=== PATIENT | female | born 1990 | race Caucasian/White ===

== ENCOUNTER 2024-01-28 10:41 | Outpatient (OUT) | payer BC, SELFPAY ==
[2024-01-28 11:16] LABS: Basophils Absolute Auto 0.1 10^3/uL (0.0-0.1); Basophils Percent Auto 0.6 % (0.2-2.0); Eosinophils Absolute Auto 0.4 10^3/uL (0.0-0.7); Eosinophils Percent Auto 4.1 % (0.9-7.0); Hematocrit 39.8 % (36.0-48.0); Hemoglobin 12.2 g/dL (12.0-16.0); Immature Granulocytes Abs Auto 0.04 10^3/uL (0.00-0.03); Immature Granulocytes Pct Auto 0.4 % (0.0-0.5); Lymphocytes Absolute Auto 2.2 10^3/uL (1.2-3.8); Lymphocytes Percent Auto 21.4 % (20.5-60.0); Mean Corpuscular HGB Conc 30.7 g/dL (29.9-35.2); Mean Corpuscular Hemoglobin 25.4 pg (26.7-34.0); Mean Corpuscular Volume 82.9 fL (81.0-99.0); Mean Platelet Volume 9.6 fL (9.5-13.5); Monocytes Absolute Auto 0.5 10^3/uL (0.3-0.8); Monocytes Percent Auto 4.7 % (1.7-12.0); Neutrophils Absolute Auto 6.9 10^3/uL (1.4-6.5); Neutrophils Percent Auto 68.8 % (43.0-75.0); Platelet Count 337 10^3/uL (150-450); Red Cell Distribution Width 14.5 % (11.0-15.0); White Blood Count 10.1 10^3/uL (4.0-11.0)
[2024-01-28 11:39] LABS: Estimated Average Glucose 123 mg/dL; Glycohemoglobin A1C 5.9 % (4.5-6.2)
[2024-01-28 12:42] LABS: Alanine Aminotransferase 37 U/L (14-59); Albumin Globulin Ratio 0.8; Albumin Level 3.3 g/dL (3.4-5.0); Alkaline Phosphatase 64 U/L (46-116); Anion Gap 10.6; Aspartate Amino Transferase 20 U/L (15-37); BUN Creatinine Ratio 20.5; Calcium 8.8 mg/dL (8.5-10.1); Carbon Dioxide 29.4 mmol/L (21.0-32.0); Chloride 104 mmol/L (98-107); Chol HDL Ratio 4.7; Cholesterol 175 mg/dL (<=200); Estimated GFR (African America >60 (>=60); Estimated GFR (Non-African Ame >60 (>=60); Free T3 2.58 pg/mL (2.18-3.98); Globulin 4.4 g/dL; Glucose 83 mg/dL (74-106); HDL Cholesterol 37 mg/dL (40-60); Sodium 140 mmol/L (136-145); Thyroid Stimulating Hormone 3.549 uIU/mL (0.358-3.740); Total Protein 7.7 g/dL (6.4-8.2); Triglycerides 156 mg/dL (<=150); VLDL CHOLESTEROL 31.2 mg/dL
[2024-01-29 12:07] LABS: Insulin 22.7 uIU/mL (2.6-24.9)
== END 2024-01-28 10:42 | disposition home or self-care (01) ==
LOC: LAB 10:46
PROVIDERS: PCP Nurse Practitioner Family; Visit Provider Nurse Practitioner Family
DX: Z00.00 Encounter for general adult medical examination without abnormal findings (principal); E78.1 Pure hyperglyceridemia; R53.83 Other fatigue; E11.9 Type 2 diabetes mellitus without complications; E03.9 Hypothyroidism, unspecified; E55.9 Vitamin D deficiency, unspecified
CPT/HCPCS: 36415; 80053; 80061; 82306; 83036; 83525; 83540; 84436; 84443; 84481; 85025

== ENCOUNTER 2024-03-14 16:41 | Emergency (ER) | payer BC, SELFPAY ==
[2024-03-14 16:57] VITALS: BP 159/105; PULSE 77; TEMP 36.7; O2SAT 98; BMI 58.4
--- OUTSIDE RECORDS SUMMARY | 2024-03-14 17:01 | XMS_ITS | CCD ---
Author Organization [facility] Care Team Providers Care Production Floater Name Role Phone Monique Dudley Unavailable MONIQUE EMMANUEL Attending Unavailable LIEN, MONIQUE Primary Care Unavailable LIEN, MONIQUE Admitting Unavailable LIEN, MONIQUE Admitting Unavailable LIEN, MONIQUE Attending Unavailable LIEN, MONIQUE Consulting Unavailable LIEN, MONIQUE Primary Care Unavailable LIEN, MONIQUE Admitting Unavailable LIEN, MONIQUE Attending Unavailable LIEN, MONIQUE Consulting Unavailable LIEN, MONIQUE Primary Care Unavailable LIEN, MONIQUE Primary Care Unavailable LIEN, MONIQUE Attending Unavailable LIEN, MONIQUE Consulting Unavailable LIEN, MONIQUE Admitting Unavailable LIEN, MONIQUE Admitting Unavailable LIEN, MONIQUE Attending Unavailable LIEN, MONIQUE Consulting Unavailable LIEN, MONIQUE Primary Care Unavailable LIEN, MONIQUE Admitting Unavailable LIEN, MONIQUE Attending Unavailable LIEN, MONIQUE Primary Care Unavailable LIEN, MONIQUE Admitting Unavailable LIEN, MONIQUE Attending Unavailable LINE, MONIQUE Primary Care Unavailable YUDELKA, DR WESTLEY Cabral Consulting Unavailable TIA ., DR COPPOLA Admitting Unavailable REQUEST, DR LEE LISTED Primary Care Unavaila myrna WEBER ., DR COPPOLA Attending Unavailable BRIDGETTE ., SUNIL FAITH Consulting Unavailsandra Dudley NP-C Monique Attending Provider LORI Emmanuel Primary Care Provider Monique Dudley Attending Unavailable Octavia, Monique Admitting Unavailable Lien, Monique Alicia Primary Care Unavailable Allergies Allergy Classification Reported Allergen(s) Allergy Type Date of Onset Reaction(s) Facility (1 source) Egg protein Drug allergy [facility] Other (1 source) Sulf-10 Drug allergy [facility] Other (1 source) Sulfonamides (Antibiotic) Drug allergy (disorder) 3 [facility] (3 sources) Sulfonamides (Antibiotic); Translations: [Sulfa (Sulfonamide Antibiotics)] Allergy to substance 4 [facility] (3 sources) Egg Derived; Translations: [Egg Derived] Allergy to substance 4 [facility] Medications Current Medications Medication Drug Class(es) Dates Sig (Normalized) Sig (Original) cholecalciferol 0.125 mg oral tablet (2 sources) Vitamin D Start: 02-27-2024 take 125 ug by mouth once daily Cholecalciferol (Vitamin D3) Active 125 MCG PO Daily February 27, 2024 12:00am metFORMIN hydrochloride 500 mg oral tablet (2 sources) Biguanide Start: 02-27-2024 take 500 mg by mouth twice daily Metformin Active 500 MG PO Twice daily February 27, 2024 12:00am omeprazole 20 mg delayed release oral capsule (2 sources) Proton Pump Inhibitor Start: 02-27-2024 take 20 mg by mouth once daily Omeprazole Active 20 MG PO Daily February 27, 2024 12:00am [facility] (2 sources) Start: 02-27-2024 [facility] Active 0 .Route 1 February 27, 2024 12:00am As directed Problems Active Problems Problem Classification Problem Date Documented Da te Episodic/Chronic Diabetes mellitus without complication (5 sources) Type 2 diabetes mellitus without complications; Translations: [TYPE 2 DM WITHOUT COMPLICATIONS] Onset: 08-25-2022 Chronic Disorders of lipid metabolism (4 sources) Pure hyperglyceridemia; Translations: [PURE HYPERGLYCERIDEMIA] Onset: 11-15-2022 Chronic Nutritional deficiencies (1 source) Vitamin D deficiency, unspecified; Translations: [VITAMIN D DEFICIENCY UNSPECIFIED] Onset: 08-19-2022 Chronic Other non-traumatic joint disorders (1 source) Pain in right shoulder; Translations: [Pain in right shoulder] Onset: 02-27-2024 Episodic Other upper respiratory disease (1 source) Allergic rhinitis due to pollen; Translations: [Allergic rhinitis due to pollen] Chronic Other upper respiratory infections (4 sources) Chronic sinusitis, unspecified; Translations: [CHRONIC SINUSITIS UNSPECIFIED] Onset: 01-05-2023 Chronic Unclassified (1 source) CONTACT W/AND (SUSP) EXPOS COVID-19; Translations: [CONTACT W/AND (SUSP) EXPOS COVID-19] Onset: 01-06-2023 Past or Other Problems Problem Classification Problem Date Documented Da te Episodic/Chronic Abdominal pain (4 sources) Lower abdominal pain, unspecified; Translations: [Unspecified abdominal pain] Onset: 06-01-2022 Episodic Administrative/social admission (1 source) Dietary counseling and surveillance; Translations: [DIETARY COUNSELING AND SURVEILLANCE] Onset: 08-28-2022 Episodic Nausea and vomiting (1 source) Nausea; Translations: [NAUSEA] Onset: 06-03-2022 Episodic Other connective tissue disease (1 source) Pain in right finger(s) Onset: 03-22-2022 Resolved: 03-22-2022 Episodic Spondylosis; intervertebral disc disorders; other back problems (4 sources) Sciatica, right side; Translations: [SCIATICA RIGHT SIDE] Onset: 11-28-2022 Episodic Sprains and strains (1 source) Unspecified sprain of right ring finger, initial encounter Onset: 03-22-2022 Resolved: 03-22-2022 Episodic Results Test Name Value Interpretation Reference Range Facility XR shoulder RT min 2V*on XR shoulder RT min 2V* [facility] [place] [address] [place] [address] XRay Report Signed Patient: Kyung Paul MR#: [id number] : 1990 Acct:[id number] Age/Sex: 33 / F ADM Date: 02/27/24 Loc: XDUCLY Room: Type: [facility] Attending Dr: Monique SANDOVAL Copies to: LORI Dias Ordering Provider: LORI Dias Date of Service: 02/27/24 XR/XR shoulder RT min 2V*: M25.511 - Pain in right shoulder RIGHT SHOULDER - 3 views CLINICAL HISTORY: Shoulder injury 3 days ago while lifting heavy object. Constant pain and difficulty with abduction COMPARISON: None AP, Y and Grashey views were obtained. There is no evidence of fracture or dislocation. Minor degenerative change is present at the acromioclavicular joint and greater tuberosity. There are no significant soft tissue abnormalities. XR/XR shoulder RT min 2V* IMPRESSION: NO ACUTE BONY FINDINGS. Impression dictated by: Leisa Adames M.D.02/27/2024 6:14 PM Dictation Location: [place] [address] Transcribed By: [facility] 02/27/241813 Dictated By: Leisa Adames MD 02/27/241812 Signed By: 02/27/241813 Normal [facility] GLYCOHEMOGLOBIN A1Con 2022 ADA RECOMMENDATION SEE BELOW Normal [facility] Comment on above: Result Comment: ADA RECOMMENDED LIMIT 4.0 - 6.0 ADA THERAPEUTIC TARGET < 7.0 ACTION SUGGESTED > 7.0 Performed By: #### A 1C #### [facility] [address] [place] [address] Dr. Benito Dupree Glucose [Mass/Vol] 105 mg/dL Normal [facility] Comment on above: Performed By: #### A 1C #### [facility] [address] [place] [address] Dr. Benito Dupree HbA1c (Bld) [Mass fraction] 5.3 % Normal 4.5-6.2 [facility] Comment on above: Performed By: #### A 1C #### [facility] [address] [place] [address] Dr. Benito Dupree Covid-19 PCR (CVDTB)on SARS-CoV-2 (COVID-19) RNA MUKUND+probe Ql (Unsp spec) Not detected Normal NOT DETECTED [facility] Comment on above: Result Comment: This test is not yet approved or cleared by the [place] FDA. When there are no FDA-approved or cleared tests available, and other criteria are met, FDA can make tests available under an emergency access mechanism called an Emergency Use Authorization (EUA). The EUA for this test is supported by the [place] of Health and Human Service's (HHS's) declaration that circumstances exist to justify the emergency use of in vitro diagnostics for the detection and/or diagnosis of the virus that causes COVID-19. This EUA will remain in effect (meaning this test can be used) for the duration of the COVID-19 declaration justifying emergency of IVDs, unless it is terminated or revoked by FDA (after which the test may no longer be used). When diagnostic testing is negative, the possibility of a false negative should be considered in the context of a patient's recent exposures and the presence of clinical signs and symptoms consistent with SARS-CoV-2. Performed By: #### C VDTBH #### [facility] [address] [place] [address] Dr. Benito Dupree INFLUENZA A AND B AGon 01-05 INFLUANEGH SEE BELOW Normal [facility] Comment on above: Result Comment: Nega tive for Flu A protein angiten. Infection due to Flu A cannot be ruled out. Flu A angiten in the sample may be below the detection limit of the test. Performed By: #### I NFLUAB #### [facility] [address] [place] [address] Dr. [facility] BELOW Normal [facility] Comment on above: Result Comment: Nega tive for Flu B protein antigen. Infection due to Flu B cannot be ruled out. Flu B antigen in the sample may be below the detection limit of the test. Performed By: #### I NFLUAB #### [facility] [address] [place] [address] Dr. Benito Dupree INFLUENZA A AG Negative Normal NEGATIVE SEE COMMENT [facility] Comment on above: Performed By: #### I NFLUAB #### [facility] [address] [place] [address] Dr. Benito Dupree INFLUENZA B AG Negative Normal NEGATIVE SEE COMMENT [facility] Comment on above: Performed By: #### I NFLUAB #### [facility] [address] [place] [address] Dr. Benito Dupree GLYCOHEMOGLOBIN A1Con 2021 ADA RECOMMENDATION SEE BELOW Normal [facility] Comment on above: Result Comment: ADA RECOMMENDED LIMIT 4.0 - 6.0 ADA THERAPEUTIC TARGET < 7.0 ACTION SUGGESTED > 7.0 Performed By: #### A 1C #### [facility] [address] [place] [address] Dr. Benito Dupree Glucose [Mass/Vol] 143 mg/dL Normal [facility] Comment on above: Performed By: #### A 1C #### [facility] [address] [address] [address] Benito Dupree HbA1c (Bld) [Mass fraction] 6.6 % Critically high 4.5-6.2 [facility] Comment on above: Performed By: #### A 1C #### [facility] [address] [place] [address] [address] Benito Dupree LIPID PROFILEon 11-15-2022 CHOL-HDL RATIO NORM SEE BELOW Normal [facility] Comment on above: Result Comment: 3.3 - 4.4 LOW RISK 4.4 - 7.1 AVERAGE RISK 7.1 - 11.0 MODERATE RISK >11.0 HIGH RISK Performed By: #### I NFLUAB #### [facility] [address] [place] [address] [address] Benito Dupree Cholesterol [Mass/Vol] 154 mg/dL Normal <=200 [facility] Comment on above: Performed By: #### I NFLUAB #### [facility] [address] [place] [address] [address] Benito Dupree Cholesterol in HDL [Mass/Vol] 29 mg/dL Critically low 40-60 [facility] Comment on above: Performed By: #### I NFLUAB #### [facility] [address] [address] [address] Benito Dupree Cholesterol in LDL [Mass/Vol] 98.2 mg/dL Normal [facility] Comment on above: Performed By: #### I NFLUAB #### [facility] [address] [place] [address] [address] Benito Dupree Cholesterol.total/C holesterol in HDL [Mass ratio] 5.3 {ratio} Normal [facility] Comment on above: Performed By: #### I NFLUAB #### [facility] [address] [place] [address] [address] Benito Dupree HDL NORMAL > or = 60 mg/dl - LO W CARDIOVASCULAR RISK <40 mg/dl - HIGH CARDIOVASCULAR RISK Normal [facility] Comment on above: Performed By: #### I NFLUAB #### [facility] [address] [address] [address] Benito Dupree LDL CALC NORMAL SEE BELOW Normal [facility] Comment on above: Result Comment: <100 mg/dl OPTIMAL 100 - 129 mg/dl NEAR OR ABOVE OPTIMAL 130 - 159 mg/dl BORDERLINE HIGH 160 - 189 mg/dl HIGH >190 mg/dl VERY HIGH Performed By: #### I NFLUAB #### [facility] [address] [address] [address] Benito Dupree Triglyceride [Mass/Vol] 134 mg/dL Normal <=150 [facility] Comment on above: Performed By: #### I NFLUAB #### [facility] [address] [place] [address] Dr. Benito Dupree VLDL CALC 26.8 mg/dL Normal [facility] Comment on above: Performed By: #### I NFLUAB #### [facility] [address] [place] [address] Dr. Benito Dupree INSULINon 08-19-2022 Insulin 24.3 uIU/mL Normal 2.6-24.9 [facility] Comment on above: Performed By: #### I NFLUAB #### [facility] [address] [place] [address] Dr. Benito Dupree T4, T3U, FTI LABCORPon 08-19 Free Thyroxine Index 2.6 Normal 1.2-4.9 [facility] Comment on above: Performed By: #### T HYLC #### [facility] [address] [place] [address] Dr. Benito Dupree T3 Uptake 29 % Normal 24-39 [facility] Comment on above: Performed By: #### T HYLC #### [facility] [address] [place] [address] Dr. Benito Dupree T4 [Mass/Vol] 8.8 ug/dL Normal 4.5-12.[address] [facility] Comment on above: Performed By: #### T HYLC #### [facility] [address] [place] [address] Dr. Benito Dupree CBC AUTO DIFFon 08-18-2022 BASO # 0.1 103/ul Normal 0.0-0.1 [facility] Comment on above: Performed By: #### I NFLUAB #### [facility] [address] [place] [address] Dr. Benito Dupree Basophils/100 WBC (Bld) 0.8 % Normal 0.2-2.0 [facility] Comment on above: Performed By: #### I NFLUAB #### [facility] [address] [address] [address] Benito Dupree EO # 0.3 103/ul Normal 0.0-0.7 [facility] Comment on above: Performed By: #### I NFLUAB #### [facility] [address] [place] [address] Dr. Benito Dupree Eosinophils/100 WBC (Bld) 2.8 % Normal 0.9-7.0 [facility] Comment on above: Performed By: #### I NFLUAB #### [facility] [address] [place] [address] Dr. Benito Dupree Erythrocyte distribution width (RBC) [Ratio] 15.4 % Critically high 11.0-15.0 [facility] Comment on above: Performed By: #### I NFLUAB #### [facility] [address] [place] [address] Dr. Benito Dupree Hematocrit (Bld) [Volume fraction] 43.7 % Normal 36.0-48.0 [facility] Comment on above: Performed By: #### I NFLUAB #### [facility] [address] [place] [address] Dr. Benito Dupree Hemoglobin (Bld) [Mass/Vol] 14.2 g/dL Normal 12.0-16.0 [facility] Comment on above: Performed By: #### I NFLUAB #### [facility] [address] [place] [address] Dr. Benito Dupree IG # 0.08 10e3/ul Critically high 0.00-0.03 [facility] Comment on above: Performed By: #### I NFLUAB #### [facility] [address] [address] [address] Benito Dupree IG % 0.9 % Critically high 0.0-0.5 [facility] Comment on above: Performed By: #### I NFLUAB #### [facility] [address] [place] [address] [address] Benito Dupree LYMPH # 2.3 103/ul Normal 1.2-3.8 [facility] Comment on above: Performed By: #### I NFLUAB #### [facility] [address] [address] [address] Benito Dupree Lymphocytes/100 WBC (Bld) 24.3 % Normal 20.5-60.0 [facility] Comment on above: Performed By: #### I NFLUAB #### [facility] [address] [place] [address] Dr. Benito Dupree MANUAL DIFF REQ NO Normal [facility] Comment on above: Performed By: #### I NFLUAB #### [facility] [address] [address] [address] Benito Dupree MCH (RBC) [Entitic mass] 26.1 pg Critically low 26.7-34.0 [facility] Comment on above: Performed By: #### I NFLUAB #### [facility] [address] [address] [address] Benito Dupree MCHC (RBC) [Mass/Vol] 32.5 g/dL Normal 29.9-35.2 [facility] Comment on above: Performed By: #### I NFLUAB #### [facility] [address] [address] [address] Benito Dupree MCV (RBC) [Entitic vol] 80.2 fL Critically low 81.0-99.0 [facility] Comment on above: Performed By: #### I NFLUAB #### [facility] [address] [address] [address] Benito Dupree MONO # 0.5 103/ul Normal 0.3-0.8 [facility] Comment on above: Performed By: #### I NFLUAB #### [facility] [address] [place] [address] Dr. Benito Dupree Monocytes/100 WBC (Bld) 5.2 % Normal 1.7-12.0 [facility] Comment on above: Performed By: #### I NFLUAB #### [facility] [address] [address] [address] Benito Dupree NEUT # 6.1 103/ul Normal 1.4-6.5 [facility] Comment on above: Performed By: #### I NFLUAB #### [facility] [address] [place] [address] Dr. Benito Dupree Neutrophils/100 WBC (Bld) 66.0 % Normal 43.0-75.0 [facility] Comment on above: Performed By: #### I NFLUAB #### [facility] [address] [place] [address] Dr. Benito Dupree Platelet mean volume (Bld) [Entitic vol] 9.9 fL Normal 9.5-13.5 [facility] Comment on above: Performed By: #### I NFLUAB #### [facility] [address] [place] [address] Dr. Benito Dupree PLT 291 103/ul Normal 150-450 [facility] Comment on above: Performed By: #### I NFLUAB #### [facility] [address] [place] [address] Dr. Benito Dupree RBC 5.45 106/ul Critically high 4.20-5.[address] [facility] Comment on above: Performed By: #### I NFLUAB #### [facility] [address] [place] [address] Dr. Benito Dupree WBC 9.3 103/ul Normal 4.0-11.0 [facility] Comment on above: Performed By: #### I NFLUAB #### [facility] [address] [place] [address] Dr. Benito Dupree DIRECT LDLon 08-18-2022 Cholesterol in LDL [Mass/Vol] 50 mg/dL Normal [facility] Comment on above: Performed By: #### T HYLC #### [facility] [address] [address] [address] Benito Dupree DLDL NORMAL SEE BELOW Normal [facility] Comment on above: Result Comment: <100 mg/dl OPTIMAL 100 - 129 mg/dl NEAR OR ABOVE OPTIMAL 130 - 159 mg/dl BORDERLINE HIGH 160 - 189 mg/dl HIGH >190 mg/dl VERY HIGH Performed By: #### T HYLC #### [facility] [address] [address] [address] Benito Dupree GLYCOHEMOGLOBIN A1Con 2021 ADA RECOMMENDATION SEE BELOW Normal [facility] Comment on above: Result Comment: ADA RECOMMENDED LIMIT 4.0 - 6.0 ADA THERAPEUTIC TARGET < 7.0 ACTION SUGGESTED > 7.0 Performed By: #### A 1C #### [facility] [address] [place] [address] Dr. Benito Dupree Glucose [Mass/Vol] 332 mg/dL Normal [facility] Comment on above: Performed By: #### A 1C #### [facility] [address] [place] [address] Dr. Benito Dupree HbA1c (Bld) [Mass fraction] 13.2 % Critically high 4.5-6.2 [facility] Comment on above: Performed By: #### A 1C #### [facility] [address] [place] [address] Dr. Benito Dupree IRONon 08-18-2022 Iron [Mass/Vol] 53.0 ug/dL Normal 50.0-170.0 [facility] Comment on above: Performed By: #### I NFLUAB #### [facility] [address] [place] [address] Dr. Benito Dupree LIPID PROFILEon 08-18-2022 CHOL-HDL RATIO NORM SEE BELOW Normal [facility] Comment on above: Result Comment: 3.3 - 4.4 LOW RISK 4.4 - 7.1 AVERAGE RISK 7.1 - 11.0 MODERATE RISK >11.0 HIGH RISK Performed By: #### T HYLC #### [facility] [address] [place] [address] Dr. Benito Dupree Cholesterol [Mass/Vol] 260 mg/dL Critically high <=200 [facility] Comment on above: Performed By: #### T HYLC #### [facility] [address] [address] [address] Benito Dupree Cholesterol in HDL [Mass/Vol] 23 mg/dL Critically low 40-60 [facility] Comment on above: Performed By: #### T HYLC #### [facility] [address] [address] [address] Benito Dupree Cholesterol.total/C holesterol in HDL [Mass ratio] 11.3 {ratio} Normal [facility] Comment on above: Performed By: #### T HYLC #### [facility] [address] [place] [address] Dr. Benito Dupree HDL NORMAL > or = 60 mg/dl - LO W CARDIOVASCULAR RISK <40 mg/dl - HIGH CARDIOVASCULAR RISK Normal [facility] Comment on above: Performed By: #### T HYLC #### [facility] [address] [place] [address] Dr. Benito Dupree Triglyceride [Mass/Vol] 1711 mg/dL Critically high <=150 [facility] Comment on above: Performed By: #### T HYLC #### [facility] [address] [place] [address] Dr. Benito Dupree VLDL CALC 342.2 mg/dL Normal [facility] Comment on above: Performed By: #### T HYLC #### [facility] [address] [place] [address] Dr. Benito Dupree PROF 14(COMP METB)on 022 Albumin [Mass/Vol] 3.2 g/dL Critically low 3.4-5.0 [facility] Comment on above: Performed By: #### T HYLC #### [facility] [address] [place] [address] Dr. Benito Dupree Albumin/Globulin [Mass ratio] 0.7 {ratio} Normal [facility] Comment on above: Performed By: #### T HYLC #### [facility] [address] [place] [address] Dr. Benito Dupree ALP [Catalytic activity/Vol] 92 U/L Normal 46-116 [facility] Comment on above: Performed By: #### T HYLC #### [facility] [address] [place] [address] Dr. Benito Dupree ALT [Catalytic activity/Vol] 41 U/L Normal 14-59 [facility] Comment on above: Performed By: #### T HYLC #### [facility] [address] [place] [address] Dr. Benito Dupree Anion gap [Moles/Vol] 14.1 mmol/L Normal [facility] Comment on above: Performed By: #### T HYLC #### [facility] [address] [place] [address] Dr. Benito Dupree AST [Catalytic activity/Vol] 16 U/L Normal 15-37 [facility] Comment on above: Performed By: #### T HYLC #### [facility] [address] [place] [address] Dr. Benito Dupree Bilirubin [Mass/Vol] 0.9 mg/dL Normal 0.2-1.0 [facility] Comment on above: Performed By: #### T HYLC #### [facility] [address] [place] [address] Dr. Benito Dupree Calcium [Mass/Vol] 9.1 mg/dL Normal 8.5-10.1 [facility] Comment on above: Performed By: #### T HYLC #### [facility] [address] [place] [address] Dr. Benito Dupree Chloride [Moles/Vol] 97 mmol/L Critically low 98-107 [facility] Comment on above: Performed By: #### T HYLC #### [facility] [address] [place] [address] Dr. Benito Dupree CO2 [Moles/Vol] 24.9 mmol/L Normal 21.0-32.[address] [facility] Comment on above: Performed By: #### T HYLC #### [facility] [address] [place] [address] Dr. Benito Dupree Creatinine [Mass/Vol] 0.67 mg/dL Normal 0.55-1.02 [facility] Comment on above: Performed By: #### T HYLC #### [facility] [address] [address] [address] Benito Dupree EGFR-AF SALVADOREAN >60 Normal >=60 [facility] Comment on above: Performed By: #### T HYLC #### [facility] [address] [address] [address] Benito Dupree EGFR-NON AF SALVADOREAN >60 Normal >=60 [facility] Comment on above: Performed By: #### T HYLC #### [facility] [address] [address] [address] Benito Dupree Globulin (S) [Mass/Vol] 4.6 g/dL Normal [facility] Comment on above: Performed By: #### T HYLC #### [facility] [address] [place] [address] Dr. Benito Dupree Glucose [Mass/Vol] 402 mg/dL Critically high 74-106 [facility] Comment on above: Performed By: #### T HYLC #### [facility] [address] [address] [address] Benito Dupree Potassium [Moles/Vol] 4.0 mmol/L Normal 3.5-5.1 [facility] Comment on above: Performed By: #### T HYLC #### [facility] [address] [place] [address] Dr. Benito Dupree Protein [Mass/Vol] 7.8 g/dL Normal 6.4-8.2 [facility] Comment on above: Performed By: #### T HYLC #### [facility] [address] [address] [address] Benito Dupree Sodium [Moles/Vol] 132 mmol/L Critically low 136-145 [facility] Comment on above: Performed By: #### T HYLC #### [facility] [address] [address] [address] Benito Dupree Urea nitrogen [Mass/Vol] 10.0 mg/dL Normal 7.0-18.0 [facility] Comment on above: Performed By: #### T HYLC #### [facility] [address] [place] [address] Dr. Benito Dupree Urea nitrogen/Creatinine [Mass ratio] 14.9 mg/mg Normal [facility] Comment on above: Performed By: #### T HYLC #### [facility] [address] [place] [address] Dr. Benito Dupree TSHon 08-18-2022 TSH 3.676 uIU/mL Normal 0.358-3.740 [facility] Comment on above: Performed By: #### T HYLC #### [facility] [address] [place] [address] Dr. Benito Dupree VITAMIN D 25 OHon 08-18-2022 VIT D 25-OH 13.9 ng/mL Normal [facility] Comment on above: Performed By: #### I NFLUAB #### [facility] [address] [place] [address] Dr. Benito Dupree VIT D RANGES SEE BELOW Normal [facility] Comment on above: Result Comment: <20 ng/mL Vit D deficient 20 - <30 ng/mL Vit D insufficient 30 - 100 ng/mL Vit D sufficient >100 ng/mL Potential Toxicity Performed By: #### I NFLUAB #### [facility] [address] [place] [address] Dr. Benito Dupree AMYLASEon 06-01-2022 Amylase [Catalytic activity/Vol] 29 U/L Normal 25-115 [facility] Comment on above: Performed By: #### I NFLUAB #### [facility] [address] [place] [address] Dr. Benito Dupree CBC AUTO DIFFon 06-01-2022 BASO # 0.1 103/ul Normal 0.0-0.1 [facility] Comment on above: Performed By: #### I NFLUAB #### [facility] [address] [place] [address] Dr. Benito Dupree Basophils/100 WBC (Bld) 0.5 % Normal 0.2-2.0 [facility] Comment on above: Performed By: #### I NFLUAB #### [facility] [address] [place] [address] Dr. Benito Dupree EO # 0.3 103/ul Normal 0.0-0.7 [facility] Comment on above: Performed By: #### I NFLUAB #### [facility] [address] [place] [address] Dr. Benito Dupree Eosinophils/100 WBC (Bld) 2.0 % Normal 0.9-7.0 [facility] Comment on above: Performed By: #### I NFLUAB #### [facility] [address] [place] [address] Dr. Benito Dupree Erythrocyte distribution width (RBC) [Ratio] 15.3 % Critically high 11.0-15.0 [facility] Comment on above: Performed By: #### I NFLUAB #### [facility] [address] [place] [address] Dr. Benito Dupree Hematocrit (Bld) [Volume fraction] 41.5 % Normal 36.0-48.0 [facility] Comment on above: Performed By: #### I NFLUAB #### [facility] [address] [place] [address] Dr. Benito Dupree Hemoglobin (Bld) [Mass/Vol] 12.7 g/dL Normal 12.0-16.0 [facility] Comment on above: Performed By: #### I NFLUAB #### [facility] [address] [place] [address] Dr. Benito Dupree IG # 0.06 10e3/ul Critically high 0.00-0.03 [facility] Comment on above: Performed By: #### I NFLUAB #### [facility] [address] [place] [address] Dr. Benito Dupree IG % 0.4 % Normal 0.0-0.5 [facility] Comment on above: Performed By: #### I NFLUAB #### [facility] [address] [place] [address] Dr. Benito Dupree LYMPH # 1.9 103/ul Normal 1.2-3.8 [facility] Comment on above: Performed By: #### I NFLUAB #### [facility] [address] [address] [address] Benito Dupree Lymphocytes/100 WBC (Bld) 13.9 % Critically low 20.5-60.0 [facility] Comment on above: Performed By: #### I NFLUAB #### [facility] [address] [address] [address] Benito Dupree MANUAL DIFF REQ NO Normal [facility] Comment on above: Performed By: #### I NFLUAB #### [facility] [address] [place] [address] Dr. Benito Dupree MCH (RBC) [Entitic mass] 24.7 pg Critically low 26.7-34.0 [facility] Comment on above: Performed By: #### I NFLUAB #### [facility] [address] [place] [address] Dr. Benito Dupree MCHC (RBC) [Mass/Vol] 30.6 g/dL Normal 29.9-35.2 [facility] Comment on above: Performed By: #### I NFLUAB #### [facility] [address] [place] [address] Dr. Benito Dupree MCV (RBC) [Entitic vol] 80.6 fL Critically low 81.0-99.0 [facility] Comment on above: Performed By: #### I NFLUAB #### [facility] [address] [place] [address] Dr. Benito Dupree MONO # 0.5 103/ul Normal 0.3-0.8 [facility] Comment on above: Performed By: #### I NFLUAB #### [facility] [address] [place] [address] Dr. Benito Dupree Monocytes/100 WBC (Bld) 4.0 % Normal 1.7-12.0 [facility] Comment on above: Performed By: #### I NFLUAB #### [facility] [address] [place] [address] Dr. Benito Dupree NEUT # 10.6 103/ul Critically high 1.4-6.5 [facility] Comment on above: Performed By: #### I NFLUAB #### [facility] [address] [place] [address] Dr. Benito Dupree Neutrophils/100 WBC (Bld) 79.2 % Critically high 43.0-75.0 [facility] Comment on above: Performed By: #### I NFLUAB #### [facility] [address] [place] [address] Dr. Benito Dupree Platelet mean volume (Bld) [Entitic vol] 9.3 fL Critically low 9.5-13.5 [facility] Comment on above: Performed By: #### I NFLUAB #### [facility] [address] [place] [address] Dr. Benito Dupree PLT 391 103/ul Normal 150-450 [facility] Comment on above: Performed By: #### I NFLUAB #### [facility] [address] [place] [address] Dr. Benito Dupree RBC 5.15 106/ul Normal 4.20-5.40 [facility] Comment on above: Performed By: #### I NFLUAB #### [facility] [address] [place] [address] Dr. Benito Dupree WBC 13.4 103/ul Critically high 4.0-11.0 [facility] Comment on above: Performed By: #### I NFLUAB #### [facility] [address] [place] [address] ABD/PELV W CONon 06-01-20 CT ABD/PELV W CON EXAMINATION: CT ABD/PELV W CON HISTORY: GENERALIZED ABDOMINAL PAIN COMPARISON: CT abdomen and pelvis 02/23/2016 TECHNIQUE: Axial, Coronal, and Sagittal images were created with IV contrast. Dose reduction techniques were achieved by using automated exposure control and/or adjustment of mA and/or kV according to patient size and/or use of iterative reconstruction technique. FINDINGS: LUNG BASES: No visible pulmonary or pleural disease. LIVER: Fatty infiltration. No enlargement, atrophy, suspicious density, or significant focal lesion. BILIARY: Cholecystectomy. PANCREAS: No lesion, fluid collection, or abnormal duct dilatation. SPLEEN: No enlargement or focal lesion. ADRENALS: No mass or enlargement. KIDNEYS: Hypodensity within inferior pole of right kidney favoring a benign cyst. No mass, obstruction, or calcification. BOWEL/MESENTERY: No visible mass, obstruction, or bowel wall thickening. Normal appendix. AORTA/VASCULAR: No aneurysm or dissection. RETROPERITONEUM: No mass or adenopathy. LYMPH NODES: No adenopathy. URINARY BLADDER: No visible focal wall thickening, lesion, or calculus. PELVIC ORGANS: No visible mass. Pelvic organs appropriate for patient age. ABDOMINAL WALL: No mass or hernia. BONES: No bony lesion or fracture. OTHER: Negative. IMPRESSION: 1. Fatty infiltration of liver. 2. No acute or suspicious findings to account for patient's symptoms. Electronically authenticated by: WESTLEY JHA Date: 2022-06-01 14:59 Normal [facility] URINE PROFILEon 2 Bilirubin Ql (U) Negative Normal NEGATIVE [facility] Comment on above: Performed By: #### U MICRO, ERUR #### [facility] [address] [place] [address] Dr. Benito Dupree Clarity (U) SL CLOUDY Abnormal CLEAR [facility] Comment on above: Performed By: #### U MICRO, ERUR #### [facility] [address] [address] [address] Benito Dupree Color (U) YELLOW Normal YELLOW [facility] Comment on above: Performed By: #### U MICRO, ERUR #### [facility] [address] [address] [address] Benito Dupree ERUAHD A micrscopic examination will be performed if indicated. Normal [facility] Comment on above: Performed By: #### U MICRO, ERUR #### [facility] [address] [address] [address] Benito Dupree Glucose Ql (U) Negative Normal NEGATIVE [facility] Comment on above: Performed By: #### U MICRO, ERUR #### [facility] [address] [address] [address] Benito Dupree Hemoglobin Ql (U) LARGE Abnormal NEGATIVE [facility] Comment on above: Performed By: #### U MICRO, ERUR #### [facility] [address] [address] [address] Benito Dupree Ketones Ql (U) Negative Normal NEGATIVE [facility] Comment on above: Performed By: #### U MICRO, ERUR #### [facility] [address] [address] [address] Benito Dupree LEUKOCYTES Negative Normal NEGATIVE [facility] Comment on above: Performed By: #### U MICRO, ERUR #### [facility] [address] [address] [address] Benito Dupree Nitrite Ql (U) Negative Normal NEGATIVE [facility] Comment on above: Performed By: #### U MICRO, ERUR #### [facility] [address] [place] [address] Dr. Benito Dupree pH (U) 5.5 [pH] Normal 5-9 [facility] Comment on above: Performed By: #### U MICRO, ERUR #### [facility] [address] [address] [address] Benito Dupree SPEC GRAVITY 1.010 Normal 1.005-<=1.025 [facility] Comment on above: Performed By: #### U MICRO, ERUR #### [facility] [address] [place] [address] Dr. Benito Dupree UA PROTEIN TRACE Normal NEGATIVE/ TRACE [facility] Comment on above: Performed By: #### U MICRO, ERUR #### [facility] [address] [address] [address] Benito Dupree UR MICRO IND INDICATED Normal [facility] Comment on above: Performed By: #### U MICRO, ERUR #### [facility] [address] [address] [address] Benito Dupree Urobilinogen Qn (U) 1.0 {Tuyet'U}/dL Normal 0.2 - 1. 0 [facility] Comment on above: Performed By: #### U MICRO, ERUR #### [facility] [address] [place] [address] Dr. Benito Dupree LACTATE/LACTIC ACIDon 2021 Lactate [Moles/Vol] 1.1 mmol/L Normal 0.4-1.9 [facility] Comment on above: Performed By: #### L ACT #### [facility] [address] [place] [address] Dr. Benito Dupree LIPASEon 06-01-2022 Lipase [Catalytic activity/Vol] 111.0 U/L Normal 73.0-393.0 [facility] Comment on above: Performed By: #### I NFLUAB #### [facility] [address] [place] [address] Dr. Benito Dupree PREG HCG QUALon 06-01-2022 , QUAL Negative Normal NEGATIVE [facility] Comment on above: Performed By: #### P REG #### [facility] [address] [place] [address] Dr. Benito Dupree PROF 14(COMP METB)on 022 Albumin [Mass/Vol] 3.6 g/dL Normal 3.4-5.0 [facility] Comment on above: Performed By: #### I NFLUAB #### [facility] [address] [place] [address] Dr. Benito Dupree Albumin/Globulin [Mass ratio] 0.7 {ratio} Normal [facility] Comment on above: Performed By: #### I NFLUAB #### [facility] [address] [place] [address] Dr. Benito Dupree ALP [Catalytic activity/Vol] 90 U/L Normal 46-116 [facility] Comment on above: Performed By: #### I NFLUAB #### [facility] [address] [place] [address] Dr. Benito Dupree ALT [Catalytic activity/Vol] 39 U/L Normal 14-59 [facility] Comment on above: Performed By: #### I NFLUAB #### [facility] [address] [place] [address] Dr. Benito Dupree Anion gap [Moles/Vol] 13.0 mmol/L Normal [facility] Comment on above: Performed By: #### I NFLUAB #### [facility] [address] [address] [address] Benito Dupree AST [Catalytic activity/Vol] 25 U/L Normal 15-37 [facility] Comment on above: Performed By: #### I NFLUAB #### [facility] [address] [address] [address] Benito Dupree Bilirubin [Mass/Vol] 1.1 mg/dL Critically high 0.2-1.0 [facility] Comment on above: Performed By: #### I NFLUAB #### [facility] [address] [address] [address] Benito Dupree Calcium [Mass/Vol] 9.4 mg/dL Normal 8.5-10.1 [facility] Comment on above: Performed By: #### I NFLUAB #### [facility] [address] [address] [address] Benito Dupree Chloride [Moles/Vol] 99 mmol/L Normal 98-107 [facility] Comment on above: Performed By: #### I NFLUAB #### [facility] [address] [address] [address] Benito Dupree CO2 [Moles/Vol] 27.3 mmol/L Normal 21.0-32.0 [facility] Comment on above: Performed By: #### I NFLUAB #### [facility] [address] [place] [address] Dr. Benito Dupree Creatinine [Mass/Vol] 0.87 mg/dL Normal 0.55-1.02 [facility] Comment on above: Performed By: #### I NFLUAB #### [facility] [address] [address] [address] Benito Dupree EGFR-AF SALVADOREAN >60 Normal >=[address] [facility] Comment on above: Performed By: #### I NFLUAB #### [facility] [address] [address] [address] Benito Dupree EGFR-NON AF SALVADOREAN >60 Normal >=60 [facility] Comment on above: Performed By: #### I NFLUAB #### [facility] [address] [address] [address] Benito Dupree Globulin (S) [Mass/Vol] 4.8 g/dL Normal [facility] Comment on above: Performed By: #### I NFLUAB #### [facility] [address] [place] [address] Dr. Benito Dupree Glucose [Mass/Vol] 218 mg/dL Critically high 74-106 [facility] Comment on above: Performed By: #### I NFLUAB #### [facility] [address] [place] [address] Dr. Benito Dupree Potassium [Moles/Vol] 4.1 mmol/L Normal 3.5-5.1 [facility] Comment on above: Performed By: #### I NFLUAB #### [facility] [address] [place] [address] Dr. Benito Dupree Protein [Mass/Vol] 8.4 g/dL Critically high 6.4-8.2 [facility] Comment on above: Performed By: #### I NFLUAB #### [facility] [address] [place] [address] Dr. Benito Dupree Sodium [Moles/Vol] 135 mmol/L Critically low 136-145 [facility] Comment on above: Performed By: #### I NFLUAB #### [facility] [address] [place] [address] Dr. Benito Dupree Urea nitrogen [Mass/Vol] 15.0 mg/dL Normal 7.0-18.0 [facility] Comment on above: Performed By: #### I NFLUAB #### [facility] [address] [place] [address] Dr. Benito Dupree Urea nitrogen/Creatinine [Mass ratio] 17.2 mg/mg Normal [facility] Comment on above: Performed By: #### I NFLUAB #### [facility] [address] [place] [address] Dr. Benito Dupree URINE MICROSCOPIC ONLYon BACTERIA TRACE Abnormal NONE SEEN [facility] Comment on above: Performed By: #### U MICRO, ERUR #### [facility] [address] [address] [address] Benito Dupree Bacteria identified Cx Nom (U) NOT INDICATED Normal [facility] Comment on above: Performed By: #### U MICRO, ERUR #### [facility] [address] [place] [address] Dr. Benito Dupree CAST NONE SEEN Normal NONE SEEN [facility] Comment on above: Performed By: #### U MICRO, ERUR #### [facility] [address] [address] [address] Benito Dupree Crystals LM Nom (Urine sed) NONE SEEN Normal NONE SEEN [facility] Comment on above: Performed By: #### U MICRO, ERUR #### [facility] [address] [place] [address] Dr. Benito Dupree Epithelial cells LM Ql (Urine sed) MODERATE Abnormal NONE SEEN /RARE [facility] Comment on above: Performed By: #### U MICRO, ERUR #### [facility] [address] [address] [address] Benito Dupree MUCOUS TRACE Abnormal NONE SEEN [facility] Comment on above: Performed By: #### U MICRO, ERUR #### [facility] [address] [place] [address] Dr. Benito Dupree RBC 2-5 Abnormal 0-2 [facility] Comment on above: Performed By: #### U MICRO, ERUR #### [facility] [address] [place] [address] Dr. Benito Dupree WBC 0-2 Abnormal NONE SEEN [facility] Comment on above: Performed By: #### U MICRO, ERUR #### [facility] [address] [place] [address] Dr. Benito Dupree XR hand RT min 3V*on 022 XR hand RT min 3V* [facility] [employer] Other XR hand RT min 3V* [facility] [employer] Other XR hand RT min 3V* [address] [place] [address] [employer] Other XR hand RT min 3V* [place] [address] [employer] Other XR hand RT min 3V* XRay Report [employer] Other XR hand RT min 3V* Signed [employer] Other XR hand RT min 3V* Patient: Kyung Paul MR#: [id number] [employer] Other XR hand RT min 3V* : 1990 Acct:[id number] [employer] Other XR hand RT min 3V* Age/Sex: 31 / F ADM Date: 03/22/22 [employer] Other XR hand RT min 3V* [facility] Room: Type: [facility] [employer] Other XR hand RT min 3V* Attending Dr: Monique SANDOVAL [employer] Other XR hand RT min 3V* Ordering Provider: LORI Dias [employer] Other XR hand RT min 3V* Date of Service: 03/22/22 [employer] Other XR hand RT min 3V* XR/XR hand RT min 3V*: Finger pain, right [employer] Other XR hand RT min 3V* Copies to: LORI Dias [employer] Other XR hand RT min 3V* 3 viewsRIGHT hand plain film [employer] Other XR hand RT min 3V* COMPARISON:None N [employer] Other XR hand RT min 3V* HISTORY:Fell going upstairs. RIGHT ring finger injury. [employer] Other XR hand RT min 3V* No fracture, dislocation or focal soft tissue abnormality seen. [employer] Other XR hand RT min 3V* XR/XR hand RT min 3V* [employer] Other XR hand RT min 3V* IMPRESSION:No acute findings [employer] Other XR hand RT min 3V* Impression dictated by: Ta Galvan M.D.03/22/2022 4:42 PM [employer] Other XR hand RT min 3V* Dictation Location: [place] [address] [employer] Other XR hand RT min 3V* Transcribed By: DANIELLE 03/22/22 [facility] [employer] Other XR hand RT min 3V* Dictated By: Ta Galvan DO 03/22/22 [facility] [employer] Other XR hand RT min 3V* Signed By: [employer] Other XR hand RT min 3V* 03/22/[address] [place] [address] [employer] Other Vital Signs Date Time Vital Sign Value Performing Clinician Facility 02-27-2024 17:36-0400 Body height 154.94 cm [employer] Monique Lien Work Phone: [facility] 02-27-2024 17:36-0400 Body mass index (BMI) [Ratio] 58.4 kg/m2 [employer] Monique Lien Work Phone: [facility] 02-27-2024 17:36-0400 Body temperature 97.7 [degF] [employer] Monique Emmanuel Work Phone: [facility] 02-27-2024 17:36-0400 Body weight 140.38 kg [employer]-Teresa Emmanuel Work Phone: [facility] 02-27-2024 17:36-0400 Heart rate 87 /min [employer] Monique Emmanuel Work Phone: [facility] 02-27-2024 17:36-0400 Respiratory rate 18 /min [employer] Monique Emmanuel Work Phone: [facility] 02-27-2024 17:36-0400 SaO2% (BldA) [Mass fraction] 97 % [employer] Monique Emmanuel Work Phone: [facility] 03-22-2022 16:45-0400 Body height 154.94 cm Monique Dudley Other [employer] Other 03-22-2022 16:45-0400 Body mass index (BMI) [Ratio] 58.38 kg/m2 Monique Dudley Other [employer] Other 03-22-2022 16:45-0400 Body temperature 97.9 [degF] Monique Suemond Other [employer] Other 03-22-2022 16:45-0400 Body weight 140.16 kg Monique Dudley Other [employer] Other 03-22-2022 16:45-0400 Diastolic blood pressure 93 mm[Hg] Monique Dudley Other [employer] Other 03-22-2022 16:45-0400 Respiratory rate 20 /min Monique Dudley Other [employer] Other 03-22-2022 16:45-0400 SaO2% (BldA) [Mass fraction] 98 % Monique Suemond Other [employer] Other 03-22-2022 16:45-0400 Systolic blood pressure 154 mm[Hg] Monique Octavia Other [employer] Other Encounters Encounter Date Encounter Type Care Provider Facility Start: 02-27-2024 End: 02-27-2024 ambulatory Monique Dudley Facility:[facility] Start: 02-27-2024 End: 02-27-2024 ambulatory [employer] Monique Emmanuel Work Phone: [facility] Work Phone: Start: 02-27-2024 End: 02-27-2024 Patient encounter procedure [employer] Monique Emmanuel Work Phone: [facility] Work Phone: Start: 04-27-2023 ambulatory MONIQUE EMMANUEL Facility: [facility] Start: 01-05-2023 End: 01-05-2023 ambulatory MONIQUE EMMANUEL Facility:[facility] Start: 11-28-2022 End: 11-29-2022 ambulatory MONIQUE EMMANUEL Facility:[facility] Start: 11-15-2022 End: 11-16-2022 ambulatory MONIQUE EMMANUEL Facility:[facility] Start: 10-25-2022 End: 11-27-2022 ambulatory MONIQUE EMMANUEL Facility:[facility] Start: 08-25-2022 End: 08-26-2022 ambulatory MONIQUE EMMANUEL Facility:[facility] Start: 08-19-2022 Encounter for genera l adult medical examination without abnormal findings MONIQUE EMMANUEL [facility] Start: 08-18-2022 End: 08-19-2022 ambulatory MONIQUE EMMANUEL Facility:[facility] Start: 08-18-2022 End: 08-19-2022 Encounter for general adult medical examination without abnormal findings MONIQUE EMMANUEL Facility:[facility] Start: 06-01-2022 End: 06-01-[address] WESTLEY JHA Facility:[facility] Start: 03-22-2022 End: 03-22-2022 ambulatory Monique Dudley Other [employer] Other Start: 03-22-2022 Office outpatient vi sit 15 minutes Monique Dudley [facility] Procedures Date Procedure Procedure Detail Performing Clinician Start: 02-27-2024 Plain X-ray of right shoulder [employer] Monique Lien Work Phone: Payers Date Payer Category Payer Self-pay [id number] 1990 Unknown [id number] 2.16.84 [id number] 1990 Unknown [id number] 2.16.84 [id number] 1988 Unknown [id number] 2.16.84 [id number] 1988 Unknown [id number] 2.16.84 [id number] 1988 Unknown [id number] 2.16.84 [id number] 1988 Unknown [id number] 2.16.84 [id number] 1988 Unknown [id number] 2.16.84 [id number] 1988 Unknown [id number] 2.16.84 [id number] 1961 [facility] [id number] Unknown [id number] 2.16.8 [id number] Social History Date Type Detail Facility Unknown if ever smoked [employer] Other Sex Assigned At Sex Assigned At Bir th [employer] Other Start: 10-25-2018 Tobacco smoking status NHIS Never smoked tobacco (finding) [facility] Start: 1990 Sex Assigned At Female F [facility] Evaluation note 03-22-2022 Note Date & Type Note Facility 03-22-2022 Evaluation note Encounter Date Diagnosis Assessment Notes Feb, Finger pain, right (ICD-10 - M79.644) Feb, Sprain of right ring finger, unspecified site of digit, initial encounter (ICD-10 - S63.614A) Keep your finger jacob taped for comfort and compression for the next week. You may remove the by taping for showering or if your pain improves. Take ibuprofen, 600 mg up to 3 times a day with food as needed for pain and swelling. Follow-up with your family physician if no improvement in 5 to 7 days. [employer] Other Evaluation note Note Date & Type Note Facility Evaluation note No assessment information availa ble [facility] Work Phone: History general Narrative - Reported Note Date & Type Note Facility History general Narrative - Reported Type Medical History Acquired hypothyroidism Medical History vitamin D deficiency Surgical History cholecystectomy Hospitalization History No Hospitalization histo ry information [facility] JMEA Other Summary Purpose Family History No Family History Records Found Relationship Condition Age at Onset Recorded Date/T luis alfredo Not Specified Unknown Heart disease Unknown Advance Directives No Advanced Directives Records Found Advance Directive Response Recorded Date/ Time Advance Directives No February 20 019 1:53pm Chief Complaint and Reason for Visit Chief Complaint Right shoulder pain, s/p lifting heavy object M25.511 - Pain in right shoulder Additional Source Comments REASON FOR VISIT (unrecogniz ed section and content) INJURY TO RIGHT RING FINGER INFORMATION SOURCE (unrecogn ized section and content) DATE CREATED AUTHOR 05/06/2023 [facility] DATE CREATED AUTHOR 'S ORGANIZ ATION 02/28/2024 [facility] Care Teams (unrecognized sec tion and content) Team Status: Active Member Role Status Dates LORI Alvarez Primary Care Provider Active Team Status: Inactive Member Role Status Dates LORI Pat Attending Provider Active S tart: February 27, 2024 End: February 27, 2024 LORI Alvarez Primary Care Provider Active Start: February 27, 2024 End: February 27, 2024 Team Status: Active Member Role Status Dates LORI Pat Attending Provider Active S tart: February 27, 2024 LORI Alvarez Primary Care Provider Active Start: February 27, 2024 Goals (unrecognized section and content) Goals may be documented in a n alternate section FOR RECORDS PERTAINING TO PATIENTS WHO ARE OR HAVE BEEN ENROLLED IN A CHEMICAL DEPENDENCY/SUBSTANCEABUSE PROGRAM, SOME INFORMATION MAY BE OMITTED. This clinical summary was aggregated from multiple sources. Caution should be exercised in using it in the provision of clinical care. This summary normalizes information from multiple sources, and as a consequence, information in this document may materially change the coding, format and clinical context of patient data. In addition, data may be omitted in some cases. CLINICAL DECISIONS SHOULD BE BASED ON THE PRIMARY CLINICAL RECORDS. [facility]. provides no warranty or guarantee of the accuracy or completeness of information in this document.
--- NOTE | 2024-03-14 17:10 | XR_ITS ---
The [address] [address] Patient Name: NOEL ROCHE MRN: [id number] date: 1990 Sex: F Assigned Patient Location: ER Current Patient Location: ED.MAIN Accession/Order Number: [id number] Exam Date: 03/14/2024 17:25 Report Date: 03/14/2024 18:15 At the request of: MARCELL ANGELES Procedure: XR toe RT min 2V XR toe RT min 2V: HISTORY: right great toe, swelling right great toe, swelling COMPARISON: None available. TECHNIQUE: 3 views of the right first toe are submitted. FINDINGS: BONES/JOINT SPACES: There is no acute fracture or dislocation. The joint spaces are well-maintained. No bony erosive changes are present to suggest osteomyelitis. Incidental note is made of prominence of the sustentaculum vahid. SOFT TISSUES: There is soft tissue swelling of the first digit. XR/XR toe RT min 2V IMPRESSION: Soft tissue swelling without an acute fracture or radiographic evidence of osteomyelitis. Electronically authenticated by: LARISA OQUENDO Date: 03/14/2024 18:15
--- NOTE | 2024-03-14 17:12 | ED.GENADUL1 ---
HPI HPI - General Adult General Stated complaint: Lower Extremity Pain Time Seen by Provider: 03/14/24 16:52 Source: patient Mode of arrival: walk-in Limitations: no limitations History of Present Illness HPI narrative: Patient is a 33-year-old female who presents to the emergency department due to pain and swelling in the plantar aspect of her right great toe for the last 1 day. She states she was concerned because she is diabetic. There has been no redness, drainage or injury. She is not concerned for . No medications taken prior to arrival. Related Data Previous Rx's ?Medication ?Instructions ?Recorded cephalexin 500 mg capsule 500 mg PO Q8H 10 days #30 caps 03/14/24 ketorolac 10 mg tablet 10 mg PO TID PRN pain #10 tabs 03/14/24 Allergies Allergy/AdvReac Type Severity Reaction Status Date / Time Sulfa (Sulfonamide Allergy Severe Verified 03/14/24 16:57 Antibiotics) Opioid HPI Opioid Management Most Recent Opioid Data: Last Pain Scale 8 03/14/24 17:30 Last MAR Pain Assessment 03/14/24 17:30 Review of Systems ROS Constitutional Denies: fever or chills Ears, nose, mouth, and throat Denies: throat pain or nasal congestion Cardiovascular Denies: chest pain Respiratory Denies: shortness of breath or cough Gastrointestinal Denies: nausea or vomiting Musculoskeletal Reports: extremity pain Integumentary/Breast Denies: rash Hematologic/Lymphatic Denies: easy bruising or easy bleeding Exam Narrative Exam Narrative: Gen.: Awake, alert, in no distress Head: Normocephalic, atraumatic ENT: Moist mucous membranes Respiratory: No respiratory distress Extremities: Moves extremities equally, Plantar aspect of the right great toe is swollen at the fat pad of the distal phalanx. There is no redness, red streaking, open wounds or drainage. Plantar aspect of the toe is tender Psych: Normal mood and affect Neuro: No focal neuro deficit Skin: Warm, dry, intact Constitutional Vital Signs, click to edit/add: Last Vital Signs Temp 98.0 F 03/14/24 16:57 Pulse 77 03/14/24 16:57 Resp 18 03/14/24 16:57 BP 159/105 H 03/14/24 16:57 Pulse Ox 98 03/14/24 16:57 O2 Del Method Room Air 03/14/24 16:57 Course Vital Signs Vital signs: Vital Signs Temperature 98.0 F 03/14/24 16:57 Pulse Rate 77 03/14/24 16:57 Respiratory Rate 18 03/14/24 16:57 Blood Pressure 159/105 H 03/14/24 16:57 Pulse Oximetry 98 03/14/24 16:57 Oxygen Delivery Method Room Air 03/14/24 16:57 Temperature 98.0 F 03/14/24 16:57 Pulse Rate 77 03/14/24 16:57 Respiratory Rate 18 03/14/24 16:57 Blood Pressure 159/105 H 03/14/24 16:57 Pulse Oximetry 98 03/14/24 16:57 Oxygen Delivery Method Room Air 03/14/24 16:57 Medical Decision Making MDM Narrative Medical decision making narrative: Lab studies with minimal leukocytosis and slightly elevated CRP and sed rates. Uric acid is normal. Patient with stable vital signs in the ER. There is no significant evidence of wound infection at this time although the patient is a morbidly obese diabetic and will be started on antibiotics as a precaution. She is started on Keflex, anti-inflammatories for home for comfort. There is no evidence of injury, disproportionate swelling or neurovascular compromise at this time. Reevaluated by attending physician prior to discharge. Rest and elevate the toe, follow-up with podiatry and PCP. Return to the ER if symptoms change or worsen. Medical Records Medical records reviewed: Yes I reviewed the patient's medical records Lab Data Lab results reviewed: Yes I reviewed the patient's lab results Labs: Lab Results 03/14/24 Range/Units 17:20 WBC 12.5 H (4.0-11.0) 10^3/uL RBC 4.79 (4.20-5.40) 10^6/uL Hgb 12.1 (12.0-16.0) g/dL Hct 39.7 (36.0-48.0) % MCV 82.9 (81.0-99.0) fL MCH 25.3 L (26.7-34.0) pg MCHC 30.5 (29.9-35.2) g/dL RDW 14.6 (11.0-15.0) % Plt Count 380 (150-450) 10^3/uL MPV 9.7 (9.5-13.5) fL Neut % (Auto) 72.3 (43.0-75.0) % Lymph % (Auto) 18.5 L (20.5-60.0) % [place] % (Auto) 5.4 (1.7-12.0) % Eos % (Auto) 2.8 (0.9-7.0) % Baso % (Auto) 0.6 (0.2-2.0) % Neut # (Auto) 9.1 H (1.4-6.5) 10^3/uL Lymph # (Auto) 2.3 (1.2-3.8) 10^3/uL [place] # (Auto) 0.7 (0.3-0.8) 10^3/uL Eos # (Auto) 0.4 (0.0-0.7) 10^3/uL Baso # (Auto) 0.1 (0.0-0.1) 10^3/uL Abs Immat Gran (auto) 0.05 H (0.00-0.03) 10^3/uL Imm/Tot Granulo (auto) 0.4 (0.0-0.5) % ESR 89 H (<=20) mm/hr Sodium 140 (136-145) mmol/L Potassium 4.1 (3.5-5.1) mmol/L Chloride 102 (98-107) mmol/L Carbon Dioxide 28.9 (21.0-32.0) mmol/L Anion Gap 13.2 BUN 15.0 (7.0-18.0) mg/dL Creatinine 0.77 (0.55-1.02) mg/dL Est GFR ( Amer) >60 (>=60) Est GFR (Non-Af Amer) >60 (>=60) BUN/Creatinine Ratio 19.5 Glucose 80 (74-106) mg/dL Uric Acid 5.0 (2.6-6.0) mg/dL Calcium 9.1 (8.5-10.1) mg/dL C-Reactive Protein 3.26 H (<=0.50) mg/dL Serum HCG, Qual Negative (NEGATIVE) Imaging Data xr toe: Attestation: I have reviewed the pertinent imaging results. Discharge Plan Discharge Stand Alone Forms: Portal Instructions Clinical Impression: Pain of right great toe Patient Disposition: Home, Self-Care Time of Disposition Decision: 17:52 Condition: Good Prescriptions / Home Meds: New ketorolac 10 mg tablet 10 mg PO TID PRN (Reason: pain) Qty: 10 0RF cephalexin 500 mg capsule 500 mg PO Q8H 10 Days Qty: 30 0RF Print Language: Niuean Instructions: Musculoskeletal Pain (ED) Additional Instructions: Follow up with your doctor or pharmaceutical officer, elevate the foot Referrals: GUERRERO EMMANUEL [Primary Care Provider] - 1 week
[2024-03-14] MEDS: KETOROLAC TROMETHAMINE 10 MG TABLET PO (17:30)
[2024-03-14] MEDS: HYDROCODONE/ACET 5-325 MG TABLET 1 TAB PO (17:30)
[2024-03-14 17:33] LABS: Basophils Absolute Auto 0.1 10^3/uL (0.0-0.1); Basophils Percent Auto 0.6 % (0.2-2.0); Eosinophils Absolute Auto 0.4 10^3/uL (0.0-0.7); Eosinophils Percent Auto 2.8 % (0.9-7.0); Hematocrit 39.7 % (36.0-48.0); Hemoglobin 12.1 g/dL (12.0-16.0); Immature Granulocytes Abs Auto 0.05 10^3/uL (0.00-0.03); Immature Granulocytes Pct Auto 0.4 % (0.0-0.5); Lymphocytes Absolute Auto 2.3 10^3/uL (1.2-3.8); Lymphocytes Percent Auto 18.5 % (20.5-60.0); Mean Corpuscular HGB Conc 30.5 g/dL (29.9-35.2); Mean Corpuscular Hemoglobin 25.3 pg (26.7-34.0); Mean Corpuscular Volume 82.9 fL (81.0-99.0); Mean Platelet Volume 9.7 fL (9.5-13.5); Monocytes Absolute Auto 0.7 10^3/uL (0.3-0.8); Monocytes Percent Auto 5.4 % (1.7-12.0); Neutrophils Absolute Auto 9.1 10^3/uL (1.4-6.5); Neutrophils Percent Auto 72.3 % (43.0-75.0); Platelet Count 380 10^3/uL (150-450); Red Blood Count 4.79 10^6/uL (4.20-5.40); Red Cell Distribution Width 14.6 % (11.0-15.0); White Blood Count 12.5 10^3/uL (4.0-11.0)
[2024-03-14 17:40] LABS: Anion Gap 13.2; BUN Creatinine Ratio 19.5; C Reactive Protein 3.26 mg/dL (<=0.50); Calcium 9.1 mg/dL (8.5-10.1); Carbon Dioxide 28.9 mmol/L (21.0-32.0); Chloride 102 mmol/L (98-107); Estimated GFR (African America >60 (>=60); Estimated GFR (Non-African Ame >60 (>=60); Glucose 80 mg/dL (74-106); Potassium 4.1 mmol/L (3.5-5.1); Sodium 140 mmol/L (136-145)
[2024-03-14 17:41] LABS: Erythrocyte Sedimentation Rate 89 mm/hr (<=20)
[2024-03-14 17:49] LABS: HCG Qualitative NEGATIVE (NEGATIVE)
== END 2024-03-14 18:24 | disposition home or self-care (01) ==
PROVIDERS: Physician Assistant; Emergency Provider Emergency Medicine; PCP Nurse Practitioner Family
DX: M79.674 Pain in right toe(s) (principal); E11.9 Type 2 diabetes mellitus without complications; E66.01 Morbid (severe) obesity due to excess calories; Z68.43 Body mass index [BMI] 50.0-59.9, adult
CPT/HCPCS: 36415; 73660; 80048; 84550; 84703; 85025; 85652; 86140; 99284

== ENCOUNTER 2024-03-23 16:11 | Outpatient (RCR) | payer BC, SELFPAY | END 2024-04-02 16:09 | disposition home or self-care (01) | LOC: PT 16:11 | PROVIDERS: PCP Nurse Practitioner Family; Visit Provider Nurse Practitioner Family | DX: M25.511 Pain in right shoulder (principal) | CPT/HCPCS: 97010; 97014; 97110; 97140; 97162 ==

== ENCOUNTER 2024-05-03 09:24 | Outpatient (OUT) | payer BC, SELFPAY ==
--- NOTE | 2024-05-03 09:29 | MR_ITS ---
[address] [address] Patient Name: NOEL ROCHE MRN: [id number] date: 1990 Sex: F Assigned Patient Location: MRI Current Patient Location: MRI Accession/Order Number: [id number] Exam Date: 05/03/2024 09:51 Report Date: 05/03/2024 11:17 At the request of: WESTLEY NEWTON Procedure: MR shoulder RT wo con EXAMINATION: MR shoulder RT wo con HISTORY: Pain joint, shoulder, right M25.511 ; right shoulder pain and limited range of motion since lifting heavy object 3 months ago COMPARISON: XR shoulder right 02/27/2024 TECHNIQUE: A variety of imaging planes and parameters were utilized for visualization of suspected pathology. Imaging was performed without or with contrast as indicated by examination type. FINDINGS: ROTATOR CUFF REGION CUFF TENDONS: Full-thickness T2 increased signal intensity in the supraspinatus tendon indicates tendon degeneration and/or tendinitis. No zuleika tear is seen. CUFF MUSCLES: Normal appearing muscles. DELTOID: Normal. No significant atrophy or tear. LONG BICEPS TENDON: Normal. No abnormal signal, attrition, or tear. LABRUM/BICEPS ANCHOR SUPERIOR: Normal. No visible labral tear or biceps anchor pathology. ANTERIOR/INFERIOR: Normal. No visible tear or attrition. POSTERIOR: Normal. No posterior labrum abnormality. CAPSULE Normal. No visible capsular laxity or thickening. 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 AC LIGAMENTS: Normal acromioclavicular ligament. CC LIGAMENTS: Normal coracoclavicular ligaments. ACROMION: Normal horizontal (Type I) configuration. SUBACROMIAL BURSA: Normal. No significant effusion. HYALINE CARTILAGE: Normal. No visible cartilage narrowing or focal defect. OTHER BONES: Normal proximal humerus, glenoid, and coracoid. OTHER OBSERVATIONS: Negative. No other significant findings or glenohumeral effusion. MR/MR shoulder RT wo con IMPRESSION: 1. Slightly limited examination due to patient body habitus and motion artifact. 2. Moderate-marked tendinitis/tendinopathy of the supraspinatus tendon. No convincing full-thickness tear. 3. Mild/moderate degenerative changes of acromioclavicular joint. Electronically authenticated by: WESTLEY JHA Date: 05/03/2024 11:17
--- OUTSIDE RECORDS SUMMARY | 2024-05-03 09:41 | XMS_ITS | CCD ---
Author Organization [facility] Care Team Providers Care Drier Operator Head Name Role Phone Monique Dudley Unavailable MONIQUE EMMANUEL Attending Unavailable LIEN, MONIQUE Primary Care Unavailable LIEN, MOINQUE Admitting Unavailable LIEN, MONIQUE Admitting Unavailable LIEN, [...] Attending Unavailable LIEN, MONIQUE Primary Care Unavailable YUDELKA, DR WESTLEY Cabral Consulting Unavailable TIA ., DR COPPOLA Admitting Unavailable REQUEST, NONE LISTED Primary Care Unavaila ble TIA Bonds, DR COPPOLA Attending Unavailable BRIDGETTE ., SUNIL FAITH Consulting Unavailsandra Dudley NP-C Monique Attending Provider [phone] LORI Emmanuel Primary Care Provider Monique Dudley Attending Unavailable Monique Dudley Admitting Unavailable Lien, Monique Alicia Primary Care Unavailable PATO KOEHLER Attending Unavailable PATO KOEHLER Attending Unavailable MONIQUE EMMANUEL Primary Care Physician Pato Koehler Referring Unavailable Pato Koehler Attending Unavailable Pato Koehler Admitting Unavailable Pato Koehler Referring Unavailable Pato Koehler Attending Unavailable Pato Koehler Admitting Unavailable Allergies Allergy Classification Reported Allergen(s) Allergy Type Date of Onset Reaction(s) Facility (1 source) Egg protein Drug allergy [facility] Other (1 source) Sulf-10 Drug allergy [facility] Other (1 source) Sulfonamides (Antibiotic) Drug allergy (disorder) 3 [facility] (3 sources) Sulfonamides (Antibiotic); Translations: [Sulfa (Sulfonamide Antibiotics)] Allergy to substance 4 [facility] (3 sources) Egg Derived; Translations: [Egg Derived] Allergy to substance 4 [facility] (2 sources) Sulfonamides (Antibiotic); Translations: [sulfa drugs] Drug allergy [facility] Medications Current Medications Medication Drug Class(es) Dates Sig (Normalized) Sig (Original) cholecalciferol 0.125 mg oral tablet (2 sources) Vitamin D Start: 02-27-2024 take 125 ug by mouth once daily Cholecalciferol (Vitamin D3) Active 125 MCG PO Daily February 27, 2024 12:00am escitalopram 20 mg oral tablet (1 source) Serotonin Reuptake Inhibitor Start: 04-25-2024 take 1 tablet by mouth once daily Lexapro 20 mg Tab 20 mg = 1 tab(s), Oral, Daily, Refills(s) 0, Anxiety Start Date: 04/25/24 Status: Ordered metFORMIN hydrochloride 500 mg oral tablet (3 sources) Biguanide Start: 04-25-2024 take 1 tablet by mouth once daily metformin 500 mg Tab 500 mg = 1 tab(s), Oral, Daily, Refills(s) 0 Start Date: 04/25/24 Status: Ordered Start: 02-27-2024 take 500 mg by mouth twice tahir ly Metformin Active 500 MG PO Twice daily February 27, 2024 12:00am omeprazole 20 mg delayed release oral capsule (3 sources) Proton Pump Inhibitor Start: 04-25-2024 omeprazo le 20 mg Cap-DR 20 mg = 1 cap(s), Oral, Daily, Refills(s) 0, Control of stomach acid Start Date: 04/25/24 Status: Ordered Start: 02-27-2024 take 20 mg by mouth once daily Omeprazole Active 20 MG PO Daily February 27, 2024 12:00am traZODone hydrochloride 50 mg oral tablet (1 source) Serotonin Reuptake Inhibitor Start: 04-25-2024 take 2 tablets by mouth at bedtime traZODONE 50 mg Tab 100 mg = 2 tab(s), Oral, Bedtime, Refills(s) 0, Sleep Start Date: 04/25/24 Status: Ordered [place] Sling (2 sources) Start: 02-27-2024 [place] Slin g Active 0 .Route 1 February 27, 2024 12:00am As directed Vitamin D (1 source) Start: 04-25-2024 Vitamin D Oral , Daily, Refills(s) 0, Prophylaxis Start Date: 04/25/24 Status: Ordered Problems Active Problems Problem Classification Problem Date Documented Date Episodic/Chronic Anxiety disorders (1 source) Anxiety 04-25-2024 Chronic Diabetes mellitus without complication (6 sources) Type 2 diabetes mellitus without complications; Translations: [Diabetes mellitus] Onset: 08-25-2022 Chronic Disorders of lipid metabolism (4 sources) Pure hyperglyceridemia; Translations: [PURE HYPERGLYCERIDEMIA] Onset: 11-15-2022 Chronic Esophageal disorders (1 source) Gastroesophageal reflux disease 04-25-2024 Chronic Nutritional deficiencies (2 sources) Vitamin D deficiency, unspecified; Translations: [Vitamin D deficiency] Onset: 08-19-2022 04-25-2024 Chronic Other non-traumatic joint disorders (1 source) Pain in right shoulder; Translations: [Pain in right shoulder] Onset: 02-27-2024 Episodic Other upper respiratory disease (1 source) Allergic rhinitis due to pollen; Translations: [Allergic rhinitis due to pollen] Chronic Other upper respiratory infections (4 sources) Chronic sinusitis, unspecified; Translations: [CHRONIC SINUSITIS UNSPECIFIED] Onset: 01-05-2023 Chronic Pancreatic disorders (not diabetes) (1 source) Pancreatitis 02-08-2014 Episodic Unclassified (1 source) CONTACT W/AND (SUSP) EXPOS [...] Test Name Value Interpretation Reference Range Facility CBC w/ Auto Diffon 4 Basophils/100 WBC (Bld) 0.5 % Normal 0.0-2.0 [facility] Comment on above: Performed By: #### 2 [id number] #### [facility] [address] [place] [address] Basophils/Leukocytes Auto (Bld) [Pure # fraction] 0.1 E9/L Normal 0.0-0.2 [facility] Comment on above: Performed By: #### 2 [id number] #### [facility] [address] [place] [address] Eosinophils (Bld) [#/Vol] 0.3 E9/L Normal 0.0-0.5 [facility] Comment on above: Performed By: #### 2 [id number] #### [facility] [address] [place] [address] Eosinophils/100 WBC (Bld) 2.9 % Normal 0.0-8.0 [facility] Comment on above: Performed By: #### 2 [id number] #### [facility] [address] [place] [address] Erythrocyte distribution width (RBC) [Ratio] 15.6 % High 10.9-14.2 [facility] Comment on above: Performed By: #### 2 [id number] #### [facility] [address] [place] [address] Hematocrit (Bld) [Volume fraction] 39.9 % Normal 34.0-46.0 [facility] Comment on above: Performed By: #### 2 [id number] #### [facility] [address] [place] [address] Hemoglobin (Bld) [Mass/Vol] 12.8 g/dL Normal 12.0-16.0 [facility] Comment on above: Performed By: #### 2 [id number] #### [facility] [address] [place] [address] Lymphocytes (Bld) [#/Vol] 2.3 E9/L Normal 1.0-4.0 [facility] Comment on above: Performed By: #### 2 [id number] #### [facility] [address] [place] [address] Lymphocytes/100 WBC (Bld) 20.9 % Normal 14.0-50.0 [facility] Comment on above: Performed By: #### 2 [id number] #### [facility] [address] [place] [address] MCH (RBC) [Entitic mass] 25.4 pg Low 27.0-34.0 [facility] Comment on above: Performed By: #### 2 [id number] #### [facility] [address] [place] [address] MCHC (RBC) [Mass/Vol] 32.2 g/dL Normal 31.4-36.0 [facility] Comment on above: Performed By: #### 2 [id number] #### [facility] [address] [place] [address] MCV (RBC) [Entitic vol] 79.0 fL Low 80.0-100.0 [facility] Comment on above: Performed By: #### 2 [id number] #### [facility] [address] [place] [address] Monocytes (Bld) [#/Vol] 0.7 E9/L Normal 0.2-1.0 [facility] Comment on above: Performed By: #### 2 [id number] #### [facility] [address] [place] [address] Neutrophils (Bld) [#/Vol] 7.7 E9/L High 2.0-7.5 [facility] Comment on above: Performed By: #### 2 [id number] #### [facility] [address] [place] [address] Neutrophils/100 WBC (Bld) 69.3 % Normal 36.0-75.0 [facility] Comment on above: Performed By: #### 2 [id number] #### [facility] [address] [place] [address] Platelet mean volume (Bld) [Entitic vol] 8.3 fL Normal 6.4-10.8 [facility] Comment on above: Performed By: #### 2 [id number] #### [facility] [address] [place] [address] Platelets (Bld) [#/Vol] 346.0 E9/L Normal 150.0-500.0 [facility] Comment on above: Performed By: #### 2 [id number] #### [facility] [address] [place] [address] RBC (Bld) [#/Vol] 5.1 E12/L Normal 4.3-5.9 [facility] Comment on above: Performed By: #### 2 [id number] #### [facility] [address] [place] [address] WBC corrected for nucl RBC Auto (Bld) [#/Vol] 11.1 E9/L High 4.0-11.0 [facility] Comment on above: Performed By: #### 2 [id number] #### [facility] [address] [place] [address] Consent for Treatmenton 03-29 Consent for Treatment [id number] .[id number] Normal [facility] HEMATOLOGYOrdered By: SYSTEM SYSTEM on 04-25-2024 Basophils/100 WBC (Bld) 0.5 % Normal 0.0 - 2.0 % [facility]e Basophils/Leukocytes Auto (Bld) [Pure # fraction] 0.1 E9/L Normal 0.0 - 0.2 E9/L [facility] Eosinophils (Bld) [#/Vol] 0.3 E9/L Normal 0.0 - 0.5 E9/L [facility] Eosinophils/100 WBC (Bld) 2.9 % Normal 0.0 - 8.0 % [facility] Erythrocyte distribution width (RBC) [Ratio] 15.6 % High 10.9 - 14.2 % [facility] Hematocrit (Bld) [Volume fraction] 39.9 % Normal 34.0 - 46.0 % [facility] Hemoglobin (Bld) [Mass/Vol] 12.8 g/dL Normal 12.0 - 16.0 gm/dL [facility] Lymphocytes (Bld) [#/Vol] 2.3 E9/L Normal 1.0 - 4.0 E9/L [facility] Lymphocytes/100 WBC (Bld) 20.9 % Normal 14.0 - 50.0 % [facility] MCH (RBC) [Entitic mass] 25.4 pg Low 27.0 - 34.0 pg [facility] MCHC (RBC) [Mass/Vol] 32.2 g/dL Normal 31.4 - 36.0 gm/dL [facility] MCV (RBC) [Entitic vol] 79.0 fL Low 80.0 - 100.0 fL [facility] Monocytes (Bld) [#/Vol] 0.7 E9/L Normal 0.2 - 1.0 E9/L [facility] Monocytes/100 WBC (Bld) 6.4 % Normal 4.0 - 14.0 % [facility] Neutrophils (Bld) [#/Vol] 7.7 E9/L High 2.0 - 7.5 E9/L [facility] Neutrophils/100 WBC (Bld) 69.3 % Normal 36.0 - 75.0 % [facility] Platelet mean volume (Bld) [Entitic vol] 8.3 fL Normal 6.4 - 10.8 fL [facility] Platelets (Bld) [#/Vol] 346.0 E9/L Normal 150.0 - 500.0 E9/L [facility] RBC (Bld) [#/Vol] 5.1 E12/L Normal 4.3 - 5.9 E12/L [facility] WBC corrected for nucl RBC Auto (Bld) [#/Vol] 11.1 E9/L High 4.0 - 11.0 E9/L [facility] Physician Orderon 04-18-2024 Physician Order [id number] .00TIFF Normal [facility] XR shoulder RT min 2V*on XR shoulder RT min 2V* [facility] [place] [address] [place] [address] XRay Report Signed Patient: Noel Paul MR#: [id number] : 1990 Acct:[id number] Age/Sex: 33 / F ADM Date: 02/27/24 Loc: [facility] Room: Type: [facility] Attending Dr: Monique SANDOVAL Copies [...] Leisa Adames M.D.02/27/2024 6:14 PM Dictation Location: [place] [address] Transcribed By: [facility] 02/27/241813 Dictated By: Leisa Adames MD 02/27/241812 Signed By: 02/27/241813 Normal [facility] GLYCOHEMOGLOBIN A1Con 2022 ADA RECOMMENDATION SEE BELOW Normal [facility] Comment on above: Result Comment: ADA RECOMMENDED LIMIT 4.0 - 6.0 ADA THERAPEUTIC TARGET < 7.0 ACTION SUGGESTED > 7.0 Performed By: #### A 1C #### [facility] [address] [place] [address] Dr. Benito Dupree Glucose [Mass/Vol] 105 mg/dL Normal [facility] Comment on above: Performed By: #### A 1C #### [facility] [address] [place] [address] Dr. Benito Dupree HbA1c (Bld) [Mass fraction] 5.3 % Normal 4.5-6.2 [facility] Comment on above: Performed By: #### A 1C #### [facility] [address] [place] [address] Dr. Benito Dupree Covid-19 PCR (CVDTB)on SARS-CoV-2 (COVID-19) RNA MUKUND+probe Ql (Unsp spec) Not detected Normal NOT DETECTED [facility] Comment on above: Result Comment: This test is not yet approved or cleared by the [place] FDA. When there are no FDA-approved or cleared tests available, and other criteria are met, FDA can make tests available under an emergency access mechanism called an Emergency Use Authorization (EUA). The EUA for this test is supported by the [place] of Health and Human Service's (HHS's) declaration [...] SARS-CoV-2. Performed By: #### C VDTBH #### [facility] [address] [place] [address] Dr. Benito Dupree INFLUENZA A AND B AGon 01-05 INFLUANEGH SEE BELOW Normal [facility] Comment on above: Result Comment: Nega tive for Flu A protein angiten. Infection due to Flu A cannot be ruled out. Flu A angiten in the sample may be below the detection limit of the test. Performed By: #### I NFLUAB #### [facility] [address] [place] [address] Dr. Benito Dupree INFLUBNEGH SEE BELOW Normal [facility] Comment on above: Result Comment: Nega tive for Flu B protein antigen. Infection due to Flu B cannot be ruled out. Flu B antigen in the sample may be below the detection limit of the test. Performed By: #### I NFLUAB #### [facility] [address] [place] [address] Dr. Benito Dupree INFLUENZA A AG Negative Normal NEGATIVE SEE COMMENT [facility] Comment on above: Performed By: #### I NFLUAB #### [facility] [address] [place] [address] Dr. Benito Dupree INFLUENZA B AG Negative Normal NEGATIVE SEE COMMENT [facility] Comment on above: Performed By: #### I NFLUAB #### [facility] [address] [place] [address] Dr. Benito Dupree GLYCOHEMOGLOBIN A1Con 2021 ADA RECOMMENDATION SEE BELOW Normal [facility] Comment on above: Result Comment: ADA RECOMMENDED LIMIT 4.0 - 6.0 ADA THERAPEUTIC TARGET < 7.0 ACTION SUGGESTED > 7.0 Performed By: #### A 1C #### [facility] [address] [place] [address] Dr. Benito Dupree Glucose [Mass/Vol] 143 mg/dL Normal [facility] Comment on above: Performed By: #### A 1C #### [facility] [address] [place] [address] Dr. Benito Dupree HbA1c (Bld) [Mass fraction] 6.6 % Critically high 4.5-6.2 [facility] Comment on above: Performed By: #### A 1C #### [facility] [address] [place] [address] Dr. Benito Dupree LIPID PROFILEon 11-15-2022 CHOL-HDL RATIO NORM SEE BELOW Normal [facility] Comment on above: Result Comment: 3.3 - 4.4 LOW RISK 4.4 - 7.1 AVERAGE RISK 7.1 - 11.0 MODERATE RISK >11.0 HIGH RISK Performed By: #### I NFLUAB #### [facility] [address] [place] [address] [address] Benito Dupree Cholesterol [Mass/Vol] 154 mg/dL Normal <=200 [facility] Comment on above: Performed By: #### I NFLUAB #### [facility] [address] [place] [address] [address] Benito Dupree Cholesterol in HDL [Mass/Vol] 29 mg/dL Critically low 40-60 [facility] Comment on above: Performed By: #### I NFLUAB #### [facility] [address] [place] [address] [address] Benito Dupree Cholesterol in LDL [Mass/Vol] 98.2 mg/dL Normal [facility] Comment on above: Performed By: #### I NFLUAB #### [facility] [address] [place] [address] [address] Benito Dupree Cholesterol.total/Cho lesterol in HDL [Mass ratio] 5.3 {ratio} Normal [facility] Comment on above: Performed By: #### I NFLUAB #### [facility] [address] [place] [address] [address] Benito Dupree HDL NORMAL > or = 60 mg/dl - LO W CARDIOVASCULAR RISK <40 mg/dl - HIGH CARDIOVASCULAR RISK Normal [facility] Comment on above: Performed By: #### I NFLUAB #### [facility] [address] [place] [address] [address] Benito Dupree LDL CALC NORMAL SEE BELOW Normal [facility] Comment on above: Result Comment: <100 mg/dl OPTIMAL 100 - 129 mg/dl NEAR OR ABOVE OPTIMAL 130 - 159 mg/dl BORDERLINE HIGH 160 - 189 mg/dl HIGH >190 mg/dl VERY HIGH Performed By: #### I NFLUAB #### [facility] [address] [place] [address] [address] Benito Dupree Triglyceride [Mass/Vol] 134 mg/dL Normal <=150 [facility] Comment on above: Performed By: #### I NFLUAB #### [facility] [address] [place] [address] Dr. Benito Dupree VLDL CALC 26.8 mg/dL Normal [facility] Comment on above: Performed By: #### I NFLUAB #### [facility] [address] [place] [address] Dr. Benito Dupree INSULINon 08-19-2022 Insulin 24.3 uIU/mL Normal 2.6-24.9 [facility] Comment on above: Performed By: #### I NFLUAB #### [facility] [address] [place] [address] Dr. Benito Dupree T4, T3U, FTI LABCORPon 08-19 Free Thyroxine Index 2.6 Normal 1.2-4.9 [facility] Comment on above: Performed By: #### T HYLC #### [facility] [address] [place] [address] Dr. Benito Dupree T3 Uptake 29 % Normal 24-39 [facility] Comment on above: Performed By: #### T HYLC #### [facility] [address] [place] [address] Dr. Benito Dupree T4 [Mass/Vol] 8.8 ug/dL Normal 4.5-12.0 [facility] Comment on above: Performed By: #### T HYLC #### [facility] [address] [place] [address] Dr. Benito Dupree CBC AUTO DIFFon 08-18-2022 BASO # 0.1 103/ul Normal 0.0-0.1 [facility] Comment on above: Performed By: #### I NFLUAB #### [facility] [address] [place] [address] Dr. Benito Dupree Basophils/100 WBC (Bld) 0.8 % Normal 0.2-2.0 [facility] Comment on above: Performed By: #### I NFLUAB #### [facility] [address] [place] [address] Dr. Benito Dupree EO # 0.3 103/ul Normal 0.0-0.7 [facility] Comment on above: Performed By: #### I NFLUAB #### [facility] [address] [place] [address] Dr. Benito Dupree Eosinophils/100 WBC (Bld) 2.8 % Normal 0.9-7.0 [facility] Comment on above: Performed By: #### I NFLUAB #### [facility] [address] [place] [address] Dr. Benito Dupree Erythrocyte distribution width (RBC) [Ratio] 15.4 % Critically high 11.0-15.0 [facility] Comment on above: Performed By: #### I NFLUAB #### [facility] [address] [place] [address] Dr. Benito Dupree Hematocrit (Bld) [Volume fraction] 43.7 % Normal 36.0-48.0 [facility] Comment on above: Performed By: #### I NFLUAB #### [facility] [address] [place] [address] Dr. Benito Dupree Hemoglobin (Bld) [Mass/Vol] 14.2 g/dL Normal 12.0-16.0 [facility] Comment on above: Performed By: #### I NFLUAB #### [facility] [address] [place] [address] Dr. Benito Dupree IG # 0.08 10e3/ul Critically high 0.00-0.03 [facility] Comment on above: Performed By: #### I NFLUAB #### [facility] [address] [place] [address] Dr. Benito Dupree IG % 0.9 % Critically high 0.0-0.5 [facility] Comment on above: Performed By: #### I NFLUAB #### [facility] [address] [place] [address] Dr. Benito Dupree LYMPH # 2.3 103/ul Normal 1.2-3.8 [facility] Comment on above: Performed By: #### I NFLUAB #### [facility] [address] [place] [address] Dr. Benito Dupree Lymphocytes/100 WBC (Bld) 24.3 % Normal 20.5-60.0 [facility] Comment on above: Performed By: #### I NFLUAB #### [facility] [address] [place] [address] Dr. Benito Dupree MANUAL DIFF REQ NO Normal [facility] Comment on above: Performed By: #### I NFLUAB #### [facility] [address] [place] [address] Dr. Benito Dupree MCH (RBC) [Entitic mass] 26.1 pg Critically low 26.7-34.0 [facility] Comment on above: Performed By: #### I NFLUAB #### [facility] [address] [place] [address] Dr. Benito Dupree MCHC (RBC) [Mass/Vol] 32.5 g/dL Normal 29.9-35.2 [facility] Comment on above: Performed By: #### I NFLUAB #### [facility] [address] [place] [address] Dr. Benito Dupree MCV (RBC) [Entitic vol] 80.2 fL Critically low 81.0-99.0 [facility] Comment on above: Performed By: #### I NFLUAB #### [facility] [address] [place] [address] Dr. Benito Dupree MONO # 0.5 103/ul Normal 0.3-0.8 [facility] Comment on above: Performed By: #### I NFLUAB #### [facility] [address] [place] [address] Dr. Benito Dupree Monocytes/100 WBC (Bld) 5.2 % Normal 1.7-12.0 [facility] Comment on above: Performed By: #### I NFLUAB #### [facility] [address] [place] [address] Dr. Benito Dupree NEUT # 6.1 103/ul Normal 1.4-6.5 [facility] Comment on above: Performed By: #### I NFLUAB #### [facility] [address] [place] [address] [address] Benito Dupree Neutrophils/100 WBC (Bld) 66.0 % Normal 43.0-75.0 [facility] Comment on above: Performed By: #### I NFLUAB #### [facility] [address] [place] [address] [address] Benito Dupree Platelet mean volume (Bld) [Entitic vol] 9.9 fL Normal 9.5-13.5 [facility] Comment on above: Performed By: #### I NFLUAB #### [facility] [address] [place] [address] [address] Benito Dupree PLT 291 103/ul Normal 150-450 [facility] Comment on above: Performed By: #### I NFLUAB #### [facility] [address] [place] [address] [address] Benito Dupree RBC 5.45 106/ul Critically high 4.20-5.40 [facility] Comment on above: Performed By: #### I NFLUAB #### [facility] [address] [place] [address] [address] Benito Dupree WBC 9.3 103/ul Normal 4.0-11.0 [facility] Comment on above: Performed By: #### I NFLUAB #### [facility] [address] [place] [address] [address] Benito Dupree DIRECT LDLon 08-18-2022 Cholesterol in LDL [Mass/Vol] 50 mg/dL Normal [facility] Comment on above: Performed By: #### T HYLC #### [facility] [address] [place] [address] [address] Benito Dupree DLDL NORMAL SEE BELOW Normal [facility] Comment on above: Result Comment: <100 mg/dl OPTIMAL 100 - 129 mg/dl NEAR OR ABOVE OPTIMAL 130 - 159 mg/dl BORDERLINE HIGH 160 - 189 mg/dl HIGH >190 mg/dl VERY HIGH Performed By: #### T HYLC #### [facility] [address] [place] [address] [address] Benito Dupree GLYCOHEMOGLOBIN A1Con 2021 ADA RECOMMENDATION SEE BELOW Normal [facility] Comment on above: Result Comment: ADA RECOMMENDED LIMIT 4.0 - 6.0 ADA THERAPEUTIC TARGET < 7.0 ACTION SUGGESTED > 7.0 Performed By: #### A 1C #### [facility] [address] [place] [address] Dr. Benito Dupree Glucose [Mass/Vol] 332 mg/dL Normal [facility] Comment on above: Performed By: #### A 1C #### [facility] [address] [place] [address] [address] Benito Dupree HbA1c (Bld) [Mass fraction] 13.2 % Critically high 4.5-6.2 [facility] Comment on above: Performed By: #### A 1C #### [facility] [address] [place] [address] Dr. Benito Dupree IRONon 08-18-2022 Iron [Mass/Vol] 53.0 ug/dL Normal 50.0-170.0 [facility] Comment on above: Performed By: #### I NFLUAB #### [facility] [address] [place] [address] Dr. Benito Dupree LIPID PROFILEon 08-18-2022 CHOL-HDL RATIO NORM SEE BELOW Normal [facility] Comment on above: Result Comment: 3.3 - 4.4 LOW RISK 4.4 - 7.1 AVERAGE RISK 7.1 - 11.0 MODERATE RISK >11.0 HIGH RISK Performed By: #### T HYLC #### [facility] [address] [place] [address] Dr. Benito Dupree Cholesterol [Mass/Vol] 260 mg/dL Critically high <=200 [facility] Comment on above: Performed By: #### T HYLC #### [facility] [facility] [address] [place] [address] Dr. Benito Dupree Cholesterol in HDL [Mass/Vol] 23 mg/dL Critically low 40-60 [facility] Comment on above: Performed By: #### T HYLC #### [facility] [address] [place] [address] Dr. Benito Dupree Cholesterol.total/Cho lesterol in HDL [Mass ratio] 11.3 {ratio} Normal [facility] Comment on above: Performed By: #### T HYLC #### [facility] [address] [place] [address] Dr. Benito Dupree HDL NORMAL > or = 60 mg/dl - LO W CARDIOVASCULAR RISK <40 mg/dl - HIGH CARDIOVASCULAR RISK Normal [facility] Comment on above: Performed By: #### T HYLC #### [facility] [address] [place] [address] Dr. Benito Dupree Triglyceride [Mass/Vol] 1711 mg/dL Critically high <=150 [facility] Comment on above: Performed By: #### T HYLC #### [facility] [address] [place] [address] Dr. Benito Dupree VLDL CALC 342.2 mg/dL Normal [facility] Comment on above: Performed By: #### T HYLC #### [facility] [address] [place] [address] Dr. Benito Dupree PROF 14(COMP METB)on 022 Albumin [Mass/Vol] 3.2 g/dL Critically low 3.4-5.0 [facility] Comment on above: Performed By: #### T HYLC #### [facility] [address] [place] [address] Dr. Benito Dupree Albumin/Globulin [Mass ratio] 0.7 {ratio} Normal [facility] Comment on above: Performed By: #### T HYLC #### [facility] [address] [place] [address] Dr. Benito Dupree ALP [Catalytic activity/Vol] 92 U/L Normal 46-116 [facility] Comment on above: Performed By: #### T HYLC #### [facility] [address] [place] [address] Dr. Benito Dupree ALT [Catalytic activity/Vol] 41 U/L Normal 14-59 [facility] Comment on above: Performed By: #### T HYLC #### [facility] [address] [place] [address] Dr. Benito Dupree Anion gap [Moles/Vol] 14.1 mmol/L Normal [facility] Comment on above: Performed By: #### T HYLC #### [facility] [address] [place] [address] Dr. Benito Dupree AST [Catalytic activity/Vol] 16 U/L Normal 15-37 [facility] Comment on above: Performed By: #### T HYLC #### [facility] [address] [place] [address] Dr. Benito Dupree Bilirubin [Mass/Vol] 0.9 mg/dL Normal 0.2-1.0 [facility] Comment on above: Performed By: #### T HYLC #### [facility] [address] [place] [address] Dr. Benito Dupree Calcium [Mass/Vol] 9.1 mg/dL Normal 8.5-10.1 [facility] Comment on above: Performed By: #### T HYLC #### [facility] [address] [place] [address] Dr. Benito Dupree Chloride [Moles/Vol] 97 mmol/L Critically low 98-107 [facility] Comment on above: Performed By: #### T HYLC #### [facility] [address] [place] [address] Dr. Benito Dupree CO2 [Moles/Vol] 24.9 mmol/L Normal 21.0-32.0 [facility] Comment on above: Performed By: #### T HYLC #### [facility] [address] [place] [address] Dr. Benito Dupree Creatinine [Mass/Vol] 0.67 mg/dL Normal 0.55-1.02 [facility] Comment on above: Performed By: #### T HYLC #### [facility] [address] [place] [address] Dr. Benito Dupree EGFR-AF SINGAPOREAN >60 Normal >=60 [facility] Comment on above: Performed By: #### T HYLC #### [facility] [address] [place] [address] Dr. Benito Dupree EGFR-NON AF SINGAPOREAN >60 Normal >=60 [facility] Comment on above: Performed By: #### T HYLC #### [facility] [address] [address] [address] Benito Dupree Globulin (S) [Mass/Vol] 4.6 g/dL Normal [facility] Comment on above: Performed By: #### T HYLC #### [facility] [address] [address] [address] Benito Dupree Glucose [Mass/Vol] 402 mg/dL Critically high 74-106 [facility] Comment on above: Performed By: #### T HYLC #### [facility] [address] [address] [address] Benito Dupree Potassium [Moles/Vol] 4.0 mmol/L Normal 3.5-5.1 [facility] Comment on above: Performed By: #### T HYLC #### [facility] [address] [address] [address] Benito Dupree Protein [Mass/Vol] 7.8 g/dL Normal 6.4-8.2 [facility] Comment on above: Performed By: #### T HYLC #### [facility] [address] [address] [address] Benito Dupree Sodium [Moles/Vol] 132 mmol/L Critically low 136-145 [facility] Comment on above: Performed By: #### T HYLC #### [facility] [address] [address] [address] Benito Dupree Urea nitrogen [Mass/Vol] 10.0 mg/dL Normal 7.0-18.0 [facility] Comment on above: Performed By: #### T HYLC #### [facility] [address] [address] [address] Benito Dupree Urea nitrogen/Creatinine [Mass ratio] 14.9 mg/mg Normal [facility] Comment on above: Performed By: #### T HYLC #### [facility] [address] [address] [address] Benito Dupree TSHon 08-18-2022 TSH 3.676 uIU/mL Normal 0.358-3.740 [facility] Comment on above: Performed By: #### T HYLC #### [facility] [address] [place] [address] Dr. Benito Dupree VITAMIN D 25 OHon 08-18-2022 VIT D 25-OH 13.9 ng/mL Normal [facility] Comment on above: Performed By: #### I NFLUAB #### [facility] [address] [place] [address] Dr. Benito Dupree VIT D RANGES SEE BELOW Normal [facility] Comment on above: Result Comment: <20 ng/mL Vit D deficient 20 - <30 ng/mL Vit D insufficient 30 - 100 ng/mL Vit D sufficient >100 ng/mL Potential Toxicity Performed By: #### I NFLUAB #### [facility] [address] [place] [address] Dr. Benito Dupree AMYLASEon 06-01-2022 Amylase [Catalytic activity/Vol] 29 U/L Normal 25-115 [facility] Comment on above: Performed By: #### I NFLUAB #### [facility] [address] [place] [address] Dr. Benito Dupree CBC AUTO DIFFon 06-01-2022 BASO # 0.1 103/ul Normal 0.0-0.1 [facility] Comment on above: Performed By: #### I NFLUAB #### [facility] [address] [place] [address] Dr. Benito Dupree Basophils/100 WBC (Bld) 0.5 % Normal 0.2-2.0 [facility] Comment on above: Performed By: #### I NFLUAB #### [facility] [address] [place] [address] Dr. Benito Dupree EO # 0.3 103/ul Normal 0.0-0.7 [facility] Comment on above: Performed By: #### I NFLUAB #### [facility] [address] [place] [address] Dr. Benito Dupree Eosinophils/100 WBC (Bld) 2.0 % Normal 0.9-7.0 [facility] Comment on above: Performed By: #### I NFLUAB #### [facility] [address] [address] [address] Benito Dupree Erythrocyte distribution width (RBC) [Ratio] 15.3 % Critically high 11.0-15.0 [facility] Comment on above: Performed By: #### I NFLUAB #### [facility] [address] [place] [address] Dr. Benito Dupree Hematocrit (Bld) [Volume fraction] 41.5 % Normal 36.0-48.0 [facility] Comment on above: Performed By: #### I NFLUAB #### [facility] [address] [place] [address] Dr. Benito Dupree Hemoglobin (Bld) [Mass/Vol] 12.7 g/dL Normal 12.0-16.0 [facility] Comment on above: Performed By: #### I NFLUAB #### [facility] [address] [place] [address] Dr. Benito Dupree IG # 0.06 10e3/ul Critically high 0.00-0.03 [facility] Comment on above: Performed By: #### I NFLUAB #### [facility] [address] [place] [address] Dr. Benito Dupree IG % 0.4 % Normal 0.0-0.5 [facility] Comment on above: Performed By: #### I NFLUAB #### [facility] [address] [place] [address] Dr. Benito Dupree LYMPH # 1.9 103/ul Normal 1.2-3.8 [facility] Comment on above: Performed By: #### I NFLUAB #### [facility] [address] [place] [address] Dr. Benito Dupree Lymphocytes/100 WBC (Bld) 13.9 % Critically low 20.5-60.0 [facility] Comment on above: Performed By: #### I NFLUAB #### [facility] [address] [place] [address] Dr. Benito Dupree MANUAL DIFF REQ NO Normal [facility] Comment on above: Performed By: #### I NFLUAB #### [facility] [address] [address] [address] Benito Dupree MCH (RBC) [Entitic mass] 24.7 pg Critically low 26.7-34.0 [facility] Comment on above: Performed By: #### I NFLUAB #### [facility] [address] [place] [address] Dr. Benito Dupere MCHC (RBC) [Mass/Vol] 30.6 g/dL Normal 29.9-35.2 [facility] Comment on above: Performed By: #### I NFLUAB #### [facility] [address] [place] [address] Dr. Benito Dupree MCV (RBC) [Entitic vol] 80.6 fL Critically low 81.0-99.0 [facility] Comment on above: Performed By: #### I NFLUAB #### [facility] [address] [place] [address] Dr. Benito Dupree MONO # 0.5 103/ul Normal 0.3-0.8 [facility] Comment on above: Performed By: #### I NFLUAB #### [facility] [address] [place] [address] Dr. Benito Dupree Monocytes/100 WBC (Bld) 4.0 % Normal 1.7-12.0 [facility] Comment on above: Performed By: #### I NFLUAB #### [facility] [address] [place] [address] Dr. Benito Dupree NEUT # 10.6 103/ul Critically high 1.4-6.5 [facility] Comment on above: Performed By: #### I NFLUAB #### [facility] [address] [place] [address] Dr. Benito Dupree Neutrophils/100 WBC (Bld) 79.2 % Critically high 43.0-75.0 [facility] Comment on above: Performed By: #### I NFLUAB #### [facility] [address] [place] [address] Dr. Benito Dupree Platelet mean volume (Bld) [Entitic vol] 9.3 fL Critically low 9.5-13.5 [facility] Comment on above: Performed By: #### I NFLUAB #### [facility] [address] [address] [address] Benito Dupree PLT 391 103/ul Normal 150-450 [facility] Comment on above: Performed By: #### I NFLUAB #### [facility] [address] [address] [address] Benito Dupree RBC 5.15 106/ul Normal 4.20-5.40 [facility] Comment on above: Performed By: #### I NFLUAB #### [facility] [address] [address] [address] Benito Dupree WBC 13.4 103/ul Critically high 4.0-11.0 [facility] Comment on above: Performed By: #### I NFLUAB #### [facility] [address] [place] [address] ABD/PELV W CONon [...] WESTLEY JHA Date: 2022-06-01 14:59 Normal [facility] ER URINE PROFILEon 2 Bilirubin Ql (U) Negative Normal NEGATIVE [facility] Comment on above: Performed By: #### U MICRO, ERUR #### [facility] [address] [address] [address] Benito Dupree Clarity (U) SL CLOUDY Abnormal CLEAR [facility] Comment on above: Performed By: #### U MICRO, ERUR #### [facility] [address] [place] [address] Dr. Benito Dupree Color (U) YELLOW Normal YELLOW [facility] Comment on above: Performed By: #### U MICRO, ERUR #### [facility] [address] [place] [address] Dr. eBnito Dupree ERUAHD A micrscopic examination will be performed if indicated. Normal [facility] Comment on above: Performed By: #### U MICRO, ERUR #### [facility] [address] [address] [address] Benito Dupree Glucose Ql (U) Negative Normal NEGATIVE [facility] Comment on above: Performed By: #### U MICRO, ERUR #### [facility] [address] [address] [address] Benito Dupree Hemoglobin Ql (U) LARGE Abnormal NEGATIVE [facility] Comment on above: Performed By: #### U MICRO, ERUR #### [facility] [address] [address] [address] Benito Dupree Ketones Ql (U) Negative Normal NEGATIVE [facility] Comment on above: Performed By: #### U MICRO, ERUR #### [facility] [address] [place] [address] Dr. Benito Dupree LEUKOCYTES Negative Normal NEGATIVE [facility] Comment on above: Performed By: #### U MICRO, ERUR #### [facility] [address] [address] [address] Benito Dupree Nitrite Ql (U) Negative Normal NEGATIVE [facility] Comment on above: Performed By: #### U MICRO, ERUR #### [facility] [address] [place] [address] Dr. Benito Dupree pH (U) 5.5 [pH] Normal 5-9 [facility] Comment on above: Performed By: #### U MICRO, ERUR #### [facility] [address] [place] [address] Dr. Benito Dupree SPEC GRAVITY 1.010 Normal 1.005-<=1.[address] [place] [address] Comment on above: Performed By: #### U MICRO, ERUR #### [facility] [address] [place] [address] Dr. Benito Dupree UA PROTEIN TRACE Normal NEGATIVE/ TRACE [facility] Comment on above: Performed By: #### U MICRO, ERUR #### [facility] [address] [place] [address] Dr. Benito Dupree UR MICRO IND INDICATED Normal [facility] Comment on above: Performed By: #### U MICRO, ERUR #### [facility] [address] [place] [address] Dr. Benito Dupree Urobilinogen Qn (U) 1.0 {Tuyet'U}/dL Normal 0.2 - 1. 0 [facility] Comment on above: Performed By: #### U MICRO, ERUR #### [facility] [address] [place] [address] Dr. Benito Dupree LACTATE/LACTIC ACIDon 2021 Lactate [Moles/Vol] 1.1 mmol/L Normal 0.4-1.9 [facility] Comment on above: Performed By: #### L ACT #### [facility] [address] [place] [address] Dr. Benito Dupree LIPASEon 06-01-2022 Lipase [Catalytic activity/Vol] 111.0 U/L Normal 73.0-393.0 [facility] Comment on above: Performed By: #### I NFLUAB #### [facility] [address] [place] [address] Dr. Benito Dupree PREG HCG QUALon 06-01-2022 , QUAL Negative Normal NEGATIVE [facility] Comment on above: Performed By: #### P REG #### [facility] [address] [place] [address] Dr. Benito Dupree PROF 14(COMP METB)on 022 Albumin [Mass/Vol] 3.6 g/dL Normal 3.4-5.0 [facility] Comment on above: Performed By: #### I NFLUAB #### [facility] [address] [place] [address] Dr. Benito Dupree Albumin/Globulin [Mass ratio] 0.7 {ratio} Normal [facility] Comment on above: Performed By: #### I NFLUAB #### [facility] [address] [place] [address] Dr. Benito Dupree ALP [Catalytic activity/Vol] 90 U/L Normal 46-116 [facility] Comment on above: Performed By: #### I NFLUAB #### [facility] [address] [place] [address] Dr. Benito Dupree ALT [Catalytic activity/Vol] 39 U/L Normal 14-59 [facility] Comment on above: Performed By: #### I NFLUAB #### [facility] [address] [place] [address] Dr. Benito Dupree Anion gap [Moles/Vol] 13.0 mmol/L Normal [facility] Comment on above: Performed By: #### I NFLUAB #### [facility] [address] [place] [address] Dr. Benito Dupree AST [Catalytic activity/Vol] 25 U/L Normal 15-37 [facility] Comment on above: Performed By: #### I NFLUAB #### [facility] [address] [place] [address] Dr. Benito Dupree Bilirubin [Mass/Vol] 1.1 mg/dL Critically high 0.2-1.0 [facility] Comment on above: Performed By: #### I NFLUAB #### [facility] [address] [address] [address] Benito Dupree Calcium [Mass/Vol] 9.4 mg/dL Normal 8.5-10.1 [facility] Comment on above: Performed By: #### I NFLUAB #### [facility] [address] [address] [address] Benito Dupree Chloride [Moles/Vol] 99 mmol/L Normal 98-107 [facility] Comment on above: Performed By: #### I NFLUAB #### [facility] [address] [address] [address] Benito Dupree CO2 [Moles/Vol] 27.3 mmol/L Normal 21.0-32.0 [facility] Comment on above: Performed By: #### I NFLUAB #### [facility] [address] [place] [address] Dr. Benito Dupree Creatinine [Mass/Vol] 0.87 mg/dL Normal 0.55-1.02 [facility] Comment on above: Performed By: #### I NFLUAB #### [facility] [address] [place] [address] Dr. Benito Dupree EGFR-AF [place]OREAN >60 Normal >=60 [facility] Comment on above: Performed By: #### I NFLUAB #### [facility] [address] [place] [address] Dr. Benito Dupree EGFR-NON AF [place]AN >60 Normal >=60 [facility] Comment on above: Performed By: #### I NFLUAB #### [facility] [address] [place] [address] Dr. Benito Dupree Globulin (S) [Mass/Vol] 4.8 g/dL Normal [facility] Comment on above: Performed By: #### I NFLUAB #### [facility] [address] [place] [address] Dr. Benito Dupree Glucose [Mass/Vol] 218 mg/dL Critically high 74-106 [facility] Comment on above: Performed By: #### I NFLUAB #### [facility] [address] [place] [address] Dr. Benito Dupree Potassium [Moles/Vol] 4.1 mmol/L Normal 3.5-5.1 [facility] Comment on above: Performed By: #### I NFLUAB #### [facility] [address] [place] [address] Dr. Benito Dupree Protein [Mass/Vol] 8.4 g/dL Critically high 6.4-8.2 [facility] Comment on above: Performed By: #### I NFLUAB #### [facility] [address] [place] [address] Dr. Benito Dupree Sodium [Moles/Vol] 135 mmol/L Critically low 136-145 [facility] Comment on above: Performed By: #### I NFLUAB #### [facility] [address] [place] [address] Dr. Benito Dupree Urea nitrogen [Mass/Vol] 15.0 mg/dL Normal 7.0-18.0 [facility] Comment on above: Performed By: #### I NFLUAB #### [facility] [address] [place] [address] Dr. Benito Dupree Urea nitrogen/Creatinine [Mass ratio] 17.2 mg/mg Normal [facility] Comment on above: Performed By: #### I NFLUAB #### [facility] [address] [place] [address] Dr. Benito Dupree URINE MICROSCOPIC ONLYon BACTERIA TRACE Abnormal NONE SEEN [facility] Comment on above: Performed By: #### U MICRO, ERUR #### [facility] [address] [place] [address] Dr. Benito Dupree Bacteria identified Cx Nom (U) NOT INDICATED Normal [facility] Comment on above: Performed By: #### U MICRO, ERUR #### [facility] [address] [place] [address] Dr. Benito Dupree CAST NONE SEEN Normal NONE SEEN [facility] Comment on above: Performed By: #### U MICRO, ERUR #### [facility] [address] [place] [address] Dr. Benito Dupree Crystals LM Nom (Urine sed) NONE SEEN Normal NONE SEEN [facility] Comment on above: Performed By: #### U MICRO, ERUR #### [facility] [address] [address] [address] Benito Dupree Epithelial cells LM Ql (Urine sed) MODERATE Abnormal NONE SEEN /RARE [facility] Comment on above: Performed By: #### U MICRO, ERUR #### [facility] [address] [address] [address] Benito Dupree MUCOUS TRACE Abnormal NONE SEEN [facility] Comment on above: Performed By: #### U MICRO, ERUR #### [facility] [address] [address] [address] Benito Dupree RBC 2-5 Abnormal 0-2 [facility] Comment on above: Performed By: #### U MICRO, ERUR #### [facility] [address] [address] [address] Benito Dupree WBC 0-2 Abnormal NONE SEEN [facility] Comment on above: Performed By: #### U MICRO, ERUR #### [facility] [address] [address] [address] Benito Dupree XR hand RT min 3V*on 022 XR hand RT min 3V* [facility] Other XR hand RT min 3V* [facility] Other XR hand RT min 3V* [address] [place] [address] [facility] Other XR hand RT min 3V* [place] [address] [facility] Other XR hand RT min 3V* XRay Report [employer] Other XR hand RT min 3V* Signed [employer] Other XR hand RT min 3V* Patient: Noel Paul MR#: [id number] [facility] [employer] Other XR hand RT min 3V* : 1990 Acct:[id number] [employer] Other XR hand RT min 3V* Age/Sex: 31 / F ADM Date: 03/22/22 [employer] Other XR hand RT min 3V* Loc: XDUCLY Room: Type: [facility] [employer] Other XR hand RT min 3V* Attending Dr: Monique SANDOVAL [employer] Other XR hand RT min 3V* Ordering Provider: LORI Dias [employer] Other XR hand RT min 3V* Date of Service: 03/22/22 [employer] Other XR hand RT min 3V* XR/XR hand RT min 3V*: Finger pain, right [employer] Other XR hand RT min 3V* Copies to: LORI Dias [employer] Other XR hand RT min 3V* 3 viewsRIGHT hand plain film [employer] Other XR hand RT min 3V* COMPARISON:None N [id number] Other XR hand RT min 3V* HISTORY:Fell going upstairs. RIGHT ring finger injury. [employer] Other XR hand RT min 3V* No fracture, dislocation or focal soft tissue abnormality seen. [employer] Other XR hand RT min 3V* XR/XR hand RT min 3V* [employer] Other XR hand RT min 3V* IMPRESSION:No acute findings [employer] Other XR hand RT min 3V* Impression dictated by: Ta Galvan M.D.03/22/2022 4:42 PM [employer] Other XR hand RT min 3V* Dictation Location: [facility] [employer] Other XR hand RT min 3V* Transcribed By: DANIELLE 03/22/221641 [facility] [employer] Other XR hand RT min 3V* Dictated By: Ta Galvan DO 03/22/221641 [employer] Other XR hand RT min 3V* Signed By: [employer] Other XR hand RT min 3V* 03/22/221641 [facility] [employer] Other Vital Signs Date Time Vital Sign Value Performing Clinician Facility 04-25-2024 13:27-0400 Diastolic blood pressure 85 mm[Hg] Pato Koehler [facility] 04-25-2024 13:27-0400 Heart rate 64 /min Pato Koehler [facility] 04-25-2024 13:27-0400 Mean blood pressure 103 mm[Hg] Pato Koehler [facility] 04-25-2024 13:27-0400 Systolic blood pressure 139 mm[Hg] Pato Koehler [facility] 04-25-2024 13:26-0400 Heart rate 65 /min Pato Koehler [facility] 04-25-2024 13:26-0400 Respiratory rate 16 /min Pato Koehler [facility] 04-25-2024 13:26-0400 SaO2% (BldA) [Mass fraction] 93 % Pato Koehler [facility] 04-25-2024 13:26-0400 Blood Pressure Location Pato Koehler [facility] 04-25-2024 13:26-0400 Body temperature 98.42 [degF] Pato Koehler [facility] 04-25-2024 13:26-0400 Diastolic blood pressure 83 mm[Hg] Pato Koehler [facility] 04-25-2024 13:26-0400 Mean blood pressure 100 mm[Hg] Pato Koehler [facility] 04-25-2024 13:26-0400 Systolic blood pressure 135 mm[Hg] Pato Koehler [facility] 02-27-2024 17:36-0400 Body height 154.94 cm POUNCING MACHINE OPERATOR-C Mnoique Emmanuel Work Phone: [facility] 02-27-2024 17:36-0400 Body mass index (BMI) [Ratio] 58.4 kg/m2 POUNCING MACHINE OPERATOR-C Monique Whitleymer Work Phone: [facility] 02-27-2024 17:36-0400 Body temperature 97.7 [degF] POUNCING MACHINE OPERATOR-C Monique Emmanuel Work Phone: [facility] 02-27-2024 17:36-0400 Body weight 140.38 kg POUNCING MACHINE OPERATOR-C Monique Whitleymer Work Phone: [facility] 02-27-2024 17:36-0400 Heart rate 87 /min POUNCING MACHINE OPERATOR-C Monique Whitleymer Work Phone: [facility] 02-27-2024 17:36-0400 Respiratory rate 18 /min POUNCING MACHINE OPERATOR-C Monique Whitleymer Work Phone: [facility] 02-27-2024 17:36-0400 SaO2% (BldA) [Mass fraction] 97 % POUNCING MACHINE OPERATOR-C Monique Whitleymer Work Phone: [facility] 03-22-2022 16:45-0400 Body height 154.94 cm Monique Dudley Other [facility] 03-22-2022 16:45-0400 Body mass index (BMI) [Ratio] 58.38 kg/m2 Monique Dudley Other [facility] Other 03-22-2022 16:45-0400 Body temperature 97.9 [degF] Monique Dudley Other [facility] Other 03-22-2022 16:45-0400 Body weight 140.16 kg Monique Dudley Other [facility] Other 03-22-2022 16:45-0400 Diastolic blood pressure 93 mm[Hg] Monique Octavia Other [facility] Other 03-22-2022 16:45-0400 Respiratory rate 20 /min Monique Suemond Other [facility] Other 03-22-2022 16:45-0400 SaO2% (BldA) [Mass fraction] 98 % Monique Dudley Other [facility] Other 03-22-2022 16:45-0400 Systolic blood pressure 154 mm[Hg] Monique Suemond Other [facility] Other Encounters Encounter Date Encounter Type Care Provider Facility Start: 04-25-2024 End: 04-26-2024 ambulatory [place] Koe[place] [place]: 04-25-2024 End: 04-25-2024 Patient encounter procedure Pato Koehler [facility] Start: 04-12-2024 End: 04-12-2024 ambulatory PATO KOEHLER Not Available Start: 03-29-2024 End: 03-29-2024 ambulatory PATO KOEHLER Not Available Start: 02-27-2024 End: 02-27-2024 ambulatory Monique Dudley Facility:[facility] Start: 02-27-2024 End: 02-27-2024 ambulatory POUNCING MACHINE OPERATOR-C Monique Alicia Emmanuel Work Phone: [facility] Work Phone: Start: 02-27-2024 End: 02-27-2024 Patient encounter procedure POUNCING MACHINE OPERATOR-C Monique Emmanuel Work Phone: [facility] [...] medical examination without abnormal findings MONIQUE EMMANUEL [facility] Start: 08-18-2022 End: 08-19-2022 ambulatory MONIQUE EMMANUEL Facility:[facility] Start: 08-18-2022 End: 08-19-2022 Encounter for general adult medical examination without abnormal findings MONIQUE EMMANUEL Facility:[facility] Start: 06-01-2022 End: 06-01-[address] WESTLEY JHA Facility:[facility] Start: 03-22-2022 End: 03-22-2022 ambulatory Monique Dudley Other [facility] Other Start: 03-22-2022 Office outpatient vi sit 15 minutes Monique Dudley [facility] Procedures Date Procedure Procedure Detail Performing Clinician Start: 02-27-2024 Plain X-ray of right shoulder POUNCING MACHINE OPERATOR-C Monique Emmanuel Work Phone: Cholecystectomy Pato pulliam Payers Date Payer Category Payer Self-pay [id number] 1990 Unknown [id number] 2.16.84 [id number] 1990 Unknown [id number] 2.16.84 [id number] 1988 Unknown [id number] 2.16.84 [id number] 1988 Unknown [id number] 2.16.84 0.1.260980.3.579.2.593 1988 Unknown [id number] 2.16.84 0.1.404379.3.579.2.593 1988 Unknown [id number] 2.16.84 0.1.144068.3.579.2.593 1988 Unknown [id number] 2.16.84 0.1.621039.3.579.2.593 1988 Unknown [id number] 2.16.84 [id number] 1988 Unknown [id number] 2.16.84 [id number] 1988 Unknown [id number] 2.16.84 [id number] 1988 Unknown [id number] 2.16.8 [id number] 1961 [employer] Blue Shield [id number] Unknown [id number] 2.16.8 [id number] Social History Date Type Detail Facility Unknown if ever smoked [facility] Other Sex Assigned At [facility] Start: 10-25-2018 Tobacco smoking stat us NHIS Never smoked tobacco (finding) [facility] Start: 1990 Sex Assigned At Female F [facility] Tobacco smoking status No Smokin g Status Entered [facility] Functional Status Date Assessment Result Facility 04-25-2024 Functional Status No [facility] Evaluation note 03-22-2022 Note Date & [...] no improvement in 5 to 7 days. [facility] Other Evaluation + Plan note Note Date & Type Note Facility Evaluation + Plan note Future Appointments Appointment Date:05/09/2024 07:30:00 AM Scheduled Provider: Location:[facility] Appointment Type:Surgery FT [facility] Evaluation note Note Date & Type Note Facility Evaluation note No assessment information availa [facility] Work Phone: History general Narrative - Reported Note Date & Type Note Facility History general Narrative - Reported Type Medical History Acquired hypothyroidism Medical History vitamin D deficiency Surgical History cholecystectomy Hospitalization History No Hospitalization histo ry information [facility] Other Hospital course Narrative Note Date & Type Note Facility Hospital course Narrative No data available for this section [facility] Hospital Discharge instructions Note Date & Type Note Facility Hospital Discharge instructions No data available for this section [facility] Progress note Note Date & Type Note Facility Progress note No data available for this section [facility] Summary Purpose Family History No Family History Records Found Relationship Condition Age at Onset Recorded Date/T luis alfredo Not Specified Unknown Heart disease Unknown Advance Directives No Advanced Directives Records Found Advance Directive Response Recorded Date/ Time Advance Directives No February 20, 019 1:53pm Chief Complaint and Reason for Visit Chief Complaint Right shoulder pain, s/p lifting heavy object M25.511 - Pain in right shoulder Additional Source Comments REASON FOR VISIT (unrecogniz ed section and content) INJURY TO RIGHT RING FINGER INFORMATION SOURCE (unrecogn ized section and content) DATE CREATED AUTHOR 05/06/2023 [facility] DATE CREATED AUTHOR AUTHOR'S ORGANIZ ATION 02/28/2024 [facility] DATE CREATED AUTHOR AUTHOR'S ORGANIZ ATION 04/15/2024 [facility] DATE CREATED AUTHOR AUTHOR'S ORGANIZ ATION 04/26/2024 [facility] Care Teams (unrecognized sec tion and content) Team Status: Active Member Role Status Dates Monique Emmanuel NP-Teresa Primary Care Provider Active Team Status: Inactive [...] BE BASED ON THE PRIMARY CLINICAL RECORDS. [employer] [facility]. provides no warranty or guarantee of the accuracy or completeness of information in this document.
== END 2024-05-03 09:25 | disposition home or self-care (01) ==
LOC: MRI 09:25
PROVIDERS: PCP Nurse Practitioner Family; Visit Provider Orthopaedic Surgery
DX: M25.511 Pain in right shoulder (principal)
CPT/HCPCS: 73221

== ENCOUNTER 2024-05-24 16:21 | Emergency (ER) | payer BC, SELFPAY ==
[2024-05-24 16:25] VITALS: BP 157/100; PULSE 84; TEMP 36.6; O2SAT 97; BMI 56.5
--- NOTE | 2024-05-24 16:35 | XR_ITS ---
The [address] [address] Patient Name: NOEL ROCHE MRN: [id number] date: 1990 Sex: F Assigned Patient Location: ER Current Patient Location: ER Accession/Order Number: [id number] Exam Date: 05/24/2024 16:47 Report Date: 05/24/2024 17:59 At the request of: MARCELL ANGELES Procedure: XR foot LT min 3V EXAM: XR foot LT min 3V HISTORY: ankle pain COMPARISON: None. TECHNIQUE: 3 views of the left foot FINDINGS: Images are obtained without the left foot in a splint which obscures bony detail. No definite acute fracture is seen. Joint alignment is normal. Joint spaces are preserved. XR/XR foot LT min 3V IMPRESSION: Images are obtained without the left foot in a splint which obscures bony detail. No definite acute fracture or malalignment is seen. Electronically authenticated by: HARSHAL MORENO Date: 05/24/2024 17:59
--- NOTE | 2024-05-24 16:35 | XR_ITS ---
The [address] [address] Patient Name: NOEL ROCHE MRN: [id number] date: 1990 Sex: F Assigned Patient Location: ER Current Patient Location: ER Accession/Order Number: [id number] Exam Date: 05/24/2024 16:47 Report Date: 05/24/2024 17:58 At the request of: MARCELL ANGELES Procedure: XR ankle LT min 3V EXAM: XR ankle LT min 3V HISTORY: ankle pain COMPARISON: None. TECHNIQUE: 3 views of the left ankle FINDINGS: Images are obtained with the ankle in a posterior splint which obscures bony detail. No definite acute fracture seen. Joint alignment is normal. The ankle mortise is intact. Large plantar calcaneal spur is seen. XR/XR ankle LT min 3V IMPRESSION: No definite radiographic evidence for acute fracture or malalignment. Electronically authenticated by: HARSHAL MORENO Date: 05/24/2024 17:58
--- OUTSIDE RECORDS SUMMARY | 2024-05-24 16:39 | XMS_ITS | CCD ---
Author Organization [facility] Providers Care Tank Calibrator Name Role Phone Monique Dudley Unavailable MONIQUE [...] Unavailable YUDELKA, DR WESTLEY Cabral Consulting Unavailable HAY ., DR COPPOLA Admitting Unavailable REQUEST, DR NONE LISTED Primary Care Unavaila ble TIA Bonds, DR COPPOLA Attending Unavailable BRIDGETTE ., SUNIL FAITH Consulting Unavailabl scar Dudley NP-Teresa Amaya Attending Provider [phone] LORI Emmanuel Primary Care Provider MONIQUE EMMANUEL Primary Care Physician Pato Koehler Referring Unavailable Pato Koehler Attending Unavailable Pato Koehler Admitting Unavailable Pato Koehler Referring Unavailable Pato Koehler Attending Unavailable Pato Koehler Admitting Unavailable PATO KOEHLER Attending Unavailable PATO KOEHLER Attending Unavailable PATO KOEHLER Attending Unavailable SHITAL Koehler Attending Provider Pato Koehler Admitting Unavailable Pato Koehler Attending Unavailable Monique Emmanuel Primary Care Unavailable Monique Dudley Admitting Unavailable Monique Dudley Attending Unavailable Monique Emmanuel Primary Care Unavailable Allergies Allergy Classification Reported Allergen(s) Allergy Type Date of Onset Reaction(s) Facility (1 source) Egg protein Drug allergy [facility] Other (1 source) Sulf-10 Drug allergy [facility] Other (1 source) Sulfonamides (Antibiotic) Drug allergy (disorder) 3 [facility] (4 sources) Sulfonamides (Antibiotic); Translations: [Sulfa (Sulfonamide Antibiotics)] Allergy to substance 4 [facility] (4 sources) Egg Derived; Translations: [Egg Derived] Allergy to substance 4 [facility] (3 sources) Sulfonamides (Antibiotic); Translations: [sulfa drugs] Drug allergy [facility] Medications Current Medications Medication Drug Class(es) Dates Sig (Normalized) Sig (Original) cholecalciferol 0.125 mg oral tablet (3 sources) Vitamin D Start: 02-27-2024 take 125 ug by mouth once daily Cholecalciferol (Vitamin D3) Active 125 MCG PO Daily February 27, 2024 12:00am escitalopram 20 mg oral tablet (3 sources) Serotonin Reuptake Inhibitor Start: 05-16-2024 take 20 mg by mouth once daily Escitalopram Oxalate Active 20 MG PO Daily May 16, 2024 12:00am Start: 04-25-2024 take 1 tablet by jose th once daily Lexapro 20 mg Tab 20 mg = 1 tab(s), Oral, Daily, Refills(s) 0, Anxiety Start Date: 04/25/24 Status: Ordered metFORMIN hydrochloride 500 mg oral tablet (5 sources) Biguanide Start: 04-25-2024 take 1 tablet by mouth once daily metformin 500 mg Tab 500 mg = 1 tab(s), Oral, Daily, Refills(s) 0 Start Date: 04/25/24 Status: Ordered Start: 02-27-2024 take 500 mg by mouth twice tahir ly Metformin Active 500 MG PO Twice daily February 27, 2024 12:00am omeprazole 20 mg delayed release oral capsule (5 sources) Proton Pump Inhibitor Start: 02-27-2024 omeprazole 20 mg Cap-DR 20 mg = 1 cap(s), Oral, Daily, Refills(s) 0, Control of stomach acid Start Date: 04/25/24 Status: Ordered traZODone hydrochloride 50 mg oral tablet (3 sources) Serotonin Reuptake Inhibitor Start: 05-16-2024 take 100 mg by mouth once daily at bedtime Trazodone Active 100 MG PO Daily at bedtime May 16, 2024 12:00am Start: 04-25-2024 take 2 tablets by mo uth at bedtime traZODONE 50 mg Tab 100 mg = 2 tab(s), Oral, Bedtime, Refills(s) 0, Sleep Start Date: 04/25/24 Status: Ordered Pierson Sling (3 sources) Start: 02-27-2024 Pierson Slin g Active 0 .Route 1 February 27, 2024 12:00am As directed Vitamin D (2 sources) Start: 04-25-2024 Vitamin D Oral , Daily, Refills(s) 0, Prophylaxis Start Date: 04/25/24 Status: Ordered Problems Active Problems Problem Classification Problem Date Documented Date Episodic/Chronic Anxiety disorders (2 sources) Anxiety 04-25-2024 Chronic Diabetes mellitus without complication (7 sources) Type 2 diabetes mellitus without complications; Translations: [Diabetes mellitus] Onset: 08-25-2022 Chronic Disorders of lipid metabolism (4 sources) Pure hyperglyceridemia; Translations: [PURE HYPERGLYCERIDEMIA] Onset: 11-15-2022 Chronic Esophageal disorders (2 sources) Gastroesophageal reflux disease 04-25-2024 Chronic Nutritional deficiencies (3 sources) Vitamin D deficiency, unspecified; Translations: [Vitamin D deficiency] Onset: 08-19-2022 04-25-2024 Chronic Other non-traumatic joint disorders (1 source) Pain in right shoulder; Translations: [Pain in right shoulder] Onset: 02-27-2024 Episodic Other upper respiratory disease (1 source) Allergic rhinitis due to pollen; Translations: [Allergic rhinitis due to pollen] Chronic Other upper respiratory infections (4 sources) Chronic sinusitis, unspecified; Translations: [CHRONIC SINUSITIS UNSPECIFIED] Onset: 02-08-2023 Chronic Pancreatic disorders (not diabetes) (2 sources) Pancreatitis 02-08-2014 Episodic Unclassified (1 source) CONTACT [...] Test Name Value Interpretation Reference Range Facility Basic Metabolic Panelon 04-28 Creatinine Clr Calc Pharmacy 161.75 Normal [facility] Comment on above: Result Comment: PERF ORMED BY: [place] [address] PATHOLOGIST MICROPHONE BOOM OPERATOR SIMEON BIGGS M.D. Performed By: #### B MP #### [address] GFR/1.73 sq M.predicted MDRD (S/P/Bld) [Vol rate/Area] mL/min/{1.73_m2} Normal [facility] Comment on above: Performed By: #### B MP #### [place] [id number] [facility] Calcium [Mass/volume] in Ser um or PlasmaOrdered By: Melvin Ruano on 05-16-2024 Calcium [Mass/Vol] 8.8 mg/dL Normal 8.6-10.3 [facility] Comment on above: Performed By: #### B MP #### [facility] [address] Capillary blood glucose jaswindre urement by glucometer (mass/volume)Ordered By: Pato Koehler on 05-16-2024 Glucose [Mass/Vol] 106 mg/dL Normal [facility] Comment on above: Random Glucose Refer ence Range is dependent on time and content of last meal. Glucose of more than 200 mg/dL in a nonstressed, ambulatory subject supports the diagnosis of Diabetes Mellitus. Result Comment: [place] om Glucose Reference Range is dependent on time and content of last meal. Glucose of more than 200 mg/dL in a nonstressed, ambulatory subject supports the diagnosis of Diabetes Mellitus. Performed By: #### G BARAK #### Point of Care testing , Carbon dioxide, total [Moles /volume] in Serum or PlasmaOrdered By: Melvin Ruano on 05-16-2024 CO2 [Moles/Vol] 27.3 mmol/L Normal 21.0-31.0 [facility] Comment on above: Performed By: #### B MP #### [facility] [address] [place] [address] [place] Chloride [Moles/volume] in S nikkie or PlasmaOrdered By: Melvin Ruano on 05-16-2024 Chloride [Moles/Vol] 105 mmol/L Normal 98-107 [facility] Comment on above: Performed By: #### B MP #### [facility] [address] [place] [id number] [place] Creatinine [Mass/volume] in Serum or PlasmaOrdered By: Melvin Ruano on 05-16-2024 Creatinine [Mass/Vol] 0.66 mg/dL Normal 0.60-1.20 [facility] Comment on above: Performed By: #### B MP #### [facility] [address] [place] [address] [place] Glucose Poct Glucometerson 0 05-16-2024 Commemt1 Glu2: Cleaned Meter Normal [facility] Comment on above: Result Comment: PERF ORMED BY: [place] [address] PATHOLOGIST MICROPHONE BOOM OPERATOR SIMEON BIGGS M.D. Performed By: #### G LULS #### Point of Care testing , Glucose [Mass/volume] in Ser um or PlasmaOrdered By: Melvin Ruano on 05-16-2024 Glucose [Mass/Vol] 107 mg/dL High 70-100 [facility] Comment on above: ADA recommended refe rence rangeRandom Glucose Reference Range is dependent on time and content of last meal. Glucose of more than 200 mg/dL in a nonstressed, ambulatory subject supports the diagnosis of Diabetes Mellitus. Result Comment: [place] om Glucose Reference Range is dependent on time and content of last meal. Glucose of more than 200 mg/dL in a nonstressed, ambulatory subject supports the diagnosis of Diabetes Mellitus. ADA recommended reference range Performed By: #### B MP #### [facility] [address] [place] [address] HCG ( test) IA.rapi d Ql (U)Ordered By: Melvin Ruano on 05-16-2024 HCG ( test) Ql (U) Negative [facility] HCG,Urineon 05-16-2024 Beta HCG ( test) Ql (U) Negative Normal [facility] Comment on above: Result Comment: PERF ORMED BY: [place] [address] PATHOLOGIST MICROPHONE BOOM OPERATOR SIMEON BIGGS M.D. Performed By: #### U HCG #### [facility] [address] [place] [address] [place] Jason 05-16-2024 L Specimen: [id number] Received: 05/16/24 Status: KESHA Romo Num: [id number] Spec Type: Surgical Subm Dr: Pato Koehler DPM Tissues: A Bone Fragments - Other than Path Fracture (ACCESSORY BONE LT FOOT) Procedures: HE, Gross/Micro L3, Decalcification Age/ Patient Sex Location Account Attending Physician Kyung Paul 33/F [place] [id number] Pato Koehler DPM SPEC NUM: [id number] RECD: 05/16/24 STATUS: KESHA ROMO NUM: [id number] BRUNO: 05/16/24- SUBM DR: Pato Koehler DPM ENTERED: 05/16/24 [facility] DR: SPEC TYPE: Surgical DEPT: S ORDERED: HE, Gross/Micro L3, Decalcification ORDERED: HE, Gross/Micro L3, Decalcification Pathological Diagnosis Left foot accessory navicular bone, excision -Large wedge portion of nodular bony segment with mild irregular thickening of the periosteum, and the irregularly associated chondroid metaplasia of the soft tissue and the cortical bony portion, consistent with moderate secondary impinged effect 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 Cut sections of each bone demonstrate unremarkable, firm yellow spongy bone matrix. No areas of necrosis or cysts are present. Fire Regulator sections are submitted following decalcification in A1. CPT Codes 75516, 81244 Specimen: [id number] Received: 05/16/24 Status: KESHA Romo Num: [id number] Spec Type: Surgical Subm Dr: Pato Koehler DPM Tissues: A Bone Fragments - Other than Path Fracture (ACCESSORY BONE LT FOOT) Procedures: HE, Gross/Micro L3, Decalcification Patient: PolloKyung palacios Tadeo [id number] (Continued) Signed (signature on file) Chin-Lukasz Dupree MD 05/19/24 1640 Normal [facility] No Panel InformationOrdered By: Pato Koehler on 05-16-2024 Bedside Glucose Comment Glu2: cleaned meter [facility] No Panel InformationOrdered By: Melvin Ruano on 05-16-2024 Estimated GFR (CKD-EPI) > 60.0 mL/Min [facility] Creatinine Clearance (Chem 161.75 [facility] Potassium [Moles/volume] in Serum or PlasmaOrdered By: Melvin Ruano on 05-16-2024 Potassium [Moles/Vol] 3.8 mmol/L Normal 3.5-5.1 [facility] Comment on above: Performed By: #### B MP #### [facility] [address] Serum or plasma anion gap de terminationOrdered By: Melvin Ruano on 05-16-2024 Anion gap [Moles/Vol] 9.5 mmol/L Normal 6.0-15.0 [facility] Comment on above: Performed By: #### B MP #### [facility] [address] [place], [place] [id number] [facility] Sodium [Moles/volume] in Ser um or PlasmaOrdered By: Melvin Ruano on 05-16-2024 Sodium [Moles/Vol] 138 mmol/L Normal 136-145 [facility] Comment on above: Performed By: #### B MP #### [address] Urea nitrogen [Mass/volume] in Serum or PlasmaOrdered By: Melvin Ruano on 05-16-2024 Urea nitrogen [Mass/Vol] 17 mg/dL Normal 7-25 [facility] Comment on above: Performed By: #### B MP #### [address] XR foot LT 2Von 05-16-2024 XR foot LT [address]V [facility] [place] [address] [place] [address] XRay Report Signed Patient: Kyung Paul MR#: [id number] : 1990 Acct:[id number] Age/Sex: 33 / F ADM Date: 05/16/24 Loc: [place] Room: Type: [facility] Attending Dr: Pato Koehler DPM Copies to: Pato Koehler DPM Ordering Provider: Pato Koehler DPM Date of Service: 05/16/24 XR/XR foot LT 2V: post op kidner procedure LEFT FOOT - 2 VIEWS CLINICAL DATA: Follow-up after kidner procedure and tendon anchor COMPARISON: 02/17/2019 AP and lateral views were obtained in a splint which slightly limits fine bone detail. The osseous naviculare seen at the time the prior is no longer identified. No acute fractures or dislocation are identified. There our calcaneal spurs. There is no prominent soft tissue swelling. XR/XR foot LT 2V IMPRESSION: INTERVAL RESECTION OF OS NAVICULARE. NO ACUTE BONY FINDINGS. Impression dictated by: Leisa Adames M.D.05/16/2024 3:20 PM Dictation Location: [place] [address] Transcribed By: [facility] 05/16/24 1520 Dictated By: Leisa Adames MD 05/16/24 1515 Signed By: 05/16/24 1520 Normal [facility] CBC w/ Auto Diffon 4 Basophils/100 WBC (Bld) 0.5 % Normal 0.0-2.0 [facility] Comment on above: Performed By: #### 2 [id number] #### [facility] [address] [place] [address] Basophils/Leukocytes Auto (Bld) [Pure # fraction] 0.1 E9/L Normal 0.0-0.2 [facility] Comment on above: Performed By: #### 2 [id number] #### [facility] [address] [place] [address] Eosinophils (Bld) [#/Vol] 0.3 E9/L Normal 0.0-0.5 [facility] Comment on above: Performed By: #### 2 [id number] #### [facility] [address] [place] [address] Eosinophils/100 WBC (Bld) 2.9 % Normal 0.0-8.0 [facility] Comment on above: Performed By: #### 2 [id number] #### [facility] [address] [place] [address] Erythrocyte distribution width (RBC) [Ratio] 15.6 % High 10.9-14.2 [facility] Comment on above: Performed By: #### 2 [id number] #### [facility] [address] [place] [address] Hematocrit (Bld) [Volume fraction] 39.9 % Normal 34.0-46.0 [facility] Comment on above: Performed By: #### 2 [id number] #### [facility] [address] [place] [address] Hemoglobin (Bld) [Mass/Vol] 12.8 g/dL Normal 12.0-16.0 [facility] Comment on above: Performed By: #### 2 [id number] #### [facility] [address] [place] [address] Lymphocytes (Bld) [#/Vol] 2.3 E9/L Normal 1.0-4.0 [facility] Comment on above: Performed By: #### 2 [id number] #### [facility] [address] [place] [address] Lymphocytes/100 WBC (Bld) 20.9 % Normal 14.0-50.0 [facility] Comment on above: Performed By: #### 2 [id number] #### [facility] [address] [place] [address] MCH (RBC) [Entitic mass] 25.4 pg Low 27.0-34.0 [facility] Comment on above: Performed By: #### 2 690331 #### [facility] [address] [place] [address] MCHC (RBC) [Mass/Vol] 32.2 g/dL Normal 31.4-36.0 [facility] Comment on above: Performed By: #### 2 [id number] #### [facility] [address] [place] [address] MCV (RBC) [Entitic vol] 79.0 fL Low 80.0-100.0 [facility] Comment on above: Performed By: #### 2 081208 #### [facility] [address] [place] [address] Monocytes (Bld) [#/Vol] 0.7 E9/L Normal 0.2-1.0 [facility] Comment on above: Performed By: #### 2 [id number] #### [facility] [address] [place] [address] Neutrophils (Bld) [#/Vol] 7.7 E9/L High 2.0-7.5 [facility] Comment on above: Performed By: #### 2 491960 #### [facility] [address] [place] [address] Neutrophils/100 WBC (Bld) 69.3 % Normal 36.0-75.0 [facility] Comment on above: Performed By: #### 2 624656 #### [facility] [address] [place] [address] Platelet mean volume (Bld) [Entitic vol] 8.3 fL Normal 6.4-10.8 [facility] Comment on above: Performed By: #### 2 [id number] #### [facility] [address] [place] [address] Platelets (Bld) [#/Vol] 346.0 E9/L Normal 150.0-500.0 [facility] Comment on above: Performed By: #### 2 [id number] #### [facility] [address] [place] [address] RBC (Bld) [#/Vol] 5.1 E12/L Normal 4.3-5.9 [facility] Comment on above: Performed By: #### 2 859804 #### [facility] [address] [place] [address] WBC corrected for nucl RBC Auto (Bld) [#/Vol] 11.1 E9/L High 4.0-11.0 [facility] Comment on above: Performed By: #### 2 [id number] #### [facility] [address] [place] [address] Consent for Treatmenton 03-29 Consent for Treatment [id number] #1.00TIFF Normal [facility] HEMATOLOGYOrdered By: SYSTEM SYSTEM on 04-25-2024 Basophils/100 [...] Heme Platelets (Bld) [#/Vol] 346.0 E9/L Normal 150. 0 - 500.0 E9/L Remisol Heme RBC (Bld) [#/Vol] 5.1 E12/L Normal 4.3 - 5.9 E12/L Remisol Heme WBC corrected for nucl RBC Auto (Bld) [#/Vol] 11.1 E9/L High 4.0 - 11.0 E9/L Remisol Heme Physician Orderon 04-18-2024 Physician Order [id number] #1.00TIFF Normal [facility] XR shoulder RT min 2V*on XR shoulder RT min 2V* [facility] [address] [place] [address] [place] [address] XRay Report Signed Patient: Kyung Paul MR#: [id number] : 1990 Acct:[id number] Age/Sex: 33 / F ADM Date: 02/27/24 Loc: [facility] Room: Type: [facility] Attending Dr: Monique SANDOVAL Copies to: LORI [...] Leisa Adames M.D.02/27/2024 6:14 PM Dictation Location: [place] [address] Transcribed By: [facility] 02/27/241813 Dictated By: Leisa Adames MD 02/27/241812 Signed By: 02/27/241813 Normal [facility] GLYCOHEMOGLOBIN A1Con 2022 ADA RECOMMENDATION SEE BELOW Normal [facility] Comment on above: Result Comment: ADA RECOMMENDED LIMIT 4.0 - 6.0 ADA THERAPEUTIC TARGET < 7.0 ACTION SUGGESTED > 7.0 Performed By: #### A 1C #### [facility] [address] [place] [address] [address] Benito Dupree Glucose [Mass/Vol] 105 mg/dL Normal [facility] Comment on above: Performed By: #### A 1C #### [facility] [address] [place] [address] [address] Benito Dupree HbA1c (Bld) [Mass fraction] 5.3 % Normal 4.5-6.2 [facility] Comment on above: Performed By: #### A 1C #### [facility] [address] [place] [address] Dr. Benito Dupree Covid-19 PCR ([facility])on SARS-CoV-2 (COVID-19) RNA MUKUND+probe Ql (Unsp spec) Not detected Normal NOT DETECTED [facility] Comment on above: Result Comment: This test is not yet approved or cleared by the [place] FDA. When there are no FDA-approved or cleared tests available, and other criteria are met, FDA can make tests available under an emergency access mechanism called an Emergency Use Authorization (EUA). The EUA for this test is supported by the [place] of Health and Human Service's (HHS's) declaration [...] consistent with SARS-CoV-2. Performed By: #### C VDTB #### [facility] [address] [place] [address] Dr. Benito Dupree INFLUENZA A AND B AGon 01-05 [facility] SEE BELOW Normal [facility] Comment on above: Result Comment: Nega tive for Flu A protein angiten. Infection due to Flu A cannot be ruled out. Flu A angiten in the sample may be below the detection limit of the test. Performed By: #### I NFLUAB #### [facility] [address] [place] [address] Dr. [facility] Normal [facility] Comment on above: Result Comment: Nega tive for Flu B protein antigen. Infection due to Flu B cannot be ruled out. Flu B antigen in the sample may be below the detection limit of the test. Performed By: #### I NFLUAB #### [facility] [address] [place] [address] [address] Benito Dupree INFLUENZA A AG Negative Normal NEGATIVE SEE COMMENT [facility] Comment on above: Performed By: #### I NFLUAB #### [facility] [address] [place] [address] [address] Benito Dupree INFLUENZA B AG Negative Normal NEGATIVE SEE COMMENT [facility] Comment on above: Performed By: #### I NFLUAB #### [facility] [address] [place] [address] [address] Benito Dupree GLYCOHEMOGLOBIN A1Con 2021 ADA RECOMMENDATION SEE BELOW Normal [facility] Comment on above: Result Comment: ADA RECOMMENDED LIMIT 4.0 - 6.0 ADA THERAPEUTIC TARGET < 7.0 ACTION SUGGESTED > 7.0 Performed By: #### A 1C #### [facility] [address] [place] [address] Dr. Benito Dupree Glucose [Mass/Vol] 143 mg/dL Normal [facility] Comment on above: Performed By: #### A 1C #### [facility] [address] [place] [address] Dr. Benito Dupree HbA1c (Bld) [Mass fraction] 6.6 % Critically high 4.5-6.2 [facility] Comment on above: Performed By: #### A 1C #### [facility] [address] [place] [address] Dr. Benito Dupree LIPID PROFILEon 11-15-2022 CHOL-HDL RATIO NORM SEE BELOW Normal [facility] Comment on above: Result Comment: 3.3 - 4.4 LOW RISK 4.4 - 7.1 AVERAGE RISK 7.1 - 11.0 MODERATE RISK >11.0 HIGH RISK Performed By: #### I NFLUAB #### [facility] [address] [place] [address] Dr. Benito Dupree Cholesterol [Mass/Vol] 154 mg/dL Normal <=200 Th [facility] Comment on above: Performed By: #### I NFLUAB #### [facility] [address] [place] [address] Dr. Benito Dupree Cholesterol in HDL [Mass/Vol] 29 mg/dL Critically low 40-60 [facility] Comment on above: Performed By: #### I NFLUAB #### [facility] [address] [place] [address] [address] Benito Dupree Cholesterol in LDL [Mass/Vol] 98.2 mg/dL Normal [facility] Comment on above: Performed By: #### I NFLUAB #### [facility] [address] [place] [address] [address] Benito Dupree Cholesterol.total/Lisandra sterol in HDL [Mass ratio] 5.3 {ratio} Normal [facility] Comment on above: Performed By: #### I NFLUAB #### [facility] [address] [place] [address] [address] Benito Dupree HDL NORMAL > or = 60 mg/dl - LOW CARDIOVASCULAR RISK <40 mg/dl - HIGH CARDIOVASCULAR RISK Normal [facility] Comment on above: Performed By: #### I NFLUAB #### [facility] Laboratory [address] [address] [address] Benito Dupree LDL CALC NORMAL SEE BELOW Normal [facility] Comment on above: Result Comment: <100 mg/dl OPTIMAL 100 - 129 mg/dl NEAR OR ABOVE OPTIMAL 130 - 159 mg/dl BORDERLINE HIGH 160 - 189 mg/dl HIGH >190 mg/dl VERY HIGH Performed By: #### I NFLUAB #### [facility] [address] [address] [address] Benito Dupree Triglyceride [Mass/Vol] 134 mg/dL Normal <=150 T [facility] Comment on above: Performed By: #### I NFLUAB #### [facility] [address] [address] [address] Benito Dupree VLDL CALC 26.8 mg/dL Normal [facility] Comment on above: Performed By: #### I NFLUAB #### [facility] [address] [place] [address] Dr. Benito Dupree INSULINon 08-19-2022 Insulin 24.3 uIU/mL Normal 2.6-24.9 [facility] Comment on above: Performed By: #### I NFLUAB #### [facility] [address] [place] [address] Dr. Benito Dupree T4, T3U, FTI LABCORPon 08-19 Free Thyroxine Index 2.6 Normal 1.2-4.9 [facility] Comment on above: Performed By: #### T HYLC #### [facility] [address] [place] [address] Dr. Benito Dupree T3 Uptake 29 % Normal 24-39 [facility] Comment on above: Performed By: #### T HYLC #### [facility] [address] [place] [address] Dr. Benito Dupree T4 [Mass/Vol] 8.8 ug/dL Normal 4.5-12.0 [facility] Comment on above: Performed By: #### T HYLC #### [facility] [address] [place] [address] Dr. Benito Dupree CBC AUTO DIFFon 08-18-2022 BASO # 0.1 103/ul Normal 0.0-0.1 [facility] Comment on above: Performed By: #### I NFLUAB #### [facility] [address] [place] [address] Dr. Benito Dupree Basophils/100 WBC (Bld) 0.8 % Normal 0.2-2.0 [facility] Comment on above: Performed By: #### I NFLUAB #### [facility] [address] [place] [address] Dr. Benito Dupree EO # 0.3 103/ul Normal 0.0-0.7 [facility] Comment on above: Performed By: #### I NFLUAB #### [facility] [address] [place] [address] Dr. Benito Dupree Eosinophils/100 WBC (Bld) 2.8 % Normal 0.9-7.0 [facility] Comment on above: Performed By: #### I NFLUAB #### [facility] [address] [place] [address] Dr. Benito Dupree Erythrocyte distribution width (RBC) [Ratio] 15.4 % Critically high 11.0-15.0 [facility] Comment on above: Performed By: #### I NFLUAB #### [facility] [address] [place] [address] Dr. Benito Dupree Hematocrit (Bld) [Volume fraction] 43.7 % Normal 36.0-48.0 [facility] Comment on above: Performed By: #### I NFLUAB #### [facility] [address] [place] [address] Dr. Benito Dupree Hemoglobin (Bld) [Mass/Vol] 14.2 g/dL Normal 12.0-16.0 [facility] Comment on above: Performed By: #### I NFLUAB #### [facility] [address] [place] [address] Dr. Benito Dupree IG # 0.08 10e3/ul Critically high 0.00-0.03 [facility] Comment on above: Performed By: #### I NFLUAB #### [facility] [address] [place] [address] Dr. Benito Durpee IG % 0.9 % Critically high 0.0-0.5 [facility] Comment on above: Performed By: #### I NFLUAB #### [facility] [address] [place] [address] Dr. Benito Dupree LYMPH # 2.3 103/ul Normal 1.2-3.8 [facility] Comment on above: Performed By: #### I NFLUAB #### [facility] [address] [place] [address] Dr. Benito Dupree Lymphocytes/100 WBC (Bld) 24.3 % Normal 20.5-60.0 [facility] Comment on above: Performed By: #### I NFLUAB #### [facility] [address] [place] [address] Dr. Benito Dupree MANUAL DIFF REQ NO Normal [facility] Comment on above: Performed By: #### I NFLUAB #### [facility] [address] [place] [address] Dr. Benito Dupree MCH (RBC) [Entitic mass] 26.1 pg Critically low 26.7-34.0 [facility] Comment on above: Performed By: #### I NFLUAB #### [facility] [address] [place] [address] Dr. Benito Dupree MCHC (RBC) [Mass/Vol] 32.5 g/dL Normal 29.9-35.2 [facility] Comment on above: Performed By: #### I NFLUAB #### [facility] [address] [place] [address] Dr. Benito Dupree MCV (RBC) [Entitic vol] 80.2 fL Critically low 81.0-99. 0 [facility] Comment on above: Performed By: #### I NFLUAB #### [facility] [address] [place] [address] Dr. Benito Dupree MONO # 0.5 103/ul Normal 0.3-0.8 [facility] Comment on above: Performed By: #### I NFLUAB #### [facility] [address] [place] [address] Dr. Benito Dupree Monocytes/100 WBC (Bld) 5.2 % Normal 1.7-12.0 [facility] Comment on above: Performed By: #### I NFLUAB #### [facility] [address] [place] [address] Dr. Benito Dupree NEUT # 6.1 103/ul Normal 1.4-6.5 [facility] Comment on above: Performed By: #### I NFLUAB #### [facility] [address] [place] [address] Dr. Benito Dupree Neutrophils/100 WBC (Bld) 66.0 % Normal 43.0-75.0 [facility] Comment on above: Performed By: #### I NFLUAB #### [facility] [address] [place] [address] Dr. Benito Dupree Platelet mean volume (Bld) [Entitic vol] 9.9 fL Normal 9.5-13.5 [facility] Comment on above: Performed By: #### I NFLUAB #### [facility] [address] [address] [address] Benito Dupree PLT 291 103/ul Normal 150-450 [facility] Comment on above: Performed By: #### I NFLUAB #### [facility] [address] [address] [address] Benito Dupree RBC 5.45 106/ul Critically high 4.20-5.40 [facility] Comment on above: Performed By: #### I NFLUAB #### [facility] [address] [address] [address] Benito Dupree WBC 9.3 103/ul Normal 4.0-11.0 [facility] Comment on above: Performed By: #### I NFLUAB #### [facility] [address] [place] [address] Dr. Benito Dupree DIRECT LDLon 08-18-2022 Cholesterol in LDL [Mass/Vol] 50 mg/dL Normal [facility] Comment on above: Performed By: #### T HYLC #### [facility] [address] [place] [address] Dr. Benito Dupree DLDL NORMAL SEE BELOW Normal [facility] Comment on above: Result Comment: <100 mg/dl OPTIMAL 100 - 129 mg/dl NEAR OR ABOVE OPTIMAL 130 - 159 mg/dl BORDERLINE HIGH 160 - 189 mg/dl HIGH >190 mg/dl VERY HIGH Performed By: #### T HYLC #### [facility] [address] [place] [address] Dr. Benito Dupree GLYCOHEMOGLOBIN A1Con 2021 ADA RECOMMENDATION SEE BELOW Normal [facility] Comment on above: Result Comment: ADA RECOMMENDED LIMIT 4.0 - 6.0 ADA THERAPEUTIC TARGET < 7.0 ACTION SUGGESTED > 7.0 Performed By: #### A 1C #### [facility] [address] [place] [address] Dr. Benito Dupree Glucose [Mass/Vol] 332 mg/dL Normal [facility] Comment on above: Performed By: #### A 1C #### [facility] [address] [place] [address] Dr. Benito Dupree HbA1c (Bld) [Mass fraction] 13.2 % Critically high 4.5-6.2 [facility] Comment on above: Performed By: #### A 1C #### [facility] [address] [address] [address] Benito Dupree IRONon 08-18-2022 Iron [Mass/Vol] 53.0 ug/dL Normal 50.0-170.0 [facility] Comment on above: Performed By: #### I NFLUAB #### [facility] [address] [address] [address] Benito Dupree LIPID PROFILEon 08-18-2022 CHOL-HDL RATIO NORM SEE BELOW Normal [facility] Comment on above: Result Comment: 3.3 - 4.4 LOW RISK 4.4 - 7.1 AVERAGE RISK 7.1 - 11.0 MODERATE RISK >11.0 HIGH RISK Performed By: #### T HYLC #### [facility] [address] [place] [address] Dr. Benito Dupree Cholesterol [Mass/Vol] 260 mg/dL Critically high <=200 [facility] Comment on above: Performed By: #### T HYLC #### [facility] [address] [address] [address] Benito Dupree Cholesterol in HDL [Mass/Vol] 23 mg/dL Critically low 40-60 [facility] Comment on above: Performed By: #### T HYLC #### [facility] [address] [place] [address] Dr. Benito Dupree Cholesterol.total/Lisandra sterol in HDL [Mass ratio] 11.3 {ratio} Normal [facility] Comment on above: Performed By: #### T HYLC #### [facility] [address] [address] [address] Benito Dupree HDL NORMAL > or = 60 mg/dl - LOW CARDIOVASCULAR RISK <40 mg/dl - HIGH CARDIOVASCULAR RISK Normal [facility] Comment on above: Performed By: #### T HYLC #### [facility] [address] [address] [address] Benito Dupree Triglyceride [Mass/Vol] 1711 mg/dL Critically high <=150 [facility] Comment on above: Performed By: #### T HYLC #### [facility] [address] [address] [address] Benito Dupree VLDL CALC 342.2 mg/dL Normal [facility] Comment on above: Performed By: #### T HYLC #### [facility] [address] [address] [address] Benito Dupree PROF 14(COMP METB)on 022 Albumin [Mass/Vol] 3.2 g/dL Critically low 3.4-5.0 [facility] Comment on above: Performed By: #### T HYLC #### [facility] [address] [place] [address] Dr. Benito Dupree Albumin/Globulin [Mass ratio] 0.7 {ratio} Normal [facility] Comment on above: Performed By: #### T HYLC #### [facility] [address] [place] [address] Dr. Benito Dupree ALP [Catalytic activity/Vol] 92 U/L Normal 46-116 [facility] Comment on above: Performed By: #### T HYLC #### [facility] [address] [place] [address] Dr. Benito Dupree ALT [Catalytic activity/Vol] 41 U/L Normal 14-59 [facility] Comment on above: Performed By: #### T HYLC #### [facility] [address] [place] [address] Dr. Benito Dupree Anion gap [Moles/Vol] 14.1 mmol/L Normal [facility] Comment on above: Performed By: #### T HYLC #### [facility] [address] [place] [address] Dr. Benito Dupree AST [Catalytic activity/Vol] 16 U/L Normal 15-37 [facility] Comment on above: Performed By: #### T HYLC #### [facility] [address] [address] [address] Benito Dupree Bilirubin [Mass/Vol] 0.9 mg/dL Normal 0.2-1.0 [facility] Comment on above: Performed By: #### T HYLC #### [facility] [address] [address] [address] Benito Dupree Calcium [Mass/Vol] 9.1 mg/dL Normal 8.5-10.1 [facility] Comment on above: Performed By: #### T HYLC #### [facility] [address] [address] [address] Benito Dupree Chloride [Moles/Vol] 97 mmol/L Critically low 98-107 [facility] Comment on above: Performed By: #### T HYLC #### [facility] [address] [address] [address] Benito Dupree CO2 [Moles/Vol] 24.9 mmol/L Normal 21.0-32.0 [facility] Comment on above: Performed By: #### T HYLC #### [facility] [address] [place] [address] Dr. Benito Dupree Creatinine [Mass/Vol] 0.67 mg/dL Normal 0.55-1.02 [facility] Comment on above: Performed By: #### T HYLC #### [facility] [address] [place] [address] Dr. Benito Dupree EGFR-AF GREENLANDIC >60 Normal >=60 [facility] Comment on above: Performed By: #### T HYLC #### [facility] [address] [place] [address] Dr. Benito Dupree EGFR-NON AF GREENLANDIC >60 Normal >=60 [facility] Comment on above: Performed By: #### T HYLC #### [facility] [address] [place] [address] Dr. Benito Dupree Globulin (S) [Mass/Vol] 4.6 g/dL Normal [facility] Comment on above: Performed By: #### T HYLC #### [facility] [address] [place] [address] Dr. Benito Dupree Glucose [Mass/Vol] 402 mg/dL Critically high 74-106 [facility] Comment on above: Performed By: #### T HYLC #### [facility] [address] [address] [address] Benito Dupree Potassium [Moles/Vol] 4.0 mmol/L Normal 3.5-5.1 [facility] Comment on above: Performed By: #### T HYLC #### [facility] [address] [place] [address] Dr. Benito Dupree Protein [Mass/Vol] 7.8 g/dL Normal 6.4-8.2 [facility] Comment on above: Performed By: #### T HYLC #### [facility] [address] [address] [address] Benito Dupree Sodium [Moles/Vol] 132 mmol/L Critically low 136-145 [facility] Comment on above: Performed By: #### T HYLC #### [facility] [address] [place] [address] Dr. Benito Dupree Urea nitrogen [Mass/Vol] 10.0 mg/dL Normal 7.0-18.0 [facility] Comment on above: Performed By: #### T HYLC #### [facility] [address] [place] [address] Dr. Benito Dupree Urea nitrogen/Creatinine [Mass ratio] 14.9 mg/mg Normal [facility] Comment on above: Performed By: #### T HYLC #### [facility] [address] [place] [address] Dr. Benito Dupree TSHon 08-18-2022 TSH 3.676 uIU/mL Normal 0.358-3.740 [facility] Comment on above: Performed By: #### T HYLC #### [facility] [address] [place] [address] Dr. Benito Dupree VITAMIN D 25 OHon 08-18-2022 VIT D 25-OH 13.9 ng/mL Normal [facility] Comment on above: Performed By: #### I NFLUAB #### [facility] [address] [place] [address] Dr. Benito Dupree VIT D RANGES SEE BELOW Normal [facility] Comment on above: Result Comment: <20 ng/mL Vit D deficient 20 - <30 ng/mL Vit D insufficient 30 - 100 ng/mL Vit D sufficient >100 ng/mL Potential Toxicity Performed By: #### I NFLUAB #### [facility] [address] [place] [address] Dr. Benito Dupree AMYLASEon 06-01-2022 Amylase [Catalytic activity/Vol] 29 U/L Normal 25-115 [facility] Comment on above: Performed By: #### I NFLUAB #### [facility] [address] [place] [address] Dr. Benito Dupree CBC AUTO DIFFon 06-01-2022 BASO # 0.1 103/ul Normal 0.0-0.1 [facility] Comment on above: Performed By: #### I NFLUAB #### [facility] [address] [place] [address] Dr. Benito Dupree Basophils/100 WBC (Bld) 0.5 % Normal 0.2-2.0 [facility] Comment on above: Performed By: #### I NFLUAB #### [facility] [address] [place] [address] Dr. Benito Dupree EO # 0.3 103/ul Normal 0.0-0.7 [facility] Comment on above: Performed By: #### I NFLUAB #### [facility] [address] [place] [address] Dr. Benito Dupree Eosinophils/100 WBC (Bld) 2.0 % Normal 0.9-7.0 [facility] Comment on above: Performed By: #### I NFLUAB #### [facility] [address] [place] [address] Dr. Benito Dupree Erythrocyte distribution width (RBC) [Ratio] 15.3 % Critically high 11.0-15.0 [facility] Comment on above: Performed By: #### I NFLUAB #### [facility] [address] [place] [address] Dr. Benito Dupree Hematocrit (Bld) [Volume fraction] 41.5 % Normal 36.0-48.0 [facility] Comment on above: Performed By: #### I NFLUAB #### [facility] [address] [address] [address] Benito Dupree Hemoglobin (Bld) [Mass/Vol] 12.7 g/dL Normal 12.0-16.0 [facility] Comment on above: Performed By: #### I NFLUAB #### [facility] [address] [place] [address] Dr. Benito Dupree IG # 0.06 10e3/ul Critically high 0.00-0.03 [facility] Comment on above: Performed By: #### I NFLUAB #### [facility] [address] [place] [address] Dr. Benito Dupree IG % 0.4 % Normal 0.0-0.5 [facility] Comment on above: Performed By: #### I NFLUAB #### [facility] [address] [place] [address] Dr. Benito Dupree LYMPH # 1.9 103/ul Normal 1.2-3.8 [facility] Comment on above: Performed By: #### I NFLUAB #### [facility] [address] [place] [address] Dr. Benito Dupree Lymphocytes/100 WBC (Bld) 13.9 % Critically low 20.5-60.0 [facility] Comment on above: Performed By: #### I NFLUAB #### [facility] [address] [place] [address] Dr. Benito Dupree MANUAL DIFF REQ NO Normal [facility] Comment on above: Performed By: #### I NFLUAB #### [facility] [address] [place] [address] Dr. Benito Dupree MCH (RBC) [Entitic mass] 24.7 pg Critically low 26.7-34.[address] [facility] Comment on above: Performed By: #### I NFLUAB #### [facility] [address] [place] [address] Dr. Benito Dupree MCHC (RBC) [Mass/Vol] 30.6 g/dL Normal 29.9-35.[address] [facility] Comment on above: Performed By: #### I NFLUAB #### [facility] [address] [address] [address] Benito Dupree MCV (RBC) [Entitic vol] 80.6 fL Critically low 81.0-99. 0 [facility] Comment on above: Performed By: #### I NFLUAB #### [facility] [address] [place] [address] Dr. Benito Dupree MONO # 0.5 103/ul Normal 0.3-0.8 [facility] Comment on above: Performed By: #### I NFLUAB #### [facility] [address] [place] [address] Dr. Benito Dupree Monocytes/100 WBC (Bld) 4.0 % Normal 1.7-12.0 [facility] Comment on above: Performed By: #### I NFLUAB #### [facility] [address] [place] [address] Dr. Benito Dupree NEUT # 10.6 103/ul Critically high 1.4-6.5 [facility] Comment on above: Performed By: #### I NFLUAB #### [facility] [address] [place] [address] Dr. Benito Dupree Neutrophils/100 WBC (Bld) 79.2 % Critically high 43.0-75.0 [facility] Comment on above: Performed By: #### I NFLUAB #### [facility] [address] [place] [address] Dr. Benito Dupree Platelet mean volume (Bld) [Entitic vol] 9.3 fL Critically low 9.5-13.5 [facility] Comment on above: Performed By: #### I NFLUAB #### [facility] [address] [place] [address] Dr. Benito Dupree PLT 391 103/ul Normal 150-[address] [facility] Comment on above: Performed By: #### I NFLUAB #### [facility] [address] [place] [address] Dr. Benito Dupree RBC 5.15 106/ul Normal 4.20-5.40 [facility] Comment on above: Performed By: #### I NFLUAB #### [facility] [address] [address] [address] Benito Dupree WBC 13.4 103/ul Critically high 4.0-11.0 [facility] Comment on above: Performed By: #### I NFLUAB #### [facility] [address] [address] [address] ABD/PELV W CONon 06-01-[address] ABD/PELV W CON EXAMINATION: CT ABD/PELV [...] WESTLEY JHA Date: 2022-06-01 14:[address] [facility] ER URINE PROFILEon 2 Bilirubin Ql (U) Negative Normal NEGATIVE [facility] Comment on above: Performed By: #### U MICRO, ERUR #### [facility] [address] [address] [address] Benito Dupree Clarity (U) SL CLOUDY Abnormal CLEAR [facility] Comment on above: Performed By: #### U MICRO, ERUR #### [facility] [address] [address] [address] Benito Dupree Color (U) YELLOW Normal YELLOW [facility] Comment on above: Performed By: #### U MICRO, ERUR #### [facility] [address] [address] [address] Benito MALHOTRAAHD A micrscopic examination will be performed if indicated. Normal [facility] Comment on above: Performed By: #### U MICRO, ERUR #### [facility] [address] [address] [address] Benito Dupree Glucose Ql (U) Negative Normal NEGATIVE [facility] Comment on above: Performed By: #### U MICRO, ERUR #### [facility] [address] [address] [address] Benito Dupree Hemoglobin Ql (U) LARGE Abnormal NEGATIVE [facility] Comment on above: Performed By: #### U MICRO, ERUR #### [facility] [address] [address] [address] Benito Dupree Ketones Ql (U) Negative Normal NEGATIVE [facility] Comment on above: Performed By: #### U MICRO, ERUR #### [facility] [address] [address] [address] Benito Dupree LEUKOCYTES Negative Normal NEGATIVE [facility] Comment on above: Performed By: #### U MICRO, ERUR #### [facility] [address] [address] [address] Benito Dupree Nitrite Ql (U) Negative Normal NEGATIVE [facility] Comment on above: Performed By: #### U MICRO, ERUR #### [facility] [address] [address] [address] Benito Dupree pH (U) 5.5 [pH] Normal 5-[address] [facility] Comment on above: Performed By: #### U MICRO, ERUR #### [facility] [address] [address] [address] Benito Dupree SPEC GRAVITY 1.010 Normal 1.005-<=1.02 5 [facility] Comment on above: Performed By: #### U MICRO, ERUR #### [facility] [address] [place] [address] Dr. Benito Dupree UA PROTEIN TRACE Normal NEGATIVE/ TRACE [facility] Comment on above: Performed By: #### U MICRO, ERUR #### [facility] [address] [place] [address] Dr. Benito Dupree UR MICRO IND INDICATED Normal [facility] Comment on above: Performed By: #### U MICRO, ERUR #### [facility] [address] [address] [address] Benito Dupree Urobilinogen Qn (U) 1.0 {Tuyet'U}/dL Normal 0.2 - 1. 0 [facility] Comment on above: Performed By: #### U MICRO, ERUR #### [facility] [address] [place] [address] Dr. Benito Dupree LACTATE/LACTIC ACIDon 2021 Lactate [Moles/Vol] 1.1 mmol/L Normal 0.4-1.9 [facility] Comment on above: Performed By: #### L ACT #### [facility] [address] [place] [address] Dr. Benito Dupree LIPASEon 06-01-2022 Lipase [Catalytic activity/Vol] 111.0 U/L Normal 73.0-393.0 [facility] Comment on above: Performed By: #### I NFLUAB #### [facility] [address] [place] [address] Dr. Benito Dupree PREG HCG QUALon 06-01-2022 , QUAL Negative Normal NEGATIVE [facility] Comment on above: Performed By: #### P REG #### [facility] [address] [place] [address] Dr. Benito Dupree PROF 14(COMP METB)on 022 Albumin [Mass/Vol] 3.6 g/dL Normal 3.4-5.0 [facility] Comment on above: Performed By: #### I NFLUAB #### [facility] [address] [place] [address] Dr. Benito Dupree Albumin/Globulin [Mass ratio] 0.7 {ratio} Normal [facility] Comment on above: Performed By: #### I NFLUAB #### [facility] [address] [place] [address] Dr. Benito Dupree ALP [Catalytic activity/Vol] 90 U/L Normal 46-116 [facility] Comment on above: Performed By: #### I NFLUAB #### [facility] [address] [place] [address] Dr. Benito Dupree ALT [Catalytic activity/Vol] 39 U/L Normal 14-59 [facility] Comment on above: Performed By: #### I NFLUAB #### [facility] [address] [place] [address] Dr. Benito Dupree Anion gap [Moles/Vol] 13.0 mmol/L Normal [facility] Comment on above: Performed By: #### I NFLUAB #### [facility] [address] [place] [address] Dr. Benito Dupree AST [Catalytic activity/Vol] 25 U/L Normal 15-37 [facility] Comment on above: Performed By: #### I NFLUAB #### [facility] [address] [place] [address] Dr. Benito Dupree Bilirubin [Mass/Vol] 1.1 mg/dL Critically high 0.2-1.0 [facility] Comment on above: Performed By: #### I NFLUAB #### [facility] [address] [place] [address] Dr. Benito Dupree Calcium [Mass/Vol] 9.4 mg/dL Normal 8.5-10.1 [facility] Comment on above: Performed By: #### I NFLUAB #### [facility] [address] [place] [address] Dr. Benito Dupree Chloride [Moles/Vol] 99 mmol/L Normal 98-107 [facility] Comment on above: Performed By: #### I NFLUAB #### [facility] [address] [place] [address] Dr. Benito Dupree CO2 [Moles/Vol] 27.3 mmol/L Normal 21.0-32.0 [facility] Comment on above: Performed By: #### I NFLUAB #### [facility] [address] [place] [address] Dr. Benito Dupree Creatinine [Mass/Vol] 0.87 mg/dL Normal 0.55-1.02 [facility] Comment on above: Performed By: #### I NFLUAB #### [facility] [address] [place] [address] Dr. Benito Dupree EGFR-AF GREENLANDIC >60 Normal >=60 [facility] Comment on above: Performed By: #### I NFLUAB #### [facility] [address] [place] [address] Dr. Benito Dupree EGFR-NON AF GREENLANDIC >60 Normal >=60 [facility] Comment on above: Performed By: #### I NFLUAB #### [facility] [address] [place] [address] Dr. Benito Dupree Globulin (S) [Mass/Vol] 4.8 g/dL Normal [facility] Comment on above: Performed By: #### I NFLUAB #### [facility] [address] [place] [address] Dr. Benito Dupree Glucose [Mass/Vol] 218 mg/dL Critically high 74-106 [facility] Comment on above: Performed By: #### I NFLUAB #### [facility] [address] [place] [address] Dr. Benito Dupree Potassium [Moles/Vol] 4.1 mmol/L Normal 3.5-5.1 [facility] Comment on above: Performed By: #### I NFLUAB #### [facility] [address] [place] [address] Dr. Benito Dupree Protein [Mass/Vol] 8.4 g/dL Critically high 6.4-8.2 [facility] Comment on above: Performed By: #### I NFLUAB #### [facility] [address] [place] [address] Dr. Benito Dupree Sodium [Moles/Vol] 135 mmol/L Critically low 136-[address] [facility] Comment on above: Performed By: #### I NFLUAB #### [facility] [address] [place] [address] Dr. Benito Dupree Urea nitrogen [Mass/Vol] 15.0 mg/dL Normal 7.0-18.[address] [facility] Comment on above: Performed By: #### I NFLUAB #### [facility] [address] [place] [address] Dr. Benito Dupree Urea nitrogen/Creatinine [Mass ratio] 17.2 mg/mg Normal [facility] Comment on above: Performed By: #### I NFLUAB #### [facility] [address] [place] [address] Dr. Benito Dupree URINE MICROSCOPIC ONLYon BACTERIA TRACE Abnormal NONE SEEN [facility] Comment on above: Performed By: #### U MICRO, ERUR #### [facility] [address] [place] [address] Dr. Benito Dupree Bacteria identified Cx Nom (U) NOT INDICATED Normal [facility] Comment on above: Performed By: #### U MICRO, ERUR #### [facility] [address] [place] [address] Dr. Benito Dupree CAST NONE SEEN Normal NONE SEEN [facility] Comment on above: Performed By: #### U MICRO, ERUR #### [facility] [address] [place] [address] Dr. Benito Dupree Crystals LM Nom (Urine sed) NONE SEEN Normal NONE SEEN [facility] Comment on above: Performed By: #### U MICRO, ERUR #### [facility] [address] [place] [address] Dr. Benito Dupree Epithelial cells LM Ql (Urine sed) MODERATE Abnormal NONE SEEN /RARE [facility] Comment on above: Performed By: #### U MICRO, ERUR #### [facility] [address] [place] [address] Dr. Benito Dupree MUCOUS TRACE Abnormal NONE SEEN [facility] Comment on above: Performed By: #### U MICRO, ERUR #### [facility] [address] [address] [address] Benito Dupree RBC 2-5 Abnormal 0-[address] [facility] Comment on above: Performed By: #### U MICRO, ERUR #### [facility] [address] [address] [address] Benito Dupree WBC 0-2 Abnormal NONE SEEN [facility] Comment on above: Performed By: #### U MICRO, ERUR #### [facility] [address] [address] [address] Benito Dupree XR hand RT min 3V*on 022 XR hand RT min 3V* [facility] [employer] [facility] [employer] Other XR hand RT min 3V* [facility] [employer] Other XR hand RT min 3V* [address] [place] [address] [employer] Other XR hand RT min 3V* [place] [address] [employer] Other XR hand RT min 3V* XRay Report [employer] Other XR hand RT min 3V* Signed [employer] Other XR hand RT min 3V* Patient: Kyung Paul MR#: [id number] [employer] Other XR hand RT min 3V* : 1990 Acct:[id number] [employer] Other XR hand RT min 3V* Age/Sex: 31 / F ADM Date: 03/22/22 [employer] Other XR hand RT min 3V* Loc: XDUCLY Room: Type: [facility] [employer] Other XR hand RT min 3V* Attending Dr: Monique SANDOVAL [employer] Other XR hand RT min 3V* Ordering Provider: LORI Dias [employer] Other XR hand RT min 3V* Date of Service: 03/22/22 [employer] Other XR hand RT min 3V* XR/XR hand RT min 3V*: Finger pain, right [employer] Other XR hand RT min 3V* Copies to: LORI Dias [employer] Other XR hand RT min 3V* 3 viewsRIGHT hand plain film [employer] Other XR hand RT min 3V* COMPARISON:None N [employer] Other XR hand RT min 3V* HISTORY:Fell going upstairs. RIGHT ring finger injury. [employer] Other XR hand RT min 3V* No fracture, dislocation or focal soft tissue abnormality seen. [employer] Other XR hand RT min 3V* XR/XR hand RT min 3V* [employer] Other XR hand RT min 3V* IMPRESSION:No acute findings [employer] Other XR hand RT min 3V* Impression dictated by: Ta Galvan M.D.03/22/2022 4:42 PM [employer] Other XR hand RT min 3V* Dictation Location: [place] [address] [employer] Other XR hand RT min 3V* Transcribed By: DANIELLE 03/22/22 [facility] [employer] Other XR hand RT min 3V* Dictated By: Ta Galvan DO 03/22/221641 [employer] Other XR hand RT min 3V* Signed By: [employer] Other XR hand RT min 3V* 03/22/22 1642 [facility] [employer] Other Vital Signs Date Time Vital Sign Value Performing Clinician Facility 05-16-2024 15:25-0400 Diastolic blood pressure 70 mm[Hg] 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 05-16-2024 15:25-0400 Heart rate 80 /min 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 05-16-2024 15:25-0400 Respiratory rate 22 /min [employer] MANAGEMENT DEVELOPER[employer] Monique Emmaunel Work Phone: [facility] 05-16-2024 15:25-0400 SaO2% (BldA) [Mass fraction] 94 % [employer]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 05-16-2024 15:25-0400 Systolic blood pressure 124 mm[Hg] [employer]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 05-16-2024 12:57-0400 Body temperature 98.6 [degF] [employer]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 05-16-2024 12:57-0400 Inhaled oxygen flow rate 6 L/min [employer]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 05-16-2024 10:38-0400 Body mass index (BMI) [Ratio] 56.5 kg/m2 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 05-16-2024 10:31-0400 Body height 157.48 cm [employer]ENTITY MANAGEMENT DEVELOPER[employer]C Monique Whitleymer Work Phone: [facility] 05-16-2024 10:31-0400 Body weight 140.16 kg [employer]ENTITY MANAGEMENT DEVELOPER-C Monique Whitleymer Work Phone: [facility] 04-25-2024 13:27-0400 Diastolic blood pressure 85 mm[Hg] Pato Koehler [facility] 04-25-2024 13:27-0400 Heart rate 64 /min Pato Koehler [facility] 04-25-2024 13:27-0400 Mean blood pressure 103 mm[Hg] Pato Koehler [facility] 04-25-2024 13:27-0400 Systolic blood pressure 139 mm[Hg] aPto Koehler [facility] 04-25-2024 13:26-0400 Heart rate 65 /min Pato Koehler [facility] 04-25-2024 13:26-0400 Respiratory rate 16 /min Pato Koehler [facility] 04-25-2024 13:26-0400 SaO2% (BldA) [Mass fraction] 93 % Pato Koehler [facility] 04-25-2024 13:26-0400 Blood Pressure Location Pato Koehler [facility] 04-25-2024 13:26-0400 Body temperature 98.42 [degF] Pato Koehler [facility] 04-25-2024 13:26-0400 Diastolic blood pressure 83 mm[Hg] Pato Koehler [facility] 04-25-2024 13:26-0400 Mean blood pressure 100 mm[Hg] Pato Koehler [facility] 04-25-2024 13:26-0400 Systolic blood pressure 135 mm[Hg] Pato Koehler [facility] 02-27-2024 17:36-0400 Body height 154.94 cm [employer]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 02-27-2024 17:36-0400 Body mass index (BMI) [Ratio] 58.4 kg/m2 [employer]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 02-27-2024 17:36-0400 Body temperature 97.7 [degF] ID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 02-27-2024 17:36-0400 Body weight 140.38 kg ID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 02-27-2024 17:36-0400 Heart rate 87 /min [employer]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 02-27-2024 17:36-0400 Respiratory rate 18 /min ID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 02-27-2024 17:36-0400 SaO2% (BldA) [Mass fraction] 97 % [employer]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 03-22-2022 16:45-0400 Body height 154.94 cm Monique Dudley Other [employer] Other 03-22-2022 16:45-0400 Body mass index (BMI) [Ratio] 58.38 kg/m2 Monique Dudley Other [employer] Other 03-22-2022 16:45-0400 Body temperature 97.9 [degF] Monique Dudley Other [employer] Other 03-22-2022 16:45-0400 Body weight 140.16 kg Monique Dudley Other [employer] Other 03-22-2022 16:45-0400 Diastolic blood pressure 93 mm[Hg] Monique Suemond Other [employer] Other 03-22-2022 16:45-0400 Respiratory rate 20 /min Monique Dudley Other [employer] Other 03-22-2022 16:45-0400 SaO2% (BldA) [Mass fraction] 98 % Monique Dudley Other [employer] Other 03-22-2022 16:45-0400 Systolic blood pressure 154 mm[Hg] Monique Dudley Other [employer] Other Encounters Encounter Date Encounter Type Care Provider Facility Start: 05-16-2024 End: 05-16-2024 Admission to same day surgery center IDENTITY MANAGEMENT DEVELOPER-C Monique Emmanuel Work Phone: [facility] Start: 05-16-2024 End: 05-16-2024 ambulatory IDENTITY MANAGEMENT DEVELOPER-C Monique Emmanuel Work Phone: [facility] Work Phone: Start: 05-03-2024 End: 05-03-2024 ambulatory PATO KOEHLER Not Available Start: 04-25-2024 End: 04-26-2024 ambulatory Pato Koehler Facility:[facility] Start: 04-25-2024 End: 04-25-2024 Patient encounter procedure Pato Koehler [facility] Start: 04-16-2024 End: 05-10-2024 Pre-admission assessment Pato Koehler [facility] Start: 04-12-2024 End: 04-12-2024 ambulatory PATO KOEHLER Not Available Start: 03-29-2024 End: 03-29-2024 ambulatory PATO KOEHLER Not Available Start: 02-27-2024 End: 02-27-2024 ambulatory IDENTITY MANAGEMENT DEVELOPER-C Monique Emmanuel Work Phone: [facility] Work Phone: Start: 02-27-2024 End: 02-27-2024 Patient encounter procedure IDENTITY MANAGEMENT DEVELOPER-C Monique Emmanuel Work Phone: [facility] Work Phone: Start: 04-27-2023 [...] medical examination without abnormal findings MONIQUE EMMANUEL [facility] Start: 08-18-2022 End: 08-19-2022 ambulatory MONIQUE EMMANUEL Facility:[facility] Start: 08-18-2022 End: 08-19-2022 Encounter for general adult medical examination without abnormal findings MONIQUE EMMANUEL Facility:[facility] Start: 06-01-2022 End: 06-01-[address] WESTLEY JHA Facility:[facility] Start: 03-22-2022 End: 03-22-2022 ambulatory Monique Dudley Other [employer] Other Start: 03-22-2022 Office outpatient vi sit 15 minutes Monique Dudley [facility] Procedures Date Procedure Procedure Detail Performing Clinician Start: 05-16-2024 Debridement IDENTITY MANAGEMENT DEVELOPER-C Shruti Emmanuel Work Phone: Start: 05-16-2024 X-ray of left foot IDENTITY MANAGEMENT DEVELOPER-C Monique Emmanuel Work Phone: Start: 02-27-2024 Plain X-ray of right shoulder IDENTITY MANAGEMENT DEVELOPER-C Monique Emmanuel Work Phone: Cholecystectomy Pato pulliam Plan of Treatment Date Care Activity Detail Author Start: 05-16-2024 [facility] Start: 05-16-2024 [facility] Patient Education Know your Meds [facility] Work Phone: Payers Date Payer Category Payer Self-pay [id number] 1990 Unknown [id number] 2.16.84 [id number] 1988 Unknown [id number] 2.16.84 [id number] 1988 Unknown [id number] 2.16.84 [id number] 1988 Unknown [id number] 2.16.84 0.1.088128.3.579.2.593 1988 Unknown [id number] 2.16.84 [id number] 1988 Unknown [id number] 2.16.84 0.1.404590.3.579.2.593 1988 Unknown [id number] 2.16.84 0.1.975072.3.579.2.593 1988 Unknown [id number] 2.16.84 0.1.399082.3.579.2.593 1988 Unknown [id number] 2.16.8 40.1.252469.3.579.2.727 1988 Unknown [id number] 2.16.84 0.1.758000.3.579.2.1259 1988 Unknown [id number] 2.16.84 0.1.571574.3.579.2.1259 1988 Unknown [id number] 2.16.84 [id number] 1961 [employer] Blue Shield [id number] [id number] Unknown [id number] 2.16.8 [id number] Unknown [id number] 2.16.8 [id number] Social History Date Type Detail Facility Unknown if ever smoked [employer] [facility] [employer] Other Sex Assigned At [facility] Start: 10-25-2018 End: 05-16-2024 Tobacco smoking status NHIS Never smoked tobacco (finding) [facility] Start: 1990 Sex Assigned At Female [facility] Tobacco smoking status No Smokin g Status Entered [facility] Goals Date Patient Goal Desired Activity /State Functional Status Date Assessment Result Facility 04-25-2024 Functional Status No [facility] Evaluation note 03-22-2022 Note Date & Type [...] no improvement in 5 to 7 days. [facility] [employer] Other Evaluation + Plan note Note Date & Type Note Facility Evaluation + Plan note Future Appointments Appointment Date:05/09/2024 07:30:00 AM Scheduled Provider: Location:[facility] Appointment Type:Surgery [facility] Evaluation note Note Date & Type Note Facility Evaluation note No assessment information availa ble [facility] Work Phone: History general Narrative - Reported Note Date & Type Note Facility History general Narrative - Reported Type Medical History Acquired hypothyroidism Medical History vitamin D deficiency Surgical History cholecystectomy Hospitalization History No Hospitalization histo ry information [facility] [employer] Other Hospital course Narrative Note Date & Type Note Facility Hospital course Narrative No data available for this section [facility] Discharge instructions Note Date & Type Note Facility Hospital Discharge instructions No data available for this section [facility] Discharge instructions Note Date & Type Note Facility Hospital Discharge instructions Additional Instructions DISCHARGE INSTRUCTIONS FOR PROCEDURE Podiatry, Dr. Koehler -If you need pain pills, start before pain becomes intense. Antibiotics and pain pills are frequently less upsetting to your stomach if you take them with food such as crackers or bread. -If you having excessive or persistent pain, swelling, bleeding, nausea, vomiting, or any other problems, you should first call your surgeon for advice. If you are unable to contact your surgeon, seek help from a hospital emergency room. If you were given drugs to make you drowsy and or pain medication, follow these instructions: -You should spend the remainder of the day and evening resting. -You should not attempt to walk, including going to the bathroom, without assistance. You may be lightheaded from the medications you received. -Eat light today to avoid nausea. You should be able to return to your normal diet 24 to 36 hours after surgery. -For the next 24 hours you should not consume alcohol, attempt to drive, use any power tools, sign important documents or make important personal or business decisions. After that do so only if you feel perfectly normal and alert. -Follow carefully any verbal or written instructions your surgeon may have given you. SURGEON S WRITTEN INSTRUCTIONS -Keep bandage clean and dry and DO NOT REMOVE -Keep foot elevated -Apply ice to top of ankle, one hour off, until first office visit -No weight bearing to Post-operative foot -Take pain medications as directed -Do not be alarmed if you notice slight bleeding on the bandage, this is normal. -Report any increase in swelling to Dr. Koehler immediately -Resume regular diet Call the office if you develop: -Persistent bleeding -Temperature above 100 degrees Fahrenheit. 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 Additional Source Comments REASON FOR VISIT (unrecogniz ed section and content) INJURY TO RIGHT RING FINGER INFORMATION SOURCE (unrecogn ized section and content) DATE CREATED AUTHOR 05/06/2023 [facility] DATE CREATED AUTHOR AUTHOR'S ORGANIZ ATION 04/26/2024 [facility] DATE CREATED AUTHOR AUTHOR'S ORGANIZ ATION 05/05/2024 [facility] DATE CREATED AUTHOR AUTHOR'S ORGANIZ ATION 05/20/2024 [facility] Care Teams (unrecognized sec tion and content) [...] Care Provider Active Start: February 27, 2024 Team Status: Inactive Member Role Status Dates LORI Alvarez Primary Care Provider Active Start: May 16, 2024 End: May 16, 2024 Pato Koehler DPM Attending Provider Active Start: May 16, 2024 End: May 16, 2024 Goals (unrecognized section and content) Goals [...] BE BASED ON THE PRIMARY CLINICAL RECORDS. [facility]. provides no warranty or guarantee of the accuracy or completeness of information in this document.
--- NOTE | 2024-05-24 18:13 | ED.LOWEXI1 ---
HPI HPI - Extremity Injury (Lower) General Chief Complaint: Extremity Injury, Lower Stated Complaint: surgery last we ankle, fell today and heard pop Time Seen by Provider: 05/24/24 16:35 Source: patient Mode of arrival: Wheelchair Limitations: no limitations History of Present Illness HPI Narrative: Patient is a 33-year-old female who presents to the emergency department with left ankle pain. She states that she just had recent surgery with Dr. Koehler for podiatry for an excessive navicular bone. She is in a short posterior OCL splint at time of my evaluation from her surgery. She states that she twisted her right ankle although it is not painful which caused her to fall on her left side and states that she felt a pop in the left ankle, most significant pain in the medial aspect. No medications taken prior to arrival. She ambulates at home currently with a knee scooter due to her recent surgery. She is on [place] for pain. She is not concerned for . She had no other associated injuries. Related Data Previous Rx's ?Medication ?Instructions ?Recorded cephalexin 500 mg capsule 500 mg PO Q8H 10 days #30 caps 03/14/24 ketorolac 10 mg tablet 10 mg PO TID PRN pain #10 tabs 03/14/24 ketorolac 10 mg tablet 10 mg PO TID PRN pain #10 tabs 05/24/24 Allergies Allergy/AdvReac Type Severity Reaction Status Date / Time Sulfa (Sulfonamide Allergy Severe Verified 03/14/24 16:57 Antibiotics) Opioid HPI Opioid Management Most Recent Pain and Opioid Data: Last Pain Scale 8 03/14/24 17:30 Review of Systems ROS Constitutional Denies: fever or chills Ears, nose, mouth, and throat Denies: throat pain or nasal congestion Respiratory Denies: shortness of breath Gastrointestinal Denies: nausea or vomiting Musculoskeletal Reports: extremity pain Integumentary/Breast Denies: rash Endocrine Denies: excessive urination Hematologic/Lymphatic Denies: easy bruising or easy bleeding Exam Narrative Exam Narrative: Gen.: Awake, alert, in no distress Head: Normocephalic, atraumatic ENT: Moist mucous membranes Respiratory: No respiratory distress Extremities: Moves extremities equally, Short posterior OCL splint to the left lower extremity with mild tenderness of the left medial ankle, patient is able to flex and extend her toes, normal capillary refill. No bony point tenderness of the left knee or proximal tibia. Psych: Normal mood and affect Neuro: No focal neuro deficit Skin: Warm, dry, intact Constitutional Vital Signs, click to edit/add: Last Vital Signs Temp 97.9 F 05/24/24 16:25 Pulse 84 05/24/24 16:25 Resp 20 05/24/24 16:25 BP 157/100 H 05/24/24 16:25 Pulse Ox 97 05/24/24 16:25 Course Vital Signs Vital signs: Vital Signs Temperature 97.9 F 05/24/24 16:25 Pulse Rate 84 05/24/24 16:25 Respiratory Rate 20 05/24/24 16:25 Blood Pressure 157/100 H 05/24/24 16:25 Pulse Oximetry 97 05/24/24 16:25 Temperature 97.9 F 05/24/24 16:25 Pulse Rate 84 05/24/24 16:25 Respiratory Rate 20 05/24/24 16:25 Blood Pressure 157/100 H 05/24/24 16:25 Pulse Oximetry 97 05/24/24 16:25 MDM - Extremity Injury (Lower) MDM Narrative Medical decision making narrative: X-rays of the foot and ankle are unremarkable. Patient is already in a splint and neurovascularly intact. She was given oral Toradol in the ER and discharged home with a prescription for this. She was encouraged to elevate and ice to the ankle. Follow-up with PCP and podiatry and return to the ER if symptoms change or worsen SUPERVISED APC VISIT, PHYSICIAN ATTESTATION: Based on the medical record the care appears appropriate. ? Medical Records Attestation: I reviewed the patient's medical records. Imaging Data xr ankle: Attestation: I have reviewed the pertinent imaging results. Radiologist's impression: ITS Impressions Ankle X-Ray 05/24/24 16:35 IMPRESSION: No definite radiographic evidence for acute fracture or malalignment. Electronically authenticated by: HARSHAL MORENO Date: 05/24/2024 17:58 Foot X-Ray 05/24/24 16:35 IMPRESSION: Images are obtained without the left foot in a splint which obscures bony detail. No definite acute fracture or malalignment is seen. Electronically authenticated by: HARSHAL MORENO Date: 05/24/2024 17:59 Discharge Plan Discharge Stand Alone Forms: Portal Instructions Chief Complaint: Extremity Injury, Lower Clinical Impression: Left ankle sprain Patient Disposition: Home, Self-Care Time of Disposition Decision: 18:12 Condition: Good Prescriptions / Home Meds: New ketorolac 10 mg tablet 10 mg PO TID PRN (Reason: pain) Qty: 10 0RF No Action ketorolac 10 mg tablet 10 mg PO TID PRN (Reason: pain) Qty: 10 0RF cephalexin 500 mg capsule 500 mg PO Q8H 10 Days Qty: 30 0RF Print Language: Thai Instructions: Ankle Sprain (ED) Referrals: GUERRERO EMMANUEL [Primary Care Provider] - 1 week
[2024-05-24] MEDS: KETOROLAC TROMETHAMINE 10 MG TABLET PO (18:17)
== END 2024-05-24 18:33 | disposition home or self-care (01) ==
PROVIDERS: Emergency Provider Emergency Medicine Emergency Medical Services; PCP Nurse Practitioner Family
DX: S93.402A Sprain of unspecified ligament of left ankle, initial encounter (principal); W19.XXXA Unspecified fall, initial encounter
CPT/HCPCS: 73610; 73630; 99283

== ENCOUNTER 2024-07-11 11:41 | Outpatient (REF) | payer BC, SELFPAY ==
--- OUTSIDE RECORDS SUMMARY | 2024-07-11 11:50 | XMS_ITS | CCD ---
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 Name Role Phone Monique [place] Unavailable MONIQUE [...] Consulting Unavailsandra [place] NP-C Monique Attending Provider [phone] LORI Emmanuel Primary Care Provider [phone] MONIQUE EMMANUEL Primary Care Physician Pato Koehler Referring Unavailable Pato Koehler Attending Unavailable Pato Koehler Admitting Unavailable Pato Koehler Referring Unavailable Pato Koehler Attending Unavailable Pato Koehler Admitting Unavailable SHITAL Koehler Attending Provider [phone] Monique Emmanuel Primary Care Unavailable Pato Koehler Attending Unavailable Pato Koehler Admitting Unavailable Monique [place] Attending Unavailable Monique [place] Admitting Unavailable Monique Emmanuel Primary Care Unavailable PATO KOEHLER Attending Unavailable PATO KOEHLER Attending Unavailable PATO KOEHLER Attending Unavailable PATO KOEHLER Attending Unavailable PATO KOEHLER Attending Unavailable PATO KOEHLER Attending Unavailable Allergies Allergy Classification Reported Allergen(s) Allergy Type Date of Onset Reaction(s) Facility (1 source) Egg protein Drug allergy [facility] Other (1 source) Sulf-[address] [facility] Other (1 source) Sulfonamides (Antibiotic) Drug allergy (disorder) 3 [facility] (4 sources) Sulfonamides (Antibiotic); Translations: [Sulfa (Sulfonamide Antibiotics)] Allergy to substance 4 [facility] (4 sources) Egg Derived; Translations: [Egg Derived] Allergy to substance 4 [facility] (3 sources) Sulfonamides (Antibiotic); Translations: [sulfa drugs] Drug allergy [facility] Medications Current Medications Medication Drug Class(es) [...] 0, Sleep Start Date: 04/25/24 Status: Ordered Salvo Sling (3 sources) Start: 02-27-2024 Salvo Slin g Active 0 .Route 1 February [...] D deficiency] Onset: 08-19-2022 04-25-2024 Chronic Other congenital anomalies (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), including pelvic girdle; 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), including pelvic girdle] Onset: 05-16-2024 Chronic Other non-traumatic joint disorders (1 source) Pain in right shoulder; Translations: [Pain in right shoulder] Onset: 02-27-2024 Episodic Other upper respiratory disease (1 source) Allergic rhinitis due to pollen; Translations: [Allergic rhinitis due to pollen] Chronic Other upper respiratory infections (4 sources) Chronic sinusitis, unspecified; Translations: [CHRONIC SINUSITIS UNSPECIFIED] Onset: 01-05-2023 Chronic Pancreatic disorders (not diabetes) (2 sources) [...] Creatinine Clr Calc Pharmacy 161.75 Normal [facility] Comment on above: Result Comment: PERF ORMED BY: [place] [address] PATHOLOGIST NUT SORTER ISMEON BIGGS M.D. Performed By: #### B #### [address] GFR/1.73 sq M.predicted MDRD (S/P/Bld) [Vol rate/Area] mL/min/{1.73_m2} Normal [facility] Comment on above: Performed By: #### B MP #### [facility] [address] Calcium [Mass/volume] in Ser um or PlasmaOrdered By: Melvin Ruano on 05-16-2024 Calcium [Mass/Vol] 8.8 mg/dL Normal 8.6-10.3 [facility] Comment on above: Performed By: #### B MP #### [facility] [address] Capillary blood glucose jaswinder urement by glucometer (mass/volume)Ordered By: Pato Koehler on 05-16-2024 Glucose [Mass/Vol] 106 mg/dL Normal [facility] Comment on above: Random Glucose Refer ence Range is dependent on time and content of last meal. Glucose of more than 200 mg/dL in a nonstressed, ambulatory subject supports the diagnosis of Diabetes Mellitus. Result Comment: [place] om Glucose Reference Range is dependent on time and content of last meal. Glucose of more than 200 mg/dL in a nonstressed, ambulatory subject supports the diagnosis of Diabetes Mellitus. Performed By: #### G BARAK #### Point of Care testing , Carbon dioxide, total [Moles /volume] in Serum or PlasmaOrdered By: Melvin Ruano on 05-16-2024 CO2 [Moles/Vol] 27.3 mmol/L Normal 21.0-31.0 [facility] Comment on above: Performed By: #### B MP #### [facility] [address] [place] [address] [place] Chloride [Moles/volume] in S nikkie or PlasmaOrdered By: Melvin Ruano on 05-16-2024 Chloride [Moles/Vol] 105 mmol/L Normal 98-107 [facility] Comment on above: Performed By: #### B MP #### [facility] [address] Creatinine [Mass/volume] in Serum or PlasmaOrdered By: Melvin Ruano on 05-16-2024 Creatinine [Mass/Vol] 0.66 mg/dL Normal 0.60-1.20 [facility] Comment on above: Performed By: #### B MP #### [address] Glucose Poct Glucometerson 0 05-16-2024 Commemt1 Glu2: Cleaned Meter Normal [facility] Comment on above: Result Comment: PERF ORMED BY: [place] [address] PATHOLOGIST NUT SORTER SIMEON BIGGS M.D. Performed By: #### G LURUSSELL #### Point of Care testing , Glucose [Mass/volume] in Ser um or PlasmaOrdered By: Melvin Ruano on 05-16-2024 Glucose [Mass/Vol] 107 mg/dL High 70-100 [facility] Comment on above: ADA recommended refe rence rangeRandom Glucose Reference Range is dependent on time and content of last meal. Glucose of more than 200 mg/dL in a nonstressed, ambulatory subject supports the diagnosis of Diabetes Mellitus. Result Comment: [place] om Glucose Reference Range is dependent on time and content of last meal. Glucose of more than 200 mg/dL in a nonstressed, ambulatory subject supports the diagnosis of Diabetes Mellitus. ADA recommended reference range Performed By: #### B MP #### [address] HCG ( test) IA.rapi d Ql (U)Ordered By: Melvin Ruano on 05-16-2024 HCG ( test) Ql (U) Negative [facility] HCG,Urineon 05-16-2024 Beta HCG ( test) Ql (U) Negative Normal [facility] Comment on above: Result Comment: PERF ORMED BY: [place] [address] PATHOLOGIST NUT SORTER SIMEON BIGGS M.D. Performed By: #### U HCG #### [place] [address] [place] Jason 05-16-2024 L Specimen: [id number] Received: 05/16/24-1257 Status: SOUT Req Num: [id number] Spec Type: Surgical Subm Dr: Pato Koehler DPM Tissues: A Bone Fragments - Other than Path Fracture (ACCESSORY BONE LT FOOT) Procedures: HE, Gross/Micro L3, Decalcification Age/ Patient Sex Location Account Attending Physician Noel Paul 33/F ID [id number] Pato Koehler DPM SPEC NUM: [id number] RECD: 05/16/24 STATUS: KESHA ROMO NUM: [id number] BRUNO: 05/16/24- SUBM DR: Pato Koehler DPM ENTERED: 05/16/24-8 [facility] DR: WADE TYPE: Surgical DEPT: S ORDERED: HE, Gross/Micro [...] areas of necrosis or cysts are present. Farm Butcher sections are submitted following decalcification in A1. CPT Codes 88383, 22032 Specimen: [id number] Received: 05/16/24-1256 Status: KESHA Romo Num: [id number] Spec Type: Surgical Subm Dr: Pato Koehler DPM Tissues: A Bone Fragments - Other than Path Fracture (ACCESSORY BONE LT FOOT) Procedures: HE, Gross/Micro L3, Decalcification Patient: Noel Paul [id number] (Continued) Signed (signature on file) Tabatha Dupree MD 05/19/24 1640 Normal [facility] No Panel InformationOrdered By: Pato Koehler on 05-16-2024 Bedside Glucose Comment Glu2: cleaned meter [facility] No Panel InformationOrdered By: Melvin Ruano on 05-16-2024 Estimated GFR (CKD-EPI) > 60.0 mL/Min [facility] Creatinine Clearance (Chem 161.75 [facility] Potassium [Moles/volume] in Serum or PlasmaOrdered By: Melvin Ruano on 05-16-2024 Potassium [Moles/Vol] 3.8 mmol/L Normal 3.5-5.1 [facility] Comment on above: Performed By: #### B MP #### [address] Serum or plasma anion gap de terminationOrdered By: Melvin Ruano on 05-16-2024 Anion gap [Moles/Vol] 9.5 mmol/L Normal 6.0-15.0 [facility] Comment on above: Performed By: #### B MP #### [address] Sodium [Moles/volume] in Ser um or PlasmaOrdered By: Melvin Ruano on 05-16-2024 Sodium [Moles/Vol] 138 mmol/L Normal 136-145 [facility] Comment on above: Performed By: #### B MP #### [address] Urea nitrogen [Mass/volume] in Serum or PlasmaOrdered By: Melvin Ruano on 05-16-2024 Urea nitrogen [Mass/Vol] 17 mg/dL Normal 7-25 [facility] Comment on above: Performed By: #### B MP #### [address] XR foot LT 2Von 05-16-2024 XR foot LT 2V [facility] Main [place] [address] [place] [address] XRay Report Signed Patient: Noel Paul MR#: [id number] : 1990 Acct:[id number] Age/Sex: 33 / F ADM Date: 05/16/24 Loc: ID Room: Type: [facility] Attending Dr: Pato Koehler DPM Copies [...] Leisa Adames M.D.05/16/2024 3:20 PM Dictation Location: [place] [address] Transcribed By: [facility] 05/16/24 1520 Dictated By: Leisa Adames MD 05/16/24 1515 Signed By: 05/16/24 1520 Normal [facility] CBC w/ Auto Diffon 4 Basophils/100 WBC (Bld) 0.5 % Normal 0.0-2.0 F [facility] Comment on above: Performed By: #### 2 [id number] #### [facility] [address] [place] [address] Basophils/Leukocytes Auto (Bld) [Pure # fraction] 0.1 E9/L Normal 0.0-0.2 [facility] Comment on above: Performed By: #### 2 [id number] #### [facility] [address] [place] [address] Eosinophils (Bld) [#/Vol] 0.3 E9/L Normal 0.0-0.5 [facility] Comment on above: Performed By: #### 2 [id number] #### [facility] [address] [place] [address] Eosinophils/100 WBC (Bld) 2.9 % Normal 0.0-8.0 [facility] Comment on above: Performed By: #### 2 [id number] #### [facility] [address] [place] [address] Erythrocyte distribution width (RBC) [Ratio] 15.6 % High 10.9-14.2 [facility] Comment on above: Performed By: #### 2 [id number] #### [facility] [address] [place] [address] Hematocrit (Bld) [Volume fraction] 39.9 % Normal 34.0-46.0 [facility] Comment on above: Performed By: #### 2 [id number] #### [facility] [address] [place] [address] [place] [address] Hemoglobin (Bld) [Mass/Vol] 12.8 g/dL Normal 12.0-16.0 [facility] Comment on above: Performed By: #### 2 [id number] #### [facility] [address] [place] [address] Lymphocytes (Bld) [#/Vol] 2.3 E9/L Normal 1.0-4.0 [facility] Comment on above: Performed By: #### 2 [id number] #### [facility] [address] [place] [address] Lymphocytes/100 WBC (Bld) 20.9 % Normal 14.0-50.0 [facility] Comment on above: Performed By: #### 2 [id number] #### [facility] [address] [place] [address] MCH (RBC) [Entitic mass] 25.4 pg Low 27.0-34.0 [facility] Comment on above: Performed By: #### 2 [id number] #### [facility] [address] [place] [address] MCHC (RBC) [Mass/Vol] 32.2 g/dL Normal 31.4-36.0 [facility] Comment on above: Performed By: #### 2 [id number] #### [facility] [address] [place] [address] MCV (RBC) [Entitic vol] 79.0 fL Low 80.0-100.0 F [facility] Comment on above: Performed By: #### 2 [id number] #### [facility] [address] [place] [address] Monocytes (Bld) [#/Vol] 0.7 E9/L Normal 0.2-1.0 [facility] Comment on above: Performed By: #### 2 [id number] #### [facility] [address] [place] [address] Neutrophils (Bld) [#/Vol] 7.7 E9/L High 2.0-7.5 [facility] Comment on above: Performed By: #### 2 275127 #### [facility] [address] [place] [address] Neutrophils/100 WBC (Bld) 69.3 % Normal 36.0-75.0 [facility] Comment on above: Performed By: #### 2 [id number] #### [facility] [address] [place] [address] Platelet mean volume (Bld) [Entitic vol] 8.3 fL Normal 6.4-10.8 [facility] Comment on above: Performed By: #### 2 [id number] #### [facility] [address] [place] [address] Platelets (Bld) [#/Vol] 346.0 E9/L Normal 150.0-500.0 [facility] Comment on above: Performed By: #### 2 [id number] #### [facility] [address] [place] [address] RBC (Bld) [#/Vol] 5.1 E12/L Normal 4.3-5.9 [facility] Comment on above: Performed By: #### 2 [id number] #### [facility] [address] [place] [address] WBC corrected for nucl RBC Auto (Bld) [#/Vol] 11.1 E9/L High 4.0-11.0 [facility] Comment on above: Performed By: #### 2 [id number] #### [facility] [address] [place] [address] Consent for Treatmenton 03-29 Consent for Treatment [id number] #1.00TIFF Normal [facility] HEMATOLOGYOrdered By: SYSTEM SYSTEM on 04-25-2024 Basophils/100 [...] Remisol Heme Physician Orderon 04-18-2024 Physician Order [id number] #1.00TIFF Normal [facility] XR shoulder RT min 2V*on XR shoulder RT min 2V* [facility] [place] [address] XRay Report Signed Patient: Noel Paul MR#: [id number] : 1990 Acct:[id number] Age/Sex: 33 / F ADM Date: 02/27/24 Loc: XDUCLY Room: Type: [facility] Attending Dr: Monique SANDOVAL Copies to: LORI [...] Leisa Adames M.D.02/27/2024 6:14 PM Dictation Location: [place] [address] Transcribed By: [facility] 02/27/241813 Dictated By: Leisa Adames MD 02/27/241812 Signed By: 02/27/241813 Normal [facility] GLYCOHEMOGLOBIN A1Con 2022 ADA RECOMMENDATION SEE BELOW Normal [facility] Comment on above: Result Comment: ADA RECOMMENDED LIMIT 4.0 - 6.0 ADA THERAPEUTIC TARGET < 7.0 ACTION SUGGESTED > 7.0 Performed By: #### A 1C #### [facility] [address] [place] [address] Dr. Benito Dupree Glucose [Mass/Vol] 105 mg/dL Normal [facility] Comment on above: Performed By: #### A 1C #### [facility] [address] [place] [address] Dr. Benito Dupree HbA1c (Bld) [Mass fraction] 5.3 % Normal 4.5-6.2 [facility] Comment on above: Performed By: #### A 1C #### [facility] [address] [place] [address] Dr. Benito Dupree Covid-19 PCR ([facility])on SARS-CoV-2 (COVID-19) RNA MUKUND+probe Ql (Unsp spec) Not detected Normal NOT DETECTED [facility] Comment on above: Result Comment: This test is not yet approved or cleared by the [place] FDA. When there are no FDA-approved or cleared tests available, and other criteria are met, FDA can make tests available under an emergency access mechanism called an Emergency Use Authorization (EUA). The EUA for this test is supported by the [employer] Lead Teacher of Health and Human Service's (HHS's) declaration [...] SARS-CoV-2. Performed By: #### C VDTBH #### [facility] [address] [place] [address] Dr. Benito Dupree INFLUENZA A AND B AGon 01-05 INFLUANEGH SEE BELOW Normal [facility] Comment on above: Result Comment: Nega tive for Flu A protein angiten. Infection due to Flu A cannot be ruled out. Flu A angiten in the sample may be below the detection limit of the test. Performed By: #### I NFLUAB #### [facility] [address] [place] [address] Dr. Benito Dupree [facility] SEE BELOW Normal [facility] Comment on above: Result Comment: Nega tive for Flu B protein antigen. Infection due to Flu B cannot be ruled out. Flu B antigen in the sample may be below the detection limit of the test. Performed By: #### I NFLUAB #### [facility] [address] [place] [address] Dr. Benito Dupree INFLUENZA A AG Negative Normal NEGATIVE SEE COMMENT [facility] Comment on above: Performed By: #### I NFLUAB #### [facility] [address] [place] [address] Dr. Benito Dupree INFLUENZA B AG Negative Normal NEGATIVE SEE COMMENT [facility] Comment on above: Performed By: #### I NFLUAB #### [facility] [address] [place] [address] Dr. Benito Dupree GLYCOHEMOGLOBIN A1Con 2021 ADA RECOMMENDATION SEE BELOW Normal [facility] Comment on above: Result Comment: ADA RECOMMENDED LIMIT 4.0 - 6.0 ADA THERAPEUTIC TARGET < 7.0 ACTION SUGGESTED > 7.0 Performed By: #### A 1C #### [facility] [address] [place] [address] Dr. Benito Dupree Glucose [Mass/Vol] 143 mg/dL Normal [facility] Comment on above: Performed By: #### A 1C #### [facility] [address] [place] [address] Dr. Benito Dupree HbA1c (Bld) [Mass fraction] 6.6 % Critically high 4.5-6.2 [facility] Comment on above: Performed By: #### A 1C #### [facility] [address] [place] [address] Dr. Benito Dupree LIPID PROFILEon 11-15-2022 CHOL-HDL RATIO NORM SEE BELOW Normal [facility] Comment on above: Result Comment: 3.3 - 4.4 LOW RISK 4.4 - 7.1 AVERAGE RISK 7.1 - 11.0 MODERATE RISK >11.0 HIGH RISK Performed By: #### I NFLUAB #### [facility] [address] [place] [address] [address] Benito Dupree Cholesterol [Mass/Vol] 154 mg/dL Normal <=200 Th [facility] Comment on above: Performed By: #### I NFLUAB #### [facility] [address] [place] [address] [address] Benito Dupree Cholesterol in HDL [Mass/Vol] 29 mg/dL Critically low 40-60 [facility] Comment on above: Performed By: #### I NFLUAB #### [facility] [address] [place] [address] [address] Benito Dupree Cholesterol in LDL [Mass/Vol] 98.2 mg/dL Normal [facility] Comment on above: Performed By: #### I NFLUAB #### [facility] [address] [place] [address] [address] Benito Dupree Cholesterol.total/Lisandra sterol in HDL [Mass ratio] 5.3 {ratio} Normal [facility] Comment on above: Performed By: #### I NFLUAB #### [facility] [address] [place] [address] Dr. Benito Dupree HDL NORMAL > or = 60 mg/dl - LOW CARDIOVASCULAR RISK <40 mg/dl - HIGH CARDIOVASCULAR RISK Normal [facility] Comment on above: Performed By: #### I NFLUAB #### [facility] [address] [place] [address] [address] Benito Dupree LDL CALC NORMAL SEE BELOW Normal [facility] Comment on above: Result Comment: <100 mg/dl OPTIMAL 100 - 129 mg/dl NEAR OR ABOVE OPTIMAL 130 - 159 mg/dl BORDERLINE HIGH 160 - 189 mg/dl HIGH >190 mg/dl VERY HIGH Performed By: #### I NFLUAB #### [facility] [address] [place] [address] [address] Benito Dupree Triglyceride [Mass/Vol] 134 mg/dL Normal <=150 T [facility] Comment on above: Performed By: #### I NFLUAB #### [facility] [address] [place] [address] [address] Benito Dupree VLDL CALC 26.8 mg/dL Normal [facility] Comment on above: Performed By: #### I NFLUAB #### [facility] [address] [place] [address] Dr. Benito Dupree INSULINon 08-19-2022 Insulin 24.3 uIU/mL Normal 2.6-24.9 [facility] Comment on above: Performed By: #### I NFLUAB #### [facility] [address] [place] [address] Dr. Benito Dupree T4, T3U, FTI LABCORPon 08-19 Free Thyroxine Index 2.6 Normal 1.2-4.9 [facility] Comment on above: Performed By: #### T HYLC #### [facility] [address] [place] [address] Dr. Benito Dupree T3 Uptake 29 % Normal 24-39 [facility] Comment on above: Performed By: #### T HYLC #### [facility] [address] [place] [address] Dr. Benito Dupree T4 [Mass/Vol] 8.8 ug/dL Normal 4.5-12.0 [facility] Comment on above: Performed By: #### T HYLC #### [facility] [address] [place] [address] Dr. Benito Dupree CBC AUTO DIFFon 08-18-2022 BASO # 0.1 103/ul Normal 0.0-0.1 [facility] Comment on above: Performed By: #### I NFLUAB #### [facility] [address] [place] [address] Dr. Benito Dupree Basophils/100 WBC (Bld) 0.8 % Normal 0.2-2.0 [facility] Comment on above: Performed By: #### I NFLUAB #### [facility] [address] [place] [address] Dr. Benito Dupree EO # 0.3 103/ul Normal 0.0-0.7 [facility] Comment on above: Performed By: #### I NFLUAB #### [facility] [address] [place] [address] Dr. Benito Dupree Eosinophils/100 WBC (Bld) 2.8 % Normal 0.9-7.0 [facility] Comment on above: Performed By: #### I NFLUAB #### [facility] [address] [place] [address] Dr. Benito Dupree Erythrocyte distribution width (RBC) [Ratio] 15.4 % Critically high 11.0-15.0 [facility] Comment on above: Performed By: #### I NFLUAB #### [facility] [address] [place] [address] Dr. Benito Dupree Hematocrit (Bld) [Volume fraction] 43.7 % Normal 36.0-48.0 [facility] Comment on above: Performed By: #### I NFLUAB #### [facility] [address] [place] [address] Dr. Benito Dupree Hemoglobin (Bld) [Mass/Vol] 14.2 g/dL Normal 12.0-16.0 [facility] Comment on above: Performed By: #### I NFLUAB #### [facility] [address] [place] [address] Dr. Benito Dupree IG # 0.08 10e3/ul Critically high 0.00-0.03 [facility] Comment on above: Performed By: #### I NFLUAB #### [facility] [address] [place] [address] Dr. Benito Dupree IG % 0.9 % Critically high 0.0-0.[address] [facility] Comment on above: Performed By: #### I NFLUAB #### [facility] [address] [place] [address] Dr. Benito Dupree LYMPH # 2.3 103/ul Normal 1.2-3.8 [facility] Comment on above: Performed By: #### I NFLUAB #### [facility] [address] [place] [address] Dr. Benito Dupree Lymphocytes/100 WBC (Bld) 24.3 % Normal 20.5-60.0 [facility] Comment on above: Performed By: #### I NFLUAB #### [facility] [address] [place] [address] Dr. Benito Dupree MANUAL DIFF REQ NO Normal [facility] Comment on above: Performed By: #### I NFLUAB #### [facility] [address] [place] [address] Dr. Benito Dupree MCH (RBC) [Entitic mass] 26.1 pg Critically low 26.7-34.0 [facility] Comment on above: Performed By: #### I NFLUAB #### [facility] [address] [place] [address] Dr. Benito Dupree MCHC (RBC) [Mass/Vol] 32.5 g/dL Normal 29.9-35.2 [facility] Comment on above: Performed By: #### I NFLUAB #### [facility] [address] [place] [address] Dr. Benito Dupree MCV (RBC) [Entitic vol] 80.2 fL Critically low 81.0-99. 0 [facility] Comment on above: Performed By: #### I NFLUAB #### [facility] [address] [place] [address] Dr. Benito Dupree MONO # 0.5 103/ul Normal 0.3-0.8 [facility] Comment on above: Performed By: #### I NFLUAB #### [facility] [address] [place] [address] Dr. Benito Dupree Monocytes/100 WBC (Bld) 5.2 % Normal 1.7-12.0 [facility] Comment on above: Performed By: #### I NFLUAB #### [facility] [address] [place] [address] Dr. Benito Dupree NEUT # 6.1 103/ul Normal 1.4-6.5 [facility] Comment on above: Performed By: #### I NFLUAB #### [facility] [address] [place] [address] Dr. Benito Dupree Neutrophils/100 WBC (Bld) 66.0 % Normal 43.0-75.0 [facility] Comment on above: Performed By: #### I NFLUAB #### [facility] [address] [address] [address] Benito Dupree Platelet mean volume (Bld) [Entitic vol] 9.9 fL Normal 9.5-13.5 [facility] Comment on above: Performed By: #### I NFLUAB #### [facility] [address] [address] [address] Benito Dupree PLT 291 103/ul Normal 150-450 [facility] Comment on above: Performed By: #### I NFLUAB #### [facility] [address] [address] [address] Benito Dupree RBC 5.45 106/ul Critically high 4.20-5.40 [facility] Comment on above: Performed By: #### I NFLUAB #### [facility] [address] [address] [address] Benito Dupree WBC 9.3 103/ul Normal 4.0-11.0 [facility] Comment on above: Performed By: #### I NFLUAB #### [facility] [address] [address] [address] Benito Dupree DIRECT LDLon 08-18-2022 Cholesterol in LDL [Mass/Vol] 50 mg/dL Normal [facility] Comment on above: Performed By: #### T HYLC #### [facility] [address] [place] [address] Dr. Benito Dupree DLDL NORMAL SEE BELOW Normal [facility] Comment on above: Result Comment: <100 mg/dl OPTIMAL 100 - 129 mg/dl NEAR OR ABOVE OPTIMAL 130 - 159 mg/dl BORDERLINE HIGH 160 - 189 mg/dl HIGH >190 mg/dl VERY HIGH Performed By: #### T HYLC #### [facility] [address] [address] [address] Benito Dupree GLYCOHEMOGLOBIN A1Con 2021 ADA RECOMMENDATION SEE BELOW Normal [facility] Comment on above: Result Comment: ADA RECOMMENDED LIMIT 4.0 - 6.0 ADA THERAPEUTIC TARGET < 7.0 ACTION SUGGESTED > 7.0 Performed By: #### A 1C #### [facility] [address] [address] [address] Benito Dupree Glucose [Mass/Vol] 332 mg/dL Normal [facility] Comment on above: Performed By: #### A 1C #### [facility] [address] [place] [address] Dr. Benito Dupree HbA1c (Bld) [Mass fraction] 13.2 % Critically high 4.5-6.2 [facility] Comment on above: Performed By: #### A 1C #### [facility] [address] [place] [address] Dr. Benito Dupree IRONon 08-18-2022 Iron [Mass/Vol] 53.0 ug/dL Normal 50.0-170.0 [facility] Comment on above: Performed By: #### I NFLUAB #### [facility] [address] [place] [address] Dr. Benito Dupree LIPID PROFILEon 08-18-2022 CHOL-HDL RATIO NORM SEE BELOW Normal [facility] Comment on above: Result Comment: 3.3 - 4.4 LOW RISK 4.4 - 7.1 AVERAGE RISK 7.1 - 11.0 MODERATE RISK >11.0 HIGH RISK Performed By: #### T HYLC #### [facility] [address] [place] [address] Dr. Benito Dupree Cholesterol [Mass/Vol] 260 mg/dL Critically high <=200 [facility] Comment on above: Performed By: #### T HYLC #### [facility] [address] [place] [address] Dr. eBnito Dupree Cholesterol in HDL [Mass/Vol] 23 mg/dL Critically low 40-60 [facility] Comment on above: Performed By: #### T HYLC #### [facility] [address] [address] [address] Benito Dupree Cholesterol.total/Lisandra sterol in HDL [Mass ratio] 11.3 {ratio} Normal [facility] Comment on above: Performed By: #### T HYLC #### [facility] [address] [place] [address] Dr. Benito Dupree HDL NORMAL > or = 60 mg/dl - LOW CARDIOVASCULAR RISK <40 mg/dl - HIGH CARDIOVASCULAR RISK Normal [facility] Comment on above: Performed By: #### T HYLC #### [facility] [address] [place] [address] Dr. Benito Dupree Triglyceride [Mass/Vol] 1711 mg/dL Critically high <=150 [facility] Comment on above: Performed By: #### T HYLC #### [facility] [address] [place] [address] Dr. Benito Dupree VLDL CALC 342.2 mg/dL Normal [facility] Comment on above: Performed By: #### T HYLC #### [facility] [address] [place] [address] Dr. Benito Dupree PROF 14(COMP METB)on 022 Albumin [Mass/Vol] 3.2 g/dL Critically low 3.4-5.0 [facility] Comment on above: Performed By: #### T HYLC #### [facility] [address] [place] [address] Dr. Benito Dupree Albumin/Globulin [Mass ratio] 0.7 {ratio} Normal [facility] Comment on above: Performed By: #### T HYLC #### [facility] [address] [place] [address] Dr. Benito Dupree ALP [Catalytic activity/Vol] 92 U/L Normal 46-116 [facility] Comment on above: Performed By: #### T HYLC #### [facility] [address] [place] [address] Dr. Benito Dupree ALT [Catalytic activity/Vol] 41 U/L Normal 14-59 [facility] Comment on above: Performed By: #### T HYLC #### [facility] [address] [place] [address] Dr. Benito Dupree Anion gap [Moles/Vol] 14.1 mmol/L Normal [facility] Comment on above: Performed By: #### T HYLC #### [facility] [address] [place] [address] Dr. Benito Dupree AST [Catalytic activity/Vol] 16 U/L Normal 15-37 [facility] Comment on above: Performed By: #### T HYLC #### [facility] [address] [address] [address] Benito Dupree Bilirubin [Mass/Vol] 0.9 mg/dL Normal 0.2-1.0 [facility] Comment on above: Performed By: #### T HYLC #### [facility] [address] [address] [address] Benito Dupree Calcium [Mass/Vol] 9.1 mg/dL Normal 8.5-10.1 [facility] Comment on above: Performed By: #### T HYLC #### [facility] [address] [place] [address] Dr. Benito Dupree Chloride [Moles/Vol] 97 mmol/L Critically low 98-107 [facility] Comment on above: Performed By: #### T HYLC #### [facility] [address] [place] [address] Dr. Benito Dupree CO2 [Moles/Vol] 24.9 mmol/L Normal 21.0-32.0 [facility] Comment on above: Performed By: #### T HYLC #### [facility] [address] [place] [address] Dr. Benito Dupree Creatinine [Mass/Vol] 0.67 mg/dL Normal 0.55-1.02 [facility] Comment on above: Performed By: #### T HYLC #### [facility] [address] [place] [address] Dr. Benito Dupree EGFR-AF AUSTRALIAN >60 Normal >=60 [facility] Comment on above: Performed By: #### T HYLC #### [facility] [address] [place] [address] Dr. Benito Dupree EGFR-NON AF AUSTRALIAN >60 Normal >=60 [facility] Comment on above: Performed By: #### T HYLC #### [facility] [address] [place] [address] Dr. Benito Dupree Globulin (S) [Mass/Vol] 4.6 g/dL Normal [facility] Comment on above: Performed By: #### T HYLC #### [facility] [address] [address] [address] Benito Dupree Glucose [Mass/Vol] 402 mg/dL Critically high 74-106 [facility] Comment on above: Performed By: #### T HYLC #### [facility] [address] [address] [address] Benito Dupree Potassium [Moles/Vol] 4.0 mmol/L Normal 3.5-5.1 [facility] Comment on above: Performed By: #### T HYLC #### [facility] [address] [address] [address] Benito Dupree Protein [Mass/Vol] 7.8 g/dL Normal 6.4-8.2 [facility] Comment on above: Performed By: #### T HYLC #### [facility] [address] [place] [address] Dr. Benito Dupree Sodium [Moles/Vol] 132 mmol/L Critically low 136-145 [facility] Comment on above: Performed By: #### T HYLC #### [facility] [address] [place] [address] Dr. Benito Dupree Urea nitrogen [Mass/Vol] 10.0 mg/dL Normal 7.0-18.0 [facility] Comment on above: Performed By: #### T HYLC #### [facility] [address] [place] [address] Dr. Benito Dupree Urea nitrogen/Creatinine [Mass ratio] 14.9 mg/mg Normal [facility] Comment on above: Performed By: #### T HYLC #### [facility] [address] [address] [address] Beniot Dupree TSHon 08-18-2022 TSH 3.676 uIU/mL Normal 0.358-3.740 [facility] Comment on above: Performed By: #### T HYLC #### [facility] [address] [place] [address] Dr. Benito Dupree VITAMIN D 25 OHon 08-18-2022 VIT D 25-OH 13.9 ng/mL Normal [facility] Comment on above: Performed By: #### I NFLUAB #### [facility] [address] [place] [address] Dr. Benito Dupree VIT D RANGES SEE BELOW Normal [facility] Comment on above: Result Comment: <20 ng/mL Vit D deficient 20 - <30 ng/mL Vit D insufficient 30 - 100 ng/mL Vit D sufficient >100 ng/mL Potential Toxicity Performed By: #### I NFLUAB #### [facility] [address] [place] [address] Dr. Benito Dupree AMYLASEon 06-01-2022 Amylase [Catalytic activity/Vol] 29 U/L Normal 25-115 [facility] Comment on above: Performed By: #### I NFLUAB #### [facility] [address] [place] [address] Dr. Benito Dupree CBC AUTO DIFFon 06-01-2022 BASO # 0.1 103/ul Normal 0.0-0.1 [facility] Comment on above: Performed By: #### I NFLUAB #### [facility] [address] [place] [address] Dr. Benito Dupree Basophils/100 WBC (Bld) 0.5 % Normal 0.2-2.0 [facility] Comment on above: Performed By: #### I NFLUAB #### [facility] [address] [place] [address] Dr. Benito Dupree EO # 0.3 103/ul Normal 0.0-0.7 [facility] Comment on above: Performed By: #### I NFLUAB #### [facility] [address] [place] [address] Dr. Benito Dupree Eosinophils/100 WBC (Bld) 2.0 % Normal 0.9-7.0 [facility] Comment on above: Performed By: #### I NFLUAB #### [facility] [address] [place] [address] Dr. Benito Dupree Erythrocyte distribution width (RBC) [Ratio] 15.3 % Critically high 11.0-15.0 [facility] Comment on above: Performed By: #### I NFLUAB #### [facility] [address] [address] [address] Benito Dupree Hematocrit (Bld) [Volume fraction] 41.5 % Normal 36.0-48.0 [facility] Comment on above: Performed By: #### I NFLUAB #### [facility] [address] [address] [address] Benito Dupree Hemoglobin (Bld) [Mass/Vol] 12.7 g/dL Normal 12.0-16.0 [facility] Comment on above: Performed By: #### I NFLUAB #### [facility] [address] [address] [address] Benito Dupree IG # 0.06 10e3/ul Critically high 0.00-0.03 [facility] Comment on above: Performed By: #### I NFLUAB #### [facility] [address] [place] [address] Dr. Benito Dupree IG % 0.4 % Normal 0.0-0.5 [facility] Comment on above: Performed By: #### I NFLUAB #### [facility] [address] [address] [address] Benito Dupree LYMPH # 1.9 103/ul Normal 1.2-3.8 [facility] Comment on above: Performed By: #### I NFLUAB #### [facility] [address] [place] [address] Dr. Benito Dupree Lymphocytes/100 WBC (Bld) 13.9 % Critically low 20.5-60.0 [facility] Comment on above: Performed By: #### I NFLUAB #### [facility] [address] [address] [address] Benito Dupree MANUAL DIFF REQ NO Normal [facility] Comment on above: Performed By: #### I NFLUAB #### [facility] [address] [place] [address] Dr. Benito Dupree MCH (RBC) [Entitic mass] 24.7 pg Critically low 26.7-34.0 [facility] Comment on above: Performed By: #### I NFLUAB #### [facility] [address] [place] [address] Dr. Benito Dupree MCHC (RBC) [Mass/Vol] 30.6 g/dL Normal 29.9-35.2 [facility] Comment on above: Performed By: #### I NFLUAB #### [facility] [address] [place] [address] Dr. Benito Dupree MCV (RBC) [Entitic vol] 80.6 fL Critically low 81.0-99. 0 [facility] Comment on above: Performed By: #### I NFLUAB #### [facility] [address] [place] [address] Dr. Benito Dupree MONO # 0.5 103/ul Normal 0.3-0.8 [facility] Comment on above: Performed By: #### I NFLUAB #### [facility] [address] [place] [address] Dr. Benito Dupree Monocytes/100 WBC (Bld) 4.0 % Normal 1.7-12.0 [facility] Comment on above: Performed By: #### I NFLUAB #### [facility] [address] [place] [address] Dr. Benito Dupree NEUT # 10.6 103/ul Critically high 1.4-6.5 [facility] Comment on above: Performed By: #### I NFLUAB #### [facility] [address] [place] [address] Dr. Benito Dupree Neutrophils/100 WBC (Bld) 79.2 % Critically high 43.0-75.0 [facility] Comment on above: Performed By: #### I NFLUAB #### [facility] [address] [place] [address] Dr. Benito Dupree Platelet mean volume (Bld) [Entitic vol] 9.3 fL Critically low 9.5-13.5 [facility] Comment on above: Performed By: #### I NFLUAB #### [facility] [address] [place] [address] Dr. Benito Dupree PLT 391 103/ul Normal 150-450 [facility] Comment on above: Performed By: #### I NFLUAB #### [facility] [address] [place], [place] [address] Dr. Benito Dupree RBC 5.15 106/ul Normal 4.20-5.40 [facility] Comment on above: Performed By: #### I NFLUAB #### [facility] [address] [place], [place] [address] Dr. Benito Dupree WBC 13.4 103/ul Critically high 4.0-11.0 [facility] Comment on above: Performed By: #### I NFLUAB #### [facility] [address] [address] [address] ABD/PELV W CONon [...] WESTLEY JHA Date: 2022-06-01 14:59 Normal [facility] ER URINE PROFILEon 2 Bilirubin Ql (U) Negative Normal NEGATIVE [facility] [place] Comment on above: Performed By: #### U MICRO, ERUR #### [facility] [address] [address] [address] Benito Dupree Clarity (U) SL CLOUDY Abnormal CLEAR [facility] Comment on above: Performed By: #### U MICRO, ERUR #### [facility] [address] [address] [address] Benito Dupree Color (U) YELLOW Normal YELLOW [facility] Comment on above: Performed By: #### U MICRO, ERUR #### [facility] [address] [address] [address] Benito NAYAKD A micrscopic examination will be performed if indicated. Normal [facility] Comment on above: Performed By: #### U MICRO, ERUR #### [facility] [address] [address] [address] Benito Dupree Glucose Ql (U) Negative Normal NEGATIVE [facility] Comment on above: Performed By: #### U MICRO, ERUR #### [facility] [address] [address] [address] Benito Dupree Hemoglobin Ql (U) LARGE Abnormal NEGATIVE [facility] Comment on above: Performed By: #### U MICRO, ERUR #### [facility] [address] [address] [address] Benito Dupree Ketones Ql (U) Negative Normal NEGATIVE [facility] Comment on above: Performed By: #### U MICRO, ERUR #### [facility] [address] [address] [address] Benito Dupree LEUKOCYTES Negative Normal NEGATIVE [facility] Comment on above: Performed By: #### U MICRO, ERUR #### [facility] [address] [address] [address] Benito Dupree Nitrite Ql (U) Negative Normal NEGATIVE [facility] Comment on above: Performed By: #### U MICRO, ERUR #### [facility] [address] [address] [address] Benito Dupree pH (U) 5.5 [pH] Normal 5-9 [facility] Comment on above: Performed By: #### U MICRO, ERUR #### [facility] [address] [place] [address] Dr. Benito Dupree SPEC GRAVITY 1.010 Normal 1.005-<=1.02 5 [facility] Comment on above: Performed By: #### U MICRO, ERUR #### [facility] [address] [place] [address] Dr. Benito Dupree UA PROTEIN TRACE Normal NEGATIVE/ TRACE [facility] Comment on above: Performed By: #### U MICRO, ERUR #### [facility] [address] [place] [address] Dr. Benito Dupree UR MICRO IND INDICATED Normal [facility] Comment on above: Performed By: #### U MICRO, ERUR #### [facility] [address] [place] [address] Dr. Benito Dupree Urobilinogen Qn (U) 1.0 {Tuyet'U}/dL Normal 0.2 - 1. 0 [facility] Comment on above: Performed By: #### U MICRO, ERUR #### [facility] [address] [place] [address] Dr. Benito Dupree LACTATE/LACTIC ACIDon 2021 Lactate [Moles/Vol] 1.1 mmol/L Normal 0.4-1.9 [facility] Comment on above: Performed By: #### L ACT #### [facility] [address] [place] [address] Dr. Benito Dupree LIPASEon 06-01-2022 Lipase [Catalytic activity/Vol] 111.0 U/L Normal 73.0-393.0 [facility] Comment on above: Performed By: #### I NFLUAB #### [facility] [address] [place] [address] Dr. Benito Dupree PREG HCG QUALon 06-01-2022 , QUAL Negative Normal NEGATIVE [facility] Comment on above: Performed By: #### P REG #### [facility] [address] [address] [address] Benito Dupree PROF 14(COMP METB)on 022 Albumin [Mass/Vol] 3.6 g/dL Normal 3.4-5.0 [facility] Comment on above: Performed By: #### I NFLUAB #### [facility] [address] [place] [address] Dr. Benito Dupree Albumin/Globulin [Mass ratio] 0.7 {ratio} Normal [facility] Comment on above: Performed By: #### I NFLUAB #### [facility] [address] [place] [address] Dr. Benito Dupree ALP [Catalytic activity/Vol] 90 U/L Normal 46-116 [facility] Comment on above: Performed By: #### I NFLUAB #### [facility] [address] [place] [address] Dr. Benito Dupree ALT [Catalytic activity/Vol] 39 U/L Normal 14-59 [facility] Comment on above: Performed By: #### I NFLUAB #### [facility] [address] [place] [address] Dr. Benito Dupree Anion gap [Moles/Vol] 13.0 mmol/L Normal [facility] Comment on above: Performed By: #### I NFLUAB #### [facility] [address] [place] [address] Dr. Benito Dupree AST [Catalytic activity/Vol] 25 U/L Normal 15-37 [facility] Comment on above: Performed By: #### I NFLUAB #### [facility] [address] [place] [address] Dr. Benito Dupree Bilirubin [Mass/Vol] 1.1 mg/dL Critically high 0.2-1.0 [facility] Comment on above: Performed By: #### I NFLUAB #### [facility] [address] [place] [address] Dr. Benito Dupree Calcium [Mass/Vol] 9.4 mg/dL Normal 8.5-10.1 [facility] Comment on above: Performed By: #### I NFLUAB #### [facility] [address] [address] [address] Benito Dupree Chloride [Moles/Vol] 99 mmol/L Normal 98-107 [facility] Comment on above: Performed By: #### I NFLUAB #### [facility] [address] [address] [address] Benito Dupree CO2 [Moles/Vol] 27.3 mmol/L Normal 21.0-32.0 [facility] Comment on above: Performed By: #### I NFLUAB #### [facility] [address] [address] [address] Benito Dupree Creatinine [Mass/Vol] 0.87 mg/dL Normal 0.55-1.02 [facility] Comment on above: Performed By: #### I NFLUAB #### [facility] [address] [place] [address] Dr. Benito Dupree EGFR-AF AUSTRALIAN >60 Normal >=60 [facility] Comment on above: Performed By: #### I NFLUAB #### [facility] [address] [address] [address] Benito Dupree EGFR-NON AF AUSTRALIAN >60 Normal >=60 [facility] Comment on above: Performed By: #### I NFLUAB #### [facility] [address] [address] [address] Benito Dupree Globulin (S) [Mass/Vol] 4.8 g/dL Normal [facility] Comment on above: Performed By: #### I NFLUAB #### [facility] [address] [address] [address] Benito Dupree Glucose [Mass/Vol] 218 mg/dL Critically high 74-106 [facility] Comment on above: Performed By: #### I NFLUAB #### [facility] [address] [address] [address] Benito Dupree Potassium [Moles/Vol] 4.1 mmol/L Normal 3.5-5.1 [facility] Comment on above: Performed By: #### I NFLUAB #### [facility] [address] [place] [address] Dr. Benito Dupree Protein [Mass/Vol] 8.4 g/dL Critically high 6.4-8.2 T [facility] Comment on above: Performed By: #### I NFLUAB #### [facility] [address] [place] [address] Dr. Benito Dupree Sodium [Moles/Vol] 135 mmol/L Critically low 136-145 [facility] Comment on above: Performed By: #### I NFLUAB #### [facility] [address] [place] [address] Dr. Benito Dupree Urea nitrogen [Mass/Vol] 15.0 mg/dL Normal 7.0-18.0 [facility] Comment on above: Performed By: #### I NFLUAB #### [facility] [address] [place] [address] Dr. Benito Dupree Urea nitrogen/Creatinine [Mass ratio] 17.2 mg/mg Normal [facility] Comment on above: Performed By: #### I NFLUAB #### [facility] [address] [place] [address] Dr. Benito Dupree URINE MICROSCOPIC ONLYon BACTERIA TRACE Abnormal NONE SEEN [facility] Comment on above: Performed By: #### U MICRO, ERUR #### [facility] [address] [place] [address] Dr. Benito Dupree Bacteria identified Cx Nom (U) NOT INDICATED Normal [facility] Comment on above: Performed By: #### U MICRO, ERUR #### [facility] [address] [place] [address] Dr. Benito Dupree CAST NONE SEEN Normal NONE SEEN [facility] Comment on above: Performed By: #### U MICRO, ERUR #### [facility] [address] [place] [address] Dr. Benito Dupree Crystals LM Nom (Urine sed) NONE SEEN Normal NONE SEEN [facility] Comment on above: Performed By: #### U MICRO, ERUR #### [facility] [address] [place] [address] Dr. Benito Dupree Epithelial cells LM Ql (Urine sed) MODERATE Abnormal NONE SEEN /RARE [facility] Comment on above: Performed By: #### U MICRO, ERUR #### [facility] [address] [address] [address] Benito Dupree MUCOUS TRACE Abnormal NONE SEEN [facility] Comment on above: Performed By: #### U MICRO, ERUR #### [facility] [address] [address] [address] Benito Dupree RBC 2-5 Abnormal 0-2 [facility] Comment on above: Performed By: #### U MICRO, ERUR #### [facility] [address] [address] [address] Benito Dupree WBC 0-2 Abnormal NONE SEEN [facility] Comment on above: Performed By: #### U MICRO, ERUR #### [facility] [address] [address] [address] Benito Dupree XR hand RT min 3V*on 022 XR hand RT min 3V* [facility] Other XR hand RT min 3V* [facility] [employer] Other XR hand RT min 3V* [address] [place] [address] [employer].[employer] Other XR hand RT min 3V* [place] [address] [employer] Other XR hand RT min 3V* XRay Report [facility] Other XR hand RT min 3V* Signed [facility] Other XR hand RT min 3V* Patient: Noel Paul MR#: [id number] [facility] Other XR hand RT min 3V* : 1990 Acct:[id number] [facility] Other XR hand RT min 3V* Age/Sex: 31 / F ADM Date: 03/22/22 [facility] Other XR hand RT min 3V* Loc: XDUCLY Room: Type: [facility] Other XR hand RT min 3V* Attending Dr: Monique SANDOVAL [facility] Other XR hand RT min 3V* Ordering Provider: LORI Dias [facility] Other XR hand RT min 3V* Date of Service: 03/22/22 [facility] Other XR hand RT min 3V* XR/XR hand RT min 3V*: Finger pain, right [facility] Other XR hand RT min 3V* Copies to: LORI Dias [employer] Other XR hand RT min 3V* 3 viewsRIGHT hand plain film [facility] Other XR hand RT min 3V* COMPARISON:None N [facility] Other XR hand RT min 3V* HISTORY:Fell going upstairs. RIGHT ring finger injury. [facility] Other XR hand RT min 3V* No fracture, dislocation or focal soft tissue abnormality seen. [facility] Other XR hand RT min 3V* XR/XR hand RT min 3V* [facility] Other XR hand RT min 3V* IMPRESSION:No acute findings [facility] Other XR hand RT min 3V* Impression dictated by: Ta Galvan M.D.03/22/2022 4:42 PM [facility] Other XR hand RT min 3V* Dictation Location: [address] [place] [address] [facility] Other XR hand RT min 3V* Transcribed By: DANIELLE 03/22/22 1642 [facility] Other XR hand RT min 3V* Dictated By: Ta Galvan DO 03/22/[address] [facility] [employer] Other XR hand RT min 3V* Signed By: [facility] Other XR hand RT min 3V* 03/22/22 1642 [facility] [employer] Other Vital Signs Date Time Vital Sign Value Performing Clinician Facility 05-16-2024 15:25-0400 Diastolic blood pressure 70 mm[Hg] [employer] SUPERVISOR-C Monique Whitleymer Work Phone: [facility] 05-16-2024 15:25-0400 Heart rate 80 /min [employer] SUPERVISOR-C Monique Whitleymer Work Phone: [facility] 05-16-2024 15:25-0400 Respiratory rate 22 /min [employer] SUPERVISOR-C Monique Whitleymer Work Phone: [facility] 05-16-2024 15:25-0400 SaO2% (BldA) [Mass fraction] 94 % [employer] SUPERVISOR-C Monique Lien Work Phone: [facility] 05-16-2024 15:25-0400 Systolic blood pressure 124 mm[Hg] [employer] SUPERVISOR-C Moniquegisselle Whitleymer Work Phone: [facility] 05-16-2024 12:57-0400 Body temperature 98.6 [degF] [employer] SUPERVISOR-C Monique Lien Work Phone: [facility] 05-16-2024 12:57-0400 Inhaled oxygen flow rate 6 L/min [employer] SUPERVISOR-C Monique Lien Work Phone: [facility] 05-16-2024 10:38-0400 Body mass index (BMI) [Ratio] 56.5 kg/m2 [employer] SUPERVISOR-C Monique Lien Work Phone: [facility] 05-16-2024 10:31-0400 Body height 157.48 cm [employer] SUPERVISOR-C Monique Whitleymer Work Phone: [facility] 05-16-2024 10:31-0400 Body weight 140.16 kg [employer] SUPERVISOR-C Monique Emmanuel Work Phone: [facility] 04-25-2024 13:27-0400 Diastolic blood pressure 85 mm[Hg] Pato Koehler [facility] 04-25-2024 13:27-0400 Heart rate 64 /min Pato Koehler [facility] 04-25-2024 13:27-0400 Mean blood pressure 103 mm[Hg] Pato Koehler [facility] 04-25-2024 13:27-0400 Systolic blood pressure 139 mm[Hg] Pato Koehler [facility] 04-25-2024 13:26-0400 Heart rate 65 /min Pato Koehler [facility] 04-25-2024 13:26-0400 Respiratory rate 16 /min Pato Koehler [facility] 04-25-2024 13:26-0400 SaO2% (BldA) [Mass fraction] 93 % Pato Koehler [facility] 04-25-2024 13:26-0400 Blood Pressure Location Pato Koehler [facility] 04-25-2024 13:26-0400 Body temperature 98.42 [degF] Pato Koehler [facility] 04-25-2024 13:26-0400 Diastolic blood pressure 83 mm[Hg] Pato Koehler [facility] 04-25-2024 13:26-0400 Mean blood pressure 100 mm[Hg] Pato Koehler [facility] 04-25-2024 13:26-0400 Systolic blood pressure 135 mm[Hg] Pato Koehler [facility] 02-27-2024 17:36-0400 Body height 154.94 cm [employer] SUPERVISOR-C Monique Emmanuel Work Phone: [facility] 02-27-2024 17:36-0400 Body mass index (BMI) [Ratio] 58.4 kg/m2 [employer] SUPERVISOR-C Monique Emmanuel Work Phone: [facility] 02-27-2024 17:36-0400 Body temperature 97.7 [degF] [employer] SUPERVISOR-C Monique Emmanuel Work Phone: [facility] 02-27-2024 17:36-0400 Body weight 140.38 kg [employer] SUPERVISOR-C Monique Emmanuel Work Phone: [facility] 02-27-2024 17:36-0400 Heart rate 87 /min [employer] SUPERVISOR-C Monique Emmanuel Work Phone: [facility] 02-27-2024 17:36-0400 Respiratory rate 18 /min [employer] SUPERVISOR-C Monique Emmanuel Work Phone: [facility] 02-27-2024 17:36-0400 SaO2% (BldA) [Mass fraction] 97 % [employer] SUPERVISOR-C Monique Emmanuel Work Phone: [facility] 03-22-2022 16:45-0400 Body height 154.94 cm Monique Dudley Other [facility] [employer] Other 03-22-2022 16:45-0400 Body mass index (BMI) [Ratio] 58.38 kg/m2 Monique Octavia Other [facility] Other 03-22-2022 16:45-0400 Body temperature 97.9 [degF] Monique Octavia Other [facility] Other 03-22-2022 16:45-0400 Body weight 140.16 kg Monique Dudley Other [facility] Other 03-22-2022 16:45-0400 Diastolic blood pressure 93 mm[Hg] Monique Suemond Other [facility] Other 03-22-2022 16:45-0400 Respiratory rate 20 /min Monique Suemond Other [facility] Other 03-22-2022 16:45-0400 SaO2% (BldA) [Mass fraction] 98 % Monique Suemond Other [facility] Other 03-22-2022 16:45-0400 Systolic blood pressure 154 mm[Hg] Monique Suemond Other [facility] Other Encounters Encounter Date Encounter Type Care Provider Facility Start: 06-28-2024 End: 06-28-2024 ambulatory PATO KOEHLER Not Available Start: 06-07-2024 End: 06-07-2024 ambulatory PATO KOEHLER Not Available Start: 05-24-2024 End: 05-24-2024 ambulatory PATO KOEHLER Not Available Start: 05-16-2024 End: 05-16-2024 Admission to same day surgery center [employer] SUPERVISOR-C Monique Emmanuel Work Phone: [facility] [place] Start: 05-16-2024 End: 05-16-2024 ambulatory [employer] SUPERVISOR-C Monique Emmanuel Work Phone: [facility] Work Phone: Start: 05-03-2024 End: 05-03-2024 ambulatory PATO KOEHLER Not Available Start: 04-25-2024 End: 04-26-2024 ambulatory Pato Koehler Facility:[facility] Start: 04-25-2024 End: 04-25-2024 Patient encounter procedure Pato Koehler [facility] Start: 04-16-2024 End: 05-10-2024 Pre-admission assessment Pato Koehler [facility] Start: 04-12-2024 End: 04-12-2024 ambulatory PATO KOEHLER Not Available Start: 03-29-2024 End: 03-29-2024 ambulatory PATO KOEHLER Not Available Start: 02-27-2024 End: 02-27-2024 ambulatory [employer] SUPERVISOR-C Monique Emmanuel Work Phone: [facility] Work Phone: Start: 02-27-2024 End: 02-27-2024 Patient encounter procedure BA[employer]NA [employer] SUPERVISOR-C Monique Emmanuel Work Phone: [facility] Work Phone: Start: 04-27-2023 ambulatory MONIQUE EMMANUEL Facility: [facility] Start: 01-05-2023 End: 01-05-2023 ambulatory MONIQUE EMMANUEL Facility:[facility] Start: 11-28-2022 End: 11-29-2022 ambulatory MONIQUE EMMANUEL Facility:[facility] Start: 11-15-2022 End: 11-16-2022 ambulatory MONIQUEGISSELLE EMMANUEL Facility:[facility] Start: 10-25-2022 End: 11-27-2022 ambulatory MONIQUEGISSELLE EMMANUEL Facility:[facility] Start: 08-25-2022 End: 08-26-2022 ambulatory MONIQUE EMMANUEL Facility:[facility] Start: 08-19-2022 Encounter for genera l adult medical examination without abnormal findings MONIQUE EMMANUEL [facility] Start: 08-18-2022 End: 08-19-2022 ambulatory MONIQUE EMMANUEL Facility:[facility] Start: 08-18-2022 End: 08-19-2022 Encounter for general adult medical examination without abnormal findings MONIQUE EMMANUEL Facility:[facility] Start: 06-01-2022 End: 06-01-[address] WESTLEY JHA Facility:[facility] Start: 03-22-2022 End: 03-22-2022 ambulatory Monique Dudley Other [facility] Other Start: 03-22-2022 Office outpatient vi sit 15 minutes Monique Dudley [facility] Procedures Date Procedure Procedure Detail Performing Clinician Start: 05-16-2024 Debridement [employer] SUPERVISOR-C Shruti Emmanuel Work Phone: Start: 05-16-2024 X-ray of left foot [employer] SUPERVISOR-C Monique Emmanuel Work Phone: Start: 02-27-2024 Plain X-ray of right shoulder [employer] SUPERVISOR-C Monique Emmanuel Work Phone: Cholecystectomy Pato Americo pulliam Plan of Treatment Date Care Activity Detail Author Start: 05-16-2024 [facility] Start: 05-16-2024 [facility] Patient Education Know your Meds [facility] Work Phone: Payers Date Payer Category Payer Self-pay [id number] 1990 Unknown [id number] 2.16.84 [id number] 1988 Unknown [id number] 2.16.84 0.1.729531.3.579.2.593 1988 Unknown [id number] 2.16.84 0.1.924984.3.579.2.593 1988 Unknown [id number] 2.16.84 0.1.912528.3.579.2.593 1988 Unknown [id number] 2.16.84 0.1.954124.3.579.2.593 1988 Unknown [id number] 2.16.84 0.1.492792.3.579.2.593 1988 Unknown [id number] 2.16.84 0.1.995460.3.579.2.593 1988 Unknown [id number] 2.16.84 0.1.187270.3.579.2.593 1988 Unknown [id number] 2.16.8 40.1.020662.3.579.2.727 1988 Unknown [id number] 2.16.84 0.1.493239.3.579.2.9 1988 Unknown [id number] 2.16.84 0.1.656088.3.579.2.9 1988 Unknown [id number] 2.16.84 0.1.951393.3.579.2.9 1988 Unknown [id number] 2.16.84 0.1.448214.3.579.2.1259 1988 Unknown [id number] 2.16.84 0.1.407381.3.579.2.9 1988 Unknown [id number] 2.16.84 0.1.846928.3.579.2.[address] [facility] [id number] 2.16.840.1.352027.19 Unknown [id number] 2.16.8 40.1.710507.3.579.2.531 Unknown [id number] 2.16.8 40.1.609390.3.579.2.531 Social History Date Type Detail Facility Unknown if ever smoked [facility] Other Sex Assigned At [facility] Start: 10-25-2018 End: 05-16-2024 Tobacco smoking status [facility] Never smoked tobacco (finding) [facility] Start: 1990 Sex Assigned At Female F [facility] Tobacco smoking status No Smokin g Status Entered [facility] Goals Date Patient Goal Desired Activity /State Functional Status Date Assessment Result Facility 04-25-2024 Functional Status No [facility] Evaluation note 03-22-2022 Note Date & [...] no improvement in 5 to 7 days. [facility] Other Evaluation + Plan note Note Date & Type Note Facility Evaluation + Plan note Future Appointments Appointment Date:05/09/2024 07:30:00 AM Scheduled Provider: Location:[facility] Appointment Type:Surgery [facility] Evaluation note Note Date & Type Note Facility Evaluation note No assessment information [facility] Work Phone: History general Narrative - Reported Note Date & Type Note Facility History general Narrative - Reported Type Medical History Acquired hypothyroidism Medical History vitamin D deficiency Surgical History cholecystectomy Hospitalization History No Hospitalization histo ry information [facility] [employer] Other Hospital course Narrative Note Date & Type Note Facility Hospital course Narrative No data available for this section [facility] Hospital Discharge instructions Note Date & Type Note Facility Hospital Discharge instructions No data available for this section [facility] Hospital Discharge instructions Note Date & [...] operative site FOLLOW UP Phone numbers: Office [phone] [ ] [facility] Work Phone: Progress note Note Date & Type Note Facility Progress note No data available for this section [facility] Summary Purpose Family History No Family History Records Found Relationship Condition Age at Onset Recorded Date/T luis alfredo Not Specified Unknown Heart disease Unknown Advance Directives No Advanced Directives Records Found Advance Directive Response Recorded Date/ Time Advance Directives No February 20 1:53pm Chief Complaint and Reason for Visit [...] content) DATE CREATED AUTHOR [facility]/06/2023 [facility] DATE CREATED AUTHOR AUTHOR'S ORGANIZ ATION 04/26/2024 [facility] DATE CREATED AUTHOR AUTHOR'S ORGANIZ ATION 05/25/2024 [facility] DATE CREATED AUTHOR AUTHOR'S ORGANIZ ATION 07/01/2024 [facility] [employer] Care Teams (unrecognized sec tion and content) Team Status: Active Member Role Status Dates LORI Alvarez Primary Care Provider Active Team Status: Inactive Member Role Status Dates Monique Octavia , [employer] ROOM SUPERVISOR-C Attending Provider Active S tart: February 27, [...] BE BASED ON THE PRIMARY CLINICAL RECORDS. [employer] provides no warranty or guarantee of the accuracy or completeness of information in this document.
[2024-07-11 13:01] LABS: Internal Control Within Normal Limits; SARS-CoV-2 Ag NEGATIVE (NEGATIVE)
== END 2024-07-11 11:42 | disposition home or self-care (01) ==
LOC: LAB 11:41
PROVIDERS: PCP Nurse Practitioner Family; Visit Provider Nurse Practitioner Family
DX: B34.9 Viral infection, unspecified (principal)
CPT/HCPCS: 87811

== ENCOUNTER 2024-08-16 14:46 | Outpatient (OUT) | payer BC, SELFPAY ==
--- OUTSIDE RECORDS SUMMARY | 2024-08-16 14:56 | XMS_ITS | CCD ---
Author Organization [facility] Team Providers Care Shopping Inspector Name Role Phone Monique Dudley Unavailable MONIQUE EMMANUEL Attending Unavailable LIEN, MONIQUE Primary Care Unavailable LIEN, MONIQUE Admitting Unavailable LIEN, MONIQUE Admitting Unavailable LIEN, MONIQUE Attending Unavailable LIEN, MONIQUE Consulting Unavailable LIEN, MONIQUE Primary Care Unavailable LIEN, MONIQUE Admitting Unavailable LIEN, MONIQUE Attending Unavailable LINE, MONIQUE Consulting Unavailable LIEN, MONIQUE Primary Care [...] Consulting Unavailsandra Dudley NP-C Monique Attending Provider [phone] LORI Emmanuel Primary Care Provider MONIQUE EMMANUEL Primary Care Physician [phone] Pato Koehler Referring Unavailable Pato Koehler Attending Unavailable Pato Koehler Admitting Unavailable Pato Koehler Referring Unavailable Pato Koehler Attending Unavailable Pato Koehler Admitting Unavailable SHITAL Koehler Attending Provider Monique Emmanuel Primary Care Unavailable Pato Koehler Attending Unavailable Pato Koehler Admitting Unavailable Monique Dudley Attending Unavailable Monique Dudley Admitting Unavailable Monique Emmanuel Primary Care Unavailable PATO KOEHLER Attending Unavailable PATO KOEHLER Attending Unavailable PATO KOEHLER Attending Unavailable PATO KOEHLER Attending Unavailable PATO KOEHLER Attending Unavailable PATO KOEHLER Attending Unavailable PATO KOEHLER Attending Unavailable PATO KOEHLER Attending Unavailable PATO KOEHLER Referring Unavailable NICHELLE CAMARGO Attending Unavailable MONIQUE EMMANUEL Referring Unavailable Allergies Allergy Classification Reported Allergen(s) Allergy Type Date of Onset Reaction(s) Facility (1 source) Egg protein Drug allergy [facility] Other (1 source) Sulf-10 Drug allergy [facility] Other (1 source) Sulfonamides (Antibiotic) Drug allergy (disorder) 3 [facility] (4 sources) Sulfonamides (Antibiotic); Translations: [Sulfa (Sulfonamide Antibiotics)] Allergy to substance 4 [facility] (4 sources) Egg Derived; Translations: [Egg Derived] Allergy to substance 4 [facility] (3 sources) Sulfonamides (Antibiotic); Translations: [sulfa drugs] Drug allergy [facility] Medications Current Medications Medication Drug Class(es) [...] 0, Sleep Start Date: 04/25/24 Status: Ordered [facility] (3 sources) Start: 02-27-2024 [facility] Active 0 .Route 1 February [...] Creatinine Clr Calc Pharmacy 161.75 Normal [facility] Comment on above: Result Comment: PERF ORMED BY: [address] [address] PATHOLOGIST POWER HOUSE ENGINEER SIMEON BIGGS M.D. Performed By: #### B MP #### [place] [address] [place] GFR/1.73 sq M.predicted MDRD (S/P/Bld) [Vol rate/Area] mL/min/{1.73_m2} Normal [facility] Comment on above: Performed By: #### B MP #### [facility] [address] Calcium [Mass/volume] in Ser um or PlasmaOrdered By: Melvin Ruano on 05-16-2024 Calcium [Mass/Vol] 8.8 mg/dL Normal 8.6-10.3 [facility] Comment on above: Performed By: #### B MP #### [facility] [address] Capillary blood glucose jaswinder urement by glucometer (mass/volume)Ordered By: Pato Koehler on 05-16-2024 Glucose [Mass/Vol] 106 mg/dL Normal [facility] Comment on above: Random Glucose Refer ence Range is dependent on time and content of last meal. Glucose of more than 200 mg/dL in a nonstressed, ambulatory subject supports the diagnosis of Diabetes Mellitus. Result Comment: [facility] Glucose Reference Range is dependent on time and content of last meal. Glucose of more than 200 mg/dL in a nonstressed, ambulatory subject supports the diagnosis of Diabetes Mellitus. Performed By: #### G BARAK #### Point of Care testing , Carbon dioxide, total [Moles /volume] in Serum or PlasmaOrdered By: Melvin Ruano on 05-16-2024 CO2 [Moles/Vol] 27.3 mmol/L Normal 21.0-31.0 [facility] Comment on above: Performed By: #### B MP #### [facility] [address] [place] [address] [place] Chloride [Moles/volume] in S nikkie or PlasmaOrdered By: Melvin Ruano on 05-16-2024 Chloride [Moles/Vol] 105 mmol/L Normal 98-107 [facility] Comment on above: Performed By: #### B MP #### [facility] [address] [place] [id number] [place] Creatinine [Mass/volume] in Serum or PlasmaOrdered By: Melvin Ruano on 05-16-2024 Creatinine [Mass/Vol] 0.66 mg/dL Normal 0.60-1.20 [facility] Comment on above: Performed By: #### B MP #### [facility] [address] Glucose Poct Glucometerson 0 05-16-2024 Commemt1 Glu2: Cleaned Meter Normal [facility] Comment on above: Result Comment: PERF ORMED BY: [place] [address] PATHOLOGIST POWER HOUSE ENGINEER SIMEON BIGGS M.D. Performed By: #### G LULS #### Point of Care testing , Glucose [Mass/volume] in Ser um or PlasmaOrdered By: Melvin Ruano on 05-16-2024 Glucose [Mass/Vol] 107 mg/dL High 70-100 [facility] Comment on above: ADA recommended refe rence rangeRandom Glucose Reference Range is dependent on time and content of last meal. Glucose of more than 200 mg/dL in a nonstressed, ambulatory subject supports the diagnosis of Diabetes Mellitus. Result Comment: [place] [facility] Glucose Reference Range is dependent on time and content of last meal. Glucose of more than 200 mg/dL in a nonstressed, ambulatory subject supports the diagnosis of Diabetes Mellitus. ADA recommended reference range Performed By: #### B MP #### [address] HCG ( test) IA.rapi d Ql (U)Ordered By: Melvin Ruano on 05-16-2024 HCG ( test) Ql (U) Negative [facility] HCG,Urineon 05-16-2024 Beta HCG ( test) Ql (U) Negative Normal [facility] Comment on above: Result Comment: PERF ORMED BY: [place] [address] PATHOLOGIST POWER HOUSE ENGINEER SIMEON BIGGS M.D. Performed By: #### U HCG #### [place] [address] [place] Jason 05-16-2024 L Specimen: [id number] Received: 05/16/24 Status: KESHA Romo Num: [id number] Spec Type: Surgical Subm Dr: Pato Koehler DPM Tissues: A Bone Fragments - Other than Path Fracture (ACCESSORY BONE LT FOOT) Procedures: HE, Gross/Micro L3, Decalcification Age/ Patient Sex Location Account Attending Physician Noel Paul 33/F [place] [id number] Pato Koehler DPM SPEC NUM: [id number] RECD: 05/16/24 STATUS: KESHA ROMO NUM: [id number] BRUNO: 05/16/24- SUBM DR: Pato Koehler DPM ENTERED: 05/16/[address] [facility] [address]: SPEC TYPE: Surgical DEPT: [...] areas of necrosis or cysts are present. [place] sections are submitted following decalcification in A1. CPT Codes 31234, 64928 Specimen: [id number] Received: 05/16/24-1257 Status: KESHA Romo Num: [id number] Spec Type: Surgical Subm Dr: Pato Koehler DPM Tissues: A Bone Fragments - Other than Path Fracture (ACCESSORY BONE LT FOOT) Procedures: HE, Gross/Micro L3, Decalcification Patient: Noel Paul [id number] (Continued) Signed (signature on file) Tabatha Dupree MD 05/19/24 1640 Normal [facility] No Panel InformationOrdered By: Pato Koehler on 05-16-2024 Bedside Glucose Comment Glu2: cleaned meter [facility] No Panel InformationOrdered By: Melvin Ruano on 05-16-2024 Estimated GFR (CKD-EPI) > 60.0 mL/Min [facility] Creatinine Clearance (Chem 161.75 [facility] Potassium [Moles/volume] in Serum or PlasmaOrdered By: Melvin Ruano on 05-16-2024 Potassium [Moles/Vol] 3.8 mmol/L Normal 3.5-5.1 [facility] Comment on above: Performed By: #### B MP #### [address] Serum or plasma anion gap de terminationOrdered By: Melvin Ruano on 05-16-2024 Anion gap [Moles/Vol] 9.5 mmol/L Normal 6.0-15.0 [facility] Comment on above: Performed By: #### B MP #### [address] Sodium [Moles/volume] in Ser um or PlasmaOrdered By: Melvin Ruano on 05-16-2024 Sodium [Moles/Vol] 138 mmol/L Normal 136-145 [facility] Comment on above: Performed By: #### B MP #### [address] Urea nitrogen [Mass/volume] in Serum or PlasmaOrdered By: Melvin Ruano on 05-16-2024 Urea nitrogen [Mass/Vol] 17 mg/dL Normal 7-25 [facility] Comment on above: Performed By: #### B MP #### [address] XR foot LT 2Von 05-16-2024 XR foot LT 2V [facility] Main [place] [address] [place] [address] XRay Report Signed Patient: Noel Paul MR#: [id number] : 1990 Acct:[id number] Age/Sex: 33 / F ADM Date: 05/16/24 Loc: [place] Room: Type: [facility] Attending Dr: Pato Koehler DPM Copies to: [...] Leisa Adames M.D.05/16/2024 3:20 PM Dictation Location: [place] [address] Transcribed By: [facility] 05/16/24 1520 Dictated By: Leisa Adames MD 05/16/24 1515 Signed By: 05/16/24 1520 Normal [facility] CBC w/ Auto Diffon 4 Basophils/100 WBC (Bld) 0.5 % Normal 0.0-2.0 F [facility] Comment on above: Performed By: #### 2 [id number] #### [facility] [address] [place] [address] Basophils/Leukocytes Auto (Bld) [Pure # fraction] 0.1 E9/L Normal 0.0-0.2 [facility] Comment on above: Performed By: #### 2 [id number] #### [facility] [address] [place] [address] Eosinophils (Bld) [#/Vol] 0.3 E9/L Normal 0.0-0.5 [facility] Comment on above: Performed By: #### 2 [id number] #### [facility] [address] [place] [address] Eosinophils/100 WBC (Bld) 2.9 % Normal 0.0-8.0 [facility] Comment on above: Performed By: #### 2 [id number] #### [facility] [address] [place] [address] Erythrocyte distribution width (RBC) [Ratio] 15.6 % High 10.9-14.2 [facility] Comment on above: Performed By: #### 2 [id number] #### [facility] [address] [place] [address] Hematocrit (Bld) [Volume fraction] 39.9 % Normal 34.0-46.0 [facility] Comment on above: Performed By: #### 2 [id number] #### [facility] [address] [place] [address] Hemoglobin (Bld) [Mass/Vol] 12.8 g/dL Normal 12.0-16.0 [facility] Comment on above: Performed By: #### 2 [id number] #### [facility] [address] [place] [address] Lymphocytes (Bld) [#/Vol] 2.3 E9/L Normal 1.0-4.0 [facility] Comment on above: Performed By: #### 2 [id number] #### [facility] [address] [place] [address] Lymphocytes/100 WBC (Bld) 20.9 % Normal 14.0-50.0 [facility] Comment on above: Performed By: #### 2 800183 #### [facility] [address] [place] [address] MCH (RBC) [Entitic mass] 25.4 pg Low 27.0-34.0 [facility] Comment on above: Performed By: #### 2 [id number] #### [facility] [address] [place] [address] MCHC (RBC) [Mass/Vol] 32.2 g/dL Normal 31.4-36.0 [facility] Comment on above: Performed By: #### 2 [id number] #### [facility] [address] [place] [address] MCV (RBC) [Entitic vol] 79.0 fL Low 80.0-100.0 F [facility] Comment on above: Performed By: #### 2 [id number] #### [facility] [address] [place] [address] Monocytes (Bld) [#/Vol] 0.7 E9/L Normal 0.2-1.0 F [facility] Comment on above: Performed By: #### 2 436221 #### [facility] [address] [place] [address] Neutrophils (Bld) [#/Vol] 7.7 E9/L High 2.0-7.5 [facility] Comment on above: Performed By: #### 2 877215 #### [facility] [address] [place] [address] Neutrophils/100 WBC (Bld) 69.3 % Normal 36.0-75.0 [facility] Comment on above: Performed By: #### 2 973635 #### [facility] [address] [place] [address] Platelet mean volume (Bld) [Entitic vol] 8.3 fL Normal 6.4-10.8 [facility] Comment on above: Performed By: #### 2 520878 #### [facility] [address] [place] [address] Platelets (Bld) [#/Vol] 346.0 E9/L Normal 150.0-500.0 [facility] Comment on above: Performed By: #### 2 [id number] #### [facility] [address] [place] [address] RBC (Bld) [#/Vol] 5.1 E12/L Normal 4.3-5.9 [facility] Comment on above: Performed By: #### 2 197627 #### [facility] [address] [place] [address] WBC corrected for nucl RBC Auto (Bld) [#/Vol] 11.1 E9/L High 4.0-11.0 [facility] Comment on above: Performed By: #### 2 699956 #### [facility] [address] [place] [address] Consent for Treatmenton 03-29 Consent for Treatment [id number] #1.00TIFF Normal [facility] HEMATOLOGYOrdered By: SYSTEM SYSTEM on 04-25-2024 [...] Remisol Heme Physician Orderon 04-18-2024 Physician Order [id number] #1.00TIFF Normal [facility] XR shoulder RT min 2V*on XR shoulder RT min 2V* [facility] Main [place] [address] [place] [address] XRay Report Signed Patient: Noel Paul MR#: [id number] : 1990 Acct:[id number] Age/Sex: 33 / F ADM Date: 02/27/24 Loc: XDUC Room: Type: [facility] Attending Dr: Monique SANDOVAL Copies to: LORI [...] Leisa Adames M.D.02/27/2024 6:14 PM Dictation Location: [place] [address] Transcribed By: [facility] 02/27/241813 Dictated By: Leisa Adames MD 02/27/241812 Signed By: 02/27/241813 Normal [facility] GLYCOHEMOGLOBIN A1Con 2022 ADA RECOMMENDATION SEE BELOW Normal [facility] Comment on above: Result Comment: ADA RECOMMENDED LIMIT 4.0 - 6.0 ADA THERAPEUTIC TARGET < 7.0 ACTION SUGGESTED > 7.0 Performed By: #### A 1C #### [facility] [address] [place] [address] [address] Benito Dupree Glucose [Mass/Vol] 105 mg/dL Normal [facility] Comment on above: Performed By: #### A 1C #### [facility] [address] [place] [address] [address] Benito Dupree HbA1c (Bld) [Mass fraction] 5.3 % Normal 4.5-6.2 [facility] Comment on above: Performed By: #### A 1C #### [facility] [address] [place] [address] [address] Benito Dupree Covid-19 PCR ([facility])on SARS-CoV-2 (COVID-19) RNA MUKUND+probe Ql (Unsp spec) Not detected Normal NOT DETECTED [facility] Comment on above: Result Comment: This test is not yet approved or cleared by the [place] FDA. When there are no FDA-approved or cleared tests available, and other criteria are met, FDA can make tests available under an emergency access mechanism called an Emergency Use Authorization (EUA). The EUA for this test is supported by the [place] of Health and Human Service's (HHS's) declaration [...] SARS-CoV-2. Performed By: #### C VDTB #### [facility] [address] [place] [address] Dr. Benito Dupree INFLUENZA A AND B AGon 01-05 INFLUANEGH SEE BELOW Normal [facility] Comment on above: Result Comment: Nega tive for Flu A protein angiten. Infection due to Flu A cannot be ruled out. Flu A angiten in the sample may be below the detection limit of the test. Performed By: #### I NFLUAB #### [facility] [address] [place] [address] Dr. Benito Dupree [facility] SEE BELOW Normal [facility] Comment on above: Result Comment: Nega tive for Flu B protein antigen. Infection due to Flu B cannot be ruled out. Flu B antigen in the sample may be below the detection limit of the test. Performed By: #### I NFLUAB #### [facility] [address] [place] [address] Dr. Benito Dupree INFLUENZA A AG Negative Normal NEGATIVE SEE COMMENT [facility] Comment on above: Performed By: #### I NFLUAB #### [facility] [address] [place] [address] Dr. Benito Dupree INFLUENZA B AG Negative Normal NEGATIVE SEE COMMENT [facility] Comment on above: Performed By: #### I NFLUAB #### [facility] [address] [place] [address] Dr. Benito Dupree GLYCOHEMOGLOBIN A1Con 2021 ADA RECOMMENDATION SEE BELOW Normal [facility] Comment on above: Result Comment: ADA RECOMMENDED LIMIT 4.0 - 6.0 ADA THERAPEUTIC TARGET < 7.0 ACTION SUGGESTED > 7.0 Performed By: #### A 1C #### [facility] [address] [place] [address] Dr. Benito Dupree Glucose [Mass/Vol] 143 mg/dL Normal [facility] Comment on above: Performed By: #### A 1C #### [facility] [address] [place] [address] Dr. Benito Dupree HbA1c (Bld) [Mass fraction] 6.6 % Critically high 4.5-6.2 [facility] Comment on above: Performed By: #### A 1C #### [facility] [address] [place] [address] Dr. Benito Dupree LIPID PROFILEon 11-15-2022 CHOL-HDL RATIO NORM SEE BELOW Normal [facility] Comment on above: Result Comment: 3.3 - 4.4 LOW RISK 4.4 - 7.1 AVERAGE RISK 7.1 - 11.0 MODERATE RISK >11.0 HIGH RISK Performed By: #### I NFLUAB #### [facility] [address] [place] [address] Dr. Benito Dupree Cholesterol [Mass/Vol] 154 mg/dL Normal <=200 Th [facility] Comment on above: Performed By: #### I NFLUAB #### [facility] [address] [place] [address] Dr. Benito Dupree Cholesterol in HDL [Mass/Vol] 29 mg/dL Critically low 40-60 [facility] Comment on above: Performed By: #### I NFLUAB #### [facility] [address] [place] [address] Dr. Benito Dupree Cholesterol in LDL [Mass/Vol] 98.2 mg/dL Normal [facility] Comment on above: Performed By: #### I NFLUAB #### [facility] [address] [place] [address] Dr. Benito Dupree Cholesterol.total/Lisandra sterol in HDL [Mass ratio] 5.3 {ratio} Normal [facility] Comment on above: Performed By: #### I NFLUAB #### [facility] [address] [place] [address] Dr. Benito Dupree HDL NORMAL > or = 60 mg/dl - LOW CARDIOVASCULAR RISK <40 mg/dl - HIGH CARDIOVASCULAR RISK Normal [facility] Comment on above: Performed By: #### I NFLUAB #### [facility] [address] [place] [address] Dr. Benito Dupree LDL CALC NORMAL SEE BELOW Normal [facility] Comment on above: Result Comment: <100 mg/dl OPTIMAL 100 - 129 mg/dl NEAR OR ABOVE OPTIMAL 130 - 159 mg/dl BORDERLINE HIGH 160 - 189 mg/dl HIGH >190 mg/dl VERY HIGH Performed By: #### I NFLUAB #### [facility] [address] [place] [address] Dr. Benito Dupree Triglyceride [Mass/Vol] 134 mg/dL Normal <=150 T [facility] Comment on above: Performed By: #### I NFLUAB #### [facility] [address] [place] [address] Dr. Benito Dupree VLDL CALC 26.8 mg/dL Normal [facility] Comment on above: Performed By: #### I NFLUAB #### [facility] [address] [place] [address] Dr. Benito Dupree INSULINon 08-19-2022 Insulin 24.3 uIU/mL Normal 2.6-24.9 [facility] Comment on above: Performed By: #### I NFLUAB #### [facility] [address] [place] [address] Dr. Benito Dupree T4, T3U, FTI LABCORPon 08-19 Free Thyroxine Index 2.6 Normal 1.2-4.9 [facility] Comment on above: Performed By: #### T HYLC #### [facility] [address] [place] [address] Dr. Benito Dupree T3 Uptake 29 % Normal 24-39 [facility] Comment on above: Performed By: #### T HYLC #### [facility] [address] [place] [address] Dr. Benito Dupree T4 [Mass/Vol] 8.8 ug/dL Normal 4.5-12.0 [facility] Comment on above: Performed By: #### T HYLC #### [facility] [address] [place] [address] Dr. Benito Dupree CBC AUTO DIFFon 08-18-2022 BASO # 0.1 103/ul Normal 0.0-0.1 [facility] Comment on above: Performed By: #### I NFLUAB #### [facility] [address] [place] [address] Dr. Benito Dupree Basophils/100 WBC (Bld) 0.8 % Normal 0.2-2.0 [facility] Comment on above: Performed By: #### I NFLUAB #### [facility] [address] [place] [address] Dr. Benito Dupree EO # 0.3 103/ul Normal 0.0-0.7 [facility] Comment on above: Performed By: #### I NFLUAB #### [facility] [address] [place] [address] Dr. Benito Dupree Eosinophils/100 WBC (Bld) 2.8 % Normal 0.9-7.0 [facility] Comment on above: Performed By: #### I NFLUAB #### [facility] [address] [place] [address] Dr. Benito Dupree Erythrocyte distribution width (RBC) [Ratio] 15.4 % Critically high 11.0-15.0 [facility] Comment on above: Performed By: #### I NFLUAB #### [facility] [address] [place] [address] Dr. Benito Dupree Hematocrit (Bld) [Volume fraction] 43.7 % Normal 36.0-48.0 [facility] Comment on above: Performed By: #### I NFLUAB #### [facility] [address] [place] [address] Dr. Benito Dupree Hemoglobin (Bld) [Mass/Vol] 14.2 g/dL Normal 12.0-16.0 [facility] Comment on above: Performed By: #### I NFLUAB #### [facility] [address] [place] [address] Dr. Benito Dupree IG # 0.08 10e3/ul Critically high 0.00-0.03 [facility] Comment on above: Performed By: #### I NFLUAB #### [facility] [address] [place] [address] Dr. Benito Dupree IG % 0.9 % Critically high 0.0-0.5 [facility] Comment on above: Performed By: #### I NFLUAB #### [facility] [address] [place] [address] Dr. Benito Dupree LYMPH # 2.3 103/ul Normal 1.2-3.8 [facility] Comment on above: Performed By: #### I NFLUAB #### [facility] [address] [place] [address] Dr. Benito Dupree Lymphocytes/100 WBC (Bld) 24.3 % Normal 20.5-60.0 [facility] Comment on above: Performed By: #### I NFLUAB #### [facility] [address] [place] [address] Dr. Benito Dupree MANUAL DIFF REQ NO Normal [facility] Comment on above: Performed By: #### I NFLUAB #### [facility] [address] [place] [address] Dr. Benito Dupree MCH (RBC) [Entitic mass] 26.1 pg Critically low 26.7-34.0 [facility] Comment on above: Performed By: #### I NFLUAB #### [facility] [address] [place] [address] Dr. Benito Dupree MCHC (RBC) [Mass/Vol] 32.5 g/dL Normal 29.9-35.2 [facility] Comment on above: Performed By: #### I NFLUAB #### [facility] [address] [place] [address] Dr. Benito Dupree MCV (RBC) [Entitic vol] 80.2 fL Critically low 81.0-99. 0 [facility] Comment on above: Performed By: #### I NFLUAB #### [facility] [address] [place] [address] Dr. Benito Dupree MONO # 0.5 103/ul Normal 0.3-0.8 [facility] Comment on above: Performed By: #### I NFLUAB #### [facility] [address] [place] [address] Dr. Benito Dupree Monocytes/100 WBC (Bld) 5.2 % Normal 1.7-12.0 [facility] Comment on above: Performed By: #### I NFLUAB #### [facility] [address] [place] [address] Dr. Benito Dupree NEUT # 6.1 103/ul Normal 1.4-6.5 [facility] Comment on above: Performed By: #### I NFLUAB #### [facility] [address] [place] [address] Dr. Benito Dupree Neutrophils/100 WBC (Bld) 66.0 % Normal 43.0-75.0 [facility] Comment on above: Performed By: #### I NFLUAB #### [facility] [address] [place] [address] [address] Benito Dupree Platelet mean volume (Bld) [Entitic vol] 9.9 fL Normal 9.5-13.5 [facility] Comment on above: Performed By: #### I NFLUAB #### [facility] [facility] [address] [address] [address] Benito Dupree PLT 291 103/ul Normal 150-450 [facility] Comment on above: Performed By: #### I NFLUAB #### [facility] [address] [place] [address] Dr. Benito Dupree RBC 5.45 106/ul Critically high 4.20-5.40 [facility] Comment on above: Performed By: #### I NFLUAB #### [facility] [address] [address] [address] Benito Dupree WBC 9.3 103/ul Normal 4.0-11.0 [facility] Comment on above: Performed By: #### I NFLUAB #### [facility] [address] [place] [address] Dr. Benito Dupree DIRECT LDLon 08-18-2022 Cholesterol in LDL [Mass/Vol] 50 mg/dL Normal [facility] Comment on above: Performed By: #### T HYLC #### [facility] [address] [place] [address] Dr. Benito Dupree DLDL NORMAL SEE BELOW Normal [facility] Comment on above: Result Comment: <100 mg/dl OPTIMAL 100 - 129 mg/dl NEAR OR ABOVE OPTIMAL 130 - 159 mg/dl BORDERLINE HIGH 160 - 189 mg/dl HIGH >190 mg/dl VERY HIGH Performed By: #### T HYLC #### [facility] [address] [place] [address] Dr. Benito Dupree GLYCOHEMOGLOBIN A1Con 2021 ADA RECOMMENDATION SEE BELOW Normal [facility] Comment on above: Result Comment: ADA RECOMMENDED LIMIT 4.0 - 6.0 ADA THERAPEUTIC TARGET < 7.0 ACTION SUGGESTED > 7.0 Performed By: #### A 1C #### [facility] [address] [place] [address] Dr. Benito Dupree Glucose [Mass/Vol] 332 mg/dL Normal [facility] Comment on above: Performed By: #### A 1C #### [facility] [address] [place] [address] Dr. Benito Dupree HbA1c (Bld) [Mass fraction] 13.2 % Critically high 4.5-6.2 [facility] Comment on above: Performed By: #### A 1C #### [facility] [address] [place] [address] Dr. Benito Dupree IRONon 08-18-2022 Iron [Mass/Vol] 53.0 ug/dL Normal 50.0-170.0 [facility] Comment on above: Performed By: #### I NFLUAB #### [facility] [address] [place] [address] Dr. Benito Dupree LIPID PROFILEon 08-18-2022 CHOL-HDL RATIO NORM SEE BELOW Normal [facility] Comment on above: Result Comment: 3.3 - 4.4 LOW RISK 4.4 - 7.1 AVERAGE RISK 7.1 - 11.0 MODERATE RISK >11.0 HIGH RISK Performed By: #### T HYLC #### [facility] [address] [place] [address] Dr. Benito Dupree Cholesterol [Mass/Vol] 260 mg/dL Critically high <=200 [facility] Comment on above: Performed By: #### T HYLC #### [facility] [address] [place] [address] Dr. Benito Dupree Cholesterol in HDL [Mass/Vol] 23 mg/dL Critically low 40-60 [facility] Comment on above: Performed By: #### T HYLC #### [facility] [address] [place] [address] Dr. Benito Dupree Cholesterol.total/Lisandra sterol in HDL [Mass ratio] 11.3 {ratio} Normal [facility] Comment on above: Performed By: #### T HYLC #### [facility] [address] [address] [address] Benito Dupree HDL NORMAL > or = 60 mg/dl - LOW CARDIOVASCULAR RISK <40 mg/dl - HIGH CARDIOVASCULAR RISK Normal [facility] Comment on above: Performed By: #### T HYLC #### [facility] [address] [address] [address] Benito Dupree Triglyceride [Mass/Vol] 1711 mg/dL Critically high <=150 [facility] Comment on above: Performed By: #### T HYLC #### [facility] [address] [address] [address] Benito Dupree VLDL CALC 342.2 mg/dL Normal [facility] Comment on above: Performed By: #### T HYLC #### [facility] [address] [place] [address] Dr. Benito Dpuree PROF 14(COMP METB)on 022 Albumin [Mass/Vol] 3.2 g/dL Critically low 3.4-5.0 [facility] Comment on above: Performed By: #### T HYLC #### [facility] [address] [place] [address] Dr. Benito Dupree Albumin/Globulin [Mass ratio] 0.7 {ratio} Normal [facility] Comment on above: Performed By: #### T HYLC #### [facility] [address] [place] [address] Dr. Benito Dupree ALP [Catalytic activity/Vol] 92 U/L Normal 46-116 [facility] Comment on above: Performed By: #### T HYLC #### [facility] [address] [place] [address] Dr. Benito Dupree ALT [Catalytic activity/Vol] 41 U/L Normal 14-59 [facility] Comment on above: Performed By: #### T HYLC #### [facility] [address] [address] [address] Benito Dupree Anion gap [Moles/Vol] 14.1 mmol/L Normal [facility] Comment on above: Performed By: #### T HYLC #### [facility] [address] [address] [address] Benito Dupree AST [Catalytic activity/Vol] 16 U/L Normal 15-37 [facility] Comment on above: Performed By: #### T HYLC #### [facility] [address] [address] [address] Benito Dupree Bilirubin [Mass/Vol] 0.9 mg/dL Normal 0.2-1.0 [facility] Comment on above: Performed By: #### T HYLC #### [facility] [address] [address] [address] Benito Dupree Calcium [Mass/Vol] 9.1 mg/dL Normal 8.5-10.1 [facility] Comment on above: Performed By: #### T HYLC #### [facility] [address] [place] [address] Dr. Benito Dupree Chloride [Moles/Vol] 97 mmol/L Critically low 98-107 [facility] Comment on above: Performed By: #### T HYLC #### [facility] [address] [address] [address] Benito Dupree CO2 [Moles/Vol] 24.9 mmol/L Normal 21.0-32.0 [facility] Comment on above: Performed By: #### T HYLC #### [facility] [address] [place] [address] Dr. Benito Dupree Creatinine [Mass/Vol] 0.67 mg/dL Normal 0.55-1.02 [facility] Comment on above: Performed By: #### T HYLC #### [facility] [address] [place] [address] Dr. Benito Dupree EGFR-AF BAHRAINI >60 Normal >=60 [facility] Comment on above: Performed By: #### T HYLC #### [facility] [address] [place] [address] Dr. Benito Dupree EGFR-NON AF BAHRAINI >60 Normal >=60 [facility] Comment on above: Performed By: #### T HYLC #### [facility] [address] [address] [address] Benito Dupree Globulin (S) [Mass/Vol] 4.6 g/dL Normal [facility] Comment on above: Performed By: #### T HYLC #### [facility] [address] [place] [address] Dr. Benito Dupree Glucose [Mass/Vol] 402 mg/dL Critically high 74-106 [facility] Comment on above: Performed By: #### T HYLC #### [facility] [address] [place] [address] Dr. Benito Dupree Potassium [Moles/Vol] 4.0 mmol/L Normal 3.5-5.1 [facility] Comment on above: Performed By: #### T HYLC #### [facility] [address] [place] [address] Dr. Benito Dupree Protein [Mass/Vol] 7.8 g/dL Normal 6.4-8.2 [facility] Comment on above: Performed By: #### T HYLC #### [facility] [address] [place] [address] Dr. Benito Dupree Sodium [Moles/Vol] 132 mmol/L Critically low 136-145 [facility] Comment on above: Performed By: #### T HYLC #### [facility] [address] [place] [address] Dr. Benito Dupree Urea nitrogen [Mass/Vol] 10.0 mg/dL Normal 7.0-18.0 [facility] Comment on above: Performed By: #### T HYLC #### [facility] [address] [place] [address] Dr. Benito Dupree Urea nitrogen/Creatinine [Mass ratio] 14.9 mg/mg Normal [facility] Comment on above: Performed By: #### T HYLC #### [facility] [address] [place] [address] Dr. Benito Dupree TSHon 08-18-2022 TSH 3.676 uIU/mL Normal 0.358-3.740 [facility] Comment on above: Performed By: #### T HYLC #### [facility] [address] [place] [address] Dr. Benito Dupree VITAMIN D 25 OHon 08-18-2022 VIT D 25-OH 13.9 ng/mL Normal [facility] Comment on above: Performed By: #### I NFLUAB #### [facility] [address] [place] [address] Dr. Benito Dupree VIT D RANGES SEE BELOW Normal [facility] Comment on above: Result Comment: <20 ng/mL Vit D deficient 20 - <30 ng/mL Vit D insufficient 30 - 100 ng/mL Vit D sufficient >100 ng/mL Potential Toxicity Performed By: #### I NFLUAB #### [facility] [address] [place] [address] Dr. Benito Dupree AMYLASEon 06-01-2022 Amylase [Catalytic activity/Vol] 29 U/L Normal 25-115 [facility] Comment on above: Performed By: #### I NFLUAB #### [facility] [address] [place] [address] Dr. Benito Dupree CBC AUTO DIFFon 06-01-2022 BASO # 0.1 103/ul Normal 0.0-0.1 [facility] Comment on above: Performed By: #### I NFLUAB #### [facility] [address] [place] [address] Dr. Benito Dupree Basophils/100 WBC (Bld) 0.5 % Normal 0.2-2.0 [facility] Comment on above: Performed By: #### I NFLUAB #### [facility] [address] [place] [address] Dr. Benito Dupree EO # 0.3 103/ul Normal 0.0-0.7 [facility] Comment on above: Performed By: #### I NFLUAB #### [facility] [address] [place] [address] Dr. Benito Dupree Eosinophils/100 WBC (Bld) 2.0 % Normal 0.9-7.0 [facility] Comment on above: Performed By: #### I NFLUAB #### [facility] [address] [place] [address] Dr. Benito Dupree Erythrocyte distribution width (RBC) [Ratio] 15.3 % Critically high 11.0-15.0 [facility] Comment on above: Performed By: #### I NFLUAB #### [facility] [address] [place] [address] Dr. Benito Dupree Hematocrit (Bld) [Volume fraction] 41.5 % Normal 36.0-48.0 [facility] Comment on above: Performed By: #### I NFLUAB #### [facility] [address] [place] [address] Dr. Benito Dupree Hemoglobin (Bld) [Mass/Vol] 12.7 g/dL Normal 12.0-16.0 [facility] Comment on above: Performed By: #### I NFLUAB #### [facility] [address] [place] [address] Dr. Benito Dupree IG # 0.06 10e3/ul Critically high 0.00-0.03 [facility] Comment on above: Performed By: #### I NFLUAB #### [facility] [address] [place] [address] Dr. Benito Dupree IG % 0.4 % Normal 0.0-0.5 [facility] Comment on above: Performed By: #### I NFLUAB #### [facility] [address] [place] [address] Dr. Benito Dupree LYMPH # 1.9 103/ul Normal 1.2-3.8 [facility] Comment on above: Performed By: #### I NFLUAB #### [facility] [address] [place] [address] Dr. Benito Dupree Lymphocytes/100 WBC (Bld) 13.9 % Critically low 20.5-60.0 [facility] Comment on above: Performed By: #### I NFLUAB #### [facility] [address] [place] [address] Dr. Benito Dupree MANUAL DIFF REQ NO Normal [facility] Comment on above: Performed By: #### I NFLUAB #### [facility] [address] [place] [address] Dr. Benito Dupree MCH (RBC) [Entitic mass] 24.7 pg Critically low 26.7-34.0 [facility] Comment on above: Performed By: #### I NFLUAB #### [facility] [address] [place] [address] Dr. Benito Dupree MCHC (RBC) [Mass/Vol] 30.6 g/dL Normal 29.9-35.2 [facility] Comment on above: Performed By: #### I NFLUAB #### [facility] [address] [place] [address] Dr. Benito Dupree MCV (RBC) [Entitic vol] 80.6 fL Critically low 81.0-99. 0 [facility] Comment on above: Performed By: #### I NFLUAB #### [facility] [address] [place] [address] Dr. Benito Dupree MONO # 0.5 103/ul Normal 0.3-0.8 [facility] Comment on above: Performed By: #### I NFLUAB #### [facility] [address] [place] [address] Dr. Benito Dupree Monocytes/100 WBC (Bld) 4.0 % Normal 1.7-12.0 [facility] Comment on above: Performed By: #### I NFLUAB #### [facility] [address] [place] [address] Dr. Benito Dupree NEUT # 10.6 103/ul Critically high 1.4-6.5 [facility] Comment on above: Performed By: #### I NFLUAB #### [facility] [address] [place] [address] Dr. Benito Dupree Neutrophils/100 WBC (Bld) 79.2 % Critically high 43.0-75.0 [facility] Comment on above: Performed By: #### I NFLUAB #### [facility] [address] [place] [address] Dr. Benito Dupree Platelet mean volume (Bld) [Entitic vol] 9.3 fL Critically low 9.5-13.5 [facility] Comment on above: Performed By: #### I NFLUAB #### [facility] [address] [place], [place] [address] Dr. Benito Dupree PLT 391 103/ul Normal 150-450 [facility] Comment on above: Performed By: #### I NFLUAB #### [facility] [address] [place], [place] [address] Dr. Benito Dupree RBC 5.15 106/ul Normal 4.20-5.40 [facility] Comment on above: Performed By: #### I NFLUAB #### [facility] [address] [place], [place] [address] Dr. Benito Dupree WBC 13.4 103/ul Critically high 4.0-11.0 [facility] Comment on above: Performed By: #### I NFLUAB #### [facility] [address] [place], [place] [address] ABD/PELV W CONon [...] WESTLEY JHA Date: 2022-06-01 14:59 Normal [facility] ER URINE PROFILEon 2 Bilirubin Ql (U) Negative Normal NEGATIVE [facility] Comment on above: Performed By: #### U MICRO, ERUR #### [facility] [address] [address] [address] Benito Dupree Clarity (U) SL CLOUDY Abnormal CLEAR [facility] Comment on above: Performed By: #### U MICRO, ERUR #### [facility] [address] [address] [address] Benito Dupree Color (U) YELLOW Normal YELLOW [facility] Comment on above: Performed By: #### U MICRO, ERUR #### [facility] [address] [place] [address] Dr. Benito NAYAKD A micrscopic examination will be performed if indicated. Normal [facility] Comment on above: Performed By: #### U MICRO, ERUR #### [facility] [address] [address] [address] Benito Dupree Glucose Ql (U) Negative Normal NEGATIVE [facility] Comment on above: Performed By: #### U MICRO, ERUR #### [facility] [address] [address] [address] Benito Dupree Hemoglobin Ql (U) LARGE Abnormal NEGATIVE [facility] Comment on above: Performed By: #### U MICRO, ERUR #### [facility] [address] [address] [address] Benito Dupree Ketones Ql (U) Negative Normal NEGATIVE [facility] Comment on above: Performed By: #### U MICRO, ERUR #### [facility] [address] [address] [address] Benito Dupree LEUKOCYTES Negative Normal NEGATIVE [facility] Comment on above: Performed By: #### U MICRO, ERUR #### [facility] [address] [address] [address] Benito Dupree Nitrite Ql (U) Negative Normal NEGATIVE [facility] Comment on above: Performed By: #### U MICRO, ERUR #### [facility] [address] [address] [address] Benito Dupree pH (U) 5.5 [pH] Normal 5-9 [facility] Comment on above: Performed By: #### U MICRO, ERUR #### [facility] [address] [place] [address] Dr. Benito Dupree SPEC GRAVITY 1.010 Normal 1.005-<=1.[address] [place] [address] Comment on above: Performed By: #### U MICRO, ERUR #### [facility] [address] [place] [address] Dr. Benito Dupree UA PROTEIN TRACE Normal NEGATIVE/ TRACE [facility] Comment on above: Performed By: #### U MICRO, ERUR #### [facility] [address] [place] [address] Dr. Benito Dupree UR MICRO IND INDICATED Normal [facility] Comment on above: Performed By: #### U MICRO, ERUR #### [facility] [address] [place] [address] Dr. Benito Dupree Urobilinogen Qn (U) 1.0 {Tuyet'U}/dL Normal 0.2 - 1. 0 [facility] Comment on above: Performed By: #### U MICRO, ERUR #### [facility] [address] [place] [address] Dr. Benito Dupree LACTATE/LACTIC ACIDon 2021 Lactate [Moles/Vol] 1.1 mmol/L Normal 0.4-1.9 [facility] Comment on above: Performed By: #### L ACT #### [facility] [address] [place] [address] Dr. Benito Dupree LIPASEon 06-01-2022 Lipase [Catalytic activity/Vol] 111.0 U/L Normal 73.0-393.0 [facility] Comment on above: Performed By: #### I NFLUAB #### [facility] [address] [place] [address] Dr. Benito Dupree PREG HCG QUALon 06-01-2022 , QUAL Negative Normal NEGATIVE [facility] Comment on above: Performed By: #### P REG #### [facility] [address] [place] [address] Dr. Benito Dupree PROF 14(COMP METB)on 022 Albumin [Mass/Vol] 3.6 g/dL Normal 3.4-5.0 [facility] Comment on above: Performed By: #### I NFLUAB #### [facility] [address] [place] [address] Dr. Benito Dupree Albumin/Globulin [Mass ratio] 0.7 {ratio} Normal [facility] Comment on above: Performed By: #### I NFLUAB #### [facility] [address] [place] [address] Dr. Benito Dupree ALP [Catalytic activity/Vol] 90 U/L Normal 46-116 [facility] Comment on above: Performed By: #### I NFLUAB #### [facility] [address] [place] [address] Dr. Benito Dupree ALT [Catalytic activity/Vol] 39 U/L Normal 14-59 [facility] Comment on above: Performed By: #### I NFLUAB #### [facility] [address] [place] [address] Dr. Benito Dupree Anion gap [Moles/Vol] 13.0 mmol/L Normal [facility] Comment on above: Performed By: #### I NFLUAB #### [facility] [address] [place] [address] Dr. Benito Dupree AST [Catalytic activity/Vol] 25 U/L Normal 15-37 [facility] Comment on above: Performed By: #### I NFLUAB #### [facility] [address] [place] [address] Dr. Benito Dupree Bilirubin [Mass/Vol] 1.1 mg/dL Critically high 0.2-1.0 [facility] Comment on above: Performed By: #### I NFLUAB #### [facility] [address] [place] [address] Dr. Benito Dupree Calcium [Mass/Vol] 9.4 mg/dL Normal 8.5-10.1 [facility] Comment on above: Performed By: #### I NFLUAB #### [facility] [address] [address] [address] Benito Dupree Chloride [Moles/Vol] 99 mmol/L Normal 98-107 [facility] Comment on above: Performed By: #### I NFLUAB #### [facility] [address] [address] [address] Benito Dupree CO2 [Moles/Vol] 27.3 mmol/L Normal 21.0-32.0 [facility] Comment on above: Performed By: #### I NFLUAB #### [facility] [address] [place] [address] Dr. Benito Dupree Creatinine [Mass/Vol] 0.87 mg/dL Normal 0.55-1.02 [facility] Comment on above: Performed By: #### I NFLUAB #### [facility] [address] [place] [address] Dr. Benito Dupree EGFR-AF BAHRAINI >60 Normal >=60 [facility] Comment on above: Performed By: #### I NFLUAB #### [facility] [address] [place] [address] Dr. Benito Dupree EGFR-NON AF BAHRAINI >60 Normal >=60 [facility] Comment on above: Performed By: #### I NFLUAB #### [facility] [address] [place] [address] Dr. Benito Dupree Globulin (S) [Mass/Vol] 4.8 g/dL Normal [facility] Comment on above: Performed By: #### I NFLUAB #### [facility] [address] [place] [address] Dr. Benito Dupree Glucose [Mass/Vol] 218 mg/dL Critically high 74-106 [facility] Comment on above: Performed By: #### I NFLUAB #### [facility] [address] [place] [address] Dr. Benito Dupree Potassium [Moles/Vol] 4.1 mmol/L Normal 3.5-5.1 [facility] Comment on above: Performed By: #### I NFLUAB #### [facility] [address] [place] [address] Dr. Benito Dupree Protein [Mass/Vol] 8.4 g/dL Critically high 6.4-8.2 [facility] Comment on above: Performed By: #### I NFLUAB #### [facility] [address] [place] [address] Dr. Benito Dupree Sodium [Moles/Vol] 135 mmol/L Critically low 136-145 [facility] Comment on above: Performed By: #### I NFLUAB #### [facility] [address] [place] [address] Dr. Benito Dupree Urea nitrogen [Mass/Vol] 15.0 mg/dL Normal 7.0-18.0 [facility] Comment on above: Performed By: #### I NFLUAB #### [facility] [address] [place] [address] Dr. Benito Dupree Urea nitrogen/Creatinine [Mass ratio] 17.2 mg/mg Normal [facility] Comment on above: Performed By: #### I NFLUAB #### [facility] [address] [place] [address] Dr. Benito Dupree URINE MICROSCOPIC ONLYon BACTERIA TRACE Abnormal NONE SEEN [facility] Comment on above: Performed By: #### U MICRO, ERUR #### [facility] [address] [place] [address] Dr. Benito Dupree Bacteria identified Cx Nom (U) NOT INDICATED Normal [facility] Comment on above: Performed By: #### U MICRO, ERUR #### [facility] [address] [place] [address] Dr. Benito Dupree CAST NONE SEEN Normal NONE SEEN [facility] Comment on above: Performed By: #### U MICRO, ERUR #### [facility] [address] [place] [address] Dr. Benito Dupree Crystals LM Nom (Urine sed) NONE SEEN Normal NONE SEEN [facility] Comment on above: Performed By: #### U MICRO, ERUR #### [facility] [address] [address] [address] Benito Dupree Epithelial cells LM Ql (Urine sed) MODERATE Abnormal NONE SEEN /RARE [facility] Comment on above: Performed By: #### U MICRO, ERUR #### [facility] [address] [address] [address] Benito Dupree MUCOUS TRACE Abnormal NONE SEEN [facility] Comment on above: Performed By: #### U MICRO, ERUR #### [facility] [address] [address] [address] Benito Dupree RBC 2-5 Abnormal 0-2 [facility] Comment on above: Performed By: #### U MICRO, ERUR #### [facility] [address] [address] [address] Benito Dupree WBC 0-2 Abnormal NONE SEEN [facility] Comment on above: Performed By: #### U MICRO, ERUR #### [facility] [address] [address] [address] Benito Dupree XR hand RT min 3V*on 022 XR hand RT min 3V* [facility] [employer] Other XR hand RT min 3V* [facility] [employer] Other XR hand RT min 3V* [address] [place] [address] [employer] Other XR hand RT min 3V* [place] [address] [facility] [employer] Other XR hand RT min 3V* XRay Report [employer] Other XR hand RT min 3V* Signed [employer] Other XR hand RT min 3V* Patient: Noel Paul MR#: [id number] [employer] Other XR hand RT min 3V* : 1990 Acct:[id number] [employer] Other XR hand RT min 3V* Age/Sex: 31 / F ADM Date: 03/22/22 [employer] Other XR hand RT min 3V* Loc: XDUCLY Room: Type: [facility] [employer] Other XR hand RT min 3V* Attending Dr: Monique SANDOVAL [employer] Other XR hand RT min 3V* Ordering Provider: LORI Dias [employer] Other XR hand RT min 3V* Date of Service: 03/22/22 [employer] Other XR hand RT min 3V* XR/XR hand RT min 3V*: Finger pain, right [employer] Other XR hand RT min 3V* Copies to: LORI Dias [employer] Other XR hand RT min 3V* 3 viewsRIGHT hand plain film [employer] Other XR hand RT min 3V* COMPARISON:None N [employer] Other XR hand RT min 3V* HISTORY:Fell going upstairs. RIGHT ring finger injury. [employer] Other XR hand RT min 3V* No fracture, dislocation or focal soft tissue abnormality seen. [facility] Other XR hand RT min 3V* XR/XR hand RT min 3V* [facility] Other XR hand RT min 3V* IMPRESSION:No acute findings [facility] Other XR hand RT min 3V* Impression dictated by: Ta Galvan M.D.03/22/2022 4:42 PM [facility] Other XR hand RT min 3V* Dictation Location: [place] [address] [facility] Other XR hand RT min 3V* Transcribed By: PWS 03/22/221641 [facility] Other XR hand RT min 3V* Dictated By: Ta Galvan DO 03/22/221641 [facility] Other XR hand RT min 3V* Signed By: [facility] Other XR hand RT min 3V* 03/22/221641 [facility] Other Vital Signs Date Time Vital Sign Value Performing Clinician Facility 05-16-2024 15:25-0400 Diastolic blood pressure 70 mm[Hg] FIELD SALES SPECIALIST-C Moniquegisselle Whitleymer Work Phone: [facility] 05-16-2024 15:25-0400 Heart rate 80 /min FIELD SALES SPECIALIST-C Moniquegisselle hWitleymer Work Phone: [facility] 05-16-2024 15:25-0400 Respiratory rate 22 /min FIELD SALES SPECIALIST-C Monique Lien Work Phone: [facility] 05-16-2024 15:25-0400 SaO2% (BldA) [Mass fraction] 94 % FIELD SALES SPECIALIST-C Monique Lien Work Phone: [facility] 05-16-2024 15:25-0400 Systolic blood pressure 124 mm[Hg] FIELD SALES SPECIALIST-C Monique Lien Work Phone: [facility] 05-16-2024 12:57-0400 Body temperature 98.6 [degF] FIELD SALES SPECIALIST-C Monique Lien Work Phone: [facility] 05-16-2024 12:57-0400 Inhaled oxygen flow rate 6 L/min FIELD SALES SPECIALIST-C Monique Lien Work Phone: [facility] 05-16-2024 10:38-0400 Body mass index (BMI) [Ratio] 56.5 kg/m2 FIELD SALES SPECIALIST-C Monique Lien Work Phone: [facility] 05-16-2024 10:31-0400 Body height 157.48 cm FIELD SALES SPECIALIST-C Monique Emmanuel Work Phone: [facility] 05-16-2024 10:31-0400 Body weight 140.16 kg FIELD SALES SPECIALIST-C Monique Emmanuel Work Phone: [facility] 04-25-2024 13:27-0400 Diastolic blood pressure 85 mm[Hg] Pato [facility] 04-25-2024 13:27-0400 Heart rate 64 /min Pato [facility] 04-25-2024 13:27-0400 Mean blood pressure 103 mm[Hg] Pato [facility] 04-25-2024 13:27-0400 Systolic blood pressure 139 mm[Hg] Pato [facility] 04-25-2024 13:26-0400 Heart rate 65 /min Pato [facility] 04-25-2024 13:26-0400 Respiratory rate 16 /min Pato [facility] 04-25-2024 13:26-0400 SaO2% (BldA) [Mass fraction] 93 % Pato [facility] 04-25-2024 13:26-0400 Blood Pressure Location Pato [facility] 04-25-2024 13:26-0400 Body temperature 98.42 [degF] Pato [facility] 04-25-2024 13:26-0400 Diastolic blood pressure 83 mm[Hg] Pato [facility] 04-25-2024 13:26-0400 Mean blood pressure 100 mm[Hg] Pato [facility] 04-25-2024 13:26-0400 Systolic blood pressure 135 mm[Hg] Pato [facility] 02-27-2024 17:36-0400 Body height 154.94 cm FIELD SALES SPECIALIST-C Monique Emmanuel Work Phone: [facility] 02-27-2024 17:36-0400 Body mass index (BMI) [Ratio] 58.4 kg/m2 FIELD SALES SPECIALIST-C Monique Whitleymer Work Phone: [facility] 02-27-2024 17:36-0400 Body temperature 97.7 [degF] FIELD SALES SPECIALIST-C Monique Whitleymer Work Phone: [facility] 02-27-2024 17:36-0400 Body weight 140.38 kg FIELD SALES SPECIALIST-C Monique Whitleymer Work Phone: [facility] 02-27-2024 17:36-0400 Heart rate 87 /min FIELD SALES SPECIALIST-C Monique Whitleymer Work Phone: [facility] 02-27-2024 17:36-0400 Respiratory rate 18 /min FIELD SALES SPECIALIST-C Monique Whitleymer Work Phone: [facility] 02-27-2024 17:36-0400 SaO2% (BldA) [Mass fraction] 97 % FIELD SALES SPECIALIST-C Monique Whitleymer Work Phone: [facility] 03-22-2022 16:45-0400 Body height 154.94 cm Monique Dudley Other [facility] Other 03-22-2022 16:45-0400 Body mass index (BMI) [Ratio] 58.38 kg/m2 Monique Dudley Other [facility] Other 03-22-2022 16:45-0400 Body temperature 97.9 [degF] Monique Dudley Other [facility] Other 03-22-2022 16:45-0400 Body weight 140.16 kg Monique Dudley Other [facility] Other 03-22-2022 16:45-0400 Diastolic blood pressure 93 mm[Hg] Monique Dudley Other [facility] Other 03-22-2022 16:45-0400 Respiratory rate 20 /min Monique Dudley Other [facility] Other 03-22-2022 16:45-0400 SaO2% (BldA) [Mass fraction] 98 % Monique Dudley Other [facility] Other 03-22-2022 16:45-0400 Systolic blood pressure 154 mm[Hg] Monique Dudley Other [facility] Other Encounters Encounter Date Encounter Type Care Provider Facility Start: 08-02-2024 End: 08-02-2024 ambulatory PATO A VALENTINO Not Available Start: 07-24-2024 End: 07-24-2024 ambulatory NICHELLE CAMARGO Not Available Start: 07-19-2024 End: 07-19-2024 ambulatory PATO A BROWN Not Available Start: 06-28-2024 End: 06-28-2024 ambulatory PATO A BROWN Not Available Start: 06-07-2024 End: 06-07-2024 ambulatory PATO A BROWN Not Available Start: 05-24-2024 End: 05-24-2024 ambulatory PATO A BROWN Not Available Start: 05-16-2024 End: 05-16-2024 Admission to same day surgery center FIELD SALES SPECIALIST-C Monique Emmanuel Work Phone: [facility] [place] Start: 05-16-2024 End: 05-16-2024 ambulatory FIELD SALES SPECIALIST-C Monique Emmanuel Work Phone: [facility] Work Phone: Start: 05-03-2024 End: 05-03-2024 ambulatory PATO KOEHLER Not Available Start: 04-25-2024 End: 04-26-2024 ambulatory Pato [facility] [place] Start: 04-25-2024 End: 04-25-2024 Patient encounter procedure [facility] Start: 04-16-2024 End: 05-10-2024 Pre-admission assessment Pato [facility] Start: 04-12-2024 End: 04-12-2024 ambulatory PATO KOEHLER Not Available Start: 03-29-2024 End: 03-29-2024 ambulatory PATO KOEHLER Not Available Start: 02-27-2024 End: 02-27-2024 ambulatory FIELD SALES SPECIALIST-C Monique Emmanuel Work Phone: [facility] Work Phone: Start: 02-27-2024 End: 02-27-2024 Patient encounter procedure FIELD SALES SPECIALIST-C Monique Emmanuel Work Phone: [facility] Work Phone: Start: [...] medical examination without abnormal findings MONIQUE EMMANUEL [facility] Start: 08-18-2022 End: 08-19-2022 ambulatory MONIQUE EMMANUEL Facility:[facility] Start: 08-18-2022 End: 08-19-2022 Encounter for general adult medical examination without abnormal findings MONIQUE EMMANUEL Facility:[facility] Start: 06-01-2022 End: 06-01-[address] WESTLEY JHA Facility:[facility] Start: 03-22-2022 End: 03-22-2022 ambulatory Monique Dudley Other [facility] Other Start: 03-22-2022 Office outpatient vi sit 15 minutes Monique Dudley [facility] Procedures Date Procedure Procedure Detail Performing Clinician Start: 05-16-2024 Debridement FIELD SALES SPECIALIST-C Shruti Emmanuel Work Phone: Start: 05-16-2024 X-ray of left foot FIELD SALES SPECIALIST-C Monique Emmanuel Work Phone: Start: 02-27-2024 Plain X-ray of right shoulder FIELD SALES SPECIALIST-C Monique Emmanuel Work Phone: Cholecystectomy Pato pulliam Plan of Treatment Date Care Activity Detail Author Start: 05-16-2024 [facility] Start: 05-16-2024 [facility] Patient Education Know your Meds [facility] Work Phone: Payers Date Payer Category Payer Self-pay [id number] 1990 Unknown [id number] 2.16.84 0.1.834933.3.579.2.593 1988 Unknown [id number] 2.16.84 0.1.417522.3.579.2.593 1988 Unknown [id number] 2.16.84 0.1.915248.3.579.2.593 1988 Unknown [id number] 2.16.84 0.1.148856.3.579.2.593 1988 Unknown [id number] 2.16.84 0.1.194963.3.579.2.593 1988 Unknown [id number] 2.16.84 0.1.049802.3.579.2.593 1988 Unknown [id number] 2.16.84 0.1.768655.3.579.2.593 1988 Unknown [id number] 2.16.84 0.1.688236.3.579.2.593 1988 Unknown [id number] 2.16.8 40.1.630851.3.579.2.727 1988 Unknown [id number] 2.16.84 0.1.405531.3.579.2.9 1988 Unknown [id number] 2.16.84 0.1.201828.3.579.2.9 1988 Unknown [id number] 2.16.84 0.1.244793.3.579.2.9 1988 Unknown [id number] 2.16.84 0.1.008150.3.579.2.9 1988 Unknown [id number] 2.16.84 0.1.541877.3.579.2.9 1988 Unknown [id number] 2.16.84 0.1.406213.3.579.2.9 1988 Unknown [id number] 2.16.84 0.1.188526.3.579.2.1258 1988 Unknown [id number] 2.16.84 0.1.482738.3.579.2.1259 1988 Unknown [id number] 2.16.84 0.1.938150.3.579.2.1258 1988 Unknown [id number] 2.16.84 0.1.557183.3.579.2.1259 1959 [employer] Blue Shield [id number] 2.16.840.1.692491.19 Unknown [id number] 2.16.8 40.1.232414.3.579.2.531 Unknown [id number] 2.16.8 40.1.611013.3.579.2.531 Social History Date Type Detail Facility Unknown if ever smoked [facility] Start: 10-25-2018 End: 05-16-2024 Tobacco smoking status NHIS Never smoked tobacco (finding) [facility] Start: 1990 Sex Assigned At Female [facility] Tobacco smoking status No Smokin g Status Entered [facility] Goals Date Patient Goal Desired Activity /State Functional Status Date Assessment Result Facility 04-25-2024 Functional Status No [facility] Evaluation note 03-22-2022 Note Date & [...] no improvement in 5 to 7 days. [facility] Other Evaluation + Plan note Note Date & Type Note Facility Evaluation + Plan note Future Appointments Appointment Date:05/09/2024 07:30:00 AM Scheduled Provider: Location:[facility] Appointment Type:[facility] Evaluation note Note Date & Type Note Facility Evaluation note No assessment information availa ble [facility] Work Phone: History general Narrative - Reported Note Date & Type Note Facility History general Narrative - Reported Type Medical History Acquired hypothyroidism Medical History vitamin D deficiency Surgical History cholecystectomy Hospitalization History No Hospitalization histo ry information [facility] Other Hospital course Narrative Note Date & Type Note Facility Hospital course Narrative No data available for this section [facility] Discharge instructions Note Date & Type Note Facility Hospital Discharge instructions No data available for this section [facility] Discharge instructions Note Date & [...] operative site FOLLOW UP Phone numbers: Office [phone] [ ] [facility] Work Phone: Progress note Note Date & Type Note Facility Progress note No data available for this section [facility] Summary Purpose Family History No Family [...] DATE CREATED AUTHOR AUTHOR'S ORGANIZ ATION 04/26/2024 [facility] DATE CREATED AUTHOR AUTHOR'S ORGANIZ ATION 05/25/2024 [facility] DATE CREATED AUTHOR AUTHOR'S ORGANIZ ATION 07/01/2024 [facility] DATE CREATED AUTHOR AUTHOR'S ORGANIZ ATION 08/04/2024 [facility] Care Teams (unrecognized [...] BE BASED ON THE PRIMARY CLINICAL RECORDS. [facility]. provides no warranty or guarantee of the accuracy or completeness of information in this document.
[2024-08-16 15:01] LABS: Basophils Absolute Auto 0.1 10^3/uL (0.0-0.1); Basophils Percent Auto 0.4 % (0.2-2.0); Eosinophils Absolute Auto 0.3 10^3/uL (0.0-0.7); Eosinophils Percent Auto 2.4 % (0.9-7.0); Hematocrit 39.6 % (36.0-48.0); Hemoglobin 12.1 g/dL (12.0-16.0); Immature Granulocytes Abs Auto 0.06 10^3/uL (0.00-0.03); Immature Granulocytes Pct Auto 0.5 % (0.0-0.5); Lymphocytes Absolute Auto 2.2 10^3/uL (1.2-3.8); Lymphocytes Percent Auto 20.1 % (20.5-60.0); Mean Corpuscular HGB Conc 30.6 g/dL (29.9-35.2); Mean Corpuscular Hemoglobin 25.6 pg (26.7-34.0); Mean Corpuscular Volume 83.9 fL (81.0-99.0); Mean Platelet Volume 9.3 fL (9.5-13.5); Monocytes Absolute Auto 0.6 10^3/uL (0.3-0.8); Neutrophils Percent Auto 71.6 % (43.0-75.0); Platelet Count 323 10^3/uL (150-450); Red Blood Count 4.72 10^6/uL (4.20-5.40); Red Cell Distribution Width 14.6 % (11.0-15.0); White Blood Count 11.1 10^3/uL (4.0-11.0)
[2024-08-16 15:25] LABS: Anion Gap 10.6; BUN Creatinine Ratio 22.5; Calcium 9.3 mg/dL (8.5-10.1); Carbon Dioxide 30.1 mmol/L (21.0-32.0); Chloride 103 mmol/L (98-107); Estimated GFR (African America >60 (>=60); Estimated GFR (Non-African Ame >60 (>=60); Glucose 108 mg/dL (74-106); Potassium 3.7 mmol/L (3.5-5.1); Sodium 140 mmol/L (136-145)
== END 2024-08-16 14:47 | disposition home or self-care (01) ==
LOC: LAB 14:49
PROVIDERS: PCP Nurse Practitioner Family
DX: Z01.812 Encounter for preprocedural laboratory examination (principal)
CPT/HCPCS: 36415; 80048; 85025

== ENCOUNTER 2024-10-13 08:40 | Outpatient (OUT) | payer BC, SELFPAY ==
--- OUTSIDE RECORDS SUMMARY | 2024-10-13 08:44 | XMS_ITS | CCD ---
Author Organization [facility] Care Team Providers Care Videotape Recording Engineer Name Role Phone Monique Dudley Unavailable MONIQUE [...] REQUEST, DR LEE LISTED Primary Care Unavaila ble TIA ., DR COPPOLA Attending Unavailable BRIDGETTE ., SUNIL FAITH Consulting Unavailsandra Dudley NP-C Monique Attending Provider LORI Emmanuel Primary Care Provider MONIQUE EMMANUEL Primary Care Physician Pato Koehler Referring Unavailable Pato Koehler Attending Unavailable Pato Koehler Admitting Unavailable SHITAL Koehler Attending Provider [phone] Monique Emmanuel Primary Care Unavailable Pato Koehler Attending Unavailable Pato Koehler Admitting Unavailable Monique Dudley Attending Unavailable Monique Dudley Admitting Unavailable Monique Emmanuel Primary Care Unavailable BROWN, PATO A Attending Unavailable BROWN, PATO A Attending Unavailable BROWN, PATO A Attending Unavailable BROWN, PATO A Attending Unavailable BROWN, PATO A Attending Unavailable BROWN, PATO A Attending Unavailable Lien LONG, Monique Unavailable Lien LONG, Monique Unavailable Erich Garcia MD Primary Care Provider [phone] Jaime Camargo DO Unavailable Rodo, DPM Pato A Attending Unavailabl e Brown, DPM Pato A Admitting Unavailabl e Brown, DPM Pato A Attending Unavailabl e Brown, DPM Pato A Referring Unavailabl e Brown, DPM Pato A Admitting Unavailabl e BROWN, PATO A Attending Unavailable JAIME CAMARGO Attending Unavailable MONIQUE EMMANUEL Referring Unavailable BROWN, PATO A Attending Unavailable BROWN, PATO A Referring Unavailable BROWN, PATO A Attending Unavailable BROWN, PATO A Attending Unavailable BROWN, PATO A Referring Unavailable BROWN, PATO A Attending Unavailable BROWN, PATO A Attending Unavailable Allergies Allergy Classification Reported Allergen(s) Allergy Type Date of Onset Reaction(s) Facility (1 source) Egg protein Drug allergy [facility] [employer] Other (1 source) Sulf-10 Drug allergy [facility] [employer] Other (1 source) Sulfonamides (Antibiotic) Drug allergy (disorder) [address] [facility] (4 sources) Sulfonamides (Antibiotic); Translations: [Sulfa (Sulfonamide Antibiotics)] Allergy to substance 4 [facility] (4 sources) Egg Derived; Translations: [Egg Derived] Allergy to substance 4 [facility] (5 sources) Sulfonamides (Antibiotic); Translations: [sulfa drugs] Drug allergy [facility] (12 sources) Sulfonamides (Antibiotic) Drug Allergy 4 Rash, Hives [facility] Medications Current Medications Medication Drug Class(es) Dates Sig (Normalized) Sig (Original) acetaminophen 325 mg / HYDROcodone bitartrate 5 mg oral tablet (2 sources) Opioid Agonist Start: 08-30-2024 End: 09-04-2024 take 1 tablet by mouth every eight hours as needed for pain HYDROcodone-acetamin ophen ([place]) 5-325 MG tablet Indications: Pain Take 1 tablet by mouth every 8 (eight) hours if needed for moderate pain (PRN pain) for up to 5 days 15 tablet 08/30/2024 09/04/2024 Active acetaminophen 325 mg / oxyCODONE hydrochloride 5 mg oral tablet (1 source) Opioid Agonist Start: 09-07-2024 End: 09-12-2024 take 1 tablet by mouth every eight hours for pain oxyCODONE-acetaminop hen (Percocet) 5-325 MG tablet Indications: Pain Take 1 tablet by mouth every 8 (eight) hours if needed for severe pain for up to 5 days 15 tablet 09/07/2024 09/12/2024 Active cholecalciferol 0.125 mg oral tablet (15 sources) Vitamin D Start: 01-30-2024 cholecalciferol (Vitamin D-3) 125 MCG (5000 UT) tablet 1 (one) time each day at the same time 01/30/2024 Active escitalopram 20 mg oral tablet (16 sources) Serotonin Reuptake Inhibitor Start: 04-25-2024 take 20 mg by mouth once daily Escitalopram Oxalate Active 20 MG PO Daily May 16, 2024 12:00am Start: 03-12-2024 Lexapro 10 MG tablet 1 (one) time each day at the same time 03/12/2024 Active metFORMIN hydrochloride 500 mg oral tablet (18 sources) Biguanide Start: 02-27-2024 take 500 mg by mouth twice daily Metformin Active 500 MG PO Twice daily February 27, 2024 12:00am Start: 05-23-2023 metFORMIN (Glu cophage) 500 MG tablet 1 (one) time each day at the same time 05/23/2023 Active omeprazole 20 mg delayed release oral capsule (18 sources) Proton Pump Inhibitor Start: 02-27-2024 omeprazole 20 mg Cap-DR 20 mg = 1 cap(s), Oral, Daily, Refills(s) 0, Control of stomach acid Start Date: 04/25/24 Status: Ordered traZODone hydrochloride 50 mg oral tablet (16 sources) Serotonin Reuptake Inhibitor Start: 05-16-2024 take 100 mg by mouth once daily at bedtime Trazodone Active 100 MG PO Daily at bedtime May 16, 2024 12:00am Start: 04-25-2024 take 2 tablets by mo ut at bedtime traZODONE 50 mg Tab 100 mg = 2 tab(s), Oral, Bedtime, Refills(s) 0, Sleep Start Date: 04/25/24 Status: Ordered Start: 03-12-2024 traZODone (Karthikeyan yrel) 50 MG tablet 1 (one) time each day at the same time 03/12/2024 Active [place] Sling (3 sources) Start: 02-27-2024 [place] Slin g Active 0 .Route 1 February 27, 2024 12:00am As directed Vitamin D (3 sources) Start: 04-25-2024 Vitamin D Oral , Daily, Refills(s) 0, Prophylaxis Start Date: 04/25/24 Status: Ordered Problems Active Problems Problem Classification Problem Date Documented Date Episodic/Chronic Anxiety disorders (15 sources) Anxiety; Translations: [Anxiety disorder, unspecified] Onset: 07-21-2024 04-25-2024 Chronic Diabetes mellitus without complication (20 sources) Type 2 diabetes mellitus without complications; Translations: [Diabetes mellitus] Onset: 08-25-2022 Chronic Disorders of lipid metabolism (4 sources) Pure hyperglyceridemia; Translations: [PURE HYPERGLYCERIDEMIA] Onset: 11-15-2022 Chronic Esophageal disorders (15 sources) Gastroesophageal reflux disease; Translations: [Gastro-esophageal reflux disease without esophagitis] Onset: 07-21-2024 04-25-2024 Chronic Fracture of lower limb (2 sources) Stress fracture of right foot; Translations: [Stress fracture, right foot, initial encounter for fracture] 10-04-2024 Episodic Nutritional deficiencies (16 sources) Vitamin D deficiency, unspecified; Translations: [Vitamin D deficiency] Onset: 08-19-2022 04-25-2024 Chronic Other acquired deformities (2 sources) Contracture of joint of left ankle; Translations: [Contracture, left ankle] 08-30-2024 Chronic Other acquired deformities (8 sources) Contracture of joint of right ankle; Translations: [Contracture, right ankle] 08-30-2024 Chronic Other congenital anomalies (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), including pelvic girdle; 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), including pelvic girdle] Onset: 05-16-2024 Chronic Other congenital anomalies (9 sources) Accessory right tarsal navicular bone; 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), including pelvic girdle] 08-27-2024 Chronic Other connective tissue disease (2 sources) Calcaneal spur of left foot; Translations: [Calcaneal spur, left foot] 08-30-2024 Episodic Other connective tissue disease (2 sources) Plantar fasciitis; Translations: [Plantar fascial fibromatosis] 08-30-2024 Episodic Other non-traumatic joint disorders (1 source) Pain in right shoulder; Translations: [Pain in right shoulder] Onset: 02-27-2024 Episodic Other upper respiratory disease (1 source) Allergic rhinitis due to pollen; Translations: [Allergic rhinitis due to pollen] Chronic Other upper respiratory infections (4 sources) Chronic sinusitis, unspecified; Translations: [CHRONIC SINUSITIS UNSPECIFIED] Onset: 01-05-2023 Chronic Pancreatic disorders (not diabetes) (3 sources) Pancreatitis 02-08-2014 Episodic Unclassified (1 source) [...] initial encounter Onset: 03-22-2022 Resolved: 03-22-2022 Episodic Unclassified (2 sources) Stress fracture of right foot 10-04-2024 Results Test Name Value Interpretation Reference Range Facility Surgical Pathology Reporton 09-12-2024 Surgical Pathology Report [address] [place] [address]- Surgical Pathology Report Collected Date/Time: 09/05/2024 08:32 EDT Pathologist: Joon LONG PhD, Benito Piedra Received Date/Time: 09/06/2024 07:35 EDT Rodo ISAACS, Pato Koehler DPM, Pato Hudson Surgical Pathology Report - 09/12/2024 15:36 EDT - Modified Final Diagnosis RIGHT FOOT MALFORMATION ACCESSORY BONE, EXCISION: - CARTILAGE CAPPED BONE WITH FOCAL REMODELING CHANGES AND IRREGULAR CONTOUR. Comment: No inflammation, necrosis, granuloma or cytologic atypia is identified. (Electronic Signature) Benito Dupree MD PhD 09/12/2024 15:36 Clinical Information Type II diabetes Pre-Op Diagnosis: Malformation right foot Procedure: Removal right foot accessory bone Specimen(s) Received Right foot accessory bone Gross Description Received in formalin, labeled with patient name, number and right foot accesory bone is an ovoid elongated segment of light yellow-mccarthy osseous tissue measuring 3 x 1 x 0.7 cm. The specimen is serially sectioned and entirely submitted in one cassette after decalcification. (DC) DC:JUNE Microscopic Description Microscopic examination performed unless gross only specified. Corrected Report NO CHANGE IN DIAGNOSIS. Addition of clinical information only. Normal [facility] Comment on above: Performed By: #### [id number] #### [facility] Laboratory [address] [place] [address] Surgical Pathology Reporton 09-11-2024 Surgical Pathology Report [address] [place] [address]- Surgical Pathology Report Collected Date/Time: 09/05/2024 08:32 EDT Pathologist: Joon LONG PhD, Benito Piedra Received Date/Time: 09/06/2024 07:35 EDT Rodo ISAACS, Pato Koehler DPM, Pato Hudson Surgical Pathology Report - 09/11/2024 15:59 EDT - Auth (Verified) Final Diagnosis RIGHT FOOT MALFORMATION ACCESSORY BONE, EXCISION: - CARTILAGE CAPPED BONE WITH FOCAL REMODELING CHANGES AND IRREGULAR CONTOUR. Comment: No inflammation, necrosis, granuloma or cytologic atypia is identified. (Electronic Signature) Benito Dupree MD PhD 09/11/2024 15:59 Clinical Information x Pre-Op Diagnosis: _ Procedure: _ Post-Op Diagnosis: _ Specimen(s) Received Right foot accessory bone Gross Description Received in formalin, labeled with patient name, number and right foot accesory bone is an ovoid elongated segment of light yellow-mccarthy osseous tissue measuring 3 x 1 x 0.7 cm. The specimen is serially sectioned and entirely submitted in one cassette after decalcification. (DC) DC:JUNE Microscopic Description Microscopic examination performed unless gross only specified. Normal [facility] Comment on above: Performed By: #### [id number] #### [facility] Laboratory [address] [place] [address] Basic Metabolic Panelon 04-28 Creatinine Clr Calc Pharmacy 161.75 Normal [facility] Comment on above: Result Comment: PERF ORMED BY: [place] [address] PATHOLOGIST THEATRE MANAGER SIMEON BIGGS M.D. Performed By: #### B MP #### [place] [id number] [place] GFR/1.73 sq M.predicted MDRD (S/P/Bld) [Vol rate/Area] mL/min/{1.73_m2} Normal [facility] Comment on above: Performed By: #### B MP #### [place] [id number] [place] Calcium [Mass/volume] in Ser um or PlasmaOrdered By: Melvin Ruano on 05-16-2024 Calcium [Mass/Vol] 8.8 mg/dL Normal 8.6-10.3 [facility] Comment on above: Performed By: #### B MP #### [place] [id number] [place] Capillary blood glucose jaswinder urement by glucometer (mass/volume)Ordered By: Pato Koehler on 05-16-2024 Glucose [Mass/Vol] 106 mg/dL Normal [facility] Comment on above: Random Glucose Refer ence Range is dependent on time and content of last meal. Glucose of more than 200 mg/dL in a nonstressed, ambulatory subject supports the diagnosis of Diabetes Mellitus. Result Comment: Constantia om Glucose Reference Range is dependent on time and content of last meal. Glucose of more than 200 mg/dL in a nonstressed, ambulatory subject supports the diagnosis of Diabetes Mellitus. Performed By: #### G LULS #### Point of Care testing , Carbon dioxide, total [Moles /volume] in Serum or PlasmaOrdered By: Melvin Ruano on 05-16-2024 CO2 [Moles/Vol] 27.3 mmol/L Normal 21.0-31.0 [facility] Comment on above: Performed By: #### B MP #### [facility] [address] [place] [address] [place] Chloride [Moles/volume] in S nikkie or PlasmaOrdered By: Melvin Ruano on 05-16-2024 Chloride [Moles/Vol] 105 mmol/L Normal 98-107 [facility] Comment on above: Performed By: #### B MP #### [facility] [address] Creatinine [Mass/volume] in Serum or PlasmaOrdered By: Melvin Ruano on 05-16-2024 Creatinine [Mass/Vol] 0.66 mg/dL Normal 0.60-1.20 [facility] Comment on above: Performed By: #### B MP #### [facility] [address] Glucose Poct Glucometerson 0 05-16-2024 Commemt1 Glu2: Cleaned Meter Normal [facility] Comment on above: Result Comment: PERF ORMED BY: [place] [address] PATHOLOGIST THEATRE MANAGER SIMEON BIGGS M.D. Performed By: #### G LULS #### Point of Care testing , Glucose [Mass/volume] in Ser um or PlasmaOrdered By: Melvin Ruano on 05-16-2024 Glucose [Mass/Vol] 107 mg/dL High 70-100 [facility] Comment on above: ADA recommended refe rence rangeRandom Glucose Reference Range is dependent on time and content of last meal. Glucose of more than 200 mg/dL in a nonstressed, ambulatory subject supports the diagnosis of Diabetes Mellitus. Result Comment: Constantia om Glucose Reference Range is dependent on time and content of last meal. Glucose of more than 200 mg/dL in a nonstressed, ambulatory subject supports the diagnosis of Diabetes Mellitus. ADA recommended reference range Performed By: #### B MP #### [facility] [address] [place] [address] HCG ( test) IA.rapi d Ql (U)Ordered By: Melvin Ruano on 05-16-2024 HCG ( test) Ql (U) Negative [facility] HCG,Urineon 05-16-2024 Beta HCG ( test) Ql (U) Negative Normal [facility] Comment on above: Result Comment: PERF ORMED BY: [place] [address] PATHOLOGIST THEATRE MANAGER SIMEON BIGGS M.D. Performed By: #### U HCG #### [facility] [address] [place] [address] Jason 05-16-2024 L Specimen: [id number] Received: 05/16/24 Status: KESHA Romo Num: [id number] Spec Type: Surgical Subm Dr: Pato Koehler DPM Tissues: A Bone Fragments - Other than Path Fracture (ACCESSORY BONE LT FOOT) Procedures: HE, Gross/Micro L3, Decalcification Age/ Patient Sex Location Account Attending Physician Kyung Paul 33/F [place] [id number] Pato Koehler DPM SPEC NUM: [id number] RECD: 05/16/24 STATUS: KESHA ROMO NUM: [id number] BRUNO: 05/16/24- SUBM DR: Pato Koehler DPM ENTERED: 05/16/241258 OT DR: SPEC TYPE: Surgical DEPT: S ORDERED: NICOLE, Gross/Micro L3, Decalcification ORDERED: HE, Gross/Micro L3, [...] of necrosis or cysts are present. [employer] Mechanic sections are submitted following decalcification in A1. CPT Codes 11275, 70169 Specimen: [id number] Received: 05/16/24-1256 Status: KESHA Romo Num: [id number] Spec Type: Surgical Subm Dr: Pato Koehler DPM Tissues: A Bone Fragments - Other than Path Fracture (ACCESSORY BONE LT FOOT) Procedures: HE, Gross/Micro L3, Decalcification Patient: Kyung Paul [id number] (Continued) Signed (signature on file) Marco-Lukasz Dupree MD 05/19/24 1640 Normal [facility] No Panel InformationOrdered By: Pato Koehler on 05-16-2024 Bedside Glucose Comment Glu2: cleaned meter [facility] No Panel InformationOrdered By: Melvin Ruano on 05-16-2024 Estimated GFR (CKD-EPI) > 60.0 mL/Min [facility] Creatinine Clearance (Chem 161.75 [facility] Potassium [Moles/volume] in Serum or PlasmaOrdered By: Melvin Ruano on 05-16-2024 Potassium [Moles/Vol] 3.8 mmol/L Normal 3.5-5.1 [facility] Comment on above: Performed By: #### B MP #### [facility] [address] [place] [address] Serum or plasma anion gap de terminationOrdered By: Melvin Ruano on 05-16-2024 Anion gap [Moles/Vol] 9.5 mmol/L Normal 6.0-15.0 [facility] Comment on above: Performed By: #### B MP #### [facility] [address] [place] [address] Sodium [Moles/volume] in Ser um or PlasmaOrdered By: Melvin Ruano on 05-16-2024 Sodium [Moles/Vol] 138 mmol/L Normal 136-145 [facility] Comment on above: Performed By: #### B MP #### [facility] [address] Urea nitrogen [Mass/volume] in Serum or PlasmaOrdered By: Melvin Ruano on 05-16-2024 Urea nitrogen [Mass/Vol] 17 mg/dL Normal 7-25 [facility] Comment on above: Performed By: #### B MP #### [facility] [address] XR foot LT 2Von 05-16-2024 XR foot LT 2V [facility] [place] [address] [place] [address] XRay Report Signed Patient: Kyung Paul MR#: [id number] : 1990 Acct:[id number] Age/Sex: 33 / F ADM Date: 05/16/24 Loc: [place] Room: Type: [facility] Attending Dr: Pato [...] Leisa Adames M.D.05/16/2024 3:20 PM Dictation Location: [place] [address] Transcribed By: [facility] 05/16/24 1520 Dictated By: Leisa Adames MD 05/16/24 1515 Signed By: 05/16/24 1520 Normal [facility] CBC w/ Auto Diffon 4 Basophils/100 WBC (Bld) 0.5 % Normal 0.0-2.[address] [facility] Comment on above: Performed By: #### 2 [id number] #### [facility] [address] [place] [address] Basophils/Leukocytes Auto (Bld) [Pure # fraction] 0.1 E9/L Normal 0.0-0.2 [facility] Comment on above: Performed By: #### 2 [id number] #### [facility] [address] [place] [address] Eosinophils (Bld) [#/Vol] 0.3 E9/L Normal 0.0-0.5 [facility] Comment on above: Performed By: #### 2 [id number] #### [facility] [address] [place] [address] Eosinophils/100 WBC (Bld) 2.9 % Normal 0.0-8.0 [facility] Comment on above: Performed By: #### 2 [id number] #### [facility] [address] [place] [address] Erythrocyte distribution width (RBC) [Ratio] 15.6 % High 10.9-14.2 [facility] Comment on above: Performed By: #### 2 [id number] #### [facility] [address] [place] [address] Hematocrit (Bld) [Volume fraction] 39.9 % Normal 34.0-46.0 [facility] Comment on above: Performed By: #### 2 [id number] #### [facility] [address] [place] [address] Hemoglobin (Bld) [Mass/Vol] 12.8 g/dL Normal 12.0-16.0 [facility] Comment on above: Performed By: #### 2 [id number] #### [facility] [address] [place] [address] Lymphocytes (Bld) [#/Vol] 2.3 E9/L Normal 1.0-4.0 [facility] Comment on above: Performed By: #### 2 [id number] #### [facility] [address] [place] [address] Lymphocytes/100 WBC (Bld) 20.9 % Normal 14.0-50.0 [facility] Comment on above: Performed By: #### 2 [id number] #### [facility] [address] [place] [address] MCH (RBC) [Entitic mass] 25.4 pg Low 27.0-34.0 [facility] Comment on above: Performed By: #### 2 [id number] #### [facility] [address] [place] [address] MCHC (RBC) [Mass/Vol] 32.2 g/dL Normal 31.4-36.0 [facility] Comment on above: Performed By: #### 2 [id number] #### [facility] [address] [place] [address] MCV (RBC) [Entitic vol] 79.0 fL Low 80.0-100.0 [facility] Comment on above: Performed By: #### 2 [id number] #### [facility] [address] [place] [address] Monocytes (Bld) [#/Vol] 0.7 E9/L Normal 0.2-1.0 [facility] Comment on above: Performed By: #### 2 [id number] #### [facility] [address] [place] [address] Neutrophils (Bld) [#/Vol] 7.7 E9/L High 2.0-7.5 [facility] Comment on above: Performed By: #### 2 [id number] #### [facility] [address] [place] [address] Neutrophils/100 WBC (Bld) 69.3 % Normal 36.0-75.0 [facility] Comment on above: Performed By: #### 2 130239 #### [facility] [address] [place] [address] Platelet mean volume (Bld) [Entitic vol] 8.3 fL Normal 6.4-10.8 [facility] Comment on above: Performed By: #### 2 [id number] #### [facility] [address] [place] [address] Platelets (Bld) [#/Vol] 346.0 E9/L Normal 150.0-500.0 [facility] Comment on above: Performed By: #### 2 [id number] #### [facility] [address] [place] [address] RBC (Bld) [#/Vol] 5.1 E12/L Normal 4.3-5.9 [facility] Comment on above: Performed By: #### 2 [id number] #### [facility] [address] [place] [address] WBC corrected for nucl RBC Auto (Bld) [#/Vol] 11.1 E9/L High 4.0-11.0 [facility] Comment on above: Performed By: #### 2 [id number] #### [facility] [address] [place] [address] Consent for Treatmenton 03-29 Consent for Treatment [id number] #1.00TIFF Normal [facility] HEMATOLOGYOrdered By: SYSTEM SYSTEM on 04-25-2024 Basophils/100 [...] Remisol Heme Physician Orderon 04-18-2024 Physician Order [id number] #1.00TIFF Normal [facility] XR shoulder RT min 2V*on XR shoulder RT min 2V* [address] [address] XRay Report Signed Patient: Kyung Paul MR#: [id number] : 1990 Acct:[id number] Age/Sex: 33 / F ADM Date: 02/27/24 Loc: [facility] Room: Type: [facility] Attending Dr: Monique SANDOVAL Copies to: [...] Leisa Adames M.D.02/27/2024 6:14 PM Dictation Location: [place] [address] Transcribed By: [facility] 02/27/241813 Dictated By: Leisa Adames MD 02/27/241812 Signed By: 02/27/241813 Normal [facility] GLYCOHEMOGLOBIN A1Con 2022 ADA RECOMMENDATION SEE BELOW Normal [facility] Comment on above: Result Comment: ADA RECOMMENDED LIMIT 4.0 - 6.0 ADA THERAPEUTIC TARGET < 7.0 ACTION SUGGESTED > 7.0 Performed By: #### A 1C #### [facility] [address] [place] [address] [address] Benito Dupree Glucose [Mass/Vol] 105 mg/dL Normal [facility] Comment on above: Performed By: #### A 1C #### [facility] [address] [place] [address] [address] Benito Dupree HbA1c (Bld) [Mass fraction] 5.3 % Normal 4.5-6.2 [facility] Comment on above: Performed By: #### A 1C #### [facility] [address] [place] [address] [address] Benito Dupree Covid-19 PCR (CVDTB)on SARS-CoV-2 (COVID-19) RNA MUKUND+probe Ql (Unsp spec) Not detected Normal NOT DETECTED [facility] Comment on above: Result Comment: This test is not yet approved or cleared by the [place] FDA. When there are no FDA-approved or cleared tests available, and other criteria are met, FDA can make tests available under an emergency access mechanism called an Emergency Use Authorization (EUA). The EUA for this test is supported by the [employer] of Health and Human Service's (HHS's) declaration [...] SARS-CoV-2. Performed By: #### C VDTBH #### [facility] [address] [place] [address] Dr. Benito Dupree INFLUENZA A AND B AGon 01[facility] SEE BELOW Normal [facility] Comment on above: Result Comment: Nega tive for Flu A protein angiten. Infection due to Flu A cannot be ruled out. Flu A angiten in the sample may be below the detection limit of the test. Performed By: #### I NFLUAB #### [facility] [address] [place] [address] Dr. Benito Dupree INFLUBNEG SEE BELOW Normal [facility] Comment on above: Result Comment: Nega tive for Flu B protein antigen. Infection due to Flu B cannot be ruled out. Flu B antigen in the sample may be below the detection limit of the test. Performed By: #### I NFLUAB #### [facility] [address] [place] [address] Dr. Benito Dupree INFLUENZA A AG Negative Normal NEGATIVE SEE COMMENT [facility] Comment on above: Performed By: #### I NFLUAB #### [facility] [address] [address] [address] Benito Dupree INFLUENZA B AG Negative Normal NEGATIVE SEE COMMENT [facility] Comment on above: Performed By: #### I NFLUAB #### [facility] [address] [place] [address] Dr. Benito Dupree GLYCOHEMOGLOBIN A1Con 2021 ADA RECOMMENDATION SEE BELOW Normal [facility] Comment on above: Result Comment: ADA RECOMMENDED LIMIT 4.0 - 6.0 ADA THERAPEUTIC TARGET < 7.0 ACTION SUGGESTED > 7.0 Performed By: #### A 1C #### [facility] [address] [address] [address] Benito Dupree Glucose [Mass/Vol] 143 mg/dL Normal [facility] Comment on above: Performed By: #### A 1C #### [facility] [address] [place] [address] Dr. Benito Dupree HbA1c (Bld) [Mass fraction] 6.6 % Critically high 4.5-6.2 [facility] Comment on above: Performed By: #### A 1C #### [facility] [address] [place] [address] Dr. Benito Dupree LIPID PROFILEon 11-15-2022 CHOL-HDL RATIO NORM SEE BELOW Normal [facility] Comment on above: Result Comment: 3.3 - 4.4 LOW RISK 4.4 - 7.1 AVERAGE RISK 7.1 - 11.0 MODERATE RISK >11.0 HIGH RISK Performed By: #### I NFLUAB #### [facility] [address] [place] [address] Dr. Benito Dupree Cholesterol [Mass/Vol] 154 mg/dL Normal <=200 [facility] Comment on above: Performed By: #### I NFLUAB #### [facility] [address] [place] [address] Dr. Benito Dupree Cholesterol in HDL [Mass/Vol] 29 mg/dL Critically low 40-60 [facility] Comment on above: Performed By: #### I NFLUAB #### [facility] [address] [place] [address] Dr. Benito Dupree Cholesterol in LDL [Mass/Vol] 98.2 mg/dL Normal [facility] Comment on above: Performed By: #### I NFLUAB #### [facility] [address] [address] [address] Benito Dupree Cholesterol.total/Lisandra sterol in HDL [Mass ratio] 5.3 {ratio} Normal [facility] Comment on above: Performed By: #### I NFLUAB #### [facility] [address] [address] [address] Benito Dupree HDL NORMAL > or = 60 mg/dl - LOW CARDIOVASCULAR RISK <40 mg/dl - HIGH CARDIOVASCULAR RISK Normal [facility] Comment on above: Performed By: #### I NFLUAB #### [facility] [address] [address] [address] Benito Dupree LDL CALC NORMAL SEE BELOW Normal [facility] Comment on above: Result Comment: <100 mg/dl OPTIMAL 100 - 129 mg/dl NEAR OR ABOVE OPTIMAL 130 - 159 mg/dl BORDERLINE HIGH 160 - 189 mg/dl HIGH >190 mg/dl VERY HIGH Performed By: #### I NFLUAB #### [facility] [address] [address] [address] Benito Dupree Triglyceride [Mass/Vol] 134 mg/dL Normal <=[address] [facility] Comment on above: Performed By: #### I NFLUAB #### [facility] [address] [address] [address] Benito Dupree VLDL CALC 26.8 mg/dL Normal [facility] Comment on above: Performed By: #### I NFLUAB #### [facility] [address] [address] [address] Benito Dupree INSULINon 08-19-2022 Insulin 24.3 uIU/mL Normal 2.6-24.[address] [facility] Comment on above: Performed By: #### I NFLUAB #### [facility] [address] [address] [address] Benito Dupree T4, T3U, FTI LABCORPon 08-19 Free Thyroxine Index 2.6 Normal 1.2-4.9 [facility] Comment on above: Performed By: #### T HYLC #### [facility] [address] [place] [address] Dr. Benito Dupree T3 Uptake 29 % Normal 24-39 [facility] Comment on above: Performed By: #### T HYLC #### [facility] [address] [place] [address] Dr. Benito Dupree T4 [Mass/Vol] 8.8 ug/dL Normal 4.5-12.0 [facility] Comment on above: Performed By: #### T HYLC #### [facility] [address] [place] [address] Dr. Benito Dupree CBC AUTO DIFFon 08-18-2022 BASO # 0.1 103/ul Normal 0.0-0.1 [facility] Comment on above: Performed By: #### I NFLUAB #### [facility] [address] [place] [address] Dr. Benito Dupree Basophils/100 WBC (Bld) 0.8 % Normal 0.2-2.0 [facility] Comment on above: Performed By: #### I NFLUAB #### [facility] [address] [place] [address] Dr. Benito Dupree EO # 0.3 103/ul Normal 0.0-0.7 [facility] Comment on above: Performed By: #### I NFLUAB #### [facility] [address] [place] [address] Dr. Benito Dupree Eosinophils/100 WBC (Bld) 2.8 % Normal 0.9-7.0 [facility] Comment on above: Performed By: #### I NFLUAB #### [facility] [address] [place] [address] Dr. Benito Dupree Erythrocyte distribution width (RBC) [Ratio] 15.4 % Critically high 11.0-15.0 [facility] Comment on above: Performed By: #### I NFLUAB #### [facility] [address] [place] [address] Dr. Benito Dupree Hematocrit (Bld) [Volume fraction] 43.7 % Normal 36.0-48.0 [facility] Comment on above: Performed By: #### I NFLUAB #### [facility] [address] [place] [address] Dr. Benito Dupree Hemoglobin (Bld) [Mass/Vol] 14.2 g/dL Normal 12.0-16.0 [facility] Comment on above: Performed By: #### I NFLUAB #### [facility] [address] [place] [address] Dr. Benito Dupree IG # 0.08 10e3/ul Critically high 0.00-0.03 [facility] Comment on above: Performed By: #### I NFLUAB #### [facility] [address] [place] [address] Dr. Benito Dupree IG % 0.9 % Critically high 0.0-0.5 [facility] Comment on above: Performed By: #### I NFLUAB #### [facility] [address] [place] [address] Dr. Benito Dupree LYMPH # 2.3 103/ul Normal 1.2-3.8 [facility] Comment on above: Performed By: #### I NFLUAB #### [facility] [address] [place] [address] Dr. Benito Dupree Lymphocytes/100 WBC (Bld) 24.3 % Normal 20.5-60.0 [facility] Comment on above: Performed By: #### I NFLUAB #### [facility] [address] [place] [address] Dr. Benito Dupree MANUAL DIFF REQ NO Normal [facility] Comment on above: Performed By: #### I NFLUAB #### [facility] [address] [place] [address] Dr. Benito Dupree MCH (RBC) [Entitic mass] 26.1 pg Critically low 26.7-34.0 [facility] Comment on above: Performed By: #### I NFLUAB #### [facility] [address] [place] [address] Dr. Benito Dupree MCHC (RBC) [Mass/Vol] 32.5 g/dL Normal 29.9-35.2 [facility] Comment on above: Performed By: #### I NFLUAB #### [facility] [address] [place] [address] Dr. Benito Dupree MCV (RBC) [Entitic vol] 80.2 fL Critically low 81.0-99. 0 [facility] Comment on above: Performed By: #### I NFLUAB #### [facility] [address] [place] [address] Dr. Benito Dupree MONO # 0.5 103/ul Normal 0.3-0.8 [facility] Comment on above: Performed By: #### I NFLUAB #### [facility] [address] [place] [address] Dr. Benito Dupree Monocytes/100 WBC (Bld) 5.2 % Normal 1.7-12.0 [facility] Comment on above: Performed By: #### I NFLUAB #### [facility] [address] [place] [address] Dr. Benito Dupree NEUT # 6.1 103/ul Normal 1.4-6.5 [facility] Comment on above: Performed By: #### I NFLUAB #### [facility] [address] [place] [address] Dr. Benito Dupree Neutrophils/100 WBC (Bld) 66.0 % Normal 43.0-75.0 [facility] Comment on above: Performed By: #### I NFLUAB #### [facility] [address] [place] [address] Dr. Benito Dupree Platelet mean volume (Bld) [Entitic vol] 9.9 fL Normal 9.5-13.5 [facility] Comment on above: Performed By: #### I NFLUAB #### [facility] [address] [place] [address] Dr. Benito Dupree PLT 291 103/ul Normal 150-[address] [facility] Comment on above: Performed By: #### I NFLUAB #### [facility] [address] [place], [place] [id number] Dr. Benito Dupree RBC 5.45 106/ul Critically high 4.20-5.40 [facility] Comment on above: Performed By: #### I NFLUAB #### [facility] [address] [address] [address] Benito Dupree WBC 9.3 103/ul Normal 4.0-11.[address] [facility] Comment on above: Performed By: #### I NFLUAB #### [facility] [address] [address] [address] Benito Dupree DIRECT LDLon 08-18-2022 Cholesterol in LDL [Mass/Vol] 50 mg/dL Normal [facility] Comment on above: Performed By: #### T HYLC #### [facility] [address] [place] [address] Dr. Benito Dupree DLDL NORMAL SEE BELOW Normal [facility] Comment on above: Result Comment: <100 mg/dl OPTIMAL 100 - 129 mg/dl NEAR OR ABOVE OPTIMAL 130 - 159 mg/dl BORDERLINE HIGH 160 - 189 mg/dl HIGH >190 mg/dl VERY HIGH Performed By: #### T HYLC #### [facility] [address] [place] [address] Dr. Benito Dupree GLYCOHEMOGLOBIN A1Con 2021 ADA RECOMMENDATION SEE BELOW Normal [facility] Comment on above: Result Comment: ADA RECOMMENDED LIMIT 4.0 - 6.0 ADA THERAPEUTIC TARGET < 7.0 ACTION SUGGESTED > 7.0 Performed By: #### A 1C #### [facility] [address] [place] [address] Dr. Benito Dupree Glucose [Mass/Vol] 332 mg/dL Normal [facility] Comment on above: Performed By: #### A 1C #### [facility] [address] [place] [address] Dr. Benito Dupree HbA1c (Bld) [Mass fraction] 13.2 % Critically high 4.5-6.[address] [facility] Comment on above: Performed By: #### A 1C #### [facility] [address] [place] [address] Dr. Benito Dupree IRONon 08-18-2022 Iron [Mass/Vol] 53.0 ug/dL Normal 50.0-170.0 [facility] Comment on above: Performed By: #### I NFLUAB #### [facility] [address] [address] [address] Benito Dupree LIPID PROFILEon 08-18-2022 CHOL-HDL RATIO NORM SEE BELOW Normal [facility] Comment on above: Result Comment: 3.3 - 4.4 LOW RISK 4.4 - 7.1 AVERAGE RISK 7.1 - 11.0 MODERATE RISK >11.0 HIGH RISK Performed By: #### T HYLC #### [facility] [address] [address] [address] Benito Dupree Cholesterol [Mass/Vol] 260 mg/dL Critically high <=200 [facility] Comment on above: Performed By: #### T HYLC #### [facility] [address] [address] [address] Benito Dupree Cholesterol in HDL [Mass/Vol] 23 mg/dL Critically low 40-60 [facility] Comment on above: Performed By: #### T HYLC #### [facility] [address] [address] [address] Benito Dupree Cholesterol.total/Lisandra sterol in HDL [Mass ratio] 11.3 {ratio} Normal [facility] Comment on above: Performed By: #### T HYLC #### [facility] [address] [address] [address] Benito Dupree HDL NORMAL > or = 60 mg/dl - LOW CARDIOVASCULAR RISK <40 mg/dl - HIGH CARDIOVASCULAR RISK Normal [facility] Comment on above: Performed By: #### T HYLC #### [facility] [address] [address] [address] Benito Dupree Triglyceride [Mass/Vol] 1711 mg/dL Critically high <=150 [facility] Comment on above: Performed By: #### T HYLC #### [facility] [address] [address] [address] Benito Dupree VLDL CALC 342.2 mg/dL Normal [facility] Comment on above: Performed By: #### T HYLC #### [facility] [address] [place] [address] Dr. Benito Dupree PROF 14(COMP METB)on 022 Albumin [Mass/Vol] 3.2 g/dL Critically low 3.4-5.0 [facility] Comment on above: Performed By: #### T HYLC #### [facility] [address] [address] [address] Benito Dupree Albumin/Globulin [Mass ratio] 0.7 {ratio} Normal [facility] Comment on above: Performed By: #### T HYLC #### [facility] [address] [place] [address] Dr. Benito Dupree ALP [Catalytic activity/Vol] 92 U/L Normal 46-116 [facility] Comment on above: Performed By: #### T HYLC #### [facility] [address] [place] [address] Dr. Benito Dupree ALT [Catalytic activity/Vol] 41 U/L Normal 14-59 [facility] Comment on above: Performed By: #### T HYLC #### [facility] [address] [place] [address] Dr. Benito Dupree Anion gap [Moles/Vol] 14.1 mmol/L Normal [facility] Comment on above: Performed By: #### T HYLC #### [facility] [address] [place] [address] Dr. Benito Dupree AST [Catalytic activity/Vol] 16 U/L Normal 15-37 [facility] Comment on above: Performed By: #### T HYLC #### [facility] [address] [place] [address] Dr. Benito Dupree Bilirubin [Mass/Vol] 0.9 mg/dL Normal 0.2-1.0 [facility] Comment on above: Performed By: #### T HYLC #### [facility] [address] [place] [address] Dr. Benito Dupree Calcium [Mass/Vol] 9.1 mg/dL Normal 8.5-10.1 [facility] Comment on above: Performed By: #### T HYLC #### [facility] [address] [address] [address] Benito Dupree Chloride [Moles/Vol] 97 mmol/L Critically low 98-107 [facility] Comment on above: Performed By: #### T HYLC #### [facility] [address] [address] [address] Benito Dupree CO2 [Moles/Vol] 24.9 mmol/L Normal 21.0-32.0 [facility] Comment on above: Performed By: #### T HYLC #### [facility] [address] [address] [address] Benito Dupree Creatinine [Mass/Vol] 0.67 mg/dL Normal 0.55-1.02 [facility] Comment on above: Performed By: #### T HYLC #### [facility] [address] [address] [address] Bentio Dupree EGFR-AF ARGENTINE >60 Normal >=60 [facility] Comment on above: Performed By: #### T HYLC #### [facility] [address] [address] [address] Benito Dupree EGFR-NON AF ARGENTINE >60 Normal >=60 [facility] Comment on above: Performed By: #### T HYLC #### [facility] [address] [address] [address] Benito Dupree Globulin (S) [Mass/Vol] 4.6 g/dL Normal [facility] Comment on above: Performed By: #### T HYLC #### [facility] [address] [address] [address] Benito Dupree Glucose [Mass/Vol] 402 mg/dL Critically high 74-106 [facility] Comment on above: Performed By: #### T HYLC #### [facility] [address] [address] [address] Benito Dupree Potassium [Moles/Vol] 4.0 mmol/L Normal 3.5-5.1 [facility] Comment on above: Performed By: #### T HYLC #### [facility] [address] [place] [address] Dr. Benito Dupree Protein [Mass/Vol] 7.8 g/dL Normal 6.4-8.2 [facility] Comment on above: Performed By: #### T HYLC #### [facility] [address] [place] [address] Dr. Benito Dupree Sodium [Moles/Vol] 132 mmol/L Critically low 136-145 [facility] Comment on above: Performed By: #### T HYLC #### [facility] [address] [place] [address] Dr. Benito Dupree Urea nitrogen [Mass/Vol] 10.0 mg/dL Normal 7.0-18.0 [facility] Comment on above: Performed By: #### T HYLC #### [facility] [address] [place] [address] Dr. Benito Dupree Urea nitrogen/Creatinine [Mass ratio] 14.9 mg/mg Normal [facility] Comment on above: Performed By: #### T HYLC #### [facility] [address] [place] [address] Dr. Benito Dupree TSHon 08-18-2022 TSH 3.676 uIU/mL Normal 0.358-3.740 [facility] Comment on above: Performed By: #### T HYLC #### [facility] [address] [place] [address] Dr. Benito Dupree VITAMIN D 25 OHon 08-18-2022 VIT D 25-OH 13.9 ng/mL Normal [facility] Comment on above: Performed By: #### I NFLUAB #### [facility] [address] [place] [address] Dr. Benito Dupree VIT D RANGES SEE BELOW Normal [facility] Comment on above: Result Comment: <20 ng/mL Vit D deficient 20 - <30 ng/mL Vit D insufficient 30 - 100 ng/mL Vit D sufficient >100 ng/mL Potential Toxicity Performed By: #### I NFLUAB #### [facility] [address] [place] [address] Dr. Benito Dupree AMYLASEon 06-01-2022 Amylase [Catalytic activity/Vol] 29 U/L Normal 25-115 [facility] Comment on above: Performed By: #### I NFLUAB #### [facility] [address] [place] [address] Dr. Benito Dupree CBC AUTO DIFFon 06-01-2022 BASO # 0.1 103/ul Normal 0.0-0.1 [facility] Comment on above: Performed By: #### I NFLUAB #### [facility] [address] [place] [address] Dr. Benito Dupree Basophils/100 WBC (Bld) 0.5 % Normal 0.2-2.0 [facility] Comment on above: Performed By: #### I NFLUAB #### [facility] [address] [place] [address] Dr. Benito Dupree EO # 0.3 103/ul Normal 0.0-0.7 [facility] Comment on above: Performed By: #### I NFLUAB #### [facility] [address] [place] [address] Dr. Benito Dupree Eosinophils/100 WBC (Bld) 2.0 % Normal 0.9-7.0 [facility] Comment on above: Performed By: #### I NFLUAB #### [facility] [address] [place] [address] Dr. Benito Dupree Erythrocyte distribution width (RBC) [Ratio] 15.3 % Critically high 11.0-15.0 [facility] Comment on above: Performed By: #### I NFLUAB #### [facility] [address] [place] [address] Dr. Benito Dupree Hematocrit (Bld) [Volume fraction] 41.5 % Normal 36.0-48.[address] [facility] Comment on above: Performed By: #### I NFLUAB #### [facility] [address] [place] [address] Dr. Benito Dupree Hemoglobin (Bld) [Mass/Vol] 12.7 g/dL Normal 12.0-16.0 [facility] Comment on above: Performed By: #### I NFLUAB #### [facility] [address] [address] [address] Benito Dupree IG # 0.06 10e3/ul Critically high 0.00-0.03 [facility] Comment on above: Performed By: #### I NFLUAB #### [facility] [address] [address] [address] Benito Dupree IG % 0.4 % Normal 0.0-0.5 [facility] Comment on above: Performed By: #### I NFLUAB #### [facility] [address] [address] [address] Benito Dupree LYMPH # 1.9 103/ul Normal 1.2-3.8 [facility] Comment on above: Performed By: #### I NFLUAB #### [facility] [address] [place] [address] Dr. Benito Dupree Lymphocytes/100 WBC (Bld) 13.9 % Critically low 20.5-60.0 [facility] Comment on above: Performed By: #### I NFLUAB #### [facility] [address] [place] [address] Dr. Benito Dupree MANUAL DIFF REQ NO Normal [facility] Comment on above: Performed By: #### I NFLUAB #### [facility] [address] [place] [address] Dr. Benito Dupree MCH (RBC) [Entitic mass] 24.7 pg Critically low 26.7-34.0 [facility] Comment on above: Performed By: #### I NFLUAB #### [facility] [address] [address] [address] Benito Dupree MCHC (RBC) [Mass/Vol] 30.6 g/dL Normal 29.9-35.2 [facility] Comment on above: Performed By: #### I NFLUAB #### [facility] [address] [place] [address] Dr. Benito Dupree MCV (RBC) [Entitic vol] 80.6 fL Critically low 81.0-99. 0 [facility] Comment on above: Performed By: #### I NFLUAB #### [facility] [address] [address] [address] Benito Dupree MONO # 0.5 103/ul Normal 0.3-0.8 [facility] Comment on above: Performed By: #### I NFLUAB #### [facility] [address] [place] [address] Dr. Benito Dupree Monocytes/100 WBC (Bld) 4.0 % Normal 1.7-12.0 [facility] Comment on above: Performed By: #### I NFLUAB #### [facility] [address] [place] [address] Dr. Benito Dupree NEUT # 10.6 103/ul Critically high 1.4-6.5 [facility] Comment on above: Performed By: #### I NFLUAB #### [facility] [address] [place] [address] Dr. Benito Dupree Neutrophils/100 WBC (Bld) 79.2 % Critically high 43.0-75.0 [facility] Comment on above: Performed By: #### I NFLUAB #### [facility] [address] [place] [address] Dr. Benito Dupree Platelet mean volume (Bld) [Entitic vol] 9.3 fL Critically low 9.5-13.5 [facility] Comment on above: Performed By: #### I NFLUAB #### [facility] [address] [place] [address] Dr. Benito Dupree PLT 391 103/ul Normal 150-[address] [facility] Comment on above: Performed By: #### I NFLUAB #### [facility] [address] [place] [address] Dr. Benito Dupree RBC 5.15 106/ul Normal 4.20-5.40 [facility] Comment on above: Performed By: #### I NFLUAB #### [facility] [address] [place] [address] Dr. Benito Dupree WBC 13.4 103/ul Critically high 4.0-11.0 [facility] Comment on above: Performed By: #### I NFLUAB #### [facility] [address] [address] [address] ABD/PELV W CONon [...] JHA Date: 2022-06-01 14:[address] [facility] ER URINE PROFILEon 2 Bilirubin Ql (U) Negative Normal NEGATIVE [facility] Comment on above: Performed By: #### U MICRO, ERUR #### [facility] [address] [address] [address] Benito Dupree Clarity (U) SL CLOUDY Abnormal CLEAR [facility] Comment on above: Performed By: #### U MICRO, ERUR #### [facility] [address] [address] [address] Benito Dupree Color (U) YELLOW Normal YELLOW [facility] Comment on above: Performed By: #### U MICRO, ERUR #### [facility] [address] [address] [address] Benito BERG A micrscopic examination will be performed if indicated. Normal [facility] Comment on above: Performed By: #### U MICRO, ERUR #### [facility] [address] [address] [address] Benito Dupree Glucose Ql (U) Negative Normal NEGATIVE [facility] [place] Comment on above: Performed By: #### U MICRO, ERUR #### [facility] [address] [address] [address] Benito Dupree Hemoglobin Ql (U) LARGE Abnormal NEGATIVE [facility] Comment on above: Performed By: #### U MICRO, ERUR #### [facility] [address] [address] [address] Benito Dupree Ketones Ql (U) Negative Normal NEGATIVE [facility] [place] Comment on above: Performed By: #### U MICRO, ERUR #### [facility] [address] [address] [address] Benito Dupree LEUKOCYTES Negative Normal NEGATIVE [facility] Comment on above: Performed By: #### U MICRO, ERUR #### [facility] [address] [address] [address] Benito Dupree Nitrite Ql (U) Negative Normal NEGATIVE [facility] [place] Comment on above: Performed By: #### U MICRO, ERUR #### [facility] [address] [address] [address] Benito Dupree pH (U) 5.5 [pH] Normal 5-9 [facility] Comment on above: Performed By: #### U MICRO, ERUR #### [facility] [address] [address] [address] Benito Dupree SPEC GRAVITY 1.010 Normal 1.005-<=1.02 5 [facility] Comment on above: Performed By: #### U MICRO, ERUR #### [facility] [address] [address] [address] Benito Dupree UA PROTEIN TRACE Normal NEGATIVE/ TRACE [facility] Comment on above: Performed By: #### U MICRO, ERUR #### [facility] [address] [address] [address] Benito Dupree UR MICRO IND INDICATED Normal [facility] Comment on above: Performed By: #### U MICRO, ERUR #### [facility] [address] [place] [address] Dr. Benito Dupree Urobilinogen Qn (U) 1.0 {Tuyet'U}/dL Normal 0.2 - 1. 0 [facility] Comment on above: Performed By: #### U MICRO, ERUR #### [facility] [address] [address] [address] Benito Dupree LACTATE/LACTIC ACIDon 2021 Lactate [Moles/Vol] 1.1 mmol/L Normal 0.4-1.9 [facility] Comment on above: Performed By: #### L ACT #### [facility] [address] [place] [address] Dr. Benito Dupree LIPASEon 06-01-2022 Lipase [Catalytic activity/Vol] 111.0 U/L Normal 73.0-393.0 [facility] Comment on above: Performed By: #### I NFLUAB #### [facility] [address] [place] [address] Dr. Benito Dupree PREG HCG QUALon 06-01-2022 , QUAL Negative Normal NEGATIVE [facility] Comment on above: Performed By: #### P REG #### [facility] [address] [place] [address] Dr. Benito Dupree PROF 14(COMP METB)on 022 Albumin [Mass/Vol] 3.6 g/dL Normal 3.4-5.0 [facility] Comment on above: Performed By: #### I NFLUAB #### [facility] [address] [place] [address] Dr. Benito Dupree Albumin/Globulin [Mass ratio] 0.7 {ratio} Normal [facility] Comment on above: Performed By: #### I NFLUAB #### [facility] [address] [address] [address] Benito Dupree ALP [Catalytic activity/Vol] 90 U/L Normal 46-116 [facility] Comment on above: Performed By: #### I NFLUAB #### [facility] [address] [address] [address] Benito Dupree ALT [Catalytic activity/Vol] 39 U/L Normal 14-59 [facility] Comment on above: Performed By: #### I NFLUAB #### [facility] [address] [address] [address] Benito Dupree Anion gap [Moles/Vol] 13.0 mmol/L Normal Th [facility] Comment on above: Performed By: #### I NFLUAB #### [facility] [address] [place] [address] Dr. Benito Dupree AST [Catalytic activity/Vol] 25 U/L Normal 15-37 [facility] Comment on above: Performed By: #### I NFLUAB #### [facility] [address] [place] [address] Dr. Benito Dupree Bilirubin [Mass/Vol] 1.1 mg/dL Critically high 0.2-1.0 [facility] Comment on above: Performed By: #### I NFLUAB #### [facility] [address] [place] [address] Dr. Benito Dupree Calcium [Mass/Vol] 9.4 mg/dL Normal 8.5-10.1 [facility] Comment on above: Performed By: #### I NFLUAB #### [facility] [address] [place] [address] Dr. Benito Dupree Chloride [Moles/Vol] 99 mmol/L Normal 98-107 [facility] Comment on above: Performed By: #### I NFLUAB #### [facility] [address] [address] [address] Benito Dupree CO2 [Moles/Vol] 27.3 mmol/L Normal 21.0-32.0 [facility] Comment on above: Performed By: #### I NFLUAB #### [facility] [address] [address] [address] Benito Dupree Creatinine [Mass/Vol] 0.87 mg/dL Normal 0.55-1.02 [facility] Comment on above: Performed By: #### I NFLUAB #### [facility] [address] [address] [address] Benito Dupree EGFR-AF ARGENTINE >60 Normal >=60 [facility] Comment on above: Performed By: #### I NFLUAB #### [facility] [address] [address] [address] Benito Dupree EGFR-NON AF ARGENTINE >60 Normal >=60 [facility] Comment on above: Performed By: #### I NFLUAB #### [facility] [address] [address] [address] Benito Dupree Globulin (S) [Mass/Vol] 4.8 g/dL Normal [facility] Comment on above: Performed By: #### I NFLUAB #### [facility] [address] [address] [address] Benito Dupree Glucose [Mass/Vol] 218 mg/dL Critically high 74-106 [facility] Comment on above: Performed By: #### I NFLUAB #### [facility] [address] [place] [address] Dr. Benito Dupree Potassium [Moles/Vol] 4.1 mmol/L Normal 3.5-5.1 [facility] Comment on above: Performed By: #### I NFLUAB #### [facility] [address] [place] [address] Dr. Beniot Dupree Protein [Mass/Vol] 8.4 g/dL Critically high 6.4-8.2 [facility] Comment on above: Performed By: #### I NFLUAB #### [facility] [address] [place] [address] Dr. Benito Dupree Sodium [Moles/Vol] 135 mmol/L Critically low 136-145 [facility] Comment on above: Performed By: #### I NFLUAB #### [facility] [address] [place] [address] Dr. Benito Dupree Urea nitrogen [Mass/Vol] 15.0 mg/dL Normal 7.0-18.[address] [facility] Comment on above: Performed By: #### I NFLUAB #### [facility] [address] [place] [address] Dr. Benito Dupree Urea nitrogen/Creatinine [Mass ratio] 17.2 mg/mg Normal [facility] Comment on above: Performed By: #### I NFLUAB #### [facility] [address] [address] [address] Benito Dupree URINE MICROSCOPIC ONLYon BACTERIA TRACE Abnormal NONE SEEN [facility] Comment on above: Performed By: #### U MICRO, ERUR #### [facility] [address] [place] [address] Dr. Benito Dupree Bacteria identified Cx Nom (U) NOT INDICATED Normal [facility] Comment on above: Performed By: #### U MICRO, ERUR #### [facility] [address] [place] [address] Dr. Benito Dupree CAST NONE SEEN Normal NONE SEEN [facility] Comment on above: Performed By: #### U MICRO, ERUR #### [facility] [address] [place] [address] Dr. Benito Dupree Crystals LM Nom (Urine sed) NONE SEEN Normal NONE SEEN [facility] Comment on above: Performed By: #### U MICRO, ERUR #### [facility] [address] [place] [address] Dr. Benito Dupree Epithelial cells LM Ql (Urine sed) MODERATE Abnormal NONE SEEN /RARE [facility] Comment on above: Performed By: #### U MICRO, ERUR #### [facility] [address] [address] [address] Benito Dupree MUCOUS TRACE Abnormal NONE SEEN [facility] Comment on above: Performed By: #### U MICRO, ERUR #### [facility] [address] [place] [address] Dr. Benito Dupree RBC 2-5 Abnormal 0-[address] [facility] Comment on above: Performed By: #### U MICRO, ERUR #### [facility] [address] [address] [address] Benito Dupree WBC 0-2 Abnormal NONE SEEN [facility] Comment on above: Performed By: #### U MICRO, ERUR #### [facility] [address] [address] [address] Benito Dupree XR hand RT min 3V*on 022 XR hand RT min 3V* [facility] [employer] Other XR hand RT min 3V* [facility] [employer] Other XR hand RT min 3V* [address] [place] [address] [employer] Other XR hand RT min 3V* [place] [address] [employer] Other XR hand RT min 3V* XRay Report [employer] Other XR hand RT min 3V* Signed [employer] Other XR hand RT min 3V* Patient: Kyung Paul MR#: [id number] [employer] Other XR hand RT min 3V* : 1990 Acct:[id number] [employer] Other XR hand RT min 3V* Age/Sex: 31 / F ADM Date: 03/22/22 [employer] Other XR hand RT min 3V* Loc: XDUCLY Room: Type: REG CLI [employer] Other XR hand RT min 3V* Attending Dr: Monique SANDOVAL [employer] Other XR hand RT min 3V* Ordering Provider: LORI Dias [employer] Other XR hand RT min 3V* Date of Service: 03/22/22 [employer] Other XR hand RT min 3V* XR/XR hand RT min 3V*: Finger pain, right [employer] Other XR hand RT min 3V* Copies to: JOSEMANUEL DiasC [employer] Other XR hand RT min 3V* 3 viewsRIGHT hand plain film [employer] Other XR hand RT min 3V* COMPARISON:None [facility] [employer] Other XR hand RT min 3V* HISTORY:Fell going upstairs. RIGHT ring finger injury. [employer] Other XR hand RT min 3V* No fracture, dislocation or focal soft tissue abnormality seen. [employer] Other XR hand RT min 3V* XR/XR hand RT min 3V* [employer] Other XR hand RT min 3V* IMPRESSION:No acute findings [employer] Other XR hand RT min 3V* Impression dictated by: Ta Galvan M.D.03/22/2022 4:42 PM [employer] Other XR hand RT min 3V* Dictation Location: [address] [address] [employer] Other XR hand RT min 3V* Transcribed By: DANIELLE 03/22/22 [facility] [employer] Other XR hand RT min 3V* Dictated By: Ta Galvan DO 03/22/22 [facility] [employer] Other XR hand RT min 3V* Signed By: [employer] Other XR hand RT min 3V* 03/22/22 [facility] [employer] Other Vital Signs Date Time Vital Sign Value Performing Clinician Facility 10-04-2024 14:48-0500 Body height 157.5 cm Pato Koehler DPM Work Phone: [facility] 10-04-2024 14:48-0500 Body mass index (BMI) [Ratio] 56.7 kg/m2 Pato Koehler DPM Work Phone: [facility] 10-04-2024 14:48-0500 Body weight 140.62 kg Pato Koehler DPM Work Phone: [facility] 10-04-2024 14:48-0500 Diastolic blood pressure 79 mm[Hg] Pato Koehler DPM Work Phone: [facility] 10-04-2024 14:48-0500 Heart rate 82 /min Pato Koehler DPM Work Phone: [facility] 10-04-2024 14:48-0500 Systolic blood pressure 129 mm[Hg] Pato Koehler DPM Work Phone: [facility] 09-20-2024 14:37-0400 Body height 157.5 cm Pato Koehler DPM Work Phone: [facility] 09-20-2024 14:37-0400 Body mass index (BMI) [Ratio] 56.7 kg/m2 Pato Koehler DPM Work Phone: [facility] 09-20-2024 14:37-0400 Body weight 140.62 kg Pato Koehler DPM Work Phone: [facility] 09-20-2024 14:37-0400 Diastolic blood pressure 77 mm[Hg] Pato Koehler DPM Work Phone: [facility] 09-20-2024 14:37-0400 Heart rate 79 /min Pato Koehler DPM Work Phone: [facility] 09-20-2024 14:37-0400 Systolic blood pressure 126 mm[Hg] Pato Koehler DPM Work Phone: [facility] 09-13-2024 14:46-0400 Body height 157.5 cm Pato Koehler DPM Work Phone: [facility] 09-13-2024 14:46-0400 Body mass index (BMI) [Ratio] 56.7 kg/m2 Pato Koehler DPM Work Phone: [facility] 09-13-2024 14:46-0400 Body weight 140.62 kg Pato Koehler DPM Work Phone: [facility] 09-13-2024 14:46-0400 Diastolic blood pressure 78 mm[Hg] Pato Koehler DPM Work Phone: [facility] 09-13-2024 14:46-0400 Heart rate 85 /min Pato Koehler DPM Work Phone: [facility] 09-13-2024 14:46-0400 Systolic blood pressure 123 mm[Hg] Pato Koehler DPM Work Phone: [facility] 08-30-2024 14:58-0400 Body height 157.5 cm Pato Koehler DPM Work Phone: [facility] 08-30-2024 14:58-0400 Body mass index (BMI) [Ratio] 56.7 kg/m2 Pato Brown DPM Work Phone: [facility] 08-30-2024 14:58-0400 Body weight 140.62 kg Pato Koehler DPM Work Phone: [facility] 08-30-2024 14:58-0400 Diastolic blood pressure 80 mm[Hg] Pato Koehler DPM Work Phone: [facility] 08-30-2024 14:58-0400 Heart rate 75 /min Pato Brown DPM Work Phone: [facility] 08-30-2024 14:58-0400 Respiratory rate 18 /min Pato Koehler DPM Work Phone: [facility] 08-30-2024 14:58-0400 Systolic blood pressure 128 mm[Hg] Pato Brown DPM Work Phone: [facility] 05-16-2024 15:25-0400 Diastolic blood pressure 70 mm[Hg] AUDIO VISUAL FACILITIES ENGINEER-C Monique Emmanuel Work Phone: [facility] 05-16-2024 15:25-0400 Heart rate 80 /min AUDIO VISUAL FACILITIES ENGINEER-C Monique Whitleymer Work Phone: [facility] 05-16-2024 15:25-0400 Respiratory rate 22 /min AUDIO VISUAL FACILITIES ENGINEER-C Monique Emmanuel Work Phone: [facility] 05-16-2024 15:25-0400 SaO2% (BldA) [Mass fraction] 94 % AUDIO VISUAL FACILITIES ENGINEER-C Monique Emmanuel Work Phone: [facility] 05-16-2024 15:25-0400 Systolic blood pressure 124 mm[Hg] AUDIO VISUAL FACILITIES ENGINEER-C Monique Emmanuel Work Phone: [facility] 05-16-2024 12:57-0400 Body temperature 98.6 [degF] AUDIO VISUAL FACILITIES ENGINEER-C Monique Emmanuel Work Phone: [facility] 05-16-2024 12:57-0400 Inhaled oxygen flow rate 6 L/min AUDIO VISUAL FACILITIES ENGINEER-C Monique Emmanuel Work Phone: [facility] 05-16-2024 10:38-0400 Body mass index (BMI) [Ratio] 56.5 kg/m2 AUDIO VISUAL FACILITIES ENGINEER-C Monique Emmanuel Work Phone: [facility] 05-16-2024 10:31-0400 Body height 157.48 cm AUDIO VISUAL FACILITIES ENGINEER-C Monique Emmanuel Work Phone: [facility] 05-16-2024 10:31-0400 Body weight 140.16 kg AUDIO VISUAL FACILITIES ENGINEER-C Monique Whitleymer Work Phone: [facility] 04-25-2024 13:27-0400 Diastolic blood pressure 85 mm[Hg] Pato Koehler [facility] 04-25-2024 13:27-0400 Heart rate 64 /min Pato Koehler [facility] 04-25-2024 13:27-0400 Mean blood pressure 103 mm[Hg] Pato Koehler [facility] 04-25-2024 13:27-0400 Systolic blood pressure 139 mm[Hg] Pato Koehler [facility] 04-25-2024 13:26-0400 Heart rate 65 /min Pato Koehler [facility] 04-25-2024 13:26-0400 Respiratory rate 16 /min Pato Koehler [facility] 04-25-2024 13:26-0400 SaO2% (BldA) [Mass fraction] 93 % Pato Koehler [facility] 04-25-2024 13:26-0400 Blood Pressure Location Pato Koehler [facility] 04-25-2024 13:26-0400 Body temperature 98.42 [degF] Pato Koehler [facility] 04-25-2024 13:26-0400 Diastolic blood pressure 83 mm[Hg] Pato Koehler [facility] 04-25-2024 13:26-0400 Mean blood pressure 100 mm[Hg] Pato Koehler [facility] 04-25-2024 13:26-0400 Systolic blood pressure 135 mm[Hg] Pato Koehler [facility] 02-27-2024 17:36-0400 Body height 154.94 cm AUDIO VISUAL FACILITIES ENGINEER-C Monique Emmanuel Work Phone: [facility] 02-27-2024 17:36-0400 Body mass index (BMI) [Ratio] 58.4 kg/m2 AUDIO VISUAL FACILITIES ENGINEER-C Monique Emmanuel Work Phone: [facility] 02-27-2024 17:36-0400 Body temperature 97.7 [degF] AUDIO VISUAL FACILITIES ENGINEER-C Monique Emmanuel Work Phone: [facility] 02-27-2024 17:36-0400 Body weight 140.38 kg AUDIO VISUAL FACILITIES ENGINEER-C Monique Emmanuel Work Phone: [facility] 02-27-2024 17:36-0400 Heart rate 87 /min AUDIO VISUAL FACILITIES ENGINEER-C Monique Emmanuel Work Phone: [facility] 02-27-2024 17:36-0400 Respiratory rate 18 /min AUDIO VISUAL FACILITIES ENGINEER-C Monique Emmanuel Work Phone: [facility] 02-27-2024 17:36-0400 SaO2% (BldA) [Mass fraction] 97 % AUDIO VISUAL FACILITIES ENGINEER-C Monique Emmanuel Work Phone: [facility] 03-22-2022 16:45-0400 Body height 154.94 cm Monique Suemond Other [employer] Other 03-22-2022 16:45-0400 Body mass index (BMI) [Ratio] 58.38 kg/m2 Monique Suemond Other [employer] Other 03-22-2022 16:45-0400 Body temperature 97.9 [degF] Monique Dudley Other [employer] Other 03-22-2022 16:45-0400 Body weight 140.16 kg Monique Dudley Other [employer] Other 03-22-2022 16:45-0400 Diastolic blood pressure 93 mm[Hg] Monique Suemond Other [employer] Other 03-22-2022 16:45-0400 Respiratory rate 20 /min Monique Suemond Other [employer] Other 03-22-2022 16:45-0400 SaO2% (BldA) [Mass fraction] 98 % Monique Dudley Other [employer] Other 03-22-2022 16:45-0400 Systolic blood pressure 154 mm[Hg] Monique Dudley Other [employer] Other Encounters Encounter Date Encounter Type Care Provider Facility Start: 10-04-2024 End: 10-04-2024 Postop follow up visit related to original px Pato Elizabeth Rodo DPM Work Phone: [facility] Comment on above: 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); Contracture of right ankle; Stress fracture of right foot, initial encounter Start: 10-04-2024 End: 10-04-2024 ambulatory PATO KOEHLER Not Available Start: 10-04-2024 End: 10-04-2024 Bamboo flowsheet Pato Koehler DPM Work Phone: [facility] Start: 10-04-2024 End: 10-04-2024 Bamboo flowsheet Pato Koehler DPM Work Phone: [facility] Start: 09-20-2024 End: 09-20-2024 Postop follow up visit related to original px Pato Koehler DPM Work Phone: [facility] Comment on above: 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); Contracture of right ankle Start: 09-20-2024 End: 09-20-2024 ambulatory PATO KOEHLER Not Available Start: 09-20-2024 End: 09-20-2024 Bamboo flowsheet Pato Koehler DPM Work Phone: [facility] Start: 09-20-2024 End: 09-20-2024 Bamboo flowsheet Pato Koehler DPM Work Phone: [facility] Start: 09-13-2024 End: 09-13-2024 Postop follow up visit related to original px Pato Koehler DPM Work Phone: [facility] Comment on above: 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); Contracture of right ankle; Type 2 diabetes mellitus without complication, 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 long term care pharmacist insulin use (CMS/[facility]) Start: 09-13-2024 End: 09-13-2024 ambulatory PATO KOEHLER Not Available Start: 09-07-2024 End: 09-07-2024 Telephone encounter Pato Koehler DPM Work Phone: [facility] Start: 09-05-2024 End: 09-05-2024 Lab Drop off Pato Koehler [facility] Start: 09-05-2024 End: 09-05-2024 ambulatory DPM Pato Koehler Facility:[facility] Start: 08-30-2024 End: 08-30-2024 Office outpatient visit 25 minutes Pato Koehler DPM Work Phone: [facility] Comment on above: 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); Type 2 diabetes mellitus without complication, 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 long term care pharmacist insulin use (CMS/[facility]); Heel spur, left; Plantar fasciitis; Contracture of left ankle; Contracture of right ankle Start: 08-30-2024 End: 08-30-2024 ambulatory PATO KOEHLER Not Available Start: 08-30-2024 End: 08-30-2024 Bamboo flowsheet Pato Koehler DPM Work Phone: [facility] Start: 08-30-2024 End: 08-30-2024 Bamboo flowsheet Pato Koehler DPM Work Phone: [facility] Start: 08-02-2024 End: 08-02-2024 ambulatory PATO KOEHLER Not Available Start: 07-24-2024 End: 07-24-2024 ambulatory JAIME CAMARGO Not Available Start: 07-19-2024 End: 07-19-2024 ambulatory PATO KOEHLER Not Available Start: 06-28-2024 End: 06-28-2024 ambulatory PATO KOEHLER Not Available Start: 06-07-2024 End: 06-07-2024 ambulatory PATO KOEHLER Not Available Start: 05-24-2024 End: 05-24-2024 ambulatory PATO Elizabeth RODO Not Available Start: 05-16-2024 End: 05-16-2024 Admission to same day surgery center AUDIO VISUAL FACILITIES ENGINEER-C Monique Emmanuel Work Phone: [facility] [place] Start: 05-16-2024 End: 05-16-2024 ambulatory AUDIO VISUAL FACILITIES ENGINEER-C Monique Emmanuel Work Phone: [facility] Work Phone: Start: 05-03-2024 End: 05-03-2024 ambulatory PATO KOEHLER Not Available Start: 04-25-2024 ambulatory Pato Koehler Facili ty:[facility] Start: 04-25-2024 End: 04-25-2024 ambulatory DPM Pato Koehler Facility:[facility] Start: 04-25-2024 End: 04-25-2024 Patient encounter procedure Pato Koehler [facility] Start: 04-16-2024 End: 05-10-2024 Pre-admission assessment Pato Koehler [facility] Start: 04-12-2024 End: 04-12-2024 ambulatory PATO KOEHLER Not Available Start: 03-29-2024 End: 03-29-2024 ambulatory PATO KOEHLER Not Available Start: 02-27-2024 End: 02-27-2024 ambulatory AUDIO VISUAL FACILITIES ENGINEER-C Monique Emmanuel Work Phone: [facility] Work Phone: Start: 02-27-2024 End: 02-27-2024 Patient encounter procedure AUDIO VISUAL FACILITIES ENGINEER-C Monique Emmanuel Work Phone: [facility] Work Phone: Start: 04-27-2023 ambulatory MONIQUE EMMANUEL Facility: [facility] Start: 01-05-2023 End: 01-05-2023 ambulatory MONIQUE EMMANUEL Facility:[facility] Start: 11-28-2022 End: 11-29-2022 ambulatory MONIQUE EMMANUEL Facility:[facility] Start: 11-15-2022 End: 11-16-2022 ambulatory MONIQUE EMMANUEL Facility:[facility] Start: 10-25-2022 End: 11-27-2022 ambulatory MONIQUE EMMANUEL Facility:[facility] Start: 08-25-2022 End: 08-26-2022 ambulatory MONIQUE EMMANUEL Facility:[facility] Start: 08-19-2022 Encounter for genera l adult medical examination without abnormal findings MONIQUE EMMANUEL [facility] Start: 08-18-2022 End: 08-19-2022 ambulatory MONIQUE EMMANUEL Facility:[facility] Start: 08-18-2022 End: 08-19-2022 Encounter for general adult medical examination without abnormal findings MONIQUE EMMANUEL Facility:[facility] Start: 06-01-2022 End: 06-01-[address] WESTLEY JHA Facility:[facility] Start: 03-22-2022 End: 03-22-2022 ambulatory Monique Dudley Other [employer] Other Start: 03-22-2022 Office outpatient vi sit 15 minutes Monique Dudley [facility] Procedures Date Procedure Procedure Detail Performing Clinician Start: 05-16-2024 Debridement AUDIO VISUAL FACILITIES ENGINEER-C Shruti Emmanuel Work Phone: Start: 05-16-2024 X-ray of left foot AUDIO VISUAL FACILITIES ENGINEER-C Monique Emmanuel Work Phone: Start: 02-27-2024 Plain X-ray of right shoulder AUDIO VISUAL FACILITIES ENGINEER-C Monique Emmanuel Work Phone: Cholecystectomy Pato pulliam Plan of Treatment Date Care Activity Detail Author Start: 10-04-2024 End: 10-04-2024 Patient encounter procedure 10/04/2024 2:40 PM EST Office Visit [facility] [address] [place] [address] Pato Koehler DPM [address] [address] 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); Contracture of right ankle [facility] Comment on above: 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); Contracture of right ankle Start: 09-20-2024 End: 09-20-2024 Patient encounter procedure 09/20/2024 2:40 PM EDT Office Visit [facility] [address] [facility] [address] [place] [address] Pato Koehler DPM [address] [address] 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); Contracture of right ankle [facility] Comment on above: 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); Contracture of right ankle Start: 09-13-2024 End: 09-13-2024 Patient encounter procedure 09/13/2024 3:20 PM EDT Office Visit [facility] [address] [address] Pato Koehler DPM [address] [address] [facility] Start: 09-12-2024 End: 09-12-2024 Patient encounter procedure 09/12/2024 3:00 PM EDT Office Visit [facility] [address] [place] [address] Pato Koehler DPM [address] [id number] [facility] Start: 09-05-2024 End: 09-05-2024 Patient encounter procedure 09/05/2024 7:30 AM EDT Procedure Visit [facility] Pato Koehler DPM [address] [address] [facility] Start: 08-30-2024 End: 08-30-2024 Patient encounter procedure 08/30/2024 2:50 PM EDT Office Visit [facility] [address] 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); Type 2 diabetes mellitus without complication, 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 long term care pharmacist insulin use ([facility]) Start: 05-16-2024 [facility] Start: 05-16-2024 [facility] MR Foot - right WO contrast MR foot right wo IV contrast Imaging Routine Stress fracture of right foot, initial encounter Ordered: 10/04/2024 [facility] Work Phone: Comment on above: Ordered: 10/04/2024 Patient Education Know your Meds [facility] Work Phone: XR Foot - right 3 Views XR foot 3+ views right Imaging Routine Accessory navicular bone of right foot 09/13/2024 3:04 PM EDT [facility] Work Phone: Immunizations Immunization Date Immunization Notes Care Provider Fa [facility] 07-19-2002 hepatitis B vaccine, pediatric or pediatric/adolescent dosage Pato Koehler DPM Work Phone: [facility] 07-19-2002 measles, mumps and rubella virus vaccine Pato Koehler DPM Work Phone: [facility] 04-16-1993 diphtheria, tetanus toxoids and pertussis vaccine Pato Koehler DPM Work Phone: [facility] 04-16-1993 trivalent poliovirus vaccine, live, oral Pato Koehler DPM Work Phone: [facility] 05-18-1990 haemophilus influenz ae type b vaccine, conjugate unspecified formulation Pato Koehler DPM Work Phone: [facility] 10-13-1989 diphtheria, tetanus toxoids and pertussis vaccine Pato Koehler DPM Work Phone: [facility] 10-13-1989 measles, mumps and rubella virus vaccine Pato Koehler DPM Work Phone: [facility] 10-13-1989 trivalent poliovirus vaccine, live, oral Pato Koehler DPM Work Phone: [facility] 05-11-1989 diphtheria, tetanus toxoids and pertussis vaccine Pato Koehler DPM Work Phone: [facility] 03-17-1989 diphtheria, tetanus toxoids and pertussis vaccine Pato Koehler DPM Work Phone: [facility] 03-17-1989 trivalent poliovirus vaccine, live, oral Pato Koehler DPM Work Phone: [facility] 1988 diphtheria, tetanus toxoids and pertussis vaccine Pato Koehler DPM Work Phone: [facility] 1990 trivalent poliovirus vaccine, live, oral Pato Koehler DPM Work Phone: [facility] Payers Date Payer Category Payer Self-pay [id number] 2020 [facility] er [id number] 2020 Unknown BCBS BCBS xxxxxx [id number] 2020-Present [phone] [address] [place] [address] [id number]. [id number] 1988 Unknown [id number] 2.16.840.1.848863.3.579. 2.593 1988 Unknown [id number] 2.16.840.1.259036.3.579. 2.593 1988 Unknown [id number] 2.16.840.1.028503.3.579. 2.593 1988 Unknown [id number] 2.16.840.1.385935.3.579. 2.593 1988 Unknown [id number] 2.16.840.1.349101.3.579. 2.593 1988 Unknown [id number] 2.16.840.1.711977.3.579. 2.593 1988 Unknown [id number] 2.16.840.1.204155.3.579. 2.593 1988 Unknown [id number] 2.16.840.1.241714.3.579. 2.593 1988 Unknown [id number] 2.16.840.1.042828.3.579. 2.727 1988 Unknown [id number] 2.16.840.1.839366.3.579. 2.1259 1988 Unknown [id number] 2.16.840.1.825542.3.579. 2.1258 1988 Unknown [id number] 2.16.840.1.258775.3.579. 2.1258 1988 Unknown [id number] 2.16.840.1.835630.3.579. 2.1258 1988 Unknown [id number] 2.16.840.1.363271.3.579. 2.1258 1988 Unknown [id number] 2.16.840.1.344296.3.579. 2.1258 1988 Unknown [id number] 2.16.840.1.781614.3.579. 2.727 1988 Unknown [id number] 2.16.840.1.448579.3.579. 2.1258 1988 Unknown [id number] 2.840.1.302615.3.579. 2.1258 1988 Unknown [id number] 2.840.1.368780.3.579. 2.1258 1988 Unknown [id number] 2.16.840.1.261383.3.579. 2.1258 1988 Unknown [id number] 2.16.840.1.828611.3.579. 2.1258 1988 Unknown [id number] 2.16.840.1.447778.3.579. 2.1258 1988 Unknown [id number] 2.16.840.1.509066.3.579. 2.1258 1988 Unknown [id number] 2.16.840.1.248445.3.579. 2.1258 1988 Unknown [id number] 2.16.840.1.494107.3.579. 2.1258 1959 [employer] Blue Shield [id number] 2.16.840.1.740131.19 Unknown [id number] 2.16.840.1.120204.3.579. 2.531 Unknown [id number] 2.16840.1.422441.3.579. 2.531 Social History Date Type Detail Facility Unknown if ever smoked [facility] Other Start: 08-02-2024 End: 09-20-2024 Sex Assigned At [facility] Start: 10-25-2018 End: 03-29-2024 Tobacco smoking status NHIS Never smoked tobacco (finding) [facility] Start: 1990 Sex Assigned At Female [facility] Tobacco smoking status No Smoking Status Entered [facility] Start: 03-29-2024 Tobacco use and exposure Smokeless tobacco non-user [facility] Start: 08-02-2024 End: 10-04-2024 Alcoholic beverage intake Lifetime non-drinker (finding) [facility] Start: 08-02-2024 End: 09-20-2024 History of Social function [facility] Start: 1990 Sex assigned at Not on file [facility] NEGATED: Highlighted rowStart: NINF History of tobacco use Passive smoker [facility] Goals Date Patient Goal Desired Activity /State Functional Status Date Assessment Result Facility 04-25-2024 Functional Status No [facility] Clinical Notes 03-22-2022 to 10-04-2024 Pato Koehler DPM - 10/04/2024 2:40 PM Osman Koehler DPM - 09/20/2024 2:30 PM EDTTelephone Encounter - Pato Koehler DPM - 09/07/2024 8:26 AM EDT Note Date & Type Note Facility 10-04-2024 History of Presen t illness Narrative Patient: Kyung Paul : 1990 PCP: Erich Garcia MD SUBJECTIVE This is a 34 y.o. female that presents today 29 days s/p right modified Kidner right foot Pt denies n/f/v/c and has minimal pain to post op site. Pt states that they have been keeping dressing dry and intact and have been weightbearing to post op foot with walking boot Pt presents today for follow up. Patient continues have pain to the area of her dorsal part of her incision site that extends up to her ankle region particularly around the medial malleolar region has continued pain to the area with weight-bearing or nonweightbearing Allergies: Allergies Allergen Reactions Sulfa Antibiotics Rash and Hives Past Medical History: Past Medical History: Diagnosis Date Diabetes ([facility]) Ear problems GERD (gastroesophageal reflux disease) 2011 Obesity Otitis media, chronic Sleep difficulties Medications: Current Outpatient Medications: cholecalciferol (Vitamin D-3) 125 MCG (5000 UT) tablet, 1 (one) time each day at the same time, Disp: , Rfl: Lexapro 10 MG tablet, 1 (one) time each day at the same time, Disp: , Rfl: metFORMIN (Glucophage) 500 MG tablet, 1 (one) time each day at the same time, Disp: , Rfl: omeprazole (PriLOSEC) [address] capsule, TAKE 1 CAPSULE BY MOUTH EVERY DAY for 90, Disp: , Rfl: traZODone (Desyrel) 50 MG tablet, 1 (one) time each day at the same time, Disp: , Rfl: ROS: General: denies fever, chills, fatigue, malaise OBJECTIVE LE EXAM: Derm: Sutures intact to right foot with negative erythema, negative drainage, positive edema with negative clinical signs of infection. Vascular: Palpable pedal pulses to right foot Neuro: Gross sensation intact to right foot. Musculoskeletal: Negative pain on palpation to right calf. Ortho: Ankle range of motion less than 10 degrees of dorsiflexion at right ankle joint. Positive pain on palpation to the right dorsal aspect of the navicular and 1st cuneiform region and medial malleolar region XRAY: ASSESSMENT 29 days s/p modified Kidner right foot 1. Accessory navicular bone of right foot 2. Contracture of right ankle PLAN Sutures were removed today to the foot and patient in now able to get foot wet. Patient to continue with oral anti - inflammatories as needed for pain and recommended OTC medications such as tylenol or Ibuprofen May discontinue walking boot MRI ordered for rule out possible stress fracture or other etiology of foot pain right Pato Koehler DPM documented in this encounter [facility] 09-20-2024 History of Presen t illness Narrative Patient: Kyung Paul : 1990 PCP: Erich Garcia MD SUBJECTIVE This is a 34 y.o. female that presents today 15 days s/p right modified Kidner right foot Pt denies n/f/v/c and has minimal pain to post op site. Pt states that they have been keeping dressing dry and intact and have been nonweightbearing to post op foot Pt presents today for follow up. Allergies: Allergies Allergen Reactions Sulfa Antibiotics Rash and Hives Past Medical History: Past Medical History: Diagnosis Date Diabetes ([facility]) Ear problems GERD (gastroesophageal reflux disease) 2011 Obesity Otitis media, chronic Sleep difficulties Medications: Current Outpatient Medications: cholecalciferol (Vitamin D-3) 125 MCG (5000 UT) tablet, 1 (one) time each day at the same time, Disp: , Rfl: Lexapro 10 MG tablet, 1 (one) time each day at the same time, Disp: , Rfl: metFORMIN (Glucophage) 500 MG tablet, 1 (one) time each day at the same time, Disp: , Rfl: omeprazole (PriLOSEC) [address] capsule, TAKE 1 CAPSULE BY MOUTH EVERY DAY for 90, Disp: , Rfl: traZODone (Desyrel) 50 MG tablet, 1 (one) time each day at the same time, Disp: , Rfl: ROS: General: denies fever, chills, fatigue, malaise OBJECTIVE LE EXAM: Derm: Sutures intact to right foot with negative erythema, negative drainage, positive edema with negative clinical signs of infection. Vascular: Palpable pedal pulses to right foot Neuro: Gross sensation intact to right foot. Musculoskeletal: Negative pain on palpation to right calf. Ortho: Ankle range of motion less than 10 degrees of dorsiflexion at right ankle joint. XRAY: ASSESSMENT 15 days s/p modified Kidner right foot 1. Accessory navicular bone of right foot 2. Contracture of right ankle PLAN Sutures were removed today to the foot and patient in now able to get foot wet. Patient to continue with oral anti - inflammatories as needed for pain and recommended OTC medications such as tylenol or Ibuprofen Continue with strict nonweightbearing Pt dispensed pneumatic CAM walker ([id number]) today to maintain 90 degree foot to ankle position. Pt informed to only remove walker when at rest or bathing. ABN signed and in chart for device if warranted. The boot was assembled and adjusted liner and straps and pneumatically inflated for proper custom fitting by Pato Koehler DPM and staff. A verbal order was given for dispensing of device. The patient is ambulatory and may benefit functionally from this device. It may be used for the following conditions as noted per medical diagnosis. Pato Koehler DPM documented in this encounter [facility] 09-07-2024 Telephone encount er Note Has been called for possible increase in pain medication and will switch from hydrocodone to oxycodone and sent to [facility] and [facility] 09-07-2024 Miscellaneous Notes Formattin g of this note might be different from the original. Has been called for possible increase in pain medication and will switch from hydrocodone to oxycodone and sent to [facility] and [facility] documented in this encounter [facility] 08-30-2024 History of Presen t illness Narrative Patient: Kyung Paul : 1990 PCP: Erich Garcia MD SUBJECTIVE This is a 34 y.o. female that presents today for a a follow up of an accessory navicular bone that is painful with ambulation to the right foot Patient states pain particularly with steps in the morning and rates pain up to 8 /10 on 10 pain scale. Patient denies trauma. She is failed conservative treatments up to this point time and would like surgical intervention is scheduled to have a Kidner procedure with tendon anchor with removal of accessory navicular bone of the right foot Patient is scheduled for right modified Kidner procedure with tendon anchor and removal accessory navicular in the near future. Patient procedures unrelated to prior left foot procedure. Patient also presents today with complaints of left heel pain particularly 1st steps in the morning unrelated to prior surgical procedure. She states pain up to a 10/10 at times particularly 1st steps and has tried anti-inflammatories with minimal improvement. She is also type 2 diabetic Allergies: Allergies Allergen Reactions Sulfa Antibiotics Rash and Hives Past Medical History: Past Medical History: Diagnosis Date Diabetes ([facility]) Ear problems GERD (gastroesophageal reflux disease) 2012 Obesity Otitis media, chronic Sleep difficulties Medications: Current Outpatient Medications: cholecalciferol (Vitamin D-3) 125 MCG (5000 UT) tablet, 1 (one) time each day at the same time, Disp: , Rfl: Lexapro 10 MG tablet, 1 (one) time each day at the same time, Disp: , Rfl: metFORMIN (Glucophage) 500 MG tablet, 1 (one) time each day at the same time, Disp: , Rfl: omeprazole (PriLOSEC) [address] capsule, TAKE 1 CAPSULE BY MOUTH EVERY DAY for 90, Disp: , Rfl: traZODone (Desyrel) 50 MG tablet, 1 (one) time each day at the same time, Disp: , Rfl: Social History: Social History Socioeconomic History Marital status: Spouse name: Not on file Number of children: Not on file Years of education: Not on file Highest education level: Not on file Occupational History Not on file Tobacco Use Smoking status: Never Passive exposure: Never Smokeless tobacco: Never Vaping Use Vaping status: Unknown Substance and Sexual Activity Alcohol use: Never Drug use: Never Sexual activity: Defer Other Topics Concern Not on file Social History Narrative Not on file Social Determinants of Health Financial Resource Strain: Not on file Food Insecurity: Not on file Transportation Needs: Not on file Physical Activity: Not on file Stress: Not on file Social Connections: Not on file Intimate Partner Violence: Not on file Housing Stability: Not on file ROS: Gastrointestinal: denies abdominal pain, ulcers, or changes in appetite or bowel habits. Positive history of GERD Musculoskeletal: denies arthritis, denies loss of strength, pain to hip, knees, back Cardiovascular: denies CP, palpitations, irregular rhythms. OBJECTIVE LE EXAM: DERM: Positive hair growth to b/l feet with good skin turgor noted. Negative openings in skin. Negative erythema or rubor to the right 1st MPJ region Scar to left navicular region with bony prominence to right navicular region of navicular tuberosity VASC: Palpable pedal pulsed b/l with warm to cool tibia to toes b/l NEURO: 5.07 Marlin Deyanira monofilament test positive to digits and forefoot bilaterally 125Hz tuning fork positive to 1st MPJ bilaterally ORTHO: +5/5 DF/PF/IN/EV right, +5/5 DF/PF/IN/EV left. 20 degrees inversion and 10 degrees eversion STJ b/l. Ankle ROM less than 10 degrees b/l. Positive pain on palpation to the right navicular tuberosity and posterior tibial tendon insertion point on the right navicular tuberosity Negative pain on palpation to the right 1st MPJ region Negative pain on palpation to left ankle synovium and medial ankle gutter and capsule Positive pain on palpation to the left medial calcaneal tubercle DIAGNOSTIC US REPORT - verbal order for ultrasound today The plantar arch and heel of the left foot were scanned today using a 12MHz linear probe in the transverse and sagittal planes, concerning the plantar fascia. Images were obtained. FINDINGS - US exam demonstrates hypo-echoic thickening of plantar fascia with its origin at the medial plantar tuberosity of the calcaneus. The area of thickening and inflammation is greater than 4mm (norm = 4 mm). 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 Type 2 diabetes mellitus without complication, 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 intermediate insulin use ([facility]) 3. Heel spur, left 4. Plantar fasciitis 5. Contracture of left ankle 6. Contracture of right ankle PLAN Patient given prescription for pain medication to be taken postoperatively. Decision for surgery today and patient medically cleared from a podiatric standpoint for surgery and to proceed with surgery. Pt to have pre op H/P per PCP for medical clearance for surgery and will be reviewed along with labs prior to surgery. Pt scheduled for modified Kidner procedure with tendon anchor right foot Discussed with the patient the nature of condition and operative vs nonoperative care. The surgical plans, risks, alternatives, benefits, post op complications and long term care pharmacist expectations were discussed including but not limited to: infection,bone infection,wound dehiscence hardware failure and irritation,wound dehiscence,delay union/mal union/non union of bone. RSDS,neuroma,duty limitations,DVT/PE, [place],nerve damage, scar, loss of sensation, swelling. Pt understands the proposed sx in detail and has agreed with proposed surgery. No guarantees were given or implied. Pt willingly consents to procedure and to have surgical procedure. Pt also understands risks including COVID-19 current risk in a surgical setting. Pt is a low acceptable risk for outpatient surgery from a podiatric standpoint with an ASA of a 2. Reviewed ultrasound today with patient Pt given steroid injection to left medial calcaneal tubercle under US guidance with visualization of injected fluid into area of concern per imaging. Injection of 1cc kenalog 10 and 2cc xylocaine 2% plain. Informed patient of risks and benefits of injection including non resolution of symptoms,steroid flare, tendon damage or rupture. Pt consents to proceed. This is the patients 1st injection. Procedure unrelated to prior procedure Pt was fitted for custom made orthotics today. Orthotics were deemed to fit appropriately and patient was informed of proper break in of devices. Patient education on break in of device. ABN signed and in chart if warranted. Pato Koehler DPM, FACFAS H&P up to date and current (date) August 30, 2024 Ptao Koehler DPM documented in this encounter [facility] 03-22-2022 Evaluation note Encounter Date Diagnosis Assessment [...] no improvement in 5 to 7 days. [facility] Other Evaluation + Plan note Future Appointments Appointment Date:05/09/2024 07:30:00 AM Scheduled Provider: Location:[facility] information [facility] Work Phone: Evaluation note* Diagnosis 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 Type 2 diabetes mellitus without complication, 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 long term care pharmacist insulin use ([facility]) Heel spur, left Plantar fasciitis Plantar fascial fibromatosis Contracture of left ankle Contracture of right ankle documented in this encounter [facility]* Diagnosis 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 documented in this encounter [facility]* Diagnosis 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 Contracture of right ankle Type 2 diabetes mellitus without complication, 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 long term care pharmacist insulin use ([facility]) [facility] Diagnosis 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 Contracture of right ankle documented in this encounter [facility]* Diagnosis 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 Contracture of right ankle Stress fracture of right foot, initial encounter documented in this encounter [facility] HealthcareHistory general Narrative - Reported* Type Description Date Medical History Acquired hypothyroidism Medical History vitamin D deficiency Surgical History cholecystectomy Hospitalization History No Hospitalization [facility] [employer] Other History of Present illness Narrative* Pato Koehler, DPM - 09/13/2024 3:20 PM EDT Patient: Kyung Paul : 1990 PCP: Erich Garcia MD SUBJECTIVE This is a 34 y.o. female that presents today 8 days s/p right modified Kidner right foot Pt denies n/f/v/c and has minimal pain to post op site. Pt states that they have been keeping dressing dry and intact and have been nonweightbearing to post op foot Pt presents today for follow up. Allergies: Allergies Allergen Reactions Sulfa Antibiotics Rash and Hives Past Medical History: Past Medical History: Diagnosis Date Diabetes ([facility]) Ear problems GERD (gastroesophageal reflux disease) 2011 Obesity Otitis media, chronic Sleep difficulties Medications: Current Outpatient Medications: cholecalciferol (Vitamin D-3) 125 MCG (5000 UT) tablet, 1 (one) time each day at the same time, Disp: , Rfl: Lexapro 10 MG tablet, 1 (one) time each day at the same time, Disp: , Rfl: metFORMIN (Glucophage) 500 MG tablet, 1 (one) time each day at the same time, Disp: , Rfl: omeprazole (PriLOSEC) [address] capsule, TAKE 1 CAPSULE BY MOUTH EVERY DAY for 90, Disp: , Rfl: oxyCODONE-acetaminophen (Percocet) 5-325 MG tablet, Take 1 tablet by mouth every 8 (eight) hours ifneeded for severe pain for up to 5 days, Disp: 15 tablet, Rfl: 0 traZODone (Desyrel) 50 MG tablet, 1 (one) time each day at the same time, Disp: , Rfl: ROS: General: denies fever, chills, fatigue, malaise OBJECTIVE LE EXAM: Derm: Sutures intact to right foot with negative erythema, negative drainage, positive edema with negative clinical signs of infection. Vascular: Palpable pedal pulses to right foot Neuro: Gross sensation intact to right foot. Musculoskeletal: Negative pain on palpation to right calf. Ortho: Ankle range of motion less than 10 degrees of dorsiflexion at right ankle joint. XRAY: Verbal order today for x-rays be taken by staff. AP/Oblique/Lateral 3 view radiographs today of the right foot demonstrated the following: Notable removal of accessory bone but not able to see tendon anchor due to days radiolucent and absorbable ASSESSMENT 8 days s/p modified Kidner right foot 1. Accessory navicular bone of right foot 2. Contracture of right ankle 3. Type 2 diabetes mellitus without complication, 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 long term care pharmacist insulin use ([facility]) PLAN Patient to keep dry sterile dressing intact and keep dressing dry with non weightbearing. Patient may take anti-inflammatories as needed for pain. May continue with ice to foot as needed p.r.n. Re-application of posterior splint to the right leg today, Today's procedure is a staged procedure and patient may need further procedures in the future. Reviewed x-rays today with patient Pato Koehler DPM documented in this [facility] course Narrative No data available for this section [facility] Discharge instructions No data available for this section [facility] Discharge instructions Additional Instructions DISCHARGE INSTRUCTIONS [...] operative site FOLLOW UP Phone numbers: Office [phone] [ ][facility] Work Phone: Progress note No data available for this section [facility] Summary Purpose Family History No Family [...] foot accessory navicular w/ type 2 diabetes Reason for Referral Specialty Diagnoses / Procedures Referred By Contac t Referred To Contact Diagnoses Accessory navicular bone of right foot Pato Koehler DPM [address] [address] Referral ID Status Reason Start Date Expiration Date V isits Requested Visits Authorized [id number] Pending Review 09/07/2024 03/06/2025 1 1 Additional Source Comments REASON FOR VISIT (unrecogniz ed section and content) Reason Comments Consent Or Instructions Pre op- rt kidne r Reason Comments Post-op 1st post op rt ft Reason Comments Post-op 16 D post op rt ft Reason Comments Post-op 29 D rt ft F/U INFORMATION SOURCE (unrecogn ized section and content) DATE CREATED AUTHOR 05/06/2023 [facility] DATE CREATED AUTHOR AUTHOR'S ORGANIZ ATION 04/26/2024 [facility] DATE CREATED AUTHOR AUTHOR'S ORGANIZ ATION 05/25/2024 [facility] DATE CREATED AUTHOR AUTHOR'S ORGANIZ ATION 07/01/2024 [facility] DATE CREATED AUTHOR AUTHOR'S ORGANIZ ATION 09/12/2024 [facility] DATE CREATED AUTHOR AUTHOR'S ORGANIZ ATION 09/13/2024 [facility] DATE CREATED AUTHOR AUTHOR'S ORGANIZ ATION 09/15/2024 [facility] DATE CREATED AUTHOR AUTHOR'S ORGANIZ ATION 10/06/2024 [facility] EPIC Care Teams (unrecognized [...] May 16, 2024 End: May 16, 2024 Videotape Recording Engineer Relationship Specialty Start Date End Date Erich Garcia MD [address] [place] [phone] PCP - General Family Medicine 07/24/24 Monique Emmanuel MD [address] [place] [phone] Referring Physician Family Medicine 03/29/24 Monique Emmanuel MD [address] [place] [phone] Referring Physician Family Medicine 07/24/24 Jaime Camargo DO [address] [place] [address] Otolaryngology 07/24/24 Videotape Recording Engineer Relationship Specialty Start Date End Date Erich Garcia MD [address] [place] [phone] PCP - General Family Medicine 07/24/24 Monique Emmanuel MD [address] [place] [phone] Referring Physician Family Medicine 03/29/24 Monique Emmanuel MD [address] [place] [phone] Referring Physician Family Medicine 07/24/24 Jaime Camargo DO [address] [place] [address] Otolaryngology 07/24/24 Videotape Recording Engineer Relationship Specialty Start Date End Date Erich Garcia MD [address] [place] [phone] PCP - General Family Medicine 07/24/24 Monique Emmanuel MD [address] [place] [phone] Referring Physician Family Medicine 03/29/24 Monique Emmanuel MD [address] [place] [phone] Referring Physician Family Medicine 07/24/24 Jaime Camargo DO [address] [place] [address] Otolaryngology 07/24/24 Videotape Recording Engineer Relationship Specialty Start Date End Date Erich Garcia MD [address] [place] [phone] PCP - General Family Medicine 07/24/24 Monique Emmanuel MD [address] [place] [phone] Referring Physician Family Medicine 03/29/24 Monique Emmanuel MD [address] [place] [phone] Referring Physician Family Medicine 07/24/24 Jaime Camargo DO [address] [place] [address] Otolaryngology 07/24/24 Videotape Recording Engineer Relationship Specialty Start Date End Date Erich Garcia MD [address] [place] [phone] PCP - General Family Medicine 07/24/24 Monique Emmanuel MD [address] [place] [phone] Referring Physician Family Medicine 03/29/24 Monique Emmanuel MD [address] [place] [phone] Referring Physician Family Medicine 07/24/24 Jaime Camargo DO [address] [address] Otolaryngology 07/24/24 Videotape Recording Engineer Relationship Specialty Start Date End Date Erich Garcia MD [address] [place] [phone] PCP - General Family Medicine 07/24/24 Monique Emmanuel MD [address] [place] [phone] Referring Physician Family Medicine 03/29/24 Monique Emmanuel MD [address] [place] [phone] Referring Physician Family Medicine 07/24/24 Jaime Camargo DO [address] [place] [address] Otolaryngology 07/24/24 Goals (unrecognized section and content) Goals may [...] BE BASED ON THE PRIMARY CLINICAL RECORDS. [facility]. provides no warranty or guarantee of the accuracy or completeness of information in this document.
[2024-10-13 09:41] LABS: Estimated Average Glucose 143 mg/dL; Glycohemoglobin A1C 6.6 % (4.5-6.2)
== END 2024-10-13 08:41 | disposition home or self-care (01) ==
LOC: LAB 08:41
PROVIDERS: PCP Nurse Practitioner Family; Visit Provider Nurse Practitioner Family
DX: E11.65 Type 2 diabetes mellitus with hyperglycemia (principal)
CPT/HCPCS: 36415; 83036

== ENCOUNTER 2024-10-16 09:32 | Outpatient (OUT) | payer BC, SELFPAY ==
--- NOTE | 2024-10-16 09:45 | MR_ITS ---
The [address] [address] Patient Name: NOEL ROCHE MRN: [id number] date: 1990 Sex: F Assigned Patient Location: MRI Current Patient Location: MRI Accession/Order Number: [id number] Exam Date: 10/16/2024 09:54 Report Date: 10/18/2024 11:04 At the request of: TIARA AVELAR Procedure: MR foot RT wo con EXAM: MR foot RT wo con HISTORY: Pain and swelling in the right foot. Evaluate for stress fracture. COMPARISON: Right foot x-rays from 03/14/2024. TECHNIQUE: Multiplanar and multisequence imaging of the right foot was performed without contrast. FINDINGS: No acute fracture or dislocation is evident. No metatarsal stress fracture is identified. Motion artifact mildly degrades evaluation on this study. The visualized distal tibia and fibula appear intact on the edge of the [id number] of the sagittal images. There is no OCD lesion involving the talar dome. There is an accessory navicular bone along the posteromedial aspect of the navicular measuring approximately 1.8 x 1.3 cm. There is mild bone marrow edema in the accessory navicular and adjacent medial aspect of the navicular bone suspicious for adjacent stress response. The tarsometatarsal alignment is anatomic. No focal tear of the Lisfranc ligament is identified. There is a bone island in the posterior superior aspect of the calcaneus and in the anterior aspect of the talus. There appears to be mild diffuse joint space narrowing in the midfoot and subtalar joint. No Achilles tendon tear is evident. The peroneal tendons appear intact. There is mild thickening and intermediate signal of the posterior tibialis tendon near the navicular attachment site consistent with moderate tendinopathy and fraying with possible low-grade partial thickness tearing in this area. There is no cystic or solid mass in the region of the tarsal tunnel. There is no acute abnormality involving the plantar fascia. There is a small plantar calcaneal spur. MR/MR foot RT wo con IMPRESSION: 1. There is an accessory navicular bone along the posteromedial aspect of the navicular with mild bone marrow edema in the accessory navicular and adjacent medial aspect of the navicular bone suspicious for mild adjacent stress response. 2. No acute fracture. No metatarsal stress fracture is evident. 3. There is moderate tendinopathy with fraying and possible low-grade partial thickness tearing of the posterior tibialis tendon near the navicular attachment site. 4. Mild diffuse degenerative change involves the midfoot and subtalar joint. Electronically authenticated by: LUPE DARDEN Date: 10/18/2024 11:04
--- OUTSIDE RECORDS SUMMARY | 2024-10-16 09:51 | XMS_ITS | CCD ---
Author Organization [facility] Care Team Providers Care Language Specialist Name Role Phone Monique Dudley Unavailable MONIQUE EMMANUEL Attending Unavailable LIEN, MONIQUE Primary Care Unavailable LIEN, MONIQUE Admitting Unavailable LIEN, MONIQUE Admitting Unavailable LIEN, MONIQUE Attending Unavailable LIEN, MONIQUE Consulting Unavailable LIEN, MONIQUE Primary Care Unavailable LIEN, MONIQUE Admitting Unavailable LIEN, MONIQUE Attending Unavailable LIEN, MONIQUE Consulting Unavailable LINE, MONIQUE Primary Care Unavailable LIEN, MONIQUE Primary [...] Consulting Unavailsandra Dudley NP-C Monique Attending Provider [phone] LORI Emmanuel Primary Care Provider MONIQUE EMMANUEL Primary Care Physician [phone] Pato Koehler Referring Unavailable Pato Koehler Attending Unavailable Pato Koehler Admitting Unavailable SHITAL Koehler Attending Provider [phone] Monique Emmanuel Primary Care Unavailable Pato Koehler [...] Unavailable Erich Garcia MD Primary Care Provider Jaime Camargo DO Unavailable Rodo, DPM Pato [...] Facility (1 source) Egg protein Drug allergy [facility] Other (1 source) Sulf-10 Drug allergy [facility] Other (1 source) Sulfonamides (Antibiotic) Drug allergy (disorder) 3 [facility] (4 sources) Sulfonamides (Antibiotic); Translations: [Sulfa (Sulfonamide Antibiotics)] Allergy to substance 4 [facility] (4 sources) Egg Derived; Translations: [Egg Derived] Allergy to substance 4 [facility] (5 sources) Sulfonamides (Antibiotic); Translations: [sulfa drugs] Drug allergy [facility] (12 sources) Sulfonamides (Antibiotic) Drug Allergy 4 Rash, Hives [facility] Medications Current Medications Medication Drug Class(es) Dates Sig (Normalized) Sig (Original) acetaminophen 325 mg / HYDROcodone bitartrate 5 mg oral tablet (2 sources) Opioid Agonist Start: 08-30-2024 End: 09-04-2024 take 1 tablet by mouth every eight hours as needed for pain HYDROcodone-acetamin ophen ([place]) 5-325 MG tablet Indications: Pain Take 1 [...] day at the same time 03/12/2024 Active [facility] (3 sources) Start: 02-27-2024 [facility] Slin g Active 0 .Route 1 February [...] Surgical Pathology Reporton 09-12-2024 Surgical Pathology Report [address] [place] [address]- Surgical Pathology Report Collected Date/Time: 09/05/2024 08:32 [...] DIAGNOSIS. Addition of clinical information only. Normal [facility] Comment on above: Performed By: #### 4 [id number] #### [facility] [address] [place] [address] Surgical Pathology Reporton 09-11-2024 Surgical Pathology Report [address] [place] [address]- Surgical Pathology Report Collected Date/Time: 09/05/2024 08:32 [...] or cytologic atypia is identified. (Electronic Signature) Bneito Dupree MD PhD 09/11/2024 15:59 Clinical Information [...] examination performed unless gross only specified. Normal [facility] Comment on above: Performed By: #### 4 [id number] #### [facility] [address] [place] [address] Basic Metabolic Panelon 04-28 Creatinine Clr Calc Pharmacy 161.75 Normal [facility] Comment on above: Result Comment: PERF ORMED BY: [place] [address] PATHOLOGIST ENGINEER PROCESS SIMEON BIGGS M.D. Performed By: #### B MP #### [place] [id number] [place] GFR/1.73 sq M.predicted MDRD (S/P/Bld) [Vol rate/Area] mL/min/{1.73_m2} Normal [facility] Comment on above: Performed By: #### B MP #### [place] [id number] [place] Calcium [Mass/volume] in Ser um or PlasmaOrdered By: Melvin Ruano on 05-16-2024 Calcium [Mass/Vol] 8.8 mg/dL Normal 8.6-10.3 [facility] Comment on above: Performed By: #### B MP #### [place] [id number] [place] Capillary blood glucose jaswinder urement by glucometer (mass/volume)Ordered By: Pato Koehler on 05-16-2024 Glucose [Mass/Vol] 106 mg/dL Normal [facility] Comment on above: Random Glucose Refer ence Range is dependent on time and content of last meal. Glucose of more than 200 mg/dL in a nonstressed, ambulatory subject supports the diagnosis of Diabetes Mellitus. Result Comment: [place] om Glucose Reference Range is dependent on time and content of last meal. Glucose of more than 200 mg/dL in a nonstressed, ambulatory subject supports the diagnosis of Diabetes Mellitus. Performed By: #### G LULS #### Point of Care testing , Carbon dioxide, total [Moles /volume] in Serum or PlasmaOrdered By: Melvin Ruano on 05-16-2024 CO2 [Moles/Vol] 27.3 mmol/L Normal 21.0-31.0 [facility] Comment on above: Performed By: #### B MP #### [facility] [address] [place] [address] [place] Chloride [Moles/volume] in S nikkie or PlasmaOrdered By: Melvin Ruano on 05-16-2024 Chloride [Moles/Vol] 105 mmol/L Normal 98-107 [facility] Comment on above: Performed By: #### B MP #### [facility] [address] Creatinine [Mass/volume] in Serum or PlasmaOrdered By: Melvin Ruano on 05-16-2024 Creatinine [Mass/Vol] 0.66 mg/dL Normal 0.60-1.20 [facility] Comment on above: Performed By: #### B MP #### [facility] [address] Glucose Poct Glucometerson 0 05-16-2024 Commemt1 Glu2: Cleaned Meter Normal [facility] Comment on above: Result Comment: PERF ORMED BY: [place] [address] PATHOLOGIST ENGINEER PROCESS SIMEON BIGGS M.D. Performed By: #### G LULS #### Point of Care testing , Glucose [Mass/volume] in Ser um or PlasmaOrdered By: Melvin Ruano on 05-16-2024 Glucose [Mass/Vol] 107 mg/dL High 70-100 [facility] Comment on above: ADA recommended refe rence rangeRandom Glucose Reference Range is dependent on time and content of last meal. Glucose of more than 200 mg/dL in a nonstressed, ambulatory subject supports the diagnosis of Diabetes Mellitus. Result Comment: [place] om Glucose Reference Range is dependent on time and content of last meal. Glucose of more than 200 mg/dL in a nonstressed, ambulatory subject supports the diagnosis of Diabetes Mellitus. ADA recommended reference range Performed By: #### B MP #### [facility] [address] [place] [address] HCG ( test) IA.rapi d Ql (U)Ordered By: Melvin Ruano on 05-16-2024 HCG ( test) Ql (U) Negative [facility] HCG,Urineon 05-16-2024 Beta HCG ( test) Ql (U) Negative Normal [facility] Comment on above: Result Comment: PERF ORMED BY: [place] [address] PATHOLOGIST ENGINEER PROCESS SIMEON BIGGS M.D. Performed By: #### U HCG #### [facility] [address] [place] [address] Jason 05-16-2024 L Specimen: [id number] Received: 05/16/24 Status: KESHA Romo Num: [id number] Spec Type: Surgical Subm Dr: Pato Koehler DPM Tissues: A Bone Fragments - Other than Path Fracture (ACCESSORY BONE LT FOOT) Procedures: HE, Gross/Micro L3, Decalcification Age/ Patient Sex Location Account Attending Physician Kyung Paul 33/F [place] [id number] Pato Koehler DPM SPEC NUM: [id number] RECD: 05/16/24 STATUS: KESHA ROMO NUM: [id number] BRUNO: 05/16/24- SUBM DR: Pato Koehler DPM [...] areas of necrosis or cysts are present. Ice Cream Machine Operator sections are submitted following decalcification in A1. CPT Codes 86147, 98926 Specimen: [id number] Received: 05/16/24-1256 Status: KESHA Romo Num: [id number] Spec Type: Surgical Subm Dr: Pato Koehler DPM Tissues: A Bone Fragments - Other than Path Fracture (ACCESSORY BONE LT FOOT) Procedures: HE, Gross/Micro L3, Decalcification Patient: Kyung Paul [id number] (Continued) Signed (signature on file) Marco-Lukasz Dupree MD 05/19/24 1640 Normal [facility] No Panel InformationOrdered By: Pato Koehler on 05-16-2024 Bedside Glucose Comment Glu2: cleaned meter [facility] No Panel InformationOrdered By: Melvin Ruano on 05-16-2024 Estimated GFR (CKD-EPI) > 60.0 mL/Min [facility] Creatinine Clearance (Chem 161.75 [facility] Potassium [Moles/volume] in Serum or PlasmaOrdered By: Melvin Ruano on 05-16-2024 Potassium [Moles/Vol] 3.8 mmol/L Normal 3.5-5.1 [facility] Comment on above: Performed By: #### B MP #### [facility] [address] [place] [address] Serum or plasma anion gap de terminationOrdered By: Melvin Ruano on 05-16-2024 Anion gap [Moles/Vol] 9.5 mmol/L Normal 6.0-15.0 [facility] Comment on above: Performed By: #### B MP #### [facility] [address] [place] [address] Sodium [Moles/volume] in Ser um or PlasmaOrdered By: Melvin Ruano on 05-16-2024 Sodium [Moles/Vol] 138 mmol/L Normal 136-145 [facility] Comment on above: Performed By: #### B MP #### [facility] [address] Urea nitrogen [Mass/volume] in Serum or PlasmaOrdered By: Melvin Ruano on 05-16-2024 Urea nitrogen [Mass/Vol] 17 mg/dL Normal 7-25 [facility] Comment on above: Performed By: #### B MP #### [facility] [address] XR foot LT 2Von 05-16-2024 XR foot LT 2V [facility] [place] [address] [place] [address] XRay Report Signed Patient: Kyung Paul MR#: [id number] : 1990 Acct:[id number] Age/Sex: 33 / F ADM Date: 05/16/24 Loc: [place] Room: Type: [facility] Attending Dr: Pato Koehler DPM Copies to: [...] Leisa Adames M.D.05/16/2024 3:20 PM Dictation Location: [place] [address] Transcribed By: [facility] 05/16/24 1520 Dictated By: Leisa Adames MD 05/16/24 1515 Signed By: 05/16/24 1520 Normal [facility] CBC w/ Auto Diffon 4 Basophils/100 WBC (Bld) 0.5 % Normal 0.0-2.0 [facility] Comment on above: Performed By: #### 2 [id number] #### [facility] [address] [place] [address] Basophils/Leukocytes Auto (Bld) [Pure # fraction] 0.1 E9/L Normal 0.0-0.2 [facility] Comment on above: Performed By: #### 2 [id number] #### [facility] [address] [place] [address] Eosinophils (Bld) [#/Vol] 0.3 E9/L Normal 0.0-0.5 [facility] Comment on above: Performed By: #### 2 [id number] #### [facility] [address] [place] [address] Eosinophils/100 WBC (Bld) 2.9 % Normal 0.0-8.0 [facility] Comment on above: Performed By: #### 2 [id number] #### [facility] [address] [place] [address] Erythrocyte distribution width (RBC) [Ratio] 15.6 % High 10.9-14.2 [facility] Comment on above: Performed By: #### 2 [id number] #### [facility] [address] [place] [address] Hematocrit (Bld) [Volume fraction] 39.9 % Normal 34.0-46.0 [facility] Comment on above: Performed By: #### 2 [id number] #### [facility] [address] [place] [address] Hemoglobin (Bld) [Mass/Vol] 12.8 g/dL Normal 12.0-16.0 [facility] Comment on above: Performed By: #### 2 [id number] #### [facility] [address] [place] [address] Lymphocytes (Bld) [#/Vol] 2.3 E9/L Normal 1.0-4.0 [facility] Comment on above: Performed By: #### 2 [id number] #### [facility] [address] [place] [address] Lymphocytes/100 WBC (Bld) 20.9 % Normal 14.0-50.0 [facility] Comment on above: Performed By: #### 2 [id number] #### [facility] [address] [place] [address] MCH (RBC) [Entitic mass] 25.4 pg Low 27.0-34.0 [facility] Comment on above: Performed By: #### 2 [id number] #### [facility] [address] [place] [address] MCHC (RBC) [Mass/Vol] 32.2 g/dL Normal 31.4-36.0 [facility] Comment on above: Performed By: #### 2 [id number] #### [facility] [address] [place] [address] MCV (RBC) [Entitic vol] 79.0 fL Low 80.0-100.0 [facility] Comment on above: Performed By: #### 2 [id number] #### [facility] [address] [place] [address] Monocytes (Bld) [#/Vol] 0.7 E9/L Normal 0.2-1.0 [facility] Comment on above: Performed By: #### 2 400042 #### [facility] [address] [place] [address] Neutrophils (Bld) [#/Vol] 7.7 E9/L High 2.0-7.5 [facility] Comment on above: Performed By: #### 2 [id number] #### [facility] [address] [place] [address] Neutrophils/100 WBC (Bld) 69.3 % Normal 36.0-75.0 [facility] Comment on above: Performed By: #### 2 [id number] #### [facility] [address] [place] [address] Platelet mean volume (Bld) [Entitic vol] 8.3 fL Normal 6.4-10.8 [facility] Comment on above: Performed By: #### 2 [id number] #### [facility] [address] [place] [address] Platelets (Bld) [#/Vol] 346.0 E9/L Normal 150.0-500.0 [facility] Comment on above: Performed By: #### 2 [id number] #### [facility] [address] [place] [address] RBC (Bld) [#/Vol] 5.1 E12/L Normal 4.3-5.9 [facility] Comment on above: Performed By: #### 2 [id number] #### [facility] [address] [place] [address] WBC corrected for nucl RBC Auto (Bld) [#/Vol] 11.1 E9/L High 4.0-11.0 [facility] Comment on above: Performed By: #### 2 [id number] #### [facility] [address] [place] [address] Consent for Treatmenton 03-29 Consent for Treatment [id number] #1.00TIFF Normal [facility] HEMATOLOGYOrdered By: SYSTEM SYSTEM on 04-25-2024 [...] Remisol Heme Physician Orderon 04-18-2024 Physician Order [id number] #1.00TIFF Normal [facility] XR shoulder RT min 2V*on XR shoulder RT min 2V* [address] [address] XRay Report Signed Patient: Kyung Paul MR#: [id number] : 1990 Acct:[id number] Age/Sex: 33 / F ADM Date: 02/27/24 Loc: [facility] Room: Type: [facility] Attending Dr: Monique SANDOVAL Copies to: LORI [...] Leisa Adames M.D.02/27/2024 6:14 PM Dictation Location: [place] [address] Transcribed By: [facility] 02/27/241813 Dictated By: Leisa Adames MD 02/27/241812 Signed By: 02/27/241813 Normal [facility] GLYCOHEMOGLOBIN A1Con 2022 ADA RECOMMENDATION SEE BELOW Normal [facility] Comment on above: Result Comment: ADA RECOMMENDED LIMIT 4.0 - 6.0 ADA THERAPEUTIC TARGET < 7.0 ACTION SUGGESTED > 7.0 Performed By: #### A 1C #### [facility] [address] [place] [address] [address] Benito Dupree Glucose [Mass/Vol] 105 mg/dL Normal [facility] Comment on above: Performed By: #### A 1C #### [facility] [address] [place] [address] [address] Benito Dupree HbA1c (Bld) [Mass fraction] 5.3 % Normal 4.5-6.2 [facility] Comment on above: Performed By: #### A 1C #### [facility] [address] [place] [address] [address] Benito Dupree Covid-19 PCR (CVDTB)on SARS-CoV-2 (COVID-19) RNA MUKUND+probe Ql (Unsp spec) Not detected Normal NOT DETECTED [facility] Comment on above: Result Comment: This test is not yet approved or cleared by the [place] FDA. When there are no FDA-approved or cleared tests available, and other criteria are met, FDA can make tests available under an emergency access mechanism called an Emergency Use Authorization (EUA). The EUA for this test is supported by the Marine Consultant of Health and Human Service's (HHS's) declaration [...] SARS-CoV-2. Performed By: #### C VDTBH #### [facility] [address] [place] [address] Dr. Benito Dupree INFLUENZA A [facility] B [facility] BEL[facility] Normal [facility] Comment on above: Result Comment: Nega tive for Flu A protein angiten. Infection due to Flu A cannot be ruled out. Flu A angiten in the sample may be below the detection limit of the test. Performed By: #### I NFLUAB #### [facility] [address] [place] [address] Dr. Benito Dupree INFLUBNEG SEE BELOW Normal [facility] Comment on above: Result Comment: Nega tive for Flu B protein antigen. Infection due to Flu B cannot be ruled out. Flu B antigen in the sample may be below the detection limit of the test. Performed By: #### I NFLUAB #### [facility] [address] [place] [address] Dr. Benito Dupree INFLUENZA A AG Negative Normal NEGATIVE SEE COMMENT [facility] Comment on above: Performed By: #### I NFLUAB #### [facility] [address] [place] [address] [address] Benito Dupree INFLUENZA B AG Negative Normal NEGATIVE SEE COMMENT [facility] Comment on above: Performed By: #### I NFLUAB #### [facility] [address] [place] [address] Dr. Benito Dupree GLYCOHEMOGLOBIN A1Con 2021 ADA RECOMMENDATION SEE BELOW Normal [facility] Comment on above: Result Comment: ADA RECOMMENDED LIMIT 4.0 - 6.0 ADA THERAPEUTIC TARGET < 7.0 ACTION SUGGESTED > 7.0 Performed By: #### A 1C #### [facility] [address] [place] [address] [address] Benito Dupree Glucose [Mass/Vol] 143 mg/dL Normal [facility] Comment on above: Performed By: #### A 1C #### [facility] [address] [place] [address] Dr. Benito Dupree HbA1c (Bld) [Mass fraction] 6.6 % Critically high 4.5-6.2 [facility] Comment on above: Performed By: #### A 1C #### [facility] [address] [place] [address] Dr. Benito Dupree LIPID PROFILEon 11-15-2022 CHOL-HDL RATIO NORM SEE BELOW Normal [facility] Comment on above: Result Comment: 3.3 - 4.4 LOW RISK 4.4 - 7.1 AVERAGE RISK 7.1 - 11.0 MODERATE RISK >11.0 HIGH RISK Performed By: #### I NFLUAB #### [facility] [address] [place] [address] Dr. Benito Dupree Cholesterol [Mass/Vol] 154 mg/dL Normal <=200 Th [facility] Comment on above: Performed By: #### I NFLUAB #### [facility] [address] [place] [address] Dr. Benito Dupree Cholesterol in HDL [Mass/Vol] 29 mg/dL Critically low 40-60 [facility] Comment on above: Performed By: #### I NFLUAB #### [facility] [address] [place] [address] Dr. Benito Dupree Cholesterol in LDL [Mass/Vol] 98.2 mg/dL Normal [facility] Comment on above: Performed By: #### I NFLUAB #### [facility] [address] [place] [address] [address] Benito Dupree Cholesterol.total/Lisandra sterol in HDL [Mass ratio] 5.3 {ratio} Normal [facility] Comment on above: Performed By: #### I NFLUAB #### [facility] [address] [place] [address] [address] Benito Dupree HDL NORMAL > or = 60 mg/dl - LOW CARDIOVASCULAR RISK <40 mg/dl - HIGH CARDIOVASCULAR RISK Normal [facility] Comment on above: Performed By: #### I NFLUAB #### [facility] [address] [place] [address] [address] Benito Dupree LDL CALC NORMAL SEE BELOW Normal [facility] Comment on above: Result Comment: <100 mg/dl OPTIMAL 100 - 129 mg/dl NEAR OR ABOVE OPTIMAL 130 - 159 mg/dl BORDERLINE HIGH 160 - 189 mg/dl HIGH >190 mg/dl VERY HIGH Performed By: #### I NFLUAB #### [facility] [address] [place] [address] [address] Benito Dupree Triglyceride [Mass/Vol] 134 mg/dL Normal <=150 T [facility] Comment on above: Performed By: #### I NFLUAB #### [facility] [address] [place] [address] [address] Benito Dupree VLDL CALC 26.8 mg/dL Normal [facility] Comment on above: Performed By: #### I NFLUAB #### [facility] [address] [place] [address] [address] Benito Dupree INSULINon 08-19-2022 Insulin 24.3 uIU/mL Normal 2.6-24.9 [facility] Comment on above: Performed By: #### I NFLUAB #### [facility] [address] [place] [address] [address] Benito Dupree T4, T3U, FTI LABCORPon 08-19 Free Thyroxine Index 2.6 Normal 1.2-4.9 [facility] Comment on above: Performed By: #### T HYLC #### [facility] [address] [place] [address] Dr. Benito Dupree T3 Uptake 29 % Normal 24-39 [facility] Comment on above: Performed By: #### T HYLC #### [facility] [address] [place] [address] Dr. Benito Dupree T4 [Mass/Vol] 8.8 ug/dL Normal 4.5-12.0 [facility] Comment on above: Performed By: #### T HYLC #### [facility] [address] [place] [address] Dr. Benito Dupree CBC AUTO DIFFon 08-18-2022 BASO # 0.1 103/ul Normal 0.0-0.1 [facility] Comment on above: Performed By: #### I NFLUAB #### [facility] [address] [place] [address] Dr. Benito Dupree Basophils/100 WBC (Bld) 0.8 % Normal 0.2-2.0 [facility] Comment on above: Performed By: #### I NFLUAB #### [facility] [address] [place] [address] Dr. Benito Dupree EO # 0.3 103/ul Normal 0.0-0.7 [facility] Comment on above: Performed By: #### I NFLUAB #### [facility] [address] [place] [address] Dr. Benito Dupree Eosinophils/100 WBC (Bld) 2.8 % Normal 0.9-7.0 [facility] Comment on above: Performed By: #### I NFLUAB #### [facility] [address] [place] [address] Dr. Benito Dupree Erythrocyte distribution width (RBC) [Ratio] 15.4 % Critically high 11.0-15.0 [facility] Comment on above: Performed By: #### I NFLUAB #### [facility] [address] [place] [address] Dr. Benito Dupree Hematocrit (Bld) [Volume fraction] 43.7 % Normal 36.0-48.0 [facility] Comment on above: Performed By: #### I NFLUAB #### [facility] [address] [place] [address] Dr. Benito Dupree Hemoglobin (Bld) [Mass/Vol] 14.2 g/dL Normal 12.0-16.0 [facility] Comment on above: Performed By: #### I NFLUAB #### [facility] [address] [place] [address] Dr. Benito Dupree IG # 0.08 10e3/ul Critically high 0.00-0.03 [facility] Comment on above: Performed By: #### I NFLUAB #### [facility] [address] [place] [address] Dr. Benito Dupree IG % 0.9 % Critically high 0.0-0.5 [facility] Comment on above: Performed By: #### I NFLUAB #### [facility] [address] [place] [address] Dr. Benito Dupree LYMPH # 2.3 103/ul Normal 1.2-3.8 [facility] Comment on above: Performed By: #### I NFLUAB #### [facility] [address] [place] [address] Dr. Benito Dupree Lymphocytes/100 WBC (Bld) 24.3 % Normal 20.5-60.0 [facility] Comment on above: Performed By: #### I NFLUAB #### [facility] [address] [place] [address] Dr. Benito Dupree MANUAL DIFF REQ NO Normal [facility] Comment on above: Performed By: #### I NFLUAB #### [facility] [address] [place] [address] Dr. Benito Dupree MCH (RBC) [Entitic mass] 26.1 pg Critically low 26.7-34.0 [facility] Comment on above: Performed By: #### I NFLUAB #### [facility] [address] [place] [address] Dr. Benito Dupree MCHC (RBC) [Mass/Vol] 32.5 g/dL Normal 29.9-35.2 [facility] Comment on above: Performed By: #### I NFLUAB #### [facility] [address] [place] [address] Dr. Benito Dupree MCV (RBC) [Entitic vol] 80.2 fL Critically low 81.0-99. 0 [facility] Comment on above: Performed By: #### I NFLUAB #### [facility] [address] [place] [address] Dr. Benito Dupree MONO # 0.5 103/ul Normal 0.3-0.8 [facility] Comment on above: Performed By: #### I NFLUAB #### [facility] [address] [place] [address] Dr. Benito Dupree Monocytes/100 WBC (Bld) 5.2 % Normal 1.7-12.0 [facility] Comment on above: Performed By: #### I NFLUAB #### [facility] [address] [place] [address] Dr. Benito Dupree NEUT # 6.1 103/ul Normal 1.4-6.5 [facility] Comment on above: Performed By: #### I NFLUAB #### [facility] [address] [place] [address] Dr. Benito Dupree Neutrophils/100 WBC (Bld) 66.0 % Normal 43.0-75.0 [facility] Comment on above: Performed By: #### I NFLUAB #### [facility] [address] [place] [address] Dr. Benito Dupree Platelet mean volume (Bld) [Entitic vol] 9.9 fL Normal 9.5-13.5 [facility] Comment on above: Performed By: #### I NFLUAB #### [facility] [address] [place] [address] Dr. Benito Dupree PLT 291 103/ul Normal 150-450 [facility] Comment on above: Performed By: #### I NFLUAB #### [facility] [address] [place], [place] [id number] Dr. Benito Dupree RBC 5.45 106/ul Critically high 4.20-5.40 [facility] Comment on above: Performed By: #### I NFLUAB #### [facility] [address] [address] [address] Benito Dupree WBC 9.3 103/ul Normal 4.0-11.0 [facility] Comment on above: Performed By: #### I NFLUAB #### [facility] [address] [address] [address] Benito Dupree DIRECT LDLon 08-18-2022 Cholesterol in LDL [Mass/Vol] 50 mg/dL Normal [facility] Comment on above: Performed By: #### T HYLC #### [facility] [address] [place] [address] Dr. Benito Dupree DLDL NORMAL SEE BELOW Normal [facility] Comment on above: Result Comment: <100 mg/dl OPTIMAL 100 - 129 mg/dl NEAR OR ABOVE OPTIMAL 130 - 159 mg/dl BORDERLINE HIGH 160 - 189 mg/dl HIGH >190 mg/dl VERY HIGH Performed By: #### T HYLC #### [facility] [address] [place] [address] Dr. Benito Dupree GLYCOHEMOGLOBIN A1Con 2021 ADA RECOMMENDATION SEE BELOW Normal [facility] Comment on above: Result Comment: ADA RECOMMENDED LIMIT 4.0 - 6.0 ADA THERAPEUTIC TARGET < 7.0 ACTION SUGGESTED > 7.0 Performed By: #### A 1C #### [facility] [address] [place] [address] Dr. Benito Dupree Glucose [Mass/Vol] 332 mg/dL Normal [facility] Comment on above: Performed By: #### A 1C #### [facility] [address] [place] [address] Dr. Benito Dupree HbA1c (Bld) [Mass fraction] 13.2 % Critically high 4.5-6.2 [facility] Comment on above: Performed By: #### A 1C #### [facility] [address] [place] [address] Dr. Benito Dupree IRONon 08-18-2022 Iron [Mass/Vol] 53.0 ug/dL Normal 50.0-170.0 [facility] Comment on above: Performed By: #### I NFLUAB #### [facility] [address] [address] [address] Benito Dupree LIPID PROFILEon 08-18-2022 CHOL-HDL RATIO NORM SEE BELOW Normal [facility] Comment on above: Result Comment: 3.3 - 4.4 LOW RISK 4.4 - 7.1 AVERAGE RISK 7.1 - 11.0 MODERATE RISK >11.0 HIGH RISK Performed By: #### T HYLC #### [facility] [address] [address] [address] Benito Dupree Cholesterol [Mass/Vol] 260 mg/dL Critically high <=200 [facility] Comment on above: Performed By: #### T HYLC #### [facility] [address] [address] [address] Benito Dupree Cholesterol in HDL [Mass/Vol] 23 mg/dL Critically low 40-60 [facility] Comment on above: Performed By: #### T HYLC #### [facility] [address] [address] [address] Benito Dupree Cholesterol.total/Lisandra sterol in HDL [Mass ratio] 11.3 {ratio} Normal [facility] Comment on above: Performed By: #### T HYLC #### [facility] [address] [address] [address] Benito Dupree HDL NORMAL > or = 60 mg/dl - LOW CARDIOVASCULAR RISK <40 mg/dl - HIGH CARDIOVASCULAR RISK Normal [facility] Comment on above: Performed By: #### T HYLC #### [facility] [address] [address] [address] Benito Dupree Triglyceride [Mass/Vol] 1711 mg/dL Critically high <=150 [facility] Comment on above: Performed By: #### T HYLC #### [facility] [address] [address] [address] Benito Dupree VLDL CALC 342.2 mg/dL Normal [facility] Comment on above: Performed By: #### T HYLC #### [facility] [address] [place] [address] Dr. Benito Dupree PROF 14(COMP METB)on 022 Albumin [Mass/Vol] 3.2 g/dL Critically low 3.4-5.0 [facility] Comment on above: Performed By: #### T HYLC #### [facility] [address] [address] [address] Benito Dupree Albumin/Globulin [Mass ratio] 0.7 {ratio} Normal [facility] Comment on above: Performed By: #### T HYLC #### [facility] [address] [place] [address] Dr. Benito Dupree ALP [Catalytic activity/Vol] 92 U/L Normal 46-116 [facility] Comment on above: Performed By: #### T HYLC #### [facility] [address] [place] [address] Dr. Benito Dupree ALT [Catalytic activity/Vol] 41 U/L Normal 14-59 [facility] Comment on above: Performed By: #### T HYLC #### [facility] [address] [place] [address] Dr. Benito Dupree Anion gap [Moles/Vol] 14.1 mmol/L Normal [facility] Comment on above: Performed By: #### T HYLC #### [facility] [address] [place] [address] Dr. Benito Dupree AST [Catalytic activity/Vol] 16 U/L Normal 15-37 [facility] Comment on above: Performed By: #### T HYLC #### [facility] [address] [place] [address] Dr. Benito Dupree Bilirubin [Mass/Vol] 0.9 mg/dL Normal 0.2-1.0 [facility] Comment on above: Performed By: #### T HYLC #### [facility] [address] [place] [address] Dr. Benito Dupree Calcium [Mass/Vol] 9.1 mg/dL Normal 8.5-10.1 [facility] Comment on above: Performed By: #### T HYLC #### [facility] [address] [address] [address] Benito Dupree Chloride [Moles/Vol] 97 mmol/L Critically low 98-107 [facility] Comment on above: Performed By: #### T HYLC #### [facility] [address] [address] [address] Benito Dupree CO2 [Moles/Vol] 24.9 mmol/L Normal 21.0-32.0 [facility] Comment on above: Performed By: #### T HYLC #### [facility] [address] [address] [address] Benito Dupree Creatinine [Mass/Vol] 0.67 mg/dL Normal 0.55-1.02 [facility] Comment on above: Performed By: #### T HYLC #### [facility] [address] [address] [address] Benito Dupree EGFR-AF PORTUGUESE >60 Normal >=60 [facility] Comment on above: Performed By: #### T HYLC #### [facility] [address] [address] [address] Benito Dupree EGFR-NON AF PORTUGUESE >60 Normal >=60 [facility] Comment on above: Performed By: #### T HYLC #### [facility] [address] [address] [address] Benito Dupree Globulin (S) [Mass/Vol] 4.6 g/dL Normal [facility] Comment on above: Performed By: #### T HYLC #### [facility] [address] [address] [address] Benito Dupree Glucose [Mass/Vol] 402 mg/dL Critically high 74-106 [facility] Comment on above: Performed By: #### T HYLC #### [facility] [address] [address] [address] Benito Dupree Potassium [Moles/Vol] 4.0 mmol/L Normal 3.5-5.1 [facility] Comment on above: Performed By: #### T HYLC #### [facility] [address] [place] [address] Dr. Benito Dupree Protein [Mass/Vol] 7.8 g/dL Normal 6.4-8.2 [facility] Comment on above: Performed By: #### T HYLC #### [facility] [address] [place] [address] Dr. Benito Dupree Sodium [Moles/Vol] 132 mmol/L Critically low 136-145 [facility] Comment on above: Performed By: #### T HYLC #### [facility] [address] [place] [address] Dr. Benito Dupree Urea nitrogen [Mass/Vol] 10.0 mg/dL Normal 7.0-18.0 [facility] Comment on above: Performed By: #### T HYLC #### [facility] [address] [place] [address] Dr. Benito Dupree Urea nitrogen/Creatinine [Mass ratio] 14.9 mg/mg Normal [facility] Comment on above: Performed By: #### T HYLC #### [facility] [address] [place] [address] Dr. Benito Dupree TSHon 08-18-2022 TSH 3.676 uIU/mL Normal 0.358-3.740 [facility] Comment on above: Performed By: #### T HYLC #### [facility] [address] [place] [address] Dr. Benito Dupree VITAMIN D 25 OHon 08-18-2022 VIT D 25-OH 13.9 ng/mL Normal [facility] Comment on above: Performed By: #### I NFLUAB #### [facility] [address] [place] [address] Dr. Benito Dupree VIT D RANGES SEE BELOW Normal [facility] Comment on above: Result Comment: <20 ng/mL Vit D deficient 20 - <30 ng/mL Vit D insufficient 30 - 100 ng/mL Vit D sufficient >100 ng/mL Potential Toxicity Performed By: #### I NFLUAB #### [facility] [address] [place] [address] Dr. Benito Dupree AMYLASEon 06-01-2022 Amylase [Catalytic activity/Vol] 29 U/L Normal 25-115 [facility] Comment on above: Performed By: #### I NFLUAB #### [facility] [address] [place] [address] Dr. Benito Dupree CBC AUTO DIFFon 06-01-2022 BASO # 0.1 103/ul Normal 0.0-0.1 [facility] Comment on above: Performed By: #### I NFLUAB #### [facility] [address] [place] [address] Dr. Benito Dupree Basophils/100 WBC (Bld) 0.5 % Normal 0.2-2.0 [facility] Comment on above: Performed By: #### I NFLUAB #### [facility] [address] [place] [address] Dr. Benito Dupree EO # 0.3 103/ul Normal 0.0-0.7 [facility] Comment on above: Performed By: #### I NFLUAB #### [facility] [address] [place] [address] Dr. Benito Dupree Eosinophils/100 WBC (Bld) 2.0 % Normal 0.9-7.0 [facility] Comment on above: Performed By: #### I NFLUAB #### [facility] [address] [place] [address] Dr. Benito Dupree Erythrocyte distribution width (RBC) [Ratio] 15.3 % Critically high 11.0-15.0 [facility] Comment on above: Performed By: #### I NFLUAB #### [facility] [address] [place] [address] Dr. Benito Dupree Hematocrit (Bld) [Volume fraction] 41.5 % Normal 36.0-48.0 [facility] Comment on above: Performed By: #### I NFLUAB #### [facility] [address] [place] [address] Dr. Benito Dupree Hemoglobin (Bld) [Mass/Vol] 12.7 g/dL Normal 12.0-16.0 [facility] Comment on above: Performed By: #### I NFLUAB #### [facility] [address] [address] [address] Benito Dupree IG # 0.06 10e3/ul Critically high 0.00-0.03 [facility] Comment on above: Performed By: #### I NFLUAB #### [facility] [address] [address] [address] Benito Dupree IG % 0.4 % Normal 0.0-0.5 [facility] Comment on above: Performed By: #### I NFLUAB #### [facility] [address] [address] [address] Benito Dupree LYMPH # 1.9 103/ul Normal 1.2-3.8 [facility] Comment on above: Performed By: #### I NFLUAB #### [facility] [address] [place] [address] Dr. Benito Dupree Lymphocytes/100 WBC (Bld) 13.9 % Critically low 20.5-60.0 [facility] Comment on above: Performed By: #### I NFLUAB #### [facility] [address] [place] [address] Dr. Benito Dupree MANUAL DIFF REQ NO Normal [facility] Comment on above: Performed By: #### I NFLUAB #### [facility] [address] [place] [address] Dr. Benito Dupree MCH (RBC) [Entitic mass] 24.7 pg Critically low 26.7-34.0 [facility] Comment on above: Performed By: #### I NFLUAB #### [facility] [address] [address] [address] Benito Dupree MCHC (RBC) [Mass/Vol] 30.6 g/dL Normal 29.9-35.2 [facility] Comment on above: Performed By: #### I NFLUAB #### [facility] [address] [place] [address] Dr. Benito Dupree MCV (RBC) [Entitic vol] 80.6 fL Critically low 81.0-99. 0 [facility] Comment on above: Performed By: #### I NFLUAB #### [facility] [address] [address] [address] Benito Dupree MONO # 0.5 103/ul Normal 0.3-0.8 [facility] Comment on above: Performed By: #### I NFLUAB #### [facility] [address] [place] [address] Dr. Benito Dupree Monocytes/100 WBC (Bld) 4.0 % Normal 1.7-12.0 [facility] Comment on above: Performed By: #### I NFLUAB #### [facility] [address] [place] [address] Dr. Benito Dupree NEUT # 10.6 103/ul Critically high 1.4-6.5 [facility] Comment on above: Performed By: #### I NFLUAB #### [facility] [address] [place] [address] Dr. Benito Dupree Neutrophils/100 WBC (Bld) 79.2 % Critically high 43.0-75.0 [facility] Comment on above: Performed By: #### I NFLUAB #### [facility] [address] [place] [address] Dr. Benito Dupree Platelet mean volume (Bld) [Entitic vol] 9.3 fL Critically low 9.5-13.5 [facility] Comment on above: Performed By: #### I NFLUAB #### [facility] [address] [place] [address] Dr. Benito Dupree PLT 391 103/ul Normal 150-450 [facility] Comment on above: Performed By: #### I NFLUAB #### [facility] [address] [place] [address] Dr. Benito Dupree RBC 5.15 106/ul Normal 4.20-5.40 [facility] Comment on above: Performed By: #### I NFLUAB #### [facility] [address] [place] [address] Dr. Benito Dupree WBC 13.4 103/ul Critically high 4.0-11.0 [facility] Comment on above: Performed By: #### I NFLUAB #### [facility] [address] [address] [address] ABD/PELV W CONon [...] WESTLEY JHA Date: 2022-06-01 14:59 Normal [facility] ER URINE PROFILEon 2 Bilirubin Ql (U) Negative Normal NEGATIVE [facility] Comment on above: Performed By: #### U MICRO, ERUR #### [facility] [address] [address] [address] Benito Dupree Clarity (U) SL CLOUDY Abnormal CLEAR [facility] Comment on above: Performed By: #### U MICRO, ERUR #### [facility] [address] [address] [address] Benito Dupree Color (U) YELLOW Normal YELLOW [facility] Comment on above: Performed By: #### U MICRO, ERUR #### [facility] [address] [address] [address] Benito BERG A micrscopic examination will be performed if indicated. Normal [facility] Comment on above: Performed By: #### U MICRO, ERUR #### [facility] [address] [address] [address] Benito Dupree Glucose Ql (U) Negative Normal NEGATIVE [facility] Comment on above: Performed By: #### U MICRO, ERUR #### [facility] [address] [address] [address] Benito Dupree Hemoglobin Ql (U) LARGE Abnormal NEGATIVE [facility] Comment on above: Performed By: #### U MICRO, ERUR #### [facility] [address] [address] [address] Benito Dupree Ketones Ql (U) Negative Normal NEGATIVE [facility] Comment on above: Performed By: #### U MICRO, ERUR #### [facility] [address] [address] [address] Benito Dupree LEUKOCYTES Negative Normal NEGATIVE [facility] Comment on above: Performed By: #### U MICRO, ERUR #### [facility] [address] [address] [address] Benito Dupree Nitrite Ql (U) Negative Normal NEGATIVE [facility] Comment on above: Performed By: #### U MICRO, ERUR #### [facility] [address] [address] [address] Benito Dupree pH (U) 5.5 [pH] Normal 5-9 [facility] Comment on above: Performed By: #### U MICRO, ERUR #### [facility] [address] [address] [address] Benito Dupree SPEC GRAVITY 1.010 Normal 1.005-<=1.02 5 [facility] Comment on above: Performed By: #### U MICRO, ERUR #### [facility] [address] [address] [address] Benito Dupree UA PROTEIN TRACE Normal NEGATIVE/ TRACE [facility] Comment on above: Performed By: #### U MICRO, ERUR #### [facility] [address] [address] [address] Benito Dupree UR MICRO IND INDICATED Normal [facility] Comment on above: Performed By: #### U MICRO, ERUR #### [facility] [address] [place] [address] Dr. Benito Dupree Urobilinogen Qn (U) 1.0 {Tuyet'U}/dL Normal 0.2 - 1. 0 [facility] Comment on above: Performed By: #### U MICRO, ERUR #### [facility] [address] [address] [address] Benito Dupree LACTATE/LACTIC ACIDon 2021 Lactate [Moles/Vol] 1.1 mmol/L Normal 0.4-1.9 [facility] Comment on above: Performed By: #### L ACT #### [facility] [address] [place] [address] Dr. Benito Dupree LIPASEon 06-01-2022 Lipase [Catalytic activity/Vol] 111.0 U/L Normal 73.0-393.0 [facility] Comment on above: Performed By: #### I NFLUAB #### [facility] [address] [place] [address] Dr. Benito Dupree PREG HCG QUALon 06-01-2022 , QUAL Negative Normal NEGATIVE [facility] Comment on above: Performed By: #### P REG #### [facility] [address] [place] [address] Dr. Benito Dupree PROF 14(COMP METB)on 022 Albumin [Mass/Vol] 3.6 g/dL Normal 3.4-5.0 [facility] Comment on above: Performed By: #### I NFLUAB #### [facility] [address] [place] [address] Dr. Benito Dupree Albumin/Globulin [Mass ratio] 0.7 {ratio} Normal [facility] Comment on above: Performed By: #### I NFLUAB #### [facility] [address] [address] [address] Benito Dupree ALP [Catalytic activity/Vol] 90 U/L Normal 46-116 [facility] Comment on above: Performed By: #### I NFLUAB #### [facility] [address] [address] [address] Benito Dupree ALT [Catalytic activity/Vol] 39 U/L Normal 14-59 [facility] Comment on above: Performed By: #### I NFLUAB #### [facility] [address] [address] [address] Benito Dupree Anion gap [Moles/Vol] 13.0 mmol/L Normal [facility] Comment on above: Performed By: #### I NFLUAB #### [facility] [address] [place] [address] Dr. Benito Dupree AST [Catalytic activity/Vol] 25 U/L Normal 15-37 [facility] Comment on above: Performed By: #### I NFLUAB #### [facility] [address] [place] [address] Dr. Benito Dupree Bilirubin [Mass/Vol] 1.1 mg/dL Critically high 0.2-1.0 [facility] Comment on above: Performed By: #### I NFLUAB #### [facility] [address] [place] [address] Dr. Benito Dupree Calcium [Mass/Vol] 9.4 mg/dL Normal 8.5-10.1 [facility] Comment on above: Performed By: #### I NFLUAB #### [facility] [address] [place] [address] Dr. Benito Dupree Chloride [Moles/Vol] 99 mmol/L Normal 98-107 [facility] Comment on above: Performed By: #### I NFLUAB #### [facility] [address] [address] [address] Benito Dupree CO2 [Moles/Vol] 27.3 mmol/L Normal 21.0-32.0 [facility] Comment on above: Performed By: #### I NFLUAB #### [facility] [address] [address] [address] Benito Dupree Creatinine [Mass/Vol] 0.87 mg/dL Normal 0.55-1.02 [facility] Comment on above: Performed By: #### I NFLUAB #### [facility] [address] [address] [address] Benito Dupree EGFR-AF PORTUGUESE >60 Normal >=60 [facility] Comment on above: Performed By: #### I NFLUAB #### [facility] [address] [address] [address] Benito Dupree EGFR-NON AF PORTUGUESE >60 Normal >=60 [facility] Comment on above: Performed By: #### I NFLUAB #### [facility] [address] [address] [address] Benito Dupree Globulin (S) [Mass/Vol] 4.8 g/dL Normal [facility] Comment on above: Performed By: #### I NFLUAB #### [facility] [address] [address] [address] Benito Dupree Glucose [Mass/Vol] 218 mg/dL Critically high 74-106 [facility] Comment on above: Performed By: #### I NFLUAB #### [facility] [address] [place] [address] Dr. Benito Dupree Potassium [Moles/Vol] 4.1 mmol/L Normal 3.5-5.1 [facility] Comment on above: Performed By: #### I NFLUAB #### [facility] [address] [place] [address] Dr. Benito Dupree Protein [Mass/Vol] 8.4 g/dL Critically high 6.4-8.2 [facility] Comment on above: Performed By: #### I NFLUAB #### [facility] [address] [place] [address] Dr. Benito Dupree Sodium [Moles/Vol] 135 mmol/L Critically low 136-145 [facility] Comment on above: Performed By: #### I NFLUAB #### [facility] [address] [place] [address] Dr. Benito Dupree Urea nitrogen [Mass/Vol] 15.0 mg/dL Normal 7.0-18.0 [facility] Comment on above: Performed By: #### I NFLUAB #### [facility] [address] [place] [address] Dr. Benito Dupree Urea nitrogen/Creatinine [Mass ratio] 17.2 mg/mg Normal [facility] Comment on above: Performed By: #### I NFLUAB #### [facility] [address] [address] [address] Benito Dupree URINE MICROSCOPIC ONLYon BACTERIA TRACE Abnormal NONE SEEN [facility] Comment on above: Performed By: #### U MICRO, ERUR #### [facility] [address] [place] [address] Dr. Benito Dupree Bacteria identified Cx Nom (U) NOT INDICATED Normal [facility] Comment on above: Performed By: #### U MICRO, ERUR #### [facility] [address] [place] [address] Dr. Benito Dupree CAST NONE SEEN Normal NONE SEEN [facility] Comment on above: Performed By: #### U MICRO, ERUR #### [facility] [address] [place] [address] Dr. Benito Dupree Crystals LM Nom (Urine sed) NONE SEEN Normal NONE SEEN [facility] Comment on above: Performed By: #### U MICRO, ERUR #### [facility] [address] [place] [address] Dr. Benito Dupree Epithelial cells LM Ql (Urine sed) MODERATE Abnormal NONE SEEN /RARE [facility] Comment on above: Performed By: #### U MICRO, ERUR #### [facility] [address] [address] [address] Benito Dupree MUCOUS TRACE Abnormal NONE SEEN [facility] Comment on above: Performed By: #### U MICRO, ERUR #### [facility] [address] [place] [address] Dr. Benito Dupree RBC 2-5 Abnormal 0-2 [facility] Comment on above: Performed By: #### U MICRO, ERUR #### [facility] [address] [address] [address] Benito Dupree WBC 0-2 Abnormal NONE SEEN [facility] Comment on above: Performed By: #### U MICRO, ERUR #### [facility] [address] [address] [address] Benito Dupree XR hand RT min 3V*on 022 XR hand RT min 3V* [facility] [employer] Other XR hand RT min 3V* [facility] [employer] Other XR hand RT min 3V* [address] [place] [address] [employer] Other XR hand RT min 3V* [place] [address] [employer] Other XR hand RT min 3V* XRay Report [employer] Other XR hand RT min 3V* Signed [employer] Other XR hand RT min 3V* Patient: Kyung Paul MR#: [id number] [employer] Other XR hand RT min 3V* : 1990 Acct:[id number] [employer] Other XR hand RT min 3V* Age/Sex: 31 / F ADM Date: 03/22/22 [employer] Other XR hand RT min 3V* Loc: XDUCLY Room: Type: REG CLI [employer] Other XR hand RT min 3V* Attending Dr: Monique SANDOVAL [employer] Other XR hand RT min 3V* Ordering Provider: LORI Dias [employer] Other XR hand RT min 3V* Date of Service: 03/22/22 [employer] Other XR hand RT min 3V* XR/XR hand RT min 3V*: Finger pain, right [employer] Other XR hand RT min 3V* Copies to: JOSEMANUEL DiasC [employer] Other XR hand RT min 3V* 3 viewsRIGHT hand plain film [employer] Other XR hand RT min 3V* COMPARISON:None [facility] [employer] Other XR hand RT min 3V* HISTORY:Fell going upstairs. RIGHT ring finger injury. [employer] Other XR hand RT min 3V* No fracture, dislocation or focal soft tissue abnormality seen. [employer] Other XR hand RT min 3V* XR/XR hand RT min 3V* [employer] Other XR hand RT min 3V* IMPRESSION:No acute findings [employer] Other XR hand RT min 3V* Impression dictated by: Ta Galvan M.D.03/22/2022 4:42 PM [employer] Other XR hand RT min 3V* Dictation Location: [place] [address] [employer] Other XR hand RT min 3V* Transcribed By: DANIELLE 03/22/22 [facility] [employer] Other XR hand RT min 3V* Dictated By: Ta Galvan DO 03/22/22 [facility] [employer] Other XR hand RT min 3V* Signed By: [employer] Other XR hand RT min 3V* 03/22/22 [facility] [employer] Other Vital Signs Date Time Vital Sign Value Performing Clinician Facility 10-04-2024 14:48-0500 Body height 157.5 cm Pato Koehler DPM Work Phone: [facility] 10-04-2024 14:48-0500 Body mass index (BMI) [Ratio] 56.7 kg/m2 Pato Koehler DPM Work Phone: [facility] 10-04-2024 14:48-0500 Body weight 140.62 kg Pato Koehler DPM Work Phone: [facility] 10-04-2024 14:48-0500 Diastolic blood pressure 79 mm[Hg] Pato Koehler DPM Work Phone: [facility] 10-04-2024 14:48-0500 Heart rate 82 /min Pato Koehler DPM Work Phone: [facility] 10-04-2024 14:48-0500 Systolic blood pressure 129 mm[Hg] Pato Koehler DPM Work Phone: [facility] 09-20-2024 14:37-0400 Body height 157.5 cm Pato Koehler DPM Work Phone: [facility] 09-20-2024 14:37-0400 Body mass index (BMI) [Ratio] 56.7 kg/m2 Pato Koehler DPM Work Phone: [facility] 09-20-2024 14:37-0400 Body weight 140.62 kg Pato Koehler DPM Work Phone: [facility] 09-20-2024 14:37-0400 Diastolic blood pressure 77 mm[Hg] Pato Koehler DPM Work Phone: [facility] 09-20-2024 14:37-0400 Heart rate 79 /min Pato Koehler DPM Work Phone: [facility] 09-20-2024 14:37-0400 Systolic blood pressure 126 mm[Hg] Pato Koehler DPM Work Phone: [facility] 09-13-2024 14:46-0400 Body height 157.5 cm Pato Koehler DPM Work Phone: [facility] 09-13-2024 14:46-0400 Body mass index (BMI) [Ratio] 56.7 kg/m2 Pato Koehler DPM Work Phone: [facility] 09-13-2024 14:46-0400 Body weight 140.62 kg Pato Koehler DPM Work Phone: [facility] 09-13-2024 14:46-0400 Diastolic blood pressure 78 mm[Hg] Pato Koehler DPM Work Phone: [facility] 09-13-2024 14:46-0400 Heart rate 85 /min Pato Koehler DPM Work Phone: [facility] 09-13-2024 14:46-0400 Systolic blood pressure 123 mm[Hg] Pato Koehler DPM Work Phone: [facility] 08-30-2024 14:58-0400 Body height 157.5 cm Pato Koehler DPM Work Phone: [facility] 08-30-2024 14:58-0400 Body mass index (BMI) [Ratio] 56.7 kg/m2 Pato Brown DPM Work Phone: [facility] 08-30-2024 14:58-0400 Body weight 140.62 kg Pato Koehler DPM Work Phone: [facility] 08-30-2024 14:58-0400 Diastolic blood pressure 80 mm[Hg] Pato Koehler DPM Work Phone: [facility] 08-30-2024 14:58-0400 Heart rate 75 /min Pato Brown DPM Work Phone: [facility] 08-30-2024 14:58-0400 Respiratory rate 18 /min Pato Koehler DPM Work Phone: [facility] 08-30-2024 14:58-0400 Systolic blood pressure 128 mm[Hg] Pato Brown DPM Work Phone: [facility] 05-16-2024 15:25-0400 Diastolic blood pressure 70 mm[Hg] NURSERYPERSON-C Monique Emmanuel Work Phone: [facility] 05-16-2024 15:25-0400 Heart rate 80 /min NURSERYPERSON-C Monique Whitleymer Work Phone: [facility] 05-16-2024 15:25-0400 Respiratory rate 22 /min NURSERYPERSON-C Monique Emmanuel Work Phone: [facility] 05-16-2024 15:25-0400 SaO2% (BldA) [Mass fraction] 94 % NURSERYPERSON-C Monique Emmanuel Work Phone: [facility] 05-16-2024 15:25-0400 Systolic blood pressure 124 mm[Hg] NURSERYPERSON-C Monique Emmanuel Work Phone: [facility] 05-16-2024 12:57-0400 Body temperature 98.6 [degF] NURSERYPERSON-C Monique Emmanuel Work Phone: [facility] 05-16-2024 12:57-0400 Inhaled oxygen flow rate 6 L/min NURSERYPERSON-C Monique Emmanuel Work Phone: [facility] 05-16-2024 10:38-0400 Body mass index (BMI) [Ratio] 56.5 kg/m2 NURSERYPERSON-C Monique Emmanuel Work Phone: [facility] 05-16-2024 10:31-0400 Body height 157.48 cm NURSERYPERSON-C Monique Emmanuel Work Phone: [facility] 05-16-2024 10:31-0400 Body weight 140.16 kg NURSERYPERSON-C Monique Whitleymer Work Phone: [facility] 04-25-2024 13:27-0400 Diastolic blood pressure 85 mm[Hg] Pato Koehler [facility] 04-25-2024 13:27-0400 Heart rate 64 /min Pato Koehler [facility] 04-25-2024 13:27-0400 Mean blood pressure 103 mm[Hg] Pato Koehler [facility] 04-25-2024 13:27-0400 Systolic blood pressure 139 mm[Hg] Pato Koehler [facility] 04-25-2024 13:26-0400 Heart rate 65 /min Pato Koehler [facility] 04-25-2024 13:26-0400 Respiratory rate 16 /min Pato Koehler [facility] 04-25-2024 13:26-0400 SaO2% (BldA) [Mass fraction] 93 % Pato Koehler [facility] 04-25-2024 13:26-0400 Blood Pressure Location Pato Koehler [facility] 04-25-2024 13:26-0400 Body temperature 98.42 [degF] Pato Koehler [facility] 04-25-2024 13:26-0400 Diastolic blood pressure 83 mm[Hg] Pato Koehler [facility] 04-25-2024 13:26-0400 Mean blood pressure 100 mm[Hg] Pato Koehler [facility] 04-25-2024 13:26-0400 Systolic blood pressure 135 mm[Hg] Pato Koehler [facility] 02-27-2024 17:36-0400 Body height 154.94 cm NURSERYPERSON-C Monique Emmanuel Work Phone: [facility] 02-27-2024 17:36-0400 Body mass index (BMI) [Ratio] 58.4 kg/m2 NURSERYPERSON-C Monique Emmanuel Work Phone: [facility] 02-27-2024 17:36-0400 Body temperature 97.7 [degF] NURSERYPERSON-C Monique Emmanuel Work Phone: [facility] 02-27-2024 17:36-0400 Body weight 140.38 kg NURSERYPERSON-C Monique Emmanuel Work Phone: [facility] 02-27-2024 17:36-0400 Heart rate 87 /min NURSERYPERSON-C Moinque Emmanuel Work Phone: [facility] 02-27-2024 17:36-0400 Respiratory rate 18 /min NURSERYPERSON-C Monique Emmanuel Work Phone: [facility] 02-27-2024 17:36-0400 SaO2% (BldA) [Mass fraction] 97 % NURSERYPERSON-C Monique Emmanuel Work Phone: [facility] 03-22-2022 16:45-0400 Body height 154.94 cm Monique Suemond Other [employer] Other 03-22-2022 16:45-0400 Body mass index (BMI) [Ratio] 58.38 kg/m2 Monique Suemond Other [employer] Other 03-22-2022 16:45-0400 Body temperature 97.9 [degF] Monique Dudley Other [employer] Other 03-22-2022 16:45-0400 Body weight 140.16 kg Monique Dudley Other [employer] Other 03-22-2022 16:45-0400 Diastolic blood pressure 93 mm[Hg] Monique Suemond Other [employer] Other 03-22-2022 16:45-0400 Respiratory rate 20 /min Monique Suemond Other [employer] Other 03-22-2022 16:45-0400 SaO2% (BldA) [Mass fraction] 98 % Monique Dudley Other [employer] Other 03-22-2022 16:45-0400 Systolic blood pressure 154 mm[Hg] Monique Dudley Other [employer] Other Encounters Encounter Date Encounter Type Care Provider Facility Start: 10-04-2024 End: 10-04-2024 Postop follow up visit related to original px Pato Elizabeth Rodo DPM Work Phone: [facility] Comment on above: 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); Contracture of right ankle; Stress fracture of right foot, initial encounter Start: 10-04-2024 End: 10-04-2024 ambulatory PATO KOEHLER Not Available Start: 10-04-2024 End: 10-04-2024 Bamboo flowsheet Pato Koehler DPM Work Phone: [facility] Start: 10-04-2024 End: 10-04-2024 Bamboo flowsheet Pato Koehler DPM Work Phone: [facility] Start: 09-20-2024 End: 09-20-2024 Postop follow up visit related to original px Pato Koehler DPM Work Phone: [facility] Comment on above: 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); Contracture of right ankle Start: 09-20-2024 End: 09-20-2024 ambulatory PATO KOEHLER Not Available Start: 09-20-2024 End: 09-20-2024 Bamboo flowsheet Pato Koehler DPM Work Phone: [facility] Start: 09-20-2024 End: 09-20-2024 Bamboo flowsheet Pato Koehler DPM Work Phone: [facility] Start: 09-13-2024 End: 09-13-2024 Postop follow up visit related to original px Pato Koehler DPM Work Phone: [facility] Comment on above: 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); Contracture of right ankle; Type 2 diabetes mellitus without complication, 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 chip tester insulin use (CMS/[facility]) Start: 09-13-2024 End: 09-13-2024 ambulatory PATO KOEHLER Not Available Start: 09-07-2024 End: 09-07-2024 Telephone encounter Pato Koehler DPM Work Phone: [facility] Start: 09-05-2024 End: 09-05-2024 Lab Drop off Pato Koehler [facility] Start: 09-05-2024 End: 09-05-2024 ambulatory DPM Pato Koehler Facility:[facility] Start: 08-30-2024 End: 08-30-2024 Office outpatient visit 25 minutes Pato Koehler DPM Work Phone: [facility] Comment on above: 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); Type 2 diabetes mellitus without complication, 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 chip tester insulin use ([facility]); Heel spur, left; Plantar fasciitis; Contracture of left ankle; Contracture of right ankle Start: 08-30-2024 End: 08-30-2024 ambulatory PATO KOEHLER Not Available Start: 08-30-2024 End: 08-30-2024 Bamboo flowsheet Pato Koehler DPM Work Phone: [facility] Start: 08-30-2024 End: 08-30-2024 Bamboo flowsheet Pato Koehler DPM Work Phone: [facility] Start: 08-02-2024 End: 08-02-2024 ambulatory [...] 05-16-2024 Admission to same day surgery center NURSERYPERSON-C Monqiue Emmanuel Work Phone: [facility] [place] Start: 05-16-2024 End: 05-16-2024 ambulatory NURSERYPERSON-C Monique Emmanuel Work Phone: [facility] Work Phone: Start: 05-03-2024 End: 05-03-2024 ambulatory PATO KOEHLER Not Available Start: 04-25-2024 ambulatory Pato Koehler Facili ty:[facility] Start: 04-25-2024 End: 04-25-2024 ambulatory DPM Pato Koehler Facility:[facility] Start: 04-25-2024 End: 04-25-2024 Patient encounter procedure Pato Koehler [facility] Start: 04-16-2024 End: 05-10-2024 Pre-admission assessment Pato Koehler [facility] Start: 04-12-2024 End: 04-12-2024 ambulatory PATO KOEHLER Not Available Start: 03-29-2024 End: 03-29-2024 ambulatory PATO KOEHLER Not Available Start: 02-27-2024 End: 02-27-2024 ambulatory NURSERYPERSON-C Monique Emmanuel Work Phone: [facility] Work Phone: Start: 02-27-2024 End: 02-27-2024 Patient encounter procedure NURSERYPERSON-C Monique Emmanuel Work Phone: [facility] Work Phone: [...] medical examination without abnormal findings MONIQUE EMMANUEL [facility] Start: 08-18-2022 End: 08-19-2022 ambulatory MONIQUE EMMANUEL Facility:[facility] Start: 08-18-2022 End: 08-19-2022 Encounter for general adult medical examination without abnormal findings MONIQUE EMMANUEL Facility:[facility] Start: 06-01-2022 End: 06-01-[address] WESTLEY JHA Facility:[facility] Start: 03-22-2022 End: 03-22-2022 ambulatory Monique Dudley Other [employer] Other Start: 03-22-2022 Office outpatient vi sit 15 minutes Monique Dudley [facility] Procedures Date Procedure Procedure Detail Performing Clinician Start: 05-16-2024 Debridement NURSERYPERSON-C Shruti Emmanuel Work Phone: Start: 05-16-2024 X-ray of left foot NURSERYPERSON-C Monique Emmanuel Work Phone: Start: 02-27-2024 Plain X-ray of right shoulder NURSERYPERSON-C Monique Emmanuel Work Phone: Cholecystectomy Pato pulliam Plan of Treatment Date Care Activity Detail Author Start: 10-04-2024 End: 10-04-2024 Patient encounter procedure 10/04/2024 2:40 PM EST Office Visit [facility] [address] [place] [address] Pato Koehler DPM [address] [address] 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); Contracture of right ankle [facility] Comment on above: 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); Contracture of right ankle Start: 09-20-2024 End: 09-20-2024 Patient encounter procedure 09/20/2024 2:40 PM EDT Office Visit [facility] [address] [facility] [address] [place] [address] Pato Koehler DPM [address] [address] 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); Contracture of right ankle [facility] Comment on above: 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); Contracture of right ankle Start: 09-13-2024 End: 09-13-2024 Patient encounter procedure 09/13/2024 3:20 PM EDT Office Visit [facility] [address] [address] Pato Koehler DPM [address] [address] [facility] Start: 09-12-2024 End: 09-12-2024 Patient encounter procedure 09/12/2024 3:00 PM EDT Office Visit [facility] [address] [place] [address] Pato Koehler DPM [address] [address] [facility] Start: 09-05-2024 End: 09-05-2024 Patient encounter procedure 09/05/2024 7:30 AM EDT Procedure Visit [facility] Pato Koehler DPM [address] [address] [facility] Start: 08-30-2024 End: 08-30-2024 Patient encounter procedure 08/30/2024 2:50 PM EDT Office Visit [facility] [address] [facility] [address] [place] [address] Pato Koehler DPM [address] [address] 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); Type 2 diabetes mellitus without complication, 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 chip tester insulin use ([facility]) [facility] Comment on above: 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); Type 2 diabetes mellitus without complication, 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 chip tester insulin use ([facility]) Start: 05-16-2024 [facility] Start: 05-16-2024 [facility] MR Foot - right WO contrast MR foot right wo IV contrast Imaging Routine Stress fracture of right foot, initial encounter Ordered: 10/04/2024 [facility] Work Phone: Comment on above: Ordered: 10/04/2024 Patient Education Know your Meds [facility] Work Phone: XR Foot - right 3 Views XR foot 3+ views right Imaging Routine Accessory navicular bone of right foot 09/13/2024 3:04 PM EDT [facility] Work Phone: Immunizations Immunization Date Immunization Notes Care Provider [facility] 07-19-2002 hepatitis B vaccine, pediatric or pediatric/adolescent dosage Pato Koehler DPM Work Phone: [facility] 07-19-2002 measles, mumps and rubella virus vaccine Pato Koehler DPM Work Phone: [facility] 04-16-1993 diphtheria, tetanus toxoids and pertussis vaccine Pato Koehler DPM Work Phone: [facility] 04-16-1993 trivalent poliovirus vaccine, live, oral Pato Koehler DPM Work Phone: [facility] 05-18-1990 haemophilus influenz ae type b vaccine, conjugate unspecified formulation Pato Koehler DPM Work Phone: [facility] 10-13-1989 diphtheria, tetanus toxoids and pertussis vaccine Pato Koehler DPM Work Phone: [facility] 10-13-1989 measles, mumps and rubella virus vaccine Pato Koehler DPM Work Phone: [facility] 10-13-1989 trivalent poliovirus vaccine, live, oral Pato Koehler DPM Work Phone: [facility] 05-11-1989 diphtheria, tetanus toxoids and pertussis vaccine Pato Koehler DPM Work Phone: [facility] 03-17-1989 diphtheria, tetanus toxoids and pertussis vaccine Pato Koehler DPM Work Phone: [facility] 03-17-1989 trivalent poliovirus vaccine, live, oral Pato Koehler DPM Work Phone: [facility] 1988 diphtheria, tetanus toxoids and pertussis vaccine Pato Koehler DPM Work Phone: [facility] 1988 trivalent poliovirus vaccine, live, oral Pato Koehler DPM Work Phone: [facility] Payers Date Payer Category Payer Self-pay [id number] 2020 [facility] [id number] 2020 Unknown BCBS BCBS [id number] 2020-Present [phone] [address] [place] [address] [id number]. [id number] 1988 Unknown [id number] 2.16.840.1.501128.3.579. 2.593 1988 Unknown [id number] 2.16.840.1.203297.3.579. 2.593 1988 Unknown [id number] 2.16.840.1.637656.3.579. 2.593 1988 Unknown [id number] 2.16.840.1.450948.3.579. 2.593 1988 Unknown [id number] 2.16.840.1.480735.3.579. 2.593 1988 Unknown [id number] 2.16.840.1.225344.3.579. 2.593 1988 Unknown [id number] 2.16.840.1.036297.3.579. 2.593 1988 Unknown [id number] 2.16.840.1.959664.3.579. 2.593 1988 Unknown [id number] 2.16.840.1.686170.3.579. 2.727 1988 Unknown [id number] 2.16.840.1.262105.3.579. 2.1259 1988 Unknown [id number] 2.16.840.1.990766.3.579. 2.1258 1988 Unknown [id number] 2.16.840.1.534189.3.579. 2.1258 1988 Unknown [id number] 2.16.840.1.543317.3.579. 2.1258 1988 Unknown [id number] 2.16.840.1.810243.3.579. 2.1258 1988 Unknown [id number] 2.16.840.1.713144.3.579. 2.1258 1988 Unknown [id number] 2.16.840.1.510066.3.579. 2.727 1988 Unknown [id number] 2.16.840.1.634568.3.579. 2.1258 1988 Unknown [id number] 2.840.1.431956.3.579. 2.1258 1988 Unknown [id number] 2.840.1.369872.3.579. 2.1258 1988 Unknown [id number] 2.16.840.1.720275.3.579. 2.1258 1988 Unknown [id number] 2.16.840.1.393306.3.579. 2.1258 1988 Unknown [id number] 2.16.840.1.872502.3.579. 2.1258 1988 Unknown [id number] 2.16.840.1.329843.3.579. 2.1258 1988 Unknown [id number] 2.16.840.1.279033.3.579. 2.1258 1988 Unknown [id number] 2.16.840.1.785437.3.579. 2.1258 1959 [employer] Shield [id number] 2.16.840.1.223410.19 Unknown [id number] 2.16.840.1.363681.3.579. 2.531 Unknown [id number] 2.16840.1.677895.3.579. 2.531 Social History Date Type Detail Facility Unknown if ever smoked [employer] Other Start: 08-02-2024 End: 09-20-2024 Sex Assigned At [facility] Start: 10-25-2018 End: 03-29-2024 Tobacco smoking status NHIS Never smoked tobacco (finding) [facility] Start: 1990 Sex Assigned At Female [facility] Tobacco smoking status No Smoking Status Entered [facility] Start: 03-29-2024 Tobacco use and exposure [...] Assessment Result Facility 04-25-2024 Functional Status No [facility] Clinical Notes 03-22-2022 to 10-04-2024 Pato Koehler [...] History: Past Medical History: Diagnosis Date Diabetes ([facility]) Ear problems GERD (gastroesophageal reflux disease) 2011 [...] Pato Koehler DPM documented in this encounter [facility] 09-20-2024 History of Presen t illness Narrative Patient: Kynug Paul : 1990 PCP: Erich Garcia MD [...] History: Past Medical History: Diagnosis Date Diabetes ([facility]) Ear problems GERD (gastroesophageal reflux disease) 2011 [...] Pato Koehler DPM documented in this encounter [facility] 09-07-2024 Telephone encount er Note Has been called for possible increase in pain medication and will switch from hydrocodone to oxycodone and sent to [facility] and Ankita [facility] 09-07-2024 Miscellaneous Notes Formattin g of this note might be different from the original. Has been called for possible increase in pain medication and will switch from hydrocodone to oxycodone and sent to [facility] and Ankita documented in this encounter [facility] 08-30-2024 History of Presen t illness [...] History: Past Medical History: Diagnosis Date Diabetes ([facility]) Ear problems GERD (gastroesophageal reflux disease) 2012 [...] cool tibia to toes b/l NEURO: 5.07 Webster Deyanira monofilament test positive to digits and [...] 2 diabetes mellitus without complication, 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 halfway insulin use ([facility]) 3. Heel spur, left 4. Plantar fasciitis [...] risks, alternatives, benefits, post op complications and chip tester expectations were discussed including but not limited to: infection,bone infection,wound dehiscence hardware failure and irritation,wound dehiscence,delay union/mal union/non union of bone. RSDS,neuroma,duty limitations,DVT/PE, [place],nerve damage, scar, loss of sensation, swelling. Pt [...] date and current (date) August 30, 2024 Pato Koehler DPM documented in this encounter [facility] 03-22-2022 Evaluation note Encounter Date Diagnosis [...] no improvement in 5 to 7 days. [employer] Other Evaluation + Plan note Future Appointments Appointment Date:05/09/2024 07:30:00 AM Scheduled Provider: Location:[facility] Work Phone: Evaluation note* Diagnosis 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 Type 2 diabetes mellitus without complication, 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 chip tester insulin use ([facility]) Heel spur, left Plantar fasciitis Plantar fascial fibromatosis Contracture of left ankle Contracture of right ankle documented in this encounter [facility] HealthcareEvaluation note* Diagnosis 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 documented in this encounter [facility] HealthcareEvaluation note* Diagnosis 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 Contracture of right ankle Type 2 diabetes mellitus without complication, 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 chip tester insulin use ([facility]) documented in this encounter [facility]* Diagnosis 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 Contracture of right ankle documented in this encounter [facility] HealthcareEvaluation note* Diagnosis 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 Contracture of right ankle Stress fracture of right foot, initial encounter documented in this encounter [facility] HealthcareHistory general Narrative - Reported* Type Description Date Medical History Acquired hypothyroidism Medical History vitamin D deficiency Surgical History cholecystectomy Hospitalization History No Hospitalization [facility] Other History of Present illness Narrative* Pato [...] History: Past Medical History: Diagnosis Date Diabetes ([facility]) Ear problems GERD (gastroesophageal reflux disease) 2011 [...] 2 diabetes mellitus without complication, 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 chip tester insulin use ([facility]) PLAN Patient to keep dry sterile dressing [...] patient Pato Koehler DPM documented in this [facility] course Narrative No data available for this section [facility] Discharge instructions No data available for this section [facility] Discharge instructions Additional Instructions DISCHARGE INSTRUCTIONS [...] operative site FOLLOW UP Phone numbers: Office [phone] [ ][facility] Work Phone: Progress note No data available for this section [facility] Summary Purpose Family History No Family [...] bone of right foot Pato Koehler DPM [address] [address] Referral ID Status Reason Start Date Expiration Date V isits Requested Visits Authorized [id number] Pending Review 09/07/2024 03/06/2025 1 1 Additional [...] and content) DATE CREATED AUTHOR 05/06/2023 [facility] DATE CREATED AUTHOR AUTHOR'S ORGANIZ ATION 04/26/2024 [facility] DATE CREATED AUTHOR AUTHOR'S ORGANIZ ATION 05/25/2024 [facility] DATE CREATED AUTHOR AUTHOR'S ORGANIZ ATION 07/01/2024 [facility] DATE CREATED AUTHOR AUTHOR'S ORGANIZ ATION 09/12/2024 [facility] DATE CREATED AUTHOR AUTHOR'S ORGANIZ ATION 09/13/2024 [facility] DATE CREATED AUTHOR AUTHOR'S ORGANIZ ATION 09/15/2024 [facility] DATE CREATED AUTHOR AUTHOR'S ORGANIZ ATION 10/06/2024 [facility] Care Teams (unrecognized [...] May 16, 2024 End: May 16, 2024 Language Specialist Relationship Specialty Start Date End Date Erich Garcia MD [address] [place] [phone] PCP - General Family Medicine 07/24/24 Monique Emmanuel MD [address] [place] [phone] Referring Physician Family Medicine 03/29/24 Monique Emmanuel MD [address] [place] [phone] Referring Physician Family Medicine 07/24/24 Jaime Camargo DO [address] [place] [address] Otolaryngology 07/24/24 Language Specialist Relationship Specialty Start Date End Date Erich Garcia MD [address] [place] [phone] PCP - General Family Medicine 07/24/24 Monique Emmanuel MD [address] [place] [phone] Referring Physician Family Medicine 03/29/24 Monique Emmanuel MD [address] [place] [phone] Referring Physician Family Medicine 07/24/24 Jaime Camargo DO [address] [place] [address] Otolaryngology 07/24/24 Language Specialist Relationship Specialty Start Date End Date Erich Garcia MD [address] [place] [phone] PCP - General Family Medicine 07/24/24 Monique Emmanuel MD [address] [place] [phone] Referring Physician Family Medicine 03/29/24 Monique Emmanuel MD [address] [place] [phone] Referring Physician Family Medicine 07/24/24 Jaime Camargo DO [address] [place] [address] Otolaryngology 07/24/24 Language Specialist Relationship Specialty Start Date End Date Erich Garcia MD [address] [place] [phone] PCP - General Family Medicine 07/24/24 Monique Emmanuel MD [address] [place] [phone] Referring Physician Family Medicine 03/29/24 Monique Emmanuel MD [address] [place] [phone] Referring Physician Family Medicine 07/24/24 Jaime Camargo DO [address] [place] [address] Otolaryngology 07/24/24 Language Specialist Relationship Specialty Start Date End Date Erich Garcia MD [address] [place] [phone] PCP - General Family Medicine 07/24/24 Monique Emmanuel MD [address] [place] [phone] Referring Physician Family Medicine 03/29/24 Monique Emmanuel MD [address] [place] [phone] Referring Physician Family Medicine 07/24/24 Jaime Camargo DO [address] [place] [address] Otolaryngology 07/24/24 Language Specialist Relationship Specialty Start Date End Date Erich Garcia MD [address] [place] [phone] PCP - General Family Medicine 07/24/24 Monique Emmanuel MD [address] [place] [phone] Referring Physician Family Medicine 03/29/24 Monique Emmanuel MD [address] [place] [phone] Referring Physician Family Medicine 07/24/24 Jaime Camargo DO [address] [place] [address] Otolaryngology 07/24/24 Goals (unrecognized section and content) [...] BE BASED ON THE PRIMARY CLINICAL RECORDS. [employer] [facility]. provides no warranty or guarantee of the accuracy or completeness of information in this document.
== END 2024-10-16 09:33 | disposition home or self-care (01) ==
LOC: MRI 09:34
PROVIDERS: PCP Nurse Practitioner Family
DX: M84.374A Stress fracture, right foot, initial encounter for fracture (principal); M77.51 Other enthesopathy of right foot and ankle; M19.071 Primary osteoarthritis, right ankle and foot
CPT/HCPCS: 73718

== ENCOUNTER 2024-10-20 21:56 | Emergency (ER) | payer BC, SELFPAY ==
--- OUTSIDE RECORDS SUMMARY | 2024-10-20 22:02 | XMS_ITS | CCD ---
Author Organization [facility] Care Team Providers Care Pot Runner Name Role Phone Monique Dudley Unavailable MONIQUE [...] Care Provider MONIQUE EMMANUEL Primary Care Physician [phone] Pato Koehler Referring Unavailable Pato Koehler Attending [...] Provider Jaime Camargo DO Unavailable Rodo, DPM Paot A Attending Unavailabl e Brown, DPM Pato [...] source) Egg protein Drug allergy [facility] ScreenHits Other (1 source) Sulf-10 Drug allergy [facility] ScreenHits Other (1 source) Sulfonamides (Antibiotic) Drug allergy (disorder) 3 [facility] Repository (4 sources) Sulfonamides (Antibiotic); Translations: [Sulfa (Sulfonamide Antibiotics)] Allergy to substance 4 [facility] (4 sources) Egg Derived; Translations: [Egg Derived] Allergy to substance 4 [facility] (5 sources) Sulfonamides (Antibiotic); Translations: [sulfa drugs] [...] hours as needed for pain HYDROcodone-acetamin ophen ([place]) 5-325 MG tablet Indications: Pain Take 1 [...] day at the same time 03/12/2024 Active Dawson Sling (3 sources) Start: 02-27-2024 Dawson Slin g Active 0 .Route 1 February [...] Surgical Pathology Reporton 09-12-2024 Surgical Pathology Report [address] [place] [address]- Surgical Pathology Report Collected Date/Time: 09/05/2024 08:32 [...] DIAGNOSIS. Addition of clinical information only. Normal [facility] Comment on above: Performed By: #### [id number] #### [facility] Laboratory [address] [place] [address] Surgical Pathology Reporton 09-11-2024 Surgical Pathology Report [address] [place] [address]- Surgical Pathology Report Collected Date/Time: 09/05/2024 08:32 [...] examination performed unless gross only specified. Normal [facility] Comment on above: Performed By: #### 4 [id number] #### [facility] Laboratory [address] [place] [address] Basic Metabolic Panelon 04-28 Creatinine Clr Calc Pharmacy 161.75 Normal [facility] Comment on above: Result Comment: PERF ORMED BY: [place] [address] PATHOLOGIST COSTUMER ASSISTANT SIMEON BIGGS M.D. Performed By: #### B MP #### [place] [id number] [place] GFR/1.73 sq M.predicted MDRD (S/P/Bld) [Vol rate/Area] mL/min/{1.73_m2} Normal [facility] Comment on above: Performed By: #### B MP #### [place] [id number] [place] Calcium [Mass/volume] in Ser um or PlasmaOrdered By: Melvin Ruano on 05-16-2024 Calcium [Mass/Vol] 8.8 mg/dL Normal 8.6-10.3 [facility] Comment on above: Performed By: #### B MP #### [place] [id number] [place] Capillary blood glucose jaswinder urement by glucometer (mass/volume)Ordered By: Pato Koehler on 05-16-2024 Glucose [Mass/Vol] 106 mg/dL Normal [facility] Comment on above: Random Glucose Refer ence Range is dependent on time and content of last meal. Glucose of more than 200 mg/dL in a nonstressed, ambulatory subject supports the diagnosis of Diabetes Mellitus. Result Comment: Byron om Glucose Reference Range is dependent on time and content of last meal. Glucose of more than 200 mg/dL in a nonstressed, ambulatory subject supports the diagnosis of Diabetes Mellitus. Performed By: #### G LULS #### Point of Care testing , Carbon dioxide, total [Moles /volume] in Serum or PlasmaOrdered By: Melvin Ruano on 05-16-2024 CO2 [Moles/Vol] 27.3 mmol/L Normal 21.0-31.0 [facility] Comment on above: Performed By: #### B MP #### [facility] [address] [place] [address] [place] Chloride [Moles/volume] in S nikkie or PlasmaOrdered By: Melvin Ruano on 05-16-2024 Chloride [Moles/Vol] 105 mmol/L Normal 98-107 [facility] Comment on above: Performed By: #### B MP #### [facility] [address] Creatinine [Mass/volume] in Serum or PlasmaOrdered By: Melvin Ruano on 05-16-2024 Creatinine [Mass/Vol] 0.66 mg/dL Normal 0.60-1.20 [facility] Comment on above: Performed By: #### B MP #### [facility] [address] Glucose Poct Glucometerson 0 05-16-2024 Commemt1 Glu2: Cleaned Meter Normal [facility] Comment on above: Result Comment: PERF ORMED BY: [place] [address] PATHOLOGIST COSTUMER ASSISTANT SIMEON BIGGS M.D. Performed By: #### G LULS #### Point of Care testing , Glucose [Mass/volume] in Ser um or PlasmaOrdered By: Melvin Ruano on 05-16-2024 Glucose [Mass/Vol] 107 mg/dL High 70-100 [facility] Comment on above: ADA recommended refe rence rangeRandom Glucose Reference Range is dependent on time and content of last meal. Glucose of more than 200 mg/dL in a nonstressed, ambulatory subject supports the diagnosis of Diabetes Mellitus. Result Comment: Byron om Glucose Reference Range is dependent on time and content of last meal. Glucose of more than 200 mg/dL in a nonstressed, ambulatory subject supports the diagnosis of Diabetes Mellitus. ADA recommended reference range Performed By: #### B MP #### [facility] [address] [place] [address] HCG ( test) IA.rapi d Ql (U)Ordered By: Melvin Ruano on 05-16-2024 HCG ( test) Ql (U) Negative [facility] HCG,Urineon 05-16-2024 Beta HCG ( test) Ql (U) Negative Normal [facility] Comment on above: Result Comment: PERF ORMED BY: [place] [address] PATHOLOGIST COSTUMER ASSISTANT SIMEON BIGGS M.D. Performed By: #### U HCG #### [facility] [address] [place] [address] Jason 05-16-2024 L Specimen: [id number] Received: 05/16/24 Status: KESHA Romo Num: [id number] Spec Type: Surgical Subm Dr: Pato Koehler DPM Tissues: A Bone Fragments - Other than Path Fracture (ACCESSORY BONE LT FOOT) Procedures: HE, Gross/Micro L3, Decalcification Age/ Patient Sex Location Account Attending Physician Kyung Paul 33/F [place] [id number] Pato Koehler DPM SPEC NUM: [id number] RECD: 05/16/24 STATUS: KESHA ROMO NUM: [id number] BRUNO: 05/16/24- SUBM DR: Pato Koehler DPM [...] areas of necrosis or cysts are present. Drafter Electrical sections are submitted following decalcification in A1. CPT Codes 72675, 73275 Specimen: [id number] Received: 05/16/24-1256 Status: KESHA Romo Num: [id number] Spec Type: Surgical Subm Dr: Pato Koehler DPM Tissues: A Bone Fragments - Other than Path Fracture (ACCESSORY BONE LT FOOT) Procedures: HE, Gross/Micro L3, Decalcification Patient: Kyung Paul [id number] (Continued) Signed (signature on file) Marco-Lukasz Dupree MD 05/19/24 1640 Normal [facility] No Panel InformationOrdered By: Pato Koehler on 05-16-2024 Bedside Glucose Comment Glu2: cleaned meter [facility] No Panel InformationOrdered By: Melvin Ruano on 05-16-2024 Estimated GFR (CKD-EPI) > 60.0 mL/Min [facility] Creatinine Clearance (Chem 161.75 [facility] Potassium [Moles/volume] in Serum or PlasmaOrdered By: Melvin Ruano on 05-16-2024 Potassium [Moles/Vol] 3.8 mmol/L Normal 3.5-5.1 [facility] Comment on above: Performed By: #### B MP #### [facility] [address] [place] [address] Serum or plasma anion gap de terminationOrdered By: Melvin Ruano on 05-16-2024 Anion gap [Moles/Vol] 9.5 mmol/L Normal 6.0-15.0 [facility] Comment on above: Performed By: #### B MP #### [facility] [address] [place] [address] Sodium [Moles/volume] in Ser um or PlasmaOrdered By: Melvin Ruano on 05-16-2024 Sodium [Moles/Vol] 138 mmol/L Normal 136-145 [facility] Comment on above: Performed By: #### B MP #### [facility] [address] Urea nitrogen [Mass/volume] in Serum or PlasmaOrdered By: Melvin Ruano on 05-16-2024 Urea nitrogen [Mass/Vol] 17 mg/dL Normal 7-25 [facility] Comment on above: Performed By: #### B MP #### [facility] [address] XR foot LT 2Von 05-16-2024 XR foot LT 2V [facility] [place] [address] [place] [address] XRay Report Signed Patient: Kyung Paul MR#: [id number] : 1990 Acct:[id number] Age/Sex: 33 / F ADM Date: 05/16/24 Loc: [place] Room: Type: [facility] [...] Leisa Adames M.D.05/16/2024 3:20 PM Dictation Location: [place] [address] Transcribed By: [facility] 05/16/24 1520 Dictated By: Leisa Adames MD 05/16/24 1515 Signed By: 05/16/24 1520 Normal [facility] CBC w/ Auto Diffon 4 Basophils/100 WBC (Bld) 0.5 % Normal 0.0-2.0 [facility] Comment on above: Performed By: #### 2 [id number] #### [facility] Laboratory [address] [place] [address] Basophils/Leukocytes Auto (Bld) [Pure # fraction] 0.1 E9/L Normal 0.0-0.2 [facility] Comment on above: Performed By: #### 2 [id number] #### [facility] Laboratory [address] [place] [address] Eosinophils (Bld) [#/Vol] 0.3 E9/L Normal 0.0-0.5 [facility] Comment on above: Performed By: #### 2 [id number] #### [facility] [address] [place] [address] Eosinophils/100 WBC (Bld) 2.9 % Normal 0.0-8.0 [facility] Comment on above: Performed By: #### 2 [id number] #### [facility] Laboratory [address] [place] [address] Erythrocyte distribution width (RBC) [Ratio] 15.6 % High 10.9-14.2 [facility] Comment on above: Performed By: #### 2 [id number] #### [facility] [address] [place] [address] Hematocrit (Bld) [Volume fraction] 39.9 % Normal 34.0-46.0 [facility] Comment on above: Performed By: #### 2 [id number] #### [facility] [address] [place] [address] Hemoglobin (Bld) [Mass/Vol] 12.8 g/dL Normal 12.0-16.0 [facility] Comment on above: Performed By: #### 2 [id number] #### [facility] [address] [place] [address] Lymphocytes (Bld) [#/Vol] 2.3 E9/L Normal 1.0-4.0 [facility] Comment on above: Performed By: #### 2 [id number] #### [facility] [address] [place] [address] Lymphocytes/100 WBC (Bld) 20.9 % Normal 14.0-50.0 [facility] Comment on above: Performed By: #### 2 [id number] #### [facility] Laboratory [address] [place] [address] MCH (RBC) [Entitic mass] 25.4 pg Low 27.0-34.0 [facility] Comment on above: Performed By: #### 2 [id number] #### [facility] [address] [place] [address] MCHC (RBC) [Mass/Vol] 32.2 g/dL Normal 31.4-36.[address] [facility] Comment on above: Performed By: #### 2 [id number] #### [facility] [address] [place] [address] MCV (RBC) [Entitic vol] 79.0 fL Low 80.0-100.0 [facility] Comment on above: Performed By: #### 2 [id number] #### [facility] [address] [place] [address] Monocytes (Bld) [#/Vol] 0.7 E9/L Normal 0.2-1.0 [facility] Comment on above: Performed By: #### 2 [id number] #### [facility] [address] [place] [address] Neutrophils (Bld) [#/Vol] 7.7 E9/L High 2.0-7.5 [facility] Comment on above: Performed By: #### 2 [id number] #### [facility] [address] [place] [address] Neutrophils/100 WBC (Bld) 69.3 % Normal 36.0-75.0 [facility] Comment on above: Performed By: #### 2 [id number] #### [facility] [address] [place] [address] Platelet mean volume (Bld) [Entitic vol] 8.3 fL Normal 6.4-10.8 [facility] Comment on above: Performed By: #### 2 [id number] #### [facility] [address] [place] [address] Platelets (Bld) [#/Vol] 346.0 E9/L Normal 150.0-500.0 [facility] Comment on above: Performed By: #### 2 [id number] #### [facility] Laboratory [address] [place] [address] RBC (Bld) [#/Vol] 5.1 E12/L Normal 4.3-5.9 [facility] Comment on above: Performed By: #### 2 [id number] #### [facility] [address] [place] [address] WBC corrected for nucl RBC Auto (Bld) [#/Vol] 11.1 E9/L High 4.0-11.0 [facility] Comment on above: Performed By: #### 2 [id number] #### [facility] [address] [place] [address] Consent for Treatmenton 03-29 Consent for Treatment [id number] #1.00TIFF Normal [facility] HEMATOLOGYOrdered By: SYSTEM SYSTEM on 04-25-2024 Basophils/100 [...] Remisol Heme Physician Orderon 04-18-2024 Physician Order [id number] #1.00TIFF Normal [facility] XR shoulder RT min 2V*on XR shoulder RT min 2V* [address] [address] XRay Report Signed Patient: Kyung Paul MR#: [id number] : 1990 Acct:[id number] Age/Sex: 33 / F ADM Date: 02/27/24 Loc: [facility] Room: Type[facility] Attending Dr: Monique SANDOVAL Copies to: [...] Leisa Adames M.D.02/27/2024 6:14 PM Dictation Location: [place] [address] Transcribed By: [facility] 02/27/241813 Dictated By: Leisa Adames MD 02/27/241812 Signed By: 02/27/241813 Normal [facility] GLYCOHEMOGLOBIN A1Con 2022 ADA RECOMMENDATION SEE BELOW Normal [facility] Comment on above: Result Comment: ADA RECOMMENDED LIMIT 4.0 - 6.0 ADA THERAPEUTIC TARGET < 7.0 ACTION SUGGESTED > 7.0 Performed By: #### A 1C #### [facility] [address] [place] [address] [address] Benito Dupree Glucose [Mass/Vol] 105 mg/dL Normal [facility] Comment on above: Performed By: #### A 1C #### [facility] [address] [place] [address] [address] Benito Dupree HbA1c (Bld) [Mass fraction] 5.3 % Normal 4.5-6.2 [facility] Comment on above: Performed By: #### A 1C #### [facility] [address] [place] [address] [address] Benito Dupree Covid-19 PCR (CVDTB)on SARS-CoV-2 (COVID-19) RNA MUKUND+probe Ql (Unsp spec) Not detected Normal NOT DETECTED [facility] Comment on above: Result Comment: This test is not yet approved or cleared by the [place] FDA. When there are no FDA-approved or cleared tests available, and other criteria are met, FDA can make tests available under an emergency access mechanism called an Emergency Use Authorization (EUA). The EUA for this test is supported by the [employer] of Health and Human Service's (HHS's) declaration [...] SARS-CoV-2. Performed By: #### C VDTBH #### [facility] [address] [place] [address] Dr. Benito Dupree INFLUENZA A AND B AGon 01-[facility] Normal [facility] Comment on above: Result Comment: Nega tive for Flu A protein angiten. Infection due to Flu A cannot be ruled out. Flu A angiten in the sample may be below the detection limit of the test. Performed By: #### I NFLUAB #### [facility] [address] [place] [address] Dr. Benito Dupree INFLUBNEG SEE BELOW Normal [facility] Comment on above: Result Comment: Nega tive for Flu B protein antigen. Infection due to Flu B cannot be ruled out. Flu B antigen in the sample may be below the detection limit of the test. Performed By: #### I NFLUAB #### [facility] [address] [place] [address] Dr. Benito Dupree INFLUENZA A AG Negative Normal NEGATIVE SEE COMMENT [facility] Comment on above: Performed By: #### I NFLUAB #### [facility] [address] [place] [address] [address] Benito Dupree INFLUENZA B AG Negative Normal NEGATIVE SEE COMMENT [facility] Comment on above: Performed By: #### I NFLUAB #### [facility] [address] [place] [address] Dr. Benito Dupree GLYCOHEMOGLOBIN A1Con 2021 ADA RECOMMENDATION SEE BELOW Normal [facility] Comment on above: Result Comment: ADA RECOMMENDED LIMIT 4.0 - 6.0 ADA THERAPEUTIC TARGET < 7.0 ACTION SUGGESTED > 7.0 Performed By: #### A 1C #### [facility] [address] [place] [address] [address] Benito Dupree Glucose [Mass/Vol] 143 mg/dL Normal [facility] Comment on above: Performed By: #### A 1C #### [facility] [address] [place] [address] Dr. Benito Dupree HbA1c (Bld) [Mass fraction] 6.6 % Critically high 4.5-6.2 [facility] Comment on above: Performed By: #### A 1C #### [facility] [address] [place] [address] Dr. Benito Dupree LIPID PROFILEon 11-15-2022 CHOL-HDL RATIO NORM SEE BELOW Normal [facility] Comment on above: Result Comment: 3.3 - 4.4 LOW RISK 4.4 - 7.1 AVERAGE RISK 7.1 - 11.0 MODERATE RISK >11.0 HIGH RISK Performed By: #### I NFLUAB #### [facility] [address] [place] [address] Dr. Benito Dupree Cholesterol [Mass/Vol] 154 mg/dL Normal <=200 Th [facility] Comment on above: Performed By: #### I NFLUAB #### [facility] [address] [place] [address] Dr. Benito Dupree Cholesterol in HDL [Mass/Vol] 29 mg/dL Critically low 40-60 [facility] Comment on above: Performed By: #### I NFLUAB #### [facility] [address] [place] [address] Dr. Benito Dupree Cholesterol in LDL [Mass/Vol] 98.2 mg/dL Normal [facility] Comment on above: Performed By: #### I NFLUAB #### [facility] [address] [place] [address] [address] Benito Dupree Cholesterol.total/Lisandra sterol in HDL [Mass ratio] 5.3 {ratio} Normal [facility] Comment on above: Performed By: #### I NFLUAB #### [facility] [address] [place] [address] [address] Benito Dupree HDL NORMAL > or = 60 mg/dl - LOW CARDIOVASCULAR RISK <40 mg/dl - HIGH CARDIOVASCULAR RISK Normal [facility] Comment on above: Performed By: #### I NFLUAB #### [facility] [address] [place] [address] [address] Benito Dupree LDL CALC NORMAL SEE BELOW Normal [facility] Comment on above: Result Comment: <100 mg/dl OPTIMAL 100 - 129 mg/dl NEAR OR ABOVE OPTIMAL 130 - 159 mg/dl BORDERLINE HIGH 160 - 189 mg/dl HIGH >190 mg/dl VERY HIGH Performed By: #### I NFLUAB #### [facility] [address] [place] [address] [address] Benito Dupree Triglyceride [Mass/Vol] 134 mg/dL Normal <=150 T [facility] Comment on above: Performed By: #### I NFLUAB #### [facility] [address] [place] [address] [address] Benito Dupree VLDL CALC 26.8 mg/dL Normal [facility] Comment on above: Performed By: #### I NFLUAB #### [facility] [address] [place] [address] [address] Benito Dupree INSULINon 08-19-2022 Insulin 24.3 uIU/mL Normal 2.6-24.9 [facility] Comment on above: Performed By: #### I NFLUAB #### [facility] [address] [place] [address] [address] Benito Dupree T4, T3U, FTI LABCORPon 08-19 Free Thyroxine Index 2.6 Normal 1.2-4.9 [facility] Comment on above: Performed By: #### T HYLC #### [facility] [address] [place] [address] Dr. Benito Dupree T3 Uptake 29 % Normal 24-39 [facility] Comment on above: Performed By: #### T HYLC #### [facility] [address] [place] [address] Dr. Benito Dupree T4 [Mass/Vol] 8.8 ug/dL Normal 4.5-12.0 [facility] Comment on above: Performed By: #### T HYLC #### [facility] [address] [place] [address] Dr. Benito Dupree CBC AUTO DIFFon 08-18-2022 BASO # 0.1 103/ul Normal 0.0-0.1 [facility] Comment on above: Performed By: #### I NFLUAB #### [facility] [address] [place] [address] Dr. Benito Dupree Basophils/100 WBC (Bld) 0.8 % Normal 0.2-2.0 [facility] Comment on above: Performed By: #### I NFLUAB #### [facility] [address] [place] [address] Dr. Benito Dupree EO # 0.3 103/ul Normal 0.0-0.7 [facility] Comment on above: Performed By: #### I NFLUAB #### [facility] [address] [place] [address] Dr. Benito Dupree Eosinophils/100 WBC (Bld) 2.8 % Normal 0.9-7.0 [facility] Comment on above: Performed By: #### I NFLUAB #### [facility] [address] [place] [address] Dr. Benito Dupree Erythrocyte distribution width (RBC) [Ratio] 15.4 % Critically high 11.0-15.0 [facility] Comment on above: Performed By: #### I NFLUAB #### [facility] [address] [place] [address] Dr. Benito Dupree Hematocrit (Bld) [Volume fraction] 43.7 % Normal 36.0-48.0 [facility] Comment on above: Performed By: #### I NFLUAB #### [facility] [address] [place] [address] Dr. Benito Dupree Hemoglobin (Bld) [Mass/Vol] 14.2 g/dL Normal 12.0-16.0 [facility] Comment on above: Performed By: #### I NFLUAB #### [facility] [address] [place] [address] Dr. Benito Dupree IG # 0.08 10e3/ul Critically high 0.00-0.03 [facility] Comment on above: Performed By: #### I NFLUAB #### [facility] [address] [place] [address] Dr. Benito Dupree IG % 0.9 % Critically high 0.0-0.5 [facility] Comment on above: Performed By: #### I NFLUAB #### [facility] [address] [place] [address] Dr. Benito Dupree LYMPH # 2.3 103/ul Normal 1.2-3.8 [facility] Comment on above: Performed By: #### I NFLUAB #### [facility] [address] [place] [place] [address] Dr. Benito Dupree Lymphocytes/100 WBC (Bld) 24.3 % Normal 20.5-60.0 [facility] Comment on above: Performed By: #### I NFLUAB #### [facility] [address] [place] [address] Dr. Benito Dupree MANUAL DIFF REQ NO Normal [facility] Comment on above: Performed By: #### I NFLUAB #### [facility] [address] [place] [address] Dr. Benito Dupree MCH (RBC) [Entitic mass] 26.1 pg Critically low 26.7-34.0 [facility] Comment on above: Performed By: #### I NFLUAB #### [facility] [address] [place] [address] Dr. Benito Dupree MCHC (RBC) [Mass/Vol] 32.5 g/dL Normal 29.9-35.2 [facility] Comment on above: Performed By: #### I NFLUAB #### [facility] [address] [place] [address] Dr. Benito Dupree MCV (RBC) [Entitic vol] 80.2 fL Critically low 81.0-99. 0 [facility] Comment on above: Performed By: #### I NFLUAB #### [facility] [address] [place] [address] Dr. Benito Dupree MONO # 0.5 103/ul Normal 0.3-0.8 [facility] Comment on above: Performed By: #### I NFLUAB #### [facility] [address] [place] [address] Dr. Benito Dupree Monocytes/100 WBC (Bld) 5.2 % Normal 1.7-12.0 [facility] Comment on above: Performed By: #### I NFLUAB #### [facility] [address] [place] [address] Dr. Benito Dupree NEUT # 6.1 103/ul Normal 1.4-6.5 [facility] Comment on above: Performed By: #### I NFLUAB #### [facility] [address] [place] [address] Dr. Benito Dupree Neutrophils/100 WBC (Bld) 66.0 % Normal 43.0-75.0 [facility] Comment on above: Performed By: #### I NFLUAB #### [facility] [address] [place] [address] Dr. Benito Dupree Platelet mean volume (Bld) [Entitic vol] 9.9 fL Normal 9.5-13.5 [facility] Comment on above: Performed By: #### I NFLUAB #### [facility] [address] [place] [address] Dr. Benito Dupree PLT 291 103/ul Normal 150-450 [facility] Comment on above: Performed By: #### I NFLUAB #### [facility] [address] [place], [place] [id number] Dr. Benito Dupree RBC 5.45 106/ul Critically high 4.20-5.40 [facility] Comment on above: Performed By: #### I NFLUAB #### [facility] [address] [address] [address] Benito Dupree WBC 9.3 103/ul Normal 4.0-11.0 [facility] Comment on above: Performed By: #### I NFLUAB #### [facility] [address] [address] [address] Benito Dupree DIRECT LDLon 08-18-2022 Cholesterol in LDL [Mass/Vol] 50 mg/dL Normal [facility] Comment on above: Performed By: #### T HYLC #### [facility] [address] [place] [address] Dr. Benito Dupree DLDL NORMAL SEE BELOW Normal [facility] Comment on above: Result Comment: <100 mg/dl OPTIMAL 100 - 129 mg/dl NEAR OR ABOVE OPTIMAL 130 - 159 mg/dl BORDERLINE HIGH 160 - 189 mg/dl HIGH >190 mg/dl VERY HIGH Performed By: #### T HYLC #### [facility] [address] [place] [address] Dr. Benito Dupree GLYCOHEMOGLOBIN A1Con 2021 ADA RECOMMENDATION SEE BELOW Normal [facility] Comment on above: Result Comment: ADA RECOMMENDED LIMIT 4.0 - 6.0 ADA THERAPEUTIC TARGET < 7.0 ACTION SUGGESTED > 7.0 Performed By: #### A 1C #### [facility] [address] [place] [address] Dr. Benito Dupree Glucose [Mass/Vol] 332 mg/dL Normal [facility] Comment on above: Performed By: #### A 1C #### [facility] [address] [place] [address] Dr. Benito Dupree HbA1c (Bld) [Mass fraction] 13.2 % Critically high 4.5-6.2 [facility] Comment on above: Performed By: #### A 1C #### [facility] [address] [place] [address] Dr. Benito Dupree IRONon 08-18-2022 Iron [Mass/Vol] 53.0 ug/dL Normal 50.0-170.0 [facility] Comment on above: Performed By: #### I NFLUAB #### [facility] [address] [address] [address] Benito Dupree LIPID PROFILEon 08-18-2022 CHOL-HDL RATIO NORM SEE BELOW Normal [facility] Comment on above: Result Comment: 3.3 - 4.4 LOW RISK 4.4 - 7.1 AVERAGE RISK 7.1 - 11.0 MODERATE RISK >11.0 HIGH RISK Performed By: #### T HYLC #### [facility] [address] [address] [address] Benito Dupree Cholesterol [Mass/Vol] 260 mg/dL Critically high <=200 [facility] Comment on above: Performed By: #### T HYLC #### [facility] [address] [address] [address] Benito Dupree Cholesterol in HDL [Mass/Vol] 23 mg/dL Critically low 40-60 [facility] Comment on above: Performed By: #### T HYLC #### [facility] [address] [address] [address] Benito Dupree Cholesterol.total/Lisandra sterol in HDL [Mass ratio] 11.3 {ratio} Normal [facility] Comment on above: Performed By: #### T HYLC #### [facility] [address] [address] [address] Benito Dupree HDL NORMAL > or = 60 mg/dl - LOW CARDIOVASCULAR RISK <40 mg/dl - HIGH CARDIOVASCULAR RISK Normal [facility] Comment on above: Performed By: #### T HYLC #### [facility] [address] [address] [address] Benito Dupree Triglyceride [Mass/Vol] 1711 mg/dL Critically high <=150 [facility] Comment on above: Performed By: #### T HYLC #### [facility] [address] [address] [address] Benito Dupree VLDL CALC 342.2 mg/dL Normal [facility] Comment on above: Performed By: #### T HYLC #### [facility] [address] [place] [address] Dr. Benito Dupree PROF 14(COMP METB)on 022 Albumin [Mass/Vol] 3.2 g/dL Critically low 3.4-5.0 [facility] Comment on above: Performed By: #### T HYLC #### [facility] [address] [address] [address] Benito Dupree Albumin/Globulin [Mass ratio] 0.7 {ratio} Normal [facility] Comment on above: Performed By: #### T HYLC #### [facility] [address] [place] [address] Dr. Benito Dupree ALP [Catalytic activity/Vol] 92 U/L Normal 46-116 [facility] Comment on above: Performed By: #### T HYLC #### [facility] [address] [place] [address] Dr. Benito Dupree ALT [Catalytic activity/Vol] 41 U/L Normal 14-59 [facility] Comment on above: Performed By: #### T HYLC #### [facility] [address] [place] [address] Dr. Benito Dupree Anion gap [Moles/Vol] 14.1 mmol/L Normal [facility] Comment on above: Performed By: #### T HYLC #### [facility] [address] [place] [address] Dr. Benito Dupree AST [Catalytic activity/Vol] 16 U/L Normal 15-37 [facility] Comment on above: Performed By: #### T HYLC #### [facility] [address] [place] [address] Dr. Benito Dupree Bilirubin [Mass/Vol] 0.9 mg/dL Normal 0.2-1.0 [facility] Comment on above: Performed By: #### T HYLC #### [facility] [address] [place] [address] Dr. Benito Dupree Calcium [Mass/Vol] 9.1 mg/dL Normal 8.5-10.1 [facility] Comment on above: Performed By: #### T HYLC #### [facility] [address] [address] [address] Benito Dupree Chloride [Moles/Vol] 97 mmol/L Critically low 98-107 [facility] Comment on above: Performed By: #### T HYLC #### [facility] [address] [address] [address] Benito Dupree CO2 [Moles/Vol] 24.9 mmol/L Normal 21.0-32.0 [facility] Comment on above: Performed By: #### T HYLC #### [facility] [address] [address] [address] Benito Dupree Creatinine [Mass/Vol] 0.67 mg/dL Normal 0.55-1.02 [facility] Comment on above: Performed By: #### T HYLC #### [facility] [address] [address] [address] Benito Dupree EGFR-AF UKRAINIAN >60 Normal >=60 [facility] Comment on above: Performed By: #### T HYLC #### [facility] [address] [address] [address] Benito Dupree EGFR-NON AF UKRAINIAN >60 Normal >=60 [facility] Comment on above: Performed By: #### T HYLC #### [facility] [address] [address] [address] Benito Dupree Globulin (S) [Mass/Vol] 4.6 g/dL Normal [facility] Comment on above: Performed By: #### T HYLC #### [facility] [address] [address] [address] Benito Dupree Glucose [Mass/Vol] 402 mg/dL Critically high 74-106 [facility] Comment on above: Performed By: #### T HYLC #### [facility] [address] [address] [address] Benito Dupree Potassium [Moles/Vol] 4.0 mmol/L Normal 3.5-5.1 [facility] Comment on above: Performed By: #### T HYLC #### [facility] [address] [place] [address] Dr. Benito Dupree Protein [Mass/Vol] 7.8 g/dL Normal 6.4-8.2 [facility] Comment on above: Performed By: #### T HYLC #### [facility] [address] [place] [address] Dr. Benito Dupree Sodium [Moles/Vol] 132 mmol/L Critically low 136-145 [facility] Comment on above: Performed By: #### T HYLC #### [facility] [address] [place] [address] Dr. Benito Dupree Urea nitrogen [Mass/Vol] 10.0 mg/dL Normal 7.0-18.0 [facility] Comment on above: Performed By: #### T HYLC #### [facility] [address] [place] [address] Dr. Benito Dupree Urea nitrogen/Creatinine [Mass ratio] 14.9 mg/mg Normal [facility] Comment on above: Performed By: #### T HYLC #### [facility] [address] [place] [address] Dr. Benito Dupree TSHon 08-18-2022 TSH 3.676 uIU/mL Normal 0.358-3.740 [facility] Comment on above: Performed By: #### T HYLC #### [facility] [address] [place] [address] Dr. Benito Dupree VITAMIN D 25 OHon 08-18-2022 VIT D 25-OH 13.9 ng/mL Normal [facility] Comment on above: Performed By: #### I NFLUAB #### [facility] [address] [place] [address] Dr. Benito Dupree VIT D RANGES SEE BELOW Normal [facility] Comment on above: Result Comment: <20 ng/mL Vit D deficient 20 - <30 ng/mL Vit D insufficient 30 - 100 ng/mL Vit D sufficient >100 ng/mL Potential Toxicity Performed By: #### I NFLUAB #### [facility] [address] [place] [address] Dr. Benito Dupree AMYLASEon 06-01-2022 Amylase [Catalytic activity/Vol] 29 U/L Normal 25-115 [facility] Comment on above: Performed By: #### I NFLUAB #### [facility] [address] [place] [address] Dr. Benito Dupree CBC AUTO DIFFon 06-01-2022 BASO # 0.1 103/ul Normal 0.0-0.1 [facility] Comment on above: Performed By: #### I NFLUAB #### [facility] [address] [place] [address] Dr. Benito Dupree Basophils/100 WBC (Bld) 0.5 % Normal 0.2-2.0 [facility] Comment on above: Performed By: #### I NFLUAB #### [facility] [address] [place] [address] Dr. Benito Dupree EO # 0.3 103/ul Normal 0.0-0.7 [facility] Comment on above: Performed By: #### I NFLUAB #### [facility] [address] [place] [address] Dr. Benito Dupree Eosinophils/100 WBC (Bld) 2.0 % Normal 0.9-7.0 [facility] Comment on above: Performed By: #### I NFLUAB #### [facility] [address] [place] [address] Dr. Benito Dupree Erythrocyte distribution width (RBC) [Ratio] 15.3 % Critically high 11.0-15.0 [facility] Comment on above: Performed By: #### I NFLUAB #### [facility] [address] [place] [address] Dr. Benito Dupree Hematocrit (Bld) [Volume fraction] 41.5 % Normal 36.0-48.0 [facility] Comment on above: Performed By: #### I NFLUAB #### [facility] [address] [place] [address] Dr. Benito Dupree Hemoglobin (Bld) [Mass/Vol] 12.7 g/dL Normal 12.0-16.0 [facility] Comment on above: Performed By: #### I NFLUAB #### [facility] [address] [address] [address] Benito Dupree IG # 0.06 10e3/ul Critically high 0.00-0.03 [facility] Comment on above: Performed By: #### I NFLUAB #### [facility] [address] [address] [address] Benito Dupree IG % 0.4 % Normal 0.0-0.5 [facility] Comment on above: Performed By: #### I NFLUAB #### [facility] [address] [address] [address] Benito Dupree LYMPH # 1.9 103/ul Normal 1.2-3.8 [facility] Comment on above: Performed By: #### I NFLUAB #### [facility] [address] [place] [address] Dr. Benito Dupree Lymphocytes/100 WBC (Bld) 13.9 % Critically low 20.5-60.0 [facility] Comment on above: Performed By: #### I NFLUAB #### [facility] [address] [place] [address] Dr. Benito Dupree MANUAL DIFF REQ NO Normal [facility] Comment on above: Performed By: #### I NFLUAB #### [facility] [address] [place] [address] Dr. Benito Dupree MCH (RBC) [Entitic mass] 24.7 pg Critically low 26.7-34.0 [facility] Comment on above: Performed By: #### I NFLUAB #### [facility] [address] [address] [address] Benito Dupree MCHC (RBC) [Mass/Vol] 30.6 g/dL Normal 29.9-35.2 [facility] Comment on above: Performed By: #### I NFLUAB #### [facility] [address] [place] [address] Dr. Benito Dupree MCV (RBC) [Entitic vol] 80.6 fL Critically low 81.0-99. 0 [facility] Comment on above: Performed By: #### I NFLUAB #### [facility] [address] [address] [address] Benito Dupree MONO # 0.5 103/ul Normal 0.3-0.8 [facility] Comment on above: Performed By: #### I NFLUAB #### [facility] [address] [place] [address] Dr. Benito Dupree Monocytes/100 WBC (Bld) 4.0 % Normal 1.7-12.0 [facility] Comment on above: Performed By: #### I NFLUAB #### [facility] [address] [place] [address] Dr. Benito Dupree NEUT # 10.6 103/ul Critically high 1.4-6.5 [facility] Comment on above: Performed By: #### I NFLUAB #### [facility] [address] [place] [address] Dr. Benito Dupree Neutrophils/100 WBC (Bld) 79.2 % Critically high 43.0-75.0 [facility] Comment on above: Performed By: #### I NFLUAB #### [facility] [address] [place] [address] Dr. Benito Dupree Platelet mean volume (Bld) [Entitic vol] 9.3 fL Critically low 9.5-13.5 [facility] Comment on above: Performed By: #### I NFLUAB #### [facility] [address] [place] [address] Dr. Benito Dupree PLT 391 103/ul Normal 150-450 [facility] Comment on above: Performed By: #### I NFLUAB #### [facility] [address] [place] [address] Dr. Benito Dupree RBC 5.15 106/ul Normal 4.20-5.40 [facility] Comment on above: Performed By: #### I NFLUAB #### [facility] [address] [place] [address] Dr. Benito Dupree WBC 13.4 103/ul Critically high 4.0-11.0 [facility] Comment on above: Performed By: #### I NFLUAB #### [facility] [address] [address] [address] ABD/PELV W CONon [...] WESTLEY JHA Date: 2022-06-01 14:59 Normal [facility] ER URINE PROFILEon 2 Bilirubin Ql (U) Negative Normal NEGATIVE [facility] Comment on above: Performed By: #### U MICRO, ERUR #### [facility] [address] [address] [address] Benito Dupree Clarity (U) SL CLOUDY Abnormal CLEAR [facility] Comment on above: Performed By: #### U MICRO, ERUR #### [facility] [address] [address] [address] Benito Dupree Color (U) YELLOW Normal YELLOW [facility] Comment on above: Performed By: #### U MICRO, ERUR #### [facility] [address] [address] [address] Benito BERG A micrscopic examination will be performed if indicated. Normal [facility] Comment on above: Performed By: #### U MICRO, ERUR #### [facility] [address] [address] [address] Benito Dupree Glucose Ql (U) Negative Normal NEGATIVE [facility] Comment on above: Performed By: #### U MICRO, ERUR #### [facility] [address] [address] [address] Benito Dupree Hemoglobin Ql (U) LARGE Abnormal NEGATIVE [facility] Comment on above: Performed By: #### U MICRO, ERUR #### [facility] [address] [address] [address] Benito Dupree Ketones Ql (U) Negative Normal NEGATIVE [facility] Comment on above: Performed By: #### U MICRO, ERUR #### [facility] [address] [address] [address] Benito Dupree LEUKOCYTES Negative Normal NEGATIVE [facility] Comment on above: Performed By: #### U MICRO, ERUR #### [facility] [address] [address] [address] Benito Dupree Nitrite Ql (U) Negative Normal NEGATIVE [facility] Comment on above: Performed By: #### U MICRO, ERUR #### [facility] [address] [address] [address] Benito Dupree pH (U) 5.5 [pH] Normal 5-9 [facility] Comment on above: Performed By: #### U MICRO, ERUR #### [facility] [address] [address] [address] Benito Dupree SPEC GRAVITY 1.010 Normal 1.005-<=1.02 5 [facility] Comment on above: Performed By: #### U MICRO, ERUR #### [facility] [address] [address] [address] Benito Dupree UA PROTEIN TRACE Normal NEGATIVE/ TRACE [facility] Comment on above: Performed By: #### U MICRO, ERUR #### [facility] [address] [address] [address] Benito Dupree UR MICRO IND INDICATED Normal [facility] Comment on above: Performed By: #### U MICRO, ERUR #### [facility] [address] [place] [address] Dr. Benito Dupree Urobilinogen Qn (U) 1.0 {Tuyet'U}/dL Normal 0.2 - 1. 0 [facility] Comment on above: Performed By: #### U MICRO, ERUR #### [facility] [address] [address] [address] Benito Dupree LACTATE/LACTIC ACIDon 2021 Lactate [Moles/Vol] 1.1 mmol/L Normal 0.4-1.9 [facility] Comment on above: Performed By: #### L ACT #### [facility] [address] [place] [address] Dr. Benito Dupree LIPASEon 06-01-2022 Lipase [Catalytic activity/Vol] 111.0 U/L Normal 73.0-393.0 [facility] Comment on above: Performed By: #### I NFLUAB #### [facility] [address] [place] [address] Dr. Benito Dupree PREG HCG QUALon 06-01-2022 , QUAL Negative Normal NEGATIVE [facility] Comment on above: Performed By: #### P REG #### [facility] [address] [place] [address] Dr. Benito Dupree PROF 14(COMP METB)on 022 Albumin [Mass/Vol] 3.6 g/dL Normal 3.4-5.0 [facility] Comment on above: Performed By: #### I NFLUAB #### [facility] [address] [place] [address] Dr. Benito Dupree Albumin/Globulin [Mass ratio] 0.7 {ratio} Normal [facility] Comment on above: Performed By: #### I NFLUAB #### [facility] [address] [address] [address] Benito Dupree ALP [Catalytic activity/Vol] 90 U/L Normal 46-116 [facility] Comment on above: Performed By: #### I NFLUAB #### [facility] [address] [address] [address] Benito Dupree ALT [Catalytic activity/Vol] 39 U/L Normal 14-59 [facility] Comment on above: Performed By: #### I NFLUAB #### [facility] [address] [address] [address] Benito Dupree Anion gap [Moles/Vol] 13.0 mmol/L Normal Th [facility] Comment on above: Performed By: #### I NFLUAB #### [facility] [address] [place] [address] Dr. Benito Dupree AST [Catalytic activity/Vol] 25 U/L Normal 15-37 [facility] Comment on above: Performed By: #### I NFLUAB #### [facility] [address] [place] [address] Dr. Benito Dupree Bilirubin [Mass/Vol] 1.1 mg/dL Critically high 0.2-1.0 [facility] Comment on above: Performed By: #### I NFLUAB #### [facility] [address] [place] [address] Dr. Benito Dupree Calcium [Mass/Vol] 9.4 mg/dL Normal 8.5-10.1 [facility] Comment on above: Performed By: #### I NFLUAB #### [facility] [address] [place] [address] Dr. Benito Dupree Chloride [Moles/Vol] 99 mmol/L Normal 98-107 [facility] Comment on above: Performed By: #### I NFLUAB #### [facility] [address] [address] [address] Benito Dupree CO2 [Moles/Vol] 27.3 mmol/L Normal 21.0-32.0 [facility] Comment on above: Performed By: #### I NFLUAB #### [facility] [address] [address] [address] Benito Dupree Creatinine [Mass/Vol] 0.87 mg/dL Normal 0.55-1.02 [facility] Comment on above: Performed By: #### I NFLUAB #### [facility] [address] [address] [address] Benito Dupree EGFR-AF UKRAINIAN >60 Normal >=60 [facility] Comment on above: Performed By: #### I NFLUAB #### [facility] [address] [address] [address] Benito Dupree EGFR-NON AF UKRAINIAN >60 Normal >=60 [facility] Comment on above: Performed By: #### I NFLUAB #### [facility] [address] [address] [address] Benito Dupree Globulin (S) [Mass/Vol] 4.8 g/dL Normal [facility] Comment on above: Performed By: #### I NFLUAB #### [facility] [address] [address] [address] Benito Dupree Glucose [Mass/Vol] 218 mg/dL Critically high 74-106 [facility] Comment on above: Performed By: #### I NFLUAB #### [facility] [address] [place] [address] Dr. Benito Dupree Potassium [Moles/Vol] 4.1 mmol/L Normal 3.5-5.1 [facility] Comment on above: Performed By: #### I NFLUAB #### [facility] [address] [place] [address] Dr. Benito Dupree Protein [Mass/Vol] 8.4 g/dL Critically high 6.4-8.2 [facility] Comment on above: Performed By: #### I NFLUAB #### [facility] [address] [place] [address] Dr. Benito Dupree Sodium [Moles/Vol] 135 mmol/L Critically low 136-145 [facility] Comment on above: Performed By: #### I NFLUAB #### [facility] [address] [place] [address] Dr. Benito Dupree Urea nitrogen [Mass/Vol] 15.0 mg/dL Normal 7.0-18.0 [facility] Comment on above: Performed By: #### I NFLUAB #### [facility] [address] [place] [address] Dr. Benito Dupree Urea nitrogen/Creatinine [Mass ratio] 17.2 mg/mg Normal [facility] Comment on above: Performed By: #### I NFLUAB #### [facility] [address] [address] [address] Benito Dupree URINE MICROSCOPIC ONLYon BACTERIA TRACE Abnormal NONE SEEN [facility] Comment on above: Performed By: #### U MICRO, ERUR #### [facility] [address] [place] [address] Dr. Benito Dupree Bacteria identified Cx Nom (U) NOT INDICATED Normal [facility] Comment on above: Performed By: #### U MICRO, ERUR #### [facility] [address] [place] [address] Dr. Benito Dupree CAST NONE SEEN Normal NONE SEEN [facility] Comment on above: Performed By: #### U MICRO, ERUR #### [facility] [address] [place] [address] Dr. Benito Dupree Crystals LM Nom (Urine sed) NONE SEEN Normal NONE SEEN [facility] Comment on above: Performed By: #### U MICRO, ERUR #### [facility] [address] [place] [address] Dr. Benito Dupree Epithelial cells LM Ql (Urine sed) MODERATE Abnormal NONE SEEN /RARE [facility] Comment on above: Performed By: #### U MICRO, ERUR #### [facility] [address] [address] [address] Benito Dupree MUCOUS TRACE Abnormal NONE SEEN [facility] Comment on above: Performed By: #### U MICRO, ERUR #### [facility] [address] [place] [address] Dr. Benito Dupree RBC 2-5 Abnormal 0-2 [facility] Comment on above: Performed By: #### U MICRO, ERUR #### [facility] [address] [address] [address] Benito Dupree WBC 0-2 Abnormal NONE SEEN [facility] Comment on above: Performed By: #### U MICRO, ERUR #### [facility] [address] [address] [address] Benito Dupree XR hand RT min 3V*on 022 XR hand RT min 3V* [facility] [email or web address]) Other XR hand RT min 3V* [facility] [employer] Other XR hand RT min 3V* [address] [place] [address] [email or web address]) Other XR hand RT min 3V* [place] [address] [email or web address]) Other XR hand RT min 3V* XRay Report [employer] [email or web address]) Other XR hand RT min 3V* Signed [email or web address]) Other XR hand RT min 3V* Patient: Kyung Paul MR#: [id number] [email or web address] Other XR hand RT min 3V* : 1990 Acct:[id number] [email or web address]) Other XR hand RT min 3V* Age/Sex: 31 / F ADM Date: 03/22/22 [email or web address]) Other XR hand RT min 3V* Loc: XDUCLY Room: Type: REG CLI [email or web address]) Other XR hand RT min 3V* Attending Dr: Monique SANDOVAL [email or web address]) Other XR hand RT min 3V* Ordering Provider: LORI Dias [email or web address]) Other XR hand RT min 3V* Date of Service: 03/22/22 [email or web address] Other XR hand RT min 3V* XR/XR hand RT min 3V*: Finger pain, right [email or web address]) Other XR hand RT min 3V* Copies to: JOSEMANUEL DiasC [email or web address]) Other XR hand RT min 3V* 3 viewsRIGHT hand plain film [email or web address]) Other XR hand RT min 3V* COMPARISON:None [facility] [employer] Other XR hand RT min 3V* HISTORY:Fell going upstairs. RIGHT ring finger injury. [email or web address] Other XR hand RT min 3V* No fracture, dislocation or focal soft tissue abnormality seen. [email or web address]) Other XR hand RT min 3V* XR/XR hand RT min 3V* [email or web address] Other XR hand RT min 3V* IMPRESSION:No acute findings [email or web address] Other XR hand RT min 3V* Impression dictated by: Ta Galvan M.D.03/22/2022 4:42 PM [email or web address]) Other XR hand RT min 3V* Dictation Location: [place] [address] [email or web address]) Other XR hand RT min 3V* Transcribed By: DANIELLE 03/22/22 [facility] [email or web address]) Other XR hand RT min 3V* Dictated By: Ta Galvan DO 03/22/22 [facility] [email or web address]) Other XR hand RT min 3V* Signed By: [email or web address]) Other XR hand RT min 3V* 03/22/22 [facility] [employer] Other Vital Signs Date Time Vital Sign Value Performing Clinician Facility 10-04-2024 14:48-0500 Body height 157.5 cm Pato Koehler DPM Work Phone: [facility] 10-04-2024 14:48-0500 Body mass index (BMI) [Ratio] 56.7 kg/m2 Pato Koehler DPM Work Phone: [facility] 10-04-2024 14:48-0500 Body weight 140.62 kg Pato Koehler DPM Work Phone: [facility] 10-04-2024 14:48-0500 Diastolic blood pressure 79 mm[Hg] Pato Koehler DPM Work Phone: [facility] 10-04-2024 14:48-0500 Heart rate 82 /min Pato Koehler DPM Work Phone: [facility] 10-04-2024 14:48-0500 Systolic blood pressure 129 mm[Hg] Pato Koehler DPM Work Phone: [facility] 09-20-2024 14:37-0400 Body height 157.5 cm Pato Koehler DPM Work Phone: [facility] 09-20-2024 14:37-0400 Body mass index (BMI) [Ratio] 56.7 kg/m2 Pato Koehler DPM Work Phone: [facility] 09-20-2024 14:37-0400 Body weight 140.62 kg Pato Koehler DPM Work Phone: [facility] 09-20-2024 14:37-0400 Diastolic blood pressure 77 mm[Hg] Pato Koehler DPM Work Phone: [facility] 09-20-2024 14:37-0400 Heart rate 79 /min Pato Koehler DPM Work Phone: [facility] 09-20-2024 14:37-0400 Systolic blood pressure 126 mm[Hg] Pato Koehler DPM Work Phone: [facility] 09-13-2024 14:46-0400 Body height 157.5 cm Pato Koehler DPM Work Phone: [facility] 09-13-2024 14:46-0400 Body mass index (BMI) [Ratio] 56.7 kg/m2 Pato Koehler DPM Work Phone: [facility] 09-13-2024 14:46-0400 Body weight 140.62 kg Pato Koehler DPM Work Phone: [facility] 09-13-2024 14:46-0400 Diastolic blood pressure 78 mm[Hg] Pato Koehler DPM Work Phone: [facility] 09-13-2024 14:46-0400 Heart rate 85 /min Pato Koehler DPM Work Phone: [facility] 09-13-2024 14:46-0400 Systolic blood pressure 123 mm[Hg] Pato Koehler DPM Work Phone: [facility] 08-30-2024 14:58-0400 Body height 157.5 cm Pato Koehler DPM Work Phone: [facility] 08-30-2024 14:58-0400 Body mass index (BMI) [Ratio] 56.7 kg/m2 Pato Brown DPM Work Phone: [facility] 08-30-2024 14:58-0400 Body weight 140.62 kg Pato Koehler DPM Work Phone: [facility] 08-30-2024 14:58-0400 Diastolic blood pressure 80 mm[Hg] Pato Koehler DPM Work Phone: [facility] 08-30-2024 14:58-0400 Heart rate 75 /min Pato Brown DPM Work Phone: [facility] 08-30-2024 14:58-0400 Respiratory rate 18 /min Pato Koehler DPM Work Phone: [facility] 08-30-2024 14:58-0400 Systolic blood pressure 128 mm[Hg] Pato Brown DPM Work Phone: [facility] 05-16-2024 15:25-0400 Diastolic blood pressure 70 mm[Hg] [employer] Monique Emmanuel Work Phone: [facility] 05-16-2024 15:25-0400 Heart rate 80 /min [employer] Monique Whitleymer Work Phone: [facility] 05-16-2024 15:25-0400 Respiratory rate 22 /min [employer] Monique Emmanuel Work Phone: [facility] 05-16-2024 15:25-0400 SaO2% (BldA) [Mass fraction] 94 % [employer] Monique Emmanuel Work Phone: [facility] 05-16-2024 15:25-0400 Systolic blood pressure 124 mm[Hg] [employer] Monique Emmanuel Work Phone: [facility] 05-16-2024 12:57-0400 Body temperature 98.6 [degF] [employer] Monique Emmanuel Work Phone: [facility] 05-16-2024 12:57-0400 Inhaled oxygen flow rate 6 L/min [employer] Monique Emmanuel Work Phone: [facility] 05-16-2024 10:38-0400 Body mass index (BMI) [Ratio] 56.5 kg/m2 [employer] Monique Emmanuel Work Phone: [facility] 05-16-2024 10:31-0400 Body height 157.48 cm [employer] Monique Emmanuel Work Phone: [facility] 05-16-2024 10:31-0400 Body weight 140.16 kg [employer] Monique Whitleymer Work Phone: [facility] 04-25-2024 13:27-0400 Diastolic blood pressure 85 mm[Hg] [...] Hospital 02-27-2024 17:36-0400 Body height 154.94 cm [employer] Monique Emmanuel Work Phone: [facility] 02-27-2024 17:36-0400 Body mass index (BMI) [Ratio] 58.4 kg/m2 [employer] Monique Emmanuel Work Phone: [facility] 02-27-2024 17:36-0400 Body temperature 97.7 [degF] [employer] Monique Emmanuel Work Phone: [facility] 02-27-2024 17:36-0400 Body weight 140.38 kg [employer] Monique Emmanuel Work Phone: [facility] 02-27-2024 17:36-0400 Heart rate 87 /min [employer] Monique Emmanuel Work Phone: [facility] 02-27-2024 17:36-0400 Respiratory rate 18 /min [employer] Monique Emmanuel Work Phone: [facility] 02-27-2024 17:36-0400 SaO2% (BldA) [Mass fraction] 97 % [employer] Monique Emmanuel Work Phone: [facility] 03-22-2022 16:45-0400 Body height 154.94 cm Monique Suemond Other [email or web address]) Other 03-22-2022 16:45-0400 Body mass index (BMI) [Ratio] 58.38 kg/m2 Monique Suemond Other [email or web address] Other 03-22-2022 16:45-0400 Body temperature 97.9 [degF] Monique Dudley Other [email or web address] Other 03-22-2022 16:45-0400 Body weight 140.16 kg Monique Dudley Other [email or web address] Other 03-22-2022 16:45-0400 Diastolic blood pressure 93 mm[Hg] Monique Suemond Other [email or web address] Other 03-22-2022 16:45-0400 Respiratory rate 20 /min Monique Suemond Other [email or web address] Other 03-22-2022 16:45-0400 SaO2% (BldA) [Mass fraction] 98 % Monique Dudley Other [email or web address] Other 03-22-2022 16:45-0400 Systolic blood pressure 154 mm[Hg] Monique Dudley Other [email or web address]) Other Encounters Encounter Date Encounter Type Care Provider Facility Start: 10-04-2024 End: 10-04-2024 Postop follow up visit related to original px Pato Elizabeth Rodo DPM Work Phone: [facility] Comment on above: 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); Contracture of right ankle; Stress fracture of right foot, initial encounter Start: 10-04-2024 End: 10-04-2024 ambulatory PATO KOEHLER Not Available Start: 10-04-2024 End: 10-04-2024 Bamboo flowsheet Pato Koehler DPM Work Phone: [facility] Start: 10-04-2024 End: 10-04-2024 Bamboo flowsheet Pato Koehler DPM Work Phone: [facility] Start: 09-20-2024 End: 09-20-2024 Postop follow up visit related to original px Pato Koehler DPM Work Phone: [facility] Comment on above: 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); Contracture of right ankle Start: 09-20-2024 End: 09-20-2024 ambulatory PATO KOEHLER Not Available Start: 09-20-2024 End: 09-20-2024 Bamboo flowsheet Pato Koehler DPM Work Phone: [facility] Start: 09-20-2024 End: 09-20-2024 Bamboo flowsheet Pato Koehler DPM Work Phone: [facility] Start: 09-13-2024 End: 09-13-2024 Postop follow up visit related to original px Pato Koehler DPM Work Phone: [facility] Comment on above: 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); Contracture of right ankle; Type 2 diabetes mellitus without complication, 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 computer operator insulin use (CMS/[facility]) Start: 09-13-2024 End: 09-13-2024 ambulatory PATO KOEHLER Not Available Start: 09-07-2024 End: 09-07-2024 Telephone encounter Pato Koehler DPM Work Phone: [facility] Start: 09-05-2024 End: 09-05-2024 Lab Drop off Pato Koehler [facility] Start: 09-05-2024 End: 09-05-2024 ambulatory DPM Pato Koehler Facility:[facility] Start: 08-30-2024 End: 08-30-2024 Office outpatient visit 25 minutes Pato Koehler DPM Work Phone: [facility] Comment on above: 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); Type 2 diabetes mellitus without complication, 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 computer operator insulin use (CMS/[facility]); Heel spur, left; Plantar fasciitis; Contracture of left ankle; Contracture of right ankle Start: 08-30-2024 End: 08-30-2024 ambulatory PATO KOEHLER Not Available Start: 08-30-2024 End: 08-30-2024 Bamboo flowsheet Pato Koehler DPM Work Phone: [facility] Start: 08-30-2024 End: 08-30-2024 Bamboo flowsheet Pato Koehler DPM Work Phone: [facility] Start: 08-02-2024 End: 08-02-2024 ambulatory [...] 05-16-2024 Admission to same day surgery center [employer] Monique Emmanuel Work Phone: [facility] [place] Start: 05-16-2024 End: 05-16-2024 ambulatory [employer] Monique Emmanuel Work Phone: [facility] Work Phone: Start: 05-03-2024 End: 05-03-2024 ambulatory PATO KOEHLER Not Available Start: 04-25-2024 ambulatory Pato Koehler Facili ty:[facility] Start: 04-25-2024 End: 04-25-2024 ambulatory DPM Pato Koehler Facility:[facility] Start: 04-25-2024 End: 04-25-2024 Patient encounter procedure Pato Koehler [facility] Start: 04-16-2024 End: 05-10-2024 Pre-admission assessment Pato Koehler [facility] Start: 04-12-2024 End: 04-12-2024 ambulatory PATO KOELHER Not Available Start: 03-29-2024 End: 03-29-2024 ambulatory PATO KOEHLER Not Available Start: 02-27-2024 End: 02-27-2024 ambulatory [employer] Monique Emmanuel Work Phone: [facility] Work Phone: Start: 02-27-2024 End: 02-27-2024 Patient encounter procedure [employer] Monique Emmanuel Work Phone: [facility] Work Phone: [...] medical examination without abnormal findings MONIQUE EMMANUEL [facility] Start: 08-18-2022 End: 08-19-2022 ambulatory MONIQUE EMMANUEL Facility:[facility] Start: 08-18-2022 End: 08-19-2022 Encounter for general adult medical examination without abnormal findings MONIQUE EMMANUEL Facility:[facility] Start: 06-01-2022 End: 06-01-[address] WESTLEY JHA Facility:[facility] Start: 03-22-2022 End: 03-22-2022 ambulatory Monique Dudley Other [email or web address] Other Start: 03-22-2022 Office outpatient vi sit 15 minutes Monique Dudley [facility] Procedures Date Procedure Procedure Detail Performing Clinician Start: 05-16-2024 Debridement [employer] Shruti Emmanuel Work Phone: Start: 05-16-2024 X-ray of left foot [employer] Monique Emmanuel Work Phone: Start: 02-27-2024 Plain X-ray of right shoulder [employer] Monique Emmanuel Work Phone: Cholecystectomy Pato pulliam Plan of Treatment Date Care Activity Detail Author Start: 10-04-2024 End: 10-04-2024 Patient encounter procedure 10/04/2024 2:40 PM EST Office Visit [facility] [address] [place] [address] Pato Koehler DPM [address] [address] 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); Contracture of right ankle [facility] Comment on above: 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); Contracture of right ankle Start: 09-20-2024 End: 09-20-2024 Patient encounter procedure 09/20/2024 2:40 PM EDT Office Visit [facility] [address] [facility] [address] [place] [address] Pato Koehler DPM [address] [address] 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); Contracture of right ankle [facility] Comment on above: 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); Contracture of right ankle Start: 09-13-2024 End: 09-13-2024 Patient encounter procedure 09/13/2024 3:20 PM EDT Office Visit [facility] [address] [address] Pato Koehler DPM [address] [address] [facility] Start: 09-12-2024 End: 09-12-2024 Patient encounter procedure 09/12/2024 3:00 PM EDT Office Visit [facility] [address] [place] [address] Pato Koehler DPM [address] [address] [facility] Start: 09-05-2024 End: 09-05-2024 Patient encounter procedure 09/05/2024 7:30 AM EDT Procedure Visit [facility] Pato Koehler DPM [address] [address] [facility] Start: 08-30-2024 End: 08-30-2024 Patient encounter procedure 08/30/2024 2:50 PM EDT Office Visit [facility] [address] 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 Start: 05-16-2024 [facility] MR Foot - right WO contrast MR foot right wo IV contrast Imaging Routine Stress fracture of right foot, initial encounter Ordered: 10/04/2024 [facility] Work Phone: Comment on above: Ordered: 10/04/2024 Patient Education Know your Meds [facility] Work Phone: XR Foot - right 3 Views XR foot 3+ views right Imaging Routine Accessory navicular bone of right foot 09/13/2024 3:04 PM EDT [facility] Work Phone: Immunizations Immunization Date Immunization Notes Care Provider Fa [facility] 07-19-2002 hepatitis B vaccine, pediatric or pediatric/adolescent dosage Pato Koehler DPM Work Phone: [facility] 07-19-2002 measles, mumps and rubella virus vaccine Pato Koehler DPM Work Phone: [facility] 04-16-1993 diphtheria, tetanus toxoids and pertussis vaccine Pato Koehler DPM Work Phone: [facility] 04-16-1993 trivalent poliovirus vaccine, live, oral Pato Koehler DPM Work Phone: [facility] 05-18-1990 haemophilus influenz ae type b vaccine, conjugate unspecified formulation Pato Koehler DPM Work Phone: [facility] 10-13-1989 diphtheria, tetanus toxoids and pertussis vaccine Pato Koehler DPM Work Phone: [facility] 10-13-1989 measles, mumps and rubella virus vaccine Pato Koehler DPM Work Phone: [facility] 10-13-1989 trivalent poliovirus vaccine, live, oral Pato Koehler DPM Work Phone: [facility] 05-11-1989 diphtheria, tetanus toxoids and pertussis vaccine Pato Koehler DPM Work Phone: [facility] 03-17-1989 diphtheria, tetanus toxoids and pertussis vaccine Pato Koehler DPM Work Phone: [facility] 03-17-1989 trivalent poliovirus vaccine, live, oral Pato Koehler DPM Work Phone: [facility] 1988 diphtheria, tetanus toxoids and pertussis vaccine Pato Koehler DPM Work Phone: [facility] 1988 trivalent poliovirus vaccine, live, oral Pato Koehler DPM Work Phone: [facility] Payers Date Payer Category Payer Self-pay [id number] 2020 [facility] [id number] 2020 Unknown BCBS BCBS xxxxxx [id number] 2020-Present [phone] [address] [place] [address] [id number]. [id number] 1988 Unknown [id number] 2.16.840.1.163164.3.579. 2.593 1988 Unknown [id number] 2.16.840.1.794870.3.579. 2.593 1988 Unknown [id number] 2.16.840.1.636545.3.579. 2.593 1988 Unknown [id number] 2.16.840.1.328479.3.579. 2.593 1988 Unknown [id number] 2.16.840.1.352117.3.579. 2.593 1988 Unknown [id number] 2.16.840.1.343310.3.579. 2.593 1988 Unknown [id number] 2.16.840.1.810163.3.579. 2.593 1988 Unknown [id number] 2.16.840.1.127726.3.579. 2.593 1988 Unknown [id number] 2.16.840.1.030411.3.579. 2.727 1988 Unknown [id number] 2.16.840.1.635997.3.579. 2.1259 1988 Unknown [id number] 2.16.840.1.960750.3.579. 2.1258 1988 Unknown [id number] 2.16.840.1.411486.3.579. 2.1258 1988 Unknown [id number] 2.16.840.1.824227.3.579. 2.1258 1988 Unknown [id number] 2.16.840.1.114631.3.579. 2.1258 1988 Unknown [id number] 2.16.840.1.344153.3.579. 2.1258 1988 Unknown [id number] 2.16.840.1.311907.3.579. 2.727 1988 Unknown [id number] 2.16.840.1.508106.3.579. 2.1258 1988 Unknown [id number] 2.840.1.560190.3.579. 2.1258 1988 Unknown [id number] 2.840.1.520714.3.579. 2.1258 1988 Unknown [id number] 2.16.840.1.394171.3.579. 2.1258 1988 Unknown [id number] 2.16.840.1.444996.3.579. 2.1258 1988 Unknown [id number] 2.16.840.1.208571.3.579. 2.1258 1988 Unknown [id number] 2.16.840.1.635637.3.579. 2.1258 1988 Unknown [id number] 2.16.840.1.234439.3.579. 2.1258 1988 Unknown [id number] 2.16.840.1.288247.3.579. 2.1258 1959 [employer] [id number] 2.16.840.1.185542.19 Unknown [id number] 2.16.840.1.844915.3.579. 2.531 Unknown [id number] 2.16840.1.009697.3.579. 2.531 Social History Date Type Detail Facility Unknown if ever smoked [facility] [email or web address]) Other Start: 08-02-2024 End: 09-20-2024 Sex Assigned At [facility] Start: 10-25-2018 End: 03-29-2024 Tobacco smoking status NHIS Never smoked tobacco (finding) [facility] Start: 1990 Sex Assigned At Female [facility] Tobacco smoking status No Smoking Status Entered [...] Assessment Result Facility 04-25-2024 Functional Status No [facility] Clinical Notes 03-22-2022 to 10-04-2024 Pato Koehler [...] History: Past Medical History: Diagnosis Date Diabetes ([facility]) Ear problems GERD (gastroesophageal reflux disease) [...] Pato Koehler DPM documented in this encounter [facility] 09-20-2024 History of Presen t illness [...] History: Past Medical History: Diagnosis Date Diabetes ([facility]) Ear problems GERD (gastroesophageal reflux disease) [...] Pato Koehler DPM documented in this encounter [facility] 09-07-2024 Telephone encount er Note Has been called for possible increase in pain medication and will switch from hydrocodone to oxycodone and sent to [facility] and Ankita [facility] 09-07-2024 Miscellaneous Notes Formattin g of this note might be different from the original. Has been called for possible increase in pain medication and will switch from hydrocodone to oxycodone and sent to [facility] and Ankita documented in this encounter [facility] 08-30-2024 History of Presen t illness [...] History: Past Medical History: Diagnosis Date Diabetes ([facility]) Ear problems GERD (gastroesophageal reflux disease) [...] cool tibia to toes b/l NEURO: 5.07 Rogers Deyanira monofilament test positive to digits and [...] 2 diabetes mellitus without complication, 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 retirement insulin use ([facility]) 3. Heel spur, left 4. Plantar [...] risks, alternatives, benefits, post op complications and terminal computer operator expectations were discussed including but not limited to: infection,bone infection,wound dehiscence hardware failure and irritation,wound dehiscence,delay union/mal union/non union of bone. RSDS,neuroma,duty limitations,DVT/PE, VA,nerve damage, scar, loss of sensation, swelling. Pt [...] Pato Koehler DPM documented in this encounter [facility] 03-22-2022 Evaluation note Encounter Date Diagnosis [...] no improvement in 5 to 7 days. [employer] ([email or web address]) Other Evaluation + Plan note Future Appointments Appointment Date:05/09/2024 07:30:00 AM Scheduled Provider: Location:[facility] Work Phone: Evaluation note* Diagnosis 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 Type 2 diabetes mellitus without complication, 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 computer operator insulin use ([facility]) Heel spur, left Plantar fasciitis Plantar fascial fibromatosis Contracture of left ankle Contracture of right ankle documented in this encounter [facility] HealthcareEvaluation note* Diagnosis 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 documented in this encounter [facility] HealthcareEvaluation note* Diagnosis 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 Contracture of right ankle Type 2 diabetes mellitus without complication, 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 computer operator insulin use ([facility]) documented in this encounter [facility]* Diagnosis 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 Contracture of right ankle documented in this encounter [facility] HealthcareEvaluation note* Diagnosis 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 Contracture of right ankle Stress fracture of right foot, initial encounter documented in this encounter [facility] HealthcareHistory general Narrative - Reported* Type Description Date Medical History Acquired hypothyroidism Medical History vitamin D deficiency Surgical History cholecystectomy Hospitalization History No Hospitalization [employer] Other History of Present illness Narrative* Pato [...] History: Past Medical History: Diagnosis Date Diabetes ([facility]) Ear problems GERD (gastroesophageal reflux disease) [...] 2 diabetes mellitus without complication, 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 computer operator insulin use ([facility]) PLAN Patient to keep dry sterile [...] patient Pato Koehler DPM documented in this [facility] course Narrative No data available for this section [facility] Discharge instructions No data available for this section [facility] Discharge instructions Additional Instructions DISCHARGE INSTRUCTIONS FOR [...] operative site FOLLOW UP Phone numbers: Office [phone] [ ][facility] Work Phone: Progress note No data available [...] bone of right foot Pato Koehler DPM [id number] [address] Referral ID Status Reason Start Date Expiration Date V isits Requested Visits Authorized [id number] Pending Review 09/07/2024 03/06/2025 1 1 Additional [...] and content) DATE CREATED AUTHOR 05/06/2023 [facility] DATE CREATED AUTHOR AUTHOR'S ORGANIZ ATION 04/26/2024 [facility] DATE CREATED AUTHOR AUTHOR'S ORGANIZ ATION 05/25/2024 [facility] DATE CREATED AUTHOR AUTHOR'S ORGANIZ ATION 07/01/2024 [facility] DATE CREATED AUTHOR AUTHOR'S ORGANIZ ATION 09/12/2024 [facility] DATE CREATED AUTHOR AUTHOR'S ORGANIZ ATION 09/13/2024 [facility] DATE CREATED AUTHOR AUTHOR'S ORGANIZ ATION 09/15/2024 [facility] DATE CREATED AUTHOR AUTHOR'S ORGANIZ ATION 10/06/2024 [facility] Care Teams (unrecognized sec [...] Provider Active S tart: February 27, 2024 LOIR Alvarez Primary Care Provider Active Start: February 27, 2024 Team Status: Inactive Member Role Status Dates LORI Alvarez Primary Care Provider Active Start: May 16, 2024 End: May 16, 2024 Pato Koehler DPM Attending Provider Active Start: May 16, 2024 End: May 16, 2024 Pot Runner Relationship Specialty Start Date End Date Erich Garcia MD [address] [place] [phone] PCP - General Family Medicine 07/24/24 Monique Emmanuel MD [address] [place] [phone] Referring Physician Family Medicine 03/29/24 Monique Emmanuel MD [address] [place] [phone] Referring Physician Family Medicine 07/24/24 Jaime Camargo DO [address] [place] [address] Otolaryngology 07/24/24 Pot Runner Relationship Specialty Start Date End Date Erich Garcia MD [address] [place] [phone] PCP - General Family Medicine 07/24/24 Monique Emmanuel MD [address] [place] [phone] Referring Physician Family Medicine 03/29/24 Monique Emmanuel MD [address] [place] [phone] Referring Physician Family Medicine 07/24/24 Jaime Camargo DO [address] [place] [address] Otolaryngology 07/24/24 Pot Runner Relationship Specialty Start Date End Date Erich Garcia MD [address] [place] [phone] PCP - General Family Medicine 07/24/24 Monique Emmanuel MD [address] [place] [phone] Referring Physician Family Medicine 03/29/24 Monique Emmanuel MD [address] [place] [phone] Referring Physician Family Medicine 07/24/24 Jaime Camargo DO [address] [place] [address] Otolaryngology 07/24/24 Pot Runner Relationship Specialty Start Date End Date Erich Garcia MD [address] [place] [phone] PCP - General Family Medicine 07/24/24 Monique Emmanuel MD [address] [place] [phone] Referring Physician Family Medicine 03/29/24 Monique Emmanuel MD [address] [place] [phone] Referring Physician Family Medicine 07/24/24 Jaime Camargo DO [address] [place] [address] Otolaryngology 07/24/24 Pot Runner Relationship Specialty Start Date End Date Erich Garcia MD [address] [place] [phone] PCP - General Family Medicine 07/24/24 Monique Emmanuel MD [address] [place] [phone] Referring Physician Family Medicine 03/29/24 Monique Emmanuel MD [address] [place] [phone] Referring Physician Family Medicine 07/24/24 Jaime Camargo DO [address] [place] [address] Otolaryngology 07/24/24 Pot Runner Relationship Specialty Start Date End Date Erich Garcia MD [address] [place] [phone] PCP - General Family Medicine 07/24/24 Monique Emmanuel MD [address] [place] [phone] Referring Physician Family Medicine 03/29/24 Monique Emmanuel MD [address] [place] [phone] Referring Physician Family Medicine 07/24/24 Jaime Camargo DO [address] [place] [address] Otolaryngology 07/24/24 Goals (unrecognized section and content) [...] BE BASED ON THE PRIMARY CLINICAL RECORDS. [employer] [facility]. provides no warranty or guarantee of the accuracy or completeness of information in this document.
[2024-10-20 22:12] VITALS: BP 153/96; PULSE 101; TEMP 36.8; O2SAT 95; BMI 58.5
--- NOTE | 2024-10-20 22:19 | PC.NURSE ---
complains of right foot pain onset 09/05/2024, this patient had foot surgery([place] procedure) by Dr Koehler at [facility] on 09/05/2024 and follow up with he will be 11/01/2024. this patient said she did have a MRI at [facility] on 10/15/2024 but no results as of yet. this patient rates her right foot pain at rest 8/10 but walking a 10/10, this patient voices no other complaints and shows no signs of distress
--- NOTE | 2024-10-20 22:23 | ED.EXTPRO1 ---
HPI - Extremity Problem General Chief complaint: Extremity Problem, Nontraumatic Stated complaint: FOOT PAIN, RECENT SURGERY Time Seen by Provider: 10/20/24 22:18 Source: patient Mode of arrival: Wheelchair Limitations: no limitations History of Present Illness HPI Narrative: patient had surgery right foot at [facility] 09/02/24/ / . continues to have pain of the foot. Was seen by her surgeon and MRI ordered of the foot this past tuesday. Now presents because of pain of the foot. No fever, drainage or redness. Getting hard to walk. She is diabetic Related Data Home Medications ?Medication ?Instructions ?Recorded ?Confirmed No Known Home Medications 10/20/24 10/20/24 Allergies Allergy/AdvReac Type Severity Reaction Status Date / Time Sulfa (Sulfonamide Allergy Severe Hives Verified 10/20/24 22:11 Antibiotics) Review of Systems ROS Status of ROS 10 or more systems reviewed and unremarkable except as noted in history and below PFSH PFS Social History Little interest or pleasure in doing things: not at all Feeling down, depressed, or hopeless: not at all Exam Constitutional Vital Signs, click to edit/add: Last Vital Signs Temp 98.2 F 10/20/24 22:12 Pulse 94 H 10/20/24 23:31 Resp 19 10/20/24 23:31 BP 134/81 10/20/24 23:31 Pulse Ox 96 10/20/24 23:31 O2 Del Method Room Air 10/20/24 22:12 Common normals: no apparent distress, oriented x3, alert and well nourished [facility] Common normals: normocephalic and head/scalp atraumatic Eye Common normals: PERRL and EOMs intact bilaterally Respiratory Common normals: normal respiratory effort, no retractions, no use of accessory muscles and clear to auscultation bilaterally Cardio Common normals: regular rate, regular rhythm, S1 normal heart sound and S2 normal heart sound Extremity Other: right foot with mild enlargement post op. no erythema or warmth. No drainage. Neuro Common normals: oriented x3, CN's II-XII intact bilaterally, moves all extremities and no focal motor deficits Psych Appearance: grossly normal Course Vital Signs Vital signs: Vital Signs Temperature 98.2 F 10/20/24 22:12 Pulse Rate 101 H 10/20/24 22:12 Respiratory Rate 19 10/20/24 22:12 Blood Pressure 153/96 H 10/20/24 22:12 Pulse Oximetry 95 10/20/24 22:12 Oxygen Delivery Method Room Air 10/20/24 22:12 Temperature 98.2 F 10/20/24 22:12 Pulse Rate 94 H 10/20/24 23:31 Respiratory Rate 19 10/20/24 23:31 Blood Pressure 134/81 10/20/24 23:31 Pulse Oximetry 96 10/20/24 23:31 Oxygen Delivery Method Room Air 10/20/24 22:12 MDM - Extremity (Nontraumatic) MDM Narrative Medical decision making narrative: s/p surgery right foot 09/05/24 at [facility]. Seen in follow up by her surgeon and MRI foot ordered 10/16/24. impression. accessory navicular bone along the posteromedial aspect of the navicular with mild bone marrow edema in the accessory navicular and adjacent medial aaspect of the navicular bone suspicious for mild adjacent stress response No acute fracture. No metatarsal stress fracture moderate tendinopathy with fraying and possible low grade partial thickness tearing of the posterior tibialis tendon near the navicular attachment mild diffuse degenerative changes does have expected elevation of CRP. she is afebrile. Patient informed of the findings and the need to follow up with her surgeon. provided a cam boot and [place] prescription and discharged home Lab Data Labs: Lab Results 10/20/24 Range/Units 22:48 WBC 13.5 H (4.0-11.0) 10^3/uL RBC 4.97 (4.20-5.40) 10^6/uL Hgb 12.7 (12.0-16.0) g/dL Hct 40.7 (36.0-48.0) % MCV 81.9 (81.0-99.0) fL MCH 25.6 L (26.7-34.0) pg MCHC 31.2 (29.9-35.2) g/dL RDW 14.8 (11.0-15.0) % Plt Count 358 (150-450) 10^3/uL MPV 9.4 L (9.5-13.5) fL Neut % (Auto) 71.6 (43.0-75.0) % Lymph % (Auto) 19.9 L (20.5-60.0) % Callahan % (Auto) 4.9 (1.7-12.0) % Eos % (Auto) 2.6 (0.9-7.0) % Baso % (Auto) 0.5 (0.2-2.0) % Neut # (Auto) 9.7 H (1.4-6.5) 10^3/uL Lymph # (Auto) 2.7 (1.2-3.8) 10^3/uL Callahan # (Auto) 0.7 (0.3-0.8) 10^3/uL Eos # (Auto) 0.4 (0.0-0.7) 10^3/uL Baso # (Auto) 0.1 (0.0-0.1) 10^3/uL Abs Immat Gran (auto) 0.07 H (0.00-0.03) 10^3/uL Imm/Tot Granulo (auto) 0.5 (0.0-0.5) % ESR 82 H (<=20) mm/hr Sodium 139 (136-145) mmol/L Potassium 3.4 L (3.5-5.1) mmol/L Chloride 101 (98-107) mmol/L Carbon Dioxide 25.8 (21.0-32.0) mmol/L Anion Gap 15.6 BUN 18.0 (7.0-18.0) mg/dL Creatinine 0.92 (0.55-1.02) mg/dL Est GFR ( Amer) >60 (>=60 mL/min/1.73m^2) Est GFR (Non-Af Amer) >60 (>=60 mL/min/1.73m^2) BUN/Creatinine Ratio 19.6 Glucose 165 H (74-106) mg/dL Calcium 9.4 (8.5-10.1) mg/dL C-Reactive Protein 3.76 H (<=0.50) mg/dL Imaging Data Abdominal x-ray: Radiologist's impression: [email or web address]=#[email or web address]=#[email or web address] Find: Highlight all Match case Current View [email or web address]=#[email or web address]=auto,-13,525 Page: of 2 Current View [email or web address]=#[email or web address]=auto,-13,525 [place] [id number] Patient Name: NOEL ROCHE MRN: [id number] date: 1990 Sex: F Assigned Patient Location: MRI Current Patient Location: MRI Accession/Order Number: [id number] Exam Date: 10/16/2024 09:54 Report Date: 10/18/2024 11:04 At the request of: TIARA AVELAR Procedure: MR foot RT wo con EXAM: MR foot RT wo con HISTORY: Pain and swelling in the right foot. Evaluate for stress fracture. COMPARISON: Right foot x-rays from 03/14/2024. TECHNIQUE: Multiplanar and multisequence imaging of the right foot was performed without contrast. FINDINGS: No acute fracture or dislocation is evident. No metatarsal stress fracture is identified. Motion artifact mildly degrades evaluation on this study. The visualized distal tibia and fibula appear intact on the edge of the [id number] of the sagittal images. There is no OCD lesion involving the talar dome. There is an accessory navicular bone along the posteromedial aspect of the navicular measuring approximately 1.8 x 1.3 cm. There is mild bone marrow edema in the accessory navicular and adjacent medial aspect of the navicular bone suspicious for adjacent stress response. The tarsometatarsal alignment is anatomic. No focal tear of the Lisfranc ligament is identified. There is a bone island in the posterior superior aspect of the calcaneus and in the anterior aspect of the talus. There appears to be mild diffuse joint space narrowing in the midfoot and subtalar joint. No Achilles tendon tear is evident. The peroneal tendons appear intact. There is mild thickening and intermediate signal of the posterior tibialis tendon near the navicular attachment site consistent with moderate tendinopathy and fraying with possible low-grade partial thickness tearing in this area. There is no cystic or solid mass in the region of the tarsal tunnel. There is no acute abnormality involving the plantar fascia. There is a small plantar calcaneal spur. IMPRESSION: 1. There is an accessory navicular bone along the posteromedial aspect of the navicular with mild bone marrow edema in the accessory navicular and adjacent medial aspect of the navicular bone suspicious for mild adjacent stress response. 2. No acute fracture. No metatarsal stress fracture is evident. 3. There is moderate tendinopathy with fraying and possible low-grade partial thickness tearing of the posterior tibialis tendon near the navicular attachment site. 4. Mild diffuse degenerative change involves the midfoot and subtalar joint. Electronically authenticated by: LUPE DARDEN Date: 10/18/2024 11:04 Discharge Plan Discharge Chief Complaint: Extremity Problem, Nontraumatic Clinical Impression: Foot pain, right Patient Disposition: Home, Self-Care Prescriptions / Home Meds: No Action No Known Home Medications Print Language: Turkmen Instructions: Arthralgia (ED) Additional Instructions: follow up with your surgeon next week Referrals: GUERRERO EMMANUEL [Primary Care Provider] - 1 week
[2024-10-20 23:02] LABS: Basophils Absolute Auto 0.1 10^3/uL (0.0-0.1); Basophils Percent Auto 0.5 % (0.2-2.0); Eosinophils Absolute Auto 0.4 10^3/uL (0.0-0.7); Eosinophils Percent Auto 2.6 % (0.9-7.0); Hematocrit 40.7 % (36.0-48.0); Hemoglobin 12.7 g/dL (12.0-16.0); Immature Granulocytes Abs Auto 0.07 10^3/uL (0.00-0.03); Immature Granulocytes Pct Auto 0.5 % (0.0-0.5); Lymphocytes Absolute Auto 2.7 10^3/uL (1.2-3.8); Lymphocytes Percent Auto 19.9 % (20.5-60.0); Mean Corpuscular HGB Conc 31.2 g/dL (29.9-35.2); Mean Corpuscular Hemoglobin 25.6 pg (26.7-34.0); Mean Corpuscular Volume 81.9 fL (81.0-99.0); Mean Platelet Volume 9.4 fL (9.5-13.5); Monocytes Absolute Auto 0.7 10^3/uL (0.3-0.8); Monocytes Percent Auto 4.9 % (1.7-12.0); Neutrophils Absolute Auto 9.7 10^3/uL (1.4-6.5); Neutrophils Percent Auto 71.6 % (43.0-75.0); Platelet Count 358 10^3/uL (150-450); Red Blood Count 4.97 10^6/uL (4.20-5.40); Red Cell Distribution Width 14.8 % (11.0-15.0); White Blood Count 13.5 10^3/uL (4.0-11.0)
[2024-10-20 23:06] LABS: Erythrocyte Sedimentation Rate 82 mm/hr (<=20)
[2024-10-20 23:11] LABS: Anion Gap 15.6; BUN Creatinine Ratio 19.6; C Reactive Protein 3.76 mg/dL (<=0.50); Calcium 9.4 mg/dL (8.5-10.1); Carbon Dioxide 25.8 mmol/L (21.0-32.0); Chloride 101 mmol/L (98-107); Estimated GFR (African America >60 (>=60 mL/min/1.73m^2); Estimated GFR (Non-African Ame >60 (>=60 mL/min/1.73m^2); Glucose 165 mg/dL (74-106); Potassium 3.4 mmol/L (3.5-5.1); Sodium 139 mmol/L (136-145)
[2024-10-20 23:31] VITALS: BP 134/81; PULSE 94; O2SAT 96
[2024-10-20] MEDS: HYDROCODONE/ACET 5-325 MG TABLET 2 TAB PO (23:46)
--- NOTE | 2024-10-20 23:57 | PC.NURSE ---
this patient was given verbal and written discharge orders along with 1 Rx, this patient voices understanding these. at time of discharge this patient voices no concerns and this patient shows no visible signs of distress. i placed a walking boot on to this patient's right foot. I also told patient to not drive any automobile, operate any machine or drink any alcohol with this pain medication and to take a stool softener with this pain medication
== END 2024-10-21 00:01 | disposition home or self-care (01) ==
PROVIDERS: Emergency Provider Internal Medicine; PCP Nurse Practitioner Family
DX: M79.671 Pain in right foot (principal); E11.9 Type 2 diabetes mellitus without complications; Z98.890 Other specified postprocedural states
CPT/HCPCS: 36415; 80048; 85025; 85652; 86140; 99283

== ENCOUNTER 2024-10-26 10:03 | Outpatient (OUT) | payer BC, SELFPAY ==
--- OUTSIDE RECORDS SUMMARY | 2024-10-26 10:08 | XMS_ITS | CCD ---
Author Organization [facility] Care Team Providers Care Talent Acquisition Project Manager Name Role Phone Monique Dudley Unavailable MONIQUE EMMANUEL Attending Unavailable LIEN, MONIQUE Primary Care Unavailable LIEN, MONIQUE Admitting Unavailable LIEN, MONIQUE Admitting Unavailable LIEN, MONIQUE Attending Unavailable LIEN, MONIQEU Consulting Unavailable LIEN, MONIQUE Primary Care Unavailable [...] Consulting Unavailsandra Dudley NP-C Monique Attending Provider [phone] LORI Emmanuel Primary Care Provider [phone] MONIQUE EMMANUEL Primary Care Physician Pato Koehler [...] Unavailable Erich Garcia MD Primary Care Provider [phone] Jaime Camargo DO Unavailable Rodo, DPM Pato [...] Facility (1 source) Egg protein Drug allergy [facility] [employer] Other (1 source) Sulf-[address] [facility] [employer] Other (1 source) Sulfonamides (Antibiotic) Drug allergy (disorder) 3 [facility] (4 sources) Sulfonamides (Antibiotic); Translations: [Sulfa (Sulfonamide Antibiotics)] Allergy to substance 4 [facility] (4 sources) Egg Derived; Translations: [Egg Derived] Allergy to substance 4 [facility] (5 sources) Sulfonamides (Antibiotic); Translations: [sulfa drugs] Drug allergy [facility] (15 sources) Sulfonamides (Antibiotic) Drug Allergy 4 Rash, Hives [facility] Medications Current Medications Medication Drug Class(es) Dates Sig (Normalized) Sig (Original) acetaminophen 325 mg / HYDROcodone bitartrate 5 mg oral tablet (2 sources) Opioid Agonist Start: 08-30-2024 End: 09-04-2024 take 1 tablet by mouth every eight hours as needed for pain HYDROcodone-aceta minophen (Lennox) 5-325 MG tablet Indications: Pain Take 1 tablet by mouth every 8 (eight) hours if needed for moderate pain (PRN pain) for up to 5 days 15 tablet 08/30/2024 09/04/2024 Active acetaminophen 325 mg / oxyCODONE hydrochloride 5 mg oral tablet (3 sources) Opioid Agonist Start: 10-24-2024 End: 10-29-2024 take 1 tablet by mouth every eight hours for pain oxyCODONE-acetami nophen (Percocet) 5-325 MG tablet Indications: Pain Take 1 tablet by mouth every 8 (eight) hours if needed for severe pain for up to 5 days 15 tablet 10/24/2024 10/29/2024 Active Start: 09-07-2024 End: 09-12-2024 take 1 tablet by mouth every eight hours for pain oxyCODONE-acetaminophen (Percocet) 5-325 MG tablet Indications: Pain Take 1 tablet by mouth every 8 (eight) hours if needed for severe pain for up to 5 days 15 tablet 09/07/2024 09/12/2024 Active cholecalciferol 0.125 mg oral tablet (18 sources) Vitamin D Start: 01-30-2024 cholecalciferol (Vitamin D-3) 125 MCG (5000 UT) tablet 1 (one) time each day at the same time 01/30/2024 Active escitalopram 20 mg oral tablet (19 sources) Serotonin Reuptake Inhibitor Start: 04-25-2024 take 20 mg by mouth once daily Escitalopram Oxalate Active 20 MG PO Daily May 16, 2024 12:00am Start: 03-12-2024 Lexapro 10 MG tablet 1 (one) time each day at the same time 03/12/2024 Active metFORMIN hydrochloride 500 mg oral tablet (20 sources) Biguanide Start: 02-27-2024 take 500 mg by mouth twice daily Metformin Active 500 MG PO Twice daily February 27, 2024 12:00am Start: 05-23-2023 metFORMIN (Glu cophage) 500 MG tablet 1 (one) time each day at the same time 05/23/2023 Active omeprazole 20 mg delayed release oral capsule (20 sources) Proton Pump Inhibitor Start: 02-27-2024 omeprazole 20 mg Cap-DR 20 mg = 1 cap(s), Oral, Daily, Refills(s) 0, Control of stomach acid Start Date: 04/25/24 Status: Ordered traZODone hydrochloride 50 mg oral tablet (19 sources) Serotonin Reuptake Inhibitor Start: 05-16-2024 take [...] day at the same time 03/12/2024 Active [place] Sling (3 sources) Start: 02-27-2024 [place] Slin g Active 0 .Route 1 February 27, 2024 12:00am As directed Vitamin D (3 sources) Start: 04-25-2024 Vitamin D Oral , Daily, Refills(s) 0, Prophylaxis Start Date: 04/25/24 Status: Ordered Problems Active Problems Problem Classification Problem Date Documented Date Episodic/Chronic Anxiety disorders (18 sources) Anxiety; Translations: [Anxiety disorder, unspecified] Onset: 07-21-2024 04-25-2024 Chronic Diabetes mellitus without complication (20 sources) Type 2 diabetes mellitus without complications; Translations: [Diabetes mellitus] Onset: 08-25-2022 Chronic Disorders of lipid metabolism (4 sources) Pure hyperglyceridemia; Translations: [PURE HYPERGLYCERIDEMIA] Onset: 11-15-2022 Chronic Esophageal disorders (18 sources) Gastroesophageal reflux disease; Translations: [Gastro-esophageal reflux disease without esophagitis] Onset: 07-21-2024 04-25-2024 Chronic Fracture of lower limb (4 sources) Stress fracture of right foot; Translations: [Stress fracture, right foot, initial encounter for fracture] 10-04-2024 Episodic Nutritional deficiencies (19 sources) Vitamin D deficiency, unspecified; Translations: [Vitamin [...] girdle] Onset: 05-16-2024 Chronic Other congenital anomalies (13 sources) Accessory right tarsal navicular bone; Translations: [...] encounter Onset: 03-22-2022 Resolved: 03-22-2022 Episodic Unclassified (6 sources) Stress fracture of right foot 10-04-2024 Results Test Name Value Interpretation Reference Range Facility Surgical Pathology Reporton 09-12-2024 Surgical Pathology Report [address] [place] [address]- Surgical Pathology Report Collected Date/Time: 09/05/2024 08:32 [...] DIAGNOSIS. Addition of clinical information only. Normal [facility] Comment on above: Performed By: #### 4 [id number] #### [facility] [address] [place] [address] Surgical Pathology Reporton 09-11-2024 [place] [address]- Surgical Pathology Report Collected Date/Time: 09/05/2024 08:32 [...] examination performed unless gross only specified. Normal [facility] Comment on above: Performed By: #### 4 [id number] #### [facility] [address] [place] [address] Basic Metabolic Panelon 04-28 Creatinine Clr Calc Pharmacy 161.75 Normal [facility] Comment on above: Result Comment: PERF ORMED BY: [facility] [address] [place] [address] PATHOLOGIST REAL ESTATE INSPECTOR SIMEON BIGGS M.D. Performed By: #### B MP #### [facility] [address] [place] [address] [place] GFR/1.73 sq M.predicted MDRD (S/P/Bld) [Vol rate/Area] mL/min/{1.73_m2} Normal [facility] Comment on above: Performed By: #### B MP #### [facility] [address] [place] [address] [place] Calcium [Mass/volume] in Ser um or PlasmaOrdered By: Melvin Ruano on 05-16-2024 Calcium [Mass/Vol] 8.8 mg/dL Normal 8.6-10.3 [facility] Comment on above: Performed By: #### B MP #### [facility] [address] Capillary blood glucose jaswinder urement by glucometer (mass/volume)Ordered By: Pato Koehler on 05-16-2024 Glucose [Mass/Vol] 106 mg/dL Normal [facility] Comment on above: Random Glucose Refer ence Range is dependent on time and content of last meal. Glucose of more than 200 mg/dL in a nonstressed, ambulatory subject supports the diagnosis of Diabetes Mellitus. Result Comment: [place] om Glucose Reference Range is dependent on time and content of last meal. Glucose of more than 200 mg/dL in a nonstressed, ambulatory subject supports the diagnosis of Diabetes Mellitus. Performed By: #### G BARAK #### Point of Care testing , Carbon dioxide, total [Moles /volume] in Serum or PlasmaOrdered By: Melvin Ruano on 05-16-2024 CO2 [Moles/Vol] 27.3 mmol/L Normal 21.0-31.0 [facility] Comment on above: Performed By: #### B MP #### [facility] [address] [place] [address] [place] Chloride [Moles/volume] in S nikkie or PlasmaOrdered By: Melvin Ruano on 05-16-2024 Chloride [Moles/Vol] 105 mmol/L Normal 98-107 [facility] Comment on above: Performed By: #### B MP #### [facility] [address] [place] [id number] [place] Creatinine [Mass/volume] in Serum or PlasmaOrdered By: Melvin Ruano on 05-16-2024 Creatinine [Mass/Vol] 0.66 mg/dL Normal 0.60-1.20 [facility] Comment on above: Performed By: #### B MP #### [facility] [address] [place] [id number] [place] Glucose Poct Glucometerson 0 05-16-2024 Commemt1 Glu2: Cleaned Meter Normal [facility] Comment on above: Result Comment: PERF ORMED BY: [place] [address] PATHOLOGIST REAL ESTATE INSPECTOR SIMEON BIGGS M.D. Performed By: #### G LULS #### Point of Care testing , Glucose [Mass/volume] in Ser um or PlasmaOrdered By: Melvin Ruano on 05-16-2024 Glucose [Mass/Vol] 107 mg/dL High 70-100 [facility] Comment on above: ADA recommended refe rence rangeRandom Glucose Reference Range is dependent on time and content of last meal. Glucose of more than 200 mg/dL in a nonstressed, ambulatory subject supports the diagnosis of Diabetes Mellitus. Result Comment: [place] Glucose Reference Range is dependent on time and content of last meal. Glucose of more than 200 mg/dL in a nonstressed, ambulatory subject supports the diagnosis of Diabetes Mellitus. ADA recommended reference range Performed By: #### B MP #### [facility] [address] [place] [address] HCG ( test) IA.rapi d Ql (U)Ordered By: Melvin Ruano on 05-16-2024 HCG ( test) Ql (U) Negative [facility] HCG,Urineon 05-16-2024 Beta HCG ( test) Ql (U) Negative Normal [facility] Comment on above: Result Comment: PERF ORMED BY: [place] [address] PATHOLOGIST REAL ESTATE INSPECTOR SIMEON BIGGS M.D. Performed By: #### U HCG #### [facility] [address] [place] [address] [place] Jason 05-16-2024 L Specimen: [id number] Received: 05/16/24-1256 Status: SOUT Req Num: [id number] Spec Type: Surgical Subm Dr: Pato Koehler DPM Tissues: A Bone Fragments - Other than Path Fracture (ACCESSORY BONE LT FOOT) Procedures: HE, Gross/Micro L3, Decalcification Age/ Patient Sex Location Account Attending Physician Kyung Paul 33/F [place] [id number] Pato Koehler DPM SPEC NUM: [id number] RECD: 05/16/24 STATUS: NAYELIRebekah TINSLEY NUM: [id number] BRUNO: 05/16/24- SUBM DR: Pato Koehler DPM ENTERED: 05/16/24-[address] [facility] [address]: SPEC TYPE: Surgical DEPT: S [...] areas of necrosis or cysts are present. Phys Ther sections are submitted following decalcification in A1. CPT Codes 66580, 20803 Specimen: [id number] Received: 05/16/24 Status: KESHA Demetrius Num: [id number] Spec Type: Surgical Subm Dr: Pato Koehler DPM Tissues: A Bone Fragments - Other than Path Fracture (ACCESSORY BONE LT FOOT) Procedures: HE, Gross/Micro L3, Decalcification Patient: Kyung Paul [id number] (Continued) Signed (signature on file) Tabatha Dupree MD 05/19/24 1640 Normal [facility] No Panel InformationOrdered By: Pato Koehler on 05-16-2024 Bedside Glucose Comment Glu2: cleaned meter [facility] No Panel InformationOrdered By: Melvin Ruano on 05-16-2024 Estimated GFR (CKD-EPI) > 60.0 mL/Min [facility] Creatinine Clearance (Chem 161.75 [facility] Potassium [Moles/volume] in Serum or PlasmaOrdered By: Melvin Ruano on 05-16-2024 Potassium [Moles/Vol] 3.8 mmol/L Normal 3.5-5.1 [facility] Comment on above: Performed By: #### B MP #### [address] Serum or plasma anion gap de terminationOrdered By: Melvin Ruano on 05-16-2024 Anion gap [Moles/Vol] 9.5 mmol/L Normal 6.0-15.0 [facility] Comment on above: Performed By: #### B MP #### [facility] [address] [place] [address] Sodium [Moles/volume] in Ser um or PlasmaOrdered By: Melvin Ruano on 05-16-2024 Sodium [Moles/Vol] 138 mmol/L Normal 136-145 [facility] Comment on above: Performed By: #### B MP #### [facility] [address] [place] [address] Urea nitrogen [Mass/volume] in Serum or PlasmaOrdered By: Melvin Ruano on 05-16-2024 Urea nitrogen [Mass/Vol] 17 mg/dL Normal 7-25 [facility] Comment on above: Performed By: #### B MP #### [address] XR foot LT 2Von 05-16-2024 XR foot LT 2V [facility] [place] [address] [place] [address] XRay Report Signed Patient: Kyung Paul MR#: [id number] : 1990 Acct:[id number] Age/Sex: 33 / F ADM Date: 05/16/24 Loc: [place] Room: Type: [facility] Attending Dr: Pato Koehler DPM Copies to: [...] Leisa Adames M.D.05/16/2024 3:20 PM Dictation Location: [place] [address] Transcribed By: DANIELLE 05/16/24 1520 Dictated By: Leisa Adames MD 05/16/24 1515 Signed By: 05/16/24 152 Normal [facility] CBC w/ Auto Diffon 4 Basophils/100 WBC (Bld) 0.5 % Normal 0.0-2.0 [facility] Comment on above: Performed By: #### 2 [id number] #### [facility] [address] [place] [address] Basophils/Leukocytes Auto (Bld) [Pure # fraction] 0.1 E9/L Normal 0.0-0.2 [facility] Comment on above: Performed By: #### 2 [id number] #### [facility] [address] [place] [address] Eosinophils (Bld) [#/Vol] 0.3 E9/L Normal 0.0-0.5 [facility] Comment on above: Performed By: #### 2 [id number] #### [facility] [address] [place] [address] Eosinophils/100 WBC (Bld) 2.9 % Normal 0.0-8.0 [facility] Comment on above: Performed By: #### 2 [id number] #### [facility] [address] [place] [address] Erythrocyte distribution width (RBC) [Ratio] 15.6 % High 10.9-14.2 [facility] Comment on above: Performed By: #### 2 [id number] #### [facility] [address] [place] [address] Hematocrit (Bld) [Volume fraction] 39.9 % Normal 34.0-46.0 [facility] Comment on above: Performed By: #### 2 [id number] #### [facility] [address] [place] [address] Hemoglobin (Bld) [Mass/Vol] 12.8 g/dL Normal 12.0-16.0 [facility] Comment on above: Performed By: #### 2 [id number] #### [facility] [address] [place] [address] Lymphocytes (Bld) [#/Vol] 2.3 E9/L Normal 1.0-4.0 [facility] Comment on above: Performed By: #### 2 [id number] #### [facility] [address] [place] [address] Lymphocytes/100 WBC (Bld) 20.9 % Normal 14.0-50.0 [facility] Comment on above: Performed By: #### 2 [id number] #### [facility] [address] [place] [address] MCH (RBC) [Entitic mass] 25.4 pg Low 27.0-34.0 [facility] Comment on above: Performed By: #### 2 [id number] #### [facility] [address] [place] [address] MCHC (RBC) [Mass/Vol] 32.2 g/dL Normal 31.4-36.0 [facility] Comment on above: Performed By: #### 2 [id number] #### [facility] [address] [place] [address] MCV (RBC) [Entitic vol] 79.0 fL Low 80.0-100.[address] [facility] Comment on above: Performed By: #### 2 [id number] #### [facility] [address] [place] [address] Monocytes (Bld) [#/Vol] 0.7 E9/L Normal 0.2-1.[address] [facility] Comment on above: Performed By: #### 2 [id number] #### [facility] [address] [place] [address] Neutrophils (Bld) [#/Vol] 7.7 E9/L High 2.0-7.5 [facility] Comment on above: Performed By: #### 2 [id number] #### [facility] [address] [place] [address] Neutrophils/100 WBC (Bld) 69.3 % Normal 36.0-75.0 [facility] Comment on above: Performed By: #### 2 [id number] #### [facility] [address] [place] [address] Platelet mean volume (Bld) [Entitic vol] 8.3 fL Normal 6.4-10.8 [facility] Comment on above: Performed By: #### 2 [id number] #### [facility] [address] [place] [address] Platelets (Bld) [#/Vol] 346.0 E9/L Normal 150.0-500.0 [facility] Comment on above: Performed By: #### 2 [id number] #### [facility] [address] [place] [address] RBC (Bld) [#/Vol] 5.1 E12/L Normal 4.3-5.9 [facility] Comment on above: Performed By: #### 2 [id number] #### [facility] [address] [place] [address] WBC corrected for nucl RBC Auto (Bld) [#/Vol] 11.1 E9/L High 4.0-11.0 [facility] Comment on above: Performed By: #### 2 [id number] #### [facility] [address] [place] [address] Consent for Treatmenton 03-29 Consent for Treatment [id number] #1.00TIFF Normal [facility] HEMATOLOGYOrdered By: SYSTEM SYSTEM on 04-25-2024 [...] Remisol Heme Physician Orderon 04-18-2024 Physician Order [id number] #1.00TIFF Normal [facility] XR shoulder RT min 2V*on XR shoulder RT min 2V* [facility] [place] [address] [place] [address] XRay Report Signed Patient: Kyung Paul MR#: [id number] : 1990 Acct:[id number] Age/Sex: 33 / F ADM Date: 02/27/24 Loc: XDUCLY Room: Type: [facility] Attending Dr: Monique SANDOVAL Copies to: [...] Leisa Adames M.D.02/27/2024 6:14 PM Dictation Location: [place] [address] Transcribed By: [facility] 02/27/241813 Dictated By: Leisa Adames MD 02/27/241812 Signed By: 02/27/241813 Normal [facility] GLYCOHEMOGLOBIN A1Con 2022 ADA RECOMMENDATION SEE BELOW Normal [facility] Comment on above: Result Comment: ADA RECOMMENDED LIMIT 4.0 - 6.0 ADA THERAPEUTIC TARGET < 7.0 ACTION SUGGESTED > 7.0 Performed By: #### A 1C #### [facility] [address] [place] [address] Dr. Benito Dupree Glucose [Mass/Vol] 105 mg/dL Normal [facility] Comment on above: Performed By: #### A 1C #### [facility] [address] [place] [address] Dr. Benito Dupree HbA1c (Bld) [Mass fraction] 5.3 % Normal 4.5-6.2 [facility] Comment on above: Performed By: #### A 1C #### [facility] [address] [place] [address] Dr. Benito Dupree Covid-19 PCR ([facility])on SARS-CoV-2 (COVID-19) RNA MUKUND+probe Ql (Unsp spec) Not detected Normal NOT DETECTED [facility] Comment on above: Result Comment: This test is not yet approved or cleared by the [place] FDA. When there are no FDA-approved or cleared tests available, and other criteria are met, FDA can make tests available under an emergency access mechanism called an Emergency Use Authorization (EUA). The EUA for this test is supported by the [place] of Health and Human Service's (HHS's) declaration [...] SARS-CoV-2. Performed By: #### C VDTBH #### [facility] [address] [place] [address] Dr. Benito Dupree INFLUENZA A AND B AGon 01-05 INFLUANEGH SEE BELOW Normal [facility] Comment on above: Result Comment: Nega tive for Flu A protein angiten. Infection due to Flu A cannot be ruled out. Flu A angiten in the sample may be below the detection limit of the test. Performed By: #### I NFLUAB #### [facility] [address] [place] [address] Dr. Benito Dupree INFLUBNEGH SEE BELOW Normal [facility] Comment on above: Result Comment: Nega tive for Flu B protein antigen. Infection due to Flu B cannot be ruled out. Flu B antigen in the sample may be below the detection limit of the test. Performed By: #### I NFLUAB #### [facility] [address] [place] [address] Dr. Benito Dupree INFLUENZA A AG Negative Normal NEGATIVE SEE COMMENT [facility] Comment on above: Performed By: #### I NFLUAB #### [facility] [address] [place] [address] Dr. Benito Dupree INFLUENZA B AG Negative Normal NEGATIVE SEE COMMENT [facility] Comment on above: Performed By: #### I NFLUAB #### [facility] [address] [place] [address] Dr. Benito Dupree GLYCOHEMOGLOBIN A1Con 2021 ADA RECOMMENDATION SEE BELOW Normal [facility] Comment on above: Result Comment: ADA RECOMMENDED LIMIT 4.0 - 6.0 ADA THERAPEUTIC TARGET < 7.0 ACTION SUGGESTED > 7.0 Performed By: #### A 1C #### [facility] [address] [place] [address] Dr. Benito Dupree Glucose [Mass/Vol] 143 mg/dL Normal [facility] Comment on above: Performed By: #### A 1C #### [facility] [address] [place] [address] Dr. Benito Dupree HbA1c (Bld) [Mass fraction] 6.6 % Critically high 4.5-6.2 [facility] Comment on above: Performed By: #### A 1C #### [facility] [address] [place] [address] Dr. Benito Dupree LIPID PROFILEon 11-15-2022 CHOL-HDL RATIO NORM SEE BELOW Normal [facility] Comment on above: Result Comment: 3.3 - 4.4 LOW RISK 4.4 - 7.1 AVERAGE RISK 7.1 - 11.0 MODERATE RISK >11.0 HIGH RISK Performed By: #### I NFLUAB #### [facility] [address] [place] [address] Dr. Benito Dupree Cholesterol [Mass/Vol] 154 mg/dL Normal <=200 Th [facility] Comment on above: Performed By: #### I NFLUAB #### [facility] [address] [place] [address] [address] Benito Dupree Cholesterol in HDL [Mass/Vol] 29 mg/dL Critically low 40-60 [facility] Comment on above: Performed By: #### I NFLUAB #### [facility] [address] [place] [address] [address] Benito Dupree Cholesterol in LDL [Mass/Vol] 98.2 mg/dL Normal [facility] Comment on above: Performed By: #### I NFLUAB #### [facility] [address] [place] [address] [address] Benito Dupree Cholesterol.total/Lisandra sterol in HDL [Mass ratio] 5.3 {ratio} Normal [facility] Comment on above: Performed By: #### I NFLUAB #### [facility] [address] [place] [address] [address] Benito Dupree HDL NORMAL > or = 60 mg/dl - LOW CARDIOVASCULAR RISK <40 mg/dl - HIGH CARDIOVASCULAR RISK Normal [facility] Comment on above: Performed By: #### I NFLUAB #### [facility] [address] [place] [address] [address] Benito Dupree LDL CALC NORMAL SEE BELOW Normal [facility] Comment on above: Result Comment: <100 mg/dl OPTIMAL 100 - 129 mg/dl NEAR OR ABOVE OPTIMAL 130 - 159 mg/dl BORDERLINE HIGH 160 - 189 mg/dl HIGH >190 mg/dl VERY HIGH Performed By: #### I NFLUAB #### [facility] [address] [place] [address] [address] Benito Dupree Triglyceride [Mass/Vol] 134 mg/dL Normal <=150 T [facility] Comment on above: Performed By: #### I NFLUAB #### [facility] [address] [place] [address] [address] Benito Dupree VLDL CALC 26.8 mg/dL Normal [facility] Comment on above: Performed By: #### I NFLUAB #### [facility] [address] [place] [address] [address] Benito Dupree INSULINon 08-19-2022 Insulin 24.3 uIU/mL Normal 2.6-24.9 [facility] Comment on above: Performed By: #### I NFLUAB #### [facility] [address] [place] [address] Dr. Benito Dupree T4, T3U, FTI LABCORPon 08-19 Free Thyroxine Index 2.6 Normal 1.2-4.9 [facility] Comment on above: Performed By: #### T HYLC #### [facility] [address] [place] [address] Dr. Benito Dupree T3 Uptake 29 % Normal 24-39 [facility] Comment on above: Performed By: #### T HYLC #### [facility] [address] [place] [address] Dr. Benito Dupree T4 [Mass/Vol] 8.8 ug/dL Normal 4.5-12.0 [facility] Comment on above: Performed By: #### T HYLC #### [facility] [address] [place] [address] Dr. Benito Dupree CBC AUTO DIFFon 08-18-2022 BASO # 0.1 103/ul Normal 0.0-0.1 [facility] Comment on above: Performed By: #### I NFLUAB #### [facility] [address] [place] [address] Dr. Benito Dupree Basophils/100 WBC (Bld) 0.8 % Normal 0.2-2.0 [facility] Comment on above: Performed By: #### I NFLUAB #### [facility] [address] [place] [address] Dr. Benito Dupree EO # 0.3 103/ul Normal 0.0-0.7 [facility] Comment on above: Performed By: #### I NFLUAB #### [facility] [address] [place] [address] Dr. Benito Dupree Eosinophils/100 WBC (Bld) 2.8 % Normal 0.9-7.0 [facility] Comment on above: Performed By: #### I NFLUAB #### [facility] [address] [place] [address] Dr. Benito Dupree Erythrocyte distribution width (RBC) [Ratio] 15.4 % Critically high 11.0-15.0 [facility] Comment on above: Performed By: #### I NFLUAB #### [facility] [address] [place] [address] Dr. Benito Dupree Hematocrit (Bld) [Volume fraction] 43.7 % Normal 36.0-48.0 [facility] Comment on above: Performed By: #### I NFLUAB #### [facility] [address] [place] [address] Dr. Benito Dupree Hemoglobin (Bld) [Mass/Vol] 14.2 g/dL Normal 12.0-16.0 [facility] Comment on above: Performed By: #### I NFLUAB #### [facility] [address] [place] [address] Dr. Benito Dupree IG # 0.08 10e3/ul Critically high 0.00-0.03 [facility] Comment on above: Performed By: #### I NFLUAB #### [facility] [address] [place] [address] Dr. Benito Dupree IG % 0.9 % Critically high 0.0-0.5 [facility] Comment on above: Performed By: #### I NFLUAB #### [facility] [address] [place] [address] Dr. Benito Dupree LYMPH # 2.3 103/ul Normal 1.2-3.8 [facility] Comment on above: Performed By: #### I NFLUAB #### [facility] [address] [place] [address] Dr. Benito Dupree Lymphocytes/100 WBC (Bld) 24.3 % Normal 20.5-60.0 [facility] Comment on above: Performed By: #### I NFLUAB #### [facility] [address] [place] [address] Dr. Benito Dupree MANUAL DIFF REQ NO Normal [facility] Comment on above: Performed By: #### I NFLUAB #### [facility] [address] [place] [address] Dr. Benito Dupree MCH (RBC) [Entitic mass] 26.1 pg Critically low 26.7-34.0 [facility] Comment on above: Performed By: #### I NFLUAB #### [facility] [address] [place] [address] Dr. Benito Dupree MCHC (RBC) [Mass/Vol] 32.5 g/dL Normal 29.9-35.2 [facility] Comment on above: Performed By: #### I NFLUAB #### [facility] [address] [place] [address] Dr. Benito Dupree MCV (RBC) [Entitic vol] 80.2 fL Critically low 81.0-99. 0 [facility] Comment on above: Performed By: #### I NFLUAB #### [facility] [address] [place] [address] Dr. Benito Dupree MONO # 0.5 103/ul Normal 0.3-0.8 [facility] Comment on above: Performed By: #### I NFLUAB #### [facility] [address] [place] [address] Dr. Benito Dupree Monocytes/100 WBC (Bld) 5.2 % Normal 1.7-12.0 [facility] Comment on above: Performed By: #### I NFLUAB #### [facility] [address] [place] [address] Dr. Benito Dupree NEUT # 6.1 103/ul Normal 1.4-6.5 [facility] Comment on above: Performed By: #### I NFLUAB #### [facility] [address] [place] [address] Dr. Benito Dupree Neutrophils/100 WBC (Bld) 66.0 % Normal 43.0-75.0 [facility] Comment on above: Performed By: #### I NFLUAB #### [facility] [address] [place] [address] Dr. Benito Dupree Platelet mean volume (Bld) [Entitic vol] 9.9 fL Normal 9.5-13.5 [facility] Comment on above: Performed By: #### I NFLUAB #### [facility] [address] [address] [address] Benito Dupree PLT 291 103/ul Normal 150-450 [facility] Comment on above: Performed By: #### I NFLUAB #### [facility] [address] [address] [address] Benito Dupree RBC 5.45 106/ul Critically high 4.20-5.40 [facility] Comment on above: Performed By: #### I NFLUAB #### [facility] [address] [address] [address] Benito Dupree WBC 9.3 103/ul Normal 4.0-11.0 [facility] Comment on above: Performed By: #### I NFLUAB #### [facility] [address] [place] [address] Dr. Benito Dupree DIRECT LDLon 08-18-2022 Cholesterol in LDL [Mass/Vol] 50 mg/dL Normal [facility] Comment on above: Performed By: #### T HYLC #### [facility] [address] [place] [address] Dr. Benito Dupree DLDL NORMAL SEE BELOW Normal [facility] Comment on above: Result Comment: <100 mg/dl OPTIMAL 100 - 129 mg/dl NEAR OR ABOVE OPTIMAL 130 - 159 mg/dl BORDERLINE HIGH 160 - 189 mg/dl HIGH >190 mg/dl VERY HIGH Performed By: #### T HYLC #### [facility] [address] [place] [address] Dr. Benito Dupree GLYCOHEMOGLOBIN A1Con 2021 ADA RECOMMENDATION SEE BELOW Normal [facility] Comment on above: Result Comment: ADA RECOMMENDED LIMIT 4.0 - 6.0 ADA THERAPEUTIC TARGET < 7.0 ACTION SUGGESTED > 7.0 Performed By: #### A 1C #### [facility] [address] [place] [address] Dr. Benito Dupree Glucose [Mass/Vol] 332 mg/dL Normal [facility] Comment on above: Performed By: #### A 1C #### [facility] [address] [address] [address] Benito Dupree HbA1c (Bld) [Mass fraction] 13.2 % Critically high 4.5-6.2 [facility] Comment on above: Performed By: #### A 1C #### [facility] [address] [place] [address] Dr. Benito Dupree IRONon 08-18-2022 Iron [Mass/Vol] 53.0 ug/dL Normal 50.0-170.0 [facility] Comment on above: Performed By: #### I NFLUAB #### [facility] [address] [place] [address] Dr. Benito Dupree LIPID PROFILEon 08-18-2022 CHOL-HDL RATIO NORM SEE BELOW Normal [facility] Comment on above: Result Comment: 3.3 - 4.4 LOW RISK 4.4 - 7.1 AVERAGE RISK 7.1 - 11.0 MODERATE RISK >11.0 HIGH RISK Performed By: #### T HYLC #### [facility] [address] [place] [address] Dr. Benito Dupree Cholesterol [Mass/Vol] 260 mg/dL Critically high <=200 [facility] Comment on above: Performed By: #### T HYLC #### [facility] [address] [place] [address] Dr. Benito Dupree Cholesterol in HDL [Mass/Vol] 23 mg/dL Critically low 40-60 [facility] Comment on above: Performed By: #### T HYLC #### [facility] [address] [place] [address] Dr. Benito Dupree Cholesterol.total/Lisandra sterol in HDL [Mass ratio] 11.3 {ratio} Normal [facility] Comment on above: Performed By: #### T HYLC #### [facility] [address] [place] [address] Dr. Benito Dupree HDL NORMAL > or = 60 mg/dl - LOW CARDIOVASCULAR RISK <40 mg/dl - HIGH CARDIOVASCULAR RISK Normal [facility] Comment on above: Performed By: #### T HYLC #### [facility] [address] [place] [address] Dr. Benito Dupree Triglyceride [Mass/Vol] 1711 mg/dL Critically high <=150 [facility] Comment on above: Performed By: #### T HYLC #### [facility] [address] [place] [address] Dr. Benito Dupree VLDL CALC 342.2 mg/dL Normal [facility] Comment on above: Performed By: #### T HYLC #### [facility] [address] [place] [address] Dr. Benito Dupree PROF 14(COMP METB)on 022 Albumin [Mass/Vol] 3.2 g/dL Critically low 3.4-5.0 [facility] Comment on above: Performed By: #### T HYLC #### [facility] [address] [place] [address] Dr. Benito Dupree Albumin/Globulin [Mass ratio] 0.7 {ratio} Normal [facility] Comment on above: Performed By: #### T HYLC #### [facility] [address] [place] [address] Dr. Benito Dupree ALP [Catalytic activity/Vol] 92 U/L Normal 46-116 [facility] Comment on above: Performed By: #### T HYLC #### [facility] [address] [place] [address] Dr. Benito Dupree ALT [Catalytic activity/Vol] 41 U/L Normal 14-59 [facility] Comment on above: Performed By: #### T HYLC #### [facility] [address] [place] [address] Dr. Benito Dupree Anion gap [Moles/Vol] 14.1 mmol/L Normal [facility] Comment on above: Performed By: #### T HYLC #### [facility] [address] [place] [address] Dr. Benito Dupree AST [Catalytic activity/Vol] 16 U/L Normal 15-37 [facility] Comment on above: Performed By: #### T HYLC #### [facility] [address] [place] [address] Dr. Benito Dupree Bilirubin [Mass/Vol] 0.9 mg/dL Normal 0.2-1.0 [facility] Comment on above: Performed By: #### T HYLC #### [facility] [address] [place] [address] Dr. Benito Dupree Calcium [Mass/Vol] 9.1 mg/dL Normal 8.5-10.1 [facility] Comment on above: Performed By: #### T HYLC #### [facility] [address] [place] [address] Dr. Benito Dupree Chloride [Moles/Vol] 97 mmol/L Critically low 98-107 [facility] Comment on above: Performed By: #### T HYLC #### [facility] [address] [place] [address] Dr. Benito Dupree CO2 [Moles/Vol] 24.9 mmol/L Normal 21.0-32.0 [facility] Comment on above: Performed By: #### T HYLC #### [facility] [address] [place] [address] Dr. Benito Dupree Creatinine [Mass/Vol] 0.67 mg/dL Normal 0.55-1.02 [facility] Comment on above: Performed By: #### T HYLC #### [facility] [address] [place] [address] Dr. Benito Dupree EGFR-AF LIBYAN >60 Normal >=60 [facility] Comment on above: Performed By: #### T HYLC #### [facility] [address] [place] [address] Dr. Benito Dupree EGFR-NON AF LIBYAN >60 Normal >=60 [facility] Comment on above: Performed By: #### T HYLC #### [facility] [address] [place] [address] Dr. Benito Dupree Globulin (S) [Mass/Vol] 4.6 g/dL Normal [facility] Comment on above: Performed By: #### T HYLC #### [facility] [address] [place] [address] Dr. Benito Dupree Glucose [Mass/Vol] 402 mg/dL Critically high 74-106 [facility] Comment on above: Performed By: #### T HYLC #### [facility] [address] [address] [address] Benito Dupree Potassium [Moles/Vol] 4.0 mmol/L Normal 3.5-5.1 [facility] Comment on above: Performed By: #### T HYLC #### [facility] [address] [address] [address] Benito Dupree Protein [Mass/Vol] 7.8 g/dL Normal 6.4-8.2 [facility] Comment on above: Performed By: #### T HYLC #### [facility] [address] [address] [address] Benito Dupree Sodium [Moles/Vol] 132 mmol/L Critically low 136-145 [facility] Comment on above: Performed By: #### T HYLC #### [facility] [address] [address] [address] Benito Dupree Urea nitrogen [Mass/Vol] 10.0 mg/dL Normal 7.0-18.0 [facility] Comment on above: Performed By: #### T HYLC #### [facility] [address] [address] [address] Benito Dupree Urea nitrogen/Creatinine [Mass ratio] 14.9 mg/mg [facility] Comment on above: Performed By: #### T HYLC #### [facility] [address] [address] [address] Benito Dupree TSHon 08-18-2022 TSH 3.676 uIU/mL Normal 0.358-3.740 [facility] Comment on above: Performed By: #### T HYLC #### [facility] [address] [address] [address] Benito Dupree VITAMIN D 25 OHon 08-18-2022 VIT D 25-OH 13.9 ng/mL Normal [facility] Comment on above: Performed By: #### I NFLUAB #### [facility] [address] [address] [address] Benito Dupree VIT D RANGES SEE BELOW Normal [facility] Comment on above: Result Comment: <20 ng/mL Vit D deficient 20 - <30 ng/mL Vit D insufficient 30 - 100 ng/mL Vit D sufficient >100 ng/mL Potential Toxicity Performed By: #### I NFLUAB #### [facility] [address] [place] [address] Dr. Benito Dupree AMYLASEon 06-01-2022 Amylase [Catalytic activity/Vol] 29 U/L Normal 25-115 [facility] Comment on above: Performed By: #### I NFLUAB #### [facility] [address] [place] [address] Dr. Benito Dupree CBC AUTO DIFFon 06-01-2022 BASO # 0.1 103/ul Normal 0.0-0.1 [facility] Comment on above: Performed By: #### I NFLUAB #### [facility] [address] [place] [address] Dr. Benito Dupree Basophils/100 WBC (Bld) 0.5 % Normal 0.2-2.0 [facility] Comment on above: Performed By: #### I NFLUAB #### [facility] [address] [place] [address] Dr. Benito Dupree EO # 0.3 103/ul Normal 0.0-0.7 [facility] Comment on above: Performed By: #### I NFLUAB #### [facility] [address] [place] [address] Dr. Benito Dupree Eosinophils/100 WBC (Bld) 2.0 % Normal 0.9-7.0 [facility] Comment on above: Performed By: #### I NFLUAB #### [facility] [address] [place] [address] Dr. Benito Dupree Erythrocyte distribution width (RBC) [Ratio] 15.3 % Critically high 11.0-15.0 [facility] Comment on above: Performed By: #### I NFLUAB #### [facility] [address] [place] [address] Dr. Benito Dupree Hematocrit (Bld) [Volume fraction] 41.5 % Normal 36.0-48.0 [facility] Comment on above: Performed By: #### I NFLUAB #### [facility] [address] [address] [address] Benito Dupree Hemoglobin (Bld) [Mass/Vol] 12.7 g/dL Normal 12.0-16.0 [facility] Comment on above: Performed By: #### I NFLUAB #### [facility] [address] [address] [address] Benito Dupree IG # 0.06 10e3/ul Critically high 0.00-0.03 [facility] Comment on above: Performed By: #### I NFLUAB #### [facility] [address] [address] [address] Benito Dupree IG % 0.4 % Normal 0.0-0.5 [facility] Comment on above: Performed By: #### I NFLUAB #### [facility] [address] [place] [address] Dr. Benito Dupree LYMPH # 1.9 103/ul Normal 1.2-3.8 [facility] Comment on above: Performed By: #### I NFLUAB #### [facility] [address] [address] [address] Benito Dupree Lymphocytes/100 WBC (Bld) 13.9 % Critically low 20.5-60.0 [facility] Comment on above: Performed By: #### I NFLUAB #### [facility] [address] [place] [address] Dr. Benito Dupree MANUAL DIFF REQ NO Normal [facility] Comment on above: Performed By: #### I NFLUAB #### [facility] [address] [address] [address] Benito Dupree MCH (RBC) [Entitic mass] 24.7 pg Critically low 26.7-34.0 [facility] Comment on above: Performed By: #### I NFLUAB #### [facility] [address] [place] [address] Dr. Benito Dupree MCHC (RBC) [Mass/Vol] 30.6 g/dL Normal 29.9-35.2 [facility] Comment on above: Performed By: #### I NFLUAB #### [facility] [address] [place] [address] Dr. Benito Dupree MCV (RBC) [Entitic vol] 80.6 fL Critically low 81.0-99. 0 [facility] Comment on above: Performed By: #### I NFLUAB #### [facility] [address] [place] [address] Dr. Benito Dupree MONO # 0.5 103/ul Normal 0.3-0.8 [facility] Comment on above: Performed By: #### I NFLUAB #### [facility] [address] [place] [address] Dr. Benito Dupree Monocytes/100 WBC (Bld) 4.0 % Normal 1.7-12.0 [facility] Comment on above: Performed By: #### I NFLUAB #### [facility] [address] [place] [address] Dr. Benito Dupree NEUT # 10.6 103/ul Critically high 1.4-6.5 [facility] Comment on above: Performed By: #### I NFLUAB #### [facility] [address] [place] [address] Dr. Benito Dupree Neutrophils/100 WBC (Bld) 79.2 % Critically high 43.0-75.0 [facility] Comment on above: Performed By: #### I NFLUAB #### [facility] [address] [place] [address] Dr. Benito Dupree Platelet mean volume (Bld) [Entitic vol] 9.3 fL Critically low 9.5-13.5 [facility] Comment on above: Performed By: #### I NFLUAB #### [facility] [address] [place] [address] Dr. Benito Dupree PLT 391 103/ul Normal 150-450 [facility] Comment on above: Performed By: #### I NFLUAB #### [facility] [address] [place] [address] Dr. Benito Dupree RBC 5.15 106/ul Normal 4.20-5.40 [facility] Comment on above: Performed By: #### I NFLUAB #### [facility] [address] [place] [address] Dr. Benito Dupree WBC 13.4 103/ul Critically high 4.0-11.0 [facility] Comment on above: Performed By: #### I NFLUAB #### [facility] [address] [address] [address] ABD/PELV W CONon [...] WESTLEY JHA Date: 2022-06-01 14:59 Normal [facility] URINE PROFILEon 2 Bilirubin Ql (U) Negative Normal NEGATIVE [facility] Comment on above: Performed By: #### U MICRO, ERUR #### [facility] [address] [place] [address] Dr. Benito Dupree Clarity (U) SL CLOUDY Abnormal CLEAR [facility] Comment on above: Performed By: #### U MICRO, ERUR #### [facility] [address] [address] [address] Benito Dupree Color (U) YELLOW Normal YELLOW [facility] Comment on above: Performed By: #### U MICRO, ERUR #### [facility] [address] [address] [address] Benito Dupree ERUAHD A micrscopic examination will be performed if indicated. Normal [facility] Comment on above: Performed By: #### U MICRO, ERUR #### [facility] [address] [address] [address] Benito Dupree Glucose Ql (U) Negative Normal NEGATIVE [facility] Comment on above: Performed By: #### U MICRO, ERUR #### [facility] [address] [address] [address] Benito Dupree Hemoglobin Ql (U) LARGE Abnormal NEGATIVE [facility] Comment on above: Performed By: #### U MICRO, ERUR #### [facility] [address] [address] [address] Benito Dupree Ketones Ql (U) Negative Normal NEGATIVE [facility] Comment on above: Performed By: #### U MICRO, ERUR #### [facility] [address] [address] [address] Benito Dupree LEUKOCYTES Negative Normal NEGATIVE [facility] Comment on above: Performed By: #### U MICRO, ERUR #### [facility] [address] [address] [address] Benito Dupree Nitrite Ql (U) Negative Normal NEGATIVE [facility] Comment on above: Performed By: #### U MICRO, ERUR #### [facility] [address] [address] [address] Benito Dupree pH (U) 5.5 [pH] Normal 5-9 [facility] Comment on above: Performed By: #### U MICRO, ERUR #### [facility] [address] [address] [address] Benito Dupree SPEC GRAVITY 1.010 Normal 1.005-<=1.02 5 [facility] Comment on above: Performed By: #### U MICRO, ERUR #### [facility] [address] [place] [address] Dr. Benito Dupree UA PROTEIN TRACE Normal NEGATIVE/ TRACE [facility] Comment on above: Performed By: #### U MICRO, ERUR #### [facility] [address] [place] [address] Dr. Benito Dupree UR MICRO IND INDICATED Normal [facility] Comment on above: Performed By: #### U MICRO, ERUR #### [facility] [address] [place] [address] Dr. Benito Dupree Urobilinogen Qn (U) 1.0 {Tuyet'U}/dL Normal 0.2 - 1. 0 [facility] Comment on above: Performed By: #### U MICRO, ERUR #### [facility] [address] [place] [address] Dr. Benito Dupree LACTATE/LACTIC ACIDon 2021 Lactate [Moles/Vol] 1.1 mmol/L Normal 0.4-1.9 [facility] Comment on above: Performed By: #### L ACT #### [facility] [address] [place] [address] Dr. Benito Dupree LIPASEon 06-01-2022 Lipase [Catalytic activity/Vol] 111.0 U/L Normal 73.0-393.0 [facility] Comment on above: Performed By: #### I NFLUAB #### [facility] [address] [place] [address] Dr. Benito Dupree PREG HCG QUALon 06-01-2022 , QUAL Negative Normal NEGATIVE [facility] Comment on above: Performed By: #### P REG #### [facility] [address] [place] [address] Dr. Benito Dupree PROF 14(COMP METB)on 022 Albumin [Mass/Vol] 3.6 g/dL Normal 3.4-5.0 [facility] Comment on above: Performed By: #### I NFLUAB #### [facility] [address] [address] [address] Benito Dupree Albumin/Globulin [Mass ratio] 0.7 {ratio} Normal [facility] Comment on above: Performed By: #### I NFLUAB #### [facility] [address] [address] [address] Benito Dupree ALP [Catalytic activity/Vol] 90 U/L Normal 46-116 [facility] Comment on above: Performed By: #### I NFLUAB #### [facility] [address] [address] [address] Benito Dupree ALT [Catalytic activity/Vol] 39 U/L Normal 14-59 [facility] Comment on above: Performed By: #### I NFLUAB #### [facility] [address] [place] [address] Dr. Benito Dupree Anion gap [Moles/Vol] 13.0 mmol/L Normal [facility] Comment on above: Performed By: #### I NFLUAB #### [facility] [address] [address] [address] Benito Dupree AST [Catalytic activity/Vol] 25 U/L Normal 15-37 [facility] Comment on above: Performed By: #### I NFLUAB #### [facility] [address] [address] [address] Benito Dupree Bilirubin [Mass/Vol] 1.1 mg/dL Critically high 0.2-1.0 [facility] Comment on above: Performed By: #### I NFLUAB #### [facility] [address] [address] [address] Benito Dupree Calcium [Mass/Vol] 9.4 mg/dL Normal 8.5-10.1 [facility] Comment on above: Performed By: #### I NFLUAB #### [facility] [address] [address] [address] Benito Dupree Chloride [Moles/Vol] 99 mmol/L Normal 98-107 [facility] Comment on above: Performed By: #### I NFLUAB #### [facility] [address] [address] [address] Benito Dupree CO2 [Moles/Vol] 27.3 mmol/L Normal 21.0-32.0 [facility] Comment on above: Performed By: #### I NFLUAB #### [facility] [address] [place] [address] Dr. Benito Dupree Creatinine [Mass/Vol] 0.87 mg/dL Normal 0.55-1.02 [facility] Comment on above: Performed By: #### I NFLUAB #### [facility] [address] [place] [address] Dr. Benito Dupree EGFR-AF LIBYAN >60 Normal >=60 [facility] Comment on above: Performed By: #### I NFLUAB #### [facility] [address] [place] [place] [address] Dr. Benito Dupree EGFR-NON AF LIBYAN >60 Normal >=60 [facility] Comment on above: Performed By: #### I NFLUAB #### [facility] [address] [place] [address] Dr. Benito Dupree Globulin (S) [Mass/Vol] 4.8 g/dL Normal [facility] Comment on above: Performed By: #### I NFLUAB #### [facility] [address] [place] [address] Dr. Benito Dupree Glucose [Mass/Vol] 218 mg/dL Critically high 74-106 [facility] Comment on above: Performed By: #### I NFLUAB #### [facility] [address] [place] [address] Dr. Benito Dupree Potassium [Moles/Vol] 4.1 mmol/L Normal 3.5-5.1 [facility] Comment on above: Performed By: #### I NFLUAB #### [facility] [address] [place] [address] Dr. Benito Dupree Protein [Mass/Vol] 8.4 g/dL Critically high 6.4-8.2 [facility] Comment on above: Performed By: #### I NFLUAB #### [facility] [address] [address] [address] Benito Dupree Sodium [Moles/Vol] 135 mmol/L Critically low 136-145 [facility] Comment on above: Performed By: #### I NFLUAB #### [facility] [address] [place] [address] Dr. Benito Dupree Urea nitrogen [Mass/Vol] 15.0 mg/dL Normal 7.0-18.0 [facility] Comment on above: Performed By: #### I NFLUAB #### [facility] [address] [place] [address] Dr. Benito Dupree Urea nitrogen/Creatinine [Mass ratio] 17.2 mg/mg Normal [facility] Comment on above: Performed By: #### I NFLUAB #### [facility] [address] [place] [address] Dr. Benito Dupree URINE MICROSCOPIC ONLYon BACTERIA TRACE Abnormal NONE SEEN [facility] Comment on above: Performed By: #### U MICRO, ERUR #### [facility] [address] [place] [address] Dr. Benito Dupree Bacteria identified Cx Nom (U) NOT INDICATED Normal [facility] Comment on above: Performed By: #### U MICRO, ERUR #### [facility] [address] [place] [address] Dr. Benito Dupere CAST NONE SEEN Normal NONE SEEN [facility] Comment on above: Performed By: #### U MICRO, ERUR #### [facility] [address] [place] [address] Dr. Benito Dupree Crystals LM Nom (Urine sed) NONE SEEN Normal NONE SEEN [facility] Comment on above: Performed By: #### U MICRO, ERUR #### [facility] [address] [place] [address] Dr. Benito Dupree Epithelial cells LM Ql (Urine sed) MODERATE Abnormal NONE SEEN /RARE [facility] Comment on above: Performed By: #### U MICRO, ERUR #### [facility] [address] [place] [address] Dr. Benito Dupree MUCOUS TRACE Abnormal NONE SEEN [facility] Comment on above: Performed By: #### U MICRO, ERUR #### [facility] [address] [address] [address] Benito Dupree RBC 2-5 Abnormal 0-2 [facility] Comment on above: Performed By: #### U MICRO, ERUR #### [facility] [address] [address] [address] Benito Dupree WBC 0-2 Abnormal NONE SEEN [facility] Comment on above: Performed By: #### U MICRO, ERUR #### [facility] [address] [address] [address] Benito Dupree XR hand RT min 3V*on 022 XR hand RT min 3V* [facility] [employer] Other XR hand RT min 3V* [facility] [employer] Other XR hand RT min 3V* [address] [place] [address] [employer] Other XR hand RT min 3V* [place] [address] [employer] Other XR hand RT min 3V* XRay Report [employer] Other XR hand RT min 3V* Signed [employer] Other XR hand RT min 3V* Patient: Kyung Paul MR#: [id number] [employer] Other XR hand RT min 3V* : 1990 Acct:[id number] [employer] Other XR hand RT min 3V* Age/Sex: 31 / F ADM Date: 03/22/22 [employer] Other XR hand RT min 3V* Loc: XDUCLY Room: Type: [facility] [employer] Other XR hand RT min 3V* Attending Dr: Monique Dudley WIRELINE SUPERVISOR-[employer] Other XR hand RT min 3V* Ordering Provider: LORI Dias [employer] Other XR hand RT min 3V* Date of Service: 03/22/22 [employer] Other XR hand RT min 3V* XR/XR hand RT min 3V*: Finger pain, right [employer] Other XR hand RT min 3V* Copies to: LORI Dias [employer] Other XR hand RT min 3V* 3 viewsRIGHT hand plain film [employer] Other XR hand RT min 3V* COMPARISON:None [employer] Other XR hand RT min 3V* HISTORY:Fell going upstairs. RIGHT ring finger injury. [employer] Other XR hand RT min 3V* No fracture, dislocation or focal soft tissue abnormality seen. [employer] Other XR hand RT min 3V* XR/XR hand RT min 3V* [employer] Other XR hand RT min 3V* IMPRESSION:No acute findings [employer] Other XR hand RT min 3V* Impression dictated by: Ta Galvan M.D.03/22/2022 4:42 PM [employer] Other XR hand RT min 3V* Dictation Location: [place] [address] [employer] Other XR hand RT min 3V* Transcribed By: DANIELLE 03/22/22 [facility] [employer] Other XR hand RT min 3V* Dictated By: Ta Galvan DO 03/22/22 [facility] [employer] Other XR hand RT min 3V* Signed By: [employer] Other XR hand RT min 3V* 03/22/22 1642 [facility] [employer] Other Vital Signs Date Time Vital Sign Value Performing Clinician [facility] 10-24-2024 14:24-0500 Body height 157.5 cm Pato Brown DPM Work Phone: [facility] 10-24-2024 14:24-0500 Body mass index (BMI) [Ratio] 56.7 kg/m2 Pato Brown DPM Work Phone: [facility] 10-24-2024 14:24-0500 Body weight 140.62 kg Pato Brown DPM Work Phone: [facility] 10-24-2024 14:24-0500 Respiratory rate 18 /min Pato Brown DPM Work Phone: [facility] 10-04-2024 14:48-0500 Body height 157.5 cm Pato Brown DPM Work Phone: [facility] 10-04-2024 14:48-0500 Body mass index (BMI) [Ratio] 56.7 kg/m2 Pato Brown DPM Work Phone: [facility] 10-04-2024 14:48-0500 Body weight 140.62 kg Pato Brown DPM Work Phone: [facility] 10-04-2024 14:48-0500 Diastolic blood pressure 79 mm[Hg] Pato Brown DPM Work Phone: [facility] 10-04-2024 14:48-0500 Heart rate 82 /min Pato Brown DPM Work Phone: [facility] 10-04-2024 14:48-0500 Systolic blood pressure 129 mm[Hg] Pato Brown DPM Work Phone: [facility] 09-20-2024 14:37-0400 Body height 157.5 cm Pato Brown DPM Work Phone: [facility] 09-20-2024 14:37-0400 Body mass index (BMI) [Ratio] 56.7 kg/m2 Pato Brown DPM Work Phone: [facility] 09-20-2024 14:37-0400 Body weight 140.62 kg Pato Rodo DPM Work Phone: [facility] 09-20-2024 14:37-0400 Diastolic blood pressure 77 mm[Hg] Pato Brown DPM Work Phone: [facility] 09-20-2024 14:37-0400 Heart rate 79 /min Pato Brown DPM Work Phone: [facility] 09-20-2024 14:37-0400 Systolic blood pressure 126 mm[Hg] Pato Brown DPM Work Phone: [facility] 09-13-2024 14:46-0400 Body height 157.5 cm Pato Koehler DPM Work Phone: [facility] 09-13-2024 14:46-0400 Body mass index (BMI) [Ratio] 56.7 kg/m2 Pato Brown DPM Work Phone: [facility] 09-13-2024 14:46-0400 Body weight 140.62 kg Pato Koehler DPM Work Phone: [facility] 09-13-2024 14:46-0400 Diastolic blood pressure 78 mm[Hg] Pato Koehler DPM Work Phone: [facility] 09-13-2024 14:46-0400 Heart rate 85 /min Pato Brown DPM Work Phone: [facility] 09-13-2024 14:46-0400 Systolic blood pressure 123 mm[Hg] Pato Brown DPM Work Phone: [facility] 08-30-2024 14:58-0400 Body height 157.5 cm Pato Brown DPM Work Phone: [facility] 08-30-2024 14:58-0400 Body mass index (BMI) [Ratio] 56.7 kg/m2 Pato Koehler DPM Work Phone: [facility] 08-30-2024 14:58-0400 Body weight 140.62 kg Pato Koehler DPM Work Phone: [facility] 08-30-2024 14:58-0400 Diastolic blood pressure 80 mm[Hg] Pato Koehler DPM Work Phone: [facility] 08-30-2024 14:58-0400 Heart rate 75 /min Pato Koehler DPM Work Phone: [facility] 08-30-2024 14:58-0400 Respiratory rate 18 /min Pato Koehler DPM Work Phone: [facility] 08-30-2024 14:58-0400 Systolic blood pressure 128 mm[Hg] Pato Koehler DPM Work Phone: [facility] 05-16-2024 15:25-0400 Diastolic blood pressure 70 mm[Hg] WIRELINE SUPERVISOR-C Monique Lien Work Phone: [facility] 05-16-2024 15:25-0400 Heart rate 80 /min WIRELINE SUPERVISOR-C Monique Lien Work Phone: [facility] 05-16-2024 15:25-0400 Respiratory rate 22 /min WIRELINE SUPERVISOR-C Monique Lien Work Phone: [facility] 05-16-2024 15:25-0400 SaO2% (BldA) [Mass fraction] 94 % WIRELINE SUPERVISOR-C Monique Lien Work Phone: [facility] 05-16-2024 15:25-0400 Systolic blood pressure 124 mm[Hg] WIRELINE SUPERVISOR-C Monique Lien Work Phone: [facility] 05-16-2024 12:57-0400 Body temperature 98.6 [degF] WIRELINE SUPERVISOR-C Monique Lien Work Phone: [facility] 05-16-2024 12:57-0400 Inhaled oxygen flow rate 6 L/min WIRELINE SUPERVISOR-C Monique Emmanuel Work Phone: [facility] 05-16-2024 10:38-0400 Body mass index (BMI) [Ratio] 56.5 kg/m2 WIRELINE SUPERVISOR-C Monique Emmanuel Work Phone: [facility] 05-16-2024 10:31-0400 Body height 157.48 cm WIRELINE SUPERVISOR-C Monique Emmanuel Work Phone: [facility] 05-16-2024 10:31-0400 Body weight 140.16 kg WIRELINE SUPERVISOR-C Monique Emmanuel Work Phone: [facility] 04-25-2024 13:27-0400 Diastolic blood pressure 85 mm[Hg] Pato Koehler [facility] 04-25-2024 13:27-0400 Heart rate 64 /min Pato Koehler [facility] 04-25-2024 13:27-0400 Mean blood pressure 103 mm[Hg] Pato Koehler [facility] 04-25-2024 13:27-0400 Systolic blood pressure 139 mm[Hg] Pato Koehler [facility] 04-25-2024 13:26-0400 Heart rate 65 /min Pato Koehler [facility] 04-25-2024 13:26-0400 Respiratory rate 16 /min Pato Koehler [facility] 04-25-2024 13:26-0400 SaO2% (BldA) [Mass fraction] 93 % Pato Koehler [facility] 04-25-2024 13:26-0400 Blood Pressure Location Pato Koehler [facility] 04-25-2024 13:26-0400 Body temperature 98.42 [degF] Pato Koehler [facility] 04-25-2024 13:26-0400 Diastolic blood pressure 83 mm[Hg] Pato Koehler [facility] 04-25-2024 13:26-0400 Mean blood pressure 100 mm[Hg] Pato Koehler [facility] 04-25-2024 13:26-0400 Systolic blood pressure 135 mm[Hg] Pato Koehler [facility] 02-27-2024 17:36-0400 Body height 154.94 cm WIRELINE SUPERVISOR-C Monique Emmanuel Work Phone: [facility] 02-27-2024 17:36-0400 Body mass index (BMI) [Ratio] 58.4 kg/m2 WIRELINE SUPERVISOR-C Monique Emmanuel Work Phone: [facility] 02-27-2024 17:36-0400 Body temperature 97.7 [degF] WIRELINE SUPERVISOR-C Monique Emmanuel Work Phone: [facility] 02-27-2024 17:36-0400 Body weight 140.38 kg WIRELINE SUPERVISOR-C Monique Emmanuel Work Phone: [facility] 02-27-2024 17:36-0400 Heart rate 87 /min WIRELINE SUPERVISOR-C Monique Whitleymer Work Phone: [facility] 02-27-2024 17:36-0400 Respiratory rate 18 /min WIRELINE SUPERVISOR-C Monique Whitleymer Work Phone: [facility] 02-27-2024 17:36-0400 SaO2% (BldA) [Mass fraction] 97 % WIRELINE SUPERVISOR-C Monique Whitleymer Work Phone: [facility] 03-22-2022 16:45-0400 Body height 154.94 cm Monique Dudley Other [employer] Other 03-22-2022 16:45-0400 Body mass index (BMI) [Ratio] 58.38 kg/m2 Monique Dudley Other [employer] Other 03-22-2022 16:45-0400 Body temperature 97.9 [degF] Monique Dudley Other [employer] Other 03-22-2022 16:45-0400 Body weight 140.16 kg Monique Dudley Other [employer] Other 03-22-2022 16:45-0400 Diastolic blood pressure 93 mm[Hg] Monique Dudley Other [employer] Other 03-22-2022 16:45-0400 Respiratory rate 20 /min Monique Dudley Other [employer] Other 03-22-2022 16:45-0400 SaO2% (BldA) [Mass fraction] 98 % Monique Dudley Other [employer] Other 03-22-2022 16:45-0400 Systolic blood pressure 154 mm[Hg] Monique Dudley Other [employer] Other Encounters Encounter Date Encounter Type Care Provider Facility Start: 10-24-2024 End: 10-24-2024 Postop follow up visit related to original px Pato Koehler DPM Work Phone: [facility] Comment on above: Stress fracture of r ight foot, initial encounter (Primary Dx); Type 2 diabetes mellitus without complication, 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 slabber insulin use (CMS/HCC); Accessory navicular bone of right foot Start: 10-24-2024 End: 10-24-2024 Bamboo flowsheet Pato Koehler DPM Work Phone: [facility] Start: 10-24-2024 End: 10-24-2024 Bamboo flowsheet Pato Tia Brown DPM Work Phone: [facility] Start: 10-04-2024 End: 10-04-2024 Postop follow up visit related to original px Pato Tia Brown DPM Work Phone: [facility] Comment on above: 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); Contracture of right ankle; Stress fracture of right foot, initial encounter Start: 10-04-2024 End: 10-04-2024 ambulatory PATO Tia BROWN Not Available Start: 10-04-2024 End: 10-04-2024 Bamboo flowsheet Pato Tia Brown DPM Work Phone: [facility] Start: 10-04-2024 End: 10-04-2024 Bamboo flowsheet Pato Tia Brown DPM Work Phone: [facility] Start: 09-20-2024 End: 09-20-2024 Postop follow up visit related to original px Pato Tia Brown DPM Work Phone: [facility] Comment on above: 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); Contracture of right ankle Start: 09-20-2024 End: 09-20-2024 ambulatory PATO Tia KOEHLER Not Available Start: 09-20-2024 End: 09-20-2024 Bamboo flowsheet Pato Tia Brown DPM Work Phone: [facility] Start: 09-20-2024 End: 09-20-2024 Bamboo flowsheet Pato A Brown DPM Work Phone: [facility] Start: 09-13-2024 End: 09-13-2024 Postop follow up visit related to original px Pato A Brown DPM Work Phone: [facility] Comment on above: 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); Contracture of right ankle; Type 2 diabetes mellitus without complication, 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 senior living insulin use (CMS/[facility]) Start: 09-13-2024 End: 09-13-2024 ambulatory PATO KOEHLER Not Available Start: 09-07-2024 End: 09-07-2024 Telephone encounter Pato Koehler DPM Work Phone: [facility] Start: 09-05-2024 End: 09-05-2024 Lab Drop off Pato Koehler [facility] Start: 09-05-2024 End: 09-05-2024 ambulatory DPM Pato Koehler [facility] Start: 08-30-2024 End: 08-30-2024 Office outpatient visit 25 minutes Pato Koehler DPM Work Phone: [facility] Comment on above: 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); Type 2 diabetes mellitus without complication, 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 slabber insulin use (CMS/[facility]); Heel spur, left; Plantar fasciitis; Contracture of left ankle; Contracture of right ankle Start: 08-30-2024 End: 08-30-2024 ambulatory PATO KOEHLER Not Available Start: 08-30-2024 End: 08-30-2024 Bamboo flowsheet Pato Koehler DPM Work Phone: [facility] Start: 08-30-2024 End: 08-30-2024 Bamboo flowsheet Pato Koehler DPM Work Phone: [facility] Start: 08-02-2024 End: 08-02-2024 [...] 05-16-2024 Admission to same day surgery center WIRELINE SUPERVISOR-C Monique Emmanuel Work Phone: [facility] [place] Start: 05-16-2024 End: 05-16-2024 ambulatory WIRELINE SUPERVISOR-C Monique Alicia Lien Work Phone: [facility] Work Phone: Start: 05-03-2024 End: 05-03-2024 ambulatory PATO KOEHLER Not Available Start: 04-25-2024 ambulatory Pato Koehler Facil ty:[facility] Start: 04-25-2024 End: 04-25-2024 ambulatory DPM Pato Koehler Facility[facility] Start: 04-25-2024 End: 04-25-2024 Patient encounter procedure Pato Koehler [facility] Start: 04-16-2024 End: 05-10-2024 Pre-admission assessment Pato Koehler [facility] Start: 04-12-2024 End: 04-12-2024 ambulatory PATO KOEHLER Not Available Start: 03-29-2024 End: 03-29-2024 ambulatory PATO KOEHLER Not Available Start: 02-27-2024 End: 02-27-2024 ambulatory WIRELINE SUPERVISOR-C Monique Alicia Lien Work Phone: [facility] Work Phone: Start: 02-27-2024 End: 02-27-2024 Patient encounter procedure WIRELINE SUPERVISOR-C Monique Emmanuel Work Phone: [facility] Work Phone: Start: 04-27-2023 ambulatory MONIQUE EMMANUEL Facility: [facility] Start: 01-05-2023 End: 01-05-2023 ambulatory MONIQUEZENOBIA EMMANUEL Facility:[facility] Start: 11-28-2022 End: 11-29-2022 ambulatory MONIQUE EMMANUEL Facility:[facility] Start: 11-15-2022 End: 11-16-2022 ambulatory MONIQUE EMMANUEL Facility:[facility] Start: 10-25-2022 End: 11-27-2022 ambulatory MONIQUE WHITLEYMER Facility:[facility] Start: 08-25-2022 End: 08-26-2022 ambulatory MONIQUE EMMANUEL Facility:[facility] Start: 08-19-2022 Encounter for genera l adult medical examination without abnormal findings MONIQUE LIEN [facility] Start: 08-18-2022 End: 08-19-2022 ambulatory MONIQUE EMMANUEL Facility:[facility] Start: 08-18-2022 End: 08-19-2022 Encounter for general adult medical examination without abnormal findings MONIQUE EMMANUEL Facility:[facility] Start: 06-01-2022 End: 06-01-[address] WESTLEY JHA Facility:[facility] Start: 03-22-2022 End: 03-22-2022 ambulatory Monique Dudley Other [employer] Other Start: 03-22-2022 Office outpatient vi sit 15 minutes Monique Dudley [facility] Procedures Date Procedure Procedure Detail Performing Clinician Start: 05-16-2024 Debridement WIRELINE SUPERVISOR-C Shruti tia Lien Work Phone: Start: 05-16-2024 X-ray of left foot WIRELINE SUPERVISOR-C Monique Emmanuel Work Phone: Start: 02-27-2024 Plain X-ray of right shoulder WIRELINE SUPERVISOR-C Monique Lien Work Phone: Cholecystectomy Pato pulliam Plan of Treatment Date Care Activity Detail Author Start: 11-01-2024 End: 11-01-2024 Patient encounter procedure 11/01/2024 4:20 PM EST Office Visit [facility] [address] [facility] [address] [place] [address] Pato Koehler DPM [address] [facility] [address] [place] [address] [facility] Start: 10-24-2024 End: 10-24-2024 Patient encounter procedure 10/24/2024 2:40 PM EST Office Visit [facility] [address] [place] [address] Pato Koehler DPM [address] [address] Stress fracture of right foot, initial encounter (Primary Dx); Type 2 diabetes mellitus without complication, 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 slabber insulin use ([facility]) [facility] Comment on above: Stress fracture of r ight foot, initial encounter (Primary Dx); Type 2 diabetes mellitus without complication, 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 senior living insulin use ([facility]) Start: 10-04-2024 End: 10-04-2024 Patient encounter procedure 10/04/2024 2:40 PM EST Office Visit [facility] [address] [id number] Pato Koehler DPM [address] [address] 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); Contracture of right ankle [facility] Comment on above: 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); Contracture of right ankle Start: 09-20-2024 End: 09-20-2024 Patient encounter procedure 09/20/2024 2:40 PM EDT Office Visit [facility] [address] [address] Pato Koehler DPM [address] [address] 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); Contracture of right ankle [facility] Comment on above: 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); Contracture of right ankle Start: 09-13-2024 End: 09-13-2024 Patient encounter procedure 09/13/2024 3:20 PM EDT Office Visit [facility] [address] [place] [address] Pato Koehler DPM [address] [address] [facility] Start: 09-12-2024 End: 09-12-2024 Patient encounter procedure 09/12/2024 3:00 PM EDT [facility] Visit [facility] [address] [place] [address] Pato Koehler DPM [address] [address] [facility] Start: 09-05-2024 End: 09-05-2024 Patient encounter procedure 09/05/2024 7:30 AM EDT Procedure Visit [facility] Pato Koehler DPM [address] [address] [facility] Start: 08-30-2024 End: 08-30-2024 Patient encounter procedure 08/30/2024 2:50 PM EDT Office Visit [facility] [address] [place] [address] Pato Koehler DPM [address] [address] 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); Type 2 diabetes mellitus without complication, 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 senior living insulin use (CMS/[facility]) [facility] Comment on above: 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); Type 2 diabetes mellitus without complication, 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 slabber insulin use (CMS/HCC) Start: 05-16-2024 [facility] Start: 05-16-2024 [facility] MR Foot - right WO contrast MR foot right wo IV contrast Imaging Routine Stress fracture of right foot, initial encounter Ordered: 10/04/2024 [facility] Work Phone: Comment on above: Ordered: 10/04/2024 Patient Education Know your [facility] Work Phone: XR Foot - right 3 Views XR foot 3+ views right Imaging Routine Accessory navicular bone of right foot 09/13/2024 3:04 PM EDT [facility] Work Phone: Immunizations Immunization Date Immunization Notes Care Provider [facility] 07-19-2002 hepatitis B vaccine, pediatric or pediatric/adolescent dosage Pato Koehler DPM Work Phone: [facility] 07-19-2002 measles, mumps and rubella virus vaccine Pato Koehler DPM Work Phone: [facility] 04-16-1993 diphtheria, tetanus toxoids and pertussis vaccine Pato Koehler DPM Work Phone: [facility] 04-16-1993 trivalent poliovirus vaccine, live, oral Pato Koehler DPM Work Phone: [facility] 05-18-1990 haemophilus influenz ae type b vaccine, conjugate unspecified formulation Pato Koehler DPM Work Phone: [facility] 10-13-1989 diphtheria, tetanus toxoids and pertussis vaccine Pato Koehler DPM Work Phone: [facility] 10-13-1989 measles, mumps and rubella virus vaccine Pato Koehler DPM Work Phone: [facility] 10-13-1989 trivalent poliovirus vaccine, live, oral Pato Koehler DPM Work Phone: [facility] 05-11-1989 diphtheria, tetanus toxoids and pertussis vaccine Pato Koehler DPM Work Phone: [facility] 03-17-1989 diphtheria, tetanus toxoids and pertussis vaccine Pato Koehler DPM Work Phone: [facility] 03-17-1989 trivalent poliovirus vaccine, live, oral Pato Koehler DPM Work Phone: [facility] 1988 diphtheria, tetanus toxoids and pertussis vaccine Pato Koehler DPM Work Phone: [facility] 1988 trivalent poliovirus vaccine, live, oral Pato Koehler DPM Work Phone: [facility] Healthcare Payers Date Payer Category Payer Self-pay [id number] 2020 [facility] BCBS Memb er Subscriber Plan / Payer (Effective 2020-Present) Name: PollophilipKyung Relation to Subscriber: Spouse Name: Pollophilip Lonnie Tadeo Date of : 1992 Address: [address] [place] [address] Payer ID: Not on file Type: Not on file Address: [address] [place] [id number] 2020 [id number] 2020-Present [phone] [address] [place] [id number] [id number]. 2.7.3.554786.315 1988 Unknown [id number] 2.16.840.1.128619.3.579. 2.593 1988 Unknown [id number] 2.16.840.1.534891.3.579. 2.593 1988 Unknown [id number] 2.16.840.1.147525.3.579. 2.593 1988 Unknown [id number] 2.16.840.1.409971.3.579. 2.593 1988 Unknown [id number] 2.16.840.1.531950.3.579. 2.593 1988 Unknown [id number] 2.16.840.1.529125.3.579. 2.593 1988 Unknown [id number] 2.16.840.1.999290.3.579. 2.593 1988 Unknown [id number] 2.16.840.1.889037.3.579. 2.593 1988 Unknown [id number] 2.16.840.1.381491.3.579. 2.727 1988 Unknown [id number] 2.16.840.1.888841.3.579. 2.1258 1988 Unknown [id number] 2.16.840.1.027416.3.579. 2.1258 1988 Unknown [id number] 2.16840.1.998897.3.579. 2.1258 1988 Unknown [id number] 2.16.840.1.317822.3.579. 2.1258 1988 Unknown [id number] 2.16.840.1.186110.3.579. 2.1258 1988 Unknown [id number] 2.16.840.1.650452.3.579. 2.9 1988 Unknown [id number] 2.16840.1.135911.3.579. 2.727 1988 Unknown [id number] 2.16.840.1.245141.3.579. 2.1259 1988 Unknown [id number] 2.16.840.1.060742.3.579. 2.1258 1988 Unknown [id number] 2.16.840.1.379189.3.579. 2.1258 1988 Unknown [id number] 2.16.840.1.209641.3.579. 2.1258 1988 Unknown [id number] 2.16.840.1.677590.3.579. 2.1259 1988 Unknown [id number] 2.16.840.1.971278.3.579. 2.1259 1988 Unknown [id number] 2.16.840.1.560995.3.579. 2.1259 1988 Unknown [id number] 2.16.840.1.281266.3.579. 2.1259 1988 Unknown [id number] 2.16.840.1.917137.3.579. 2.1259 1959 [facility] [id number] 2.16.840.1.776263.19 Unknown [id number] 2.16.840.1.936877.3.579. 2.531 Unknown [id number] 2.16.840.1.031670.3.579. 2.531 Social History Date Type Detail Facility Unknown if ever smoked [employer] Other Start: 08-02-2024 End: 10-24-2024 Sex Assigned At [facility] Start: 10-25-2018 End: 03-29-2024 Tobacco smoking status NHIS Never smoked tobacco (finding) [facility] Start: 1990 Sex Assigned At Female [facility] Tobacco smoking status No Smoking Status Entered [facility] Start: 03-29-2024 Tobacco use and exposure Smokeless tobacco non-user [facility] Start: 08-02-2024 End: 10-24-2024 Alcoholic beverage intake Lifetime non-drinker (finding) [facility] Start: 08-02-2024 End: 10-24-2024 History of Social function [facility] Start: 1990 Sex assigned at Not on file [facility] NEGATED: Highlighted rowStart: NINF History of tobacco use Passive smoker [facility] Goals Date Patient Goal Desired Activity /State Functional Status Date Assessment Result Facility 04-25-2024 Functional Status No [facility] Clinical Notes 03-22-2022 to 10-24-2024 Pato Koehler, DPM - 10/24/2024 2:40 PM ESTPato Koehler, DPM - 10/04/2024 2:40 PM ESTPato Koehler, DP - 09/20/2024 2:30 PM EDTPato Koehler, DP - 08/30/2024 2:50 PM EDT Note Date & Type Note Facility 10-24-2024 History of Presen t illness Narrative Patient: Kyung Paul : 1990 PCP: Erich Garcia MD SUBJECTIVE This is a 34 y.o. female that presents today 49 days s/p right modified Kidner right foot Pt denies n/f/v/c and has positive pain to post op site. Patient was seen in local hospital ER and dispensed a high Cam walker type boot. She states pain up to a 7/10 at times and presents today for follow-up of MRI results at [facility]. Allergies: Allergies Allergen Reactions Sulfa Antibiotics Rash and Hives Past Medical History: Past Medical History: Diagnosis Date Diabetes (CMS/[facility]) Ear problems GERD (gastroesophageal reflux disease) [...] chills, fatigue, malaise OBJECTIVE LE EXAM: Derm: Skin intact to right foot with negative erythema, negative drainage, diminished edema with negative clinical signs of infection. Vascular: Palpable pedal pulses to right foot Neuro: Gross sensation intact to right foot. Musculoskeletal: Negative pain on palpation to right calf. Ortho: Ankle range of motion less than 10 degrees of dorsiflexion at right ankle joint. Positive pain on palpation to the right dorsal aspect of the navicular and 1st cuneiform region XRAY: Verbal order today for x-rays be taken by staff. AP/Oblique/Lateral 3 view radiographs today of the right foot demonstrated the following: Lateral view demonstrates negative fracture identified with oblique and AP views demonstrating with skin of bone dorsally at the navicular with what appears to be possible fracture of medial 1/3 of the navicular. MRI: MRI suggestive of possible low-grade partial tearing of the PT tendon. Mention of posterior medial accessory navicular with bone marrow edema and suspected stress reaction. ASSESSMENT 49 days s/p modified Kidner right foot 1. Stress fracture of right foot, initial encounter 2. Type 2 diabetes mellitus without complication, 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 senior living insulin use ([facility]) 3. Accessory navicular bone of right foot PLAN Pt to take nsaids as needed PRN pain Reviewed MRI today with patient Patient be placed on narcotic of Percocet today for p.r.n. pain and remain strict nonweightbearing to the right foot as much as possible with walking boot just as necessary for minimal ambulation Recommended to apply ice to affected areas for 20 minutes, twice daily. Ice should not be applied directly to skin. On upon review of MRI patient has stress like reaction and I suspect stress fracture type reaction or fracture that involves the medial 1/3 of the navicular bone on AP and medial oblique views of the foot on current x-rays. Patient does have a radiolucent Arthrex anchor as well that is not apparent on plain films and not mentioned on MRI. Due to the large portion navicular bone for possible remaining accessory bone not apparent during surgery or postoperative films suspect possible navicular type fracture or stress fracture. Due to findings patient may need more invasive surgery. Will refer to [facility] Dr. Phoenix for referral and consultation at tertiary care center secondary to more advanced type procedure may be necessary. Will refer for consultation and possible further intervention Pato Koehler DPM documented in this encounter [facility] 10-04-2024 History of Presen t illness Narrative [...] History: Past Medical History: Diagnosis Date Diabetes ([facility]) Ear problems GERD (gastroesophageal reflux disease) [...] Pato Koehler DPM documented in this encounter [facility] 09-20-2024 History of Presen t illness Narrative [...] History: Past Medical History: Diagnosis Date Diabetes ([facility]) Ear problems GERD (gastroesophageal reflux disease) [...] Pato Koehler DPM documented in this encounter [facility] 09-07-2024 Telephone encount er Note Has been called for possible increase in pain medication and will switch from hydrocodone to oxycodone and sent to [facility] and [place] 09-07-2024 Miscellaneous Notes Formattin g of this note might be different from the original. Has been called for possible increase in pain medication and will switch from hydrocodone to oxycodone and sent to [facility] and [place] documented in this encounter [facility] 08-30-2024 History of Presen t illness Narrative [...] History: Past Medical History: Diagnosis Date Diabetes ([facility]) Ear problems GERD (gastroesophageal reflux disease) [...] cool tibia to toes b/l NEURO: 5.07 [place] Deyanira monofilament test positive to digits and [...] 2 diabetes mellitus without complication, 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 slabber insulin use ([facility]) 3. Heel spur, left 4. Plantar [...] risks, alternatives, benefits, post op complications and senior living expectations were discussed including but not limited to: infection,bone infection,wound dehiscence hardware failure and irritation,wound dehiscence,delay union/mal union/non union of bone. RSDS,neuroma,duty limitations,DVT/PE, [place],nerve damage, scar, loss of sensation, swelling. Pt [...] Pato Koehler DPM documented in this encounter [facility] 03-22-2022 Evaluation note Encounter Date Diagnosis Assessment [...] no improvement in 5 to 7 days. [employer] Other Evaluation + Plan note Future Appointments Appointment Date:05/09/2024 07:30:00 AM Scheduled Provider: Location:[facility] information available [facility] Work Phone: Evaluation note* Diagnosis 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 Type 2 diabetes mellitus without complication, 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 slabber insulin use (CMS/HCC) Heel spur, left Plantar fasciitis Plantar fascial fibromatosis Contracture of left ankle Contracture of right ankle documented in this encounter [facility] HealthcareEvaluation note* Diagnosis 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 documented in this encounter [facility] HealthcareEvaluation note* Diagnosis 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 Contracture of right ankle Type 2 diabetes mellitus without complication, 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 senior living insulin use (CMS/HCC) documented in this encounter [facility] HealthcareEvaluation note* Diagnosis 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 Contracture of right ankle documented in this encounter [facility] HealthcareEvaluation note* Diagnosis 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 Contracture of right ankle Stress fracture of right foot, initial encounter documented in this encounter [facility] HealthcareEvaluation note* Diagnosis Stress fracture of right foot, initial encounter- Primary Type 2 diabetes mellitus without complication, 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 slabber insulin use (CMS/HCC) Accessory navicular bone of right foot documented in this encounter [facility] HealthcareHistory general Narrative - Reported* Type Description Date Medical History Acquired hypothyroidism Medical History vitamin D deficiency Surgical History cholecystectomy Hospitalization History No Hospitalization histo ry information [employer] Other History of Present illness Narrative* Pato Koehler, SHITAL - 09/13/2024 3:20 PM EDT Patient: Kyung Paul : 1990 PCP: Eirch Garcia MD SUBJECTIVE This is a 34 [...] History: Past Medical History: Diagnosis Date Diabetes (CMS/HCC) Ear problems GERD (gastroesophageal reflux disease) 2011 [...] 2 diabetes mellitus without complication, 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 senior living insulin use ([facility]) PLAN Patient to keep dry sterile [...] patient [facility] N[facility] No data available for this section [facility] No data available for this section [facility] Additional Instructions DISCHARGE INSTRUCTIONS FOR [...] operative site FOLLOW UP Phone numbers: Office [phone] [ ][facility] Work Phone: Progress note No data available for this section [facility] Summary Purpose Family History Relationship Condition Age at Onset Recorded Date/T luis alfredo Not Specified Unknown Heart disease Unknown Advance Directives Advance Directive Response Recorded Date/ Time Advance [...] bone of right foot Pato Koehler DPM [address] [address] Referral ID Status Reason Start Date Expiration Date V isits Requested Visits Authorized [id number] Pending Review 09/07/2024 03/06/2025 1 1 Additional Source Comments REASON FOR VISIT (unrecogniz ed section and content) Reason Comments Consent Or Instructions Pre op- rt kidne r Reason Comments Post-op 1st post op rt ft Reason Comments Post-op 16 D post op rt ft Reason Comments Post-op 29 D rt ft F/U Reason Comments Follow-up ER FOLLOW UP INFORMATION SOURCE (unrecogn ized section and content) DATE CREATED AUTHOR 05/06/2023 [facility] pital DATE CREATED AUTHOR AUTHOR'S ORGANIZ ATION 04/26/2024 [facility] DATE CREATED AUTHOR AUTHOR'S ORGANIZ ATION 05/25/2024 [facility] DATE CREATED AUTHOR AUTHOR'S ORGANIZ ATION 07/01/2024 [facility] EP[facility] DATE CREATED AUTHOR AUTHOR'S ORGANIZ ATION 09/12/2024 [facility] DATE CREATED AUTHOR AUTHOR'S ORGANIZ ATION 09/13/2024 [facility] DATE CREATED AUTHOR AUTHOR'S ORGANIZ ATION 09/15/2024 [facility] DATE CREATED AUTHOR AUTHOR'S ORGANIZ ATION 10/06/2024 [facility] EPIC Care Teams (unrecognized sec tion and content) Team Status: Active Member Role Status Dates OLRI Alvarez Primary Care Provider Active Team Status: [...] May 16, 2024 End: May 16, 2024 [employer]ent Acquisition Project Manager Relationship Specialty Start Date End Date Erich Garcia MD [address] [place] [phone] PCP - General Family Medicine 07/24/24 Monique Emmanuel MD [address] [place], [place] [phone] Referring Physician Family Medicine 03/29/24 Monique Emmanuel MD [address] [place] [phone] Referring Physician Family Medicine 07/24/24 Jaime Camargo DO [address] [place] [address] Otolaryngology 07/24/24 [employer] Acquisition Project Manager Relationship Specialty Start Date End Date Erich Garcia MD [address] [place] [phone] PCP - General Family Medicine 07/24/24 [place] [address] [place] [phone] Referring Physician Family Medicine 03/29/24 Monique Emmanuel MD [address] [place] [phone] Referring Physician Family Medicine 07/24/24 Jaime Camargo DO [address] [place] [address] Otolaryngology 07/24/24 Talent Acquisition Project Manager Relationship Specialty Start Date End Date Erich Garcia MD [address] [place] [phone] PCP - General Family Medicine 07/24/24 Monique Emmanuel MD [address] [place] [phone] Referring Physician Family Medicine 03/29/24 Monique Emmanuel MD [address] [place] [phone] Referring Physician Family Medicine 07/24/24 Jaime Camargo DO [address] [place] [place] [address] Otolaryngology 07/24/24 Talent Acquisition Project Manager Relationship Specialty Start Date End Date Erich Garcia MD [address] [place] [phone] PCP - General Family Medicine 07/24/24 Monique Emmanuel MD [address] [place] [address] Referring Physician Family Medicine 03/29/24 Monique Emmanuel MD [address] [place] [phone] Referring Physician Family Medicine 07/24/24 Jaime Camargo DO [address] [place] [address] Otolaryngology 07/24/24 Talent Acquisition Project Manager Relationship Specialty Start Date End Date Erich Garcia MD [address] [place] [phone] PCP - General Family Medicine 07/24/24 Monique Emmanuel MD [address] [place] [phone] Referring Physician Family Medicine 03/29/24 Monique Emmanuel MD [address] [place] [phone] Referring Physician Family Medicine 07/24/24 Jaime Camargo DO [address] [place] [address] Otolaryngology 07/24/24 Talent Acquisition Project Manager Relationship Specialty Start Date End Date Erich Garcia MD [address] [place] [phone] PCP - General Family Medicine 07/24/24 Monique Emmanuel MD [address] [place] [phone] Referring Physician Family Medicine 03/29/24 Monique Emmanuel MD [address] [place] [phone] Referring Physician Family Medicine 07/24/24 Jaime Camargo DO [address] [place] [address] Otolaryngology 07/24/24 Talent Acquisition Project Manager Relationship Specialty Start Date End Date Erich Garcia MD [address] [place] [phone] PCP - General Family Medicine 07/24/24 Monique Emmanuel MD [address] [place] [address] Referring Physician Family Medicine 03/29/24 Monique Emmanuel MD [address] [place] [phone] Referring Physician Family Medicine 07/24/24 Jaime Camargo DO [address] [place] [address] Otolaryngology 07/24/24 [employer] Acquisition Project Manager Relationship Specialty Start Date End Date Erich Garcia MD [address] [place] [phone] PCP - General Family Medicine 07/24/24 [place] [address] [place] [phone] Referring Physician Family Medicine 03/29/24 Monique Emmanuel MD [address] [place] [phone] Referring Physician Family Medicine 07/24/24 Jaime Camargo DO [address] [place] [address] Otolaryngology 07/24/24 Goals (unrecognized section and content) [...] BE BASED ON THE PRIMARY CLINICAL RECORDS. [employer]. provides no warranty or guarantee of the accuracy or completeness of information in this document.
--- NOTE | 2024-10-26 10:11 | ECG_ITS ---
[facility] Test Date: 2024-10-26 Pat Name: NOEL ROCHE Department: Room: - Gender: Female [place]: : 1990 Requested By: Gaurav Snyder Order Number: [id number] Reading MD: CINTIA SANZ Measurements Intervals Ellis Rate: 83 P: 52 CT: 180 QRS: 29 QRSD: 88 T: 19 QT: 333 QTc: 392 Interpretive Statements SINUS RHYTHM Compared to ECG 09/13/2017 01:30:56 No significant changes Electronically Signed On 10-28-2024 7:34:59 EST by CINTIA SANZ
--- NOTE | 2024-10-26 11:00 | PM.PRESUREVA ---
History of Present Illness History of Present Illness Chief complaint: primary osteoarthritis right shoulder Narrative: Presents to preadmission testing for complaints of pain to the right shoulder she has been evaluated by Dr. Snyder and is scheduled on November 05, 2024 for right shoulder arthroscopic distal clavicle excision for continued right shoulder pain and arthritis of the right acromioclavicular joint Review of Systems ROS Narrative REVIEW OF SYSTEMS: Negative except as stated in HPI, ten or more systems reviewed. Constitutional: No fever, chills, weakness ENT: No sore throat or epistaxis Cardiovascular: No edema, chest pain, palpitations, or activity intolerance Respiratory: No shortness of breath, cough, or wheezing Musculoskeletal: Pain to right shoulder and right foot and ankle Gastrointestinal: No abdominal pain, constipation, diarrhea, or vomiting Genitourinary: No dysuria or hematuria Neurological: No numbness, tingling, weakness, or headache Psychiatric: No mood changes [facility] Medical History (Updated 10/26/24 @ 11:05 by Laura Cabral) Arthritis of right acromioclavicular joint ?M19.011 - Primary osteoarthritis, right shoulder (ICD-10) Acromioclavicular joint arthritis ?M19.019 - Primary osteoarthritis, unspecified shoulder (ICD-10) Accessory navicular bone of both feet ?Q74.2 - Other congenital malformations of lower limb(s), including pelvic girdle (ICD-10) Navicular fracture of ankle ?S92.253A - Displaced fracture of navicular [scaphoid] of unspecified foot, initial encounter for closed fracture (ICD-10) Osteoarthritis ?M19.90 - Unspecified osteoarthritis, unspecified site (ICD-10) Insomnia ?G47.00 - Insomnia, unspecified (ICD-10) Anxiety ?F41.9 - Anxiety disorder, unspecified (ICD-10) Restless leg ?G25.81 - Restless legs syndrome (ICD-10) GERD (gastroesophageal reflux disease) ?K21.9 - Gastro-esophageal reflux disease without esophagitis (ICD-10) Diabetes ?E11.9 - Type 2 diabetes mellitus without complications (ICD-10) Surgical History (Updated 10/26/24 @ 10:36 by Laura Cabral) History of cholecystectomy ?Z90.49 - Acquired absence of other specified parts of digestive tract (ICD-10) Family History (Updated 10/26/24 @ 10:32 by Laura Cabral) Other Family history of COPD (chronic obstructive pulmonary disease) Family history of coronary artery disease Family history of diabetes mellitus Family history of seizures Social History (Updated 10/26/24 @ 10:30 by Laura Cabral) Within the past year, how often did you have a drink containing alcohol: never Score interpretation: A score less than 3 is consistent with normal alcohol consumption. Smoking status: Never smoker Non-prescribed substance use: denies use Previous occupational history: [employer] Highest level of school completed/degree received: high school graduate Little interest or pleasure in doing things: not at all Feeling down, depressed, or hopeless: not at all Meds Home Medications and Allergies Home Medications ?Medication ?Instructions ?Recorded ?Confirmed ?Type cholecalciferol (vitamin D3) 125 500 mcg PO QAM 10/26/24 10/26/24 History mcg (5,000 unit) tablet escitalopram oxalate 20 mg tablet 20 mg PO QAM 10/26/24 10/26/24 History glipizide 5 mg tablet 5 mg PO QAM 10/26/24 10/26/24 History metformin 500 mg tablet 500 mg PO BID 10/26/24 10/26/24 History oxycodone-acetaminophen 5 mg-325 1 tab PO Q12H PRN pain 10/26/24 10/26/24 History mg tablet phentermine 37.5 mg tablet 37.5 mg PO QAM 10/26/24 10/26/24 History trazodone 100 mg tablet 100 mg PO QPM 10/26/24 10/26/24 History Allergies Allergy/AdvReac Type Severity Reaction Status Date / Time Sulfa (Sulfonamide Allergy Severe Hives Verified 10/26/24 10:22 Antibiotics) Exam Narrative Exam Narrative: Constitutional: Awake, alert, comfortable, well-appearing, nontoxic, interactive, vital signs as charted Head: Normocephalic, atraumatic Eyes: Conjunctiva and lids normal to inspection, pupils normal ENT: posterior oropharynx clear, oral mucosa moist Neck: Supple, normal appearance, normal range of motion, no meningeal signs, no lymphadenopathy Respiratory: No respiratory distress, breath sounds clear Cardiovascular: Regular rate and rhythm, strong and regular heart tones Abdomen: Nontender Musculoskeletal: Tenderness with palpation to the right shoulder anteriorly and overlying the right acromioclavicular joint forward flexion not beyond 90 degrees abduction not beyond 90 degrees. Patient also with a cam boot to the right foot with associated hairline fracture to the navicular bone Skin: No rashes or induration, no lesions, only visible skin inspected Neuro: No neurological deficits, normal sensation Psychiatric: Oriented ?3, normal affect Assessment and Plan Assessment and Plan (1) Arthritis of right acromioclavicular joint: Plan Plan is for right shoulder arthroscopic distal clavicle excision, possible open with Dr. Snyder on 11/05/2024
[2024-10-26 11:02] LABS: Basophils Absolute Auto 0.1 10^3/uL (0.0-0.1); Basophils Percent Auto 0.5 % (0.2-2.0); Eosinophils Absolute Auto 0.3 10^3/uL (0.0-0.7); Hematocrit 39.1 % (36.0-48.0); Hemoglobin 11.9 g/dL (12.0-16.0); Immature Granulocytes Abs Auto 0.06 10^3/uL (0.00-0.03); Immature Granulocytes Pct Auto 0.5 % (0.0-0.5); Lymphocytes Absolute Auto 1.9 10^3/uL (1.2-3.8); Lymphocytes Percent Auto 17.1 % (20.5-60.0); Mean Corpuscular HGB Conc 30.4 g/dL (29.9-35.2); Mean Corpuscular Hemoglobin 25.2 pg (26.7-34.0); Mean Corpuscular Volume 82.8 fL (81.0-99.0); Mean Platelet Volume 9.6 fL (9.5-13.5); Monocytes Absolute Auto 0.4 10^3/uL (0.3-0.8); Neutrophils Absolute Auto 8.3 10^3/uL (1.4-6.5); Neutrophils Percent Auto 74.9 % (43.0-75.0); Platelet Count 342 10^3/uL (150-450); Red Blood Count 4.72 10^6/uL (4.20-5.40); Red Cell Distribution Width 14.6 % (11.0-15.0); White Blood Count 11.1 10^3/uL (4.0-11.0)
[2024-10-26 11:12] LABS: Anion Gap 11.9; Calcium 9.1 mg/dL (8.5-10.1); Carbon Dioxide 27.1 mmol/L (21.0-32.0); Chloride 104 mmol/L (98-107); Estimated GFR (African America >60 (>=60 mL/min/1.73m^2); Estimated GFR (Non-African Ame >60 (>=60 mL/min/1.73m^2); Glucose 188 mg/dL (74-106); Sodium 139 mmol/L (136-145)
== END 2024-10-26 10:04 | disposition home or self-care (01) ==
LOC: PST 10:05
PROVIDERS: PCP Nurse Practitioner Family; Visit Provider Orthopaedic Surgery
DX: Z01.810 Encounter for preprocedural cardiovascular examination (principal); Z01.812 Encounter for preprocedural laboratory examination; Z01.818 Encounter for other preprocedural examination; M19.011 Primary osteoarthritis, right shoulder
CPT/HCPCS: 36415; 80048; 85025; 93005; G0463

== ENCOUNTER 2024-11-05 18:57 | Observation (INO) | payer BC, SELFPAY ==
[2024-10-26 10:30] VITALS: BP 128/81; PULSE 107; TEMP 36.3; O2SAT 99; BMI 61.7
[2024-11-05] VITALS (35 sets, daily range): BP systolic 106–164; BP diastolic 65–107; PULSE 82–109; TEMP 35.9–37.3; O2SAT 91–96; BMI 63.7
[2024-11-05 12:08] LABS: Basophils Absolute Auto 0.1 10^3/uL (0.0-0.1); Basophils Percent Auto 0.5 % (0.2-2.0); Eosinophils Absolute Auto 0.4 10^3/uL (0.0-0.7); Eosinophils Percent Auto 3.3 % (0.9-7.0); Hematocrit 40.3 % (36.0-48.0); Hemoglobin 12.1 g/dL (12.0-16.0); Immature Granulocytes Abs Auto 0.06 10^3/uL (0.00-0.03); Immature Granulocytes Pct Auto 0.5 % (0.0-0.5); Lymphocytes Absolute Auto 2.3 10^3/uL (1.2-3.8); Lymphocytes Percent Auto 19.5 % (20.5-60.0); Mean Corpuscular Hemoglobin 25.2 pg (26.7-34.0); Mean Platelet Volume 9.3 fL (9.5-13.5); Monocytes Absolute Auto 0.6 10^3/uL (0.3-0.8); Monocytes Percent Auto 4.9 % (1.7-12.0); Neutrophils Absolute Auto 8.4 10^3/uL (1.4-6.5); Neutrophils Percent Auto 71.3 % (43.0-75.0); Platelet Count 340 10^3/uL (150-450); White Blood Count 11.8 10^3/uL (4.0-11.0)
[2024-11-05 12:22] LABS: HCG Qualitative NEGATIVE (NEGATIVE); Internal Control Within Normal Limits
[2024-11-05] MEDS: LACTATED RINGER'S SOLUTION 1,000 ML 50 ML IV (13:15)
[2024-11-05] MEDS: CEFAZOLIN SODIUM 3,000 MG in 0.9 % SODIUM CHLORIDE 100 ML 200 MG IV (13:53)
[2024-11-05] MEDS: EPINEPHRINE HCL PF 1 MG/ML AMPULE 3 MG INJ (15:00)
--- NOTE | 2024-11-05 15:47 | PM.ORPRC ---
Procedure Note Date of procedure: 11/05/24 Pre-op diagnosis: Right shoulder acromioclavicular joint arthritis Post-op diagnosis: same as pre-op Procedure: Procedure: Right shoulder arthroscopic distal clavicle excision Operation: After informed consent was obtained the patient was brought to the operating room where general anesthetic was administered. Preoperatively regional block was placed. Exam under anesthesia of the right shoulder revealed full range of motion and no instability. Patient was placed in the semibeachchair position with the head of bed elevated 50 degrees. Right shoulder was prepped and draped in the usual sterile fashion. Diagnostic arthroscopy was performed the standard anterior, posterior, and lateral arthroscopy portals. Findings included intact biceps tendon without any tearing. Superior and anterior labrum are intact. Posterior inferior labrum had superficial fraying without unstable flaps. Articular cartilage of the glenohumeral joint was intact. Subscapularis, infraspinatus, supraspinatus tendons were all intact. Arthroscope was introduced in the subacromial space and there was moderate bursal inflammation which was removed the arthroscopic shaver. Rotator cuff tendons all appeared normal from the bursal side. Distal clavicle was identified and using a bur the distal 7 mm of clavicle was excised. Shoulder was drained of arthroscopy fluid. Portals were closed with nylon suture. Sterile dressing was placed. Sling was placed. Patient was awakened and brought to the recovery room in stable condition. There were no intraoperative or immediate postoperative complications. Anesthesia: GETA Estimated blood loss (mL): 5 Pathology: none sent Condition: stable Disposition: PACU
[2024-11-05] MEDS: ACETAMINOPHEN 325 MG TABLET 650 MG PO (16:32)
--- NOTE | 2024-11-05 17:14 | PC.NURSE ---
pt positioned per anesthesia,2L O2 applied per policy. block began at 1347 and was completed at 1351. pt tolerated well without complaints. bed to lowest position with siderail up and call light within reach. pts vitals WNL throughout procedure,pt to be monitored until taken back to the OR.
--- NOTE | 2024-11-05 17:16 | PC.NURSE ---
BLOCK VITALS; 1347:145/94, 78 HR, 96% 2L O2 1351: 146/94, 79HR, 95% 2L O2
[2024-11-05] MEDS: PROMETHAZINE HCL 12.5 MG in 0.9 % SODIUM CHLORIDE 50 ML 202 MG IV (18:20)
--- NOTE | 2024-11-05 19:12 | XR_ITS ---
The [address] [address] Patient Name: NOEL ROCHE MRN: [id number] date: 1990 Sex: F Assigned Patient Location: [place] Current Patient Location: [place] Accession/Order Number: [id number] Exam Date: 11/05/2024 19:25 Report Date: 11/05/2024 22:07 At the request of: SHANNON SARMIENTO Procedure: XR chest 1V EXAM: XR chest 1V HISTORY: Dyspnea COMPARISON: None. TECHNIQUE: Chest X-ray AP, 1 view FINDINGS: Support devices: None. Lungs/pleura: There are low lung volumes. Diffuse bilateral perihilar airspace opacities and external markings, likely representing pulmonary edema. However, multifocal pneumonia cannot be excluded. No pneumothorax. Heart and mediastinum: Normal contours. Bones: No acute abnormality identified. XR/XR chest 1V Impression: There are low lung volumes. Diffuse bilateral perihilar airspace opacities and external markings, likely representing pulmonary edema. However, multifocal pneumonia cannot be excluded. Electronically authenticated by: CARLOS CRISTOBAL Date: 11/05/2024 22:07
--- NOTE | 2024-11-05 19:16 | P.PN_ITS ---
Progress Note: Subjective Subjective Interval history: Comes patient for postoperative hypoxia, was at 1 point on 8 L and 92%, patient admitted overnight for observation I saw patient up in the medical surgical floor, she was not complaining of any pain she had a nerve block done, does not really feel like she is having difficulty breathing but had somewhat labored respiratory pattern Exam Constitutional Vital Signs, click to edit/add: Last Vital Signs Temp 98.1 F 11/05/24 19:02 Pulse 85 11/05/24 19:02 Resp 20 11/05/24 19:02 BP 122/80 11/05/24 19:02 Pulse Ox 92 L 11/05/24 19:02 O2 Del Method Nasal Cannula 11/05/24 19:02 O2 Flow Rate 3 11/05/24 19:02 Documenting provider has reviewed patient's vital signs: yes Common normals: apparent distress (Mild labored respirations) Chest Common normals: inspection of chest normal and palpation of chest normal Respiratory Common normals: normal respiratory effort, no retractions, no use of accessory muscles and clear to auscultation bilaterally Effort & inspection: tachypneic Auscultation: diminished lung sounds Cardio Common normals: regular rate and regular rhythm GI Common normals: Normal to inspection, nondistended, normoactive bowel sounds present and soft to palpation Progress Note: Objective Labs Labs: Short CBC 11/05/24 Range/Units 12:03 WBC 11.8 H (4.0-11.0) 10^3/uL Hgb 12.1 (12.0-16.0) g/dL Hct 40.3 (36.0-48.0) % Plt Count 340 (150-450) 10^3/uL Progress Note: A&P Assessment and Plan (1) Insomnia: (2) GERD (gastroesophageal reflux disease): (3) Diabetes: Plan Admission findings: Acute hypoxic respiratory failure requiring 8 L of supplemental oxygen and only achieving a 92% saturation, sinus tachycardia, respiratory distress, uncontrolled hypertension secondary to postoperative hypoxia-workup in progress Postoperative hypoxia-is slowly improving, down to 3 to 4 L of supplemental oxygen with saturations in the low 90s. Check chest x-ray and some basic labs aerosol treatments as needed further testing depending on progress and she is cu rrently making progress as she was up to 8 L at 1 point Diabetes mellitus-insulin sliding scale Insomnia-continue with home medications Morbid obesity-diet management Admission status: Patient with acute hypoxia postoperatively, workup in progress, greater than 50% chance that she will be discharged tomorrow so medically necessary treatment will only span 1 midnight. Observation status.
[2024-11-05] MEDS: IPRATROPIUM/ALBUTEROL SULFATE 3 ML AMPUL.NEB IH ×2 (20:21→23:32)
[2024-11-05 20:23] LABS: Glucometer 217 mg/dL (74-106)
[2024-11-05] MEDS: TRAZODONE HCL 50 MG TABLET 100 MG PO (21:31)
[2024-11-05] MEDS: METFORMIN HCL 500 MG TABLET PO (21:31)
[2024-11-05] MEDS: OXYCODONE HCL/ACETAMINOPHEN 5MG/325MG 1 TAB PO (21:34)
[2024-11-05 21:39] LABS: Basophils Percent Auto 0.3 % (0.2-2.0); Eosinophils Percent Auto 0.1 % (0.9-7.0); Hematocrit 41.1 % (36.0-48.0); Hemoglobin 12.5 g/dL (12.0-16.0); Immature Granulocytes Abs Auto 0.15 10^3/uL (0.00-0.03); Lymphocytes Absolute Auto 1.1 10^3/uL (1.2-3.8); Lymphocytes Percent Auto 6.9 % (20.5-60.0); Mean Corpuscular HGB Conc 30.4 g/dL (29.9-35.2); Mean Corpuscular Hemoglobin 25.4 pg (26.7-34.0); Mean Corpuscular Volume 83.5 fL (81.0-99.0); Mean Platelet Volume 9.5 fL (9.5-13.5); Monocytes Absolute Auto 0.1 10^3/uL (0.3-0.8); Monocytes Percent Auto 0.5 % (1.7-12.0); Neutrophils Percent Auto 91.2 % (43.0-75.0); Platelet Count 379 10^3/uL (150-450); Red Blood Count 4.92 10^6/uL (4.20-5.40); Red Cell Distribution Width 14.9 % (11.0-15.0); White Blood Count 15.3 10^3/uL (4.0-11.0)
[2024-11-05 22:07] LABS: Anion Gap 12.2; BUN Creatinine Ratio 12.6; Calcium 8.8 mg/dL (8.5-10.1); Carbon Dioxide 27.6 mmol/L (21.0-32.0); Chloride 103 mmol/L (98-107); Estimated GFR (African America >60 (>=60 mL/min/1.73m^2); Estimated GFR (Non-African Ame 51 (>=60 mL/min/1.73m^2); Glucose 262 mg/dL (74-106); Potassium 3.8 mmol/L (3.5-5.1); Sodium 139 mmol/L (136-145)
[2024-11-05] MEDS: GUAIFENESIN 600 MG TAB.ER.12H PO (23:03)
[2024-11-05 23:22] LABS: PCO2 VBG 44.8 mmHg (40.0-52.0); pH VBG 7.387 (7.330-7.430)
[2024-11-06 02:21] LABS: Glucometer 204 mg/dL (74-106)
[2024-11-06 04:28] VITALS: PULSE 67; O2SAT 96
[2024-11-06] MEDS: IPRATROPIUM/ALBUTEROL SULFATE 3 ML AMPUL.NEB IH (04:28)
--- NOTE | 2024-11-06 04:32 | RESP.RT ---
Titrated to 2 lpm
--- NOTE | 2024-11-06 04:33 | RESP.RT ---
Titrated to 2 lpm
[2024-11-06 05:25] VITALS: BP 100/68; PULSE 67; TEMP 36.4; O2SAT 96
[2024-11-06 05:45] LABS: PCO2 VBG 51.8 mmHg (40.0-52.0); pH VBG 7.326 (7.330-7.430)
[2024-11-06 06:02] LABS: Basophils Percent Auto 0.2 % (0.2-2.0); Hematocrit 38.3 % (36.0-48.0); Hemoglobin 11.7 g/dL (12.0-16.0); Immature Granulocytes Abs Auto 0.14 10^3/uL (0.00-0.03); Immature Granulocytes Pct Auto 0.8 % (0.0-0.5); Lymphocytes Absolute Auto 1.6 10^3/uL (1.2-3.8); Lymphocytes Percent Auto 8.8 % (20.5-60.0); Mean Corpuscular HGB Conc 30.5 g/dL (29.9-35.2); Mean Corpuscular Hemoglobin 25.7 pg (26.7-34.0); Monocytes Absolute Auto 0.8 10^3/uL (0.3-0.8); Monocytes Percent Auto 4.4 % (1.7-12.0); Neutrophils Absolute Auto 15.3 10^3/uL (1.4-6.5); Neutrophils Percent Auto 85.8 % (43.0-75.0); Platelet Count 353 10^3/uL (150-450); Red Blood Count 4.56 10^6/uL (4.20-5.40); Red Cell Distribution Width 14.9 % (11.0-15.0); White Blood Count 17.8 10^3/uL (4.0-11.0)
[2024-11-06 06:16] LABS: BUN Creatinine Ratio 18.3; Calcium 8.9 mg/dL (8.5-10.1); Carbon Dioxide 29.2 mmol/L (21.0-32.0); Chloride 106 mmol/L (98-107); Estimated GFR (African America >60 (>=60 mL/min/1.73m^2); Estimated GFR (Non-African Ame >60 (>=60 mL/min/1.73m^2); Glucose 171 mg/dL (74-106); Potassium 4.2 mmol/L (3.5-5.1); Sodium 141 mmol/L (136-145)
[2024-11-06] MEDS: ACETAMINOPHEN 500 MG TABLET 1000 MG PO (06:32)
--- NOTE | 2024-11-06 07:32 | PC.NURSE ---
LATE ENTRY: 11/05/2024 UPON TRANSFER TO PHASE 2 PATIENT REMAINS ON 4 LITERS OF OXYGEN NASAL CANNULA. PATIENT STATES SHE FEELS SHORT OF BREATH AND THIS [facility] EXPLAINED THAT SHE WILL REMIAN ON THE OXYGEN FOR NOW AND WE WILL TRY TO REMOVE IT SO SHE CAN BE DISCHARGED. UPDATED DR. NEWTON ABOUT PATIENT ON THE OXYGEN AND INABILITY TO WEAN PATIENT OFF. AMAN STATES IF UNABLE TO CONSULT HOSPITALIST AND HAVE HER STAY OVERNIGHT.
[2024-11-06 07:35] VITALS: O2SAT 94
--- NOTE | 2024-11-06 07:35 | RESP.RT ---
SpO2 checked while patient walking soto on room air
[2024-11-06 07:52] VITALS: BP 100/65; PULSE 89; TEMP 36.5; O2SAT 94
[2024-11-06 07:55] LABS: Glucometer 135 mg/dL (74-106)
[2024-11-06] MEDS: GLIPIZIDE 5 MG TABLET PO (08:44)
[2024-11-06] MEDS: ESCITALOPRAM 10 MG TABLET 20 MG PO (08:45)
[2024-11-06] MEDS: METFORMIN HCL 500 MG TABLET PO (08:45)
[2024-11-06] MEDS: CHOLECALCIFEROL (VITAMIN D3) 125 MCG/5,000 UNIT TABLET PO (08:45)
--- NOTE | 2024-11-06 08:55 | P.DS_ITS ---
DS: Providers Provider Date of admission: 11/06/24 07:34 Primary care physician: MONIQUE EMMANUEL Consults: 11/05/24 Consult to Hospitalist Routine Consulting Provider: Erich Garcia Reason for consultation: admit post op oxygen desaturation Has provider been notified: Yes 11/05/24 19:11 Physical Therapy Eval and Treat Routine Reason for consultation: Eval and Treat Has provider been notified: No DS: Diagnosis Discharge Diagnosis (1) Insomnia: (2) GERD (gastroesophageal reflux disease): (3) Diabetes: Plan Admission findings: Acute hypoxic respiratory failure requiring 8 L of supplemental oxygen and only achieving a 92% saturation, sinus tachycardia, respiratory distress, uncontrolled hypertension secondary to postoperative hypoxia-workup in progress Postoperative hypoxia-is slowly improving, down to 3 to 4 L of supplemental oxygen with saturations in the low 90s. Check chest x-ray and some basic labs aerosol treatments as needed further testing depending on progress and she is currently making progress as she was up to 8 L at 1 point Diabetes mellitus-insulin sliding scale Insomnia-continue with home medications Morbid obesity-diet management Admission status: Patient with acute hypoxia postoperatively, workup in progress, greater than 50% chance that she will be discharged tomorrow so medically necessary treatment will only span 1 midnight. Observation status. ? DS: Summary Hospital Course Hospital Course: Patient admitted with significant hypoxia postoperatively she was on 8 L and satting just above 90%. Unable to wean that in the immediate postoperative period. She was admitted to observation. Able to wean it down to 3 L overnight time. This morning she has been up and ambulating off of supplemental oxygen, with normal saturation of 95% on room air. Likely secondary to hypopnea secondary to surgery. Chest x-ray does show pneumonia she does have a significant leukocytosis although both of those could be related to the surgery will send patient home on oral antibiotics. Status at Discharge Overall status at discharge: patient is back to baseline Time Spent with Patient Time attestation: Total time spent providing and/or coordinating discharge services: Time spent: greater than 30 minutes Exam Constitutional Vital Signs, click to edit/add: Last Vital Signs Temp 97.7 F 11/06/24 07:52 Pulse 89 11/06/24 07:52 Resp 28 H 11/06/24 07:52 BP 100/65 11/06/24 07:52 Pulse Ox 94 L 11/06/24 07:52 O2 Del Method Room Air 11/06/24 07:52 O2 Flow Rate 3 11/06/24 05:25 Documenting provider has reviewed patient's vital signs: yes Common normals: no apparent distress, average body habitus, oriented x3, no limitations, healthy appearing, alert and well nourished Lymph Lymphatic: no lymphadenopathy noted Chest Common normals: inspection of chest normal Respiratory Common normals: normal respiratory effort and no retractions Cardio Common normals: regular rate and regular rhythm GI Common normals: Normal to inspection, nondistended, normoactive bowel sounds present DS: Data Data Completed and Pending Labs on day of discharge: Labs from last 24 hours 11/06/24 11/06/24 11/06/24 07:53 05:14 02:20 WBC 17.8 H RBC 4.56 Hgb 11.7 L Hct 38.3 MCV 84.0 MCH 25.7 L MCHC 30.5 RDW 14.9 Plt Count 353 MPV 10.0 Neut % (Auto) 85.8 H Lymph % (Auto) 8.8 L Dewey % (Auto) 4.4 Eos % (Auto) 0.0 L Baso % (Auto) 0.2 Neut # (Auto) 15.3 H Lymph # (Auto) 1.6 Dewey # (Auto) 0.8 Eos # (Auto) 0.0 Baso # (Auto) 0.0 Abs Immat Gran (auto) 0.14 H Imm/Tot Granulo (auto) 0.8 H VBG pH 7.326 L VBG pCO2 51.8 Sodium 141 Potassium 4.2 Chloride 106 Carbon Dioxide 29.2 Anion Gap 10.0 BUN 17.0 Creatinine 0.93 Est GFR ( Amer) >60 Est GFR (Non-Af Amer) >60 BUN/Creatinine Ratio 18.3 Glucose 171 H Calcium 8.9 NT-Pro-B Natriuret Pep Serum HCG, Qual POC Glucose 135 H 204 H 11/05/24 11/05/24 11/05/24 23:09 21:32 20:21 WBC 15.3 H RBC 4.92 Hgb 12.5 Hct 41.1 MCV 83.5 MCH 25.4 L MCHC 30.4 RDW 14.9 Plt Count 379 MPV 9.5 Neut % (Auto) 91.2 H Lymph % (Auto) 6.9 L Dewey % (Auto) 0.5 L Eos % (Auto) 0.1 L Baso % (Auto) 0.3 Neut # (Auto) 14.0 H Lymph # (Auto) 1.1 L Dewey # (Auto) 0.1 L Eos # (Auto) 0.0 Baso # (Auto) 0.0 Abs Immat Gran (auto) 0.15 H Imm/Tot Granulo (auto) 1.0 H VBG pH 7.387 VBG pCO2 44.8 Sodium 139 Potassium 3.8 Chloride 103 Carbon Dioxide 27.6 Anion Gap 12.2 BUN 15.0 Creatinine 1.19 H Est GFR ( Amer) >60 Est GFR (Non-Af Amer) 51 L BUN/Creatinine Ratio 12.6 Glucose 262 H Calcium 8.8 NT-Pro-B Natriuret Pep 78.0 Serum HCG, Qual POC Glucose 217 H 11/05/24 12:03 WBC 11.8 H RBC 4.80 Hgb 12.1 Hct 40.3 MCV 84.0 MCH 25.2 L MCHC 30.0 RDW 15.0 Plt Count 340 MPV 9.3 L Neut % (Auto) 71.3 Lymph % (Auto) 19.5 L Dewey % (Auto) 4.9 Eos % (Auto) 3.3 Baso % (Auto) 0.5 Neut # (Auto) 8.4 H Lymph # (Auto) 2.3 Dewey # (Auto) 0.6 Eos # (Auto) 0.4 Baso # (Auto) 0.1 Abs Immat Gran (auto) 0.06 H Imm/Tot Granulo (auto) 0.5 VBG pH VBG pCO2 Sodium Potassium Chloride Carbon Dioxide Anion Gap BUN Creatinine Est GFR ( Amer) Est GFR (Non-Af Amer) BUN/Creatinine Ratio Glucose Calcium NT-Pro-B Natriuret Pep Serum HCG, Qual Negative POC Glucose Discharge Plan Discharge Condition: Good Discharge Medications: New oxycodone-acetaminophen [Percocet] 5-325 mg tablet 1 tab PO Q4H PRN (Reason: pain) 7 Days Qty: 40 0RF ketorolac 10 mg tablet 10 mg PO TID 5 Days Qty: 15 0RF levofloxacin 750 mg tablet 750 mg PO DAILY 10 Days Qty: 10 0RF cefdinir 300 mg capsule 600 mg PO DAILY Qty: 20 0RF Rx Instructions: Cancel levofloxacin Continued cholecalciferol (vitamin D3) 125 mcg (5,000 unit) tablet 125 mcg PO QAM escitalopram oxalate 20 mg tablet 20 mg PO QAM glipizide 5 mg tablet 5 mg PO QAM phentermine 37.5 mg tablet 37.5 mg PO QAM trazodone 100 mg tablet 100 mg PO QPM PRN (Reason: sleep) metformin 500 mg tablet 500 mg PO BID Diet: advance to your usual diet Print Language: Guinean Patient Instructions: Oxycodone/Acetaminophen (By mouth), Shoulder Arthroscopy (DC) Activity Restrictions/Additional Instructions: SAME DAY SURGERY INSTRUCTIONS 1. Do not drive or operate hazardous machinery. 2. Do not make important personal or business decisions for 24 hours. 3. Do not drink alcoholic beverages. 4. Do not smoke tobacco products. 5. Eat light foods initially (i.e., Jell-O, soups, etc) and drink plenty of fluids. 6. If your bandages become soaked with a bright red blood, place another dressing pad over your bandages. (Do not remove original bandage.) Call your surgeon for further instructions. A small amount of bright red blood is to be expected. 7. Limit your activities. Do not engage in heavy work until your surgeon gives you permission. 8. Report the following signs or any questions regarding your physical condition to your surgeon immediately: Excessive swelling of, or around, the wound area Redness Temperature of 101 (degrees F) or above Excessive pain 9. Call your surgeon, , for any questions regarding your surgery. Call [phone] for urgent questions after 5PM until 8AM 10. Call for an appointment to see your surgeon in 2 weeks if not already scheduled. SPECIAL INSTRUCTIONS AND MEDICATIONS 1. Use sling for 4- 6 weeks based on symptoms. Active shoulder motion is allowed. Elbow range of motion is encouraged. 2. Move fingers and wrist to improve circulation. 3. Use prescribed pain pill as directed by the doctor. Take Toradol 3 times a day for 5 days. When 5 days of Toradol complete switch to Ibuprofen. In between Toradol take Percocet as needed for pain relief. Maximum Percocet dose is 2 pills every 4 hours. When Percocet no longer needed switch to Tylenol. 4. Keep your dressing on an dry for 2 days then remove and replace with new gauze and tape or occlusive Band-Aids 5. Use ice as needed for pain relief 6. Remove operative bandages: 11/07. Place new dressing/or band aids 7. Keep incisions/dressings dry. If they happen to get wet remove wet dressing and place a new dry dressing. Follow Up Appointments: Monique Emmanuel Nov [address] Snyder Oct 16 at 9:40AM at [facility]
--- NOTE | 2024-11-06 09:03 | CM.NOTE ---
Rounds made with Dr. Garcia, discussed with pt about weaning off oxygen today and if tolerates discharge to home this afternoon. Discussed with Respiratory therapy weaning off oxygen today.
[2024-11-06] MEDS: LEVOFLOXACIN IN DEXTROSE 5 % 750 MG/150 ML PREMIX 100 MG IV (09:09)
[2024-11-06] MEDS: GUAIFENESIN 600 MG TAB.ER.12H PO (10:37)
[2024-11-06] MEDS: OXYCODONE HCL/ACETAMINOPHEN 5MG/325MG 1 TAB PO (10:37)
[2024-11-06 10:57] VITALS: BP 105/67; PULSE 80; TEMP 36.6; O2SAT 96
--- NOTE | 2024-11-07 14:03 | CM.DCFOLLOWU ---
Person spoke with:patient How are you feeling?well How is your pain? not too bad Did you understand your discharge instructions?yes Do you have any questions about your discharge instructions?no Were you given any prescriptions at discharge?yes Were you able to get your prescriptions filled?yes Do you understand how to take your medications as ordered?yes Do you have any questions about your follow up appointment and do you plan to keep your follow up appointment? no questions, reviewed follow ups Is there anything else that you would like to discuss?no Questions/Comments/Concerns/Other:none
== END 2024-11-06 14:04 | disposition home or self-care (01) ==
LOC: SURGOUT 11-06 06:21 → MS 11-06 06:21
PROVIDERS: Anesthesiology; Orthopaedic Surgery; Registered Nurse; Admitting Provider Family Medicine; PCP Nurse Practitioner Family; Visit Provider Family Medicine
PROC: (CPT 1630; principal; 2024-11-05 13:45)
DX: M19.011 Primary osteoarthritis, right shoulder (principal); E11.9 Type 2 diabetes mellitus without complications; Z90.49 Acquired absence of other specified parts of digestive tract; Z79.84 Long term (current) use of oral hypoglycemic drugs; R09.02 Hypoxemia; G21.9 Secondary parkinsonism, unspecified; G47.00 Insomnia, unspecified; J95.821 Acute postprocedural respiratory failure; I10 Essential (primary) hypertension; E66.01 Morbid (severe) obesity due to excess calories; Z68.43 Body mass index [BMI] 50.0-59.9, adult; R00.0 Tachycardia, unspecified; J18.9 Pneumonia, unspecified organism; D72.829 Elevated white blood cell count, unspecified
CPT/HCPCS: 29824; 36415; 64415; 71045; 80048; 82800; 82948; 83880; 84703; 85025; 87070; 94640; 94667; 94668; 94761; 96365; 97161; G0378; J0330; J0690; J1100; J1885; J2250; J2405; J2704; J2795; J3010

== ENCOUNTER 2024-11-17 14:59 | Emergency (ER) | payer BC, SELFPAY ==
--- OUTSIDE RECORDS SUMMARY | 2024-11-17 15:12 | XMS_ITS | CCD ---
Author Organization [facility] Care Team Providers Care Straightening Press Operator Name Role Phone Monique Dudley Unavailable MONIQUE [...] Consulting Unavailsandra Dudley NP-C Monique Attending Provider [phone] LORI Emmanuel Primary Care Provider [phone] MONIQUE EMMANUEL Primary Care Physician Pato Koehler [...] Unavailable Erich Garcia MD Primary Care Provider [phone] Jaime Camargo DO Unavailable Brown, DPM Pato A Attending Unavailabl e [...] Attending Unavailable BROWN, PATO A Attending Unavailable Unallocated MD, Noms Provider Primary Care Provi anna Unallocated MD, Noms Provider Primary Care Provi anna Allergies Allergy Classification Reported Allergen(s) Allergy Type Date of Onset Reaction(s) Facility (1 source) Egg protein Drug allergy [facility] Other (1 source) Sulf-10 Drug allergy [facility] Other (1 source) Sulfonamides (Antibiotic) Drug allergy (disorder) 3 [facility] (4 sources) Sulfonamides (Antibiotic); Translations: [Sulfa (Sulfonamide Antibiotics)] Allergy to substance 4 [facility] (4 sources) Egg Derived; Translations: [Egg Derived] Allergy to substance 4 [facility] (5 sources) Sulfonamides (Antibiotic); Translations: [sulfa drugs] Drug allergy [facility] (20 sources) Sulfonamides (Antibiotic) Drug Allergy Rash, Hives [facility] Medications Current Medications Medication Drug Class(es) Dates Sig (Normalized) Sig (Original) acetaminophen 325 mg / HYDROcodone bitartrate 5 mg oral tablet (2 sources) Opioid Agonist Start: 08-30-2024 End: 09-04-2024 take 1 tablet by mouth every eight hours as needed for pain HYDROcodone-aceta minophen ([place]) 5-325 MG tablet Indications: Pain Take 1 [...] 09/12/2024 Active cholecalciferol 0.125 mg oral tablet (20 sources) Vitamin D Start: 01-30-2024 cholecalciferol (Vitamin D-3) 125 MCG (5000 UT) tablet 1 (one) time each day at the same time 01/30/2024 Active escitalopram 20 mg oral tablet (20 sources) Serotonin Reuptake Inhibitor Start: 04-25-2024 take [...] Ordered traZODone hydrochloride 50 mg oral tablet (20 sources) Serotonin Reuptake Inhibitor Start: 05-16-2024 take [...] day at the same time 03/12/2024 Active [place] Sling (3 sources) Start: 02-27-2024 [place] Slin g Active 0 .Route 1 February 27, 2024 12:00am As directed Vitamin D (3 sources) Start: 04-25-2024 Vitamin D Oral , Daily, Refills(s) 0, Prophylaxis Start Date: 04/25/24 Status: Ordered Problems Active Problems Problem Classification Problem Date Documented Date Episodic/Chronic Anxiety disorders (20 sources) Anxiety; Translations: [Anxiety disorder, unspecified] Onset: 07-21-2024 04-25-2024 Chronic Diabetes mellitus without complication (20 sources) Type 2 diabetes mellitus without complications; Translations: [Diabetes mellitus] Onset: 08-25-2022 Chronic Disorders of lipid metabolism (4 sources) Pure hyperglyceridemia; Translations: [PURE HYPERGLYCERIDEMIA] Onset: 11-15-2022 Chronic Esophageal disorders (20 sources) Gastroesophageal reflux disease; Translations: [Gastro-esophageal reflux disease without esophagitis] Onset: 07-21-2024 04-25-2024 Chronic Fracture of lower limb (4 sources) Stress fracture of right foot; Translations: [Stress fracture, right foot, initial encounter for fracture] 10-04-2024 Episodic Nutritional deficiencies (20 sources) Vitamin D deficiency, unspecified; Translations: [Vitamin [...] girdle] Onset: 05-16-2024 Chronic Other congenital anomalies (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; 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), including pelvic girdle] 08-27-2024 Chronic Other congenital anomalies (3 sources) Accessory left tarsal navicular bone; 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), including pelvic girdle] 07-19-2024 Chronic Other connective tissue disease (2 sources) [...] due to pollen] Chronic Other upper respiratory disease (2 sources) Chronic rhinitis; Translations: [Chronic rhinitis] 07-26-2024 Chronic Other upper respiratory infections (4 sources) Chronic sinusitis, unspecified; Translations: [CHRONIC SINUSITIS UNSPECIFIED] Onset: 01-05-2023 Chronic Pancreatic disorders (not diabetes) (3 sources) Pancreatitis 02-08-2014 Episodic Unclassified (1 source) CONTACT W/AND (SUSP) EXPOS COVID-19; Translations: [CONTACT W/AND (SUSP) EXPOS COVID-19] Onset: 01-06-2023 Past or Other Problems Problem Classification Problem Date Documented Date Episodic/Chronic Abdominal pain (4 sources) Lower abdominal pain, unspecified; Translations: [Unspecified abdominal pain] Onset: 06-01-2022 Episodic Administrative/socia l admission (1 source) Dietary counseling and surveillance; Translations: [DIETARY COUNSELING AND SURVEILLANCE] Onset: 08-28-2022 Episodic Disorders of teeth and jaw (2 sources) Pain of left temporomandibular joint; Translations: [Arthralgia of left temporomandibular joint] 07-26-2024 Episodic Nausea and vomiting (1 source) Nausea; Translations: [NAUSEA] Onset: 06-03-2022 Episodic Other connective tissue disease (1 source) Pain in right finger(s) Onset: 03-22-2022 Resolved: 03-22-2022 Episodic Other connective tissue disease (4 sources) Tendinitis of right posterior tibial tendon; Translations: [Posterior tibial tendinitis, right leg] 07-19-2024 Episodic Other ear and sense organ disorders (2 sources) Otalgia, left ear; Translations: [Otalgia, unspecified] 07-26-2024 Episodic Other ear and sense organ disorders (2 sources) Ear sensations - finding; Translations: [Other specified disorders of left ear] 07-26-2024 Episodic Spondylosis; intervertebral disc disorders; other back problems (4 sources) Sciatica, right side; Translations: [SCIATICA RIGHT SIDE] Onset: 11-28-2022 Episodic Sprains and strains (1 source) Unspecified sprain of right ring finger, initial encounter Onset: 03-22-2022 Resolved: 03-22-2022 Episodic Unclassified (6 sources) Stress fracture of right foot 10-04-2024 Results Test Name Value Interpretation Reference Range Facility Surgical Pathology Reporton 09-12-2024 Surgical Pathology Report [address] [address]- Surgical Pathology Report Collected Date/Time: 09/05/2024 08:32 EDT Pathologist: Joon LONG PhD, Benito Piedra Received Date/Time: 09/06/2024 07:35 EDT Valentino ISAACS, Pato Koehler DPM, Pato Hudson Surgical [...] DIAGNOSIS. Addition of clinical information only. Normal [facility] Comment on above: Performed By: #### [id number] #### [facility] [address] [place] [address] Surgical Pathology Reporton 09-11-2024 Surgical Pathology Report [facility] [address] [facility] [place] [address]- Surgical Pathology Report Collected Date/Time: 09/05/2024 08:32 EDT Pathologist: Joon LONG PhD, Benito Piedra Received Date/Time: 09/06/2024 07:35 EDT Valentino ISAACS, Pato Koehler DPM, Pato Hudson Surgical [...] examination performed unless gross only specified. Normal [facility] Comment on above: Performed By: #### 4 [id number] #### [facility] [address] [place] [address] Basic Metabolic Panelon 04-28 Creatinine Clr Calc Pharmacy 161.75 Normal [facility] Comment on above: Result Comment: PERF ORMED BY: [place] [address] PATHOLOGIST CIGARETTE FILTER INSPECTOR SIMEON BIGGS M.D. Performed By: #### B MP #### [place] [address] [place] GFR/1.73 sq M.predicted MDRD (S/P/Bld) [Vol rate/Area] mL/min/{1.73_m2} Normal [facility] Comment on above: Performed By: #### B MP #### [place] [address] [place] Calcium [Mass/volume] in Ser um or PlasmaOrdered By: Melvin Ruano on 05-16-2024 Calcium [Mass/Vol] 8.8 mg/dL Normal 8.6-10.3 [facility] Comment on above: Performed By: #### B MP #### [address] Capillary blood glucose jaswinder urement by glucometer (mass/volume)Ordered By: Pato Koehler on 05-16-2024 Glucose [Mass/Vol] 106 mg/dL Normal [facility] Comment on above: Random Glucose Refer ence Range is dependent on time and content of last meal. Glucose of more than 200 mg/dL in a nonstressed, ambulatory subject supports the diagnosis of Diabetes Mellitus. Result Comment: Silver Glucose Reference Range is dependent on time and content of last meal. Glucose of more than 200 mg/dL in a nonstressed, ambulatory subject supports the diagnosis of Diabetes Mellitus. Performed By: #### G LULS #### Point of Care testing , Carbon dioxide, total [Moles /volume] in Serum or PlasmaOrdered By: Melvin Ruano on 05-16-2024 CO2 [Moles/Vol] 27.3 mmol/L Normal 21.0-31.0 [facility] Comment on above: Performed By: #### B MP #### [address] Chloride [Moles/volume] in S nikkie or PlasmaOrdered By: Melvin Ruano on 05-16-2024 Chloride [Moles/Vol] 105 mmol/L Normal 98-107 [facility] Comment on above: Performed By: #### B MP #### [address] Creatinine [Mass/volume] in Serum or PlasmaOrdered By: Melvin Ruano on 05-16-2024 Creatinine [Mass/Vol] 0.66 mg/dL Normal 0.60-1.20 [facility] Comment on above: Performed By: #### B MP #### [address] Glucose Poct Glucometerson 0 05-16-2024 Commemt1 Glu2: Cleaned Meter Normal [facility] Comment on above: Result Comment: PERF ORMED BY: [place] [address] PATHOLOGIST CIGARETTE FILTER INSPECTOR SIMEON BIGGS M.D. Performed By: #### G BARAK #### Point of Care testing , Glucose [Mass/volume] in Ser um or PlasmaOrdered By: Melvin Ruano on 05-16-2024 Glucose [Mass/Vol] 107 mg/dL High 70-100 [facility] Comment on above: ADA recommended refe rence rangeRandom Glucose Reference Range is dependent on time and content of last meal. Glucose of more than 200 mg/dL in a nonstressed, ambulatory subject supports the diagnosis of Diabetes Mellitus. Result Comment: Silver om Glucose Reference Range is dependent on time and content of last meal. Glucose of more than 200 mg/dL in a nonstressed, ambulatory subject supports the diagnosis of Diabetes Mellitus. ADA recommended reference range Performed By: #### B MP #### [address] [place] [address] [facility] HCG ( test) IA.rapi d Ql (U)Ordered By: Melvin Ruano on 05-16-2024 HCG ( test) Ql (U) Negative [facility] HCG,Urineon 05-16-2024 Beta HCG ( test) Ql (U) Negative Normal [facility] Comment on above: Result Comment: PERF ORMED BY: [place] [id number] PATHOLOGIST CIGARETTE FILTER INSPECTOR SIMEON BIGGS M.D. Performed By: #### U HCG #### [facility] [address] [id number] [facility] Jason 05-16-2024 L Specimen: [id number] Received: 05/16/24 Status: KESHA Romo Num: [id number] Spec Type: Surgical Subm Dr: Pato Koehler DPM Tissues: A Bone Fragments - Other than Path Fracture (ACCESSORY BONE LT FOOT) Procedures: HE, Gross/Micro L3, Decalcification Age/ Patient Sex Location Account Attending Physician Kyung Paul 33/F [place] [id number] Pato Koehler DPM SPEC NUM: [id number] RECD: 05/16/24 STATUS: KESHA ROMO NUM: [id number] BRUNO: 05/16/24- SUBM DR: Pato Koehler DPM ENTERED: 05/16/24-8 [facility] DR: SPEC TYPE: Surgical DEPT: S ORDERED: [...] areas of necrosis or cysts are present. Language Path sections are submitted following decalcification in A1. CPT Codes 94877, 85208 Specimen: [id number] Received: 05/16/24 Status: KESHA Romo Num: [id number] Spec Type: Surgical Subm Dr: Pato Koehler DPM Tissues: A Bone Fragments - Other than Path Fracture (ACCESSORY BONE LT FOOT) Procedures: NICOLE, Gross/Micro L3, Decalcification Patient: Kyung Paul [id number] (Continued) Signed (signature on file) Tabatha Dupree MD 05/19/24 1640 Normal [facility] No Panel InformationOrdered By: Pato Koehler on 05-16-2024 Bedside Glucose Comment Glu2: cleaned meter [facility] No Panel InformationOrdered By: Melvin Ruano on 05-16-2024 Estimated GFR (CKD-EPI) > 60.0 mL/Min [facility] Creatinine Clearance (Chem 161.75 [facility] Potassium [Moles/volume] in Serum or PlasmaOrdered By: Melvin Ruano on 05-16-2024 Potassium [Moles/Vol] 3.8 mmol/L Normal 3.5-5.1 [facility] Comment on above: Performed By: #### B MP #### [address] Serum or plasma anion gap de terminationOrdered By: Melvin Ruano on 05-16-2024 Anion gap [Moles/Vol] 9.5 mmol/L Normal 6.0-15.0 [facility] Comment on above: Performed By: #### B MP #### [place] [address] [place] Sodium [Moles/volume] in Ser um or PlasmaOrdered By: Melvin Ruano on 05-16-2024 Sodium [Moles/Vol] 138 mmol/L Normal 136-145 [facility] Comment on above: Performed By: #### B MP #### [place] [address] [place] Urea nitrogen [Mass/volume] in Serum or PlasmaOrdered By: Melvin Ruano on 05-16-2024 Urea nitrogen [Mass/Vol] 17 mg/dL Normal 7-25 [facility] Comment on above: Performed By: #### B MP #### [place] [address] [place] XR foot LT 2Von 05-16-2024 XR foot LT 2V [facility] Main [place] [address] [place] [address] XRay Report Signed Patient: Kyung Paul MR#: [id number] : 1990 Acct:[id number] Age/Sex: 33 / F ADM Date: 05/16/24 Loc: [place] Room: Type: [facility] Attending [...] Leisa Adames M.D.05/16/2024 3:20 PM Dictation Location: [place] [address] Transcribed By: [facility] 05/16/24 1520 Dictated By: Leisa Adames MD 05/16/24 1515 Signed By: 05/16/24 1520 Normal [facility] CBC w/ Auto Diffon 4 Basophils/100 WBC (Bld) 0.5 % Normal 0.0-2.0 [facility] Comment on above: Performed By: #### 2 [id number] #### [facility] [address] [place] [address] Basophils/Leukocytes Auto (Bld) [Pure # fraction] 0.1 E9/L Normal 0.0-0.2 [facility] Comment on above: Performed By: #### 2 [id number] #### [facility] [address] [place] [address] Eosinophils (Bld) [#/Vol] 0.3 E9/L Normal 0.0-0.5 [facility] Comment on above: Performed By: #### 2 [id number] #### [facility] [address] [place] [address] Eosinophils/100 WBC (Bld) 2.9 % Normal 0.0-8.0 [facility] Comment on above: Performed By: #### 2 [id number] #### [facility] [address] [place] [address] Erythrocyte distribution width (RBC) [Ratio] 15.6 % High 10.9-14.2 [facility] Comment on above: Performed By: #### 2 [id number] #### [facility] [address] [place] [address] Hematocrit (Bld) [Volume fraction] 39.9 % Normal 34.0-46.0 [facility] Comment on above: Performed By: #### 2 [id number] #### [facility] [address] [place] [address] Hemoglobin (Bld) [Mass/Vol] 12.8 g/dL Normal 12.0-16.0 [facility] Comment on above: Performed By: #### 2 [id number] #### [facility] [address] [place] [address] Lymphocytes (Bld) [#/Vol] 2.3 E9/L Normal 1.0-4.0 [facility] Comment on above: Performed By: #### 2 [id number] #### [facility] [address] [place] [address] Lymphocytes/100 WBC (Bld) 20.9 % Normal 14.0-50.0 [facility] Comment on above: Performed By: #### 2 [id number] #### [facility] [address] [place] [address] MCH (RBC) [Entitic mass] 25.4 pg Low 27.0-34.0 [facility] Comment on above: Performed By: #### 2 [id number] #### [facility] [address] [place] [address] MCHC (RBC) [Mass/Vol] 32.2 g/dL Normal 31.4-36.0 [facility] Comment on above: Performed By: #### 2 [id number] #### [facility] [address] [place] [address] MCV (RBC) [Entitic vol] 79.0 fL Low 80.0-100.0 [facility] Comment on above: Performed By: #### 2 [id number] #### [facility] [address] [place] [address] Monocytes (Bld) [#/Vol] 0.7 E9/L Normal 0.2-1.0 [facility] Comment on above: Performed By: #### 2 [id number] #### [facility] [address] [place] [address] Neutrophils (Bld) [#/Vol] 7.7 E9/L High 2.0-7.5 [facility] Comment on above: Performed By: #### 2 [id number] #### [facility] [address] [place] [address] Neutrophils/100 WBC (Bld) 69.3 % Normal 36.0-75.0 [facility] Comment on above: Performed By: #### 2 [id number] #### [facility] [address] [place] [address] Platelet mean volume (Bld) [Entitic vol] 8.3 fL Normal 6.4-10.8 [facility] Comment on above: Performed By: #### 2 [id number] #### [facility] [address] [place] [address] Platelets (Bld) [#/Vol] 346.0 E9/L Normal 150.0-500.0 [facility] Comment on above: Performed By: #### 2 [id number] #### [facility] [address] [place] [address] RBC (Bld) [#/Vol] 5.1 E12/L Normal 4.3-5.9 [facility] Comment on above: Performed By: #### 2 [id number] #### [facility] [address] [place] [address] WBC corrected for nucl RBC Auto (Bld) [#/Vol] 11.1 E9/L High 4.0-11.0 [facility] Comment on above: Performed By: #### 2 [id number] #### [facility] [address] [place] [address] Consent for Treatmenton 03-29 Consent for Treatment [id number] #1.00TIFF Normal [facility] HEMATOLOGYOrdered By: SYSTEM SYSTEM on 04-25-2024 Basophils/100 [...] Remisol Heme Physician Orderon 04-18-2024 Physician Order [id number] #1.00TIFF Normal [facility] XR shoulder RT min 2V*on XR shoulder RT min 2V* [facility] [place] [address] XRay Report Signed Patient: Kyung Paul MR#: [id number] : 1990 Acct:[id number] Age/Sex: 33 / F ADM Date: 02/27/24 Loc: [facility]CLY Room: Type: [facility] Attending Dr: Monique SANDOVAL Copies to: LORI [...] Leisa Adames M.D.02/27/2024 6:14 PM Dictation Location: [place] [address] Transcribed By: [facility] 02/27/241813 Dictated By: Leisa Adames MD 02/27/241812 Signed By: 02/27/241813 Normal [facility] GLYCOHEMOGLOBIN A1Con 2022 ADA RECOMMENDATION SEE BELOW Normal [facility] Comment on above: Result Comment: ADA RECOMMENDED LIMIT 4.0 - 6.0 ADA THERAPEUTIC TARGET < 7.0 ACTION SUGGESTED > 7.0 Performed By: #### A 1C #### [facility] [address] [place] [address] Dr. Benito Dupree Glucose [Mass/Vol] 105 mg/dL Normal [facility] Comment on above: Performed By: #### A 1C #### [facility] [address] [place] [address] [address] Benito Dupree HbA1c (Bld) [Mass fraction] 5.3 % Normal 4.5-6.2 [facility] Comment on above: Performed By: #### A 1C #### [facility] [address] [place] [address] Dr. Benito Dupree [facility]on SARS-CoV-2 (COVID-19) RNA MUKUND+probe Ql (Unsp spec) Not detected Normal NOT DETECTED [facility] Comment on above: Result Comment: This test is not yet approved or cleared by the [place] FDA. When there are no FDA-approved or cleared tests available, and other criteria are met, FDA can make tests available under an emergency access mechanism called an Emergency Use Authorization (EUA). The EUA for this test is supported by the [place] of Health and Human Service's (HHS's) declaration [...] SARS-CoV-2. Performed By: #### C VDTBH #### [facility] [address] [place] [address] Dr. Benito Dupree INFLUENZA A AND B AGon 01-05 INFLUANEGH SEE BELOW Normal [facility] Comment on above: Result Comment: Nega tive for Flu A protein angiten. Infection due to Flu A cannot be ruled out. Flu A angiten in the sample may be below the detection limit of the test. Performed By: #### I NFLUAB #### [facility] [address] [place] [address] Dr. Benito Dupree INFLUBNEGH SEE BELOW Normal [facility] Comment on above: Result Comment: Nega tive for Flu B protein antigen. Infection due to Flu B cannot be ruled out. Flu B antigen in the sample may be below the detection limit of the test. Performed By: #### I NFLUAB #### [facility] [address] [place] [address] Dr. Benito Dupree INFLUENZA A AG Negative Normal NEGATIVE SEE COMMENT [facility] Comment on above: Performed By: #### I NFLUAB #### [facility] [address] [place] [address] Dr. Benito Dupree INFLUENZA B AG Negative Normal NEGATIVE SEE COMMENT [facility] Comment on above: Performed By: #### I NFLUAB #### [facility] [address] [place] [address] Dr. Benito Dupree GLYCOHEMOGLOBIN A1Con 2021 ADA RECOMMENDATION SEE BELOW Normal [facility] Comment on above: Result Comment: ADA RECOMMENDED LIMIT 4.0 - 6.0 ADA THERAPEUTIC TARGET < 7.0 ACTION SUGGESTED > 7.0 Performed By: #### A 1C #### [facility] [address] [place], [place] [address] Dr. Benito Dupree Glucose [Mass/Vol] 143 mg/dL Normal [facility] Comment on above: Performed By: #### A 1C #### [facility] [address] [place] [address] [address] Benito Dupree HbA1c (Bld) [Mass fraction] 6.6 % Critically high 4.5-6.2 [facility] Comment on above: Performed By: #### A 1C #### [facility] [address] [place] [address] [address] Benito Dupree LIPID PROFILEon 11-15-2022 CHOL-HDL RATIO NORM SEE BELOW Normal [facility] Comment on above: Result Comment: 3.3 - 4.4 LOW RISK 4.4 - 7.1 AVERAGE RISK 7.1 - 11.0 MODERATE RISK >11.0 HIGH RISK Performed By: #### I NFLUAB #### [facility] [address] [place] [address] Dr. Benito Dupree Cholesterol [Mass/Vol] 154 mg/dL Normal <=200 [facility] Comment on above: Performed By: #### I NFLUAB #### [facility] [address] [place] [address] [address] Benito Dupree Cholesterol in HDL [Mass/Vol] 29 mg/dL Critically low 40-60 [facility] Comment on above: Performed By: #### I NFLUAB #### [facility] [address] [place] [address] [address] Benito Dupree Cholesterol in LDL [Mass/Vol] 98.2 mg/dL Normal [facility] Comment on above: Performed By: #### I NFLUAB #### [facility] [address] [place] [address] [address] Benito Dupree Cholesterol.total/Lisandra sterol in HDL [Mass ratio] 5.3 {ratio} Normal [facility] Comment on above: Performed By: #### I NFLUAB #### [facility] [address] [place] [address] Dr. Benito Dupree HDL NORMAL > or = 60 mg/dl - LOW CARDIOVASCULAR RISK <40 mg/dl - HIGH CARDIOVASCULAR RISK Normal [facility] Comment on above: Performed By: #### I NFLUAB #### [facility] [address] [place] [address] [address] Benito Dupree LDL CALC NORMAL SEE BELOW Normal [facility] [facility] Comment on [facility]: Result Comment: <100 mg/dl OPTIMAL 100 - 129 mg/dl NEAR OR ABOVE OPTIMAL 130 - 159 mg/dl BORDERLINE HIGH 160 - 189 mg/dl HIGH >190 mg/dl VERY HIGH Performed By: #### I NFLUAB #### [facility] [address] [place] [address] Dr. Benito Dupree Triglyceride [Mass/Vol] 134 mg/dL Normal <=150 [facility] Comment on above: Performed By: #### I NFLUAB #### [facility] [address] [place] [address] Dr. Benito Dupree VLDL CALC 26.8 mg/dL Normal [facility] Comment on above: Performed By: #### I NFLUAB #### [facility] [address] [address] [address] Benito Dupree INSULINon 08-19-2022 Insulin 24.3 uIU/mL Normal 2.6-24.9 [facility] Comment on above: Performed By: #### I NFLUAB #### [facility] [address] [place] [address] Dr. Benito Dupree T4, T3U, FTI LABCORPon 08-19 Free Thyroxine Index 2.6 Normal 1.2-4.9 [facility] Comment on above: Performed By: #### T HYLC #### [facility] [address] [place] [address] Dr. Benito Dupree T3 Uptake 29 % Normal 24-39 [facility] Comment on above: Performed By: #### T HYLC #### [facility] [address] [place] [address] Dr. Benito Dupree T4 [Mass/Vol] 8.8 ug/dL Normal 4.5-12.0 [facility] Comment on above: Performed By: #### T HYLC #### [facility] [address] [place] [address] Dr. Benito Dupree CBC AUTO DIFFon 08-18-2022 BASO # 0.1 103/ul Normal 0.0-0.1 [facility] Comment on above: Performed By: #### I NFLUAB #### [facility] [address] [place] [address] Dr. Benito Dupree Basophils/100 WBC (Bld) 0.8 % Normal 0.2-2.0 [facility] Comment on above: Performed By: #### I NFLUAB #### [facility] [address] [place] [address] Dr. Benito Dupree EO # 0.3 103/ul Normal 0.0-0.7 [facility] Comment on above: Performed By: #### I NFLUAB #### [facility] [address] [place] [address] Dr. Benito Dupree Eosinophils/100 WBC (Bld) 2.8 % Normal 0.9-7.0 [facility] Comment on above: Performed By: #### I NFLUAB #### [facility] [address] [place] [address] Dr. Benito Dupree Erythrocyte distribution width (RBC) [Ratio] 15.4 % Critically high 11.0-15.0 [facility] Comment on above: Performed By: #### I NFLUAB #### [facility] [address] [place] [address] Dr. Benito Dupree Hematocrit (Bld) [Volume fraction] 43.7 % Normal 36.0-48.0 [facility] Comment on above: Performed By: #### I NFLUAB #### [facility] [address] [place] [address] Dr. Benito Dupree Hemoglobin (Bld) [Mass/Vol] 14.2 g/dL Normal 12.0-16.0 [facility] Comment on above: Performed By: #### I NFLUAB #### [facility] [address] [place] [address] Dr. Benito Dupree IG # 0.08 10e3/ul Critically high 0.00-0.03 [facility] Comment on above: Performed By: #### I NFLUAB #### [facility] [address] [address] [address] Benito Dupree IG % 0.9 % Critically high 0.0-0.5 [facility] Comment on above: Performed By: #### I NFLUAB #### [facility] [address] [address] [address] Bneito Dupree LYMPH # 2.3 103/ul Normal 1.2-3.8 [facility] Comment on above: Performed By: #### I NFLUAB #### [facility] [address] [address] [address] Benito Dupree Lymphocytes/100 WBC (Bld) 24.3 % Normal 20.5-60.0 [facility] Comment on above: Performed By: #### I NFLUAB #### [facility] [address] [address] [address] Benito Dupree MANUAL DIFF REQ NO Normal [facility] Comment on above: Performed By: #### I NFLUAB #### [facility] [address] [address] [address] Benito Dupree MCH (RBC) [Entitic mass] 26.1 pg Critically low 26.7-34.0 [facility] Comment on above: Performed By: #### I NFLUAB #### [facility] [address] [address] [address] Benito Dupree MCHC (RBC) [Mass/Vol] 32.5 g/dL Normal 29.9-35.2 [facility] Comment on above: Performed By: #### I NFLUAB #### [facility] [address] [address] [address] Benito Dupree MCV (RBC) [Entitic vol] 80.2 fL Critically low 81.0-99. 0 [facility] Comment on above: Performed By: #### I NFLUAB #### [facility] [address] [address] [address] Benito Dupree MONO # 0.5 103/ul Normal 0.3-0.8 [facility] Comment on above: Performed By: #### I NFLUAB #### [facility] [address] [place] [address] Dr. Benito Dupree Monocytes/100 WBC (Bld) 5.2 % Normal 1.7-12.0 [facility] Comment on above: Performed By: #### I NFLUAB #### [facility] [address] [place] [address] Dr. Benito Dupree NEUT # 6.1 103/ul Normal 1.4-6.5 [facility] Comment on above: Performed By: #### I NFLUAB #### [facility] [address] [place] [address] Dr. Benito Dupree Neutrophils/100 WBC (Bld) 66.0 % Normal 43.0-75.0 [facility] Comment on above: Performed By: #### I NFLUAB #### [facility] [address] [place] [address] Dr. Benito Dupree Platelet mean volume (Bld) [Entitic vol] 9.9 fL Normal 9.5-13.5 [facility] Comment on above: Performed By: #### I NFLUAB #### [facility] [address] [place] [address] Dr. Benito Dupree PLT 291 103/ul Normal 150-450 [facility] Comment on above: Performed By: #### I NFLUAB #### [facility] [address] [place] [address] Dr. Benito Dupree RBC 5.45 106/ul Critically high 4.20-5.40 [facility] Comment on above: Performed By: #### I NFLUAB #### [facility] [address] [place] [address] Dr. Benito Dupree WBC 9.3 103/ul Normal 4.0-11.0 [facility] Comment on above: Performed By: #### I NFLUAB #### [facility] [address] [place] [address] Dr. Benito Dupree DIRECT LDLon 08-18-2022 Cholesterol in LDL [Mass/Vol] 50 mg/dL Normal [facility] Comment on above: Performed By: #### T HYLC #### [facility] [address] [address] [address] Benito Dupree DLDL NORMAL SEE BELOW Normal [facility] Comment on above: Result Comment: <100 mg/dl OPTIMAL 100 - 129 mg/dl NEAR OR ABOVE OPTIMAL 130 - 159 mg/dl BORDERLINE HIGH 160 - 189 mg/dl HIGH >190 mg/dl VERY HIGH Performed By: #### T HYLC #### [facility] [address] [address] [address] Benito Dupree GLYCOHEMOGLOBIN A1Con 2021 ADA RECOMMENDATION SEE BELOW Normal [facility] Comment on above: Result Comment: ADA RECOMMENDED LIMIT 4.0 - 6.0 ADA THERAPEUTIC TARGET < 7.0 ACTION SUGGESTED > 7.0 Performed By: #### A 1C #### [facility] [address] [address] [address] Benito Dupree Glucose [Mass/Vol] 332 mg/dL Normal [facility] Comment on above: Performed By: #### A 1C #### [facility] [address] [address] [address] Benito Dupree HbA1c (Bld) [Mass fraction] 13.2 % Critically high 4.5-6.2 [facility] Comment on above: Performed By: #### A 1C #### [facility] [address] [address] [address] Benito Dupree IRONon 08-18-2022 Iron [Mass/Vol] 53.0 ug/dL Normal 50.0-170.0 [facility] Comment on above: Performed By: #### I NFLUAB #### [facility] [address] [address] [address] Benito Dupree LIPID PROFILEon 08-18-2022 CHOL-HDL RATIO NORM SEE BELOW Normal [facility] Comment on above: Result Comment: 3.3 - 4.4 LOW RISK 4.4 - 7.1 AVERAGE RISK 7.1 - 11.0 MODERATE RISK >11.0 HIGH RISK Performed By: #### T HYLC #### [facility] [address] [address] [address] Benito Dupree Cholesterol [Mass/Vol] 260 mg/dL Critically high <=200 [facility] Comment on above: Performed By: #### T HYLC #### [facility] [address] [address] [address] Benito Dupree Cholesterol in HDL [Mass/Vol] 23 mg/dL Critically low 40-60 [facility] Comment on above: Performed By: #### T HYLC #### [facility] [address] [address] [address] Benito Dupree Cholesterol.total/Lisandra sterol in HDL [Mass ratio] 11.3 {ratio} Normal [facility] Comment on above: Performed By: #### T HYLC #### [facility] [address] [address] [address] Benito Dupree HDL NORMAL > or = 60 mg/dl - LOW CARDIOVASCULAR RISK <40 mg/dl - HIGH CARDIOVASCULAR RISK Normal [facility] Comment on above: Performed By: #### T HYLC #### [facility] [address] [address] [address] Benito Dupree Triglyceride [Mass/Vol] 1711 mg/dL Critically high <=150 [facility] Comment on above: Performed By: #### T HYLC #### [facility] [address] [address] [address] Benito Dupree VLDL CALC 342.2 mg/dL Normal [facility] Comment on above: Performed By: #### T HYLC #### [facility] [address] [address] [address] Benito Dupree PROF 14(COMP METB)on 022 Albumin [Mass/Vol] 3.2 g/dL Critically low 3.4-5.0 [facility] Comment on above: Performed By: #### T HYLC #### [facility] [address] [address] [address] Benito Dupree Albumin/Globulin [Mass ratio] 0.7 {ratio} Normal [facility] Comment on above: Performed By: #### T HYLC #### [facility] [address] [address] [address] Benito Dupree ALP [Catalytic activity/Vol] 92 U/L Normal 46-116 [facility] Comment on above: Performed By: #### T HYLC #### [facility] [address] [place] [address] Dr. Benito Dupree ALT [Catalytic activity/Vol] 41 U/L Normal 14-59 [facility] Comment on above: Performed By: #### T HYLC #### [facility] [address] [place] [address] Dr. Benito Dupree Anion gap [Moles/Vol] 14.1 mmol/L Normal [facility] Comment on above: Performed By: #### T HYLC #### [facility] [address] [place] [address] Dr. Benito Dupree AST [Catalytic activity/Vol] 16 U/L Normal 15-37 [facility] Comment on above: Performed By: #### T HYLC #### [facility] [address] [place] [address] Dr. Benito Dupree Bilirubin [Mass/Vol] 0.9 mg/dL Normal 0.2-1.0 [facility] Comment on above: Performed By: #### T HYLC #### [facility] [address] [place] [address] Dr. Benito Dupree Calcium [Mass/Vol] 9.1 mg/dL Normal 8.5-10.1 [facility] Comment on above: Performed By: #### T HYLC #### [facility] [address] [place] [address] Dr. Benito Dupree Chloride [Moles/Vol] 97 mmol/L Critically low 98-107 [facility] Comment on above: Performed By: #### T HYLC #### [facility] [address] [place] [address] Dr. Benito Dupree CO2 [Moles/Vol] 24.9 mmol/L Normal 21.0-32.0 [facility] Comment on above: Performed By: #### T HYLC #### [facility] [address] [place] [address] Dr. Benito Dupree Creatinine [Mass/Vol] 0.67 mg/dL Normal 0.55-1.02 [facility] Comment on above: Performed By: #### T HYLC #### [facility] [address] [address] [address] Benito Dupree EGFR-AF KU[place]I >60 Normal >=60 [facility] Comment on above: Performed By: #### T HYLC #### [facility] [address] [address] [address] Benito Dupree EGFR-NON AF [place]I >60 Normal >=60 [facility] Comment on above: Performed By: #### T HYLC #### [facility] [address] [address] [address] Benito Dupree Globulin (S) [Mass/Vol] 4.6 g/dL Normal [facility] Comment on above: Performed By: #### T HYLC #### [facility] [address] [address] [address] Benito Dupree Glucose [Mass/Vol] 402 mg/dL Critically high 74-106 [facility] Comment on above: Performed By: #### T HYLC #### [facility] [address] [address] [address] Benito Dupree Potassium [Moles/Vol] 4.0 mmol/L Normal 3.5-5.1 [facility] Comment on above: Performed By: #### T HYLC #### [facility] [address] [address] [address] Benito Dupree Protein [Mass/Vol] 7.8 g/dL Normal 6.4-8.2 [facility] Comment on above: Performed By: #### T HYLC #### [facility] [address] [address] [address] Benito Dupree Sodium [Moles/Vol] 132 mmol/L Critically low 136-145 [facility] Comment on above: Performed By: #### T HYLC #### [facility] [address] [address] [address] Benito Dupree Urea nitrogen [Mass/Vol] 10.0 mg/dL Normal 7.0-18.0 [facility] Comment on above: Performed By: #### T HYLC #### [facility] [address] [place] [address] Dr. Benito Dupree Urea nitrogen/Creatinine [Mass ratio] 14.9 mg/mg Normal [facility] Comment on above: Performed By: #### T HYLC #### [facility] [address] [place] [address] Dr. Benito Dupree TSHon 08-18-2022 TSH 3.676 uIU/mL Normal 0.358-3.740 [facility] Comment on above: Performed By: #### T HYLC #### [facility] [address] [place] [address] Dr. Benito Dupree VITAMIN D 25 OHon 08-18-2022 VIT D 25-OH 13.9 ng/mL Normal [facility] Comment on above: Performed By: #### I NFLUAB #### [facility] [address] [place] [address] Dr. Benito Dupree VIT D RANGES SEE BELOW Normal [facility] Comment on above: Result Comment: <20 ng/mL Vit D deficient 20 - <30 ng/mL Vit D insufficient 30 - 100 ng/mL Vit D sufficient >100 ng/mL Potential Toxicity Performed By: #### I NFLUAB #### [facility] [address] [place] [address] Dr. Benito Dupree AMYLASEon 06-01-2022 Amylase [Catalytic activity/Vol] 29 U/L Normal 25-115 [facility] Comment on above: Performed By: #### I NFLUAB #### [facility] [address] [place] [address] Dr. Benito Dupree CBC AUTO DIFFon 06-01-2022 BASO # 0.1 103/ul Normal 0.0-0.1 [facility] Comment on above: Performed By: #### I NFLUAB #### [facility] [address] [place] [address] Dr. Benito Dupree Basophils/100 WBC (Bld) 0.5 % Normal 0.2-2.0 [facility] Comment on above: Performed By: #### I NFLUAB #### [facility] [address] [place] [address] Dr. Benito Dupree EO # 0.3 103/ul Normal 0.0-0.7 [facility] Comment on above: Performed By: #### I NFLUAB #### [facility] [address] [place] [address] Dr. Benito Dupree Eosinophils/100 WBC (Bld) 2.0 % Normal 0.9-7.0 [facility] Comment on above: Performed By: #### I NFLUAB #### [facility] [address] [place] [address] Dr. Benito Dupree Erythrocyte distribution width (RBC) [Ratio] 15.3 % Critically high 11.0-15.0 [facility] Comment on above: Performed By: #### I NFLUAB #### [facility] [address] [place] [address] Dr. Benito Dupree Hematocrit (Bld) [Volume fraction] 41.5 % Normal 36.0-48.0 [facility] Comment on above: Performed By: #### I NFLUAB #### [facility] [address] [place] [address] Dr. Benito Dupree Hemoglobin (Bld) [Mass/Vol] 12.7 g/dL Normal 12.0-16.0 [facility] Comment on above: Performed By: #### I NFLUAB #### [facility] [address] [place] [address] Dr. Benito Dupree IG # 0.06 10e3/ul Critically high 0.00-0.03 [facility] Comment on above: Performed By: #### I NFLUAB #### [facility] [address] [place] [address] Dr. Benito Dupree IG % 0.4 % Normal 0.0-0.5 [facility] Comment on above: Performed By: #### I NFLUAB #### [facility] [address] [place] [address] Dr. Benito Dupree LYMPH # 1.9 103/ul Normal 1.2-3.8 [facility] Comment on above: Performed By: #### I NFLUAB #### [facility] [address] [place] [address] Dr. Benito Dupree Lymphocytes/100 WBC (Bld) 13.9 % Critically low 20.5-60.0 [facility] Comment on above: Performed By: #### I NFLUAB #### [facility] [address] [place] [address] Dr. Benito Dupree MANUAL DIFF REQ NO Normal [facility] Comment on above: Performed By: #### I NFLUAB #### [facility] [address] [place] [address] Dr. Benito Dupree MCH (RBC) [Entitic mass] 24.7 pg Critically low 26.7-34.0 [facility] Comment on above: Performed By: #### I NFLUAB #### [facility] [address] [place] [address] Dr. Benito Dupree MCHC (RBC) [Mass/Vol] 30.6 g/dL Normal 29.9-35.2 [facility] Comment on above: Performed By: #### I NFLUAB #### [facility] [address] [place] [address] Dr. Benito Dupree MCV (RBC) [Entitic vol] 80.6 fL Critically low 81.0-99. 0 [facility] Comment on above: Performed By: #### I NFLUAB #### [facility] [address] [place] [address] Dr. Benito Dupree MONO # 0.5 103/ul Normal 0.3-0.8 [facility] Comment on above: Performed By: #### I NFLUAB #### [facility] [address] [place] [address] Dr. Benito Dupree Monocytes/100 WBC (Bld) 4.0 % Normal 1.7-12.0 [facility] Comment on above: Performed By: #### I NFLUAB #### [facility] [address] [place], [place] [id number] Dr. Benito Dupree NEUT # 10.6 103/ul Critically high 1.4-6.5 [facility] Comment on above: Performed By: #### I NFLUAB #### [facility] [address] [place] [address] Dr. Benito Dupree Neutrophils/100 WBC (Bld) 79.2 % Critically high 43.0-75.0 [facility] Comment on above: Performed By: #### I NFLUAB #### [facility] [address] [place] [address] Dr. Benito Dupree Platelet mean volume (Bld) [Entitic vol] 9.3 fL Critically low 9.5-13.5 [facility] Comment on above: Performed By: #### I NFLUAB #### [facility] [address] [place] [address] Dr. Benito Dupree PLT 391 103/ul Normal 150-450 [facility] Comment on above: Performed By: #### I NFLUAB #### [facility] [address] [place] [address] Dr. Benito Dupree RBC 5.15 106/ul Normal 4.20-5.40 [facility] Comment on above: Performed By: #### I NFLUAB #### [facility] [address] [place] [address] Dr. Benito Dupree WBC 13.4 103/ul Critically high 4.0-11.0 [facility] Comment on above: Performed By: #### I NFLUAB #### [facility] [address] [place] [address] ABD/PELV W CONon [...] WESTLEY JHA Date: 2022-06-01 14:59 Normal [facility] ER URINE PROFILEon 2 Bilirubin Ql (U) Negative Normal NEGATIVE [facility] Comment on above: Performed By: #### U MICRO, ERUR #### [facility] [address] [place] [address] Dr. Benito Dupree Clarity (U) SL CLOUDY Abnormal CLEAR [facility] Comment on above: Performed By: #### U MICRO, ERUR #### [facility] [address] [address] [address] Benito Dupree Color (U) YELLOW Normal YELLOW [facility] Comment on above: Performed By: #### U MICRO, ERUR #### [facility] [address] [address] [address] Benito Dupree ERUAHD A micrscopic examination will be performed if indicated. Normal [facility] Comment on above: Performed By: #### U MICRO, ERUR #### [facility] [address] [address] [address] Benito Dupree Glucose Ql (U) Negative Normal NEGATIVE [facility] Comment on above: Performed By: #### U MICRO, ERUR #### [facility] [address] [address] [address] Benito Dupree Hemoglobin Ql (U) LARGE Abnormal NEGATIVE [facility] Comment on above: Performed By: #### U MICRO, ERUR #### [facility] [address] [place] [address] Dr. Benito Dupree Ketones Ql (U) Negative Normal NEGATIVE [facility] Comment on above: Performed By: #### U MICRO, ERUR #### [facility] [address] [address] [address] Benito Dupree LEUKOCYTES Negative Normal NEGATIVE [facility] Comment on above: Performed By: #### U MICRO, ERUR #### [facility] [address] [address] [address] Benito Dupree Nitrite Ql (U) Negative Normal NEGATIVE [facility] Comment on above: Performed By: #### U MICRO, ERUR #### [facility] [address] [place] [address] Dr. Benito Dupree pH (U) 5.5 [pH] Normal 5-9 [facility] Comment on above: Performed By: #### U MICRO, ERUR #### [facility] [address] [place] [address] Dr. Benito Dupree SPEC GRAVITY 1.010 Normal 1.005-<=1.02 5 [facility] Comment on above: Performed By: #### U MICRO, ERUR #### [facility] [address] [place] [address] Dr. Benito Dupree UA PROTEIN TRACE Normal NEGATIVE/ TRACE [facility] Comment on above: Performed By: #### U MICRO, ERUR #### [facility] [address] [place] [address] Dr. Benito Dupree UR MICRO IND INDICATED Normal [facility] Comment on above: Performed By: #### U MICRO, ERUR #### [facility] [address] [place] [address] Dr. Benito Dupree Urobilinogen Qn (U) 1.0 {Tuyet'U}/dL Normal 0.2 - 1. 0 [facility] Comment on above: Performed By: #### U MICRO, ERUR #### [facility] [address] [place] [address] Dr. Benito Dupree LACTATE/LACTIC ACIDon 2021 Lactate [Moles/Vol] 1.1 mmol/L Normal 0.4-1.9 [facility] Comment on above: Performed By: #### L ACT #### [facility] [address] [place] [address] Dr. Benito Dupree LIPASEon 06-01-2022 Lipase [Catalytic activity/Vol] 111.0 U/L Normal 73.0-393.0 [facility] Comment on above: Performed By: #### I NFLUAB #### [facility] [address] [address] [address] Benito Dupree PREG HCG QUALon 06-01-2022 , QUAL Negative Normal NEGATIVE [facility] Comment on above: Performed By: #### P REG #### [facility] [address] [place] [address] Dr. Benito Dupree PROF 14(COMP METB)on 022 Albumin [Mass/Vol] 3.6 g/dL Normal 3.4-5.0 [facility] Comment on above: Performed By: #### I NFLUAB #### [facility] [address] [place] [address] Dr. Benito Dupree Albumin/Globulin [Mass ratio] 0.7 {ratio} Normal [facility] Comment on above: Performed By: #### I NFLUAB #### [facility] [address] [place] [address] Dr. Benito Dupree ALP [Catalytic activity/Vol] 90 U/L Normal 46-116 [facility] Comment on above: Performed By: #### I NFLUAB #### [facility] [address] [place] [address] Dr. Benito Dupree ALT [Catalytic activity/Vol] 39 U/L Normal 14-59 [facility] Comment on above: Performed By: #### I NFLUAB #### [facility] [address] [place] [address] Dr. Benito Dupree Anion gap [Moles/Vol] 13.0 mmol/L Normal [facility] Comment on above: Performed By: #### I NFLUAB #### [facility] [address] [address] [address] Benito Dupree AST [Catalytic activity/Vol] 25 U/L Normal 15-37 [facility] Comment on above: Performed By: #### I NFLUAB #### [facility] [address] [place] [address] Dr. Benito Dupree Bilirubin [Mass/Vol] 1.1 mg/dL Critically high 0.2-1.0 [facility] Comment on above: Performed By: #### I NFLUAB #### [facility] [address] [place] [address] Dr. Benito Dupree Calcium [Mass/Vol] 9.4 mg/dL Normal 8.5-10.1 [facility] Comment on above: Performed By: #### I NFLUAB #### [facility] [address] [place] [address] Dr. Bentio Dupree Chloride [Moles/Vol] 99 mmol/L Normal 98-107 [facility] Comment on above: Performed By: #### I NFLUAB #### [facility] [address] [place] [address] Dr. Benito Dupree CO2 [Moles/Vol] 27.3 mmol/L Normal 21.0-32.0 [facility] Comment on above: Performed By: #### I NFLUAB #### [facility] [address] [place] [address] Dr. Benito Dupree Creatinine [Mass/Vol] 0.87 mg/dL Normal 0.55-1.02 [facility] Comment on above: Performed By: #### I NFLUAB #### [facility] [address] [place] [address] Dr. Benito Dupree EGFR-AF KUWAITI >60 Normal >=60 [facility] Comment on above: Performed By: #### I NFLUAB #### [facility] [address] [place] [address] Dr. Benito Dupree EGFR-NON AF [place]I >60 Normal >=60 [facility] Comment on above: Performed By: #### I NFLUAB #### [facility] [address] [address] [address] Benito Dupree Globulin (S) [Mass/Vol] 4.8 g/dL Normal [facility] Comment on above: Performed By: #### I NFLUAB #### [facility] [address] [address] [address] Benito Dupree Glucose [Mass/Vol] 218 mg/dL Critically high 74-106 [facility] Comment on above: Performed By: #### I NFLUAB #### [facility] [address] [address] [address] Benito Dupree Potassium [Moles/Vol] 4.1 mmol/L Normal 3.5-5.1 [facility] Comment on above: Performed By: #### I NFLUAB #### [facility] [address] [place] [address] Dr. Benito Dupree Protein [Mass/Vol] 8.4 g/dL Critically high 6.4-8.2 [facility] Comment on above: Performed By: #### I NFLUAB #### [facility] [address] [address] [address] Benito Dupree Sodium [Moles/Vol] 135 mmol/L Critically low 136-145 [facility] Comment on above: Performed By: #### I NFLUAB #### [facility] [address] [place] [address] Dr. Benito Dupree Urea nitrogen [Mass/Vol] 15.0 mg/dL Normal 7.0-18.0 [facility] Comment on above: Performed By: #### I NFLUAB #### [facility] [address] [address] [address] Benito Dupree Urea nitrogen/Creatinine [Mass ratio] 17.2 mg/mg Normal [facility] Comment on above: Performed By: #### I NFLUAB #### [facility] [address] [place] [address] Dr. Benito Dupree URINE MICROSCOPIC ONLYon BACTERIA TRACE Abnormal NONE SEEN [facility] Comment on above: Performed By: #### U MICRO, ERUR #### [facility] [address] [address] [address] Benito Dupree Bacteria identified Cx Nom (U) NOT INDICATED Normal [facility] Comment on above: Performed By: #### U MICRO, ERUR #### [facility] [address] [place] [address] Dr. Benito Dupree CAST NONE SEEN Normal NONE SEEN [facility] Comment on above: Performed By: #### U MICRO, ERUR #### [facility] [address] [address] [address] Benito Dupree Crystals LM Nom (Urine sed) NONE SEEN Normal NONE SEEN [facility] Comment on above: Performed By: #### U MICRO, ERUR #### [facility] [address] [place] [address] Dr. Benito Dupree Epithelial cells LM Ql (Urine sed) MODERATE Abnormal NONE SEEN /RARE [facility] Comment on above: Performed By: #### U MICRO, ERUR #### [facility] [address] [place] [address] Dr. Benito Dupree MUCOUS TRACE Abnormal NONE SEEN [facility] Comment on above: Performed By: #### U MICRO, ERUR #### [facility] [address] [place] [address] Dr. Benito Dupree RBC 2-5 Abnormal 0-2 [facility] Comment on above: Performed By: #### U MICRO, ERUR #### [facility] [address] [place] [address] Dr. Benito Dupree WBC 0-2 Abnormal NONE SEEN [facility] Comment on above: Performed By: #### U MICRO, ERUR #### [facility] [address] [place] [address] Dr. Benito Dupree XR hand RT min 3V*on 022 XR hand RT min 3V* [facility] [employer] Other XR hand RT min 3V* [facility] [employer] Other XR hand RT min 3V* [address] [facility] [employer] Other XR hand RT min 3V* YOMAIRA Yadav [address] [employer] Other XR hand RT min 3V* XRay Report [employer] Other XR hand RT min 3V* Signed [employer] Other XR hand RT min 3V* Patient: Kyung Paul MR#: [id number] [employer] Other XR hand RT min 3V* : 1990 Acct:[id number] [employer] Other XR hand RT min 3V* Age/Sex: 31 / F ADM Date: 03/22/22 [employer] Other XR hand RT min 3V* Loc: XDUCLY Room: Type: [facility] [employer] Other XR hand RT min 3V* Attending Dr: Monique SANDOVAL [employer] Other XR hand RT min 3V* Ordering Provider: LORI Dias [employer] Other XR hand RT min 3V* Date of Service: 03/22/22 [employer] Other XR hand RT min 3V* XR/XR hand RT min 3V*: Finger pain, right [employer] Other XR hand RT min 3V* Copies to: LORI Dias [employer] Other XR hand RT min 3V* 3 viewsRIGHT hand plain film [employer] Other XR hand RT min 3V* COMPARISON:None [email or web address] Other XR hand RT min 3V* HISTORY:Fell going upstairs. RIGHT ring finger injury. [employer] Other XR hand RT min 3V* No fracture, dislocation or focal soft tissue abnormality seen. [employer] Other XR hand RT min 3V* XR/XR hand RT min 3V* [employer] Other XR hand RT min 3V* IMPRESSION:No acute findings [employer] Other XR hand RT min 3V* Impression dictated by: Ta Galvan M.D.03/22/2022 4:42 PM [employer] Other XR hand RT min 3V* Dictation Location: [place] [address] [employer] Other XR hand RT min 3V* Transcribed By: [facility] 03/22/22 [facility] [employer] Other XR hand RT min 3V* Dictated By: Ta Galvan DO 03/22/22 [facility] [employer] Other XR hand RT min 3V* Signed By: [employer] Other XR hand RT min 3V* 03/22/[address] [place] [address] [employer] Other Vital Signs Date Time Vital Sign Value Performing Clinician Facility 10-24-2024 14:24-0500 Body height 157.5 cm Pato Koehler DPM Work Phone: [facility] 10-24-2024 14:24-0500 Body mass index (BMI) [Ratio] 56.7 kg/m2 Pato Koelher DPM Work Phone: [facility] 10-24-2024 14:24-0500 Body weight 140.62 kg Pato Koehler DPM Work Phone: [facility] 10-24-2024 14:24-0500 Respiratory rate 18 /min Pato Koehler DPM Work Phone: [facility] 10-04-2024 14:48-0500 Body height 157.5 cm Pato Koehler DPM Work Phone: [facility] 10-04-2024 14:48-0500 Body mass index (BMI) [Ratio] 56.7 kg/m2 Pato Koehler DPM Work Phone: [facility] 10-04-2024 14:48-0500 Body weight 140.62 kg Pato Koehler DPM Work Phone: [facility] 10-04-2024 14:48-0500 Diastolic blood pressure 79 mm[Hg] Pato Koehler DPM Work Phone: [facility] 10-04-2024 14:48-0500 Heart rate 82 /min Pato Koehler DPM Work Phone: [facility] 10-04-2024 14:48-0500 Systolic blood pressure 129 mm[Hg] Pato Koehler DPM Work Phone: [facility] 09-20-2024 14:37-0400 Body height 157.5 cm Pato Koehler DPM Work Phone: [facility] 09-20-2024 14:37-0400 Body mass index (BMI) [Ratio] 56.7 kg/m2 Pato Koehler DPM Work Phone: [facility] 09-20-2024 14:37-0400 Body weight 140.62 kg Pato Koehler DPM Work Phone: [facility] 09-20-2024 14:37-0400 Diastolic blood pressure 77 mm[Hg] Pato Koehler DPM Work Phone: [facility] 09-20-2024 14:37-0400 Heart rate 79 /min Pato Koehler DPM Work Phone: [facility] 09-20-2024 14:37-0400 Systolic blood pressure 126 mm[Hg] Pato Brown DPM Work Phone: [facility] 09-13-2024 14:46-0400 Body height 157.5 cm Pato Brown DPM Work Phone: [facility] 09-13-2024 14:46-0400 Body mass index (BMI) [Ratio] 56.7 kg/m2 Pato Brown DPM Work Phone: [facility] 09-13-2024 14:46-0400 Body weight 140.62 kg Pato Valentino DPM Work Phone: [facility] 09-13-2024 14:46-0400 Diastolic blood pressure 78 mm[Hg] Pato Koehler DPM Work Phone: [facility] 09-13-2024 14:46-0400 Heart rate 85 /min Pato Koehler DPM Work Phone: [facility] 09-13-2024 14:46-0400 Systolic blood pressure 123 mm[Hg] Pato Koehler DPM Work Phone: [facility] 08-30-2024 14:58-0400 Body height 157.5 cm Pato Koehler DPM Work Phone: [facility] 08-30-2024 14:58-0400 Body mass index (BMI) [Ratio] 56.7 kg/m2 Pato Valentino DPM Work Phone: [facility] 08-30-2024 14:58-0400 Body weight 140.62 kg Pato Valentino DPM Work Phone: [facility] 08-30-2024 14:58-0400 Diastolic blood pressure 80 mm[Hg] Pato Koehler DPM Work Phone: [facility] 08-30-2024 14:58-0400 Heart rate 75 /min Pato Koehler DPM Work Phone: [facility] 08-30-2024 14:58-0400 Respiratory rate 18 /min Pato Koehler DPM Work Phone: [facility] 08-30-2024 14:58-0400 Systolic blood pressure 128 mm[Hg] Pato Koehler DPM Work Phone: [facility] 08-02-2024 14:52-0400 Body height 157.5 cm Pato Koehler DPM Work Phone: [facility] 08-02-2024 14:52-0400 Body mass index (BMI) [Ratio] 56.7 kg/m2 Pato Koehler DPM Work Phone: [facility] 08-02-2024 14:52-0400 Body weight 140.62 kg Pato Koehler DPM Work Phone: [facility] 08-02-2024 14:52-0400 Diastolic blood pressure 79 mm[Hg] Pato Koehler DPM Work Phone: [facility] 08-02-2024 14:52-0400 Heart rate 82 /min Pato Koehler DPM Work Phone: [facility] 08-02-2024 14:52-0400 Systolic blood pressure 127 mm[Hg] Pato Koehler DPM Work Phone: [facility] 07-24-2024 14:58-0400 Body height 157.5 cm Jaime Biedenbach DO Work Phone: [facility] 07-24-2024 14:58-0400 Body mass index (BMI) [Ratio] 56.7 kg/m2 Jaime Biedenbach DO Work Phone: [facility] 07-24-2024 14:58-0400 Body weight 140.62 kg Jaime Biedenbach DO Work Phone: [facility] 05-16-2024 15:25-0400 Diastolic blood pressure 70 mm[Hg] [employer] Monique Lien Work Phone: [facility] 05-16-2024 15:25-0400 Heart rate 80 /min [employer] Monique Lien Work Phone: [facility] 05-16-2024 15:25-0400 Respiratory rate 22 /min [employer] Monique Lien Work Phone: [facility] 05-16-2024 15:25-0400 SaO2% (BldA) [Mass fraction] 94 % [employer] Monique Emmanuel Work Phone: [facility] 05-16-2024 15:25-0400 Systolic blood pressure 124 mm[Hg] [employer] Monique Emmanuel Work Phone: [facility] 05-16-2024 12:57-0400 Body temperature 98.6 [degF] [employer] Monique Emmanuel Work Phone: [facility] 05-16-2024 12:57-0400 Inhaled oxygen flow rate 6 L/min [employer] Monique Emmanuel Work Phone: [facility] 05-16-2024 10:38-0400 Body mass index (BMI) [Ratio] 56.5 kg/m2 [employer] Monique Emmanuel Work Phone: [facility] 05-16-2024 10:31-0400 Body height 157.48 cm [employer] Monique Emmanuel Work Phone: [facility] 05-16-2024 10:31-0400 Body weight 140.16 kg [employer] Monique Emmanuel Work Phone: [facility] 04-25-2024 13:27-0400 Diastolic blood pressure 85 mm[Hg] Pato Koehler [facility] 04-25-2024 13:27-0400 Heart rate 64 /min Pato Koehler [facility] 04-25-2024 13:27-0400 Mean blood pressure 103 mm[Hg] Pato Koehler [facility] 04-25-2024 13:27-0400 Systolic blood pressure 139 mm[Hg] Pato Koehler [facility] 04-25-2024 13:26-0400 Heart rate 65 /min Pato Koehler [facility] 04-25-2024 13:26-0400 Respiratory rate 16 /min Pato Koehler [facility] 04-25-2024 13:26-0400 SaO2% (BldA) [Mass fraction] 93 % Pato Koehler [facility] 04-25-2024 13:26-0400 Blood Pressure Location Pato Koehler [facility] 04-25-2024 13:26-0400 Body temperature 98.42 [degF] Pato Valentino [facility] 04-25-2024 13:26-0400 Diastolic blood pressure 83 mm[Hg] Pato Brown [facility] 04-25-2024 13:26-0400 Mean blood pressure 100 mm[Hg] Pato Brown [facility] 04-25-2024 13:26-0400 Systolic blood pressure 135 mm[Hg] Pato Koehler [facility] 02-27-2024 17:36-0400 Body height 154.94 cm [employer]ER[employer] Moniquegisselle Emmanuel Work Phone: [facility] 02-27-2024 17:36-0400 Body mass index (BMI) [Ratio] 58.4 kg/m2 [employer] Monique Lien Work Phone: [facility] 02-27-2024 17:36-0400 Body temperature 97.7 [degF] [employer]ER[employer]C Monique Whitleymer Work Phone: [facility] 02-27-2024 17:36-0400 Body weight 140.38 kg [employer] Monique Whitleymer Work Phone: [facility] 02-27-2024 17:36-0400 Heart rate 87 /min [employer] Monique Emmanuel Work Phone: [facility] 02-27-2024 17:36-0400 Respiratory rate 18 /min [employer] Monique Emmanuel Work Phone: [facility] 02-27-2024 17:36-0400 SaO2% (BldA) [Mass fraction] 97 % [employer] Monique Emmanuel Work Phone: [facility] 03-22-2022 16:45-0400 Body height 154.94 cm Monique Dudley Other [facility] Other 03-22-2022 16:45-0400 Body mass index (BMI) [Ratio] 58.38 kg/m2 Monique Dudley Other [facility] Other 03-22-2022 16:45-0400 Body temperature 97.9 [degF] Monique Dudley Other [facility] Other 03-22-2022 16:45-0400 Body weight 140.16 kg Monique Dudley Other [facility] Other 03-22-2022 16:45-0400 Diastolic blood pressure 93 mm[Hg] Monique Dudley Other [facility] Other 03-22-2022 16:45-0400 Respiratory rate 20 /min Monique Suemond Other [facility] Other 03-22-2022 16:45-0400 SaO2% (BldA) [Mass fraction] 98 % Monique Dudley Other [facility] Other 03-22-2022 16:45-0400 Systolic blood pressure 154 mm[Hg] Mnoique Seumond Other [facility] Other Encounters Encounter Date Encounter Type Care Provider Facility Start: 10-24-2024 End: 10-24-2024 Postop follow up visit related to original px Pato Koehler DPM Work Phone: [facility] Comment on above: Stress fracture of r ight foot, initial encounter (Primary Dx); Type 2 diabetes mellitus without complication, 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 fpc insulin use ([facility]); Accessory navicular bone of right foot Start: 10-24-2024 End: 10-24-2024 ambulatory PATO Elizabeth VALENTINO Not Available Start: 10-24-2024 End: 10-24-2024 Bamboo flowsheet Pato A Valentino DPM Work Phone: [facility] Start: 10-24-2024 End: 10-24-2024 Bamboo flowsheet Pato Johnson Valentino DPM Work Phone: [facility] Start: 10-04-2024 End: 10-04-2024 Postop follow up visit related to original px Pato Koehler DPM Work Phone: [facility] Comment on above: 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); Contracture of right ankle; Stress fracture of right foot, initial encounter Start: 10-04-2024 End: 10-04-2024 ambulatory PATO Elizabeth VALENTINO Not Available Start: 10-04-2024 End: 10-04-2024 Bamboo flowsheet Pato A Valentino DPM Work Phone: [facility] Start: 10-04-2024 End: 10-04-2024 Bamboo flowsheet Pato Elizabeth Valentino DPM Work Phone: [facility] Start: 09-20-2024 End: 09-20-2024 Postop follow up visit related to original px Pato Koehler DPM Work Phone: [facility] Comment on above: 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); Contracture of right ankle Start: 09-20-2024 End: 09-20-2024 ambulatory PATO KOEHLER Not Available Start: 09-20-2024 End: 09-20-2024 Bamboo flowsheet Pato Koehler DPM Work Phone: [facility] Start: 09-20-2024 End: 09-20-2024 Bamboo flowsheet Pato Koehler DPM Work Phone: [facility] Start: 09-13-2024 End: 09-13-2024 Postop follow up visit related to original px Pato Koehler DPM Work Phone: [facility] Comment on above: 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); Contracture of right ankle; Type 2 diabetes mellitus without complication, 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 fpc insulin use ([facility]) Start: 09-13-2024 End: 09-13-2024 ambulatory PATO KOEHLER Not Available Start: 09-07-2024 End: 09-07-2024 Telephone encounter Pato Koehler DPM Work Phone: [facility] Start: 09-05-2024 End: 09-05-2024 Lab Drop off Pato Koehler [facility] Start: 09-05-2024 End: 09-05-2024 ambulatory DPM Pato Koehler Facility:[facility] Start: 08-30-2024 End: 08-30-2024 Office outpatient visit 25 minutes Pato Koehler DPM Work Phone: [facility] Comment on above: 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); Type 2 diabetes mellitus without complication, 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 manager long term care insulin use ([facility]); Heel spur, left; Plantar fasciitis; Contracture of left ankle; Contracture of right ankle Start: 08-30-2024 End: 08-30-2024 ambulatory PATO KOEHLER Not Available Start: 08-30-2024 End: 08-30-2024 Bamboo flowsheet Pato Koehler DPM Work Phone: [facility] Start: 08-30-2024 End: 08-30-2024 Bamboo flowsheet Pato Koehler DPM Work Phone: [facility] Start: 08-02-2024 End: 08-02-2024 Office outpatient visit 15 minutes Pato Koehler DPM Work Phone: [facility] Comment on above: 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); Posterior tibial tendonitis of right leg; Type 2 diabetes mellitus without complication, 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 fpc insulin use ([facility]) Start: 08-02-2024 End: 08-02-2024 ambulatory PATO KOEHLER Not Available Start: 08-02-2024 End: 08-02-2024 Bamboo flowsheet Pato Koehler DPM Work Phone: [facility] Start: 08-02-2024 End: 08-02-2024 Bamboo flowsheet Pato Koehler DPM Work Phone: [facility] Start: 07-24-2024 End: 07-24-2024 Office outpatient new 45 minutes Jaime Camargo DO Work Phone: [facility] Comment on above: Arthralgia of left t emporomandibular joint (Primary Dx); Left ear pain; Chronic rhinitis; Fullness in ear, left Start: 07-24-2024 End: 07-24-2024 ambulatory JAIME CAMARGO Not Available Start: 07-24-2024 End: 07-24-2024 Bamboo flowsheet Jaime Palmer Biyoubach DO Work Phone: [facility] Start: 07-24-2024 End: 07-24-2024 Bamboo flowsheet Jaime Palmer Biyoubach DO Work Phone: [facility] Start: 07-19-2024 End: 07-19-2024 Office outpatient visit 15 minutes Pato Koehler DPM Work Phone: [facility] Comment on above: Posterior tibial ten donitis of right leg (Primary Dx); Accessory navicular bone of left foot; Type 2 diabetes mellitus without complication, 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 manager long term care insulin use ([facility]); Accessory navicular bone of right foot Start: 07-19-2024 End: 07-19-2024 ambulatory PATO KOEHLER Not Available Start: 07-19-2024 End: 07-19-2024 Bamboo flowsheet Pato Koehler DPM Work Phone: [facility] Start: 07-19-2024 End: 07-19-2024 Bamboo flowsheet Pato Koehler DPM Work Phone: [facility] Start: 07-19-2024 End: 08-02-2024 Telephone encounter Pato Koehler DPM Work Phone: [facility] Comment on above: Casting For Braces [facility] Orth[facility] Start: 06-28-2024 End: 06-28-2024 ambulatory PATO KOEHLER Not Available Start: 06-07-2024 End: 06-07-2024 ambulatory PATO KOEHLER Not Available Start: 05-24-2024 End: 05-24-2024 ambulatory PATO KOEHLER Not Available Start: 05-16-2024 End: 05-16-2024 Admission to same day surgery center [employer] ENGINEER-C Monique Emmanuel Work Phone: [facility] [place] Start: 05-16-2024 End: 05-16-2024 ambulatory [employer]C Monique Emmanuel Work Phone: [facility] Work Phone: Start: 05-03-2024 End: 05-03-2024 ambulatory PATO KOEHLER Not Available Start: 04-25-2024 ambulatory Pato Koehler Facili ty:[facility] Start: 04-25-2024 End: 04-25-2024 ambulatory DPM Pato Koehler Facility:[facility] Start: 04-25-2024 End: 04-25-2024 Patient encounter procedure Pato Koehler [facility] Start: 04-16-2024 End: 05-10-2024 Pre-admission assessment Pato Koehler [facility] Start: 04-12-2024 End: 04-12-2024 ambulatory PATO KOEHLER Not Available Start: 03-29-2024 End: 03-29-2024 ambulatory PATO KOEHLER Not Available Start: 02-27-2024 End: 02-27-2024 ambulatory [employer] Monique Emmanuel Work Phone: [facility] Work Phone: Start: 02-27-2024 End: 02-27-2024 Patient encounter procedure [employer] Monique Emmanuel Work Phone: [facility] Work Phone: Start: [...] medical examination without abnormal findings MONIQUE EMMANUEL [facility] Start: 08-18-2022 End: 08-19-2022 ambulatory MONIQUE EMMANUEL Facility:[facility] Start: 08-18-2022 End: 08-19-2022 Encounter for general adult medical examination without abnormal findings MONIQUE EMMANUEL Facility:[facility] Start: 06-01-2022 End: 06-01-[address] WESTLEY JHA Facility:[facility] Start: 03-22-2022 End: 03-22-2022 ambulatory Monique Dudley Other [facility] Other Start: 03-22-2022 Office outpatient vi sit 15 minutes Monique Dudley [facility] Procedures Date Procedure Procedure Detail Performing Clinician Start: 05-16-2024 Debridement [employer] Shruti Emmanuel Work Phone: Start: 05-16-2024 X-ray of left foot [employer] Monique Emmanuel Work Phone: Start: 02-27-2024 Plain X-ray of right shoulder [employer] Monique Emmanuel Work Phone: Cholecystectomy Pato pulliam Plan of Treatment Date Care Activity Detail Author Start: 11-01-2024 End: 11-01-2024 Patient encounter procedure 11/01/2024 4:20 PM EST Office Visit [facility] [address] [place] [address] Pato Koehler DPM [address] [address] [facility] Start: 10-24-2024 End: 10-24-2024 Patient encounter procedure 10/24/2024 2:40 PM EST Office Visit [facility] [address] [place] [id number] Pato Koehler DPM [address] [address] Stress fracture of right foot, initial encounter (Primary Dx); Type 2 diabetes mellitus without complication, 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 manager long term care insulin use ([facility]) [facility] Comment on above: Stress fracture of r ight foot, initial encounter (Primary Dx); Type 2 diabetes mellitus without complication, 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 fpc insulin use (CMS/[facility]) Start: 10-04-2024 End: 10-04-2024 Patient encounter procedure 10/04/2024 2:40 PM EST Office Visit [facility] [address] [place] [phone] Pato Koehler DPM [address] [address] 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); Contracture of right ankle [facility] Comment on above: 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); Contracture of right ankle Start: 09-20-2024 End: 09-20-2024 Patient encounter procedure 09/20/2024 2:40 PM EDT Office Visit [facility] [address] [address] Pato Koehler DPM [address] [address] 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); Contracture of right ankle [facility] Comment on above: 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); Contracture of right ankle Start: 09-13-2024 End: 09-13-2024 Patient encounter procedure 09/13/2024 3:20 PM EDT Office Visit [facility] [address] [facility] [address] [place] [address] Pato Koehler DPM [address] [address] [facility] Start: 09-12-2024 End: 09-12-2024 Patient encounter procedure 09/12/2024 3:00 PM EDT Office Visit [facility] [address] [place] [address] Pato Koehler DPM [address] [address] [facility] Start: 09-05-2024 End: 09-05-2024 Patient encounter procedure 09/05/2024 7:30 AM EDT Procedure Visit [facility] Pato Koehler DPM [address] [address] [facility] Start: 08-30-2024 End: 08-30-2024 Patient encounter procedure 08/30/2024 2:50 PM EDT Office Visit [facility] [address] [facility] [address] [place] [phone] Pato Koehler DPM [address] [address] 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); Type 2 diabetes mellitus without complication, 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 manager long term care insulin use (CMS/[facility]) [facility] Comment on above: 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); Type 2 diabetes mellitus without complication, 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 manager long term care insulin use (CMS/HCC) Start: 08-02-2024 End: 08-02-2024 Patient encounter procedure [facility] Comment on above: 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); Posterior tibial tendonitis of right leg; Type 2 diabetes mellitus without complication, 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 fpc insulin use (CMS/HCC) Start: 07-29-2024 Influenza vaccination Influenza Vacc ine (#1) [facility] Start: 07-24-2024 End: 07-24-2024 Patient encounter procedure [facility] Comment on above: Arrived Start: 07-19-2024 End: 07-19-2024 Patient encounter procedure 07/19/2024 4:00 PM EDT Office Visit [facility] [address] [place] [address] Pato Koehler DPM [address] [address] Accessory navicular bone of left foot (Primary Dx); Type 2 diabetes mellitus without complication, 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 fpc insulin use (CMS/HCC) [facility] Comment on above: Accessory navicular bone of left foot (Primary Dx); Type 2 diabetes mellitus without complication, 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 fpc insulin use (CMS/HCC) Start: 05-16-2024 [facility] Start: 05-16-2024 [facility] Start: 2018 Screening for malign ant neoplasm of cervix [facility] Start: 2009 Screening for malign ant neoplasm of cervix Pap Smear [facility] Start: 2007 Urine screening for protein Diabetes: Urine Protein Screening [facility] Start: 1998 Glaucoma screening Diabetes: R etinopathy Screening [facility] Start: 1988 Hemoglobin A1c measurement Diabetes: Hemoglobin A1C [facility] MR Foot - right WO contrast MR foot right wo IV contrast Imaging Routine Stress fracture of right foot, initial encounter Ordered: 10/04/2024 [facility] Work Phone: Comment on above: Ordered: 10/04/2024 Patient Education Know your Meds [facility] Work Phone: XR Foot - right 3 Views XR foot 3+ views right Imaging Routine Accessory navicular bone of right foot 09/13/2024 3:04 PM EDT [facility] Work Phone: XR Foot - right 3 Views XR foot 3+ views right Imaging Routine Accessory navicular bone of right foot 08/02/2024 3:28 PM EDT [facility] Work Phone: Immunizations Immunization Date Immunization Notes Care Provider Tony mcghee 07-19-2002 hepatitis B vaccine, pediatric or pediatric/adolescent dosage Jaime Camargo DO Work Phone: [facility] 07-19-2002 measles, mumps and rubella virus vaccine Jaime Camargo DO Work Phone: [facility] 04-16-1993 diphtheria, tetanus toxoids and pertussis vaccine Jaime Camargo DO Work Phone: [facility] 04-16-1993 trivalent poliovirus vaccine, live, oral Jaime Camargo DO Work Phone: [facility] 05-18-1990 haemophilus influenz ae type b vaccine, conjugate unspecified formulation Jaime Camargo DO Work Phone: [facility] 10-13-1989 diphtheria, tetanus toxoids and pertussis vaccine Jaime Camargo DO Work Phone: [facility] 10-13-1989 measles, mumps and rubella virus vaccine Jaime Camargo DO Work Phone: [facility] 10-13-1989 trivalent poliovirus vaccine, live, oral Jaime Camargo DO Work Phone: [facility] 05-11-1989 diphtheria, tetanus toxoids and pertussis vaccine Jaime Camargo DO Work Phone: [facility] 03-17-1989 diphtheria, tetanus toxoids and pertussis vaccine Jaime Camargo DO Work Phone: [facility] 03-17-1989 trivalent poliovirus vaccine, live, oral Jaime Camargo DO Work Phone: [facility] 1988 diphtheria, tetanus toxoids and pertussis vaccine Jaime Camargo DO Work Phone: [facility] 1988 trivalent poliovirus vaccine, live, oral Jaime Camargo DO Work Phone: [facility] Payers Date Payer Category Payer Self-pay [id number] 2020 [facility] [id number] 2020 Unknown BCBS BCBS [id number] 2020-Present [phone] [address] [place] [address] [id number]. 2.7.3.522524.315 1988 Unknown [id number] 2.16.840.1.508959.3.579. 2.593 1988 Unknown [id number] 2.16.840.1.774609.3.579. 2.593 1988 Unknown [id number] 2.16.840.1.343695.3.579. 2.593 1988 Unknown [id number] 2.16.840.1.020986.3.579. 2.593 1988 Unknown [id number] 2.16.840.1.729118.3.579. 2.593 1988 Unknown [id number] 2.16.840.1.084675.3.579. 2.593 1988 Unknown [id number] 2.16.840.1.780079.3.579. 2.593 1988 Unknown [id number] 2.16.840.1.015800.3.579. 2.593 1988 Unknown [id number] 2.16.840.1.544612.3.579. 2.727 1988 Unknown [id number] 2.16.840.1.073987.3.579. 2.1259 1988 Unknown [id number] 2.16.840.1.680538.3.579. 2.1259 1988 Unknown [id number] 2.16.840.1.979644.3.579. 2.1259 1988 Unknown [id number] 2.16.840.1.133585.3.579. 2.1259 1988 Unknown [id number] 2.16.840.1.566945.3.579. 2.1259 1988 Unknown [id number] 2.16.840.1.763519.3.579. 2.1259 1988 Unknown [id number] 2.16.840.1.329866.3.579. 2.727 1988 Unknown [id number] 2.16.840.1.997611.3.579. 2.9 1988 Unknown [id number] 2.16.840.1.184096.3.579. 2.1258 1988 Unknown [id number] 2.16.840.1.909271.3.579. 2.1258 1988 Unknown [id number] 2.16.840.1.380068.3.579. 2.1258 1988 Unknown [id number] 2.16.840.1.768012.3.579. 2.1258 1988 Unknown [id number] 2.16.840.1.649277.3.579. 2.1258 1988 Unknown [id number] 2.16.840.1.430271.3.579. 2.1258 1988 Unknown [id number] 2.16.840.1.643983.3.579. 2.1258 1988 Unknown [id number] 2.16.840.1.260037.3.579. 2.9 1988 Unknown [id number] 2.16.840.1.153592.3.579. 2.1259 1959 [facility] [id number] 2.16.840.1.425403.19 Unknown [id number] 2.16.840.1.524839.3.579. 2.531 Unknown [id number] 2.16.840.1.948138.3.579. 2.531 Social History Date Type Detail Facility Unknown if ever smoked [facility] Other Start: 07-24-2024 End: 08-02-2024 Sex Assigned At [facility] Start: 10-25-2018 End: 03-29-2024 Tobacco smoking status NHIS Never smoked tobacco (finding) [facility] Start: 1988 Sex Assigned At Female [facility] Tobacco smoking status No Smoking Status Entered [facility] Start: 03-29-2024 Tobacco use and exposure Smokeless tobacco non-user [facility] Start: 06-28-2024 End: 08-02-2024 Alcoholic beverage intake Lifetime non-drinker (finding) [facility] Start: 07-24-2024 End: 08-02-2024 History of Social function [facility] Start: 1990 Sex assigned at Not on file [facility] NEGATED: Highlighted rowStart: NINF History of tobacco use Passive smoker [facility] Goals Date Patient Goal Desired Activity /State Functional Status Date Assessment Result Facility 04-25-2024 Functional Status No [facility] Clinical Notes 03-22-2022 to 10-24-2024 Pato Koehler, CALLIE - 10/24/2024 2:40 PM Osman Koehler, DPM - 10/04/2024 2:40 PM ESTPato Koehler, DPM - 09/20/2024 2:30 PM EDTPato Koehler, DP [...] today for follow-up of MRI results at [facility]. Allergies: Allergies Allergen Reactions Sulfa Antibiotics [...] stress reaction. ASSESSMENT 49 days s/p modified Kenziener right foot 1. Stress fracture of right foot, initial encounter 2. Type 2 diabetes mellitus without complication, 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 fpc insulin use ([facility]) 3. Accessory navicular bone of right foot [...] need more invasive surgery. Will refer to [facility] Dr. [place] for referral and consultation at tertiary care center secondary to more advanced type procedure may be necessary. Will refer for consultation and possible further intervention Pato Koehler DPM documented in this encounter [facility] 10-04-2024 History of Presen t illness Narrative [...] History: Past Medical History: Diagnosis Date Diabetes ([facility]) Ear problems GERD (gastroesophageal reflux [...] Pato Koehler DPM documented in this encounter [facility] 09-20-2024 History of Presen t illness Narrative [...] History: Past Medical History: Diagnosis Date Diabetes ([facility]) Ear problems GERD (gastroesophageal reflux [...] Pato Koehler DPM documented in this encounter [facility] 09-07-2024 Telephone encount er Note Has been called for possible increase in pain medication and will switch from hydrocodone to oxycodone and sent to [facility] and [place] [facility] 09-07-2024 Miscellaneous Notes Formattin g of this note might be different from the original. Has been called for possible increase in pain medication and will switch from hydrocodone to oxycodone and sent to [facility] and [place] documented in this encounter [facility] 08-30-2024 History of Presen t illness Narrative [...] History: Past Medical History: Diagnosis Date Diabetes ([facility]) Ear problems GERD (gastroesophageal reflux [...] cool tibia to toes b/l NEURO: 5.07 Avant Deyanira monofilament test positive to digits and [...] 2 diabetes mellitus without complication, 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 manager long term care insulin use ([facility]) 3. Heel spur, left 4. [...] risks, alternatives, benefits, post op complications and fpc expectations were discussed including but not limited to: infection,bone infection,wound dehiscence hardware failure and irritation,wound dehiscence,delay union/mal union/non union of bone. RSDS,neuroma,duty limitations,DVT/PE, NH,nerve damage, scar, loss of sensation, swelling. Pt [...] Pato Koehler DPM documented in this encounter [facility] 08-02-2024 History of Presen t illness Narrative Patient: Kyung Paul : 1990 PCP: Erich Garcia MD SUBJECTIVE This is a 34 y.o. female that presents today 11 weeks s/p left Kidner procedure Pt denies n/f/v/c and has no pain to post op site. Pt states that they have been returned to normal shoe gear Patient states she also has pain to the right foot near navicular area and posterior tibial tendon that is been present since prior to previous left foot procedure procedure and rates pain a 7/10. Patient has tried multiple conservative treatments including walking boot and NSAIDs with negative improvement and presents today for possible discussion of surgery She is a type 2 diabetic with controlled sugars Allergies: Allergies Allergen Reactions Sulfa Antibiotics Rash and Hives Past Medical History: Past Medical History: Diagnosis Date Diabetes ([facility]) Ear problems GERD (gastroesophageal reflux [...] OBJECTIVE LE EXAM: Derm: Skin intact to left foot with negative erythema, negative drainage, and diminished edema with negative clinical signs of infection. Vascular: Palpable pedal pulses to left foot Neuro: Gross sensation intact to left foot. Musculoskeletal: Negative pain on palpation ezio eft calf. Ortho: Ankle range of motion less than 10 degrees of dorsiflexion at left ankle joint. Negative pain on palpation to the right calf region and left calf region Positive pain on palpation to the right navicular tuberosity and posterior tibial tendon insertion X-ray: Verbal order today for x-rays be taken by staff. AP/Oblique/Lateral 3 view radiographs today of the right foot demonstrated the following: Notable large navicular and on two views appears to be accessory navicular to the right foot with negative fractures identified ASSESSMENT 11 weeks s/p left Kidner procedure with tendon anchor 1. Accessory navicular bone of right foot 2. Posterior tibial tendonitis of right leg 3. Type 2 diabetes mellitus without complication, 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 manager long term care insulin use ([facility]) PLAN Patient to continue with oral anti - inflammatories as needed for pain and recommended OTC medications such as tylenol or Ibuprofen Recommended to apply ice to affected areas for 20 minutes, twice daily. Ice should not be applied directly to skin. Reviewed x-rays today with patient Pt presents today for casting of a removable foot inserts/orthotics today that was accomplished with scanning of feet and sent to orthotics lab.(L3020 right and L3020 left foot). Pt to have signed ABN for device if needed. It was explained to the patient of a break in period for the devices. The patient is ambulatory may benefit functionally for this device. It may be used for the following conditions as noted per EMR. Patient to have functional type device Patient states she has had this problem for many years and like surgical intervention at this time Discussed conservative and surgical treatment options for patient today including postoperative time frame and surgical procedure in detail. Patient may continue with conservative treatments including pava-brn-jrdshuq anti-inflammatories and other treatments suggested today. Patient may want to be scheduled for surgical intervention in the near future. Patient had a right modified Kidner procedure to the right foot with removal of accessory navicular with postoperative pain medicine of [place] and will see family Lien for preop clearance. This condition is unrelated to prior condition Pato Koehler DPM documented in this encounter [facility] 07-31-2024 Telephone encount er Note Pt called back, would like scanned at next appt [facility] 07-31-2024 Miscellaneous Notes Formattin g of this note might be different from the original. Pt called back, would like scanned at next appt Left vm to go over benefits Per call to [place] [employer] @ [phone] I verified the policy is current and active with an effective date of 11/28/2020. L3020 is covered at 100% as both the ded and oop have been met. There are no frequency limits, no exclusions, and no prior authorizations needed. Ref#: [id number]. Please precertify for custom orthotics for the diagnosis of Posterior tibial tendinitis bilaterally documented in this encounter [facility] 07-31-2024 Telephone encount er Note Left vm to go over benefits [facility] 07-27-2024 Telephone encount er Note Per call to [place] [employer] @ [phone] I verified the policy is current and active with an effective date of 11/28/2020. L3020 is covered at 100% as both the ded and oop have been met. There are no frequency limits, no exclusions, and no prior authorizations needed. Ref#: [id number]. [facility] 07-24-2024 History of Presen t illness Narrative Subjective Patient ID: Kyung Paul is a 34 y.o. female who presents for Otitis Externa (New Patient : Otitis externa left ear) HPI 34-year-old white female presents today for evaluation of ear pain and plugging. Patient has been diagnosed with otitis externa and placed on numerous courses of oral antibiotics as well as ear drops. Has had no improvement. Symptoms are usually isolated to the left side. Does describe occasional plugging of her ear. Denies any use of Q-tips. Review of Systems Patient describes sharp pain of the left ear which is episodic in nature. Denies any associated fever. Has been using antibiotic ear drops and oral antibiotics with no improvement. Denies any history of trauma to the region. The rest of her review of systems is negative. Objective ENT Physical Exam General Examination: General overview: Normal, age-appropriate, no evidence of distress Head: Normocephalic, palpation of the TMJs reveals significant discomfort with palpation on the left. Eyes: Pupils are equally round and reactive to light and accommodation, extraocular muscles are intact Ears: External ear architecture within normal limits, ear canals are patent, tympanic membranes are intact. Review of her audiogram reveals normal hearing and normal tympanogram Nose: External nose unremarkable, nares patent, septum intact, mild congestion is noted bilaterally. Oral cavity: Mucosa moist, no evidence of ulcer, mass, or lesion Throat: Clear Neck/thyroid: Neck supple, full range of motion, no cervical lymphadenopathy, no evidence of thyromegaly Lymph nodes: No cervical lymphadenopathy Skin: Warm and dry, no evidence of suspicious lesions, no rash Heart: No jugular venous distention, point of maximal impulse normal Lungs: Good air movement, no audible wheezing, no shortness of breath Chest: Normal shape and expansion Abdomen: Normal, soft, nontender, nondistended Musculoskeletal: Cervical spine normal, full range of motion Extremities: No clubbing, cyanosis, or edema Peripheral pulses: 2+ radial, 2+ carotid Neurologic: Alert and oriented, cranial nerves 2-12 are grossly intact Psych: Alert and oriented, normal affect, no evidence of distress Assessment/Plan Diagnoses and all orders for this visit: Arthralgia of left temporomandibular joint Comments: Regarding TMJ arthralgia. Left ear pain Chronic rhinitis Comments: Observe for worsening symptoms Fullness in ear, left Comments: Would anticipate improvement with medical therapy. The patient is encouraged to go on a soft diet for the next 7-10 days. Patient will use gmtv-[id number] ibuprofen 3 times a day with food to help decrease inflammation. The patient may also benefit from a mouth guard. We will consider referral to Dr. Adali SALAZAR if there is no improvement documented in this encounter [facility] 07-19-2024 Telephone encount er Note Please precertify for custom orthotics for the diagnosis of Posterior tibial tendinitis bilaterally [facility] 07-19-2024 History of Presen t illness Narrative Patient: Kyung Paul : 1990 PCP: [facility] Provider MD Milad SUBJECTIVE This is a 34 y.o. female that presents today 9 weeks s/p left Kidner procedure Pt denies n/f/v/c and has no pain to post op site. Pt states that they have been guarded weight-bearing with walking boot Pt presents today for follow up. Patient states she also has pain to the left foot near navicular area and incision and posterior tibial tendon that is been present since prior to procedure and rates pain a 7/10 Allergies: Allergies Allergen Reactions Sulfa Antibiotics Rash and Hives Past Medical History: Past Medical History: Diagnosis Date Diabetes ([facility]) Medications: Current Outpatient Medications: cholecalciferol (Vitamin D-3) [...] OBJECTIVE LE EXAM: Derm: Skin intact to left foot with negative erythema, negative drainage, edema with negative clinical signs of infection. Vascular: Palpable pedal pulses to left foot Neuro: Gross sensation intact to left foot. Musculoskeletal: Negative pain on palpation ezio eft calf. Ortho: Ankle range of motion less than 10 degrees of dorsiflexion at left ankle joint. Negative pain on palpation to the right calf region and left calf region Positive pain on palpation to the right navicular tuberosity and posterior tibial tendon insertion ASSESSMENT 9 weeks s/p left Kidner procedure with tendon anchor 1. Accessory navicular bone of left foot 2. Type 2 diabetes mellitus without complication, 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 fpc insulin use ([facility]) 3. Accessory navicular bone of right foot 4. Posterior tibial tendonitis of right leg PLAN Patient to continue with oral anti - inflammatories as needed for pain and recommended OTC medications such as tylenol or Ibuprofen Recommended to apply ice to affected areas for 20 minutes, twice daily. Ice should not be applied directly to skin. Discontinue walking boot and returned to normal weight-bearing activities Patient to follow up in 2 weeks and be pre-certify for inserts and have x-ray to the other foot for possible treatments Pato Koehler DPM documented in this encounter [facility] 03-22-2022 Evaluation note Encounter Date Diagnosis Assessment [...] no improvement in 5 to 7 days. [facility] Other Evaluation + Plan note Future Appointments Appointment Date:05/09/2024 07:30:00 AM Scheduled Provider: Location:[facility] Work Phone: Evaluation note* Diagnosis 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 Type 2 diabetes mellitus without complication, 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 manager long term care insulin use (CMS/HCC) Heel spur, left Plantar fasciitis Plantar fascial fibromatosis Contracture of left ankle Contracture of right ankle [facility] Diagnosis 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 [facility] Diagnosis 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 Contracture of right ankle Type 2 diabetes mellitus without complication, 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 fpc insulin use (CMS/HCC) [facility] Diagnosis 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 Contracture of right ankle [facility] Diagnosis 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 Contracture of right ankle Stress fracture of right foot, initial encounter [facility] Diagnosis Stress fracture of right foot, initial encounter- Primary Type 2 diabetes mellitus without complication, 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 manager long term care insulin use (CMS/HCC) Accessory navicular bone of right foot [facility] Diagnosis Posterior tibial tendonitis of right leg- Primary Accessory navicular bone of left foot Type 2 diabetes mellitus without complication, 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 manager long term care insulin use (CMS/HCC) Accessory navicular bone of right foot [facility] Diagnosis Arthralgia of left temporomandibular joint- Primary Left ear pain Unspecified otalgia Chronic rhinitis Fullness in ear, left [facility] Diagnosis 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 Posterior tibial tendonitis of right leg Type 2 diabetes mellitus without complication, 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 manager long term care insulin use (CMS/HCC) [facility] Diagnosis Accessory navicular bone of left foot- Primary documented in this encounter [facility] general Narrative - Reported* Type Description Date Medical History Acquired hypothyroidism Medical History vitamin D deficiency Surgical History cholecystectomy Hospitalization History No Hospitalization histo ry information [place] [facility] Other History of Present illness Narrative* Pato Koehler DPM - 09/13/2024 3:20 PM EDT Patient: [...] History: Past Medical History: Diagnosis Date Diabetes ([facility]) Ear problems GERD (gastroesophageal reflux [...] 2 diabetes mellitus without complication, 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 manager long term care insulin use ([facility]) PLAN Patient to keep dry [...] patient [facility] N[facility] No data available for this section [facility] Discharge instructions No data available for this section [facility] Discharge instructions Additional Instructions DISCHARGE INSTRUCTIONS [...] operative site FOLLOW UP Phone numbers: Office [phone] [ ][facility] Work Phone: Progress note No data available for this section [facility] Summary Purpose Family History Relationship Condition Age [...] Accessory navicular bone of right foot Pato Koehler, DPMadi [address] [address] Referral ID Status Reason Start Date Expiration Date V isits Requested Visits Authorized [id number] Pending Review 09/07/2024 03/06/2025 1 1 Additional Source Comments REASON FOR VISIT (unrecogniz ed section and content) Reason Comments Consent Or Instructions Pre op- rt kidne r Reason Comments Post-op 1st post op rt ft Reason Comments Post-op 16 D post op rt ft Reason Comments Post-op 29 D rt ft F/U Reason Comments Follow-up ER FOLLOW UP Reason Comments Otitis Externa New Patient : Otitis externa left ear Reason Comments Foot Pain F/U rt ft pain Reason Onset Date Comments Casting For Braces Or Orthotics 07/19/2024 INFORMATION SOURCE (unrecogn ized section and content) DATE CREATED AUTHOR 05/06/2023 [facility] DATE CREATED AUTHOR AUTHOR'S ORGANIZ ATION 04/26/2024 [facility] DATE CREATED AUTHOR AUTHOR'S ORGANIZ ATION 05/25/2024 [facility] DATE CREATED AUTHOR AUTHOR'S ORGANIZ ATION 07/01/2024 [facility] DATE CREATED AUTHOR AUTHOR'S ORGANIZ ATION 09/12/2024 [facility] DATE CREATED AUTHOR AUTHOR'S ORGANIZ ATION 09/13/2024 [facility] DATE CREATED AUTHOR AUTHOR'S ORGANIZ ATION 09/15/2024 [facility] DATE CREATED AUTHOR AUTHOR'S ORGANIZ ATION 10/27/2024 [facility] EPIC Care Teams (unrecognized sec tion and content) Team Status: Active Member Role Status Dates Monique Emmanuel NP-Teresa Primary Care Provider Active Team Status: Inactive Member Role Status Dates Monique Dudley NP-Teresa Attending Provider Active S tart: February 27, 2024 End: February 27, 2024 LORI Alvarez Primary Care Provider Active Start: February 27, 2024 End: February 27, 2024 Team Status: Active Member Role Status Dates LORI Pat Attending Provider Active S tart: February 27, 2024 LORI Alvarez Primary Care Provider Active Start: February 27, 2024 Team Status: Inactive Member Role Status Dates Monique Emmanuel NP-Teresa Primary Care Provider Active Start: May 16, 2024 End: May 16, 2024 Pato Koehler DPM Attending Provider Active Start: May 16, 2024 End: May 16, 2024 Straightening Press Operator Relationship Specialty Start Date End Date Erich Garcia MD [address] [place] [phone] PCP - General Family Medicine 07/24/24 Monique Emmanuel MD [address] [place] [phone] Referring Physician Family Medicine 03/29/24 Monique Emmanuel MD [address] [place] [phone] Referring Physician Family Medicine 07/24/24 Jaime Camargo DO [address] [place] [address] Otolaryngology 07/24/24 Straightening Press Operator Relationship Specialty Start Date End Date Erich Garcia MD [address] [place] [phone] PCP - General Family Medicine 07/24/24 Monique Emmanuel MD [address] [place] [phone] Referring Physician Family Medicine 03/29/24 Monique Emmanuel MD [address] [place] [phone] Referring Physician Family Medicine 07/24/24 Jaime Camargo DO [address] [place] [address] Otolaryngology 07/24/24 Straightening Press Operator Relationship Specialty Start Date End Date Erich Garcia MD [address] [place] [phone] PCP - General Family Medicine 07/24/24 Monique Emmanuel MD [address] [place] [phone] Referring Physician Family Medicine 03/29/24 Monique Emmanuel MD [address] [place] [phone] Referring Physician Family Medicine 07/24/24 Jaime Camargo DO [address] [place] [address] Otolaryngology 07/24/24 Straightening Press Operator Relationship Specialty Start Date End Date Erich Garcia MD [address] [place] [phone] PCP - General Family Medicine 07/24/24 Monique Emmanuel MD [address] [place] [phone] Referring Physician Family Medicine 03/29/24 Monique Emmanuel MD [address] [place] [phone] Referring Physician Family Medicine 07/24/24 Jaime Camargo DO [address] [place] [address] Otolaryngology 07/24/24 Straightening Press Operator Relationship Specialty Start Date End Date Erich Garcia MD [address] [place] [phone] PCP - General Family Medicine 07/24/24 Monique Emmanuel MD [address] [place] [phone] Referring Physician Family Medicine 03/29/24 Monique Emmanuel MD [address] [place] [phone] Referring Physician Family Medicine 07/24/24 Jaime Camargo DO [address] [place] [address] Otolaryngology 07/24/24 Straightening Press Operator Relationship Specialty Start Date End Date Erich Garcia MD [address] [place] [phone] PCP - General Family Medicine 07/24/24 Monique Emmanuel MD [address] [place] [phone] Referring Physician Family Medicine 03/29/24 Monique Emmanuel MD [address] [place] [address] [phone] Referring Physician Family Medicine 07/24/24 Jaime Camargo DO [address] [place] [address] Otolaryngology 07/24/24 Straightening Press Operator Relationship Specialty Start Date End Date Erich Garcia MD [address] [place] [phone] PCP - General Family Medicine 07/24/24 Monique Emmanuel MD [address] [place] [phone] Referring Physician Family Medicine 03/29/24 Monique Emmanuel MD [address] [place] [phone] Referring Physician Family Medicine 07/24/24 Jaime Camargo DO [address] [place] [address] Otolaryngology 07/24/24 Straightening Press Operator Relationship Specialty [place] [address] [place] [phone] PCP - General Family Medicine 07/24/24 Monique Emmanuel MD [address] [place] [phone] Referring Physician Family Medicine 03/29/24 Monique Emmanuel MD [address] [place] [phone] Referring Physician Family Medicine 07/24/24 Jaime Camargo DO [address] [place] [address] Otolaryngology 07/24/24 Straightening Press Operator Relationship Specialty Start Date End Date Unallocated, Noms MD Ousmane [address] [place] [address] PCP - General Family Medicine 03/29/24 Monique Emmanuel MD [address] [place] [phone] Referring Physician Family Medicine 03/29/24 Straightening Press Operator Relationship Specialty Start Date End Date Erich Garcia MD [address] [place] [phone] PCP - General Family Medicine 07/24/24 Monique Emmanuel MD [address] [place] [phone] Referring Physician Family Medicine 03/29/24 Monique Emmanuel MD [address] [place] [phone] Referring Physician Family Medicine 07/24/24 Jaime Camargo DO [address] [place] [address] Otolaryngology 07/24/24 Straightening Press Operator Relationship Specialty Start Date End Date Unallocated, Noms MD Ousmane [address] [place] [address] PCP - General Family Medicine 03/29/24 Monique Emmanuel MD [address] [place] [phone] Referring Physician Family Medicine 03/29/24 Straightening Press Operator Relationship Specialty Start Date End Date Erich Garcia MD [address] [place] [phone] PCP - General Family Medicine 07/24/24 Monique Emmanuel MD [address] [place] [phone] Referring Physician Family Medicine 03/29/24 Monique Emmanuel MD [address] [place] [phone] Referring Physician Family Medicine 07/24/24 Jaime Camargo DO [address] [place] [address] Otolaryngology 07/24/24 Straightening Press Operator Relationship Specialty Start Date End Date Erich Garcia MD [address] [place] [phone] PCP - General Family Medicine 07/24/24 Monique Emmanuel MD [address] [place] [phone] Referring Physician Family Medicine 03/29/24 Monique Emmanuel MD [address] [place] [phone] Referring Physician Family Medicine 07/24/24 Jaime Camargo DO [address] [place] [address] Otolaryngology 07/24/24 Straightening Press Operator Relationship Specialty Start Date End Date Erich Garcia MD [address] [place] [phone] PCP - General Family Medicine 07/24/24 Monique Emmanuel MD [address] [place] [phone] Referring Physician Family Medicine 03/29/24 Monique Emmanuel MD [address] [place] [address] [phone] Referring Physician Family Medicine 07/24/24 Jaime Camargo DO [address] [place] [address] Otolaryngology 07/24/24 Straightening Press Operator Relationship Specialty Start Date End Date Unallocated, Yashira Romeo MD [address] [facility] [place] [address] PCP - General Family Medicine 03/29/24 07/23/24 Erich Garcia MD [address] [place] [phone] PCP - General Family Medicine 07/24/24 Monique Emmanuel MD [address] [place] [phone] Referring Physician Family Medicine 03/29/24 Monique Emmanuel MD [address] [place] [address] Referring Physician Family Medicine 07/24/24 Jaime Camargo DO [address] [place] [address] Otolaryngology 07/24/24 Goals (unrecognized section and content) [...] BE BASED ON THE PRIMARY CLINICAL RECORDS. [employer] provides no warranty or guarantee of the accuracy or completeness of information in this document.
[2024-11-17 15:15] VITALS: BP 148/90; PULSE 80; TEMP 37; O2SAT 97; BMI 60.4
[2024-11-17 15:25] VITALS: O2SAT 97
--- NOTE | 2024-11-17 15:30 | CT_ITS ---
The [address] [address] Patient Name: NOEL ROCHE MRN: [id number] date: 1990 Sex: F Assigned Patient Location: ER Current Patient Location: ER Accession/Order Number: [id number] Exam Date: 11/17/2024 16:00 Report Date: 11/17/2024 16:54 At the request of: CHARLI GONCALVES Procedure: CT facial bones w con EXAM: CT facial bones w con HISTORY: right maxillary swelling COMPARISON: CT neck with contrast 08/09/2020. TECHNIQUE: CT facial bones with contrast. Axial scans with reformatted coronal and sagittal images. Individualized radiation dose reduction used for this exam. Contrast: 100 mL Omnipaque 200 Findings FINDINGS: Right facial inflammation stranding seen in the subcutaneous tissues near the right parotid gland. The gland itself is incompletely visualized on this study, correlate for parotiditis. I do not see inflammation elsewhere. Mildly prominent right neck lymph nodes felt to be reactive. These findings are new from the previous neck CT. Dental hardware artifact seen without significant dental disease. There is no inflammation seen around the maxillary mandible. Tonsillar soft tissues mildly prominent felt to be unchanged. No airway encroachment. Submandibular glands are partially imaged without definite abnormality. No vascular abnormality. Visualized cervical spine, brain, external auditory canals unremarkable. Sinus thickening left sphenoid and ethmoid. Visualized mastoid middle ear cavities clear. No suspicious bone lesion or fracture or destruction. CT/CT facial bones w con IMPRESSION: Right facial inflammation partially imaged question whether this is related to parotiditis/parotid gland. The gland itself is incompletely visualized. Correlate clinically. Prominent right neck lymph nodes likely reactive. Other incidental findings as noted above. Sinus thickening/retained secretions noted ethmoid and left sphenoid sinus. Electronically authenticated by: CRISTIAN SAHA Date: 11/17/2024 16:54
[2024-11-17 15:56] LABS: Basophils Percent Auto 0.5 % (0.2-2.0); Eosinophils Absolute Auto 0.3 10^3/uL (0.0-0.7); Eosinophils Percent Auto 4.3 % (0.9-7.0); Hematocrit 38.8 % (36.0-48.0); Hemoglobin 11.7 g/dL (12.0-16.0); Immature Granulocytes Abs Auto 0.03 10^3/uL (0.00-0.03); Immature Granulocytes Pct Auto 0.5 % (0.0-0.5); Lymphocytes Absolute Auto 1.6 10^3/uL (1.2-3.8); Lymphocytes Percent Auto 26.7 % (20.5-60.0); Mean Corpuscular HGB Conc 30.2 g/dL (29.9-35.2); Mean Corpuscular Hemoglobin 25.2 pg (26.7-34.0); Mean Corpuscular Volume 83.4 fL (81.0-99.0); Mean Platelet Volume 9.5 fL (9.5-13.5); Monocytes Absolute Auto 0.5 10^3/uL (0.3-0.8); Monocytes Percent Auto 8.1 % (1.7-12.0); Neutrophils Absolute Auto 3.6 10^3/uL (1.4-6.5); Neutrophils Percent Auto 59.9 % (43.0-75.0); Platelet Count 312 10^3/uL (150-450); Red Blood Count 4.65 10^6/uL (4.20-5.40); Red Cell Distribution Width 15.2 % (11.0-15.0)
[2024-11-17 16:07] LABS: Internal Control Within Normal Limits; SARS-CoV-2 Ag NEGATIVE (NEGATIVE)
[2024-11-17 16:10] LABS: Alanine Aminotransferase 39 U/L (14-59); Albumin Globulin Ratio 0.7; Albumin Level 3.1 g/dL (3.4-5.0); Alkaline Phosphatase 58 U/L (46-116); Anion Gap 12.6; Aspartate Amino Transferase 25 U/L (15-37); BUN Creatinine Ratio 13.2; Bilirubin Total 0.4 mg/dL (0.2-1.0); Calcium 8.9 mg/dL (8.5-10.1); Carbon Dioxide 30.4 mmol/L (21.0-32.0); Chloride 105 mmol/L (98-107); Estimated GFR (African America >60 (>=60 mL/min/1.73m^2); Estimated GFR (Non-African Ame >60 (>=60 mL/min/1.73m^2); Globulin 4.2 g/dL; Glucose 116 mg/dL (74-106); Sodium 144 mmol/L (136-145); Total Protein 7.3 g/dL (6.4-8.2)
[2024-11-17] MEDS: AMPICILLIN SODIUM/SULBACTAM NA 3 GM in 0.9 % SODIUM CHLORIDE 100 ML IV (16:18)
--- NOTE | 2024-11-17 17:15 | ED.GENADUL1 ---
HPI HPI - General Adult General Chief complaint: Upper Respiratory Infection Stated complaint: R FACIAL SWELLING, R FACIAL PAIN Time Seen by Provider: 11/17/24 15:20 Source: patient Mode of arrival: walk-in Limitations: no limitations History of Present Illness HPI narrative: 34-year-old female presents here with chief complaint of right-sided facial pain and swelling. Patient denies any dental pain. She states she had an upper respiratory infection for the past week and developed swelling over the past 24 hours. She is not currently febrile. She recently had shoulder surgery was also diagnosed with pneumonia post surgery. She states she completed antibiotics last week from that infection. Denies any chest pain or shortness of breath. Significant swelling palpated to the right maxillary sinus, preauricular region. Patient is able to open and close the mouth. Does not appear to have any difficulty swallowing or breathing. Related Data Home Medications ?Medication ?Instructions ?Recorded ?Confirmed cholecalciferol (vitamin D3) 125 125 mcg PO QAM 10/26/24 11/06/24 mcg (5,000 unit) tablet escitalopram oxalate 20 mg tablet 20 mg PO QAM 10/26/24 11/05/24 glipizide 5 mg tablet 5 mg PO QAM 10/26/24 11/05/24 metformin 500 mg tablet 500 mg PO BID 10/26/24 11/05/24 phentermine 37.5 mg tablet 37.5 mg PO QAM 10/26/24 11/05/24 trazodone 100 mg tablet 100 mg PO QPM PRN sleep 10/26/24 11/06/24 Previous Rx's ?Medication ?Instructions ?Recorded ketorolac 10 mg tablet 10 mg PO TID 5 days #15 tabs 11/05/24 oxycodone-acetaminophen 5 mg-325 1 tab PO Q4H PRN pain 7 days #40 11/05/24 mg tablet (Percocet) tabs cefdinir 300 mg capsule 600 mg (2 x 300 mg) PO DAILY #20 11/06/24 caps levofloxacin 750 mg tablet 750 mg PO DAILY 10 days #10 tabs 11/06/24 amoxicillin 875 mg-potassium 1 tab PO BID #20 tabs 11/17/24 clavulanate 125 mg tablet ibuprofen 800 mg tablet 800 mg PO Q8H PRN pain #30 tabs 11/17/24 Allergies Allergy/AdvReac Type Severity Reaction Status Date / Time Sulfa (Sulfonamide Allergy Severe Hives Verified 10/26/24 10:22 Antibiotics) Opioid HPI Opioid Management Most Recent Opioid Data: Last Pain Scale 4 11/06/24 12:29 11/06/24 Last ED Pain Assessment 11/17/24 15:25 Last MAR Pain Assessment 11/17/24 17:22 Last ORT Total Score 1 11/05/24 18:57 11/05/24 Last ORT Risk Category Low Risk 11/05/24 18:57 11/05/24 Review of Systems ROS Narrative All Systems are negative except as noted/marked.All systems reviewed and otherwise negative PFSH PFS Medical History (Updated 11/17/24 @ 17:09 by Vilma Hamilton) Arthritis of right acromioclavicular joint ?M19.011 - Primary osteoarthritis, right shoulder (ICD-10) Acromioclavicular joint arthritis ?M19.019 - Primary osteoarthritis, unspecified shoulder (ICD-10) Accessory navicular bone of both feet ?Q74.2 - Other congenital malformations of lower limb(s), including pelvic girdle (ICD-10) Navicular fracture of ankle ?S92.253A - Displaced fracture of navicular [scaphoid] of unspecified foot, initial encounter for closed fracture (ICD-10) Osteoarthritis ?M19.90 - Unspecified osteoarthritis, unspecified site (ICD-10) Insomnia ?G47.00 - Insomnia, unspecified (ICD-10) Anxiety ?F41.9 - Anxiety disorder, unspecified (ICD-10) Restless leg ?G25.81 - Restless legs syndrome (ICD-10) GERD (gastroesophageal reflux disease) ?K21.9 - Gastro-esophageal reflux disease without esophagitis (ICD-10) Diabetes ?E11.9 - Type 2 diabetes mellitus without complications (ICD-10) Surgical History (Updated 10/26/24 @ 10:36 by Laura Cabral) History of cholecystectomy ?Z90.49 - Acquired absence of other specified parts of digestive tract (ICD-10) Family History (Updated 10/26/24 @ 10:32 by Laura Cabral) Other Family history of COPD (chronic obstructive pulmonary disease) Family history of coronary artery disease Family history of diabetes mellitus Family history of seizures Social History (Updated 10/26/24 @ 10:30 by Laura Cabral) Within the past year, how often did you have a drink containing alcohol: never Score interpretation: A score less than 3 is consistent with normal alcohol consumption. 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 General: The patient appears well and in no apparent distress. Patient is resting comfortably on cart. Skin: Warm, dry, no pallor noted. There is no rash noted. Head: Normocephalic, atraumatic Face: Right-sided facial swelling palpated questionable abscess formation, maxillary sinus versus parotid inflammation Eye: Normal conjunctiva, no drainage, EOMI. PERRL Ears, Nose, Mouth, and Throat: oral mucosa is moist. Nares patent. Mouth without vesicles. Ear canals patent. Tm's without Erythema Cardiovascular: Regular Rate and Rhythm Respiratory: Patient is in no distress, no accessory muscle use, lungs are clear to auscultation, no wheezing, rales or rhonchi Back: non-tender, no CVA tenderness bilaterally to percussion. GI: Normal bowel sounds, no tenderness to palpation, no masses appreciated. No rebound, guarding, or rigidity noted. Musculoskeletal: The patient has no evidence of calf tenderness, no pitting edema, symmetrical pulses noted bilaterally Neurological: A&O x4, normal speech Psychiatric: Cooperative Constitutional Vital Signs, click to edit/add: Last Vital Signs Temp 98.6 F 11/17/24 15:15 Pulse 80 11/17/24 15:15 Resp 16 11/17/24 15:15 BP 148/90 H 11/17/24 15:15 Pulse Ox 97 11/17/24 15:25 O2 Del Method Room Air 11/17/24 15:25 Course Vital Signs Vital signs: Vital Signs Temperature 98.6 F 11/17/24 15:15 Pulse Rate 80 11/17/24 15:15 Respiratory Rate 16 11/17/24 15:15 Blood Pressure 148/90 H 11/17/24 15:15 Pulse Oximetry 97 11/17/24 15:15 Oxygen Delivery Method Room Air 11/17/24 15:15 Temperature 98.6 F 11/17/24 15:15 Pulse Rate 80 11/17/24 15:15 Respiratory Rate 16 11/17/24 15:15 Blood Pressure 148/90 H 11/17/24 15:15 Pulse Oximetry 97 11/17/24 15:25 Oxygen Delivery Method Room Air 11/17/24 15:25 Medical Decision Making MDM Narrative Medical decision making narrative: 34-year-old female presents here with chief complaint of right-sided facial pain and swelling. Patient denies any dental pain. She states she had an upper respiratory infection for the past week and developed swelling over the past 24 hours. She is not currently febrile. She recently had shoulder surgery was also diagnosed with pneumonia post surgery. She states she completed antibiotics last week from that infection. Denies any chest pain or shortness of breath. Significant swelling palpated to the right maxillary sinus, preauricular region. Patient is able to open and close the mouth. Does not appear to have any difficulty swallowing or breathing Upon arrival to the emergency room, and found to have right sided facial pain and swelling questionable abscess. IV Established and blood work including blood cultures were obtained. CT scan of the facial bones was noted and it did come back for parotiditis. There is no acute abscess. Patient was medicated here with IV Unasyn and will be discharged home with Augmentin and ibuprofen. Tolerating secretions and shows no signs of any difficulty swallowing or breathing. Patient should be able to be discharged to home and follow-up primary care physician Differential Diagnosis Differential Diagnosis: Facial abscess, sinusitis, parotiditis Medical Records Medical records reviewed: Yes I reviewed the patient's medical records Lab Data Lab results reviewed: Yes I reviewed the patient's lab results Labs: Lab Results 11/17/24 11/17/24 Range/Units 15:38 15:45 WBC 6.0 (4.0-11.0) 10^3/uL RBC 4.65 (4.20-5.40) 10^6/uL Hgb 11.7 L (12.0-16.0) g/dL Hct 38.8 (36.0-48.0) % MCV 83.4 (81.0-99.0) fL MCH 25.2 L (26.7-34.0) pg MCHC 30.2 (29.9-35.2) g/dL RDW 15.2 H (11.0-15.0) % Plt Count 312 (150-450) 10^3/uL MPV 9.5 (9.5-13.5) fL Neut % (Auto) 59.9 (43.0-75.0) % Lymph % (Auto) 26.7 (20.5-60.0) % Millard % (Auto) 8.1 (1.7-12.0) % Eos % (Auto) 4.3 (0.9-7.0) % Baso % (Auto) 0.5 (0.2-2.0) % Neut # (Auto) 3.6 (1.4-6.5) 10^3/uL Lymph # (Auto) 1.6 (1.2-3.8) 10^3/uL Millard # (Auto) 0.5 (0.3-0.8) 10^3/uL Eos # (Auto) 0.3 (0.0-0.7) 10^3/uL Baso # (Auto) 0.0 (0.0-0.1) 10^3/uL Abs Immat Gran (auto) 0.03 (0.00-0.03) 10^3/uL Imm/Tot Granulo (auto) 0.5 (0.0-0.5) % Sodium 144 (136-145) mmol/L Potassium 4.0 (3.5-5.1) mmol/L Chloride 105 (98-107) mmol/L Carbon Dioxide 30.4 (21.0-32.0) mmol/L Anion Gap 12.6 BUN 12.0 (7.0-18.0) mg/dL Creatinine 0.91 (0.55-1.02) mg/dL Est GFR ( Amer) >60 (>=60 mL/min/1.73m^2) Est GFR (Non-Af Amer) >60 (>=60 mL/min/1.73m^2) BUN/Creatinine Ratio 13.2 Glucose 116 H (74-106) mg/dL Calcium 8.9 (8.5-10.1) mg/dL Total Bilirubin 0.4 (0.2-1.0) mg/dL AST 25 (15-37) U/L ALT 39 (14-59) U/L Alkaline Phosphatase 58 (46-116) U/L Total Protein 7.3 (6.4-8.2) g/dL Albumin 3.1 L (3.4-5.0) g/dL Globulin 4.2 g/dL Albumin/Globulin Ratio 0.7 SARS-CoV-2 Ag (CV2AG) Negative (NEGATIVE) Imaging Data ct facial: Radiologist's impression: ITS Impressions Facial Bones CT 11/17/24 15:30 IMPRESSION: Right facial inflammation partially imaged question whether this is related to parotiditis/parotid gland. The gland itself is incompletely visualized. Correlate clinically. Prominent right neck lymph nodes likely reactive. Other incidental findings as noted above. Sinus thickening/retained secretions noted ethmoid and left sphenoid sinus. Electronically authenticated by: CRISTIAN SAHA Date: 11/17/2024 16:54 Discharge Plan Discharge Chief Complaint: Upper Respiratory Infection Clinical Impression: Acute parotitis Patient Disposition: Home, Self-Care Time of Disposition Decision: 17:09 Condition: Good Prescriptions / Home Meds: New ibuprofen 800 mg tablet 800 mg PO Q8H PRN (Reason: pain) Qty: 30 0RF amoxicillin-pot clavulanate 875-125 mg tablet 1 tab PO BID Qty: 20 0RF No Action cholecalciferol (vitamin D3) 125 mcg (5,000 unit) tablet 125 mcg PO QAM escitalopram oxalate 20 mg tablet 20 mg PO QAM glipizide 5 mg tablet 5 mg PO QAM phentermine 37.5 mg tablet 37.5 mg PO QAM trazodone 100 mg tablet 100 mg PO QPM PRN (Reason: sleep) metformin 500 mg tablet 500 mg PO BID oxycodone-acetaminophen [Percocet] 5-325 mg tablet 1 tab PO Q4H PRN (Reason: pain) 7 Days Qty: 40 0RF ketorolac 10 mg tablet 10 mg PO TID 5 Days Qty: 15 0RF levofloxacin 750 mg tablet 750 mg PO DAILY 10 Days Qty: 10 0RF cefdinir 300 mg capsule 600 mg PO DAILY Qty: 20 0RF Rx Instructions: Cancel levofloxacin Print Language: Turkmen Additional Instructions: Your exam is consistent with parotitis, inflammation of the parotid gland. take antibiotics until they are completely gone. You will also be prescribed with motrin for pain. Return with worsening swelling or fevers greater than 102. Follow-up with your primary care physician. Referrals: GUERRERO EMMANUEL [Primary Care Provider] - 1 week
[2024-11-17] MEDS: DEXAMETHASONE SOD PHOS 10 MG/ML VIAL IV (17:22)
[2024-11-17] MEDS: KETOROLAC TROMETHAMINE 30 MG/ML VIAL IVP (17:22)
== END 2024-11-17 17:29 | disposition home or self-care (01) ==
PROVIDERS: Physician Assistant; Emergency Provider Emergency Medicine; PCP Nurse Practitioner Family
DX: K11.21 Acute sialoadenitis (principal); Z87.01 Personal history of pneumonia (recurrent); Z90.49 Acquired absence of other specified parts of digestive tract; Z98.890 Other specified postprocedural states
CPT/HCPCS: 36415; 70487; 80053; 85025; 87040; 87811; 96365; 96375; 99285; J0295; J1100; J1885; Q9967

== ENCOUNTER 2024-11-20 20:34 | Emergency (ER) | payer BC, SELFPAY ==
[2024-11-20 20:38] VITALS: BP 168/115; PULSE 78; TEMP 36.8; O2SAT 96; BMI 58.5
--- OUTSIDE RECORDS SUMMARY | 2024-11-20 20:38 | XMS_ITS | CCD ---
Author Organization 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) Other (1 source) Sulf-10 Drug allergy [facility] (acquired by [employer] in 2014) Other (1 source) Sulfonamides (Antibiotic) Drug allergy (disorder) 3 [facility] (4 sources) Sulfonamides (Antibiotic); Translations: [Sulfa (Sulfonamide Antibiotics)] Allergy to substance 4 [facility] (4 sources) Egg Derived; Translations: [Egg Derived] Allergy to substance 4 [facility] (5 sources) Sulfonamides (Antibiotic); Translations: [sulfa drugs] Drug allergy [facility] (20 sources) Sulfonamides (Antibiotic) Drug Allergy Rash, Hives [facility] Medications Current Medications Medication Drug Class(es) Dates Sig (Normalized) Sig (Original) acetaminophen 325 mg / HYDROcodone bitartrate 5 mg oral tablet (2 sources) Opioid Agonist Start: 08-30-2024 End: 09-04-2024 take 1 tablet by mouth every eight hours as needed for pain HYDROcodone-aceta minophen ([place]) 5-325 MG tablet Indications: Pain Take 1 [...] day at the same time 03/12/2024 Active [place] [facility] (3 sources) Start: 02-27-2024 [place] [facility] [place] Active 0 .Route 1 February [...] Surgical Pathology Reporton 09-12-2024 Surgical Pathology Report [address] [address]- Surgical Pathology Report Collected Date/Time: 09/05/2024 08:32 [...] DIAGNOSIS. Addition of clinical information only. Normal [facility] Comment on above: Performed By: #### 4 [id number] #### [facility] Laboratory [address] [place] [address] Surgical Pathology Reporton 09-11-2024 Surgical Pathology Report [facility] [address] [facility] [place] [address]- Surgical Pathology Report Collected Date/Time: 09/05/2024 08:32 [...] examination performed unless gross only specified. Normal [facility] Comment on above: Performed By: #### 4 [id number] #### [facility] Laboratory [address] [place] [address] Basic Metabolic Panelon 04-28 Creatinine Clr Calc Pharmacy 161.75 Normal [facility] Comment on above: Result Comment: PERF ORMED BY: [place] [id number] PATHOLOGIST RN PLASTICS SIMEON BIGGS M.D. Performed By: #### B MP #### [place] [address] [place] GFR/1.73 sq M.predicted MDRD (S/P/Bld) [Vol rate/Area] mL/min/{1.73_m2} Normal [facility] Comment on above: Performed By: #### B MP #### [place] [address] [place] Calcium [Mass/volume] in Ser um or PlasmaOrdered By: Melvin Ruano on 05-16-2024 Calcium [Mass/Vol] 8.8 mg/dL Normal 8.6-10.3 [facility] Comment on above: Performed By: #### B MP #### [address] Capillary blood glucose jaswinder urement by glucometer (mass/volume)Ordered By: Pato Koehler on 05-16-2024 Glucose [Mass/Vol] 106 mg/dL Normal [facility] Comment on above: Random Glucose Refer ence Range is dependent on time and content of last meal. Glucose of more than 200 mg/dL in a nonstressed, ambulatory subject supports the diagnosis of Diabetes Mellitus. Result Comment: Cook Glucose Reference Range is dependent on time and content of last meal. Glucose of more than 200 mg/dL in a nonstressed, ambulatory subject supports the diagnosis of Diabetes Mellitus. Performed By: #### G LULS #### Point of Care testing , Carbon dioxide, total [Moles /volume] in Serum or PlasmaOrdered By: Melvin Ruano on 05-16-2024 CO2 [Moles/Vol] 27.3 mmol/L Normal 21.0-31.0 [facility] Comment on above: Performed By: #### B MP #### [address] Chloride [Moles/volume] in S nikkie or PlasmaOrdered By: Melvin Ruano on 05-16-2024 Chloride [Moles/Vol] 105 mmol/L Normal 98-107 [facility] Comment on above: Performed By: #### B MP #### [address] Creatinine [Mass/volume] in Serum or PlasmaOrdered By: Melvin Ruano on 05-16-2024 Creatinine [Mass/Vol] 0.66 mg/dL Normal 0.60-1.20 [facility] Comment on above: Performed By: #### B MP #### [address] Glucose Poct Glucometerson 0 05-16-2024 Commemt1 Glu2: Cleaned Meter Normal [facility] Comment on above: Result Comment: PERF ORMED BY: [place] [id number] PATHOLOGIST RN PLASTICS SIMEON BIGGS M.D. Performed By: #### G BARAK #### Point of Care testing , Glucose [Mass/volume] in Ser um or PlasmaOrdered By: Melvin Ruano on 05-16-2024 Glucose [Mass/Vol] 107 mg/dL High 70-100 [facility] Comment on above: ADA recommended refe rence rangeRandom Glucose Reference Range is dependent on time and content of last meal. Glucose of more than 200 mg/dL in a nonstressed, ambulatory subject supports the diagnosis of Diabetes Mellitus. Result Comment: Cook om Glucose Reference Range is dependent on time and content of last meal. Glucose of more than 200 mg/dL in a nonstressed, ambulatory subject supports the diagnosis of Diabetes Mellitus. ADA recommended reference range Performed By: #### B MP #### [address] [place] [address] [facility] HCG ( test) IA.rapi d Ql (U)Ordered By: Melvin Ruano on 05-16-2024 HCG ( test) Ql (U) Negative [facility] HCG,Urineon 05-16-2024 Beta HCG ( test) Ql (U) Negative Normal [facility] Comment on above: Result Comment: PERF ORMED BY: [place] [id number] PATHOLOGIST RN PLASTICS SIMEON BIGGS M.D. Performed By: #### U HCG #### [facility] [address] [id number] [facility] Jason 05-16-2024 L Specimen: [id number] Received: 05/16/24 Status: KESHA Romo Num: [id number] Spec Type: Surgical Subm Dr: Pato Koehler DPM Tissues: A Bone Fragments - Other than Path Fracture (ACCESSORY BONE LT FOOT) Procedures: HE, Gross/Micro L3, Decalcification Age/ Patient Sex Location Account Attending Physician Kyung Paul 33/F [place] [id number] Pato Koehler DPM SPEC NUM: [id number] RECD: 05/16/24 STATUS: KESHA ROMO NUM: [id number] BRUNO: 05/16/24- SUBM DR: Pato Koehler DPM ENTERED: 05/16/24-[address] [facility] [address]: SPEC TYPE: Surgical DEPT: S ORDERED: [...] areas of necrosis or cysts are present. Employment Appeals Examiner sections are submitted following decalcification in A1. CPT Codes 84427, 22022 Specimen: [id number] Received: 05/16/24 Status: KESHA Romo Num: [id number] Spec Type: Surgical Subm Dr: Pato Koehler DPM Tissues: A Bone Fragments - Other than Path Fracture (ACCESSORY BONE LT FOOT) Procedures: NICOLE, Gross/Micro L3, Decalcification Patient: Kyung Paul [id number] (Continued) Signed (signature on file) Tabatha Dupree MD 05/19/24 1640 Normal [facility] No Panel InformationOrdered By: Pato Koehler on 05-16-2024 Bedside Glucose Comment Glu2: cleaned meter [facility] No Panel InformationOrdered By: Melvin Ruano on 05-16-2024 Estimated GFR (CKD-EPI) > 60.0 mL/Min [facility] Creatinine Clearance (Chem 161.75 [facility] Potassium [Moles/volume] in Serum or PlasmaOrdered By: Melvin Ruano on 05-16-2024 Potassium [Moles/Vol] 3.8 mmol/L Normal 3.5-5.1 [facility] Comment on above: Performed By: #### B MP #### [address] Serum or plasma anion gap de terminationOrdered By: Melvin Ruano on 05-16-2024 Anion gap [Moles/Vol] 9.5 mmol/L Normal 6.0-15.0 [facility] Comment on above: Performed By: #### B MP #### [place] [address] [place] Sodium [Moles/volume] in Ser um or PlasmaOrdered By: Melvin Ruano on 05-16-2024 Sodium [Moles/Vol] 138 mmol/L Normal 136-145 [facility] Comment on above: Performed By: #### B MP #### [place] [address] [place] Urea nitrogen [Mass/volume] in Serum or PlasmaOrdered By: Melvin Ruano on 05-16-2024 Urea nitrogen [Mass/Vol] 17 mg/dL Normal 7-25 [facility] Comment on above: Performed By: #### B MP #### [place] [address] [place] XR foot LT 2Von 05-16-2024 XR foot LT 2V [facility] [address] [place] [address] XRay Report Signed Patient: Kyung Paul MR#: [id number] : 1990 Acct:[id number] Age/Sex: 33 / F ADM Date: 05/16/24 Loc: [place] Room: Type: [facility] Attending Dr: Pato Koehler DPM [...] Leisa Adames M.D.05/16/2024 3:20 PM Dictation Location: [place] [address] Transcribed By: [facility] 05/16/24 1520 Dictated By: Leisa Adames MD 05/16/24 1515 Signed By: 05/16/24 1520 Normal [facility] CBC w/ Auto Diffon 4 Basophils/100 WBC (Bld) 0.5 % Normal 0.0-2.0 [facility] Comment on above: Performed By: #### 2 [id number] #### [facility] Laboratory [address] [place] [address] Basophils/Leukocytes Auto (Bld) [Pure # fraction] 0.1 E9/L Normal 0.0-0.2 [facility] Comment on above: Performed By: #### 2 [id number] #### [facility] [address] [place] [address] Eosinophils (Bld) [#/Vol] 0.3 E9/L Normal 0.0-0.5 [facility] Comment on above: Performed By: #### 2 [id number] #### [facility] [address] [place] [address] Eosinophils/100 WBC (Bld) 2.9 % Normal 0.0-8.0 [facility] Comment on above: Performed By: #### 2 [id number] #### [facility] [address] [place] [address] Erythrocyte distribution width (RBC) [Ratio] 15.6 % High 10.9-14.2 [facility] Comment on above: Performed By: #### 2 [id number] #### [facility] [address] [place] [address] Hematocrit (Bld) [Volume fraction] 39.9 % Normal 34.0-46.0 [facility] Comment on above: Performed By: #### 2 [id number] #### [facility] [address] [place] [address] Hemoglobin (Bld) [Mass/Vol] 12.8 g/dL Normal 12.0-16.0 [facility] Comment on above: Performed By: #### 2 [id number] #### [facility] [address] [place] [address] Lymphocytes (Bld) [#/Vol] 2.3 E9/L Normal 1.0-4.0 [facility] Comment on above: Performed By: #### 2 [id number] #### [facility] [address] [place] [address] Lymphocytes/100 WBC (Bld) 20.9 % Normal 14.0-50.0 [facility] Comment on above: Performed By: #### 2 [id number] #### [facility] [address] [place] [address] MCH (RBC) [Entitic mass] 25.4 pg Low 27.0-34.0 [facility] Comment on above: Performed By: #### 2 [id number] #### [facility] [address] [place] [address] MCHC (RBC) [Mass/Vol] 32.2 g/dL Normal 31.4-36.0 [facility] Comment on above: Performed By: #### 2 [id number] #### [facility] [address] [place] [address] MCV (RBC) [Entitic vol] 79.0 fL Low 80.0-100.0 [facility] Comment on above: Performed By: #### 2 [id number] #### [facility] [address] [place] [address] Monocytes (Bld) [#/Vol] 0.7 E9/L Normal 0.2-1.0 [facility] Comment on above: Performed By: #### 2 [id number] #### [facility] Laboratory [address] [place] [address] Neutrophils (Bld) [#/Vol] 7.7 E9/L High 2.0-7.5 [facility] Comment on above: Performed By: #### 2 [id number] #### [facility] [address] [place] [address] Neutrophils/100 WBC (Bld) 69.3 % Normal 36.0-75.0 [facility] Comment on above: Performed By: #### 2 [id number] #### [facility] [address] [place] [address] Platelet mean volume (Bld) [Entitic vol] 8.3 fL Normal 6.4-10.8 [facility] Comment on above: Performed By: #### 2 [id number] #### [facility] [address] [place] [address] Platelets (Bld) [#/Vol] 346.0 E9/L Normal 150.0-500.0 [facility] Comment on above: Performed By: #### 2 [id number] #### [facility] [address] [place] [address] RBC (Bld) [#/Vol] 5.1 E12/L Normal 4.3-5.9 [facility] Comment on above: Performed By: #### 2 [id number] #### [facility] [address] [place] [address] WBC corrected for nucl RBC Auto (Bld) [#/Vol] 11.1 E9/L High 4.0-11.0 [facility] Comment on above: Performed By: #### 2 [id number] #### [facility] [address] [place] [address] Consent for Treatmenton 03-29 Consent for Treatment [id number] #1.00TIFF Normal [facility] HEMATOLOGYOrdered By: SYSTEM SYSTEM on 04-25-2024 Basophils/100 [...] Remisol Heme Physician Orderon 04-18-2024 Physician Order [id number] #1.00TIFF Normal [facility] XR shoulder RT min 2V*on XR shoulder RT min 2V* [facility] [address] XRay Report Signed Patient: Kyung Paul MR#: [id number] : 1990 Acct:[id number] Age/Sex: 33 / F ADM Date: 02/27/24 Loc: XDUCLY Room: Type: [facility] Attending Dr: Monique SANDOVAL Copies to: [...] Leisa Adames M.D.02/27/2024 6:14 PM Dictation Location: [place] [address] Transcribed By: [facility] 02/27/241813 Dictated By: Leisa Adames MD 02/27/241812 Signed By: 02/27/241813 Normal [facility] GLYCOHEMOGLOBIN A1Con 2022 ADA RECOMMENDATION SEE BELOW Normal [facility] Comment on above: Result Comment: ADA RECOMMENDED LIMIT 4.0 - 6.0 ADA THERAPEUTIC TARGET < 7.0 ACTION SUGGESTED > 7.0 Performed By: #### A 1C #### [facility] Laboratory [address] [place] [address] Dr. Benito Dupree Glucose [Mass/Vol] 105 mg/dL Normal [facility] Comment on above: Performed By: #### A 1C #### [facility] Laboratory [address] [place] [address] [address] Benito Dupree HbA1c (Bld) [Mass fraction] 5.3 % Normal 4.5-6.2 [facility] Comment on above: Performed By: #### A 1C #### [facility] [address] [place] [address] Dr. Benito Dupree Covid-19 PCR ([facility]on SARS-CoV-2 (COVID-19) RNA MUKUND+probe Ql (Unsp spec) Not detected Normal NOT DETECTED [facility] Comment on above: Result Comment: This test is not yet approved or cleared by the [place] FDA. When there are no FDA-approved or cleared tests available, and other criteria are met, FDA can make tests available under an emergency access mechanism called an Emergency Use Authorization (EUA). The EUA for this test is supported by the [place] of Health and Human Service's (HHS's) declaration [...] By: #### C VDTBH #### [facility] [address] [place] [address] Dr. Benito Dupree INFLUENZA A AND B AGon 01-05 INFLUANEGH SEE BELOW Normal [facility] Comment on above: Result Comment: Nega tive for Flu A protein angiten. Infection due to Flu A cannot be ruled out. Flu A angiten in the sample may be below the detection limit of the test. Performed By: #### I NFLUAB #### [facility] [address] [place] [address] Dr. Benito Dupree INFLUBNEGH SEE BELOW Normal [facility] Comment on above: Result Comment: Nega tive for Flu B protein antigen. Infection due to Flu B cannot be ruled out. Flu B antigen in the sample may be below the detection limit of the test. Performed By: #### I NFLUAB #### [facility] [address] [place] [address] Dr. Benito Dupree INFLUENZA A AG Negative Normal NEGATIVE SEE COMMENT [facility] Comment on above: Performed By: #### I NFLUAB #### [facility] [address] [place] [address] Dr. Benito Dupree INFLUENZA B AG Negative Normal NEGATIVE SEE COMMENT [facility] Comment on above: Performed By: #### I NFLUAB #### [facility] [address] [place] [address] Dr. Benito Dupree GLYCOHEMOGLOBIN A1Con 2021 ADA RECOMMENDATION SEE BELOW Normal [facility] Comment on above: Result Comment: ADA RECOMMENDED LIMIT 4.0 - 6.0 ADA THERAPEUTIC TARGET < 7.0 ACTION SUGGESTED > 7.0 Performed By: #### A 1C #### [facility] [address] [place], [place] [address] Dr. Benito Dupree Glucose [Mass/Vol] 143 mg/dL Normal [facility] Comment on above: Performed By: #### A 1C #### [facility] [address] [place] [address] [address] Benito Dupree HbA1c (Bld) [Mass fraction] 6.6 % Critically high 4.5-6.2 [facility] Comment on above: Performed By: #### A 1C #### [facility] [address] [place] [address] [address] Benito Dupree LIPID PROFILEon 11-15-2022 CHOL-HDL RATIO NORM SEE BELOW Normal [facility] Comment on above: Result Comment: 3.3 - 4.4 LOW RISK 4.4 - 7.1 AVERAGE RISK 7.1 - 11.0 MODERATE RISK >11.0 HIGH RISK Performed By: #### I NFLUAB #### [facility] [address] [place] [address] Dr. Benito Dupree Cholesterol [Mass/Vol] 154 mg/dL Normal <=200 [facility] Comment on above: Performed By: #### I NFLUAB #### [facility] [address] [place] [address] [address] Benito Dupree Cholesterol in HDL [Mass/Vol] 29 mg/dL Critically low 40-60 [facility] Comment on above: Performed By: #### I NFLUAB #### [facility] [address] [place] [address] [address] Benito Dupree Cholesterol in LDL [Mass/Vol] 98.2 mg/dL Normal [facility] Comment on above: Performed By: #### I NFLUAB #### [facility] [address] [place] [address] [address] Benito Dupree Cholesterol.total/Lisandra sterol in HDL [Mass ratio] 5.3 {ratio} Normal [facility] Comment on above: Performed By: #### I NFLUAB #### [facility] [address] [place] [address] Dr. Benito Dupree HDL NORMAL > or = 60 mg/dl - LOW CARDIOVASCULAR RISK <40 mg/dl - HIGH CARDIOVASCULAR RISK Normal [facility] Comment on above: Performed By: #### I NFLUAB #### [facility] [address] [place] [address] [address] Benito Dupree LDL CALC NORMAL SEE BELOW Normal [facility] Comment on above: Result Comment: <100 mg/dl OPTIMAL 100 - 129 mg/dl NEAR OR ABOVE OPTIMAL 130 - 159 mg/dl BORDERLINE HIGH 160 - 189 mg/dl HIGH >190 mg/dl VERY HIGH Performed By: #### I NFLUAB #### [facility] [address] [place] [address] Dr. Benito Dupree Triglyceride [Mass/Vol] 134 mg/dL Normal <=150 [facility] Comment on above: Performed By: #### I NFLUAB #### [facility] [address] [place] [address] Dr. Benito Dupree VLDL CALC 26.8 mg/dL Normal [facility] Comment on above: Performed By: #### I NFLUAB #### [facility] [address] [place] [address] [address] Benito Dupree INSULINon 08-19-2022 Insulin 24.3 uIU/mL Normal 2.6-24.9 [facility] Comment on above: Performed By: #### I NFLUAB #### [facility] [address] [place] [address] Dr. Benito Dupree T4, T3U, FTI LABCORPon 08-19 Free Thyroxine Index 2.6 Normal 1.2-4.9 [facility] Comment on above: Performed By: #### T HYLC #### [facility] [address] [place] [address] Dr. Benito Dupree T3 Uptake 29 % Normal 24-39 [facility] Comment on above: Performed By: #### T HYLC #### [facility] [address] [place] [address] Dr. Benito Dupree T4 [Mass/Vol] 8.8 ug/dL Normal 4.5-12.0 [facility] Comment on above: Performed By: #### T HYLC #### [facility] [address] [place] [address] Dr. Benito Dupree CBC AUTO DIFFon 08-18-2022 BASO # 0.1 103/ul Normal 0.0-0.1 [facility] Comment on above: Performed By: #### I NFLUAB #### [facility] [address] [place] [address] Dr. Benito Dupree Basophils/100 WBC (Bld) 0.8 % Normal 0.2-2.0 [facility] Comment on above: Performed By: #### I NFLUAB #### [facility] [address] [place] [address] Dr. Benito Dupree EO # 0.3 103/ul Normal 0.0-0.7 [facility] Comment on above: Performed By: #### I NFLUAB #### [facility] [address] [place] [address] Dr. Benito Dupree Eosinophils/100 WBC (Bld) 2.8 % Normal 0.9-7.0 [facility] Comment on above: Performed By: #### I NFLUAB #### [facility] [address] [place] [address] Dr. Benito Dupree Erythrocyte distribution width (RBC) [Ratio] 15.4 % Critically high 11.0-15.0 [facility] Comment on above: Performed By: #### I NFLUAB #### [facility] [address] [place] [address] Dr. Benito Dupree Hematocrit (Bld) [Volume fraction] 43.7 % Normal 36.0-48.0 [facility] Comment on above: Performed By: #### I NFLUAB #### [facility] [address] [place] [address] Dr. Benito Dupree Hemoglobin (Bld) [Mass/Vol] 14.2 g/dL Normal 12.0-16.0 [facility] Comment on above: Performed By: #### I NFLUAB #### [facility] [address] [place] [address] Dr. Benito Dupree IG # 0.08 10e3/ul Critically high 0.00-0.03 [facility] Comment on above: Performed By: #### I NFLUAB #### [facility] [address] [place] [address] [address] Benito Dupree IG % 0.9 % Critically high 0.0-0.5 [facility] Comment on above: Performed By: #### I NFLUAB #### [facility] [address] [place] [address] [address] Benito Dupree LYMPH # 2.3 103/ul Normal 1.2-3.8 [facility] Comment on above: Performed By: #### I NFLUAB #### [facility] [address] [place] [address] [address] Benito Dupree Lymphocytes/100 WBC (Bld) 24.3 % Normal 20.5-60.0 [facility] Comment on above: Performed By: #### I NFLUAB #### [facility] [facility] [address] [address] [address] Benito Dupree MANUAL DIFF REQ NO Normal [facility] Comment on above: Performed By: #### I NFLUAB #### [facility] [address] [address] [address] Benito Dupree MCH (RBC) [Entitic mass] 26.1 pg Critically low 26.7-34.0 [facility] Comment on above: Performed By: #### I NFLUAB #### [facility] [address] [address] [address] Benito Dupree MCHC (RBC) [Mass/Vol] 32.5 g/dL Normal 29.9-35.2 [facility] Comment on above: Performed By: #### I NFLUAB #### [facility] [address] [address] [address] Benito Dupree MCV (RBC) [Entitic vol] 80.2 fL Critically low 81.0-99. 0 [facility] Comment on above: Performed By: #### I NFLUAB #### [facility] [address] [address] [address] Benito Dupree MONO # 0.5 103/ul Normal 0.3-0.8 [facility] Comment on above: Performed By: #### I NFLUAB #### [facility] [address] [place] [address] Dr. Benito Dupree Monocytes/100 WBC (Bld) 5.2 % Normal 1.7-12.0 [facility] Comment on above: Performed By: #### I NFLUAB #### [facility] [address] [place] [address] Dr. Benito Dupree NEUT # 6.1 103/ul Normal 1.4-6.5 [facility] Comment on above: Performed By: #### I NFLUAB #### [facility] [address] [place] [address] Dr. Benito Dupree Neutrophils/100 WBC (Bld) 66.0 % Normal 43.0-75.0 [facility] Comment on above: Performed By: #### I NFLUAB #### [facility] [address] [place] [address] Dr. Benito Dupree Platelet mean volume (Bld) [Entitic vol] 9.9 fL Normal 9.5-13.5 [facility] Comment on above: Performed By: #### I NFLUAB #### [facility] [address] [place] [address] Dr. Benito Dupree PLT 291 103/ul Normal 150-450 [facility] Comment on above: Performed By: #### I NFLUAB #### [facility] [address] [place] [address] Dr. Benito Dupree RBC 5.45 106/ul Critically high 4.20-5.40 [facility] Comment on above: Performed By: #### I NFLUAB #### [facility] [address] [place] [address] Dr. Benito Dupree WBC 9.3 103/ul Normal 4.0-11.0 [facility] Comment on above: Performed By: #### I NFLUAB #### [facility] [address] [place] [address] Dr. Benito Dupree DIRECT LDLon 08-18-2022 Cholesterol in LDL [Mass/Vol] 50 mg/dL Normal [facility] Comment on above: Performed By: #### T HYLC #### [facility] [address] [address] [address] Benito Dupree DLDL NORMAL SEE BELOW Normal [facility] Comment on above: Result Comment: <100 mg/dl OPTIMAL 100 - 129 mg/dl NEAR OR ABOVE OPTIMAL 130 - 159 mg/dl BORDERLINE HIGH 160 - 189 mg/dl HIGH >190 mg/dl VERY HIGH Performed By: #### T HYLC #### [facility] [address] [address] [address] Benito Dupree GLYCOHEMOGLOBIN A1Con 2021 ADA RECOMMENDATION SEE BELOW Normal [facility] Comment on above: Result Comment: ADA RECOMMENDED LIMIT 4.0 - 6.0 ADA THERAPEUTIC TARGET < 7.0 ACTION SUGGESTED > 7.0 Performed By: #### A 1C #### [facility] [address] [address] [address] Benito Dupree Glucose [Mass/Vol] 332 mg/dL Normal [facility] Comment on above: Performed By: #### A 1C #### [facility] [address] [address] [address] Benito Dupree HbA1c (Bld) [Mass fraction] 13.2 % Critically high 4.5-6.2 [facility] Comment on above: Performed By: #### A 1C #### [facility] [address] [address] [address] Benito Dupree IRONon 08-18-2022 Iron [Mass/Vol] 53.0 ug/dL Normal 50.0-170.0 [facility] Comment on above: Performed By: #### I NFLUAB #### [facility] [address] [address] [address] Benito Dupree LIPID PROFILEon 08-18-2022 CHOL-HDL RATIO NORM SEE BELOW Normal [facility] Comment on above: Result Comment: 3.3 - 4.4 LOW RISK 4.4 - 7.1 AVERAGE RISK 7.1 - 11.0 MODERATE RISK >11.0 HIGH RISK Performed By: #### T HYLC #### [facility] [address] [address] [address] Benito Dupree Cholesterol [Mass/Vol] 260 mg/dL Critically high <=200 [facility] Comment on above: Performed By: #### T HYLC #### [facility] [address] [address] [address] Benito Dupree Cholesterol in HDL [Mass/Vol] 23 mg/dL Critically low 40-60 [facility] Comment on above: Performed By: #### T HYLC #### [facility] [address] [address] [address] Benito Dupree Cholesterol.total/Lisandra sterol in HDL [Mass ratio] 11.3 {ratio} Normal [facility] Comment on above: Performed By: #### T HYLC #### [facility] [address] [address] [address] Benito Dupree HDL NORMAL > or = 60 mg/dl - LOW CARDIOVASCULAR RISK <40 mg/dl - HIGH CARDIOVASCULAR RISK Normal [facility] Comment on above: Performed By: #### T HYLC #### [facility] [address] [address] [address] Benito Dupree Triglyceride [Mass/Vol] 1711 mg/dL Critically high <=150 [facility] Comment on above: Performed By: #### T HYLC #### [facility] [address] [address] [address] Benito Dupree VLDL CALC 342.2 mg/dL Normal [facility] Comment on above: Performed By: #### T HYLC #### [facility] [address] [address] [address] Bentio Dupree PROF 14(COMP METB)on 022 Albumin [Mass/Vol] 3.2 g/dL Critically low 3.4-5.0 [facility] Comment on above: Performed By: #### T HYLC #### [facility] [address] [address] [address] Benito Dupree Albumin/Globulin [Mass ratio] 0.7 {ratio} Normal [facility] Comment on above: Performed By: #### T HYLC #### [facility] [address] [address] [address] Benito Dupree ALP [Catalytic activity/Vol] 92 U/L Normal 46-116 [facility] Comment on above: Performed By: #### T HYLC #### [facility] [address] [place] [address] Dr. Benito Dupree ALT [Catalytic activity/Vol] 41 U/L Normal 14-59 [facility] Comment on above: Performed By: #### T HYLC #### [facility] [address] [place] [address] Dr. Benito Dupree Anion gap [Moles/Vol] 14.1 mmol/L Normal [facility] Comment on above: Performed By: #### T HYLC #### [facility] [address] [place] [address] Dr. Benito Dupree AST [Catalytic activity/Vol] 16 U/L Normal 15-37 [facility] Comment on above: Performed By: #### T HYLC #### [facility] [address] [place] [address] Dr. Benito Dupree Bilirubin [Mass/Vol] 0.9 mg/dL Normal 0.2-1.0 [facility] Comment on above: Performed By: #### T HYLC #### [facility] [address] [place] [address] Dr. Benito Dupree Calcium [Mass/Vol] 9.1 mg/dL Normal 8.5-10.1 [facility] Comment on above: Performed By: #### T HYLC #### [facility] [address] [place] [address] Dr. Benito Dupree Chloride [Moles/Vol] 97 mmol/L Critically low 98-107 [facility] Comment on above: Performed By: #### T HYLC #### [facility] [address] [place] [address] Dr. Benito Dupree CO2 [Moles/Vol] 24.9 mmol/L Normal 21.0-32.0 [facility] Comment on above: Performed By: #### T HYLC #### [facility] [address] [place] [address] Dr. Benito Dupree Creatinine [Mass/Vol] 0.67 mg/dL Normal 0.55-1.02 [facility] Comment on above: Performed By: #### T HYLC #### [facility] [address] [address] [address] Benito Dupree EGFR-AF ISRAELI >60 Normal >=60 [facility] Comment on above: Performed By: #### T HYLC #### [facility] [address] [address] [address] Benito Dupree EGFR-NON AF ISRAELI >60 Normal >=60 [facility] Comment on above: Performed By: #### T HYLC #### [facility] [address] [address] [address] Benito Dupree Globulin (S) [Mass/Vol] 4.6 g/dL Normal [facility] [place] Comment on above: Performed By: #### T HYLC #### [facility] [address] [address] [address] Benito Dupree Glucose [Mass/Vol] 402 mg/dL Critically high 74-106 [facility] Comment on above: Performed By: #### T HYLC #### [facility] [address] [address] [address] Benito Dupree Potassium [Moles/Vol] 4.0 mmol/L Normal 3.5-5.1 [facility] Comment on above: Performed By: #### T HYLC #### [facility] [address] [address] [address] Benito Dupree Protein [Mass/Vol] 7.8 g/dL Normal 6.4-8.2 [facility] Comment on above: Performed By: #### T HYLC #### [facility] [address] [address] [address] Benito Dupree Sodium [Moles/Vol] 132 mmol/L Critically low 136-145 [facility] Comment on above: Performed By: #### T HYLC #### [facility] [address] [address] [address] Benito Dupree Urea nitrogen [Mass/Vol] 10.0 mg/dL Normal 7.0-18.0 [facility] Comment on above: Performed By: #### T HYLC #### [facility] [address] [place] [address] Dr. Benito Dupree Urea nitrogen/Creatinine [Mass ratio] 14.9 mg/mg Normal [facility] Comment on above: Performed By: #### T HYLC #### [facility] [address] [place] [address] Dr. Benito Dupree TSHon 08-18-2022 TSH 3.676 uIU/mL Normal 0.358-3.740 [facility] Comment on above: Performed By: #### T HYLC #### [facility] [address] [place] [address] Dr. Benito Dupree VITAMIN D 25 OHon 08-18-2022 VIT D 25-OH 13.9 ng/mL Normal [facility] Comment on above: Performed By: #### I NFLUAB #### [facility] [address] [place] [address] Dr. Benito Dupree VIT D RANGES SEE BELOW Normal [facility] Comment on above: Result Comment: <20 ng/mL Vit D deficient 20 - <30 ng/mL Vit D insufficient 30 - 100 ng/mL Vit D sufficient >100 ng/mL Potential Toxicity Performed By: #### I NFLUAB #### [facility] [address] [place] [address] Dr. Benito Dupree AMYLASEon 06-01-2022 Amylase [Catalytic activity/Vol] 29 U/L Normal 25-115 [facility] Comment on above: Performed By: #### I NFLUAB #### [facility] [address] [place] [address] Dr. Benito Dupree CBC AUTO DIFFon 06-01-2022 BASO # 0.1 103/ul Normal 0.0-0.1 [facility] Comment on above: Performed By: #### I NFLUAB #### [facility] [address] [place] [address] Dr. Benito Dupree Basophils/100 WBC (Bld) 0.5 % Normal 0.2-2.0 [facility] Comment on above: Performed By: #### I NFLUAB #### [facility] [address] [place] [address] Dr. Benito Dupree EO # 0.3 103/ul Normal 0.0-0.7 [facility] Comment on above: Performed By: #### I NFLUAB #### [facility] [address] [place] [address] Dr. Benito Dupree Eosinophils/100 WBC (Bld) 2.0 % Normal 0.9-7.0 [facility] Comment on above: Performed By: #### I NFLUAB #### [facility] [address] [place] [address] Dr. Benito Dupree Erythrocyte distribution width (RBC) [Ratio] 15.3 % Critically high 11.0-15.0 [facility] Comment on above: Performed By: #### I NFLUAB #### [facility] [address] [place] [address] Dr. Benito Dupree Hematocrit (Bld) [Volume fraction] 41.5 % Normal 36.0-48.0 [facility] Comment on above: Performed By: #### I NFLUAB #### [facility] [address] [place] [address] Dr. Benito Dupree Hemoglobin (Bld) [Mass/Vol] 12.7 g/dL Normal 12.0-16.0 [facility] Comment on above: Performed By: #### I NFLUAB #### [facility] [address] [place] [address] Dr. Benito Dupree IG # 0.06 10e3/ul Critically high 0.00-0.03 [facility] Comment on above: Performed By: #### I NFLUAB #### [facility] [address] [place] [address] Dr. Benito Dupree IG % 0.4 % Normal 0.0-0.5 [facility] Comment on above: Performed By: #### I NFLUAB #### [facility] [address] [place] [address] Dr. Benito Dupree LYMPH # 1.9 103/ul Normal 1.2-3.8 [facility] Comment on above: Performed By: #### I NFLUAB #### [facility] [address] [place] [address] Dr. Benito Dupree Lymphocytes/100 WBC (Bld) 13.9 % Critically low 20.5-60.0 [facility] Comment on above: Performed By: #### I NFLUAB #### [facility] [address] [place] [address] Dr. eBnito Dupree MANUAL DIFF REQ NO Normal [facility] Comment on above: Performed By: #### I NFLUAB #### [facility] [address] [place] [address] Dr. Benito Dupree MCH (RBC) [Entitic mass] 24.7 pg Critically low 26.7-34.0 [facility] Comment on above: Performed By: #### I NFLUAB #### [facility] [address] [place] [address] Dr. Benito Dupree MCHC (RBC) [Mass/Vol] 30.6 g/dL Normal 29.9-35.2 [facility] Comment on above: Performed By: #### I NFLUAB #### [facility] [address] [place] [address] Dr. Benito Dupree MCV (RBC) [Entitic vol] 80.6 fL Critically low 81.0-99. 0 [facility] Comment on above: Performed By: #### I NFLUAB #### [facility] [address] [place] [address] Dr. Benito Dupree MONO # 0.5 103/ul Normal 0.3-0.8 [facility] Comment on above: Performed By: #### I NFLUAB #### [facility] [address] [place] [address] Dr. Benito Dupree Monocytes/100 WBC (Bld) 4.0 % Normal 1.7-12.0 [facility] Comment on above: Performed By: #### I NFLUAB #### [facility] [address] [place], [place] [id number] Dr. Benito Dupree NEUT # 10.6 103/ul Critically high 1.4-6.5 [facility] Comment on above: Performed By: #### I NFLUAB #### [facility] [address] [place] [address] Dr. Benito Dupree Neutrophils/100 WBC (Bld) 79.2 % Critically high 43.0-75.0 [facility] Comment on above: Performed By: #### I NFLUAB #### [facility] [address] [place] [address] Dr. Benito Dupree Platelet mean volume (Bld) [Entitic vol] 9.3 fL Critically low 9.5-13.5 [facility] Comment on above: Performed By: #### I NFLUAB #### [facility] [address] [place] [address] Dr. Benito Dupree PLT 391 103/ul Normal 150-450 [facility] Comment on above: Performed By: #### I NFLUAB #### [facility] [address] [place] [address] Dr. Benito Dupree RBC 5.15 106/ul Normal 4.20-5.40 [facility] Comment on above: Performed By: #### I NFLUAB #### [facility] [address] [place] [address] Dr. Benito Dupree WBC 13.4 103/ul Critically high 4.0-11.0 [facility] Comment on above: Performed By: #### I NFLUAB #### [facility] [address] [place] [address] ABD/PELV W CONon [...] Date: 2022-06-01 14:59 Normal [facility] ER URINE PROFILEon 2 Bilirubin Ql (U) Negative Normal NEGATIVE [facility] Comment on above: Performed By: #### U MICRO, ERUR #### [facility] [address] [place] [address] Dr. Benito Dupree Clarity (U) SL CLOUDY Abnormal CLEAR [facility] Comment on above: Performed By: #### U MICRO, ERUR #### [facility] [address] [address] [address] Benito Dupree Color (U) YELLOW Normal YELLOW [facility] Comment on above: Performed By: #### U MICRO, ERUR #### [facility] [address] [address] [address] Benito Dupree ERUAHD A micrscopic examination will be performed if indicated. Normal [facility] Comment on above: Performed By: #### U MICRO, ERUR #### [facility] [address] [address] [address] Benito Dupree Glucose Ql (U) Negative Normal NEGATIVE [facility] Comment on above: Performed By: #### U MICRO, ERUR #### [facility] [address] [address] [address] Benito Dupree Hemoglobin Ql (U) LARGE Abnormal NEGATIVE [facility] Comment on above: Performed By: #### U MICRO, ERUR #### [facility] [address] [place] [address] Dr. Benito Dupree Ketones Ql (U) Negative Normal NEGATIVE [facility] Comment on above: Performed By: #### U MICRO, ERUR #### [facility] [address] [address] [address] Benito Dupree LEUKOCYTES Negative Normal NEGATIVE [facility] Comment on above: Performed By: #### U MICRO, ERUR #### [facility] [address] [address] [address] Benito Dupree Nitrite Ql (U) Negative Normal NEGATIVE [facility] Comment on above: Performed By: #### U MICRO, ERUR #### [facility] [address] [place] [address] Dr. Benito Dupree pH (U) 5.5 [pH] Normal 5-9 [facility] Comment on above: Performed By: #### U MICRO, ERUR #### [facility] [address] [place] [address] Dr. Benito Dupree SPEC GRAVITY 1.010 Normal 1.005-<=1.02 5 [facility] Comment on above: Performed By: #### U MICRO, ERUR #### [facility] [address] [place] [address] Dr. Benito Dupree UA PROTEIN TRACE Normal NEGATIVE/ TRACE [facility] Comment on above: Performed By: #### U MICRO, ERUR #### [facility] [address] [place] [address] Dr. Benito Dupree UR MICRO IND INDICATED Normal [facility] Comment on above: Performed By: #### U MICRO, ERUR #### [facility] [address] [place] [address] Dr. Benito Dupree Urobilinogen Qn (U) 1.0 {Tuyet'U}/dL Normal 0.2 - 1. 0 [facility] Comment on above: Performed By: #### U MICRO, ERUR #### [facility] [address] [place] [address] Dr. Benito Dupree LACTATE/LACTIC ACIDon 2021 Lactate [Moles/Vol] 1.1 mmol/L Normal 0.4-1.9 [facility] Comment on above: Performed By: #### L ACT #### [facility] [address] [place] [address] Dr. Benito Dupree LIPASEon 06-01-2022 Lipase [Catalytic activity/Vol] 111.0 U/L Normal 73.0-393.0 [facility] Comment on above: Performed By: #### I NFLUAB #### [facility] [address] [address] [address] Benito Dupree PREG HCG QUALon 06-01-2022 , QUAL Negative Normal NEGATIVE [facility] Comment on above: Performed By: #### P REG #### [facility] [address] [place] [address] Dr. Benito Dupree PROF 14(COMP METB)on 022 Albumin [Mass/Vol] 3.6 g/dL Normal 3.4-5.0 [facility] Comment on above: Performed By: #### I NFLUAB #### [facility] [address] [place] [address] Dr. Benito Dupree Albumin/Globulin [Mass ratio] 0.7 {ratio} Normal [facility] Comment on above: Performed By: #### I NFLUAB #### [facility] [address] [place] [address] Dr. Benito Dupree ALP [Catalytic activity/Vol] 90 U/L Normal 46-116 [facility] Comment on above: Performed By: #### I NFLUAB #### [facility] [address] [place] [address] Dr. Benito Dupree ALT [Catalytic activity/Vol] 39 U/L Normal 14-59 [facility] Comment on above: Performed By: #### I NFLUAB #### [facility] [address] [place] [address] Dr. Benito Dupree Anion gap [Moles/Vol] 13.0 mmol/L Normal Th [facility] Comment on above: Performed By: #### I NFLUAB #### [facility] [address] [address] [address] Benito Dupree AST [Catalytic activity/Vol] 25 U/L Normal 15-37 [facility] Comment on above: Performed By: #### I NFLUAB #### [facility] [address] [place] [address] Dr. Benito Dupree Bilirubin [Mass/Vol] 1.1 mg/dL Critically high 0.2-1.0 [facility] Comment on above: Performed By: #### I NFLUAB #### [facility] [address] [place] [address] Dr. Benito Dupree Calcium [Mass/Vol] 9.4 mg/dL Normal 8.5-10.1 [facility] Comment on above: Performed By: #### I NFLUAB #### [facility] [address] [place] [address] Dr. Benito Dupree Chloride [Moles/Vol] 99 mmol/L Normal 98-107 [facility] Comment on above: Performed By: #### I NFLUAB #### [facility] [address] [place] [address] Dr. Benito Dupree CO2 [Moles/Vol] 27.3 mmol/L Normal 21.0-32.0 [facility] Comment on above: Performed By: #### I NFLUAB #### [facility] [address] [place] [address] Dr. Benito Dupree Creatinine [Mass/Vol] 0.87 mg/dL Normal 0.55-1.02 [facility] Comment on above: Performed By: #### I NFLUAB #### [facility] [address] [place] [address] Dr. Benito Dupree EGFR-AF ISRAELI >60 Normal >=60 [facility] Comment on above: Performed By: #### I NFLUAB #### [facility] [address] [place] [address] Dr. Benito Dupree EGFR-NON AF ISRAELI >60 Normal >=60 [facility] Comment on above: Performed By: #### I NFLUAB #### [facility] [address] [address] [address] Benito Dupree Globulin (S) [Mass/Vol] 4.8 g/dL Normal [facility] Comment on above: Performed By: #### I NFLUAB #### [facility] [address] [address] [address] Benito Dupree Glucose [Mass/Vol] 218 mg/dL Critically high 74-106 [facility] Comment on above: Performed By: #### I NFLUAB #### [facility] [address] [address] [address] Benito Dupree Potassium [Moles/Vol] 4.1 mmol/L Normal 3.5-5.1 [facility] Comment on above: Performed By: #### I NFLUAB #### [facility] [address] [place] [address] Dr. Benito Dupree Protein [Mass/Vol] 8.4 g/dL Critically high 6.4-8.2 [facility] Comment on above: Performed By: #### I NFLUAB #### [facility] [address] [address] [address] Benito Dupree Sodium [Moles/Vol] 135 mmol/L Critically low 136-145 [facility] Comment on above: Performed By: #### I NFLUAB #### [facility] [address] [place] [address] Dr. Benito Dupree Urea nitrogen [Mass/Vol] 15.0 mg/dL Normal 7.0-18.0 [facility] Comment on above: Performed By: #### I NFLUAB #### [facility] [address] [address] [address] Benito Dupree Urea nitrogen/Creatinine [Mass ratio] 17.2 mg/mg Normal [facility] Comment on above: Performed By: #### I NFLUAB #### [facility] [address] [place] [address] Dr. Benito Dupree URINE MICROSCOPIC ONLYon BACTERIA TRACE Abnormal NONE SEEN [facility] Comment on above: Performed By: #### U MICRO, ERUR #### [facility] [address] [address] [address] Benito Dupree Bacteria identified Cx Nom (U) NOT INDICATED Normal [facility] Comment on above: Performed By: #### U MICRO, ERUR #### [facility] [address] [place] [address] Dr. Benito Dupree CAST NONE SEEN Normal NONE SEEN [facility] Comment on above: Performed By: #### U MICRO, ERUR #### [facility] [address] [address] [address] Benito Dupree Crystals LM Nom (Urine sed) NONE SEEN Normal NONE SEEN [facility] Comment on above: Performed By: #### U MICRO, ERUR #### [facility] [address] [place] [address] Dr. Benito Dupree Epithelial cells LM Ql (Urine sed) MODERATE Abnormal NONE SEEN /RARE [facility] Comment on above: Performed By: #### U MICRO, ERUR #### [facility] [address] [place] [address] Dr. Benito Dupree MUCOUS TRACE Abnormal NONE SEEN [facility] Comment on above: Performed By: #### U MICRO, ERUR #### [facility] [address] [place] [address] Dr. Benito Dupree RBC 2-5 Abnormal 0-2 [facility] Comment on above: Performed By: #### U MICRO, ERUR #### [facility] [address] [place] [address] Dr. Benito Dupree WBC 0-2 Abnormal NONE SEEN [facility] Comment on above: Performed By: #### U MICRO, ERUR #### [facility] [address] [place] [address] Dr. Benito Dupree XR hand RT min 3V*on 022 XR hand RT min 3V* [facility] [employer] (acquired by [employer] in 2014) Other XR hand RT min 3V* [facility] [employer] (acquired by [employer] in 2014) Other XR hand RT min 3V* [address] [facility] [employer] Other XR hand RT min 3V* YOMAIRA Yadav [address] [employer] Other XR hand RT min 3V* XRay Report [employer] Other XR hand RT min 3V* Signed [employer] Other XR hand RT min 3V* Patient: Kyung Paul MR#: [id number] [employer] Other XR hand RT min 3V* : 1990 Acct:[id number] [employer] Other XR hand RT min 3V* Age/Sex: 31 / F ADM Date: 03/22/22 [employer] Other XR hand RT min 3V* Loc: XDUCLY Room: Type: [facility] [employer] Other XR hand RT min 3V* Attending Dr: Monique SANDOVAL [employer] Other XR hand RT min 3V* Ordering Provider: LORI Dias [employer] Other XR hand RT min 3V* Date of Service: 03/22/22 [employer] Other XR hand RT min 3V* XR/XR hand RT min 3V*: Finger pain, right [employer] Other XR hand RT min 3V* Copies to: LORI Dias [employer] Other XR hand RT min 3V* 3 viewsRIGHT hand plain film [employer] Other XR hand RT min 3V* COMPARISON:None [employer] Other XR hand RT min 3V* HISTORY:Fell going upstairs. RIGHT ring finger injury. [employer] Other XR hand RT min 3V* No fracture, dislocation or focal soft tissue abnormality seen. [employer] Other XR hand RT min 3V* XR/XR hand RT min 3V* [employer] Other XR hand RT min 3V* IMPRESSION:No acute findings [employer] Other XR hand RT min 3V* Impression dictated by: Ta Galvan M.D.03/22/2022 4:42 PM [employer] Other XR hand RT min 3V* Dictation Location: [address] [address] [employer] Other XR hand RT min 3V* Transcribed By: [facility] 03/22/22 [facility] [employer] Other XR hand RT min 3V* Dictated By: Ta Galvan DO 03/22/22 [facility] [employer] Other XR hand RT min 3V* Signed By: [employer] Other XR hand RT min 3V* 03/22/[address] [place] [address] [employer] Other Vital Signs Date Time Vital Sign Value Performing Clinician Facility 10-24-2024 14:24-0500 Body height 157.5 cm Pato Koehler DPM Work Phone: [facility] 10-24-2024 14:24-0500 Body mass index (BMI) [Ratio] 56.7 kg/m2 Pato Koehler DPM Work Phone: [facility] 10-24-2024 14:24-0500 Body weight 140.62 kg Pato Koehler DPM Work Phone: [facility] 10-24-2024 14:24-0500 Respiratory rate 18 /min Pato Koehler DPM Work Phone: [facility] 10-04-2024 14:48-0500 Body height 157.5 cm Pato Koehler DPM Work Phone: [facility] 10-04-2024 14:48-0500 Body mass index (BMI) [Ratio] 56.7 kg/m2 Pato Koehler DPM Work Phone: [facility] 10-04-2024 14:48-0500 Body weight 140.62 kg Pato Koehler DPM Work Phone: [facility] 10-04-2024 14:48-0500 Diastolic blood pressure 79 mm[Hg] Pato Koehler DPM Work Phone: [facility] 10-04-2024 14:48-0500 Heart rate 82 /min Pato Koehler DPM Work Phone: [facility] 10-04-2024 14:48-0500 Systolic blood pressure 129 mm[Hg] Pato Koehler DPM Work Phone: [facility] 09-20-2024 14:37-0400 Body height 157.5 cm Pato Koehler DPM Work Phone: [facility] 09-20-2024 14:37-0400 Body mass index (BMI) [Ratio] 56.7 kg/m2 Pato Koehler DPM Work Phone: [facility] 09-20-2024 14:37-0400 Body weight 140.62 kg Pato Koehler DPM Work Phone: [facility] 09-20-2024 14:37-0400 Diastolic blood pressure 77 mm[Hg] Pato Koehler DPM Work Phone: [facility] 09-20-2024 14:37-0400 Heart rate 79 /min Pato Koehler DPM Work Phone: [facility] 09-20-2024 14:37-0400 Systolic blood pressure 126 mm[Hg] Pato Brown DPM Work Phone: [facility] 09-13-2024 14:46-0400 Body height 157.5 cm Pato Brown DPM Work Phone: [facility] 09-13-2024 14:46-0400 Body mass index (BMI) [Ratio] 56.7 kg/m2 Pato Brown DPM Work Phone: [facility] 09-13-2024 14:46-0400 Body weight 140.62 kg Pato Valentino DPM Work Phone: [facility] 09-13-2024 14:46-0400 Diastolic blood pressure 78 mm[Hg] Pato Koehler DPM Work Phone: [facility] 09-13-2024 14:46-0400 Heart rate 85 /min Pato Koehler DPM Work Phone: [facility] 09-13-2024 14:46-0400 Systolic blood pressure 123 mm[Hg] Pato Koehler DPM Work Phone: [facility] 08-30-2024 14:58-0400 Body height 157.5 cm Pato Koehler DPM Work Phone: [facility] 08-30-2024 14:58-0400 Body mass index (BMI) [Ratio] 56.7 kg/m2 Pato Valentino DPM Work Phone: [facility] 08-30-2024 14:58-0400 Body weight 140.62 kg Pato Valentino DPM Work Phone: [facility] 08-30-2024 14:58-0400 Diastolic blood pressure 80 mm[Hg] Pato Koehler DPM Work Phone: [facility] 08-30-2024 14:58-0400 Heart rate 75 /min Pato Koehler DPM Work Phone: [facility] 08-30-2024 14:58-0400 Respiratory rate 18 /min Pato Koehler DPM Work Phone: [facility] 08-30-2024 14:58-0400 Systolic blood pressure 128 mm[Hg] Pato Koehler DPM Work Phone: [facility] 08-02-2024 14:52-0400 Body height 157.5 cm Pato Koehler DPM Work Phone: [facility] 08-02-2024 14:52-0400 Body mass index (BMI) [Ratio] 56.7 kg/m2 Pato Koehler DPM Work Phone: [facility] 08-02-2024 14:52-0400 Body weight 140.62 kg Pato Koehler DPM Work Phone: [facility] 08-02-2024 14:52-0400 Diastolic blood pressure 79 mm[Hg] Pato Koehler DPM Work Phone: [facility] 08-02-2024 14:52-0400 Heart rate 82 /min Pato Koehler DPM Work Phone: [facility] 08-02-2024 14:52-0400 Systolic blood pressure 127 mm[Hg] Pato Koehler DPM Work Phone: [facility] 07-24-2024 14:58-0400 Body height 157.5 cm Jaime Biedenbach DO Work Phone: [facility] 07-24-2024 14:58-0400 Body mass index (BMI) [Ratio] 56.7 kg/m2 Jaime Biedenbach DO Work Phone: [facility] 07-24-2024 14:58-0400 Body weight 140.62 kg Jaime Biedenbach DO Work Phone: [facility] 05-16-2024 15:25-0400 Diastolic blood pressure 70 mm[Hg] [facility] Monique Lien Work Phone: [facility] 05-16-2024 15:25-0400 Heart rate 80 /min [facility] Monique Lien Work Phone: [facility] 05-16-2024 15:25-0400 Respiratory rate 22 /min [facility] Monique Lien Work Phone: [facility] 05-16-2024 15:25-0400 SaO2% (BldA) [Mass fraction] 94 % [facility] Monique Emmanuel Work Phone: [facility] 05-16-2024 15:25-0400 Systolic blood pressure 124 mm[Hg] [facility] Monique Emmanuel Work Phone: [facility] 05-16-2024 12:57-0400 Body temperature 98.6 [degF] [facility] Monique Emmanuel Work Phone: [facility] 05-16-2024 12:57-0400 Inhaled oxygen flow rate 6 L/min [facility] Monique Emmanuel Work Phone: [facility] 05-16-2024 10:38-0400 Body mass index (BMI) [Ratio] 56.5 kg/m2 [facility] Monique Emmanuel Work Phone: [facility] 05-16-2024 10:31-0400 Body height 157.48 cm [facility] Monique Emmanuel Work Phone: [facility] 05-16-2024 10:31-0400 Body weight 140.16 kg [facility] [employer] [facility] Monique Emmanuel Work Phone: [facility] 04-25-2024 13:27-0400 Diastolic blood pressure 85 mm[Hg] Pato Koehler [facility] 04-25-2024 13:27-0400 Heart rate 64 /min Pato Koehler [facility] 04-25-2024 13:27-0400 Mean blood pressure 103 mm[Hg] Pato Koehler [facility] 04-25-2024 13:27-0400 Systolic blood pressure 139 mm[Hg] Pato Koehler [facility] 04-25-2024 13:26-0400 Heart rate 65 /min Pato Koehler [facility] 04-25-2024 13:26-0400 Respiratory rate 16 /min Pato Koehler [facility] 04-25-2024 13:26-0400 SaO2% (BldA) [Mass fraction] 93 % Pato Koehler [facility] 04-25-2024 13:26-0400 Blood Pressure Location Pato Koehler [facility] 04-25-2024 13:26-0400 Body temperature 98.42 [degF] Pato Valentino [facility] 04-25-2024 13:26-0400 Diastolic blood pressure 83 mm[Hg] Pato Brown [facility] 04-25-2024 13:26-0400 Mean blood pressure 100 mm[Hg] Pato Brown [facility] 04-25-2024 13:26-0400 Systolic blood pressure 135 mm[Hg] Pato Koehler [facility] 02-27-2024 17:36-0400 Body height 154.94 cm [facility] [employer] Moniquegisselle Emmanuel Work Phone: [facility] 02-27-2024 17:36-0400 Body mass index (BMI) [Ratio] 58.4 kg/m2 [facility] Monique Lien Work Phone: [facility] 02-27-2024 17:36-0400 Body temperature 97.7 [degF] [facility] Monique Whitleymer Work Phone: [facility] 02-27-2024 17:36-0400 Body weight 140.38 kg [facility] Monique Whitleymer Work Phone: [facility] 02-27-2024 17:36-0400 Heart rate 87 /min [facility] Monique Emmanuel Work Phone: [facility] 02-27-2024 17:36-0400 Respiratory rate 18 /min [facility] Monique Emmanuel Work Phone: [facility] 02-27-2024 17:36-0400 SaO2% (BldA) [Mass fraction] 97 % [facility] Monique Emmanuel Work Phone: [facility] 03-22-2022 16:45-0400 Body height 154.94 cm Monique Dudley Other [employer] Other 03-22-2022 16:45-0400 Body mass index (BMI) [Ratio] 58.38 kg/m2 Monique Dudley Other [employer] Other 03-22-2022 16:45-0400 Body temperature 97.9 [degF] Monique Dudley Other [employer] Other 03-22-2022 16:45-0400 Body weight 140.16 kg Monique Dudley Other [employer] Other 03-22-2022 16:45-0400 Diastolic blood pressure 93 mm[Hg] Monique Dudley Other [employer] Other 03-22-2022 16:45-0400 Respiratory rate 20 /min Monique Suemond Other [employer] Other 03-22-2022 16:45-0400 SaO2% (BldA) [Mass fraction] 98 % Monique Dudley Other [employer] Other 03-22-2022 16:45-0400 Systolic blood pressure 154 mm[Hg] Monique Suemond Other [employer] Other Encounters Encounter Date Encounter Type Care Provider Facility Start: 10-24-2024 End: 10-24-2024 Postop follow up visit related to original px Pato Koehler DPM Work Phone: [facility] Comment on above: Stress fracture of r ight foot, initial encounter (Primary Dx); Type 2 diabetes mellitus without complication, 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 correction insulin use ([facility]); Accessory navicular bone of right foot Start: 10-24-2024 End: 10-24-2024 ambulatory PATO Elizabeth VALENTINO Not Available Start: 10-24-2024 End: 10-24-2024 Bamboo flowsheet Pato A Valentino DPM Work Phone: [facility] Start: 10-24-2024 End: 10-24-2024 Bamboo flowsheet Pato Johnson Valentino DPM Work Phone: [facility] Start: 10-04-2024 End: 10-04-2024 Postop follow [...] Bamboo flowsheet Pato Koehler DPM Work Phone: [facility] Start: 09-20-2024 End: 09-20-2024 Bamboo flowsheet Pato Koehler DPM Work Phone: [facility] Start: 09-13-2024 End: 09-13-2024 Postop follow up visit related to original px Pato Koehler DPM Work Phone: [facility] Comment on above: 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); Contracture of right ankle; Type 2 diabetes mellitus without complication, 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 correction insulin use ([facility]) Start: 09-13-2024 End: 09-13-2024 ambulatory PATO KOEHLER Not Available Start: 09-07-2024 End: 09-07-2024 Telephone encounter Pato Koehler DPM Work Phone: [facility] Start: 09-05-2024 End: 09-05-2024 Lab Drop off Pato Koehler [facility] Start: 09-05-2024 End: 09-05-2024 ambulatory DPM Pato Koehler [place] Start: 08-30-2024 End: 08-30-2024 Office outpatient visit 25 minutes Pato Koehler DPM Work Phone: [facility] Comment on above: 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); Type 2 diabetes mellitus without complication, 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 predatory animal exterminator insulin use ([facility]); Heel spur, left; Plantar fasciitis; Contracture of left ankle; Contracture of right ankle Start: 08-30-2024 End: 08-30-2024 ambulatory PATO KOEHLER Not Available Start: 08-30-2024 End: 08-30-2024 Bamboo flowsheet Pato Koehler DPM Work Phone: [facility] Start: 08-30-2024 End: 08-30-2024 Bamboo flowsheet Pato Koehler DPM Work Phone: [facility] Start: 08-02-2024 End: 08-02-2024 Office outpatient visit 15 minutes Pato Koehler DPM Work Phone: [facility] Comment on above: 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); Posterior tibial tendonitis of right leg; Type 2 diabetes mellitus without complication, 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 correction insulin use ([facility]) Start: 08-02-2024 End: 08-02-2024 ambulatory PATO KOEHLER Not Available Start: 08-02-2024 End: 08-02-2024 Bamboo flowsheet Pato Koehler DPM Work Phone: [facility] Start: 08-02-2024 End: 08-02-2024 Bamboo flowsheet Pato Koehler DPM Work Phone: [facility] Start: 07-24-2024 End: 07-24-2024 Office outpatient new 45 minutes Jaime Camargo DO Work Phone: [facility] Comment on above: Arthralgia of left t emporomandibular joint (Primary Dx); Left ear pain; Chronic rhinitis; Fullness in ear, left Start: 07-24-2024 End: 07-24-2024 ambulatory JAIME CAMARGO Not Available Start: 07-24-2024 End: 07-24-2024 Bamboo flowsheet Jaime Palmer Biyoubach DO Work Phone: [facility] Start: 07-24-2024 End: 07-24-2024 Bamboo flowsheet Jaime Palmer Biyoubach DO Work Phone: [facility] Start: 07-19-2024 End: 07-19-2024 Office outpatient visit 15 minutes Pato Koehler DPM Work Phone: [facility] Comment on above: Posterior tibial ten donitis of right leg (Primary Dx); Accessory navicular bone of left foot; Type 2 diabetes mellitus without complication, 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 predatory animal exterminator insulin use ([facility]); Accessory navicular bone of right foot Start: [...] 05-16-2024 Admission to same day surgery center [employer] Monique Emmanuel Work Phone: [facility] Start: 05-16-2024 End: 05-16-2024 ambulatory [facility] [employer] [facility] Monique Emmanuel Work Phone: [facility] Work Phone: Start: 05-03-2024 End: 05-03-2024 ambulatory PATO KOEHLER Not Available Start: 04-25-2024 ambulatory Pato Koehler [facility] Start: 04-25-2024 End: 04-25-2024 ambulatory DPM Pato Koehler Facility[facility] Start: 04-25-2024 End: 04-25-2024 Patient encounter procedure Pato Koehler [facility] Start: 04-16-2024 End: 05-10-2024 Pre-admission assessment Pato Koehler [facility] Start: 04-12-2024 End: 04-12-2024 ambulatory PATO KOEHLER Not Available Start: 03-29-2024 End: 03-29-2024 ambulatory PATO KOEHLER Not Available Start: 02-27-2024 End: 02-27-2024 ambulatory [facility] [employer] [facility] Monique Emmanuel Work Phone: [facility] Work Phone: Start: 02-27-2024 End: 02-27-2024 Patient encounter procedure [facility] [employer] Monique Emmanuel Work Phone: [facility] Work Phone: Start: [...] medical examination without abnormal findings MONIQUE EMMANUEL [facility] Start: 08-18-2022 End: 08-19-2022 ambulatory MONIQUE EMMANUEL Facility:[facility] Start: 08-18-2022 End: 08-19-2022 Encounter for general adult medical examination without abnormal findings MONIQUE EMMANUEL Facility:[facility] Start: 06-01-2022 End: 06-01-[address] WESTLEY JHA Facility:[facility] Start: 03-22-2022 End: 03-22-2022 ambulatory Monique Dudley Other [employer] Other Start: 03-22-2022 Office outpatient vi sit 15 minutes Monique Dudley [facility] Procedures Date Procedure Procedure Detail Performing Clinician Start: 05-16-2024 Debridement [facility] Shruti Emmanuel Work Phone: Start: 05-16-2024 X-ray of left foot [facility] [employer] Monique Emmanuel Work Phone: Start: 02-27-2024 Plain X-ray of right shoulder [employer] [employer] [facility] Monique Emmanuel Work Phone: Cholecystectomy Pato pulliam Plan of Treatment Date Care Activity Detail Author Start: 11-01-2024 End: 11-01-2024 Patient encounter procedure 11/01/2024 4:20 PM EST Office Visit [facility] [address] [place] [address] Pato Koehler DPM [address] [address] [facility] Start: 10-24-2024 End: 10-24-2024 Patient encounter procedure 10/24/2024 2:40 PM EST Office Visit [facility] [address] [place] [phone] Pato Koehler DPM [address] [address] Stress fracture of right foot, initial encounter (Primary Dx); Type 2 diabetes mellitus without complication, 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 predatory animal exterminator insulin use ([facility]) [facility] Comment on above: Stress fracture of r ight foot, initial encounter (Primary Dx); Type 2 diabetes mellitus without complication, 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 correction insulin use ([facility]) Start: 10-04-2024 End: 10-04-2024 Patient encounter procedure 10/04/2024 2:40 PM EST Office Visit [facility] [address] [place] [phone] Pato Koehler DPM [address] [address] 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); Contracture of right ankle [facility] Comment on above: 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); Contracture of right ankle Start: 09-20-2024 End: 09-20-2024 Patient encounter procedure 09/20/2024 2:40 PM EDT Office Visit [facility] [address] [address] Pato Koehler DPM [address] [address] 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); Contracture of right ankle [facility] Comment on above: 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); Contracture of right ankle Start: 09-13-2024 End: 09-13-2024 Patient encounter procedure 09/13/2024 3:20 PM EDT Office Visit [facility] [address] [facility] [address] [place] [address] Pato Koehler DPM [address] [address] [facility] Start: 09-12-2024 End: 09-12-2024 Patient encounter procedure 09/12/2024 3:00 PM EDT Office Visit [facility] [address] [place] [address] Pato Koehler DPM [address] [address] [facility] Start: 09-05-2024 End: 09-05-2024 Patient encounter procedure 09/05/2024 7:30 AM EDT Procedure Visit [facility] Pato Koehlre DPM [address] [address] [facility] Start: 08-30-2024 End: 08-30-2024 Patient encounter procedure 08/30/2024 2:50 PM EDT Office Visit [facility] [address] [facility] [address] [place] [phone] Pato Koehler DPM [address] [address] 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); Type 2 diabetes mellitus without complication, 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 predatory animal exterminator insulin use (CMS/FORMERLY [facility]) [facility] Comment on above: 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); Type 2 diabetes mellitus without complication, 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 predatory animal exterminator insulin use (CMS/HCC) Start: 08-02-2024 End: 08-02-2024 Patient encounter procedure [facility] Comment on above: 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); Posterior tibial tendonitis of right leg; Type 2 diabetes mellitus without complication, 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 correction insulin use (CMS/HCC) Start: 07-29-2024 Influenza vaccination Influenza Vacc ine (#1) [facility] Start: 07-24-2024 End: 07-24-2024 Patient encounter procedure [facility] Comment on above: Arrived Start: 07-19-2024 End: 07-19-2024 Patient encounter procedure 07/19/2024 4:00 PM EDT Office Visit [facility] [address] [place] [address] Pato Koehler DPM [address] [address] Accessory navicular bone of left foot (Primary Dx); Type 2 diabetes mellitus without complication, 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 correction insulin use (CMS/HCC) [facility] Comment on above: Accessory navicular bone of left foot (Primary Dx); Type 2 diabetes mellitus without complication, 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 correction insulin use (CMS/HCC) Start: 05-16-2024 [facility] Start: 05-16-2024 [facility] Start: 2018 Screening for malign ant neoplasm of cervix [facility] Start: 2009 Screening for malign ant neoplasm of cervix Pap Smear [facility] Start: 2007 Urine screening for protein Diabetes: Urine Protein Screening [facility] Start: 1998 Glaucoma screening Diabetes: R etinopathy Screening [facility] Start: 1988 Hemoglobin A1c measurement Diabetes: Hemoglobin A1C [facility] MR Foot - right WO contrast MR foot right wo IV contrast Imaging Routine Stress fracture of right foot, initial encounter Ordered: 10/04/2024 [facility] Work Phone: Comment on above: Ordered: 10/04/2024 Patient Education Know your Meds [facility] Work Phone: XR Foot - right 3 Views XR foot 3+ views right Imaging Routine Accessory navicular bone of right foot 09/13/2024 3:04 PM EDT [facility] Work Phone: XR Foot - right 3 Views XR foot 3+ views right Imaging Routine Accessory navicular bone of right foot 08/02/2024 3:28 PM EDT [facility] Work Phone: Immunizations Immunization Date Immunization Notes Care Provider Tony mcghee 07-19-2002 hepatitis B vaccine, pediatric or pediatric/adolescent dosage Jaime Camargo DO Work Phone: [facility] 07-19-2002 measles, mumps and rubella virus vaccine Jaime Camargo DO Work Phone: [facility] 04-16-1993 diphtheria, tetanus toxoids and pertussis vaccine Jaime Camargo DO Work Phone: [facility] 04-16-1993 trivalent poliovirus vaccine, live, oral Jaime Camargo DO Work Phone: [facility] 05-18-1990 haemophilus influenz ae type b vaccine, conjugate unspecified formulation Jaime Camargo DO Work Phone: [facility] 10-13-1989 diphtheria, tetanus toxoids and pertussis vaccine Jaime Camargo DO Work Phone: [facility] 10-13-1989 measles, mumps and rubella virus vaccine Jaime Camargo DO Work Phone: [facility] 10-13-1989 trivalent poliovirus vaccine, live, oral Jaime Camargo DO Work Phone: [facility] 05-11-1989 diphtheria, tetanus toxoids and pertussis vaccine Jaime Camargo DO Work Phone: [facility] 03-17-1989 diphtheria, tetanus toxoids and pertussis vaccine Jaime Camargo DO Work Phone: [facility] 03-17-1989 trivalent poliovirus vaccine, live, oral Jaime Camargo DO Work Phone: [facility] 1988 diphtheria, tetanus toxoids and pertussis vaccine Jaime Camargo DO Work Phone: [facility] 1988 trivalent poliovirus vaccine, live, oral Jaime Camargo DO Work Phone: [facility] Payers Date Payer Category Payer Self-pay [id number] 2020 [facility] [id number] 2020 Unknown BCBS BCBS xxxxxx [id number] 2020-Present [phone] [address] [place] [address] [id number]. 2.7.3.613156.315 1988 Unknown [id number] 2.16.840.1.419310.3.579. 2.593 1988 Unknown [id number] 2.16.840.1.122486.3.579. 2.593 1988 Unknown [id number] 2.16.840.1.086916.3.579. 2.593 1988 Unknown [id number] 2.16.840.1.078908.3.579. 2.593 1988 Unknown [id number] 2.16.840.1.960594.3.579. 2.593 1988 Unknown [id number] 2.16.840.1.633266.3.579. 2.593 1988 Unknown [id number] 2.16.840.1.702519.3.579. 2.593 1988 Unknown [id number] 2.16.840.1.763946.3.579. 2.593 1988 Unknown [id number] 2.16.840.1.193939.3.579. 2.727 1988 Unknown [id number] 2.16.840.1.725924.3.579. 2.1259 1988 Unknown [id number] 2.16.840.1.245237.3.579. 2.1259 1988 Unknown [id number] 2.16.840.1.107299.3.579. 2.1259 1988 Unknown [id number] 2.16.840.1.773768.3.579. 2.1259 1988 Unknown [id number] 2.16.840.1.592644.3.579. 2.1259 1988 Unknown [id number] 2.16.840.1.891168.3.579. 2.1259 1988 Unknown [id number] 2.16.840.1.306188.3.579. 2.727 1988 Unknown [id number] 2.16.840.1.820190.3.579. 2.9 1988 Unknown [id number] 2.16.840.1.779613.3.579. 2.1258 1988 Unknown [id number] 2.16.840.1.583021.3.579. 2.1258 1988 Unknown [id number] 2.16.840.1.277255.3.579. 2.1258 1988 Unknown [id number] 2.16.840.1.559327.3.579. 2.1258 1988 Unknown [id number] 2.16.840.1.751179.3.579. 2.1258 1988 Unknown [id number] 2.16.840.1.520423.3.579. 2.1258 1988 Unknown [id number] 2.16.840.1.599634.3.579. 2.1258 1988 Unknown [id number] 2.16.840.1.861704.3.579. 2.9 1988 Unknown [id number] 2.16.840.1.834849.3.579. 2.1259 1959 [facility] [id number] 2.16.840.1.137255.19 Unknown [id number] 2.16.840.1.694699.3.579. 2.531 Unknown [id number] 2.16.840.1.072854.3.579. 2.531 Social History Date Type Detail Facility Unknown if ever smoked [facility] Other Start: 07-24-2024 End: 08-02-2024 Sex Assigned At [facility] Start: 10-25-2018 End: 03-29-2024 Tobacco smoking status NHIS Never smoked tobacco (finding) [facility] Start: 1988 Sex Assigned At Female [facility] Tobacco smoking status No Smoking Status Entered [facility] Start: 03-29-2024 Tobacco use and exposure Smokeless [...] Assessment Result Facility 04-25-2024 Functional Status No [facility] Clinical Notes 03-22-2022 to 10-24-2024 [...] today for follow-up of MRI results at [facility]. Allergies: Allergies Allergen Reactions Sulfa Antibiotics Rash [...] 2 diabetes mellitus without complication, 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 correction insulin use ([facility]) 3. Accessory navicular bone of right [...] need more invasive surgery. Will refer to [facility] Dr. Phoenix for referral and consultation at tertiary care center secondary to more advanced type procedure may be necessary. Will refer for consultation and possible further intervention Pato Koehler DPM documented in this encounter [facility] 10-04-2024 History of Presen t illness Narrative [...] History: Past Medical History: Diagnosis Date Diabetes ([facility]) Ear problems GERD (gastroesophageal reflux disease) [...] Pato Koehler DPM documented in this encounter [facility] 09-20-2024 History of Presen t illness Narrative [...] History: Past Medical History: Diagnosis Date Diabetes ([facility]) Ear problems GERD (gastroesophageal reflux disease) [...] Pato Koehler DPM documented in this encounter [facility] 09-07-2024 Telephone encount er Note Has been called for possible increase in pain medication and will switch from hydrocodone to oxycodone and sent to [facility] and [place] [facility] 09-07-2024 Miscellaneous Notes Formattin g of this note might be different from the original. Has been called for possible increase in pain medication and will switch from hydrocodone to oxycodone and sent to [facility] and [facility] documented in this encounter [facility] 08-30-2024 History of Presen t illness Narrative [...] History: Past Medical History: Diagnosis Date Diabetes ([facility]) Ear problems GERD (gastroesophageal reflux disease) [...] cool tibia to toes b/l NEURO: 5.07 [place] Deyanira monofilament test positive to digits and [...] 2 diabetes mellitus without complication, 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 predatory animal exterminator insulin use ([facility]) 3. Heel spur, left 4. Plantar [...] risks, alternatives, benefits, post op complications and correction expectations were discussed including but not limited to: infection,bone infection,wound dehiscence hardware failure and irritation,wound dehiscence,delay union/mal union/non union of bone. RSDS,neuroma,duty limitations,DVT/PE, AR,nerve damage, scar, loss of sensation, swelling. Pt [...] Pato Koehler DPM documented in this encounter [facility] 08-02-2024 History of Presen t illness Narrative [...] History: Past Medical History: Diagnosis Date Diabetes ([facility]) Ear problems GERD (gastroesophageal reflux disease) [...] 2 diabetes mellitus without complication, 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 predatory animal exterminator insulin use ([facility]) PLAN Patient to continue with oral anti [...] Patient may continue with conservative treatments including nimz-jid-zbeyjha anti-inflammatories and other treatments suggested today. Patient may want to be scheduled for surgical intervention in the near future. Patient had a right modified Kidner procedure to the right foot with removal of accessory navicular with postoperative pain medicine of [place] and will see family Lien for preop clearance. This condition is unrelated to prior condition Pato Koehler DPM documented in this encounter [facility] 07-31-2024 Telephone encount er Note Pt called back, would like scanned at next appt [facility] 07-31-2024 Miscellaneous Notes Formattin g of this note might be different from the original. Pt called back, would like scanned at next appt Left vm to go over benefits Per call to [place] [employer] @ [phone] I verified the policy is current and active with an effective date of 11/28/2020. L3020 is covered at 100% as both the ded and oop have been met. There are no frequency limits, no exclusions, and no prior authorizations needed. Ref#: [id number]. Please precertify for custom orthotics for the diagnosis of Posterior tibial tendinitis bilaterally documented in this encounter [facility] 07-31-2024 Telephone encount er Note Left vm to go over benefits [facility] 07-27-2024 Telephone encount er Note Per call to [place] [employer] @ [phone] I verified the policy is current and active with an effective date of 11/28/2020. L3020 is covered at 100% as both the ded and oop have been met. There are no frequency limits, no exclusions, and no prior authorizations needed. Ref#: [id number]. [facility] 07-24-2024 History of Presen t illness Narrative [...] the next 7-10 days. Patient will use gcbg-[id number] ibuprofen 3 times a day with food to help decrease inflammation. The patient may also benefit from a mouth guard. We will consider referral to Dr. Adali SALAZAR if there is no improvement documented in this encounter [facility] 07-19-2024 Telephone encount er Note Please precertify for custom orthotics for the diagnosis of Posterior tibial tendinitis bilaterally [facility] 07-19-2024 History of Presen t illness Narrative Patient: Kyung Paul : 1990 PCP: [facility] Provider MD Milad SUBJECTIVE This is [...] History: Past Medical History: Diagnosis Date Diabetes ([facility]) Medications: Current Outpatient Medications: cholecalciferol (Vitamin D-3) [...] 2 diabetes mellitus without complication, 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 correction insulin use ([facility]) 3. Accessory navicular bone of right [...] Pato Koehler DPM documented in this encounter [facility] 03-22-2022 Evaluation note Encounter Date Diagnosis Assessment [...] no improvement in 5 to 7 days. [facility] Other Evaluation + Plan note Future Appointments Appointment Date:05/09/2024 07:30:00 AM Scheduled Provider: Location:[facility] Work Phone: Evaluation note* Diagnosis 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 Type 2 diabetes mellitus without complication, 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 predatory animal exterminator insulin use (CMS/HCC) Heel spur, left Plantar fasciitis Plantar fascial fibromatosis Contracture of left ankle Contracture of right ankle documented in this encounter [facility]* Diagnosis 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 documented in this encounter [facility]* Diagnosis 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 Contracture of right ankle Type 2 diabetes mellitus without complication, 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 correction insulin use (CMS/HCC) documented in this encounter [...] 2 diabetes mellitus without complication, 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 predatory animal exterminator insulin use (CMS/HCC) Accessory navicular bone of right foot documented in this encounter [facility]* Diagnosis Posterior tibial tendonitis of right leg- Primary Accessory navicular bone of left foot Type 2 diabetes mellitus without complication, 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 predatory animal exterminator insulin use (CMS/HCC) Accessory navicular bone of right foot documented in this encounter [facility]* Diagnosis Arthralgia of left temporomandibular joint- Primary Left ear pain Unspecified otalgia Chronic rhinitis Fullness in ear, left documented in this encounter [facility]* Diagnosis 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 Posterior tibial tendonitis of right leg Type 2 diabetes mellitus without complication, 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 predatory animal exterminator insulin use (CMS/HCC) documented in this encounter [facility]* Diagnosis Accessory navicular bone of left foot- Primary documented in this encounter [facility] HealthcareHistory general Narrative - Reported* Type Description Date Medical History Acquired hypothyroidism Medical History vitamin D deficiency Surgical History cholecystectomy Hospitalization History No Hospitalization histo ry information [place] [employer] Other History of Present illness Narrative* Pato [...] History: Past Medical History: Diagnosis Date Diabetes ([facility]) Ear problems GERD (gastroesophageal reflux disease) [...] 2 diabetes mellitus without complication, 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 predatory animal exterminator insulin use ([facility]) PLAN Patient to keep dry sterile [...] patient [facility] DPM [facility] N[facility] No data available for this section [facility] Discharge instructions No data available for this section [facility] Discharge instructions Additional Instructions DISCHARGE INSTRUCTIONS FOR [...] operative site FOLLOW UP Phone numbers: Office [phone] [ ][facility] Work Phone: Progress note No data available for this section [facility] Summary Purpose Family History Relationship Condition Age [...] bone of right foot Pato Koehler, DPMadi [address] [address] Referral ID Status Reason Start Date Expiration Date V isits Requested Visits Authorized [id number] Pending Review 09/07/2024 03/06/2025 1 1 Additional [...] content) DATE CREATED AUTHOR 05/06/2023 [facility] DATE CREATED AUTHOR AUTHOR'S ORGANIZ ATION 04/26/2024 [facility] DATE CREATED AUTHOR AUTHOR'S ORGANIZ ATION 05/25/2024 [facility] DATE CREATED AUTHOR AUTHOR'S ORGANIZ ATION 07/01/2024 [facility] DATE CREATED AUTHOR AUTHOR'S ORGANIZ ATION 09/12/2024 [facility] DATE CREATED AUTHOR AUTHOR'S ORGANIZ ATION 09/13/2024 [facility] DATE CREATED AUTHOR AUTHOR'S ORGANIZ ATION 09/15/2024 [facility] DATE CREATED AUTHOR AUTHOR'S ORGANIZ ATION 10/27/2024 [facility] EPIC Care [...] May 16, 2024 End: May 16, 2024 Loan Supervisor Relationship Specialty Start Date End Date Erich Garcia MD [address] [place] [phone] PCP - General Family Medicine 07/24/24 Monique Emmanuel MD [address] [place] [address] Referring Physician Family Medicine 03/29/24 Monique Emmanuel MD [address] [place] [address] Referring Physician Family Medicine 07/24/24 Jaime Camargo DO [address] [place] [address] Otolaryngology 07/24/24 Loan Supervisor Relationship Specialty Start Date End Date Erich Garcia MD [address] [place] [phone] PCP - General Family Medicine 07/24/24 Monique Emmanuel MD [address] [place] [address] Referring Physician Family Medicine 03/29/24 Monique Emmanuel MD [address] [place] [address] Referring Physician Family Medicine 07/24/24 Jaime Camargo DO [address] [place] [address] Otolaryngology 07/24/24 Loan Supervisor Relationship Specialty Start Date End Date Erich Garcia MD [address] [place] [phone] PCP - General Family Medicine 07/24/24 Monique Emmanuel MD [address] [place] [address] Referring Physician Family Medicine 03/29/24 Monique Emmanuel MD [address] [place] [address] Referring Physician Family Medicine 07/24/24 Jaime Camargo DO [address] [address] Otolaryngology 07/24/24 Loan Supervisor Relationship Specialty Start Date End Date Erich Garcia MD [address] [place] [phone] PCP - General Family Medicine 07/24/24 Monique Emmanuel MD [address] [place] [address] Referring Physician Family Medicine 03/29/24 Monique Emmanuel MD [address] [place] [address] Referring Physician Family Medicine 07/24/24 Jaime Camargo DO [address] [place] [address] Otolaryngology 07/24/24 Loan Supervisor Relationship Specialty Start Date End Date Erich Garcia MD [address] [place] [phone] PCP - General Family Medicine 07/24/24 Monique Emmanuel MD [address] [place] [address] Referring Physician Family Medicine 03/29/24 Monique Emmanuel MD [address] [place] [address] Referring Physician Family Medicine 07/24/24 Jaime Camargo DO [address] [place] [address] Otolaryngology 07/24/24 Loan Supervisor Relationship Specialty Start Date End Date Erich Garcia MD [address] [place] [phone] PCP - General Family Medicine 07/24/24 Monique Emmanuel MD [address] [place] [address] Referring Physician Family Medicine 03/29/24 Monique Emmanuel MD [address] [place] [address] Referring Physician Family Medicine 07/24/24 Jaime Camargo DO [address] [place] [address] Otolaryngology 07/24/24 Loan Supervisor Relationship Specialty Start Date End Date Erich Garcia MD [address] [place] [phone] PCP - General Family Medicine 07/24/24 Monique Emmanuel MD [address] [place] [address] Referring Physician Family Medicine 03/29/24 Monique Emmanuel MD [address] [place] [address] Referring Physician Family Medicine 07/24/24 Jaime Camargo DO [address] [place] [address] Otolaryngology 07/24/24 Loan Supervisor Relationship Specialty [place] [address] [place] [phone] PCP - General Family Medicine 07/24/24 Monique Emmanuel MD [address] [place] [address] Referring Physician Family Medicine 03/29/24 Monique Emmanuel MD [address] [place] [address] Referring Physician Family Medicine 07/24/24 Jaime Camargo DO [address] [place] [address] Otolaryngology 07/24/24 Loan Supervisor Relationship Specialty Start Date End Date Unallocated, Noms MD Ousmane [address] [place] [address] PCP - General Family Medicine 03/29/24 Monique Emmanuel MD [address] [place] [address] Referring Physician Family Medicine 03/29/24 Loan Supervisor Relationship Specialty Start Date End Date Erich Garcia MD [address] [place] [phone] PCP - General Family Medicine 07/24/24 Monique Emmaneul MD [address] [place] [address] Referring Physician Family Medicine 03/29/24 Monique Emmanuel MD [address] [place] [address] Referring Physician Family Medicine 07/24/24 Jaime Camargo DO [address] [place] [address] Otolaryngology 07/24/24 Loan Supervisor Relationship Specialty Start Date End Date Unallocated, Noms MD Ousmane [address] [place] [address] PCP - General Family Medicine 03/29/24 Monique Emmanuel MD [address] [place] [address] Referring Physician Family Medicine 03/29/24 Loan Supervisor Relationship Specialty Start Date End Date Erich Garcia MD [address] [place] [phone] PCP - General Family Medicine 07/24/24 Monique Emmanuel MD [address] [place] [address] Referring Physician Family Medicine 03/29/24 Monique Emmanuel MD [address] [place] [address] Referring Physician Family Medicine 07/24/24 Jaime Camargo DO [address] [address] Otolaryngology 07/24/24 Loan Supervisor Relationship Specialty Start Date End Date Erich Garcia MD [address] [place] [phone] PCP - General Family Medicine 07/24/24 Monique Emmanuel MD [address] [place] [address] Referring Physician Family Medicine 03/29/24 Monique Emmanuel MD [address] [place] [address] Referring Physician Family Medicine 07/24/24 Jaime Camargo DO [address] [place] [address] Otolaryngology 07/24/24 Loan Supervisor Relationship Specialty Start Date End Date Erich Garcia MD [address] [place] [phone] PCP - General Family Medicine 07/24/24 Monique Emmanuel MD [address] [place] [address] Referring Physician Family Medicine 03/29/24 Monique Emmanuel MD [address] [place] [address] Referring Physician Family Medicine 07/24/24 Jaime Camargo DO [address] [place] [address] Otolaryngology 07/24/24 Loan Supervisor Relationship Specialty Start Date End Date Unallocated, Yashira Romeo MD [address] [facility] [place] [address] PCP - General Family Medicine 03/29/24 07/23/24 Erich Garcia MD [address] [place] [phone] PCP - General Family Medicine 07/24/24 Monique Emmanuel MD [address] [place] [id number] Referring Physician Family Medicine 03/29/24 Monique Emmanuel MD [address] [place] [address] Referring Physician Family Medicine 07/24/24 Jaime Camargo DO [address] [place] [address] Otolaryngology 07/24/24 Goals (unrecognized section and content) [...] BE BASED ON THE PRIMARY CLINICAL RECORDS. [employer] provides no warranty or guarantee of the accuracy or completeness of information in this document.
--- NOTE | 2024-11-20 20:45 | CT_ITS ---
The [address] [address] Patient Name: NOEL ROCHE MRN: [id number] date: 1990 Sex: F Assigned Patient Location: ER Current Patient Location: Accession/Order Number: [id number] Exam Date: 11/20/2024 21:30 Report Date: 11/20/2024 23:30 At the request of: RON MYERS Procedure: CT soft tissue neck w con EXAMINATION: CT Soft Tissue Neck with IV Contrast TECHNIQUE: Axial CT imaging of the neck was performed following the intravenous injection of contrast material according to the standard protocol. Sagittal and coronal 2-D reformats were made from source images. CONTRAST: The amount and type of contrast are recorded int he medical record. QPP DOCUMENTATION: At least one of the following dose reduction techniques was utilized: Iterative reconstruction, and/or Automatic Exposure Control, and/or mA/kV adjustment based on body size. INDICATION: . R jaw swelling COMPARISON: CT facial bones, 11/17/[address] neck, 08/09/2020 FINDINGS: Pharynx/Larynx: The palatine tonsils are mildly enlarged. Otherwise, the nasopharynx, oropharynx, hypopharynx, and larynx are unremarkable. The trachea and visualized esophagus are unremarkable. No retropharyngeal fluid collections. Normal appearance of the epiglottis. No tonsillar/peritonsillar abscesses. Oral Cavity: The visualized portions of the oral tongue and floor of mouth are unremarkable. Lymph Nodes: There is a mildly enlarged right level 1B lymph node which was also present on the prior exam. Vascular: The vascular structures of the neck are unremarkable. Thyroid: The thyroid gland is unremarkable. Parotid and Submandibular Glands: Symmetric appearance of the submandibular and parotid glands. There has been an interval decrease in edema throughout the right parotid gland since prior examination. There is persistent induration of the fat along the lateral aspect of the right submandibular gland which was also present on the prior exam. No sialolithiasis. Osseous Structures: Unremarkable. Orbits and Paranasal Sinuses: The visualized orbits and paranasal sinuses are unremarkable. Intracranial: The visualized intracranial structures are unremarkable. Lung Apices: The visualized lung apices are clear. CT/CT soft tissue neck w con IMPRESSION: 1. There is mild induration of the fat along the lateral aspect of the right submandibular gland which was also present on prior study. There is also mildly enlarged right level 1B lymph node in this region. This is nonspecific. There has been an interval decrease in edema throughout the right parotid gland since examination dated 11/17/2024. No discrete fluid collections to suggest abscess formation. Electronically authenticated by: PIPO GONZALEZ Date: 11/20/2024 23:30
--- NOTE | 2024-11-20 20:52 | ED.GENADUL1 ---
HPI HPI - General Adult General Chief complaint: Neck Pain/Injury Stated complaint: Swelling Face Time Seen by Provider: 11/20/24 20:34 Source: patient Mode of arrival: walk-in Limitations: no limitations History of Present Illness HPI narrative: Patient presents to ED complaining of right sided facial pain and swelling. Patient was here on 1221 with similar symptoms. She was diagnosed with acute parotitis. She was sent home with oral antibiotics. She had IV antibiotics in the ED at that time. She was sent home with ibuprofen for pain. She was sent home on Augmentin. She states she has been taking the Augmentin and using return for pain but the swelling has been getting worse. She states it has been more difficult to swallow and that the base of her tongue hurts the right side of her face hurts and she is also getting swelling in the submandibular region. She is not drooling she is managing her airway no wheezing no stridor. No trismus. Patient does states the swelling is getting worse and spreading underneath her jaw so she was concerned and she came in for further evaluation. Related Data Home Medications ?Medication ?Instructions ?Recorded ?Confirmed cholecalciferol (vitamin D3) 125 125 mcg PO QAM 10/26/24 11/20/24 mcg (5,000 unit) tablet escitalopram oxalate 20 mg tablet 20 mg PO QAM 10/26/24 11/20/24 glipizide 5 mg tablet 5 mg PO QAM 10/26/24 11/20/24 metformin 500 mg tablet 500 mg PO BID 10/26/24 11/20/24 phentermine 37.5 mg tablet 37.5 mg PO QAM 10/26/24 11/20/24 trazodone 100 mg tablet 100 mg PO QPM PRN sleep 10/26/24 11/20/24 Previous Rx's ?Medication ?Instructions ?Recorded ketorolac 10 mg tablet 10 mg PO TID 5 days #15 tabs 11/05/24 oxycodone-acetaminophen 5 mg-325 1 tab PO Q4H PRN pain 7 days #40 11/05/24 mg tablet (Percocet) tabs amoxicillin 875 mg-potassium 1 tab PO BID #20 tabs 11/17/24 clavulanate 125 mg tablet ibuprofen 800 mg tablet 800 mg PO Q8H PRN pain #30 tabs 11/17/24 amoxicillin 875 mg-potassium 1 tab PO BID 3 days #6 tabs 11/20/24 clavulanate 125 mg tablet oxycodone-acetaminophen 5 mg-325 1 tab PO Q6H PRN pain #14 tabs 11/20/24 mg tablet (Percocet) Allergies Allergy/AdvReac Type Severity Reaction Status Date / Time Sulfa (Sulfonamide Allergy Severe Hives Verified 11/20/24 20:49 Antibiotics) Opioid HPI Opioid Management Most Recent Opioid Data: Last Pain Scale 1 11/21/24 00:02 11/21/24 Last ED Pain Assessment 11/21/24 00:02 Last ORT Total Score 1 11/05/24 18:57 11/05/24 Last ORT Risk Category Low Risk 11/05/24 18:57 11/05/24 Review of Systems ROS Status of ROS 10 or more systems reviewed and unremarkable except as noted in history and below [facility] Medical History (Updated 11/20/24 @ 23:55 by Mickie Quijano DO) Arthritis of right acromioclavicular joint ?M19.011 - Primary osteoarthritis, right shoulder (ICD-10) Acromioclavicular joint arthritis ?M19.019 - Primary osteoarthritis, unspecified shoulder (ICD-10) Accessory navicular bone of both feet ?Q74.2 - Other congenital malformations of lower limb(s), including pelvic girdle (ICD-10) Navicular fracture of ankle ?S92.253A - Displaced fracture of navicular [scaphoid] of unspecified foot, initial encounter for closed fracture (ICD-10) Osteoarthritis ?M19.90 - Unspecified osteoarthritis, unspecified site (ICD-10) Insomnia ?G47.00 - Insomnia, unspecified (ICD-10) Anxiety ?F41.9 - Anxiety disorder, unspecified (ICD-10) Restless leg ?G25.81 - Restless legs syndrome (ICD-10) GERD (gastroesophageal reflux disease) ?K21.9 - Gastro-esophageal reflux disease without esophagitis (ICD-10) Diabetes ?E11.9 - Type 2 diabetes mellitus without complications (ICD-10) Surgical History (Updated 10/26/24 @ 10:36 by Laura Cabral) History of cholecystectomy ?Z90.49 - Acquired absence of other specified parts of digestive tract (ICD-10) Family History (Updated 10/26/24 @ 10:32 by Laura Cabral) Other Family history of COPD (chronic obstructive pulmonary disease) Family history of coronary artery disease Family history of diabetes mellitus Family history of seizures Social History (Updated 10/26/24 @ 10:30 by Laura Cabral) Within the past year, how often did you have a drink containing alcohol: never Score interpretation: A score less than 3 is consistent with normal alcohol consumption. 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 Highest level of school completed/degree received: high school graduate Little interest or pleasure in doing things: not at all Feeling down, depressed, or hopeless: not at all Exam Narrative Exam Narrative: General: alert, no acute distress Cardiovascular: regular rate and rhythm, normal peripheral perfusion. Respiratory: Lungs CTA, respirations non labored. Extremities: no deformity, no trauma. Neurological: oriented x 4, LOC appropriate for age. Right sided facial swelling submandibular swelling patient has mild swelling under the tongue on the right side. No trismus no drooling no stridor. Patient is maintaining airway. She does have tenderness to palpation in all of these areas on the right side Constitutional Vital Signs, click to edit/add: Last Vital Signs Temp 98.3 F 11/20/24 20:38 Pulse 78 11/20/24 20:38 Resp 16 11/20/24 22:10 BP 144/90 H 11/20/24 22:10 Pulse Ox 97 11/20/24 22:10 O2 Del Method Room Air 11/20/24 22:10 Course Vital Signs Vital signs: Vital Signs Temperature 98.3 F 11/20/24 20:38 Pulse Rate 78 11/20/24 20:38 Respiratory Rate 14 11/20/24 20:38 Blood Pressure 168/115 H 11/20/24 20:38 Pulse Oximetry 96 11/20/24 20:38 Oxygen Delivery Method Room Air 11/20/24 20:38 Temperature 98.3 F 11/20/24 20:38 Pulse Rate 78 11/20/24 20:38 Respiratory Rate 16 11/20/24 22:10 Blood Pressure 144/90 H 11/20/24 22:10 Pulse Oximetry 97 11/20/24 22:10 Oxygen Delivery Method Room Air 11/20/24 22:10 Medical Decision Making MDM Narrative Medical decision making narrative: Patient's labs are negative for any acute findings. White blood cell count is not elevated. Patient's vitals are stable. Patient does not have a fever, no tachycardia no hypoxia. No wheezing no drooling no trismus. Patient's CT scan actually shows some improvement with the parotid gland swelling. She does still have some lymphadenopathy in the right side and fat stranding. No airway narrowing no deep abscess or deep infection no retropharyngeal infection. Patient feels better after Dilaudid and Toradol. Patient was given IV Unasyn here in ED and was instructed to continue her Augmentin. She said she was only given 7 days of Augmentin so I ordered 3 more days to extend her to 10 days. I also ordered her stronger pain medication for home. She was given strict instructions to return to the emergency room if she had difficulty breathing any drooling any difficulty swallowing fevers chills vomiting or any further concerns. Patient was instructed to follow-up with ENT and outpatient information was given to her. Patient expresses understanding of care and is comfortable with plan for home Differential Diagnosis Differential Diagnosis: Peritonsillar abscess, parotitis, deep space abscess Medical Records Medical records reviewed: Yes I reviewed the patient's medical records Lab Data Lab results reviewed: Yes I reviewed the patient's lab results Labs: Lab Results 11/20/24 Range/Units 21:25 WBC 9.0 (4.0-11.0) 10^3/uL RBC 4.68 (4.20-5.40) 10^6/uL Hgb 11.8 L (12.0-16.0) g/dL Hct 38.8 (36.0-48.0) % MCV 82.9 (81.0-99.0) fL MCH 25.2 L (26.7-34.0) pg MCHC 30.4 (29.9-35.2) g/dL RDW 15.1 H (11.0-15.0) % Plt Count 314 (150-450) 10^3/uL MPV 9.6 (9.5-13.5) fL Neut % (Auto) 62.6 (43.0-75.0) % Lymph % (Auto) 27.2 (20.5-60.0) % [place] % (Auto) 5.7 (1.7-12.0) % Eos % (Auto) 3.2 (0.9-7.0) % Baso % (Auto) 0.4 (0.2-2.0) % Neut # (Auto) 5.6 (1.4-6.5) 10^3/uL Lymph # (Auto) 2.5 (1.2-3.8) 10^3/uL [place] # (Auto) 0.5 (0.3-0.8) 10^3/uL Eos # (Auto) 0.3 (0.0-0.7) 10^3/uL Baso # (Auto) 0.0 (0.0-0.1) 10^3/uL Abs Immat Gran (auto) 0.08 H (0.00-0.03) 10^3/uL Imm/Tot Granulo (auto) 0.9 H (0.0-0.5) % Sodium 139 (136-145) mmol/L Potassium 4.2 (3.5-5.1) mmol/L Chloride 104 (98-107) mmol/L Carbon Dioxide 27.8 (21.0-32.0) mmol/L Anion Gap 11.4 BUN 16.0 (7.0-18.0) mg/dL Creatinine 0.79 (0.55-1.02) mg/dL Est GFR ( Amer) >60 (>=60 mL/min/1.73m^2) Est GFR (Non-Af Amer) >60 (>=60 mL/min/1.73m^2) BUN/Creatinine Ratio 20.3 Glucose 131 H (74-106) mg/dL Calcium 8.9 (8.5-10.1) mg/dL Total Bilirubin 0.5 (0.2-1.0) mg/dL AST 36 (15-37) U/L ALT 51 (14-59) U/L Alkaline Phosphatase 56 (46-116) U/L Total Protein 7.0 (6.4-8.2) g/dL Albumin 2.9 L (3.4-5.0) g/dL Globulin 4.1 g/dL Albumin/Globulin Ratio 0.[address] scan - abdomen: Radiologist's impression: ITS Impressions Soft Tissue Neck CT 11/20/24 20:45 IMPRESSION: 1. There is mild induration of the fat along the lateral aspect of the right submandibular gland which was also present on prior study. There is also mildly enlarged right level 1B lymph node in this region. This is nonspecific. There has been an interval decrease in edema throughout the right parotid gland since examination dated 11/17/2024. No discrete fluid collections to suggest abscess formation. Electronically authenticated by: PIPO GONZALEZ Date: 11/20/2024 23:30 Discharge Plan Discharge Chief Complaint: Neck Pain/Injury Clinical Impression: Acute parotitis, Lymphadenopathy Patient Disposition: Home, Self-Care Time of Disposition Decision: 23:55 Condition: Good Mode of Transportation: Private Vehicle Prescriptions / Home Meds: New amoxicillin-pot clavulanate 875-125 mg tablet 1 tab PO BID 3 Days Qty: 6 0RF oxycodone-acetaminophen [Percocet] 5-325 mg tablet 1 tab PO Q6H PRN (Reason: pain) Qty: 14 0RF No Action ibuprofen 800 mg tablet 800 mg PO Q8H PRN (Reason: pain) Qty: 30 0RF amoxicillin-pot clavulanate 875-125 mg tablet 1 tab PO BID Qty: 20 0RF cholecalciferol (vitamin D3) 125 mcg (5,000 unit) tablet 125 mcg PO QAM escitalopram oxalate 20 mg tablet 20 mg PO QAM glipizide 5 mg tablet 5 mg PO QAM phentermine 37.5 mg tablet 37.5 mg PO QAM trazodone 100 mg tablet 100 mg PO QPM PRN (Reason: sleep) metformin 500 mg tablet 500 mg PO BID oxycodone-acetaminophen [Percocet] 5-325 mg tablet 1 tab PO Q4H PRN (Reason: pain) 7 Days Qty: 40 0RF ketorolac 10 mg tablet 10 mg PO TID 5 Days Qty: 15 0RF Print Language: Montenegrin Instructions: Lymphadenopathy (ED), Parotid Duct Obstruction (ED), Adenitis (ED) Referrals: Carly Núñez MD [Physician] - 1 week GUERRERO EMMANUEL [Primary Care Provider] - 1 week Discharge Date/Time: 11/21/24 00:37
[2024-11-20] MEDS: KETOROLAC TROMETHAMINE 30 MG/ML VIAL 15 MG IVP (22:06)
[2024-11-20 22:10] VITALS: BP 144/90; O2SAT 97
[2024-11-20 22:12] LABS: Basophils Percent Auto 0.4 % (0.2-2.0); Eosinophils Absolute Auto 0.3 10^3/uL (0.0-0.7); Eosinophils Percent Auto 3.2 % (0.9-7.0); Hematocrit 38.8 % (36.0-48.0); Hemoglobin 11.8 g/dL (12.0-16.0); Immature Granulocytes Abs Auto 0.08 10^3/uL (0.00-0.03); Immature Granulocytes Pct Auto 0.9 % (0.0-0.5); Lymphocytes Absolute Auto 2.5 10^3/uL (1.2-3.8); Lymphocytes Percent Auto 27.2 % (20.5-60.0); Mean Corpuscular HGB Conc 30.4 g/dL (29.9-35.2); Mean Corpuscular Hemoglobin 25.2 pg (26.7-34.0); Mean Corpuscular Volume 82.9 fL (81.0-99.0); Mean Platelet Volume 9.6 fL (9.5-13.5); Monocytes Absolute Auto 0.5 10^3/uL (0.3-0.8); Monocytes Percent Auto 5.7 % (1.7-12.0); Neutrophils Absolute Auto 5.6 10^3/uL (1.4-6.5); Neutrophils Percent Auto 62.6 % (43.0-75.0); Platelet Count 314 10^3/uL (150-450); Red Blood Count 4.68 10^6/uL (4.20-5.40); Red Cell Distribution Width 15.1 % (11.0-15.0)
[2024-11-20] MEDS: HYDROMORPHONE HCL 1 MG/ML CARTRIDGE IV (22:35)
[2024-11-20 22:43] LABS: Alanine Aminotransferase 51 U/L (14-59); Albumin Globulin Ratio 0.7; Albumin Level 2.9 g/dL (3.4-5.0); Alkaline Phosphatase 56 U/L (46-116); Anion Gap 11.4; Aspartate Amino Transferase 36 U/L (15-37); BUN Creatinine Ratio 20.3; Bilirubin Total 0.5 mg/dL (0.2-1.0); Calcium 8.9 mg/dL (8.5-10.1); Carbon Dioxide 27.8 mmol/L (21.0-32.0); Chloride 104 mmol/L (98-107); Estimated GFR (African America >60 (>=60 mL/min/1.73m^2); Estimated GFR (Non-African Ame >60 (>=60 mL/min/1.73m^2); Globulin 4.1 g/dL; Glucose 131 mg/dL (74-106); Potassium 4.2 mmol/L (3.5-5.1); Sodium 139 mmol/L (136-145)
[2024-11-20] MEDS: AMPICILLIN SODIUM/SULBACTAM NA 3 GM in 0.9 % SODIUM CHLORIDE 100 ML IV (23:54)
== END 2024-11-21 00:37 | disposition home or self-care (01) ==
PROVIDERS: Emergency Provider Emergency Medicine; PCP Nurse Practitioner Family
DX: K11.21 Acute sialoadenitis (principal); R59.1 Generalized enlarged lymph nodes; Z90.49 Acquired absence of other specified parts of digestive tract
CPT/HCPCS: 36415; 70491; 80053; 85025; 96365; 96375; 99285; J0295; J1171; J1885; Q9967

== ENCOUNTER 2024-12-03 15:55 | Outpatient (RCR) | payer BC, SELFPAY | END 2025-03-22 16:27 | disposition home or self-care (01) | LOC: PT 15:55 | PROVIDERS: PCP Nurse Practitioner Family; Visit Provider Orthopaedic Surgery | DX: M25.511 Pain in right shoulder (principal); S43.5 Sprain of acromioclavicular joint; M19.011 Primary osteoarthritis, right shoulder | CPT/HCPCS: 97110; 97140; 97162 ==

== ENCOUNTER 2024-12-05 19:44 | Outpatient (OUT) | payer BC, SELFPAY | END 2024-12-05 19:45 | disposition home or self-care (01) | LOC: SLEEP 19:44 | PROVIDERS: PCP Nurse Practitioner Family; Visit Provider Nurse Practitioner Family | DX: G47.33 Obstructive sleep apnea (adult) (pediatric) (principal) | CPT/HCPCS: 95810 ==

== ENCOUNTER 2024-12-17 20:40 | Outpatient (OUT) | payer BC, SELFPAY ==
--- OUTSIDE RECORDS SUMMARY | 2024-12-17 20:43 | XMS_ITS | CCD ---
Author Organization [facility] Care Team Providers Care Airplane And Engine Inspector Name Role Phone Monique Dudley Unavailable [...] BRIDGETTE ., SUNIL FAITH Consulting Unavailsandra Dudley NP-Teresa Amaya Attending Provider LORI Emmanuel Primary Care Provider [...] Unavailable Erich Garcia MD Primary Care Provider [phone] Jaime Camargo DO Unavailable [phone] Brown, DPM Pato A Attending Unavailabl e [...] MD, Noms Provider Primary Care Provi anna ELATTAR, OSAMA Referring Unavailable ELATTAR, OSAMA Referring Unavailable BROWN, PATO A Referring Unavailable ELATTAR, OSAMA Attending Unavailable Unavailable Primary Care Provider Unavailabl e SEAN MATA Referring Unavailab SEAN Dyson Attending Unavailab le Allergies Allergy Classification Reported Allergen(s) Allergy Type Date of Onset Reaction(s) Facility (1 source) Egg protein Drug allergy Lot18 Other (1 source) Sulf-10 Drug allergy Lot18 Other (1 source) Sulfonamides (Antibiotic) Drug allergy (disorder) 3 [facility] (9 sources) Sulfonamides (Antibiotic); Translations: [Sulfa (Sulfonamide Antibiotics)] Allergy to substance 4 Hives, Rash [facility] (4 sources) Egg Derived; Translations: [Egg Derived] Allergy to substance 4 hives [facility] (5 sources) Sulfonamides (Antibiotic); Translations: [sulfa drugs] Drug allergy [facility] (20 sources) Sulfonamides (Antibiotic) Drug Allergy 4 Rash, Hives [facility] Medications Current Medications Medication Drug Class(es) Dates Sig (Normalized) Sig (Original) acetaminophen 325 mg / HYDROcodone bitartrate 5 mg oral tablet (2 sources) Opioid Agonist Start: 08-30-2024 End: 09-04-2024 take 1 tablet by mouth every eight hours as needed for pain HYDROcodone-aceta minophen ([facility]) 5-325 MG tablet Indications: Pain Take 1 tablet by mouth every 8 (eight) hours if needed for moderate pain (PRN pain) for up to 5 days 15 tablet 08/30/2024 09/04/2024 Active acetaminophen 325 mg / oxyCODONE hydrochloride 5 mg oral tablet (7 sources) Opioid Agonist Start: 10-24-2024 End: 10-29-2024 [...] 5 days 15 tablet 09/07/2024 09/12/2024 Active take 1 tablet by jose th every six hours as needed oxyCODONE-acetaminophen (PERCOCET) 5-325 mg tablet Take 1 tablet by mouth every 6 hours as needed. Active cholecalciferol 0.125 mg oral tablet (20 sources) Vitamin D Start: 01-30-2024 cholecalcifero l (Vitamin D-3) 125 MCG (5000 UT) tablet 1 (one) time each day at the same time 01/30/2024 Active take 1 tablet by mouth once billy y cholecalciferol (VITAMIN D3) 5,000 unit tab Take 5,000 Units by mouth once daily. Active DEXCOM G6 TRANSMITTER eduin (4 sources) Start: 09-03-2024 DEXCOM G6 TRANSMITTER eduin as directed. 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 G7 WIRE TECHNICIAN misc (4 sources) Start: 09-20-2024 DEXCOM G7 RECE IVER 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 09/20/2024 Active DEXCOM G7 SENSOR eduin (4 sources) Start: 12-12-2024 DEXCOM G7 SENS OR eduin 12/12/2024 Active escitalopram 20 mg oral tablet (20 sources) Serotonin Reuptake Inhibitor Start: 04-25-2024 take 20 mg by mouth once daily Escitalopram Oxalate Active 20 MG PO Daily May 16, 2024 12:00am Start: 03-12-2024 Lexapro 10 MG tablet 1 (one) time each day at the same time 03/12/2024 Active take 0.5 tablet by m outh once daily, then take 1 tablet by mouth once daily escitalopram oxalate (LEXAPRO) 20 mg tablet TAKE 1/2 TABLET BY MOUTH ONCE A DAY FOR 1 WEEK THEN 1 TABLET ONCE A DAY Active glipiZIDE 5 mg oral tablet (4 sources) Sulfonylurea Start: 12-06-2024 glipiZIDE (GLU COTROL) 5 mg tablet 12/06/2024 Active metFORMIN hydrochloride 500 mg oral tablet (20 sources) Biguanide Start: 05-23-2023 metFORMIN (Glu cophage) 500 MG tablet 1 (one) time each day at the same time 05/23/2023 Active Start: 08-28-2022 take 1 tablet by jose twice daily at mealtime metFORMIN (GLUCOPHAGE) 500 mg tablet TAKE 1 TABLET BY MOUTH TWICE A DAY WITH MEAL 08/28/2022 Active omeprazole 20 mg delayed release oral capsule (20 sources) Proton Pump Inhibitor Start: 02-27-2024 take 1 capsule by mouth once daily omeprazole (PRILOSEC) 20 mg capsule TAKE 1 CAPSULE BY MOUTH EVERY DAY for 90 04/25/2024 Active traZODone hydrochloride 100 mg oral tablet (20 sources) Serotonin Reuptake Inhibitor Start: 10-04-2024 take 1 tablet by mouth once daily at bedtime as needed traZODone (DESYREL) 100 mg tablet TAKE 1 TABLET BY MOUTH EVERYDAY AT BEDTIME NEEDED 10/04/2024 Active Start: 05-16-2024 take 100 mg by mouth [...] day at the same time 03/12/2024 Active [place] Sling (3 sources) Start: 02-27-2024 [place] Slin g Active 0 .Route 1 February [...] right ankle] 08-30-2024 Chronic Other congenital anomalies (3 sources) Other congenital malformations of lower limb(s), including pelvic girdle; 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), including pelvic girdle] Onset: 05-16-2024 Chronic Other congenital anomalies (19 sources) Accessory right tarsal navicular bone; Translations: [...] Translations: [Plantar fascial fibromatosis] 08-30-2024 Episodic Other connective tissue disease (2 sources) Pain in right foot; Translations: [Pain in right foot] Onset: 11-26-2024 Episodic Other connective tissue disease (2 sources) Posterior tibial tendinitis, right leg; Translations: [Posterior tibial tendinitis, right leg] Onset: 11-26-2024 Episodic Other connective tissue disease (1 source) Pain in right foot; Translations: [Pain in right foot] 12-12-2024 Episodic Other non-traumatic joint disorders (1 source) [...] (not diabetes) (3 sources) Pancreatitis 02-08-2014 Episodic Residual codes; unclassified (1 source) Pain; Translations: [Pain, unspecified] 12-12-2024 Episodic Residual codes; unclassified (1 source) Pain, unspecified; Translations: [Pain] Onset: 12-12-2024 Episodic Unclassified (1 source) CONTACT W/AND (SUSP) [...] Test Name Value Interpretation Reference Range Facility [facility] 12-12-2024 OV Office Visit (LOORRM) NOEL PAUL ([id number]) 1990 F [place] Date Time Provider Department 12/12/24 10:00 AM SEAN MATA LOORRM During your visit today, we recorded the following information about you: Sean Mata, SHITAL 12/12/2024 10:46 AM Signed [facility] Department of Orthopedics [facility] Orthopedic Surgery Name: Noel Paul Date of Service: December 12, 2024 CC/HPI: This 34 year old pleasant female patient presents to the clinic today with her present upon referral from Dr. Pato Koehler. The patient underwent right foot surgery in August for excess navicular and has had subsequent pain ever since. She has not had any physical therapy. She states her still a prominence over the medial aspect of her left foot. She had her left foot done prior to the with very little discomfort. She had an MRI performed of her left foot on October 18, 2024 which revealed a stress response navicular with an accessory navicular. She is seen today to discuss the problem and treatment options along with her plan of care. No past medical history on file. Current Outpatient Medications Medication Sig DEXCOM G7 WIRE TECHNICIAN 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 DEXCOM G7 SENSOR eduin DEXCOM G6 TRANSMITTER eduin as directed. glipiZIDE (GLUCOTROL) 5 mg tablet metFORMIN (GLUCOPHAGE) 500 mg tablet TAKE 1 TABLET BY MOUTH TWICE A DAY WITH MEAL omeprazole (PRILOSEC) 20 mg capsule TAKE 1 CAPSULE BY MOUTH EVERY DAY for 90 traZODone (DESYREL) 100 mg tablet TAKE 1 TABLET BY MOUTH EVERYDAY AT BEDTIME NEEDED cholecalciferol (VITAMIN D3) 5,000 unit tab Take 5,000 Units by mouth once daily. escitalopram oxalate (LEXAPRO) 20 mg tablet TAKE 1/2 TABLET BY MOUTH ONCE A DAY FOR 1 WEEK THEN 1 TABLET ONCE A DAY oxyCODONE-acetaminop hen (PERCOCET) 5-325 mg tablet Take 1 tablet by mouth every 6 hours as needed. No current facility-administere d medications for this visit. ALLERGIES Allergen Reactions Sulfa (Sulfonamide * Hives, Rash No past surgical history on file. No family history on file. Physical Exam: Patient is in a wheelchair with longer CAM Walker boot on the right lower extremity. Upon removal: The patient is alert and oriented x 3 in no apparent acute distress. Vascular: Pedal pulses are palpable DP and PT right. CFT is less than 3 seconds digits 1-5 right. Skin temperature is warm to cool from anterior knees to toes right. No varicosities right. Normal pedal hair growth right. Neuro: Light touch is intact to all quadrants of foot and ankle with no apparent sensory deficits right with attention to the surgical site. Derm: The patient is a postsurgical scar over the medial aspect of her right navicular approximately 4-5 cm in length Ortho: Muscle strength is +5/5 for all pedal groups right. Ankle joint, subtalar joint, 1st MPJ and lesser MPJ ROM's are full and without pain or crepitus right. 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 Radiographs 3 views right foot Discussed results of clinical and radiographic examination with the patient and her in detail along with treatment options. Recommend revision of the procedure with complete removal of the large excision navicular with remodeling with tendon reattachment advancement. Advised to be nonweightbearing for 4 to 6 weeks followed by progressive return to weightbearing and physical therapy. All questions were answered. No guarantees were given as to results maintain. Patient would like to proceed. We will complete scheduling. 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 - DEXCOM G7 SENSOR eduin - DEXCOM G6 TRANSMITTER eduin as directed. - cholecalciferol (VITAMIN D3) 5,000 unit tab Take 5,000 Units by mouth once daily. - escitalopram oxalate (LEXAPRO) 20 mg tablet TAKE 1/2 TABLET BY MOUTH ONCE A DAY FOR 1 WEEK THEN 1 TABLET ONCE A DAY - glipiZIDE (GLUCOTROL) 5 mg tablet - metFORMIN (GLUCOPHAGE) 500 mg tablet TAKE 1 TABLET BY MOUTH TWICE A DAY WITH MEAL - omeprazole (PRILOSEC) 20 mg capsule TAKE 1 CA (more content not included)... Normal [facility]12[facility]20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 Cathy Arnett 12/14/2024 11:58 AM Signed Spoke to patient and she elected to schedule right foot surgery with Dr. Mata for 12/31/24. Allergies As of Date: 12/12/2024 Noted Allergy Reaction SULFA (SULFONAMIDE ANTIBIOTICS) 03/29/2024 4 - Hives 2 - Rash Date Reviewed: 12/12/2024 Reviewed by: Natalia Barrios CT - Fully Assessed Reason for Visit: Surgical Followup [104] Prescriptions as of 12/14/2024 - DEXCOM G7 WIRE TECHNICIAN 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 - DEXCOM G7 SENSOR eduin - DEXCOM G6 TRANSMITTER eduin as directed. - cholecalciferol (VITAMIN D3) 5,000 unit tab Take 5,000 Units by mouth once daily. - escitalopram oxalate (LEXAPRO) 20 mg tablet TAKE 1/2 TABLET BY MOUTH ONCE A DAY FOR 1 WEEK THEN 1 TABLET ONCE A DAY - glipiZIDE (GLUCOTROL) 5 mg tablet - metFORMIN (GLUCOPHAGE) 500 mg tablet TAKE 1 TABLET BY MOUTH TWICE A DAY WITH MEAL - omeprazole (PRILOSEC) 20 mg capsule TAKE 1 CAPSULE BY MOUTH EVERY DAY for 90 - oxyCODONE-acetaminop hen (PERCOCET) 5-325 mg tablet Take 1 tablet by mouth every 6 hours as needed. - traZODone (DESYREL) 100 mg tablet TAKE 1 TABLET BY MOUTH EVERYDAY AT BEDTIME NEEDED Problem List As Of Date: 12/12/2024 (None) Encounter Status:Closed by CATHY ARNETT on 12/12/24 Normal [facility] XR FOOT 3V AP/LAT/OBL RTon 0 12-12-2024 XR FOOT 3V AP/LAT/OBL RT * * *Final Report* * * DATE OF EXAM: Dec 12 2024 9:28AM LZX 5337 - XR FOOT 3V AP/LAT/OBL RT / PROCEDURE REASON: Pain * * * * Physician Interpretation * * * * EXAMINATION / TECHNIQUE: XR FOOT 3V AP/LAT/OBL RT CLINICAL INFORMATION: Right foot pain. History of bilateral accessory navicular' s with the left one being excised earlier this year in May and the right one with attempted excision in August of this year (2023), but failed. COMPARISON: None RESULT: No fracture or joint dislocation is seen. Note is made of os naviculare and os trigonum. Small anterior and posterior calcaneal spurs. Soft tissues appear unremarkable. IMPRESSION: No fracture or joint dislocation. 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 [employer]sembl[employer]: [employer] Transcribe Date/Time: Dec 12 2024 9:37A Dictated by : LUX WILLETT MD This examination was interpreted and the report reviewed and electronically signed by: LUC AVILES MD on Dec 12 2024 11:47AM EST DIVISION OF RADIOLOGY * * *Final Report* * * DATE OF EXAM: Dec 12 2024 9:28AM LZX 5337 - XR FOOT 3V AP/LAT/OBL RT / PROCEDURE REASON: Pain * * * * Physician Interpretation * * * * EXAMINATION / TECHNIQUE: XR FOOT 3V AP/LAT/OBL RT CLINICAL INFORMATION: Right foot pain. History of bilateral accessory navicular' s with the left one being excised earlier this year in May and the right one with attempted excision in August of this year (2023), but failed. COMPARISON: None RESULT: No fracture or joint dislocation is seen. Note is made of os naviculare and os trigonum. Small anterior and posterior calcaneal spurs. Soft tissues appear unremarkable. DIVISION OF RADIOLOGY Provider, [facility] - 12/12/2024 * * *Final Report* * * DATE OF EXAM: Dec 12 2024 9:28AM LZX 5337 - XR FOOT 3V AP/LAT/OBL RT / PROCEDURE REASON: Pain * * * * Physician Interpretation * * * * EXAMINATION / TECHNIQUE: XR FOOT 3V AP/LAT/OBL RT CLINICAL INFORMATION: Right foot pain. History of bilateral accessory navicular' s with the left one being excised earlier this year in May and the right one with attempted excision in August of this year (2023), but failed. COMPARISON: None RESULT: No fracture or joint dislocation is seen. Note is made of os naviculare and os trigonum. Small anterior and posterior calcaneal spurs. Soft tissues appear unremarkable. IMPRESSION IMPRESSION: No fracture or joint dislocation. Assembler Musical Instruments: [facility] Transcribe Date/Time: Dec 12 2024 9:37A Dictated by : LUX WILLETT MD This examination was interpreted and the report reviewed and electronically signed by: LUC AVILES MD on Dec 12 2024 11:47AM EST [facility] Radiology Study observation (narrative) [facility] XR Foot - right AP and Later al and obliqueOrdered By: Ccf Provider on 12-12-2024 [facility] 36on 12-04-2024 36 Spoke with patient and let her know that per Dr. Her she can bring the disc in and he will take a look at the images and let her know. [facility] 36on 12-03-2024 36 Patient would like to know if she can get in earlier than her rescheduled appt since she had to cancel. Patient would like to drop off her MRI results sooner than her appt as well. Please advise at [phone] [facility] Telephoneon 12-03-2024 Telephone [phone] Noel Paul 1990 F Date Provider Department [place] 12/03/2024 TIMBO LONG MP ORTHO MPORTHO No family history on file Reason for Visit and Comments: Appointment [375] [facility] 36on 11-29-2024 36 LVM with patient that she will need to bring disc in. Scheduled patient for Tuesday12/03/24 at 10:30 am [facility] 36 Patient would like to know if she needs to make an appointment to bring in her MRI results or if you have received them? Supervisor Maintenance does not see them in the chart. Please advise at [phone] [facility] Office Visiton 11-26-2024 Follow-up visit [id number] oNel Paul 1990 F Date Provider Department [place] 11/26/2024 KAT VIGIL MP ORTHO MPORTHO No family history on file Level of Service:14412 RI OFFICE/OUTPATIENT NEW LOW MDM 30 MINUTES (GC) Reason for Visit and Comments: Pain [136] [facility] 36on 11-23-2024 36 LVM to confirm appt Normal [facility] Surgical Pathology Reporton 09-12-2024 Surgical Pathology Report [place] [facility] [place] [address] [place] [address]- Surgical Pathology Report Collected Date/Time: 09/05/2024 08:32 EDT Pathologist: Joon LONG PhD, Benito Piedra Received Date/Time: 09/06/2024 07:35 EDT Pato Koehler DPM, DPM, Nicholas A 07 Surgical Pathology Report - 09/12/2024 15:36 EDT [...] DIAGNOSIS. Addition of clinical information only. Normal [facility] Comment on above: Performed By: #### [id number] #### [facility] [address] [place] [address] Surgical Pathology Reporton 09-11-2024 Surgical Pathology Report [address] [place] [address]- Surgical Pathology Report Collected Date/Time: 09/05/2024 08:32 EDT Pathologist: Joon LONG PhD, Benito Piedra Received Date/Time: 09/06/2024 07:35 EDT Pato Koehler DPM, DPM, Nicholas A 07 Surgical Pathology Report - 09/11/2024 15:59 EDT [...] examination performed unless gross only specified. Normal [facility] Comment on above: Performed By: #### [id number] #### [facility] [address] [place] [address] Basic Metabolic Panelon 04-28 Creatinine Clr Calc Pharmacy 161.75 Normal [facility] Comment on above: Result Comment: PERF ORMED BY: [place] [address] PATHOLOGIST CO OP SIMEON BIGGS M.D. Performed By: #### B MP #### [place] [address] [place] GFR/1.73 sq M.predicted MDRD (S/P/Bld) [Vol rate/Area] mL/min/{1.73_m2} Normal [facility] Comment on above: Performed By: #### B MP #### [place] [id number] [place] Calcium [Mass/volume] in Ser um or PlasmaOrdered By: Sean Ruano on 05-16-2024 Calcium [Mass/Vol] 8.8 mg/dL Normal 8.6-10.3 [facility] Comment on above: Performed By: #### B MP #### [facility] [address] [place] [address] [place] Capillary blood glucose jaswinder urement by glucometer (mass/volume)Ordered By: Pato Koehler on 05-16-2024 Glucose [Mass/Vol] 106 mg/dL Normal [facility] Comment on above: Random Glucose Refer ence Range is dependent on time and content of last meal. Glucose of more than 200 mg/dL in a nonstressed, ambulatory subject supports the diagnosis of Diabetes Mellitus. Result Comment: [place] om Glucose Reference Range is dependent on time and content of last meal. Glucose of more than 200 mg/dL in a nonstressed, ambulatory subject supports the diagnosis of Diabetes Mellitus. Performed By: #### G LULS #### Point of Care testing , Carbon dioxide, total [Moles /volume] in Serum or PlasmaOrdered By: Sean Ruano on 05-16-2024 CO2 [Moles/Vol] 27.3 mmol/L Normal 21.0-31.0 [facility] Comment on above: Performed By: #### B MP #### [facility] [address] [place] [address] [place] Chloride [Moles/volume] in S nikkie or PlasmaOrdered By: Sean Ruano on 05-16-2024 Chloride [Moles/Vol] 105 mmol/L Normal 98-107 [facility] Comment on above: Performed By: #### B MP #### [facility] [address] Creatinine [Mass/volume] in Serum or PlasmaOrdered By: Sean Ruano on 05-16-2024 Creatinine [Mass/Vol] 0.66 mg/dL Normal 0.60-1.20 [facility] Comment on above: Performed By: #### B MP #### [facility] [address] Glucose Poct Glucometerson 0 05-16-2024 Commemt1 Glu2: Cleaned Meter Normal [facility] Comment on above: Result Comment: PERF ORMED BY: [facility] [address] [place] [address] PATHOLOGIST CO OP SIMEON BIGGS M.D. Performed By: #### G LULS #### Point of Care testing , Glucose [Mass/volume] in Ser um or PlasmaOrdered By: Sean Ruano on 05-16-2024 Glucose [Mass/Vol] 107 mg/dL High 70-100 [facility] Comment on above: ADA recommended refe rence rangeRandom Glucose Reference Range is dependent on time and content of last meal. Glucose of more than 200 mg/dL in a nonstressed, ambulatory subject supports the diagnosis of Diabetes Mellitus. Result Comment: [facility] Glucose Reference Range is dependent on time and content of last meal. Glucose of more than 200 mg/dL in a nonstressed, ambulatory subject supports the diagnosis of Diabetes Mellitus. ADA recommended reference range Performed By: #### B MP #### [facility] [address] HCG ( test) IA.rapi d Ql (U)Ordered By: Sean Ruano on 05-16-2024 HCG ( test) Ql (U) Negative [facility] HCG,Urineon 05-16-2024 Beta HCG ( test) Ql (U) Negative Normal [facility] Comment on above: Result Comment: PERF ORMED BY: [place] [address] PATHOLOGIST CO OP SIMEON BIGGS M.D. Performed By: #### U HCG #### [place] [id number] [facility] Jason 05-16-2024 L Specimen: [id number] Received: 05/16/24 Status: KESHA Regene Num: [id number] Spec Type: Surgical Subm Dr: Pato Koehler DPM Tissues: A Bone Fragments - Other than Path Fracture (ACCESSORY BONE LT FOOT) Procedures: HE, Gross/Micro L3, Decalcification Age/ Patient Sex Location Account Attending Physician Noel Paul 33/F [place] [id number] Pato Koehler DPM SPEC NUM: [id number] RECD: 05/16/24 STATUS: SOUT REQ NUM: [id number] BRUNO: 05/16/24- SUBM DR: Pato Koehler DPM ENTERED: 05/16/24 [facility] DR: SPEC TYPE: Surgical DEPT: [...] areas of necrosis or cysts are present. Technical Cable Jointer sections are submitted following decalcification in A1. CPT Codes 57155, 67836 Specimen: [id number] Received: 05/16/24 Status: KESHA Romo Num: [id number] Spec Type: Surgical Subm Dr: Pato Koehler DPM Tissues: A Bone Fragments - Other than Path Fracture (ACCESSORY BONE LT FOOT) Procedures: NICOLE, Gross/Micro L3, Decalcification Patient: PollophilipNoel [id number] (Continued) Signed (signature on file) Marco-Lukasz Dupree MD 05/19/24 1640 Normal [facility] No Panel InformationOrdered By: Pato Koehler on 05-16-2024 Bedside Glucose Comment Glu2: cleaned meter [facility] No Panel InformationOrdered By: Sean Ruano on 05-16-2024 Estimated GFR (CKD-EPI) > 60.0 mL/Min [facility] Creatinine Clearance (Chem 161.75 [facility] Potassium [Moles/volume] in Serum or PlasmaOrdered By: Sean Ruano on 05-16-2024 Potassium [Moles/Vol] 3.8 mmol/L Normal 3.5-5.1 [facility] Comment on above: Performed By: #### B MP #### [facility] [address] [place] [address] Serum or plasma anion gap de terminationOrdered By: Sean Ruano on 05-16-2024 Anion gap [Moles/Vol] 9.5 mmol/L Normal 6.0-15.0 [facility] Comment on above: Performed By: #### B MP #### [facility] [address] [place] [address] [place] Sodium [Moles/volume] in Ser um or PlasmaOrdered By: Sean Ruano on 05-16-2024 Sodium [Moles/Vol] 138 mmol/L Normal 136-145 [facility] Comment on above: Performed By: #### B MP #### [facility] [address] [place] [address] [place] Urea nitrogen [Mass/volume] in Serum or PlasmaOrdered By: Sean Ruano on 05-16-2024 Urea nitrogen [Mass/Vol] 17 mg/dL Normal 7-25 [facility] Comment on above: Performed By: #### B MP #### [facility] [address] [id number] [facility] XR foot LT 2Von 05-16-2024 XR foot LT 2V [facility] [address] [place] [address] [place] [address] XRay Report Signed Patient: Noel Paul MR#: [id number] : 1990 Acct:[id number] Age/Sex: 33 / F ADM Date: 05/16/24 Loc: [place] Room: Type: [facility] Attending Dr: Pato Koehler DPM Copies to: [...] Leisa Adames M.D.05/16/2024 3:20 PM Dictation Location: [place] [address] Transcribed By: [facility] 05/16/24 1520 Dictated By: Leisa Adames MD 05/16/24 1515 Signed By: 05/16/24 1520 Normal [facility] CBC w/ Auto Diffon 4 Basophils/100 WBC (Bld) 0.5 % Normal 0.0-2.0 [facility] Comment on above: Performed By: #### 2 [id number] #### [facility] [address] [place] [address] Basophils/Leukocytes Auto (Bld) [Pure # fraction] 0.1 E9/L Normal 0.0-0.2 [facility] Comment on above: Performed By: #### 2 [id number] #### [facility] [address] [place] [address] Eosinophils (Bld) [#/Vol] 0.3 E9/L Normal 0.0-0.5 [facility] Comment on above: Performed By: #### 2 [id number] #### [facility] [address] [place] [address] Eosinophils/100 WBC (Bld) 2.9 % Normal 0.0-8.0 [facility] Comment on above: Performed By: #### 2 [id number] #### [facility] [address] [place] [address] Erythrocyte distribution width (RBC) [Ratio] 15.6 % High 10.9-14.2 [facility] Comment on above: Performed By: #### 2 [id number] #### [facility] [address] [place] [address] Hematocrit (Bld) [Volume fraction] 39.9 % Normal 34.0-46.0 [facility] Comment on above: Performed By: #### 2 [id number] #### [facility] [address] [place] [address] Hemoglobin (Bld) [Mass/Vol] 12.8 g/dL Normal 12.0-16.0 [facility] Comment on above: Performed By: #### 2 [id number] #### [facility] [address] [place] [address] Lymphocytes (Bld) [#/Vol] 2.3 E9/L Normal 1.0-4.0 [facility] Comment on above: Performed By: #### 2 [id number] #### [facility] [address] [place] [address] Lymphocytes/100 WBC (Bld) 20.9 % Normal 14.0-50.0 [facility] Comment on above: Performed By: #### 2 [id number] #### [facility] [address] [place] [address] [place] [address] MCH (RBC) [Entitic mass] 25.4 pg Low 27.0-34.0 [facility] Comment on above: Performed By: #### 2 [id number] #### [facility] [address] [place] [address] MCHC (RBC) [Mass/Vol] 32.2 g/dL Normal 31.4-36.0 [facility] Comment on above: Performed By: #### 2 [id number] #### [facility] [address] [place] [address] MCV (RBC) [Entitic vol] 79.0 fL Low 80.0-100.0 F [facility] Comment on above: Performed By: #### 2 [id number] #### [facility] [address] [place] [address] Monocytes (Bld) [#/Vol] 0.7 E9/L Normal 0.2-1.0 [facility] Comment on above: Performed By: #### 2 [id number] #### [facility] [address] [place] [address] Neutrophils (Bld) [#/Vol] 7.7 E9/L High 2.0-7.5 [facility] Comment on above: Performed By: #### 2 [id number] #### [facility] [address] [place] [address] Neutrophils/100 WBC (Bld) 69.3 % Normal 36.0-75.0 [facility] Comment on above: Performed By: #### 2 [id number] #### [facility] [address] [place] [address] Platelet mean volume (Bld) [Entitic vol] 8.3 fL Normal 6.4-10.8 [facility] Comment on above: Performed By: #### 2 [id number] #### [facility] [address] [place] [address] Platelets (Bld) [#/Vol] 346.0 E9/L Normal 150.0-500.0 [facility] Comment on above: Performed By: #### 2 [id number] #### [facility] [address] [place] [address] RBC (Bld) [#/Vol] 5.1 E12/L Normal 4.3-5.9 [facility] Comment on above: Performed By: #### 2 [id number] #### [facility] [address] [place] [address] WBC corrected for nucl RBC Auto (Bld) [#/Vol] 11.1 E9/L High 4.0-11.0 [facility] Comment on above: Performed By: #### 2 [id number] #### [facility] [address] [place] [address] Consent for Treatmenton 03-29 Consent for Treatment [id number] #1.00TIFF Normal [facility] HEMATOLOGYOrdered By: SYSTEM SYSTEM on 04-25-2024 [...] Remisol Heme Physician Orderon 04-18-2024 Physician Order [id number] #1.00TIFF Normal [facility] XR shoulder RT min 2V*on XR shoulder RT min 2V* [facility] [address] XRay Report Signed Patient: Noel Paul MR#: [id number] : 1990 Acct:[id number] Age/Sex: 33 / F ADM Date: 02/27/24 [facility] Attending Dr: Monique SANDOVAL Copies to: [...] Leisa Adames M.D.02/27/2024 6:14 PM Dictation Location: [place] [address] Transcribed By: DANIELLE 02/27/241813 Dictated By: Leisa Adames MD 02/27/241812 Signed By: 02/27/241813 Normal [facility] GLYCOHEMOGLOBIN A1Con 2022 ADA RECOMMENDATION SEE BELOW Normal [facility] Comment on above: Result Comment: ADA RECOMMENDED LIMIT 4.0 - 6.0 ADA THERAPEUTIC TARGET < 7.0 ACTION SUGGESTED > 7.0 Performed By: #### A 1C #### [facility] [address] [address] [address] Benito Dupree Glucose [Mass/Vol] 105 mg/dL Normal [facility] Comment on above: Performed By: #### A 1C #### [facility] [address] [address] [address] Benito Dupree HbA1c (Bld) [Mass fraction] 5.3 % Normal 4.5-6.2 [facility] Comment on above: Performed By: #### A 1C #### [facility] [address] [address] [address] Benito Dupree Covid-19 PCR ([facility])on SARS-CoV-2 (COVID-19) RNA MUKUND+probe Ql (Unsp spec) Not detected Normal NOT DETECTED [facility] Comment on above: Result Comment: This test is not yet approved or cleared by the [place] FDA. When there are no FDA-approved or cleared tests available, and other criteria are met, FDA can make tests available under an emergency access mechanism called an Emergency Use Authorization (EUA). The EUA for this test is supported by the [place] of Health and Human Service's (HHS's) declaration [...] SARS-CoV-2. Performed By: #### C VDTB #### [facility] [address] [place] [address] Dr. Benito Dupree INFLUENZA A AND B AGon 01-05 [facility] SEE BELOW Normal [facility] Comment on above: Result Comment: Nega tive for Flu A protein angiten. Infection due to Flu A cannot be ruled out. Flu A angiten in the sample may be below the detection limit of the test. Performed By: #### I NFLUAB #### [facility] [address] [place] [address] Dr. Benito Dupree [facility] SEE BELOW Normal [facility] Comment on above: Result Comment: Nega tive for Flu B protein antigen. Infection due to Flu B cannot be ruled out. Flu B antigen in the sample may be below the detection limit of the test. Performed By: #### I NFLUAB #### [facility] [address] [place] [address] Dr. Benito Dupree INFLUENZA A AG Negative Normal NEGATIVE SEE COMMENT [facility] Comment on above: Performed By: #### I NFLUAB #### [facility] [address] [place] [address] Dr. Benito Dupree INFLUENZA B AG Negative Normal NEGATIVE SEE COMMENT [facility] Comment on above: Performed By: #### I NFLUAB #### [facility] [address] [address] [address] Benito Dupree GLYCOHEMOGLOBIN A1Con 2021 ADA RECOMMENDATION SEE BELOW Normal [facility] Comment on above: Result Comment: ADA RECOMMENDED LIMIT 4.0 - 6.0 ADA THERAPEUTIC TARGET < 7.0 ACTION SUGGESTED > 7.0 Performed By: #### A 1C #### [facility] [address] [place] [address] Dr. Benito Dupree Glucose [Mass/Vol] 143 mg/dL Normal [facility] Comment on above: Performed By: #### A 1C #### [facility] [address] [place] [address] Dr. Benito Dupree HbA1c (Bld) [Mass fraction] 6.6 % Critically high 4.5-6.2 [facility] Comment on above: Performed By: #### A 1C #### [facility] [address] [place] [address] Dr. Benito Dupree LIPID PROFILEon 11-15-2022 CHOL-HDL RATIO NORM SEE BELOW Normal [facility] Comment on above: Result Comment: 3.3 - 4.4 LOW RISK 4.4 - 7.1 AVERAGE RISK 7.1 - 11.0 MODERATE RISK >11.0 HIGH RISK Performed By: #### I NFLUAB #### [facility] [address] [place] [address] Dr. Benito Dupree Cholesterol [Mass/Vol] 154 mg/dL Normal <=200 [facility] Comment on above: Performed By: #### I NFLUAB #### [facility] [address] [place] [address] Dr. Benito Dupree Cholesterol in HDL [Mass/Vol] 29 mg/dL Critically low 40-60 [facility] Comment on above: Performed By: #### I NFLUAB #### [facility] [address] [place] [address] Dr. Benito Dupree Cholesterol in LDL [Mass/Vol] 98.2 mg/dL Normal [facility] Comment on above: Performed By: #### I NFLUAB #### [facility] [address] [place] [address] Dr. Benito Dupree Cholesterol.total/Lisandra sterol in HDL [Mass ratio] 5.3 {ratio} Normal [facility] Comment on above: Performed By: #### I NFLUAB #### [facility] [address] [address] [address] Benito Dupree HDL NORMAL > or = 60 mg/dl - LOW CARDIOVASCULAR RISK <40 mg/dl - HIGH CARDIOVASCULAR RISK Normal [facility] Comment on above: Performed By: #### I NFLUAB #### [facility] [address] [address] [address] Benito Dupree LDL CALC NORMAL SEE BELOW Normal [facility] Comment on above: Result Comment: <100 mg/dl OPTIMAL 100 - 129 mg/dl NEAR OR ABOVE OPTIMAL 130 - 159 mg/dl BORDERLINE HIGH 160 - 189 mg/dl HIGH >190 mg/dl VERY HIGH Performed By: #### I NFLUAB #### [facility] [address] [address] [address] Benito Dupree Triglyceride [Mass/Vol] 134 mg/dL Normal <=150 [facility] Comment on above: Performed By: #### I NFLUAB #### [facility] [address] [address] [address] Benito Dupree VLDL CALC 26.8 mg/dL Normal [facility] Comment on above: Performed By: #### I NFLUAB #### [facility] [address] [address] [address] Benito Dupree INSULINon 08-19-2022 Insulin 24.3 uIU/mL Normal 2.6-24.9 [facility] Comment on above: Performed By: #### I NFLUAB #### [facility] [address] [address] [address] Benito Dupree T4, T3U, FTI LABCORPon 08-19 Free Thyroxine Index 2.6 Normal 1.2-4.9 [facility] Comment on above: Performed By: #### T HYLC #### [facility] [address] [address] [address] Benito Dupree T3 Uptake 29 % Normal 24-39 [facility] Comment on above: Performed By: #### T HYLC #### [facility] [address] [place] [address] Dr. Benito Dupree T4 [Mass/Vol] 8.8 ug/dL Normal 4.5-12.0 [facility] Comment on above: Performed By: #### T HYLC #### [facility] [address] [place] [address] Dr. Benito Dupree CBC AUTO DIFFon 08-18-2022 BASO # 0.1 103/ul Normal 0.0-0.1 [facility] Comment on above: Performed By: #### I NFLUAB #### [facility] [address] [place] [address] Dr. Benito Dupree Basophils/100 WBC (Bld) 0.8 % Normal 0.2-2.0 [facility] Comment on above: Performed By: #### I NFLUAB #### [facility] [address] [place] [address] Dr. Benito Dupree EO # 0.3 103/ul Normal 0.0-0.7 [facility] Comment on above: Performed By: #### I NFLUAB #### [facility] [address] [place] [address] Dr. Benito Dupree Eosinophils/100 WBC (Bld) 2.8 % Normal 0.9-7.0 [facility] Comment on above: Performed By: #### I NFLUAB #### [facility] [address] [place] [address] Dr. Benito Dupree Erythrocyte distribution width (RBC) [Ratio] 15.4 % Critically high 11.0-15.0 [facility] Comment on above: Performed By: #### I NFLUAB #### [facility] [address] [place] [address] Dr. Benito Dupree Hematocrit (Bld) [Volume fraction] 43.7 % Normal 36.0-48.0 [facility] Comment on above: Performed By: #### I NFLUAB #### [facility] [address] [place] [address] Dr. Benito Dupree Hemoglobin (Bld) [Mass/Vol] 14.2 g/dL Normal 12.0-16.0 [facility] Comment on above: Performed By: #### I NFLUAB #### [facility] [address] [place] [address] Dr. Benito Dupree IG # 0.08 10e3/ul Critically high 0.00-0.03 [facility] Comment on above: Performed By: #### I NFLUAB #### [facility] [address] [place] [address] Dr. Benito Dupree IG % 0.9 % Critically high 0.0-0.5 [facility] Comment on above: Performed By: #### I NFLUAB #### [facility] [address] [place] [address] Dr. Benito Dupree LYMPH # 2.3 103/ul Normal 1.2-3.8 [facility] Comment on above: Performed By: #### I NFLUAB #### [facility] [address] [place] [address] Dr. Benito Dupree Lymphocytes/100 WBC (Bld) 24.3 % Normal 20.5-60.0 [facility] Comment on above: Performed By: #### I NFLUAB #### [facility] [address] [place] [address] Dr. Benito Dupree MANUAL DIFF REQ NO Normal [facility] Comment on above: Performed By: #### I NFLUAB #### [facility] [address] [place] [address] Dr. Benito Dupree MCH (RBC) [Entitic mass] 26.1 pg Critically low 26.7-34.0 [facility] Comment on above: Performed By: #### I NFLUAB #### [facility] [address] [place] [address] Dr. Benito Dupree MCHC (RBC) [Mass/Vol] 32.5 g/dL Normal 29.9-35.2 [facility] Comment on above: Performed By: #### I NFLUAB #### [facility] [address] [place] [address] Dr. Benito Dupree MCV (RBC) [Entitic vol] 80.2 fL Critically low 81.0-99. 0 [facility] Comment on above: Performed By: #### I NFLUAB #### [facility] [address] [place] [address] Dr. Benito Dupree MONO # 0.5 103/ul Normal 0.3-0.8 [facility] Comment on above: Performed By: #### I NFLUAB #### [facility] [address] [place] [address] Dr. Benito Dupree Monocytes/100 WBC (Bld) 5.2 % Normal 1.7-12.0 [facility] Comment on above: Performed By: #### I NFLUAB #### [facility] [address] [place] [address] Dr. Benito Dupree NEUT # 6.1 103/ul Normal 1.4-6.5 [facility] Comment on above: Performed By: #### I NFLUAB #### [facility] [address] [place] [address] Dr. Benito Dupree Neutrophils/100 WBC (Bld) 66.0 % Normal 43.0-75.0 [facility] Comment on above: Performed By: #### I NFLUAB #### [facility] [address] [place] [address] Dr. Benito Dupree Platelet mean volume (Bld) [Entitic vol] 9.9 fL Normal 9.5-13.5 [facility] Comment on above: Performed By: #### I NFLUAB #### [facility] [address] [place] [address] Dr. Benito Dupree PLT 291 103/ul Normal 150-450 [facility] Comment on above: Performed By: #### I NFLUAB #### [facility] [address] [place] [address] Dr. Benito Dupree RBC 5.45 106/ul Critically high 4.20-5.40 [facility] Comment on above: Performed By: #### I NFLUAB #### [facility] [address] [place], [place] [address] Dr. Benito Dupree WBC 9.3 103/ul Normal 4.0-11.0 [facility] Comment on above: Performed By: #### I NFLUAB #### [facility] [address] [place] [address] Dr. Benito Dupree DIRECT LDLon 08-18-2022 Cholesterol in LDL [Mass/Vol] 50 mg/dL Normal [facility] Comment on above: Performed By: #### T HYLC #### [facility] [address] [place] [address] Dr. Benito Dupree DLDL NORMAL SEE BELOW Normal [facility] Comment on above: Result Comment: <100 mg/dl OPTIMAL 100 - 129 mg/dl NEAR OR ABOVE OPTIMAL 130 - 159 mg/dl BORDERLINE HIGH 160 - 189 mg/dl HIGH >190 mg/dl VERY HIGH Performed By: #### T HYLC #### [facility] [address] [place] [address] Dr. Benito Dupree GLYCOHEMOGLOBIN A1Con 2021 ADA RECOMMENDATION SEE BELOW Normal [facility] Comment on above: Result Comment: ADA RECOMMENDED LIMIT 4.0 - 6.0 ADA THERAPEUTIC TARGET < 7.0 ACTION SUGGESTED > 7.0 Performed By: #### A 1C #### [facility] [address] [place] [address] Dr. Benito Dupree Glucose [Mass/Vol] 332 mg/dL Normal [facility] Comment on above: Performed By: #### A 1C #### [facility] [address] [place] [address] Dr. Benito Dupree HbA1c (Bld) [Mass fraction] 13.2 % Critically high 4.5-6.2 [facility] Comment on above: Performed By: #### A 1C #### [facility] [address] [place] [address] Dr. Benito Dupree IRONon 08-18-2022 Iron [Mass/Vol] 53.0 ug/dL Normal 50.0-170.0 [facility] Comment on above: Performed By: #### I NFLUAB #### [facility] [address] [place] [address] Dr. Benito Dupree LIPID PROFILEon 08-18-2022 CHOL-HDL RATIO NORM SEE BELOW Normal [facility] Comment on above: Result Comment: 3.3 - 4.4 LOW RISK 4.4 - 7.1 AVERAGE RISK 7.1 - 11.0 MODERATE RISK >11.0 HIGH RISK Performed By: #### T HYLC #### [facility] [address] [address] [address] Benito Dupree Cholesterol [Mass/Vol] 260 mg/dL Critically high <=200 [facility] Comment on above: Performed By: #### T HYLC #### [facility] [address] [address] [address] Benito Dupree Cholesterol in HDL [Mass/Vol] 23 mg/dL Critically low 40-60 [facility] Comment on above: Performed By: #### T HYLC #### [facility] [address] [address] [address] Benito Dupree Cholesterol.total/Lisandra sterol in HDL [Mass ratio] 11.3 {ratio} Normal [facility] Comment on above: Performed By: #### T HYLC #### [facility] [address] [address] [address] Benito Dupree HDL NORMAL > or = 60 mg/dl - LOW CARDIOVASCULAR RISK <40 mg/dl - HIGH CARDIOVASCULAR RISK Normal [facility] Comment on above: Performed By: #### T HYLC #### [facility] [address] [address] [address] Benito Dupree Triglyceride [Mass/Vol] 1711 mg/dL Critically high <=150 [facility] Comment on above: Performed By: #### T HYLC #### [facility] [address] [address] [address] Benito Dupree VLDL CALC 342.2 mg/dL Normal [facility] Comment on above: Performed By: #### T HYLC #### [facility] [address] [address] [address] Benito Dupree PROF 14(COMP METB)on 022 Albumin [Mass/Vol] 3.2 g/dL Critically low 3.4-5.0 [facility] Comment on above: Performed By: #### T HYLC #### [facility] [address] [address] [address] Benito Dupree Albumin/Globulin [Mass ratio] 0.7 {ratio} Normal [facility] Comment on above: Performed By: #### T HYLC #### [facility] [address] [address] [address] Benito Dupree ALP [Catalytic activity/Vol] 92 U/L Normal 46-116 [facility] Comment on above: Performed By: #### T HYLC #### [facility] [address] [address] [address] Benito Dupree ALT [Catalytic activity/Vol] 41 U/L Normal 14-59 [facility] Comment on above: Performed By: #### T HYLC #### [facility] [address] [place] [address] Dr. Benito Dupree Anion gap [Moles/Vol] 14.1 mmol/L Normal [facility] Comment on above: Performed By: #### T HYLC #### [facility] [address] [address] [address] Benito Dupree AST [Catalytic activity/Vol] 16 U/L Normal 15-37 [facility] Comment on above: Performed By: #### T HYLC #### [facility] [address] [place] [address] Dr. Benito Dupree Bilirubin [Mass/Vol] 0.9 mg/dL Normal 0.2-1.0 [facility] Comment on above: Performed By: #### T HYLC #### [facility] [address] [place] [address] Dr. Benito Dupree Calcium [Mass/Vol] 9.1 mg/dL Normal 8.5-10.1 [facility] Comment on above: Performed By: #### T HYLC #### [facility] [address] [address] [address] Benito Dupree Chloride [Moles/Vol] 97 mmol/L Critically low 98-107 [facility] Comment on above: Performed By: #### T HYLC #### [facility] [address] [address] [address] Benito Dupree CO2 [Moles/Vol] 24.9 mmol/L Normal 21.0-32.0 [facility] Comment on above: Performed By: #### T HYLC #### [facility] [address] [address] [address] Benito Durpee Creatinine [Mass/Vol] 0.67 mg/dL Normal 0.55-1.02 [facility] Comment on above: Performed By: #### T HYLC #### [facility] [address] [address] [address] Benito Dupree EGFR-AF J[place] >60 Normal >=60 [facility] Comment on above: Performed By: #### T HYLC #### [facility] [address] [place] [address] Dr. Benito Dupree EGFR-NON AF JAMAICAN >60 Normal >=60 [facility] Comment on above: Performed By: #### T HYLC #### [facility] [address] [address] [address] Benito Dupree Globulin (S) [Mass/Vol] 4.6 g/dL Normal [facility] Comment on above: Performed By: #### T HYLC #### [facility] [address] [place] [address] Dr. Benito Dupree Glucose [Mass/Vol] 402 mg/dL Critically high 74-106 [facility] Comment on above: Performed By: #### T HYLC #### [facility] [address] [place] [address] Dr. Benito Dupree Potassium [Moles/Vol] 4.0 mmol/L Normal 3.5-5.1 [facility] Comment on above: Performed By: #### T HYLC #### [facility] [address] [place] [address] Dr. Benito Dupree Protein [Mass/Vol] 7.8 g/dL Normal 6.4-8.2 [facility] Comment on above: Performed By: #### T HYLC #### [facility] [address] [place] [address] Dr. Benito Dupree Sodium [Moles/Vol] 132 mmol/L Critically low 136-145 [facility] Comment on above: Performed By: #### T HYLC #### [facility] [address] [place] [address] Dr. Benito Dupree Urea nitrogen [Mass/Vol] 10.0 mg/dL Normal 7.0-18.0 [facility] Comment on above: Performed By: #### T HYLC #### [facility] [address] [place] [address] Dr. Benito Dupree Urea nitrogen/Creatinine [Mass ratio] 14.9 mg/mg Normal [facility] Comment on above: Performed By: #### T HYLC #### [facility] [address] [place] [address] Dr. Benito Dupree TSHon 08-18-2022 TSH 3.676 uIU/mL Normal 0.358-3.740 [facility] Comment on above: Performed By: #### T HYLC #### [facility] [address] [place] [address] Dr. Benito Dupree VITAMIN D 25 OHon 08-18-2022 VIT D 25-OH 13.9 ng/mL Normal [facility] Comment on above: Performed By: #### I NFLUAB #### [facility] [address] [place] [address] Dr. Benito Dupree VIT D RANGES SEE BELOW Normal [facility] Comment on above: Result Comment: <20 ng/mL Vit D deficient 20 - <30 ng/mL Vit D insufficient 30 - 100 ng/mL Vit D sufficient >100 ng/mL Potential Toxicity Performed By: #### I NFLUAB #### [facility] [address] [place] [address] Dr. Benito Dupree AMYLASEon 06-01-2022 Amylase [Catalytic activity/Vol] 29 U/L Normal 25-115 [facility] Comment on above: Performed By: #### I NFLUAB #### [facility] [address] [place] [address] Dr. Benito Dupree CBC AUTO DIFFon 06-01-2022 BASO # 0.1 103/ul Normal 0.0-0.1 [facility] Comment on above: Performed By: #### I NFLUAB #### [facility] [address] [place] [address] Dr. Benito Dupree Basophils/100 WBC (Bld) 0.5 % Normal 0.2-2.0 [facility] Comment on above: Performed By: #### I NFLUAB #### [facility] [address] [place] [address] Dr. Benito Dupree EO # 0.3 103/ul Normal 0.0-0.7 [facility] Comment on above: Performed By: #### I NFLUAB #### [facility] [address] [place] [address] Dr. Benito Dupree Eosinophils/100 WBC (Bld) 2.0 % Normal 0.9-7.0 [facility] Comment on above: Performed By: #### I NFLUAB #### [facility] [address] [place] [address] Dr. Benito Dupree Erythrocyte distribution width (RBC) [Ratio] 15.3 % Critically high 11.0-15.0 [facility] Comment on above: Performed By: #### I NFLUAB #### [facility] [address] [place] [address] Dr. Benito Dupree Hematocrit (Bld) [Volume fraction] 41.5 % Normal 36.0-48.0 [facility] Comment on above: Performed By: #### I NFLUAB #### [facility] [address] [place] [address] Dr. Benito Dupree Hemoglobin (Bld) [Mass/Vol] 12.7 g/dL Normal 12.0-16.0 [facility] Comment on above: Performed By: #### I NFLUAB #### [facility] [address] [place] [address] Dr. Benito Dupree IG # 0.06 10e3/ul Critically high 0.00-0.03 [facility] Comment on above: Performed By: #### I NFLUAB #### [facility] [address] [address] [address] Benito Dupree IG % 0.4 % Normal 0.0-0.5 [facility] Comment on above: Performed By: #### I NFLUAB #### [facility] [address] [address] [address] Benito Dupree LYMPH # 1.9 103/ul Normal 1.2-3.8 [facility] Comment on above: Performed By: #### I NFLUAB #### [facility] [address] [address] [address] Benito Dupree Lymphocytes/100 WBC (Bld) 13.9 % Critically low 20.5-60.0 [facility] Comment on above: Performed By: #### I NFLUAB #### [facility] [address] [place] [address] Dr. Benito Dupree MANUAL DIFF REQ NO Normal [facility] Comment on above: Performed By: #### I NFLUAB #### [facility] [address] [place] [address] Dr. Benito Dupree MCH (RBC) [Entitic mass] 24.7 pg Critically low 26.7-34.0 [facility] Comment on above: Performed By: #### I NFLUAB #### [facility] [address] [place] [address] Dr. Benito Dupree MCHC (RBC) [Mass/Vol] 30.6 g/dL Normal 29.9-35.2 [facility] Comment on above: Performed By: #### I NFLUAB #### [facility] [address] [place] [address] Dr. Benito Dupree MCV (RBC) [Entitic vol] 80.6 fL Critically low 81.0-99. 0 [facility] Comment on above: Performed By: #### I NFLUAB #### [facility] [address] [place] [address] Dr. Benito Dupree MONO # 0.5 103/ul Normal 0.3-0.8 [facility] Comment on above: Performed By: #### I NFLUAB #### [facility] [address] [address] [address] Benito Dupree Monocytes/100 WBC (Bld) 4.0 % Normal 1.7-12.0 [facility] Comment on above: Performed By: #### I NFLUAB #### [facility] [address] [place] [address] Dr. Benito Dupree NEUT # 10.6 103/ul Critically high 1.4-6.5 [facility] Comment on above: Performed By: #### I NFLUAB #### [facility] [address] [place] [address] Dr. Benito Dupree Neutrophils/100 WBC (Bld) 79.2 % Critically high 43.0-75.0 [facility] Comment on above: Performed By: #### I NFLUAB #### [facility] [address] [place] [address] Dr. Benito Dupree Platelet mean volume (Bld) [Entitic vol] 9.3 fL Critically low 9.5-13.5 [facility] Comment on above: Performed By: #### I NFLUAB #### [facility] [address] [place] [address] Dr. Benito Dupree PLT 391 103/ul Normal 150-450 [facility] Comment on above: Performed By: #### I NFLUAB #### [facility] [address] [place] [address] Dr. Benito Dupree RBC 5.15 106/ul Normal 4.20-5.40 [facility] Comment on above: Performed By: #### I NFLUAB #### [facility] [address] [place] [address] Dr. Benito Dupree WBC 13.4 103/ul Critically high 4.0-11.0 [facility] Comment on above: Performed By: #### I NFLUAB #### [facility] [address] [place] [address] ABD/PELV W CONon [...] WESTLEY JHA Date: 2022-06-01 14:59 Normal [facility] URINE PROFILEon 2 Bilirubin Ql (U) Negative Normal NEGATIVE [facility] Comment on above: Performed By: #### U MICRO, ERUR #### [facility] [address] [address] [address] Benito Dupree Clarity (U) SL CLOUDY Abnormal CLEAR [facility] Comment on above: Performed By: #### U MICRO, ERUR #### [facility] [address] [address] [address] Benito Dupree Color (U) YELLOW Normal YELLOW [facility] Comment on above: Performed By: #### U MICRO, ERUR #### [facility] [address] [place] [address] Dr. Benito Dupree ERUAHD A micrscopic examination will be performed if indicated. Normal [facility] Comment on above: Performed By: #### U MICRO, ERUR #### [facility] [address] [address] [address] Benito Dupree Glucose Ql (U) Negative Normal NEGATIVE [place] Comment on above: Performed By: #### U MICRO, ERUR #### [facility] [address] [address] [address] Benito Dupree Hemoglobin Ql (U) LARGE Abnormal NEGATIVE [facility] Comment on above: Performed By: #### U MICRO, ERUR #### [facility] [address] [address] [address] Benito Dupree Ketones Ql (U) Negative Normal NEGATIVE [facility] Comment on above: Performed By: #### U MICRO, ERUR #### [facility] [address] [place] [address] Dr. Benito Dupree LEUKOCYTES Negative Normal NEGATIVE [facility] Comment on above: Performed By: #### U MICRO, ERUR #### [facility] [address] [address] [address] Benito Dupree Nitrite Ql (U) Negative Normal NEGATIVE [facility] Comment on above: Performed By: #### U MICRO, ERUR #### [facility] [address] [place] [address] Dr. Benito Dupree pH (U) 5.5 [pH] Normal 5-9 [facility] Comment on above: Performed By: #### U MICRO, ERUR #### [facility] [address] [address] [address] Benito Dupree SPEC GRAVITY 1.010 Normal 1.005-<=1.02 5 [facility] Comment on above: Performed By: #### U MICRO, ERUR #### [facility] [address] [address] [address] Benito Dupree UA PROTEIN TRACE Normal NEGATIVE/ TRACE [facility] Comment on above: Performed By: #### U MICRO, ERUR #### [facility] [address] [place] [address] Dr. Benito Dupree UR MICRO IND INDICATED Normal [facility] Comment on above: Performed By: #### U MICRO, ERUR #### [facility] [address] [place] [address] Dr. Benito Dupree Urobilinogen Qn (U) 1.0 {Tuyet'U}/dL Normal 0.2 - 1. 0 [facility] Comment on above: Performed By: #### U MICRO, ERUR #### [facility] [address] [place] [address] Dr. Benito Dupree LACTATE/LACTIC ACIDon 2021 Lactate [Moles/Vol] 1.1 mmol/L Normal 0.4-1.9 [facility] Comment on above: Performed By: #### L ACT #### [facility] [address] [place] [address] Dr. Benito Dupree LIPASEon 06-01-2022 Lipase [Catalytic activity/Vol] 111.0 U/L Normal 73.0-393.0 [facility] Comment on above: Performed By: #### I NFLUAB #### [facility] [address] [place] [address] Dr. Benito Dupree PREG HCG QUALon 06-01-2022 , QUAL Negative Normal NEGATIVE [facility] Comment on above: Performed By: #### P REG #### [facility] [address] [place] [address] Dr. Benito Dupree PROF 14(COMP METB)on 022 Albumin [Mass/Vol] 3.6 g/dL Normal 3.4-5.0 [facility] Comment on above: Performed By: #### I NFLUAB #### [facility] [address] [place] [address] Dr. Benito Dupree Albumin/Globulin [Mass ratio] 0.7 {ratio} Normal [facility] Comment on above: Performed By: #### I NFLUAB #### [facility] [address] [place] [address] Dr. Benito Dupree ALP [Catalytic activity/Vol] 90 U/L Normal 46-116 [facility] Comment on above: Performed By: #### I NFLUAB #### [facility] [address] [address] [address] Benito Dupree ALT [Catalytic activity/Vol] 39 U/L Normal 14-59 [facility] Comment on above: Performed By: #### I NFLUAB #### [facility] [address] [address] [address] Benito Dupree Anion gap [Moles/Vol] 13.0 mmol/L Normal [facility] Comment on above: Performed By: #### I NFLUAB #### [facility] [address] [address] [address] Benito Dupree AST [Catalytic activity/Vol] 25 U/L Normal 15-37 [facility] Comment on above: Performed By: #### I NFLUAB #### [facility] [address] [address] [address] Benito Dupree Bilirubin [Mass/Vol] 1.1 mg/dL Critically high 0.2-1.0 [facility] Comment on above: Performed By: #### I NFLUAB #### [facility] [address] [place] [address] Dr. Benito Dupree Calcium [Mass/Vol] 9.4 mg/dL Normal 8.5-10.1 [facility] Comment on above: Performed By: #### I NFLUAB #### [facility] [address] [address] [address] Benito Dupree Chloride [Moles/Vol] 99 mmol/L Normal 98-107 [facility] Comment on above: Performed By: #### I NFLUAB #### [facility] [address] [place] [address] Dr. Benito Dupree CO2 [Moles/Vol] 27.3 mmol/L Normal 21.0-32.0 [facility] Comment on above: Performed By: #### I NFLUAB #### [facility] [address] [address] [address] Benito Dupree Creatinine [Mass/Vol] 0.87 mg/dL Normal 0.55-1.02 [facility] Comment on above: Performed By: #### I NFLUAB #### [facility] [address] [place] [address] Dr. Benito Dupree EGFR-AF JAMAICAN >60 Normal >=60 [facility] Comment on above: Performed By: #### I NFLUAB #### [facility] [address] [place] [address] Dr. Benito Dupree EGFR-NON AF JAMAICAN >60 Normal >=60 [facility] Comment on above: Performed By: #### I NFLUAB #### [facility] [address] [address] [address] Benito Dupree Globulin (S) [Mass/Vol] 4.8 g/dL Normal [facility] Comment on above: Performed By: #### I NFLUAB #### [facility] [address] [place] [address] Dr. Benito Dupree Glucose [Mass/Vol] 218 mg/dL Critically high 74-106 [facility] Comment on above: Performed By: #### I NFLUAB #### [facility] [address] [place] [address] Dr. Benito Dupree Potassium [Moles/Vol] 4.1 mmol/L Normal 3.5-5.1 [facility] Comment on above: Performed By: #### I NFLUAB #### [facility] [address] [place] [address] Dr. Benito Dupree Protein [Mass/Vol] 8.4 g/dL Critically high 6.4-8.2 [facility] Comment on above: Performed By: #### I NFLUAB #### [facility] [address] [place] [address] Dr. Benito Dupree Sodium [Moles/Vol] 135 mmol/L Critically low 136-145 [facility] Comment on above: Performed By: #### I NFLUAB #### [facility] [address] [place] [address] Dr. Benito Dupree Urea nitrogen [Mass/Vol] 15.0 mg/dL Normal 7.0-18.0 [facility] Comment on above: Performed By: #### I NFLUAB #### [facility] [address] [address] [address] Benito Dupree Urea nitrogen/Creatinine [Mass ratio] 17.2 mg/mg Normal [facility] Comment on above: Performed By: #### I NFLUAB #### [facility] [address] [place] [address] Dr. Benito Dupree URINE MICROSCOPIC ONLYon BACTERIA TRACE Abnormal NONE SEEN [facility] Comment on above: Performed By: #### U MICRO, ERUR #### [facility] [address] [place] [address] Dr. Benito Dupree Bacteria identified Cx Nom (U) NOT INDICATED Normal [facility] Comment on above: Performed By: #### U MICRO, ERUR #### [facility] [address] [place] [address] Dr. Benito Dupree CAST NONE SEEN Normal NONE SEEN [facility] Comment on above: Performed By: #### U MICRO, ERUR #### [facility] [address] [place] [address] Dr. Benito Dupree Crystals LM Nom (Urine sed) NONE SEEN Normal NONE SEEN [facility] Comment on above: Performed By: #### U MICRO, ERUR #### [facility] [address] [place] [address] Dr. Benito Dupree Epithelial cells LM Ql (Urine sed) MODERATE Abnormal NONE SEEN /RARE [facility] Comment on above: Performed By: #### U MICRO, ERUR #### [facility] [address] [place] [address] Dr. Benito Dupree MUCOUS TRACE Abnormal NONE SEEN [facility] Comment on above: Performed By: #### U MICRO, ERUR #### [facility] [address] [place] [address] Dr. Benito Dupree RBC 2-5 Abnormal 0-2 [facility] Comment on above: Performed By: #### U MICRO, ERUR #### [facility] [address] [place] [address] Dr. Benito Dupree WBC 0-2 Abnormal NONE SEEN [facility] Comment on above: Performed By: #### U MICRO, ERUR #### [facility] [address] [address] [address] Benito Dupree XR hand RT min 3V*on 022 XR hand RT min 3V* [facility] Other XR hand RT min 3V* [facility] [employer] Other XR hand RT min 3V* [address] [place] [address] [facility] Other XR hand RT min 3V* [place] [address] [facility] Other XR hand RT min 3V* XRay Report [facility] Other XR hand RT min 3V* Signed [facility] Other XR hand RT min 3V* Patient: Noel Paul MR#: [id number] [facility] Other XR hand RT min 3V* : 1990 Acct:[id number] [facility] Other XR hand RT min 3V* Age/Sex: 31 / F ADM Date: 03/22/22 [facility] Other XR hand RT min 3V* [facility] Other XR hand RT min 3V* Attending Dr: Monique SANDOVAL [facility] Other XR hand RT min 3V* Ordering Provider: LORI Dias [facility] Other XR hand RT min 3V* Date of Service: 03/22/22 [facility] Other XR hand RT min 3V* XR/XR hand RT min 3V*: Finger pain, right [facility] Other XR hand RT min 3V* Copies to: LORI Dias [facility] Other XR hand RT min 3V* 3 viewsRIGHT hand plain film [facility] Other XR hand RT min 3V* COMPARISON:None [employer] Other XR hand RT min 3V* HISTORY:Fell going upstairs. RIGHT ring finger injury. [facility] Other XR hand RT min 3V* No fracture, dislocation or focal soft tissue abnormality seen. [facility] Other XR hand RT min 3V* XR/XR hand RT min 3V* [facility] Other XR hand RT min 3V* IMPRESSION:No acute findings [facility] Other XR hand RT min 3V* Impression dictated by: Ta Galvan M.D.03/22/2022 4:42 PM [facility] Other XR hand RT min 3V* Dictation Location: [place] [address] [facility] Other XR hand RT min 3V* Transcribed By: [facility] 03/22/22 [facility] Other XR hand RT min 3V* Dictated By: Ta Galvan DO 03/22/22 [facility] Other XR hand RT min 3V* Signed By: [facility] Other XR hand RT min 3V* 03/22/[address] [place] [address] [employer] Other Vital Signs Date Time Vital Sign Value Performing Clinician Facility 10-24-2024 14:24-0500 Body height 157.5 cm Pato Koehler [facility] Work Phone: [facility] 10-24-2024 14:24-0500 Body mass index (BMI) [Ratio] 56.7 kg/m2 Pato Koehler [facility] Work Phone: [facility] 10-24-2024 14:24-0500 Body weight 140.62 kg Pato Brown DPM Work Phone: [facility] 10-24-2024 14:24-0500 Respiratory rate 18 /min Pato Koehler DPM Work Phone: [facility] 10-04-2024 14:48-0500 Body height 157.5 cm Pato Brown DPM Work Phone: [facility] 10-04-2024 14:48-0500 Body mass index (BMI) [Ratio] 56.7 kg/m2 Pato Brown DPM Work Phone: [facility] 10-04-2024 14:48-0500 Body weight 140.62 kg Pato Brown DPM Work Phone: [facility] 10-04-2024 14:48-0500 Diastolic blood pressure 79 mm[Hg] Pato Brown DPM Work Phone: [facility] 10-04-2024 14:48-0500 Heart rate 82 /min Pato Brown DPM Work Phone: [facility] 10-04-2024 14:48-0500 Systolic blood pressure 129 mm[Hg] Pato Brown DPM Work Phone: [facility] 09-20-2024 14:37-0400 Body height 157.5 cm Pato Koehler DPM Work Phone: [facility] 09-20-2024 14:37-0400 Body mass index (BMI) [Ratio] 56.7 kg/m2 Pato Brown DPM Work Phone: [facility] 09-20-2024 14:37-0400 Body weight 140.62 kg Pato Brown DPM Work Phone: [facility] 09-20-2024 14:37-0400 Diastolic blood pressure 77 mm[Hg] Pato Brown DPM Work Phone: [facility] 09-20-2024 14:37-0400 Heart rate 79 /min Pato Brown DPM Work Phone: [facility] 09-20-2024 14:37-0400 Systolic blood pressure 126 mm[Hg] Pato Brown DPM Work Phone: [facility] 09-13-2024 14:46-0400 Body height 157.5 cm Pato Brown DPM Work Phone: [facility] 09-13-2024 14:46-0400 Body mass index (BMI) [Ratio] 56.7 kg/m2 Pato Brown DPM Work Phone: [facility] 09-13-2024 14:46-0400 Body weight 140.62 kg Pato Brown DPM Work Phone: [facility] 09-13-2024 14:46-0400 Diastolic blood pressure 78 mm[Hg] Pato Brown DPM Work Phone: [facility] 09-13-2024 14:46-0400 Heart rate 85 /min Pato Brown DPM Work Phone: [facility] 09-13-2024 14:46-0400 Systolic blood pressure 123 mm[Hg] Pato Brown DPM Work Phone: [facility] 08-30-2024 14:58-0400 Body height 157.5 cm Pato Brown DPM Work Phone: [facility] 08-30-2024 14:58-0400 Body mass index (BMI) [Ratio] 56.7 kg/m2 Pato Brown DPM Work Phone: [facility] 08-30-2024 14:58-0400 Body weight 140.62 kg Pato Brown DPM Work Phone: [facility] 08-30-2024 14:58-0400 Diastolic blood pressure 80 mm[Hg] Pato Brown DPM Work Phone: [facility] 08-30-2024 14:58-0400 Heart rate 75 /min Pato Brown DPM Work Phone: [facility] 08-30-2024 14:58-0400 Respiratory rate 18 /min Pato Koehler DPM Work Phone: [facility] 08-30-2024 14:58-0400 Systolic blood pressure 128 mm[Hg] Pato Koehler DPM Work Phone: [facility] 08-02-2024 14:52-0400 Body height 157.5 cm Pato Koehler DPM Work Phone: [facility] 08-02-2024 14:52-0400 Body mass index (BMI) [Ratio] 56.7 kg/m2 Pato Koehler DPM Work Phone: [facility] 08-02-2024 14:52-0400 Body weight 140.62 kg Pato Koehler DPM Work Phone: [facility] 08-02-2024 14:52-0400 Diastolic blood pressure 79 mm[Hg] Pato Koehler DPM Work Phone: [facility] 08-02-2024 14:52-0400 Heart rate 82 /min Pato Koehler DPM Work Phone: [facility] 08-02-2024 14:52-0400 Systolic blood pressure 127 mm[Hg] Pato Koehler DPM Work Phone: [facility] 07-24-2024 14:58-0400 Body height 157.5 cm Jaime Campbellenry DO Work Phone: [facility] 07-24-2024 14:58-0400 Body mass index (BMI) [Ratio] 56.7 kg/m2 Jaime Biedenbach DO Work Phone: [facility] 07-24-2024 14:58-0400 Body weight 140.62 kg Jaime Biedenbach DO Work Phone: [facility] 05-16-2024 15:25-0400 Diastolic blood pressure 70 mm[Hg] LORI Emmanuel Work Phone: [facility] 05-16-2024 15:25-0400 Heart rate 80 /min [employer] Monique Emmanuel Work Phone: [facility] 05-16-2024 15:25-0400 Respiratory rate 22 /min [employer] Monique Emmanuel Work Phone: [facility] 05-16-2024 15:25-0400 SaO2% (BldA) [Mass fraction] 94 % [employer] Monique Emmanuel Work Phone: [facility] 05-16-2024 15:25-0400 Systolic blood pressure 124 mm[Hg] [employer] Monique Emmanuel Work Phone: [facility] 05-16-2024 12:57-0400 Body temperature 98.6 [degF] [employer] Monique Emmanuel Work Phone: [facility] 05-16-2024 12:57-0400 Inhaled oxygen flow rate 6 L/min [employer] Monique Emmanuel Work Phone: [facility] 05-16-2024 10:38-0400 Body mass index (BMI) [Ratio] 56.5 kg/m2 [employer] Monique Emmanuel Work Phone: [facility] 05-16-2024 10:31-0400 Body height 157.48 cm [employer] Monique Emmanuel Work Phone: [facility] 05-16-2024 10:31-0400 Body weight 140.16 kg [employer] Monique Emmanuel Work Phone: [facility] 04-25-2024 13:27-0400 Diastolic blood pressure 85 mm[Hg] Pato Koehler [facility] 04-25-2024 13:27-0400 Heart rate 64 /min Pato Koehler [facility] 04-25-2024 13:27-0400 Mean blood pressure 103 mm[Hg] Pato Koehler [facility] 04-25-2024 13:27-0400 Systolic blood pressure 139 mm[Hg] Pato Koehler [facility] 04-25-2024 13:26-0400 Heart rate 65 /min Pato Koehler [facility] 04-25-2024 13:26-0400 Respiratory rate 16 /min Pato Koehler [facility] 04-25-2024 13:26-0400 SaO2% (BldA) [Mass fraction] 93 % Pato Koehler [facility] 04-25-2024 13:26-0400 Blood Pressure Location Pato Koehler [facility] 04-25-2024 13:26-0400 Body temperature 98.42 [degF] Pato Koehler [facility] 04-25-2024 13:26-0400 Diastolic blood pressure 83 mm[Hg] Pato Koehler [facility] 04-25-2024 13:26-0400 Mean blood pressure 100 mm[Hg] Pato Koehler [facility] 04-25-2024 13:26-0400 Systolic blood pressure 135 mm[Hg] Pato Koehler [facility] 02-27-2024 17:36-0400 Body height 154.94 cm [employer] Monique Emmanuel Work Phone: [facility] 02-27-2024 17:36-0400 Body mass index (BMI) [Ratio] 58.4 kg/m2 [employer] Monique Whitleymer Work Phone: [facility] 02-27-2024 17:36-0400 Body temperature 97.7 [degF] [employer] Monique Emmanuel Work Phone: [facility] 02-27-2024 17:36-0400 Body weight 140.38 kg [employer] Monique Emmanuel Work Phone: [facility] 02-27-2024 17:36-0400 Heart rate 87 /min [employer] Monique Emmanuel Work Phone: [facility] 02-27-2024 17:36-0400 Respiratory rate 18 /min [employer] Monique Emmanuel Work Phone: [facility] 02-27-2024 17:36-0400 SaO2% (BldA) [Mass fraction] 97 % [employer] Monique Emmanuel Work Phone: [facility] 03-22-2022 16:45-0400 Body height 154.94 cm Monique Suemond Other [facility] Other 03-22-2022 16:45-0400 Body mass index (BMI) [Ratio] 58.38 kg/m2 Monique Suemond Other [facility] Other 03-22-2022 16:45-0400 Body temperature 97.9 [degF] Monique Suemond Other [facility] Other 03-22-2022 16:45-0400 Body weight 140.16 kg Monique Suemond Other [facility] Other 03-22-2022 16:45-0400 Diastolic blood pressure 93 mm[Hg] Monique Suemond Other [facility] Other 03-22-2022 16:45-0400 Respiratory rate 20 /min Monique Suemond Other [facility] Other 03-22-2022 16:45-0400 SaO2% (BldA) [Mass fraction] 98 % Monique Suemond Other [facility] Other 03-22-2022 16:45-0400 Systolic blood pressure 154 mm[Hg] Monique Octavia Other [facility] Other Encounters Encounter Date Encounter Type Care Provider Facility Start: 12-14-2024 End: 12-14-2024 Orders Only Sean Mata DPM Work Phone: Orthopaedics Comment on above: 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) Start: 12-12-2024 End: 12-12-2024 Telephone encounter Sean Mata DPM Work Phone: Orthopaedics Comment on above: Surgical Followup Start: 12-12-2024 End: 12-12-2024 Patient encounter procedure Jamal Garcia RT(R) Radiology Comment on above: Pain in right foot ( Primary Dx); Accessory navicular bone of right foot Start: 12-12-2024 End: 12-12-2024 ambulatory Jamal Gacria RT(R) Radiology Comment on above: Radiology XR Start: 12-12-2024 End: 12-12-2024 Subsequent hospital visit by physician Saúl Martínez 1 Work Phone: Radiology Comment on above: Pain [R52] Start: 11-26-2024 End: 11-26-2024 ambulatory [facility] Start: 10-24-2024 End: 10-24-2024 Postop follow up visit related to original px Pato Koehler DPM Work Phone: [facility] Comment on above: Stress fracture of r ight foot, initial encounter (Primary Dx); Type 2 diabetes mellitus without complication, 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 chcf insulin use (CMS/[facility]); Accessory navicular bone of right foot Start: 10-24-2024 End: 10-24-2024 ambulatory PATO KOEHLER Not Available Start: 10-24-2024 End: 10-24-2024 Bamboo flowsheet Pato Koehler DPM Work Phone: [facility] Start: 10-24-2024 End: 10-24-2024 Bamboo flowsheet Pato Elizabeth Brown DPM Work Phone: [facility] Start: 10-04-2024 End: 10-04-2024 Postop follow up visit related to original px Pato Elizabeth Brown DPM Work Phone: 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 Start: 10-04-2024 End: 10-04-2024 Bamboo flowsheet Pato Elizabeth Brown DPM Work Phone: [facility] Start: 09-20-2024 End: 09-20-2024 Postop follow up visit related to original px Pato Elizabeth Brown DPM Work Phone: 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 Start: 09-20-2024 End: 09-20-2024 Bamboo flowsheet Pato A Brown DPM Work Phone: [facility] Start: 09-13-2024 End: 09-13-2024 Postop follow up visit related to original px Pato A Brown DPM Work Phone: 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); Type 2 diabetes mellitus without complication, 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 chcf insulin use ([facility]); Heel spur, left; Plantar fasciitis; Contracture of left ankle; Contracture of right ankle Start: 08-30-2024 End: 08-30-2024 ambulatory PATO KOEHLER Not Available Start: 08-30-2024 End: 08-30-2024 Bamboo flowsheet Pato Koehler DPM Work Phone: [facility] Start: 08-30-2024 End: 08-30-2024 Bamboo flowsheet Pato Koehler DPM Work Phone: [facility] Start: 08-02-2024 End: 08-02-2024 Office outpatient visit 15 minutes Pato Koehler DPM Work Phone: [facility] Comment on above: 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); Posterior tibial tendonitis of right leg; Type 2 diabetes mellitus without complication, 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 (CMS/[facility]) Start: 08-02-2024 End: 08-02-2024 ambulatory PATO KOEHLER Not Available Start: 08-02-2024 End: 08-02-2024 Bamboo flowsheet Pato Koehler DPM Work Phone: [facility] Start: 08-02-2024 End: 08-02-2024 Bamboo flowsheet Pato Koehler DPM Work Phone: [facility] Start: 07-24-2024 End: 07-24-2024 Office outpatient new 45 minutes Jaime Camargo DO Work Phone: [facility] Comment on above: Arthralgia of left t emporomandibular joint (Primary Dx); Left ear pain; Chronic rhinitis; Fullness in ear, left Start: 07-24-2024 End: 07-24-2024 ambulatory JAIME CAMARGO Not Available Start: 07-24-2024 End: 07-24-2024 Bamboo flowsheet Jaime Spencer Camargo DO Work Phone: [facility] Start: 07-24-2024 End: 07-24-2024 Bamboo flowsheet Jaime Palmer Kithaileeoscar DO Work Phone: [facility] Start: 07-19-2024 End: 07-19-2024 Office outpatient visit 15 minutes Pato Koehler DPM Work Phone: [facility] Comment on above: Posterior tibial ten donitis of right leg (Primary Dx); Accessory navicular bone of left foot; Type 2 diabetes mellitus without complication, 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 chcf insulin use ([facility]); Accessory navicular bone of right [...] 05-16-2024 Admission to same day surgery center [employer]-C Monique Emmanuel Work Phone: [facility] [place] Start: 05-16-2024 End: 05-16-2024 ambulatory [employer]IVER[employer]C Monique Emmanuel Work Phone: [facility] Work Phone: Start: 05-03-2024 End: 05-03-2024 ambulatory PATO KOEHLER Not Available Start: 04-25-2024 ambulatory Pato Koehler Facili ty:[facility] Start: 04-25-2024 End: 04-25-2024 ambulatory DPM Pato Koehler Facility:[facility] Start: 04-25-2024 End: 04-25-2024 Patient encounter procedure Pato Koehler [facility] Start: 04-16-2024 End: 05-10-2024 Pre-admission assessment Pato Koehler [facility] Start: 04-12-2024 End: 04-12-2024 ambulatory PATO KOEHLER Not Available Start: 03-29-2024 End: 03-29-2024 ambulatory PATO KOEHLER Not Available Start: 02-27-2024 End: 02-27-2024 ambulatory [employer]IVER[employer]C Monique Purcelle Lien Work Phone: [facility] Work Phone: Start: 02-27-2024 End: 02-27-2024 Patient encounter procedure [employer]-C Monique Emmanuel Work Phone: [facility] [...] medical examination without abnormal findings MONIQUE EMMANUEL [facility] Start: 08-18-2022 End: 08-19-2022 ambulatory MONIQUE EMMANUEL Facility:[facility] Start: 08-18-2022 End: 08-19-2022 Encounter for general adult medical examination without abnormal findings MONIQUE EMMANUEL Facility:[facility] Start: 06-01-2022 End: 06-01-[address] WESTLEY JHA Facility:[facility] Start: 03-22-2022 End: 03-22-2022 ambulatory Monique Dudley Other [facility] Other Start: 03-22-2022 Office outpatient vi sit 15 minutes Monique Dudley [facility] Procedures Date Procedure Procedure Detail Performing Clinician Start: 12-12-2024 Radex foot complete minimum 3 views Sean Mata DPM Work Phone: Start: 05-16-2024 Debridement [employer]C Shruti Emmanuel Work Phone: Start: 05-16-2024 X-ray of left foot [employer] Monique Emmanuel Work Phone: Start: 02-27-2024 Plain X-ray of right shoulder [employer]IVER-C Monique Whitleymer Work Phone: Cholecystectomy Pato Americo pulliam Plan of Treatment Date Care Activity Detail Author Start: 01-09-2025 End: 01-09-2025 Patient encounter procedure 01/09/2025 10:15 AM EST Office Visit Orthopaedics [address] [place] [address] Sean Mata, DPM [address] [place] [address] Post op right foot, SX 12/31/24 Orthopaedics Comment on above: Post op right foot, SX 12/31/24 Start: 12-31-2024 End: 12-31-2024 Admission to same day surgery center 12/31/2024 1:30 PM EST - 12/31/2024 3:30 PM EST Surgery Ambulatory Surgery [address] [place] [address] Sean Mata, DPM [address] [place] [address] RECONSTRUCTION POSTERIOR TIBIAL TENDON W/EXCISION OF ACCESSORY TARSAL NAVICULAR BONE Ambulatory Surgery Comment on above: RECONSTRUCTION POSTE RIOR TIBIAL TENDON W/EXCISION OF ACCESSORY TARSAL NAVICULAR BONE Start: 12-31-2024 End: 12-31-2024 Rcnstj pst tibl tdn w/exc accessory tarsl navclr RECONSTRUCTION POSTERIOR TIBIAL TENDON W/EXCISION OF ACCESSORY TARSAL NAVICULAR BONE Accessory navicular bone of right foot 12/31/2024 1:30 PM EST [facility] Start: 12-31-2024 Subsequent hospital visit by physician 12/31/2024 1:30 PM EST Hospital Encounter Ambulatory Surgery [address] [place] [address] Sean Mata, CALLIEM [address] [place] [address] 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] Ambulatory Surgery Comment on above: 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] Start: 12-28-2024 End: 12-28-2024 Anesthesia consultation 12/28/2024 10:10 AM EST PAT Pre Anesthesia [address] [place] [address] PACC right foot, SX 12/31/24 Pre Anesthesia Comment on above: PACC right foot, SX 12/31/24 Start: 11-01-2024 End: 11-01-2024 Patient encounter procedure 11/01/2024 4:20 PM EST Office Visit [facility] [address] [facility] [address] [place] [address] Pato Koehler DPM [address] [address] [facility] Start: 10-24-2024 End: 10-24-2024 Patient encounter procedure 10/24/2024 2:40 PM EST Office Visit [facility] [address] [place] [id number] Pato Koehler DPM [address] [address] Stress fracture of right foot, initial encounter (Primary Dx); Type 2 diabetes mellitus without complication, 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 chcf insulin use (CMS/HCC) [facility] Comment on above: Stress fracture of r ight foot, initial encounter (Primary Dx); Type 2 diabetes mellitus without complication, 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 chcf insulin use (CMS/HCC) Start: 10-11-2024 Hepatitis B Vaccine (3 of 3 - 3-dose series) Hepatitis B Vaccine (3 of 3 - 3-dose series) [facility] Start: 10-04-2024 End: 10-04-2024 Patient encounter procedure 10/04/2024 2:40 PM EST Office Visit [facility] [address] [facility] [address] [place] [id number] Pato Koehler DPM [address] [address] 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); Contracture of right ankle [facility] Comment on above: 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); Contracture of right ankle Start: 09-20-2024 End: 09-20-2024 Patient encounter procedure 09/20/2024 2:40 PM EDT Office Visit [facility] [address] [facility] [address] [place] [address] Pato Koehelr DPM [address] [address] 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); Contracture of right ankle [facility] Comment on above: 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); Contracture of right ankle Start: 09-13-2024 End: 09-13-2024 Patient encounter procedure 09/13/2024 3:20 PM EDT Office Visit [facility] [address] [address] Pato Koehler, DPM [address] [address] [facility] Start: 09-12-2024 End: 09-12-2024 Patient encounter procedure 09/12/2024 3:00 PM EDT Office Visit [facility] [address] [place] [address] Pato Koehler DPM [address] [address] [facility] Start: 09-05-2024 End: 09-05-2024 Patient encounter procedure 09/05/2024 7:30 AM EDT Procedure Visit [facility] Pato Koehler DPM [address] [address] [facility] Start: 08-30-2024 End: 08-30-2024 Patient encounter procedure 08/30/2024 2:50 PM EDT Office Visit [facility] [address] [address] Pato Koehler DPM [address] [address] 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); Type 2 diabetes mellitus without complication, 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 chcf insulin use (CMS/HCC) [facility] Comment on above: 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); Type 2 diabetes mellitus without complication, 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 chcf insulin use (CMS/HCC) Start: 08-02-2024 End: 08-02-2024 Patient encounter procedure [facility] Comment on above: 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); Posterior tibial tendonitis of right leg; Type 2 diabetes mellitus without complication, 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 chcf insulin use (CMS/HCC) Start: 07-29-2024 Covid-19 Vaccine ( season) Covid-19 Vaccine ( season) [facility] Start: 07-29-2024 Influenza vaccination Influenza Vacc ine (#1) [facility] Start: 07-24-2024 End: 07-24-2024 Patient encounter procedure [facility] Comment on above: Arrived Start: 07-19-2024 End: 07-19-2024 Patient encounter procedure 07/19/2024 4:00 PM EDT Office Visit [facility] [address] [place] [address] Pato Koehler DPM [address] [address] Accessory navicular bone of left foot (Primary Dx); Type 2 diabetes mellitus without complication, 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 chcf insulin use (CMS/HCC) [facility] Comment on above: Accessory navicular bone of left foot (Primary Dx); Type 2 diabetes mellitus without complication, 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 (CMS/HCC) Start: 05-16-2024 [facility] Start: 05-16-2024 [facility] Start: 2018 Screening for malign ant neoplasm of cervix [facility] Start: 2009 Screening for malign ant neoplasm of cervix [facility] Start: 2007 Urine screening for protein Diabetes: Urine Protein Screening [facility] Start: 2006 Anxiety Screening Anxiety Screening [facility] Start: 2006 Depression Screening Depression Scre ening [facility] Start: 2006 Hepatitis C screening Hepatitis C Sc reening [facility] Start: 2006 HIV screening HIV Screening [facility] Start: 1999 Urine microalbumin profile DTaP,Tdap,Td Vaccine (6 - Tdap) [facility] Start: 1998 Glaucoma screening Diabetes: R etinopathy Screening [facility] Start: 1988 Hemoglobin A1c measurement Diabetes: Hemoglobin A1C [facility] MR Foot - right WO contrast MR foot right wo IV contrast Imaging Routine Stress fracture of right foot, initial encounter Ordered: 10/04/2024 [facility] Work Phone: Comment on above: Ordered: 10/04/2024 Patient Education Know your Meds [facility] Work Phone: XR Foot - right 3 Views XR foot 3+ views right Imaging Routine Accessory navicular bone of right foot 09/13/2024 3:04 PM EDT [facility] Work Phone: XR Foot - right 3 Views XR foot 3+ views right Imaging Routine Accessory navicular bone of right foot 08/02/2024 3:28 PM EDT [facility] Work Phone: Immunizations Immunization Date Immunization Notes Care Provider Fa zahida 07-19-2002 hepatitis B vaccine, pediatric or pediatric/adolescent dosage Jaime Camarog DO Work Phone: [facility] 07-19-2002 measles, mumps and rubella virus vaccine Jaime Camargo DO Work Phone: [facility] 04-16-1993 diphtheria, tetanus toxoids and pertussis vaccine Jaime Camargo DO Work Phone: [facility] 04-16-1993 trivalent poliovirus vaccine, live, oral Jaime Camargo DO Work Phone: [facility] 05-18-1990 haemophilus influenz ae type b vaccine, conjugate unspecified formulation Jaime Campbelloscar DO Work Phone: [facility] 10-13-1989 diphtheria, tetanus toxoids and pertussis vaccine Jaime Paulry DO Work Phone: [facility] 10-13-1989 measles, mumps and rubella virus vaccine Jaime Paulry DO Work Phone: [facility] 10-13-1989 trivalent poliovirus vaccine, live, oral Jaime Camargo DO Work Phone: [facility] 05-11-1989 diphtheria, tetanus toxoids and pertussis vaccine Jaime Camargo DO Work Phone: [facility] 03-17-1989 diphtheria, tetanus toxoids and pertussis vaccine Jaime Paulry DO Work Phone: [facility] 03-17-1989 trivalent poliovirus vaccine, live, oral Jaime Camargo DO Work Phone: [facility] 1988 diphtheria, tetanus toxoids and pertussis vaccine Jaime Camargo DO Work Phone: [facility] 1988 trivalent poliovirus vaccine, live, oral Jaime Camargo DO Work Phone: [facility] Payers Date Payer Category Payer Unknown [id number] 2024 Self-pay [id number] 2020 [facility] er [id number] 2020 Unknown [id number]. 1.13.693. 2.7.3.285761.315 1988 Unknown [id number] 2.16.840.1.838409.3.579. 2.593 1988 Unknown [id number] 2.16.840.1.903138.3.579. 2.593 1988 Unknown [id number] 2.16.840.1.683105.3.579. 2.593 1988 Unknown [id number] 2.16840.1.116170.3.579. 2.593 1988 Unknown [id number] 2.16.840.1.863761.3.579. 2.593 1988 Unknown [id number] 2.16.840.1.372984.3.579. 2.593 1988 Unknown [id number] 2.16.840.1.215531.3.579. 2.593 1988 Unknown [id number] 2.16840.1.662239.3.579. 2.593 1988 Unknown [id number] 2.16.840.1.849512.3.579. 2.727 1988 Unknown [id number] 2.16.840.1.769062.3.579. 2.1259 1988 Unknown [id number] 2.16.840.1.556658.3.579. 2.1259 1988 Unknown [id number] 2.16.840.1.763022.3.579. 2.1259 1988 Unknown [id number] 2.16.840.1.107426.3.579. 2.1258 1988 Unknown [id number] 2.16.840.1.109770.3.579. 2.1258 1988 Unknown [id number] 2.16.840.1.041200.3.579. 2.1258 1988 Unknown [id number] 2.16.840.1.511284.3.579. 2.727 1988 Unknown [id number] 2.16.840.1.466624.3.579. 2.1258 1988 Unknown [id number] 2.16.840.1.536688.3.579. 2.1258 1988 Unknown [id number] 2.16.840.1.546536.3.579. 2.1258 1988 Unknown [id number] 2.16840.1.609287.3.579. 2.1258 1988 Unknown [id number] 2.16.840.1.715661.3.579. 2.1258 1988 Unknown [id number] 2.16.840.1.617898.3.579. 2.1258 1988 Unknown [id number] 2.16.840.1.407013.3.579. 2.1258 1988 Unknown [id number] 2.16.840.1.440780.3.579. 2.1258 1988 Unknown [id number] 2.16.840.1.328423.3.579. 2.1258 1988 Unknown [id number] 2.16.840.1.473623.3.579. 2.9 1959 [employer] Shield [id number] 2.16.840.1.175819.19 Unknown [id number] 2.16.840.1.316582.3.579. 2.531 Unknown [id number] 2.16840.1.521439.3.579. 2.531 Social History Date Type Detail Facility Unknown if ever smoked [facility] Other Start: 08-02-2024 End: 12-12-2024 Sex Assigned At [facility] Start: 10-25-2018 End: 03-29-2024 Tobacco smoking status NHIS Never smoked tobacco (finding) [facility] Start: 1988 Sex Assigned At Female [facility] Tobacco smoking status No Smoking Status Entered [facility] Start: 03-29-2024 Tobacco use and exposure Smokeless tobacco non-user [facility] Start: 06-28-2024 End: 08-02-2024 Alcoholic beverage intake Lifetime non-drinker (finding) [facility] Start: 08-02-2024 End: 12-12-2024 History of Social function [facility] Start: 1990 Sex assigned at Not on file [facility] Tobacco smoking status NHIS Tobacco smoking consumption unknown [facility] Adult Depression Screening Assessment 2 [facility] NEGATED: Highlighted rowStart: NINF History of tobacco use Passive smoker [facility] Goals Date Patient Goal Desired Activity /State Functional Status Date Assessment Result Facility 04-25-[address] 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 documented in this encounter [facility] 12-12-2024 Note HNO ID: [id number] Author: SEAN MATA DPM Service: ? Author Type: Physician Type: Progress Notes Filed: 12/12/2024 10:46 Note Text: [facility] Department of Orthopedics [facility] Orthopedic Surgery Name: Noel Paul Date of Service: December 12, 2024 CC/HPI: This 34 year old pleasant female patient presents to the clinic today with her present upon referral from Dr. Pato Koehler. The patient underwent right foot surgery in August for excess navicular and has had subsequent pain ever since. She has not had any physical therapy. She states her still a prominence over the medial aspect of her left foot. She had her left foot done prior to the with very little discomfort. She had an MRI performed of her left foot on October 18, 2024 which revealed a stress response navicular with an accessory navicular. She is seen today to discuss the problem and treatment options along with her plan of care. No past medical history on file. Current Outpatient Medications Medication Sig DEXCOM G7 WIRE TECHNICIAN 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 DEXCOM G7 SENSOR eduin DEXCOM G6 TRANSMITTER eduin as directed. glipiZIDE (GLUCOTROL) 5 mg tablet metFORMIN (GLUCOPHAGE) 500 mg tablet TAKE 1 TABLET BY MOUTH TWICE A DAY WITH MEAL omeprazole (PRILOSEC) 20 mg capsule TAKE 1 CAPSULE BY MOUTH EVERY DAY for 90 traZODone (DESYREL) 100 mg tablet TAKE 1 TABLET BY MOUTH EVERYDAY AT BEDTIME NEEDED cholecalciferol (VITAMIN D3) 5,000 unit tab Take 5,000 Units by mouth once daily. escitalopram oxalate (LEXAPRO) 20 mg tablet TAKE 1/2 TABLET BY MOUTH ONCE A DAY FOR 1 WEEK THEN 1 TABLET ONCE A DAY oxyCODONE-acetaminophen (PERCOCET) 5-325 mg tablet Take 1 tablet by mouth every 6 hours as needed. No current facility-administered medications for this visit. ALLERGIES Allergen Reactions Sulfa (Sulfonamide * Hives, Rash No past surgical history on file. No family history on file. Physical Exam: Patient is in a wheelchair with longer CAM Walker boot on the right lower extremity. Upon removal: The patient is alert and oriented x 3 in no apparent acute distress. Vascular: Pedal pulses are palpable DP and PT right. CFT is less than 3 seconds digits 1-5 right. Skin temperature is warm to cool from anterior knees to toes right. No varicosities right. Normal pedal hair growth right. Neuro: Light touch is intact to all quadrants of foot and ankle with no apparent sensory deficits right with attention to the surgical site. Derm: The patient is a postsurgical scar over the medial aspect of her right navicular approximately 4-5 cm in length Ortho: Muscle strength is +5/5 for all pedal groups right. Ankle joint, subtalar joint, 1st MPJ and lesser MPJ ROM's are full and without pain or crepitus right. 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 Radiographs 3 views right foot Discussed results of clinical and radiographic examination with the patient and her in detail along with treatment options. Recommend revision of the procedure with complete removal of the large excision navicular with remodeling with tendon reattachment advancement. Advised to be nonweightbearing for 4 to 6 weeks followed by progressive return to weightbearing and physical therapy. All questions were answered. No guarantees were given as to results maintain. Patient would like to proceed. We will complete scheduling. Sean Mata DPM [facility] 12-12-2024 History of Present illness Narrative [facility] Department of Orthopedics [facility] Orthopedic Surgery Name: Noel Paul Date of Service: December 12, 2024 CC/HPI: This 34 year old pleasant female patient presents to the clinic today with her present upon referral from Dr. Pato Koehler. The patient underwent right foot surgery in August for excess navicular and has had subsequent pain ever since. She has not had any physical therapy. She states her still a prominence over the medial aspect of her left foot. She had her left foot done prior to the with very little discomfort. She had an MRI performed of her left foot on October 18, 2024 which revealed a stress response navicular with an accessory navicular. She is seen today to discuss the problem and treatment options along with her plan of care. No past medical history on file. Current Outpatient Medications Medication Sig DEXCOM G7 WIRE TECHNICIAN 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 DEXCOM G7 SENSOR eduin DEXCOM G6 TRANSMITTER eduin as directed. glipiZIDE (GLUCOTROL) 5 mg tablet metFORMIN (GLUCOPHAGE) 500 mg tablet TAKE 1 TABLET BY MOUTH TWICE A DAY WITH MEAL omeprazole (PRILOSEC) 20 mg capsule TAKE 1 CAPSULE BY MOUTH EVERY DAY for 90 traZODone (DESYREL) 100 mg tablet TAKE 1 TABLET BY MOUTH EVERYDAY AT BEDTIME NEEDED cholecalciferol (VITAMIN D3) 5,000 unit tab Take 5,000 Units by mouth once daily. escitalopram oxalate (LEXAPRO) 20 mg tablet TAKE 1/2 TABLET BY MOUTH ONCE A DAY FOR 1 WEEK THEN 1 TABLET ONCE A DAY oxyCODONE-acetaminophen (PERCOCET) 5-325 mg tablet Take 1 tablet by mouth every 6 hours as needed. No current facility-administered medications for this visit. ALLERGIES Allergen Reactions Sulfa (Sulfonamide * Hives, Rash No past surgical history on file. No family history on file. Physical Exam: Patient is in a wheelchair with longer CAM Walker boot on the right lower extremity. Upon removal: The patient is alert and oriented x 3 in no apparent acute distress. Vascular: Pedal pulses are palpable DP and PT right. CFT is less than 3 seconds digits 1-5 right. Skin temperature is warm to cool from anterior knees to toes right. No varicosities right. Normal pedal hair growth right. Neuro: Light touch is intact to all quadrants of foot and ankle with no apparent sensory deficits right with attention to the surgical site. Derm: The patient is a postsurgical scar over the medial aspect of her right navicular approximately 4-5 cm in length Ortho: Muscle strength is +5/5 for all pedal groups right. Ankle joint, subtalar joint, 1st MPJ and lesser MPJ ROM's are full and without pain or crepitus right. 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 Radiographs 3 views right foot Discussed results of clinical and radiographic examination with the patient and her in detail along with treatment options. Recommend revision of the procedure with complete removal of the large excision navicular with remodeling with tendon reattachment advancement. Advised to be nonweightbearing for 4 to 6 weeks followed by progressive return to weightbearing and physical therapy. All questions were answered. No guarantees were given as to results maintain. Patient would like to proceed. We will complete scheduling. Sean Mata DPM documented in this encounter [facility] 12-12-2024 Note HNO ID: [id number] Author: JAMAL GARCIA RT(R) Service: ? Author Type: Technologist Type: Progress Notes Filed: 12/12/2024 09:29 Note Text: Radiology Service Progress Note PATIENT NAME: Noel Paul DATE OF SERVICE: December 12, 2024 TIME: 9:29 AM PATIENT IDENTITY VERIFICATION COMPLETED USING TWO (2) IDENTIFIERS: Name and Date of confirmed by patient verbally. FALL SCREENING: Has the patient had 2 falls in the last year or 1 fall with injury or currently using an Ambulatory Assistive Device (Walker, Cane, Wheelchair, Crutches, etc.)? No PATIENT GENDER DATA: Assigned female at . status: : No status: NO. PATIENT RELEVANT IMPLANT DATA REVIEWED: Not Applicable PATIENT PRESENTS WITH AN IMPLANTABLE OR ATTACHED COMPOSITION ROLL MAKER AND CUTTER: No RADIOLOGY DEPARTMENT: General X-ray: Exam(s) Completed: Lower Extremity X-Ray(s): Foot, Right PERIPHERAL IV DATA: Not applicable SIGNED BY: RT Manju(R) December 12, 2024 9:29 AM [facility] 12-12-2024 History of Present illness Narrative Radiology Service Progress Note PATIENT NAME: Noel Paul DATE OF SERVICE: December 12, 2024 TIME: 9:29 AM PATIENT IDENTITY VERIFICATION COMPLETED USING TWO (2) IDENTIFIERS: Name and Date of confirmed by patient verbally. FALL SCREENING: Has the patient had 2 falls in the last year or 1 fall with injury or currently using an Ambulatory Assistive Device (Walker, Cane, Wheelchair, Crutches, etc.)? No PATIENT GENDER DATA: Assigned female at . status: : No status: NO. PATIENT RELEVANT IMPLANT DATA REVIEWED: Not Applicable PATIENT PRESENTS WITH AN IMPLANTABLE OR ATTACHED COMPOSITION ROLL MAKER AND CUTTER: No RADIOLOGY DEPARTMENT: General X-ray: Exam(s) Completed: Lower Extremity X-Ray(s): Foot, Right PERIPHERAL IV DATA: Not applicable SIGNED BY: RT Manju(R) December 12, 2024 9:29 AM documented in this encounter [facility] 11-26-2024 Note Orthopedic Surgery Subjective Pain of the Right Foot 11/26/24 Noel Paul is a 34 y.o. female presenting as new patient to me for evaluation of right foot pain , s/p failed surgery at outside hospital. Patient has a history of bilateral accessory navicular's with the left one being excised earlier this year in May and the right one with attempted excision in August of this year (2023). 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 Patient states that at her last surgery where the accessory navicular was attempted to be removed, her previous surgeon also used a suture anchor in order to fixate her posterior tibial tendon back into bone. She states her operating surgeon has told her to be nonweightbearing to the right lower extremity however she has been weightbearing as tolerated within a boot. She denies any significant numbness or tingling. Review of Systems unremarkable aside from what is noted in HPI History No past surgical history on file. No past medical history on file. Objective General: Body mass index is 58.53 kg/m???. No acute distress, comfortable Respiratory: Unlabored breathing with normal rate, no cough Cardiovascular: Warm well perfused extremities Psych: Appropriate mood behavior Right lower extremity: Previous surgical scar over the medial aspect of her foot is healing well. She has no erythema or purulent drainage. Exquisitely tender over this area particularly along the navicular and PTT. Pain with resisted inversion of the ankle. 5/5 strength to plantarflexion, dorsiflexion. Sensation intact to light touch to sural, saphenous, tibial, SPN, DPN distributions Foot warm well-perfused Imaging personally reviewed: Standing X-rays of the right foot and ankle performed today 11/26/2024 demonstrates large accessory navicular of the right foot. No other acute osseous abnormality Imaging was reviewed and interpreted by me, and findings were reviewed with the patient. Assessment/Plan Noel Paul is a 34 y.o. year old female with persistent right foot pain status post failed right accessory navicular excision by another surgeon at outside hospital. 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 Of note patient BMI of 58.33 would interfere with surgical decision making if we were to proceed with further surgery to address the posterior tibial tendon insufficiency and large accessory navicular Plan - I recommend an MRI of the right foot for probably revision of the posterior tibial tendon - Patient to follow-up once MRI is done The patient understands and agrees to the management plan, and all patient questions have been answered to her satisfaction. Sukhdev Heredia MD 11/26/2024 By using the attestations below, the signing clinician agrees that I have read and verify that the documentation has been personally reviewed by me and ensure that the documentation accurately reflects the encounter. GC: I personally saw this patient on the day of the encounter, performed the ibarra portion(s) of the service and participated in the management and confirm the resident's documentation. Please note there may be an additional personal documentation from me. Kat Her MD Orthopedic Surgery, Computer Laboratory Technician [facility] 11/26/2024 [facility] 10-24-2024 History of Present illness Narrative Patient: Noel Paul : 1990 PCP: Erich Garcia MD [...] today for follow-up of MRI results at [facility]. Allergies: Allergies Allergen Reactions Sulfa Antibiotics Rash and Hives Past Medical History: Past Medical History: Diagnosis Date Diabetes ([facility]) Ear problems GERD (gastroesophageal reflux [...] diabetes mellitus without complication, 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 ([facility]) 3. Accessory navicular bone of [...] need more invasive surgery. Will refer to [facility] Dr. Phoenix for referral and consultation at tertiary care center secondary to more advanced type procedure may be necessary. Will refer for consultation and possible further intervention Pato Koehler DPM documented in this encounter [facility] 10-04-2024 History of Present illness Narrative Patient: Noel Paul : 1990 PCP: Erich Garcia MD [...] History: Past Medical History: Diagnosis Date Diabetes ([facility]) Ear problems GERD (gastroesophageal reflux [...] Pato Koehler DPM documented in this encounter [facility] 09-20-2024 History of Present illness Narrative Patient: Noel Paul : 1990 PCP: Erich Garcia MD [...] History: Past Medical History: Diagnosis Date Diabetes ([facility]) Ear problems GERD (gastroesophageal reflux [...] Pato Koehler DPM documented in this encounter [facility] 09-07-2024 Telephone encounter Note Has been called for possible increase in pain medication and will switch from hydrocodone to oxycodone and sent to [facility] and [facility] 09-07-2024 Miscellaneous Notes Has been called for possible increase in pain medication and will switch from hydrocodone to oxycodone and sent to [facility] and Ankita documented in this encounter [facility] 08-30-2024 History of Present illness Narrative Patient: Noel Paul : 1990 PCP: Erich Garcia MD [...] History: Past Medical History: Diagnosis Date Diabetes ([facility]) Ear problems GERD (gastroesophageal reflux [...] cool tibia to toes b/l NEURO: 5.07 Makaweli Deyanira monofilament test positive to digits and [...] diabetes mellitus without complication, 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 ([facility]) 3. Heel spur, left 4. [...] alternatives, benefits, post op complications and long wall mining machine helper expectations were discussed including but not limited to: infection,bone infection,wound dehiscence hardware failure and irritation,wound dehiscence,delay union/mal union/non union of bone. RSDS,neuroma,duty limitations,DVT/PE, DE,nerve damage, scar, loss of sensation, swelling. Pt [...] Pato Koehler DPM documented in this encounter [facility] 08-02-2024 History of Present illness Narrative Patient: Noel Paul : 1990 PCP: Erich Garcia MD [...] History: Past Medical History: Diagnosis Date Diabetes ([facility]) Ear problems GERD (gastroesophageal reflux [...] diabetes mellitus without complication, 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 ([facility]) PLAN Patient to continue with [...] Patient may continue with conservative treatments including [id number] anti-inflammatories and other treatments suggested today. Patient may want to be scheduled for surgical intervention in the near future. Patient had a right modified Kidner procedure to the right foot with removal of accessory navicular with postoperative pain medicine of [facility] and will see family Lien for preop clearance. This condition is unrelated to prior condition Pato Koehler DPM documented in this encounter [facility] 07-31-2024 Telephone encounter Note Pt called back, would like scanned at next appt [facility] 07-31-2024 Miscellaneous Notes Pt called back, would like scanned at next appt Left vm to go over benefits Per call to Elda CHILDRESS @ [phone] with Denise Marroquin - I verified the policy is current and active with an effective date of 11/28/2020. L3020 is covered at 100% as both the ded and oop have been met. There are no frequency limits, no exclusions, and no prior authorizations needed. Ref#: [id number]. Please precertify for custom orthotics for the diagnosis of Posterior tibial tendinitis bilaterally documented in this encounter [facility] 07-31-2024 Telephone encounter Note Left vm to go over benefits [facility] 07-27-2024 Telephone encounter Note Per call to Elda CHILDRESS @ [phone] with Denise Marroquin - I verified the policy is current and active with an effective date of 11/28/2020. L3020 is covered at 100% as both the ded and oop have been met. There are no frequency limits, no exclusions, and no prior authorizations needed. Ref#: [id number]. [facility] 07-24-2024 History of Present illness Narrative Subjective Patient ID: Noel Paul is a 34 y.o. female who [...] the next 7-10 days. Patient will use [id number] ibuprofen 3 times a day with food to help decrease inflammation. The patient may also benefit from a mouth guard. We will consider referral to Dr. Adali SALAZAR if there is no improvement documented in this encounter [facility] 07-19-2024 Telephone encounter Note Please precertify for custom orthotics for the diagnosis of Posterior tibial tendinitis bilaterally [facility] 07-19-2024 History of Present illness Narrative Patient: Noel Paul : 1990 PCP: [facility] Provider MD Milad SUBJECTIVE This [...] prior to procedure and rates pain a 06/06 Allergies: Allergies Allergen Reactions Sulfa Antibiotics Rash and Hives Past Medical History: Past Medical History: Diagnosis Date Diabetes ([facility]) Medications: Current Outpatient Medications: cholecalciferol [...] 2 diabetes mellitus without complication, 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 chcf insulin use ([facility]) 3. Accessory navicular bone of [...] Pato Koehler DPM documented in this encounter [facility] 03-22-2022 Evaluation note Encounter Date [...] no improvement in 5 to 7 days. 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 Type 2 diabetes mellitus without complication, 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 chcf insulin use ([facility]) Heel spur, left Plantar fasciitis Plantar fascial fibromatosis Contracture of left ankle Contracture of right ankle [facility] Diagnosis 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 documented in this encounter [facility]* Diagnosis 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 Contracture of right ankle Type 2 diabetes mellitus without complication, 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 chcf insulin use ([facility]) documented in this encounter [facility]* Diagnosis 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 Contracture of right ankle documented in this encounter [facility]* Diagnosis 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 Contracture of right ankle Stress fracture of right foot, initial encounter documented in this encounter [facility]* Diagnosis Stress fracture of right foot, initial encounter- Primary Type 2 diabetes mellitus without complication, 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 (CMS/HCC) Accessory navicular bone of right foot documented in this encounter [facility]* Diagnosis Posterior tibial tendonitis of right leg- Primary Accessory navicular bone of left foot Type 2 diabetes mellitus without complication, 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 ([facility] [facility]) Accessory navicular bone of right foot documented in this encounter [facility]* Diagnosis Arthralgia of left temporomandibular joint- Primary Left ear pain Unspecified otalgia Chronic rhinitis Fullness in ear, left documented in this encounter [facility]* Diagnosis 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 Posterior tibial tendonitis of right leg Type 2 diabetes mellitus without complication, 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 chcf insulin use ([facility]) documented in this encounter [facility]* Diagnosis Accessory navicular bone of left foot- Primary [facility] Pain in right foot- Primary Pain in limb Accessory navicular bone of right foot [facility] Pain Generalized pain [facility] Diagnosis 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 general Narrative - Reported* Type Description Date Medical History Acquired hypothyroidism Medical History vitamin D deficiency Surgical History cholecystectomy Hospitalization History No Hospitalization histo ry information [facility] [employer] [employer] Other History of Present illness Narrative* Pato Koehler, SHITAL - 09/13/2024 3:20 PM EDT Patient: Noel Paul : 1990 PCP: Erich Garcia MD [...] History: Past Medical History: Diagnosis Date Diabetes ([facility]) Ear problems GERD (gastroesophageal reflux [...] diabetes mellitus without complication, 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 ([facility]) PLAN Patient to keep dry [...] patient Pato Koehler DPM [facility] Narrative No data available for this section [facility] Discharge instructions No data available for this section [facility] Additional Instructions DISCHARGE INSTRUCTIONS FOR [...] operative site FOLLOW UP Phone numbers: Office [phone] [ ][facility] Work Phone: Progress note No data available for this section [facility] Diagnostic Procedure Only (Routine) - Closed Specialty Diagnoses / Procedures Referred By Contac t Referred To Contact XR IMAGING Diagnoses Pain Procedures XR FOOT GENERAL 3V AP/LAT/OBL RIGHT RADEX FOOT COMPLETE MINIMUM 3 VIEWS Sean Mata, DPM [id number] [place] [address] [place] [address] Referral ID Status Reason Start Date Expiration Date V isits Requested Visits Authorized [id number] Closed Auto-Generate d Referral 12/05/2024 01/04/2026 1 1 [facility] for visit Narrative* Diagnostic Procedure Only (Routine) - Closed Specialty Diagnoses / Procedures Referred By Alex gamboa Referred To Contact XR IMAGING Diagnoses Pain Procedures XR FOOT GENERAL 3V AP/LAT/OBL RIGHT RADEX FOOT COMPLETE MINIMUM 3 VIEWS Sean Mata DPM [address] [place] [address] [place] [id number] Referral ID Status Reason Start Date Expiration Date V isits Requested Visits Authorized [id number] Closed Auto-Generate d Referral 12/05/2024 01/04/2026 1 1 [facility] Summary Purpose Family History No Family [...] Referral Specialty Diagnoses / Procedures Referred By Alex gamboa Referred To Contact Diagnoses Accessory navicular bone of right foot Pato Koehler DPM [address] [address] Referral ID Status Reason Start Date Expiration Date V isits Requested Visits Authorized [id number] Pending Review 09/07/2024 03/06/2025 1 1 Additional [...] Comments Casting For Braces Or Orthotics 07/19/2024 Reason Comments Radiology XR Reason Comments Pain Reason Comments Surgical Followup INFORMATION SOURCE (unrecogn ized section and content) DATE CREATED AUTHOR 05/06/2023 [facility] DATE CREATED AUTHOR AUTHOR'S ORGANIZ ATION 04/26/2024 [facility] DATE CREATED AUTHOR AUTHOR'S ORGANIZ ATION 05/25/2024 [facility] DATE CREATED AUTHOR AUTHOR'S ORGANIZ ATION 07/01/[address] [facility] EPIC DATE CREATED AUTHOR AUTHOR'S ORGANIZ ATION 09/12/2024 [facility] DATE CREATED AUTHOR AUTHOR'S ORGANIZ ATION 09/13/2024 [facility] DATE CREATED AUTHOR AUTHOR'S ORGANIZ ATION 09/15/2024 [facility] DATE CREATED AUTHOR AUTHOR'S ORGANIZ ATION 10/27/[address] [facility] EPIC DATE CREATED AUTHOR AUTHOR'S ORGANIZ ATION 12/09/2024 [facility] DATE CREATED AUTHOR AUTHOR'S ORGANIZ ATION 12/15/2024 [facility] Care Teams (unrecognized sec tion and content) [...] May 16, 2024 End: May 16, 2024 aPto Koehler DPM Attending Provider Active Start: May 16, 2024 End: May 16, 2024 Airplane And Engine Inspector Relationship Specialty Start Date End Date Erich Garcia MD [address] [place] [phone] PCP - General Family Medicine 07/24/24 Monique Emmanuel MD [address] [place] [address] Referring Physician Family Medicine 03/29/24 Monique Emmanuel MD [address] [place] [phone] Referring Physician Family Medicine 07/24/24 Jaime Camargo DO [address] [place] [address] Otolaryngology 07/24/24 Airplane And Engine Inspector Relationship Specialty Start Date End Date Erich Garcia MD [address] [place] [phone] PCP - General Family Medicine 07/24/24 Monique Emmanuel MD [address] [place] [phone] Referring Physician Family Medicine 03/29/24 Monique Emmanuel MD [address] [place] [phone] Referring Physician Family Medicine 07/24/24 Jaime Camargo DO [address] [place] [address] Otolaryngology 07/24/24 Airplane And Engine Inspector Relationship Specialty Start Date End Date Erich Garcia MD [address] [place] [phone] PCP - General Family Medicine 07/24/24 Monique Emmanuel MD [address] [place] [phone] Referring Physician Family Medicine 03/29/24 Monique Emmanuel MD [address] [place] [phone] Referring Physician Family Medicine 07/24/24 Jaime Camargo DO [address] [place] [address] Otolaryngology 07/24/24 Airplane And Engine Inspector Relationship Specialty Start Date End Date Erich Garcia MD [address] [place] [phone] PCP - General Family Medicine 07/24/24 Monique Emmanuel MD [address] [place] [address] Referring Physician Family Medicine 03/29/24 Monique Emmanuel MD [address] [place] [phone] Referring Physician Family Medicine 07/24/24 Jaime Camargo DO [address] [place] [address] Otolaryngology 07/24/24 Airplane And Engine Inspector Relationship Specialty Start Date End Date Erich Garcia MD [address] [place] [phone] PCP - General Family Medicine 07/24/24 Monique Emmanuel MD [address] [place] [phone] Referring Physician Family Medicine 03/29/24 Monique Emmanuel MD [address] [place] [address] Referring Physician Family Medicine 07/24/24 Jaime Camargo DO [address] [place] [address] Otolaryngology 07/24/24 Airplane And Engine Inspector Relationship Specialty Start Date End Date Erich Garcia MD [address] [place] [phone] PCP - General Family Medicine 07/24/24 Monique Emmanuel MD [address] [place] [phone] Referring Physician Family Medicine 03/29/24 Monique Emmanuel MD [address] [place] [phone] Referring Physician Family Medicine 07/24/24 Jaime Camargo DO [address] [place] [address] Otolaryngology 07/24/24 Airplane And Engine Inspector Relationship Specialty Start Date End Date Erich Garcia MD [address] [place] [phone] PCP - General Family Medicine 07/24/24 Monique Emmanuel MD [address] [place] [address] Referring Physician Family Medicine 03/29/24 Monique Emmanuel MD [address] [place] [address] Referring Physician Family Medicine 07/24/24 Jamie Camargo DO [address] [place] [address] Otolaryngology 07/24/24 Airplane And Engine Inspector Relationship Specialty Start Date End Date Erich Garcia MD [address] [place] [phone] PCP - General Family Medicine 07/24/24 Monique Emmanuel MD [address] [place] [address] Referring Physician Family Medicine 03/29/24 Monique Emmanuel MD [address] [place] [address] Referring Physician Family Medicine 07/24/24 Jaime Camargo DO [address] [place] [address] Otolaryngology 07/24/24 Airplane And Engine Inspector Relationship Specialty Start Date End Date Unallocated, Yashira Romeo MD [address] [place] [address] PCP - General Family Medicine 03/29/24 Monique Emmanuel MD [address] [place] [phone] Referring Physician Family Medicine 03/29/24 Airplane And Engine Inspector Relationship Specialty Start Date End Date Erich Garcia MD [address] [place] [phone] PCP - General Family Medicine 07/24/24 Monique Emmanuel MD [address] [place] [address] Referring Physician Family Medicine 03/29/24 [place] [address] [place] [address] Referring Physician Family Medicine 07/24/24 Jaime Camargo DO [address] [facility] [place] [address] Otolaryngology 07/24/24 Airplane And Engine Inspector Relationship Specialty Start Date End Date Unallocated, Noms MD Ousmane [address] [facility] [place] [place] [address] PCP - General Family Medicine 03/29/24 Monique Emmanuel MD [address] [place] [address] Referring Physician Family Medicine 03/29/24 Airplane And Engine Inspector Relationship Specialty [place] [address] [place] [phone] PCP - General Family Medicine 07/24/24 Monique Emmanuel MD [address] [place] [address] Referring Physician Family Medicine 03/29/24 [place] [address] [place] [address] Referring Physician Family Medicine 07/24/24 Jaime Camargo DO [address] [place] [address] Otolaryngology 07/24/24 Airplane And Engine Inspector Relationship Specialty Start Date End Date Erich Garcia MD [address] [place] [phone] PCP - General Family Medicine 07/24/24 Monique Emmanule MD [address] [place] [phone] Referring Physician Family Medicine 03/29/24 Monique Emmanuel MD [address] [place] [address] Referring Physician Family Medicine 07/24/24 Jaime Camargo DO [address] [place] [place] [address] Otolaryngology 07/24/24 Airplane And Engine Inspector Relationship Specialty Start Date End Date Erich Garcia MD [address] [place] [phone] PCP - General Family Medicine 07/24/24 Monique Emmanuel MD [address] [place] [phone] Referring Physician Family Medicine 03/29/24 Monique Emmanuel MD [address] [place] [address] Referring Physician Family Medicine 07/24/24 Jaime Camargo DO [address] [place] [address] Otolaryngology 07/24/24 Airplane And Engine Inspector Relationship Specialty Start Date End Date Unallocated, Noms MD Ousmane [address] RAMOSPRESBY[facility] [place] [address] PCP - General Family Medicine 03/29/24 07/23/24 [place] [address] [place] [phone] PCP - General Family Medicine 07/24/24 Monique Emmanuel MD [address] [place] [address] Referring Physician Family Medicine 03/29/24 Monique Emmanuel MD [address] [place] [address] Referring Physician Family Medicine 07/24/24 Jaime Camargo DO [address] [place] [address] Otolaryngology 07/24/24 Goals (unrecognized section and content) Goals may be documented in a n alternate section Source Comments (unrecognize d section and content) In the event this informatio n is protected by the Federal Confidentiality of Alcohol and Drug Abuse Patient Records regulations: The Federal rules restrict any use of the information to criminally investigate or prosecute any alcohol or drug abuse patient.[facility] the event this information is protected by the Federal Confidentiality of Alcohol and Drug Abuse Patient Records regulations: The Federal rules restrict any use of the information to criminally investigate or prosecute any alcohol or drug abuse patient.[facility] the event this information is protected by the Federal Confidentiality of Alcohol and Drug Abuse Patient Records regulations: The Federal rules restrict any use of the information to criminally investigate or prosecute any alcohol or drug abuse patient.[facility] the event this information is protected by the Federal Confidentiality of Alcohol and Drug Abuse Patient Records regulations: The Federal rules restrict any use of the information to criminally investigate or prosecute any alcohol or drug abuse patient.[facility] the event this information is protected by the Federal Confidentiality of Alcohol and Drug Abuse Patient Records regulations: The Federal rules restrict any use of the information to criminally investigate or prosecute any alcohol or drug abuse patient.[facility] FOR RECORDS PERTAINING TO PATIENTS WHO ARE [...] BE BASED ON THE PRIMARY CLINICAL RECORDS. [facility]. provides no warranty or guarantee of the accuracy or completeness of information in this document.
== END 2024-12-17 20:41 | disposition home or self-care (01) ==
LOC: SLEEP 20:41
PROVIDERS: PCP Nurse Practitioner Family; Visit Provider Nurse Practitioner Family
DX: G47.33 Obstructive sleep apnea (adult) (pediatric) (principal)
CPT/HCPCS: 95811

== ENCOUNTER 2025-01-19 12:03 | Emergency (ER) | payer BC, SELFPAY ==
[2025-01-19 12:07] VITALS: BP 172/112; PULSE 85; TEMP 36.7; O2SAT 97; BMI 59.4
--- OUTSIDE RECORDS SUMMARY | 2025-01-19 12:11 | XMS_ITS | CCD ---
Author Organization [facility] Care Team Providers Care Manager Global Name Role Phone Monique Dudley Unavailable MONIQUE EMMANUEL Attending Unavailable LIEN, MONIQUE Primary Care Unavailable LIEN, MONIQUE Admitting Unavailable LIEN, MONIQUE Admitting Unavailable LIEN, MONIQUE Attending Unavailable LIEN, MONIQUE Consulting Unavailable LIEN, MONIQUE Primary Care Unavailable LIEN, MONIQUE Admitting Unavailable LIEN, MONIQUE Attending Unavailable LIEN, MONIQUE Consulting Unavailable LIEN, OMNIQUE Primary Care Unavailable LIEN, MONIQUE Primary Care [...] Provider MONIQUE EMMANUEL Primary Care Physician Pato Avelar Referring Unavailable Pato Avelar Attending Unavailable Pato Avelar Admitting Unavailable SHITAL Avelar Attending Provider Monique Emmanuel Primary Care Unavailable Pato Avelar Attending Unavailable Pato Avelar Admitting Unavailable Monique Dudley Attending Unavailable Monique Dudley Admitting Unavailable Monique Emmanuel Primary Care Unavailable BROWN, PATO A Attending Unavailable BROWN, PATO A Attending Unavailable BROWN, PATO A Attending Unavailable BROWN, PATO A Attending Unavailable BROWN, PATO A Attending Unavailable BROWN, PATO A Attending Unavailable Lien LONG, Monique Unavailable Monique Emmanuel MD Unavailable Erich Garcia MD Primary Care Provider Jaime Camargo DO Unavailable [phone] Brown, DPM Pato A Attending Unavailabl e [...] OSAMA Attending Unavailable Unavailable Primary Care Provider UnavailMonique Nelson CNP S Primary Care Provider SEAN AMTA Admitting Unavailab SEAN Dyson Attending Unavailab SEAN Dyson Referring Unavailab le SEAN MATA Attending Unavailab le SELF Referring Unavailable MONIQUE EMMANUEL S Primary Care Unavailable SEAN MATA Referring Unavailab SEAN Dyson Attending Unavailab SEAN Dyson Referring Unavailab le MONIQUE EMMANUEL S Primary Care Unavailable SELF Referring Unavailable MONIQUE EMMANUEL S Primary Care Unavailable Allergies Allergy Classification Reported Allergen(s) Allergy Type Date of Onset Reaction(s) Facility (1 source) Egg protein Drug allergy britebill [facility] [employer] Other (1 source) Sulf-10 Drug allergy britebill [facility] [employer] Other (1 source) Sulfonamides (Antibiotic) Drug allergy (disorder) 3 [facility] (15 sources) Sulfonamides (Antibiotic); Translations: [Sulfa (Sulfonamide Antibiotics)] Allergy to substance [facility] (4 sources) Egg Derived; Translations: [Egg Derived] Allergy to substance 4 [facility] (5 sources) Sulfonamides (Antibiotic); Translations: [sulfa drugs] Drug allergy [facility] (20 sources) Sulfonamides (Antibiotic) Drug Allergy 4 Rash, Hives [facility] Healthcare Medications Current Medications Medication Drug Class(es) Dates Sig (Normalized) Sig (Original) acetaminophen 325 mg / HYDROcodone bitartrate 5 mg oral tablet (2 sources) Opioid Agonist Start: 08-30-2024 End: 09-04-2024 take 1 tablet by mouth every eight hours as needed for pain HYDROcodone-aceta minophen ([place]) 5-325 MG tablet Indications: Pain Take 1 tablet by mouth every 8 (eight) hours if needed for moderate pain (PRN pain) for up to 5 days 15 tablet 08/30/2024 09/04/2024 Active acetaminophen 325 mg / oxyCODONE hydrochloride 5 mg oral tablet (14 sources) Opioid Agonist Start: 12-31-2024 End: 01-05-2025 take 1 tablet by mouth every six hours as needed for pain oxyCODONE-acetami nophen (PERCOCET) 5-325 mg tablet Indications: Accessory navicular bone of right foot , Post-op pain Take 1 tablet by mouth every 6 hours as needed for pain for up to 5 days. 20 tablet 12/31/2024 01/05/2025 Active Start: 10-24-2024 End: 10-29-2024 take 1 tablet [...] 5 days 15 tablet 09/07/2024 09/12/2024 Active aspirin 325 mg oral tablet (4 sources) Platelet Aggregation Inhibitor, Nonsteroidal Anti-inflammatory Drug Start: 12-31-2024 End: 02-14-2025 take 1 tablet by mouth once daily aspirin 325 mg tablet Indications: Accessory navicular bone of right foot Take 1 tablet by mouth once daily. 45 tablet 12/31/2024 02/14/2025 Active cholecalciferol 0.125 mg oral tablet (20 sources) Vitamin D Start: 01-30-2024 cholecalciferol (Vitamin D-3) 125 MCG (5000 UT) tablet 1 (one) time each day at the same time 01/30/2024 Active take 1 tablet by mouth once billy y cholecalciferol (VITAMIN D3) 5,000 unit tab Take 5,000 Units by mouth once daily. Active DEXCOM G6 TRANSMITTER [place] (9 sources) Start: 09-03-2024 DEXCOM G6 TRANSMITTER [place] as directed. 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 G7 ELECTRONICS INSTALLER misc (9 sources) Start: 09-20-2024 DEXCOM G7 RECE IVER 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 09/20/2024 Active DEXCOM G7 SENSOR [place] (9 sources) Start: 12-12-2024 DEXCOM G7 SENS OR [...] DAY Active glipiZIDE 5 mg oral tablet (9 sources) Sulfonylurea Start: 12-06-2024 glipiZIDE (GLUCOTROL) 5 mg tablet 12/06/2024 Active ketorolac tromethamine 10 mg oral tablet (4 sources) Nonsteroidal Anti-inflammatory Drug, Cyclooxygenase Inhibitor Start: 01-02-2025 take 1 tablet by mouth every six hours as needed keTORolac (TORADOL) 10 mg tablet Take 1 tablet by mouth every 6 hours as needed. with food. 20 tablet 01/02/2025 Active metFORMIN hydrochloride 500 mg oral tablet (20 sources) Biguanide Start: 05-23-2023 metFORMIN (Glucophage) 500 MG tablet 1 (one) time each [...] MOUTH EVERY DAY for 90 04/25/2024 Active promethazine hydrochloride 12.5 mg oral tablet (4 sources) Phenothiazine Start: 12-31-2024 End: 01-10-2025 take 1 tablet by mouth every eight hours as needed promethazine (PHENERGAN) 12.5 mg tablet Indications: Accessory navicular bone of right foot , Post-op pain Take 1 tablet by mouth every 8 hours as needed for up to 10 days. 30 tablet 12/31/2024 01/10/2025 Active traZODone hydrochloride 100 mg oral tablet [...] Start: 04-25-2024 take 2 tablets by mo [facility] at bedtime traZODONE 50 mg Tab 100 mg = 2 tab(s), Oral, Bedtime, Refills(s) 0, Sleep Start Date: 04/25/24 Status: Ordered Start: 03-12-2024 traZODone (Karthikeyan yrel) 50 MG tablet 1 (one) time each day at the same time 03/12/2024 Active Tensed Sling (3 sources) Start: 02-27-2024 Tensed Slin g Active 0 .Route 1 February [...] [Vitamin D deficiency] Onset: 08-19-2022 04-25-2024 Chronic Osteoarthritis (5 sources) Arthritis of right acromioclavicular joint; Translations: [Primary osteoarthritis, right shoulder] Onset: 12-28-2024 12-28-2024 Chronic Other acquired deformities (2 sources) Contracture of joint of left ankle; Translations: [Contracture, left ankle] 08-30-2024 Chronic Other acquired deformities (8 sources) Contracture of joint of right ankle; Translations: [Contracture, right ankle] 08-30-2024 Chronic Other congenital anomalies (4 sources) Other congenital malformations of lower limb(s), including pelvic girdle; 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), including pelvic girdle] Onset: 05-16-2024 Chronic Other congenital anomalies (20 sources) Accessory right tarsal navicular bone; Translations: [...] [Pain in right foot] 12-12-2024 Episodic Other nervous system disorders (1 source) Other acute postprocedural pain; Translations: [Post-op pain] Onset: 12-31-2024 Episodic Other non-traumatic joint disorders (1 source) Pain in right shoulder; Translations: [Pain in right shoulder] Onset: 02-27-2024 Episodic Other nutritional; endocrine; and metabolic disorders (6 sources) Morbid obesity; Translations: [Body mass index (BMI) 60.0-69.9, adult] Onset: 12-28-2024 12-28-2024 Chronic Other upper respiratory disease (1 source) Allergic rhinitis due to pollen; Translations: [Allergic rhinitis due to pollen] Chronic Other upper respiratory disease (2 sources) Chronic rhinitis; Translations: [Chronic rhinitis] 07-26-2024 Chronic Other upper respiratory infections (4 sources) Chronic sinusitis, unspecified; Translations: [CHRONIC SINUSITIS UNSPECIFIED] Onset: 01-05-2023 Chronic Pancreatic disorders (not diabetes) (3 sources) Pancreatitis 02-08-2014 Episodic Residual codes; unclassified (6 sources) Obstructive sleep apnea syndrome; Translations: [Obstructive sleep apnea (adult) (pediatric)] Onset: 12-28-2024 12-28-2024 Chronic Residual codes; unclassified (2 sources) Pain; Translations: [Pain, unspecified] 12-12-2024 Episodic Residual codes; unclassified (2 sources) History of operative procedure on foot; Translations: [Other specified postprocedural states] 01-03-2025 Episodic Residual codes; unclassified (1 source) Other specified postprocedural states; Translations: [S/P foot surgery, right] Onset: 01-09-2025 Episodic Residual codes; unclassified (1 source) Pain, [...] sources) Stress fracture of right foot 10-04-2024 Unclassified (1 source) History of operative procedure on foot 01-09-2025 Results Test Name Value Interpretation Reference Range Facility CNCOon 01-09-2025 CNCO Letter Text Normal [facility] CNOVon 01-09-2025 CNOV Office Visit (LOORRM ) NOEL PAUL ([id number]) 1990 F [facility] Date Time Provider Department 01/09/25 10:15 AM SEAN MATA During your visit today, we recorded the following information about you: Sean Mata, SHITAL 01/09/2025 10:55 AM Signed PRIMARY SERVICE: [facility] SUBJECTIVE: Patient is seen today for her first scheduled postop visit with her family present 9 days status post a revision of modified Kidner procedure of her right foot without complaints. Medical: PAST MEDICAL HISTORY Diagnosis Date Diabetes mellitus (HCC) GERD (gastroesophageal reflux disease) Obesity AQUILES (obstructive sleep apnea) PONV (postoperative nausea and vomiting) ALLERGIES: ALLERGIES Allergen Reactions Sulfa (Sulfonamide * Hives, Rash MEDICATIONS: Current Outpatient Medications Medication Sig keTORolac (TORADOL) 10 mg tablet Take 1 tablet by mouth every 6 hours as needed. with food. aspirin 325 mg tablet Take 1 tablet by mouth once daily. promethazine (PHENERGAN) 12.5 mg tablet Take 1 tablet by mouth every 8 hours as needed for up to 10 days. 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 DEXCOM G7 SENSOR eduin DEXCOM G6 TRANSMITTER eduin as directed. cholecalciferol (VITAMIN D3) 5,000 unit tab Take 5,000 Units by mouth once daily. escitalopram oxalate (LEXAPRO) 20 mg tablet TAKE 1/2 TABLET BY MOUTH ONCE A DAY FOR 1 WEEK THEN 1 TABLET ONCE A DAY glipiZIDE (GLUCOTROL) 5 mg tablet metFORMIN (GLUCOPHAGE) 500 mg tablet TAKE 1 TABLET BY MOUTH TWICE A DAY WITH MEAL omeprazole (PRILOSEC) 20 mg capsule TAKE 1 CAPSULE BY MOUTH EVERY DAY for 90 oxyCODONE-acetaminoph en (PERCOCET) 5-325 mg tablet Take 1 tablet by mouth every 6 hours as needed. traZODone (DESYREL) 100 mg tablet TAKE 1 TABLET BY MOUTH EVERYDAY AT BEDTIME NEEDED No current facility-administered medications for this visit. Surgical: PAST SURGICAL HISTORY Procedure Laterality Date PAST SURGICAL HISTORY OF Bilateral foot x2 PAST SURGICAL HISTORY OF Right shoulder REMOVAL GALLBLADDER PHYSICAL EXAM: The patient is alert and oriented x 3 and in no apparent acute distress. Patient presents with a clean dry intact posterior splint and dressings on the right lower extremity nonweightbearing. Upon removal: NEUROVASCULAR: Patient has only mild edema and erythema along the incision as expected DERMATOLOGIC: The incision is well coapted with intact sutures with no appreciable signs of active drainage bleeding purulence or cellulitis ORTHO/MUSCULOSKELETAL : With loading the fifth ray the foot is nice and rectus with minimal residual deformity ASSESSMENT: Satisfactory postop progress right foot status post 9 days appropriate to continue present TREATMENT TODAY: First postop visit right foot Discussed results of clinical examination with the patient and family in detail upon removal of the posterior splint and dressings. Pain incision with Betadine. Reapplied a bulky dry sterile dressing sterile 4 x 4's Kerlix followed by well-padded BK fiberglass nonweightbearing cast dorsiflexed to resistance and inverted. I will see the patient back in approximately 2 weeks for reevaluation with final cast. 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 with food. - aspirin 325 mg tablet Take 1 tablet by mouth once daily. - promethazine (PHENERGAN) 12.5 mg tablet Take 1 tablet by mouth every 8 hours as needed for up to 10 days. 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 - DEXCOM G7 SENSOR [...] BY MOUTH EVERY DAY for 90 - oxyCODONE-acetaminoph en (PERCOCET) 5-325 mg tablet Take 1 tablet by mouth every 6 hours as needed. - traZODone (DESYREL) 100 mg tablet TAKE 1 TABLET BY MOUTH EVERYDAY AT BEDTIME NEEDED Problem List As Of Date 01/09/2025 Noted R (more content not included)... Normal [facility] Office Visit (LOORR ) NOEL PAUL ([id number]) 1990 F [facility] Date Time Provider Department 01/09/25 9:30 AM [facility] During your visit today, we recorded the following information about you: Shaylee Concepcion MA 01/09/2025 11:22 AM Signed This patient is here today for splint removal, exam by Dr. Mata and cast application. The patient was placed in a short leg nonweightbearing cast. The surgical site was covered in betadine, 4x4's and kerlix. This was applied to right leg. Patient was instructed in care and usage and verbalizes understanding. Patient will follow up as scheduled or as needed. Referring Provider: SELF [[id number]] Allergies As of Date: 01/09/2025 Noted Allergy Reaction SULFA (SULFONAMIDE ANTIBIOTICS) 03/29/2024 4 - Hives 2 - Rash Date Reviewed: 12/31/2024 Reviewed by: Loren Martinez, ABA - Fully Assessed Primary Visit Diagnosis:S/P foot surgery, right [Z98.890] Prescriptions as of 01/09/2025 - keTORolac (TORADOL) 10 mg tablet Take 1 tablet by mouth every 6 hours as needed. with food. - aspirin 325 mg tablet Take 1 tablet by mouth once daily. - promethazine (PHENERGAN) 12.5 mg tablet Take 1 tablet by mouth every 8 hours as needed for up to 10 days. 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 - DEXCOM G7 SENSOR [...] BY MOUTH EVERY DAY for 90 - oxyCODONE-acetaminoph en (PERCOCET) 5-325 mg tablet Take 1 tablet by mouth every 6 hours as needed. - traZODone (DESYREL) 100 mg tablet TAKE 1 TABLET BY MOUTH EVERYDAY AT BEDTIME NEEDED Problem List As Of Date 01/09/2025 Noted Resolved Acid reflux [K21.9] 07/21/2024 Anxiety [F41.9] 07/21/2024 Diabetes mellitus without complication (HCC) [E*07/21/2024 Vitamin D deficiency [E55.9] 07/21/2024 Arthritis of right acromioclavicular joint [M19*12/28/2024 BMI 60.0-69.9, adult (HCC) [Z68.44] 12/28/2024 AQUILES (obstructive sleep apnea) [G47.33] 12/28/2024 Encounter Status:Closed by SHAYLEE CONCEPCION on 01/09/[address] [facility] CNPNon 01-02-2025 CNPN Telephone (LOORRM) NOEL PAUL ([id number]) 1990 F [facility] Date Time Provider Department 01/02/25 SEAN MATA During your visit today, we recorded the following information about you: Sean Mata DPM 01/02/2025 12:40 PM Signed Called patient at [phone] to return call regarding pain management. I spoke with the patient. Advised I sent a prescription over for her electronically for Toradol 10 mg tablets take 2 right away the 1 every 6 hours with food until gone in addition to the Percocet and the Phenergan. Recommend 2 Percocet every 4-6 hours due to her BMI. Sean Mata DPM Allergies As of Date: 01/02/2025 Noted Allergy Reaction SULFA (SULFONAMIDE ANTIBIOTICS) 03/29/2024 4 - Hives 2 - Rash Date Reviewed: 12/31/2024 Reviewed by: Loren Martinez, ABA - Fully Assessed Prescriptions as of 01/02/2025 - keTORolac (TORADOL) 10 mg tablet Take 1 tablet by mouth every 6 hours as needed. with food. - aspirin 325 mg tablet Take 1 tablet by mouth once daily. - promethazine (PHENERGAN) 12.5 mg tablet Take 1 tablet by mouth every 8 hours as needed for up to 10 days. - oxyCODONE-acetaminoph en (PERCOCET) 5-325 mg tablet Take 1 tablet by mouth every 6 hours as needed for pain for up to 5 days. 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 - DEXCOM G7 SENSOR [...] BY MOUTH EVERY DAY for 90 - oxyCODONE-acetaminoph en (PERCOCET) 5-325 mg tablet Take 1 tablet by mouth every 6 hours as needed. - traZODone (DESYREL) 100 mg tablet TAKE 1 TABLET BY MOUTH EVERYDAY AT BEDTIME NEEDED Problem List As Of Date 01/02/2025 Noted Resolved Acid reflux [K21.9] 07/21/2024 Anxiety [F41.9] 07/21/2024 Diabetes mellitus without complication (HCC) [E*07/21/2024 Vitamin D deficiency [E55.9] 07/21/2024 Arthritis of right acromioclavicular joint [M19*12/28/2024 BMI 60.0-69.9, adult (HCC) [Z68.44] 12/28/2024 AQUILES (obstructive sleep apnea) [G47.33] 12/28/2024 Encounter Status:Closed by SEAN MATA on 01/02/[address] 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 Post Anesthesia Patient Status Patient Evaluation: PACU. PACU/ICU Patient Condition: stable. Anticipated Disposition: phase 2 then home. Neurological Status: aware and responsive. Pulmonary Status: breathing comfortably on room air Airway Control: returned to baseline unsupported. Cardiovascular Status: stable. Pain Management: clinically adequate - multimodal analgesia pain management approach Postoperative Hydration: acceptable. Intraoperative Events: no significant anesthesia events Recommendation: continue current plan of care. Anesthesia Observations No Documentation SIGNATURE: Peter Brown MD PATIENT NAME: Noel Paul DATE: December 31, 2024 TIME: 11:19 AM CSN: [id number] Normal [facility] ANES PRE-OPon 12-31-2024 ANES PRE-OP HNO ID: [id number] Author: PEETR BROWN MD Service: Anesthesiology Author Type: Anesthesiologist Type: Anesthesia Preprocedure Evaluation Filed: 12/31/2024 07:32 Note Text: ANESTHESIOLOGY DAY OF SURGERY NOTE : 1990 Procedure Information Date/Time: 12/31/24729 Procedure: RECONSTRUCTION POSTERIOR TIBIAL TENDON W/EXCISION OF ACCESSORY TARSAL NAVICULAR BONE (Right: Foot) Location: [place] [address] [facility] Surgeons: Sean Mata DPM Estimated body mass index is 62.06 kg/m? as calculated from the following: Height as of 12/28/24: 157.5 cm (5' 2 ). Weight as of 12/28/24: 153.9 kg (339 lb 4.6 oz). Most recent hematocrit and potassium results: No results found for this basename: HCT,HEMATOCRIT,K,POTA SSIUM Relevant Problems ANESTHESIA (+) AQUILES (obstructive sleep apnea) GI (+) Acid reflux PULMONARY (+) AQUILES (obstructive sleep apnea) Other (+) Arthritis of right acromioclavicular joint I - PHYSICAL EVALUATION AIRWAY Patient intubated: No. Tracheostomy tube not present Mallampati: III. TM distance: >3 FB. Neck ROM: limited extension. Mouth opening: adequate. Short neck: yes. Thick neck: yes Lopez present: no DENTAL Dental findings: teeth intact and poor dentition. Additional exam findings: no II - ANESTHESIA PLAN ASA Score: 3 Anesthetic Plan: general Airway type: ETT NPO Status: adequate Beta Chiquis Monitoring Plan Monitoring plan: Standard ASA. Post Procedure Analgesic Plan Postoperative analgesic plan: parenteral or oral opioids and multimodal analgesia. Patient / Surrogate agrees to blood products: yes DNR status not reviewed with patient and/or family prior to surgery. Significant changes in the patient condition since the History and Physical, not otherwise documented in primary service progress note: no. Potential Anesthesia issues that may suggest increased risk of complications or contraindication to planned procedure: none. Vitals Value Taken Time BP 143/89 12/31/24 0707 Pulse 18 12/31/24 0707 Resp 16 12/31/24 0707 Temp 36.3 ?C (97.4 ?F) 12/31/24 0707 SpO2 97 % 12/31/24 0707 Facility-Administered Medications as of 12/31/2024 Medication Dose Route Frequency - lidocaine (PF) 10 mg/mL (1 %) 1-2 mg injection (XYLOCAINE) 0.1-0.2 mL INTRADERMAL PRN - NaCl 0.9% iv flush bag 20 mL INTRAVENOUS PRN - ceFAZolin 3 g in D5W 100 mL (ANCEF) 3 g INTRAVENOUS Pre-Op Once - scopolamine (delivers 1 mg over 3 days) 1 Patch (TRANSDERM-SCOP) 1 Patch TRANSDERMAL q 72 HR And - [START ON 01/03/2025] scopolamine - REMOVE PATCH OTHER q 72 HR And - scopolamine - VERIFY patch OTHER q 8 H Outpatient Medications as of 12/31/2024 Medication Sig - DEXCOM G7 ELECTRONICS INSTALLER 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 - DEXCOM G7 SENSOR [...] BY MOUTH EVERY DAY for 90 - oxyCODONE-acetaminoph en (PERCOCET) 5-325 mg tablet Take 1 tablet by mouth every 6 hours as needed. - traZODone (DESYREL) 100 mg tablet TAKE 1 TABLET BY MOUTH EVERYDAY AT BEDTIME NEEDED I have interviewed and examined the patient. I have reviewed the medical record and/or the pre-anesthesia evaluation, pertinent labs, and test results. This contains updated information obtained within 48 hours of Surgery/Procedure. SIGNATURE: Peter Brown MD PATIENT NAME: Noel Paul DATE: December 31, 2024 TIME: 7:31 AM CSN: [id number] Normal [facility] BRIEF OP NOTon 12-31-2024 BRIEF OP NOT HNO ID: [id number] Author: SEAN MATA DPM Service: Podiatry Author Type: Physician Type: Brief Op Note Filed: 12/31/2024 09:42 Note Text: BRIEF OPERATIVE / PROCEDURE NOTE LOG ID: [id number] SURGERY/PROCEDURE DATE: 12/31/2024 INCISION/PROCEDURE START TIME: 8:16 AM INCISION CLOSE/PROCEDURE END TIME: SURGEON(S)/PROCEDURAL IST(S) AND EXTENDER(S): Surgeons and Role: * Sean Mata DPM - Primary * Maurice Bernard DPM - Resident - Assisting No Additional Staff SURGERY/PROCEDURE(S): Revisional modified Kidner procedure right foot ANESTHESIA: General with local 20 CC of 2% Lidocaine plain FINDINGS: Large remaining gorilloid navicular and large loose accessory navicular ESTIMATED BLOOD LOSS: 20 mls SPECIMENS: gorilloid navicular portion and large loose accessory navicular COMPLICATIONS: None IMPLANTS: Athrex 3 mm Suturetak tendon anchor CLOSURE TECHNIQUE: Primary PRE-OP/PRE-PROCEDURE DIAGNOSIS: Painful accessory navicular right foot POST-OP/POST-PROCEDUR E DIAGNOSIS: Same as Preop Patient was accompanied to the next level of care by a licensed practitioner from the surgical team pending completion of this brief op note (or operative note) SIGNATURE: Sean Mata DPM PATIENT NAME: Noel Paul DATE: December 31, 2024 TIME: 9:39 AM [facility] (ORQ[facility] NOEL PAUL ([id number]) 1990 F [facility] Date Time Provider Department 12/31/24 SEAN MATA ORJose Carlos During your visit today, we recorded the following information about you: Marva Bhardwaj 12/31/2024 2:56 PM Signed Noel is calling Sean Mata DPM today because the pharmacy told her they did not have the strength of the percocet in stock that was sent I did speak with the surgery center as well and they were going to put a message to provider Please advise Patient has been identified by name and birthdate. Duration of symptoms: N/A Person calling: self Call patient at: at home [phone] (home) [phone] (cell) Was an appointment scheduled: No Closing statement: Results or non-symptom based questions: Thank you for calling [facility], your call will be returned within the next business day. Karissa Torrez MA 12/31/2024 3:26 PM Signed Message has been sent directly to Dr Mata's phone. Sean Mata DPM 01/01/2025 3:53 PM Signed Called patient at her Lonnie's cell number at [phone] to check on postop progress. Received voicemail. Left message that I called. Called patient back at 8:41 PM to same number. Spoke with who said she was doing well without any significant pain or problems at this time. Advised to call if any questions or problems between now and her first scheduled postop visit on January 09, 2025. SHITAL Ward Maria, RN 01/02/2025 10:44 AM Signed Pt is identified by name and birthdate: Yes Patient returns call, states she is in terrible pain 09/06 States Percocet is not working Please advise Natalia Barrios CT 01/03/2025 5:17 PM Signed Toradol was sent in for the patient. Allergies As of Date: 12/31/2024 Noted Allergy Reaction SULFA (SULFONAMIDE ANTIBIOTICS) 03/29/2024 4 - Hives 2 - Rash Date Reviewed: 12/31/2024 Reviewed by: Loren Martinez RN - Fully Assessed Reason for Visit: Surgical Followup [104] Prescriptions as of 01/03/2025 - keTORolac (TORADOL) 10 mg tablet Take 1 tablet by mouth every 6 hours as needed. with food. - aspirin 325 mg tablet Take 1 tablet by mouth once daily. - promethazine (PHENERGAN) 12.5 mg tablet Take 1 tablet by mouth every 8 hours as needed for up to 10 days. - oxyCODONE-acetaminoph en (PERCOCET) 5-325 mg tablet Take 1 tablet by mouth every 6 hours as needed for pain for up to 5 days. 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 - DEXCOM G7 SENSOR [...] BY MOUTH EVERY DAY for 90 - oxyCODONE-acetaminoph en (PERCOCET) 5-325 mg tablet Take 1 tablet by mouth every 6 hours as needed. - traZODone (DESYREL) 100 mg tablet TAKE 1 TABLET BY MOUTH EVERYDAY AT BEDTIME NEEDED Problem List As Of Date 12/31/2024 Noted Resolved Acid reflux [K21.9] 07/21/2024 Anxiety [F41.9] 07/21/2024 Diabetes mellitus without complication (HCC) [E*07/21/2024 Vitamin D deficiency [E55.9] 07/21/2024 Arthritis of right acromioclavicular joint [M19*12/28/2024 BMI 60.0-69.9, adult (HCC) [Z68.44] 12/28/2024 AQUILES (obstructive sleep apnea) [G47.33] 12/28/2024 Encounter Status:Closed by SEAN MATA on 01/01/25 Normal [facility] Pathology biopsy report Joseph (Tiss)on 12-31-2024 CASE REPORT Normal [facility] Comment on above: Order Comment: Speci men Type: TISSUE SPECIMENOrdering Facility: [facility] Address: [address] [place] [address] Result Comment: Surg ical Pathology Report Case: [id number] Authorizing Provider: Sean Mata, Collected: 12/31/2024 09:51 AM DPM Ordering Location: Ambulatory Surgery Received: 12/31/2024 01:28 PM Pathologist: Shemar Pablo MD Specimen: Bone and Soft Tissue, right foot Performed By: #### 6 6121-5 ####[facility] [id number] [address] LABIA [id number] [address] STATES OF [facility] CLINICAL HISTORY Normal [facility] Comment on above: Order Comment: Speci men Type: TISSUE SPECIMENOrdering Facility: [facility] Address: [address] [place] [address] Result Comment: Pre- op diagnosis: 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 LABCLIA [id number] [address] OF [facility] FINAL DIAGNOSIS Normal [facility] Comment on above: Order Comment: Speci men Type: TISSUE SPECIMENOrdering Facility: [facility] Address: [address] [place] [address] Result Comment: A. B one, right foot, excision: - Osteocartilaginous tissue with degenerative changes and granulation tissue. Performed By: #### 6 6121-5 ####[facility] LABORATORYCLIA [id number] [place] [address] [facility] LABCLIA [id number] [address] STATES OF [place] FINAL PERFORMING LAB Normal [facility] Comment on above: Order Comment: Speci men Type: TISSUE SPECIMENOrdering Facility: [facility] Address: [address] [place] [address] Result Comment: Diag nostic interpretation performed at: [facility], [address] [facility]., [facility] [address] CLIA# [id number] Psych Coordinator: Fermín Ojeda MD Performed By: #### 6 6121-5 ####[facility] LABORATORYCLIA [id number] [place] [address] [facility] LABCLIA [id number] [address] OF [place] GROSS DESCRIPTION Normal [facility] Comment on above: Order Comment: Speci men Type: TISSUE SPECIMENOrdering Facility: [facility] Address: [address] [place] [address] Result Comment: A. B one and Soft Tissue Received in formalin, labeled right foot are multiple irregular fragments of mccarthy, hard bone measuring 3 x 3 x 0.9 cm in aggregate. Sectioning reveals mccarthy, hard bone. No gross necrotic areas identified. Insurance Rater sections are submitted in A1 following formic decalcification. NICK January 01, 2025 10:57 AM Gross examination performed at [facility], [address] [place] [address] Performed By: #### 6 6121-5 ####[facility] LABORATORYCLIA [id number] [facility] [place] [address] [facility] LABCLIA [id number] [facility] [id number] [id number] [facility] [place] HISTORY PHYSICALon HISTORY PHYSICAL HNO ID: [id number] Author: ARY ROCHA APRN.IRENE Service: ? Author Type: Nurse Practitioner Type: H&P Filed: 12/28/2024 10:56 Note Text: [facility] HISTORY AND PHYSICAL EXAMINATION SERVICE DATE: 12/28/2024 SERVICE TIME: 10:08 AM PRIMARY CARE PHYSICIAN: Monique Emmanuel CNP, IRENE REASON FOR VISIT: Noel Paul is a 34 year old female who is scheduled for Right - RECONSTRUCTION POSTERIOR TIBIAL TENDON W/EXCISION OF ACCESSORY TARSAL NAVICULAR BONE at the request of Dr. Sean Mata for consultation. My final recommendation will be communicated back to the requesting physician by way of shared medical record or letter. Assessment Acid reflux Assessment: managed with med, stable Follows up with PCP Diabetes mellitus without complication (HCC) Assessment: managed with oral med, stable Follows up with PCP BG at home 120's HgbA1c 6.6% BMI 60.0-69.9, adult (HCC) Assessment: diet and exercise encouraged BMI 62 AQUILES (obstructive sleep apnea) Assessment: does not have CPAP yet Magana Activity Status Index: METS: Walk indoors, such as around the house (1.75 METs) Do light work around the house, such as dusting or washing dishes (2.70 METs) Take care of self; that is eating, dressing, bathing, using the toilet (2.75 METs) Walk a block or two on level ground (2.75 METs) Do moderate work around the house, such as vacuuming, sweeping floors, or carrying in groceries (3.50 METs) Climb a flight of stairs or walk up a hill (5.50 METs) DASI Score: 18.95 Patient denies any chest pain or undue shortness of breath with the above physical activity. Clinical Frailty Scale: 2. Well STOP-Bang Score: STOP-Bang Score: 0 (Awaiting CPAP) [id number] Score: Age: <65 Sex: female [id number] Score: ARISCAT Score: Age: <=50 Preoperative SpO2: >=96% Preoperative anemia: Yes Duration of surgery: <2 hrs Emergency procedure: No ARISCAT Score: ANESTHESIA FINDINGS: Intubation History: No history of difficult intubation. No abnormal airway history Significant Anesthesia Considerations: patient states after nerve block for rotator cuff, required admission due to low pulse ox none Airway History: No history of difficult airway No abnormal airway history I - PHYSICAL EVALUATION AIRWAY Patient intubated: No. Tracheostomy tube not present Mallampati: III. TM distance: <3 FB. Neck ROM: full ROM without neurological symptoms. Mouth opening: adequate. Short neck: yes. Thick neck: yes Lip Bite Test: I DENTAL Dental findings: teeth intact. II - ANESTHESIA PLAN Anesthetic plan additional comments: *PACC/TCI - anesthesia choice. Beta Chiquis Monitoring Plan Post Procedure Analgesic Plan Prepared for surgery: This patient is optimally prepared for surgery Email sent to Dr Goetz and Dr Brown for chart review and guidance on proceeding at [place]. Per Dr Goetz, patient may proceed as scheduled at [place] CONSULTS: Anesthesia Consult chart review The Following Tests/Procedures Have Been Initiated: Labs not indicated per PACC protocol, EKG not indicated per PACC protocol Planned Anesthetic: Per anesthesia choice The patient has the following: ACTIVE PROBLEM LIST Acid Reflux Anxiety Diabetes Mellitus Without Complication (Hcc) Vitamin D Deficiency Arthritis of Right Acromioclavicular Joint Bmi 60.0-69.9, Adult (Hcc) Aquiles (Obstructive Sleep Apnea) Subjective CHIEF COMPLAINT: Pre-op exam HPI: This is a 34 year old female that is scheduled for the above procedure. Patient has chronic right foot pain. She states current pain is 5/10 and described as a dull, ache. Pain is relieved with rest and wearing walking boot. Pain is worse with increased activity. PAST MEDICAL HISTORY Diagnosis Date Diabetes mellitus (HCC) GERD (gastroesophageal reflux disease) Obesity AQUILES (obstructive sleep apnea) PAST SURGICAL HISTORY Procedure Laterality Date PAST SURGICAL HISTORY OF Bilateral foot x2 PAST SURGICAL HISTORY OF Right shoulder REMOVAL GALLBLADDER History reviewed. No pertinent family history. SOCIAL HISTORY: Social History Tobacco Use Smoking status: Never Smokeless tobacco: Never Substance Use Topics Alcohol use: Never Drug use: Never MEDICATIONS: Prior to Admission medications as of 12/28/24 1009 Medication Sig Last Dose Taking cholecalciferol (VITAMIN D3) 5,000 unit tab Take 5,000 Units by mouth once daily. Taking Yes escitalopram oxalate (LEXAPRO) 20 mg tablet TAKE 1/2 TABLET BY MOUTH ONCE A DAY FOR 1 WEEK THEN 1 TABLET ONCE A DAY Taking Yes glipiZIDE (GLUCOTROL) 5 mg tablet Taking Yes metFORMIN (GLUCOPHAGE) 500 mg tablet TAKE 1 TABLET BY MOUTH TWICE A DAY WITH MEAL Taking Yes omeprazole (PRILOSEC) 20 mg capsule TAKE 1 CAPSULE BY MOUTH EVERY DAY for 90 Taking Yes oxyCODONE-acetaminoph en (PERCOCET) 5-325 mg tablet Take 1 t (more content not included)... Normal [facility] CNOVon 12-12-2024 CNOV Office Visit (LOORRM ) NOEL PAUL ([id number]) 1990 F [place] Date Time Provider Department 12/12/24 10:00 AM SEAN MATA During your visit today, we recorded the following information about you: Sean Mata DPM 12/12/2024 10:46 AM Signed [facility] Department of Orthopedics [facility] Orthopedic Surgery Name: Noel Paul Date of Service: December 12, 2024 CC/HPI: This 34 year old pleasant female patient presents to the clinic today with her present upon referral from Dr. Pato Avelar. 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 - DEXCOM G7 SENSOR [...] 1 CA (more content not included)... 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 Cathy Santana 12/14/2024 11:58 AM Signed Spoke to patient and she elected to schedule right foot surgery with Dr. Mata for 12/31/24. 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 - DEXCOM G7 SENSOR [...] BY MOUTH EVERY DAY for 90 - oxyCODONE-acetaminoph en (PERCOCET) 5-325 mg tablet Take 1 tablet by mouth every 6 hours as needed. - traZODone (DESYREL) 100 mg tablet TAKE 1 TABLET BY MOUTH EVERYDAY AT BEDTIME NEEDED Problem List As Of Date: 12/12/2024 (None) Encounter Status:Closed by CATHY SANTANA on 12/12/24 [facility]V AP/LAT/OBL RTon 0 12-12-2024 [...] unremarkable. IMPRESSION: No fracture or joint dislocation. Rn Maternal Child: HERNÁN Transcribe Date/Time: Dec 12 2024 9:37A Dictated by : LUX WILLETT MD This examination was interpreted and the report reviewed and electronically signed by: LUC AVILES MD on Dec 12 2024 11:47AM EST [id number] Normal [facility] XR Foot - right AP and Later al and obliqueon 12-12-2024 IMPRESSION: No fracture or joint dislocation. Rn Maternal Child: [facility] Transcribe Date/Time: Dec 12 2024 9:37A [...] tissues appear unremarkable. DIVISION OF RADIOLOGY Provider, Marija Anicetoteodoro [facility] - 12/12/2024 * * *Final Report* [...] IMPRESSION IMPRESSION: No fracture or joint dislocation. Rn M[facility]: [facility] Transcribe Date/Time: Dec 12 2024 9:37A Dictated by : LUX WILLETT MD This examination was interpreted and the report reviewed and electronically signed by: LUC AVILES MD on Dec 12 2024 11:47AM EST [facility] Radiology Study observation (narrative) Bradford zheng [facility] XR Foot - right AP and Later al and obliqueOrdered By: Cc Provider on 12-12-2024 [facility] 36on 12-04-2024 36 Spoke with patient and let her know that per Dr. Her she can bring the disc in and he will take a look at the images and let her know. Normal [facility] 36on 12-03-2024 36 Patient would like t o know if she can get in earlier than her rescheduled appt since she had to cancel. Patient would like to drop off her MRI results sooner than her appt as well. Please advise at [phone] [facility] Telephoneon 12-03-2024 Telephone [id number] Noel Paul 1990 F Date Provider Department Center 12/03/2024 73455-SRIKVRTIMBO HURTADO MP ORTHO MPORTHO No family history on file Reason for Visit and Comments: Appointment [375] [facility] 36on 11-29-2024 36 LVM with patient yoni t she will need to bring disc in. Scheduled patient for Tuesday12/03/24 at 10:30 am [facility] 36 Patient would like t o know if she needs to make an appointment to bring in her MRI results or if you have received them? Milk Handler does not see them in the chart. Please advise at [phone] [facility] Office Visiton 11-26-2024 Follow-up visit [id number] Noel Paul 1990 F Date Provider Department Center 11/26/2024 264-ELCARTERR, KAT MP ORTHO MPORTHO No family history on file Level of Service:81886 [place] OFFICE/OUTPATIENT NEW LOW MDM 30 MINUTES (GC) Reason for Visit and Comments: Pain [136] [facility] 36on 11-23-2024 36 LVM to confirm appt [facility] Surgical Pathology Reporton 09-12-2024 Surgical Pathology Report [facility] [address] [place] [address]- Surgical Pathology Report Collected Date/Time: 09/05/2024 08:32 EDT Pathologist: Joon LONG PhD, Benito Piedra Received Date/Time: 09/06/2024 07:35 EDT Valentino ISAACS, Pato Avelar DPM, Pato Hudson Surgical Pathology Report - [...] DIAGNOSIS. Addition of clinical information only. Normal [facility] Comment on above: Performed By: #### 4 [id number] #### [facility] [address] [place] [address] Surgical Pathology Reporton 09-11-2024 Surgical Pathology Report [address] [address]- Surgical Pathology Report Collected Date/Time: 09/05/2024 08:32 EDT Pathologist: Joon LONG PhD, Benito Piedra Received Date/Time: 09/06/2024 07:35 EDT Valentino ISAACS, Pato Avelar DPM, Pato Hudson Surgical Pathology Report - [...] submitted in one cassette after decalcification. (DC) DC:[facility] Microscopic Description Microscopic examination performed unless gross only specified. Normal [facility] Comment on above: Performed By: #### 4 [id number] #### [facility] [address] [place] [address] Basic Metabolic Panelon 04-28 Creatinine Clr Calc Pharmacy 161.75 Normal [facility] Comment on above: Result Comment: PERF ORMED BY: [place] [address] PATHOLOGIST TRANSCRIPTION SPECIALIST SIMEON BIGGS M.D. Performed By: #### B MP #### [place] [address] [place] GFR/1.73 sq M.predicted MDRD (S/P/Bld) [Vol rate/Area] mL/min/{1.73_m2} Normal [facility] Comment on above: Performed By: #### B MP #### [facility] [address] [place] [address] [place] Calcium [Mass/volume] in Ser um or PlasmaOrdered By: Sean Ruano on 05-16-2024 Calcium [Mass/Vol] 8.8 mg/dL Normal 8.6-10.3 [facility] Comment on above: Performed By: #### B MP #### [facility] [address] [place] [address] [facility] Capillary blood glucose jaswinder urement by glucometer (mass/volume)Ordered By: Pato Avelar on 05-16-2024 Glucose [Mass/Vol] 106 mg/dL Normal [facility] Comment on above: Random Glucose Refer ence Range is dependent on time and content of last meal. Glucose of more than 200 mg/dL in a nonstressed, ambulatory subject supports the diagnosis of Diabetes Mellitus. Result Comment: [place] Glucose Reference Range is dependent on time and content of last meal. Glucose of more than 200 mg/dL in a nonstressed, ambulatory subject supports the diagnosis of Diabetes Mellitus. Performed By: #### G BARAK #### Point of Care testing , Carbon dioxide, total [Moles /volume] in Serum or PlasmaOrdered By: Sean Ruano on 05-16-2024 CO2 [Moles/Vol] 27.3 mmol/L Normal 21.0-31.0 [facility] Comment on above: Performed By: #### B MP #### [facility] [address] [place] [address] [place] Chloride [Moles/volume] in S nikkie or PlasmaOrdered By: Sean Ruano on 05-16-2024 Chloride [Moles/Vol] 105 mmol/L Normal 98-107 [facility] Comment on above: Performed By: #### B MP #### [facility] [address] [place] [address] [place] Creatinine [Mass/volume] in Serum or PlasmaOrdered By: Sean Ruano on 05-16-2024 Creatinine [Mass/Vol] 0.66 mg/dL Normal 0.60-1.20 [facility] Comment on above: Performed By: #### B MP #### [address] Glucose Poct Glucometerson 0 05-16-2024 Commemt1 Glu2: Cleaned Meter Normal [facility] Comment on above: Result Comment: PERF ORMED BY: [place] [address] PATHOLOGIST TRANSCRIPTION SPECIALIST SIMEON BIGGS M.D. Performed By: #### G LULS #### Point of Care testing , Glucose [Mass/volume] in Ser um or PlasmaOrdered By: Sean Ruano on 05-16-2024 Glucose [Mass/Vol] 107 mg/dL High 70-100 [facility] Comment on above: ADA recommended refe rence rangeRandom Glucose Reference Range is dependent on time and content of last meal. Glucose of more than 200 mg/dL in a nonstressed, ambulatory subject supports the diagnosis of Diabetes Mellitus. Result Comment: [place] om Glucose Reference Range is dependent on time and content of last meal. Glucose of more than 200 mg/dL in a nonstressed, ambulatory subject supports the diagnosis of Diabetes Mellitus. ADA recommended reference range Performed By: #### B MP #### [address] HCG ( test) IA.rapi d Ql (U)Ordered By: Sean Ruano on 05-16-2024 HCG ( test) Ql (U) Negative [facility] HCG,Urineon 05-16-2024 Beta HCG ( test) Ql (U) Negative Normal [facility] Comment on above: Result Comment: PERF ORMED BY: [place] [address] PATHOLOGIST TRANSCRIPTION SPECIALIST SIMEON BIGGS M.D. Performed By: #### U HCG #### [place] [address] [facility] 05-16-2024 L Specimen: [id number] Received: 05/16/24 Status: KESHA Req Num: [id number] Spec Type: Surgical Subm Dr: Pato Avelar DPM Tissues: A Bone Fragments - Other than Path Fracture (ACCESSORY BONE LT FOOT) Procedures: HE, Gross/Micro L3, Decalcification Age/ Patient Sex Location Account Attending Physician Noel Paul 33/F [place] [id number] Pato Avelar DPM SPEC NUM: [id number] RECD: 05/16/24 STATUS: KESHA REQ NUM: [id number] BRUNO: 05/16/24- SUBM DR: Pato Avelar DPM ENTERED: 05/16/24 [facility] DR: SPEC TYPE: Surgical DEPT: S [...] areas of necrosis or cysts are present. Insurance Rater sections are submitted following decalcification in A1. CPT Codes 80966, 00860 -------- -------- Specimen: [id number] Received: 05/16/24-1257 Status: KESHA Romo Num: [id number] Spec Type: Surgical Subm Dr: Pato Avelar DPM Tissues: A Bone Fragments - Other than Path Fracture (ACCESSORY BONE LT FOOT) Procedures: HE, Gross/Micro L3, Decalcification -------- Patient: Noel Paul [id number] (Continued) -------- Signed (signature on file) Tabatha Dupree MD 05/19/24 1640 Normal [facility] No Panel InformationOrdered By: Pato Avelar on 05-16-2024 Bedside Glucose Comment Glu2: cleaned meter [facility] No Panel InformationOrdered By: Sean Ruano on 05-16-2024 Estimated GFR (CKD-EPI) > 60.0 mL/Min [facility] Creatinine Clearance (Chem 161.75 [facility] Potassium [Moles/volume] in Serum or PlasmaOrdered By: Sean Ruano on 05-16-2024 Potassium [Moles/Vol] 3.8 mmol/L Normal 3.5-5.1 [facility] Comment on above: Performed By: #### B MP #### [address] Serum or plasma anion gap de terminationOrdered By: Sean Ruano on 05-16-2024 Anion gap [Moles/Vol] 9.5 mmol/L Normal 6.0-15.0 [facility] Comment on above: Performed By: #### B MP #### [address] Sodium [Moles/volume] in Ser um or PlasmaOrdered By: Sean Ruano on 05-16-2024 Sodium [Moles/Vol] 138 mmol/L Normal 136-145 [facility] Comment on above: Performed By: #### B MP #### [address] Urea nitrogen [Mass/volume] in Serum or PlasmaOrdered By: Sean Ruano on 05-16-2024 Urea nitrogen [Mass/Vol] 17 mg/dL Normal 7-25 [facility] Comment on above: Performed By: #### B MP #### [address] XR foot LT 2Von 05-16-2024 XR foot LT 2V [facility] Main [place] [address] [place] [address] XRay Report Signed Patient: Noel Paul MR#: [id number] : 1990 Acct:[id number] Age/Sex: 33 / F ADM Date: 05/16/24 Loc: [place] Room: Type: [facility] Attending Dr: Pato Avelar DPM Copies to: Pato Avelar DPM Ordering Provider: Pato Avelar DPM Date of Service: 05/16/24 XR/XR foot [...] Leisa Adames M.D.05/16/2024 3:20 PM Dictation Location: [place] [address] Transcribed By: [facility] 05/16/24 1520 Dictated By: Leisa Adames MD 05/16/24 1515 Signed By: 05/16/24 1520 Normal [facility] CBC w/ Auto Diffon 4 Basophils/100 WBC (Bld) 0.5 % Normal 0.0-2.0 [facility] Comment on above: Performed By: #### 2 [id number] #### [facility] [address] [place] [address] Basophils/Leukocytes Auto (Bld) [Pure # fraction] 0.1 E9/L Normal 0.0-0.2 [facility] Comment on above: Performed By: #### 2 [id number] #### [facility] [address] [place] [address] Eosinophils (Bld) [#/Vol] 0.3 E9/L Normal 0.0-0.5 [facility] Comment on above: Performed By: #### 2 [id number] #### [facility] [address] [place] [address] Eosinophils/100 WBC (Bld) 2.9 % Normal 0.0-8.0 [facility] Comment on above: Performed By: #### 2 [id number] #### [facility] [address] [place] [address] Erythrocyte distribution width (RBC) [Ratio] 15.6 % High 10.9-14.2 [facility] Comment on above: Performed By: #### 2 [id number] #### [facility] [address] [place] [address] Hematocrit (Bld) [Volume fraction] 39.9 % Normal 34.0-46.0 [facility] Comment on above: Performed By: #### 2 [id number] #### [facility] [address] [place] [address] Hemoglobin (Bld) [Mass/Vol] 12.8 g/dL Normal 12.0-16.0 [facility] Comment on above: Performed By: #### 2 [id number] #### [facility] [address] [place] [address] Lymphocytes (Bld) [#/Vol] 2.3 E9/L Normal 1.0-4.0 [facility] Comment on above: Performed By: #### 2 [id number] #### [facility] [address] [place] [address] Lymphocytes/100 WBC (Bld) 20.9 % Normal 14.0-50.0 [facility] Comment on above: Performed By: #### 2 [id number] #### [facility] [address] [place] [address] MCH (RBC) [Entitic mass] 25.4 pg Low 27.0-34.0 [facility] Comment on above: Performed By: #### 2 [id number] #### [facility] [address] [place] [address] MCHC (RBC) [Mass/Vol] 32.2 g/dL Normal 31.4-36.0 [facility] Comment on above: Performed By: #### 2 [id number] #### [facility] [address] [place] [address] MCV (RBC) [Entitic vol] 79.0 fL Low 80.0-100.0 [facility] Comment on above: Performed By: #### 2 [id number] #### [facility] [address] [place] [address] Monocytes (Bld) [#/Vol] 0.7 E9/L Normal 0.2-1.0 [facility] Comment on above: Performed By: #### 2 [id number] #### [facility] [address] [place] [address] Neutrophils (Bld) [#/Vol] 7.7 E9/L High 2.0-7.5 [facility] Comment on above: Performed By: #### 2 [id number] #### [facility] [address] [place] [address] Neutrophils/100 WBC (Bld) 69.3 % Normal 36.0-75.0 [facility] Comment on above: Performed By: #### 2 [id number] #### [facility] [address] [place] [address] Platelet mean volume (Bld) [Entitic vol] 8.3 fL Normal 6.4-10.8 [facility] Comment on above: Performed By: #### 2 [id number] #### [facility] [address] [place] [address] Platelets (Bld) [#/Vol] 346.0 E9/L Normal 150.0-500.0 [facility] Comment on above: Performed By: #### 2 [id number] #### [facility] [address] [place] [address] RBC (Bld) [#/Vol] 5.1 E12/L Normal 4.3-5.9 [facility] Comment on above: Performed By: #### 2 [id number] #### [facility] [address] [place] [address] WBC corrected for nucl RBC Auto (Bld) [#/Vol] 11.1 E9/L High 4.0-11.0 [facility] Comment on above: Performed By: #### 2 [id number] #### [facility] [address] [place] [address] Consent for Treatmenton 03-29 Consent for Treatment [id number] Normal [facility] HEMATOLOGYOrdered By: SYSTEM SYSTEM on [...] Remisol Heme Physician Orderon 04-18-2024 Physician Order [id number] Normal [facility] XR shoulder RT min 2V*on XR shoulder RT min 2V* [facility] Main [place] [address] [place] [address] XRay Report Signed Patient: Noel Paul MR#: [id number] : 1990 Acct:[id number] Age/Sex: 33 / F ADM Date: 02/27/24 Loc: [facility] Room: Type: [facility] Attending Dr: Monique SANDOVAL Copies to: LORI [...] Leisa Adames M.D.02/27/2024 6:14 PM Dictation Location: [place] [address] Transcribed By: [facility] 02/27/241813 Dictated By: Leisa Adames MD 02/27/241812 Signed By: 02/27/241813 Normal [facility] GLYCOHEMOGLOBIN A1Con 2022 ADA RECOMMENDATION SEE BELOW Normal [facility] Comment on above: Result Comment: ADA RECOMMENDED LIMIT 4.0 - 6.0 ADA THERAPEUTIC TARGET < 7.0 ACTION SUGGESTED > 7.0 Performed By: #### A 1C #### [facility] [address] [address] [address] Benito Dupree Glucose [Mass/Vol] 105 mg/dL Normal [facility] Comment on above: Performed By: #### A 1C #### [facility] [address] [address] [address] Benito Dupree HbA1c (Bld) [Mass fraction] 5.3 % Normal 4.5-6.2 [facility] Comment on above: Performed By: #### A 1C #### [facility] [address] [address] [address] Benito Dupree Covid-19 PCR ([facility])on SARS-CoV-2 (COVID-19) RNA MUKUND+probe Ql (Unsp spec) Not detected Normal NOT DETECTED [facility] Comment on above: Result Comment: This test is not yet approved or cleared by the [place] FDA. When there are no FDA-approved or cleared tests available, and other criteria are met, FDA can make tests available under an emergency access mechanism called an Emergency Use Authorization (EUA). The EUA for this test is supported by the [place] of Health and Human Service's (HHS's) declaration [...] SARS-CoV-2. Performed By: #### C VDTBH #### [facility] [address] [place] [address] Dr. Benito Dupree INFLUENZA A AND B AGon 01-05 INFLUANEGH SEE BELOW Normal [facility] Comment on above: Result Comment: Nega tive for Flu A protein angiten. Infection due to Flu A cannot be ruled out. Flu A angiten in the sample may be below the detection limit of the test. Performed By: #### I NFLUAB #### [facility] [address] [place] [address] Dr. Benito Dupree INFLUBNEGH SEE BELOW Normal [facility] Comment on above: Result Comment: Nega tive for Flu B protein antigen. Infection due to Flu B cannot be ruled out. Flu B antigen in the sample may be below the detection limit of the test. Performed By: #### I NFLUAB #### [facility] [address] [place] [address] Dr. Benito Dupree INFLUENZA A AG Negative Normal NEGATIVE SEE COMMENT [facility] Comment on above: Performed By: #### I NFLUAB #### [facility] [address] [place] [address] Dr. Benito Dupree INFLUENZA B AG Negative Normal NEGATIVE SEE COMMENT [facility] Comment on above: Performed By: #### I NFLUAB #### [facility] [address] [place] [address] Dr. Benito Dupree GLYCOHEMOGLOBIN A1Con 2021 ADA RECOMMENDATION SEE BELOW Normal [facility] Comment on above: Result Comment: ADA RECOMMENDED LIMIT 4.0 - 6.0 ADA THERAPEUTIC TARGET < 7.0 ACTION SUGGESTED > 7.0 Performed By: #### A 1C #### [facility] [address] [place] [address] Dr. Benito Dupree Glucose [Mass/Vol] 143 mg/dL Normal [facility] Comment on above: Performed By: #### A 1C #### [facility] [address] [place] [address] Dr. Benito Dupree HbA1c (Bld) [Mass fraction] 6.6 % Critically high 4.5-6.2 [facility] Comment on above: Performed By: #### A 1C #### [facility] [address] [place] [address] Dr. Benito Dupree LIPID PROFILEon 11-15-2022 CHOL-HDL RATIO NORM SEE BELOW Normal [facility] Comment on above: Result Comment: 3.3 - 4.4 LOW RISK 4.4 - 7.1 AVERAGE RISK 7.1 - 11.0 MODERATE RISK >11.0 HIGH RISK Performed By: #### I NFLUAB #### [facility] [address] [address] [address] Benito Dupree Cholesterol [Mass/Vol] 154 mg/dL Normal <=200 [facility] Comment on above: Performed By: #### I NFLUAB #### [facility] [address] [address] [address] Benito Dupree Cholesterol in HDL [Mass/Vol] 29 mg/dL Critically low 40-60 [facility] Comment on above: Performed By: #### I NFLUAB #### [facility] [address] [place] [address] Dr. Benito Dupree Cholesterol in LDL [Mass/Vol] 98.2 mg/dL Normal [facility] Comment on above: Performed By: #### I NFLUAB #### [facility] [address] [place] [address] Dr. Benito Dupree Cholesterol.total/Lisandra sterol in HDL [Mass ratio] 5.3 {ratio} Normal [facility] Comment on above: Performed By: #### I NFLUAB #### [facility] [address] [place] [address] Dr. Benito Dupree HDL NORMAL > or = 60 mg/dl - LO W CARDIOVASCULAR RISK <40 mg/dl - HIGH CARDIOVASCULAR RISK Normal [facility] Comment on above: Performed By: #### I NFLUAB #### [facility] [address] [place] [address] Dr. Benito Dupree LDL CALC NORMAL SEE BELOW Normal [facility] Comment on above: Result Comment: <100 mg/dl OPTIMAL 100 - 129 mg/dl NEAR OR ABOVE OPTIMAL 130 - 159 mg/dl BORDERLINE HIGH 160 - 189 mg/dl HIGH >190 mg/dl VERY HIGH Performed By: #### I NFLUAB #### [facility] [address] [place] [address] Dr. Benito Dupree Triglyceride [Mass/Vol] 134 mg/dL Normal <=150 [facility] Comment on above: Performed By: #### I NFLUAB #### [facility] [address] [place] [address] Dr. Benito Dupree VLDL CALC 26.8 mg/dL Normal [facility] Comment on above: Performed By: #### I NFLUAB #### [facility] [address] [place] [address] Dr. Benito Dupree INSULINon 08-19-2022 Insulin 24.3 uIU/mL Normal 2.6-24.9 [facility] Comment on above: Performed By: #### I NFLUAB #### [facility] [address] [place] [address] Dr. Benito Dupree T4, T3U, FTI LABCORPon 08-19 Free Thyroxine Index 2.6 Normal 1.2-4.9 [facility] Comment on above: Performed By: #### T HYLC #### [facility] [address] [place] [address] Dr. Benito Dupree T3 Uptake 29 % Normal 24-39 [facility] Comment on above: Performed By: #### T HYLC #### [facility] [address] [place] [address] Dr. Benito Dupree T4 [Mass/Vol] 8.8 ug/dL Normal 4.5-12.0 [facility] Comment on above: Performed By: #### T HYLC #### [facility] [address] [place] [address] Dr. Benito Dupree CBC AUTO DIFFon 08-18-2022 BASO # 0.1 103/ul Normal 0.0-0.1 [facility] Comment on above: Performed By: #### I NFLUAB #### [facility] [address] [place] [address] Dr. Benito Dupree Basophils/100 WBC (Bld) 0.8 % Normal 0.2-2.0 [facility] Comment on above: Performed By: #### I NFLUAB #### [facility] [address] [place] [address] Dr. Benito Dupree EO # 0.3 103/ul Normal 0.0-0.7 [facility] Comment on above: Performed By: #### I NFLUAB #### [facility] [address] [place] [address] Dr. Benito Dupree Eosinophils/100 WBC (Bld) 2.8 % Normal 0.9-7.0 [facility] Comment on above: Performed By: #### I NFLUAB #### [facility] [address] [place] [address] Dr. Benito Dupree Erythrocyte distribution width (RBC) [Ratio] 15.4 % Critically high 11.0-15.0 [facility] Comment on above: Performed By: #### I NFLUAB #### [facility] [address] [place] [address] Dr. Benito Dupree Hematocrit (Bld) [Volume fraction] 43.7 % Normal 36.0-48.0 [facility] Comment on above: Performed By: #### I NFLUAB #### [facility] [address] [place] [address] Dr. Benito Dupree Hemoglobin (Bld) [Mass/Vol] 14.2 g/dL Normal 12.0-16.0 [facility] Comment on above: Performed By: #### I NFLUAB #### [facility] [address] [place] [address] Dr. Benito Dupree IG # 0.08 10e3/ul Critically high 0.00-0.03 [facility] Comment on above: Performed By: #### I NFLUAB #### [facility] [address] [place] [address] Dr. Benito Dupree IG % 0.9 % Critically high 0.0-0.5 [facility] Comment on above: Performed By: #### I NFLUAB #### [facility] [address] [place] [address] Dr. Benito Dupree LYMPH # 2.3 103/ul Normal 1.2-3.8 [facility] Comment on above: Performed By: #### I NFLUAB #### [facility] [address] [place] [address] Dr. Benito Dupree Lymphocytes/100 WBC (Bld) 24.3 % Normal 20.5-60.0 [facility] Comment on above: Performed By: #### I NFLUAB #### [facility] [address] [place] [address] Dr. Benito Dupree MANUAL DIFF REQ NO Normal [facility] Comment on above: Performed By: #### I NFLUAB #### [facility] [address] [place] [address] Dr. Benito Dupree MCH (RBC) [Entitic mass] 26.1 pg Critically low 26.7-34.0 [facility] Comment on above: Performed By: #### I NFLUAB #### [facility] [address] [place] [address] Dr. Benito Dupree MCHC (RBC) [Mass/Vol] 32.5 g/dL Normal 29.9-35.2 [facility] Comment on above: Performed By: #### I NFLUAB #### [facility] [address] [place] [address] Dr. Benito Dupree MCV (RBC) [Entitic vol] 80.2 fL Critically low 81.0-99. 0 [facility] Comment on above: Performed By: #### I NFLUAB #### [facility] [address] [place] [address] Dr. Benito Dupree MONO # 0.5 103/ul Normal 0.3-0.8 [facility] Comment on above: Performed By: #### I NFLUAB #### [facility] [address] [place] [address] Dr. Benito Dupree Monocytes/100 WBC (Bld) 5.2 % Normal 1.7-12.0 [facility] Comment on above: Performed By: #### I NFLUAB #### [facility] [address] [place] [address] Dr. Benito Dupree NEUT # 6.1 103/ul Normal 1.4-6.5 [facility] Comment on above: Performed By: #### I NFLUAB #### [facility] [address] [place] [address] Dr. Benito Dupree Neutrophils/100 WBC (Bld) 66.0 % Normal 43.0-75.0 [facility] Comment on above: Performed By: #### I NFLUAB #### [facility] [address] [address] [address] Benito Dupree Platelet mean volume (Bld) [Entitic vol] 9.9 fL Normal 9.5-13.5 [facility] Comment on above: Performed By: #### I NFLUAB #### [facility] [address] [place] [address] Dr. Benito Dupree PLT 291 103/ul Normal 150-450 [facility] Comment on above: Performed By: #### I NFLUAB #### [facility] [address] [place] [address] Dr. Benito Dupree RBC 5.45 106/ul Critically high 4.20-5.40 [facility] Comment on above: Performed By: #### I NFLUAB #### [facility] [address] [place] [address] Dr. Benito Dupree WBC 9.3 103/ul Normal 4.0-11.0 [facility] Comment on above: Performed By: #### I NFLUAB #### [facility] [address] [place] [address] Dr. Benito Dupree DIRECT LDLon 08-18-2022 Cholesterol in LDL [Mass/Vol] 50 mg/dL Normal [facility] Comment on above: Performed By: #### T HYLC #### [facility] [address] [place] [address] Dr. Benito Dupree DLDL NORMAL SEE BELOW Normal [facility] Comment on above: Result Comment: <100 mg/dl OPTIMAL 100 - 129 mg/dl NEAR OR ABOVE OPTIMAL 130 - 159 mg/dl BORDERLINE HIGH 160 - 189 mg/dl HIGH >190 mg/dl VERY HIGH Performed By: #### T HYLC #### [facility] [address] [place] [address] Dr. Benito Dupree GLYCOHEMOGLOBIN A1Con 2021 ADA RECOMMENDATION SEE BELOW Normal [facility] Comment on above: Result Comment: ADA RECOMMENDED LIMIT 4.0 - 6.0 ADA THERAPEUTIC TARGET < 7.0 ACTION SUGGESTED > 7.0 Performed By: #### A 1C #### [facility] [address] [place] [address] Dr. Benito Dupree Glucose [Mass/Vol] 332 mg/dL Normal [facility] Comment on above: Performed By: #### A 1C #### [facility] [address] [place] [address] Dr. Benito Dupree HbA1c (Bld) [Mass fraction] 13.2 % Critically high 4.5-6.2 [facility] Comment on above: Performed By: #### A 1C #### [facility] [address] [place] [address] Dr. Benito Dupree IRONon 08-18-2022 Iron [Mass/Vol] 53.0 ug/dL Normal 50.0-170.0 [facility] Comment on above: Performed By: #### I NFLUAB #### [facility] [address] [place] [address] Dr. Benito Dupree LIPID PROFILEon 08-18-2022 CHOL-HDL RATIO NORM SEE BELOW Normal [facility] Comment on above: Result Comment: 3.3 - 4.4 LOW RISK 4.4 - 7.1 AVERAGE RISK 7.1 - 11.0 MODERATE RISK >11.0 HIGH RISK Performed By: #### T HYLC #### [facility] [address] [place] [address] Dr. Benito Dupree Cholesterol [Mass/Vol] 260 mg/dL Critically high <=200 [facility] Comment on above: Performed By: #### T HYLC #### [facility] [address] [place] [address] Dr. Benito Dupree Cholesterol in HDL [Mass/Vol] 23 mg/dL Critically low 40-60 [facility] Comment on above: Performed By: #### T HYLC #### [facility] [address] [place] [address] Dr. Benito Dupree Cholesterol.total/Lisandra sterol in HDL [Mass ratio] 11.3 {ratio} Normal [facility] Comment on above: Performed By: #### T HYLC #### [facility] [address] [address] [address] Benito Dupree HDL NORMAL > or = 60 mg/dl - LO W CARDIOVASCULAR RISK <40 mg/dl - HIGH CARDIOVASCULAR RISK Normal [facility] Comment on above: Performed By: #### T HYLC #### [facility] [address] [address] [address] Benito Dupree Triglyceride [Mass/Vol] 1711 mg/dL Critically high <=150 [facility] Comment on above: Performed By: #### T HYLC #### [facility] [address] [address] [address] Benito Dupree VLDL CALC 342.2 mg/dL Normal [facility] Comment on above: Performed By: #### T HYLC #### [facility] [address] [place] [address] Dr. Benito Dupree PROF 14(COMP METB)on 022 Albumin [Mass/Vol] 3.2 g/dL Critically low 3.4-5.0 [facility] Comment on above: Performed By: #### T HYLC #### [facility] [address] [place] [address] Dr. Benito Dupree Albumin/Globulin [Mass ratio] 0.7 {ratio} Normal [facility] Comment on above: Performed By: #### T HYLC #### [facility] [address] [place] [address] Dr. Benito Dupree ALP [Catalytic activity/Vol] 92 U/L Normal 46-116 [facility] Comment on above: Performed By: #### T HYLC #### [facility] [address] [address] [address] Benito Dupree ALT [Catalytic activity/Vol] 41 U/L Normal 14-59 [facility] Comment on above: Performed By: #### T HYLC #### [facility] [address] [address] [address] Benito Dupree Anion gap [Moles/Vol] 14.1 mmol/L Normal [facility] Comment on above: Performed By: #### T HYLC #### [facility] [address] [address] [address] Benito Dupree AST [Catalytic activity/Vol] 16 U/L Normal 15-37 [facility] Comment on above: Performed By: #### T HYLC #### [facility] [address] [address] [address] Benito Dupree Bilirubin [Mass/Vol] 0.9 mg/dL Normal 0.2-1.0 [facility] Comment on above: Performed By: #### T HYLC #### [facility] [address] [address] [address] Benito Dupree Calcium [Mass/Vol] 9.1 mg/dL Normal 8.5-10.[address] [facility] Comment on above: Performed By: #### T HYLC #### [facility] [address] [place] [address] Dr. Benito Dupree Chloride [Moles/Vol] 97 mmol/L Critically low 98-107 [facility] Comment on above: Performed By: #### T HYLC #### [facility] [address] [place] [address] Dr. Benito Dupree CO2 [Moles/Vol] 24.9 mmol/L Normal 21.0-32.0 [facility] Comment on above: Performed By: #### T HYLC #### [facility] [address] [place] [address] Dr. Benito Dupree Creatinine [Mass/Vol] 0.67 mg/dL Normal 0.55-1.02 [facility] Comment on above: Performed By: #### T HYLC #### [facility] [address] [address] [address] Benito Dupree EGFR-AF ITALIAN >60 Normal >=[address] [facility] Comment on above: Performed By: #### T HYLC #### [facility] [address] [address] [address] Benito Dupree EGFR-NON AF ITALIAN >60 Normal >=60 [facility] Comment on above: Performed By: #### T HYLC #### [facility] [address] [address] [address] Benito Dupree Globulin (S) [Mass/Vol] 4.6 g/dL Normal [facility] Comment on above: Performed By: #### T HYLC #### [facility] [address] [address] [address] Benito Dupree Glucose [Mass/Vol] 402 mg/dL Critically high 74-106 [facility] Comment on above: Performed By: #### T HYLC #### [facility] [address] [address] [address] Benito Dupree Potassium [Moles/Vol] 4.0 mmol/L Normal 3.5-5.1 [facility] Comment on above: Performed By: #### T HYLC #### [facility] [address] [place] [address] Dr. Benito Dupree Protein [Mass/Vol] 7.8 g/dL Normal 6.4-8.[address] [facility] Comment on above: Performed By: #### T HYLC #### [facility] [address] [address] [address] Benito Dupree Sodium [Moles/Vol] 132 mmol/L Critically low 136-145 [facility] Comment on above: Performed By: #### T HYLC #### [facility] [address] [place] [address] Dr. Benito Dupree Urea nitrogen [Mass/Vol] 10.0 mg/dL Normal 7.0-18.0 [facility] Comment on above: Performed By: #### T HYLC #### [facility] [address] [place] [address] Dr. Benito Dupree Urea nitrogen/Creatinine [Mass ratio] 14.9 mg/mg Normal [facility] Comment on above: Performed By: #### T HYLC #### [facility] [address] [place] [address] Dr. Benito Dupree TSHon 08-18-2022 TSH 3.676 uIU/mL Normal 0.358-3.740 [facility] Comment on above: Performed By: #### T HYLC #### [facility] [address] [place] [address] Dr. Benito Dupree VITAMIN D 25 OHon 08-18-2022 VIT D 25-OH 13.9 ng/mL Normal [facility] Comment on above: Performed By: #### I NFLUAB #### [facility] [address] [place] [address] Dr. Benito Dupree VIT D RANGES SEE BELOW Normal [facility] Comment on above: Result Comment: <20 ng/mL Vit D deficient 20 - <30 ng/mL Vit D insufficient 30 - 100 ng/mL Vit D sufficient >100 ng/mL Potential Toxicity Performed By: #### I NFLUAB #### [facility] [address] [place] [address] Dr. Benito Dupree AMYLASEon 06-01-2022 Amylase [Catalytic activity/Vol] 29 U/L Normal 25-115 [facility] Comment on above: Performed By: #### I NFLUAB #### [facility] [address] [place] [address] Dr. Benito Dupree CBC AUTO DIFFon 06-01-2022 BASO # 0.1 103/ul Normal 0.0-0.1 [facility] Comment on above: Performed By: #### I NFLUAB #### [facility] [address] [place] [address] Dr. Benito Dupree Basophils/100 WBC (Bld) 0.5 % Normal 0.2-2.0 [facility] Comment on above: Performed By: #### I NFLUAB #### [facility] [address] [place] [address] Dr. Benito Dupree EO # 0.3 103/ul Normal 0.0-0.7 [facility] Comment on above: Performed By: #### I NFLUAB #### [facility] [address] [place] [address] Dr. Benito Dupree Eosinophils/100 WBC (Bld) 2.0 % Normal 0.9-7.0 [facility] Comment on above: Performed By: #### I NFLUAB #### [facility] [address] [place] [address] Dr. Benito Dupree Erythrocyte distribution width (RBC) [Ratio] 15.3 % Critically high 11.0-15.0 [facility] Comment on above: Performed By: #### I NFLUAB #### [facility] [address] [place] [address] Dr. Benito Dupree Hematocrit (Bld) [Volume fraction] 41.5 % Normal 36.0-48.0 [facility] Comment on above: Performed By: #### I NFLUAB #### [facility] [address] [place] [address] Dr. Benito Dupree Hemoglobin (Bld) [Mass/Vol] 12.7 g/dL Normal 12.0-16.0 [facility] Comment on above: Performed By: #### I NFLUAB #### [facility] [address] [place] [address] Dr. Benito Dupree IG # 0.06 10e3/ul Critically high 0.00-0.03 [facility] Comment on above: Performed By: #### I NFLUAB #### [facility] [address] [place] [address] Dr. Benito Dupree IG % 0.4 % Normal 0.0-0.5 [facility] Comment on above: Performed By: #### I NFLUAB #### [facility] [address] [place] [address] Dr. Benito Dupree LYMPH # 1.9 103/ul Normal 1.2-3.8 [facility] Comment on above: Performed By: #### I NFLUAB #### [facility] [address] [place] [address] Dr. Benito Dupree Lymphocytes/100 WBC (Bld) 13.9 % Critically low 20.5-60.0 [facility] Comment on above: Performed By: #### I NFLUAB #### [facility] [address] [place] [address] Dr. Benito Dupree MANUAL DIFF REQ NO Normal [facility] Comment on above: Performed By: #### I NFLUAB #### [facility] [address] [address] [address] Benito Dupree MCH (RBC) [Entitic mass] 24.7 pg Critically low 26.7-34.0 [facility] Comment on above: Performed By: #### I NFLUAB #### [facility] [address] [place] [address] Dr. Benito Dupree MCHC (RBC) [Mass/Vol] 30.6 g/dL Normal 29.9-35.2 [facility] Comment on above: Performed By: #### I NFLUAB #### [facility] [address] [place] [address] Dr. Benito Dupree MCV (RBC) [Entitic vol] 80.6 fL Critically low 81.0-99. 0 [facility] Comment on above: Performed By: #### I NFLUAB #### [facility] [address] [place] [address] Dr. Benito Dupree MONO # 0.5 103/ul Normal 0.3-0.8 [facility] Comment on above: Performed By: #### I NFLUAB #### [facility] [address] [place] [address] Dr. Benito Dupree Monocytes/100 WBC (Bld) 4.0 % Normal 1.7-12.0 [facility] Comment on above: Performed By: #### I NFLUAB #### [facility] [address] [place] [address] Dr. Benito Dupree NEUT # 10.6 103/ul Critically high 1.4-6.5 [facility] Comment on above: Performed By: #### I NFLUAB #### [facility] [address] [place] [address] Dr. Benito Dupree Neutrophils/100 WBC (Bld) 79.2 % Critically high 43.0-75.0 [facility] Comment on above: Performed By: #### I NFLUAB #### [facility] [address] [place] [address] Dr. Benito Dupree Platelet mean volume (Bld) [Entitic vol] 9.3 fL Critically low 9.5-13.5 [facility] Comment on above: Performed By: #### I NFLUAB #### [facility] [address], [place] [address] Dr. Benito Dupree PLT 391 103/ul Normal 150-450 [facility] Comment on above: Performed By: #### I NFLUAB #### [facility] [address] [place], [place] [address] Dr. Benito Dupree RBC 5.15 106/ul Normal 4.20-5.40 [facility] Comment on above: Performed By: #### I NFLUAB #### [facility] [address], [place] [address] Dr. Benito Dupree WBC 13.4 103/ul Critically high 4.0-11.0 [facility] Comment on above: Performed By: #### I NFLUAB #### [facility] [address] [address] ABD/PELV W CONon [...] WESTLEY JHA Date: 2022-06-01 14:59 Normal [facility] URINE PROFILEon 2 Bilirubin Ql (U) Negative Normal NEGATIVE [facility] Comment on above: Performed By: #### U MICRO, ERUR #### [facility] [address] [address] [address] Benito Dupree Clarity (U) SL CLOUDY Abnormal CLEAR [facility] Comment on above: Performed By: #### U MICRO, ERUR #### [facility] [address] [address] [address] Benito Dupree Color (U) YELLOW Normal YELLOW [facility] Comment on above: Performed By: #### U MICRO, ERUR #### [facility] [address] [place] [address] Dr. Benito MALHOTRAAHD A micrscopic examination will be performed if indicated. Normal [facility] Comment on above: Performed By: #### U MICRO, ERUR #### [facility] [address] [address] [address] Benito Dupree Glucose Ql (U) Negative Normal NEGATIVE [facility] Comment on above: Performed By: #### U MICRO, ERUR #### [facility] [address] [address] [address] Benito Dupree Hemoglobin Ql (U) LARGE Abnormal NEGATIVE [facility] Comment on above: Performed By: #### U MICRO, ERUR #### [facility] [address] [address] [address] Benito Dupree Ketones Ql (U) Negative Normal NEGATIVE [facility] Comment on above: Performed By: #### U MICRO, ERUR #### [facility] [address] [address] [address] Benito Dupree LEUKOCYTES Negative Normal NEGATIVE [facility] Comment on above: Performed By: #### U MICRO, ERUR #### [facility] [address] [place] [address] Dr. Benito Dupree Nitrite Ql (U) Negative Normal NEGATIVE [facility] Comment on above: Performed By: #### U MICRO, ERUR #### [facility] [address] [place] [address] Dr. Benito Dupree pH (U) 5.5 [pH] Normal 5-9 [facility] Comment on above: Performed By: #### U MICRO, ERUR #### [facility] [address] [place] [address] Dr. Benito Dupree SPEC GRAVITY 1.010 Normal 1.005-<=1.0 25 [facility] Comment on above: Performed By: #### U MICRO, ERUR #### [facility] [address] [place] [address] Dr. Benito Dupree UA PROTEIN TRACE Normal NEGATIVE/ TRACE [facility] Comment on above: Performed By: #### U MICRO, ERUR #### [facility] [address] [place] [address] Dr. Benito Dupree UR MICRO IND INDICATED Normal [facility] Comment on above: Performed By: #### U MICRO, ERUR #### [facility] [address] [place] [address] Dr. Benito Dupree Urobilinogen Qn (U) 1.0 {Tuyet'U}/dL Normal 0.2 - 1. 0 [facility] Comment on above: Performed By: #### U MICRO, ERUR #### [facility] [address] [place] [address] Dr. Benito Dupree LACTATE/LACTIC ACIDon 2021 Lactate [Moles/Vol] 1.1 mmol/L Normal 0.4-1.9 [facility] Comment on above: Performed By: #### L ACT #### [facility] [address] [place] [address] Dr. Benito Dupree LIPASEon 06-01-2022 Lipase [Catalytic activity/Vol] 111.0 U/L Normal 73.0-393.0 [facility] Comment on above: Performed By: #### I NFLUAB #### [facility] [address] [place] [address] Dr. Benito Dupree PREG HCG QUALon 06-01-2022 , QUAL Negative Normal NEGATIVE [facility] Comment on above: Performed By: #### P REG #### [facility] [address] [place] [address] Dr. Benito Dupree PROF 14(COMP METB)on 022 Albumin [Mass/Vol] 3.6 g/dL Normal 3.4-5.[address] [facility] Comment on above: Performed By: #### I NFLUAB #### [facility] [address] [place] [address] Dr. Benito Dupree Albumin/Globulin [Mass ratio] 0.7 {ratio} Normal [facility] Comment on above: Performed By: #### I NFLUAB #### [facility] [address] [place] [address] Dr. Benito Dupree ALP [Catalytic activity/Vol] 90 U/L Normal 46-116 [facility] Comment on above: Performed By: #### I NFLUAB #### [facility] [address] [place] [address] Dr. Benito Dupree ALT [Catalytic activity/Vol] 39 U/L Normal 14-59 [facility] Comment on above: Performed By: #### I NFLUAB #### [facility] [address] [place] [address] Dr. Bneito Dupree Anion gap [Moles/Vol] 13.0 mmol/L Normal [facility] Comment on above: Performed By: #### I NFLUAB #### [facility] [address] [place] [address] Dr. Benito Dupree AST [Catalytic activity/Vol] 25 U/L Normal 15-37 [facility] Comment on above: Performed By: #### I NFLUAB #### [facility] [address] [place] [address] Dr. Benito Dupree Bilirubin [Mass/Vol] 1.1 mg/dL Critically high 0.2-1.0 [facility] Comment on above: Performed By: #### I NFLUAB #### [facility] [address] [place] [address] Dr. Benito Dupree Calcium [Mass/Vol] 9.4 mg/dL Normal 8.5-10.[address] [facility] Comment on above: Performed By: #### I NFLUAB #### [facility] [address] [place] [address] Dr. Benito Dupree Chloride [Moles/Vol] 99 mmol/L Normal 98-107 [facility] Comment on above: Performed By: #### I NFLUAB #### [facility] [address] [place] [address] Dr. Benito Dupree CO2 [Moles/Vol] 27.3 mmol/L Normal 21.0-32.0 [facility] Comment on above: Performed By: #### I NFLUAB #### [facility] [address] [place] [address] Dr. Benito Dupree Creatinine [Mass/Vol] 0.87 mg/dL Normal 0.55-1.02 [facility] Comment on above: Performed By: #### I NFLUAB #### [facility] [address] [place] [address] Dr. Benito Dupree EGFR-AF ITALIAN >60 Normal >=60 [facility] Comment on above: Performed By: #### I NFLUAB #### [facility] [address] [place] [address] Dr. Benito Dupree EGFR-NON AF ITALIAN >60 Normal >=60 [facility] Comment on above: Performed By: #### I NFLUAB #### [facility] [address] [place] [address] Dr. Benito Dupree Globulin (S) [Mass/Vol] 4.8 g/dL Normal [facility] Comment on above: Performed By: #### I NFLUAB #### [facility] [address] [place] [address] Dr. Benito Dupree Glucose [Mass/Vol] 218 mg/dL Critically high 74-106 [facility] Comment on above: Performed By: #### I NFLUAB #### [facility] [address] [place] [address] Dr. Benito Dupree Potassium [Moles/Vol] 4.1 mmol/L Normal 3.5-5.1 [facility] Comment on above: Performed By: #### I NFLUAB #### [facility] [address] [place] [address] Dr. Benito Dupree Protein [Mass/Vol] 8.4 g/dL Critically high 6.4-8.2 [facility] Comment on above: Performed By: #### I NFLUAB #### [facility] [address] [place] [address] Dr. Benito Dupree Sodium [Moles/Vol] 135 mmol/L Critically low 136-145 [facility] Comment on above: Performed By: #### I NFLUAB #### [facility] [address] [place] [address] Dr. Benito Dupree Urea nitrogen [Mass/Vol] 15.0 mg/dL Normal 7.0-18.0 [facility] Comment on above: Performed By: #### I NFLUAB #### [facility] [address] [place] [address] Dr. Benito Dupree Urea nitrogen/Creatinine [Mass ratio] 17.2 mg/mg Normal [facility] Comment on above: Performed By: #### I NFLUAB #### [facility] [address] [place] [address] Dr. Benito Dupree URINE MICROSCOPIC ONLYon BACTERIA TRACE Abnormal NONE SEEN [facility] Comment on above: Performed By: #### U MICRO, ERUR #### [facility] [address] [place] [address] Dr. Benito Dupree Bacteria identified Cx Nom (U) NOT INDICATED Normal [facility] Comment on above: Performed By: #### U MICRO, ERUR #### [facility] [address] [place] [address] Dr. Benito Dupree CAST NONE SEEN Normal NONE SEEN [facility] Comment on above: Performed By: #### U MICRO, ERUR #### [facility] [address] [place] [address] Dr. Benito Dupree Crystals LM Nom (Urine sed) NONE SEEN Normal NONE SEEN [facility] Comment on above: Performed By: #### U MICRO, ERUR #### [facility] [address] [address] [address] Benito Dupree Epithelial cells LM Ql (Urine sed) MODERATE Abnormal NONE SEEN /RARE [facility] Comment on above: Performed By: #### U MICRO, ERUR #### [facility] [address] [address] [address] Benito Dupree MUCOUS TRACE Abnormal NONE SEEN [facility] Comment on above: Performed By: #### U MICRO, ERUR #### [facility] [address] [address] [address] Benito Dupree RBC 2-5 Abnormal 0-2 [facility] Comment on above: Performed By: #### U MICRO, ERUR #### [facility] [address] [address] [address] Benito Dupree WBC 0-2 Abnormal NONE SEEN [facility] Comment on above: Performed By: #### U MICRO, ERUR #### [facility] [address] [address] [address] Benito Dupree XR hand RT min 3V*on 022 XR hand RT min 3V* [facility] [employer] Other XR hand RT min 3V* [facility] [employer] Other XR hand RT min 3V* [address] [place] [address] [employer] [facility] [employer] Other XR hand RT min 3V* [place] [address] [employer] Other XR hand RT min 3V* XRay Report [employer] Other XR hand RT min 3V* Signed [employer] Other XR hand RT min 3V* Patient: Noel Paul MR#: [id number] [employer] Other XR hand RT min 3V* : 1990 Acct:[id number] [employer] Other XR hand RT min 3V* Age/Sex: 31 / F ADM Date: 03/22/22 [employer] Other XR hand RT min 3V* Loc: XDUCLY Room: Type: [facility] [employer] Other XR hand RT min 3V* Attending Dr: Monique SANDOVAL [employer] Other XR hand RT min 3V* Ordering Provider: LORI Dias [employer] Other XR hand RT min 3V* Date of Service: 03/22/22 [employer] Other XR hand RT min 3V* XR/XR hand RT min 3V*: Finger pain, right [employer] Other XR hand RT min 3V* Copies to: LORI Dias [employer] Other XR hand RT min 3V* 3 viewsRIGHT hand plain film [employer] Other XR hand RT min 3V* COMPARISON:None N [employer] Other XR hand RT min 3V* HISTORY:Fell going upstairs. RIGHT ring finger injury. [employer] Other XR hand RT min 3V* No fracture, dislocation or focal soft tissue abnormality seen. [employer] Other XR hand RT min 3V* XR/XR hand RT min 3V* [employer] Other XR hand RT min 3V* IMPRESSION:No acute findings [employer] Other XR hand RT min 3V* Impression dictated by: Ta Galvan M.D.03/22/2022 4:42 PM [employer] Other XR hand RT min 3V* Dictation Location: RADIO-PC-03 [employer] Other XR hand RT min 3V* Transcribed By: PWS 03/22/221641 [employer] Other XR hand RT min 3V* Dictated By: Ta Galvan DO 03/22/221641 [employer] Other XR hand RT min 3V* Signed By: [employer] Other XR hand RT min 3V* 03/22/221641 [facility] [employer] Other Vital Signs Date Time Vital Sign Value Performing Clinician Facility 12-28-2024 09:54-0500 Body height 157.5 cm Pacc 3 Work Phone: [facility] 12-28-2024 09:54-0500 Body mass index (BMI) [Ratio] 62.06 kg/m2 Pacc 3 Work Phone: [facility] 12-28-2024 09:54-0500 Body temperature 97.39 [degF] Pacc 3 Work Phone: [facility] 12-28-2024 09:54-0500 Body weight 153.9 kg Pacc 3 Work Phone: [facility] 12-28-2024 09:54-0500 Diastolic blood pressure 73 mm[Hg] Pacc 3 Work Phone: [facility] 12-28-2024 09:54-0500 Heart rate 104 /min Pacc 3 Work Phone: [facility] 12-28-2024 09:54-0500 Respiratory rate 16 /min Pacc 3 Work Phone: [facility] 12-28-2024 09:54-0500 SaO2% (BldA) [Mass fraction] 98 % Pacc 3 Work Phone: [facility] 12-28-2024 09:54-0500 Systolic blood pressure 130 mm[Hg] Pacc 3 Work Phone: [facility] 10-24-2024 14:24-0500 Body height 157.5 cm Pato Brown DPM Work Phone: [facility] 10-24-2024 14:24-0500 Body mass index (BMI) [Ratio] 56.7 kg/m2 Pato Brown DPM Work Phone: [facility] 10-24-2024 14:24-0500 Body weight 140.62 kg Pato Brown DPM Work Phone: [facility] 10-24-2024 14:24-0500 Respiratory rate 18 /min Pato Brown DPM Work Phone: [facility] 10-04-2024 14:48-0500 Body height 157.5 cm Pato Brown DPM Work Phone: [facility] 10-04-2024 14:48-0500 Body mass index (BMI) [Ratio] 56.7 kg/m2 Pato Brown DPM Work Phone: [facility] 10-04-2024 14:48-0500 Body weight 140.62 kg Pato Brown DPM Work Phone: [facility] 10-04-2024 14:48-0500 Diastolic blood pressure 79 mm[Hg] Pato Avelar DPM Work Phone: [facility] 10-04-2024 14:48-0500 Heart rate 82 /min Pato Brown DPM Work Phone: [facility] 10-04-2024 14:48-0500 Systolic blood pressure 129 mm[Hg] Pato Brown DPM Work Phone: [facility] 09-20-2024 14:37-0400 Body height 157.5 cm Pato Brown DPM Work Phone: [facility] 09-20-2024 14:37-0400 Body mass index (BMI) [Ratio] 56.7 kg/m2 Pato Brown DPM Work Phone: [facility] 09-20-2024 14:37-0400 Body weight 140.62 kg Pato Avelar DPM Work Phone: [facility] 09-20-2024 14:37-0400 Diastolic blood pressure 77 mm[Hg] Pato Avelar DPM Work Phone: [facility] 09-20-2024 14:37-0400 Heart rate 79 /min Pato Avelar DPM Work Phone: [facility] 09-20-2024 14:37-0400 Systolic blood pressure 126 mm[Hg] Pato Brown DPM Work Phone: [facility] 09-13-2024 14:46-0400 Body height 157.5 cm Pato Avelar DPM Work Phone: [facility] 09-13-2024 14:46-0400 Body mass index (BMI) [Ratio] 56.7 kg/m2 Pato Avelar DPM Work Phone: [facility] 09-13-2024 14:46-0400 Body weight 140.62 kg Pato Valentino DPM Work Phone: [facility] 09-13-2024 14:46-0400 Diastolic blood pressure 78 mm[Hg] Pato Valentino DPM Work Phone: [facility] 09-13-2024 14:46-0400 Heart rate 85 /min Pato Avelar DPM Work Phone: [facility] 09-13-2024 14:46-0400 Systolic blood pressure 123 mm[Hg] Pato Brown DPM Work Phone: [facility] 08-30-2024 14:58-0400 Body height 157.5 cm Pato Brown DPM Work Phone: [facility] 08-30-2024 14:58-0400 Body mass index (BMI) [Ratio] 56.7 kg/m2 Pato Brown DPM Work Phone: [facility] 08-30-2024 14:58-0400 Body weight 140.62 kg Pato Avelar DPM Work Phone: [facility] 08-30-2024 14:58-0400 Diastolic blood pressure 80 mm[Hg] Pato Avelar DPM Work Phone: [facility] 08-30-2024 14:58-0400 Heart rate 75 /min Pato Avelar DPM Work Phone: [facility] 08-30-2024 14:58-0400 Respiratory rate 18 /min Pato Avelar DPM Work Phone: [facility] 08-30-2024 14:58-0400 Systolic blood pressure 128 mm[Hg] Pato Avelar DPM Work Phone: [facility] 08-02-2024 14:52-0400 Body height 157.5 cm Pato Avelar DPM Work Phone: [facility] 08-02-2024 14:52-0400 Body mass index (BMI) [Ratio] 56.7 kg/m2 Pato Avelar DPM Work Phone: [facility] 08-02-2024 14:52-0400 Body weight 140.62 kg Pato Avelar DPM Work Phone: [facility] 08-02-2024 14:52-0400 Diastolic blood pressure 79 mm[Hg] Pato Avelar DPM Work Phone: [facility] 08-02-2024 14:52-0400 Heart rate 82 /min Pato Avelar DPM Work Phone: [facility] 08-02-2024 14:52-0400 Systolic blood pressure 127 mm[Hg] Pato Avelar DPM Work Phone: [facility] 07-24-2024 14:58-0400 Body height 157.5 cm Jaime Camargo DO Work Phone: [facility] 07-24-2024 14:58-0400 Body mass index (BMI) [Ratio] 56.7 kg/m2 Jaime Camargo DO Work Phone: [facility] 07-24-2024 14:58-0400 Body weight 140.62 kg Jaime Camargo DO Work Phone: [facility] 05-16-2024 15:25-0400 Diastolic blood pressure 70 mm[Hg] MACHINE II ENGRAVER-C Monique Lien Work Phone: [facility] 05-16-2024 15:25-0400 Heart rate 80 /min MACHINE II ENGRAVER-C Monique Lien Work Phone: [facility] 05-16-2024 15:25-0400 Respiratory rate 22 /min MACHINE II ENGRAVER-C Monique Lien Work Phone: [facility] 05-16-2024 15:25-0400 SaO2% (BldA) [Mass fraction] 94 % MACHINE II ENGRAVER-C Monique Lien Work Phone: [facility] 05-16-2024 15:25-0400 Systolic blood pressure 124 mm[Hg] MACHINE II ENGRAVER-C Monique Lien Work Phone: [facility] 05-16-2024 12:57-0400 Body temperature 98.6 [degF] MACHINE II ENGRAVER-C Monique Lien Work Phone: [facility] 05-16-2024 12:57-0400 Inhaled oxygen flow rate 6 L/min MACHINE II ENGRAVER-C Monique Lien Work Phone: [facility] 05-16-2024 10:38-0400 Body mass index (BMI) [Ratio] 56.5 kg/m2 MACHINE II ENGRAVER-C Monique Lien Work Phone: [facility] 05-16-2024 10:31-0400 Body height 157.48 cm MACHINE II ENGRAVER-C Monique Lien Work Phone: [facility] 05-16-2024 10:31-0400 Body weight 140.16 kg MACHINE II ENGRAVER-C Monique Lien Work Phone: [facility] 04-25-2024 13:27-0400 Diastolic blood pressure 85 mm[Hg] Pato Avelar [facility] 04-25-2024 13:27-0400 Heart rate 64 /min Pato Avelar [facility] 04-25-2024 13:27-0400 Mean blood pressure 103 mm[Hg] Pato Avelar [facility] 04-25-2024 13:27-0400 Systolic blood pressure 139 mm[Hg] Pato Avelar [facility] 04-25-2024 13:26-0400 Heart rate 65 /min Pato Avelar [facility] 04-25-2024 13:26-0400 Respiratory rate 16 /min Pato Avelar [facility] 04-25-2024 13:26-0400 SaO2% (BldA) [Mass fraction] 93 % Pato Avelar [facility] 04-25-2024 13:26-0400 Blood Pressure Location Pato Avelar [facility] 04-25-2024 13:26-0400 Body temperature 98.42 [degF] Pato Avelar [facility] 04-25-2024 13:26-0400 Diastolic blood pressure 83 mm[Hg] Pato Avelar [facility] 04-25-2024 13:26-0400 Mean blood pressure 100 mm[Hg] Pato Avelar [facility] 04-25-2024 13:26-0400 Systolic blood pressure 135 mm[Hg] Pato Avelar [facility] 02-27-2024 17:36-0400 Body height 154.94 cm LORI Emmanuel Work Phone: [facility] 02-27-2024 17:36-0400 Body mass index (BMI) [Ratio] 58.4 kg/m2 MACHINE II ENGRAVER-C Monique Emmanuel Work Phone: [facility] 02-27-2024 17:36-0400 Body temperature 97.7 [degF] MACHINE II ENGRAVER-C Monique Emmanuel Work Phone: [facility] 02-27-2024 17:36-0400 Body weight 140.38 kg MACHINE II ENGRAVER-C Monique Emmanuel Work Phone: [facility] 02-27-2024 17:36-0400 Heart rate 87 /min MACHINE II ENGRAVER-C Monique Emmanuel Work Phone: [facility] 02-27-2024 17:36-0400 Respiratory rate 18 /min MACHINE II ENGRAVER-C Monique Emmanuel Work Phone: [facility] 02-27-2024 17:36-0400 SaO2% (BldA) [Mass fraction] 97 % MACHINE II ENGRAVER-C Monique Emmanuel Work Phone: [facility] 03-22-2022 16:45-0400 Body height 154.94 cm Monique Suemond Other [facility] Other 03-22-2022 16:45-0400 Body mass index (BMI) [Ratio] 58.38 kg/m2 Moniquegisselle Dudley Other [facility] Other 03-22-2022 16:45-0400 Body temperature 97.9 [degF] Monique Suemond Other [facility] Other 03-22-2022 16:45-0400 Body weight 140.16 kg Monique Suemond Other [facility] Other 03-22-2022 16:45-0400 Diastolic blood pressure 93 mm[Hg] Monique Dudley Other [facility] Other 03-22-2022 16:45-0400 Respiratory rate 20 /min Monique Dudley Other [facility] Other 03-22-2022 16:45-0400 SaO2% (BldA) [Mass fraction] 98 % Monique Dudley Other [facility] Other 03-22-2022 16:45-0400 Systolic blood pressure 154 mm[Hg] Monique Dudley Other [facility] Other Encounters Encounter Date Encounter Type Care Provider Facility Start: 01-09-2025 End: 01-09-2025 ambulatory SEAN MATA Facility:[facility] Start: 01-09-2025 End: 01-09-2025 Patient encounter procedure Sean LEDESMAM Work Phone: Orthopaedics Comment on above: S/P foot surgery, ri ght (Primary Dx); Accessory navicular bone of right foot S/P foot surgery, ri ght (Primary Dx) Start: 01-02-2025 End: 01-02-2025 Telephone encounter Sean LEDESMAM Work Phone: Orthopaedics Start: 12-31-2024 End: 01-01-2025 Telephone encounter Sean LEDESMAM Work Phone: [facility] Comment on above: Surgical Followup Start: 12-31-2024 End: 12-31-2024 ambulatory SEAN MATA Facility:[facility] Start: 12-28-2024 End: 12-28-2024 [facility] Work Phone: Pre Anesthesia Start: 12-28-2024 End: 12-28-2024 ambulatory SEAN MATA Facility:[facility] Start: 12-28-2024 End: 12-28-2024 Anesthesia consultation [facility] Work Phone: Pre Anesthesia Comment on above: Pre-op evaluation (P rimary Dx); Gastroesophageal reflux disease, 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 esophagitis present; Diabetes mellitus without complication (HCC); BMI 60.0-69.9, adult (HCC); AQUILES (obstructive sleep apnea) Start: 12-28-2024 Encounter for other preprocedural examination SEAN MATA [facility] Start: 12-28-2024 End: 12-28-2024 Preprocedural examination done [facility] 3 Work Phone: [facility] Work Phone: Start: 12-14-2024 End: 12-14-2024 Orders Only Sean LEDSEMAM Work Phone: Orthopaedics Comment on above: 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) Start: 12-12-2024 End: 12-12-2024 Telephone encounter Sean Mata DPM Work Phone: Orthopaedics Comment on above: Surgical Followup Start: 12-12-2024 End: 12-12-2024 Patient encounter procedure Jamal Reynoso RT(R) Radiology Comment on above: Pain in right foot ( Primary Dx); Accessory navicular bone of right foot Start: 12-12-2024 End: 12-12-2024 ambulatory Jamal Hoyosman RT(R) Radiology Comment on above: Radiology XR Start: 12-12-2024 End: 12-12-2024 Subsequent hospital visit by physician Saúl Martínez 1 Work Phone: Radiology Comment on above: Pain [R52] Start: 12-05-2024 End: 01-02-2025 Orders Only Sean LEDESMAM Work Phone: [facility] Comment on above: Pain (Primary Dx) Start: 11-26-2024 End: 11-26-2024 ambulatory [facility] Start: 10-24-2024 End: 10-24-2024 Postop follow up visit related to original px Pato Avelar DPM Work Phone: [facility] Comment on above: Stress fracture of r ight foot, initial encounter (Primary Dx); Type 2 diabetes mellitus without complication, 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 exterminator helper insulin use ([facility]); Accessory navicular bone of right foot Start: 10-24-2024 End: 10-24-2024 ambulatory PATO Elizabeth VALENTINO Not Available Start: 10-24-2024 End: 10-24-2024 Bamboo flowsheet Pato Elizabeth Valentino DPM Work Phone: [facility] Start: 10-24-2024 End: 10-24-2024 Bamboo flowsheet Pato Elizabeth Brown DPM Work Phone: [facility] Start: 10-04-2024 End: 10-04-2024 Postop follow up visit related to original px Pato Elizabeth Brown DPM Work Phone: [facility] Comment on above: 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); Contracture of right ankle; Stress fracture of right foot, initial encounter Start: 10-04-2024 End: 10-04-2024 ambulatory PATO AVELAR Not Available Start: 10-04-2024 End: 10-04-2024 Bamboo flowsheet Pato Elizabeth Brown DPM Work Phone: [facility] Start: 10-04-2024 End: 10-04-2024 Bamboo flowsheet Pato Elizabeth Brown DPM Work Phone: [facility] Start: 09-20-2024 End: 09-20-2024 Postop follow up visit related to original px Pato Elizabeth Brown DPM Work Phone: [facility] Comment on above: 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); Contracture of right ankle Start: 09-20-2024 End: 09-20-2024 ambulatory PATO Elizabeth VALENTINO Not Available Start: 09-20-2024 End: 09-20-2024 Bamboo flowsheet Pato Elizabeth Brown DPM Work Phone: [facility] Start: 09-20-2024 End: 09-20-2024 Bamboo flowsheet Pato Avelar DPM Work Phone: [facility] Start: 09-13-2024 End: 09-13-2024 Postop follow up visit related to original px Paot Avelar DPM Work Phone: [facility] Comment on above: 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); Contracture of right ankle; Type 2 diabetes mellitus without complication, 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 exterminator helper insulin use ([facility]) Start: 09-13-2024 End: 09-13-2024 ambulatory PATO AVELAR Not Available Start: 09-07-2024 End: 09-07-2024 Telephone encounter Pato Avelar DPM Work Phone: [facility] Start: 09-05-2024 End: 09-05-2024 Lab Drop off Pato Avelar [facility] Start: 09-05-2024 End: 09-05-2024 ambulatory DPM Pato Avelar Facility:[facility] Start: 08-30-2024 End: 08-30-2024 Office outpatient visit 25 minutes Pato Avelar DPM Work Phone: [facility] Comment on above: 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); Type 2 diabetes mellitus without complication, 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 exterminator helper insulin use ([facility]); Heel spur, left; Plantar fasciitis; Contracture of left ankle; Contracture of right ankle Start: 08-30-2024 End: 08-30-2024 ambulatory PATO AVELAR Not Available Start: 08-30-2024 End: 08-30-2024 Bamboo flowsheet Pato Avelar DPM Work Phone: [facility] Start: 08-30-2024 End: 08-30-2024 Bamboo flowsheet Pato Avelar DPM Work Phone: [facility] Start: 08-02-2024 End: 08-02-2024 Office outpatient visit 15 minutes Pato Avelar DPM Work Phone: [facility] Comment on above: 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); Posterior tibial tendonitis of right leg; Type 2 diabetes mellitus without complication, 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 jail insulin use (CMS/HCC) Start: 08-02-2024 End: 08-02-2024 ambulatory PATO AVELAR Not Available Start: 08-02-2024 End: 08-02-2024 Bamboo flowsheet Ptao Avelar DPM Work Phone: [facility] Start: 08-02-2024 End: 08-02-2024 Bamboo flowsheet Pato Avelar DPM Work Phone: [facility] Start: 07-24-2024 End: 07-24-2024 Office outpatient new 45 minutes Jaime Caamrgo DO Work Phone: [facility] Comment on above: Arthralgia of left t emporomandibular joint (Primary Dx); Left ear pain; Chronic rhinitis; Fullness in ear, left Start: 07-24-2024 End: 07-24-2024 ambulatory JAIME CAMARGO Not Available Start: 07-24-2024 End: 07-24-2024 Bamboo flowsheet Jaime Camargo DO Work Phone: [facility] GISSELLE [facility] Start: 07-24-2024 End: 07-24-2024 Bamboo flowsheet Jaime Camargo DO Work Phone: [facility] Start: 07-19-2024 End: 07-19-2024 Office outpatient visit 15 minutes Pato Avelar DPM Work Phone: [facility] Comment on above: Posterior tibial ten donitis of right leg (Primary Dx); Accessory navicular bone of left foot; Type 2 diabetes mellitus without complication, 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 exterminator helper insulin use ([facility]); Accessory navicular bone of right foot Start: 07-19-2024 End: 07-19-2024 ambulatory PATO AVELAR Not Available Start: 07-19-2024 End: 07-19-2024 Bamboo flowsheet Pato Avelar DPM Work Phone: [facility] Start: 07-19-2024 End: 07-19-2024 Bamboo flowsheet Pato Avelar DPM Work Phone: [facility] Start: 07-19-2024 End: 08-02-2024 Telephone encounter Pato Avelar DPM Work Phone: [facility] Comment on above: [facility] Orth[facility] Start: 06-28-2024 End: 06-28-2024 ambulatory PATO AVELAR Not Available Start: 06-07-2024 End: 06-07-2024 ambulatory PATO AVELAR Not Available Start: 05-24-2024 End: 05-24-2024 ambulatory PATO AVELAR Not Available Start: 05-16-2024 End: 05-16-2024 Admission to same day surgery center MACHINE II ENGRAVER-C Monique Emmanuel Work Phone: [facility] [place] Start: 05-16-2024 End: 05-16-2024 ambulatory MACHINE II ENGRAVER-C Monique Emmanuel Work Phone: [facility] Work Phone: Start: 05-03-2024 End: 05-03-2024 ambulatory PATO AVELAR Not Available Start: 04-25-2024 ambulatory Pato Avelar Facili ty:[facility] Start: 04-25-2024 End: 04-25-2024 ambulatory DPM Pato Avelar Facility:[facility] Start: 04-25-2024 End: 04-25-2024 Patient encounter procedure Pato Avelar [facility] Start: 04-16-2024 End: 05-10-2024 Pre-admission assessment Pato Avelar [facility] Start: 04-12-2024 End: 04-12-2024 ambulatory PATO AVELAR Not Available Start: 03-29-2024 End: 03-29-2024 ambulatory PATO AVELAR Not Available Start: 02-27-2024 End: 02-27-2024 ambulatory MACHINE II ENGRAVER-C Monique Emmanuel Work Phone: [facility] Work Phone: Start: 02-27-2024 End: 02-27-2024 Patient encounter procedure MACHINE II ENGRAVER-C Monique Emmanuel Work Phone: [facility] Physician [facility] Work Phone: Start: 04-27-2023 ambulatory MONIQUE EMMANUEL Facility: [facility] Start: 01-05-2023 End: 01-05-2023 ambulatory MONIQUE EMMANUEL Facility:[facility] Start: 11-28-2022 End: 11-29-2022 ambulatory MONIQUE EMMANUEL Facility:[facility] Start: 11-15-2022 End: 11-16-2022 ambulatory MONIQUEGISSELLE EMMANUEL Facility:[facility] Start: 10-25-2022 End: 11-27-2022 ambulatory MONIQUEGISSELLE EMMANUEL Facility:[facility] Start: 08-25-2022 End: 08-26-2022 ambulatory MONIQUE LIEN Facility:[facility] Start: 08-19-2022 Encounter for genera l adult medical examination without abnormal findings MONIQUE EMMANUEL [facility] Start: 08-18-2022 End: 08-19-2022 ambulatory MONIQUE EMMANUEL Facility:[facility] Start: 08-18-2022 End: 08-19-2022 Encounter for general adult medical examination without abnormal findings MONIQUE EMMANUEL Facility:[facility] Start: 06-01-2022 End: 06-01-[address] WESTLEY JHA Facility:[facility] Start: 03-22-2022 End: 03-22-2022 ambulatory Monique Dudley Other [facility] Other Start: 03-22-2022 Office outpatient vi sit 15 minutes Monique Dudley [facility] Procedures Date Procedure Procedure Detail Performing Clinician Start: 12-12-2024 Radex foot complete minimum 3 views Sean Mata DPM Work Phone: Start: 05-16-2024 Debridement MACHINE II ENGRAVER-C Shruti weber Lien Work Phone: Start: 05-16-2024 X-ray of left foot MACHINE II ENGRAVER-C Monique Whitleymer Work Phone: Start: 02-27-2024 Plain X-ray of right shoulder MACHINE II ENGRAVER-C Monique Lien Work Phone: Cholecystectomy Pato Americo pulliam Plan of Treatment Date Care Activity Detail Author Start: 07-06-2034 Urine microalbumin profile DTaP,Tdap,Td Vaccine (7 - Td or Tdap) [facility] Start: 01-23-2025 End: 01-23-2025 Patient encounter procedure Orthopaedics Comment on above: Post op right foot, SX 12/31/24 Right Foot Start: 01-09-2025 End: 01-09-2025 Patient encounter procedure 01/09/2025 10:15 AM EST Office Visit Orthopaedics [address] [place] [address] Sean Mata, DPM [address] [place] [address] Post op right foot, SX 12/31/24 Orthopaedics Comment on above: Post op right foot, SX 12/31/24 Start: 12-31-2024 End: 12-31-2024 Admission to same day surgery center 12/31/2024 1:30 PM EST - 12/31/2024 3:30 PM EST Surgery Ambulatory Surgery [address] [place] [address] Sean Mata, DPM [address] [place] [address] RECONSTRUCTION POSTERIOR TIBIAL TENDON W/EXCISION OF ACCESSORY TARSAL NAVICULAR BONE Ambulatory Surgery Comment on above: RECONSTRUCTION POSTE RIOR TIBIAL TENDON W/EXCISION OF ACCESSORY TARSAL NAVICULAR BONE Start: 12-31-2024 End: 12-31-2024 Rcnstj pst tibl tdn w/exc accessory tarsl navclr RECONSTRUCTION POSTERIOR TIBIAL TENDON W/EXCISION OF ACCESSORY TARSAL NAVICULAR BONE Accessory navicular bone of right foot 12/31/2024 1:30 PM EST YEISON HECTOR LORJANEY Start: 12-31-2024 Subsequent hospital visit by physician 12/31/2024 1:30 PM EST Hospital Encounter Ambulatory Surgery [address] [place] [address] Sean Mata, DPM [address] [place] [address] 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] Ambulatory Surgery Comment on above: 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] Start: 12-31-2024 End: 12-31-2024 Admission to same day surgery center 12/31/2024 7:30 AM EST - 12/31/2024 9:25 AM EST Surgery Ambulatory Surgery [address] [place] [address] Sean Mata, DPM [address] [place] [address] RECONSTRUCTION POSTERIOR TIBIAL TENDON W/EXCISION OF ACCESSORY TARSAL NAVICULAR BONE Ambulatory Surgery Comment on above: RECONSTRUCTION POSTE RIOR TIBIAL TENDON W/EXCISION OF ACCESSORY TARSAL NAVICULAR BONE Start: 12-31-2024 End: 12-31-2024 Anesthesia consultation 12/31/2024 7:30 AM EST Anesthesia Event Ambulatory Surgery [address] [place] [address] [place] [address] [place] [address] Ambulatory Surgery Start: 12-31-2024 End: 12-31-2024 Rcnstj pst tibl tdn w/exc accessory tarsl navclr RECONSTRUCTION POSTERIOR TIBIAL TENDON W/EXCISION OF ACCESSORY TARSAL NAVICULAR BONE Accessory navicular bone of right foot 12/31/2024 7:30 AM EST YEISON YOUNG LORJANEY Start: 12-31-2024 Subsequent hospital visit by physician 12/31/2024 7:30 AM EST Hospital Encounter Ambulatory Surgery [address] [place] [address] Sean Mata, CALLIEM [address] [place] [address] 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] Ambulatory Surgery Comment on above: 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] Start: 12-28-2024 End: 12-28-2024 Anesthesia consultation 12/28/2024 10:10 AM EST PAT Pre [facility] [address] [facility] [place] [address] PACC right foot, SX 12/31/24 Pre Anesthesia Comment on above: PACC right foot, SX 12/31/24 Start: 11-01-2024 End: 11-01-2024 Patient encounter procedure 11/01/2024 4:20 PM EST Office Visit [facility] [address] [id number] Pato Avelar DPM [address] [address] [facility] Start: 10-24-2024 End: 10-24-2024 Patient encounter procedure 10/24/2024 2:40 PM EST Office Visit [facility] [address] [place] [id number] Pato Avelar DPM [address] [address] Stress fracture of right foot, initial encounter (Primary Dx); Type 2 diabetes mellitus without complication, 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 exterminator helper insulin use (CMS/HCC) [facility] Comment on above: Stress fracture of r ight foot, initial encounter (Primary Dx); Type 2 diabetes mellitus without complication, 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 jail insulin use (CMS/HCC) Start: 10-11-2024 Hepatitis B Vaccine (3 of 3 - 3-dose series) Hepatitis B Vaccine (3 of 3 - 3-dose series) [facility] Start: 10-04-2024 End: 10-04-2024 Patient encounter procedure 10/04/2024 2:40 PM EST Office Visit [facility] [address] [place] [address] Pato Avelar DPM [address] [address] 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); Contracture of right ankle [facility] Comment on above: 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); Contracture of right ankle Start: 09-20-2024 End: 09-20-2024 Patient encounter procedure 09/20/2024 2:40 PM EDT Office Visit [facility] [address] [facility] [address] [place] [address] Pato Avelar DPM [address] [address] 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); Contracture of right ankle [facility] Comment on above: 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); Contracture of right ankle Start: 09-13-2024 End: 09-13-2024 Patient encounter procedure 09/13/2024 3:20 PM EDT Office Visit [facility] [address] [facility] [address] [place] [address] Pato Avelar DPM [address] [address] [facility] Start: 09-12-2024 End: 09-12-2024 Patient encounter procedure 09/12/2024 3:00 PM EDT Office Visit [facility] [address] [place] [address] Pato Avelar DPM [address] [address] [facility] Start: 09-05-2024 End: 09-05-2024 Patient encounter procedure 09/05/2024 7:30 AM EDT Procedure Visit [facility] Pato Avelar DPM [address] [address] [facility] Start: 08-30-2024 End: 08-30-2024 Patient encounter procedure 08/30/2024 2:50 PM EDT Office Visit [facility] [address] [facility] [address] [place] [phone] Pato Avelar DPM [address] [address] 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); Type 2 diabetes mellitus without complication, 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 exterminator helper insulin use ([facility]) [facility] Comment on above: 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); Type 2 diabetes mellitus without complication, 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 jail insulin use ([facility]) Start: 08-02-2024 End: 08-02-2024 Patient encounter procedure [facility] Comment on above: 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); Posterior tibial tendonitis of right leg; Type 2 diabetes mellitus without complication, 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 exterminator helper insulin use ([facility]) Start: 07-29-2024 Covid-19 Vaccine ( season) Covid-19 Vaccine ( season) [facility] Start: 07-29-2024 Influenza vaccination Influenza Vacc ine (#1) [facility] Start: 07-24-2024 End: 07-24-2024 Patient encounter procedure KELIY MONTES Comment on above: Arrived Start: 07-19-2024 End: 07-19-2024 Patient encounter procedure 07/19/2024 4:00 PM EDT Office Visit [facility] [address] [place] [address] Pato Avelar DPM [address] [address] Accessory navicular bone of left foot (Primary Dx); Type 2 diabetes mellitus without complication, 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 exterminator helper insulin use (CMS/HCC) [facility] Comment on above: Accessory navicular bone of left foot (Primary Dx); Type 2 diabetes mellitus without complication, 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 jail insulin use ([facility]/HCC) Start: 05-16-2024 [facility] Start: 05-16-2024 [facility] Start: 2018 Screening for malign ant neoplasm of cervix [facility] Start: 2009 Screening for malign ant neoplasm of cervix [facility] Start: 2007 Pneumococcal vaccination Pneum ococcal Vaccine (1 of 2 - PCV) [facility] Start: 2007 Urine screening for protein Diabetes: Urine Protein Screening [facility] Start: 2006 Annual PCP Team [employer] coreen Disease Visit Annual PCP Team Chronic Disease Visit [facility] Start: 2006 Anxiety Screening Anxiety Screening [facility] Start: 2006 Depression Screening Depression Scre ening [facility] Start: 2006 Hepatitis B surface antibody level LDL Cholesterol [facility] Start: 2006 Hepatitis C screening Hepatitis C Sc christian [facility] Start: 2006 HIV screening HIV Screening [facility] Start: 1999 Urine microalbumin profile DTaP,Tdap,Td Vaccine (6 - Tdap) [facility] Start: 1998 Diabetic foot examination Diabetic Foot Exam [facility] Start: 1998 Glaucoma screening [facility] Start: 1998 Hepatitis B screening Urine Albumin:Creatinine Ratio [facility] Start: 1993 Hemoglobin A1c measurement HbA1C [facility] Start: 1988 Hemoglobin A1c measurement Diabetes: Hemoglobin A1C [facility] MR Foot - right WO contrast MR foot right wo IV contrast Imaging Routine Stress fracture of right foot, initial encounter Ordered: 10/04/2024 [facility] Work Phone: Comment on above: Ordered: 10/04/2024 Patient Education Know your Meds [facility] Work Phone: XR Foot - right 3 Views XR foot 3+ views right Imaging Routine Accessory navicular bone of right foot 09/13/2024 3:04 PM EDT [facility] Work Phone: XR Foot - right 3 Views XR foot 3+ views right Imaging Routine Accessory navicular bone of right foot 08/02/2024 3:28 PM EDT [facility] Work Phone: End: 02-02-2026 XR Foot - right AP and Lateral and oblique XR FOOT GENERAL 3V AP/LAT/OBL RIGHT Radiology Routine S/P foot surgery, right 1 Occurrences starting 01/03/2025 until 02/02/2026 [facility] Work Phone: Comment on above: 1 Occurrences starti ng 01/03/2025 until 02/02/2026 Immunizations Immunization Date Immunization Notes Care Provider Tony teague 07-19-2002 hepatitis B vaccine, pediatric or pediatric/adolescent dosage Jaime Camargo DO Work Phone: [facility] 07-19-2002 measles, mumps and rubella virus vaccine Jaime Camargo DO Work Phone: [facility] 04-16-1993 diphtheria, tetanus toxoids and pertussis vaccine Jaime Camargo DO Work Phone: [facility] 04-16-1993 trivalent poliovirus vaccine, live, oral Jaime Camargo DO Work Phone: [facility] 05-18-1990 haemophilus influenz ae type b vaccine, conjugate unspecified formulation Jaime Camargo DO Work Phone: [facility] 10-13-1989 diphtheria, tetanus toxoids and pertussis vaccine Jaime Camargo DO Work Phone: [facility] 10-13-1989 measles, mumps and rubella virus vaccine Jaime Camargo DO Work Phone: [facility] 10-13-1989 trivalent poliovirus vaccine, live, oral Jaime Camargo DO Work Phone: [facility] 05-11-1989 diphtheria, tetanus toxoids and pertussis vaccine Jaime Camargo DO Work Phone: [facility] 03-17-1989 diphtheria, tetanus toxoids and pertussis vaccine Jaime Camargo DO Work Phone: [facility] 03-17-1989 trivalent poliovirus vaccine, live, oral Jaime Camargo DO Work Phone: [facility] 1988 diphtheria, tetanus toxoids and pertussis vaccine Jaime Camargo DO Work Phone: [facility] 1988 trivalent poliovirus vaccine, live, oral Jaime Camargo DO Work Phone: [facility] Payers Date Payer Category Payer Unknown [id number] 2024 Self-pay [id number] 2020 [employer] Blue [employer] [id number] 2020 Unknown [id number] 1988 Unknown [id number] 2.16.84 0.1.291281.3.579.2.593 1988 Unknown [id number] 2.16.84 0.1.580113.3.579.2.593 1988 Unknown [id number] 2.16.84 0.1.884385.3.579.2.593 1988 Unknown [id number] 2.16.84 0.1.350536.3.579.2.593 1988 Unknown [id number] 2.16.84 0.1.129185.3.579.2.593 1988 Unknown [id number] 2.16.84 0.1.695812.3.579.2.593 1988 Unknown [id number] 2.16.84 0.1.587943.3.579.2.593 1988 Unknown [id number] 2.16.84 0.1.707760.3.579.2.593 1988 Unknown [id number] 2.16.8 40.1.662755.3.579.2.727 1988 Unknown [id number] 2.16.84 0.1.702829.3.579.2.1258 1988 Unknown [id number] 2.16.84 0.1.361494.3.579.2.1258 1988 Unknown [id number] 2.16.84 0.1.449099.3.579.2.1258 1988 Unknown [id number] 2.16.84 0.1.759945.3.579.2.1258 1988 Unknown [id number] 2.16.84 0.1.642394.3.579.2.1258 1988 Unknown [id number] 2.16.84 0.1.170626.3.579.2.1258 1988 Unknown [id number] 2.16.8 40.1.396073.3.579.2.727 1988 Unknown [id number] 2.16.84 0.1.556632.3.579.2.9 1988 Unknown [id number] 2.16.84 0.1.604788.3.579.2.1258 1988 Unknown [id number] 2.16.84 0.1.201745.3.579.2.1258 1988 Unknown [id number] 2.16.84 0.1.201031.3.579.2.1258 1988 Unknown [id number] 2.16.84 0.1.138144.3.579.2.1258 1988 Unknown [id number] 2.16.84 0.1.568370.3.579.2.1258 1988 Unknown [id number] 2.16.84 0.1.597461.3.579.2.1259 1988 Unknown [id number] 2.16.84 0.1.944520.3.579.2.1259 1988 Unknown [id number] 2.16.84 0.1.628779.3.579.2.1259 1988 Unknown [id number] 2.16.84 0.1.477333.3.579.2.1259 1961 [facility] [id number] 2.16.840.1.312538.19 Unknown [id number] 2.16.8 40.1.202596.3.579.2.531 Unknown [id number] 2.16.8 40.1.666142.3.579.2.531 Social History Date Type Detail Facility Unknown if ever smoked [facility] Other Start: 08-02-2024 End: 12-12-2024 Sex Assigned At [facility] Start: 10-25-2018 End: 12-28-2024 Tobacco smoking status ARIS Never smoked tobacco (finding) [facility] Start: 1988 Sex Assigned At Female [facility] Tobacco smoking status No Smoking Status Entered [facility] Start: 03-29-2024 End: 12-28-2024 Tobacco use and exposure Smokeless tobacco non-user [facility] Start: 08-02-2024 End: 12-31-2024 Alcoholic beverage intake Lifetime non-drinker (finding) [facility] Start: 08-02-2024 End: 12-12-2024 History of Social function [facility] Start: 1988 Sex assigned at Not on file [facility] Tobacco smoking status [facility] Tobacco smoking consumption unknown [facility] Adult Depression Screening Assessment 2 [facility] NEGATED: Highlighted rowStart: NINF History of tobacco use Passive smoker [facility] Medical Equipment Procedure Code Equipment Code Equipment Origin al Text Equipment Identifier Dates Sunflower Suturetak Fiberwire 1 .5 [place] 2 Joselin Biocomposite 26.2mm Suture - [id number] Start: 12-31-2024 Goals Date Patient Goal Desired Activity /State Functional Status Date Assessment Result Facility 04-25-2024 Functional Status No [facility] Clinical Notes 03-22-2022 to 01-09-2025 Shaylee Concepcion MA - 01/09/2025 11:18 AM Sean Plascencia DPM - 01/09/2025 10:52 AM ESTTelephone Encounter - Sean Mata DPM - 01/02/2025 12:36 PM ESTPatient Instructions Note Date & Type Note Facility 01-09-2025 Note HNO ID: [id number] Author: SHAYLEE CONCEPCION MA Service: ? Author Type: Patient Safety Attendant Type: Progress Notes Filed: 01/09/2025 11:22 Note Text: This patient is here today for splint removal, exam by Dr. Mata and cast application. The patient was placed in a short leg nonweightbearing cast. The surgical site was covered in betadine, 4x4's and kerlix. This was applied to right leg. Patient was instructed in care and usage and verbalizes understanding. Patient will follow up as scheduled or as needed. [facility] 01-09-2025 History of Present illness Narrative This patient is here today for splint removal, exam by Dr. Mata and cast application. The patient was placed in a short leg nonweightbearing cast. The surgical site was covered in betadine, 4x4's and kerlix. This was applied to right leg. Patient was instructed in care and usage and verbalizes understanding. Patient will follow up as scheduled or as needed. documented in this encounter [facility] 01-09-2025 Note HNO ID: [id number] Author: SEAN MATA DPM Service: ? Author Type: Physician Type: Progress Notes Filed: 01/09/2025 10:55 Note Text: PRIMARY SERVICE: [facility] SUBJECTIVE: Patient is seen today for her first scheduled postop visit with her family present 9 days status post a revision of modified Kidner procedure of her right foot without complaints. Medical: PAST MEDICAL HISTORY Diagnosis Date Diabetes mellitus (HCC) GERD (gastroesophageal reflux disease) Obesity AQUILES (obstructive sleep apnea) PONV (postoperative nausea and vomiting) ALLERGIES: ALLERGIES Allergen Reactions Sulfa (Sulfonamide * Hives, Rash MEDICATIONS: Current Outpatient Medications Medication Sig keTORolac (TORADOL) 10 mg tablet Take 1 tablet by mouth every 6 hours as needed. with food. aspirin 325 mg tablet Take 1 tablet by mouth once daily. promethazine (PHENERGAN) 12.5 mg tablet Take 1 tablet by mouth every 8 hours as needed for up to 10 days. 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 DEXCOM G7 SENSOR eduin DEXCOM G6 TRANSMITTER eduin as directed. cholecalciferol (VITAMIN D3) 5,000 unit tab Take 5,000 Units by mouth once daily. escitalopram oxalate (LEXAPRO) 20 mg tablet TAKE 1/2 TABLET BY MOUTH ONCE A DAY FOR 1 WEEK THEN 1 TABLET ONCE A DAY glipiZIDE (GLUCOTROL) 5 mg tablet metFORMIN (GLUCOPHAGE) 500 mg tablet TAKE 1 TABLET BY MOUTH TWICE A DAY WITH MEAL omeprazole (PRILOSEC) 20 mg capsule TAKE 1 CAPSULE BY MOUTH EVERY DAY for 90 oxyCODONE-acetaminophen (PERCOCET) 5-325 mg tablet Take 1 tablet by mouth every 6 hours as needed. traZODone (DESYREL) 100 mg tablet TAKE 1 TABLET BY MOUTH EVERYDAY AT BEDTIME NEEDED No current facility-administered medications for this visit. Surgical: PAST SURGICAL HISTORY Procedure Laterality Date PAST SURGICAL HISTORY OF Bilateral foot x2 PAST SURGICAL HISTORY OF Right shoulder REMOVAL GALLBLADDER PHYSICAL EXAM: The patient is alert and oriented x 3 and in no apparent acute distress. Patient presents with a clean dry intact posterior splint and dressings on the right lower extremity nonweightbearing. Upon removal: NEUROVASCULAR: Patient has only mild edema and erythema along the incision as expected DERMATOLOGIC: The incision is well coapted with intact sutures with no appreciable signs of active drainage bleeding purulence or cellulitis ORTHO/MUSCULOSKELETAL: With loading the fifth ray the foot is nice and rectus with minimal residual deformity ASSESSMENT: Satisfactory postop progress right foot status post 9 days appropriate to continue present TREATMENT TODAY: First postop visit right foot Discussed results of clinical examination with the patient and family in detail upon removal of the posterior splint and dressings. Pain incision with Betadine. Reapplied a bulky dry sterile dressing sterile 4 x 4's Kerlix followed by well-padded BK fiberglass nonweightbearing cast dorsiflexed to resistance and inverted. I will see the patient back in approximately 2 weeks for reevaluation with final cast. Continue nonweightbearing until further advised SIGNATURE: Sean Mata DPM DATE of SERVICE: 01/09/2025 TIME of SERVICE: 10:52 AM [facility] 01-09-2025 History of Present illness Narrative Images from the original note were not included. PRIMARY SERVICE: [facility] SUBJECTIVE: Patient is seen today for her first scheduled postop visit with her family present 9 days status post a revision of modified Kidner procedure of her right foot without complaints. Medical: PAST MEDICAL HISTORY Diagnosis Date Diabetes mellitus (HCC) GERD (gastroesophageal reflux disease) Obesity AQUILES (obstructive sleep apnea) PONV (postoperative nausea and vomiting) ALLERGIES: ALLERGIES Allergen Reactions Sulfa (Sulfonamide * Hives, Rash MEDICATIONS: Current Outpatient Medications Medication Sig keTORolac (TORADOL) 10 mg tablet Take 1 tablet by mouth every 6 hours as needed. with food. aspirin 325 mg tablet Take 1 tablet by mouth once daily. promethazine (PHENERGAN) 12.5 mg tablet Take 1 tablet by mouth every 8 hours as needed for up to 10 days. 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 DEXCOM G7 SENSOR eduin DEXCOM G6 TRANSMITTER eduin as directed. cholecalciferol (VITAMIN D3) 5,000 unit tab Take 5,000 Units by mouth once daily. escitalopram oxalate (LEXAPRO) 20 mg tablet TAKE 1/2 TABLET BY MOUTH ONCE A DAY FOR 1 WEEK THEN 1 TABLET ONCE A DAY glipiZIDE (GLUCOTROL) 5 mg tablet metFORMIN (GLUCOPHAGE) 500 mg tablet TAKE 1 TABLET BY MOUTH TWICE A DAY WITH MEAL omeprazole (PRILOSEC) 20 mg capsule TAKE 1 CAPSULE BY MOUTH EVERY DAY for 90 oxyCODONE-acetaminophen (PERCOCET) 5-325 mg tablet Take 1 tablet by mouth every 6 hours as needed. traZODone (DESYREL) 100 mg tablet TAKE 1 TABLET BY MOUTH EVERYDAY AT BEDTIME NEEDED No current facility-administered medications for this visit. Surgical: PAST SURGICAL HISTORY Procedure Laterality Date PAST SURGICAL HISTORY OF Bilateral foot x2 PAST SURGICAL HISTORY OF Right shoulder REMOVAL GALLBLADDER PHYSICAL EXAM: The patient is alert and oriented x 3 and in no apparent acute distress. Patient presents with a clean dry intact posterior splint and dressings on the right lower extremity nonweightbearing. Upon removal: NEUROVASCULAR: Patient has only mild edema and erythema along the incision as expected DERMATOLOGIC: The incision is well coapted with intact sutures with no appreciable signs of active drainage bleeding purulence or cellulitis ORTHO/MUSCULOSKELETAL: With loading the fifth ray the foot is nice and rectus with minimal residual deformity ASSESSMENT: Satisfactory postop progress right foot status post 9 days appropriate to continue present TREATMENT TODAY: First postop visit right foot Discussed results of clinical examination with the patient and family in detail upon removal of the posterior splint and dressings. Pain incision with Betadine. Reapplied a bulky dry sterile dressing sterile 4 x 4's Kerlix followed by well-padded BK fiberglass nonweightbearing cast dorsiflexed to resistance and inverted. I will see the patient back in approximately 2 weeks for reevaluation with final cast. Continue nonweightbearing until further advised SIGNATURE: Sean Mata DPM DATE of SERVICE: 01/09/2025 TIME of SERVICE: 10:52 AM documented in this encounter [facility] 01-02-2025 Telephone encounter Note Called patient at [phone] to return call regarding pain management. I spoke with the patient. Advised I sent a prescription over for her electronically for Toradol 10 mg tablets take 2 right away the 1 every 6 hours with food until gone in addition to the Percocet and the Phenergan. Recommend 2 Percocet every 4-6 hours due to her BMI. Sean Mata DPM [facility] 01-02-2025 Miscellaneous Notes Called patient at [phone] to return call regarding pain management. I spoke with the patient. Advised I sent a prescription over for her electronically for Toradol 10 mg tablets take 2 right away the 1 every 6 hours with food until gone in addition to the Percocet and the Phenergan. Recommend 2 Percocet every 4-6 hours due to her BMI. Sean Mata DPM documented in this encounter [facility] 12-31-2024 Miscellaneous Notes Called patient at her Lonnie's cell number at [phone] to check on postop progress. Received voicemail. Left message that I called. Called patient back at 8:41 PM to same number. Spoke with who said she was doing well without any significant pain or problems at this time. Advised to call if any questions or problems between now and her first scheduled postop visit on January 09, 2025. Sean Mata DPM Message has been sent directly to Dr Mata's phone. Noel is calling Sean Mata DPM today because the pharmacy told her they did not have the strength of the percocet in stock that was sent I did speak with the surgery center as well and they were going to put a message to provider Please advise Patient has been identified by name and birthdate. Duration of symptoms: N/A Person calling: self Call patient at: at home [phone] (home) [phone] (cell) Was an appointment scheduled: No Closing statement: Results or non-symptom based questions: Thank you for calling [facility], your call will be returned within the next business day. Marva Kang Pss documented in this encounter [facility] 12-31-2024 Telephone encounter Note Called patient at her Lonnie's cell number at [phone] to check on postop progress. Received voicemail. Left message that I called. Called patient back at 8:41 PM to same number. Spoke with who said she was doing well without any significant pain or problems at this time. Advised to call if any questions or problems between now and her first scheduled postop visit on January 09, 2025. Sean Mata DPM [facility] Work Phone: 12-31-2024 Telephone encounter Note Message has been sent directly to Dr Mata's phone. [facility] 12-31-2024 Telephone encounter Note Noel is calling Sean Mata DPM today because the pharmacy told her they did not have the strength of the percocet in stock that was sent I did speak with the surgery center as well and they were going to put a message to provider Please advise Patient has been identified by name and birthdate. Duration of symptoms: N/A Person calling: self Call patient at: at home [phone] (home) [phone] (cell) Was an appointment scheduled: No Closing statement: Results or non-symptom based questions: Thank you for calling [facility], your call will be returned within the next business day. Marva Kang Pss [facility] 12-31-2024 Note HNO ID: [id number] Author: ESTELLA GIBBONS AA Service: Anesthesiology Author Type: Steam Shovelman Type: Anesthesia Procedure Notes Filed: 12/31/2024 09:57 Note Text: ANESTHESIOLOGY PROCEDURE NOTE PIV General Information Procedure Start Time/Medication Administration: 12/31/2024 8:00 AM Procedure End Time: 12/31/2024 8:01 AM Patient Location: OR Staffing CAA: Estella Gibbons AA Performed by: FELIX Preparation Sterility Preparation: hand hygiene performed prior to procedure, surgical cap used, mask used, skin prep agent completely dried prior to procedure Site Prep: Chloraprep Procedure Details Indication: need for IV access Needle Size/Type: 20 gauge angiocath Orientation: Right Location: Hand Imaging Guidance Used: No SIGNATURE: CLAUDE Paula PATIENT NAME: Noel Paul DATE: December 31, 2024 TIME: 9:57 AM CSN: [id number] [facility] 12-31-2024 Note HNO ID: [id number] Author: ESTELLA GIBBONS AA Service: Anesthesiology Author Type: Steam Shovelman Type: Anesthesia Procedure Notes Filed: 12/31/2024 08:20 Note Text: ANESTHESIOLOGY PROCEDURE NOTE Airway General Information Procedure Start Time/Medication Administration: 12/31/2024 7:46 AM Procedure End Time: 12/31/2024 7:47 AM Patient location during procedure: OR Patient identity confirmed: arm band Staffing CAA: Estella Gibbons AA Performed by: FELIX Indications and Patient Condition Indications for airway management: anesthesia Preoxygenated: yes anesthesia circuit Method: sleep Difficult Mask: No Airway Accessory: oral airway (large red) Final Airway Details Final airway type: endotracheal airway Final Endotracheal Airway: ETT Cuffed: yes Successful intubation technique: video laryngoscopy Devices used: Newsome Endotracheal tube insertion site: oral Blade: Jeanette Blade size: #3 ETT size (mm): 7.0 Measured from: teeth Measurement (cm): 21 Placement verified by: chest auscultation and capnometry Cormack-Lehane Classification: grade I - full view of glottis Number of attempts at approach: 1 Airway not difficult Comments Easy mask vent with 2 person technique and large red OA. Grade 1 view with Newsome , lots of redundant tissue. SIGNATURE: CLAUDE Paula PATIENT NAME: Noel Paul DATE: December 31, 2024 TIME: 8:18 AM CSN: [id number] [facility] 12-28-2024 History and physical note Images from the original note were not included. [facility] HISTORY AND PHYSICAL EXAMINATION SERVICE DATE: 12/28/2024 SERVICE TIME: 10:08 AM PRIMARY CARE PHYSICIAN: Monique Emmanuel CNP, PRINT WASHER REASON FOR VISIT: Noel Paul is a 34 year old female who is scheduled for Right - RECONSTRUCTION POSTERIOR TIBIAL TENDON W/EXCISION OF ACCESSORY TARSAL NAVICULAR BONE at the request of Dr. Sean Mata for consultation. My final recommendation will be communicated back to the requesting physician by way of shared medical record or letter. Assessment Acid reflux Assessment: managed with med, stable Follows up with PCP Diabetes mellitus without complication (HCC) Assessment: managed with oral med, stable Follows up with PCP BG at home 120's HgbA1c 6.6% BMI 60.0-69.9, adult (HCC) Assessment: diet and exercise encouraged BMI 62 AQUILES (obstructive sleep apnea) Assessment: does not have CPAP yet [place] Activity Status Index: METS: Walk indoors, such as around the house (1.75 METs) Do light work around the house, such as dusting or washing dishes (2.70 METs) Take care of self; that is eating, dressing, bathing, using the toilet (2.75 METs) Walk a block or two on level ground (2.75 METs) Do moderate work around the house, such as vacuuming, sweeping floors, or carrying in groceries (3.50 METs) Climb a flight of stairs or walk up a hill (5.50 METs) DASI Score: 18.95 Patient denies any chest pain or undue shortness of breath with the above physical activity. Clinical Frailty Scale: 2. Well STOP-Bang Score: STOP-Bang Score: 0 (Awaiting CPAP) [id number] Score: Age: <65 Sex: female [id number] Score: ARISCAT Score: Age: <=50 Preoperative SpO2: >=96% Preoperative anemia: Yes Duration of surgery: <2 hrs Emergency procedure: No ARISCAT Score: ANESTHESIA FINDINGS: Intubation History: No history of difficult intubation. No abnormal airway history Significant Anesthesia Considerations: patient states after nerve block for rotator cuff, required admission due to low pulse ox none Airway History: No history of difficult airway No abnormal airway history I - PHYSICAL EVALUATION AIRWAY Patient intubated: No. Tracheostomy tube not present Mallampati: III. TM distance: <3 FB. Neck ROM: full ROM without neurological symptoms. Mouth opening: adequate. Short neck: yes. Thick neck: yes Lip Bite Test: I DENTAL Dental findings: teeth intact. II - ANESTHESIA PLAN Anesthetic plan additional comments: *PACC/TCI - anesthesia choice. Beta Chiquis Monitoring Plan Post Procedure Analgesic Plan Prepared for surgery: This patient is optimally prepared for surgery Email sent to Dr Goetz and Dr Brown for chart review and guidance on proceeding at [place]. Per Dr Goetz, patient may proceed as scheduled at [place] CONSULTS: Anesthesia Consult chart review The Following Tests/Procedures Have Been Initiated: Labs not indicated per PACC protocol, EKG not indicated per PACC protocol Planned Anesthetic: Per anesthesia choice The patient has the following: ACTIVE PROBLEM LIST Acid Reflux Anxiety Diabetes Mellitus Without Complication (Hcc) Vitamin D Deficiency Arthritis of Right Acromioclavicular Joint Bmi 60.0-69.9, Adult (Hcc) Aquiles (Obstructive Sleep Apnea) Subjective CHIEF COMPLAINT: Pre-op exam HPI: This is a 34 year old female that is scheduled for the above procedure. Patient has chronic right foot pain. She states current pain is 5/10 and described as a dull, ache. Pain is relieved with rest and wearing walking boot. Pain is worse with increased activity. PAST MEDICAL HISTORY Diagnosis Date Diabetes mellitus (HCC) GERD (gastroesophageal reflux disease) Obesity AQUILES (obstructive sleep apnea) PAST SURGICAL HISTORY Procedure Laterality Date PAST SURGICAL HISTORY OF Bilateral foot x2 PAST SURGICAL HISTORY OF Right shoulder REMOVAL GALLBLADDER History reviewed. No pertinent family history. SOCIAL HISTORY: Social History Tobacco Use Smoking status: Never Smokeless tobacco: Never Substance Use Topics Alcohol use: Never Drug use: Never MEDICATIONS: Prior to Admission medications as of 12/28/24 1009 Medication Sig Last Dose Taking cholecalciferol (VITAMIN D3) 5,000 unit tab Take 5,000 Units by mouth once daily. Taking Yes escitalopram oxalate (LEXAPRO) 20 mg tablet TAKE 1/2 TABLET BY MOUTH ONCE A DAY FOR 1 WEEK THEN 1 TABLET ONCE A DAY Taking Yes glipiZIDE (GLUCOTROL) 5 mg tablet Taking Yes metFORMIN (GLUCOPHAGE) 500 mg tablet TAKE 1 TABLET BY MOUTH TWICE A DAY WITH MEAL Taking Yes omeprazole (PRILOSEC) 20 mg capsule TAKE 1 CAPSULE BY MOUTH EVERY DAY for 90 Taking Yes oxyCODONE-acetaminophen (PERCOCET) 5-325 mg tablet Take 1 tablet by mouth every 6 hours as needed. Taking Yes traZODone (DESYREL) 100 mg tablet TAKE 1 TABLET BY MOUTH EVERYDAY AT BEDTIME NEEDED Taking Yes DEXCOM G7 ELECTRONICS INSTALLER 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 DEXCOM G7 SENSOR eduin DEXCOM G6 TRANSMITTER eduin as directed. No medication comments found. CURRENT ALLERGIES: ALLERGIES Allergen Reactions Sulfa (Sulfonamide * Hives, Rash Covid Immunization Dates Overdue - Covid-19 Vaccine ( season) Never done No completion, postpone, frequency change, or communication history exists for this topic. REVIEW OF SYSTEMS: PAIN ASSESSMENT: General: No weight loss, malaise or fevers. Neuro: No history of TIA's, stroke, BILINGUAL CASE MANAGER tumor, impaired sensorium, hemiplegia, paraplegia or quadraplegia. No neurological symptoms or problems. Respiratory: No history of current cough or dyspnea, or pneumonia in the past 6 weeks. No history of respiratory/pulmonary symptoms or problems. Cardiovascular: No history of HTN requiring medication, no history of angina, CHF, MS, cardiac surgery or stents. Denies rest pain, gangrene or revascularization/amputation for PVD. No history of cardiovascular symptoms or problems. GI: Positive for GERD, Negative for Abdominal pain, Difficulty swallowing, Liver disease : No history of dysuria, frequency or incontinence,, stones or chronic kidney disease, No difficulty urinating, nocturia > 1 time per night or hematuria Endocrine: Diabetes Mellitus on oral agent Hematology: No history of bleeding or clotting disorder. Pt is not taking anti-coagulation or platelet medications. No history of hematological symptoms or problems. Oncology: No history of CA metastasis, chemo within 30 days, or radiotherapy within 90 days. Has not lost 10% of body wt in 6 months. No history of oncological symptoms or problems. Psych: Anxiety Marijuana use: No Musculoskeletal: See HPI Skin: Negative for lesions, rash and itching. Implanted Devices: No Objective PHYSICAL EXAM: VITALS: BP 130/73 Pulse 104 Temp (Src) 97.4 (Temporal) Resp 16 Ht 5' 2 (1.58m) Wt 339 lb 4.6 oz (153.9kg) SpO2 98% BMI 62.04 kg/(m^2). General: Alert and oriented, No acute distress Skin: Normal color, no rash, no lesions. HEENT: EOM, pupils equal, round and reactive. Cardiovascular: Normal S1 & S2, no rubs, murmurs or gallops. No JVD. Pulse regular. Lungs: Normal breath sounds, no wheezes or crackles., No chest deformities or chest wall tenderness. Abdomen: Soft, non-tender, no rigidity., No masses or organomegaly. Extremities: No deformity, no edema or tenderness, no joint swelling or clubbing. Neurological: Normal cognition and motor skills. Gait normal. No weakness or sensory deficit. Pulses: Carotid and radial pulses normal +2. Diagnostic tests reviewed for today's visit: Labs in care everywhere WNL for above surgery 11/26/24 Lab Value Units Date High Low HB No results within date range. HCT No results within date range. WBC No results within date range. PLT No results within date range. NA No results within date range. K No results within date range. GLUC No results within date range. BUN No results within date range. CREAT No results within date range. PTSEC No results within date range. INR No results within date range. APTT No results within date range. ALT No results within date range. AST No results within date range. TBILI No results within date range. TSH No results within date range. HgbA1c 10/15/24 [address]% CT Neck 1. There is mild induration of the fat along the lateral aspect of the right submandibular gland which was also present on prior study. There is also Mildly enlarged right level 1B lymph node in this region. This is nonspecific. There has been an interval decrease in edema throughout the right parotid gland since examination dated 11/17/2024. No discrete fluid collections to suggest abscess formation. Instructions Given to Patient: Instructions located in the after visit summary. Patient given verbal and written preop instructions and voices comprehension and compliance. SIGNATURE: Ary Rocha APRN.IRENE PATIENT NAME: Noel Paul DATE: 12/28/2024 TIME: 10:21 AM [facility] 12-28-2024 History and physical note Images from the original note were not included. [facility] HISTORY AND PHYSICAL EXAMINATION SERVICE DATE: 12/28/2024 SERVICE TIME: 10:08 AM PRIMARY CARE PHYSICIAN: Monique Emmanuel CNP, IRENE REASON FOR VISIT: Noel Paul is a 34 year old female who is scheduled for Right - RECONSTRUCTION POSTERIOR TIBIAL TENDON W/EXCISION OF ACCESSORY TARSAL NAVICULAR BONE at the request of Dr. Sean Mata for consultation. My final recommendation will be communicated back to the requesting physician by way of shared medical record or letter. Assessment Acid reflux Assessment: managed with med, stable Follows up with PCP Diabetes mellitus without complication (HCC) Assessment: managed with oral med, stable Follows up with PCP BG at home 120's HgbA1c 6.6% BMI 60.0-69.9, adult ([facility]) Assessment: diet and exercise encouraged BMI 62 AQUILES (obstructive sleep apnea) Assessment: does not have CPAP yet [place] Activity Status Index: METS: Walk indoors, such as around the house (1.75 METs) Do light work around the house, such as dusting or washing dishes (2.70 METs) Take care of self; that is eating, dressing, bathing, using the toilet (2.75 METs) Walk a block or two on level ground (2.75 METs) Do moderate work around the house, such as vacuuming, sweeping floors, or carrying in groceries (3.50 METs) Climb a flight of stairs or walk up a hill (5.50 METs) DASI Score: 18.95 Patient denies any chest pain or undue shortness of breath with the above physical activity. Clinical Frailty Scale: 2. Well STOP-Bang Score: STOP-Bang Score: 0 (Awaiting CPAP) [id number] Score: Age: <65 Sex: female [id number] Score: ARISCAT Score: Age: <=50 Preoperative SpO2: >=96% Preoperative anemia: Yes Duration of surgery: <2 hrs Emergency procedure: No ARISCAT Score: ANESTHESIA FINDINGS: Intubation History: No history of difficult intubation. No abnormal airway history Significant Anesthesia Considerations: patient states after nerve block for rotator cuff, required admission due to low pulse ox none Airway History: No history of difficult airway No abnormal airway history I - PHYSICAL EVALUATION AIRWAY Patient intubated: No. Tracheostomy tube not present Mallampati: III. TM distance: <3 FB. Neck ROM: full ROM without neurological symptoms. Mouth opening: adequate. Short neck: yes. Thick neck: yes Lip Bite Test: I DENTAL Dental findings: teeth intact. II - ANESTHESIA PLAN Anesthetic plan additional comments: *PACC/TCI - anesthesia choice. Beta Chiquis Monitoring Plan Post Procedure Analgesic Plan Prepared for surgery: This patient is optimally prepared for surgery Email sent to Dr Goetz and Dr Brown for chart review and guidance on proceeding at [place]. Per Dr Goetz, patient may proceed as scheduled at [place] CONSULTS: Anesthesia Consult chart review The Following Tests/Procedures Have Been Initiated: Labs not indicated per PACC protocol, EKG not indicated per PACC protocol Planned Anesthetic: Per anesthesia choice The patient has the following: ACTIVE PROBLEM LIST Acid Reflux Anxiety Diabetes Mellitus Without Complication (Hcc) Vitamin D Deficiency Arthritis of Right Acromioclavicular Joint Bmi 60.0-69.9, Adult (Hcc) Aquiles (Obstructive Sleep Apnea) Subjective CHIEF COMPLAINT: Pre-op exam HPI: This is a 34 year old female that is scheduled for the above procedure. Patient has chronic right foot pain. She states current pain is 5/10 and described as a dull, ache. Pain is relieved with rest and wearing walking boot. Pain is worse with increased activity. PAST MEDICAL HISTORY Diagnosis Date Diabetes mellitus (HCC) GERD (gastroesophageal reflux disease) Obesity AQUILES (obstructive sleep apnea) PAST SURGICAL HISTORY Procedure Laterality Date PAST SURGICAL HISTORY OF Bilateral foot x2 PAST SURGICAL HISTORY OF Right shoulder REMOVAL GALLBLADDER History reviewed. No pertinent family history. SOCIAL HISTORY: Social History Tobacco Use Smoking status: Never Smokeless tobacco: Never Substance Use Topics Alcohol use: Never Drug use: Never MEDICATIONS: Prior to Admission medications as of 12/28/24 1009 Medication Sig Last Dose Taking cholecalciferol (VITAMIN D3) 5,000 unit tab Take 5,000 Units by mouth once daily. Taking Yes escitalopram oxalate (LEXAPRO) 20 mg tablet TAKE 1/2 TABLET BY MOUTH ONCE A DAY FOR 1 WEEK THEN 1 TABLET ONCE A DAY Taking Yes glipiZIDE (GLUCOTROL) 5 mg tablet Taking Yes metFORMIN (GLUCOPHAGE) 500 mg tablet TAKE 1 TABLET BY MOUTH TWICE A DAY WITH MEAL Taking Yes omeprazole (PRILOSEC) 20 mg capsule TAKE 1 CAPSULE BY MOUTH EVERY DAY for 90 Taking Yes oxyCODONE-acetaminophen (PERCOCET) 5-325 mg tablet Take 1 tablet by mouth every 6 hours as needed. Taking Yes traZODone (DESYREL) 100 mg tablet TAKE 1 TABLET BY MOUTH EVERYDAY AT BEDTIME NEEDED Taking Yes DEXCOM G7 ELECTRONICS INSTALLER 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 DEXCOM G7 SENSOR eduin DEXCOM G6 TRANSMITTER eduin as directed. No medication comments found. CURRENT ALLERGIES: ALLERGIES Allergen Reactions Sulfa (Sulfonamide * Hives, Rash Covid Immunization Dates Overdue - Covid-19 Vaccine ( season) Never done No completion, postpone, frequency change, or communication history exists for this topic. REVIEW OF SYSTEMS: PAIN ASSESSMENT: General: No weight loss, malaise or fevers. Neuro: No history of TIA's, stroke, BILINGUAL CASE MANAGER tumor, impaired sensorium, hemiplegia, paraplegia or quadraplegia. No neurological symptoms or problems. Respiratory: No history of current cough or dyspnea, or pneumonia in the past 6 weeks. No history of respiratory/pulmonary symptoms or problems. Cardiovascular: No history of HTN requiring medication, no history of angina, CHF, MS, cardiac surgery or stents. Denies rest pain, gangrene or revascularization/amputation for PVD. No history of cardiovascular symptoms or problems. GI: Positive for GERD, Negative for Abdominal pain, Difficulty swallowing, Liver disease : No history of dysuria, frequency or incontinence,, stones or chronic kidney disease, No difficulty urinating, nocturia > 1 time per night or hematuria Endocrine: Diabetes Mellitus on oral agent Hematology: No history of bleeding or clotting disorder. Pt is not taking anti-coagulation or platelet medications. No history of hematological symptoms or problems. Oncology: No history of CA metastasis, chemo within 30 days, or radiotherapy within 90 days. Has not lost 10% of body wt in 6 months. No history of oncological symptoms or problems. Psych: Anxiety Marijuana use: No Musculoskeletal: See HPI Skin: Negative for lesions, rash and itching. Implanted Devices: No Objective PHYSICAL EXAM: VITALS: BP 130/73 Pulse 104 Temp (Src) 97.4 (Temporal) Resp 16 Ht 5' 2 (1.58m) Wt 339 lb 4.6 oz (153.9kg) SpO2 98% BMI 62.04 kg/(m^2). General: Alert and oriented, No acute distress Skin: Normal color, no rash, no lesions. HEENT: EOM, pupils equal, round and reactive. Cardiovascular: Normal S1 & S2, no rubs, murmurs or gallops. No JVD. Pulse regular. Lungs: Normal breath sounds, no wheezes or crackles., No chest deformities or chest wall tenderness. Abdomen: Soft, non-tender, no rigidity., No masses or organomegaly. Extremities: No deformity, no edema or tenderness, no joint swelling or clubbing. Neurological: Normal cognition and motor skills. Gait normal. No weakness or sensory deficit. Pulses: Carotid and radial pulses normal +2. Diagnostic tests reviewed for today's visit: Labs in care everywhere WNL for above surgery 11/26/24 Lab Value Units Date High Low HB No results within date range. HCT No results within date range. WBC No results within date range. PLT No results within date range. NA No results within date range. K No results within date range. GLUC No results within date range. BUN No results within date range. CREAT No results within date range. PTSEC No results within date range. INR No results within date range. APTT No results within date range. ALT No results within date range. AST No results within date range. TBILI No results within date range. TSH No results within date range. HgbA1c 10/15/[address]% CT Neck 12203/21 1. There is mild induration of the fat along the lateral aspect of the right submandibular gland which was also present on prior study. There is also Mildly enlarged right level 1B lymph node in this region. This is nonspecific. There has been an interval decrease in edema throughout the right parotid gland since examination dated 11/17/2024. No discrete fluid collections to suggest abscess formation. Instructions Given to Patient: Instructions located in the after visit summary. Patient given verbal and written preop instructions and voices comprehension and compliance. SIGNATURE: Ary Rocha APRN.CNP PATIENT NAME: Noel Paul DATE: 12/28/2024 TIME: 10:21 AM documented in this encounter [facility] 12-26-2024 Instructions Ary Rocha APRN.IRENE - 12/26/2024 7:49 AM EST Images from the original note were not included. [facility] PATIENT PREOPERATIVE INSTRUCTIONS Sean Mata,* has scheduled you for your procedure at this surgery center: [facility]: [phone] [id number] [address]. Please read below carefully for your personalized instructions. Dietary Restrictions: - No solid food after midnight. - You may have 12 ounces of clear liquids (water, clear juices such as apple juice or gatorade, carbonated beverages, clear tea, black coffee, jello) until 2 hours before scheduled arrival at facility. Pre-Surgery Med Instructions Medication Instructions cholecalciferol (VITAMIN D3) 5,000 unit tab Do not take the day of surgery escitalopram oxalate (LEXAPRO) 20 mg tablet Take the day of surgery with a small sip of water glipiZIDE (GLUCOTROL) 5 mg tablet Do not take the day of surgery metFORMIN (GLUCOPHAGE) 500 mg tablet Do not take the day of surgery omeprazole (PRILOSEC) 20 mg capsule Take the day of surgery with a small sip of water oxyCODONE-acetaminophen (PERCOCET) 5-325 mg tablet As needed traZODone (DESYREL) 100 mg tablet As needed If you start any new medications after today's visit, please contact the surgeon's office. If you are currently using a [id number] injectable or oral medication for diabetes or weight loss such as Dulaglutide (Trulicity), Exenatide (Byetta, Bydureon), Liraglutide (Victoza, Saxenda), Semaglutide (Ozempic, Wegovy, Rybelsus), or Tirzepatide (Mounjaro) the medicine should be stopped at least seven days before surgery. These medications can cause food to remain in your stomach for a long time and increase the risks from surgery and anesthesia. Not stopping these medications for the required time, may result in your surgery being rescheduled. Blood Thinning Medications: - Stop NSAIDS (Ibuprofen, Advil, Aleve, Motrin, Celebrex, Mobic, etc.) 7 days before surgery, as directed by your surgeon. - Stop herbals and dietary supplements 7 days before surgery. - You may take Tylenol (Acetaminophen) or any of your pain medications that do not contain aspirin or NSAIDS as needed. Important Reminders: - Candy, mints, and tobacco products are NOT permitted the morning of surgery. - Hearing aids, dentures and glasses may be worn the morning of surgery. - NO jewelry, body piercings, makeup, hairpins or contacts are to be worn the day of surgery. If you develop symptoms such as a fever, cold, or flu, or have other changes to your health within TWO DAYS of scheduled surgery or the morning of surgery, please contact the surgery center above. Personal Belongings: -Please have photo ID and insurance cards. -If you do not have a copy of advance directives on file with us, please bring a copy with you on the day of surgery. - Leave ALL valuables and money at home or with family members. For Outpatient Procedures: - YOU MUST HAVE A RESPONSIBLE DOUGH MACHINE OPERATOR TAKE YOU HOME. A LICENSED ESTHETICIAN OR ALARM MECHANISM ADJUSTER CANNOT BE MADE A RESPONSIBLE DOUGH MACHINE OPERATOR. - We recommend that a responsible person stays with you overnight to take care of you. - You cannot stay in a hotel alone after outpatient surgery. You will not be permitted to have your surgery, if you do not have someone to take care of you. Arrival Time for Surgery: - The Surgery Center or hospital where you are having surgery will call the afternoon before surgery (or Tuesday for Tuesday surgery) with a scheduled arrival time. - If you have not heard by 4 pm, please contact the surgery center above. Please be aware that emergency situations arise, which may delay or change your surgical time. If this happens, we will notify you as soon as possible and regret any inconvenience. If you already have an Advance Directive, please fax a copy to [phone] or email to for it to be added to your chart. If you do not have an Advance Directive, you can find the appropriate form and more information at [email or web address]. We recommend that you complete the Advance Directive form found on the website and bring it with you the day of your surgery. It can be witnessed and scanned into your chart that day. 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 [facility] 12-12-2024 Miscellaneous Notes ----- Message from Sean Mata DPM sent at 12/12/2024 10:45 AM EST ----- Regarding: Surgery scheduling Diagnosis: 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] Planned Procedures: Modified Kidner procedure/posterior tibial tendon advancement right CPT 12205 Incision (skin the skin): 1.25 hours Anesthesia type: General Equipment: FluoroScan Systems/implants: Arthrex 3 mm suture tack tendon anchor Preop meds/orders: 3 g of Ancef IV piggyback preop Cast Thank you! documented in this encounter [facility] 12-12-2024 Note HNO ID: [id number] Author: SEAN MATA DPM Service: ? Author Type: Physician Type: Progress Notes Filed: 12/12/2024 10:46 Note Text: [facility] Department of Orthopedics [facility] Orthopedic Surgery Name: Noel Paul Date of Service: December 12, 2024 CC/HPI: This 34 year old pleasant female patient presents to the clinic today with her present upon referral from Dr. Pato Avelar. 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 DEXCOM G7 SENSOR eduin [...] We will complete scheduling. Sean Mata DPM [facility] 12-12-2024 History of Present illness Narrative [facility] Department of Orthopedics [facility] Orthopedic Surgery Name: Noel Paul Date of Service: December 12, 2024 CC/HPI: This 34 year old pleasant female patient presents to the clinic today with her present upon referral from Dr. Pato Avelar. 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 DEXCOM G7 SENSOR eduin [...] Sean Mata DPM documented in this encounter [facility] 12-12-2024 Note HNO ID: [id number] Author: JAMAL REYNOSO RT(R) Service: ? Author Type: Technologist Type: [...] PATIENT PRESENTS WITH AN IMPLANTABLE OR ATTACHED UNDER GROUND MINER: No RADIOLOGY DEPARTMENT: General X-ray: Exam(s) Completed: Lower Extremity X-Ray(s): Foot, Right PERIPHERAL IV DATA: Not applicable SIGNED BY: RT Manju(R) December 12, 2024 9:29 AM [facility] 12-12-2024 History of Present illness Narrative [...] PATIENT PRESENTS WITH AN IMPLANTABLE OR ATTACHED UNDER GROUND MINER: No RADIOLOGY DEPARTMENT: General X-ray: Exam(s) Completed: Lower Extremity X-Ray(s): Foot, Right PERIPHERAL IV DATA: Not applicable SIGNED BY: RT Manju(R) December 12, 2024 9:29 AM documented in this encounter [facility] 11-26-2024 Note Orthopedic Surgery Subjective Pain [...] today as a referral 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 Kat Her MD Orthopedic Surgery, International Logistics Coordinator [facility] 11/26/2024 [facility] 10-24-2024 History of Present illness Narrative Patient: [...] today for follow-up of MRI results at [facility]. Allergies: Allergies Allergen Reactions Sulfa Antibiotics Rash and Hives Past Medical History: Past Medical History: Diagnosis Date Diabetes ([facility]) Ear problems GERD (gastroesophageal reflux disease) 2012 [...] 2 diabetes mellitus without complication, 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 exterminator helper insulin use ([facility]) 3. Accessory navicular bone of right foot [...] need more invasive surgery. Will refer to [facility] Dr. [place] for referral and consultation at tertiary care center secondary to more advanced type procedure may be necessary. Will refer for consultation and possible further intervention Pato Avelar DPM documented in this encounter [facility] 10-04-2024 History of Present illness [...] History: Past Medical History: Diagnosis Date Diabetes ([facility]) Ear problems GERD (gastroesophageal reflux disease) 2011 [...] other etiology of foot pain right Pato Avelar DPM documented in this encounter [facility] 09-20-2024 History of Present illness [...] History: Past Medical History: Diagnosis Date Diabetes ([facility]) Ear problems GERD (gastroesophageal reflux disease) 2011 [...] inflated for proper custom fitting by Pato Avelar DPM and staff. A verbal order was given for dispensing of device. The patient is ambulatory and may benefit functionally from this device. It may be used for the following conditions as noted per medical diagnosis. Pato Avelar DPM documented in this encounter [facility] 09-07-2024 Telephone encounter Note Has been called for possible increase in pain medication and will switch from hydrocodone to oxycodone and sent to [facility] and [place] [facility] 09-07-2024 Miscellaneous Notes Has been called for possible increase in pain medication and will switch from hydrocodone to oxycodone and sent to [facility] and [place] documented in this encounter [facility] 08-30-2024 History of Present illness [...] History: Past Medical History: Diagnosis Date Diabetes ([facility]) Ear problems GERD (gastroesophageal reflux disease) 2011 [...] cool tibia to toes b/l NEURO: 5.07 [place] Deyanira monofilament test positive to digits and [...] 2 diabetes mellitus without complication, 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 jail insulin use ([facility]) 3. Heel spur, left 4. Plantar fasciitis [...] risks, alternatives, benefits, post op complications and exterminator helper expectations were discussed including but not limited to: infection,bone infection,wound dehiscence hardware failure and irritation,wound dehiscence,delay union/mal union/non union of bone. RSDS,neuroma,duty limitations,DVT/PE, MS,nerve damage, scar, loss of sensation, swelling. Pt [...] signed and in chart if warranted. Pato Avelar DPM, FACFAS H&P up to date and current (date) August 30, 2024 Pato Avelar DPM documented in this encounter [facility] 08-02-2024 History of Present illness [...] History: Past Medical History: Diagnosis Date Diabetes ([facility]) Ear problems GERD (gastroesophageal reflux disease) 2011 [...] 2 diabetes mellitus without complication, 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 exterminator helper insulin use ([facility]) PLAN Patient to continue with oral anti [...] Patient may continue with conservative treatments including pplh-zea-exxnhzl anti-inflammatories and other treatments suggested today. Patient may want to be scheduled for surgical intervention in the near future. Patient had a right modified Kidner procedure to the right foot with removal of accessory navicular with postoperative pain medicine of [place] and will see family Lien for preop clearance. This condition is unrelated to prior condition Pato Avelar DPM documented in this encounter [facility] 07-31-2024 Telephone encounter Note Pt called back, would like scanned at next appt [facility] 07-31-2024 Miscellaneous Notes Pt called back, would like scanned at next appt Left vm to go over benefits Per call to Elda CHILDRESS @ [phone] with Denise Marroquin - I verified the policy is current and active with an effective date of 11/28/2020. L3020 is covered at 100% as both the ded and oop have been met. There are no frequency limits, no exclusions, and no prior authorizations needed. Ref#: [id number]. Please precertify for custom orthotics for the diagnosis of Posterior tibial tendinitis bilaterally documented in this encounter [facility] 07-31-2024 Telephone encounter Note Left vm to go over benefits [facility] 07-27-2024 Telephone encounter Note Per call to Elda CHILDRESS @ [phone] with Denise Marroquin - I verified the policy is current and active with an effective date of 11/28/2020. L3020 is covered at 100% as both the ded and oop have been met. There are no frequency limits, no exclusions, and no prior authorizations needed. Ref#: [id number]. [facility] 07-24-2024 History of Present illness [...] the next 7-10 days. Patient will use avpx-jua-edtyvef ibuprofen 3 times a day with food to help decrease inflammation. The patient may also benefit from a mouth guard. We will consider referral to Dr. Adali SALAZAR if there is no improvement documented in this encounter [facility] 07-19-2024 Telephone encounter Note Please precertify for custom orthotics for the diagnosis of Posterior tibial tendinitis bilaterally [facility] 07-19-2024 History of Present illness Narrative Patient: Noel Paul : 1990 PCP: [facility] Provider MD Milad SUBJECTIVE This [...] History: Past Medical History: Diagnosis Date Diabetes ([facility]) Medications: Current Outpatient Medications: cholecalciferol (Vitamin D-3) [...] 2 diabetes mellitus without complication, 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 exterminator helper insulin use ([facility]) 3. Accessory navicular bone of right foot [...] the other foot for possible treatments Pato Avelar DPM documented in this encounter [facility] 03-22-2022 Evaluation note Encounter [...] no improvement in 5 to 7 days. 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 Type 2 diabetes mellitus without complication, 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 jail insulin use ([facility]) Heel spur, left Plantar fasciitis Plantar fascial fibromatosis Contracture of left ankle Contracture of right ankle documented in this encounter [facility]* Diagnosis 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 documented in this encounter [facility]* Diagnosis 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 Contracture of right ankle Type 2 diabetes mellitus without complication, 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 exterminator helper insulin use ([facility]) documented in this encounter [facility]* Diagnosis 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 Contracture of right ankle documented in this encounter [facility]* Diagnosis 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 Contracture of right ankle Stress fracture of right foot, initial encounter documented in this encounter [facility]* Diagnosis Stress fracture of right foot, initial encounter- Primary Type 2 diabetes mellitus without complication, 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 exterminator helper insulin use (CMS/HCC) Accessory navicular bone of right foot documented in this encounter [facility]* Diagnosis Posterior tibial tendonitis of right leg- Primary Accessory navicular bone of left foot Type 2 diabetes mellitus without complication, 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 exterminator helper insulin use ([facility]) Accessory navicular bone of right foot documented in this encounter [facility]* Diagnosis Arthralgia of left temporomandibular joint- Primary Left ear pain Unspecified otalgia Chronic rhinitis Fullness in ear, left documented in this encounter [facility]* Diagnosis 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 Posterior tibial tendonitis of right leg Type 2 diabetes mellitus without complication, 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 exterminator helper insulin use ([facility]) documented in this encounter [facility]* Diagnosis Accessory navicular bone of left foot- Primary [facility] Diagnosis Pain in right foot- Primary Pain in limb Accessory navicular bone of right foot [facility] Pain Generalized pain documented in this encounter [facility] Diagnosis 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 documented in this encounter [facility]* Diagnosis Pre-op evaluation- Primary Preoperative examination, unspecified Gastroesophageal reflux disease, 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 esophagitis present Diabetes mellitus without complication ([facility]) Type II or unspecified type diabetes mellitus without mention of complication, not stated as uncontrolled BMI 60.0-69.9, adult (HCC) Body Mass Index 60.0-69.9, adult AQUILES (obstructive sleep apnea) Obstructive sleep apnea (adult) (pediatric) Accessory navicular bone of right foot * Assessment & Plan Note - Ary Rocha APRN.CNP - 12/28/2024 10:06 AM ESTAssociated Problem(s): AQUILES (obstructive sleep apnea) Assessment: does not have CPAP yet * Assessment & Plan Note - Ary Rocha APRN.CNP - 12/28/2024 10:05 AM ESTAssociated Problem(s): BMI 60.0-69.9, adult ([facility]) Assessment: diet and exercise encouraged BMI 62 * Assessment & Plan Note - Ary Rocha APRN.CNP - 12/28/2024 10:05 AM ESTAssociated Problem(s): Diabetes mellitus without complication (HCC) Assessment: managed with oral med, stable Follows up with PCP BG at home 120's HgbA1c 6.6% * Assessment & Plan Note - Ary Rocha APRN.CNP - 12/28/2024 10:04 AM ESTAssociated Problem(s): Acid reflux Assessment: managed with med, stable Follows up with PCP documented in this encounter [facility] note* Diagnosis Pain- Primary Generalized pain Pain Generalized pain Pre-op evaluation- Primary Preoperative examination, unspecified Gastroesophageal reflux disease, 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 esophagitis present Diabetes mellitus without complication (HCC) Type II or unspecified type diabetes mellitus without mention of complication, not stated as uncontrolled BMI 60.0-69.9, adult ([facility]) Body Mass Index 60.0-69.9, adult AQUILES (obstructive sleep apnea) Obstructive sleep apnea (adult) (pediatric) documented in this encounter [facility] note* Diagnosis Pre-op evaluation- Primary Preoperative examination, unspecified Gastroesophageal reflux disease, 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 esophagitis present Diabetes mellitus without complication (HCC) Type II or unspecified type diabetes mellitus without mention of complication, not stated as uncontrolled BMI 60.0-69.9, adult ([facility]) Body Mass Index 60.0-69.9, adult AQUILES (obstructive sleep apnea) Obstructive sleep apnea (adult) (pediatric) S/P foot surgery, right- Primary Accessory navicular bone of right foot documented in this encounter [facility] note* Diagnosis Pre-op evaluation- Primary Preoperative examination, unspecified Gastroesophageal reflux disease, 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 esophagitis present Diabetes mellitus without complication (HCC) Type II or unspecified type diabetes mellitus without mention of complication, not stated as uncontrolled BMI 60.0-69.9, adult ([facility]) Body Mass Index 60.0-69.9, adult AQUILES (obstructive sleep apnea) Obstructive sleep apnea (adult) (pediatric) S/P foot surgery, right- Primary documented in this encounter [facility] general Narrative - Reported* Type Description Date Medical History Acquired hypothyroidism Medical History vitamin D deficiency Surgical History cholecystectomy Hospitalization History No Hospitalization histo ry information [facility] Other History of Present illness Narrative* Pato Avelar, SHITAL - 09/13/2024 3:20 PM EDT Patient: [...] History: Past Medical History: Diagnosis Date Diabetes ([facility]) Ear problems GERD (gastroesophageal reflux disease) 2011 [...] 2 diabetes mellitus without complication, 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 exterminator helper insulin use ([facility]) PLAN Patient to keep dry sterile dressing intact and keep dressing dry with non weightbearing. Patient may take anti-inflammatories as needed for pain. May continue with ice to foot as needed p.r.n. Re-application of posterior splint to the right leg today, Today's procedure is a staged procedure and patient may need further procedures in the future. Reviewed x-rays today with patient Pato Avelar DPM documented in this [facility] course Narrative No data available for this section [facility] Discharge instructions No data available for this section [facility] Discharge instructions Additional Instructions DISCHARGE INSTRUCTIONS FOR PROCEDURE Podiatry, Dr. Avelar -If you need pain pills, start before [...] -Report any increase in swelling to Dr. Avelar immediately -Resume regular diet Call the office if you develop: -Persistent bleeding -Temperature above 100 degrees Fahrenheit. -Persistent vomiting -Calf pain or shortness of breath -Redness or pus at operative site FOLLOW UP Phone numbers: Office [phone] [ ][facility] Work Phone: Progress note No data available for this section [facility] for referral (narrative)* Diagnostic Procedure Only (Routine) - Closed Specialty Diagnoses / Procedures Referred By Contac t Referred To Contact XR IMAGING Diagnoses Pain Procedures XR FOOT GENERAL 3V AP/LAT/OBL RIGHT RADEX FOOT COMPLETE MINIMUM 3 VIEWS Sean Mata DPM [address] [place] [address] [place] [address] Referral ID Status Reason Start Date Expiration Date V isits Requested Visits Authorized [id number] Closed Auto-Generate d Referral 12/05/2024 01/04/2026 1 1 [facility] for referral (narrative)* Diagnostic Procedure Only (Routine) - Closed Specialty Diagnoses / Procedures Referred By Contac t Referred To Contact XR IMAGING Diagnoses Pain Procedures XR FOOT GENERAL 3V AP/LAT/OBL RIGHT RADEX FOOT COMPLETE MINIMUM 3 VIEWS Sean Mata DPM [address] [place] [address] [place] [address] Referral ID Status Reason Start Date Expiration Date V isits Requested Visits Authorized [id number] Closed Auto-Generate d Referral 12/05/2024 01/04/2026 1 1 [facility] Narrative* Diagnostic Procedure Only (Routine) - Closed Specialty Diagnoses / Procedures Referred By Contac t Referred To Contact XR IMAGING Diagnoses Pain Procedures XR FOOT GENERAL 3V AP/LAT/OBL RIGHT RADEX FOOT COMPLETE MINIMUM 3 VIEWS Sean Mata, SHITAL [address] [place] [address] [place] [address] Referral ID Status Reason Start Date Expiration Date V isits Requested Visits Authorized [id number] Closed Auto-Generate d Referral 12/05/2024 01/04/2026 1 1 [facility] Summary Purpose Family History No Family [...] Accessory navicular bone of right foot Pato Avelar DPM [address] [address] Referral ID Status Reason Start Date Expiration Date V isits Requested Visits Authorized [id number] Pending Review 09/07/2024 03/06/2025 1 1 Additional [...] Reason Comments Pain Reason Comments Surgical Followup Reason Comments Pre-Op Exam INFORMATION SOURCE (unrecogn ized section and content) DATE CREATED AUTHOR 05/06/2023 [facility] DATE CREATED AUTHOR AUTHOR'S ORGANIZ ATION 04/26/2024 [facility] DATE CREATED AUTHOR AUTHOR'S ORGANIZ ATION 05/25/2024 [facility] DATE CREATED AUTHOR AUTHOR'S ORGANIZ ATION 07/01/2024 [facility] EPIC DATE CREATED AUTHOR AUTHOR'S ORGANIZ ATION 09/12/2024 [facility] DATE CREATED AUTHOR AUTHOR'S ORGANIZ ATION 09/13/2024 [facility] DATE CREATED AUTHOR AUTHOR'S ORGANIZ ATION 09/15/2024 [facility] DATE CREATED AUTHOR AUTHOR'S ORGANIZ ATION 10/27/2024 [facility] EPIC DATE CREATED AUTHOR AUTHOR'S ORGANIZ ATION 12/09/2024 [facility] DATE CREATED AUTHOR AUTHOR'S ORGANIZ ATION 01/11/2025 [facility] Care Teams (unrecognized sec tion and [...] 16, 2024 End: May 16, 2024 Pato Avelar DPM Attending Provider Active Start: May 16, 2024 End: May 16, 2024 Manager Global Relationship Specialty Start Date End Date Erich Garcia MD [address] [place] [phone] PCP - General Family Medicine 07/24/24 Monique Emmanuel MD [address] [place] [phone] Referring Physician Family Medicine 03/29/24 Monique Emmanuel MD [address] [place] [address] Referring Physician Family Medicine 07/24/24 Jaime Camargo DO [address] [place] [address] Otolaryngology 07/24/24 Manager Global Relationship Specialty Start Date End Date Erich Garcia MD [address] [place] [phone] PCP - General Family Medicine 07/24/24 Monique Emmanuel MD [address] [place] [address] Referring Physician Family Medicine 03/29/24 Monique Emmanuel MD [address] [place] [phone] Referring Physician Family Medicine 07/24/24 Jaime Camargo DO [address] [place] [address] Otolaryngology 07/24/24 Manager Global Relationship Specialty Start Date End Date Erich Garcia MD [address] [place] [phone] PCP - General Family Medicine 07/24/24 Monique Emmanuel MD [address] [place] [address] Referring Physician Family Medicine 03/29/24 Monique Emmanuel MD [address] [place] [phone] Referring Physician Family Medicine 07/24/24 Jaime Camargo DO [address] [place] [address] Otolaryngology 07/24/24 Manager Global Relationship Specialty Start Date End Date Erich Garcia MD [address] [place] [phone] PCP - General Family Medicine 07/24/24 Monique Emmanuel MD [address] [place] [address] Referring Physician Family Medicine 03/29/24 Monique Emmanuel MD [address] [place] [phone] Referring Physician Family Medicine 07/24/24 Jaime Camargo DO [address] [place] [address] Otolaryngology 07/24/24 Manager Global Relationship Specialty Start Date End Date Erich Garcia MD [address] [place] [phone] PCP - General Family Medicine 07/24/24 Monique Emmanuel MD [address] [place] [address] Referring Physician Family Medicine 03/29/24 Monique Emmanuel MD [address] [place] [phone] Referring Physician Family Medicine 07/24/24 Jaime Camargo DO [address] [place] [address] Otolaryngology 07/24/24 Manager Global Relationship Specialty Start Date End Date Erich Garcia MD [address] [place] [phone] PCP - General Family Medicine 07/24/24 Monique Emmanuel MD [address] [place] [address] Referring Physician Family Medicine 03/29/24 Monique Emmanuel MD [address] [place] [phone] Referring Physician Family Medicine 07/24/24 Jaime Camargo DO [address] [place] [address] Otolaryngology 07/24/24 Manager Global Relationship Specialty Start Date End Date Erich Garcia MD [address] [place] [phone] PCP - General Family Medicine 07/24/24 Monique Emmanuel MD [address] [place] [phone] Referring Physician Family Medicine 03/29/24 Monique Emmanuel MD [address] [place] [phone] Referring Physician Family Medicine 07/24/24 Jaime Camargo DO [address] [place] [address] Otolaryngology 07/24/24 Manager Global Relationship Specialty Start Date End Date Erich Garcia MD [address] [place] [phone] PCP - General Family Medicine 07/24/24 Monique Emmanuel MD [address] [place] [phone] Referring Physician Family Medicine 03/29/24 Monique Emmanuel MD [address] [place] [phone] Referring Physician Family Medicine 07/24/24 Jaime Camargo DO [address] [place] [address] Otolaryngology 07/24/24 Manager Global Relationship Specialty Start Date End Date Unallocated, Katerinas MD O[address] [place] [address] PCP - General Family Medicine 03/29/24 Monique Emmanuel MD [address] [place] [phone] Referring Physician Family Medicine 03/29/24 Manager Global Relationship Specialty Start Date End Date Erich Garcia MD [address] [facility] [place] [address] PCP - General Family Medicine 07/24/24 Monique Emmanuel MD [address] [place] [address] Referring Physician Family Medicine 03/29/24 Monique Emmanuel MD [address] [place] [phone] Referring Physician Family Medicine 07/24/24 Jaime Camargo DO [address] [facility] [place] [address] Otolaryngology 07/24/24 Manager Global Relationship Specialty Start Date End Date Unallocated, Noms MD Ousmane [address] [place] [address] PCP - General Family Medicine 03/29/24 Monique Emmanuel MD [address] [place] [phone] Referring Physician Family Medicine 03/29/24 Manager Global Relationship Specialty [place] [address] [place] [phone] PCP - General Family Medicine 07/24/24 Monique Emmanuel MD [address] [place] [address] Referring Physician Family Medicine 03/29/24 Monique Emmanuel MD [address] [place] [address] Referring Physician Family Medicine 07/24/24 Jaime Camargo DO [address] [place] [address] Otolaryngology 07/24/24 Manager Global Relationship Specialty Start Date End Date Erich Garcia MD [address] [place] [address] PCP - General Family Medicine 07/24/24 Monique Emmanuel MD [address] [place] [phone] Referring Physician Family Medicine 03/29/24 Monique Emmanuel MD [address] [place] [phone] Referring Physician Family Medicine 07/24/24 Jaime Camargo DO [address] [place] [address] Otolaryngology 07/24/24 Manager Global Relationship Specialty Start Date End Date Erich Garcia MD [address] [place] [phone] PCP - General Family Medicine 07/24/24 [place] [address] [place] [address] Referring Physician Family Medicine 03/29/24 Monique Emmanuel MD [address] [place] [phone] Referring Physician Family Medicine 07/24/24 Jaime Camargo DO [address] [place] [address] Otolaryngology 07/24/24 Manager Global Relationship Specialty Start Date End Date Unallocated, Noms MD Ousmane [address] [place] [address] PCP - General Family Medicine 03/29/24 07/23/24 [place] [address] [place] [phone] PCP - General Family Medicine 07/24/24 Monique Emmanuel MD [address] [place] [phone] Referring Physician Family Medicine 03/29/24 Monique Emmanuel MD [address] [place] [phone] Referring Physician Family Medicine 07/24/24 Jaime Camargo DO [address] [place] [address] Otolaryngology 07/24/24 Manager Global Relationship Specialty Start Date End Date Monique Emmanuel CNP [address] [place] [address] PCP - General Internal Medicine 12/17/24 Manager Global Relationship Specialty Start Date End Date Monique Emmanuel CNP [address] [place] [address] PCP - General Internal Medicine 12/17/24 Manager Global Relationship Specialty Start Date End Date Monique Emmanuel CNP [address] [place] [address] PCP - General Internal Medicine 12/17/24 Manager Global Relationship Specialty Start Date End Date Monique Emmanuel CNP [address] [place], [place] [phone] PCP - General Internal Medicine 12/17/24 Manager Global Relationship Specialty Start Date End Date Monique Emmanuel CNP [address] [place] [address] PCP - General Internal Medicine 12/17/24 Manager Global Relationship Specialty Start Date End Date Monique Emmanuel CNP [address] [place] [address] PCP - General Internal Medicine 12/17/24 Goals (unrecognized section and content) Goals may be documented in a n alternate section Source Comments (unrecognize d section and content) In the event this informatio n is protected by the Federal Confidentiality of Alcohol and Drug Abuse Patient Records regulations: The Federal rules restrict any use of the information to criminally investigate or prosecute any alcohol or drug abuse patient.[place] [facility] the event this information is protected by the Federal Confidentiality of Alcohol and Drug Abuse Patient Records regulations: The Federal rules restrict any use of the information to criminally investigate or prosecute any alcohol or drug abuse patient.[facility]In the event this information is protected by the Federal Confidentiality of Alcohol and Drug Abuse Patient Records regulations: The Federal rules restrict any use of the information to criminally investigate or prosecute any alcohol or drug abuse patient.[facility]In the event this information is protected by the Federal Confidentiality of Alcohol and Drug Abuse Patient Records regulations: The Federal rules restrict any use of the information to criminally investigate or prosecute any alcohol or drug abuse patient.[facility]In the event this information is protected by the Federal Confidentiality of Alcohol and Drug Abuse Patient Records regulations: The Federal rules restrict any use of the information to criminally investigate or prosecute any alcohol or drug abuse patient.[facility]In the event this information is protected by the Federal Confidentiality of Alcohol and Drug Abuse Patient Records regulations: The Federal rules restrict any use of the information to criminally investigate or prosecute any alcohol or drug abuse patient.[facility]In the event this information is protected by the Federal Confidentiality of Alcohol and Drug Abuse Patient Records regulations: The Federal rules restrict any use of the information to criminally investigate or prosecute any alcohol or drug abuse patient.[facility]In the event this information is protected by the Federal Confidentiality of Alcohol and Drug Abuse Patient Records regulations: The Federal rules restrict any use of the information to criminally investigate or prosecute any alcohol or drug abuse patient.[facility]In the event this information is protected by the Federal Confidentiality of Alcohol and Drug Abuse Patient Records regulations: The Federal rules restrict any use of the information to criminally investigate or prosecute any alcohol or drug abuse patient.[facility]In the event this information is protected by the Federal Confidentiality of Alcohol and Drug Abuse Patient Records regulations: The Federal rules restrict any use of the information to criminally investigate or prosecute any alcohol or drug abuse patient.[facility]In the event this information is protected by the Federal Confidentiality of Alcohol and Drug Abuse Patient Records regulations: The Federal rules restrict any use of the information to criminally investigate or prosecute any alcohol or drug abuse patient.[facility] FOR RECORDS PERTAINING TO PATIENTS WHO [...] BE BASED ON THE PRIMARY CLINICAL RECORDS. [facility]. provides no warranty or guarantee of the accuracy or completeness of information in this document.
--- NOTE | 2025-01-19 12:13 | PC.NURSE ---
pt states was getting out of car, slipped and rolled left ankle. pt did not fall.
--- NOTE | 2025-01-19 12:16 | XR_ITS ---
The [address] [address] Patient Name: NOEL ROCHE MRN: [id number] date: 1990 Sex: F Assigned Patient Location: ER Current Patient Location: ER Accession/Order Number: [id number] Exam Date: 01/19/2025 12:45 Report Date: 01/19/2025 12:47 At the request of: ABDON WEBER Procedure: XR ankle LT min 3V XR ankle LT min 3V 01/19/2025 12:43 PM SIGNS AND SYMPTOMS: Pain in left ankle medially and along the calcaneus, twisting injury PROTOCOL: Frontal, lateral, and oblique radiographs of the left ankle COMPARISON: 05/24/2024 FINDINGS: The ankle mortise is preserved. There is no fracture or dislocation. There is nonspecific diffuse soft tissue swelling. There is plantar and Achilles surface calcaneal spurring. XR/XR ankle LT min 3V IMPRESSION: No acute bony injury. Diffuse soft tissue swelling is noted. Impression dictated by: Fermín Wilks M.D.01/19/2025 12:47 PM Dictation Location: [place] [address] Electronically authenticated by: [id number] Y Date: 01/19/2025 12:47
--- NOTE | 2025-01-19 12:17 | ED_ITS ---
HPI HPI - Extremity Injury (Lower) General Chief Complaint: Extremity Injury, Lower Stated Complaint: LOWER EXTREMITY INJURY Time Seen by Provider: 01/19/25 12:08 Source: patient Mode of arrival: Wheelchair Limitations: no limitations History of Present Illness HPI Narrative: cc = left ankle injury Pt was trying to walk along a sidewalk edge while trying to go to breakfast and she caught the sidewalk edge wrong, causing her to twist the left ankle. Her ambulation is limited due to a cast on her right LE. She fell onto the car seat and did not fall to the ground, hit her head, injure her neck or back or any other extremities. It just happened and then she came here, so nothing taken for pain. Related Data Home Medications ?Medication ?Instructions ?Recorded ?Confirmed cholecalciferol (vitamin D3) 125 125 mcg PO QAM 10/26/24 11/20/24 mcg (5,000 unit) tablet escitalopram oxalate 20 mg tablet 20 mg PO QAM 10/26/24 11/20/24 glipizide 5 mg tablet 5 mg PO QAM 10/26/24 11/20/24 metformin 500 mg tablet 500 mg PO BID 10/26/24 11/20/24 phentermine 37.5 mg tablet 37.5 mg PO QAM 10/26/24 11/20/24 trazodone 100 mg tablet 100 mg PO QPM PRN sleep 10/26/24 11/20/24 Previous Rx's ?Medication ?Instructions ?Recorded ketorolac 10 mg tablet 10 mg PO TID 5 days #15 tabs 11/05/24 oxycodone-acetaminophen 5 mg-325 1 tab PO Q4H PRN pain 7 days #40 11/05/24 mg tablet (Percocet) tabs amoxicillin 875 mg-potassium 1 tab PO BID #20 tabs 11/17/24 clavulanate 125 mg tablet ibuprofen 800 mg tablet 800 mg PO Q8H PRN pain #30 tabs 11/17/24 amoxicillin 875 mg-potassium 1 tab PO BID 3 days #6 tabs 11/20/24 clavulanate 125 mg tablet oxycodone-acetaminophen 5 mg-325 1 tab PO Q6H PRN pain #14 tabs 11/20/24 mg tablet (Percocet) Allergies Allergy/AdvReac Type Severity Reaction Status Date / Time Sulfa (Sulfonamide Allergy Severe Hives Verified 01/19/25 12:11 Antibiotics) Opioid HPI Opioid Management Most Recent Pain and Opioid Data: Last Pain Scale 8 01/19/25 12:23 01/19/25 Last MAR Pain Assessment 01/19/25 12:23 Last ORT Total Score 1 11/05/24 18:57 11/05/24 Last ORT Risk Category Low Risk 11/05/24 18:57 11/05/24 PFSH PFSH Medical History (Updated 01/19/25 @ 13:02 by Juanjo Wild) Arthritis of right acromioclavicular joint ?M19.011 - Primary osteoarthritis, right shoulder (ICD-10) Acromioclavicular joint arthritis ?M19.019 - Primary osteoarthritis, unspecified shoulder (ICD-10) Accessory navicular bone of both feet ?Q74.2 - Other congenital malformations of lower limb(s), including pelvic girdle (ICD-10) Navicular fracture of ankle ?S92.253A - Displaced fracture of navicular [scaphoid] of unspecified foot, initial encounter for closed fracture (ICD-10) Osteoarthritis ?M19.90 - Unspecified osteoarthritis, unspecified site (ICD-10) Insomnia ?G47.00 - Insomnia, unspecified (ICD-10) Anxiety ?F41.9 - Anxiety disorder, unspecified (ICD-10) Restless leg ?G25.81 - Restless legs syndrome (ICD-10) GERD (gastroesophageal reflux disease) ?K21.9 - Gastro-esophageal reflux disease without esophagitis (ICD-10) Diabetes ?E11.9 - Type 2 diabetes mellitus without complications (ICD-10) Surgical History (Updated 10/26/24 @ 10:36 by Laura Cabral) History of cholecystectomy ?Z90.49 - Acquired absence of other specified parts of digestive tract (ICD- 10) Family History (Updated 10/26/24 @ 10:32 by Laura Cabral) Other Family history of COPD (chronic obstructive pulmonary disease) Family history of coronary artery disease Family history of diabetes mellitus Family history of seizures Social History (Updated 10/26/24 @ 10:30 by Laura Cabral) Within the past year, how often did you have a drink containing alcohol: never Score interpretation: A score less than 3 is consistent with normal alcohol consumption. 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 The patient is not hypoxic. General: Alert, no acute distress, patient resting comfortably Skin: warm, intact, no pallor noted Head: Normocephalic, atraumatic Eye: Normal conjunctiva Respiratory: No acute distress Musculoskeletal: No evidence of deformity to the L ankle. There is minimal amount of swelling. There is no ecchymosis. No erythema or warmth noted. DP and PT pulses are intact 2+. Normal sensation, normal capillary refill less than 2 seconds. There is no cyanosis or mottling noted. The patient has tenderness throughout the left ankle joint. The patient was able to dorsiflex and plantar flex left ankle although with pain. Patient was able to extend leg off the cart without difficulty. No tenderness noted to the 5th MT, midfoot, or proximal fibular area. There is no pain with calcaneal squeeze, achilles tendon is intact and no defect is palpated. Neurological: alert and orient x4, normal sensory and motor observed. Psychiatric: Cooperative Constitutional Vital Signs, click to edit/add: Last Vital Signs Temp 98.1 F 01/19/25 12:07 Pulse 85 01/19/25 12:07 Resp 20 01/19/25 12:07 BP 172/112 H 01/19/25 12:07 Pulse Ox 97 01/19/25 12:07 O2 Del Method Room Air 01/19/25 12:07 Course Vital Signs Vital signs: Vital Signs Temperature 98.1 F 01/19/25 12:07 Pulse Rate 85 01/19/25 12:07 Respiratory Rate 20 01/19/25 12:07 Blood Pressure 172/112 H 01/19/25 12:07 Pulse Oximetry 97 01/19/25 12:07 Oxygen Delivery Method Room Air 01/19/25 12:07 Temperature 98.1 F 01/19/25 12:07 Pulse Rate 85 01/19/25 12:07 Respiratory Rate 20 01/19/25 12:07 Blood Pressure 172/112 H 01/19/25 12:07 Pulse Oximetry 97 01/19/25 12:07 Oxygen Delivery Method Room Air 01/19/25 12:07 MDM - Extremity Injury (Lower) MDM Narrative Medical decision making narrative: Pt given motrin for pain and xrays of the left ankle obtained. No acute fractures identified. Pt informed of result and the ED nurse applied an juan wrap to the left ankle. The patient apparently has a wheelchair that she is usng - she will need to limit weight bearing as tolerated until pain improves. Imaging Data xr ankle: Radiologist's impression: ITS Impressions Ankle X-Ray 01/19/25 12:16 IMPRESSION: No acute bony injury. Diffuse soft tissue swelling is noted. Impression dictated by: Fermín Wilks M.D.01/19/2025 12:47 PM Dictation Location: [email or web address] Electronically authenticated by: [id number] Y Date: 01/19/2025 12:47 Discharge Plan Discharge Chief Complaint: Extremity Injury, Lower Clinical Impression: Left ankle sprain Patient Disposition: Home, Self-Care Time of Disposition Decision: 13:02 Prescriptions / Home Meds: No Action ibuprofen 800 mg tablet 800 mg PO Q8H PRN (Reason: pain) Qty: 30 0RF amoxicillin-pot clavulanate 875-125 mg tablet 1 tab PO BID Qty: 20 0RF cholecalciferol (vitamin D3) 125 mcg (5,000 unit) tablet 125 mcg PO QAM escitalopram oxalate 20 mg tablet 20 mg PO QAM glipizide 5 mg tablet 5 mg PO QAM phentermine 37.5 mg tablet 37.5 mg PO QAM trazodone 100 mg tablet 100 mg PO QPM PRN (Reason: sleep) metformin 500 mg tablet 500 mg PO BID oxycodone-acetaminophen [Percocet] 5-325 mg tablet 1 tab PO Q4H PRN (Reason: pain) 7 Days Qty: 40 0RF ketorolac 10 mg tablet 10 mg PO TID 5 Days Qty: 15 0RF amoxicillin-pot clavulanate 875-125 mg tablet 1 tab PO BID 3 Days Qty: 6 0RF oxycodone-acetaminophen [Percocet] 5-325 mg tablet 1 tab PO Q6H PRN (Reason: pain) Qty: 14 0RF Print Language: Hungarian Instructions: Ankle Sprain (ED) Referrals: GUERRERO EMMANUEL [Primary Care Provider] - 1 week Discharge Date/Time: 01/19/25 13:17
[2025-01-19] MEDS: IBUPROFEN 400 MG TABLET 800 MG PO (12:23)
[2025-01-19 13:07] VITALS: BP 149/90
== END 2025-01-19 13:17 | disposition home or self-care (01) ==
PROVIDERS: Emergency Provider Emergency Medicine; PCP Nurse Practitioner Family
DX: S93.402A Sprain of unspecified ligament of left ankle, initial encounter (principal); Z90.49 Acquired absence of other specified parts of digestive tract; X50.1XXA Overexertion from prolonged static or awkward postures, initial encounter
CPT/HCPCS: 73610; 99283

== ENCOUNTER 2025-02-11 11:15 | Outpatient (OUT) | payer BC, SELFPAY ==
--- OUTSIDE RECORDS SUMMARY | 2025-02-11 11:24 | XMS_ITS | CCD ---
Author Organization [facility] Care Team Providers Care 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 Name Role Phone Monique Dudley Unavailable MONIQUE [...] Bonds, DR COPPOLA Attending Unavailable BRIDGETTE ., PA MARCELL Consulting UnavailLORI Alfaro Attending Provider LORI Emmanuel Primary Care Provider MONIQUE EMMANUEL Primary Care Physician [phone] Pato Avelar Referring Unavailable Pato Avelar Attending Unavailable Pato Avelar Admitting Unavailable SHITAL Avelar Attending Provider [phone] Monique Emmanuel Primary Care Unavailable Pato Avelar Attending Unavailable Pato Avelar Admitting Unavailable Monique Dudley Attending Unavailable Octavia, Monique Admitting Unavailable Lien, Monique Alicia Primary Care Unavailable BROWN, PATO A Attending [...] A Attending Unavailable JAIME CAMARGO Attending Unavailable LIEN, MONIQUE Referring Unavailable BROWN, PATO A Attending Unavailable [...] Unavailable Unavailable Primary Care Provider Unavailabl e Lien BONILLA, Monique S Primary Care Provider LIEN MONIQUE S Primary Care Unavailable ESPERANZA, CHRISTOPHER Attending Unavailable SELF Referring Unavailable LIEN, MONIQUE S Primary Care Unavailable ESPERANZA, CHRISTOPHER Referring Unavailable ESPERANZA, CHRISTOPHER Attending Unavailable ESPERANZA, CHRISTOPHER Referring Unavailable ESPERANZA, CHRISTOPHER Attending Unavailable ESPERANZA, CHRISTOPHER Referring Unavailable ESPERANZA, CHRISTOPHER Admitting Unavailable SELF Referring Unavailable ESPERANZA, CHRISTOPHER Attending Unavailable LIEN, MONIQUE S Primary Care Unavailable SELF Referring Unavailable LIEN, MONIQUE S Primary Care Unavailable ESPERANZA, CHRISTOPHER Referring Unavailable LIEN, MONIQUE S Primary Care Unavailable LIEN, MONIQUE S Primary Care Unavailable SELF Referring Unavailable Allergies Allergy Classification Reported Allergen(s) Allergy Type Date of Onset Reaction(s) Facility (1 source) Egg protein [facility] Other (1 source) Sulf-10 Drug allergy [facility] Other (1 source) Sulfonamides (Antibiotic) Drug allergy (disorder) 3 [facility] (18 sources) Sulfonamides (Antibiotic); Translations: [Sulfa (Sulfonamide Antibiotics)] [facility] Egg Derived; Translations: [Egg Derived] Allergy to substance 4 [facility] (5 sources) Sulfonamides (Antibiotic); Translations: [sulfa drugs] Drug allergy [facility] (20 sources) Sulfonamides (Antibiotic) Drug Allergy 4 Rash, Hives [facility] Medications Current Medications Medication Drug Class(es) Dates Sig (Normalized) Sig (Original) acetaminophen 325 mg / HYDROcodone bitartrate 5 mg oral tablet (2 sources) Opioid Agonist Start: 08-30-2024 End: 09-04-2024 take 1 tablet by mouth every eight hours as needed for pain HYDROcodone-aceta minophen (Rinard) 5-325 MG tablet Indications: Pain Take 1 tablet by mouth every 8 (eight) hours if needed for moderate pain (PRN pain) for up to 5 days 15 tablet 08/30/2024 09/04/2024 Active acetaminophen 325 mg / oxyCODONE hydrochloride 5 mg oral tablet (16 sources) Opioid Agonist Start: 12-31-2024 End: 01-05-2025 [...] 5 days 15 tablet 09/07/2024 09/12/2024 Active amoxicillin 875 mg / clavulanate 125 mg oral tablet (1 source) Penicillin-class Antibacterial Start: 02-05-2025 take 1 tablet by mouth every twelve hours Amoxicillin-Pot Clavulanate 875-125 mg tablet Active 1 TAB PO Every 12 hours 20 February 05, 2025 12:00am aspirin 325 mg oral tablet (7 sources) Platelet Aggregation Inhibitor, Nonsteroidal Anti-inflammatory Drug Start: 12-31-2024 End: 02-14-2025 Aspirin 325 mg tablet Active MG PO February 05, 2025 12:00am Blood-Glucose Sensor (Dexcom G7 Sensor) device (1 source) Start: 02-05-2025 Blood-Glucose Sensor (Dexcom G7 Sensor) device Active EACH .ROUTE .MEDSUPPLY February 05, 2025 12:00am As directed Blood-Glucose Transmitter (Dexcom G6 Transmitter) device (1 source) Start: 02-05-2025 Blood-Glucose Transmitter (Dexcom G6 Transmitter) device Active EACH .ROUTE .MEDSUPPLY February 05, 2025 12:00am As directed celecoxib 200 mg oral capsule (1 source) Nonsteroidal Anti-inflammatory Drug Start: 02-05-2025 Celecoxib 200 mg capsule Active MG PO February 05, 2025 12:00am cholecalciferol 0.125 mg oral tablet (20 sources) Vitamin D Start: 01-30-2024 take 1 tablet by mouth once daily Cholecalciferol (Vitamin D3) 125 mcg (5,000 unit) tablet Active 125 MCG PO Daily February 27, 2024 12:00am take 1 tablet by mouth once billy y cholecalciferol (VITAMIN D3) 5,000 unit tab Take 5,000 Units by mouth once daily. Active DEXCOM G6 TRANSMITTER eduin (11 sources) Start: 09-03-2024 DEXCOM G6 DAMIAN SMITTER eduin as directed. 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 G7 TRADER misc (11 sources) Start: 09-20-2024 DEXCOM G7 RECE IVER 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 09/20/2024 Active DEXCOM G7 SENSOR eduin (11 sources) Start: 12-12-2024 DEXCOM G7 SENS OR eduin 12/12/2024 Active glipiZIDE 5 mg oral tablet (12 sources) Sulfonylurea Start: 02-05-2025 Glipizide 5 mg tablet Active MG PO February 05, 2025 12:00am Start: 12-06-2024 glipiZIDE (GLU COTROL) 5 mg tablet 12/06/2024 Active ketorolac tromethamine 10 mg oral tablet (6 sources) Nonsteroidal Anti-inflammatory Drug, Cyclooxygenase Inhibitor Start: [...] take 1 tablet by jose twice daily Metformin 500 mg tablet Active 500 MG PO Twice daily February 27, 2024 12:00am omeprazole 20 mg delayed release oral capsule (20 sources) Proton Pump Inhibitor Start: 02-27-2024 take 1 capsule by mouth once daily Omeprazole 20 mg capsule,delayed release(DR/EC) Active 20 MG PO Daily February 27, 2024 12:00am promethazine hydrochloride 12.5 mg oral tablet (4 [...] tablet (20 sources) Serotonin Reuptake Inhibitor Start: 02-05-2025 Trazodone 100 mg tablet Active MG PO February 05, 2025 12:00am Start: 10-04-2024 take 1 tablet by jose th once daily at bedtime as needed traZODone (DESYREL) 100 mg tablet TAKE 1 TABLET BY MOUTH EVERYDAY AT BEDTIME NEEDED 10/04/2024 Active Start: 05-16-2024 take 100 mg by mouth once daily at bedtime Trazodone Active 100 MG PO Daily at bedtime May 16, 2024 12:00am Start: 04-25-2024 End: 02-05-2025 take 2 tablets by mouth once daily at bedtime Trazodone 50 mg tablet Discontinued 100 MG PO Daily at bedtime May 16, 2024 12:00am February 05, 2025 4:46pm Start: 03-12-2024 traZODone (Karthikeyan yrel) 50 MG tablet 1 (one) time each day at the same time 03/12/2024 Active Valentine Sling (3 sources) Start: 02-27-2024 Valentine Slin g Active 0 .Route 1 February 27, 2024 12:00am As directed Valentine Sling unit (1 source) Start: 02-27-2024 Valentine Slin g unit Active 0 .Route 1 February 27, 2024 12:00am As directed Vitamin D (3 sources) Start: 04-25-2024 Vitamin D Oral , Daily, Refills(s) 0, Prophylaxis Start Date: 04/25/24 Status: Ordered Completed/Discontinued Medications Medication Drug Class(es) Dates Sig (Normalized) Sig (Original) escitalopram 20 mg oral tablet (20 sources) Serotonin Reuptake Inhibitor Start: 04-25-2024 End: 02-05-2025 take 1 tablet by mouth once daily Escitalopram Oxalate 20 mg tablet Discontinued 20 MG PO Daily May 16, 2024 12:00am February 05, 2025 4:47pm Start: 03-12-2024 Lexapro 10 MG tablet 1 (one) time each day at the same time 03/12/2024 Active take 0.5 tablet by m outh once daily, then take 1 tablet by mouth once daily escitalopram oxalate (LEXAPRO) 20 mg tablet TAKE 1/2 TABLET BY MOUTH ONCE A DAY FOR 1 WEEK THEN 1 TABLET ONCE A DAY Active Problems Active Problems Problem Classification Problem Date [...] D deficiency] Onset: 08-19-2022 04-25-2024 Chronic Osteoarthritis (7 sources) Arthritis of right acromioclavicular joint; Translations: [...] Episodic Other nutritional; endocrine; and metabolic disorders (8 sources) Morbid obesity; Translations: [Body mass index [...] sources) Pancreatitis 02-08-2014 Episodic Residual codes; unclassified (8 sources) Obstructive sleep apnea syndrome; Translations: [Obstructive sleep apnea (adult) (pediatric)] Onset: 12-28-2024 12-28-2024 Chronic Residual codes; unclassified (2 sources) Pain; Translations: [Pain, unspecified] 12-12-2024 Episodic Residual codes; unclassified (4 sources) History of operative procedure on foot; Translations: [Other specified postprocedural states] 01-03-2025 Episodic Residual codes; unclassified (1 source) Other specified postprocedural states; Translations: [S/P foot surgery, right] Onset: 01-09-2025 Episodic Residual codes; unclassified (1 source) Pain, unspecified; Translations: [Pain] Onset: 12-12-2024 Episodic Unclassified (1 source) CONTACT W/AND (SUSP) EXPOS COVID-19; Translations: [CONTACT W/AND (SUSP) EXPOS COVID-19] Onset: 01-06-2023 Unclassified (2 sources) History of operative procedure on foot 01-09-2025 Past or Other Problems Problem Classification Problem [...] Test Name Value Interpretation Reference Range Facility [facility] 01-23-2025 CNOV Office Visit (LOORRM ) POLLONOEL ORTIZ Tadeo ([id number]) 1990 F [place] Date Time Provider Department 01/23/25 11:30 AM CAST TECH COLEEN BLANKENSHIP During your visit today, we recorded the following information about you: Beverly Dobson Cast Tech 01/23/2025 11:52 AM Signed Patient in today for scheduled appointment. Cast removed. Right leg cleansed with sea-clens. Examined by Dr. Mata. Applied A Short Leg Nonweightbearing Cast to the right leg. Instructions on cast care given. Will f/u as scheduled/prn. HAYES Johnson Referring Provider: SELF [200] Allergies As of Date: 01/23/2025 Noted Allergy Reaction SULFA (SULFONAMIDE ANTIBIOTICS) 03/29/2024 4 - Hives 2 - Rash Date Reviewed: 12/31/2024 Reviewed by: Loren Martinez, RN - Fully Assessed Primary Visit Diagnosis:S/P foot surgery, right [Z98.890] Prescriptions as of 01/23/2025 - keTORolac (TORADOL) 10 mg tablet Take 1 tablet by mouth every 6 hours as needed. with food. - aspirin 325 mg tablet Take 1 tablet by mouth once daily. - DEXCOM G7 TRADER 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 - DEXCOM G7 SENSOR [...] BEDTIME NEEDED Problem List As Of Date 01/23/2025 Noted Resolved Acid reflux [K21.9] 07/21/2024 Anxiety [F41.9] 07/21/2024 Diabetes mellitus without complication (HCC) [E*07/21/2024 Vitamin D deficiency [E55.9] 07/21/2024 Arthritis of right acromioclavicular joint [M19*12/28/2024 BMI 60.0-69.9, adult (HCC) [Z68.44] 12/28/2024 AQUILES (obstructive sleep apnea) [G47.33] 12/28/2024 Encounter Status:Closed by BEVERLY DOBSON on 01/23/[address] [facility] Office Visit (LOORRM ) NOEL PAUL ([id number]) 1990 F [place] Date Time Provider Department 01/23/25 11:30 AM SEAN MATA During your visit today, we recorded the following information about you: Sean Mata DPM 01/23/2025 11:47 AM Signed PRIMARY SERVICE: [facility] Podiatry SUBJECTIVE: Patient is seen today for her second scheduled postop visit with her present 3 weeks status post a revision of modified Kidner procedure of her right foot without complaints. Medical: PAST MEDICAL HISTORY PAST MEDICAL HISTORY Diagnosis Date Diabetes mellitus (HCC) GERD (gastroesophageal reflux disease) Obesity AQUILES (obstructive sleep apnea) PONV (postoperative nausea and vomiting) ALLERGIES: ALLERGIES ALLERGIES Allergen Reactions Sulfa (Sulfonamide * Hives, Rash MEDICATIONS: CURRENT MEDICATIONS Current Outpatient Medications Medication Sig keTORolac (TORADOL) 10 mg tablet Take 1 tablet by mouth every 6 hours as needed. with food. aspirin 325 mg tablet Take 1 tablet by mouth once daily. promethazine (PHENERGAN) 12.5 mg tablet Take 1 tablet by mouth every 8 hours as needed for up to 10 days. DEXCOM G7 TRADER 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 DEXCOM G7 SENSOR eduin [...] for this visit. Surgical: PAST SURGICAL HISTORY PAST SURGICAL HISTORY Procedure Laterality Date PAST SURGICAL HISTORY OF Bilateral foot x2 PAST SURGICAL HISTORY OF Right shoulder REMOVAL GALLBLADDER PHYSICAL EXAM: The patient is alert and oriented x 3 and in no apparent acute distress. Patient presents with a clean dry intact BK fiberglass cast and dressings on the right lower extremity [...] Satisfactory postop progress right foot status post 3 weeks appropriate to continue as is TREATMENT TODAY: Second postop visit right foot Discussed results of clinical examination with the patient and family in detail upon removal of the BK fiberglass cast and dressings. Painted incision with Betadine. Reapplied a bulky dry sterile dressing sterile 4 x 4's Kerlix followed by well-padded BK fiberglass nonweightbearing cast dorsiflexed to resistance and inverted. I will see the patient back in approximately 3 weeks for reevaluation with final cast. Continue nonweightbearing until further advised. We will begin progressive partial weightbearing next visit in an Aircast CAM Walker boot and refer to physical therapy. 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 with food. - aspirin 325 mg tablet Take 1 tablet by mouth once daily. - DEXCOM G7 TRADER 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 - DEXCOM G7 SENSOR [...] BY MOUTH EVERY DAY for 90 - oxyCOD (more content not included)... Normal [facility] CNCOon 01-09-[address] [facility] CNOVon 01-09-2025 CNOV Office Visit (LOORRM ) NOEL PAUL ([id number]) 1990 F [place] Date Time Provider Department 01/09/25 10:15 AM SEAN MATA LOORRM During your visit today, we recorded the following information about you: Sean Mata DPM 01/09/2025 10:55 AM Signed PRIMARY SERVICE: [facility] Podiatry SUBJECTIVE: Patient is seen today for [...] for up to 10 days. DEXCOM G7 TRADER 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 DEXCOM G7 SENSOR eduin [...] [Q74.2] Order(s):XR FOOT GENERAL 3V AP/LAT/OBL RIGHT [[id number]] Order #: [id number] FUTURE Prescriptions as of 01/09/2025 - keTORolac (TORADOL) 10 mg tablet Take 1 tablet by mouth every 6 hours as needed. with food. - aspirin 325 mg tablet Take 1 tablet by mouth once daily. - promethazine (PHENERGAN) 12.5 mg tablet Take 1 tablet by mouth every 8 hours as needed for up to 10 days. - DEXCOM G7 TRADER 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 - DEXCOM G7 SENSOR [...] R (more content not included)... Normal [facility] Office Visit (LOORRM ) NOEL PAUL ([id number]) 1990 F [place] Date Time Provider Department 01/09/25 9:30 AM CAST TECH COLEEN RAYMONDDMMadi During your visit today, we recorded the [...] up to 10 days. - DEXCOM G7 TRADER 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 - DEXCOM G7 SENSOR [...] Encounter Status:Closed by SHAYLEE CONCEPCION on 01/09/25 [facility] Vaibhav 01-02-2025 [place] Telephone (PATTIE) NOEL PAUL ([id number]) 1990 F [place] Date Time Provider Department 01/02/25 SEAN MATA During your visit today, we recorded the following information about you: Sean Mata DPM 01/02/2025 12:40 PM Signed Called patient at [phone] to return call regarding pain management. I [...] Date Reviewed: 12/31/2024 Reviewed by: Loren Martinez, RN - Fully Assessed Prescriptions as of 01/02/2025 [...] up to 5 days. - DEXCOM G7 TRADER 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 - DEXCOM G7 SENSOR [...] Encounter Status:Closed by SEAN MATA on 01/02/25 Normal [facility] ANES POSTPROC EVALon 025 ANES POSTPROC EVAL HNO ID: [id number] Author: PETER BROWN MD Service: Anesthesiology Author Type: Anesthesiologist Type: Anesthesia Postprocedure Evaluation Filed: 12/31/2024 11:19 Note Text: POST ANESTHESIA EVALUATION NOTE : 1990 Procedure Summary Date: 12/31/24 Room / Location: [address] Anesthesia Start: 737 Anesthesia Stop: 100 Procedure: RECONSTRUCTION POSTERIOR TIBIAL TENDON W/EXCISION OF ACCESSORY TARSAL NAVICULAR BONE (Right: Foot) Diagnosis: 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]) Surgeons: Sean Mata, DPM Responsible Provider: Peter Brown MD Anesthesia [...] December 31, 2024 TIME: 11:19 AM CSN: [id number] Normal [facility] ANES PRE-OPon 12-31-2024 ANES PRE-OP HNO ID: [id number] Author: PETER BROWN MD Service: Anesthesiology Author Type: Anesthesiologist Type: Anesthesia Preprocedure Evaluation Filed: 12/31/2024 07:32 Note Text: ANESTHESIOLOGY DAY OF SURGERY NOTE : 1990 Procedure Information Date/Time: 12/31/24729 Procedure: RECONSTRUCTION POSTERIOR TIBIAL TENDON W/EXCISION OF ACCESSORY TARSAL NAVICULAR BONE (Right: Foot) Location: [place] [address] / [facility] Surgeons: Sean Mata DPM Estimated [...] Vitals Value Taken Time BP 143/89 12/31/24 07 Pulse 18 12/31/24 07 Resp 16 12/31/24 07 Temp 36.3 ?C (97.4 ?F) 12/31/24 07 SpO2 97 % 12/31/24 07 Facility-Administered Medications as of 12/31/2024 Medication Dose [...] of 12/31/2024 Medication Sig - DEXCOM G7 TRADER 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 - DEXCOM G7 SENSOR [...] December 31, 2024 TIME: 7:31 AM CSN: [id number] Normal [facility] BRIEF OP NOTon 12-31-2024 BRIEF OP NOT HNO ID: [id number] Author: SEAN MATA DPM Service: Podiatry Author Type: Physician Type: Brief Op Note Filed: 12/31/2024 09:42 Note Text: BRIEF OPERATIVE / PROCEDURE NOTE LOG ID: [id number] SURGERY/PROCEDURE DATE: 12/31/2024 INCISION/PROCEDURE START TIME: 8:16 AM INCISION CLOSE/PROCEDURE END TIME: SURGEON(S)/PROCEDURAL IST(S) AND FOREST SUPERVISOR(S): Surgeons and Role: * Sean Mata DPM [...] SIGNATURE: Sean Mata DPM PATIENT NAME: Noel Abadphilip DATE: December 31, 2024 TIME: 9:39 AM Normal [facility] CNPNon 12-31-2024 [facility] Telephone (ORQ) MELCHORNOEL ([id number]) 1990 F [place] Date Time Provider Department [...] calling: self Call patient at: at home [phone] (home) [phone] (cell) Was an appointment scheduled: No Closing statement: Results or non-symptom based questions: Thank you for calling [facility], your call will be returned within the next business day. Karissa Torrez MA 12/31/2024 3:26 PM Signed Message has been sent directly to Dr Mata's phone. Sean Mata DPM 01/01/2025 3:53 PM Signed Called patient at her Lonnie's cell number at [phone] to check on postop progress. Received voicemail. [...] call, states she is in terrible pain / States Percocet is not working Please advise Natalia Barrios CT 01/03/2025 5:17 PM Signed Toradol was sent in for the patient. Allergies As of Date: 12/31/2024 Noted Allergy Reaction SULFA (SULFONAMIDE ANTIBIOTICS) 03/29/2024 4 - Hives 2 - Rash Date Reviewed: 12/31/2024 Reviewed by: Loren Martinez, ABA - Fully Assessed Reason for Visit: Surgical [...] up to 5 days. - DEXCOM G7 TRADER 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 - DEXCOM G7 SENSOR [...] Status:Closed by SEAN MATA on 01/01/25 Normal [facility] OPERATIVE NOon 12-31-2024 OPERATIVE NO HNO ID: [id number] Author: SEAN MATA DPM Service: Podiatry Author Type: Physician Type: Operative Report Filed: 01/24/2025 08:37 Note Text: - Operative Report [id number] [address] [place] NOEL PAUL : 1990 AGE: 34. SEX: F PATIENT TYPE: OP HOSP SVC: ORTS LOCATION: [id number] ATTENDING PHYSICIAN: Sean Mata DPM CSN NUMBER: [id number] DATE OF SURGERY/PROCEDURE: 12/31/2024 INCISION/PROCEDURE START TIME: 8:16 a.m. INCISION CLOSE/PROCEDURE END TIME: 9:43 a.m. The procedure was performed in conjunction with the resident who was present in the operating room today under my direct supervision from skin to skin. PREOPERATIVE DIAGNOSIS: Painful remaining accessory navicular, right foot. POSTOPERATIVE DIAGNOSIS: Painful remaining accessory navicular, right foot. SURGEON: Sean Mata DPM FOREST SUPERVISOR: Maurice Bernard D.P.M. SURGERY/PROCEDURE: Revisional modified Kidner procedure, right foot, CPT 84868. ANESTHESIA: General with a local field block consisting of 20 mL of 2% lidocaine plain. LOCATION: [facility]. HEMOSTASIS: Right pneumatic thigh tourniquet at 350 mmHg. ESTIMATED BLOOD LOSS: 20 mL. PROPHYLAXIS: 3 g of Ancef IV piggyback preop. COMPLICATIONS: None. CONDITION: Satisfactory. MATERIALS: One Arthrex 3 mm SutureTak tendon anchor. #0 Ethibond, 2-0 and 3-0 Vicryl, and 4-0 Monocryl sutures. CLOSURE: Primary. INDICATIONS FOR OPERATION: The patient was last seen in our office on December 12, [address] Pato Avelar. The patient underwent right foot surgery in August with another physician for an accessory navicular and has had subsequent pain ever since. She still had a prominence over the navicular tuberosity. Radiographs and MRI revealed a stress response within the remaining accessory navicular. The patient opted to proceed with surgical intervention and declined further conservative measures. DESCRIPTION OF PROCEDURE: The patient was brought to the preoperative holding area where an IV line was started by the nursing staff. 3 g of Ancef was infused IV piggyback for prophylaxis. The patient was transported to the operating room and placed on the operating table in a supine position. After general anesthesia with intubation was achieved, a local field block was performed circumferentially about the expected surgical site utilizing approximately 20 mL of 2% lidocaine plain. A well-padded pneumatic thigh tourniquet was applied to the right lower extremity, but not yet inflated. The patient's right foot and lower leg were then prepped with Hibiclens and draped in usual sterile manner. The patient's right foot and lower leg were elevated and exsanguinated and the right pneumatic thigh tourniquet was inflated to 350 mmHg for hemostasis. The patient was brought to the preoperative holding area where an IV line was started by the nursing staff. 3 g of Ancef was infused IV piggyback for prophylaxis. The patient was transported to the operating room and placed on the operating table in a supine position. After general anesthesia with intubation was achieved, a local field block was performed at the expected surgical site utilizing 20 mL of 2% lidocaine plain. A well-padded pneumatic thigh tourniquet was applied to the right lower extremity, but not inflated. The patient's right foot and lower leg were then prepped with Hibiclens and draped in the usual sterile manner. The patient's right foot and lower leg were elevated and exsanguinated and the right pneumatic thigh tourniquet was inflated to 350 mmHg for hemostasis. Attention was directed to the medial aspect of the right foot where the postsurgical scar was appreciated. Two longitudinal semielliptical connecting incisions were made surrounding the incision to remove the hypertrophic scar approximately 6 cm in length and a couple of millimeters in width. The wedge of skin was removed in toto. We then dissected through the subcutaneous tissue down to the level of the posterior tibial tendon sheath. An inverted L incision was made within the posterior tibial tendon insertion distally. It was reflected proximally. The medial arm of the posterior tibial tendon was completely detached. The lateral and recurrent arms were left intact. Utilizing a sagittal saw, we removed a large portion of the gorilloid navicular and accessory navicular. This was confirmed with the FluoroScan to help complete resection. The wound was flushed with copious amounts of normal sterile saline. We then used an Arthrex 3 mm SutureTak tendon anchor to reattach the posterior tibial tendon in the usual manner with the foot adducted and plantar flexed for appropriate physiologic tension. After suturing the tendon to the bone with a SutureTak, we then used some uybl-[id number] sutures distally to the distal (more content not included)... Normal [facility] Pathology biopsy report Joseph (Tiss)on 12-31-2024 CASE REPORT Normal [facility] Comment on above: Order Comment: Speci men Type: TISSUE SPECIMENOrdering Facility: [facility] Address: [address] [place] [address] Result Comment: Surg [facility] Pathology Report Case: [id number] Authorizing Provider: Sean Mata, Collected: 12/31/2024 09:51 AM DPM Ordering Location: Ambulatory Surgery Received: 12/31/2024 01:28 PM Pathologist: Shemar Pablo MD Specimen: Bone and Soft Tissue, right foot Performed By: #### 6 6121-5 ####[facility] [id number] [place] [address] 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 LABCLIA [id number] [address] [place] FINAL DIAGNOSIS Normal [facility] Comment on above: Order Comment: Speci men Type: TISSUE SPECIMENOrdering Facility: [facility] Address: [address] [place] [address] Result Comment: A. B one, right foot, excision: - Osteocartilaginous tissue with degenerative changes and granulation tissue. Performed By: #### 6 6121-5 ####[facility] [id number] [place] [address] [facility] LABCLIA [id number] [place] [address] [place] FINAL PERFORMING LAB Normal [facility] Comment on above: Order Comment: Speci men Type: TISSUE SPECIMENOrdering Facility: [facility] Address: [address] [place] [address] Result Comment: Diag nostic interpretation performed at: [facility], [address] [facility] [address] CLIA# [id number] Life Skills Worker: Fermín Ojeda MD Performed By: #### 6 6121-5 ####[facility] [id number] [place] [address] [facility] LABCLIA [id number] [address] GROSS DESCRIPTION Normal [facility] Comment on above: Order Comment: Speci men Type: TISSUE SPECIMENOrdering Facility: [facility] Address: [address] [place] [address] Result Comment: A. B one and Soft Tissue Received in formalin, labeled right foot are multiple irregular fragments of mccarthy, hard bone measuring 3 x 3 x 0.9 cm in aggregate. Sectioning reveals mccarthy, hard bone. No gross necrotic areas identified. Pet Crematory Worker sections are submitted in A1 following formic decalcification. KSZ January 01, 2025 10:57 AM Gross examination performed at [facility], [address] [place] [address] Performed By: #### 6 6121-5 ####[facility] [id number] [place] [address] [facility] LABCLIA [id number] [place] [address] [place] HISTORY PHYSICALon HISTORY PHYSICAL HNO ID: [id number] Author: ARY ROCHA APRN.BIOMATERIALS ENGINEER Service: ? Author Type: Nurse Practitioner Type: H&P Filed: 12/28/2024 10:56 Note Text: [facility] HISTORY AND PHYSICAL EXAMINATION SERVICE DATE: 12/28/2024 SERVICE TIME: 10:08 AM PRIMARY CARE PHYSICIAN: Monique Emmanuel CNP, BIOMATERIALS ENGINEER REASON FOR VISIT: Noel Paul is a [...] STOP-Bang Score: STOP-Bang Score: 0 (Awaiting CPAP) [id number] Score: Age: <65 Sex: female [id number] Score: ARISCAT Score: Age: <=50 Preoperative SpO2: [...] chart review and guidance on proceeding at [place]. Per Dr Goetz, patient may proceed as scheduled at [place] CONSULTS: Anesthesia Consult chart review The Following [...] 1 t (more content not included)... Normal [facility] CNOVon 12-12-2024 CNOV Office Visit (LOORRM ) NOEL PAUL ([id number]) 1990 F U[place] Date Time Provider Department 12/12/24 10:00 AM SEAN MATA LOORRM During your visit today, we recorded the following information about you: Sean Mata DPM 12/12/2024 10:46 AM Signed [facility] Department of Orthopedics [facility] Orthopedic Surgery Name: Noel Paul Date of [...] Current Outpatient Medications Medication Sig DEXCOM G7 TRADER 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 DEXCOM G7 SENSOR eduin [...] Prescriptions as of 12/12/2024 - DEXCOM G7 TRADER 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 - DEXCOM G7 SENSOR [...] 1 CA (more content not included)... 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 - DEXCOM G7 SENSOR [...] Status:Closed by CATHY SANTANA on 12/12/24 Normal [facility] XR FOOT 3V AP/LAT/OBL RTon 0 [...] unremarkable. IMPRESSION: No fracture or joint dislocation. Wallet Assembler: PSCB Transcribe Date/Time: Dec 12 2024 9:37A Dictated by : LUX WILLETT MD This examination was interpreted and the report reviewed and electronically signed by: LUC AVILES MD on Dec 12 2024 11:47AM EST [id number] Normal [facility] XR Foot - right AP and Later al and obliqueon 12-12-2024 IMPRESSION: No fracture or joint dislocation. Wallet Assembler: [facility] Transcribe Date/Time: Dec 12 2024 9:37A Dictated [...] tissues appear unremarkable. DIVISION OF RADIOLOGY Provider, [facility] - 12/12/2024 * * *Final Report* [...] IMPRESSION IMPRESSION: No fracture or joint dislocation. Wallet Assembler: HERNÁN Transcribe Date/Time: Dec 12 2024 9:37A Dictated by : LUX WILLETT MD This examination was interpreted and the report reviewed and electronically signed by: LUC AVILES MD on Dec 12 2024 11:47AM EST [facility] Radiology Study observation (narrative) [facility] XR Foot - right AP and Later al and obliqueOrdered By: Ccf Provider on 12-12-2024 [facility] 36on 12-04-2024 36 Spoke with patient and let her know that per Dr. Her she can bring the disc in and he will take a look at the images and let her know. [facility] 36on 12-03-2024 36 Patient would like t o know if she can get in earlier than her rescheduled appt since she had to cancel. Patient would like to drop off her MRI results sooner than her appt as well. Please advise at [phone] [facility] Telephoneon 12-03-2024 Telephone [id number] Noel Paul 1990 F Date Provider Department Center 12/03/2024 02425-EPRQPJTIMBO COOMBS MP ORTHO MPORTHO No family history on file Reason for Visit and Comments: Appointment [375] [facility] 36on 11-29-2024 36 LVM with patient yoni t she will need to bring disc in. Scheduled patient for Tuesday12/03/24 at 10:30 am [facility] 36 Patient would like t o know if she needs to make an appointment to bring in her MRI results or if you have received them? Jig And Fixture Builder Apprentice does not see them in the chart. Please advise at [phone] [facility] Office Visiton 11-26-2024 Follow-up visit [id number] Noel Paul 1990 F Date Provider Department Center 11/26/2024 264-ELATTAR, OSAMA MP ORTHO MPORTHO No family history on file Level of Service:70626 [place] OFFICE/OUTPATIENT NEW LOW MDM 30 MINUTES (GC) Reason for Visit and Comments: Pain [136] Normal [facility] 36on 11-23-2024 36 LVM to confirm appt Normal [facility] Surgical Pathology Reporton 09-12-2024 Surgical Pathology Report [facility] [address] [place] [address]- Surgical Pathology Report Collected Date/Time: 09/05/2024 08:32 EDT Pathologist: Joon LONG PhD, Benito Piedra Received Date/Time: 09/06/2024 07:35 EDT Pato Avelar DPM, DPM, Nicholas A 07 Surgical Pathology [...] DIAGNOSIS. Addition of clinical information only. Normal [facility] Comment on above: Performed By: #### 4 [id number] #### [facility] Laboratory [address] [place] [address] Surgical Pathology Reporton 09-11-2024 Surgical Pathology Report [facility] [address] [place] [address]- Surgical Pathology Report Collected Date/Time: 09/05/2024 08:32 EDT Pathologist: Joon LONG PhD, Benito Piedra Received Date/Time: 09/06/2024 07:35 EDT Brown DPM, Pato Avelar DPM, Pato Hudson Surgical Pathology [...] examination performed unless gross only specified. Normal [facility] Comment on above: Performed By: #### 4 [id number] #### [facility] [address] [place] [address] Basic Metabolic Panelon 04-28 Creatinine Clr Calc Pharmacy 161.75 Normal [facility] Comment on above: Result Comment: PERF ORMED BY: [place] [address] PATHOLOGIST AIR BREAKER OPERATOR SIMEON BIGGS M.D. Performed By: #### B MP #### [place] [address] [place] GFR/1.73 sq M.predicted MDRD (S/P/Bld) [Vol rate/Area] mL/min/{1.73_m2} Normal [facility] Comment on above: Performed By: #### B MP #### [address] [address] [facility] Calcium [Mass/volume] in Ser um or PlasmaOrdered By: Sean Ruano on 05-16-2024 Calcium [Mass/Vol] 8.8 mg/dL Normal 8.6-10.3 [facility] Comment on above: Performed By: #### B MP #### [address] [address] [place] Capillary blood glucose jaswinder urement by glucometer (mass/volume)Ordered By: Pato Avelar on 05-16-2024 Glucose [Mass/Vol] 106 mg/dL Normal [facility] Comment on above: Random Glucose Refer ence Range is dependent on time and content of last meal. Glucose of more than 200 mg/dL in a nonstressed, ambulatory subject supports the diagnosis of Diabetes Mellitus. Result Comment: [place] om Glucose Reference Range is dependent on time and content of last meal. Glucose of more than 200 mg/dL in a nonstressed, ambulatory subject supports the diagnosis of Diabetes Mellitus. Performed By: #### G BARAK #### Point of Care testing , Carbon dioxide, total [Moles /volume] in Serum or PlasmaOrdered By: Sean Ruano on 05-16-2024 CO2 [Moles/Vol] 27.3 mmol/L Normal 21.0-31.0 [facility] Comment on above: Performed By: #### B MP #### [facility] [address] Chloride [Moles/volume] in S nikkie or PlasmaOrdered By: Sean Ruano on 05-16-2024 Chloride [Moles/Vol] 105 mmol/L Normal 98-107 [facility] Comment on above: Performed By: #### B MP #### [facility] [address] Creatinine [Mass/volume] in Serum or PlasmaOrdered By: Sean Ruano on 05-16-2024 Creatinine [Mass/Vol] 0.66 mg/dL Normal 0.60-1.20 [facility] Comment on above: Performed By: #### B MP #### [facility] [address] [place] [address] [place] Glucose Poct Glucometerson 0 05-16-2024 Commemt1 Glu2: Cleaned Meter Normal [facility] Comment on above: Result Comment: PERF ORMED BY: [facility] [address] [facility] [place] [address] PATHOLOGIST AIR BREAKER OPERATOR SIMEON BIGGS M.D. Performed By: #### G BARAK #### Point of Care testing , Glucose [Mass/volume] in Ser um or PlasmaOrdered By: Sean Ruano on 05-16-2024 Glucose [Mass/Vol] 107 mg/dL High 70-100 [facility] Comment on above: ADA recommended refe rence rangeRandom Glucose Reference Range is dependent on time and content of last meal. Glucose of more than 200 mg/dL in a nonstressed, ambulatory subject supports the diagnosis of Diabetes Mellitus. Result Comment: [place] om Glucose Reference Range is dependent on time and content of last meal. Glucose of more than 200 mg/dL in a nonstressed, ambulatory subject supports the diagnosis of Diabetes Mellitus. ADA recommended reference range Performed By: #### B MP #### [facility] [address] [place] [address] HCG ( test) IA.rapi d Ql (U)Ordered By: Sean Ruano on 05-16-2024 HCG ( test) Ql (U) Negative [facility] HCG,Urineon 05-16-2024 Beta HCG ( test) Ql (U) Negative Normal [facility] Comment on above: Result Comment: PERF ORMED BY: [place] [address] PATHOLOGIST AIR BREAKER OPERATOR SIMEON BIGGS M.D. Performed By: #### U HCG #### [facility] [address] [place] [address] Jason 05-16-2024 L Specimen: [id number] Received: 05/16/24 Status: KESHA Tinsley Num: [id number] Spec Type: Surgical Subm Dr: Pato Avelar DPM Tissues: A Bone Fragments - Other than Path Fracture (ACCESSORY BONE LT FOOT) Procedures: HE, Gross/Micro L3, Decalcification Age/ Patient Sex Location Account Attending Physician Noel Paul 33/F [place] [id number] Pato Avelar DPM SPEC NUM: [id number] RECD: 05/16/24 STATUS: KESHA TINSLEY NUM: [id number] BRUNO: 05/16/24- SUBM DR: Pato Avelar DPM ENTERED: 05/16/[address]: SPEC TYPE: Surgical DEPT: S ORDERED: [...] areas of necrosis or cysts are present. Pet Crematory Worker sections are submitted following decalcification in A1. CPT Codes 69241, 94362 -------- -------- Specimen: [id number] Received: 05/16/24 Status: KESHA Tinsley Num: [id number] Spec Type: Surgical Subm Dr: Pato Avelar, SHITAL Tissues: A Bone Fragments - Other than Path Fracture (ACCESSORY BONE LT FOOT) Procedures: HE, Gross/Micro L3, Decalcification -------- Patient: Noel Paul [id number] (Continued) -------- Signed (signature on file) Tabatha Dupree MD 05/19/24 1640 Normal [facility] No Panel InformationOrdered By: Pato Avelar on 05-16-2024 Bedside Glucose Comment Glu2: cleaned meter [facility] No Panel InformationOrdered By: Sean Ruano on 05-16-2024 Estimated GFR (CKD-EPI) > 60.0 mL/Min [facility] Creatinine Clearance (Chem 161.75 [facility] Potassium [Moles/volume] in Serum or PlasmaOrdered By: Sean uRano on 05-16-2024 Potassium [Moles/Vol] 3.8 mmol/L Normal 3.5-5.1 [facility] Comment on above: Performed By: #### B MP #### [facility] [address] [place] [address] Serum or plasma anion gap de terminationOrdered By: Sean Ruano on 05-16-2024 Anion gap [Moles/Vol] 9.5 mmol/L Normal 6.0-15.0 [facility] Comment on above: Performed By: #### B MP #### [facility] [address] [place] [address] [place] Sodium [Moles/volume] in Ser um or PlasmaOrdered By: Sean Ruano on 05-16-2024 Sodium [Moles/Vol] 138 mmol/L Normal 136-145 [facility] Comment on above: Performed By: #### B MP #### [facility] [address] [place] [address] Urea nitrogen [Mass/volume] in Serum or PlasmaOrdered By: Sean Ruano on 05-16-2024 Urea nitrogen [Mass/Vol] 17 mg/dL Normal 7-25 [facility] Comment on above: Performed By: #### B MP #### [facility] [address] [place] [address] XR foot LT 2Von 05-16-2024 XR foot LT 2V [facility] Main [place] [address] [place] [address] XRay Report Signed Patient: Noel Paul MR#: [id number] : 1990 Acct:[id number] Age/Sex: 33 / F ADM Date: 05/16/24 Loc: [place] Room: Type: [facility] Attending Dr: Pato Avelar DPM Copies to: [...] Leisa Adames M.D.05/16/2024 3:20 PM Dictation Location: [place] [address] Transcribed By: [facility] 05/16/24 1520 Dictated By: Leisa Adames MD 05/16/24 1515 Signed By: 05/16/24 1520 Normal [facility] CBC w/ Auto Diffon 4 Basophils/100 WBC (Bld) 0.5 % Normal 0.0-2.0 [facility] Comment on above: Performed By: #### 2 [id number] #### [facility] [address] [place] [address] Basophils/Leukocytes Auto (Bld) [Pure # fraction] 0.1 E9/L Normal 0.0-0.2 [facility] Comment on above: Performed By: #### 2 [id number] #### [facility] [address] [place] [address] Eosinophils (Bld) [#/Vol] 0.3 E9/L Normal 0.0-0.5 [facility] Comment on above: Performed By: #### 2 076982 #### [facility] [address] [place] [address] Eosinophils/100 WBC (Bld) 2.9 % Normal 0.0-8.0 [facility] Comment on above: Performed By: #### 2 424585 #### [facility] [address] [place] [address] Erythrocyte distribution width (RBC) [Ratio] 15.6 % High 10.9-14.2 [facility] Comment on above: Performed By: #### 2 613053 #### [facility] [address] [place] [address] Hematocrit (Bld) [Volume fraction] 39.9 % Normal 34.0-46.0 [facility] Comment on above: Performed By: #### 2 860192 #### [facility] [address] [place] [address] Hemoglobin (Bld) [Mass/Vol] 12.8 g/dL Normal 12.0-16.0 [facility] Comment on above: Performed By: #### 2 144645 #### [facility] [address] [place] [address] Lymphocytes (Bld) [#/Vol] 2.3 E9/L Normal 1.0-4.0 [facility] Comment on above: Performed By: #### 2 431996 #### [facility] [address] [place] [address] Lymphocytes/100 WBC (Bld) 20.9 % Normal 14.0-50.0 [facility] Comment on above: Performed By: #### 2 046918 #### [facility] [address] [place] [address] MCH (RBC) [Entitic mass] 25.4 pg Low 27.0-34.0 [facility] Comment on above: Performed By: #### 2 930598 #### [facility] [address] [place] [address] MCHC (RBC) [Mass/Vol] 32.2 g/dL Normal 31.4-36.0 [facility] Comment on above: Performed By: #### 2 390189 #### [facility] [address] [place] [address] MCV (RBC) [Entitic vol] 79.0 fL Low 80.0-100.0 [facility] Comment on above: Performed By: #### 2 641278 #### [facility] [address] [place] [address] Monocytes (Bld) [#/Vol] 0.7 E9/L Normal 0.2-1.0 [facility] Comment on above: Performed By: #### 2 122763 #### [facility] [address] [place] [address] Neutrophils (Bld) [#/Vol] 7.7 E9/L High 2.0-7.5 [facility] Comment on above: Performed By: #### 2 479398 #### [facility] [address] [place] [address] Neutrophils/100 WBC (Bld) 69.3 % Normal 36.0-75.0 [facility] Comment on above: Performed By: #### 2 834568 #### [facility] [address] [place] [address] Platelet mean volume (Bld) [Entitic vol] 8.3 fL Normal 6.4-10.8 [facility] Comment on above: Performed By: #### 2 850649 #### [facility] [address] [place] [address] Platelets (Bld) [#/Vol] 346.0 E9/L Normal 150.0-500.0 [facility] Comment on above: Performed By: #### 2 739166 #### [facility] [address] [place] [address] RBC (Bld) [#/Vol] 5.1 E12/L Normal 4.3-5.9 [facility] Comment on above: Performed By: #### 2 117749 #### [facility] [address] [place] [address] WBC corrected for nucl RBC Auto (Bld) [#/Vol] 11.1 E9/L High 4.0-11.0 [facility] Comment on above: Performed By: #### 2 981774 #### [facility] [address] [place] [address] Consent for Treatmenton 03-29 Consent for Treatment [id number] .[id number] Normal [facility] HEMATOLOGYOrdered By: SYSTEM SYSTEM on [...] Remisol Heme Physician Orderon 04-18-2024 Physician Order [id number] .00TIFF Normal [facility] XR shoulder RT min 2V*on XR shoulder RT min 2V* [facility] Main [address] [address] XRay Report Signed Patient: Noel Paul MR#: [id number] : 1990 Acct:[id number] Age/Sex: 33 / F ADM Date: 02/27/24 Loc: [facility] Room: Type: [facility] Attending Dr: Monique SANDOVAL Copies to: LORI [...] Leisa Adames M.D.02/27/2024 6:14 PM Dictation Location: [place] [address] Transcribed By: [facility] 02/27/241813 Dictated By: Leisa Adames MD 02/27/241812 Signed By: 02/27/241813 Normal [facility] GLYCOHEMOGLOBIN A1Con 2022 ADA RECOMMENDATION SEE BELOW Normal [facility] Comment on above: Result Comment: ADA RECOMMENDED LIMIT 4.0 - 6.0 ADA THERAPEUTIC TARGET < 7.0 ACTION SUGGESTED > 7.0 Performed By: #### A 1C #### [facility] [address] [place] [address] Dr. Benito Dupree Glucose [Mass/Vol] 105 mg/dL Normal [facility] Comment on above: Performed By: #### A 1C #### [facility] [address] [place] [address] Dr. Benito Dupree HbA1c (Bld) [Mass fraction] 5.3 % Normal 4.5-6.2 [facility] Comment on above: Performed By: #### A 1C #### [facility] [address] [place] [address] Dr. Benito Dupree Covid-19 PCR (CVDTB)on SARS-CoV-2 (COVID-19) RNA MUKUND+probe Ql (Unsp spec) Not detected Normal NOT DETECTED [facility] Comment on above: Result Comment: This test is not yet approved or cleared by the [place] FDA. When there are no FDA-approved or cleared tests available, and other criteria are met, FDA can make tests available under an emergency access mechanism called an Emergency Use Authorization (EUA). The EUA for this test is supported by the Sign Board Erector of Health and Human Service's (HHS's) declaration [...] SARS-CoV-2. Performed By: #### C VDTBH #### [facility] [address] [place] [address] Dr. Benito Dupree INFLUENZA A AND B AGon 01-05 [facility] SEE BELOW Normal [facility] Comment on above: Result Comment: Nega tive for Flu A protein angiten. Infection due to Flu A cannot be ruled out. Flu A angiten in the sample may be below the detection limit of the test. Performed By: #### I NFLUAB #### [facility] [address] [place] [address] Dr. Benito Dupree INFLUBNEG SEE BELOW Normal [facility] Comment on above: Result Comment: Nega tive for Flu B protein antigen. Infection due to Flu B cannot be ruled out. Flu B antigen in the sample may be below the detection limit of the test. Performed By: #### I NFLUAB #### [facility] [address] [place] [address] Dr. Benito Dupree INFLUENZA A AG Negative Normal NEGATIVE SEE COMMENT [facility] Comment on above: Performed By: #### I NFLUAB #### [facility] [address] [address] [address] Benito Dupree INFLUENZA B AG Negative Normal NEGATIVE SEE COMMENT [facility] Comment on above: Performed By: #### I NFLUAB #### [facility] [address] [place] [address] Dr. Benito Dupree GLYCOHEMOGLOBIN A1Con 2021 ADA RECOMMENDATION SEE BELOW Normal [facility] Comment on above: Result Comment: ADA RECOMMENDED LIMIT 4.0 - 6.0 ADA THERAPEUTIC TARGET < 7.0 ACTION SUGGESTED > 7.0 Performed By: #### A 1C #### [facility] [address] [place] [address] Dr. Benito Dupree Glucose [Mass/Vol] 143 mg/dL Normal [facility] Comment on above: Performed By: #### A 1C #### [facility] [address] [place] [address] Dr. Benito Dupree HbA1c (Bld) [Mass fraction] 6.6 % Critically high 4.5-6.2 [facility] Comment on above: Performed By: #### A 1C #### [facility] [address] [place] [address] Dr. Benito Dupree LIPID PROFILEon 11-15-2022 CHOL-HDL RATIO NORM SEE BELOW Normal [facility] Comment on above: Result Comment: 3.3 - 4.4 LOW RISK 4.4 - 7.1 AVERAGE RISK 7.1 - 11.0 MODERATE RISK >11.0 HIGH RISK Performed By: #### I NFLUAB #### [facility] [address] [place] [address] Dr. Benito Dupree Cholesterol [Mass/Vol] 154 mg/dL Normal <=200 [facility] Comment on above: Performed By: #### I NFLUAB #### [facility] [address] [place] [address] Dr. Benito Dupree Cholesterol in HDL [Mass/Vol] 29 mg/dL Critically low 40-60 [facility] Comment on above: Performed By: #### I NFLUAB #### [facility] [address] [address] [address] Benito Dupree Cholesterol in LDL [Mass/Vol] 98.2 mg/dL Normal [facility] Comment on above: Performed By: #### I NFLUAB #### [facility] [address] [address] [address] Benito Dupree Cholesterol.total/Lisandra sterol in HDL [Mass ratio] 5.3 {ratio} Normal [facility] Comment on above: Performed By: #### I NFLUAB #### [facility] [address] [place] [address] Dr. Benito Dupree HDL NORMAL > or = 60 mg/dl - LO W CARDIOVASCULAR RISK <40 mg/dl - HIGH CARDIOVASCULAR RISK Normal [facility] Comment on above: Performed By: #### I NFLUAB #### [facility] [address] [place] [address] Dr. Benito Dupree LDL CALC NORMAL SEE BELOW Normal [facility] Comment on above: Result Comment: <100 mg/dl OPTIMAL 100 - 129 mg/dl NEAR OR ABOVE OPTIMAL 130 - 159 mg/dl BORDERLINE HIGH 160 - 189 mg/dl HIGH >190 mg/dl VERY HIGH Performed By: #### I NFLUAB #### [facility] [address] [place] [address] Dr. Benito Dupree Triglyceride [Mass/Vol] 134 mg/dL Normal <=150 [facility] Comment on above: Performed By: #### I NFLUAB #### [facility] [address] [address] [address] Benito Dupree VLDL CALC 26.8 mg/dL Normal [facility] Comment on above: Performed By: #### I NFLUAB #### [facility] [address] [place] [address] Dr. Benito Dupree INSULINon 08-19-2022 Insulin 24.3 uIU/mL Normal 2.6-24.9 [facility] Comment on above: Performed By: #### I NFLUAB #### [facility] [address] [place] [address] Dr. Benito Dupree T4, T3U, FTI LABCORPon 08-19 Free Thyroxine Index 2.6 Normal 1.2-4.9 [facility] Comment on above: Performed By: #### T HYLC #### [facility] [address] [place] [address] Dr. Benito Dupree T3 Uptake 29 % Normal 24-39 [facility] Comment on above: Performed By: #### T HYLC #### [facility] [address] [place] [address] Dr. Benito Dupree T4 [Mass/Vol] 8.8 ug/dL Normal 4.5-12.0 [facility] Comment on above: Performed By: #### T HYLC #### [facility] [address] [place] [address] Dr. Benito Dupree CBC AUTO DIFFon 08-18-2022 BASO # 0.1 103/ul Normal 0.0-0.1 [facility] Comment on above: Performed By: #### I NFLUAB #### [facility] [address] [place] [address] Dr. Benito Dupree Basophils/100 WBC (Bld) 0.8 % Normal 0.2-2.0 [facility] Comment on above: Performed By: #### I NFLUAB #### [facility] [address] [place] [address] Dr. Benito Dupree EO # 0.3 103/ul Normal 0.0-0.7 [facility] Comment on above: Performed By: #### I NFLUAB #### [facility] [address] [place] [address] Dr. Benito Dupree Eosinophils/100 WBC (Bld) 2.8 % Normal 0.9-7.0 [facility] Comment on above: Performed By: #### I NFLUAB #### [facility] [address] [place] [address] Dr. Benito Dupree Erythrocyte distribution width (RBC) [Ratio] 15.4 % Critically high 11.0-15.0 [facility] Comment on above: Performed By: #### I NFLUAB #### [facility] [address] [place] [address] Dr. Benito Dupree Hematocrit (Bld) [Volume fraction] 43.7 % Normal 36.0-48.0 [facility] Comment on above: Performed By: #### I NFLUAB #### [facility] [address] [place] [address] Dr. Benito Dupree Hemoglobin (Bld) [Mass/Vol] 14.2 g/dL Normal 12.0-16.0 [facility] Comment on above: Performed By: #### I NFLUAB #### [facility] [address] [place] [address] Dr. Benito Dupree IG # 0.08 10e3/ul Critically high 0.00-0.03 [facility] Comment on above: Performed By: #### I NFLUAB #### [facility] [address] [place] [address] Dr. Benito Dupree IG % 0.9 % Critically high 0.0-0.5 [facility] Comment on above: Performed By: #### I NFLUAB #### [facility] [address] [place] [address] Dr. Benito Dupree LYMPH # 2.3 103/ul Normal 1.2-3.8 [facility] Comment on above: Performed By: #### I NFLUAB #### [facility] [address] [place] [address] Dr. Benito Dupree Lymphocytes/100 WBC (Bld) 24.3 % Normal 20.5-60.0 [facility] Comment on above: Performed By: #### I NFLUAB #### [facility] [address] [place] [address] Dr. Benito Dupree MANUAL DIFF REQ NO Normal [facility] Comment on above: Performed By: #### I NFLUAB #### [facility] [address] [place] [address] Dr. Benito Dupree MCH (RBC) [Entitic mass] 26.1 pg Critically low 26.7-34.0 [facility] Comment on above: Performed By: #### I NFLUAB #### [facility] [address] [address] [address] Benito Dupree MCHC (RBC) [Mass/Vol] 32.5 g/dL Normal 29.9-35.2 [facility] Comment on above: Performed By: #### I NFLUAB #### [facility] [address] [place] [address] Dr. Benito Dupree MCV (RBC) [Entitic vol] 80.2 fL Critically low 81.0-99. 0 [facility] Comment on above: Performed By: #### I NFLUAB #### [facility] [address] [place] [address] Dr. Benito Dupree MONO # 0.5 103/ul Normal 0.3-0.8 [facility] Comment on above: Performed By: #### I NFLUAB #### [facility] [address] [place] [address] Dr. Benito Dupree Monocytes/100 WBC (Bld) 5.2 % Normal 1.7-12.0 [facility] Comment on above: Performed By: #### I NFLUAB #### [facility] [address] [place] [address] Dr. Benito Dupree NEUT # 6.1 103/ul Normal 1.4-6.5 [facility] Comment on above: Performed By: #### I NFLUAB #### [facility] [address] [place] [address] Dr. Benito Dupree Neutrophils/100 WBC (Bld) 66.0 % Normal 43.0-75.0 [facility] Comment on above: Performed By: #### I NFLUAB #### [facility] [address] [place] [address] Dr. Benito Dupree Platelet mean volume (Bld) [Entitic vol] 9.9 fL Normal 9.5-13.5 [facility] Comment on above: Performed By: #### I NFLUAB #### [facility] [address] [place] [address] Dr. Benito Dupree PLT 291 103/ul Normal 150-450 [facility] Comment on above: Performed By: #### I NFLUAB #### [facility] [address] [address] [address] Benito Dupree RBC 5.45 106/ul Critically high 4.20-5.40 [facility] Comment on above: Performed By: #### I NFLUAB #### [facility] [address] [address] [address] Benito Dupree WBC 9.3 103/ul Normal 4.0-11.0 [facility] Comment on above: Performed By: #### I NFLUAB #### [facility] [address] [address] [address] Benito Dupree DIRECT LDLon 08-18-2022 Cholesterol in LDL [Mass/Vol] 50 mg/dL Normal [facility] Comment on above: Performed By: #### T HYLC #### [facility] [address] [place] [address] Dr. Benito Dupree DLDL NORMAL SEE BELOW Normal [facility] Comment on above: Result Comment: <100 mg/dl OPTIMAL 100 - 129 mg/dl NEAR OR ABOVE OPTIMAL 130 - 159 mg/dl BORDERLINE HIGH 160 - 189 mg/dl HIGH >190 mg/dl VERY HIGH Performed By: #### T HYLC #### [facility] [address] [place] [address] Dr. Benito Dupree GLYCOHEMOGLOBIN A1Con 2021 ADA RECOMMENDATION SEE BELOW Normal [facility] Comment on above: Result Comment: ADA RECOMMENDED LIMIT 4.0 - 6.0 ADA THERAPEUTIC TARGET < 7.0 ACTION SUGGESTED > 7.0 Performed By: #### A 1C #### [facility] [address] [address] [address] Benito Dupree Glucose [Mass/Vol] 332 mg/dL Normal [facility] Comment on above: Performed By: #### A 1C #### [facility] [address] [place] [address] Dr. Benito Dupree HbA1c (Bld) [Mass fraction] 13.2 % Critically high 4.5-6.2 [facility] Comment on above: Performed By: #### A 1C #### [facility] [address] [address] [address] Benito Dupree IRONon 08-18-2022 Iron [Mass/Vol] 53.0 ug/dL Normal 50.0-170.0 [facility] Comment on above: Performed By: #### I NFLUAB #### [facility] [address] [address] [address] Benito Dupree LIPID PROFILEon 08-18-2022 CHOL-HDL RATIO NORM SEE BELOW Normal [facility] Comment on above: Result Comment: 3.3 - 4.4 LOW RISK 4.4 - 7.1 AVERAGE RISK 7.1 - 11.0 MODERATE RISK >11.0 HIGH RISK Performed By: #### T HYLC #### [facility] [address] [place] [address] Dr. Benito Dupree Cholesterol [Mass/Vol] 260 mg/dL Critically high <=200 [facility] Comment on above: Performed By: #### T HYLC #### [facility] [address] [place] [address] Dr. Benito Dupree Cholesterol in HDL [Mass/Vol] 23 mg/dL Critically low 40-60 [facility] Comment on above: Performed By: #### T HYLC #### [facility] [address] [place] [address] Dr. Benito Dupree Cholesterol.total/Lisandra sterol in HDL [Mass ratio] 11.3 {ratio} Normal [facility] Comment on above: Performed By: #### T HYLC #### [facility] [address] [address] [address] Benito Dupree HDL NORMAL > or = 60 mg/dl - LO W CARDIOVASCULAR RISK <40 mg/dl - HIGH CARDIOVASCULAR RISK Normal [facility] Comment on above: Performed By: #### T HYLC #### [facility] [address] [place] [address] Dr. Benito Dupree Triglyceride [Mass/Vol] 1711 mg/dL Critically high <=150 [facility] Comment on above: Performed By: #### T HYLC #### [facility] [address] [place] [address] Dr. Benito Dupree VLDL CALC 342.2 mg/dL Normal [facility] Comment on above: Performed By: #### T HYLC #### [facility] [address] [place] [address] Dr. Benito Dupree PROF 14(COMP METB)on 022 Albumin [Mass/Vol] 3.2 g/dL Critically low 3.4-5.[address] [facility] Comment on above: Performed By: #### T HYLC #### [facility] [address] [place] [address] Dr. Benito Dupree Albumin/Globulin [Mass ratio] 0.7 {ratio} Normal [facility] Comment on above: Performed By: #### T HYLC #### [facility] [address] [place] [address] Dr. Benito Dupree ALP [Catalytic activity/Vol] 92 U/L Normal 46-116 [facility] Comment on above: Performed By: #### T HYLC #### [facility] [address] [place] [address] Dr. Benito Dupree ALT [Catalytic activity/Vol] 41 U/L Normal 14-59 [facility] Comment on above: Performed By: #### T HYLC #### [facility] [address] [place] [address] Dr. Benito Dupree Anion gap [Moles/Vol] 14.1 mmol/L Normal [facility] Comment on above: Performed By: #### T HYLC #### [facility] [address] [place] [address] Dr. Benito Dupree AST [Catalytic activity/Vol] 16 U/L Normal 15-37 [facility] Comment on above: Performed By: #### T HYLC #### [facility] [address] [place] [address] Dr. Benito Dupree Bilirubin [Mass/Vol] 0.9 mg/dL Normal 0.2-1.0 [facility] Comment on above: Performed By: #### T HYLC #### [facility] [address] [place] [address] Dr. Benito Dupree Calcium [Mass/Vol] 9.1 mg/dL Normal 8.5-10.1 [facility] Comment on above: Performed By: #### T HYLC #### [facility] [address] [address] [address] Benito Dupree Chloride [Moles/Vol] 97 mmol/L Critically low 98-107 [facility] Comment on above: Performed By: #### T HYLC #### [facility] [address] [address] [address] Benito Dupree CO2 [Moles/Vol] 24.9 mmol/L Normal 21.0-32.0 [facility] Comment on above: Performed By: #### T HYLC #### [facility] [address] [place] [address] Dr. Benito Dupree Creatinine [Mass/Vol] 0.67 mg/dL Normal 0.55-1.02 [facility] Comment on above: Performed By: #### T HYLC #### [facility] [address] [place] [address] Dr. Benito Dupree EGFR-AF GIBRALTARIAN >60 Normal >=60 [facility] Comment on above: Performed By: #### T HYLC #### [facility] [address] [place] [address] Dr. Benito Dupree EGFR-NON AF GIBRALTARIAN >60 Normal >=60 [facility] Comment on above: Performed By: #### T HYLC #### [facility] [address] [place] [address] Dr. Benito Dupree Globulin (S) [Mass/Vol] 4.6 g/dL Normal [facility] Comment on above: Performed By: #### T HYLC #### [facility] [address] [address] [address] Benito Dupree Glucose [Mass/Vol] 402 mg/dL Critically high 74-106 [facility] Comment on above: Performed By: #### T HYLC #### [facility] [address] [place] [address] Dr. Benito Dupree Potassium [Moles/Vol] 4.0 mmol/L Normal 3.5-5.1 [facility] Comment on above: Performed By: #### T HYLC #### [facility] [address] [place] [address] Dr. Benito Dupree Protein [Mass/Vol] 7.8 g/dL Normal 6.4-8.2 [facility] Comment on above: Performed By: #### T HYLC #### [facility] [address] [place] [address] Dr. Benito Dupree Sodium [Moles/Vol] 132 mmol/L Critically low 136-[address] [facility] Comment on above: Performed By: #### T HYLC #### [facility] [address] [place] [address] Dr. eBnito Dupree Urea nitrogen [Mass/Vol] 10.0 mg/dL Normal 7.0-18.0 [facility] Comment on above: Performed By: #### T HYLC #### [facility] [address] [place] [address] Dr. Benito Dupree Urea nitrogen/Creatinine [Mass ratio] 14.9 mg/mg Normal [facility] Comment on above: Performed By: #### T HYLC #### [facility] [address] [place] [address] Dr. Benito Dupree TSHon 08-18-2022 TSH 3.676 uIU/mL Normal 0.358-3.740 [facility] Comment on above: Performed By: #### T HYLC #### [facility] [address] [place] [address] Dr. Benito Dupree VITAMIN D 25 OHon 08-18-2022 VIT D 25-OH 13.9 ng/mL Normal [facility] Comment on above: Performed By: #### I NFLUAB #### [facility] [address] [place] [address] Dr. Benito Dupree VIT D RANGES SEE BELOW Normal [facility] Comment on above: Result Comment: <20 ng/mL Vit D deficient 20 - <30 ng/mL Vit D insufficient 30 - 100 ng/mL Vit D sufficient >100 ng/mL Potential Toxicity Performed By: #### I NFLUAB #### [facility] [address] [place] [address] Dr. Benito Dupree AMYLASEon 06-01-2022 Amylase [Catalytic activity/Vol] 29 U/L Normal 25-115 [facility] Comment on above: Performed By: #### I NFLUAB #### [facility] [address] [place] [address] Dr. Benito Dupree CBC AUTO DIFFon 06-01-2022 BASO # 0.1 103/ul Normal 0.0-0.1 [facility] Comment on above: Performed By: #### I NFLUAB #### [facility] [address] [place] [address] Dr. Benito Dupree Basophils/100 WBC (Bld) 0.5 % Normal 0.2-2.0 [facility] Comment on above: Performed By: #### I NFLUAB #### [facility] [address] [place] [address] Dr. Benito Dupree EO # 0.3 103/ul Normal 0.0-0.7 [facility] Comment on above: Performed By: #### I NFLUAB #### [facility] [address] [place] [address] Dr. Benito Dupree Eosinophils/100 WBC (Bld) 2.0 % Normal 0.9-7.0 [facility] Comment on above: Performed By: #### I NFLUAB #### [facility] [address] [place] [address] Dr. Benito Dupree Erythrocyte distribution width (RBC) [Ratio] 15.3 % Critically high 11.0-15.0 [facility] Comment on above: Performed By: #### I NFLUAB #### [facility] [address] [place] [address] Dr. Benito Dupree Hematocrit (Bld) [Volume fraction] 41.5 % Normal 36.0-48.0 [facility] Comment on above: Performed By: #### I NFLUAB #### [facility] [address] [place] [address] Dr. Benito Dupree Hemoglobin (Bld) [Mass/Vol] 12.7 g/dL Normal 12.0-16.0 [facility] Comment on above: Performed By: #### I NFLUAB #### [facility] [address] [place] [address] Dr. Benito Dupree IG # 0.06 10e3/ul Critically high 0.00-0.03 [facility] Comment on above: Performed By: #### I NFLUAB #### [facility] [address] [place] [address] Dr. Benito Dupree IG % 0.4 % Normal 0.0-0.5 [facility] Comment on above: Performed By: #### I NFLUAB #### [facility] [address] [place] [address] Dr. Benito Dupree LYMPH # 1.9 103/ul Normal 1.2-3.8 [facility] Comment on above: Performed By: #### I NFLUAB #### [facility] [address] [place] [address] Dr. Benito Dupree Lymphocytes/100 WBC (Bld) 13.9 % Critically low 20.5-60.0 [facility] Comment on above: Performed By: #### I NFLUAB #### [facility] [address] [place] [address] Dr. Benito Dupree MANUAL DIFF REQ NO Normal [facility] Comment on above: Performed By: #### I NFLUAB #### [facility] [address] [place] [address] Dr. Benito Dupree MCH (RBC) [Entitic mass] 24.7 pg Critically low 26.7-34.0 [facility] Comment on above: Performed By: #### I NFLUAB #### [facility] [address] [place] [address] Dr. Benito Dupree MCHC (RBC) [Mass/Vol] 30.6 g/dL Normal 29.9-35.2 [facility] Comment on above: Performed By: #### I NFLUAB #### [facility] [address] [place] [address] Dr. Benito Dupree MCV (RBC) [Entitic vol] 80.6 fL Critically low 81.0-99. 0 [facility] Comment on above: Performed By: #### I NFLUAB #### [facility] [address] [place] [address] Dr. Benito Dupree MONO # 0.5 103/ul Normal 0.3-0.8 [facility] Comment on above: Performed By: #### I NFLUAB #### [facility] [address] [place] [address] Dr. Benito Dupree Monocytes/100 WBC (Bld) 4.0 % Normal 1.7-12.0 [facility] Comment on above: Performed By: #### I NFLUAB #### [facility] [address] [place] [address] Dr. Benito Dpuree NEUT # 10.6 103/ul Critically high 1.4-6.5 [facility] Comment on above: Performed By: #### I NFLUAB #### [facility] [address] [place] [address] Dr. Benito Dupree Neutrophils/100 WBC (Bld) 79.2 % Critically high 43.0-75.0 [facility] Comment on above: Performed By: #### I NFLUAB #### [facility] [address] [place] [address] Dr. Benito Dupree Platelet mean volume (Bld) [Entitic vol] 9.3 fL Critically low 9.5-13.5 [facility] Comment on above: Performed By: #### I NFLUAB #### [facility] [address] [place] [address] Dr. Benito Dupree PLT 391 103/ul Normal 150-450 [facility] Comment on above: Performed By: #### I NFLUAB #### [facility] [address] [place] [address] Dr. Benito Dupree RBC 5.15 106/ul Normal 4.20-5.40 [facility] Comment on above: Performed By: #### I NFLUAB #### [facility] [address] [place] [address] Dr. Benito Dupree WBC 13.4 103/ul Critically high 4.0-11.0 [facility] Comment on above: Performed By: #### I NFLUAB #### [facility] [address] [address] ABD/PELV W CONon [...] WESTLEY JHA Date: 2022-06-01 14:59 Normal [facility] ER URINE PROFILEon 2 Bilirubin Ql (U) Negative Normal NEGATIVE [facility] Comment on above: Performed By: #### U MICRO, ERUR #### [facility] [address] [address] [address] Benito Dupree Clarity (U) SL CLOUDY Abnormal CLEAR [facility] Comment on above: Performed By: #### U MICRO, ERUR #### [facility] [address] [address] [address] Benito Dupree Color (U) YELLOW Normal YELLOW [facility] Comment on above: Performed By: #### U MICRO, ERUR #### [facility] [address] [address] [address] Benito BERG A micrscopic examination will be performed if indicated. Normal [facility] Comment on above: Performed By: #### U MICRO, ERUR #### [facility] [address] [address] [address] Benito Dupree Glucose Ql (U) Negative Normal NEGATIVE [facility] Comment on above: Performed By: #### U MICRO, ERUR #### [facility] [address] [place] [address] Dr. Benito Dupree Hemoglobin Ql (U) LARGE Abnormal NEGATIVE [facility] Comment on above: Performed By: #### U MICRO, ERUR #### [facility] [address] [place] [address] Dr. Benito Dupree Ketones Ql (U) Negative Normal NEGATIVE [facility] Comment on above: Performed By: #### U MICRO, ERUR #### [facility] [address] [place] [address] Dr. Benito Dupree LEUKOCYTES Negative Normal NEGATIVE [facility] Comment on above: Performed By: #### U MICRO, ERUR #### [facility] [address] [place] [address] Dr. Benito Dupree Nitrite Ql (U) Negative Normal NEGATIVE [facility] Comment on above: Performed By: #### U MICRO, ERUR #### [facility] [address] [address] [address] Benito Dupree pH (U) 5.5 [pH] Normal 5-9 [facility] Comment on above: Performed By: #### U MICRO, ERUR #### [facility] [address] [place] [address] Dr. Benito Dupree SPEC GRAVITY 1.010 Normal 1.005-<=1.0 25 [facility] Comment on above: Performed By: #### U MICRO, ERUR #### [facility] [address] [place] [address] Dr. Benito Dupree UA PROTEIN TRACE Normal NEGATIVE/ TRACE [facility] Comment on above: Performed By: #### U MICRO, ERUR #### [facility] [address] [place] [address] Dr. Benito Dupree UR MICRO IND INDICATED Normal [facility] Comment on above: Performed By: #### U MICRO, ERUR #### [facility] [address] [place] [address] Dr. Benito Dupree Urobilinogen Qn (U) 1.0 {Tuyet'U}/dL Normal 0.2 - 1. 0 [facility] Comment on above: Performed By: #### U MICRO, ERUR #### [facility] [address] [place] [address] Dr. Benito Dupree LACTATE/LACTIC ACIDon 2021 Lactate [Moles/Vol] 1.1 mmol/L Normal 0.4-1.9 [facility] Comment on above: Performed By: #### L ACT #### [facility] [address] [place] [address] Dr. Benito Dupree LIPASEon 06-01-2022 Lipase [Catalytic activity/Vol] 111.0 U/L Normal 73.0-393.0 [facility] Comment on above: Performed By: #### I NFLUAB #### [facility] [address] [place] [address] Dr. Benito Dupree PREG HCG QUALon 06-01-2022 , QUAL Negative Normal NEGATIVE [facility] Comment on above: Performed By: #### P REG #### [facility] [address] [place] [address] Dr. Benito Dupree PROF 14(COMP METB)on 022 Albumin [Mass/Vol] 3.6 g/dL Normal 3.4-5.0 [facility] Comment on above: Performed By: #### I NFLUAB #### [facility] [address] [place] [address] Dr. Benito Dupree Albumin/Globulin [Mass ratio] 0.7 {ratio} Normal [facility] Comment on above: Performed By: #### I NFLUAB #### [facility] [address] [address] [address] Benito Dupree ALP [Catalytic activity/Vol] 90 U/L Normal 46-116 [facility] Comment on above: Performed By: #### I NFLUAB #### [facility] [address] [address] [address] Benito Dupree ALT [Catalytic activity/Vol] 39 U/L Normal 14-59 [facility] Comment on above: Performed By: #### I NFLUAB #### [facility] [address] [address] [address] Benito Dupree Anion gap [Moles/Vol] 13.0 mmol/L Normal [facility] Comment on above: Performed By: #### I NFLUAB #### [facility] [address] [address] [address] Benito Dupree AST [Catalytic activity/Vol] 25 U/L Normal 15-37 [facility] Comment on above: Performed By: #### I NFLUAB #### [facility] [address] [address] [address] Benito Dupree Bilirubin [Mass/Vol] 1.1 mg/dL Critically high 0.2-1.0 [facility] Comment on above: Performed By: #### I NFLUAB #### [facility] [address] [address] [address] Benito Dupree Calcium [Mass/Vol] 9.4 mg/dL Normal 8.5-10.1 [facility] Comment on above: Performed By: #### I NFLUAB #### [facility] [address] [address] [address] Benito Dupree Chloride [Moles/Vol] 99 mmol/L Normal 98-107 [facility] Comment on above: Performed By: #### I NFLUAB #### [facility] [address] [address] [address] Benito Dupree CO2 [Moles/Vol] 27.3 mmol/L Normal 21.0-32.0 [facility] Comment on above: Performed By: #### I NFLUAB #### [facility] [address] [address] [address] Benito Dupree Creatinine [Mass/Vol] 0.87 mg/dL Normal 0.55-1.02 [facility] Comment on above: Performed By: #### I NFLUAB #### [facility] [address] [address] [address] Benito Dupree EGFR-AF GIBRALTARIAN >60 Normal >=60 [facility] Comment on above: Performed By: #### I NFLUAB #### [facility] [address] [address] [address] Benito Dupree EGFR-NON AF GIBRALTARIAN >60 Normal >=60 [facility] Comment on above: Performed By: #### I NFLUAB #### [facility] [address] [address] [address] Benito Dupree Globulin (S) [Mass/Vol] 4.8 g/dL Normal [facility] Comment on above: Performed By: #### I NFLUAB #### [facility] [address] [address] [address] Benito Dupree Glucose [Mass/Vol] 218 mg/dL Critically high 74-106 [facility] Comment on above: Performed By: #### I NFLUAB #### [facility] [address] [address] [address] Benito Dupere Potassium [Moles/Vol] 4.1 mmol/L Normal 3.5-5.1 [facility] Comment on above: Performed By: #### I NFLUAB #### [facility] [address] [address] [address] Benito Dupree Protein [Mass/Vol] 8.4 g/dL Critically high 6.4-8.2 [facility] Comment on above: Performed By: #### I NFLUAB #### [facility] [address] [address] [address] Benito Dupree Sodium [Moles/Vol] 135 mmol/L Critically low 136-[address] [facility] Comment on above: Performed By: #### I NFLUAB #### [facility] [address] [address] [address] Benito Dupree Urea nitrogen [Mass/Vol] 15.0 mg/dL Normal 7.0-18.0 [facility] Comment on above: Performed By: #### I NFLUAB #### [facility] [address] [address] [address] Benito Dupree Urea nitrogen/Creatinine [Mass ratio] 17.2 mg/mg Normal [facility] Comment on above: Performed By: #### I NFLUAB #### [facility] [address] [address] [address] Benito Dupree URINE MICROSCOPIC ONLYon BACTERIA TRACE Abnormal NONE SEEN [facility] Comment on above: Performed By: #### U MICRO, ERUR #### [facility] [address] [place] [address] Dr. Benito Dupree Bacteria identified Cx Nom (U) NOT INDICATED Normal [facility] Comment on above: Performed By: #### U MICRO, ERUR #### [facility] [address] [address] [address] Benito Dupree CAST NONE SEEN Normal NONE SEEN [facility] Comment on above: Performed By: #### U MICRO, ERUR #### [facility] [address] [address] [address] Benito Dupree Crystals LM Nom (Urine sed) NONE SEEN Normal NONE SEEN [facility] Comment on above: Performed By: #### U MICRO, ERUR #### [facility] [address] [address] [address] Benito Dupree Epithelial cells LM Ql (Urine sed) MODERATE Abnormal NONE SEEN /RARE [facility] Comment on above: Performed By: #### U MICRO, ERUR #### [facility] [address] [place] [address] Dr. Benito Dupree MUCOUS TRACE Abnormal NONE SEEN [facility] Comment on above: Performed By: #### U MICRO, ERUR #### [facility] [address] [address] [address] Benito Dupree RBC 2-5 Abnormal 0-2 [facility] Comment on above: Performed By: #### U MICRO, ERUR #### [facility] [address] [address] [address] Benito Dupree WBC 0-2 Abnormal NONE SEEN [facility] Comment on above: Performed By: #### U MICRO, ERUR #### [facility] [address] [address] [address] Benito Dupree XR hand RT min 3V*on 022 XR hand RT min 3V* [facility] [employer] Other XR hand RT min 3V* [facility] [employer] Other XR hand RT min 3V* [address] [place] [address] [employer] Other XR hand RT min 3V* [place] [address] [employer] Other XR hand RT min 3V* XRay Report [employer] Other XR hand RT min 3V* Signed [employer] Other XR hand RT min 3V* Patient: Noel Paul MR#: [id number] [place] [employer] Other XR hand RT min 3V* : 1990 Acct:[id number] [employer] Other XR hand RT min 3V* Age/Sex: 31 / F ADM Date: 03/22/22 [employer] Other XR hand RT min 3V* Loc: XDUCLY Room: Type: [facility] [employer] Other XR hand RT min 3V* Attending Dr: Monique SANDOVAL [employer] Other XR hand RT min 3V* Ordering Provider: LORI Dias [employer] Other XR hand RT min 3V* Date of Service: 03/22/22 [employer] Other XR hand RT min 3V* XR/XR hand RT min 3V*: Finger pain, right [employer] Other XR hand RT min 3V* Copies to: Monique Dudley [employer]ORT EXPORT AGENT-C [employer] Other XR hand RT min 3V* 3 viewsRIGHT hand plain film [employer] Other XR hand RT min 3V* COMPARISON:None N [employer] Other XR hand RT min 3V* HISTORY:Fell going upstairs. RIGHT ring finger injury. [employer] Other XR hand RT min 3V* No fracture, dislocation or focal soft tissue abnormality seen. [employer] Other XR hand RT min 3V* XR/XR hand RT min 3V* [employer] Other XR hand RT min 3V* IMPRESSION:No acute findings [employer] Other XR hand RT min 3V* Impression dictated by: Ta Galvan M.D.03/22/2022 4:42 PM [employer] Other XR hand RT min 3V* Dictation Location: [place] [address] [employer] Other XR hand RT min 3V* Transcribed By: DANIELLE 03/22/22 [facility] [employer] Other XR hand RT min 3V* Dictated By: Ta Galvan DO 03/22/221641 [employer] Other XR hand RT min 3V* Signed By: [employer] Other XR hand RT min 3V* 03/22/22 [facility] [employer] Other Vital Signs Date Time Vital Sign Value Performing Clinician Facility 02-05-2025 17:00-0400 Body height 157.48 cm [facility] 02-05-2025 17:00-0400 Body mass index (BMI) [Ratio] 59.2 kg/m2 [facility] 02-05-2025 17:00-0400 Body temperature 98.2 [degF] [facility] 02-05-2025 17:00-0400 Body weight 146.96 kg [facility] 02-05-2025 17:00-0400 Diastolic blood pressure 91 mm[Hg] [facility] 02-05-2025 17:00-0400 Heart rate 82 /min [facility] 02-05-2025 17:00-0400 Respiratory rate 18 /min [facility] 02-05-2025 17:00-0400 SaO2% (BldA) [Mass fraction] 98 % [facility] 02-05-2025 17:00-0400 Systolic blood pressure 151 mm[Hg] [facility] 12-28-2024 09:54-0500 Body height 157.5 cm Pacc 3 Work Phone: [facility] 12-28-2024 09:54-0500 Body mass index (BMI) [Ratio] 62.06 kg/m2 [facility] [employer] Work Phone: [facility] 12-28-2024 09:54-0500 Body temperature 97.39 [degF] [facility] Work Phone: [facility] 12-28-2024 09:54-0500 Body weight 153.9 kg [facility] 3 Work Phone: [facility] 12-28-2024 09:54-0500 Diastolic blood pressure 73 mm[Hg] [facility] 3 Work Phone: [facility] 12-28-2024 09:54-0500 Heart rate 104 /min P[facility] 3 Work Phone: [facility] 12-28-2024 09:54-0500 Respiratory rate 16 /min P[facility] 3 Work Phone: [facility] 12-28-2024 09:54-0500 SaO2% (BldA) [Mass fraction] 98 % [facility] Work Phone: [facility] 12-28-2024 09:54-0500 Systolic blood pressure 130 mm[Hg] [facility] 3 Work Phone: [facility] 10-24-2024 14:24-0500 Body height 157.5 cm Pato Brown DPM Work Phone: [facility] 10-24-2024 14:24-0500 Body mass index (BMI) [Ratio] 56.7 kg/m2 Pato Brown DPM Work Phone: [facility] 10-24-2024 14:24-0500 Body weight 140.62 kg Pato Brown DPM Work Phone: [facility] 10-24-2024 14:24-0500 Respiratory rate 18 /min Pato Brown DPM Work Phone: [facility] 10-04-2024 14:48-0500 Body height 157.5 cm Pato Brown DPM Work Phone: [facility] 10-04-2024 14:48-0500 Body mass index (BMI) [Ratio] 56.7 kg/m2 Pato Brown DPM Work Phone: [facility] 10-04-2024 14:48-0500 Body weight 140.62 kg Pato Brown DPM Work Phone: [facility] 10-04-2024 14:48-0500 Diastolic blood pressure 79 mm[Hg] Pato Brown DPM Work Phone: [facility] 10-04-2024 14:48-0500 Heart rate 82 /min Pato Brown DPM Work Phone: [facility] 10-04-2024 14:48-0500 Systolic blood pressure 129 mm[Hg] Pato Brown DPM Work Phone: [facility] 09-20-2024 14:37-0400 Body height 157.5 cm Pato Avelar DPM Work Phone: [facility] 09-20-2024 14:37-0400 Body mass index (BMI) [Ratio] 56.7 kg/m2 Pato Avelar DPM Work Phone: [facility] 09-20-2024 14:37-0400 Body weight 140.62 kg Pato Avelar DPM Work Phone: [facility] 09-20-2024 14:37-0400 Diastolic blood pressure 77 mm[Hg] Pato Avelar DPM Work Phone: [facility] 09-20-2024 14:37-0400 Heart rate 79 /min Pato Avelar DPM Work Phone: [facility] 09-20-2024 14:37-0400 Systolic blood pressure 126 mm[Hg] Pato Avelar DPM Work Phone: [facility] 09-13-2024 14:46-0400 Body height 157.5 cm Pato Avelar DPM Work Phone: [facility] 09-13-2024 14:46-0400 Body mass index (BMI) [Ratio] 56.7 kg/m2 Pato Avelar DPM Work Phone: [facility] 09-13-2024 14:46-0400 Body weight 140.62 kg Pato Avelar DPM Work Phone: [facility] 09-13-2024 14:46-0400 Diastolic blood pressure 78 mm[Hg] Pato Avelar DPM Work Phone: [facility] 09-13-2024 14:46-0400 Heart rate 85 /min Pato Avelar DPM Work Phone: [facility] 09-13-2024 14:46-0400 Systolic blood pressure 123 mm[Hg] Pato Brown DPM Work Phone: [facility] 08-30-2024 14:58-0400 Body height 157.5 cm Pato Rodo DPM Work Phone: [facility] 08-30-2024 14:58-0400 Body mass index (BMI) [Ratio] 56.7 kg/m2 Pato Rodo DPM Work Phone: [facility] 08-30-2024 14:58-0400 Body weight 140.62 kg Pato Rodo DPM Work Phone: [facility] 08-30-2024 14:58-0400 Diastolic blood pressure 80 mm[Hg] Pato Rodo DPM Work Phone: [facility] 08-30-2024 14:58-0400 Heart rate 75 /min Pato Avelar DPM Work Phone: [facility] 08-30-2024 14:58-0400 Respiratory rate 18 /min Pato Avelar DPM Work Phone: [facility] 08-30-2024 14:58-0400 Systolic blood pressure 128 mm[Hg] Patoanuj Avelar DPM Work Phone: [facility] 08-02-2024 14:52-0400 Body height 157.5 cm Pato Avelar DPM Work Phone: [facility] 08-02-2024 14:52-0400 Body mass index (BMI) [Ratio] 56.7 kg/m2 Pato Rodo DPM Work Phone: [facility] 08-02-2024 14:52-0400 Body weight 140.62 kg Pato Avlear DPM Work Phone: [facility] 08-02-2024 14:52-0400 Diastolic blood pressure 79 mm[Hg] Pato Brown DPM Work Phone: [facility] 08-02-2024 14:52-0400 Heart rate 82 /min Pato Brown DPM Work Phone: [facility] 08-02-2024 14:52-0400 Systolic blood pressure 127 mm[Hg] Pato Brown DPM Work Phone: [facility] 07-24-2024 14:58-0400 Body height 157.5 cm Jaime Camargo DO Work Phone: [facility] 07-24-2024 14:58-0400 Body mass index (BMI) [Ratio] 56.7 kg/m2 Jaime Camargo DO Work Phone: [facility] 07-24-2024 14:58-0400 Body weight 140.62 kg Jaime Camargo DO Work Phone: [facility] 05-16-2024 15:25-0400 Diastolic blood pressure 70 mm[Hg] [employer] EXPORT AGENT-C Monique Whitleymer Work Phone: [facility] 05-16-2024 15:25-0400 Heart rate 80 /min [employer] EXPORT AGENT-C Monique Whitleymer Work Phone: [facility] 05-16-2024 15:25-0400 Respiratory rate 22 /min [employer] EXPORT AGENT-C Monique Lien Work Phone: [facility] 05-16-2024 15:25-0400 SaO2% (BldA) [Mass fraction] 94 % [employer] EXPORT AGENT-C Monique Lien Work Phone: [facility] 05-16-2024 15:25-0400 Systolic blood pressure 124 mm[Hg] IMPORT EXPORT AGENT-C Monique Lien Work Phone: [facility] 05-16-2024 12:57-0400 Body temperature 98.6 [degF] [employer] EXPORT AGENT-C Monique Lien Work Phone: [facility] 05-16-2024 12:57-0400 Inhaled oxygen flow rate 6 L/min [employer] EXPORT AGENT-C Monique Lien Work Phone: [facility] 05-16-2024 10:38-0400 Body mass index (BMI) [Ratio] 56.5 kg/m2 [employer]PORT [employer]-C Monique Lien Work Phone: [facility] 05-16-2024 10:31-0400 Body height 157.48 cm IMPORT EXPORT AGENT-C Monique Emmanuel Work Phone: [facility] 05-16-2024 10:31-0400 Body weight 140.16 kg IMPORT EXPORT AGENT-C Monique Emmanuel Work Phone: [facility] 04-25-2024 13:27-0400 Diastolic blood pressure 85 mm[Hg] Pato Avelar [facility] 04-25-2024 13:27-0400 Heart rate 64 /min Pato Avelar [facility] 04-25-2024 13:27-0400 Mean blood pressure 103 mm[Hg] Pato Avelar [facility] 04-25-2024 13:27-0400 Systolic blood pressure 139 mm[Hg] Pato Avelar [facility] 04-25-2024 13:26-0400 Heart rate 65 /min Pato Avelar [facility] 04-25-2024 13:26-0400 Respiratory rate 16 /min Pato Avelar [facility] 04-25-2024 13:26-0400 SaO2% (BldA) [Mass fraction] 93 % Pato Avelar [facility] 04-25-2024 13:26-0400 Blood Pressure Location Pato Avelar [facility] 04-25-2024 13:26-0400 Body temperature 98.42 [degF] Pato Avelar [facility] 04-25-2024 13:26-0400 Diastolic blood pressure 83 mm[Hg] Pato Avelar [facility] 04-25-2024 13:26-0400 Mean blood pressure 100 mm[Hg] Pato Avelar [facility] 04-25-2024 13:26-0400 Systolic blood pressure 135 mm[Hg] Pato Avelar [facility] 02-27-2024 17:36-0400 Body height 154.94 cm IMPORT EXPORT AGENT-C Monique Emmanuel Work Phone: [facility] 02-27-2024 17:36-0400 Body mass index (BMI) [Ratio] 58.4 kg/m2 [employer] EXPORT [employer]ENT-C Monique Emmanuel Work Phone: [facility] 02-27-2024 17:36-0400 Body temperature 97.7 [degF] [employer] EXPORT AGENT-C Monique Emmanuel Work Phone: [facility] 02-27-2024 17:36-0400 Body weight 140.38 kg IMPORT EXPORT AGENT-C Monique Emmanuel Work Phone: [facility] 02-27-2024 17:36-0400 Heart rate 87 /min IMPORT EXPORT AGENT-C Monique Emmanuel Work Phone: [facility] 02-27-2024 17:36-0400 Respiratory rate 18 /min IMPORT EXPORT AGENT-C Monique Emmanuel Work Phone: [facility] 02-27-2024 17:36-0400 SaO2% (BldA) [Mass fraction] 97 % IMPORT EXPORT AGENT-C Monique Emmanuel Work Phone: [facility] 03-22-2022 16:45-0400 Body height 154.94 cm Monique Dudley Other [employer] [facility] [employer] Other 03-22-2022 16:45-0400 Body mass index (BMI) [Ratio] 58.38 kg/m2 Monique Dudley Other [employer] Other 03-22-2022 16:45-0400 Body temperature 97.9 [degF] Monique Dudley Other [employer] Other 03-22-2022 16:45-0400 Body weight 140.16 kg Monique Dudley Other [employer] Other 03-22-2022 16:45-0400 Diastolic blood pressure 93 mm[Hg] Monique Dudley Other [employer] Other 03-22-2022 16:45-0400 Respiratory rate 20 /min Monique Dudley Other [employer] Other 03-22-2022 16:45-0400 SaO2% (BldA) [Mass fraction] 98 % Monique Dudley Other [employer] Other 03-22-2022 16:45-0400 Systolic blood pressure 154 mm[Hg] Monique Dudley Other [employer] Other Encounters Encounter Date Encounter Type Care Provider Facility Start: 02-05-2025 End: 02-05-[address] [facility] Work Phone: Start: 02-05-2025 End: 02-05-2025 Patient encounter procedure [facility] Work Phone: Start: 01-23-2025 End: 01-23-2025 ambulatory SELF Facility:[facility] Start: 01-23-2025 End: 01-23-2025 Patient encounter procedure Sean Mata DPM Work Phone: Orthopaedics Comment on above: S/P foot surgery, ri ght (Primary Dx); Accessory navicular bone of right foot S/P foot surgery, ri ght (Primary Dx) Start: 01-23-2025 ambulatory SEAN MATA Fac ility:[facility] Start: 01-09-2025 End: 01-09-2025 ambulatory MONIQUE EMMANUEL Facility:[facility] Start: 01-09-2025 End: 01-09-2025 Patient encounter procedure Sean LEDESMAM Work Phone: Orthopaedics Comment on above: S/P foot surgery, ri ght (Primary Dx); Accessory navicular bone of right foot S/P foot surgery, ri ght (Primary Dx) Start: 01-02-2025 End: 01-02-2025 Telephone encounter Sean LEDESMAM Work Phone: Orthopaedics Start: 12-31-2024 End: 01-01-2025 Telephone encounter Sean LEDESMAM Work Phone: [facility] [place] Comment on above: Surgical Followup Start: 12-31-2024 End: 12-31-2024 ambulatory SEAN MATA Facility:[facility] Start: 12-28-2024 End: 12-28-2024 [facility] Work Phone: Pre Anesthesia Start: 12-28-2024 End: 12-28-2024 ambulatory MONIQUE EMMANUEL Facility:[facility] Start: 12-28-2024 End: 12-28-2024 Anesthesia consultation [facility] Work Phone: Pre Anesthesia Comment on above: Pre-op evaluation (P rimary Dx); Gastroesophageal reflux disease, 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 esophagitis present; Diabetes mellitus without complication (HCC); BMI 60.0-69.9, adult (HCC); AQUILES (obstructive sleep apnea) Start: 12-28-2024 Encounter for other preprocedural examination MONIQUE EMMANUEL [facility] Start: 12-28-2024 End: 12-28-2024 Preprocedural examination done [facility] Work Phone: [facility] Work Phone: Start: 12-14-2024 End: 12-14-2024 Orders Only Sean LEDESMAM Work Phone: Orthopaedics Comment on above: 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) Start: 12-12-2024 End: 12-12-2024 Telephone encounter Sean LEDESMAM Work Phone: Orthopaedics Comment on above: Surgical Followup Start: 12-12-2024 End: 12-12-2024 Patient encounter procedure Jamal Reynoso RT(R) Radiology Comment on above: Pain in right foot ( Primary Dx); Accessory navicular bone of right foot Start: 12-12-2024 End: 12-12-2024 ambulatory Jamal Reynoso RT(R) Radiology Comment on above: Radiology XR Start: 12-12-2024 End: 12-12-2024 Subsequent hospital visit by physician Saúl Martínez 1 Work Phone: Radiology Comment on above: Pain [R52] Start: 12-05-2024 End: 01-02-2025 Orders Only Sean Mata DPM Work Phone: [facility] [place] Comment on above: Pain (Primary Dx) Start: 11-26-2024 End: 11-26-2024 ambulatory [facility] Start: 10-24-2024 End: 10-24-2024 Postop follow up visit related to original px Pato Avelar DPM Work Phone: [facility] Comment on above: Stress fracture of r ight foot, initial encounter (Primary Dx); Type 2 diabetes mellitus without complication, 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 [place] [facility] [place] ([facility]); Accessory navicular bone of right foot Start: 10-24-2024 End: 10-24-2024 ambulatory PATO AVELAR Not Available Start: 10-24-2024 End: 10-24-2024 Bamboo flowsheet Pato Avelar DPM Work Phone: [facility] Start: 10-24-2024 End: 10-24-2024 Bamboo flowsheet Pato Avelar DPM Work Phone: [facility] Start: 10-04-2024 End: 10-04-2024 Postop follow up visit related to original px Pato Avelar DPM Work Phone: [facility] Comment on above: 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); Contracture of right ankle; Stress fracture of right foot, initial encounter Start: 10-04-2024 End: 10-04-2024 ambulatory PATO AVELAR Not Available Start: 10-04-2024 End: 10-04-2024 Bamboo flowsheet Pato Avelar DPM Work Phone: [facility] Start: 10-04-2024 End: 10-04-2024 Bamboo flowsheet Pato Avelar DPM Work Phone: [facility] Start: 09-20-2024 End: 09-20-2024 Postop follow up visit related to original px Pato Avelar DPM Work Phone: [facility] Comment on above: 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); Contracture of right ankle Start: 09-20-2024 End: 09-20-2024 ambulatory PATO AVELAR Not Available Start: 09-20-2024 End: 09-20-2024 Bamboo flowsheet Pato Avelar DPM Work Phone: [facility] Start: 09-20-2024 End: 09-20-2024 Bamboo flowsheet Pato Avelar DPM Work Phone: [facility] Start: 09-13-2024 End: 09-13-2024 Postop follow up visit related to original px Pato Avelar DPM Work Phone: [facility] Comment on above: 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); Contracture of right ankle; Type 2 diabetes mellitus without complication, 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 carman insulin use ([facility]) Start: 09-13-2024 End: 09-13-2024 ambulatory PATO AVELAR Not Available Start: 09-07-2024 End: 09-07-2024 Telephone encounter Pato Avelar DPM Work Phone: [facility] Start: 09-05-2024 End: 09-05-2024 Lab Drop off Pato Avelar [facility] Start: 09-05-2024 End: 09-05-2024 ambulatory DPM Pato Avelar Facility:[facility] Start: 08-30-2024 End: 08-30-2024 Office outpatient visit 25 minutes Pato Avelar DPM Work Phone: [facility] Comment on above: 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); Type 2 diabetes mellitus without complication, 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 carman insulin use ([facility]); Heel spur, left; Plantar fasciitis; Contracture of left ankle; Contracture of right ankle Start: 08-30-2024 End: 08-30-2024 ambulatory PATO AVELAR Not Available Start: 08-30-2024 End: 08-30-2024 Bamboo flowsheet Pato Avelar DPM Work Phone: [facility] Start: 08-30-2024 End: 08-30-2024 Bamboo flowsheet Pato Avelar DPM Work Phone: [facility] Start: 08-02-2024 End: 08-02-2024 Office outpatient visit 15 minutes Pato Avelar DPM Work Phone: [facility] Comment on above: 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); Posterior tibial tendonitis of right leg; Type 2 diabetes mellitus without complication, 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 [place] [facility] [place] [facility] ([facility]) Start: 08-02-2024 End: 08-02-2024 ambulatory PATO AVELAR Not Available Start: 08-02-2024 End: 08-02-2024 Bamboo flowsheet Pato Avelar DPM Work Phone: [facility] Start: 08-02-2024 End: 08-02-2024 Bamboo flowsheet Pato Avelar DPM Work Phone: [facility] Start: 07-24-2024 End: 07-24-2024 Office outpatient new 45 minutes Jaime Camargo DO Work Phone: [facility] [place] Comment on above: Arthralgia of left t emporomandibular joint (Primary Dx); Left ear pain; Chronic rhinitis; Fullness in ear, left Start: 07-24-2024 End: 07-24-2024 ambulatory JAIME CAMARGO Not Available Start: 07-24-2024 End: 07-24-2024 Bamboo flowsheet Jaime Camargo DO Work Phone: [facility] Start: 07-24-2024 End: 07-24-2024 Bamboo flowsheet Jaime Camargo DO Work Phone: [facility] Start: 07-19-2024 End: 07-19-2024 Office outpatient visit 15 minutes Pato Avelar DPM Work Phone: [facility] Comment on above: Posterior tibial ten donitis of right leg (Primary Dx); Accessory navicular bone of left foot; Type 2 diabetes mellitus without complication, 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 [place] [facility] ([facility]); Accessory navicular bone of right foot Start: 07-19-2024 End: 07-19-2024 ambulatory PTAO AVELAR Not Available Start: 07-19-2024 End: 07-19-2024 Bamboo flowsheet Pato Avelar DPM Work Phone: [facility] Start: 07-19-2024 End: 07-19-2024 Bamboo flowsheet Pato Avelar DPM Work Phone: [facility] Start: 07-19-2024 End: 08-02-2024 Telephone encounter Pato Avelar DPM Work Phone: [facility] Comment on above: [facility] Start: 06-28-2024 End: 06-28-2024 ambulatory PATO AVELAR Not Available Start: 06-07-2024 End: 06-07-2024 ambulatory PATO AVELAR Not Available Start: 05-24-2024 End: 05-24-2024 ambulatory PATO AVELAR Not Available Start: 05-16-2024 End: 05-16-2024 Admission to same day surgery center IMPORT EXPORT AGENT-C Monique Emmanuel Work Phone: [facility] [place] Start: 05-16-2024 End: 05-16-2024 ambulatory IMPORT EXPORT AGENT-C Moniquegisselle Emmanuel Work Phone: [facility] Work Phone: Start: 05-03-2024 End: 05-03-2024 ambulatory PATO AVELAR Not Available Start: 04-25-2024 ambulatory Pato Avelar Facili ty:[facility] Start: 04-25-2024 End: 04-25-2024 ambulatory DPM Pato Avelar Facility:[facility] Start: 04-25-2024 End: 04-25-2024 Patient encounter procedure Pato Avelar [facility] Start: 04-16-2024 End: 05-10-2024 Pre-admission assessment Pato Avelar [facility] Start: 04-12-2024 End: 04-12-2024 ambulatory PATO AVELAR Not Available Start: 03-29-2024 End: 03-29-2024 ambulatory PATO AVELAR Not Available Start: 02-27-2024 End: 02-27-2024 ambulatory IMPORT EXPORT AGENT-C Monique Alicia Lien Work Phone: [facility] Work Phone: Start: 02-27-2024 End: 02-27-2024 Patient encounter procedure IMPORT EXPORT AGENT-C Monique Emmanuel Work Phone: [facility] Work Phone: Start: 04-27-2023 ambulatory MONIQUE EMMANUEL Facility: [facility] Start: 01-05-2023 End: 01-05-2023 ambulatory MONIQUE EMMANUEL Facility:[facility] Start: 11-28-2022 End: 11-29-2022 ambulatory MONIQUE EMMANUEL Facility:[facility] Start: 11-15-2022 End: 11-16-2022 ambulatory MONIQUE LIEN Facility:[facility] Start: 10-25-2022 End: 11-27-2022 ambulatory MONIQUE EMMANUEL Facility:[facility] Start: 08-25-2022 End: 08-26-2022 ambulatory MONIQUE EMMANUEL Facility:[facility] Start: 08-19-2022 Encounter for genera l adult medical examination without abnormal findings MONIQUE EMMANUEL [facility] Start: 08-18-2022 End: 08-19-2022 ambulatory MONIQUE EMMANUEL Facility:[facility] Start: 08-18-2022 End: 08-19-2022 Encounter for general adult medical examination without abnormal findings MONIQUE EMMANUEL Facility:[facility] Start: 06-01-2022 End: 06-01-[address] WESTLEY JHA Facility:[facility] Start: 03-22-2022 End: 03-22-2022 ambulatory Monique Dudley Other [employer] Other Start: 03-22-2022 Office outpatient vi sit 15 minutes Monique Dudley [facility] Procedures Date Procedure Procedure Detail Performing Clinician Start: 12-12-2024 Radex foot complete minimum 3 views Sean Mata DPM Work Phone: Start: 05-16-2024 Debridement IMPORT EXPORT AGENT-C Shruti Emmanuel Work Phone: Start: 05-16-2024 X-ray of left foot IMPORT EXPORT AGENT-C Monique Emmanuel Work Phone: Start: 02-27-2024 Plain X-ray of right shoulder IMPORT EXPORT AGENT-C Monique Emmanuel Work Phone: Cholecystectomy Pato pulliam Plan of Treatment Date Care Activity Detail Author Start: 07-06-2034 Urine microalbumin profile DTaP,Tdap,Td Vaccine (7 - Td or Tdap) [facility] Start: 02-13-2025 End: 02-13-2025 Patient encounter procedure Orthopaedics Comment on above: Post op right foot, SX 12/31/24 Start: 01-23-2025 End: 01-23-2025 Patient encounter procedure Orthopaedics Comment on above: Post op right foot, SX 12/31/24 Right Foot Start: 01-09-2025 End: 01-09-2025 Patient encounter procedure 01/09/2025 10:15 AM EST Office Visit Orthopaedics [address] [place] [address] Sean Mata, DPM [address] [place] [address] Post op right foot, SX 12/31/24 Orthopaedics Comment on above: Post op right foot, SX 12/31/24 Start: 12-31-2024 End: 12-31-2024 Admission to same day surgery center 12/31/2024 1:30 PM EST - 12/31/2024 3:30 PM EST Surgery Ambulatory Surgery [address] [place] [address] Sean Mata, DPM [address] [place] [address] RECONSTRUCTION POSTERIOR TIBIAL TENDON W/EXCISION OF ACCESSORY TARSAL NAVICULAR BONE Ambulatory Surgery Comment on above: RECONSTRUCTION POSTE RIOR TIBIAL TENDON W/EXCISION OF ACCESSORY TARSAL NAVICULAR BONE Start: 12-31-2024 End: 12-31-2024 Rcnstj pst tibl tdn w/exc accessory tarsl navclr RECONSTRUCTION POSTERIOR TIBIAL TENDON W/EXCISION OF ACCESSORY TARSAL NAVICULAR BONE Accessory navicular bone of right foot 12/31/2024 1:30 PM EST [facility] Start: 12-31-2024 Subsequent hospital visit by physician 12/31/2024 1:30 PM EST Hospital Encounter Ambulatory Surgery [address] [place] [address] Sean Mata, DPM [address] [place] [address] 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] Ambulatory Surgery Comment on above: 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] Start: 12-31-2024 End: 12-31-2024 Admission to same day surgery center 12/31/2024 7:30 AM EST - 12/31/2024 9:25 AM EST Surgery Ambulatory Surgery [address] [place] [address] [place], DPM [address] [place] [address] RECONSTRUCTION POSTERIOR TIBIAL TENDON W/EXCISION OF ACCESSORY TARSAL NAVICULAR BONE Ambulatory Surgery Comment on above: RECONSTRUCTION POSTE RIOR TIBIAL TENDON W/EXCISION OF ACCESSORY TARSAL NAVICULAR BONE Start: 12-31-2024 End: 12-31-2024 Anesthesia consultation 12/31/2024 7:30 AM EST Anesthesia Event Ambulatory Surgery [address] [place] [address] [place] [address] [place] [address] Ambulatory Surgery Start: 12-31-2024 End: 12-31-2024 Rcnstj pst tibl tdn w/exc accessory tarsl navclr RECONSTRUCTION POSTERIOR TIBIAL TENDON W/EXCISION OF ACCESSORY TARSAL NAVICULAR BONE Accessory navicular bone of right foot 12/31/2024 7:30 AM EST [facility] Start: 12-31-2024 Subsequent hospital visit by physician 12/31/2024 7:30 AM EST Hospital Encounter Ambulatory Surgery [address] [place] [address] Sean Mata, DPM [address] [place] [address] 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] Ambulatory Surgery Comment on above: 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] Start: 12-28-2024 End: 12-28-2024 Anesthesia consultation 12/28/2024 10:10 AM EST PAT Pre Anesthesia [address] [place] [address] PACC right foot, SX 12/31/24 Pre Anesthesia Comment on above: PACC right foot, SX 12/31/24 Start: 11-01-2024 End: 11-01-2024 Patient encounter procedure 11/01/2024 4:20 PM EST Office Visit [facility] [address] [facility] [address] [place] [phone] Pato Avelar DPM [address] [address] [facility] Start: 10-24-2024 End: 10-24-2024 Patient encounter procedure 10/24/2024 2:40 PM EST Office Visit [facility] [address] [place] [phone] Pato Avelar DPM [address] [address] Stress fracture of right foot, initial encounter (Primary Dx); Type 2 diabetes mellitus without complication, 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 [place] [facility] use (CMS/HCC) [facility] Comment on above: Stress fracture of r ight foot, initial encounter (Primary Dx); Type 2 diabetes mellitus without complication, 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 [place] [facility] insulin use (CMS/HCC) Start: 10-11-2024 Hepatitis B Vaccine (3 of 3 - 3-dose series) Hepatitis B Vaccine (3 of 3 - 3-dose series) [facility] Start: 10-04-2024 End: 10-04-2024 Patient encounter procedure 10/04/2024 2:40 PM EST Office Visit [facility] [address] [phone] Pato Avelar DPM [address] [address] 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); Contracture of right ankle [facility] Comment on above: 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); Contracture of right ankle Start: 09-20-2024 End: 09-20-2024 Patient encounter procedure 09/20/2024 2:40 PM EDT Office Visit [facility] [address] [facility] [address] [place] [address] Pato Avelar DPM [address] [address] 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); Contracture of right ankle [facility] Comment on above: 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); Contracture of right ankle Start: 09-13-2024 End: 09-13-2024 Patient encounter procedure 09/13/2024 3:20 PM EDT Office Visit [facility] [address] [facility] [address] [place] [address] Pato Avelar DPM [address] [address] [facility] Start: 09-12-2024 End: 09-12-2024 Patient encounter procedure 09/12/2024 3:00 PM EDT Office Visit [facility] [address] [place] [address] Pato Avelar DPM [address] [address] [facility] Start: 09-05-2024 End: 09-05-2024 Patient encounter procedure 09/05/2024 7:30 AM EDT Procedure Visit [facility] Pato Avelar DPM [address] [address] [facility] Start: 08-30-2024 End: 08-30-2024 Patient encounter procedure 08/30/2024 2:50 PM EDT Office Visit [facility] [address] [facility] [address] [place] [address] Pato Avelar DPM [address] [address] 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); Type 2 diabetes mellitus without complication, 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 [place] [facility] use ([facility]) [facility] Comment on above: 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); Type 2 diabetes mellitus without complication, 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 [place] [facility] use ([facility]) Start: 08-02-2024 End: 08-02-2024 Patient encounter procedure [facility] Comment on above: 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); Posterior tibial tendonitis of right leg; Type 2 diabetes mellitus without complication, 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 carman insulin use ([facility]) Start: 07-29-2024 Covid-19 Vaccine ( season) Covid-19 Vaccine ( season) [facility] Start: 07-29-2024 Influenza vaccination Influenza Vacc ine (#1) [facility] Start: 07-24-2024 End: 07-24-2024 Patient encounter procedure [facility] Comment on above: Arrived Start: 07-19-2024 End: 07-19-2024 Patient encounter procedure 07/19/2024 4:00 PM EDT Office Visit [facility] [address] [place] [phone] Pato Avelar DPM [address] [address] Accessory navicular bone of left foot (Primary Dx); Type 2 diabetes mellitus without complication, 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 carman insulin use ([facility]) [facility] Comment on above: Accessory navicular bone of left foot (Primary Dx); Type 2 diabetes mellitus without complication, 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 [place] [facility] use (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 Disease Visit Annual PCP Team Chronic Disease Visit [facility] Start: 2006 Anxiety Screening Anxiety Screening [facility] Start: 2006 Depression Screening Depression Scre ening [facility] Start: 2006 Hepatitis B surface antibody level LDL Cholesterol [facility] Start: 2006 Hepatitis C screening Hepatitis C Sc reening [facility] Start: 2006 HIV screening HIV Screening [facility] Start: 1999 Urine microalbumin profile DTaP,Tdap,Td Vaccine (6 - Tdap) [facility] Start: 1998 Diabetic foot examination Diabetic Foot Exam [facility] Start: 1998 Glaucoma screening [facility] Start: 1998 Hepatitis B screening Urine Albumin:Creatinine Ratio [facility] Start: 1993 Hemoglobin A1c measurement HbA1C [facility] Start: 1988 Hemoglobin A1c measurement Diabetes: Hemoglobin A1C [facility] MR Foot - right WO contrast MR foot right wo IV contrast Imaging Routine Stress fracture of right foot, initial encounter Ordered: 10/04/2024 [facility] Work Phone: Comment on above: Ordered: 10/04/2024 Patient Education Know your [facility] Work Phone: XR Foot - right 3 Views XR foot 3+ views right Imaging Routine Accessory navicular bone of right foot 09/13/2024 3:04 PM EDT [facility] Work Phone: XR Foot - right 3 Views XR foot 3+ views right Imaging Routine Accessory navicular bone of right foot 08/02/2024 3:28 PM EDT [facility] Work Phone: End: 02-02-2026 XR Foot - right AP and Lateral and oblique XR FOOT GENERAL 3V AP/LAT/OBL RIGHT Radiology Routine S/P foot surgery, right 1 Occurrences starting 01/03/2025 until 02/02/2026 [facility] Work Phone: Comment on above: 1 Occurrences starti ng 01/03/2025 until 02/02/2026 End: 02-10-2026 XR Foot - right AP and Lateral and oblique XR FOOT GENERAL 3V AP/LAT/OBL RIGHT Radiology Routine S/P foot surgery, right 1 Occurrences starting 01/16/2025 until 02/10/2026 [facility] Work Phone: Comment on above: 1 Occurrences starti ng 01/16/2025 until 02/10/2026 Immunizations Immunization Date Immunization Notes Care Provider Tony teague 07-19-2002 hepatitis B vaccine, pediatric or pediatric/adolescent dosage Jaime Camargo DO Work Phone: [facility] 07-19-2002 measles, mumps and rubella virus vaccine Jaime Camargo DO Work Phone: [facility] 04-16-1993 diphtheria, tetanus toxoids and pertussis vaccine Jaime Camargo DO Work Phone: [facility] [facility] 04-16-1993 trivalent poliovirus vaccine, live, oral Jaime Camargo DO Work Phone: [facility] 05-18-1990 haemophilus influenz ae type b vaccine, conjugate unspecified formulation Jaime Camargo DO Work Phone: [facility] 10-13-1989 diphtheria, tetanus toxoids and pertussis vaccine Jaime Camargo DO Work Phone: [facility] 10-13-1989 measles, mumps and rubella virus vaccine Jaime Camargo DO Work Phone: [facility] 10-13-1989 trivalent poliovirus vaccine, live, oral Jaime aCmargo DO Work Phone: [facility] 05-11-1989 diphtheria, tetanus toxoids and pertussis vaccine Jaime Camargo DO Work Phone: [facility] 03-17-1989 diphtheria, tetanus toxoids and pertussis vaccine Jaime Camargo DO Work Phone: [facility] 03-17-1989 trivalent poliovirus vaccine, live, oral Jaime Camargo DO Work Phone: [facility] 1988 diphtheria, tetanus toxoids and pertussis vaccine Jaime Camargo DO Work Phone: [facility] 1988 trivalent poliovirus vaccine, live, oral Jaime Camargo DO Work Phone: [facility] Healthcare Payers Date Payer Category Payer Unknown [id number] 2024 Self-pay [id number] 2020 [employer] [place] [employer] 1.2.8 [id number] 15 2020 Unknown [id number] 1988 Unknown [id number] 2.16.84 0.1.941503.3.579.2.593 1988 Unknown [id number] 2.16.84 0.1.418075.3.579.2.593 1988 Unknown [id number] 2.16.84 0.1.600109.3.579.2.593 1988 Unknown [id number] 2.16.84 0.1.009687.3.579.2.593 1988 Unknown [id number] 2.16.84 0.1.953150.3.579.2.593 1988 Unknown [id number] 2.16.84 0.1.271733.3.579.2.593 1988 Unknown [id number] 2.16.84 0.1.281104.3.579.2.593 1988 Unknown [id number] 2.16.84 0.1.566445.3.579.2.593 1988 Unknown [id number] 2.16.8 40.1.014307.3.579.2.727 1988 Unknown [id number] 2.16.84 0.1.369243.3.579.2.9 1988 Unknown [id number] 2.16.84 0.1.275625.3.579.2.1258 1988 Unknown [id number] 2.16.84 0.1.035513.3.579.2.1258 1988 Unknown [id number] 2.16.84 0.1.370036.3.579.2.1258 1988 Unknown [id number] 2.16.84 0.1.130751.3.579.2.1258 1988 Unknown [id number] 2.16.84 0.1.335260.3.579.2.1258 1988 Unknown [id number] 2.16.8 40.1.455118.3.579.2.727 1988 Unknown [id number] 2.16.84 0.1.404490.3.579.2.1258 1988 Unknown [id number] 2.16.84 0.1.356698.3.579.2.1258 1988 Unknown [id number] 2.16.84 0.1.652440.3.579.2.1258 1988 Unknown [id number] 2.16.84 0.1.905502.3.579.2.1258 1988 Unknown [id number] 2.16.84 0.1.682928.3.579.2.1258 1988 Unknown [id number] 2.16.84 0.1.078745.3.579.2.1258 1988 Unknown [id number] 2.16.84 0.1.211312.3.579.2.1258 1988 Unknown [id number] 2.16.84 0.1.951460.3.579.2.1258 1988 Unknown [id number] 2.16.84 0.1.484856.3.579.2.1258 1988 Unknown [id number] 2.16.84 0.1.809739.3.579.2.1259 1959 [facility] [id number] 2.16.840.1.627588.19 Unknown [id number] 2.16.8 40.1.685944.3.579.2.531 Unknown [id number] 2.16.8 40.1.413487.3.579.2.531 Social History Date Type Detail Facility Unknown if ever smoked [employer] Other Start: 08-02-2024 End: 12-12-2024 Sex Assigned At [facility] Start: 10-25-2018 End: 05-16-2024 Tobacco smoking status NHIS Never smoked tobacco (finding) [facility] Start: 1990 Sex Assigned At Female [facility] Tobacco smoking status No Smoking Status Entered [facility] Start: 03-29-2024 End: 12-28-2024 Tobacco use and exposure Smokeless tobacco non-user [facility] Start: 08-02-2024 End: 12-31-2024 Alcoholic beverage intake Lifetime non-drinker (finding) [facility] Start: 08-02-2024 End: 12-12-2024 History of Social function [facility] Start: 1988 Sex assigned at Not on file [facility] Tobacco smoking status NMIS Tobacco smoking consumption unknown [facility] Adult Depression Screening Assessment 2 [facility] Start: 02-05-2025 Sex Female (finding) [facility] NEGATED: Highlighted rowStart: NINF History of tobacco use Passive smoker [facility] Medical Equipment Procedure Code Equipment Code Equipment Origin al Text Equipment Identifier Dates Wound debridement Tendon/ligamen t bone anchor, non-bioabsorbable [id number] Start: 05-16-2024 Varnell Suturetak Fiberwire 1 .5 [place] 2 Joselin Biocomposite 26.2mm Suture - [id number] Start: 12-31-2024 Blood Sugar Diagnostic (WeDemandtouch Ultra Test) strip Start: 02-05-2025 Goals Date Patient Goal Desired Activity /State Functional Status Date Assessment Result Facility 04-25-2024 Functional Status No [facility] Clinical Notes 03-22-2022 to 01-23-2025 Addendum Note - Natalia Barrios CT - 01/23/2025 12:18 PM ESTAddendum Note - Natalia Barrios CT - 01/23/2025 12:18 PM ESTLoBeverly garcia Cast Tech - 01/23/2025 11:51 AM ESTPatient Instructions Note Date & Type Note Facility 01-23-2025 Note Addended by: NATALIA BARRIOS on: 01/23/2025 12:18 PM Modules accepted: Orders [facility] 01-23-2025 Miscellaneous Notes Addended by: NATALIA BARRIOS on: 01/23/2025 12:18 PM Modules accepted: Orders documented in this encounter [facility] 01-23-2025 Note HNO ID: [id number] Author: BEVERLY DOBSON Cast Tech Service: ? Author Type: Brick Extruder Operator Type: Progress Notes Filed: 01/23/2025 11:52 Note Text: Patient in today for scheduled appointment. Cast removed. Right leg cleansed with sea-clens. Examined by Dr. Mata. Applied A Short Leg Nonweightbearing Cast to the right leg. Instructions on cast care given. Will f/u as scheduled/prn. HAYES Johnson [facility] 01-23-2025 History of Present illness Narrative Patient in today for scheduled appointment. Cast removed. Right leg cleansed with sea-clens. Examined by Dr. Mata. Applied A Short Leg Nonweightbearing Cast to the right leg. Instructions on cast care given. Will f/u as scheduled/prn. HAYES Johnson documented in this encounter [facility] 01-23-2025 Note HNO ID: [id number] Author: SEAN MATA DPM Service: ? Author Type: Physician Type: Progress Notes Filed: 01/23/2025 11:47 Note Text: PRIMARY SERVICE: [facility] Podiatry SUBJECTIVE: Patient is seen today for her second scheduled postop visit with her present 3 weeks status post a revision of modified Kidner procedure of her right foot without complaints. Medical: PAST MEDICAL HISTORY PAST MEDICAL HISTORY Diagnosis Date Diabetes mellitus (HCC) GERD (gastroesophageal reflux disease) Obesity AQUILES (obstructive sleep apnea) PONV (postoperative nausea and vomiting) ALLERGIES: ALLERGIES ALLERGIES Allergen Reactions Sulfa (Sulfonamide * Hives, Rash MEDICATIONS: CURRENT MEDICATIONS Current Outpatient Medications Medication Sig keTORolac (TORADOL) 10 mg tablet Take 1 tablet by mouth every 6 hours as needed. with food. aspirin 325 mg tablet Take 1 tablet by mouth once daily. promethazine (PHENERGAN) 12.5 mg tablet Take 1 tablet by mouth every 8 hours as needed for up to 10 days. DEXCOM G7 TRADER 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 DEXCOM G7 SENSOR eduin [...] for this visit. Surgical: PAST SURGICAL HISTORY PAST SURGICAL HISTORY Procedure Laterality Date PAST SURGICAL HISTORY OF Bilateral foot x2 PAST SURGICAL HISTORY OF Right shoulder REMOVAL GALLBLADDER PHYSICAL EXAM: The patient is alert and oriented x 3 and in no apparent acute distress. Patient presents with a clean dry intact BK fiberglass cast and dressings on the right lower extremity [...] Satisfactory postop progress right foot status post 3 weeks appropriate to continue as is TREATMENT TODAY: Second postop visit right foot Discussed results of clinical examination with the patient and family in detail upon removal of the BK fiberglass cast and dressings. Painted incision with Betadine. Reapplied a bulky dry sterile dressing sterile 4 x 4's Kerlix followed by well-padded BK fiberglass nonweightbearing cast dorsiflexed to resistance and inverted. I will see the patient back in approximately 3 weeks for reevaluation with final cast. Continue nonweightbearing until further advised. We will begin progressive partial weightbearing next visit in an Aircast CAM Walker boot and refer to physical therapy. SIGNATURE: Sean Mata DPM [facility] 01-23-2025 History of Present illness Narrative PRIMARY SERVICE: [facility] Podiatry SUBJECTIVE: Patient is seen today for her second scheduled postop visit with her present 3 weeks status post a revision of modified Kidner procedure of her right foot without complaints. Medical: PAST MEDICAL HISTORY PAST MEDICAL HISTORY Diagnosis Date Diabetes mellitus (HCC) GERD (gastroesophageal reflux disease) Obesity AQUILES (obstructive sleep apnea) PONV (postoperative nausea and vomiting) ALLERGIES: ALLERGIES ALLERGIES Allergen Reactions Sulfa (Sulfonamide * Hives, Rash MEDICATIONS: CURRENT MEDICATIONS Current Outpatient Medications Medication Sig keTORolac (TORADOL) 10 mg tablet Take 1 tablet by mouth every 6 hours as needed. with food. aspirin 325 mg tablet Take 1 tablet by mouth once daily. promethazine (PHENERGAN) 12.5 mg tablet Take 1 tablet by mouth every 8 hours as needed for up to 10 days. DEXCOM G7 TRADER 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 DEXCOM G7 SENSOR eduin [...] for this visit. Surgical: PAST SURGICAL HISTORY PAST SURGICAL HISTORY Procedure Laterality Date PAST SURGICAL HISTORY OF Bilateral foot x2 PAST SURGICAL HISTORY OF Right shoulder REMOVAL GALLBLADDER PHYSICAL EXAM: The patient is alert and oriented x 3 and in no apparent acute distress. Patient presents with a clean dry intact BK fiberglass cast and dressings on the right lower extremity [...] Satisfactory postop progress right foot status post 3 weeks appropriate to continue as is TREATMENT TODAY: Second postop visit right foot Discussed results of clinical examination with the patient and family in detail upon removal of the BK fiberglass cast and dressings. Painted incision with Betadine. Reapplied a bulky dry sterile dressing sterile 4 x 4's Kerlix followed by well-padded BK fiberglass nonweightbearing cast dorsiflexed to resistance and inverted. I will see the patient back in approximately 3 weeks for reevaluation with final cast. Continue nonweightbearing until further advised. We will begin progressive partial weightbearing next visit in an Aircast CAM Walker boot and refer to physical therapy. SIGNATURE: Sean Mata DPM documented in this encounter [facility] 01-09-2025 Note HNO ID: [id number] Author: SHAYLEE CONCEPCION MA Service: ? Author Type: Jig Grinder Type: Progress Notes Filed: 01/09/2025 11:22 Note [...] follow up as scheduled or as needed. [facility] 01-09-2025 History of Present illness Narrative [...] or as needed. documented in this encounter [facility] 01-09-2025 Note HNO ID: [id number] Author: SEAN MATA DPM Service: ? Author Type: Physician Type: Progress Notes Filed: 01/09/2025 10:55 Note Text: PRIMARY SERVICE: [facility] Podiat[facility] SUBJECTIVE: Patient is seen today for [...] for up to 10 days. DEXCOM G7 TRADER 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 DEXCOM G7 SENSOR eduin [...] SERVICE: 01/09/2025 TIME of SERVICE: 10:52 AM [facility] 01-09-2025 History of Present illness Narrative Images from the original note were not included. PRIMARY SERVICE: [facility] Podiatry SUBJECTIVE: Patient is seen today for [...] for up to 10 days. DEXCOM G7 TRADER 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 DEXCOM G7 SENSOR eduin [...] SERVICE: 10:52 AM documented in this encounter [facility] 01-02-2025 Telephone encounter Note Called patient at [phone] to return call regarding pain management. I spoke with the patient. Advised I sent a prescription over for her electronically for Toradol 10 mg tablets take 2 right away the 1 every 6 hours with food until gone in addition to the Percocet and the Phenergan. Recommend 2 Percocet every 4-6 hours due to her BMI. Sean Mata DPM [facility] 01-02-2025 Miscellaneous Notes Called patient at [phone] to return call regarding pain management. I spoke with the patient. Advised I sent a prescription over for her electronically for Toradol 10 mg tablets take 2 right away the 1 every 6 hours with food until gone in addition to the Percocet and the Phenergan. Recommend 2 Percocet every 4-6 hours due to her BMI. Sean Mata DPM documented in this encounter [facility] 12-31-2024 Miscellaneous Notes Called patient at her Lonnie's cell number at [phone] to check on postop progress. Received voicemail. [...] calling: self Call patient at: at home [phone] (home) [phone] (cell) Was an appointment scheduled: No Closing statement: Results or non-symptom based questions: Thank you for calling [facility], your call will be returned within the next business day. Marva Kang Pss documented in this encounter [facility] 12-31-2024 Telephone encounter Note Called patient at her Lonnie's cell number at [phone] to check on postop progress. Received voicemail. [...] Mata DPM [facility] Work Phone: 12-31-2024 Telephone encounter Note Message has been sent directly to Dr Mata's phone. [facility] 12-31-2024 Telephone encounter Note Noel is calling [...] calling: self Call patient at: at home [phone] (home) [phone] (cell) Was an appointment scheduled: No Closing statement: Results or non-symptom based questions: Thank you for calling [facility], your call will be returned within the next business day. Marva Almeida [facility] 12-31-2024 Note HNO ID: [id number] Author: ESTELLA GIBBONS AA Service: Anesthesiology Author Type: Trimmer Loader Type: Anesthesia Procedure Notes Filed: 12/31/2024 09:57 [...] December 31, 2024 TIME: 9:57 AM CSN: [id number] [facility] 12-31-2024 Note HNO ID: [id number] Author: ESTELLA GIBBONS AA Service: Anesthesiology Author Type: Trimmer Loader Type: Anesthesia Procedure Notes Filed: 12/31/2024 08:20 [...] Successful intubation technique: video laryngoscopy Devices used: [employer] Endotracheal tube insertion site: oral Blade: Jeanette Blade size: #3 ETT size (mm): 7.0 Measured from: teeth Measurement (cm): 21 Placement verified by: chest auscultation and capnometry Cormack-Lehane Classification: grade I - full view of glottis Number of attempts at approach: 1 Airway not difficult Comments Easy mask vent with 2 person technique and large red OA. Grade 1 view with Gallardo , lots of redundant tissue. SIGNATURE: CLAUDE Paula PATIENT NAME: Noel Paul DATE: December 31, 2024 TIME: 8:18 AM CSN: [id number] [facility] 12-28-2024 History and physical note Images from the original note were not included. [facility] HISTORY AND PHYSICAL EXAMINATION SERVICE DATE: 12/28/2024 SERVICE TIME: 10:08 AM PRIMARY CARE PHYSICIAN: Monique Emmanuel CNP, BIOMATERIALS ENGINEER REASON FOR VISIT: Noel Paul is a [...] STOP-Bang Score: STOP-Bang Score: 0 (Awaiting CPAP) [id number] Score: Age: <65 Sex: female [id number] Score: ARISCAT Score: Age: <=50 Preoperative SpO2: [...] chart review and guidance on proceeding at [place]. Per Dr Goetz, patient may proceed as scheduled at [place] CONSULTS: Anesthesia Consult chart review The Following [...] AT BEDTIME NEEDED Taking Yes DEXCOM G7 TRADER 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 DEXCOM G7 SENSOR eduin [...] fevers. Neuro: No history of TIA's, stroke, FURNACE INSTALLER tumor, impaired sensorium, hemiplegia, paraplegia or quadraplegia. No neurological symptoms or problems. Respiratory: No history of current cough or dyspnea, or pneumonia in the past 6 weeks. No history of respiratory/pulmonary symptoms or problems. Cardiovascular: No history of HTN requiring medication, no history of angina, CHF, [place], cardiac surgery or stents. Denies rest pain, [...] Noel Paul DATE: 12/28/2024 TIME: 10:21 AM [facility] 12-28-2024 History and physical note Images from [...] STOP-Bang Score: STOP-Bang Score: 0 (Awaiting CPAP) [id number] Score: Age: <65 Sex: female [id number] Score: ARISCAT Score: Age: <=50 Preoperative SpO2: [...] chart review and guidance on proceeding at [place]. Per Dr Goetz, patient may proceed as scheduled at [place] CONSULTS: Anesthesia Consult chart review The Following [...] AT BEDTIME NEEDED Taking Yes DEXCOM G7 TRADER 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 DEXCOM G7 SENSOR eduin [...] fevers. Neuro: No history of TIA's, stroke, FURNACE INSTALLER tumor, impaired sensorium, hemiplegia, paraplegia or quadraplegia. No neurological symptoms or problems. Respiratory: No history of current cough or dyspnea, or pneumonia in the past 6 weeks. No history of respiratory/pulmonary symptoms or problems. Cardiovascular: No history of HTN requiring medication, no history of angina, CHF, [place], cardiac surgery or stents. Denies rest pain, [...] date range. HgbA1c 10/15/[address]% CT Neck 1224 1. There is mild induration of the [...] TIME: 10:21 AM documented in this encounter [facility] 12-26-2024 Instructions Ary Rocha APRN.IRENE - 12/26/2024 7:49 AM EST Images from the original note were not included. [facility] PATIENT PREOPERATIVE INSTRUCTIONS Sean Mata,* has scheduled you for your procedure at this surgery center: [facility]: [phone] --[id number] [place] [address]. Please read below carefully for your personalized [...] office. If you are currently using a [id number]-cyqi injectable or oral medication for diabetes or [...] Procedures: - YOU MUST HAVE A RESPONSIBLE CUSTOMER CARE REPRESENTATIVE TAKE YOU HOME. A COIL WINDER REPAIR OR WELLNESS PROGRAM COORDINATOR CANNOT BE MADE A RESPONSIBLE CUSTOMER CARE REPRESENTATIVE. - We recommend that a responsible person [...] Advance Directive, please fax a copy to [phone] or email to for it to be [...] chart that day. 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 documented in this encounter [facility] 12-12-2024 Note HNO ID: [id number] Author: SEAN MATA DPM Service: ? Author Type: Physician Type: Progress Notes Filed: 12/12/2024 10:46 Note Text: [facility] Department of Orthopedics [facility] Orthopedic Surgery Name: Noel Paul Date of [...] Current Outpatient Medications Medication Sig DEXCOM G7 TRADER 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 DEXCOM G7 SENSOR eduin [...] We will complete scheduling. Sean Mata DPM [facility] 12-12-2024 History of Present illness Narrative [facility] Department of Orthopedics [facility] Orthopedic Surgery Name: Noel Paul Date of [...] Current Outpatient Medications Medication Sig DEXCOM G7 TRADER 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 DEXCOM G7 SENSOR eduin [...] Sean Mata DPM documented in this encounter [facility] 12-12-2024 Note HNO ID: [id number] Author: JAMAL REYNOSO RT(R) Service: ? Author [...] PATIENT PRESENTS WITH AN IMPLANTABLE OR ATTACHED PARENT AIDE: No RADIOLOGY DEPARTMENT: General X-ray: Exam(s) Completed: Lower Extremity X-Ray(s): Foot, Right PERIPHERAL IV DATA: Not applicable SIGNED BY: RT Manju(R) December 12, 2024 9:29 AM [facility] 12-12-2024 History of Present illness Narrative [...] PATIENT PRESENTS WITH AN IMPLANTABLE OR ATTACHED PARENT AIDE: No RADIOLOGY DEPARTMENT: General X-ray: Exam(s) Completed: Lower Extremity X-Ray(s): Foot, Right PERIPHERAL IV DATA: Not applicable SIGNED BY: RT Manju(R) December 12, 2024 9:29 AM documented in this encounter [facility] 11-26-2024 Note Orthopedic Surgery Subjective Pain of [...] 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 Matthias Her MD Orthopedic Surgery, [employer] [facility] 11/26/2024 [facility] 10-24-2024 History of Present illness Narrative Patient: [...] today for follow-up of MRI results at [facility]. Allergies: Allergies Allergen Reactions Sulfa Antibiotics Rash [...] diabetes mellitus without complication, 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 carman insulin use ([facility]) 3. Accessory navicular bone of right [...] need more invasive surgery. Will refer to [facility] Dr. [place] for referral and consultation at tertiary care center secondary to more advanced type procedure may be necessary. Will refer for consultation and possible further intervention Pato Avelar DPM documented in this encounter [facility] 10-04-2024 History of Present illness Narrative [...] History: Past Medical History: Diagnosis Date Diabetes ([facility]) Ear problems GERD (gastroesophageal reflux disease) [...] Pato Avelar DPM documented in this encounter [facility] 09-20-2024 History of Present illness Narrative [...] History: Past Medical History: Diagnosis Date Diabetes ([facility]) Ear problems GERD (gastroesophageal reflux disease) [...] Pato Avelar DPM documented in this encounter [facility] 09-07-2024 Telephone encounter Note Has been called for possible increase in pain medication and will switch from hydrocodone to oxycodone and sent to [facility] and [place] [facility] 09-07-2024 Miscellaneous Notes Has been called for possible increase in pain medication and will switch from hydrocodone to oxycodone and sent to [facility] and [place] documented in this encounter [facility] 08-30-2024 History of Present illness Narrative [...] History: Past Medical History: Diagnosis Date Diabetes ([facility]) Ear problems GERD (gastroesophageal reflux disease) [...] cool tibia to toes b/l NEURO: 5.07 [place] Deyanira monofilament test positive to digits and [...] diabetes mellitus without complication, 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 carman insulin use ([facility]) 3. Heel spur, left 4. Plantar [...] alternatives, benefits, post op complications and terminal carman expectations were discussed including but not limited to: infection,bone infection,wound dehiscence hardware failure and irritation,wound dehiscence,delay union/mal union/non union of bone. RSDS,neuroma,duty limitations,DVT/PE, [place],nerve damage, scar, loss of sensation, swelling. Pt [...] Pato Avelar DPM documented in this encounter [facility] 08-02-2024 History of Present illness Narrative [...] History: Past Medical History: Diagnosis Date Diabetes (CMS/[facility]) Ear problems GERD (gastroesophageal reflux disease) [...] 2 diabetes mellitus without complication, 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 [place] [facility] [place] ([facility]) PLAN Patient to continue with oral [...] Patient may continue with conservative treatments including sstb-dsl-qkzqpdt anti-inflammatories and other treatments suggested today. Patient may want to be scheduled for surgical intervention in the near future. Patient had a right modified Kidner procedure to the right foot with removal of accessory navicular with postoperative pain medicine of [place] and will see family Lien for preop clearance. This condition is unrelated to prior condition Pato Avelar DPM documented in this encounter [facility] 07-31-2024 Telephone encounter Note Pt called back, would like scanned at next appt [facility] 07-31-2024 Miscellaneous Notes Pt called back, would like scanned at next appt Left vm to go over benefits Per call to Elda CHILDRESS @ [phone] with Denise Marroquin - I verified the policy is current and active with an effective date of 11/28/2020. L3020 is covered at 100% as both the ded and oop have been met. There are no frequency limits, no exclusions, and no prior authorizations needed. Ref#: [id number]. Please precertify for custom orthotics for the diagnosis of Posterior tibial tendinitis bilaterally documented in this encounter [facility] 07-31-2024 Telephone encounter Note Left vm to go over benefits [facility] 07-27-2024 Telephone encounter Note Per call to Elda CHILDRESS @ [phone] with Denise Marroquin - I verified the policy is current and active with an effective date of 11/28/2020. L3020 is covered at 100% as both the ded and oop have been met. There are no frequency limits, no exclusions, and no prior authorizations needed. Ref#: [id number]. [facility] 07-24-2024 History of Present illness Narrative [...] the next 7-10 days. Patient will use bycp-uza-zevflus ibuprofen 3 times a day with food to help decrease inflammation. The patient may also benefit from a mouth guard. We will consider referral to Dr. Adali SALAZAR if there is no improvement documented in this encounter [facility] 07-19-2024 Telephone encounter Note Please precertify for custom orthotics for the diagnosis of Posterior tibial tendinitis bilaterally [facility] 07-19-2024 History of Present illness Narrative Patient: Noel Paul : 1990 PCP: [facility] Provider MD Milad SUBJECTIVE This is a [...] History: Past Medical History: Diagnosis Date Diabetes ([facility]) Medications: Current Outpatient Medications: cholecalciferol (Vitamin [...] 2 diabetes mellitus without complication, 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 [place] [facility] [place] [facility] ([facility]) 3. Accessory navicular bone of right [...] Pato Avelar DPM documented in this encounter [facility] 03-22-2022 Evaluation note Encounter Date Diagnosis [...] no improvement in 5 to 7 days. 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 Type 2 diabetes mellitus without complication, 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 [place] [facility] insulin use (CMS/HCC) Heel spur, left Plantar fasciitis Plantar fascial fibromatosis Contracture of left ankle Contracture of right ankle documented in this encounter [facility]* Diagnosis 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 documented in this encounter [facility]* Diagnosis 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 Contracture of right ankle Type 2 diabetes mellitus without complication, 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 carman insulin use (CMS/HCC) documented in this encounter [facility]* Diagnosis 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 Contracture of right ankle documented in this encounter [facility] note* Diagnosis 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 Contracture of right ankle Stress fracture of right foot, initial encounter documented in this encounter [facility]* Diagnosis Stress fracture of right foot, initial encounter- Primary Type 2 diabetes mellitus without complication, 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 [place] [facility] [place] use (CMS/HCC) Accessory navicular bone of right foot documented in this encounter [facility]Evaluation note* Diagnosis Posterior tibial tendonitis of right leg- Primary Accessory navicular bone of left foot Type 2 diabetes mellitus without complication, 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 carman insulin use (CMS/HCC) Accessory navicular bone of right foot documented in this encounter [facility] note* Diagnosis Arthralgia of left temporomandibular joint- Primary Left ear pain Unspecified otalgia Chronic rhinitis Fullness in ear, left documented in this encounter [facility] note* Diagnosis 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 Posterior tibial tendonitis of right leg Type 2 diabetes mellitus without complication, 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 [place] [facility] use (CMS/HCC) documented in this encounter [facility] note* Diagnosis Accessory navicular bone of left foot- Primary documented in this encounter [facility]Evaluation note* Diagnosis Pain in right foot- Primary Pain in limb Accessory navicular bone of right foot [facility] Pain Generalized pain [facility] Diagnosis 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) Assessment: diet and exercise encouraged BMI 62 [...] up with PCP [facility] Diagnosis Pain- Primary Generalized pain Pain Generalized pain Pre-op evaluation- Primary Preoperative examination, unspecified Gastroesophageal reflux disease, 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 esophagitis present Diabetes mellitus without complication (HCC) Type II or unspecified type diabetes mellitus without mention of complication, not stated as uncontrolled BMI 60.0-69.9, adult ([facility]) Body Mass Index 60.0-69.9, adult AQUILES (obstructive sleep apnea) Obstructive sleep apnea (adult) (pediatric) documented in this encounter [facility] note* Diagnosis Pre-op evaluation- Primary Preoperative examination, unspecified Gastroesophageal reflux disease, 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 esophagitis present Diabetes mellitus without complication (HCC) Type II or unspecified type diabetes mellitus without mention of complication, not stated as uncontrolled BMI 60.0-69.9, adult ([facility]) Body Mass Index 60.0-69.9, adult AQUILES (obstructive sleep apnea) Obstructive sleep apnea (adult) (pediatric) S/P foot surgery, right- Primary Accessory navicular bone of right foot documented in this encounter [facility] note* Diagnosis Pre-op evaluation- Primary Preoperative examination, unspecified Gastroesophageal reflux disease, 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 esophagitis present Diabetes mellitus without complication (HCC) Type II or unspecified type diabetes mellitus without mention of complication, not stated as uncontrolled BMI 60.0-69.9, adult ([facility]) Body Mass Index 60.0-69.9, adult AQUILES (obstructive sleep apnea) Obstructive sleep apnea (adult) (pediatric) S/P foot surgery, right- Primary documented in this encounter [facility] note* Diagnosis Pre-op evaluation- Primary Preoperative examination, unspecified Gastroesophageal reflux disease, 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 esophagitis present Diabetes mellitus without complication (HCC) Type II or unspecified type diabetes mellitus without mention of complication, not stated as uncontrolled BMI 60.0-69.9, adult ([facility]) Body Mass Index 60.0-69.9, adult AQUILES (obstructive sleep apnea) Obstructive sleep apnea (adult) (pediatric) S/P foot surgery, right- Primary Accessory navicular bone of right foot documented in this encounter [facility] note* Diagnosis Pre-op evaluation- Primary Preoperative examination, unspecified Gastroesophageal reflux disease, 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 esophagitis present Diabetes mellitus without complication (HCC) Type II or unspecified type diabetes mellitus without mention of complication, not stated as uncontrolled BMI 60.0-69.9, adult ([facility]) Body Mass Index 60.0-69.9, adult AQUILES (obstructive sleep apnea) Obstructive sleep apnea (adult) (pediatric) S/P foot surgery, right- Primary documented in this encounter [facility] general Narrative - Reported* Type Description Date Medical History Acquired hypothyroidism Medical History vitamin D deficiency Surgical History cholecystectomy Hospitalization History No Hospitalization histo ry information [employer] Other History of Present illness Narrative* Pato Avelar, DPM - 09/13/2024 3:20 PM EDT Patient: Noel [...] History: Past Medical History: Diagnosis Date Diabetes ([facility]) Ear problems GERD (gastroesophageal reflux disease) [...] diabetes mellitus without complication, 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 carman insulin use ([facility]) PLAN Patient to keep dry sterile [...] patient Pato Avelar DPM documented in this [facility] course Narrative No data available for this section [facility] Discharge instructions No data available for this section [facility] Discharge instructions Additional Instructions DISCHARGE [...] operative site FOLLOW UP Phone numbers: Office [phone] [ ][facility] Work Phone: Progress note No data available for this section [facility] for referral (narrative)* Diagnostic Procedure Only (Routine) - Closed Specialty Diagnoses / Procedures Referred By Contac t Referred To Contact XR IMAGING Diagnoses Pain Procedures XR FOOT GENERAL 3V AP/LAT/OBL RIGHT RADEX FOOT COMPLETE MINIMUM 3 VIEWS Sean Mata DPM [id number] [place] [address] [place] [id number] Referral ID Status Reason Start Date Expiration Date V isits Requested Visits Authorized [id number] Closed Auto-Generate d Referral 12/05/2024 01/04/2026 1 1 [facility] for referral (narrative)* Diagnostic Procedure Only (Routine) - Closed Specialty Diagnoses / Procedures Referred By Contac t Referred To Contact XR IMAGING Diagnoses Pain Procedures XR FOOT GENERAL 3V AP/LAT/OBL RIGHT RADEX FOOT COMPLETE MINIMUM 3 VIEWS Sean Mata DPM [phone] [place] [address] [place] [id number] Referral ID Status Reason Start Date Expiration Date V isits Requested Visits Authorized [id number] Closed Auto-Generate d Referral 12/05/2024 01/04/2026 1 1 [facility] for visit Narrative* Diagnostic Procedure Only (Routine) - Closed Specialty Diagnoses / Procedures Referred By Alex t Referred To Contact XR IMAGING Diagnoses Pain Procedures XR FOOT GENERAL 3V AP/LAT/OBL RIGHT RADEX FOOT COMPLETE MINIMUM 3 VIEWS Sean Mata DPM [phone] [place] [address] [place] [id number] Referral ID Status Reason Start Date Expiration Date V isits Requested Visits Authorized [id number] Closed Auto-Generate d Referral 12/05/2024 01/04/2026 1 1 [facility] Summary Purpose Family History Relationship Condition Age at Onset Recorded Date/T luis alfredo Not Specified Unknown Heart disease Unknown Relationship Condition Age at Onset Recorded Date/T luis alfredo mother Unknown Heart disease Unknown Advance Directives Advance Directive Response Recorded Date/ Time Advance Directives No February 20 1:53pm Chief Complaint and Reason for Visit Chief Complaint Right shoulder pain, s/p lifting heavy object M25.511 - Pain in right shoulder Chief Complaint Right shoulder pain, s/p lifting heavy object M25.511 - Pain in right shoulder Left foot accessory navicular w/ type 2 diabetes Chief Complaint Admit Date ingrown nail February 05, 2025 4:4 4pm Reason for Referral Specialty Diagnoses / Procedures Referred By Alex gamboa Referred To Contact Diagnoses Accessory navicular bone of right foot Pato Avelar DPM [address] [address] Referral ID Status Reason Start Date Expiration Date V isits Requested Visits Authorized [id number] Pending Review 09/07/2024 03/06/2025 1 1 Additional [...] CREATED AUTHOR AUTHOR'S ORGANIZ ATION 05/25/2024 [facility] DATE CREATED AUTHOR AUTHOR'S ORGANIZ ATION 07/01/2024 [facility] EPIC DATE CREATED AUTHOR AUTHOR'S ORGANIZ ATION 09/12/2024 [facility] DATE CREATED AUTHOR AUTHOR'S ORGANIZ ATION 09/13/2024 [facility] DATE CREATED AUTHOR AUTHOR'S ORGANIZ ATION 09/15/2024 [facility] DATE CREATED AUTHOR AUTHOR'S ORGANIZ ATION 10/27/2024 [facility] EPIC DATE CREATED AUTHOR AUTHOR'S ORGANIZ ATION 12/09/2024 [facility] DATE CREATED AUTHOR AUTHOR'S ORGANIZ ATION 01/25/2025 [facility] Care Teams (unrecognized sec tion and [...] May 16, 2024 End: May 16, 2024 [employer] 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 Start Date End Date Erich Garcia MD [address] [place] [phone] PCP - General Family Medicine 07/24/24 Monique Emmanuel MD [address] [place] [phone] Referring Physician Family Medicine 03/29/24 Monique Emmanuel MD [address] [place] [address] Referring Physician Family Medicine 07/24/24 Jaime Camargo DO [address] [place] [address] Otolaryngology 07/24/24 [employer] 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 Start Date End Date Erich Garcia MD [address] [place] [phone] PCP - General Family Medicine 07/24/24 Monique Emmanuel MD [address] [place] [address]99 Referring Physician Family Medicine 03/29/24 Monique Emmanuel MD [address] [place] [address] Referring Physician Family Medicine 07/24/24 Jaime Camargo DO [address] [place] [address] Otolaryngology 07/24/24 [employer] 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 Start Date End Date Erich Garcia MD [address] [place] [phone] PCP - General Family Medicine 07/24/24 Monique Emmanuel MD [address] [place] [address] Referring Physician Family Medicine 03/29/24 Monique Emmanuel MD [address] [place] [phone] Referring Physician Family Medicine 07/24/24 Jaime Camargo DO [address] [place] [address] Otolaryngology 07/24/24 [employer] 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 Start Date End Date Erich Garcia MD [address] [place] [phone] PCP - General Family Medicine 07/24/24 Monique Emmanuel MD [address] [place] [phone] Referring Physician Family Medicine 03/29/24 Monique Emmanuel MD [address] [place] [address] [phone] Referring Physician Family Medicine 07/24/24 Jaime Camargo DO [address] [place] [address] Otolaryngology 07/24/24 [employer] 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 Start Date End Date Erich Garcia MD [address] [place] [phone] PCP - General Family Medicine 07/24/24 Monique Emmanuel MD [address] [place] [address] Referring Physician Family Medicine 03/29/24 Monique Emmanuel MD [address] [place] [phone] Referring Physician Family Medicine 07/24/24 Jaime Camargo DO [address] [place] [address] Otolaryngology 07/24/24 [employer] 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 Start Date End Date Erich Garcia MD [address] [place] [phone] PCP - General Family Medicine 07/24/24 Monique Emmanuel MD [address] [place] [address] Referring Physician Family Medicine 03/29/24 Monique Emmanuel MD [address] [place] [address] [phone] Referring Physician Family Medicine 07/24/24 Jaime Camargo DO [address] [place] [address] Otolaryngology 07/24/24 [employer] 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 Start Date End Date Erich Garcia MD [address] [place] [phone] PCP - General Family Medicine 07/24/24 Monique Emmanuel MD [address] [place] [address] Referring Physician Family Medicine 03/29/24 Monique Emmanuel MD [address] [place] [address] [phone] Referring Physician Family Medicine 07/24/24 Jaime Camargo DO [address] [place] [address] Otolaryngology 07/24/24 [employer] 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 Start Date End Date Erich Garcia MD [address] [place] [phone] PCP - General Family Medicine 07/24/24 Monique Emmanuel MD [address] [place] [address] Referring Physician Family Medicine 03/29/24 Monique Emmanuel MD [address] [place] [phone] Referring Physician Family Medicine 07/24/24 Jaime Camargo DO [address] [place] [address] Otolaryngology 07/24/24 [employer] 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 Start Date End Date Unallocated, Noms MD [place] [address] [place] [address] PCP - General Family Medicine 03/29/24 Monique Emmanuel MD [address] [place] [address] Referring Physician Family Medicine 03/29/24 [employer] 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 Start Date End Date Erich Garcia MD [address] [place] [phone] PCP - General Family Medicine 07/24/24 Monique Emmanuel MD [facility] [place] [address] Referring Physician Family Medicine 03/29/24 Monique Emmanuel MD [address] [place] [phone] Referring Physician Family Medicine 07/24/24 Jaime Camargo DO [address] [facility] [place] [address] Otolaryngology 07/24/24 [employer] 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 Start Date End Date Unallocated, Noms MD [place] [address] [place] [address] PCP - General Family Medicine 03/29/24 Monique Emmanuel MD [address] [place] [phone] Referring Physician Family Medicine 03/29/24 [employer] 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 Start Date End Date Erich Garcia MD [address] [place] [phone] PCP - General Family Medicine 07/24/24 Monique Emmanuel MD [address] [place] [address] Referring Physician Family Medicine 03/29/24 Monique Emmanuel MD [address] [place] [address] Referring Physician Family Medicine 07/24/24 Jaime Camargo DO [address] [place] [address] Otolaryngology 07/24/24 [employer] 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 Start Date End Date Erich Garcia MD [address] [place] [phone] PCP - General Family Medicine 07/24/24 Monique Emmanuel MD [address] [place] [address] Referring Physician Family Medicine 03/29/24 Monique Emmanuel MD [address] [place] [phone] Referring Physician Family Medicine 07/24/24 Jaime Camargo DO [address] [place] [address] Otolaryngology 07/24/24 [employer] 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 Start Date End Date Erich Garcia MD [address] [place] [phone] PCP - General Family Medicine 07/24/24 Monique Emmanuel MD [address] [place] [phone] Referring Physician Family Medicine 03/29/24 Monique Emmanuel MD [address] [place] [phone] Referring Physician Family Medicine 07/24/24 Jaime Camargo DO [address] [place] [address] Otolaryngology 07/24/24 [employer] 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 Start Date End Date Unallocated, Noms MD [place] [address] [place] [address] PCP - General Family Medicine 03/29/24 07/23/24 [place] [address] [place] [phone] PCP - General Family Medicine 07/24/24 Monique Emmanuel MD [address] [place] [phone] Referring Physician Family Medicine 03/29/24 Monique Emmanuel MD [address] [place] [phone] Referring Physician Family Medicine 07/24/24 Jaime Camargo DO [address] [place] [address] Otolaryngology 07/24/24 [employer] 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 Start Date End Date Monique Emmanuel CNP [address] [place] [address] PCP - General Internal Medicine 12/17/24 [employer] 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 Start Date End Date Monique Emmanuel CNP [address] [place] [address] PCP - General Internal Medicine 12/17/24 [employer] 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 Start Date End Date Monique Emmanuel CNP [address] [place] [address] PCP - General Internal Medicine 12/17/24 [employer] 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 Start Date End Date Monique Emmanuel CNP [address] [place] [address] PCP - General Internal Medicine 12/17/24 [employer] 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 Start Date End Date Monique Emmanuel CNP [address] [place] [address] PCP - General Internal Medicine 12/17/24 [employer] 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 Start Date End Date Monique Emmanuel CNP [address] [place] [address] PCP - General Internal Medicine 12/17/24 [employer] 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 Start Date End Date Monique Emmanuel CNP [address] [place] [address] PCP - General Internal Medicine 12/17/24 [employer] 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 Start Date End Date Monique Emmanuel CNP [address] [place] [address] PCP - General Internal Medicine 12/17/24 Team Status: Inactive Member Role Status Dates Monique Emmanuel , IMPORT EXPORT AGENT-C Primary Care Provider Active Start: February 05, 2025 End: February 05, 2025 Radha Kong APRN Attending Provider Active Start: February 05, 2025 End: February 05, 2025 Goals (unrecognized section and content) Goals may be documented in a n alternate section Source Comments (unrecognize d section and content) In the event this informatio n is protected by the Federal Confidentiality of Alcohol and Drug Abuse Patient Records regulations: The Federal rules restrict any use of the information to criminally investigate or prosecute any alcohol or drug abuse patient.[facility] the event this information is protected by the Federal Confidentiality of Alcohol and Drug Abuse Patient Records regulations: The Federal rules restrict any use of the information to criminally investigate or prosecute any alcohol or drug abuse patient.[facility] the event this information is protected by the Federal Confidentiality of Alcohol and Drug Abuse Patient Records regulations: The Federal rules restrict any use of the information to criminally investigate or prosecute any alcohol or drug abuse patient.[facility] the event this information is protected by the Federal Confidentiality of Alcohol and Drug Abuse Patient Records regulations: The Federal rules restrict any use of the information to criminally investigate or prosecute any alcohol or drug abuse patient.[facility] the event this information is protected by the Federal Confidentiality of Alcohol and Drug Abuse Patient Records regulations: The Federal rules restrict any use of the information to criminally investigate or prosecute any alcohol or drug abuse patient.[facility] the event this information is protected by the Federal Confidentiality of Alcohol and Drug Abuse Patient Records regulations: The Federal rules restrict any use of the information to criminally investigate or prosecute any alcohol or drug abuse patient.[facility]stownIn the event this information is protected by the Federal Confidentiality of Alcohol and Drug Abuse Patient Records regulations: The Federal rules restrict any use of the information to criminally investigate or prosecute any alcohol or drug abuse patient.[facility]stownIn the event this information is protected by the Federal Confidentiality of Alcohol and Drug Abuse Patient Records regulations: The Federal rules restrict any use of the information to criminally investigate or prosecute any alcohol or drug abuse patient.[facility]stownIn the event this information is protected by the Federal Confidentiality of Alcohol and Drug Abuse Patient Records regulations: The Federal rules restrict any use of the information to criminally investigate or prosecute any alcohol or drug abuse patient.[facility]stownIn the event this information is protected by the Federal Confidentiality of Alcohol and Drug Abuse Patient Records regulations: The Federal rules restrict any use of the information to criminally investigate or prosecute any alcohol or drug abuse patient.[facility]stownIn the event this information is protected by the Federal Confidentiality of Alcohol and Drug Abuse Patient Records regulations: The Federal rules restrict any use of the information to criminally investigate or prosecute any alcohol or drug abuse patient.[facility]stownIn the event this information is protected by the Federal Confidentiality of Alcohol and Drug Abuse Patient Records regulations: The Federal rules restrict any use of the information to criminally investigate or prosecute any alcohol or drug abuse patient.[facility]stownIn the event this information is protected by the Federal Confidentiality of Alcohol and Drug Abuse Patient Records regulations: The Federal rules restrict any use of the information to criminally investigate or prosecute any alcohol or drug abuse patient.[facility] FOR RECORDS PERTAINING TO PATIENTS WHO ARE [...] BE BASED ON THE PRIMARY CLINICAL RECORDS. [employer] [facility]. provides no warranty or guarantee of the accuracy or completeness of information in this document.
[2025-02-11 11:32] LABS: Basophils Absolute Auto 0.1 10^3/uL (0.0-0.1); Basophils Percent Auto 0.7 % (0.2-2.0); Eosinophils Absolute Auto 0.4 10^3/uL (0.0-0.7); Eosinophils Percent Auto 3.4 % (0.9-7.0); Hematocrit 41.6 % (36.0-48.0); Hemoglobin 12.6 g/dL (12.0-16.0); Immature Granulocytes Abs Auto 0.05 10^3/uL (0.00-0.03); Immature Granulocytes Pct Auto 0.5 % (0.0-0.5); Lymphocytes Absolute Auto 2.2 10^3/uL (1.2-3.8); Lymphocytes Percent Auto 20.6 % (20.5-60.0); Mean Corpuscular HGB Conc 30.3 g/dL (29.9-35.2); Mean Corpuscular Hemoglobin 25.2 pg (26.7-34.0); Mean Corpuscular Volume 83.2 fL (81.0-99.0); Mean Platelet Volume 9.2 fL (9.5-13.5); Monocytes Absolute Auto 0.6 10^3/uL (0.3-0.8); Monocytes Percent Auto 5.3 % (1.7-12.0); Neutrophils Absolute Auto 7.6 10^3/uL (1.4-6.5); Neutrophils Percent Auto 69.5 % (43.0-75.0); Platelet Count 343 10^3/uL (150-450); Red Cell Distribution Width 15.1 % (11.0-15.0); White Blood Count 10.9 10^3/uL (4.0-11.0)
[2025-02-11 11:44] LABS: Estimated Average Glucose 151 mg/dL; Glycohemoglobin A1C 6.9 % (4.5-6.2)
== END 2025-02-11 11:16 | disposition home or self-care (01) ==
LOC: LAB 11:16
PROVIDERS: PCP Nurse Practitioner Family; Visit Provider Nurse Practitioner Family
DX: R53.83 Other fatigue (principal)
CPT/HCPCS: 36415; 83036; 83540; 85025

== ENCOUNTER 2025-02-20 14:32 | Outpatient (RCR) | payer BC, SELFPAY | END 2025-04-24 07:21 | disposition home or self-care (01) | LOC: PT 14:32 | PROVIDERS: PCP Nurse Practitioner Family | DX: M79.671 Pain in right foot (principal); Z98.890 Other specified postprocedural states | CPT/HCPCS: 97026; 97110; 97112; 97113; 97140; 97162; 97164 ==

== ENCOUNTER 2025-03-05 19:57 | Emergency (ER) | payer BC, SELFPAY ==
[2025-03-05 20:00] VITALS: BP 150/86; PULSE 76; TEMP 36.6; O2SAT 96; BMI 61.5
--- OUTSIDE RECORDS SUMMARY | 2025-03-05 20:05 | XMS_ITS | CCD ---
Author Organization [facility] Care Team Providers Care Police Booking Officer Name Role Phone Monique Dudley Unavailable MONIQUE [...] Attending Provider LORI Emmanuel Primary Care Provider [phone] MONIQUE EMMANUEL Primary Care Physician Pato Avelar Referring Unavailable Pato Avelar Attending Unavailable Pato Avelar Admitting Unavailable SHITAL Avelar Attending Provider [phone] Monique Emmanuel Primary Care Unavailable Pato Avelar [...] Primary Care Provider Jaime Camargo DO Unavailable [phone] Brown, DPM Pato A Attending Unavailabl e [...] Unavailable Primary Care Provider Unavailabl e Lien CUSTODIAL OPERATIONS MANAGER, Monique S Primary Care Provider GERDA MATAER Attending Unavailable LIEN, MONIQUE S Primary Care Unavailable SELF Referring Unavailable ESPERANZA, CHRISTOPHER Referring Unavailable LIEN, MONIQUE S Primary Care Unavailable ESPERANZA, CHRISTOPHER Attending Unavailable ESPERANZA, CHRISTOPHER Referring Unavailable ESPERANZA, CHRISTOPHER Attending Unavailable LIEN, MONIQUE S Primary Care Unavailable SELF Referring Unavailable LIEN, MONIQUE S Primary Care Unavailable ESPERANZA, CHRISTOPHER Referring Unavailable LIEN, MONIQUE S Primary Care Unavailable LIEN, MONIQUE S Primary Care Unavailable ESPERANZA, CHRISTOPHER Attending Unavailable SELF Referring Unavailable ESPERANZA, CHRISTOPHER Referring Unavailable ESPERANZA, CHRISTOPHER Attending Unavailable SEAN MATA Admitting Unavailable LIEN MONIQUE S Primary Care Unavailable SELF Referring Unavailable SEAN MATA Referring Unavailable MONIQUE EMMANUEL S Primary Care Unavailable MONIQUE EMMANUEL S Primary Care Unavailable SELF Referring Unavailable Allergies Allergy Classification Reported Allergen(s) Allergy Type Date of Onset Reaction(s) Facility (1 source) Egg protein [facility] Other (1 source) Sulf-10 Drug allergy [facility] Timeful Other (1 source) Sulfonamides (Antibiotic) Drug allergy (disorder) 3 [facility] Rep[facility] (20 sources) Sulfonamides (Antibiotic); Translations: [Sulfa (Sulfonamide Antibiotics)] Allergy to substance 4 Hives, Rash (5 sources) Egg Derived; Translations: [Egg Derived] Allergy to substance 4 [facility] (5 sources) Sulfonamides (Antibiotic); Translations: [sulfa drugs] Drug allergy [facility] (20 sources) Sulfonamides (Antibiotic) Drug Allergy 4 Rash, Hives [facility] Healthcare Medications Current Medications Medication Drug Class(es) Dates Sig (Normalized) Sig (Original) acetaminophen 325 mg / HYDROcodone bitartrate 5 mg oral tablet (2 sources) Opioid Agonist Start: 08-30-2024 End: 09-04-2024 take 1 tablet by mouth every eight hours as needed for pain HYDROcodone-aceta minophen ([place]) 5-325 MG tablet Indications: Pain Take 1 tablet by mouth every 8 (eight) hours if needed for moderate pain (PRN pain) for up to 5 days 15 tablet 08/30/2024 09/04/2024 Active acetaminophen 325 mg / oxyCODONE hydrochloride 5 mg oral tablet (20 sources) Opioid Agonist Start: 12-31-2024 End: 01-05-2025 [...] 2025 12:00am aspirin 325 mg oral tablet (12 sources) Platelet Aggregation Inhibitor, Nonsteroidal Anti-inflammatory Drug Start: 12-31-2024 End: 02-14-2025 take 1 tablet by mouth once daily aspirin 325 mg tablet Indications: Accessory navicular bone of right foot Take 1 tablet by mouth once daily. 45 tablet 12/31/2024 Active Blood-Glucose Sensor (Dexcom G7 Sensor) device (1 [...] once daily. Active DEXCOM G6 TRANSMITTER [place] (16 sources) Start: 09-03-2024 DEXCOM G6 TRANSMITTER [place] as directed. 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 G7 AUTOMOTIVE ENGINEERING TECHNICIAN misc (16 sources) Start: 09-20-2024 DEXCOM G7 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 09/20/2024 Active DEXCOM G7 SENSOR [place] (16 sources) Start: 12-12-2024 DEXCOM G7 SENSOR [place] 12/12/2024 Active glipiZIDE 5 mg oral tablet (17 sources) Sulfonylurea Start: 12-06-2024 glipiZIDE (GLUCOTROL) 5 mg tablet 12/06/2024 Active ketorolac tromethamine 10 mg oral tablet (11 sources) Nonsteroidal Anti-inflammatory Drug, Cyclooxygenase Inhibitor Start: [...] day at the same time 03/12/2024 Active Austin Sling (3 sources) Start: 02-27-2024 Austin Slin g Active 0 .Route 1 February 27, 2024 12:00am As directed Austin Sling unit (1 source) Start: 02-27-2024 Austin Slin g unit Active 0 .Route 1 [...] D deficiency] Onset: 08-19-2022 04-25-2024 Chronic Osteoarthritis (12 sources) Arthritis of right acromioclavicular joint; Translations: [...] Episodic Other nutritional; endocrine; and metabolic disorders (13 sources) Morbid obesity; Translations: [Body mass index [...] sources) Pancreatitis 02-08-2014 Episodic Residual codes; unclassified (13 sources) Obstructive sleep apnea syndrome; Translations: [Obstructive sleep apnea (adult) (pediatric)] Onset: 12-28-2024 12-28-2024 Chronic Residual codes; unclassified (2 sources) Pain; Translations: [Pain, unspecified] 12-12-2024 Episodic Residual codes; unclassified (7 sources) History of operative procedure on foot; [...] Stress fracture of right foot 10-04-2024 Unclassified (5 sources) History of operative procedure on foot 01-09-2025 Results Test Name Value Interpretation Reference Range [facility] CNPN Telephone (ORQ) MELCHORNOEL ([id number]) 1990 F [place] Date Time Provider Department 02/20/25 SEAN MATA During your visit today, we recorded the following information about you: Marva Bhardwaj 02/20/2025 4:08 PM Signed Bonilla from [facility] is calling Sean Mata DPM today to request weightbearing guide lines for patient PT CB [phone] ext [phone] FAX [phone] Patient has been identified by name and birthdate. Duration of symptoms: N/A Person calling: caregiver: Call patient at: [phone] (home) [phone] (cell) Was an appointment scheduled: No Closing statement: Results or non-symptom based questions: Thank you for calling [facility], your call will be returned within the next business day. Marva Chris Harris OCCA 02/20/2025 4:21 PM Signed Called and informed staff she may being partial weight bearing. Robyn Castaneda, RN 02/21/2025 8:34 AM Addendum Bonilla calls back Pt identified by name and Aware of below -Pt is 25% weight bearing per pt -Bonilla needs specific with weight bearing Presently -bonilla needs a Time line with weight bearing ( with or without boot) ( shoe vs boot) 02-25 next appt Please reach out to Bonilla before 02-25 Chris Bhatt OCCA 02/21/2025 12:00 PM Addendum Called and discussed patient was instructed to gradually add 25% weight every 3-4 days. At the next appointment on 02/25/25 with PT the patient should be at full weight bearing in the boot if she progressed at she was suppose to. Bonilla states she has only been 25% and using her scooter. Allergies As of Date: 02/20/2025 Noted Allergy Reaction SULFA (SULFONAMIDE ANTIBIOTICS) 03/29/2024 4 - Hives 2 - Rash Date Reviewed: 12/31/2024 Reviewed by: Loren Martinez, RN - Fully Assessed Reason for Visit: Patient Update [1234] Prescriptions as of 02/21/2025 - keTORolac (TORADOL) 10 mg tablet Take 1 tablet by mouth every 6 hours as needed. with food. - aspirin 325 mg tablet Take 1 tablet by mouth once daily. - DEXCOM G7 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 - DEXCOM G7 [...] BEDTIME NEEDED Problem List As Of Date 02/20/2025 Noted Resolved Acid reflux [K21.9] 07/21/2024 Anxiety [F41.9] 07/21/2024 Diabetes mellitus without complication (HCC) [E*07/21/2024 Vitamin D deficiency [E55.9] 07/21/2024 Arthritis of right acromioclavicular joint [M19*12/28/2024 BMI 60.0-69.9, adult (HCC) [Z68.44] 12/28/2024 AQUILES (obstructive sleep apnea) [G47.33] 12/28/2024 Encounter Status:Closed by CHRIS BHATT on 02/20/[address] [facility] Pop 02-13-2025 CNOV Office Visit (LOORRM ) POLLONOEL ORTIZ ([id number]) 1990 F [place] Date Time Provider Department 02/13/25 9:45 AM SEAN MATA LOORRM During your visit today, we recorded the following information about you: Sean Mata, SHITAL 02/13/2025 10:05 AM Signed PRIMARY SERVICE: [facility] Podiatry SUBJECTIVE: Patient is seen today for her third scheduled postop visit with her present 6 plus weeks status post a revision of modified Kidner procedure of her right foot without complaints. Medical: PAST MEDICAL HISTORY PAST MEDICAL HISTORY Diagnosis Date - Diabetes mellitus (HCC) - GERD (gastroesophageal reflux disease) - Obesity - AQUILES (obstructive sleep apnea) - PONV (postoperative nausea and vomiting) ALLERGIES: ALLERGIES ALLERGIES Allergen Reactions - Sulfa (Sulfonamide * Hives, Rash MEDICATIONS: CURRENT MEDICATIONS Current Outpatient Medications Medication Sig - keTORolac (TORADOL) 10 mg tablet Take 1 tablet by mouth every 6 hours as needed. with food. - aspirin 325 mg tablet Take 1 tablet by mouth once daily. - promethazine (PHENERGAN) 12.5 mg tablet Take 1 tablet by mouth every 8 hours as needed for up to 10 days. - DEXCOM G7 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 - DEXCOM G7 [...] HISTORY PAST SURGICAL HISTORY Procedure Laterality Date - PAST SURGICAL HISTORY OF Bilateral foot x2 - PAST SURGICAL HISTORY OF Right shoulder - REMOVAL GALLBLADDER PHYSICAL EXAM: The patient is [...] Satisfactory postop progress right foot status post 6 weeks appropriate to begin partial weightbearing Third postop visit right foot Discussed results of clinical examination with the patient and in detail upon removal of the BK fiberglass cast and dressings. We will begin progressive partial weightbearing next visit in an Aircast CAM Walker boot and refer to physical therapy. Follow-up in 1 month with probable discharge. No further radiographs needed SIGNATURE: Sean Mata DPM Medical intake sheet from February 13, 2025 , was updated by patient, reviewed, and was made part of the patient's chart. Sean Mata DPM Referring Provider: SELF [200] Allergies As of Date: 02/13/2025 Noted Allergy Reaction SULFA (SULFONAMIDE ANTIBIOTICS) 03/29/2024 4 - Hives 2 - Rash Date Reviewed: 12/31/2024 Reviewed by: Loren Martinez RN - Fully Assessed Reason for Visit: Post Op [174] Primary Visit Diagnosis:S/P foot surgery, right [Z98.890] Order(s):XR FOOT GENERAL 3V AP/LAT/OBL RIGHT [8905553] Order #: [id number] FUTURE CONSULT TO PHYSICAL THERAPY [9084] Order #: [id number]: 1 FUTURE Prescriptions as of 02/13/2025 - keTORolac (TORADOL) 10 mg tablet Take 1 tablet by mouth every 6 hours as needed. with food. - aspirin 325 mg tablet Take 1 tablet by mouth once daily. - DEXCOM G7 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 - DEXCOM G7 [...] BEDTIME NEEDED Problem List As Of Date 02/13 (more content not included)... Normal [facility] Office Visit (LOORR ) NOEL PAUL ([id number]) 1990 F [place] Date Time Provider Department 02/13/25 9:30 AM CAST [employer] COLEEN BLANKENSHIP During your visit today, we recorded the following information about you: Beverly Dobson Cast Tech 02/13/2025 10:15 AM Signed Patient in today for scheduled appointment. Cast removed. Right leg cleansed with Cavilon. Examined by Dr. Mata. Fitted with a medium Short Pneumatic Walker for the right leg. Instructions on application, adjustments and care given. Will f/u as scheduled/prn. HAYES Johnson Allergies As of Date: 02/13/2025 Noted Allergy Reaction SULFA (SULFONAMIDE ANTIBIOTICS) 03/29/2024 4 - Hives 2 - Rash Date Reviewed: 12/31/2024 Reviewed by: Loren Martinez, ABA - Fully Assessed Primary Visit Diagnosis:S/P foot surgery, right [Z98.890] Prescriptions as of 02/13/2025 - keTORolac (TORADOL) 10 mg tablet Take 1 tablet by mouth every 6 hours as needed. with food. - aspirin 325 mg tablet Take 1 tablet by mouth once daily. - DEXCOM G7 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 - DEXCOM G7 [...] BEDTIME NEEDED Problem List As Of Date 02/13/2025 Noted Resolved Acid reflux [K21.9] 07/21/2024 Anxiety [F41.9] 07/21/2024 Diabetes mellitus without complication (HCC) [E*07/21/2024 Vitamin D deficiency [E55.9] 07/21/2024 Arthritis of right acromioclavicular joint [M19*12/28/2024 BMI 60.0-69.9, adult (HCC) [Z68.44] 12/28/2024 AQUILES (obstructive sleep apnea) [G47.33] 12/28/2024 Encounter Status:Closed by BEVERLY DOBSON on 02/13/[address] [facility] XR FOOT 3V AP/LAT/OBL RTon 0 02-13-2025 XR FOOT 3V AP/LAT/OBL RT * * *Final Report* * * DATE OF EXAM: Feb 13 2025 9:25AM LZX 5337 - XR FOOT 3V AP/LAT/OBL RT / PROCEDURE REASON: S/P foot surgery, right * * * * Physician Interpretation * * * * EXAMINATION / TECHNIQUE: XR FOOT 3V AP/LAT/OBL RT PATIENT/TECHNOLOGIST PROVIDED HISTORY: post op right foot done 12-31-24 CLINICAL INFORMATION ( PROVIDED BY ORDERING CLINICIAN) : S/P foot surgery, right COMPARISON: Right foot radiographs 12/12/2024 RESULT: Postoperative changes of interval resection of os navicularis. There is mild residual postoperative soft tissue swelling in the operative bed. Bony alignment is unchanged. No new acute osseous abnormality or other significant interval change. IMPRESSION: Postoperative findings, as described. Programming Engineer: PSCB Transcribe Date/Time: Feb 13 2025 9:26A Dictated by : MONALISA HOLGUIN MD This examination was interpreted and the report reviewed and electronically signed by: ANGELA VEGAS MD on Feb 13 2025 10:19AM EST [id number] Normal [facility] XR Foot - right AP and Later al and obliqueon 02-13-2025 IMPRESSION: Postoperative findings, as described. Programming Engineer: PSCB Transcribe Date/Time: Feb 13 2025 9:26A Dictated by : MONALISA HOLGUIN MD This examination was interpreted and the report reviewed and electronically signed by: ANGELA VEGAS MD on Feb 13 2025 10:19AM EST DIVISION OF RADIOLOGY * * *Final Report* * * DATE OF EXAM: Feb 13 2025 9:25AM LZX 5337 - XR FOOT 3V AP/LAT/OBL RT / PROCEDURE REASON: S/P foot surgery, right * * * * Physician Interpretation * * * * EXAMINATION / TECHNIQUE: XR FOOT 3V AP/LAT/OBL RT PATIENT/TECHNOLOGIST PROVIDED HISTORY: post op right foot done 12-31-24 CLINICAL INFORMATION ( PROVIDED BY ORDERING CLINICIAN) : S/P foot surgery, right COMPARISON: Right foot radiographs 12/12/2024 RESULT: Postoperative changes of interval resection of os navicularis. There is mild residual postoperative soft tissue swelling in the operative bed. Bony alignment is unchanged. No new acute osseous abnormality or other significant interval change. DIVISION OF RADIOLOGY Provider, [facility] - 02/13/2025 * * *Final Report* * * DATE OF EXAM: Feb 13 2025 9:25AM LZX 5337 - XR FOOT 3V AP/LAT/OBL RT / PROCEDURE REASON: S/P foot surgery, right * * * * Physician Interpretation * * * * EXAMINATION / TECHNIQUE: XR FOOT 3V AP/LAT/OBL RT PATIENT/TECHNOLOGIST PROVIDED HISTORY: post op right foot done 2--25 CLINICAL INFORMATION ( PROVIDED BY ORDERING CLINICIAN) : S/P foot surgery, right COMPARISON: Right foot radiographs 12/12/2024 RESULT: Postoperative changes of interval resection of os navicularis. There is mild residual postoperative soft tissue swelling in the operative bed. Bony alignment is unchanged. No new acute osseous abnormality or other significant interval change. IMPRESSION IMPRESSION: Postoperative findings, as described. Programming Engineer: PSCB Transcribe Date/Time: Feb 13 2025 9:26A Dictated by : MONALISA HOLGUIN MD This examination was interpreted and the report reviewed and electronically signed by: ANGELA VEGAS MD on Feb 13 2025 10:19AM EST [facility] Radiology Study observation (narrative) [facility] Foot - right AP and Later al and obliqueOrdered By: Ccf Provider on 02-13-2025 [facility] CNOVon 01-23-2025 CNOV Office Visit (LOORRM ) NOEL PAUL ([id number]) 1990 F [place] Date Time Provider Department 01/23/25 11:30 AM CAST TECH COLEEN PATTIE During your visit today, we recorded the [...] by mouth once daily. - DEXCOM G7 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 - DEXCOM G7 [...] BEVERLY DOBSON on 01/23/[address] [facility] CNOV Office Visit (LOORRM ) NOEL PAUL ([id number]) 1990 Joseph DRISCOLL Date Time Provider Department 01/23/25 11:30 AM SEAN MATA LOORRM During your visit today, we recorded the following information about you: Sean Mata DPM 01/23/2025 11:47 AM Signed PRIMARY SERVICE: [facility] Podiatry SUBJECTIVE: Patient is seen today for [...] for up to 10 days. 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 DEXCOM G7 SENSOR [...] to physical therapy. SIGNATURE: SHITAL Ward Melody, CT 01/23/2025 12:18 PM Signed Addended by: NATALIA [...] [Q74.2] Order(s):XR FOOT GENERAL 3V AP/LAT/OBL RIGHT [[id number]] Order #: [id number] FUTURE PARKING FOR HANDICAPPED [[id number]] Order #: [id number] Prescriptions as of 01/23/2025 - keTORolac (TORADOL) 10 mg tablet Take 1 tablet by mouth every 6 hours as needed. with food. - aspirin 325 mg tablet Take 1 tablet by mouth once daily. - DEXCOM G7 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 - DEXCOM G7 [...] - oxyCOD (more content not included)... Normal [facility] CNCOon 01-09-2025 CNCO Letter Text Normal [facility] CNOVon 01-09-2025 CNOV Office Visit (LOORRM ) NOEL PAUL ([id number]) 1990 F [facility] Date Time Provider Department 01/09/25 10:15 AM SEAN MATA During your visit today, we recorded the following information about you: Sean Mata, SHITAL 01/09/2025 10:55 AM Signed PRIMARY SERVICE: [facility] Podiatry SUBJECTIVE: Patient is seen today for [...] for up to 10 days. 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 DEXCOM G7 SENSOR [...] [Q74.2] Order(s):XR FOOT GENERAL 3V AP/LAT/OBL RIGHT [[id number]] Order #: [id number] FUTURE Prescriptions as of 01/09/2025 - keTORolac (TORADOL) 10 mg tablet Take 1 tablet by mouth every 6 hours as needed. with food. - aspirin 325 mg tablet Take 1 tablet by mouth once daily. - promethazine (PHENERGAN) 12.5 mg tablet Take 1 tablet by mouth every 8 hours as needed for up to 10 days. - DEXCOM G7 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 - DEXCOM G7 [...] Noted R (more content not included)... Normal [facility] Office Visit (LOORRM ) NOEL PAUL ([id number]) 1990 F [place] Date Time Provider Department 01/09/25 9:30 AM JAIRO BLANKENSHIP During your visit today, we recorded [...] up to 10 days. - DEXCOM G7 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 - DEXCOM G7 [...] SHAYLEE CONCEPCION on 01/09/[address] [facility] Vaibhav 01-02-2025 CNPN Telephone (LOORRM) NOEL PAUL ([id number]) 1990 F [place] Date Time Provider Department 01/02/25 SEAN MATA During your visit today, we recorded the following information about you: Sean Mata DPM 01/02/2025 12:40 PM Signed Called patient at [phone] to return call regarding pain management. I [...] up to 5 days. - DEXCOM G7 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 - DEXCOM G7 [...] SEAN MATA on 01/02/[address] [facility] ANES POSTPROC EVALon 025 ANES POSTPROC EVAL HNO ID: [id number] Author: PETER BROWN MD Service: Anesthesiology Author Type: Anesthesiologist Type: Anesthesia Postprocedure Evaluation Filed: 12/31/2024 11:19 Note Text: POST ANESTHESIA EVALUATION NOTE : 1990 Procedure Summary Date: 12/31/24 Room / Location: [place] [address] / [facility] Anesthesia Start: 737 Anesthesia Stop: 100 Procedure: [...] December 31, 2024 TIME: 11:19 AM CSN: [id number] Normal [facility] ANES PRE-OPon 12-31-2024 ANES PRE-OP HNO ID: [id number] Author: PETER BROWN MD Service: Anesthesiology Author Type: Anesthesiologist Type: Anesthesia Preprocedure Evaluation Filed: 12/31/2024 07:32 Note Text: ANESTHESIOLOGY DAY OF SURGERY NOTE : 1990 Procedure Information Date/Time: 12/31/24 0730 Procedure: RECONSTRUCTION POSTERIOR TIBIAL TENDON W/EXCISION OF ACCESSORY TARSAL NAVICULAR BONE (Right: Foot) Location: [place] [address] / [facility] Surgeons: Sean Mata DPM Estimated body mass [...] of 12/31/2024 Medication Sig - DEXCOM G7 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 - DEXCOM G7 [...] December 31, 2024 TIME: 7:31 AM CSN: [id number] Normal [facility] BRIEF OP NOTon 12-31-2024 BRIEF OP NOT HNO ID: [id number] Author: SEAN MATA DPM Service: Podiatry Author Type: Physician Type: Brief Op Note Filed: 12/31/2024 09:42 Note Text: BRIEF OPERATIVE / PROCEDURE NOTE LOG ID: [id number] SURGERY/PROCEDURE DATE: 12/31/2024 INCISION/PROCEDURE START TIME: 8:16 AM INCISION CLOSE/PROCEDURE END TIME: SURGEON(S)/PROCEDURAL IST(S) AND CNC MANAGER(S): Surgeons and Role: * Sean Mata DPM [...] December 31, 2024 TIME: 9:39 AM Normal [facility] 12-31-2024 CNPN Telephone (ORQ) NOEL PAUL ([id number]) 1990 F [place] Date Time Provider Department [...] calling: self Call patient at: at home [phone] (home) [phone] (cell) Was an appointment scheduled: No Closing statement: Results or non-symptom based questions: Thank you for calling [facility], your call will be returned within the next business day. Karissa Torrez MA 12/31/2024 3:26 PM Signed Message has been sent directly to Dr Mata's phone. Sean Mata DPM 01/01/2025 3:53 PM Signed Called patient at her Lonnie's cell number at [phone] to check on postop progress. Received voicemail. [...] up to 5 days. - DEXCOM G7 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 - DEXCOM G7 [...] Status:Closed by SEAN MATA on 01/01/25 Normal [facility] OPERATIVE NOon 12-31-2024 OPERATIVE NO HNO ID: [id number] Author: SEAN MATA DPM Service: Podiatry Author Type: Physician Type: Operative Report Filed: 01/24/2025 08:37 Note Text: [facility] - Operative Report [address] [place] [address] [place] NOEL PAUL : 1990 AGE: 34. SEX: F PATIENT TYPE: OP HOSP SVC: ORTS LOCATION: [place] [address] ATTENDING PHYSICIAN: Sean Mata DPM CSN NUMBER: [id number] DATE OF SURGERY/PROCEDURE: 12/31/2024 INCISION/PROCEDURE START TIME: 8:16 a.m. INCISION CLOSE/PROCEDURE END TIME: 9:43 a.m. The procedure was performed in conjunction with the resident who was present in the operating room today under my direct supervision from skin to skin. PREOPERATIVE DIAGNOSIS: Painful remaining accessory navicular, right foot. POSTOPERATIVE DIAGNOSIS: Painful remaining accessory navicular, right foot. SURGEON: Sean Mata DPM CNC MANAGER: Maurice Bernard D.P.M. SURGERY/PROCEDURE: Revisional modified Kidner procedure, right foot, CPT 02974. ANESTHESIA: General with a local field block consisting of 20 mL of 2% lidocaine plain. LOCATION: [facility]. HEMOSTASIS: Right pneumatic thigh tourniquet at [...] with a SutureTak, we then used some [id number] sutures distally to the distal (more content not included)... Normal [facility] Pathology biopsy report Joseph (Tiss)on 12-31-2024 CASE REPORT Normal [facility] Comment on above: Order Comment: Speci men Type: TISSUE SPECIMENOrdering Facility: [facility] Address: [address] [place] [address] Result Comment: Surg [facility] Pathology Report Case: [id number] Authorizing Provider: Sean Mata, Collected: 12/31/2024 09:51 AM DPM Ordering Location: Ambulatory Surgery Received: 12/31/2024 01:28 PM Pathologist: Shemar Pablo MD Specimen: Bone and Soft Tissue, right foot Performed By: #### 6 [id number] ####[facility] LABORATORYCLIA [id number] [place] [address] [facility] LABCL[facility] [id number] [address] CLINICAL HISTORY Normal [facility] Comment on above: Order Comment: Speci men Type: TISSUE SPECIMENOrdering Facility: [facility] Address: [address] [place] [address] Result Comment: Pre- op diagnosis: 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] Performed By: #### 6 6121-5 ####[facility] [id number] [place] [address] [facility] LABCLIA [id number] [place] [address] [place] FINAL DIAGNOSIS Normal [facility] Comment on above: Order Comment: Speci men Type: TISSUE SPECIMENOrdering Facility: [facility] Address: [address] [place] [address] Result Comment: A. B one, right foot, excision: - Osteocartilaginous tissue with degenerative changes and granulation tissue. Performed By: #### 6 6121-5 ####[facility]ITAL[facility] [id number] [place] [address] [facility] LABCLIA [id number] [address] [place] FINAL PERFORMING LAB Normal [facility] Comment on above: Order Comment: Speci men Type: TISSUE SPECIMENOrdering Facility: [facility] Address: [address] [place] [address] Result Comment: Diag nostic interpretation performed at: [facility], [address] [facility], [facility] [address] CLIA# [id number] Pipe Inspector: Fermín Ojeda MD Performed By: #### 6 6121-5 ####[facility] LABOR[facility]ORYCLIA [id number] [place] [address] [facility] LABCLIA [id number] [place] [address] [place] GROSS DESCRIPTION Normal [facility] Comment on above: Order Comment: Speci men Type: TISSUE SPECIMENOrdering Facility: [facility] Address: [address], [place] [address] Result Comment: A. B one and Soft Tissue Received in formalin, labeled right foot are multiple irregular fragments of mccarthy, hard bone measuring 3 x 3 x 0.9 cm in aggregate. Sectioning reveals mccarthy, hard bone. No gross necrotic areas identified. Legal Advisor sections are submitted in A1 following formic decalcification. KSZ January 01, 2025 10:57 AM Gross examination performed at [facility], [address] [facility], [place] [address] Performed By: #### 6 6121-5 ####[facility] LABORATORYCLIA [id number] [facility] [place] [address] [facility] LABCLIA [id number] [facility] [id number] [place], [place] [id number] [facility] HISTORY PHYSICALon HISTORY PHYSICAL HNO ID: [id number] Author: ARY ROCHA APRN.IRENE Service: ? Author Type: Nurse Practitioner Type: H&P Filed: 12/28/2024 10:56 Note Text: [facility] HISTORY AND PHYSICAL EXAMINATION SERVICE DATE: 12/28/2024 SERVICE TIME: 10:08 AM PRIMARY CARE PHYSICIAN: Monique Emmanuel CNP, CUSTODIAL OPERATIONS MANAGER REASON FOR VISIT: Noel Paul is a [...] STOP-Bang Score: STOP-Bang Score: 0 (Awaiting CPAP) [id number] Score: Age: <65 Sex: female [id number] Score: ARISCAT Score: Age: <=50 Preoperative SpO2: [...] chart review and guidance on proceeding at [facility]. Per Dr Goetz, patient may proceed as scheduled at [facility] CONSULTS: Anesthesia Consult chart review The Following [...] 1 t (more content not included)... 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 - DEXCOM G7 [...] 1 CA (more content not included)... 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 - DEXCOM G7 [...] Status:Closed by CATHY SANTANA on 12/12/24 Normal [facility] XR FOOT 3V AP/LAT/OBL RTon 0 12-12-2024 [...] unremarkable. IMPRESSION: No fracture or joint dislocation. Programming Engineer: HERNÁN Transcribe Date/Time: Dec 12 2024 9:37A Dictated by : LUX WILLETT MD This examination was interpreted and the report reviewed and electronically signed by: LUC AVILES MD on Dec 12 2024 11:47AM EST [id number] Normal [facility] XR Foot - right AP and Later al and obliqueon 12-12-2024 IMPRESSION: No fracture or joint dislocation. Programming Engineer: PSCB Transcribe Date/Time: Dec 12 2024 9:37A [...] tissues appear unremarkable. DIVISION OF RADIOLOGY Provider, [facility] - 12/12/2024 * * *Final Report* * [...] IMPRESSION IMPRESSION: No fracture or joint dislocation. Programming Engineer: HERNÁN Transcribe Date/Time: Dec 12 2024 9:37A Dictated by : LUX WILLETT MD This examination was interpreted and the report reviewed and electronically signed by: LUC AVILES MD on Dec 12 2024 11:47AM EST [facility] Radiology Study observation (narrative) Bradford zheng [facility] XR Foot - right AP and Later al and obliqueOrdered By: Ccf Provider on 12-12-2024 [facility] 36on 12-04-2024 36 Spoke with patient and let her know that per Dr. Her she can bring the disc in and he will take a look at the images and let her know. Normal [facility] 36on 12-03-2024 36 Patient would like t o know if she can get in earlier than her rescheduled appt since she had to cancel. Patient would like to drop off her MRI results sooner than her appt as well. Please advise at [phone] [facility] Telephoneon 12-03-2024 Telephone [id number] Noel Paul 1990 F Date Provider Department [facility] 12/03/2024 [id number] WEIR ORTHO MPORTHO No family history on file Reason for Visit and Comments: Appointment [375] [facility] 36on 11-29-2024 36 LVM with patient yoni t she will need to bring disc in. Scheduled patient for Tuesday12/03/24 at 10:30 am [facility] 36 Patient would like t o know if she needs to make an appointment to bring in her MRI results or if you have received them? Family Dinner Service Specialist does not see them in the chart. Please advise at [phone] [facility] Office Visiton 11-26-2024 Follow-up visit [id number] Noel Paul 1990 F Date Provider Department [facility] 11/26/2024 Mariela-KAT HER ORTHO MPORTHO No family history on file Level of Service:58336 AL OFFICE/OUTPATIENT NEW LOW MDM 30 MINUTES (GC) Reason for Visit and Comments: Pain [136] [facility] 36on 11-23-2024 36 LVM to confirm appt Normal [facility] Surgical Pathology Reporton 09-12-2024 Surgical Pathology Report [address] [address]- Surgical Pathology Report Collected Date/Time: 09/05/2024 08:32 EDT Pathologist: Joon LONG PhD, Benito Ritter Date/Time: 09/06/2024 07:35 EDT Rodo ISAACS, Pato Avelar DPM, Pato [facility] Surgical [...] of clinical information only. Normal [facility] Comment on above: Performed By: #### 4 [id number] #### [facility] Laboratory [address] [place] [address] Surgical Pathology Reporton 09-11-2024 Surgical Pathology Report [address] [address]- Surgical Pathology Report Collected Date/Time: 09/05/2024 08:32 EDT Pathologist: Joon LONG PhD, Benito Piedra Received Date/Time: 09/06/2024 07:35 EDT Rodo ISAACS, Pato Avelar DPM, Pato [place] Surgical [...] submitted in one cassette after decalcification. (DC) DC:[facility] Microscopic Description Microscopic examination performed unless gross only specified. Normal [facility] Comment on above: Performed By: #### 4 [id number] #### [facility] Laboratory [address] [place] [address] Basic Metabolic Panelon - Creatinine Clr Calc Pharmacy 161.75 Normal [facility] Comment on above: Result Comment: PERF ORMED BY: [place] [address] PATHOLOGIST CLOTH FINISHING RANGE OPERATOR CHIEF SIMEON BIGGS M.D. Performed By: #### B MP #### [address] GFR/1.73 sq M.predicted MDRD (S/P/Bld) [Vol rate/Area] mL/min/{1.73_m2} Normal [facility] Comment on above: Performed By: #### B MP #### [place] [address] [place] Calcium [Mass/volume] in Ser um or PlasmaOrdered By: Sean Ruano on 05-16-2024 Calcium [Mass/Vol] 8.8 mg/dL Normal 8.6-10.[address] [facility] Comment on above: Performed By: #### B MP #### [address] Capillary blood glucose jaswinder urement by glucometer (mass/volume)Ordered By: Pato Avelar on 05-16-2024 Glucose [Mass/Vol] 106 mg/dL Normal [facility] Comment on above: Random Glucose Refer ence Range is dependent on time and content of last meal. Glucose of more than 200 mg/dL in a nonstressed, ambulatory subject supports the diagnosis of Diabetes Mellitus. Result Comment: [place] om Glucose Reference Range is dependent on time and content of last meal. Glucose of more than 200 mg/dL in a nonstressed, ambulatory subject supports the diagnosis of Diabetes Mellitus. Performed By: #### G LULS #### Point of Care testing , Carbon dioxide, total [Moles /volume] in Serum or PlasmaOrdered By: Sean Ruano on 05-16-2024 CO2 [Moles/Vol] 27.3 mmol/L Normal 21.0-31.0 [facility] Comment on above: Performed By: #### B MP #### [place] [address] [place] Chloride [Moles/volume] in S nikkie or PlasmaOrdered By: Sean Ruano on 05-16-2024 Chloride [Moles/Vol] 105 mmol/L Normal 98-107 [facility] Comment on above: Performed By: #### B MP #### [facility] [address] Creatinine [Mass/volume] in Serum or PlasmaOrdered By: Sean Ruano on 05-16-2024 Creatinine [Mass/Vol] 0.66 mg/dL Normal 0.60-1.20 [facility] Comment on above: Performed By: #### B MP #### [facility] [address] Glucose Poct Glucometerson 0 05-16-2024 Commemt1 Glu2: Cleaned Meter Normal [facility] Comment on above: Result Comment: PERF ORMED BY: [place] [address] PATHOLOGIST CLOTH FINISHING RANGE OPERATOR CHIEF SIMEON BIGGS M.D. Performed By: #### G BARAK #### Point of Care testing , Glucose [Mass/volume] in Ser um or PlasmaOrdered By: Sean Ruano on 05-16-2024 Glucose [Mass/Vol] 107 mg/dL High 70-[address] [facility] Comment on above: ADA recommended refe rence rangeRandom Glucose Reference Range is dependent on time and content of last meal. Glucose of more than 200 mg/dL in a nonstressed, ambulatory subject supports the diagnosis of Diabetes Mellitus. Result Comment: [place] Glucose Reference Range is dependent on time and content of last meal. Glucose of more than 200 mg/dL in a nonstressed, ambulatory subject supports the diagnosis of Diabetes Mellitus. ADA recommended reference range Performed By: #### B MP #### [facility] [address] [place] [address] [place] HCG ( test) IA.rapi d Ql (U)Ordered By: Sean Ruano on 05-16-2024 HCG ( test) Ql (U) Negative HCG,Urineon 05-16-2024 Beta HCG ( test) Ql (U) Negative Normal [facility] Comment on above: Result Comment: PERF ORMED BY: [place] [address] PATHOLOGIST CLOTH FINISHING RANGE OPERATOR CHIEF SIMEON BIGGS M.D. Performed By: #### U HCG #### [place] [id number] [facility] Jason 05-16-2024 L Specimen: [id number] Received: 05/16/24 Status: SOUT Req Num: [id number] Spec Type: Surgical Subm Dr: Pato Avelar DPM Tissues: A Bone Fragments - Other than Path Fracture (ACCESSORY BONE LT FOOT) Procedures: HE, Gross/Micro L3, Decalcification Age/ Patient Sex Location Account Attending Physician PollophilipNoel 33/F [place] [id number] Pato Avelar DPM SPEC NUM: [id number] RECD: 05/16/24 STATUS: KESHA TINSLEY NUM: [id number] BRUNO: 05/16/24- SUBM DR: Pato Avelar DPM ENTERED: 05/16/[address] [facility] DR: SPEC TYPE: Surgical DEPT: S [...] areas of necrosis or cysts are present. Legal Advisor sections are submitted following decalcification in A1. CPT Codes 76157, 49104 -------- -------- Specimen: [id number] Received: 05/16/24 Status: KESHA Demetrius Num: [id number] Spec Type: Surgical Subm Dr: Pato Avelar DPM Tissues: A Bone Fragments - Other than Path Fracture (ACCESSORY BONE LT FOOT) Procedures: NICOLE, Gross/Micro L3, Decalcification -------- Patient: Noel Paul [id number] (Continued) -------- Signed (signature on file) Tabatha Dupree MD 05/19/24 1640 Normal [facility] No Panel InformationOrdered By: Pato Avelar on 05-16-2024 Bedside Glucose Comment Glu2: cleaned meter No Panel InformationOrdered By: Sean Ruano on 05-16-2024 Estimated GFR (CKD-EPI) > 60.0 mL/Min Pharmacy Creatinine Clearance (Chem 161.75 Potassium [Moles/volume] in Serum or PlasmaOrdered By: Sean Ruano on 05-16-2024 Potassium [Moles/Vol] 3.8 mmol/L Normal 3.5-5.1 [facility] Comment on above: Performed By: #### B MP #### [address] Serum or plasma anion gap de terminationOrdered By: Sean Ruano on 05-16-2024 Anion gap [Moles/Vol] 9.5 mmol/L Normal 6.0-15.0 [facility] Comment on above: Performed By: #### B MP #### [address] Sodium [Moles/volume] in Ser um or PlasmaOrdered By: Sean Ruano on 05-16-2024 Sodium [Moles/Vol] 138 mmol/L Normal 136-[address] [facility] Comment on above: Performed By: #### B MP #### [address] Urea nitrogen [Mass/volume] in Serum or PlasmaOrdered By: Sean Ruano on 05-16-2024 Urea nitrogen [Mass/Vol] 17 mg/dL Normal 7-25 Comment on above: Performed By: #### B MP #### [place] [address] [place] XR foot LT 2Von 05-16-2024 XR foot LT 2V [facility] [place] [address] XRay Report Signed Patient: Noel Paul MR#: [id number] : 1990 Acct:[id number] Age/Sex: 33 / F ADM Date: 05/16/24 Loc: [place] Room: Type: [facility] Attending Dr: Pato Avelar DPMadi Copies to: Pato Avelar DPM Ordering Provider: [...] Leisa Adames M.D.05/16/2024 3:20 PM Dictation Location: [place] [address] Transcribed By: [facility] 05/16/24 1520 Dictated By: Leisa Adames MD 05/16/24 1515 Signed By: 05/16/24 1520 Normal [facility] CBC w/ Auto Diffon 4 Basophils/100 WBC (Bld) 0.5 % Normal 0.0-2.0 [facility] Comment on above: Performed By: #### 2 [id number] #### [facility] [address] [place] [address] Basophils/Leukocytes Auto (Bld) [Pure # fraction] 0.1 E9/L Normal 0.0-0.2 [facility] Comment on above: Performed By: #### 2 583285 #### [facility] [address] [place] [address] Eosinophils (Bld) [#/Vol] 0.3 E9/L Normal 0.0-0.5 [facility] Comment on above: Performed By: #### 2 481386 #### [facility] [address] [place] [address] Eosinophils/100 WBC (Bld) 2.9 % Normal 0.0-8.0 [facility] Comment on above: Performed By: #### 2 795247 #### [facility] [address] [place] [address] Erythrocyte distribution width (RBC) [Ratio] 15.6 % High 10.9-14.2 [facility] Comment on above: Performed By: #### 2 760770 #### [facility] [address] [place] [address] Hematocrit (Bld) [Volume fraction] 39.9 % Normal 34.0-46.0 [facility] Comment on above: Performed By: #### 2 436571 #### [facility] [address] [place] [address] Hemoglobin (Bld) [Mass/Vol] 12.8 g/dL Normal 12.0-16.0 [facility] Comment on above: Performed By: #### 2 957615 #### [facility] [address] [place] [address] Lymphocytes (Bld) [#/Vol] 2.3 E9/L Normal 1.0-4.0 [facility] Comment on above: Performed By: #### 2 357404 #### [facility] [address] [place] [address] Lymphocytes/100 WBC (Bld) 20.9 % Normal 14.0-50.0 [facility] Comment on above: Performed By: #### 2 720371 #### [facility] [address] [place] [address] MCH (RBC) [Entitic mass] 25.4 pg Low 27.0-34.0 [facility] Comment on above: Performed By: #### 2 669042 #### [facility] [address] [place] [address] MCHC (RBC) [Mass/Vol] 32.2 g/dL Normal 31.4-36.0 [facility] Comment on above: Performed By: #### 2 812505 #### [facility] [address] [place] [address] MCV (RBC) [Entitic vol] 79.0 fL Low 80.0-100.0 [facility] Comment on above: Performed By: #### 2 361360 #### [facility] [address] [place] [address] Monocytes (Bld) [#/Vol] 0.7 E9/L Normal 0.2-1.0 [facility] Comment on above: Performed By: #### 2 446808 #### [facility] [address] [place] [address] Neutrophils (Bld) [#/Vol] 7.7 E9/L High 2.0-7.5 [facility] Comment on above: Performed By: #### 2 437191 #### [facility] [address] [place] [address] Neutrophils/100 WBC (Bld) 69.3 % Normal 36.0-75.0 [facility] Comment on above: Performed By: #### 2 275302 #### [facility] [address] [place] [address] Platelet mean volume (Bld) [Entitic vol] 8.3 fL Normal 6.4-10.8 [facility] Comment on above: Performed By: #### 2 479589 #### [facility] [address] [place] [address] Platelets (Bld) [#/Vol] 346.0 E9/L Normal 150.0-500.0 [facility] Comment on above: Performed By: #### 2 795036 #### [facility] [address] [place] [address] RBC (Bld) [#/Vol] 5.1 E12/L Normal 4.3-5.9 [facility] Comment on above: Performed By: #### 2 919969 #### [facility] [address] [place] [address] WBC corrected for nucl RBC Auto (Bld) [#/Vol] 11.1 E9/L High 4.0-11.0 [facility] Comment on above: Performed By: #### 2 334697 #### [facility] [address] [place] [address] Consent for Treatmenton 03-29 Consent for Treatment [id number] .[id number] Normal [facility] HEMATOLOGYOrdered By: SYSTEM SYSTEM on [...] Remisol Heme Physician Orderon 04-18-2024 Physician Order [id number]#1 .00TIFF Normal [facility] XR shoulder RT min 2V*on XR shoulder RT min 2V* [facility] [place] [address] XRay Report Signed Patient: Nole Paul MR#: [id number] : 1990 Acct:[id number] Age/Sex: 33 / F ADM Date: 02/27/24 Loc: XDUCLY Room: Type: [facility] Attending Dr: Monique SANDOVAL Copies to: LROI Dias Ordering Provider: LORI Dias Date of [...] Leisa Adames M.D.02/27/2024 6:14 PM Dictation Location: [place] [address] Transcribed By: DANIELLE 02/27/241813 Dictated By: Leisa Adames MD 02/27/241812 Signed By: 02/27/241813 Normal [facility] GLYCOHEMOGLOBIN A1Con 2022 ADA RECOMMENDATION SEE BELOW Normal [facility] Comment on above: Result Comment: ADA RECOMMENDED LIMIT 4.0 - 6.0 ADA THERAPEUTIC TARGET < 7.0 ACTION SUGGESTED > 7.0 Performed By: #### A 1C #### [facility] [address] [place] [address] Dr. Benito Dupree Glucose [Mass/Vol] 105 mg/dL Normal [facility] Comment on above: Performed By: #### A 1C #### [facility] [address] [place] [address] Dr. Benito Dupree HbA1c (Bld) [Mass fraction] 5.3 % Normal 4.5-6.2 [facility] Comment on above: Performed By: #### A 1C #### [facility] [address] [place] [address] Dr. Benito Dupree Covid-19 PCR (CVDTB)on SARS-CoV-2 (COVID-19) RNA MUKUND+probe Ql (Unsp spec) Not detected Normal NOT DETECTED [facility] Comment on above: Result Comment: This test is not yet approved or cleared by the [place] FDA. When there are no FDA-approved or cleared tests available, and other criteria are met, FDA can make tests available under an emergency access mechanism called an Emergency Use Authorization (EUA). The EUA for this test is supported by the Picture Enlarger of Health and Human Service's (HHS's) declaration [...] SARS-CoV-2. Performed By: #### C VDTB #### [facility] [address] [place] [address] Dr. Benito Dupree INFLUENZA A AND B AGon 01-05 [facility] SEE BELOW Normal [facility] Comment on above: Result Comment: Nega tive for Flu A protein angiten. Infection due to Flu A cannot be ruled out. Flu A angiten in the sample may be below the detection limit of the test. Performed By: #### I NFLUAB #### [facility] [address] [place] [address] Dr. Benito Dupree [place]FLUSIERRA [place] SEE BELOW Normal [facility] Comment on above: Result Comment: Nega tive for Flu B protein antigen. Infection due to Flu B cannot be ruled out. Flu B antigen in the sample may be below the detection limit of the test. Performed By: #### I NFLUAB #### [facility] [address] [place] [address] Dr. Benito Dupree INFLUENZA A AG Negative Normal NEGATIVE SEE COMMENT [facility] Comment on above: Performed By: #### I NFLUAB #### [facility] [address] [place] [address] Dr. Benito Dupree INFLUENZA B AG Negative Normal NEGATIVE SEE COMMENT [facility] Comment on above: Performed By: #### I NFLUAB #### [facility] [address] [place] [address] Dr. Benito Dupree GLYCOHEMOGLOBIN A1Con 2021 ADA RECOMMENDATION SEE BELOW Normal [facility] Comment on above: Result Comment: ADA RECOMMENDED LIMIT 4.0 - 6.0 ADA THERAPEUTIC TARGET < 7.0 ACTION SUGGESTED > 7.0 Performed By: #### A 1C #### [facility] [address] [place] [address] Dr. Benito Dupree Glucose [Mass/Vol] 143 mg/dL Normal [facility] Comment on above: Performed By: #### A 1C #### [facility] [address] [place] [address] Dr. Benito Dupree HbA1c (Bld) [Mass fraction] 6.6 % Critically high 4.5-6.2 [facility] Comment on above: Performed By: #### A 1C #### [facility] [address] [place] [address] [address] Benito Dupree LIPID PROFILEon 11-15-2022 CHOL-HDL RATIO NORM SEE BELOW Normal [facility] Comment on above: Result Comment: 3.3 - 4.4 LOW RISK 4.4 - 7.1 AVERAGE RISK 7.1 - 11.0 MODERATE RISK >11.0 HIGH RISK Performed By: #### I NFLUAB #### [facility] [address] [address] [address] Benito Dupree Cholesterol [Mass/Vol] 154 mg/dL Normal <=[address] [facility] Comment on above: Performed By: #### I NFLUAB #### [facility] [address] [address] [address] Benito Dupree Cholesterol in HDL [Mass/Vol] 29 mg/dL Critically low 40-60 [facility] Comment on above: Performed By: #### I NFLUAB #### [facility] [address] [address] [address] Benito Dupree Cholesterol in LDL [Mass/Vol] 98.2 mg/dL Normal [facility] Comment on above: Performed By: #### I NFLUAB #### [facility] [address] [place], [place] [address] Dr. Benito Dupree Cholesterol.total/Lisandra sterol in HDL [Mass ratio] 5.3 {ratio} Normal [facility] Comment on above: Performed By: #### I NFLUAB #### [facility] [id number] Benito Dupree HDL NORMAL > or = 60 mg/dl - LO W CARDIOVASCULAR RISK <40 mg/dl - HIGH CARDIOVASCULAR RISK Normal [facility] Comment on above: Performed By: #### I NFLUAB #### [facility] [id number] Benito Dupree LDL CALC NORMAL SEE BELOW Normal [facility] Comment on above: Result Comment: <100 mg/dl OPTIMAL 100 - 129 mg/dl NEAR OR ABOVE OPTIMAL 130 - 159 mg/dl BORDERLINE HIGH 160 - 189 mg/dl HIGH >190 mg/dl VERY HIGH Performed By: #### I NFLUAB #### [facility] [address] [place] [address] Dr. Benito Dupree Triglyceride [Mass/Vol] 134 mg/dL Normal <=150 [facility] Comment on above: Performed By: #### I NFLUAB #### [facility] [address] [place] [address] Dr. Benito Dupree VLDL CALC 26.8 mg/dL Normal [facility] Comment on above: Performed By: #### I NFLUAB #### [facility] [address] [place] [address] Dr. Benito Dupree INSULINon 08-19-2022 Insulin 24.3 uIU/mL Normal 2.6-24.9 [facility] Comment on above: Performed By: #### I NFLUAB #### [facility] [address] [place] [address] Dr. Benito Dupree T4, T3U, FTI LABCORPon 08-19 Free Thyroxine Index 2.6 Normal 1.2-4.9 [facility] Comment on above: Performed By: #### T HYLC #### [facility] [address] [place] [address] Dr. Benito Dupree T3 Uptake 29 % Normal 24-39 [facility] Comment on above: Performed By: #### T HYLC #### [facility] [address] [place] [address] Dr. Benito Dupree T4 [Mass/Vol] 8.8 ug/dL Normal 4.5-12.0 [facility] Comment on above: Performed By: #### T HYLC #### [facility] [address] [place] [address] Dr. Benito Dupree CBC AUTO DIFFon 08-18-2022 BASO # 0.1 103/ul Normal 0.0-0.1 [facility] Comment on above: Performed By: #### I NFLUAB #### [facility] [address] [place] [address] Dr. Benito Dupree Basophils/100 WBC (Bld) 0.8 % Normal 0.2-2.0 [facility] Comment on above: Performed By: #### I NFLUAB #### [facility] [address] [place] [address] Dr. Benito Dupree EO # 0.3 103/ul Normal 0.0-0.7 [facility] Comment on above: Performed By: #### I NFLUAB #### [facility] [address] [place] [address] Dr. Benito Dupree Eosinophils/100 WBC (Bld) 2.8 % Normal 0.9-7.0 [facility] Comment on above: Performed By: #### I NFLUAB #### [facility] [address] [place] [address] Dr. Benito Dupree Erythrocyte distribution width (RBC) [Ratio] 15.4 % Critically high 11.0-15.0 [facility] Comment on above: Performed By: #### I NFLUAB #### [facility] [address] [place] [address] Dr. Benito Dupree Hematocrit (Bld) [Volume fraction] 43.7 % Normal 36.0-48.0 [facility] Comment on above: Performed By: #### I NFLUAB #### [facility] [address] [place] [address] Dr. Benito Dupree Hemoglobin (Bld) [Mass/Vol] 14.2 g/dL Normal 12.0-16.0 [facility] Comment on above: Performed By: #### I NFLUAB #### [facility] [address] [place] [address] Dr. Benito Dupree IG # 0.08 10e3/ul Critically high 0.00-0.03 [facility] Comment on above: Performed By: #### I NFLUAB #### [facility] [address] [place] [address] Dr. Benito Dupree IG % 0.9 % Critically high 0.0-0.5 [facility] Comment on above: Performed By: #### I NFLUAB #### [facility] [address] [address] [address] Benito Dupree LYMPH # 2.3 103/ul Normal 1.2-3.8 [facility] Comment on above: Performed By: #### I NFLUAB #### [facility] [address] [address] [address] Benito Dupree Lymphocytes/100 WBC (Bld) 24.3 % Normal 20.5-60.0 [facility] Comment on above: Performed By: #### I NFLUAB #### [facility] [address] [address] [address] Benito Dupree MANUAL DIFF REQ NO Normal [facility] Comment on above: Performed By: #### I NFLUAB #### [facility] [address] [place] [address] Dr. Benito Dupree MCH (RBC) [Entitic mass] 26.1 pg Critically low 26.7-34.0 [facility] Comment on above: Performed By: #### I NFLUAB #### [facility] [address] [place] [address] Dr. Benito Dupree MCHC (RBC) [Mass/Vol] 32.5 g/dL Normal 29.9-35.2 [facility] Comment on above: Performed By: #### I NFLUAB #### [facility] [address] [place] [address] Dr. Benito Dupree MCV (RBC) [Entitic vol] 80.2 fL Critically low 81.0-99. 0 [facility] Comment on above: Performed By: #### I NFLUAB #### [facility] [address] [place] [address] Dr. Benito Dupree MONO # 0.5 103/ul Normal 0.3-0.8 [facility] Comment on above: Performed By: #### I NFLUAB #### [facility] [address] [address] [address] Benito Dupree Monocytes/100 WBC (Bld) 5.2 % Normal 1.7-12.0 [facility] Comment on above: Performed By: #### I NFLUAB #### [facility] [address] [address] [address] Benito Dupree NEUT # 6.1 103/ul Normal 1.4-6.5 [facility] Comment on above: Performed By: #### I NFLUAB #### [facility] [address] [address] [address] Benito Dupree Neutrophils/100 WBC (Bld) 66.0 % Normal 43.0-75.0 [facility] Comment on above: Performed By: #### I NFLUAB #### [facility] [address] [address] [address] Benito Dupree Platelet mean volume (Bld) [Entitic vol] 9.9 fL Normal 9.5-13.5 [facility] Comment on above: Performed By: #### I NFLUAB #### [facility] [address] [place] [address] Dr. Benito Dupree PLT 291 103/ul Normal 150-450 [facility] Comment on above: Performed By: #### I NFLUAB #### [facility] [address] [place] [address] Dr. Benito Dupree RBC 5.45 106/ul Critically high 4.20-5.40 [facility] Comment on above: Performed By: #### I NFLUAB #### [facility] [address] [place] [address] Dr. Benito Dupree WBC 9.3 103/ul Normal 4.0-11.0 [facility] Comment on above: Performed By: #### I NFLUAB #### [facility] [address] [address] [address] Benito Dupree DIRECT LDLon 08-18-2022 Cholesterol in LDL [Mass/Vol] 50 mg/dL Normal [facility] Comment on above: Performed By: #### T HYLC #### [facility] [address] [place] [address] Dr. Benito Dupree DLDL NORMAL SEE BELOW Normal [facility] Comment on above: Result Comment: <100 mg/dl OPTIMAL 100 - 129 mg/dl NEAR OR ABOVE OPTIMAL 130 - 159 mg/dl BORDERLINE HIGH 160 - 189 mg/dl HIGH >190 mg/dl VERY HIGH Performed By: #### T HYLC #### [facility] [address] [place] [address] Dr. Benito Dupree GLYCOHEMOGLOBIN A1Con 2021 ADA RECOMMENDATION SEE BELOW Normal [facility] Comment on above: Result Comment: ADA RECOMMENDED LIMIT 4.0 - 6.0 ADA THERAPEUTIC TARGET < 7.0 ACTION SUGGESTED > 7.0 Performed By: #### A 1C #### [facility] [address] [place] [address] Dr. Benito Dupree Glucose [Mass/Vol] 332 mg/dL Normal [facility] Comment on above: Performed By: #### A 1C #### [facility] [address] [place] [address] Dr. Benito Dupree HbA1c (Bld) [Mass fraction] 13.2 % Critically high 4.5-6.2 [facility] Comment on above: Performed By: #### A 1C #### [facility] [address] [place] [address] Dr. Benito Dupree IRONon 08-18-2022 Iron [Mass/Vol] 53.0 ug/dL Normal 50.0-170.0 [facility] Comment on above: Performed By: #### I NFLUAB #### [facility] [address] [place] [address] Dr. Benito Dupree LIPID PROFILEon 08-18-2022 CHOL-HDL RATIO NORM SEE BELOW Normal [facility] Comment on above: Result Comment: 3.3 - 4.4 LOW RISK 4.4 - 7.1 AVERAGE RISK 7.1 - 11.0 MODERATE RISK >11.0 HIGH RISK Performed By: #### T HYLC #### [facility] [address] [place] [address] Dr. Benito Dupree Cholesterol [Mass/Vol] 260 mg/dL Critically high <=200 [facility] Comment on above: Performed By: #### T HYLC #### [facility] [address] [place] [address] Dr. Benito Dupree Cholesterol in HDL [Mass/Vol] 23 mg/dL Critically low 40-60 [facility] Comment on above: Performed By: #### T HYLC #### [facility] [address] [place] [address] Dr. Benito Dupree Cholesterol.total/Lisandra sterol in HDL [Mass ratio] 11.3 {ratio} Normal [facility] Comment on above: Performed By: #### T HYLC #### [facility] [address] [place] [address] Dr. Benito Dupree HDL NORMAL > or = 60 mg/dl - LO W CARDIOVASCULAR RISK <40 mg/dl - HIGH CARDIOVASCULAR RISK Normal [facility] Comment on above: Performed By: #### T HYLC #### [facility] [address] [place] [address] Dr. Benito Dupree Triglyceride [Mass/Vol] 1711 mg/dL Critically high <=150 [facility] Comment on above: Performed By: #### T HYLC #### [facility] [address] [place] [address] Dr. Benito Dupree VLDL CALC 342.2 mg/dL Normal [facility] Comment on above: Performed By: #### T HYLC #### [facility] [address] [place] [address] Dr. Benito Dupree PROF 14(COMP METB)on 022 Albumin [Mass/Vol] 3.2 g/dL Critically low 3.4-5.[address] [facility] Comment on above: Performed By: #### T HYLC #### [facility] [address] [place] [address] Dr. Benito Dupree Albumin/Globulin [Mass ratio] 0.7 {ratio} Normal [facility] Comment on above: Performed By: #### T HYLC #### [facility] [address] [place] [address] Dr. Benito Dupree ALP [Catalytic activity/Vol] 92 U/L Normal 46-116 [facility] Comment on above: Performed By: #### T HYLC #### [facility] [address] [place] [address] Dr. Benito Dupree ALT [Catalytic activity/Vol] 41 U/L Normal 14-59 [facility] Comment on above: Performed By: #### T HYLC #### [facility] [address] [place] [address] Dr. Benito Dupree Anion gap [Moles/Vol] 14.1 mmol/L Normal Th [facility] Comment on above: Performed By: #### T HYLC #### [facility] [address] [address] [address] Benito Dupree AST [Catalytic activity/Vol] 16 U/L Normal 15-37 [facility] Comment on above: Performed By: #### T HYLC #### [facility] [address] [place] [address] Dr. Benito Dupree Bilirubin [Mass/Vol] 0.9 mg/dL Normal 0.2-1.0 [facility] Comment on above: Performed By: #### T HYLC #### [facility] [address] [place] [address] Dr. Benito Dupree Calcium [Mass/Vol] 9.1 mg/dL Normal 8.5-10.1 [facility] Comment on above: Performed By: #### T HYLC #### [facility] [address] [place] [address] Dr. Benito Dupree Chloride [Moles/Vol] 97 mmol/L Critically low 98-107 [facility] Comment on above: Performed By: #### T HYLC #### [facility] [address] [place] [address] Dr. Benito Dupree CO2 [Moles/Vol] 24.9 mmol/L Normal 21.0-32.0 [facility] Comment on above: Performed By: #### T HYLC #### [facility] [address] [place] [address] Dr. Benito Dupree Creatinine [Mass/Vol] 0.67 mg/dL Normal 0.55-1.02 [facility] Comment on above: Performed By: #### T HYLC #### [facility] [address] [place] [address] Dr. Benito Dupree EGFR-AF DOMINICAN >60 Normal >=60 [facility] Comment on above: Performed By: #### T HYLC #### [facility] [address] [address] [address] Benito Dupree EGFR-NON AF DOMINICAN >60 Normal >=60 [facility] Comment on above: Performed By: #### T HYLC #### [facility] [address] [address] [address] Benito Dupree Globulin (S) [Mass/Vol] 4.6 g/dL Normal [facility] Comment on above: Performed By: #### T HYLC #### [facility] [address] [address] [address] Benito Dupree Glucose [Mass/Vol] 402 mg/dL Critically high 74-106 [facility] Comment on above: Performed By: #### T HYLC #### [facility] [address] [address] [address] Benito Dupree Potassium [Moles/Vol] 4.0 mmol/L Normal 3.5-5.1 [facility] Comment on above: Performed By: #### T HYLC #### [facility] [address] [address] [address] Benito Dupree Protein [Mass/Vol] 7.8 g/dL Normal 6.4-8.2 [facility] Comment on above: Performed By: #### T HYLC #### [facility] [address] [address] [address] Benito Dupree Sodium [Moles/Vol] 132 mmol/L Critically low 136-145 [facility] Comment on above: Performed By: #### T HYLC #### [facility] [address] [address] [address] Benito Dupree Urea nitrogen [Mass/Vol] 10.0 mg/dL Normal 7.0-18.0 [facility] Comment on above: Performed By: #### T HYLC #### [facility] [address] [address] [address] Benito Dupree Urea nitrogen/Creatinine [Mass ratio] 14.9 mg/mg Normal [facility] Comment on above: Performed By: #### T HYLC #### [facility] [address] [place] [address] Dr. Benito Dupree TSHon 08-18-2022 TSH 3.676 uIU/mL Normal 0.358-3.740 [facility] Comment on above: Performed By: #### T HYLC #### [facility] [address] [place] [address] Dr. Benito Dupree VITAMIN D 25 OHon 08-18-2022 VIT D 25-OH 13.9 ng/mL Normal [facility] Comment on above: Performed By: #### I NFLUAB #### [facility] [address] [place] [address] Dr. Benito Dupree VIT D RANGES SEE BELOW Normal [facility] Comment on above: Result Comment: <20 ng/mL Vit D deficient 20 - <30 ng/mL Vit D insufficient 30 - 100 ng/mL Vit D sufficient >100 ng/mL Potential Toxicity Performed By: #### I NFLUAB #### [facility] [address] [place] [address] Dr. Benito Dupree AMYLASEon 06-01-2022 Amylase [Catalytic activity/Vol] 29 U/L Normal 25-115 [facility] Comment on above: Performed By: #### I NFLUAB #### [facility] [address] [place] [address] Dr. Benito Dupree CBC AUTO DIFFon 06-01-2022 BASO # 0.1 103/ul Normal 0.0-0.1 [facility] Comment on above: Performed By: #### I NFLUAB #### [facility] [address] [place] [address] Dr. Benito Dupree Basophils/100 WBC (Bld) 0.5 % Normal 0.2-2.0 [facility] Comment on above: Performed By: #### I NFLUAB #### [facility] [address] [place] [address] Dr. Benito Dupree EO # 0.3 103/ul Normal 0.0-0.7 [facility] Comment on above: Performed By: #### I NFLUAB #### [facility] [address] [place] [address] Dr. Benito Dupree Eosinophils/100 WBC (Bld) 2.0 % Normal 0.9-7.0 [facility] Comment on above: Performed By: #### I NFLUAB #### [facility] [address] [place] [address] Dr. Benito Dupree Erythrocyte distribution width (RBC) [Ratio] 15.3 % Critically high 11.0-15.0 [facility] Comment on above: Performed By: #### I NFLUAB #### [facility] [address] [place] [address] Dr. Benito Dupree Hematocrit (Bld) [Volume fraction] 41.5 % Normal 36.0-48.0 [facility] Comment on above: Performed By: #### I NFLUAB #### [facility] [address] [place] [address] Dr. Benito Dupree Hemoglobin (Bld) [Mass/Vol] 12.7 g/dL Normal 12.0-16.0 [facility] Comment on above: Performed By: #### I NFLUAB #### [facility] [address] [place] [address] Dr. Benito Dupree IG # 0.06 10e3/ul Critically high 0.00-0.03 [facility] Comment on above: Performed By: #### I NFLUAB #### [facility] [address] [place] [address] Dr. Benito Dupree IG % 0.4 % Normal 0.0-0.5 [facility] Comment on above: Performed By: #### I NFLUAB #### [facility] [address] [place] [address] Dr. Benito Dupree LYMPH # 1.9 103/ul Normal 1.2-3.8 [facility] Comment on above: Performed By: #### I NFLUAB #### [facility] [address] [place] [address] Dr. Benito Dupree Lymphocytes/100 WBC (Bld) 13.9 % Critically low 20.5-60.0 [facility] Comment on above: Performed By: #### I NFLUAB #### [facility] [address] [place] [address] Dr. Benito Dupree MANUAL DIFF REQ NO Normal [facility] Comment on above: Performed By: #### I NFLUAB #### [facility] [address] [place] [address] Dr. Benito Dupree MCH (RBC) [Entitic mass] 24.7 pg Critically low 26.7-34.0 [facility] Comment on above: Performed By: #### I NFLUAB #### [facility] [address] [place] [address] Dr. Benito Dupree MCHC (RBC) [Mass/Vol] 30.6 g/dL Normal 29.9-35.2 [facility] Comment on above: Performed By: #### I NFLUAB #### [facility] [address] [place] [address] Dr. Benito Dupree MCV (RBC) [Entitic vol] 80.6 fL Critically low 81.0-99. 0 [facility] Comment on above: Performed By: #### I NFLUAB #### [facility] [address] [place] [address] Dr. Benito Dupree MONO # 0.5 103/ul Normal 0.3-0.8 [facility] Comment on above: Performed By: #### I NFLUAB #### [facility] [address] [place] [address] Dr. Bneito Dupree Monocytes/100 WBC (Bld) 4.0 % Normal 1.7-12.0 [facility] Comment on above: Performed By: #### I NFLUAB #### [facility] [address] [place] [address] Dr. Benito Dupree NEUT # 10.6 103/ul Critically high 1.4-6.5 [facility] Comment on above: Performed By: #### I NFLUAB #### [facility] [address] [place] [address] Dr. Benito Dupree Neutrophils/100 WBC (Bld) 79.2 % Critically high 43.0-75.0 [facility] Comment on above: Performed By: #### I NFLUAB #### [facility] [address] [place] [address] Dr. Benito Dupree Platelet mean volume (Bld) [Entitic vol] 9.3 fL Critically low 9.5-13.5 [facility] Comment on above: Performed By: #### I NFLUAB #### [facility] [address] [place] [address] Dr. Benito Dupree PLT 391 103/ul Normal 150-450 [facility] Comment on above: Performed By: #### I NFLUAB #### [facility] [address] [place] [address] Dr. Benito Dupree RBC 5.15 106/ul Normal 4.20-5.40 [facility] Comment on above: Performed By: #### I NFLUAB #### [facility] [address] [place] [address] Dr. Benito Dupree WBC 13.4 103/ul Critically high 4.0-11.0 [facility] Comment on above: Performed By: #### I NFLUAB #### [facility] [address] [place] [address] ABD/PELV W CONon [...] WESTLEY JHA Date: 2022-06-01 14:59 Normal [facility] [facility] URINE PROFILEon 2 Bilirubin Ql (U) Negative Normal NEGATIVE [facility] Comment on above: Performed By: #### U MICRO, ERUR #### [facility] [address] [place] [address] Dr. Benito Dupree Clarity (U) SL CLOUDY Abnormal CLEAR The [facility] Comment on above: Performed By: #### U MICRO, ERUR #### [facility] [address] [address] [address] Benito Dupree Color (U) YELLOW Normal YELLOW The [facility] Comment on above: Performed By: #### U MICRO, ERUR #### [facility] [address] [address] [address] Benito Dupree ERUJUAND A micrscopic examination will be performed if indicated. Normal The [facility] Comment on above: Performed By: #### U MICRO, ERUR #### [facility] [address] [address] [address] Benito Dupree Glucose Ql (U) Negative Normal NEGATIVE [facility] Comment on above: Performed By: #### U MICRO, ERUR #### [facility] [address] [address] [address] Benito Dupree Hemoglobin Ql (U) LARGE Abnormal NEGATIVE [facility] Comment on above: Performed By: #### U MICRO, ERUR #### [facility] [address] [place] [address] Dr. Benito Dupree Ketones Ql (U) Negative Normal NEGATIVE [facility] Comment on above: Performed By: #### U MICRO, ERUR #### [facility] [address] [place] [address] Dr. Benito Dupree LEUKOCYTES Negative Normal NEGATIVE [facility] Comment on above: Performed By: #### U MICRO, ERUR #### [facility] [address] [place] [address] Dr. Benito Dupree Nitrite Ql (U) Negative Normal NEGATIVE [facility] Comment on above: Performed By: #### U MICRO, ERUR #### [facility] [address] [place] [address] Dr. Benito Dupree pH (U) 5.5 [pH] Normal 5-9 [facility] Comment on above: Performed By: #### U MICRO, ERUR #### [facility] [address] [place] [address] Dr. Benito Dupree SPEC GRAVITY 1.010 Normal 1.005-<=1.0 25 [facility] Comment on above: Performed By: #### U MICRO, ERUR #### [facility] [address] [place] [address] Dr. Benito Dupree UA PROTEIN TRACE Normal NEGATIVE/ TRACE [facility] Comment on above: Performed By: #### U MICRO, ERUR #### [facility] [address] [place] [address] Dr. Benito Dupree UR MICRO IND INDICATED Normal [facility] Comment on above: Performed By: #### U MICRO, ERUR #### [facility] [address] [place] [address] Dr. Benito Dupree Urobilinogen Qn (U) 1.0 {Tuyet'U}/dL Normal 0.2 - 1. 0 [facility] Comment on above: Performed By: #### U MICRO, ERUR #### [facility] [address] [place] [address] Dr. Benito Dupree LACTATE/LACTIC ACIDon 2021 Lactate [Moles/Vol] 1.1 mmol/L Normal 0.4-1.9 [facility] Comment on above: Performed By: #### L ACT #### [facility] [address] [address] [address] Benito Dupree LIPASEon 06-01-2022 Lipase [Catalytic activity/Vol] 111.0 U/L Normal 73.0-393.0 [facility] Comment on above: Performed By: #### I NFLUAB #### [facility] [address] [place] [address] Dr. Benito Dupree PREG HCG QUALon 06-01-2022 , QUAL Negative Normal NEGATIVE [facility] Comment on above: Performed By: #### P REG #### [facility] [address] [place] [address] Dr. Benito Dupree PROF 14(COMP METB)on 022 Albumin [Mass/Vol] 3.6 g/dL Normal 3.4-5.0 [facility] Comment on above: Performed By: #### I NFLUAB #### [facility] [address] [place] [address] Dr. Benito Dupree Albumin/Globulin [Mass ratio] 0.7 {ratio} Normal [facility] Comment on above: Performed By: #### I NFLUAB #### [facility] [address] [place] [address] Dr. Benito Dupree ALP [Catalytic activity/Vol] 90 U/L Normal 46-116 [facility] Comment on above: Performed By: #### I NFLUAB #### [facility] [address] [place] [address] Dr. Benito Dupree ALT [Catalytic activity/Vol] 39 U/L Normal 14-59 [facility] Comment on above: Performed By: #### I NFLUAB #### [facility] [address] [place] [address] Dr. Benito Dupree Anion gap [Moles/Vol] 13.0 mmol/L Normal [facility] Comment on above: Performed By: #### I NFLUAB #### [facility] [address] [place] [address] Dr. Benito Dupree AST [Catalytic activity/Vol] 25 U/L Normal 15-37 [facility] Comment on above: Performed By: #### I NFLUAB #### [facility] [address] [address] [address] Benito Dupree Bilirubin [Mass/Vol] 1.1 mg/dL Critically high 0.2-1.0 [facility] Comment on above: Performed By: #### I NFLUAB #### [facility] [address] [place] [address] Dr. Benito Dupree Calcium [Mass/Vol] 9.4 mg/dL Normal 8.5-10.1 [facility] Comment on above: Performed By: #### I NFLUAB #### [facility] [address] [address] [address] Benito Dupree Chloride [Moles/Vol] 99 mmol/L Normal 98-107 [facility] Comment on above: Performed By: #### I NFLUAB #### [facility] [address] [place] [address] Dr. Benito Dupree CO2 [Moles/Vol] 27.3 mmol/L Normal 21.0-32.0 [facility] Comment on above: Performed By: #### I NFLUAB #### [facility] [address] [place] [address] Dr. Benito Dupree Creatinine [Mass/Vol] 0.87 mg/dL Normal 0.55-1.02 [facility] Comment on above: Performed By: #### I NFLUAB #### [facility] [address] [place] [address] Dr. Benito Dupree EGFR-AF DOMINICAN >60 Normal >=60 [facility] Comment on above: Performed By: #### I NFLUAB #### [facility] [address] [place] [address] Dr. Benito Dupree EGFR-NON AF DOMINICAN >60 Normal >=60 [facility] Comment on above: Performed By: #### I NFLUAB #### [facility] [address] [place] [address] Dr. Benito Dupree Globulin (S) [Mass/Vol] 4.8 g/dL Normal T [facility] Comment on above: Performed By: #### I NFLUAB #### [facility] [address] [address] [address] Benito Dupree Glucose [Mass/Vol] 218 mg/dL Critically high 74-106 [facility] Comment on above: Performed By: #### I NFLUAB #### [facility] [address] [address] [address] Benito Dupree Potassium [Moles/Vol] 4.1 mmol/L Normal 3.5-5.1 [facility] Comment on above: Performed By: #### I NFLUAB #### [facility] [address] [place] [address] Dr. Benito Dupree Protein [Mass/Vol] 8.4 g/dL Critically high 6.4-8.2 [facility] Comment on above: Performed By: #### I NFLUAB #### [facility] [address] [place] [address] Dr. Benito Dupree Sodium [Moles/Vol] 135 mmol/L Critically low 136-145 [facility] Comment on above: Performed By: #### I NFLUAB #### [facility] [address] [place] [address] Dr. Benito Dupree Urea nitrogen [Mass/Vol] 15.0 mg/dL Normal 7.0-18.0 [facility] Comment on above: Performed By: #### I NFLUAB #### [facility] [address] [place] [address] Dr. Benito Dupree Urea nitrogen/Creatinine [Mass ratio] 17.2 mg/mg Normal [facility] Comment on above: Performed By: #### I NFLUAB #### [facility] [address] [place] [address] Dr. Benito Dupree URINE MICROSCOPIC ONLYon BACTERIA TRACE Abnormal NONE SEEN [facility] Comment on above: Performed By: #### U MICRO, ERUR #### [facility] [address] [place] [address] Dr. Benito Dupree Bacteria identified Cx Nom (U) NOT INDICATED Normal [facility] Comment on above: Performed By: #### U MICRO, ERUR #### [facility] [address] [address] [address] Benito Dupree CAST NONE SEEN Normal NONE SEEN The [facility] Comment on above: Performed By: #### U MICRO, ERUR #### [facility] [address] [place] [address] Dr. Benito Dupree Crystals LM Nom (Urine sed) NONE SEEN Normal NONE SEEN The [facility] Comment on above: Performed By: #### U MICRO, ERUR #### [facility] [address] [address] [address] Benito Dupree Epithelial cells LM Ql (Urine sed) MODERATE Abnormal NONE SEEN /RARE The [facility] Comment on above: Performed By: #### U MICRO, ERUR #### [facility] [address] [place] [address] Dr. Benito Dupree MUCOUS TRACE Abnormal NONE SEEN The [facility] Comment on above: Performed By: #### U MICRO, ERUR #### [facility] [address] [place] [address] Dr. Benito Dupree RBC 2-5 Abnormal 0-2 The [facility] Comment on above: Performed By: #### U MICRO, ERUR #### [facility] [address] [place] [address] Dr. Benito Dupree WBC 0-2 Abnormal NONE SEEN The [facility] Comment on above: Performed By: #### U MICRO, ERUR #### [facility] [address] [place] [address] Dr. Benito Dupree XR hand RT min 3V*on 022 XR hand RT min 3V* [facility] [employer] Other XR hand RT min 3V* [facility] [employer] Other XR hand RT min 3V* [address] [place] [address] [employer] Other XR hand RT min 3V* [place] [id number] [facility] [employer] Other XR hand RT min 3V* XRzehra Almazan [facility] [employer] Other XR hand RT min 3V* Signed [employer] Other XR hand RT min 3V* Patient: Noel Paul MR#: [id number] [employer] Other XR hand RT min 3V* : 1990 Acct:[id number] [employer] Other XR hand RT min 3V* Age/Sex: 31 / F ADM Date: 03/22/22 [employer] Other XR hand RT min 3V* Loc: XDUCLY Room: Type: [facility] [employer] Other XR hand RT min 3V* Attending Dr: Monique SANDOVAL [employer] Other XR hand RT min 3V* Ordering Provider: LORI Dias [employer] Other XR hand RT min 3V* Date of Service: 03/22/22 [employer] Other XR hand RT min 3V* XR/XR hand RT min 3V*: Finger pain, right [employer] Other XR hand RT min 3V* Copies to: LORI Dias [employer] Other XR hand RT min 3V* 3 viewsRIGHT hand plain film [facility] Other XR hand RT min 3V* COMPARISON:None N [employer] Other XR hand RT min 3V* HISTORY:Fell going upstairs. RIGHT ring finger injury. [facility] Other XR hand RT min 3V* No fracture, dislocation or focal soft tissue abnormality seen. [facility] Other XR hand RT min 3V* XR/XR hand RT min 3V* [employer] Other XR hand RT min 3V* IMPRESSION:No acute findings [employer] Other XR hand RT min 3V* Impression dictated by: Ta Galvna M.D.03/22/2022 4:42 PM [facility] Other XR hand RT min 3V* Dictation Location: [place] [address] [employer] [facility] [employer] Other XR hand RT min 3V* Transcribed By: [facility] 03/22/22 [facility] [employer] Other XR hand RT min 3V* Dictated By: Ta Galvan DO 03/22/22 [facility] [employer] Other XR hand RT min 3V* Signed By: [facility] Other XR hand RT min 3V* 03/22/[address] [place] [address] [employer] Other Vital Signs Date Time Vital Sign Value Performing Clinician Facility 02-05-2025 17:00-0400 Body height 157.48 cm [facility] 02-05-2025 17:00-0400 Body mass index (BMI) [Ratio] 59.2 kg/m2 02-05-2025 17:00-0400 Body temperature 98.2 [degF] [facility] 02-05-2025 17:00-0400 Body weight 146.96 kg [facility] 02-05-2025 17:00-0400 Diastolic blood pressure 91 mm[Hg] 02-05-2025 17:00-0400 Heart rate 82 /min [facility] 02-05-2025 17:00-0400 Respiratory rate 18 /min [facility] 02-05-2025 17:00-0400 SaO2% (BldA) [Mass fraction] 98 % 02-05-2025 17:00-0400 Systolic blood pressure 151 mm[Hg] 12-28-2024 09:54-0500 Body height 157.5 cm Pac 3 Work Phone: [facility] 12-28-2024 09:54-0500 Body mass index (BMI) [Ratio] 62.06 kg/m2 Pacc 3 Work Phone: [facility] 12-28-2024 09:54-0500 Body temperature 97.39 [degF] Pacc 3 Work Phone: [facility] 12-28-2024 09:54-0500 Body weight 153.9 kg Pacc 3 Work Phone: [facility] 12-28-2024 09:54-0500 Diastolic blood pressure 73 mm[Hg] Pacc 3 Work Phone: [facility] 12-28-2024 09:54-0500 Heart rate 104 /min Pacc 3 Work Phone: [facility] 12-28-2024 09:54-0500 Respiratory rate 16 /min Pacc 3 Work Phone: [facility] 12-28-2024 09:54-0500 SaO2% (BldA) [Mass fraction] 98 % Pacc 3 Work Phone: [facility] 12-28-2024 09:54-0500 Systolic blood pressure 130 mm[Hg] Pacc 3 Work Phone: [facility] 10-24-2024 14:24-0500 Body height 157.5 cm Pato Avelar DPM Work Phone: [facility] 10-24-2024 14:24-0500 Body mass index (BMI) [Ratio] 56.7 kg/m2 Pato Brown DPM Work Phone: [facility] 10-24-2024 14:24-0500 Body weight 140.62 kg Pato Brown DPM Work Phone: [facility] 10-24-2024 14:24-0500 Respiratory rate 18 /min Pato Avelar DPM Work Phone: [facility] 10-04-2024 14:48-0500 Body height 157.5 cm Pato Avelar DPM Work Phone: [facility] 10-04-2024 14:48-0500 Body mass index (BMI) [Ratio] 56.7 kg/m2 Pato Brown DPM Work Phone: [facility] 10-04-2024 14:48-0500 Body weight 140.62 kg Pato Brown DPM Work Phone: [facility] 10-04-2024 14:48-0500 Diastolic blood pressure 79 mm[Hg] Pato Brown DPM Work Phone: [facility] 10-04-2024 14:48-0500 Heart rate 82 /min Pato Brown DPM Work Phone: [facility] 10-04-2024 14:48-0500 Systolic blood pressure 129 mm[Hg] Pato Brown DPM Work Phone: [facility] 09-20-2024 14:37-0400 Body height 157.5 cm Pato Brown DPM Work Phone: [facility] 09-20-2024 14:37-0400 Body mass index (BMI) [Ratio] 56.7 kg/m2 Pato Brown DPM Work Phone: [facility] 09-20-2024 14:37-0400 Body weight 140.62 kg Pato Avelar DPM Work Phone: [facility] 09-20-2024 14:37-0400 Diastolic blood pressure 77 mm[Hg] Pato Brown DPM Work Phone: [facility] 09-20-2024 14:37-0400 Heart rate 79 /min Pato Brown DPM Work Phone: [facility] 09-20-2024 14:37-0400 Systolic blood pressure 126 mm[Hg] Pato Brown DPM Work Phone: [facility] 09-13-2024 14:46-0400 Body height 157.5 cm Pato Avelar DPM Work Phone: [facility] 09-13-2024 14:46-0400 Body mass index (BMI) [Ratio] 56.7 kg/m2 Pato Avelar DPM Work Phone: [facility] 09-13-2024 14:46-0400 Body weight 140.62 kg Pato Avelar DPM Work Phone: [facility] 09-13-2024 14:46-0400 Diastolic blood pressure 78 mm[Hg] Pato Avelar DPM Work Phone: [facility] 09-13-2024 14:46-0400 Heart rate 85 /min Pato Avelar DPM Work Phone: [facility] 09-13-2024 14:46-0400 Systolic blood pressure 123 mm[Hg] Pato Avelar DPM Work Phone: [facility] 08-30-2024 14:58-0400 Body height 157.5 cm Pato Avelar DPM Work Phone: [facility] 08-30-2024 14:58-0400 Body mass index (BMI) [Ratio] 56.7 kg/m2 Pato Avelar DPM Work Phone: [facility] 08-30-2024 14:58-0400 Body weight 140.62 kg Pato Avelar DPM Work Phone: [facility] 08-30-2024 14:58-0400 Diastolic blood pressure 80 mm[Hg] Patoanuj Avelar DPM Work Phone: [facility] 08-30-2024 14:58-0400 Heart rate 75 /min Pato Brown DPM Work Phone: [facility] 08-30-2024 14:58-0400 Respiratory rate 18 /min Pato Rodo DPM Work Phone: [facility] 08-30-2024 14:58-0400 Systolic blood pressure 128 mm[Hg] Pato Brown DPM Work Phone: [facility] 08-02-2024 14:52-0400 Body height 157.5 cm Pato Avelar DPM Work Phone: [facility] 08-02-2024 14:52-0400 Body mass index (BMI) [Ratio] 56.7 kg/m2 Pato Avelar DPM Work Phone: [facility] 08-02-2024 14:52-0400 Body weight 140.62 kg Pato Avelar DPM Work Phone: [facility] 08-02-2024 14:52-0400 Diastolic blood pressure 79 mm[Hg] Pato Avelar DPM Work Phone: [facility] 08-02-2024 14:52-0400 Heart rate 82 /min Pato Avelar DPM Work Phone: [facility] 08-02-2024 14:52-0400 Systolic blood pressure 127 mm[Hg] Pato Avelar DPM Work Phone: [facility] 07-24-2024 14:58-0400 Body height 157.5 cm Jaime Biedenbach DO Work Phone: [facility] 07-24-2024 14:58-0400 Body mass index (BMI) [Ratio] 56.7 kg/m2 Jaime Biedenbach DO Work Phone: [facility] 07-24-2024 14:58-0400 Body weight 140.62 kg Jaime Biedenbach DO Work Phone: [facility] 05-16-2024 15:25-0400 Diastolic blood pressure 70 mm[Hg] [employer]ODUCTION MATERIAL COORDINATOR-C Monique Whitleymer Work Phone: 05-16-2024 15:25-0400 Heart rate 80 /min [employer]ODUCTION MATERIAL COORDINATOR-C Monique Lien Work Phone: 05-16-2024 15:25-0400 Respiratory rate 22 /min [employer] MATERIAL COORDINATOR-C Monique Lien Work Phone: 05-16-2024 15:25-0400 SaO2% (BldA) [Mass fraction] 94 % [employer]ODUCTION MATERIAL COORDINATOR-C Monique Emmanuel Work Phone: 05-16-2024 15:25-0400 Systolic blood pressure 124 mm[Hg] PRODUCTION MATERIAL COORDINATOR-C Monique Emmanuel Work Phone: 05-16-2024 12:57-0400 Body temperature 98.6 [degF] [employer]ODUCTION MATERIAL COORDINATOR-C Monique Emmanuel Work Phone: 05-16-2024 12:57-0400 Inhaled oxygen flow rate 6 L/min [employer]ODUCTION MATERIAL COORDINATOR-C Monique Emmanuel Work Phone: 05-16-2024 10:38-0400 Body mass index (BMI) [Ratio] 56.5 kg/m2 [employer]ODUCTION MATERIAL COORDINATOR-C Monique Emmanuel Work Phone: 05-16-2024 10:31-0400 Body height 157.48 cm [employer]ODUCTION MATERIAL COORDINATOR-C Monique Emmanuel Work Phone: 05-16-2024 10:31-0400 Body weight 140.16 kg [employer]ODUCTION MATERIAL COORDINATOR-C Monique Emmanuel Work Phone: 04-25-2024 13:27-0400 Diastolic blood pressure 85 mm[Hg] Pato [facility] 04-25-2024 13:27-0400 Heart rate 64 /min Pato Avel[facility] 04-25-2024 13:27-0400 Mean blood pressure 103 mm[Hg] Pato Avelar [facility] 04-25-2024 13:27-0400 Systolic blood pressure 139 mm[Hg] Pato Avelar [facility] 04-25-2024 13:26-0400 Heart rate 65 /min Pato Avelar [facility] 04-25-2024 13:26-0400 Respiratory rate 16 /min Pato Avelar [facility] 04-25-2024 13:26-0400 SaO2% (BldA) [Mass fraction] 93 % Pato Avelar [facility] 04-25-2024 13:26-0400 Blood Pressure Location Pato Avelar [facility] 04-25-2024 13:26-0400 Body temperature 98.42 [degF] Pato Avelar [facility] 04-25-2024 13:26-0400 Diastolic blood pressure 83 mm[Hg] Pato Rodo [facility] 04-25-2024 13:26-0400 Mean blood pressure 100 mm[Hg] Pato Rodo [facility] 04-25-2024 13:26-0400 Systolic blood pressure 135 mm[Hg] Pato Avelar [facility] 02-27-2024 17:36-0400 Body height 154.94 cm PRODUCTION MATERIAL COORDINATOR-C Moniquegisselle Emmanuel Work Phone: 02-27-2024 17:36-0400 Body mass index (BMI) [Ratio] 58.4 kg/m2 [employer]ODUCTION MATERIAL COORDINATOR-C Monique Lien Work Phone: 02-27-2024 17:36-0400 Body temperature 97.7 [degF] [employer]ODUCTION MATERIAL COORDINATOR-C Monique Emmanuel Work Phone: 02-27-2024 17:36-0400 Body weight 140.38 kg PRODUCTION MATERIAL COORDINATOR-C Monique Emmanuel Work Phone: 02-27-2024 17:36-0400 Heart rate 87 /min [employer]ODUCTION MATERIAL COORDINATOR-C Monique Emmanuel Work Phone: 02-27-2024 17:36-0400 Respiratory rate 18 /min [employer]ODUCTION MATERIAL COORDINATOR-C Monique Emmanuel Work Phone: 02-27-2024 17:36-0400 SaO2% (BldA) [Mass fraction] 97 % [employer]ODUCTION MATERIAL COORDINATOR-C Monique Emmanuel Work Phone: 03-22-2022 16:45-0400 Body height 154.94 cm Monique Dudley Other [facility] Other 03-22-2022 16:45-0400 Body mass index (BMI) [Ratio] 58.38 kg/m2 Monique Dudley Other [facility] Other 03-22-2022 16:45-0400 Body temperature 97.9 [degF] Monique Suemond Other [facility] Other 03-22-2022 16:45-0400 Body weight 140.16 kg Monique Dudley Other [facility] Other 03-22-2022 16:45-0400 Diastolic blood pressure 93 mm[Hg] Monique Suemond Other [facility] Other 03-22-2022 16:45-0400 Respiratory rate 20 /min Monique Suemond Other [facility] Other 03-22-2022 16:45-0400 SaO2% (BldA) [Mass fraction] 98 % Monique Suemond Other [facility] Other 03-22-2022 16:45-0400 Systolic blood pressure 154 mm[Hg] Monique Octavia Other [facility] Other Encounters Encounter Date Encounter Type Care Provider Facility Start: 02-20-2025 End: 02-20-2025 Telephone encounter Sean Mata DPM Work Phone: [facility] Comment on above: Patient Update Start: 02-13-2025 End: 02-13-2025 Patient encounter procedure Maura M Theresa RT(R) Radiology Comment on above: S/P foot surgery, ri ght (Primary Dx) Start: 02-13-2025 End: 02-13-2025 ambulatory Maura Barraza Theresa RT(R) Radiology Comment on above: Radio Gen RMP Start: 02-13-2025 End: 02-13-2025 Subsequent hospital visit by physician Saúl Martínez 1 Work Phone: Radiology Comment on above: S/P foot surgery, ri ght [Z98.890] Start: 02-05-2025 End: 02-05-[address] [facility] Work Phone: Start: 02-05-2025 End: 02-05-2025 Patient encounter procedure [facility] Work Phone: Start: 01-23-2025 End: 01-23-2025 ambulatory MONIQUE EMMANUEL Facility:[facility] Start: 01-23-2025 End: 01-23-2025 Patient encounter procedure Sean Mata DPM Work Phone: Orthopaedics Comment on above: S/P foot surgery, ri ght (Primary Dx); Accessory navicular bone of right foot S/P foot surgery, ri ght (Primary Dx) Start: 01-23-2025 ambulatory SEAN MATA Fac ility:[facility] Start: 01-09-2025 End: 01-09-2025 ambulatory SEAN MATA Facility:[facility] Start: 01-09-2025 End: 01-09-2025 Patient encounter procedure Sean Mata DPM Work Phone: Orthopaedics Comment on above: S/P foot surgery, ri ght (Primary Dx); Accessory navicular bone of right foot S/P foot surgery, ri ght (Primary Dx) Start: 01-02-2025 End: 01-02-2025 Telephone encounter Sean LEDESMAM Work Phone: Orthopaedics Start: 12-31-2024 End: 01-01-2025 Telephone encounter Sean LEDESMAM Work Phone: [facility] Comment on above: Surgical Followup Start: 12-31-2024 End: 12-31-2024 ambulatory SHANAAZAM MARINERT Facility:[facility] Start: 12-28-2024 End: 12-28-2024 Admission to [place] [address] Work Phone: Pre Anesthesia Start: 12-28-2024 End: 12-28-2024 ambulatory [facility] Facility:[facility] Start: 12-28-2024 End: 12-28-2024 Anesthesia consultation [facility] Work Phone: Pre Anesthesia Comment on above: Pre-op evaluation (P rimary Dx); Gastroesophageal reflux disease, 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 esophagitis present; Diabetes mellitus without complication (HCC); BMI 60.0-69.9, adult (HCC); AQUILES (obstructive sleep apnea) Start: 12-28-2024 Encounter for other preprocedural examination SEAN MATA [facility] Start: 12-28-2024 End: 12-28-2024 Preprocedural examination done [facility] 3 Work Phone: [facility] Work Phone: Start: 12-14-2024 End: 12-14-2024 [...] 12-12-2024 Subsequent hospital visit by physician Saúl Andrews Work Phone: Radiology Comment on above: Pain [R52] Start: 12-05-2024 End: 01-02-2025 Orders Only Sean Mata DPM Work Phone: Orth and Rheum [facility] Comment on above: Pain (Primary Dx) Start: 11-26-2024 End: 11-26-2024 ambulatory [facility] Start: 10-24-2024 End: 10-24-2024 Postop follow up visit related to original px Pato Avelar DPM Work Phone: [facility] Comment on above: Stress fracture of r ight foot, initial encounter (Primary Dx); Type 2 diabetes mellitus without complication, 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 long term care administrator insulin use ([facility]); Accessory navicular bone of right foot Start: 10-24-2024 End: 10-24-2024 ambulatory PATO AVELAR Not Available Start: 10-24-2024 End: 10-24-2024 Bamboo flowsheet Pato Avelar DPM Work Phone: [facility] Start: 10-24-2024 End: 10-24-2024 Bamboo flowsheet Pato Avelar DPM Work Phone: [facility] Start: 10-04-2024 End: 10-04-2024 Postop follow up visit related to original px Pato Elizabeth Brown DPM Work Phone: [facility] Comment on above: 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); Contracture of right ankle; Stress fracture of right foot, initial encounter Start: 10-04-2024 End: 10-04-2024 ambulatory PATO AVELAR Not Available Start: 10-04-2024 End: 10-04-2024 Bamboo flowsheet Pato Avelar DPM Work Phone: [facility] Start: 10-04-2024 End: 10-04-2024 Bamboo flowsheet Pato Avelar DPM Work Phone: [facility] Start: 09-20-2024 End: 09-20-2024 Postop follow up visit related to original px Pato Elizabeth Rodo DPM Work Phone: [facility] Comment on above: 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); Contracture of right ankle Start: 09-20-2024 End: 09-20-2024 ambulatory PATO AVELAR Not Available Start: 09-20-2024 End: 09-20-2024 Bamboo flowsheet Pato Avelar DPM Work Phone: [facility] Start: 09-20-2024 End: 09-20-2024 Bamboo flowsheet Pato Avelar DPM Work Phone: [facility] Start: 09-13-2024 End: 09-13-2024 Postop follow up visit related to original px Pato Elizabeth Rodo DPM Work Phone: [facility] Comment on above: 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); Contracture of right ankle; Type 2 diabetes mellitus without complication, 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 long term care administrator insulin use ([facility]) Start: 09-13-2024 End: 09-13-2024 ambulatory PATO AVELAR Not Available Start: 09-07-2024 End: 09-07-2024 Telephone encounter Pato Avelar DPM Work Phone: [facility] Start: 09-05-2024 End: 09-05-2024 Lab Drop off [facility]o [facility] Start: 09-05-2024 End: 09-05-2024 ambulatory DPM Pato Avelar [place] Start: 08-30-2024 End: 08-30-2024 Office outpatient visit 25 minutes Pato Avelar DPM Work Phone: [facility] Comment on above: 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); Type 2 diabetes mellitus without complication, 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 longterm insulin use ([facility]); Heel spur, left; Plantar fasciitis; Contracture of left ankle; Contracture of right ankle Start: 08-30-2024 End: 08-30-2024 ambulatory PATO AVELAR Not Available Start: 08-30-2024 End: 08-30-2024 Bamboo flowsheet Pato Avelar DPM Work Phone: [facility] Start: 08-30-2024 End: 08-30-2024 Bamboo flowsheet Pato Avelar DPM Work Phone: [facility] Start: 08-02-2024 End: 08-02-2024 Office outpatient visit 15 minutes Pato Avelar DPM Work Phone: [facility] Comment on above: 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); Posterior tibial tendonitis of right leg; Type 2 diabetes mellitus without complication, 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 longterm insulin use ([facility]) Start: 08-02-2024 End: 08-02-2024 ambulatory PATO AVELAR Not Available Start: 08-02-2024 End: 08-02-2024 Bamboo flowsheet Pato Avelar DPM Work Phone: [facility] Start: 08-02-2024 End: 08-02-2024 Bamboo flowsheet Pato Avelar DPM Work Phone: [facility] Start: 07-24-2024 End: 07-24-2024 Office outpatient new 45 minutes Jaime Cmaargo DO Work Phone: [facility] Comment on above: Arthralgia of left t emporomandibular joint (Primary Dx); Left ear pain; Chronic rhinitis; Fullness in ear, left Start: 07-24-2024 End: 07-24-2024 ambulatory JAIME CAMARGO Not Available Start: 07-24-2024 End: 07-24-2024 Bamboo flowsheet Jaime Camargo DO Work Phone: [facility] Start: 07-24-2024 End: 07-24-2024 Bamboo flowsheet Jaime Camargo DO Work Phone: [facility] Start: 07-19-2024 End: 07-19-2024 Office outpatient visit 15 minutes Pato Avelar DPM Work Phone: [facility] Comment on above: Posterior tibial ten donitis of right leg (Primary Dx); Accessory navicular bone of left foot; Type 2 diabetes mellitus without complication, 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 longterm insulin use ([facility]); Accessory navicular bone of right foot [...] 05-16-2024 Admission to same day surgery center LORI Emmanuel Work Phone: [facility] Start: 05-16-2024 End: 05-16-2024 ambulatory PRODUCTION MATERIAL COORDINATOR-C Monique Alciia Lien Work Phone: [facility] Work Phone: Start: 05-03-2024 End: 05-03-2024 ambulatory PATO AVELAR Not Available Start: 04-25-2024 ambulatory Pato Avelar [place] Start: 04-25-2024 End: 04-25-2024 ambulatory DPM Pato Avelar [place] Start: 04-25-2024 End: 04-25-2024 Patient encounter procedure [facility] Start: 04-16-2024 End: 05-10-2024 Pre-admission assessment Pato [facility]vel[facility] Start: 04-12-2024 End: 04-12-2024 ambulatory PATO AVELAR Not Available Start: 03-29-2024 End: 03-29-2024 ambulatory PATO AVELAR Not Available Start: 02-27-2024 End: 02-27-2024 ambulatory PRODUCTION MATERIAL COORDINATOR-C Monique Alicia Lien Work Phone: [facility] Work Phone: Start: 02-27-2024 End: 02-27-2024 Patient encounter procedure PRODUCTION MATERIAL COORDINATOR-C Monique Emmanuel Work Phone: [facility] Work Phone: Start: 04-27-2023 ambulatory MONIQUEGISSELLE EMMANUEL Facility: [facility] Start: 01-05-2023 End: 01-05-2023 ambulatory MONIQUEGISSELLE WHITLEYMER Facility:[facility] Start: 11-28-2022 End: 11-29-2022 ambulatory MONIQUEGISSELLE WHITLEYMER Facility:[facility] Start: 11-15-2022 End: 11-16-2022 ambulatory MONIQUEGISSELLE WHITLEYMER Facility:[facility] Start: 10-25-2022 End: 11-27-2022 ambulatory MONIQUEGISSELLE WHITLEYMER Facility:[facility] Start: 08-25-2022 End: 08-26-2022 ambulatory MONIQUE EMMANUEL Facility:[facility] Start: 08-19-2022 Encounter for genera l adult medical examination without abnormal findings MONIQUE EMMANUEL [facility] Start: 08-18-2022 End: 08-19-2022 ambulatory MONIQUE LIEN Facility:[facility] Start: 08-18-2022 End: 08-19-2022 Encounter for general adult medical examination without abnormal findings MONIQUE EMMANUEL Facility:[facility] Start: 06-01-2022 End: 06-01-[address] WESTLEY JHA Facility:[facility] Start: 03-22-2022 End: 03-22-2022 ambulatory Monique Dudley Other [facility] Other Start: 03-22-2022 Office outpatient vi sit 15 minutes Monique Dudley [facility] Procedures Date Procedure Procedure Detail Performing Clinician Start: 02-13-2025 Radex foot complete minimum 3 views Sean LEDESMAM Work Phone: Start: 12-12-2024 Radex foot complete minimum 3 views Sean LEDESMAM Work Phone: Start: 05-16-2024 Debridement PRODUCTION MATERIAL COORDINATOR-C Cindituan weber Lien Work Phone: Start: 05-16-2024 X-ray of left foot PRODUCTION MATERIAL COORDINATOR-C Monique Lien Work Phone: Start: 02-27-2024 Plain X-ray of right shoulder PRODUCTION MATERIAL COORDINATOR-C Monique Lien Work Phone: Cholecystectomy Pato pulliam Plan of Treatment Date Care Activity Detail Author Start: 07-06-2034 Urine microalbumin profile DTaP,Tdap,Td Vaccine (7 - Td or Tdap) [facility] Start: 03-14-2025 End: 03-14-2025 Patient encounter procedure 03/14/2025 3:45 PM EDT Office Visit Orthopaedics [address] [place] [address] Sean Mata, DPM [address] [place] [address] Post op right foot, SX 12/31/24 Orthopaedics Comment on above: Post op right foot, SX 12/31/24 Start: 02-13-2025 End: 02-13-2025 Patient encounter procedure Orthopaedics Comment on above: Post op right foot, SX 12/31/24 Start: 01-23-2025 End: 01-23-2025 Patient encounter procedure Orthopaedics Comment on above: Post op right foot, SX 12/31/24 Right Foot Start: 01-09-2025 End: 01-09-2025 Patient encounter procedure 01/09/2025 10:15 AM EST Office Visit Orthopaedics [address] [place] [address] Sean Mata, DPM [address] [place] [address] Post op right foot, SX 12/31/24 Orthopaedics Comment on above: Post op right foot, SX 12/31/24 Start: 12-31-2024 End: 12-31-2024 Admission to same day surgery center 12/31/2024 1:30 PM EST - 12/31/2024 3:30 PM EST Surgery Ambulatory Surgery [address] [place] [address] [place], [place] [address] [place] [address] RECONSTRUCTION POSTERIOR TIBIAL TENDON W/EXCISION OF ACCESSORY TARSAL NAVICULAR BONE Ambulatory Surgery Comment on above: RECONSTRUCTION POSTE RIOR TIBIAL TENDON W/EXCISION OF ACCESSORY TARSAL NAVICULAR BONE Start: 12-31-2024 End: 12-31-2024 Rcnstj pst tibl tdn w/exc accessory tarsl navclr RECONSTRUCTION POSTERIOR TIBIAL TENDON W/EXCISION OF ACCESSORY TARSAL NAVICULAR BONE Accessory navicular bone of right foot 12/31/2024 1:30 PM EST [facility] Start: 12-31-2024 Subsequent hospital visit by physician 12/31/2024 1:30 PM EST Hospital Encounter Ambulatory Surgery [address] [place] [address] Sean Mata, DPM [address] [place] [address] 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] Ambulatory Surgery Comment on above: 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] Start: 12-31-2024 End: 12-31-2024 Admission to same day surgery center 12/31/2024 7:30 AM EST - 12/31/2024 9:25 AM EST Surgery Ambulatory Surgery [address] [place] [address] [place], DPM [address] [place] [address] RECONSTRUCTION POSTERIOR TIBIAL TENDON W/EXCISION OF ACCESSORY TARSAL NAVICULAR BONE Ambulatory Surgery Comment on above: RECONSTRUCTION POSTE RIOR TIBIAL TENDON W/EXCISION OF ACCESSORY TARSAL NAVICULAR BONE Start: 12-31-2024 End: 12-31-2024 Anesthesia consultation 12/31/2024 7:30 AM EST Anesthesia Event Ambulatory Surgery [address] [place] [address] [place] [address] [place] [address] Ambulatory Surgery Start: 12-31-2024 End: 12-31-2024 Rcnstj pst tibl tdn w/exc accessory tarsl navclr RECONSTRUCTION POSTERIOR TIBIAL TENDON W/EXCISION OF ACCESSORY TARSAL NAVICULAR BONE Accessory navicular bone of right foot 12/31/2024 7:30 AM EST [facility] Start: 12-31-2024 Subsequent hospital visit by physician 12/31/2024 7:30 AM EST Hospital Encounter Ambulatory Surgery [address] [place] [address] Sean Mata, DPM [address] [place] [address] 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] Ambulatory Surgery Comment on above: 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] Start: 12-28-2024 End: 12-28-2024 Anesthesia consultation 12/28/2024 10:10 AM EST PAT Pre Anesthesia [address] [place] [address] PACC right foot, SX 12/31/24 Pre Anesthesia Comment on above: PACC right foot, SX 12/31/24 Start: 11-01-2024 End: 11-01-2024 Patient encounter procedure 11/01/2024 4:20 PM EST Office Visit [facility] [address] [place] [id number] Pato Avelar, SHITAL [address] [address] [facility] Start: 10-24-2024 End: 10-24-2024 Patient encounter procedure 10/24/2024 2:40 PM EST Office Visit [facility] [address] [place] [phone] Pato Avelar DPM [address] [address] Stress fracture of right foot, initial encounter (Primary Dx); Type 2 diabetes mellitus without complication, 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 longterm insulin use (CMS/HCC) [facility] Comment on above: Stress fracture of r ight foot, initial encounter (Primary Dx); Type 2 diabetes mellitus without complication, 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 long term care administrator insulin use (CMS/HCC) Start: 10-11-2024 Hepatitis B Vaccine (3 of 3 - 3-dose series) Hepatitis B Vaccine (3 of 3 - 3-dose series) [facility] Start: 10-04-2024 End: 10-04-2024 Patient encounter procedure 10/04/2024 2:40 PM EST Office Visit [facility] [address] [place] [phone] Pato Avelar DPM [address] [address] 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); Contracture of right ankle [facility] Comment on above: 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); Contracture of right ankle Start: 09-20-2024 End: 09-20-2024 Patient encounter procedure 09/20/2024 2:40 PM EDT Office Visit [facility] [address] [address] Pato Avelar DPM [address] [address] 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); Contracture of right ankle [facility] Comment on above: 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); Contracture of right ankle Start: 09-13-2024 End: 09-13-2024 Patient encounter procedure 09/13/2024 3:20 PM EDT Office Visit [facility] [address] [address] Pato Avelar DPM [address] [address] [facility] Start: 09-12-2024 End: 09-12-2024 Patient encounter procedure 09/12/2024 3:00 PM EDT Office Visit [facility] [address] [place] [address] Pato Avelar DPM [address] [address] [facility] Start: 09-05-2024 End: 09-05-2024 Patient encounter procedure 09/05/2024 7:30 AM EDT Procedure Visit [facility] Pato Avelar, DPM [address] [address] [facility] Start: 08-30-2024 End: 08-30-2024 Patient encounter procedure 08/30/2024 2:50 PM EDT Office Visit [facility] [address] [facility] [address] [place] [address] Pato Avelar DPM [address] [address] 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); Type 2 diabetes mellitus without complication, 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 long term care administrator insulin use ([facility]) [facility] Comment on above: 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); Type 2 diabetes mellitus without complication, 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 longterm insulin use ([facility]/HCC) Start: 08-02-2024 End: 08-02-2024 Patient encounter procedure [facility] Comment on above: 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); Posterior tibial tendonitis of right leg; Type 2 diabetes mellitus without complication, 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 longterm insulin use (CMS/HCC) Start: 07-29-2024 Covid-19 Vaccine ( season) Covid-19 Vaccine ( season) [facility] Start: 07-29-2024 Influenza vaccination Influenza Vacc ine (#1) [facility] Start: 07-24-2024 End: 07-24-2024 Patient encounter procedure [facility] Comment on above: Arrived Start: 07-19-2024 End: 07-19-2024 Patient encounter procedure 07/19/2024 4:00 PM EDT Office Visit [facility] [address] [place] [address] Pato Avelar DPM [address] [address] Accessory navicular bone of left foot (Primary Dx); Type 2 diabetes mellitus without complication, 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 long term care administrator insulin use (CMS/HCC) [facility] Comment on above: Accessory navicular bone of left foot (Primary Dx); Type 2 diabetes mellitus without complication, 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 longterm insulin use ([facility]/HCC) Start: 05-16-2024 Start: 05-16-2024 Start: 2018 Screening for malign ant neoplasm of cervix [facility] Start: 2009 Screening for malign ant neoplasm of cervix [facility] Start: 2007 Pneumococcal vaccination Pneum ococcal Vaccine (1 of 2 - PCV) [facility] Start: 2007 Urine screening for protein Diabetes: Urine Protein Screening [facility] Start: 2006 Annual PCP Team [employer] coreen Disease Visit Annual PCP Team Chronic Disease Visit [facility] Start: 2006 Anxiety Screening Anxiety Screening [facility] Start: 2006 Depression Screening Depression Scre ening [facility] Start: 2006 Hepatitis B surface antibody level LDL Cholesterol [facility] Start: 2006 Hepatitis C screening Hepatitis C Sc reeabigail [facility] Start: 2006 HIV screening HIV Screening [facility] Start: 1999 Urine microalbumin profile DTaP,Tdap,Td Vaccine (6 - Tdap) [facility] Start: 1998 Diabetic foot examination Diabetic Foot Exam [facility] Start: 1998 Glaucoma screening [facility] Start: 1998 Hepatitis B screening Urine Albumin:Creatinine Ratio [facility] Start: 1993 Hemoglobin A1c measurement HbA1C [facility] Start: 1988 Hemoglobin A1c measurement Diabetes: Hemoglobin A1C [facility] MR Foot - right WO contrast MR foot right wo IV contrast Imaging Routine Stress fracture of right foot, initial encounter Ordered: 10/04/2024 [facility] Work Phone: Comment on above: Ordered: 10/04/2024 Patient Education Know your Meds [facility] Work Phone: XR Foot - right 3 Views XR foot 3+ views right Imaging Routine Accessory navicular bone of right foot 09/13/2024 3:04 PM EDT [facility] Work Phone: XR Foot - right 3 Views XR foot 3+ views right Imaging Routine Accessory navicular bone of right foot 08/02/2024 3:28 PM EDT [facility] Work Phone: End: 02-02-2026 XR Foot - right AP and Lateral and oblique XR FOOT GENERAL 3V AP/LAT/OBL RIGHT Radiology Routine S/P foot surgery, right 1 Occurrences starting 01/03/2025 until 02/02/2026 [facility] Work Phone: Comment on above: 1 Occurrences starti ng 01/03/2025 until 02/02/2026 End: 02-10-2026 XR Foot - right AP and Lateral and oblique XR FOOT GENERAL 3V AP/LAT/OBL RIGHT Radiology Routine S/P foot surgery, right 1 Occurrences starting 01/16/2025 until 02/10/2026 [facility] Work Phone: Comment on above: 1 Occurrences starti ng 01/16/2025 until 02/10/2026 Immunizations Immunization Date Immunization Notes Care Provider Tony teague 07-19-2002 hepatitis B vaccine, pediatric or pediatric/adolescent dosage Jaime Camargo DO Work Phone: [facility] 07-19-2002 measles, mumps and rubella virus vaccine Jaime Camargo DO Work Phone: [facility] 04-16-1993 diphtheria, tetanus toxoids and pertussis vaccine Jaime Camargo DO Work Phone: [facility] 04-16-1993 trivalent poliovirus vaccine, live, oral Jaime Camargo DO Work Phone: [facility] 05-18-1990 haemophilus influenz ae type b vaccine, conjugate unspecified formulation Jaime Camargo DO Work Phone: [facility] 10-13-1989 diphtheria, tetanus toxoids and pertussis vaccine Jaime Camargo DO Work Phone: [facility] 10-13-1989 measles, mumps and rubella virus vaccine Jaime Camargo DO Work Phone: [facility] 10-13-1989 trivalent poliovirus vaccine, live, oral Jaime Camargo DO Work Phone: [facility] 05-11-1989 diphtheria, tetanus toxoids and pertussis vaccine Jaime Camargo DO Work Phone: [facility] 03-17-1989 diphtheria, tetanus toxoids and pertussis vaccine Jaime Camargo DO Work Phone: [facility] 03-17-1989 trivalent poliovirus vaccine, live, oral Jaime Camargo DO Work Phone: [facility] 1988 diphtheria, tetanus toxoids and pertussis vaccine Jaime Camargo DO Work Phone: [facility] 1988 trivalent poliovirus vaccine, live, oral Jaime Camargo DO Work Phone: [facility] Payers Date Payer Category Payer Unknown [id number] 2024 Self-pay [id number] 2020 [employer] 1.2.8 [id number] 15 2020 Unknown [id number] 1988 Unknown [id number] 2.16.84 0.1.099581.3.579.2.593 1988 Unknown [id number] 2.16.84 0.1.120542.3.579.2.593 1988 Unknown [id number] 2.16.84 0.1.518945.3.579.2.593 1988 Unknown [id number] 2.16.84 0.1.959263.3.579.2.593 1988 Unknown [id number] 2.16.84 0.1.130874.3.579.2.593 1988 Unknown [id number] 2.16.84 0.1.615791.3.579.2.593 1988 Unknown [id number] 2.16.84 0.1.210293.3.579.2.593 1988 Unknown [id number] 2.16.84 0.1.392236.3.579.2.593 1988 Unknown [id number] 2.16.8 40.1.436081.3.579.2.727 1988 Unknown [id number] 2.16.84 0.1.807518.3.579.2.1258 1988 Unknown [id number] 2.16.84 0.1.054718.3.579.2.1258 1988 Unknown [id number] 2.16.84 0.1.506198.3.579.2.1258 1988 Unknown [id number] 2.16.84 0.1.848673.3.579.2.1258 1988 Unknown [id number] 2.16.84 0.1.899893.3.579.2.1258 1988 Unknown [id number] 2.16.84 0.1.285591.3.579.2.1258 1988 Unknown [id number] 2.16.8 40.1.153923.3.579.2.727 1988 Unknown [id number] 2.16.84 0.1.490152.3.579.2.9 1988 Unknown [id number] 2.16.84 0.1.676536.3.579.2.1258 1988 Unknown [id number] 2.16.84 0.1.688771.3.579.2.1258 1988 Unknown [id number] 2.16.84 0.1.858005.3.579.2.1258 1988 Unknown [id number] 2.16.84 0.1.943973.3.579.2.1258 1988 Unknown [id number] 2.16.84 0.1.841569.3.579.2.1258 1988 Unknown [id number] 2.16.84 0.1.188919.3.579.2.1259 1988 Unknown [id number] 2.16.84 0.1.347954.3.579.2.1259 1988 Unknown [id number] 2.16.84 0.1.770833.3.579.2.1259 1988 Unknown [id number] 2.16.84 0.1.441930.3.579.2.1259 1959 [facility] [id number] 2.16.840.1.483563.19 Unknown [id number] 2.16.8 40.1.176570.3.579.2.531 Unknown [id number] 2.16.8 40.1.126592.3.579.2.531 Social History Date Type Detail Facility Unknown if ever smoked [facility] Other Start: 08-02-2024 End: 12-12-2024 [facility] Start: 10-25-2018 End: 12-28-2024 Tobacco smoking status MDIS Never smoked tobacco (finding) Start: 1990 Sex Assigned At Female Tobacco smoking status No Smoking Status Entered [facility] Start: 03-29-2024 End: 12-28-2024 Tobacco use and exposure Smokeless tobacco non-user [facility] Start: 08-02-2024 End: 12-31-2024 Alcoholic beverage intake Lifetime non-drinker (finding) [facility] Start: 08-02-2024 End: 12-12-2024 History of Social function [facility] Start: 1988 Sex assigned at Not on file [facility] Tobacco smoking status MDIS Tobacco smoking consumption unknown [facility] Adult Depression Screening Assessment 2 [facility] Start: 02-05-2025 Sex Female (finding) [facility] NEGATED: Highlighted rowStart: NINF History of tobacco use Passive smoker [facility] Medical Equipment Procedure Code Equipment Code Equipment Origin al Text Equipment Identifier Dates Wound debridement Tendon/ligamen t bone anchor, non-bioabsorbable [id number] FDA Start: 05-16-2024 [place] [employer] 1 .5 [place] 2 [employer] 26.2mm Suture - [id number] Start: 12-31-2024 Blood Sugar Diagnostic (Onetouch Ultra Test) strip Start: 02-05-2025 Goals Date Patient Goal Desired Activity /State Functional Status Date Assessment Result Facility 04-25-[address] [facility] Clinical Notes 03-22-2022 to 02-20-2025 Telephone Encounter - Chris Bhatt OCCA - 02/20/2025 4:21 PM EDTTelephone Encounter - Chris Bhatt OCCA - 02/20/2025 4:21 PM EDTLBeverly marc Cast Tech - 02/13/2025 10:14 AM EDT Note Date & Type Note Facility 02-20-2025 Telephone encounter Note Called and informed staff she may being partial weight bearing. [facility] 02-20-2025 Miscellaneous Notes Called and informed staff she may being partial weight bearing. Bonilla from [facility] is calling Sean Mata DPM today to request weightbearing guide lines for patient PT CB [phone] ext [phone] FAX [phone] Patient has been identified by name and birthdate. Duration of symptoms: N/A Person calling: caregiver: Call patient at: [phone] (home) [phone] (cell) Was an appointment scheduled: No Closing statement: Results or non-symptom based questions: Thank you for calling [facility], your call will be returned within the next business day. Marva Almeida documented in this encounter [facility] 02-20-2025 Telephone encounter Note Bonilla from [facility] is calling Sean Mata DPM today to request weightbearing guide lines for patient PT CB [phone] ext [phone] FAX [phone] Patient has been identified by name and birthdate. Duration of symptoms: N/A Person calling: caregiver: Call patient at: [phone] (home) [phone] (cell) Was an appointment scheduled: No Closing statement: Results or non-symptom based questions: Thank you for calling [facility], your call will be returned within the next business day. Marva Almeida [facility] 02-13-2025 Note HNO ID: [id number] Author: BEVERLY DOBSON Cast Tech Service: ? Author Type: Public Stenographer Type: Progress Notes Filed: 02/13/2025 10:15 Note Text: Patient in today for scheduled appointment. Cast removed. Right leg cleansed with Cavilon. Examined by Dr. Mata. Fitted with a medium Short Pneumatic Walker for the right leg. Instructions on application, adjustments and care given. Will f/u as scheduled/prn. HAYES Johnson [facility] 02-13-2025 History of Present illness Narrative Patient in today for scheduled appointment. Cast removed. Right leg cleansed with Cavilon. Examined by Dr. Mata. Fitted with a medium Short Pneumatic Walker for the right leg. Instructions on application, adjustments and care given. Will f/u as scheduled/prn. HAYES Johnson documented in this encounter [facility] 02-13-2025 Note HNO ID: [id number] Author: SEAN MATA DPM Service: ? Author Type: Physician Type: Progress Notes Filed: 02/13/2025 10:05 Note Text: PRIMARY SERVICE: [facility] Podiatry SUBJECTIVE: Patient is seen today for her third scheduled postop visit with her present 6 plus weeks status post a revision of modified Kidner procedure of her right foot without complaints. Medical: PAST MEDICAL HISTORY PAST MEDICAL HISTORY Diagnosis Date - Diabetes mellitus (HCC) - GERD (gastroesophageal reflux disease) - Obesity - AQUILES (obstructive sleep apnea) - PONV (postoperative nausea and vomiting) ALLERGIES: ALLERGIES ALLERGIES Allergen Reactions - Sulfa (Sulfonamide * Hives, Rash MEDICATIONS: CURRENT MEDICATIONS Current Outpatient Medications Medication Sig - keTORolac (TORADOL) 10 mg tablet Take 1 tablet by mouth every 6 hours as needed. with food. - aspirin 325 mg tablet Take 1 tablet by mouth once daily. - promethazine (PHENERGAN) 12.5 mg tablet Take 1 tablet by mouth every 8 hours as needed for up to 10 days. - DEXCOM G7 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 - DEXCOM G7 [...] BY MOUTH EVERY DAY for 90 - oxyCODONE-acetaminophen (PERCOCET) 5-325 mg tablet Take 1 tablet by mouth every 6 hours as needed. - traZODone (DESYREL) 100 mg tablet TAKE 1 TABLET BY MOUTH EVERYDAY AT BEDTIME NEEDED No current facility-administered medications for this visit. Surgical: PAST SURGICAL HISTORY PAST SURGICAL HISTORY Procedure Laterality Date - PAST SURGICAL HISTORY OF Bilateral foot x2 - PAST SURGICAL HISTORY OF Right shoulder - REMOVAL GALLBLADDER PHYSICAL EXAM: The patient is [...] Satisfactory postop progress right foot status post 6 weeks appropriate to begin partial weightbearing Third postop visit right foot Discussed results of clinical examination with the patient and in detail upon removal of the BK fiberglass cast and dressings. We will begin progressive partial weightbearing next visit in an Aircast CAM Walker boot and refer to physical therapy. Follow-up in 1 month with probable discharge. No further radiographs needed SIGNATURE: Sean Mata DPM Medical intake sheet from February 13, 2025 , was updated by patient, reviewed, and was made part of the patient's chart. Sean Mata DPM [facility] 02-13-2025 History of Present illness Narrative PRIMARY SERVICE: [facility] Podiatry SUBJECTIVE: Patient is seen today for her third scheduled postop visit with her present 6 plus weeks status post a revision of modified [...] for up to 10 days. 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 DEXCOM G7 SENSOR [...] Satisfactory postop progress right foot status post 6 weeks appropriate to begin partial weightbearing Third postop visit right foot Discussed results of clinical examination with the patient and in detail upon removal of the BK fiberglass cast and dressings. We will begin progressive partial weightbearing next visit in an Aircast CAM Walker boot and refer to physical therapy. Follow-up in 1 month with probable discharge. No further radiographs needed SIGNATURE: Sean Mata DPM Medical intake sheet from February 13, 2025 , was updated by patient, reviewed, and was made part of the patient's chart. Sean Mata DPM documented in this encounter [facility] 02-13-2025 Note HNO ID: [id number] Author: MAURA SHELL RT(R) Service: ? Author Type: Technologist Type: Progress Notes Filed: 02/13/2025 09:24 Note Text: Radiology Service Progress Note PATIENT NAME: Noel Paul DATE OF SERVICE: February 13, 2025 TIME: 9:23 AM PATIENT IDENTITY VERIFICATION COMPLETED USING TWO (2) IDENTIFIERS: Name and Date of confirmed by patient verbally. FALL SCREENING: Has the patient had 2 falls in the last year or 1 fall with injury or currently using an Ambulatory Assistive Device (Walker, Cane, Wheelchair, Crutches, etc.)? Yes, Patient High Risk for Falls What interventions were put in place to prevent falls during this visit? Instructed Patient to Remain Seated (Not on Exam Table) Until Exam and Increased Observations by Caregivers PATIENT GENDER DATA: Assigned female at . status: : No status: NO. PATIENT RELEVANT IMPLANT DATA REVIEWED: Not Applicable PATIENT PRESENTS WITH AN IMPLANTABLE OR ATTACHED CALL OUT CLERK: No RADIOLOGY DEPARTMENT: General X-ray: Exam(s) Completed: Lower Extremity X-Ray(s): Foot, Right PERIPHERAL IV DATA: Not applicable SIGNED BY: RT Rickie(R) February 13, 2025 9:23 AM [facility] 02-13-2025 History of Present illness Narrative Radiology Service Progress Note PATIENT NAME: Noel Paul DATE OF SERVICE: February 13, 2025 TIME: 9:23 AM PATIENT IDENTITY VERIFICATION COMPLETED USING TWO (2) IDENTIFIERS: Name and Date of confirmed by patient verbally. FALL SCREENING: Has the patient had 2 falls in the last year or 1 fall with injury or currently using an Ambulatory Assistive Device (Walker, Cane, Wheelchair, Crutches, etc.)? Yes, Patient High Risk for Falls What interventions were put in place to prevent falls during this visit? Instructed Patient to Remain Seated (Not on Exam Table) Until Exam and Increased Observations by Caregivers PATIENT GENDER DATA: Assigned female at . status: : No status: NO. PATIENT RELEVANT IMPLANT DATA REVIEWED: Not Applicable PATIENT PRESENTS WITH AN IMPLANTABLE OR ATTACHED CALL OUT CLERK: No RADIOLOGY DEPARTMENT: General X-ray: Exam(s) Completed: Lower Extremity X-Ray(s): Foot, Right PERIPHERAL IV DATA: Not applicable SIGNED BY: RT Rickie(R) February 13, 2025 9:23 AM documented in this encounter [facility] 01-23-2025 Note Addended by: NATALIA BARRIOS on: 01/23/2025 12:18 PM Modules accepted: Orders [facility] 01-23-2025 Miscellaneous Notes Addended by: NATALIA BARRIOS on: 01/23/2025 12:18 PM Modules accepted: Orders documented in this encounter [facility] 01-23-2025 Note HNO ID: [id number] Author: BEVERLY DOBSON Cast Tech Service: ? Author Type: Public Stenographer Type: Progress Notes Filed: 01/23/2025 11:52 Note Text: Patient in today for scheduled appointment. Cast removed. Right leg cleansed with sea-clens. Examined by Dr. Mata. Applied A Short Leg Nonweightbearing Cast to the right leg. Instructions on cast care given. Will f/u as scheduled/prn. HAYES Johnson [facility] 01-23-2025 History of Present illness Narrative Patient in today for scheduled appointment. Cast removed. Right leg cleansed with sea-clens. Examined by Dr. Mata. Applied A Short Leg Nonweightbearing Cast to the right leg. Instructions on cast care given. Will f/u as scheduled/prn. HAYES Johnson documented in this encounter [facility] 01-23-2025 Note HNO ID: [id number] Author: SEAN MATA DPM Service: ? Author Type: Physician Type: Progress Notes Filed: 01/23/2025 11:47 Note Text: PRIMARY SERVICE: [facility] Podiatry SUBJECTIVE: Patient is seen today for [...] for up to 10 days. 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 DEXCOM G7 SENSOR [...] to physical therapy. SIGNATURE: Sean Mata DPM [facility] 01-23-2025 History of Present illness Narrative PRIMARY SERVICE: [facility] Podiatry SUBJECTIVE: Patient is seen today for [...] for up to 10 days. 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 DEXCOM G7 SENSOR [...] Sean Mata DPM documented in this encounter [facility] 01-09-2025 Note HNO ID: [id number] Author: SHAYLEE CONCEPCION MA Service: ? Author Type: Tool Rental Technician Type: Progress Notes Filed: 01/09/2025 11:22 Note [...] follow up as scheduled or as needed. [facility] 01-09-2025 History of Present illness Narrative This [...] or as needed. documented in this encounter [facility] 01-09-2025 Note HNO ID: [id number] Author: SEAN MATA DPM Service: ? Author Type: Physician Type: Progress Notes Filed: 01/09/2025 10:55 Note Text: PRIMARY SERVICE: [facility] Podiatry SUBJECTIVE: Patient is seen today for [...] for up to 10 days. 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 DEXCOM G7 SENSOR [...] SERVICE: 01/09/2025 TIME of SERVICE: 10:52 AM [facility] 01-09-2025 History of Present illness Narrative Images from the original note were not included. PRIMARY SERVICE: [facility] Podiatry SUBJECTIVE: Patient is seen today for [...] for up to 10 days. 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 DEXCOM G7 SENSOR [...] SERVICE: 10:52 AM documented in this encounter [facility] 01-02-2025 Telephone encounter Note Called patient at [phone] to return call regarding pain management. I spoke with the patient. Advised I sent a prescription over for her electronically for Toradol 10 mg tablets take 2 right away the 1 every 6 hours with food until gone in addition to the Percocet and the Phenergan. Recommend 2 Percocet every 4-6 hours due to her BMI. Sean Mata DPM [facility] 01-02-2025 Miscellaneous Notes Called patient at [phone] to return call regarding pain management. I spoke with the patient. Advised I sent a prescription over for her electronically for Toradol 10 mg tablets take 2 right away the 1 every 6 hours with food until gone in addition to the Percocet and the Phenergan. Recommend 2 Percocet every 4-6 hours due to her BMI. Sean Mata DPM documented in this encounter [facility] 12-31-2024 Miscellaneous Notes Called patient at her Lonnie's cell number at [phone] to check on postop progress. Received voicemail. [...] calling: self Call patient at: at home [phone] (home) [phone] (cell) Was an appointment scheduled: No Closing statement: Results or non-symptom based questions: Thank you for calling [facility], your call will be returned within the next business day. Marva Kang Pss documented in this encounter [facility] 12-31-2024 Telephone encounter Note Called patient at her Lonnie's cell number at [phone] to check on postop progress. Received voicemail. Left message that I called. Called patient back at 8:41 PM to same number. Spoke with who said she was doing well without any significant pain or problems at this time. Advised to call if any questions or problems between now and her first scheduled postop visit on January 09, 2025. Sean Mata DPM [facility] Work Phone: 12-31-2024 Telephone encounter Note Message has been sent directly to Dr Mata's phone. [facility] 12-31-2024 Telephone encounter Note Noel is calling [...] calling: self Call patient at: at home [phone] (home) [phone] (cell) Was an appointment scheduled: No Closing statement: Results or non-symptom based questions: Thank you for calling [facility], your call will be returned within the next business day. Marva Kang Pss [facility] 12-31-2024 Note HNO ID: [id number] Author: ESTELLA GIBBONS AA Service: Anesthesiology Author Type: Composition Professor Type: Anesthesia Procedure Notes Filed: 12/31/2024 09:57 [...] December 31, 2024 TIME: 9:57 AM CSN: [id number] [facility] 12-31-2024 Note HNO ID: [id number] Author: ESTELLA GIBBONS AA Service: Anesthesiology Author Type: Composition Professor Type: Anesthesia Procedure Notes Filed: 12/31/2024 08:20 [...] December 31, 2024 TIME: 8:18 AM CSN: [id number] [facility] 12-28-2024 History and physical note Images from the original note were not included. [facility] HISTORY AND PHYSICAL EXAMINATION SERVICE DATE: 12/28/2024 SERVICE TIME: 10:08 AM PRIMARY CARE PHYSICIAN: Monique Emmanuel CNP, CUSTODIAL OPERATIONS MANAGER REASON FOR VISIT: Noel Paul is a [...] STOP-Bang Score: STOP-Bang Score: 0 (Awaiting CPAP) [id number] Score: Age: <65 Sex: female [id number] Score: ARISCAT Score: Age: <=50 Preoperative SpO2: [...] chart review and guidance on proceeding at [facility]. Per Dr Goetz, patient may proceed as scheduled at [facility] CONSULTS: Anesthesia Consult chart review The Following [...] AT BEDTIME NEEDED Taking Yes DEXCOM G7 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 DEXCOM G7 SENSOR [...] fevers. Neuro: No history of TIA's, stroke, SHEET FINISHER tumor, impaired sensorium, hemiplegia, paraplegia or quadraplegia. No neurological symptoms or problems. Respiratory: No history of current cough or dyspnea, or pneumonia in the past 6 weeks. No history of respiratory/pulmonary symptoms or problems. Cardiovascular: No history of HTN requiring medication, no history of angina, CHF, MO, cardiac surgery or stents. Denies rest pain, [...] Noel Paul DATE: 12/28/2024 TIME: 10:21 AM [facility] 12-28-2024 History and physical note Images [...] home 120's HgbA1c 6.6% BMI 60.0-69.9, adult ([facility]) Assessment: diet and exercise encouraged BMI [...] STOP-Bang Score: STOP-Bang Score: 0 (Awaiting CPAP) [id number] Score: Age: <65 Sex: female [id number] Score: ARISCAT Score: Age: <=50 Preoperative SpO2: [...] chart review and guidance on proceeding at [facility]. Per Dr Goetz, patient may proceed as scheduled at [facility] CONSULTS: Anesthesia Consult chart review The Following [...] AT BEDTIME NEEDED Taking Yes DEXCOM G7 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 DEXCOM G7 SENSOR [...] fevers. Neuro: No history of TIA's, stroke, SHEET FINISHER tumor, impaired sensorium, hemiplegia, paraplegia or quadraplegia. No neurological symptoms or problems. Respiratory: No history of current cough or dyspnea, or pneumonia in the past 6 weeks. No history of respiratory/pulmonary symptoms or problems. Cardiovascular: No history of HTN requiring medication, no history of angina, CHF, MO, cardiac surgery or stents. Denies rest pain, [...] TIME: 10:21 AM documented in this encounter [facility] 12-26-2024 Instructions Ary Rocha APRN.IRENE - 12/26/2024 7:49 AM EST Images from the original note were not included. [facility] PATIENT PREOPERATIVE INSTRUCTIONS Sean Mata,* has scheduled you for your procedure at this surgery center: [facility]: [phone] --[phone] [address]. Please read below carefully for your personalized [...] office. If you are currently using a [id number] injectable or oral medication for diabetes or [...] Procedures: - YOU MUST HAVE A RESPONSIBLE OPERATIONS SUPPORT ANALYST TAKE YOU HOME. A ASPHALT TAMPER OR CHIEF FINANCIAL OFFICER CANNOT BE MADE A RESPONSIBLE OPERATIONS SUPPORT ANALYST. - We recommend that a responsible person [...] Advance Directive, please fax a copy to [phone] or email to for it to be [...] chart that day. 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 documented in this encounter [facility] 12-12-2024 Note HNO ID: [id number] Author: SEAN MATA DPM Service: ? Author Type: Physician Type: Progress Notes Filed: 12/12/2024 10:46 Note Text: [facility] Department of Orthopedics [facility] Orthopedic Surgery Name: Noel Paul Date [...] Current Outpatient Medications Medication Sig DEXCOM G7 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 DEXCOM G7 SENSOR [...] We will complete scheduling. Sean Mata DPM [facility] 12-12-2024 History of Present illness Narrative [facility] Department of Orthopedics [facility] Orthopedic Surgery Name: Noel Paul Date [...] Current Outpatient Medications Medication Sig DEXCOM G7 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 DEXCOM G7 SENSOR [...] Sean Mata DPM documented in this encounter [facility] 12-12-2024 Note HNO ID: [id number] Author: JAMAL REYNOSO RT(R) Service: ? Author [...] PATIENT PRESENTS WITH AN IMPLANTABLE OR ATTACHED CALL OUT CLERK: No RADIOLOGY DEPARTMENT: General X-ray: Exam(s) Completed: Lower Extremity X-Ray(s): Foot, Right PERIPHERAL IV DATA: Not applicable SIGNED BY: RT Manju(R) December 12, 2024 9:29 AM [facility] 12-12-2024 History of Present illness Narrative Radiology [...] PATIENT PRESENTS WITH AN IMPLANTABLE OR ATTACHED CALL OUT CLERK: No RADIOLOGY DEPARTMENT: General X-ray: Exam(s) Completed: Lower Extremity X-Ray(s): Foot, Right PERIPHERAL IV DATA: Not applicable SIGNED BY: RT Manju(R) December 12, 2024 9:29 AM documented in this encounter [facility] 11-26-2024 Note Orthopedic Surgery Subjective Pain [...] today as a 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 Kat Her MD Orthopedic Surgery, [employer] [facility] 11/26/2024 [facility] 10-24-2024 History of Present illness Narrative Patient: Noel Paul : 1990 PCP: Erich Gacria MD SUBJECTIVE This is a 34 y.o. female that presents today 49 days s/p right modified Kidner right foot Pt denies n/f/v/c and has positive pain to post op site. Patient was seen in local hospital ER and dispensed a high Cam walker type boot. She states pain up to a 7/10 at times and presents today for follow-up of MRI results at [facility]. Allergies: Allergies Allergen Reactions Sulfa Antibiotics Rash and Hives Past Medical History: Past Medical History: Diagnosis Date Diabetes ([facility]) Ear problems GERD (gastroesophageal reflux disease) [...] 2 diabetes mellitus without complication, 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 longterm insulin use ([facility]) 3. Accessory navicular bone of right [...] need more invasive surgery. Will refer to [facility] Dr. Phoenix for referral and consultation at tertiary care center secondary to more advanced type procedure may be necessary. Will refer for consultation and possible further intervention Pato Avelar DPM documented in this encounter [facility] 10-04-2024 History of Present illness Narrative [...] History: Past Medical History: Diagnosis Date Diabetes ([facility]) Ear problems GERD (gastroesophageal reflux disease) [...] Pato Avelar DPM documented in this encounter [facility] 09-20-2024 History of Present illness Narrative [...] History: Past Medical History: Diagnosis Date Diabetes ([facility]) Ear problems GERD (gastroesophageal reflux disease) [...] Pato Avelar DPM documented in this encounter [facility] 09-07-2024 Telephone encounter Note Has been called for possible increase in pain medication and will switch from hydrocodone to oxycodone and sent to [facility] and [place] [facility] 09-07-2024 Miscellaneous Notes Has been called for possible increase in pain medication and will switch from hydrocodone to oxycodone and sent to [facility] and [place] documented in this encounter [facility] 08-30-2024 History of Present illness Narrative [...] History: Past Medical History: Diagnosis Date Diabetes ([facility]) Ear problems GERD (gastroesophageal reflux disease) [...] cool tibia to toes b/l NEURO: 5.07 [place] Deyanira monofilament test positive to digits and [...] without complication, 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 long term care administrator insulin use ([facility]) 3. Heel spur, left 4. Plantar [...] risks, alternatives, benefits, post op complications and longterm expectations were discussed including but not limited to: infection,bone infection,wound dehiscence hardware failure and irritation,wound dehiscence,delay union/mal union/non union of bone. RSDS,neuroma,duty limitations,DVT/PE, MO,nerve damage, scar, loss of sensation, swelling. Pt [...] Pato Avelar DPM documented [facility] [facility] History of Present illness Narrative [...] History: Past Medical History: Diagnosis Date Diabetes ([facility]) Ear problems GERD (gastroesophageal reflux disease) [...] without complication, 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 long term care administrator insulin use ([facility]) PLAN Patient to continue with oral [...] Patient may continue with conservative treatments including lnza-jcs-sebacil anti-inflammatories and other treatments suggested today. Patient may want to be scheduled for surgical intervention in the near future. Patient had a right modified Kidner procedure to the right foot with removal of accessory navicular with postoperative pain medicine of [place] and will see family Lien for preop clearance. This condition is unrelated to prior condition Pato Avelar DPM documented in this encounter [facility] 07-31-2024 Telephone encounter Note Pt called back, would like scanned at next appt [facility] 07-31-2024 Miscellaneous Notes Pt called back, would like scanned at next appt Left vm to go over benefits Per call to Elda CHILDRESS @ [phone] with Denise Marroquin - I verified the policy is current and active with an effective date of 11/28/2020. L3020 is covered at 100% as both the ded and oop have been met. There are no frequency limits, no exclusions, and no prior authorizations needed. Ref#: [id number]. Please precertify for custom orthotics for the diagnosis of Posterior tibial tendinitis bilaterally documented in this encounter [facility] 07-31-2024 Telephone encounter Note Left vm to go over benefits [facility] 07-27-2024 Telephone encounter Note Per call to Elda CHILDRESS @ [phone] with Denise Marroquin - I verified the policy is current and active with an effective date of 11/28/2020. L3020 is covered at 100% as both the ded and oop have been met. There are no frequency limits, no exclusions, and no prior authorizations needed. Ref#: [id number]. [facility] 07-24-2024 History of Present illness Narrative [...] the next 7-10 days. Patient will use xeit-bbq-xszsvlg ibuprofen 3 times a day with food to help decrease inflammation. The patient may also benefit from a mouth guard. We will consider referral to Dr. Adali SALAZAR if there is no improvement documented in this encounter [facility] 07-19-2024 Telephone encounter Note Please precertify for custom orthotics for the diagnosis of Posterior tibial tendinitis bilaterally [facility] 07-19-2024 History of Present illness Narrative Patient: Noel Paul : 1990 PCP: [facility] Provider MD Milad SUBJECTIVE This is [...] History: Past Medical History: Diagnosis Date Diabetes ([facility]) Medications: Current Outpatient Medications: cholecalciferol (Vitamin [...] 2 diabetes mellitus without complication, 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 longterm insulin use ([facility]) 3. Accessory navicular bone of right [...] Pato Avelar DPM documented in this encounter [facility] 03-22-2022 Evaluation note Encounter Date Diagnosis [...] no improvement in 5 to 7 days. Tamion Other Evaluation + Plan note Future Appointments Appointment Date:05/09/2024 07:30:00 AM Scheduled Provider: Location[facility] Work Phone: Evaluation note* Diagnosis 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 Type 2 diabetes mellitus without complication, 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 long term care administrator insulin use ([facility]) Heel spur, left Plantar fasciitis Plantar fascial fibromatosis Contracture of left ankle Contracture of right ankle [facility] Diagnosis 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 [facility]* Diagnosis 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 Contracture of right ankle Type 2 diabetes mellitus without complication, 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 longterm insulin use ([facility]) [facility] Diagnosis 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 Contracture of right ankle [facility] Diagnosis 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 Contracture of right ankle Stress fracture of right foot, initial encounter documented [facility]* Diagnosis Stress fracture of right foot, initial encounter- Primary Type 2 diabetes mellitus without complication, 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 long term care administrator insulin use (CMS/HCC) Accessory navicular bone of right foot [facility]* Diagnosis Posterior tibial tendonitis of right leg- Primary Accessory navicular bone of left foot Type 2 diabetes mellitus without complication, 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 long term care administrator insulin use ([facility]) Accessory navicular bone of right foot [facility]* Diagnosis Arthralgia of left temporomandibular joint- Primary Left ear pain Unspecified otalgia Chronic rhinitis Fullness in ear, left [facility]* Diagnosis 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 Posterior tibial tendonitis of right leg Type 2 diabetes mellitus without complication, 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 longterm insulin use ([facility]) [facility] Diagnosis Accessory navicular bone of left foot- Primary [facility] Pain in right foot- Primary Pain in limb Accessory navicular bone of right foot [facility] Pain Generalized pain [facility] Diagnosis 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 [facility] Diagnosis Pre-op evaluation- Primary Preoperative examination, unspecified Gastroesophageal reflux disease, 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 esophagitis present Diabetes mellitus without complication ([facility]) Type II or unspecified type diabetes mellitus [...] 10:05 AM ESTAssociated Problem(s): BMI 60.0-69.9, adult ([facility]) Assessment: diet and exercise encouraged BMI 62 * Assessment & Plan Note - Ary Rohca APRN.CNP - 12/28/2024 10:05 AM ESTAssociated Problem(s): Diabetes mellitus without complication (HCC) Assessment: managed with oral med, stable Follows up with PCP BG at home 120's HgbA1c 6.6% * Assessment & Plan Note - Ary Rocha APRN.CNP - 12/28/2024 10:04 AM ESTAssociated Problem(s): Acid reflux Assessment: managed with med, stable Follows up with PCP documented in this encounter [facility] note* Diagnosis Pain- Primary Generalized pain Pain Generalized pain Pre-op evaluation- Primary Preoperative examination, unspecified Gastroesophageal reflux disease, 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 esophagitis present Diabetes mellitus without complication (HCC) Type II or unspecified type diabetes mellitus without mention of complication, not stated as uncontrolled BMI 60.0-69.9, adult ([facility]) Body Mass Index 60.0-69.9, adult AQUILES (obstructive sleep apnea) Obstructive sleep apnea (adult) (pediatric) documented in this encounter [facility] note* Diagnosis Pre-op evaluation- Primary Preoperative examination, unspecified Gastroesophageal reflux disease, 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 esophagitis present Diabetes mellitus without complication (HCC) Type II or unspecified type diabetes mellitus without mention of complication, not stated as uncontrolled BMI 60.0-69.9, adult ([facility]) Body Mass Index 60.0-69.9, adult AQUILES (obstructive sleep apnea) Obstructive sleep apnea (adult) (pediatric) S/P foot surgery, right- Primary Accessory navicular bone of right foot documented in this encounter [facility] note* Diagnosis Pre-op evaluation- Primary Preoperative examination, unspecified Gastroesophageal reflux disease, 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 esophagitis present Diabetes mellitus without complication (HCC) Type II or unspecified type diabetes mellitus without mention of complication, not stated as uncontrolled BMI 60.0-69.9, adult ([facility]) Body Mass Index 60.0-69.9, adult AQUILES (obstructive sleep apnea) Obstructive sleep apnea (adult) (pediatric) S/P foot surgery, right- Primary documented in this encounter [facility] note* Diagnosis Pre-op evaluation- Primary Preoperative examination, unspecified Gastroesophageal reflux disease, 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 esophagitis present Diabetes mellitus without complication (HCC) Type II or unspecified type diabetes mellitus without mention of complication, not stated as uncontrolled BMI 60.0-69.9, adult ([facility]) Body Mass Index 60.0-69.9, adult AQUILES (obstructive sleep apnea) Obstructive sleep apnea (adult) (pediatric) S/P foot surgery, right- Primary Accessory navicular bone of right foot documented in this encounter [facility] note* Diagnosis Pre-op evaluation- Primary Preoperative examination, unspecified Gastroesophageal reflux disease, 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 esophagitis present Diabetes mellitus without complication (HCC) Type II or unspecified type diabetes mellitus without mention of complication, not stated as uncontrolled BMI 60.0-69.9, adult ([facility]) Body Mass Index 60.0-69.9, adult AQUILES (obstructive sleep apnea) Obstructive sleep apnea (adult) (pediatric) S/P foot surgery, right- Primary documented in this encounter [facility] note* Diagnosis Pre-op evaluation- Primary Preoperative examination, unspecified Gastroesophageal reflux disease, 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 esophagitis present Diabetes mellitus without complication (HCC) Type II or unspecified type diabetes mellitus without mention of complication, not stated as uncontrolled BMI 60.0-69.9, adult ([facility]) Body Mass Index 60.0-69.9, adult AQUILES (obstructive sleep apnea) Obstructive sleep apnea (adult) (pediatric) S/P foot surgery, right- Primary S/P foot surgery, right documented in this encounter [facility] note* Diagnosis Pre-op evaluation- Primary Preoperative examination, unspecified Gastroesophageal reflux disease, 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 esophagitis present Diabetes mellitus without complication (HCC) Type II or unspecified type diabetes mellitus without mention of complication, not stated as uncontrolled BMI 60.0-69.9, adult ([facility]) Body Mass Index 60.0-69.9, adult AQUILES (obstructive sleep apnea) Obstructive sleep apnea (adult) (pediatric) S/P foot surgery, right- Primary documented in this encounter [facility] note* Diagnosis Pre-op evaluation- Primary Preoperative examination, unspecified Gastroesophageal reflux disease, 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 esophagitis present Diabetes mellitus without complication ([facility]) Type II or unspecified type diabetes mellitus without mention of complication, not stated as uncontrolled BMI 60.0-69.9, adult (HCC) Body Mass Index 60.0-69.9, adult AQUILES (obstructive sleep apnea) Obstructive sleep apnea (adult) (pediatric) S/P foot surgery, right documented in this encounter [facility] general Narrative - Reported* Type Description Date Medical History Acquired hypothyroidism Medical History vitamin D deficiency Surgical History cholecystectomy Hospitalization History No Hospitalization histo ry information [facility] [employer] Other History of Present illness Narrative* Pato [...] History: Past Medical History: Diagnosis Date Diabetes ([facility]) Ear problems GERD (gastroesophageal reflux disease) [...] 2 diabetes mellitus without complication, 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 longterm insulin use ([facility]) PLAN Patient to keep dry sterile [...] patient Pato Avelar DPM documented in this [facility] course Narrative No data available for this section [facility] Discharge instructions No data available for this section [facility] Discharge instructions Additional Instructions DISCHARGE INSTRUCTIONS FOR [...] operative site FOLLOW UP Phone numbers: Office [phone] [ ][facility] Work Phone: Progress note No data available for this section [facility] for referral (narrative)* Diagnostic Procedure Only (Routine) - Closed Specialty Diagnoses / Procedures Referred By Maryac bee Referred To Contact XR IMAGING Diagnoses Pain Procedures XR FOOT GENERAL 3V AP/LAT/OBL RIGHT RADEX FOOT COMPLETE MINIMUM 3 VIEWS Sean Mata DPM [id number] [place] [address] [place] [address] Referral ID Status Reason Start Date Expiration Date V isits Requested Visits Authorized [id number] Closed Auto-Generate d Referral 12/05/2024 01/04/2026 1 1 [facility] for referral (narrative)* Diagnostic Procedure Only (Routine) - Closed Specialty Diagnoses / Procedures Referred By Contac t Referred To Contact XR IMAGING Diagnoses Pain Procedures XR FOOT GENERAL 3V AP/LAT/OBL RIGHT RADEX FOOT COMPLETE MINIMUM 3 VIEWS Sean Mata DPM [phone] [place] [address] [place] [address] Referral ID Status Reason Start Date Expiration Date V isits Requested Visits Authorized [id number] Closed Auto-Generate d Referral 12/05/2024 01/04/2026 1 1 [facility] for visit Narrative* Diagnostic Procedure Only (Routine) - Closed Specialty Diagnoses / Procedures Referred By Contac t Referred To Contact XR IMAGING Diagnoses Pain Procedures XR FOOT GENERAL 3V AP/LAT/OBL RIGHT RADEX FOOT COMPLETE MINIMUM 3 VIEWS Sean Mata DPM [address] [place] [address] [place] [address] Referral ID Status Reason Start Date Expiration Date V isits Requested Visits Authorized [id number] Closed Auto-Generate d Referral 12/05/2024 01/04/2026 1 1 [facility] for visit Narrative* Diagnostic Procedure Only (Routine) - Closed Specialty Diagnoses / Procedures Referred By Contac t Referred To Contact XR IMAGING Diagnoses S/P foot surgery, right Procedures XR FOOT GENERAL 3V AP/LAT/OBL RIGHT RADEX FOOT COMPLETE MINIMUM 3 VIEWS Sean Mata DPM [phone] [place] [address] Phone: tel: fax: [place] [address] Referral ID Status Reason Start Date Expiration Date V isits Requested Visits Authorized [id number] Closed Auto-Generate d Referral 02/06/2025 03/07/2026 1 1 [facility] Summary Purpose Family History No Family History Records Found Relationship Condition Age at Onset Recorded Date/T luis alfredo Not Specified Unknown Heart disease Unknown Relationship Condition Age at Onset Recorded Date/T luis alfredo mother Unknown Heart disease Unknown Advance Directives No [...] type 2 diabetes Chief Complaint Admit Date eip srinivasan February 05, 2025 4:4 4pm Reason for Referral Specialty Diagnoses / Procedures Referred By Contac t Referred To Contact Diagnoses Accessory navicular bone of right foot Pato Avelar, DPMadi [address] [address] Referral ID Status Reason Start Date Expiration Date V isits Requested Visits Authorized [id number] Pending Review 09/07/2024 03/06/2025 1 1 Additional [...] Comments Surgical Followup Reason Comments Pre-Op Exam Reason Comments Radio Gen RMP Reason Comments Post Op Reason Comments Patient Update INFORMATION SOURCE (unrecogn ized section and content) DATE CREATED AUTHOR 05/06/2023 [facility] pital DATE CREATED AUTHOR AUTHOR'S ORGANIZ ATION 04/26/2024 [employer] [facility] DATE CREATED AUTHOR AUTHOR'S ORGANIZ ATION 05/25/2024 [facility] DATE CREATED AUTHOR AUTHOR'S ORGANIZ ATION 07/01/2024 [facility] EPIC DATE CREATED AUTHOR AUTHOR'S ORGANIZ ATION 09/12/2024 Beckett Sai [facility] DATE CREATED AUTHOR AUTHOR'S ORGANIZ ATION 09/13/2024 Beckett Sai [facility] DATE CREATED AUTHOR AUTHOR'S ORGANIZ ATION 09/15/2024 Beckett Nobles [facility] DATE CREATED AUTHOR AUTHOR'S ORGANIZ ATION 10/27/2024 [facility] EPIC DATE CREATED AUTHOR AUTHOR'S ORGANIZ ATION 12/09/2024 [facility] DATE CREATED AUTHOR AUTHOR'S ORGANIZ ATION 02/22/2025 [facility] Care Teams (unrecognized sec tion and content) [...] Provider Active S tart: February 27, 2024 Monique Emmanuel NP-Teresa Primary Care Provider Active Start: February 27, 2024 Team Status: Inactive Member Role Status Dates Monique Emmanuel NP-Teresa Primary Care Provider Active Start: May 16, 2024 End: May 16, 2024 Pato Avelar DPM Attending Provider Active Start: May 16, 2024 End: May 16, 2024 Police Booking Officer Relationship Specialty Start Date End Date Eirch Garcia MD [address] [place] [phone] PCP - General Family Medicine 07/24/24 Monique Emmanuel MD [address] [place] [address] Referring Physician Family Medicine 03/29/24 Monique Emmanuel MD [address] [place] [address] Referring Physician Family Medicine 07/24/24 Jaime Camargo DO [address] [place] [address] Otolaryngology 07/24/24 Police Booking Officer Relationship Specialty Start Date End Date Erich Garcia MD [address] [place] [address] PCP - General Family Medicine 07/24/24 Monique Emmanuel MD [address] [place] [phone] Referring Physician Family Medicine 03/29/24 Monique Emmanuel MD [address] [place] [phone] Referring Physician Family Medicine 07/24/24 Jaime Camargo DO [address] [address] Otolaryngology 07/24/24 Police Booking Officer Relationship Specialty Start Date End Date Erich Garcia MD [address] [place] [phone] PCP - General Family Medicine 07/24/24 Monique Emmaunel MD [address] [place] [phone] Referring Physician Family Medicine 03/29/24 Monique Emamnuel MD [address] [place] [phone] Referring Physician Family Medicine 07/24/24 Jaime Camargo DO [address] [place] [address] Otolaryngology 07/24/24 Police Booking Officer Relationship Specialty [place] [address] [place] [phone] PCP - General Family Medicine 07/24/24 Monique Emmanuel MD [address] [place] [address] Referring Physician Family Medicine 03/29/24 Monique Emmanuel MD [address] [place] [phone] Referring Physician Family Medicine 07/24/24 Jaime Camargo DO [address] [place] [address] Otolaryngology 07/24/24 Police Booking Officer Relationship Specialty Start Date End Date Erich Garcia MD [address] [place] [phone] PCP - General Family Medicine 07/24/24 Monique Emmanuel MD [address] [place] [phone] Referring Physician Family Medicine 03/29/24 [place] [address] [place] [address] Referring Physician Family Medicine 07/24/24 Jaime Camargo DO [address] [place] [address] Otolaryngology 07/24/24 Police Booking Officer Relationship Specialty Start Date End Date Erich Garcia MD [address] [place] [phone] PCP - General Family Medicine 07/24/24 Monique Emmanuel MD [address] [place] [phone] Referring Physician Family Medicine 03/29/24 Monique Emmanuel MD [address] [place] [phone] Referring Physician Family Medicine 07/24/24 Jaime Camargo DO [address] [place] [address] Otolaryngology 07/24/24 Police Booking Officer Relationship Specialty Start Date End Date Erich Garcia MD [address] [place] [phone] PCP - General Family Medicine 07/24/24 Monique Emmanuel MD [address] [place] [phone] Referring Physician Family Medicine 03/29/24 Monique Emmanuel MD [address] [place] [phone] Referring Physician Family Medicine 07/24/24 Jaime Camargo DO [address] [place] [address] Otolaryngology 07/24/24 Police Booking Officer Relationship Specialty Start Date End Date Erich Garcia MD [address] [place] [phone] PCP - General Family Medicine 07/24/24 Monique Emmanuel MD [address] [place] [address] Referring Physician Family Medicine 03/29/24 Monique Emmanuel MD [address] [place] [phone] Referring Physician Family Medicine 07/24/24 Jaime Camargo DO [address] [place] [address] Otolaryngology 07/24/24 Police Booking Officer Relationship Specialty Start Date End Date Unallocated, Yashira Romeo MD [address] [place], [place] [address] [address] PCP - General Family Medicine 03/29/24 Monique Emmanuel MD [address] [place] [address] Referring Physician Family Medicine 03/29/24 Police Booking Officer Relationship Specialty Start Date End Date Erich Garcia MD [address] [place] [phone] PCP - General Family Medicine 07/24/24 Monique Emmanuel MD [address] [place] [address] Referring Physician Family Medicine 03/29/24 Monique Emmanuel MD [address] [place] [phone] Referring Physician Family Medicine 07/24/24 Jaime Camargo DO [address] [place] [address] Otolaryngology 07/24/24 Police Booking Officer Relationship Specialty Start Date End Date Unallocated, [place] [address] PCP - General Family Medicine 03/29/24 Monique Emmanuel MD [address] [place] [address] Referring Physician Family Medicine 03/29/24 Police Booking Officer Relationship Specialty Start Date End Date Erich Garcia MD [address] [place] [phone] PCP - General Family Medicine 07/24/24 Monique Emmanuel MD [address] [place] [phone] Referring Physician Family Medicine 03/29/24 Monique Emmanuel MD [address] [place] [phone] Referring Physician Family Medicine 07/24/24 Jaime Camargo DO [address] [facility] [place] [address] Otolaryngology 07/24/24 Police Booking Officer Relationship Specialty Start Date End Date Erich Garcia MD [address] [place] [phone] PCP - General Family Medicine 07/24/24 Monique Emmanuel MD [address] [place] [phone] Referring Physician Family Medicine 03/29/24 Monique Emmanuel MD [address] [place] [phone] Referring Physician Family Medicine 07/24/24 Jaime Camargo DO [address] [address] Otolaryngology 07/24/24 Police Booking Officer Relationship Specialty Start Date End Date Erich Garcia MD [address] [place] [address] PCP - General Family Medicine 07/24/24 Monique Emmanuel MD [address] [place] [address] Referring Physician Family Medicine 03/29/24 [place] [address] [place] [phone] Referring Physician Family Medicine 07/24/24 Jaime Camargo DO [address] [place] [address] Otolaryngology 07/24/24 Police Booking Officer Relationship Specialty Start Date End Date Unallocated, Noms MD Ousmane [address] [place] [address] PCP - General Family Medicine 03/29/24 07/23/24 Erich Garcia MD [address] [place] [address] PCP - General Family Medicine 07/24/24 Monique Emmanuel MD [address] [place] [address] Referring Physician Family Medicine 03/29/24 Monique Emmanuel MD [address] [place] [address] Referring Physician Family Medicine 07/24/24 Jaime Camargo DO [address] [place] [address] Otolaryngology 07/24/24 Police Booking Officer Relationship Specialty Start Date End Date Monique Emmanuel CNP [address] [place] [address] PCP - General Internal Medicine 12/17/24 Police Booking Officer Relationship Specialty Start Date End Date Monique Emmanuel CNP [address] [place] [address] PCP - General Internal Medicine 12/17/24 Police Booking Officer Relationship Specialty Start Date End Date Monique Emmanuel CNP [address] [place] [address] PCP - General Internal Medicine 12/17/24 Police Booking Officer Relationship Specialty Start Date End Date Monique Emmanuel CNP [address] [place] [address] PCP - General Internal Medicine 12/17/24 Police Booking Officer Relationship Specialty Start Date End Date Monique Emmanuel CNP [address] [place] [address] PCP - General Internal Medicine 12/17/24 Police Booking Officer Relationship Specialty Start Date End Date Monique Emmanuel CNP [address] [place] [address] PCP - General Internal Medicine 12/17/24 Police Booking Officer Relationship Specialty Start Date End Date Monique Emmanuel CNP [address] [place] [address] PCP - General Internal Medicine 12/17/24 Police Booking Officer Relationship Specialty Start Date End Date Monique Emmanuel CNP [address] [place], [place] [id number] PCP - General Internal Medicine 12/17/24 Team Status: Inactive Member Role Status Dates Monique Emmanuel , PRODUCTION MATERIAL COORDINATOR-C Primary Care Provider Active Start: February 05, 2025 End: February 05, 2025 Radha Kong APRN Attending Provider Active Start: February 05, 2025 End: February 05, 2025 Police Booking Officer Relationship Specialty Start Date End Date Monique Emmanuel CNP [address] [place] [address] PCP - General Internal Medicine 12/17/24 Police Booking Officer Relationship Specialty Start Date End Date Monique Emmanuel CNP [address] [place], [place] [id number] PCP - General Internal Medicine 12/17/24 Police Booking Officer Relationship Specialty Start Date End Date Monique Emmanuel CNP [address] [place] [address] PCP - General Internal Medicine 12/17/24 Goals [...] or prosecute any alcohol or drug abuse patient.[facility] the event this information is protected by the Federal Confidentiality of Alcohol and Drug Abuse Patient Records regulations: The Federal rules restrict any use of the information to criminally investigate or prosecute any alcohol or drug abuse patient.[facility] the event this information is protected by the Federal Confidentiality of Alcohol and Drug Abuse Patient Records regulations: The Federal rules restrict any use of the information to criminally investigate or prosecute any alcohol or drug abuse patient.[facility] the event this information is protected by the Federal Confidentiality of Alcohol and Drug Abuse Patient Records regulations: The Federal rules restrict any use of the information to criminally investigate or prosecute any alcohol or drug abuse patient.[facility] the event this information is protected by the Federal Confidentiality of Alcohol and Drug Abuse Patient Records regulations: The Federal rules restrict any use of the information to criminally investigate or prosecute any alcohol or drug abuse patient.[facility] the event this information is protected by the Federal Confidentiality of Alcohol and Drug Abuse Patient Records regulations: The Federal rules restrict any use of the information to criminally investigate or prosecute any alcohol or drug abuse patient.[facility] the event this information is protected by the Federal Confidentiality of Alcohol and Drug Abuse Patient Records regulations: The Federal rules restrict any use of the information to criminally investigate or prosecute any alcohol or drug abuse patient.[facility] the event this information is protected by the Federal Confidentiality of Alcohol and Drug Abuse Patient Records regulations: The Federal rules restrict any use of the information to criminally investigate or prosecute any alcohol or drug abuse patient.[facility]In the event this information is protected by the Federal Confidentiality of Alcohol and Drug Abuse Patient Records regulations: The Federal rules restrict any use of the information to criminally investigate or prosecute any alcohol or drug abuse patient.[facility] HospitalIn the event this information is protected by the Federal Confidentiality of Alcohol and Drug Abuse Patient Records regulations: The Federal rules restrict any use of the information to criminally investigate or prosecute any alcohol or drug abuse patient.[facility] the event this information is protected by the Federal Confidentiality of Alcohol and Drug Abuse Patient Records regulations: The Federal rules restrict any use of the information to criminally investigate or prosecute any alcohol or drug abuse patient.[facility] HospitalIn the event this information is protected by the Federal Confidentiality of Alcohol and Drug Abuse Patient Records regulations: The Federal rules restrict any use of the information to criminally investigate or prosecute any alcohol or drug abuse patient.[facility] HospitalIn the event this information is protected by the Federal Confidentiality of Alcohol and Drug Abuse Patient Records regulations: The Federal rules restrict any use of the information to criminally investigate or prosecute any alcohol or drug abuse patient.[facility] HospitalIn the event this information is protected by the Federal Confidentiality of Alcohol and Drug Abuse Patient Records regulations: The Federal rules restrict any use of the information to criminally investigate or prosecute any alcohol or drug abuse patient.[facility] HospitalIn the event this information is protected by the Federal Confidentiality of Alcohol and Drug Abuse Patient Records regulations: The Federal rules restrict any use of the information to criminally investigate or prosecute any alcohol or drug abuse patient.[facility] HospitalIn the event this information is protected by the Federal Confidentiality of Alcohol and Drug Abuse Patient Records regulations: The Federal rules restrict any use of the information to criminally investigate or prosecute any alcohol or drug abuse patient.[facility] HospitalIn the event this information is protected by the Federal Confidentiality of Alcohol and Drug Abuse Patient Records regulations: The Federal rules restrict any use of the information to criminally investigate or prosecute any alcohol or drug abuse patient.[facility] HospitalIn the event this information is protected by the Federal Confidentiality of Alcohol and Drug Abuse Patient Records regulations: The Federal rules restrict any use of the information to criminally investigate or prosecute any alcohol or drug abuse patient.[facility] FOR RECORDS PERTAINING TO PATIENTS WHO [...] BE BASED ON THE PRIMARY CLINICAL RECORDS. [facility]. provides no warranty or guarantee of the accuracy or completeness of information in this document.
--- NOTE | 2025-03-05 20:12 | ED.ABDPAIN1 ---
HPI - Abdominal Pain General Chief Complaint: Abdominal Pain Stated Complaint: abdominal pain, nausea Time Seen by Provider: 03/05/25 20:00 Source: patient Mode of arrival: walk-in Limitations: no limitations History of Present Illness HPI narrative: This 34-year-old female who has had pancreatitis at least 3 x 1 from gallstones and the 2 others for unknown reasons presents for evaluation of epigastric abdominal pain and right upper quadrant abdominal pain associated with nausea and diarrhea. The patient states his symptoms started earlier today. She has had some chills. She has not vomited. There is no radiation of the pain into her back or chest. She has had 4 episodes of diarrhea today. She denies any chest pain or shortness of breath. She did have her gallbladder removed after an ERCP when she had multiple stones in her bile ducts and developed pancreatitis after the ERCP. She denies that she is on any weight loss medications or new medications. Related Data Home Medications ?Medication ?Instructions ?Recorded ?Confirmed cholecalciferol (vitamin D3) 125 125 mcg PO QAM 10/26/24 03/05/25 mcg (5,000 unit) tablet escitalopram oxalate 20 mg tablet 20 mg PO QAM 10/26/24 03/05/25 glipizide 5 mg tablet 5 mg PO QAM 10/26/24 03/05/25 metformin 500 mg tablet 500 mg PO BID 10/26/24 03/05/25 trazodone 100 mg tablet 100 mg PO QPM PRN sleep 10/26/24 03/05/25 Allergies Allergy/AdvReac Type Severity Reaction Status Date / Time Sulfa (Sulfonamide Allergy Severe Hives Verified 03/05/25 20:04 Antibiotics) Review of Systems ROS Status of ROS 10 or more systems reviewed and unremarkable except as noted in history and below [facility] Medical History (Updated 03/05/25 @ 22:16 by Eun Tucker MD) Arthritis of right acromioclavicular joint ?M19.011 - Primary osteoarthritis, right shoulder (ICD-10) Acromioclavicular joint arthritis ?M19.019 - Primary osteoarthritis, unspecified shoulder (ICD-10) Accessory navicular bone of both feet ?Q74.2 - Other congenital malformations of lower limb(s), including pelvic girdle (ICD-10) Navicular fracture of ankle ?S92.253A - Displaced fracture of navicular [scaphoid] of unspecified foot, initial encounter for closed fracture (ICD-10) Osteoarthritis ?M19.90 - Unspecified osteoarthritis, unspecified site (ICD-10) Insomnia ?G47.00 - Insomnia, unspecified (ICD-10) Anxiety ?F41.9 - Anxiety disorder, unspecified (ICD-10) Restless leg ?G25.81 - Restless legs syndrome (ICD-10) GERD (gastroesophageal reflux disease) ?K21.9 - Gastro-esophageal reflux disease without esophagitis (ICD-10) Diabetes ?E11.9 - Type 2 diabetes mellitus without complications (ICD-10) Surgical History (Updated 10/26/24 @ 10:36 by Laura Cabral) History of cholecystectomy ?Z90.49 - Acquired absence of other specified parts of digestive tract (ICD-10) Family History (Updated 10/26/24 @ 10:32 by Laura Cabral) Other Family history of COPD (chronic obstructive pulmonary disease) Family history of coronary artery disease Family history of diabetes mellitus Family history of seizures Social History (Updated 10/26/24 @ 10:30 by Laura Cabral) Within the past year, how often did you have a drink containing alcohol: never Score interpretation: A score less than 3 is consistent with normal alcohol consumption. Smoking status: Never smoker Non-prescribed substance use: denies use Previous occupational history: [employer] Highest level of school completed/degree received: high school graduate Little interest or pleasure in doing things: not at all Feeling down, depressed, or hopeless: not at all Exam Narrative Exam Narrative: Vital signs and Nursing Notes reviewed: Is afebrile with a normal pulse, blood pressure is elevated 150/86, she is not hypoxic with pulse ox of 96% on room air General: Awake, alert, oriented, nontoxic but uncomfortable appearing morbidly obese female, she is holding her epigastrium and right upper quadrant, no respiratory distress, no active vomiting HEENT: Normocephalic atraumatic, mucous membranes are moist and pink, eyes are clear, normal conjunctiva, vision is grossly intact Neck: Supple Chest: Lungs are clear to auscultation with good air entry, there is no wheezing rhonchi or rales appreciated no accessory muscle use, patient is speaking in complete sentences-no chest wall tenderness to palpation CVS: Regular rate and rhythm S1-S2, no murmurs rubs or gallops, pulses are brisk and equal bilaterally ABD: Obese, soft, epigastric tenderness and tenderness in the right upper quadrant with voluntary guarding, the remainder of the abdominal exam is benign with no rebound guarding or rigidity. Bowel sounds are normal Extremities: Moving all extremities, right lower extremity is in a boot status post leg surgery Skin: Normal in appearance without rash,pallor, petechiae or purpura Neuro: No focal deficits Constitutional Vital Signs, click to edit/add: Last Vital Signs Temp 97.9 F 03/05/25 20:00 Pulse 74 03/05/25 22:50 Resp 22 H 03/05/25 22:50 BP 144/84 H 03/05/25 22:50 Pulse Ox 98 03/05/25 22:50 O2 Del Method Room Air 03/05/25 21:35 Course Vital Signs Vital signs: Vital Signs Temperature 97.9 F 03/05/25 20:00 Pulse Rate 76 03/05/25 20:00 Respiratory Rate 18 03/05/25 20:00 Blood Pressure 150/86 H 03/05/25 20:00 Pulse Oximetry 96 03/05/25 20:00 Oxygen Delivery Method Room Air 03/05/25 20:00 Temperature 97.9 F 03/05/25 20:00 Pulse Rate 74 03/05/25 22:50 Respiratory Rate 22 H 03/05/25 22:50 Blood Pressure 144/84 H 03/05/25 22:50 Pulse Oximetry 98 03/05/25 22:50 Oxygen Delivery Method Room Air 03/05/25 21:35 MDM - Abdominal Pain MDM Narrative Medical decision making narrative: This 34-year-old female with a history of cholecystectomy and 3 episodes of pancreatitis presents for evaluation of epigastric abdominal pain with nausea and 4 episodes of diarrhea starting earlier today. She has not had a fever or any active vomiting. She is tender in the right upper quadrant and epigastrium. An IV was placed and she was medicated with IV fluids, Zofran, Pepcid, Toradol and Bentyl. Reevaluation she is still nauseated and was given IV Reglan and Benadryl. Labs are reviewed. She has a mildly elevated white count at 12.3 with a normal hemoglobin. Electrolytes are normal. Liver function tests and lipase are also normal. CT scan of the abdomen pelvis with IV contrast shows no acute abnormality in the abdomen or pelvis. The results of the CT scan were discussed with her. She does take omeprazole at home. She will be discharged home with a prescription for Zofran and Bentyl. She has not had any additional episodes of diarrhea and has not vomited while in the emergency department. I explained to her that she may be coming down with the viral stomach illness that is going around in light of the fact that she has had diarrhea throughout the day today. She was encouraged to drink plenty of clear liquids and slowly advance her diet as tolerated. Lab Data Labs: Lab Results 03/05/25 Range/Units 20:33 WBC 12.3 H (4.0-11.0) 10^3/uL RBC 4.68 (4.20-5.40) 10^6/uL Hgb 12.0 (12.0-16.0) g/dL Hct 38.7 (36.0-48.0) % MCV 82.7 (81.0-99.0) fL MCH 25.6 L (26.7-34.0) pg MCHC 31.0 (29.9-35.2) g/dL RDW 15.3 H (11.0-15.0) % Plt Count 323 (150-450) 10^3/uL MPV 9.4 L (9.5-13.5) fL Neut % (Auto) 70.1 (43.0-75.0) % Lymph % (Auto) 20.9 (20.5-60.0) % [place] % (Auto) 5.1 (1.7-12.0) % Eos % (Auto) 3.0 (0.9-7.0) % Baso % (Auto) 0.5 (0.2-2.0) % Neut # (Auto) 8.6 H (1.4-6.5) 10^3/uL Lymph # (Auto) 2.6 (1.2-3.8) 10^3/uL [place] # (Auto) 0.6 (0.3-0.8) 10^3/uL Eos # (Auto) 0.4 (0.0-0.7) 10^3/uL Baso # (Auto) 0.1 (0.0-0.1) 10^3/uL Abs Immat Gran (auto) 0.05 H (0.00-0.03) 10^3/uL Imm/Tot Granulo (auto) 0.4 (0.0-0.5) % Sodium 141 (136-145) mmol/L Potassium 4.1 (3.5-5.1) mmol/L Chloride 105 (98-107) mmol/L Carbon Dioxide 29.7 (21.0-32.0) mmol/L Anion Gap 10.4 BUN 16.0 (7.0-18.0) mg/dL Creatinine 0.94 (0.55-1.02) mg/dL Est GFR ( Amer) >60 (>=60 mL/min/1.73m^2) Est GFR (Non-Af Amer) >60 (>=60 mL/min/1.73m^2) BUN/Creatinine Ratio 17.0 Glucose 93 (74-106) mg/dL Lactate 1.0 (0.4-2.0) mmol/L Calcium 9.2 (8.5-10.1) mg/dL Total Bilirubin 0.6 (0.2-1.0) mg/dL AST 22 (15-37) U/L ALT 33 (14-59) U/L Alkaline Phosphatase 72 (46-116) U/L Total Protein 7.3 (6.4-8.2) g/dL Albumin 3.1 L (3.4-5.0) g/dL Globulin 4.2 g/dL Albumin/Globulin Ratio 0.7 Lipase 34.0 (16.0-77.0) U/L HCG, Quant <1 mIU/mL Discharge Plan Discharge Chief Complaint: Abdominal Pain Clinical Impression: Abdominal pain, Nausea, Diarrhea Patient Disposition: Home, Self-Care Time of Disposition Decision: 22:15 Condition: Good Prescriptions / Home Meds: No Action cholecalciferol (vitamin D3) 125 mcg (5,000 unit) tablet 125 mcg PO QAM escitalopram oxalate 20 mg tablet 20 mg PO QAM glipizide 5 mg tablet 5 mg PO QAM trazodone 100 mg tablet 100 mg PO QPM PRN (Reason: sleep) metformin 500 mg tablet 500 mg PO BID Print Language: Tamazight Instructions: Acute Nausea and Vomiting (ED), Acute Diarrhea (ED), Abdominal Pain (ED) Referrals: GUERRERO EMMANUEL [Primary Care Provider] - 1 week Discharge Date/Time: 03/05/25 22:52
[2025-03-05 20:39] LABS: Basophils Absolute Auto 0.1 10^3/uL (0.0-0.1); Basophils Percent Auto 0.5 % (0.2-2.0); Eosinophils Absolute Auto 0.4 10^3/uL (0.0-0.7); Hematocrit 38.7 % (36.0-48.0); Immature Granulocytes Abs Auto 0.05 10^3/uL (0.00-0.03); Immature Granulocytes Pct Auto 0.4 % (0.0-0.5); Lymphocytes Absolute Auto 2.6 10^3/uL (1.2-3.8); Lymphocytes Percent Auto 20.9 % (20.5-60.0); Mean Corpuscular Hemoglobin 25.6 pg (26.7-34.0); Mean Corpuscular Volume 82.7 fL (81.0-99.0); Mean Platelet Volume 9.4 fL (9.5-13.5); Monocytes Absolute Auto 0.6 10^3/uL (0.3-0.8); Monocytes Percent Auto 5.1 % (1.7-12.0); Neutrophils Absolute Auto 8.6 10^3/uL (1.4-6.5); Neutrophils Percent Auto 70.1 % (43.0-75.0); Platelet Count 323 10^3/uL (150-450); Red Blood Count 4.68 10^6/uL (4.20-5.40); Red Cell Distribution Width 15.3 % (11.0-15.0); White Blood Count 12.3 10^3/uL (4.0-11.0)
[2025-03-05] MEDS: 0.9 % SODIUM CHLORIDE 1,000 ML 1000 ML IV (20:39)
[2025-03-05] MEDS: DICYCLOMINE HCL 10 MG CAPSULE 20 MG PO (20:40)
[2025-03-05] MEDS: ONDANSETRON PF 4 MG/2 ML VIAL IV (20:41)
[2025-03-05] MEDS: FAMOTIDINE/PF 20 MG/2 ML VIAL IV (20:41)
[2025-03-05] MEDS: KETOROLAC TROMETHAMINE 30 MG/ML VIAL IVP (20:41)
[2025-03-05 21:03] LABS: Alanine Aminotransferase 33 U/L (14-59); Albumin Globulin Ratio 0.7; Albumin Level 3.1 g/dL (3.4-5.0); Alkaline Phosphatase 72 U/L (46-116); Anion Gap 10.4; Aspartate Amino Transferase 22 U/L (15-37); Bilirubin Total 0.6 mg/dL (0.2-1.0); Calcium 9.2 mg/dL (8.5-10.1); Carbon Dioxide 29.7 mmol/L (21.0-32.0); Chloride 105 mmol/L (98-107); Estimated GFR (African America >60 (>=60 mL/min/1.73m^2); Estimated GFR (Non-African Ame >60 (>=60 mL/min/1.73m^2); Globulin 4.2 g/dL; Glucose 93 mg/dL (74-106); Potassium 4.1 mmol/L (3.5-5.1); Sodium 141 mmol/L (136-145); Total Protein 7.3 g/dL (6.4-8.2)
[2025-03-05 21:23] LABS: HCG Quantitative <1 mIU/mL
[2025-03-05 21:35] VITALS: O2SAT 98
[2025-03-05] MEDS: METOCLOPRAMIDE HCL 10 MG/2 ML VIAL IVP (22:20)
[2025-03-05] MEDS: DIPHENHYDRAMINE HCL 50 MG/ML VIAL 12.5 MG IVP (22:20)
[2025-03-05 22:50] VITALS: BP 144/84; PULSE 74; O2SAT 98
== END 2025-03-05 22:52 | disposition home or self-care (01) ==
PROVIDERS: Emergency Provider Emergency Medicine; PCP Nurse Practitioner Family
DX: R10.13 Epigastric pain (principal); R11.0 Nausea; R10.11 Right upper quadrant pain; R19.7 Diarrhea, unspecified; Z90.49 Acquired absence of other specified parts of digestive tract; E66.01 Morbid (severe) obesity due to excess calories; Z68.44 Body mass index [BMI] 60.0-69.9, adult
CPT/HCPCS: 36415; 74177; 80053; 83605; 83690; 84702; 85025; 96361; 96374; 96375; 99285; J1200; J1885; J2405; J2765; J3490; Q9967

== ENCOUNTER 2025-06-14 09:28 | Outpatient (OUT) | payer BC, SELFPAY ==
--- OUTSIDE RECORDS SUMMARY | 2024-12-21 10:30 | XMS_ITS ---
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 Name Role Phone Reinaldo Burns Primary Care Provider [phone] Lizzette Jnoes REASON FOR VISIT FILLING Encounters Encounter Location Date Provider Diagnosis [place] [place] [address] 12/21/2024 Lizzette Montoya Plan Of Treatment Next Appt Details Provider Name:Peter Ascencio, 1 04:30:00 PM, [address], [place], [address], Provider Name:Mey Duong , 09/12/2025 03:15:00 PM, [address] [place], [address], Progress Notes * HECTOR ROCHEB:1990 ([age] yo F)Acc No.[id number]:12/21/2024 Patient: Lewis NOEL FREEMAN Provider: Joseph MONTOYA DDS :1990 A ge:34 Y S ex:Female Date:12/21/2024 Address:[address] [place], [place] [phone] Pcp:Reinaldo Burns Subjective: * Chief Complaints: * 1 . FILLING. * Medical History: Objective: * Vitals: Assessment: Plan: * Treatment: * Images: * Electronic signature of Radha Montoya DDS on 06/14/2025 at 07:43 AM EDT Sign off status: Pending * Provider: Joseph MONTOYA DDS Date: 12/21/2024 Generated for Jonnie leonard/Estella/Steven on: 0 06/14/2025 07:43 AM EDT
--- OUTSIDE RECORDS SUMMARY | 2025-03-04 05:20 | XMS_ITS ---
Author Organization [facility] Address [address] [place] [address] Care Team Providers Care Center Receptionist Name Role Phone Gaurav Snydre [facility] [phone] REASON FOR VISIT right shoulder recheck - dos 11/05 Encounters Encounter Location Date Provider Diagnosis [facility] [facility] [address] [place] [address] 03/04/2025 Gaurav Snyder Plan Of Treatment No Information Progress Notes * IVAN ROCHEGABRIELB:1990 ([age] yo F)Acc No.[id number]:03/04/2025 Progress Notes Patient: NOEL PAZ Provider: Spencer Snyder MD :1990 A ge:34 Y S ex:Female Date:03/04/2025 Address:[address] [place], [place] [id number] Subjective: * Chief Complaints: * 1 . Right shoulder recheck - dos 11/05. * Medical History: Objective: * Vitals: Assessment: Plan: * Treatment: Forms: * Images: * Electronic signature of Chay Snyder MD on 06/14/2025 at 07:44 AM EDT Sign off status: Pending * Provider: Spencer Snyder MD Date: 03/04/2025 Generated for Jonnie leonard/Estella/eTlokeshitting on: 06/14/2025 07:44 AM EDT
--- OUTSIDE RECORDS SUMMARY | 2025-04-09 04:00 | XMS_ITS ---
Author Organization [facility] in [place] Address [address] [place] [address] Care Team Providers Care Background Check Coordinator Name Role Phone Monique Razo Primary Care Provider Medications Medication SIG (Take, Route, Fr equency, Duration) Notes Start Date End Date Status Adipex-P 37.5 MG 1 tablet before augusto kfast Orally Once a day for 30 days 04/09/2025 Active Encounters Encounter Location Date Provider Diagnosis [facility] [address] [place] [address] 04/09/2025 Monique Razo Class 3 obesity E66.01 Assessments Encounter Date Diagnosis (ICD Code) Assessment Notes Treatment Notes Treatment Clinical Notes Section Notes 04/09/2025 Class 3 obesity (ICD-10 - E66.01) Plan Of Treatment Medication Medication Name Sig Start Date Stop Date Notes Adipex-P 37.5 MG 1 tablet before augusto kfast Orally Once a day for 30 days 04/09/2025 Next Appt Details Provider Name:Monique rutledge, 07/02/2025 04:15:00 PM, [address] [place], [address], Progress Notes * Kyung ROCHE LDOB:1990 (34 yo F)Acc No.[id number]:04/09/2025 Patient: Lewis ADISMELVINKyung :1990 A ge:34 Y S ex:Female Address:[address] [place] [address], [id number] * Refills Refill Adipex-P Tablet, 37.5 MG, Orally, 30 Tablet, 1 tablet before breakfast, Once a day, 30 days, Refills=0 Subjective: * Chief Complaints: * * Medical History: * Surgical History: * Hospitalization/Major Diagno stic Procedure: * Medications: Objective: * Vitals: * Physical Examination: Assessment: * Assessment: 1. lass 3 obesity - E66.01 Plan: * Treatment: * Procedure Codes: * true * Date: Generated for Jonnie leonard/Estella/Felizsmitting on: 0 06/14/2025 07:46 AM EDT
--- OUTSIDE RECORDS SUMMARY | 2025-05-09 11:15 | XMS_ITS ---
Author Organization [facility] [place] Address [address] [place] [address] Care Team Providers Care Jeep Driver Name Role Phone Monique Razo Primary Care Provider [phone] Allergies Allergen (clinical drug ingredient) Drug/Non Drug Allergy documented on EMR Reaction Allergy Type Onset Date Status Substance with sulfonamide structure and antibacterial mechanism of action (substance) Sulfa Antibiotics rash/hives Drug Allergy Active REASON FOR VISIT Presents to office for 1 month follow up on Adipex Medications Medication SIG (Take, Route, Frequency, Duration) Notes Start Date End Date Status Adipex-P 37.5 MG 1 tablet before breakfast Orally Once a day for 30 days 05/09/2025 Active Omeprazole 20 MG TAKE 1 CAPSULE BY MOUTH EVERY DAY for 90 Active OneTouch Delica Plus [id number] - USE TO TEST BLOOD SUGAR ONCE EVERY MORNING for 90 Active OneTouch Ultra - USE 1 STRIP TO TEST FASTING BLOOD SUGAR ONCE EVERY MORNING for 90 Active traZODone HCl 100 MG TAKE 1 TABLET BY MOUTH EVERYDAY AT BEDTIME NEEDED for 90 days Active Ferrous Sulfate 325 (65 Fe) MG 1 tablet Orally Three times a Week for 30 days 02/12/2025 Active glipiZIDE 5 MG one tablet po BID for 90 days 30 min before meals Active metFORMIN HCl 500 MG TAKE 1 TABLET BY MOUTH TWICE A DAY WITH A MEAL FOR 30 DAYS for 90 Active Natural Vitamin D-3 125 MCG (5000 UT) TAKE 1 TABLET BY MOUTH EVERY DAY FOR 30 DAYS for 90 Active Escitalopram Oxalate 20 MG 1/2 tablet for the first week then 1 tablet Orally Once a day for 90 days Active Dexcom G7 Vice President Of Manufacturing - USE DIRECTED for 30 Active Dexcom G7 Sensor - as directed for 28 days 09/20/2024 Active Social History Tobacco Use: Social History Observation Description Date Details (start date - stop date) Never Smoker NA - NA Tobacco Use/Smoking Question Answer Notes Patient is a nonsmoker AUDIT-C (Standard) Question Answer Notes Did you have a drink containing alcohol in the p ast year? No Points 0 Interpretation Negative Vital Signs Weight 344.2 lbs 05/09/2025 Height 61 in 05/09/2025 Blood pressure systolic 130 mm Hg 05/09/20 25 Blood pressure diastolic 82 mm Hg 025 BMI 65.03 kg/m2 05/09/2025 Encounters Encounter Location Date Provider Diagnosis [facility] [address] [place] [address] 05/09/2025 Monique Razo Class 3 obesity E66.01 Assessments Encounter Date Diagnosis (ICD Code) Assessment Notes Treatment Notes Treatment Clinical Notes Section Notes 05/09/2025 Class 3 obesity (ICD-10 - E66.01) work on diet fu 4 weeks Plan Of Treatment Medication Medication Name Sig Start Date Stop Date Notes Adipex-P 37.5 MG 1 tablet before augusto kfast Orally Once a day for 30 days 05/09/2025 Treatment Notes Assessment Notes Class 3 obesity work on diet fu 4 weeks Next Appt Details Follow Up: prn,4 Weeks, Reas on: Provider Name:Monique rutledge, 07/02/2025 04:15:00 PM, [address] [place], [address], Progress Notes * Kyung ROCHE LDOB:1990 (34 yo F)Acc No.[id number]:05/09/2025 Progress Note Patient: Kevin PAZdominique Piedra Provider: Cristine Razo ([facility]), TEST DIRECTOR :1990 A ge:34 Y S ex:Female Date:05/09/2025 Address:[address] [place], [place] [id number] Check In:03:10 PM ESTCheck O ut:03:31 PM EST Subjective: * Chief Complaints: * 1 . Presents to office for 1 month follow up on Adipex. * HPI: G eneral: Adipex down about 10 lbs no concerns wants to continue. * ROS: G eneral/Constitutional: Fever d enies. H eadache d enies. W eight loss�is intentional. O phthalmologic: Discharge d enies. E ye Pain d enies. I tching and redness d enies. E NT: Nasal discharge d enies. N enedelia congestion d enies.�Sore throat d enies. C ardiovascular: Chest tightness/ heavy pressure d enies. R apid heart rate d enies. S welling of extremities d enies. C hest pain d enies. � R espiratory: Productive cough d enies. C hest pain d enies. C ough d enies. S hortness of breath d enies. W heezing d enies. � G astrointestinal: Abdominal pain d enies. C onstipation d enies. D ecreased appetite d enies. D iarrhea d enies. N ausea d enies. V omiting�denies. G enitourinary: Urinary incontinence d enies. P ainful urination d enies. M usculoskeletal: Back pain d enies. N zoltan pain d enies. M uscle aches d enies. S kin: Rash d enies. S kin lesion(s) d enies. 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), including pelvic girdle Modified On:03/30/2024U Status:confirmed M76.822 Posterior tibial ten dinitis, left leg Modified On:03/30/2024U Status:confirmed M24.576 Contracture, unspeci fied foot Modified On:03/30/2024W/U Status:confirmed H60.92 External otitis of l eft ear Modified On:06/12/2024W/U Status:confirmed E66.01 Class 3 obesity Modified On:10/16/2024W/U Status:confirmed 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 * Surgical History: C HOLECYSTECTOMY , Steroid injection in feet , Lt foot modified Kidner procedure w/ posterior splint 05/16/2024, Rt foot kidner procedure 09/20, Rt shoulder scope with partial removal of bone , left foot kidner procedure . * Hospitalization/Major Diagno stic Procedure: G allbladder . * Family History: F ather: unknown. M other: , depression, bipolar, diagnosed with Diabetes mellitus without mention of complication, type II or unspecified type, not stated as uncontrolled, Unspecified essential hypertension. B rother(s): alive. S ister(s): alive, depression, bipolar, mental health issues, diagnosed with Unspecified heart disease. 1 brother(s) , 2 sister(s) . 2 son(s) - healthy. . Children are adopted. * Social History: T obacco Use: T obacco Use/Smoking P atient is a n onsmoker D rug/Alcohol: A BEKA-C (Standard) D id you have a drink containing alcohol in the past year? N o P oints 0 I nterpretation N egative * Medications: T aking Adipex-P(Phentermine HCl) 37.5 MG Tablet 1 tablet before breakfast Orally Once a day , Taking Dexcom G7 Vice President Of Manufacturing(Continuous Glucose Vice President Of Manufacturing) - Device USE DIRECTED , Taking Dexcom G7 Sensor(Continuous Glucose Sensor) - Miscellaneous as directed , Taking Escitalopram Oxalate 20 MG Tablet 1/2 tablet for the first week then 1 tablet Orally Once a day , Taking Ferrous Sulfate 325 (65 Fe) MG Tablet 1 tablet Orally Three times a Week , Taking glipiZIDE 5 MG Tablet one tablet po BID , Notes to Pharmacist: 30 min before meals, Taking metFORMIN HCl 500 MG Tablet TAKE 1 TABLET BY MOUTH TWICE A DAY WITH A MEAL FOR 30 DAYS , Taking Natural Vitamin D-3(Cholecalciferol) 125 MCG (5000 UT) Tablet TAKE 1 TABLET BY MOUTH EVERY DAY FOR 30 DAYS , Taking Omeprazole 20 MG Capsule Delayed Release TAKE 1 CAPSULE BY MOUTH EVERY DAY , Taking OneTouch Delica Plus Lokgmf94C(Lancets) - Miscellaneous USE TO TEST BLOOD SUGAR ONCE EVERY MORNING , Taking OneTouch Ultra(Glucose Blood) - Strip USE 1 STRIP TO TEST FASTING BLOOD SUGAR ONCE EVERY MORNING , Taking traZODone HCl 100 MG Tablet TAKE 1 TABLET BY MOUTH EVERYDAY AT BEDTIME NEEDED , Medication List reviewed and reconciled with the patient * Allergies: S ulfa Antibiotics: rash/hives - Allergy. Objective: * Vitals: W t:344.2lbs, Ht: 61 in, BP:130/82mm Hg, BMI:65.03Index, Ht-cm: 154.94 cm, Wt-k.13 kg. * Examination: G eneral Examinations: GENERAL APPEARANCE: a lert and oriented, i n no acute distress. EYES: c onjunctiva normal, sclera non-icteric. NOSE: n ormal external appearance. LUNGS: c lear to auscultation bilaterally. CARDIO: r egular rate and rhythm, S1, S2 normal. ABDOMEN: s oft, nontender. MUSCULOSKELETAL: G ait and station normal. SKIN: w arm and dry. Assessment: * Assessment: 1. C lass 3 obesity - E66.01 (Primary) Plan: * Treatment: * Preventive Medicine: Screenings/Counseling: B PR ACTION PLAN Above Normal BMI Follow-up D ietary management education, guidance, and counseling See treatment section of progress note for complete details of management plan. * Follow Up: p rn,4 Weeks * * Sign off status: Completed Visit Status: C HK (Check Out) true * Provider: Cristine Razo ([facility]), TEST DIRECTOR Date: 0 05/09/2025 Generated for Jonnie leonard/Estella/eTransmitting on: 0 06/14/2025 07:46 AM EDT History and Physical Notes * HPI (History of Present Illness) Category Sub-Category Detail Notes Category Not es General Adipex down about 10 lbs no concerns wants to continue Examination Category Sub-Category Detail Notes Category Not es General Examinations GENERAL APPEARANCE: alert a nd oriented, in no acute distress EYES: conjunctiva normal, sclera non-icteric EARS: NOSE: normal external appe arance THROAT: CARDIO: regular rate and rhy thm, S1, S2 normal LUNGS: clear to auscultatio n bilaterally ABDOMEN: soft, nontender SKIN: warm and dry BACK: MUSCULOSKELETAL: Gait and station nor mal LYMPH NODES:
--- OUTSIDE RECORDS SUMMARY | 2025-05-15 10:40 | XMS_ITS ---
Author Organization [facility] Address [address] [place] [address] Care Team Providers Care Facility Specialist Name Role Phone Reinaldo Burns Primary Care Provider Lizzette Jones Unavailable [phone] Tina Carrasco Unavailable [phone] REASON FOR VISIT FILLING Encounters Encounter Location Date Provider Diagnosis [facility] [address] [place] [address] 05/15/2025 Tina Carrasco Plan Of Treatment Next Appt Details Provider Name:Peter Ascencio, 1 04:30:00 PM, [address] [place], [address], Provider Name:Mey Duong , 09/12/2025 03:15:00 PM, [address] [place], [address], Progress Notes * HECTOR ROCHEB:1990 ([age] yo F)Acc No.[id number]:05/15/2025 Patient: Lewis NOEL FREEMAN Provider: Rogers Carrasco :1990 A ge:34 Y S ex:Female Date:05/15/2025 Address:[address] [place], [place] [id number] Pcp:Reinaldo Burns Subjective: * Chief Complaints: * 1 . FILLING. * Medical History: Objective: * Vitals: Assessment: Plan: * Treatment: * Images: * Electronic signature of Bhavin Carrasco DMD on 06/14/2025 at 07:43 AM EDT Sign off status: Pending * Provider: Rogers Carrasco Date: 0 05/15/2025 Generated for Jonnie leonard/Estella/Steven on: 0 06/14/2025 07:43 AM EDT
--- OUTSIDE RECORDS SUMMARY | 2025-06-04 11:30 | XMS_ITS ---
Author Organization [facility] [place] Address [address] [place] [address] Care Team Providers Care Dividend Clerk Name Role Phone Danni Monique Primary Care Provider Allergies Allergen (clinical drug ingredient) Drug/Non Drug Allergy documented on EMR Reaction Allergy Type Onset Date Status Substance with sulfonamide structure and antibacterial mechanism of action (substance) Sulfa Antibiotics rash/hives Drug Allergy Active REASON FOR VISIT 1 MO F/U Medications Medication SIG (Take, Route, Frequency, Duration) Notes Start Date End Date Status OneTouch Delica Plus Aczsir03L - USE TO TEST BLOOD SUGAR ONCE EVERY MORNING for 90 Active Omeprazole 20 MG TAKE 1 CAPSULE BY MO UT EVERY DAY for 90 Active traZODone HCl 100 MG TAKE 1 TABLET BY MO UT EVERYDAY AT BEDTIME NEEDED for 90 days Active OneTouch Ultra - USE 1 STRIP TO TEST FASTING BLOOD SUGAR ONCE EVERY MORNING for 90 Active Natural Vitamin D-3 125 MCG (5000 UT) TAKE 1 TABLET BY MOUTH EVERY DAY FOR 30 DAYS for 90 Active Dexcom G7 Sensor - as directed for 28 days Active Ferrous Sulfate 325 (65 Fe) MG 1 tablet Orally Three times a Week for 30 days 02/12/2025 Active Escitalopram Oxalate 20 MG 1/2 tablet fo r the first week then 1 tablet Orally Once a day for 90 days Active metFORMIN HCl 500 MG TAKE 1 TABLET BY MO UTH TWICE A DAY WITH A MEAL FOR 30 DAYS for 90 Active glipiZIDE 5 MG one tablet po BID fo r 90 days Active Dexcom G7 Equipment Sales Specialist - USE DIRECTED for 30 Active Adipex-P 37.5 MG 1 tablet before augusto kfast Orally Once a day for 30 days 06/04/2025 Active Social History Tobacco Use: Social History Observation Description Date Details (start date - stop date) Never Smoker NA - NA Tobacco Use/Smoking Question Answer Notes Patient is a nonsmoker AUDIT-C (Standard) Question Answer Notes Did you have a drink containing alcohol in the p ast year? No Points 0 Interpretation Negative Vital Signs Weight 341.0 lbs 06/04/2025 Height 61 in 06/04/2025 Blood pressure systolic 122 mm Hg 06/04/20 25 Blood pressure diastolic 82 mm Hg 025 BMI 64.42 kg/m2 06/04/2025 Encounters Encounter Location Date Provider Diagnosis [facility] [address] [place] [address] 06/04/2025 Monique Razo Class 3 obesity E66.01 Assessments Encounter Date Diagnosis (ICD Code) Assessment Notes Treatment Notes Treatment Clinical Notes Section Notes 06/04/2025 Class 3 obesity (ICD-10 - E66.01) work on diet Plan Of Treatment Medication Medication Name Sig Start Date Stop Date Notes Adipex-P 37.5 MG 1 tablet before augusto kfast Orally Once a day for 30 days 06/04/2025 Treatment Notes Assessment Notes Class 3 obesity work on diet Next Appt Details Follow Up: 4 Weeks,prnMadhavi on: Provider Name:Monique rutledge, 07/02/2025 04:15:00 PM, [address] [place], [address], Progress Notes * Kyung ROCHE LDOB:1990 (34 yo F)Acc No.[id number]:06/04/2025 Progress Note Patient: Lewis ADISKevin CHARLESdominique Piedra Provider: Cristine Razo ([facility]), PLATFORM MATERIAL HANDLING SUPERVISOR :1990 A ge:34 Y S ex:Female Date:06/04/2025 Address:[address] [place], [place] [id number] Check In:03:31 PM ESTCheck O ut:03:47 PM EST Subjective: * Chief Complaints: * 1 . 1 MO F/U. * HPI: G eneral: couldve eaten better this past month only lost few lbs wants to continue med. * ROS: G eneral/Constitutional: Fever d enies. H eadache d enies. W eight loss�couple lbs. O phthalmologic: Discharge d enies. 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), including pelvic girdle Modified On:03/30/2024/U Status:confirmed M76.822 Posterior tibial ten dinitis, left leg Modified On:03/30/2024/U Status:confirmed M24.576 Contracture, unspeci fied foot Modified [...] Once a day , Taking Dexcom G7 Equipment Sales Specialist(Continuous Glucose Equipment Sales Specialist) - Device USE DIRECTED , Taking Dexcom G7 Sensor(Continuous Glucose Sensor) - Miscellaneous as directed , Taking Escitalopram Oxalate 20 MG Tablet 1/2 tablet for the first week then 1 tablet Orally Once a day , Taking Ferrous Sulfate 325 (65 Fe) MG Tablet 1 tablet Orally Three times a Week , Taking glipiZIDE 5 MG Tablet one tablet po BID , Taking metFORMIN HCl 500 MG Tablet TAKE 1 TABLET BY MOUTH TWICE A DAY WITH A MEAL FOR 30 DAYS , Taking Natural Vitamin D-3(Cholecalciferol) 125 MCG (5000 UT) Tablet TAKE 1 TABLET BY MOUTH EVERY DAY FOR 30 DAYS , Taking Omeprazole 20 MG Capsule Delayed Release TAKE 1 CAPSULE BY MOUTH EVERY DAY , Taking OneTouch Delica Plus Mddxrd70S(Lancets) - Miscellaneous USE TO TEST BLOOD SUGAR [...] rash/hives - Allergy. Objective: * Vitals: W t:341.0lbs, Ht: 61 in, BP:122/82mm Hg, BMI:64.42Index, Ht-cm: 154.94 cm, Wt-k.68 kg. * Examination: G eneral Examinations: GENERAL APPEARANCE: a lert and oriented, in no acute distress, obese. EYES: c onjunctiva normal, sclera non-icteric. NOSE: n ormal external appearance. LUNGS: c lear to auscultation bilaterally. CARDIO: r egular rate and rhythm, S1, S2 normal. ABDOMEN: s oft, nontender. MUSCULOSKELETAL: G ait and station normal. SKIN: w arm and dry. Assessment: * Assessment: 1. C lass 3 obesity - E66.01 (Primary) Plan: * Treatment: * Preventive Medicine: Screenings/Counseling: B CT ACTION PLAN Above Normal BMI Follow-up D ietary management education, guidance, and counseling * Follow Up: 4 Weeks,prn * * Electronically signed by Cindi Razo NP, DREDGE MECHANIC.PLATFORM MATERIAL HANDLING SUPERVISOR.[id number] on 06/05/2025 at 10:55 AM EDT Sign off status: Completed Visit Status: C HK (Check Out) true * Provider: Cristine Razo ([facility]), IRENE Date: 06/04/2025 Generated for Jonnie leonard/Estella/eTransmitting on: 06/14/2025 07:45 AM EDT History and Physical Notes * HPI (History of Present Illness) Category Sub-Category Detail Notes Category Not es General couldve eaten better this past month only lost few lbs wants to continue med Examination Category Sub-Category Detail Notes Category Not es General Examinations GENERAL APPEARANCE: alert a nd oriented, in no acute distress, obese EYES: conjunctiva normal, sclera non-icteric EARS: NOSE: normal external appe arance THROAT: CARDIO: regular rate and rhy thm, S1, S2 normal LUNGS: clear to auscultatio n bilaterally ABDOMEN: soft, nontender SKIN: warm and dry BACK: MUSCULOSKELETAL: Gait and station nor mal LYMPH NODES:
--- OUTSIDE RECORDS SUMMARY | 2025-06-06 07:57 | XMS_ITS | Encounter Summary ---
Author Organization [facility] Address [address] [place] [address] Care Team Providers Care Fingerprint Clerk Name Role Phone Monique Razo CNP Primary Care Provider + Source Comments In the event this information is protected by the Federal Confidentiality of Alcohol and Drug AbusePatient Records regulations: The Federal rules restrict any use of the information to criminally investigate or prosecute any alcohol or drug abuse patient.[facility] Reason for Referral * MRI/CT (Routine) - Closed Specialty Diagnoses / Procedures Referred By Alex gamboa Referred To Contact MR IMAGING Diagnoses Chronic pain of right ankle Procedures MRI ANKLE WO IVCON RIGHT MRI ANY JT LOWER EXTREM W/O CONTRAST MATRL Melvin June DPM [address] [place] [address] Phone: tel: fax: [place] [address] Referral ID Status Reason Start Date Expiration Date V isits Requested Visits Authorized [id number] Closed Auto-Generate d Referral 05/22/2025 06/11/2025 1 1 Reason for Visit * MRI/CT (Routine) - Closed Specialty Diagnoses / Procedures Referred By Alex gamboa Referred To Contact MR IMAGING Diagnoses Chronic pain of right ankle Procedures MRI ANKLE WO IVCON RIGHT MRI ANY JT LOWER EXTREM W/O CONTRAST MATRMelvin Oden, DPM [address] [place] [address] Phone: tel: fax: [place] [address] Referral ID Status Reason Start Date Expiration Date V isits Requested Visits Authorized [id number] Closed Auto-Generate d Referral 05/22/2025 06/11/2025 1 1 Encounter Details Date Type Department Care Team (Latest Contact Info) Description 06/06/2025 7:57 AM EDT - 06/06/2025 11:59 PM EDT Hospital Encounter Radiology MRI [address] [place] [address] Chronic pain of right ankle [M25.571, G89.29] Discharge Disposition: Home Social History Tobacco Use Types Packs/Day Years Used Date Smoking Tobacco: Never Smokeless Tobacco: Never Alcohol Use Standard Drinks/Week Comments Never 0 (1 standard drink = 0.6 oz pur e alcohol) PHQ-2 Answer Date Recorded PHQ-2 score 2 06/04/2025 Area Deprivation Index Answer Date Ye rded National Score (1-100), lower number is lower ri sk 86 12/12/2024 State Score (1-10), lower number is lower risk 8 12/12/2024 Data from: https://www.neighborhoodatlas.medicine.[facility].edu/. Last address used for calculation [address] [place] [address] 12/12/2024 Comments Unknown Sex and Gender Information Value Date Recorded Sex Assigned at Not on file Legal Sex Female 12:17 PM EDT Gender Identity Not on file Sexual Orientation Not on file documented as of this encounter Medications at Time of Discharge keTORolac (TORADOL) 10 mg tablet Take 1 tablet by mouth every 6 hours as needed. with food. 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 09/20/2024 DEXCOM G7 SENSOR eduin 12/12/2024 DEXCOM G6 TRANSMITTER [place] as directed. 09/03/2024 cholecalciferol (VITAMIN D3) 5,000 unit tab Take 5,000 Units by mouth once daily. escitalopram oxalate (LEXAPRO) 20 mg tablet TAKE 1/2 TABLET BY MOUTH ONCE A DAY FOR 1 WEEK THEN 1 TABLET ONCE A DAY glipiZIDE (GLUCOTROL) 5 mg tablet 12/06/2024 metFORMIN (GLUCOPHAGE) 500 mg tablet TAKE 1 TABLET BY MOUTH TWICE A DAY WITH MEAL 08/28/2022 omeprazole (PRILOSEC) 20 mg capsule TAKE 1 CAPSULE BY MOUTH EVERY DAY for 90 04/25/2024 oxyCODONE-acetami nophen (PERCOCET) 5-325 mg tablet Take 1 tablet by mouth every 6 hours as needed. traZODone (DESYREL) 100 mg tablet TAKE 1 TABLET BY MOUTH EVERYDAY AT BEDTIME NEEDED 10/04/2024 documented as of this encounter Progress Notes * Mary Alvarez RT(R) - 06/06/2025 8:00 AM EDT Radiology Service Progress Note PATIENT NAME: Kyung Paul DATE OF SERVICE: June 06, 2025 TIME: 8:17 AM PATIENT IDENTITY VERIFICATION COMPLETED USING TWO (2) IDENTIFIERS: Name and Date of confirmedby patient verbally. FALL SCREENING: Has the patient had 2 falls in the last year or 1 fall with injury or currently using an Ambulatory Assistive Device (Walker, Cane, Wheelchair, Crutches, etc.)? No PATIENT GENDER DATA: Assigned female at . status: : No status:NO. 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 Aromatherapy Administered: No PERIPHERAL IV DATA: Not applicable SIGNED BY: RT Dami(R) June 06, 2025 8:17 AM documented in this encounter Plan of Treatment Not on file documented as of this encounter Procedures Procedure Name Priority Date/Time Associated Diagnosis Comments MRI ANKLE WO IVCON RIGHT Routine 06/06/2025 8:43 AM EDT Chronic pain of right ankle documented in this encounter Results * MRI ANKLE WO IVCON RIGHT (06/06/2025 8:43 AM EDT) Anatomical Region Laterality Modality Ankle Magnetic Resonan ce 06/06/2025 8:43 AM EDT Impressions 06/06/2025 2:16 PM EDT IMPRESSION: 1. Postoperative changes of posterior tibialis tendon reattachment with marked thickening of the distal tendon probably due to degeneration or postoperative scarring. No evidence of a complete tear. 2. Tenosynovitis at the master knot of Luis. 3. Chronic changes in the deltoid and spring ligaments as described. Road Repairer: PSCB Transcribe Date/Time: Jun 06 2025 11:37A Dictated by : RADHA TYSON MD This examination was interpreted and the report reviewed and electronically signed by: KATIANA FLORES MD on Jun 06 2025 2:13PM EST Narrative 06/06/2025 2:16 PM EDT * * *Final Report* * * DATE OF EXAM: Jun 06 2025 8:43AM [facility] 0164 - MRI ANKLE WO IVCON RT / PROCEDURE REASON: multiple diagnoses * * * * Physician Interpretation * * * * EXAMINATION / TECHNIQUE: MRI ANKLE WO IVCON RT PATIENT/TECHNOLOGIST PROVIDED HISTORY: CLINICAL INFORMATION ( PROVIDED BY ORDERING CLINICIAN) : Status post resection of accessory navicular and reattachment of the posterior tibialis tendon (12/31/2024). Continued substantial medial and lateral foot pain and ankle pain. Not improving with physical therapy. MRI for further evaluation. COMPARISON: EXAMINATION: MRI ANKLE WO IVCON RT HISTORY: Chronic pain of right ankle Chronic pain of right ankle TECHNIQUE: Routine MRI of the ankle/hindfoot without contrast COMPARISON: Foot MRI 10/16/2024, foot x-ray 03/14/2025, 02/13/2025 RESULT: TENDONS Achilles tendon: Intact Posterior tibial tendon: Postoperative changes are noted compatible with resection of accessory navicular and reattachment of the posterior tibialis tendon. Susceptibility artifact is seen in the region of the surgical bed. There is marked thickening and increased signal of the distal tendon which is ill-defined. There is also small amount of fluid in the tendon sheath distally. There is no evidence of a fluid gap or tendon retraction to suggest a complete tear. Flexor digitorum longus tendon: Intact Flexor hallucis longus tendon: Intact, moderate fluid distention of the tendon sheath at the master knot of Luis Peroneal tendons: Intact. Small os peroneum noted within the peroneus longus tendon at the cuboid tunnel. Extensor tendons: Intact LIGAMENTS Lateral: Anterior talofibular ligament: Intact Calcaneofibular ligament: Intact Posterior talofibular ligament: Intact Medial: Deltoid ligament: Intact. Intermediate signal is noted within the ligament likely due to chronic degeneration or remote injury. Spring ligament: Thickened with increased signal likely due to chronic stress changes from PTT dysfunction. Syndesmosis: Anterior-inferior tibiofibular ligament: Intact Posterior tibiofibular ligament: Small ossification at the tibial insertion likely sequela of remote trauma. BONES AND JOINTS Joints/cartilage: Preserved cartilage. Preserved talar dome. Bone Marrow: No fracture or suspicious marrow replacing lesions. Focal nonspecific edema signal in the posterior calcaneus near the subtalar joint. Joint fluid: No sizable joint effusion or synovitis. OTHER Plantar fascia: Focal thickening of the central band of the plantar fascia without edema signal likely related to chronic changes. Sinus tarsi and tarsal tunnel: Within normal limits. Other: Subcutaneous edema around the ankle joint more pronounced at the medially. No fluid collections. Localizer images: No significant additional findings. Procedure Note Provider, [facility] - 06/06/2025 * * *Final Report* * * DATE OF EXAM: Jun 06 2025 8:43AM [facility] 0164 - MRI ANKLE WO IVCON RT / PROCEDURE REASON: multiple diagnoses * * * * Physician Interpretation * * * * EXAMINATION / TECHNIQUE: MRI ANKLE WO IVCON RT PATIENT/TECHNOLOGIST PROVIDED HISTORY: CLINICAL INFORMATION ( PROVIDED BY ORDERING CLINICIAN) : Status post resection of accessory navicular and reattachment of the posterior tibialis tendon (12/31/2024). Continued substantial medial and lateral foot pain and ankle pain. Not improving with physical therapy. MRI for further evaluation. COMPARISON: EXAMINATION: MRI ANKLE WO IVCON RT HISTORY: Chronic pain of right ankle Chronic pain of right ankle TECHNIQUE: Routine MRI of the ankle/hindfoot without contrast COMPARISON: Foot MRI 10/16/2024, foot x-ray 03/14/2025, 02/13/2025 RESULT: TENDONS Achilles tendon: Intact Posterior tibial tendon: Postoperative changes are noted compatible with resection of accessory navicular and reattachment of the posterior tibialis tendon. Susceptibility artifact is seen in the region of the surgical bed. There is marked thickening and increased signal of the distal tendon which is ill-defined. There is also small amount of fluid in the tendon sheath distally. There is no evidence of a fluid gap or tendon retraction to suggest a complete tear. Flexor digitorum longus tendon: Intact Flexor hallucis longus tendon: Intact, moderate fluid distention of the tendon sheath at the master knot of Luis Peroneal tendons: Intact. Small os peroneum noted within the peroneus longus tendon at the cuboid tunnel. Extensor tendons: Intact LIGAMENTS Lateral: Anterior talofibular ligament: Intact Calcaneofibular ligament: Intact Posterior talofibular ligament: Intact Medial: Deltoid ligament: Intact. Intermediate signal is noted within the ligament likely due to chronic degeneration or remote injury. Spring ligament: Thickened with increased signal likely due to chronic stress changes from PTT dysfunction. Syndesmosis: Anterior-inferior tibiofibular ligament: Intact Posterior tibiofibular ligament: Small ossification at the tibial insertion likely sequela of remote trauma. BONES AND JOINTS Joints/cartilage: Preserved cartilage. Preserved talar dome. Bone Marrow: No fracture or suspicious marrow replacing lesions. Focal nonspecific edema signal in the posterior calcaneus near the subtalar joint. Joint fluid: No sizable joint effusion or synovitis. OTHER Plantar fascia: Focal thickening of the central band of the plantar fascia without edema signal likely related to chronic changes. Sinus tarsi and tarsal tunnel: Within normal limits. Other: Subcutaneous edema around the ankle joint more pronounced at the medially. No fluid collections. Localizer images: No significant additional findings. IMPRESSION IMPRESSION: 1. Postoperative changes of posterior tibialis tendon reattachment with marked thickening of the distal tendon probably due to degeneration or postoperative scarring. No evidence of a complete tear. 2. Tenosynovitis at the master knot of Luis. 3. Chronic changes in the deltoid and spring ligaments as described. Road Repairer: HERNÁN Transcribe Date/Time: Jun 06 2025 11:37A Dictated by : RADHA TYSON MD This examination was interpreted and the report reviewed and electronically signed by: KATIANA FLORES MD on Jun 06 2025 2:13PM EST us Melvin June DPM MRI-[facility] Final Result documented in this encounter Visit Diagnoses Diagnosis Chronic pain of right ankle documented in this encounter Care Teams Fingerprint Clerk Relationship Specialty Start Date End Date Monique Razo, IRENE [address] [place] [address] PCP - General Internal Medicine 12/17/24 documented as of this encounter
--- OUTSIDE RECORDS SUMMARY | 2025-06-11 09:45 | XMS_ITS | Encounter Summary ---
Author Organization [facility] Address [address] [place] [address] Care Team Providers Care Program Checker Name Role Phone Cindi Razoela Spencer BONILLA Primary Care Provider + Source Comments In the event this information is protected by the Federal Confidentiality of Alcohol and Drug AbusePatient Records regulations: The Federal rules restrict any use of the information to criminally investigate or prosecute any alcohol or drug abuse patient.[facility] Reason for Visit * Reason Comments Pain Encounter Details Date Type Department Care Team (Late st Contact Info) Description 06/11/2025 9:45 AM EDT [facility] Orthopaedics [address] [place] [address] Melvin June, DPM [address] [place] [address] S/P foot surgery, right (Primary Dx); Chronic pain of right ankle Social History Tobacco Use Types Packs/Day Years Used Date Smoking Tobacco: Never Smokeless Tobacco: Never Alcohol Use Standard Drinks/Week Comments Never 0 (1 standard drink = 0.6 oz pur e alcohol) PHQ-2 Answer Date Recorded PHQ-2 score 2 06/10/2025 Area Deprivation Index Answer Date Ye rded National Score (1-100), lower number is lower ri sk 86 12/12/2024 State Score (1-10), lower number is lower risk 8 12/12/2024 Data from: https://www.neighborhoodatlas.medicine.[facility]/. Last address used for calculation [address] 12/12/2024 Comments Unknown Sex and Gender Information Value Date Recorded Sex Assigned at Not on file Legal Sex Female 12:17 PM EDT Gender Identity Not on file Sexual Orientation Not on file documented as of this encounter Progress Notes * Melvin June, DPMadi - 06/11/2025 10:08 AM EDT Images from the original note were not included. PRIMARY SERVICE: [facility] 9:48 AM through 10:18 AM SUBJECTIVE: Patient is seen today for follow-up for right ankle to review the results of her right ankle MRI performed June 06, 2025. She requested a telephone or virtual visit. She is still having the right ankle pain. She has been wearing the cam walker boot. She states physical therapy did not help. Medical: PAST MEDICAL HISTORY Diagnosis Date Diabetes [...] Take 1 tablet by mouth once daily. 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 DEXCOM G7 SENSOR eduin [...] and in no apparent acute distress. Patient is 5 foot 2 and 339 pounds, BMI 62 NEUROVASCULAR: Deferred DERMATOLOGIC: Deferred ORTHO/MUSCULOSKELETAL: Deferred Right ankle MRI: 06/06/2025 2:16 PM - Radiology, [place] In Impression IMPRESSION: 1. Postoperative changes of posterior tibialis tendon reattachment with marked thickening of the distal tendon probably due to degeneration or postoperative scarring. No evidence of a complete tear. 2. Tenosynovitis at the master knot of Luis. 3. Chronic changes in the deltoid and spring ligaments as described. Cdl Dedicated Truck Driver: [facility] Transcribe Date/Time: Jun 06 2025 11:37A Dictated by : RADHA TYSON MD This examination was interpreted and the report reviewed and electronically signed by: KATIANA FLORES MD on Jun 06 2025 2:13PM EST Results-Findings * * *Final Report* * * DATE OF EXAM: Jun 06 2025 8:43AM [facility] 0164 - MRI ANKLE WO IVCON [...] collections. Localizer images: No significant additional findings. Result History MRI ANKLE WO IVCON RIGHT (Order #[id number]) on 06/06/2025 - Order Result History Report ASSESSMENT: Chronic right ankle pain due to ligamentous strain combined with flexor tendinitis and morbid obesity TREATMENT TODAY: Telephone visit Discussed results of clinical and MRI examination with the patient in detail along with treatment options. Had significant respectful conversation with patient regarding MRI results and her overall stature.Advised her BMI is 62. I do think the biggest roadblock for her to have minimal right foot and ankle pain is to see her physician to have discussion about ways to improve her BMI. Continue with the boot. SIGNATURE: Melvin June DPM DATE of SERVICE: 06/11/2025 TIME of SERVICE: 10:08 AM documented in this encounter Plan of Treatment Not on file documented as of this encounter Visit Diagnoses Diagnosis S/P foot surgery, right- Primary Chronic pain of right ankle documented in this encounter Care Teams Program Checker Relationship Specialty Start Date End Date Monique Razo, IRENE [address] [place] [address] PCP - General Internal Medicine 12/17/24 documented as of this encounter
--- OUTSIDE RECORDS SUMMARY | 2025-06-14 09:34 | XMS_ITS | Patient Health Record ---
Author Organization [facility] Address [address] [place] [address] Care Team Providers Care Miniature Set Designer Name Role Phone Grant Reinaldo Primary Care Provider [phone] Lizzette Jones Unavailable [phone] Mey Duong Unavailable [phone] Katrin Duran Unavailable [phone] Tina Carrasco Unavailable [phone] Reason For Referral No Information Encounters Encounter Location Date Provider Diagnosis [facility] [address] [place] [address] 02/28/2025 Mey Ad Acute gingivitis, plaque induced K05.00 [facility] [address] [place] [address] 08/29/2024 Mey Duong Acute gingivitis, plaque induced K05.00 ; Other dental procedure status Z98.818 ; Encounter for dental examination and cleaning with abnormal findings Z01.21 ; Dental caries on pit and fissure surface penetrating into dentin K02.52 and Disturbances in tooth eruption K00.6 [place] [address] [facility] [place] [address] 09/18/2024 Lizzette Paredes Dental caries on pit and fissure surface penetrating into dentin K02.52 Assessments Encounter Date Diagnosis (ICD Code) Assessment Notes Treatment Notes Treatment Clinical Notes Section Notes 08/29/2024 Acute gingivitis, plaque induced (ICD-10 - K05.00) 09/18/2024 Dental caries on pit and fissure surface penetrating into dentin (ICD-10 - K02.52) 02/28/2025 Acute gingivitis, plaque induced (ICD-10 - K05.00) 08/29/2024 Other dental procedure status (ICD-10 - Z98.818) 08/29/2024 Encounter for dental examination and cleaning with abnormal findings (ICD-10 - Z01.21) 08/29/2024 Dental caries on pit and fissure surface penetrating into dentin (ICD-10 - K02.52) 08/29/2024 Disturbances in tooth eruption (ICD-10 - K00.6) Plan Of Treatment Next Appt Details Provider Name:Peter Ascencio, 1 04:30:00 PM, [address], [place], [address], Provider Name:Mey Duong , 09/12/2025 03:15:00 PM, [address] [place], [address], Insurance Providers Payer Name Payer Address Payer Phone Subscriber Number Group Number Insured Name Patient Relationship to Insured Coverage Start Date Coverage End Date ANTHEM Primary [address] [place] [address] [id number] NOEL ROCHE Self - patient is the insured 3 DENTAL [employer] PPO [address] [place] [address] [id number] DELORES ROCHE Spouse - patient is the spouse of the insured 3
--- OUTSIDE RECORDS SUMMARY | 2025-06-14 09:34 | XMS_ITS | Encounter Summary ---
Author Organization [facility] Address [address] [place] [address] Care Team Providers Care Commutator Repairer Name Role Phone DanniMonique Spencer BONILLA Primary Care Provider + Source Comments In the event this information is protected by the Federal Confidentiality of Alcohol and Drug AbusePatient Records regulations: The Federal rules restrict any use of the information to criminally investigate or prosecute any alcohol or drug abuse patient.[facility] Reason for Visit * Reason Comments Appointment Encounter Details Date Type Department Care Team (Late st Contact Info) Description 06/07/2025 Telephone Orth and Rheum [facility] [address] [place] [address] Melvin June DPM [address] [place], [place] [id number] Appointment Social History Tobacco Use Types Packs/Day Years [...] is lower risk 8 12/12/2024 Data from: https://www.neighborhoodatlas.[facility]/. Last address used for calculation [address] 12/12/2024 Comments Unknown Sex and Gender Information Value Date Recorded Sex Assigned at Not on file Legal Sex Female 12:17 PM EDT Gender Identity Not on file Sexual Orientation Not on file documented as of this encounter Miscellaneous Notes * Telephone Encounter - Kelly Goodman - 06/07/2025 10:53 AM EDT Kyung is calling Melvin June DPM today with concern regarding Appointment. Pt asking if her follow up appointment on 06/11/2025 can be moved to 06/12/2025 as that day works better with her work schedule. Pt requesting a return phone call. Please advise. Patient has been identified by name and birthdate. Duration of symptoms: N/A Person calling: self Call patient at: at home [phone] (home) [phone] (cell) Was an appointment scheduled: No Closing statement: Results or non-symptom based questions: Thank you for calling [facility], your call will be returned within the next business day. Kelly Goodman documented in this encounter Plan of Treatment Not on file documented as of this encounter Visit Diagnoses Not on filedocumented in this encounter Care Teams Commutator Repairer Relationship Specialty Start Date End Date Monique Razo CNP [address] [place] [address] PCP - General Internal Medicine 12/17/24 documented as of this encounter
--- OUTSIDE RECORDS SUMMARY | 2025-06-14 09:34 | XMS_ITS | Encounter Summary ---
Author Organization [facility] Address [address] [place] [address] Care Team Providers Care Charrer Name Role Phone Danni Monique Spencer BONILLA Primary Care Provider + Source Comments In the event this information is protected by the Federal Confidentiality of Alcohol and Drug AbusePatient Records regulations: The Federal rules restrict any use of the information to criminally investigate or prosecute any alcohol or drug abuse patient.[facility] Encounter Details Date Type Department Care Team (Late st Contact Info) Description 04/01/2025 Get Medical Advice Orthopaedics [address] [place] [address] Melvin June, DPM [address] [place], [place] [phone] Pain Social History Tobacco Use Types Packs/Day Years Used Date Smoking Tobacco: Never Smokeless Tobacco: Never Alcohol Use Standard Drinks/Week Comments Never 0 (1 standard drink = 0.6 oz pur e alcohol) PHQ-2 Answer Date Recorded PHQ-2 score 1 03/11/2025 Area Deprivation Index Answer Date Ye rded National Score (1-100), lower number is lower ri sk 86 12/12/2024 State Score (1-10), lower number is lower risk 8 12/12/2024 Data from: https://www.neighborhoodatlas.medicine.[facility]/. Last address used for calculation [address] [place] [address] 12/12/2024 Comments Unknown Sex and Gender Information Value Date Recorded Sex Assigned at Not on file Legal Sex Female 12:17 PM EDT Gender Identity Not on file Sexual Orientation Not on file documented as of this encounter Plan of Treatment Not on file documented as of this encounter Visit Diagnoses Not on filedocumented in this encounter Care Teams Charrer Relationship Specialty Start Date End Date Monique Razo CNP [address] [place] [address] PCP - General Internal Medicine 12/17/24 documented as of this encounter
--- OUTSIDE RECORDS SUMMARY | 2025-06-14 09:34 | XMS_ITS | Encounter Summary ---
Author Organization [facility] Address [address] [place] [address] Care Team Providers Care Lead Pressman Name Role Phone Monique Razo MD Unavailable [phone] Unallocated, Keily Romeo MD Primary Care Provi anna Monique Razo MD Unavailable [phone] Erich Garcia MD Primary Care Provider [phone] Jaime Woods DO Unavailable [phone] Encounter Details Date Type Department Care Team (Late st Contact Info) Description 04/20/2024 Abstract [facility] [address] [facility] [address] [place] [phone] Pato Koehler, DPM 3006 [facility] 5 [place] [address] Social History Tobacco Use Types Packs/Day Years Used Date Smoking Tobacco: Never Passive Smoke Exposure: Never Smokeless Tobacco: Never Alcohol Use Standard Drinks/Week Comments Never 0 (1 standard drink = 0.6 oz pur e alcohol) Comments Unknown Sex and Gender Information Value Date Recorded Sex Assigned at Not on file Legal Sex Female 7:10 PM EDT Gender Identity Not on file Sexual Orientation Not on file documented as of this encounter Plan of Treatment Not on file documented as of this encounter Visit Diagnoses Not on filedocumented in this encounter Care Teams Lead Pressman Relationship Specialty Start Date End Date Unallocated, Noms ProviderMD [address] [place] [address] PCP - General Family Medicine 03/29/24 07/23/24 Erich Garcia MD [address] [place] [address] PCP - General Family Medicine 07/24/24 Monique Razo MD [address] [place] [address] Referring Physician Family Medicine 03/29/24 Monique Razo MD [address] [place] [address] Referring Physician Family Medicine 07/24/24 Jaime Woods DO [address] [place] [address] Otolaryngology 07/24/24 documented as of this encounter
--- OUTSIDE RECORDS SUMMARY | 2025-06-14 09:34 | XMS_ITS | Encounter Summary ---
Author Organization [facility] Address [address] [place] [address] Care Team Providers Care Lathe Spotter Name Role Phone Monique Razo MD Unavailable [phone] Unallocated, Noms Provider Primary Care Provi anna Monique Razo MD Unavailable [phone] Erich Garcia MD Primary Care Provider [phone] Jaime Woods DO Unavailable [phone] Encounter Details Date Type Department Care Team (Late st Contact Info) Description 05/21/2024 Abstract [facility] 3006 [place] [phone] Pato Koehler, DPM [address] [address] Social History Tobacco Use Types Packs/Day [...] on filedocumented in this encounter Care Teams Lathe Spotter Relationship Specialty Start Date End Date Unallocated, Noms ProviderMD 1230 [place] [address] PCP - General Family Medicine 03/29/24 07/23/24 Erich Garcia MD [address] [place] [address] PCP - General Family Medicine 07/24/24 Monique Razo MD [address] [place] [address] Referring Physician Family Medicine 03/29/24 Monique Razo MD [address] [place] [address] Referring Physician Family Medicine 07/24/24 Jaime Woods DO [address] [place] [address] Otolaryngology 07/24/24 documented as of this encounter
--- OUTSIDE RECORDS SUMMARY | 2025-06-14 09:34 | XMS_ITS | Encounter Summary ---
Author Organization [facility] Address [address] [place] [address] Care Team Providers Care Dance Master Name Role Phone Danni Monique Spencer BONILLA Primary Care Provider + Source Comments In the event this information is protected by the Federal Confidentiality of Alcohol and Drug AbusePatient Records regulations: The Federal rules restrict any use of the information to criminally investigate or prosecute any alcohol or drug abuse patient.[facility] Encounter Details Date Type Department Care Team (Late st Contact Info) Description 05/12/2025 Get Medical Advice Orthopaedics [address] [place] [address] Melvin June, DPM [address] [place], [place] [phone] Still having pain Social History Tobacco Use Types Packs/Day Years Used Date Smoking Tobacco: Never Smokeless Tobacco: Never Alcohol Use Standard Drinks/Week Comments Never 0 (1 standard drink = 0.6 oz pur e alcohol) PHQ-2 Answer Date Recorded PHQ-2 score 2 05/09/2025 Area Deprivation Index Answer Date Ye rded National Score (1-100), lower number is lower ri sk 86 12/12/2024 State Score (1-10), lower number is lower risk 8 12/12/2024 Data from: https://www.neighborhoodatlas.medicine.[facility]/. Last address used for calculation [address] 12/12/2024 Comments Unknown Sex and Gender Information Value Date Recorded Sex Assigned at Not on file Legal Sex Female 12:17 PM EDT Gender Identity Not on file Sexual Orientation Not on file documented as of this encounter Plan of Treatment Not on file documented as of this encounter Visit Diagnoses Not on filedocumented in this encounter Care Teams Dance Master Relationship Specialty Start Date End Date Monique Razo CNP [address] [place] [address] PCP - General Internal Medicine 12/17/24 documented as of this encounter
--- OUTSIDE RECORDS SUMMARY | 2025-06-14 09:34 | XMS_ITS | Encounter Summary ---
Author Organization [facility] Address [address] [place] [address] Care Team Providers Care Biology Faculty Member Name Role Phone Monique Razo MD Unavailable [phone] Unallocated, Noms Provider Primary Care Provi anna Monique Razo MD Unavailable [phone] Erich Garcia MD Primary Care Provider [phone] Jaime Woods DO Unavailable [phone] Encounter Details Date Type Department Care Team (Late st Contact Info) Description 05/16/2024 Abstract [facility] 3006 [place] [phone] Pato Koehler, DPM [address] [address] Social History Tobacco Use Types [...] on filedocumented in this encounter Care Teams Biology Faculty Member Relationship Specialty Start Date End Date Unallocated, Noms ProviderMD [address]30 [place] [address] PCP - General Family Medicine 03/29/24 07/23/24 Erich Garcia MD [address] [facility] [address] PCP - General Family Medicine 07/24/24 Monique Razo MD [address] [place] [address] Referring Physician Family Medicine 03/29/24 Monique Razo MD [address] [place] [address] Referring Physician Family Medicine 07/24/24 Jaime Woods DO [address] [place] [address] Otolaryngology 07/24/24 documented as of this encounter
--- OUTSIDE RECORDS SUMMARY | 2025-06-14 09:34 | XMS_ITS | Encounter Summary ---
Author Organization [facility] Address [address] [place] [address] Care Team Providers Care Mechanical Product Engineer Name Role Phone Monique Razo MD Unavailable [phone] Monique Razo MD Unavailable [phone] Erich Garcia MD Primary Care Provider [phone] Jaime Woods DO Unavailable [phone] Encounter Details Date Type Department Care Team ([facility] st Contact Info) Description 09/13/2024 Orders Only [facility] [address] [place] [phone] Pato Koehler, DPM [address] [address] Social History Tobacco Use Types [...] Procedure Name Priority Date/Time Associated Diagnosis Comments PATHOLOGY REPORT Routine 09/06/2024 11:25 AM EDT documented in this encounter Results * Pathology Report (09/06/2024 11:25 AM EDT) Other us Pato Koehelr DPM LAB PATHOLOGY ORDERABLES Fi nal Result documented in this encounter Visit Diagnoses Not on filedocumented in this encounter Care Teams Mechanical Product Engineer Relationship Specialty Start Date End Date Erich Garcia MD [address] [place] [phone] PCP - General Family Medicine 07/24/24 Monique Razo MD [address] [place] [address] Referring Physician Family Medicine 03/29/24 Monique Razo MD [address] [place] [address] Referring Physician Family Medicine 07/24/24 Jaime Woods DO [address] [place] [address] Otolaryngology 07/24/24 documented as of this encounter
--- OUTSIDE RECORDS SUMMARY | 2025-06-14 09:34 | XMS_ITS | Encounter Summary ---
Author Organization [facility] Address [address] [place] [address] Care Team Providers Care Lead Business Systems Analyst Name Role Phone Danni Monique Spencer BONILLA Primary Care Provider + Source Comments In the event this information is protected by the Federal Confidentiality of Alcohol and Drug AbusePatient Records regulations: The Federal rules restrict any use of the information to criminally investigate or prosecute any alcohol or drug abuse patient.[facility] Encounter Details Date Type Department Care Team (Late st Contact Info) Description 02/27/2025 Get Medical Advice Orthopaedics [address] [place] [address] Melvin June, DPM [address] [place], [place] [phone] Pain Social History Tobacco Use Types Packs/Day Years Used Date Smoking Tobacco: Never Smokeless Tobacco: Never Alcohol Use Standard Drinks/Week Comments Never 0 (1 standard drink = 0.6 oz pur e alcohol) PHQ-2 Answer Date Recorded PHQ-2 score 2 02/07/2025 Area Deprivation Index Answer Date Ye rded National Score (1-100), lower number is lower ri sk 86 12/12/2024 State Score (1-10), lower number is lower risk 8 12/12/2024 Data from: https://www.neighborhoodatlas.medicine.[facility]/. Last address used for calculation [address] [place] [address] 12/12/2024 Comments Unknown Sex and Gender Information Value Date Recorded Sex Assigned at Not on file Legal Sex Female 12:17 PM EDT Gender Identity Not on file Sexual Orientation Not on file documented as of this encounter Plan of Treatment Not on file documented as of this encounter Visit Diagnoses Not on filedocumented in this encounter Care Teams Lead Business Systems Analyst Relationship Specialty Start Date End Date Monique Razo CNP [address] [place] [address] PCP - General Internal Medicine 12/17/24 documented as of this encounter
--- OUTSIDE RECORDS SUMMARY | 2025-06-14 09:34 | XMS_ITS | Encounter Summary ---
Author Organization [facility] Address [address] [place] [address] Care Team Providers Care Photographer Scientific Name Role Phone Cindi Razoela Spencer BONILLA Primary Care Provider + Source Comments In the event this information is protected by the Federal Confidentiality of Alcohol and Drug AbusePatient Records regulations: The Federal rules restrict any use of the information to criminally investigate or prosecute any alcohol or drug abuse patient.[facility] Encounter Details Date Type Department Care Team (Late st Contact Info) Description 05/17/2025 Telephone Orthopaedics [address] [place] [address] Melvin June, DPM [address] [place], [place] [phone] Social History Tobacco Use Types Packs/Day Years [...] is lower risk 8 12/12/2024 Data from: https://www.neighborhoodatlas.[facility]/. Last address used for calculation [address] [facility] 12/12/2024 Comments Unknown Sex and Gender Information Value Date Recorded Sex Assigned at Not on file Legal Sex Female 12:17 PM EDT Gender Identity Not on file Sexual Orientation Not on file documented as of this encounter Miscellaneous Notes * Telephone Encounter - Natalia Barrios CT - 05/17/2025 12:00 PM EDT Patients boot in no longer inflating or button is broken. Her mother will be coming in this way next week. She will bring the boot to change it out. Patient lives in [place]. documented in this encounter Plan of Treatment Not on file documented as of this encounter Visit Diagnoses Not on filedocumented in this encounter Care Teams Photographer Scientific Relationship Specialty Start Date End Date Monique Razo INSURANCE POLICY CLERK [address] [place] [address] PCP - General Internal Medicine 12/17/24 documented as of this encounter
--- OUTSIDE RECORDS SUMMARY | 2025-06-14 09:34 | XMS_ITS | Encounter Summary ---
Author Organization [facility] Address [address] [place] [address] Care Team Providers Care Health Promotion Coordinator Name Role Phone Monique Razo MD Unavailable [phone] Monique Razo MD Unavailable [phone] Erich Garcia MD Primary Care Provider [phone] Jaime Woods DO Unavailable [phone] Encounter Details Date Type Department Care Team (Late st Contact Info) Description 10/28/2024 Telephone [facility] 112 [facility] 120 [place] [address] Pato Koehler DPM 3006 [facility] 5 [place] [address] Social History Tobacco Use Types Packs/Day Years [...] encounter Miscellaneous Notes * Telephone Encounter - Pato Koehler DPM - 10/28/2024 5:26 PM EST Please remove from schedule this secondary to referral to tertiary provider and please make sure that this was done by this point in time. Urgent matter documented in this encounter Plan of Treatment Not on file documented as of this encounter Visit Diagnoses Not on filedocumented in this encounter Care Teams Health Promotion Coordinator Relationship Specialty Start Date End Date Erich Garcia MD [address] [place] [address] PCP - General Family Medicine 07/24/24 Monique Razo MD [address] [place] [address] Referring Physician Family Medicine 03/29/24 Monique Razo MD [address] [place] [address] Referring Physician Family Medicine 07/24/24 Jaime Woods DO [address] [place] [address] Otolaryngology 07/24/24 documented as of this encounter
--- OUTSIDE RECORDS SUMMARY | 2025-06-14 09:34 | XMS_ITS | Encounter Summary ---
Author Organization [facility] Address [address] [place] [address] Care Team Providers Care Blockers Skiver Name Role Phone DanniMonique Spencer BONILLA Primary Care Provider + Source Comments In the event this information is protected by the Federal Confidentiality of Alcohol and Drug AbusePatient Records regulations: The Federal rules restrict any use of the information to criminally investigate or prosecute any alcohol or drug abuse patient.[facility] Encounter Details Date Type Department Care Team (Late st Contact Info) Description 05/17/2025 Get Medical Advice Orthopaedics [address] [place] [address] Melvin June, DPM [address] [place], [place] [phone] Boot Social History Tobacco Use Types Packs/Day Years [...] is lower risk 8 12/12/2024 Data from: https://www.neighborhoodatlas.medicine.[facility]/. Last address used for calculation [address] [place] [address] 12/12/2024 Comments Unknown Sex and Gender Information Value Date Recorded Sex Assigned at Not on file Legal Sex Female 12:17 PM EDT Gender Identity Not on file Sexual Orientation Not on file documented as of this encounter Plan of Treatment Not on file documented as of this encounter Visit Diagnoses Not on filedocumented in this encounter Care Teams Blockers Skiver Relationship Specialty Start Date End Date Monique Razo CNP [address] [place] [address] PCP - General Internal Medicine 12/17/24 documented as of this encounter
--- OUTSIDE RECORDS SUMMARY | 2025-06-14 09:34 | XMS_ITS | Encounter Summary ---
Author Organization [facility] Address [address] [place] [address] Care Team Providers Care Car Knocker Name Role Phone Monique Razo MD Unavailable [phone] Unallocated, Noms Provider Primary Care Provi anna Monique Razo MD Unavailable [phone] Erich Garcia MD Primary Care Provider [phone] Jaime Woods DO Unavailable [phone] Encounter Details Date Type Department Care Team (Late st Contact Info) Description 05/05/2023 Abstract [facility] 112 [facility] 120 [place] [phone] Pato Koehler, DPM 3006 [facility] 5 [place] [address] Social History Tobacco Use Types Packs/Day Years Used Date Smoking Tobacco: Never Tobacco Cessation:Counseling Given: Not Answered Alcohol Use Standard Drinks/Week Comments Never 0 [...] on filedocumented in this encounter Care Teams Car Knocker Relationship Specialty Start Date End Date Unallocated, Noms ProviderMD [address] [place] [address] PCP - General Family Medicine 03/29/24 07/23/24 Erich Garcia MD [address] [facility] [place] [address] PCP - General Family Medicine 07/24/24 Monique Razo MD [address] [place] [address] Referring Physician Family Medicine 03/29/24 Monique Razo MD [address] [place] [address] Referring Physician Family Medicine 07/24/24 Jaime Woods DO [address] [place] [address] Otolaryngology 07/24/24 documented as of this encounter
--- OUTSIDE RECORDS SUMMARY | 2025-06-14 09:34 | XMS_ITS | Encounter Summary ---
Author Organization [facility] Address [address] [place] [address] Care Team Providers Care Coater Carbon Paper Name Role Phone Monique Razo CNP Primary Care Provider + Source Comments In the event this information is protected by the Federal Confidentiality of Alcohol and Drug AbusePatient Records regulations: The Federal rules restrict any use of the information to criminally investigate or prosecute any alcohol or drug abuse patient.[facility] Encounter Details Date Type Department Care Team (Late st Contact Info) Description 12/28/2024 Patient Msg Pre Anesthesia [address] [place] [address] Ary Rocha APRN.BROACHING MACHINE SET UP OPERATOR [address] [place] [address] Pre-op Instructions Social History Tobacco Use Types Packs/Day Years Used Date Smoking Tobacco: Never Smokeless Tobacco: Never Alcohol Use Standard Drinks/Week Comments Never 0 (1 standard drink = 0.6 oz pur e alcohol) PHQ-2 Answer Date Recorded PHQ-2 score 2 12/05/2024 Area Deprivation Index Answer Date Ye rded National Score (1-100), lower number is lower ri sk 86 12/12/2024 State Score (1-10), lower number is lower risk 8 12/12/2024 Data from: https://www.neighborhoodatlas.[facility].edu/. Last address used for calculation [address] [facility] 12/12/2024 Comments Unknown Sex and Gender Information Value Date Recorded Sex Assigned at Not on file Legal Sex Female 12:17 PM EDT Gender Identity Not on file Sexual Orientation Not on file documented as of this encounter Plan of Treatment Not on file documented as of this encounter Visit Diagnoses Not on filedocumented in this encounter Care Teams Coater Carbon Paper Relationship Specialty Start Date End Date Monique Razo CNP [address] [place] [address] PCP - General Internal Medicine 12/17/24 documented as of this encounter
--- OUTSIDE RECORDS SUMMARY | 2025-06-14 09:34 | XMS_ITS | Encounter Summary ---
Author Organization [facility] Address [address] [place] [address] Care Team Providers Care Fitting Room Inspector Name Role Phone Monique Razo CNP Primary Care Provider + Source Comments In the event this information is protected by the Federal Confidentiality of Alcohol and Drug AbusePatient Records regulations: The Federal rules restrict any use of the information to criminally investigate or prosecute any alcohol or drug abuse patient.[facility] Encounter Details Date Type Department Care Team (Late st Contact Info) Description 06/05/2025 Patient Msg Radiology MRI [address] [place] [address] Provider, Cc MRI APT Social History Tobacco Use Types Packs/Day Years [...] is lower risk 8 12/12/2024 Data from: https://www.neighborhoodatlas.medicine.[facility].edu/. Last address used for calculation [address] [place] [address] 12/12/2024 Comments Unknown Sex and Gender Information Value Date Recorded Sex Assigned at Not on file Legal Sex Female 12:17 PM EDT Gender Identity Not on file Sexual Orientation Not on file documented as of this encounter Plan of Treatment Not on file documented as of this encounter Visit Diagnoses Not on filedocumented in this encounter Care Teams Fitting Room Inspector Relationship Specialty Start Date End Date Monique Razo CNP [address] [place] [address] PCP - General Internal Medicine 12/17/24 documented as of this encounter
--- OUTSIDE RECORDS SUMMARY | 2025-06-14 09:34 | XMS_ITS | Encounter Summary ---
Author Organization [facility] Address [address] [place] [address] Care Team Providers Care Sumac Tanner Name Role Phone Danni Monique Spencer BONILLA Primary Care Provider + Source Comments In the event this information is protected by the Federal Confidentiality of Alcohol and Drug AbusePatient Records regulations: The Federal rules restrict any use of the information to criminally investigate or prosecute any alcohol or drug abuse patient.[facility] Encounter Details Date Type Department Care Team (Late st Contact Info) Description 04/12/2025 Get Medical Advice Orthopaedics [address] [place] [address] Melvin June, DPM [address] [place], [place] [phone] Pain not going away Social History Tobacco Use Types Packs/Day Years Used Date Smoking Tobacco: Never Smokeless Tobacco: Never Alcohol Use Standard Drinks/Week Comments Never 0 (1 standard drink = 0.6 oz pur e alcohol) PHQ-2 Answer Date Recorded PHQ-2 score 2 04/13/2025 Area Deprivation Index Answer Date Ye rded National Score (1-100), lower number is lower ri sk 86 12/12/2024 State Score (1-10), lower number is lower risk 8 12/12/2024 Data from: https://www.neighborhoodatlas.[facility]/. Last address used for calculation [address] [facility] 12/12/2024 Comments Unknown Sex and Gender Information Value Date Recorded Sex Assigned at Not on file Legal Sex Female 12:17 PM EDT Gender Identity Not on file Sexual Orientation Not on file documented as of this encounter Plan of Treatment Not on file documented as of this encounter Visit Diagnoses Not on filedocumented in this encounter Care Teams Sumac Tanner Relationship Specialty Start Date End Date Monique Razo CNP [address] [place] [address] PCP - General Internal Medicine 12/17/24 documented as of this encounter
--- OUTSIDE RECORDS SUMMARY | 2025-06-14 09:34 | XMS_ITS | Encounter Summary ---
Author Organization [facility] Address [address] [place] [address] Care Team Providers Care Primary Therapist Name Role Phone Monique Razo CNP Primary Care Provider + Source Comments In the event this information is protected by the Federal Confidentiality of Alcohol and Drug AbusePatient Records regulations: The Federal rules restrict any use of the information to criminally investigate or prosecute any alcohol or drug abuse patient.[facility] Encounter Details Date Type Department Care Team (Late st Contact Info) Description 12/20/2024 Get Medical Advice Orthopaedics [address] [place] [address] Melvin [place], DPM [address] [place] [address] [place] Social History Tobacco Use Types Packs/Day Years Used Date Smoking Tobacco: Never Assessed PHQ-2 Answer Date Recorded PHQ-2 score 2 12/05/2024 Area Deprivation Index Answer Date Ye rded National Score (1-100), lower number is lower ri sk 86 12/12/2024 State Score (1-10), lower number is lower risk 8 12/12/2024 Data from: https://www.neighborhoodatlas.medicine.[facility].edu/. Last address used for calculation [address] [place] [address] 12/12/2024 Comments Unknown Sex and Gender Information Value Date Recorded Sex Assigned at Not on file Legal Sex Female 12:17 PM EDT Gender Identity Not on file Sexual Orientation Not on file documented as of this encounter Plan of Treatment Not on file documented as of this encounter Visit Diagnoses Not on filedocumented in this encounter Care Teams Primary Therapist Relationship Specialty Start Date End Date Monique Razo CNP [address] [place] [address] PCP - General Internal Medicine 12/17/24 documented as of this encounter
--- OUTSIDE RECORDS SUMMARY | 2025-06-14 09:34 | XMS_ITS | Encounter Summary ---
Author Organization [facility] Address [address] [place] [address] Care Team Providers Care Applied Exercise Physiologist Name Role Phone Monique Razo MD Unavailable [phone] Unallocated, Noms Provider Primary Care Provi anna Monique Razo MD Unavailable [phone] Erich Garcia MD Primary Care Provider [phone] Jaime Woods DO Unavailable [phone] Encounter Details Date Type Department Care Team (Late st Contact Info) Description 05/16/2024 External Result Encounter [facility] Unsolicited Pato Koehler, DPM [address] [address] Accessory navicular bone of foot (Primary Dx) Social History Tobacco Use Types Packs/Day Years [...] Procedure Name Priority Date/Time Associated Diagnosis Comments XR FOOT 1-2 VIEWS LEFT 05/16/2024 3:15 PM EDT documented in this encounter Results * XR foot 1 or 2 views left (05/16/2024 3:15 PM EDT) Anatomical Region Laterality Modality Lower Extremities, Foot Left Radiogra phic Imaging 05/16/2024 3:15 PM EDT Impressions 05/16/2024 3:22 PM EDT INTERVAL RESECTION OF OS NAVICULARE. NO ACUTE BONY FINDINGS. Impression dictated by: Leisa Adames M.D.05/16/2024 3:20 PM Dictation Location: [facility]10 Transcribed By: DANIELLE 05/16/24 1520 Dictated By: Leisa Adames MD 05/16/24 1515 Signed By: <Electronically signed by MD Leisa Adames in OV> 05/16/24 1520 Narrative 05/16/2024 3:22 PM EDT [facility] Main [address] [address] XRay Report Signed Patient: Kyung Paul MR#: [id number] : 1990 Acct:[id number] Age/Sex: 33 / F ADM Date: 05/16/24 Loc: [place] Room: Type: [facility] Attending Dr: Pato Koehler DPM [...] soft tissue swelling. XR/XR foot LT 2V Procedure Note Radiology, Radiologist, - 05/16/2024 [facility] Main [address] [address] XRay Report Signed Patient: Kyung Paul LMR#: [id number] : 1990Acct:[id number] Age/Sex: 33 / FADM Date: 05/16/24 Loc: [place] Room:Type: [facility] Attending Dr: Pato Koehler DPM Copies to: Pato Koehler DPM Ordering Provider: Pato Koehler DPM Date of Service: 05/16/24 XR/XR foot LT 2V: post op kidner procedure LEFT FOOT - 2 VIEWS CLINICAL DATA: Follow-up after kidner procedure and tendon anchor COMPARISON: 02/17/2019 AP and lateral views were obtained in a splint which slightly limits finebone detail. The osseous naviculare seen at the time the prior is no longer identified. No acutefractures or dislocation are identified. There our calcaneal spurs. There is no prominent softtissue swelling. XR/XR foot LT 2V IMPRESSION: INTERVAL RESECTION OF OS NAVICULARE. NO ACUTE BONY FINDINGS. Impression dictated by: Leisa Adames M.D.05/16/2024 3:20 PM Dictation Location: [facility] Transcribed By: 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, not elsewhere classified documented in this encounter Care Teams Applied Exercise Physiologist Relationship Specialty Start Date End Date Unallocated, Noms MD [address] [place] [address] PCP - General Family Medicine 03/29/24 07/23/24 Erich Garcia MD [address] [place] [address] PCP - General Family Medicine 07/24/24 Monique Razo MD [address] [place] [address] Referring Physician Family Medicine 03/29/24 Monique Razo MD [address] [place] [address] Referring Physician Family Medicine 07/24/24 Jaime Woods DO [address] [place] [address] Otolaryngology 07/24/24 documented as of this encounter
--- OUTSIDE RECORDS SUMMARY | 2025-06-14 09:34 | XMS_ITS | Encounter Summary ---
Author Organization [facility] Address [address] [place] [address] Care Team Providers Care Thermal Surfacing Machine Operator Name Role Phone Monique Razo MD Unavailable [phone] Monique Razo MD Unavailable [phone] Erich Garcia MD Primary Care Provider [phone] Jaime Woods DO Unavailable [phone] Encounter Details Date Type Department Care Team (Late st Contact Info) Description 09/05/2024 Abstract [facility] [address] [place] [id number] Pato Koehler DPM [address] [address] Social History Tobacco Use Types [...] on filedocumented in this encounter Care Teams Thermal Surfacing Machine Operator Relationship Specialty Start Date End Date Erich Garcia MD [address] [place] [address] PCP - General Family Medicine 07/24/24 Monique Razo MD [address] [place] [address] Referring Physician Family Medicine 03/29/24 Monique Razo MD [address] [place] [address] Referring Physician Family Medicine 07/24/24 Jaime Woods DO [address] [place] [address] Otolaryngology 07/24/24 documented as of this encounter
--- OUTSIDE RECORDS SUMMARY | 2025-06-14 09:34 | XMS_ITS | Encounter Summary ---
Author Organization [facility] Address [address] [place] [address] Care Team Providers Care Client Service Associate Name Role Phone Danni Monique Spencer BONILLA Primary Care Provider + Source Comments In the event this information is protected by the Federal Confidentiality of Alcohol and Drug AbusePatient Records regulations: The Federal rules restrict any use of the information to criminally investigate or prosecute any alcohol or drug abuse patient.[facility] Encounter Details Date Type Department Care Team (Late st Contact Info) Description 02/04/2025 Get Medical Advice Orthopaedics [address] [place] [address] Melvin June, DPM [address] [place], [place] [id number] Swelling Social History Tobacco Use Types Packs/Day Years [...] is lower risk 8 12/12/2024 Data from: https://www.neighborhoodatlas.medicine.[facility]/. Last address used for calculation [address] [place] [address] 12/12/2024 Comments Unknown Sex and Gender Information Value Date Recorded Sex Assigned at Not on file Legal Sex Female 12:17 PM EDT Gender Identity Not on file Sexual Orientation Not on file documented as of this encounter Plan of Treatment Not on file documented as of this encounter Visit Diagnoses Not on filedocumented in this encounter Care Teams Client Service Associate Relationship Specialty Start Date End Date Monique Razo CNP [address] [place] [address] PCP - General Internal Medicine 12/17/24 documented as of this encounter
--- OUTSIDE RECORDS SUMMARY | 2025-06-14 09:34 | XMS_ITS | Clinical Summary ---
Author Organization [facility] Address [address] [facility] [place] [address] Care Team Providers Care General Ledger Bookkeeper Name Role Phone Monique Razo MD Unavailable [phone] Monique Razo MD Unavailable [phone] Erich Garcia MD Primary Care Provider [phone] Jaime Woods DO Unavailable [phone] Allergies Active Allergy Reactions Criticality Noted Date Comments Sulfa Antibiotics Rash,Hives Low 03/29/2024 Medications cholecalciferol (Vitamin D-3) 125 MCG (5000 UT) tablet 1 (one) time each day at the same time 024 Active Lexapro 10 MG tablet 1 (one) time each day at the same time 024 Active metFORMIN (Glucophage) 500 MG tablet 1 (one) time each day at the same time 023 Active omeprazole (PriLOSEC) [address] capsule TAKE 1 CAPSULE BY MOUTH EVERY DAY for 90 Active traZODone (Desyrel) 50 MG tablet 1 (one) time each day at the same time 024 Active methylPREDNISolone (Medrol Dospak) 4 MG tabletsIndications:Cap sulitis of metatarsophalangeal (MTP) joint of right foot Follow schedule on MEDROL PACK package instructions to be used as directed 21 tablet 025 Active Active Problems Problem Noted Date Diagnosed Date Acid reflux 07/21/2024 Anxiety 07/21/2024 Diabetes mellitus without complication 4 Diabetes 07/21/2024 Vitamin D deficiency 07/21/2024 Encounters Date Type Department Care Team Description 03/21/2025 2:20 PM EDT Office Visit [facility] [address] [place] [address] [place] [address] Pato Koehler DPM Capsulitis of metatarsophalangeal (MTP) joint of right foot (Primary Dx); Type 2 diabetes mellitus without complication, 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 group home insulin use (HCC) 03/21/2025 Bamboo flowsheet [facility] [address] [facility] [address] [place] [address] Pato Koehler DPM 03/21/2025 Travel from Last 3 Months Immunizations Immunization Administration Dates Next Due DTP 04/16/1993, 9,05/11/1989,03/17/1989,0 1988 Hep B, Adolescent or Pediatric 07/19/2002 HiB, unspecified 05/18/1990 MMR 07/19/2002,10/13/1989 OPV 04/16/1993,10/13/1989,03/17/1989 ,1988 Family History Medical History Relation Name Comments Arthritis Mother Isabel Diabetes Mother Isabel Heart failure Mother Isabel Hypertension Mother Isabel Seizures Sister Tia Relation Name Status Comments Father Alive Mother Isabel Sister Tia Social History Tobacco Use Types Packs/Day Years Used Date Smoking Tobacco: Never Passive Smoke Exposure: Never Smokeless Tobacco: Never Tobacco Cessation:Counseling Given: Yes Alcohol Use Standard Drinks/Week Comments Never 0 (1 standard drink = 0.6 oz pur e alcohol) Comments Unknown Sex and Gender Information Value Date Recorded Sex Assigned at Not on file Legal Sex Female 7:10 PM EDT Gender Identity Not on file Sexual Orientation Not on file Last Filed Vital Signs Vital Sign Reading Time Taken Comments Blood Pressure 129/79 10/04/2024 2:48 PM EST Pulse 82 10/04/2024 2:48 PM EST Temperature - - Respiratory Rate 16 03/21/2025 2:16 PM EDT Oxygen Saturation - - Inhaled Oxygen Concentration - - Weight 141 kg (310 lb) 03/21/2025 2:16 PM EDT Height 157.5 cm (5' 2 ) 03/21/2025 2:16 PM EDT Body Mass Index 56.7 03/21/2025 2:16 PM EDT Plan of Treatment Not on file Insurance Care Teams General Ledger Bookkeeper Relationship Specialty Start Date End Date Erich Garcia MD [address] [place] [address] PCP - General Family Medicine 07/24/24 Monique Razo MD [address] [place] [address] Referring Physician Family Medicine 03/29/24 Monique Razo MD [address] [place] [address] Referring Physician Family Medicine 07/24/24 Jaime Woods DO [address] [place] [address] Otolaryngology 07/24/24
--- OUTSIDE RECORDS SUMMARY | 2025-06-14 09:34 | XMS_ITS | Encounter Summary ---
Author Organization [facility] [place] [facility] Address [address] [place] [address] Care Team Providers Care Eyeglass Lens Cutter Name Role Phone Danni Monique Spencer BONILLA Primary Care Provider + Source Comments In the event this information is protected by the Federal Confidentiality of Alcohol and Drug AbusePatient Records regulations: The Federal rules restrict any use of the information to criminally investigate or prosecute any alcohol or drug abuse patient.[facility] [place] [facility] Encounter Details Date Type Department Care Team (Late st Contact Info) Description 03/27/2025 Get Medical Advice Orthopaedics [address] [place] [address] Melvin June, DPM [address] [place], [place] [phone] Work release Social History Tobacco Use Types Packs/Day Years [...] lower risk 8 12/12/2024 Data from: https://www.neighborhoodatlas.medicine.[facility]/. Last address used for calculation [address] [place] [address] 12/12/2024 Comments Unknown Sex and Gender Information Value Date Recorded Sex Assigned at Not on file Legal Sex Female 12:17 PM EDT Gender Identity Not on file Sexual Orientation Not on file documented as of this encounter Plan of Treatment Not on file documented as of this encounter Visit Diagnoses Not on filedocumented in this encounter Care Teams Eyeglass Lens Cutter Relationship Specialty Start Date End Date Monique Razo CNP [address] [place] [address] PCP - General Internal Medicine 12/17/24 documented as of this encounter
--- NOTE | 2025-06-14 09:35 | XR_ITS ---
The [address] [address] Patient Name: NOEL ROCHE MRN: [id number] date: 1990 Sex: F Assigned Patient Location: [facility] Current Patient Location: [facility] Accession/Order Number: [id number] Exam Date: 06/14/2025 10:19 Report Date: 06/14/2025 10:27 At the request of: ENOCH SCOTT DPMadi Procedure: XR ankle RT min 3V RIGHT ANKLE - 3 views CLINICAL DATA: Right ankle pain. Previous surgeries in 2023 and December 2024 COMPARISON: 03/13/2007 AND MRI RIGHT FOOT 10/16/2024 Weightbearing AP, lateral and oblique views were obtained. There is no acute fracture or dislocation. There is calcification at the distal inner osseous membrane adjacent to the tibia. The talar dome is intact. Calcaneal spurs are visualized. Medial soft tissue swelling is noted. XR/XR ankle RT min 3V IMPRESSION: CHRONIC CHANGES. NO ACUTE BONY FINDINGS. Impression dictated by: Leisa Adames M.D. 06/14/2025 10:27 AM Dictation Location: [place] [address] Electronically authenticated by: [id number] Date: 06/14/2025 10:27
--- OUTSIDE RECORDS SUMMARY | 2025-06-14 09:35 | XMS_ITS | Clinical Summary ---
Author Organization [facility] Address [address] [place] [address] Care Team Providers Care Superintendent Pipelines Name Role Phone Unavailable Primary Care Provider Unavailabl e Allergies Active Allergy Reactions Criticality Noted Date Comments Sulfa (Sulfonamide Antibiotics) Hives,Rash Low 12/2023 Medications DEXCOM G7 CLINICAL APPLICATION CONSULTANT See administration instructions. 4 Active escitalopram (Lexapro) 20 mg tablet TAKE 1/2 TABLET BY MOUTH DAILY FOR 1 WEEK THEN INCREASE TO 1 TABLET ONCE A DAY 4 Active Lexapro 10 mg tablet 1 (one) time each day at the same time 4 Active meloxicam (Mobic) 15 mg tablet TAKE 1 TABLET BY MOUTH EVERY DAY FOR 20 DAYS 4 Active metFORMIN (Glucophage) 500 mg tablet TAKE 1 TABLET BY MOUTH TWICE A DAY WITH MEAL Active omeprazole (PriLOSEC) [address] capsule TAKE 1 CAPSULE BY MOUTH EVERY DAY for 90 Active oxyCODONE-acet aminophen (Percocet) 5-325 mg tablet TAKE 1 TABLET BY MOUTH EVERY 4 HOURS NEEDED FOR PAIN FOR 7 DAYS 4 Active traZODone (Desyrel) 100 mg tablet TAKE 1 TABLET BY MOUTH EVERYDAY AT BEDTIME NEEDED 4 Active Social History Tobacco Use Types Packs/Day Years Used Date Smoking Tobacco: Never Smokeless Tobacco: Never Humiliation, Afraid, Rape, and Kick questionnair e Answer Date Recorded Within the last year, have y ou been afraid of your partner or ex-partner? No 11/26/2024 Within the last year, have y ou been humiliated or emotionally abused in other ways by your partner or ex-partner? No Within the last year, have y ou been kicked, hit, slapped, or otherwise physically hurt by your partner or ex-partner? No 11/26/2024 Within the last year, have y ou been raped or forced to have any kind of sexual activity by your partner or ex-partner? No 11/26/2024 PHQ-2 Answer Date Recorded Patient Health Questionnaire-2 Score 0 11/26/2024 Comments Unknown Sex and Gender Information Value Date Recorded Sex Assigned at Female 11/26/2024 1:21 PM EST Legal Sex Female 2:56 PM EST Gender Identity Female 11/26/2024 1:21 PM EST Sexual Orientation Heterosexual or Straight 10/30 1:21 PM EST Last Filed Vital Signs Vital Sign Reading Time Taken Comments Blood Pressure - - Pulse - - Temperature - - Respiratory Rate - - Oxygen Saturation - - Inhaled Oxygen Concentration - - Weight 145 kg (320 lb) 11/26/2024 1:35 PM EST Height 157.5 cm (5' 2 ) 11/26/2024 1:35 PM EST Body Mass Index 58.53 11/26/2024 1:35 PM EST Plan of Treatment Health Maintenance Due Date Last Done Comments Diabetes: Hemoglobin A1C 1988 Diabetes: Retinopathy Screening 1998 Varicella Vaccines (1 of 2 - 13+ 2-dose series) 2001 Diabetes: Urine Protein Screening 2007 Pap Smear 2009 Adult Tetanus 2010 Cervical Cancer Screening 2018 HPV/Cotest 2018 COVID-19 Vaccine ( season) 2024 Hepatitis B Vaccines (3 of 3 - 3-dose series) 10/11/2024 08/16/2024, 07/19/2002 Influenza Vaccine (#1) 2025 Depression Screening 11/26/2025 11/26/2024 Zoster Vaccines (1 of 2) 2038 HIB Vaccines Completed 05/18/1990 IPV Vaccines Completed 04/16/1993, 09/28, 03/17/1989, Additional history exists HPV Vaccines Aged Out No longer eligi ble based on patient's age to complete this topic Meningococcal B Vaccine Aged Out No l onger eligible based on patient's age to complete this topic Meningococcal Vaccine Aged Out No chris griselda eligible based on patient's age to complete this topic Pneumococcal Vaccine: Pediatrics (0 to 5 Years) and At-Risk Patients (6 to 64 Years) Aged Out No longer eligible based on patient's age to complete this topic Rotavirus Vaccines Aged Out No longer eligible based on patient's age to complete this topic Insurance [facility] OOS
--- OUTSIDE RECORDS SUMMARY | 2025-06-14 09:35 | XMS_ITS | Patient Health Record ---
Author Organization [facility] Address [address] [place] [address] Care Team Providers Care Supervisor Treating And Pumping Name Role Phone Gaurav Snyder Unavailable [phone] shadeGloria Frazier Unavailable [phone] Allergies Allergen (clinical drug ingredient) Drug/Non Drug Allergy documented on EMR Reaction Allergy Type Onset Date Status SULFA (uncoded) hives Allergy Acti ve Results Component Value Reference Range Notes CBC with diff, BMP, EKG Reviewed date:12/04/2024 02:43:58 PM Interpretation: Performing Lab: Notes/Report: Surgery Scheduling Reviewed date:12/04/2024 02:43:39 PM Interpretation: Performing Lab: Notes/Report: Social Sec number: [id number] Primary Insurance Company: [employer] Surgeon/Assist: [place] Surgery Location: Surgery Date & Time: 11/05/24 Surgery End Time: ONE HOUR Procedure: RIGHT SHOULDER ARTHR OSCOPIC DISTAL CLAVICLE EXCISION, POSSIBLE OPEN, Diagnosis: RIGHT AC JOINT ARTHRITIS Admission Type: OUTPATIENT Anesthesia Type/CPNB: GENERAL Post-op Appointment Date: 1 WEEK Latex Allergy NO Lab Location: Motor Vehicle Technician: [facility] Hem[facility] Reviewed date:12/04/2024 02:43:30 PM Interpretation: Performing Lab: Notes/Report: Chem 8, Venous Reviewed date:12/04/2024 02:43:47 PM Interpretation: Performing Lab: Notes/Report: SCC- PT/OT EVAL AND TREAT 3X /WEEK FOR 6 WEEKS Reviewed date:12/04/2024 03:27:33 PM Interpretation: Performing Lab: Notes/Report: HGB A1C Reviewed date:02/07/2025 11:57:30 AM Interpretation: Performing Lab: Notes/Report: Hgb A1c 6.6 Reason For Referral Reason APPROVED ........... .....PLEASE OBTAIN AUTHORIZATION FOR RIGHT SHOULDER ARTHROSCOPIC DISTAL CLAVICLE EXCISION, POSSIBLE OPEN Jose Martin 10/15/2024 11:33:47 AM >C[place] [address] [place] [address] Diagnosis 1 Arthritis of right a cromioclavicular joint (M19.011) Referral Organization [facility] Referring Provider First Name Gaurav Referring Provider Last Name Lillian Referring Provider Speciality Orthopedic Surgery Referred Organization [facility] Referred Address [address], [place],[address], General Notes Vilma Meléndez 024 11:19:13 AM >NEED SX CODE PLEASEMario Chad 10/15/2024 11:33:47 AM >Cpt [place] [address] [place] [address], Vilma Meléndez 10/18/2024 11:53:48 AM >APPROVED PER [employer] AUTH #[id number] VALID 10/18/2024-01/18/2025 COPY IN CHART MA NOTIFIED REF FAXED TO [facility] Priority Routine Medications Medication SIG (Take, Route, Fr equency, Duration) Notes Start Date End Date Status celecoxib 200 mg 1 cap(s) orally once a day for 30 days 01/28/2025 Active Social History Tobacco Use: Social History Observation Description Date Details (start date - stop date) Never Smoker NA - NA AUDIT-C (Standard) Question Answer Notes Did you have a drink containing alcohol in the p ast year? No Points 0 Interpretation Negative Tobacco Control (Standard) Question Answer Notes Tobacco use: Nonsmoker Problems Problem Type SNOMED Code ICD Code Onset Dates Problem Status W/U Status Risk Notes Problem [id number] Primary osteoarthritis of right shoulder (M19.011) Active confirmed Problem 455437791 Encounter for other orthopedic aftercare (Z47.89) Active confirmed Vital Signs Height 5'1 in 03/18/2025 Weight 325 lbs 03/18/2025 BMI 61.4 03/18/2025 Encounters Encounter Location Date Provider Diagnosis [facility] [address] [place] [address] [place] [address] 07/09/2024 Gaurav Snyder Primary osteoarthrit is of right shoulder M19.011 [facility] [address] [facility] [place] [address] 08/20/2024 Gaurav Snyder Primary osteoarthrit is of right shoulder M19.011 and Weakness of right shoulder R29.898 [facility] [facility] [address] [facility] [facility] [place] [address] 09/17/2024 Gaurav Snyder Primary osteoarthrit is of right shoulder M19.011 [facility] [address] [facility] [place] [address] [place] [address] 10/15/2024 Gaurav Snyder Arthritis of right acromioclavicular joint M19.011 [facility] [address] [place] [address] 11/05/2024 Gaurav Snyder Arthritis of right acromioclavicular joint M19.011 [facility] [address] [facility] [place] [address] 11/12/2024 Gaurav Snyder Encounter for other orthopedic aftercare Z47.89 [facility] [address] [facility] [place] [address] [place] [address] 12/17/2024 [facility] Arthritis of right acromioclavicular joint M19.011 [facility] [address] [facility] [place] [address] 01/28/2025 [facility] Encounter for other orthopedic aftercare Z47.89 [facility] [facility] [address] [facility] [place] [address] 02/11/2025 [facility] Primary osteoarthritis of right shoulder M19.011 [facility] [facility] [address] [facility] [place] [address] 03/18/2025 [facility] Arthritis of right acromioclavicular joint M19.011 [facility] [address] [facility] [place] [address] 07/16/2024 Gaurav Snyder [facility] [address] [facility] [place] [address] 02/04/2025 [facility] Assessments Encounter Date Diagnosis (ICD Code) Assessment Notes Treatment Notes Treatment Clinical Notes Section Notes 07/09/2024 Primary osteoarthritis of right shoulder (ICD-10 - M19.011) 08/20/2024 Primary osteoarthritis of right shoulder (ICD-10 - M19.011) 08/20/2024 Weakness of right shoulder (ICD-10 - R29.898) 09/17/2024 Primary osteoarthritis of right shoulder (ICD-10 - M19.011) 10/15/2024 Arthritis of right acromioclavicular joint (ICD-10 - M19.011) 11/05/2024 Arthritis of right acromioclavicular joint (ICD-10 - M19.011) 11/12/2024 Encounter for other orthopedic aftercare (ICD-10 - Z47.89) 12/17/2024 Arthritis of right acromioclavicular joint (ICD-10 - M19.011) 01/28/2025 Encounter for other orthopedic aftercare (ICD-10 - Z47.89) 02/11/2025 Primary osteoarthritis of right shoulder (ICD-10 - M19.011) 03/18/2025 Arthritis of right acromioclavicular joint (ICD-10 - M19.011) Right rotator cuff tendinitis /bursitis 4+ months status post right distal clavicle excision 07/09/2024 Other For her right A C joint arthritis she is interested in proceeding with a corticosteroid injection. 08/20/2024 Other For right shoulder AC joint arthritis I recommended Toradol. She has taken this previously. Follow-up in 6 weeks to reassess her progress. If symptoms not discussed repeating a corticosteroid injection. He follows Import medication 09/17/2024 Other For her right A C joint pain we have discussed treatment options. She is interested in repeating a corticosteroid injection. 10/15/2024 Other For her right shoulder AC joint arthritis that is failed extensive conservative treatment she would like to proceed with right shoulder arthroscopic distal clavicle excision. We have discussed the possible need for this to be an open procedure. I discussed risks of surgery as being a 30 to 40% chance of persistent postoperative pain with no improvement in symptoms. We have gone through additional risks and the informed consent process which she understands and has elected to proceed with. Import medication 11/12/2024 Other Patient is doing well after distal clavicle excision. I reviewed exercises with her to start working on range of motion. She will start therapy in 3 weeks. She will slowly wean out of the sling. She will follow-up in 4 weeks to reassess her progress. She will come in next week for a suture removal and Steri-Strip placement. Import medication 12/17/2024 Other Patient continu es to improve postoperatively and will continue with physical therapy. She does work at [employer] and has to lift sometimes 50 pounds, we will revisit her return to work readiness at her next appointment. We discussed continuing to limit push/pull/lift activities as tolerated. We will see her back in 6 weeks to reassess her progress. 01/28/2025 Other The patient is having some increased pain today that may be from relying more on her arm after having an accessory navicular removal from her right ankle that she is nonweightbearing on today. I will have her take a break from physical therapy and have placed her on Celebrex. Medication precautions reviewed. She states she did get fired from [employer] so is currently unemployed. We will see her back in 6 weeks for reevaluation. 02/11/2025 Other Today we discus sed risk/benefits of subacromial corticosteroid injection. Patient's A1c is 6.6. Patient wished to proceed and I did provide this for her today. We will see her back at her regularly scheduled follow-up appointment. 03/18/2025 Other Patient is doin g well after subacromial injection. We discussed activity modification as needed. I am going to give her a note to work without restrictions. We will see her back on a as needed basis. Right rotator cuff tendinitis /bursitis 4+ months status post right distal clavicle excision Plan Of Treatment Pending Test Test Name Order Date H A1C 04/16/2024 Insurance Providers Payer Name Payer Address Payer Phone Subscriber Number Group Number Insured Name Patient Relationship to Insured Coverage Start Date Coverage End Date [facility] [facility] [address] [place] [address] [id number] DELORES ROCHE Spouse - patient is the spouse of the insured Medications Administered Medication Instructions Date of Administration Dosage Notes BUPIVACAINE 07/09/2024 1 mL BUPIVACAINE 09/17/2024 1 mL BUPIVACAINE 02/11/2025 2 mL Depo-Medrol 07/09/2024 1 mL Depo-Medrol 09/17/2024 1 mL Depo-Medrol 02/11/2025 1 mL lidocaine 07/09/2024 1 mL lidocaine 09/17/2024 1 mL lidocaine 02/11/2025 2 mL Medical (General) History Surgical History Surgery Date(Month/Year) Arthroscopic right shoulder distal clavi david excision 11/05/2024
--- OUTSIDE RECORDS SUMMARY | 2025-06-14 09:35 | XMS_ITS | Patient Health Record ---
Author Organization [facility] in [place] Address [address] [place] [address] Care Team Providers Care Communication Professor Name Role Phone Monique Emmanuel Primary Care Provider [phone] Mo Garcia Unavailable [phone] Allergies Allergen (clinical drug ingredient) Drug/Non Drug Allergy documented on EMR Reaction Allergy Type Onset Date Status Substance with sulfonamide structure and antibacterial mechanism of action (substance) Sulfa Antibiotics rash/hives Drug Allergy Active Results Component Value Reference Range Notes GLYCOHEMOGLOBIN A1C Reviewed date:10/15/2024 09:36:10 AM Interpretation: Performing Lab: Notes/Report: [facility] , Glycohemoglobin A1C 6.6 4.5-6.2 % ADA RECOMMENDED LIMIT 4.0 - 6.0 ADA THERAPEUTIC TARGET < 7.0 ACTION SUGGESTED > 7.0 Estimated Average Glucose 143 Performing Lab: see note ML - [facility] LB GLYCOHEMOGLOBIN A1C Reviewed date:02/11/2025 04:35:45 PM Interpretation: Performing Lab: Notes/Report: [facility] , Glycohemoglobin A1C 6.9 4.5-6.2 % ADA RECOMMENDED LIMIT 4.0 - 6.0 ADA THERAPEUTIC TARGET < 7.0 ACTION SUGGESTED > 7.0 Estimated Average Glucose 151 Performing Lab: see note ML - [facility] LB IRON Reviewed date:02/11/2025 04:35:45 PM Interpretation: Performing Lab: Notes/Report: [facility] , Iron 39.0 50.0-170.0 ug/dL Performing Lab: see note ML - [facility] LB PROF CHEM 8 (BAS METB) Reviewed date:08/17/2024 08:31:31 AM Interpretation: Performing Lab: Notes/Report: [facility] , Sodium 140 136-145 mmol/L Potassium 3.7 3.5-5.1 mmol/L Chloride 103 98-107 mmol/L Carbon Dioxide 30.1 21.0-32.0 mmol/L Anion Gap 10.6 Glucose 108 74-106 mg/dL Blood Urea Nitrogen 16.0 7.0-18.0 mg/dL Creatinine 0.71 0.55-1.02 mg/dL Estimated GFR ( Rasheeda >60 >=60 Estimated GFR (Non- Yamel >60 >=60 BUN Creatinine Ratio 22.5 Calcium 9.3 8.5-10.1 mg/dL Performing Lab: see note [facility] PROF CHEM 8 (BAS METB) Reviewed date:10/29/2024 12:06:57 PM Interpretation: Performing Lab: Notes/Report: [facility] , Sodium 139 136-145 mmol/L Potassium 4.0 3.5-5.1 mmol/L Chloride 104 98-107 mmol/L Carbon Dioxide 27.1 21.0-32.0 mmol/L Anion Gap 11.9 Glucose 188 74-106 mg/dL Blood Urea Nitrogen 15.0 7.0-18.0 mg/dL Creatinine 0.94 0.55-1.02 mg/dL Estimated GFR ( Rasheeda >60 >=60 mL/min/1.73m 2 Estimated GFR (Non- Yamel >60 >=60 mL/min/1.73m 2 BUN Creatinine Ratio 16.0 Calcium 9.1 8.5-10.1 mg/dL Performing Lab: see note - [facility] LB White Blood Cells Reviewed date:11/09/2024 03:15:37 PM Interpretation: Performing Lab: Notes/Report: [facility] , White Blood Cells See Below For Report White Blood Cells White Blood Cells Many White Blood Cells Performing Lab: see note LC - [facility] LB Epithelial Cells Reviewed date:11/09/2024 03:15:37 PM Interpretation: Performing Lab: Notes/Report: [facility] , Epithelial Cells See Below For Report Epithelial Cells Few Performing Lab: see note LC - [facility] LB Result 1 Reviewed date:11/09/2024 03:15:37 PM Interpretation: Performing Lab: Notes/Report: [facility] , Result 1 See Below For Report Result 1 Many gram positive cocci. Performing Lab: see note LC - [facility] LB Result 2 Reviewed date:11/09/2024 03:15:38 PM Interpretation: Performing Lab: Notes/Report: [facility] , Result 2 See Below For Report Result 2 Few gram positive rods. Performing Lab: see note LC - [facility] LB Result 3 Reviewed date:11/09/2024 03:15:38 PM Interpretation: Performing Lab: Notes/Report: [facility] , Result 3 See Below For Report Result 3 Few gram negative rods. Performing Lab: see note LC - [facility] LB Result 4 Reviewed date:11/09/2024 03:15:38 PM Interpretation: Performing Lab: Notes/Report: [facility] , Result 4 See Below For Report Result 4 RADIOTELEGRAPHER Performing Lab: see note LC - [facility] LB Gram Stain Evaluation Reviewed date:11/09/2024 03:15:38 PM Interpretation: Performing Lab: Notes/Report: [facility] , Gram Stain Evaluation See Below For Report Gram Stain Evaluation This specimen is of good quality and is acceptable for routine Gram Stain Evaluation bacterial culture. Gram Stain Evaluation This specimen is of good quality and is acceptable for routine Performing Lab: see note LC - [facility] LB Lower Respiratory Culture Reviewed date:11/09/2024 03:15:38 PM Interpretation: Performing Lab: Notes/Report: [facility] , Lower Respiratory Culture See Below For Report Lower Respiratory Culture WILL FOLLOW Lower Respiratory Culture Routine respiratory scot Lower Respiratory Culture WILL FOLLOW Lower Respiratory Culture Performed at: [facility] Lower Respiratory Culture WILL FOLLOW Lower Respiratory Culture [address] [place], [place] [id number] Lower Respiratory Culture WILL FOLLOW Lower Respiratory Culture Nephrologist: Kevin Fuller PhD, Phone: [phone] Lower Respiratory Culture WILL FOLLOW Performing Lab: see note LC - [facility] LB SEE REPORT - [employer] Id information not found for OBX-specific vp business development legend SARS-CoV-2 Ag* Reviewed date:11/19/2024 08:28:29 AM Interpretation: Performing Lab: Notes/Report: [facility] , SARS-CoV-2 Ag NEGATIVE NEGATIVE This test has not been FDA cleared or approved, but has been authorized by the FDA under an Emergency Use Authorization (EUA) for use by authorized laboratories certified under CLIA that meet the requirements to perform moderate or high complexity testing. This test has been authorized only for the detection of proteins from SARS-CoV-2, not for any other viruses or pathogens. The emergency use of this test is authorized for the duration of the declaration that circumstances exist justifying the authorization of emergency use of in vitro diagnostic tests for detection and/or diagnosis of Covid-19 under section 564(b)(1) of the Act, 21 U.S.C. 360bbb-3(b)(1), unless the declaration is terminated or authorization is revoked sooner. Performing Lab: see note ML - [facility] LB CBC AUTO DIFF Reviewed date:11/26/2024 08:31:42 AM Interpretation: Performing Lab: Notes/Report: [facility] , White Blood Count 9.0 4.0-11.0 10 3/uL Red Blood Count 4.68 4.20-5.40 10 6/uL Hemoglobin 11.8 12.0-16.0 g/dL Hematocrit 38.8 36.0-48.0 % Mean Corpuscular Volume 82.9 81.0-99.0 fL Mean Corpuscular Hemoglobin 25.2 26.7-34.0 pg Mean Corpuscular HGB Conc 30.4 29.9-35.2 g/dL Red Cell Distribution Width 15.1 11.0-15.0 % Platelet Count 314 150-450 10 3/uL Mean Platelet Volume 9.6 9.5-13.5 fL Neutrophils Percent Auto 62.6 43.0-75.0 % Lymphocytes Percent Auto 27.2 20.5-60.0 % Monocytes Percent Auto 5.7 1.7-12.0 % Eosinophils Percent Auto 3.2 0.9-7.0 % Basophils Percent Auto 0.4 0.2-2.0 % Immature Granulocytes Pct Auto 0.9 0.0-0.5 % Neutrophils Absolute Auto 5.6 1.4-6.5 10 3/uL Lymphocytes Absolute Auto 2.5 1.2-3.8 10 3/uL Monocytes Absolute Auto 0.5 0.3-0.8 10 3/uL Eosinophils Absolute Auto 0.3 0.0-0.7 10 3/uL Basophils Absolute Auto 0.0 0.0-0.1 10 3/uL Immature Granulocytes Abs Auto 0.08 0.00-0.03 10 3/uL Performing Lab: see note - [facility] LB PROF 14(COMP METB) Reviewed date:11/26/2024 08:31:42 AM Interpretation: Performing Lab: Notes/Report: [facility] , Sodium 139 136-145 mmol/L Potassium 4.2 3.5-5.1 mmol/L Chloride 104 98-107 mmol/L Carbon Dioxide 27.8 21.0-32.0 mmol/L Anion Gap 11.4 Glucose 131 74-106 mg/dL Blood Urea Nitrogen 16.0 7.0-18.0 mg/dL Creatinine 0.79 0.55-1.02 mg/dL Estimated GFR ( Rasheeda >60 >=60 mL/min/1.73m 2 Estimated GFR (Non- Yamel >60 >=60 mL/min/1.73m 2 BUN Creatinine Ratio 20.3 Calcium 8.9 8.5-10.1 mg/dL Bilirubin Total 0.5 0.2-1.0 mg/dL Aspartate Amino Transferase 36 15-37 U/L Alanine Aminotransferase 51 14-59 U/L Alkaline Phosphatase 56 46-116 U/L Total Protein 7.0 6.4-8.2 g/dL Albumin Level 2.9 3.4-5.0 g/dL Globulin 4.1 Albumin Globulin Ratio 0.7 Performing Lab: see note - [facility] CT soft tissue neck w con Reviewed date:11/26/2024 08:24:16 AM Interpretation: Performing Lab: Notes/Report: Source Facility: [place] [address] CT Scan Report Signed Patient: NOEL PAUL MR#: [id number] : 1990 Acct:[id number] Age/Sex: 34 / F ADM Date: 11/20/24 Loc: ER Attending Dr: Ordering Physician: Mickie Quijano D.O. Date of Service: 11/20/24 Procedure(s): CT soft tissue neck w con Accession Number(s): [id number] cc: MONIQUE EMMANUEL [place] [address] Patient Name: NOEL PAUL MRN: [id number] date: 1990 Sex: F Assigned Patient Location: ER Current Patient Location: ER Accession/Order Number: [id number] Exam Date: 11/20/2024 21:30 Report Date: 11/20/2024 23:30 At the request of: MICKEI QUIJANO Procedure: CT soft tissue neck w con EXAMINATION: CT Soft Tissue Neck with IV Contrast TECHNIQUE: Axial CT imaging of the neck was performed following the intravenous injection of contrast material according to the standard protocol. Sagittal and coronal 2-D reformats were made from source images. CONTRAST: The amount and type of contrast are recorded int he medical record. QPP DOCUMENTATION: At least one of the following dose reduction techniques was utilized: Iterative reconstruction, and/or Automatic Exposure Control, and/or mA/kV adjustment based on body size. INDICATION: . R jaw swelling COMPARISON: CT facial bones, 11/17/[address] neck, 08/09/2020 FINDINGS: Pharynx/Larynx: The palatine tonsils are mildly enlarged. Otherwise, the nasopharynx, oropharynx, hypopharynx, and larynx are unremarkable. The trachea and visualized esophagus are unremarkable. No retropharyngeal fluid collections. Normal appearance of the epiglottis. No tonsillar/peritonsillar abscesses. Oral Cavity: The visualized portions of the oral tongue and floor of mouth are unremarkable. Lymph Nodes: There is a mildly enlarged right level 1B lymph node which was also present on the prior exam. Vascular: The vascular structures of the neck are unremarkable. Thyroid: The thyroid gland is unremarkable. Parotid and Submandibular Glands: Symmetric appearance of the submandibular and parotid glands. There has been an interval decrease in edema throughout the right parotid gland since prior examination. There is persistent induration of the fat along the lateral aspect of the right submandibular gland which was also present on the prior exam. No sialolithiasis. Osseous Structures: Unremarkable. Orbits and Paranasal Sinuses: The visualized orbits and paranasal sinuses are unremarkable. Intracranial: The visualized intracranial structures are unremarkable. Lung Apices: The visualized lung apices are clear. CT/CT soft tissue neck w con IMPRESSION: 1. There is mild induration of the fat along the lateral aspect of the right submandibular gland which was also present on prior study. There is also mildly enlarged right level 1B lymph node in this region. This is nonspecific. There has been an interval decrease in edema throughout the right parotid gland since examination dated 11/17/2024. No discrete fluid collections to suggest abscess formation. Electronically authenticated by: PIPO GONZALEZ Date: 11/20/2024 23:30 Dictated By: Pipo Gonzalez M.D. Signed By: 11/20/242331 DD/ 29 TD/TT: Underwater Trapper: [place] [address] CT Scan Report Signed Patient: NOEL PAUL MR#: [id number] : 1990 Acct:[id number] Age/Sex: 34 / F ADM Date: 11/20/24 Loc: ER Attending Dr: Ordering Physician: Mickie Quijano D.O. Date of Service: 11/20/24 Procedure(s): CT sof t tissue neck w con Accession Number(s): [id number] cc: MONIQUE EMMANUEL [address] [address] Patient Name: NOEL PAUL MRN: [id number] date: 1990 Sex: F Assigned Patient Location: ER Current Patient Loca tion: ER Accession/Order Numb er: [id number] Exam Date: 21:30 Report Date: 11/20/2024 23:30 At the request of: MICKIE QUIJANO Procedure: CT soft t issue neck w con EXAMINATION: CT Soft Tissue Neck with IV Contrast TECHNIQUE: Axial CT imaging of the neck was performed following the intravenous injection of contras t material according to the standard protocol. Sagittal and coronal 2-D reformat s were made from source images. CONTRAST: The amount and type of contrast are recorded int he medical record. QPP DOCUMENTATION: A t least one of the following dose reduction techniques was utilized: Iterative reconstruction, and/or Automatic Exposure Control, and/or mA/kV adjustment bas ed on body size. INDICATION: . R jaw swelling COMPARISON: CT facia l bones, 11/17/[address] neck, 08/09/2020 FINDINGS: Pharynx/Larynx: The palatine tonsils are mildly enlarged. Otherwise, the nasopharynx, orophar ynx, hypopharynx, and larynx are unremarkable. The trachea and visualized esoph leland are unremarkable. No retropharyngeal fluid collections. Normal appearance of the epiglottis. No tonsillar/peritonsillar abscesses. Oral Cavity: The visualized portions of the oral tongue and floor of mouth are unremarkable. Lymph Nodes: There i s a mildly enlarged right level 1B lymph node which was also present on the prior exam. Vascular: The vascul ar structures of the neck are unremarkable. Thyroid: The thyroid gland is unremarkable. Parotid and Submandi bular Glands: Symmetric appearance of the submandibular and parotid glands. Ther e has been an interval decrease in edema throughout the right parotid gland since prior examination. There is persistent induration of the fat along the la teral aspect of the right submandibular gland which was also present on the prior exam. No sialolithiasis. Osseous Structures: Unremarkable. Orbits and Paranasal Sinuses: The visualized orbits and paranasal sinuses are unremarkable. Intracranial: The visualized intracranial structures are unremarkable. Lung Apices: The visualized lung apices are clear. C T/CT soft tissue neck w con IMPRESSION: 1. There is mild induration of the fat along the lateral aspect of the right submandibular gland which was also present on prior study. There is also mildly enlarged right level 1B lymph node in this region. This is nonspecific. There has been an interval decrease in edema throughout the right parotid gland since examination dated 11/17/2024. No discrete fluid collections to suggest abscess formation. Electronically authenticated by: PIPO GONZALEZ Date: 11/20/2024 23:30 Dictated By: Rogers Gonzalez M.D. Signed By: 11/20/24 908 DD/ 29 TD/TT: Underwater Trapper: CT facial bones w con Reviewed date:11/19/2024 08:28:29 AM Interpretation: Performing Lab: Notes/Report: Source Facility: [place] [address] CT Scan Report Signed Patient: NOEL PAUL MR#: [id number] : 1990 Acct:[id number] Age/Sex: 34 / F ADM Date: 11/17/24 Loc: ER Attending Dr: Ordering Physician: Vilma Goncalves Date of Service: 11/17/24 Procedure(s): CT facial bones w con Accession Number(s): [id number] cc: MONIQUE EMMANUEL [place] [address] Patient Name: NOEL PAUL MRN: [id number] date: 1990 Sex: F Assigned Patient Location: ER Current Patient Location: ER Accession/Order Number: [id number] Exam Date: 11/17/2024 16:00 Report Date: 11/17/2024 16:54 At the request of: VILMA GONCALVES Procedure: CT facial bones w con EXAM: CT facial bones w con HISTORY: right maxillary swelling COMPARISON: CT neck with contrast 08/09/2020. TECHNIQUE: CT facial bones with contrast. Axial scans with reformatted coronal and sagittal images. Individualized radiation dose reduction used for this exam. Contrast: 100 mL Omnipaque 200 Findings FINDINGS: Right facial inflammation stranding seen in the subcutaneous tissues near the right parotid gland. The gland itself is incompletely visualized on this study, correlate for parotiditis. I do not see inflammation elsewhere. Mildly prominent right neck lymph nodes felt to be reactive. These findings are new from the previous neck CT. Dental hardware artifact seen without significant dental disease. There is no inflammation seen around the maxillary mandible. Tonsillar soft tissues mildly prominent felt to be unchanged. No airway encroachment. Submandibular glands are partially imaged without definite abnormality. No vascular abnormality. Visualized cervical spine, brain, external auditory canals unremarkable. Sinus thickening left sphenoid and ethmoid. Visualized mastoid middle ear cavities clear. No suspicious bone lesion or fracture or destruction. CT/CT facial bones w con IMPRESSION: Right facial inflammation partially imaged question whether this is related to parotiditis/parotid gland. The gland itself is incompletely visualized. Correlate clinically. Prominent right neck lymph nodes likely reactive. Other incidental findings as noted above. Sinus thickening/retained secretions noted ethmoid and left sphenoid sinus. Electronically authenticated by: CRISTIAN SAHA Date: 11/17/2024 16:54 Dictated By: Cristian Saha M.D. Signed By: 11/17/241656 DD/ 53 TD/TT: Underwater Trapper: [address] [address] [address] Scan Report Signed Patient: NOEL PAUL MR#: [id number] : 1990 Acct:[id number] Age/Sex: 34 / F ADM Date: 11/17/24 Loc: ER Attending Dr: Ordering Physician: Vilma Goncalves Date of Service: 11/17/24 Procedure(s): CT fac ial bones w con Accession Number(s): [id number] cc: MONIQUE EMMANUEL [address] [address] Patient Name: NOEL PAUL MRN: [id number] date: 1990 Sex: F Assigned Patient Location: ER Current Patient Loca tion: ER Accession/Order Numb er: [id number] Exam Date: 16:00 Report Date: 11/17/2024 16:54 At the request of: VILMA GONCALVES Procedure: CT facial bones w con EXAM: CT facial bone s w con HISTORY: right maxil beverly swelling COMPARISON: CT neck with contrast 08/09/2020. TECHNIQUE: CT facial bones with contrast. Axial scans with reformatted coronal and sagittal images. Individualized radiation dose reduction used for this exam. Contrast: 100 mL Omnipaque 200 Findings FINDINGS: Right faci al inflammation stranding seen in the subcutaneous tissues near the right parot id gland. The gland itself is incompletely visualized on this study, correlat e for parotiditis. I do not see inflammation elsewhere. Mildly prominent rig ht neck lymph nodes felt to be reactive. These findings are new from the pre vious neck CT. Dental hardware kaveh fact seen without significant dental disease. There is no inflammation seen ar ound the maxillary mandible. Tonsillar soft tissues mildly prominent felt to be unchanged. No airway encroachment. Submandibular glands are partially imaged without definite abnormality. No vascular abnormality. Visualized cervical spine, brain, external auditory canals unremarkable. Sinus thickening left sphe noid and ethmoid. Visualized mastoid middle ear cavities clear. No suspicious bone lesion or fracture or destruction. C T/CT facial bones w con IMPRESSION: Right facial inflamm ation partially imaged question whether this is related to parotiditis/parotid gland. The gland itself is incompletely visualized. Correlate clinically. Prominent right neck lymph nodes likely reactive. Other incidental fin dings as noted above. Sinus thickening/retained secretions noted ethmoid and le ft sphenoid sinus. Electronically authenticated by: CRISTIAN SAHA Date: 11/17/2024 16:54 Dictated By: Cristian Saha M.D. Signed By: 11/17/241656 DD/ 53 TD/TT: Underwater Trapper: PROF Banerjee(COMP METB) Reviewed date:11/19/2024 08:28:29 AM Interpretation: Performing Lab: Notes/Report: [facility] , Sodium 144 136-145 mmol/L Potassium 4.0 3.5-5.1 mmol/L Chloride 105 98-107 mmol/L Carbon Dioxide 30.4 21.0-32.0 mmol/L Anion Gap 12.6 Glucose 116 74-106 mg/dL Blood Urea Nitrogen 12.0 7.0-18.0 mg/dL Creatinine 0.91 0.55-1.02 mg/dL Estimated GFR ( Rasheeda >60 >=60 mL/min/1.73m 2 Estimated GFR (Non- Yamel >60 >=60 mL/min/1.73m 2 BUN Creatinine Ratio 13.2 Calcium 8.9 8.5-10.1 mg/dL Bilirubin Total 0.4 0.2-1.0 mg/dL Aspartate Amino Transferase 25 15-37 U/L Alanine Aminotransferase 39 14-59 U/L Alkaline Phosphatase 58 46-116 U/L Total Protein 7.3 6.4-8.2 g/dL Albumin Level 3.1 3.4-5.0 g/dL Globulin 4.2 Albumin Globulin Ratio 0.7 Performing Lab: see note ML - [facility] LB CBC AUTO DIFF Reviewed date:11/19/2024 08:28:29 AM Interpretation: Performing Lab: Notes/Report: [facility] , White Blood Count 6.0 4.0-11.0 10 3/uL Red Blood Count 4.65 4.20-5.40 10 6/uL Hemoglobin 11.7 12.0-16.0 g/dL Hematocrit 38.8 36.0-48.0 % Mean Corpuscular Volume 83.4 81.0-99.0 fL Mean Corpuscular Hemoglobin 25.2 26.7-34.0 pg Mean Corpuscular HGB Conc 30.2 29.9-35.2 g/dL Red Cell Distribution Width 15.2 11.0-15.0 % Platelet Count 312 150-450 10 3/uL Mean Platelet Volume 9.5 9.5-13.5 fL Neutrophils Percent Auto 59.9 43.0-75.0 % Lymphocytes Percent Auto 26.7 20.5-60.0 % Monocytes Percent Auto 8.1 1.7-12.0 % Eosinophils Percent Auto 4.3 0.9-7.0 % Basophils Percent Auto 0.5 0.2-2.0 % Immature Granulocytes Pct Auto 0.5 0.0-0.5 % Neutrophils Absolute Auto 3.6 1.4-6.5 10 3/uL Lymphocytes Absolute Auto 1.6 1.2-3.8 10 3/uL Monocytes Absolute Auto 0.5 0.3-0.8 10 3/uL Eosinophils Absolute Auto 0.3 0.0-0.7 10 3/uL Basophils Absolute Auto 0.0 0.0-0.1 10 3/uL Immature Granulocytes Abs Auto 0.03 0.00-0.03 10 3/uL Performing Lab: see note ML - [facility] LB ECG 12 lead Reviewed date:10/29/2024 12:06:57 PM Interpretation: Performing Lab: Notes/Report: Source Facility: [facility] [place] [address] [place] [address] Electrocardiograph Report Signed Patient: NOEL PAUL MR#: [id number] : 1990 Acct:[id number] Age/Sex: 34 / F ADM Date: 10/26/24 Loc: PST Attending Dr: Gaurav Snyder M.D. Ordering Physician: Gaurav Snyder M.D. 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 Signed By: 10/28/24 0735 DD/ 1047 TD/TT: Underwater Trapper: [place] [address] Electrocardiograph Report Signed Patient: NOEL PAUL MR#: [id number] : 1990 Acct:[id number] Age/Sex: 34 / F ADM Date: 10/26/24 Loc: PST Attending Dr: Gaurav Snyder M.D. Ordering Physician: Gaurav Snyder M.D. 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0 10 3/uL Red Blood Count 4.72 4.20-5.40 10 6/uL Hemoglobin 11.9 12.0-16.0 g/dL Hematocrit 39.1 36.0-48.0 % Mean Corpuscular Volume 82.8 81.0-99.0 fL Mean Corpuscular Hemoglobin 25.2 26.7-34.0 pg Mean Corpuscular HGB Conc 30.4 29.9-35.2 g/dL Red Cell Distribution Width 14.6 11.0-15.0 % Platelet Count 342 150-450 10 3/uL Mean Platelet Volume 9.6 9.5-13.5 fL Neutrophils Percent Auto 74.9 43.0-75.0 % Lymphocytes Percent Auto 17.1 20.5-60.0 % Monocytes Percent Auto 4.0 1.7-12.0 % Eosinophils Percent Auto 3.0 0.9-7.0 % Basophils Percent Auto 0.5 0.2-2.0 % Immature Granulocytes Pct Auto 0.5 0.0-0.5 % Neutrophils Absolute Auto 8.3 1.4-6.5 10 3/uL Lymphocytes Absolute Auto 1.9 1.2-3.8 10 3/uL Monocytes Absolute Auto 0.4 0.3-0.8 10 3/uL Eosinophils Absolute Auto 0.3 0.0-0.7 10 3/uL Basophils Absolute Auto 0.1 0.0-0.1 10 3/uL Immature Granulocytes Abs Auto 0.06 0.00-0.03 10 3/uL Performing Lab: see note ML - [facility] LB Erythrocyte Sedimentation Ra te Reviewed date:10/23/2024 09:49:43 AM Interpretation: Performing Lab: Notes/Report: [facility] , Erythrocyte Sedimentation Rate 82 <=20 mm/hr Performing Lab: see note ML - [facility] LB PROF CHEM 8 (BAS METB) Reviewed date:10/23/2024 09:49:43 AM Interpretation: Performing Lab: Notes/Report: [facility] , Sodium 139 136-145 mmol/L Potassium 3.4 3.5-5.1 mmol/L Chloride 101 98-107 mmol/L Carbon Dioxide 25.8 21.0-32.0 mmol/L Anion Gap 15.6 Glucose 165 74-106 mg/dL Blood Urea Nitrogen 18.0 7.0-18.0 mg/dL Creatinine 0.92 0.55-1.02 mg/dL Estimated GFR ( Rasheeda >60 >=60 mL/min/1.73m 2 Estimated GFR (Non- Yamel >60 >=60 mL/min/1.73m 2 BUN Creatinine Ratio 19.6 Calcium 9.4 8.5-10.1 mg/dL Performing Lab: see note ML - [facility] LB CRP Reviewed date:10/23/2024 09:49:43 AM Interpretation: Performing Lab: Notes/Report: [facility] , C Reactive Protein 3.76 <=0.50 mg/dL Performing Lab: see note ML - [facility] LB CBC AUTO DIFF Reviewed date:10/23/2024 09:49:43 AM Interpretation: Performing Lab: Notes/Report: [facility] , White Blood Count 13.5 4.0-11.0 10 3/uL Red Blood Count 4.97 4.20-5.40 10 6/uL Hemoglobin 12.7 12.0-16.0 g/dL Hematocrit 40.7 36.0-48.0 % Mean Corpuscular Volume 81.9 81.0-99.0 fL Mean Corpuscular Hemoglobin 25.6 26.7-34.0 pg Mean Corpuscular HGB Conc 31.2 29.9-35.2 g/dL Red Cell Distribution Width 14.8 11.0-15.0 % Platelet Count 358 150-450 10 3/uL Mean Platelet Volume 9.4 9.5-13.5 fL Neutrophils Percent Auto 71.6 43.0-75.0 % Lymphocytes Percent Auto 19.9 20.5-60.0 % Monocytes Percent Auto 4.9 1.7-12.0 % Eosinophils Percent Auto 2.6 0.9-7.0 % Basophils Percent Auto 0.5 0.2-2.0 % Immature Granulocytes Pct Auto 0.5 0.0-0.5 % Neutrophils Absolute Auto 9.7 1.4-6.5 10 3/uL Lymphocytes Absolute Auto 2.7 1.2-3.8 10 3/uL Monocytes Absolute Auto 0.7 0.3-0.8 10 3/uL Eosinophils Absolute Auto 0.4 0.0-0.7 10 3/uL Basophils Absolute Auto 0.1 0.0-0.1 10 3/uL Immature Granulocytes Abs Auto 0.07 0.00-0.03 10 3/uL Performing Lab: see note ML - [facility] MR foot RT wo con Reviewed date:10/18/2024 01:38:15 PM Interpretation: Performing Lab: Notes/Report: Source Facility: [place] [address] Magnetic Resonance Report Signed Patient: NOEL PAUL MR#: [id number] : 1990 Acct:[id number] Age/Sex: 34 / F ADM Date: 10/16/24 Loc: MRI Attending Dr: TIARA AVELAR Ordering Physician: TIARA AVELAR Date of Service: 10/16/24 Procedure(s): MR foot RT wo con Accession Number(s): [id number] cc: TIARA AVELAR ; MONIQUE EMMANUEL [place] [address] Patient Name: NOEL PAUL MRN: [id number] date: 1990 Sex: F Assigned Patient Location: MRI Current Patient Location: MRI Accession/Order Number: [id number] Exam Date: 10/16/2024 09:54 Report Date: 10/18/2024 11:04 At the request of: TIARA AVELAR Procedure: MR foot RT wo con EXAM: MR foot RT wo con HISTORY: Pain and swelling in the right foot. Evaluate for stress fracture. COMPARISON: Right foot x-rays from 03/14/2024. TECHNIQUE: Multiplanar and multisequence imaging of the right foot was performed without contrast. FINDINGS: No acute fracture or dislocation is evident. No metatarsal stress fracture is identified. Motion artifact mildly degrades evaluation on this study. The visualized distal tibia and fibula appear intact on the edge of the [id number] of the sagittal images. There is no OCD lesion involving the talar dome. There is an accessory navicular bone along the posteromedial aspect of the navicular measuring approximately 1.8 x 1.3 cm. There is mild bone marrow edema in the accessory navicular and adjacent medial aspect of the navicular bone suspicious for adjacent stress response. The tarsometatarsal alignment is anatomic. No focal tear of the Lisfranc ligament is identified. There is a bone island in the posterior superior aspect of the calcaneus and in the anterior aspect of the talus. There appears to be mild diffuse joint space narrowing in the midfoot and subtalar joint. No Achilles tendon tear is evident. The peroneal tendons appear intact. There is mild thickening and intermediate signal of the posterior tibialis tendon near the navicular attachment site consistent with moderate tendinopathy and fraying with possible low-grade partial thickness tearing in this area. There is no cystic or solid mass in the region of the tarsal tunnel. There is no acute abnormality involving the plantar fascia. There is a small plantar calcaneal spur. MR/MR foot RT wo con IMPRESSION: 1. There is an accessory navicular bone along the posteromedial aspect of the navicular with mild bone marrow edema in the accessory navicular and adjacent medial aspect of the navicular bone suspicious for mild adjacent stress response. 2. No acute fracture. No metatarsal stress fracture is evident. 3. There is moderate tendinopathy with fraying and possible low-grade partial thickness tearing of the posterior tibialis tendon near the navicular attachment site. 4. Mild diffuse degenerative change involves the midfoot and subtalar joint. Electronically authenticated by: LUPE GUZMAN Date: 10/18/2024 11:04 Dictated By: Lupe Guzman M.D. Signed By: 10/18/24 1106 DD/ 1104 TD/TT: Underwater Trapper: The [address] [address] Magnetic Resonance Report Signed Patient: NOEL PAUL MR#: [id number] : 1990 Acct:[id number] Age/Sex: 34 / F ADM Date: 10/16/24 Loc: MRI Attending Dr: ROMELIA AVELAR Ordering Physician: TIARA AVELAR Date of Service: 10/16/24 Procedure(s): MR nika t RT wo con Accession Number(s): [id number] cc: TIARA AVELAR ; MONIQUE EMMANUEL [address] [address] Patient Name: NOEL PAUL MRN: [id number] date: 1990 Sex: F Assigned Patient Location: MRI Current Patient Loca tion: MRI Accession/Order Numb er: [id number] Exam Date: 09:54 Report Date: 10/18/2024 11:04 At the request of: TIARA AVELAR Procedure: MR foot R T wo con EXAM: MR foot RT wo con HISTORY: Pain and swelling in the right foot. Evaluate for stress fracture. COMPARISON: Right fo ot x-rays from 03/14/2024. TECHNIQUE: Multiplan ar and multisequence imaging of the right foot was performed without contrast. FINDINGS: No acute fracture or dislocation is evident. No metatarsal stress fracture is identifi ed. Motion artifact mildly degrades evaluation on this study. The visualize d distal tibia and fibula appear intact on the edge of the phucm-oy-mjhd of the sagittal images. There is no OCD lesion involving the talar dome. There is an accessor y navicular bone along the posteromedial aspect of the navicular measuring approximately 1.8 x 1.3 cm. There is mild bone marrow edema in the accessory navicular and adjacent medial aspect of the navicular bone suspicious for adjac ent stress response. The tarsometatarsal alignment is anatomic. No focal tear of the Lisfranc ligament is identifi ed. There is a bone island in the posterior superior aspect of the calcaneus and in the anterior aspect of the talus. There appears to be mild diffuse joint s pace narrowing in the midfoot and subtalar joint. No Achilles tendon t ear is evident. The peroneal tendons appear intact. There is mild thickening a nd intermediate signal of the posterior tibialis tendon near the navicular attachment site consistent with moderate tendinopathy and fraying with possibl e low-grade partial thickness tearing in this area. There is no cystic o r solid mass in the region of the tarsal tunnel. There is no acute abnormality involving the plantar fascia. There is a small plantar calcaneal spur. M R/MR foot RT wo con IMPRESSION: 1. There is an acces marianela navicular bone along the posteromedial aspect of the navicular with mild bone marrow edema in the accessory navicular and adjacent medial aspect of the navicular bone suspicious for mild adjacent stress response. 2. No acute fracture . No metatarsal stress fracture is evident. 3. There is moderate tendinopathy with fraying and possible low-grade partial thickness tearing of the posterior tibialis tendon near the navicular attachment site. 4. Mild diffuse degenerative change involves the midfoot and subtalar joint. Electronically authenticated by: LUPE GUZMAN Date: 10/18/2024 11:04 Dictated By: Rogers Guzman M.D. Signed By: 10/18/246 DD/ TD/TT: Underwater Trapper: PROF Banerjee(COMP METB) Reviewed date:03/06/2025 11:14:33 AM Interpretation: Performing Lab: Notes/Report: [facility] , Sodium 141 136-145 mmol/L Potassium 4.1 3.5-5.1 mmol/L Chloride 105 98-107 mmol/L Carbon Dioxide 29.7 21.0-32.0 mmol/L Anion Gap 10.4 Glucose 93 74-106 mg/dL Blood Urea Nitrogen 16.0 7.0-18.0 mg/dL Creatinine 0.94 0.55-1.02 mg/dL Estimated GFR ( Rasheeda >60 >=60 mL/min/1.73m 2 Estimated GFR (Non- Yamel >60 >=60 mL/min/1.73m 2 BUN Creatinine Ratio 17.0 Calcium 9.2 8.5-10.1 mg/dL Bilirubin Total 0.6 0.2-1.0 mg/dL Aspartate Amino Transferase 22 15-37 U/L Alanine Aminotransferase 33 14-59 U/L Alkaline Phosphatase 72 46-116 U/L Total Protein 7.3 6.4-8.2 g/dL Albumin Level 3.1 3.4-5.0 g/dL Globulin 4.2 Albumin Globulin Ratio 0.7 Performing Lab: see note ML - [facility] LB PREG QUANT HCG Reviewed date:03/06/2025 11:14:33 AM Interpretation: Performing Lab: Notes/Report: [facility] , HCG Quantitative <1 5-50 0.2-1 WEEK 50-500 1-2 WEEKS 100-5,000 2-3 WEEKS 500-10,000 3-4 WEEKS 1,000-50,000 4-5 WEEKS 10,000-100,000 5-6 WEEKS 15,000-200,000 6-8 WEEKS 10,000-100,000 2-3 MONTHS Performing Lab: see note ML - [facility] LB LACTATE or LACTIC ACID Reviewed date:03/06/2025 11:14:33 AM Interpretation: Performing Lab: Notes/Report: [facility] , Lactate/Lactic Acid 1.0 0.4-2.0 mmol/L Performing Lab: see note ML - [facility] LB CBC AUTO DIFF Reviewed date:03/06/2025 11:14:33 AM Interpretation: Performing Lab: Notes/Report: [facility] , White Blood Count 12.3 4.0-11.0 10 3/uL Red Blood Count 4.68 4.20-5.40 10 6/uL Hemoglobin 12.0 12.0-16.0 g/dL Hematocrit 38.7 36.0-48.0 % Mean Corpuscular Volume 82.7 81.0-99.0 fL Mean Corpuscular Hemoglobin 25.6 26.7-34.0 pg Mean Corpuscular HGB Conc 31.0 29.9-35.2 g/dL Red Cell Distribution Width 15.3 11.0-15.0 % Platelet Count 323 150-450 10 3/uL Mean Platelet Volume 9.4 9.5-13.5 fL Neutrophils Percent Auto 70.1 43.0-75.0 % Lymphocytes Percent Auto 20.9 20.5-60.0 % Monocytes Percent Auto 5.1 1.7-12.0 % Eosinophils Percent Auto 3.0 0.9-7.0 % Basophils Percent Auto 0.5 0.2-2.0 % Immature Granulocytes Pct Auto 0.4 0.0-0.5 % Neutrophils Absolute Auto 8.6 1.4-6.5 10 3/uL Lymphocytes Absolute Auto 2.6 1.2-3.8 10 3/uL Monocytes Absolute Auto 0.6 0.3-0.8 10 3/uL Eosinophils Absolute Auto 0.4 0.0-0.7 10 3/uL Basophils Absolute Auto 0.1 0.0-0.1 10 3/uL Immature Granulocytes Abs Auto 0.05 0.00-0.03 10 3/uL Performing Lab: see note ML - [facility] LB CBC AUTO DIFF Reviewed date:02/11/2025 04:35:45 PM Interpretation: Performing Lab: Notes/Report: [facility] , White Blood Count 10.9 4.0-11.0 10 3/uL Red Blood Count 5.00 4.20-5.40 10 6/uL Hemoglobin 12.6 12.0-16.0 g/dL Hematocrit 41.6 36.0-48.0 % Mean Corpuscular Volume 83.2 81.0-99.0 fL Mean Corpuscular Hemoglobin 25.2 26.7-34.0 pg Mean Corpuscular HGB Conc 30.3 29.9-35.2 g/dL Red Cell Distribution Width 15.1 11.0-15.0 % Platelet Count 343 150-450 10 3/uL Mean Platelet Volume 9.2 9.5-13.5 fL Neutrophils Percent Auto 69.5 43.0-75.0 % Lymphocytes Percent Auto 20.6 20.5-60.0 % Monocytes Percent Auto 5.3 1.7-12.0 % Eosinophils Percent Auto 3.4 0.9-7.0 % Basophils Percent Auto 0.7 0.2-2.0 % Immature Granulocytes Pct Auto 0.5 0.0-0.5 % Neutrophils Absolute Auto 7.6 1.4-6.5 10 3/uL Lymphocytes Absolute Auto 2.2 1.2-3.8 10 3/uL Monocytes Absolute Auto 0.6 0.3-0.8 10 3/uL Eosinophils Absolute Auto 0.4 0.0-0.7 10 3/uL Basophils Absolute Auto 0.1 0.0-0.1 10 3/uL Immature Granulocytes Abs Auto 0.05 0.00-0.03 10 3/uL Performing Lab: see note ML - [facility] LB LIPASE Reviewed date:03/06/2025 11:14:33 AM Interpretation: Performing Lab: Notes/Report: [facility] , Lipase 34.0 16.0-77.0 U/L Performing Lab: see note ML - [facility] LB HCG Qualitative* Reviewed date:11/05/2024 12:33:13 PM Interpretation: Performing Lab: Notes/Report: [facility] , HCG Qualitative NEGATIVE NEGATIVE Performing Lab: see note - [facility] LB CBC AUTO DIFF Reviewed date:08/17/2024 08:31:31 AM Interpretation: Performing Lab: Notes/Report: [facility] , White Blood Count 11.1 4.0-11.0 10 3/uL Red Blood Count 4.72 4.20-5.40 10 6/uL Hemoglobin 12.1 12.0-16.0 g/dL Hematocrit 39.6 36.0-48.0 % Mean Corpuscular Volume 83.9 81.0-99.0 fL Mean Corpuscular Hemoglobin 25.6 26.7-34.0 pg Mean Corpuscular HGB Conc 30.6 29.9-35.2 g/dL Red Cell Distribution Width 14.6 11.0-15.0 % Platelet Count 323 150-450 10 3/uL Mean Platelet Volume 9.3 9.5-13.5 fL Neutrophils Percent Auto 71.6 43.0-75.0 % Lymphocytes Percent Auto 20.1 20.5-60.0 % Monocytes Percent Auto 5.0 1.7-12.0 % Eosinophils Percent Auto 2.4 0.9-7.0 % Basophils Percent Auto 0.4 0.2-2.0 % Immature Granulocytes Pct Auto 0.5 0.0-0.5 % Neutrophils Absolute Auto 8.0 1.4-6.5 10 3/uL Lymphocytes Absolute Auto 2.2 1.2-3.8 10 3/uL Monocytes Absolute Auto 0.6 0.3-0.8 10 3/uL Eosinophils Absolute Auto 0.3 0.0-0.7 10 3/uL Basophils Absolute Auto 0.1 0.0-0.1 10 3/uL Immature Granulocytes Abs Auto 0.06 0.00-0.03 10 3/uL Performing Lab: see note ML - [facility] LB SARS-CoV-2 Ag* Reviewed date:07/12/2024 08:00:26 AM Interpretation: Performing Lab: Notes/Report: [facility] , SARS-CoV-2 Ag NEGATIVE NEGATIVE This test has not been FDA cleared or approved, but has been authorized by the FDA under an Emergency Use Authorization (EUA) for use by authorized laboratories certified under CLIA that meet the requirements to perform moderate or high complexity testing. This test has been authorized only for the detection of proteins from SARS-CoV-2, not for any other viruses or pathogens. The emergency use of this test is authorized for the duration of the declaration that circumstances exist justifying the authorization of emergency use of in vitro diagnostic tests for detection and/or diagnosis of Covid-19 under section 564(b)(1) of the Act, 21 U.S.C. 360bbb-3(b)(1), unless the declaration is terminated or authorization is revoked sooner. Performing Lab: see note - [facility] LB PROF CHEM 8 (BAS METB) Reviewed date:11/06/2024 03:02:08 PM Interpretation: Performing Lab: Notes/Report: [facility] , Sodium 141 136-145 mmol/L Potassium 4.2 3.5-5.1 mmol/L Chloride 106 98-107 mmol/L Carbon Dioxide 29.2 21.0-32.0 mmol/L Anion Gap 10.0 Glucose 171 74-106 mg/dL Blood Urea Nitrogen 17.0 7.0-18.0 mg/dL Creatinine 0.93 0.55-1.02 mg/dL Estimated GFR ( Rasheeda >60 >=60 mL/min/1.73m 2 Estimated GFR (Non- Yamel >60 >=60 mL/min/1.73m 2 BUN Creatinine Ratio 18.3 Calcium 8.9 8.5-10.1 mg/dL Performing Lab: see note ML - [facility] LB XR ankle LT min 3V Reviewed date:01/21/2025 08:55:44 AM Interpretation: Performing Lab: Notes/Report: Source Facility: [facility] [place] [address] [place] [address] XRay Report Signed Patient: NOEL PAUL MR#: [id number] : 1990 Acct:[id number] Age/Sex: 34 / F ADM Date: 01/19/25 Loc: ER Attending Dr: Ordering Physician: Abdon Weber D.O. Date of Service: 01/19/25 Procedure(s): XR ankle LT min 3V Accession Number(s): [id number] cc: MONIQUE EMMANUEL ; Abdon Weber D.O. The [place] [id number] Patient Name: NOEL PAUL MRN: [id number] date: 1990 Sex: F Assigned Patient Location: ER Current Patient Location: ER Accession/Order Number: [id number] Exam Date: 01/19/2025 12:45 Report Date: 01/19/2025 12:47 At the request of: ABDON WEBER Procedure: XR ankle LT min 3V XR ankle LT min 3V 01/19/2025 12:43 PM SIGNS AND SYMPTOMS: Pain in left ankle medially and along the calcaneus, twisting injury PROTOCOL: Frontal, lateral, and oblique radiographs of the left ankle COMPARISON: 05/24/2024 FINDINGS: The ankle mortise is preserved. There is no fracture or dislocation. There is nonspecific diffuse soft tissue swelling. There is plantar and Achilles surface calcaneal spurring. XR/XR ankle LT min 3V IMPRESSION: No acute bony injury. Diffuse soft tissue swelling is noted. Impression dictated by: Fermín Wilks M.D.01/19/2025 12:47 PM Dictation Location: [place] [address] Electronically authenticated by: [id number] Y Date: 01/19/2025 12:47 Dictated By: Fermín Wilks M.D. Signed By: 01/19/25 1249 DD/ 1247 TD/TT: Underwater Trapper: The [place] [id number] XRay Report Signed Patient: NOEL PAUL MR#: [id number] : 1990 Acct:[id number] Age/Sex: 34 / F ADM Date: 01/19/25 Loc: ER Attending Dr: Ordering Physician: Abdon Weber D.O. Date of Service: 01/19/25 Procedure(s): XR ank le LT min 3V Accession Number(s): [id number] cc: MONIQUE EMMANUEL ; Abdon Weber D.O. The [place] [id number] Patient Name: NOEL PAUL MRN: [id number] date: 1990 Sex: F Assigned Patient Location: ER Current Patient Loca tion: ER Accession/Order Numb er: [id number] Exam Date: 01/19/2025 12:45 Report Date: 01/19/2025 12:47 At the request of: ABDON WEBER Procedure: XR ankle LT min 3V XR ankle LT min 3V 01/19/2025 12:43 PM SIGNS AND SYMPTOMS: Pain in left ankle medially and along the calcaneus, twisting injury PROTOCOL: Frontal, lateral, and oblique radiographs of the left ankle COMPARISON: 05/24/2024 FINDINGS: The ankle mortise is preserved. There is no fracture or dislocation. There is nonspecific diffu se soft tissue swelling. There is plantar and Achilles surface calcaneal spurring. X R/XR ankle LT min 3V IMPRESSION: No acute bony injury. Diffuse soft tissue swelling is noted. Impression dictated by: Fermín Wilks M.D.01/19/2025 12:47 PM Dictation Location: [place] [address] Electronically authenticated by: [id number] Y Date: 01/19/2025 12:47 Dictated By: Fermín Wilks M.D. Signed By: 01/19/25 1249 DD/ 1247 TD/TT: Underwater Trapper: Blood Culture 2 Reviewed date:11/26/2024 08:31:42 AM Interpretation: Performing Lab: Notes/Report: LEFT AC [facility] , Blood Culture 2 See Below For Report Blood Culture 2 NG5D NO GROWTH AT 5 DAYS. Performing Lab: see note - [facility] LB Blood Culture 1 Reviewed date:11/26/2024 08:31:42 AM Interpretation: Performing Lab: Notes/Report: RIGHT AC IV START [facility] , Blood Culture 1 See Below For Report Blood Culture 1 NG5D NO GROWTH AT 5 DAYS. Performing Lab: see note ML - [facility] LB XR chest 1V Reviewed date:11/06/2024 03:02:08 PM Interpretation: Performing Lab: Notes/Report: Source Facility: [place] [address] [place] [address] XRay Report Signed Patient: NOEL PAUL MR#: [id number] : 1990 Acct:[id number] Age/Sex: 34 / F ADM Date: 11/05/24 Loc: [place] 202- Attending Dr: Shannon Garcia M.D. Ordering Physician: Shannon Garcia M.D. Date of Service: 11/05/24 Procedure(s): XR chest 1V Accession Number(s): [id number] cc: MONIQUE EMMANUEL ; Shannon Garcia M.D. The [place] [address] Patient Name: NOEL PAUL MRN: [id number] date: 1990 Sex: F Assigned Patient Location: [place] Current Patient Location: [place] Accession/Order Number: [id number] Exam Date: 11/05/2024 19:25 Report Date: 11/05/2024 22:07 At the request of: SHANNON GARCIA Procedure: XR chest 1V EXAM: XR chest 1V HISTORY: Dyspnea COMPARISON: None. TECHNIQUE: Chest X-ray AP, 1 view FINDINGS: Support devices: None. Lungs/pleura: There are low lung volumes. Diffuse bilateral perihilar airspace opacities and external markings, likely representing pulmonary edema. However, multifocal pneumonia cannot be excluded. No pneumothorax. Heart and mediastinum: Normal contours. Bones: No acute abnormality identified. XR/XR chest 1V Impression: There are low lung volumes. Diffuse bilateral perihilar airspace opacities and external markings, likely representing pulmonary edema. However, multifocal pneumonia cannot be excluded. Electronically authenticated by: GABRIELLE CRISTOBAL Date: 11/05/2024 22:07 Dictated By: Gabrielle Cristobal M.D. Signed By: 11/05/242208 DD/ 06 TD/TT: Underwater Trapper: The [address] [address] XRay Report Signed Patient: NOEL PAUL MR#: [id number] : 1990 Acct:[id number] Age/Sex: 34 / F ADM Date: 11/05/24 Loc: [place] 202-[address]: Debbi Garcia M.D. Ordering Physician: Shannon Garcia M.D. Date of Service: 11/05/24 Procedure(s): XR chest 1V Accession Number(s): [id number] cc: MONIQUE EMMANUEL ; Shannon Garcia M.D. The [place] [id number] Patient Name: NOEL PAUL MRN: [id number] date: 1990 Sex: F Assigned Patient Location: [place] Current Patient Loca tion: MS Accession/Order Numb er: [id number] Exam Date: 19:25 Report Date: 11/05/2024 22:07 At the request of: SHANNON GARCIA Procedure: XR chest 1V EXAM: XR chest 1V HISTORY: Dyspnea COMPARISON: None. TECHNIQUE: Chest X-r ay AP, 1 view FINDINGS: Support devices: None. Lungs/pleura: There are low lung volumes. Diffuse bilateral perihilar airspace opacities and binding nicker al markings, likely representing pulmonary edema. However, multifocal pneumonia cannot be excluded. No pneumothorax. Heart and mediastinu m: Normal contours. Bones: No acute abnormality identified. X R/XR chest 1V Impression: There are low lung volumes. Diffuse bilateral perihilar airspace opacities and external markings, l ikely representing pulmonary edema. However, multifocal pneumonia cannot be excluded. Electronically authenticated by: GABRIELLE CRISTOBAL Date: 11/05/2024 22:07 Dictated By: Gabrielle Cristobal M.D. Signed By: 11/05/242208 DD/ 06 TD/TT: Underwater Trapper: PROF INGE Haas ([facility]) Reviewed date:11/06/2024 03:02:08 PM Interpretation: Performing Lab: Notes/Report: [facility] , Sodium 139 136-145 mmol/L Potassium 3.8 3.5-5.1 mmol/L Chloride 103 98-107 mmol/L Carbon Dioxide 27.6 21.0-32.0 mmol/L Anion Gap 12.2 Glucose 262 74-106 mg/dL Blood Urea Nitrogen 15.0 7.0-18.0 mg/dL Creatinine 1.19 0.55-1.02 mg/dL Estimated GFR ( Rasheeda >60 >=60 mL/min/1.73m 2 Estimated GFR (Non- Yamel 51 >=60 mL/min/1.73m 2 BUN Creatinine Ratio 12.6 Calcium 8.8 8.5-10.1 mg/dL Performing Lab: see note ML - [facility] LB CBC AUTO DIFF Reviewed date:11/06/2024 03:02:08 PM Interpretation: Performing Lab: Notes/Report: [facility] , White Blood Count 15.3 4.0-11.0 10 3/uL Red Blood Count 4.92 4.20-5.40 10 6/uL Hemoglobin 12.5 12.0-16.0 g/dL Hematocrit 41.1 36.0-48.0 % Mean Corpuscular Volume 83.5 81.0-99.0 fL Mean Corpuscular Hemoglobin 25.4 26.7-34.0 pg Mean Corpuscular HGB Conc 30.4 29.9-35.2 g/dL Red Cell Distribution Width 14.9 11.0-15.0 % Platelet Count 379 150-450 10 3/uL Mean Platelet Volume 9.5 9.5-13.5 fL Neutrophils Percent Auto 91.2 43.0-75.0 % Lymphocytes Percent Auto 6.9 20.5-60.0 % Monocytes Percent Auto 0.5 1.7-12.0 % Eosinophils Percent Auto 0.1 0.9-7.0 % Basophils Percent Auto 0.3 0.2-2.0 % Immature Granulocytes Pct Auto 1.0 0.0-0.5 % Neutrophils Absolute Auto 14.0 1.4-6.5 10 3/uL Lymphocytes Absolute Auto 1.1 1.2-3.8 10 3/uL Monocytes Absolute Auto 0.1 0.3-0.8 10 3/uL Eosinophils Absolute Auto 0.0 0.0-0.7 10 3/uL Basophils Absolute Auto 0.0 0.0-0.1 10 3/uL Immature Granulocytes Abs Auto 0.15 0.00-0.03 10 3/uL Performing Lab: see note - [facility] LB BNP Reviewed date:11/06/2024 03:02:08 PM Interpretation: Performing Lab: Notes/Report: [facility] , NT Pro B Type Natriuretic Pept 78.0 <=450.0 pg/mL Performing Lab: see note - [facility] LB Venous Blood Gas Reviewed date:11/06/2024 11:41:03 AM Interpretation: Performing Lab: Notes/Report: [facility] , pH VBG 7.387 7.330-7.430 PCO2 VBG 44.8 40.0-52.0 mmHg Performing Lab: see note - [facility] LB CBC AUTO DIFF Reviewed date:11/05/2024 12:21:30 PM Interpretation: Performing Lab: Notes/Report: [facility] [facility] , White Blood Count 11.8 4.0-11.0 10 3/uL Red Blood Count 4.80 4.20-5.40 10 6/uL Hemoglobin 12.1 12.0-16.0 g/dL Hematocrit 40.3 36.0-48.0 % Mean Corpuscular Volume 84.0 81.0-99.0 fL Mean Corpuscular Hemoglobin 25.2 26.7-34.0 pg Mean Corpuscular HGB Conc 30.0 29.9-35.2 g/dL Red Cell Distribution Width 15.0 11.0-15.0 % Platelet Count 340 150-450 10 3/uL Mean Platelet Volume 9.3 9.5-13.5 fL Neutrophils Percent Auto 71.3 43.0-75.0 % Lymphocytes Percent Auto 19.5 20.5-60.0 % Monocytes Percent Auto 4.9 1.7-12.0 % Eosinophils Percent Auto 3.3 0.9-7.0 % Basophils Percent Auto 0.5 0.2-2.0 % Immature Granulocytes Pct Auto 0.5 0.0-0.5 % Neutrophils Absolute Auto 8.4 1.4-6.5 10 3/uL Lymphocytes Absolute Auto 2.3 1.2-3.8 10 3/uL Monocytes Absolute Auto 0.6 0.3-0.8 10 3/uL Eosinophils Absolute Auto 0.4 0.0-0.7 10 3/uL Basophils Absolute Auto 0.1 0.0-0.1 10 3/uL Immature Granulocytes Abs Auto 0.06 0.00-0.03 10 3/uL Performing Lab: see note ML - [facility] LB CBC AUTO DIFF Reviewed date:11/06/2024 03:02:08 PM Interpretation: Performing Lab: Notes/Report: [facility] , White Blood Count 17.8 4.0-11.0 10 3/uL Red Blood Count 4.56 4.20-5.40 10 6/uL Hemoglobin 11.7 12.0-16.0 g/dL Hematocrit 38.3 36.0-48.0 % Mean Corpuscular Volume 84.0 81.0-99.0 fL Mean Corpuscular Hemoglobin 25.7 26.7-34.0 pg Mean Corpuscular HGB Conc 30.5 29.9-35.2 g/dL Red Cell Distribution Width 14.9 11.0-15.0 % Platelet Count 353 150-450 10 3/uL Mean Platelet Volume 10.0 9.5-13.5 fL Neutrophils Percent Auto 85.8 43.0-75.0 % Lymphocytes Percent Auto 8.8 20.5-60.0 % Monocytes Percent Auto 4.4 1.7-12.0 % Eosinophils Percent Auto 0.0 0.9-7.0 % Basophils Percent Auto 0.2 0.2-2.0 % Immature Granulocytes Pct Auto 0.8 0.0-0.5 % Neutrophils Absolute Auto 15.3 1.4-6.5 10 3/uL Lymphocytes Absolute Auto 1.6 1.2-3.8 10 3/uL Monocytes Absolute Auto 0.8 0.3-0.8 10 3/uL Eosinophils Absolute Auto 0.0 0.0-0.7 10 3/uL Basophils Absolute Auto 0.0 0.0-0.1 10 3/uL Immature Granulocytes Abs Auto 0.14 0.00-0.03 10 3/uL Performing Lab: see note ML - [facility] LB Venous Blood Gas Reviewed date:11/06/2024 11:41:03 AM Interpretation: Performing Lab: Notes/Report: [facility] , pH VBG 7.326 7.330-7.430 PCO2 VBG 51.8 40.0-52.0 mmHg Performing Lab: see note ML - [facility] Reason For Referral Reason external otitis not clearing Diagnosis 1 External otitis of l eft ear (H60.92) Referral Organization [facility] Referring Provider First Name Monique Referring Provider Last Name Danni Referring Provider [facility] Referred Provider Jaime Woods Referred Provider Specialty Otolaryngolo gy Referral Priority Routine Diagnosis 1 External otitis of l eft ear (H60.92) Referral Organization [facility] Referring Provider First Name Monique Referring Provider Last Name Danni Referring Provider [facility] Referred Provider Hawk Brito Referred Provider Specialty Otolaryngolo gy Referral Priority Routine Reason sleep study Diagnosis 1 Snoring (R06.83) Referral Organization [facility] Referring Provider First Name Monique Referring Provider Last Name Danni [facility]erred Provider [facility] Referred Provider Specialty Sleep Medici ne Referral Priority Routine Medications Medication SIG (Take, Route, Frequency, Duration) Notes Start Date End Date Status OneTouch Delica Plus Bealnt86N - USE TO TEST BLOOD SUGAR ONCE EVERY MORNING for 90 Active Ferrous Sulfate 325 (65 Fe) MG 1 tablet Orally Three times a Week for 30 days Active Omeprazole 20 MG TAKE 1 CAPSULE BY MO UTH EVERY DAY for 90 Active traZODone HCl 100 MG TAKE 1 TABLET BY MO UTH EVERYDAY AT BEDTIME NEEDED for 90 days Active FanMobToEcomsual Ultra - USE 1 STRIP TO TEST FASTING BLOOD SUGAR ONCE EVERY MORNING for 90 Active Dexcom G7 Sensor - as directed for 28 days 024 Active Dexcom G7 Subassembly Supervisor - USE DIRECTED for 30 Active Escitalopram Oxalate 20 MG 1/2 tablet fo r the first week then 1 tablet Orally Once a day for 90 days Active metFORMIN HCl 500 MG TAKE 1 TABLET BY MO UTH TWICE A DAY WITH A MEAL FOR 30 DAYS for 90 Active Adipex-P 37.5 MG 1 tablet before augusto kfast Orally Once a day for 30 days 06/04/2025 Active glipiZIDE 5 MG one tablet po BID fo r 90 days Active Natural Vitamin D-3 125 MCG (5000 UT) TAKE 1 TABLET BY MOUTH EVERY DAY FOR 30 DAYS for 90 Active Immunizations Vaccine Route Administration Date Status Comme nts Tdap (Adacel) IM Intramuscular 07/06/2024 Administered Social History Tobacco Use: Social History Observation Description Date Details (start date - stop date) Never Smoker NA - NA Tobacco Use/Smoking Question Answer Notes Patient is a nonsmoker Alcohol Screen (Audit-C) Question Answer Notes Did you have a drink contain ing alcohol in the past year? Yes How often did you have 6 or more drinks on one occasion in the past year? Never (0 point) How many drinks did you have on a typical day when you were drinking in the past year? 1 or 2 drinks (0 point) How often did you have a dri nk containing alcohol in the past year? Less than monthly (1 point) Points 1 Interpretation Negative AUDIT-C (Standard) Question Answer Notes Did you have a drink containing alcohol in the p ast year? No Points 0 Interpretation Negative Problems Problem Type SNOMED Code ICD Code Onset Dates Problem Status W/U Status Risk Notes Problem 347079481 Type 2 diabetes mellitus with hyperglycemia (E11.65) Active confirmed Problem 324941073 Morbid (severe) obesity due to excess calories (E66.01) Active confirmed Problem 591454164 Gout, unspecified (M10.9) Active confirmed Problem 141182277 Contracture, unspecified foot (M24.576) Active confirmed Problem 903637761000180 Posterior tibial tendinitis, left leg (M76.822) Active confirmed Problem 30712383660956572 Other congenit al malformations of lower limb(s), 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 confirmed Problem Gastroesophageal reflux disease (080600462) GERD (gastroesophagea l reflux disease) (K21.9) Active confirmed Problem Anxiety (45270159) Anxiety (F41.9) Active confi rmed Problem Insomnia (808115122) Insomnia (G47.00) Active confirmed Problem Otitis externa of left ear (6882860711072144) External otitis of left ear (H60.92) Active confirmed Problem Sialoadenitis (25219385) Salivary gland adenitis (K11.20) Active confirmed Problem Morbid obesity (721108344) Class 3 obesity (E66.01) Active confirmed Vital Signs Temperature 98.1 degrees Fahrenheit 11/22/2024 Oximetry 96 % 11/08/2024 Blood pressure diastolic 82 mm Hg 06/04/2025 Height 61 in 06/04/2025 Blood pressure systolic 122 mm Hg 06/04/2025 Weight 341.0 lbs 06/04/2025 BMI 64.42 kg/m2 06/04/2025 Encounters Encounter Location Date Provider Diagnosis [facility] [address] [place] [place] [address] 02/06/2025 Monique Emmanuel Fatigue R53.83 [facility] [address] [place] [place] [address] 02/11/2025 Monique Emmanuel Low iron E61.1 [facility] [address] [place] [place] [address] 04/09/2025 Monique Emmanuel Class [address] [facility] [address] [place] [place] [address] 09/25/[address] [facility] [address] [place] [place] [address] 10/09/2024 Monique Emmanuel Type 2 diabetes mellitus with hyperglycemia E11.65 [facility] [address] [place] [place] [address] 10/15/[address] [facility] [address] [place] [place] [address] 11/06/[address] [facility] [address] [place] [address] 11/08/2024 Monique Emmanuel Pneumonia J18.9 [facility] [address] [place] [place] [address] 01/14/2025 Monique Emmanuel Type 2 diabetes mellitus with hyperglycemia E11.65 [facility] [address] [place] [place] [address] 07/04/[address] [facility] [address] [place] [place] [address] 07/06/[address] [facility] [address] [place] [place] [address] 07/11/[address] [facility] [address] [place] [place] [address] 07/12/2024 Monique Emmanuel [facility] [address] [facility] [address] 07/24/2024 Monique Emmanuel External otitis of l eft ear H60.92 [facility] [address] [facility] [address] 09/20/2024 Monique Emmanuel Type 2 diabetes mellitus with hyperglycemia E11.65 [facility] [address] [place] [place] [address] 06/26/[address] [facility] [address] [place] [place] [address] 05/09/2025 Monique Emmanuel Class 3 obesity E66. 01 [place] [address] [place] [place] [address] 06/04/2025 Monique Emmanuel Class 3 obesity E66. 01 [place] [address] [place] [address] 07/11/2024 Monique Emmanuel Viral illness B34.9 [place] [address] [place] [place] [address] 08/29/2024 Monique Emmanuel Pre-operative cleara nce Z01.818 [place] [address] [place] [address] 10/16/2024 Monique Emmanuel Class 3 obesity E66. 01 and Type 2 diabetes mellitus with hyperglycemia E11.65 [facility] [address] [place] [address] 11/08/2024 Monique Emmanuel Snoring R06.83 and Hypoxia R09.02 [place] [address] [place] [place] [address] 11/22/2024 Mo Hoy Salivary gland adeni tis K11.20 [place] [address] [place] [address] 12/06/2024 Monique Emmanuel Type 2 diabetes mellitus with hyperglycemia E11.65 and Fatigue R53.83 [place] [address] [place] [address] 06/21/2024 Monique Danni External otitis of l eft ear H60.92 [facility] [address] [place] [address] 07/06/2024 Monique Emmanuel Encounter for immunization Z23 and External otitis of left ear H60.92 Assessments Encounter Date Diagnosis (ICD Code) Assessment Notes Treatment Notes Treatment Clinical Notes Section Notes 06/21/2024 External otitis of left ear (ICD-10 - H60.92) continue monitor notify office if not improving 07/06/2024 Encounter for immunization (ICD-10 - Z23) 07/06/2024 External otitis of left ear (ICD-10 - H60.92) refer to ENT failed two rounds abx, drops 07/11/2024 Viral illness (ICD-10 - B34.9) COVID negative, supportive care notify office if worsens, not improving last ear drops helped most, refilled, checking on ENT referral 08/29/2024 Pre-operative clearance (ICD-10 - Z01.818) had sx in April , did well labs reviewed normal state of health ok for surgery 11/08/2024 Snoring (ICD-10 - R06.83) recent surgery with hypoxia afterwards, admitted overnight morbid obesity 11/08/2024 Hypoxia (ICD-10 - R09.02) continue abx sleep study fu xray 6 weeks 11/22/2024 Salivary gland adenitis (ICD-10 - K11.20) 12/06/2024 Type 2 diabetes mellitus with hyperglycemia (ICD-10 - E11.65) increase dose of glipizide work on diet continue monitor, report if not coming down A1c 2 months 12/06/2024 Fatigue (ICD-10 - R53.83) increase iron in diet, MVI with iron labs in 2 m watch for sleep study results 05/09/2025 Class 3 obesity (ICD-10 - E66.01) work on diet fu 4 weeks 06/04/2025 Class 3 obesity (ICD-10 - E66.01) work on diet 07/24/2024 External otitis of left ear (ICD-10 - H60.92) 09/20/2024 Type 2 diabetes mellitus with hyperglycemia (ICD-10 - E11.65) 10/09/2024 Type 2 diabetes mellitus with hyperglycemia (ICD-10 - E11.65) 11/08/2024 Pneumonia (ICD-10 - J18.9) 01/14/2025 Type 2 diabetes mellitus with hyperglycemia (ICD-10 - E11.65) 02/06/2025 Fatigue (ICD-10 - R53.83) 02/11/2025 Low iron (ICD-10 - E61.1) 04/09/2025 Class 3 obesity (ICD-10 - E66.01) 10/16/2024 Class 3 obesity (ICD-10 - E66.01) work on diet fu one month CSA signed OARRS reviewed has taken in past 10/16/2024 Type 2 diabetes mellitus with hyperglycemia (ICD-10 - E11.65) reviewed labs repeat A1c 3m continue monitor Plan Of Treatment Pending Test Test Name Order Date CMP (COMPLETE METABOLIC PANEL) 3 HEMOGLOBIN A1C (GLYCO) 11/15/2023 IRON, TOTAL 11/15/2023 LIPID PANEL (CHOL/TRIG/HDL/LDL) 11/15/20 23 CBC WITH DIFF 11/15/2023 VITAMIN D, 25 LEVEL (TOTAL) 11/15/2023 Insulin Level 11/15/2023 CBC W/AUTO DIFF 02/06/2025 Covid-19 PCR (CVDTBH) 07/11/2024 GLYCOHEMOGLOBIN A1C 01/14/2025 THYROID PANEL (T4/TSH/FREE T3) 3 XR chest 2V 11/08/2024 Next Appt Details Provider Name:Monqiue rutledge, 07/02/2025 04:15:00 PM, [address] [place], [address], Insurance Providers Payer Name Payer Address Payer Phone Subscriber Number Group Number Insured Name Patient Relationship to Insured Coverage Start Date Coverage End Date [employer] ACCESS PPO PLUS LOCAL PLAN [address] [place] [phone] [id number] Lonnie Paul Spouse - patient is the spouse of the insured 3 Medical (General) History Medical History History ICD Code Vitamin D deficiency E55.9 Hypertriglyceridemia E78.1 Hypothyroid E03.9 Diabetes type 2, controlled E11.9 GERD (gastroesophageal reflux disease) K 21.9 Anxiety F41.9 Surgical History Surgery Date(Month/Year) Rt shoulder scope with partial removal o f bone Rt foot kidner procedure 09/20 Lt foot modified Kidner procedure w/ pos terior splint 05/16/2024 Steroid injection in feet CHOLECYSTECTOMY left foot kidner procedure Hospitalization History Reason Date(Month/Year) Gallbladder
--- OUTSIDE RECORDS SUMMARY | 2025-06-14 09:35 | XMS_ITS | Clinical Summary ---
Author Organization [facility] Address [address] [place] [address] Care Team Providers Care Retail Associate Name Role Phone Monique Razo CNP Primary Care Provider [phone] Allergies Active Allergy Reactions Criticality Noted Date Comments Sulfa (Sulfonamide Antibiotics) Hives,Rash Low 12/2023 Medications DEXCOM G7 ASSOCIATE PROFESSOR OF ECONOMICS 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 4 Active DEXCOM G7 SENSOR eduin 5 Active DEXCOM G6 TRANSMITTER eduin as directed. 4 Active cholecalciferol (VITAMIN D3) 5,000 unit tab Take 5,000 Units by mouth once daily. Active escitalopram oxalate (LEXAPRO) 20 mg tablet TAKE 1/2 TABLET BY MOUTH ONCE A DAY FOR 1 WEEK THEN 1 TABLET ONCE A DAY Active glipiZIDE (GLUCOTROL) 5 mg tablet 5 Active metFORMIN (GLUCOPHAGE) 500 mg tablet TAKE 1 TABLET BY MOUTH TWICE A DAY WITH MEAL 2 Active omeprazole (PRILOSEC) 20 mg capsule TAKE 1 CAPSULE BY MOUTH EVERY DAY for 90 4 Active oxyCODONE-acetam inophen (PERCOCET) 5-325 mg tablet Take 1 tablet by mouth every 6 hours as needed. Active traZODone (DESYREL) 100 mg tablet TAKE 1 TABLET BY MOUTH EVERYDAY AT BEDTIME NEEDED 4 Active aspirin 325 mg tabletIndication s:Accessory navicular bone of right foot Take 1 tablet by mouth once daily. 45 tablet 5 Active keTORolac (TORADOL) 10 mg tablet Take 1 tablet by mouth every 6 hours as needed. with food. 20 tablet 5 Active Active Problems Problem Noted Date Diagnosed Date Arthritis of right acromioclavicular joint 12/28 BMI 60.0-69.9, adult 12/28/2024 Assessment & Plan (12/28/2024 10:05 AM EST): Assessment: diet and exercise encouraged BMI 62 AQUILES (obstructive sleep apnea) 12/28/2024 Assessment & Plan (12/28/2024 10:06 AM EST): Assessment: does not have CPAP yet Acid reflux 07/21/2024 Assessment & Plan (12/28/2024 10:04 AM EST): Assessment: managed with med, stable Follows up with PCP Anxiety 07/21/2024 Diabetes mellitus without complication Overview (12/26/2024): Type 2 Assessment & Plan (12/28/2024 10:08 AM EST): Assessment: managed with oral med, stable Follows up with PCP BG at home 120's HgbA1c 6.6% Vitamin D deficiency 07/21/2024 Encounters Date Type Department Care Team Description 06/11/2025 9:45 AM EDT [facility] [address] [place] [address] Melvin June DPM S/P foot surgery, right (Primary Dx); Chronic pain of right ankle 06/07/2025 Telephone [facility] [place] [address] [place] [address] Melvin June DPM Appointment 06/06/2025 7:57 AM EDT - 06/06/2025 11:59 PM EDT Hospital Encounter Radiology MRI [address] [place] [address] Chronic pain of right ankle [M25.571, G89.29] Discharge Disposition: Home 06/05/2025 Patient Msg Radiology MRI [address] [place] [address] Provider, [facility] MRI APT 05/30/2025 Travel 05/17/2025 Telephone Orthopaedics [address] [place] [address] Melvin June DPM 05/17/2025 Get Medical Advice Orthopa[facility] [address] [place] [address] Melvin June, SHITAL Boot 05/16/2025 2:30 PM EDT Office [facility] [address] [facility] [place] [address] Melvin June, DPM S/P foot surgery, right (Primary Dx); Chronic pain of right ankle 05/16/2025 2:00 PM EDT Office [facility] [address] [facility] [place] [address] Joi, Cast Tech S/P foot surgery, right (Primary Dx) 05/16/2025 Travel 05/12/2025 Get Medical Advice Orthopa[facility] [address] [place] [address] Melvin uJne, SHITAL Still having pain 05/06/2025 4:00 PM EDT Office Visit Orthopaedics [address] [place] [address] Joi, Cast Tech S/P foot surgery, right (Primary Dx) 05/03/2025 Orders Only Orthopa[facility]ics [address] [place] [address] Melvin June, DPM S/P foot surgery, right (Primary Dx) 05/03/2025 Get Medical Advice Orthopa[facility] [address] [place] [address] Melvin June, DPM Cast 04/25/2025 3:00 PM EDT Office Visit Orthopaedics [address] [place] [address] Joi, Cast Tech S/P foot surgery, right (Primary Dx) 04/25/2025 2:00 PM EDT Office Visit Orthopaedics [address] [place] [address] Melvin June, DPM Sinus tarsitis, right (Primary Dx) 04/25/2025 Travel 04/16/2025 1:45 PM EDT [facility] [address] [place] [address] Melvin June DPM S/P foot surgery, right (Primary Dx); Accessory navicular bone of right foot; Pain in right foot 04/16/2025 Patient Msg Orthopaedics [address] [place] [address] Melvin June DPM podiatry appointment 04/13/2025 Travel 04/12/2025 Get Medical Advice [facility] [address] [place] [address] Melvin June DPM Pain not going away 04/01/2025 Get Medical Advice [facility] [address] [place] [address] Melvin June DPM Pain 03/27/2025 Get Medical Advice [facility] [address] [place] [address] Melvin June DPM Work release from Last 3 Months Social History Tobacco Use Types Packs/Day Years Used Date Smoking Tobacco: Never Smokeless Tobacco: Never Tobacco Cessation:Counseling Given: Not Answered Alcohol Use Standard Drinks/Week Comments Never 0 (1 standard drink = 0.6 oz pur e alcohol) PHQ-2 Answer Date Recorded PHQ-2 score 2 06/10/2025 Area Deprivation Index Answer Date Ye rded National Score (1-100), lower number is lower ri sk 86 12/12/2024 State Score (1-10), lower number is lower risk 8 12/12/2024 Data from: https://www.neighborhoodatlas.medicine.[facility].edu/. Last address used for calculation [address] [place] [address] 12/12/2024 Comments Unknown Sex and Gender Information Value Date Recorded Sex Assigned at Not on file Legal Sex Female 12:17 PM EDT Gender Identity Not on file Sexual Orientation Not on file Last Filed Vital Signs Vital Sign Reading Time Taken Comments Blood Pressure 133/66 12/31/2024 10:10 AM EST Pulse 85 12/31/2024 10:10 AM EST Temperature 36.4 C (97.6 F) 12/31/2024 11:07 AM EST Respiratory Rate 16 12/31/2024 11:0 0 AM EST Oxygen Saturation 98% 12/31/2024 10: 10 AM EST Inhaled Oxygen Concentration - - Weight 153.9 kg (339 lb 4.6 oz) 12/28/2024 9:54 AM EST Height 157.5 cm (5' 2 ) 12/28/2024 9:54 AM EST Body Mass Index 62.06 12/28/2024 9:54 AM EST Plan of Treatment Health Maintenance Due Date Last Done Comments HbA1C 1993 Diabetic Foot Exam 1998 Dilated Retinal Exam 1998 Urine Albumin:Creatinine Ratio 1998 DTaP,Tdap,Td Vaccine (6 - Tdap) 1999 04/16/1993, 10/13/1989, 05/11/1989, Additional history exists Annual PCP Team Chronic Dise ase Visit 2006 Depression Screening 2006 HIV Screening 2006 Hepatitis C Screening 2006 LDL Cholesterol 2006 Pneumococcal Vaccine (1 of 2 - PCV) 2007 Cervical Cancer Screening 2009 Covid-19 Vaccine (2023-2 5 season) 2024 Influenza Vaccine (#1) 2025 Hepatitis B Vaccine Completed 12/20/2024, 08/16/2024, 07/19/2002 Medical Devices Implanted Type Area Tie Bucker Device Identifier Shelf Expiration Date Model / Serial / Lot [place] Suturetak Fiberwire 1 .5 [place] 2 [employer] 26.2mm Suture - [id number] Implanted:Qty: 1 on 12/31/2024 at [facility] Suture [place] Right: Bone - Foot [employer] 09/27/2026 [id number] / / [id number] Procedures Procedure Name Priority Date/Time Associated Diagnosis Comments MRI ANKLE WO IVCON RIGHT Routine 06/06/2025 8:43 AM EDT Chronic pain of right ankle [id number] Routine 04/25/2025 2:11 PM EDT Sinus tarsitis, right from Last 3 Months Results * MRI ANKLE WO IVCON RIGHT [...] the deltoid and spring ligaments as described. Category Development Analyst: HERNÁN Transcribe Date/Time: Jun 06 2025 11:37A Dictated by : RADHA TYSON MD This examination was interpreted and the report reviewed and electronically signed by: KATIANA FLORES MD on Jun 06 2025 2:13PM EST Narrative 06/06/2025 2:16 PM EDT * * *Final Report* * * DATE OF EXAM: Jun 06 2025 8:43AM [facility] 0164 - MRI ANKLE WO IVCON [...] No significant additional findings. Procedure Note Provider, [facility] [place] - 06/06/2025 * * *Final Report* * * DATE OF EXAM: Jun 06 2025 8:43AM [facility] 0164 - MRI ANKLE WO IVCON [...] the deltoid and spring ligaments as described. Category Development Analyst: PSCB Transcribe Date/Time: Jun 06 2025 11:37A Dictated by : RADHA TYSON MD This examination was interpreted and the report reviewed and electronically signed by: KATIANA FLORES MD on Jun 06 2025 2:13PM EST Melvin June DPM MRI-PAMA Final Result * [id number] (04/25/2025 2:11 PM EDT) Narrative Melvin June DPM - 04/25/2025 2:11 PM EDT Melvin June DPM 04/25/2025 2:38 PM Additional Injections: R subtalar joint for 04/25/2025 2:11 PM The procedure site was prepped in the usual sterile fashion. Site: R subtalar joint Medications: 10 mg triamcinolone acetonide 10 mg/mL Anesthetics: 1 mL BUPivacaine (PF) 0.5 % (5 mg/mL) Outcome: tolerated well, no immediate complications Post-injection instructions were reviewed with the patient and the patient voiced understanding of these instructions. Informed Consent Consent Obtained: Verbal [place] Protocol A moment to CARE was completed. SIGN IN Personnel directly involved with the procedure wore the appropriate PPE. Special Equipment: N/A Patient/Surrogate Stated/Verified: Patient name, Date of , Relevant allergies and Intended procedure TIME OUT Relevant labs, photos, and/or imaging studies have been reviewed. Intended patient and procedure match source documents. Consent obtained and matches the intended procedure. Correct side/site marked and visible. Medications required for procedure verified. No fire risk assessment and interventions applicable. No implant(s) inserted. SIGN OUT No specimen collected. All instruments, equipment, possible retained foreign bodies accounted for. The post-procedure POC has been communicated to the patient or surrogate. No post-procedure POC communication to the patient's multidisciplinary team (including the bedside nurse for hospitalized patients) applicable. Melvin June DPM PROCEDURE Final Result from Last 3 Months Insurance BLUE CARD PPO OOS [employer] Care Teams Retail Associate Relationship Specialty Start Date End Date Monique Razo CNP [address] [place], [place] [id number] PCP - General Internal Medicine 12/17/24
== END 2025-06-14 09:29 | disposition home or self-care (01) ==
LOC: RAD 09:32
PROVIDERS: PCP Nurse Practitioner Family; Visit Provider Podiatrist Foot & Ankle Surgery
DX: M25.571 Pain in right ankle and joints of right foot (principal)
CPT/HCPCS: 73610

== ENCOUNTER 2025-06-21 15:52 | Outpatient (RCR) | payer BC, SELFPAY | END 2025-08-21 09:10 | disposition home or self-care (01) | LOC: PT 15:52 | PROVIDERS: PCP Nurse Practitioner Family; Visit Provider Podiatrist Foot & Ankle Surgery | DX: M25.571 Pain in right ankle and joints of right foot (principal) | CPT/HCPCS: 97014; 97035; 97110; 97113; 97140; 97161 ==

== ENCOUNTER 2025-07-11 22:36 | Emergency (ER) | payer BC, SELFPAY ==
--- OUTSIDE RECORDS SUMMARY | 2024-12-21 10:30 | XMS_ITS ---
Author Organization [facility] es Address [address] [place] [address] Care Team Providers Care Beer Maker Name Role Phone Reinaldo Burns Primary Care Provider Lizzette Jones REASON FOR VISIT FILLING Encounters Encounter Location Date Provider Diagnosis [place] [address] [place] [address] 12/21/2024 Lizzette Montoya Plan Of Treatment Next Appt Details Provider Name:Peter Ascencio, 1 04:30:00 PM, [address], [place], [address], Provider Name:Mey Duong , 09/12/2025 03:15:00 PM, [address] [place], [address], Progress Notes * HECTOR ROCHEB:1990 ([age] yo F)Acc No.[id number]:12/21/2024 Patient: Lewis NOEL FREEMAN Provider: Joseph MONTOYA DDS :1990 A ge:34 Y S ex:Female Date:12/21/2024 Address:[address] [place], [place] [phone] Pcp:Reinaldo Burns Subjective: * Chief Complaints: * 1 . FILLING. * Medical History: Objective: * Vitals: Assessment: Plan: * Treatment: * Images: * Electronic signature of Radha Montoya DDS on 07/11/2025 at 10:42 PM EDT Sign off status: Pending * Provider: Joseph MONTOYA DDS Date: 0 12/21/2024 Generated for Jonnie leonard/Estella/Steven on: 0 07/11/2025 10:42 PM EDT
--- OUTSIDE RECORDS SUMMARY | 2025-03-04 05:20 | XMS_ITS ---
Author Organization [facility] Address [address] [place] [address] Care Team Providers Care Beer Coil Cleaner Name Role Phone Gaurav Snyder [facility] [phone] REASON FOR VISIT right shoulder recheck - dos 11/05 Encounters Encounter Location Date Provider Diagnosis [facility] [facility] [address] [place] [address] 03/04/2025 Gaurav Snyder Plan Of Treatment No Information Progress Notes * IVAN ROCHEGABRIELB:1990 ([age] yo F)Acc No.[id number]:03/04/2025 Progress Notes Patient: NOEL PAZ Provider: Spencer Snyder MD :1990 A ge:34 Y S ex:Female Date:03/04/2025 Address:[address] [place], [place] [id number] Subjective: * Chief Complaints: * 1 . Right shoulder recheck - dos 11/05. * Medical History: Objective: * Vitals: Assessment: Plan: * Treatment: Forms: * Images: * Electronic signature of Chay Snyder MD on 07/11/2025 at 10:42 PM EDT Sign off status: Pending * Provider: Spencer Snyder MD Date: 0 03/04/2025 Generated for Jonnie leonard/Estella/eTlokeshitting on: 0 07/11/2025 10:42 PM EDT
--- OUTSIDE RECORDS SUMMARY | 2025-05-15 10:40 | XMS_ITS ---
Author Organization [facility] Address [address] [place] [address] Care Team Providers Care Adz Worker Name Role Phone Reinaldo Burns Primary Care Provider [phone] Lizzette Jones Unavailable [phone] Tina Carrasco Unavailable [phone] REASON FOR VISIT FILLING Encounters Encounter Location Date Provider Diagnosis [facility] [address] [place] [address] 05/15/2025 Tina Carrasco Plan Of Treatment Next Appt Details Provider Name:Peter Ascencio, 1 04:30:00 PM, [address] [place], [address], Provider Name:Mey Duong , 09/12/2025 03:15:00 PM, [address] [place], [address], Progress Notes * HECTOR ROCHEB:1990 ([age] yo F)Acc No.[id number]:05/15/2025 Patient: Lewis NOEL FREEMAN Provider: Rogers Carrasco :1990 A ge:34 Y S ex:Female Date:05/15/2025 Address:[address] [place], [place] [id number] Pcp:Reinaldo Burns Subjective: * Chief Complaints: * 1 . FILLING. * Medical History: Objective: * Vitals: Assessment: Plan: * Treatment: * Images: * Electronic signature of Bhavin Carrasco DMD on 07/11/2025 at 10:41 PM EDT Sign off status: Pending * Provider: Rogers Carrasco Date: 0 05/15/2025 Generated for Jonnie leonard/Estella/Steven on: 0 07/11/2025 10:41 PM EDT
--- OUTSIDE RECORDS SUMMARY | 2025-06-20 11:30 | XMS_ITS ---
Author Organization The [facility] in [place] Address [address] [place] [address] Care Team Providers Care In File Operator Name Role Phone Monique Razo Primary Care Provider REASON FOR VISIT hosp f/u Medications Medication SIG (Take, Route, Frequency, Duration) Notes Start Date End Date Status Natural Vitamin D-3 125 MCG (5000 UT) TAKE 1 TABLET BY MOUTH EVERY DAY FOR 30 DAYS for 90 Unknown Omeprazole 20 MG TAKE 1 CAPSULE BY MO UTH EVERY DAY for 90 Unknown OneTouch Delica Plus [id number] - USE TO TEST BLOOD SUGAR ONCE EVERY MORNING for 90 Unknown OneTouch Ultra - USE 1 STRIP TO TEST FASTING BLOOD SUGAR ONCE EVERY MORNING for 90 Unknown traZODone HCl 100 MG TAKE 1 TABLET BY MO UTH EVERYDAY AT BEDTIME NEEDED for 90 days Unknown Escitalopram Oxalate 20 MG 1/2 tablet fo r the first week then 1 tablet Orally Once a day for 90 days Unknown Ferrous Sulfate 325 (65 Fe) MG 1 tablet Orally Three times a Week for 30 days Unknown Dexcom G7 Sensor - as directed for 28 days 024 Unknown glipiZIDE 5 MG one tablet po BID fo r 90 days Unknown metFORMIN HCl 500 MG TAKE 1 TABLET BY MO UTH TWICE A DAY WITH A MEAL FOR 30 DAYS for 90 Unknown Dexcom G7 Camera Systems Engineer - USE DIRECTED for 30 Unknown Encounters Encounter Location Date Provider Diagnosis [facility] [address] [place] [address] 06/20/2025 Monqiue Razo Plan Of Treatment Next Appt Details Provider Name:Monique rutledge, 07/22/2025 04:00:00 PM, [address] [place], [address], Provider Name:Monique Palmer Saw rutledge, 10/07/2025 04:15:00 PM, [address] [place], [address], Progress Notes * Kyung ROCHE LDOB:1990 (35 yo F)Acc No.[id number]:06/20/2025 UNLOCKED PROGRESS NOTE Progress Note Patient: Kyung PAZ Provider: Cristine Razo ([facility]), BILL COLLECTOR :1990 A ge:34 Y S ex:Female Date:06/20/2025 Address:[address] [place], [place] [address] Check In:03:28 PM EST Subjective: * Chief Complaints: * 1 . Hosp f/u. * HPI: G eneral: ER, CP and had chest pain. * Medical History: * Medications: U nknown Dexcom G7 Camera Systems Engineer(Continuous Glucose Camera Systems Engineer) - Device USE DIRECTED , Unknown Dexcom G7 Sensor(Continuous Glucose Sensor) - Miscellaneous as directed , Unknown Escitalopram Oxalate 20 MG Tablet 1/2 tablet for the first week then 1 tablet Orally Once a day , Unknown Ferrous Sulfate 325 (65 Fe) MG Tablet 1 tablet Orally Three times a Week , Unknown glipiZIDE 5 MG Tablet one tablet po BID , Unknown metFORMIN HCl 500 MG Tablet TAKE 1 TABLET BY MOUTH TWICE A DAY WITH A MEAL FOR 30 DAYS , Unknown Natural Vitamin D-3(Cholecalciferol) 125 MCG (5000 UT) Tablet TAKE 1 TABLET BY MOUTH EVERY DAY FOR 30 DAYS , Unknown Omeprazole 20 MG Capsule Delayed Release TAKE 1 CAPSULE BY MOUTH EVERY DAY , Unknown OneTouch Delica Plus Nthghl31N(Lancets) - Miscellaneous USE TO TEST BLOOD SUGAR ONCE EVERY MORNING , Unknown OneTouch Ultra(Glucose Blood) - Strip USE 1 STRIP TO TEST FASTING BLOOD SUGAR ONCE EVERY MORNING , Unknown traZODone HCl 100 MG Tablet TAKE 1 TABLET BY MOUTH EVERYDAY AT BEDTIME NEEDED Objective: * Vitals: Assessment: Plan: * Treatment: * * Electronic signature of Kandis Joy , DEPUTY K 9, LANGUAGE ASSISTANT.BILL COLLECTOR.[id number] on 07/11/2025 at 10:43 PM EDT Sign off status: Pending Visit Status: C ANC (Cancelled) * Provider: Cristine Razo ([facility]), BILL COLLECTOR Date: 0 06/20/2025 Generated for Jonnie leonard/Estella/Felizsmitting on: 0 07/11/2025 10:43 PM EDT History and Physical Notes * HPI (History of Present Illness) Category Sub-Category Detail Notes Category Not es General ER, CP and had chest pain
--- OUTSIDE RECORDS SUMMARY | 2025-06-20 11:30 | XMS_ITS ---
Author Organization [facility] in [place] Address [address] [place] [address] Care Team Providers Care Electrical Equipment Tester Name Role Phone Monique Razo Primary Care Provider [phone] Allergies Allergen (clinical drug ingredient) Drug/Non Drug Allergy documented on EMR Reaction Allergy Type Onset Date Status Substance with sulfonamide structure and antibacterial mechanism of action (substance) Sulfa Antibiotics rash/hives Drug Allergy Active REASON FOR VISIT f/u [facility] - Elevated heart pressure due to phentermine- LV enlarged from sleep apnea,Wants to discuss GLP1 Medications Medication SIG (Take, Route, Frequency, Duration) Notes Start Date End Date Status Natural Vitamin D-3 125 MCG (5000 UT) TAKE 1 TABLET BY MOUTH EVERY DAY FOR 30 DAYS for 90 Active OneTouch Ultra - USE 1 STRIP TO TEST FASTING BLOOD SUGAR ONCE EVERY MORNING for 90 Active traZODone HCl 100 MG TAKE 1 TABLET BY MO UTH EVERYDAY AT BEDTIME NEEDED for 90 days Active Omeprazole 20 MG TAKE 1 CAPSULE BY MOUTH EVERY DAY for 90 Active OneTouch Delica Plus Kypsbw21F - USE TO TEST BLOOD SUGAR ONCE EVERY MORNING for 90 Active Mounjaro 2.5 MG/0.5ML as directed Subcutaneous weekly for 28 days call for next dose 06/20/2025 Active glipiZIDE 5 MG one tablet po BID fo r 90 days Active metFORMIN HCl 500 MG TAKE 1 TABLET BY MO UTH TWICE A DAY WITH A MEAL FOR 30 DAYS for 90 Active Escitalopram Oxalate 20 MG 1/2 tablet for the first week then 1 tablet Orally Once a day for 90 days Active Ferrous Sulfate 325 (65 Fe) MG 1 tablet Orally Three times a Week for 30 days Active Dexcom G7 Thresher Broomcorn - USE DIRECTED for 30 Active Dexcom G7 Sensor - as directed for 28 days 09/20/2024 Active Social History Tobacco Use: Social History Observation Description Date Details (start date - stop date) Never Smoker NA - NA Tobacco Use/Smoking Question Answer Notes Patient is a nonsmoker Problems Problem Type SNOMED Code ICD Code Onset Dates Problem Status W/U Status Risk Notes Problem Obstructive sleep apnea syndrome (18640622) AQUILES (obstructiv e sleep apnea) (G47.33) Active confirmed Vital Signs Weight 342.2 lbs 06/20/2025 Height 61 in 06/20/2025 Blood pressure systolic 134 mm Hg 06/20/20 25 Blood pressure diastolic 72 mm Hg 025 BMI 64.65 kg/m2 06/20/2025 Encounters Encounter Location Date Provider Diagnosis [facility] [address] [place] [address] 06/20/2025 Monique Razo Type 2 diabetes mellitus with hyperglycemia E11.65 ; Class 3 obesity E66.01 and AQUILES (obstructive sleep apnea) G47.33 Assessments Encounter Date Diagnosis (ICD Code) Assessment Notes Treatment Notes Treatment Clinical Notes Section Notes 06/20/2025 Type 2 diabetes mellitus with hyperglycemia (ICD-10 - E11.65) 06/20/2025 Class 3 obesity (ICD-10 - E66.01) work on diet Mounjaro? 06/20/2025 AQUILES (obstructive sleep apnea) (ICD-10 - G47.33) MOunjaro? 06/20/2025 Other fu cardiology as scheduled Plan Of Treatment Medication Medication Name Sig Start Date Stop Date Notes Mounjaro 2.5 MG/0.5ML as directed Subcut aneous weekly for 28 days 06/20/2025 call for next dose Treatment Notes Assessment Notes Class 3 obesity work on diet Mounjaro? AQUILES (obstructive sleep apnea) MOunjaro? Other fu cardiology as tenzin eduled Next Appt Details Follow Up: prn, Reason: Provider Name:Monique rutledge, 07/22/2025 04:00:00 PM, [address] [place], [address], Provider Name:Monique rutledge, 10/07/2025 04:15:00 PM, [address] [facility], [place], [address], Progress Notes * Kyung ROCHE LDOB:1990 (34 yo F)Acc No.[id number]:06/20/2025 Progress Note Patient: Kyung PAZ Provider: Cristine Razo ([facility]), HOUSEKEEPING AIDE :1990 A ge:34 Y S ex:Female Date:06/20/2025 Address:[address] [place] [address], [id number] Check In:03:33 PM ESTCheck O ut:03:39 PM EST Subjective: * Chief Complaints: * 1 . f/u [facility] - Elevated heart pressure due to phentermine- LV enlarged from sleep apnea. 2. Wants to discuss GLP1. * HPI: G eneral: was at [place], chest pain sent to [facility] kept 2 nights, told not NM no CP since stop phentermine restart GLP1? couldnt tolerate ozempic has fu cardiology upcoming. * ROS: G eneral/Constitutional: Patient complaining of u nable to lose wt. F ever d enies. H eadache d enies. W eight loss d enies. O phthalmologic: Discharge d enies. E ye Pain d enies. I tching and redness d enies. E NT: Nasal discharge d enies. N enedelia congestion d enies.?Sore throat d enies. C ardiovascular: Chest tightness/ heavy pressure d enies. R apid heart rate d enies. S welling of extremities d enies. C hest pain d enies. ? R espiratory: Productive cough d enies. C hest pain d enies. C ough d enies. S hortness of breath d enies. W heezing d enies. ? G astrointestinal: Abdominal pain d enies. C onstipation d enies. D ecreased appetite d enies. D iarrhea d enies. N ausea d enies. V omiting?denies. G enitourinary: Urinary incontinence d enies. P ainful urination d enies. M usculoskeletal: Back pain d enies. N zoltan pain d enies. M uscle aches d enies. S kin: Rash d enies. S kin lesion(s) d enies. ? 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), including pelvic girdle Modified On:03/30/2024 Status:confirmed M76.822 Posterior tibial ten dinitis, left leg Modified On:03/30/2024U Status:confirmed M24.576 Contracture, unspeci fied foot Modified On:03/30/2024 Status:confirmed H60.92 External otitis of l eft ear Modified On:06/12/2024 Status:confirmed E66.01 Class 3 obesity Modified On:10/16/2024 Status:confirmed 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 B pranav(s): alive. S dotty(s): alive, depression, bipolar, mental health issues, diagnosed with Unspecified heart disease. 1 brother(s) , 2 sister(s) . 2 son(s) - healthy. . Children are adopted. * Social History: T obacco Use: T obacco Use/Smoking P atient is a n onsmoker * Medications: T aking Dexcom G7 Thresher Broomcorn(Continuous Glucose Thresher Broomcorn) - Device USE DIRECTED , Taking Dexcom [...] EVERY DAY , Taking OneTouch Delica Plus Gbjnoh93O(Lancets) - Miscellaneous USE TO TEST BLOOD SUGAR [...] rash/hives - Allergy. Objective: * Vitals: W t:342.2lbs, Ht: 61 in, BP:134/72mm Hg, BMI:64.65Index, Ht-cm: 154.94 cm, Wt-k.22 kg. * Examination: G eneral Examinations: GENERAL APPEARANCE: a lert and oriented, in no acute distress, obese. EYES: c onjunctiva normal, sclera non-icteric. NOSE: n ormal external appearance. LUNGS: c lear anteriorly and posteriorly. CARDIO: r egular rate and rhythm, S1, S2 normal. MUSCULOSKELETAL: d ecreased ROM due to body habitus. SKIN: w arm and dry. Assessment: * Assessment: 1. T ype 2 diabetes mellitus with hyperglycemia - E11.65 (Primary) 2 . C lass 3 obesity - E66.01 3 . O SA (obstructive sleep apnea) - G47.33 ? Plan: * Treatment: 2. C lass 3 obesity Notes: work on diet Mounjaro? 3. O SA (obstructive sleep apnea) Notes: MOunjaro? 4. O thers Notes: fu cardiology as scheduled * Preventive Medicine: Screenings/Counseling: B NM ACTION PLAN Above Normal BMI Follow-up D ietary management education, guidance, and counseling * Follow Up: p rn * * Electronically signed by Cindi Razo , GALE, MERCHANDISE ADJUSTMENT CLERK.HOUSEKEEPING AIDE.[id number] on 06/21/2025 at 11:53 AM EDT Sign off status: Completed Visit Status: C HK (Check Out) true * Provider: Cristine Razo ([facility]), HOUSEKEEPING AIDE Date: 06/20/2025 Generated for Ramonai ng/Cliveg/eTransmitting on: 0 07/11/2025 10:42 PM EDT History and Physical Notes * HPI (History of Present Illness) Category Sub-Category Detail Notes Category Not es General [facility] [place], told not [place] no CP since stop phentermine restart GLP1? couldnt tolerate ozempic has fu cardiology upcoming Examination Category Sub-Category Detail Notes Category Not es General Examinations GENERAL APPEARANCE: alert a nd oriented, in no acute distress, obese EYES: conjunctiva normal, sclera non-icteric EARS: NOSE: normal external appe arance THROAT: CARDIO: regular rate and rhy thm, S1, S2 normal LUNGS: clear anteriorly and posteriorly ABDOMEN: SKIN: warm and dry BACK: MUSCULOSKELETAL: decreased ROM due to body habitus LYMPH NODES:
--- OUTSIDE RECORDS SUMMARY | 2025-07-02 12:15 | XMS_ITS ---
Author Organization [facility] in [place] Address [address] [place] [address] Care Team Providers Care Center Maker Hand Name Role Phone Moinque Razo Primary Care Provider Allergies Allergen (clinical drug ingredient) Drug/Non Drug Allergy documented on EMR Reaction Allergy Type Onset Date Status Substance with sulfonamide structure and antibacterial mechanism of action (substance) Sulfa Antibiotics rash/hives Drug Allergy Active REASON FOR VISIT Mounjaro week 2 Medications Medication SIG (Take, Route, Frequency, Duration) Notes Start Date End Date Status Natural Vitamin D-3 125 MCG (5000 UT) TAKE 1 TABLET BY MOUTH EVERY DAY FOR 30 DAYS for 90 Active Omeprazole 20 MG TAKE 1 CAPSULE BY MOUTH EVERY DAY for 90 Active OneTouch Delica Plus [id number] - USE TO TEST BLOOD SUGAR ONCE EVERY MORNING for 90 Active OneTouch Ultra - USE 1 STRIP TO TEST FASTING BLOOD SUGAR ONCE EVERY MORNING for 90 Active traZODone HCl 100 MG TAKE 1 TABLET BY [facility] EVERYDAY AT BEDTIME NEEDED for 90 days Active Ferrous Sulfate 325 (65 Fe) MG 1 tablet Orally Three times a Week for 30 days Active glipiZIDE 5 MG one tablet po BID fo r 90 days Active metFORMIN HCl 500 MG TAKE 1 TABLET BY [facility] TWICE A DAY WITH A MEAL FOR 30 DAYS for 90 Active Mounjaro 2.5 MG/0.5ML as directed Subcutaneous weekly for 28 days call for next dose 06/20/2025 Active Escitalopram Oxalate 20 MG 1/2 tablet for the first week then 1 tablet Orally Once a day for 90 days Active Dexcom G7 Marketing Development Representative - USE DIRECTED for 30 Active Dexcom G7 Sensor - as directed for 28 days 09/20/2024 Active Social History Tobacco Use: Social History Observation Description Date Details (start date - stop date) Never Smoker NA - NA Tobacco Use/Smoking Question Answer Notes Patient is a nonsmoker Vital Signs Weight 340.6 lbs 07/02/2025 Height 61 in 07/02/2025 Blood pressure systolic 132 mm Hg 07/02/20 25 Blood pressure diastolic 78 mm Hg 025 BMI 64.35 kg/m2 07/02/2025 Encounters Encounter Location Date Provider Diagnosis [facility] [address] [place] [address] 07/02/2025 Monique Whitleymer Class 3 obesity E66. 01 and Type 2 diabetes mellitus with hyperglycemia E11.65 Assessments Encounter Date Diagnosis (ICD Code) Assessment Notes Treatment Notes Treatment Clinical Notes Section Notes 07/02/2025 Class 3 obesity (ICD-10 - E66.01) continue bella doss 3 m work on diet 07/02/2025 Type 2 diabetes mellitus with hyperglycemia (ICD-10 - E11.65) continue bella doss 3m Patient educated on Diabetic diet... Reviewed Hypoglycemia / Hyperglycemia action plan: Instructed to call office if blood sugar above 350 or below 65 consecutively. Reviewed with patient the remote computer terminal operator effects of Diabetes Mellitus on the body and organs. Instructed patient to check feet daily, wear socks daily, wear proper fitting shoes, lotion feet at night with no lotion between toes, powder between toes. Follow-up with podiatry Q6M and PRN. No toenail clipping except by Podiatry. Please bring glucase meter and record to each appointment, Please feel free to call if you have questions or concerns about management or condition. Please call 1 week before medications are depleted for refills. If you are instructed to be fasting for procedure or testing, please call for dosing instructions. Plan Of Treatment Treatment Notes Assessment Notes Class 3 obesity continue bella doss 3 m work on diet Type 2 diabetes mellitus with hyperglyce afshan continue bella doss 3m Patient educated on Diabetic diet... Reviewed Hypoglycemia / Hyperglycemia action plan: Instructed to call office if blood sugar above 350 or below 65 consecutively. Reviewed with patient the remote computer terminal operator effects of Diabetes Mellitus on the body and organs. Instructed patient to check feet daily, wear socks daily, wear proper fitting shoes, lotion feet at night with no lotion between toes, powder between toes. Follow-up with podiatry Q6M and PRN. No toenail clipping except by Podiatry. Please bring glucase meter and record to each appointment, Please feel free to call if you have questions or concerns about management or condition. Please call 1 week before medications are depleted for refills. If you are instructed to be fasting for procedure or testing, please call for dosing instructions. Next Appt Details Follow Up: 3 Months,prn, Esparto son: Provider Name:Monique Spencer rutledge, 07/22/2025 04:00:00 PM, [address] [facility], [place], [address], Provider Name:Monique Spencer rutledge, 10/07/2025 04:15:00 PM, [address] [facility], [place], [address], Progress Notes * Kyung ROCHE LDOB:1990 (34 yo F)Acc No.[id number]:07/02/2025 Progress Note Patient: Kyung PAZ Provider: Cristine Razo ([facility]), OFFICE SERVICES COORDINATOR :1990 A ge:34 Y S ex:Female Date:07/02/2025 Address:[address] [place], [place] [id number] Check In:03:54 PM ESTCheck O ut:04:35 PM EST Subjective: * Chief Complaints: * 1 . Mounjaro week 2. * HPI: G eneral: no SE so far, no wt loss yet BS have been good. * ROS: G eneral/Constitutional: Fever d enies. H eadache d enies. W eight loss?denies. O phthalmologic: Discharge d enies. 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), including pelvic girdle Modified On:03/30/2024U Status:confirmed M76.822 Posterior tibial ten dinitis, left leg Modified On:03/30/2024U Status:confirmed M24.576 Contracture, unspeci fied foot Modified On:03/30/2024U Status:confirmed H60.92 External otitis of l eft ear Modified On:06/12/2024U Status:confirmed E66.01 Class 3 obesity Modified On:10/16/2024U Status:confirmed 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 Modified On:11/22/2024U Status:confirmed K21.9 GERD (gastroesophage al reflux disease) Modified On:12/10/2024U Status:confirmed G47.33 AQUILES (obstructive sle ep apnea) Modified On:06/20/2025W/U Status:confirmed * Medical History: V itamin D [...] onsmoker * Medications: T aking Dexcom G7 Marketing Development Representative(Continuous Glucose Marketing Development Representative) - Device USE DIRECTED , Taking Dexcom [...] A MEAL FOR 30 DAYS , Taking Mounjaro(Tirzepatide) 2.5 MG/0.5ML Solution Auto-injector as directed Subcutaneous weekly , Notes to Pharmacist: call for next dose, Taking Natural Vitamin D-3(Cholecalciferol) 125 MCG (5000 UT) Tablet TAKE 1 TABLET BY MOUTH EVERY DAY FOR 30 DAYS , Taking Omeprazole 20 MG Capsule Delayed Release TAKE 1 CAPSULE BY MOUTH EVERY DAY , Taking OneTouch Delica Plus Eboszw84B(Lancets) - Miscellaneous USE TO TEST BLOOD SUGAR [...] rash/hives - Allergy. Objective: * Vitals: W t:340.6lbs, Ht: 61 in, BP:132/78mm Hg, BMI:64.35Index, Ht-cm: 154.94 cm, Wt-k.5 kg. * Examination: G eneral Examinations: GENERAL APPEARANCE: a lert and oriented, in no acute distress,, morbidly obese. EYES: c onjunctiva normal, sclera non-icteric. NOSE: n ormal external appearance. LUNGS: c lear to auscultation bilaterally. CARDIO: r egular rate and rhythm, S1, S2 normal. MUSCULOSKELETAL: d ecreased ROM due to body habitus. SKIN: w arm and dry. Assessment: * Assessment: 1. C lass 3 obesity - E66.01 (Primary) 2 . T ype 2 diabetes mellitus with hyperglycemia - E11.65 Plan: * Treatment: 2. T ype 2 diabetes mellitus with hyperglycemia Notes: continue mounjaro fu 3m Patient educated on Diabetic diet... Reviewed Hypoglycemia / Hyperglycemia action plan: Instructed to call office if blood sugar above 350 or below 65 consecutively. Reviewed with patient the assisted effects of Diabetes Mellitus on the body and organs. Instructed patient to check feet daily, wear socks daily, wear proper fitting shoes, lotion feet at night with no lotion between toes, powder between toes. Follow-up with podiatry Q6M and PRN. No toenail clipping except by Podiatry. Please bring glucase meter and record to each appointment, Please feel free to call if you have questions or concerns about management or condition. Please call 1 week before medications are depleted for refills. If you are instructed to be fasting for procedure or testing, please call for dosing instructions. * Preventive Medicine: Screenings/Counseling: B NH ACTION PLAN Above Normal BMI Follow-up D ietary management education, guidance, and counseling * Follow Up: 3 Months,prn * * Electronically signed by Cindi Razo , GALE, AUTOMOBILE BRAKES BONDER.OFFICE SERVICES COORDINATOR.[id number] on 07/04/2025 at 10:06 AM EDT Sign off status: Completed Visit Status: C HK (Check Out) true * Provider: Cristine Razo (LAURITA), OFFICE SERVICES COORDINATOR Date: 0 07/02/2025 Generated for Jonnie leonard/Estella/Lucioitting on: 07/11/2025 10:42 PM EDT History and Physical Notes * HPI (History of Present Illness) Category Sub-Category Detail Notes Category Not es General no SE so far, no wt loss yet BS have been good Examination Category Sub-Category Detail Notes Category Not es General Examinations GENERAL APPEARANCE: alert a nd oriented, in no acute distress,, morbidly obese EYES: conjunctiva normal, sclera non-icteric EARS: NOSE: normal external appe arance THROAT: CARDIO: regular rate and rhy thm, S1, S2 normal LUNGS: clear to auscultatio n bilaterally ABDOMEN: SKIN: warm and dry BACK: MUSCULOSKELETAL: decreased ROM due to body habitus LYMPH NODES:
[2025-07-11] VITALS (9 sets, daily range): BP systolic 124–140; BP diastolic 66–79; PULSE 76–87; TEMP 36.9; O2SAT 93–96; BMI 62.2
--- OUTSIDE RECORDS SUMMARY | 2025-07-11 22:41 | XMS_ITS | Encounter Summary ---
Author Organization [facility] Address [address] [place] [address] Care Team Providers Care Drosser Name Role Phone Monique Razo MD Unavailable [phone] Monique Razo MD Unavailable [phone] Erich Garcia MD Primary Care Provider [phone] Jaime Woods DO Unavailable [phone] Encounter Details Date Type Department Care Team (Late st Contact Info) Description 09/13/2024 Orders Only [facility] [address] [place] [address] Pato Koehler DPM [address] [address] Social History Tobacco Use Types Packs/Day Years [...] as of this encounter Plan of Treatment Upcoming Encounters Date Type Department Care Team (Late Contact Info) Description 07/24/2025 3:40 PM EDT Office Visit [facility] [address] [place] [address] Pato Koehler DPM [address] [address] documented as of this encounter Procedures Procedure Name Priority Date/Time Associated Diagnosis Comments PATHOLOGY REPORT Routine 09/06/2024 11:25 AM EDT documented in this encounter Results * Pathology Report (09/06/2024 11:25 AM EDT) Other Pato Koehler DPM LAB PATHOLOGY ORDERABLES Fi nal Result documented in this encounter Visit Diagnoses Not on filedocumented in this encounter Care Teams Drosser Relationship Specialty Start Date End Date Erich Garcia MD [address] [place] [address] PCP - General Family Medicine 07/24/24 Monique Razo MD [address] [place] [address] Referring Physician Family Medicine 03/29/24 Monique Razo MD [address] [place] [address] Referring Physician Family Medicine 07/24/24 Jaime Woods DO [address] [place] [address] Otolaryngology 07/24/24 documented as of this encounter
--- OUTSIDE RECORDS SUMMARY | 2025-07-11 22:41 | XMS_ITS | Encounter Summary ---
Author Organization [facility] Address [address] [facility] [place] [address] Care Team Providers Care Global Regulatory Affairs Manager Name Role Phone Monique Razo MD Unavailable [phone] Monique Razo MD Unavailable [phone] Erich Garcia MD Primary Care Provider [phone] Jaime Woods DO Unavailable [phone] Encounter Details Date Type Department Care Team (Late st Contact Info) Description 09/05/2024 Abstract [facility] [address] [place] [address] Pato Koehler DPM [address] [address] Social History Tobacco Use Types [...] Encounters Date Type Department Care Team (Late st Contact Info) Description 07/24/2025 3:40 PM EDT Office Visit [facility] [address] [place] [address] Pato Koehler DPM [address] [address] documented as of this encounter Visit Diagnoses Not on filedocumented in this encounter Care Teams Global Regulatory Affairs Manager Relationship Specialty Start Date End Date Erich Garcia MD [address] [place] [address] PCP - General Family Medicine 07/24/24 Monique Razo MD [address] [place] [address] Referring Physician Family Medicine 03/29/24 Monique Razo MD [address] [place] [address] Referring Physician Family Medicine 07/24/24 Jaime Woods DO [address] [place] [address] Otolaryngology 07/24/24 documented as of this encounter
--- OUTSIDE RECORDS SUMMARY | 2025-07-11 22:41 | XMS_ITS | Encounter Summary ---
Author Organization [facility] Address [address] [place] [address] Care Team Providers Care Electrical Mechanical Technician Name Role Phone Monique Razo MD Unavailable [phone] Unallocated, Keily Provider Primary Care Provi anna Monique Razo MD Unavailable [phone] Erich Garcia MD Primary Care Provider [phone] Jaime Woods DO Unavailable [phone] Encounter Details Date Type Department Care Team (Late st Contact Info) Description 05/05/2023 Abstract [facility] [address] [facility] [address] [place] [address] Pato Koehler, DPM [address] [facility] 5 [place] [address] Social History Tobacco Use Types [...] EDT Office Visit [facility] [address] [place] [address] Pato Koehler DPM [address] [id number] documented as of this encounter Visit Diagnoses Not on filedocumented in this encounter Care Teams Electrical Mechanical Technician Relationship Specialty Start Date End Date Unallocated, Noms Provider, [address] [place] [address] PCP - General Family Medicine 03/29/24 07/23/24 Erich Garcia MD [address] [place] [address] PCP - General Family Medicine 07/24/24 Monique Razo MD [address] [place] [address] Referring Physician Family Medicine 03/29/24 Monique Razo MD [address] [place] [address] Referring Physician Family Medicine 07/24/24 Jaime Woods DO [address] [place] [address] Otolaryngology 07/24/24 documented as of this encounter
--- OUTSIDE RECORDS SUMMARY | 2025-07-11 22:42 | XMS_ITS | Clinical Summary ---
Author Organization [facility] Address [address] [facility] [place] [address] Care Team Providers Care Manager Fire Name Role Phone Monique Razo MD Unavailable Monique Razo MD Unavailable [phone] Erich Garcia MD Primary Care Provider [phone] Jaime Woods DO Unavailable [phone] Allergies Active Allergy Reactions Criticality Noted Date [...] 4 Diabetes 07/21/2024 Vitamin D deficiency 07/21/2024 Immunizations Immunization Administration Dates Next Due DTP [...] 03/21/2025 2:16 PM EDT Plan of Treatment Upcoming Encounters Date Type Department Care Team (Late st Contact Info) Description 07/24/2025 3:40 PM EDT Office Visit [facility] [address] [place] [address] Pato Koehler DPM [address] [address] Insurance Care Teams Manager Fire Relationship Specialty Start Date End Date Erich Garcia MD [address] [place] [address] PCP - General Family Medicine 07/24/24 Monique Razo MD [address] [place] [address] Referring Physician Family Medicine 03/29/24 Monique Razo MD [address] [place], [place] [phone] Referring Physician Family Medicine 07/24/24 Jaime Woods DO [address] [place] [address] Otolaryngology 07/24/24
--- OUTSIDE RECORDS SUMMARY | 2025-07-11 22:42 | XMS_ITS | Encounter Summary ---
Author Organization [facility] Address [address] [place] [address] Care Team Providers Care Mobile Solutions Architect Name Role Phone DanniMonique Spencer BONILLA Primary Care Provider + Source Comments In the event this information is protected by the Federal Confidentiality of Alcohol and Drug AbusePatient Records regulations: The Federal rules restrict any use of the information to criminally investigate or prosecute any alcohol or drug abuse patient.[facility] Reason for Visit * Reason Comments Appointment Encounter Details Date Type Department Care Team (Late st Contact Info) Description 06/07/2025 Telephone Orth [facility] [place] [address] [place] [address] Melvin June DPM [address] [place], [place] [phone] Appointment Social History Tobacco Use Types Packs/Day [...] is lower risk 8 12/12/2024 Data from: https://www.neighborhoodatlas.[facility]/. Last address used for calculation [address] [...] calling: self Call patient at: at home [phone] (home) [phone] (cell) Was an appointment scheduled: No Closing statement: Results or non-symptom based questions: Thank you for calling [facility], your call will be returned within the next business day. Kelly Goodman documented in this encounter Plan of Treatment Not on file documented as of this encounter Visit Diagnoses Not on filedocumented in this encounter Care Teams Mobile Solutions Architect Relationship Specialty Start Date End Date Monique Razo CNP [address] [place] [address] PCP - General Internal Medicine 12/17/24 documented as of this encounter
--- OUTSIDE RECORDS SUMMARY | 2025-07-11 22:42 | XMS_ITS | Encounter Summary ---
Author Organization [facility] Address [address] [place] [address] Care Team Providers Care Chip Machine Operator Name Role Phone Monique Razo MD Unavailable [phone] Unallocated, Keily Provider Primary Care Provi anna Monique Razo MD Unavailable [phone] Erich Garcia MD Primary Care Provider [phone] Jaime Woods DO Unavailable [phone] Encounter Details Date Type Department Care Team (Late st Contact Info) Description 04/20/2024 Abstract [facility] [address] [facility] 120 [place] [address] Pato Koehler, DPM [address] [facility] 5 [place] [address] Social History Tobacco Use Types [...] EDT Office Visit [facility] [address] [place] [address] Pato Koehler, SHITAL [address] [address] documented as of this encounter Visit Diagnoses Not on filedocumented in this encounter Care Teams Chip Machine Operator Relationship Specialty Start Date End Date Unallocated, Noms Provider, [address] [place] [address] PCP - General Family Medicine 03/29/24 07/23/24 Erich Garcia MD [address] [place] [address] PCP - General Family Medicine 07/24/24 Monique Razo MD [address] [place] [address] Referring Physician Family Medicine 03/29/24 Monique Razo MD [address] [place] [address] Referring Physician Family Medicine 07/24/24 Jaime Woods DO [address] [place] [address] Otolaryngology 07/24/24 documented as of this encounter
--- OUTSIDE RECORDS SUMMARY | 2025-07-11 22:42 | XMS_ITS | Encounter Summary ---
Author Organization [facility] Address [address] [place] [address] Care Team Providers Care Shoe Repairman Name Role Phone DanniMonique Spencer BONILLA Primary Care Provider + Source Comments In the event this information is protected by the Federal Confidentiality of Alcohol and Drug AbusePatient Records regulations: The Federal rules restrict any use of the information to criminally investigate or prosecute any alcohol or drug abuse patient.[facility] Encounter Details Date Type Department Care Team (Late st Contact Info) Description 05/12/2025 Get Medical Advice Orthopaedics [address] [place] [address] [place], D[place] [address] [place], [place] [phone] Still having pain Social History Tobacco Use [...] is lower risk 8 12/12/2024 Data from: https://www.neighborhoodatlas.medicine.[facility]/. Last address used for calculation [address] [employer] 12/12/2024 Comments Unknown Sex and Gender Information Value Date Recorded Sex Assigned at Not on file Legal Sex Female 12:17 PM EDT Gender Identity Not on file Sexual Orientation Not on file documented as of this encounter Plan of Treatment Not on file documented as of this encounter Visit Diagnoses Not on filedocumented in this encounter Care Teams Shoe Repairman Relationship Specialty Start Date End Date Monique Razo CNP [address] [place] [address] PCP - General Internal Medicine 12/17/24 documented as of this encounter
--- OUTSIDE RECORDS SUMMARY | 2025-07-11 22:42 | XMS_ITS | Encounter Summary ---
Author Organization [facility] Address [address] [place] [address] Care Team Providers Care Riveter Helper Name Role Phone Monique Razo MD Unavailable [phone] Unallocated, [facility] Provider Primary Care Provi anna Monique Razo MD Unavailable [phone] Erich Garcia MD Primary Care Provider [phone] Jaime Woods DO Unavailable [phone] Encounter Details Date Type Department Care Team (Late st Contact Info) Description 05/16/2024 External Result Encounter [facility] External Department Unsolicited Pato Koehler, DPM [address] [address] Accessory navicular bone of foot [...] EDT Office Visit [facility] [address] [place] [address] Pato Koehler DPM [address] [address] documented as of this encounter Procedures Procedure Name Priority Date/Time Associated Diagnosis Comments XR FOOT 1-2 VIEWS LEFT 05/16/2024 3:15 PM EDT documented in this encounter Results * XR foot 1 or 2 views left (05/16/2024 3:15 PM EDT) Anatomical Region Laterality Modality Lower Extremities, Foot Left [facility] Imaging 05/16/2024 3:15 PM EDT Impressions 05/16/2024 3:22 PM EDT INTERVAL RESECTION OF OS NAVICULARE. NO ACUTE BONY FINDINGS. Impression dictated by: Leisa Adames M.D.05/16/2024 3:20 PM Dictation Location: [facility] Transcribed By: [facility] 05/16/24 1520 Dictated By: Leisa Adames MD 05/16/24 1515 Signed By: <Electronically signed by MD Leisa Adames in OV> 05/16/24 1520 Narrative 05/16/2024 3:22 PM EDT [facility] Main [place] [address] [place] [address] XRay Report Signed Patient: Kyung Paul MR#: [id number] : 1990 Acct:[id number] Age/Sex: 33 / F ADM Date: 05/16/24 Loc: [place] Room: Type: [facility] Attending Dr: Pato Koehler DPM [...] 2V Procedure Note Radiology, Radiologist, - 05/16/2024 [facility] Main [place] [address] [place] [address] XRay Report Signed Patient: Kyung Paul LMR#: [id number] : 1990Acct:[id number] Age/Sex: 33 / FADM Date: 05/16/24 Loc: [place] Room:Type: [facility] Attending Dr: Pato Koehler DPM [...] Leisa Adames M.D.05/16/2024 3:20 PM Dictation Location: [place] [address] Transcribed By: [facility] 05/16/24 1520 Dictated By: Leisa Adames MD 05/16/24 1515 Signed By: <Electronically signed by MD Leisa Adames in OV> 05/16/24 1520 us Pato Koehler DPM IMG XR PROCEDURES Final Res ult documented in this encounter Visit Diagnoses Diagnosis 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, not elsewhere classified documented in this encounter Care Teams Riveter Helper Relationship Specialty Start Date End Date Unallocated, [facility] Provider, [address] [place], [place] [phone] PCP - General Family Medicine 03/29/24 07/23/24 Erich Garcia MD [address] [place] [address] PCP - General Family Medicine 07/24/24 Monique Razo MD [address] [place] [address] Referring Physician Family Medicine 03/29/24 Monique Razo MD [address] [place] [address] Referring Physician Family Medicine 07/24/24 Jaime Woods DO [address] [place] [address] Otolaryngology 07/24/24 documented as of this encounter
--- OUTSIDE RECORDS SUMMARY | 2025-07-11 22:42 | XMS_ITS | CCD ---
Author Organization [facility] Providers Care Chopper Gun Operator Name Role Phone Monique Dudley Unavailable [...] Attending Unavailable BRIDGETTE ., PA MARCELL Consulting Unavailabl angus Dudley NP-Teresa Amaya Attending Provider LORI Emmanuel Primary Care Provider MONIQUE EMMANUEL Primary Care Physician Pato Avelar Referring Unavailable Pato Avelar Attending Unavailable Pato Avelar Admitting Unavailable SHITAL Avelar Attending Provider PATO AVELAR Attending Unavailable PATO AVELAR Attending Unavailable PATO AVELAR Attending Unavailable PATO AVELAR Attending Unavailable PATO AVELAR Attending Unavailable PATO AVELAR Attending Unavailable Lien LONG, Monique Unavailable Lien LONG, Monique Unavailable Jose LONG, Erich Barraza Primary Care Provider Jaime Camargo DO Unavailable Rodo, DPMadi Johnson Attending Unavailabl e Brown, DPM Pato A Admitting Unavailabl e Brown, DPM Pato A Attending Unavailabl e Brown, DPM Pato A Referring Unavailabl e Brown, DPM Pato A Admitting Unavailabl e Unallocated MD, Noms Provider Primary Care Provi anna Unallocated MD, Noms Provider Primary Care Provi anna ELATTAR, OSAMA Referring Unavailable ELATTAR, OSAMA Referring Unavailable BROWN, PATO A Referring Unavailable ELATTAR, OSAMA Attending Unavailable Unavailable Primary Care Provider Unavailabl e Lien BONILLA, Monique S Primary Care Provider PATO AVELAR Attending Unavailable PATO AVELAR A Attending Unavailable BROWN, PATO Johnson Attending Unavailable JAIME CAMARGO Attending Unavailable LIEN, MONIQUE Referring Unavailable BROWN, PATO A Attending Unavailable BROWN, PATO A Referring Unavailable BROWN, PATO A Attending Unavailable BROWN, PATO A Attending Unavailable BROWN, PATO A Referring Unavailable BROWN, PATO A Attending Unavailable BROWN, PATO A Attending Unavailable BROWN, PATO A Attending Unavailable LIEN, MONIQUE S Primary Care Unavailable SEAN MATA Attending Unavailab le LIEN, MONIQUE S Primary Care Unavailable SEAN MATA Referring Unavailab le SEAN MATA Attending Unavailab le LIEN, MONIQUE S Primary Care Unavailable LIEN, MONIQUE S Primary Care Unavailable SEAN MATA Attending Unavailab le SEAN MATA Admitting Unavailab le SEAN MATA Referring Unavailab le SEAN MATA Attending Unavailab le LIEN, MONIQUE S Primary Care Unavailable LIEN, MONIQUE S Primary Care Unavailable SEAN MATA Referring Unavailab le LIEN, MONIQUE S Primary Care Unavailable LIEN, MONIQUE S Primary Care Unavailable SEAN MATA Referring Unavailab le LIEN, MONIQUE S Primary Care Unavailable LIEN, MONIQUE S Primary Care Unavailable SELF Referring Unavailable ESPERANZA SEAN Sales Attending Unavailab le LIEN, MONIQUE S Primary Care Unavailable SELF Referring Unavailable ESPERANZA, SEAN Sales Attending Unavailab le LIEN, MONIQUE S Primary Care Unavailable SELF Referring Unavailable LIEN, MONIQUE S Primary Care Unavailable SELF Referring Unavailable ESPERANZASEAN Attending Unavailab le LIEN, MONIQUE S Primary Care Unavailable SELF Referring Unavailable LIEN, MONIQUE S Primary Care Unavailable ESPERANZA, SEAN W Attending Unavailab le SELF Referring Unavailable LIEN, MONIQUE S Primary Care Unavailable ESPERANZA SEAN W Referring Unavailab le LIEN, MONIQUE S Primary Care Unavailable LIEN, MONIQUE S Primary Care Unavailable ESPERANZA SEAN Sales Attending Unavailab le LIEN, MONIQUE S Primary Care Unavailable ESPERANZASEAN Referring Unavailab le ESPERANZA, SEAN Sales Attending Unavailab le ESPERANZASEAN Referring Unavailab le Lien MARKER MACHINE-C, Monique Alicia Primary Care Provider [phone] Marek Dennis DO Emergency Provider Neo Mclaughlin MD Admit Provider Neo Mclaughlin MD Attending Provider Maryanne Unger RN Other Provider Unavailable Balaji Cohen MD Other Provider Kvng Carcamo MD Other Provider [phone] Inge Adler MD Attending Provider Inge Adler MD Other Provider Merry Nieves APRN Other Provider Mitch Galaviz MD Other Provider Maryanne Unger Consulting Unavailable Lien, Monique Alicia Primary Care Unavailable Mitch Galaviz Attending Unavailab Neo Cardona Admitting Unavailable Maryanne Unger Consulting Unavailable Balaji Cohen Consulting Unavailable Kvng Carcamo Consulting Unavai Inge Chapman Consulting Unavailable Merry Nieves Consulting Unavailable Allergies Allergy Classification Reported Allergen(s) Allergy Type Date of Onset Reaction(s) Facility (1 source) Egg protein Drug allergy [employer] [facility] [employer] Other (1 source) Sulf-10 Drug allergy [facility] [employer] Other (1 source) Sulfonamides (Antibiotic) Drug allergy (disorder) 3 [facility] (20 sources) Sulfonamides (Antibiotic); Translations: [SULFA (SULFONAMIDE ANTIBIOTICS)] [facility] Egg Derived; Translations: [Egg Derived] Allergy to substance 4 [facility] (5 sources) Sulfonamides (Antibiotic); Translations: [sulfa drugs] Drug allergy [facility] (20 sources) Sulfonamides (Antibiotic) Drug Allergy 4 [facility] Medications Current Medications Medication Drug Class(es) Dates Sig (Normalized) Sig (Original) acetaminophen 325 mg / HYDROcodone bitartrate 5 mg oral tablet (2 sources) Opioid Agonist Start: 08-30-2024 End: 09-04-2024 take 1 tablet by mouth every eight hours as needed for pain HYDROcodone-aceta minophen ([place]) 5-325 MG tablet Indications: Pain Take 1 [...] 5 days 15 tablet 09/07/2024 09/12/2024 Active Blood-Glucose Sensor (Dexcom G7 Sensor) device (4 sources) Start: 02-05-2025 Blood-Glucose Sensor (Dexcom G7 Sensor) device Active EACH .ROUTE .MEDSUPPLY February 05, 2025 12:00am As directed Blood-Glucose Transmitter (Dexcom G6 Transmitter) device (4 sources) Start: 02-05-2025 Blood-Glucose Transmitter (Dexcom G6 Transmitter) device Active EACH .ROUTE .MEDSUPPLY February 05, 2025 12:00am As directed cholecalciferol 0.125 mg oral tablet (20 sources) Vitamin D Start: 01-30-2024 take 1 tablet by mouth once daily Cholecalciferol (Vitamin D3) 125 mcg (5,000 unit) tablet Active 125 MCG PO Daily February 27, 2024 12:00am Complies with drug therapy take 1 tablet by mouth once billy y cholecalciferol (VITAMIN D3) 5,000 unit tab Take 5,000 Units by mouth once daily. Active DEXCOM G6 TRANSMITTER [place] (20 sources) Start: 09-03-2024 DEXCOM G6 TRANSMITTER [place] as directed. 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 G7 REEL HOOKER misc (20 sources) Start: 09-20-2024 DEXCOM G7 RECE IVER 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 09/20/2024 Active DEXCOM G7 SENSOR [place] (20 sources) Start: 12-12-2024 DEXCOM G7 SENS OR [place] 12/12/2024 Active escitalopram 20 mg oral tablet (20 sources) Serotonin Reuptake Inhibitor Start: 06-15-2025 take 1 tablet by mouth once daily Escitalopram Oxalate 20 mg tablet Active 20 MG PO Daily June 15, 2025 12:00am Complies with drug therapy Start: 04-25-2024 End: 02-05-2025 take 1 tablet [...] THEN 1 TABLET ONCE A DAY Active ferrous sulfate 325 mg oral tablet (3 sources) Start: 06-15-2025 take 1 tablet by mouth three times weekly Ferrous Sulfate 325 mg (65 mg iron) tablet Active 325 MG PO .three times a week June 15, 2025 12:00am Complies with drug therapy glipiZIDE 5 mg oral tablet (20 sources) Sulfonylurea Start: 12-06-2024 take 1 tablet by mouth once daily Glipizide 5 mg tablet Active 5 MG PO Daily February 05, 2025 12:00am Complies with drug therapy ketorolac tromethamine 10 mg oral tablet (20 sources) Nonsteroidal Anti-inflammatory Drug, Cyclooxygenase Inhibitor Start: [...] Start: 08-28-2022 take 1 tablet by jose th twice daily Metformin 500 mg tablet Active 500 MG PO Twice daily February 27, 2024 12:00am Complies with drug therapy methylPREDNISolone (5 sources) Corticosteroid Start: 03-07-2025 methylPREDNISolone (Medrol Dospak) 4 MG tablets Indications: Capsulitis of metatarsophalangeal (MTP) joint of right foot Follow schedule on MEDROL PACK package instructions to be used as directed 21 tablet 03/07/2025 Active omeprazole 20 mg delayed release oral capsule (20 sources) Proton Pump Inhibitor Start: 02-27-2024 take 1 capsule by mouth once daily Omeprazole 20 mg capsule,delayed release(DR/EC) Active 20 MG PO Daily February 27, 2024 12:00am Complies with drug therapy promethazine hydrochloride 12.5 mg oral tablet (4 sources) Phenothiazine Start: 12-31-2024 End: 01-10-2025 take 1 tablet by mouth every eight hours as needed promethazine (PHENERGAN) 12.5 mg tablet Indications: Accessory navicular bone of right foot , Post-op pain Take 1 tablet by mouth every 8 hours as needed for up to 10 days. 30 tablet 12/31/2024 01/10/2025 Active Tirzepatide (1 source) Start: 2025 Tirzepatide (Mounjaro) 2.5 mg/0.5 mL pen injector Active 2.5 MG SUBCUT every week 2025 12:00am Complies with drug therapy traZODone hydrochloride 100 mg oral tablet (20 sources) Serotonin Reuptake Inhibitor Start: 10-04-2024 take 1 tablet by mouth once daily at bedtime Trazodone 100 mg tablet Active 100 MG PO Daily at bedtime February 05, 2025 12:00am Complies with drug therapy Start: 05-16-2024 take 100 mg by mouth [...] day at the same time 03/12/2024 Active [place] Sling (3 sources) Start: 02-27-2024 [place] Slin g Active 0 .Route February 27, 2024 12:00am As directed [place] Sling unit (4 sources) Start: 02-27-2024 [place] Slin g unit Active 0 .Route February 27, 2024 12:00am As directed Vitamin D (3 sources) Start: 04-25-2024 Vitamin D Oral , Daily, Refills(s) 0, Prophylaxis Start Date: 04/25/24 Status: Ordered Completed/Discontinued Medications Medication Drug Class(es) Dates Sig (Normalized) Sig (Original) amoxicillin 875 mg / clavulanate 125 mg oral tablet (4 sources) Penicillin-class Antibacterial Start: 02-05-2025 End: 06-15-2025 take 1 tablet by mouth every twelve hours Amoxicillin-Pot Clavulanate 875-125 mg tablet Discontinued 1 TAB PO Every 12 hours 16 09February 05, 2025 12:00am June 15, 2025 2:24am aspirin 325 mg oral tablet (20 sources) Platelet Aggregation Inhibitor, Nonsteroidal Anti-inflammatory Drug Start: 12-31-2024 End: 06-15-2025 Aspirin 325 mg tablet Discontinued MG PO February 05, 2025 12:00am June 15, 2025 2:24am 30 ml bupivacaine hydrochloride 5 mg/ml injection (2 sources) Amide Local Anesthetic Start: 04-25-2025 End: 04-25-2025 BUPivacaine (PF) 0.5 % (5 mg/mL) 1 mL injection Start: 04-25-2025 End: 04-25-2025 1 mL, Injection - FOR ORTHO USE ONLY, ONCE, 1 dose, Starting on Nadya 04/25/25 at 1411, Until Nadya 04/25/25 at 1411 celecoxib 200 mg oral capsule (4 sources) Nonsteroidal Anti-inflammatory Drug Start: 02-05-2025 End: 06-15-2025 Celecoxib 200 mg capsule Discontinued MG PO February 05, 2025 12:00am June 15, 2025 2:24am phentermine hydrochloride 37.5 mg oral tablet (3 sources) Sympathomimetic Amine Anorectic Start: 06-15-2025 End: 06-16-2025 take 1 tablet by mouth once daily Phentermine 37.5 mg tablet Discontinued 37.5 MG PO Daily June 15, 2025 12:00am June 16, 2025 12:28pm triamcinolone acetonide 10 mg/ml injectable suspension (2 sources) Corticosteroid Start: 04-25-2025 End: 04-25-2025 triamcinolone acetonide 10 mg injection (KeNALog 10) Start: 04-25-2025 End: 04-25-2025 10 mg, Injection - FOR ORTHO USE ONLY, ONCE, 1 dose, Starting on Nadya 04/25/25 at 1411, Until Nadya 04/25/25 at 1411 Problems Active Problems Problem Classification Problem Date Documented Date Episodic/Chronic Anxiety disorders (20 sources) Anxiety; Translations: [Anxiety disorder, unspecified] Onset: 4 04-25-2024 Chronic Diabetes mellitus without complication (20 sources) Type 2 diabetes mellitus without complications; Translations: [Diabetes mellitus] Onset: 2 Chronic Disorders of lipid metabolism (4 sources) Pure hyperglyceridemia; Translations: [PURE HYPERGLYCERIDEMIA] Onset: 2 Chronic Esophageal disorders (20 sources) Gastroesophageal reflux disease; Translations: [Gastro-esophageal reflux disease without esophagitis] Onset: 4 04-25-2024 Chronic Fracture of lower limb (4 sources) Stress fracture of right foot; Translations: [Stress fracture, right foot, initial encounter for fracture] 10-04-2024 Episodic Nonspecific chest pain (7 sources) Chest pain; Translations: [Chest pain, unspecified] Onset: 5 06-15-2025 Episodic Nutritional deficiencies (20 sources) Vitamin D deficiency, unspecified; Translations: [Vitamin D deficiency] Onset: 2 04-25-2024 Chronic Osteoarthritis (20 sources) Arthritis of right acromioclavicular joint; Translations: [Primary osteoarthritis, right shoulder] Onset: 5 12-28-2024 Chronic Other acquired deformities (2 sources) Contracture of joint of left ankle; Translations: [Contracture, left ankle] 08-30-2024 Chronic Other acquired deformities (8 sources) Contracture of joint of right ankle; Translations: [Contracture, right ankle] 08-30-2024 Chronic Other congenital anomalies (20 sources) Accessory right tarsal navicular bone; 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), including pelvic girdle] 08-27-2024 Chronic Other congenital anomalies (3 sources) Accessory left tarsal navicular bone; 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), including pelvic girdle] 07-19-2024 Chronic Other congenital anomalies (3 sources) Other congenital malformations of lower limb(s), including pelvic girdle; 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), including pelvic girdle] Onset: 4 Chronic Other connective tissue disease (2 sources) Calcaneal spur of left foot; Translations: [Calcaneal spur, left foot] 08-30-2024 Episodic Other connective tissue disease (2 sources) Plantar fasciitis; Translations: [Plantar fascial fibromatosis] 08-30-2024 Episodic Other connective tissue disease (3 sources) Pain in right foot; Translations: [Pain in right foot] Onset: 4 Episodic Other connective tissue disease (2 sources) Posterior tibial tendinitis, right leg; Translations: [Posterior tibial tendinitis, right leg] Onset: 4 Episodic Other connective tissue disease (1 source) Pain in right foot; Translations: [Pain in right foot] 12-12-2024 Episodic Other connective tissue disease (4 sources) Capsulitis of metatarsophalangeal joint of right foot; Translations: [Other enthesopathy of right foot and ankle] 03-07-2025 Episodic Other nervous system disorders (1 source) Other chronic pain; Translations: [Chronic pain of right ankle] Onset: 5 Chronic Other non-traumatic joint disorders (1 source) Sinus tarsi syndrome of right ankle; Translations: [Pain in right ankle and joints of right foot] 04-25-2025 Episodic Other non-traumatic joint disorders (5 sources) Chronic ankle pain; Translations: [Pain in right ankle and joints of right foot] 05-16-2025 Episodic Other non-traumatic joint disorders (2 sources) Pain in right ankle and joints of right foot; Translations: [Chronic pain of right ankle] Onset: 5 Episodic Other nutritional; endocrine; and metabolic disorders (20 sources) Morbid obesity; Translations: [Body mass index (BMI) 60.0-69.9, adult] Onset: 5 12-28-2024 Chronic Other nutritional; endocrine; and metabolic disorders (2 sources) Body mass index 40+ - severely obese; Translations: [Morbid (severe) obesity due to excess calories] 06-16-2025 Chronic Other nutritional; endocrine; and metabolic disorders (1 source) Morbid (severe) obesity due to excess calories; Translations: [Morbid (severe) obesity due to excess calories] Onset: 5 Chronic Other nutritional; endocrine; and metabolic disorders (1 source) Body mass index (BMI) 60.0-69.9, adult; Translations: [Body mass index [BMI] 60.0-69.9, adult] Onset: 5 Chronic Other upper respiratory disease (1 source) Allergic rhinitis due to pollen; Translations: [Allergic rhinitis due to pollen] Chronic Other upper respiratory disease (2 sources) Chronic rhinitis; Translations: [Chronic rhinitis] 07-26-2024 Chronic Other upper respiratory infections (4 sources) Chronic sinusitis, unspecified; Translations: [CHRONIC SINUSITIS UNSPECIFIED] Onset: 3 Chronic Pancreatic disorders (not diabetes) (3 sources) Pancreatitis 02-08-2014 Episodic Residual codes; unclassified (20 sources) Obstructive sleep apnea syndrome; Translations: [Obstructive sleep apnea (adult) (pediatric)] Onset: 5 12-28-2024 Chronic Residual codes; unclassified (1 source) Obstructive sleep apnea (adult) (pediatric); Translations: [Obstructive sleep apnea (adult) (pediatric)] Onset: 5 Chronic Residual codes; unclassified (2 sources) Pain; Translations: [Pain, unspecified] 12-12-2024 Episodic Residual codes; unclassified (14 sources) History of operative procedure on foot; Translations: [Other specified postprocedural states] 01-03-2025 Episodic Residual codes; unclassified (1 source) Other specified postprocedural states; Translations: [S/P foot surgery, right] Onset: 5 Episodic Skin and subcutaneous tissue infections (3 sources) Onychia of finger; Translations: [Cellulitis of right finger] 02-05-2025 Episodic Unclassified (1 source) CONTACT W/AND (SUSP) EXPOS COVID-19; Translations: [CONTACT W/AND (SUSP) EXPOS COVID-19] Onset: 3 Unclassified (4 sources) Call office on Tuesday to schedule follow-up with Cardiology. Unclassified (2 sources) Call office on Tuesday to schedule follow-up with your Primary Care Provider within 3-5 days of discharge. Past or Other Problems Problem Classification Problem [...] specified disorders of left ear] 07-26-2024 Episodic Other nervous system disorders (1 source) Other acute postprocedural pain; Translations: [Post-op pain] Onset: 12-31-2024 Episodic Residual codes; unclassified (1 source) Pain, unspecified; Translations: [Pain] Onset: 12-12-2024 Episodic Spondylosis; intervertebral disc disorders; other back problems (4 sources) Sciatica, right side; Translations: [SCIATICA RIGHT SIDE] Onset: 11-28-2022 Episodic Sprains and strains (1 source) Unspecified sprain of right ring finger, initial encounter Onset: 03-22-2022 Resolved: 03-22-2022 Episodic Unclassified (6 sources) Stress fracture of right foot 10-04-2024 Unclassified (8 sources) History of operative procedure on foot 01-09-2025 Results Test Name Value Interpretation Reference Range Facility CT angio chest PE protocolon 06-16-2025 CT angio chest PE protocol [facility] Main [address] [address] [address] Scan Report Signed Patient: Noel Paul MR#: [id number] : 1990 Acct:[id number] Age/Sex: 34 / F ADM Date: 06/15/25 Loc: Room: [address] [place] [address] Type: ADM INOo Attending Dr: Mitch Galaviz [...] Prince M.D. 06/16/2025 12:11 PM Dictation Location: [place] [address] Transcribed By: [facility] 06/16/25 1211 Dictated By: Joshua Prince MD 06/16/25 1208 Signed By: 06/16/25 1211 Normal [facility] ECG 12 lead ECGon 06-16-2025 ECG 12 lead ECG [facility] [address] Electrocardiograph Report Signed Patient: Noel Paul MR#: [id number] : 1990 Acct:[id number] Age/Sex: 34 / F ADM Date: 06/15/25 Loc: Room: [address] [place] [address] Type: ADM INOo Attending Dr: Mitch Galaviz [...] Normal sinus rhythm Normal ECG Confirmed by Igne Adler ([id number]) on 06/16/2025 10:58:02 AM Referred By: Electronically Signed By: Inge Adler Transcribed By: MUS Signed By Inge Adler MD 5 1058 Normal [facility] Glucose Poct Glucometerson 0 06-16-2025 Glucose [Mass/Vol] 106 mg/dL Normal [facility] Comment on above: Result Comment: [facility] Glucose Reference Range is dependent on time and content of last meal. Glucose of more than 200 mg/dL in a nonstressed, ambulatory subject supports the diagnosis of Diabetes Mellitus. PERFORMED BY: [place] [id number] PATHOLOGIST WIND TECHNICIAN CHANEL ROMERO M.D. Performed By: #### G LULS #### Point of Care testing , Commemt1 Glu2: Cleaned Meter Normal [facility] Comment on above: Result Comment: PERF ORMED BY: [facility] [address] [place] [address] PATHOLOGIST WIND TECHNICIAN CHANEL ROMERO M.D. Performed By: #### G LULS #### Point of Care testing , Glucose [Mass/Vol] 124 mg/dL Normal [facility] Comment on above: Result Comment: [facility] Glucose Reference Range is dependent on time and content of last meal. Glucose of more than 200 mg/dL in a nonstressed, ambulatory subject supports the diagnosis of Diabetes Mellitus. Performed By: #### G LULS #### Point of Care testing , Commemt1 Glu2: Cleaned Meter Normal [facility] Comment on above: Result Comment: PERF ORMED BY: [place] [address] PATHOLOGIST WIND TECHNICIAN CHANEL ROMERO M.D. Performed By: #### G LULS #### Point of Care testing , Glucose [Mass/Vol] 125 mg/dL Normal [facility] Comment on above: Result Comment: [facility] Glucose Reference Range is dependent on time and content of last meal. Glucose of more than 200 mg/dL in a nonstressed, ambulatory subject supports the diagnosis of Diabetes Mellitus. Performed By: #### G LULS #### Point of Care testing , Troponin I High Sensitivityo n 06-16-2025 Troponin I High Sensitivity 3 Normal 0-15 [facility] Comment on above: Result Comment: The Troponin units of report have been changed to meet the Chest Pain Accreditation requirement, element EC5.M1l2. Troponin units are changed from pg/ml to ng/L. Also, the decimal is removed and results are in whole numbers. PERFORMED BY: [place] [address] PATHOLOGIST WIND TECHNICIAN CHANEL ROMERO M.D. Performed By: #### G LULS #### Point of Care testing , A1C with Estimated Average [facility]-15-2025 Glucose [Mass/Vol] 137 mg/dL Normal [facility] Comment on above: Result Comment: PERF ORMED BY: [place] [address] PATHOLOGIST WIND TECHNICIAN CHANEL ROMERO M.D. Performed By: #### H S TROP #### [address] HbA1c (Bld) [Mass fraction] 6.4 % High 4.3-5.6 [facility] Comment on above: Result Comment: Incr eased risk for diabetes: 5.7 - 6.4 diabetes: >6.4 glycemic control for adults with diabetes: <7.0 Performed By: #### H S TROP #### [facility] [address] Basic Metabolic Panelon 05-28 Anion gap [Moles/Vol] 10.1 mmol/L Normal 6.0-15.0 Th e [facility] Comment on above: Performed By: #### H S TROP #### [facility] [address] [place] [address] [place] Calcium [Mass/Vol] 8.7 mg/dL Normal 8.6-10.3 [facility] Comment on above: Performed By: #### H S TROP #### [facility] [address] [place] [address] [place] Chloride [Moles/Vol] 103 mmol/L Normal 98-107 [facility] Comment on above: Performed By: #### H S TROP #### [address] CO2 [Moles/Vol] 30.9 mmol/L Normal 21.0-31.0 [facility] Comment on above: Performed By: #### H S TROP #### [place] [address] [place] Creatinine [Mass/Vol] 0.86 mg/dL Normal 0.60-1.20 [facility] Comment on above: Performed By: #### H S TROP #### [facility] [address] [place] [address] [place] Creatinine Clr Calc Pharmacy 129.66 Normal [facility] Comment on above: Performed By: #### H S TROP #### [place] [address] [place] GFR/1.73 sq M.predicted MDRD (S/P/Bld) [Vol rate/Area] mL/min/{1.73_m2} Normal [facility] Comment on above: Performed By: #### H S TROP #### [place] [address] [place] Glucose [Mass/Vol] 123 mg/dL High 70-100 [facility] Comment on above: Result Comment: [facility] Glucose Reference Range is dependent on time and content of last meal. Glucose of more than 200 mg/dL in a nonstressed, ambulatory subject supports the diagnosis of Diabetes Mellitus. ADA recommended reference range Performed By: #### H S TROP #### [address] Potassium [Moles/Vol] 4.0 mmol/L Normal 3.5-5.1 [facility] Comment on above: Performed By: #### H S TROP #### [address] Sodium [Moles/Vol] 140 mmol/L Normal 136-145 [facility] Comment on above: Performed By: #### H S TROP #### [address] Urea nitrogen [Mass/Vol] 17 mg/dL Normal 7-25 [facility] Comment on above: Performed By: #### H S TROP #### [address] Complete Blood Count Auto Di ffon 06-15-2025 Basophils (Bld) [#/Vol] 0.1 10*3/uL Normal 0.0-0.2 [facility] Comment on above: Result Comment: PERF ORMED BY: [place] [address] PATHOLOGIST WIND TECHNICIAN CHANEL ROMERO M.D. Performed By: #### H S TROP #### [place] [address] [place] Basophils/100 WBC (Bld) 0.7 % Normal . [facility] Comment on above: Performed By: #### H S TROP #### [place] [address] [place] Eosinophils (Bld) [#/Vol] 0.3 10*3/uL Normal 0.0-0.45 [facility] Comment on above: Performed By: #### H S TROP #### [place] [address] [place] Eosinophils/100 WBC (Bld) 2.8 % Normal . [facility] Comment on above: Performed By: #### H S TROP #### [address] Erythrocyte distribution width (RBC) [Ratio] 17.1 % High 11.9-15.3 [facility] Comment on above: Performed By: #### H S TROP #### [address] Hematocrit (Bld) [Volume fraction] 36.5 % Normal 34.0-46.4 [facility] Comment on above: Performed By: #### H S TROP #### [address] Hemoglobin (Bld) [Mass/Vol] 11.6 g/dL Low 11.8-15.4 [facility] Comment on above: Performed By: #### H S TROP #### [address] Lymphocytes (Bld) [#/Vol] 1.9 10*3/uL Normal 1.00-4.8 [facility] Comment on above: Performed By: #### H S TROP #### [address] Lymphocytes/100 WBC (Bld) 16.9 % Normal . [facility] Comment on above: Performed By: #### H S TROP #### [address] MCH (RBC) [Entitic mass] 25.0 pg Normal 24.7-34.3 [facility] Comment on above: Performed By: #### H S TROP #### [address] MCV (RBC) [Entitic vol] 78.4 fL Low 80-100 [facility] Comment on above: Performed By: #### H S TROP #### [address] Mean Corpuscular HGB Conc 31.9 g/dL Low 32.0-35.0 [facility] Comment on above: Performed By: #### H S TROP #### [place] [address] [place] Monocytes (Bld) [#/Vol] 0.6 10*3/uL Normal 0.0-0.8 [facility] Comment on above: Performed By: #### H S TROP #### [address] Monocytes/100 WBC (Bld) 5.6 % Normal . [facility] Comment on above: Performed By: #### H S TROP #### [address] Neutrophils (Bld) [#/Vol] 8.3 10*3/uL High 1.8-7.7 [facility] Comment on above: Performed By: #### H S TROP #### [place] [address] [place] Neutrophils/100 WBC (Bld) 74.0 % Normal . [facility] Comment on above: Performed By: #### H S TROP #### [address] NRBC% 0.1 /100{WBC} Normal 0-0.5 [facility] Comment on above: Performed By: #### H S TROP #### [address] Platelet mean volume (Bld) [Entitic vol] 7.4 fL Normal 6.3-10.7 [facility] Comment on above: Performed By: #### H S TROP #### [place] [address] [place] Platelets (Bld) [#/Vol] 349 10*3/uL Normal 150-450 [facility] Comment on above: Performed By: #### H S TROP #### [place] [address] [place] RBC (Bld) [#/Vol] 4.65 10*6/uL Normal 3.60-5.00 [facility] Comment on above: Performed By: #### H S TROP #### [facility] [address] WBC (Bld) [#/Vol] 11.2 10*3/uL Normal 3.8-11.6 [facility] Comment on above: Performed By: #### H S TROP #### [facility] [address] [place] [address] White Blood Count 11.2 [CFU]/mL Normal 3.8-11.6 [facility] Comment on above: Performed By: #### H S TROP #### [facility] [address] [place] [address] ECG 12 lead ECGon 06-15-2025 ECG 12 lead ECG [facility] [place] [address] Electrocardiograph Report Signed Patient: Noel Paul MR#: [id number] : 1990 Acct:[id number] Age/Sex: 34 / F ADM Date: 06/15/25 Loc: Room: [address] [place] [address] Type: ADM INOo Attending Dr: Mitch Galaviz [...] rhythm Normal ECG Confirmed by Inge Adler ([id number]) on 06/15/2025 7:22:48 PM Referred By: Electronically Signed By: Inge Adler Transcribed By: MUS Signed By Inge Adler MD 1921 Normal [facility] ECG 12 lead ECG [facility] [place] [address] Electrocardiograph Report Signed Patient: Noel Paul MR#: [id number] : 1990 Acct:[id number] Age/Sex: 34 / F ADM Date: 06/15/25 Loc: 3T Room: [address] [place] [address] Type: ADM INOo Attending Dr: Mitch Galaviz MD Ordering Provider: Nini Lama APRN Date of Service: 06/15/25 ECG/ECG 12 lead [...] rhythm Normal ECG Confirmed by Inge Adler ([id number]) on 06/15/2025 7:22:44 PM Referred By: Electronically Signed By: Inge Adler Transcribed By: MUS Signed By Inge Adler MD 1921 Normal [facility] ECH echo transthoracicon ECH echo transthoracic [facility] [place] [address] Echocardiogram Signed Patient: Noel Paul MR#: [id number] : 1990 Acct:[id number] Age/Sex: 34 / F ADM Date: 06/15/25 Loc: 3T Room: [address] [place] [address] Type: ADM INOo Attending Dr: Mitch Galaviz MD Ordering Provider: Inge Adler MD Date of Service: 06/15/25 [facility] echo transthoracic: Chest pain Copies to: Inge [...] cm CARMELO(I,D): 3.0 cm2 CARMELO(V,D): 2.8 cm2 ___ Transcribed By: ANA Performed At: 06/15/25 1243 Signed By: Inge Adler MD 06/15/25 [id number] [facility] Glucose Poct Glucometerson 0 06-15-2025 Commemt1 Glu2: Cleaned Meter Normal [facility] Comment on above: Result Comment: PERF ORMED BY: [address] [place] [address] PATHOLOGIST WIND TECHNICIAN CHANEL ROMERO M.D. Performed By: #### G LULS #### Point of Care testing , Glucose [Mass/Vol] 111 mg/dL Normal [facility] Comment on above: Result Comment: [place] Glucose Reference Range is dependent on time and content of last meal. Glucose of more than 200 mg/dL in a nonstressed, ambulatory subject supports the diagnosis of Diabetes Mellitus. Performed By: #### G LULS #### Point of Care testing , Glucose [Mass/Vol] 108 mg/dL Normal [facility] Comment on above: Result Comment: [place] Glucose Reference Range is dependent on time and content of last meal. Glucose of more than 200 mg/dL in a nonstressed, ambulatory subject supports the diagnosis of Diabetes Mellitus. PERFORMED BY: [address] [place] [address] PATHOLOGIST WIND TECHNICIAN CHANEL ROMERO M.D. Performed By: #### G LULS #### Point of Care testing , Glucose [Mass/Vol] 74 mg/dL Normal [facility] Comment on above: Result Comment: [place] Glucose Reference Range is dependent on time and content of last meal. Glucose of more than 200 mg/dL in a nonstressed, ambulatory subject supports the diagnosis of Diabetes Mellitus. PERFORMED BY: [address] [place] [address] PATHOLOGIST WIND TECHNICIAN CHANEL ROMERO M.D. Performed By: #### G LULS #### Point of Care testing , Commemt1 Glu2: Cleaned Meter Normal [facility] Comment on above: Result Comment: PERF ORMED BY: [address] [place] [id number] PATHOLOGIST WIND TECHNICIAN CHANEL ROMERO M.D. Performed By: #### G LULS #### Point of Care testing , Glucose [Mass/Vol] 88 mg/dL Normal [facility] Comment on above: Result Comment: [place] Glucose Reference Range is dependent on time and content of last meal. Glucose of more than 200 mg/dL in a nonstressed, ambulatory subject supports the diagnosis of Diabetes Mellitus. Performed By: #### G LULS #### Point of Care testing , Commemt1 Glu2: Cleaned Meter Normal [facility] Comment on above: Result Comment: PERF ORMED BY: [place] [id number] PATHOLOGIST WIND TECHNICIAN CHANEL ROMERO M.D. Performed By: #### G LULS #### Point of Care testing , Glucose [Mass/Vol] 79 mg/dL Normal [facility] Comment on above: Result Comment: [place] Glucose Reference Range is dependent on time and content of last meal. Glucose of more than 200 mg/dL in a nonstressed, ambulatory subject supports the diagnosis of Diabetes Mellitus. Performed By: #### G LULS #### Point of Care testing , Glucose [Mass/Vol] 64 mg/dL Normal [facility] Comment on above: Result Comment: [place] Glucose Reference Range is dependent on time and content of last meal. Glucose of more than 200 mg/dL in a nonstressed, ambulatory subject supports the diagnosis of Diabetes Mellitus. PERFORMED BY: [place] [id number] PATHOLOGIST WIND TECHNICIAN CHANEL ROMERO M.D. Performed By: #### G LULS #### Point of Care testing , Glucose [Mass/Vol] 94 mg/dL Normal [facility] Comment on above: Result Comment: [place] Glucose Reference Range is dependent on time and content of last meal. Glucose of more than 200 mg/dL in a nonstressed, ambulatory subject supports the diagnosis of Diabetes Mellitus. PERFORMED BY: [address] [place] [id number] PATHOLOGIST WIND TECHNICIAN CHANEL ROMERO M.D. Performed By: #### G LULS #### Point of Care testing , Commemt1 Glu2: Cleaned Meter Normal [facility] Comment on above: Result Comment: PERF ORMED BY: [facility] [address] [place] [address] PATHOLOGIST WIND TECHNICIAN CHANEL ROEMRO M.D. Performed By: #### G LULS #### Point of Care testing , Glucose [Mass/Vol] 115 mg/dL Normal [facility] Comment on above: Result Comment: [place] Glucose Reference Range is dependent on time and content of last meal. Glucose of more than 200 mg/dL in a nonstressed, ambulatory subject supports the diagnosis of Diabetes Mellitus. Performed By: #### G LULS #### Point of Care testing , Commemt1 Glu2: Cleaned Meter Normal [facility] Comment on above: Result Comment: PERF ORMED BY: [facility] [address] [place] [address] PATHOLOGIST WIND TECHNICIAN CHANEL ROMERO M.D. Performed By: #### G LULS #### Point of Care testing , Glucose [Mass/Vol] 135 mg/dL Normal [facility] Comment on above: Result Comment: [place] Glucose Reference Range is dependent on time and content of last meal. Glucose of more than 200 mg/dL in a nonstressed, ambulatory subject supports the diagnosis of Diabetes Mellitus. Performed By: #### G LULS #### Point of Care testing , Lipid Panelon 06-15-2025 Cholesterol [Mass/Vol] 158 mg/dL Normal 140-200 Th e [facility] Comment on above: Result Comment: Chol less than 200 mg/dl low risk Chol 201-239 mg/dl borderline risk Chol 240 mg/dl and greater high risk Performed By: #### H S TROP #### [place] [address] [place] Cholesterol in HDL [Mass/Vol] 31 mg/dL Normal 23-92 [facility] Comment on above: Result Comment: HDL CHOL ATP-III CLASSIFICATION Cardiovascular Risk HDL > or equal to 60 mg/dL LOW HDL < 40 mg/dL HIGH Performed By: #### H S TROP #### [facility] [address] [place] [id number] [place] Cholesterol.total/Chol esterol in HDL [Mass ratio] 5.1 {ratio} Normal <5.0 [facility] Comment on above: Result Comment: PERF ORMED BY: [place] [address] PATHOLOGIST WIND TECHNICIAN CHANEL ROMERO M.D. Performed By: #### H S TROP #### [address] LDL Cholesterol,Calculated 88 mg/dL Normal 0-100 [facility] Comment on above: Result Comment: LDL ATP III CLASSIFICATION LDL less than 100 mg/dL Optimal LDL 100-129 mg/dL Near or above optimal LDL 130-159 mg/dL Borderline high LDL 160-189 mg/dL High LDL greater than 189 mg/dL Very high Performed By: #### H S TROP #### [address] Triglyceride w/Reflex 197 mg/dL High 0-149 [facility] Comment on above: Result Comment: TRIG ATP III CLASSIFICATION TRIG less than 150 mg/dL Normal TRIG 150-199 mg/dL Borderline high TRIG 200-500 mg/dL High TRIG greater than 500 mg/dL Very high Standard traceable to the Center for Disease Conrtrol and Prevention (CDC) test method. Performed By: #### H S TROP #### [address] VLDL CHOLESTEROL 39 mg/dL Normal [facility] Comment on above: Performed By: #### H S TROP #### [address] Magnesiumon 06-15-2025 Magnesium [Mass/Vol] 1.8 mg/dL Low 1.9-2.7 [facility] Comment on above: Performed By: #### H S TROP #### [place] [address] [place] Troponin I High Sensitivityo n 06-15-2025 Troponin I High Sensitivity 3 Normal 0-15 [facility] Comment on above: Result Comment: The Troponin units of report have been changed to meet the Chest Pain Accreditation requirement, element EC5.M1l2. Troponin units are changed from pg/ml to ng/L. Also, the decimal is removed and results are in whole numbers. PERFORMED BY: [place] [address] PATHOLOGIST WIND TECHNICIAN CHANEL ROMERO M.D. Performed By: #### H S TROP #### [address] Troponin I High Sensitivity 4 Normal 0-15 [facility] Comment on above: Result Comment: The Troponin units of report have been changed to meet the Chest Pain Accreditation requirement, element EC5.M1l2. Troponin units are changed from pg/ml to ng/L. Also, the decimal is removed and results are in whole numbers. PERFORMED BY: [place] [address] PATHOLOGIST WIND TECHNICIAN CHANEL ROMERO M.D. Performed By: #### H S TROP #### [address] Troponin I High Sensitivity 3 Normal 0-15 [facility] Comment on above: Result Comment: The Troponin units of report have been changed to meet the Chest Pain Accreditation requirement, element EC5.M1l2. Troponin units are changed from pg/ml to ng/L. Also, the decimal is removed and results are in whole numbers. PERFORMED BY: [place] [address] PATHOLOGIST WIND TECHNICIAN CHANEL ROMERO M.D. Performed By: #### G LULS #### Point of Care testing , Troponin I.cardiac [Mass/vol ume] in Serum or Plasma by Detection limit <= 0.01 ng/mLOrdered By: Marek Dennis on 06-15-2025 Troponin I.cardiac DL <= 0.01 ng/mL [Mass/Vol] 3 ng/L 0-15 [facility] Comment on above: The Troponin units o f report have been changed to meet the Chest Pain Accreditation requirement, element EC5.M1l2. Troponin units are changed from pg/ml to ng/L. Also, the decimal is removed and results are in whole numbers. BNP ser/plasOrdered By: Kolton Dennis on 06-14-2025 Natriuretic peptide B (Bld) [Mass/Vol] 20.0 pg/mL Normal 5-100 [facility] Comment on above: Result Comment: PERF ORMED BY: [facility] [address] [place] [id number] PATHOLOGIST WIND TECHNICIAN CHANEL ROMERO M.D. Performed By: #### G LULS #### Point of Care testing , Basic Metabolic Panelon 05-28 Creatinine Clr Calc Pharmacy 109.28 Normal [facility] Comment on above: Result Comment: PERF ORMED BY: [facility] [address] [place] [address] PATHOLOGIST WIND TECHNICIAN CHANEL ROMERO M.D. Performed By: #### G LULS #### Point of Care testing , GFR/1.73 sq M.predicted MDRD (S/P/Bld) [Vol rate/Area] mL/min/{1.73_m2} Normal [facility] Comment on above: Performed By: #### G LULS #### Point of Care testing , Basophils [#/volume] in Bloo d by Automated countOrdered By: PROVIDER TEMP on 06-14-2025 Basophils (Bld) [#/Vol] 0.2 10*3/uL Normal 0.0-0.2 [facility] Comment on above: Result Comment: PERF ORMED BY: [facility] [address] [place] [address] PATHOLOGIST WIND TECHNICIAN CHANEL ROMERO M.D. Performed By: #### G LULS #### Point of Care testing , Basophils/100 leukocytes in Blood by Automated countOrdered By: PROVIDER TEMP on 06-14-2025 Basophils/100 WBC (Bld) 1.4 % Normal . [facility] Comment on above: Performed By: #### G LULS #### Point of Care testing , Calcium [Mass/volume] in Ser um or PlasmaOrdered By: PROVIDER TEMP on 06-14-2025 Calcium [Mass/Vol] 9.4 mg/dL Normal 8.6-10.3 [facility] Comment on above: Performed By: #### G МАРИЯLS #### Point of Care testing , Carbon dioxide, total [Moles /volume] in Serum or PlasmaOrdered By: PROVIDER TEMP on 06-14-2025 CO2 [Moles/Vol] 27.2 mmol/L Normal 21.0-31.0 [facility] Comment on above: Performed By: #### G LULS #### Point of Care testing , Chloride [Moles/volume] in S nikkie or PlasmaOrdered By: PROVIDER TEMP on 06-14-2025 Chloride [Moles/Vol] 105 mmol/L Normal 98-107 [facility] Comment on above: Performed By: #### G LULS #### Point of Care testing , Complete Blood Count Auto Di ffon 06-14-2025 Mean Corpuscular HGB Conc 32.2 g/dL Normal 32.0-35.0 [facility] Comment on above: Performed By: #### G LULS #### Point of Care testing , Monocytes/100 WBC (Bld) 19.88 % Normal 0.00-20.00 [facility] Comment on above: Performed By: #### G LULS #### Point of Care testing , NRBC% 0.1 /100{WBC} Normal 0-0.5 [facility] Comment on above: Performed By: #### G LULS #### Point of Care testing , White Blood Count 12.4 [CFU]/mL High 3.8-11.6 [facility] Comment on above: Performed By: #### G LULS #### Point of Care testing , Creatine kinase [Enzymatic a ctivity/volume] in Serum or PlasmaOrdered By: PROVIDER TEMP on 06-14-2025 CK [Catalytic activity/Vol] 50 U/L Normal 30-223 [facility] Comment on above: Performed By: #### G LULS #### Point of Care testing , Creatinine [Mass/volume] in Serum or PlasmaOrdered By: PROVIDER TEMP on 06-14-2025 Creatinine [Mass/Vol] 0.99 mg/dL Normal 0.60-1.20 [facility] Comment on above: Performed By: #### G LULS #### Point of Care testing , D-Dimer High Sensitivityon 0 06-14-2025 D-Dimer High Sensitivity <200 Normal 0-243 [facility] Comment on above: Result Comment: The reference range for D-dimer is <243 ng/mL D-dimer [...] coagulation studies. Please contact the laboratory at [phone] for redraw instructions. PERFORMED BY: [place] [address] PATHOLOGIST WIND TECHNICIAN CHANEL ROMERO M.D. Performed By: #### G LULS #### Point of Care testing , ECG 12 lead ECGon 06-14-2025 ECG 12 lead ECG [facility] [address] Electrocardiograph Report Signed Patient: Noel Paul MR#: [id number] : 1990 Acct:[id number] Age/Sex: 34 / F ADM Date: 06/15/25 Loc: Room: [address] [place] [address] Type: ADM INOo Attending Dr: Neo Mclaughlin [...] MUS Signed By Marek Dennis DO 0300 Normal [facility] Eosinophils [#/volume] in Bl ood by Automated countOrdered By: PROVIDER TEMP on 06-14-2025 Eosinophils (Bld) [#/Vol] 0.3 10*3/uL Normal 0.0-0.45 [facility] Comment on above: Performed By: #### G LULS #### Point of Care testing , Eosinophils/100 leukocytes i n Blood by Automated countOrdered By: PROVIDER TEMP on 06-14-2025 Eosinophils/100 WBC (Bld) 2.8 % Normal . [facility] Comment on above: Performed By: #### G LULS #### Point of Care testing , Erythrocyte distribution wid th [Ratio] by Automated countOrdered By: PROVIDER TEMP on 06-14-2025 Erythrocyte distribution width (RBC) [Ratio] 16.5 % High 11.9-15.3 [facility] Comment on above: Performed By: #### G LULS #### Point of Care testing , Erythrocytes [#/volume] in B lood by Automated countOrdered By: PROVIDER TEMP on 06-14-2025 RBC (Bld) [#/Vol] 4.98 10*6/uL Normal 3.60-5.00 [facility] Comment on above: Performed By: #### G LULS #### Point of Care testing , Glucose [Mass/volume] in Ser um or PlasmaOrdered By: PROVIDER TEMP on 06-14-2025 Glucose [Mass/Vol] 143 mg/dL High 70-100 [facility] Comment on above: ADA recommended refe rence rangeRandom Glucose Reference Range is dependent on time and content of last meal. Glucose of more than 200 mg/dL in a nonstressed, ambulatory subject supports the diagnosis of Diabetes Mellitus. Result Comment: [place] Glucose Reference Range is dependent on time and content of last meal. Glucose of more than 200 mg/dL in a nonstressed, ambulatory subject supports the diagnosis of Diabetes Mellitus. ADA recommended reference range Performed By: #### G LULS #### Point of Care testing , Hematocrit [Volume Fraction] of Blood by Automated countOrdered By: PROVIDER TEMP on 06-14-2025 Hematocrit (Bld) [Volume fraction] 38.6 % Normal 34.0-46.4 [facility] Comment on above: Performed By: #### G LULS #### Point of Care testing , Hemoglobin [Mass/volume] in BloodOrdered By: PROVIDER TEMP on 06-14-2025 Hemoglobin (Bld) [Mass/Vol] 12.4 g/dL Normal 11.8-15.4 [facility] Comment on above: Performed By: #### G LULS #### Point of Care testing , INR in Platelet poor plasma by Coagulation assayOrdered By: Marek Dennis on 06-14-2025 INR Coag (PPP) [Relative time] 1.0 {INR} Normal [facility] Comment on above: INR Therapeutic Rang e A) Pre- and Peroperative OAT started two weeks before surgery. NOT HIP SURGERY: 1.5 - 2.5 HIP SURGERY: 2 - 3B) Primary and secondary prevention of venous THROMBOSIS: 2 - 3C) Active venous thrombosis, pulmonary embolismand prevention of recurrent venous thrombosis: 2 - 3D) Prevention of arterial thromboembolismincluding patients with mechanical heart valves: 3 - 4.5 Result Comment: INR Therapeutic Range A) Pre- and Peroperative OAT started [...] heart valves: 3 - 4.5 PERFORMED BY: [facility] [address] [place] [address] PATHOLOGIST WIND TECHNICIAN CHANEL ROMERO M.D. Performed By: #### G LULS #### Point of Care testing , Leukocytes [#/volume] correc ramos for nucleated erythrocytes in Blood by Automated counOrdered By: PROVIDER TEMP on 06-14-2025 WBC corrected for nucl RBC Auto (Bld) [#/Vol] 12.4 10*3/uL High 3.8-11.6 [facility] Leukocytes [#/volume] in Blo od by Automated countOrdered By: PROVIDER TEMP on 06-14-2025 WBC (Bld) [#/Vol] 12.4 10*3/uL High 3.8-11.6 [facility] Comment on above: Performed By: #### G BARAK #### Point of Care testing , Lymphocytes [#/volume] in Bl ood by Automated countOrdered By: PROVIDER TEMP on 06-14-2025 Lymphocytes (Bld) [#/Vol] 2.0 10*3/uL Normal 1.00-4.8 [facility] Comment on above: Performed By: #### G BARAK #### Point of Care testing , Lymphocytes/100 leukocytes i n Blood by Automated countOrdered By: PROVIDER TEMP on 06-14-2025 Lymphocytes/100 WBC (Bld) 15.9 % Normal . [facility] Comment on above: Performed By: #### G МАРИЯLS #### Point of Care testing , MCH [Entitic mass] by Automa ramos countOrdered By: PROVIDER TEMP on 06-14-2025 MCH (RBC) [Entitic mass] 25.0 pg Normal 24.7-34.3 [facility] Comment on above: Performed By: #### G BARAK #### Point of Care testing , MCHC Auto (RBC) [Mass/Vol]Or dered By: PROVIDER TEMP on 06-14-2025 MCHC (RBC) [Mass/Vol] 32.2 g/dL 32.0-35.0 [facility] MCV [Entitic volume] by Auto mated countOrdered By: PROVIDER TEMP on 06-14-2025 MCV (RBC) [Entitic vol] 77.6 fL Low 80-100 [facility] Comment on above: Performed By: #### G МАРИЯLS #### Point of Care testing , Monocyte distribution width [Entitic volume] in Blood by AutomatedOrdered By: PROVIDER TEMP on 06-14-2025 Monocyte distribution width Auto (Bld) [Entitic vol] 19.88 % 0.00-20.00 [facility] Monocytes [#/volume] in Bloo d by Automated countOrdered By: PROVIDER TEMP on 06-14-2025 Monocytes (Bld) [#/Vol] 0.6 10*3/uL Normal 0.0-0.8 [facility] Comment on above: Performed By: #### G LULS #### Point of Care testing , Monocytes/100 leukocytes in Blood by Automated countOrdered By: PROVIDER TEMP on 06-14-2025 Monocytes/100 WBC (Bld) 5.2 % Normal . [facility] Comment on above: Performed By: #### G LULS #### Point of Care testing , Neutrophils [#/volume] in Bl ood by Automated countOrdered By: PROVIDER TEMP on 06-14-2025 Neutrophils (Bld) [#/Vol] 9.3 10*3/uL High 1.8-7.7 [facility] Comment on above: Performed By: #### G LULS #### Point of Care testing , Neutrophils/100 leukocytes i n Blood by Automated countOrdered By: PROVIDER TEMP on 06-14-2025 Neutrophils/100 WBC (Bld) 74.7 % Normal . [facility] Comment on above: Performed By: #### G LULS #### Point of Care testing , No Panel InformationOrdered By: PROVIDER TEMP on 06-14-2025 Estimated GFR (CKD-EPI) > 60.0 mL/Min [facility] Creatinine Clearance (Chem 109.28 [facility] Nucleated erythrocytes [Pres ence] in Blood by Automated countOrdered By: PROVIDER TEMP on 06-14-2025 Nucleated RBC Auto Ql (Bld) 0.1 /100{WBC} 0-0.5 [facility] Platelet mean volume [Entiti c volume] in Blood by Automated countOrdered By: PROVIDER TEMP on 06-14-2025 Platelet mean volume (Bld) [Entitic vol] 7.5 fL Normal 6.3-10.7 [facility] Comment on above: Performed By: #### G LULS #### Point of Care testing , Platelets [#/volume] in Bloo d by Automated countOrdered By: PROVIDER TEMP on 06-14-2025 Platelets (Bld) [#/Vol] 361 10*3/uL Normal 150-450 [facility] Comment on above: Performed By: #### G LULS #### Point of Care testing , Potassium [Moles/volume] in Serum or PlasmaOrdered By: PROVIDER TEMP on 06-14-2025 Potassium [Moles/Vol] 3.7 mmol/L Normal 3.5-5.1 [facility] Comment on above: Performed By: #### G LULS #### Point of Care testing , Prothrombin time (PT)Ordered By: Marek Dennis on 06-14-2025 PT Coag (PPP) [Time] 11.5 s Normal 9.0-12.9 [facility] Comment on above: A hematocrit value g reater than 55% may lead to inaccurate results in coagulation testing. Patients having hematocrit values >55% require a special collection tube for coagulation studies. Please contact the laboratory at [phone] for redraw instructions. Result Comment: A he matocrit value greater than 55% may lead to inaccurate results in coagulation testing. Patients having hematocrit values >55% require a special collection tube for coagulation studies. Please contact the laboratory at [phone] for redraw instructions. Performed By: #### G LULS #### Point of Care testing , Serum or plasma anion gap de terminationOrdered By: PROVIDER TEMP on 06-14-2025 Anion gap [Moles/Vol] 11.5 mmol/L Normal 6.0-15.0 [facility] Comment on above: Performed By: #### G LULS #### Point of Care testing , Sodium [Moles/volume] in Ser um or PlasmaOrdered By: PROVIDER TEMP on 06-14-2025 Sodium [Moles/Vol] 140 mmol/L Normal 136-145 [facility] Comment on above: Performed By: #### G LULS #### Point of Care testing , Troponin I High Sensitivityo n 06-14-2025 Troponin I High Sensitivity 3 Normal 0-15 [facility] Comment on above: Result Comment: The Troponin units of report have been changed to meet the Chest Pain Accreditation requirement, element EC5.M1l2. Troponin units are changed from pg/ml to ng/L. Also, the decimal is removed and results are in whole numbers. PERFORMED BY: [place] [address] PATHOLOGIST WIND TECHNICIAN CHANEL ROMERO M.D. Performed By: #### G LULS #### Point of Care testing , Urea nitrogen [Mass/volume] in Serum or PlasmaOrdered By: PROVIDER ABRAHAN on 06-14-2025 Urea nitrogen [Mass/Vol] 16 mg/dL Normal 06-21 [facility] Comment on above: Performed By: #### G LULS #### Point of Care testing , X-ray reportOrdered By: Fermín Wilks on 06-14-2025 Study report [facility] Main [place] [id number] XRay Report Signed Patient: Noel Paul MR#: [id number] : 1990 Acct:[id number] Age/Sex: 34 / F ADM Date: 5 Loc: ER Room: Type: PRE ER Attending Dr: Copies to: DO ABRAHAN French PROVIDER~ Ordering Provider: OUSMANE GAUTHIER Date of Service: 06/14/25 XR/XR chest [...] Wilks M.D. 06/14/2025 10:57 PM Dictation Location: [facility]- Transcribed By: [facility] 06/14/252256 Dictated By: Fermín Wilks II, MD 06/14/252255 Signed By: 06/14/252256 [facility] Work Phone: XR chest 2V*on 06-14-2025 XR chest 2V* [facility] Main [place] [address] [place] [address] XRay Report Signed Patient: Noel Paul MR#: [id number] : 1990 Acct:[id number] Age/Sex: 34 / F ADM Date: 06/14/25 Loc: ER Room: Type: PRE ER Attending Dr: Copies to: DO ABRAHAN French PROVIDER Ordering Provider: OUSMANE GAUTHIER Date of Service: 06/14/25 XR/XR chest [...] Wilks M.D. 06/14/2025 10:57 PM Dictation Location: [place] [address] Transcribed By: [facility] 06/14/252256 Dictated By: Fermín Wilks II, MD 06/14/252255 Signed By: 06/14/252256 Normal [facility] MR Ankle - right WO contrast on 06-06-2025 IMPRESSION: 1. Postoperative changes of posterior tibialis tendon reattachment with marked thickening of the distal tendon probably due to degeneration or postoperative scarring. No evidence of a complete tear. 2. Tenosynovitis at the master knot of Luis. 3. Chronic changes in the deltoid and spring ligaments as described. Head Of Data: PSCB Transcribe Date/Time: Jun 06 2025 11:37A Dictated by : RADHA TYSON MD This examination was interpreted and the report reviewed and electronically signed by: KATIANA FLORES MD on Jun 06 2025 2:13PM [facility] DIVISION OF RADIOLOGY * * *Final Report* * * DATE OF EXAM: Jun 06 2025 8:43AM [facility] 0164 - MRI ANKLE WO IVCON [...] collections. Localizer images: No significant additional findings. DIVISION OF RADIOLOGY Provider, [facility] - 06/06/2025 * * *Final Report* * * DATE OF EXAM: Jun 06 2025 8:43AM [facility] 0164 - MRI ANKLE WO IVCON [...] the deltoid and spring ligaments as described. Head Of Data: HERNÁN Transcribe Date/Time: Jun 06 2025 11:37A Dictated by : RADHA TYSON MD This examination was interpreted and the report reviewed and electronically signed by: KATIANA FLORES MD on Jun 06 2025 2:13PM EST [facility] Radiology Study observation (narrative) [facility] MR Ankle - right WO contrast Ordered By: Ccf Provider on 06-06-2025 [facility] MRI ANKLE WO IVCON RTon 05-28 MRI ANKLE WO IVCON RT * * *Final Report* * * DATE OF EXAM: Jun 06 2025 8:43AM [facility] 0164 - MRI ANKLE WO IVCON [...] the deltoid and spring ligaments as described. Head Of Data: HERNÁN Transcribe Date/Time: Jun 06 2025 11:37A Dictated by : RADHA TYSON MD This examination was interpreted and the report reviewed and electronically signed by: KATIANA FLORES MD on Jun 06 2025 2:13PM EST [id number] [facility] Tele[facility] (LOORRM) ----- NOEL PAUL ([id number]) 1990 F [facility] Date Time Provider Department 05/17/25 SEAN MATA During your visit today, we recorded the following information about you: Natalia Barrios, HAYES 05/17/2025 12:02 PM Signed Patients boot in no longer inflating or button is broken. Her mother will be coming in this way next week. She will bring the boot to change it out. Patient lives in [place]. Allergies As of Date: 05/17/2025 Noted Allergy [...] by mouth once daily. - DEXCOM G7 REEL HOOKER 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 - DEXCOM G7 SENSOR [...] Encounter Status:Closed by NATALIA BARRIOS on 06/04/25 [facility] ZAINOVmahesh 05-16-2025 CNOV Office Visit (LOORRM ) ----- NOEL PAUL ([id number]) 1990 F [place] Date Time Provider Department 05/16/25 2:30 PM SEAN MATA During your visit today, we recorded the following information about you: Sean Mata DPM 05/16/2025 2:44 PM Signed Medical intake sheet from May 16, 2025 , was updated by patient, reviewed, and was made part of the patient's chart. Sean Mata DPM PRIMARY SERVICE: [facility] Pod[facility] SUBJECTIVE: Patient is seen today [...] tablet by mouth once daily. DEXCOM G7 REEL HOOKER 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 DEXCOM G7 SENSOR eduin [...] [M25.571, G89.29] Order(s):MRI ANKLE WO IVCON RIGHT [[id number]] Order #: [id number] FUTURE Prescriptions as of 05/16/2025 - keTORolac (TORADOL) 10 mg tablet Take 1 tablet by mouth every 6 hours as needed. with food. - aspirin 325 mg tablet Take 1 tablet by mouth once daily. - DEXCOM G7 REEL HOOKER 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 - DEXCOM G7 SENSOR [...] Arthritis of right acromioclavicular joint [M19*12/28/2024 BMI 60. (more content not included)... Normal [facility] CNOV Office Visit (LOORRM ) ----- NOEL PAUL ([id number]) 1990 F [place] Date Time Provider Department 05/16/25 2:00 PM CAST TECH JOI BLANKENSHIP During your visit today, we recorded [...] by mouth once daily. - DEXCOM G7 REEL HOOKER 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 - DEXCOM G7 SENSOR [...] Encounter Status:Closed by BEVERLY DOBSON on 05/16/25 Normal [facility] CNOVon 05-06-2025 CNOV Office Visit (LOORRM ) ----- NOEL PAUL ([id number]) 1990 F [place] Date Time Provider Department 05/06/25 4:00 PM CAST TECH JOI PATTIE During your visit today, we recorded [...] by mouth once daily. - DEXCOM G7 REEL HOOKER 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 - DEXCOM G7 SENSOR [...] Encounter Status:Closed by BEVERLY DOBSON on 05/06/25 [facility] Additional Injections: R sub talar jointon 04-25-2025 Sean Mata DPM 04/25/2025 2:38 PM Additional Injections: R [...] these instructions. Informed Consent Consent Obtained: Verbal [place] Protocol A moment to CARE was completed. [...] the bedside nurse for hospitalized patients) applicable. [facility] CNOVon 04-25-2025 CNOV Office Visit (LOORRM ) ----- NOEL PAUL ([id number]) 1990 F [place] Date Time Provider Department 04/25/25 3:00 PM CAST TECH JOI GALLAGHER During your visit today, we recorded the following information about you: Beverly Dobson Cast Tech 04/25/2025 3:14 PM Signed Applied A Short Leg Weightbearing Cast to the right leg. Instructions on cast care given. A medium Cast Shoe was dispensed. Will f/u as scheduled/prn. Beverly Dobson, CT Allergies As of Date: 04/25/2025 Noted Allergy [...] by mouth once daily. - DEXCOM G7 REEL HOOKER 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 - DEXCOM G7 SENSOR [...] Encounter Status:Closed by BEVERLY DOBSON on 04/25/25 [facility] CN Office Visit (RAYMONDORRM ) ----- NOEL PAUL ([id number]) 1990 F [place] Date Time Provider Department 04/25/25 2:00 PM SEAN MATA During your visit today, we recorded the following information about you: Sean Mata, SHITAL 04/25/2025 2:38 PM Signed PRIMARY SERVICE: [facility] SUBJECTIVE: Patient is seen today [...] by mouth once daily. - DEXCOM G7 REEL HOOKER 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 - DEXCOM G7 SENSOR [...] these instructions. Informed Consent Consent Obtained: Verbal [place] Protocol A moment to CARE was completed. [...] right [M25.571] Order(s):Additional Injections: R subtalar joint [[id number]] Order #: [id number] CAST DAVID LEG, SHORT(WALKING) [[id number]] Order #: [id number] [] BUPivacaine (PF) 0.5 % (5 mg/mL) 1 mL injectionDisp: Rfl: [] triamcinolone acetonide (more content not included)... Normal [facility] CNCOon 03-28-2025 CNCO Letter Text Normal [facility] CNOVon 03-14-2025 CNOV Office Visit (LOORRM ) ----- NOEL PAUL ([id number]) 1990 F [place] Date Time Provider Department 03/14/25 3:45 PM SEAN MATA LOORRM During your visit today, we recorded the following information about you: Sean Mata, DPMadi 03/14/2025 4:01 PM Signed PRIMARY SERVICE: [facility] SUBJECTIVE: Patient is seen today [...] for up to 10 days. DEXCOM G7 REEL HOOKER 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 DEXCOM G7 SENSOR eduin [...] [Z98.890] Order(s):XR FOOT GENERAL 3V AP/LAT/OBL RIGHT [[id number]] Order #: [id number] FUTURE XR FOOT GENERAL 3V AP/LAT/OBL RIGHT [[id number]] Order #: [id number] FUTURE Prescriptions as of 03/14/2025 - keTORolac (TORADOL) 10 mg tablet Take 1 tablet by mouth every 6 hours as needed. with food. - aspirin 325 mg tablet Take 1 tablet by mouth once daily. - DEXCOM G7 REEL HOOKER 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 - DEXCOM G7 SENSOR [...] Arthritis of right acromioclavicular joint [M19*12/28/2024 BMI 6 (more content not included)... Normal [facility] XR FOOT 3V AP/LAT/OBL RTon 0 03-14-2025 XR FOOT 3V AP/LAT/OBL RT * * [...] interval change. IMPRESSION: No significant interval change. Head Of Data: PSCB Transcribe Date/Time: Mar 14 2025 4:01P Dictated by : NEO PERLA MD This examination was interpreted and the report reviewed and electronically signed by: NEO PERLA MD on Mar 14 2025 4:02PM EST [id number] Normal [facility] XR Foot - right AP and Later al and obliqueon 03-14-2025 IMPRESSION: No significant interval change. Head Of Data: HERNÁN Transcribe Date/Time: Mar 14 2025 4:01P Dictated by : NEO PERLA MD This examination was interpreted and the report reviewed and electronically signed by: NEO PERLA MD on Mar 14 2025 4:02PM [facility] DIVISION OF RADIOLOGY * * *Final Report* [...] acute fracture or other significant interval change. DIVISION OF RADIOLOGY Provider, [facility] - 03/14/2025 * * *Final Report* * * DATE [...] acute fracture or other significant interval change. IMPRESSION IMPRESSION: No significant interval change. Head Of Data: HERNÁN Transcribe Date/Time: Mar 14 2025 4:01P Dictated by : NEO PERLA MD This examination was interpreted and the report reviewed and electronically signed by: NEO PERLA MD on Mar 14 2025 4:02PM EST [facility] Radiology Study observation (narrative) [facility] XR Foot - right AP and Later al and obliqueOrdered By: Ccf Provider [facility] 03-14-2025 [facility] Telephone (ORQ) ----- MELCHORNOEL Tadeo ([id number]) 1990 F [place] Date Time Provider Department 02/20/25 SEAN MATA ORJose Carlos During your visit today, we recorded the following information about you: Marva Bhardwaj 02/20/2025 4:08 PM Signed Bonilla from [facility] PT Dept is calling Sean Mata DPM today to request weightbearing guide lines for patient PT [phone] ext [phone] FAX [phone] Patient has been identified by name and birthdate. Duration of symptoms: N/A Person calling: caregiver: Call patient at: [phone] (home) [phone] (cell) Was an appointment scheduled: No Closing statement: Results or non-symptom based questions: Thank you for calling [facility], your call will be returned within the next business day. Chris Geller OCCA 02/20/2025 4:21 PM Signed Called and [...] by mouth once daily. - DEXCOM G7 REEL HOOKER 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 - DEXCOM G7 SENSOR [...] Encounter Status:Closed by CHRIS BHATT on 02/20/25 [facility] CNOVon 02-13-2025 CNOV Office Visit (LOORRM ) ----- SUZINOEL ORTIZ ([id number]) 1990 F [place] Date Time Provider Department 02/13/25 9:45 AM SEAN MATA LOORRMadi During your visit today, we recorded the following information about you: Sean Mata, SHITAL 02/13/2025 10:05 AM Signed PRIMARY SERVICE: [facility] SUBJECTIVE: Patient is seen today [...] up to 10 days. - DEXCOM G7 REEL HOOKER 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 - DEXCOM G7 SENSOR [...] [Z98.890] Order(s):XR FOOT GENERAL 3V AP/LAT/OBL RIGHT [[id number]] Order #: [id number] FUTURE CONSULT TO PHYSICAL THERAPY [9079] Order #: [id number]: 1 FUTURE Prescriptions as of 02/13/2025 - keTORolac (TORADOL) 10 mg tablet Take 1 tablet by mouth every 6 hours as needed. with food. - aspirin 325 mg tablet Take 1 tablet by mouth once daily. - DEXCOM G7 REEL HOOKER 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 - DEXCOM G7 SENSOR [...] Date 02/13 (more content not included)... Normal [facility] CNOV Office Visit (LOORRM ) ----- NOEL PAUL ([id number]) 1990 F [place] Date Time Provider Department 02/13/25 9:30 AM CAST TECH JOI [facility] During your visit today, we recorded the following information about you: Beverly Dobson Cast Tech 02/13/2025 10:15 AM Signed Patient in today for scheduled appointment. Cast removed. Right leg cleansed with Cavilon. Examined by Dr. Mata. Fitted with a medium Short Pneumatic Walker for the right leg. Instructions on application, adjustments and care given. Will f/u as scheduled/prn. Beverly Dobson CT Allergies As of Date: 02/13/2025 Noted [...] by mouth once daily. - DEXCOM G7 REEL HOOKER 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 - DEXCOM G7 SENSOR [...] Encounter Status:Closed by BEVERLY DOBSON on 02/13/25 Normal [facility] XR FOOT 3V AP/LAT/OBL RTon 0 [...] interval change. IMPRESSION: Postoperative findings, as described. Head Of Data: PSCB Transcribe Date/Time: Feb 13 2025 9:26A Dictated by : MONALISA HOLGUIN MD This examination was interpreted and the report reviewed and electronically signed by: ANGEAL VEGAS MD on Feb 13 2025 10:19AM EST [id number] Normal [facility] XR Foot - right AP and Later al and obliqueon 02-13-2025 IMPRESSION: Postoperative findings, as described. Head Of Data: [facility] Transcribe Date/Time: Feb 13 2025 9:26A Dictated [...] significant interval change. DIVISION OF RADIOLOGY Provider, [facility] - 02/13/2025 * * *Final Report* * [...] change. IMPRESSION IMPRESSION: Postoperative findings, as described. Head Of Data: PSCB Transcribe Date/Time: Feb 13 2025 9:26A Dictated by : MONALISA HOLGUIN MD This examination was interpreted and the report reviewed and electronically signed by: ANGELA VEGAS MD on Feb 13 2025 10:19AM EST [facility] Radiology Study observation (narrative) [facility] XR Foot - right AP and Later al and obliqueOrdered By: Ccf Provider on 02-13-2025 [facility] CNOVon 01-23-2025 CNOV Office Visit (LOORRM ) ----- NOEL PAUL ([id number]) 1990 F [place] Date Time Provider Department 01/23/25 11:30 AM SEAN MATAORRMadi During your visit today, we recorded the following information about you: Sean Mata DPM 01/23/2025 11:47 AM Signed PRIMARY SERVICE: [facility] SUBJECTIVE: Patient is seen today [...] for up to 10 days. DEXCOM G7 REEL HOOKER 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 DEXCOM G7 SENSOR eduin [...] refer to physical therapy. SIGNATURE: SHITAL Ward Natalia, CT 01/23/2025 12:18 PM Signed Addended by: [...] [Q74.2] Order(s):XR FOOT GENERAL 3V AP/LAT/OBL RIGHT [[id number]] Order #: [id number] FUTURE PARKING FOR HANDICAPPED [[id number]] Order #: [id number] Prescriptions as of 01/23/2025 - keTORolac (TORADOL) 10 mg tablet Take 1 tablet by mouth every 6 hours as needed. with food. - aspirin 325 mg tablet Take 1 tablet by mouth once daily. - DEXCOM G7 REEL HOOKER 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 - DEXCOM G7 SENSOR [...] - oxyCOD (more content not included)... Normal [facility] CNOV Office Visit (LOORRM ) ----- NOEL [id number]) 1990 F [place] Date Time Provider Department 01/23/25 11:30 AM CAST TECH JOI BLANKENSHIP During your visit today, we recorded the following information about you: Beverly Dboson Cast Tech 01/23/2025 11:52 AM Signed Patient [...] by mouth once daily. - DEXCOM G7 REEL HOOKER 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 - DEXCOM G7 SENSOR [...] Encounter Status:Closed by BEVERLY DOBSON on 01/23/25 Normal [facility] CNCOon 01-09-2025 CNCO Letter Text Normal [facility] CNOVon 01-09-2025 CNOV Office Visit (LOORRM ) ----- NOEL PAUL ([id number]) 1990 F [facility] Date Time Provider Department 01/09/25 10:15 AM SEAN MATA During your visit today, we recorded the following information about you: Sean Mata, SHITAL 01/09/2025 10:55 AM Signed PRIMARY SERVICE: [facility] SUBJECTIVE: Patient is seen today for her first scheduled postop visit with her family present 9 days status post a revision of modified Kidner procedure of her right foot without complaints. Medical: PAST MEDICAL HISTORY Diagnosis Date Diabetes mellitus ([facility]) GERD (gastroesophageal reflux disease) Obesity AQUILES (obstructive [...] for up to 10 days. DEXCOM G7 REEL HOOKER 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 DEXCOM G7 SENSOR eduin [...] [Q74.2] Order(s):XR FOOT GENERAL 3V AP/LAT/OBL RIGHT [[id number]] Order #: [id number] FUTURE Prescriptions as of 01/09/2025 - keTORolac (TORADOL) 10 mg tablet Take 1 tablet by mouth every 6 hours as needed. with food. - aspirin 325 mg tablet Take 1 tablet by mouth once daily. - promethazine (PHENERGAN) 12.5 mg tablet Take 1 tablet by mouth every 8 hours as needed for up to 10 days. - DEXCOM G7 REEL HOOKER 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 - DEXCOM G7 SENSOR [...] Noted R (more content not included)... Normal [facility] Office Visit (LOORR ) ----- NOEL PAUL ([id number]) 1990 F [place] Date Time Provider Department [...] up to 10 days. - DEXCOM G7 REEL HOOKER 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 - DEXCOM G7 SENSOR [...] Encounter Status:Closed by SHAYLEE CONCEPCION on 01/09/25 [facility] CNPNon 01-02-2025 CNPN Telephone (LOORRM) ----- NOEL PAUL ([id number]) 1990 F [place] Date Time Provider Department 01/02/25 SEAN MATA During your visit today, we recorded the following information about you: Sean Mata DPM 01/02/2025 12:40 PM Signed Called patient at [phone] to return call regarding pain management. I [...] up to 5 days. - DEXCOM G7 REEL HOOKER 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 - DEXCOM G7 SENSOR [...] Encounter Status:Closed by SEAN MATA on 01/02/25 [facility] ANES POSTPROC EVALon 025 ANES POSTPROC EVAL HNO ID: [id number] Author: PETER BROWN MD Service: Anesthesiology Author Type: Anesthesiologist Type: Anesthesia Postprocedure Evaluation Filed: 12/31/2024 11:19 Note Text: POST ANESTHESIA EVALUATION NOTE : 1990 Procedure Summary Date: 12/31/24 Room / Location: [place] [address] / [facility] Anesthesia Start: 0738 Anesthesia Stop: 1006 Procedure: RECONSTRUCTION POSTERIOR TIBIAL TENDON W/EXCISION OF ACCESSORY TARSAL NAVICULAR BONE (Right: Foot) Diagnosis: 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]) Surgeons: Sean Mata DPM Responsible Provider: Peter Brwon MD Anesthesia Type: general ASA Status: 3 [...] December 31, 2024 TIME: 11:19 AM CSN: [id number] Normal [facility] ANES PRE-OPon 12-31-2024 ANES PRE-OP HNO ID: [id number] Author: PETER BROWN MD Service: Anesthesiology Author Type: Anesthesiologist Type: Anesthesia Preprocedure Evaluation Filed: 12/31/2024 07:32 Note Text: ANESTHESIOLOGY DAY OF SURGERY NOTE : 1990 Procedure Information Date/Time: 12/31/24729 Procedure: RECONSTRUCTION POSTERIOR TIBIAL TENDON W/EXCISION OF ACCESSORY TARSAL NAVICULAR BONE (Right: Foot) Location: [place] [address] / [facility] Surgeons: Sean Mata DPM Estimated body mass index is 62.06 kg/m? as calculated from the following: Height as of 12/28/24: 157.5 cm (5' 2 ). Weight as of 12/28/24: 153.9 kg (339 lb 4.6 oz). Most recent hematocrit and potassium results: No results found for this basename: HCT,HEMATOCRIT,K,POTASSIU M Relevant Problems ANESTHESIA (+) AQUILES (obstructive sleep [...] of 12/31/2024 Medication Sig - DEXCOM G7 REEL HOOKER 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 - DEXCOM G7 SENSOR [...] December 31, 2024 TIME: 7:31 AM CSN: [id number] Normal [facility] BRIEF OP NOTon 12-31-2024 BRIEF OP NOT HNO ID: [id number] Author: SEAN MATA DPM Service: Podiatry Author Type: Physician Type: Brief Op Note Filed: 12/31/2024 09:42 Note Text: BRIEF OPERATIVE / PROCEDURE NOTE LOG ID: [id number] SURGERY/PROCEDURE DATE: 12/31/2024 INCISION/PROCEDURE START TIME: 8:16 AM INCISION CLOSE/PROCEDURE END TIME: SURGEON(S)/PROCEDURALIST( S) AND WILD LIFE PHOTOGRAPHER(S): Surgeons and Role: * Sean Mata DPM [...] December 31, 2024 TIME: 9:39 AM [facility] Telephone (ORQ) ----- NOEL PAUL ([id number]) 1990 F [place] Date Time Provider Department 12/31/24 SEAN MATA ORQ During your visit today, we recorded the [...] calling: self Call patient at: at home [phone] (home) [phone] (cell) Was an appointment scheduled: No Closing statement: Results or non-symptom based questions: Thank you for calling [facility], your call will be returned within the next business day. Karissa Torrez MA 12/31/2024 3:26 PM Signed Message has been sent directly to Dr Mata's phone. Sean Mata DPM 01/01/2025 3:53 PM Signed Called patient at her Lonnie's cell number at [phone] to check on postop progress. Received voicemail. Left message that I called. Called patient back at 8:41 PM to same number. Spoke with who said she was doing well without any significant pain or problems at this time. Advised to call if any questions or problems between now and her first scheduled postop visit on January 09, 2025. SHITAL Ward Maria, ABA 01/02/2025 10:44 AM Signed Pt is identified [...] up to 5 days. - DEXCOM G7 REEL HOOKER 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 - DEXCOM G7 SENSOR [...] Status:Closed by SEAN MATA on 01/01/25 Normal [facility] OPERATIVE NOon 12-31-2024 OPERATIVE NO HNO ID: [id number] Author: SEAN MATA DPM Service: Podiatry Author Type: Physician Type: Operative Report Filed: 01/24/2025 08:37 Note Text: [facility] - Operative Report [address] [address] [place] NOEL PAUL : 1990 AGE: 34. SEX: F PATIENT TYPE: OP HOSP SVC: ORTS LOCATION: [place] [address] ATTENDING PHYSICIAN: Sean Mata DPM CSN NUMBER: [id number] DATE OF SURGERY/PROCEDURE: 12/31/2024 INCISION/PROCEDURE START TIME: 8:16 a.m. INCISION CLOSE/PROCEDURE END TIME: 9:43 a.m. The procedure was performed in conjunction with the resident who was present in the operating room today under my direct supervision from skin to skin. PREOPERATIVE DIAGNOSIS: Painful remaining accessory navicular, right foot. POSTOPERATIVE DIAGNOSIS: Painful remaining accessory navicular, right foot. SURGEON: Sean Mata DPM WILD LIFE PHOTOGRAPHER: Maurice Bernard D.P.M. SURGERY/PROCEDURE: Revisional modified Kidner procedure, right foot, CPT 46719. ANESTHESIA: General with a local field block consisting of 20 mL of 2% lidocaine plain. LOCATION: [facility]. HEMOSTASIS: Right pneumatic thigh tourniquet at [...] with a SutureTak, we then used some [id number] sutures distally to the distal (more content not included)... Normal [facility] Pathology biopsy report Joseph (Tiss)on 12-31-2024 CASE REPORT Normal [facility] Comment on above: Order Comment: Speci men Type: TISSUE SPECIMENOrdering Facility: [facility] Address: [address] [place] [address] Result Comment: Surg ical Pathology Report Case: [id number] Authorizing Provider: Sean Mata, Collected: 12/31/2024 09:51 AM DPM Ordering Location: Ambulatory Surgery Received: 12/31/2024 01:28 PM Pathologist: Shemar Pablo MD Specimen: Bone and Soft Tissue, right foot Performed By: #### 6 6121-5 ####[facility] LABORATORYCLIA [id number] [place] [address] [facility] LABCLIA [id number] [facility] [id number] OF [facility] CLINICAL HISTORY Normal [facility] Comment on above: Order Comment: Speci men Type: TISSUE SPECIMENOrdering Facility: [facility] Address: [address] [place] [address] Result Comment: Pre- op diagnosis: 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] Performed By: #### 6 6121-5 ####[facility]ORATORYCLIA [id number] [place] [address] [facility] LABCLIA [id number] [address] FINAL DIAGNOSIS Normal [facility] Comment on above: Order Comment: Speci men Type: TISSUE SPECIMENOrdering Facility: [facility] Address: [address] [place] [address] Result Comment: A. B one, right foot, excision: - Osteocartilaginous tissue with degenerative changes and granulation tissue. Performed By: #### 6 6121-5 ####[facility]PITAL[facility] [id number] [place] [address] [facility] LABCLIA [id number] [address] STATES OF [facility] FINAL PERFORMING LAB Normal [facility] Comment on above: Order Comment: Speci men Type: TISSUE SPECIMENOrdering Facility: [facility] Address: [address] [place] [address] Result Comment: Diag nostic interpretation performed at: [facility], [address] [facility] [address] CLIA# [id number] Woodworking Machine Setter: Fermín Ojeda MD Performed By: #### 6 6121-5 ####[facility]ENTER[facility]IA [id number] [place] [address] [facility] LABCLIA [id number] [address] OF [place] DESCRIPTION Normal [facility] Comment on above: Order Comment: Speci men Type: TISSUE SPECIMENOrdering Facility: [facility] Address: [address] [place] [address] Result Comment: A. B one and Soft Tissue Received in formalin, labeled right foot are multiple irregular fragments of mccarthy, hard bone measuring 3 x 3 x 0.9 cm in aggregate. Sectioning reveals mccarthy, hard bone. No gross necrotic areas identified. Oil Gauger sections are submitted in A1 following formic decalcification. KSZ January 01, 2025 10:57 AM Gross examination performed at [facility], [address] [facility], [place] [address] Performed By: #### 6 6121-5 ####[facility]ORATORYCLIA [id number] [facility] [place] [address] [facility] LABCLIA [id number] [facility] [id number] [id number] [facility] HISTORY PHYSICALon HISTORY PHYSICAL HNO ID: [id number] Author: ARY ROCHA APRN.IRENE Service: ? Author Type: Nurse Practitioner Type: H&P Filed: 12/28/2024 10:56 Note Text: [facility] HISTORY AND PHYSICAL EXAMINATION SERVICE DATE: 12/28/2024 SERVICE TIME: 10:08 AM PRIMARY CARE PHYSICIAN: Monique Emmanuel CNP, FITNESS SERVICES MANAGER REASON FOR VISIT: Noel Paul is [...] STOP-Bang Score: STOP-Bang Score: 0 (Awaiting CPAP) [id number] Score: Age: <65 Sex: female [id number] Score: ARISCAT Score: Age: <=50 Preoperative SpO2: [...] chart review and guidance on proceeding at [facility]. Per Dr Goetz, patient may proceed as scheduled at [facility] CONSULTS: Anesthesia Consult chart review The Following [...] oxyCODONE-acetaminophen (PERCOCET) 5-325 mg tablet Take 1 t (more content not included)... Normal [facility] CNOVon 12-12-2024 CNOV Office Visit (LOORRM ) ----- MELCHORIVANI ([id number]) 1990 F [place] Date Time Provider Department 12/12/24 10:00 AM SEAN MATA During your visit today, we recorded the following information about you: Sean Mata DPM 12/12/2024 10:46 AM Signed [facility] Department of Orthopedics [facility] Orthopedic Surgery Name: Noel Paul Date [...] Current Outpatient Medications Medication Sig DEXCOM G7 REEL HOOKER 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 - DEXCOM G7 SENSOR [...] 1 CA (more content not included)... 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 [place] Santanan 12/14/2024 11:58 AM Signed Spoke to patient and she elected to schedule right foot surgery with Dr. Mata for 12/31/24. Allergies As of Date: 12/12/2024 Noted Allergy Reaction SULFA (SULFONAMIDE ANTIBIOTICS) 03/29/2024 4 - Hives 2 - Rash Date Reviewed: 12/12/2024 Reviewed by: Natalia Barrios, CT - Fully Assessed Reason for Visit: Surgical Followup [104] Prescriptions as of 12/14/2024 - DEXCOM G7 REEL HOOKER 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 - DEXCOM G7 SENSOR [...] Status:Closed by CATHY SANTANA on 12/12/24 Normal [facility] XR FOOT 3V AP/LAT/OBL RTon 0 [...] unremarkable. IMPRESSION: No fracture or joint dislocation. Head Of Data: HERNÁN Transcribe Date/Time: Dec 12 2024 9:37A Dictated by : LUX WILLETT MD This examination was interpreted and the report reviewed and electronically signed by: LUC AVILES MD on Dec 12 2024 11:47AM EST [id number] Normal [facility] XR Foot - right AP and Later al and obliqueon 12-12-2024 IMPRESSION: No fracture or joint dislocation. Head Of Data: PSCB Transcribe Date/Time: Dec 12 2024 9:37A [...] appear unremarkable. DIVISION OF RADIOLOGY Provider, Iris Bateman [facility] - 12/12/2024 * * *Final Report* [...] IMPRESSION IMPRESSION: No fracture or joint dislocation. Head Of Data: [facility] Transcribe Date/Time: Dec 12 2024 9:37A Dictated by : LUX WILLETT MD This examination was interpreted and the report reviewed and electronically signed by: LUC AVILES MD on Dec 12 2024 11:47AM EST [facility] Radiology Study observation (narrative) [facility] XR Foot - right AP and Later al and obliqueOrdered By: Ccf Provider on 12-12-2024 [facility] 36on 12-04-2024 36 Spoke with patient a nd let her know that per Dr. Her she can bring the disc in and he will take a look at the images and let her know. [facility] 36on 12-03-2024 36 Patient would like t o know if she can get in earlier than her rescheduled appt since she had to cancel. Patient would like to drop off her MRI results sooner than her appt as well. Please advise at [phone] [facility] Telephoneon 12-03-2024 Telephone [phone] Noel Paul 1990 F Date Provider Department Center 12/03/2024 76512-OFDWBATIMBO HURTADO MP ORTHO MPORTHO No family history on file Reason for Visit and Comments: Appointment [375] [facility] 36on 11-29-2024 36 LVM with patient yoni t she will need to bring disc in. Scheduled patient for Tuesday12/03/24 at 10:30 am [facility] 36 Patient would like t o know if she needs to make an appointment to bring in her MRI results or if you have received them? Office Support Associate does not see them in the chart. Please advise at [phone] [facility] Office Visiton 11-26-2024 Follow-up visit [id number] Noel Paul 1990 Date Provider Department Center 11/26/2024 264-KAT HER MP ORTHO MPORTHO No family history on file Level of Service:49698 MT OFFICE/OUTPATIENT NEW LOW MDM 30 MINUTES (GC) Reason for Visit and Comments: Pain [136] [facility] 36on 11-23-2024 36 LVM to confirm appt [facility] Surgical Pathology Reporton 09-12-2024 Surgical Pathology Report [address] [address]- Surgical Pathology Report Collected Date/Time: 09/05/2024 08:32 [...] DIAGNOSIS. Addition of clinical information only. Normal [facility] Comment on above: Performed By: #### 4 [id number] #### [facility] [address] [place] [address] Surgical Pathology Reporton 09-11-2024 Surgical Pathology Report [address] [address]- Surgical Pathology Report Collected Date/Time: 09/05/2024 08:32 EDT Pathologist: Joon LONG PhD, Benito Piedra Received Date/Time: 09/06/2024 07:35 EDT Rodo ISAACS, Pato Avelar DPM, Pato Hudsno Surgical Pathology Report - 09/11/2024 15:59 EDT [...] examination performed unless gross only specified. Normal [facility] Comment on above: Performed By: #### 4 [id number] #### [facility] [address] [place] [address] Calcium [Mass/volume] in Ser um or PlasmaOrdered By: Sean Ruano on 05-16-2024 Calcium [Mass/Vol] 8.8 mg/dL 8.6-10.3 [facility] Carbon dioxide, total [Moles /volume] in Serum or PlasmaOrdered By: Sean Ruano on 05-16-2024 CO2 [Moles/Vol] 27.3 mmol/L 21.0-31.0 [facility] Chloride [Moles/volume] in S nikkie or PlasmaOrdered By: Sean Ruano on 05-16-2024 Chloride [Moles/Vol] 105 mmol/L 98-107 [facility] Creatinine [Mass/volume] in Serum or PlasmaOrdered By: Sean Ruano on 05-16-2024 Creatinine [Mass/Vol] 0.66 mg/dL 0.60-1.20 [facility] Glucose Glucometer (BldC) [M ass/Vol]Ordered By: Pato Avelar on 05-16-2024 Glucose [Mass/Vol] 106 mg/dL [facility] Comment on above: Random Glucose Refer ence Range is dependent on time and content of last meal. Glucose of more than 200 mg/dL in a nonstressed, ambulatory subject supports the diagnosis of Diabetes Mellitus. Glucose [Mass/volume] in Ser um or PlasmaOrdered By: Sean Ruano on 05-16-2024 Glucose [Mass/Vol] 107 mg/dL 70-100 [facility] Comment on above: ADA recommended refe rence rangeRandom Glucose Reference Range is dependent on time and content of last meal. Glucose of more than 200 mg/dL in a nonstressed, ambulatory subject supports the diagnosis of Diabetes Mellitus. HCG ( test) IA.rapi d Ql (U)Ordered By: Sean Ruano on 05-16-2024 HCG ( test) Ql (U) Negative [facility] No Panel InformationOrdered By: Pato Avelar on 05-16-2024 Bedside Glucose Comment Glu2: cleaned meter [facility] No Panel InformationOrdered By: Sean Ruano on 05-16-2024 Estimated GFR (CKD-EPI) > 60.0 mL/Min [facility] Creatinine Clearance (Chem 161.75 [facility] Potassium [Moles/volume] in Serum or PlasmaOrdered By: Sean Ruano on 05-16-2024 Potassium [Moles/Vol] 3.8 mmol/L 3.5-5.1 [facility] Serum or plasma anion gap de terminationOrdered By: Sean Ruano on 05-16-2024 Anion gap [Moles/Vol] 9.5 mmol/L 6.0-15.0 [facility] Sodium [Moles/volume] in Ser um or PlasmaOrdered By: Sean Ruano on 05-16-2024 Sodium [Moles/Vol] 138 mmol/L 136-145 [facility] Urea nitrogen [Mass/volume] in Serum or PlasmaOrdered By: Sean Ruano on 05-16-2024 Urea nitrogen [Mass/Vol] 17 mg/dL 06-21 [facility] CBC w/ Auto Diffon 4 Basophils/100 WBC (Bld) 0.5 % Normal 0.0-2.0 [facility] Comment on above: Performed By: #### 2 [id number] #### [facility] [address] [place] [address] Basophils/Leukocytes Auto (Bld) [Pure # fraction] 0.1 E9/L Normal 0.0-0.2 [facility] Comment on above: Performed By: #### 2 [id number] #### [facility] [address] [place] [address] Eosinophils (Bld) [#/Vol] 0.3 E9/L Normal 0.0-0.5 [facility] Comment on above: Performed By: #### 2 770320 #### [facility] [address] [place] [address] Eosinophils/100 WBC (Bld) 2.9 % Normal 0.0-8.0 [facility] Comment on above: Performed By: #### 2 [id number] #### [facility] [address] [place] [address] Erythrocyte distribution width (RBC) [Ratio] 15.6 % High 10.9-14.2 [facility] Comment on above: Performed By: #### 2 [id number] #### [facility] [address] [place] [address] Hematocrit (Bld) [Volume fraction] 39.9 % Normal 34.0-46.0 [facility] Comment on above: Performed By: #### 2 [id number] #### [facility] [address] [place] [address] Hemoglobin (Bld) [Mass/Vol] 12.8 g/dL Normal 12.0-16.0 [facility] Comment on above: Performed By: #### 2 597926 #### [facility] [address] [place] [address] Lymphocytes (Bld) [#/Vol] 2.3 E9/L Normal 1.0-4.0 [facility] Comment on above: Performed By: #### 2 935686 #### [facility] [address] [place] [address] Lymphocytes/100 WBC (Bld) 20.9 % Normal 14.0-50.0 [facility] Comment on above: Performed By: #### 2 605479 #### [facility] [address] [place] [address] MCH (RBC) [Entitic mass] 25.4 pg Low 27.0-34.0 [facility] Comment on above: Performed By: #### 2 [id number] #### [facility] [address] [place] [address] MCHC (RBC) [Mass/Vol] 32.2 g/dL Normal 31.4-36.0 [facility] Comment on above: Performed By: #### 2 386392 #### [facility] [address] [place] [address] MCV (RBC) [Entitic vol] 79.0 fL Low 80.0-100.0 [facility] Comment on above: Performed By: #### 2 173995 #### [facility] [address] [place] [address] Monocytes (Bld) [#/Vol] 0.7 E9/L Normal 0.2-1.0 [facility] Comment on above: Performed By: #### 2 576581 #### [facility] [address] [place] [address] Neutrophils (Bld) [#/Vol] 7.7 E9/L High 2.0-7.5 [facility] Comment on above: Performed By: #### 2 945707 #### [facility] [address] [place] [address] Neutrophils/100 WBC (Bld) 69.3 % Normal 36.0-75.0 [facility] Comment on above: Performed By: #### 2 731745 #### [facility] [address] [place] [address] Platelet mean volume (Bld) [Entitic vol] 8.3 fL Normal 6.4-10.8 [facility] Comment on above: Performed By: #### 2 472073 #### [facility] [address] [place] [address] Platelets (Bld) [#/Vol] 346.0 E9/L Normal 150.0-500. 0 [facility] Comment on above: Performed By: #### 2 080899 #### [facility] [address] [place] [address] RBC (Bld) [#/Vol] 5.1 E12/L Normal 4.3-5.9 [facility] Comment on above: Performed By: #### 2 260762 #### [facility] [address] [place] [address] WBC corrected for nucl RBC Auto (Bld) [#/Vol] 11.1 E9/L High 4.0-11.0 [facility] Comment on above: Performed By: #### 2 741745 #### [facility] [address] [place] [address] Consent for Treatmenton 03-29 Consent for Treatment [id number] Normal [facility] HEMATOLOGYOrdered By: SYSTEM SYSTEM on 04-25-2024 [...] Remisol Heme Physician Orderon 04-18-2024 Physician Order [id number] Normal [facility] GLYCOHEMOGLOBIN A1Con 2022 ADA RECOMMENDATION SEE BELOW Normal [facility] Comment on above: Result Comment: ADA RECOMMENDED LIMIT 4.0 - 6.0 ADA THERAPEUTIC TARGET < 7.0 ACTION SUGGESTED > 7.0 Performed By: #### A 1C #### [facility] [address] [place] [address] Dr. Benito Dupree Glucose [Mass/Vol] 105 mg/dL Normal [facility] Comment on above: Performed By: #### A 1C #### [facility] [address] [address] [address] Benito Dupree HbA1c (Bld) [Mass fraction] 5.3 % Normal 4.5-6.2 [facility] Comment on above: Performed By: #### A 1C #### [facility] [address] [place] [address] Dr. Benito Dupree Cov[facility]-19 [facility]on SARS-CoV-2 (COVID-19) RNA MUKUND+probe Ql (Unsp spec) Not detected Normal NOT DETECTED [facility] Comment on above: Result Comment: This test is not yet approved or cleared by the [place] FDA. When there are no FDA-approved or cleared tests available, and other criteria are met, FDA can make tests available under an emergency access mechanism called an Emergency Use Authorization (EUA). The EUA for this test is supported by the [place] of Health and Human Service's (HHS's) declaration [...] SARS-CoV-2. Performed By: #### C VDTBH #### [facility] [address] [place] [address] Dr. Benito Dupree INFLUENZA A AND B AGon 01-05 INFLUANEGH SEE BELOW Normal [facility] Comment on above: Result Comment: Nega tive for Flu A protein angiten. Infection due to Flu A cannot be ruled out. Flu A angiten in the sample may be below the detection limit of the test. Performed By: #### I NFLUAB #### [facility] [address] [place] [address] Dr. Benito Dupree INFLUBNEG SEE BELOW Normal [facility] Comment on above: Result Comment: Nega tive for Flu B protein antigen. Infection due to Flu B cannot be ruled out. Flu B antigen in the sample may be below the detection limit of the test. Performed By: #### I NFLUAB #### [facility] [address] [place] [address] Dr. Benito Dupree INFLUENZA A AG Negative Normal NEGATIVE SEE COMMENT [facility] Comment on above: Performed By: #### I NFLUAB #### [facility] [address] [place] [address] Dr. Benito Dupree INFLUENZA B AG Negative Normal NEGATIVE SEE COMMENT [facility] Comment on above: Performed By: #### I NFLUAB #### [facility] [address] [place] [address] Dr. Benito Dupree GLYCOHEMOGLOBIN A1Con 2021 ADA RECOMMENDATION SEE BELOW Normal [facility] Comment on above: Result Comment: ADA RECOMMENDED LIMIT 4.0 - 6.0 ADA THERAPEUTIC TARGET < 7.0 ACTION SUGGESTED > 7.0 Performed By: #### A 1C #### [facility] [address] [place] [address] Dr. Benito Dupree Glucose [Mass/Vol] 143 mg/dL Normal [facility] Comment on above: Performed By: #### A 1C #### [facility] [address] [address] [address] Benito Dupree HbA1c (Bld) [Mass fraction] 6.6 % Critically high 4.5-6.2 [facility] Comment on above: Performed By: #### A 1C #### [facility] [address] [address] [address] Benito Dupree LIPID PROFILEon 11-15-2022 CHOL-HDL RATIO NORM SEE BELOW Normal [facility] Comment on above: Result Comment: 3.3 - 4.4 LOW RISK 4.4 - 7.1 AVERAGE RISK 7.1 - 11.0 MODERATE RISK >11.0 HIGH RISK Performed By: #### I NFLUAB #### [facility] [address] [address] [address] Benito Dupree Cholesterol [Mass/Vol] 154 mg/dL Normal <=200 [facility] Comment on above: Performed By: #### I NFLUAB #### [facility] [address] [address] [address] Benito Dupree Cholesterol in HDL [Mass/Vol] 29 mg/dL Critically low 40-60 [facility] Comment on above: Performed By: #### I NFLUAB #### [facility] [address] [address] [address] Benito Dupree Cholesterol in LDL [Mass/Vol] 98.2 mg/dL Normal [facility] Comment on above: Performed By: #### I NFLUAB #### [facility] [address] [address] [address] Benito Dupree Cholesterol.total/Chol esterol in HDL [Mass ratio] 5.3 {ratio} Normal [facility] Comment on above: Performed By: #### I NFLUAB #### [facility] [address] [address] [address] Benito Dupree HDL NORMAL > or = 60 mg/dl - LO W CARDIOVASCULAR RISK <40 mg/dl - HIGH CARDIOVASCULAR RISK Normal [facility] Comment on above: Performed By: #### I NFLUAB #### [facility] [address] [address] [address] Benito Dupree LDL CALC NORMAL SEE BELOW Normal [facility] Comment on above: Result Comment: <100 mg/dl OPTIMAL 100 - 129 mg/dl NEAR OR ABOVE OPTIMAL 130 - 159 mg/dl BORDERLINE HIGH 160 - 189 mg/dl HIGH >190 mg/dl VERY HIGH Performed By: #### I NFLUAB #### [facility] [address] [place] [address] Dr. Benito Dupree Triglyceride [Mass/Vol] 134 mg/dL Normal <=150 [facility] Comment on above: Performed By: #### I NFLUAB #### [facility] [address] [place] [address] Dr. Benito Dupree VLDL CALC 26.8 mg/dL Normal [facility] Comment on above: Performed By: #### I NFLUAB #### [facility] [address] [address] [address] Benito Dupree INSULINon 08-19-2022 Insulin 24.3 uIU/mL Normal 2.6-24.9 [facility] Comment on above: Performed By: #### I NFLUAB #### [facility] [address] [place] [address] Dr. Benito Dupree T4, T3U, FTI LABCORPon 08-19 Free Thyroxine Index 2.6 Normal 1.2-4.9 [facility] Comment on above: Performed By: #### T HYLC #### [facility] [address] [place] [address] Dr. Benito Dupree T3 Uptake 29 % Normal 24-39 [facility] Comment on above: Performed By: #### T HYLC #### [facility] [address] [address] [address] Benito Dupree T4 [Mass/Vol] 8.8 ug/dL Normal 4.5-12.0 [facility] Comment on above: Performed By: #### T HYLC #### [facility] [address] [address] [address] Benito Dupree CBC AUTO DIFFon 08-18-2022 BASO # 0.1 103/ul Normal 0.0-0.1 [facility] Comment on above: Performed By: #### I NFLUAB #### [facility] [address] [place] [address] Dr. Benito Dupree Basophils/100 WBC (Bld) 0.8 % Normal 0.2-2.0 [facility] Comment on above: Performed By: #### I NFLUAB #### [facility] [address] [place] [address] Dr. Benito Dupree EO # 0.3 103/ul Normal 0.0-0.7 [facility] Comment on above: Performed By: #### I NFLUAB #### [facility] [address] [place] [address] Dr. Benito Dupree Eosinophils/100 WBC (Bld) 2.8 % Normal 0.9-7.0 [facility] Comment on above: Performed By: #### I NFLUAB #### [facility] [address] [place] [address] Dr. Benito Dupree Erythrocyte distribution width (RBC) [Ratio] 15.4 % Critically high 11.0-15.0 [facility] Comment on above: Performed By: #### I NFLUAB #### [facility] [address] [place] [address] Dr. Benito Dupree Hematocrit (Bld) [Volume fraction] 43.7 % Normal 36.0-48.0 [facility] Comment on above: Performed By: #### I NFLUAB #### [facility] [address] [place] [address] Dr. Benito Dupree Hemoglobin (Bld) [Mass/Vol] 14.2 g/dL Normal 12.0-16.0 [facility] Comment on above: Performed By: #### I NFLUAB #### [facility] [address] [place] [address] Dr. Benito Dupree IG # 0.08 10e3/ul Critically high 0.00-0.03 [facility] Comment on above: Performed By: #### I NFLUAB #### [facility] [address] [address] [address] Benito Dupree IG % 0.9 % Critically high 0.0-0.5 [facility] Comment on above: Performed By: #### I NFLUAB #### [facility] [address] [address] [address] Benito Dupree LYMPH # 2.3 103/ul Normal 1.2-3.8 [facility] Comment on above: Performed By: #### I NFLUAB #### [facility] [address] [address] [address] Benito Dupree Lymphocytes/100 WBC (Bld) 24.3 % Normal 20.5-60.0 [facility] Comment on above: Performed By: #### I NFLUAB #### [facility] [address] [address] [address] Benito Dupree MANUAL DIFF REQ NO Normal [facility] Comment on above: Performed By: #### I NFLUAB #### [facility] [address] [address] [address] Benito Dupree MCH (RBC) [Entitic mass] 26.1 pg Critically low 26.7-34.0 [facility] Comment on above: Performed By: #### I NFLUAB #### [facility] [address] [address] [address] Benito Dupree MCHC (RBC) [Mass/Vol] 32.5 g/dL Normal 29.9-35.2 [facility] Comment on above: Performed By: #### I NFLUAB #### [facility] [address] [address] [address] Benito Dupree MCV (RBC) [Entitic vol] 80.2 fL Critically low 81.0-99.0 [facility] Comment on above: Performed By: #### I NFLUAB #### [facility] [address] [address] [address] Benito Dupree MONO # 0.5 103/ul Normal 0.3-0.8 [facility] Comment on above: Performed By: #### I NFLUAB #### [facility] [address] [address] [address] Benito Dupree Monocytes/100 WBC (Bld) 5.2 % Normal 1.7-12.0 [facility] Comment on above: Performed By: #### I NFLUAB #### [facility] [address] [address] [address] Benito Dupree NEUT # 6.1 103/ul Normal 1.4-6.5 [facility] Comment on above: Performed By: #### I NFLUAB #### [facility] [address] [place] [address] Dr. Benito Dupree Neutrophils/100 WBC (Bld) 66.0 % Normal 43.0-75.0 [facility] Comment on above: Performed By: #### I NFLUAB #### [facility] [address] [place] [address] Dr. Benito Dupree Platelet mean volume (Bld) [Entitic vol] 9.9 fL Normal 9.5-13.5 [facility] Comment on above: Performed By: #### I NFLUAB #### [facility] [address] [place] [address] Dr. Benito Dupree PLT 291 103/ul Normal 150-450 [facility] Comment on above: Performed By: #### I NFLUAB #### [facility] [address] [place] [address] Dr. Benito Dupree RBC 5.45 106/ul Critically high 4.20-5.40 [facility] Comment on above: Performed By: #### I NFLUAB #### [facility] [address] [place] [address] Dr. Benito Dupree WBC 9.3 103/ul Normal 4.0-11.0 [facility] Comment on above: Performed By: #### I NFLUAB #### [facility] [address] [place] [address] Dr. Benito Dupree DIRECT LDLon 08-18-2022 Cholesterol in LDL [Mass/Vol] 50 mg/dL Normal [facility] Comment on above: Performed By: #### T HYLC #### [facility] [address] [address] [address] Benito Dupree DLDL NORMAL SEE BELOW Normal [facility] Comment on above: Result Comment: <100 mg/dl OPTIMAL 100 - 129 mg/dl NEAR OR ABOVE OPTIMAL 130 - 159 mg/dl BORDERLINE HIGH 160 - 189 mg/dl HIGH >190 mg/dl VERY HIGH Performed By: #### T HYLC #### [facility] [address] [address] [address] Benito Dupree GLYCOHEMOGLOBIN A1Con 2021 ADA RECOMMENDATION SEE BELOW Normal [facility] Comment on above: Result Comment: ADA RECOMMENDED LIMIT 4.0 - 6.0 ADA THERAPEUTIC TARGET < 7.0 ACTION SUGGESTED > 7.0 Performed By: #### A 1C #### [facility] [address] [address] [address] Benito Dupree Glucose [Mass/Vol] 332 mg/dL Normal [facility] Comment on above: Performed By: #### A 1C #### [facility] [address] [address] [address] Benito Dupree HbA1c (Bld) [Mass fraction] 13.2 % Critically high 4.5-6.2 [facility] Comment on above: Performed By: #### A 1C #### [facility] [address] [place] [address] Dr. Benito Dupree IRONon 08-18-2022 Iron [Mass/Vol] 53.0 ug/dL Normal 50.0-170.0 [facility] Comment on above: Performed By: #### I NFLUAB #### [facility] [address] [address] [address] Benito Dupree LIPID PROFILEon 08-18-2022 CHOL-HDL RATIO NORM SEE BELOW Normal [facility] Comment on above: Result Comment: 3.3 - 4.4 LOW RISK 4.4 - 7.1 AVERAGE RISK 7.1 - 11.0 MODERATE RISK >11.0 HIGH RISK Performed By: #### T HYLC #### [facility] [address] [address] [address] Benito Dupree Cholesterol [Mass/Vol] 260 mg/dL Critically high <=200 [facility] Comment on above: Performed By: #### T HYLC #### [facility] [address] [address] [address] Benito Dupree Cholesterol in HDL [Mass/Vol] 23 mg/dL Critically low 40-60 [facility] Comment on above: Performed By: #### T HYLC #### [facility] [address] [address] [address] Benito Dupree Cholesterol.total/Chol esterol in HDL [Mass ratio] 11.3 {ratio} Normal [facility] Comment on above: Performed By: #### T HYLC #### [facility] [address] [place] [address] Dr. Benito Dupree HDL NORMAL > or = 60 mg/dl - LO W CARDIOVASCULAR RISK <40 mg/dl - HIGH CARDIOVASCULAR RISK Normal [facility] Comment on above: Performed By: #### T HYLC #### [facility] [address] [address] [address] Benito Dupree Triglyceride [Mass/Vol] 1711 mg/dL Critically high <=150 [facility] Comment on above: Performed By: #### T HYLC #### [facility] [address] [place] [address] Dr. Benito Dupree VLDL CALC 342.2 mg/dL Normal [facility] Comment on above: Performed By: #### T HYLC #### [facility] [address] [address] [address] Benito Dupree PROF 14(COMP METB)on 022 Albumin [Mass/Vol] 3.2 g/dL Critically low 3.4-5.0 [facility] Comment on above: Performed By: #### T HYLC #### [facility] [address] [address] [address] Benito Dupree Albumin/Globulin [Mass ratio] 0.7 {ratio} Normal [facility] Comment on above: Performed By: #### T HYLC #### [facility] [address] [address] [address] Benito Dupree ALP [Catalytic activity/Vol] 92 U/L Normal 46-116 [facility] Comment on above: Performed By: #### T HYLC #### [facility] [address] [place] [address] Dr. Benito Dupree ALT [Catalytic activity/Vol] 41 U/L Normal 14-59 [facility] Comment on above: Performed By: #### T HYLC #### [facility] [address] [address] [address] Benito Dupree Anion gap [Moles/Vol] 14.1 mmol/L Normal [facility] Comment on above: Performed By: #### T HYLC #### [facility] [address] [place] [address] Dr. Benito Dupree AST [Catalytic activity/Vol] 16 U/L Normal 15-37 [facility] Comment on above: Performed By: #### T HYLC #### [facility] [address] [place] [address] Dr. Benito Dupree Bilirubin [Mass/Vol] 0.9 mg/dL Normal 0.2-1.0 [facility] Comment on above: Performed By: #### T HYLC #### [facility] [address] [place] [address] Dr. Benito Dupree Calcium [Mass/Vol] 9.1 mg/dL Normal 8.5-10.1 [facility] Comment on above: Performed By: #### T HYLC #### [facility] [address] [place] [address] Dr. Benito Dupree Chloride [Moles/Vol] 97 mmol/L Critically low 98-107 [facility] Comment on above: Performed By: #### T HYLC #### [facility] [address] [address] [address] Benito Dupree CO2 [Moles/Vol] 24.9 mmol/L Normal 21.0-32.0 [facility] Comment on above: Performed By: #### T HYLC #### [facility] [address] [place] [address] Dr. Benito Dupree Creatinine [Mass/Vol] 0.67 mg/dL Normal 0.55-1.02 [facility] Comment on above: Performed By: #### T HYLC #### [facility] [address] [place] [address] Dr. Benito Dupree EGFR-AF UZBEK >60 Normal >=60 [facility] Comment on above: Performed By: #### T HYLC #### [facility] [address] [address] [address] Benito Dupree EGFR-NON AF UZBEK >60 Normal >=60 [facility] Comment on above: Performed By: #### T HYLC #### [facility] [address] [place] [address] Dr. Benito Dupree Globulin (S) [Mass/Vol] 4.6 g/dL Normal [facility] Comment on above: Performed By: #### T HYLC #### [facility] [address] [place] [address] Dr. Benito Dupree Glucose [Mass/Vol] 402 mg/dL Critically high 74-106 [facility] Comment on above: Performed By: #### T HYLC #### [facility] [address] [place] [address] Dr. Benito Dupree Potassium [Moles/Vol] 4.0 mmol/L Normal 3.5-5.1 [facility] Comment on above: Performed By: #### T HYLC #### [facility] [address] [place] [address] Dr. Benito Dupree Protein [Mass/Vol] 7.8 g/dL Normal 6.4-8.2 [facility] Comment on above: Performed By: #### T HYLC #### [facility] [address] [place] [address] Dr. Benito Dupree Sodium [Moles/Vol] 132 mmol/L Critically low 136-145 [facility] Comment on above: Performed By: #### T HYLC #### [facility] [address] [place] [address] Dr. Benito Dupree Urea nitrogen [Mass/Vol] 10.0 mg/dL Normal 7.0-18.0 [facility] Comment on above: Performed By: #### T HYLC #### [facility] [address] [place] [address] Dr. Benito Dupree Urea nitrogen/Creatinine [Mass ratio] 14.9 mg/mg Normal [facility] Comment on above: Performed By: #### T HYLC #### [facility] [address] [place] [address] Dr. Benito Dupree TSHon 08-18-2022 TSH 3.676 uIU/mL Normal 0.358-3.74 0 [facility] Comment on above: Performed By: #### T HYLC #### [facility] [address] [place] [address] Dr. Benito Dupree VITAMIN D 25 OHon 08-18-2022 VIT D 25-OH 13.9 ng/mL Normal [facility] Comment on above: Performed By: #### I NFLUAB #### [facility] [address] [place] [address] Dr. Benito Dupree VIT D RANGES SEE BELOW Normal [facility] Comment on above: Result Comment: <20 ng/mL Vit D deficient 20 - <30 ng/mL Vit D insufficient 30 - 100 ng/mL Vit D sufficient >100 ng/mL Potential Toxicity Performed By: #### I NFLUAB #### [facility] [address] [place] [address] Dr. Benito Dupree AMYLASEon 06-01-2022 Amylase [Catalytic activity/Vol] 29 U/L Normal 25-115 [facility] Comment on above: Performed By: #### I NFLUAB #### [facility] [address] [place] [address] Dr. Benito Dupree CBC AUTO DIFFon 06-01-2022 BASO # 0.1 103/ul Normal 0.0-0.1 [facility] Comment on above: Performed By: #### I NFLUAB #### [facility] [address] [place] [address] Dr. Benito Dupree Basophils/100 WBC (Bld) 0.5 % Normal 0.2-2.0 [facility] Comment on above: Performed By: #### I NFLUAB #### [facility] [address] [place] [address] Dr. Benito Dupree EO # 0.3 103/ul Normal 0.0-0.7 [facility] Comment on above: Performed By: #### I NFLUAB #### [facility] [address] [place] [address] Dr. Benito Dupree Eosinophils/100 WBC (Bld) 2.0 % Normal 0.9-7.0 [facility] Comment on above: Performed By: #### I NFLUAB #### [facility] [address] [place] [address] Dr. Benito Dupree Erythrocyte distribution width (RBC) [Ratio] 15.3 % Critically high 11.0-15.0 [facility] Comment on above: Performed By: #### I NFLUAB #### [facility] [address] [place] [address] Dr. Benito Dupree Hematocrit (Bld) [Volume fraction] 41.5 % Normal 36.0-48.0 [facility] Comment on above: Performed By: #### I NFLUAB #### [facility] [address] [place] [address] Dr. Benito Dupree Hemoglobin (Bld) [Mass/Vol] 12.7 g/dL Normal 12.0-16.0 [facility] Comment on above: Performed By: #### I NFLUAB #### [facility] [address] [place] [address] Dr. Benito Dupree IG # 0.06 10e3/ul Critically high 0.00-0.03 [facility] Comment on above: Performed By: #### I NFLUAB #### [facility] [address] [place] [address] Dr. Benito Dupree IG % 0.4 % Normal 0.0-0.5 [facility] Comment on above: Performed By: #### I NFLUAB #### [facility] [address] [place] [address] Dr. Benito Dupree LYMPH # 1.9 103/ul Normal 1.2-3.8 [facility] Comment on above: Performed By: #### I NFLUAB #### [facility] [address] [place] [address] Dr. Benito Dupree Lymphocytes/100 WBC (Bld) 13.9 % Critically low 20.5-60.0 [facility] Comment on above: Performed By: #### I NFLUAB #### [facility] [address] [place] [address] Dr. Benito Dupree MANUAL DIFF REQ NO Normal [facility] Comment on above: Performed By: #### I NFLUAB #### [facility] [address] [place] [address] Dr. Benito Dupree MCH (RBC) [Entitic mass] 24.7 pg Critically low 26.7-34.0 [facility] Comment on above: Performed By: #### I NFLUAB #### [facility] [address] [place] [address] Dr. Benito Dupree MCHC (RBC) [Mass/Vol] 30.6 g/dL Normal 29.9-35.2 [facility] Comment on above: Performed By: #### I NFLUAB #### [facility] [address] [place] [address] Dr. Benito Dupree MCV (RBC) [Entitic vol] 80.6 fL Critically low 81.0-99.0 [facility] Comment on above: Performed By: #### I NFLUAB #### [facility] [address] [place] [address] Dr. Benito Dupree MONO # 0.5 103/ul Normal 0.3-0.8 [facility] Comment on above: Performed By: #### I NFLUAB #### [facility] [address] [place] [address] Dr. Benito Dupree Monocytes/100 WBC (Bld) 4.0 % Normal 1.7-12.0 [facility] Comment on above: Performed By: #### I NFLUAB #### [facility] [address] [place] [address] Dr. Benito Dupree NEUT # 10.6 103/ul Critically high 1.4-6.5 [facility] Comment on above: Performed By: #### I NFLUAB #### [facility] [address] [place] [address] Dr. Benito Dupree Neutrophils/100 WBC (Bld) 79.2 % Critically high 43.0-75.0 [facility] Comment on above: Performed By: #### I NFLUAB #### [facility] [address] [place] [address] Dr. Benito Dupree Platelet mean volume (Bld) [Entitic vol] 9.3 fL Critically low 9.5-13.5 [facility] Comment on above: Performed By: #### I NFLUAB #### [facility] [address] [place] [address] Dr. Benito Dupree PLT 391 103/ul Normal 150-450 [facility] Comment on above: Performed By: #### I NFLUAB #### [facility] [address] [place] [address] Dr. Benito Dupree RBC 5.15 106/ul Normal 4.20-5.40 [facility] Comment on above: Performed By: #### I NFLUAB #### [facility] [address] [place] [address] Dr. Benito Dupree WBC 13.4 103/ul Critically high 4.0-11.0 [facility] Comment on above: Performed By: #### I NFLUAB #### [facility] [address] [place] [address] ABD/PELV W CONon 06-01-20 CT ABD/PELV W CON EXAMINATION: CT ABD/ PELV W CON HISTORY: GENERALIZED ABDOMINAL PAIN COMPARISON: [...] WESTLEY JHA Date: 2022-06-01 14:59 Normal [facility] ER URINE PROFILEon 2 Bilirubin Ql (U) Negative Normal NEGATIVE [facility] Comment on above: Performed By: #### U MICRO, ERUR #### [facility] [address] [place] [address] Dr. Benito Dupree Clarity (U) SL CLOUDY Abnormal CLEAR [facility] Comment on above: Performed By: #### U MICRO, ERUR #### [facility] [address] [place] [address] Dr. Benito Dupree Color (U) YELLOW Normal YELLOW [facility] Comment on above: Performed By: #### U MICRO, ERUR #### [facility] [address] [address] [address] Benito Dupree ERUAHD A micrscopic examina tion will be performed if indicated. Normal [facility] Comment on above: Performed By: #### U MICRO, ERUR #### [facility] [address] [place] [address] Dr. Benito Dupree Glucose Ql (U) Negative Normal NEGATIVE [facility] Comment on above: Performed By: #### U MICRO, ERUR #### [facility] [address] [place] [address] Dr. Benito Dupree Hemoglobin Ql (U) LARGE Abnormal NEGATIVE [facility] Comment on above: Performed By: #### U MICRO, ERUR #### [facility] [address] [place] [address] Dr. Benito Dupree Ketones Ql (U) Negative Normal NEGATIVE [facility] Comment on above: Performed By: #### U MICRO, ERUR #### [facility] [address] [place] [address] Dr. Benito Dupree LEUKOCYTES Negative Normal NEGATIVE [facility] Comment on above: Performed By: #### U MICRO, ERUR #### [facility] [address] [place] [address] Dr. Benito Dupree Nitrite Ql (U) Negative Normal NEGATIVE [facility] Comment on above: Performed By: #### U MICRO, ERUR #### [facility] [address] [place] [address] Dr. Benito Dupree pH (U) 5.5 [pH] Normal 5-9 [facility] Comment on above: Performed By: #### U MICRO, ERUR #### [facility] [address] [place] [address] Dr. Benito Dupree SPEC GRAVITY 1.010 Normal 1.005-<=1. 025 [facility] Comment on above: Performed By: #### U MICRO, ERUR #### [facility] [address] [place] [address] Dr. Benito Dupere UA PROTEIN TRACE Normal NEGATIVE/ TRACE [facility] Comment on above: Performed By: #### U MICRO, ERUR #### [facility] [address] [address] [address] Benito Dupree UR MICRO IND INDICATED Normal [facility] Comment on above: Performed By: #### U MICRO, ERUR #### [facility] [address] [place] [address] Dr. Benito Dupree Urobilinogen Qn (U) 1.0 {Tuyet'U}/dL Normal 0.2 - 1. 0 [facility] Comment on above: Performed By: #### U MICRO, ERUR #### [facility] [address] [place] [address] Dr. Benito Dupree LACTATE/LACTIC ACIDon 2021 Lactate [Moles/Vol] 1.1 mmol/L Normal 0.4-1.9 [facility] Comment on above: Performed By: #### L ACT #### [facility] [address] [place] [address] Dr. Benito Dupree LIPASEon 06-01-2022 Lipase [Catalytic activity/Vol] 111.0 U/L Normal 73.0-393.0 [facility] Comment on above: Performed By: #### I NFLUAB #### [facility] [address] [place] [address] Dr. Benito Dupree PREG HCG QUALon 06-01-2022 , QUAL Negative Normal NEGATIVE [facility] Comment on above: Performed By: #### P REG #### [facility] [address] [place] [address] Dr. Benito Dupree PROF 14(COMP METB)on 022 Albumin [Mass/Vol] 3.6 g/dL Normal 3.4-5.0 [facility] Comment on above: Performed By: #### I NFLUAB #### [facility] [address] [place] [address] Dr. Benito Dupree Albumin/Globulin [Mass ratio] 0.7 {ratio} Normal [facility] Comment on above: Performed By: #### I NFLUAB #### [facility] [address] [place] [address] Dr. Benito Dupree ALP [Catalytic activity/Vol] 90 U/L Normal 46-116 [facility] Comment on above: Performed By: #### I NFLUAB #### [facility] [address] [place] [address] Dr. Benito Dupree ALT [Catalytic activity/Vol] 39 U/L Normal 14-59 [facility] Comment on above: Performed By: #### I NFLUAB #### [facility] [address] [place] [address] Dr. Benito Dupree Anion gap [Moles/Vol] 13.0 mmol/L Normal [facility] Comment on above: Performed By: #### I NFLUAB #### [facility] [address] [address] [address] Benito Dupree AST [Catalytic activity/Vol] 25 U/L Normal 15-37 [facility] Comment on above: Performed By: #### I NFLUAB #### [facility] [address] [address] [address] Benito Dupree Bilirubin [Mass/Vol] 1.1 mg/dL Critically high 0.2-1.0 [facility] Comment on above: Performed By: #### I NFLUAB #### [facility] [address] [address] [address] Benito Dupere Calcium [Mass/Vol] 9.4 mg/dL Normal 8.5-10.1 [facility] Comment on above: Performed By: #### I NFLUAB #### [facility] [address] [address] [address] Benito Dupree Chloride [Moles/Vol] 99 mmol/L Normal 98-107 [facility] Comment on above: Performed By: #### I NFLUAB #### [facility] [address] [address] [address] Benito Dupree CO2 [Moles/Vol] 27.3 mmol/L Normal 21.0-32.0 [facility] Comment on above: Performed By: #### I NFLUAB #### [facility] [address] [address] [address] Benito Dupree Creatinine [Mass/Vol] 0.87 mg/dL Normal 0.55-1.02 [facility] Comment on above: Performed By: #### I NFLUAB #### [facility] [address] [place] [address] Dr. Benito Dupree EGFR-AF UZBEK >60 Normal >=60 [facility] Comment on above: Performed By: #### I NFLUAB #### [facility] [address] [address] [address] Benito Dupree EGFR-NON AF UZBEK >60 Normal >=60 [facility] Comment on above: Performed By: #### I NFLUAB #### [facility] [address] [address] [address] Benito Dupree Globulin (S) [Mass/Vol] 4.8 g/dL Normal [facility] Comment on above: Performed By: #### I NFLUAB #### [facility] [address] [address] [address] Benito Dupree Glucose [Mass/Vol] 218 mg/dL Critically high 74-106 [facility] Comment on above: Performed By: #### I NFLUAB #### [facility] [address] [address] [address] Benito Dupree Potassium [Moles/Vol] 4.1 mmol/L Normal 3.5-5.1 [facility] Comment on above: Performed By: #### I NFLUAB #### [facility] [address] [place] [address] Dr. Benito Dupree Protein [Mass/Vol] 8.4 g/dL Critically high 6.4-8.2 [facility] Comment on above: Performed By: #### I NFLUAB #### [facility] [address] [place] [address] Dr. Benito Dupree Sodium [Moles/Vol] 135 mmol/L Critically low 136-145 [facility] Comment on above: Performed By: #### I NFLUAB #### [facility] [address] [place] [address] Dr. Benito Dupree Urea nitrogen [Mass/Vol] 15.0 mg/dL Normal 7.0-18.0 [facility] Comment on above: Performed By: #### I NFLUAB #### [facility] [address] [place] [address] Dr. Benito Dupree Urea nitrogen/Creatinine [Mass ratio] 17.2 mg/mg Normal [facility] Comment on above: Performed By: #### I NFLUAB #### [facility] [address] [place] [address] Dr. Benito Dupree URINE MICROSCOPIC ONLYon BACTERIA TRACE Abnormal NONE SEEN [facility] Comment on above: Performed By: #### U MICRO, ERUR #### [facility] [address] [address] [address] Benito Dupree Bacteria identified Cx Nom (U) NOT INDICATED Normal [facility] Comment on above: Performed By: #### U MICRO, ERUR #### [facility] [address] [address] [address] Benito Dupree CAST NONE SEEN Normal NONE SEEN [facility] Comment on above: Performed By: #### U MICRO, ERUR #### [facility] [address] [address] [address] Benito Dupree Crystals LM Nom (Urine sed) NONE SEEN Normal NONE SEEN [facility] Comment on above: Performed By: #### U MICRO, ERUR #### [facility] [address] [address] [address] Benito Dupree Epithelial cells LM Ql (Urine sed) MODERATE Abnormal NONE SEEN /RARE [facility] Comment on above: Performed By: #### U MICRO, ERUR #### [facility] [address] [address] [address] Benito Dupree MUCOUS TRACE Abnormal NONE SEEN [facility] Comment on above: Performed By: #### U MICRO, ERUR #### [facility] [address] [address] [address] Benito Dupree RBC 2-5 Abnormal 0-2 [facility] Comment on above: Performed By: #### U MICRO, ERUR #### [facility] [address] [address] [address] Benito Dupree WBC 0-2 Abnormal NONE SEEN [facility] Comment on above: Performed By: #### U MICRO, ERUR #### [facility] [address] [address] [address] Benito Dupree XR hand RT min 3V*on 022 XR hand RT min 3V* [facility] [employer] Other XR hand RT min 3V* [facility] [employer] Other XR hand RT min 3V* [address] [employer] Other XR hand RT min 3V* YOMAIRA Yadav [address] [employer] Other XR hand RT min 3V* XRay Report [employer] Other XR hand RT min 3V* Signed [employer] Other XR hand RT min 3V* Patient: Noel Paul MR#: [id number] [employer] Other XR hand RT min 3V* : 1990 Acct:[id number] [employer] Other XR hand RT min 3V* Age/Sex: 31 / F ADM Date: 03/22/22 [employer] Other XR hand RT min 3V* Loc: XDUCLY Room: pe: [facility] [employer] Other XR hand RT min 3V* Attending Dr: Monique SANDOVAL [employer] Other XR hand RT min 3V* Ordering Provider: LORI Woodard [employer] Other XR hand RT min 3V* Date of Service: 03/22/22 [employer] Other XR hand RT min 3V* XR/XR hand RT min 3V*: Finger pain, right [employer] Other XR hand RT min 3V* Copies to: LORI Dias [employer] Other XR hand RT min 3V* [address] film [employer] Other XR hand RT min 3V* COMPARISON:None N [employer] Other XR hand RT min 3V* HISTORY:Fell going upstairs. RIGHT ring finger injury. [employer] Other XR hand RT min 3V* No fracture, disloca tion or focal soft tissue abnormality seen. [employer] Other XR hand RT min 3V* X R/XR hand RT min 3V* [employer] Other XR hand RT min 3V* IMPRESSION:No acute findings [employer] Other XR hand RT min 3V* Impression dictated by: Ta Galvan M.D.03/22/2022 4:42 PM [employer] Other XR hand RT min 3V* Dictation Location: [place] [address] [employer] Other XR hand RT min 3V* Transcribed By: [facility] 03/22/22 [facility] [employer] Other XR hand RT min 3V* Dictated By: Glnen Galvan DO 03/22/22 [facility] [employer] Other XR hand RT min 3V* Signed By: [employer] Other XR hand RT min 3V* 03/22/[address] [place] [address] [employer] Other Vital Signs Date Time Vital Sign Value Performing Clinician Facility 2025 14:15-0400 Body height 157.48 cm Monique Emmanuel NP-C Work Phone: [facility] 2025 14:15-0400 Body mass index (BMI) [Ratio] 62.4 kg/m2 Monique Emmanuel MARKER MACHINE-C Work Phone: [facility] 2025 14:15-0400 Body weight 154.67 kg Monique Emmanuel MARKER MACHINE-C Work Phone: [facility] 2025 14:15-0400 Diastolic blood pressure 80 mm[Hg] Monique Emmanuel MARKER MACHINE-C Work Phone: [facility] 2025 14:15-0400 Heart rate 86 /min Monique Lien MARKER MACHINE-C Work Phone: [facility] 2025 14:15-0400 Respiratory rate 18 /min Monique Lien MARKER MACHINE-C Work Phone: [facility] 2025 14:15-0400 SaO2% (BldA) [Mass fraction] 97 % Monique Lien MARKER MACHINE-C Work Phone: [facility] 2025 14:15-0400 Systolic blood pressure 114 mm[Hg] Monique Lien MARKER MACHINE-C Work Phone: [facility] 06-16-2025 11:26-0400 Body temperature 98 [degF] Monique Lien MARKER MACHINE-C Work Phone: [facility] 06-16-2025 11:26-0400 Diastolic blood pressure 85 mm[Hg] Monique Lien MARKER MACHINE-C Work Phone: [facility] 06-16-2025 11:26-0400 Heart rate 78 /min Monique Lien MARKER MACHINE-C Work Phone: [facility] 06-16-2025 11:26-0400 Respiratory rate 20 /min Monique Lien MARKER MACHINE-C Work Phone: [facility] 06-16-2025 11:26-0400 SaO2% (BldA) [Mass fraction] 93 % Monique Lien MARKER MACHINE-C Work Phone: [facility] 06-16-2025 11:26-0400 Systolic blood pressure 124 mm[Hg] Monique Lien MARKER MACHINE-C Work Phone: [facility] 06-16-2025 06:00-0400 Body weight 152 kg Monique Lien MARKER MACHINE-C Work Phone: [facility] 06-15-2025 03:55-0400 Body height 157.48 cm Monique Lien MARKER MACHINE-C Work Phone: [facility] 06-15-2025 03:00-0400 Diastolic blood pressure 58 mm[Hg] Monique Whitleymer MARKER MACHINE-C Work Phone: [facility] 06-15-2025 03:00-0400 Heart rate 80 /min Monique Lien MARKER MACHINE-C Work Phone: [facility] 06-15-2025 03:00-0400 Inhaled oxygen flow rate 2 L/min Monique Whitleymer MARKER MACHINE-C Work Phone: [facility] 06-15-2025 03:00-0400 Respiratory rate 18 /min Monique Lien MARKER MACHINE-C Work Phone: [facility] 06-15-2025 03:00-0400 SaO2% (BldA) [Mass fraction] 98 % Moniquegisselle Whitleymer MARKER MACHINE-C Work Phone: [facility] 06-15-2025 03:00-0400 Systolic blood pressure 126 mm[Hg] Monique Whitleymer MARKER MACHINE-C Work Phone: [facility] 06-14-2025 22:16-0400 Body height 157.48 cm Monique Lien MARKER MACHINE-C Work Phone: [facility] 06-14-2025 22:16-0400 Body temperature 98.9 [degF] Monique Lien MARKER MACHINE-C Work Phone: [facility] 06-14-2025 22:16-0400 Body weight 145.14 kg Monique Whitleymer MARKER MACHINE-C Work Phone: [facility] 03-21-2025 14:16-0400 Body height 157.5 cm Pato Avelar DPM Work Phone: [facility] 03-21-2025 14:16-0400 Body mass index (BMI) [Ratio] 56.7 kg/m2 Pato Avelar DPM Work Phone: [facility] 03-21-2025 14:16-0400 Body weight 140.62 kg Pato Avelar DPM Work Phone: [facility] 03-21-2025 14:16-0400 Respiratory rate 16 /min Pato Avelar DPM Work Phone: [facility] 03-07-2025 09:06-0400 Body height 157.5 cm Pato Avelar DPM Work Phone: [facility] 03-07-2025 09:06-0400 Body mass index (BMI) [Ratio] 56.7 kg/m2 Pato Avelar DPM Work Phone: [facility] 03-07-2025 09:06-0400 Body weight 140.62 kg Pato Avelar DPM Work Phone: [facility] 03-07-2025 09:06-0400 Respiratory rate 16 /min Pato Avelar DPM Work Phone: [facility] 02-05-2025 17:00-0400 Body height 157.48 cm [facility] 02-05-2025 17:00-0400 Body mass index (BMI) [Ratio] 59.2 kg/m2 [facility] 02-05-2025 17:00-0400 Body temperature 98.2 [degF] [facility] 02-05-2025 17:00-0400 Body weight 146.96 kg [facility] 02-05-2025 17:00-0400 Diastolic blood pressure 91 mm[Hg] [facility] 02-05-2025 17:00-0400 Heart rate 82 /min [facility] 02-05-2025 17:00-0400 Respiratory rate 18 /min [facility] 02-05-2025 17:00-0400 SaO2% (BldA) [Mass fraction] 98 % [facility] 02-05-2025 17:00-0400 Systolic blood pressure 151 mm[Hg] [facility] 12-28-2024 09:54-0500 Body height 157.5 cm Pacc 3 Work Phone: [facility] 12-28-2024 09:54-0500 Body mass index (BMI) [Ratio] 62.06 kg/m2 Pacc 3 Work Phone: [facility] 12-28-2024 09:54-0500 Body temperature 97.39 [degF] Pacc 3 Work Phone: [facility] 12-28-2024 09:54-0500 Body weight 153.9 kg Pacc 3 Work Phone: [facility] 12-28-2024 09:54-0500 Diastolic blood pressure 73 mm[Hg] Pacc 3 Work Phone: [facility] 12-28-2024 09:54-0500 Heart rate 104 /min Pacc 3 Work Phone: [facility] 12-28-2024 09:54-0500 Respiratory rate 16 /min Pacc 3 Work Phone: [facility] 12-28-2024 09:54-0500 SaO2% (BldA) [Mass fraction] 98 % Pacc 3 Work Phone: [facility] 12-28-2024 09:54-0500 Systolic blood pressure 130 mm[Hg] Pacc 3 Work Phone: [facility] 10-24-2024 14:24-0500 Body height 157.5 cm Pato Brown DPM Work Phone: [facility] 10-24-2024 14:24-0500 Body mass index (BMI) [Ratio] 56.7 kg/m2 Pato Brown DPM Work Phone: [facility] 10-24-2024 14:24-0500 Body weight 140.62 kg Pato Brown DPM Work Phone: [facility] 10-24-2024 14:24-0500 Respiratory rate 18 /min Pato Brown DPM Work Phone: [facility] 10-04-2024 14:48-0500 Body height 157.5 cm Pato Brown DPM Work Phone: [facility] 10-04-2024 14:48-0500 Body mass index (BMI) [Ratio] 56.7 kg/m2 Pato Avelar DPM Work Phone: [facility] 10-04-2024 14:48-0500 Body weight 140.62 kg Pato Avelar DPM Work Phone: [facility] 10-04-2024 14:48-0500 Diastolic blood pressure 79 mm[Hg] Pato Avelar DPM Work Phone: [facility] 10-04-2024 14:48-0500 Heart rate 82 /min Pato Avelar DPM Work Phone: [facility] 10-04-2024 14:48-0500 Systolic blood pressure 129 mm[Hg] Pato Avelar DPM Work Phone: [facility] 09-20-2024 14:37-0400 Body height 157.5 cm Pato Avelar DPM Work Phone: [facility] 09-20-2024 14:37-0400 Body mass index (BMI) [Ratio] 56.7 kg/m2 Pato Avelar DPM Work Phone: [facility] 09-20-2024 14:37-0400 Body weight 140.62 kg Pato Avelar DPM Work Phone: [facility] 09-20-2024 14:37-0400 Diastolic blood pressure 77 mm[Hg] Pato Avelar DPM Work Phone: [facility] 09-20-2024 14:37-0400 Heart rate 79 /min Ptao Avelar DPM Work Phone: [facility] 09-20-2024 14:37-0400 Systolic blood pressure 126 mm[Hg] Pato Avelar DPM Work Phone: [facility] 09-13-2024 14:46-0400 Body height 157.5 cm Pato Avelar DPM Work Phone: [facility] 09-13-2024 14:46-0400 Body mass index (BMI) [Ratio] 56.7 kg/m2 Pato Brown DPM Work Phone: [facility] 09-13-2024 14:46-0400 Body weight 140.62 kg Pato Avelar DPM Work Phone: [facility] 09-13-2024 14:46-0400 Diastolic blood pressure 78 mm[Hg] Pato Avelar DPM Work Phone: [facility] 09-13-2024 14:46-0400 Heart rate 85 /min Pato Avelar DPM Work Phone: [facility] 09-13-2024 14:46-0400 Systolic blood pressure 123 mm[Hg] Pato Avelar DPM Work Phone: [facility] 08-30-2024 14:58-0400 Body height 157.5 cm Pato Avelar DPM Work Phone: [facility] 08-30-2024 14:58-0400 Body mass index (BMI) [Ratio] 56.7 kg/m2 Pato Avelar DPM Work Phone: [facility] 08-30-2024 14:58-0400 Body weight 140.62 kg Pato Avelar DPM Work Phone: [facility] 08-30-2024 14:58-0400 Diastolic blood pressure 80 mm[Hg] Pato Avelar DPM Work Phone: [facility] 08-30-2024 14:58-0400 Heart rate 75 /min Pato Avelar DPM Work Phone: [facility] 08-30-2024 14:58-0400 Respiratory rate 18 /min Pato Avelar DPM Work Phone: [facility] 08-30-2024 14:58-0400 Systolic blood pressure 128 mm[Hg] Pato Avelar DPM Work Phone: [facility] 08-02-2024 14:52-0400 Body height 157.5 cm Pato Brown DPM Work Phone: [facility] 08-02-2024 14:52-0400 Body mass index (BMI) [Ratio] 56.7 kg/m2 Pato Avelar DPM Work Phone: [facility] 08-02-2024 14:52-0400 Body weight 140.62 kg Pato Avelar DPM Work Phone: [facility] 08-02-2024 14:52-0400 Diastolic blood pressure 79 mm[Hg] Pato Avelar DPM Work Phone: [facility] 08-02-2024 14:52-0400 Heart rate 82 /min Pato Avelar DPM Work Phone: [facility] 08-02-2024 14:52-0400 Systolic blood pressure 127 mm[Hg] Pato Avelar DPM Work Phone: [facility] 07-24-2024 14:58-0400 Body height 157.5 cm Jaime Biedenbach DO Work Phone: [facility] 07-24-2024 14:58-0400 Body mass index (BMI) [Ratio] 56.7 kg/m2 Jaime Biedenbach DO Work Phone: [facility] 07-24-2024 14:58-0400 Body weight 140.62 kg Jaime Biedenbach DO Work Phone: [facility] 05-16-2024 15:25-0400 Diastolic blood pressure 70 mm[Hg] MARKER MACHINE-C Monique Lien Work Phone: [facility] 05-16-2024 15:25-0400 Heart rate 80 /min MARKER MACHINE-C Monique Lien Work Phone: [facility] 05-16-2024 15:25-0400 Respiratory rate 22 /min MARKER MACHINE-C Monique Lien Work Phone: [facility] 05-16-2024 15:25-0400 SaO2% (BldA) [Mass fraction] 94 % MARKER MACHINE-C Monique Lien Work Phone: [facility] 05-16-2024 15:25-0400 Systolic blood pressure 124 mm[Hg] MARKER MACHINE-C Monique Emmanuel Work Phone: [facility] 05-16-2024 12:57-0400 Body temperature 98.6 [degF] MARKER MACHINE-C Monique Emmanuel Work Phone: [facility] 05-16-2024 12:57-0400 Inhaled oxygen flow rate 6 L/min MARKER MACHINE-C Monique Emmanuel Work Phone: [facility] 05-16-2024 10:38-0400 Body mass index (BMI) [Ratio] 56.5 kg/m2 [employer] Monique Emmanuel Work Phone: [facility] 05-16-2024 10:31-0400 Body height 157.48 cm MARKER MACHINE-C Monique Emmanuel Work Phone: [facility] 05-16-2024 10:31-0400 Body weight 140.16 kg MARKER MACHINE-C Monique Emmanuel Work Phone: [facility] 04-25-2024 13:27-0400 Diastolic blood pressure 85 mm[Hg] Pato Avelar [facility] 04-25-2024 13:27-0400 Heart rate 64 /min Pato Avelar [facility] 04-25-2024 13:27-0400 Mean blood pressure 103 mm[Hg] Pato Avelar [facility] 04-25-2024 13:27-0400 Systolic blood pressure 139 mm[Hg] Pato Avelar [facility] 04-25-2024 13:26-0400 Heart rate 65 /min Pato Avelar [facility] 04-25-2024 13:26-0400 Respiratory rate 16 /min Pato Avelar [facility] 04-25-2024 13:26-0400 SaO2% (BldA) [Mass fraction] 93 % Pato Avelar [facility] 04-25-2024 13:26-0400 Blood Pressure Location Pato Avelar [facility] 04-25-2024 13:26-0400 Body temperature 98.42 [degF] Pato Avelar [facility] 04-25-2024 13:26-0400 Diastolic blood pressure 83 mm[Hg] Pato Avelar [facility] 04-25-2024 13:26-0400 Mean blood pressure 100 mm[Hg] Pato Avelar [facility] 04-25-2024 13:26-0400 Systolic blood pressure 135 mm[Hg] Pato Avelar [facility] 02-27-2024 17:36-0400 Body height 154.94 cm MARKER MACHINE-C Monique Emmanuel Work Phone: [facility] 02-27-2024 17:36-0400 Body mass index (BMI) [Ratio] 58.4 kg/m2 MARK[employer] MACHINE-C Monique Emmanuel Work Phone: [facility] 02-27-2024 17:36-0400 Body temperature 97.7 [degF] MARKER MACHINE-C Monique Emmanuel Work Phone: [facility] 02-27-2024 17:36-0400 Body weight 140.38 kg MARKER MACHINE-C Monique Whitleymer Work Phone: [facility] 02-27-2024 17:36-0400 Heart rate 87 /min MARKER MACHINE-C Monique Whitleymer Work Phone: [facility] 02-27-2024 17:36-0400 Respiratory rate 18 /min MARKER MACHINE-C Monique Lien Work Phone: [facility] 02-27-2024 17:36-0400 SaO2% (BldA) [Mass fraction] 97 % MARKER MACHINE-C Monique Emmanuel Work Phone: [facility] 03-22-2022 16:45-0400 Body height 154.94 cm Monique Dudley Other [employer] Other 03-22-2022 16:45-0400 Body mass index (BMI) [Ratio] 58.38 kg/m2 Monique Dudley Other [employer] Other 03-22-2022 16:45-0400 Body temperature 97.9 [degF] Monique Dudley Other [employer] Other 03-22-2022 16:45-0400 Body weight 140.16 kg Monique Dudley Other [employer] Other 03-22-2022 16:45-0400 Diastolic blood pressure 93 mm[Hg] Monique Dudley Other [employer] Other 03-22-2022 16:45-0400 Respiratory rate 20 /min Monique Dudley Other [employer] Other 03-22-2022 16:45-0400 SaO2% (BldA) [Mass fraction] 98 % Monique Dudley Other [employer] Other 03-22-2022 16:45-0400 Systolic blood pressure 154 mm[Hg] Monique Octavia Other [facility] Other Encounters Encounter Date Encounter Type Care Provider Facility Start: 2025 End: 2025 ambulatory Monique Emmanuel MARKER MACHINE-C Work Phone: [facility] Work Phone: Start: 2025 End: 2025 Patient encounter procedure Inge Adler MD -[facility] Work Phone: Start: 06-15-2025 End: 06-16-2025 ambulatory Maryanne Mischler Facility:[facility] Start: 06-15-2025 Evaluation and manag ement of inpatient Neo Mclaughlin MD -[facility] [place] Work Phone: Start: 06-15-2025 Non-patient / Non-visit Inge abbott MD -[facility] Work Phone: Start: 06-15-2025 observation encounter Monique Emmanuel MARKER MACHINE-C Work Phone: [facility] Work Phone: Start: 06-11-2025 End: 06-11-2025 ambulatory MONIQUE EMMANUEL Facility:[facility] Start: 06-11-2025 End: 06-11-2025 Admission to same day surgery center Sean Mata DPM Work Phone: Orthopaedics Comment on above: S/P foot surgery, ri ght (Primary Dx); Chronic pain of right ankle Start: 06-11-2025 End: 06-11-2025 Telemedicine consultation with patient Sean Mata DPM Work Phone: Orthopaedics Start: 06-06-2025 ambulatory MONIQUE EMMANUEL Facilit y:[facility] Start: 06-06-2025 End: 06-06-2025 Subsequent hospital visit by physician Mri [facility] (Lg Bore/1.5t) Radiology MRI Comment on above: Chronic pain of righ t ankle [M25.571, G89.29] Start: 05-17-2025 End: 06-04-2025 Telephone encounter Sean Mata DPM Work Phone: Orthopaedics Start: 05-16-2025 End: 05-16-2025 Patient encounter procedure Sean Mata DPM Work Phone: Orthopaedics Comment on above: S/P foot surgery, ri ght (Primary Dx); Chronic pain of right ankle S/P foot surgery, ri ght (Primary Dx) Start: 05-16-2025 End: 05-16-2025 ambulatory MONIQUEGISSELLE EMMANUEL Facility:[facility] Start: 05-06-2025 End: 05-06-2025 Patient encounter procedure Cast Tech Joi Work Phone: Orthopaedics Comment on above: S/P foot surgery, ri ght (Primary Dx) Start: 05-06-2025 End: 05-06-2025 ambulatory MONIQUE S [facility] Facility:[facility] Start: 05-03-2025 End: 05-03-2025 ambulatory Sean Mata DPM Work Phone: Orthopaedics Start: 05-03-2025 End: 05-03-2025 Patient encounter procedure Sean Mata DPM Work Phone: Orthopaedics Comment on above: Cast Start: 04-25-2025 End: 04-25-2025 Patient encounter procedure Sean Mata DPM Work Phone: Orthopaedics Comment on above: Sinus tarsitis, righ t (Primary Dx) S/P foot surgery, ri ght (Primary Dx) Start: 04-25-2025 End: 04-25-2025 ambulatory [facility] Shashank [facility] Facility:[facility] Start: 04-16-2025 End: 04-16-2025 ambulatory SEAN MATA Facility:[facility] Start: 03-21-2025 End: 03-21-2025 Office outpatient visit 15 minutes Pato Avelar DPM Work Phone: [facility] Comment on above: Capsulitis of metata rsophalangeal (MTP) joint of right foot (Primary Dx); Type 2 diabetes mellitus without complication, 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 buttermaker continuous churn insulin use Start: 03-21-2025 End: 03-21-2025 ambulatory PATO AVELAR Not Available Start: 03-21-2025 End: 03-21-2025 Bamboo flowsheet Pato Avelar DPM Work Phone: [facility] Start: 03-21-2025 End: 03-21-2025 Bamboo flowsheet Pato Avelar DPM Work Phone: [facility] Start: 03-14-2025 End: 03-14-2025 Subsequent hospital visit by physician Saúl Martínez 1 Work Phone: Radiology Comment on above: S/P foot surgery, ri ght [Z98.890] Start: 03-14-2025 End: 03-14-2025 ambulatory Joya Ezra RT(R) Radiology Comment on above: Radiology XR Start: 03-14-2025 End: 03-14-2025 Patient encounter procedure Joyaelizabeth ShawEzra RT(R) Radiology Comment on above: S/P foot surgery, ri ght (Primary Dx) Start: 03-07-2025 End: 03-07-2025 Bamboo flowsheet Pato Avelar DPM Work Phone: [facility] Start: 03-07-2025 End: 03-07-2025 Bamboo flowsheet Pato Avelar DPM Work Phone: [facility] Start: 03-07-2025 End: 03-07-2025 Office outpatient visit 15 minutes Pato Avelar DPM Work Phone: [facility] Comment on above: Capsulitis of metata rsophalangeal (MTP) joint of right foot (Primary Dx) Start: 03-07-2025 End: 03-07-2025 ambulatory PATO AVELAR Not Available Start: 02-20-2025 End: 02-20-2025 Telephone encounter Sean Mata DPM Work Phone: [facility] Comment on above: Patient Update Start: 02-13-2025 End: 02-13-2025 Patient encounter procedure Maura Shell RT(R) Radiology Comment on above: S/P foot surgery, ri ght (Primary Dx) Start: 02-13-2025 End: 02-13-2025 ambulatory Maura Shell RT(R) Radiology Comment on above: Radio Gen RMP Start: 02-13-2025 End: 02-13-2025 Subsequent hospital visit by physician Saúl Martínez 1 Work Phone: Radiology Comment on above: S/P foot surgery, ri ght [Z98.890] Start: 02-05-2025 End: 02-05-2025 ambulatory [facility] Work Phone: Start: 02-05-2025 End: 02-05-2025 Patient encounter procedure [facility] Work Phone: Start: 01-23-2025 End: 01-23-2025 ambulatory SEAN MATA Facility:[facility] Start: 01-23-2025 End: 01-23-2025 Patient encounter procedure Sean Mata DPM Work Phone: Orthopaedics Comment on above: S/P foot surgery, ri ght (Primary Dx); Accessory navicular bone of right foot S/P foot surgery, ri ght (Primary Dx) Start: 01-23-2025 ambulatory SEAN MATA Facility:[facility] Start: 01-09-2025 End: 01-09-2025 ambulatory SEAN MATA Facility:[facility] Start: 01-09-2025 End: 01-09-2025 Patient encounter procedure Sean Mata DPM Work Phone: Orthopaedics Comment on above: S/P foot surgery, ri ght (Primary Dx); Accessory navicular bone of right foot S/P foot surgery, ri ght (Primary Dx) Start: 01-02-2025 End: 01-02-2025 Telephone encounter Sean Mata DPM Work Phone: Orthopaedics Start: 12-31-2024 End: 01-01-2025 Telephone encounter Sean Mata DPM Work Phone: [facility] Comment on above: Surgical Followup Start: 12-31-2024 End: 12-31-2024 ambulatory SEAN MATA Facility:[facility] Start: 12-28-2024 End: 12-28-2024 [facility] Work Phone: Pre Anest[facility] Start: 12-28-2024 End: 12-28-2024 ambulatory MONIQUE EMMANUEL Facility:[facility] Start: 12-28-2024 End: 12-28-2024 Anesthesia consultation [facility] 3 Work Phone: Pre Anesthesia Comment on above: Pre-op evaluation (P rimary Dx); Gastroesophageal reflux disease, 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 esophagitis present; Diabetes mellitus without complication (HCC); BMI 60.0-69.9, adult ([facility]); AQUILES (obstructive sleep apnea) Start: 12-28-2024 Encounter for other preprocedural examination MONIQUE EMMANUEL [facility] Start: 12-28-2024 End: 12-28-2024 Preprocedural examination done [facility] 3 Work Phone: [facility] Work Phone: Start: 12-14-2024 End: 12-14-2024 Orders [...] Mata DPM Work Phone: [facility] Comment on above: Pain (Primary Dx) Start: 11-26-2024 End: 11-26-2024 ambulatory [facility] Start: 10-24-2024 End: 10-24-2024 Postop follow up visit related to original px Pato Avelar DPM Work Phone: [facility] Comment on above: Stress fracture of r ight foot, initial encounter (Primary Dx); Type 2 diabetes mellitus without complication, 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 buttermaker continuous churn insulin use ([facility]); Accessory navicular bone of right foot Start: 10-24-2024 End: 10-24-2024 ambulatory PATO AVELAR Not Available Start: 10-24-2024 End: 10-24-2024 Bamboo flowsheet Pato Elizabeth Rodo DPM Work Phone: [facility] Start: 10-24-2024 End: 10-24-2024 Bamboo flowsheet Pato Elizabeth Rodo DPM Work Phone: [facility] Start: 10-04-2024 End: 10-04-2024 Postop follow up visit related to original px Pato Elizabeth Avelar DPM Work Phone: [facility] Comment on above: 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); Contracture of right ankle; Stress fracture of right foot, initial encounter Start: 10-04-2024 End: 10-04-2024 ambulatory PATO AVELAR Not Available Start: 10-04-2024 End: 10-04-2024 Bamboo flowsheet Pato Elizabeth Rodo DPM Work Phone: [facility] Start: 10-04-2024 End: 10-04-2024 Bamboo flowsheet Pato Elizabeth Brown DPM Work Phone: [facility] Start: 09-20-2024 End: 09-20-2024 Postop follow up visit related to original px Pato Elizabeth Brown DPM Work Phone: [facility] Comment on above: 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); Contracture of right ankle Start: 09-20-2024 End: 09-20-2024 ambulatory PATO AVELAR Not Available Start: 09-20-2024 End: 09-20-2024 Bamboo flowsheet Pato Avelar DPM Work Phone: [facility] Start: 09-20-2024 End: 09-20-2024 Bamboo flowsheet Pato Avelar DPM Work Phone: [facility] Start: 09-13-2024 End: 09-13-2024 Postop follow up visit related to original px Pato Avelar DPM Work Phone: [facility] Comment on above: 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); Contracture of right ankle; Type 2 diabetes mellitus without complication, 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 chcf insulin use (CMS/[facility]) Start: 09-13-2024 End: 09-13-2024 ambulatory PATO AVELAR Not Available Start: 09-07-2024 End: 09-07-2024 Telephone encounter Pato Avelar DPM Work Phone: [facility] Start: 09-05-2024 End: 09-05-2024 Lab Drop off Pato Avelar [facility] Start: 09-05-2024 End: 09-05-2024 ambulatory DPM Pato Avelar Facility:[facility] Start: 08-30-2024 End: 08-30-2024 Office outpatient visit 25 minutes Pato Avelar DPM Work Phone: [facility] Comment on above: 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); Type 2 diabetes mellitus without complication, 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 buttermaker continuous churn insulin use (CMS/HCC); Heel spur, left; Plantar fasciitis; Contracture of left ankle; Contracture of right ankle Start: 08-30-2024 End: 08-30-2024 ambulatory PATO AVELAR Not Available Start: 08-30-2024 End: 08-30-2024 Bamboo flowsheet Pato Avelar DPM Work Phone: [facility] Start: 08-30-2024 End: 08-30-2024 Bamboo flowsheet Pato Avelar DPM Work Phone: [facility] Start: 08-02-2024 End: 08-02-2024 Office outpatient visit 15 minutes Pato Avelar DPM Work Phone: [facility] Comment on above: 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); Posterior tibial tendonitis of right leg; Type 2 diabetes mellitus without complication, 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 chcf insulin use ([facility]) Start: 08-02-2024 End: 08-02-2024 ambulatory PATO AVELAR Not Available Start: 08-02-2024 End: 08-02-2024 Bamboo flowsheet Pato Avelar DPM Work Phone: [facility] Start: 08-02-2024 End: 08-02-2024 Bamboo flowsheet Pato Avelar DPM Work Phone: [facility] Start: 07-24-2024 End: 07-24-2024 Office outpatient new 45 minutes Jaime Camargo DO Work Phone: [facility] J[facility]OT[facility] Comment on above: Arthralgia of left t emporomandibular joint (Primary Dx); Left ear pain; Chronic rhinitis; Fullness in ear, left Start: 07-24-2024 End: 07-24-2024 ambulatory JAIME S BIEDENFELIX Not Available Start: 07-24-2024 End: 07-24-2024 Bamboo flowsheet Jaime Pantojaedandraebach DO Work Phone: [facility] Start: 07-24-2024 End: 07-24-2024 Bamboo flowsheet Jaime Paulbach DO Work Phone: [facility] Start: 07-19-2024 End: 07-19-2024 Office outpatient visit 15 minutes Pato Avelar DPM Work Phone: [facility] Comment on above: Posterior tibial ten donitis of right leg (Primary Dx); Accessory navicular bone of left foot; Type 2 diabetes mellitus without complication, 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 chcf insulin use ([facility]); Accessory navicular bone of right foot Start: [...] 05-16-2024 Admission to same day surgery center MARKER MACHINE-C Monique Emmanuel Work Phone: [facility] [place] Start: 05-16-2024 End: 05-16-2024 ambulatory MARKER MACHINE-C Monique Emmanuel Work Phone: [facility] Work Phone: Start: 05-03-2024 End: 05-03-2024 ambulatory PATO AVELAR Not Available Start: 04-25-2024 ambulatory Pato Avelar Facili ty:[facility] Start: 04-25-2024 End: 04-25-2024 ambulatory DPM Pato Avelar Facility:[facility] Start: 04-25-2024 End: 04-25-2024 Patient encounter procedure Pato Avelar [facility] Start: 04-16-2024 End: 05-10-2024 Pre-admission assessment Pato Avelar [facility] Start: 04-12-2024 End: 04-12-2024 ambulatory PATO AVELAR Not Available Start: 03-29-2024 End: 03-29-2024 ambulatory PATO AVELAR Not Available Start: 02-27-2024 End: 02-27-2024 ambulatory MARKER MACHINE-C Monique Emmanuel Work Phone: [facility] Work Phone: Start: 02-27-2024 End: 02-27-2024 Patient encounter procedure MARKER MACHINE-C Monique Emmanuel Work Phone: [facility] Work Phone: Start: [...] l adult medical examination without abnormal findings MONIQEU EMMANUEL [facility] Start: 08-18-2022 End: 08-19-2022 ambulatory MONIQUE EMMANUEL Facility:[facility] Start: 08-18-2022 End: 08-19-2022 Encounter for general adult medical examination without abnormal findings MONIQUE EMMANUEL Facility:[facility] Start: 06-01-2022 End: 06-01-[address] WESTLEY JHA Facility:[facility] Start: 03-22-2022 End: 03-22-2022 ambulatory Monique Dudley Other [facility] Other Start: 03-22-2022 Office outpatient vi sit 15 minutes Monique Dudley [facility] Procedures Date Procedure Procedure Detail Performing Clinician Start: 06-14-2025 Plain chest X-ray Shruti Emmanuel MARKER MACHINE-C Work Phone: Start: 06-06-2025 Mri any jt lower ext rem w/o contrast matrl Sean Mata DPM Work Phone: Start: 04-25-2025 Arthrocentesis aspir &/inj interm jt/burs w/o us Sean Mata DPM Work Phone: Start: 03-14-2025 Radex foot complete minimum 3 views Sean Mata DPM Work Phone: Start: 02-13-2025 Radex foot complete minimum 3 views Sean Sales Esperanza DPM Work Phone: Start: 12-12-2024 Radex foot complete minimum 3 views Sean Stewartert DPM Work Phone: Start: 05-16-2024 Debridement MARKER MACHINE-C Shruti Emmanuel Work Phone: Start: 05-16-2024 X-ray of left foot MARKER MACHINE-C Monique Emmanuel Work Phone: Start: 02-27-2024 Plain X-ray of right shoulder MARKER MACHINE-C Monique Emmanuel Work Phone: Cholecystectomy Pato pulliam Plan of Treatment Date Care Activity Detail Author Start: 07-06-2034 Urine microalbumin profile DTaP,Tdap,Td Vaccine (7 - Td or Tdap) [facility] Start: 07-29-2025 Influenza vaccination [facility] Start: 06-16-2025 [facility] Start: 06-15-2025 Sleep disorder assessment [facility] Start: 06-15-2025 End: 06-15-2025 [facility] Start: 06-15-2025 Referral to electronic news gathering editor [facility] Start: 06-15-2025 Hospital admission [facility] Start: 06-11-2025 End: 06-11-2025 Patient encounter procedure 06/11/2025 9:45 AM EDT Office Visit Orthopaedics [address] [place] [address] Sean Mata DPM [address] [place] [address] F/U, 3 weeks Orthopaedics Comment on above: F/U, 3 weeks Start: 06-06-2025 End: 06-06-2025 Patient encounter procedure 06/06/2025 8:00 AM EDT Appointment Radiology MRI [address] [place] [address] right ankle Radiology MRI Comment on above: right ankle Start: 05-16-2025 End: 05-16-2025 Patient encounter procedure Orthopaedics Comment on above: right foot F/U, 3 weeks Start: 03-21-2025 End: 03-21-2025 Patient encounter procedure 03/21/2025 2:20 PM EDT Office Visit [facility] [address] [facility] [address] [place] [address] Pato Avelar DPM [address] [facility] [address] [place] [address] Capsulitis of metatarsophalangeal (MTP) joint of right foot (Primary Dx); Type 2 diabetes mellitus without complication, 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 buttermaker continuous churn insulin use [facility] Comment on above: Capsulitis of metatarsophalangeal (MTP) joint of right foot (Primary Dx); Type 2 diabetes mellitus without complication, 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 chcf insulin use Start: 03-14-2025 End: 03-14-2025 Patient encounter procedure 03/14/2025 3:45 PM EDT Office Visit Orthopaedics [address] [place] [address] Sean Mata, DPM [address] [place] [address] Post op right foot, SX 12/31/24 Orthopaedics Comment on above: Post op right foot, SX 12/31/24 Start: 03-07-2025 End: 03-07-2025 Patient encounter procedure 03/07/2025 9:00 AM EDT Office Visit [facility] [address] [facility] [address] [place] [address] Pato Avelar, SHITAL [address] [facility] [address] [place] [address] Arrived [facility] Comment on above: Arrived Start: 02-13-2025 End: 02-13-2025 Patient encounter procedure Orthopaedics Comment on above: Post op right foot, SX 12/31/24 Start: 01-23-2025 End: 01-23-2025 Patient encounter procedure Orthopaedics Comment on above: Post op right foot, SX 12/31/24 Right Foot Start: 01-09-2025 End: 01-09-2025 Patient encounter procedure 01/09/2025 10:15 AM EST Office Visit Orthopaedics [address] [place] [address] Sean Mata, DPM [address] [place] [address] Post op right foot, SX 12/31/24 Orthopaedics Comment on above: Post op right foot, SX 12/31/24 Start: 12-31-2024 End: 12-31-2024 Admission to same day surgery center 12/31/2024 1:30 PM EST - 12/31/2024 3:30 PM EST Surgery Ambulatory Surgery [address] [place] [address] Sean Mata, DPM [address] [place] [address] RECONSTRUCTION POSTERIOR TIBIAL TENDON W/EXCISION OF ACCESSORY TARSAL NAVICULAR BONE Ambulatory Surgery Comment on above: RECONSTRUCTION POSTERIOR TIBIAL TENDON W /EXCISION OF ACCESSORY TARSAL NAVICULAR BONE Start: 12-31-2024 End: 12-31-2024 Rcnstj pst tibl tdn w/exc accessory tarsl navclr RECONSTRUCTION POSTERIOR TIBIAL TENDON W/EXCISION OF ACCESSORY TARSAL NAVICULAR BONE Accessory navicular bone of right foot 12/31/2024 1:30 PM EST [facility] Start: 12-31-2024 Subsequent hospital visit by physician 12/31/2024 1:30 PM EST Hospital Encounter Ambulatory Surgery [address] [place] [address] Sean Mata, DPM [address] [place] [address] 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] Ambulatory Surgery Comment on above: Accessory navicular bone of right foot [ Q74.2] Start: 12-31-2024 End: 12-31-2024 Admission to same day surgery center 12/31/2024 7:30 AM EST - 12/31/2024 9:25 AM EST Surgery Ambulatory Surgery [address] [place] [address] Sean Mata, DPM [address] [place] [address] RECONSTRUCTION POSTERIOR TIBIAL TENDON W/EXCISION OF ACCESSORY TARSAL NAVICULAR BONE Ambulatory Surgery Comment on above: RECONSTRUCTION POSTERIOR TIBIAL TENDON W /EXCISION OF ACCESSORY TARSAL NAVICULAR BONE Start: 12-31-2024 End: 12-31-2024 Anesthesia consultation 12/31/2024 7:30 AM EST Anesthesia Event Ambulatory Surgery [address] [place] [address] [place] [address] [place] [address] Ambulatory Surgery Start: 12-31-2024 End: 12-31-2024 Rcnstj pst tibl tdn w/exc accessory tarsl navclr RECONSTRUCTION POSTERIOR TIBIAL TENDON W/EXCISION OF ACCESSORY TARSAL NAVICULAR BONE Accessory navicular bone of right foot 12/31/2024 7:30 AM EST [facility] Start: 12-31-2024 Subsequent hospital visit by physician 12/31/2024 7:30 AM EST Hospital Encounter Ambulatory Surgery [address] [facility] [place] [address] Sean Mata, DPM [address] [place] [address] 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] Ambulatory Surgery Comment on above: Accessory navicular bone of right foot [ Q74.2] Start: 12-28-2024 End: 12-28-2024 Anesthesia consultation 12/28/2024 10:10 AM EST PAT Pre Anesthesia [address] [place] [address] PACC right foot, SX 12/31/24 Pre Anesthesia Comment on above: PACC right foot, SX 12/31/24 Start: 11-01-2024 End: 11-01-2024 Patient encounter procedure 11/01/2024 4:20 PM EST Office Visit [facility] [address] [id number] Pato Avelar DPM [address] [address] [facility] Start: 10-24-2024 End: 10-24-2024 Patient encounter procedure 10/24/2024 2:40 PM EST Office Visit [facility] [address] [place] [address] Pato Avelar DPM [address] [address] Stress fracture of right foot, initial encounter (Primary Dx); Type 2 diabetes mellitus without complication, unspecified whether chcf insulin use ([facility]) [facility] Comment on above: Stress fracture of right foot, initial e ncounter (Primary Dx); Type 2 diabetes mellitus without complication, unspecified whether chcf insulin use (CMS/HCC) Start: 10-11-2024 Hepatitis B Vaccine (3 of 3 - 3-dose series) Hepatitis B Vaccine (3 of 3 - 3-dose series) [facility] Start: 10-04-2024 End: 10-04-2024 Patient encounter procedure 10/04/2024 2:40 PM EST Office Visit [facility] [address] [facility] [address] [place] [address] Pato Avelar, CALLIEM [address] [address] 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); Contracture of right ankle [facility] Comment on above: Accessory navicular bone of right foot ( Primary Dx); Contracture of right ankle Start: 09-20-2024 End: 09-20-2024 Patient encounter procedure 09/20/2024 2:40 PM EDT Office Visit [facility] [address] [facility] [address] [place] [address] Pato Avelar DPM [address] [address] 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); Contracture of right ankle [facility] Comment on above: Accessory navicular bone of right foot ( Primary Dx); Contracture of right ankle Start: 09-13-2024 End: 09-13-2024 Patient encounter procedure 09/13/2024 3:20 PM EDT Office Visit [facility] [address] [facility] [address] [place] [address] Pato Avelar DPM [address] [address] [facility] Start: 09-12-2024 End: 09-12-2024 Patient encounter procedure 09/12/2024 3:00 PM EDT Office Visit [facility] [address] [place] [address] Pato Avelar, DPM [address] [address] [facility] Start: 09-05-2024 End: 09-05-2024 Patient encounter procedure 09/05/2024 7:30 AM EDT Procedure Visit [facility] Pato Avelar, DPM [address] [address] [facility] Start: 08-30-2024 End: 08-30-2024 Patient encounter procedure 08/30/2024 2:50 PM EDT Office Visit [facility] [address] [id number] Pato Avelar DPM [address] [address] 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); Type 2 diabetes mellitus without complication, unspecified whether chcf insulin use ([facility]) [facility] Comment on above: Accessory navicular bone of right foot ( Primary Dx); Type 2 diabetes mellitus without complication, unspecified whether buttermaker continuous churn insulin use ([facility]) Start: 08-02-2024 End: 08-02-2024 Patient encounter procedure [facility] Comment on above: Accessory navicular bone of right foot ( Primary Dx); Posterior tibial tendonitis of right leg; Type 2 diabetes mellitus without complication, unspecified whether chcf insulin use (CMS/FORMERLY [facility]) Start: 07-29-2024 Covid-19 Vaccine ( season) Covid-19 Vaccine ( season) [facility] Start: 07-29-2024 Influenza vaccination Influenza Vaccine (#1) [facility] Start: 07-24-2024 End: 07-24-2024 Patient encounter procedure NOMShashank MONTES Comment on above: Arrived Start: 07-19-2024 End: 07-19-2024 Patient encounter procedure 07/19/2024 4:00 PM EDT Office Visit [facility] [address] [place] [id number] Pato Avelar DPM [address] [address] Accessory navicular bone of left foot (Primary Dx); Type 2 diabetes mellitus without complication, unspecified whether chcf insulin use ([facility]) [facility] Comment on above: Accessory navicular bone of left foot (P rimary Dx); Type 2 diabetes mellitus without complication, unspecified whether buttermaker continuous churn insulin use ([facility]) Start: 05-16-2024 [facility] Start: 05-16-2024 [facility] Start: 2018 Screening for malignant neoplasm of cervix [facility] Start: 2009 Screening for malignant neoplasm of cervix [facility] Start: 2007 Pneumococcal vaccination Pneumococcal Vaccine (1 of 2 - PCV) [facility] Start: 2007 Urine screening for protein Diabetes: Urine Protein Screening [facility] Start: 2006 Annual PCP Team Chronic Disease Visit Annual PCP Team Chronic Disease Visit [facility] Start: 2006 Anxiety Screening Anxiety Screening [facility] Start: 2006 Depression Screening Depression Screening [facility] Start: 2006 Hepatitis B surface antibody level LDL Cholesterol [facility] Start: 2006 Hepatitis C screening Hepatitis C Screening [facility] Start: 2006 HIV screening HIV Screening [facility] Start: 1999 Urine microalbumin profile DTaP,Tdap,Td Vaccine (6 - Tdap) [facility] Start: 1998 Diabetic foot examination Diabetic Foot Exam [facility] Start: 1998 Glaucoma screening [facility] Start: 1998 Hepatitis B screening Urine Albumin:Creatinine Ratio [facility] Start: 1993 Hemoglobin A1c measurement HbA1C [facility] Start: 1988 Hemoglobin A1c measurement Diabetes: Hemoglobin A1C [facility] Anion gap measurement [facility] Application short le g cast walking/ambulatory CAST DAVID LEG, SHORT(WALKING) Procedures Routine Sinus tarsitis, right Ordered: 04/25/2025 [facility] Work Phone: Comment on above: Ordered: 04/25/2025 Basophils [#/volume] in Blood by Automated count [facility] Basophils/100 leukoc ytes in Blood by Automated count [facility] Calculated LDL kesha sterol level [facility] Cholesterol.total/Ch oleste rol in HDL [Mass Ratio] in Serum or Plasma [facility] Eosinophils/100 leuk ocytes in Blood by Automated count [facility] Erythrocyte distribu tion width [Ratio] by Automated count [facility] Erythrocytes [#/volu me] in Blood [facility] Glucose [Mass/volume ] in Serum or Plasma [facility] Glucose measurement estimated from glycated hemoglobin [facility] Hematocrit [Volume Fraction] of Blood [facility] Hemoglobin [Mass/vol ume] in Blood [facility] Hemoglobin A1c/Hemoglobin.total in Blood [facility] Leukocytes [#/volume ] corrected for nucleated erythrocytes in Blood by Automated coun [facility] Leukocytes [#/volume ] in Blood [facility] Lymphocytes [#/volum e] in Blood by Automated count [facility] Lymphocytes/100 leuk ocytes in Blood by Automated count [facility] MCH [Entitic mass] b y Automated count [facility] MCHC [Mass/volume] b y Automated count [facility] MCV [Entitic volume] by Automated count [facility] Monocytes [#/volume] in Blood by Automated count [facility] Monocytes/100 leukoc ytes in Blood by Automated count [facility] End: 06-15-2026 MR Ankle - right WO contrast MRI ANKLE WO IVCON RIGHT Radiology Routine Chronic pain of right ankle 1 Occurrences starting 05/16/2025 until 06/15/2026 [facility] Work Phone: Comment on above: 1 Occurrences starting 05/16/2025 until 06/15/2026 MR Foot - right WO contrast MR foot right wo IV contrast Imaging Routine Stress fracture of right foot, initial encounter Ordered: 10/04/[address] [facility] Work Phone: Comment on above: Ordered: 10/04/2024 Neutrophils [#/volum e] in Blood by Automated count [facility] Neutrophils/100 leuk ocytes in Blood by Automated count [facility] Nucleated erythrocyt es [Presence] in Blood by Automated count [facility] Patient Education Know your Meds [facility] Work Phone: Patient referral [facility] Work Phone: Platelet mean volume [Entitic volume] in Blood by Automated count [facility] Platelets [#/volume] in Blood [facility] VLDL cholesterol measurement [facility] XR Foot - right 3 Views XR foot 3+ views right Imaging Routine Accessory navicular bone of right foot 09/13/2024 3:04 PM EDT [facility] Work Phone: XR Foot - right 3 Views XR foot 3+ views right Imaging Routine Accessory navicular bone of right foot 08/02/2024 3:28 PM EDT [facility] Work Phone: End: 02-02-2026 XR Foot - right AP and Lateral and oblique XR FOOT GENERAL 3V AP/LAT/OBL RIGHT Radiology Routine S/P foot surgery, right 1 Occurrences starting 01/03/2025 until 02/02/2026 [facility] Work Phone: Comment on above: 1 Occurrences starting 01/03/2025 until 02/02/2026 End: 02-10-2026 XR Foot - right AP and Lateral and oblique XR FOOT GENERAL 3V AP/LAT/OBL RIGHT Radiology Routine S/P foot surgery, right 1 Occurrences starting 01/16/2025 until 02/10/2026 [facility] Work Phone: Comment on above: 1 Occurrences starting 01/16/2025 until 02/10/2026 End: 04-07-2026 XR Foot - right AP and Lateral and oblique XR FOOT GENERAL 3V AP/LAT/OBL RIGHT Radiology Routine S/P foot surgery, right 1 Occurrences starting 03/14/2025 until 04/07/2026 [facility] Work Phone: Comment on above: 1 Occurrences starting 03/14/2025 until 04/07/2026 Immunizations Immunization Date Immunization Notes Care Provider Tony teague 07-19-2002 hepatitis B vaccine, pediatric or pediatric/adolescent dosage Jaime Camargo DO Work Phone: [facility] 07-19-2002 measles, mumps and rubella virus vaccine Jaime Camargo DO Work Phone: [facility] 04-16-1993 diphtheria, tetanus toxoids and pertussis vaccine Jaime Camargo DO Work Phone: [facility] 04-16-1993 trivalent poliovirus vaccine, live, oral Jaime Camargo DO Work Phone: [facility] 05-18-1990 haemophilus influenz ae type b vaccine, conjugate unspecified formulation Jaime Camargo DO Work Phone: [facility] 10-13-1989 diphtheria, tetanus toxoids and pertussis vaccine Jaime Camargo DO Work Phone: [facility] 10-13-1989 measles, mumps and rubella virus vaccine Jaime Camargo DO Work Phone: [facility] 10-13-1989 trivalent poliovirus vaccine, live, oral Jaime Camargo DO Work Phone: [facility] 05-11-1989 diphtheria, tetanus toxoids and pertussis vaccine Jaime Camargo DO Work Phone: [facility] 03-17-1989 diphtheria, tetanus toxoids and pertussis vaccine Jaime Camargo DO Work Phone: [facility] 03-17-1989 trivalent poliovirus vaccine, live, oral Jaime Camargo DO Work Phone: [facility] 1988 diphtheria, tetanus toxoids and pertussis vaccine Jaime Camargo DO Work Phone: [facility] 1988 trivalent poliovirus vaccine, live, oral Jaime Camargo DO Work Phone: [facility] Payers Date Payer Category Payer Self-pay [id number] 2024 Unknown [id number] 2020 Blue Cross Blue Shield [id number] [id number] 15 2020 Unknown [id number] 1988 Unknown [id number] 2.16.84 0.1.104398.3.579.2.593 1988 Unknown [id number] 2.16.84 0.1.237111.3.579.2.593 1988 Unknown [id number] 2.16.84 0.1.150556.3.579.2.593 1988 Unknown [id number] 2.16.84 0.1.879963.3.579.2.593 1988 Unknown [id number] 2.16.84 0.1.273013.3.579.2.593 1988 Unknown [id number] 2.16.84 0.1.037492.3.579.2.593 1988 Unknown [id number] 2.16.84 0.1.931460.3.579.2.593 1988 Unknown [id number] 2.16.84 0.1.087858.3.579.2.593 1988 Unknown [id number] 2.16.8 40.1.035786.3.579.2.727 1988 Unknown [id number] 2.16.84 0.1.778863.3.579.2.1259 1988 Unknown [id number] 2.16.84 0.1.756847.3.579.2.1259 1988 Unknown [id number] 2.16.84 0.1.199505.3.579.2.1259 1988 Unknown [id number] 2.16.84 0.1.904044.3.579.2.1259 1988 Unknown [id number] 2.16.84 0.1.099462.3.579.2.1258 1988 Unknown [id number] 2.16.84 0.1.906571.3.579.2.1258 1988 Unknown [id number] 2.16.8 40.1.164958.3.579.2.727 1988 Unknown [id number] 2.16.84 0.1.358707.3.579.2.1258 1988 Unknown [id number] 2.16.84 0.1.334675.3.579.2.1258 1988 Unknown [id number] 2.16.84 0.1.853649.3.579.2.1258 1988 Unknown [id number] 2.16.84 0.1.836053.3.579.2.1258 1988 Unknown [id number] 2.16.84 0.1.342267.3.579.2.1258 1988 Unknown [id number] 2.16.84 0.1.676903.3.579.2.1258 1988 Unknown [id number] 2.16.84 0.1.035605.3.579.2.1258 1988 Unknown [id number] 2.16.84 0.1.990899.3.579.2.1258 1988 Unknown [id number] 2.16.84 0.1.929107.3.579.2.1258 1988 Unknown [id number] 2.16.84 0.1.738287.3.579.2.1258 1988 Unknown [id number] 2.16.84 0.1.153186.3.579.2.1258 1988 Unknown [id number] 2.16.84 0.1.838147.3.579.2.1259 1959 Blue Cross Blue Shield [id number] 2.16.840.1.436481.19 Unknown [id number] 2.16.8 40.1.673648.3.579.2.531 Social History Date Type Detail Facility Unknown if ever smoked [facility] Other Start: 08-02-2024 End: 12-12-2024 Sex Assigned At [facility] Start: 10-25-2018 End: 2025 Tobacco smoking status NHIS Never smoked tobacco (finding) [facility] Start: 1990 Sex Assigned At Female [facility] Tobacco smoking status No Smoking Status Entered [facility] Start: 03-29-2024 End: 12-28-2024 Tobacco use and exposure Smokeless tobacco non-user [facility] Start: 08-02-2024 End: 12-31-2024 Alcoholic beverage intake Lifetime non-drinker (finding) [facility] Start: 08-02-2024 End: 12-12-2024 History of Social function [facility] Start: 1990 Sex assigned at Not on file [facility] Tobacco smoking status OKIS Tobacco smoking consumption unknown [facility] Adult Depression Screening Assessment 2 [facility] Start: 02-05-2025 Sex Female (finding) [facility] NEGATED: Highlighted rowStart: NINF History of tobacco use Passive smoker [facility] Medical Equipment Procedure Code Equipment Code Equipment Origin al Text Equipment Identifier Dates Wound debridement Tendon/ligamen t bone anchor, non-bioabsorbable ([id number] [facility] Start: 05-16-2024 Leiter Suturetak Fiberwire 1 .5 [place] 2 Joselin Biocomposite 26.2mm Suture - [id number] Start: 12-31-2024 Blood Sugar Diagnostic (Onetouch Ultra Test) strip Start: 02-05-2025 Blood Sugar Diagnostic (Onetouch Ultra Test) strip Start: 02-05-2025 Blood Sugar Diagnostic (Onetouch Ultra Test) strip Start: 02-05-2025 Blood Sugar Diagnostic (Onetouch Ultra Test) strip Start: 02-05-2025 Goals Date Patient Goal Desired Activity /State Functional Status Date Assessment Result Facility 04-25-2024 Functional Status No [facility] Clinical Notes 03-22-2022 to 06-15-2025 Note Date & Type Note Facility 06-15-2025 Evaluation note Diagnosis Onset Date Resolution Chest pain acute June 15 1:59am Diabetes mellitus acute June 152024 1:59am [facility] Work Phone: [phone]) 197-749907-19-2025 Evaluation note* Diagnosis Onset Date Resolution Status Admit Date Diabetes mellitus acute June 152024 1:59am Chest pain resolved June 15 1:59am [facility] Work Phone: 1(899) 485-558307-15-2025 NoteHNO ID: [id number] Author: SEAN MATA DPM Service: ? Author Type: Physician Type: Progress Notes Filed: 06/11/2025 10:13 Note Text: PRIMARY SERVICE: [facility] 9:48 AM through 10:18 AM [...] tablet by mouth once daily. DEXCOM G7 REEL HOOKER 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 DEXCOM G7 SENSOR eduin [...] the deltoid and spring ligaments as described. Head Of Data: HERNÁN Transcribe Date/Time: Jun 06 2025 11:37A Dictated by : RADHA TYSON MD This examination was interpreted and the report reviewed and electronically signed by: KATIANA FLORES MD on Jun 06 2025 2:13PM EST Results-Findings * * *Final Report* * * DATE OF EXAM: Jun 06 2025 8:43AM [facility] 0164 - MRI ANKLE WO IVCON [...] from PTT dysfunction. Syndesmosis: Anterior-inferior tibiofibular ligament: I (more content not included)... [facility]07-15-2025 History of Present illness Narrative* Sean Mata DPM - 06/11/2025 10:08 AM EDT Images from the original note were not included. PRIMARY SERVICE: [facility] 9:48 AM through 10:18 AM [...] tablet by mouth once daily. DEXCOM G7 REEL HOOKER 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 DEXCOM G7 SENSOR eduin [...] the deltoid and spring ligaments as described. Head Of Data: PSCB Transcribe Date/Time: Jun 06 2025 11:37A Dictated by : RADHA TYSON MD This examination was interpreted and the report reviewed and electronically signed by: KATIANA FLORES MD on Jun 06 2025 2:13PM EST Results-Findings * * *Final Report* * * DATE OF EXAM: Jun 06 2025 8:43AM [facility] 0164 - MRI ANKLE WO IVCON [...] History MRI ANKLE WO IVCON RIGHT (Order #[id number]) on 06/06/2025 - Order Result History Report [...] of SERVICE: 10:08 AM documented in this encounterBl[facility]07-[facility]-20[facility] History of Present illness Narrative* Mary Alvarez RT(R) - 06/06/2025 8:00 AM EDT Radiology Service Progress Note PATIENT NAME: Noel [...] PATIENT PRESENTS WITH AN IMPLANTABLE OR ATTACHED AWAKE OVERNIGHT [facility]ITOR[facility]: MR; Exam(s) Completed: Lower MSK: Ankle/Hind Foot, right . Aromatherapy Administered: No PERIPHERAL IV DATA: Not applicable SIGNED BY: MARIBELL Lomax) June 06, 2025 8:17 AM documented in this encounterBlanchard Valley [facility] System07-10-2025 NoteHNO ID: [id number] Author: MARY ALVAREZ RT(R) Service: ? Author Type: Technologist Type: [...] PATIENT PRESENTS WITH AN IMPLANTABLE OR ATTACHED AWAKE OVERNIGHT MONITOR: Yes [facility] RADIOLOGY DEPARTMENT: MR; Exam(s) Completed: Lower MSK: Ankle/Hind Foot, right . Aromatherapy Administered: No PERIPHERAL IV DATA: Not applicable SIGNED BY: RT Dami(R) June 06, 2025 8:[address] [facility]06-20-2025 Telephone encounter Note* Telephone Encounter - Natalia Barrios CT - 05/17/2025 12:00 PM EDT Patients boot in no longer inflating or button is broken. Her mother will be coming in this way next week. She will bring the boot to change it out. Patient lives in [place]. [facility]06-20-2025 Miscellaneous Notes* Telephone Encounter - Natalia Barrios CT - 05/17/2025 12:00 PM EDT Patients boot in no longer inflating or button is broken. Her mother will be coming in this way next week. She will bring the boot to change it out. Patient [place]. documented in this encounterBlanchard Valley Health System06-19-2025 NoteHNO ID: [id number] Author: BEVERLY DOBSON Cast Tech Service: ? Author Type: Felt Pad Cutter Type: Progress Notes Filed: 05/16/2025 15:24 Note Text: Patient in today for scheduled appointment. Cast removed. Right leg cleansed with Wound wash, sea-clens and debrisoft. Examined by Dr. Mata. Patient to go int a boot she has at home. Beverly Dobson [facility]06-19-2025 History of Present illness Narrative* Beverly Dobson Cast Tech - 05/16/2025 3:23 PM EDT Patient in today for scheduled appointment. Cast removed. Right leg cleansed with Wound wash, sea-clens and debrisoft. Examined by Dr. Mata. Patient to go int a boot she has at home. Beverly Dobson, CT documented in this encounterBlanchard Valley Health System06-19-2025 NoteHNO ID: [id number] Author: SEAN MATA DPM Service: ? Author Type: Physician Type: Progress Notes Filed: 05/16/2025 14:44 Note Text: Medical intake sheet from May 16, 2025 , was updated by patient, reviewed, and was made part of the patient's chart. Sean Mata DPM PRIMARY SERVICE: [facility] SUBJECTIVE: Patient is seen today [...] tablet by mouth once daily. DEXCOM G7 REEL HOOKER 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 DEXCOM G7 SENSOR eduin [...] findings and further discuss treatment options SIGNATURE: [facility] History of Present illness Narrative* Sean Mata DPM - 05/16/2025 2:41 PM EDT Medical intake sheet from May 16, 2025 , was updated by patient, reviewed, and was made part of the patient's chart. Sean Mata DPM PRIMARY SERVICE: [facility] SUBJECTIVE: Patient is seen today [...] tablet by mouth once daily. DEXCOM G7 REEL HOOKER 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 DEXCOM G7 SENSOR eduin [...] discuss treatment options SIGNATURE: Sean Mata DPM documented in this encounterBlanchard Valley Health System06-09-2025 NoteHNO ID: [id number] Author: BEVERLY DOBSON Cast Tech Service: ? Author Type: Felt Pad Cutter Type: Progress Notes Filed: 05/06/2025 16:02 Note Text: Ms. Paul has been informed that the supervising physician today is Dr. Meek. I am carrying out the treatment plan of Dr. Mata. Patient came in today c/o of loose cast heel rubbing. Cast was removed and skin inspected. Skin appeared normal. Cast was reapplied. Patient instructed follow-up with doctor during next scheduled appointment/prn. Beverly Dobson [facility]06-09-2025 History of Present illness Narrative* Beverly Dobson Cast Tech - 05/06/2025 4:02 PM EDT Ms. Paul has been informed that the supervising physician today is Dr. Meek. I am carrying out thetreatment plan of Dr. Mata. Patient came in today c/o of loose cast heel rubbing. Cast was removed and skin inspected. Skin appeared normal. Cast was reapplied. Patient instructed follow- up with doctor during next scheduled appointment/prn. Beverly Dobson, CT documented in this encounterBlanchard Valley Health System06-06-2025 Telephone encounter Note * Telephone Encounter - Staci Powers - 05/03/2025 2:59 PM EDT Patient called the office to schedule a cast change as suggested by Lashon. No order placed, unfortunately due to the time restraints we had to schedule for Tuesday. [facility]06-06-2025 Miscellaneous Notes* Telephone Encounter - Staci Powers - 05/03/2025 2:59 PM EDT Patient called the office to schedule a cast change as suggested by Lashon. No order placed, unfortunately due to the time restraints we had to schedule for Tuesday. documented in this encounterBlanchard Valley Health System05-29-2025 NoteHNO ID: [id number] Author: BEVERLY DOBSON Cast Tech Service: ? Author Type: Felt Pad Cutter Type: Progress Notes Filed: 04/25/2025 15:14 Note Text: Applied A Short Leg Weightbearing Cast to the right leg. Instructions on cast care given. A medium Cast Shoe was dispensed. Will f/u as scheduled/prn. [facility]05-29-[facility] History of Present illness Narrative* Beverly Dobson Cast Tech - 04/25/2025 3:13 PM EDT Applied A Short Leg Weightbearing Cast to the right leg. Instructions on cast care given. A medium Cast Shoe was dispensed. Will f/u as scheduled/prn. HAYES Johnson documented in this encounterBlanchard Valley Health System05-29-2025 NoteHNO ID: [id number] Author: SEAN MATA DPM Service: ? Author Type: Physician Type: Progress Notes Filed: 04/25/2025 14:38 Note Text: PRIMARY SERVICE: [facility] SUBJECTIVE: Patient is seen today [...] by mouth once daily. - DEXCOM G7 REEL HOOKER 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 - DEXCOM G7 SENSOR [...] these instructions. Informed Consent Consent Obtained: Verbal [place] Protocol A moment to CARE was completed. [...] of SERVICE: 04/25/2025 TIME of SERVICE: 2:09 [facility]05-29-2025 History of Present illness Narrative* Sean Mata, DPM - 04/25/2025 2:09 PM EDT Associated Order(s): Additional Injections: R subtalar joint Post-Procedure Diagnose(s): Sinus tarsitis, right Images from the original note were not included. PRIMARY SERVICE: [facility] SUBJECTIVE: Patient is seen today for follow-up status post a revisional modified Kidner procedure of her right foot on December 31, 2024 with continued pain of her rear foot and ankle. Medical: PAST MEDICAL HISTORY Diagnosis Date Diabetes [...] tablet by mouth once daily. DEXCOM G7 REEL HOOKER 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 DEXCOM G7 SENSOR eduin [...] these instructions. Informed Consent Consent Obtained: Verbal [place] Protocol A moment to CARE was completed. [...] SERVICE: 04/25/2025 TIME of SERVICE: 2:09 PM documented in this encounterBlanchard Valley Health System05-20-2025 NoteHNO ID: [id number] Author: SEAN MATA DPM Service: ? Author Type: Physician Type: Progress Notes Filed: 04/16/2025 14:48 Note Text: PRIMARY SERVICE: [facility] Virtual visit with Zoom: 2:15 to [...] tablet by mouth once daily. DEXCOM G7 REEL HOOKER 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 DEXCOM G7 SENSOR eduin [...] week for evaluation. Explained I really cannot activity therapy specialist what is going on without examining her clinically to determine the best plan of care. Continue icing and oral ibuprofen in the meantime along with the return to her Aircast cam walker boot. SIGNATURE: Sean Mata DPM DATE of SERVICE: 04/16/2025 TIME of SERVICE: 2:42 [facility]04-24-2025 History of Present illness Narrative* Pato Johnson Rodo, SHITAL - 03/21/2025 2:20 PM EDT Patient: Noel Paul : 1990 PCP: Erich Garcia MD SUBJECTIVE This is a 34 y.o. female that presents today s/p right revisional modified Kidner right foot by Dr Mata at [facility]. Pt denies n/f/v/c and has negative pain to post op site. Patient has pain unrelated to prior procedure pain to the outer aspect of the right foot for the past 6 weeks and states it up to 3 out 10 has tried ice and walking boot with Recent steroid pack for right EDL tendinitis and pain along 4th metatarsal right foot. Patient is currently in physical therapy Allergies: Allergies Allergen Reactions Sulfa Antibiotics Rash and Hives Past Medical History: Past Medical History: Diagnosis Date Diabetes ([facility]) Ear problems GERD (gastroesophageal reflux disease) 2011 [...] at the same time, Disp: , Rfl: methylPREDNISolone (Medrol Dospak) 4 MG tablets, Follow schedule on MEDROL PACK package instructions to be used as directed, Disp: 21 tablet, Rfl: 0 omeprazole (PriLOSEC) [address] capsule, TAKE [...] degrees of dorsiflexion at right ankle joint. negative pain on palpation to the right dorsal aspect of the navicular and 1st cuneiform region positive pain on palpation to right EDL tendon complex along the 4th metatarsal and with extension of digits ASSESSMENT s/p modified Kidner right foot with revision 1. Capsulitis of metatarsophalangeal (MTP) joint of right foot 2. Type 2 diabetes mellitus without complication, unspecified whether buttermaker continuous churn insulin use PLAN Continue with physical therapy Patient to return to orthotics Patient to continue with oral anti - inflammatories as needed for pain and recommended OTC medications such as tylenol or Ibuprofen Pato Avelar DPM documented in this encounterTen[facility] [id number] NoteHNO ID: [id number] Author: NATALIA BARRIOS CT Service: ? Author Type: Clinical Felt Pad Cutter Type: Progress Notes Filed: 03/14/2025 16:37 Note Text: Dispensed size Medium ASO to right foot.[facility]04-17-2025 History of Present illness Narrative* Natalia Barrios CT - 03/14/2025 4:37 PM EDT Dispensed size Medium ASO to right foot. * Sean Mata DPM - 03/14/2025 3:41 PM EDT PRIMARY SERVICE: [facility] Podiatry SUBJECTIVE: Patient is seen today [...] 8 hours as needed for up to 10days. DEXCOM G7 REEL HOOKER 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 DEXCOM G7 SENSOR eduin [...] foot is nice and rectus with minimal residualdeformity. She has some discomfort along the lateral column of the right foot. ASSESSMENT: Satisfactory postop progress right foot status post 10 weeks Treatment today: Scheduled postop visit right foot Discussed results of clinical examination with the patient in detail May discontinue the Aircast CAM Walker boot and continue physical therapy. Okay for discharge. Fitted for ASO ankle brace today SIGNATURE: Sean Mata DPM documented in this encounterBlanchard Valley Health System04-17-2025 NoteHNO ID: [id number] Author: SEAN MATA DPM Service: ? Author Type: Physician Type: Progress Notes Filed: 03/14/2025 16:01 Note Text: PRIMARY SERVICE: [facility] Podiat[facility] SUBJECTIVE: Patient is seen today [...] for up to 10 days. DEXCOM G7 REEL HOOKER 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 DEXCOM G7 SENSOR eduin DEXCOM G6 TRANSMITTER deuin as directed. cholecalciferol (VITAMIN D3) 5,000 unit [...] ASO ankle brace today SIGNATURE: Sean Mata [facility]04-17-2025 Note HNO ID: [id number] Author: JOYA DUBOIS RT(Misha) Service: ? Author Type: Technologist Type: [...] PATIENT PRESENTS WITH AN IMPLANTABLE OR ATTACHED AWAKE OVERNIGHT MONITOR: No RADIOLOGY DEPARTMENT: General X-ray: Exam(s) Completed: Lower Extremity X-Ray(s): Foot, Right and Wt. Bearing PERIPHERAL IV DATA: Not applicable SIGNED BY: RT Ezequiel(R) March 14, 2025 3:32 [facility]04-17-2025 History of Present illness Narrative* Joya Dubois RT(R) - 03/14/2025 3:32 PM EDT Radiology Service Progress Note PATIENT NAME: Noel [...] PATIENT PRESENTS WITH AN IMPLANTABLE OR ATTACHED AWAKE OVERNIGHT MONITOR: No RADIOLOGY DEPARTMENT: General X-ray: Exam(s) Completed: Lower Extremity X- Ray(s): Foot, Right and Wt. Bearing PERIPHERAL IV DATA: Not applicable SIGNED BY: RT Ezequiel(R) March 14, 2025 3:32 PM documented in this encounterBlanchard Valley Health System04-10-2025 History of Present illness Narrative* Pato Avelar DPM - 03/07/2025 9:00 AM EDT Patient: Noel Paul : 1990 PCP: Erich Garcia MD SUBJECTIVE This is a 34 y.o. female that presents today s/p right revisional modified Kidner right foot by Dr Mata at [facility]. Pt denies n/f/v/c and has negative pain to post op site. Patient has pain unrelated to prior procedure pain to the outer aspect of the right foot for the past 3 weeks and states it up to 7 out 10 has tried ice and walking boot with minimal improvement Allergies: Allergies Allergen Reactions Sulfa Antibiotics Rash and Hives Past Medical History: Past Medical History: Diagnosis Date Diabetes ([facility] Ear problems GERD (gastroesophageal reflux disease) 2012 [...] degrees of dorsiflexion at right ankle joint. negative pain on palpation to the right dorsal aspect of the navicular and 1st cuneiform region Positive pain on palpation to right EDL tendon complex along the 4th metatarsal and with extension of digits ASSESSMENT s/p modified Kidner right foot with revision 1. Capsulitis of metatarsophalangeal (MTP) joint of right foot PLAN Continue with walking boot and ice to foot Prescription today for Medrol pack Pato Avelar DPM documented in this encounterTen[address]. LouisBlobecwrfg51-04-2085 Telephone encounter Note* Telephone Encounter - Chris Bhatt OCCA - 02/20/2025 4:21 PM EDT Called and informed staff she may being partial weight bearing. [facility]03-26-2025 Miscellaneous Notes* Telephone Encounter - Chris Bhatt OCCA - 02/20/2025 4:21 PM EDT Called and informed staff she may being partial weight bearing. * Telephone Encounter - Marva Bhardwaj - 02/20/2025 4:06 PM EDT Bonilla from [facility] PT Dept is calling Sean Mata DPM today to request weightbearing guide lines for patient PT CB [phone] ext [phone] FAX [phone] Patient has been identified by name and birthdate. Duration of symptoms: N/A Person calling: caregiver: Call patient at: [phone] (home) [phone] (cell) Was an appointment scheduled: No Closing statement: Results or non-symptom based questions: Thank you for calling [facility], your call will be returned within the next business day. Marva Almeida documented in this encounterBlanchard Valley Health System03-26-2025 Telephone encounter Note * Telephone Encounter - Marva Bhardwaj - 02/20/2025 4:06 PM EDT Bonilla from [facility] PT Dept is calling Sean Mata DPM today to request weightbearing guide lines for patient PT CB [phone] ext [phone] FAX [phone] Patient has been identified by name and birthdate. Duration of symptoms: N/A Person calling: caregiver: Call patient at: [phone] (home) [phone] (cell) Was an appointment scheduled: No Closing statement: Results or non-symptom based questions: Thank you for calling [facility], your call will be returned within the next business day. Marva Almeida [facility]03-19-2025 NoteHNO ID: [id number] Author: BEVERLY DOBSON Cast Tech Service: ? Author Type: Felt Pad Cutter Type: Progress Notes Filed: 02/13/2025 10:15 Note Text: Patient in today for scheduled appointment. Cast removed. Right leg cleansed with Cavilon. Examined by Dr. Mata. Fitted with a medium Short Pneumatic Walker for the right leg. Instructions on application, adjustments and care given. Will f/u as scheduled/prn. Beverly Dobson [facility]03-19-2025 History of Present illness Narrative* Beverly Dobson Cast Tech - 02/13/2025 10:14 AM EDT Patient in today for scheduled appointment. Cast removed. Right leg cleansed with Cavilon. Examinedby Dr. Mata. Fitted with a medium Short Pneumatic Walker for the right leg. Instructions on application, adjustments and care given. Will f/u as scheduled/prn. HAYES Johnson documented in this encounterBlanchard Valley Health System03-19-2025 NoteHNO ID: [id number] Author: SEAN MATA DPM Service: ? Author Type: Physician Type: Progress Notes Filed: 02/13/2025 10:05 Note Text: PRIMARY SERVICE: [facility] Podiatry SUBJECTIVE: Patient is seen today [...] up to 10 days. - DEXCOM G7 REEL HOOKER 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 - DEXCOM G7 SENSOR [...] was made part of the patient's chart. [facility] History of Present illness Narrative* Sean Mata DPM - 02/13/2025 9:44 AM EDT PRIMARY SERVICE: [facility] Podiatry SUBJECTIVE: Patient is seen today [...] 8 hours as needed for up to 10days. DEXCOM G7 REEL HOOKER 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 DEXCOM G7 SENSOR eduin [...] foot is nice and rectus with minimal residualdeformity ASSESSMENT: Satisfactory postop progress right foot status [...] chart. Sean Mata DPM documented in this encounterBlanchard Valley Health System03-19-2025 NoteHNO ID: [id number] Author: MAURA SHELL RT(Misha) Service: ? Author Type: Technologist Type: [...] PATIENT PRESENTS WITH AN IMPLANTABLE OR ATTACHED AWAKE OVERNIGHT MONITOR: No RADIOLOGY DEPARTMENT: General X-ray: Exam(s) Completed: Lower Extremity X-Ray(s): Foot, Right PERIPHERAL IV DATA: Not applicable SIGNED BY: RT Rickie(R) February 13, 2025 9:[address] [facility]03-19-2025 History of Present illness Narrative* Maura Shell RT(R) - 02/13/2025 9:23 AM EDT Radiology Service Progress Note PATIENT NAME: Noel [...] Cane, Wheelchair, Crutches, etc.)? Yes, Patient High Riskfor Falls What interventions were put in place to prevent falls during this visit? Instructed Patient to Remain Seated (Not on Exam Table) Until Exam and Increased Observations by Caregivers PATIENT GENDER DATA: Assigned female at . status: : No status:NO. PATIENT RELEVANT IMPLANT DATA REVIEWED: Not Applicable PATIENT PRESENTS WITH AN IMPLANTABLE OR ATTACHED AWAKE OVERNIGHT MONITOR: No RADIOLOGY DEPARTMENT: General X-ray: Exam(s) Completed: Lower Extremity X- Ray(s): Foot, Right PERIPHERAL IV DATA: Not applicable SIGNED BY: RT Rickie(R) February 13, 2025 9:23 AM documented in this encounterBlanchard Valley Health System02-26-2025 Note* Addendum Note - Natalia Barrios CT - 01/23/2025 12:18 PM ESTAddended by: NATALIA BARRIOS on: 01/23/2025 12:18 PM Modules accepted: Orders [facility]02-26-2025 Miscellaneous Notes* Addendum Note - Natalia Barrios CT - 01/23/2025 12:18 PM ESTAddended by: NATALIA BARRIOS on: 01/23/2025 12:18 PM Modules accepted: Orders documented in this encounterBlanchard Valley Health System02-26-2025 NoteHNO ID: [id number] Author: BEVERLY DOBSON Cast Tech Service: ? Author Type: Felt Pad Cutter Type: Progress Notes Filed: 01/23/2025 11:52 Note Text: Patient in today for scheduled appointment. Cast removed. Right leg cleansed with sea-clens. Examined by Dr. Mata. Applied A Short Leg Nonweightbearing Cast to the right leg. Instructions on cast care given. Will f/u as scheduled/prn. Beverly Dobson [facility]02-26-2025 History of Present illness Narrative* Beverly Dobson Cast Tech - 01/23/2025 11:51 AM EST Patient in today for scheduled appointment. Cast removed. Right leg cleansed with sea-clens. Examined by Dr. Mata. Applied A Short Leg Nonweightbearing Cast to the right leg. Instructions on cast care given. Will f/u as scheduled/prn. HAYES Johnson documented in this encounterBlanchard Valley Health System02-26-2025 NoteHNO ID: [id number] Author: SEAN MATA DPM Service: ? Author Type: Physician Type: Progress Notes Filed: 01/23/2025 11:47 Note Text: PRIMARY SERVICE: [facility] Pod[facility] SUBJECTIVE: Patient is seen today [...] for up to 10 days. DEXCOM G7 REEL HOOKER 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 DEXCOM G7 SENSOR eduin [...] boot and refer to physical therapy. SIGNATURE: [facility]02-26-2025 History of Present illness Narrative* Sean Mata DPM - 01/23/2025 10:56 AM EST PRIMARY SERVICE: [facility] Podiat[facility] SUBJECTIVE: Patient is seen today [...] 8 hours as needed for up to 10days. DEXCOM G7 REEL HOOKER 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 DEXCOM G7 SENSOR eduin [...] foot is nice and rectus with minimal residualdeformity ASSESSMENT: Satisfactory postop progress right foot status post 3 weeks appropriate to continue as is TREATMENT TODAY: Second postop visit right foot Discussed results of clinical examination with the patient and family in detail upon removal of theBK fiberglass cast and dressings. Painted incision with Betadine. Reapplied a bulky dry sterile dressing sterile 4 x 4's Kerlix followed by well-padded BK fiberglass nonweightbearing cast dorsiflexed to resistance and inverted. I will see the patient back in approximately 3 weeks for reevaluation with final cast. Continue nonweightb earing until further advised. We will begin progressive partial weightbearing next visit in an Aircast CAM Walker boot and refer to physical therapy. SIGNATURE: Sean Mata DPM documented in this encounterBlanchard Valley Health System02-12-2025 NoteHNO ID: [id number] Author: SHAYLEE CONCEPCION MA Service: ? Author Type: Hydrographical Technical Officer Type: Progress Notes Filed: 01/09/2025 11:22 Note [...] will follow up as scheduled or as needed.[facility]02-12-20[facility] History of Present illness Narrative* Shaylee Concepcion MA - 01/09/2025 11:18 AM EST This patient is here today for splint removal, exam by Dr. Mata and cast application. The patient was placed in a short leg nonweightbearing cast. The surgical site was covered in betadine, 4x4's and kerlix. This was applied to right leg. Patient was instructed in care and usage and verbalizes un derstanding. Patient will follow up as scheduled or as needed. documented in this encounterBlanchard Valley Health System02-12-2025 NoteHNO ID: [id number] Author: SEAN MATA DPM Service: ? Author Type: Physician Type: Progress Notes Filed: 01/09/2025 10:55 Note Text: PRIMARY SERVICE: [facility] Pod[facility] SUBJECTIVE: Patient is seen today [...] for up to 10 days. DEXCOM G7 REEL HOOKER 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 DEXCOM G7 SENSOR eduin [...] of SERVICE: 01/09/2025 TIME of SERVICE: 10:[address] [facility]02-12-2025 History of Present illness Narrative* Sean Mata DPM - 01/09/2025 10:52 AM EST Images from the original note were not included. PRIMARY SERVICE: [facility] Pod[facility] SUBJECTIVE: Patient is seen today [...] 8 hours as needed for up to 10days. DEXCOM G7 REEL HOOKER 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 DEXCOM G7 SENSOR eduin [...] foot is nice and rectus with minimal residualdeformity ASSESSMENT: Satisfactory postop progress right foot status post 9 days appropriate to continue present TREATMENT TODAY: First postop visit right foot Discussed results of clinical examination with the patient and family in detail upon removal of theposterior splint and dressings. Pain incision with Betadine. Reapplied a bulky dry sterile dressing sterile 4 x 4's Kerlix followedby well-padded BK fiberglass nonweightbearing cast dorsiflexed to resistance and inverted. I will see the patient back in approximately 2 weeks for reevaluation with final cast. Continue nonweightbear ing until further advised SIGNATURE: Sean Mata DPM DATE of SERVICE: 01/09/2025 TIME of SERVICE: 10:52 AM documented in this encounterBlanchard Valley Health System02-05-2025 Telephone encounter Note * Telephone Encounter - Sean Mata DPM - 01/02/2025 12:36 PM EST Called patient at [phone] to return call regarding pain management. I spoke with the patient. Advised I sent a prescription over for her electronically for Toradol 10 mg tablets take 2 right away the 1 every 6 hours with food until gone in addition to the Percocet and the Phenergan. Recommend 2 Percocet every 4-6 hours due to her BMI. Sean Mata DPM [facility]02-05-2025 Miscellaneous Notes* Telephone Encounter - Sean Mata DPM - 01/02/2025 12:36 PM EST Called patient at [phone] to return call regarding pain management. I spoke with the patient. Advised I sent a prescription over for her electronically for Toradol 10 mg tablets take 2 right away the 1 every 6 hours with food until gone in addition to the Percocet and the Phenergan. Recommend 2 Percocet every 4-6 hours due to her BMI. Sean Mata DPM documented in this encounterBlanchard Valley Health System02-03-2025 Miscellaneous Notes* Telephone Encounter - Sean Mata DPM - 12/31/2024 8:26 PM EST Called patient at her Lonnie's cell number at [phone] to check on postop progress. Received voicemail. Left message that I called. Called patient back at 8:41 PM to same number. Spoke with who said she was doing well without any significant pain or problems at this time. Advised to call if any questions or problems between now and her first scheduled postop visit on December. Sean Mata DPM * Telephone Encounter - Karissa Raman MA - 12/31/2024 3:25 PM EST Message has been sent directly to Dr Mata's phone. * Telephone Encounter - Marva Bhardwaj - 12/31/2024 2:48 PM EST Noel is calling Sean Mata DPM today [...] calling: self Call patient at: at home [phone] (home) [phone] (cell) Was an appointment scheduled: No Closing statement: Results or non-symptom based questions: Thank you for calling [facility], your call will be returned within the next business day. Marva Almeida documented in this encounterBlanchard Valley Health System02-03-2025 Telephone encounter Note * Telephone Encounter - Sean Mata DPM - 12/31/2024 8:26 PM EST Called patient at her Lonnie's cell number at [phone] to check on postop progress. Received voicemail. Left message that I called. Called patient back at 8:41 PM to same number. Spoke with who said she was doing well without any significant pain or problems at this time. Advised to call if any questions or problems between now and her first scheduled postop visit on December. Sean Mata DPM [facility] Work Phone: 1(903) 346-199102-03-2025 Telephone encounter Note* Telephone Encounter - Karissa Raman MA - 12/31/2024 3:25 PM EST Message has been sent directly to Dr Mata's phone. [facility]02-03-2025 Telephone encounter Note* Telephone Encounter - Marva Bhardwaj - 12/31/2024 2:48 PM EST Noel is calling Sean Mata DPM today [...] calling: self Call patient at: at home [phone] (home) [phone] (cell) Was an appointment scheduled: No Closing statement: Results or non-symptom based questions: Thank you for calling [facility], your call will be returned within the next business day. Marva Almeida [facility]02-03-2025 NoteHNO ID: [id number] Author: ESTELLA GIBBONS AA Service: Anesthesiology Author Type: Public Address System Installer Type: Anesthesia Procedure Notes Filed: 12/31/2024 09:57 [...] December 31, 2024 TIME: 9:57 AM CSN: [id number] [facility]acon[facility]02-03-2025 NoteHNO ID: [id number] Author: ESTELLA GIBBONS AA Service: Anesthesiology Author Type: Public Address System Installer Type: Anesthesia Procedure Notes Filed: 12/31/2024 08:20 [...] December 31, 2024 TIME: 8:18 AM CSN: [id number] Deaconess Hospital01-31-2025 History and physical note* Ary Rocha, DAKSHA.FITNESS SERVICES MANAGER - 12/28/2024 10:10 AM EST Images from the original note were not included. [facility] HISTORY AND PHYSICAL EXAMINATION SERVICE DATE: 12/28/2024 SERVICE TIME: 10:08 AM PRIMARY CARE PHYSICIAN: Monique Emmanuel CNP, FITNESS SERVICES MANAGER REASON FOR VISIT: Noel Paul is [...] STOP-Bang Score: STOP-Bang Score: 0 (Awaiting CPAP) [id number] Score: Age: <65 Sex: female [id number] Score: ARISCAT Score: Age: <=50 Preoperative SpO2: [...] chart review and guidance on proceeding at [facility]. Per Stephanie, patient may proceed as scheduled at [facility] CONSULTS: Anesthesia Consult chart review The Following [...] AT BEDTIME NEEDED Taking Yes DEXCOM G7 REEL HOOKER 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 DEXCOM G7 SENSOR eduin [...] fevers. Neuro: No history of TIA's, stroke, ACUTE DIALYSIS NURSE tumor, impaired sensorium, hemiplegia, paraplegia or quadraplegia. No neurological symptoms or problems. Respiratory: No history of current cough or dyspnea, or pneumonia in the past 6 weeks. No history of respiratory/pulmonary symptoms or problems. Cardiovascular: No history of HTN requiring medication, no history of angina, CHF, AL, cardiac surgery or stents. Denies rest pain, [...] or clotting disorder. Pt is not taking anti- coagulation or platelet medications. No history of hematological [...] 12/28/2024 TIME: 10:21 AM [facility]01-31-20[facility] History and physical note* Ary Rocha APRN.IRENE - 12/28/2024 10:10 AM EST Images from the original note were not included. [facility] HISTORY AND PHYSICAL EXAMINATION SERVICE DATE: 12/28/2024 SERVICE TIME: 10:08 AM PRIMARY CARE PHYSICIAN: Monique Emmanuel CNP, FITNESS SERVICES MANAGER REASON FOR VISIT: Noel Paul is [...] STOP-Bang Score: STOP-Bang Score: 0 (Awaiting CPAP) [id number] Score: Age: <65 Sex: female [id number] Score: ARISCAT Score: Age: <=50 Preoperative SpO2: [...] chart review and guidance on proceeding at [facility]. Per Stephanie, patient may proceed as scheduled at [facility] CONSULTS: Anesthesia Consult chart review The Following [...] AT BEDTIME NEEDED Taking Yes DEXCOM G7 REEL HOOKER 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 DEXCOM G7 SENSOR eduin [...] fevers. Neuro: No history of TIA's, stroke, ACUTE DIALYSIS NURSE tumor, impaired sensorium, hemiplegia, paraplegia or quadraplegia. No neurological symptoms or problems. Respiratory: No history of current cough or dyspnea, or pneumonia in the past 6 weeks. No history of respiratory/pulmonary symptoms or problems. Cardiovascular: No history of HTN requiring medication, no history of angina, CHF, AL, cardiac surgery or stents. Denies rest pain, [...] or clotting disorder. Pt is not taking anti- coagulation or platelet medications. No history of hematological [...] 12/28/2024 TIME: 10:21 AM documented in this encounterBlanchard Valley Health System01-29-2025 Instructions* Patient Instructions* Ary Rocha APRN.FITNESS SERVICES MANAGER - 12/26/2024 7:49 AM EST Images from the original note were not included. [facility] PATIENT PREOPERATIVE INSTRUCTIONS Sean Mata,* has scheduled you for your procedure at this surgery center: [facility]: [phone] --[address] [facility] [address]. Please read below carefully for your personalized [...] office. If you are currently using a kfbs-fzv-nurj injectable or oral medication for diabetes or [...] Procedures: - YOU MUST HAVE A RESPONSIBLE HIGH DENSITY TALC COATER OPERATOR TAKE YOU HOME. A LIME KILN AND RECAUSTICIZING OPERATOR OR SPECIAL DISTRIBUTION CLERK CANNOT BE MADE A RESPONSIBLE HIGH DENSITY TALC COATER OPERATOR. - We recommend that a responsible person stays with you overnight to take care of you. - You cannot stay in a hotel alone after outpatient surgery. You will not be permitted to have yoursurgery, if you do not have someone to [...] Advance Directive, please fax a copy to [phone] or email to for it to be added to your chart. If you do not have an Advance Directive, you can find the appropriate form and more information at [email or web address]. We recommend that youcomplete the Advance Directive form found on the website and bring it with you the day of your surgery. It can be witnessed and scanned into your chart that day. 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 documented in this encounterBlanchard Valley Health System01-15-2025 NoteHNO ID: [id number] Author: SEAN MATA DPM Service: ? Author Type: Physician Type: Progress Notes Filed: 12/12/2024 10:46 Note Text: [facility] Department of Orthopedics [facility] Orthopedic Surgery Name: Noel Paul Date [...] Current Outpatient Medications Medication Sig DEXCOM G7 REEL HOOKER 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 DEXCOM G7 SENSOR eduin [...] like to proceed. We will complete scheduling. [facility] History of Present illness Narrative* Sean Mata DPM - 12/12/2024 10:39 AM EST [facility] Department of Orthopedics [facility] Orthopedic Surgery Name: Noel Paul Date [...] her left foot. She had her left footdone prior to the with very little discomfort. She had an MRI performed of her left foot on October 18, 2024 which revealed a stress response navicular with an accessory navicular. She is seen todayto discuss the problem and treatment options along with her plan of care. No past medical history on file. Current Outpatient Medications Medication Sig DEXCOM G7 REEL HOOKER 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 DEXCOM G7 SENSOR eudin DEXCOM G6 TRANSMITTER eduin as directed. glipiZIDE [...] CAM Walker boot on the right lower extremity.Upon removal: The patient is alert and oriented [...] right. Ankle joint, subtalar joint, 1st MPJ andlesser MPJ ROM's are full and without pain or crepitus right. She has moderate prominence with painwith palpation over the navicular tuberosity region of [...] scheduling. Sean Mata DPM documented in [facility] encounterBl[facility]-2025 NoteHNO ID: [id number] Author: JAMAL REYNOSO RT(R) Service: ? Author [...] PATIENT PRESENTS WITH AN IMPLANTABLE OR ATTACHED AWAKE OVERNIGHT MONITOR: No RADIOLOGY DEPARTMENT: General X-ray: Exam(s) Completed: Lower Extremity X-Ray(s): Foot, Right PERIPHERAL IV DATA: Not applicable SIGNED BY: RT Manju(R) December 12, 2024 9:[address] [facility]01-15-2025 History of Present illness Narrative* Jamal Reynoso RT(R) - 12/12/2024 9:29 AM EST Radiology Service Progress Note PATIENT NAME: Noel [...] No status:NO. PATIENT RELEVANT IMPLANT DATA REVIEWED: Not Applicable PATIENT PRESENTS WITH AN IMPLANTABLE OR ATTACHED AWAKE OVERNIGHT MONITOR: No RADIOLOGY DEPARTMENT: General X-ray: Exam(s) Completed: Lower Extremity X- Ray(s): Foot, Right PERIPHERAL IV DATA: Not applicable SIGNED BY: RT Manju(R) December 12, 2024 9:29 AM documented in this encounterBlanchard Valley [facility]12-30-2024 NoteOrthopedic Surgery Subjective Pain of the Right Foot [...] today as a referral from her previous global mobility specialist for assistance with continued pain over the [...] from me. Kat Her MD Orthopedic Surgery, Incident Response Coordinator [facility] 11/26/2024[facility]11-27-[facility]24 History of Present illness Narrative* Pato Avelar, SHITAL - 10/24/2024 2:40 PM EST Patient: Noel Paul : 1990 PCP: Erich Garcia MD SUBJECTIVE This is a 34 y.o. female that presents today 49 days s/p right modified Kidner right foot Pt denies n/f/v/c and has positive pain to post op site. Patient was seen in local hospital ER and dispensed a high Cam walker type boot. She states pain upto a 7/10 at times and presents today for follow-up of MRI results at [facility]. Allergies: Allergies Allergen Reactions Sulfa Antibiotics Rash and Hives Past Medical History: Past Medical History: Diagnosis Date Diabetes ([facility]) Ear problems GERD (gastroesophageal reflux disease) 2011 [...] without complication, unspecified whether chcf insulin use ([facility]) 3. Accessory navicular bone of right foot [...] on AP and medial oblique views of thefoot on current x-rays. Patient does have a radiolucent Arthrex anchor as well that is not apparenton plain films and not mentioned on MRI. Due to the large portion navicular bone for possible remaining accessory bone not apparent during surgery or postoperative films suspect possible navicular type fracture or stress fracture. Due to findings patient may need more invasive surgery. Will refer to [facility] [place] [facility]. [place] for referral and consultation at tertiary care center secondary to more advanced type procedure may be necessary. Will refer for consultation and possible further intervention Pato Avelar DPM documented in this encounterTenet St. LouisVyktgdyjec90-21-4694 History of Present illness Narrative* Pato Avelar DPM - 10/04/2024 2:40 PM EST Patient: Noel Paul : 1990 PCP: Erich [...] region has continued pain to the area withweight-bearing or nonweightbearing Allergies: Allergies Allergen Reactions Sulfa Antibiotics Rash and Hives Past Medical History: Past Medical History: Diagnosis Date Diabetes ([facility]) Ear problems GERD (gastroesophageal reflux disease) 2012 [...] right Pato Avelar DPM documented in this encounterTenet St. [id number] History of Present illness Narrative* Pato Avelar DPM - 09/20/2024 2:30 PM EDT Patient: Noel Paul : 1990 [...] History: Past Medical History: Diagnosis Date Diabetes ([facility]) Ear problems GERD (gastroesophageal reflux disease) 2011 [...] and straps and pneumatically inflated for proper customfitting by Pato Avelar DPM and staff. A verbal order was given for dispensing of device. The patient is ambulatory and may benefit functionally from this device. It may be used for the following conditions as noted per medical diagnosis. Pato Avelar DPM documented in this encounterTenet St. [id number] Telephone encounter Note* Telephone Encounter - Pato Avelar DPM - 09/07/2024 8:26 AM EDT Has been called for possible increase in pain medication and will switch from hydrocodone to oxycodone and sent to [facility] and [place] [facility] LouisObcmijyfhm75-44-4879 Miscellaneous Notes* Telephone Encounter - Pato Avelar DPM - 09/07/2024 8:26 AM EDT Has been called for possible increase in pain medication and will switch from hydrocodone to oxycodone and sent to [facility] and [place] documented in this encounterTenet St. LouisBfiykdzrgk92-58-8956 History of Present illness Narrative* Pato Avelar DPM - 08/30/2024 2:50 PM EDT Patient: Noel Paul : 1990 [...] point time and would like surgical intervention isscheduled to have a Kidner procedure with tendon anchor with removal of accessory navicular bone ofthe right foot Patient is scheduled for right modified Kidner procedure with tendon anchor and removal accessory navicular in the near future. Patient procedures unrelated to prior left foot procedure. Patient also presents today with complaints of left heel pain particularly 1st steps in the morningunrelated to prior surgical procedure. She states pain up to a 10/10 at times particularly 1st steps and has tried anti-inflammatories with minimal improvement. She is also type 2 diabetic Allergies: Allergies Allergen Reactions Sulfa Antibiotics Rash and Hives Past Medical History: Past Medical History: Diagnosis Date Diabetes ([facility]) Ear problems GERD (gastroesophageal reflux disease) 2011 [...] cool tibia to toes b/l NEURO: 5.07 Treadwell Deyanira monofilament test positive to digits and [...] fascia with its origin at the medial plantartuberosity of the calcaneus. The area of thickening and inflammation is greater than 4mm (norm = 4 mm). 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 Type 2 diabetes mellitus without complication, unspecified whether buttermaker continuous churn insulin use ([facility]) 3. Heel spur, left 4. Plantar fasciitis [...] condition and operative vs nonoperative care. The surgicalplans, risks, alternatives, benefits, post op complications and buttermaker continuous churn expectations were discussed including but not limited to: infection,bone infection,wound dehiscence hardware failure and irritation,wound dehiscence,delay union/mal union/non union of bone. RSDS,neuroma,duty limitations,DVT/PE, AL,nerve damage, scar, loss of sensation, swelling. Pt [...] proceed. This is the patients 1st injection. Procedureunrelated to prior procedure Pt was fitted for custom made orthotics today. Orthotics were deemed to fit appropriately and patient was informed of proper break in of devices. Patient education on break in of device. ABN signed and in chart if warranted. Pato Avelar DPM, FACFAS H&P up to date and current (date) August 30, 2024 Pato Avelar DPM documented in this encounterTenet St. LouisXxhxdsbdbc70-87-2554 History of Present illness Narrative* Pato Avelar DPM - 08/02/2024 3:20 PM EDT Patient: Noel Paul : [...] History: Past Medical History: Diagnosis Date Diabetes ([facility]) Ear problems GERD (gastroesophageal reflux disease) 2011 [...] negative erythema, negative drainage, and diminished edema withnegative clinical signs of infection. Vascular: Palpable pedal [...] without complication, unspecified whether chcf insulin use ([facility]) PLAN Patient to continue with oral anti [...] for the devices. The patient is ambulatory maybenefit functionally for this device. It may be [...] Patient may continue with conservative treatments including cvnx-xog-hxyjduu anti- inflammatories and other treatments suggested today. Patient may want to be s cheduled for surgical intervention in the near future. Patient had a right modified Kidner procedure to the right foot with removal of accessory navicular with postoperative pain medicine of [place] and will see family Lien for preop clearance. This condition is unrelated to prior condition Pato Avelar DPM documented in this encounterTenet St. LouisMznusgjhpq47-16-9312 Telephone encounter Note* Telephone Encounter - GIOVANI MURRY - 07/31/2024 12:54 PM EDT Pt called back, would like scanned at next appt [facility] [id number] Miscellaneous Notes* Telephone Encounter - GIOVANI MURRY - 07/31/2024 12:54 PM EDT Pt called back, would like scanned at next appt * Telephone Encounter - GIOVANI MURRY - 07/31/2024 12:42 PM EDT Left vm to go over benefits * Telephone Encounter - Marti Murry MA - 07/27/2024 10:44 AM EDT Per call to Elda CHILDRESS @ [phone] with Denise Marroquin - I verified the policy is current and active with an effective date of 11/28/2020. L3020 is covered at 100% as both the ded and oop have been met. There are no frequency limits, no exclusions, and no prior authorizations needed. Ref#: [id number]. * Telephone Encounter - Pato Avelar DPM - 07/19/2024 4:56 PM EDT Please precertify for custom orthotics for the diagnosis of Posterior tibial tendinitis bilaterally documented in this encounterTenet St. LouisUghrdfheoo86-48-0939 Telephone encounter Note* Telephone Encounter - GIOVANI MURRY - 07/31/2024 12:42 PM EDT Left vm to go over benefits [facility] LouisVypehluiqx56-02-0948 Telephone encounter Note* Telephone Encounter - Marti Murry MA - 07/27/2024 10:44 AM EDT Per call to Elda CHILDRESS @ [phone] with Denise Marroquin, - I verified the policy is current and active with an effective date of 11/28/2020. L3020 is covered at 100% as both the ded and oop have been met. There are no frequency limits, no exclusions, and no prior authorizations needed. Ref#: [id number]. [facility] LouisCynymraerc64-75-6102 History of Present illness Narrative* Jaime Camargo DO - 07/24/2024 3:30 PM EDT Subjective Patient ID: Noel Paul is a [...] oral antibiotics with no improvement. Denies any historyof trauma to the region. The rest of [...] limits, ear canals are patent, tympanic membranes areintact. Review of her audiogram reveals normal hearing [...] the next 7-10 days. Patient will use updc-zda-ynjpayl ibuprofen 3 times a day with food to help decrease inflammation. The patient may also benefit from a mouth guard. We will consider referral to Dr. Adali SALAZAR if there is no improvement documented in this encounterTenet St. LouisOhrzhxhaom55-08-6490 Telephone encounter Note* Telephone Encounter - Pato Avelar DPM - 07/19/2024 4:56 PM EDT Please precertify for custom orthotics for the diagnosis of Posterior tibial tendinitis bilaterally [facility] LouisDfkjlrtjjl80-24-5068 History of Present illness Narrative* Pato Avelar DPM - 07/19/2024 4:10 PM EDT Patient: Noel Paul : 1990 PCP: [place] [...] History: Past Medical History: Diagnosis Date Diabetes ([facility]) Medications: Current Outpatient Medications: cholecalciferol (Vitamin D-3) [...] 2 diabetes mellitus without complication, unspecified whether buttermaker continuous churn insulin use ([facility]) 3. Accessory navicular bone of right foot [...] and have x-ray to the other foot forpossible treatments Pato Avelar DPM documented in this encounterTenet St. LouisIvxszsvawc75-76-5058 Evaluation note* Encounter Date Diagnosis Assessment Notes Treatment Notes Treatment Clinical Notes Feb, Finger pain, right (ICD-10 - [...] no improvement in 5 to 7 days. Episona Other Evaluation + Plan note Future Appointments Appointment Date:05/09/2024 07:30:00 AM Scheduled Provider: [facility] assessment information available [facility] Work Phone: Evaluation note* Diagnosis 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 Type 2 diabetes mellitus without complication, unspecified whether chcf insulin use ([facility]) Heel spur, left Plantar fasciitis Plantar fascial fibromatosis Contracture of left ankle Contracture of right ankle documented in this encounter [facility]* Diagnosis 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 documented in this encounter [facility]* Diagnosis 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 Contracture of right ankle Type 2 diabetes mellitus without complication, unspecified whether chcf insulin use (CMS/HCC) documented in this encounter [facility]* Diagnosis 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 Contracture of right ankle documented in this encounter [facility]* Diagnosis 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 Contracture of right ankle Stress fracture of right foot, initial encounter documented in this encounter [facility]* Diagnosis Stress fracture of right foot, initial encounter- Primary Type 2 diabetes mellitus without complication, unspecified whether chcf insulin use (CMS/HCC) Accessory navicular bone of right foot documented in this encounter [facility]* Diagnosis Posterior tibial tendonitis of right leg- Primary Accessory navicular bone of left foot Type 2 diabetes mellitus without complication, unspecified whether buttermaker continuous churn insulin use (CMS/HCC) Accessory navicular bone of right foot documented in this encounter [facility]* Diagnosis Arthralgia of left temporomandibular joint- Primary Left ear pain Unspecified otalgia Chronic rhinitis Fullness in ear, left documented in this encounter [facility]* Diagnosis 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 Posterior tibial tendonitis of right leg Type 2 diabetes mellitus without complication, unspecified whether chcf insulin use (CMS/HCC) documented in this encounter [facility]* Diagnosis Accessory navicular bone of left foot- Primary documented in this encounter [facility]* Diagnosis Pain in right foot- Primary Pain in limb Accessory navicular bone of right foot [facility] Diagnosis Pain Generalized pain [facility] Diagnosis 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 [facility]* Diagnosis Pre-op evaluation- Primary Preoperative examination, unspecified Gastroesophageal reflux disease, unspecified whether esophagitis present Diabetes mellitus without complication ([facility]) Type II or unspecified type diabetes mellitus [...] 10:05 AM ESTAssociated Problem(s): BMI 60.0-69.9, adult ([facility]) Assessment: diet and exercise encouraged BMI 62 * Assessment & Plan Note - Ary Rocha APRN.CNP - 12/28/2024 10:05 AM ESTAssociated Problem(s): Diabetes mellitus without complication ([facility]) Assessment: managed with oral med, stable Follows up with PCP BG at home 120's HgbA1c 6.6% * Assessment & Plan Note - Ary Rocha APRN.CNP - 12/28/2024 10:04 AM ESTAssociated Problem(s): Acid reflux Assessment: managed with med, stable Follows up with PCP documented in this encounter [facility] note* Diagnosis Pain- Primary Generalized pain Pain Generalized pain Pre-op evaluation- Primary Preoperative examination, unspecified Gastroesophageal reflux disease, unspecified whether esophagitis present Diabetes mellitus without complication ([facility]) Type II or unspecified type diabetes mellitus without mention of complication, not stated as uncontrolled BMI 60.0-69.9, adult ([facility]) Body Mass Index 60.0-69.9, adult AQUILES (obstructive sleep apnea) Obstructive sleep apnea (adult) (pediatric) documented in this encounter [facility] note* Diagnosis Pre-op evaluation- Primary Preoperative examination, unspecified Gastroesophageal reflux disease, unspecified whether esophagitis present Diabetes mellitus without complication (HCC) Type II or unspecified type diabetes mellitus without mention of complication, not stated as uncontrolled BMI 60.0-69.9, adult ([facility]) Body Mass Index 60.0-69.9, adult AQUILES (obstructive sleep apnea) Obstructive sleep apnea (adult) (pediatric) S/P foot surgery, right- Primary Accessory navicular bone of right foot documented in this encounter [facility] note* Diagnosis Pre-op evaluation- Primary Preoperative examination, unspecified Gastroesophageal reflux disease, unspecified whether esophagitis present Diabetes mellitus without complication (HCC) Type II or unspecified type diabetes mellitus without mention of complication, not stated as uncontrolled BMI 60.0-69.9, adult ([facility]) Body Mass Index 60.0-69.9, adult AQUILES (obstructive sleep apnea) Obstructive sleep apnea (adult) (pediatric) S/P foot surgery, right- Primary documented in this encounter [facility] note* Diagnosis Pre-op evaluation- Primary Preoperative examination, unspecified Gastroesophageal reflux disease, unspecified whether esophagitis present Diabetes mellitus without complication (HCC) Type II or unspecified type diabetes mellitus without mention of complication, not stated as uncontrolled BMI 60.0-69.9, adult ([facility]) Body Mass Index 60.0-69.9, adult AQUILES (obstructive sleep apnea) Obstructive sleep apnea (adult) (pediatric) S/P foot surgery, right- Primary Accessory navicular bone of right foot documented in this encounter [facility] note* Diagnosis Pre-op evaluation- Primary Preoperative examination, unspecified Gastroesophageal reflux disease, unspecified whether esophagitis present Diabetes mellitus without complication (HCC) Type II or unspecified type diabetes mellitus without mention of complication, not stated as uncontrolled BMI 60.0-69.9, adult ([facility]) Body Mass Index 60.0-69.9, adult AQUILES (obstructive sleep apnea) Obstructive sleep apnea (adult) (pediatric) S/P foot surgery, right- Primary documented in this encounter [facility] note* Diagnosis Pre-op evaluation- Primary Preoperative examination, unspecified Gastroesophageal reflux disease, unspecified whether esophagitis present Diabetes mellitus without complication (HCC) Type II or unspecified type diabetes mellitus without mention of complication, not stated as uncontrolled BMI 60.0-69.9, adult ([facility]) Body Mass Index 60.0-69.9, adult AQUILES (obstructive sleep apnea) Obstructive sleep apnea (adult) (pediatric) S/P foot surgery, right- Primary S/P foot surgery, right documented in this encounter [facility] note* Diagnosis Pre-op evaluation- Primary Preoperative examination, unspecified Gastroesophageal reflux disease, unspecified whether esophagitis present Diabetes mellitus without complication (HCC) Type II or unspecified type diabetes mellitus without mention of complication, not stated as uncontrolled BMI 60.0-69.9, adult ([facility]) Body Mass Index 60.0-69.9, adult AQUILES (obstructive sleep apnea) Obstructive sleep apnea (adult) (pediatric) S/P foot surgery, right- Primary documented in this encounter [facility] note* Diagnosis Pre-op evaluation- Primary Preoperative examination, unspecified Gastroesophageal reflux disease, unspecified whether esophagitis present Diabetes mellitus without complication (HCC) Type II or unspecified type diabetes mellitus without mention of complication, not stated as uncontrolled BMI 60.0-69.9, adult ([facility]) Body Mass Index 60.0-69.9, adult AQUILES (obstructive sleep apnea) Obstructive sleep apnea (adult) (pediatric) S/P foot surgery, right documented in this encounter [facility] note* Diagnosis Capsulitis of metatarsophalangeal (MTP) joint of right foot- Primary documented in this encounter [facility] note* Diagnosis Pre-op evaluation- Primary Preoperative examination, unspecified Gastroesophageal reflux disease, unspecified whether esophagitis present Diabetes mellitus without complication (HCC) Type II or unspecified type diabetes mellitus without mention of complication, not stated as uncontrolled BMI 60.0-69.9, adult ([facility]) Body Mass Index 60.0-69.9, adult AQUILES (obstructive sleep apnea) Obstructive sleep apnea (adult) (pediatric) S/P foot surgery, right- Primary S/P foot surgery, right documented in this encounter [facility] note* Diagnosis Pre-op evaluation- Primary Preoperative examination, unspecified Gastroesophageal reflux disease, unspecified whether esophagitis present Diabetes mellitus without complication (HCC) Type II or unspecified type diabetes mellitus without mention of complication, not stated as uncontrolled BMI 60.0-69.9, adult ([facility]) Body Mass Index 60.0-69.9, adult AQUILES (obstructive sleep apnea) Obstructive sleep apnea (adult) (pediatric) S/P foot surgery, right documented in this encounter [facility] note* Diagnosis Capsulitis of metatarsophalangeal (MTP) joint of right foot- Primary Type 2 diabetes mellitus without complication, unspecified whether chcf insulin use documented in this encounter [facility] note* Diagnosis Pre-op evaluation- Primary Preoperative examination, unspecified Gastroesophageal reflux disease, unspecified whether esophagitis present Diabetes mellitus without complication (HCC) Type II or unspecified type diabetes mellitus without mention of complication, not stated as uncontrolled BMI 60.0-69.9, adult ([facility]) Body Mass Index 60.0-69.9, adult AQUILES (obstructive sleep apnea) Obstructive sleep apnea (adult) (pediatric) Sinus tarsitis, right- Primary documented in this encounter [facility] note* Diagnosis Pre-op evaluation- Primary Preoperative examination, unspecified Gastroesophageal reflux disease, unspecified whether esophagitis present Diabetes mellitus without complication (HCC) Type II or unspecified type diabetes mellitus without mention of complication, not stated as uncontrolled BMI 60.0-69.9, adult [facility] [facility] [place]) Body Mass Index 60.0-69.9, adult AQUILES (obstructive sleep apnea) Obstructive sleep apnea (adult) (pediatric) S/P foot surgery, right- Primary Chronic pain of right ankle documented in this encounter [facility] note* Diagnosis Pre-op evaluation- Primary Preoperative examination, unspecified Gastroesophageal reflux disease, unspecified whether esophagitis present Diabetes mellitus without complication (HCC) Type II or unspecified type diabetes mellitus without mention of complication, not stated as uncontrolled BMI 60.0-69.9, adult ([facility] [place] Body Mass Index 60.0-69.9, adult AQUILES (obstructive sleep apnea) Obstructive sleep apnea (adult) (pediatric) Chronic pain of right ankle documented in this encounter [facility] note* Diagnosis Pre-op evaluation- Primary Preoperative examination, unspecified Gastroesophageal reflux disease, unspecified whether esophagitis present Diabetes mellitus without complication (HCC) Type II or unspecified type diabetes mellitus without mention of complication, not stated as uncontrolled BMI 60.0-69.9, adult ([facility] [place] Body Mass Index 60.0-69.9, adult AQUILES (obstructive sleep apnea) Obstructive sleep apnea (adult) (pediatric) S/P foot surgery, right- Primary Chronic pain of right ankle documented in this encounter [facility] general Narrative - Reported* Type Description Date Medical History Acquired hypothyroidism Medical History vitamin D deficiency Surgical History cholecystectomy Hospitalization History No Hospitalization histo ry information [facility] [employer] Other History of Present illness Narrative* Patoshashank Avelar, DPM - 09/13/2024 3:20 PM EDT [...] History: Past Medical History: Diagnosis Date Diabetes ([facility] Ear problems GERD (gastroesophageal reflux disease) 2011 [...] without complication, unspecified whether chcf insulin use ([facility] PLAN Patient to keep dry sterile dressing [...] patient Pato Avelar DPM documented in this [facility] course Narrative No data available for this section [facility] Discharge instructions No data available for this section [facility] Discharge instructions Additional Instructions DISCHARGE [...] operative site FOLLOW UP Phone numbers: Office [phone] [ ][facility] Work Phone: Progress note No data available for this section [facility] for referral (narrative)* Diagnostic Procedure Only (Routine) - Closed Specialty Diagnoses / Procedures Referred By Contac t Referred To Contact XR IMAGING Diagnoses Pain Procedures XR FOOT GENERAL 3V AP/LAT/OBL RIGHT RADEX FOOT COMPLETE MINIMUM 3 VIEWS Sean Mata DPM [address] [place] [address] [place] [address] Referral ID Status Reason Start Date Expiration Date V isits Requested Visits Authorized [id number] Closed Auto-Generate d Referral 12/05/2024 01/04/2026 1 1 [facility] for referral (narrative)* Diagnostic Procedure Only (Routine) - Closed Specialty Diagnoses / Procedures Referred By Contac t Referred To Contact XR IMAGING Diagnoses Pain Procedures XR FOOT GENERAL 3V AP/LAT/OBL RIGHT RADEX FOOT COMPLETE MINIMUM 3 VIEWS Sean Mata DPM [address] [place] [address] [place] [address] Referral ID Status Reason Start Date Expiration Date V isits Requested Visits Authorized [id number] Closed Auto-Generate d Referral 12/05/2024 01/04/2026 1 1 [facility] for referral (narrative)No reason for referral information [facility]: [facility] for visit Narrative* Diagnostic Procedure Only (Routine) - Closed Specialty Diagnoses / Procedures Referred By Contac t Referred To Contact XR IMAGING Diagnoses Pain Procedures XR FOOT GENERAL 3V AP/LAT/OBL RIGHT RADEX FOOT COMPLETE MINIMUM 3 VIEWS Sean Mata DPM [address] [place] [address] [place] [address] Referral ID Status Reason Start Date Expiration Date V isits Requested Visits Authorized [id number] Closed Auto-Generate d Referral 12/05/2024 01/04/2026 1 1 [facility] for visit Narrative* Diagnostic Procedure Only (Routine) - Closed Specialty Diagnoses / Procedures Referred By Contac t Referred To Contact XR IMAGING Diagnoses S/P foot surgery, right Procedures XR FOOT GENERAL 3V AP/LAT/OBL RIGHT RADEX FOOT COMPLETE MINIMUM 3 VIEWS Sean Mata DPM [address] [place] [address] Phone: tel: fax: [place] [address] Referral ID Status Reason Start Date Expiration Date V isits Requested Visits Authorized [id number] Closed Auto-Generate d Referral 02/06/2025 03/07/2026 1 1 [facility] for visit Narrative* Diagnostic Procedure Only (Routine) - Closed Specialty Diagnoses / Procedures Referred By Contac t Referred To Contact XR IMAGING Diagnoses S/P foot surgery, right Procedures XR FOOT GENERAL 3V AP/LAT/OBL RIGHT RADEX FOOT COMPLETE MINIMUM 3 VIEWS Sean Mata DPM [address] [place] [address] Phone: tel: fax: [place] [address] Referral ID Status Reason Start Date Expiration Date V isits Requested Visits Authorized [id number] Closed Auto-Generate d Referral 03/07/2025 04/06/2026 1 1 [facility] for visit Narrative* MRI/CT (Routine) - Closed Specialty Diagnoses / Procedures Referred By Alex gamboa Referred To Contact MR IMAGING Diagnoses Chronic pain of right ankle Procedures MRI ANKLE WO IVCON RIGHT MRI ANY JT LOWER EXTREM W/O CONTRAST MATRL Sean Mata DPM [address] [address] Phone: tel: fax: [place] [address] Referral ID Status Reason Start Date Expiration Date V isits Requested Visits Authorized [id number] Closed Auto-Generate d Referral 05/22/2025 06/11/2025 1 1 [facility] Summary Purpose Family History Relationship Condition Age at Onset Recorded Date/T luis alfredo Not Specified Unknown Heart disease Unknown Relationship Condition Age at Onset Recorded Date/T luis alfredo mother Unknown Heart disease Unknown Relationship Condition Age at Onset Recorded Date/T luis alfredo mother Unknown Heart disease Unknown Diabetes mellitus Unknown Relationship Condition Age at Onset Recorded Date/T luis alfredo mother Unknown Heart disease Unknown Diabetes mellitus Unknown sister Congenital anomaly of heart Unknown Advance Directives Advance Directive Response Recorded [...] ingrown nail February 05, 2025 4:4 4pm Chief Complaint Admit Date chest pain June 15, 2025 1:59 am Reason for Visit Admit Date Chest pain June 15, 2025 1:59 am Diabetes mellitus June 15, 2025 1:59 am Chief Complaint Admit Date chest pain June 15, 2025 1:59 am hospital f/u 2025 2: 03pm Reason for Visit Admit Date Diabetes mellitus June 15, 2025 1:59 am Chest pain June 15, 2025 1:59 am Reason for Referral Specialty Diagnoses / Procedures Referred By Alex gamboa Referred To Contact Diagnoses Accessory navicular bone of right foot Pato Avelar DPM [address] [address] Referral ID Status Reason Start Date Expiration Date V isits Requested Visits Authorized [id number] Pending Review 09/07/2024 03/06/2025 1 1 Additional [...] Comments Post Op Reason Comments Patient Update Reason Comments Foot Pain Reason Comments Post Op Pain Reason Comments Follow-up Rt edl Reason Comments Post Op INFORMATION SOURCE (unrecogn ized section and content) DATE CREATED AUTHOR 05/06/2023 [facility] DATE CREATED AUTHOR AUTHOR'S ORGANIZ ATION 04/26/2024 [facility] DATE CREATED AUTHOR AUTHOR'S ORGANIZ ATION 07/01/2024 [facility] EPIC DATE CREATED AUTHOR AUTHOR'S ORGANIZ ATION 09/12/2024 [facility] DATE CREATED AUTHOR AUTHOR'S ORGANIZ ATION 09/13/2024 [facility] DATE CREATED AUTHOR AUTHOR'S ORGANIZ ATION 09/15/2024 [facility] DATE CREATED AUTHOR AUTHOR'S ORGANIZ ATION 12/09/2024 [facility] DATE CREATED AUTHOR AUTHOR'S ORGANIZ ATION 03/22/2025 [facility] EPIC DATE CREATED AUTHOR AUTHOR'S ORGANIZ ATION 06/15/2025 [facility] DATE CREATED AUTHOR AUTHOR'S ORGANIZ ATION 07/04/2025 [facility] Care Teams (unrecognized sec tion and content) Team Status: Active Member Role Status Dates LORI Alvarez Primary Care Provider Active Team Status: Active Member Role Status Dates LORI Alvarez Primary Care Provider Active Start: June 15, 2025 Marek Dennis DO Emergency Provider Active St art: June 15, 2025 Neo Mclaughlin MD Admit Provider Active S tart: June 15, 2025 Neo Mclaughlin MD Attending Provider Active Start: June 15, 2025 Team Status: Inactive Member Role Status Dates LORI Pat Attending Provider Active S tart: February 27, 2024 End: February 27, 2024 Monique Emmanuel NP-C Primary Care Provider Active Start: February 27, [...] May 16, 2024 End: May 16, 2024 Chopper Gun Operator Relationship Specialty Start Date End Date Erich Garcia MD [address] [place] [phone] PCP - General Family Medicine 07/24/24 Monique Emmanuel MD [address] [place] [address] Referring Physician Family Medicine 03/29/24 Monique Emmanuel MD [address] [place] [address] Referring Physician Family Medicine 07/24/24 Jaime Camargo DO [address] [place] [address] Otolaryngology 07/24/24 Chopper Gun Operator Relationship Specialty Start Date End Date Erich Garcia MD [address] [place] [phone] PCP - General Family Medicine 07/24/24 Monique Emmanuel MD [address] [place] [address] Referring Physician Family Medicine 03/29/24 Monique Emmanuel MD [address] [place] [address] Referring Physician Family Medicine 07/24/24 Jaime Camargo DO [address] [place] [address] Otolaryngology 07/24/24 Chopper Gun Operator Relationship Specialty [place] [address] [place] [phone] PCP - General Family Medicine 07/24/24 Monique Emmanuel MD [address] [place] [address] Referring Physician Family Medicine 03/29/24 Monique Emmanuel MD [address] [place] [address] Referring Physician Family Medicine 07/24/24 Jaime Camargo DO [address] [place] [address] Otolaryngology 07/24/24 Chopper Gun Operator Relationship Specialty Start Date End Date Erich Garcia MD [address] [place] [address] PCP - General Family Medicine 07/24/24 Monique Emmanuel MD [address] [place] [address] Referring Physician Family Medicine 03/29/24 Monique Emmanuel MD [address] [place] [address] Referring Physician Family Medicine 07/24/24 Jaime Camargo DO [address] [place] [address] Otolaryngology 07/24/24 Chopper Gun Operator Relationship Specialty Start Date End Date Erich Garcia MD [address] [place] [phone] PCP - General Family Medicine 07/24/24 Monique Emmanuel MD [address] [place] [address] Referring Physician Family Medicine 03/29/24 Monique Emmanuel MD [address] [place] [address] Referring Physician Family Medicine 07/24/24 Jaime Camargo DO [address] [place] [address] Otolaryngology 07/24/24 Chopper Gun Operator Relationship Specialty Start Date End Date Erich Garcia MD [address] [place] [phone] PCP - General Family Medicine 07/24/24 Monique Emmanuel MD [address] [place] [address] Referring Physician Family Medicine 03/29/24 Monique Emmanuel MD [address] [place] [address] Referring Physician Family Medicine 07/24/24 Jaime Camargo DO [address] [place] [address] Otolaryngology 07/24/24 Chopper Gun Operator Relationship Specialty Start Date End Date Erich Garcia MD [address] [place] [phone] PCP - General Family Medicine 07/24/24 Monique Emmanuel MD [address] [place] [address] Referring Physician Family Medicine 03/29/24 Monique Emmanuel MD [address] [place] [address] Referring Physician Family Medicine 07/24/24 Jamie Camargo DO [address] [place] [address] Otolaryngology 07/24/24 Chopper Gun Operator Relationship Specialty Start Date End Date Erich Garcia MD [address] [place] [phone] PCP - General Family Medicine 07/24/24 Monique Emmanuel MD [address] [place] [address] Referring Physician Family Medicine 03/29/24 Monique Emmanuel MD [address] [place] [address] Referring Physician Family Medicine 07/24/24 Jaime Camargo DO [address] [place] [address] Otolaryngology 07/24/24 Chopper Gun Operator Relationship Specialty Start Date End Date Unallocated, [place] [address] [place], [place] [address] [address] PCP - General Family Medicine 03/29/24 Monique Emmanuel MD [address] [place] [address] Referring Physician Family Medicine 03/29/24 Chopper Gun Operator Relationship Specialty Start Date End Date Erich Garcia MD [address] [place] [phone] PCP - General Family Medicine 07/24/24 Monique Emmanuel MD [address] [place] [address] Referring Physician Family Medicine 03/29/24 Monique Emmanuel MD [address] [place] [address] Referring Physician Family Medicine 07/24/24 Jaime Camargo DO [address] [place] [address] Otolaryngology 07/24/24 Chopper Gun Operator Relationship Specialty Start Date End Date Unallocated, [place] [address] [place], [place] [address] [address] PCP - General Family Medicine 03/29/24 Monique Emmanuel MD [facility] [place] [address] Referring Physician Family Medicine 03/29/24 Chopper Gun Operator Relationship Specialty Start Date End Date Erich Garcia MD [facility] [place] [address] PCP - General Family Medicine 07/24/24 Monique Emmanuel MD [address] [place] [address] Referring Physician Family Medicine 03/29/24 Monique Emmanuel MD [address] [place] [address] Referring Physician Family Medicine 07/24/24 Jaime Camargo DO [address] [place] [address] Otolaryngology 07/24/24 Chopper Gun Operator Relationship Specialty Start Date End Date Erich Garcia MD [address] [place] [phone] PCP - General Family Medicine 07/24/24 Monique Emmanuel MD [address] [place] [address] Referring Physician Family Medicine 03/29/24 Monique Emmanuel MD [address] [place] [address] Referring Physician Family Medicine 07/24/24 Jaime Camargo DO [address] [place] [address] Otolaryngology 07/24/24 Chopper Gun Operator Relationship Specialty Start Date End Date Erich Garcia MD [address] [place] [phone] PCP - General Family Medicine 07/24/24 Monique Emmanuel MD [address] [place] [address] Referring Physician Family Medicine 03/29/24 Monique Emmanuel MD [address] [place] [address] Referring Physician Family Medicine 07/24/24 Jaime Camargo DO [address] [facility] [place] [address] Otolaryngology 07/24/24 Chopper Gun Operator Relationship Specialty Start Date End Date Unallocated, Noms MD Ousmane [address] [place] [address] PCP - General Family Medicine 03/29/24 07/23/24 Erich Garcia MD [address] [place] [phone] PCP - General Family Medicine 07/24/24 Monique Emmanuel MD [address] [place] [address] Referring Physician Family Medicine 03/29/24 Monique Emmanuel MD [address] [place] [address] Referring Physician Family Medicine 07/24/24 Jaime Camargo DO [address] [place] [address] Otolaryngology 07/24/24 Chopper Gun Operator Relationship Specialty Start Date End Date Monique Emmanuel CNP [address] [place] [address] PCP - General Internal Medicine 12/17/24 Chopper Gun Operator Relationship Specialty Start Date End Date Monique Emmanuel CNP [address] [place] [address] PCP - General Internal Medicine 12/17/24 Chopper Gun Operator Relationship Specialty Start Date End Date Monique Emmanuel CNP [address] [place] [address] PCP - General Internal Medicine 12/17/24 Chopper Gun Operator Relationship Specialty Start Date End Date Monique Emmanuel CNP [address] [place] [address] PCP - General Internal Medicine 12/17/24 Chopper Gun Operator Relationship Specialty Start Date End Date Monique Emmanuel CNP [address] [place] [address] PCP - General Internal Medicine 12/17/24 Chopper Gun Operator Relationship Specialty Start Date End Date Monique Emmanuel CNP [address] [place] [address] PCP - General Internal Medicine 12/17/24 Chopper Gun Operator Relationship Specialty Start Date End Date Monique Emmanuel CNP [address] [place] [facility] [place] [address] PCP - General Internal Medicine 12/17/24 Chopper Gun Operator Relationship Specialty Start Date End Date Monique Emmanuel CNP [address] [place] [address] PCP - General Internal Medicine 12/17/24 Team Status: Inactive Member Role Status Dates Monique Emmanuel , MARKER MACHINE-C Primary Care Provider Active Start: February 05, 2025 End: February 05, 2025 Radha Kong APRN Attending Provider Active Start: February 05, 2025 End: February 05, 2025 Chopper Gun Operator Relationship Specialty Start Date End Date Monique Emmanuel CNP [address] [place] [address] PCP - General Internal Medicine 12/17/24 Chopper Gun Operator Relationship Specialty Start Date End Date Monique Emmanuel CNP [address] [place] [address] PCP - General Internal Medicine 12/17/24 Chopper Gun Operator Relationship Specialty Start Date End Date Monique Emmanuel CNP [address] [place] [address] PCP - General Internal Medicine 12/17/24 Chopper Gun Operator Relationship Specialty Start Date End Date Erich Garcia MD [address] [place] [address] PCP - General Family Medicine 07/24/24 Monique Emmanuel MD [address] [place] [address] Referring Physician Family Medicine 03/29/24 Monique Emmanuel MD [address] [place] [address] Referring Physician Family Medicine 07/24/24 Jaime Camargo DO [address] [place] [address] Otolaryngology 07/24/24 Chopper Gun Operator Relationship Specialty Start Date End Date Erich Garcia MD [address] [place] [facility] [place] [address] PCP - General Family Medicine 07/24/24 Monique Emmanuel MD [address] [place] [address] Referring Physician Family Medicine 03/29/24 Monique Emmanuel MD [address] [place] [address] Referring Physician Family Medicine 07/24/24 Jaime Camargo DO [address] [place] [address] Otolaryngology 07/24/24 Chopper Gun Operator Relationship Specialty Start Date End Date Monique Emmanuel CNP [address] [place] [address] PCP - General Internal Medicine 12/17/24 Chopper Gun Operator Relationship Specialty Start Date End Date Monique Emmanuel CNP [address] [place] [address] PCP - General Internal Medicine 12/17/24 Chopper Gun Operator Relationship Specialty Start Date End Date Monique Emmanuel CNP [address] [place] [address] PCP - General Internal Medicine 12/17/24 Chopper Gun Operator Relationship Specialty Start Date End Date Monique Emmanuel CNP [address] [place] [place] [place] [address] PCP - General Internal Medicine 12/17/24 Chopper Gun Operator Relationship Specialty Start Date End Date Monique Emmanuel CNP [address] [place] [address] PCP - General Internal Medicine 12/17/24 Chopper Gun Operator Relationship Specialty Start Date End Date Monique Emmanuel CNP [address] [place] [address] PCP - General Internal Medicine 12/17/24 Chopper Gun Operator Relationship Specialty Start Date End Date Monique Emmanuel CNP [address] [facility], [place] [address] PCP - General Internal Medicine 12/17/24 Team Status: Active Member Role Status Dates Monique Emmanuel NP-C Primary Care Provider Active Start: June 15, 2025 Marek Dennis , Emergency Provider Active St art: June 15, 2025 Neo Mclaughlin MD Admit Provider Active S tart: June 15, 2025 Maryanne Unger RN Other Provider Active Star t: June 15, 2025 Balaji Cohen MD Other Provider Active Start: Rogers 2024 Kvng Carcamo MD Other Provider Active Start: June 15, 2025 Inge Adler MD Attending Provider Active Sta rt: June 15, 2025 Inge Adler MD Other Provider Active Start: June 15, 2025 Merry Nieves APRN Other Provider Active Sta rt: June 15, 2025 Mitch Galaviz MD Other Provider Active Start: June 15, 2025 Team Status: Inactive Member Role Status Dates Monique Emmanuel NP-C Primary Care Provider Active Start: 2025 End: 2025 Inge Adler MD Attending Provider Active Sta rt: 2025 End: 2025 Goals (unrecognized section and content) Type Treatment Intervention Code Status: Full Code Goals may be documented in an alternate section Source Comments (unrecognize d section and content) In the event this informatio n is protected by the Federal Confidentiality of Alcohol and Drug Abuse Patient Records regulations: The Federal rules restrict any use of the information to criminally investigate or prosecute any alcohol or drug abuse patient.[facility] the event this information is protected by the Federal Confidentiality of Alcohol and Drug Abuse Patient Records regulations: The Federal rules restrict any use of the information to criminally investigate or prosecute any alcohol or drug abuse patient.[facility] the event this information is protected by the Federal Confidentiality of Alcohol and Drug Abuse Patient Records regulations: The Federal rules restrict any use of the information to criminally investigate or prosecute any alcohol or drug abuse patient.[facility] the event this information is protected by the Federal Confidentiality of Alcohol and Drug Abuse Patient Records regulations: The Federal rules restrict any use of the information to criminally investigate or prosecute any alcohol or drug abuse patient.[facility] the event this information is protected by the Federal Confidentiality of Alcohol and Drug Abuse Patient Records regulations: The Federal rules restrict any use of the information to criminally investigate or prosecute any alcohol or drug abuse patient.[facility] the event this information is protected by the Federal Confidentiality of Alcohol and Drug Abuse Patient Records regulations: The Federal rules restrict any use of the information to criminally investigate or prosecute any alcohol or drug abuse patient.[facility] the event this information is protected by the Federal Confidentiality of Alcohol and Drug Abuse Patient Records regulations: The Federal rules restrict any use of the information to criminally investigate or prosecute any alcohol or drug abuse patient.[facility] the event this information is protected by the Federal Confidentiality of Alcohol and Drug Abuse Patient Records regulations: The Federal rules restrict any use of the information to criminally investigate or prosecute any alcohol or drug abuse patient.[facility] the event this information is protected by the Federal Confidentiality of Alcohol and Drug Abuse Patient Records regulations: The Federal rules restrict any use of the information to criminally investigate or prosecute any alcohol or drug abuse patient.[facility] the event this information is protected by the Federal Confidentiality of Alcohol and Drug Abuse Patient Records regulations: The Federal rules restrict any use of the information to criminally investigate or prosecute any alcohol or drug abuse patient.[facility] the event this information is protected by the Federal Confidentiality of Alcohol and Drug Abuse Patient Records regulations: The Federal rules restrict any use of the information to criminally investigate or prosecute any alcohol or drug abuse patient.[facility] System[facility] the event this information is protected by the Federal Confidentiality of Alcohol and Drug Abuse Patient Records regulations: The Federal rules restrict any use of the information to criminally investigate or prosecute any alcohol or drug abuse patient.[facility] SystemIn the event this information is protected by the Federal Confidentiality of Alcohol and Drug Abuse Patient Records regulations: The Federal rules restrict any use of the information to criminally investigate or prosecute any alcohol or drug abuse patient.[facility] SystemIn the event this information is protected by the Federal Confidentiality of Alcohol and Drug Abuse Patient Records regulations: The Federal rules restrict any use of the information to criminally investigate or prosecute any alcohol or drug abuse patient.[facility] SystemIn the event this information is protected by the Federal Confidentiality of Alcohol and Drug Abuse Patient Records regulations: The Federal rules restrict any use of the information to criminally investigate or prosecute any alcohol or drug abuse patient.[facility] SystemIn the event this information is protected by the Federal Confidentiality of Alcohol and Drug Abuse Patient Records regulations: The Federal rules restrict any use of the information to criminally investigate or prosecute any alcohol or drug abuse patient.[facility] SystemIn the event this information is protected by the Federal Confidentiality of Alcohol and Drug Abuse Patient Records regulations: The Federal rules restrict any use of the information to criminally investigate or prosecute any alcohol or drug abuse patient.[facility] SystemIn the event this information is protected by the Federal Confidentiality of Alcohol and Drug Abuse Patient Records regulations: The Federal rules restrict any use of the information to criminally investigate or prosecute any alcohol or drug abuse patient.[facility] SystemIn the event this information is protected by the Federal Confidentiality of Alcohol and Drug Abuse Patient Records regulations: The Federal rules restrict any use of the information to criminally investigate or prosecute any alcohol or drug abuse patient.[facility] SystemIn the event this information is protected by the Federal Confidentiality of Alcohol and Drug Abuse Patient Records regulations: The Federal rules restrict any use of the information to criminally investigate or prosecute any alcohol or drug abuse patient.[facility] SystemIn the event this information is protected by the Federal Confidentiality of Alcohol and Drug Abuse Patient Records regulations: The Federal rules restrict any use of the information to criminally investigate or prosecute any alcohol or drug abuse patient.[facility] SystemIn the event this information is protected by the Federal Confidentiality of Alcohol and Drug Abuse Patient Records regulations: The Federal rules restrict any use of the information to criminally investigate or prosecute any alcohol or drug abuse patient.[facility] SystemIn the event this information is protected by the Federal Confidentiality of Alcohol and Drug Abuse Patient Records regulations: The Federal rules restrict any use of the information to criminally investigate or prosecute any alcohol or drug abuse patient.[facility] SystemIn the event this information is protected by the Federal Confidentiality of Alcohol and Drug Abuse Patient Records regulations: The Federal rules restrict any use of the information to criminally investigate or prosecute any alcohol or drug abuse patient.[facility] SystemIn the event this information is protected by the Federal Confidentiality of Alcohol and Drug Abuse Patient Records regulations: The Federal rules restrict any use of the information to criminally investigate or prosecute any alcohol or drug abuse patient.[facility] SystemIn the event this information is protected by the Federal Confidentiality of Alcohol and Drug Abuse Patient Records regulations: The Federal rules restrict any use of the information to criminally investigate or prosecute any alcohol or drug abuse patient.[facility] SystemIn the event this information is protected by the Federal Confidentiality of Alcohol and Drug Abuse Patient Records regulations: The Federal rules restrict any use of the information to criminally investigate or prosecute any alcohol or drug abuse patient.[facility] SystemIn the event this information is protected by the Federal Confidentiality of Alcohol and Drug Abuse Patient Records regulations: The Federal rules restrict any use of the information to criminally investigate or prosecute any alcohol or drug abuse patient.[facility] SystemIn the event this information is protected by the Federal Confidentiality of Alcohol and Drug Abuse Patient Records regulations: The Federal rules restrict any use of the information to criminally investigate or prosecute any alcohol or drug abuse patient.[facility] SystemIn the event this information is protected by the Federal Confidentiality of Alcohol and Drug Abuse Patient Records regulations: The Federal rules restrict any use of the information to criminally investigate or prosecute any alcohol or drug abuse patient.[facility] FOR RECORDS PERTAINING TO PATIENTS WHO ARE [...] BE BASED ON THE PRIMARY CLINICAL RECORDS. [facility]. provides no warranty or guarantee of the accuracy or completeness of information in this document.
--- OUTSIDE RECORDS SUMMARY | 2025-07-11 22:42 | XMS_ITS | Encounter Summary ---
Author Organization [facility] Address [address] [place] [address] Care Team Providers Care Lab Nurse Name Role Phone DanniMonique Spencer BONILLA Primary Care Provider + Source Comments In the event this information is protected by the Federal Confidentiality of Alcohol and Drug AbusePatient Records regulations: The Federal rules restrict any use of the information to criminally investigate or prosecute any alcohol or drug abuse patient.[facility] Encounter Details Date Type Department Care Team (Late st Contact Info) Description 04/12/2025 Get Medical Advice Orthopaedics [address] [place] [address] Melvin [place], DPM [address] [place], [place] [id number] Pain not going away Social History Tobacco [...] is lower risk 8 12/12/2024 Data from: https://www.neighborhoodatlas.[facility]/. Last address used for calculation [address] [facility] 12/12/2024 Comments Unknown Sex and Gender Information Value Date Recorded Sex Assigned at Not on file Legal Sex Female 12:17 PM EDT Gender Identity Not on file Sexual Orientation Not on file documented as of this encounter Plan of Treatment Not on file documented as of this encounter Visit Diagnoses Not on filedocumented in this encounter Care Teams Lab Nurse Relationship Specialty Start Date End Date Monique Razo CNP [address] [place] [address] PCP - General Internal Medicine 12/17/24 documented as of this encounter
--- OUTSIDE RECORDS SUMMARY | 2025-07-11 22:42 | XMS_ITS | Encounter Summary ---
Author Organization [facility] Address [address] [place] [address] Care Team Providers Care Change Control Analyst Name Role Phone DanniMonique Spencer BONILLA Primary Care Provider + Source Comments In the event this information is protected by the Federal Confidentiality of Alcohol and Drug AbusePatient Records regulations: The Federal rules restrict any use of the information to criminally investigate or prosecute any alcohol or drug abuse patient.[facility] Encounter Details Date Type Department Care Team (Late st Contact Info) Description 05/17/2025 Get Medical Advice Orthopaedics [address] [place] [address] Melvin June, DPM [address] [place], [place] [id number] Boot Social History Tobacco Use Types Packs/Day [...] is lower risk 8 12/12/2024 Data from: https://www.neighborhoodatlas.medicine.[facility]/. Last address used for calculation [address] [place] [address] 12/12/2024 Comments Unknown Sex and Gender Information Value Date Recorded Sex Assigned at Not on file Legal Sex Female 12:17 PM EDT Gender Identity Not on file Sexual Orientation Not on file documented as of this encounter Plan of Treatment Not on file documented as of this encounter Visit Diagnoses Not on filedocumented in this encounter Care Teams Change Control Analyst Relationship Specialty Start Date End Date Monique Razo CNP [address] [place] [address] PCP - General Internal Medicine 12/17/24 documented as of this encounter
--- OUTSIDE RECORDS SUMMARY | 2025-07-11 22:42 | XMS_ITS | Encounter Summary ---
Author Organization [facility] Address [address] [place] [address] Care Team Providers Care Blood Bank Order Control Clerk Name Role Phone Monique Razo CNP Primary Care Provider + Source Comments In the event this information is protected by the Federal Confidentiality of Alcohol and Drug AbusePatient Records regulations: The Federal rules restrict any use of the information to criminally investigate or prosecute any alcohol or drug abuse patient.[facility] Encounter Details Date Type Department Care Team (Late st Contact Info) Description 12/28/2024 Patient Msg Pre Anesthesia [address] [place] [address] Ary Rocha APRN.NURSE'S ASSISTANT [address] [place] [address] Pre-op Instructions Social History Tobacco Use Types [...] is lower risk 8 12/12/2024 Data from: https://www.neighborhoodatlas.[facility].edu/. Last address used for calculation [address] [...] on filedocumented in this encounter Care Teams Blood Bank Order Control Clerk Relationship Specialty Start Date End Date Monique Razo CNP [address] [place] [address] PCP - General Internal Medicine 12/17/24 documented as of this encounter
--- OUTSIDE RECORDS SUMMARY | 2025-07-11 22:42 | XMS_ITS | Encounter Summary ---
Author Organization [facility] Address [address] [place] [address] Care Team Providers Care Doubling Machine Operator Name Role Phone Cindi Razoela Spencer BONILLA Primary Care Provider + Source Comments In the event this information is protected by the Federal Confidentiality of Alcohol and Drug AbusePatient Records regulations: The Federal rules restrict any use of the information to criminally investigate or prosecute any alcohol or drug abuse patient.[facility] Encounter Details Date Type Department Care Team (Late st Contact Info) Description 12/20/2024 Get Medical Advice Orthopaedics [address] [place] [address] Melvin June, DPM [address] [place] [address] Kyung Paul Social History Tobacco Use Types Packs/Day Years Used Date Smoking Tobacco: Never Assessed PHQ-2 Answer Date Recorded PHQ-2 score 2 12/05/2024 Area Deprivation Index Answer Date Ye rded National Score (1-100), lower number is lower ri sk 86 12/12/2024 State Score (1-10), lower number is lower risk 8 12/12/2024 Data from: https://www.neighborhoodatlas.medicine.[facility].edu/. Last address used for calculation [address] [place] [address] 12/12/2024 Comments Unknown Sex and Gender Information Value Date Recorded Sex Assigned at Not on file Legal Sex Female 12:17 PM EDT Gender Identity Not on file Sexual Orientation Not on file documented as of this encounter Plan of Treatment Not on file documented as of this encounter Visit Diagnoses Not on filedocumented in this encounter Care Teams Doubling Machine Operator Relationship Specialty Start Date End Date Monique Razo CNP [address] [place] [address] PCP - General Internal Medicine 12/17/24 documented as of this encounter
--- OUTSIDE RECORDS SUMMARY | 2025-07-11 22:42 | XMS_ITS | Patient Health Record ---
Author Organization [facility] Address [address] [place] [address] Care Team Providers Care Internet Project Manager Name Role Phone Grant Reinaldo Primary Care Provider [phone] Lizzette Jones Unavailable Mey Duong Unavailable [phone] Katrin Duran Unavailable [phone] Tina Carrasco Unavailable [phone] Reason For Referral No Information Encounters Encounter Location Date Provider Diagnosis [facility] [address] [place] [address] 02/28/2025 Mey Ad Acute gingivitis, plaque induced K05.00 [facility] [address] [place] [address] 08/29/2024 Mey Duong Acute gingivitis, plaque induced K05.00 ; Other dental procedure status Z98.818 ; Encounter for dental examination and cleaning with abnormal findings Z01.21 ; Dental caries on pit and fissure surface penetrating into dentin K02.52 and Disturbances in tooth eruption K00.6 [place] [address] [facility] [facility] [place] [address] 09/18/2024 Lizzette Paredes Dental caries on pit [...] 1 04:30:00 PM, [address], [place], [address], Provider Name:Mey Duong , 09/12/2025 03:15:00 PM, [address], [place], [address], Insurance Providers Payer Name Payer Address Payer Phone Subscriber Number Group Number Insured Name Patient Relationship to Insured Coverage Start Date Coverage End Date ANTHEM Primary [address] [place] [phone] [id number] NOEL ROCHE Self - patient is the insured 3 DENTAL [employer] PPO [address] [place] [address] [id number] DELORES ROCHE Spouse - patient is the spouse of the insured 3
--- OUTSIDE RECORDS SUMMARY | 2025-07-11 22:42 | XMS_ITS | Encounter Summary ---
Author Organization [facility] Address [address] [place] [address] Care Team Providers Care Companion Caregiver Name Role Phone DanniMonique Spencer BONILLA Primary Care Provider + Source Comments In the event this information is protected by the Federal Confidentiality of Alcohol and Drug AbusePatient Records regulations: The Federal rules restrict any use of the information to criminally investigate or prosecute any alcohol or drug abuse patient.[facility] Encounter Details Date Type Department Care Team (Late st Contact Info) Description 02/27/2025 Get Medical Advice Orthopaedics [address] [place] [address] Melvin June, DPM [address] [place], [place] [id number] Pain Social History Tobacco Use Types Packs/Day [...] is lower risk 8 12/12/2024 Data from: https://www.neighborhoodatlas.medicine.[facility]/. Last address used for calculation [address] [place] [place] [address] 12/12/2024 Comments Unknown Sex and Gender Information Value Date Recorded Sex Assigned at Not on file Legal Sex Female 12:17 PM EDT Gender Identity Not on file Sexual Orientation Not on file documented as of this encounter Plan of Treatment Not on file documented as of this encounter Visit Diagnoses Not on filedocumented in this encounter Care Teams Companion Caregiver Relationship Specialty Start Date End Date Monique Razo CNP [address] [place] [address] PCP - General Internal Medicine 12/17/24 documented as of this encounter
--- OUTSIDE RECORDS SUMMARY | 2025-07-11 22:42 | XMS_ITS | Encounter Summary ---
Author Organization [facility] Address [address] [place] [address] Care Team Providers Care Wind Turbine Mechanical Engineer Name Role Phone Monique Razo MD Unavailable [phone] Unallocated, Keily Provider Primary Care Provi anna Monique Razo MD Unavailable [phone] Erich Garcia MD Primary Care Provider [phone] Jaime Woods DO Unavailable [phone] Encounter Details Date Type Department Care Team (Late st Contact Info) Description 05/21/2024 Abstract [facility] [address] [place] [address] Pato Koehler, DPM [address] [address] Social History Tobacco Use Types [...] EDT Office Visit [facility] [address] [place] [address] Pato Koehler DPM [address] [address] documented as of this encounter Visit Diagnoses Not on filedocumented in this encounter Care Teams Wind Turbine Mechanical Engineer Relationship Specialty Start Date End Date Unallocated, Noms Provider, [address] [place] [address] PCP - General Family Medicine 03/29/24 07/23/24 Erich Garcia MD [address] [place] [address] PCP - General Family Medicine 07/24/24 Monique Razo MD [address] [place] [address] Referring Physician Family Medicine 03/29/24 Monique Razo MD [address] [place] [address] Referring Physician Family Medicine 07/24/24 Jaime Woods DO [address] [place] [address] Otolaryngology 07/24/24 documented as of this encounter
--- OUTSIDE RECORDS SUMMARY | 2025-07-11 22:42 | XMS_ITS | Encounter Summary ---
Author Organization [facility] Address [address] [place] [address] Care Team Providers Care Continuous Improvement Consultant Name Role Phone Monique Razo MD Unavailable [phone] Unallocated, Keily Provider Primary Care Provi anna Monique Razo MD Unavailable [phone] Erich Garcia MD Primary Care Provider [phone] Jaime Woods DO Unavailable [phone] Encounter Details Date Type Department Care Team (Late st Contact Info) Description 05/16/2024 Abstract [facility] [address] [place] [address] Pato Koehler DPM [address] [address] Social History Tobacco Use Types [...] EDT Office Visit [facility] [address] [place] [address] Pato Koehler DPM [address] [address] documented as of this encounter Visit Diagnoses Not on filedocumented in this encounter Care Teams Continuous Improvement Consultant Relationship Specialty Start Date End Date Unallocated, Noms Provider, [address] [place] [address] PCP - General Family Medicine 03/29/24 07/23/24 Erich Garcia MD [address] [place] [address] PCP - General Family Medicine 07/24/24 Monique Razo MD [address] [place] [address] Referring Physician Family Medicine 03/29/24 Monique Razo MD [address] [place] [address] Referring Physician Family Medicine 07/24/24 Jaime Woods DO [address] [place] [address] Otolaryngology 07/24/24 documented as of this encounter
--- OUTSIDE RECORDS SUMMARY | 2025-07-11 22:42 | XMS_ITS | Encounter Summary ---
Author Organization Address [address] [place] [address] Care Team Providers Care Stock Saw Operator Name Role Phone Monique Razo CNP Primary Care Provider + Source Comments In the event this information is protected by the Federal Confidentiality of Alcohol and Drug AbusePatient Records regulations: The Federal rules restrict any use of the information to criminally investigate or prosecute any alcohol or drug abuse patient. Encounter Details Date Type Department Care Team (Late st Contact Info) Description 06/05/2025 Patient Msg Radiology MRI [address] [place] [address] Provider, Cc MRI APT Social History [...] is lower risk 8 12/12/2024 Data from: https://www.neighborhoodatlas.medicine.[facility].edu/. Last address used for calculation [address] [place] [address] 12/12/2024 Comments Unknown Sex and Gender Information Value Date Recorded Sex Assigned at Not on file Legal Sex Female 12:17 PM EDT Gender Identity Not on file Sexual Orientation Not on file documented as of this encounter Plan of Treatment Not on file documented as of this encounter Visit Diagnoses Not on filedocumented in this encounter Care Teams Stock Saw Operator Relationship Specialty Start Date End Date Monique Razo CNP [address] [place] [address] PCP - General Internal Medicine 12/17/24 documented as of this encounter
--- OUTSIDE RECORDS SUMMARY | 2025-07-11 22:42 | XMS_ITS | Encounter Summary ---
Author Organization [facility] Address [address] [place] [address] Care Team Providers Care Commercial Fishing Vessel Operator Name Role Phone DanniMonique Spencer BONILLA Primary Care Provider + Source Comments In the event this information is protected by the Federal Confidentiality of Alcohol and Drug AbusePatient Records regulations: The Federal rules restrict any use of the information to criminally investigate or prosecute any alcohol or drug abuse patient.[facility] Encounter Details Date Type Department Care Team (Late st Contact Info) Description 03/27/2025 Get Medical Advice Orthopaedics [address] [place] [address] Melvin June, DPM [address] [place], [place] [phone] Work release Social History Tobacco Use Types [...] is lower risk 8 12/12/2024 Data from: https://www.neighborhoodatlas.medicine.[facility]/. Last address used for calculation [address] [place] [address] 12/12/2024 Comments Unknown Sex and Gender Information Value Date Recorded Sex Assigned at Not on file Legal Sex Female 12:17 PM EDT Gender Identity Not on file Sexual Orientation Not on file documented as of this encounter Plan of Treatment Not on file documented as of this encounter Visit Diagnoses Not on filedocumented in this encounter Care Teams Commercial Fishing Vessel Operator Relationship Specialty Start Date End Date Monique Razo CNP [address] [place] [address] PCP - General Internal Medicine 12/17/24 documented as of this encounter
--- OUTSIDE RECORDS SUMMARY | 2025-07-11 22:42 | XMS_ITS | Encounter Summary ---
Author Organization [facility] Address [address] [place] [address] Care Team Providers Care Supervisor Labor Gang Name Role Phone Monique Razo MD Unavailable [phone] Monique Razo MD Unavailable [phone] Erich Garcia MD Primary Care Provider [phone] Jaime Woods DO Unavailable [phone] Encounter Details Date Type Department Care Team (Late st Contact Info) Description 10/28/2024 Telephone [facility] [address] [facility] [address] [place] [address] Pato Koehler DPM [address] [facility] [address] [place] [address] Social History Tobacco Use Types Packs/Day Years [...] documented in this encounter Plan of Treatment Upcoming Encounters Date Type Department Care Team (Late st Contact Info) Description 07/24/2025 3:40 PM EDT Office Visit [facility] [address] [place] [address] Pato Koehler DPM [address] [address] documented as of this encounter Visit Diagnoses Not on filedocumented in this encounter Care Teams Supervisor Labor Gang Relationship Specialty Start Date End Date Erich Garcia MD [address] [place] [address] PCP - General Family Medicine 07/24/24 Monique Razo MD [address] [place] [address] Referring Physician Family Medicine 03/29/24 Monique Razo MD [address] [place] [address] Referring Physician Family Medicine 07/24/24 Jaime Woods DO [address] [place] [address] Otolaryngology 07/24/24 documented as of this encounter
--- OUTSIDE RECORDS SUMMARY | 2025-07-11 22:42 | XMS_ITS | Encounter Summary ---
Author Organization [facility] Address [address] [place] [address] Care Team Providers Care Medical/Surgery Registered Nurse Name Role Phone DanniMonique Spencer BONILLA Primary Care Provider + Source Comments In the event this information is protected by the Federal Confidentiality of Alcohol and Drug AbusePatient Records regulations: The Federal rules restrict any use of the information to criminally investigate or prosecute any alcohol or drug abuse patient.[facility] Encounter Details Date Type Department Care Team (Late st Contact Info) Description 04/01/2025 Get Medical Advice Orthopaedics [address] [place] [address] Melvin June, DPM [address] [place], [place] [id number] Pain Social History Tobacco Use Types Packs/Day [...] is lower risk 8 12/12/2024 Data from: https://www.neighborhoodatlas.medicine.[facility]/. Last address used for calculation [address] [place] [address] 12/12/2024 Comments Unknown Sex and Gender Information Value Date Recorded Sex Assigned at Not on file Legal Sex Female 12:17 PM EDT Gender Identity Not on file Sexual Orientation Not on file documented as of this encounter Plan of Treatment Not on file documented as of this encounter Visit Diagnoses Not on filedocumented in this encounter Care Teams Medical/Surgery Registered Nurse Relationship Specialty Start Date End Date Monique Razo CNP [address] [place] [address] PCP - General Internal Medicine 12/17/24 documented as of this encounter
--- OUTSIDE RECORDS SUMMARY | 2025-07-11 22:42 | XMS_ITS | Encounter Summary ---
Author Organization [facility] Address [address] [place] [address] Care Team Providers Care Title Examiner Name Role Phone DanniMonique Spencer BONILLA Primary Care Provider + Source Comments In the event this information is protected by the Federal Confidentiality of Alcohol and Drug AbusePatient Records regulations: The Federal rules restrict any use of the information to criminally investigate or prosecute any alcohol or drug abuse patient.[facility] Encounter Details Date Type Department Care Team (Late st Contact Info) Description 02/04/2025 Get Medical Advice Orthopaedics [address] [place] [address] Melvin June, DPM [address] [place], [place] [phone] Swelling Social History Tobacco Use Types Packs/Day [...] is lower risk 8 12/12/2024 Data from: https://www.neighborhoodatlas.medicine.[facility]/. Last address used for calculation [address] [place] [address] 12/12/2024 Comments Unknown Sex and Gender Information Value Date Recorded Sex Assigned at Not on file Legal Sex Female 12:17 PM EDT Gender Identity Not on file Sexual Orientation Not on file documented as of this encounter Plan of Treatment Not on file documented as of this encounter Visit Diagnoses Not on filedocumented in this encounter Care Teams Title Examiner Relationship Specialty Start Date End Date Monique Razo CNP [address] [place] [address] PCP - General Internal Medicine 12/17/24 documented as of this encounter
--- OUTSIDE RECORDS SUMMARY | 2025-07-11 22:43 | XMS_ITS | Patient Health Record ---
Author Organization The [facility] in [place] Address [address] [place] [address] Care Team Providers Care Account Specialist Name Role Phone Monique Emmanuel Primary Care Provider [phone] Mo Garcia Unavailable [phone] Allergies Allergen (clinical drug ingredient) Drug/Non Drug Allergy documented on EMR Reaction Allergy Type Onset Date Status Substance with sulfonamide structure and antibacterial mechanism of action (substance) Sulfa Antibiotics rash/hives Drug Allergy Active Results Component Value Reference Range Notes GLYCOHEMOGLOBIN A1C Reviewed date:02/11/2025 04:35:45 PM Interpretation: Performing Lab: Notes/Report: [facility] , Glycohemoglobin A1C 6.9 4.5-6.2 % ADA RECOMMENDED LIMIT 4.0 - 6.0 ADA THERAPEUTIC TARGET < 7.0 ACTION SUGGESTED > 7.0 Estimated Average Glucose 151 Performing Lab: see note ML - [facility] LB IRON Reviewed date:02/11/2025 04:35:45 PM Interpretation: Performing Lab: Notes/Report: [facility] , Iron 39.0 50.0-170.0 ug/dL Performing Lab: see note ML - [facility] LB MR foot RT wo con Reviewed date:10/18/2024 01:38:15 PM Interpretation: Performing Lab: Notes/Report: Source Facility: [facility] [place] [address] [place] [address] Magnetic Resonance Report Signed Patient: NOEL PAUL MR#: [id number] : 1990 Acct:[id number] Age/Sex: 34 / F ADM Date: 10/16/24 Loc: MRI Attending Dr: TIARA AVELAR Ordering Physician: TIARA AVELAR Date of Service: 10/16/24 Procedure(s): MR foot RT wo con Accession Number(s): [id number] cc: TIARA AVELAR ; MONIQUE EMMANUEL [place] [id number] Patient Name: NOEL PAUL MRN: [facility]:[id number] date: 1990 Sex: F Assigned Patient Location: MRI Current Patient Location: MRI Accession/Order Number: [id number] Exam Date: 10/16/2024 09:54 Report Date: 10/18/2024 [...] appear intact on the edge of the tjscb-jy-jyrg of the sagittal images. There is no [...] and subtalar joint. Electronically authenticated by: LUPE DARDEN Date: 10/18/2024 11:04 Dictated By: Lupe Darden M.D. Signed By: 10/18/246 DD/ 03 TD/TT: Field Pipelines Supervisor: [place] [address] Magnetic Resonance Report Signed Patient: NOEL PAUL MR#: [id number] : 1990 Acct:[id number] Age/Sex: 34 / F ADM Date: 10/16/24 Loc: MRI Attending Dr: ROMELIA AVELAR Ordering Physician: TIARA AVELAR Date of Service: 10/16/24 Procedure(s): nika t RT wo con Accession Number(s): [id number] cc: TIARA AVELAR ; MONIQUE EMMANUEL [place] [id number] Patient Name: NOEL PAUL MRN: [id number]:[id number] date: 1990 Sex: F Assigned Patient Location: MRI Current Patient Loca tion: MRI Accession/Order Numb er: [id number] Exam Date: 09:54 Report Date: 10/18/2024 11:04 [...] appear intact on the edge of the shnbu-wy-bati of the sagittal images. There is no [...] and subtalar joint. Electronically authenticated by: LUPE DARDEN Date: 10/18/2024 11:04 Dictated By: Rogers Darden M.D. Signed By: 10/18/24 1106 DD/ 1104 TD/TT: Field Pipelines Supervisor: White Blood Cells Reviewed date:11/09/2024 03:15:37 PM [...] 4 See Below For Report Result 4 FLUE DUST LABORER Performing Lab: see note LC - [facility] [...] WILL FOLLOW Lower Respiratory Culture Performed at: [facility] Lower Respiratory Culture WILL FOLLOW Lower Respiratory Culture [address] [place] [phone] Lower Respiratory Culture WILL FOLLOW Lower Respiratory Culture Upholstery Handler: Kevin Fuller PhD, Phone: [phone] Lower Respiratory Culture WILL FOLLOW Performing Lab: see note LC - [facility] LB SEE REPORT - Manager Of Drilling Id information not found for OBX-specific reproducer legend BNP Reviewed date:11/06/2024 03:02:08 PM Interpretation: Performing Lab: Notes/Report: [facility] , NT Pro B Type Natriuretic Pept 78.0 <=450.0 pg/mL Performing Lab: see note - [facility] LB CBC AUTO DIFF Reviewed date:11/06/2024 03:02:08 PM Interpretation: Performing Lab: Notes/Report: [facility] , White Blood Count 15.3 4.0-11.0 [...] 3/uL Performing Lab: see note - [facility] LB PROF CHEM 8 (BAS METB) Reviewed date:11/06/2024 03:02:08 PM Interpretation: Performing Lab: Notes/Report: [facility] , Sodium 139 136-145 mmol/L Potassium [...] mg/dL Performing Lab: see note ML - [facility] LB XR chest 1V Reviewed date:11/06/2024 03:02:08 PM Interpretation: Performing Lab: Notes/Report: Source Facility: [facility] [place] [address] [place] [address] XRay Report Signed Patient: NOEL PAUL MR#: [id number] : 1990 Acct:[id number] Age/Sex: 34 / F ADM Date: 11/05/24 Loc: MS 202-[address]: Shannon Garcia M.D. Ordering Physician: Shannon Garcia M.D. Date of Service: 11/05/24 Procedure(s): XR chest 1V Accession Number(s): [id number] cc: MONIQUE EMMANUEL ; Shannon Garcia M.D. [place] [address] Patient Name: NOEL PAUL MRN: [id number] date: 1990 Sex: F Assigned Patient Location: MS Current Patient Location: MS Accession/Order Number: [id number] Exam Date: 11/05/2024 19:25 Report Date: 11/05/2024 [...] M.D. Signed By: 11/05/242208 DD/ 06 TD/TT: Field Pipelines Supervisor: [place] [address] XRay Report Signed Patient: NOEL PAUL MR#: [id number] : 1990 Acct:[id number] Age/Sex: 34 / F ADM Date: 11/05/24 Loc: MS 202-[address]: Debbi Garcia M.D. Ordering Physician: Shannon Garcia M.D. Date of Service: 11/05/24 Procedure(s): XR chest 1V Accession Number(s): [id number] cc: MONIQUE EMMANUEL ; Shannon Garcia M.D. The [place] [id number] Patient Name: NOEL PAUL MRN: [id number] date: 1990 Sex: F Assigned Patient Location: MS Current Patient Loca tion: MS Accession/Order Numb er: [id number] Exam Date: 19:25 Report Date: 11/05/2024 22:07 At the request of: SHANNON GARCIA Procedure: XR chest 1V EXAM: XR chest 1V HISTORY: Dyspnea COMPARISON: None. TECHNIQUE: Chest X-r ay AP, 1 view FINDINGS: Support devices: None. Lungs/pleura: There are low lung volumes. Diffuse bilateral perihilar airspace opacities and ski edge painter al markings, likely representing pulmonary edema. However, [...] M.D. Signed By: 11/05/242208 DD/ 06 TD/TT: Field Pipelines Supervisor: Venous Blood Gas Reviewed date:11/06/2024 11:41:03 AM Interpretation: Performing Lab: Notes/Report: [facility] , pH VBG 7.326 7.330-7.430 PCO2 VBG 51.8 40.0-52.0 mmHg Performing Lab: see note ML - [facility] LB CBC AUTO DIFF Reviewed date:11/06/2024 03:02:08 PM Interpretation: Performing Lab: Notes/Report: [facility] , White Blood Count 17.8 4.0-11.0 [...] 10 3/uL Performing Lab: see note - [facility] LB PROF 14(COMP METB) Reviewed date:11/19/2024 08:28:29 AM Interpretation: Performing Lab: Notes/Report: [facility] , Sodium 144 136-145 mmol/L Potassium [...] Ratio 0.7 Performing Lab: see note - [facility] LB Blood Culture 1 Reviewed date:11/26/2024 08:31:42 AM Interpretation: Performing Lab: Notes/Report: RIGHT AC IV START [facility] , Blood Culture 1 See Below For Report Blood Culture 1 NG5D NO GROWTH AT 5 DAYS. Performing Lab: see note - [facility] LB Blood Culture 2 Reviewed date:11/26/2024 08:31:42 AM Interpretation: Performing Lab: Notes/Report: LEFT AC [facility] , Blood Culture 2 See Below For Report Blood Culture 2 NG5D NO GROWTH AT 5 DAYS. Performing Lab: see note ML - [facility] LB SARS-CoV-2 Ag* Reviewed date:11/19/2024 08:28:29 AM Interpretation: Performing Lab: Notes/Report: [facility] , SARS-CoV-2 Ag NEGATIVE NEGATIVE This [...] Performing Lab: see note ML - [facility] LB CBC AUTO DIFF Reviewed date:11/26/2024 08:31:42 AM Interpretation: Performing Lab: Notes/Report: [facility] , White Blood Count 9.0 4.0-11.0 [...] 3/uL Performing Lab: see note ML - [facility] LB PROF 14(COMP METB) Reviewed date:11/26/2024 08:31:42 AM Interpretation: Performing Lab: Notes/Report: [facility] , Sodium 139 136-145 mmol/L Potassium [...] Performing Lab: see note ML - [facility] LB CT soft tissue neck w con Reviewed date:11/26/2024 08:24:16 AM Interpretation: Performing Lab: Notes/Report: Source Facility: [facility] [place] [address] [place] [address] CT Scan Report Signed Patient: NOEL PAUL MR#: [id number] : 1990 Acct:[id number] Age/Sex: 34 / F ADM Date: 11/20/24 Loc: ER Attending Dr: Ordering Physician: Mickie Quijano D.O. Date of Service: 11/20/24 Procedure(s): CT soft tissue neck w con Accession Number(s): [id number] cc: MONIQUE EMMANUEL [place] [address] Patient Name: NOEL PAUL MRN: [facility]:[id number] date: 1990 Sex: F Assigned Patient Location: ER Current Patient Location: ER Accession/Order Number: [id number] Exam Date: 11/20/2024 21:30 Report Date: 11/20/2024 23:30 At the request of: MICKIE QUIJANO Procedure: CT soft tissue neck w [...] M.D. Signed By: 11/20/242331 DD/ 29 TD/TT: Field Pipelines Supervisor: [place] [address] CT Scan Report Signed Patient: NOEL PAUL MR#: [id number] : 1990 Acct:[id number] Age/Sex: 34 / F ADM Date: 11/20/24 Loc: ER Attending Dr: Ordering Physician: Mickie Quijano D.O. Date of Service: 11/20/24 Procedure(s): CT sof t tissue neck w con Accession Number(s): [id number] cc: MONIQUE EMMANUEL [place] [id number] Patient Name: NOEL PAUL MRN: [id number] date: 1990 Sex: F Assigned Patient Location: ER Current Patient Loca tion: ER Accession/Order Numb er: [id number] Exam Date: 21:30 Report Date: 11/20/2024 23:30 [...] Dictated By: Rogers Gonzalez M.D. Signed By: 11/20/242331 DD/ 29 TD/TT: Field Pipelines Supervisor: XR ankle LT min 3V Reviewed date:01/21/2025 08:55:44 AM Interpretation: Performing Lab: Notes/Report: Source Facility: [place] [address] XRay Report Signed Patient: NOEL PAUL MR#: [id number] : 1990 Acct:[id number] Age/Sex: 34 / F ADM Date: 01/19/25 Loc: ER Attending Dr: Ordering Physician: Abdon Weber D.O. Date of Service: 01/19/25 Procedure(s): XR ankle LT min 3V Accession Number(s): [id number] cc: MONIQUE EMMANUEL ; Abdon Weber D.O. [place] [address] Patient Name: NOEL PUAL MRN: [id number]:[id number] date: 1990 Sex: F Assigned Patient Location: ER Current Patient Location: ER Accession/Order Number: [id number] Exam Date: 01/19/2025 12:45 Report Date: 01/19/2025 [...] Fermín Wilks M.D.01/19/2025 12:47 PM Dictation Location: [place] [address] Electronically authenticated by: [id number] Y Date: 01/19/2025 12:47 Dictated By: Fermín Wilks M.D. Signed By: 01/19/25 1249 DD/ 1247 TD/TT: Field Pipelines Supervisor: [place] [id number] XRay Report Signed Patient: NOEL PAUL MR#: [id number] : 1990 Acct:[id number] Age/Sex: 34 / F ADM Date: 01/19/25 Loc: ER Attending Dr: Ordering Physician: Abdon Weber D.O. Date of Service: 01/19/25 Procedure(s): XR ank le LT min 3V Accession Number(s): [id number] cc: MONIQUE EMMANUEL ; Abdon Weber D.O. [place] [address] Patient Name: NOEL PAUL MRN: [facility]:[id number] date: 1990 Sex: F Assigned Patient Location: ER Current Patient Loca tion: ER Accession/Order Numb er: [id number] Exam Date: 01/19/2025 12:45 Report Date: 01/19/2025 [...] Fermín Wilks M.D.01/19/2025 12:47 PM Dictation Location: [place] [address] Electronically authenticated by: [id number] Y Date: 01/19/2025 12:47 Dictated By: Fermín Wilks M.D. Signed By: 01/19/25 1249 DD/ 1247 TD/TT: Field Pipelines Supervisor: CT facial bones w con Reviewed date:11/19/2024 08:28:29 AM Interpretation: Performing Lab: Notes/Report: Source Facility: [place] [address] CT Scan Report Signed Patient: NOEL PAUL MR#: [id number] : 1990 Acct:[id number] Age/Sex: 34 / F ADM Date: 11/17/24 Loc: ER Attending Dr: Ordering Physician: Vilma Goncalves Date of Service: 11/17/24 Procedure(s): CT facial bones w con Accession Number(s): [id number] cc: MONIQUE EMMANUEL [place] [address] Patient Name: NOEL PAUL MRN: [id number]:[id number] date: 1990 Sex: F Assigned Patient Location: ER Current Patient Location: ER Accession/Order Number: [id number] Exam Date: 11/17/2024 16:00 Report Date: 11/17/2024 [...] M.D. Signed By: 11/17/241656 DD/ 53 TD/TT: Field Pipelines Supervisor: [place] [address] CT Scan Report Signed Patient: NOEL PAUL MR#: [id number] : 1990 Acct:[id number] Age/Sex: 34 / F ADM Date: 11/17/24 Loc: ER Attending Dr: Ordering Physician: Vilma Goncalves Date of Service: 11/17/24 Procedure(s): CT fac ial bones w con Accession Number(s): [id number] cc: MONIQUE EMMANUEL [place] [address] Patient Name: NOEL PAUL MRN: [facility]:[id number] date: 1990 Sex: F Assigned Patient Location: ER Current Patient Loca tion: ER Accession/Order Numb er: [id number] Exam Date: 16:00 Report Date: 11/17/2024 16:54 [...] M.D. Signed By: 11/17/241656 DD/ 53 TD/TT: Field Pipelines Supervisor: CBC AUTO DIFF Reviewed date:11/19/2024 08:28:29 AM Interpretation: Performing Lab: Notes/Report: [facility] , White Blood Count 6.0 4.0-11.0 [...] 3/uL Performing Lab: see note ML - [facility] PROF CHEM 8 (BAS METB) Reviewed date:11/06/2024 03:02:08 PM Interpretation: Performing Lab: Notes/Report: [facility] , Sodium 141 136-145 mmol/L Potassium [...] mg/dL Performing Lab: see note ML - [facility] HCG Qualitative* Reviewed date:11/05/2024 12:33:13 PM Interpretation: Performing Lab: Notes/Report: [facility] , HCG Qualitative NEGATIVE NEGATIVE Performing Lab: see note - [facility] LB Venous Blood Gas Reviewed date:11/06/2024 11:41:03 AM Interpretation: Performing Lab: Notes/Report: [facility] , pH VBG 7.387 7.330-7.430 PCO2 VBG 44.8 40.0-52.0 mmHg Performing Lab: see note ML - [facility] LB CBC AUTO DIFF Reviewed date:11/05/2024 12:21:30 PM Interpretation: Performing Lab: Notes/Report: [facility] , White Blood Count 11.8 4.0-11.0 [...] Performing Lab: see note ML - [facility] LB ECG 12 lead Reviewed date:10/29/2024 12:06:57 PM Interpretation: Performing Lab: Notes/Report: Source Facility: [facility] [place] [address] [place] [address] Electrocardiograph Report Signed Patient: NOEL PAUL MR#: [id number] : 1990 Acct:[id number] Age/Sex: 34 / F ADM Date: 10/26/24 Loc: PST Attending Dr: Gaurav Snyder M.D. Ordering Physician: Gaurav Snyder M.D. Date of Service: 10/26/24 Procedure(s): ECG 12 lead Accession Number(s): [id number] cc: [facility] Test Date: 2024-10-26 Pat Name: NOEL PAUL Department: Room: - Gender: Female Clinical Staff Rn: : 1990 Requested By: Gaurav Snyder Order Number: [id number] Reading MD: VAIBHAV MORENO Measurements Intervals [place] Rate: 83 P: 52 OK: 180 QRS: 29 QRSD: 88 T: 19 QT: 333 QTc: 392 Interpretive Statements SINUS RHYTHM Compared to ECG 09/13/2017 01:30:56 No significant changes Electronically Signed On 10-28-2024 7:34:59 EST by VAIBHAV MORENO Dictated By: Vaibhav Moreno D.O. Signed By: 10/28/24 0735 DD/ 1047 TD/TT: Field Pipelines Supervisor: [place] [address] Electrocardiograph Report Signed Patient: NOEL PAUL MR#: [id number] : 1990 Acct:[id number] Age/Sex: 34 / F ADM Date: 10/26/24 Loc: PST Attending Dr: Gaurav Snyder M.D. Ordering Physician: Gaurav Snyder M.D. Date of Service: 10/26/24 Procedure(s): ECG 12 lead Accession Number(s): [id number] cc: [facility] Test Date: 2024-10-26 Pat Name: NOEL PAUL Department: 43 Room: - Gender: Female Clinical Staff Rn: : 1990 Requ ested By: Gaurav Snyder Order Number: [id number] Reading MD: VAIBHAV MORENO Measurements Intervals [place] Rate: 83 P: 52 OK: 180 QRS: 29 QRSD: 88 T: 19 QT: 333 QTc: 392 Interpretive Statements SINUS RHYTHM Compared to ECG 09/13/2017 01:30:56 No significant changes Electronically Danae d On 10-28-2024 7:34:59 EST by VAIBHAV MORENO Dictated By: Vaibhav Moreno D.O. Signed By: 10/28/24 0735 DD/ 1047 TD/TT: Field Pipelines Supervisor: PROF INGE Haas ([facility]) Reviewed date:10/29/2024 12:06:57 PM Interpretation: Performing Lab: Notes/Report: [facility] , Sodium 139 136-145 mmol/L Potassium [...] 9.1 8.5-10.1 mg/dL Performing Lab: see note ML - [facility] LB CBC AUTO DIFF Reviewed date:10/29/2024 12:06:57 PM Interpretation: Performing Lab: Notes/Report: [facility] , White Blood Count 11.1 4.0-11.0 [...] 3/uL Performing Lab: see note ML - [facility] LB Erythrocyte Sedimentation Ra te Reviewed date:10/23/2024 09:49:43 AM Interpretation: Performing Lab: Notes/Report: [facility] , Erythrocyte Sedimentation Rate 82 <=20 mm/hr Performing Lab: see note [facility] PROF CHEM 8 (BAS METB) Reviewed date:10/23/2024 09:49:43 AM Interpretation: Performing Lab: Notes/Report: [facility] , Sodium 139 136-145 mmol/L Potassium [...] mg/dL Performing Lab: see note ML - [facility] LB CRP Reviewed date:10/23/2024 09:49:43 AM Interpretation: Performing Lab: Notes/Report: [facility] , C Reactive Protein 3.76 <=0.50 mg/dL Performing Lab: see note - [facility] LB CBC AUTO DIFF Reviewed date:10/23/2024 09:49:43 AM Interpretation: Performing Lab: Notes/Report: [facility] , White Blood Count 13.5 4.0-11.0 [...] Performing Lab: see note ML - [facility] LB PROF CHEM 8 (BAS METB) Reviewed date:08/17/2024 08:31:31 AM Interpretation: Performing Lab: Notes/Report: [facility] , Sodium 140 136-145 mmol/L Potassium 3.7 3.5-5.1 mmol/L Chloride 103 98-107 mmol/L Carbon Dioxide 30.1 21.0-32.0 mmol/L Anion Gap 10.6 Glucose 108 74-106 mg/dL Blood Urea Nitrogen 16.0 7.0-18.0 mg/dL Creatinine 0.71 0.55-1.02 mg/dL Estimated GFR ( Rasheeda >60 >=60 Estimated GFR (Non- Yamel >60 >=60 BUN Creatinine Ratio 22.5 Calcium 9.3 8.5-10.1 mg/dL Performing Lab: see note ML - [facility] LB CBC AUTO DIFF Reviewed date:08/17/2024 08:31:31 AM Interpretation: Performing Lab: Notes/Report: [facility] , White Blood Count 11.1 4.0-11.0 [...] Performing Lab: see note ML - [facility] LB SARS-CoV-2 Ag* Reviewed date:07/12/2024 08:00:26 AM Interpretation: Performing Lab: Notes/Report: [facility] , SARS-CoV-2 Ag NEGATIVE NEGATIVE This [...] Performing Lab: see note ML - [facility] LB GLYCOHEMOGLOBIN A1C Reviewed date:10/15/2024 09:36:10 AM Interpretation: Performing Lab: Notes/Report: [facility] , Glycohemoglobin A1C 6.6 4.5-6.2 % ADA RECOMMENDED LIMIT 4.0 - 6.0 ADA THERAPEUTIC TARGET < 7.0 ACTION SUGGESTED > 7.0 Estimated Average Glucose 143 Performing Lab: see note ML - [facility] CBC AUTO DIFF Reviewed date:02/11/2025 04:35:45 PM Interpretation: Performing Lab: Notes/Report: [facility] , White Blood Count 10.9 4.0-11.0 [...] 10 3/uL Performing Lab: see note - [facility] LB PROF 14(COMP METB) Reviewed date:03/06/2025 11:14:33 AM Interpretation: Performing Lab: Notes/Report: [facility] , Sodium 141 136-145 mmol/L Potassium [...] 0.7 Performing Lab: see note ML - [facility] LB LACTATE or LACTIC ACID Reviewed date:03/06/2025 11:14:33 AM Interpretation: Performing Lab: Notes/Report: [facility] , Lactate/Lactic Acid 1.0 0.4-2.0 mmol/L Performing Lab: see note [facility] LB CBC AUTO DIFF Reviewed date:03/06/2025 11:14:33 AM Interpretation: Performing Lab: Notes/Report: [facility] , White Blood Count 12.3 4.0-11.0 [...] Performing Lab: see note ML - [facility] LB LIPASE Reviewed date:03/06/2025 11:14:33 AM Interpretation: Performing Lab: Notes/Report: [facility] , Lipase 34.0 16.0-77.0 U/L Performing Lab: see note ML - [facility] LB XR ankle RT min 3V Reviewed date:06/14/2025 10:35:52 AM Interpretation: Performing Lab: Notes/Report: Source Facility: [facility] [place] [address] [place] [address] XRay Report Signed Patient: NOEL PAUL MR#: [id number] : 1990 Acct:[id number] Age/Sex: 34 / F ADM Date: 06/14/25 Loc: RAD Attending Dr: Enoch Burdick D.P.M. Ordering Physician: Enoch Burdick D.P.M. Date of Service: 06/14/25 Procedure(s): XR ankle RT min 3V Accession Number(s): [id number] cc: MONIQUE EMMANUEL ; Enoch Burdick D.P.M. [place] [address] Patient Name: NOEL PAUL MRN: [id number]:[id number] date: 1990 Sex: F Assigned Patient Location: RAD Current Patient Location: RAD Accession/Order Number: [id number] Exam Date: 06/14/2025 10:19 Report Date: 06/14/2025 10:27 At the request of: ENOCH BURDICK DPM Procedure: XR ankle RT min 3V RIGHT ANKLE - 3 views CLINICAL DATA: Right ankle pain. Previous surgeries in 2023 and December 2024 COMPARISON: 03/13/2007 AND MRI RIGHT FOOT 10/16/2024 Weightbearing AP, lateral and oblique views were obtained. There is no acute fracture or dislocation. There is calcification at the distal inner osseous membrane adjacent to the tibia. The talar dome is intact. Calcaneal spurs are visualized. Medial soft tissue swelling is noted. XR/XR ankle RT min 3V IMPRESSION: CHRONIC CHANGES. NO ACUTE BONY FINDINGS. Impression dictated by: Leisa Adames M.D. 06/14/2025 10:27 AM Dictation Location: [place] [address] Electronically authenticated by: [id number] Y Date: 06/14/2025 10:27 Dictated By: Leisa Adames M.D. Signed By: 06/14/25 1030 DD/ 1027 TD/TT: Field Pipelines Supervisor: [place] [address] XRay Report Signed Patient: NOEL PAUL MR#: [id number] : 1990 Acct:[id number] Age/Sex: 34 / F ADM Date: 06/14/25 Loc: RAD Attending Dr: Enoch Burdick D.P.M. Ordering Physician: Enoch Burdick D.P.M. Date of Service: 06/14/25 Procedure(s): XR ank le RT min 3V Accession Number(s): [id number] cc: MONIQUE EMMANUEL ; Enoch Burdick D.P.M. [place] [address] Patient Name: NOEL PAUL MRN: [facility]:[id number] date: 1990 Sex: F Assigned Patient Location: RAD Current Patient Loca tion: RAD Accession/Order Numb er: [id number] Exam Date: 06/14/2025 10:19 Report Date: 06/14/2025 10:27 At the request of: ENOCH BURDICK DPMadi Procedure: XR ankle RT min 3V RIGHT ANKLE - 3 views CLINICAL DATA: Right ankle pain. Previous surgeries in 2023 and December 2024 COMPARISON: 7 AND MRI RIGHT FOOT 10/16/2024 Weightbearing AP, la teral and oblique views were obtained. There is no acute fracture or dislocation. There is calcification at the distal inner osseous membrane adj acent to the tibia. The talar dome is intact. Calcaneal spurs are visualized . Medial soft tissue swelling is noted. X R/XR ankle RT min 3V IMPRESSION: CHRONIC CHANGES. NO ACUTE BONY FINDINGS. Impression dictated by: Leisa Adames M.D. 06/14/2025 10:27 AM Dictation Location: [place] [address] Electronically authenticated by: [id number] Y Date: 06/14/2025 10:27 Dictated By: Leisa Adames M.D. Signed By: 06/14/25 1030 DD/ 1027 TD/TT: Field Pipelines Supervisor: ALMA OVIEDO HCG Reviewed date:03/06/2025 11:14:33 AM Interpretation: Performing Lab: Notes/Report: [facility] , HCG Quantitative <1 5-50 0.2-1 WEEK 50-500 1-2 WEEKS 100-5,000 2-3 WEEKS 500-10,000 3-4 WEEKS 1,000-50,000 4-5 WEEKS 10,000-100,000 5-6 WEEKS 15,000-200,000 6-8 WEEKS 10,000-100,000 2-3 MONTHS Performing Lab: see note ML - [facility] LB Reason For Referral Diagnosis 1 External otitis of l eft ear (H60.92) Referral Organization [facility] Referring Provider First Name Monique Referring Provider Last Name Danni [facility] Referred Provider Hawk Brito Referred Provider Specialty Otolaryngolo gy Referral Priority Routine Reason sleep study Diagnosis 1 Snoring (R06.83) Referral Organization [facility] Referring Provider First Name Monique Referring Provider Last Name Danni Referring Provider [facility] [place] Referred Provider [facility] Referred Provider [facility] Referral Priority Routine Medications Medication SIG (Take, Route, Frequency, Duration) Notes Start Date End Date Status Ferrous Sulfate 325 (65 Fe) MG 1 tablet Orally Three times a Week for 30 days Active glipiZIDE 5 MG one tablet po BID fo r 90 days Active metFORMIN HCl 500 MG TAKE 1 TABLET BY MO [facility] TWICE A DAY WITH A MEAL FOR 30 DAYS for 90 Active Mounjaro 2.5 MG/0.5ML as directed Subcutaneous weekly for 28 days call for next dose 06/20/2025 Active Natural Vitamin D-3 125 MCG (5000 UT) TAKE 1 TABLET BY MOUTH EVERY DAY FOR 30 DAYS for 90 Active Omeprazole 20 MG TAKE 1 CAPSULE BY MOUTH EVERY DAY for 90 Active OneTouch Delica Plus [id number] - USE TO TEST BLOOD SUGAR ONCE EVERY MORNING for 90 Active OneTouch Ultra - USE 1 STRIP TO TEST FASTING BLOOD SUGAR ONCE EVERY MORNING for 90 Active Dexcom G7 Marketing Secretary - USE DIRECTED for 30 Active traZODone HCl 100 MG TAKE 1 TABLET BY MO [facility] EVERYDAY AT BEDTIME NEEDED for 90 days Active Dexcom G7 Sensor - as directed for 28 days 09/20/2024 Active Escitalopram Oxalate 20 MG 1/2 tablet for the first week then 1 tablet Orally Once a day for 90 days Active Immunizations Vaccine Route Administration Date Status [...] Problem Status W/U Status Risk Notes Problem 670299543 Type 2 diabetes mellitus with hyperglycemia (E11.65) Active confirmed Problem 619662579 Morbid (severe) obesity due to excess calories (E66.01) Active confirmed Problem 521275565 Gout, unspecified (M10.9) Active confirmed Problem 460676326 Contracture, unspecified foot (M24.576) Active confirmed Problem 825191500501909 Posterior tibial tendinitis, left leg (M76.822) Active confirmed Problem 28526546693203156 Other congenit al malformations of lower limb(s), 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 confirmed Problem Gastroesophageal reflux disease (247640301) GERD (gastroesophagea l reflux disease) (K21.9) Active confirmed Problem Anxiety (80531333) Anxiety (F41.9) Active confi rmed Problem Obstructive sleep apnea syndrome (29744379) AQUILES (obstructive sleep apnea) (G47.33) Active confirmed Problem Insomnia (286907690) Insomnia (G47.00) Active confirmed Problem Otitis externa of left ear (0163869505316854) External otitis of left ear (H60.92) Active confirmed Problem Sialoadenitis (36477140) Salivary gland adenitis (K11.20) Active confirmed Problem Morbid obesity (388239555) Class 3 obesity (E66.01) Active confirmed Vital Signs Temperature 98.1 degrees Fahrenheit 11/22/2024 Oximetry 96 % 11/08/2024 Blood pressure diastolic 78 mm Hg 07/02/2025 Height 61 in 07/02/2025 Blood pressure systolic 132 mm Hg 07/02/2025 Weight 340.6 lbs 07/02/2025 BMI 64.35 kg/m2 07/02/2025 Encounters Encounter Location Date Provider Diagnosis [address] [place] [address] 06/20/2025 Monique Emmanuel Type 2 diabetes mellitus with hyperglycemia E11.65 ; Class 3 obesity E66.01 and AQUILES (obstructive sleep apnea) G47.33 [address] [place] [address] 06/04/2025 Monique Emmanuel Class 3 obesity E66. 01 [address] [place] [address] 07/02/2025 Monique Emmanuel Class 3 obesity E66. 01 and Type 2 diabetes mellitus with hyperglycemia E11.[address] [address] 08/29/2024 Monique Emmanuel Pre-operative cleara nce Z01.[address] [address] 11/08/2024 Monique Emmanuel Snoring R06.83 and Hypoxia R09.[address] [address] 11/22/2024 Mo Hoy Salivary gland adeni tis K11.[address] [address] 12/06/2024 Monique Emmanuel Type 2 diabetes mellitus with hyperglycemia E11.65 and Fatigue R53.83 [address] [place] [address] 05/09/2025 Monique Emmanuel Class 3 obesity E66. [address] [address] 10/16/2024 Monique Emmanuel Class 3 obesity E66. 01 and Type 2 diabetes mellitus with hyperglycemia E11.65 [address] [place] [address] 07/11/2024 Monique mEmanuel Viral illness B34.[address] [address] 02/06/2025 Monique Emmanuel Fatigue R53.83 [facility] [address] [place] [facility] [place] [address] 02/11/2025 Monique Emmanuel Low iron E61.1 [facility] [address] [place] [facility] [address] 04/09/2025 Monique Emmanuel Class 3 obesity E66. 01 [facility] [address] [place] [facility] [place] [address] 06/17/2025 Monique Emmanuel [facility] [address] [place] [facility] [place] [address] 06/17/2025 Monique Emmanuel Class 3 obesity E66. 01 [facility] [address] [place] [facility] [place] [place] [address] 09/25/2024 Monique Emmanuel [facility] [address] [place] [facility] [place] [address] 10/09/2024 Monique Emmanuel Type 2 diabetes mellitus with hyperglycemia E11.65 [facility] [address] [place] [place] [address] 10/15/2024 Monique Emmanuel [facility] [address] [place] [facility] [place] [address] 11/06/2024 Mo Hoy [facility] [address] [place] [address] 11/08/2024 Monique Emmanuel Pneumonia J18.9 [facility] [address] [place] [place] [address] 01/14/2025 Monique Emmanuel Type 2 diabetes mellitus with hyperglycemia E11.65 [facility] [address] [place] [place] [address] 07/11/2024 Monique Emmanuel [facility] [address] [place] [facility] [address] 07/12/2024 Monique Emmanuel [facility] [address] [place] [facility] [address] 07/24/2024 Monique Emmanuel External otitis of l eft ear H60.92 [facility] [address] [place] [address] 09/20/2024 Monique Emmanuel Type 2 diabetes mellitus with hyperglycemia E11.65 Assessments Encounter Date Diagnosis (ICD Code) Assessment Notes Treatment Notes Treatment Clinical Notes Section Notes 10/16/2024 Class 3 obesity (ICD-10 - E66.01) work on diet fu one month CSA signed OARRS reviewed has taken in past 07/11/2024 Viral illness (ICD-10 - B34.9) COVID [...] 04/09/2025 Class 3 obesity (ICD-10 - E66.01) 06/17/2025 Class 3 obesity (ICD-10 - E66.01) 07/02/2025 Class 3 obesity (ICD-10 - E66.01) continue mounalex fu 3 m work on diet 06/20/2025 Type 2 diabetes mellitus with hyperglycemia (ICD-10 - E11.65) 06/20/2025 Class 3 obesity (ICD-10 - E66.01) work on diet Mounjaro? 10/16/2024 Type 2 diabetes mellitus with hyperglycemia (ICD-10 - E11.65) reviewed labs repeat A1c 3m continue monitor 07/02/2025 Type 2 diabetes mellitus with hyperglycemia (ICD-10 - E11.65) continue mounjaro fu 3m Patient educated on Diabetic diet... Reviewed Hypoglycemia / Hyperglycemia action plan: Instructed to call office if blood sugar above 350 or below 65 consecutively. Reviewed with patient the halfway effects of Diabetes Mellitus on the body [...] or testing, please call for dosing instructions. 06/20/2025 AQUILES (obstructive sleep apnea) (ICD-10 - G47.33) MOunjaro? 06/20/2025 Other fu cardiology a s scheduled Plan Of Treatment Pending Test Test Name Order Date CMP (COMPLETE METABOLIC PANEL) 3 HEMOGLOBIN A1C (GLYCO) 11/15/2023 IRON, TOTAL 11/15/2023 LIPID PANEL (CHOL/TRIG/HDL/LDL) 11/15/20 23 CBC WITH DIFF 11/15/2023 VITAMIN D, 25 LEVEL (TOTAL) 11/15/2023 Insulin Level 11/15/2023 CBC W/AUTO DIFF 02/06/2025 Covid-19 PCR (CVDTBH) 07/11/2024 GLYCOHEMOGLOBIN A1C 01/14/2025 THYROID PANEL (T4/TSH/FREE T3) 3 XR chest 2V 11/08/2024 Next Appt Details Provider Name:Monique rutledge, 07/22/2025 04:00:00 PM, [address] [facility] [place], [address], Provider Name:Monique rutledge, 10/07/2025 04:15:00 PM, [address] [facility] [place], [address], Insurance Providers Payer Name Payer Address Payer Phone Subscriber Number Group Number Insured Name Patient Relationship to Insured Coverage Start Date Coverage End Date [employer] PPO PLUS LOCAL PLAN [address] [place] [address] [id number] Lonnie Paul Spouse - patient is the spouse of the insured 3 Medical (General) History Medical History History ICD Code Vitamin D deficiency E55.9 Hypertriglyceridemia E78.1 Hypothyroid E03.9 Diabetes type 2, controlled E11.9 GERD (gastroesophageal reflux disease) K 21.9 Anxiety F41.9 Surgical History Surgery Date(Month/Year) CHOLECYSTECTOMY left foot kidner procedure Rt shoulder scope with partial removal o f bone Rt foot kidner procedure 09/20 Lt foot modified Kidner procedure w/ pos terior splint 05/16/2024 Steroid injection in feet Hospitalization History Reason Date(Month/Year) Gallbladder
--- OUTSIDE RECORDS SUMMARY | 2025-07-11 22:43 | XMS_ITS | Clinical Summary ---
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 4 Active escitalopram (Lexapro) [...] patient's age to complete this topic Insurance [facility] OOS
--- OUTSIDE RECORDS SUMMARY | 2025-07-11 22:43 | XMS_ITS | Patient Health Record ---
Author Organization [facility] Address [address] [address], [place] [address] Care Team Providers Care Quilting Machine Operator Name Role Phone Monique Razo CNP Primary Care Provider Unavail able Rafy Burdick Unavailable [phone] Allergies Allergen (clinical drug ingredient) Drug/Non Drug Allergy documented on EMR Reaction Allergy Type Onset Date Status Substance with sulfonamide structure and antibacterial mechanism of action (substance) Sulfa Antibiotics hives Drug Allergy Active Reason For Referral No Information Medications Medication SIG (Take, Route, Frequency, Duration) Notes Start Date End Date Status Lexapro Active glipiZIDE 5 MG Tablet Oral; Duration: 90 Days Active traZODone HCl 100 MG Tablet Oral; Duration: 90 Days Acti ve metFORMIN HCl 500 MG Tablet Oral; Duration: 90 Days Acti ve Social History Sex Assigned At : Social History Observation Description Sex Assigned At Female Section Notes: Patient is a nonsmoker. No alcohol use. Encounters Encounter Location Date Provider Diagnosis [facility] [address] [address], [place] [address] 06/14/2025 Rafy Burdick Posterior tibial tendon dysfunction, right M76.821 Assessments Encounter Date Diagnosis (ICD Code) Assessment Notes Treatment Notes Treatment Clinical Notes Section Notes 06/14/2025 Posterior tibial tendon dysfunction, right (ICD-10 - M76.821) Persistent pain, swelling, and weakness in the foot and ankle following two surgeries on the posterior tibial tendon. Recovery has been slower than expected compared to previous contralateral surgery. Patient has tried braces, casts, and nightly ibuprofen PM for pain with limited improvement. Physical therapy was previously stopped due to aggravation of symptoms. MRI performed at [facility] due to lack of improvement. Patient is frustrated with slow progress and concerned about risk of further tendon injury or need for additional surgery. - Prescribed topical medication (Buderer) to be applied at least twice daily, up to four times daily. - Restart physical therapy with pool therapy, ultrasound, and electrical stimulation. - Recommended use of compression stockings in the morning. - Advised wearing ASO brace whenever not in bed or resting. - Monitor for improvement over the next 6 to 8 weeks. Plan Of Treatment Next Appt Details Provider Name:Rafy mitchell, 08/19/2025 09:00:00 AM, [address] [facility], [facility] [address], [place], [address], Insurance Providers Payer Name Payer Address Payer Phone Subscriber Number Group Number Insured Name Patient Relationship to Insured Coverage Start Date Coverage End Date [facility] [address] [place] [address] [id number] Lonnie Paul Spouse - patient is the spouse of the insured Medical (General) History Medical History History ICD Code Anemia Diabetes GERD Surgical History Surgery Date(Month/Year) Right Accessory navicular bone removed t hen revision surgery on it Left Foot Accessory navicular bone remov al Gallbladder Shoulder Surgery Right Accessory navicular bone removed t hen revision surgery on it Left Foot Accessory navicular bone remov al Gallbladder Shoulder Surgery Left excision of accessory navicular [address] Koehler Right excision of accessory navicular No vember [address] Koehler 09/2024 Right excision of accessory navicular Fe bruary [address] June 12/2024
--- OUTSIDE RECORDS SUMMARY | 2025-07-11 22:43 | XMS_ITS | Clinical Summary ---
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 4 Active DEXCOM G7 [...] Care Team Description 06/11/2025 9:45 AM EDT [facility] [address] [place] [address] Melvin June DPM S/P foot surgery, right (Primary Dx); Chronic pain of right ankle 06/07/2025 Telephone [facility] [place] [address] [place] [address] Melvin June DPM Appointment 06/06/2025 7:57 AM EDT - 06/06/2025 11:59 PM EDT Hospital Encounter Radiology MRI [address] [place] [address] Chronic pain of right ankle [M25.571, G89.29] Discharge Disposition: Home 06/05/2025 Patient Msg Radiology MRI [address] [place] [place] [address] Provider, [facility] MRI APT 05/30/2025 Travel 05/17/[address] [facility] [place] [address] Melvin June DPM 05/17/2025 Get Medical Advice [facility] [address] [place] [place] [address] Melvin June, SHITAL Boot 05/16/2025 2:30 PM EDT Office Visit [facility] [address] [facility] [place] [address] Melvin June, DPM S/P foot surgery, right (Primary Dx); Chronic pain of right ankle 05/16/2025 2:00 PM EDT Office Visit [facility] [address] [facility] [place] [address] Joi, Cast Tech S/P foot surgery, right (Primary Dx) 05/16/2025 Travel 05/12/2025 Get Medical Advice [facility] [address] [place] [address] Melvin June, SHITAL Still having pain 05/06/2025 4:00 PM EDT Office Visit Orth[facility] [address] [place] [address] Joi, Cast Tech S/P foot surgery, right (Primary Dx) 05/03/2025 Orders Only [facility] [address] [place] [address] Melvin June, DPM S/P foot surgery, right (Primary Dx) 05/03/2025 Get Medical Advice [facility] [address] [place] [address] Melvin June, DPM Cast 04/25/2025 3:00 PM EDT Office Visit [facility] [address] [place] [address] Joi, Cast Tech S/P foot surgery, right (Primary Dx) 04/25/2025 2:00 PM EDT Office Visit [facility] [address] [place] [address] Melvin June, DPM Sinus tarsitis, right (Primary Dx) 04/25/2025 Travel 04/16/2025 1:45 PM EDT [facility] [address] [place] [address] Melvin June DPM S/P foot surgery, right (Primary Dx); Accessory navicular bone of right foot; Pain in right foot 04/16/2025 Patient Msg Orthopa[facility] [address] [place] [address] Melvin June DPM podiatry appointment 04/13/2025 Travel 04/12/2025 Get Medical Advice [facility] [address] [place] [address] Melvin June, SHITAL Pain not going away from Last 3 Months Social History Tobacco [...] is lower risk 8 12/12/2024 Data from: https://www.neighborhoodatlas.[facility].edu/. Last address used for calculation [address] [place] [address] 12/12/2024 Comments Unknown Sex and Gender Information [...] - PCV) 2007 Cervical Cancer Screening 2009 HPV Vaccine (1 - 3-dose SCDM series) 2015 Influenza Vaccine (#1) 2025 Hepatitis B Vaccine Completed 12/20/2024, 08/16/2024, 07/19/2002 Medical Devices Implanted Type Area Absence Management Consultant Device Identifier Shelf Expiration Date Model / Serial / Lot [place] Suturetak Fiberwire 1 .5 [place] 2 [employer]posite 26.2mm Suture - [id number] Implanted:Qty: 1 on 12/31/2024 at [facility] Suture [place] Right: Bone - Foot [employer] 09/27/2026 [id number] / / [id number] Procedures Procedure Name Priority Date/Time Associated Diagnosis Comments MRI ANKLE WO IVCON RIGHT Routine 06/06/2025 8:43 AM EDT Chronic pain of right ankle [id number] Routine 04/25/2025 2:11 PM EDT Sinus tarsitis, [...] the deltoid and spring ligaments as described. Middle Stitcher: HERNÁN Transcribe Date/Time: Jun 06 2025 11:37A Dictated by : RADHA TYSON MD This examination was interpreted and the report reviewed and electronically signed by: KATIANA FLORES MD on Jun 06 2025 2:13PM EST Narrative 06/06/2025 2:16 PM EDT * * *Final Report* * * DATE OF EXAM: Jun 06 2025 8:43AM [facility] 0164 - MRI ANKLE WO IVCON [...] No significant additional findings. Procedure Note Provider, [facility] [place] - 06/06/2025 * * *Final Report* * * DATE OF EXAM: Jun 06 2025 8:43AM [facility] 0164 - MRI ANKLE WO IVCON [...] the deltoid and spring ligaments as described. Middle Stitcher: HERNÁN Transcribe Date/Time: Jun 06 2025 11:37A Dictated by : RADHA TYSON MD This examination was interpreted and the report reviewed and electronically signed by: KATIANA FLORES MD on Jun 06 2025 2:13PM EST us Melvin June DPM MRI-PAMA Final Result * [id number] (04/25/2025 2:11 PM EDT) Narrative Melvin June [...] these instructions. Informed Consent Consent Obtained: Verbal [place] Protocol A moment to CARE was completed. [...] nurse for hospitalized patients) applicable. Melvin June [facility] PROCEDURE Final Result from Last 3 Months Insurance BLUE CARD PPO OOS AETNA Care Teams Jetting Machine Operator Relationship Specialty Start Date End Date Monique Razo, MOTORS ASSEMBLER [address] [place], [place] [id number] PCP - General Internal Medicine 12/17/24
--- OUTSIDE RECORDS SUMMARY | 2025-07-11 22:43 | XMS_ITS | Patient Health Record ---
Author Organization [facility] Address [address] [place] [address] Care Team Providers Care Rod Buster Helper Name Role Phone Gaurav Snyder Unavailable [phone] Gloria Villafana Unavailable Allergies Allergen (clinical drug ingredient) Drug/Non Drug Allergy documented on EMR Reaction Allergy Type Onset Date Status SULFA (uncoded) hives Allergy Acti ve Results Component Value Reference Range Notes HGB A1C Reviewed date:02/07/2025 11:57:30 AM Interpretation: Performing Lab: Notes/Report: Hgb A1c 6.6 Chem 8, Venous Reviewed date:12/04/2024 02:43:47 PM Interpretation: Performing Lab: Notes/Report: Hemoglobin Reviewed date:12/04/2024 02:43:30 PM Interpretation: Performing Lab: Notes/Report: Surgery Scheduling Reviewed date:12/04/2024 02:43:39 PM Interpretation: Performing Lab: Notes/Report: Social Sec number: [id number] Primary Insurance Company: SHARIFA CHILDRESS Surgeon/Assist: OLIVER Surgery Location: [facility] Surgery Date & Time: 11/05/24 Surgery End Time: ONE HOUR Procedure: RIGHT SHOULDER ARTHR OSCOPIC DISTAL CLAVICLE EXCISION, POSSIBLE OPEN, Diagnosis: RIGHT AC JOINT ARTHRITIS Admission Type: OUTPATIENT Anesthesia Type/CPNB: GENERAL Post-op Appointment Date: 1 WEEK Latex Allergy NO Lab Location: [facility] Golf Ball Cover Treater: LIBERTY CBC with diff, BMP, EKG Reviewed date:12/04/2024 02:43:58 PM Interpretation: Performing Lab: Notes/Report: SCC- PT/OT EVAL AND TREAT 3X /WEEK FOR 6 WEEKS Reviewed date:12/04/2024 03:27:33 PM Interpretation: Performing Lab: Notes/Report: Reason For Referral Reason APPROVED ........... .....PLEASE OBTAIN AUTHORIZATION FOR RIGHT SHOULDER ARTHROSCOPIC DISTAL CLAVICLE EXCISION, POSSIBLE OPEN Jose Martin 10/15/2024 11:33:47 AM >C[place] [address] [place] [address] Diagnosis 1 Arthritis of right a cromioclavicular joint (M19.011) Referral Organization [facility] Office Referring Provider First Name Gaurav Referring Provider Last Name Lillian Referring Provider Speciality Orthopedic Surgery Referred Organization [facility] Referred Address [address] [facility],[address], General Notes Vilma Meléndez 024 11:19:13 AM >NEED SX CODE PLEASEMario Chad 10/15/2024 11:33:47 AM >Cpt [place] [address] [place] [address], Vilma Meléndez 10/18/2024 11:53:48 AM >APPROVED PER [employer] AUTH #[id number] VALID 10/18/2024-01/18/2025 COPY IN CHART MA NOTIFIED REF FAXED TO [facility] Priority Routine Medications Medication SIG (Take, [...] Problem Status W/U Status Risk Notes Problem [id number] Primary osteoarthritis of right shoulder (M19.011) Active confirmed Problem 653146691 Encounter for other orthopedic aftercare (Z47.89) Active confirmed Vital Signs Height 5'1 in 03/18/2025 Weight 325 lbs 03/18/2025 BMI 61.4 03/18/2025 Encounters Encounter Location Date Provider Diagnosis [facility] Office [address] [place] [address] [place] [address] 08/20/2024 Gaurav Snyder Primary osteoarthrit is of right shoulder M19.011 and Weakness of right shoulder R29.898 [facility] [address] [facility] [place] [address] 09/17/2024 Gaurav Snyder Primary osteoarthrit is of right shoulder M19.011 [facility] [facility] [address] [facility] [place] [address] [place] [address] 10/15/2024 Gaurav Snyder Arthritis of right acromioclavicular joint M19.011 [facility] [address] [facility] [place] [address] 11/05/2024 Gaurav Snyder Arthritis of right acromioclavicular joint M19.011 [facility] [facility] [address] [facility] [place] [address] [place] [address] 11/12/2024 Gaurav Snyder Encounter for other orthopedic aftercare Z47.89 [facility] [facility] [address] [facility] [place] [address] [place] [address] 12/17/2024 [facility]th[facility] of right acromioclavicular joint M19.011 [facility] [address] [facility] [place] [address] [place] [address] 01/28/2025 [place] Encounter for other orthopedic aftercare Z47.89 [facility] [facility] [address] [facility] [place] [address] [place] [address] 02/11/2025 Gloria [place] Primary osteoarthritis of right shoulder M19.011 [facility] [facility] [address] [facility] [place] [address] [place] [address] 03/18/2025 Gloria [facility] Arthritis of right acromioclavicular joint M19.011 [facility] [facility] [address] [facility] [place] [address] 07/16/2024 Gaurav Snyder [facility] [address] [facility] [place] [address] 02/04/2025 Gloria [place] Assessments Encounter Date Diagnosis (ICD Code) Assessment Notes Treatment Notes Treatment Clinical Notes Section Notes 08/20/2024 Primary osteoarthritis of right shoulder (ICD-10 [...] months status post right distal clavicle excision 08/20/2024 Other For right shoulder AC joint [...] with physical therapy. She does work at [employer] and has to lift sometimes 50 pounds, [...] She states she did get fired from [employer] so is currently unemployed. We will see [...] Coverage Start Date Coverage End Date SHARIFA [facility] [address] [place] [address] [id number] DELORES ROCHE Spouse - patient is the [...]
--- NOTE | 2025-07-11 23:04 | ECG_ITS ---
The [facility] Test Date: 2025-07-11 Pat Name: NOEL ROCHE Department: Room: - Gender: Female Cracking Machine Operator: : 1990 Requested By: [id number] Order Number: [id number] Reading MD: PRADEEP ROLLINS M.D. Measurements Intervals Wheel[place] Rate: 81 P: 61 IN: 172 QRS: 54 QRSD: 86 T: 37 QT: 346 QTc: 383 Interpretive Statements 1100 Sinus rhythm 9110 normal ECG Compared to ECG 10/26/2024 10:47:36 No significant changes Electronically Signed On 07-12-2025 20:49:34 EDT by PRADEEP ROLLINS M.D.
--- NOTE | 2025-07-11 23:06 | ED.CHESTPAI1 ---
HPI - Chest Pain General Chief Complaint: Chest Pain Stated Complaint: CHEST PAIN, LIGHTHEADED Time Seen by Provider: 07/11/25 22:44 Source: patient Mode of arrival: Wheelchair Limitations: no limitations History of Present Illness HPI narrative: This 35-year-old female who is morbidly obese and has a history of diabetes but is not a smoker presents for evaluation of left-sided chest pain with dizziness and nausea. The patient states the symptoms started while she was riding in a car. She did not pass out. She has pain with movement and palpation in the left anterior chest. She states it radiates into her left shoulder. She has no abdominal pain or back pain. She denies any injury. She states she was recently admitted to [facility] for chest pain. She was evaluated and found to have pulmonary hypertension and the lower part of her heart was not beating properly. They did not send her home on any medications. She denies any cough or shortness of breath. She has not recently checked her sugar. She has no lower extremity pain or swelling. Related Data Home Medications ?Medication ?Instructions ?Recorded ?Confirmed cholecalciferol (vitamin D3) 125 125 mcg PO QAM 10/26/24 03/05/25 mcg (5,000 unit) tablet escitalopram oxalate 20 mg tablet 20 mg PO QAM 10/26/24 03/05/25 glipizide 5 mg tablet 5 mg PO QAM 10/26/24 03/05/25 metformin 500 mg tablet 500 mg PO BID 10/26/24 03/05/25 trazodone 100 mg tablet 100 mg PO QPM PRN sleep 10/26/24 03/05/25 Allergies Allergy/AdvReac Type Severity Reaction Status Date / Time Sulfa (Sulfonamide Allergy Severe Hives Verified 07/11/25 22:42 Antibiotics) Review of Systems ROS Status of ROS 10 or more systems reviewed and unremarkable except as noted in history and below [facility] Medical History (Updated 07/12/25 @ 00:25 by Eun Tucker MD) Arthritis of right acromioclavicular joint ?M19.011 - Primary osteoarthritis, right shoulder (ICD-10) Acromioclavicular joint arthritis ?M19.019 - Primary osteoarthritis, unspecified shoulder (ICD-10) Accessory navicular bone of both feet ?Q74.2 - Other congenital malformations of lower limb(s), including pelvic girdle (ICD-10) Navicular fracture of ankle ?S92.253A - Displaced fracture of navicular [scaphoid] of unspecified foot, initial encounter for closed fracture (ICD-10) Osteoarthritis ?M19.90 - Unspecified osteoarthritis, unspecified site (ICD-10) Insomnia ?G47.00 - Insomnia, unspecified (ICD-10) Anxiety ?F41.9 - Anxiety disorder, unspecified (ICD-10) Restless leg ?G25.81 - Restless legs syndrome (ICD-10) GERD (gastroesophageal reflux disease) ?K21.9 - Gastro-esophageal reflux disease without esophagitis (ICD-10) Diabetes ?E11.9 - Type 2 diabetes mellitus without complications (ICD-10) Surgical History (Updated 10/26/24 @ 10:36 by Laura Cabral) History of cholecystectomy ?Z90.49 - Acquired absence of other specified parts of digestive tract (ICD-10) Family History (Updated 10/26/24 @ 10:32 by Laura Cabral) Other Family history of COPD (chronic obstructive pulmonary disease) Family history of coronary artery disease Family history of diabetes mellitus Family history of seizures Social History (Updated 10/26/24 @ 10:30 by Laura Cabral) Within the past year, how often did you have a drink containing alcohol: never Score interpretation: A score less than 3 is consistent with normal alcohol consumption. 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 Highest level of school completed/degree received: high school graduate Little interest or pleasure in doing things: not at all Feeling down, depressed, or hopeless: not at all Exam Narrative Exam Narrative: Vital signs and Nursing Notes reviewed: Patient is afebrile with a normal pulse, blood pressure is minimally elevated at 140/79, she is not hypoxic with pulse ox of 95% on room air General: Obese adult female, she is awake, alert, rubbing her left upper chest wall, no respiratory distress HEENT: Normocephalic atraumatic, mucous membranes are moist and pink, eyes are clear, normal conjunctiva, vision is grossly intact Neck: Supple, no JVD Chest: Lungs are clear to auscultation with good air entry, there is no wheezing rhonchi or rales appreciated no accessory muscle use, patient is speaking in complete sentences-chest wall is tender to palpation without crepitus, bruising or skin rash noted CVS: Regular rate and rhythm S1-S2, no murmurs rubs or gallops, pulses are brisk and equal bilaterally ABD: Soft, nondistended, nontender, no rebound guarding or rigidity, bowel sounds are normal, no pulsatile masses appreciated Extremities: Moving all extremities, no lower extremity tenderness or swelling noted, negative Homans' sign, pulses are brisk and equal bilaterally, healed incisions on medial aspect of both ankles Skin: Normal in appearance without rash,pallor, petechiae or purpura Neuro: No focal deficits Constitutional Vital Signs, click to edit/add: Last Vital Signs Temp 98.5 F 07/11/25 22:42 Pulse 87 07/11/25 22:42 Resp 19 07/11/25 22:42 BP 140/79 07/11/25 22:42 Pulse Ox 95 07/11/25 22:42 O2 Del Method Room Air 07/11/25 22:42 Course Vital Signs Vital signs: Vital Signs Temperature 98.5 F 07/11/25 22:42 Pulse Rate 87 07/11/25 22:42 Respiratory Rate 19 07/11/25 22:42 Blood Pressure 140/79 07/11/25 22:42 Pulse Oximetry 95 07/11/25 22:42 Oxygen Delivery Method Room Air 07/11/25 22:42 Temperature 98.5 F 07/11/25 22:42 Pulse Rate 87 07/11/25 22:42 Respiratory Rate 19 07/11/25 22:42 Blood Pressure 140/79 07/11/25 22:42 Pulse Oximetry 95 07/11/25 22:42 Oxygen Delivery Method Room Air 07/11/25 22:42 MDM - Chest Pain MDM Narrative Medical decision making narrative: This 35-year-old female with a history of diabetes and morbid obesity who does not smoke presents for evaluation of left-sided chest pain. She states she was in the car when the pain started. She states she is lightheaded as well and nauseated. She denies any injury. She states she was recently mated to [facility] for chest pain and found to have something wrong with one of the lower chambers of her heart and pulmonary hypertension. She states she was discharged home without any medications for these findings. She is tender in her chest wall. EKG done upon arrival sinus rhythm at 80 bpm with no acute findings. An IV was placed and she was medicated with IV fluids and Zofran for her lightheadedness and nausea and given 324 mg aspirin and Toradol. Cardiac workup was ordered. She has a normal white count and stable hemoglobin. Electrolytes are normal with exception of a glucose of 194. Troponin is normal and D-dimer is normal. On reevaluation the patient states she is still having pain and was given a dose of Tylenol. 1 view chest x-ray was ordered once the D-dimer resulted as negative. Medical Records Data Attestation: I reviewed the patient's medical records. Lab Data Attestation: I reviewed the patient's lab results. Labs: Lab Results 07/11/25 07/11/25 Range/Units 22:50 23:50 WBC 10.7 (4.0-11.0) 10^3/uL RBC 4.58 (4.20-5.40) 10^6/uL Hgb 11.9 L (12.0-16.0) g/dL Hct 37.5 (36.0-48.0) % MCV 81.9 (81.0-99.0) fL MCH 26.0 L (26.7-34.0) pg MCHC 31.7 (29.9-35.2) g/dL RDW 15.4 H (11.0-15.0) % Plt Count 316 (150-450) 10^3/uL MPV 9.2 L (9.5-13.5) fL Neut % (Auto) 68.8 (43.0-75.0) % Lymph % (Auto) 22.0 (20.5-60.0) % [place] % (Auto) 4.1 (1.7-12.0) % Eos % (Auto) 4.0 (0.9-7.0) % Baso % (Auto) 0.6 (0.2-2.0) % Neut # (Auto) 7.3 H (1.4-6.5) 10^3/uL Lymph # (Auto) 2.3 (1.2-3.8) 10^3/uL [place] # (Auto) 0.4 (0.3-0.8) 10^3/uL Eos # (Auto) 0.4 (0.0-0.7) 10^3/uL Baso # (Auto) 0.1 (0.0-0.1) 10^3/uL Abs Immat Gran (auto) 0.05 H (0.00-0.03) 10^3/uL Imm/Tot Granulo (auto) 0.5 (0.0-0.5) % D-Dimer 0.24 (<=0.59) mg/L FEU Sodium 137 (136-145) mmol/L Potassium 3.7 (3.5-5.1) mmol/L Chloride 103 (98-107) mmol/L Carbon Dioxide 30.7 (21.0-32.0) mmol/L Anion Gap 7.0 BUN 14.0 (7.0-18.0) mg/dL Creatinine 0.82 (0.55-1.02) mg/dL Est GFR ( Amer) >60 (>=60 mL/min/1.73m^2) Est GFR (Non-Af Amer) >60 (>=60 mL/min/1.73m^2) BUN/Creatinine Ratio 17.1 Glucose 194 H (74-106) mg/dL Calcium 9.1 (8.5-10.1) mg/dL Total Bilirubin 0.6 (0.2-1.0) mg/dL AST 17 (15-37) U/L ALT 35 (14-59) U/L Alkaline Phosphatase 64 (46-116) U/L Troponin I High Sens 4.4 (4.0-51.3) pg/mL Total Protein 7.4 (6.4-8.2) g/dL Albumin 3.3 L (3.4-5.0) g/dL Globulin 4.1 g/dL Albumin/Globulin Ratio 0.8 ECG Data Attestation: I personally reviewed and interpreted this ECG as follows: (Sinus rhythm 80 bpm, normal axis, normal intervals, no acute ST segment elevation or T wave inversion) Heart Score History: Slightly/Non-Suspicious ECG: Normal Age: <45 years Risk Factors: 1 or 2 Risk Factors Troponin: <Normal Limit Total Heart Score Recommendations & Risks:: 1 Discharge Plan Discharge Chief Complaint: Chest Pain Clinical Impression: Anterior chest wall pain, Non-cardiac chest pain, Hyperglycemia Patient Disposition: Home, Self-Care Time of Disposition Decision: 00:24 Condition: Good Prescriptions / Home Meds: No Action cholecalciferol (vitamin D3) 125 mcg (5,000 unit) tablet 125 mcg PO QAM escitalopram oxalate 20 mg tablet 20 mg PO QAM glipizide 5 mg tablet 5 mg PO QAM trazodone 100 mg tablet 100 mg PO QPM PRN (Reason: sleep) metformin 500 mg tablet 500 mg PO BID Print Language: American Instructions: Noncardiac Chest Pain (ED), Diabetic Hyperglycemia (ED), Chest Wall Pain (ED) Referrals: GUERRERO EMMANUEL [Primary Care Provider, Family Practice] - 1 week
[2025-07-11 23:12] LABS: Hematocrit 37.5 % (36.0-48.0); Hemoglobin 11.9 g/dL (12.0-16.0); Immature Granulocytes Abs Auto 0.05 10^3/uL (0.00-0.03); Immature Granulocytes Pct Auto 0.5 % (0.0-0.5); Lymphocytes Absolute Auto 2.3 10^3/uL (1.2-3.8); Mean Corpuscular HGB Conc 31.7 g/dL (29.9-35.2); Mean Corpuscular Hemoglobin 26.0 pg (26.7-34.0); Mean Corpuscular Volume 81.9 fL (81.0-99.0); Platelet Count 316 10^3/uL (150-450); Red Blood Count 4.58 10^6/uL (4.20-5.40); White Blood Count 10.7 10^3/uL (4.0-11.0)
[2025-07-11] MEDS: KETOROLAC TROMETHAMINE 30 MG/ML VIAL IVP (23:18)
[2025-07-11] MEDS: ASPIRIN 81 MG TAB.CHEW 324 MG PO (23:18)
[2025-07-11] MEDS: 0.9 % SODIUM CHLORIDE 1,000 ML 1000 ML IV (23:19)
[2025-07-11 23:30] LABS: Alanine Aminotransferase 35 U/L (14-59); Albumin Globulin Ratio 0.8; Albumin Level 3.3 g/dL (3.4-5.0); Alkaline Phosphatase 64 U/L (46-116); Anion Gap 7.0; Aspartate Amino Transferase 17 U/L (15-37); Blood Urea Nitrogen 14.0 mg/dL (7.0-18.0); Calcium 9.1 mg/dL (8.5-10.1); Carbon Dioxide 30.7 mmol/L (21.0-32.0); Chloride 103 mmol/L (98-107); Estimated GFR (African America >60 (>=60 mL/min/1.73m^2); Estimated GFR (Non-African Ame >60 (>=60 mL/min/1.73m^2); Globulin 4.1 g/dL; Glucose 194 mg/dL (74-106); Potassium 3.7 mmol/L (3.5-5.1); Sodium 137 mmol/L (136-145); Total Protein 7.4 g/dL (6.4-8.2)
[2025-07-12] VITALS: PULSE 79; O2SAT 93
[2025-07-12 00:10] VITALS: PULSE 73; O2SAT 93
--- NOTE | 2025-07-12 00:13 | XR_ITS ---
The [address] [address] Patient Name: NOEL ROCHE MRN: [id number] date: 1990 Sex: F Assigned Patient Location: ER Current Patient Location: Accession/Order Number: [id number] Exam Date: 07/12/2025 08:39 Report Date: 07/12/2025 08:40 At the request of: CAIN DEE MD Procedure: XR chest 1V Single view chest: CLINICAL HISTORY: CP COMPARISON: Chest 11/05/2024 FINDINGS: Suboptimal due to body habitus. Cardiomegaly or vascular congestion. No consolidation pneumothorax large pleural effusion or free air. XR/XR chest 1V IMPRESSION: CHF FINDINGS. Impression dictated by: Angelo Hernandez Jr.OCammie 07/12/2025 8:40 AM Dictation Location: [place] [address] Electronically authenticated by: [id number] Y Date: 07/12/2025 08:40
[2025-07-12 00:20] VITALS: PULSE 79; O2SAT 95
--- NOTE | 2025-07-12 00:25 | XR_ITS ---
The [address] [address] Patient Name: NOEL ROCHE MRN: [id number] date: 1990 Sex: F Assigned Patient Location: ER Current Patient Location: Accession/Order Number: [id number] Exam Date: 07/12/2025 08:40 Report Date: 07/12/2025 08:42 At the request of: CAIN DEE MD Procedure: XR chest 2V Chest 2 views CLINICAL HISTORY: CP COMPARISON: Chest performed earlier today FINDINGS: Cardiomegaly with vascular congestion is similar to the prior study. No consolidation pneumothorax pleural effusion or free air XR/XR chest 2V IMPRESSION: CHF FINDINGS SIMILAR TO THE PRIOR STUDY. Impression dictated by: Peter White Jr., D.OCammie 07/12/2025 8:42 AM Dictation Location: [place] [address] Electronically authenticated by: [id number] Y Date: 07/12/2025 08:42
[2025-07-12 00:30] VITALS: PULSE 76; O2SAT 94
[2025-07-12 00:40] VITALS: PULSE 71; O2SAT 95
[2025-07-12] MEDS: ACETAMINOPHEN 325 MG TABLET 650 MG PO (00:40)
== END 2025-07-12 00:53 | disposition home or self-care (01) ==
PROVIDERS: Emergency Provider Emergency Medicine; PCP Nurse Practitioner Family
DX: R07.89 Other chest pain (principal); R73.9 Hyperglycemia, unspecified; R42 Dizziness and giddiness; R11.0 Nausea
CPT/HCPCS: 36415; 71045; 71046; 80053; 84484; 85025; 85378; 93005; 96361; 96374; 96375; 99284; 99285; J1885; J2405

== ENCOUNTER 2025-07-25 17:59 | Emergency (ER) | payer BC, SELFPAY ==
[2025-07-25 18:04] VITALS: BP 127/84; PULSE 85; TEMP 37.3; O2SAT 97; BMI 61.6
--- OUTSIDE RECORDS SUMMARY | 2025-07-25 18:14 | XMS_ITS | CCD ---
Author Organization [facility] [place] Care Team Providers Care Accounts Receivable Analyst Name Role Phone Monique Dudley Unavailable MONIQUE EMMANUEL Attending Unavailable LIEN, MONQIUE Primary Care Unavailable LIEN, MONIQUE Admitting Unavailable [...] Unavailable BRIDGETTE ., PA MARCELL Consulting Unavailabl scar Dudley NP-Teresa Amaya Attending Provider LORI Emmanuel Primary Care Provider MONIQUE EMMANUEL Primary Care Physician [phone] Pato Avelar Referring Unavailable Pato Avelar Attending Unavailable Pato Avelar Admitting Unavailable SHITAL Avelar Attending Provider PATO AVELAR Attending Unavailable PATO AVELAR Attending Unavailable PATO AVELAR Attending Unavailable PATO AVELAR Attending Unavailable PATO AVELAR Attending Unavailable PATO AVELAR Attending Unavailable Lien LONG, Monique Unavailable Lien LONG, Monique Unavailable Jose LONG, Erich Barraza Primary Care Provider [phone] Jaime Camargo DO Unavailable Valentino, DPMadi Johnson Attending Unavailabl e Brown, DPM [...] Referring Unavailable ESPERANZASEAN Attending Unavailab le LIEN, MONQIUE S Primary Care Unavailable SELF Referring Unavailable LIEN, MONIQUE S Primary Care Unavailable ESPERANZA, SEAN Sales Attending Unavailab le SELF Referring Unavailable LIEN, MONIQUE S Primary Care Unavailable ESPERANZASEAN Referring Unavailab le LIEN, MONIQUE S Primary Care Unavailable LIEN, MONIQUE S Primary Care Unavailable ESPERANZASEAN ODONNELL Attending Unavailab le LIEN, MONIQUE S Primary Care Unavailable ESPERANZASEAN ODONNELL Referring Unavailab le ESPERANZASEAN Attending Unavailab le ESPERANZASEAN Referring Unavailab le Lien PROVIDER NETWORK MGR-C, Monique Alicia Primary Care Provider [phone] Marek Dennis DO Emergency Provider [phone] Neo Mclaughlin MD Admit Provider Neo Mclaughlin MD Attending Provider Maryanne Unger RN Other Provider Unavailable Balaji Cohen MD Other Provider Kvng Carcamo MD Other Provider [phone] Inge Adler MD Attending Provider Inge Adler MD Other Provider Merry Nieves APRN Other Provider Mitch Galaviz MD Other Provider Lien, Monique Alicia Primary Care Unavailable Neo Mclaughlin Admitting Unavailable Mischlchristelle, Maryanne Consulting Unavailable Mitch Galaviz Attending Unavailab le Maryanne Unger Consulting Unavailable Balaji Cohen Consulting Unavailable Kvng Carcamo Consulting Unavai Inge Chapman Consulting Unavailable Merry Nieves Consulting Unavailable Allergies Allergy Classification Reported Allergen(s) Allergy Type Date of Onset Reaction(s) Facility (1 source) Egg protein Drug allergy [employer]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[employer] Other (1 source) Sulf-10 Drug allergy [facility] [employer] Other (1 source) Sulfonamides (Antibiotic) Drug allergy (disorder) 3 [facility] Rep[facility] (20 sources) Sulfonamides (Antibiotic); Translations: [SULFA (SULFONAMIDE ANTIBIOTICS)] [facility] Egg Derived; Translations: [Egg Derived] Allergy to substance 4 [facility] (5 sources) Sulfonamides (Antibiotic); Translations: [sulfa drugs] Drug allergy [facility] (20 sources) Sulfonamides (Antibiotic) Drug Allergy 4 Rash[facility] Medications Current Medications Medication Drug Class(es) Dates Sig (Normalized) Sig (Original) acetaminophen 325 mg / HYDROcodone bitartrate 5 mg oral tablet (2 sources) Opioid Agonist Start: 08-30-2024 End: 09-04-2024 take 1 tablet by mouth every eight hours as needed for pain HYDROcodone-aceta minophen ([place]) 5-325 MG tablet Indications: Pain Take 1 [...] eduin as directed. 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) Start: 09-20-2024 DEXCOM G7 [...] day at the same time 03/12/2024 Active Muddy Sling (3 sources) Start: 02-27-2024 Muddy Slin g Active 0 .Route February 27, 2024 12:00am As directed Muddy Sling unit (4 sources) Start: 02-27-2024 Muddy Slin g unit Active 0 .Route February [...] protocolon 06-16-2025 CT angio chest PE protocol [facility] Main [address] [address] [address] Scan Report Signed Patient: Noel Paul MR#: [id number] : 1990 Acct:[id number] Age/Sex: 34 / F ADM Date: 06/15/25 Loc: Room: [address] [place] [address] Type: ADM INOo Attending Dr: Mitch Galaviz [...] CALIBER. SUSPECT CARDIOMEGALY. Impression dictated by: Joshua Prinec M.D. 06/16/2025 12:11 PM Dictation Location: [place] [address] Transcribed By: [facility] 06/16/25 1211 Dictated By: Joshua Prince MD 06/16/25 1208 Signed By: 06/16/25 1211 Normal [facility] ECG 12 lead ECGon 06-16-2025 ECG 12 lead ECG [facility] [place] [address] Electrocardiograph Report Signed Patient: Noel Paul MR#: [id number] : 1990 Acct:[id number] Age/Sex: 34 / F ADM Date: 06/15/25 Loc: Room: [address] [place] [address] Type: ADM INOo Attending Dr: Mitch Galaviz [...] rhythm Normal ECG Confirmed by Inge Adler ([id number]) on 06/16/2025 10:58:02 AM Referred By: Electronically Signed By: Inge Adler Transcribed By: MUS Signed By Inge Adler MD 5 1058 Normal [facility] Glucose Poct Glucometerson 0 06-16-2025 Glucose [Mass/Vol] 106 mg/dL Normal [facility] Comment on above: Result Comment: [place] Glucose Reference Range is dependent on time and content of last meal. Glucose of more than 200 mg/dL in a nonstressed, ambulatory subject supports the diagnosis of Diabetes Mellitus. PERFORMED BY: [place] [id number] PATHOLOGIST TABLEAU DEVELOPER CHANEL ROMERO M.D. Performed By: #### G LULS #### Point of Care testing , Commemt1 Glu2: Cleaned Meter Normal [facility] Comment on above: Result Comment: PERF ORMED BY: [facility] [address] [place] [address] PATHOLOGIST TABLEAU DEVELOPER CHANEL ROMERO M.D. Performed By: #### G LULS #### Point of Care testing , Glucose [Mass/Vol] 124 mg/dL Normal [facility] Comment on above: Result Comment: [place] om Glucose Reference Range is dependent on time and content of last meal. Glucose of more than 200 mg/dL in a nonstressed, ambulatory subject supports the diagnosis of Diabetes Mellitus. Performed By: #### G LULS #### Point of Care testing , Commemt1 Glu2: Cleaned Meter Normal [facility] Comment on above: Result Comment: PERF ORMED BY: [place] [address] PATHOLOGIST TABLEAU DEVELOPER CHANEL ROMERO M.D. Performed By: #### G LULS #### Point of Care testing , Glucose [Mass/Vol] 125 mg/dL Normal [facility] Comment on above: Result Comment: [facility] Glucose Reference Range is dependent on time and content of last meal. Glucose of more than 200 mg/dL in a nonstressed, ambulatory subject supports the diagnosis of Diabetes Mellitus. Performed By: #### G LULS #### Point of Care testing , Troponin I High Sensitivityo n 06-16-2025 Troponin I High Sensitivity 3 Normal 0-15 [facility] Comment on above: Result Comment: The Troponin units of report have been changed to meet the Chest Pain Accreditation requirement, element EC5.M1l2. Troponin units are changed from pg/ml to ng/L. Also, the decimal is removed and results are in whole numbers. PERFORMED BY: [place] [address] PATHOLOGIST TABLEAU DEVELOPER CHANEL ROMERO M.D. Performed By: #### G LULS #### Point of Care testing , A1C with Estimated Average [facility] 06-15-2025 Glucose [Mass/Vol] 137 mg/dL Normal [facility] Comment on above: Result Comment: PERF ORMED BY: [place] [address] PATHOLOGIST TABLEAU DEVELOPER CHANEL ROMERO M.D. Performed By: #### H S TROP #### [address] HbA1c (Bld) [Mass fraction] 6.4 % High 4.3-5.6 [facility] Comment on above: Result Comment: Incr eased risk for diabetes: 5.7 - 6.4 diabetes: >6.4 glycemic control for adults with diabetes: <7.0 Performed By: #### H S TROP #### [facility] [address] Basic Metabolic Panelon 05-28 Anion gap [Moles/Vol] 10.1 mmol/L Normal 6.0-15.0 [facility] Comment on above: Performed By: #### H S TROP #### [facility] [address] [place] [address] [place] Calcium [Mass/Vol] 8.7 mg/dL Normal 8.6-10.3 [facility] Comment on above: Performed By: #### H S TROP #### [facility] [address] [place] [address] [place] Chloride [Moles/Vol] 103 mmol/L Normal 98-107 [facility] Comment on above: Performed By: #### H S TROP #### [address] CO2 [Moles/Vol] 30.9 mmol/L Normal 21.0-31.0 [facility] Comment on above: Performed By: #### H S TROP #### [place] [address] [place] Creatinine [Mass/Vol] 0.86 mg/dL Normal 0.60-1.20 [facility] Comment on above: Performed By: #### H S TROP #### [facility] [address] [place] [address] [place] Creatinine Clr Calc Pharmacy 129.66 Normal [facility] Comment on above: Performed By: #### H S TROP #### [place] [address] [place] GFR/1.73 sq M.predicted MDRD (S/P/Bld) [Vol rate/Area] mL/min/{1.73_m2} Normal [facility] Comment on above: Performed By: #### H S TROP #### [place] [address] [place] Glucose [Mass/Vol] 123 mg/dL High 70-100 [facility] Comment on above: Result Comment: [place] om Glucose Reference Range is dependent on time and content of last meal. Glucose of more than 200 mg/dL in a nonstressed, ambulatory subject supports the diagnosis of Diabetes Mellitus. ADA recommended reference range Performed By: #### H S TROP #### [address] Potassium [Moles/Vol] 4.0 mmol/L Normal 3.5-5.1 [facility] Comment on above: Performed By: #### H S TROP #### [address] Sodium [Moles/Vol] 140 mmol/L Normal 136-145 [facility] Comment on above: Performed By: #### H S TROP #### [address] Urea nitrogen [Mass/Vol] 17 mg/dL Normal 7-25 [facility] Comment on above: Performed By: #### H S TROP #### [address] Complete Blood Count Auto Di ffon 06-15-2025 Basophils (Bld) [#/Vol] 0.1 10*3/uL Normal 0.0-0.2 [facility] Comment on above: Result Comment: PERF ORMED BY: [place] [address] PATHOLOGIST TABLEAU DEVELOPER CHANEL ROMERO M.D. Performed By: #### H S TROP #### [place] [address] [place] Basophils/100 WBC (Bld) 0.7 % Normal . [facility] Comment on above: Performed By: #### H S TROP #### [place] [address] [place] Eosinophils (Bld) [#/Vol] 0.3 10*3/uL Normal 0.0-0.45 [facility] Comment on above: Performed By: #### H S TROP #### [place] [address] [place] Eosinophils/100 WBC (Bld) 2.8 % Normal . [facility] Comment on above: Performed By: #### H S TROP #### [address] Erythrocyte distribution width (RBC) [Ratio] 17.1 % High 11.9-15.3 [facility] Comment on above: Performed By: #### H S TROP #### [address] Hematocrit (Bld) [Volume fraction] 36.5 % Normal 34.0-46.4 [facility] Comment on above: Performed By: #### H S TROP #### [address] Hemoglobin (Bld) [Mass/Vol] 11.6 g/dL Low 11.8-15.4 [facility] Comment on above: Performed By: #### H S TROP #### [address] Lymphocytes (Bld) [#/Vol] 1.9 10*3/uL Normal 1.00-4.8 [facility] Comment on above: Performed By: #### H S TROP #### [address] Lymphocytes/100 WBC (Bld) 16.9 % Normal . [facility] Comment on above: Performed By: #### H S TROP #### [address] MCH (RBC) [Entitic mass] 25.0 pg Normal 24.7-34.3 [facility] Comment on above: Performed By: #### H S TROP #### [address] MCV (RBC) [Entitic vol] 78.4 fL Low 80-100 [facility] Comment on above: Performed By: #### H S TROP #### [address] Mean Corpuscular HGB Conc 31.9 g/dL Low 32.0-35.0 [facility] Comment on above: Performed By: #### H S TROP #### [place] [address] [place] Monocytes (Bld) [#/Vol] 0.6 10*3/uL Normal 0.0-0.8 [facility] Comment on above: Performed By: #### H S TROP #### [address] Monocytes/100 WBC (Bld) 5.6 % Normal . [facility] Comment on above: Performed By: #### H S TROP #### [address] Neutrophils (Bld) [#/Vol] 8.3 10*3/uL High 1.8-7.7 [facility] Comment on above: Performed By: #### H S TROP #### [place] [address] [place] Neutrophils/100 WBC (Bld) 74.0 % Normal . [facility] Comment on above: Performed By: #### H S TROP #### [address] NRBC% 0.1 /100{WBC} Normal 0-0.5 [facility] Comment on above: Performed By: #### H S TROP #### [address] Platelet mean volume (Bld) [Entitic vol] 7.4 fL Normal 6.3-10.7 [facility] Comment on above: Performed By: #### H S TROP #### [place] [address] [place] Platelets (Bld) [#/Vol] 349 10*3/uL Normal 150-450 [facility] Comment on above: Performed By: #### H S TROP #### [place] [address] [place] RBC (Bld) [#/Vol] 4.65 10*6/uL Normal 3.60-5.00 [facility] Comment on above: Performed By: #### H S TROP #### [facility] [address] WBC (Bld) [#/Vol] 11.2 10*3/uL Normal 3.8-11.6 [facility] Comment on above: Performed By: #### H S TROP #### [facility] [address] [place] [address] White Blood Count 11.2 [CFU]/mL Normal 3.8-11.6 [facility] Comment on above: Performed By: #### H S TROP #### [facility] [address] [place] [address] ECG 12 lead ECGon 06-15-2025 ECG 12 lead ECG [facility] [place] [address] Electrocardiograph Report Signed Patient: Noel Paul MR#: [id number] : 1990 Acct:[id number] Age/Sex: 34 / F ADM Date: 06/15/25 Loc: Room: [address] [place] [address] Type: ADM INOo Attending Dr: Mitch Galaviz [...] rhythm Normal ECG Confirmed by Inge Adler ([id number]) on 06/15/2025 7:22:48 PM Referred By: Electronically Signed By: Inge Adler Transcribed By: MUS Signed By Inge Adler MD 1921 Normal [facility] ECG 12 lead ECG [facility] [place] [address] Electrocardiograph Report Signed Patient: Noel Paul MR#: [id number] : 1990 Acct:[id number] Age/Sex: 34 / F ADM Date: 06/15/25 Loc: 3T Room: [address] [place] [address] Type: ADM INOo Attending Dr: Mitch Galaviz [...] Normal sinus rhythm Normal ECG Confirmed by nIge Adler ([id number]) on 06/15/2025 7:22:44 PM Referred By: Electronically Signed By: Inge Adler Transcribed By: MUS Signed By Inge Adler MD 1921 Normal [facility] echo transthoracicon [facility] echo transthoracic [facility] [place] [address] Echocardiogram Signed Patient: oNel Paul MR#: [id number] : 1990 Acct:[id number] Age/Sex: 34 / F ADM Date: 06/15/25 Loc: 3T Room: [address] [place] [address] Type: ADM INOo Attending Dr: Mitch Galaviz MD Ordering Provider: Inge Adler MD Date of Service: 06/15/25 [facility] echo transthoracic: Chest pain Copies to: Inge [...] 1243 Signed By: Inge Adler MD 06/15/25 3185 [facility] Glucose Poct Glucometerson 0 06-15-2025 Commemt1 Glu2: Cleaned Meter Normal [facility] Comment on above: Result Comment: PERF ORMED BY: [address] [place] [address] PATHOLOGIST TABLEAU DEVELOPER CHANEL ROMERO M.D. Performed By: #### G LULS #### Point of Care testing , Glucose [Mass/Vol] 111 mg/dL Normal [facility] Comment on above: Result Comment: [place] om Glucose Reference Range is dependent on time and content of last meal. Glucose of more than 200 mg/dL in a nonstressed, ambulatory subject supports the diagnosis of Diabetes Mellitus. Performed By: #### G LULS #### Point of Care testing , Glucose [Mass/Vol] 108 mg/dL Normal [facility] Comment on above: Result Comment: [place] om Glucose Reference Range is dependent on time and content of last meal. Glucose of more than 200 mg/dL in a nonstressed, ambulatory subject supports the diagnosis of Diabetes Mellitus. PERFORMED BY: [address] [place] [address] PATHOLOGIST TABLEAU DEVELOPER CHANEL ROMERO M.D. Performed By: #### G LULS #### Point of Care testing , Glucose [Mass/Vol] 74 mg/dL Normal [facility] Comment on above: Result Comment: [place] om Glucose Reference Range is dependent on time and content of last meal. Glucose of more than 200 mg/dL in a nonstressed, ambulatory subject supports the diagnosis of Diabetes Mellitus. PERFORMED BY: [address] [place] [address] PATHOLOGIST TABLEAU DEVELOPER CHANEL ROMERO M.D. Performed By: #### G LULS #### Point of Care testing , Commemt1 Glu2: Cleaned Meter Normal [facility] Comment on above: Result Comment: PERF ORMED BY: [address] [place] [id number] PATHOLOGIST TABLEAU DEVELOPER CHANEL ROMERO M.D. Performed By: #### G LULS #### Point of Care testing , Glucose [Mass/Vol] 88 mg/dL Normal [facility] Comment on above: Result Comment: [place] om Glucose Reference Range is dependent on time and content of last meal. Glucose of more than 200 mg/dL in a nonstressed, ambulatory subject supports the diagnosis of Diabetes Mellitus. Performed By: #### G LULS #### Point of Care testing , Commemt1 Glu2: Cleaned Meter Normal [facility] Comment on above: Result Comment: PERF ORMED BY: [place] [address] PATHOLOGIST TABLEAU DEVELOPER CHANEL ROMERO M.D. Performed By: #### G LULS #### Point of Care testing , Glucose [Mass/Vol] 79 mg/dL Normal [facility] Comment on above: Result Comment: [place] om Glucose Reference Range is dependent on time and content of last meal. Glucose of more than 200 mg/dL in a nonstressed, ambulatory subject supports the diagnosis of Diabetes Mellitus. Performed By: #### G LULS #### Point of Care testing , Glucose [Mass/Vol] 64 mg/dL Normal [facility] Comment on above: Result Comment: [place] om Glucose Reference Range is dependent on time and content of last meal. Glucose of more than 200 mg/dL in a nonstressed, ambulatory subject supports the diagnosis of Diabetes Mellitus. PERFORMED BY: [place] [address] PATHOLOGIST TABLEAU DEVELOPER CHANEL ROMERO M.D. Performed By: #### G LULS #### Point of Care testing , Glucose [Mass/Vol] 94 mg/dL Normal [facility] Comment on above: Result Comment: [place] om Glucose Reference Range is dependent on time and content of last meal. Glucose of more than 200 mg/dL in a nonstressed, ambulatory subject supports the diagnosis of Diabetes Mellitus. PERFORMED BY: [address] [place] [id number] PATHOLOGIST TABLEAU DEVELOPER CHANEL ROMERO M.D. Performed By: #### G LULS #### Point of Care testing , Commemt1 Glu2: Cleaned Meter Normal [facility] Comment on above: Result Comment: PERF ORMED BY: [facility] [address] [place] [address] PATHOLOGIST TABLEAU DEVELOPER CHANEL ROMERO M.D. Performed By: #### G LULS #### Point of Care testing , Glucose [Mass/Vol] 115 mg/dL Normal [facility] Comment on above: Result Comment: [place] om Glucose Reference Range is dependent on time and content of last meal. Glucose of more than 200 mg/dL in a nonstressed, ambulatory subject supports the diagnosis of Diabetes Mellitus. Performed By: #### G LULS #### Point of Care testing , Commemt1 Glu2: Cleaned Meter Normal [facility] Comment on above: Result Comment: PERF ORMED BY: [facility] [address] [place] [address] PATHOLOGIST TABLEAU DEVELOPER CHANEL ROMERO M.D. Performed By: #### G LULS #### Point of Care testing , Glucose [Mass/Vol] 135 mg/dL Normal [facility] Comment on above: Result Comment: [place] om Glucose Reference Range is dependent on time and content of last meal. Glucose of more than 200 mg/dL in a nonstressed, ambulatory subject supports the diagnosis of Diabetes Mellitus. Performed By: #### G LULS #### Point of Care testing , Lipid Panelon 06-15-2025 Cholesterol [Mass/Vol] 158 mg/dL Normal 140-200 [facility] Comment on above: Result Comment: Chol less than 200 mg/dl low risk Chol 201-239 mg/dl borderline risk Chol 240 mg/dl and greater high risk Performed By: #### H S TROP #### [place] [address] [place] Cholesterol in HDL [Mass/Vol] 31 mg/dL Normal 23-92 [facility] Comment on above: Result Comment: HDL CHOL ATP-III CLASSIFICATION Cardiovascular Risk HDL > or equal to 60 mg/dL LOW HDL < 40 mg/dL HIGH Performed By: #### H S TROP #### [facility] [address] [place] [id number] [place] Cholesterol.total/Chol esterol in HDL [Mass ratio] 5.1 {ratio} Normal <5.0 [facility] Comment on above: Result Comment: PERF ORMED BY: [place] [address] PATHOLOGIST TABLEAU DEVELOPER CHANEL ROMERO M.D. Performed By: #### H S TROP #### [address] LDL Cholesterol,Calculated 88 mg/dL Normal 0-100 [facility] Comment on above: Result Comment: LDL ATP III CLASSIFICATION LDL less than 100 mg/dL Optimal LDL 100-129 mg/dL Near or above optimal LDL 130-159 mg/dL Borderline high LDL 160-189 mg/dL High LDL greater than 189 mg/dL Very high Performed By: #### H S TROP #### [address] Triglyceride w/Reflex 197 mg/dL High 0-149 [facility] Comment on above: Result Comment: TRIG ATP III CLASSIFICATION TRIG less than 150 mg/dL Normal TRIG 150-199 mg/dL Borderline high TRIG 200-500 mg/dL High TRIG greater than 500 mg/dL Very high Standard traceable to the Center for Disease Conrtrol and Prevention (CDC) test method. Performed By: #### H S TROP #### [address] VLDL CHOLESTEROL 39 mg/dL Normal [facility] Comment on above: Performed By: #### H S TROP #### [address] Magnesiumon 06-15-2025 Magnesium [Mass/Vol] 1.8 mg/dL Low 1.9-2.7 [facility] Comment on above: Performed By: #### H S TROP #### [place] [address] [place] Troponin I High Sensitivityo n 06-15-2025 Troponin I High Sensitivity 3 Normal 0-15 [facility] Comment on above: Result Comment: The Troponin units of report have been changed to meet the Chest Pain Accreditation requirement, element EC5.M1l2. Troponin units are changed from pg/ml to ng/L. Also, the decimal is removed and results are in whole numbers. PERFORMED BY: [place] [address] PATHOLOGIST TABLEAU DEVELOPER CHANEL ROMERO M.D. Performed By: #### H S TROP #### [address] Troponin I High Sensitivity 4 Normal 0-15 [facility] Comment on above: Result Comment: The Troponin units of report have been changed to meet the Chest Pain Accreditation requirement, element EC5.M1l2. Troponin units are changed from pg/ml to ng/L. Also, the decimal is removed and results are in whole numbers. PERFORMED BY: [place] [address] PATHOLOGIST TABLEAU DEVELOPER CHANEL ROMERO M.D. Performed By: #### H S TROP #### [address] Troponin I High Sensitivity 3 Normal 0-15 [facility] Comment on above: Result Comment: The Troponin units of report have been changed to meet the Chest Pain Accreditation requirement, element EC5.M1l2. Troponin units are changed from pg/ml to ng/L. Also, the decimal is removed and results are in whole numbers. PERFORMED BY: [place] [address] PATHOLOGIST TABLEAU DEVELOPER CHANEL ROMERO M.D. Performed By: #### G LULS #### Point of Care testing , Troponin I.cardiac [Mass/vol ume] in Serum or Plasma by Detection limit <= 0.01 ng/mLOrdered By: Marek Dennis on 06-15-2025 Troponin I.cardiac DL <= 0.01 ng/mL [Mass/Vol] 3 ng/L 0-15 [facility] Comment on above: The Troponin units o f report have been changed to meet the Chest Pain Accreditation requirement, element EC5.M1l2. Troponin units are changed from pg/ml to ng/L. Also, the decimal is removed and results are in whole numbers. BNP ser/plasOrdered By: Kolton Dennis on 06-14-2025 Natriuretic peptide B (Bld) [Mass/Vol] 20.0 pg/mL Normal 5-100 [facility] Comment on above: Result Comment: PERF ORMED BY: [facility] [address] [place] [id number] PATHOLOGIST TABLEAU DEVELOPER CHANEL ROMERO M.D. Performed By: #### G LULS #### Point of Care testing , Basic Metabolic Panelon 05-28 Creatinine Clr Calc Pharmacy 109.28 Normal [facility] Comment on above: Result Comment: PERF ORMED BY: [facility] [address] [place] [address] PATHOLOGIST TABLEAU DEVELOPER CHANEL ROMERO M.D. Performed By: #### G LULS #### Point of Care testing , GFR/1.73 sq M.predicted MDRD (S/P/Bld) [Vol rate/Area] mL/min/{1.73_m2} Normal [facility] Comment on above: Performed By: #### G LULS #### Point of Care testing , Basophils [#/volume] in Bloo d by Automated countOrdered By: PROVIDER TEMP on 06-14-2025 Basophils (Bld) [#/Vol] 0.2 10*3/uL Normal 0.0-0.2 [facility] Comment on above: Result Comment: PERF ORMED BY: [facility] [address] [place] [address] PATHOLOGIST TABLEAU DEVELOPER CHANEL ROMERO M.D. Performed By: #### G LULS #### Point of Care testing , Basophils/100 leukocytes in Blood by Automated countOrdered By: PROVIDER TEMP on 06-14-2025 Basophils/100 WBC (Bld) 1.4 % Normal . [facility] Comment on above: Performed By: #### G LULS #### Point of Care testing , Calcium [Mass/volume] in Ser um or PlasmaOrdered By: PROVIDER TEMP on 06-14-2025 Calcium [Mass/Vol] 9.4 mg/dL Normal 8.6-10.3 [facility] Comment on above: Performed By: #### G МАРИЯLS #### Point of Care testing , Carbon dioxide, total [Moles /volume] in Serum or PlasmaOrdered By: PROVIDER TEMP on 06-14-2025 CO2 [Moles/Vol] 27.2 mmol/L Normal 21.0-31.0 [facility] Comment on above: Performed By: #### G LULS #### Point of Care testing , Chloride [Moles/volume] in S nikkie or PlasmaOrdered By: PROVIDER TEMP on 06-14-2025 Chloride [Moles/Vol] 105 mmol/L Normal 98-107 [facility] Comment on above: Performed By: #### G LULS #### Point of Care testing , Complete Blood Count Auto Di ffon 06-14-2025 Mean Corpuscular HGB Conc 32.2 g/dL Normal 32.0-35.0 [facility] Comment on above: Performed By: #### G LULS #### Point of Care testing , Monocytes/100 WBC (Bld) 19.88 % Normal 0.00-20.00 [facility] Comment on above: Performed By: #### G LULS #### Point of Care testing , NRBC% 0.1 /100{WBC} Normal 0-0.5 [facility] Comment on above: Performed By: #### G LULS #### Point of Care testing , White Blood Count 12.4 [CFU]/mL High 3.8-11.6 [facility] Comment on above: Performed By: #### G LULS #### Point of Care testing , Creatine kinase [Enzymatic a ctivity/volume] in Serum or PlasmaOrdered By: PROVIDER TEMP on 06-14-2025 CK [Catalytic activity/Vol] 50 U/L Normal 30-223 [facility] Comment on above: Performed By: #### G LULS #### Point of Care testing , Creatinine [Mass/volume] in Serum or PlasmaOrdered By: PROVIDER TEMP on 06-14-2025 Creatinine [Mass/Vol] 0.99 mg/dL Normal 0.60-1.20 [facility] Comment on above: Performed By: #### G LULS #### Point of Care testing , D-Dimer High Sensitivityon 0 06-14-2025 D-Dimer High Sensitivity <200 Normal 0-243 [facility] Comment on above: [...] coagulation studies. Please contact the laboratory at [phone] for redraw instructions. PERFORMED BY: [place] [address] PATHOLOGIST TABLEAU DEVELOPER CHANEL ROMERO M.D. Performed By: #### G LULS #### Point of Care testing , ECG 12 lead ECGon 06-14-2025 ECG 12 lead ECG [facility] [place] [address] Electrocardiograph Report Signed Patient: Noel Paul MR#: [id number] : 1990 Acct:[id number] Age/Sex: 34 / F ADM Date: 06/15/25 Loc: Room: [address] [place] [address] Type: ADM INOo Attending Dr: Neo Mclaughlin [...] By Marek Dennis DO 0300 Normal [facility] Eosinophils [#/volume] in Bl ood by Automated countOrdered By: PROVIDER TEMP on 06-14-2025 Eosinophils (Bld) [#/Vol] 0.3 10*3/uL Normal 0.0-0.45 [facility] Comment on above: Performed By: #### G LULS #### Point of Care testing , Eosinophils/100 leukocytes i n Blood by Automated countOrdered By: PROVIDER TEMP on 06-14-2025 Eosinophils/100 WBC (Bld) 2.8 % Normal . [facility] Comment on above: Performed By: #### G LULS #### Point of Care testing , Erythrocyte distribution wid th [Ratio] by Automated countOrdered By: PROVIDER TEMP on 06-14-2025 Erythrocyte distribution width (RBC) [Ratio] 16.5 % High 11.9-15.3 [facility] Comment on above: Performed By: #### G LULS #### Point of Care testing , Erythrocytes [#/volume] in B lood by Automated countOrdered By: PROVIDER TEMP on 06-14-2025 RBC (Bld) [#/Vol] 4.98 10*6/uL Normal 3.60-5.00 [facility] Comment on above: Performed By: #### G LULS #### Point of Care testing , Glucose [Mass/volume] in Ser um or PlasmaOrdered By: PROVIDER TEMP on 06-14-2025 Glucose [Mass/Vol] 143 mg/dL High 70-100 [facility] Comment on above: ADA recommended refe rence rangeRandom Glucose Reference Range is dependent on time and content of last meal. Glucose of more than 200 mg/dL in a nonstressed, ambulatory subject supports the diagnosis of Diabetes Mellitus. Result Comment: [place] om Glucose Reference Range is dependent on [...] (Bld) [Volume fraction] 38.6 % Normal 34.0-46.4 [facility] Comment on above: Performed By: #### G LULS #### Point of Care testing , Hemoglobin [Mass/volume] in BloodOrdered By: PROVIDER TEMP on 06-14-2025 Hemoglobin (Bld) [Mass/Vol] 12.4 g/dL Normal 11.8-15.4 [facility] Comment on above: Performed By: #### G LULS #### Point of Care testing , INR in Platelet poor plasma by Coagulation assayOrdered By: Marek Dennis on 06-14-2025 INR Coag (PPP) [Relative time] 1.0 {INR} Normal [facility] Comment on above: INR Therapeutic Rang [...] heart valves: 3 - 4.5 PERFORMED BY: [facility] [address] [place] [address] PATHOLOGIST TABLEAU DEVELOPER CHANEL ROMERO M.D. Performed By: #### G LULS #### Point of Care testing , Leukocytes [#/volume] correc ramos for nucleated erythrocytes in Blood by Automated counOrdered By: PROVIDER TEMP on 06-14-2025 WBC corrected for nucl RBC Auto (Bld) [#/Vol] 12.4 10*3/uL High 3.8-11.6 [facility] Leukocytes [#/volume] in Blo od by Automated countOrdered By: PROVIDER TEMP on 06-14-2025 WBC (Bld) [#/Vol] 12.4 10*3/uL High 3.8-11.6 [facility] Comment on above: Performed By: #### G BARAK #### Point of Care testing , Lymphocytes [#/volume] in Bl ood by Automated countOrdered By: PROVIDER TEMP on 06-14-2025 Lymphocytes (Bld) [#/Vol] 2.0 10*3/uL Normal 1.00-4.8 [facility] Comment on above: Performed By: #### G BARAK #### Point of Care testing , Lymphocytes/100 leukocytes i n Blood by Automated countOrdered By: PROVIDER TEMP on 06-14-2025 Lymphocytes/100 WBC (Bld) 15.9 % Normal . [facility] Comment on above: Performed By: #### G МАРИЯLS #### Point of Care testing , MCH [Entitic mass] by Automa ramos countOrdered By: PROVIDER TEMP on 06-14-2025 MCH (RBC) [Entitic mass] 25.0 pg Normal 24.7-34.3 [facility] Comment on above: Performed By: #### G BARAK #### Point of Care testing , MCHC Auto (RBC) [Mass/Vol]Or dered By: PROVIDER TEMP on 06-14-2025 MCHC (RBC) [Mass/Vol] 32.2 g/dL 32.0-35.0 [facility] MCV [Entitic volume] by Auto mated countOrdered By: PROVIDER TEMP on 06-14-2025 MCV (RBC) [Entitic vol] 77.6 fL Low 80-100 [facility] Comment on above: Performed By: #### G МАРИЯLS #### Point of Care testing , Monocyte distribution width [Entitic volume] in Blood by AutomatedOrdered By: PROVIDER TEMP on 06-14-2025 Monocyte distribution width Auto (Bld) [Entitic vol] 19.88 % 0.00-20.00 [facility] Monocytes [#/volume] in Bloo d by Automated countOrdered By: PROVIDER TEMP on 06-14-2025 Monocytes (Bld) [#/Vol] 0.6 10*3/uL Normal 0.0-0.8 [facility] Comment on above: Performed By: #### G LULS #### Point of Care testing , Monocytes/100 leukocytes in Blood by Automated countOrdered By: PROVIDER TEMP on 06-14-2025 Monocytes/100 WBC (Bld) 5.2 % Normal . [facility] Comment on above: Performed By: #### G LULS #### Point of Care testing , Neutrophils [#/volume] in Bl ood by Automated countOrdered By: PROVIDER TEMP on 06-14-2025 Neutrophils (Bld) [#/Vol] 9.3 10*3/uL High 1.8-7.7 [facility] Comment on above: Performed By: #### G LULS #### Point of Care testing , Neutrophils/100 leukocytes i n Blood by Automated countOrdered By: PROVIDER TEMP on 06-14-2025 Neutrophils/100 WBC (Bld) 74.7 % Normal . [facility] Comment on above: Performed By: #### G LULS #### Point of Care testing , No Panel InformationOrdered By: PROVIDER TEMP on 06-14-2025 Estimated GFR (CKD-EPI) > 60.0 mL/Min [facility] Creatinine Clearance (Chem 109.28 [facility] Nucleated erythrocytes [Pres ence] in Blood by Automated countOrdered By: PROVIDER TEMP on 06-14-2025 Nucleated RBC Auto Ql (Bld) 0.1 /100{WBC} 0-0.5 [facility] Platelet mean volume [Entiti c volume] in Blood by Automated countOrdered By: PROVIDER TEMP on 06-14-2025 Platelet mean volume (Bld) [Entitic vol] 7.5 fL Normal 6.3-10.7 [facility] Comment on above: Performed By: #### G LULS #### Point of Care testing , Platelets [#/volume] in Bloo d by Automated countOrdered By: PROVIDER TEMP on 06-14-2025 Platelets (Bld) [#/Vol] 361 10*3/uL Normal 150-450 [facility] Comment on above: Performed By: #### G LULS #### Point of Care testing , Potassium [Moles/volume] in Serum or PlasmaOrdered By: PROVIDER TEMP on 06-14-2025 Potassium [Moles/Vol] 3.7 mmol/L Normal 3.5-5.1 [facility] Comment on above: Performed By: #### G LULS #### Point of Care testing , Prothrombin time (PT)Ordered By: Marek Dennis on 06-14-2025 PT Coag (PPP) [Time] 11.5 s Normal 9.0-12.9 [facility] Comment on above: A hematocrit value g reater than 55% may lead to inaccurate results in coagulation testing. Patients having hematocrit values >55% require a special collection tube for coagulation studies. Please contact the laboratory at [phone] for redraw instructions. Result Comment: A he matocrit value greater than 55% may lead to inaccurate results in coagulation testing. Patients having hematocrit values >55% require a special collection tube for coagulation studies. Please contact the laboratory at [phone] for redraw instructions. Performed By: #### G LULS #### Point of Care testing , Serum or plasma anion gap de terminationOrdered By: PROVIDER TEMP on 06-14-2025 Anion gap [Moles/Vol] 11.5 mmol/L Normal 6.0-15.0 [facility] Comment on above: Performed By: #### G LULS #### Point of Care testing , Sodium [Moles/volume] in Ser um or PlasmaOrdered By: PROVIDER TEMP on 06-14-2025 Sodium [Moles/Vol] 140 mmol/L Normal 136-145 [facility] Comment on above: Performed By: #### G LULS #### Point of Care testing , Troponin I High Sensitivityo n 06-14-2025 Troponin I High Sensitivity 3 Normal 0-15 [facility] Comment on above: Result Comment: The Troponin units of report have been changed to meet the Chest Pain Accreditation requirement, element EC5.M1l2. Troponin units are changed from pg/ml to ng/L. Also, the decimal is removed and results are in whole numbers. PERFORMED BY: [place] [address] PATHOLOGIST TABLEAU DEVELOPER CHANEL ROMERO M.D. Performed By: #### G LULS #### Point of Care testing , Urea nitrogen [Mass/volume] in Serum or PlasmaOrdered By: PROVIDER ABRAHAN on 06-14-2025 Urea nitrogen [Mass/Vol] 16 mg/dL Normal 06-21 [facility] Comment on above: Performed By: #### G LULS #### Point of Care testing , X-ray reportOrdered By: Fermín Wilks on 06-14-2025 Study report [facility] Main [place] [id number] XRay Report Signed Patient: Noel Paul MR#: [id number] : 1990 Acct:[id number] Age/Sex: 34 / F ADM Date: 5 [...] Wilks M.D. 06/14/2025 10:57 PM Dictation Location: [facility]- Transcribed By: [facility] 06/14/252256 Dictated By: Fermín Wilks II, MD 06/14/252255 Signed By: 06/14/252256 [facility] Work Phone: XR chest 2V*on 06-14-2025 XR chest 2V* [facility] [address] [place] [address] [place] [address] XRay Report Signed Patient: Noel Paul MR#: [id number] : 1990 Acct:[id number] Age/Sex: 34 / F ADM Date: 06/14/25 [...] Wilks M.D. 06/14/2025 10:57 PM Dictation Location: [place] [address] Transcribed By: [facility] 06/14/252256 Dictated By: Fermín Wilks II, MD 06/14/252255 Signed By: 06/14/252256 Normal [facility] MR Ankle - right WO contrast on 06-06-2025 IMPRESSION: 1. Postoperative changes of posterior tibialis tendon reattachment with marked thickening of the distal tendon probably due to degeneration or postoperative scarring. No evidence of a complete tear. 2. Tenosynovitis at the master knot of Luis. 3. Chronic changes in the deltoid and spring ligaments as described. Harness Fitter: PSCB Transcribe Date/Time: Jun 06 2025 11:37A Dictated by : RADHA TYSON MD This examination was interpreted and the report reviewed and electronically signed by: KATIANA FLORES MD on Jun 06 2025 2:13PM [facility] DIVISION OF RADIOLOGY * * *Final Report* * * DATE OF EXAM: Jun 06 2025 8:43AM [facility] 0164 - MRI ANKLE WO IVCON RT [...] significant additional findings. DIVISION OF RADIOLOGY Provider, [facility] - 06/06/2025 * * *Final Report* * * DATE OF EXAM: Jun 06 2025 8:43AM [facility] 0164 - MRI ANKLE WO IVCON RT [...] the deltoid and spring ligaments as described. Harness Fitter: HERNÁN Transcribe Date/Time: Jun 06 2025 11:37A Dictated by : RADHA TYSON MD This examination was interpreted and the report reviewed and electronically signed by: KATIANA FLORES MD on Jun 06 2025 2:13PM EST [facility] Radiology Study observation (narrative) [facility] MR Ankle - right WO contrast Ordered By: Ccf Provider on 06-06-2025 [facility] MRI ANKLE WO IVCON RTon 05-28 MRI ANKLE WO IVCON RT * * *Final Report* * * DATE OF EXAM: Jun 06 2025 8:43AM [facility] 0164 - MRI ANKLE WO IVCON RT [...] the deltoid and spring ligaments as described. Harness Fitter: HERNÁN Transcribe Date/Time: Jun 06 2025 11:37A Dictated by : RADHA TYSON MD This examination was interpreted and the report reviewed and electronically signed by: KATIANA FLORES MD on Jun 06 2025 2:13PM EST [id number] [facility] C[facility] Telephone (LOORRM) ----- NOEL PAUL ([id number]) 1990 F [place] Date Time Provider Department 05/17/25 SEAN MATA During your visit today, we recorded the following information about you: Natalia Barrios, HAYES 05/17/2025 12:02 PM Signed Patients boot in no longer inflating or button is broken. Her mother will be coming in this way next week. She will bring the boot to change it out. [place] Allergies As of Date: 05/17/2025 Noted Allergy [...] by mouth once daily. - DEXCOM G7 SLP TEACHER 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 - DEXCOM G7 SENSOR [...] Encounter Status:Closed by NATALIA BARRIOS on 06/04/25 [facility] ZAINOVmahesh 05-16-2025 CNOV Office Visit (LOORRM ) ----- NOEL PAUL ([id number]) 1990 F [place] Date Time Provider Department 05/16/25 2:30 PM SEAN MATA During your visit today, we recorded the following information about you: Sean Mata DPM 05/16/2025 2:44 PM Signed Medical intake sheet from May 16, 2025 , was updated by patient, reviewed, and was made part of the patient's chart. Sean Mata DPM PRIMARY SERVICE: [facility] Podiatry SUBJECTIVE: Patient is seen today [...] tablet by mouth once daily. 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 DEXCOM G7 SENSOR [...] [M25.571, G89.29] Order(s):MRI ANKLE WO IVCON RIGHT [[id number]] Order #: [id number] FUTURE Prescriptions as of 05/16/2025 - keTORolac (TORADOL) 10 mg tablet Take 1 tablet by mouth every 6 hours as needed. with food. - aspirin 325 mg tablet Take 1 tablet by mouth once daily. - DEXCOM G7 SLP TEACHER 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 - DEXCOM G7 SENSOR [...] BMI 60. (more content not included)... Normal [facility] CNOV Office Visit (LOORRM ) ----- NOEL PAUL ([id number]) 1990 F [place] Date Time Provider Department [...] by mouth once daily. - DEXCOM G7 SLP TEACHER 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 - DEXCOM G7 SENSOR [...] Status:Closed by BEVERLY DOBSON on 05/16/25 Normal [facility] CNOVon 05-06-2025 CNOV Office Visit (LOORRM ) ----- NOEL PAUL ([id number]) 1990 F [place] Date Time Provider Department [...] by mouth once daily. - DEXCOM G7 SLP TEACHER 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 - DEXCOM G7 SENSOR [...] Encounter Status:Closed by BEVERLY DOBSON on 05/06/25 [facility] Additional Injections: R sub talar jointon [...] these instructions. Informed Consent Consent Obtained: Verbal Muddy Protocol A moment to CARE was completed. [...] the bedside nurse for hospitalized patients) applicable. [facility] CNOVon 04-25-2025 CNOV Office Visit (LOORRM ) ----- NOEL PAUL ([id number]) 1990 F [place] Date Time Provider Department [...] by mouth once daily. - DEXCOM G7 SLP TEACHER 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 - DEXCOM G7 SENSOR [...] Encounter Status:Closed by BEVERLY DOBSON on 04/25/25 [facility] CN Office Visit (RAYMONDORRM ) ----- NOEL PAUL ([id number]) 1990 F [place] Date Time Provider Department 04/25/25 2:00 PM SEAN MATA During your visit today, we recorded the following information about you: Sean Mata, SHITAL 04/25/2025 2:38 PM Signed PRIMARY SERVICE: [facility] Podiat[facility] SUBJECTIVE: Patient is seen today [...] by mouth once daily. - DEXCOM G7 SLP TEACHER 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 - DEXCOM G7 SENSOR [...] these instructions. Informed Consent Consent Obtained: Verbal Muddy Protocol A moment to CARE was completed. [...] right [M25.571] Order(s):Additional Injections: R subtalar joint [XXZ380] Order #: [id number] CAST DAVID LEG, SHORT(WALKING) [[id number]] Order #: [id number] [] BUPivacaine (PF) 0.5 % (5 mg/mL) 1 mL injectionDisp: Rfl: [] triamcinolone acetonide (more content not included)... Normal [facility] CNCOon 03-28-2025 CNCO Letter Text Normal [facility] CNOVon 03-14-2025 CNOV Office Visit (LOORRM ) ----- NOEL PAUL ([id number]) 1990 F [place] Date Time Provider Department 03/14/25 3:45 PM SEAN MATA LOORRM During your visit today, we recorded the following information about you: Sean Mata, DPMadi 03/14/2025 4:01 PM Signed PRIMARY SERVICE: [facility] SUBJECTIVE: Patient is seen today [...] for up to 10 days. 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 DEXCOM G7 SENSOR [...] [Z98.890] Order(s):XR FOOT GENERAL 3V AP/LAT/OBL RIGHT [[id number]] Order #: [id number] FUTURE XR FOOT GENERAL 3V AP/LAT/OBL RIGHT [[id number]] Order #: [id number] FUTURE Prescriptions as of 03/14/2025 - keTORolac (TORADOL) 10 mg tablet Take 1 tablet by mouth every 6 hours as needed. with food. - aspirin 325 mg tablet Take 1 tablet by mouth once daily. - DEXCOM G7 SLP TEACHER 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 - DEXCOM G7 SENSOR [...] BMI 6 (more content not included)... Normal [facility] XR FOOT 3V AP/LAT/OBL RTon 0 [...] interval change. IMPRESSION: No significant interval change. Harness Fitter: PSCB Transcribe Date/Time: Mar 14 2025 4:01P Dictated by : NEO PERLA MD This examination was interpreted and the report reviewed and electronically signed by: NEO PERLA MD on Mar 14 2025 4:02PM EST [id number] Normal [facility] XR Foot - right AP and Later al and obliqueon 03-14-2025 IMPRESSION: No significant interval change. Harness Fitter: HERNÁN Transcribe Date/Time: Mar 14 2025 4:01P Dictated by : NEO PERLA MD This examination was interpreted and the report reviewed and electronically signed by: NEO PERLA MD on Mar 14 2025 4:02PM [facility] DIVISION OF RADIOLOGY * * *Final [...] significant interval change. DIVISION OF RADIOLOGY Provider, [facility] - 03/14/2025 * * *Final Report* [...] change. IMPRESSION IMPRESSION: No significant interval change. Harness Fitter: HERNÁN Transcribe Date/Time: Mar 14 2025 4:01P Dictated by : NEO PERLA MD This examination was interpreted and the report reviewed and electronically signed by: NEO PERLA MD on Mar 14 2025 4:02PM EST [facility] Radiology Study observation (narrative) [facility] XR Foot - right AP and Later al and obliqueOrdered By: Ccf [facility] (ORQ) ----- MELCHORNOEL Tadeo ([id number]) 1990 F [place] Date Time Provider Department 02/20/25 SEAN MATA ORJose Carlos During your visit today, we recorded the following information about you: Marva Bhardwaj 02/20/2025 4:08 PM Signed Bonilla from [facility] PT Dept is calling Sean Mata DPM today to request weightbearing guide lines for patient PT [phone] ext [phone] FAX [phone] Patient has been identified by name and birthdate. Duration of symptoms: N/A Person calling: caregiver: Call patient at: [phone] (home) [phone] (cell) Was an appointment scheduled: No Closing statement: Results or non-symptom based questions: Thank you for calling [facility], your call will be returned [...] by mouth once daily. - DEXCOM G7 SLP TEACHER 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 - DEXCOM G7 SENSOR [...] Encounter Status:Closed by CHRIS BHATT on 02/20/25 [facility] CNOVon 02-13-2025 CNOV Office Visit (LOORRM ) ----- SUZINOEL ORTIZ ([id number]) 1990 F [place] Date Time Provider Department 02/13/25 9:45 AM SEAN MATA LOORRMadi During your visit today, we recorded the following information about you: Sean Mata, SHITAL 02/13/2025 10:05 AM Signed PRIMARY SERVICE: [facility] SUBJECTIVE: Patient is seen today [...] up to 10 days. - DEXCOM G7 SLP TEACHER 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 - DEXCOM G7 SENSOR [...] [Z98.890] Order(s):XR FOOT GENERAL 3V AP/LAT/OBL RIGHT [[id number]] Order #: [id number] FUTURE CONSULT TO PHYSICAL THERAPY [9021] Order #: [id number]: 1 FUTURE Prescriptions as of 02/13/2025 - keTORolac (TORADOL) 10 mg tablet Take 1 tablet by mouth every 6 hours as needed. with food. - aspirin 325 mg tablet Take 1 tablet by mouth once daily. - DEXCOM G7 SLP TEACHER 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 - DEXCOM G7 SENSOR [...] Date 02/13 (more content not included)... [facility] CNOV Office Visit (LOORRM ) ----- NOEL PAUL ([id number]) 1990 F [place] Date Time Provider Department 02/13/25 9:30 AM CAST TECH JOI [facility] During your visit today, we recorded the [...] by mouth once daily. - DEXCOM G7 SLP TEACHER 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 - DEXCOM G7 SENSOR [...] Status:Closed by BEVERLY DOBSON on 02/13/25 [facility] XR FOOT 3V AP/LAT/OBL RTon 0 [...] interval change. IMPRESSION: Postoperative findings, as described. Harness Fitter: PSCB Transcribe Date/Time: Feb 13 2025 9:26A Dictated by : MONALISA HOLGUIN MD This examination was interpreted and the report reviewed and electronically signed by: ANGELA VEGAS MD on Feb 13 2025 10:19AM EST [id number] [facility] XR Foot - right AP and Later al and obliqueon 02-13-2025 IMPRESSION: Postoperative findings, as described. Harness Fitter: [facility] Transcribe Date/Time: Feb 13 2025 [...] significant interval change. DIVISION OF RADIOLOGY Provider, [facility] - 02/13/2025 * * *Final Report* [...] change. IMPRESSION IMPRESSION: Postoperative findings, as described. Harness Fitter: PSCB Transcribe Date/Time: Feb 13 2025 9:26A Dictated by : MONALISA HOLGUIN MD This examination was interpreted and the report reviewed and electronically signed by: ANGELA VEGAS MD on Feb 13 2025 10:19AM EST [facility] Radiology Study observation (narrative) [facility] XR Foot - right AP and Later al and obliqueOrdered By: Ccf Provider on 02-13-2025 [facility] CNOVon 01-23-2025 CNOV Office Visit (LOORRM ) ----- NOEL PAUL ([id number]) 1990 F U[place] Date Time Provider Department 01/23/25 11:30 AM SEAN MATAORRMadi During your visit today, we recorded the following information about you: Sean Mata DPM 01/23/2025 11:47 AM Signed PRIMARY SERVICE: [facility] Podiatry SUBJECTIVE: Patient is seen today [...] for up to 10 days. 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 DEXCOM G7 SENSOR [...] [Q74.2] Order(s):XR FOOT GENERAL 3V AP/LAT/OBL RIGHT [[id number]] Order #: [id number] FUTURE PARKING FOR HANDICAPPED [[id number]] Order #: [id number] Prescriptions as of 01/23/2025 - keTORolac (TORADOL) 10 mg tablet Take 1 tablet by mouth every 6 hours as needed. with food. - aspirin 325 mg tablet Take 1 tablet by mouth once daily. - DEXCOM G7 SLP TEACHER 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 - DEXCOM G7 SENSOR [...] - oxyCOD (more content not included)... [facility] CNOV Office Visit (LOORRM ) ----- NOEL [id number]) 1990 F [place] Date Time Provider Department [...] by mouth once daily. - DEXCOM G7 SLP TEACHER 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 - DEXCOM G7 SENSOR [...] Status:Closed by BEVERLY DOBSON on 01/23/25 [facility] CNCOon 01-09-2025 CNCO Letter Text [facility] CNOVon 01-09-2025 CNOV Office Visit (LOORRM ) ----- NOEL PAUL ([id number]) 1990 F [place] Date Time Provider Department 01/09/25 10:15 AM SEAN MATA During your visit today, we recorded the following information about you: Sean Mata, SHITAL 01/09/2025 10:55 AM Signed PRIMARY SERVICE: [facility] Podiatry SUBJECTIVE: Patient is seen today for her first scheduled postop visit with her family present 9 days status post a revision of modified Kidner procedure of her right foot without complaints. Medical: PAST MEDICAL HISTORY Diagnosis Date Diabetes mellitus ([facility]) GERD (gastroesophageal reflux disease) Obesity AQUILES (obstructive [...] for up to 10 days. 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 DEXCOM G7 SENSOR [...] [Q74.2] Order(s):XR FOOT GENERAL 3V AP/LAT/OBL RIGHT [[id number]] Order #: [id number] FUTURE Prescriptions as of 01/09/2025 - keTORolac (TORADOL) 10 mg tablet Take 1 tablet by mouth every 6 hours as needed. with food. - aspirin 325 mg tablet Take 1 tablet by mouth once daily. - promethazine (PHENERGAN) 12.5 mg tablet Take 1 tablet by mouth every 8 hours as needed for up to 10 days. - DEXCOM G7 SLP TEACHER 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 - DEXCOM G7 SENSOR [...] Noted R (more content not included)... Normal [facility] Office Visit (LOORR ) ----- NOEL PAUL ([id number]) 1990 F [place] Date Time Provider Department [...] up to 10 days. - DEXCOM G7 SLP TEACHER 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 - DEXCOM G7 SENSOR [...] Status:Closed by SHAYLEE CONCEPCION on 01/09/25 [facility] CNPNon 01-02-2025 CNPN Telephone (LOORRM) ----- NOEL PAUL ([id number]) 1990 F [place] Date Time Provider Department 01/02/25 SEAN MATA During your visit today, we recorded the following information about you: Sean Mata DPM 01/02/2025 12:40 PM Signed Called patient at [phone] to return call regarding pain management. I [...] up to 5 days. - DEXCOM G7 SLP TEACHER 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 - DEXCOM G7 SENSOR [...] Encounter Status:Closed by SEAN MATA on 01/02/25 [facility] ANES POSTPROC EVALon 025 ANES POSTPROC EVAL HNO ID: [id number] Author: PETER BROWN MD Service: Anesthesiology Author Type: Anesthesiologist Type: Anesthesia Postprocedure Evaluation Filed: 12/31/2024 11:19 Note Text: POST ANESTHESIA EVALUATION NOTE : 1990 Procedure Summary Date: 12/31/24 Room / Location: [place] [address] / [facility] Anesthesia Start: 0738 Anesthesia Stop: [...] December 31, 2024 TIME: 11:19 AM CSN: [id number] [facility] ANES PRE-OPon 12-31-2024 ANES PRE-OP HNO ID: [id number] Author: PETER BROWN MD Service: Anesthesiology Author Type: Anesthesiologist Type: Anesthesia Preprocedure Evaluation Filed: 12/31/2024 07:32 Note Text: ANESTHESIOLOGY DAY OF SURGERY NOTE : 1990 Procedure Information Date/Time: 12/31/24729 Procedure: RECONSTRUCTION POSTERIOR TIBIAL TENDON W/EXCISION OF ACCESSORY TARSAL NAVICULAR BONE (Right: Foot) Location: [place] [address] / [facility] Surgeons: Sean Mata DPM Estimated [...] of 12/31/2024 Medication Sig - DEXCOM G7 SLP TEACHER 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 - DEXCOM G7 SENSOR [...] December 31, 2024 TIME: 7:31 AM CSN: [id number] [facility] BRIEF OP NOTon 12-31-2024 BRIEF OP NOT HNO ID: [id number] Author: SEAN MATA DPM Service: Podiatry Author Type: Physician Type: Brief Op Note Filed: 12/31/2024 09:42 Note Text: BRIEF OPERATIVE / PROCEDURE NOTE LOG ID: [id number] SURGERY/PROCEDURE DATE: 12/31/2024 INCISION/PROCEDURE START TIME: 8:16 AM INCISION CLOSE/PROCEDURE END TIME: SURGEON(S)/PROCEDURALIST( S) AND DISTRIBUTION FIELD ENGINEER(S): Surgeons and Role: * Sean Mata DPM [...] 2024 TIME: 9:39 AM [facility] Telephone (ORQ) ----- NOEL PAUL ([id number]) 1990 F [place] Date Time Provider Department [...] calling: self Call patient at: at home [phone] (home) [phone] (cell) Was an appointment scheduled: No Closing statement: Results or non-symptom based questions: Thank you for calling [facility], your call will be returned within the next business day. Karissa Torrez MA 12/31/2024 3:26 PM Signed Message has been sent directly to Dr Mata's phone. Sean Mata DPM 01/01/2025 3:53 PM Signed Called patient at her Lonnie's cell number at [phone] to check on postop progress. Received voicemail. [...] up to 5 days. - DEXCOM G7 SLP TEACHER 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 - DEXCOM G7 SENSOR [...] Status:Closed by SEAN MATA on 01/01/25 [facility] OPERATIVE NOon 12-31-2024 OPERATIVE NO HNO ID: [id number] Author: SEAN MATA DPM Service: Podiatry Author Type: Physician Type: Operative Report Filed: 01/24/2025 08:37 Note Text: [facility] - Operative Report [address] [address] [place] NOEL PAUL : 1990 AGE: 34. SEX: F PATIENT TYPE: OP HOSP SVC: ORTS LOCATION: [place] [address] ATTENDING PHYSICIAN: Sean Mata DPM CSN NUMBER: [id number] DATE OF SURGERY/PROCEDURE: 12/31/2024 INCISION/PROCEDURE START TIME: 8:16 a.m. INCISION CLOSE/PROCEDURE END TIME: 9:43 a.m. The procedure was performed in conjunction with the resident who was present in the operating room today under my direct supervision from skin to skin. PREOPERATIVE DIAGNOSIS: Painful remaining accessory navicular, right foot. POSTOPERATIVE DIAGNOSIS: Painful remaining accessory navicular, right foot. SURGEON: Sean Mata DPM DISTRIBUTION FIELD ENGINEER: Maurice Bernard D.P.M. SURGERY/PROCEDURE: Revisional modified Kidner procedure, right foot, CPT 94690. ANESTHESIA: General with a local field block consisting of 20 mL of 2% lidocaine plain. LOCATION: [facility]. HEMOSTASIS: Right pneumatic thigh tourniquet at [...] with a SutureTak, we then used some rfry-wih-cezg sutures distally to the distal (more content not included)... [facility] Pathology biopsy report Joseph (Tiss)on 12-31-2024 CASE REPORT [facility] Comment on above: Order Comment: Speci men Type: TISSUE SPECIMENOrdering Facility: [facility] Address: [address] [place] [address] Result Comment: Surg ical Pathology Report Case: [id number] Authorizing Provider: Sean Mata, Collected: 12/31/2024 09:51 AM DPM Ordering Location: Ambulatory Surgery Received: 12/31/2024 01:28 PM Pathologist: Shemra Pablo MD Specimen: Bone and Soft Tissue, right foot Performed By: #### 6 6121-5 ####[facility]ORATORYCLIA [id number] [place] [address] 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 LABCLIA [id number] [address] FINAL DIAGNOSIS [facility] Comment on above: Order Comment: Speci men Type: TISSUE SPECIMENOrdering Facility: [facility] Address: [address] [place] [address] Result Comment: A. B one, right foot, excision: - Osteocartilaginous tissue with degenerative changes and granulation tissue. Performed By: #### 6 6121-5 ####[facility]ENTER[facility] [id number] [place] [address] [facility] LABCLIA [id number] [address] STATES OF [facility] FINAL PERFORMING LAB Normal [facility] Comment on above: Order Comment: Speci men Type: TISSUE SPECIMENOrdering Facility: [facility] Address: [address] [place] [address] Result Comment: Diag nostic interpretation performed at: [facility], [address] [facility] [address] CLIA# [id number] Forensic Technician: Fermín Ojeda MD Performed By: #### 6 6121-5 ####[facility]ITAL[facility]IA [id number] [place] [address] [facility] LABCLIA [id number] [address] OF [place] DESCRIPTION Normal [facility] Comment on above: Order Comment: Speci men Type: TISSUE SPECIMENOrdering Facility: [facility] Address: [address] [place] [address] Result Comment: A. B one and Soft Tissue Received in formalin, labeled right foot are multiple irregular fragments of mccarthy, hard bone measuring 3 x 3 x 0.9 cm in aggregate. Sectioning reveals mccarthy, hard bone. No gross necrotic areas identified. Transplant Nurse sections are submitted in A1 following formic decalcification. KSZ January 01, 2025 10:57 AM Gross examination performed at [facility], [address] [facility], [place] [address] Performed By: #### 6 6121-5 ####[facility]ORATORYCLIA [id number] [facility] [place] [address] [facility] LABCLIA [id number] [facility] [id number] [id number] [facility] HISTORY PHYSICALon HISTORY PHYSICAL HNO ID: [id number] Author: ARY ROCHA APRN.IRENE Service: ? Author Type: Nurse Practitioner Type: H&P Filed: 12/28/2024 10:56 Note Text: [facility] HISTORY AND PHYSICAL EXAMINATION SERVICE DATE: 12/28/2024 SERVICE TIME: 10:08 AM PRIMARY CARE PHYSICIAN: Monique Emmanuel CNP, WELLHEAD PUMPER REASON FOR VISIT: Noel Paul is a [...] STOP-Bang Score: STOP-Bang Score: 0 (Awaiting CPAP) [id number] Score: Age: <65 Sex: female [id number] Score: ARISCAT Score: Age: <=50 Preoperative SpO2: [...] chart review and guidance on proceeding at [place]. Per Dr Goetz, patient may proceed as scheduled at [place] CONSULTS: Anesthesia Consult chart review The Following [...] 1 t (more content not included)... [facility] CNOVon 12-12-2024 CNOV Office Visit (LOORRM ) ----- MELCHORIVANI ([id number]) 1990 F [place] Date Time Provider Department 12/12/24 10:00 AM SEAN MATA During your visit today, we recorded the following information about you: Sean Mata DPM 12/12/2024 10:46 AM Signed [facility] Department of Orthopedics [facility] Orthopedic Surgery Name: Noel Paul Date [...] Current Outpatient Medications Medication Sig DEXCOM G7 SLP TEACHER 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 DEXCOM G7 SENSOR [...] Prescriptions as of 12/12/2024 - DEXCOM G7 SLP TEACHER 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 - DEXCOM G7 SENSOR [...] 1 CA (more content not included)... 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 - DEXCOM G7 SENSOR [...] Status:Closed by CATHY SANTANA on 12/12/24 [facility] XR FOOT 3V AP/LAT/OBL RTon 0 [...] unremarkable. IMPRESSION: No fracture or joint dislocation. Harness Fitter: HERNÁN Transcribe Date/Time: Dec 12 2024 9:37A Dictated by : LUX WILLETT MD This examination was interpreted and the report reviewed and electronically signed by: LUC AVILES MD on Dec 12 2024 11:47AM EST [id number] [facility] XR Foot - right AP and Later al and obliqueon 12-12-2024 IMPRESSION: No fracture or joint dislocation. Harness Fitter: PSCB Transcribe Date/Time: Dec 12 2024 9:37A [...] unremarkable. DIVISION OF RADIOLOGY Provider, Iris Bateman [facility] - 12/12/2024 * * *Final Report* [...] IMPRESSION IMPRESSION: No fracture or joint dislocation. [facility] Transcribe Date/Time: Dec 12 2024 9:37A Dictated by : LUX WILLETT MD This examination was interpreted and the report reviewed and electronically signed by: LUC AVILES MD on Dec 12 2024 11:47AM EST [facility] Radiology Study observation (narrative) [facility] XR Foot - right AP and Later al and obliqueOrdered By: Ccf Provider on 12-12-2024 [facility] 36on 12-04-2024 36 Spoke with patient a nd let her know that per Dr. Her she can bring the disc in and he will take a look at the images and let her know. [facility] 36on 12-03-2024 36 Patient would like t o know if she can get in earlier than her rescheduled appt since she had to cancel. Patient would like to drop off her MRI results sooner than her appt as well. Please advise at [phone] [facility] Telephoneon 12-03-2024 Telephone [id number] Noel Paul 1990 F Date Provider Department Center 12/03/2024 [id number] HURTADO MP ORTHO MPORTHO No family history on file Reason for Visit and Comments: Appointment [375] [facility] 36on 11-29-2024 36 LVM with patient yoni t she will need to bring disc in. Scheduled patient for Tuesday12/03/24 at 10:30 am [facility] 36 Patient would like t o know if she needs to make an appointment to bring in her MRI results or if you have received them? Engine Lathe Operator does not see them in the chart. Please advise at [phone] [facility] Office Visiton 11-26-2024 Follow-up visit [id number] Noel Paul 1990 Date Provider Department Center 11/26/2024 264-KAT HER MP ORTHO MPORTHO No family history on file Level of Service:78095 CO OFFICE/OUTPATIENT NEW LOW MDM 30 MINUTES (GC) Reason for Visit and Comments: Pain [136] [facility] 36on 11-23-2024 36 LVM to confirm appt [facility] Surgical Pathology Reporton 09-12-2024 Surgical Pathology Report [address] [address]- Surgical Pathology Report Collected Date/Time: 09/05/2024 08:32 [...] DIAGNOSIS. Addition of clinical information only. Normal [facility] Comment on above: Performed By: #### 4 [id number] #### [facility] [address] [place] [address] Surgical Pathology Reporton 09-11-2024 Surgical Pathology Report [address] [address]- Surgical Pathology Report Collected Date/Time: 09/05/2024 08:32 [...] examination performed unless gross only specified. Normal [facility] Comment on above: Performed By: #### 4 [id number] #### [facility] [address] [place] [address] Calcium [Mass/volume] in Ser um or PlasmaOrdered By: Sean Ruano on 05-16-2024 Calcium [Mass/Vol] 8.8 mg/dL 8.6-10.3 [facility] Carbon dioxide, total [Moles /volume] in Serum or PlasmaOrdered By: Sean Ruano on 05-16-2024 CO2 [Moles/Vol] 27.3 mmol/L 21.0-31.0 [facility] Chloride [Moles/volume] in S nikkie or PlasmaOrdered By: Sean Ruano on 05-16-2024 Chloride [Moles/Vol] 105 mmol/L 98-107 [facility] Creatinine [Mass/volume] in Serum or PlasmaOrdered By: Sean Ruano on 05-16-2024 Creatinine [Mass/Vol] 0.66 mg/dL 0.60-1.20 [facility] Glucose Glucometer (BldC) [M ass/Vol]Ordered By: Pato Avelar on 05-16-2024 Glucose [Mass/Vol] 106 mg/dL [facility] Comment on above: Random Glucose Refer ence Range is dependent on time and content of last meal. Glucose of more than 200 mg/dL in a nonstressed, ambulatory subject supports the diagnosis of Diabetes Mellitus. Glucose [Mass/volume] in Ser um or PlasmaOrdered By: Sean Ruano on 05-16-2024 Glucose [Mass/Vol] 107 mg/dL 70-100 [facility] Comment on above: ADA recommended refe rence rangeRandom Glucose Reference Range is dependent on time and content of last meal. Glucose of more than 200 mg/dL in a nonstressed, ambulatory subject supports the diagnosis of Diabetes Mellitus. HCG ( test) IA.rapi d Ql (U)Ordered By: Sean Ruano on 05-16-2024 HCG ( test) Ql (U) Negative [facility] No Panel InformationOrdered By: Pato Avelar on 05-16-2024 Bedside Glucose Comment Glu2: cleaned meter [facility] No Panel InformationOrdered By: Sean Ruano on 05-16-2024 Estimated GFR (CKD-EPI) > 60.0 mL/Min [facility] Creatinine Clearance (Chem 161.75 [facility] Potassium [Moles/volume] in Serum or PlasmaOrdered By: Sean Ruano on 05-16-2024 Potassium [Moles/Vol] 3.8 mmol/L 3.5-5.1 [facility] Serum or plasma anion gap de terminationOrdered By: Sean Ruano on 05-16-2024 Anion gap [Moles/Vol] 9.5 mmol/L 6.0-15.0 [facility] Sodium [Moles/volume] in Ser um or PlasmaOrdered By: Sean Ruano on 05-16-2024 Sodium [Moles/Vol] 138 mmol/L 136-145 [facility] Urea nitrogen [Mass/volume] in Serum or PlasmaOrdered By: Sean Ruano on 05-16-2024 Urea nitrogen [Mass/Vol] 17 mg/dL 06-21 [facility] CBC w/ Auto Diffon 4 Basophils/100 WBC (Bld) 0.5 % Normal 0.0-2.0 [facility] Comment on above: Performed By: #### 2 [id number] #### [facility] [address] [place] [address] Basophils/Leukocytes Auto (Bld) [Pure # fraction] 0.1 E9/L Normal 0.0-0.2 [facility] Comment on above: Performed By: #### 2 [id number] #### [facility] [address] [place] [address] Eosinophils (Bld) [#/Vol] 0.3 E9/L Normal 0.0-0.5 [facility] Comment on above: Performed By: #### 2 [id number] #### [facility] [address] [place] [address] Eosinophils/100 WBC (Bld) 2.9 % Normal 0.0-8.0 [facility] Comment on above: Performed By: #### 2 158429 #### [facility] [address] [place] [address] Erythrocyte distribution width (RBC) [Ratio] 15.6 % High 10.9-14.2 [facility] Comment on above: Performed By: #### 2 849076 #### [facility] [address] [place] [address] Hematocrit (Bld) [Volume fraction] 39.9 % Normal 34.0-46.0 [facility] Comment on above: Performed By: #### 2 788828 #### [facility] [address] [place] [address] Hemoglobin (Bld) [Mass/Vol] 12.8 g/dL Normal 12.0-16.0 [facility] Comment on above: Performed By: #### 2 435295 #### [facility] [address] [place] [address] Lymphocytes (Bld) [#/Vol] 2.3 E9/L Normal 1.0-4.0 [facility] Comment on above: Performed By: #### 2 682573 #### [facility] [address] [place] [address] Lymphocytes/100 WBC (Bld) 20.9 % Normal 14.0-50.0 [facility] Comment on above: Performed By: #### 2 781675 #### [facility] [address] [place] [address] MCH (RBC) [Entitic mass] 25.4 pg Low 27.0-34.0 [facility] Comment on above: Performed By: #### 2 134051 #### [facility] [address] [place] [address] MCHC (RBC) [Mass/Vol] 32.2 g/dL Normal 31.4-36.0 [facility] Comment on above: Performed By: #### 2 265105 #### [facility] [address] [place] [address] MCV (RBC) [Entitic vol] 79.0 fL Low 80.0-100.0 [facility] Comment on above: Performed By: #### 2 028679 #### [facility] [address] [place] [address] Monocytes (Bld) [#/Vol] 0.7 E9/L Normal 0.2-1.0 [facility] Comment on above: Performed By: #### 2 962333 #### [facility] [address] [place] [address] Neutrophils (Bld) [#/Vol] 7.7 E9/L High 2.0-7.5 [facility] Comment on above: Performed By: #### 2 937561 #### [facility] [address] [place] [address] Neutrophils/100 WBC (Bld) 69.3 % Normal 36.0-75.0 [facility] Comment on above: Performed By: #### 2 412879 #### [facility] [address] [place] [address] Platelet mean volume (Bld) [Entitic vol] 8.3 fL Normal 6.4-10.8 [facility] Comment on above: Performed By: #### 2 449535 #### [facility] [address] [place] [address] Platelets (Bld) [#/Vol] 346.0 E9/L Normal 150.0-500. 0 [facility] Comment on above: Performed By: #### 2 231027 #### [facility] [address] [place] [address] RBC (Bld) [#/Vol] 5.1 E12/L Normal 4.3-5.9 [facility] Comment on above: Performed By: #### 2 104826 #### [facility] [address] [place] [address] WBC corrected for nucl RBC Auto (Bld) [#/Vol] 11.1 E9/L High 4.0-11.0 [facility] Comment on above: Performed By: #### 2 068603 #### [facility] [address] [place] [address] Consent for Treatmenton 03-29 Consent for Treatment [id number] Normal [facility] HEMATOLOGYOrdered By: SYSTEM SYSTEM on [...] Remisol Heme Physician Orderon 04-18-2024 Physician Order [id number] Normal [facility] GLYCOHEMOGLOBIN A1Con 2022 ADA RECOMMENDATION SEE BELOW Normal [facility] Comment on above: Result Comment: ADA RECOMMENDED LIMIT 4.0 - 6.0 ADA THERAPEUTIC TARGET < 7.0 ACTION SUGGESTED > 7.0 Performed By: #### A 1C #### [facility] [address] [place] [address] Dr. Benito Dupree Glucose [Mass/Vol] 105 mg/dL Normal [facility] Comment on above: Performed By: #### A 1C #### [facility] [address] [address] [address] Benito Dupree HbA1c (Bld) [Mass fraction] 5.3 % Normal 4.5-6.2 [facility] Comment on above: Performed By: #### A 1C #### [facility] [address] [place] [address] Dr. Benito Dupree [facility]on SARS-CoV-2 (COVID-19) RNA MUKUND+probe Ql (Unsp spec) Not detected Normal NOT DETECTED [facility] Comment on above: Result Comment: This test is not yet approved or cleared by the [place] FDA. When there are no FDA-approved or cleared tests available, and other criteria are met, FDA can make tests available under an emergency access mechanism called an Emergency Use Authorization (EUA). The EUA for this test is supported by the [place] of Health and Human Service's (HHS's) declaration [...] By: #### C VDTBH #### [facility] [address] [place] [address] Dr. Benito Dupree INFLUENZA A AND B AGon 01-05 INFLUANEGH SEE BELOW Normal [facility] Comment on above: Result Comment: Nega tive for Flu A protein angiten. Infection due to Flu A cannot be ruled out. Flu A angiten in the sample may be below the detection limit of the test. Performed By: #### I NFLUAB #### [facility] [address] [place] [address] Dr. Benito Dupree INFLUBNEG SEE BELOW Normal [facility] Comment on above: Result Comment: Nega tive for Flu B protein antigen. Infection due to Flu B cannot be ruled out. Flu B antigen in the sample may be below the detection limit of the test. Performed By: #### I NFLUAB #### [facility] [address] [place] [address] Dr. Benito Dupree INFLUENZA A AG Negative Normal NEGATIVE SEE COMMENT [facility] Comment on above: Performed By: #### I NFLUAB #### [facility] [address] [place] [address] Dr. Benito Dupree INFLUENZA B AG Negative Normal NEGATIVE SEE COMMENT [facility] Comment on above: Performed By: #### I NFLUAB #### [facility] [address] [place] [address] Dr. Benito Dupree GLYCOHEMOGLOBIN A1Con 2021 ADA RECOMMENDATION SEE BELOW Normal [facility] Comment on above: Result Comment: ADA RECOMMENDED LIMIT 4.0 - 6.0 ADA THERAPEUTIC TARGET < 7.0 ACTION SUGGESTED > 7.0 Performed By: #### A 1C #### [facility] [address] [place] [address] Dr. Benito Dupree Glucose [Mass/Vol] 143 mg/dL Normal [facility] Comment on above: Performed By: #### A 1C #### [facility] [address] [address] [address] Benito Dupree HbA1c (Bld) [Mass fraction] 6.6 % Critically high 4.5-6.2 [facility] Comment on above: Performed By: #### A 1C #### [facility] [address] [address] [address] Benito Dupree LIPID PROFILEon 11-15-2022 CHOL-HDL RATIO NORM SEE BELOW Normal [facility] Comment on above: Result Comment: 3.3 - 4.4 LOW RISK 4.4 - 7.1 AVERAGE RISK 7.1 - 11.0 MODERATE RISK >11.0 HIGH RISK Performed By: #### I NFLUAB #### [facility] [address] [address] [address] Benito Dupree Cholesterol [Mass/Vol] 154 mg/dL Normal <=200 [facility] Comment on above: Performed By: #### I NFLUAB #### [facility] [address] [address] [address] Benito Dupree Cholesterol in HDL [Mass/Vol] 29 mg/dL Critically low 40-60 [facility] Comment on above: Performed By: #### I NFLUAB #### [facility] [address] [address] [address] Benito Dupree Cholesterol in LDL [Mass/Vol] 98.2 mg/dL Normal [facility] Comment on above: Performed By: #### I NFLUAB #### [facility] [address] [address] [address] Benito Dupree Cholesterol.total/Chol esterol in HDL [Mass ratio] 5.3 {ratio} Normal [facility] Comment on above: Performed By: #### I NFLUAB #### [facility] [address] [address] [address] Benito Dupree HDL NORMAL > or = 60 mg/dl - LO W CARDIOVASCULAR RISK <40 mg/dl - HIGH CARDIOVASCULAR RISK Normal [facility] Comment on above: Performed By: #### I NFLUAB #### [facility] [address] [address] [address] Benito Dupree LDL CALC NORMAL SEE BELOW Normal [facility] Comment on above: Result Comment: <100 mg/dl OPTIMAL 100 - 129 mg/dl NEAR OR ABOVE OPTIMAL 130 - 159 mg/dl BORDERLINE HIGH 160 - 189 mg/dl HIGH >190 mg/dl VERY HIGH Performed By: #### I NFLUAB #### [facility] [address] [place] [address] Dr. Benito Dupree Triglyceride [Mass/Vol] 134 mg/dL Normal <=150 [facility] Comment on above: Performed By: #### I NFLUAB #### [facility] [address] [place] [address] Dr. Benito Dupree VLDL CALC 26.8 mg/dL Normal [facility] Comment on above: Performed By: #### I NFLUAB #### [facility] [address] [address] [address] Benito Dupree INSULINon 08-19-2022 Insulin 24.3 uIU/mL Normal 2.6-24.9 [facility] Comment on above: Performed By: #### I NFLUAB #### [facility] [address] [place] [address] Dr. Benito Dupree T4, T3U, FTI LABCORPon 08-19 Free Thyroxine Index 2.6 Normal 1.2-4.9 [facility] Comment on above: Performed By: #### T HYLC #### [facility] [address] [place] [address] Dr. Benito Dupree T3 Uptake 29 % Normal 24-39 [facility] Comment on above: Performed By: #### T HYLC #### [facility] [address] [address] [address] Benito Dupree T4 [Mass/Vol] 8.8 ug/dL Normal 4.5-12.0 [facility] Comment on above: Performed By: #### T HYLC #### [facility] [address] [address] [address] Benito Dupree CBC AUTO DIFFon 08-18-2022 BASO # 0.1 103/ul Normal 0.0-0.1 [facility] Comment on above: Performed By: #### I NFLUAB #### [facility] [address] [place] [address] Dr. Benito Dupree Basophils/100 WBC (Bld) 0.8 % Normal 0.2-2.0 [facility] Comment on above: Performed By: #### I NFLUAB #### [facility] [address] [place] [address] Dr. Benito Dupree EO # 0.3 103/ul Normal 0.0-0.7 [facility] Comment on above: Performed By: #### I NFLUAB #### [facility] [address] [place] [address] Dr. Benito Dupree Eosinophils/100 WBC (Bld) 2.8 % Normal 0.9-7.0 [facility] Comment on above: Performed By: #### I NFLUAB #### [facility] [address] [place] [address] Dr. Benito Dupree Erythrocyte distribution width (RBC) [Ratio] 15.4 % Critically high 11.0-15.0 [facility] Comment on above: Performed By: #### I NFLUAB #### [facility] [address] [place] [address] Dr. Benito Dupree Hematocrit (Bld) [Volume fraction] 43.7 % Normal 36.0-48.0 [facility] Comment on above: Performed By: #### I NFLUAB #### [facility] [address] [place] [address] Dr. Benito Dupree Hemoglobin (Bld) [Mass/Vol] 14.2 g/dL Normal 12.0-16.0 [facility] Comment on above: Performed By: #### I NFLUAB #### [facility] [address] [place] [address] Dr. Benito Dupree IG # 0.08 10e3/ul Critically high 0.00-0.03 [facility] Comment on above: Performed By: #### I NFLUAB #### [facility] [address] [address] [address] Benito Dupree IG % 0.9 % Critically high 0.0-0.5 [facility] Comment on above: Performed By: #### I NFLUAB #### [facility] [address] [address] [address] Benito Dupree LYMPH # 2.3 103/ul Normal 1.2-3.8 [facility] Comment on above: Performed By: #### I NFLUAB #### [facility] [address] [address] [address] Benito Dupree Lymphocytes/100 WBC (Bld) 24.3 % Normal 20.5-60.0 [facility] Comment on above: Performed By: #### I NFLUAB #### [facility] [address] [address] [address] Benito Dupree MANUAL DIFF REQ NO Normal [facility] Comment on above: Performed By: #### I NFLUAB #### [facility] [address] [address] [address] Benito Dupree MCH (RBC) [Entitic mass] 26.1 pg Critically low 26.7-34.0 [facility] Comment on above: Performed By: #### I NFLUAB #### [facility] [address] [address] [address] Benito Dupree MCHC (RBC) [Mass/Vol] 32.5 g/dL Normal 29.9-35.2 [facility] Comment on above: Performed By: #### I NFLUAB #### [facility] [address] [address] [address] Benito Dupree MCV (RBC) [Entitic vol] 80.2 fL Critically low 81.0-99.0 [facility] Comment on above: Performed By: #### I NFLUAB #### [facility] [address] [address] [address] Benito Dupree MONO # 0.5 103/ul Normal 0.3-0.8 [facility] Comment on above: Performed By: #### I NFLUAB #### [facility] [address] [address] [address] Benito Dupree Monocytes/100 WBC (Bld) 5.2 % Normal 1.7-12.0 [facility] Comment on above: Performed By: #### I NFLUAB #### [facility] [address] [address] [address] Benito Dupree NEUT # 6.1 103/ul Normal 1.4-6.5 [facility] Comment on above: Performed By: #### I NFLUAB #### [facility] [address] [place] [address] Dr. Benito Dupree Neutrophils/100 WBC (Bld) 66.0 % Normal 43.0-75.0 [facility] Comment on above: Performed By: #### I NFLUAB #### [facility] [address] [place] [address] Dr. Benito Dupree Platelet mean volume (Bld) [Entitic vol] 9.9 fL Normal 9.5-13.5 [facility] Comment on above: Performed By: #### I NFLUAB #### [facility] [address] [place] [address] Dr. Benito Dupree PLT 291 103/ul Normal 150-450 [facility] Comment on above: Performed By: #### I NFLUAB #### [facility] [address] [place] [address] Dr. Benito Dupree RBC 5.45 106/ul Critically high 4.20-5.40 [facility] Comment on above: Performed By: #### I NFLUAB #### [facility] [address] [place] [address] Dr. Benito Dupree WBC 9.3 103/ul Normal 4.0-11.0 [facility] Comment on above: Performed By: #### I NFLUAB #### [facility] [address] [place] [address] Dr. Benito Dupree DIRECT LDLon 08-18-2022 Cholesterol in LDL [Mass/Vol] 50 mg/dL Normal [facility] Comment on above: Performed By: #### T HYLC #### [facility] [address] [address] [address] Benito Dupree DLDL NORMAL SEE BELOW Normal [facility] Comment on above: Result Comment: <100 mg/dl OPTIMAL 100 - 129 mg/dl NEAR OR ABOVE OPTIMAL 130 - 159 mg/dl BORDERLINE HIGH 160 - 189 mg/dl HIGH >190 mg/dl VERY HIGH Performed By: #### T HYLC #### [facility] [address] [address] [address] Benito Dupree GLYCOHEMOGLOBIN A1Con 2021 ADA RECOMMENDATION SEE BELOW Normal [facility] Comment on above: Result Comment: ADA RECOMMENDED LIMIT 4.0 - 6.0 ADA THERAPEUTIC TARGET < 7.0 ACTION SUGGESTED > 7.0 Performed By: #### A 1C #### [facility] [address] [address] [address] Benito Dupree Glucose [Mass/Vol] 332 mg/dL Normal [facility] Comment on above: Performed By: #### A 1C #### [facility] [address] [address] [address] Benito Dupree HbA1c (Bld) [Mass fraction] 13.2 % Critically high 4.5-6.2 [facility] Comment on above: Performed By: #### A 1C #### [facility] [address] [place] [address] Dr. Benito Dupree IRONon 08-18-2022 Iron [Mass/Vol] 53.0 ug/dL Normal 50.0-170.0 [facility] Comment on above: Performed By: #### I NFLUAB #### [facility] [address] [address] [address] Benito Dupree LIPID PROFILEon 08-18-2022 CHOL-HDL RATIO NORM SEE BELOW Normal [facility] Comment on above: Result Comment: 3.3 - 4.4 LOW RISK 4.4 - 7.1 AVERAGE RISK 7.1 - 11.0 MODERATE RISK >11.0 HIGH RISK Performed By: #### T HYLC #### [facility] [address] [address] [address] Benito Dupree Cholesterol [Mass/Vol] 260 mg/dL Critically high <=200 [facility] Comment on above: Performed By: #### T HYLC #### [facility] [address] [address] [address] Benito Dupree Cholesterol in HDL [Mass/Vol] 23 mg/dL Critically low 40-60 [facility] Comment on above: Performed By: #### T HYLC #### [facility] [address] [address] [address] Benito Dupree Cholesterol.total/Chol esterol in HDL [Mass ratio] 11.3 {ratio} Normal [facility] Comment on above: Performed By: #### T HYLC #### [facility] [address] [place] [address] Dr. Benito Dupree HDL NORMAL > or = 60 mg/dl - LO W CARDIOVASCULAR RISK <40 mg/dl - HIGH CARDIOVASCULAR RISK Normal [facility] Comment on above: Performed By: #### T HYLC #### [facility] [address] [address] [address] Benito Dupree Triglyceride [Mass/Vol] 1711 mg/dL Critically high <=150 [facility] Comment on above: Performed By: #### T HYLC #### [facility] [address] [place] [address] Dr. Benito Dupree VLDL CALC 342.2 mg/dL Normal [facility] Comment on above: Performed By: #### T HYLC #### [facility] [address] [address] [address] Benito Dupree PROF 14(COMP METB)on 022 Albumin [Mass/Vol] 3.2 g/dL Critically low 3.4-5.0 [facility] Comment on above: Performed By: #### T HYLC #### [facility] [address] [address] [address] Benito Dupree Albumin/Globulin [Mass ratio] 0.7 {ratio} Normal [facility] Comment on above: Performed By: #### T HYLC #### [facility] [address] [address] [address] Benito Dupree ALP [Catalytic activity/Vol] 92 U/L Normal 46-116 [facility] Comment on above: Performed By: #### T HYLC #### [facility] [address] [place] [address] Dr. Benito Dupree ALT [Catalytic activity/Vol] 41 U/L Normal 14-59 [facility] Comment on above: Performed By: #### T HYLC #### [facility] [address] [address] [address] Benito Dupree Anion gap [Moles/Vol] 14.1 mmol/L Normal Th [facility] Comment on above: Performed By: #### T HYLC #### [facility] [address] [place] [address] Dr. Benito Dupree AST [Catalytic activity/Vol] 16 U/L Normal 15-37 [facility] Comment on above: Performed By: #### T HYLC #### [facility] [address] [place] [address] Dr. Benito Dupree Bilirubin [Mass/Vol] 0.9 mg/dL Normal 0.2-1.0 [facility] Comment on above: Performed By: #### T HYLC #### [facility] [address] [place] [address] Dr. Benito Dupree Calcium [Mass/Vol] 9.1 mg/dL Normal 8.5-10.1 [facility] Comment on above: Performed By: #### T HYLC #### [facility] [address] [place] [address] Dr. Benito Dupree Chloride [Moles/Vol] 97 mmol/L Critically low 98-107 [facility] Comment on above: Performed By: #### T HYLC #### [facility] [address] [address] [address] Benito Dupree CO2 [Moles/Vol] 24.9 mmol/L Normal 21.0-32.0 [facility] Comment on above: Performed By: #### T HYLC #### [facility] [address] [place] [address] Dr. Benito Dupree Creatinine [Mass/Vol] 0.67 mg/dL Normal 0.55-1.02 [facility] Comment on above: Performed By: #### T HYLC #### [facility] [address] [place] [address] Dr. Benito Dupree EGFR-AF ALGERIAN >60 Normal >=60 [facility] Comment on above: Performed By: #### T HYLC #### [facility] [address] [address] [address] Benito Dupree EGFR-NON AF ALGERIAN >60 Normal >=60 [facility] Comment on above: Performed By: #### T HYLC #### [facility] [address] [place] [address] Dr. Benito Dupree Globulin (S) [Mass/Vol] 4.6 g/dL Normal [facility] Comment on above: Performed By: #### T HYLC #### [facility] [address] [place] [address] Dr. Benito Dupree Glucose [Mass/Vol] 402 mg/dL Critically high 74-106 [facility] Comment on above: Performed By: #### T HYLC #### [facility] [address] [place] [address] Dr. Benito Dupree Potassium [Moles/Vol] 4.0 mmol/L Normal 3.5-5.1 [facility] Comment on above: Performed By: #### T HYLC #### [facility] [address] [place] [address] Dr. eBnito Dupree Protein [Mass/Vol] 7.8 g/dL Normal 6.4-8.2 [facility] Comment on above: Performed By: #### T HYLC #### [facility] [address] [place] [address] Dr. Benito Dupree Sodium [Moles/Vol] 132 mmol/L Critically low 136-145 [facility] Comment on above: Performed By: #### T HYLC #### [facility] [address] [place] [address] Dr. Benito Dupree Urea nitrogen [Mass/Vol] 10.0 mg/dL Normal 7.0-18.0 [facility] Comment on above: Performed By: #### T HYLC #### [facility] [address] [place] [address] Dr. Benito Dupree Urea nitrogen/Creatinine [Mass ratio] 14.9 mg/mg Normal [facility] Comment on above: Performed By: #### T HYLC #### [facility] [address] [place] [address] Dr. Benito Dupree TSHon 08-18-2022 TSH 3.676 uIU/mL Normal 0.358-3.74 0 [facility] Comment on above: Performed By: #### T HYLC #### [facility] [address] [place] [address] Dr. Benito Dupree VITAMIN D 25 OHon 08-18-2022 VIT D 25-OH 13.9 ng/mL Normal [facility] Comment on above: Performed By: #### I NFLUAB #### [facility] [address] [place] [address] Dr. Benito Dupree VIT D RANGES SEE BELOW Normal [facility] Comment on above: Result Comment: <20 ng/mL Vit D deficient 20 - <30 ng/mL Vit D insufficient 30 - 100 ng/mL Vit D sufficient >100 ng/mL Potential Toxicity Performed By: #### I NFLUAB #### [facility] [address] [place] [address] Dr. Benito Dupree AMYLASEon 06-01-2022 Amylase [Catalytic activity/Vol] 29 U/L Normal 25-115 [facility] Comment on above: Performed By: #### I NFLUAB #### [facility] [address] [place] [address] Dr. Benito Dupree CBC AUTO DIFFon 06-01-2022 BASO # 0.1 103/ul Normal 0.0-0.1 [facility] Comment on above: Performed By: #### I NFLUAB #### [facility] [address] [place] [address] Dr. Benito Dupree Basophils/100 WBC (Bld) 0.5 % Normal 0.2-2.0 [facility] Comment on above: Performed By: #### I NFLUAB #### [facility] [address] [place] [address] Dr. Benito Dupree EO # 0.3 103/ul Normal 0.0-0.7 [facility] Comment on above: Performed By: #### I NFLUAB #### [facility] [address] [place] [address] Dr. Benito Dupree Eosinophils/100 WBC (Bld) 2.0 % Normal 0.9-7.0 [facility] Comment on above: Performed By: #### I NFLUAB #### [facility] [address] [place] [address] Dr. Benito Dupree Erythrocyte distribution width (RBC) [Ratio] 15.3 % Critically high 11.0-15.0 [facility] Comment on above: Performed By: #### I NFLUAB #### [facility] [address] [place] [address] Dr. Benito Dupree Hematocrit (Bld) [Volume fraction] 41.5 % Normal 36.0-48.0 [facility] Comment on above: Performed By: #### I NFLUAB #### [facility] [address] [place] [address] Dr. Benito Dupree Hemoglobin (Bld) [Mass/Vol] 12.7 g/dL Normal 12.0-16.0 [facility] Comment on above: Performed By: #### I NFLUAB #### [facility] [address] [place] [address] Dr. Benito Dupree IG # 0.06 10e3/ul Critically high 0.00-0.03 [facility] Comment on above: Performed By: #### I NFLUAB #### [facility] [address] [place] [address] Dr. Benito Dupree IG % 0.4 % Normal 0.0-0.5 [facility] Comment on above: Performed By: #### I NFLUAB #### [facility] [address] [place] [address] Dr. Benito Dupree LYMPH # 1.9 103/ul Normal 1.2-3.8 [facility] Comment on above: Performed By: #### I NFLUAB #### [facility] [address] [place] [address] Dr. Benito Dupree Lymphocytes/100 WBC (Bld) 13.9 % Critically low 20.5-60.0 [facility] Comment on above: Performed By: #### I NFLUAB #### [facility] [address] [place] [address] Dr. Benito Dupree MANUAL DIFF REQ NO Normal [facility] Comment on above: Performed By: #### I NFLUAB #### [facility] [address] [place] [address] Dr. Benito Dupree MCH (RBC) [Entitic mass] 24.7 pg Critically low 26.7-34.0 [facility] Comment on above: Performed By: #### I NFLUAB #### [facility] [address] [place] [address] Dr. Benito Dupree MCHC (RBC) [Mass/Vol] 30.6 g/dL Normal 29.9-35.2 [facility] Comment on above: Performed By: #### I NFLUAB #### [facility] [address] [place] [address] Dr. Benito Dupree MCV (RBC) [Entitic vol] 80.6 fL Critically low 81.0-99.0 [facility] Comment on above: Performed By: #### I NFLUAB #### [facility] [address] [place] [address] Dr. Benito Dupree MONO # 0.5 103/ul Normal 0.3-0.8 [facility] Comment on above: Performed By: #### I NFLUAB #### [facility] [address] [place] [address] Dr. Benito Dupree Monocytes/100 WBC (Bld) 4.0 % Normal 1.7-12.0 [facility] Comment on above: Performed By: #### I NFLUAB #### [facility] [address] [place] [address] Dr. Benito Dupree NEUT # 10.6 103/ul Critically high 1.4-6.5 [facility] Comment on above: Performed By: #### I NFLUAB #### [facility] [address] [place] [address] Dr. Benito Dupree Neutrophils/100 WBC (Bld) 79.2 % Critically high 43.0-75.0 [facility] Comment on above: Performed By: #### I NFLUAB #### [facility] [address] [place] [address] Dr. Benito Dupree Platelet mean volume (Bld) [Entitic vol] 9.3 fL Critically low 9.5-13.5 [facility] Comment on above: Performed By: #### I NFLUAB #### [facility] [address] [place] [address] Dr. Benito Dupree PLT 391 103/ul Normal 150-450 [facility] Comment on above: Performed By: #### I NFLUAB #### [facility] [address] [place] [address] Dr. Benito Dupree RBC 5.15 106/ul Normal 4.20-5.40 [facility] Comment on above: Performed By: #### I NFLUAB #### [facility] [address] [place] [address] Dr. Benito Dupree WBC 13.4 103/ul Critically high 4.0-11.0 [facility] Comment on above: Performed By: #### I NFLUAB #### [facility] [address] [place] [address] ABD/PELV W CONon [...] Date: 2022-06-01 14:59 Normal [facility] ER URINE PROFILEon 2 Bilirubin Ql (U) Negative Normal NEGATIVE [facility] Comment on above: Performed By: #### U MICRO, ERUR #### [facility] [address] [place] [address] Dr. Benito Dupree Clarity (U) SL CLOUDY Abnormal CLEAR [facility] Comment on above: Performed By: #### U MICRO, ERUR #### [facility] [address] [place] [address] Dr. Benito Dupree Color (U) YELLOW Normal YELLOW [facility] Comment on above: Performed By: #### U MICRO, ERUR #### [facility] [address] [address] [address] Benito Dupree ERUAHD A micrscopic examina tion will be performed if indicated. Normal [facility] Comment on above: Performed By: #### U MICRO, ERUR #### [facility] [address] [place] [address] Dr. Benito Dupree Glucose Ql (U) Negative Normal NEGATIVE [facility] Comment on above: Performed By: #### U MICRO, ERUR #### [facility] [address] [place] [address] Dr. Benito Dupree Hemoglobin Ql (U) LARGE Abnormal NEGATIVE [facility] Comment on above: Performed By: #### U MICRO, ERUR #### [facility] [address] [place] [address] Dr. Benito Dupree Ketones Ql (U) Negative Normal NEGATIVE [facility] Comment on above: Performed By: #### U MICRO, ERUR #### [facility] [address] [place] [address] Dr. Benito Dupree LEUKOCYTES Negative Normal NEGATIVE [facility] Comment on above: Performed By: #### U MICRO, ERUR #### [facility] [address] [place] [address] Dr. Benito Dupree Nitrite Ql (U) Negative Normal NEGATIVE [facility] Comment on above: Performed By: #### U MICRO, ERUR #### [facility] [address] [place] [address] Dr. Benito Dupree pH (U) 5.5 [pH] Normal 5-9 [facility] Comment on above: Performed By: #### U MICRO, ERUR #### [facility] [address] [place] [address] Dr. Benito Dupree SPEC GRAVITY 1.010 Normal 1.005-<=1. 025 [facility] Comment on above: Performed By: #### U MICRO, ERUR #### [facility] [address] [place] [address] Dr. Benito Dupree UA PROTEIN TRACE Normal NEGATIVE/ TRACE [facility] Comment on above: Performed By: #### U MICRO, ERUR #### [facility] [address] [address] [address] Benito Dupree UR MICRO IND INDICATED Normal [facility] Comment on above: Performed By: #### U MICRO, ERUR #### [facility] [address] [place] [address] Dr. Benito Dupree Urobilinogen Qn (U) 1.0 {Tuyet'U}/dL Normal 0.2 - 1. 0 [facility] Comment on above: Performed By: #### U MICRO, ERUR #### [facility] [address] [place] [address] Dr. Benito Dupree LACTATE/LACTIC ACIDon 2021 Lactate [Moles/Vol] 1.1 mmol/L Normal 0.4-1.9 [facility] Comment on above: Performed By: #### L ACT #### [facility] [address] [place] [address] Dr. Benito Dupree LIPASEon 06-01-2022 Lipase [Catalytic activity/Vol] 111.0 U/L Normal 73.0-393.0 [facility] Comment on above: Performed By: #### I NFLUAB #### [facility] [address] [place] [address] Dr. Benito Dupree PREG HCG QUALon 06-01-2022 , QUAL Negative Normal NEGATIVE [facility] Comment on above: Performed By: #### P REG #### [facility] [address] [place] [address] Dr. Benito Dupree PROF 14(COMP METB)on 022 Albumin [Mass/Vol] 3.6 g/dL Normal 3.4-5.0 [facility] Comment on above: Performed By: #### I NFLUAB #### [facility] [address] [place] [address] Dr. Benito Dupree Albumin/Globulin [Mass ratio] 0.7 {ratio} Normal [facility] Comment on above: Performed By: #### I NFLUAB #### [facility] [address] [place] [address] Dr. Benito Dupree ALP [Catalytic activity/Vol] 90 U/L Normal 46-116 [facility] Comment on above: Performed By: #### I NFLUAB #### [facility] [address] [place] [address] Dr. Benito Dupree ALT [Catalytic activity/Vol] 39 U/L Normal 14-59 [facility] Comment on above: Performed By: #### I NFLUAB #### [facility] [address] [place] [address] Dr. Benito Dupree Anion gap [Moles/Vol] 13.0 mmol/L Normal [facility] Comment on above: Performed By: #### I NFLUAB #### [facility] [address] [address] [address] Benito Dupree AST [Catalytic activity/Vol] 25 U/L Normal 15-37 [facility] Comment on above: Performed By: #### I NFLUAB #### [facility] [address] [address] [address] Benito Dupree Bilirubin [Mass/Vol] 1.1 mg/dL Critically high 0.2-1.0 [facility] Comment on above: Performed By: #### I NFLUAB #### [facility] [address] [address] [address] Benito Dupree Calcium [Mass/Vol] 9.4 mg/dL Normal 8.5-10.1 [facility] Comment on above: Performed By: #### I NFLUAB #### [facility] [address] [address] [address] Benito Dupree Chloride [Moles/Vol] 99 mmol/L Normal 98-107 [facility] Comment on above: Performed By: #### I NFLUAB #### [facility] [address] [address] [address] Benito Dupree CO2 [Moles/Vol] 27.3 mmol/L Normal 21.0-32.0 [facility] Comment on above: Performed By: #### I NFLUAB #### [facility] [address] [address] [address] Benito Durpee Creatinine [Mass/Vol] 0.87 mg/dL Normal 0.55-1.02 [facility] Comment on above: Performed By: #### I NFLUAB #### [facility] [address] [place] [address] Dr. Benito Dupree EGFR-AF ALGERIAN >60 Normal >=60 [facility] Comment on above: Performed By: #### I NFLUAB #### [facility] [address] [address] [address] Benito Dupree EGFR-NON AF ALGERIAN >60 Normal >=60 [facility] Comment on above: Performed By: #### I NFLUAB #### [facility] [address] [address] [address] Benito Dupree Globulin (S) [Mass/Vol] 4.8 g/dL Normal [facility] Comment on above: Performed By: #### I NFLUAB #### [facility] [address] [address] [address] Benito Dupree Glucose [Mass/Vol] 218 mg/dL Critically high 74-106 [facility] Comment on above: Performed By: #### I NFLUAB #### [facility] [address] [address] [address] Benito Dupree Potassium [Moles/Vol] 4.1 mmol/L Normal 3.5-5.1 [facility] Comment on above: Performed By: #### I NFLUAB #### [facility] [address] [place] [address] Dr. Benito Dupree Protein [Mass/Vol] 8.4 g/dL Critically high 6.4-8.2 [facility] Comment on above: Performed By: #### I NFLUAB #### [facility] [address] [place] [address] Dr. Benito Dupree Sodium [Moles/Vol] 135 mmol/L Critically low 136-145 [facility] Comment on above: Performed By: #### I NFLUAB #### [facility] [address] [place] [address] Dr. Benito Dupree Urea nitrogen [Mass/Vol] 15.0 mg/dL Normal 7.0-18.0 [facility] Comment on above: Performed By: #### I NFLUAB #### [facility] [address] [place] [address] Dr. Benito Dupree Urea nitrogen/Creatinine [Mass ratio] 17.2 mg/mg Normal [facility] Comment on above: Performed By: #### I NFLUAB #### [facility] [address] [place] [address] Dr. Benito Dupree URINE MICROSCOPIC ONLYon BACTERIA TRACE Abnormal NONE SEEN [facility] Comment on above: Performed By: #### U MICRO, ERUR #### [facility] [address] [address] [address] Benito Dupree Bacteria identified Cx Nom (U) NOT INDICATED Normal [facility] Comment on above: Performed By: #### U MICRO, ERUR #### [facility] [address] [address] [address] Benito Dupree CAST NONE SEEN Normal NONE SEEN [facility] Comment on above: Performed By: #### U MICRO, ERUR #### [facility] [address] [address] [address] Benito Dupree Crystals LM Nom (Urine sed) NONE SEEN Normal NONE SEEN [facility] Comment on above: Performed By: #### U MICRO, ERUR #### [facility] [address] [address] [address] Benito Dupree Epithelial cells LM Ql (Urine sed) MODERATE Abnormal NONE SEEN /RARE [facility] Comment on above: Performed By: #### U MICRO, ERUR #### [facility] [address] [address] [address] Benito Dupree MUCOUS TRACE Abnormal NONE SEEN [facility] Comment on above: Performed By: #### U MICRO, ERUR #### [facility] [address] [address] [address] Benito Dupree RBC 2-5 Abnormal 0-2 [facility] Comment on above: Performed By: #### U MICRO, ERUR #### [facility] [address] [address] [address] Benito Dupree WBC 0-2 Abnormal NONE SEEN [facility] Comment on above: Performed By: #### U MICRO, ERUR #### [facility] [address] [address] [address] Benito Dupree XR hand RT min 3V*on 022 XR hand RT min 3V* [facility] [employer] Other XR hand RT min 3V* [facility] [employer] Other XR hand RT min 3V* [address] [employer] Other XR hand RT min 3V* YOMAIRA Yadav [address] [employer] Other XR hand RT min 3V* XRay Report [employer] Other XR hand RT min 3V* Signed [employer] Other XR hand RT min 3V* Patient: Noel Paul MR#: [id number] [employer] Other XR hand RT min 3V* : 1990 Acct:[id number] [employer] Other XR hand RT min 3V* Age/Sex: 31 / F ADM Date: 03/22/22 [employer] Other XR hand RT min 3V* Loc: XDUCLY Room: pe: [facility] [employer] Other XR hand RT min 3V* Attending Dr: Monique SANDOVAL [employer] Other XR hand RT min 3V* Ordering Provider: LORI Woodard [employer] Other XR hand RT min 3V* Date of Service: 03/22/22 [employer] Other XR hand RT min 3V* XR/XR hand RT min 3V*: Finger pain, right [employer] Other XR hand RT min 3V* Copies to: LORI Dias [employer] Other XR hand RT min 3V* [address] ain film [employer] Other XR hand RT min 3V* COMPARISON:None [email or web address] Other XR hand RT min 3V* HISTORY:Fell going upstairs. RIGHT ring finger injury. [employer] Other XR hand RT min 3V* No fracture, disloca tion or focal soft tissue abnormality seen. [employer] Other XR hand RT min 3V* X R/XR hand RT min 3V* [employer] Other XR hand RT min 3V* IMPRESSION:No acute findings [employer] Other XR hand RT min 3V* Impression dictated by: Ta Galvan M.D.03/22/2022 4:42 PM [employer] Other XR hand RT min 3V* Dictation Location: [place] [address] [employer] Other XR hand RT min 3V* Transcribed By: [facility] 03/22/22 [facility] [employer] Other XR hand RT min 3V* Dictated By: Glenn Galvan DO 03/22/22 [facility] [employer] Other XR hand RT min 3V* Signed By: [employer] Other XR hand RT min 3V* 03/22/[address] [place] [address] [employer] Other Vital Signs Date Time Vital Sign Value Performing Clinician Facility 2025 14:15-0400 Body height 157.48 cm Monique Emmanuel NP-C Work Phone: [facility] 2025 14:15-0400 Body mass index (BMI) [Ratio] 62.4 kg/m2 Monique Emmanuel [employer] Work Phone: [facility] 2025 14:15-0400 Body weight 154.67 kg Monique Emmanuel [employer] Work Phone: [facility] 2025 14:15-0400 Diastolic blood pressure 80 mm[Hg] Monique Emmanuel [employer] Work Phone: [facility] 2025 14:15-0400 Heart rate 86 /min Monique Lien [employer] Work Phone: [facility] 2025 14:15-0400 Respiratory rate 18 /min Monique Lien [employer] Work Phone: [facility] 2025 14:15-0400 SaO2% (BldA) [Mass fraction] 97 % Monique Lien [employer] Work Phone: [facility] 2025 14:15-0400 Systolic blood pressure 114 mm[Hg] Monique Lien [employer] Work Phone: [facility] 06-16-2025 11:26-0400 Body temperature 98 [degF] Monique Lien [employer] Work Phone: [facility] 06-16-2025 11:26-0400 Diastolic blood pressure 85 mm[Hg] Monique Lien [employer] Work Phone: [facility] 06-16-2025 11:26-0400 Heart rate 78 /min Monique Lien [employer] Work Phone: [facility] 06-16-2025 11:26-0400 Respiratory rate 20 /min Monique Lien [employer] Work Phone: [facility] 06-16-2025 11:26-0400 SaO2% (BldA) [Mass fraction] 93 % Monique Lien [employer] Work Phone: [facility] 06-16-2025 11:26-0400 Systolic blood pressure 124 mm[Hg] Monique Lien [employer] Work Phone: [facility] 06-16-2025 06:00-0400 Body weight 152 kg Monique Lien [employer] Work Phone: [facility] 06-15-2025 03:55-0400 Body height 157.48 cm Monique Lien [employer] Work Phone: [facility] 06-15-2025 03:00-0400 Diastolic blood pressure 58 mm[Hg] Monique Whitleymer [employer] Work Phone: [facility] 06-15-2025 03:00-0400 Heart rate 80 /min Monique Lien [employer] Work Phone: [facility] 06-15-2025 03:00-0400 Inhaled oxygen flow rate 2 L/min Monique Whitleymer [employer] Work Phone: [facility] 06-15-2025 03:00-0400 Respiratory rate 18 /min Monique Lien [employer] Work Phone: [facility] 06-15-2025 03:00-0400 SaO2% (BldA) [Mass fraction] 98 % Moniquegisselle Whitleymer [employer] Work Phone: [facility] 06-15-2025 03:00-0400 Systolic blood pressure 126 mm[Hg] Monique Whitleymer [employer] Work Phone: [facility] 06-14-2025 22:16-0400 Body height 157.48 cm Monique Lien [employer] Work Phone: [facility] 06-14-2025 22:16-0400 Body temperature 98.9 [degF] Monique Lien [employer] Work Phone: [facility] 06-14-2025 22:16-0400 Body weight 145.14 kg Monique Whitleymer [employer] Work Phone: [facility] 03-21-2025 14:16-0400 Body height 157.5 cm Pato Avelar DPM Work Phone: [facility] 03-21-2025 14:16-0400 Body mass index (BMI) [Ratio] 56.7 kg/m2 Pato Avelar DPM Work Phone: [facility] 03-21-2025 14:16-0400 Body weight 140.62 kg Pato Avelar DPM Work Phone: [facility] 03-21-2025 14:16-0400 Respiratory rate 16 /min Pato Avelar DPM Work Phone: [facility] 03-07-2025 09:06-0400 Body height 157.5 cm Pato Avelar DPM Work Phone: [facility] 03-07-2025 09:06-0400 Body mass index (BMI) [Ratio] 56.7 kg/m2 Pato Avelar DPM Work Phone: [facility] 03-07-2025 09:06-0400 Body weight 140.62 kg Pato Avelar DPM Work Phone: [facility] 03-07-2025 09:06-0400 Respiratory rate 16 /min Pato Avelar DPM Work Phone: [facility] 02-05-2025 17:00-0400 Body height 157.48 cm [facility] 02-05-2025 17:00-0400 Body mass index (BMI) [Ratio] 59.2 kg/m2 [facility] 02-05-2025 17:00-0400 Body temperature 98.2 [degF] [facility] 02-05-2025 17:00-0400 Body weight 146.96 kg [facility] 02-05-2025 17:00-0400 Diastolic blood pressure 91 mm[Hg] [facility] 02-05-2025 17:00-0400 Heart rate 82 /min [facility] 02-05-2025 17:00-0400 Respiratory rate 18 /min [facility] 02-05-2025 17:00-0400 SaO2% (BldA) [Mass fraction] 98 % [facility] 02-05-2025 17:00-0400 Systolic blood pressure 151 mm[Hg] [facility] 12-28-2024 09:54-0500 Body height 157.5 cm Pacc 3 Work Phone: [facility] 12-28-2024 09:54-0500 Body mass index (BMI) [Ratio] 62.06 kg/m2 [facility] Work Phone: [facility] 12-28-2024 09:54-0500 Body temperature 97.39 [degF] [facility] Work Phone: [facility] 12-28-2024 09:54-0500 Body weight 153.9 kg Pacc 3 Work Phone: [facility] 12-28-2024 09:54-0500 Diastolic blood pressure 73 mm[Hg] [facility] 3 Work Phone: [facility] 12-28-2024 09:54-0500 Heart rate 104 /min P[facility] 3 Work Phone: [facility] 12-28-2024 09:54-0500 Respiratory rate 16 /min [facility] 3 Work Phone: [facility] 12-28-2024 09:54-0500 SaO2% (BldA) [Mass fraction] 98 % [facility] Work Phone: [facility] 12-28-2024 09:54-0500 Systolic blood pressure 130 mm[Hg] [facility] 3 Work Phone: [facility] 10-24-2024 14:24-0500 Body height 157.5 cm Pato Brown DPM Work Phone: [facility] 10-24-2024 14:24-0500 Body mass index (BMI) [Ratio] 56.7 kg/m2 Pato Brown DPM Work Phone: [facility] 10-24-2024 14:24-0500 Body weight 140.62 kg Pato Brown DPM Work Phone: [facility] 10-24-2024 14:24-0500 Respiratory rate 18 /min Pato Brown DPM Work Phone: [facility] 10-04-2024 14:48-0500 Body height 157.5 cm Pato Brown DPM Work Phone: [facility] 10-04-2024 14:48-0500 Body mass index (BMI) [Ratio] 56.7 kg/m2 Pato Avelar DPM Work Phone: [facility] 10-04-2024 14:48-0500 Body weight 140.62 kg Pato Avelar DPM Work Phone: [facility] 10-04-2024 14:48-0500 Diastolic blood pressure 79 mm[Hg] Pato Avelar DPM Work Phone: [facility] 10-04-2024 14:48-0500 Heart rate 82 /min Pato Avelar DPM Work Phone: [facility] 10-04-2024 14:48-0500 Systolic blood pressure 129 mm[Hg] Pato Avelar DPM Work Phone: [facility] 09-20-2024 14:37-0400 Body height 157.5 cm Pato Avelar DPM Work Phone: [facility] 09-20-2024 14:37-0400 Body mass index (BMI) [Ratio] 56.7 kg/m2 Pato Avelar DPM Work Phone: [facility] 09-20-2024 14:37-0400 Body weight 140.62 kg Pato Avelar DPM Work Phone: [facility] 09-20-2024 14:37-0400 Diastolic blood pressure 77 mm[Hg] Pato Avelar DPM Work Phone: [facility] 09-20-2024 14:37-0400 Heart rate 79 /min Pato Avelar DPM Work Phone: [facility] 09-20-2024 14:37-0400 Systolic blood pressure 126 mm[Hg] Pato Avelar DPM Work Phone: [facility] 09-13-2024 14:46-0400 Body height 157.5 cm Pato Avelar DPM Work Phone: [facility] 09-13-2024 14:46-0400 Body mass index (BMI) [Ratio] 56.7 kg/m2 Pato Brown DPM Work Phone: [facility] 09-13-2024 14:46-0400 Body weight 140.62 kg Pato Avelar DPM Work Phone: [facility] 09-13-2024 14:46-0400 Diastolic blood pressure 78 mm[Hg] Pato Avelar DPM Work Phone: [facility] 09-13-2024 14:46-0400 Heart rate 85 /min Pato Avelar DPM Work Phone: [facility] 09-13-2024 14:46-0400 Systolic blood pressure 123 mm[Hg] Pato Avelar DPM Work Phone: [facility] 08-30-2024 14:58-0400 Body height 157.5 cm Pato Avelar DPM Work Phone: [facility] 08-30-2024 14:58-0400 Body mass index (BMI) [Ratio] 56.7 kg/m2 Pato Avelar DPM Work Phone: [facility] 08-30-2024 14:58-0400 Body weight 140.62 kg Pato Avelar DPM Work Phone: [facility] 08-30-2024 14:58-0400 Diastolic blood pressure 80 mm[Hg] Pato Avelar DPM Work Phone: [facility] 08-30-2024 14:58-0400 Heart rate 75 /min Pato Avelar DPM Work Phone: [facility] 08-30-2024 14:58-0400 Respiratory rate 18 /min Pato Avelar DPM Work Phone: [facility] 08-30-2024 14:58-0400 Systolic blood pressure 128 mm[Hg] Pato Avelar DPM Work Phone: [facility] 08-02-2024 14:52-0400 Body height 157.5 cm Pato Brown DPM Work Phone: [facility] 08-02-2024 14:52-0400 Body mass index (BMI) [Ratio] 56.7 kg/m2 Pato Avelar DPM Work Phone: [facility] 08-02-2024 14:52-0400 Body weight 140.62 kg aPto Avelar DPM Work Phone: [facility] 08-02-2024 14:52-0400 Diastolic blood pressure 79 mm[Hg] Pato Avelar DPM Work Phone: [facility] 08-02-2024 14:52-0400 Heart rate 82 /min Pato Avelar DPM Work Phone: [facility] 08-02-2024 14:52-0400 Systolic blood pressure 127 mm[Hg] Pato Avelar DPM Work Phone: [facility] 07-24-2024 14:58-0400 Body height 157.5 cm Jaime Biedenbach DO Work Phone: [facility] 07-24-2024 14:58-0400 Body mass index (BMI) [Ratio] 56.7 kg/m2 Jaime Biedenbach DO Work Phone: [facility] 07-24-2024 14:58-0400 Body weight 140.62 kg Jaime Biedenbach DO Work Phone: [facility] 05-16-2024 15:25-0400 Diastolic blood pressure 70 mm[Hg] [employer] Monique Lien Work Phone: [facility] 05-16-2024 15:25-0400 Heart rate 80 /min [employer] Monique Lien Work Phone: [facility] 05-16-2024 15:25-0400 Respiratory rate 22 /min [employer] Monique Lien Work Phone: [facility] 05-16-2024 15:25-0400 SaO2% (BldA) [Mass fraction] 94 % [employer] Monique Lien Work Phone: [facility] 05-16-2024 15:25-0400 Systolic blood pressure 124 mm[Hg] [employer] Monique Emmanuel Work Phone: [facility] 05-16-2024 12:57-0400 Body temperature 98.6 [degF] [employer] Monique Emmanuel Work Phone: [facility] 05-16-2024 12:57-0400 Inhaled oxygen flow rate 6 L/min [employer] Monique Emmanuel Work Phone: [facility] 05-16-2024 10:38-0400 Body mass index (BMI) [Ratio] 56.5 kg/m2 [employer] Monique Emmanuel Work Phone: [facility] 05-16-2024 10:31-0400 Body height 157.48 cm [employer] Monique Emmanuel Work Phone: [facility] 05-16-2024 10:31-0400 Body weight 140.16 kg [employer] Monique Emmanuel Work Phone: [facility] 04-25-2024 13:27-0400 Diastolic blood pressure 85 mm[Hg] Pato Avelar [facility] 04-25-2024 13:27-0400 Heart rate 64 /min Pato Avelar [facility] 04-25-2024 13:27-0400 Mean blood pressure 103 mm[Hg] Pato Avelar [facility] 04-25-2024 13:27-0400 Systolic blood pressure 139 mm[Hg] Pato Avelar [facility] 04-25-2024 13:26-0400 Heart rate 65 /min Pato Avelar [facility] 04-25-2024 13:26-0400 Respiratory rate 16 /min Pato Avelar [facility] 04-25-2024 13:26-0400 SaO2% (BldA) [Mass fraction] 93 % Pato Avelar [facility] 04-25-2024 13:26-0400 Blood Pressure Location Pato Avelar [facility] 04-25-2024 13:26-0400 Body temperature 98.42 [degF] Pato Avelar [facility] 04-25-2024 13:26-0400 Diastolic blood pressure 83 mm[Hg] Pato Avelar [facility] 04-25-2024 13:26-0400 Mean blood pressure 100 mm[Hg] Pato Avelar [facility] 04-25-2024 13:26-0400 Systolic blood pressure 135 mm[Hg] Pato Avelar [facility] 02-27-2024 17:36-0400 Body height 154.94 cm [employer] Monique Emmanuel Work Phone: [facility] 02-27-2024 17:36-0400 Body mass index (BMI) [Ratio] 58.4 kg/m2 [employer] Monique Emmanuel Work Phone: [facility] 02-27-2024 17:36-0400 Body temperature 97.7 [degF] [employer] Monique Emmanuel Work Phone: [facility] 02-27-2024 17:36-0400 Body weight 140.38 kg [employer] Monique Whitleymer Work Phone: [facility] 02-27-2024 17:36-0400 Heart rate 87 /min [employer] Monique Whitleymer Work Phone: [facility] 02-27-2024 17:36-0400 Respiratory rate 18 /min [employer] Monique Lien Work Phone: [facility] 02-27-2024 17:36-0400 SaO2% (BldA) [Mass fraction] 97 % [employer] Monique Emmanuel Work Phone: [facility] 03-22-2022 16:45-0400 Body height 154.94 cm Monique Dudley Other [facility] Other 03-22-2022 16:45-0400 Body mass index (BMI) [Ratio] 58.38 kg/m2 Monique Dudley Other [facility] Other 03-22-2022 16:45-0400 Body temperature 97.9 [degF] Monique Dudley Other [facility] Other 03-22-2022 16:45-0400 Body weight 140.16 kg Monique Dudley Other [facility] Other 03-22-2022 16:45-0400 Diastolic blood pressure 93 mm[Hg] Monique Dudley Other [facility] Other 03-22-2022 16:45-0400 Respiratory rate 20 /min Monique Dudley Other [facility] Other 03-22-2022 16:45-0400 SaO2% (BldA) [Mass fraction] 98 % Monique Dudley Other [facility] Other 03-22-2022 16:45-0400 Systolic blood pressure 154 mm[Hg] Monique Octavia Other [facility] Other Encounters Encounter Date Encounter Type Care Provider Facility Start: 2025 End: 2025 ambulatory Monique Emmanuel [employer] MGR[employer]C Work Phone: [facility] Work Phone: Start: 2025 End: 2025 Patient encounter procedure Inge Adler MD -[facility] Cardiology Work Phone: Start: 06-15-2025 End: 06-16-2025 ambulatory Monique Emmanuel Facility:[facility] Start: 06-15-2025 Evaluation and manag ement of inpatient Neo Mclaughlin MD -[facility] Work Phone: Start: 06-15-2025 Non-patient / Non-visit Inge abbott MD -[facility] Cardiology Work Phone: Start: 06-15-2025 observation encounter Monique Spencer marisa Emmanuel [employer]WORK MGR[employer]C Work Phone: [facility] Work Phone: Start: 06-11-2025 End: 06-11-2025 ambulatory MONIQUE EMMANUEL Facility:[facility] Start: 06-11-2025 End: 06-11-2025 Admission to same day surgery center Sean Mata DPM Work Phone: Orthopaedics Comment on above: S/P foot surgery, ri ght (Primary Dx); Chronic pain of right ankle Start: 06-11-2025 End: 06-11-2025 Telemedicine consultation with patient Sean Mata DPM Work Phone: Orthopaedics Start: 06-06-2025 ambulatory MONIQUE Palmer LIEN Facilit y:[facility] Start: 06-06-2025 End: 06-06-2025 Subsequent hospital visit by physician Mri [facility] [place] (Lg Bore/1.5t) Radiology MRI Comment on above: [...] Start: 05-16-2025 End: 05-16-2025 ambulatory MONIQUEGISSELLE EMMANUEL Facility:[facility] Start: 05-06-2025 End: 05-06-2025 Patient encounter procedure Cast Tech Joi Work Phone: Orthopaedics Comment on above: S/P foot surgery, ri ght (Primary Dx) Start: 05-06-2025 End: 05-06-2025 ambulatory MONIQUE S [facility] Facility:[facility] Start: 05-03-2025 End: 05-03-2025 ambulatory Sean Mata DPM Work Phone: Orthopaedics Start: 05-03-2025 End: 05-03-2025 Patient encounter procedure Sean Mata DPM Work Phone: Orthopaedics Comment on above: Cast Start: 04-25-2025 End: 04-25-2025 Patient encounter procedure Sean Mata DPM Work Phone: Orthopaedics Comment on above: Sinus tarsitis, righ t (Primary Dx) S/P foot surgery, ri ght (Primary Dx) Start: 04-25-2025 End: 04-25-2025 ambulatory [facility] Spencer [facility] Facility:[facility] Start: 04-16-2025 End: 04-16-2025 ambulatory SEAN MATA Facility:[facility] Start: 03-21-2025 End: 03-21-2025 Office outpatient visit 15 minutes Pato Avelar DPM Work Phone: [facility] Comment on above: Capsulitis of metata rsophalangeal (MTP) joint of right foot (Primary Dx); Type 2 diabetes mellitus without complication, unspecified whether long wall shear operator insulin use Start: 03-21-2025 End: 03-21-2025 ambulatory PATO AVELAR Not Available Start: 03-21-2025 End: 03-21-2025 Bamboo flowsheet Pato Avelar DPM Work Phone: [facility] Start: 03-21-2025 End: 03-21-2025 Bamboo flowsheet Pato Avelar DPM Work Phone: [facility] Start: 03-14-2025 End: 03-14-2025 Subsequent hospital visit by physician Saúl Martínez 1 Work Phone: Radiology Comment on above: S/P foot surgery, ri ght [Z98.890] Start: 03-14-2025 End: 03-14-2025 ambulatory Joya Ezra RT(R) Radiology Comment on above: Radiology XR Start: 03-14-2025 End: 03-14-2025 Patient encounter procedure Joya Ezra RT(R) Radiology Comment on above: S/P foot surgery, ri ght (Primary Dx) Start: 03-07-2025 End: 03-07-2025 Bamboo flowsheet Pato Avelar DPM Work Phone: [facility] Start: 03-07-2025 End: 03-07-2025 Bamboo flowsheet Pato Avelar DPM Work Phone: [facility] Start: 03-07-2025 End: 03-07-2025 Office outpatient visit 15 minutes Pato Avelar DPM Work Phone: [facility] Comment on above: Capsulitis of metata rsophalangeal (MTP) joint of right foot (Primary Dx) Start: 03-07-2025 End: 03-07-2025 ambulatory PATO AVELAR Not Available Start: 02-20-2025 End: 02-20-2025 Telephone encounter Sean Mata DPM Work Phone: [facility] Comment on above: Patient Update Start: 02-13-2025 [...] ght [Z98.890] Start: 02-05-2025 End: 02-05-2025 ambulatory [facility] Work Phone: Start: 02-05-2025 End: 02-05-2025 Patient encounter procedure [facility] Work Phone: Start: 01-23-2025 End: 01-23-2025 ambulatory SEAN AMTA Facility:[facility] Start: 01-23-2025 End: 01-23-2025 Patient encounter procedure Sean Mata DPM Work Phone: Orthopaedics Comment on above: S/P foot surgery, ri ght (Primary Dx); Accessory navicular bone of right foot S/P foot surgery, ri ght (Primary Dx) Start: 01-23-2025 ambulatory SEAN MATA Facility:[facility] Start: 01-09-2025 End: 01-09-2025 ambulatory SEAN MATA Facility:[facility] Start: 01-09-2025 End: 01-09-2025 Patient encounter procedure Sean Mata DPM Work Phone: Orthopaedics Comment on above: S/P foot surgery, ri ght (Primary Dx); Accessory navicular bone of right foot S/P foot surgery, ri ght (Primary Dx) Start: 01-02-2025 End: 01-02-2025 Telephone encounter Sean Mata DPM Work Phone: Orthopaedics Start: 12-31-2024 End: 01-01-2025 Telephone encounter Sean Mata DPM Work Phone: [facility] Comment on above: Surgical Followup Start: 12-31-2024 End: 12-31-2024 ambulatory SEAN MATA Facility:[facility] Start: 12-28-2024 End: 12-28-2024 [facility] Work Phone: Pre An[facility] Start: 12-28-2024 End: 12-28-2024 ambulatory MONIQUE EMMANUEL Facility:[facility] Start: 12-28-2024 End: 12-28-2024 Anesthesia consultation [facility] 3 Work Phone: Pre Anesthesia Comment on above: Pre-op evaluation (P rimary Dx); Gastroesophageal reflux disease, unspecified whether esophagitis present; Diabetes mellitus without complication (HCC); BMI 60.0-69.9, adult ([facility]); AQUILES (obstructive sleep apnea) Start: 12-28-2024 Encounter for other preprocedural examination MONIQUE EMMANUEL [facility] Start: 12-28-2024 End: 12-28-2024 Preprocedural examination done [facility] 3 Work Phone: [facility] Work Phone: Start: 12-14-2024 End: 12-14-2024 Orders [...] Mata DPM Work Phone: [facility] Comment on above: Pain (Primary Dx) Start: 11-26-2024 End: 11-26-2024 ambulatory [facility] Start: 10-24-2024 End: 10-24-2024 Postop follow up visit related to original px Pato Avelar DPM Work Phone: [facility] Comment on above: Stress fracture of r ight foot, initial encounter (Primary Dx); Type 2 diabetes mellitus without complication, unspecified whether long wall shear operator insulin use ([facility]); Accessory navicular bone of right foot Start: 10-24-2024 End: 10-24-2024 ambulatory PATO Elizabeth VALENTINO Not Available Start: 10-24-2024 End: 10-24-2024 Bamboo flowsheet Pato Elizabeth Valentino DPM Work Phone: [facility] Start: 10-24-2024 End: 10-24-2024 Bamboo flowsheet Pato Elizabeth Brown DPM Work Phone: [facility] Start: [...] Bamboo flowsheet Pato Avelar DPM Work Phone: [facility] Start: 09-20-2024 End: 09-20-2024 Bamboo flowsheet Pato Avelar DPM Work Phone: [facility] Start: 09-13-2024 End: 09-13-2024 Postop follow up visit related to original px Pato Avelar DPM Work Phone: [facility] Comment on above: 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); Contracture of right ankle; Type 2 diabetes mellitus without complication, unspecified whether long wall shear operator insulin use (CMS/[facility]) Start: 09-13-2024 End: 09-13-2024 ambulatory PATO AVELAR Not Available Start: 09-07-2024 End: 09-07-2024 Telephone encounter Pato Avelar DPM Work Phone: [facility] Start: 09-05-2024 End: 09-05-2024 Lab Drop off Pato Avelar [facility] Start: 09-05-2024 End: 09-05-2024 ambulatory DPM Pato Avelar Facility:[facility] Start: 08-30-2024 End: 08-30-2024 Office outpatient visit 25 minutes Pato Avelar DPM Work Phone: [facility] Comment on above: 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); Type 2 diabetes mellitus without complication, unspecified whether fci insulin use (CMS/HCC); Heel spur, left; Plantar fasciitis; Contracture of left ankle; Contracture of right ankle Start: 08-30-2024 End: 08-30-2024 ambulatory PATO AVELAR Not Available Start: 08-30-2024 End: 08-30-2024 Bamboo flowsheet Pato Avelar DPM Work Phone: [facility] Start: 08-30-2024 End: 08-30-2024 Bamboo flowsheet Pato Avelar DPM Work Phone: [facility] Start: 08-02-2024 End: 08-02-2024 Office outpatient visit 15 minutes Pato Avelar DPM Work Phone: [facility] Comment on above: 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); Posterior tibial tendonitis of right leg; Type 2 diabetes mellitus without complication, unspecified whether fci insulin use ([facility]) Start: 08-02-2024 End: 08-02-2024 ambulatory PATO AVELAR Not Available Start: 08-02-2024 End: 08-02-2024 Bamboo flowsheet Pato Avelar DPM Work Phone: [facility] Start: 08-02-2024 End: 08-02-2024 Bamboo flowsheet Pato Avelar DPM Work Phone: [facility] Start: 07-24-2024 End: 07-24-2024 Office outpatient new 45 minutes Jaime Camargo DO Work Phone: [facility] Comment on above: Arthralgia of left t emporomandibular joint (Primary Dx); Left ear pain; Chronic rhinitis; Fullness in ear, left Start: 07-24-2024 End: 07-24-2024 ambulatory JAIME S BIEDENBACH Not Available Start: 07-24-2024 End: 07-24-2024 Bamboo flowsheet Jaime S Biedandraebach DO Work Phone: [facility] Start: 07-24-2024 End: 07-24-2024 Bamboo flowsheet Jaime S Biyoubach DO Work Phone: [facility] Start: 07-19-2024 End: 07-19-2024 Office outpatient visit 15 minutes Pato Avelar DPM Work Phone: [facility] Comment on above: Posterior tibial ten donitis of right leg (Primary Dx); Accessory navicular bone of left foot; Type 2 diabetes mellitus without complication, unspecified whether long wall shear operator insulin use ([facility]); Accessory navicular bone of right foot Start: [...] 05-16-2024 Admission to same day surgery center [employer] Monique Emmanuel Work Phone: [facility] [place] Start: 05-16-2024 End: 05-16-2024 ambulatory [employer] Monique Emmanuel Work Phone: [facility] Work Phone: Start: 05-03-2024 End: 05-03-2024 ambulatory PATO AVELAR Not Available Start: 04-25-2024 ambulatory Pato Aevlar Facili ty:[facility] Start: 04-25-2024 End: 04-25-2024 ambulatory DPM Pato Avelar Facility:[facility] Start: 04-25-2024 End: 04-25-2024 Patient encounter procedure Pato Avelar [facility] Start: 04-16-2024 End: 05-10-2024 Pre-admission assessment Pato Avelar [facility] Start: 04-12-2024 End: 04-12-2024 ambulatory PATO AVELAR Not Available Start: 03-29-2024 End: 03-29-2024 ambulatory PATO AVELAR Not Available Start: 02-27-2024 End: 02-27-2024 ambulatory [employer] Monique Emmanuel Work Phone: [facility] Work Phone: Start: 02-27-2024 End: 02-27-2024 Patient encounter procedure [employer] MGR[employer]C Monique Emmanuel Work Phone: [facility] Work Phone: Start: [...] examination without abnormal findings MONIQUE EMMANUEL [facility] Start: 08-18-2022 End: 08-19-2022 ambulatory MONIQUE EMMANUEL Facility:[facility] Start: 08-18-2022 End: 08-19-2022 Encounter for general adult medical examination without abnormal findings MONIQUE EMMANUEL Facility:[facility] Start: 06-01-2022 End: 06-01-[address] WESTLEY JHA Facility: Start: 03-22-2022 End: 03-22-2022 ambulatory Monique Dudley Other [facility] Other Start: 03-22-2022 Office outpatient vi sit 15 minutes Monique Dudley [facility] Procedures Date Procedure Procedure Detail Performing Clinician Start: 06-14-2025 Plain chest X-ray Shruti Emmanuel [employer] Work Phone: Start: 06-06-2025 Mri any jt [...] Sean Sales Esperanza DPM Work Phone: Start: 05-16-2024 Debridement [employer] Shruti Emmanuel Work Phone: Start: 05-16-2024 X-ray of left foot [employer] Monique Emmanuel Work Phone: Start: 02-27-2024 Plain X-ray of right shoulder [employer] Monique Emmanuel Work Phone: Cholecystectomy Pato pulliam Plan of Treatment Date Care Activity Detail Author Start: 07-06-2034 Urine microalbumin profile DTaP,Tdap,Td Vaccine (7 - Td or Tdap) [facility] Start: 07-29-2025 Influenza vaccination [facility] Start: 06-16-2025 [facility] Start: 06-15-2025 Sleep disorder assessment [facility] Start: 06-15-2025 End: 06-15-2025 [facility] Start: 06-15-2025 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 [facility] Start: 06-15-2025 Hospital admission [facility] Start: 06-11-2025 End: 06-11-2025 Patient encounter procedure 06/11/2025 9:45 AM EDT Office Visit Orthopaedics [address] [place] [address] Sean Mata DPM [address] [place] [address] F/U, 3 weeks Orthopaedics Comment on above: F/U, 3 weeks Start: 06-06-2025 End: 06-06-2025 Patient encounter procedure 06/06/2025 8:00 AM EDT Appointment Radiology MRI [address] [place] [address] right ankle Radiology MRI Comment on above: right ankle Start: 05-16-2025 End: 05-16-2025 Patient encounter procedure Orthopaedics Comment on above: right foot F/U, 3 weeks Start: 03-21-2025 End: 03-21-2025 Patient encounter procedure 03/21/2025 2:20 PM EDT Office Visit [facility] [address] [facility] [address] [place] [address] Pato Avelar DPM [address] [facility] [address] [place] [address] Capsulitis of metatarsophalangeal (MTP) joint of right foot (Primary Dx); Type 2 diabetes mellitus without complication, unspecified whether long wall shear operator insulin use [facility] Comment on above: Capsulitis of metatarsophalangeal (MTP) joint of right foot (Primary Dx); Type 2 diabetes mellitus without complication, unspecified whether fci insulin use Start: 03-14-2025 End: 03-14-2025 Patient encounter procedure 03/14/2025 3:45 PM EDT Office Visit Orthopaedics [address] [place] [address] Sean Mata, DPM [address] [place] [address] Post op right foot, SX 12/31/24 Orthopaedics Comment on above: Post op right foot, SX 12/31/24 Start: 03-07-2025 End: 03-07-2025 Patient encounter procedure 03/07/2025 9:00 AM EDT Office Visit [facility] [address] [facility] [address] [place] [address] Pato Avelar, SHITAL [address] [facility] [address] [place] [address] Arrived [facility] Comment on above: Arrived Start: 02-13-2025 End: 02-13-2025 Patient encounter procedure Orthopaedics Comment on above: Post op right foot, SX 12/31/24 Start: 01-23-2025 End: 01-23-2025 Patient encounter procedure Orthopaedics Comment on above: Post op right foot, SX 12/31/24 Right Foot Start: 01-09-2025 End: 01-09-2025 Patient encounter procedure 01/09/2025 10:15 AM EST Office Visit Orthopaedics [address] [place] [address] Sean Mata, DPM [address] [place] [address] Post op right foot, SX 12/31/24 Orthopaedics Comment on above: Post op right foot, SX 12/31/24 Start: 12-31-2024 End: 12-31-2024 Admission to same day surgery center 12/31/2024 1:30 PM EST - 12/31/2024 3:30 PM EST Surgery Ambulatory Surgery [address] [place] [address] Sean Mata, DPM [address] [place] [address] RECONSTRUCTION POSTERIOR TIBIAL TENDON W/EXCISION OF ACCESSORY TARSAL NAVICULAR BONE Ambulatory Surgery Comment on above: RECONSTRUCTION POSTERIOR TIBIAL TENDON W /EXCISION OF ACCESSORY TARSAL NAVICULAR BONE Start: 12-31-2024 End: 12-31-2024 Rcnstj pst tibl tdn w/exc accessory tarsl navclr RECONSTRUCTION POSTERIOR TIBIAL TENDON W/EXCISION OF ACCESSORY TARSAL NAVICULAR BONE Accessory navicular bone of right foot 12/31/2024 1:30 PM EST [facility] Start: 12-31-2024 Subsequent hospital visit by physician 12/31/2024 1:30 PM EST Hospital Encounter Ambulatory Surgery [address] [place] [address] Sean Mata, DPM [address] [place] [address] 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] Ambulatory Surgery Comment on above: Accessory navicular bone of right foot [ Q74.2] Start: 12-31-2024 End: 12-31-2024 Admission to same day surgery center 12/31/2024 7:30 AM EST - 12/31/2024 9:25 AM EST Surgery Ambulatory Surgery [address] [place] [address] [place], DPM [address] [place] [address] RECONSTRUCTION POSTERIOR TIBIAL TENDON W/EXCISION OF ACCESSORY TARSAL NAVICULAR BONE Ambulatory Surgery Comment on above: RECONSTRUCTION POSTERIOR TIBIAL TENDON W /EXCISION OF ACCESSORY TARSAL NAVICULAR BONE Start: 12-31-2024 End: 12-31-2024 Anesthesia consultation 12/31/2024 7:30 AM EST Anesthesia Event Ambulatory Surgery [address] [place] [address] [place] [address] [place] [address] Ambulatory Surgery Start: 12-31-2024 End: 12-31-2024 Rcnstj pst tibl tdn w/exc accessory tarsl navclr RECONSTRUCTION POSTERIOR TIBIAL TENDON W/EXCISION OF ACCESSORY TARSAL NAVICULAR BONE Accessory navicular bone of right foot 12/31/2024 7:30 AM EST [facility] Start: 12-31-2024 Subsequent hospital visit by physician 12/31/2024 7:30 AM EST Hospital Encounter Ambulatory Surgery [address] [facility] [place] [address] Sean Mata, DPM [address] [place] [address] 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] Ambulatory Surgery Comment on above: Accessory navicular bone of right foot [ Q74.2] Start: 12-28-2024 End: 12-28-2024 Anesthesia consultation 12/28/2024 10:10 AM EST PAT Pre Anesthesia [address] [place] [address] PACC right foot, SX 12/31/24 Pre Anesthesia Comment on above: PACC right foot, SX 12/31/24 Start: 11-01-2024 End: 11-01-2024 Patient encounter procedure 11/01/2024 4:20 PM EST Office Visit [facility] [address] [phone] Pato Avelar DPM [address] [address] [facility] Start: 10-24-2024 End: 10-24-2024 Patient encounter procedure 10/24/2024 2:40 PM EST Office Visit [facility] [address] [place] [phone] Pato Avelar DPM [address] [address] Stress fracture of right foot, initial encounter (Primary Dx); Type 2 diabetes mellitus without complication, unspecified whether fci insulin use ([facility] Comment on above: Stress fracture of right foot, initial e ncounter (Primary Dx); Type 2 diabetes mellitus without complication, unspecified whether fci insulin use (CMS/HCC) Start: 10-11-2024 Hepatitis B Vaccine (3 of 3 - 3-dose series) Hepatitis B Vaccine (3 of 3 - 3-dose series) [facility] Start: 10-04-2024 End: 10-04-2024 Patient encounter procedure 10/04/2024 2:40 PM EST Office Visit [facility] [address] [facility] [address] [place] [address] Pato Avelar, CALLIEM [address] [address] 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); Contracture of right ankle [facility] Comment on above: Accessory navicular bone of right foot ( Primary Dx); Contracture of right ankle Start: 09-20-2024 End: 09-20-2024 Patient encounter procedure 09/20/2024 2:40 PM EDT Office Visit [facility] [address] [facility] [address] [place] [address] Pato Avelar DPM [address] [address] 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); Contracture of right ankle [facility] Comment on above: Accessory navicular bone of right foot ( Primary Dx); Contracture of right ankle Start: 09-13-2024 End: 09-13-2024 Patient encounter procedure 09/13/2024 3:20 PM EDT Office Visit [facility] [address] [facility] [address] [place] [address] Pato Avelar DPM [address] [address] [facility] Start: 09-12-2024 End: 09-12-2024 Patient encounter procedure 09/12/2024 3:00 PM EDT Office Visit [facility] [address] [place] [address] Pato Avelar DPM [address] [address] [facility] Start: 09-05-2024 End: 09-05-2024 Patient encounter procedure 09/05/2024 7:30 AM EDT Procedure Visit [facility] Pato Avelar DPM [address] [address] [facility] Start: 08-30-2024 End: 08-30-2024 Patient encounter procedure 08/30/2024 2:50 PM EDT Office Visit [facility] [address] [place] [phone] Pato Avelar DPM [address] [address] 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); Type 2 diabetes mellitus without complication, unspecified whether fci insulin use ([facility]) [facility] Comment on above: Accessory navicular bone of right foot ( Primary Dx); Type 2 diabetes mellitus without complication, unspecified whether long wall shear operator insulin use ([facility]) Start: 08-02-2024 End: 08-02-2024 Patient encounter procedure [facility] Comment on above: Accessory navicular bone of right foot ( Primary Dx); Posterior tibial tendonitis of right leg; Type 2 diabetes mellitus without complication, unspecified whether long wall shear operator insulin use ([facility]) Start: 07-29-2024 Covid-19 Vaccine ( season) Covid-19 Vaccine ( season) [facility] Start: 07-29-2024 Influenza vaccination Influenza Vaccine (#1) [facility] Start: 07-24-2024 End: 07-24-2024 Patient encounter procedure [facility] Comment on above: Arrived Start: 07-19-2024 End: 07-19-2024 Patient encounter procedure 07/19/2024 4:00 PM EDT Office Visit [facility] [address] [place] [phone] Pato Avelar DPM [address] [address] Accessory navicular bone of left foot (Primary Dx); Type 2 diabetes mellitus without complication, unspecified whether long wall shear operator insulin use (CMS/[facility]) [facility] Comment on above: Accessory navicular bone of left foot (P rimary Dx); Type 2 diabetes mellitus without complication, unspecified whether fci insulin use ([facility]) Start: 05-16-2024 [facility] Start: 05-16-2024 [facility] Start: 2018 Screening for malignant neoplasm of cervix [facility] Start: 2009 Screening for malignant neoplasm of cervix [facility] Start: 2007 Pneumococcal vaccination Pneumococcal Vaccine (1 of 2 - PCV) [facility] Start: 2007 Urine screening for protein Diabetes: Urine Protein Screening [facility] Start: 2006 Annual PCP Team Chronic Disease Visit Annual PCP Team Chronic Disease Visit [facility] Start: 2006 Anxiety Screening Anxiety Screening [facility] Start: 2006 Depression Screening Depression Screening [facility] Start: 2006 Hepatitis B surface antibody level LDL Cholesterol [facility] Start: 2006 Hepatitis C screening Hepatitis C Screening [facility] Start: 2006 HIV screening HIV Screening [facility] Start: 1999 Urine microalbumin profile DTaP,Tdap,Td Vaccine (6 - Tdap) [facility] Start: 1998 Diabetic foot examination Diabetic Foot Exam [facility] Start: 1998 Glaucoma screening [facility] Start: 1998 Hepatitis B screening Urine Albumin:Creatinine Ratio [facility] Start: 1993 Hemoglobin A1c measurement HbA1C [facility] Start: 1988 Hemoglobin A1c measurement Diabetes: Hemoglobin A1C [facility] Anion gap measurement [facility] Application short le g cast walking/ambulatory CAST DAVID LEG, SHORT(WALKING) Procedures Routine Sinus tarsitis, right Ordered: 04/25/2025 [facility] Work Phone: Comment on above: Ordered: 04/25/2025 Basophils [#/volume] in Blood by Automated count [facility] Basophils/100 leukoc ytes in Blood by Automated count [facility] Calculated LDL kesha sterol level [facility] Cholesterol.total/Ch oleste rol in HDL [Mass Ratio] in Serum or Plasma [facility] Eosinophils/100 leuk ocytes in Blood by Automated count [facility] Erythrocyte distribu tion width [Ratio] by Automated count [facility] Erythrocytes [#/volu me] in Blood [facility] Glucose [Mass/volume ] in Serum or Plasma [facility] Glucose measurement estimated from glycated hemoglobin [facility] Hematocrit [Volume Fraction] of Blood [facility] Hemoglobin [Mass/vol ume] in Blood [facility] Hemoglobin A1c/Hemoglobin.total in Blood [facility] Leukocytes [#/volume ] corrected for nucleated erythrocytes in Blood by Automated coun [facility] Leukocytes [#/volume ] in Blood [facility] Lymphocytes [#/volum e] in Blood by Automated count [facility] Lymphocytes/100 leuk ocytes in Blood by Automated count [facility] MCH [Entitic mass] b y Automated count [facility] MCHC [Mass/volume] b y Automated count [facility] MCV [Entitic volume] by Automated count [facility] Monocytes [#/volume] in Blood by Automated count [facility] Monocytes/100 leukoc ytes in Blood by Automated count [facility] End: 06-15-2026 MR Ankle - right WO contrast MRI ANKLE WO IVCON RIGHT Radiology Routine Chronic pain of right ankle 1 Occurrences starting 05/16/2025 until 06/15/2026 [facility] Work Phone: Comment on above: 1 Occurrences starting 05/16/2025 until 06/15/2026 MR Foot - right WO contrast MR foot right wo IV contrast Imaging Routine Stress fracture of right foot, initial encounter Ordered: 10/04/2024 [facility] Work Phone: Comment on above: Ordered: 10/04/2024 Neutrophils [#/volum e] in Blood by Automated count [facility] Neutrophils/100 leuk ocytes in Blood by Automated count [facility] Nucleated erythrocyt es [Presence] in Blood by Automated count [facility] Patient Education Know your Meds [facility] Work Phone: Patient referral [facility] Work Phone: Platelet mean volume [Entitic volume] in Blood by Automated count [facility] Platelets [#/volume] in Blood [facility] VLDL cholesterol measurement [facility] XR Foot - right 3 Views XR foot 3+ views right Imaging Routine Accessory navicular bone of right foot 09/13/2024 3:04 PM EDT [employer] Work Phone: XR Foot - right 3 Views XR foot 3+ views right Imaging Routine Accessory navicular bone of right foot 08/02/2024 3:28 PM EDT [employer] Work Phone: End: 02-02-2026 XR Foot - right AP and Lateral and oblique XR FOOT GENERAL 3V AP/LAT/OBL RIGHT Radiology Routine S/P foot surgery, right 1 Occurrences starting 01/03/2025 until 02/02/2026 [facility] Work Phone: Comment on above: 1 Occurrences starting 01/03/2025 until 02/02/2026 End: 02-10-2026 XR Foot - right AP and Lateral and oblique XR FOOT GENERAL 3V AP/LAT/OBL RIGHT Radiology Routine S/P foot surgery, right 1 Occurrences starting 01/16/2025 until 02/10/2026 [facility] Work Phone: Comment on above: 1 Occurrences starting 01/16/2025 until 02/10/2026 End: 04-07-2026 XR Foot - right AP and Lateral and oblique XR FOOT GENERAL 3V AP/LAT/OBL RIGHT Radiology Routine S/P foot surgery, right 1 Occurrences starting 03/14/2025 until 04/07/2026 [facility] Work Phone: Comment on above: 1 Occurrences starting 03/14/2025 until 04/07/2026 Immunizations Immunization Date Immunization Notes Care Provider Tony teague 07-19-2002 hepatitis B vaccine, pediatric or pediatric/adolescent dosage Jaime Camargo DO Work Phone: [facility] 07-19-2002 measles, mumps and rubella virus vaccine Jaime Camargo DO Work Phone: [facility] 04-16-1993 diphtheria, tetanus toxoids and pertussis vaccine Jaime Camargo DO Work Phone: [facility] 04-16-1993 trivalent poliovirus vaccine, live, oral Jaime Camargo DO Work Phone: [facility] 05-18-1990 haemophilus influenz ae type b vaccine, conjugate unspecified formulation Jaime Camargo DO Work Phone: [facility] 10-13-1989 diphtheria, tetanus toxoids and pertussis vaccine Jaime Camargo DO Work Phone: [facility] 10-13-1989 measles, mumps and rubella virus vaccine Jaime Camargo DO Work Phone: [facility] 10-13-1989 trivalent poliovirus vaccine, live, oral Jaime Camargo DO Work Phone: [facility] 05-11-1989 diphtheria, tetanus toxoids and pertussis vaccine Jaime Camargo DO Work Phone: [facility] 03-17-1989 diphtheria, tetanus toxoids and pertussis vaccine Jaime Camargo DO Work Phone: [facility] 03-17-1989 trivalent poliovirus vaccine, live, oral Jaime Camargo DO Work Phone: [facility] 1988 diphtheria, tetanus toxoids and pertussis vaccine Jaime Camargo DO Work Phone: [facility] 1988 trivalent poliovirus vaccine, live, oral Jaime Camargo DO Work Phone: [facility] Payers Date Payer Category Payer Self-pay [id number] 2024 Unknown [id number] 2020 Blue Cross Blue Shield 1.2.8 [id number] 15 2020 Unknown [id number] 1988 Unknown [id number] 2.16.84 0.1.888037.3.579.2.593 1988 Unknown [id number] 2.16.84 0.1.488217.3.579.2.593 1988 Unknown [id number] 2.16.84 0.1.783629.3.579.2.593 1988 Unknown [id number] 2.16.84 0.1.688150.3.579.2.593 1988 Unknown [id number] 2.16.84 0.1.088610.3.579.2.593 1988 Unknown [id number] 2.16.84 0.1.015194.3.579.2.593 1988 Unknown [id number] 2.16.84 0.1.544530.3.579.2.593 1988 Unknown [id number] 2.16.84 0.1.498834.3.579.2.593 1988 Unknown [id number] 2.16.8 40.1.204055.3.579.2.727 1988 Unknown [id number] 2.16.84 0.1.951079.3.579.2.1259 1988 Unknown [id number] 2.16.84 0.1.135101.3.579.2.1259 1988 Unknown [id number] 2.16.84 0.1.188585.3.579.2.1259 1988 Unknown [id number] 2.16.84 0.1.786440.3.579.2.1259 1988 Unknown [id number] 2.16.84 0.1.670636.3.579.2.1258 1988 Unknown [id number] 2.16.84 0.1.548727.3.579.2.1258 1988 Unknown [id number] 2.16.8 40.1.762806.3.579.2.727 1988 Unknown [id number] 2.16.84 0.1.535618.3.579.2.1258 1988 Unknown [id number] 2.16.84 0.1.245461.3.579.2.1258 1988 Unknown [id number] 2.16.84 0.1.849118.3.579.2.1258 1988 Unknown [id number] 2.16.84 0.1.289180.3.579.2.1258 1988 Unknown [id number] 2.16.84 0.1.771397.3.579.2.1258 1988 Unknown [id number] 2.16.84 0.1.420250.3.579.2.1258 1988 Unknown [id number] 2.16.84 0.1.117808.3.579.2.1258 1988 Unknown [id number] 2.16.84 0.1.758631.3.579.2.1258 1988 Unknown [id number] 2.16.84 0.1.032500.3.579.2.1258 1988 Unknown [id number] 2.16.84 0.1.529013.3.579.2.1258 1988 Unknown [id number] 2.16.84 0.1.473934.3.579.2.1258 1988 Unknown [id number] 2.16.84 0.1.965384.3.579.2.1259 1959 Blue Cross Blue Shield [id number] 2.16.840.1.267008.19 Unknown [id number] 2.16.8 40.1.662971.3.579.2.531 Social History Date Type Detail Facility Unknown if ever smoked [facility] Other Start: 08-02-2024 End: 12-12-2024 Sex Assigned At [facility] Start: 10-25-2018 End: 2025 Tobacco smoking status NHIS Never smoked tobacco (finding) [facility] Start: 1990 Sex Assigned At Female [facility] Tobacco smoking status No Smoking Status Entered [facility] Start: 03-29-2024 End: 12-28-2024 Tobacco use and exposure Smokeless tobacco non-user [facility] Start: 08-02-2024 End: 12-31-2024 Alcoholic beverage intake Lifetime non-drinker (finding) [facility] Start: 08-02-2024 End: 12-12-2024 History of Social function [facility] Start: 1988 Sex assigned at Not on file [facility] Tobacco smoking status MIIS Tobacco smoking consumption unknown [facility] Adult Depression Screening Assessment 2 [facility] Start: 02-05-2025 Sex Female (finding) [facility] NEGATED: Highlighted rowStart: NINF History of tobacco use Passive smoker [facility] Medical Equipment Procedure Code Equipment Code Equipment Origin al Text Equipment Identifier Dates Wound debridement Tendon/ligamen t bone anchor, non-bioabsorbable ([id number] [facility] Start: 05-16-2024 [place] [employer] 1 .5 Pharr 2 Joselin [employer] 26.2mm Suture - [id number] Start: 12-31-2024 Blood Sugar Diagnostic (Onetouch Ultra Test) strip Start: 02-05-2025 Blood Sugar Diagnostic (Onetouch Ultra Test) strip Start: 02-05-2025 Blood Sugar Diagnostic (Onetouch Ultra Test) strip Start: 02-05-2025 Blood Sugar Diagnostic (Onetouch Ultra Test) strip Start: 02-05-2025 Goals Date Patient Goal Desired Activity /State Functional Status Date Assessment Result Facility 04-25-2024 Functional Status No [facility] Clinical Notes 03-22-2022 to 06-15-2025 Note Date & Type Note Facility 06-15-2025 Evaluation note Diagnosis Onset Date Resolution Chest pain acute June 15 1:59am Diabetes mellitus acute June 152024 1:59am [facility] Work Phone: 1(896) 950-695407-19-2025 Evaluation note* Diagnosis Onset Date Resolution Status Admit Date Diabetes mellitus acute June 152024 1:59am Chest pain resolved June 15 1:59am [facility] Work Phone: 1(533) 174-111307-15-2025 NoteHNO ID: [id number] Author: SEAN AMTA DPM Service: ? Author Type: Physician Type: Progress Notes Filed: 06/11/2025 10:13 Note Text: PRIMARY SERVICE: [facility] 9:48 AM through 10:18 AM [...] tablet by mouth once daily. 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 DEXCOM G7 SENSOR [...] the deltoid and spring ligaments as described. Harness F[facility] Transcribe Date/Time: Jun 06 2025 11:37A Dictated by : RADHA TYSON MD This examination was interpreted and the report reviewed and electronically signed by: KATIANA FLORES MD on Jun 06 2025 2:13PM EST Results-Findings * * *Final Report* * * DATE OF EXAM: Jun 06 2025 8:43AM [facility] 0164 - MRI ANKLE WO IVCON RT [...] tibiofibular ligament: I (more content not included)... [facility]07-15-2025 History of Present illness Narrative* Sean Mata DPM - 06/11/2025 10:08 AM EDT Images from the original note were not included. PRIMARY SERVICE: [facility] 9:48 AM through 10:18 AM [...] tablet by mouth once daily. 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 DEXCOM G7 SENSOR [...] the deltoid and spring ligaments as described. Harness Fitter: [facility] Transcribe Date/Time: Jun 06 2025 11:37A Dictated by : RADHA TYSON MD This examination was interpreted and the report reviewed and electronically signed by: KATIANA FLORES MD on Jun 06 2025 2:13PM EST Results-Findings * * *Final Report* * * DATE OF EXAM: Jun 06 2025 8:43AM [facility] 0164 - MRI ANKLE WO IVCON RT [...] History MRI ANKLE WO IVCON RIGHT (Order #[id number]) on 06/06/2025 - Order Result History Report [...] of SERVICE: 10:08 AM documented [facility] History of Present illness Narrative* Mary Alvarez [...] PATIENT PRESENTS WITH AN IMPLANTABLE OR ATTACHED DISCOUNT CLERK: Yes [employer] RADIOLOGY DEPARTMENT: MR; Exam(s) Completed: Lower MSK: Ankle/Hind Foot, right . Aromatherapy Administered: No PERIPHERAL IV DATA: Not applicable SIGNED BY: MARIBELL Lomax) June 06, 2025 8:17 AM documented in this encounterMet[facility]-10-2025 NoteHNO ID: [id number] Author: MARY ALVAREZ RT(R) Service: ? Author [...] PATIENT PRESENTS WITH AN IMPLANTABLE OR ATTACHED DISCOUNT CLERK: Yes [facility] RADIOLOGY DEPARTMENT: MR; Exam(s) Completed: [...] to change it out. [place] [facility]06-20-2025 Miscellaneous Notes* Telephone Encounter - Natalia Barrios CT - 05/17/2025 12:00 PM EDT Patients boot in no longer inflating or button is broken. Her mother will be coming in this way next week. She will bring the boot to change it out. [place] documented in this encounterMet[facility]06-19-2025 NoteHNO ID: [id number] Author: BEVERLY DOBSON Cast Tech Service: ? Author Type: Cushion Filler Type: Progress Notes Filed: 05/16/2025 15:24 Note Text: Patient in today for scheduled appointment. Cast removed. Right leg cleansed with Wound wash, sea-clens and debrisoft. Examined by Dr. Mata. Patient to go int a boot she has at home. Beverly Dobson [facility]06-19-2025 History of Present illness Narrative* Beverly Dobson Cast Tech - 05/16/2025 3:23 PM EDT Patient in today for scheduled appointment. Cast removed. Right leg cleansed with Wound wash, sea-clens and debrisoft. Examined by Dr. Mata. Patient to go int a boot she has at home. Beverly Robi, CT documented in this encounterMet[facility]06-19-2025 NoteHNO ID: [id number] Author: SEAN MATA DPM Service: ? Author Type: Physician Type: Progress Notes Filed: 05/16/2025 14:44 Note Text: Medical intake sheet from May 16, 2025 , was updated by patient, reviewed, and was made part of the patient's chart. Sean Mata DPM PRIMARY SERVICE: [facility] SUBJECTIVE: Patient is seen today [...] tablet by mouth once daily. 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 DEXCOM G7 SENSOR [...] and further discuss treatment options SIGNATURE: [facility] of Present illness Narrative* Sean Mata DPM - 05/16/2025 2:41 PM EDT Medical intake sheet from May 16, 2025 , was updated by patient, reviewed, and was made part of the patient's chart. Sean Mata DPM PRIMARY SERVICE: [facility] SUBJECTIVE: Patient is seen today [...] tablet by mouth once daily. 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 DEXCOM G7 SENSOR [...] SIGNATURE: Sean Mata DPM documented in this encounterMet[facility]06-09-2025 NoteHNO ID: [id number] Author: BEVERLY DOBSON Cast Tech Service: ? Author Type: Cushion Filler Type: Progress Notes Filed: 05/06/2025 16:02 Note [...] doctor during next scheduled appointment/prn. Beverly Dobson [facility]06-09-2025 History of Present illness Narrative* Beverly Dobson [...] appointment/prn. Beverly Dobson, CT documented in this encounterMet[facility]06-06-2025 Telephone encounter Note * Telephone Encounter - Staci Powers - 05/03/2025 2:59 PM EDT Patient called the office to schedule a cast change as suggested by Lashon. No order placed, unfortunately due to the time restraints we had to schedule for Tuesday. [facility]06-06-2025 Miscellaneous Notes* Telephone Encounter - Staci Powers - 05/03/2025 2:59 PM EDT Patient called the office to schedule a cast change as suggested by Lashon. No order placed, unfortunately due to the time restraints we had to schedule for Tuesday. documented in this encounterMet[facility]05-29-2025 NoteHNO ID: [id number] Author: BEVERLY DOBSON Cast Tech Service: ? Author Type: Cushion Filler Type: Progress Notes Filed: 04/25/2025 15:14 Note Text: Applied A Short Leg Weightbearing Cast to the right leg. Instructions on cast care given. A medium Cast Shoe was dispensed. Will f/u as scheduled/prn. [facility]EE [facility] History of Present illness Narrative* Beverly Dobson Cast Tech - 04/25/2025 3:13 PM EDT Applied A Short Leg Weightbearing Cast to the right leg. Instructions on cast care given. A medium Cast Shoe was dispensed. Will f/u as scheduled/prn. HAYES Johnson documented in this encounterMetro[facility]05-29-2025 NoteHNO ID: [id number] Author: SEAN MATA DPM Service: ? Author Type: Physician Type: Progress Notes Filed: 04/25/2025 14:38 Note Text: PRIMARY SERVICE: [facility] SUBJECTIVE: Patient is seen today [...] by mouth once daily. - DEXCOM G7 SLP TEACHER 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 - DEXCOM G7 SENSOR [...] these instructions. Informed Consent Consent Obtained: Verbal Muddy Protocol A moment to CARE was completed. [...] of SERVICE: 04/25/2025 TIME of SERVICE: 2:09 [facility]05-29-2025 History of Present illness Narrative* EsperanzaSean, CALLIEM - 04/25/2025 2:09 PM EDT Associated Order(s): Additional Injections: R subtalar joint Post-Procedure Diagnose(s): Sinus tarsitis, right Images from the original note were not included. PRIMARY SERVICE: [facility] SUBJECTIVE: Patient is seen today [...] tablet by mouth once daily. 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 DEXCOM G7 SENSOR [...] these instructions. Informed Consent Consent Obtained: Verbal Muddy Protocol A moment to CARE was completed. [...] of SERVICE: 2:09 PM documented in this encounterMet[facility]05-20-2025 NoteHNO ID: [id number] Author: SEAN MATA DPM Service: ? Author Type: Physician Type: Progress Notes Filed: 04/16/2025 14:48 Note Text: PRIMARY SERVICE: [facility] Virtual visit with Zoom: 2:15 [...] tablet by mouth once daily. 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 DEXCOM G7 SENSOR [...] week for evaluation. Explained I really cannot director style what is going on without examining her clinically to determine the best plan of care. Continue icing and oral ibuprofen in the meantime along with the return to her Airc[employer] cam walker boot. SIGNATURE: Sean Mata DPM DATE of SERVICE: 04/16/2025 TIME of SERVICE: 2:42 [facility]04-24-2025 History of Present illness Narrative* Pato Johnson Valentino, SHITAL - 03/21/2025 2:20 PM EDT Patient: Noel Paul : 1990 PCP: Erich Garcia MD SUBJECTIVE This is a 34 y.o. female that presents today s/p right revisional modified Kidner right foot by Dr Mata at [facility]. Pt denies n/f/v/c and has negative pain [...] History: Past Medical History: Diagnosis Date Diabetes ([facility]) Ear problems GERD (gastroesophageal reflux disease) 2011 [...] 2 diabetes mellitus without complication, unspecified whether fci insulin use PLAN Continue with physical therapy Patient to return to orthotics Patient to continue with oral anti - inflammatories as needed for pain and recommended OTC medications such as tylenol or Ibuprofen Pato Avelar DPM documented in this encounterResearch Psychiatric [id number] NoteHNO ID: [id number] Author: NATALIA BARRIOS CT Service: ? Author Type: Clinical Cushion Filler Type: Progress Notes Filed: 03/14/2025 16:37 Note Text: Dispensed size Medium ASO to right foot.[facility]04-17-2025 History of Present illness Narrative* Natalia Barrios CT - 03/14/2025 4:37 PM EDT Dispensed size Medium ASO to right foot. * Sean Mata DPM - 03/14/2025 3:41 PM EDT PRIMARY SERVICE: [facility] Podiatry SUBJECTIVE: Patient is seen today [...] needed for up to 10days. 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 DEXCOM G7 SENSOR [...] SIGNATURE: Sean Mata DPM documented in this encounterMetrohealth Main Campus Medical Center04-17-2025 NoteHNO ID: [id number] Author: SEAN MATA DPM Service: ? Author Type: Physician Type: Progress Notes Filed: 03/14/2025 16:01 Note Text: PRIMARY SERVICE: [facility] Podiat[facility] SUBJECTIVE: Patient is seen today [...] for up to 10 days. 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 DEXCOM G7 SENSOR [...] for ASO ankle brace today SIGNATURE: Sean Mata, [facility]04-17-2025 Note HNO ID: [id number] Author: JOYA DUBOIS RT(Misha) Service: ? Author [...] PATIENT PRESENTS WITH AN IMPLANTABLE OR ATTACHED DISCOUNT CLERK: No RADIOLOGY DEPARTMENT: General X-ray: Exam(s) Completed: Lower Extremity X-Ray(s): Foot, Right and Wt. Bearing PERIPHERAL IV DATA: Not applicable SIGNED BY: RT Ezequiel(Misha) March 14, 2025 3:32 [facility]04-17-2025 History of Present illness Narrative* Joya [...] PATIENT PRESENTS WITH AN IMPLANTABLE OR ATTACHED DISCOUNT CLERK: No RADIOLOGY DEPARTMENT: General X-ray: Exam(s) Completed: Lower Extremity X- Ray(s): Foot, Right and Wt. Bearing PERIPHERAL IV DATA: Not applicable SIGNED BY: RT Ezequiel(R) March 14, 2025 3:32 PM documented in this encounterMetrohealth Main Campus Medical Center04-10-2025 History of Present illness Narrative* Pato Avelar, SHITAL - 03/07/2025 9:00 AM EDT Patient: Noel Paul : 1990 PCP: Erich Garcia MD SUBJECTIVE This is a 34 y.o. female that presents today s/p right revisional modified Kidner right foot by Dr Mata at [facility]. Pt denies n/f/v/c and has negative pain [...] History: Past Medical History: Diagnosis Date Diabetes ([facility]) Ear problems GERD (gastroesophageal reflux disease) 2012 [...] pack Pato Avelar DPM documented in this encounterResearch Psychiatric [id number] Telephone encounter Note* Telephone Encounter - Chris Bhatt OCCA - 02/20/2025 4:21 PM EDT Called and informed staff she may being partial weight bearing. [facility]03-26-2025 Miscellaneous Notes* Telephone Encounter - Chris Bhatt OCCA - 02/20/2025 4:21 PM EDT Called and informed staff she may being partial weight bearing. * Telephone Encounter - Marva Bhardwaj - 02/20/2025 4:06 PM EDT Bonilla from [facility] PT Dept is calling Sean Mata DPM today to request weightbearing guide lines for patient PT CB [phone] ext [phone] FAX [phone] Patient has been identified by name and birthdate. Duration of symptoms: N/A Person calling: caregiver: Call patient at: [phone] (home) [phone] (cell) Was an appointment scheduled: No Closing statement: Results or non-symptom based questions: Thank you for calling [facility], your call will be returned within the next business day. Marva Almeida documented in this encounterMetrohealth Main Campus Medical Center03-26-2025 Telephone encounter Note * Telephone Encounter - Marva Bhardwaj - 02/20/2025 4:06 PM EDT Bonilla from [facility] PT Dept is calling Sean Mata DPM today to request weightbearing guide lines for patient PT CB [phone] ext [phone] FAX [phone] Patient has been identified by name and birthdate. Duration of symptoms: N/A Person calling: caregiver: Call patient at: [phone] (home) [phone] (cell) Was an appointment scheduled: No Closing statement: Results or non-symptom based questions: Thank you for calling [facility], your call will be returned within the next business day. Marva Almeida [facility]03-19-2025 NoteHNO ID: [id number] Author: BEVERLY DOBSON Cast Tech Service: ? Author Type: Cushion Filler Type: Progress Notes Filed: 02/13/2025 10:15 Note Text: Patient in today for scheduled appointment. Cast removed. Right leg cleansed with Cavilon. Examined by Dr. Mata. Fitted with a medium Short Pneumatic Walker for the right leg. Instructions on application, adjustments and care given. Will f/u as scheduled/prn. Beverly Dobson [facility]03-19-2025 History of Present illness Narrative* Beverly Dobson Cast Tech - 02/13/2025 10:14 AM EDT Patient in today for scheduled appointment. Cast removed. Right leg cleansed with Cavilon. Examinedby Dr. Mata. Fitted with a medium Short Pneumatic Walker for the right leg. Instructions on application, adjustments and care given. Will f/u as scheduled/prn. HAYES Johnson documented in this encounterMetrohealth Main Campus Medical Center03-19-2025 NoteHNO ID: [id number] Author: SEAN MATA DPM Service: ? Author Type: Physician Type: Progress Notes Filed: 02/13/2025 10:05 Note Text: PRIMARY SERVICE: [facility] Podiatry SUBJECTIVE: Patient is seen today [...] up to 10 days. - DEXCOM G7 SLP TEACHER 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 - DEXCOM G7 SENSOR [...] made part of the patient's chart. [facility] History of Present illness Narrative* Sean Mata DPM - 02/13/2025 9:44 AM EDT PRIMARY SERVICE: [facility] Podiat[facility] SUBJECTIVE: Patient is seen today [...] needed for up to 10days. 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 DEXCOM G7 SENSOR [...] chart. Sean Mata DPM documented in this encounterMetrohealth Main Campus Medical Center03-19-2025 NoteHNO ID: [id number] Author: MAURA SHELL RT(Misha) Service: ? Author [...] PATIENT PRESENTS WITH AN IMPLANTABLE OR ATTACHED DISCOUNT CLERK: No RADIOLOGY DEPARTMENT: General X-ray: Exam(s) [...] PATIENT PRESENTS WITH AN IMPLANTABLE OR ATTACHED DISCOUNT CLERK: No RADIOLOGY DEPARTMENT: General X-ray: Exam(s) Completed: Lower Extremity X- Ray(s): Foot, Right PERIPHERAL IV DATA: Not applicable SIGNED BY: RT Rickie(R) February 13, 2025 9:23 AM documented in this encounterMetrohealth Main Campus Medical Center02-26-2025 Note* Addendum Note - Natalia Barrios CT - 01/23/2025 12:18 PM ESTAddended by: NATALIA BARRIOS on: 01/23/2025 12:18 PM Modules accepted: Orders [facility]02-26-2025 Miscellaneous Notes* Addendum Note - Natalia Barrios CT - 01/23/2025 12:18 PM ESTAddended by: NATALIA BARRIOS on: 01/23/2025 12:18 PM Modules accepted: Orders documented in this encounterMetrohealth Main Campus Medical Center02-26-2025 NoteHNO ID: [id number] Author: BEVERLY DOBSON Cast Tech Service: ? Author Type: Cushion Filler Type: Progress Notes Filed: 01/23/2025 11:52 Note Text: Patient in today for scheduled appointment. Cast removed. Right leg cleansed with sea-clens. Examined by Dr. Mata. Applied A Short Leg Nonweightbearing Cast to the right leg. Instructions on cast care given. Will f/u as scheduled/prn. Beverly Dobson [facility]02-26-2025 History of Present illness Narrative* Beverly Dobson Cast Tech - 01/23/2025 11:51 AM EST Patient in today for scheduled appointment. Cast removed. Right leg cleansed with sea-clens. Examined by Dr. Mata. Applied A Short Leg Nonweightbearing Cast to the right leg. Instructions on cast care given. Will f/u as scheduled/prn. HAYES Johnson documented in this encounterMetrohealth Main Campus Medical Center02-26-2025 NoteHNO ID: [id number] Author: SEAN MATA DPM Service: ? Author Type: Physician Type: Progress Notes Filed: 01/23/2025 11:47 Note Text: PRIMARY SERVICE: [facility] Podiatry SUBJECTIVE: Patient is seen today [...] for up to 10 days. 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 DEXCOM G7 SENSOR [...] and refer to physical therapy. SIGNATURE: [facility]02-26-2025 History of Present illness Narrative* Sean Mata DPM - 01/23/2025 10:56 AM EST PRIMARY SERVICE: [facility] Pod[facility] SUBJECTIVE: Patient is seen today [...] needed for up to 10days. 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 DEXCOM G7 SENSOR [...] SIGNATURE: Sean Mata DPM documented in this encounterMetrohealth Main Campus Medical Center02-12-2025 NoteHNO ID: [id number] Author: SHAYLEE CONCEPCION MA Service: ? Author Type: Eye Clinic Manager Type: Progress Notes Filed: 01/09/2025 11:22 Note [...] will follow up as scheduled or as needed.[facility]02-12-2025 History of Present illness Narrative* Shaylee [...] scheduled or as needed. documented in this encounterMetrohealth Main Campus Medical Center02-12-2025 NoteHNO ID: [id number] Author: SEAN MATA DPM Service: ? Author Type: Physician Type: Progress Notes Filed: 01/09/2025 10:55 Note Text: PRIMARY SERVICE: [facility] Pod[facility] SUBJECTIVE: Patient is seen today [...] for up to 10 days. 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 DEXCOM G7 SENSOR [...] original note were not included. PRIMARY SERVICE: [facility] Podiat[facility] SUBJECTIVE: Patient is seen today [...] needed for up to 10days. 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 DEXCOM G7 SENSOR [...] of SERVICE: 10:52 AM documented in this encounterMetrohealth Main Campus [facility] Center02-05-2025 Telephone encounter Note * Telephone Encounter - Sean Mata DPM - 01/02/2025 12:36 PM EST Called patient at [phone] to return call regarding pain management. I spoke with the patient. Advised I sent a prescription over for her electronically for Toradol 10 mg tablets take 2 right away the 1 every 6 hours with food until gone in addition to the Percocet and the Phenergan. Recommend 2 Percocet every 4-6 hours due to her BMI. Sean Mata DPM [facility]02-05-2025 Miscellaneous Notes* Telephone Encounter - Sean Mata DPM - 01/02/2025 12:36 PM EST Called patient at [phone] to return call regarding pain management. I spoke with the patient. Advised I sent a prescription over for her electronically for Toradol 10 mg tablets take 2 right away the 1 every 6 hours with food until gone in addition to the Percocet and the Phenergan. Recommend 2 Percocet every 4-6 hours due to her BMI. Sean Mata DPM documented in this encounterMetrohealth Main Campus Medical Center02-03-2025 Miscellaneous Notes* Telephone Encounter - Sean Mata DPM - 12/31/2024 8:26 PM EST Called patient at her Lonnie's cell number at [phone] to check on postop progress. Received voicemail. [...] calling: self Call patient at: at home [phone] (home) [phone] (cell) Was an appointment scheduled: No Closing statement: Results or non-symptom based questions: Thank you for calling [facility], your call will be returned within the next business day. Marva Almeida documented in this encounterMetrohealth Main [facility] Center02-03-2025 Telephone encounter Note * Telephone Encounter - Sean Mata DPM - 12/31/2024 8:26 PM EST Called patient at her Lonnie's cell number at [phone] to check on postop progress. Received voicemail. Left message that I called. Called patient back at 8:41 PM to same number. Spoke with who said she was doing well without any significant pain or problems at this time. Advised to call if any questions or problems between now and her first scheduled postop visit on December. Sean Mata DPM [facility] Work Phone: [phone] 966-493602-03-2025 Telephone encounter Note* Telephone Encounter - Karissa Raman MA - 12/31/2024 3:25 PM EST Message has been sent directly to Dr Mata's phone. [facility]02-03-2025 Telephone encounter Note* Telephone Encounter - Marva [...] calling: self Call patient at: at home [phone] (home) [phone] (cell) Was an appointment scheduled: No Closing statement: Results or non-symptom based questions: Thank you for calling [facility], your call will be returned within the next business day. Marva Almeida [facility]02-03-2025 NoteHNO ID: [id number] Author: ESTELLA GIBBONS AA Service: Anesthesiology Author Type: Senior Staff Consultant Type: Anesthesia Procedure Notes Filed: 12/31/2024 09:57 [...] December 31, 2024 TIME: 9:57 AM CSN: [id number] [facility]02-03-2025 NoteHNO ID: [id number] Author: ESTELLA GIBBONS AA Service: Anesthesiology Author Type: Senior Staff Consultant Type: Anesthesia Procedure Notes Filed: 12/31/2024 08:20 [...] December 31, 2024 TIME: 8:18 AM CSN: [id number] Hospital01-31-2025 History and physical note* Ary Rocha APRN.WELLHEAD PUMPER - 12/28/2024 10:10 AM EST Images from the original note were not included. [facility] HISTORY AND PHYSICAL EXAMINATION SERVICE DATE: 12/28/2024 SERVICE TIME: 10:08 AM PRIMARY CARE PHYSICIAN: Monique Emmanuel CNP, WELLHEAD PUMPER REASON FOR VISIT: Noel Paul is a [...] STOP-Bang Score: STOP-Bang Score: 0 (Awaiting CPAP) [id number] Score: Age: <65 Sex: female [id number] Score: ARISCAT Score: Age: <=50 Preoperative SpO2: [...] chart review and guidance on proceeding at [place]. Per Stephanie, patient may proceed as scheduled at [place] CONSULTS: Anesthesia Consult chart review The Following [...] AT BEDTIME NEEDED Taking Yes DEXCOM G7 SLP TEACHER 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 DEXCOM G7 SENSOR eduin DEXCOM G6 TRANSMITTER ediun as directed. No medication comments found. CURRENT ALLERGIES: ALLERGIES Allergen Reactions Sulfa (Sulfonamide * Hives, Rash Covid Immunization Dates Overdue - Covid-19 Vaccine ( season) Never done No completion, postpone, frequency change, or communication history exists for this topic. REVIEW OF SYSTEMS: PAIN ASSESSMENT: General: No weight loss, malaise or fevers. Neuro: No history of TIA's, stroke, MACHINIST HELPER tumor, impaired sensorium, hemiplegia, paraplegia or quadraplegia. No neurological symptoms or problems. Respiratory: No history of current cough or dyspnea, or pneumonia in the past 6 weeks. No history of respiratory/pulmonary symptoms or problems. Cardiovascular: No history of HTN requiring medication, no history of angina, CHF, UT, cardiac surgery or stents. Denies rest pain, [...] Noel Paul DATE: 12/28/2024 TIME: 10:21 AM [facility]01-31-2025 History and physical note* Ary Rocha APRN.IRENE [...] STOP-Bang Score: STOP-Bang Score: 0 (Awaiting CPAP) [id number] Score: Age: <65 Sex: female [id number] Score: ARISCAT Score: Age: <=50 Preoperative SpO2: [...] chart review and guidance on proceeding at [place]. Per Stephanie, patient may proceed as scheduled at [place] CONSULTS: Anesthesia Consult chart review The Following [...] AT BEDTIME NEEDED Taking Yes DEXCOM G7 SLP TEACHER 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 DEXCOM G7 SENSOR [...] fevers. Neuro: No history of TIA's, stroke, MACHINIST HELPER tumor, impaired sensorium, hemiplegia, paraplegia or quadraplegia. No neurological symptoms or problems. Respiratory: No history of current cough or dyspnea, or pneumonia in the past 6 weeks. No history of respiratory/pulmonary symptoms or problems. Cardiovascular: No history of HTN requiring medication, no history of angina, CHF, UT, cardiac surgery or stents. Denies rest pain, [...] 12/28/2024 TIME: 10:21 AM documented in this encounterMetrohealth [facility] Center01-29-2025 Instructions* Patient Instructions* Ary Rocha APRN.WELLHEAD PUMPER - 12/26/2024 7:49 AM EST Images from the original note were not included. [facility] PATIENT PREOPERATIVE INSTRUCTIONS Sean Mata,* has scheduled you for your procedure at this surgery center: [facility]: [phone] --[address] [facility] [address]. Please read below carefully for your personalized [...] office. If you are currently using a knzy-xjq-fhyf injectable or oral medication for diabetes or [...] Procedures: - YOU MUST HAVE A RESPONSIBLE FOUR ROLL CALENDER OPERATOR TAKE YOU HOME. A ASTRO TECHNICIAN OR BREAK OFF WORKER CANNOT BE MADE A RESPONSIBLE FOUR ROLL CALENDER OPERATOR. - We recommend that a responsible [...] Advance Directive, please fax a copy to [phone] or email to for it to be [...] your chart that day. 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 documented in this encounterMetrohealth Main [facility] Center01-15-2025 NoteHNO ID: [id number] Author: SEAN MATA DPM Service: ? Author Type: Physician Type: Progress Notes Filed: 12/12/2024 10:46 Note Text: [facility] Department of Orthopedics [facility] Orthopedic Surgery Name: Noel Paul Date [...] Current Outpatient Medications Medication Sig DEXCOM G7 SLP TEACHER 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 DEXCOM G7 SENSOR [...] to proceed. We will complete scheduling. [facility] History of Present illness Narrative* Sean Mata DPM - 12/12/2024 10:39 AM EST [facility] Department of Orthopedics [facility] Orthopedic Surgery Name: Noel Paul Date [...] Current Outpatient Medications Medication Sig DEXCOM G7 SLP TEACHER 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 DEXCOM G7 SENSOR [...] scheduling. Sean Mata DPM documented in this encounterMetrohealth Main Campus Medical Center01-15-2025 NoteHNO ID: [id number] Author: JAMAL REYNOSO RT(R) Service: ? Author [...] PATIENT PRESENTS WITH AN IMPLANTABLE OR ATTACHED DISCOUNT CLERK: No RADIOLOGY DEPARTMENT: General X-ray: Exam(s) [...] PATIENT PRESENTS WITH AN IMPLANTABLE OR ATTACHED DISCOUNT CLERK: No RADIOLOGY DEPARTMENT: General X-ray: Exam(s) Completed: Lower Extremity X- Ray(s): Foot, Right PERIPHERAL IV DATA: Not applicable SIGNED BY: RT Manju(R) December 12, 2024 9:29 AM documented in this encounterMetrohealth Main Campus Medical Center12-30-2024 NoteOrthopedic Surgery Subjective Pain of the Right Foot 11/26/24 Noel Palu is a 34 y.o. 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 Kat Her MD Orthopedic Surgery, [facility] 11/26/2024[facility]11-27-2024 History of Present illness Narrative* Pato [...] today for follow-up of MRI results at [facility]. Allergies: Allergies Allergen Reactions Sulfa Antibiotics Rash and Hives Past Medical History: Past Medical History: Diagnosis Date Diabetes ([facility]) Ear problems GERD (gastroesophageal reflux disease) 2012 [...] stress reaction. ASSESSMENT 49 days s/p modified [facility] 1. Stress fracture of right foot, initial encounter 2. Type 2 diabetes mellitus without complication, unspecified whether long wall shear operator insulin use ([facility]) 3. Accessory navicular bone of right foot [...] need more invasive surgery. Will refer to [facility] Dr. [place] for referral and consultation at tertiary care center secondary to more advanced type procedure may be necessary. Will refer for consultation and possible further intervention Pato Avelar DPM documented in this encounterResearch Psychiatric [id number] History of Present illness Narrative* Pato Avelar [...] History: Past Medical History: Diagnosis Date Diabetes ([facility]) Ear problems GERD (gastroesophageal reflux disease) 2012 [...] right Pato Avelar DPM documented in this encounterResearch Psychiatric [id number] History of Present illness Narrative* Pato Avelar [...] History: Past Medical History: Diagnosis Date Diabetes ([facility]) Ear problems GERD (gastroesophageal reflux disease) 2011 [...] diagnosis. Pato Avelar DPM documented in this encounterResearch Psychiatric [id number] Telephone encounter Note* Telephone Encounter - Pato Avelar DPM - 09/07/2024 8:26 AM EDT Has been called for possible increase in pain medication and will switch from hydrocodone to oxycodone and sent to [facility] and May Research Psychiatric [id number] Miscellaneous Notes* Telephone Encounter - Pato Avelar DPM - 09/07/2024 8:26 AM EDT Has been called for possible increase in pain medication and will switch from hydrocodone to oxycodone and sent to [facility] and May documented in this encounterResearch Psychiatric [id number] History of Present illness Narrative* Pato Avelar [...] History: Past Medical History: Diagnosis Date Diabetes ([facility]) Ear problems GERD (gastroesophageal reflux disease) 2011 [...] cool tibia to toes b/l NEURO: 5.07 Caney Deyanira monofilament test positive to digits and [...] mellitus without complication, unspecified whether long wall shear operator insulin use ([facility]) 3. Heel spur, left 4. Plantar fasciitis [...] benefits, post op complications and long wall shear operator expectations were discussed including but not limited to: infection,bone infection,wound dehiscence hardware failure and irritation,wound dehiscence,delay union/mal union/non union of bone. RSDS,neuroma,duty limitations,DVT/PE, UT,nerve damage, scar, loss of sensation, swelling. Pt [...] 2024 Pato Avelar DPM documented in this encounterResearch [facility] [id number] History of Present illness Narrative* Pato Avelar [...] History: Past Medical History: Diagnosis Date Diabetes ([facility]) Ear problems GERD (gastroesophageal reflux disease) 2011 [...] 2 diabetes mellitus without complication, unspecified whether fci insulin use ([facility]) PLAN Patient to continue with oral anti [...] Patient may continue with conservative treatments including irei-wmy-gyelaoc anti- inflammatories and other treatments suggested today. Patient may want to be s cheduled for surgical intervention in the near future. Patient had a right modified Kidner procedure to the right foot with removal of accessory navicular with postoperative pain medicine of [place] and will see family Lien for preop clearance. This condition is unrelated to prior condition Pato Avelar DPM documented in this encounterResearch Psychiatric [id number] Telephone encounter Note* Telephone Encounter - GIOVANI MURRY - 07/31/2024 12:54 PM EDT Pt called back, would like scanned at next appt [facility] [id number] Miscellaneous Notes* Telephone Encounter - GIOVANI MURRY - 07/31/2024 12:54 PM EDT Pt called back, would like scanned at next appt * Telephone Encounter - GIOVANI MURRY - 07/31/2024 12:42 PM EDT Left vm to go over benefits * Telephone Encounter - Marti Murry MA - 07/27/2024 10:44 AM EDT Per call to Elda CHILDRESS @ [phone] with Denise Marroquin - I verified the policy is current and active with an effective date of 11/28/2020. L3020 is covered at 100% as both the ded and oop have been met. There are no frequency limits, no exclusions, and no prior authorizations needed. Ref#: [id number]. * Telephone Encounter - Pato Avelar DPM - 07/19/2024 4:56 PM EDT Please precertify for custom orthotics for the diagnosis of Posterior tibial tendinitis bilaterally documented in this encounterResearch Psychiatric [id number] Telephone encounter Note* Telephone Encounter - GIOVANI MURRY - 07/31/2024 12:42 PM EDT Left vm to go over benefits [facility] [id number] Telephone encounter Note* Telephone Encounter - Marti Murry MA - 07/27/2024 10:44 AM EDT Per call to Elda CHILDRESS @ [phone] with Denise Marroquin - I verified the policy is current and active with an effective date of 11/28/2020. L3020 is covered at 100% as both the ded and oop have been met. There are no frequency limits, no exclusions, and no prior authorizations needed. Ref#: [id number]. [facility] Psych[facility] [id number] History of Present illness Narrative* Jaime Camargo [...] the next 7-10 days. Patient will use wvtz-yph-nbevcnu ibuprofen 3 times a day with food to help decrease inflammation. The patient may also benefit from a mouth guard. We will consider referral to Dr. Adali SALAZAR if there is no improvement documented in this encounterResearch Psychiatric [id number] Telephone encounter Note* Telephone Encounter - Pato Avelar DPM - 07/19/2024 4:56 PM EDT Please precertify for custom orthotics for the diagnosis of Posterior tibial tendinitis bilaterally [facility] Psych[facility] [id number] History of Present illness Narrative* Pato Avelar DPM - 07/19/2024 4:10 PM EDT Patient: Noel Paul : 1990 PCP: [facility] Provider MD Milad SUBJECTIVE This is [...] History: Past Medical History: Diagnosis Date Diabetes ([facility]) Medications: Current Outpatient Medications: cholecalciferol (Vitamin D-3) [...] mellitus without complication, unspecified whether long wall shear operator insulin use ([facility]) 3. Accessory navicular bone of right foot [...] treatments Pato Avelar DPM documented in this encounterResearch Psychiatric [id number] Evaluation note* Encounter Date Diagnosis Assessment Notes [...] no improvement in 5 to 7 days. [employer] Other Evaluation + Plan note Future Appointments Appointment Date:05/09/2024 07:30:00 AM Scheduled Provider: [facility] information [facility] Work Phone: Evaluation note* Diagnosis 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 Type 2 diabetes mellitus without complication, unspecified whether fci insulin use ([facility]) Heel spur, left Plantar fasciitis Plantar fascial fibromatosis Contracture of left ankle Contracture of right ankle documented in this encounter [facility]* Diagnosis 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 documented in this encounter [facility]* Diagnosis 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 Contracture of right ankle Type 2 diabetes mellitus without complication, unspecified whether long wall shear operator insulin use (CMS/HCC) documented in this encounter [facility] Healthcare[facility] note* Diagnosis 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 Contracture of right ankle documented in this encounter [facility] note* Diagnosis 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 Contracture of right ankle Stress fracture of right foot, initial encounter documented in this encounter [facility] note* Diagnosis Stress fracture of right foot, initial encounter- Primary Type 2 diabetes mellitus without complication, unspecified whether fci insulin use (CMS/HCC) Accessory navicular bone of right foot documented in this encounter [facility] HealthcareEvaluation note* Diagnosis Posterior tibial tendonitis of right leg- Primary Accessory navicular bone of left foot Type 2 diabetes mellitus without complication, unspecified whether fci insulin use (CMS/HCC) Accessory navicular bone of right foot documented in this encounter [facility] Healthcare[facility] note* Diagnosis Arthralgia of left temporomandibular joint- Primary Left ear pain Unspecified otalgia Chronic rhinitis Fullness in ear, left documented in this encounter [facility] note* Diagnosis 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 Posterior tibial tendonitis of right leg Type 2 diabetes mellitus without complication, unspecified whether long wall shear operator insulin use (CMS/HCC) documented in this encounter [facility] note* Diagnosis Accessory navicular bone of left foot- Primary documented in this encounter [facility]* Diagnosis Pain in right foot- Primary Pain in limb Accessory navicular bone of right foot [facility] Pain Generalized pain [facility] Diagnosis 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 [facility] Diagnosis Pre-op evaluation- Primary Preoperative examination, unspecified Gastroesophageal reflux disease, unspecified whether esophagitis present Diabetes mellitus without complication ([facility]) Type II or unspecified type diabetes mellitus [...] 10:05 AM ESTAssociated Problem(s): BMI 60.0-69.9, adult ([facility]) Assessment: diet and exercise encouraged BMI 62 * Assessment & Plan Note - Ary Rocha APRN.CNP - 12/28/2024 10:05 AM ESTAssociated Problem(s): Diabetes mellitus without complication ([facility]) Assessment: managed with oral med, stable Follows up with PCP BG at home 120's HgbA1c 6.6% * Assessment & Plan Note - Ary Rocha APRN.CNP - 12/28/2024 10:04 AM ESTAssociated Problem(s): Acid reflux Assessment: managed with med, stable Follows up with PCP documented in this encounter [facility] note* Diagnosis Pain- Primary Generalized pain Pain Generalized pain Pre-op evaluation- Primary Preoperative examination, unspecified Gastroesophageal reflux disease, unspecified whether esophagitis present Diabetes mellitus without complication ([facility]) Type II or unspecified type diabetes mellitus without mention of complication, not stated as uncontrolled BMI 60.0-69.9, adult ([facility]) Body Mass Index 60.0-69.9, adult AQUILES (obstructive sleep apnea) Obstructive sleep apnea (adult) (pediatric) documented in this encounter [facility] note* Diagnosis Pre-op evaluation- Primary Preoperative examination, unspecified Gastroesophageal reflux disease, unspecified whether esophagitis present Diabetes mellitus without complication (HCC) Type II or unspecified type diabetes mellitus without mention of complication, not stated as uncontrolled BMI 60.0-69.9, adult ([facility]) Body Mass Index 60.0-69.9, adult AQUILES (obstructive sleep apnea) Obstructive sleep apnea (adult) (pediatric) S/P foot surgery, right- Primary Accessory navicular bone of right foot documented in this encounter [facility] note* Diagnosis Pre-op evaluation- Primary Preoperative examination, unspecified Gastroesophageal reflux disease, unspecified whether esophagitis present Diabetes mellitus without complication (HCC) Type II or unspecified type diabetes mellitus without mention of complication, not stated as uncontrolled BMI 60.0-69.9, adult ([facility]) Body Mass Index 60.0-69.9, adult AQUILES (obstructive sleep apnea) Obstructive sleep apnea (adult) (pediatric) S/P foot surgery, right- Primary documented in this encounter [facility] note* Diagnosis Pre-op evaluation- Primary Preoperative examination, unspecified Gastroesophageal reflux disease, unspecified whether esophagitis present Diabetes mellitus without complication (HCC) Type II or unspecified type diabetes mellitus without mention of complication, not stated as uncontrolled BMI 60.0-69.9, adult ([facility]) Body Mass Index 60.0-69.9, adult AQUILES (obstructive sleep apnea) Obstructive sleep apnea (adult) (pediatric) S/P foot surgery, right- Primary Accessory navicular bone of right foot documented in this encounter [facility] note* Diagnosis Pre-op evaluation- Primary Preoperative examination, unspecified Gastroesophageal reflux disease, unspecified whether esophagitis present Diabetes mellitus without complication (HCC) Type II or unspecified type diabetes mellitus without mention of complication, not stated as uncontrolled BMI 60.0-69.9, adult ([facility]) Body Mass Index 60.0-69.9, adult AQUILES (obstructive sleep apnea) Obstructive sleep apnea (adult) (pediatric) S/P foot surgery, right- Primary documented in this encounter [facility] note* Diagnosis Pre-op evaluation- Primary Preoperative examination, unspecified Gastroesophageal reflux disease, unspecified whether esophagitis present Diabetes mellitus without complication (HCC) Type II or unspecified type diabetes mellitus without mention of complication, not stated as uncontrolled BMI 60.0-69.9, adult ([facility]) Body Mass Index 60.0-69.9, adult AQUILES (obstructive sleep apnea) Obstructive sleep apnea (adult) (pediatric) S/P foot surgery, right- Primary S/P foot surgery, right documented in this encounter [facility] note* Diagnosis Pre-op evaluation- Primary Preoperative examination, unspecified Gastroesophageal reflux disease, unspecified whether esophagitis present Diabetes mellitus without complication (HCC) Type II or unspecified type diabetes mellitus without mention of complication, not stated as uncontrolled BMI 60.0-69.9, adult ([facility]) Body Mass Index 60.0-69.9, adult AQUILES (obstructive sleep apnea) Obstructive sleep apnea (adult) (pediatric) S/P foot surgery, right- Primary documented in this encounter [facility] note* Diagnosis Pre-op evaluation- Primary Preoperative examination, unspecified Gastroesophageal reflux disease, unspecified whether esophagitis present Diabetes mellitus without complication (HCC) Type II or unspecified type diabetes mellitus without mention of complication, not stated as uncontrolled BMI 60.0-69.9, adult ([facility]) Body Mass Index 60.0-69.9, adult AQUILES (obstructive sleep apnea) Obstructive sleep apnea (adult) (pediatric) S/P foot surgery, right documented in this encounter [facility] note* Diagnosis Capsulitis of metatarsophalangeal (MTP) joint of right foot- Primary documented in this encounter [facility] note* Diagnosis Pre-op evaluation- Primary Preoperative examination, unspecified Gastroesophageal reflux disease, unspecified whether esophagitis present Diabetes mellitus without complication (HCC) Type II or unspecified type diabetes mellitus without mention of complication, not stated as uncontrolled BMI 60.0-69.9, adult ([facility]) Body Mass Index 60.0-69.9, adult AQUILES (obstructive sleep apnea) Obstructive sleep apnea (adult) (pediatric) S/P foot surgery, right- Primary S/P foot surgery, right documented in this encounter [facility] note* Diagnosis Pre-op evaluation- Primary Preoperative examination, unspecified Gastroesophageal reflux disease, unspecified whether esophagitis present Diabetes mellitus without complication (HCC) Type II or unspecified type diabetes mellitus without mention of complication, not stated as uncontrolled BMI 60.0-69.9, adult ([facility]) Body Mass Index 60.0-69.9, adult AQUILES (obstructive sleep apnea) Obstructive sleep apnea (adult) (pediatric) S/P foot surgery, right documented in this encounter [facility] note* Diagnosis Capsulitis of metatarsophalangeal (MTP) joint of right foot- Primary Type 2 diabetes mellitus without complication, unspecified whether long wall shear operator insulin use documented in this encounter [facility] note* Diagnosis Pre-op evaluation- Primary Preoperative examination, unspecified Gastroesophageal reflux disease, unspecified whether esophagitis present Diabetes mellitus without complication (HCC) Type II or unspecified type diabetes mellitus without mention of complication, not stated as uncontrolled BMI 60.0-69.9, adult ([facility]) Body Mass Index 60.0-69.9, adult AQUILES (obstructive sleep apnea) Obstructive sleep apnea (adult) (pediatric) Sinus tarsitis, right- Primary documented in this encounter [facility] note* Diagnosis Pre-op evaluation- Primary Preoperative examination, unspecified Gastroesophageal reflux disease, unspecified whether esophagitis present Diabetes mellitus without complication (HCC) Type II or unspecified type diabetes mellitus without mention of complication, not stated as uncontrolled BMI 60.0-69.9, adult ([facility]) Body Mass Index 60.0-69.9, adult AQUILES (obstructive sleep apnea) Obstructive sleep apnea (adult) (pediatric) S/P foot surgery, right- Primary Chronic pain of right ankle documented in this encounter [facility] note* Diagnosis Pre-op evaluation- Primary Preoperative examination, unspecified Gastroesophageal reflux disease, unspecified whether esophagitis present Diabetes mellitus without complication (HCC) Type II or unspecified type diabetes mellitus without mention of complication, not stated as uncontrolled BMI 60.0-69.9, adult ([facility]) Body Mass Index 60.0-69.9, adult AQUILES (obstructive sleep apnea) Obstructive sleep apnea (adult) (pediatric) Chronic pain of right ankle documented in this encounter [facility] note* Diagnosis Pre-op evaluation- Primary Preoperative examination, unspecified Gastroesophageal reflux disease, unspecified whether esophagitis present Diabetes mellitus without complication (HCC) Type II or unspecified type diabetes mellitus without mention of complication, not stated as uncontrolled BMI 60.0-69.9, adult ([facility]) Body Mass Index 60.0-69.9, adult AQUILES (obstructive sleep apnea) Obstructive sleep apnea (adult) (pediatric) S/P foot surgery, right- Primary Chronic pain of right ankle documented in this encounter [facility] Narrative - Reported* Type Description Date Medical History Acquired hypothyroidism Medical History vitamin D deficiency Surgical History cholecystectomy Hospitalization History No Hospitalization histo ry information [facility] [employer] Other History of Present illness Narrative* Pato Elizabeth Avelar, DPM - 09/13/2024 3:20 PM EDT [...] History: Past Medical History: Diagnosis Date Diabetes ([facility]) Ear problems GERD (gastroesophageal reflux disease) 2011 [...] 2 diabetes mellitus without complication, unspecified whether fci insulin use ([facility]) PLAN Patient to keep dry sterile dressing [...] data available for this section [facility] Discharge instructions No data available for this section [facility] Discharge instructions Additional Instructions DISCHARGE [...] operative site FOLLOW UP Phone numbers: Office [phone] [ ][facility] Work Phone: Progress note No data available for this section [facility] for referral (narrative)* Diagnostic Procedure Only (Routine) - Closed Specialty Diagnoses / Procedures Referred By Contac t Referred To Contact XR IMAGING Diagnoses Pain Procedures XR FOOT GENERAL 3V AP/LAT/OBL RIGHT RADEX FOOT COMPLETE MINIMUM 3 VIEWS Sean Mata DPM [address] [place] [address] [place] [address] Referral ID Status Reason Start Date Expiration Date V isits Requested Visits Authorized [id number] Closed Auto-Generate d Referral 12/05/2024 01/04/2026 1 1 [facility] for referral (narrative)* Diagnostic Procedure Only (Routine) - Closed Specialty Diagnoses / Procedures Referred By Contac t Referred To Contact XR IMAGING Diagnoses Pain Procedures XR FOOT GENERAL 3V AP/LAT/OBL RIGHT RADEX FOOT COMPLETE MINIMUM 3 VIEWS Sean Mata DPM [address] [place] [address] [place] [address] Referral ID Status Reason Start Date Expiration Date V isits Requested Visits Authorized [id number] Closed Auto-Generate d Referral 12/05/2024 01/04/2026 1 1 [facility] for referral (narrative)No reason for referral [facility] Narrative* Diagnostic Procedure Only (Routine) - Closed Specialty Diagnoses / Procedures Referred By Contac t Referred To Contact XR IMAGING Diagnoses Pain Procedures XR FOOT GENERAL 3V AP/LAT/OBL RIGHT RADEX FOOT COMPLETE MINIMUM 3 VIEWS Sean Mata DPM [address] [place] [address] [place] [address] Referral ID Status Reason Start Date Expiration Date V isits Requested Visits Authorized [id number] Closed Auto-Generate d Referral 12/05/2024 01/04/2026 1 1 [facility] for visit Narrative* Diagnostic Procedure Only (Routine) - Closed Specialty Diagnoses / Procedures Referred By Contac t Referred To Contact XR IMAGING Diagnoses S/P foot surgery, right Procedures XR FOOT GENERAL 3V AP/LAT/OBL RIGHT RADEX FOOT COMPLETE MINIMUM 3 VIEWS Sean Mata DPM [address] [place] [address] Phone: tel: fax: [place] [address] Referral ID Status Reason Start Date Expiration Date V isits Requested Visits Authorized [id number] Closed Auto-Generate d Referral 02/06/2025 03/07/2026 1 1 [facility] for visit Narrative* Diagnostic Procedure Only (Routine) - Closed Specialty Diagnoses / Procedures Referred By Contac t Referred To Contact XR IMAGING Diagnoses S/P foot surgery, right Procedures XR FOOT GENERAL 3V AP/LAT/OBL RIGHT RADEX FOOT COMPLETE MINIMUM 3 VIEWS Sean Mata DPM [address] [place] [address] Phone: tel: fax: [place] [address] Referral ID Status Reason Start Date Expiration Date V isits Requested Visits Authorized [id number] Closed Auto-Generate d Referral 03/07/2025 04/06/2026 1 1 [facility] for visit Narrative* MRI/CT (Routine) - Closed Specialty Diagnoses / Procedures Referred By Alex gamboa Referred To Contact MR IMAGING Diagnoses Chronic pain of right ankle Procedures MRI ANKLE WO IVCON RIGHT MRI ANY JT LOWER EXTREM W/O CONTRAST MATRSean Oden DPM [address] [facility] [address] [place] [address] Phone: tel: fax: [place] [address] Referral ID Status Reason Start Date Expiration Date V isits Requested Visits Authorized [id number] Closed Auto-Generate d Referral 05/22/2025 06/11/2025 1 1 [facility] Summary Purpose Family History No Family History [...] Congenital anomaly of heart Unknown Advance Directives No Advanced Directives Records [...] bone of right foot Pato Avelar DPM [address] [address] Referral ID Status Reason Start Date Expiration Date V isits Requested Visits Authorized [id number] Pending Review 09/07/2024 03/06/2025 1 1 Additional [...] and content) DATE CREATED AUTHOR [facility]/06/[address] [facility] DATE CREATED AUTHOR AUTHOR'S ORGANIZ ATION 04/26/2024 [facility] DATE CREATED AUTHOR AUTHOR'S ORGANIZ ATION 07/01/2024 [facility] EPIC DATE CREATED AUTHOR AUTHOR'S ORGANIZ ATION 09/12/2024 [place] [facility] DATE CREATED AUTHOR AUTHOR'S ORGANIZ ATION 09/13/2024 [place] [facility] DATE CREATED AUTHOR AUTHOR'S ORGANIZ ATION 09/15/2024 [facility] DATE CREATED AUTHOR AUTHOR'S ORGANIZ ATION 12/09/2024 [facility] DATE CREATED AUTHOR AUTHOR'S ORGANIZ ATION 03/22/2025 [facility] EPIC DATE CREATED AUTHOR AUTHOR'S ORGANIZ ATION 06/15/2025 [facility] DATE CREATED AUTHOR AUTHOR'S ORGANIZ ATION 07/15/2025 [facility] Care Teams (unrecognized sec tion [...] Inactive Member Role Status Dates Monique Dudley NP-C Attending Provider Active S tart: February 27, 2024 End: February 27, 2024 Monique Emmanuel NP-C Primary Care Provider Active Start: February 27, 2024 End: February 27, 2024 Team Status: Active Member Role Status Dates Monique Dudley NP-Teresa Attending Provider Active S tart: February 27, 2024 Monique Emmanuel NP-C Primary Care Provider Active Start: February 27, 2024 Team Status: Inactive Member Role Status Dates Monique Emmanuel NP-C Primary Care Provider Active Start: May 16, 2024 End: May 16, 2024 Pato Avelar DPM Attending Provider Active Start: May 16, 2024 End: May 16, 2024 Accounts Receivable Analyst Relationship Specialty Start Date End Date Erich Garcia MD [address] [place] [id number] PCP - General Family Medicine 07/24/24 Monique Emmaunel MD [address] [place] [address] Referring Physician Family Medicine 03/29/24 Monique Emmanuel MD [address] [place] [address] Referring Physician Family Medicine 07/24/24 Jaime Camargo DO [address] [place] [address] Otolaryngology 07/24/24 Accounts Receivable Analyst Relationship Specialty Start Date End Date Erich Garcia MD [address] [place] [id number] PCP - General Family Medicine 07/24/24 Monique Emmanuel MD [address] [place] [id number] Referring Physician Family Medicine 03/29/24 Monique Emmanuel MD [address] [place] [address] Referring Physician Family Medicine 07/24/24 Jaime Camargo DO [address] [place] [address] Otolaryngology 07/24/24 Accounts Receivable Analyst Relationship Specialty Start Date End Date Erich Garcia MD [address] [place] [phone] PCP - General Family Medicine 07/24/24 Monique Emmanuel MD [address] [place] [address] Referring Physician Family Medicine 03/29/24 Monique Emmanuel MD [address] [place] [address] Referring Physician Family Medicine 07/24/24 Jaime Camargo DO [address] [place] [address] Otolaryngology 07/24/24 Accounts Receivable Analyst Relationship Specialty Start Date End Date Erich Garcia MD [address] [place] [phone] PCP - General Family Medicine 07/24/24 Monique Emmanuel MD [address] [place] [address]20 Referring Physician Family Medicine 03/29/24 Monique Emmanuel MD [address] [place] [address] Referring Physician Family Medicine 07/24/24 Jaime Camargo DO [address] [place] [address] Otolaryngology 07/24/24 Accounts Receivable Analyst Relationship Specialty Start Date End Date Erich Garcia MD [address] [place] [phone] PCP - General Family Medicine 07/24/24 Monique Emmanuel MD [address] [place] [address]67 Referring Physician Family Medicine 03/29/24 Monique Emmanuel MD [address] [place] [address] 22075 Referring Physician Family Medicine 07/24/24 Jaime Camargo DO [address] [place] [address] Otolaryngology 07/24/24 Accounts Receivable Analyst Relationship Specialty Start Date End Date Erich Garcia MD [address] [place] [phone] PCP - General Family Medicine 07/24/24 Monique Emmanuel MD [address] [place] [address] 16192 Referring Physician Family Medicine 03/29/24 Monique Emmanuel MD [address] [place] [address] Referring Physician Family Medicine 07/24/24 Jaime Camargo DO [address] [place] [address] Otolaryngology 07/24/24 Accounts Receivable Analyst Relationship Specialty Start Date End Date Erich Garcia MD [address] [place] [phone] PCP - General Family Medicine 07/24/24 Monique Emmanuel MD [address] [place] [address] 17013 Referring Physician Family Medicine 03/29/24 Monique Emmanuel MD [address] [place] [address]3671 Referring Physician Family Medicine 07/24/24 Jaime Camargo, [address] [place] [address] Otolaryngology 07/24/24 Accounts Receivable Analyst Relationship Specialty Start Date End Date Erich Garcia MD [address] [place] [phone] PCP - General Family Medicine 07/24/24 Monique Emmanuel MD [address] [place] [address] Referring Physician Family Medicine 03/29/24 Monique Emmanuel MD [address] [place] [address] 59557 Referring Physician Family Medicine 07/24/24 Jaime Camargo DO [address] [place] [address] Otolaryngology 07/24/24 Accounts Receivable Analyst Relationship Specialty Start Date End Date Unallocated, Yashira Romeo MD [address] [place] [address] [place] [address] PCP - General Family Medicine 03/29/24 Monique Emmanuel MD [address] [place] [address] 244[address] Referring Physician Family Medicine 03/29/24 Accounts Receivable Analyst Relationship Specialty Start Date End Date Erich Garcia MD [address] [place] [phone] PCP - General Family Medicine 07/24/24 Monique Emmanuel MD [address] [place] [address] Referring Physician Family Medicine 03/29/24 Monique Emmanuel MD [address] [place] [address] 23657 Referring Physician Family Medicine 07/24/24 Jaime Camargo DO [address] [place] [address] Otolaryngology 07/24/24 Accounts Receivable Analyst Relationship Specialty Start Date End Date Unallocated, Yashira Romeo MD [address] [place] [address] PCP - General Family Medicine 03/29/24 Monique Emmanuel MD [address] [place] [address] Referring Physician Family Medicine 03/29/24 Accounts Receivable Analyst Relationship Specialty Start Date End Date Erich Garcia MD [address] [place] [phone] PCP - General Family Medicine 07/24/24 Monique Emmanuel MD [address] [place] [address] Referring Physician Family Medicine 03/29/24 Monique Emmanuel MD [address] [place] [address] 21459 Referring Physician Family Medicine 07/24/24 Jaime Camargo DO [address] [facility] [place] [address] Otolaryngology 07/24/24 Accounts Receivable Analyst Relationship Specialty Start Date End Date Erich Garcia MD [address] [place] [phone] PCP - General Family Medicine 07/24/24 [place] [address] [place] [address] Referring Physician Family Medicine 03/29/24 Monique Emmanuel MD [address] [place] [phone] Referring Physician Family Medicine 07/24/24 Jaime Camargo DO [address] [facility] [place] [address] Otolaryngology 07/24/24 Accounts Receivable Analyst Relationship Specialty Start Date End Date Erich Garcia MD [address] [place] [address] PCP - General Family Medicine 07/24/24 [place] [address] [place] [address] Referring Physician Family Medicine 03/29/24 Monique Emmanuel MD [address] [place] [address] 87821 Referring Physician Family Medicine 07/24/24 Jaime Camargo DO [address] [facility] [place] [address] Otolaryngology 07/24/24 Accounts Receivable Analyst Relationship Specialty Start Date End Date Unallocated, Noms MD Ousmane [address] [place] [address] PCP - General Family Medicine 03/29/24 07/23/24 Erich Garcia MD [address] [place] [phone] PCP - General Family Medicine 07/24/24 [place] [address] [place] [address] Referring Physician Family Medicine 03/29/24 [place] [address] [place] [address] Referring Physician Family Medicine 07/24/24 Jaime Camargo DO [address] [place] [address] Otolaryngology 07/24/24 Accounts Receivable Analyst Relationship Specialty Start Date End Date Monique Emmanuel CNP [address] [place] [address] PCP - General Internal Medicine 12/17/24 Accounts Receivable Analyst Relationship Specialty Start Date End Date Monique Emmanuel CNP [address] [place] [phone] PCP - General Internal Medicine 12/17/24 Accounts Receivable Analyst Relationship Specialty Start Date End Date Monique Emmanuel CNP [address] [place] [phone] PCP - General Internal Medicine 12/17/24 Accounts Receivable Analyst Relationship Specialty Start Date End Date Monique Emmanuel CNP [address] [place] [phone] PCP - General Internal Medicine 12/17/24 Accounts Receivable Analyst Relationship Specialty Start Date End Date Monique Emmanuel CNP [address] [place] [phone] PCP - General Internal Medicine 12/17/24 Accounts Receivable Analyst Relationship Specialty Start Date End Date Monique Emmanuel CNP [address] [place] [address] PCP - General Internal Medicine 12/17/24 Accounts Receivable Analyst Relationship Specialty Start Date End Date Monique Emmanuel CNP [address] [place] [address] PCP - General Internal Medicine 12/17/24 Accounts Receivable Analyst Relationship Specialty Start Date End Date Monique Emmanuel CNP [address] [place] [address] PCP - General Internal Medicine 12/17/24 Team Status: Inactive Member Role Status Dates Monique Emmanuel , PROVIDER NETWORK [employer] Primary Care Provider Active Start: February 05, 2025 End: February 05, 2025 Radha Kong APRN Attending Provider Active Start: February 05, 2025 End: February 05, 2025 Accounts Receivable Analyst Relationship Specialty Start Date End Date Monique Emmanuel CNP [address] [place] [address] PCP - General Internal Medicine 12/17/24 Accounts Receivable Analyst Relationship Specialty Start Date End Date Monique Emmanuel CNP [address] [place], [place] [phone] PCP - General Internal Medicine 12/17/24 Accounts Receivable Analyst Relationship Specialty Start Date End Date Monique Emmanuel CNP [address] [place] [address] PCP - General Internal Medicine 12/17/24 Accounts Receivable Analyst Relationship Specialty Start Date End Date Erich Garcia MD [address] [place] [phone] PCP - General Family Medicine 07/24/24 Monique Emmanuel MD [address] [place] [address] 94490 Referring Physician Family Medicine 03/29/24 [place] [address] [place] [address] Referring Physician Family Medicine 07/24/24 Jaime Camargo, [address] [place] [address] Otolaryngology 07/24/24 Accounts Receivable Analyst Relationship Specialty Start Date End Date Erich Garcia MD [address] [place] [address] PCP - General Family Medicine 07/24/24 Monique Emmanuel MD [address] [place] [address] Referring Physician Family Medicine 03/29/24 Monique Emmanuel MD [address] [place] [address] Referring Physician Family Medicine 07/24/24 Jaime Camargo DO [address] [place] [address] Otolaryngology 07/24/24 Accounts Receivable Analyst Relationship Specialty Start Date End Date Monique Emmanuel CNP [address] [place] [address] PCP - General Internal Medicine 12/17/24 Accounts Receivable Analyst Relationship Specialty Start Date End Date Monique Emmanuel CNP [address] [place] [address] PCP - General Internal Medicine 12/17/24 Accounts Receivable Analyst Relationship Specialty Start Date End Date Monique Emmanuel CNP [address] [place] [address] PCP - General Internal Medicine 12/17/24 Accounts Receivable Analyst Relationship Specialty Start Date End Date Monique Emmanuel CNP [address] [place] [address] PCP - General Internal Medicine 12/17/24 Accounts Receivable Analyst Relationship Specialty Start Date End Date Monique Emmanuel CNP [address] [place] [address] PCP - General Internal Medicine 12/17/24 Accounts Receivable Analyst Relationship Specialty Start Date End Date Monique Emmanuel CNP [address] [place] [address] PCP - General Internal Medicine 12/17/24 Accounts Receivable Analyst Relationship Specialty Start Date End Date Monique Emmanuel CNP [address] [place], [place] [phone] PCP - General Internal Medicine 12/17/24 Team [...] Cohen MD Other Provider Active Start: Rogers devon 2024 Kvng Carcamo MD Other Provider Active [...] prosecute any alcohol or drug abuse patient.[facility] CenterIn the event this information is protected by the Federal Confidentiality of Alcohol and Drug Abuse Patient Records regulations: The Federal rules restrict any use of the information to criminally investigate or prosecute any alcohol or drug abuse patient.[facility] CenterIn the event this information is protected by the Federal Confidentiality of Alcohol and Drug Abuse Patient Records regulations: The Federal rules restrict any use of the information to criminally investigate or prosecute any alcohol or drug abuse patient.[facility] CenterIn the event this information is protected by the Federal Confidentiality of Alcohol and Drug Abuse Patient Records regulations: The Federal rules restrict any use of the information to criminally investigate or prosecute any alcohol or drug abuse patient.[facility] CenterIn the event this information is protected by the Federal Confidentiality of Alcohol and Drug Abuse Patient Records regulations: The Federal rules restrict any use of the information to criminally investigate or prosecute any alcohol or drug abuse patient.[facility] CenterIn the event this information is protected by the Federal Confidentiality of Alcohol and Drug Abuse Patient Records regulations: The Federal rules restrict any use of the information to criminally investigate or prosecute any alcohol or drug abuse patient.[facility] CenterIn the event this information is protected by the Federal Confidentiality of Alcohol and Drug Abuse Patient Records regulations: The Federal rules restrict any use of the information to criminally investigate or prosecute any alcohol or drug abuse patient.[facility] CenterIn the event this information is protected by the Federal Confidentiality of Alcohol and Drug Abuse Patient Records regulations: The Federal rules restrict any use of the information to criminally investigate or prosecute any alcohol or drug abuse patient.[facility] the event this information is protected by the Federal Confidentiality of Alcohol and Drug Abuse Patient Records regulations: The Federal rules restrict any use of the information to criminally investigate or prosecute any alcohol or drug abuse patient.[facility] CenterIn the event this information is protected by the Federal Confidentiality of Alcohol and Drug Abuse Patient Records regulations: The Federal rules restrict any use of the information to criminally investigate or prosecute any alcohol or drug abuse patient.[facility] CenterIn the event this information is protected by the Federal Confidentiality of Alcohol and Drug Abuse Patient Records regulations: The Federal rules restrict any use of the information to criminally investigate or prosecute any alcohol or drug abuse patient.[facility] CenterIn the event this information is protected by the Federal Confidentiality of Alcohol and Drug Abuse Patient Records regulations: The Federal rules restrict any use of the information to criminally investigate or prosecute any alcohol or drug abuse patient.[facility] CenterIn the event this information is protected by the Federal Confidentiality of Alcohol and Drug Abuse Patient Records regulations: The Federal rules restrict any use of the information to criminally investigate or prosecute any alcohol or drug abuse patient.[facility] CenterIn the event this information is protected by the Federal Confidentiality of Alcohol and Drug Abuse Patient Records regulations: The Federal rules restrict any use of the information to criminally investigate or prosecute any alcohol or drug abuse patient.[facility] CenterIn the event this information is protected by the Federal Confidentiality of Alcohol and Drug Abuse Patient Records regulations: The Federal rules restrict any use of the information to criminally investigate or prosecute any alcohol or drug abuse patient.[facility] CenterIn the event this information is protected by the Federal Confidentiality of Alcohol and Drug Abuse Patient Records regulations: The Federal rules restrict any use of the information to criminally investigate or prosecute any alcohol or drug abuse patient.[facility] CenterIn the event this information is protected by the Federal Confidentiality of Alcohol and Drug Abuse Patient Records regulations: The Federal rules restrict any use of the information to criminally investigate or prosecute any alcohol or drug abuse patient.[facility] CenterIn the event this information is protected by the Federal Confidentiality of Alcohol and Drug Abuse Patient Records regulations: The Federal rules restrict any use of the information to criminally investigate or prosecute any alcohol or drug abuse patient.[facility] CenterIn the event this information is protected by the Federal Confidentiality of Alcohol and Drug Abuse Patient Records regulations: The Federal rules restrict any use of the information to criminally investigate or prosecute any alcohol or drug abuse patient.[facility] CenterIn the event this information is protected by the Federal Confidentiality of Alcohol and Drug Abuse Patient Records regulations: The Federal rules restrict any use of the information to criminally investigate or prosecute any alcohol or drug abuse patient.[facility] CenterIn the event this information is protected by the Federal Confidentiality of Alcohol and Drug Abuse Patient Records regulations: The Federal rules restrict any use of the information to criminally investigate or prosecute any alcohol or drug abuse patient.[facility] CenterIn the event this information is protected by the Federal Confidentiality of Alcohol and Drug Abuse Patient Records regulations: The Federal rules restrict any use of the information to criminally investigate or prosecute any alcohol or drug abuse patient.[facility] CenterIn the event this information is protected by the Federal Confidentiality of Alcohol and Drug Abuse Patient Records regulations: The Federal rules restrict any use of the information to criminally investigate or prosecute any alcohol or drug abuse patient.[facility] CenterIn the event this information is protected by the Federal Confidentiality of Alcohol and Drug Abuse Patient Records regulations: The Federal rules restrict any use of the information to criminally investigate or prosecute any alcohol or drug abuse patient.[facility] CenterIn the event this information is protected by the Federal Confidentiality of Alcohol and Drug Abuse Patient Records regulations: The Federal rules restrict any use of the information to criminally investigate or prosecute any alcohol or drug abuse patient.[facility] CenterIn the event this information is protected by the Federal Confidentiality of Alcohol and Drug Abuse Patient Records regulations: The Federal rules restrict any use of the information to criminally investigate or prosecute any alcohol or drug abuse patient.[facility] CenterIn the event this information is protected by the Federal Confidentiality of Alcohol and Drug Abuse Patient Records regulations: The Federal rules restrict any use of the information to criminally investigate or prosecute any alcohol or drug abuse patient.[facility] CenterIn the event this information is protected by the Federal Confidentiality of Alcohol and Drug Abuse Patient Records regulations: The Federal rules restrict any use of the information to criminally investigate or prosecute any alcohol or drug abuse patient.[facility] CenterIn the event this information is protected by the Federal Confidentiality of Alcohol and Drug Abuse Patient Records regulations: The Federal rules restrict any use of the information to criminally investigate or prosecute any alcohol or drug abuse patient.[facility] CenterIn the event this information is protected by the Federal Confidentiality of Alcohol and Drug Abuse Patient Records regulations: The Federal rules restrict any use of the information to criminally investigate or prosecute any alcohol or drug abuse patient.[facility] FOR RECORDS PERTAINING TO PATIENTS WHO ARE [...] BE BASED ON THE PRIMARY CLINICAL RECORDS. [employer] [facility]. provides no warranty or guarantee of the accuracy or completeness of information in this document.
--- NOTE | 2025-07-25 18:49 | CT_ITS ---
[facility] [place] [id number] Patient Name: NOEL ROCHE MRN: [id number] date: 1990 Sex: F Assigned Patient Location: ED.MAIN Current Patient Location: ED.MAIN Accession/Order Number: [id number] Exam Date: 07/25/2025 19:05 Report Date: 07/25/2025 19:32 At the request of: ANISH VASQUEZ MD Procedure: CT head/brain wo con CT head/brain wo con 07/25/2025 7:10 PM SIGNS AND SYMPTOMS: migraine headache blurry vision TECHNIQUE:Multi-detector CT axial slices of the brain were obtained without IV contrast. CT was performed with one or more of the following dose reduction techniques: Automated exposure control, adjustment of the mA and/or kV according to patient size, or use of iterative reconstruction technique. COMPARISON: None. FINDINGS: There is no shift of the midline structures, acute intracranial bleeding, mass effects, or evidence of acute ischemia. The ventricular system is normal in size. The brainstem and the cerebellum are unremarkable. The visualized intraorbital contents, the visualized paranasal sinuses, and the infratemporal soft tissues show no acute abnormality. The osseous structures in the skull base and the calvarium show no abnormality. CT/CT head/brain wo con IMPRESSION: Normal noncontrasted CT brain. Impression dictated by: Fermín Wilks M.D. 07/25/2025 7:32 PM Dictation Location[facility] Electronically authenticated by: [id number] Date: 07/25/2025 19:32
--- NOTE | 2025-07-25 19:05 | ED.EYEPROB1 ---
HPI - Eye Problem General Chief complaint: Eye Problems Stated complaint: BLURRED VISION, PAIN IN L EYE/JAW Time Seen by Provider: 07/25/25 18:32 Source: patient Mode of arrival: Wheelchair Limitations: no limitations History of Present Illness HPI Narrative: The patient presenting to us with a left-sided headache associated with the blurry vision and photosensitivity in the left eye No other complaints no head injury Related Data Home Medications ?Medication ?Instructions ?Recorded ?Confirmed cholecalciferol (vitamin D3) 125 125 mcg PO QAM 10/26/24 03/05/25 mcg (5,000 unit) tablet escitalopram oxalate 20 mg tablet 20 mg PO QAM 10/26/24 03/05/25 glipizide 5 mg tablet 5 mg PO QAM 10/26/24 03/05/25 metformin 500 mg tablet 500 mg PO BID 10/26/24 03/05/25 trazodone 100 mg tablet 100 mg PO QPM PRN sleep 10/26/24 03/05/25 Allergies Allergy/AdvReac Type Severity Reaction Status Date / Time Sulfa (Sulfonamide Allergy Severe Hives Verified 07/25/25 18:04 Antibiotics) Review of Systems ROS Status of ROS 10 or more systems reviewed and unremarkable except as noted in history and below [facility] Medical History (Updated 07/12/25 @ 00:25 by Eun Tucker MD) Arthritis of right acromioclavicular joint ?M19.011 - Primary osteoarthritis, right shoulder (ICD-10) Acromioclavicular joint arthritis ?M19.019 - Primary osteoarthritis, unspecified shoulder (ICD-10) Accessory navicular bone of both feet ?Q74.2 - Other congenital malformations of lower limb(s), including pelvic girdle (ICD-10) Navicular fracture of ankle ?S92.253A - Displaced fracture of navicular [scaphoid] of unspecified foot, initial encounter for closed fracture (ICD-10) Osteoarthritis ?M19.90 - Unspecified osteoarthritis, unspecified site (ICD-10) Insomnia ?G47.00 - Insomnia, unspecified (ICD-10) Anxiety ?F41.9 - Anxiety disorder, unspecified (ICD-10) Restless leg ?G25.81 - Restless legs syndrome (ICD-10) GERD (gastroesophageal reflux disease) ?K21.9 - Gastro-esophageal reflux disease without esophagitis (ICD-10) Diabetes ?E11.9 - Type 2 diabetes mellitus without complications (ICD-10) Surgical History (Updated 10/26/24 @ 10:36 by Laura Cabral) History of cholecystectomy ?Z90.49 - Acquired absence of other specified parts of digestive tract (ICD-10) Family History (Updated 10/26/24 @ 10:32 by Laura Cabral) Other Family history of COPD (chronic obstructive pulmonary disease) Family history of coronary artery disease Family history of diabetes mellitus Family history of seizures Social History (Updated 10/26/24 @ 10:30 by Laura Cabral) Within the past year, how often did you have a drink containing alcohol: never Score interpretation: A score less than 3 is consistent with normal alcohol consumption. 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 Highest level of school completed/degree received: high school graduate Little interest or pleasure in doing things: not at all Feeling down, depressed, or hopeless: not at all Exam Narrative Exam Narrative: Nurses notes and vital signs reviewed and patient is not hypoxic. General: Well-appearing and in no apparent distress. Skin: Warm, dry, no pallor noted. No rash. Head: Normocephalic, atraumatic. Neck: Supple, non-tender. Eye: Pupils are equal, round and EOMI. No scleral icterus. Ears, Nose, Mouth, and Throat: TM are clear, no nasal mucosal hypertrophy. Oral mucosa is moist, no posterior oropharynx erythema, uvula is mid-line Cardiovascular: Regular Rate and Rhythm without murmur, gallop or rub. Respiratory: No accessory muscle use or respiratory distress. Lungs are clear to auscultation, no wheezing, rales or rhonchi Chest Wall: no tenderness Back: No midline thoracic or lumbar vertebral tenderness. No CVA tenderness Musculoskeletal: normal ROM, no calf or popliteal tenderness, no lower extremity edema/swelling GI: Abdomen is soft, non-distended. Normal bowel sounds. No masses appreciated. No tenderness to palpation. No rebound, guarding, or rigidity noted. Neurological: A&O x4. No cranial nerve dysfunction observed. No truncal ataxia. Moves all extremities. Sensation intact. Psychiatric: Cooperative and interactive. Normal mood and affect. Constitutional Vital Signs, click to edit/add: Last Vital Signs Temp 99.1 F 07/25/25 18:04 Pulse 85 07/25/25 18:04 Resp 18 07/25/25 18:04 BP 127/84 07/25/25 18:04 Pulse Ox 97 07/25/25 18:04 O2 Del Method Room Air 07/25/25 18:04 Course Vital Signs Vital signs: Vital Signs Temperature 99.1 F 07/25/25 18:04 Pulse Rate 85 07/25/25 18:04 Respiratory Rate 18 07/25/25 18:04 Blood Pressure 127/84 07/25/25 18:04 Pulse Oximetry 97 07/25/25 18:04 Oxygen Delivery Method Room Air 07/25/25 18:04 Temperature 99.1 F 07/25/25 18:04 Pulse Rate 85 07/25/25 18:04 Respiratory Rate 18 07/25/25 18:04 Blood Pressure 127/84 07/25/25 18:04 Pulse Oximetry 97 07/25/25 18:04 Oxygen Delivery Method Room Air 07/25/25 18:04 MDM - Eye Problem MDM Narrative Medical decision making narrative: The complete examination of the patient left eye was normal the patient presentation could be secondary migraine Discharge Plan Discharge Patient Disposition: Still a Patient
[2025-07-25 19:18] VITALS: BP 118/87; PULSE 67; TEMP 36.7; O2SAT 95
[2025-07-25 19:22] LABS: Hematocrit 40.0 % (36.0-48.0); Hemoglobin 12.2 g/dL (12.0-16.0); Immature Granulocytes Abs Auto 0.05 10^3/uL (0.00-0.03); Immature Granulocytes Pct Auto 0.4 % (0.0-0.5); Lymphocytes Absolute Auto 2.1 10^3/uL (1.2-3.8); Mean Corpuscular HGB Conc 30.5 g/dL (29.9-35.2); Mean Corpuscular Hemoglobin 24.8 pg (26.7-34.0); Mean Corpuscular Volume 81.5 fL (81.0-99.0); Platelet Count 388 10^3/uL (150-450); Red Blood Count 4.91 10^6/uL (4.20-5.40); White Blood Count 14.3 10^3/uL (4.0-11.0)
[2025-07-25 19:35] LABS: Alanine Aminotransferase 61 U/L (14-59); Albumin Globulin Ratio 0.7; Albumin Level 3.5 g/dL (3.4-5.0); Alkaline Phosphatase 75 U/L (46-116); Anion Gap 14.2; Aspartate Amino Transferase 25 U/L (15-37); Blood Urea Nitrogen 17.0 mg/dL (7.0-18.0); Calcium 9.0 mg/dL (8.5-10.1); Carbon Dioxide 25.6 mmol/L (21.0-32.0); Chloride 105 mmol/L (98-107); Estimated GFR (African America >60 (>=60 mL/min/1.73m^2); Estimated GFR (Non-African Ame >60 (>=60 mL/min/1.73m^2); Globulin 4.8 g/dL; Glucose 89 mg/dL (74-106); Potassium 3.8 mmol/L (3.5-5.1); Sodium 141 mmol/L (136-145); Total Protein 8.3 g/dL (6.4-8.2)
[2025-07-25] MEDS: KETOROLAC TROMETHAMINE 30 MG/ML VIAL 15 MG IVP (19:36)
--- NOTE | 2025-07-25 20:04 | ED.GENADUL1 ---
HPI HPI - General Adult General Chief complaint: Eye Problems Stated complaint: BLURRED VISION, PAIN IN L EYE/JAW Time Seen by Provider: 07/25/25 18:32 Source: patient Mode of arrival: Wheelchair Limitations: no limitations History of Present Illness HPI narrative: This 35-year-old female was signed out to me at shift change pending CT scan and lab work. She presents for evaluation of left-sided headache that started around 330 with some blurred vision and nausea. CT scan of the brain is negative for acute findings. Labs are reviewed. Her white count is mildly elevated at 14. She does not have any nuchal rigidity or sign of acute meningitis. She was evaluated after receiving Toradol and Zofran and states her symptoms have not improved. She will be given an IM injection of Phenergan and oral Lorena. I explained to her that her symptoms are likely a migraine. She is otherwise hemodynamically and neurologically stable. Related Data Home Medications ?Medication ?Instructions ?Recorded ?Confirmed cholecalciferol (vitamin D3) 125 125 mcg PO QAM 10/26/24 03/05/25 mcg (5,000 unit) tablet escitalopram oxalate 20 mg tablet 20 mg PO QAM 10/26/24 03/05/25 glipizide 5 mg tablet 5 mg PO QAM 10/26/24 03/05/25 metformin 500 mg tablet 500 mg PO BID 10/26/24 03/05/25 trazodone 100 mg tablet 100 mg PO QPM PRN sleep 10/26/24 03/05/25 Allergies Allergy/AdvReac Type Severity Reaction Status Date / Time Sulfa (Sulfonamide Allergy Severe Hives Verified 07/25/25 18:04 Antibiotics) Opioid HPI Opioid Management Most Recent Opioid Data: Last Pain Scale 10 Today, 20:14 Last MAR Pain Assessment Today, 19:36 Last ORT Total Score 1 11/05/24, 18:57 Last ORT Risk Category Low Risk 11/05/24, 18:57 PFSH PFSH Medical History (Updated 07/25/25 @ 20:06 by Eun Tucker MD) Arthritis of right acromioclavicular joint ?M19.011 - Primary osteoarthritis, right shoulder (ICD-10) Acromioclavicular joint arthritis ?M19.019 - Primary osteoarthritis, unspecified shoulder (ICD-10) Accessory navicular bone of both feet ?Q74.2 - Other congenital malformations of lower limb(s), including pelvic girdle (ICD-10) Navicular fracture of ankle ?S92.253A - Displaced fracture of navicular [scaphoid] of unspecified foot, initial encounter for closed fracture (ICD-10) Osteoarthritis ?M19.90 - Unspecified osteoarthritis, unspecified site (ICD-10) Insomnia ?G47.00 - Insomnia, unspecified (ICD-10) Anxiety ?F41.9 - Anxiety disorder, unspecified (ICD-10) Restless leg ?G25.81 - Restless legs syndrome (ICD-10) GERD (gastroesophageal reflux disease) ?K21.9 - Gastro-esophageal reflux disease without esophagitis (ICD-10) Diabetes ?E11.9 - Type 2 diabetes mellitus without complications (ICD-10) Surgical History (Updated 10/26/24 @ 10:36 by Laura Cabral) History of cholecystectomy ?Z90.49 - Acquired absence of other specified parts of digestive tract (ICD-10) Family History (Updated 10/26/24 @ 10:32 by Laura Cabral) Other Family history of COPD (chronic obstructive pulmonary disease) Family history of coronary artery disease Family history of diabetes mellitus Family history of seizures Social History (Updated 10/26/24 @ 10:30 by Laura Cabral) Within the past year, how often did you have a drink containing alcohol: never Score interpretation: A score less than 3 is consistent with normal alcohol consumption. 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 Highest level of school completed/degree received: high school graduate Little interest or pleasure in doing things: not at all Feeling down, depressed, or hopeless: not at all Exam Constitutional Vital Signs, click to edit/add: Last Vital Signs Temp 98.1 F 07/25/25 19:18 Pulse 67 07/25/25 19:18 Resp 19 07/25/25 19:18 BP 118/87 07/25/25 19:18 Pulse Ox 95 07/25/25 19:18 O2 Del Method Room Air 07/25/25 18:04 Course Vital Signs Vital signs: Vital Signs Temperature 99.1 F 07/25/25 18:04 Pulse Rate 85 07/25/25 18:04 Respiratory Rate 18 07/25/25 18:04 Blood Pressure 127/84 07/25/25 18:04 Pulse Oximetry 97 07/25/25 18:04 Oxygen Delivery Method Room Air 07/25/25 18:04 Temperature 98.1 F 07/25/25 19:18 Pulse Rate 67 07/25/25 19:18 Respiratory Rate 19 07/25/25 19:18 Blood Pressure 118/87 07/25/25 19:18 Pulse Oximetry 95 07/25/25 19:18 Oxygen Delivery Method Room Air 07/25/25 18:04 Medical Decision Making Lab Data Labs: Lab Results 07/25/25 Range/Units 19:00 WBC 14.3 H (4.0-11.0) 10^3/uL RBC 4.91 (4.20-5.40) 10^6/uL Hgb 12.2 (12.0-16.0) g/dL Hct 40.0 (36.0-48.0) % MCV 81.5 (81.0-99.0) fL MCH 24.8 L (26.7-34.0) pg MCHC 30.5 (29.9-35.2) g/dL RDW 15.4 H (11.0-15.0) % Plt Count 388 (150-450) 10^3/uL MPV 9.3 L (9.5-13.5) fL Neut % (Auto) 76.6 H (43.0-75.0) % Lymph % (Auto) 15.0 L (20.5-60.0) % Hamilton % (Auto) 4.9 (1.7-12.0) % Eos % (Auto) 2.7 (0.9-7.0) % Baso % (Auto) 0.4 (0.2-2.0) % Neut # (Auto) 10.9 H (1.4-6.5) 10^3/uL Lymph # (Auto) 2.1 (1.2-3.8) 10^3/uL Hamilton # (Auto) 0.7 (0.3-0.8) 10^3/uL Eos # (Auto) 0.4 (0.0-0.7) 10^3/uL Baso # (Auto) 0.1 (0.0-0.1) 10^3/uL Abs Immat Gran (auto) 0.05 H (0.00-0.03) 10^3/uL Imm/Tot Granulo (auto) 0.4 (0.0-0.5) % Sodium 141 (136-145) mmol/L Potassium 3.8 (3.5-5.1) mmol/L Chloride 105 (98-107) mmol/L Carbon Dioxide 25.6 (21.0-32.0) mmol/L Anion Gap 14.2 BUN 17.0 (7.0-18.0) mg/dL Creatinine 0.84 (0.55-1.02) mg/dL Est GFR ( Amer) >60 (>=60 mL/min/1.73m^2) Est GFR (Non-Af Amer) >60 (>=60 mL/min/1.73m^2) BUN/Creatinine Ratio 20.2 Glucose 89 (74-106) mg/dL Calcium 9.0 (8.5-10.1) mg/dL Total Bilirubin 0.8 (0.2-1.0) mg/dL AST 25 (15-37) U/L ALT 61 H (14-59) U/L Alkaline Phosphatase 75 (46-116) U/L Total Protein 8.3 H (6.4-8.2) g/dL Albumin 3.5 (3.4-5.0) g/dL Globulin 4.8 g/dL Albumin/Globulin Ratio 0.7 Serum HCG, Qual Negative (NEGATIVE) Discharge Plan Discharge Chief Complaint: Eye Problems Clinical Impression: Headache, migraine Patient Disposition: Home, Self-Care Time of Disposition Decision: 20:41 Condition: Good Prescriptions / Home Meds: No Action cholecalciferol (vitamin D3) 125 mcg (5,000 unit) tablet 125 mcg PO QAM escitalopram oxalate 20 mg tablet 20 mg PO QAM glipizide 5 mg tablet 5 mg PO QAM trazodone 100 mg tablet 100 mg PO QPM PRN (Reason: sleep) metformin 500 mg tablet 500 mg PO BID Print Language: Iranian Instructions: Migraine Headache (ED) Referrals: GUERRERO EMMANUEL [Primary Care Provider, Family Practice] - 1 week Discharge Date/Time: 07/25/25 20:58
[2025-07-25] MEDS: HYDROCODONE/ACET 5-325 MG TABLET 1 TAB PO (20:14)
[2025-07-25] MEDS: PROMETHAZINE HCL 25 MG/ML VIAL 12.5 MG IM (20:18)
--- NOTE | 2025-07-25 20:59 | PC.NURSE ---
i gave this patient verbal and written discharge orders and this patient voices yes to understanding these. at time of discharge this patient voices no concerns, needs and shows no signs of distress
== END 2025-07-25 20:58 | disposition home or self-care (01) ==
PROVIDERS: Emergency Medicine; Emergency Provider Emergency Medicine; PCP Nurse Practitioner Family
DX: G43.909 Migraine, unspecified, not intractable, without status migrainosus (principal); Z90.49 Acquired absence of other specified parts of digestive tract
CPT/HCPCS: 36415; 70450; 80053; 84703; 85025; 96372; 96374; 96375; 99284; 99285; J1885; J2405; J2550

== ENCOUNTER 2025-08-27 08:54 | Outpatient (RCR) | payer BC, SELFPAY | END 2025-09-13 08:50 | disposition home or self-care (01) | LOC: PT 08:54 | PROVIDERS: PCP Nurse Practitioner Family; Visit Provider Nurse Practitioner Family | DX: M79.604 Pain in right leg (principal); M25.551 Pain in right hip | CPT/HCPCS: 97010; 97014; 97035; 97110; 97140; 97161 ==

== ENCOUNTER 2025-08-27 09:50 | Outpatient (OUT) | payer BC, SELFPAY ==
--- OUTSIDE RECORDS SUMMARY | 2024-08-30 10:15 | XMS_ITS ---
Author Organization [facility] es Address [address] [place] [address] Care Team Providers Care Veterinarian Helper Name Role Phone Reinaldo Burns Primary Care Provider Lizzette Jones Unavailable [phone] Katrin Duran Unavailable [phone] REASON FOR VISIT PROPHY Encounters Encounter Location Date Provider Diagnosis [facility] [address] [place] [address] 08/30/2024 Katrin Duran Plan Of Treatment Next Appt Details Provider Name:Peter Ascencio, 1 04:30:00 PM, [address] [place], [address], Provider Name:Mey Duong , 09/12/2025 03:30:00 PM, [address], [place], [address], Progress Notes * IVAN ROCHEIDOB:1990 ([age] yo F)Acc No.[id number]:08/30/2024 Patient: Lewis ADISMELVINNOEL Provider: Rogers Chandler :1990 A ge:34 Y S ex:Female Date:08/30/2024 Address:[address] [place] [id number] Pcp:Reinaldo Burns Subjective: * Chief Complaints: * 1 . PROPHY. * Medical History: Objective: * Vitals: Assessment: Plan: * Treatment: * Images: * Electronic signature of Chanell Duran on 08/27/2025 at 09:58 AM EDT Sign off status: Pending * Provider: Rogers Chandler Date: 1 Generated for Jonnie leonard/Estella/Steven on: 0 08/27/2025 09:58 AM EDT
--- OUTSIDE RECORDS SUMMARY | 2024-12-21 10:30 | XMS_ITS ---
Author Organization [facility] Address [address] [place] [address] Care Team Providers Care Family Partner Name Role Phone Reinaldo Burns Primary Care Provider Lizzette Jones REASON FOR VISIT FILLING Encounters Encounter Location Date Provider Diagnosis [facility] [address] [place] [address] 12/21/2024 Lizzette Montoya Plan Of Treatment Next Appt Details Provider Name:Peter Ascencio, 1 04:30:00 PM, [address] [place], [address], Provider Name:Mey Duong , 09/12/2025 03:30:00 PM, [address], [place], [address], Progress Notes * HECTOR ROCHEB:1990 ([age] yo F)Acc No.[id number]:12/21/2024 Patient: Lewis NOEL FREEMAN Provider: Joseph MONTOYA DDS :1990 A ge:34 Y S ex:Female Date:12/21/2024 Address:[address] [place], [place] [phone] Pcp:Reinaldo Burns Subjective: * Chief Complaints: * 1 . FILLING. * Medical History: Objective: * Vitals: Assessment: Plan: * Treatment: * Images: * Electronic signature of Radha Montoya DDS on 08/27/2025 at 09:59 AM EDT Sign off status: Pending * Provider: Joseph MONTOYA DDS Date: 12/21/2024 Generated for Jonnie leonard/Estella/Steven on: 0 08/27/2025 09:59 AM EDT
--- OUTSIDE RECORDS SUMMARY | 2025-03-04 05:20 | XMS_ITS ---
Author Organization [facility] Address [address] [place] [address] Care Team Providers Care Lead Shop Operator Name Role Phone Gaurav Snyder [facility] [phone] REASON FOR VISIT right shoulder recheck - dos 11/05 Encounters Encounter Location Date Provider Diagnosis [facility] [facility] [address] [facility] [place] [address] 03/04/2025 Gaurav Snyder Plan Of Treatment No Information Progress Notes * IVAN ROCHEGABRIELB:1990 ([age] yo F)Acc No.[id number]:03/04/2025 Progress Notes Patient: NOEL PAZ Provider: Spencer Snyder MD :1990 A ge:34 Y S ex:Female Date:03/04/2025 Address:[address] [place], [place] [id number] Subjective: * Chief Complaints: * 1 . Right shoulder recheck - dos 11/05. * Medical History: Objective: * Vitals: Assessment: Plan: * Treatment: Forms: * Images: * Electronic signature of Chay Snyder MD on 08/27/2025 at 03:12 AM EDT Sign off status: Pending * Provider: Spencer Snyder MD Date: 03/04/2025 Generated for Jonnie leonard/Estella/eTlokeshitting on: 0 08/27/2025 03:12 AM EDT
--- OUTSIDE RECORDS SUMMARY | 2025-05-15 10:40 | XMS_ITS ---
Author Organization [facility] Address [address] [place] [address] Care Team Providers Care Private Watchman Name Role Phone Reinaldo Burns Primary Care Provider [phone] Lizzette Jones Unavailable [phone] Tina Crarasco Unavailable [phone] REASON FOR VISIT FILLING Encounters Encounter Location Date Provider Diagnosis [facility] [address] [place] [address] 05/15/2025 Tina Carrasco Plan Of Treatment Next Appt Details Provider Name:Peter Ascencio, 1 04:30:00 PM, [address] [place], [address], Provider Name:Mey Duong , 09/12/2025 03:30:00 PM, [address] [place], [address], Progress Notes * HECTOR ROCHEB:1990 ([age] yo F)Acc No.[id number]:05/15/2025 Patient: Lewis NOEL FREEMAN Provider: Rogers Carrasco :1990 A ge:34 Y S ex:Female Date:05/15/2025 Address:[address] [place] [id number] Pcp:Reinaldo Burns Subjective: * Chief Complaints: * 1 . FILLING. * Medical History: Objective: * Vitals: Assessment: Plan: * Treatment: * Images: * Electronic signature of Bhavin Carrasco , DMD on 08/27/2025 at 09:58 AM EDT Sign off status: Pending * Provider: Rogers Carrasco Date: 0 05/15/2025 Generated for Jonnie leonard/Estella/Steven on: 0 08/27/2025 09:58 AM EDT
--- OUTSIDE RECORDS SUMMARY | 2025-06-15 01:59 | XMS_ITS ---
Author Name Auto Generated Organization OHIP Support Name Relationship Address Phone Lonnie Paul Next of Kin [address] [place] [phone] + BOIES, LONNIE Next of Kin [address] [place] [phone] + BOIES, LUCÍA Next of Kin Unknown + BOIES, LONNIE Next of Kin [address] [place] [phone] + BOIES, LUCÍA Next of Kin Unknown + BOIES, LONNIE Next of Kin Unknown + BOIES, LONNIE Next of Kin Unknown + BOIES, LONNIE Next of Kin Unknown + BOIES, LONNIE Next of Kin [address] [place] [phone] + BOIES, LUCÍA Next of Kin Unknown + BOIES, LONNIE Next of Kin [address] [place] [phone] + BOIES, LUCÍA Next of Kin Unknown + BOIES, LONNIE Next of Kin [address] [place] [phone] + BOIES, LUCÍA Next of Kin Unknown + BOIES, LONNIE Next of Kin [address] [place] [phone] + BOIES, LUCÍA Next of Kin Unknown + BOIES, LONNIE Next of Kin [address] [place] [phone] + BOIES, LUCÍA Next of Kin Unknown + LONNIE PAUL Next of Kin [address] [place] [phone] + LUCÍA PAUL Next of Kin Unknown + Care Team Providers Care Chemical Tester Name Role Phone PATO AVELAR Attending Unavailable VALENTINO, PATO Johnson Attending Unavailable BROWN, PATO Johnson Attending Unavailable BROWN, PATO Johnson Attending Unavailable BROWN, PATO A Referring Unavailable BROWN, PATO A Attending Unavailable BROWN, PATO A Attending Unavailable BROWN, PATO A Attending Unavailable ELATTAR, OSAMA Attending Unavailable BROWN, PATO A Referring Unavailable ELATTAR, OSAMA Referring Unavailable ELATTAR, OSAMA Referring Unavailable SEAN MATA Referring Unavailab le ESPERANZASEAN ODONNELL Attending Unavailab le LIEN, MONIQUE S Primary Care Unavailable SEAN MATA Referring Unavailab le LIEN, MONIQUE S Primary Care Unavailable SEAN MATA Attending Unavailab le SEAN MATA Referring Unavailab le ESPERANZASEAN ODONNELL Attending Unavailab le ESPERANZASEAN ODONNELL Admitting Unavailab le LIEN, MONIQUE S Primary Care Unavailable LIEN, MONIQUE S Primary Care Unavailable SEAN MATA Attending Unavailab le LIEN, MONIQUE S Primary Care Unavailable ESPERANZASEAN Referring Unavailab le LIEN, MONIQUE S Primary Care Unavailable SEAN MATA Attending Unavailab le LIEN, MONIQUE S Primary Care Unavailable SEAN MATA Referring Unavailab le LIEN, MONIQUE S Primary Care Unavailable SELF Referring Unavailable SEAN MATA Attending Unavailab le LIEN, MONIQUE S Primary Care Unavailable LIEN, MONIQUE S Primary Care Unavailable SELF Referring Unavailable ESPERANZASEAN Attending Unavailab le LIEN, MONIQUE S Primary Care Unavailable SELF Referring Unavailable LIEN, MONIQUE S Primary Care Unavailable SELF Referring Unavailable ESPERANZASEAN ODONNELL Attending Unavailab le LIEN, MONIQUE S Primary Care Unavailable SELF Referring Unavailable ESPERANZASEAN ODONNELL Attending Unavailab le LIEN, MONIQUE S Primary Care Unavailable SELF Referring Unavailable LIEN, MONIQUE S Primary Care Unavailable ESPERANZASEAN ODONNELL Referring Unavailab le LIEN, MONIQUE S Primary Care Unavailable LIEN, MONIQUE S Primary Care Unavailable SEAN MATA Referring Unavailab sera EMMANUEL, MONIQUE S Primary Care Unavailable LIEN, MONIQUE S Primary Care Unavailable SEAN MATA Attending Unavailab Maryanne Bailon Consulting Unavailable Neo Mclaughlin Admitting Unavailable Mitch Galaviz Attending Unavailab le Lien, Monique Alicia Primary Care Unavailable Maryanne Unger Consulting Unavailable Balaji Cohen Unavailable Kvng Carcamo Consulting Inge Salinas Consulting Unavailable Merry Nieves Consulting Unavailable Paot Avelar Attending Unavailable Pato Avelar Admitting Unavailable PROBLEMS DATE TYPE CONDITION / CODE ATTENDING STATUS [facility] 06/15/2025 Unknown Type 2 diabetes mellitus without complications / E11.9(ICD-10) Guillaume Mitch E [facility] 06/15/2025 Unknown Chest pain, unspecified / R07.9(ICD-10) Yannamoriah Mitch E [facility] 06/15/2025 Unknown Morbid (severe) obesity due to excess calories / E66.01(ICD-10) [facility] Mitch Angus [facility] 06/15/2025 Unknown Body mass index [BMI] 60.0-69.9, adult / Z68.44(ICD-10) [facility] Mitch [facility] 06/15/2025 Unknown Obstructive slee p apnea (adult) (pediatric) / G47.33(ICD-10) Yannamoriah Mitch E [facility] 05/16/2025 Active S/P foot surgery , right / Z98.890(ICD-10) SEAN MATA Active [facility] 05/16/2025 Active Chronic pain of right ankle / M25.571(ICD-10) SEAN MATA Active [facility] 05/16/2025 Active Chronic pain of right ankle / G89.29(ICD-10) SEAN MATA Active [facility] 04/25/2025 Active Sinus tarsitis, right / M25.571(ICD-10) SEAN MATA Active [facility] 04/16/2025 Active Pain in right fo ot / M79.671(ICD-10) SEAN MATA Active [facility] 12/31/2024 Active Post-op pain / G89.18(ICD-10) SEAN MATA Active [facility] 12/31/2024 Active 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) SEAN MATA Active [facility] 12/28/2024 Active Pre-op evaluatio n / Z01.818(ICD-10) NA Active [facility] 12/12/2024 Active Pain / R52(ICD-10) NA Active [facility] 11/26/2024 Admitting Diagnosis Other congenital malformations of lower limb(s), 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) KAT HER Active [facility] 11/26/2024 Admitting Diagnosis Pain in right foot / M79.671(ICD-10) KAT HER Active [facility] 11/26/2024 Admitting Diagnosis Posterior tibial tendinitis, right leg / M76.821(ICD-10) [facility] PROCEDURES No Procedure Records Found RESULTS CT ANGIO CHEST PE PROTOCOL Observed: 12:08 PM Status: COMPLETED [facility] [place] [address] CT Scan Report Signed Patient: Noel Paul MR#: [id number] : 1990 Acct:[id number] Age/Sex: 34 / F ADM Date: 06/15/25 Loc: Room: [address] [place] [address] Type: ADM INOo Attending Dr: Mitch Galaviz MD Copies to: Mitch Galaviz MD Ordering Provider: Mitch Galaviz MD Date of Service: 06/16/25 CT/CT angio chest PE protocol: Chest pain, widened mediastinum, R heart enlarged CT ANGIOGRAM OF THE CHEST, PULMONARY EMBOLISM PROTOCOL: CLINICAL INFORMATION: Shortness breath, chest pain for 3 days, mediastinum TECHNIQUE: Following intravenous injection of contrast CT scans of the chest were obtained using pulmonary embolism protocol. Coronal and sagittal reconstructed images, as well as volume rendered CT pulmonary angiographic images were also submitted.The CT exam was performed using one or more of the following dose reduction techniques: Automated exposure control, adjustment of the MA and/or Kv according to patient size, or use of the iterative reconstruction technique. FINDINGS: Pulmonary Vasculature: Contrast bolus is suboptimal for the evaluation of pulmonary embolism. Pulmonary trunk appears nondilated. No large saddle embolism. Mediastinum : Thoracic aorta is normal in caliber. Heart is prominent size unclear if this is due to low lung volumes and technique. No pericardial effusion. No lymphadenopathy. The esophagus is grossly unremarkable. Lungs: No focal consolidation, pneumothorax or pleural effusion. Upper abdomen: Low attenuation liver can be seen with fatty infiltration. Soft tissue/bones: Soft tissues surrounding the chest wall demonstrate no acute findings. Minor degenerative changes of the thoracic spine. CT/CT angio chest PE protocol IMPRESSION: SUBOPTIMAL TIMING CONTRAST BOLUS. NO DEFINITE LARGE SADDLE EMBOLISM UNREMARKABLE AORTIC CALIBER. SUSPECT CARDIOMEGALY. Impression dictated by: Joshua Prince M.D. 06/16/2025 12:11 PM Dictation Location: [place] [address] Transcribed By: [facility] 06/16/25 1211 Dictated By: Joshua Prince MD 06/16/25 1208 Signed By: <Electronically signed by Joshua Prince MD in OV> 06/16/25 1211 GLUCOSE POCT GLUCOMETERS Collected: 06/16/2025 11:41 AM Status: F Source: [facility] TYPE CODE TESTS RESULT OUT OF RANGE REFERENCE UNITS LAB GLUPOC Glucose Poc Glucometers 106 mg/dL Result Comment: Random Gluco se Reference Range is dependent on time and content of last meal. Glucose of more than 200 mg/dL in a nonstressed, ambulatory subject supports the diagnosis of Diabetes Mellitus. PERFORMED BY: [facility] [address] [place] [address] PATHOLOGIST FURNACE COMBINATION ANALYST CHANEL ROMERO M.D. Performed By: #### GLULS ### # Point of Care testing , ECG 12 LEAD ECG Observed: 06/16/2025 7:24 AM Status: COMPLETED Source: [facility] [place] [address] [place], [place] [id number] Electrocardiograph Report Signed Patient: Noel Paul MR#: [id number] : 1990 Acct:[id number] Age/Sex: 34 / F ADM Date: 06/15/25 Loc: Room: [address] [place] [address] Type: ADM INOo Attending Dr: Mitch Galaviz MD Ordering Provider: Mitch Galaviz MD Date of Service: 06/16/25 ECG/ECG 12 lead ECG: Chest Pain Copies to: Test Reason : Blood Pressure : */* mmHG Vent. Rate : 75 BPM Atrial Rate : 75 BPM P-R Int : 166 ms QRS Dur : 80 ms QT Int : 362 ms P-R-T Axes : 52 25 10 degrees QTcB Int : 404 ms Normal sinus rhythm Normal ECG Confirmed by Inge Adler ([id number]) on 06/16/2025 10:58:02 AM Referred By: Electronically Signed By: Inge Adler Transcribed By: MUS Signed By Inge Adler MD 5 [id number] GLUCOSE POCT GLUCOMETERS Collected: 06/16/2025 6:21 A M Status: F Source: [facility] TYPE CODE TESTS RESULT OUT OF RANGE REFERENCE UNITS LAB GLUPOC Glucose Poc Glucometers 124 mg/dL Result Comment: Random Gluco se Reference Range is dependent on time and content of last meal. Glucose of more than 200 mg/dL in a nonstressed, ambulatory subject supports the diagnosis of Diabetes Mellitus. LAB COMM1 Commemt1 Glu2: Cleaned Meter Result Comment: PERFORMED BY : [place] [address] PATHOLOGIST FURNACE COMBINATION ANALYST CHANEL ROMERO M.D. Performed By: #### GLULS ### # Point of Care testing , TROPONIN I HIGH SENSITIVITY Collected: 06/16/2025 5:0 9 AM Status: F Source: [facility] TYPE CODE TESTS RESULT OUT OF RANGE REFERENCE UNITS LAB HS TROP Troponin I High Sensitivity 3 Normal 0-15 Result Comment: The Troponin units of report have been changed to meet the Chest Pain Accreditation requirement, element EC5.M1l2. Troponin units are changed from pg/ml to ng/L. Also, the decimal is removed and results are in whole numbers. PERFORMED BY: [place] [address] PATHOLOGIST FURNACE COMBINATION ANALYST CHANEL ROMERO M.D. Performed By: #### HS TROP # ### [place] [id number] [facility] GLUCOSE POCT GLUCOMETERS Collected: 06/16/2025 1:59 A M Status: F Source: [facility] TYPE CODE TESTS RESULT OUT OF RANGE REFERENCE UNITS LAB GLUPOC Glucose Poc Glucometers 125 mg/dL Result Comment: Random Gluco se Reference Range is dependent on time and content of last meal. Glucose of more than 200 mg/dL in a nonstressed, ambulatory subject supports the diagnosis of Diabetes Mellitus. LAB COMM1 Commemt1 Glu2: Cleaned Meter Result Comment: PERFORMED BY : [place] [address] PATHOLOGIST FURNACE COMBINATION ANALYST CHANEL ROMERO M.D. Performed By: #### GLULS ### # Point of Care testing , GLUCOSE POCT GLUCOMETERS Collected: 06/15/2025 8:23 P M Status: F Source: [facility] TYPE CODE TESTS RESULT OUT OF RANGE REFERENCE UNITS LAB GLUPOC Glucose Poc Glucometers 111 mg/dL Result Comment: Random Gluco se Reference Range is dependent on time and content of last meal. Glucose of more than 200 mg/dL in a nonstressed, ambulatory subject supports the diagnosis of Diabetes Mellitus. LAB COMM1 Commemt1 Glu2: Cleaned Meter Result Comment: PERFORMED BY : [place] [id number] PATHOLOGIST FURNACE COMBINATION ANALYST CHANEL ROMERO M.D. Performed By: #### GLULS ### # Point of Care testing , GLUCOSE POCT GLUCOMETERS Collected: 06/15/2025 4:41 P M Status: F Source: [facility] TYPE CODE TESTS RESULT OUT OF RANGE REFERENCE UNITS LAB GLUPOC Glucose Poc Glucometers 108 mg/dL Result Comment: Random Gluco se Reference Range is dependent on time and content of last meal. Glucose of more than 200 mg/dL in a nonstressed, ambulatory subject supports the diagnosis of Diabetes Mellitus. PERFORMED BY: [place] [id number] PATHOLOGIST FURNACE COMBINATION ANALYST CHANEL ROMERO M.D. Performed By: #### GLULS ### # Point of Care testing , TROPONIN I HIGH SENSITIVITY Collected: 06/15/2025 4:1 0 PM Status: F Source: [facility] TYPE CODE TESTS RESULT OUT OF RANGE REFERENCE UNITS LAB HS TROP Troponin I High Sensitivity 3 Normal 0-15 Result Comment: The Troponin units of report have been changed to meet the Chest Pain Accreditation requirement, element EC5.M1l2. Troponin units are changed from pg/ml to ng/L. Also, the decimal is removed and results are in whole numbers. PERFORMED BY: [place] [address] PATHOLOGIST FURNACE COMBINATION ANALYST CHANEL ROMERO M.D. Performed By: #### HS TROP # ### [place] [id number] [facility] GLUCOSE POCT GLUCOMETERS Collected: 06/15/2025 3:33 P M Status: F Source: [facility] TYPE CODE TESTS RESULT OUT OF RANGE REFERENCE UNITS LAB GLUPOC Glucose Poc Glucometers 74 mg/dL Result Comment: Random Gluco se Reference Range is dependent on time and content of last meal. Glucose of more than 200 mg/dL in a nonstressed, ambulatory subject supports the diagnosis of Diabetes Mellitus. PERFORMED BY: [place] [address] PATHOLOGIST FURNACE COMBINATION ANALYST CHANEL ROMERO M.D. Performed By: #### GLULS ### # Point of Care testing , GLUCOSE POCT GLUCOMETERS Collected: 06/15/2025 2:57 P M Status: F Source: [facility] TYPE CODE TESTS RESULT OUT OF RANGE REFERENCE UNITS LAB GLUPOC Glucose Poc Glucometers 88 mg/dL Result Comment: Random Gluco se Reference Range is dependent on time and content of last meal. Glucose of more than 200 mg/dL in a nonstressed, ambulatory subject supports the diagnosis of Diabetes Mellitus. LAB COMM1 Commemt1 Glu2: Cleaned Meter Result Comment: PERFORMED BY : [address] [address] PATHOLOGIST FURNACE COMBINATION ANALYST CHANEL ROMERO M.D. Performed By: #### GLULS ### # Point of Care testing , GLUCOSE POCT GLUCOMETERS Collected: 06/15/2025 2:01 P M Status: F Source: [facility] TYPE CODE TESTS RESULT OUT OF RANGE REFERENCE UNITS LAB GLUPOC Glucose Poc Glucometers 79 mg/dL Result Comment: Random Gluco se Reference Range is dependent on time and content of last meal. Glucose of more than 200 mg/dL in a nonstressed, ambulatory subject supports the diagnosis of Diabetes Mellitus. LAB COMM1 Commemt1 Glu2: Cleaned Meter Result Comment: PERFORMED BY : [address] [address] PATHOLOGIST FURNACE COMBINATION ANALYST CHANEL ROMERO M.D. Performed By: #### GLULS ### # Point of Care testing , GLUCOSE POCT GLUCOMETERS Collected: 06/15/2025 12:52 PM Status: F Source: [facility] TYPE CODE TESTS RESULT OUT OF RANGE REFERENCE UNITS LAB GLUPOC Glucose Poc Glucometers 64 mg/dL Result Comment: Random Gluco se Reference Range is dependent on time and content of last meal. Glucose of more than 200 mg/dL in a nonstressed, ambulatory subject supports the diagnosis of Diabetes Mellitus. PERFORMED BY: [address] [address] PATHOLOGIST FURNACE COMBINATION ANALYST CHANEL ROMERO M.D. Performed By: #### GLULS ### # Point of Care testing , ECH ECHO TRANSTHORACIC Observed: 025 12:43 PM Status: COMPLETED Source: [facility] [place] [address] [place] [id number] Echocardiogram Signed Patient: Noel Paul MR#: [id number] : 1990 Acct:[id number] Age/Sex: 34 / F ADM Date: 06/15/25 Loc: Room: [address] [place] [address] Type: ADM INOo Attending Dr: Mitch Galaviz MD Ordering Provider: Inge Adler MD Date of Service: 06/15/25 [facility] echo transthoracic: Chest pain Copies to: Inge Adler MD BSA: 2.4 m2 BP: 108/70 mmHg HR: 79 Reason For Study: Chest pain History: DM, morbid obesity, AQUILES Interpretation Summary Ejection Fraction = 60-65%. No regional wall motion abnormalities noted. A variety of Doppler measurements indicate normal left ventricular diastolic function. The right ventricle is moderately dilated. The right ventricular systolic function is normal. Inadequate TR to estimate RVSP. There is no comparison study available. Procedure/Quality: A two-dimensional transthoracic echocardiogram with color flow, Doppler and injection of contrast agent Definity was performed. The study was technically suboptimal in quality due to patient body habitus . Left Ventricle: The left ventricular size is normal. The left ventricular thickness is normal. Ejection Fraction = 60-65%. A variety of Doppler measurements indicate normal left ventricular diastolic function. No regional wall motion abnormalities noted. Left Atrium: The left atrium appears normal in size. Right Atrium: The right atrium appears normal in size. Right Ventricle: The right ventricle is moderately dilated. The right ventricular systolic function is normal. Aortic Valve: The aortic valve is normal in structure. No hemodynamically significant valvular aortic stenosis. No aortic regurgitation is present. Mitral Valve: The mitral valve is normal in structure. No significant mitral valve stenosis. There is no mitral regurgitation noted. Tricuspid Valve: The tricuspid valve is normal in structure. No tricuspid regurgitation. Inadequate TR to estimate RVSP. Pulmonic Valve: The pulmonic valve is not well visualized. No significant pulmonic regurgitation. Arteries: The aortic root is normal size. Pericardium/Pleura: No pericardial effusion seen. IVC/Hepatic Veins: The inferior vena cava is normal in size, with a normal collapsibility index. Measurements with Normals IVSd: 1.5 cm (0.7-1.1 cm)LVIDd: 4.6 cm (3.7-5.4 cm) LVPWd: 1.3 cm (0.7-1.1 cm)LVIDs: 3.1 cm (2.3-3.6 cm) LA dimension: 4.5 cm (2.3-4.0 cm)Ao root diam: 2.5 cm(2.0-3.6 cm) asc Aorta Diam: 3.4 cm(2.1-3.4cm) Doppler with Normals LV V1 max: 118.0 cm/sec (0.7-1.7m/s)MV E max mariana: 90.9 cm/sec(0.8-1.3m/s) MV A max mariana: 62.8 cm/sec(0.0-0.0m/s) MV E/A: 1.4 (<1.5) MMode/2D Measurements Calculations RVDd: 3.8 cm FS: 32.6 % Ao root area: LVOT diam: 2.3 cm TAPSE: 3.5 cm EDV(Teich): 4.9 cm2 LVOT area: 4.2 cm2 RV S Mariana: 97.3 ml 18.8 cm/sec ESV(Teich): 37.9 ml EF(Teich): 61.0 % __ LVLd ap4: 8.5 cm SV(MOD-sp4): LAV(MOD-sp4): LA A2 area: 17.7 cm2 EDV(MOD-sp4): 79.6 ml 48.8 ml 124.0 ml LAV(MOD-sp2): LA A4 area: 20.2 cm2 LVLs ap4: 7.0 cm 44.1 ml LA length (vol): ESV(MOD-sp4): 6.9 cm 44.4 ml LA vol: 43.9 ml EF(MOD-sp4): 64.2 % LA vol index: 18.4 ml/m2 Doppler Measurements Calculations MV dec time: 0.20 sec MV V2 max: E/E' lat: MV dec slope: 97.5 cm/sec 6.8 MV max P.8 mmHg E/E' med: 462.0 cm/sec2 MV V2 mean: 6.5 54.6 cm/sec MV mean P.0 mmHg MV V2 VTI: 25.1 cm MVA(VTI): 4.1 cm2 __ Ao V2 max: LV V1 max P.0 cm/sec 5.6 mmHg Ao max P.3 mmHg LV V1 mean PG: Ao mean P.0 mmHg 4.0 mmHg Ao V2 mean: LV V1 mean: 121.0 cm/sec 91.0 cm/sec Ao V2 VTI: 34.6 cm LV V1 VTI: 24.8 cm CARMELO(I,D): 3.0 cm2 CARMELO(V,D): 2.8 cm2 Transcribed By: ANA Performed At: 06/15/25 1243 Signed By: Inge Adler MD 06/15/25 1758 GLUCOSE POCT GLUCOMETERS Collected: 06/15/2025 11:21 AM Status: F Source: [facility] TYPE CODE TESTS RESULT OUT OF RANGE REFERENCE UNITS LAB GLUPOC Glucose Poc Glucometers 94 mg/dL Result Comment: Random Gluco se Reference Range is dependent on time and content of last meal. Glucose of more than 200 mg/dL in a nonstressed, ambulatory subject supports the diagnosis of Diabetes Mellitus. PERFORMED BY: [place] [address] PATHOLOGIST FURNACE COMBINATION ANALYST CHANEL ROMERO M.D. Performed By: #### GLULS ### # Point of Care testing , ECG 12 LEAD ECG Observed: 06/15/2025 10:30 AM Status: COMPLETED Source: [facility] [place] [address] Electrocardiograph Report Signed Patient: Noel Paul MR#: [id number] : 1990 Acct:[id number] Age/Sex: 34 / F ADM Date: 06/15/25 Loc: Room: [address] [place] [address] Type: ADM INOo Attending Dr: Mitch Galaviz MD Ordering Provider: Mitch Galaviz MD Date of Service: 06/15/25 ECG/ECG 12 lead ECG: cp Copies to: Test Reason : Blood Pressure : */* mmHG Vent. Rate : 87 BPM Atrial Rate : 87 BPM P-R Int : 154 ms QRS Dur : 84 ms QT Int : 374 ms P-R-T Axes : 47 17 10 degrees QTcB Int : 450 ms Normal sinus rhythm Normal ECG Confirmed by Inge Adler ([id number]) on 06/15/2025 7:22:48 PM Referred By: Electronically Signed By: Inge Adler Transcribed By: MUS Signed By Inge Adler MD 1921 COMPLETE BLOOD COUNT AUTO DIFF Collected: 06/15/2025 7:42 AM Status: F Source: [facility] TYPE CODE TESTS RESULT OUT OF RANGE REFERENCE UNITS LAB WBC White Blood Count 11.2 Normal 3.8-11.6 [CFU]/mL LAB UNWBC Uncorrected WBC 11.2 Normal 3.8-11.6 10*3/uL LAB RBC Red Blood Count 4.65 Normal 3.60-5.00 10*6/u L LAB HGB Hemoglobin 11.6 Low 11.8-15.4 g/dL LAB HCT Hematocrit 36.5 Normal 34.0-46.4 % LAB MCV Mean Corpuscular Volume 78.4 Low 80-100 fL LAB MCH Mean Corpuscular Hemoglobin 25.0 Normal 24.7-34.3 pg LAB MCHC Mean Corpuscular HGB Conc 31.9 Low 32.0-35.0 g/dL LAB RDW Red Cell Distribution Width 17.1 High 11.9-15.3 % LAB PLT Platelet Count 349 Normal 150-450 10*3/uL LAB MPV Mean Platelet Volume 7.4 Normal 6.3-10.7 fL LAB NE% Neutrophils % (Auto) 74.0 . % LAB LY% Lymphocytes % (Auto) 16.9 . % LAB MO% Monocytes % (Auto) 5.6 . % LAB EO% Eosinophils % (Auto) 2.8 . % LAB BA% Basophils % (Auto) 0.7 . % LAB NRBC% NRBC% 0.1 Normal 0-0.5 /100{WBC} LAB NE# Neutrophils # (Auto) 8.3 High 1.8-7.7 10*3/uL LAB LY# Lymphocytes # (Auto) 1.9 Normal 1.00-4.8 10*3/uL LAB MO# Monocytes # (Auto) 0.6 Normal 0.0-0.8 10*3/uL LAB EO# Eosinophils # (Auto) 0.3 Normal 0.0-0.45 10*3/uL LAB BA# Basophils # (Auto) 0.1 Normal 0.0-0.2 10*3/uL Result Comment: PERFORMED BY : [place] [address] PATHOLOGIST FURNACE COMBINATION ANALYST CHANEL ROMERO M.D. Performed By: #### MG, CBC, A1C WTH eA, HS TROP, LIPID, BMP #### [facility] [address] [place] [address] [facility] TROPONIN I HIGH SENSITIVITY Collected: 06/15/2025 7:4 2 AM Status: F Source: [facility] TYPE CODE TESTS RESULT OUT OF RANGE REFERENCE UNITS LAB HS TROP Troponin I High Sensitivity 4 Normal 0-15 Result Comment: The Troponin units of report have been changed to meet the Chest Pain Accreditation requirement, element EC5.M1l2. Troponin units are changed from pg/ml to ng/L. Also, the decimal is removed and results are in whole numbers. PERFORMED BY: [place] [address] PATHOLOGIST FURNACE COMBINATION ANALYST CHANEL ROMERO M.D. Performed By: #### MG, CBC, A1C WTH eA, HS TROP, LIPID, BMP #### [facility] [address] [place] [address] [facility] BASIC METABOLIC PANEL Collected: 06/15/2025 7:42 AM Status: F Source: [facility] TYPE CODE TESTS RESULT OUT OF RANGE REFERENCE UNITS LAB GLU Glucose 123 High 70-100 mg/dL Result Comment: Random Gluco se Reference Range is dependent on time and content of last meal. Glucose of more than 200 mg/dL in a nonstressed, ambulatory subject supports the diagnosis of Diabetes Mellitus. ADA recommended reference range LAB BUN Blood Urea Nitrogen 17 Normal 7-25 mg/dL LAB CREATT Creatinine 0.86 Normal 0.60-1.20 mg/dL LAB GFReNR Estimated GFR >60.0 LAB NA Sodium 140 Normal 136-145 mmol/L LAB K Potassium 4.0 Normal 3.5-5.1 mmol/L LAB CL Chloride 103 Normal 98-107 mmol/L LAB CO2 Carbon Dioxide 30.9 Normal 21.0-31.0 mmol/L LAB GAP Anion Gap 10.1 Normal 6.0-15.0 LAB CA Calcium 8.7 Normal 8.6-10.3 mg/dL LAB CRCLPHA Creatinine [facility] 129.66 Performed By: #### MG, CBC, A1C WTH eA, HS TROP, LIPID, BMP #### [facility] [address] [id number] [facility] MAGNESIUM Collected: 7:42 AM Status: F Source: [facility] TYPE CODE TESTS RESULT OUT OF RANGE REFERENCE UNITS LAB MG Magnesium 1.8 Low 1.9-2.7 mg/dL Performed By: #### MG, CBC, A1C WTH eA, HS TROP, LIPID, BMP #### [facility] [address] [id number] [facility] LIPID PANEL Collected: 06/15/2025 7:42 AM Status: F Source: [facility] TYPE CODE TESTS RESULT OUT OF RANGE REFERENCE UNITS LAB CHOL Cholesterol 158 Normal 140-200 mg/dL Result Comment: Chol less th an 200 mg/dl low risk Chol 201-239 mg/dl borderline risk Chol 240 mg/dl and greater high risk LAB HDL HDL Cholesterol 31 Normal 23-92 mg/dL Result Comment: HDL CHOL ATP -III CLASSIFICATION Cardiovascular Risk HDL > or equal to 60 mg/dL LOW HDL < 40 mg/dL HIGH LAB TRIG W REF Triglyceride w/Reflex 197 High 0-149 mg/dL Result Comment: TRIG ATP III CLASSIFICATION TRIG less than 150 mg/dL Normal TRIG 150-199 mg/dL Borderline high TRIG 200-500 mg/dL High TRIG greater than 500 mg/dL Very high Standard traceable to the Center for Disease Conrtrol and Prevention (CDC) test method. LAB LDLC LDL Cholesterol,Calc ulated 88 Normal 0-100 mg/dL Result Comment: LDL ATP III CLASSIFICATION LDL less than 100 mg/dL Optimal LDL 100-129 mg/dL Near or above optimal LDL 130-159 mg/dL Borderline high LDL 160-189 mg/dL High LDL greater than 189 mg/dL Very high LAB VLDL VLDL CHOLESTEROL 39 mg/dL LAB CHLHDL Chol/HDL Ratio 5.1 <5.0 Result Comment: PERFORMED BY : [place] [id number] PATHOLOGIST FURNACE COMBINATION ANALYST CHANEL ROMERO M.D. Performed By: #### MG, CBC, A1C WTH eA, HS TROP, LIPID, BMP #### [place] [id number] [facility] A1C WITH ESTIMATED AVERAGE GLU Collected: 06/15/2025 7:42 AM Status: F Source: [facility] TYPE CODE TESTS RESULT OUT OF RANGE REFERENCE UNITS LAB .A1C Hemoglobin A1C 6.4 High 4.3-5.6 % Result Comment: Increased ri sk for diabetes: 5.7 - 6.4 diabetes: >6.4 glycemic control for adults with diabetes: <7.0 LAB eAG Estimated Average Glucose 137 mg/dL Result Comment: PERFORMED BY : [place] [address] PATHOLOGIST FURNACE COMBINATION ANALYST CHANEL ROMERO M.D. Performed By: #### MG, CBC, A1C WTH eA, HS TROP, LIPID, BMP #### [place] [id number] [facility] ECG 12 LEAD ECG Observed: 06/15/2025 7:03 AM Status: COMPLETED Source: [facility] [place] [address] Electrocardiograph Report Signed Patient: Noel Paul MR#: [id number] : 1990 Acct:[id number] Age/Sex: 34 / F ADM Date: 06/15/25 Loc: Room: [address] [place] [address] Type: ADM INOo Attending Dr: Mitch Galaviz MD Ordering Provider: Nini Lama CAREER DEVELOPMENT COORDINATOR/TEACHER Date of Service: 06/15/25 ECG/ECG 12 lead ECG: chest pain Copies to: Test Reason : Blood Pressure : */* mmHG Vent. Rate : 76 BPM Atrial Rate : 76 BPM P-R Int : 168 ms QRS Dur : 84 ms QT Int : 380 ms P-R-T Axes : 50 20 13 degrees QTcB Int : 427 ms Normal sinus rhythm Normal ECG Confirmed by Inge Adler ([id number]) on 06/15/2025 7:22:44 PM Referred By: Electronically Signed By: Inge Adler Transcribed By: MUS Signed By Inge Adler MD 5 [id number] GLUCOSE POCT GLUCOMETERS Collected: 06/15/2025 6:27 A M Status: F Source: [facility] TYPE CODE TESTS RESULT OUT OF RANGE REFERENCE UNITS LAB GLUPOC Glucose Poc Glucometers 115 mg/dL Result Comment: Random Gluco se Reference Range is dependent on time and content of last meal. Glucose of more than 200 mg/dL in a nonstressed, ambulatory subject supports the diagnosis of Diabetes Mellitus. LAB COMM1 Commemt1 Glu2: Cleaned Meter Result Comment: PERFORMED BY : [address] [address] PATHOLOGIST FURNACE COMBINATION ANALYST CHANEL ROMERO M.D. Performed By: #### GLULS ### # Point of Care testing , GLUCOSE POCT GLUCOMETERS Collected: 06/15/2025 4:01 A M Status: F Source: [facility] TYPE CODE TESTS RESULT OUT OF RANGE REFERENCE UNITS LAB GLUPOC Glucose Poc Glucometers 135 mg/dL Result Comment: Random Gluco se Reference Range is dependent on time and content of last meal. Glucose of more than 200 mg/dL in a nonstressed, ambulatory subject supports the diagnosis of Diabetes Mellitus. LAB COMM1 Commemt1 Glu2: Cleaned Meter Result Comment: PERFORMED BY : [address] [address] PATHOLOGIST FURNACE COMBINATION ANALYST CHANEL ROMERO M.D. Performed By: #### GLULS ### # Point of Care testing , TROPONIN I HIGH SENSITIVITY Collected: 06/15/2025 12:02 AM Status: F Source: [facility] TYPE CODE TESTS RESULT OUT OF RANGE REFERENCE UNITS LAB HS TROP Troponin I High Sensitivity 3 Normal 0-15 Result Comment: The Troponin units of report have been changed to meet the Chest Pain Accreditation requirement, element EC5.M1l2. Troponin units are changed from pg/ml to ng/L. Also, the decimal is removed and results are in whole numbers. PERFORMED BY: [address] [address] PATHOLOGIST FURNACE COMBINATION ANALYST CHANEL ROMERO M.D. Performed By: #### HS TROP # ### [facility] [address] XR CHEST 2V* Observed: 06/14/2025 10:56 PM Status: COMPLETED Source: [facility] [place] [address] [id number] XRay Report Signed Patient: Noel Paul MR#: [id number] : 1990 Acct:[id number] Age/Sex: 34 / F ADM Date: 06/14/25 Loc: ER Room: Type: PRE ER Attending Dr: Copies to: DO ABRAHAN French, PROVIDER Ordering Provider: ONDINA GAUTHIER Date of Service: 06/14/25 XR/XR chest 2V*: Chest Pain XR chest 2V* 06/14/2025 10:51 PM SIGNS AND SYMPTOMS: Chest pain radiating into back PROTOCOL: Frontal and lateral graphs of the chest COMPARISON: None FINDINGS: The trachea is midline. There is cardiomegaly. Is no focal consolidation.. The bony thorax is intact. XR/XR chest 2V* IMPRESSION: There is cardiomegaly. No focal consolidation. Impression dictated by: Fermín Wilks M.D. 06/14/2025 10:57 PM Dictation Location: [place] [address] Transcribed By: [facility] 06/14/252256 Dictated By: Fermín Wilks II, MD 06/14/252255 Signed By: <Electronically signed by Fermín Wilks II, MD in OV> 06/14/252256 COMPLETE BLOOD COUNT AUTO DIFF Collected: 06/14/2025 10:17 PM Status: F Source: [facility] TYPE CODE TESTS RESULT OUT OF RANGE REFERENCE UNITS LAB WBC White Blood Count 12.4 High 3.8-11.6 [CFU]/mL LAB UNWBC Uncorrected WBC 12.4 High 3.8-11.6 10*3/uL LAB RBC Red Blood Count 4.98 Normal 3.60-5.00 10*6/u L LAB HGB Hemoglobin 12.4 Normal 11.8-15.4 g/dL LAB HCT Hematocrit 38.6 Normal 34.0-46.4 % LAB MCV Mean Corpuscular Volume 77.6 Low 80-100 fL LAB MCH Mean Corpuscular Hemoglobin 25.0 Normal 24.7-34.3 pg LAB MCHC Mean Corpuscular HGB Conc 32.2 Normal 32.0-35.0 g/dL LAB RDW Red Cell Distribution Width 16.5 High 11.9-15.3 % LAB PLT Platelet Count 361 Normal 150-450 10*3/uL LAB MPV Mean Platelet Volume 7.5 Normal 6.3-10.7 fL LAB MDW Monocyte Distribution Width 19.88 Normal 0.00-20.00 % LAB NE% Neutrophils % (Auto) 74.7 . % LAB LY% Lymphocytes % (Auto) 15.9 . % LAB MO% Monocytes % (Auto) 5.2 . % LAB EO% Eosinophils % (Auto) 2.8 . % LAB BA% Basophils % (Auto) 1.4 . % LAB NRBC% NRBC% 0.1 Normal 0-0.5 /100{WBC } LAB NE# Neutrophils # (Auto) 9.3 High 1.8-7.7 10*3/uL LAB LY# Lymphocytes # (Auto) 2.0 Normal 1.00-4.8 10*3/uL LAB MO# Monocytes # (Auto) 0.6 Normal 0.0-0.8 10*3/uL LAB EO# Eosinophils # (Auto) 0.3 Normal 0.0-0.45 10*3/uL LAB BA# Basophils # (Auto) 0.2 Normal 0.0-0.2 10*3/uL Result Comment: PERFORMED BY : [place] [address] PATHOLOGIST FURNACE COMBINATION ANALYST CHANEL ROMERO M.D. Performed By: #### CBC, BNP, HS TROP, BMP, CK, PT #### [address] BASIC METABOLIC PANEL Collected: 2024 10:17 PM Status: F Source: [facility] TYPE CODE TESTS RESULT OUT OF RANGE REFERENCE UNITS LAB GLU Glucose 143 High 70-100 mg/dL Result Comment: Random Gluco se Reference Range is dependent on time and content of last meal. Glucose of more than 200 mg/dL in a nonstressed, ambulatory subject supports the diagnosis of Diabetes Mellitus. ADA recommended reference range LAB BUN Blood Urea Nitrogen 16 Normal 7-25 mg/dL LAB CREATT Creatinine 0.99 Normal 0.60-1.20 mg/dL LAB GFReNR Estimated GFR >60.0 LAB NA Sodium 140 Normal 136-145 mmol/L LAB K Potassium 3.7 Normal 3.5-5.1 mmol/L LAB CL Chloride 105 Normal 98-107 mmol/L LAB CO2 Carbon Dioxide 27.2 Normal 21.0-31.0 mmol/L LAB GAP Anion Gap 11.5 Normal 6.0-15.0 LAB CA Calcium 9.4 Normal 8.6-10.3 mg/dL LAB CRCLPHA Creatinine Clr Calc Pharmacy 109.28 Result Comment: PERFORMED BY : [place] [address] PATHOLOGIST FURNACE COMBINATION ANALYST CHANEL ROMERO M.D. Performed By: #### CBC, BNP, HS TROP, BMP, CK, PT #### [place] [id number] [facility] B-TYPE NATRIURETIC PEPTIDE Collected: 06/14/2025 10:1 7 PM Status: F Source: [facility] TYPE CODE TESTS RESULT OUT OF RANGE REFERENCE UNITS LAB BNP B-Type Natriuretic Peptide 20.0 Normal 5-100 pg/mL Result Comment: PERFORMED BY : [place] [address] PATHOLOGIST FURNACE COMBINATION ANALYST CHANEL ROMERO M.D. Performed By: #### CBC, BNP, HS TROP, BMP, CK, PT #### [place] [id number] [facility] PROTHROMBIN TIME INR Collected: 025 10:17 PM Status: F Source: [facility] TYPE CODE TESTS RESULT OUT OF RANGE REFERENCE UNITS LAB R PT Prothrombin Time 11.5 Normal 9.0-12.9 s Result Comment: A hematocrit value greater than 55% may lead to inaccurate results in coagulation testing. Patients having hematocrit values >55% require a special collection tube for coagulation studies. Please contact the laboratory at [phone] for redraw instructions. LAB INR INR 1.0 Result Comment: INR Therapeu tic Range A) Pre- and Peroperative OAT started two weeks before surgery. NOT HIP SURGERY: 1.5 - 2.5 HIP SURGERY: 2 - 3 B) Primary and secondary prevention of venous THROMBOSIS: 2 - 3 C) Active venous thrombosis, pulmonary embolism and prevention of recurrent venous thrombosis: 2 - 3 D) Prevention of arterial thromboembolism including patients with mechanical heart valves: 3 - 4.5 PERFORMED BY: [place] [address] PATHOLOGIST FURNACE COMBINATION ANALYST CHANEL ROMERO M.D. Performed By: #### CBC, BNP, HS TROP, BMP, CK, PT #### [place] [id number] [facility] CREATINE KINASE Collected: 10:17 PM Status: F Source: [facility] TYPE CODE TESTS RESULT OUT OF RANGE REFERENCE UNITS LAB CK Creatine Kinase 50 Normal 30-223 U/L Performed By: #### CBC, BNP, HS TROP, BMP, CK, PT #### [place] [id number] [facility] TROPONIN I HIGH SENSITIVITY Collected: 06/14/2025 10:17 PM Status: F Source: [facility] TYPE CODE TESTS RESULT OUT OF RANGE REFERENCE UNITS LAB HS TROP Troponin I High Sensitivity 3 Normal 0-15 Result Comment: The Troponin units of report have been changed to meet the Chest Pain Accreditation requirement, element EC5.M1l2. Troponin units are changed from pg/ml to ng/L. Also, the decimal is removed and results are in whole numbers. PERFORMED BY: [place] [address] PATHOLOGIST FURNACE COMBINATION ANALYST CHANEL ROMERO M.D. Performed By: #### CBC, BNP, HS TROP, BMP, CK, PT #### [place] [id number] [facility] D-DIMER HIGH SENSITIVITY Collected: 10:17 PM Status: F Source: [facility] TYPE CODE TESTS RESULT OUT OF RANGE REFERENCE UNITS LAB DDIMER D-Dimer High Sensitivity <200 Normal 0-243 ng/mL Result Comment: The referenc e range for D-dimer is <243 ng/mL D-dimer units. D-dimer results must be used in conjunction with a clinical pretest probability (PTP) assessment model for deep vein thrombosis (DVT) and pulmonary embolism (PE). Results <230 ng/mL d-dimer units can be used as a negative predictor in patients with low or moderate probability for DVT/PE. Results above the exclusion threshold of 230 ng/ml D-dimer units for DVT/PE may indicate the need for further diagnostic testing. D-Dimer can be increased in hospitalized patients due to co-morbid conditions. A hematocrit value greater than 55% may lead to inaccurate results in coagulation testing. Patients having hematocrit values >55% require a special collection tube for coagulation studies. Please contact the laboratory at [phone] for redraw instructions. PERFORMED BY: [place] [address] PATHOLOGIST FURNACE COMBINATION ANALYST CHANEL ROMERO M.D. Performed By: #### DDIMER ## ## [address] ECG 12 LEAD ECG Observed: 06/14/2025 10:15 PM Status: COMPLETED Source: [facility] [place] [address] Electrocardiograph Report Signed Patient: Noel Paul MR#: [id number] : 1990 Acct:[id number] Age/Sex: 34 / F ADM Date: 06/15/25 Loc: Room: [address] [place] [address] Type: ADM INOo Attending Dr: Neo Mclaughlin MD Ordering Provider: Marek Dennis DO Date of Service: 06/14/25 ECG/ECG 12 lead ECG: Chest Pain Copies to: Test Reason : Blood Pressure : 146/87 mmHG Vent. Rate : 100 BPM Atrial Rate : 100 BPM P-R Int : 164 ms QRS Dur : 74 ms QT Int : 342 ms P-R-T Axes : 53 61 29 degrees QTcB Int : 441 ms Normal sinus rhythm Normal ECG No previous ECGs available Confirmed by MAREK DENNIS DO ([id number]) on 06/15/2025 3:00:29 AM Referred By: Electronically Signed By: MAREK DENNIS DO Transcribed By: MUS Signed By Marek Dennis DO 0300 PROGRESS Observed: 06/11/2025 10:08 AM Status: COMPLETED Source: [facility] HNO ID: [id number] Author: SEAN MATA DPM Service: ? Author Type: Physician Type: Progress Notes Filed: 06/11/2025 10:13 Note Text: PRIMARY SERVICE: [facility] 9:48 AM through 10:18 AM SUBJECTIVE: [...] tablet by mouth once daily. DEXCOM G7 WHEELABRATOR OPERATOR 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 DEXCOM G7 SENSOR eduin [...] the deltoid and spring ligaments as described. Furniture Repair Technician: PSCLewis Transcribe Date/Time: Jun 06 2025 11:37A Dictated by : RADHA TYSON MD This examination was interpreted and the report reviewed and electronically signed by: KATIANA FLORES MD on Jun 06 2025 2:13PM EST Results-Findings * * *Final Report* * * DATE OF EXAM: Jun 06 2025 8:43AM [facility] 0164 - MRI ANKLE WO IVCON [...] History MRI ANKLE WO IVCON RIGHT (Order #[id number]) on 06/06/2025 - Order Result History Report ASSESSMENT: Chronic right ankle pain due to ligamentous strain combined with flexor tendinitis and morbid obesity TREATMENT TODAY: Telephone visit Discussed results of clinical and MRI examination with the patient in detail along with treatment options. Had significant respectful conversation with patient regarding MRI results and her overall stature. Advised her BMI is 62. I do think the biggest roadblock for her to have minimal right foot and ankle pain is to see her physician to have discussion about ways to improve her BMI. Continue with the boot. SIGNATURE: Sean Mata DPM DATE of SERVICE: 06/11/2025 TIME of SERVICE: 10:08 AM MRI ANKLE WO IVCON RT Observed: 06/06/20 8:43 AM Status: F Source: [facility] * * *Final Report* * * DATE OF EXAM: Jun 06 2025 8:43AM [facility] 0164 - MRI ANKLE WO IVCON [...] collections. Localizer images: No significant additional findings. IMPRESSION: 1. Postoperative changes of posterior tibialis tendon reattachment with marked thickening of the distal tendon probably due to degeneration or postoperative scarring. No evidence of a complete tear. 2. Tenosynovitis at the master knot of Luis. 3. Chronic changes in the deltoid and spring ligaments as described. Furniture Repair Technician: HERNÁN Transcribe Date/Time: Jun 06 2025 11:37A Dictated by : RADHA TYSNO MD This examination was interpreted and the report reviewed and electronically signed by: KATIANA FLORES MD on Jun 06 2025 2:13PM EST [id number] Observed: 06/06/2025 8:00 AM Status: COMPLETED Source: [facility] HNO ID: [id number] Author: HONG ANDERSEN RT(Misha) Service: ? Author Type: Technologist Type: Progress Notes Filed: 06/06/2025 08:19 Note Text: Radiology Service Progress Note PATIENT NAME: Noel Paul DATE OF SERVICE: June 06, 2025 [...] status: NO. PATIENT RELEVANT IMPLANT DATA REVIEWED: Yes PATIENT PRESENTS WITH AN IMPLANTABLE OR ATTACHED PLATEMAKER: Yes [facility] RADIOLOGY DEPARTMENT: MR; Exam(s) Completed: Lower MSK: Ankle/Hind Foot, right . Aromatherapy Administered: No PERIPHERAL IV DATA: Not applicable SIGNED BY: RT Dami(R) June 06, 2025 8:17 AM CNPN Observed: 05/17/2025 12:00 AM Status: COMPLETED Source: [facility] Telephone (LOORRM) SUZINOEL ORTIZ ([id number]) 1990 F [place] Date Time Provider Department 05/17/25 SEAN MATA During your visit today, we recorded the following information about you: Alinsha Natalia, HAYES 05/17/2025 12:02 PM Signed Patients boot in no longer inflating or button is broken. Her mother will be coming in this way next week. She will bring the boot to change it out. Patient lives in [place]. Allergies As of Date: 05/17/2025 Noted Allergy Reaction SULFA (SULFONAMIDE ANTIBIOTICS) 03/29/2024 4 - Hives 2 - Rash Date Reviewed: 04/25/2025 Reviewed by: Racquel Noble OCCA - Fully Assessed Prescriptions as of 06/04/2025 - keTORolac (TORADOL) 10 mg tablet Take 1 tablet by mouth every 6 hours as needed. with food. - aspirin 325 mg tablet Take 1 tablet by mouth once daily. - DEXCOM G7 WHEELABRATOR OPERATOR 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 - DEXCOM G7 SENSOR [...] BEDTIME NEEDED Problem List As Of Date 05/17/2025 Noted Resolved Acid reflux [K21.9] 07/21/2024 Anxiety [F41.9] 07/21/2024 Diabetes mellitus without complication (HCC) [E*07/21/2024 Vitamin D deficiency [E55.9] 07/21/2024 Arthritis of right acromioclavicular joint [M19*12/28/2024 BMI 60.0-69.9, adult (HCC) [Z68.44] 12/28/2024 AQUILES (obstructive sleep apnea) [G47.33] 12/28/2024 Encounter Status:Closed by NATALIA BARRIOS on 06/04/25 PROGRESS Observed: 05/16/2025 3:23 PM Status: COMPLETED Source: [facility] HNO ID: [id number] Author: BEVERLY DOBSON Cast Tech Service: ? Author Type: Gem Setter Type: Progress Notes Filed: 05/16/2025 15:24 Note Text: Patient in today for scheduled appointment. Cast removed. Right leg cleansed with Wound wash, sea-clens and debrisoft. Examined by Dr. Mata. Patient to go int a boot she has at home. HAYES Johnson PROGRESS Observed: 05/16/2025 2:41 PM Status: COMPLETED Source: [facility] HNO ID: [id number] Author: SEAN MATA DPM Service: ? Author Type: Physician Type: Progress Notes Filed: 05/16/2025 14:44 Note Text: Medical intake sheet from May 16, 2025 , was updated by patient, reviewed, and was made part of the patient's chart. Sean Mata DPM PRIMARY SERVICE: [facility] SUBJECTIVE: Patient is seen today for follow-up status post a revisional modified Kidner procedure of her right foot on December 31, 2024 with continued pain of her rear foot and ankle after the injection in the sinus tarsi and BK fiberglass casting. Medical: PAST MEDICAL HISTORY PAST MEDICAL HISTORY [...] tablet by mouth once daily. DEXCOM G7 WHEELABRATOR OPERATOR 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 DEXCOM G7 SENSOR eduin [...] apparent acute distress. Patient presents with a BK fiberglass cast on the right lower extremity. Upon removal: NEUROVASCULAR: Patient is some mild generalized edema of the right rear foot and ankle DERMATOLOGIC: Unremarkable as related to the chief complaint right ORTHO/MUSCULOSKELETAL: There appears to be pain with palpation upon the medial lateral aspects of the subtalar joint with sinus tarsi pain ASSESSMENT: Intermittent right rear foot and ankle pain TREATMENT TODAY: Discussed results of clinical examination with the patient in detail along with treatment options. Strongly recommended a right ankle MRI to evaluate for what may be going on since extensive conservative treatments RICE formal physical therapy and immobilization does not prove satisfactory long-term basis. I will see the patient back after MRI is completed to discuss findings and further discuss treatment options SIGNATURE: Sean Mata DPM CNOV Observed: 05/16/2025 2:30 PM Status: COMPLETED Source: [facility] Office Visit (LOORRM) NOEL PAUL ([id number]) 1990 F [place] Date Time Provider Department 05/16/25 2:30 PM SEAN MATA During your visit today, we recorded the following information about you: Sean Mata DPM 05/16/2025 2:44 PM Signed Medical intake sheet from May 16, 2025 , was updated by patient, reviewed, and was made part of the patient's chart. Sean Mata DPM PRIMARY SERVICE: [facility] SUBJECTIVE: Patient is seen today for follow-up status post a revisional modified Kidner procedure of her right foot on December 31, 2024 with continued pain of her rear foot and ankle after the injection in the sinus tarsi and BK fiberglass casting. Medical: PAST MEDICAL HISTORY PAST MEDICAL HISTORY [...] tablet by mouth once daily. DEXCOM G7 WHEELABRATOR OPERATOR 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 DEXCOM G7 SENSOR eduin [...] apparent acute distress. Patient presents with a BK fiberglass cast on the right lower extremity. Upon removal: NEUROVASCULAR: Patient is some mild generalized edema of the right rear foot and ankle DERMATOLOGIC: Unremarkable as related to the chief complaint right ORTHO/MUSCULOSKELETAL: There appears to be pain with palpation upon the medial lateral aspects of the subtalar joint with sinus tarsi pain ASSESSMENT: Intermittent right rear foot and ankle pain TREATMENT TODAY: Discussed results of clinical examination with the patient in detail along with treatment options. Strongly recommended a right ankle MRI to evaluate for what may be going on since extensive conservative treatments RICE formal physical therapy and immobilization does not prove satisfactory long-term basis. I will see the patient back after MRI is completed to discuss findings and further discuss treatment options SIGNATURE: Sean Mata DPM Allergies As of Date: 05/16/2025 Noted Allergy Reaction SULFA (SULFONAMIDE ANTIBIOTICS) 03/29/2024 4 - Hives 2 - Rash Date Reviewed: 04/25/2025 Reviewed by: Racquel Noble OCCA - Fully Assessed Primary Visit Diagnosis:S/P foot surgery, right [Z98.890] Other Visit Diagnosis:Chronic pain of right ankle [M25.571, G89.29] Order(s):MRI ANKLE WO IVCON RIGHT [[id number]] Order #: [id number] FUTURE Prescriptions as of 05/16/2025 - keTORolac (TORADOL) 10 mg tablet Take 1 tablet by mouth every 6 hours as needed. with food. - aspirin 325 mg tablet Take 1 tablet by mouth once daily. - DEXCOM G7 WHEELABRATOR OPERATOR 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 - DEXCOM G7 SENSOR [...] BEDTIME NEEDED Problem List As Of Date 05/16/2025 Noted Resolved Acid reflux [K21.9] 07/21/2024 Anxiety [F41.9] 07/21/2024 Diabetes mellitus without complication (HCC) [E*07/21/2024 Vitamin D deficiency [E55.9] 07/21/2024 Arthritis of right acromioclavicular joint [M19*12/28/2024 BMI 60.0-69.9, adult (HCC) [Z68.44] 12/28/2024 AQUILES (obstructive sleep apnea) [G47.33] 12/28/2024 Encounter Status:Closed by SEAN MATA on 05/16/25 CNOV Observed: 05/16/2025 2:00 PM Status: COMPLETED Source: [facility] Office Visit (LOORRM) NOEL PAUL ([id number]) 1990 F [place] Date Time Provider Department 05/16/25 2:00 PM CAST TECH COLEEN GALLAGHER During your visit today, we recorded the following information about you: Beverly Dobson Cast Tech 05/16/2025 3:24 PM Signed Patient in today for scheduled appointment. Cast removed. Right leg cleansed with Wound wash, sea-clens and debrisoft. Examined by Dr. Mata. Patient to go int a boot she has at home. Beverly Dobson, [place] Allergies As of Date: 05/16/2025 Noted Allergy Reaction SULFA (SULFONAMIDE ANTIBIOTICS) 03/29/2024 4 - Hives 2 - Rash Date Reviewed: 04/25/2025 Reviewed by: Racquel Noble OCCA - Fully Assessed Primary Visit Diagnosis:S/P foot surgery, right [Z98.890] Prescriptions as of 05/16/2025 - keTORolac (TORADOL) 10 mg tablet Take 1 tablet by mouth every 6 hours as needed. with food. - aspirin 325 mg tablet Take 1 tablet by mouth once daily. - DEXCOM G7 WHEELABRATOR OPERATOR 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 - DEXCOM G7 SENSOR [...] BEDTIME NEEDED Problem List As Of Date 05/16/2025 Noted Resolved Acid reflux [K21.9] 07/21/2024 Anxiety [F41.9] 07/21/2024 Diabetes mellitus without complication (HCC) [E*07/21/2024 Vitamin D deficiency [E55.9] 07/21/2024 Arthritis of right acromioclavicular joint [M19*12/28/2024 BMI 60.0-69.9, adult (HCC) [Z68.44] 12/28/2024 AQUILES (obstructive sleep apnea) [G47.33] 12/28/2024 Encounter Status:Closed by BEVERLY DOBSON on 05/16/25 PROGRESS Observed: 05/06/2025 4:02 PM Status: COMPLETED Source: [facility] HNO ID: [id number] Author: BEVERLY DOBSON Cast Tech Service: ? Author Type: Gem Setter Type: Progress Notes Filed: 05/06/2025 16:02 Note Text: Ms. Paul has been informed that the supervising physician today is Dr. Meek. I am carrying out the treatment plan of Dr. Mata. Patient came in today c/o of loose cast heel rubbing. Cast was removed and skin inspected. Skin appeared normal. Cast was reapplied. Patient instructed follow-up with doctor during next scheduled appointment/prn. HAYES Johnson CNOV Observed: 05/06/2025 4:00 PM Status: COMPLETED Source: [facility] Office Visit (LOORRM) NOEL PAUL ([id number]) 1990 F [place] Date Time Provider Department 05/06/25 4:00 PM CAST TECH [employer] During your visit today, we recorded the following information about you: Beverly Dobson Cast Tech 05/06/2025 4:02 PM Signed Ms. Paul has been informed that the supervising physician today is Dr. Meek. I am carrying out the treatment plan of Dr. Mata. Patient came in today c/o of loose cast heel rubbing. Cast was removed and skin inspected. Skin appeared normal. Cast was reapplied. Patient instructed follow-up with doctor during next scheduled appointment/prn. Beverly Dobson, [place] Allergies As of Date: 05/06/2025 Noted Allergy Reaction SULFA (SULFONAMIDE ANTIBIOTICS) 03/29/2024 4 - Hives 2 - Rash Date Reviewed: 04/25/2025 Reviewed by: Racquel Noble OCCA - Fully Assessed Primary Visit Diagnosis:S/P foot surgery, right [Z98.890] Prescriptions as of 05/06/2025 - keTORolac (TORADOL) 10 mg tablet Take 1 tablet by mouth every 6 hours as needed. with food. - aspirin 325 mg tablet Take 1 tablet by mouth once daily. - DEXCOM G7 WHEELABRATOR OPERATOR 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 - DEXCOM G7 SENSOR [...] BEDTIME NEEDED Problem List As Of Date 05/06/2025 Noted Resolved Acid reflux [K21.9] 07/21/2024 Anxiety [F41.9] 07/21/2024 Diabetes mellitus without complication (HCC) [E*07/21/2024 Vitamin D deficiency [E55.9] 07/21/2024 Arthritis of right acromioclavicular joint [M19*12/28/2024 BMI 60.0-69.9, adult (HCC) [Z68.44] 12/28/2024 AQUILES (obstructive sleep apnea) [G47.33] 12/28/2024 Encounter Status:Closed by BEVERLY DOBSON on 05/06/25 PROGRESS Observed: 04/25/2025 3:13 PM Status: COMPLETED Source: [facility] HNO ID: [id number] Author: BEVERLY DOBSON Cast Tech Service: ? Author Type: Gem Setter Type: Progress Notes Filed: 04/25/2025 15:14 Note Text: Applied A Short Leg Weightbearing Cast to the right leg. Instructions on cast care given. A medium Cast Shoe was dispensed. Will f/u as scheduled/prn. HAYES Johnson CNOV Observed: 04/25/2025 3:00 PM Status: COMPLETED Source: [facility] Office Visit (LOORR) NOEL PAUL ([id number]) 1990 F [place] Date Time Provider Department 04/25/25 3:00 PM CAST TECH [employer] During your visit today, we recorded the following information about you: Beverly Dobson Cast Tech 04/25/2025 3:14 PM Signed Applied A Short Leg Weightbearing Cast to the right leg. Instructions on cast care given. A medium Cast Shoe was dispensed. Will f/u as scheduled/prn. Beverly Dobson, HAYES Allergies As of Date: 04/25/2025 Noted Allergy Reaction SULFA (SULFONAMIDE ANTIBIOTICS) 03/29/2024 4 - Hives 2 - Rash Date Reviewed: 04/25/2025 Reviewed by: Racquel Noble OCCA - Fully Assessed Primary Visit Diagnosis:S/P foot surgery, right [Z98.890] Prescriptions as of 04/25/2025 - keTORolac (TORADOL) 10 mg tablet Take 1 tablet by mouth every 6 hours as needed. with food. - aspirin 325 mg tablet Take 1 tablet by mouth once daily. - DEXCOM G7 WHEELABRATOR OPERATOR 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 - DEXCOM G7 SENSOR [...] BEDTIME NEEDED Problem List As Of Date 04/25/2025 Noted Resolved Acid reflux [K21.9] 07/21/2024 Anxiety [F41.9] 07/21/2024 Diabetes mellitus without complication (HCC) [E*07/21/2024 Vitamin D deficiency [E55.9] 07/21/2024 Arthritis of right acromioclavicular joint [M19*12/28/2024 BMI 60.0-69.9, adult (HCC) [Z68.44] 12/28/2024 AQUILES (obstructive sleep apnea) [G47.33] 12/28/2024 Encounter Status:Closed by BEVERLY DOBSON on 04/25/25 PROGRESS Observed: 04/25/2025 2:09 PM Status: COMPLETED Source: [facility] HNO ID: [id number] Author: SEAN MATA DPM Service: ? Author Type: Physician Type: Progress Notes Filed: 04/25/2025 14:38 Note Text: PRIMARY SERVICE: [facility] SUBJECTIVE: Patient is seen today for follow-up status post a revisional modified Kidner procedure of her right foot on December 31, 2024 with continued pain of her rear foot and ankle. Medical: PAST MEDICAL HISTORY Diagnosis Date - Diabetes mellitus (HCC) - GERD (gastroesophageal reflux disease) - Obesity - AQUILES (obstructive sleep apnea) - PONV (postoperative nausea and vomiting) ALLERGIES: ALLERGIES Allergen Reactions - Sulfa (Sulfonamide * Hives, Rash MEDICATIONS: Current Outpatient Medications Medication Sig - keTORolac (TORADOL) 10 mg tablet Take 1 tablet by mouth every 6 hours as needed. with food. - aspirin 325 mg tablet Take 1 tablet by mouth once daily. - DEXCOM G7 WHEELABRATOR OPERATOR 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 - DEXCOM G7 SENSOR [...] Surgical: PAST SURGICAL HISTORY Procedure Laterality Date - PAST SURGICAL HISTORY OF Bilateral foot x2 - PAST SURGICAL HISTORY OF Right shoulder - REMOVAL GALLBLADDER PHYSICAL EXAM: The patient is alert and oriented x 3 and in no apparent acute distress. Patient presents with a short leg Aircast CAM Walker boot on the right lower extremity. Upon removal: NEUROVASCULAR: Patient is some mild generalized edema of the right rear foot and ankle DERMATOLOGIC: Unremarkable as related to the chief complaint right ORTHO/MUSCULOSKELETAL: There appears to be pain with palpation upon the medial lateral aspects of the subtalar joint with sinus tarsi pain ASSESSMENT: Sinus tarsitis right foot TREATMENT TODAY: Discussed results of clinical examination with the patient in detail along with treatment options. Recommend a sinus tarsi diagnostic and therapeutic injection if no improvement after 5 minutes of the recommended BKA fiberglass walking cast. Additional Injections: R subtalar joint for 04/25/2025 [...] these instructions. Informed Consent Consent Obtained: Verbal [place] Protocol A moment to CARE was completed. [...] the bedside nurse for hospitalized patients) applicable. SIGNATURE: Sean Mata DPM DATE of SERVICE: 04/25/2025 TIME of SERVICE: 2:09 PM CNOV Observed: 04/25/2025 2:00 PM Status: COMPLETED Source: [facility] Office Visit (LOORRM) NOEL PAUL ([id number]) 1990 F [facility] Date Time Provider Department 5/29/25 2:00 PM SEAN MATA LOORRMadi During your visit today, we recorded the following information about you: Sean Mata DPM 04/25/2025 2:38 PM Signed PRIMARY SERVICE: [facility] SUBJECTIVE: Patient is seen today for follow-up status post a revisional modified Kidner procedure of her right foot on December 31, 2024 with continued pain of her rear foot and ankle. Medical: PAST MEDICAL HISTORY Diagnosis Date - Diabetes mellitus (HCC) - GERD (gastroesophageal reflux disease) - Obesity - AQUILES (obstructive sleep apnea) - PONV (postoperative nausea and vomiting) ALLERGIES: ALLERGIES Allergen Reactions - Sulfa (Sulfonamide * Hives, Rash MEDICATIONS: Current Outpatient Medications Medication Sig - keTORolac (TORADOL) 10 mg tablet Take 1 tablet by mouth every 6 hours as needed. with food. - aspirin 325 mg tablet Take 1 tablet by mouth once daily. - DEXCOM G7 WHEELABRATOR OPERATOR 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 - DEXCOM G7 SENSOR [...] Surgical: PAST SURGICAL HISTORY Procedure Laterality Date - PAST SURGICAL HISTORY OF Bilateral foot x2 - PAST SURGICAL HISTORY OF Right shoulder - REMOVAL GALLBLADDER PHYSICAL EXAM: The patient is alert and oriented x 3 and in no apparent acute distress. Patient presents with a short leg Aircast CAM Walker boot on the right lower extremity. Upon removal: NEUROVASCULAR: Patient is some mild generalized edema of the right rear foot and ankle DERMATOLOGIC: Unremarkable as related to the chief complaint right ORTHO/MUSCULOSKELETAL: There appears to be pain with palpation upon the medial lateral aspects of the subtalar joint with sinus tarsi pain ASSESSMENT: Sinus tarsitis right foot TREATMENT TODAY: Discussed results of clinical examination with the patient in detail along with treatment options. Recommend a sinus tarsi diagnostic and therapeutic injection if no improvement after 5 minutes of the recommended BKA fiberglass walking cast. Additional Injections: R subtalar joint for 04/25/2025 [...] these instructions. Informed Consent Consent Obtained: Verbal [place] Protocol A moment to CARE was completed. [...] the bedside nurse for hospitalized patients) applicable. SIGNATURE: Sean Mata DPM DATE of SERVICE: 04/25/2025 TIME of SERVICE: 2:09 PM Allergies As of Date: 04/25/2025 Noted Allergy Reaction SULFA (SULFONAMIDE ANTIBIOTICS) 03/29/2024 4 - Hives 2 - Rash Date Reviewed: 04/25/2025 Reviewed by: Racquel Noble OCCA - Fully Assessed Reason for Visit: Post Op [174] Primary Visit Diagnosis:Sinus tarsitis, right [M25.571] Order(s):Additional Injections: R subtalar joint [IUF270] Order #: [id number] CAST DAVID LEG, SHORT(WALKING) [[id number]] Order #: [id number] [] BUPivacaine (PF) 0.5 % (5 mg/mL) 1 mL injectionDisp: Rfl: [] triamcinolone acetonide 10 mg injection (KeNALog 10)Disp: Rfl: Prescriptions as of 04/25/2025 - keTORolac (TORADOL) 10 mg tablet Take 1 tablet by mouth every 6 hours as needed. with food. - aspirin 325 mg tablet Take 1 tablet by mouth once daily. - DEXCOM G7 WHEELABRATOR OPERATOR 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 - DEXCOM G7 SENSOR [...] BEDTIME NEEDED Problem List As Of Date 04/25/2025 Noted Resolved Acid reflux [K21.9] 07/21/2024 Anxiety [F41.9] 07/21/2024 Diabetes mellitus without complication (HCC) [E*07/21/2024 Vitamin D deficiency [E55.9] 07/21/2024 Arthritis of right acromioclavicular joint [M19*12/28/2024 BMI 60.0-69.9, adult (HCC) [Z68.44] 12/28/2024 AQUILES (obstructive sleep apnea) [G47.33] 12/28/2024 Prescriptions ordered this encounter Disp Refills Start End BUPIVACAINE (PF) 0.5 % (5 MG/ML) INJ* 04/25/2025 04/25/2025 Route: Inj-ORTHO TRIAMCINOLONE ACETONIDE 10 MG/ML PATRICIA* 04/25/2025 04/25/2025 Route: Inj-ORTHO Encounter Status:Closed by SEAN MATA on 04/25/25 PROGRESS Observed: 04/16/2025 2:42 PM Status: COMPLETED [id number] Author: SEAN MATA DPM Service: ? Author Type: Physician Type: Progress Notes Filed: 04/16/2025 14:48 Note Text: PRIMARY SERVICE: [facility] Virtual visit with Zoom: 2:15 to 2:30 PM SUBJECTIVE: Patient is seen today for a virtual visit 15 weeks status post a revisional modified Guerra Kidner procedure of her right foot with right foot and ankle pain. She was in a cast initially after surgery and was essentially pain-free. She was then placed in an Aircast CAM Walker boot and developed some pain and now she is an ASO ankle brace. She has been going to physical therapy and is starting water therapy today. She states she has pain at the surgical site on top of the ankle which radiates into the big toe causing her to limp. She has difficulty putting full weight on the foot. Medical: PAST MEDICAL HISTORY Diagnosis Date Diabetes [...] tablet by mouth once daily. DEXCOM G7 WHEELABRATOR OPERATOR 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 DEXCOM G7 SENSOR eduin [...] Patient is 5 foot 2 and 339 pounds. NEUROVASCULAR: Deferred since virtual DERMATOLOGIC: Deferred since virtual ORTHO/MUSCULOSKELETAL: Deferred since virtual ASSESSMENT: Indeterminate right foot and ankle pain postoperatively appropriate for scheduling an office visit scheduled TREATMENT TODAY: Virtual visit regarding right foot and ankle Discussed results of clinical examination with the patient in detail along with treatment options. Recommended patient discontinue the ASO ankle brace and go back to her boot until we can have her come in next week for evaluation. Explained I really cannot life insurance sales agent what is going on without examining her clinically to determine the best plan of care. Continue icing and oral ibuprofen in the meantime along with the return to her Aircast cam walker boot. SIGNATURE: Sean Mata DPM DATE of SERVICE: 04/16/2025 TIME of SERVICE: 2:42 PM CNCO Observed: 03/28/2025 12:00 AM Status: COMPLETED Source: [facility] Letter Text PROGRESS Observed: 03/14/2025 4:37 PM Status: COMPLETED Source: [facility] HNO ID: [id number] Author: NATALIA BARRIOS CT Service: ? Author Type: Clinical Gem Setter Type: Progress Notes Filed: 03/14/2025 16:37 Note Text: Dispensed size Medium ASO to right foot. CNOV Observed: 03/14/2025 3:45 PM Status: COMPLETED Source: [facility] Office Visit (LOORRM) NOEL PAUL ([id number]) 1990 F [place] Date Time Provider Department 03/14/25 3:45 PM SEAN MATA During your visit today, we recorded the following information about you: Sean Mata DPM 03/14/2025 4:01 PM Signed PRIMARY SERVICE: [facility] SUBJECTIVE: Patient is seen today for a scheduled postop visit with her son present 10 plus weeks status post a revision of modified Kidner procedure of her right foot without complaints. She has gone to physical therapy as directed. Medical: PAST MEDICAL HISTORY PAST MEDICAL HISTORY [...] for up to 10 days. DEXCOM G7 WHEELABRATOR OPERATOR 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 DEXCOM G7 SENSOR eduin [...] in no apparent acute distress. Patient presents wearing an Aircast CAM Walker boot on on the right lower extremity weightbearing. Upon removal: NEUROVASCULAR: Patient has only mild edema and erythema along the incision as expected DERMATOLOGIC: The incision is well healing. ORTHO/MUSCULOSKELETAL: With loading the fifth ray the foot is nice and rectus with minimal residual deformity. She has some discomfort along the lateral column of the right foot. ASSESSMENT: Satisfactory postop progress right foot status post 10 weeks Treatment today: Scheduled postop visit right foot Discussed results of clinical examination with the patient in detail May discontinue the Aircast CAM Walker boot and continue physical therapy. Okay for discharge. Fitted for ASO ankle brace today SIGNATURE: SHITAL Ward Melody, CT 03/14/2025 4:37 PM Signed Dispensed size Medium ASO to right foot. Referring Provider: SELF [200] Allergies As of Date: 03/14/2025 Noted Allergy Reaction SULFA (SULFONAMIDE ANTIBIOTICS) 03/29/2024 4 - Hives 2 - Rash Date Reviewed: 03/14/2025 Reviewed by: Natalia Barrios CT - Fully Assessed Reason for Visit: Post Op [174] Pain [78] Primary Visit Diagnosis:S/P foot surgery, right [Z98.890] Order(s):XR FOOT GENERAL 3V AP/LAT/OBL RIGHT [[id number]] Order #: [id number] FUTURE XR FOOT GENERAL 3V AP/LAT/OBL RIGHT [[id number]] Order #: [id number] FUTURE Prescriptions as of 03/14/2025 - keTORolac (TORADOL) 10 mg tablet Take 1 tablet by mouth every 6 hours as needed. with food. - aspirin 325 mg tablet Take 1 tablet by mouth once daily. - DEXCOM G7 WHEELABRATOR OPERATOR 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 - DEXCOM G7 SENSOR [...] BEDTIME NEEDED Problem List As Of Date 03/14/2025 Noted Resolved Acid reflux [K21.9] 07/21/2024 Anxiety [F41.9] 07/21/2024 Diabetes mellitus without complication (HCC) [E*07/21/2024 Vitamin D deficiency [E55.9] 07/21/2024 Arthritis of right acromioclavicular joint [M19*12/28/2024 BMI 60.0-69.9, adult (HCC) [Z68.44] 12/28/2024 AQUILES (obstructive sleep apnea) [G47.33] 12/28/2024 Encounter Status:Closed by SEAN MATA on 03/14/25 PROGRESS Observed: 03/14/2025 3:41 PM Status: COMPLETED Source: [facility] HNO ID: [id number] Author: SEAN MATA DPM Service: ? Author Type: Physician Type: Progress Notes Filed: 03/14/2025 16:01 Note Text: PRIMARY SERVICE: [facility] SUBJECTIVE: Patient is seen today for a scheduled postop visit with her son present 10 plus weeks status post a revision of modified Kidner procedure of her right foot without complaints. She has gone to physical therapy as directed. Medical: PAST MEDICAL HISTORY PAST MEDICAL HISTORY [...] for up to 10 days. DEXCOM G7 WHEELABRATOR OPERATOR 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 DEXCOM G7 SENSOR eduin [...] in no apparent acute distress. Patient presents wearing an Aircast CAM Walker boot on on the right lower extremity weightbearing. Upon removal: NEUROVASCULAR: Patient has only mild edema and erythema along the incision as expected DERMATOLOGIC: The incision is well healing. ORTHO/MUSCULOSKELETAL: With loading the fifth ray the foot is nice and rectus with minimal residual deformity. She has some discomfort along the lateral column of the right foot. ASSESSMENT: Satisfactory postop progress right foot status post 10 weeks Treatment today: Scheduled postop visit right foot Discussed results of clinical examination with the patient in detail May discontinue the Aircast CAM Walker boot and continue physical therapy. Okay for discharge. Fitted for ASO ankle brace today SIGNATURE: Sean Mata DPM PROGRESS Observed: 03/14/2025 3:32 PM Status: COMPLETED Source: [facility] ID: [id number] Author: JOYA DUBOIS RT(R) Service: ? Author Type: Technologist Type: Progress Notes Filed: 03/14/2025 15:33 Note Text: Radiology Service Progress Note PATIENT NAME: Noel Paul DATE OF SERVICE: March 14, 2025 TIME: 3:32 PM PATIENT IDENTITY VERIFICATION COMPLETED USING TWO (2) IDENTIFIERS: Name and Date of confirmed by patient verbally. FALL SCREENING: Has the patient had 2 falls in the last year or 1 fall with injury or currently using an Ambulatory Assistive Device (Walker, Cane, Wheelchair, Crutches, etc.)? No PATIENT GENDER DATA: Assigned female at . status: : No status: NO. PATIENT RELEVANT IMPLANT DATA REVIEWED: Yes PATIENT PRESENTS WITH AN IMPLANTABLE OR ATTACHED PLATEMAKER: No RADIOLOGY DEPARTMENT: General X-ray: Exam(s) Completed: Lower Extremity X-Ray(s): Foot, Right and Wt. Bearing PERIPHERAL IV DATA: Not applicable SIGNED BY: Joya Dubois, RT(R) March 14, 2025 3:32 PM XR FOOT 3V AP/LAT/OBL RT Observed: 03/14 3:31 PM Status: F Source: [facility] * * *Final Report* * * DATE OF EXAM: Mar 14 2025 3:31PM LZX [id number] - XR FOOT 3V AP/LAT/OBL RT / PROCEDURE REASON: S/P foot surgery, right * * * * Physician Interpretation * * * * EXAMINATION / TECHNIQUE: XR FOOT 3V AP/LAT/OBL RT PATIENT/TECHNOLOGIST PROVIDED HISTORY: right foot surgery follow up CLINICAL INFORMATION ( PROVIDED BY ORDERING CLINICIAN) : S/P foot surgery, right COMPARISON: 02/13/2025 RESULT: Status post os navicular resection. Mild medial midfoot/hindfoot soft tissue swelling, similar to prior. No acute fracture or other significant interval change. IMPRESSION: No significant interval change. Furniture Repair Technician: PSCB Transcribe Date/Time: Mar 14 2025 4:01P Dictated by : NEO PERLA MD This examination was interpreted and the report reviewed and electronically signed by: NEO PERLA MD on Mar 14 2025 4:02PM EST [id number] CNPN Observed: 02/20/2025 12:00 AM Status: COMPLETED Source: [facility] Telephone (ORQ) NOEL PAUL ([id number]) 1990 F [place] Date Time Provider Department 02/20/25 SEAN MATA During your visit today, we recorded the following information about you: Marva Bhardwaj 02/20/2025 4:08 PM Signed Bonilla from [facility] PT Dept is calling Sean Mata DPM today to request weightbearing guide lines for patient PT CB [phone] ext [phone] FAX [phone] Patient has been identified by name and birthdate. Duration of symptoms: N/A Person calling: caregiver: Call patient at: [phone] (home) [phone] (cell) Was an appointment scheduled: No Closing statement: Results or non-symptom based questions: Thank you for calling [facility], your call will be returned within the next business day. Marva Kang Pss Chris Bhatt OCCA 02/20/2025 4:21 PM Signed Called and informed staff she may being partial weight bearing. Robyn Castaneda, ABA 02/21/2025 8:34 AM Addendum Bonilla calls back [...] by mouth once daily. - DEXCOM G7 WHEELABRATOR OPERATOR 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 - DEXCOM G7 SENSOR [...] Encounter Status:Closed by CHRIS BHATT on 02/20/25 PROGRESS Observed: 02/13/2025 10:14 AM Status: COMPLETED Source: [facility] HNO ID: [id number] Author: BEVERLY DOBSON Cast Tech Service: ? Author Type: Gem Setter Type: Progress Notes Filed: 02/13/2025 10:15 Note Text: Patient in today for scheduled appointment. Cast removed. Right leg cleansed with Cavilon. Examined by Dr. Mata. Fitted with a medium Short Pneumatic Walker for the right leg. Instructions on application, adjustments and care given. Will f/u as scheduled/prn. HAYES Johnson CNOV Observed: 02/13/2025 9:45 AM Status: COMPLETED Source: [facility] Office Visit (LOORRM) NOEL PAUL ([id number]) 1990 F [facility] Date Time Provider Department 02/13/25 9:45 AM SEAN MATA LOORRM During your visit today, we recorded the following information about you: Sean Mata, SHITAL 02/13/2025 10:05 AM Signed PRIMARY SERVICE: [facility] SUBJECTIVE: Patient is seen today [...] up to 10 days. - DEXCOM G7 WHEELABRATOR OPERATOR 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 - DEXCOM G7 SENSOR [...] [Z98.890] Order(s):XR FOOT GENERAL 3V AP/LAT/OBL RIGHT [[id number]] Order #: [id number] FUTURE CONSULT TO PHYSICAL THERAPY [9032] Order #: [id number]: 1 FUTURE Prescriptions as of 02/13/2025 - keTORolac (TORADOL) 10 mg tablet Take 1 tablet by mouth every 6 hours as needed. with food. - aspirin 325 mg tablet Take 1 tablet by mouth once daily. - DEXCOM G7 WHEELABRATOR OPERATOR 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 - DEXCOM G7 SENSOR [...] 12/28/2024 Encounter Status:Closed by SEAN MATA on 02/13/25 PROGRESS Observed: 02/13/2025 9:44 AM Status: COMPLETED Source: [facility] ID: [id number] Author: SEAN MATA DPM Service: ? Author Type: Physician Type: Progress Notes Filed: 02/13/2025 10:05 Note Text: PRIMARY SERVICE: [facility] SUBJECTIVE: Patient is seen today [...] up to 10 days. - DEXCOM G7 WHEELABRATOR OPERATOR 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 - DEXCOM G7 SENSOR [...] of the patient's chart. Sean Mata DPM CNOV Observed: 02/13/2025 9:30 AM Status: COMPLETED Source: [facility] Office Visit (LOORRM) SUZINOEL ORTIZ ([id number]) 1990 F [facility] Date Time Provider Department 02/13/25 9:30 AM CAST TECH [employer] During your visit today, we recorded the following information about you: Beverly Dobson Cast Tech 02/13/2025 10:15 AM Signed Patient in today for scheduled appointment. Cast removed. Right leg cleansed with Cavilon. Examined by Dr. Mata. Fitted with a medium Short Pneumatic Walker for the right leg. Instructions on application, adjustments and care given. Will f/u as scheduled/prn. Beverly Dobson, CT Allergies As of Date: 02/13/2025 Noted Allergy [...] by mouth once daily. - DEXCOM G7 WHEELABRATOR OPERATOR 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 - DEXCOM G7 SENSOR [...] Encounter Status:Closed by BEVERLY DOBSON on 02/13/25 XR FOOT 3V AP/LAT/OBL RT Observed: 02/13 9:25 AM Status: F Source: [facility] * * *Final Report* * * DATE [...] interval change. IMPRESSION: Postoperative findings, as described. Furniture Repair Technician: PSCB Transcribe Date/Time: Feb 13 2025 9:26A Dictated by : MONALISA HOLGUIN MD This examination was interpreted and the report reviewed and electronically signed by: ANGELA VEGAS MD on Feb 13 2025 10:19AM EST [id number] PROGRESS Observed: 02/13/2025 9:23 AM Status: COMPLETED Source: [facility] HNO ID: [id number] Author: SHIMROCK, CECILIO, RT(R) Service: ? Author Type: Technologist Type: [...] PATIENT PRESENTS WITH AN IMPLANTABLE OR ATTACHED PLATEMAKER: No RADIOLOGY DEPARTMENT: General X-ray: Exam(s) Completed: Lower Extremity X-Ray(s): Foot, Right PERIPHERAL IV DATA: Not applicable SIGNED BY: RT Rickie(R) February 13, 2025 9:23 AM PROGRESS Observed: 01/23/2025 11:51 AM Status: COMPLETED Source: [facility] HNO ID: [id number] Author: BEVERLY DOBSON Cast Tech Service: ? Author Type: Gem Setter Type: Progress Notes Filed: 01/23/2025 11:52 Note Text: Patient in today for scheduled appointment. Cast removed. Right leg cleansed with sea-clens. Examined by Dr. Mata. Applied A Short Leg Nonweightbearing Cast to the right leg. Instructions on cast care given. Will f/u as scheduled/prn. HAYES Johnson CNOV Observed: 01/23/2025 11:30 AM Status: COMPLETED Source: [facility] Office Visit (LOORRM) NOEL PAUL ([id number]) 1990 F [place] Date Time Provider Department 01/23/25 11:30 AM SEAN MATA LOORRM During your visit today, we recorded the following information about you: Sean Mata DPM 01/23/2025 11:47 AM Signed PRIMARY SERVICE: [facility] Podiatry SUBJECTIVE: Patient is seen today [...] for up to 10 days. DEXCOM G7 WHEELABRATOR OPERATOR 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 DEXCOM G7 SENSOR eduin [...] [Q74.2] Order(s):XR FOOT GENERAL 3V AP/LAT/OBL RIGHT [[id number]] Order #: [id number] FUTURE PARKING FOR HANDICAPPED [[id number]] Order #: [id number] Prescriptions as of 01/23/2025 - keTORolac (TORADOL) 10 mg tablet Take 1 tablet by mouth every 6 hours as needed. with food. - aspirin 325 mg tablet Take 1 tablet by mouth once daily. - DEXCOM G7 WHEELABRATOR OPERATOR 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 - DEXCOM G7 SENSOR [...] 12/28/2024 Encounter Status:Closed by SEAN MATA on 01/23/25 SHYANNE Observed: 01/23/2025 11:30 AM Status: COMPLETED Source: [facility] Office Visit (LOORR) NOEL PAUL ([id number]) 1990 F [place] Date Time Provider Department 01/23/25 11:30 AM JAIRO BLANKENSHIP During your visit today, [...] by mouth once daily. - DEXCOM G7 WHEELABRATOR OPERATOR 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 - DEXCOM G7 SENSOR [...] Encounter Status:Closed by BEVERLY DOBSON on 01/23/25 PROGRESS Observed: 01/23/2025 10:56 AM Status: [facility]PLETED [facility] [id number] Author: SEAN MATA DPM Service: ? Author Type: Physician Type: Progress Notes Filed: 01/23/2025 11:47 Note Text: PRIMARY SERVICE: [facility] Podiatry SUBJECTIVE: Patient is seen today [...] for up to 10 days. DEXCOM G7 WHEELABRATOR OPERATOR 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 DEXCOM G7 SENSOR eduin [...] to physical therapy. SIGNATURE: Sean Mata DPM PROGRESS Observed: 01/09/2025 11:18 AM Status: COMPLETED Source: [facility] HNO ID: [id number] Author: SHAYLEE CONCEPCION MA Service: ? Author Type: Bottle Washing Machine Operator Type: Progress Notes Filed: 01/09/2025 11:22 Note [...] follow up as scheduled or as needed. PROGRESS Observed: 01/09/2025 10:52 AM Status: COMPLETED Source: [facility] HNO ID: [id number] Author: SEAN MATA DPM Service: ? Author Type: Physician Type: Progress Notes Filed: 01/09/2025 10:55 Note Text: PRIMARY SERVICE: [facility] Podiatry SUBJECTIVE: Patient is seen today [...] for up to 10 days. DEXCOM G7 WHEELABRATOR OPERATOR 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 DEXCOM G7 SENSOR eduin [...] SERVICE: 01/09/2025 TIME of SERVICE: 10:52 AM CNOV Observed: 01/09/2025 10:15 AM Status: COMPLETED Source: [facility] Office Visit (LOORRM) NOEL PAUL ([id number]) 1990 F [place] Date Time Provider Department 01/09/25 10:15 AM SEAN MATA During your visit today, we recorded the following information about you: Sean Mata DPM 01/09/2025 10:55 AM Signed PRIMARY SERVICE: [facility] Podiatry SUBJECTIVE: Patient is seen today [...] for up to 10 days. DEXCOM G7 WHEELABRATOR OPERATOR 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 DEXCOM G7 SENSOR eduin [...] [Q74.2] Order(s):XR FOOT GENERAL 3V AP/LAT/OBL RIGHT [[id number]] Order #: [id number] FUTURE Prescriptions as of 01/09/2025 - keTORolac (TORADOL) 10 mg tablet Take 1 tablet by mouth every 6 hours as needed. with food. - aspirin 325 mg tablet Take 1 tablet by mouth once daily. - promethazine (PHENERGAN) 12.5 mg tablet Take 1 tablet by mouth every 8 hours as needed for up to 10 days. - DEXCOM G7 WHEELABRATOR OPERATOR 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 - DEXCOM G7 SENSOR [...] 12/28/2024 Encounter Status:Closed by SEAN MATA on 01/09/25 SHYANNE Observed: 01/09/2025 9:30 AM Status: COMPLETED Source: [facility] Office Visit (LOORRM) NOEL PAUL ([id number]) 1990 F [place] Date Time Provider Department 01/09/25 9:30 AM CAST TECH COLEEN BLANKENSHIP During your [...] up to 10 days. - DEXCOM G7 WHEELABRATOR OPERATOR 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 - DEXCOM G7 SENSOR [...] Encounter Status:Closed by SHAYLEE CONCEPCION on 01/09/25 CNCO Observed: 01/09/2025 12:00 AM Status: COMPLETED Source: [facility] Letter Text CNPN Observed: 01/02/2025 12:00 AM Status: COMPLETED Source: [facility] Telephone (LOORR) NOEL PAUL ([id number]) 1990 F [place] Date Time Provider Department 01/02/25 SEAN MATA During your visit today, we recorded the following information about you: Sean Mata DPM 01/02/2025 12:40 PM Signed Called patient at [phone] to return call regarding pain management. I [...] by: Loren Martinez RN - Fully Assessed Prescriptions as of 01/02/2025 - keTORolac (TORADOL) 10 mg tablet Take 1 tablet by mouth every 6 hours as needed. with food. - aspirin 325 mg tablet Take 1 tablet by mouth once daily. - promethazine (PHENERGAN) 12.5 mg tablet Take 1 tablet by mouth every 8 hours as needed for up to 10 days. - oxyCODONE-acetaminophen (PERCOCET) 5-325 mg tablet Take 1 tablet by mouth every 6 hours as needed for pain for up to 5 days. - DEXCOM G7 WHEELABRATOR OPERATOR 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 - DEXCOM G7 SENSOR [...] Encounter Status:Closed by SEAN MATA on 01/02/25 ANES POSTPROC EVAL Observed: 12/31/2024 11:19 AM Status: COMPLETED Source: [facility] HNO ID: [id number] Author: PETER BROWN MD Service: Anesthesiology Author Type: Anesthesiologist Type: Anesthesia Postprocedure Evaluation Filed: 12/31/2024 11:19 Note Text: POST ANESTHESIA EVALUATION NOTE : 1990 Procedure Summary Date: 12/31/24 Room / Location: [address] Anesthesia Start: 737 Anesthesia Stop: 100 [...] December 31, 2024 TIME: 11:19 AM CSN: [id number] ANES PROCEDURE NOTE Observed: 12/31/2024 9:57 AM Status: COMPLETED Source: [facility] HNO ID: [id number] Author: ESTELLA GIBBONS AA Service: Anesthesiology Author Type: Night Order Selector Type: Anesthesia Procedure Notes Filed: 12/31/2024 09:57 [...] December 31, 2024 TIME: 9:57 AM CSN: [id number] TISS PATH BX REPORT Collected: 12/31/19 9:51 AM Status: F Source: [facility] Order Comment: Specimen Type : TISSUE SPECIMEN Ordering Facility: [facility] Address: [address] [place] [address] TYPE CODE TESTS RESULT OUT OF RANGE REFERENCE UNITS PATHOLOGY [id number] CASE REPORT Result Comment: Surgical Pat hology Report Case: [id number] Authorizing Provider: Sean Mata, Collected: 12/31/2024 09:51 AM DPM Ordering Location: Ambulatory Surgery Received: 12/31/2024 01:28 PM Pathologist: Shemar Pablo MD Specimen: Bone and Soft Tissue, right foot PATHOLOGY [id number] FINAL DIAGNOSIS Result Comment: A. Bone, rig ht foot, excision: - Osteocartilaginous tissue with degenerative changes and granulation tissue. OLOGY [id number] GROSS DESCRIPTION Result Comment: A. Bone and Soft Tissue Received in formalin, labeled right foot are multiple irregular fragments of mccarthy, hard bone measuring 3 x 3 x 0.9 cm in aggregate. Sectioning reveals mccarthy, hard bone. No gross necrotic areas identified. Fisheries Management Biologist sections are submitted in A1 following formic decalcification. 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] PATHOLOGY [facility] FINAL PERFORMING LAB Result Comment: Diagnostic i nterpretation performed at: [facility], [address] [facility], [facility] [address] CLIA# [id number] Hand I Cutter: Fermín Ojeda MD Performed By: #### [id number] # ### [facility] CLIA [id number] [address] [place] [address] [facility] CLIA [id number] [address] BRIEF OP NOT Observed: 12/31/2024 9:39 AM Status: COMPLETED Source: [facility] HNO ID: [id number] Author: SEAN MATA DPM Service: Podiatry Author Type: Physician Type: Brief Op Note Filed: 12/31/2024 09:42 Note Text: BRIEF OPERATIVE / PROCEDURE NOTE LOG ID: [id number] SURGERY/PROCEDURE DATE: 12/31/2024 INCISION/PROCEDURE START TIME: 8:16 AM INCISION CLOSE/PROCEDURE END TIME: SURGEON(S)/PROCEDURALIST(S) AND AMUSEMENT RIDE OPERATOR(S): Surgeons and Role: * Sean Mata DPM [...] PRE-OP/PRE-PROCEDURE DIAGNOSIS: Painful accessory navicular right foot POST-OP/POST-PROCEDURE DIAGNOSIS: Same as Preop Patient was accompanied to the next level of care by a licensed practitioner from the surgical team pending completion of this brief op note (or operative note) SIGNATURE: Sean Mata DPM PATIENT NAME: Noel Paul DATE: December 31, 2024 TIME: 9:39 AM ANES PROCEDURE NOTE Observed: 12/31/2024 8:18 AM Status: COMPLETED Source: [facility] HNO ID: [id number] Author: ESTELLA GIBBONS AA Service: Anesthesiology Author Type: Night Order Selector Type: Anesthesia Procedure Notes Filed: 12/31/2024 08:20 [...] December 31, 2024 TIME: 8:18 AM CSN: [id number] ANES PRE-OP Observed: 12/31/2024 7:31 AM Status: COMPLETED Source: [facility] ID: [id number] Author: PETER BROWN MD Service: Anesthesiology Author Type: Anesthesiologist Type: Anesthesia Preprocedure Evaluation Filed: 12/31/2024 07:32 Note Text: ANESTHESIOLOGY DAY OF SURGERY NOTE : 1990 Procedure Information Date/Time: 12/31/24729 Procedure: RECONSTRUCTION POSTERIOR TIBIAL TENDON W/EXCISION OF ACCESSORY TARSAL NAVICULAR BONE (Right: Foot) Location: [place] [address] / [facility] Surgeons: Sean Mata DPM Estimated body mass index is 62.06 kg/m? as calculated from the following: Height as of 12/28/24: 157.5 cm (5' 2 ). Weight as of 12/28/24: 153.9 kg (339 lb 4.6 oz). Most recent hematocrit and potassium results: No results found for this basename: HCT,HEMATOCRIT,K,POTASSIUM Relevant Problems ANESTHESIA (+) AQUILES (obstructive sleep [...] of 12/31/2024 Medication Sig - DEXCOM G7 WHEELABRATOR OPERATOR 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 - DEXCOM G7 SENSOR [...] December 31, 2024 TIME: 7:31 AM CSN: [id number] CNPN Observed: 12/31/2024 12:00 AM Status: COMPLETED Source: [facility] Telephone (ORQ) MELCHORNOEL Piedra ([id number]) 1990 F [place] Date Time Provider Department 12/31/24 SEAN MATA During your visit today, we [...] calling: self Call patient at: at home [phone] (home) [phone] (cell) Was an appointment scheduled: No Closing statement: Results or non-symptom based questions: Thank you for calling [facility], your call will be returned within the next business day. Karissa Torrez MA 12/31/2024 3:26 PM Signed Message has been sent directly to Dr Mata's phone. Sean Mata DPM 01/01/2025 3:53 PM Signed Called patient at her Lonnie's cell number at [phone] to check on postop progress. Received voicemail. [...] needed for up to 10 days. - oxyCODONE-acetaminophen (PERCOCET) 5-325 mg tablet Take 1 tablet by mouth every 6 hours as needed for pain for up to 5 days. - DEXCOM G7 WHEELABRATOR OPERATOR 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 - DEXCOM G7 SENSOR [...] Encounter Status:Closed by SEAN MATA on 01/01/25 OPERATIVE NO Observed: 12/31/2024 12:00 AM Status: COMPLETED Source: [facility] HNO ID: [id number] Author: SEAN MATA DPM Service: Podiatry Author Type: Physician Type: Operative Report Filed: 01/24/2025 08:37 Note Text: [facility] - Operative Report [address] [address] [place] NOEL PAUL : 1990 AGE: 34. SEX: F PATIENT TYPE: OP HOSP SVC: ORTS LOCATION: [id number] ATTENDING PHYSICIAN: Sean Mata DPM CSN NUMBER: [id number] DATE OF SURGERY/PROCEDURE: 12/31/2024 INCISION/PROCEDURE START TIME: 8:16 a.m. INCISION CLOSE/PROCEDURE END TIME: 9:43 a.m. The procedure was performed in conjunction with the resident who was present in the operating room today under my direct supervision from skin to skin. PREOPERATIVE DIAGNOSIS: Painful remaining accessory navicular, right foot. POSTOPERATIVE DIAGNOSIS: Painful remaining accessory navicular, right foot. SURGEON: Sean Mata DPM AMUSEMENT RIDE OPERATOR: Maurice Bernard D.P.M. SURGERY/PROCEDURE: Revisional modified Kidner procedure, right foot, CPT 93442. ANESTHESIA: General with a local field block consisting of 20 mL of 2% lidocaine plain. LOCATION: [facility]. HEMOSTASIS: Right pneumatic thigh tourniquet at 350 [...] with a SutureTak, we then used some cxpf-gta-ufdt sutures distally to the distal tag with #0 Ethibond. We then used free needles to take some of the suture from the tendon anchor and to tie into the dorsal periosteum from the tendon tying through the tendon and the dorsal periosteum for further augmentation of the reattachment. We then used 2-0 Vicryl to reattach the abductor muscle fascia that was opened to ensure nice overall stability of the medial rear foot and midfoot. The subcutaneous tissue was reapproximated utilizing 3-0 Vicryl in a continuous running fashion. The skin was then reapproximated utilizing 4-0 Monocryl in a subcuticular fashion with overlaid simple sutures of 4-0 Monocryl for additional wound support. 10 mL of 0.5% Marcaine plain was injected within and proximal to the operative site for prolonged postop anesthesia. A sterile compressive dressing was then applied to the patient's right foot and ankle consisting of Betadine-soaked Adaptic, 4 x 4s, and Kerlix. The right pneumatic thigh tourniquet was fully deflated. Immediate cap refill was noted to digits 1 through 5 of the right foot. A well-padded BK fiberglass posterior splint was then applied to the patient's right lower extremity with all bony prominences well padded. The patient was then transported from the OR to the recovery room with vital signs stable and vascular status intact to all digits of the right foot. The patient was given written as well as verbal postoperative instructions upon discharge including prescriptions for Percocet and Phenergan for postoperative pain and nausea. The patient is to take an adult aspirin per day for DVT prophylaxis. The patient was discharged to home in apparent satisfactory condition without complaints, ambulating, nonweightbearing on the right foot, wearing a posterior splint, using a knee rollator in care of her . She is scheduled for her first postop evaluation in our office on November 08, 2024. The patient has a BMI of 62.06. She is 5 feet 2 inches and 339 pounds. Sean Mata DPM [facility]:[id number] /[id number] HISTORY PHYSICAL Observed: 12/28/2024 10:10 AM Status: COMPLETED Source: [facility] ID: [id number] Author: ARY ROCHA APRN.IRENE Service: ? Author Type: Nurse Practitioner Type: H&P Filed: 12/28/2024 10:56 Note Text: [facility] HISTORY AND PHYSICAL EXAMINATION SERVICE DATE: 12/28/2024 SERVICE TIME: 10:08 AM PRIMARY CARE PHYSICIAN: Monique Emmanuel CNP, CHAMPAGNE MAKER REASON FOR VISIT: Noel Paul is a [...] STOP-Bang Score: STOP-Bang Score: 0 (Awaiting CPAP) CFV0CG7-LSMe Score: Age: <65 Sex: female [id number] Score: ARISCAT Score: Age: <=50 Preoperative SpO2: [...] chart review and guidance on proceeding at [facility]. Per Dr Goetz, patient may proceed as scheduled at [facility] CONSULTS: Anesthesia Consult chart review The Following [...] AT BEDTIME NEEDED Taking Yes DEXCOM G7 WHEELABRATOR OPERATOR 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 DEXCOM G7 SENSOR eduin [...] fevers. Neuro: No history of TIA's, stroke, DIETETICS TEACHER tumor, impaired sensorium, hemiplegia, paraplegia or quadraplegia. No neurological symptoms or problems. Respiratory: No history of current cough or dyspnea, or pneumonia in the past 6 weeks. No history of respiratory/pulmonary symptoms or problems. Cardiovascular: No history of HTN requiring medication, no history of angina, CHF, [place], cardiac surgery or stents. Denies rest pain, [...] 4.6 oz (153.9kg) SpO2 98% BMI 62.04 kg/(m2). General: Alert and oriented, No acute distress Skin: Normal color, no rash, no lesions. HEENT: EOM, pupils equal, round and reactive. Cardiovascular: Normal S1 AND S2, no rubs, murmurs or gallops. No [...] Noel Paul DATE: 12/28/2024 TIME: 10:21 AM PROGRESS Observed: 12/12/2024 10:39 AM Status: COMPLETED Source: [facility] HNO ID: [id number] Author: SEAN MATA DPM Service: ? Author Type: Physician Type: Progress Notes Filed: 12/12/2024 10:46 Note Text: [facility] Department of Orthopedics [facility] Orthopedic Surgery Name: Noel Paul Date [...] Current Outpatient Medications Medication Sig DEXCOM G7 WHEELABRATOR OPERATOR 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 DEXCOM G7 SENSOR eduin [...] We will complete scheduling. Sean Mata DPM CNOV Observed: 12/12/2024 10:00 AM Status: COMPLETED Source: [facility] Office Visit (LOORRM) NOEL PAUL ([id number]) 1990 F [place] Date Time Provider Department 12/12/24 10:00 AM SEAN MATA During your visit today, we recorded the following information about you: Sean Mata DPM 12/12/2024 10:46 AM Signed [facility] Department of Orthopedics [facility] Orthopedic Surgery Name: Noel Paul Date [...] Current Outpatient Medications Medication Sig DEXCOM G7 WHEELABRATOR OPERATOR 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 DEXCOM G7 SENSOR eduin [...] Prescriptions as of 12/12/2024 - DEXCOM G7 WHEELABRATOR OPERATOR 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 - DEXCOM G7 SENSOR [...] Of Date: 12/12/2024 (None) Encounter Status:Closed by SEAN MATA on 12/12/24 PROGRESS Observed: 12/12/2024 9:29 AM Status: COMPLETED Source: [facility] HNO ID: [id number] Author: JAMAL GARCIA RT(R) Service: ? Author [...] PATIENT PRESENTS WITH AN IMPLANTABLE OR ATTACHED PLATEMAKER: No RADIOLOGY DEPARTMENT: General X-ray: Exam(s) Completed: Lower Extremity X-Ray(s): Foot, Right PERIPHERAL IV DATA: Not applicable SIGNED BY: RT Manju(R) December 12, 2024 9:29 AM XR FOOT 3V AP/LAT/OBL RT Observed: 12/12 9:28 AM Status: F Source: [facility] * * *Final Report* * * DATE [...] unremarkable. IMPRESSION: No fracture or joint dislocation. Furniture Repair Technician[facility] Transcribe Date/Time: Dec 12 2024 9:37A Dictated by : LUX WILLETT MD This examination was interpreted and the report reviewed and electronically signed by: LUC AVILES MD on Dec 12 2024 11:47AM EST [id number] [id number] Observed: 12/12/2024 12:00 AM Status: COMPLETED Source: [facility] Telephone (LOORRM) NOEL PAUL ([id number]) 1990 F [place] Date Time Provider Department 12/12/24 SEAN MATA During your visit today, we recorded the following information about you: Cathy Santana 12/12/2024 1:14 PM Signed ----- Message from Sean Mata DPM sent at 12/12/2024 10:45 AM EST ----- Regarding: Surgery scheduling Diagnosis: 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 - DEXCOM G7 SENSOR [...] Encounter Status:Closed by CATHY SANTANA on 12/12/24 36 Observed: 12/04/2024 3:06 PM Status: COMPLETED Source: [facility] Spoke with patient and let h er know that per Dr. Her she can bring the disc in and he will take a look at the images and let her know. 36 Observed: 12/03/2024 2:40 PM Status: COMPLETED Source: [facility] Patient would like to know i f she can get in earlier than her rescheduled appt since she had to cancel. Patient would like to drop off her MRI results sooner than her appt as well. Please advise at [phone] TELEPHONE Observed: 12/03/2024 12:00 AM Status: COMPLETED Source: [facility] [id number] Noel Paul 89 F Date Provider Department Center 12/03/2024 [id number] HURTADO MP [facility] No family history on file Reason for Visit and Comments: Appointment [375] 36 Observed: 11/29/2024 1:50 PM Status: COMPLETED Source: [facility] LVM with patient that she wi ll need to bring disc in. Scheduled patient for Tuesday12/03/24 at 10:30 am 36 Observed: 11/29/2024 10:30 AM Status: COMPLETED Source: [facility] Patient would like to know i f she needs to make an appointment to bring in her MRI results or if you have received them? Sales And Service Engineer does not see them in the chart. Please advise at [phone] OFFICE VISIT Observed: 11/26/2024 1:30 PM Status: COMPLETED Source: [facility] [id number] Noel Paul 7[birth year] F Date Provider Department Center 11/26/2024 KAT VIGIL MP ORTHO MPORTHO No family history on file Level of Service:05596 [place] OFFICE/OUTPATIENT NEW LOW MDM 30 MINUTES (GC) Reason for Visit and Comments: Pain [136] PROGRESS Observed: 11/26/2024 1:30 PM Status: COMPLETED Source: [facility] Orthopedic Surgery Subjective Pain of the Right [...] today as a referral from her previous computer network engineer for assistance with continued pain over the [...] answered to her satisfaction. Sukhdev Heredia MD 11/26/2024y using the attestations below, the signing clinician [...] from me. Kat Her MD Orthopedic Surgery, [place] [facility] 11/26/2024 36 Observed: 11/23/2024 2:55 PM Status: COMPLETED Source: [facility] LVM to confirm appt SURGICAL PATHOLOGY REPORT Observed: 07/2024 8:32 AM Status: F Source: [facility] [place] [address]- Surgical Pathology Report Collected Date/Time: 09/05/2024 08:32 [...] Microscopic examination performed unless gross only specified. Performed By: #### [id number] # ### [facility] [address] [place] [address] SURGICAL PATHOLOGY REPORT Observed: 07/2024 8:32 AM Status: C [facility] [address] [facility] [place] [address]- Surgical Pathology Report Collected Date/Time: 09/05/2024 08:32 EDT Pathologist: Joon LONG PhD, Benito Piedra Received Date/Time: 09/06/2024 07:35 EDT Valentino ISAACS, Pato Hernandez DPM Surgical Pathology Report - 09/12/2024 15:36 EDT [...] IN DIAGNOSIS. Addition of clinical information only. Performed By: #### [id number] # ### Sujit [facility] [address] [place] [address] ALLERGIES DATE TYPE / CODE NAME / CODE REACTION SEVERITY SOURCE 2025 Drug Allergy/87944138 2(SNOMED CT) Egg Derived/M55862505 8(RXNORM) Hives Unknown [facility] 03/29/2024 Drug Class/318739926( SNOMED CT) SULFA (SULFONAMIDE ANTIBIOTICS) HIVES Low [facility] 03/29/2024 Drug Class/341531487( SNOMED CT) SULFA (SULFONAMIDE ANTIBIOTICS) Hives~Rash [facility] /203226294(SNO MED CT) sulfa drugs Sujit [facility] ENCOUNTERS ADMIT/DISCHARGE ACCOUNT NUMBER ADMITTING ENCOUNTER CLASS LOCATION SOURCE 06/15/2025/06/16/20 [id number] Neo [facility] [id number]: [address] [facility] 06/11/2025/06/11/20 [id number] Ambulatory [facility] HospitalBuil ding:ARJUN [facility] 06/06/2025 [id number] Ambulatory [facility] [facility] 05/16/2025/05/16/20 [id number] Ambulatory [facility] HospitalBuil ding:ARJUN [facility] 05/16/2025/05/16/20 [id number] Ambulatory [facility] HospitalBuil ding:ARJUN [facility] 05/06/2025/05/06/20 [id number] Ambulatory [facility] Hospital[facility]:ARJUN [facility] 04/25/2025/04/25/20 [id number] [facility] HospitalBuil ding:ARJUN [facility] 04/25/2025/04/25/20 [id number] [facility] HospitalBuil ding:ARJUN [facility] 04/16/2025/04/16/20 25 [id number] [facility] HospitalBuil ding:ARJUN [facility] 03/21/2025/03/21/20 25 [id number] Ambulatory Building:NOM S CI POD [facility] EPIC 03/14/2025/03/14/20 25 [id number] Amb[facility] HospitalBuil ding:ARJUN [facility] 03/14/2025 [id number] Amb[facility] HospitalBuil ding:SAIDA [facility] 03/07/2025/03/07/20 25 [id number] Ambulatory Building:NOM S CI POD [facility] EPIC 02/13/2025/02/14/20 25 [id number] Ambulatory [facility] HospitalBuil ding:ARJUN [facility] 02/13/2025/02/14/20 25 [id number] Amb[facility] HospitalBuil ding:ARJUN [facility] 02/13/2025/02/14/20 25 [id number] Ambulatory [facility] HospitalBuil ding:SAIDA [facility] 01/23/2025/01/23/20 25 [id number] Ambulatory [facility] HospitalBuil ding:ARJUN [facility] 01/23/2025/01/23/20 25 [id number] Ambulatory [facility] HospitalBuil ding:ARJUN [facility] 01/23/2025 [id number] [facility] HospitalBuil ding:SAIDA [facility] 01/09/2025/01/09/20 25 [id number] Amb[facility] HospitalBuil ding[facility]ARJUN [facility] 01/09/2025/01/09/20 25 [id number] [facility] HospitalBuil ding:ARJUN [facility] 12/31/2024/12/31/19 25 [id number] SEAN MATA Ambulatory [facility] HospitalBuil ding:H670Syl m: [id number]: L010-01 [facility] 12/28/2024/12/28/19 25 [id number] Ambulatory [facility] HospitalBuil ding:MONIQUE [facility] 12/12/2024/12/12/19 [id number] [facility] 12/12/2024/12/12/19 [id number] [facility] Hospital[facility]:SAIDA [facility] 11/26/2024/11/26/20 24 [id number] Ambulatory [facility]in [address] [facility] 11/26/2024 [id number] Ambulatory Buildin 0 [facility] 11/26/2024/11/26/20 24 [id number] Ambulatory [facility] [id number] [facility] 10/24/2024/10/24/20 24 [id number] Ambulatory Building:NOM S SC POD [facility] EPIC 10/04/2024/10/04/20 24 [id number] Ambulatory Building:NOM S CI POD [facility] EPIC 09/20/2024/09/20/20 24 [id number] Ambulatory Building:NOM S CI POD [facility] EPIC 09/13/2024/09/13/20 24 [id number] Ambulatory Building:NOM S CI POD [facility] EPIC 09/13/2024/09/13/20 24 [id number] Ambulatory Building:NOM S CI POD [facility] EPIC 09/05/2024/09/05/20 24 [id number] Pato Avelar Ambulatory FTBuilding :FT [facility] 08/30/2024/08/30/20 24 [id number] Ambulatory Building:NOM S CI POD [facility] EPIC PAYERS ENCOUNTER GUARANTOR PAYER SUBSCRIBER SOURCE 06/15/2025 Noel [address] [place] [address]Oib: (HP) Primary Insurance:Elda ALEXANDER/BSPolicy Number: [id number] arnie Date:2025-06-14 Lonnie BusbyB: [id number] [place] [address]Lfg: (HP) [facility] 06/15/2025 Secondary Insurance:Self PayPolicy Number: Effective Date:2025-06-14 [facility] Primary Insurance:BLUE CARD PPO OOSPolicy Number: [id number] arnie Date:5414-96-33Pmz n Name:Rogers BUSBYLewis: [id number] [place] [address] [facility] 06/06/2025 Primary Insurance:BLUE CARD PPO OOSPolicy Number: [id number] arnie Date:1267-21-84Meh n Name:Rogers BUSBYLewis: [id number] [address] 05/16/2025 Primary Insurance:BLUE CARD PPO OOSPolicy Number: [id number] arnie Date:8020-58-63Ivw n Name:Rogers Piedra SUZIANGELHELIO: [id number] [address] 05/16/2025 Primary Insurance:BLUE CARD PPO OOSPolicy Number: [id number] arnie Date:5930-28-44Ybv n Name:Rogers BECKER: [id number] [address] 05/06/2025 Primary Insurance:BLUE CARD PPO OOSPolicy Number: [id number] arnie Date:8272-51-45Otf n Name:Rogers BUSBYLewis: [id number] [address] 04/25/2025 Primary Insurance:BLUE CARD PPO OOSPolicy Number: [id number] arnie Date:7947-16-72Xgr n Name:Rogers Piedra SUZIANGELHELIO: [id number] [address] 04/25/2025 Primary Insurance:BLUE CARD PPO OOSPolicy Number: [id number] arnie Date:3619-62-49Tmz n Name:Rogers BUSBYB: [id number] [place] [address] [facility] 04/16/2025 Primary Insurance:BLUE CARD PPO OOSPolicy Number: [id number] arnie Date:2583-51-33Ppy n Name:Rogers BUSBYB: [id number] [place] [address] [facility] 03/21/2025 NOEL Tadeo BUSBYB: [place], [place] [address]Inj: (HP) Primary Insurance:BCBSPoli cy Number: [id number] arnie Date:2020-11-28 LONNIE PAULB: [id number] [address] 03/14/2025 Primary Insurance:BLUE CARD PPO OOSPolicy Number: [id number] arnie Date:1103-64-44Hyl n Name:Rogers BUSBYB: [id number] [place] [address] [facility] 03/14/2025 Primary Insurance:BLUE CARD PPO OOSPolicy Number: [id number] arnie Date:0442-31-57Pyj n Name:Rogers BUSBYB: [id number] [place] [address] [facility] 03/07/2025 NOEL Tadeo BUSBYB: [place], [place] [address]Wye: (HP) Primary Insurance:BCBSPoli cy Number: [id number] arnie Date:2020-11-28 LONNIE Piedra SUZIANGLEB: [id number] [place], [place] [address] [place] [address] 02/13/2025 Primary Insurance:BLUE CARD PPO OOSPolicy Number: [id number] arnie Date:1229-69-07Cau n Name:Rogers Piedra SUZIANGELHELIO: [id number] [place] [address] [facility] 02/13/2025 Primary Insurance:BLUE CARD PPO OOSPolicy Number: [id number] arnie Date:5610-98-29Wrv n Name:Rogers BECKER: [id number] [place] [address] [facility] 02/13/2025 Primary Insurance:BLUE CARD PPO OOSPolicy Number: [id number] arnie Date:5873-85-63Rnw n Name:Rogers BECKER: [id number] [place] [address] [facility] 01/23/2025 Primary Insurance:BLUE CARD PPO OOSPolicy Number: [id number] arnie Date:5275-60-32Ovz n Name:Rogers PAULHELIO: [id number] [address] 01/23/2025 Primary Insurance:BLUE CARD PPO OOSPolicy Number: [id number] arnie Date:0022-63-42Mcs n Name:Rogers BUSBYLewis: [id number] [address] 01/23/2025 Primary Insurance:BLUE CARD PPO OOSPolicy Number: [id number] arnie Date:0977-20-79Lny n Name:Rogers BUSBYLewis: [id number] [place] [address] [facility] 01/09/2025 Primary Insurance:BLUE CARD PPO OOSPolicy Number: [id number] arnie Date:1056-22-98Fjf n Name:Rogers Piedra SUZIPATIENCELewis: [id number] [place] [address] [facility] 01/09/2025 Primary Insurance:BLUE CARD PPO OOSPolicy Number: [id number] arnie Date:6646-59-46Ylw n Name:Rogers Piedra SUZIANGELHELIO: [id number] [place] [address] [facility] 12/31/2024 Primary Insurance:BLUE CARD PPO OOSPolicy Number: [id number] arnie Date:1205-90-26Goh n Name:Rogers BECKER: [id number] [place] [address] [facility] 12/28/2024 Primary Insurance:BLUE CARD PPO OOSPolicy Number: [id number] arnie Date:5976-99-89Rfw n Name:Rogers BUSBYB: [id number] [place] [address] [facility] 12/12/2024 Primary Insurance:BLUE ACCESS PPOPolicy Number: [id number] arnie Date:6278-56-41Chf n Name:Rogers BUSBYB: [id number] [address] 12/12/2024 Primary Insurance:BLUE ACCESS PPOPolicy Number: [id number] arnie Date:5270-44-77Hwu n Name:Rogers BECKER: [id number] [address] 11/26/2024 Primary Insurance:BCBS OOSPolicy Number: [id number] arnie Date:2020-11-28 LONNIE BUSBYB: [id number] [place] [id number] [facility] 11/26/2024 Primary Insurance:BCBS OOSPolicy Number: [id number] arnie Date:2020-11-28 LONNIE BUSBYB: [id number] [place] [id number] [facility] 11/26/2024 Primary Insurance:BCBS OOSPolicy Number: [id number] arnie Date:2020-11-28 LONNIE BUSBYB: [id number] [place] [id number] [facility] 10/24/2024 NOEL PAULDOB: [place], [place] [address]Nfx: (HP) Primary Insurance:BCBSPoli cy Number: [id number] arnie Date:2020-11-28 LONNIE Piedra USZIANGELDOB: [id number] [place] [address] [facility] EPIC 10/04/2024 NOEL ARCHERIESDOB: [place], [place] [address]Clj: (HP) Primary Insurance:BCBSPoli cy Number: [id number] arnie Date:2020-11-28 LONNIE L MELCHORDOB: [id number] [place] [address] [facility] EPIC 09/20/2024 NOEL PAULDOB: [place] [id number]: (HP) Primary Insurance:BCBSPoli cy Number: [id number] arnie Date:2020-11-28 LONNIE L MELCHORDOB: [id number] [place] [address] [facility] 09/13/2024 NOEL PAULDOB: [place], [place] [address]Uiy: (HP) Primary Insurance:BCBSPoli cy Number: [id number] arnie Date:2020-11-28 LONNIE L MELCHORDOB: [id number] [place] [address] [facility] EPIC 09/13/2024 NOEL ARCHERIESDOB: [place], [place] [address]Aqu: (HP) Primary Insurance:BCBSPoli cy Number: [id number] arnie Date:2020-11-28 LONNIE PAULDOB: [id number] [place] [address] [facility] EPIC 09/05/2024 NOEL BUSBYB: [facility] () Primary Insurance:AnthMitchelo zully Number: [id number] arnie Date:7035-62-52[address], [place] [address]YO: NOEL YI [facility] 08/30/2024 NOEL BUSBYB: [place], [place] [address]Msc: () Primary Insurance:BCBSJem chavira Number: [id number] arnie Date:2020-11-28 LONNIE BECKER: [id number] [place] [address] [place] [address] [facility] EPIC
--- OUTSIDE RECORDS SUMMARY | 2025-08-16 10:13 | XMS_ITS ---
Author Organization [facility] [place] Address [address] [place] [address] Care Team Providers Care Workforce Development Assistant Name Role Phone Monique Razo Primary Care Provider REASON FOR VISIT repeat labs Encounters Encounter Location Date Provider Diagnosis [facility] [address] [place] [address] 08/16/2025 Monique Razo Low iron E61.1 Assessments Encounter Date Diagnosis (ICD Code) Assessment Notes Treatment Notes Treatment Clinical Notes Section Notes 08/16/2025 Low iron (ICD-10 - E61.1) Plan Of Treatment Pending Test Test Name Order Date CBC W/AUTO DIFF 08/16/2025 IRON 08/16/2025 Next Appt Details Provider Name:Monique rutledge, 10/22/2025 04:15:00 PM, [address] [place], [address], Progress Notes * Kyung ROCHE LDOB:1990 (35 yo F)Acc No.[id number]:08/16/2025 Patient: Kevin PAZdominique Piedra :1990 A ge:35 Y S ex:Female Address:[address] [place] [address], [id number] Subjective: * Chief Complaints: * R epeat labs * Medical History: * Surgical History: * Hospitalization/Major Diagno stic Procedure: * Medications: Objective: * Vitals: * Physical Examination: Assessment: * Assessment: 1. L ow iron - E61.1 (Primary) Plan: * Treatment: * Procedure Codes: * true * Date: Generated for Jonnie leonard/Estella/Steven on: 0 08/27/2025 03:14 AM EDT
--- OUTSIDE RECORDS SUMMARY | 2025-08-19 05:00 | XMS_ITS ---
Author Organization [facility] Address [address] [address], [place] [address] Care Team Providers Care Line Erector Name Role Phone Monique Razo CNP Primary Care Provider Unavail Rafy Peacock Unavailable [phone] Allergies Allergen (clinical drug ingredient) Drug/Non Drug Allergy documented on EMR Reaction Allergy Type Onset Date Status Substance with sulfonamide structure and antibacterial mechanism of action (substance) Sulfa Antibiotics hives Drug Allergy Active REASON FOR VISIT Right Ankle Pain Medications Medication SIG (Take, Route, Frequency, Duration) Notes Start Date End Date Status glipiZIDE 5 MG Tablet Oral; Duration: 90 Days Active metFORMIN HCl 500 MG Tablet Oral; Duration: 90 Days Acti ve Lexapro Active traZODone HCl 100 MG Tablet Oral; Duration: 90 Days Acti ve Social History Sex Assigned At : Social History Observation Description Sex Assigned At Female Section Notes: Patient is a nonsmoker. No alcohol use. Encounters Encounter Location Date Provider Diagnosis [facility] [address] [address], [place] [address] 08/19/2025 Rafy Burdick Posterior tibial tendon dysfunction, right M76.821 Assessments Encounter Date Diagnosis (ICD Code) Assessment Notes Treatment Notes Treatment Clinical Notes Section Notes 08/19/2025 Posterior tibial tendon dysfunction, right (ICD-10 - M76.821) I had a lengthy discussion with Kyung today who again relates she is pursuing snf disability. I related to her after undergoing two surgeries for the same issue in a short period of time will increase her time of maximal medical benefit. I do not believe she is fully recovered nor do I believe at this moment in time she is permanently disabled. She or her family has stopped in the office since last apt asking for me to fill out paperwork for permanent disability and I again explained that I do not fill out paperwork for permanent disability especially when I am not the treating surgeon. I believe she should f/u with Dr. June to improve continuity of care although I am happy to continue to see her however I believe she needs more time for her recovery to even consider additional surgery. I also stressed that she should d/c the boot as it may lead to additional issues with her gait. I recommended to fully tansition to an ASO ankle brace. She should finish PT as prescribed. I stressed that she needs to obtain her imaging records for [facility] (ie MRI and xrays) if she wants to continue to follow with me. Plan Of Treatment Treatment Notes Assessment Notes Posterior tibial tendon dysfunction, rig ht I had a lengthy discussion with Kyung today who again relates she is pursuing intermediate card tender disability. I related to her after undergoing two surgeries for the same issue in a short period of time will increase her time of maximal medical benefit. I do not believe she is fully recovered nor do I believe at this moment in time she is permanently disabled. She or her family has stopped in the office since last apt asking for me to fill out paperwork for permanent disability and I again explained that I do not fill out paperwork for permanent disability especially when I am not the treating surgeon. I believe she should f/u with Dr. June to improve continuity of care although I am happy to continue to see her however I believe she needs more time for her recovery to even consider additional surgery. I also stressed that she should d/c the boot as it may lead to additional issues with her gait. I recommended to fully tansition to an ASO ankle brace. She should finish PT as prescribed. I stressed that she needs to obtain her imaging records for [facility] (ie MRI and xrays) if she wants to continue to follow with me. Next Appt Details Follow Up: 3 Months, Reason: Provider Name:Rafy mitchell, 11/18/2025 09:00:00 AM, [address] [facility] [address], [address], [place], [address], History and Physical Notes * HPI (History of Present Illness) Category Sub-Category Detail Notes Category Not es Foot Right excision of accessory navicular September [address] Brown Right excision of accessory navicular December [address] June Kyung Roche, a 34-year-old female, presented for a chronic condition follow-up focused on persistent pain, swelling, and weakness in her foot and ankle following two surgeries on her posterior tibial tendon. She described ongoing difficulties with recovery, noting that her progress has been much slower than after a previous surgery on the opposite side. Despite using braces, casts, and nightly ibuprofen PM for pain, she continues to experience significant functional limitations that affect her daily life and work. She also tried mobic without help. I prescribed topical compound at her first apt with me (May 2025) and it does help a little. F/u MRI at the [facility] (May 2025) due to her slow recovery and she has not been able to obtain the disc for my review. She last followed up with Dr June shortly after the MRI. She has nearly finished her 6 weeks of PT which has included US, e-stim and pool therapy. She states today overall it is no better. She presents today in short CAM boot but she relates she does wear her ASO often. She is not sure which helps more. Examination Category Sub-Category Detail Notes Category Not es Orthopedic Skin:skin intact with no open wounds. No signs of infection Neuro:light touch intact to dorsal & plantar foot. Negative tinel's sign Vascular:Palpable pedal pulses. Swelling right tarsal tunnel. No bruising. No calf pain on squeeze MSK:POP right navicular tuberosity. There is weakness on inversion on the right compared to the left. Arch collapse when in stance right worse the left. No pain over the sinus tarsi or evidence of subfibular impingement with palpation, ROM or when in stance. Progress Notes * Kevin ROCHEiDOB:1990 ([age] yo F)Acc No.[id number]:08/19/2025 Progress Notes Patient: Kyung De Leon Provider: Cristine Burdick DPM :1990 A ge:35 Y S ex:Female Date:08/19/2025 Phone: Address:[address] [place] [address], , [place], [phone] Pcp:Monique Landry er, FACULTY SUPPORT COORDINATOR Subjective: * Chief Complaints: * R ight Ankle Pain * HPI: F oot: Right excision of accessory navicular September [address] Koehler Right excision of accessory navicular December [address] June Kyung Roche, a 34-year-old female, presented for a chronic condition follow-up focused on persistent pain, swelling, and weakness in her foot and ankle following two surgeries on her posterior tibial tendon. She described ongoing difficulties with recovery, noting that her progress has been much slower than after a previous surgery on the opposite side. Despite using braces, casts, and nightly ibuprofen PM for pain, she continues to experience significant functional limitations that affect her daily life and work. She also tried mobic without help. I prescribed topical compound at her first apt with me (May 2025) and it does help a little. F/u MRI at the [facility] (May 2025) due to her slow recovery and she has not been able to obtain the disc for my review. She last followed up with Dr June shortly after the MRI. She has nearly finished her 6 weeks of PT which has included US, e-stim and pool therapy. She states today overall it is no better. She presents today in short CAM boot but she relates she does wear her ASO often. She is not sure which helps more. * Medical History: Anemia Diabetes GERD Medical History Verified * Surgical History: Right Accessory navicular bone removed then revision surgery on it Left Foot Accessory navicular bone removal Gallbladder Shoulder Surgery Right Accessory navicular bone removed then revision surgery on it Left Foot Accessory navicular bone removal Gallbladder Shoulder Surgery Left excision of accessory navicular [address] Koehler Right excision of accessory navicular September [address] Koehler 09/2024 Right excision of accessory navicular December [address] June 12/2024 Surgical History verified. * Family History: M other: diagnosed with Type 2 diabetes mellitus without complication, unspecified whether intermediate card tender insulin use, Essential hypertension, Heart disease. S ister: diagnosed with Heart disease. F amily History Verified.. * Social History: Social History Verified. P nida is a nonsmoker. No alcohol use. * Medications: T akingLexapro metFORMIN HCl 500 MG Tablet Oral glipiZIDE 5 MG Tablet Oral traZODone HCl 100 MG Tablet Oral Medication List reviewed and reconciled with the patientTaking Lexapro Taking metFORMIN HCl 500 MG Tablet Oral Taking glipiZIDE 5 MG Tablet Oral Taking traZODone HCl 100 MG Tablet Oral Medication List reviewed and reconciled with the patient * Allergies: S ulfa Antibiotics: hivesyesAllergies Verified. Objective: * Examination: O rthopedic: S kin:skin intact with no open wounds. No signs of infection Neuro:light touch intact to dorsal & plantar foot. Negative tinel's sign Vascular:Palpable pedal pulses. Swelling right tarsal tunnel. No bruising. No calf pain on squeeze MSK:POP right navicular tuberosity. There is weakness on inversion on the right compared to the left. Arch collapse when in stance right worse the left. No pain over the sinus tarsi or evidence of subfibular impingement with palpation, ROM or when in stance. Assessment: * Assessment: 1. P osterior tibial tendon dysfunction, right - M76.821 (Primary) Plan: * Treatment: * Follow Up: 3 Months Billing Information: * Visit Code: 11928 Office Visit, Est Pt., Level 3. * Procedure Codes: * Sign off status: Completed true * Provider: Cristine Burdick DPM Date: 0 08/19/2025 Generated for Jonnie leoanrd/Estella/Lucioitting on: 08/27/2025 09:58 AM EDT
--- OUTSIDE RECORDS SUMMARY | 2025-08-27 09:59 | XMS_ITS | Patient Health Record ---
Author Organization [facility] Address [address] [place] [address] Care Team Providers Care Grain Unloader Name Role Phone Grant Reinaldo Primary Care Provider [phone] Lizzette Jones Unavailable Mey Duong Unavailable [phone] Katrin Duran Unavailable [phone] Tina Carrasco Unavailable [phone] Reason For Referral No Information Encounters Encounter Location Date Provider Diagnosis [facility] [address] [place] [address] 02/28/2025 Meycurt Duong Acute gingivitis, plaque induced K05.00 [facility] [address] [place] [address] 08/29/2024 Mey Duong Acute gingivitis, plaque induced K05.00 ; Other dental procedure status Z98.818 ; Encounter for dental examination and cleaning with abnormal findings Z01.21 ; Dental caries on pit and fissure surface penetrating into dentin K02.52 and Disturbances in tooth eruption K00.6 [place] [address] [facility] [place] [address] 09/18/2024 Lizzette Paredes Dental caries on pit [...] Name:Peter Ascencio, 1 04:30:00 PM, [address], [place], [address], Provider Name:Mey Duong , 09/12/2025 03:30:00 PM, [address], [place], [address], Insurance Providers Payer Name Payer Address Payer Phone Subscriber Number Group Number Insured Name Patient Relationship to Insured Coverage Start Date Coverage End Date ANTHEM Primary [address] [place] [address] [id number] NOEL ROCHE Self - patient is the insured 3 [employer] PPO [address] [place] [address] [id number] DELORES ROCHE Spouse - patient is the spouse of the insured 3
--- OUTSIDE RECORDS SUMMARY | 2025-08-27 09:59 | XMS_ITS | Encounter Summary ---
Author Organization [facility] Address [address] [place] [address] Care Team Providers Care Employment Legal Assistant Name Role Phone Monique Razo MD Unavailable [phone] Unallocated, Keily Romeo MD Primary Care Provi anna Monique Razo MD Unavailable [phone] Erich Garcia MD Primary Care Provider [phone] Jaime Woods DO Unavailable [phone] Encounter Details Date Type Department Care Team (Late st Contact Info) Description 05/21/2024 Abstract [facility] [address] [place] [id number] Pato Koehler DPM [address] [address] Social History Tobacco Use Types [...] on filedocumented in this encounter Care Teams Employment Legal Assistant Relationship Specialty Start Date End Date Unallocated, [place] [address] PCP - General Family Medicine 03/29/24 07/23/24 Erich Garcia MD [address] [place] [phone] PCP - General Family Medicine 07/24/24 Monique Razo MD [address] [place] [address] Referring Physician Family Medicine 03/29/24 Monique Razo MD [address] [place] [address] Referring Physician Family Medicine 07/24/24 Jaime Woods DO [address] [place] [address] Otolaryngology 07/24/24 documented as of this encounter
--- OUTSIDE RECORDS SUMMARY | 2025-08-27 09:59 | XMS_ITS | Patient Health Record ---
Author Organization [facility] in [place] Address [address] [place] [address] Care Team Providers Care Clinical Dental Technician Name Role Phone Monique Emmanuel Primary Care Provider [phone] Mo Garcia [phone] Allergies Allergen (clinical drug ingredient) Drug/Non Drug Allergy documented on EMR Reaction Allergy Type Onset Date Status Substance with sulfonamide structure and antibacterial mechanism of action (substance) Sulfa Antibiotics rash/hives Drug Allergy Active Results Component Value Reference Range Notes GLYCOHEMOGLOBIN A1C Reviewed date:10/15/2024 09:36:10 AM Interpretation: Performing Lab: Notes/Report: [facility] , Glycohemoglobin A1C 6.6 4.5-6.2 % ADA RECOMMENDED LIMIT 4.0 - 6.0 ADA THERAPEUTIC TARGET < 7.0 ACTION SUGGESTED > 7.0 Estimated Average Glucose 143 Performing Lab: see note ML - [facility] LB XR chest 2V Reviewed date:07/12/2025 09:29:39 AM Interpretation: Performing Lab: Notes/Report: Source Facility: [facility]-[address] [place] [address] The [place] [id number] XRay Report Signed Patient: NOEL PAUL MR#: [id number] : 1990 Acct:[id number] Age/Sex: 35 / F ADM Date: 07/11/25 Loc: ER Attending Dr: Ordering Physician: Cain Dee Date of Service: 07/12/25 Procedure(s): XR chest 2V Accession Number(s): [id number] cc: MONIQUE EMMANUEL ; Cain Dee The [address] [address] Patient Name: NOEL PAUL MRN: [id number]:[id number] date: 1990 Sex: F Assigned Patient Location: ER Current Patient Location: Accession/Order Number: [id number] Exam Date: 07/12/2025 08:40 Report Date: 07/12/2025 08:42 At the request of: CAIN DEE MD Procedure: XR chest 2V Chest 2 views CLINICAL HISTORY: CP COMPARISON: Chest performed earlier today FINDINGS: Cardiomegaly with vascular congestion is similar to the prior study. No consolidation pneumothorax pleural effusion or free air XR/XR chest 2V IMPRESSION: CHF FINDINGS SIMILAR TO THE PRIOR STUDY. Impression dictated by: Peter White Jr., D.O. 07/12/2025 8:42 AM Dictation Location: [place] [address] Electronically authenticated by: [id number] Y Date: 07/12/2025 08:42 Dictated By: Peter White M.D. Signed By: 07/12/25 0844 DD/ 0842 TD/TT: Personnel Counselor: GLYCOHEMOGLOBIN A1C Reviewed date:02/11/2025 04:35:45 PM Interpretation: Performing Lab: Notes/Report: [facility] , Glycohemoglobin A1C 6.9 4.5-6.2 % ADA RECOMMENDED LIMIT 4.0 - 6.0 ADA THERAPEUTIC TARGET < 7.0 ACTION SUGGESTED > 7.0 Estimated Average Glucose 151 Performing Lab: see note ML - [facility] LB IRON Reviewed date:02/11/2025 04:35:45 PM Interpretation: Performing Lab: Notes/Report: [facility] , Iron 39.0 50.0-170.0 ug/dL Performing Lab: see note ML - [facility] LB Blood Culture 1 Reviewed date:11/26/2024 08:31:42 AM Interpretation: Performing Lab: Notes/Report: RIGHT AC IV START [facility] , Blood Culture 1 See Below For Report Blood Culture 1 NG5D NO GROWTH AT 5 DAYS. Performing Lab: see note ML - [facility] LB Blood Culture 2 Reviewed date:11/26/2024 08:31:42 AM Interpretation: Performing Lab: Notes/Report: LEFT AC [facility] , Blood Culture 2 See Below For Report Blood Culture 2 NG5D NO GROWTH AT 5 DAYS. Performing Lab: see note ML - [facility] LB CBC AUTO DIFF Reviewed date:11/26/2024 08:31:42 AM Interpretation: Performing Lab: Notes/Report: [facility] , White Blood Count 9.0 4.0-11.0 [...] 10 3/uL Performing Lab: see note - [facility] LB PROF 14(COMP METB) Reviewed date:11/26/2024 08:31:42 AM Interpretation: Performing Lab: Notes/Report: [facility] , Sodium 139 136-145 mmol/L Potassium [...] 0.7 Performing Lab: see note ML - [facility] LB CT soft tissue neck w con Reviewed date:11/26/2024 08:24:16 AM Interpretation: Performing Lab: Notes/Report: Source Facility: [facility]-[address] [place] [address] CT Scan Report Signed Patient: NOEL PAUL MR#: [id number] : 1990 Acct:[id number] Age/Sex: 34 / F ADM Date: 11/20/24 Loc: ER Attending Dr: Ordering Physician: Mickie Quijano D.O. Date of Service: 11/20/24 Procedure(s): CT soft tissue neck w con Accession Number(s): [id number] cc: MONIQUE EMMANUEL [place] [address] Patient Name: NOEL PAUL MRN: [id number] date: 1990 Sex: F Assigned Patient Location: ER Current Patient Location: ER Accession/Order Number: [id number] Exam Date: 11/20/2024 21:30 Report Date: 11/20/2024 [...] M.D. Signed By: 11/20/242331 DD/ 29 TD/TT: Personnel Counselor: CBC AUTO DIFF Reviewed date:03/06/2025 11:14:33 AM Interpretation: Performing Lab: Notes/Report: [facility] , White Blood Count 12.3 4.0-11.0 [...] Performing Lab: see note ML - [facility] LB LACTATE or LACTIC ACID Reviewed date:03/06/2025 11:14:33 AM Interpretation: Performing Lab: Notes/Report: [facility] , Lactate/Lactic Acid 1.0 0.4-2.0 mmol/L Performing Lab: see note ML - [facility] LB LIPASE Reviewed date:03/06/2025 11:14:33 AM Interpretation: Performing Lab: Notes/Report: [facility] , Lipase 34.0 16.0-77.0 U/L Performing Lab: see note ML - [facility] LB PREG QUANT HCG Reviewed date:03/06/2025 11:14:33 AM Interpretation: Performing Lab: Notes/Report: [facility] , HCG Quantitative <1 5-50 0.2-1 WEEK 50-500 1-2 WEEKS 100-5,000 2-3 WEEKS 500-10,000 3-4 WEEKS 1,000-50,000 4-5 WEEKS 10,000-100,000 5-6 WEEKS 15,000-200,000 6-8 WEEKS 10,000-100,000 2-3 MONTHS Performing Lab: see note ML - [facility] PROF 14(COMP METB) Reviewed date:03/06/2025 11:14:33 AM Interpretation: Performing Lab: Notes/Report: [facility] , Sodium 141 136-145 mmol/L Potassium [...] Performing Lab: see note ML - [facility] LB XR chest 1V Reviewed date:07/12/2025 09:29:39 AM Interpretation: Performing Lab: Notes/Report: Source Facility: [place] [address] [address] XRay Report Signed Patient: NOEL PAUL MR#: [id number] : 1990 Acct:[id number] Age/Sex: 35 / F ADM Date: 07/11/25 Loc: ER Attending Dr: Ordering Physician: Cain Dee Date of Service: 07/12/25 Procedure(s): XR chest 1V Accession Number(s): [id number] cc: MONIQUE EMMANUEL ; Cain Dee [place] [address] Patient Name: NOEL PAUL MRN: [id number] date: 1990 Sex: F Assigned Patient Location: ER Current Patient Location: Accession/Order Number: [id number] Exam Date: 07/12/2025 08:39 Report Date: 07/12/2025 08:40 At the request of: CAIN DEE MD Procedure: XR chest 1V Single view chest: CLINICAL HISTORY: CP COMPARISON: Chest 11/05/2024 FINDINGS: Suboptimal due to body habitus. Cardiomegaly or vascular congestion. No consolidation pneumothorax large pleural effusion or free air. XR/XR chest 1V IMPRESSION: CHF FINDINGS. Impression dictated by: Peter White Jr., D.O. 07/12/2025 8:40 AM Dictation Location: [place] [address] Electronically authenticated by: [id number] Y Date: 07/12/2025 08:40 Dictated By: Peter White M.D. Signed By: 07/12/25 0843 DD/ TD/TT: Personnel Counselor: CBC AUTO DIFF Reviewed date:07/26/2025 10:20:28 AM Interpretation: Performing Lab: Notes/Report: [facility] , White Blood Count 14.3 4.0-11.0 10 3/uL Red Blood Count 4.91 4.20-5.40 10 6/uL Hemoglobin 12.2 12.0-16.0 g/dL Hematocrit 40.0 36.0-48.0 % Mean Corpuscular Volume 81.5 81.0-99.0 fL Mean Corpuscular Hemoglobin 24.8 26.7-34.0 pg Mean Corpuscular HGB Conc 30.5 29.9-35.2 g/dL Red Cell Distribution Width 15.4 11.0-15.0 % Platelet Count 388 150-450 10 3/uL Mean Platelet Volume 9.3 9.5-13.5 fL Neutrophils Percent Auto 76.6 43.0-75.0 % Lymphocytes Percent Auto 15.0 20.5-60.0 % Monocytes Percent Auto 4.9 1.7-12.0 % Eosinophils Percent Auto 2.7 0.9-7.0 % Basophils Percent Auto 0.4 0.2-2.0 % Immature Granulocytes Pct Auto 0.4 0.0-0.5 % Neutrophils Absolute Auto 10.9 1.4-6.5 10 3/uL Lymphocytes Absolute Auto 2.1 1.2-3.8 10 3/uL Monocytes Absolute Auto 0.7 0.3-0.8 10 3/uL Eosinophils Absolute Auto 0.4 0.0-0.7 10 3/uL Basophils Absolute Auto 0.1 0.0-0.1 10 3/uL Immature Granulocytes Abs Auto 0.05 0.00-0.03 10 3/uL Performing Lab: see note ML - [facility] LB PROF 14(COMP METB) Reviewed date:07/26/2025 10:20:28 AM Interpretation: Performing Lab: Notes/Report: [facility] , Sodium 141 136-145 mmol/L Potassium 3.8 3.5-5.1 mmol/L Chloride 105 98-107 mmol/L Carbon Dioxide 25.6 21.0-32.0 mmol/L Anion Gap 14.2 Glucose 89 74-106 mg/dL Blood Urea Nitrogen 17.0 7.0-18.0 mg/dL Creatinine 0.84 0.55-1.02 mg/dL Estimated GFR ( Rasheeda >60 >=60 mL/min/1.73m 2 Estimated GFR (Non- Yamel >60 >=60 mL/min/1.73m 2 BUN Creatinine Ratio 20.2 Calcium 9.0 8.5-10.1 mg/dL Bilirubin Total 0.8 0.2-1.0 mg/dL Aspartate Amino Transferase 25 15-37 U/L Alanine Aminotransferase 61 14-59 U/L Alkaline Phosphatase 75 46-116 U/L Total Protein 8.3 6.4-8.2 g/dL Albumin Level 3.5 3.4-5.0 g/dL Globulin 4.8 Albumin Globulin Ratio 0.7 Performing Lab: see note ML - [facility] LB HCG Qualitative* Reviewed date:07/26/2025 10:20:28 AM Interpretation: Performing Lab: Notes/Report: [facility] , HCG Qualitative NEGATIVE NEGATIVE Performing Lab: see note ML - [facility] LB CT head/brain wo con Reviewed date:07/26/2025 10:20:28 AM Interpretation: Performing Lab: Notes/Report: Source Facility: [place] [address] CT Scan Report Signed Patient: NOEL PAUL MR#: [id number] : 1990 Acct:[id number] Age/Sex: 35 / F ADM Date: 07/25/25 Loc: ER Attending Dr: Ordering Physician: Margarita Vasquez Date of Service: 07/25/25 Procedure(s): CT head/brain wo con Accession Number(s): [id number] cc: MONIQUE EMMANUEL [place] [address] Patient Name: NOEL PAUL MRN: [id number] date: 1990 Sex: F Assigned Patient Location: ED.MAIN Current Patient Location: ED.MAIN Accession/Order Number: [id number] Exam Date: 07/25/2025 19:05 Report Date: 07/25/2025 19:32 At the request of: MARGARITA VASQUEZ MD Procedure: CT head/brain wo con CT head/brain wo con 07/25/2025 7:10 PM SIGNS AND SYMPTOMS: migraine headache blurry vision TECHNIQUE:Multi-detector CT axial slices of the brain were obtained without IV contrast. CT was performed with one or more of the following dose reduction techniques: Automated exposure control, adjustment of the mA and/or kV according to patient size, or use of iterative reconstruction technique. COMPARISON: None. FINDINGS: There is no shift of the midline structures, acute intracranial bleeding, mass effects, or evidence of acute ischemia. The ventricular system is normal in size. The brainstem and the cerebellum are unremarkable. The visualized intraorbital contents, the visualized paranasal sinuses, and the infratemporal soft tissues show no acute abnormality. The osseous structures in the skull base and the calvarium show no abnormality. CT/CT head/brain wo con IMPRESSION: Normal noncontrasted CT brain. Impression dictated by: Fermín Wilks M.D. 07/25/2025 7:32 PM Dictation Location: [place] [address] Electronically authenticated by: [id number] Y Date: 07/25/2025 19:32 Dictated By: Fermín Wilks M.D. Signed By: 07/25/251933 DD/ 31 TD/TT: Personnel Counselor: XR ankle RT min 3V Reviewed date:06/14/2025 10:35:52 AM Interpretation: Performing Lab: Notes/Report: Source Facility: [place] [address] XRay Report Signed Patient: NOEL PAUL MR#: [id number] : 1990 Acct:[id number] Age/Sex: 34 / F ADM Date: 06/14/25 Loc: RAD Attending Dr: Enoch Burdick D.P.M. Ordering Physician: Enoch Burdick D.P.M. Date of Service: 06/14/25 Procedure(s): XR ankle RT min 3V Accession Number(s): [id number] cc: MONIQUE EMMANUEL ; Enoch Burdick D.P.M. [place] [address] Patient Name: NOEL PAUL MRN: [id number] date: 1990 Sex: F Assigned Patient Location: RAD Current Patient Location: RAD Accession/Order Number: [id number] Exam Date: 06/14/2025 10:19 Report Date: 06/14/2025 [...] Adames M.D. 06/14/2025 10:27 AM Dictation Location: [place] [address] Electronically authenticated by: [id number] Y Date: 06/14/2025 10:27 Dictated By: Leisa Adames M.D. Signed By: 06/14/25 1030 DD/ 1027 TD/TT: Personnel Counselor: CBC AUTO DIFF Reviewed date:02/11/2025 04:35:45 PM Interpretation: Performing Lab: Notes/Report: [facility] , White Blood Count 10.9 4.0-11.0 [...] Performing Lab: see note ML - [facility] LB XR ankle LT min 3V Reviewed date:01/21/2025 08:55:44 AM Interpretation: Performing Lab: Notes/Report: Source Facility: [place] [address] XRay Report Signed Patient: NOEL PAUL MR#: [id number] : 1990 Acct:[id number] Age/Sex: 34 / F ADM Date: 01/19/25 Loc: ER Attending Dr: Ordering Physician: Abdon Webre D.O. Date of Service: 01/19/25 Procedure(s): XR ankle LT min 3V Accession Number(s): [id number] cc: MONIQUE EMMANUEL ; Abdon Weber D.O. [place] [address] Patient Name: NOEL PAUL MRN: [id number] date: 1990 Sex: F Assigned Patient Location: ER Current Patient Location: ER Accession/Order Number: [id number] Exam Date: 01/19/2025 12:45 Report Date: 01/19/2025 [...] Fermín Wilks M.D.01/19/2025 12:47 PM Dictation Location: [place] [address] Electronically authenticated by: [id number] Y Date: 01/19/2025 12:47 Dictated By: Fermín Wilks M.D. Signed By: 01/19/25 1249 DD/ 1247 TD/TT: Personnel Counselor: CT facial bones w con Reviewed date:11/19/2024 08:28:29 AM Interpretation: Performing Lab: Notes/Report: Source Facility: [place] [address] CT Scan Report Signed Patient: NOEL PAUL MR#: [id number] : 1990 Acct:[id number] Age/Sex: 34 / F ADM Date: 11/17/24 Loc: ER Attending Dr: Ordering Physician: Vilma Goncalves Date of Service: 11/17/24 Procedure(s): CT facial bones w con Accession Number(s): [id number] cc: MONIQUE EMMANUEL [place] [address] Patient Name: NOEL PAUL MRN: [id number] date: 1990 Sex: F Assigned Patient Location: ER Current Patient Location: ER Accession/Order Number: [id number] Exam Date: 11/17/2024 16:00 Report Date: 11/17/2024 [...] M.D. Signed By: 11/17/241656 DD/ 53 TD/TT: Personnel Counselor: SARS-CoV-2 Ag* Reviewed date:11/19/2024 08:28:29 AM Interpretation: Performing Lab: Notes/Report: [facility] , SARS-CoV-2 Ag NEGATIVE NEGATIVE This [...] Performing Lab: see note ML - [facility] LB PROF 14(COMP METB) Reviewed date:11/19/2024 08:28:29 AM Interpretation: Performing Lab: Notes/Report: [facility] , Sodium 144 136-145 mmol/L Potassium [...] 0.7 Performing Lab: see note ML - [facility] LB CBC AUTO DIFF Reviewed date:11/19/2024 08:28:29 AM Interpretation: Performing Lab: Notes/Report: [facility] , White Blood Count 6.0 4.0-11.0 [...] 0.00-0.03 10 3/uL Performing Lab: see note [facility] LB PROF CHEM 8 (BAS METB) Reviewed date:11/06/2024 03:02:08 PM Interpretation: Performing Lab: Notes/Report: [facility] , Sodium 141 136-145 mmol/L Potassium [...] 8.9 8.5-10.1 mg/dL Performing Lab: see note - [facility] LB CBC AUTO DIFF Reviewed date:11/06/2024 03:02:08 PM Interpretation: Performing Lab: Notes/Report: [facility] , White Blood Count 17.8 4.0-11.0 [...] 10 3/uL Performing Lab: see note - [facility] LB Venous Blood Gas Reviewed date:11/06/2024 11:41:03 AM Interpretation: Performing Lab: Notes/Report: [facility] , pH VBG 7.326 7.330-7.430 PCO2 VBG 51.8 40.0-52.0 mmHg Performing Lab: see note - [facility] LB XR chest 1V Reviewed date:11/06/2024 03:02:08 PM Interpretation: Performing Lab: Notes/Report: Source Facility: [facility]-[address] [place] [address] [place] [address] XRay Report Signed Patient: NOEL PAUL MR#: [id number] : 1990 Acct:[id number] Age/Sex: 34 / F ADM Date: 11/05/24 Loc: MS 202-[address]: Shannon Garcia M.D. Ordering Physician: Shannon Garcia M.D. Date of Service: 11/05/24 Procedure(s): XR chest 1V Accession Number(s): [id number] cc: MONIQUE EMMAUNEL ; Shannon Garcia M.D. The [place] [id number] Patient Name: NOEL PAUL MRN: [id number] date: 1990 Sex: F Assigned Patient Location: MS Current Patient Location: MS Accession/Order Number: [id number] Exam Date: 11/05/2024 19:25 Report Date: 11/05/2024 [...] M.D. Signed By: 11/05/242208 DD/ 06 TD/TT: Personnel Counselor: PROF INGE Haas ([facility]) Reviewed date:11/06/2024 03:02:08 PM Interpretation: Performing Lab: Notes/Report: [facility] , Sodium 139 136-145 mmol/L Potassium [...] mg/dL Performing Lab: see note ML - [facility] LB CBC AUTO DIFF Reviewed date:11/06/2024 03:02:08 PM Interpretation: Performing Lab: Notes/Report: [facility] , White Blood Count 15.3 4.0-11.0 [...] 3/uL Performing Lab: see note ML - [facility] LB BNP Reviewed date:11/06/2024 03:02:08 PM Interpretation: Performing Lab: Notes/Report: [facility] , NT Pro B Type Natriuretic Pept 78.0 <=450.0 pg/mL Performing Lab: see note ML - [facility] LB Lower Respiratory Culture Reviewed date:11/09/2024 03:15:38 PM Interpretation: Performing Lab: Notes/Report: [facility] , Lower Respiratory Culture See Below For Report Lower Respiratory Culture WILL FOLLOW Lower Respiratory Culture Routine respir atory scot Lower Respiratory Culture WILL FOLLOW Lower Respiratory Culture Performed at: [facility] Lower Respiratory Culture WILL FOLLOW Lower Respiratory Culture [address], [place], [place] [address] Lower Respiratory Culture WILL FOLLOW Lower Respiratory Culture Nuts And Bolts Assembler: Kevin Fuller PhD, Phone: [phone] Lower Respiratory Culture WILL FOLLOW Performing Lab: see note LC - [facility] LB SEE REPORT - Director Of Grants Id information not found for OBX-specific stage producer legend Gram Stain Evaluation Reviewed date:11/09/2024 03:15:38 PM [...] 4 See Below For Report Result 4 PRODUCTION SUPERVISOR OFF SHIFT Performing Lab: see note LC - [facility] [...] Lab: see note LC - [facility] LB White Blood Cells Reviewed date:11/09/2024 03:15:37 PM Interpretation: Performing Lab: Notes/Report: [facility] , White Blood Cells See Below For Report White Blood Cells White Blood Cells Many White Blood Cells Performing Lab: see note LC - [facility] LB HCG Qualitative* Reviewed date:11/05/2024 12:33:13 PM Interpretation: Performing Lab: Notes/Report: [facility] , HCG Qualitative NEGATIVE NEGATIVE Performing Lab: see note - [facility] LB Venous Blood Gas Reviewed date:11/06/2024 11:41:03 AM Interpretation: Performing Lab: Notes/Report: [facility] , pH VBG 7.387 7.330-7.430 PCO2 VBG 44.8 40.0-52.0 mmHg Performing Lab: see note - [facility] LB CBC AUTO DIFF Reviewed date:11/05/2024 12:21:30 PM Interpretation: Performing Lab: Notes/Report: [facility] , White Blood Count 11.8 4.0-11.0 [...] Performing Lab: see note ML - [facility] LB ECG 12 lead Reviewed date:10/29/2024 12:06:57 PM Interpretation: Performing Lab: Notes/Report: Source Facility: [facility]-[address] [place] [address] [place] [address] Electrocardiograph Report Signed Patient: NOEL PAUL MR#: [id number] : 1990 Acct:[id number] Age/Sex: 34 / F ADM Date: 10/26/24 Loc: PST Attending Dr: Gaurav Snyder M.D. Ordering Physician: Gaurav Snyder M.D. 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 Signed By: 10/28/24 0735 DD/ 1047 TD/TT: Personnel Counselor: PROF INGE Haas ([facility]) Reviewed date:10/29/2024 12:06:57 PM Interpretation: Performing Lab: Notes/Report: [facility] , Sodium 139 136-145 mmol/L Potassium [...] mg/dL Performing Lab: see note ML - [facility] LB CBC AUTO DIFF Reviewed date:10/29/2024 12:06:57 PM Interpretation: Performing Lab: Notes/Report: [facility] , White Blood Count 11.1 4.0-11.0 [...] 3/uL Performing Lab: see note ML - [facility] LB Erythrocyte Sedimentation Ra te Reviewed date:10/23/2024 09:49:43 AM Interpretation: Performing Lab: Notes/Report: [facility] , Erythrocyte Sedimentation Rate 82 <=20 mm/hr Performing Lab: see note ML - [facility] LB PROF CHEM 8 (BAS METB) Reviewed date:10/23/2024 09:49:43 AM Interpretation: Performing Lab: Notes/Report: [facility] , Sodium 139 136-145 mmol/L Potassium [...] Performing Lab: see note ML - [facility] LB CRP Reviewed date:10/23/2024 09:49:43 AM Interpretation: Performing Lab: Notes/Report: [facility] , C Reactive Protein 3.76 <=0.50 mg/dL Performing Lab: see note ML - [facility] LB CBC AUTO DIFF Reviewed date:10/23/2024 09:49:43 AM Interpretation: Performing Lab: Notes/Report: [facility] , White Blood Count 13.5 4.0-11.0 [...] 3/uL Performing Lab: see note ML - [facility] LB ECG 12 lead Reviewed date:07/15/2025 01:04:53 PM Interpretation: Performing Lab: Notes/Report: Source Facility: [place] [address] Electrocardiograph Report Signed Patient: NOEL PAUL MR#: [id number] : 1990 Acct:[id number] Age/Sex: 35 / F ADM Date: 07/11/25 Loc: ER Attending Dr: Ordering Physician: Cain Dee Date of Service: 07/11/25 Procedure(s): ECG 12 lead Accession Number(s): [id number] cc: [facility] Test Date: 2025-07-11 Pat Name: NOEL PAUL Department: Room: - Gender: Female Geek [employer] 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 Measurements Intervals [place]dwell Rate: 81 P: 61 AL: 172 QRS: 54 QRSD: 86 T: 37 QT: 346 QTc: 383 Interpretive Statements 1100 Sinus rhythm 9110 normal ECG Compared to ECG 10/26/2024 10:47:36 No significant changes Electronically Signed On 07-12-2025 20:49:34 EDT by PRADEEP ROLLINS M.D. Dictated By: PRADEEP ROLLINS Signed By: 07/12/252048 DD/ 45 TD/TT: Personnel Counselor: Troponin I High Sensitivity Reviewed date:07/12/2025 09:29:39 AM Interpretation: Performing Lab: Notes/Report: [facility] , Troponin I High Sensitivity 4.4 4.0-51.3 pg/mL CUT-OFF POINTS HAVE BEEN ESTABLISHED BASED ON THE FOURTH UNIVERSAL DEFINITION OF MYOCARDIAL INFARCTION. THE UPPER REFERENCE LIMIT (URL) OF TROPONIN, DEFINED THE 99TH PERCENTILE OF cTnI DISTRIBUTION IN A REFERENCE POPULATION, HAS BEEN CONFIRMED THE DECISION THRESHOLD FOR OK DIAGNOSIS. 99TH PERCENTILE = 51.4 PG/ML NOTE: HIGH-SENSITIVITY TROPONIN ASSAY IS NOT INTENDED TO BE USED IN ISOLATION BUT SHOULD BE INTERPRETED IN CONJUNCTION WITH OTHER DIAGNOSTIC AND CLINICAL INFORMATION. Performing Lab: see note ML - [facility] LB PROF 14(COMP METB) Reviewed date:07/12/2025 09:29:39 AM Interpretation: Performing Lab: Notes/Report: The [facility] , Sodium 137 136-145 mmol/L Potassium 3.7 3.5-5.1 mmol/L Chloride 103 98-107 mmol/L Carbon Dioxide 30.7 21.0-32.0 mmol/L Anion Gap 7.0 Glucose 194 74-106 mg/dL Blood Urea Nitrogen 14.0 7.0-18.0 mg/dL Creatinine 0.82 0.55-1.02 mg/dL Estimated GFR ( Rasheeda >60 >=60 mL/min/1.73m 2 Estimated GFR (Non- Yamel >60 >=60 mL/min/1.73m 2 BUN Creatinine Ratio 17.1 Calcium 9.1 8.5-10.1 mg/dL Bilirubin Total 0.6 0.2-1.0 mg/dL Aspartate Amino Transferase 17 15-37 U/L Alanine Aminotransferase 35 14-59 U/L Alkaline Phosphatase 64 46-116 U/L Total Protein 7.4 6.4-8.2 g/dL Albumin Level 3.3 3.4-5.0 g/dL Globulin 4.1 Albumin Globulin Ratio 0.8 Performing Lab: see note ML - [facility] LB D-DIMER Reviewed date:07/12/2025 09:29:39 AM Interpretation: Performing Lab: Notes/Report: [facility] , D Dimer 0.24 <=0.59 mg/L FEU Increases in D-Dimer concentration observed with thromboembolic events can be variable due to localization, size, and age of the thrombus. Therefore, a thromboembolic event cannot be diagnosed with certainty on the basis of the reference range. D-Dimers may also be elevated for a variety of disorders including advanced age, , coronary disease, cancer, liver disease, infection, inflammation, hematoma, DIC, trauma, post-surgery, diabetes, thrombolytic or anticoagulant therapy, stress, and generalized hospitalization. Performing Lab: see note ML - [facility] LB CBC AUTO DIFF Reviewed date:07/12/2025 09:29:39 AM Interpretation: Performing Lab: Notes/Report: [facility] , White Blood Count 10.7 4.0-11.0 10 3/uL Red Blood Count 4.58 4.20-5.40 10 6/uL Hemoglobin 11.9 12.0-16.0 g/dL Hematocrit 37.5 36.0-48.0 % Mean Corpuscular Volume 81.9 81.0-99.0 fL Mean Corpuscular Hemoglobin 26.0 26.7-34.0 pg Mean Corpuscular HGB Conc 31.7 29.9-35.2 g/dL Red Cell Distribution Width 15.4 11.0-15.0 % Platelet Count 316 150-450 10 3/uL Mean Platelet Volume 9.2 9.5-13.5 fL Neutrophils Percent Auto 68.8 43.0-75.0 % Lymphocytes Percent Auto 22.0 20.5-60.0 % Monocytes Percent Auto 4.1 1.7-12.0 % Eosinophils Percent Auto 4.0 0.9-7.0 % Basophils Percent Auto 0.6 0.2-2.0 % Immature Granulocytes Pct Auto 0.5 0.0-0.5 % Neutrophils Absolute Auto 7.3 1.4-6.5 10 3/uL Lymphocytes Absolute Auto 2.3 1.2-3.8 10 3/uL Monocytes Absolute Auto 0.4 0.3-0.8 10 3/uL Eosinophils Absolute Auto 0.4 0.0-0.7 10 3/uL Basophils Absolute Auto 0.1 0.0-0.1 10 3/uL Immature Granulocytes Abs Auto 0.05 0.00-0.03 10 3/uL Performing Lab: see note ML - [facility] LB MR foot RT wo con Reviewed date:10/18/2024 01:38:15 PM Interpretation: Performing Lab: Notes/Report: Source Facility: [facility]-[address] [place] [address] Magnetic Resonance Report Signed Patient: NOEL PAUL MR#: [id number] : 1990 Acct:[id number] Age/Sex: 34 / F ADM Date: 10/16/24 Loc: MRI Attending Dr: TIARA AVELAR Ordering Physician: TIARA AVELAR Date of Service: 10/16/24 Procedure(s): MR foot RT wo con Accession Number(s): [id number] cc: TIARA AVELAR ; MONIQUE EMMANUEL [place] [address] Patient Name: NOEL PAUL MRN: [id number] date: 1990 Sex: F Assigned Patient Location: MRI Current Patient Location: MRI Accession/Order Number: [id number] Exam Date: 10/16/2024 09:54 Report Date: 10/18/2024 [...] appear intact on the edge of the [id number] of the sagittal images. There is no [...] Signed By: 10/18/24 1106 DD/ 1104 TD/TT: Personnel Counselor: Reason For Referral Reason sleep study Diagnosis 1 Snoring (R06.83) Referral Organization [facility] Referring Provider First Name Monique Referring Provider Last Name Danni Referring Provider [facility] Referred Provider [facility] Referred Provider Specialty Sleep Medici ne Referral Priority Routine Reason right thigh pain Diagnosis 1 Right leg pain (M79. 604) Referral Organization [facility] Referring Provider First Name Monique Referring Provider Last Name Danni Referring [facility] Referred Provider [facility], Physical Therap y Referred Provider Specialty Physical The rapist Referral Priority Routine Diagnosis 1 Vision abnormalities (H53.9) Referral Organization [facility] Referring Provider First Name Monique Referring Provider Last Name Danni Referring Provider [facility] Referred Provider Nelson, Christopher Referred Provider Specialty Neurology Referral Priority Routine Medications Medication SIG (Take, Route, Frequency, Duration) Notes Start Date End Date Status Ferrous Sulfate 325 (65 Fe) MG 1 tablet Orally Three times a Week; Duration: 30 days Active Escitalopram Oxalate 20 MG 1/2 tablet for the first week then 1 tablet Orally Once a day; Duration: 90 days Active Dexcom G7 Sensor - as directed; Duratio n: 28 days 09/20/2024 Active Dexcom G7 Time Clock Repairer - USE DIRECTED; Duration: 30 Active traZODone HCl 100 MG TAKE 1 TABLET BY [facility] EVERYDAY AT BEDTIME NEEDED; Duration: 90 days Active OneTouch Ultra - USE 1 STRIP TO TEST FASTING BLOOD SUGAR ONCE EVERY MORNING; Duration: 90 Active OneTouch Delica Plus [id number] - USE TO TEST BLOOD SUGAR ONCE EVERY MORNING; Duration: 90 Active Omeprazole 20 MG TAKE 1 CAPSULE BY MOUTH EVERY DAY; Duration: 90 Active Natural Vitamin D-3 125 MCG (5000 UT) TAKE 1 TABLET BY MOUTH EVERY DAY FOR 30 DAYS; Duration: 90 Active metFORMIN HCl 500 MG TAKE 1 TABLET BY [facility] TWICE A DAY WITH A MEAL FOR 30 DAYS; Duration: 90 Active Mounjaro 5 MG/0.5ML as directed Subcutaneous weekly; Duration: 28 days call for next dose 06/20/2025 Active glipiZIDE 5 MG one tablet po BID; Duration: 90 days Active Immunizations Vaccine Route Administration [...] Problem Status W/U Status Risk Notes Problem Hyperglycemia due to type 2 diabetes mellitus (576584668029574) Type 2 diabetes mellitus with hyperglycemia (E11.65) Active confirmed Problem Morbid obesity (disorder) (392734911) Morbid (severe) obesity due to excess calories (E66.01) Active confirmed Problem Gout (92658949) Gout, unspecified (M10.9) Active confirmed Problem Contracture, unspecified foot (M24.576) Active confirmed Problem Tibialis tendinitis (22954817) Posterior tibial tendinitis, left leg (M76.822) Active confirmed Problem 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) (355472093) Other congenital malformations of lower limb(s), 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 confirmed Problem Gastroesophageal reflux disease (528282801) GERD (gastroesophagea l reflux disease) (K21.9) Active confirmed Problem Anxiety (24340861) Anxiety (F41.9) Active confi rmed Problem Obstructive sleep apnea syndrome (77877134) AQUILES (obstructive sleep apnea) (G47.33) Active confirmed Problem Insomnia (511327505) Insomnia (G47.00) Active confirmed Problem Otitis externa of left ear (7593077573883837) External otitis of left ear (H60.92) Active confirmed Problem Sialoadenitis (63680282) Salivary gland adenitis (K11.20) Active confirmed Problem Morbid obesity (245130622) Class 3 obesity (E66.01) Active confirmed Vital Signs Temperature 98.1 degrees Fahrenheit 11/22/2024 Oximetry 96 % 11/08/2024 Blood pressure diastolic 80 mm Hg 08/01/2025 Height 61 in 08/01/2025 Blood pressure systolic 130 mm Hg 08/01/2025 Weight 332.3 lbs 08/01/2025 BMI 62.78 kg/m2 08/01/2025 Encounters Encounter Location Date Provider Diagnosis [facility] [address] [place] [address] 10/16/2024 Monique Emmanuel Class 3 obesity E66. 01 and Type 2 diabetes mellitus with hyperglycemia E11.65 [facility] [address] [place] [address] 08/29/2024 Monique Emmanuel Pre-operative cleara nce Z01.818 [facility] [address] [place] [facility] [place] [place] [address] 11/08/2024 Monique Emmanuel Snoring R06.83 and Hypoxia R09.02 [facility] [address] [place] [place] [address] 11/22/2024 Mo Hojonh Salivary gland adeni tis K11.20 [facility] [address] [place] [place] [address] 12/06/2024 Monique Emmanuel Type 2 diabetes mellitus with hyperglycemia E11.65 and Fatigue R53.83 [facility] [address] [place] [place] [address] 05/09/2025 Monique Emmanuel Class 3 obesity E66. 01 [facility] [address] [place] [place] [address] 06/04/2025 Monique Emmanuel Class 3 obesity E66. 01 [facility] [address] [place] [address] 07/02/2025 Monique Emmanuel Class 3 obesity E66. 01 and Type 2 diabetes mellitus with hyperglycemia E11.65 [facility] [address] [place] [address] 06/20/2025 Monique Emmanuel Type 2 diabetes mellitus with hyperglycemia E11.65 ; Class 3 obesity E66.01 and AQUILES (obstructive sleep apnea) G47.33 [facility] [address] [place] [place] [address] 07/22/2025 Monique Emmanuel Right hip pain M25.5 51 ; Morbid (severe) obesity due to excess calories E66.01 and Right leg pain M79.604 [facility] [address] [place] [place] [address] 08/01/2025 Monique Emmanuel Blurred vision, bilateral H53.8 and Right hip pain M25.551 [facility] [address] [facility] [place] [address] 09/20/2024 Monique Emmanuel Type 2 diabetes mellitus with hyperglycemia E11.65 [facility] [address] [place] [place] [address] 09/25/2024 Monique Emmanuel [facility] [address] [facility] [place] [address] 10/09/2024 Monique Emmanuel Type 2 diabetes mellitus with hyperglycemia E11.65 [facility] [address] [facility] [place] [address] 10/15/2024 Monique Emmanuel [facility] [address] [facility] [place] [address] 11/06/2024 Mo Hojonh [facility] [address] [facility] [place] [address] 11/08/2024 Monique Emmanuel Pneumonia J18.9 [facility] [address] [facility] [place] [address] 01/14/2025 Monique Emmanuel Type 2 diabetes mellitus with hyperglycemia E11.65 [facility] [address] [facility] [place] [address] 02/06/2025 Monique Emmanuel Fatigue R53.83 [facility] [address] [facility] [place] [address] 02/11/2025 Monique Emmanuel Low iron E61.1 [facility] [address] [facility] [place] [address] 04/09/2025 Monique Emmanuel Class 3 obesity E66. 01 [facility] [address] [facility] [place] [address] 06/17/2025 Monique Emmanuel [facility] [address] [facility] [place] [address] 06/17/2025 Monique Emmanuel Class 3 obesity E66. 01 [facility] [address] [facility] [place] [address] 07/15/2025 Monique Emmanuel Type 2 diabetes mellitus with hyperglycemia E11.65 [facility] [address] [facility] [place] [address] 07/25/[address] [facility] [address] [place] [address] 08/06/2025 Monique Emmanuel Type 2 diabetes mellitus with hyperglycemia E11.65 [facility] [address] [facility] [place] [address] 08/08/2025 Monique Danni Vision abnormalities H53.9 [facility] [address] [place] [place] [address] 08/16/2025 Moniquegisselle Whitleymer Low iron E61.1 Assessments Encounter Date Diagnosis (ICD Code) Assessment Notes Treatment Notes Treatment Clinical Notes Section Notes 10/16/2024 Class 3 obesity (ICD-10 - E66.01) work on diet fu one month CSA signed OARRS reviewed has taken in past 08/29/2024 Pre-operative clearance (ICD-10 - Z01.818) had sx in April , well labs reviewed normal state of health [...] obesity (ICD-10 - E66.01) work on diet 07/02/2025 Class 3 obesity (ICD-10 - E66.01) continue mounjaro fu 3 m work on diet 06/20/2025 Type 2 diabetes mellitus with hyperglycemia (ICD-10 - E11.65) 07/22/2025 Morbid (severe) obesity due to excess calories (ICD-10 - E66.01) continue mounjaro continue work on diet discussed referral [facility] food diary, bring in one month to review 3 m fu for wt check 07/22/2025 Right hip pain (ICD-10 - M25.551) kenalog 80 08/01/2025 Right hip pain (ICD-10 - M25.551) right thigh continue with PT 08/01/2025 Blurred vision, bilateral (ICD-10 - H53.8) comes and goes fu eye dr next week hold trazodone, newer med fu if not improving, neuro consult? 09/20/2024 Type 2 diabetes mellitus with hyperglycemia (ICD-10 - E11.65) 10/09/2024 Type 2 diabetes mellitus with hyperglycemia (ICD-10 - E11.65) 11/08/2024 Pneumonia (ICD-10 - J18.9) 01/14/2025 Type 2 diabetes mellitus with hyperglycemia (ICD-10 - E11.65) 02/06/2025 Fatigue (ICD-10 - R53.83) 02/11/2025 Low iron (ICD-10 - E61.1) 04/09/2025 Class 3 obesity (ICD-10 - E66.01) 06/17/2025 Class 3 obesity (ICD-10 - E66.01) 07/15/2025 Type 2 diabetes mellitus with hyperglycemia (ICD-10 - E11.65) 08/06/2025 Type 2 diabetes mellitus with hyperglycemia (ICD-10 - E11.65) 08/08/2025 Vision abnormalities (ICD-10 - H53.9) 08/16/2025 Low iron (ICD-10 - E61.1) 06/20/2025 Class 3 obesity (ICD-10 - E66.01) work on diet Mounjaro? 07/22/2025 Right leg pain (ICD-10 - M79.604) PT referral 10/16/2024 Type 2 diabetes mellitus with hyperglycemia (ICD-10 - E11.65) reviewed labs repeat A1c 3m continue monitor 07/02/2025 Type 2 diabetes mellitus with hyperglycemia (ICD-10 - E11.65) continue mounjaro fu Patient educated on Diabetic diet... Reviewed Hypoglycemia / Hyperglycemia action plan: Instructed to call office if blood sugar above 350 or below 65 consecutively. Reviewed with patient the long term care social worker effects of Diabetes Mellitus on the body [...] 06/20/2025 Other fu cardiology a s scheduled 08/01/2025 Other on Mounjaro, do wn 5 lbs since last visit Plan Of Treatment Pending Test Test Name Order Date CMP (COMPLETE METABOLIC PANEL) 3 HEMOGLOBIN A1C (GLYCO) 11/15/2023 IRON, TOTAL 11/15/2023 LIPID PANEL (CHOL/TRIG/HDL/LDL) 11/15/20 23 CBC WITH DIFF 11/15/2023 VITAMIN D, 25 LEVEL (TOTAL) 11/15/2023 Insulin Level 11/15/2023 CBC W/AUTO DIFF 02/06/2025 CBC W/AUTO DIFF 08/16/2025 Covid-19 PCR (CVDTBH) 07/11/2024 GLYCOHEMOGLOBIN A1C 01/14/2025 IRON 08/16/2025 THYROID PANEL (T4/TSH/FREE T3) 3 Next Appt Details Provider Name:Monique rutledge, 10/22/2025 04:15:00 PM, [address] [place], [address], Insurance Providers Payer Name Payer Address Payer Phone Subscriber Number Group Number Insured Name Patient Relationship to Insured Coverage Start Date Coverage End Date [employer] P[employer] LOCAL PLAN [address] [place] [address] [id number] Lonnie Paul Spouse - patient is the spouse of the insured 3 Medications Administered Medication Instructions Date of Administration Dosage Notes Triamcinolone 40 mg/ml 07/22/2025 80 mg Medical (General) History Medical History History ICD Code Vitamin D deficiency E55.9 Hypertriglyceridemia E78.1 Hypothyroid E03.9 Diabetes type 2, controlled E11.9 GERD (gastroesophageal reflux disease) K 21.9 Anxiety F41.9 Surgical History Surgery Date(Month/Year) CHOLECYSTECTOMY Steroid injection in feet Lt foot modified Kidner procedure w/ pos terior splint 05/16/2024 Rt foot kidner procedure 09/20 Rt shoulder scope with partial removal o f bone left foot kidner procedure Hospitalization History Reason Date(Month/Year) Gallbladder
--- OUTSIDE RECORDS SUMMARY | 2025-08-27 09:59 | XMS_ITS | Patient Health Record ---
Author Organization [facility] Address [address] [place] [address] Care Team Providers Care Nuclear Medicine Pet Ct Technologist Name Role Phone Monique Razo CNP Primary Care Provider Unavail able EldaRafy alberts Unavailable [phone] Allergies Allergen (clinical drug ingredient) Drug/Non Drug [...] Patient is a nonsmoker. No alcohol use. Patient is a nonsmoker. No alcohol use. Encounters Encounter Location Date [facility] [address] [address] 06/14/2025 Rafy Burdick Posterior tibial tendon dysfunction, right M76.821 [facility] [address] [address] 08/19/2025 Rafy Burdick Posterior tibial tendon dysfunction, [...] to aggravation of symptoms. MRI performed at [facility] due to lack of improvement. Patient is [...] over the next 6 to 8 weeks. 08/19/2025 Posterior tibial tendon dysfunction, right (ICD-10 - M76.821) I had a lengthy discussion with Kyung today who again relates she is pursuing [employer] disability. I related to her after undergoing [...] to follow with me. Plan Of Treatment Next Appt Details Provider Name:Rafy mitchell, 11/18/2025 09:00:00 AM, [address] [facility] [address], [place], [address], Insurance Providers Payer Name Payer Address Payer Phone Subscriber Number Group Number Insured Name Patient Relationship to Insured Coverage Start Date Coverage End Date [facility] [address] [place] [address] [id number] PolloLonnie palacios Spouse - patient is the spouse of [...]
--- OUTSIDE RECORDS SUMMARY | 2025-08-27 09:59 | XMS_ITS | Patient Health Record ---
Author Organization [facility] Address [address] [place] [address] Care Team Providers Care Manager Welding Name Role Phone Gaurav Snyder Unavailable [phone] shadeGloria Frazier Unavailable Allergies Allergen (clinical drug ingredient) Drug/Non Drug Allergy documented on EMR Reaction Allergy Type Onset Date Status SULFA (uncoded) hives Allergy Acti ve Results Component Value Reference Range Notes CBC with diff, BMP, EKG Reviewed date:12/04/2024 02:43:58 PM Interpretation: Performing Lab: Notes/Report: Surgery Scheduling Reviewed date:12/04/2024 02:43:39 PM Interpretation: Performing Lab: Notes/Report: Social Sec number: [id number] Primary Insurance Company: [employer] Surgeon/Assist: [place] Surgery Location: [facility] Surgery Date & Time: 11/05/24 Surgery End Time: ONE HOUR Procedure: RIGHT SHOULDER ARTHR OSCOPIC DISTAL CLAVICLE EXCISION, POSSIBLE OPEN, Diagnosis: RIGHT AC JOINT ARTHRITIS Admission Type: OUTPATIENT Anesthesia Type/CPNB: GENERAL Post-op Appointment Date: 1 WEEK Latex Allergy NO Lab Location: [facility] Fabricator Foam Rubber: LIBERTY Hemoglobin Reviewed date:12/04/2024 02:43:30 PM Interpretation: [...] Jose Martin 10/15/2024 11:33:47 AM >[place] [address] [place] [address] Diagnosis 1 Arthritis of right a cromioclavicular joint (M19.011) Referral Organization [facility] Referring Provider First Name Gaurav Referring Provider Last Name Lillian Referring Provider Speciality Orthopedic Surgery Referred Organization [facility] Referred Address [address] [facility],[address], General Notes Vilma Meléndez 024 11:19:13 AM >NEED SX CODE PLEASEMario Chad 10/15/2024 11:33:47 AM >C[place] [address] [place] [address], Vilma Meléndez 10/18/2024 11:53:48 AM >APPROVED PER [employer] AUTH #[id number] VALID 10/18/2024-01/18/2025 COPY IN CHART MA NOTIFIED REF FAXED TO [facility] Priority Routine Medications Medication SIG (Take, Route, [...] Problem Status W/U Status Risk Notes Problem [id number] Primary osteoarthritis of right shoulder (M19.011) Active confirmed Problem 063098248 Encounter for other orthopedic aftercare (Z47.89) Active confirmed Vital Signs Height 5'1 in 03/18/2025 Weight 325 lbs 03/18/2025 BMI 61.4 03/18/2025 Encounters Encounter Location Date Provider Diagnosis [facility] [address] [facility] [place] [address] [place] [address] 09/17/2024 Gaurav Snyder Primary osteoarthrit is of right shoulder M19.011 [facility] [facility] [address] [facility] [place] [address] [place] [address] 10/15/2024 Gaurav Snyder Arthritis of right acromioclavicular joint M19.011 [facility] [address] [place] [address] 11/05/2024 Gaurav Snyder Arthritis of right acromioclavicular joint M19.011 [facility] [address] [facility] [place] [address] [place] [address] 11/12/2024 Gaurav Snyder Encounter for other orthopedic aftercare Z47.89 [facility] [facility] [address] [facility] [place] [address] [place] [address] 12/17/2024 [facility] Arthritis of right acromioclavicular joint M19.011 [facility] [facility] [address] [facility] [place] [address] [place] [address] 01/28/2025 [facility] Encounter for other orthopedic aftercare Z47.89 [facility] [facility] [address] [facility] [place] [address] [place] [address] 02/11/2025 Gloria [facility] Primary osteoarthritis of right shoulder M19.011 [facility] [facility] [address] [facility] [place] [address] [place] [address] 03/18/2025 [facility] Arthritis of right acromioclavicular joint M19.011 [facility] [place] [address] 02/04/2025 [facility] Assessments Encounter Date Diagnosis (ICD Code) Assessment Notes Treatment Notes Treatment Clinical Notes Section Notes 09/17/2024 Primary osteoarthritis of right shoulder (ICD-10 [...] months status post right distal clavicle excision 09/17/2024 Other For her right A C [...] with physical therapy. She does work at [employer] and has to lift sometimes 50 pounds, [...] She states she did get fired from [employer] so is currently unemployed. We will see her back in 6 weeks for reevaluation. 02/11/2025 Other Today we discus sed risk/benefits of subacromial corticosteroid injection. Patient's A1c is 6.6. Patient wished to proceed and I did provide this for her today. We will see her back at her regularly scheduled follow-up appointment. 03/18/2025 Other Patient is marixa wall well after subacromial injection. We discussed activity [...] Insured Coverage Start Date Coverage End Date [facility] [address] [place] [address] [id number] DELORES ROCHE Spouse - patient is the [...]
--- OUTSIDE RECORDS SUMMARY | 2025-08-27 09:59 | XMS_ITS | Clinical Summary ---
Author Organization [facility] Address [address] [place] [address] Care Team Providers Care Pleating Machine Operator Name Role Phone Unavailable Primary Care Provider Unavailabl e Allergies Active Allergy Reactions Criticality Noted Date Comments Sulfa (Sulfonamide Antibiotics) Hives,Rash Low 12/2023 Medications DEXCOM G7 PERSONAL DEVELOPMENT COACH See administration instructions. 4 Active escitalopram (Lexapro) [...] 2010 Cervical Cancer Screening 2018 HPV/Cotest 2018 Hepatitis B Vaccines (3 of 3 - 3-dose series) 10/11/2024 08/16/2024, 07/19/2002 COVID-19 Vaccine ( season) 2025 Influenza Vaccine (#1) 2025 Depression Screening 11/26/2025 [...] patient's age to complete this topic Insurance [facility]
--- OUTSIDE RECORDS SUMMARY | 2025-08-27 09:59 | XMS_ITS | Encounter Summary ---
Author Organization [facility] Address [address] [place] [address] Care Team Providers Care Patient Resource Coordinator Name Role Phone Monique Razo MD Unavailable [phone] Unallocated, Noms Ousmane LONG Primary Care Provi anna Monique Razo MD Unavailable [phone] Erich Garcia MD Primary Care Provider [phone] Jaime Woods DO Unavailable [phone] Encounter Details Date Type Department Care Team (Late st Contact Info) Description 05/05/2023 Abstract [facility] 112 [facility] 120 [place] [phone] Pato Koehler, DPM 3006 [facility] 5 [place] [address] Social History Tobacco Use Types [...] on filedocumented in this encounter Care Teams Patient Resource Coordinator Relationship Specialty Start Date End Date Unallocated, Noms ProviderMD [address] [facility] [place] [address] PCP - General Family Medicine 03/29/24 07/23/24 Erich Garcia MD [address] [place] [phone] PCP - General Family Medicine 07/24/24 Monique Razo MD [address] [place] [address] Referring Physician Family Medicine 03/29/24 Monique Razo MD [address] [place] [address] Referring Physician Family Medicine 07/24/24 Jaime Woods DO [address] [place] [address] Otolaryngology 07/24/24 documented as of this encounter
--- OUTSIDE RECORDS SUMMARY | 2025-08-27 09:59 | XMS_ITS | Encounter Summary ---
Author Organization [facility] Address [address] [place] [address] Care Team Providers Care Jar Capper Name Role Phone Monique Razo MD Unavailable [phone] Monique Razo MD Unavailable [phone] Erich Garcia MD Primary Care Provider [phone] Jaime Woods DO Unavailable [phone] Encounter Details Date Type Department Care Team (Late st Contact Info) Description 09/13/2024 Orders Only [facility] [address] [place] [address] Pato Koehler, DPM [address] [address] Social History Tobacco Use Types [...] (09/06/2024 11:25 AM EDT) Other us Pato Koehler DPM LAB PATHOLOGY ORDERABLES Fi nal Result documented in this encounter Visit Diagnoses Not on filedocumented in this encounter Care Teams Jar Capper Relationship Specialty Start Date End Date Erich Garcia MD [address] [place] [phone] PCP - General Family Medicine 07/24/24 Monique Razo MD [address] [place] [address] [phone] Referring Physician Family Medicine 03/29/24 Monique Razo MD [address] [place] [address] Referring Physician Family Medicine 07/24/24 Jaime Woods DO [address] [place] [address] Otolaryngology 07/24/24 documented as of this encounter
--- OUTSIDE RECORDS SUMMARY | 2025-08-27 09:59 | XMS_ITS | Encounter Summary ---
Author Organization [facility] Address [address] [place] [address] Care Team Providers Care Site Supervisor Name Role Phone Monique Razo MD Unavailable [phone] Monique Razo MD Unavailable [phone] Erich Garcia MD Primary Care Provider + Jaime Woods DO Unavailable [phone] Encounter Details Date Type Department Care Team (Late st Contact Info) Description 09/05/2024 Abstract [facility] 3[address] [place] [address] Pato Koehler DPM [address] [address] Social History Tobacco Use Types Packs/Day Years [...] on filedocumented in this encounter Care Teams Site Supervisor Relationship Specialty Start Date End Date Erich Garcia MD [address] [place] [address] PCP - General Family Medicine 07/24/24 Monique Razo MD [address] [place] [address] [phone] Referring Physician Family Medicine 03/29/24 Monique Razo MD [address] [place] [address] Referring Physician Family Medicine 07/24/24 Jaime Woods DO [address] [place] [address] Otolaryngology 07/24/24 documented as of this encounter
--- OUTSIDE RECORDS SUMMARY | 2025-08-27 09:59 | XMS_ITS | Encounter Summary ---
Author Organization [facility] Address [address] [place] [address] Care Team Providers Care Support Assistant Name Role Phone Monique Razo MD Unavailable [phone] Unallocated, Noms Provider Primary Care Provi anna Monique Razo MD Unavailable [phone] Erich Garcia MD Primary Care Provider [phone] Jaime Woods DO Unavailable [phone] Encounter Details Date Type Department Care Team (Late st Contact Info) Description 05/16/2024 External Result Encounter [facility] External Department Unsolicited Pato Koehler, DPM [address] [address] Accessory navicular bone of foot [...] 05/16/24 1520 Narrative 05/16/2024 3:22 PM EDT [facility] Main [address] [address] XRay Report Signed Patient: Kyung Paul MR#: [id number] : 1990 Acct:[id number] Age/Sex: 33 / F ADM Date: 05/16/24 Loc: [place] Room: Type: [facility] Attending Dr: Pato Koehler DPM [...] 2V Procedure Note Radiology, Radiologist, - 05/16/2024 [facility] Main [address] [address] XRay Report Signed Patient: Kyung Paul LMR#: [id number] : 1990Acct:[id number] Age/Sex: 33 / FADM Date: 05/16/24 Loc: [place] Room:Type: 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, not elsewhere classified documented in this encounter Care Teams Support Assistant Relationship Specialty Start Date End Date Unallocated, Noms MD Ousmane [address] [place] [address] PCP - General Family Medicine 03/29/24 07/23/24 Erich Garcia MD [address] [place] [phone] PCP - General Family Medicine 07/24/24 Monique Razo MD [address] [place] [address] Referring Physician Family Medicine 03/29/24 [place] [address] [place] [address] Referring Physician Family Medicine 07/24/24 Jaime Woods DO [address] [place] [address] Otolaryngology 07/24/24 documented as of this encounter
--- OUTSIDE RECORDS SUMMARY | 2025-08-27 09:59 | XMS_ITS | Encounter Summary ---
Author Organization [facility] Address [address] [place] [address] Care Team Providers Care Air Conditioning Unit Assembler Name Role Phone Monique Razo MD Unavailable [phone] Unallocated, Keily Romeo MD Primary Care Provi anna Monique Razo MD Unavailable [phone] Erich Garcia MD Primary Care Provider [phone] Jaime Woods DO Unavailable [phone] Encounter Details Date Type Department Care Team (Late st Contact Info) Description 04/20/2024 Abstract [facility] 112 [facility] 120 [place] [phone] Pato Koehler, DPM 3006 [facility] 5 [place] [address] Social History Tobacco Use Types [...] on filedocumented in this encounter Care Teams Air Conditioning Unit Assembler Relationship Specialty Start Date End Date Unallocated, Noms ProviderMD [address] [place] [address] PCP - General Family Medicine 03/29/24 07/23/24 Erich Garcia MD [address] [place] [phone] PCP - General Family Medicine 07/24/24 Monique Razo MD [address] [place] [phone] Referring Physician Family Medicine 03/29/24 Monique Razo MD [address] [place] [address] Referring Physician Family Medicine 07/24/24 Jaime Woods DO [address] [place] [address] Otolaryngology 07/24/24 documented as of this encounter
--- OUTSIDE RECORDS SUMMARY | 2025-08-27 09:59 | XMS_ITS | Encounter Summary ---
Author Organization [facility] Address [address] [place] [address] Care Team Providers Care Superintendent Landfill Operations Name Role Phone Monique Razo MD Unavailable [phone] Monique Razo MD Unavailable [phone] Erich Garcia MD Primary Care Provider [phone] Jaime Woods DO Unavailable [phone] Encounter Details Date Type Department Care Team (Late st Contact Info) Description 10/28/2024 Telephone [facility] 112 [facility] 120 [place] [address] Pato Koehler DPM 3006 [facility] 5 [place] [address] Social History Tobacco Use Types Packs/Day Years [...] on filedocumented in this encounter Care Teams Superintendent Landfill Operations Relationship Specialty Start Date End Date Erich Garcia MD [address] [place] [phone] PCP - General Family Medicine 07/24/24 Monique Razo MD [address] [place] [address] Referring Physician Family Medicine 03/29/24 Monique Razo MD [address] [place] [address] Referring Physician Family Medicine 07/24/24 Jaime Woods DO [address] [place] [address] Otolaryngology 07/24/24 documented as of this encounter
--- OUTSIDE RECORDS SUMMARY | 2025-08-27 09:59 | XMS_ITS | Clinical Summary ---
Author Organization [facility] Address [address] [facility] [place] [address] Care Team Providers Care Manager Online Name Role Phone Monique Razo MD Unavailable [phone] Monique Razo MD Unavailable [phone] Erich Garcia MD Primary Care Provider [phone] Jaime Woods DO Unavailable [phone] Allergies Active Allergy Reactions Criticality Noted Date [...] 07/21/2024 Anxiety 07/21/2024 Diabetes mellitus without complication Diabetes 07/21/2024 Vitamin D deficiency 07/21/2024 Encounters Date Type Department Care Team Description 07/18/2025 Travel from Last 3 Months Immunizations Immunization [...] Plan of Treatment Not on file Insurance BS BCBS Care Teams Manager Online Relationship Specialty Start Date End Date Erich Garcia MD [address] [place] [phone] PCP - General Family Medicine 07/24/24 Monique Razo MD [address] [place] [address] Referring Physician Family Medicine 03/29/24 Monique Razo MD [address] [place] [address] Referring Physician Family Medicine 07/24/24 Jaime Woods DO [address] [place] [address] Otolaryngology 07/24/24
--- OUTSIDE RECORDS SUMMARY | 2025-08-27 09:59 | XMS_ITS | Encounter Summary ---
Author Organization [facility] Address [address] [place] [address] Care Team Providers Care Outpatient Psychiatrist Name Role Phone Monique Razo MD Unavailable [phone] Unallocated, Keily Romeo MD Primary Care Provi anna Monique Razo MD Unavailable [phone] Erich Garcia MD Primary Care Provider [phone] Jaime Woods DO Unavailable [phone] Encounter Details Date Type Department Care Team (Late st Contact Info) Description 05/16/2024 Abstract [facility] 3006 [place] [phone] Pato Koehler DPM [address] [address] Social History Tobacco Use Types [...] on filedocumented in this encounter Care Teams Outpatient Psychiatrist Relationship Specialty Start Date End Date Unallocated, Noms [place] [address] PCP - General Family Medicine 03/29/24 07/23/24 Erich Garcia MD [address] [place] [phone] PCP - General Family Medicine 07/24/24 Monique Razo MD [address] [place] [address] Referring Physician Family Medicine 03/29/24 Monique Razo MD [address] [place] [address] Referring Physician Family Medicine 07/24/24 Jaime Woods DO [address] [place] [address] Otolaryngology 07/24/24 documented as of this encounter
[2025-08-27 10:51] LABS: Hematocrit 39.6 % (36.0-48.0); Hemoglobin 11.9 g/dL (12.0-16.0); Immature Granulocytes Abs Auto 0.05 10^3/uL (0.00-0.03); Immature Granulocytes Pct Auto 0.5 % (0.0-0.5); Lymphocytes Absolute Auto 2.2 10^3/uL (1.2-3.8); Mean Corpuscular HGB Conc 30.1 g/dL (29.9-35.2); Mean Corpuscular Hemoglobin 24.7 pg (26.7-34.0); Mean Corpuscular Volume 82.2 fL (81.0-99.0); Platelet Count 393 10^3/uL (150-450); Red Blood Count 4.82 10^6/uL (4.20-5.40); White Blood Count 9.9 10^3/uL (4.0-11.0)
[2025-08-27 11:07] LABS: Iron 34.0 ug/dL (50.0-170.0)
== END 2025-08-27 09:51 | disposition home or self-care (01) ==
LOC: LAB 09:51
PROVIDERS: PCP Nurse Practitioner Family; Visit Provider Nurse Practitioner Family
DX: E61.1 Iron deficiency (principal)
CPT/HCPCS: 36415; 83540; 85025

== ENCOUNTER 2025-09-04 21:22 | Emergency (ER) | payer BC, SELFPAY ==
[2025-09-04 21:32] VITALS: BP 111/64; PULSE 74; TEMP 36.8; O2SAT 98; BMI 56.5
--- OUTSIDE RECORDS SUMMARY | 2025-09-04 21:34 | XMS_ITS | CCD ---
Author Organization [facility] Team Providers Care Helic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 Name Role Phone Monique Dudley Unavailable MONIQUE [...] Provider LORI Emmanuel Primary Care Provider [phone] MONIQUE EMMANUEL Primary Care Physician Pato Avelar [...] Primary Care Provider Jaime Camargo DO Unavailable [phone] Valentino, DPMadi Johnson Attending Unavailabl e Brown, [...] Unavailab le ESPERANZASEAN Referring Unavailab le Lien FITNESS TEACHER-C, Monique Alicia Primary Care Provider [phone] Marek Dennis DO Emergency Provider Neo Mclaughlin MD Admit Provider Neo Mclaughlin MD Attending Provider Maryanne Unger RN Other Provider Unavailable Balaji Cohen MD Other Provider Kvng Carcamo MD Other Provider [phone] Inge Adler MD Attending Provider [phone] Inge Adler MD Other Provider Merry Nieves APRN Other Provider [phone] Mitch Galaviz MD Other Provider Lien, Monique Alicia Primary Care Unavailable Neo Mclaughlin Admitting Unavailable Mischlchristelle, Maryanne Consulting Unavailable Mitch Galaviz Attending Unavailab le Maryanne Unger Consulting Unavailable Balaji Cohen Consulting Unavailable Kvng Carcamo Consulting Unavai Inge Chapman Consulting Unavailable Merry Nieves Consulting Unavailable Allergies Allergy Classification Reported Allergen(s) Allergy Type Date of Onset Reaction(s) Facility (1 source) Egg protein Drug allergy CRE [employer] [facility] mgMEDIA Other (1 source) Sulf-10 Drug allergy [facility] mgMEDIA Other (1 source) Sulfonamides (Antibiotic) Drug allergy (disorder) 3 [facility] Rep[facility] (20 sources) Sulfonamides (Antibiotic); Translations: [SULFA (SULFONAMIDE ANTIBIOTICS)] [facility] to substance [facility] ([facility] Egg Derived; Translations: [Egg Derived] Allergy to substance 4 [facility] (5 sources) Sulfonamides (Antibiotic); Translations: [sulfa drugs] Drug allergy [facility] (20 sources) Sulfonamides (Antibiotic) Drug Allergy 4 [facility] Medications Current Medications Medication Drug Class(es) Dates Sig (Normalized) Sig (Original) acetaminophen 325 mg / HYDROcodone bitartrate 5 mg oral tablet (2 sources) Opioid Agonist Start: 08-30-2024 End: 09-04-2024 take 1 tablet by mouth every eight hours as needed for pain HYDROcodone-aceta minophen ([place]) 5-325 MG tablet Indications: Pain Take 1 [...] eduin as directed. 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 G7 ROLL ICER misc (20 sources) Start: 09-20-2024 DEXCOM G7 [...] day at the same time 03/12/2024 Active [place] Sling (3 sources) Start: 02-27-2024 [place] Slin g Active 0 .Route February 27, 2024 12:00am As directed [place] [facility]ling unit (4 sources) Start: 02-27-2024 [place] [facility] unit Active 0 .Route February [...] protocolon 06-16-2025 CT angio chest PE protocol [facility] Main [address] [address] [address] Scan Report Signed Patient: Noel Paul MR#: [id number] : 1990 Acct:[id number] Age/Sex: 34 / F ADM Date: 06/15/25 Loc: Room: [address] [place] [address] Type: ADM INOo Attending Dr: Mitch Galaviz [...] Prince M.D. 06/16/2025 12:11 PM Dictation Location: [place] [address] Transcribed By: [facility] 06/16/25 1211 Dictated By: Joshua Prince MD 06/16/25 1208 Signed By: 06/16/25 1211 Normal [facility] ECG 12 lead ECGon 06-16-2025 ECG 12 lead ECG [facility] [place] [address] Electrocardiograph Report Signed Patient: Noel Paul MR#: [id number] : 1990 Acct:[id number] Age/Sex: 34 / F ADM Date: 06/15/25 Loc: Room: [address] [place] [address] Type: ADM INOo Attending Dr: Mitch Galaviz [...] rhythm Normal ECG Confirmed by Inge Adler ([id number]) on 06/16/2025 10:58:02 AM Referred By: Electronically Signed By: Inge Adler Transcribed By: MUS Signed By Inge Adler MD 5 1058 Normal [facility] Glucose Poct Glucometerson 0 06-16-2025 Glucose [Mass/Vol] 106 mg/dL Normal [facility] Comment on above: Result Comment: [place] Glucose Reference Range is dependent on time and content of last meal. Glucose of more than 200 mg/dL in a nonstressed, ambulatory subject supports the diagnosis of Diabetes Mellitus. PERFORMED BY: [place] [id number] PATHOLOGIST VOCATIONAL TRAINING DIRECTOR CHANEL ROMERO M.D. Performed By: #### G LULS #### Point of Care testing , Commemt1 Glu2: Cleaned Meter Normal [facility] Comment on above: Result Comment: PERF ORMED BY: [facility] [address] [place] [address] PATHOLOGIST VOCATIONAL TRAINING DIRECTOR CHANEL ROMERO M.D. Performed By: #### G LULS #### Point of Care testing , Glucose [Mass/Vol] 124 mg/dL Normal [facility] Comment on above: Result Comment: Malo om Glucose Reference Range is dependent on time and content of last meal. Glucose of more than 200 mg/dL in a nonstressed, ambulatory subject supports the diagnosis of Diabetes Mellitus. Performed By: #### G LULS #### Point of Care testing , Commemt1 Glu2: Cleaned Meter Normal [facility] Comment on above: Result Comment: PERF ORMED BY: [place] [address] PATHOLOGIST VOCATIONAL TRAINING DIRECTOR CHANEL ROMERO M.D. Performed By: #### G LULS #### Point of Care testing , Glucose [Mass/Vol] 125 mg/dL Normal [facility] Comment on above: Result Comment: [facility] Glucose Reference Range is dependent on time and content of last meal. Glucose of more than 200 mg/dL in a nonstressed, ambulatory subject supports the diagnosis of Diabetes Mellitus. Performed By: #### G LULS #### Point of Care testing , Troponin I High Sensitivityo n 06-16-2025 Troponin I High Sensitivity 3 Normal 0-15 [facility] Comment on above: Result Comment: The Troponin units of report have been changed to meet the Chest Pain Accreditation requirement, element EC5.M1l2. Troponin units are changed from pg/ml to ng/L. Also, the decimal is removed and results are in whole numbers. PERFORMED BY: [place] [address] PATHOLOGIST VOCATIONAL TRAINING DIRECTOR CHANEL ROMERO M.D. Performed By: #### G LULS #### Point of Care testing , A1C with Estimated Average [facility] 06-15-2025 Glucose [Mass/Vol] 137 mg/dL Normal [facility] Comment on above: Result Comment: PERF ORMED BY: [place] [address] PATHOLOGIST VOCATIONAL TRAINING DIRECTOR CHANEL ROMERO M.D. Performed By: #### H S TROP #### [address] HbA1c (Bld) [Mass fraction] 6.4 % High 4.3-5.6 [facility] Comment on above: Result Comment: Incr eased risk for diabetes: 5.7 - 6.4 diabetes: >6.4 glycemic control for adults with diabetes: <7.0 Performed By: #### H S TROP #### [facility] [address] Basic Metabolic Panelon 05-28 Anion gap [Moles/Vol] 10.1 mmol/L Normal 6.0-15.0 [facility] e [facility] Comment on above: Performed By: #### H S TROP #### [facility] [address] [place] [address] [place] Calcium [Mass/Vol] 8.7 mg/dL Normal 8.6-10.3 [facility] Comment on above: Performed By: #### H S TROP #### [facility] [address] [place] [address] [place] Chloride [Moles/Vol] 103 mmol/L Normal 98-107 [facility] Comment on above: Performed By: #### H S TROP #### [address] CO2 [Moles/Vol] 30.9 mmol/L Normal 21.0-31.0 [facility] Comment on above: Performed By: #### H S TROP #### [place] [address] [place] Creatinine [Mass/Vol] 0.86 mg/dL Normal 0.60-1.20 [facility] Comment on above: Performed By: #### H S TROP #### [facility] [address] [place] [address] [place] Creatinine Clr Calc Pharmacy 129.66 Normal [facility] Comment on above: Performed By: #### H S TROP #### [place] [address] [place] GFR/1.73 sq M.predicted MDRD (S/P/Bld) [Vol rate/Area] mL/min/{1.73_m2} Normal [facility] Comment on above: Performed By: #### H S TROP #### [place] [address] [place] Glucose [Mass/Vol] 123 mg/dL High 70-100 [facility] Comment on above: Result Comment: [place] om Glucose Reference Range is dependent on time and content of last meal. Glucose of more than 200 mg/dL in a nonstressed, ambulatory subject supports the diagnosis of Diabetes Mellitus. ADA recommended reference range Performed By: #### H S TROP #### [address] Potassium [Moles/Vol] 4.0 mmol/L Normal 3.5-5.1 [facility] Comment on above: Performed By: #### H S TROP #### [address] Sodium [Moles/Vol] 140 mmol/L Normal 136-145 [facility] Comment on above: Performed By: #### H S TROP #### [address] Urea nitrogen [Mass/Vol] 17 mg/dL Normal 7-25 [facility] Comment on above: Performed By: #### H S TROP #### [address] Complete Blood Count Auto Di ffon 06-15-2025 Basophils (Bld) [#/Vol] 0.1 10*3/uL Normal 0.0-0.2 [facility] Comment on above: Result Comment: PERF ORMED BY: [place] [address] PATHOLOGIST VOCATIONAL TRAINING DIRECTOR CHANEL ROMERO M.D. Performed By: #### H S TROP #### [place] [address] [place] Basophils/100 WBC (Bld) 0.7 % Normal . [facility] Comment on above: Performed By: #### H S TROP #### [place] [address] [place] Eosinophils (Bld) [#/Vol] 0.3 10*3/uL Normal 0.0-0.45 [facility] Comment on above: Performed By: #### H S TROP #### [place] [address] [place] Eosinophils/100 WBC (Bld) 2.8 % Normal . [facility] Comment on above: Performed By: #### H S TROP #### [address] Erythrocyte distribution width (RBC) [Ratio] 17.1 % High 11.9-15.3 [facility] Comment on above: Performed By: #### H S TROP #### [address] Hematocrit (Bld) [Volume fraction] 36.5 % Normal 34.0-46.4 [facility] Comment on above: Performed By: #### H S TROP #### [address] Hemoglobin (Bld) [Mass/Vol] 11.6 g/dL Low 11.8-15.4 [facility] Comment on above: Performed By: #### H S TROP #### [address] Lymphocytes (Bld) [#/Vol] 1.9 10*3/uL Normal 1.00-4.8 [facility] Comment on above: Performed By: #### H S TROP #### [address] Lymphocytes/100 WBC (Bld) 16.9 % Normal . [facility] Comment on above: Performed By: #### H S TROP #### [address] MCH (RBC) [Entitic mass] 25.0 pg Normal 24.7-34.3 [facility] Comment on above: Performed By: #### H S TROP #### [address] MCV (RBC) [Entitic vol] 78.4 fL Low 80-100 [facility] Comment on above: Performed By: #### H S TROP #### [address] Mean Corpuscular HGB Conc 31.9 g/dL Low 32.0-35.0 [facility] Comment on above: Performed By: #### H S TROP #### [place] [address] [place] Monocytes (Bld) [#/Vol] 0.6 10*3/uL Normal 0.0-0.8 [facility] Comment on above: Performed By: #### H S TROP #### [address] Monocytes/100 WBC (Bld) 5.6 % Normal . [facility] Comment on above: Performed By: #### H S TROP #### [address] Neutrophils (Bld) [#/Vol] 8.3 10*3/uL High 1.8-7.7 [facility] Comment on above: Performed By: #### H S TROP #### [place] [address] [place] Neutrophils/100 WBC (Bld) 74.0 % Normal . [facility] Comment on above: Performed By: #### H S TROP #### [address] NRBC% 0.1 /100{WBC} Normal 0-0.5 [facility] Comment on above: Performed By: #### H S TROP #### [address] Platelet mean volume (Bld) [Entitic vol] 7.4 fL Normal 6.3-10.7 [facility] Comment on above: Performed By: #### H S TROP #### [place] [address] [place] Platelets (Bld) [#/Vol] 349 10*3/uL Normal 150-450 [facility] Comment on above: Performed By: #### H S TROP #### [place] [address] [place] RBC (Bld) [#/Vol] 4.65 10*6/uL Normal 3.60-5.00 [facility] Comment on above: Performed By: #### H S TROP #### [facility] [address] WBC (Bld) [#/Vol] 11.2 10*3/uL Normal 3.8-11.6 [facility] Comment on above: Performed By: #### H S TROP #### [facility] [address] [place] [address] White Blood Count 11.2 [CFU]/mL Normal 3.8-11.6 [facility] Comment on above: Performed By: #### H S TROP #### [facility] [address] [place] [address] ECG 12 lead ECGon 06-15-2025 ECG 12 lead ECG [facility] [place] [address] Electrocardiograph Report Signed Patient: Noel Paul MR#: [id number] : 1990 Acct:[id number] Age/Sex: 34 / F ADM Date: 06/15/25 Loc: Room: [address] [place] [address] Type: ADM INOo Attending Dr: Mitch Galaviz [...] rhythm Normal ECG Confirmed by Inge Adler ([id number]) on 06/15/2025 7:22:48 PM Referred By: Electronically Signed By: Inge Adler Transcribed By: MUS Signed By Inge Adler MD 1921 Normal [facility] ECG 12 lead ECG [facility] [place] [address] Electrocardiograph Report Signed Patient: Noel Paul MR#: [id number] : 1990 Acct:[id number] Age/Sex: 34 / F ADM Date: 06/15/25 Loc: 3T Room: [address] [place] [address] Type: ADM INOo Attending Dr: Mitch Galaviz [...] rhythm Normal ECG Confirmed by Inge Adler ([id number]) on 06/15/2025 7:22:44 PM Referred By: Electronically Signed By: Inge Adler Transcribed By: MUS Signed By Inge Adler MD 1921 Normal [facility] echo transthoracicon E[facility] echo transthoracic [facility] [place] [address] Echocardiogram Signed Patient: Noel Paul MR#: [id number] : 1990 Acct:[id number] Age/Sex: 34 / F ADM Date: 06/15/25 Loc: 3T Room: [address] [place] [address] Type: ADM INOo Attending Dr: Mitch Galaviz MD Ordering Provider: Inge Adler MD Date of Service: 06/15/25 [facility] echo transthoracic: Chest pain Copies to: [...] 1243 Signed By: Inge Adler MD 06/15/25 6338 [facility] Glucose Poct Glucometerson 0 06-15-2025 Commemt1 Glu2: Cleaned Meter Normal [facility] Comment on above: Result Comment: PERF ORMED BY: [address] [place] [place] [address] PATHOLOGIST VOCATIONAL TRAINING DIRECTOR CHANEL ROMERO M.D. Performed By: #### G LULS #### Point of Care testing , Glucose [Mass/Vol] 111 mg/dL Normal [facility] Comment on above: Result Comment: [place] om Glucose Reference Range is dependent on time and content of last meal. Glucose of more than 200 mg/dL in a nonstressed, ambulatory subject supports the diagnosis of Diabetes Mellitus. Performed By: #### G LULS #### Point of Care testing , Glucose [Mass/Vol] 108 mg/dL Normal [facility] Comment on above: Result Comment: Mal[place] om Glucose Reference Range is dependent on time and content of last meal. Glucose of more than 200 mg/dL in a nonstressed, ambulatory subject supports the diagnosis of Diabetes Mellitus. PERFORMED BY: [address] [place] [address] PATHOLOGIST VOCATIONAL TRAINING DIRECTOR CHANEL ROMERO M.D. Performed By: #### G LULS #### Point of Care testing , Glucose [Mass/Vol] 74 mg/dL Normal [facility] Comment on above: Result Comment: [place] om Glucose Reference Range is dependent on time and content of last meal. Glucose of more than 200 mg/dL in a nonstressed, ambulatory subject supports the diagnosis of Diabetes Mellitus. PERFORMED BY: [address] [place] [address] PATHOLOGIST VOCATIONAL TRAINING DIRECTOR CHANEL ROMERO M.D. Performed By: #### G LULS #### Point of Care testing , Commemt1 Glu2: Cleaned Meter Normal [facility] Comment on above: Result Comment: PERF ORMED BY: [address] [place] [id number] PATHOLOGIST VOCATIONAL TRAINING DIRECTOR CHANEL ROMERO M.D. Performed By: #### G LULS #### Point of Care testing , Glucose [Mass/Vol] 88 mg/dL Normal [facility] Comment on above: Result Comment: [place] om Glucose Reference Range is dependent on time and content of last meal. Glucose of more than 200 mg/dL in a nonstressed, ambulatory subject supports the diagnosis of Diabetes Mellitus. Performed By: #### G LULS #### Point of Care testing , Commemt1 Glu2: Cleaned Meter Normal [facility] Comment on above: Result Comment: PERF ORMED BY: [place] [id number] PATHOLOGIST VOCATIONAL TRAINING DIRECTOR CHANEL ROMERO M.D. Performed By: #### G LULS #### Point of Care testing , Glucose [Mass/Vol] 79 mg/dL Normal [facility] Comment on above: Result Comment: [place] om Glucose Reference Range is dependent on time and content of last meal. Glucose of more than 200 mg/dL in a nonstressed, ambulatory subject supports the diagnosis of Diabetes Mellitus. Performed By: #### G LULS #### Point of Care testing , Glucose [Mass/Vol] 64 mg/dL Normal [facility] Comment on above: Result Comment: [place] om Glucose Reference Range is dependent on time and content of last meal. Glucose of more than 200 mg/dL in a nonstressed, ambulatory subject supports the diagnosis of Diabetes Mellitus. PERFORMED BY: [place] [id number] PATHOLOGIST VOCATIONAL TRAINING DIRECTOR CHANEL ROMERO M.D. Performed By: #### G LULS #### Point of Care testing , Glucose [Mass/Vol] 94 mg/dL Normal [facility] Comment on above: Result Comment: [place] om Glucose Reference Range is dependent on time and content of last meal. Glucose of more than 200 mg/dL in a nonstressed, ambulatory subject supports the diagnosis of Diabetes Mellitus. PERFORMED BY: [address] [place] [id number] PATHOLOGIST VOCATIONAL TRAINING DIRECTOR CHANEL ROMERO M.D. Performed By: #### G LULS #### Point of Care testing , Commemt1 Glu2: Cleaned Meter Normal [facility] Comment on above: Result Comment: PERF ORMED BY: [facility] [address] [place] [address] PATHOLOGIST VOCATIONAL TRAINING DIRECTOR CHANEL ROMERO M.D. Performed By: #### G LULS #### Point of Care testing , Glucose [Mass/Vol] 115 mg/dL Normal [facility] Comment on above: Result Comment: [place] om Glucose Reference Range is dependent on time and content of last meal. Glucose of more than 200 mg/dL in a nonstressed, ambulatory subject supports the diagnosis of Diabetes Mellitus. Performed By: #### G LULS #### Point of Care testing , Commemt1 Glu2: Cleaned Meter Normal [facility] Comment on above: Result Comment: PERF ORMED BY: [facility] [address] [place] [address] PATHOLOGIST VOCATIONAL TRAINING DIRECTOR CHANEL ROMERO M.D. Performed By: #### G LULS #### Point of Care testing , Glucose [Mass/Vol] 135 mg/dL Normal [facility] Comment on above: Result Comment: [place] om Glucose Reference Range is dependent on time and content of last meal. Glucose of more than 200 mg/dL in a nonstressed, ambulatory subject supports the diagnosis of Diabetes Mellitus. Performed By: #### G LULS #### Point of Care testing , Lipid Panelon 06-15-2025 Cholesterol [Mass/Vol] 158 mg/dL Normal 140-200 [facility] Comment on above: Result Comment: Chol less than 200 mg/dl low risk Chol 201-239 mg/dl borderline risk Chol 240 mg/dl and greater high risk Performed By: #### H S TROP #### [place] [address] [place] Cholesterol in HDL [Mass/Vol] 31 mg/dL Normal 23-92 [facility] Comment on above: Result Comment: HDL CHOL ATP-III CLASSIFICATION Cardiovascular Risk HDL > or equal to 60 mg/dL LOW HDL < 40 mg/dL HIGH Performed By: #### H S TROP #### [facility] [address] [place] [id number] [place] Cholesterol.total/Chol esterol in HDL [Mass ratio] 5.1 {ratio} Normal <5.0 [facility] Comment on above: Result Comment: PERF ORMED BY: [place] [address] PATHOLOGIST VOCATIONAL TRAINING DIRECTOR CHANEL ROMERO M.D. Performed By: #### H S TROP #### [address] LDL Cholesterol,Calculated 88 mg/dL Normal 0-100 [facility] Comment on above: Result Comment: LDL ATP III CLASSIFICATION LDL less than 100 mg/dL Optimal LDL 100-129 mg/dL Near or above optimal LDL 130-159 mg/dL Borderline high LDL 160-189 mg/dL High LDL greater than 189 mg/dL Very high Performed By: #### H S TROP #### [address] Triglyceride w/Reflex 197 mg/dL High 0-149 [facility] Comment on above: Result Comment: TRIG ATP III CLASSIFICATION TRIG less than 150 mg/dL Normal TRIG 150-199 mg/dL Borderline high TRIG 200-500 mg/dL High TRIG greater than 500 mg/dL Very high Standard traceable to the Center for Disease Conrtrol and Prevention (CDC) test method. Performed By: #### H S TROP #### [address] VLDL CHOLESTEROL 39 mg/dL Normal [facility] Comment on above: Performed By: #### H S TROP #### [address] Magnesiumon 06-15-2025 Magnesium [Mass/Vol] 1.8 mg/dL Low 1.9-2.7 [facility] Comment on above: Performed By: #### H S TROP #### [place] [address] [place] Troponin I High Sensitivityo n 06-15-2025 Troponin I High Sensitivity 3 Normal 0-15 [facility] Comment on above: Result Comment: The Troponin units of report have been changed to meet the Chest Pain Accreditation requirement, element EC5.M1l2. Troponin units are changed from pg/ml to ng/L. Also, the decimal is removed and results are in whole numbers. PERFORMED BY: [place] [address] PATHOLOGIST VOCATIONAL TRAINING DIRECTOR CHANEL ROMERO M.D. Performed By: #### H S TROP #### [address] Troponin I High Sensitivity 4 Normal 0-15 [facility] Comment on above: Result Comment: The Troponin units of report have been changed to meet the Chest Pain Accreditation requirement, element EC5.M1l2. Troponin units are changed from pg/ml to ng/L. Also, the decimal is removed and results are in whole numbers. PERFORMED BY: [place] [address] PATHOLOGIST VOCATIONAL TRAINING DIRECTOR CHANEL ROMERO M.D. Performed By: #### H S TROP #### [address] Troponin I High Sensitivity 3 Normal 0-15 [facility] Comment on above: Result Comment: The Troponin units of report have been changed to meet the Chest Pain Accreditation requirement, element EC5.M1l2. Troponin units are changed from pg/ml to ng/L. Also, the decimal is removed and results are in whole numbers. PERFORMED BY: [place] [address] PATHOLOGIST VOCATIONAL TRAINING DIRECTOR CHANEL ROMERO M.D. Performed By: #### G LULS #### Point of Care testing , Troponin I.cardiac [Mass/vol ume] in Serum or Plasma by Detection limit <= 0.01 ng/mLOrdered By: Marek Dennis on 06-15-2025 Troponin I.cardiac DL <= 0.01 ng/mL [Mass/Vol] 3 ng/L 0-15 [facility] Comment on above: The Troponin units o f report have been changed to meet the Chest Pain Accreditation requirement, element EC5.M1l2. Troponin units are changed from pg/ml to ng/L. Also, the decimal is removed and results are in whole numbers. BNP ser/plasOrdered By: Kolton Dennis on 06-14-2025 Natriuretic peptide B (Bld) [Mass/Vol] 20.0 pg/mL Normal 5-100 [facility] Comment on above: Result Comment: PERF ORMED BY: [facility] [address] [id number] PATHOLOGIST VOCATIONAL TRAINING DIRECTOR CHANEL ROMERO M.D. Performed By: #### G LULS #### Point of Care testing , Basic Metabolic Panelon 05-28 Creatinine Clr Calc Pharmacy 109.28 Normal [facility] Comment on above: Result Comment: PERF ORMED BY: [facility] [address] [place] [address] PATHOLOGIST VOCATIONAL TRAINING DIRECTOR CHANEL ROMERO M.D. Performed By: #### G LULS #### Point of Care testing , GFR/1.73 sq M.predicted MDRD (S/P/Bld) [Vol rate/Area] mL/min/{1.73_m2} Normal [facility] Comment on above: Performed By: #### G LULS #### Point of Care testing , Basophils [#/volume] in Bloo d by Automated countOrdered By: PROVIDER TEMP on 06-14-2025 Basophils (Bld) [#/Vol] 0.2 10*3/uL Normal 0.0-0.2 [facility] Comment on above: Result Comment: PERF ORMED BY: [facility] [address] [place] [address] PATHOLOGIST VOCATIONAL TRAINING DIRECTOR CHANEL ROMERO M.D. Performed By: #### G LULS #### Point of Care testing , Basophils/100 leukocytes in Blood by Automated countOrdered By: PROVIDER TEMP on 06-14-2025 Basophils/100 WBC (Bld) 1.4 % Normal . [facility] Comment on above: Performed By: #### G LULS #### Point of Care testing , Calcium [Mass/volume] in Ser um or PlasmaOrdered By: PROVIDER TEMP on 06-14-2025 Calcium [Mass/Vol] 9.4 mg/dL Normal 8.6-10.3 [facility] Comment on above: Performed By: #### G МАРИЯLS #### Point of Care testing , Carbon dioxide, total [Moles /volume] in Serum or PlasmaOrdered By: PROVIDER TEMP on 06-14-2025 CO2 [Moles/Vol] 27.2 mmol/L Normal 21.0-31.0 [facility] Comment on above: Performed By: #### G LULS #### Point of Care testing , Chloride [Moles/volume] in S nikkie or PlasmaOrdered By: PROVIDER TEMP on 06-14-2025 Chloride [Moles/Vol] 105 mmol/L Normal 98-107 [facility] Comment on above: Performed By: #### G LULS #### Point of Care testing , Complete Blood Count Auto Di ffon 06-14-2025 Mean Corpuscular HGB Conc 32.2 g/dL Normal 32.0-35.0 [facility] Comment on above: Performed By: #### G LULS #### Point of Care testing , Monocytes/100 WBC (Bld) 19.88 % Normal 0.00-20.00 [facility] Comment on above: Performed By: #### G LULS #### Point of Care testing , NRBC% 0.1 /100{WBC} Normal 0-0.5 [facility] Comment on above: Performed By: #### G LULS #### Point of Care testing , White Blood Count 12.4 [CFU]/mL High 3.8-11.6 [facility] Comment on above: Performed By: #### G LULS #### Point of Care testing , Creatine kinase [Enzymatic a ctivity/volume] in Serum or PlasmaOrdered By: PROVIDER TEMP on 06-14-2025 CK [Catalytic activity/Vol] 50 U/L Normal 30-223 [facility] Comment on above: Performed By: #### G LULS #### Point of Care testing , Creatinine [Mass/volume] in Serum or PlasmaOrdered By: PROVIDER TEMP on 06-14-2025 Creatinine [Mass/Vol] 0.99 mg/dL Normal 0.60-1.20 [facility] Comment on above: Performed By: #### G LULS #### Point of Care testing , D-Dimer High Sensitivityon 0 06-14-2025 D-Dimer High Sensitivity <200 Normal 0-243 [facility] Comment on above: Result [...] coagulation studies. Please contact the laboratory at [phone] for redraw instructions. PERFORMED BY: [place] [address] PATHOLOGIST VOCATIONAL TRAINING DIRECTOR CHANEL ROMERO M.D. Performed By: #### G LULS #### Point of Care testing , ECG 12 lead ECGon 06-14-2025 ECG 12 lead ECG [facility] [place] [address] Electrocardiograph Report Signed Patient: Noel Paul MR#: [id number] : 1990 Acct:[id number] Age/Sex: 34 / F ADM Date: 06/15/25 Loc: Room: [address] [place] [address] Type: ADM INOo Attending Dr: Neo Mclaughlin [...] By Marek Dennis DO 0300 Normal [facility] Eosinophils [#/volume] in Bl ood by Automated countOrdered By: PROVIDER TEMP on 06-14-2025 Eosinophils (Bld) [#/Vol] 0.3 10*3/uL Normal 0.0-0.45 [facility] Comment on above: Performed By: #### G LULS #### Point of Care testing , Eosinophils/100 leukocytes i n Blood by Automated countOrdered By: PROVIDER TEMP on 06-14-2025 Eosinophils/100 WBC (Bld) 2.8 % Normal . [facility] Comment on above: Performed By: #### G LULS #### Point of Care testing , Erythrocyte distribution wid th [Ratio] by Automated countOrdered By: PROVIDER TEMP on 06-14-2025 Erythrocyte distribution width (RBC) [Ratio] 16.5 % High 11.9-15.3 [facility] Comment on above: Performed By: #### G LULS #### Point of Care testing , Erythrocytes [#/volume] in B lood by Automated countOrdered By: PROVIDER TEMP on 06-14-2025 RBC (Bld) [#/Vol] 4.98 10*6/uL Normal 3.60-5.00 [facility] Comment on above: Performed By: #### G LULS #### Point of Care testing , Glucose [Mass/volume] in Ser um or PlasmaOrdered By: PROVIDER TEMP on 06-14-2025 Glucose [Mass/Vol] 143 mg/dL High 70-100 [facility] Comment on above: ADA recommended refe rence rangeRandom Glucose Reference Range is dependent on time and content of last meal. Glucose of more than 200 mg/dL in a nonstressed, ambulatory subject supports the diagnosis of Diabetes Mellitus. Result Comment: Malo om Glucose Reference Range is dependent on [...] (Bld) [Volume fraction] 38.6 % Normal 34.0-46.4 [facility] Comment on above: Performed By: #### G LULS #### Point of Care testing , Hemoglobin [Mass/volume] in BloodOrdered By: PROVIDER TEMP on 06-14-2025 Hemoglobin (Bld) [Mass/Vol] 12.4 g/dL Normal 11.8-15.4 [facility] Comment on above: Performed By: #### G LULS #### Point of Care testing , INR in Platelet poor plasma by Coagulation assayOrdered By: Marek Dennis on 06-14-2025 INR Coag (PPP) [Relative time] 1.0 {INR} Normal [facility] Comment on above: INR Therapeutic Rang [...] heart valves: 3 - 4.5 PERFORMED BY: [facility] [address] [place] [address] PATHOLOGIST VOCATIONAL TRAINING DIRECTOR CHANEL ROMERO M.D. Performed By: #### G LULS #### Point of Care testing , Leukocytes [#/volume] correc ramos for nucleated erythrocytes in Blood by Automated counOrdered By: PROVIDER TEMP on 06-14-2025 WBC corrected for nucl RBC Auto (Bld) [#/Vol] 12.4 10*3/uL High 3.8-11.6 [facility] Leukocytes [#/volume] in Blo od by Automated countOrdered By: PROVIDER TEMP on 06-14-2025 WBC (Bld) [#/Vol] 12.4 10*3/uL High 3.8-11.6 [facility] Comment on above: Performed By: #### G BARAK #### Point of Care testing , Lymphocytes [#/volume] in Bl ood by Automated countOrdered By: PROVIDER TEMP on 06-14-2025 Lymphocytes (Bld) [#/Vol] 2.0 10*3/uL Normal 1.00-4.8 [facility] Comment on above: Performed By: #### G BARAK #### Point of Care testing , Lymphocytes/100 leukocytes i n Blood by Automated countOrdered By: PROVIDER TEMP on 06-14-2025 Lymphocytes/100 WBC (Bld) 15.9 % Normal . [facility] Comment on above: Performed By: #### G МАРИЯLS #### Point of Care testing , MCH [Entitic mass] by Automa ramos countOrdered By: PROVIDER TEMP on 06-14-2025 MCH (RBC) [Entitic mass] 25.0 pg Normal 24.7-34.3 [facility] Comment on above: Performed By: #### G BARAK #### Point of Care testing , MCHC Auto (RBC) [Mass/Vol]Or dered By: PROVIDER TEMP on 06-14-2025 MCHC (RBC) [Mass/Vol] 32.2 g/dL 32.0-35.0 [facility] MCV [Entitic volume] by Auto mated countOrdered By: PROVIDER TEMP on 06-14-2025 MCV (RBC) [Entitic vol] 77.6 fL Low 80-100 [facility] Comment on above: Performed By: #### G МАРИЯLS #### Point of Care testing , Monocyte distribution width [Entitic volume] in Blood by AutomatedOrdered By: PROVIDER TEMP on 06-14-2025 Monocyte distribution width Auto (Bld) [Entitic vol] 19.88 % 0.00-20.00 [facility] Monocytes [#/volume] in Bloo d by Automated countOrdered By: PROVIDER TEMP on 06-14-2025 Monocytes (Bld) [#/Vol] 0.6 10*3/uL Normal 0.0-0.8 [facility] Comment on above: Performed By: #### G LULS #### Point of Care testing , Monocytes/100 leukocytes in Blood by Automated countOrdered By: PROVIDER TEMP on 06-14-2025 Monocytes/100 WBC (Bld) 5.2 % Normal . [facility] Comment on above: Performed By: #### G LULS #### Point of Care testing , Neutrophils [#/volume] in Bl ood by Automated countOrdered By: PROVIDER TEMP on 06-14-2025 Neutrophils (Bld) [#/Vol] 9.3 10*3/uL High 1.8-7.7 [facility] Comment on above: Performed By: #### G LULS #### Point of Care testing , Neutrophils/100 leukocytes i n Blood by Automated countOrdered By: PROVIDER TEMP on 06-14-2025 Neutrophils/100 WBC (Bld) 74.7 % Normal . [facility] Comment on above: Performed By: #### G LULS #### Point of Care testing , No Panel InformationOrdered By: PROVIDER TEMP on 06-14-2025 Estimated GFR (CKD-EPI) > 60.0 mL/Min [facility] Creatinine Clearance (Chem 109.28 [facility] Nucleated erythrocytes [Pres ence] in Blood by Automated countOrdered By: PROVIDER TEMP on 06-14-2025 Nucleated RBC Auto Ql (Bld) 0.1 /100{WBC} 0-0.5 [facility] Platelet mean volume [Entiti c volume] in Blood by Automated countOrdered By: PROVIDER TEMP on 06-14-2025 Platelet mean volume (Bld) [Entitic vol] 7.5 fL Normal 6.3-10.7 [facility] Comment on above: Performed By: #### G LULS #### Point of Care testing , Platelets [#/volume] in Bloo d by Automated countOrdered By: PROVIDER TEMP on 06-14-2025 Platelets (Bld) [#/Vol] 361 10*3/uL Normal 150-450 [facility] Comment on above: Performed By: #### G LULS #### Point of Care testing , Potassium [Moles/volume] in Serum or PlasmaOrdered By: PROVIDER TEMP on 06-14-2025 Potassium [Moles/Vol] 3.7 mmol/L Normal 3.5-5.1 [facility] Comment on above: Performed By: #### G LULS #### Point of Care testing , Prothrombin time (PT)Ordered By: Marek Dennis on 06-14-2025 PT Coag (PPP) [Time] 11.5 s Normal 9.0-12.9 [facility] Comment on above: A hematocrit value g reater than 55% may lead to inaccurate results in coagulation testing. Patients having hematocrit values >55% require a special collection tube for coagulation studies. Please contact the laboratory at [phone] for redraw instructions. Result Comment: A he matocrit value greater than 55% may lead to inaccurate results in coagulation testing. Patients having hematocrit values >55% require a special collection tube for coagulation studies. Please contact the laboratory at [phone] for redraw instructions. Performed By: #### G LULS #### Point of Care testing , Serum or plasma anion gap de terminationOrdered By: PROVIDER TEMP on 06-14-2025 Anion gap [Moles/Vol] 11.5 mmol/L Normal 6.0-15.0 [facility] Comment on above: Performed By: #### G LULS #### Point of Care testing , Sodium [Moles/volume] in Ser um or PlasmaOrdered By: PROVIDER TEMP on 06-14-2025 Sodium [Moles/Vol] 140 mmol/L Normal 136-145 [facility] Comment on above: Performed By: #### G LULS #### Point of Care testing , Troponin I High Sensitivityo n 06-14-2025 Troponin I High Sensitivity 3 Normal 0-15 [facility] Comment on above: Result Comment: The Troponin units of report have been changed to meet the Chest Pain Accreditation requirement, element EC5.M1l2. Troponin units are changed from pg/ml to ng/L. Also, the decimal is removed and results are in whole numbers. PERFORMED BY: [place] [address] PATHOLOGIST VOCATIONAL TRAINING DIRECTOR CHANEL ROMERO M.D. Performed By: #### G LULS #### Point of Care testing , Urea nitrogen [Mass/volume] in Serum or PlasmaOrdered By: PROVIDER ABRAHAN on 06-14-2025 Urea nitrogen [Mass/Vol] 16 mg/dL Normal 06-21 [facility] Comment on above: Performed By: #### G LULS #### Point of Care testing , X-ray reportOrdered By: Fermín Wilks on 06-14-2025 Study report [facility] [address] [place] [id number] XRay Report Signed Patient: Noel Paul MR#: [id number] : 1990 Acct:[id number] Age/Sex: 34 / F ADM Date: 5 [...] Wilks M.D. 06/14/2025 10:57 PM Dictation Location: [facility]- Transcribed By: [facility] 06/14/252256 Dictated By: Fermín Wilks II, MD 06/14/252255 Signed By: 06/14/252256 [facility] Work Phone: XR chest 2V*on 06-14-2025 XR chest 2V* [facility] Main [place] [address] [place] [address] XRay Report Signed Patient: Noel Paul MR#: [id number] : 1990 Acct:[id number] Age/Sex: 34 / F ADM Date: 06/14/25 [...] Wilks M.D. 06/14/2025 10:57 PM Dictation Location: [place] [address] Transcribed By: [facility] 06/14/252256 Dictated By: Fermín Wilks II, MD 06/14/252255 Signed By: 06/14/252256 Normal [facility] MR Ankle - right WO contrast on 06-06-2025 IMPRESSION: 1. Postoperative changes of posterior tibialis tendon reattachment with marked thickening of the distal tendon probably due to degeneration or postoperative scarring. No evidence of a complete tear. 2. Tenosynovitis at the master knot of Luis. 3. Chronic changes in the deltoid and spring ligaments as described. Unpaid Intern: PSCB Transcribe Date/Time: Jun 06 2025 11:37A Dictated by : RADHA TYSON MD This examination was interpreted and the report reviewed and electronically signed by: KATIANA FLORES MD on Jun 06 2025 2:13PM [facility] DIVISION OF RADIOLOGY * * *Final Report* * * DATE OF EXAM: Jun 06 2025 8:43AM [facility] 0164 - MRI ANKLE WO IVCON [...] significant additional findings. DIVISION OF RADIOLOGY Provider, [facility] - 06/06/2025 * * *Final Report* * * DATE OF EXAM: Jun 06 2025 8:43AM [facility] 0164 - MRI ANKLE WO IVCON [...] the deltoid and spring ligaments as described. Unpaid Intern: HERNÁN Transcribe Date/Time: Jun 06 2025 11:37A Dictated by : RADHA TYSON MD This examination was interpreted and the report reviewed and electronically signed by: KATIANA FLORES MD on Jun 06 2025 2:13PM EST [facility] Radiology Study observation (narrative) [facility] MR Ankle - right WO contrast Ordered By: [facility] Provider on 06-06-2025 [facility] MRI ANKLE WO IVCON RTon 05-28 MRI ANKLE WO IVCON RT * * *Final Report* * * DATE OF EXAM: Jun 06 2025 8:43AM [facility] 0164 - MRI ANKLE WO IVCON [...] the deltoid and spring ligaments as described. Unpaid Intern: HERNÁN Transcribe Date/Time: Jun 06 2025 11:37A Dictated by : RADHA TYSON MD This examination was interpreted and the report reviewed and electronically signed by: KATIANA FLORES MD on Jun 06 2025 2:13PM EST [id number] [facility] (LOORRM) ----- NOEL PAUL ([id number]) 1990 F [place] Date Time Provider Department 05/17/25 SEAN MATA During your visit today, we recorded the following information about you: Natalia Barrios, HAYES 05/17/2025 12:02 PM Signed Patients boot in no longer inflating or button is broken. Her mother will be coming in this way next week. She will bring the boot to change it out. Patient lives in [place]. Allergies As of Date: 05/17/2025 Noted Allergy [...] by mouth once daily. - DEXCOM G7 ROLL ICER 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 - DEXCOM G7 SENSOR [...] Encounter Status:Closed by NATALIA BARRIOS on 06/04/25 [facility] ZAINOVmahesh 05-16-2025 CNOV Office Visit (LOORRM ) ----- NOEL PAUL ([id number]) 1990 F [place] Date Time Provider Department 05/16/25 2:30 PM SEAN MATA During your visit today, we recorded the following information about you: Sean Mata DPM 05/16/2025 2:44 PM Signed Medical intake sheet from May 16, 2025 , was updated by patient, reviewed, and was made part of the patient's chart. Sean Mata DPM PRIMARY SERVICE: [facility] SUBJECTIVE: Patient is seen today [...] tablet by mouth once daily. DEXCOM G7 ROLL ICER misc as directed. DEXCOM G7 SENSOR eduin [...] [M25.571, G89.29] Order(s):MRI ANKLE WO IVCON RIGHT [[id number]] Order #: [id number] FUTURE Prescriptions as of 05/16/2025 - keTORolac (TORADOL) 10 mg tablet Take 1 tablet by mouth every 6 hours as needed. with food. - aspirin 325 mg tablet Take 1 tablet by mouth once daily. - DEXCOM G7 ROLL ICER misc as directed. - DEXCOM G7 SENSOR [...] BMI 60. (more content not included)... Normal [facility] CNOV Office Visit (LOORRM ) ----- NOEL PAUL ([id number]) 1990 F [place] Date Time Provider Department [...] by mouth once daily. - DEXCOM G7 ROLL ICER misc as directed. - DEXCOM G7 SENSOR [...] Status:Closed by BEVERLY DOBSON on 05/16/25 Normal [facility] CNOVon 05-06-2025 CNOV Office Visit (LOORRM ) ----- NOEL PAUL ([id number]) 1990 F [place] Date Time Provider Department [...] by mouth once daily. - DEXCOM G7 ROLL ICER misc as directed. - DEXCOM G7 SENSOR [...] Encounter Status:Closed by BEVERLY DOBSON on 05/06/25 [facility] Additional Injections: R sub talar jointon 04-25-2025 [...] these instructions. Informed Consent Consent Obtained: Verbal [place] Protocol A moment to CARE was completed. [...] the bedside nurse for hospitalized patients) applicable. [facility] CNOVon 04-25-2025 CNOV Office Visit (LOORRM ) ----- NOEL PAUL ([id number]) 1990 F [place] Date Time Provider Department [...] by mouth once daily. - DEXCOM G7 ROLL ICER misc as directed. - DEXCOM G7 SENSOR [...] Encounter Status:Closed by BEVERLY DOBSON on 04/25/25 [facility] CN Office Visit (RAYMONDORRM ) ----- NOEL PAUL ([id number]) 1990 F [place] Date Time Provider Department 04/25/25 2:00 PM SEAN MATA During your visit today, we recorded the following information about you: Sean Mata, SHITAL 04/25/2025 2:38 PM Signed PRIMARY SERVICE: [facility] SUBJECTIVE: Patient is seen today [...] by mouth once daily. - DEXCOM G7 ROLL ICER misc as directed. - DEXCOM G7 SENSOR [...] these instructions. Informed Consent Consent Obtained: Verbal [place] Protocol A moment to CARE was completed. [...] right [M25.571] Order(s):Additional Injections: R subtalar joint [[id number]] Order #: [id number] CAST DAVID LEG, SHORT(WALKING) [[id number]] Order #: [id number] [] BUPivacaine (PF) 0.5 % (5 mg/mL) 1 mL injectionDisp: Rfl: [] triamcinolone acetonide (more content not included)... Normal [facility] CNCOon 03-28-2025 CNCO Letter Text Normal [facility] CNOVon 03-14-2025 CNOV Office Visit (LOORRM ) ----- NOEL PAUL ([id number]) 1990 F [place] Date Time Provider Department 03/14/25 3:45 PM SEAN MATA LOORRM During your visit today, we recorded the following information about you: Sean Mata, DPMadi 03/14/2025 4:01 PM Signed PRIMARY SERVICE: [facility] SUBJECTIVE: Patient is seen today [...] for up to 10 days. DEXCOM G7 ROLL ICER misc as directed. DEXCOM G7 SENSOR eduin [...] [Z98.890] Order(s):XR FOOT GENERAL 3V AP/LAT/OBL RIGHT [[id number]] Order #: [id number] FUTURE XR FOOT GENERAL 3V AP/LAT/OBL RIGHT [[id number]] Order #: [id number] FUTURE Prescriptions as of 03/14/2025 - keTORolac (TORADOL) 10 mg tablet Take 1 tablet by mouth every 6 hours as needed. with food. - aspirin 325 mg tablet Take 1 tablet by mouth once daily. - DEXCOM G7 ROLL ICER misc as directed. - DEXCOM G7 SENSOR [...] BMI 6 (more content not included)... Normal [facility] XR FOOT 3V AP/LAT/OBL RTon 0 03-14-2025 [...] interval change. IMPRESSION: No significant interval change. Unpaid Intern: PSCB Transcribe Date/Time: Mar 14 2025 4:01P Dictated by : NEO PERLA MD This examination was interpreted and the report reviewed and electronically signed by: NEO PERLA MD on Mar 14 2025 4:02PM EST [id number] Normal [facility] XR Foot - right AP and Later al and obliqueon 03-14-2025 IMPRESSION: No significant interval change. Unpaid Intern: HERNÁN Transcribe Date/Time: Mar 14 2025 4:01P Dictated by : NEO PERLA MD This examination was interpreted and the report reviewed and electronically signed by: NEO PERLA MD on Mar 14 2025 4:02PM [facility] DIVISION OF RADIOLOGY * * [...] significant interval change. DIVISION OF RADIOLOGY Provider, [facility] - 03/14/2025 * * *Final Report* [...] change. IMPRESSION IMPRESSION: No significant interval change. Unpaid Intern: HERNÁN Transcribe Date/Time: Mar 14 2025 4:01P Dictated by : NEO PERLA MD This examination was interpreted and the report reviewed and electronically signed by: NEO PERLA MD on Mar 14 2025 4:02PM EST [facility] Radiology Study observation (narrative) [facility] XR Foot - right AP and Later al and obliqueOrdered By: [facility] on 03-14-[address] [facility] Telephone (ORQ) ----- MELCHORNOEL Tadeo ([id number]) 1990 F [place] Date Time Provider Department 02/20/25 SEAN MATA ORJose Carlos During your visit today, we recorded the following information about you: Marva Bhardwaj 02/20/2025 4:08 PM Signed Bonilla from [facility] PT Dept is calling Sean Mata DPM today to request weightbearing guide lines for patient PT [phone] ext [phone] FAX [phone] Patient has been identified by name and birthdate. Duration of symptoms: N/A Person calling: caregiver: Call patient at: [phone] (home) [phone] (cell) Was an appointment scheduled: No Closing statement: Results or non-symptom based questions: Thank you for calling [facility], your call will be returned within the [...] by mouth once daily. - DEXCOM G7 ROLL ICER misc as directed. - DEXCOM G7 SENSOR [...] Encounter Status:Closed by CHRIS BHATT on 02/20/25 [facility] CNOVon 02-13-2025 CNOV Office Visit (LOORRM ) ----- SUZINOEL ORTIZ ([id number]) 1990 F [place] Date Time Provider Department 02/13/25 9:45 AM SEAN MATA LOORRMadi During your visit today, we recorded the following information about you: Sean Mata, SHITAL 02/13/2025 10:05 AM Signed PRIMARY SERVICE: [facility] SUBJECTIVE: Patient is seen today [...] up to 10 days. - DEXCOM G7 ROLL ICER misc as directed. - DEXCOM G7 SENSOR [...] [Z98.890] Order(s):XR FOOT GENERAL 3V AP/LAT/OBL RIGHT [[id number]] Order #: [id number] FUTURE CONSULT TO PHYSICAL THERAPY [9072] Order #: [id number]: 1 FUTURE Prescriptions as of 02/13/2025 - keTORolac (TORADOL) 10 mg tablet Take 1 tablet by mouth every 6 hours as needed. with food. - aspirin 325 mg tablet Take 1 tablet by mouth once daily. - DEXCOM G7 ROLL ICER misc as directed. - DEXCOM G7 SENSOR [...] Date 02/13 (more content not included)... Normal [facility] CNOV Office Visit (LOORRM ) ----- NOEL PAUL ([id number]) 1990 F [place] Date Time Provider Department 02/13/25 9:30 AM [facility] During your visit today, we recorded the [...] by mouth once daily. - DEXCOM G7 ROLL ICER misc as directed. - DEXCOM G7 SENSOR [...] Status:Closed by BEVERLY DOBSON on 02/13/25 Normal [facility] XR FOOT 3V AP/LAT/OBL RTon 0 02-13-2025 [...] interval change. IMPRESSION: Postoperative findings, as described. Unpaid Intern: PSCB Transcribe Date/Time: Feb 13 2025 9:26A Dictated by : MONALISA HOLGUIN MD This examination was interpreted and the report reviewed and electronically signed by: ANGELA VEGAS MD on Feb 13 2025 10:19AM EST [id number] Normal [facility] XR Foot - right AP and Later al and obliqueon 02-13-2025 IMPRESSION: Postoperative findings, as described. Unpaid Intern: [facility] [facility] Transcribe Date/Time: Feb 13 [...] significant interval change. DIVISION OF RADIOLOGY Provider, [facility] - 02/13/2025 * * *Final Report* [...] change. IMPRESSION IMPRESSION: Postoperative findings, as described. Unpaid Intern: PSCB Transcribe Date/Time: Feb 13 2025 9:26A Dictated by : MONALISA HOLGUIN MD This examination was interpreted and the report reviewed and electronically signed by: ANGELA VEGAS MD on Feb 13 2025 10:19AM EST [facility] Radiology Study observation (narrative) [facility] XR Foot - right AP and Later al and obliqueOrdered By: Ccf Provider on 02-13-2025 [facility] CNOVon 01-23-2025 CNOV Office Visit (LOORRM ) ----- NOEL PAUL ([id number]) 1990 F [facility] Date Time Provider Department 01/23/25 11:30 AM SEAN MATAORRMadi During your visit today, we recorded the following information about you: Sean Mata DPM 01/23/2025 11:47 AM Signed PRIMARY SERVICE: [facility] Podiatry SUBJECTIVE: Patient is seen today [...] for up to 10 days. DEXCOM G7 ROLL ICER misc as directed. DEXCOM G7 SENSOR eduin [...] [Q74.2] Order(s):XR FOOT GENERAL 3V AP/LAT/OBL RIGHT [[id number]] Order #: [id number] FUTURE PARKING FOR HANDICAPPED [[id number]] Order #: [id number] Prescriptions as of 01/23/2025 - keTORolac (TORADOL) 10 mg tablet Take 1 tablet by mouth every 6 hours as needed. with food. - aspirin 325 mg tablet Take 1 tablet by mouth once daily. - DEXCOM G7 ROLL ICER misc as directed. - DEXCOM G7 SENSOR [...] (more content not included)... Normal [facility] CNOV Office Visit (LOORRM ) ----- NOEL [id number]) 1990 F [place] Date Time Provider Department [...] by mouth once daily. - DEXCOM G7 ROLL ICER misc as directed. - DEXCOM G7 SENSOR [...] Status:Closed by BEVERLY DOBSON on 01/23/25 Normal [facility] CNCOon 01-09-2025 CNCO Letter Text Normal [facility] CNOVon 01-09-2025 CNOV Office Visit (LOORRM ) ----- NOEL PAUL ([id number]) 1990 F [facility] Date Time Provider Department 01/09/25 10:15 AM SEAN MATA During your visit today, we recorded the following information about you: Sean Mata, SHITAL 01/09/2025 10:55 AM Signed PRIMARY SERVICE: [facility] Podiatry SUBJECTIVE: Patient is seen today for her first scheduled postop visit with her family present 9 days status post a revision of modified Kidner procedure of her right foot without complaints. Medical: PAST MEDICAL HISTORY Diagnosis Date Diabetes mellitus ([facility]) GERD (gastroesophageal reflux disease) Obesity AQUILES (obstructive [...] for up to 10 days. DEXCOM G7 ROLL ICER misc as directed. DEXCOM G7 SENSOR eduin [...] [Q74.2] Order(s):XR FOOT GENERAL 3V AP/LAT/OBL RIGHT [[id number]] Order #: [id number] FUTURE Prescriptions as of 01/09/2025 - keTORolac (TORADOL) 10 mg tablet Take 1 tablet by mouth every 6 hours as needed. with food. - aspirin 325 mg tablet Take 1 tablet by mouth once daily. - promethazine (PHENERGAN) 12.5 mg tablet Take 1 tablet by mouth every 8 hours as needed for up to 10 days. - DEXCOM G7 ROLL ICER misc as directed. - DEXCOM G7 SENSOR [...] Noted R (more content not included)... Normal [facility] Office Visit (LOORR ) ----- NOEL PAUL ([id number]) 1990 F [place] Date Time Provider Department [...] up to 10 days. - DEXCOM G7 ROLL ICER misc as directed. - DEXCOM G7 SENSOR [...] Encounter Status:Closed by SHAYLEE CONCEPCION on 01/09/25 [facility] CNPNon 01-02-2025 CNPN Telephone (LOORRM) ----- NOEL PAUL ([id number]) 1990 F [place] Date Time Provider Department 01/02/25 SEAN MATA During your visit today, we recorded the following information about you: Sean Mata DPM 01/02/2025 12:40 PM Signed Called patient at [phone] to return call regarding pain management. I [...] up to 5 days. - DEXCOM G7 ROLL ICER misc as directed. - DEXCOM G7 SENSOR [...] Encounter Status:Closed by SEAN MATA on 01/02/25 [facility] ANES POSTPROC EVALon 025 ANES POSTPROC EVAL HNO ID: [id number] Author: EPTER BROWN MD Service: Anesthesiology Author Type: Anesthesiologist Type: Anesthesia Postprocedure Evaluation Filed: 12/31/2024 11:19 Note Text: POST ANESTHESIA EVALUATION NOTE : 1990 Procedure Summary Date: 12/31/24 Room / Location: [place] [address] / [facility] Anesthesia Start: 0738 Anesthesia Stop: [...] December 31, 2024 TIME: 11:19 AM CSN: [id number] Normal [facility] ANES PRE-OPon 12-31-2024 ANES PRE-OP HNO ID: [id number] Author: PETER BROWN MD Service: Anesthesiology Author Type: Anesthesiologist Type: Anesthesia Preprocedure Evaluation Filed: 12/31/2024 07:32 Note Text: ANESTHESIOLOGY DAY OF SURGERY NOTE : 1990 Procedure Information Date/Time: 12/31/24729 Procedure: RECONSTRUCTION POSTERIOR TIBIAL TENDON W/EXCISION OF ACCESSORY TARSAL NAVICULAR BONE (Right: Foot) Location: [place] [address] / [facility] Surgeons: [...] of 12/31/2024 Medication Sig - DEXCOM G7 ROLL ICER misc as directed. - DEXCOM G7 SENSOR [...] December 31, 2024 TIME: 7:31 AM CSN: [id number] Normal [facility] BRIEF OP NOTon 12-31-2024 BRIEF OP NOT HNO ID: [id number] Author: SEAN MATA DPM Service: Podiatry Author Type: Physician Type: Brief Op Note Filed: 12/31/2024 09:42 Note Text: BRIEF OPERATIVE / PROCEDURE NOTE LOG ID: [id number] SURGERY/PROCEDURE DATE: 12/31/2024 INCISION/PROCEDURE START TIME: 8:16 AM INCISION CLOSE/PROCEDURE END TIME: SURGEON(S)/PROCEDURALIST( S) AND LOAN BROKER(S): Surgeons and Role: * Sean Mata DPM [...] December 31, 2024 TIME: 9:39 AM [facility] Tele[facility] (ORQ) ----- NOEL PAUL ([id number]) 1990 F [place] Date Time Provider Department [...] calling: self Call patient at: at home [phone] (home) [phone] (cell) Was an appointment scheduled: No Closing statement: Results or non-symptom based questions: Thank you for calling [facility], your call will be returned within the next business day. Karissa Torrez MA 12/31/2024 3:26 PM Signed Message has been sent directly to Dr Mata's phone. Sean Mata DPM 01/01/2025 3:53 PM Signed Called patient at her Lonnie's cell number at [phone] to check on postop progress. Received voicemail. [...] up to 5 days. - DEXCOM G7 ROLL ICER misc as directed. - DEXCOM G7 SENSOR [...] SEAN MATA on 01/01/25 Normal [facility] OPERATIVE NOon 12-31-2024 OPERATIVE NO HNO ID: [id number] Author: SEAN MATA DPM Service: Podiatry Author Type: Physician Type: Operative Report Filed: 01/24/2025 08:37 Note Text: [facility] - Operative Report [address] [address] [place] NOEL PAUL : 1990 AGE: 34. SEX: F PATIENT TYPE: OP HOSP SVC: ORTS LOCATION: [place] [address] ATTENDING PHYSICIAN: Sean Mata DPM CSN NUMBER: [id number] DATE OF SURGERY/PROCEDURE: 12/31/2024 INCISION/PROCEDURE START TIME: 8:16 a.m. INCISION CLOSE/PROCEDURE END TIME: 9:43 a.m. The procedure was performed in conjunction with the resident who was present in the operating room today under my direct supervision from skin to skin. PREOPERATIVE DIAGNOSIS: Painful remaining accessory navicular, right foot. POSTOPERATIVE DIAGNOSIS: Painful remaining accessory navicular, right foot. SURGEON: Sean Mata DPM LOAN BROKER: Maurice Bernard D.P.M. SURGERY/PROCEDURE: Revisional modified Kidner procedure, right foot, CPT 01077. ANESTHESIA: General with a local field block consisting of 20 mL of 2% lidocaine plain. LOCATION: [facility]. HEMOSTASIS: Right pneumatic thigh tourniquet at [...] with a SutureTak, we then used some [id number] sutures distally to the distal (more content not included)... Normal [facility] Pathology biopsy report Joseph (Tiss)on 12-31-2024 CASE REPORT Normal [facility] Comment on above: Order Comment: Speci men Type: TISSUE SPECIMENOrdering Facility: [facility] Address: [address] [place] [address] Result Comment: Surg ical Pathology Report Case: [id number] Authorizing Provider: Sean Mata, Collected: 12/31/2024 09:51 AM DPM Ordering Location: Ambulatory Surgery Received: 12/31/2024 01:28 PM Pathologist: Shemar Pablo MD Specimen: Bone and Soft Tissue, right foot Performed By: #### 6 6121-5 ####[facility] 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 LABORATORYCLIA [id number] [place] [address] [facility] LABCLIA [id number] [address] FINAL DIAGNOSIS Normal [facility] Comment on above: Order Comment: Speci men Type: TISSUE SPECIMENOrdering Facility: [facility] Address: [address] [place] [address] Result Comment: A. B one, right foot, excision: - Osteocartilaginous tissue with degenerative changes and granulation tissue. Performed By: #### 6 6121-5 ####[facility]ITAL[facility] [id number] [place] [address] [facility] LABCLIA [id number] [address] STATES OF [facility] FINAL PERFORMING LAB Normal [facility] Comment on above: Order Comment: Speci men Type: TISSUE SPECIMENOrdering Facility: [facility] Address: [address] [place] [address] Result Comment: Diag nostic interpretation performed at: [facility], [address] [facility] [address] CLIA# [id number] Catalog Specialist: Fermín Ojeda MD Performed By: #### 6 6121-5 ####[facility] [id number] [place] [address] [facility] LABCLIA [id number] [address] OF [place] DESCRIPTION Normal [facility] Comment on above: Order Comment: Speci men Type: TISSUE SPECIMENOrdering Facility: [facility] Address: [address] [place] [address] Result Comment: A. B one and Soft Tissue Received in formalin, labeled right foot are multiple irregular fragments of mccarthy, hard bone measuring 3 x 3 x 0.9 cm in aggregate. Sectioning reveals mccarthy, hard bone. No gross necrotic areas identified. [employer] sections are submitted in A1 following formic decalcification. KSZ January 01, 2025 10:57 AM Gross examination performed at [facility], [address] [facility], [place] [address] Performed By: #### 6 6121-5 ####[facility] LABORATORYCLIA [id number] [facility] [place] [address] [facility] LABCLIA [id number] [facility] [address]BDZ[address] [id number] [facility] HISTORY PHYSICALon HISTORY PHYSICAL HNO ID: [id number] Author: ARY ROCHA APRN.IRENE Service: ? Author Type: Nurse Practitioner Type: H&P Filed: 12/28/2024 10:56 Note Text: [facility] HISTORY AND PHYSICAL EXAMINATION SERVICE DATE: 12/28/2024 SERVICE TIME: 10:08 AM PRIMARY CARE PHYSICIAN: Monique Emmanuel CNP, RAIL SWITCHMAN REASON FOR VISIT: Noel Paul is a [...] STOP-Bang Score: STOP-Bang Score: 0 (Awaiting CPAP) [id number] Score: Age: <65 Sex: female [id number] Score: ARISCAT Score: Age: <=50 Preoperative SpO2: [...] chart review and guidance on proceeding at [place]. Per Dr Goetz, patient may proceed as scheduled at [place] CONSULTS: Anesthesia Consult chart review The Following [...] (more content not included)... Normal [facility] CNOVon 12-12-2024 CNOV Office Visit (LOORRM ) ----- MELCHORIVANI ([id number]) 1990 F [place] Date Time Provider Department 12/12/24 10:00 AM SEAN MATA During your visit today, we recorded the following information about you: Sean Mata DPM 12/12/2024 10:46 AM Signed [facility] Department of Orthopedics [facility] Orthopedic Surgery Name: Noel Paul Date [...] Current Outpatient Medications Medication Sig DEXCOM G7 ROLL ICER misc as directed. DEXCOM G7 SENSOR eduin [...] Prescriptions as of 12/12/2024 - DEXCOM G7 ROLL ICER misc as directed. - DEXCOM G7 SENSOR [...] (more content not included)... 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 - DEXCOM G7 SENSOR [...] CATHY SANTANA on 12/12/24 Normal [facility] XR FOOT 3V AP/LAT/OBL RTon 0 12-12-2024 [...] unremarkable. IMPRESSION: No fracture or joint dislocation. Unpaid Intern: HERNÁN Transcribe Date/Time: Dec 12 2024 9:37A Dictated by : LUX WILLETT MD This examination was interpreted and the report reviewed and electronically signed by: LUC AVILES MD on Dec 12 2024 11:47AM EST [id number] Normal [facility] XR Foot - right AP and Later al and obliqueon 12-12-2024 IMPRESSION: No fracture or joint dislocation. Unpaid Intern: PSCB Transcribe Date/Time: Dec 12 2024 9:37A [...] unremarkable. DIVISION OF RADIOLOGY Provider, Iris Bateman [facility] - 12/12/2024 * * *Final Report* [...] IMPRESSION IMPRESSION: No fracture or joint dislocation. Unpaid Intern: [facility] Transcribe Date/Time: Dec 12 2024 9:37A Dictated by : LUX WILLETT MD This examination was interpreted and the report reviewed and electronically signed by: LUC AVILES MD on Dec 12 2024 11:47AM EST [facility] Radiology Study observation (narrative) [facility] XR Foot - right AP and Later al and obliqueOrdered By: Ccf Provider on 12-12-2024 [facility] 36on 12-04-2024 36 Spoke with patient a nd let her know that per Dr. Her she can bring the disc in and he will take a look at the images and let her know. [facility] 36on 12-03-2024 36 Patient would like t o know if she can get in earlier than her rescheduled appt since she had to cancel. Patient would like to drop off her MRI results sooner than her appt as well. Please advise at [phone] [facility] Telephoneon 12-03-2024 Telephone [id number] Noel Paul 1990 F Date Provider Department Center 12/03/2024 20411-VECUWGTIMBO HURTADO MP ORTHO MPORTHO No family history on file Reason for Visit and Comments: Appointment [375] [facility] 36on 11-29-2024 36 LVM with patient yoni t she will need to bring disc in. Scheduled patient for Tuesday12/03/24 at 10:30 am [facility] 36 Patient would like t o know if she needs to make an appointment to bring in her MRI results or if you have received them? [facility] does not see them in the chart. Please advise at [phone] [facility] Office Visiton 11-26-2024 Follow-up visit [id number] Noel Paul 1990 Date Provider Department Center 11/26/2024 264-KAT HER MP ORTHO MPORTHO No family history on file Level of Service:50988 [place] OFFICE/OUTPATIENT NEW LOW MDM 30 MINUTES (GC) Reason for Visit and Comments: Pain [136] [facility] 36on 11-23-2024 36 LVM to confirm appt [facility] Surgical Pathology Reporton 09-12-2024 Surgical Pathology Report [address] [address]- Surgical Pathology Report Collected Date/Time: 09/05/2024 08:32 [...] Addition of clinical information only. Normal [facility] Comment on above: Performed By: #### 4 [id number] #### [facility] Laboratory [address] [place] [address] Surgical Pathology Reporton 09-11-2024 Surgical Pathology Report [address] [address]- Surgical Pathology Report Collected Date/Time: 09/05/2024 08:32 [...] performed unless gross only specified. Normal [facility] Comment on above: Performed By: #### 4 [id number] #### [facility] [address] [place] [address] Calcium [Mass/volume] in Ser um or PlasmaOrdered By: Sean Ruano on 05-16-2024 Calcium [Mass/Vol] 8.8 mg/dL 8.6-10.3 [facility] Carbon dioxide, total [Moles /volume] in Serum or PlasmaOrdered By: Sean Ruano on 05-16-2024 CO2 [Moles/Vol] 27.3 mmol/L 21.0-31.0 [facility] Chloride [Moles/volume] in S nikkie or PlasmaOrdered By: Sean Ruano on 05-16-2024 Chloride [Moles/Vol] 105 mmol/L 98-107 [facility] Creatinine [Mass/volume] in Serum or PlasmaOrdered By: Sean Ruano on 05-16-2024 Creatinine [Mass/Vol] 0.66 mg/dL 0.60-1.20 [facility] Glucose Glucometer (BldC) [M ass/Vol]Ordered By: Pato Avelar on 05-16-2024 Glucose [Mass/Vol] 106 mg/dL [facility] Comment on above: Random Glucose Refer ence Range is dependent on time and content of last meal. Glucose of more than 200 mg/dL in a nonstressed, ambulatory subject supports the diagnosis of Diabetes Mellitus. Glucose [Mass/volume] in Ser um or PlasmaOrdered By: Sean Ruano on 05-16-2024 Glucose [Mass/Vol] 107 mg/dL 70-100 [facility] Comment on above: ADA recommended refe rence rangeRandom Glucose Reference Range is dependent on time and content of last meal. Glucose of more than 200 mg/dL in a nonstressed, ambulatory subject supports the diagnosis of Diabetes Mellitus. HCG ( test) IA.rapi d Ql (U)Ordered By: Sean Ruano on 05-16-2024 HCG ( test) Ql (U) Negative [facility] No Panel InformationOrdered By: Pato Avelar on 05-16-2024 Bedside Glucose Comment Glu2: cleaned meter [facility] No Panel InformationOrdered By: Sean Ruano on 05-16-2024 Estimated GFR (CKD-EPI) > 60.0 mL/Min [facility] Creatinine Clearance (Chem 161.75 [facility] Potassium [Moles/volume] in Serum or PlasmaOrdered By: Sean Ruano on 05-16-2024 Potassium [Moles/Vol] 3.8 mmol/L 3.5-5.1 [facility] Serum or plasma anion gap de terminationOrdered By: Sean Ruano on 05-16-2024 Anion gap [Moles/Vol] 9.5 mmol/L 6.0-15.0 [facility] Sodium [Moles/volume] in Ser um or PlasmaOrdered By: Sean Ruano on 05-16-2024 Sodium [Moles/Vol] 138 mmol/L 136-145 [facility] Urea nitrogen [Mass/volume] in Serum or PlasmaOrdered By: Sean Ruano on 05-16-2024 Urea nitrogen [Mass/Vol] 17 mg/dL 06-21 [facility] CBC w/ Auto Diffon 4 Basophils/100 WBC (Bld) 0.5 % Normal 0.0-2.0 [facility] Comment on above: Performed By: #### 2 [id number] #### [facility] [address] [place] [address] Basophils/Leukocytes Auto (Bld) [Pure # fraction] 0.1 E9/L Normal 0.0-0.2 [facility] Comment on above: Performed By: #### 2 292051 #### [facility] [address] [place] [address] Eosinophils (Bld) [#/Vol] 0.3 E9/L Normal 0.0-0.5 [facility] Comment on above: Performed By: #### 2 667561 #### [facility] [address] [place] [address] Eosinophils/100 WBC (Bld) 2.9 % Normal 0.0-8.0 [facility] Comment on above: Performed By: #### 2 072957 #### [facility] [address] [place] [address] Erythrocyte distribution width (RBC) [Ratio] 15.6 % High 10.9-14.2 [facility] Comment on above: Performed By: #### 2 492941 #### [facility] [address] [place] [address] Hematocrit (Bld) [Volume fraction] 39.9 % Normal 34.0-46.0 [facility] Comment on above: Performed By: #### 2 177589 #### [facility] [address] [place] [address] Hemoglobin (Bld) [Mass/Vol] 12.8 g/dL Normal 12.0-16.0 [facility] Comment on above: Performed By: #### 2 037241 #### [facility] [address] [place] [address] Lymphocytes (Bld) [#/Vol] 2.3 E9/L Normal 1.0-4.0 [facility] Comment on above: Performed By: #### 2 [id number] #### [facility] [address] [place] [address] Lymphocytes/100 WBC (Bld) 20.9 % Normal 14.0-50.0 [facility] Comment on above: Performed By: #### 2 906803 #### [facility] [address] [place] [address] MCH (RBC) [Entitic mass] 25.4 pg Low 27.0-34.0 [facility] Comment on above: Performed By: #### 2 965480 #### [facility] [address] [place] [address] MCHC (RBC) [Mass/Vol] 32.2 g/dL Normal 31.4-36.0 [facility] Comment on above: Performed By: #### 2 190157 #### [facility] [address] [place] [address] MCV (RBC) [Entitic vol] 79.0 fL Low 80.0-100.0 [facility] Comment on above: Performed By: #### 2 434691 #### [facility] [address] [place] [address] Monocytes (Bld) [#/Vol] 0.7 E9/L Normal 0.2-1.0 [facility] Comment on above: Performed By: #### 2 120327 #### [facility] [address] [place] [address] Neutrophils (Bld) [#/Vol] 7.7 E9/L High 2.0-7.5 [facility] Comment on above: Performed By: #### 2 228376 #### [facility] [address] [place] [address] Neutrophils/100 WBC (Bld) 69.3 % Normal 36.0-75.0 [facility] Comment on above: Performed By: #### 2 622898 #### [facility] [address] [place] [address] Platelet mean volume (Bld) [Entitic vol] 8.3 fL Normal 6.4-10.8 [facility] Comment on above: Performed By: #### 2 512319 #### [facility] [address] [place] [address] Platelets (Bld) [#/Vol] 346.0 E9/L Normal 150.0-500. 0 [facility] Comment on above: Performed By: #### 2 386162 #### [facility] [address] [place] [address] RBC (Bld) [#/Vol] 5.1 E12/L Normal 4.3-5.9 [facility] Comment on above: Performed By: #### 2 965727 #### [facility] [address] [place] [address] WBC corrected for nucl RBC Auto (Bld) [#/Vol] 11.1 E9/L High 4.0-11.0 [facility] Comment on above: Performed By: #### 2 174249 #### [facility] [address] [place] [address] Consent for Treatmenton 03-29 Consent for Treatment [id number] Normal [facility] HEMATOLOGYOrdered By: SYSTEM SYSTEM on 04-25-2024 [...] Remisol Heme Physician Orderon 04-18-2024 Physician Order [id number] Normal [facility] GLYCOHEMOGLOBIN A1Con 2022 ADA RECOMMENDATION SEE BELOW Normal [facility] Comment on above: Result Comment: ADA RECOMMENDED LIMIT 4.0 - 6.0 ADA THERAPEUTIC TARGET < 7.0 ACTION SUGGESTED > 7.0 Performed By: #### A 1C #### [facility] [address] [place] [address] Dr. Benito Dupree Glucose [Mass/Vol] 105 mg/dL Normal [facility] Comment on above: Performed By: #### A 1C #### [facility] [address] [address] [address] Benito Dupree HbA1c (Bld) [Mass fraction] 5.3 % Normal 4.5-6.2 [facility] Comment on above: Performed By: #### A 1C #### [facility] [address] [place] [address] Dr. Benito Dupree [facility]on SARS-CoV-2 (COVID-19) RNA MUKUND+probe Ql (Unsp spec) Not detected Normal NOT DETECTED [facility] Comment on above: Result Comment: This test is not yet approved or cleared by the [place] FDA. When there are no FDA-approved or cleared tests available, and other criteria are met, FDA can make tests available under an emergency access mechanism called an Emergency Use Authorization (EUA). The EUA for this test is supported by the [place] of Health and Human Service's (HHS's) declaration [...] SARS-CoV-2. Performed By: #### C VDTBH #### [facility] [address] [place] [address] Dr. Benito Dupree INFLUENZA A AND B AGon 01-05 INFLUANEGH SEE BELOW Normal [facility] Comment on above: Result Comment: Nega tive for Flu A protein angiten. Infection due to Flu A cannot be ruled out. Flu A angiten in the sample may be below the detection limit of the test. Performed By: #### I NFLUAB #### [facility] [address] [place] [address] Dr. Benito Dupree INFLUBNEG SEE BELOW Normal [facility] Comment on above: Result Comment: Nega tive for Flu B protein antigen. Infection due to Flu B cannot be ruled out. Flu B antigen in the sample may be below the detection limit of the test. Performed By: #### I NFLUAB #### [facility] [address] [place] [address] Dr. Benito Dupree INFLUENZA A AG Negative Normal NEGATIVE SEE COMMENT [facility] Comment on above: Performed By: #### I NFLUAB #### [facility] [address] [place] [address] Dr. Benito Dupree INFLUENZA B AG Negative Normal NEGATIVE SEE COMMENT [facility] Comment on above: Performed By: #### I NFLUAB #### [facility] [address] [place] [address] Dr. Benito Dupree GLYCOHEMOGLOBIN A1Con 2021 ADA RECOMMENDATION SEE BELOW Normal [facility] Comment on above: Result Comment: ADA RECOMMENDED LIMIT 4.0 - 6.0 ADA THERAPEUTIC TARGET < 7.0 ACTION SUGGESTED > 7.0 Performed By: #### A 1C #### [facility] [address] [place] [address] Dr. Benito Dupree Glucose [Mass/Vol] 143 mg/dL Normal [facility] Comment on above: Performed By: #### A 1C #### [facility] [address] [address] [address] Benito Dupree HbA1c (Bld) [Mass fraction] 6.6 % Critically high 4.5-6.2 [facility] Comment on above: Performed By: #### A 1C #### [facility] [address] [address] [address] Benito Dupree LIPID PROFILEon 11-15-2022 CHOL-HDL RATIO NORM SEE BELOW Normal [facility] Comment on above: Result Comment: 3.3 - 4.4 LOW RISK 4.4 - 7.1 AVERAGE RISK 7.1 - 11.0 MODERATE RISK >11.0 HIGH RISK Performed By: #### I NFLUAB #### [facility] [address] [address] [address] Benito Dupree Cholesterol [Mass/Vol] 154 mg/dL Normal <=200 [facility] Comment on above: Performed By: #### I NFLUAB #### [facility] [address] [address] [address] Benito Dupree Cholesterol in HDL [Mass/Vol] 29 mg/dL Critically low 40-60 [facility] Comment on above: Performed By: #### I NFLUAB #### [facility] [address] [address] [address] Benito Dupree Cholesterol in LDL [Mass/Vol] 98.2 mg/dL Normal [facility] Comment on above: Performed By: #### I NFLUAB #### [facility] [address] [address] [address] Benito Dupree Cholesterol.total/Chol esterol in HDL [Mass ratio] 5.3 {ratio} Normal [facility] Comment on above: Performed By: #### I NFLUAB #### [facility] [address] [address] [address] Benito Dupree HDL NORMAL > or = 60 mg/dl - LO W CARDIOVASCULAR RISK <40 mg/dl - HIGH CARDIOVASCULAR RISK Normal [facility] Comment on above: Performed By: #### I NFLUAB #### [facility] [address] [address] [address] Benito Dupree LDL CALC NORMAL SEE BELOW Normal [facility] Comment on above: Result Comment: <100 mg/dl OPTIMAL 100 - 129 mg/dl NEAR OR ABOVE OPTIMAL 130 - 159 mg/dl BORDERLINE HIGH 160 - 189 mg/dl HIGH >190 mg/dl VERY HIGH Performed By: #### I NFLUAB #### [facility] [address] [place] [address] Dr. Benito Dupree Triglyceride [Mass/Vol] 134 mg/dL Normal <=150 [facility] Comment on above: Performed By: #### I NFLUAB #### [facility] [address] [place] [address] Dr. Benito Dupree VLDL CALC 26.8 mg/dL Normal [facility] Comment on above: Performed By: #### I NFLUAB #### [facility] [address] [address] [address] Benito Dupree INSULINon 08-19-2022 Insulin 24.3 uIU/mL Normal 2.6-24.9 [facility] Comment on above: Performed By: #### I NFLUAB #### [facility] [address] [place] [address] Dr. Benito Dupree T4, T3U, FTI LABCORPon 08-19 Free Thyroxine Index 2.6 Normal 1.2-4.9 [facility] Comment on above: Performed By: #### T HYLC #### [facility] [address] [place] [address] Dr. Benito Dupree T3 Uptake 29 % Normal 24-39 [facility] Comment on above: Performed By: #### T HYLC #### [facility] [address] [address] [address] Benito Dupree T4 [Mass/Vol] 8.8 ug/dL Normal 4.5-12.0 [facility] Comment on above: Performed By: #### T HYLC #### [facility] [address] [address] [address] Benito Dupree CBC AUTO DIFFon 08-18-2022 BASO # 0.1 103/ul Normal 0.0-0.1 [facility] Comment on above: Performed By: #### I NFLUAB #### [facility] [address] [place] [address] Dr. Benito Dupree Basophils/100 WBC (Bld) 0.8 % Normal 0.2-2.0 [facility] Comment on above: Performed By: #### I NFLUAB #### [facility] [address] [place] [address] Dr. Benito Dupree EO # 0.3 103/ul Normal 0.0-0.7 [facility] Comment on above: Performed By: #### I NFLUAB #### [facility] [address] [place] [address] Dr. Benito Dupree Eosinophils/100 WBC (Bld) 2.8 % Normal 0.9-7.0 [facility] Comment on above: Performed By: #### I NFLUAB #### [facility] [address] [place] [address] Dr. Benito Dupree Erythrocyte distribution width (RBC) [Ratio] 15.4 % Critically high 11.0-15.0 [facility] Comment on above: Performed By: #### I NFLUAB #### [facility] [address] [place] [address] Dr. Benito Dupree Hematocrit (Bld) [Volume fraction] 43.7 % Normal 36.0-48.0 [facility] Comment on above: Performed By: #### I NFLUAB #### [facility] [address] [place] [address] Dr. Benito Dupree Hemoglobin (Bld) [Mass/Vol] 14.2 g/dL Normal 12.0-16.0 [facility] Comment on above: Performed By: #### I NFLUAB #### [facility] [address] [place] [address] Dr. Benito Dupree IG # 0.08 10e3/ul Critically high 0.00-0.03 [facility] Comment on above: Performed By: #### I NFLUAB #### [facility] [address] [address] [address] Benito Dupree IG % 0.9 % Critically high 0.0-0.5 [facility] Comment on above: Performed By: #### I NFLUAB #### [facility] [address] [address] [address] Benito Dupree LYMPH # 2.3 103/ul Normal 1.2-3.8 [facility] Comment on above: Performed By: #### I NFLUAB #### [facility] [address] [address] [address] Benito Dupree Lymphocytes/100 WBC (Bld) 24.3 % Normal 20.5-60.0 [facility] Comment on above: Performed By: #### I NFLUAB #### [facility] [address] [address] [address] Benito Dupree MANUAL DIFF REQ NO Normal [facility] Comment on above: Performed By: #### I NFLUAB #### [facility] [address] [address] [address] Benito Dupree MCH (RBC) [Entitic mass] 26.1 pg Critically low 26.7-34.0 [facility] Comment on above: Performed By: #### I NFLUAB #### [facility] [address] [address] [address] Benito Dupree MCHC (RBC) [Mass/Vol] 32.5 g/dL Normal 29.9-35.2 [facility] Comment on above: Performed By: #### I NFLUAB #### [facility] [address] [address] [address] Benito Dupree MCV (RBC) [Entitic vol] 80.2 fL Critically low 81.0-99.0 [facility] Comment on above: Performed By: #### I NFLUAB #### [facility] [address] [address] [address] Benito Dupree MONO # 0.5 103/ul Normal 0.3-0.8 [facility] Comment on above: Performed By: #### I NFLUAB #### [facility] [address] [address] [address] Benito Dupree Monocytes/100 WBC (Bld) 5.2 % Normal 1.7-12.0 [facility] Comment on above: Performed By: #### I NFLUAB #### [facility] [address] [address] [address] Benito Dupree NEUT # 6.1 103/ul Normal 1.4-6.5 [facility] Comment on above: Performed By: #### I NFLUAB #### [facility] [address] [place] [address] Dr. Benito Dupree Neutrophils/100 WBC (Bld) 66.0 % Normal 43.0-75.0 [facility] Comment on above: Performed By: #### I NFLUAB #### [facility] [address] [place] [address] Dr. Benito Dupree Platelet mean volume (Bld) [Entitic vol] 9.9 fL Normal 9.5-13.5 [facility] Comment on above: Performed By: #### I NFLUAB #### [facility] [address] [place] [address] Dr. Benito Dupree PLT 291 103/ul Normal 150-450 [facility] Comment on above: Performed By: #### I NFLUAB #### [facility] [address] [place] [address] Dr. Benito Dupree RBC 5.45 106/ul Critically high 4.20-5.[address] [facility] Comment on above: Performed By: #### I NFLUAB #### [facility] [address] [place] [address] Dr. Benito Dupree WBC 9.3 103/ul Normal 4.0-11.0 [facility] Comment on above: Performed By: #### I NFLUAB #### [facility] [address] [place] [address] Dr. Benito Dupree DIRECT LDLon 08-18-2022 Cholesterol in LDL [Mass/Vol] 50 mg/dL Normal [facility] Comment on above: Performed By: #### T HYLC #### [facility] [address] [address] [address] Benito Dupree DLDL NORMAL SEE BELOW Normal [facility] Comment on above: Result Comment: <100 mg/dl OPTIMAL 100 - 129 mg/dl NEAR OR ABOVE OPTIMAL 130 - 159 mg/dl BORDERLINE HIGH 160 - 189 mg/dl HIGH >190 mg/dl VERY HIGH Performed By: #### T HYLC #### [facility] [address] [address] [address] Benito Dupree GLYCOHEMOGLOBIN A1Con 2021 ADA RECOMMENDATION SEE BELOW Normal [facility] Comment on above: Result Comment: ADA RECOMMENDED LIMIT 4.0 - 6.0 ADA THERAPEUTIC TARGET < 7.0 ACTION SUGGESTED > 7.0 Performed By: #### A 1C #### [facility] [address] [address] [address] Benito Dupree Glucose [Mass/Vol] 332 mg/dL Normal [facility] Comment on above: Performed By: #### A 1C #### [facility] [address] [address] [address] Benito Dupree HbA1c (Bld) [Mass fraction] 13.2 % Critically high 4.5-6.2 [facility] Comment on above: Performed By: #### A 1C #### [facility] [address] [place] [address] Dr. Benito Dupree IRONon 08-18-2022 Iron [Mass/Vol] 53.0 ug/dL Normal 50.0-170.0 [facility] Comment on above: Performed By: #### I NFLUAB #### [facility] [address] [address] [address] Benito Dupree LIPID PROFILEon 08-18-2022 CHOL-HDL RATIO NORM SEE BELOW Normal [facility] Comment on above: Result Comment: 3.3 - 4.4 LOW RISK 4.4 - 7.1 AVERAGE RISK 7.1 - 11.0 MODERATE RISK >11.0 HIGH RISK Performed By: #### T HYLC #### [facility] [address] [address] [address] Benito Dupree Cholesterol [Mass/Vol] 260 mg/dL Critically high <=200 [facility] Comment on above: Performed By: #### T HYLC #### [facility] [address] [address] [address] Benito Dupree Cholesterol in HDL [Mass/Vol] 23 mg/dL Critically low 40-60 [facility] Comment on above: Performed By: #### T HYLC #### [facility] [address] [address] [address] Benito Dupree Cholesterol.total/Chol esterol in HDL [Mass ratio] 11.3 {ratio} Normal [facility] Comment on above: Performed By: #### T HYLC #### [facility] [address] [place] [address] Dr. Benito Dupree HDL NORMAL > or = 60 mg/dl - LO W CARDIOVASCULAR RISK <40 mg/dl - HIGH CARDIOVASCULAR RISK Normal [facility] Comment on above: Performed By: #### T HYLC #### [facility] [address] [address] [address] Benito Dupree Triglyceride [Mass/Vol] 1711 mg/dL Critically high <=150 [facility] Comment on above: Performed By: #### T HYLC #### [facility] [address] [place] [address] Dr. Benito Dupree VLDL CALC 342.2 mg/dL Normal [facility] Comment on above: Performed By: #### T HYLC #### [facility] [address] [address] [address] Benito Dupree PROF 14(COMP METB)on 022 Albumin [Mass/Vol] 3.2 g/dL Critically low 3.4-5.0 [facility] Comment on above: Performed By: #### T HYLC #### [facility] [address] [address] [address] Benito Dupree Albumin/Globulin [Mass ratio] 0.7 {ratio} Normal [facility] Comment on above: Performed By: #### T HYLC #### [facility] [address] [address] [address] Benito Dupree ALP [Catalytic activity/Vol] 92 U/L Normal 46-116 [facility] Comment on above: Performed By: #### T HYLC #### [facility] [address] [place] [address] Dr. Benito Dupree ALT [Catalytic activity/Vol] 41 U/L Normal 14-59 [facility] Comment on above: Performed By: #### T HYLC #### [facility] [address] [address] [address] Benito Dupree Anion gap [Moles/Vol] 14.1 mmol/L Normal [facility] Comment on above: Performed By: #### T HYLC #### [facility] [address] [place] [address] Dr. Benito Dupree AST [Catalytic activity/Vol] 16 U/L Normal 15-37 [facility] Comment on above: Performed By: #### T HYLC #### [facility] [address] [place] [address] Dr. Benito Dupree Bilirubin [Mass/Vol] 0.9 mg/dL Normal 0.2-1.0 [facility] Comment on above: Performed By: #### T HYLC #### [facility] [address] [place] [address] Dr. Benito Dupree Calcium [Mass/Vol] 9.1 mg/dL Normal 8.5-10.1 [facility] Comment on above: Performed By: #### T HYLC #### [facility] [address] [place] [address] Dr. Benito Dupree Chloride [Moles/Vol] 97 mmol/L Critically low 98-107 [facility] Comment on above: Performed By: #### T HYLC #### [facility] [address] [address] [address] Benito Dupree CO2 [Moles/Vol] 24.9 mmol/L Normal 21.0-32.[address] [facility] Comment on above: Performed By: #### T HYLC #### [facility] [address] [place] [address] Dr. Benito Dupree Creatinine [Mass/Vol] 0.67 mg/dL Normal 0.55-1.02 [facility] Comment on above: Performed By: #### T HYLC #### [facility] [address] [place] [address] Dr. Benito Dupree EGFR-AF MICRONESIAN >60 Normal >=60 [facility] Comment on above: Performed By: #### T HYLC #### [facility] [address] [address] [address] Benito Dupree EGFR-NON AF MICRONESIAN >60 Normal >=60 [facility] Comment on above: Performed By: #### T HYLC #### [facility] [address] [place] [address] Dr. Benito Dupree Globulin (S) [Mass/Vol] 4.6 g/dL Normal [facility] Comment on above: Performed By: #### T HYLC #### [facility] [address] [place] [address] Dr. Benito Dupree Glucose [Mass/Vol] 402 mg/dL Critically high 74-106 [facility] Comment on above: Performed By: #### T HYLC #### [facility] [address] [place] [address] Dr. Benito Dupree Potassium [Moles/Vol] 4.0 mmol/L Normal 3.5-5.1 [facility] Comment on above: Performed By: #### T HYLC #### [facility] [address] [place] [address] Dr. Benito Dupree Protein [Mass/Vol] 7.8 g/dL Normal 6.4-8.2 [facility] Comment on above: Performed By: #### T HYLC #### [facility] [address] [place] [address] Dr. Benito Dupree Sodium [Moles/Vol] 132 mmol/L Critically low 136-145 [facility] Comment on above: Performed By: #### T HYLC #### [facility] [address] [place] [address] Dr. Benito Dupree Urea nitrogen [Mass/Vol] 10.0 mg/dL Normal 7.0-18.0 [facility] Comment on above: Performed By: #### T HYLC #### [facility] [address] [place] [address] Dr. Benito Dupree Urea nitrogen/Creatinine [Mass ratio] 14.9 mg/mg Normal [facility] Comment on above: Performed By: #### T HYLC #### [facility] [address] [place] [address] Dr. Benito Dupree TSHon 08-18-2022 TSH 3.676 uIU/mL Normal 0.358-3.74 0 [facility] Comment on above: Performed By: #### T HYLC #### [facility] [address] [place] [address] Dr. Benito Dupree VITAMIN D 25 OHon 08-18-2022 VIT D 25-OH 13.9 ng/mL Normal [facility] Comment on above: Performed By: #### I NFLUAB #### [facility] [address] [place] [address] Dr. Benito Dupree VIT D RANGES SEE BELOW Normal [facility] Comment on above: Result Comment: <20 ng/mL Vit D deficient 20 - <30 ng/mL Vit D insufficient 30 - 100 ng/mL Vit D sufficient >100 ng/mL Potential Toxicity Performed By: #### I NFLUAB #### [facility] [address] [place] [address] Dr. Benito Dupree AMYLASEon 06-01-2022 Amylase [Catalytic activity/Vol] 29 U/L Normal 25-115 [facility] Comment on above: Performed By: #### I NFLUAB #### [facility] [address] [place] [address] Dr. Benito Dupree CBC AUTO DIFFon 06-01-2022 BASO # 0.1 103/ul Normal 0.0-0.1 [facility] Comment on above: Performed By: #### I NFLUAB #### [facility] [address] [place] [address] Dr. Benito Dupree Basophils/100 WBC (Bld) 0.5 % Normal 0.2-2.0 [facility] Comment on above: Performed By: #### I NFLUAB #### [facility] [address] [place] [address] Dr. Benito Dupree EO # 0.3 103/ul Normal 0.0-0.7 [facility] Comment on above: Performed By: #### I NFLUAB #### [facility] [address] [place] [address] Dr. Benito Dupree Eosinophils/100 WBC (Bld) 2.0 % Normal 0.9-7.0 [facility] Comment on above: Performed By: #### I NFLUAB #### [facility] [address] [place] [address] Dr. Benito Dupree Erythrocyte distribution width (RBC) [Ratio] 15.3 % Critically high 11.0-15.0 [facility] Comment on above: Performed By: #### I NFLUAB #### [facility] [address] [place] [address] Dr. Benito Dupree Hematocrit (Bld) [Volume fraction] 41.5 % Normal 36.0-48.0 [facility] Comment on above: Performed By: #### I NFLUAB #### [facility] [address] [place] [address] Dr. Benito Dupree Hemoglobin (Bld) [Mass/Vol] 12.7 g/dL Normal 12.0-16.0 [facility] Comment on above: Performed By: #### I NFLUAB #### [facility] [address] [place] [address] Dr. Benito Dupree IG # 0.06 10e3/ul Critically high 0.00-0.03 [facility] Comment on above: Performed By: #### I NFLUAB #### [facility] [address] [place] [address] Dr. Benito Dupree IG % 0.4 % Normal 0.0-0.5 [facility] Comment on above: Performed By: #### I NFLUAB #### [facility] [address] [place] [address] Dr. Benito Dupree LYMPH # 1.9 103/ul Normal 1.2-3.8 [facility] Comment on above: Performed By: #### I NFLUAB #### [facility] [address] [place] [address] Dr. Benito Dupree Lymphocytes/100 WBC (Bld) 13.9 % Critically low 20.5-60.0 [facility] Comment on above: Performed By: #### I NFLUAB #### [facility] [address] [place] [address] Dr. Benito Dupree MANUAL DIFF REQ NO Normal [facility] Comment on above: Performed By: #### I NFLUAB #### [facility] [address] [place] [address] Dr. Benito Dupree MCH (RBC) [Entitic mass] 24.7 pg Critically low 26.7-34.0 [facility] Comment on above: Performed By: #### I NFLUAB #### [facility] [address] [place] [address] Dr. Benito Dupree MCHC (RBC) [Mass/Vol] 30.6 g/dL Normal 29.9-35.2 [facility] Comment on above: Performed By: #### I NFLUAB #### [facility] [address] [place] [address] Dr. Benito Dupree MCV (RBC) [Entitic vol] 80.6 fL Critically low 81.0-99.0 [facility] Comment on above: Performed By: #### I NFLUAB #### [facility] [address] [place] [address] Dr. Benito Dupree MONO # 0.5 103/ul Normal 0.3-0.8 [facility] Comment on above: Performed By: #### I NFLUAB #### [facility] [address] [place] [address] Dr. Benito Dupree Monocytes/100 WBC (Bld) 4.0 % Normal 1.7-12.0 [facility] Comment on above: Performed By: #### I NFLUAB #### [facility] [address] [place] [address] Dr. Benito Dupree NEUT # 10.6 103/ul Critically high 1.4-6.[address] [facility] Comment on above: Performed By: #### I NFLUAB #### [facility] [address] [place] [address] Dr. Benito Dupree Neutrophils/100 WBC (Bld) 79.2 % Critically high 43.0-75.0 [facility] Comment on above: Performed By: #### I NFLUAB #### [facility] [address] [place] [address] Dr. Benito Dupree Platelet mean volume (Bld) [Entitic vol] 9.3 fL Critically low 9.5-13.5 [facility] Comment on above: Performed By: #### I NFLUAB #### [facility] [address] [place] [address] Dr. Benito Dupree PLT 391 103/ul Normal 150-450 The [facility] Comment on above: Performed By: #### I NFLUAB #### [facility] [address] [place] [address] Dr. Benito Dupree RBC 5.15 106/ul Normal 4.20-5.40 [facility] Comment on above: Performed By: #### I NFLUAB #### [facility] [address] [place] [address] Dr. Benito Dupree WBC 13.4 103/ul Critically high 4.0-11.[address] [facility] Comment on above: Performed By: #### I NFLUAB #### [facility] [address] [place] [address] ABD/PELV W CONon [...] WESTLEY JHA Date: 2022-06-01 14:59 Normal [facility] ER URINE PROFILEon 2 Bilirubin Ql (U) Negative Normal NEGATIVE The [facility] Comment on above: Performed By: #### U MICRO, ERUR #### [facility] [address] [place] [address] Dr. Benito Dupree Clarity (U) SL CLOUDY Abnormal CLEAR [facility] Comment on above: Performed By: #### U MICRO, ERUR #### [facility] [address] [place] [address] Dr. Benito Dupree Color (U) YELLOW Normal YELLOW [facility] Comment on above: Performed By: #### U MICRO, ERUR #### [facility] [address] [address] [address] Benito Dupree ERUAHD A micrscopic examina tion will be performed if indicated. Normal [facility] Comment on above: Performed By: #### U MICRO, ERUR #### [facility] [address] [place] [address] Dr. Benito Dupree Glucose Ql (U) Negative Normal NEGATIVE The [facility] Comment on above: Performed By: #### U MICRO, ERUR #### [facility] [address] [place] [address] Dr. Benito Dupree Hemoglobin Ql (U) LARGE Abnormal NEGATIVE The [facility] Comment on above: Performed By: #### U MICRO, ERUR #### [facility] [address] [place] [address] Dr. Benito Dupree Ketones Ql (U) Negative Normal NEGATIVE The [facility] Comment on above: Performed By: #### U MICRO, ERUR #### [facility] [address] [place] [address] Dr. Benito Dupree LEUKOCYTES Negative Normal NEGATIVE [facility] Comment on above: Performed By: #### U MICRO, ERUR #### [facility] [address] [place] [address] Dr. Benito Dupree Nitrite Ql (U) Negative Normal NEGATIVE [facility] Comment on above: Performed By: #### U MICRO, ERUR #### [facility] [address] [place] [address] Dr. Benito Dupree pH (U) 5.5 [pH] Normal 5-9 [facility] Comment on above: Performed By: #### U MICRO, ERUR #### [facility] [address] [place] [address] Dr. Benito Dupree SPEC GRAVITY 1.010 Normal 1.005-<=1. 025 [facility] Comment on above: Performed By: #### U MICRO, ERUR #### [facility] [address] [place] [address] Dr. Benito Dupree UA PROTEIN TRACE Normal NEGATIVE/ TRACE [facility] Comment on above: Performed By: #### U MICRO, ERUR #### [facility] [address] [address] [address] Benito Dupree UR MICRO IND INDICATED Normal [facility] Comment on above: Performed By: #### U MICRO, ERUR #### [facility] [address] [place] [address] Dr. Benito Dupree Urobilinogen Qn (U) 1.0 {Tuyet'U}/dL Normal 0.2 - 1. 0 [facility] Comment on above: Performed By: #### U MICRO, ERUR #### [facility] [address] [place] [address] Dr. Benito Dupree LACTATE/LACTIC ACIDon 2021 Lactate [Moles/Vol] 1.1 mmol/L Normal 0.4-1.9 [facility] Comment on above: Performed By: #### L ACT #### [facility] [address] [place] [address] Dr. Benito Dupree LIPASEon 06-01-2022 Lipase [Catalytic activity/Vol] 111.0 U/L Normal 73.0-393.0 [facility] Comment on above: Performed By: #### I NFLUAB #### [facility] [address] [place] [address] Dr. Benito Dupree PREG HCG QUALon 06-01-2022 , QUAL Negative Normal NEGATIVE [facility] Comment on above: Performed By: #### P REG #### [facility] [address] [place] [address] Dr. Benito Dupree PROF 14(COMP METB)on 022 Albumin [Mass/Vol] 3.6 g/dL Normal 3.4-5.0 [facility] Comment on above: Performed By: #### I NFLUAB #### [facility] [address] [place] [address] Dr. Benito Dupree Albumin/Globulin [Mass ratio] 0.7 {ratio} Normal [facility] Comment on above: Performed By: #### I NFLUAB #### [facility] [address] [place] [address] Dr. Benito Dupree ALP [Catalytic activity/Vol] 90 U/L Normal 46-116 [facility] Comment on above: Performed By: #### I NFLUAB #### [facility] [address] [place] [address] Dr. Benito Dupree ALT [Catalytic activity/Vol] 39 U/L Normal 14-59 [facility] Comment on above: Performed By: #### I NFLUAB #### [facility] [address] [place] [address] Dr. Benito Dupree Anion gap [Moles/Vol] 13.0 mmol/L Normal [facility] Comment on above: Performed By: #### I NFLUAB #### [facility] [address] [address] [address] Benito Dupree AST [Catalytic activity/Vol] 25 U/L Normal 15-37 [facility] Comment on above: Performed By: #### I NFLUAB #### [facility] [address] [address] [address] Benito Dupree Bilirubin [Mass/Vol] 1.1 mg/dL Critically high 0.2-1.0 [facility] Comment on above: Performed By: #### I NFLUAB #### [facility] [address] [address] [address] Benito Dupree Calcium [Mass/Vol] 9.4 mg/dL Normal 8.5-10.1 [facility] Comment on above: Performed By: #### I NFLUAB #### [facility] [address] [address] [address] Benito Dupree Chloride [Moles/Vol] 99 mmol/L Normal 98-107 [facility] Comment on above: Performed By: #### I NFLUAB #### [facility] [address] [address] [address] Benito Dupree CO2 [Moles/Vol] 27.3 mmol/L Normal 21.0-32.0 [facility] Comment on above: Performed By: #### I NFLUAB #### [facility] [address] [address] [address] Benito Dupree Creatinine [Mass/Vol] 0.87 mg/dL Normal 0.55-1.02 [facility] Comment on above: Performed By: #### I NFLUAB #### [facility] [address] [place] [address] Dr. Benito Dupree EGFR-AF MICRONESIAN >60 Normal >=60 [facility] Comment on above: Performed By: #### I NFLUAB #### [facility] [address] [address] [address] Benito Dupree EGFR-NON AF MICRONESIAN >60 Normal >=60 [facility] Comment on above: Performed By: #### I NFLUAB #### [facility] [address] [address] [address] Benito Dupree Globulin (S) [Mass/Vol] 4.8 g/dL Normal [facility] Comment on above: Performed By: #### I NFLUAB #### [facility] [address] [address] [address] Benito Dupree Glucose [Mass/Vol] 218 mg/dL Critically high 74-106 [facility] Comment on above: Performed By: #### I NFLUAB #### [facility] [address] [address] [address] Benito Dupree Potassium [Moles/Vol] 4.1 mmol/L Normal 3.5-5.1 [facility] Comment on above: Performed By: #### I NFLUAB #### [facility] [address] [place] [address] Dr. Benito Dupree Protein [Mass/Vol] 8.4 g/dL Critically high 6.4-8.2 [facility] Comment on above: Performed By: #### I NFLUAB #### [facility] [address] [place] [address] Dr. Benito Dupree Sodium [Moles/Vol] 135 mmol/L Critically low 136-145 [facility] Comment on above: Performed By: #### I NFLUAB #### [facility] [address] [place] [address] Dr. Benito Dupree Urea nitrogen [Mass/Vol] 15.0 mg/dL Normal 7.0-18.0 [facility] Comment on above: Performed By: #### I NFLUAB #### [facility] [address] [place] [address] Dr. Benito Dupree Urea nitrogen/Creatinine [Mass ratio] 17.2 mg/mg Normal [facility] Comment on above: Performed By: #### I NFLUAB #### [facility] [address] [place] [address] Dr. Benito Dupree URINE MICROSCOPIC ONLYon BACTERIA TRACE Abnormal NONE SEEN [facility] Comment on above: Performed By: #### U MICRO, ERUR #### [facility] [address] [address] [address] Benito Dupree Bacteria identified Cx Nom (U) NOT INDICATED Normal [facility] Comment on above: Performed By: #### U MICRO, ERUR #### [facility] [address] [address] [address] Benito Dupree CAST NONE SEEN Normal NONE SEEN [facility] Comment on above: Performed By: #### U MICRO, ERUR #### [facility] [address] [address] [address] Benito Dupree Crystals LM Nom (Urine sed) NONE SEEN Normal NONE SEEN [facility] Comment on above: Performed By: #### U MICRO, ERUR #### [facility] [address] [address] [address] Benito Dupree Epithelial cells LM Ql (Urine sed) MODERATE Abnormal NONE SEEN /RARE [facility] Comment on above: Performed By: #### U MICRO, ERUR #### [facility] [address] [address] [address] Benito Dupree MUCOUS TRACE Abnormal NONE SEEN [facility] Comment on above: Performed By: #### U MICRO, ERUR #### [facility] [address] [address] [address] Benito Dupree RBC 2-5 Abnormal 0-2 [facility] Comment on above: Performed By: #### U MICRO, ERUR #### [facility] [address] [address] [address] Benito Dupree WBC 0-2 Abnormal NONE SEEN [facility] Comment on above: Performed By: #### U MICRO, ERUR #### [facility] [address] [address] [address] Benito Dupree XR hand RT min 3V*on 022 XR hand RT min 3V* [facility] [employer] Other XR hand RT min 3V* [facility] [employer] Other XR hand RT min 3V* [address] [employer] Other XR hand RT min 3V* YOMAIRA Yadav [address] [employer] Other XR hand RT min 3V* XRay Report [employer] Other XR hand RT min 3V* Signed [employer] Other XR hand RT min 3V* Patient: Noel Paul MR#: [id number] [employer] Other XR hand RT min 3V* : 1990 Acct:[id number] [employer] Other XR hand RT min 3V* Age/Sex: 31 / F ADM Date: 03/22/22 [employer] Other XR hand RT min 3V* Loc: XDUCLY Room: pe: [facility] [employer] Other XR hand RT min 3V* Attending Dr: Monique SANDOVAL [employer] Other XR hand RT min 3V* Ordering Provider: LORI Woodard [employer] Other XR hand RT min 3V* Date of Service: 03/22/22 [employer] Other XR hand RT min 3V* XR/XR hand RT min 3V*: Finger pain, right [employer] Other XR hand RT min 3V* Copies to: LORI Dias [employer] Other XR hand RT min 3V* [address] ain film [employer] Other XR hand RT min 3V* COMPARISON:None N [facility] Other XR hand RT min 3V* HISTORY:Fell going upstairs. RIGHT ring finger injury. [employer] Other XR hand RT min 3V* No fracture, disloca tion or focal soft tissue abnormality seen. [employer] Other XR hand RT min 3V* X R/XR hand RT min 3V* [employer] Other XR hand RT min 3V* IMPRESSION:No acute findings [employer] Other XR hand RT min 3V* Impression dictated by: Ta Galvan M.D.03/22/2022 4:42 PM [employer] Other XR hand RT min 3V* Dictation Location: [place] [address] [employer] Other XR hand RT min 3V* Transcribed By: [facility] 03/22/22 [facility] [employer] Other XR hand RT min 3V* Dictated By: Glenn Galvan DO 03/22/22 [facility] [employer] Other XR hand RT min 3V* Signed By: [employer] Other XR hand RT min 3V* 03/22/[address] [place] [address] [employer] Other Vital Signs Date Time Vital Sign Value Performing Clinician Facility 2025 14:15-0400 Body height 157.48 cm Monique Emmanuel NP-C Work Phone: [facility] 2025 14:15-0400 Body mass index (BMI) [Ratio] 62.4 kg/m2 Monique Emmanuel FITNESS TEACHER-C Work Phone: [facility] 2025 14:15-0400 Body weight 154.67 kg Monique Emmanuel FITNESS TEACHER-C Work Phone: [facility] 2025 14:15-0400 Diastolic blood pressure 80 mm[Hg] Monique Emmanuel FITNESS TEACHER-C Work Phone: [facility] 2025 14:15-0400 Heart rate 86 /min Monique Lien FITNESS TEACHER-C Work Phone: [facility] 2025 14:15-0400 Respiratory rate 18 /min Monique Lien FITNESS TEACHER-C Work Phone: [facility] 2025 14:15-0400 SaO2% (BldA) [Mass fraction] 97 % Monique Lien FITNESS TEACHER-C Work Phone: [facility] 2025 14:15-0400 Systolic blood pressure 114 mm[Hg] Monique Lien FITNESS TEACHER-C Work Phone: [facility] 06-16-2025 11:26-0400 Body temperature 98 [degF] Monique Lien FITNESS TEACHER-C Work Phone: [facility] 06-16-2025 11:26-0400 Diastolic blood pressure 85 mm[Hg] Monique Lien FITNESS TEACHER-C Work Phone: [facility] 06-16-2025 11:26-0400 Heart rate 78 /min Monique Lien FITNESS TEACHER-C Work Phone: [facility] 06-16-2025 11:26-0400 Respiratory rate 20 /min Monique Lien FITNESS TEACHER-C Work Phone: [facility] 06-16-2025 11:26-0400 SaO2% (BldA) [Mass fraction] 93 % Monique Lien FITNESS TEACHER-C Work Phone: [facility] 06-16-2025 11:26-0400 Systolic blood pressure 124 mm[Hg] Monique Lien FITNESS TEACHER-C Work Phone: [facility] 06-16-2025 06:00-0400 Body weight 152 kg Monique Lien FITNESS TEACHER-C Work Phone: [facility] 06-15-2025 03:55-0400 Body height 157.48 cm Monique Lien FITNESS TEACHER-C Work Phone: [facility] 06-15-2025 03:00-0400 Diastolic blood pressure 58 mm[Hg] Monique Whitleymer FITNESS TEACHER-C Work Phone: [facility] 06-15-2025 03:00-0400 Heart rate 80 /min Monique Lien FITNESS TEACHER-C Work Phone: [facility] 06-15-2025 03:00-0400 Inhaled oxygen flow rate 2 L/min Monique Whitleymer FITNESS TEACHER-C Work Phone: [facility] 06-15-2025 03:00-0400 Respiratory rate 18 /min Monique Lien FITNESS TEACHER-C Work Phone: [facility] 06-15-2025 03:00-0400 SaO2% (BldA) [Mass fraction] 98 % Moniquegisselle Whitleymer FITNESS TEACHER-C Work Phone: [facility] 06-15-2025 03:00-0400 Systolic blood pressure 126 mm[Hg] Monique Whitleymer FITNESS TEACHER-C Work Phone: [facility] 06-14-2025 22:16-0400 Body height 157.48 cm Monique Lien FITNESS TEACHER-C Work Phone: [facility] 06-14-2025 22:16-0400 Body temperature 98.9 [degF] Monique Lien FITNESS TEACHER-C Work Phone: [facility] 06-14-2025 22:16-0400 Body weight 145.14 kg Monique Whitleymer FITNESS TEACHER-C Work Phone: [facility] 03-21-2025 14:16-0400 Body height 157.5 cm Pato Avelar DPM Work Phone: [facility] 03-21-2025 14:16-0400 Body mass index (BMI) [Ratio] 56.7 kg/m2 Pato Avelar DPM Work Phone: [facility] 03-21-2025 14:16-0400 Body weight 140.62 kg Pato Avelar DPM Work Phone: [facility] 03-21-2025 14:16-0400 Respiratory rate 16 /min Pato Avelar DPM Work Phone: [facility] 03-07-2025 09:06-0400 Body height 157.5 cm Pato Avelar DPM Work Phone: [facility] 03-07-2025 09:06-0400 Body mass index (BMI) [Ratio] 56.7 kg/m2 Pato Avelar DPM Work Phone: [facility] 03-07-2025 09:06-0400 Body weight 140.62 kg Pato Avelar DPM Work Phone: [facility] 03-07-2025 09:06-0400 Respiratory rate 16 /min Pato Avelar DPM Work Phone: [facility] 02-05-2025 17:00-0400 Body height 157.48 cm [facility] 02-05-2025 17:00-0400 Body mass index (BMI) [Ratio] 59.2 kg/m2 [facility] 02-05-2025 17:00-0400 Body temperature 98.2 [degF] [facility] 02-05-2025 17:00-0400 Body weight 146.96 kg [facility] 02-05-2025 17:00-0400 Diastolic blood pressure 91 mm[Hg] [facility] 02-05-2025 17:00-0400 Heart rate 82 /min [facility] 02-05-2025 17:00-0400 Respiratory rate 18 /min [facility] 02-05-2025 17:00-0400 SaO2% (BldA) [Mass fraction] 98 % [facility] 02-05-2025 17:00-0400 Systolic blood pressure 151 mm[Hg] [facility] 12-28-2024 09:54-0500 Body height 157.5 cm Pacc 3 Work Phone: [facility] 12-28-2024 09:54-0500 Body mass index (BMI) [Ratio] 62.06 kg/m2 [facility] 3 Work Phone: [facility] 12-28-2024 09:54-0500 Body temperature 97.39 [degF] [facility] 3 Work Phone: [facility] 12-28-2024 09:54-0500 Body weight 153.9 kg Pacc 3 Work Phone: [facility] 12-28-2024 09:54-0500 Diastolic blood pressure 73 mm[Hg] Pacc 3 Work Phone: [facility] 12-28-2024 09:54-0500 Heart rate 104 /min Pacc 3 Work Phone: [facility] 12-28-2024 09:54-0500 Respiratory rate 16 /min Pacc 3 Work Phone: [facility] 12-28-2024 09:54-0500 SaO2% (BldA) [Mass fraction] 98 % [facility] 3 Work Phone: [facility] 12-28-2024 09:54-0500 Systolic blood pressure 130 mm[Hg] Pacc 3 Work Phone: [facility] 10-24-2024 14:24-0500 Body height 157.5 cm Pato Brown DPM Work Phone: [facility] 10-24-2024 14:24-0500 Body mass index (BMI) [Ratio] 56.7 kg/m2 Pato Brown DPM Work Phone: [facility] 10-24-2024 14:24-0500 Body weight 140.62 kg Pato Brown DPM Work Phone: [facility] 10-24-2024 14:24-0500 Respiratory rate 18 /min Pato Brown DPM Work Phone: [facility] 10-04-2024 14:48-0500 Body height 157.5 cm Pato Brown DPM Work Phone: [facility] 10-04-2024 14:48-0500 Body mass index (BMI) [Ratio] 56.7 kg/m2 Pato Avelar DPM Work Phone: [facility] 10-04-2024 14:48-0500 Body weight 140.62 kg Pato Avelar DPM Work Phone: [facility] 10-04-2024 14:48-0500 Diastolic blood pressure 79 mm[Hg] Pato Avelar DPM Work Phone: [facility] 10-04-2024 14:48-0500 Heart rate 82 /min Pato Avelar DPM Work Phone: [facility] 10-04-2024 14:48-0500 Systolic blood pressure 129 mm[Hg] Pato Avelar DPM Work Phone: [facility] 09-20-2024 14:37-0400 Body height 157.5 cm Pato Avelar DPM Work Phone: [facility] 09-20-2024 14:37-0400 Body mass index (BMI) [Ratio] 56.7 kg/m2 Pato Avelar DPM Work Phone: [facility] 09-20-2024 14:37-0400 Body weight 140.62 kg Pato Avelar DPM Work Phone: [facility] 09-20-2024 14:37-0400 Diastolic blood pressure 77 mm[Hg] Pato Avelar DPM Work Phone: [facility] 09-20-2024 14:37-0400 Heart rate 79 /min Pato Avelar DPM Work Phone: [facility] 09-20-2024 14:37-0400 Systolic blood pressure 126 mm[Hg] Pato Avelar DPM Work Phone: [facility] 09-13-2024 14:46-0400 Body height 157.5 cm aPto Avelar DPM Work Phone: [facility] 09-13-2024 14:46-0400 Body mass index (BMI) [Ratio] 56.7 kg/m2 Pato Brown DPM Work Phone: [facility] 09-13-2024 14:46-0400 Body weight 140.62 kg Pato Avelar DPM Work Phone: [facility] 09-13-2024 14:46-0400 Diastolic blood pressure 78 mm[Hg] Pato Avelar DPM Work Phone: [facility] 09-13-2024 14:46-0400 Heart rate 85 /min Pato Avelar DPM Work Phone: [facility] 09-13-2024 14:46-0400 Systolic blood pressure 123 mm[Hg] Pato Avelar DPM Work Phone: [facility] 08-30-2024 14:58-0400 Body height 157.5 cm Pato Avelar DPM Work Phone: [facility] 08-30-2024 14:58-0400 Body mass index (BMI) [Ratio] 56.7 kg/m2 Pato Avelar DPM Work Phone: [facility] 08-30-2024 14:58-0400 Body weight 140.62 kg Pato Avelar DPM Work Phone: [facility] 08-30-2024 14:58-0400 Diastolic blood pressure 80 mm[Hg] Pato Avelar DPM Work Phone: [facility] 08-30-2024 14:58-0400 Heart rate 75 /min Pato Avelar DPM Work Phone: [facility] 08-30-2024 14:58-0400 Respiratory rate 18 /min Pato Avelar DPM Work Phone: [facility] 08-30-2024 14:58-0400 Systolic blood pressure 128 mm[Hg] Pato Avelar DPM Work Phone: [facility] 08-02-2024 14:52-0400 Body height 157.5 cm Pato Brown DPM Work Phone: [facility] 08-02-2024 14:52-0400 Body mass index (BMI) [Ratio] 56.7 kg/m2 Pato Avelar DPM Work Phone: [facility] 08-02-2024 14:52-0400 Body weight 140.62 kg Pato Avelar DPM Work Phone: [facility] 08-02-2024 14:52-0400 Diastolic blood pressure 79 mm[Hg] Pato Avelar DPM Work Phone: [facility] 08-02-2024 14:52-0400 Heart rate 82 /min Pato Avelar DPM Work Phone: [facility] 08-02-2024 14:52-0400 Systolic blood pressure 127 mm[Hg] Pato Avelar DPM Work Phone: [facility] 07-24-2024 14:58-0400 Body height 157.5 cm Jaime Biedenbach DO Work Phone: [facility] 07-24-2024 14:58-0400 Body mass index (BMI) [Ratio] 56.7 kg/m2 Jaime Biedenbach DO Work Phone: [facility] 07-24-2024 14:58-0400 Body weight 140.62 kg Jaime Biedenbach DO Work Phone: [facility] 05-16-2024 15:25-0400 Diastolic blood pressure 70 mm[Hg] FITNESS TEACHER-C Monique Lien Work Phone: [facility] 05-16-2024 15:25-0400 Heart rate 80 /min FITNESS TEACHER-C Monique Lien Work Phone: [facility] 05-16-2024 15:25-0400 Respiratory rate 22 /min [employer] TEACHER-C Monique Lien Work Phone: [facility] 05-16-2024 15:25-0400 SaO2% (BldA) [Mass fraction] 94 % [employer] TEACHER-C Monique Lien Work Phone: [facility] 05-16-2024 15:25-0400 Systolic blood pressure 124 mm[Hg] FITNESS TEACHER-C Monique Emmanuel Work Phone: [facility] 05-16-2024 12:57-0400 Body temperature 98.6 [degF] FITNESS TEACHER-C Monique Emmanuel Work Phone: [facility] 05-16-2024 12:57-0400 Inhaled oxygen flow rate 6 L/min [employer] TEACHER-C Monique Emmanuel Work Phone: [facility] 05-16-2024 10:38-0400 Body mass index (BMI) [Ratio] 56.5 kg/m2 [employer] TE[employer]ER[employer] Monique Emmanuel Work Phone: [facility] 05-16-2024 10:31-0400 Body height 157.48 cm FITNESS TEACHER-C Monique Emmanuel Work Phone: [facility] 05-16-2024 10:31-0400 Body weight 140.16 kg FITNESS TEACHER-C Monique Emmanuel Work Phone: [facility] 04-25-2024 13:27-0400 Diastolic blood pressure 85 mm[Hg] Pato Avelar [facility] 04-25-2024 13:27-0400 Heart rate 64 /min Pato Avelar [facility] 04-25-2024 13:27-0400 Mean blood pressure 103 mm[Hg] Pato Avelar [facility] 04-25-2024 13:27-0400 Systolic blood pressure 139 mm[Hg] Pato Avelar [facility] 04-25-2024 13:26-0400 Heart rate 65 /min Pato Avlear [facility] 04-25-2024 13:26-0400 Respiratory rate 16 /min Pato Avelar [facility] 04-25-2024 13:26-0400 SaO2% (BldA) [Mass fraction] 93 % Pato Avelar [facility] 04-25-2024 13:26-0400 Blood Pressure Location Pato Avelar [facility] 04-25-2024 13:26-0400 Body temperature 98.42 [degF] Pato Avelar [facility] 04-25-2024 13:26-0400 Diastolic blood pressure 83 mm[Hg] Pato Avelar [facility] 04-25-2024 13:26-0400 Mean blood pressure 100 mm[Hg] Pato Avelar [facility] 04-25-2024 13:26-0400 Systolic blood pressure 135 mm[Hg] Pato Avelar [facility] 02-27-2024 17:36-0400 Body height 154.94 cm FITNESS TEACHER-C Monique Emmanuel Work Phone: [facility] 02-27-2024 17:36-0400 Body mass index (BMI) [Ratio] 58.4 kg/m2 FITNESS TEACHER-C Monique Emmanuel Work Phone: [facility] 02-27-2024 17:36-0400 Body temperature 97.7 [degF] FITNESS TEACHER-C Monique Emmanuel Work Phone: [facility] 02-27-2024 17:36-0400 Body weight 140.38 kg FITNESS TEACHER-C Monique Whitleymer Work Phone: [facility] 02-27-2024 17:36-0400 Heart rate 87 /min FITNESS TEACHER-C Monique Whitleymer Work Phone: [facility] 02-27-2024 17:36-0400 Respiratory rate 18 /min FITNESS TEACHER-C Monique Lien Work Phone: [facility] 02-27-2024 17:36-0400 SaO2% (BldA) [Mass fraction] 97 % FITNESS TEACHER-C Monique Emmanuel Work Phone: [facility] 03-22-2022 16:45-0400 Body height 154.94 cm Monique Dudley Other [employer] Other 03-22-2022 16:45-0400 Body mass index (BMI) [Ratio] 58.38 kg/m2 Monique Dudley Other [facility] Other 03-22-2022 16:45-0400 Body temperature 97.9 [degF] Monique Dudley Other [facility] Other 03-22-2022 16:45-0400 Body weight 140.16 kg Monique Dudley Other [employer] Other 03-22-2022 16:45-0400 Diastolic blood pressure 93 mm[Hg] Monique Dudley Other [employer] Other 03-22-2022 16:45-0400 Respiratory rate 20 /min Monique Dudley Other [employer] Other 03-22-2022 16:45-0400 SaO2% (BldA) [Mass fraction] 98 % Monique Dudley Other [facility] Other 03-22-2022 16:45-0400 Systolic blood pressure 154 mm[Hg] Monique Octavia Other [employer] Other Encounters Encounter Date Encounter Type Care Provider Facility Start: 2025 End: 2025 ambulatory Monique Emmanuel FITNESS TEACHER-C Work Phone: [facility] Work Phone: Start: 2025 End: 2025 Patient encounter procedure Inge Adler MD -[facility] Cardiology Work Phone: Start: 06-15-2025 End: 06-16-2025 ambulatory Monique Emmanuel Facility:[facility] Start: 06-15-2025 Evaluation and manag ement of inpatient Neo Mclaughlin MD -[facility] Work Phone: Start: 06-15-2025 Non-patient / Non-visit Inge abbott MD -[facility] Cardiology Work Phone: Start: 06-15-2025 observation encounter Monique Spencer marisa Emmanuel FITNESS TEACHER-C Work Phone: [facility] Work Phone: Start: 06-11-2025 End: 06-11-2025 ambulatory MONIQUE EMMANUEL Facility:[facility] Start: 06-11-2025 End: 06-11-2025 Admission to same day surgery center Sean Mata DPM Work Phone: Orthopaedics Comment on above: S/P foot surgery, ri ght (Primary Dx); Chronic pain of right ankle Start: 06-11-2025 End: 06-11-2025 Telemedicine consultation with patient Sean Mata DPM Work Phone: Orthopaedics Start: 06-06-2025 ambulatory MONIQUE Palmer LIEN Facilit y:[facility] Start: 06-06-2025 End: 06-06-2025 Subsequent hospital visit by physician Mri [facility] Electra (Lg Bore/1.5t) Radiology MRI Comment on above: [...] Start: 05-16-2025 End: 05-16-2025 ambulatory MONIQUEGISSELLE EMMANUEL Facility:[facility] Start: 05-06-2025 End: 05-06-2025 Patient encounter procedure Cast Tech Joi Work Phone: Orthopaedics Comment on above: S/P foot surgery, ri ght (Primary Dx) Start: 05-06-2025 End: 05-06-2025 ambulatory [facility]IQUE [facility] Facility:[facility] Start: 05-03-2025 End: 05-03-2025 ambulatory Sean Mata DPM Work Phone: Orthopaedics Start: 05-03-2025 End: 05-03-2025 Patient encounter procedure Sean Mata DPM Work Phone: Orthopaedics Comment on above: Cast Start: 04-25-2025 End: 04-25-2025 Patient encounter procedure Sean Mata DPM Work Phone: Orthopaedics Comment on above: Sinus tarsitis, righ t (Primary Dx) S/P foot surgery, ri ght (Primary Dx) Start: 04-25-2025 End: 04-25-2025 ambulatory [facility] Facility:[facility] Start: 04-16-2025 End: 04-16-2025 ambulatory SEAN MATA Facility:[facility] Start: 03-21-2025 End: 03-21-2025 Office outpatient visit 15 minutes Pato Avelar DPM Work Phone: [facility] Comment on above: Capsulitis of metata rsophalangeal (MTP) joint of right foot (Primary Dx); Type 2 diabetes mellitus without complication, unspecified whether long filler cigar roller machine insulin use Start: 03-21-2025 End: 03-21-2025 ambulatory PATO AVELAR Not Available Start: 03-21-2025 End: 03-21-2025 Bamboo flowsheet Pato Avelar DPM Work Phone: [facility] Start: 03-21-2025 End: 03-21-2025 Bamboo flowsheet Pato Avelar DPM Work Phone: [facility] Start: 03-14-2025 End: 03-14-2025 Subsequent [...] Bamboo flowsheet Pato Avelar DPM Work Phone: [facility] Start: 03-07-2025 End: 03-07-2025 Bamboo flowsheet Pato Avelar DPM Work Phone: [facility] Start: 03-07-2025 End: 03-07-2025 Office outpatient visit 15 minutes Pato Avelar DPM Work Phone: [facility] Comment on above: Capsulitis of metata rsophalangeal (MTP) joint of right foot (Primary Dx) Start: 03-07-2025 End: 03-07-2025 ambulatory PATO AVELAR Not Available Start: 02-20-2025 End: 02-20-2025 Telephone encounter Sean Mata DPM Work Phone: [facility] Comment on above: Patient Update Start: 02-13-2025 [...] [Z98.890] Start: 02-05-2025 End: 02-05-2025 ambulatory [facility] Work Phone: Start: 02-05-2025 End: 02-05-2025 Patient encounter procedure [facility] Work Phone: Start: 01-23-2025 End: 01-23-2025 ambulatory SEAN MATA Facility:[facility] Start: 01-23-2025 End: 01-23-2025 Patient encounter procedure Sean Mata DPM Work Phone: Orthopaedics Comment on above: S/P foot surgery, ri ght (Primary Dx); Accessory navicular bone of right foot S/P foot surgery, ri ght (Primary Dx) Start: 01-23-2025 ambulatory SEAN MATA Facility:[facility] Start: 01-09-2025 End: 01-09-2025 ambulatory SEAN MATA Facility:[facility] Start: 01-09-2025 End: 01-09-2025 Patient [...] Mata DPM Work Phone: [facility] Comment on above: Surgical Followup Start: 12-31-2024 End: 12-31-2024 ambulatory SEAN MATA Facility:[facility] Start: 12-28-2024 End: 12-28-2024 [facility] Work [facility]: [facility] Start: 12-28-2024 End: 12-28-2024 ambulatory MONIQUE EMMANUEL Facility:[facility] Start: 12-28-2024 End: 12-28-2024 Anesthesia consultation [facility] Work Phone: Pre Anesthesia Comment on above: Pre-op evaluation (P rimary Dx); Gastroesophageal reflux disease, unspecified whether esophagitis present; Diabetes mellitus without complication (HCC); BMI 60.0-69.9, adult ([facility]); AQUILES (obstructive sleep apnea) Start: 12-28-2024 Encounter for other preprocedural examination MONIQUE EMMANUEL [facility] Start: 12-28-2024 End: 12-28-2024 Preprocedural examination done [facility] 3 Work Phone: [facility] Work Phone: Start: 12-14-2024 End: 12-14-2024 Orders [...] Mata DPM Work Phone: [facility] Comment on above: Pain (Primary Dx) Start: 11-26-2024 End: 11-26-2024 ambulatory [facility] Start: 10-24-2024 End: 10-24-2024 Postop follow up visit related to original px Pato Avelar DPM Work Phone: [facility] Comment on above: Stress fracture of r ight foot, initial encounter (Primary Dx); Type 2 diabetes mellitus without complication, unspecified whether long filler cigar roller machine insulin use ([facility]); Accessory navicular bone of right foot Start: [...] Bamboo flowsheet Pato Avelar DPM Work Phone: [facility] Start: 09-20-2024 End: 09-20-2024 Bamboo flowsheet Pato Avelar DPM Work Phone: [facility] Start: 09-13-2024 End: 09-13-2024 Postop follow up visit related to original px Pato Avelar DPM Work Phone: [facility] Comment on above: 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); Contracture of right ankle; Type 2 diabetes mellitus without complication, unspecified whether long filler cigar roller machine insulin use (CMS/[facility]) Start: 09-13-2024 End: 09-13-2024 ambulatory PATO AVELAR Not Available Start: 09-07-2024 End: 09-07-2024 Telephone encounter Pato Avelar DPM Work Phone: [facility] Start: 09-05-2024 End: 09-05-2024 Lab Drop off Pato Avelar [facility] Start: 09-05-2024 End: 09-05-2024 ambulatory DPM Pato Avelar Facility:[facility] Start: 08-30-2024 End: 08-30-2024 Office outpatient visit 25 minutes Pato Avelar DPM Work Phone: [facility] Comment on above: 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); Type 2 diabetes mellitus without complication, unspecified whether half-way insulin use (CMS/HCC); Heel spur, left; Plantar fasciitis; Contracture of left ankle; Contracture of right ankle Start: 08-30-2024 End: 08-30-2024 ambulatory PATO AVELAR Not Available Start: 08-30-2024 End: 08-30-2024 Bamboo flowsheet Pato Avelar DPM Work Phone: [facility] Start: 08-30-2024 End: 08-30-2024 Bamboo flowsheet Pato Avelar DPM Work Phone: [facility] Start: 08-02-2024 End: 08-02-2024 Office outpatient visit 15 minutes Pato Avelar DPM Work Phone: [facility] Comment on above: 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); Posterior tibial tendonitis of right leg; Type 2 diabetes mellitus without complication, unspecified whether half-way insulin use ([facility]) Start: 08-02-2024 End: 08-02-2024 ambulatory PATO AVELAR Not Available Start: 08-02-2024 End: 08-02-2024 Bamboo flowsheet Pato Avelar DPM Work Phone: [facility] Start: 08-02-2024 End: 08-02-2024 Bamboo flowsheet Pato Avelar DPM Work Phone: [facility] Start: 07-24-2024 End: 07-24-2024 Office outpatient new 45 minutes Jaime Camargo DO Work Phone: [facility] Comment on above: Arthralgia of left t emporomandibular joint (Primary Dx); Left ear pain; Chronic rhinitis; Fullness in ear, left Start: 07-24-2024 End: 07-24-2024 ambulatory JAIME S BIEDENBACH Not Available Start: 07-24-2024 End: 07-24-2024 Bamboo flowsheet Jaime S Biedandraebach DO Work Phone: [facility] Start: 07-24-2024 End: 07-24-2024 Bamboo flowsheet Jaime S Biyoubach DO Work Phone: [facility] Start: 07-19-2024 End: 07-19-2024 Office outpatient visit 15 minutes Pato Avelar DPM Work Phone: [facility] Comment on above: Posterior tibial ten donitis of right leg (Primary Dx); Accessory navicular bone of left foot; Type 2 diabetes mellitus without complication, unspecified whether long filler cigar roller machine insulin use ([facility]); Accessory navicular bone of right foot Start: [...] 05-16-2024 Admission to same day surgery center FITNESS TEACHER-C Monique Emmanuel Work Phone: [facility] [place] Start: 05-16-2024 End: 05-16-2024 ambulatory FITNESS TEACHER-C Monique Emmanuel Work Phone: [facility] Work Phone: Start: 05-03-2024 End: 05-03-2024 ambulatory PATO AVELAR Not Available Start: 04-25-2024 ambulatory Pato Avelar Facili ty:[facility] Start: 04-25-2024 End: 04-25-2024 ambulatory DPM Pato Avelar Facility:[facility] Start: 04-25-2024 End: 04-25-2024 Patient encounter procedure Pato Avelar [facility] Start: 04-16-2024 End: 05-10-2024 Pre-admission assessment Pato Avelar [facility] Start: 04-12-2024 End: 04-12-2024 ambulatory PATO AVELAR Not Available Start: 03-29-2024 End: 03-29-2024 ambulatory PATO AVELAR Not Available Start: 02-27-2024 End: 02-27-2024 ambulatory FITNESS TEACHER-C Monique Emmanuel Work Phone: [facility] Work Phone: Start: 02-27-2024 End: 02-27-2024 Patient encounter procedure FITNESS TEACHER-C Monique Emmanuel Work Phone: [facility] Work Phone: [...] medical examination without abnormal findings MONIQUE EMMANUEL [facility] Start: 08-18-2022 End: 08-19-2022 ambulatory MONIQUE EMMANUEL Facility:[facility] Start: 08-18-2022 End: 08-19-2022 Encounter for general adult medical examination without abnormal findings MONIQUE EMMANUEL Facility:[facility] Start: 06-01-2022 End: 06-01-[address] WESTLEY JHA Facility: Start: 03-22-2022 End: 03-22-2022 ambulatory Monique Dudley Other [employer] Other Start: 03-22-2022 Office outpatient vi sit 15 minutes Monique Dudley [facility] Procedures Date Procedure Procedure Detail Performing Clinician Start: 06-14-2025 Plain chest X-ray Shruti Emmanuel FITNESS TEACHER-C Work Phone: Start: 06-06-2025 Mri any jt [...] Esperanza DPM Work Phone: Start: 05-16-2024 Debridement FITNESS TEACHER-C Shruti Emmanuel Work Phone: Start: 05-16-2024 X-ray of left foot FITNESS TEACHER-C Monique Emmanuel Work Phone: Start: 02-27-2024 Plain X-ray of right shoulder FITNESS TEACHER-C Monique Emmanuel Work Phone: Cholecystectomy Pato pulliam Plan of Treatment Date Care Activity Detail Author Start: 07-06-2034 Urine microalbumin profile DTaP,Tdap,Td Vaccine (7 - Td or Tdap) [facility] Start: 07-29-2025 Influenza vaccination [facility] Start: 06-16-2025 [facility] Start: 06-15-2025 Sleep disorder assessment [facility] Start: 06-15-2025 End: 06-15-2025 [facility] Start: 06-15-2025 Referral to director dietetics department [facility] Start: 06-15-2025 Hospital admission [facility] Start: 06-11-2025 End: 06-11-2025 Patient encounter procedure 06/11/2025 9:45 AM EDT Office Visit Orthopaedics [address] [place] [address] Sean Mata DPM [address] [place] [address] F/U, 3 weeks Orthopaedics Comment on above: F/U, 3 weeks Start: 06-06-2025 End: 06-06-2025 Patient encounter procedure 06/06/2025 8:00 AM EDT Appointment Radiology MRI [address] [place] [place] [address] right ankle Radiology MRI Comment on above: right ankle Start: 05-16-2025 End: 05-16-2025 Patient encounter procedure Orthopaedics Comment on above: right foot F/U, 3 weeks Start: 03-21-2025 End: 03-21-2025 Patient encounter procedure 03/21/2025 2:20 PM EDT Office Visit [facility] [address] [facility] [address] [place] [address] Pato Avelar DPM [address] [facility] [address] [place] [address] Capsulitis of metatarsophalangeal (MTP) joint of right foot (Primary Dx); Type 2 diabetes mellitus without complication, unspecified whether long filler cigar roller machine insulin use [facility] Comment on above: Capsulitis of metatarsophalangeal (MTP) joint of right foot (Primary Dx); Type 2 diabetes mellitus without complication, unspecified whether half-way insulin use Start: 03-14-2025 End: 03-14-2025 Patient encounter procedure 03/14/2025 3:45 PM EDT Office Visit Orthopaedics [address] [place] [address] [place], DPM [address] [place] [address] Post op right foot, SX 12/31/24 Orthopaedics Comment on above: Post op right foot, SX 12/31/24 Start: 03-07-2025 End: 03-07-2025 Patient encounter procedure 03/07/2025 9:00 AM EDT Office Visit [facility] [address] [facility] [address] [place] [address] Pato Avelar, SHITAL [address] [facility] [address] [place] [address] Arrived [facility] Comment on above: Arrived Start: 02-13-2025 End: 02-13-2025 Patient encounter procedure Orthopaedics Comment on above: Post op right foot, SX 12/31/24 Start: 01-23-2025 End: 01-23-2025 Patient encounter procedure Orthopaedics Comment on above: Post op right foot, SX 12/31/24 Right Foot Start: 01-09-2025 End: 01-09-2025 Patient encounter procedure 01/09/2025 10:15 AM EST Office Visit Orthopaedics [address] [place] [address] Sean Mata, DPM [address] [place] [address] Post op right foot, SX 12/31/24 Orthopaedics Comment on above: Post op right foot, SX 12/31/24 Start: 12-31-2024 End: 12-31-2024 Admission to same day surgery center 12/31/2024 1:30 PM EST - 12/31/2024 3:30 PM EST Surgery Ambulatory Surgery [address] [place] [address] Sean Mata, DPM [address] [place] [address] RECONSTRUCTION POSTERIOR TIBIAL TENDON W/EXCISION OF ACCESSORY TARSAL NAVICULAR BONE Ambulatory Surgery Comment on above: RECONSTRUCTION POSTERIOR TIBIAL TENDON W /EXCISION OF ACCESSORY TARSAL NAVICULAR BONE Start: 12-31-2024 End: 12-31-2024 Rcnstj pst tibl tdn w/exc accessory tarsl navclr RECONSTRUCTION POSTERIOR TIBIAL TENDON W/EXCISION OF ACCESSORY TARSAL NAVICULAR BONE Accessory navicular bone of right foot 12/31/2024 1:30 PM EST [facility] Start: 12-31-2024 Subsequent hospital visit by physician 12/31/2024 1:30 PM EST Hospital Encounter Ambulatory Surgery [address] [place] [address] Sean Mata, DPM [address] [place] [address] 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] Ambulatory Surgery Comment on above: Accessory navicular bone of right foot [ Q74.2] Start: 12-31-2024 End: 12-31-2024 Admission to same day surgery center 12/31/2024 7:30 AM EST - 12/31/2024 9:25 AM EST Surgery Ambulatory Surgery [address] [place] [address] Sean Mata, DPM [address] [place] [address] RECONSTRUCTION POSTERIOR TIBIAL TENDON W/EXCISION OF ACCESSORY TARSAL NAVICULAR BONE Ambulatory Surgery Comment on above: RECONSTRUCTION POSTERIOR TIBIAL TENDON W /EXCISION OF ACCESSORY TARSAL NAVICULAR BONE Start: 12-31-2024 End: 12-31-2024 Anesthesia consultation 12/31/2024 7:30 AM EST Anesthesia Event Ambulatory Surgery [address] [place] [address] [place] [address] [place] [address] Ambulatory Surgery Start: 12-31-2024 End: 12-31-2024 Rcnstj pst tibl tdn w/exc accessory tarsl navclr RECONSTRUCTION POSTERIOR TIBIAL TENDON W/EXCISION OF ACCESSORY TARSAL NAVICULAR BONE Accessory navicular bone of right foot 12/31/2024 7:30 AM EST [facility] Start: 12-31-2024 Subsequent hospital visit by physician 12/31/2024 7:30 AM EST Hospital Encounter Ambulatory Surgery [address] [facility] [place] [address] Sean M[place], DPM [address] [place] [address] 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] Ambulatory Surgery Comment on above: Accessory navicular bone of right foot [ Q74.2] Start: 12-28-2024 End: 12-28-2024 Anesthesia consultation 12/28/2024 10:10 AM EST PAT Pre Anesthesia [address] [place] [address] PACC right foot, SX 12/31/24 Pre Anesthesia Comment on above: PACC right foot, SX 12/31/24 Start: 11-01-2024 End: 11-01-2024 Patient encounter procedure 11/01/2024 4:20 PM EST Office Visit [facility] [address] [phone] Pato Avelar DPM [address] [address] [facility] Start: 10-24-2024 End: 10-24-2024 Patient encounter procedure 10/24/2024 2:40 PM EST Office Visit [facility] [address] [place] [phone] Pato Avelar DPM [address] [address] Stress fracture of right foot, initial encounter (Primary Dx); Type 2 diabetes mellitus without complication, unspecified whether half-way insulin use ([facility]) [facility] Comment on above: Stress fracture of right foot, initial e ncounter (Primary Dx); Type 2 diabetes mellitus without complication, unspecified whether half-way insulin use (CMS/HCC) Start: 10-11-2024 Hepatitis B Vaccine (3 of 3 - 3-dose series) Hepatitis B Vaccine (3 of 3 - 3-dose series) [facility] Start: 10-04-2024 End: 10-04-2024 Patient encounter procedure 10/04/2024 2:40 PM EST Office Visit [facility] [address] [facility] [address] [place] [address] Pato Avelar, CALLIEM [address] [address] 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); Contracture of right ankle [facility] Comment on above: Accessory navicular bone of right foot ( Primary Dx); Contracture of right ankle Start: 09-20-2024 End: 09-20-2024 Patient encounter procedure 09/20/2024 2:40 PM EDT Office Visit [facility] [address] [facility] [address] [place] [address] Pato Avelar DPM [address] [address] 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); Contracture of right ankle [facility] Comment on above: Accessory navicular bone of right foot ( Primary Dx); Contracture of right ankle Start: 09-13-2024 End: 09-13-2024 Patient encounter procedure 09/13/2024 3:20 PM EDT Office Visit [facility] [address] [facility] [address] [place] [address] Pato Avelar DPM [address] [address] [facility] Start: 09-12-2024 End: 09-12-2024 Patient encounter procedure 09/12/2024 3:00 PM EDT Office Visit [facility] [address] [place] [address] Pato Avelar DPM [address] [address] [facility] Start: 09-05-2024 End: 09-05-2024 Patient encounter procedure 09/05/2024 7:30 AM EDT Procedure Visit [facility] Pato Avelar DPM [address] [address] [facility] Start: 08-30-2024 End: 08-30-2024 Patient encounter procedure 08/30/2024 2:50 PM EDT Office Visit [facility] [address] [place] [phone] Pato Avelar DPM [address] [address] 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); Type 2 diabetes mellitus without complication, unspecified whether half-way insulin use ([facility]) [facility] Comment on above: Accessory navicular bone of right foot ( Primary Dx); Type 2 diabetes mellitus without complication, unspecified whether long filler cigar roller machine insulin use ([facility]) Start: 08-02-2024 End: 08-02-2024 Patient encounter procedure [facility] Comment on above: Accessory navicular bone of right foot ( Primary Dx); Posterior tibial tendonitis of right leg; Type 2 diabetes mellitus without complication, unspecified whether long filler cigar roller machine insulin use ([facility]) Start: 07-29-2024 Covid-19 Vaccine ( season) Covid-19 Vaccine ( season) [facility] Start: 07-29-2024 Influenza vaccination Influenza Vaccine (#1) [facility] Start: 07-24-2024 End: 07-24-2024 Patient encounter procedure [facility] Comment on above: Arrived Start: 07-19-2024 End: 07-19-2024 Patient encounter procedure 07/19/2024 4:00 PM EDT Office Visit [facility] [address] [place] [phone] Pato Avelar DPM [address] [address] Accessory navicular bone of left foot (Primary Dx); Type 2 diabetes mellitus without complication, unspecified whether long filler cigar roller machine insulin use ([facility]) [facility] Comment on above: Accessory navicular bone of left foot (P rimary Dx); Type 2 diabetes mellitus without complication, unspecified whether half-way insulin use ([facility]/HCC) Start: 05-16-2024 [facility] Start: 05-16-2024 [facility] Start: 2018 Screening for malignant neoplasm of cervix [facility] Start: 2009 Screening for malignant neoplasm of cervix [facility] Start: 2007 Pneumococcal vaccination Pneumococcal Vaccine (1 of 2 - PCV) [facility] Start: 2007 Urine screening for protein Diabetes: Urine Protein Screening [facility] Start: 2006 Annual PCP Team Chronic Disease Visit Annual PCP Team Chronic Disease Visit [facility] Start: 2006 Anxiety Screening Anxiety Screening [facility] [facility] Start: 2006 Depression Screening Depression Screening [facility] Start: 2006 Hepatitis B surface antibody level LDL Cholesterol [facility] Start: 2006 Hepatitis C screening Hepatitis C Screening [facility] Start: 2006 HIV screening HIV Screening [facility] Start: 1999 Urine microalbumin profile DTaP,Tdap,Td Vaccine (6 - Tdap) [facility] Start: 1998 Diabetic foot examination Diabetic Foot Exam [facility] ic Start: 1998 Glaucoma screening [facility] Start: 1998 Hepatitis B screening Urine Albumin:Creatinine Ratio [facility] Start: 1993 Hemoglobin A1c measurement HbA1C [facility] Start: 1988 Hemoglobin A1c measurement Diabetes: Hemoglobin A1C [facility] Anion gap measurement [facility] Application short le g cast walking/ambulatory CAST DAVID LEG, SHORT(WALKING) Procedures Routine Sinus tarsitis, right Ordered: 04/25/2025 [facility] Work Phone: Comment on above: Ordered: 04/25/2025 Basophils [#/volume] in Blood by Automated count [facility] Basophils/100 leukoc ytes in Blood by Automated count [facility] Calculated LDL kesha sterol level [facility] Cholesterol.total/Ch oleste rol in HDL [Mass Ratio] in Serum or Plasma [facility] Eosinophils/100 leuk ocytes in Blood by Automated count [facility] Erythrocyte distribu tion width [Ratio] by Automated count [facility] Erythrocytes [#/volu me] in Blood [facility] Glucose [Mass/volume ] in Serum or Plasma [facility] Glucose measurement estimated from glycated hemoglobin [facility] Hematocrit [Volume Fraction] of Blood [facility] Hemoglobin [Mass/vol ume] in Blood [facility] Hemoglobin A1c/Hemoglobin.total in Blood [facility] Leukocytes [#/volume ] corrected for nucleated erythrocytes in Blood by Automated coun [facility] Leukocytes [#/volume ] in Blood [facility] Lymphocytes [#/volum e] in Blood by Automated count [facility] Lymphocytes/100 leuk ocytes in Blood by Automated count [facility] MCH [Entitic mass] b y Automated count [facility] MCHC [Mass/volume] b y Automated count [facility] MCV [Entitic volume] by Automated count [facility] Monocytes [#/volume] in Blood by Automated count [facility] Monocytes/100 leukoc ytes in Blood by Automated count [facility] End: 06-15-2026 MR Ankle - right WO contrast MRI ANKLE WO IVCON RIGHT Radiology Routine Chronic pain of right ankle 1 Occurrences starting 05/16/2025 until 06/15/2026 [facility] Work Phone: Comment on above: 1 Occurrences starting 05/16/2025 until 06/15/2026 MR Foot - right WO contrast MR foot right wo IV contrast Imaging Routine Stress fracture of right foot, initial encounter Ordered: 10/04/2024 [facility] Work Phone: Comment on above: Ordered: 10/04/2024 Neutrophils [#/volum e] in Blood by Automated count [facility] Neutrophils/100 leuk ocytes in Blood by Automated count [facility] Nucleated erythrocyt es [Presence] in Blood by Automated count [facility] Patient Education Know your Meds [facility] Work Phone: Patient referral [facility] Work Phone: Platelet mean volume [Entitic volume] in Blood by Automated count [facility] Platelets [#/volume] in Blood [facility] VLDL cholesterol measurement [facility] XR Foot - right 3 Views XR foot 3+ views right Imaging Routine Accessory navicular bone of right foot 09/13/2024 3:04 PM EDT [facility] Work Phone: XR Foot - right 3 Views XR foot 3+ views right Imaging Routine Accessory navicular bone of right foot 08/02/2024 3:28 PM EDT [facility] Work Phone: End: 02-02-2026 XR Foot - right AP and Lateral and oblique XR FOOT GENERAL 3V AP/LAT/OBL RIGHT Radiology Routine S/P foot surgery, right 1 Occurrences starting 01/03/2025 until 02/02/2026 [facility] Work Phone: Comment on above: 1 Occurrences starting 01/03/2025 until 02/02/2026 End: 02-10-2026 XR Foot - right AP and Lateral and oblique XR FOOT GENERAL 3V AP/LAT/OBL RIGHT Radiology Routine S/P foot surgery, right 1 Occurrences starting 01/16/2025 until 02/10/2026 [facility] Work Phone: Comment on above: 1 Occurrences starting 01/16/2025 until 02/10/2026 End: 04-07-2026 XR Foot - right AP and Lateral and oblique XR FOOT GENERAL 3V AP/LAT/OBL RIGHT Radiology Routine S/P foot surgery, right 1 Occurrences starting 03/14/2025 until 04/07/2026 [facility] Work Phone: Comment on above: 1 Occurrences starting 03/14/2025 until 04/07/2026 Immunizations Immunization Date Immunization Notes Care Provider Tony teague 07-19-2002 hepatitis B vaccine, pediatric or pediatric/adolescent dosage Jaime Camargo DO Work Phone: [facility] 07-19-2002 measles, mumps and rubella virus vaccine Jaime Camargo DO Work Phone: [facility] 04-16-1993 diphtheria, tetanus toxoids and pertussis vaccine Jaime Camargo DO Work Phone: [facility] 04-16-1993 trivalent poliovirus vaccine, live, oral Jaime Camargo DO Work Phone: [facility] 05-18-1990 haemophilus influenz ae type b vaccine, conjugate unspecified formulation Jaime Camargo DO Work Phone: [facility] 10-13-1989 diphtheria, tetanus toxoids and pertussis vaccine Jaime Camargo DO Work Phone: [facility] 10-13-1989 measles, mumps and rubella virus vaccine Jaime Camargo DO Work Phone: [facility] 10-13-1989 trivalent poliovirus vaccine, live, oral Jaime Camargo DO Work Phone: [facility] 05-11-1989 diphtheria, tetanus toxoids and pertussis vaccine Jaime Camargo DO Work Phone: [facility] 03-17-1989 diphtheria, tetanus toxoids and pertussis vaccine Jaime Camargo DO Work Phone: [facility] 03-17-1989 trivalent poliovirus vaccine, live, oral Jaime Camargo DO Work Phone: [facility] 1988 diphtheria, tetanus toxoids and pertussis vaccine Jaime Camargo DO Work Phone: [facility] 1988 trivalent poliovirus vaccine, live, oral Jaime Camargo DO Work Phone: [facility] Payers Date Payer Category Payer Self-pay [id number] 2024 Unknown [id number] 2020 Blue [employer] Blue Shield [id number] [id number] 2020 Unknown [id number] 1988 Unknown [id number] 2.16.84 0.1.680067.3.579.2.593 1988 Unknown [id number] 2.16.84 0.1.264154.3.579.2.593 1988 Unknown [id number] 2.16.84 0.1.260558.3.579.2.593 1988 Unknown [id number] 2.16.84 0.1.676886.3.579.2.593 1988 Unknown [id number] 2.16.84 0.1.314834.3.579.2.593 1988 Unknown [id number] 2.16.84 0.1.789346.3.579.2.593 1988 Unknown [id number] 2.16.84 0.1.199528.3.579.2.593 1988 Unknown [id number] 2.16.84 0.1.528098.3.579.2.593 1988 Unknown [id number] 2.16.8 40.1.860673.3.579.2.727 1988 Unknown [id number] 2.16.84 0.1.840709.3.579.2.1259 1988 Unknown [id number] 2.16.84 0.1.450051.3.579.2.1259 1988 Unknown [id number] 2.16.84 0.1.474402.3.579.2.1259 1988 Unknown [id number] 2.16.84 0.1.157397.3.579.2.1259 1988 Unknown [id number] 2.16.84 0.1.264875.3.579.2.1258 1988 Unknown [id number] 2.16.84 0.1.621873.3.579.2.1258 1988 Unknown [id number] 2.16.8 40.1.229857.3.579.2.727 1988 Unknown [id number] 2.16.84 0.1.139443.3.579.2.1258 1988 Unknown [id number] 2.16.84 0.1.548711.3.579.2.1258 1988 Unknown [id number] 2.16.84 0.1.723894.3.579.2.1258 1988 Unknown [id number] 2.16.84 0.1.988544.3.579.2.1258 1988 Unknown [id number] 2.16.84 0.1.778920.3.579.2.1258 1988 Unknown [id number] 2.16.84 0.1.150957.3.579.2.1258 1988 Unknown [id number] 2.16.84 0.1.125445.3.579.2.1258 1988 Unknown [id number] 2.16.84 0.1.925638.3.579.2.1258 1988 Unknown [id number] 2.16.84 0.1.456008.3.579.2.1258 1988 Unknown [id number] 2.16.84 0.1.952211.3.579.2.1258 1988 Unknown [id number] 2.16.84 0.1.407990.3.579.2.1258 1988 Unknown [id number] 2.16.84 0.1.846014.3.579.2.1259 1959 Blue Cross Blue Shield [id number] 2.16.840.1.750254.19 Unknown [id number] 2.16.8 40.1.256740.3.579.2.531 Social History Date Type Detail Facility Unknown if ever smoked [employer] Other Start: 08-02-2024 End: 12-12-2024 Sex Assigned At [facility] Start: 10-25-2018 End: 2025 Tobacco smoking status NHIS Never smoked tobacco (finding) [facility] Start: 1990 Sex Assigned At Female [facility] Tobacco smoking status No Smoking Status Entered [facility] Start: 03-29-2024 End: 12-28-2024 Tobacco use and exposure Smokeless tobacco non-user [facility] Start: 08-02-2024 End: 12-31-2024 Alcoholic beverage intake Lifetime non-drinker (finding) [facility] Start: 08-02-2024 End: 12-12-2024 History of Social function [facility] Start: 1990 Sex assigned at Not on file [facility] Tobacco smoking status WVIS Tobacco smoking consumption unknown [facility] Adult Depression Screening Assessment 2 [facility] Start: 02-05-2025 Sex Female (finding) [facility] NEGATED: Highlighted rowStart: NINF History of tobacco use Passive smoker [facility] Medical Equipment Procedure Code Equipment Code Equipment Origin al Text Equipment Identifier Dates Wound debridement Tendon/ligamen t bone anchor, non-bioabsorbable ([id number] [facility] Start: 05-16-2024 [place] [employer] Fiberwire 1 .5 [place] 2 Joselin Biocomposite 26.2mm Suture - [id number] Start: 12-31-2024 Blood Sugar Diagnostic (Onetouch Ultra Test) strip Start: 02-05-2025 Blood Sugar Diagnostic (Onetouch Ultra Test) strip Start: 02-05-2025 Blood Sugar Diagnostic (Onetouch Ultra Test) strip Start: 02-05-2025 Blood Sugar Diagnostic (Onetouch Ultra Test) strip Start: 02-05-2025 Goals Date Patient Goal Desired Activity /State Functional Status Date Assessment Result Facility 04-25-2024 Functional Status No [facility] Clinical Notes 03-22-2022 to 06-15-2025 Note Date & Type Note Facility 06-15-2025 Evaluation note Diagnosis Onset Date Resolution Chest pain acute June 15 1:59am Diabetes mellitus acute June 152024 1:59am [facility] Work Phone: 1(334) 865-718907-19-2025 Evaluation note* Diagnosis Onset Date Resolution Status Admit Date Diabetes mellitus acute June 152024 1:59am Chest pain resolved June 15 1:59am [facility] Work Phone: 1(203) 958-621207-15-2025 NoteHNO ID: [id number] Author: SEAN MATA DPM Service: ? Author Type: Physician Type: Progress Notes Filed: 06/11/2025 10:13 Note Text: PRIMARY SERVICE: [facility] 9:48 AM through 10:18 AM [...] tablet by mouth once daily. DEXCOM G7 ROLL ICER misc as directed. DEXCOM G7 SENSOR eduin [...] the deltoid and spring ligaments as described. Unpaid Intern: [facility] Transcribe Date/Time: Jun 06 2025 11:37A Dictated by : RADHA TYSON MD This examination was interpreted and the report reviewed and electronically signed by: KATIANA FLORES MD on Jun 06 2025 2:13PM EST Results-Findings * * *Final Report* * * DATE OF EXAM: Jun 06 2025 8:43AM [facility] 0164 - MRI ANKLE WO IVCON [...] tibiofibular ligament: I (more content not included)... [facility]07-15-2025 History of Present illness Narrative* Sean Mata DPM - 06/11/2025 10:08 AM EDT Images from the original note were not included. PRIMARY SERVICE: [facility] 9:48 AM through 10:18 AM [...] tablet by mouth once daily. DEXCOM G7 ROLL ICER misc as directed. DEXCOM G7 SENSOR eduin [...] the deltoid and spring ligaments as described. Unpaid Intern: [facility] Transcribe Date/Time: Jun 06 2025 11:37A Dictated by : RADHA TYSON MD This examination was interpreted and the report reviewed and electronically signed by: KATIANA FLORES MD on Jun 06 2025 2:13PM EST Results-Findings * * *Final Report* * * DATE OF EXAM: Jun 06 2025 8:43AM [facility] 0164 - MRI ANKLE WO IVCON [...] History MRI ANKLE WO IVCON RIGHT (Order #[id number]) on 06/06/2025 - Order Result History Report [...] of SERVICE: 10:08 AM documented in this encounterCleveland [facility]07-10-2025 History of Present illness Narrative* Mary Alvarez [...] PATIENT PRESENTS WITH AN IMPLANTABLE OR ATTACHED EXECUTIVE ASSOCIATE: Yes [employer]com RADIOLOGY DEPARTMENT: MR; Exam(s) Completed: Lower MSK: Ankle/Hind Foot, right . Aromatherapy Administered: No PERIPHERAL IV DATA: Not applicable SIGNED BY: MARIBELL Lomax) June 06, 2025 8:17 AM documented in this encounterCleveland Clinic Foundation07-10-2025 NoteHNO ID: [id number] Author: MARY ALVAREZ RT(R) Service: ? Author [...] PATIENT PRESENTS WITH AN IMPLANTABLE OR ATTACHED EXECUTIVE ASSOCIATE: Yes [facility] RADIOLOGY DEPARTMENT: MR; Exam(s) Completed: Lower MSK: Ankle/Hind Foot, right . Aromatherapy Administered: No PERIPHERAL IV DATA: Not applicable SIGNED BY: RT Dami(R) June 06, 2025 8:17 [facility]06-20-2025 Telephone encounter Note* Telephone Encounter - Natalia Barrios CT - 05/17/2025 12:00 PM EDT Patients boot in no longer inflating or button is broken. Her mother will be coming in this way next week. She will bring the boot to change it out. Patient lives in [place]. [facility]06-20-2025 Miscellaneous Notes* Telephone Encounter - Natalia Barrios CT - 05/17/2025 12:00 PM EDT Patients boot in no longer inflating or button is broken. Her mother will be coming in this way next week. She will bring the boot to change it out. Patient lives in [place]. documented in this encounterCleveland Clinic [facility]06-19-2025 NoteHNO ID: [id number] Author: BEVERLY DOBSON Cast Tech Service: ? Author Type: Client Strategist Type: Progress Notes Filed: 05/16/2025 15:24 Note Text: Patient in today for scheduled appointment. Cast removed. Right leg cleansed with Wound wash, sea-clens and debrisoft. Examined by Dr. Mata. Patient to go int a boot she has at home. Beverly Dobson [facility]06-19-2025 History of Present illness Narrative* Beverly Dobson Cast Tech - 05/16/2025 3:23 PM EDT Patient in today for scheduled appointment. Cast removed. Right leg cleansed with Wound wash, sea-clens and debrisoft. Examined by Dr. Mata. Patient to go int a boot she has at home. Beverly Robi, CT documented in this encounterCleveland Clinic Foundation06-19-2025 NoteHNO ID: [id number] Author: SEAN MATA DPM Service: ? Author Type: Physician Type: Progress Notes Filed: 05/16/2025 14:44 Note Text: Medical intake sheet from May 16, 2025 , was updated by patient, reviewed, and was made part of the patient's chart. Sean Mata DPM PRIMARY SERVICE: [facility] SUBJECTIVE: Patient is seen today [...] tablet by mouth once daily. DEXCOM G7 ROLL ICER misc as directed. DEXCOM G7 SENSOR eduin [...] and further discuss treatment options SIGNATURE: [facility] History of Present illness Narrative* Sean Mata DPM - 05/16/2025 2:41 PM EDT Medical intake sheet from May 16, 2025 , was updated by patient, reviewed, and was made part of the patient's chart. Sean Mata DPM PRIMARY SERVICE: [facility] SUBJECTIVE: Patient is seen today [...] tablet by mouth once daily. DEXCOM G7 ROLL ICER misc as directed. DEXCOM G7 SENSOR eduin [...] SIGNATURE: Sean Mata DPM documented in this encounterCleveland Clinic Foundation06-09-2025 NoteHNO ID: [id number] Author: BEVERLY DOBSON Cast Tech Service: ? Author Type: Client Strategist Type: Progress Notes Filed: 05/06/2025 16:02 Note [...] doctor during next scheduled appointment/prn. Beverly Dobson [facility]06-09-2025 History of Present illness Narrative* Beverly Dobson [...] appointment/prn. Beverly Dobson, CT documented in this encounterCleveland Clinic Foundation06-06-2025 Telephone encounter Note * Telephone Encounter - Staci Powers - 05/03/2025 2:59 PM EDT Patient called the office to schedule a cast change as suggested by Lashon. No order placed, unfortunately due to the time restraints we had to schedule for Tuesday. [facility]06-06-2025 Miscellaneous Notes* Telephone Encounter - Staci Powers - 05/03/2025 2:59 PM EDT Patient called the office to schedule a cast change as suggested by Lashon. No order placed, unfortunately due to the time restraints we had to schedule for Tuesday. documented in this encounterCleveland Clinic Foundation05-29-2025 NoteHNO ID: [id number] Author: BEVERLY DOBSON Cast Tech Service: ? Author Type: Client Strategist Type: Progress Notes Filed: 04/25/2025 15:14 Note Text: Applied A Short Leg Weightbearing Cast to the right leg. Instructions on cast care given. A medium Cast Shoe was dispensed. Will f/u as scheduled/prn. MEE [facility]WVUM[facility]05-29-2025 History of Present illness Narrative* Beverly Dobson Cast Tech - 04/25/2025 3:13 PM EDT Applied A Short Leg Weightbearing Cast to the right leg. Instructions on cast care given. A medium Cast Shoe was dispensed. Will f/u as scheduled/prn. HAYES Johnson documented in this encounterCleveland Clinic Foundation05-29-2025 NoteHNO ID: [id number] Author: SEAN MATA DPM Service: ? Author Type: Physician Type: Progress Notes Filed: 04/25/2025 14:38 Note Text: PRIMARY SERVICE: [facility] SUBJECTIVE: Patient is seen today [...] by mouth once daily. - DEXCOM G7 ROLL ICER misc as directed. - DEXCOM G7 SENSOR [...] these instructions. Informed Consent Consent Obtained: Verbal [place] Protocol A moment to CARE was completed. [...] of SERVICE: 04/25/2025 TIME of SERVICE: 2:09 [facility]05-29-2025 History of Present illness Narrative* EsperanzaSean, CALLIEM - 04/25/2025 2:09 PM EDT Associated Order(s): Additional Injections: R subtalar joint Post-Procedure Diagnose(s): Sinus tarsitis, right Images from the original note were not included. PRIMARY SERVICE: [facility] SUBJECTIVE: Patient is seen today [...] tablet by mouth once daily. DEXCOM G7 ROLL ICER misc as directed. DEXCOM G7 SENSOR eduin [...] these instructions. Informed Consent Consent Obtained: Verbal [place] Protocol A moment to CARE was completed. [...] of SERVICE: 2:09 PM documented in this encounterCleveland Clinic Foundation05-20-2025 NoteHNO ID: [id number] Author: SEAN MATA DPM Service: ? Author Type: Physician Type: Progress Notes Filed: 04/16/2025 14:48 Note Text: PRIMARY SERVICE: [facility] Virtual visit with Zoom: 2:15 [...] tablet by mouth once daily. DEXCOM G7 ROLL ICER misc as directed. DEXCOM G7 SENSOR eduin [...] week for evaluation. Explained I really cannot outer diameter grinder what is going on without examining her clinically to determine the best plan of care. Continue icing and oral ibuprofen in the meantime along with the return to her Aircast cam walker boot. SIGNATURE: Sean Mata DPM DATE of SERVICE: 04/16/2025 TIME of SERVICE: 2:42 [facility]04-24-2025 History of Present illness Narrative* Pato Johnson Valentino, SHITAL - 03/21/2025 2:20 PM EDT Patient: Noel Paul : 1990 PCP: Erich Garcia MD SUBJECTIVE This is a 34 y.o. female that presents today s/p right revisional modified Kidner right foot by Dr Mata at [facility]. Pt denies n/f/v/c and has negative pain [...] History: Past Medical History: Diagnosis Date Diabetes ([facility]) Ear problems GERD (gastroesophageal reflux disease) 2011 [...] 2 diabetes mellitus without complication, unspecified whether half-way insulin use PLAN Continue with physical therapy Patient to return to orthotics Patient to continue with oral anti - inflammatories as needed for pain and recommended OTC medications such as tylenol or Ibuprofen Pato Avelar DPM documented in this encounterThe Rehabilitation [id number] NoteHNO ID: [id number] Author: NATALIA BARRIOS CT Service: ? Author Type: Clinical Client Strategist Type: Progress Notes Filed: 03/14/2025 16:37 Note Text: Dispensed size Medium ASO to right foot.[facility]04-17-2025 History of Present illness Narrative* Natalia Barrios CT - 03/14/2025 4:37 PM EDT Dispensed size Medium ASO to right foot. * Sean Mata DPM - 03/14/2025 3:41 PM EDT PRIMARY SERVICE: [facility] SUBJECTIVE: Patient is seen today [...] needed for up to 10days. DEXCOM G7 ROLL ICER misc as directed. DEXCOM G7 SENSOR eduin [...] SIGNATURE: Sean Mata DPM documented in this encounterCleveland Clinic Foundation04-17-2025 NoteHNO ID: [id number] Author: SEAN MATA DPM Service: ? Author Type: Physician Type: Progress Notes Filed: 03/14/2025 16:01 Note Text: PRIMARY SERVICE: [facility] SUBJECTIVE: Patient is seen today [...] for up to 10 days. DEXCOM G7 ROLL ICER misc as directed. DEXCOM G7 SENSOR eduin [...] ASO ankle brace today SIGNATURE: Sean Mata, [facility]04-17-2025 Note HNO ID: [id number] Author: JOYA DUBOIS RT(Misha) Service: ? Author [...] PATIENT PRESENTS WITH AN IMPLANTABLE OR ATTACHED EXECUTIVE ASSOCIATE: No RADIOLOGY DEPARTMENT: General X-ray: Exam(s) Completed: Lower Extremity X-Ray(s): Foot, Right and Wt. Bearing PERIPHERAL IV DATA: Not applicable SIGNED BY: RT Ezequiel(Misha) March 14, 2025 3:32 [facility]04-17-2025 History of Present illness Narrative* Joya [...] PATIENT PRESENTS WITH AN IMPLANTABLE OR ATTACHED EXECUTIVE ASSOCIATE: No RADIOLOGY DEPARTMENT: General X-ray: Exam(s) Completed: Lower Extremity X- Ray(s): Foot, Right and Wt. Bearing PERIPHERAL IV DATA: Not applicable SIGNED BY: RT Ezequiel(R) March 14, 2025 3:32 PM documented in this encounterCleveland Clinic Foundation04-10-2025 History of Present illness Narrative* Pato Avelar, SHITAL - 03/07/2025 9:00 AM EDT Patient: Noel Paul : 1990 PCP: Erich Garcia MD SUBJECTIVE This is a 34 y.o. female that presents today s/p right revisional modified Kidner right foot by Dr Mata at [facility]. Pt denies n/f/v/c and has negative pain [...] History: Past Medical History: Diagnosis Date Diabetes ([facility]) Ear problems GERD (gastroesophageal reflux disease) 2012 [...] pack Pato Avelar DPM documented in this encounterThe Rehabilitation [id number] Telephone encounter Note* Telephone Encounter - Chris Bhatt OCCA - 02/20/2025 4:21 PM EDT Called and informed staff she may being partial weight bearing. [facility]03-26-2025 Miscellaneous Notes* Telephone Encounter - Chris Bhatt OCCA - 02/20/2025 4:21 PM EDT Called and informed staff she may being partial weight bearing. * Telephone Encounter - Marva Bhardwaj - 02/20/2025 4:06 PM EDT Bonilla from [facility] PT Dept is calling Sean Mata DPM today to request weightbearing guide lines for patient PT CB [phone] ext [phone] FAX [phone] Patient has been identified by name and birthdate. Duration of symptoms: N/A Person calling: caregiver: Call patient at: [phone] (home) [phone] (cell) Was an appointment scheduled: No Closing statement: Results or non-symptom based questions: Thank you for calling [facility], your call will be returned within the next business day. Marva Almeida documented in this encounterCleveland Clinic Foundation03-26-2025 Telephone encounter Note * Telephone Encounter - Marva Bhardwaj - 02/20/2025 4:06 PM EDT Bonilla from [facility] PT Dept is calling Sean Mata DPM today to request weightbearing guide lines for patient PT CB [phone] ext [phone] FAX [phone] Patient has been identified by name and birthdate. Duration of symptoms: N/A Person calling: caregiver: Call patient at: [phone] (home) [phone] (cell) Was an appointment scheduled: No Closing statement: Results or non-symptom based questions: Thank you for calling [facility], your call will be returned within the next business day. Marva Almeida [facility]03-19-2025 NoteHNO ID: [id number] Author: BEVERLY DOBSON Cast Tech Service: ? Author Type: Client Strategist Type: Progress Notes Filed: 02/13/2025 10:15 Note Text: Patient in today for scheduled appointment. Cast removed. Right leg cleansed with Cavilon. Examined by Dr. Mata. Fitted with a medium Short Pneumatic Walker for the right leg. Instructions on application, adjustments and care given. Will f/u as scheduled/prn. Beverly Dobson [facility]03-19-2025 History of Present illness Narrative* Beverly Dobson Cast Tech - 02/13/2025 10:14 AM EDT Patient in today for scheduled appointment. Cast removed. Right leg cleansed with Cavilon. Examinedby Dr. Mata. Fitted with a medium Short Pneumatic Walker for the right leg. Instructions on application, adjustments and care given. Will f/u as scheduled/prn. HAYES Johnson documented in this encounterCleveland Clinic Foundation03-19-2025 NoteHNO ID: [id number] Author: SEAN MATA DPM Service: ? Author Type: Physician Type: Progress Notes Filed: 02/13/2025 10:05 Note Text: PRIMARY SERVICE: [facility] SUBJECTIVE: Patient is seen today [...] up to 10 days. - DEXCOM G7 ROLL ICER misc as directed. - DEXCOM G7 SENSOR [...] made part of the patient's chart. [facility] History of Present illness Narrative* Sean Mata DPM - 02/13/2025 9:44 AM EDT PRIMARY SERVICE: [facility] SUBJECTIVE: Patient is seen today [...] needed for up to 10days. DEXCOM G7 ROLL ICER misc as directed. DEXCOM G7 SENSOR eduin [...] chart. Sean Mata DPM documented in this encounterCleveland Clinic Foundation03-19-2025 NoteHNO ID: [id number] Author: MAURA SHELL RT(Misha) Service: ? Author [...] PATIENT PRESENTS WITH AN IMPLANTABLE OR ATTACHED EXECUTIVE ASSOCIATE: No RADIOLOGY DEPARTMENT: General X-ray: Exam(s) Completed: Lower Extremity X-Ray(s): Foot, Right PERIPHERAL IV DATA: Not applicable SIGNED BY: RT Rickie(R) February 13, 2025 9:23 [facility]03-19-2025 History of Present illness Narrative* Maura Shell [...] PATIENT PRESENTS WITH AN IMPLANTABLE OR ATTACHED EXECUTIVE ASSOCIATE: No RADIOLOGY DEPARTMENT: General X-ray: Exam(s) Completed: Lower Extremity X- Ray(s): Foot, Right PERIPHERAL IV DATA: Not applicable SIGNED BY: RT Rickie(R) February 13, 2025 9:23 AM documented in this encounterCleveland Clinic Foundation02-26-2025 Note* Addendum Note - Natalia Barrios CT - 01/23/2025 12:18 PM ESTAddended by: NATALIA BARRIOS on: 01/23/2025 12:18 PM Modules accepted: Orders [facility]02-26-2025 Miscellaneous Notes* Addendum Note - Natalia Barrios CT - 01/23/2025 12:18 PM ESTAddended by: NATALIA BARRIOS on: 01/23/2025 12:18 PM Modules accepted: Orders documented in this encounterCleveland Clinic Foundation02-26-2025 NoteHNO ID: [id number] Author: BEVERLY DOBSON Cast Tech Service: ? Author Type: Client Strategist Type: Progress Notes Filed: 01/23/2025 11:52 Note Text: Patient in today for scheduled appointment. Cast removed. Right leg cleansed with sea-clens. Examined by Dr. Mata. Applied A Short Leg Nonweightbearing Cast to the right leg. Instructions on cast care given. Will f/u as scheduled/prn. Beverly Dobson [facility]02-26-2025 History of Present illness Narrative* Beverly Dobson Cast Tech - 01/23/2025 11:51 AM EST Patient in today for scheduled appointment. Cast removed. Right leg cleansed with sea-clens. Examined by Dr. Mata. Applied A Short Leg Nonweightbearing Cast to the right leg. Instructions on cast care given. Will f/u as scheduled/prn. HAYES Johnson documented in this encounterCleveland Clinic Foundation02-26-2025 NoteHNO ID: [id number] Author: SEAN MATA DPM Service: ? Author Type: Physician Type: Progress Notes Filed: 01/23/2025 11:47 Note Text: PRIMARY SERVICE: [facility] SUBJECTIVE: Patient is seen today [...] for up to 10 days. DEXCOM G7 ROLL ICER misc as directed. DEXCOM G7 SENSOR eduin [...] and refer to physical therapy. SIGNATURE: [facility] History of Present illness Narrative* Sean Mata DPM - 01/23/2025 10:56 AM EST PRIMARY SERVICE: [facility] SUBJECTIVE: Patient is seen today [...] needed for up to 10days. DEXCOM G7 ROLL ICER misc as directed. DEXCOM G7 SENSOR eduin [...] SIGNATURE: Sean Mata DPM documented in this encounterCleveland Clinic Foundation02-12-2025 NoteHNO ID: [id number] Author: SHAYLEE CONCEPCION MA Service: ? Author Type: Multiskill Operator Type: Progress Notes Filed: 01/09/2025 11:22 [...] will follow up as scheduled or as needed.[facility]02-12-2025 History of Present illness Narrative* Shaylee Concepcion [...] scheduled or as needed. documented in this encounterCleveland Clinic Foundation02-12-2025 NoteHNO ID: [id number] Author: SEAN MATA DPM Service: ? Author Type: Physician Type: Progress Notes Filed: 01/09/2025 10:55 Note Text: PRIMARY SERVICE: [facility] SUBJECTIVE: Patient is seen today [...] for up to 10 days. DEXCOM G7 ROLL ICER misc as directed. DEXCOM G7 SENSOR eduin [...] of SERVICE: 01/09/2025 TIME of SERVICE: 10:52 [facility]02-12-2025 History of Present illness Narrative* Sean Mata DPM - 01/09/2025 10:52 AM EST Images from the original note were not included. PRIMARY SERVICE: [facility] SUBJECTIVE: Patient is seen today [...] needed for up to 10days. DEXCOM G7 ROLL ICER misc as directed. DEXCOM G7 SENSOR eduin [...] of SERVICE: 10:52 AM documented in this encounterCleveland Clinic Foundation02-05-2025 Telephone encounter Note * Telephone Encounter - Sean Mata DPM - 01/02/2025 12:36 PM EST Called patient at [phone] to return call regarding pain management. I spoke with the patient. Advised I sent a prescription over for her electronically for Toradol 10 mg tablets take 2 right away the 1 every 6 hours with food until gone in addition to the Percocet and the Phenergan. Recommend 2 Percocet every 4-6 hours due to her BMI. Sean Mata DPM [facility]02-05-2025 Miscellaneous Notes* Telephone Encounter - eSan Mata DPM - 01/02/2025 12:36 PM EST Called patient at [phone] to return call regarding pain management. I spoke with the patient. Advised I sent a prescription over for her electronically for Toradol 10 mg tablets take 2 right away the 1 every 6 hours with food until gone in addition to the Percocet and the Phenergan. Recommend 2 Percocet every 4-6 hours due to her BMI. Sean Mata DPM documented in this encounterCleveland Clinic Foundation02-03-2025 Miscellaneous Notes* Telephone Encounter - Sean Mata DPM - 12/31/2024 8:26 PM EST Called patient at her Lonnie's cell number at [phone] to check on postop progress. Received voicemail. [...] calling: self Call patient at: at home [phone] (home) [phone] (cell) Was an appointment scheduled: No Closing statement: Results or non-symptom based questions: Thank you for calling [facility], your call will be returned within the next business day. Marva Almeida documented in this encounterCleveland Clinic Foundation02-03-2025 Telephone encounter Note * Telephone Encounter - Sean Mata DPM - 12/31/2024 8:26 PM EST Called patient at her Lonnie's cell number at [phone] to check on postop progress. Received voicemail. Left message that I called. Called patient back at 8:41 PM to same number. Spoke with who said she was doing well without any significant pain or problems at this time. Advised to call if any questions or problems between now and her first scheduled postop visit on December. Sean Mata DPM [facility] Work Phone: 1(980) 848-523002-03-2025 Telephone encounter Note* Telephone Encounter - Karissa Raman MA - 12/31/2024 3:25 PM EST Message has been sent directly to Dr Mata's phone. [facility]02-03-2025 Telephone encounter Note* Telephone Encounter - Marva [...] calling: self Call patient at: at home [phone] (home) [phone] (cell) Was an appointment scheduled: No Closing statement: Results or non-symptom based questions: Thank you for calling [facility], your call will be returned within the next business day. Marva Almeida [facility]02-03-2025 NoteHNO ID: [id number] Author: ESTELLA GIBBONS AA Service: Anesthesiology Author Type: Box Fabricator Type: Anesthesia Procedure Notes Filed: 12/31/2024 09:57 [...] December 31, 2024 TIME: 9:57 AM CSN: [id number]02-03-2025 NoteHNO ID: [id number] Author: ESTELLA GIBBONS AA Service: Anesthesiology Author Type: Box Fabricator Type: Anesthesia Procedure Notes Filed: 12/31/2024 08:20 [...] December 31, 2024 TIME: 8:18 AM CSN: [id number] Health01-31-2025 History and physical note* Ary Rocha APRN.RAIL SWITCHMAN - 12/28/2024 10:10 AM EST Images from the original note were not included. [facility] HISTORY AND PHYSICAL EXAMINATION SERVICE DATE: 12/28/2024 SERVICE TIME: 10:08 AM PRIMARY CARE PHYSICIAN: Monique Emmanuel CNP, RAIL SWITCHMAN REASON FOR VISIT: Noel Paul is a [...] STOP-Bang Score: STOP-Bang Score: 0 (Awaiting CPAP) [id number] Score: Age: <65 Sex: female [id number] Score: ARISCAT Score: Age: <=50 Preoperative SpO2: [...] chart review and guidance on proceeding at [place]. Per Stephanie, patient may proceed as scheduled at [place] CONSULTS: Anesthesia Consult chart review The Following [...] AT BEDTIME NEEDED Taking Yes DEXCOM G7 ROLL ICER misc as directed. DEXCOM G7 SENSOR eduin [...] fevers. Neuro: No history of TIA's, stroke, SOLID WASTE DIVISION SUPERVISOR tumor, impaired sensorium, hemiplegia, paraplegia or quadraplegia. No neurological symptoms or problems. Respiratory: No history of current cough or dyspnea, or pneumonia in the past 6 weeks. No history of respiratory/pulmonary symptoms or problems. Cardiovascular: No history of HTN requiring medication, no history of angina, CHF, MD, cardiac surgery or stents. Denies rest pain, [...] Noel Paul DATE: 12/28/2024 TIME: 10:21 AM [facility]01-31-2025 History and physical note* Ary Rocha [...] STOP-Bang Score: STOP-Bang Score: 0 (Awaiting CPAP) [id number] Score: Age: <65 Sex: female [id number] Score: ARISCAT Score: Age: <=50 Preoperative SpO2: [...] chart review and guidance on proceeding at [place]. Per Stephanie, patient may proceed as scheduled at [place] CONSULTS: Anesthesia Consult chart review The Following [...] AT BEDTIME NEEDED Taking Yes DEXCOM G7 ROLL ICER misc as directed. DEXCOM G7 SENSOR eduin [...] fevers. Neuro: No history of TIA's, stroke, SOLID WASTE DIVISION SUPERVISOR tumor, impaired sensorium, hemiplegia, paraplegia or quadraplegia. No neurological symptoms or problems. Respiratory: No history of current cough or dyspnea, or pneumonia in the past 6 weeks. No history of respiratory/pulmonary symptoms or problems. Cardiovascular: No history of HTN requiring medication, no history of angina, CHF, MD, cardiac surgery or stents. Denies rest pain, [...] 12/28/2024 TIME: 10:21 AM documented in this encounterCleveland Clinic Foundation01-29-2025 Instructions* Patient Instructions* Ary Rocha APRN.RAIL SWITCHMAN - 12/26/2024 7:49 AM EST Images from the original note were not included. [facility] PATIENT PREOPERATIVE INSTRUCTIONS Sean Mata,* has scheduled you for your procedure at this surgery center: [facility]: [phone] --[address] [facility] [address]. Please read below carefully for your personalized [...] office. If you are currently using a fnln-fzn-jhzm injectable or oral medication for diabetes or [...] Procedures: - YOU MUST HAVE A RESPONSIBLE CAR HEAD LINER INSTALLER TAKE YOU HOME. A PHYSICIAN RELATIONS SPECIALIST OR PERFUME MAKER CANNOT BE MADE A RESPONSIBLE CAR HEAD LINER INSTALLER. - We recommend that a responsible person [...] Advance Directive, please fax a copy to [phone] or email to for it to be [...] your chart that day. 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 documented in this encounterCleveland Clinic Foundation01-15-2025 NoteHNO ID: [id number] Author: SEAN MATA DPM Service: ? Author Type: Physician Type: Progress Notes Filed: 12/12/2024 10:46 Note Text: [facility] Department of Orthopedics [facility] Orthopedic Surgery Name: Noel Paul Date [...] Current Outpatient Medications Medication Sig DEXCOM G7 ROLL ICER misc as directed. DEXCOM G7 SENSOR eduin [...] to proceed. We will complete scheduling. [facility]-20[facility] History of Present illness Narrative* Sean Mata DPM - 12/12/2024 10:39 AM EST [facility] Department of Orthopedics [facility] Orthopedic Surgery Name: Noel Paul Date [...] Current Outpatient Medications Medication Sig DEXCOM G7 ROLL ICER misc as directed. DEXCOM G7 SENSOR eduin [...] scheduling. Sean Mata DPM documented in this encounterCleveland Clinic Foundation01-15-2025 NoteHNO ID: [id number] Author: JAMAL REYNOSO RT(R) Service: ? Author [...] PATIENT PRESENTS WITH AN IMPLANTABLE OR ATTACHED EXECUTIVE ASSOCIATE: No RADIOLOGY DEPARTMENT: General X-ray: Exam(s) Completed: Lower Extremity X-Ray(s): Foot, Right PERIPHERAL IV DATA: Not applicable SIGNED BY: RT Manju(R) December 12, 2024 9:29 [facility]01-15-2025 History of Present illness Narrative* Jamal Reynoso [...] PATIENT PRESENTS WITH AN IMPLANTABLE OR ATTACHED EXECUTIVE ASSOCIATE: No RADIOLOGY DEPARTMENT: General X-ray: Exam(s) Completed: Lower Extremity X- Ray(s): Foot, Right PERIPHERAL IV DATA: Not applicable SIGNED BY: RT Manju(R) December 12, 2024 9:29 AM documented in this encounterCleveland Clinic Foundation12-30-2024 NoteOrthopedic Surgery Subjective Pain of the Right [...] today as a referral from her previous piece hand for assistance with continued pain over the [...] from me. Kat Her MD Orthopedic Surgery, Bakery Technician [facility] 11/26/2024[facility]11-27-2024 History of Present illness Narrative* Pato [...] today for follow-up of MRI results at [facility]. Allergies: Allergies Allergen Reactions Sulfa Antibiotics Rash and Hives Past Medical History: Past Medical History: Diagnosis Date Diabetes ([facility]) Ear problems GERD (gastroesophageal reflux disease) 2012 [...] stress reaction. [facility]. Stress fracture of right foot, initial encounter 2. Type 2 diabetes mellitus without complication, unspecified whether long filler cigar roller machine insulin use ([facility]) 3. Accessory navicular bone of right foot [...] need more invasive surgery. Will refer to [facility] Dr. [place] for referral and consultation at tertiary care center secondary to more advanced type procedure may be necessary. Will refer for consultation and possible further intervention Pato Avelar DPM documented in this encounterThe Rehabilitation [id number] History of Present illness Narrative* Pato Avelar [...] History: Past Medical History: Diagnosis Date Diabetes ([facility]) Ear problems GERD (gastroesophageal reflux disease) 2012 [...] right Pato Avelar DPM documented in this encounterThe Rehabilitation [id number] History of Present illness Narrative* Pato Avelar [...] History: Past Medical History: Diagnosis Date Diabetes ([facility]) Ear problems GERD (gastroesophageal reflux disease) 2011 [...] diagnosis. Pato Avelar DPM documented in this encounterThe Rehabilitation [id number] Telephone encounter Note* Telephone Encounter - Pato Avelar DPM - 09/07/2024 8:26 AM EDT Has been called for possible increase in pain medication and will switch from hydrocodone to oxycodone and sent to [facility] and [place] The Rehabilitation [id number] Miscellaneous Notes* Telephone Encounter - Pato Avelar DPM - 09/07/2024 8:26 AM EDT Has been called for possible increase in pain medication and will switch from hydrocodone to oxycodone and sent to [facility] and [place] documented in this encounterThe Rehabilitation [id number] History of Present illness Narrative* Pato Avelar [...] History: Past Medical History: Diagnosis Date Diabetes ([facility]) Ear problems GERD (gastroesophageal reflux disease) 2011 [...] cool tibia to toes b/l NEURO: 5.07 [place] Deyanira monofilament test positive to digits and [...] diabetes mellitus without complication, unspecified whether long filler cigar roller machine insulin use ([facility]) 3. Heel spur, left 4. Plantar fasciitis [...] alternatives, benefits, post op complications and long filler cigar roller machine expectations were discussed including but not limited to: infection,bone infection,wound dehiscence hardware failure and irritation,wound dehiscence,delay union/mal union/non union of bone. RSDS,neuroma,duty limitations,DVT/PE, MD,nerve damage, scar, loss of sensation, swelling. Pt [...] 2024 Pato Avelar DPM documented in this encounterThe Rehabilitation [id number] History of Present illness Narrative* Pato Avelar [...] History: Past Medical History: Diagnosis Date Diabetes ([facility]) Ear problems GERD (gastroesophageal reflux disease) 2011 [...] 2 diabetes mellitus without complication, unspecified whether half-way insulin use ([facility]) PLAN Patient to continue with oral anti [...] Patient may continue with conservative treatments including ppxu-utn-jhkhacm anti- inflammatories and other treatments suggested today. Patient may want to be s cheduled for surgical intervention in the near future. Patient had a right modified Kidner procedure to the right foot with removal of accessory navicular with postoperative pain medicine of [place] and will see family Lien for preop clearance. This condition is unrelated to prior condition Pato Avelar DPM documented in this encounterThe Rehabilitation [id number] Telephone encounter Note* Telephone Encounter - GIVOANI MURRY - 07/31/2024 12:54 PM EDT Pt called back, would like scanned at next appt The Rehabilitation [id number] Miscellaneous Notes* Telephone Encounter - GIOVANI MURRY - 07/31/2024 12:54 PM EDT Pt called back, would like scanned at next appt * Telephone Encounter - GIOVANI MURRY - 07/31/2024 12:42 PM EDT Left vm to go over benefits * Telephone Encounter - Marti Murry MA - 07/27/2024 10:44 AM EDT Per call to Elda CHILDRESS @ [phone] with Denise Marroquin - I verified the policy is current and active with an effective date of 11/28/2020. L3020 is covered at 100% as both the ded and oop have been met. There are no frequency limits, no exclusions, and no prior authorizations needed. Ref#: [id number]. * Telephone Encounter - Pato Avelar DPM - 07/19/2024 4:56 PM EDT Please precertify for custom orthotics for the diagnosis of Posterior tibial tendinitis bilaterally documented in this encounterThe Rehabilitation [id number] Telephone encounter Note* Telephone Encounter - GIOVANI MURRY - 07/31/2024 12:42 PM EDT Left vm to go over benefits The Rehabilitation [id number] Telephone encounter Note* Telephone Encounter - Marti Murry MA - 07/27/2024 10:44 AM EDT Per call to Elda CHILDRESS @ [phone] with Denise Marroquin - I verified the policy is current and active with an effective date of 11/28/2020. L3020 is covered at 100% as both the ded and oop have been met. There are no frequency limits, no exclusions, and no prior authorizations needed. Ref#: [id number]. The Rehabilitation [id number] History of Present illness Narrative* Jaime Camargo [...] the next 7-10 days. Patient will use rhil-vvu-qfkykaf ibuprofen 3 times a day with food to help decrease inflammation. The patient may also benefit from a mouth guard. We will consider referral to Dr. Adali SALAZAR if there is no improvement documented in this encounterThe Rehabilitation InstituteJeqcpflbrq22-11-9498 Telephone encounter Note* Telephone Encounter - Pato Avelar DPM - 07/19/2024 4:56 PM EDT Please precertify for custom orthotics for the diagnosis of Posterior tibial tendinitis bilaterally The Rehabilitation [id number] History of Present illness Narrative* Pato Avelar DPM - 07/19/2024 4:10 PM EDT Patient: Noel Paul : 1990 PCP: [facility] Provider MD Milad SUBJECTIVE This is [...] History: Past Medical History: Diagnosis Date Diabetes ([facility]) Medications: Current Outpatient Medications: cholecalciferol (Vitamin D-3) [...] diabetes mellitus without complication, unspecified whether long filler cigar roller machine insulin use ([facility]) 3. Accessory navicular bone of right foot [...] treatments Pato Avelar DPM documented in this encounterThe Rehabilitation [id number] Evaluation note* Encounter Date Diagnosis Assessment Notes [...] no improvement in 5 to 7 days. [employer] Other Evaluation + Plan note Future Appointments Appointment Date:05/09/2024 07:30:00 AM Scheduled Provider: [facility] information [facility] Work Phone: Evaluation note* Diagnosis 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 Type 2 diabetes mellitus without complication, unspecified whether half-way insulin use ([facility]) Heel spur, left Plantar fasciitis Plantar fascial fibromatosis Contracture of left ankle Contracture of right ankle documented in this encounter [facility] HealthcareEvaluation note* Diagnosis 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 documented in this encounter [facility]* Diagnosis 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 Contracture of right ankle Type 2 diabetes mellitus without complication, unspecified whether long filler cigar roller machine insulin use (CMS/HCC) documented in this encounter [facility] HealthcareEvaluation note* Diagnosis 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 Contracture of right ankle documented in this encounter 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* Diagnosis Stress fracture of right foot, initial encounter- Primary Type 2 diabetes mellitus without complication, unspecified whether half-way insulin use (CMS/HCC) Accessory navicular bone of right foot documented in this encounter [facility]* Diagnosis Posterior tibial tendonitis of right leg- Primary Accessory navicular bone of left foot Type 2 diabetes mellitus without complication, unspecified whether half-way insulin use (CMS/HCC) Accessory navicular bone of right foot documented in this encounter [facility]* Diagnosis Arthralgia of left temporomandibular joint- Primary Left ear pain Unspecified otalgia Chronic rhinitis Fullness in ear, left documented in this encounter [facility]* Diagnosis 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 Posterior tibial tendonitis of right leg Type 2 diabetes mellitus without complication, unspecified whether long filler cigar roller machine insulin use (CMS/HCC) documented in this encounter [facility]* Diagnosis Accessory navicular bone of left foot- Primary documented in this encounter 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 [facility] Diagnosis Pre-op evaluation- Primary Preoperative examination, unspecified Gastroesophageal reflux disease, unspecified whether esophagitis present Diabetes mellitus without complication ([facility]) Type II or unspecified type diabetes mellitus [...] 10:05 AM ESTAssociated Problem(s): BMI 60.0-69.9, adult ([facility]) Assessment: diet and exercise encouraged BMI 62 * Assessment & Plan Note - Ary Rocha APRN.CNP - 12/28/2024 10:05 AM ESTAssociated Problem(s): Diabetes mellitus without complication ([facility]) Assessment: managed with oral med, stable Follows up with PCP BG at home 120's HgbA1c 6.6% * Assessment & Plan Note - Ary Rocha APRN.CNP - 12/28/2024 10:04 AM ESTAssociated Problem(s): Acid reflux Assessment: managed with med, stable Follows up with PCP documented in this encounter [facility] note* Diagnosis Pain- Primary Generalized pain Pain Generalized pain Pre-op evaluation- Primary Preoperative examination, unspecified Gastroesophageal reflux disease, unspecified whether esophagitis present Diabetes mellitus without complication ([facility]) Type II or unspecified type diabetes mellitus without mention of complication, not stated as uncontrolled BMI 60.0-69.9, adult ([facility]) Body Mass Index 60.0-69.9, adult AQUILES (obstructive sleep apnea) Obstructive sleep apnea (adult) (pediatric) documented in this encounter [facility] note* Diagnosis Pre-op evaluation- Primary Preoperative examination, unspecified Gastroesophageal reflux disease, unspecified whether esophagitis present Diabetes mellitus without complication (HCC) Type II or unspecified type diabetes mellitus without mention of complication, not stated as uncontrolled BMI 60.0-69.9, adult ([facility]) Body Mass Index 60.0-69.9, adult AQUILES (obstructive sleep apnea) Obstructive sleep apnea (adult) (pediatric) S/P foot surgery, right- Primary Accessory navicular bone of right foot documented in this encounter [facility] note* Diagnosis Pre-op evaluation- Primary Preoperative examination, unspecified Gastroesophageal reflux disease, unspecified whether esophagitis present Diabetes mellitus without complication (HCC) Type II or unspecified type diabetes mellitus without mention of complication, not stated as uncontrolled BMI 60.0-69.9, adult ([facility]) Body Mass Index 60.0-69.9, adult AQUILES (obstructive sleep apnea) Obstructive sleep apnea (adult) (pediatric) S/P foot surgery, right- Primary documented in this encounter [facility] note* Diagnosis Pre-op evaluation- Primary Preoperative examination, unspecified Gastroesophageal reflux disease, unspecified whether esophagitis present Diabetes mellitus without complication (HCC) Type II or unspecified type diabetes mellitus without mention of complication, not stated as uncontrolled BMI 60.0-69.9, adult ([facility]) Body Mass Index 60.0-69.9, adult AQUILES (obstructive sleep apnea) Obstructive sleep apnea (adult) (pediatric) S/P foot surgery, right- Primary Accessory navicular bone of right foot documented in this encounter [facility] note* Diagnosis Pre-op evaluation- Primary Preoperative examination, unspecified Gastroesophageal reflux disease, unspecified whether esophagitis present Diabetes mellitus without complication (HCC) Type II or unspecified type diabetes mellitus without mention of complication, not stated as uncontrolled BMI 60.0-69.9, adult ([facility]) Body Mass Index 60.0-69.9, adult AQUILES (obstructive sleep apnea) Obstructive sleep apnea (adult) (pediatric) S/P foot surgery, right- Primary documented in this encounter [facility] note* Diagnosis Pre-op evaluation- Primary Preoperative examination, unspecified Gastroesophageal reflux disease, unspecified whether esophagitis present Diabetes mellitus without complication (HCC) Type II or unspecified type diabetes mellitus without mention of complication, not stated as uncontrolled BMI 60.0-69.9, adult ([facility]) Body Mass Index 60.0-69.9, adult AQUILES (obstructive sleep apnea) Obstructive sleep apnea (adult) (pediatric) S/P foot surgery, right- Primary S/P foot surgery, right documented in this encounter [facility] note* Diagnosis Pre-op evaluation- Primary Preoperative examination, unspecified Gastroesophageal reflux disease, unspecified whether esophagitis present Diabetes mellitus without complication (HCC) Type II or unspecified type diabetes mellitus without mention of complication, not stated as uncontrolled BMI 60.0-69.9, adult ([facility]) Body Mass Index 60.0-69.9, adult AQUILES (obstructive sleep apnea) Obstructive sleep apnea (adult) (pediatric) S/P foot surgery, right- Primary documented in this encounter [facility] note* Diagnosis Pre-op evaluation- Primary Preoperative examination, unspecified Gastroesophageal reflux disease, unspecified whether esophagitis present Diabetes mellitus without complication (HCC) Type II or unspecified type diabetes mellitus without mention of complication, not stated as uncontrolled BMI 60.0-69.9, adult ([facility]) Body Mass Index 60.0-69.9, adult AQUILES (obstructive sleep apnea) Obstructive sleep apnea (adult) (pediatric) S/P foot surgery, right documented in this encounter [facility] note* Diagnosis Capsulitis of metatarsophalangeal (MTP) joint of right foot- Primary documented in this encounter [facility] note* Diagnosis Pre-op evaluation- Primary Preoperative examination, unspecified Gastroesophageal reflux disease, unspecified whether esophagitis present Diabetes mellitus without complication (HCC) Type II or unspecified type diabetes mellitus without mention of complication, not stated as uncontrolled BMI 60.0-69.9, adult ([facility]) Body Mass Index 60.0-69.9, adult AQUILES (obstructive sleep apnea) Obstructive sleep apnea (adult) (pediatric) S/P foot surgery, right- Primary S/P foot surgery, right documented in this encounter [facility] note* Diagnosis Pre-op evaluation- Primary Preoperative examination, unspecified Gastroesophageal reflux disease, unspecified whether esophagitis present Diabetes mellitus without complication (HCC) Type II or unspecified type diabetes mellitus without mention of complication, not stated as uncontrolled BMI 60.0-69.9, adult ([facility]) Body Mass Index 60.0-69.9, adult AQUILES (obstructive sleep apnea) Obstructive sleep apnea (adult) (pediatric) S/P foot surgery, right documented in this encounter [facility] note* Diagnosis Capsulitis of metatarsophalangeal (MTP) joint of right foot- Primary Type 2 diabetes mellitus without complication, unspecified whether long filler cigar roller machine insulin use documented in this encounter [facility] note* Diagnosis Pre-op evaluation- Primary Preoperative examination, unspecified Gastroesophageal reflux disease, unspecified whether esophagitis present Diabetes mellitus without complication (HCC) Type II or unspecified type diabetes mellitus without mention of complication, not stated as uncontrolled BMI 60.0-69.9, adult ([facility]) Body Mass Index 60.0-69.9, adult AQUILES (obstructive sleep apnea) Obstructive sleep apnea (adult) (pediatric) Sinus tarsitis, right- Primary documented in this encounter [facility] note* Diagnosis Pre-op evaluation- Primary Preoperative examination, unspecified Gastroesophageal reflux disease, unspecified whether esophagitis present Diabetes mellitus without complication (HCC) Type II or unspecified type diabetes mellitus without mention of complication, not stated as uncontrolled BMI 60.0-69.9, adult ([facility]) Body Mass Index 60.0-69.9, adult AQUILES (obstructive sleep apnea) Obstructive sleep apnea (adult) (pediatric) S/P foot surgery, right- Primary Chronic pain of right ankle documented in this encounter [facility] note* Diagnosis Pre-op evaluation- Primary Preoperative examination, unspecified Gastroesophageal reflux disease, unspecified whether esophagitis present Diabetes mellitus without complication (HCC) Type II or unspecified type diabetes mellitus without mention of complication, not stated as uncontrolled BMI 60.0-69.9, adult ([facility]) Body Mass Index 60.0-69.9, adult AQUILES (obstructive sleep apnea) Obstructive sleep apnea (adult) (pediatric) Chronic pain of right ankle documented in this encounter [facility] note* Diagnosis Pre-op evaluation- Primary Preoperative examination, unspecified Gastroesophageal reflux disease, unspecified whether esophagitis present Diabetes mellitus without complication (HCC) Type II or unspecified type diabetes mellitus without mention of complication, not stated as uncontrolled BMI 60.0-69.9, adult ([facility]) Body Mass Index 60.0-69.9, adult AQUILES (obstructive sleep apnea) Obstructive sleep apnea (adult) (pediatric) S/P foot surgery, right- Primary Chronic pain of right ankle documented in this encounter [facility] general Narrative - Reported* Type Description Date Medical History Acquired hypothyroidism Medical History vitamin D deficiency Surgical History cholecystectomy Hospitalization History No Hospitalization histo ry information [facility] mgMEDIA Other History of Present illness Narrative* Pato [...] History: Past Medical History: Diagnosis Date Diabetes ([facility]) Ear problems GERD (gastroesophageal reflux disease) 2011 [...] 2 diabetes mellitus without complication, unspecified whether half-way insulin use ([facility]) PLAN Patient to keep dry sterile dressing [...] patient Pato Avelar DPM documented in this [facility] course Narrative No data available for this section [facility] Discharge instructions No data available for this section [facility] Discharge instructions Additional Instructions DISCHARGE INSTRUCTIONS [...] operative site FOLLOW UP Phone numbers: Office [phone] [ ][facility] Work Phone: Progress note No data available for this section [facility] for referral (narrative)* Diagnostic Procedure Only (Routine) - Closed Specialty Diagnoses / Procedures Referred By Contac t Referred To Contact XR IMAGING Diagnoses Pain Procedures XR FOOT GENERAL 3V AP/LAT/OBL RIGHT RADEX FOOT COMPLETE MINIMUM 3 VIEWS Sean Mata DPM [address] [place] [address] [place] [address] Referral ID Status Reason Start Date Expiration Date V isits Requested Visits Authorized [id number] Closed Auto-Generate d Referral 12/05/2024 01/04/2026 1 1 [facility] for referral (narrative)* Diagnostic Procedure Only (Routine) - Closed Specialty Diagnoses / Procedures Referred By Contac t Referred To Contact XR IMAGING Diagnoses Pain Procedures XR FOOT GENERAL 3V AP/LAT/OBL RIGHT RADEX FOOT COMPLETE MINIMUM 3 VIEWS Sean Mata DPM [address] [place] [address] [place] [address] Referral ID Status Reason Start Date Expiration Date V isits Requested Visits Authorized [id number] Closed Auto-Generate d Referral 12/05/2024 01/04/2026 1 1 [facility] for referral (narrative)No reason for referral information [facility] Work Phone: [facility] for visit Narrative* Diagnostic Procedure Only (Routine) - Closed Specialty Diagnoses / Procedures Referred By Contac t Referred To Contact XR IMAGING Diagnoses Pain Procedures XR FOOT GENERAL 3V AP/LAT/OBL RIGHT RADEX FOOT COMPLETE MINIMUM 3 VIEWS Sean Mata DPM [address] [place] [address] [place] [address] Referral ID Status Reason Start Date Expiration Date V isits Requested Visits Authorized [id number] Closed Auto-Generate d Referral 12/05/2024 01/04/2026 1 1 [facility] for visit Narrative* Diagnostic Procedure Only (Routine) - Closed Specialty Diagnoses / Procedures Referred By Contac t Referred To Contact XR IMAGING Diagnoses S/P foot surgery, right Procedures XR FOOT GENERAL 3V AP/LAT/OBL RIGHT RADEX FOOT COMPLETE MINIMUM 3 VIEWS Sean Mata DPM [address] [place] [address] Phone: tel: fax: [place] [address] Referral ID Status Reason Start Date Expiration Date V isits Requested Visits Authorized [id number] Closed Auto-Generate d Referral 02/06/2025 03/07/2026 1 1 [facility] for visit Narrative* Diagnostic Procedure Only (Routine) - Closed Specialty Diagnoses / Procedures Referred By Contac t Referred To Contact XR IMAGING Diagnoses S/P foot surgery, right Procedures XR FOOT GENERAL 3V AP/LAT/OBL RIGHT RADEX FOOT COMPLETE MINIMUM 3 VIEWS Sean Mata DPM [address] [place] [address] Phone: tel: fax: [place] [address] Referral ID Status Reason Start Date Expiration Date V isits Requested Visits Authorized [id number] Closed Auto-Generate d Referral 03/07/2025 04/06/2026 1 1 [facility] for visit Narrative* MRI/CT (Routine) - Closed Specialty Diagnoses / Procedures Referred By Alex gamboa Referred To Contact MR IMAGING Diagnoses Chronic pain of right ankle Procedures MRI ANKLE WO IVCON RIGHT MRI ANY JT LOWER EXTREM W/O CONTRAST MATRSean Oden DPM [address] [place] [address] Phone: tel: fax: [place] [address] Referral ID Status Reason Start Date Expiration Date V isits Requested Visits Authorized [id number] Closed Auto-Generate d Referral 05/22/2025 06/11/2025 1 1 [facility] Summary Purpose Family History No Family History [...] bone of right foot Pato Avelar DPM [address] [address] Referral ID Status Reason Start Date Expiration Date V isits Requested Visits Authorized [id number] Pending Review 09/07/2024 03/06/2025 1 1 Additional [...] and content) DATE CREATED AUTHOR 05/06/2023 [facility] DATE CREATED AUTHOR AUTHOR'S ORGANIZ ATION 04/26/2024 Beckett Ballard [facility] DATE CREATED AUTHOR AUTHOR'S ORGANIZ ATION 07/01/2024 [facility] EPIC DATE CREATED AUTHOR AUTHOR'S ORGANIZ ATION 09/12/2024 [place] Ballard [facility] DATE CREATED AUTHOR AUTHOR'S ORGANIZ ATION 09/13/2024 [place] Sai [facility] DATE CREATED AUTHOR AUTHOR'S ORGANIZ ATION 09/15/2024 [facility] DATE CREATED AUTHOR AUTHOR'S ORGANIZ ATION 12/09/2024 [facility] DATE CREATED AUTHOR AUTHOR'S ORGANIZ ATION 03/22/2025 [facility] EPIC DATE CREATED AUTHOR AUTHOR'S ORGANIZ ATION 06/15/2025 [facility] DATE CREATED AUTHOR AUTHOR'S ORGANIZ ATION 07/15/2025 [facility] Care Teams (unrecognized sec tion [...] May 16, 2024 End: May 16, 2024 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 Start Date End Date Erich Garcia MD [address] [place] [phone] PCP - General Family Medicine 07/24/24 Monique Emmanuel MD [address] [place] [phone] Referring Physician Family Medicine 03/29/24 Monique Emmanuel MD [address] [place] [address] Referring Physician Family Medicine 07/24/24 Jaime Camargo DO [address] [place] [address] Otolaryngology 07/24/24 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 Start Date End Date Erich Garcia MD [address] [place] [phone] PCP - General Family Medicine 07/24/24 Monique Emmanuel MD [address] [place] [phone] Referring Physician Family Medicine 03/29/24 Monique Emmanuel MD [address] [place] [address] Referring Physician Family Medicine 07/24/24 Jaime Camargo DO [address] [place] [address] Otolaryngology 07/24/24 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 Start Date End Date Erich Garcia MD [address] [place] [phone] PCP - General Family Medicine 07/24/24 Monique Emmanuel MD [address] [place] [phone] Referring Physician Family Medicine 03/29/24 Monique Emmanuel MD [address] [place] [phone] Referring Physician Family Medicine 07/24/24 Jaime Camargo DO [address] [place] [address] Otolaryngology 07/24/24 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 Start Date End Date Erich Garcia MD [address] [place] [phone] PCP - General Family Medicine 07/24/24 Monique Emmanuel MD [address] [place] [phone] Referring Physician Family Medicine 03/29/24 Monique Emmanuel MD [address] [place] [address] Referring Physician Family Medicine 07/24/24 Jaime Camargo DO [address] [place] [address] Otolaryngology 07/24/24 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 Start Date End Date Erich Garcia MD [address] [place] [phone] PCP - General Family Medicine 07/24/24 Monique Emmanuel MD [address] [place] [phone] Referring Physician Family Medicine 03/29/24 Monique Emmanuel MD [address] [place] [address] Referring Physician Family Medicine 07/24/24 Jaime Camargo DO [address] [place] [address] Otolaryngology 07/24/24 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 Start Date End Date Erich Garcia MD [address] [place] [phone] PCP - General Family Medicine 07/24/24 Monique Emmanuel MD [address] [place] [phone] Referring Physician Family Medicine 03/29/24 Monique Emmanuel MD [address] [place] [phone] Referring Physician Family Medicine 07/24/24 Jaime Camargo DO [address] [place] [address] Otolaryngology 07/24/24 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 Start Date End Date Erich Garcia MD [address] [place] [phone] PCP - General Family Medicine 07/24/24 Monique Emmanuel MD [address] [place] [phone] Referring Physician Family Medicine 03/29/24 Monique Emmanuel MD [address] [place] [address] Referring Physician Family Medicine 07/24/24 Jaime Camargo, [address] [place] [address] Otolaryngology 07/24/24 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 Start Date End Date Erich Garcia MD [address] [place] [phone] PCP - General Family Medicine 07/24/24 Monique Emmanuel MD [address] [place] [phone] Referring Physician Family Medicine 03/29/24 Monique Emmanuel MD [address] [place] [address] Referring Physician Family Medicine 07/24/24 Jaime Camargo DO [address] [place] [place] [address] Otolaryngology 07/24/24 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 Start Date End Date Unallocated, Yashira Romeo MD [address] [place] [address] [place] [address] PCP - General Family Medicine 03/29/24 Monique Emmanuel MD [address] [place] [phone] Referring Physician Family Medicine 03/29/24 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 Start Date End Date Erich Garcia MD [address] [place] [phone] PCP - General Family Medicine 07/24/24 Monique Emmanuel MD [address] [place] [phone] Referring Physician Family Medicine 03/29/24 Monique Emmanuel MD [address] [place] [phone] Referring Physician Family Medicine 07/24/24 Jaime Camargo DO [address] [place] [address] Otolaryngology 07/24/24 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 Start Date End Date Unallocated, Yashira Romeo MD [address] [place] [address] PCP - General Family Medicine 03/29/24 Monique Emmanuel MD [address] [place] [address] Referring Physician Family Medicine 03/29/24 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 Start Date End Date Erich Garcia MD [address] [place] [address] PCP - General Family Medicine 07/24/24 Monique Emmanuel MD [address] [place] [address] Referring Physician Family Medicine 03/29/24 Monique Emmanuel MD [address] [place] [phone] Referring Physician Family Medicine 07/24/24 Jaime Camargo DO [address] [facility] [place] [address] Otolaryngology 07/24/24 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 Start Date End Date Erich Garcia MD [address] [place] [phone] PCP - General Family Medicine 07/24/24 [place] [address] [place] [address] Referring Physician Family Medicine 03/29/24 Monique Emmanuel MD [address] [place] [address] Referring Physician Family Medicine 07/24/24 Jaime Camargo DO [address] [facility] [place] [address] Otolaryngology 07/24/24 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 Start Date End Date Erich Garcia MD [address] [place] [phone] PCP - General Family Medicine 07/24/24 [place] [address] [place] [address] Referring Physician Family Medicine 03/29/24 Monique Emmanuel MD [address] [place] [address] 16071 Referring Physician Family Medicine 07/24/24 Jaime Camargo DO [address] [facility] [place] [address] Otolaryngology 07/24/24 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 Start Date End Date Unallocated, Noms MD Ousmane [address] [place] [address] PCP - General Family Medicine 03/29/24 07/23/24 Erich Garcia MD [address] [place] [phone] PCP - General Family Medicine 07/24/24 [place] [address] [place] [phone] Referring Physician Family Medicine 03/29/24 [place] [address] [place] [phone] Referring Physician Family Medicine 07/24/24 Jaime Camargo DO [address] [place] [address] Otolaryngology 07/24/24 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 Start Date End Date Monique Emmanuel CNP [address] [place] [address] PCP - General Internal Medicine 12/17/24 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 Start Date End Date Monique Emmanuel CNP [address] [place] [id number] PCP - General Internal Medicine 12/17/24 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 Start Date End Date Monique Emmanuel CNP [address] [place] [id number] PCP - General Internal Medicine 12/17/24 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 Start Date End Date Monique Emmanuel CNP [address] [place] [id number] PCP - General Internal Medicine 12/17/24 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 Start Date End Date Monique Emmanuel CNP [address] [place] [id number] PCP - General Internal Medicine 12/17/24 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 Start Date End Date Monique Emmanuel CNP [address] [place] [address] PCP - General Internal Medicine 12/17/24 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 Start Date End Date Monique Emmanuel CNP [address] [place] [address] PCP - General Internal Medicine 12/17/24 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 Start Date End Date Monique Emmanuel CNP [address] [place] [address] PCP - General Internal Medicine 12/17/24 Team Status: Inactive Member Role Status Dates Monique Emmanuel , FITNESS TEACHER-C Primary Care Provider Active Start: February 05, 2025 End: February 05, 2025 Radha Kong APRN Attending Provider Active Start: February 05, 2025 End: February 05, 2025 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 Start Date End Date Monique Emmanuel CNP [address] [place] [id number] PCP - General Internal Medicine 12/17/24 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 Start Date End Date Monique Emmanuel CNP [address] [place], [place] [id number] PCP - General Internal Medicine 12/17/24 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 Start Date End Date Monique Emmanuel CNP [address] [place] [address] PCP - General Internal Medicine 12/17/24 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 Start Date End Date Erich Garcia MD [address] [place] [phone] PCP - General Family Medicine 07/24/24 Monique Emmanuel MD [address] [place] [address] Referring Physician Family Medicine 03/29/24 [place] [address] [place] [address] Referring Physician Family Medicine 07/24/24 Jaime Camargo, [address] [place] [address] Otolaryngology 07/24/24 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 Start Date End Date Erich Garcia MD [address] [place] [address] PCP - General Family Medicine 07/24/24 Monique Emmanuel MD [address] [place] [address] Referring Physician Family Medicine 03/29/24 Monique Emmanuel MD [address] [place] [address] Referring Physician Family Medicine 07/24/24 Jaime Camargo DO [address] [place] [address] Otolaryngology 07/24/24 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 Start Date End Date Monique Emmanuel CNP [address] [place] [address] PCP - General Internal Medicine 12/17/24 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 Start Date End Date Monique Emmanuel CNP [address] [place] [address] PCP - General Internal Medicine 12/17/24 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 Start Date End Date Monique Emmanuel CNP [address] [place] [facility] [address] PCP - General Internal Medicine 12/17/24 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 Start Date End Date Monique Emmanuel CNP [address] [place] [address] PCP - General Internal Medicine 12/17/24 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 Start Date End Date Monique Emmanuel CNP [address] [place] [address] PCP - General Internal Medicine 12/17/24 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 Start Date End Date Monique Emmanuel CNP [address] [place] [address] PCP - General Internal Medicine 12/17/24 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 Start Date End Date Monique Emmanuel CNP [address] [place], [place] [id number] [phone] PCP - General Internal Medicine 12/17/24 Team [...] any alcohol or drug abuse patient.[facility] FoundationIn the event this information is protected by the Federal Confidentiality of Alcohol and Drug Abuse Patient Records regulations: The Federal rules restrict any use of the information to criminally investigate or prosecute any alcohol or drug abuse patient.[facility] FoundationIn the event this information is protected by the Federal Confidentiality of Alcohol and Drug Abuse Patient Records regulations: The Federal rules restrict any use of the information to criminally investigate or prosecute any alcohol or drug abuse patient.[facility] FoundationIn the event this information is protected by the Federal Confidentiality of Alcohol and Drug Abuse Patient Records regulations: The Federal rules restrict any use of the information to criminally investigate or prosecute any alcohol or drug abuse patient.[facility] FoundationIn the event this information is protected by the Federal Confidentiality of Alcohol and Drug Abuse Patient Records regulations: The Federal rules restrict any use of the information to criminally investigate or prosecute any alcohol or drug abuse patient.[facility] FoundationIn the event this information is protected by the Federal Confidentiality of Alcohol and Drug Abuse Patient Records regulations: The Federal rules restrict any use of the information to criminally investigate or prosecute any alcohol or drug abuse patient.[facility] FoundationIn the event this information is protected by the Federal Confidentiality of Alcohol and Drug Abuse Patient Records regulations: The Federal rules restrict any use of the information to criminally investigate or prosecute any alcohol or drug abuse patient.[facility] FoundationIn the event this information is protected by the Federal Confidentiality of Alcohol and Drug Abuse Patient Records regulations: The Federal rules restrict any use of the information to criminally investigate or prosecute any alcohol or drug abuse patient.[facility] [place] the event this information is protected by the Federal Confidentiality of Alcohol and Drug Abuse Patient Records regulations: The Federal rules restrict any use of the information to criminally investigate or prosecute any alcohol or drug abuse patient.[facility] FoundationIn the event this information is protected by the Federal Confidentiality of Alcohol and Drug Abuse Patient Records regulations: The Federal rules restrict any use of the information to criminally investigate or prosecute any alcohol or drug abuse patient.[facility] FoundationIn the event this information is protected by the Federal Confidentiality of Alcohol and Drug Abuse Patient Records regulations: The Federal rules restrict any use of the information to criminally investigate or prosecute any alcohol or drug abuse patient.[facility] FoundationIn the event this information is protected by the Federal Confidentiality of Alcohol and Drug Abuse Patient Records regulations: The Federal rules restrict any use of the information to criminally investigate or prosecute any alcohol or drug abuse patient.[facility] FoundationIn the event this information is protected by the Federal Confidentiality of Alcohol and Drug Abuse Patient Records regulations: The Federal rules restrict any use of the information to criminally investigate or prosecute any alcohol or drug abuse patient.[facility] FoundationIn the event this information is protected by the Federal Confidentiality of Alcohol and Drug Abuse Patient Records regulations: The Federal rules restrict any use of the information to criminally investigate or prosecute any alcohol or drug abuse patient.[facility] FoundationIn the event this information is protected by the Federal Confidentiality of Alcohol and Drug Abuse Patient Records regulations: The Federal rules restrict any use of the information to criminally investigate or prosecute any alcohol or drug abuse patient.[facility] FoundationIn the event this information is protected by the Federal Confidentiality of Alcohol and Drug Abuse Patient Records regulations: The Federal rules restrict any use of the information to criminally investigate or prosecute any alcohol or drug abuse patient.[facility] FoundationIn the event this information is protected by the Federal Confidentiality of Alcohol and Drug Abuse Patient Records regulations: The Federal rules restrict any use of the information to criminally investigate or prosecute any alcohol or drug abuse patient.[facility] FoundationIn the event this information is protected by the Federal Confidentiality of Alcohol and Drug Abuse Patient Records regulations: The Federal rules restrict any use of the information to criminally investigate or prosecute any alcohol or drug abuse patient.[facility] FoundationIn the event this information is protected by the Federal Confidentiality of Alcohol and Drug Abuse Patient Records regulations: The Federal rules restrict any use of the information to criminally investigate or prosecute any alcohol or drug abuse patient.[facility] FoundationIn the event this information is protected by the Federal Confidentiality of Alcohol and Drug Abuse Patient Records regulations: The Federal rules restrict any use of the information to criminally investigate or prosecute any alcohol or drug abuse patient.[facility] FoundationIn the event this information is protected by the Federal Confidentiality of Alcohol and Drug Abuse Patient Records regulations: The Federal rules restrict any use of the information to criminally investigate or prosecute any alcohol or drug abuse patient.[facility] FoundationIn the event this information is protected by the Federal Confidentiality of Alcohol and Drug Abuse Patient Records regulations: The Federal rules restrict any use of the information to criminally investigate or prosecute any alcohol or drug abuse patient.[facility] FoundationIn the event this information is protected by the Federal Confidentiality of Alcohol and Drug Abuse Patient Records regulations: The Federal rules restrict any use of the information to criminally investigate or prosecute any alcohol or drug abuse patient.[facility] FoundationIn the event this information is protected by the Federal Confidentiality of Alcohol and Drug Abuse Patient Records regulations: The Federal rules restrict any use of the information to criminally investigate or prosecute any alcohol or drug abuse patient.[facility] FoundationIn the event this information is protected by the Federal Confidentiality of Alcohol and Drug Abuse Patient Records regulations: The Federal rules restrict any use of the information to criminally investigate or prosecute any alcohol or drug abuse patient.[facility] FoundationIn the event this information is protected by the Federal Confidentiality of Alcohol and Drug Abuse Patient Records regulations: The Federal rules restrict any use of the information to criminally investigate or prosecute any alcohol or drug abuse patient.[facility] FoundationIn the event this information is protected by the Federal Confidentiality of Alcohol and Drug Abuse Patient Records regulations: The Federal rules restrict any use of the information to criminally investigate or prosecute any alcohol or drug abuse patient.[facility] FoundationIn the event this information is protected by the Federal Confidentiality of Alcohol and Drug Abuse Patient Records regulations: The Federal rules restrict any use of the information to criminally investigate or prosecute any alcohol or drug abuse patient.[facility] FoundationIn the event this information is protected by the Federal Confidentiality of Alcohol and Drug Abuse Patient Records regulations: The Federal rules restrict any use of the information to criminally investigate or prosecute any alcohol or drug abuse patient.[facility] FoundationIn the event this information is protected by the Federal Confidentiality of Alcohol and Drug Abuse Patient Records regulations: The Federal rules restrict any use of the information to criminally investigate or prosecute any alcohol or drug abuse patient.[facility] FOR RECORDS PERTAINING TO PATIENTS WHO ARE [...] BE BASED ON THE PRIMARY CLINICAL RECORDS. [employer] [facility]. provides no warranty or guarantee of the accuracy or completeness of information in this document.
--- NOTE | 2025-09-04 21:39 | XR_ITS ---
[place] [id number] Patient Name: NOEL ROCHE MRN: [id number] date: 1990 Sex: F Assigned Patient Location: ER Current Patient Location: ED.MAIN Accession/Order Number: [id number] Exam Date: 09/04/2025 21:45 Report Date: 09/04/2025 22:12 At the request of: CAIN DEE MD Procedure: XR shoulder RT min 2V 3 views right shoulder CLINICAL HISTORY: right shoulder pain COMPARISON: None FINDINGS: No fractures or dislocation.. No significant degenerative change. Soft tissues unremarkable.. XR/XR shoulder RT min 2V IMPRESSION: No acute bony process. Impression dictated by: Joshua Prince M.D. 09/04/2025 10:12 PM Dictation Location: [place] [address] Electronically authenticated by: [id number] Y Date: 09/04/2025 22:12
--- NOTE | 2025-09-04 21:42 | PC.NURSE ---
no rash, redness or bruising to area of complaint. pt reports pain started after getting out of the bathtub this morning.
--- NOTE | 2025-09-04 21:43 | ED.EXTPRO1 ---
HPI - Extremity Problem General Chief complaint: Extremity Problem, Nontraumatic Stated complaint: RIGHT SHOULDER PAIN Time Seen by Provider: 09/04/25 21:28 Source: patient Mode of arrival: walk-in Limitations: no limitations History of Present Illness HPI Narrative: This 35-year-old female who has had clavicle surgery on her right clavicle and a scope to her right shoulder in the past presents for evaluation of pain in her shoulder. She actually has pain behind her right shoulder in her trapezius area. She states that she did not have any injury but was getting out of the bathtub earlier today and felt pain in her right shoulder. Since that time she has had a sharp stabbing pain in the right posterior shoulder area. She has no numbness or tingling. She has no chest pain or shortness of breath. She states she has taken Tylenol and Motrin without significant improvement. Related Data Home Medications ?Medication ?Instructions ?Recorded ?Confirmed cholecalciferol (vitamin D3) 125 125 mcg PO QAM 10/26/24 03/05/25 mcg (5,000 unit) tablet escitalopram oxalate 20 mg tablet 20 mg PO QAM 10/26/24 03/05/25 glipizide 5 mg tablet 5 mg PO QAM 10/26/24 03/05/25 metformin 500 mg tablet 500 mg PO BID 10/26/24 03/05/25 trazodone 100 mg tablet 100 mg PO QPM PRN sleep 10/26/24 03/05/25 Allergies Allergy/AdvReac Type Severity Reaction Status Date / Time Sulfa (Sulfonamide Allergy Severe Hives Verified 09/04/25 21:32 Antibiotics) Review of Systems ROS Status of ROS 10 or more systems reviewed and unremarkable except as noted in history and below [facility] Medical History (Updated 09/04/25 @ 22:01 by Eun Tucker MD) Arthritis of right acromioclavicular joint ?M19.011 - Primary osteoarthritis, right shoulder (ICD-10) Acromioclavicular joint arthritis ?M19.019 - Primary osteoarthritis, unspecified shoulder (ICD-10) Accessory navicular bone of both feet ?Q74.2 - Other congenital malformations of lower limb(s), including pelvic girdle (ICD-10) Navicular fracture of ankle ?S92.253A - Displaced fracture of navicular [scaphoid] of unspecified foot, initial encounter for closed fracture (ICD-10) Osteoarthritis ?M19.90 - Unspecified osteoarthritis, unspecified site (ICD-10) Insomnia ?G47.00 - Insomnia, unspecified (ICD-10) Anxiety ?F41.9 - Anxiety disorder, unspecified (ICD-10) Restless leg ?G25.81 - Restless legs syndrome (ICD-10) GERD (gastroesophageal reflux disease) ?K21.9 - Gastro-esophageal reflux disease without esophagitis (ICD-10) Diabetes ?E11.9 - Type 2 diabetes mellitus without complications (ICD-10) Surgical History (Updated 10/26/24 @ 10:36 by Laura Cabral) History of cholecystectomy ?Z90.49 - Acquired absence of other specified parts of digestive tract (ICD-10) Family History (Updated 10/26/24 @ 10:32 by Laura Cabral) Other Family history of COPD (chronic obstructive pulmonary disease) Family history of coronary artery disease Family history of diabetes mellitus Family history of seizures Social History (Updated 10/26/24 @ 10:30 by Laura Cabral) Within the past year, how often did you have a drink containing alcohol: never Score interpretation: A score less than 3 is consistent with normal alcohol consumption. Smoking status: Never smoker Non-prescribed substance use: denies use Previous occupational history: [employer] Highest level of school completed/degree received: high school graduate Little interest or pleasure in doing things: not at all Feeling down, depressed, or hopeless: not at all Exam Narrative Exam Narrative: Vital signs and Nursing Notes reviewed: Patient is afebrile with a normal pulse, normal blood pressure, she is not hypoxic with pulse ox of 98% on room air General: Awake, alert, oriented, overweight female resting comfortably on the stretcher with her right arm resting across her chest, no respiratory distress HEENT: Normocephalic atraumatic, mucous membranes are moist and pink, eyes are clear, normal conjunctiva, vision is grossly intact Neck: Supple, no midline bony vertebral tenderness or step-off Chest: Lungs are clear to auscultation with good air entry, there is no wheezing rhonchi or rales appreciated no accessory muscle use, patient is speaking in complete sentences-no chest wall tenderness to palpation CVS: Regular rate and rhythm S1-S2, no murmurs rubs or gallops, pulses are brisk and equal bilaterally Extremities: Patient resist range of motion of the right upper extremity but is able to extend at her elbow, she resists crossing her right arm to her left shoulder, no bony deformity or sign of dislocation noted, she is tender in the right posterior shoulder girdle area in the trapezius and scalene muscles, no skin rash or notable abnormality in this area. No midline bony vertebral tenderness. Bread Packer strength is intact, hand is warm and sensate with normal pulses. Skin: Normal in appearance without rash,pallor, petechiae or purpura Neuro: No focal deficits, psychology clinician strength is intact Constitutional Vital Signs, click to edit/add: Last Vital Signs Temp 98.2 F 09/04/25 21:32 Pulse 74 09/04/25 21:32 Resp 17 09/04/25 21:32 BP 111/64 09/04/25 21:32 Pulse Ox 98 09/04/25 21:32 O2 Del Method Room Air 09/04/25 21:32 Course Vital Signs Vital signs: Vital Signs Temperature 98.2 F 09/04/25 21:32 Pulse Rate 74 09/04/25 21:32 Respiratory Rate 17 09/04/25 21:32 Blood Pressure 111/64 09/04/25 21:32 Pulse Oximetry 98 09/04/25 21:32 Oxygen Delivery Method Room Air 09/04/25 21:32 Temperature 98.2 F 09/04/25 21:32 Pulse Rate 74 09/04/25 21:32 Respiratory Rate 17 09/04/25 21:32 Blood Pressure 111/64 09/04/25 21:32 Pulse Oximetry 98 09/04/25 21:32 Oxygen Delivery Method Room Air 09/04/25 21:32 MDM - Extremity (Nontraumatic) MDM Narrative Medical decision making narrative: This 35-year-old female who is right-hand dominant presents for evaluation of right posterior shoulder pain. She is tender in the right trapezius area and scalene muscles. She does not have any anterior shoulder tenderness. She states she has had a scope on the shoulder in the past and surgery on the distal clavicle. She denies any injury but states the pain started when she was getting up out of the bathtub earlier today. She did not fall. She resists range of motion of the right shoulder. There is no notable bony deformity or sign of dislocation. Bread Packer strength is intact, pulses are brisk. X-ray of the shoulder does not show any fracture, dislocation foreign body or other notable abnormality. She was medicated emergency department with a dose of Toradol and Norflex. I explained to her that her symptoms are likely musculoskeletal in nature. She will be discharged home with a prescription for Robaxin and ibuprofen. Discharge Plan Discharge Chief Complaint: Extremity Problem, Nontraumatic Clinical Impression: Right shoulder pain, Acute myofascial strain Patient Disposition: Home, Self-Care Time of Disposition Decision: 22:01 Condition: Good Prescriptions / Home Meds: No Action cholecalciferol (vitamin D3) 125 mcg (5,000 unit) tablet 125 mcg PO QAM escitalopram oxalate 20 mg tablet 20 mg PO QAM glipizide 5 mg tablet 5 mg PO QAM trazodone 100 mg tablet 100 mg PO QPM PRN (Reason: sleep) metformin 500 mg tablet 500 mg PO BID Print Language: Romansh Instructions: Arthralgia (ED), Heat Pack Application (ED), Shoulder Pain (ED) Referrals: GUERRERO EMMANUEL [Primary Care Provider, Family Practice] - 1 week
[2025-09-04] MEDS: KETOROLAC TROMETHAMINE 60 MG/2 ML VIAL IM (21:58)
[2025-09-04] MEDS: ORPHENADRINE 60 MG/2 ML VIAL IM (21:58)
--- NOTE | 2025-09-04 22:12 | PC.NURSE ---
i gave this patient verbal and written discharge orders along with 2 Rx, and this patient voices yes to understanding these. at time of discharge this patient voices no concerns, needs and shows no signs of distress
== END 2025-09-04 22:12 | disposition home or self-care (01) ==
PROVIDERS: Emergency Provider Emergency Medicine; PCP Nurse Practitioner Family
DX: S46.911A Strain of unspecified muscle, fascia and tendon at shoulder and upper arm level, right arm, initial encounter (principal); X58.XXXA Exposure to other specified factors, initial encounter; M25.511 Pain in right shoulder
CPT/HCPCS: 73030; 96372; 99284; J1885; J2360

== ENCOUNTER 2025-09-16 11:15 | Outpatient (OUT) | payer BC, SELFPAY ==
--- OUTSIDE RECORDS SUMMARY | 2025-09-16 11:21 | XMS_ITS | CCD ---
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 Name Role Phone Monique Dudley Unavailable MONIQUE [...] Consulting Unavailsandra Dudley NP-C Monique Attending Provider [phone] LORI Emmanuel Primary Care Provider MONIQUE EMMANUEL [...] LONG, Erich Barraza Primary Care Provider Jaime Woods DO Unavailable Valentino, DPMadi Johnson Attending Unavailabl e Brown, DPM Pato A Admitting Unavailabl e Brown, DPM Pato A Attending Unavailabl e Brown, DPM Pato A Referring Unavailabl e Brown, DPM Pato A Admitting Unavailabl e Unallocated MD, Noms Provider Primary Care Provi anna Unallocated MD, Noms Provider Primary Care Provi anna ELATTAR, OSAMA Referring Unavailable ELATTAR, OSAMA Referring Unavailable PATO AVELAR Referring Unavailable ELATTAR, OSAMA Attending Unavailable Unavailable Primary Care Provider Unavailsandra e Monique Emmanuel CNP S Primary Care Provider Lien CHAMBER WALKER-C, Monique Vargas Primary Care Provider [phone] Marek Dennis DO Emergency Provider Neo Mclaughlin MD Admit Provider [phone] Neo Mclaughlin MD Attending Provider Maryanne Unegr RN Other Provider Unavailable Balaji Cohen MD Other Provider Kvng Carcamo MD Other Provider [phone] Inge Adler MD Attending Provider Inge Adler MD Other Provider Merry Nieves APRN Other Provider Mitch Galaviz MD Other Provider Monique Emmanuel Primary Care Unavailable Neo Mclaughlin Admitting Unavailable Maryanne Unger Consulting Unavailable Mitch Galaviz Attending Unavailab le Maryanne Unger Consulting Unavailable Balaji Cohen Consulting Unavailable Kvng Carcamo Consulting [place] Adler, Inge Consulting Unavailable WarrenMerry Consulting Unavailable LIEN, MONIQUE S Primary Care Unavailable [...] Care Unavailable SEAN MATA Referring Unavailab le ESPERANZASEAN Attending Unavailab le ESPERANZASEAN Admitting Unavailab le ESPERANZASEAN Referring Unavailab le ESPERANZASEAN Attending Unavailab le LIEN, MONIQUE S Primary Care Unavailable SEAN MATA Referring Unavailab le LIEN, MONIQUE S Primary Care Unavailable SEAN MATA Attending Unavailab sera Garcia MD, Erich Barraza Primary Care Provider [phone] PATO AVELAR Attending Unavailable PATO AVELAR Attending Unavailable PATO AVELAR Attending Unavailable PATO AVELAR Referring Unavailable PATO AVELRA Attending Unavailable PATO AVELAR Attending Unavailable PATO AVELAR Attending Unavailable PATO AVELAR Attending Unavailable Allergies Allergy Classification Reported Allergen(s) Allergy Type Date of Onset Reaction(s) Facility (1 source) [facility] (1 source) Sulf-10 Drug allergy [facility] Other (1 source) Sulfonamides (Antibiotic) Drug allergy (disorder) 3 [facility] (20 sources) Sulfonamides (Antibiotic); Translations: [SULFA (SULFONAMIDE ANTIBIOTICS)] Allergy to substance 4 [facility] (8 sources) Egg Derived; Translations: [Egg Derived] Allergy to substance 4 [facility] (5 sources) Sulfonamides (Antibiotic); Translations: [sulfa drugs] Drug allergy [facility] (20 sources) Sulfonamides (Antibiotic) Drug Allergy 4 [facility], [facility] Medications Current Medications Medication Drug Class(es) Dates Sig (Normalized) Sig (Original) acetaminophen 325 mg / HYDROcodone bitartrate 5 mg oral tablet (2 sources) Opioid Agonist Start: 08-30-2024 End: 09-04-2024 take 1 tablet by mouth every eight hours as needed for pain HYDROcodone-aceta minophen (Searchlight) 5-325 MG tablet Indications: Pain Take 1 [...] eduin as directed. 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 G7 SHEET ROCK APPLIER misc (20 sources) Start: 09-20-2024 DEXCOM G7 [...] 2024 12:00am Complies with drug therapy methylPREDNISolone (10 sources) Corticosteroid Start: 09-05-2025 methylPREDNISo lone (Medrol Dospak) 4 MG tablets Indications: Capsulitis of metatarsophalangeal (MTP) joint of right foot Follow schedule on MEDROL PACK package instructions to be used as directed 21 tablet 09/05/2025 Active Start: 03-07-2025 End: 09-05-2025 methylPREDNISolone (Medrol D ospak) 4 MG tablets Indications: Capsulitis of metatarsophalangeal (MTP) joint of right foot Follow schedule on MEDROL PACK package instructions to be used as directed 21 tablet 03/07/2025 09/05/2025 Discontinued (Therapy completed) Start: 03-07-2025 methylPREDNISo lone (Medrol Dospak) 4 MG tablets Indications: Capsulitis [...] day at the same time 03/12/2024 Active [place] [facility] (3 sources) Start: 02-27-2024 [place] S[facility] g Active 0 .Route 1 February 27, 2024 12:00am As directed [place] [facility]ling unit (4 sources) Start: 02-27-2024 [place] S[facility] unit Active 0 .Route 1 [...] left ankle] 08-30-2024 Chronic Other acquired deformities (10 sources) Contracture of joint of right ankle; [...] fibromatosis] 08-30-2024 Episodic Other connective tissue disease (6 sources) Tendinitis of right posterior tibial tendon; Translations: [Posterior tibial tendinitis, right leg] 07-19-2024 Episodic Other connective tissue disease (2 sources) Posterior tibial tendinitis, right leg; Translations: [Posterior tibial tendinitis, right leg] Onset: 4 Episodic Other connective tissue disease (1 source) Pain in right foot; Translations: [Pain in right foot] 12-12-2024 Episodic Other connective tissue disease (6 sources) Capsulitis of metatarsophalangeal joint of right [...] joints of right foot] 05-16-2025 Episodic Other nutritional; endocrine; and metabolic disorders [...] Translations: [Other specified postprocedural states] 01-03-2025 Episodic Skin and subcutaneous tissue infections (3 [...] Resolved: 03-22-2022 Episodic Other connective tissue disease (3 sources) Pain in right foot; Translations: [Pain in right foot] Onset: 11-26-2024 Episodic Other ear and sense organ disorders (2 sources) Otalgia, left ear; Translations: [Otalgia, unspecified] 07-26-2024 Episodic Other ear and sense organ disorders (2 sources) Ear sensations - finding; Translations: [Other specified disorders of left ear] 07-26-2024 Episodic Other nervous system disorders (1 source) Other acute postprocedural pain; Translations: [Post-op pain] Onset: 12-31-2024 Episodic Other non-traumatic joint disorders (2 sources) Pain in right ankle and joints of right foot; Translations: [Chronic pain of right ankle] Onset: 04-25-2025 Episodic Residual codes; unclassified (1 source) Other [...] Test Name Value Interpretation Reference Range Facility [facility] 09-03-2025 CNOV Office Visit (LOORRM ) ----- NOEL PAUL ([id number]) 1990 F U[place] Date Time Provider Department 09/03/25 8:30 AM SEAN MATA LOORR During your visit today, we recorded the following information about you: Sean Mata DPM 09/03/2025 8:56 AM Signed PRIMARY SERVICE: [facility] SUBJECTIVE: Patient is seen today with her son present due to concerns of continued pain at her surgical site at the medial aspect of the right ankle. She has had extensive physical therapy including water therapy and has custom foot orthotics does not have any improvement Medical: PAST MEDICAL HISTORY Diagnosis Date Diabetes [...] tablet by mouth once daily. 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 DEXCOM G7 SENSOR eduin [...] 3 and in no apparent acute distress. The patient is 5 feet 2 and 339 pounds. NEUROVASCULAR: Intact and unchanged right DERMATOLOGIC: Unremarkable as related to the chief complaint right ORTHO/MUSCULOSKELETAL: Patient relates tenderness at the medial retromalleolar region of the right ankle along the posterior tibial tendon course. There is approximate -10 degrees of ankle joint dorsiflexion with the knee extended right ASSESSMENT: Morbid obesity with chronic posterior tibial tendinitis of the right lower extremity TREATMENT TODAY: Evaluation management/OV Discussed results of clinical and MRI examination with the patient in detail along with treatment options. Advised that frankly she has a very tight Achilles tendon along with a history of 2 surgeries in the medial ankle for this problem. MRI is negative for any abnormality of significance. I do think she needs to address her BMI significantly to see if that makes a difference because she does have a tight Achilles tendon which puts a lot of stress on the posterior tibial tendon. She said supportive shoes do not help any nor do custom foot orthotics. Patient to assess and will follow-up as needed pending progress as I feel she has reached MMI from my standpoint. SIGNATURE: Sean Mata DPM DATE of SERVICE: 09/03/2025 TIME of SERVICE: 8:52 AM Allergies As of Date: 09/03/2025 Noted Allergy Reaction SULFA (SULFONAMIDE ANTIBIOTICS) 03/29/2024 4 - Hives 2 - Rash Date Reviewed: 09/03/2025 Reviewed by: Natalia Barrios CT - Fully Assessed Reason for Visit: Pain [78] Follow Up [171] Primary Visit Diagnosis:S/P foot surgery, right [Z98.890] Other Visit Diagnosis:Chronic pain of right ankle [M25.571, G89.29] Prescriptions as of 09/03/2025 - keTORolac (TORADOL) 10 mg tablet Take 1 tablet by mouth every 6 hours as needed. with food. - aspirin 325 mg tablet Take 1 tablet by mouth once daily. - DEXCOM G7 SHEET ROCK APPLIER misc as directed. - DEXCOM G7 SENSOR [...] BEDTIME NEEDED Problem List As Of Date 09/03/2025 Noted Resolved Acid reflux [K21.9] 07/21/2024 Anxiety [F41.9] 07/21/2024 Diabetes mellitus (more content not included)... Normal [facility] CT angio chest PE protocolon 06-16-2025 CT angio chest PE protocol [facility] [address] CT Scan Report Signed Patient: Noel Paul MR#: [id number] : 1990 Acct:[id number] Age/Sex: 34 / F ADM Date: 06/15/25 Loc: Room: [address] [place] [address] Type: ADM INOo Attending Dr: Mitch Galaviz [...] Prince M.D. 06/16/2025 12:11 PM Dictation Location: [place] [address] Transcribed By: [facility] 06/16/25 1211 Dictated By: Joshua Prince MD 06/16/25 1208 Signed By: 06/16/25 1211 Normal [facility] ECG 12 lead ECGon 06-16-2025 ECG 12 lead ECG [facility] [place] [address] Electrocardiograph Report Signed Patient: Noel Paul MR#: [id number] : 1990 Acct:[id number] Age/Sex: 34 / F ADM Date: 06/15/25 Loc: Room: [address] [place] [address] Type: ADM INOo Attending Dr: Mitch Galaviz [...] rhythm Normal ECG Confirmed by Inge Adler ([id number]) on 06/16/2025 10:58:02 AM Referred By: Electronically Signed By: Inge Adler Transcribed By: MUS Signed By Inge Adler MD 5 1058 Normal [facility] Glucose Poct Glucometerson 0 06-16-2025 Glucose [Mass/Vol] 106 mg/dL Normal [facility] Comment on above: Result Comment: [place] om Glucose Reference Range is dependent on time and content of last meal. Glucose of more than 200 mg/dL in a nonstressed, ambulatory subject supports the diagnosis of Diabetes Mellitus. PERFORMED BY: [place] [address] PATHOLOGIST SEWING INSPECTOR CHANEL ROMERO M.D. Performed By: #### G LULS #### Point of Care testing , Commemt1 Glu2: Cleaned Meter Normal [facility] Comment on above: Result Comment: PERF ORMED BY: [place] [address] PATHOLOGIST SEWING INSPECTOR CHANEL ROMERO M.D. Performed By: #### G LULS #### Point of Care testing , Glucose [Mass/Vol] 124 mg/dL Normal [facility] Comment on above: Result Comment: [place] om Glucose Reference Range is dependent on time and content of last meal. Glucose of more than 200 mg/dL in a nonstressed, ambulatory subject supports the diagnosis of Diabetes Mellitus. Performed By: #### G LULS #### Point of Care testing , Commemt1 Glu2: Cleaned Meter Normal [facility] Comment on above: Result Comment: PERF ORMED BY: [place] [id number] PATHOLOGIST SEWING INSPECTOR CHANEL ROMERO M.D. Performed By: #### G LULS #### Point of Care testing , Glucose [Mass/Vol] 125 mg/dL Normal [facility] Comment on above: Result Comment: [place] om Glucose Reference Range is dependent on time and content of last meal. Glucose of more than 200 mg/dL in a nonstressed, ambulatory subject supports the diagnosis of Diabetes Mellitus. Performed By: #### G LULS #### Point of Care testing , Troponin I High Sensitivityo n 06-16-2025 Troponin I High Sensitivity 3 Normal 0-15 [facility] Comment on above: Result Comment: The Troponin units of report have been changed to meet the Chest Pain Accreditation requirement, element EC5.M1l2. Troponin units are changed from pg/ml to ng/L. Also, the decimal is removed and results are in whole numbers. PERFORMED BY: [place] [address] PATHOLOGIST SEWING INSPECTOR CHANEL ROMERO M.D. Performed By: #### G LULS #### Point of Care testing , A1C with Estimated Average Madyson curtismichoacano 06-15-2025 Glucose [Mass/Vol] 137 mg/dL Normal [facility] Comment on above: Result Comment: PERF ORMED BY: [place] [address] PATHOLOGIST SEWING INSPECTOR CHANEL ROMERO M.D. Performed By: #### H S TROP #### [address] HbA1c (Bld) [Mass fraction] 6.4 % High 4.3-5.6 [facility] Comment on above: Result Comment: Incr eased risk for diabetes: 5.7 - 6.4 diabetes: >6.4 glycemic control for adults with diabetes: <7.0 Performed By: #### H S TROP #### [address] Basic Metabolic Panelon 07- Anion gap [Moles/Vol] 10.1 mmol/L Normal 6.0-15.0 Th e [facility] Comment on above: Performed By: #### H S TROP #### [address] Calcium [Mass/Vol] 8.7 mg/dL Normal 8.6-10.3 [facility] Comment on above: Performed By: #### H S TROP #### [facility] [address] [place] [address] [place] Chloride [Moles/Vol] 103 mmol/L Normal 98-107 [facility] Comment on above: Performed By: #### H S TROP #### [facility] [address] [place] [address] [place] CO2 [Moles/Vol] 30.9 mmol/L Normal 21.0-31.0 [facility] Comment on above: Performed By: #### H S TROP #### [place] [address] [place] Creatinine [Mass/Vol] 0.86 mg/dL Normal 0.60-1.20 [facility] Comment on above: Performed By: #### H S TROP #### [place] [address] [place] Creatinine Clr Calc Pharmacy 129.66 Normal [facility] Comment on above: Performed By: #### H S TROP #### [place] [address] [place] GFR/1.73 sq M.predicted MDRD (S/P/Bld) [Vol rate/Area] mL/min/{1.73_m2} Normal [facility] Comment on above: Performed By: #### H S TROP #### [address] Glucose [Mass/Vol] 123 mg/dL High 70-100 [facility] Comment on above: Result Comment: [place] Glucose Reference Range is dependent on time and content of last meal. Glucose of more than 200 mg/dL in a nonstressed, ambulatory subject supports the diagnosis of Diabetes Mellitus. ADA recommended reference range Performed By: #### H S TROP #### [place] [address] [place] Potassium [Moles/Vol] 4.0 mmol/L Normal 3.5-5.1 [facility] Comment on above: Performed By: #### H S TROP #### [place] [address] [place] Sodium [Moles/Vol] 140 mmol/L Normal 136-145 [facility] Comment on above: Performed By: #### H S TROP #### [address] Urea nitrogen [Mass/Vol] 17 mg/dL Normal 7-25 [facility] Comment on above: Performed By: #### H S TROP #### [address] Complete Blood Count Auto Di ffon 06-15-2025 Basophils (Bld) [#/Vol] 0.1 10*3/uL Normal 0.0-0.2 [facility] Comment on above: Result Comment: PERF ORMED BY: [place] [address] PATHOLOGIST SEWING INSPECTOR CHANEL ROMERO M.D. Performed By: #### H S TROP #### [address] Basophils/100 WBC (Bld) 0.7 % Normal . [facility] Comment on above: Performed By: #### H S TROP #### [address] Eosinophils (Bld) [#/Vol] 0.3 10*3/uL Normal 0.0-0.45 [facility] Comment on above: Performed By: #### H S TROP #### [address] Eosinophils/100 WBC (Bld) 2.8 % Normal . [facility] Comment on above: Performed By: #### H S TROP #### [address] Erythrocyte distribution width (RBC) [Ratio] 17.1 % High 11.9-15.3 [facility] Comment on above: Performed By: #### H S TROP #### [address] Hematocrit (Bld) [Volume fraction] 36.5 % Normal 34.0-46.4 [facility] Comment on above: Performed By: #### H S TROP #### [address] Hemoglobin (Bld) [Mass/Vol] 11.6 g/dL Low 11.8-15.4 [facility] Comment on above: Performed By: #### H S TROP #### [address] Lymphocytes (Bld) [#/Vol] 1.9 10*3/uL Normal 1.00-4.8 [facility] Comment on above: Performed By: #### H S TROP #### [address] Lymphocytes/100 WBC (Bld) 16.9 % Normal . [facility] Comment on above: Performed By: #### H S TROP #### [address] MCH (RBC) [Entitic mass] 25.0 pg Normal 24.7-34.3 [facility] Comment on above: Performed By: #### H S TROP #### [address] MCV (RBC) [Entitic vol] 78.4 fL Low 80-100 [facility] Comment on above: Performed By: #### H S TROP #### [address] Mean Corpuscular HGB Conc 31.9 g/dL Low 32.0-35.0 [facility] Comment on above: Performed By: #### H S TROP #### [address] Monocytes (Bld) [#/Vol] 0.6 10*3/uL Normal 0.0-0.8 [facility] Comment on above: Performed By: #### H S TROP #### [place] [address] [place] Monocytes/100 WBC (Bld) 5.6 % Normal . [facility] Comment on above: Performed By: #### H S TROP #### [address] Neutrophils (Bld) [#/Vol] 8.3 10*3/uL High 1.8-7.7 [facility] Comment on above: Performed By: #### H S TROP #### [address] Neutrophils/100 WBC (Bld) 74.0 % Normal . [facility] Comment on above: Performed By: #### H S TROP #### [address] NRBC% 0.1 /100{WBC} Normal 0-0.5 The [facility] Comment on above: Performed By: #### H S TROP #### [address] Platelet mean volume (Bld) [Entitic vol] 7.4 fL Normal 6.3-10.7 The [facility] Comment on above: Performed By: #### H S TROP #### [address] Platelets (Bld) [#/Vol] 349 10*3/uL Normal 150-450 [facility] Comment on above: Performed By: #### H S TROP #### [address] RBC (Bld) [#/Vol] 4.65 10*6/uL Normal 3.60-5.00 [facility] Comment on above: Performed By: #### H S TROP #### [address] WBC (Bld) [#/Vol] 11.2 10*3/uL Normal 3.8-11.6 [facility] Comment on above: Performed By: #### H S TROP #### [address] White Blood Count 11.2 [CFU]/mL Normal 3.8-11.6 [facility] Comment on above: Performed By: #### H S TROP #### [address] ECG 12 lead ECGon 06-15-2025 ECG 12 lead ECG [facility] Main [address] [address] Electrocardiograph Report Signed Patient: Noel Paul MR#: [id number] : 1990 Acct:[id number] Age/Sex: 34 / F ADM Date: 06/15/25 Loc: Room: [address] [place] [address] Type: ADM INOo Attending Dr: Mitch aGlaviz MD Ordering Provider: Mitch Galaviz MD Date [...] rhythm Normal ECG Confirmed by Inge Adler ([id number]) on 06/15/2025 7:22:48 PM Referred By: Electronically Signed By: Inge Adler Transcribed By: MUS Signed By Inge Adler MD 1921 Normal [facility] ECG 12 lead ECG [place] [id number] Electrocardiograph Report Signed Patient: Noel Paul MR#: [id number] : 1990 Acct:[id number] Age/Sex: 34 / F ADM Date: 06/15/25 Loc: Room: [address] [place] [address] Type: ADM INOo Attending Dr: Mitch Galaviz [...] rhythm Normal ECG Confirmed by Inge Adler ([id number]) on 06/15/2025 7:22:44 PM Referred By: Electronically Signed By: Inge Adler Transcribed By: MUS Signed By Inge Adler MD 1921 Normal [facility] echo transthoracicon [facility] echo transthoracic [facility] Main [place] [address] [place], [place] [id number] Echocardiogram Signed Patient: Noel Paul MR#: [id number] : 1990 Acct:[id number] Age/Sex: 34 / F ADM Date: 06/15/25 Loc: Room: [address] [place] [address] Type: ADM INOo Attending Dr: Mitch Galaviz MD Ordering Provider: Inge Adler MD Date of Service: 06/15/25 [facility] echo transthoracic: Chest pain Copies to: [...] Signed By: Inge Adler MD 06/15/25 1758 Normal [facility] Glucose Poct Glucometerson 0 06-15-2025 Commemt1 Glu2: Cleaned Meter Normal [facility] Comment on above: Result Comment: PERF ORMED BY: [facility] [address] [place] [address] PATHOLOGIST SEWING INSPECTOR CHANEL ROMERO M.D. Performed By: #### G LULS #### Point of Care testing , Glucose [Mass/Vol] 111 mg/dL Normal [facility] Comment on above: Result Comment: [place] Glucose Reference Range is dependent on time and content of last meal. Glucose of more than 200 mg/dL in a nonstressed, ambulatory subject supports the diagnosis of Diabetes Mellitus. Performed By: #### G LULS #### Point of Care testing , Glucose [Mass/Vol] 108 mg/dL Normal [facility] Comment on above: Result Comment: [place] om Glucose Reference Range is dependent on time and content of last meal. Glucose of more than 200 mg/dL in a nonstressed, ambulatory subject supports the diagnosis of Diabetes Mellitus. PERFORMED BY: [address] [place] [id number] PATHOLOGIST SEWING INSPECTOR CHANEL ROMERO M.D. Performed By: #### G LULS #### Point of Care testing , Glucose [Mass/Vol] 74 mg/dL Normal [facility] Comment on above: Result Comment: [place] om Glucose Reference Range is dependent on time and content of last meal. Glucose of more than 200 mg/dL in a nonstressed, ambulatory subject supports the diagnosis of Diabetes Mellitus. PERFORMED BY: [place] [id number] PATHOLOGIST SEWING INSPECTOR CHANEL ROMERO M.D. Performed By: #### G LULS #### Point of Care testing , Commemt1 Glu2: Cleaned Meter Normal [facility] Comment on above: Result Comment: PERF ORMED BY: [place] [id number] PATHOLOGIST SEWING INSPECTOR CHANEL ROMERO M.D. Performed By: #### G LULS #### Point of Care testing , Glucose [Mass/Vol] 88 mg/dL Normal [facility] Comment on above: Result Comment: [place] om Glucose Reference Range is dependent on time and content of last meal. Glucose of more than 200 mg/dL in a nonstressed, ambulatory subject supports the diagnosis of Diabetes Mellitus. Performed By: #### G LULS #### Point of Care testing , Commemt1 Glu2: Cleaned Meter Normal [facility] Comment on above: Result Comment: PERF ORMED BY: [place] [id number] PATHOLOGIST SEWING INSPECTOR CHANEL ROMERO M.D. Performed By: #### G LULS #### Point of Care testing , Glucose [Mass/Vol] 79 mg/dL Normal [facility] Comment on above: Result Comment: [place] om Glucose Reference Range is dependent on time and content of last meal. Glucose of more than 200 mg/dL in a nonstressed, ambulatory subject supports the diagnosis of Diabetes Mellitus. Performed By: #### G LULS #### Point of Care testing , Glucose [Mass/Vol] 64 mg/dL Normal [facility] Comment on above: Result Comment: [place] Glucose Reference Range is dependent on time and content of last meal. Glucose of more than 200 mg/dL in a nonstressed, ambulatory subject supports the diagnosis of Diabetes Mellitus. PERFORMED BY: [place] [address] PATHOLOGIST SEWING INSPECTOR CHANEL ROMERO M.D. Performed By: #### G LULS #### Point of Care testing , Glucose [Mass/Vol] 94 mg/dL Normal [facility] Comment on above: Result Comment: [place] Glucose Reference Range is dependent on time and content of last meal. Glucose of more than 200 mg/dL in a nonstressed, ambulatory subject supports the diagnosis of Diabetes Mellitus. PERFORMED BY: [place] [address] PATHOLOGIST SEWING INSPECTOR CHANEL ROMERO M.D. Performed By: #### G LULS #### Point of Care testing , Commemt1 Glu2: Cleaned Meter Normal [facility] Comment on above: Result Comment: PERF ORMED BY: [facility] [address] [place] [id number] PATHOLOGIST SEWING INSPECTOR CHANEL ROMERO M.D. Performed By: #### G LULS #### Point of Care testing , Glucose [Mass/Vol] 115 mg/dL Normal [facility] Comment on above: Result Comment: [place] Glucose Reference Range is dependent on time and content of last meal. Glucose of more than 200 mg/dL in a nonstressed, ambulatory subject supports the diagnosis of Diabetes Mellitus. Performed By: #### G LULS #### Point of Care testing , Commemt1 Glu2: Cleaned Meter Normal [facility] Comment on above: Result Comment: PERF ORMED BY: [place] [address] PATHOLOGIST SEWING INSPECTOR CHANEL ROMERO M.D. Performed By: #### G LULS #### Point of Care testing , Glucose [Mass/Vol] 135 mg/dL Normal [facility] Comment on above: Result Comment: [place] Glucose Reference Range is dependent on time and content of last meal. Glucose of more than 200 mg/dL in a nonstressed, ambulatory subject supports the diagnosis of Diabetes Mellitus. Performed By: #### G LULS #### Point of Care testing , Lipid Panelon 06-15-2025 Cholesterol [Mass/Vol] 158 mg/dL Normal 140-[address] [facility] Comment on above: Result Comment: Chol less than 200 mg/dl low risk Chol 201-239 mg/dl borderline risk Chol 240 mg/dl and greater high risk Performed By: #### H S TROP #### [address] Cholesterol in HDL [Mass/Vol] 31 mg/dL Normal 23-92 [facility] Comment on above: Result Comment: HDL CHOL ATP-III CLASSIFICATION Cardiovascular Risk HDL > or equal to 60 mg/dL LOW HDL < 40 mg/dL HIGH Performed By: #### H S TROP #### [place] [id number] [facility] Cholesterol.total/Chol esterol in HDL [Mass ratio] 5.1 {ratio} Normal <5.0 [facility] Comment on above: Result Comment: PERF ORMED BY: [place] [address] PATHOLOGIST SEWING INSPECTOR CHANEL ROMERO M.D. Performed By: #### H S TROP #### [address] LDL Cholesterol,Calculated 88 mg/dL Normal 0-100 [facility] Comment on above: Result Comment: LDL ATP III CLASSIFICATION LDL less than 100 mg/dL Optimal LDL 100-129 mg/dL Near or above optimal LDL 130-159 mg/dL Borderline high LDL 160-189 mg/dL High LDL greater than 189 mg/dL Very high Performed By: #### H S TROP #### [address] Triglyceride w/Reflex 197 mg/dL High 0-149 [facility] Comment on above: Result Comment: TRIG ATP III CLASSIFICATION TRIG less than 150 mg/dL Normal TRIG 150-199 mg/dL Borderline high TRIG 200-500 mg/dL High TRIG greater than 500 mg/dL Very high Standard traceable to the Center for Disease Conrtrol and Prevention (CDC) test method. Performed By: #### H S TROP #### [address] VLDL CHOLESTEROL 39 mg/dL Normal [facility] Comment on above: Performed By: #### H S TROP #### [address] Magnesiumon 06-15-2025 Magnesium [Mass/Vol] 1.8 mg/dL Low 1.9-2.7 [facility] Comment on above: Performed By: #### H S TROP #### [place] [address] [place] Troponin I High Sensitivityo n 06-15-2025 Troponin I High Sensitivity 3 Normal 0-15 [facility] Comment on above: Result Comment: The Troponin units of report have been changed to meet the Chest Pain Accreditation requirement, element EC5.M1l2. Troponin units are changed from pg/ml to ng/L. Also, the decimal is removed and results are in whole numbers. PERFORMED BY: [place] [address] PATHOLOGIST SEWING INSPECTOR CHANEL ROMERO M.D. Performed By: #### H S TROP #### [address] Troponin I High Sensitivity 4 Normal 0-15 [facility] Comment on above: Result Comment: The Troponin units of report have been changed to meet the Chest Pain Accreditation requirement, element EC5.M1l2. Troponin units are changed from pg/ml to ng/L. Also, the decimal is removed and results are in whole numbers. PERFORMED BY: [place] [address] PATHOLOGIST SEWING INSPECTOR CHANEL ROMERO M.D. Performed By: #### H S TROP #### [address] Troponin I High Sensitivity 3 Normal 0-15 [facility] Comment on above: Result Comment: The Troponin units of report have been changed to meet the Chest Pain Accreditation requirement, element EC5.M1l2. Troponin units are changed from pg/ml to ng/L. Also, the decimal is removed and results are in whole numbers. PERFORMED BY: [place] [address] PATHOLOGIST SEWING INSPECTOR CHANEL ROMERO M.D. Performed By: #### G LULS #### Point of Care testing , Troponin I.cardiac [Mass/vol ume] in Serum or Plasma by Detection limit <= 0.01 ng/mLOrdered By: Marek Dennis on 06-15-2025 Troponin I.cardiac DL <= 0.01 ng/mL [Mass/Vol] 3 ng/L 0-15 [facility] Comment on above: The Troponin units o f report have been changed to meet the Chest Pain Accreditation requirement, element EC5.M1l2. Troponin units are changed from pg/ml to ng/L. Also, the decimal is removed and results are in whole numbers. BNP ser/plasOrdered By: Kolton Dennis on 06-14-2025 Natriuretic peptide B (Bld) [Mass/Vol] 20.0 pg/mL Normal 5-100 [facility] Comment on above: Result Comment: PERF ORMED BY: [place] [address] PATHOLOGIST SEWING INSPECTOR CHANEL ROMERO M.D. Performed By: #### G LULS #### Point of Care testing , Basic Metabolic Panelon 05-28 Creatinine Clr Calc Pharmacy 109.28 Normal [facility] Comment on above: Result Comment: PERF ORMED BY: [place] [address] PATHOLOGIST SEWING INSPECTOR CHANEL ROMERO M.D. Performed By: #### G LULS #### Point of Care testing , GFR/1.73 sq M.predicted MDRD (S/P/Bld) [Vol rate/Area] mL/min/{1.73_m2} Normal [facility] Comment on above: Performed By: #### G LULS #### Point of Care testing , Basophils [#/volume] in Bloo d by Automated countOrdered By: PROVIDER TEMP on 06-14-2025 Basophils (Bld) [#/Vol] 0.2 10*3/uL Normal 0.0-0.2 [facility] Comment on above: Result Comment: PERF ORMED BY: [facility] [address] [place] [address] PATHOLOGIST SEWING INSPECTOR CHANEL ROMERO M.D. Performed By: #### G LULS #### Point of Care testing , Basophils/100 leukocytes in Blood by Automated countOrdered By: PROVIDER TEMP on 06-14-2025 Basophils/100 WBC (Bld) 1.4 % Normal . [facility] Comment on above: Performed By: #### G LULS #### Point of Care testing , Calcium [Mass/volume] in Ser um or PlasmaOrdered By: PROVIDER TEMP on 06-14-2025 Calcium [Mass/Vol] 9.4 mg/dL Normal 8.6-10.3 [facility] Comment on above: Performed By: #### G LULS #### Point of Care testing , Carbon dioxide, total [Moles /volume] in Serum or PlasmaOrdered By: PROVIDER TEMP on 06-14-2025 CO2 [Moles/Vol] 27.2 mmol/L Normal 21.0-31.0 [facility] Comment on above: Performed By: #### G LULS #### Point of Care testing , Chloride [Moles/volume] in S nikkie or PlasmaOrdered By: PROVIDER TEMP on 06-14-2025 Chloride [Moles/Vol] 105 mmol/L Normal 98-107 [facility] Comment on above: Performed By: #### G LULS #### Point of Care testing , Complete Blood Count Auto Di ffon 06-14-2025 Mean Corpuscular HGB Conc 32.2 g/dL Normal 32.0-35.0 [facility] Comment on above: Performed By: #### G LULS #### Point of Care testing , Monocytes/100 WBC (Bld) 19.88 % Normal 0.00-20.00 [facility] Comment on above: Performed By: #### G LULS #### Point of Care testing , NRBC% 0.1 /100{WBC} Normal 0-0.5 [facility] Comment on above: Performed By: #### G LULS #### Point of Care testing , White Blood Count 12.4 [CFU]/mL High 3.8-11.6 [facility] Comment on above: Performed By: #### G LULS #### Point of Care testing , Creatine kinase [Enzymatic a ctivity/volume] in Serum or PlasmaOrdered By: PROVIDER TEMP on 06-14-2025 CK [Catalytic activity/Vol] 50 U/L Normal 30-223 [facility] Comment on above: Performed By: #### G LULS #### Point of Care testing , Creatinine [Mass/volume] in Serum or PlasmaOrdered By: PROVIDER TEMP on 06-14-2025 Creatinine [Mass/Vol] 0.99 mg/dL Normal 0.60-1.20 [facility] Comment on above: Performed By: #### G LULS #### Point of Care testing , D-Dimer High Sensitivityon 0 06-14-2025 D-Dimer High Sensitivity <200 Normal 0-243 [facility] Comment on above: [...] coagulation studies. Please contact the laboratory at [phone] for redraw instructions. PERFORMED BY: [address] [address] PATHOLOGIST SEWING INSPECTOR CHANEL ROMERO M.D. Performed By: #### G LULS #### Point of Care testing , ECG 12 lead ECGon 06-14-2025 ECG 12 lead ECG [facility] Main [place] [address] [place] [id number] Electrocardiograph Report Signed Patient: Noel Paul MR#: [id number] : 1990 Acct:[id number] Age/Sex: 34 / F ADM Date: 06/15/25 Loc: Room: [address] [place] [address] Type: ADM INOo Attending Dr: Neo Mclaughlin [...] By Marek Dennis DO 0300 Normal [facility] Eosinophils [#/volume] in Bl ood by Automated countOrdered By: PROVIDER TEMP on 06-14-2025 Eosinophils (Bld) [#/Vol] 0.3 10*3/uL Normal 0.0-0.45 [facility] Comment on above: Performed By: #### G LULS #### Point of Care testing , Eosinophils/100 leukocytes i n Blood by Automated countOrdered By: PROVIDER TEMP on 06-14-2025 Eosinophils/100 WBC (Bld) 2.8 % Normal . [facility] Comment on above: Performed By: #### G BARAK #### Point of Care testing , Erythrocyte distribution wid th [Ratio] by Automated countOrdered By: PROVIDER TEMP on 06-14-2025 Erythrocyte distribution width (RBC) [Ratio] 16.5 % High 11.9-15.3 [facility] Comment on above: Performed By: #### G МАРИЯLS #### Point of Care testing , Erythrocytes [#/volume] in B lood by Automated countOrdered By: PROVIDER TEMP on 06-14-2025 RBC (Bld) [#/Vol] 4.98 10*6/uL Normal 3.60-5.00 [facility] Comment on above: Performed By: #### G МАРИЯLS #### Point of Care testing , Glucose [Mass/volume] in Ser um or PlasmaOrdered By: PROVIDER TEMP on 06-14-2025 Glucose [Mass/Vol] 143 mg/dL High 70-100 [facility] Comment on above: ADA recommended refe rence rangeRandom Glucose Reference Range is dependent on time and content of last meal. Glucose of more than 200 mg/dL in a nonstressed, ambulatory subject supports the diagnosis of Diabetes Mellitus. Result Comment: [place] Glucose Reference Range is dependent on time and content of last meal. Glucose of more than 200 mg/dL in a nonstressed, ambulatory subject supports the diagnosis of Diabetes Mellitus. ADA recommended reference range Performed By: #### G BARAK #### Point of Care testing , Hematocrit [Volume Fraction] of Blood by Automated countOrdered By: PROVIDER TEMP on 06-14-2025 Hematocrit (Bld) [Volume fraction] 38.6 % Normal 34.0-46.4 [facility] Comment on above: Performed By: #### G МАРИЯLS #### Point of Care testing , Hemoglobin [Mass/volume] in BloodOrdered By: PROVIDER TEMP on 06-14-2025 Hemoglobin (Bld) [Mass/Vol] 12.4 g/dL Normal 11.8-15.4 [facility] Comment on above: Performed By: #### G BARAK #### Point of Care testing , INR in Platelet poor plasma by Coagulation assayOrdered By: Marke Dennis on 06-14-2025 INR Coag (PPP) [Relative time] 1.0 {INR} Normal [facility] Comment on above: INR Therapeutic Rang [...] heart valves: 3 - 4.5 PERFORMED BY: [place] [address] [place] [address] PATHOLOGIST SEWING INSPECTOR CHANEL ROMERO M.D. Performed By: #### G BARAK #### Point of Care testing , Leukocytes [#/volume] correc ramos for nucleated erythrocytes in Blood by Automated counOrdered By: PROVIDER TEMP on 06-14-2025 WBC corrected for nucl RBC Auto (Bld) [#/Vol] 12.4 10*3/uL High 3.8-11.6 [facility] Leukocytes [#/volume] in Blo od by Automated countOrdered By: PROVIDER TEMP on 06-14-2025 WBC (Bld) [#/Vol] 12.4 10*3/uL High 3.8-11.6 [facility] Comment on above: Performed By: #### G BARAK #### Point of Care testing , Lymphocytes [#/volume] in Bl ood by Automated countOrdered By: PROVIDER TEMP on 06-14-2025 Lymphocytes (Bld) [#/Vol] 2.0 10*3/uL Normal 1.00-4.8 [facility] Comment on above: Performed By: #### G LULS #### Point of Care testing , Lymphocytes/100 leukocytes i n Blood by Automated countOrdered By: PROVIDER TEMP on 06-14-2025 Lymphocytes/100 WBC (Bld) 15.9 % Normal . [facility] Comment on above: Performed By: #### G LULS #### Point of Care testing , MCH [Entitic mass] by Automa ramos countOrdered By: PROVIDER TEMP on 06-14-2025 MCH (RBC) [Entitic mass] 25.0 pg Normal 24.7-34.3 [facility] Comment on above: Performed By: #### G LULS #### Point of Care testing , MCHC Auto (RBC) [Mass/Vol]Or dered By: PROVIDER TEMP on 06-14-2025 MCHC (RBC) [Mass/Vol] 32.2 g/dL 32.0-35.0 [facility] MCV [Entitic volume] by Auto mated countOrdered By: PROVIDER TEMP on 06-14-2025 MCV (RBC) [Entitic vol] 77.6 fL Low 80-100 [facility] Comment on above: Performed By: #### G LULS #### Point of Care testing , Monocyte distribution width [Entitic volume] in Blood by AutomatedOrdered By: PROVIDER TEMP on 06-14-2025 Monocyte distribution width Auto (Bld) [Entitic vol] 19.88 % 0.00-20.00 [facility] Monocytes [#/volume] in Bloo d by Automated countOrdered By: PROVIDER TEMP on 06-14-2025 Monocytes (Bld) [#/Vol] 0.6 10*3/uL Normal 0.0-0.8 [facility] Comment on above: Performed By: #### G LULS #### Point of Care testing , Monocytes/100 leukocytes in Blood by Automated countOrdered By: PROVIDER TEMP on 06-14-2025 Monocytes/100 WBC (Bld) 5.2 % Normal . [facility] Comment on above: Performed By: #### G LULS #### Point of Care testing , Neutrophils [#/volume] in Bl ood by Automated countOrdered By: PROVIDER TEMP on 06-14-2025 Neutrophils (Bld) [#/Vol] 9.3 10*3/uL High 1.8-7.7 [facility] Comment on above: Performed By: #### G LULS #### Point of Care testing , Neutrophils/100 leukocytes i n Blood by Automated countOrdered By: PROVIDER TEMP on 06-14-2025 Neutrophils/100 WBC (Bld) 74.7 % Normal . [facility] Comment on above: Performed By: #### G LULS #### Point of Care testing , No Panel InformationOrdered By: PROVIDER TEMP on 06-14-2025 Estimated GFR (CKD-EPI) > 60.0 mL/Min [facility] Creatinine Clearance (Chem 109.28 [facility] Nucleated erythrocytes [Pres ence] in Blood by Automated countOrdered By: PROVIDER TEMP on 06-14-2025 Nucleated RBC Auto Ql (Bld) 0.1 /100{WBC} 0-0.5 [facility] Platelet mean volume [Entiti c volume] in Blood by Automated countOrdered By: PROVIDER TEMP on 06-14-2025 Platelet mean volume (Bld) [Entitic vol] 7.5 fL Normal 6.3-10.7 [facility] Comment on above: Performed By: #### G LULS #### Point of Care testing , Platelets [#/volume] in Bloo d by Automated countOrdered By: PROVIDER TEMP on 06-14-2025 Platelets (Bld) [#/Vol] 361 10*3/uL Normal 150-450 [facility] Comment on above: Performed By: #### G LULS #### Point of Care testing , Potassium [Moles/volume] in Serum or PlasmaOrdered By: PROVIDER TEMP on 06-14-2025 Potassium [Moles/Vol] 3.7 mmol/L Normal 3.5-5.1 [facility] Comment on above: Performed By: #### G LULS #### Point of Care testing , Prothrombin time (PT)Ordered By: Marek Dennis on 06-14-2025 PT Coag (PPP) [Time] 11.5 s Normal 9.0-12.9 [facility] Comment on above: A hematocrit value g reater than 55% may lead to inaccurate results in coagulation testing. Patients having hematocrit values >55% require a special collection tube for coagulation studies. Please contact the laboratory at [phone] for redraw instructions. Result Comment: A he matocrit value greater than 55% may lead to inaccurate results in coagulation testing. Patients having hematocrit values >55% require a special collection tube for coagulation studies. Please contact the laboratory at [phone] for redraw instructions. Performed By: #### G LULS #### Point of Care testing , Serum or plasma anion gap de terminationOrdered By: PROVIDER TEMP on 06-14-2025 Anion gap [Moles/Vol] 11.5 mmol/L Normal 6.0-15.0 [facility] Comment on above: Performed By: #### G LULS #### Point of Care testing , Sodium [Moles/volume] in Ser um or PlasmaOrdered By: PROVIDER TEMP on 06-14-2025 Sodium [Moles/Vol] 140 mmol/L Normal 136-145 [facility] Comment on above: Performed By: #### G LULS #### Point of Care testing , Troponin I High Sensitivityo n 06-14-2025 Troponin I High Sensitivity 3 Normal 0-15 [facility] Comment on above: Result Comment: The Troponin units of report have been changed to meet the Chest Pain Accreditation requirement, element EC5.M1l2. Troponin units are changed from pg/ml to ng/L. Also, the decimal is removed and results are in whole numbers. PERFORMED BY: [facility] [address] [place] [address] PATHOLOGIST SEWING INSPECTOR CHANEL ROMERO M.D. Performed By: #### G LULS #### Point of Care testing , Urea nitrogen [Mass/volume] in Serum or PlasmaOrdered By: PROVIDER TEMP on 06-14-2025 Urea nitrogen [Mass/Vol] 16 mg/dL Normal 7-25 [facility] Comment on above: Performed By: #### G LULS #### Point of Care testing , X-ray reportOrdered By: Fermín Wilks on 06-14-2025 Study report [facility] Main [address] [address] XRay Report Signed Patient: Noel Paul MR#: [id number] : 1990 Acct:[id number] Age/Sex: 34 / F ADM Date: 5 Loc: ER Room: Type: PRE ER Attending Dr: Copies to: DO ABRAHAN French, PROVIDER~ Ordering Provider: TEMCristine, PROVIDER Date of Service: 06/14/25 XR/XR chest 2V*: [...] Wilks M.D. 06/14/2025 10:57 PM Dictation Location: [place] [address] Transcribed By: [facility] 06/14/252256 Dictated By: Fermín Wilks II, MD 06/14/252255 Signed By: 06/14/252256 [facility] Work Phone: XR chest 2V*on 06-14-2025 XR chest 2V* [facility] Main [address] [address] XRay Report Signed Patient: Noel Paul MR#: [id number] : 1990 Acct:[id number] Age/Sex: 34 / F ADM Date: 06/14/25 Loc: ER Room: Type: PRE ER Attending Dr: Copies to: DO ABRAHAN French, PROVIDER Ordering Provider: TEMCristine, PROVIDER Date of Service: 06/14/25 XR/XR chest 2V*: [...] Wilks M.D. 06/14/2025 10:57 PM Dictation Location: [facility] Transcribed By: DANIELLE 06/14/252256 Dictated By: Fermín Wilks II, MD 06/14/252255 Signed By: 06/14/252256 Normal [facility] MR Ankle - right WO contrast on 06-06-2025 IMPRESSION: 1. Postoperative changes of posterior tibialis tendon reattachment with marked thickening of the distal tendon probably due to degeneration or postoperative scarring. No evidence of a complete tear. 2. Tenosynovitis at the master knot of Luis. 3. Chronic changes in the deltoid and spring ligaments as described. Fence Making Machine Operator: [facility] Transcribe Date/Time: Jun 06 2025 11:37A Dictated by : RADHA TYSON MD This examination was interpreted and the report reviewed and electronically signed by: KATIANA FLORES MD on Jun 06 2025 2:13PM [facility] DIVISION OF RADIOLOGY * * *Final Report* * * DATE OF EXAM: Jun 06 2025 8:43AM [facility] 0164 - MRI ANKLE WO IVCON [...] significant additional findings. DIVISION OF RADIOLOGY Provider, [facility] - 06/06/2025 * * *Final Report* * * DATE OF EXAM: Jun 06 2025 8:43AM [facility] 0164 - MRI ANKLE WO IVCON [...] the deltoid and spring ligaments as described. Fence Making Machine Operator: H[facility] Transcribe Date/Time: Jun 06 2025 11:37A Dictated by : RADHA TYSON MD This examination was interpreted and the report reviewed and electronically signed by: KATIANA FLORES MD on Jun 06 2025 2:13PM EST [facility] Radiology Study observation (narrative) [facility] MR Ankle - right WO contrast Ordered By: [facility] Provider on 06-06-2025 [facility] MRI ANKLE WO IVCON RTon 05-28 MRI ANKLE WO IVCON RT * * *Final Report* * * DATE OF EXAM: Jun 06 2025 8:43AM [facility] 0164 - MRI ANKLE WO IVCON [...] the deltoid and spring ligaments as described. Fence Making Machine Operator: HERNÁN Transcribe Date/Time: Jun 06 2025 11:37A Dictated by : RADHA TYSON MD This examination was interpreted and the report reviewed and electronically signed by: KATIANA FLORES MD on Jun 06 2025 2:13PM EST [id number] Normal [facility] Vaibhav 05-17-2025 [place] Telephone (RAYMONDORRMadi) ----- NOEL PAUL ([id number]) 1990 F [facility] Date Time Provider Department 05/17/25 SEAN MATA During your visit today, we recorded the following information about you: Natalia Barrios, CT 05/17/2025 12:02 PM Signed Patients boot in no longer inflating or button is broken. Her mother will be coming in this way next week. She will bring the boot to change it out. Patient lives in [place]. Allergies As of Date: 05/17/2025 Noted Allergy [...] by mouth once daily. - DEXCOM G7 SHEET ROCK APPLIER misc as directed. - DEXCOM G7 SENSOR [...] Encounter Status:Closed by NATALIA BARRIOS on 06/04/25 [facility] CNOVon 05-16-2025 CNOV Office Visit (LOORRM ) ----- NOEL PAUL ([id number]) 1990 F [facility] Date Time Provider Department 05/16/25 2:30 PM SEAN MATA During your visit today, we recorded the following information about you: Sean Mata DPM 05/16/2025 2:44 PM Signed Medical intake sheet from May 16, 2025 , was updated by patient, reviewed, and was made part of the patient's chart. Sean Mata DPM PRIMARY SERVICE: [facility] SUBJECTIVE: Patient is seen today for [...] tablet by mouth once daily. 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 DEXCOM G7 SENSOR eduin [...] [M25.571, G89.29] Order(s):MRI ANKLE WO IVCON RIGHT [[id number]] Order #: [id number] FUTURE Prescriptions as of 05/16/2025 - keTORolac (TORADOL) 10 mg tablet Take 1 tablet by mouth every 6 hours as needed. with food. - aspirin 325 mg tablet Take 1 tablet by mouth once daily. - DEXCOM G7 SHEET ROCK APPLIER misc as directed. - DEXCOM G7 SENSOR [...] BMI 60. (more content not included)... Normal [facility] CNOV Office Visit (LOORR ) ----- NOEL PAUL ([id number]) 1990 F [place] Date Time Provider Department 05/16/25 2:00 PM CAST [employer] JOI BLANKENSHIP During your visit today, we [...] by mouth once daily. - DEXCOM G7 SHEET ROCK APPLIER misc as directed. - DEXCOM G7 SENSOR [...] Encounter Status:Closed by BEVERLY DOBSON on 05/16/25 [facility] Pop 05-06-2025 CNOV Office Visit (LOORRM ) ----- NOEL PAUL ([id number]) 1990 F [facility] Date Time Provider Department 05/06/25 4:00 PM CAST [employer] JOI BLANKENSHIP During your visit today, we [...] by mouth once daily. - DEXCOM G7 SHEET ROCK APPLIER misc as directed. - DEXCOM G7 SENSOR [...] Encounter Status:Closed by BEVERLY DOBSON on 05/06/25 [facility] Additional Injections: R sub talar [...] these instructions. Informed Consent Consent Obtained: Verbal [place] Protocol A moment to CARE was completed. [...] the bedside nurse for hospitalized patients) applicable. [facility] CNOVon 04-25-2025 CNOV Office Visit (LOORRM ) ----- SUZINOEL ORTIZ ([id number]) 1990 F [facility] Date Time Provider Department 04/25/25 3:00 PM CAST TECH JOI BLANKENSHIP During your visit today, we recorded the following information about you: Beverly Dobson, Cast Tech 04/25/2025 3:14 PM Signed Applied A Short Leg Weightbearing Cast to the right leg. Instructions on cast care given. A medium Cast Shoe was dispensed. Will f/u as scheduled/prn. Beverly Dobson CT Allergies As of Date: 04/25/2025 Noted [...] by mouth once daily. - DEXCOM G7 SHEET ROCK APPLIER misc as directed. - DEXCOM G7 SENSOR [...] Encounter Status:Closed by BEVERLY DOBSON on 04/25/25 [facility] Office Visit (LOORRM ) ----- NOEL PAUL ([id number]) 1990 F [facility] Date Time Provider Department 04/25/25 2:00 PM SEAN MATA During your visit today, we recorded the following information about you: Sean Mata DPM 04/25/2025 2:38 PM Signed PRIMARY SERVICE: [facility] SUBJECTIVE: Patient is seen today for [...] by mouth once daily. - DEXCOM G7 SHEET ROCK APPLIER misc as directed. - DEXCOM G7 SENSOR [...] these instructions. Informed Consent Consent Obtained: Verbal [place] Protocol A moment to CARE was completed. [...] right [M25.571] Order(s):Additional Injections: R subtalar joint [HKB924] Order #: [id number] CAST DAVID LEG, SHORT(WALKING) [[id number]] Order #: [id number] [] BUPivacaine (PF) 0.5 % (5 mg/mL) 1 mL injectionDisp: Rfl: [] triamcinolone acetonide (more content not included)... Normal [facility] CNCOon 03-28-2025 [address]CO [address] [facility] CNOVon 03-14-2025 CNOV Office Visit (LOORRM ) ----- NOEL PAUL ([id number]) 1990 F [facility] Date Time Provider Department 03/14/25 3:45 PM SEAN MATAORRMadi During your visit today, we recorded the following information about you: Sean Mata DPM 03/14/2025 4:01 PM Signed PRIMARY SERVICE: [facility] SUBJECTIVE: Patient is seen today for [...] for up to 10 days. 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 DEXCOM G7 SENSOR eduin [...] [Z98.890] Order(s):XR FOOT GENERAL 3V AP/LAT/OBL RIGHT [[id number]] Order #: [id number] FUTURE XR FOOT GENERAL 3V AP/LAT/OBL RIGHT [[id number]] Order #: [id number] FUTURE Prescriptions as of 03/14/2025 - keTORolac (TORADOL) 10 mg tablet Take 1 tablet by mouth every 6 hours as needed. with food. - aspirin 325 mg tablet Take 1 tablet by mouth once daily. - DEXCOM G7 SHEET ROCK APPLIER misc as directed. - DEXCOM G7 SENSOR [...] BMI 6 (more content not included)... Normal [facility] XR FOOT 3V AP/LAT/OBL RTon 0 03-14-2025 [...] interval change. IMPRESSION: No significant interval change. Fence Making Machine Operator: [employer] Transcribe Date/Time: Mar 14 2025 4:01P Dictated by : NEO PERLA MD This examination was interpreted and the report reviewed and electronically signed by: NEO PERLA MD on Mar 14 2025 4:02PM EST [id number] Normal [facility] XR Foot - right AP and Later al and obliqueon 03-14-2025 IMPRESSION: No significant interval change. Fence Making Machine Operator: [employer] Transcribe Date/Time: Mar 14 2025 4:01P Dictated by : NEO PERLA MD This examination was interpreted and the report reviewed and electronically signed by: NEO PERLA MD on Mar 14 2025 4:02PM EST DIVISION OF RADIOLOGY * * *Final [...] significant interval change. DIVISION OF RADIOLOGY Provider, Iris Bateman [facility] - 03/14/2025 * * *Final Report* * [...] change. IMPRESSION IMPRESSION: No significant interval change. Fence Making Machine Operator: HERNÁN Transcribe Date/Time: Mar 14 2025 4:01P Dictated by : NEO PERLA MD This examination was interpreted and the report reviewed and electronically signed by: NEO PERLA MD on Mar 14 2025 4:02PM EST [facility] Radiology Study observation (narrative) [facility] XR Foot - right AP and Later al and obliqueOrdered By: [facility] Telephone (ORQ) ----- NOEL PAUL ([id number]) 1990 F [facility] Date Time Provider Department 02/20/25 SEAN MATA ORQ During your visit today, we recorded the following information about you: Marva Bhardwaj 02/20/2025 4:08 PM Signed Bonilla from [facility] PT Dept is calling Sean Mata DPM today to request weightbearing guide lines for patient PT CB [phone] ext [phone] FAX [phone] Patient has been identified by name and birthdate. Duration of symptoms: N/A Person calling: caregiver: Call patient at: [phone] (home) [phone] (cell) Was an appointment scheduled: No Closing statement: Results or non-symptom based questions: Thank you for calling [facility], your call will be returned within [...] by mouth once daily. - DEXCOM G7 SHEET ROCK APPLIER misc as directed. - DEXCOM G7 SENSOR [...] Encounter Status:Closed by CHRIS BHATT on 02/20/25 [facility] Pop 02-13-2025 CNOV Office Visit (LOORRM ) ----- NOEL PAUL ([id number]) 1990 F [facility] Date Time Provider Department 02/13/25 9:45 AM SEAN MATA During your visit today, we recorded the following information about you: Sean Mata, SHITAL 02/13/2025 10:05 AM Signed PRIMARY SERVICE: [facility] SUBJECTIVE: Patient is seen today for [...] up to 10 days. - DEXCOM G7 SHEET ROCK APPLIER misc as directed. - DEXCOM G7 SENSOR [...] [Z98.890] Order(s):XR FOOT GENERAL 3V AP/LAT/OBL RIGHT [[id number]] Order #: [id number] FUTURE CONSULT TO PHYSICAL THERAPY [9032] Order #: [id number]: 1 FUTURE Prescriptions as of 02/13/2025 - keTORolac (TORADOL) 10 mg tablet Take 1 tablet by mouth every 6 hours as needed. with food. - aspirin 325 mg tablet Take 1 tablet by mouth once daily. - DEXCOM G7 SHEET ROCK APPLIER misc as directed. - DEXCOM G7 SENSOR [...] Date 02/13 (more content not included)... Normal [facility] CNOV Office Visit (LOORRM ) ----- NOEL PAUL ([id number]) 1990 F [facility] Date Time Provider Department 02/13/25 9:30 AM CAST TECH JOI BLANKENSHIP During your [...] by mouth once daily. - DEXCOM G7 SHEET ROCK APPLIER misc as directed. - DEXCOM G7 SENSOR [...] Status:Closed by BEVERLY DOBSON on 02/13/[address] [facility] XR FOOT 3V AP/LAT/OBL RTon 0 02-13-2025 [...] interval change. IMPRESSION: Postoperative findings, as described. Fence Making Machine Operator: PSCB Transcribe Date/Time: Feb 13 2025 9:26A Dictated by : MONALISA HOLGUIN MD This examination was interpreted and the report reviewed and electronically signed by: ANGELA VEGAS MD on Feb 13 2025 10:19AM EST [id number] Normal [facility] XR Foot - right AP and Later al and obliqueon 02-13-2025 IMPRESSION: Postoperative findings, as described. Fence Making Machine Operator: HERNÁN Transcribe Date/Time: Feb 13 2025 9:26A Dictated by : MONALISA HOLGUIN MD This examination was interpreted and the report reviewed and electronically signed by: ANGELA VEGAS MD on Feb 13 2025 10:19AM [facility] DIVISION OF RADIOLOGY * * *Final [...] significant interval change. DIVISION OF RADIOLOGY Provider, [facility] - 02/13/2025 * * *Final Report* [...] change. IMPRESSION IMPRESSION: Postoperative findings, as described. Fence Making Machine Operator: HERNÁN Transcribe Date/Time: Feb 13 2025 9:26A Dictated by : MONALISA HOLGUIN MD This examination was interpreted and the report reviewed and electronically signed by: ANGELA VEGAS MD on Feb 13 2025 10:19AM EST [facility] Radiology Study observation (narrative) [facility] XR Foot - right AP and Later al and obliqueOrdered By: [facility] Provider on 02-13-2025 [facility] CNOVon 01-23-2025 CNOV Office Visit (LOORRM ) ----- NOEL PAUL ([id number]) 1990 F [facility] Date Time Provider Department [...] Will f/u as scheduled/prn. Beverly Dobson CT Referring Provider: SELF [200] Allergies As of [...] by mouth once daily. - DEXCOM G7 SHEET ROCK APPLIER misc as directed. - DEXCOM G7 SENSOR [...] Encounter Status:Closed by BEVERLY DOBSON on 01/23/25 [facility] CN Office Visit (LOORRM ) ----- NOEL PAUL ([id number]) 1990 F [facility] Date Time Provider Department 01/23/25 11:30 AM SEAN MATA During your visit today, we recorded the following information about you: Sean Mata DPM 01/23/2025 11:47 AM Signed PRIMARY SERVICE: [facility] SUBJECTIVE: Patient is seen today for [...] for up to 10 days. 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 DEXCOM G7 SENSOR eduin [...] [Q74.2] Order(s):XR FOOT GENERAL 3V AP/LAT/OBL RIGHT [[id number]] Order #: [id number] FUTURE PARKING FOR HANDICAPPED [[id number]] Order #: [id number] Prescriptions as of 01/23/2025 - keTORolac (TORADOL) 10 mg tablet Take 1 tablet by mouth every 6 hours as needed. with food. - aspirin 325 mg tablet Take 1 tablet by mouth once daily. - DEXCOM G7 SHEET ROCK APPLIER misc as directed. - DEXCOM G7 SENSOR [...] - oxyCOD (more content not included)... Normal [facility] CNCOon 01-09-2025 [address]CO [address] [facility] CNOVon 01-09-2025 CNOV Office Visit (LOORRM ) ----- SUZINOEL ORTIZ ([id number]) 1990 F [facility] Date Time Provider Department 01/09/25 10:15 AM SEAN MATA LOORRMadi During your visit today, we recorded the following information about you: Sean Mata, DPMadi 01/09/2025 10:55 AM Signed PRIMARY SERVICE: [facility] SUBJECTIVE: Patient is seen today for [...] for up to 10 days. 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 DEXCOM G7 SENSOR eduin [...] [Q74.2] Order(s):XR FOOT GENERAL 3V AP/LAT/OBL RIGHT [[id number]] Order #: [id number] FUTURE Prescriptions as of 01/09/2025 - keTORolac (TORADOL) 10 mg tablet Take 1 tablet by mouth every 6 hours as needed. with food. - aspirin 325 mg tablet Take 1 tablet by mouth once daily. - promethazine (PHENERGAN) 12.5 mg tablet Take 1 tablet by mouth every 8 hours as needed for up to 10 days. - DEXCOM G7 SHEET ROCK APPLIER misc as directed. - DEXCOM G7 SENSOR [...] Noted R (more content not included)... Normal [facility] Office Visit (LOORRM ) ----- NOEL PAUL ([id number]) 1990 F [facility] Date Time Provider Department 01/09/25 9:30 AM CAST TECH JOI GALLAGHERMadi During your visit today, we recorded the [...] up to 10 days. - DEXCOM G7 SHEET ROCK APPLIER misc as directed. - DEXCOM G7 SENSOR [...] Encounter Status:Closed by SHAYLEE CONCEPCION on 01/09/25 [facility] Vaibhav 01-02-2025 [place] Telephone (LOORR) ----- SUZINOEL ORTIZ ([id number]) 1990 F [facility] Date Time Provider Department 01/02/25 SEAN MATA LOORRMadi During your visit today, we recorded the following information about you: Sean Mata DPM 01/02/2025 12:40 PM Signed Called patient at [phone] to return call regarding pain management. I [...] up to 5 days. - DEXCOM G7 SHEET ROCK APPLIER misc as directed. - DEXCOM G7 SENSOR [...] Encounter Status:Closed by SEAN MATA on 01/02/25 [facility] ANES POSTPROC EVALon 025 ANES POSTPROC EVAL HNO ID: [id number] Author: PETER BROWN MD Service: Anesthesiology Author Type: Anesthesiologist Type: Anesthesia Postprocedure Evaluation Filed: 12/31/2024 11:19 Note Text: POST ANESTHESIA EVALUATION NOTE : 1990 Procedure Summary Date: 12/31/24 Room / Location: [address] Anesthesia Start: 0738 Anesthesia Stop: 1006 Procedure: [...] December 31, 2024 TIME: 11:19 AM CSN: [id number] [facility] ANES PRE-OPon 12-31-2024 ANES PRE-OP HNO ID: [id number] Author: PETER BROWN MD Service: Anesthesiology Author Type: Anesthesiologist Type: Anesthesia Preprocedure Evaluation Filed: 12/31/2024 07:32 Note Text: ANESTHESIOLOGY DAY OF SURGERY NOTE : 1990 Procedure Information Date/Time: 12/31/2430 Procedure: RECONSTRUCTION POSTERIOR TIBIAL TENDON W/EXCISION OF ACCESSORY TARSAL NAVICULAR BONE (Right: Foot) Location: [place] [address] / [facility] Surgeons: Sean Mata, SHITAL Estimated body mass index is 62.06 kg/m? [...] none. Vitals Value Taken Time BP 143/89 12/31/24706 Pulse 18 12/31/24706 Resp 16 12/31/24706 Temp 36.3 ?C (97.4 ?F) 12/31/24706 SpO2 97 % 12/31/24706 Facility-Administered Medications as of 12/31/2024 Medication Dose [...] of 12/31/2024 Medication Sig - DEXCOM G7 SHEET ROCK APPLIER misc as directed. - DEXCOM G7 SENSOR [...] December 31, 2024 TIME: 7:31 AM CSN: [id number] [facility] BRIEF OP NOTon 12-31-2024 BRIEF OP NOT HNO ID: [id number] Author: SEAN MATA DPM Service: Podiatry Author Type: Physician Type: Brief Op Note Filed: 12/31/2024 09:42 Note Text: BRIEF OPERATIVE / PROCEDURE NOTE LOG ID: [id number] SURGERY/PROCEDURE DATE: 12/31/2024 INCISION/PROCEDURE START TIME: 8:16 AM INCISION CLOSE/PROCEDURE END TIME: SURGEON(S)/PROCEDURALIST( S) AND CLOTH DYE RANGE OPERATOR(S): Surgeons and Role: * Sean Mata DPM - Primary * Joana, SHITAL Richards - Resident - Assisting No Additional Staff [...] December 31, 2024 TIME: 9:[address] [facility] Vaibhav 12-31-2024 CNPN Telephone (ORQ) ----- SUZINOEL ORTIZ ([id number]) 1990 F [facility] Date Time Provider Department [...] calling: self Call patient at: at home [phone] (home) [phone] (cell) Was an appointment scheduled: No Closing statement: Results or non-symptom based questions: Thank you for calling [facility], your call will be returned within the next business day. Karissa Torrez MA 12/31/2024 3:26 PM Signed Message has been sent directly to Dr Mata's phone. Sean Mata DPM 01/01/2025 3:53 PM Signed Called patient at her Lonnie's cell number at [phone] to check on postop progress. Received voicemail. [...] up to 5 days. - DEXCOM G7 SHEET ROCK APPLIER misc as directed. - DEXCOM G7 SENSOR [...] Encounter Status:Closed by SEAN MATA on 01/01/25 [facility] OPERATIVE NOon 12-31-2024 OPERATIVE NO HNO ID: [id number] Author: SEAN MATA DPM Service: Podiatry Author Type: Physician Type: Operative Report Filed: 01/24/2025 08:37 Note Text: [facility] - Operative Report [address] [address] [place] NOEL PAUL : 1990 AGE: 34. SEX: F PATIENT TYPE: OP HOSP SVC: ORTS LOCATION: [id number] ATTENDING PHYSICIAN: Sean Mata DPM CSN NUMBER: [id number] DATE OF SURGERY/PROCEDURE: 12/31/2024 INCISION/PROCEDURE START TIME: 8:16 a.m. INCISION CLOSE/PROCEDURE END TIME: 9:43 a.m. The procedure was performed in conjunction with the resident who was present in the operating room today under my direct supervision from skin to skin. PREOPERATIVE DIAGNOSIS: Painful remaining accessory navicular, right foot. POSTOPERATIVE DIAGNOSIS: Painful remaining accessory navicular, right foot. SURGEON: Sean Mata DPM CLOTH DYE RANGE OPERATOR: Maurice Bernard D.P.M. SURGERY/PROCEDURE: Revisional modified Kidner procedure, right foot, CPT 14680. ANESTHESIA: General with a local field block consisting of 20 mL of 2% lidocaine plain. LOCATION: [facility]. HEMOSTASIS: Right pneumatic thigh tourniquet at [...] with a SutureTak, we then used some cppe-dxy-ksyd sutures distally to the distal (more content not included)... Normal [facility] Pathology biopsy report Joseph (Tiss)on 12-31-[address] [facility] Comment on above: Order Comment: Anil marx Type: TISSUE SPECIMENOrdering Facility: [facility] Address: [address] [place] [address] Result Comment: Surg [facility] Pathology Report Case: [id number] Authorizing Provider: Sean Mata, Collected: 12/31/2024 09:51 AM DPM Ordering Location: Ambulatory Surgery Received: 12/31/2024 01:28 PM Pathologist: Shemar Pablo MD Specimen: Bone and Soft Tissue, right foot Performed By: #### 6 6121-5 ####[facility] [id number] [address] [id number] [address] [place] CLINICAL HISTORY Normal [facility] Comment on above: Order Comment: Anil marx Type: TISSUE SPECIMENOrdering Facility: [facility] Address: [address] [place] [address] Result Comment: Pre- op diagnosis: 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 Comment on above: Order Comment: Anil marx Type: TISSUE SPECIMENOrdering Facility: [facility] Address: [address] [place] [address] Result Comment: A. B one, right foot, excision: - Osteocartilaginous tissue with degenerative changes and granulation tissue. Performed By: #### 6 6121-5 ####[facility] LABORATORYCLIA [id number] [place] [address] [facility] LABCL[facility] [id number] [address] [place] FINAL PERFORMING LAB Normal [facility] Comment on above: Order Comment: Speci men Type: TISSUE SPECIMENOrdering Facility: [facility] Address: [address] [place] [address] Result Comment: Diag nostic interpretation performed at: [facility], [address] [facility] [address] CLIA# [id number] Pet Stylist: Fermín Ojeda MD Performed By: #### 6 6121-5 ####[facility] [id number] [place] [address] [facility] LABCLIA [id number] [address] [place] GROSS DESCRIPTION Normal [facility] Comment on above: Order Comment: Speci men Type: TISSUE SPECIMENOrdering Facility: [facility] Address: [address] [place] [address] Result Comment: A. B one and Soft Tissue Received in formalin, labeled right foot are multiple irregular fragments of mccarthy, hard bone measuring 3 x 3 x 0.9 cm in aggregate. Sectioning reveals mccarthy, hard bone. No gross necrotic areas identified. Trust Mail Clerk sections are submitted in A1 following formic decalcification. KSZ January 01, 2025 10:57 AM Gross examination performed at [facility], [address] [place] [address] Performed By: #### 6 6121-5 ####[facility] [id number] [place] [address] [facility] LABCLIA [id number] [place] [address] [place] HISTORY PHYSICALon HISTORY PHYSICAL HNO ID: [id number] Author: ARY ROCHA APRN.IRENE Service: ? Author [...] STOP-Bang Score: STOP-Bang Score: 0 (Awaiting CPAP) [id number] Score: Age: <65 Sex: female [id number] Score: ARISCAT Score: Age: <=50 Preoperative SpO2: [...] chart review and guidance on proceeding at [place]. Per Dr Goetz, patient may proceed as scheduled at [place] CONSULTS: Anesthesia Consult chart review The Following [...] 1 t (more content not included)... Normal [facility] CNOVon 12-12-2024 CNOV Office Visit (LOORRM ) ----- NOEL PAUL ([id number]) 1990 F [place] Date Time Provider Department 12/12/24 10:00 AM SEAN MATA During your visit today, we recorded the following information about you: Sean Mata DPM 12/12/2024 10:46 AM Signed [facility] Department of Orthopedics [facility] Orthopedic Surgery Name: Noel Paul Date of [...] Current Outpatient Medications Medication Sig DEXCOM G7 SHEET ROCK APPLIER misc as directed. DEXCOM G7 SENSOR eduin [...] Prescriptions as of 12/12/2024 - DEXCOM G7 SHEET ROCK APPLIER misc as directed. - DEXCOM G7 SENSOR [...] 1 CA (more content not included)... Normal 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 - DEXCOM G7 SENSOR [...] Encounter Status:Closed by CATHY SANTANA on 12/12/24 [facility] XR FOOT 3V AP/LAT/OBL RTon 0 [...] unremarkable. IMPRESSION: No fracture or joint dislocation. Fence Making Machine Operator: [facility] Transcribe Date/Time: Dec 12 2024 9:37A Dictated by : LUX WILLETT MD This examination was interpreted and the report reviewed and electronically signed by: LUC AVILES MD on Dec 12 2024 11:47AM EST [id number] Normal [facility] XR Foot - right AP and Later al and obliqueon 12-12-2024 IMPRESSION: No fracture or joint dislocation. Fence Making Machine Operator: [facility]ENTER[facility] Transcribe Date/Time: Dec 12 2024 9:37A Dictated [...] tissues appear unremarkable. DIVISION OF RADIOLOGY Provider, [facility] - 12/12/2024 * * *Final Report* [...] IMPRESSION IMPRESSION: No fracture or joint dislocation. Fence Making Machine Operator: PSCB Transcribe Date/Time: Dec 12 2024 9:37A Dictated by : LUX WILLETT MD This examination was interpreted and the report reviewed and electronically signed by: LUC AVILES MD on Dec 12 2024 11:47AM EST [facility] Radiology Study observation (narrative) [facility] XR Foot - right AP and Later al and obliqueOrdered By: Ccf Provider on 12-12-2024 [facility] 36on 12-04-2024 36 Spoke with patient a nd let her know that per Dr. Her she can bring the disc in and he will take a look at the images and let her know. [facility] 36on 12-03-2024 36 Patient would like t o know if she can get in earlier than her rescheduled appt since she had to cancel. Patient would like to drop off her MRI results sooner than her appt as well. Please advise at [phone] [facility] Telephoneon 12-03-2024 Telephone [phone] Neol Paul 1990 F Date Provider Department Center 12/03/2024 [id number] WEIR MP ORTHO MPORTHO No family history on file Reason for Visit and Comments: Appointment [375] [facility] 36on 11-29-2024 36 LVM with patient yoni t she will need to bring disc in. Scheduled patient for Tuesday12/03/24 at 10:30 am [facility] 36 Patient would like t o know if she needs to make an appointment to bring in her MRI results or if you have received them? [employer] does not see them in the chart. Please advise at [phone] [facility] Office Visiton 11-26-2024 Follow-up visit [id number] Noel Paul 1990 F Date Provider Department Center 11/26/2024 [id number]-AQUILES HERSHREYA SOPHIA ORTHO MPORTHO No family history on file Level of Service:64692 [place] OFFICE/OUTPATIENT NEW LOW MDM 30 MINUTES (GC) Reason for Visit and Comments: Pain [136] Normal [facility] 36on 11-23-2024 36 LVM to confirm appt Normal [facility] Surgical Pathology Reporton 09-12-2024 Surgical Pathology Report [facility] [address] [place] [address]- Surgical Pathology Report Collected Date/Time: 09/05/2024 08:32 [...] clinical information only. Normal [facility] Comment on above: Performed By: #### 4 [id number] #### [facility] [address] [place] [address] Surgical Pathology Reporton 09-11-2024 Surgical Pathology Report [facility] [address] [place] [address]- Surgical Pathology Report Collected Date/Time: 09/05/2024 08:32 [...] gross only specified. Normal [facility] Comment on above: Performed By: #### 4 [id number] #### [facility] [address] [place] [address] Calcium [Mass/volume] in Ser um or PlasmaOrdered By: Sean Ruano on 05-16-2024 Calcium [Mass/Vol] 8.8 mg/dL 8.6-10.3 [facility] Carbon dioxide, total [Moles /volume] in Serum or PlasmaOrdered By: Sean Ruano on 05-16-2024 CO2 [Moles/Vol] 27.3 mmol/L 21.0-31.0 [facility] Chloride [Moles/volume] in S nikkie or PlasmaOrdered By: Sean Ruano on 05-16-2024 Chloride [Moles/Vol] 105 mmol/L 98-107 [facility] Creatinine [Mass/volume] in Serum or PlasmaOrdered By: Sean Ruano on 05-16-2024 Creatinine [Mass/Vol] 0.66 mg/dL 0.60-1.20 [facility] Glucose Glucometer (BldC) [M ass/Vol]Ordered By: Pato Avelar on 05-16-2024 Glucose [Mass/Vol] 106 mg/dL [facility] Comment on above: Random Glucose Refer ence Range is dependent on time and content of last meal. Glucose of more than 200 mg/dL in a nonstressed, ambulatory subject supports the diagnosis of Diabetes Mellitus. Glucose [Mass/volume] in Ser um or PlasmaOrdered By: Sean Ruano on 05-16-2024 Glucose [Mass/Vol] 107 mg/dL 70-100 [facility] Comment on above: ADA recommended refe rence rangeRandom Glucose Reference Range is dependent on time and content of last meal. Glucose of more than 200 mg/dL in a nonstressed, ambulatory subject supports the diagnosis of Diabetes Mellitus. HCG ( test) IA.rapi d Ql (U)Ordered By: Sean Ruano on 05-16-2024 HCG ( test) Ql (U) Negative [facility] No Panel InformationOrdered By: Pato Avelar on 05-16-2024 Bedside Glucose Comment Glu2: cleaned meter [facility] No Panel InformationOrdered By: Sean Ruano on 05-16-2024 Estimated GFR (CKD-EPI) > 60.0 mL/Min [facility] Creatinine Clearance (Chem 161.75 [facility] Potassium [Moles/volume] in Serum or PlasmaOrdered By: Sean Ruano on 05-16-2024 Potassium [Moles/Vol] 3.8 mmol/L 3.5-5.1 [facility] Serum or plasma anion gap de terminationOrdered By: Sean Ruano on 05-16-2024 Anion gap [Moles/Vol] 9.5 mmol/L 6.0-15.0 [facility] Sodium [Moles/volume] in Ser um or PlasmaOrdered By: Sean Ruano on 05-16-2024 Sodium [Moles/Vol] 138 mmol/L 136-145 [facility] Urea nitrogen [Mass/volume] in Serum or PlasmaOrdered By: Sean Ruano on 05-16-2024 Urea nitrogen [Mass/Vol] 17 mg/dL 7-25 [facility] CBC w/ Auto Diffon 4 Basophils/100 WBC (Bld) 0.5 % Normal 0.0-2.0 [facility] Comment on above: Performed By: #### 2 [id number] #### [facility] [address] [place] [address] Basophils/Leukocytes Auto (Bld) [Pure # fraction] 0.1 E9/L Normal 0.0-0.2 [facility] Comment on above: Performed By: #### 2 [id number] #### [facility] [address] [place] [address] Eosinophils (Bld) [#/Vol] 0.3 E9/L Normal 0.0-0.5 [facility] Comment on above: Performed By: #### 2 [id number] #### [facility] [address] [place] [address] Eosinophils/100 WBC (Bld) 2.9 % Normal 0.0-8.0 [facility] Comment on above: Performed By: #### 2 [id number] #### [facility] [address] [place] [address] Erythrocyte distribution width (RBC) [Ratio] 15.6 % High 10.9-14.2 [facility] Comment on above: Performed By: #### 2 [id number] #### [facility] [address] [place] [address] Hematocrit (Bld) [Volume fraction] 39.9 % Normal 34.0-46.0 [facility] Comment on above: Performed By: #### 2 [id number] #### [facility] [address] [place] [address] Hemoglobin (Bld) [Mass/Vol] 12.8 g/dL Normal 12.0-16.0 [facility] Comment on above: Performed By: #### 2 [id number] #### [facility] [address] [place] [address] Lymphocytes (Bld) [#/Vol] 2.3 E9/L Normal 1.0-4.0 [facility] Comment on above: Performed By: #### 2 [id number] #### [facility] [address] [place] [address] Lymphocytes/100 WBC (Bld) 20.9 % Normal 14.0-50.0 [facility] Comment on above: Performed By: #### 2 [id number] #### [facility] [address] [place] [address] MCH (RBC) [Entitic mass] 25.4 pg Low 27.0-34.0 [facility] Comment on above: Performed By: #### 2 [id number] #### [facility] [address] [place] [address] MCHC (RBC) [Mass/Vol] 32.2 g/dL Normal 31.4-36.0 [facility] Comment on above: Performed By: #### 2 [id number] #### [facility] [address] [place] [address] MCV (RBC) [Entitic vol] 79.0 fL Low 80.0-100.0 [facility] Comment on above: Performed By: #### 2 [id number] #### [facility] [address] [place] [address] Monocytes (Bld) [#/Vol] 0.7 E9/L Normal 0.2-1.0 [facility] Comment on above: Performed By: #### 2 [id number] #### [facility] [address] [place] [address] Neutrophils (Bld) [#/Vol] 7.7 E9/L High 2.0-7.5 [facility] Comment on above: Performed By: #### 2 [id number] #### [facility] [address] [place] [address] Neutrophils/100 WBC (Bld) 69.3 % Normal 36.0-75.0 [facility] Comment on above: Performed By: #### 2 [id number] #### [facility] [address] [place] [address] Platelet mean volume (Bld) [Entitic vol] 8.3 fL Normal 6.4-10.8 [facility] Comment on above: Performed By: #### 2 [id number] #### [facility] [address] [place] [address] Platelets (Bld) [#/Vol] 346.0 E9/L Normal 150.0-500. 0 [facility] Comment on above: Performed By: #### 2 [id number] #### [facility] [address] [place] [address] RBC (Bld) [#/Vol] 5.1 E12/L Normal 4.3-5.9 [facility] Comment on above: Performed By: #### 2 [id number] #### [facility] [address] [place] [address] WBC corrected for nucl RBC Auto (Bld) [#/Vol] 11.1 E9/L High 4.0-11.0 [facility] Comment on above: Performed By: #### 2 [id number] #### [facility] [address] [place] [address] Consent for Treatmenton 03-29 Consent for Treatment [id number] Normal [facility] HEMATOLOGYOrdered By: SYSTEM SYSTEM on 04-25-2024 [...] Remisol Heme Physician Orderon 04-18-2024 Physician Order [id number] Normal [facility] GLYCOHEMOGLOBIN A1Con 2022 ADA RECOMMENDATION SEE BELOW Normal [facility] Comment on above: Result Comment: ADA RECOMMENDED LIMIT 4.0 - 6.0 ADA THERAPEUTIC TARGET < 7.0 ACTION SUGGESTED > 7.0 Performed By: #### A 1C #### [facility] [address] [place] [address] Dr. Benito Dupree Glucose [Mass/Vol] 105 mg/dL Normal [facility] Comment on above: Performed By: #### A 1C #### [facility] [address] [place] [address] Dr. Benito Dupree HbA1c (Bld) [Mass fraction] 5.3 % Normal 4.5-6.2 [facility] Comment on above: Performed By: #### A 1C #### [facility] [address] [place] [address] Dr. Benito Dupree Covid-19 PCR ([facility])on SARS-CoV-2 (COVID-19) RNA MUKUND+probe Ql (Unsp spec) Not detected Normal NOT DETECTED [facility] Comment on above: Result Comment: This test is not yet approved or cleared by the [place] FDA. When there are no FDA-approved or cleared tests available, and other criteria are met, FDA can make tests available under an emergency access mechanism called an Emergency Use Authorization (EUA). The EUA for this test is supported by the [employer] Contract of Health and Human Service's (HHS's) declaration [...] SARS-CoV-2. Performed By: #### C VDTBH #### [facility] [address] [place] [address] Dr. Benito Dupree INFLUENZA A AND B AGon 01-05 INFLUANEGH SEE BELOW Normal [facility] Comment on above: Result Comment: Nega tive for Flu A protein angiten. Infection due to Flu A cannot be ruled out. Flu A angiten in the sample may be below the detection limit of the test. Performed By: #### I NFLUAB #### [facility] [address] [place] [address] Dr. Benito Dupree INFLUBNEGH SEE BELOW Normal [facility] Comment on above: Result Comment: Nega tive for Flu B protein antigen. Infection due to Flu B cannot be ruled out. Flu B antigen in the sample may be below the detection limit of the test. Performed By: #### I NFLUAB #### [facility] [address] [place] [address] Dr. Benito Dupree INFLUENZA A AG Negative Normal NEGATIVE SEE COMMENT [facility] Comment on above: Performed By: #### I NFLUAB #### [facility] [address] [place] [address] Dr. Benito Dupree INFLUENZA B AG Negative Normal NEGATIVE SEE COMMENT [facility] Comment on above: Performed By: #### I NFLUAB #### [facility] [address] [place] [address] Dr. Benito Dupree GLYCOHEMOGLOBIN A1Con 2021 ADA RECOMMENDATION SEE BELOW Normal [facility] Comment on above: Result Comment: ADA RECOMMENDED LIMIT 4.0 - 6.0 ADA THERAPEUTIC TARGET < 7.0 ACTION SUGGESTED > 7.0 Performed By: #### A 1C #### [facility] [address] [place] [address] Dr. Benito Dupree Glucose [Mass/Vol] 143 mg/dL Normal [facility] Comment on above: Performed By: #### A 1C #### [facility] [address] [place] [address] Dr. Benito Dupree HbA1c (Bld) [Mass fraction] 6.6 % Critically high 4.5-6.2 [facility] Comment on above: Performed By: #### A 1C #### [facility] [address] [place] [address] Dr. Benito Dupree LIPID PROFILEon 11-15-2022 CHOL-HDL RATIO NORM SEE BELOW Normal [facility] Comment on above: Result Comment: 3.3 - 4.4 LOW RISK 4.4 - 7.1 AVERAGE RISK 7.1 - 11.0 MODERATE RISK >11.0 HIGH RISK Performed By: #### I NFLUAB #### [facility] [address] [address] [address] Benito Dupree Cholesterol [Mass/Vol] 154 mg/dL Normal <=200 [facility] Comment on above: Performed By: #### I NFLUAB #### [facility] [address] [address] [address] Benito Dupree Cholesterol in HDL [Mass/Vol] 29 mg/dL Critically low 40-60 [facility] Comment on above: Performed By: #### I NFLUAB #### [facility] [address] [address] [address] Benito Dupree Cholesterol in LDL [Mass/Vol] 98.2 mg/dL Normal [facility] Comment on above: Performed By: #### I NFLUAB #### [facility] [address] [address] [address] Benito Dupree Cholesterol.total/Chol esterol in HDL [Mass ratio] 5.3 {ratio} Normal [facility] Comment on above: Performed By: #### I NFLUAB #### [facility] [address] [address] [address] Benito Dupree HDL NORMAL > or = 60 mg/dl - LO W CARDIOVASCULAR RISK <40 mg/dl - HIGH CARDIOVASCULAR RISK Normal [facility] Comment on above: Performed By: #### I NFLUAB #### [facility] [address] [address] [address] Benito Dupree LDL CALC NORMAL SEE BELOW Normal [facility] Comment on above: Result Comment: <100 mg/dl OPTIMAL 100 - 129 mg/dl NEAR OR ABOVE OPTIMAL 130 - 159 mg/dl BORDERLINE HIGH 160 - 189 mg/dl HIGH >190 mg/dl VERY HIGH Performed By: #### I NFLUAB #### [facility] [address] [address] [address] Benito Dupree Triglyceride [Mass/Vol] 134 mg/dL Normal <=150 [facility] Comment on above: Performed By: #### I NFLUAB #### [facility] [address] [place] [address] Dr. Benito Dupree VLDL CALC 26.8 mg/dL Normal [facility] Comment on above: Performed By: #### I NFLUAB #### [facility] [address] [place] [address] Dr. Benito Dupree INSULINon 08-19-2022 Insulin 24.3 uIU/mL Normal 2.6-24.9 [facility] Comment on above: Performed By: #### I NFLUAB #### [facility] [address] [place] [address] Dr. Benito Dupree T4, T3U, FTI LABCORPon 08-19 Free Thyroxine Index 2.6 Normal 1.2-4.9 [facility] Comment on above: Performed By: #### T HYLC #### [facility] [address] [place] [address] Dr. Benito Dupree T3 Uptake 29 % Normal 24-39 [facility] Comment on above: Performed By: #### T HYLC #### [facility] [address] [place] [address] Dr. Benito Dupree T4 [Mass/Vol] 8.8 ug/dL Normal 4.5-12.0 [facility] Comment on above: Performed By: #### T HYLC #### [facility] [address] [place] [address] Dr. Benito Dupree CBC AUTO DIFFon 08-18-2022 BASO # 0.1 103/ul Normal 0.0-0.1 [facility] Comment on above: Performed By: #### I NFLUAB #### [facility] [address] [place] [address] Dr. Benito Dupree Basophils/100 WBC (Bld) 0.8 % Normal 0.2-2.0 [facility] Comment on above: Performed By: #### I NFLUAB #### [facility] [address] [place] [address] Dr. Benito Dupree EO # 0.3 103/ul Normal 0.0-0.7 [facility] Comment on above: Performed By: #### I NFLUAB #### [facility] [address] [place] [address] Dr. Benito Dupree Eosinophils/100 WBC (Bld) 2.8 % Normal 0.9-7.0 [facility] Comment on above: Performed By: #### I NFLUAB #### [facility] [address] [place] [address] Dr. Benito Dupree Erythrocyte distribution width (RBC) [Ratio] 15.4 % Critically high 11.0-15.0 [facility] Comment on above: Performed By: #### I NFLUAB #### [facility] [address] [place] [address] Dr. Benito Dupree Hematocrit (Bld) [Volume fraction] 43.7 % Normal 36.0-48.0 [facility] Comment on above: Performed By: #### I NFLUAB #### [facility] [address] [place] [address] Dr. Benito Dupree Hemoglobin (Bld) [Mass/Vol] 14.2 g/dL Normal 12.0-16.0 [facility] Comment on above: Performed By: #### I NFLUAB #### [facility] [address] [place] [address] Dr. Benito Dupree IG # 0.08 10e3/ul Critically high 0.00-0.03 [facility] Comment on above: Performed By: #### I NFLUAB #### [facility] [address] [place] [address] Dr. Benito Dupree IG % 0.9 % Critically high 0.0-0.5 [facility] Comment on above: Performed By: #### I NFLUAB #### [facility] [address] [place] [address] Dr. Benito Dupree LYMPH # 2.3 103/ul Normal 1.2-3.8 [facility] Comment on above: Performed By: #### I NFLUAB #### [facility] [address] [place] [address] Dr. Benito Dupree Lymphocytes/100 WBC (Bld) 24.3 % Normal 20.5-60.0 [facility] Comment on above: Performed By: #### I NFLUAB #### [facility] [address] [place] [address] Dr. Benito Dupree MANUAL DIFF REQ NO Normal [facility] Comment on above: Performed By: #### I NFLUAB #### [facility] [address] [place] [address] Dr. Benito Dupree MCH (RBC) [Entitic mass] 26.1 pg Critically low 26.7-34.0 [facility] Comment on above: Performed By: #### I NFLUAB #### [facility] [address] [place] [address] Dr. Benito Dupree MCHC (RBC) [Mass/Vol] 32.5 g/dL Normal 29.9-35.2 [facility] Comment on above: Performed By: #### I NFLUAB #### [facility] [address] [place] [address] Dr. Benito Dupree MCV (RBC) [Entitic vol] 80.2 fL Critically low 81.0-99.0 [facility] Comment on above: Performed By: #### I NFLUAB #### [facility] [address] [place] [address] Dr. Benito Dupree MONO # 0.5 103/ul Normal 0.3-0.8 [facility] Comment on above: Performed By: #### I NFLUAB #### [facility] [address] [place] [address] Dr. Benito Dupree Monocytes/100 WBC (Bld) 5.2 % Normal 1.7-12.0 [facility] Comment on above: Performed By: #### I NFLUAB #### [facility] [address] [place] [address] Dr. Benito Dupree NEUT # 6.1 103/ul Normal 1.4-6.5 [facility] Comment on above: Performed By: #### I NFLUAB #### [facility] [address] [address] [address] Benito Dupree Neutrophils/100 WBC (Bld) 66.0 % Normal 43.0-75.0 [facility] Comment on above: Performed By: #### I NFLUAB #### [facility] [address] [address] [address] Benito Dupree Platelet mean volume (Bld) [Entitic vol] 9.9 fL Normal 9.5-13.5 [facility] Comment on above: Performed By: #### I NFLUAB #### [facility] [address] [address] [address] Benito Dupree PLT 291 103/ul Normal 150-450 [facility] Comment on above: Performed By: #### I NFLUAB #### [facility] [address] [address] [address] Benito Dupree RBC 5.45 106/ul Critically high 4.20-5.40 [facility] Comment on above: Performed By: #### I NFLUAB #### [facility] [address] [address] [address] Benito Dupree WBC 9.3 103/ul Normal 4.0-11.0 [facility] Comment on above: Performed By: #### I NFLUAB #### [facility] [address] [address] [address] Benito Dupree DIRECT LDLon 08-18-2022 Cholesterol in LDL [Mass/Vol] 50 mg/dL Normal [facility] Comment on above: Performed By: #### T HYLC #### [facility] [address] [address] [address] Benito Dupree DLDL NORMAL SEE BELOW Normal [facility] Comment on above: Result Comment: <100 mg/dl OPTIMAL 100 - 129 mg/dl NEAR OR ABOVE OPTIMAL 130 - 159 mg/dl BORDERLINE HIGH 160 - 189 mg/dl HIGH >190 mg/dl VERY HIGH Performed By: #### T HYLC #### [facility] [address] [address] [address] Benito Dupree GLYCOHEMOGLOBIN A1Con 2021 ADA RECOMMENDATION SEE BELOW Normal [facility] Comment on above: Result Comment: ADA RECOMMENDED LIMIT 4.0 - 6.0 ADA THERAPEUTIC TARGET < 7.0 ACTION SUGGESTED > 7.0 Performed By: #### A 1C #### [facility] [address] [place] [address] Dr. Benito Dupree Glucose [Mass/Vol] 332 mg/dL Normal [facility] Comment on above: Performed By: #### A 1C #### [facility] [address] [place] [address] Dr. Benito Dupree HbA1c (Bld) [Mass fraction] 13.2 % Critically high 4.5-6.2 [facility] Comment on above: Performed By: #### A 1C #### [facility] [address] [place] [address] Dr. Benito Dupree IRONon 08-18-2022 Iron [Mass/Vol] 53.0 ug/dL Normal 50.0-170.0 [facility] Comment on above: Performed By: #### I NFLUAB #### [facility] [address] [place] [address] Dr. Benito Dupree LIPID PROFILEon 08-18-2022 CHOL-HDL RATIO NORM SEE BELOW Normal [facility] Comment on above: Result Comment: 3.3 - 4.4 LOW RISK 4.4 - 7.1 AVERAGE RISK 7.1 - 11.0 MODERATE RISK >11.0 HIGH RISK Performed By: #### T HYLC #### [facility] [address] [place] [address] Dr. Benito Dupree Cholesterol [Mass/Vol] 260 mg/dL Critically high <=200 [facility] Comment on above: Performed By: #### T HYLC #### [facility] [address] [place] [address] Dr. Benito Dupree Cholesterol in HDL [Mass/Vol] 23 mg/dL Critically low 40-60 [facility] Comment on above: Performed By: #### T HYLC #### [facility] [address] [place] [address] Dr. Benito Dupree Cholesterol.total/Chol esterol in HDL [Mass ratio] 11.3 {ratio} Normal [facility] Comment on above: Performed By: #### T HYLC #### [facility] [address] [place] [address] Dr. Benito Dupree HDL NORMAL > or = 60 mg/dl - LO W CARDIOVASCULAR RISK <40 mg/dl - HIGH CARDIOVASCULAR RISK Normal [facility] Comment on above: Performed By: #### T HYLC #### [facility] [address] [place] [address] Dr. Benito Dupree Triglyceride [Mass/Vol] 1711 mg/dL Critically high <=150 [facility] Comment on above: Performed By: #### T HYLC #### [facility] [address] [place] [address] Dr. Benito Dupree VLDL CALC 342.2 mg/dL Normal [facility] Comment on above: Performed By: #### T HYLC #### [facility] [address] [place] [address] Dr. Benito Dupree PROF 14(COMP METB)on 022 Albumin [Mass/Vol] 3.2 g/dL Critically low 3.4-5.0 [facility] Comment on above: Performed By: #### T HYLC #### [facility] [address] [place] [address] Dr. Benito Dupree Albumin/Globulin [Mass ratio] 0.7 {ratio} Normal [facility] Comment on above: Performed By: #### T HYLC #### [facility] [address] [place] [address] Dr. Benito uDpree ALP [Catalytic activity/Vol] 92 U/L Normal 46-116 [facility] Comment on above: Performed By: #### T HYLC #### [facility] [address] [place] [address] Dr. Benito Dupree ALT [Catalytic activity/Vol] 41 U/L Normal 14-59 [facility] Comment on above: Performed By: #### T HYLC #### [facility] [address] [place] [address] Dr. Benito Dupree Anion gap [Moles/Vol] 14.1 mmol/L Normal [facility] Comment on above: Performed By: #### T HYLC #### [facility] [address] [address] [address] Benito Dupree AST [Catalytic activity/Vol] 16 U/L Normal 15-37 [facility] Comment on above: Performed By: #### T HYLC #### [facility] [address] [address] [address] Benito Dupree Bilirubin [Mass/Vol] 0.9 mg/dL Normal 0.2-1.0 [facility] Comment on above: Performed By: #### T HYLC #### [facility] [address] [address] [address] Benito Dupree Calcium [Mass/Vol] 9.1 mg/dL Normal 8.5-10.1 [facility] Comment on above: Performed By: #### T HYLC #### [facility] [address] [address] [address] Benito Dupree Chloride [Moles/Vol] 97 mmol/L Critically low 98-107 [facility] Comment on above: Performed By: #### T HYLC #### [facility] [address] [address] [address] Benito Dupree CO2 [Moles/Vol] 24.9 mmol/L Normal 21.0-32.0 [facility] Comment on above: Performed By: #### T HYLC #### [facility] [address] [address] [address] Benito Dupree Creatinine [Mass/Vol] 0.67 mg/dL Normal 0.55-1.02 [facility] Comment on above: Performed By: #### T HYLC #### [facility] [address] [address] [address] Benito Dupree EGFR-AF MONGOLIAN >60 Normal >=60 [facility] Comment on above: Performed By: #### T HYLC #### [facility] [address] [address] [address] Benito Dupree EGFR-NON AF MONGOLIAN >60 Normal >=60 [facility] Comment on above: Performed By: #### T HYLC #### [facility] [address] [address] [address] Benito Dupree Globulin (S) [Mass/Vol] 4.6 g/dL Normal [facility] Comment on above: Performed By: #### T HYLC #### [facility] [address] [address] [address] Benito Dupree Glucose [Mass/Vol] 402 mg/dL Critically high 74-106 [facility] Comment on above: Performed By: #### T HYLC #### [facility] [address] [address] [address] Benito Dupree Potassium [Moles/Vol] 4.0 mmol/L Normal 3.5-5.1 [facility] Comment on above: Performed By: #### T HYLC #### [facility] [address] [place] [address] Dr. Benito Dupree Protein [Mass/Vol] 7.8 g/dL Normal 6.4-8.2 [facility] Comment on above: Performed By: #### T HYLC #### [facility] [address] [place] [address] Dr. Benito Dupree Sodium [Moles/Vol] 132 mmol/L Critically low 136-145 [facility] Comment on above: Performed By: #### T HYLC #### [facility] [address] [place] [address] Dr. Benito Dupree Urea nitrogen [Mass/Vol] 10.0 mg/dL Normal 7.0-18.0 [facility] Comment on above: Performed By: #### T HYLC #### [facility] [address] [place] [address] Dr. Benito Dupree Urea nitrogen/Creatinine [Mass ratio] 14.9 mg/mg Normal [facility] Comment on above: Performed By: #### T HYLC #### [facility] [address] [place] [address] Dr. Benito Dupree TSHon 08-18-2022 TSH 3.676 uIU/mL Normal 0.358-3.74 0 [facility] Comment on above: Performed By: #### T HYLC #### [facility] [address] [place] [address] Dr. Benito Dupree VITAMIN D 25 OHon 08-18-2022 VIT D 25-OH 13.9 ng/mL Normal [facility] Comment on above: Performed By: #### I NFLUAB #### [facility] [address] [place] [address] Dr. Benito Dupree VIT D RANGES SEE BELOW Normal [facility] Comment on above: Result Comment: <20 ng/mL Vit D deficient 20 - <30 ng/mL Vit D insufficient 30 - 100 ng/mL Vit D sufficient >100 ng/mL Potential Toxicity Performed By: #### I NFLUAB #### [facility] [address] [place] [address] Dr. Benito Dupree AMYLASEon 06-01-2022 Amylase [Catalytic activity/Vol] 29 U/L Normal 25-115 [facility] Comment on above: Performed By: #### I NFLUAB #### [facility] [address] [place] [address] Dr. Benito Dupree CBC AUTO DIFFon 06-01-2022 BASO # 0.1 103/ul Normal 0.0-0.1 [facility] Comment on above: Performed By: #### I NFLUAB #### [facility] [address] [place] [address] Dr. Benito Dupree Basophils/100 WBC (Bld) 0.5 % Normal 0.2-2.0 [facility] Comment on above: Performed By: #### I NFLUAB #### [facility] [address] [place] [address] Dr. Benito Dupree EO # 0.3 103/ul Normal 0.0-0.7 [facility] Comment on above: Performed By: #### I NFLUAB #### [facility] [address] [place] [address] Dr. Benito Dupree Eosinophils/100 WBC (Bld) 2.0 % Normal 0.9-7.0 [facility] Comment on above: Performed By: #### I NFLUAB #### [facility] [address] [place] [address] Dr. Benito Dupree Erythrocyte distribution width (RBC) [Ratio] 15.3 % Critically high 11.0-15.0 [facility] Comment on above: Performed By: #### I NFLUAB #### [facility] [address] [place] [address] Dr. Benito Dupree Hematocrit (Bld) [Volume fraction] 41.5 % Normal 36.0-48.0 [facility] Comment on above: Performed By: #### I NFLUAB #### [facility] [address] [place] [address] Dr. Benito Dupree Hemoglobin (Bld) [Mass/Vol] 12.7 g/dL Normal 12.0-16.0 [facility] Comment on above: Performed By: #### I NFLUAB #### [facility] [address] [place] [address] Dr. Benito Dupree IG # 0.06 10e3/ul Critically high 0.00-0.03 [facility] Comment on above: Performed By: #### I NFLUAB #### [facility] [address] [place] [address] Dr. Benito Dupree IG % 0.4 % Normal 0.0-0.5 [facility] Comment on above: Performed By: #### I NFLUAB #### [facility] [address] [place] [address] Dr. Benito Dupree LYMPH # 1.9 103/ul Normal 1.2-3.8 [facility] Comment on above: Performed By: #### I NFLUAB #### [facility] [address] [place] [address] Dr. Benito Dupree Lymphocytes/100 WBC (Bld) 13.9 % Critically low 20.5-60.0 [facility] Comment on above: Performed By: #### I NFLUAB #### [facility] [address] [place] [address] Dr. Benito Dupree MANUAL DIFF REQ NO Normal [facility] Comment on above: Performed By: #### I NFLUAB #### [facility] [address] [address] [address] Benito Dupree MCH (RBC) [Entitic mass] 24.7 pg Critically low 26.7-34.0 [facility] Comment on above: Performed By: #### I NFLUAB #### [facility] [address] [address] [address] Benito Dupree MCHC (RBC) [Mass/Vol] 30.6 g/dL Normal 29.9-35.2 [facility] Comment on above: Performed By: #### I NFLUAB #### [facility] [address] [place] [address] Dr. Benito Dupree MCV (RBC) [Entitic vol] 80.6 fL Critically low 81.0-99.0 [facility] Comment on above: Performed By: #### I NFLUAB #### [facility] [address] [place] [address] Dr. Benito Dupree MONO # 0.5 103/ul Normal 0.3-0.8 [facility] Comment on above: Performed By: #### I NFLUAB #### [facility] [address] [place] [address] Dr. Benito Dupree Monocytes/100 WBC (Bld) 4.0 % Normal 1.7-12.0 [facility] Comment on above: Performed By: #### I NFLUAB #### [facility] [address] [place] [address] Dr. Benito Dupree NEUT # 10.6 103/ul Critically high 1.4-6.5 [facility] Comment on above: Performed By: #### I NFLUAB #### [facility] [address] [place] [address] Dr. Benito Dupree Neutrophils/100 WBC (Bld) 79.2 % Critically high 43.0-75.0 [facility] Comment on above: Performed By: #### I NFLUAB #### [facility] [address] [place] [address] Dr. Benito Dupree Platelet mean volume (Bld) [Entitic vol] 9.3 fL Critically low 9.5-13.5 [facility] Comment on above: Performed By: #### I NFLUAB #### [facility] [address] [place], [place] [address] Dr. Benito Dupree PLT 391 103/ul Normal 150-450 [facility] Comment on above: Performed By: #### I NFLUAB #### [facility] [address] [place], [place] [address] Dr. Benito Dupree RBC 5.15 106/ul Normal 4.20-5.40 [facility] Comment on above: Performed By: #### I NFLUAB #### [facility] [address] [place], [place] [address] Dr. Benito Dupree WBC 13.4 103/ul Critically high 4.0-11.0 [facility] Comment on above: Performed By: #### I NFLUAB #### [facility] [address] [place], [place] [address] ABD/PELV W CONon [...] for patient's symptoms. Electronically authenticated by: WESTLEY HOLAMAYA Date: 2022-06-01 14:59 Normal [facility] ER URINE PROFILEon 2 Bilirubin Ql (U) Negative Normal NEGATIVE [facility] Comment on above: Performed By: #### U MICRO, ERUR #### [facility] [address] [address] [address] Benito Dupree Clarity (U) SL CLOUDY Abnormal CLEAR [facility] Comment on above: Performed By: #### U MICRO, ERUR #### [facility] [address] [address] [address] Benito Dupree Color (U) YELLOW Normal YELLOW [facility] Comment on above: Performed By: #### U MICRO, ERUR #### [facility] [address] [place] [address] Dr. Benito Dupree ERUAHD A micrscopic examina tion will be performed if indicated. Normal [facility] Comment on above: Performed By: #### U MICRO, ERUR #### [facility] [address] [address] [address] Benito Dupree Glucose Ql (U) Negative Normal NEGATIVE [facility] Comment on above: Performed By: #### U MICRO, ERUR #### [facility] [address] [address] [address] Benito Dupree Hemoglobin Ql (U) LARGE Abnormal NEGATIVE [facility] Comment on above: Performed By: #### U MICRO, ERUR #### [facility] [address] [address] [address] Benito Dupree Ketones Ql (U) Negative Normal NEGATIVE [facility] Comment on above: Performed By: #### U MICRO, ERUR #### [facility] [address] [address] [address] Benito Dupree LEUKOCYTES Negative Normal NEGATIVE [facility] Comment on above: Performed By: #### U MICRO, ERUR #### [facility] [address] [address] [address] Benito Dupree Nitrite Ql (U) Negative Normal NEGATIVE [facility] Comment on above: Performed By: #### U MICRO, ERUR #### [facility] [address] [place] [address] Dr. Benito Dupree pH (U) 5.5 [pH] Normal 5-9 [facility] Comment on above: Performed By: #### U MICRO, ERUR #### [facility] [address] [place] [address] Dr. Benito Dupree SPEC GRAVITY 1.010 Normal 1.005-<=1. 025 [facility] Comment on above: Performed By: #### U MICRO, ERUR #### [facility] [address] [place] [address] Dr. Benito Dupree UA PROTEIN TRACE Normal NEGATIVE/ TRACE [facility] Comment on above: Performed By: #### U MICRO, ERUR #### [facility] [address] [place] [address] Dr. Benito Dupree UR MICRO IND INDICATED Normal [facility] Comment on above: Performed By: #### U MICRO, ERUR #### [facility] [address] [place] [address] Dr. Benito Dupree Urobilinogen Qn (U) 1.0 {Tuyet'U}/dL Normal 0.2 - 1. 0 [facility] Comment on above: Performed By: #### U MICRO, ERUR #### [facility] [address] [place] [address] Dr. Benito Dupree LACTATE/LACTIC ACIDon 2021 Lactate [Moles/Vol] 1.1 mmol/L Normal 0.4-1.9 [facility] Comment on above: Performed By: #### L ACT #### [facility] [address] [place] [address] Dr. Benito Dupree LIPASEon 06-01-2022 Lipase [Catalytic activity/Vol] 111.0 U/L Normal 73.0-393.0 [facility] Comment on above: Performed By: #### I NFLUAB #### [facility] [address] [place], [place] [address] Dr. Benito Dupree PREG HCG QUALon 06-01-2022 , QUAL Negative Normal NEGATIVE [facility] Comment on above: Performed By: #### P REG #### [facility] [address] [place] [address] Dr. Benito Dupree PROF 14(COMP METB)on 022 Albumin [Mass/Vol] 3.6 g/dL Normal 3.4-5.0 [facility] Comment on above: Performed By: #### I NFLUAB #### [facility] [address] [place] [address] Dr. Benito Dupree Albumin/Globulin [Mass ratio] 0.7 {ratio} Normal [facility] Comment on above: Performed By: #### I NFLUAB #### [facility] [address] [place] [address] Dr. Benito Dupree ALP [Catalytic activity/Vol] 90 U/L Normal 46-116 [facility] Comment on above: Performed By: #### I NFLUAB #### [facility] [address] [place] [address] Dr. Benito Dupree ALT [Catalytic activity/Vol] 39 U/L Normal 14-59 [facility] Comment on above: Performed By: #### I NFLUAB #### [facility] [address] [place] [address] Dr. Benito Dupree Anion gap [Moles/Vol] 13.0 mmol/L Normal [facility] Comment on above: Performed By: #### I NFLUAB #### [facility] [address] [place] [address] Dr. Benito Dupree AST [Catalytic activity/Vol] 25 U/L Normal 15-37 [facility] Comment on above: Performed By: #### I NFLUAB #### [facility] [address] [place] [address] Dr. Benito Dupree Bilirubin [Mass/Vol] 1.1 mg/dL Critically high 0.2-1.0 [facility] Comment on above: Performed By: #### I NFLUAB #### [facility] [address] [address] [address] Benito Dupree Calcium [Mass/Vol] 9.4 mg/dL Normal 8.5-10.1 [facility] Comment on above: Performed By: #### I NFLUAB #### [facility] [address] [address] [address] Benito Dupree Chloride [Moles/Vol] 99 mmol/L Normal 98-107 [facility] Comment on above: Performed By: #### I NFLUAB #### [facility] [address] [address] [address] Benito Dupree CO2 [Moles/Vol] 27.3 mmol/L Normal 21.0-32.0 [facility] Comment on above: Performed By: #### I NFLUAB #### [facility] [address] [place] [address] Dr. Benito Dupree Creatinine [Mass/Vol] 0.87 mg/dL Normal 0.55-1.02 [facility] Comment on above: Performed By: #### I NFLUAB #### [facility] [address] [address] [address] Benito Dupree EGFR-AF MONGOLIAN >60 Normal >=60 [facility] Comment on above: Performed By: #### I NFLUAB #### [facility] [address] [place] [address] Dr. Benito Dupree EGFR-NON AF MONGOLIAN >60 Normal >=60 [facility] Comment on above: Performed By: #### I NFLUAB #### [facility] [address] [place] [address] Dr. Benito Dupree Globulin (S) [Mass/Vol] 4.8 g/dL Normal [facility] Comment on above: Performed By: #### I NFLUAB #### [facility] [address] [address] [address] Benito Dupree Glucose [Mass/Vol] 218 mg/dL Critically high 74-106 [facility] Comment on above: Performed By: #### I NFLUAB #### [facility] [address] [address] [address] Benito Dupree Potassium [Moles/Vol] 4.1 mmol/L Normal 3.5-5.1 [facility] Comment on above: Performed By: #### I NFLUAB #### [facility] [address] [place] [address] Dr. Benito Dupree Protein [Mass/Vol] 8.4 g/dL Critically high 6.4-8.2 [facility] Comment on above: Performed By: #### I NFLUAB #### [facility] [address] [place] [address] Dr. Benito Dupree Sodium [Moles/Vol] 135 mmol/L Critically low 136-[address] [facility] Comment on above: Performed By: #### I NFLUAB #### [facility] [address] [place] [address] Dr. Benito Dupree Urea nitrogen [Mass/Vol] 15.0 mg/dL Normal 7.0-18.0 [facility] Comment on above: Performed By: #### I NFLUAB #### [facility] [address] [place] [address] Dr. Benito Dupree Urea nitrogen/Creatinine [Mass ratio] 17.2 mg/mg Normal [facility] Comment on above: Performed By: #### I NFLUAB #### [facility] [address] [place] [address] Dr. Benito Dupree URINE MICROSCOPIC ONLYon BACTERIA TRACE Abnormal NONE SEEN [facility] Comment on above: Performed By: #### U MICRO, ERUR #### [facility] [address] [place] [address] Dr. Benito Dupree Bacteria identified Cx Nom (U) NOT INDICATED Normal [facility] Comment on above: Performed By: #### U MICRO, ERUR #### [facility] [address] [place] [address] Dr. Benito Dupree CAST NONE SEEN Normal NONE SEEN [facility] Comment on above: Performed By: #### U MICRO, ERUR #### [facility] [address] [place] [address] Dr. Benito Dupree Crystals LM Nom (Urine sed) NONE SEEN Normal NONE SEEN [facility] Comment on above: Performed By: #### U MICRO, ERUR #### [facility] [address] [address] [address] Benito Dupree Epithelial cells LM Ql (Urine sed) MODERATE Abnormal NONE SEEN /RARE The [facility] Comment on above: Performed By: #### U MICRO, ERUR #### [facility] [address] [address] [address] Benito Dupree MUCOUS TRACE Abnormal NONE SEEN [facility] Comment on above: Performed By: #### U MICRO, ERUR #### [facility] [address] [address] [address] Benito Dupree RBC 2-5 Abnormal 0-2 [facility] Comment on above: Performed By: #### U MICRO, ERUR #### [facility] [address] [address] [address] Benito Dupree WBC 0-2 Abnormal NONE SEEN [facility] Comment on above: Performed By: #### U MICRO, ERUR #### [facility] [address] [address] [address] Benito Dupree XR hand RT min 3V*on 022 XR hand RT min 3V* [facility] Original Other XR hand RT min 3V* [facility] [employer] Other XR hand RT min 3V* [address] [place] [address] Original Other XR hand RT min 3V* [place] [address] Original Other XR hand RT min 3V* XRay Report Original Other XR hand RT min 3V* Signed Original Other XR hand RT min 3V* Patient: Noel Paul MR#: [id number] [facility] [employer] Other XR hand RT min 3V* : 1990 Acct:[id number] Original Other XR hand RT min 3V* Age/Sex: 31 / F ADM Date: 03/22/22 Original Other XR hand RT min 3V* Loc: XDUCLY Room: pe: REG CLI Original Other XR hand RT min 3V* Attending Dr: Monique SANDOVAL Original Other XR hand RT min 3V* Ordering Provider: LORI Woodard Original Other XR hand RT min 3V* Date of Service: 03/22/22 Original Other XR hand RT min 3V* XR/XR hand RT min 3V*: Finger pain, right Original Other XR hand RT min 3V* Copies to: LORI Dias Original Other XR hand RT min 3V* [address] ain film Original Other XR hand RT min 3V* COMPARISON:None N Scality Other XR hand RT min 3V* HISTORY:Fell going upstairs. RIGHT ring finger injury. Original Other XR hand RT min 3V* No fracture, disloca tion or focal soft tissue abnormality seen. Original Other XR hand RT min 3V* X R/XR hand RT min 3V* Original Other XR hand RT min 3V* IMPRESSION:No acute findings Original Other XR hand RT min 3V* Impression dictated by: Ta Galvan M.D.03/22/2022 4:42 PM Original Other XR hand RT min 3V* Dictation Location: [facility]--03 [facility] [employer] Other XR hand RT min 3V* Transcribed By: PWS 03/22/22 164 [facility] [employer] Other XR hand RT min 3V* Dictated By: Glenn Galvan DO 03/22/22 164 [facility] [employer] Other XR hand RT min 3V* Signed By: [place] [employer] Other XR hand RT min 3V* 03/22/221641 [facility] [employer] Other Vital Signs Date Time Vital Sign Value Performing Clinician Facility 09-05-2025 09:58-0400 Body height 157.5 cm Pato Avelar DPM Work Phone: [facility] 09-05-2025 09:58-0400 Body mass index (BMI) [Ratio] 56.7 kg/m2 Pato Avelar DPM Work Phone: [facility] 09-05-2025 09:58-0400 Body weight 140.62 kg Pato Avelar DPM Work Phone: [facility] 09-05-2025 09:58-0400 Respiratory rate 18 /min Pato Avelar DPM Work Phone: [facility] 2025 14:15-0400 Body height 157.48 cm Monique Emmanuel [employer] Work Phone: [facility] 2025 14:15-0400 Body mass index (BMI) [Ratio] 62.4 kg/m2 Monique Emmanuel [employer] Work Phone: [facility] 2025 14:15-0400 Body weight 154.67 kg Monique Emmanuel [employer] Work Phone: [facility] 2025 14:15-0400 Diastolic blood pressure 80 mm[Hg] Monique Emmanuel [employer] Work Phone: [facility] 2025 14:15-0400 Heart rate 86 /min Moniquegisselle Whitleymer [employer] Work Phone: [facility] 2025 14:15-0400 Respiratory rate 18 /min Monique Lien [employer] Work Phone: [facility] 2025 14:15-0400 SaO2% (BldA) [Mass fraction] 97 % Moniquegisselle Whitleymer [employer] Work Phone: [facility] 2025 14:15-0400 Systolic blood pressure 114 mm[Hg] Monique Lien [employer] Work Phone: [facility] 06-16-2025 11:26-0400 Body temperature 98 [degF] Moniquegisselle Whitleymer [employer] Work Phone: [facility] 06-16-2025 11:26-0400 Diastolic blood pressure 85 mm[Hg] Moniquegisselle Whitleymer [employer] Work Phone: [facility] 06-16-2025 11:26-0400 Heart rate 78 /min Monique Lien [employer] Work Phone: [facility] 06-16-2025 11:26-0400 Respiratory rate 20 /min Monique Lien [employer] Work Phone: [facility] 06-16-2025 11:26-0400 SaO2% (BldA) [Mass fraction] 93 % Moniquegisselle Whitleymer [employer] Work Phone: [facility] 06-16-2025 11:26-0400 Systolic blood pressure 124 mm[Hg] Monique Lien [employer] Work Phone: [facility] 06-16-2025 06:00-0400 Body weight 152 kg Moniquegisselle Whitleymer [employer] Work Phone: [facility] 06-15-2025 03:55-0400 Body height 157.48 cm Moniquegisselle Emmanuel [employer] Work Phone: [facility] 06-15-2025 03:00-0400 Diastolic blood pressure 58 mm[Hg] Moniquegisselle Whitleymer [employer] Work Phone: [facility] 06-15-2025 03:00-0400 Heart rate 80 /min Moniquegisselle Whitleymer [employer] Work Phone: [facility] 06-15-2025 03:00-0400 Inhaled oxygen flow rate 2 L/min Monique Whitleymer [employer] Work Phone: [facility] 06-15-2025 03:00-0400 Respiratory rate 18 /min Moniquegisselle Whitleymer [employer] Work Phone: [facility] 06-15-2025 03:00-0400 SaO2% (BldA) [Mass fraction] 98 % Moniquegisselle Whitleymer [employer] Work Phone: [facility] 06-15-2025 03:00-0400 Systolic blood pressure 126 mm[Hg] Moniquegisselle Whitleymer [employer] Work Phone: [facility] 06-14-2025 22:16-0400 Body height 157.48 cm Moniquegisselle Whitleymer [employer] Work Phone: [facility] 06-14-2025 22:16-0400 Body temperature 98.9 [degF] Monique Whitleymer [employer] Work Phone: [facility] 06-14-2025 22:16-0400 Body weight 145.14 kg Moniquegisselle Whitleymer [employer] Work Phone: [facility] 03-21-2025 14:16-0400 Body height 157.5 cm Pato Avelar DPM Work Phone: [facility] 03-21-2025 14:16-0400 Body mass index (BMI) [Ratio] 56.7 kg/m2 Pato Avelar DPM Work Phone: [facility] 03-21-2025 14:16-0400 Body weight 140.62 kg Pato Avelar DPM Work Phone: [facility] 03-21-2025 14:16-0400 Respiratory rate 16 /min Pato Valentino DPM Work Phone: [facility] 03-07-2025 09:06-0400 Body height 157.5 cm Pato Valentino DPM Work Phone: [facility] 03-07-2025 09:06-0400 Body mass index (BMI) [Ratio] 56.7 kg/m2 Pato Valentino DPM Work Phone: [facility] 03-07-2025 09:06-0400 Body weight 140.62 kg Pato Valentino DPM Work Phone: [facility] 03-07-2025 09:06-0400 Respiratory rate 16 /min Pato Valentino DPM Work Phone: [facility] 02-05-2025 17:00-0400 Body height 157.48 cm [facility] 02-05-2025 17:00-0400 Body mass index (BMI) [Ratio] 59.2 kg/m2 [facility] 02-05-2025 17:00-0400 Body temperature 98.2 [degF] [facility] 02-05-2025 17:00-0400 Body weight 146.96 kg [facility] 02-05-2025 17:00-0400 Diastolic blood pressure 91 mm[Hg] [facility] 02-05-2025 17:00-0400 Heart rate 82 /min [facility] 02-05-2025 17:00-0400 Respiratory rate 18 /min [facility] 02-05-2025 17:00-0400 SaO2% (BldA) [Mass fraction] 98 % [facility] 02-05-2025 17:00-0400 Systolic blood pressure 151 mm[Hg] [facility] 12-28-2024 09:54-0500 Body height 157.5 cm Pacc 3 Work Phone: [facility] 12-28-2024 09:54-0500 Body mass index (BMI) [Ratio] 62.06 kg/m2 [facility] 3 Work Phone: [facility] 12-28-2024 09:54-0500 Body temperature 97.39 [degF] [facility] 3 Work Phone: [facility] 12-28-2024 09:54-0500 Body weight 153.9 kg Pacc 3 Work Phone: [facility] 12-28-2024 09:54-0500 Diastolic blood pressure 73 mm[Hg] Pacc 3 Work Phone: [facility] 12-28-2024 09:54-0500 Heart rate 104 /min Pacc 3 Work Phone: [facility] 12-28-2024 09:54-0500 Respiratory rate 16 /min Pacc 3 Work Phone: [facility] 12-28-2024 09:54-0500 SaO2% (BldA) [Mass fraction] 98 % [facility] 3 Work Phone: [facility] 12-28-2024 09:54-0500 Systolic blood pressure 130 mm[Hg] Pacc 3 Work Phone: [facility] 10-24-2024 14:24-0500 Body height 157.5 cm Pato Brown DPM Work Phone: [facility] 10-24-2024 14:24-0500 Body mass index (BMI) [Ratio] 56.7 kg/m2 Pato Brown DPM Work Phone: [facility] 10-24-2024 14:24-0500 Body weight 140.62 kg Pato Brown DPM Work Phone: [facility] 10-24-2024 14:24-0500 Respiratory rate 18 /min Pato Brown DPM Work Phone: [facility] 10-04-2024 14:48-0500 Body height 157.5 cm Pato Brown DPM Work Phone: [facility] 10-04-2024 14:48-0500 Body mass index (BMI) [Ratio] 56.7 kg/m2 Pato Avelar DPM Work Phone: [facility] 10-04-2024 14:48-0500 Body weight 140.62 kg Pato Avelar DPM Work Phone: [facility] 10-04-2024 14:48-0500 Diastolic blood pressure 79 mm[Hg] Pato Avelar DPM Work Phone: [facility] 10-04-2024 14:48-0500 Heart rate 82 /min Pato Avelar DPM Work Phone: [facility] 10-04-2024 14:48-0500 Systolic blood pressure 129 mm[Hg] Pato Avelar DPM Work Phone: [facility] 09-20-2024 14:37-0400 Body height 157.5 cm Pato Avelar DPM Work Phone: [facility] 09-20-2024 14:37-0400 Body mass index (BMI) [Ratio] 56.7 kg/m2 Pato Avelar DPM Work Phone: [facility] 09-20-2024 14:37-0400 Body weight 140.62 kg Pato Avelar DPM Work Phone: [facility] 09-20-2024 14:37-0400 Diastolic blood pressure 77 mm[Hg] Pato Avelar DPM Work Phone: [facility] 09-20-2024 14:37-0400 Heart rate 79 /min Pato Avelar DPM Work Phone: [facility] 09-20-2024 14:37-0400 Systolic blood pressure 126 mm[Hg] Pato Brown DPM Work Phone: [facility] 09-13-2024 14:46-0400 Body height 157.5 cm Pato Brown DPM Work Phone: [facility] 09-13-2024 14:46-0400 Body mass index (BMI) [Ratio] 56.7 kg/m2 Pato Avelar DPM Work Phone: [facility] 09-13-2024 14:46-0400 Body weight 140.62 kg Pato Avelar DPM Work Phone: [facility] 09-13-2024 14:46-0400 Diastolic blood pressure 78 mm[Hg] Pato Avelar DPM Work Phone: [facility] 09-13-2024 14:46-0400 Heart rate 85 /min Pato Brown DPM Work Phone: [facility] 09-13-2024 14:46-0400 Systolic blood pressure 123 mm[Hg] Pato Brown DPM Work Phone: [facility] 08-30-2024 14:58-0400 Body height 157.5 cm Pato Avelar DPM Work Phone: [facility] 08-30-2024 14:58-0400 Body mass index (BMI) [Ratio] 56.7 kg/m2 Pato Avelar DPM Work Phone: [facility] 08-30-2024 14:58-0400 Body weight 140.62 kg Pato Avelar DPM Work Phone: [facility] 08-30-2024 14:58-0400 Diastolic blood pressure 80 mm[Hg] Pato Avelar DPM Work Phone: [facility] 08-30-2024 14:58-0400 Heart rate 75 /min Pato Brown DPM Work Phone: [facility] 08-30-2024 14:58-0400 Respiratory rate 18 /min Pato Brown DPM Work Phone: [facility] 08-30-2024 14:58-0400 Systolic blood pressure 128 mm[Hg] Pato Brown DPM Work Phone: [facility] 08-02-2024 14:52-0400 Body height 157.5 cm Pato Brown DPM Work Phone: [facility] 08-02-2024 14:52-0400 Body mass index (BMI) [Ratio] 56.7 kg/m2 Pato Avelar DPM Work Phone: [facility] 08-02-2024 14:52-0400 Body weight 140.62 kg Pato Avelar DPM Work Phone: [facility] 08-02-2024 14:52-0400 Diastolic blood pressure 79 mm[Hg] Pato Avelar DPM Work Phone: [facility] 08-02-2024 14:52-0400 Heart rate 82 /min Pato Avelar DPM Work Phone: [facility] 08-02-2024 14:52-0400 Systolic blood pressure 127 mm[Hg] Pato Avelar DPM Work Phone: [facility] 07-24-2024 14:58-0400 Body height 157.5 cm Jaime Woods DO Work Phone: [facility] 07-24-2024 14:58-0400 Body mass index (BMI) [Ratio] 56.7 kg/m2 Jaime Campbellenry DO Work Phone: [facility] 07-24-2024 14:58-0400 Body weight 140.62 kg Jaime Campbellenry DO Work Phone: [facility] 05-16-2024 15:25-0400 Diastolic blood pressure 70 mm[Hg] [employer] Monique Lien Work Phone: [facility] 05-16-2024 15:25-0400 Heart rate 80 /min [employer] Monique Lien Work Phone: [facility] 05-16-2024 15:25-0400 Respiratory rate 22 /min [employer] Monique Lien Work Phone: [facility] 05-16-2024 15:25-0400 SaO2% (BldA) [Mass fraction] 94 % [employer] Monique Lien Work Phone: [facility] 05-16-2024 15:25-0400 Systolic blood pressure 124 mm[Hg] [employer] Monique Emmanuel Work Phone: [facility] 05-16-2024 12:57-0400 Body temperature 98.6 [degF] [employer] Monique Emmanuel Work Phone: [facility] 05-16-2024 12:57-0400 Inhaled oxygen flow rate 6 L/min [employer] Monique Emmanuel Work Phone: [facility] 05-16-2024 10:38-0400 Body mass index (BMI) [Ratio] 56.5 kg/m2 [employer] Monique Emmanuel Work Phone: [facility] 05-16-2024 10:31-0400 Body height 157.48 cm [employer] Monique Emmanuel Work Phone: [facility] 05-16-2024 10:31-0400 Body weight 140.16 kg [employer] Monique Emmanuel Work Phone: [facility] 04-25-2024 13:27-0400 Diastolic blood pressure 85 mm[Hg] aPto Avelar [facility] 04-25-2024 13:27-0400 Heart rate 64 /min Pato Avelar [facility] 04-25-2024 13:27-0400 Mean blood pressure 103 mm[Hg] Pato Avelar [facility] 04-25-2024 13:27-0400 Systolic blood pressure 139 mm[Hg] Pato Avelar [facility] 04-25-2024 13:26-0400 Heart rate 65 /min Pato Redux [facility] 04-25-2024 13:26-0400 Respiratory rate 16 /min Pato Avelar [facility] 04-25-2024 13:26-0400 SaO2% (BldA) [Mass fraction] 93 % Pato Avelar [facility] 04-25-2024 13:26-0400 Blood Pressure Location Pato Avelar [facility] 04-25-2024 13:26-0400 Body temperature 98.42 [degF] Pato Avelar [facility] 04-25-2024 13:26-0400 Diastolic blood pressure 83 mm[Hg] Pato Avelar [facility] 04-25-2024 13:26-0400 Mean blood pressure 100 mm[Hg] Pato Avelar [facility] 04-25-2024 13:26-0400 Systolic blood pressure 135 mm[Hg] Pato Avelar [facility] 02-27-2024 17:36-0400 Body height 154.94 cm [employer] Monique Emmanuel Work Phone: [facility] 02-27-2024 17:36-0400 Body mass index (BMI) [Ratio] 58.4 kg/m2 [employer] Monique Whitleymer Work Phone: [facility] 02-27-2024 17:36-0400 Body temperature 97.7 [degF] [employer] Moniquegisselle Whitleymer Work Phone: [facility] 02-27-2024 17:36-0400 Body weight 140.38 kg [employer] Monique Lien Work Phone: [facility] 02-27-2024 17:36-0400 Heart rate 87 /min [employer] Monique Lien Work Phone: [facility] 02-27-2024 17:36-0400 Respiratory rate 18 /min [employer] Monique Lien Work Phone: [facility] 02-27-2024 17:36-0400 SaO2% (BldA) [Mass fraction] 97 % [employer] Monique Emmanuel Work Phone: [facility] 03-22-2022 16:45-0400 Body height 154.94 cm Monique Dudley Other Original Other 03-22-2022 16:45-0400 Body mass index (BMI) [Ratio] 58.38 kg/m2 Monique Dudley Other Original Other 03-22-2022 16:45-0400 Body temperature 97.9 [degF] Monique Dudley Other Original Other 03-22-2022 16:45-0400 Body weight 140.16 kg Monique Suemond Other Original Other 03-22-2022 16:45-0400 Diastolic blood pressure 93 mm[Hg] Monique Suemond Other Original Other 03-22-2022 16:45-0400 Respiratory rate 20 /min Monique Dudley Other Original Other 03-22-2022 16:45-0400 SaO2% (BldA) [Mass fraction] 98 % Monique Dudley Other Original Other 03-22-2022 16:45-0400 Systolic blood pressure 154 mm[Hg] Monique Suemond Other Original Other Encounters Encounter Date Encounter Type Care Provider Facility Start: 09-05-2025 End: 09-05-2025 Fior Avelar DPM Work Phone: [facility] Start: 09-05-2025 End: 09-05-2025 Bamboo flowsheet Pato Avelar DPM Work Phone: [facility] Start: 09-05-2025 End: 09-05-2025 Office outpatient visit 15 minutes Pato Avelar DPM Work Phone: [facility] Comment on above: Capsulitis of metata rsophalangeal (MTP) joint of right foot (Primary Dx); Contracture of right ankle; Posterior tibial tendonitis of right leg Start: 09-05-2025 End: 09-05-2025 ambulatory PATO AVELAR Not Available Start: 09-03-2025 End: 09-03-2025 ambulatory MONIQUE EMMANUEL Facility:[facility] Start: 2025 End: 2025 ambulatory Monique Emmanuel [employer] Work Phone: [facility] Work Phone: Start: 2025 End: 2025 Patient encounter procedure Inge Adler MD -[facility] Work Phone: Start: 06-15-2025 End: 06-16-2025 ambulatory Monique Emmanuel Facility:[facility] Start: 06-15-2025 Evaluation and manag ement of inpatient Neo Mclaughlin MD -[facility] Work Phone: Start: 06-15-2025 Non-patient / Non-visit Inge abbott MD -[facility] Work Phone: Start: 06-15-2025 observation encounter Monique Emmanuel [employer] Work Phone: [facility] Work Phone: Start: 06-11-2025 End: 06-11-2025 ambulatory MONIQUE EMMANUEL Facility:[facility] Start: 06-11-2025 End: 06-11-2025 Admission to same day surgery center Sean Mata DPM Work Phone: Orthopaedics Comment on above: S/P foot surgery, ri ght (Primary Dx); Chronic pain of right ankle Start: 06-11-2025 End: 06-11-2025 Telemedicine consultation with patient Haydenmaya Henrry Mata DPM Work Phone: Orthopaedics Start: 06-06-2025 ambulatory MONIQUE EMMANUEL Facilit y:[facility] Start: 06-06-2025 End: 06-06-2025 Subsequent hospital visit by physician Mri [facility] Satish (Lg Bore/1.5t) Radiology MRI Comment on above: [...] (Primary Dx) Start: 05-16-2025 End: 05-16-2025 ambulatory MONIQUE S LIEN Facility:[facility] Start: 05-06-2025 End: 05-06-2025 Patient encounter procedure Cast Tech Joi Work Phone: Orthopaedics Comment on above: S/P foot surgery, ri ght (Primary Dx) Start: 05-06-2025 End: 05-06-2025 ambulatory MONIQUE EMMANUEL Facility:[facility] Start: 05-03-2025 End: 05-03-2025 ambulatory Sean Mata DPM Work Phone: Orthopaedics Start: 05-03-2025 End: 05-03-2025 Patient encounter procedure Sean Mata DPM Work Phone: Orthopaedics Comment on above: Cast Start: 04-25-2025 End: 04-25-2025 Patient encounter procedure Sean Mata DPM Work Phone: Orthopaedics Comment on above: Sinus tarsitis, righ t (Primary Dx) S/P foot surgery, ri ght (Primary Dx) Start: 04-25-2025 End: 04-25-2025 ambulatory MONIQUEGISSELLE EMMANUEL Facility:[facility] Start: 04-16-2025 End: 04-16-2025 ambulatory [facility] Facility:[facility] Start: 03-21-2025 End: 03-21-2025 Office outpatient visit 15 minutes Pato Avelar DPM Work Phone: [facility] Comment on above: Capsulitis of metata rsophalangeal (MTP) joint of right foot (Primary Dx); Type 2 diabetes mellitus without complication, unspecified whether usp insulin use Start: 03-21-2025 End: 03-21-2025 ambulatory PATO AVELAR Not Available Start: 03-21-2025 End: 03-21-2025 Bamboo flowsheet Pato Avelar DPM Work Phone: [facility] Start: 03-21-2025 End: 03-21-2025 Bamboo flowsheet Pato Avelar DPM Work Phone: [facility] Start: 03-14-2025 End: 03-14-2025 Subsequent hospital visit by physician Saúl Martínez 1 Work Phone: Radiology Comment on above: S/P foot surgery, ri ght [Z98.890] Start: 03-14-2025 End: 03-14-2025 ambulatory Joya Berkowitzl RT(R) Radiology Comment on above: Radiology XR Start: 03-14-2025 End: 03-14-2025 Patient encounter procedure Joya Dubois RT(R) Radiology Comment on above: S/P foot surgery, ri ght (Primary Dx) Start: 03-07-2025 End: 03-07-2025 Bamboo flowsheet Pato Avelar DPM Work Phone: [facility] Start: 03-07-2025 End: 03-07-2025 Bamboo flowsheet Pato Avelar DPM Work Phone: [facility] Start: 03-07-2025 End: 03-07-2025 Office outpatient visit 15 minutes Pato Avelar DPM Work Phone: [facility] Comment on above: Capsulitis of metata rsophalangeal (MTP) joint of right foot (Primary Dx) Start: 03-07-2025 End: 03-07-2025 ambulatory PATO AVELAR Not Available Start: 02-20-2025 End: 02-20-2025 Telephone encounter Sean Mata DPM Work Phone: [facility] Comment on above: Patient Update Start: 02-13-2025 [...] ght [Z98.890] Start: 02-05-2025 End: 02-05-2025 ambulatory [facility] Work Phone: Start: 02-05-2025 End: 02-05-2025 Patient encounter procedure [facility] Work Phone: Start: 01-23-2025 End: 01-23-2025 ambulatory MONIQUE EMMANUEL Facility:[facility] Start: 01-23-2025 End: 01-23-2025 Patient encounter procedure Sean Mata DPM Work Phone: Orthopaedics Comment on above: S/P foot surgery, ri ght (Primary Dx); Accessory navicular bone of right foot S/P foot surgery, ri ght (Primary Dx) Start: 01-23-2025 ambulatory MONIQUE EMMANUEL Facilit y:[facility] Start: 01-09-2025 End: 01-09-2025 ambulatory MONIQUE EMMANUEL Facility:[facility] Start: 01-09-2025 End: 01-09-2025 Patient encounter procedure Sean LEDESMAM Work Phone: Orthopaedics Comment on above: S/P foot surgery, ri ght (Primary Dx); Accessory navicular bone of right foot S/P foot surgery, ri ght (Primary Dx) Start: 01-02-2025 End: 01-02-2025 Telephone encounter Sean Mata DPM Work Phone: Orthopaedics Start: 12-31-2024 End: 01-01-2025 Telephone encounter Sean Mata DPM Work Phone: [facility] Comment on above: Surgical Followup Start: 12-31-2024 End: 12-31-2024 ambulatory SEAN MATA Facility:[facility] Start: 12-28-2024 End: 12-28-2024 [facility] Work Phone: Pre An[facility] Start: 12-28-2024 End: 12-28-2024 ambulatory MONIQUE EMMANUEL Facility:[facility] Start: 12-28-2024 End: 12-28-2024 Anesthesia consultation [facility] Work Phone: Pre Anesthesia Comment on above: Pre-op evaluation (P rimary Dx); Gastroesophageal reflux disease, unspecified whether esophagitis present; Diabetes mellitus without complication (HCC); BMI 60.0-69.9, adult (HCC); AQUILES (obstructive sleep apnea) Start: 12-28-2024 Encounter for other preprocedural examination MONIQUE EMMANUEL [facility] Start: 12-28-2024 End: 12-28-2024 Preprocedural examination done [facility] Work Phone: [facility] Work Phone: Start: 12-14-2024 End: 12-14-2024 Orders Only Sean LEDESMAM Work Phone: Orthopaedics Comment on above: 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) Start: 12-12-2024 End: 12-12-2024 Telephone encounter Sean Henrry Mata DPM Work Phone: Orthopaedics Comment on [...] Mata DPM Work Phone: [facility] Comment on above: Pain (Primary Dx) Start: 11-26-2024 End: 11-26-2024 ambulatory [facility] Start: 10-24-2024 End: 10-24-2024 Postop follow up visit related to original px Pato Avelar DPM Work Phone: [facility] Comment on above: Stress fracture of r ight foot, initial encounter (Primary Dx); Type 2 diabetes mellitus without complication, 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 supervisor insulin 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 (CMS/[facility]); Accessory navicular bone of right foot Start: 10-24-2024 End: 10-24-2024 ambulatory PATO AVELAR Not Available Start: 10-24-2024 End: 10-24-2024 Bamboo flowsheet Pato Avelar DPM Work Phone: [facility] Start: 10-24-2024 End: 10-24-2024 Bamboo flowsheet Pato Avelar DPM Work Phone: [facility] Start: 10-04-2024 End: 10-04-2024 Postop follow up visit related to original px Pato Avelar DPM Work Phone: [facility] Comment on above: 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); Contracture of right ankle; Stress fracture of right foot, initial encounter Start: 10-04-2024 End: 10-04-2024 ambulatory PATO AVELAR Not Available Start: 10-04-2024 End: 10-04-2024 Bamboo flowsheet Pato Elizabeth Valentino DPM Work Phone: [facility] Start: 10-04-2024 End: 10-04-2024 Bamboo flowsheet Pato A Valentino DPM Work Phone: [facility] Start: 09-20-2024 End: 09-20-2024 Postop follow up visit related to original px Pato Johnson Valentino DPM Work Phone: [facility] Comment on above: 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); Contracture of right ankle Start: 09-20-2024 End: 09-20-2024 ambulatory PATO Elizabeth VALENTINO Not Available Start: 09-20-2024 End: 09-20-2024 Bamboo flowsheet Pato Johnson Valentino DPM Work Phone: [facility] Start: 09-20-2024 End: 09-20-2024 Bamboo flowsheet Pato Johnson Valentino DPM Work Phone: [facility] Start: 09-13-2024 End: 09-13-2024 Postop follow up visit related to original px Pato Avelar DPM Work Phone: [facility] Comment on above: 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); Contracture of right ankle; Type 2 diabetes mellitus without complication, unspecified whether usp insulin use ([facility]) Start: 09-13-2024 End: 09-13-2024 ambulatory PATO AVELAR Not Available Start: 09-07-2024 End: 09-07-2024 Telephone encounter Pato Avelar DPM Work Phone: [facility] Start: 09-05-2024 End: 09-05-2024 Lab Drop off Pato Avelar [facility] Start: 09-05-2024 End: 09-05-2024 ambulatory DPM Pato Avelar Facility:[facility] Start: 08-30-2024 End: 08-30-2024 Office outpatient visit 25 minutes Pato Avelar DPM Work Phone: [facility] Comment on above: 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); Type 2 diabetes mellitus without complication, unspecified whether usp insulin use ([facility]); Heel spur, left; Plantar fasciitis; Contracture of left ankle; Contracture of right ankle Start: 08-30-2024 End: 08-30-2024 Bamboo flowsheet Pato Avelar DPM Work Phone: [facility] Start: 08-30-2024 End: 08-30-2024 Bamboo flowsheet Pato Avelar DPM Work Phone: [facility] Start: 08-02-2024 End: 08-02-2024 Office outpatient visit 15 minutes Pato Avelar DPM Work Phone: [facility] Comment on above: 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); Posterior tibial tendonitis of right leg; Type 2 diabetes mellitus without complication, unspecified whether usp insulin use ([facility]) Start: 08-02-2024 End: 08-02-2024 Bamboo flowsheet Pato Avelar DPM Work Phone: [facility] Start: 08-02-2024 End: 08-02-2024 Bamboo flowsheet Pato Avelar DPM Work Phone: [facility] Start: 07-24-2024 End: 07-24-2024 Office outpatient new 45 minutes Jaime Woods DO Work Phone: [facility] Comment on above: Arthralgia of left t emporomandibular joint (Primary Dx); Left ear pain; Chronic rhinitis; Fullness in ear, left Start: 07-24-2024 End: 07-24-2024 Bamboo flowsheet Jaime Woods DO Work Phone: [facility] Start: 07-24-2024 End: 07-24-2024 Bamboo flowsheet Jaime Woods DO Work Phone: [facility] Start: 07-19-2024 End: 07-19-2024 Office outpatient visit 15 minutes Pato Avelar DPM Work Phone: [facility] Comment on above: Posterior tibial ten donitis of right leg (Primary Dx); Accessory navicular bone of left foot; Type 2 diabetes mellitus without complication, 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 supervisor insulin use ([facility]); Accessory navicular bone of right foot Start: 07-19-2024 End: 07-19-2024 Bamboo flowsheet Pato [...] day surgery center LORI Emmanuel Work Phone: [facility] [place] Start: 05-16-2024 End: 05-16-2024 ambulatory [facility] WALKER-C Monique Emmanuel Work Phone: [facility] Work Phone: Start: 05-03-2024 End: 05-03-2024 ambulatory PATO AVELAR Not Available Start: 04-25-2024 ambulatory Pato Avelar Facili ty:[facility] Start: 04-25-2024 End: 04-25-2024 ambulatory DPM Pato Avelar Facility:[facility] Start: 04-25-2024 End: 04-25-2024 Patient encounter procedure Pato Avelar [facility] Start: 04-16-2024 End: 05-10-2024 Pre-admission assessment Pato Avelar [facility] Start: 04-12-2024 End: 04-12-2024 ambulatory PATO AVELAR Not Available Start: 03-29-2024 End: 03-29-2024 ambulatory PATO AVELAR Not Available Start: 02-27-2024 End: 02-27-2024 ambulatory [facility]-C Moniquegisselle Emmanuel Work Phone: [facility] Work Phone: Start: 02-27-2024 End: 02-27-2024 Patient encounter procedure [facility] WALKER-C Monique Emmanuel Work Phone: [facility] Work Phone: Start: 04-27-2023 [...] medical examination without abnormal findings MONIQUE EMMANUEL [facility] Start: 08-18-2022 End: 08-19-2022 ambulatory MONIQUE EMMANUEL Facility:[facility] Start: 08-18-2022 End: 08-19-2022 Encounter for general adult medical examination without abnormal findings MONIQUE EMMANUEL Facility:[facility] Start: 06-01-2022 End: 06-01-[address] WESTLEY JHA Facility:[facility] Start: 03-22-2022 End: 03-22-2022 ambulatory Monique Dudley Other [facility] [employer] Other Start: 03-22-2022 Office outpatient vi sit 15 minutes Monique Dudley [facility] Procedures Date Procedure Procedure Detail Performing Clinician Start: 06-14-2025 Plain chest X-ray Shruti Emmanuel [facility] Work Phone: Start: 06-06-2025 Mri any jt lower ext rem w/o contrast matrl Sean Mata DPM Work Phone: Start: 04-25-2025 Arthrocentesis aspir &/inj interm jt/burs w/o us Sean Mata DPM Work Phone: Start: 03-14-2025 Radex foot complete minimum 3 views Sean Mata DPM Work Phone: Start: 02-13-2025 Radex foot complete minimum 3 views Sean Mata DPM Work Phone: Start: 12-12-2024 Radex foot complete minimum 3 views Sean Mata DPM Work Phone: Start: 05-16-2024 Debridement [facility] Shruti Emmanuel Work Phone: Start: 05-16-2024 X-ray of left foot [facility] Monique Emmanuel Work Phone: Start: 02-27-2024 Plain X-ray of right shoulder [facility]-C Monique Emmanuel Work Phone: Cholecystectomy Pato pulliam Plan of Treatment Date Care Activity Detail Author Start: 07-06-2034 Urine microalbumin profile DTaP,Tdap,Td Vaccine (7 - Td or Tdap) [facility] Start: 09-06-2025 End: 09-06-2025 Patient encounter procedure 09/06/2025 9:30 AM EDT Office Visit [facility] [address] [place] [address] Katrin Molina DPM [address] [place], [place] [id number] [facility] Start: 09-05-2025 End: 09-05-2025 Patient encounter procedure 09/05/2025 10:40 AM EDT Office Visit [facility] [address] [facility] [address] [place] [address] Pato Avelar DPM [address] [facility] [address] [place] [address] Arrived [facility] Comment on above: Arrived Start: 07-29-2025 Influenza vaccination [facility] Start: 06-16-2025 [facility] Start: 06-15-2025 Sleep disorder assessment [facility] Start: 06-15-2025 End: 06-15-2025 [facility] Start: 06-15-2025 Referral to [facility] Start: 06-15-2025 Hospital admission [facility] Start: 06-11-2025 End: 06-11-2025 Patient encounter procedure 06/11/2025 9:45 AM EDT Office Visit Orthopaedics [address] [place], [place] [id number] Sean Mata, DPM [address] [place] [address] F/U, 3 weeks Orthopaedics Comment on above: F/U, 3 weeks Start: 06-06-2025 End: 06-06-2025 Patient encounter procedure 06/06/2025 8:00 AM EDT Appointment Radiology MRI [address] [place] [address] right ankle Radiology MRI Comment on above: right ankle Start: 05-16-2025 End: 05-16-2025 Patient encounter procedure Orthopaedics Comment on above: right foot F/U, 3 weeks Start: 03-21-2025 End: 03-21-2025 Patient encounter procedure 03/21/2025 2:20 PM EDT Office Visit [facility] [address] [facility] [address] [place] [address] Pato Avelar DPM [address] [address] Capsulitis of metatarsophalangeal (MTP) joint of right foot (Primary Dx); Type 2 diabetes mellitus without complication, unspecified whether usp insulin use [facility] Comment on above: Capsulitis of metatarsophalangeal (MTP) joint of right foot (Primary Dx); Type 2 diabetes mellitus without complication, unspecified whether usp insulin use Start: 03-14-2025 End: 03-14-2025 Patient encounter procedure 03/14/2025 3:45 PM EDT Office Visit Orthopaedics [address] [facility] [place] [address] Sean Mata DPM [address] [place] [address] Post op right foot, SX 12/31/24 Orthopaedics Comment on above: Post op right foot, SX 12/31/24 Start: 03-07-2025 End: 03-07-2025 Patient encounter procedure 03/07/2025 9:00 AM EDT Office Visit [facility] [address] [facility] [address] [place] [address] Pato Avelar, SHITAL [address] [address] Arrived [facility] Comment on above: Arrived Start: 02-13-2025 End: 02-13-2025 Patient encounter procedure Orthopaedics Comment on above: Post op right foot, SX 12/31/24 Start: 01-23-2025 End: 01-23-2025 Patient encounter procedure Orthopaedics Comment on above: Post op right foot, SX 12/31/24 Right Foot Start: 01-09-2025 End: 01-09-2025 Patient encounter procedure 01/09/2025 10:15 AM EST Office Visit Orthopaedics [address] [place] [address] Sean Mata, DPM [address] [place] [address] Post op right foot, SX 12/31/24 Orthopaedics Comment on above: Post op right foot, SX 12/31/24 Start: 12-31-2024 End: 12-31-2024 Admission to same day surgery center 12/31/2024 1:30 PM EST - 12/31/2024 3:30 PM EST Surgery Ambulatory Surgery [address] [place] [address] Sean Mata, DPM [address] [place] [address] RECONSTRUCTION POSTERIOR TIBIAL TENDON W/EXCISION OF ACCESSORY TARSAL NAVICULAR BONE Ambulatory Surgery Comment on above: RECONSTRUCTION POSTERIOR TIBIAL TENDON W /EXCISION OF ACCESSORY TARSAL NAVICULAR BONE Start: 12-31-2024 End: 12-31-2024 Rcnstj pst tibl tdn w/exc accessory tarsl navclr RECONSTRUCTION POSTERIOR TIBIAL TENDON W/EXCISION OF ACCESSORY TARSAL NAVICULAR BONE Accessory navicular bone of right foot 12/31/2024 1:30 PM EST [facility] Start: 12-31-2024 Subsequent hospital visit by physician 12/31/2024 1:30 PM EST Hospital Encounter Ambulatory Surgery [address] [place] [address] Sean Mata DPM [address] [place] [address] 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] Ambulatory Surgery Comment on above: Accessory navicular bone of right foot [ Q74.2] Start: 12-31-2024 End: 12-31-2024 Admission to same day surgery center 12/31/2024 7:30 AM EST - 12/31/2024 9:25 AM EST Surgery Ambulatory Surgery [address] [place] [address] Sean Mata, SHITAL [address] [place] [address] RECONSTRUCTION POSTERIOR TIBIAL TENDON W/EXCISION OF ACCESSORY TARSAL NAVICULAR BONE Ambulatory Surgery Comment on above: RECONSTRUCTION POSTERIOR TIBIAL TENDON W /EXCISION OF ACCESSORY TARSAL NAVICULAR BONE Start: 12-31-2024 End: 12-31-2024 Anesthesia consultation 12/31/2024 7:30 AM EST Anesthesia Event Ambulatory Surgery [address] [place] [address] [place] [address] [place] [address] Ambulatory Surgery Start: 12-31-2024 End: 12-31-2024 Rcnstj pst tibl tdn w/exc accessory tarsl navclr RECONSTRUCTION POSTERIOR TIBIAL TENDON W/EXCISION OF ACCESSORY TARSAL NAVICULAR BONE Accessory navicular bone of right foot 12/31/2024 7:30 AM EST [facility] Start: 12-31-2024 Subsequent hospital visit by physician 12/31/2024 7:30 AM EST Hospital Encounter Ambulatory Surgery [address] [place] [address] Sean Mata, DPM [address] [place] [address] 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] Ambulatory Surgery Comment on above: Accessory navicular bone of right foot [ Q74.2] Start: 12-28-2024 End: 12-28-2024 Anesthesia consultation 12/28/2024 10:10 AM EST PAT Pre Anesthesia [address] [place] [address] PACC right foot, SX 12/31/24 Pre Anesthesia Comment on above: PACC right foot, SX 12/31/24 Start: 11-01-2024 End: 11-01-2024 Patient encounter procedure 11/01/2024 4:20 PM EST Office Visit [facility] [address] [place] [address] [place] [address] Pato Avelar DPM [address] [address] [facility] Start: 10-24-2024 End: 10-24-2024 Patient encounter procedure 10/24/2024 2:40 PM EST Office Visit [facility] [address] [place] [id number] Pato Avelar DPM [address] [address] Stress fracture of right foot, initial encounter (Primary Dx); Type 2 diabetes mellitus without complication, unspecified whether usp insulin use (CMS/HCC) [facility] Comment on above: Stress fracture of right foot, initial e ncounter (Primary Dx); Type 2 diabetes mellitus without complication, 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 supervisor insulin use (CMS/HCC) Start: 10-11-2024 Hepatitis B Vaccine (3 of 3 - 3-dose series) Hepatitis B Vaccine (3 of 3 - 3-dose series) [facility] Start: 10-04-2024 End: 10-04-2024 Patient encounter procedure 10/04/2024 2:40 PM EST Office Visit [facility] [address] [place] [address] [place] [phone] Pato Avelar DPM [address] [address] 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); Contracture of right ankle [facility] Comment on above: Accessory navicular bone of right foot ( Primary Dx); Contracture of right ankle Start: 09-20-2024 End: 09-20-2024 Patient encounter procedure 09/20/2024 2:40 PM EDT Office Visit [facility] [address] [address] Pato Avelar DPM [address] [address] 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); Contracture of right ankle [facility] Comment on above: Accessory navicular bone of right foot ( Primary Dx); Contracture of right ankle Start: 09-13-2024 End: 09-13-2024 Patient encounter procedure 09/13/2024 3:20 PM EDT Office Visit [facility] [address] [address] Pato Avelar DPM [address] [address] [facility] Start: 09-12-2024 End: 09-12-2024 Patient encounter procedure 09/12/2024 3:00 PM EDT Office Visit [facility] [address] [place] [address] Pato Avelar DPM [address] [address] [facility] Start: 09-05-2024 End: 09-05-2024 Patient encounter procedure 09/05/2024 7:30 AM EDT Procedure Visit [facility] Pato Avelar, DPM [address] [address] [facility] Start: 08-30-2024 End: 08-30-2024 Patient encounter procedure 08/30/2024 2:50 PM EDT Office Visit [facility] [address] [facility] [address] [place] [address] Pato Avelar DPM [address] [address] 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); Type 2 diabetes mellitus without complication, unspecified whether usp insulin use (CMS/[facility]) [facility] Comment on above: Accessory navicular bone of right foot ( Primary Dx); Type 2 diabetes mellitus without complication, 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 supervisor insulin use (CMS/HCC) Start: 08-02-2024 End: 08-02-2024 Patient encounter procedure [facility] Comment on above: Accessory navicular bone of right foot ( Primary Dx); Posterior tibial tendonitis of right leg; Type 2 diabetes mellitus without complication, 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 supervisor insulin use (CMS/[facility]) Start: 07-29-2024 Covid-19 Vaccine ( season) Covid-19 Vaccine ( season) [facility] Start: 07-29-2024 Influenza vaccination Influenza Vaccine (#1) [facility] Start: 07-24-2024 End: 07-24-2024 Patient encounter procedure [facility] Comment on above: Arrived Start: 07-19-2024 End: 07-19-2024 Patient encounter procedure 07/19/2024 4:00 PM EDT Office Visit [facility] [address] [place] [address] Pato Avelar DPM [address] [address] Accessory navicular bone of left foot (Primary Dx); Type 2 diabetes mellitus without complication, unspecified whether usp insulin use (CMS/[facility]) [facility] Comment on above: Accessory navicular bone of left foot (P rimary Dx); Type 2 diabetes mellitus without complication, unspecified whether usp insulin use ([facility]/HCC) Start: 05-16-2024 [facility] Start: 05-16-2024 [facility] Start: 2018 Screening for malignant neoplasm of cervix [facility] Start: 2009 Screening for malignant neoplasm of cervix [facility] Start: 2007 Pneumococcal vaccination Pneumococcal Vaccine (1 of 2 - PCV) [facility] Start: 2007 Urine screening for protein Diabetes: Urine Protein Screening [facility] Start: 2006 Annual PCP Team Chronic Disease Visit Annual PCP Team Chronic Disease Visit [facility] Start: 2006 Anxiety Screening Anxiety Screening [facility] Start: 2006 Depression Screening Depression Screening [facility] Start: 2006 Hepatitis B surface antibody level LDL Cholesterol [facility] Start: 2006 Hepatitis C screening Hepatitis C Screening [facility] Start: 2006 HIV screening HIV Screening [facility] Start: 1999 Urine microalbumin profile DTaP,Tdap,Td Vaccine (6 - Tdap) [facility] Start: 1998 Diabetic foot examination Diabetic Foot Exam [facility] Start: 1998 Glaucoma screening [facility] Start: 1998 Hepatitis B screening Urine Albumin:Creatinine Ratio [facility] Start: 1993 Hemoglobin A1c [facility] Start: 1988 Hemoglobin A1c measurement Diabetes: Hemoglobin A1C [facility] Anion gap measurement [facility] Application short le g cast walking/ambulatory CAST DAVID LEG, SHORT(WALKING) Procedures Routine Sinus tarsitis, right Ordered: 04/25/2025 [facility] Work Phone: Comment on above: Ordered: 04/25/2025 Basophils [#/volume] in Blood by Automated count [facility] Basophils/100 leukoc ytes in Blood by Automated count [facility] Calculated LDL kesha sterol level [facility] Cholesterol.total/Ch oleste rol in HDL [Mass Ratio] in Serum or Plasma [facility] Eosinophils/100 leuk ocytes in Blood by Automated count [facility] Erythrocyte distribu tion width [Ratio] by Automated count [facility] Erythrocytes [#/volu me] in Blood [facility] Glucose [Mass/volume ] in Serum or Plasma [facility] Glucose measurement estimated from glycated hemoglobin [facility] Hematocrit [Volume Fraction] of Blood [facility] Hemoglobin [Mass/vol ume] in Blood [facility] Hemoglobin A1c/Hemoglobin.total in Blood [facility] Leukocytes [#/volume ] corrected for nucleated erythrocytes in Blood by Automated coun [facility] Leukocytes [#/volume ] in Blood [facility] Lymphocytes [#/volum e] in Blood by Automated count [facility] Lymphocytes/100 leuk ocytes in Blood by Automated count [facility] MCH [Entitic mass] b y Automated count [facility] MCHC [Mass/volume] b y Automated count [facility] MCV [Entitic volume] by Automated count [facility] Monocytes [#/volume] in Blood by Automated count [facility] Monocytes/100 leukoc ytes in Blood by Automated count [facility] End: 06-15-2026 MR Ankle - right WO contrast MRI ANKLE WO IVCON RIGHT Radiology Routine Chronic pain of right ankle 1 Occurrences starting 05/16/2025 until 06/15/2026 [facility] Work Phone: Comment on above: 1 Occurrences starting 05/16/2025 until 06/15/2026 MR Foot - right WO contrast MR foot right wo IV contrast Imaging Routine Stress fracture of right foot, initial encounter Ordered: 10/04/2024 [facility] Work Phone: Comment on above: Ordered: 10/04/2024 Neutrophils [#/volum e] in Blood by Automated count [facility] Neutrophils/100 leuk ocytes in Blood by Automated count [facility] Nucleated erythrocyt es [Presence] in Blood by Automated count [facility] Patient Education Know your Meds [facility] Work Phone: Patient referral [facility] Work Phone: Platelet mean volume [Entitic volume] in Blood by Automated count [facility] Platelets [#/volume] in Blood [facility] VLDL cholesterol measurement [facility] XR Foot - right 3 Views XR foot 3+ views right Imaging Routine Accessory navicular bone of right foot 09/13/2024 3:04 PM EDT [facility] Work Phone: XR Foot - right 3 Views XR foot 3+ views right Imaging Routine Accessory navicular bone of right foot 08/02/2024 3:28 PM EDT [facility] Work Phone: End: 02-02-2026 XR Foot - right AP and Lateral and oblique XR FOOT GENERAL 3V AP/LAT/OBL RIGHT Radiology Routine S/P foot surgery, right 1 Occurrences starting 01/03/2025 until 02/02/2026 [facility] Work Phone: Comment on above: 1 Occurrences starting 01/03/2025 until 02/02/2026 End: 02-10-2026 XR Foot - right AP and Lateral and oblique XR FOOT GENERAL 3V AP/LAT/OBL RIGHT Radiology Routine S/P foot surgery, right 1 Occurrences starting 01/16/2025 until 02/10/2026 [facility] Work Phone: Comment on above: 1 Occurrences starting 01/16/2025 until 02/10/2026 End: 04-07-2026 XR Foot - right AP and Lateral and oblique XR FOOT GENERAL 3V AP/LAT/OBL RIGHT Radiology Routine S/P foot surgery, right 1 Occurrences starting 03/14/2025 until 04/07/2026 [facility] Work Phone: Comment on above: 1 Occurrences starting 03/14/2025 until 04/07/2026 Immunizations Immunization Date Immunization Notes Care Provider [facility] 07-19-2002 hepatitis B vaccine, pediatric or pediatric/adolescent dosage Jaime Woods DO Work Phone: [facility] 07-19-2002 measles, mumps and rubella virus vaccine Jaime Woods DO Work Phone: [facility] 04-16-1993 diphtheria, tetanus toxoids and pertussis vaccine Jaime Woods DO Work Phone: [facility] 04-16-1993 trivalent poliovirus vaccine, live, oral Jaime Woods DO Work Phone: [facility] 05-18-1990 haemophilus influenz ae type b vaccine, conjugate unspecified formulation Jaime Chuck DO Work Phone: [facility] 10-13-1989 diphtheria, tetanus toxoids and pertussis vaccine Jaime Campbelloscar DO Work Phone: [facility] 10-13-1989 measles, mumps and rubella virus vaccine Jaime Woods DO Work Phone: [facility] 10-13-1989 trivalent poliovirus vaccine, live, oral Jaime Woods DO Work Phone: [facility] 05-11-1989 diphtheria, tetanus toxoids and pertussis vaccine Jaime Kitsierra DO Work Phone: [facility] 03-17-1989 diphtheria, tetanus toxoids and pertussis vaccine Jaime Campbelloscar DO Work Phone: [facility] 03-17-1989 trivalent poliovirus vaccine, live, oral Jaime Woods DO Work Phone: [facility] 1988 diphtheria, tetanus toxoids and pertussis vaccine Jaime Campbelloscar DO Work Phone: [facility] 1990 trivalent poliovirus vaccine, live, oral Jaime Campbelloscar DO Work Phone: [facility] Payers Date Payer Category Payer Self-pay [id number] 2024 Unknown [id number] 2020 [employer] [place] [employer] 1.2.8 [id number] 15 2020 Unknown [id number]. [id number] 1988 Unknown [id number] 2.16.84 0.1.311733.3.579.2.593 1988 Unknown [id number] 2.16.84 0.1.484543.3.579.2.593 1988 Unknown [id number] 2.16.84 0.1.486585.3.579.2.593 1988 Unknown [id number] 2.16.84 0.1.237150.3.579.2.593 1988 Unknown [id number] 2.16.84 0.1.331226.3.579.2.593 1988 Unknown [id number] 2.16.84 0.1.785270.3.579.2.593 1988 Unknown [id number] 2.16.84 0.1.762309.3.579.2.593 1988 Unknown [id number] 2.16.84 0.1.197094.3.579.2.593 1988 Unknown [id number] 2.16.8 40.1.742653.3.579.2.727 1988 Unknown [id number] 2.16.84 0.1.614327.3.579.2.1259 1988 Unknown [id number] 2.16.84 0.1.570333.3.579.2.9 1988 Unknown [id number] 2.16.84 0.1.850429.3.579.2.1259 1988 Unknown [id number] 2.16.84 0.1.539147.3.579.2.1259 1988 Unknown [id number] 2.16.84 0.1.042971.3.579.2.1259 1988 Unknown [id number] 2.16.84 0.1.709187.3.579.2.1259 1988 Unknown [id number] 2.16.8 40.1.353976.3.579.2.727 1988 Unknown [id number] 2.16.8 40.1.341211.3.579.2.1259 1988 Unknown [id number] 2.16.84 0.1.401265.3.579.2.9 1988 Unknown [id number] 2.16.84 0.1.228252.3.579.2.9 1988 Unknown [id number] 2.16.84 0.1.189003.3.579.2.9 1988 Unknown [id number] 2.16.84 0.1.506285.3.579.2.1258 1988 Unknown [id number] 2.16.84 0.1.832115.3.579.2.9 1988 Unknown [id number] 2.16.84 0.1.232294.3.579.2.1258 1988 Unknown [id number] 2.16.84 0.1.491112.3.579.2.1259 1961 [facility] [id number] 2.16.840.1.148176.19 Unknown [id number] 2.16.8 40.1.425443.3.579.2.531 Social History Date Type Detail Facility Unknown if ever smoked Original Other Start: 08-02-2024 End: 09-05-2025 Sex Assigned At [facility] Start: 10-25-2018 End: 03-29-2024 Tobacco smoking status IDIS Never smoked tobacco (finding) [facility] Start: 1990 Sex Assigned At Female [facility] Tobacco smoking status No Smoking Status Entered [facility] Start: 03-29-2024 End: 12-28-2024 Tobacco use and exposure Smokeless tobacco non-user [facility] Start: 08-02-2024 End: 09-05-2025 Alcoholic beverage intake Lifetime non-drinker (finding) [facility] Start: 08-02-2024 End: 09-05-2025 History of Social function [facility] Start: 1990 Sex assigned at Not on file [facility] Tobacco smoking status IDIS Tobacco smoking consumption unknown [facility] Adult Depression Screening Assessment 2 [facility] Start: 02-05-2025 Sex Female (finding) [facility] NEGATED: Highlighted rowStart: NINF History of tobacco use Passive smoker [facility] Medical Equipment Procedure Code Equipment Code Equipment Origin al Text Equipment Identifier Dates Wound debridement Tendon/ligamen t bone anchor, non-bioabsorbable ([id number] Start: 05-16-2024 Feura Bush Suturetak Fiberwire 1 .5 Strathcona 2 Joselin Biocomposite 26.2mm Suture - [id number] Start: 12-31-2024 Blood Sugar Diagnostic (Onetouch Ultra Test) strip Start: 02-05-2025 Blood Sugar Diagnostic (Onetouch Ultra Test) strip Start: 02-05-2025 Blood Sugar Diagnostic (Onetouch Ultra Test) strip Start: 02-05-2025 Blood Sugar Diagnostic (Onetouch Ultra Test) strip Start: 02-05-2025 Goals Date Patient Goal Desired Activity /State Functional Status Date Assessment Result Facility 04-25-2024 Functional Status No [facility] Clinical Notes 03-22-2022 to 09-03-2025 Note Date & Type Note Facility 09-03-2025 Note HNO ID: [id number] Author: SEAN MATA DPM Service: ? Author Type: Physician Type: Progress Notes Filed: 09/03/2025 08:56 Note Text: PRIMARY SERVICE: [facility] SUBJECTIVE: Patient is seen today with her son present due to concerns of continued pain at her surgical site at the medial aspect of the right ankle. She has had extensive physical therapy including water therapy and has custom foot orthotics does not have any improvement Medical: PAST MEDICAL HISTORY Diagnosis Date Diabetes [...] tablet by mouth once daily. 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 DEXCOM G7 SENSOR eduin [...] 3 and in no apparent acute distress. The patient is 5 feet 2 and 339 pounds. NEUROVASCULAR: Intact and unchanged right DERMATOLOGIC: Unremarkable as related to the chief complaint right ORTHO/MUSCULOSKELETAL: Patient relates tenderness at the medial retromalleolar region of the right ankle along the posterior tibial tendon course. There is approximate -10 degrees of ankle joint dorsiflexion with the knee extended right ASSESSMENT: Morbid obesity with chronic posterior tibial tendinitis of the right lower extremity TREATMENT TODAY: Evaluation management/OV Discussed results of clinical and MRI examination with the patient in detail along with treatment options. Advised that frankly she has a very tight Achilles tendon along with a history of 2 surgeries in the medial ankle for this problem. MRI is negative for any abnormality of significance. I do think she needs to address her BMI significantly to see if that makes a difference because she does have a tight Achilles tendon which puts a lot of stress on the posterior tibial tendon. She said supportive shoes do not help any nor do custom foot orthotics. Patient to assess and will follow-up as needed pending progress as I feel she has reached MMI from my standpoint. SIGNATURE: Sean Mata DPM DATE of SERVICE: 09/03/2025 TIME of SERVICE: 8:[address] [facility] 06-15-2025 Evaluation note Diagnosis Onset Date Resolution Chest pain acute June 15 1:59am Diabetes mellitus acute June 152024 1:59am [facility] Work Phone: 1(851) 680-439607-19-2025 Evaluation note* Diagnosis Onset Date Resolution Status Admit Date Diabetes mellitus acute June 152024 1:59am Chest pain resolved June 15 1:59am [facility] Work Phone: 1(747) 780-816207-15-2025 NoteHNO ID: [id number] Author: SEAN MATA DPM Service: ? Author Type: Physician Type: Progress Notes Filed: 06/11/2025 10:13 Note Text: PRIMARY SERVICE: [facility] 9:48 AM through 10:18 AM SUBJECTIVE: [...] tablet by mouth once daily. 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 DEXCOM G7 SENSOR eduin [...] the deltoid and spring ligaments as described. Fence Making Machine Operator: PSCB Transcribe Date/Time: Jun 06 2025 11:37A Dictated by : RADHA TYSON MD This examination was interpreted and the report reviewed and electronically signed by: KATIANA FLORES MD on Jun 06 2025 2:13PM EST Results-Findings * * *Final Report* * * DATE OF EXAM: Jun 06 2025 8:43AM [facility] 0164 - MRI ANKLE WO IVCON [...] tibiofibular ligament: I (more content not included)... [facility]07-15-2025 History of Present illness Narrative* Sean Mata DPM - 06/11/2025 10:08 AM EDT Images from the original note were not included. PRIMARY SERVICE: [facility] 9:48 AM through 10:18 AM SUBJECTIVE: [...] tablet by mouth once daily. 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 DEXCOM G7 SENSOR eduin [...] the deltoid and spring ligaments as described. Fence Making Machine Operator: [facility] Transcribe Date/Time: Jun 06 2025 11:37A Dictated by : RADHA TYSON MD This examination was interpreted and the report reviewed and electronically signed by: KATIANA FLORES MD on Jun 06 2025 2:13PM EST Results-Findings * * *Final Report* * * DATE OF EXAM: Jun 06 2025 8:43AM [facility] 0164 - MRI ANKLE WO IVCON [...] History MRI ANKLE WO IVCON RIGHT (Order #[id number]) on 06/06/2025 - Order Result History Report [...] of SERVICE: 10:08 AM [facility] History of Present illness Narrative* Mary Alvarez [...] PATIENT PRESENTS WITH AN IMPLANTABLE OR ATTACHED AUTOMATIC THREAD WINDER: Yes [facility] RADIOLOGY DEPARTMENT: MR; Exam(s) Completed: Lower MSK: Ankle/Hind Foot, right . Aromatherapy Administered: No PERIPHERAL IV DATA: Not applicable SIGNED BY: RT Dami(Misha) June 06, 2025 8:17 AM documented in this encounterCinc[facility]07-10-2025 NoteHNO ID: [id number] Author: MARY ALVAREZ RT(R) Service: ? Author [...] PATIENT PRESENTS WITH AN IMPLANTABLE OR ATTACHED AUTOMATIC THREAD WINDER: Yes [facility] RADIOLOGY DEPARTMENT: MR; Exam(s) Completed: Lower MSK: Ankle/Hind Foot, right . Aromatherapy Administered: No PERIPHERAL IV DATA: Not applicable SIGNED BY: RT Dami(R) June 06, 2025 8:17 [facility]06-20-2025 Telephone encounter Note* Telephone Encounter - Natalia Barrios CT - 05/17/2025 12:00 PM EDT Patients boot in no longer inflating or button is broken. Her mother will be coming in this way next week. She will bring the boot to change it out. Patient lives in [place]. [facility]06-20-[facility]25 Miscellaneous Notes* Telephone Encounter - Natalia Barrios CT - 05/17/2025 12:00 PM EDT Patients boot in no longer inflating or button is broken. Her mother will be coming in this way next week. She will bring the boot to change it out. [place] documented in this encounterC[facility]06-19-2025 NoteHNO ID: [id number] Author: BEVERLY DOBSON Cast Tech Service: ? Author Type: Gold Marker Type: Progress Notes Filed: 05/16/2025 15:24 Note Text: Patient in today for scheduled appointment. Cast removed. Right leg cleansed with Wound wash, sea-clens and debrisoft. Examined by Dr. Mata. Patient to go int a boot she has at home. Beverly Dobson [facility]06-19-2025 History of Present illness Narrative* Beverly Dobson Cast Tech - 05/16/2025 3:23 PM EDT Patient in today for scheduled appointment. Cast removed. Right leg cleansed with Wound wash, sea-clens and debrisoft. Examined by Dr. Mata. Patient to go int a boot she has at home. HAYES Johnson documented in this encounterCincinnati [facility]06-19-2025 NoteHNO ID: [id number] Author: SEAN MATA DPM Service: ? Author Type: Physician Type: Progress Notes Filed: 05/16/2025 14:44 Note Text: Medical intake sheet from May 16, 2025 , was updated by patient, reviewed, and was made part of the patient's chart. Sean Mata DPM PRIMARY SERVICE: [facility] SUBJECTIVE: Patient is seen today for [...] tablet by mouth once daily. 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 DEXCOM G7 SENSOR eduin [...] and further discuss treatment options SIGNATURE: [facility] History of Present illness Narrative* Sean Mata DPM - 05/16/2025 2:41 PM EDT Medical intake sheet from May 16, 2025 , was updated by patient, reviewed, and was made part of the patient's chart. Sean Mata DPM PRIMARY SERVICE: [facility] SUBJECTIVE: Patient is seen today for [...] tablet by mouth once daily. 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 DEXCOM G7 SENSOR eduin [...] SIGNATURE: Sean Mata DPM documented in this encounterCinc[facility]06-09-2025 NoteHNO ID: [id number] Author: BEVERLY DOBSON Cast Tech Service: ? Author Type: Gold Marker Type: Progress Notes Filed: 05/06/2025 16:02 Note [...] doctor during next scheduled appointment/prn. Beverly Dobson [facility]06-09-2025 History of Present illness Narrative* [...] up with doctor during next scheduled appointment/prn. HAYES Johnson documented in this encounterCinc[facility]06-06-2025 Telephone encounter Note * Telephone Encounter - Staci Powers - 05/03/2025 2:59 PM EDT Patient called the office to schedule a cast change as suggested by Lashon. No order placed, unfortunately due to the time restraints we had to schedule for Tuesday. [facility]06-06-2025 Miscellaneous Notes* Telephone Encounter - Staci Powers - 05/03/2025 2:59 PM EDT Patient called the office to schedule a cast change as suggested by Lashon. No order placed, unfortunately due to the time restraints we had to schedule for Tuesday. documented in this encounterCinc[facility]05-29-2025 NoteHNO ID: [id number] Author: BEVERLY DOBSON Cast Tech Service: ? Author Type: Gold Marker Type: Progress Notes Filed: 04/25/2025 15:14 Note Text: Applied A Short Leg Weightbearing Cast to the right leg. Instructions on cast care given. A medium Cast Shoe was dispensed. Will f/u as scheduled/prn. MEE [facility]University [facility]05-29-[facility] History of Present illness Narrative* Beverly Dobson Cast Tech - 04/25/2025 3:13 PM EDT Applied A Short Leg Weightbearing Cast to the right leg. Instructions on cast care given. A medium Cast Shoe was dispensed. Will f/u as scheduled/prn. HAYES Johnson documented in this encounterCinc[facility]05-29-2025 NoteHNO ID: [id number] Author: SEAN MATA DPM Service: ? Author Type: Physician Type: Progress Notes Filed: 04/25/2025 14:38 Note Text: PRIMARY SERVICE: [facility] SUBJECTIVE: Patient is seen today for [...] by mouth once daily. - DEXCOM G7 SHEET ROCK APPLIER misc as directed. - DEXCOM G7 SENSOR [...] these instructions. Informed Consent Consent Obtained: Verbal [place] Protocol A moment to CARE was completed. [...] of SERVICE: 04/25/2025 TIME of SERVICE: 2:09 [facility]05-29-2025 History of Present illness Narrative* Sean Mata DPM - 04/25/2025 2:09 PM EDT Associated Order(s): Additional Injections: R subtalar joint Post-Procedure Diagnose(s): Sinus tarsitis, right Images from the original note were not included. PRIMARY SERVICE: [facility] SUBJECTIVE: Patient is seen today for [...] tablet by mouth once daily. 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 DEXCOM G7 SENSOR eduin [...] these instructions. Informed Consent Consent Obtained: Verbal [place] Protocol A moment to CARE was completed. [...] of SERVICE: 2:09 PM documented in this encounterCinc[facility]05-20-2025 NoteHNO ID: [id number] Author: SEAN MATA DPM Service: ? Author Type: Physician Type: Progress Notes Filed: 04/16/2025 14:48 Note Text: PRIMARY SERVICE: [facility] Virtual visit with Zoom: 2:15 to [...] tablet by mouth once daily. 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 DEXCOM G7 SENSOR eduin [...] week for evaluation. Explained I really cannot manager technical sales what is going on without examining her clinically to determine the best plan of care. Continue icing and oral ibuprofen in the meantime along with the return to her Aircast cam walker boot. SIGNATURE: Sean Mata DPM DATE of SERVICE: 04/16/2025 TIME of SERVICE: 2:42 [facility]04-24-2025 History of Present illness Narrative* Pato Avelar, DPM - 03/21/2025 2:20 PM EDT Patient: Noel Paul : 1990 PCP: Erich Garcia MD SUBJECTIVE This is a 34 y.o. female that presents today s/p right revisional modified Kidner right foot by Dr Mata at [facility]. Pt denies n/f/v/c and has negative [...] History: Past Medical History: Diagnosis Date Diabetes ([facility]) Ear problems GERD (gastroesophageal reflux disease) [...] diabetes mellitus without complication, 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 supervisor insulin use PLAN Continue with physical therapy Patient to return to orthotics Patient to continue with oral anti - inflammatories as needed for pain and recommended OTC medications such as tylenol or Ibuprofen Pato Avelar DPM documented in this encounterThree Rivers [id number] NoteHNO ID: [id number] Author: NATALIA BARRIOS CT Service: ? Author Type: Clinical Gold Marker Type: Progress Notes Filed: 03/14/2025 16:37 Note Text: Dispensed size Medium ASO to right foot.[facility]04-17-2025 History of Present illness Narrative* Natalia Barrios CT - 03/14/2025 4:37 PM EDT Dispensed size Medium ASO to right foot. * Sean Mata DPM - 03/14/2025 3:41 PM EDT PRIMARY SERVICE: [facility] SUBJECTIVE: Patient is seen today for [...] needed for up to 10days. 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 DEXCOM G7 SENSOR eduin [...] SIGNATURE: Sean Mata DPM documented in this encounterCincinnati [facility]rin[facility]04-17-2025 NoteHNO ID: [id number] Author: SEAN MATA DPM Service: ? Author Type: Physician Type: Progress Notes Filed: 03/14/2025 16:01 Note Text: PRIMARY SERVICE: [facility] SUBJECTIVE: Patient is seen today for [...] for up to 10 days. 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 DEXCOM G7 SENSOR eduin [...] ASO ankle brace today SIGNATURE: Sean Mata [facility]04-17-2025 Note HNO ID: [id number] Author: JOYA DUBOIS RT(R) Service: ? Author [...] PATIENT PRESENTS WITH AN IMPLANTABLE OR ATTACHED AUTOMATIC THREAD WINDER: No RADIOLOGY DEPARTMENT: General X-ray: Exam(s) Completed: Lower Extremity X-Ray(s): Foot, Right and Wt. Bearing PERIPHERAL IV DATA: Not applicable SIGNED BY: RT Ezequiel(R) March 14, 2025 3:32 [facility]04-17-2025 History of Present illness Narrative* Joya [...] PATIENT PRESENTS WITH AN IMPLANTABLE OR ATTACHED AUTOMATIC THREAD WINDER: No RADIOLOGY DEPARTMENT: General X-ray: Exam(s) Completed: Lower Extremity X- Ray(s): Foot, Right and Wt. Bearing PERIPHERAL IV DATA: Not applicable SIGNED BY: RT Ezequiel(R) March 14, 2025 3:32 PM documented in this encounterCinc[facility]04-10-2025 History of Present illness Narrative* Pato Avelar, CALLIEM - 03/07/2025 9:00 AM EDT Patient: Noel Paul : 1990 PCP: Erich Garcia MD SUBJECTIVE This is a 34 y.o. female that presents today s/p right revisional modified Kidner right foot by Dr Mata at [facility]. Pt denies n/f/v/c and has negative [...] History: Past Medical History: Diagnosis Date Diabetes ([facility]) Ear problems GERD (gastroesophageal reflux disease) [...] pack Pato Avelar DPM documented in this encounterThree Rivers HealthcarePlgwlfrrtz97-22-4226 Telephone encounter Note* Telephone Encounter - Chris Bhatt OCCA - 02/20/2025 4:21 PM EDT Called and informed staff she may being partial weight bearing. [facility]03-26-2025 Miscellaneous Notes* Telephone Encounter - Chris Bhatt OCCA - 02/20/2025 4:21 PM EDT Called and informed staff she may being partial weight bearing. * Telephone Encounter - Marva Bhardwaj - 02/20/2025 4:06 PM EDT Bonilla from [facility] PT Dept is calling Sean Mata DPM today to request weightbearing guide lines for patient PT CB [phone] FAX [phone] Patient has been identified by name and birthdate. Duration of symptoms: N/A Person calling: caregiver: Call patient at: [phone] (home) [phone] (cell) Was an appointment scheduled: No Closing statement: Results or non-symptom based questions: Thank you for calling [facility], your call will be returned within the next business day. Marva Almeida documented in this encounterCinc[facility]03-26-2025 Telephone encounter Note * Telephone Encounter - Marva Bhardwaj - 02/20/2025 4:06 PM EDT Bonilla from [facility] PT Dept is calling Sean Mata DPM today to request weightbearing guide lines for patient PT CB [phone] FAX [phone] Patient has been identified by name and birthdate. Duration of symptoms: N/A Person calling: caregiver: Call patient at: [phone] (home) [phone] (cell) Was an appointment scheduled: No Closing statement: Results or non-symptom based questions: Thank you for calling [facility], your call will be returned within the next business day. Marva Almeida [facility]03-19-2025 NoteHNO ID: [id number] Author: BEVERLY DOBSON Cast Tech Service: ? Author Type: Gold Marker Type: Progress Notes Filed: 02/13/2025 10:15 Note Text: Patient in today for scheduled appointment. Cast removed. Right leg cleansed with Cavilon. Examined by Dr. Mata. Fitted with a medium Short Pneumatic Walker for the right leg. Instructions on application, adjustments and care given. Will f/u as scheduled/prn. Beverly Dobson [facility]03-19-2025 History of Present illness Narrative* Beverly Dobson Cast Tech - 02/13/2025 10:14 AM EDT Patient in today for scheduled appointment. Cast removed. Right leg cleansed with Cavilon. Examinedby Dr. Mata. Fitted with a medium Short Pneumatic Walker for the right leg. Instructions on application, adjustments and care given. Will f/u as scheduled/prn. HAYES Johnson documented in this encounterCincinnati [facility]rin[facility] Hospital03-19-2025 NoteHNO ID: [id number] Author: SEAN MATA DPM Service: ? Author Type: Physician Type: Progress Notes Filed: 02/13/2025 10:05 Note Text: PRIMARY SERVICE: [facility] SUBJECTIVE: Patient is seen today for [...] up to 10 days. - DEXCOM G7 SHEET ROCK APPLIER misc as directed. - DEXCOM G7 SENSOR [...] of the patient's chart. [facility] History of Present illness Narrative* Sean Mata DPM - 02/13/2025 9:44 AM EDT PRIMARY SERVICE: [facility] SUBJECTIVE: Patient is seen today for [...] needed for up to 10days. 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 DEXCOM G7 SENSOR eduin [...] chart. Sean Mata DPM documented in this encounterCincinnati [facility]riners Hospital03-19-2025 NoteHNO ID: [id number] Author: MAURA SHELL RT(R) Service: ? Author [...] PATIENT PRESENTS WITH AN IMPLANTABLE OR ATTACHED AUTOMATIC THREAD WINDER: No RADIOLOGY DEPARTMENT: General X-ray: Exam(s) Completed: Lower Extremity X-Ray(s): Foot, Right PERIPHERAL IV DATA: Not applicable SIGNED BY: RT Rickie(R) February 13, 2025 9:23 [facility]03-19-2025 History of Present illness Narrative* Maura [...] PATIENT PRESENTS WITH AN IMPLANTABLE OR ATTACHED AUTOMATIC THREAD WINDER: No RADIOLOGY DEPARTMENT: General X-ray: Exam(s) Completed: Lower Extremity X- Ray(s): Foot, Right PERIPHERAL IV DATA: Not applicable SIGNED BY: RT Rickie(R) February 13, 2025 9:23 AM documented in this encounterCincinnati [facility]rin[facility] Hospital02-26-2025 Note* Addendum Note - Natalia Barrios CT - 01/23/2025 12:18 PM ESTAddended by: NATALIA BARRIOS on: 01/23/2025 12:18 PM Modules accepted: Orders [facility]02-26-2025 Miscellaneous Notes* Addendum Note - Natalia Barrios CT - 01/23/2025 12:18 PM ESTAddended by: NATALIA BARRIOS on: 01/23/2025 12:18 PM Modules accepted: Orders documented in this encounterCincinnati Shrin[facility] Hospital02-26-2025 NoteHNO ID: [id number] Author: BEVERLY DOBSON Cast Tech Service: ? Author Type: Gold Marker Type: Progress Notes Filed: 01/23/2025 11:52 Note Text: Patient in today for scheduled appointment. Cast removed. Right leg cleansed with sea-clens. Examined by Dr. Mata. Applied A Short Leg Nonweightbearing Cast to the right leg. Instructions on cast care given. Will f/u as scheduled/prn. Beverly Dobson [facility]02-26-2025 History of Present illness Narrative* Beverly Dobson Cast Tech - 01/23/2025 11:51 AM EST Patient in today for scheduled appointment. Cast removed. Right leg cleansed with sea-clens. Examined by Dr. Mata. Applied A Short Leg Nonweightbearing Cast to the right leg. Instructions on cast care given. Will f/u as scheduled/prn. AHYES Johnson documented in this encounterCincinnati [facility]02-26-2025 NoteHNO ID: [id number] Author: SEAN MATA DPM Service: ? Author Type: Physician Type: Progress Notes Filed: 01/23/2025 11:47 Note Text: PRIMARY SERVICE: [facility] SUBJECTIVE: Patient is seen today for [...] for up to 10 days. 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 DEXCOM G7 SENSOR eduin [...] refer to physical therapy. SIGNATURE: Sean Mata [facility]02-26-2025 History of Present illness Narrative* Sean Mata, SHITAL - 01/23/2025 10:56 AM EST PRIMARY SERVICE: [facility] SUBJECTIVE: Patient is seen today for [...] needed for up to 10days. 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 DEXCOM G7 SENSOR eduin [...] SIGNATURE: Sean Mata DPM documented in this encounterC[facility]25 NoteHNO ID: [id number] Author: SHAYLEE CONCEPCION MA Service: ? Author Type: Instrument Setter Type: Progress Notes Filed: 01/09/2025 11:22 Note [...] will follow up as scheduled or as needed.[facility]02-12-2025 History of Present illness Narrative* Shaylee Concepcion [...] scheduled or as needed. documented in this encounterCincinnati Shrin[facility]02-12-2025 NoteHNO ID: [id number] Author: SEAN MATA DPM Service: ? Author Type: Physician Type: Progress Notes Filed: 01/09/2025 10:55 Note Text: PRIMARY SERVICE: [facility] SUBJECTIVE: Patient is seen today for [...] for up to 10 days. 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 DEXCOM G7 SENSOR eduin [...] of SERVICE: 01/09/2025 TIME of SERVICE: 10:52 [facility]02-12-2025 History of Present illness Narrative* Sean Mata DPM - 01/09/2025 10:52 AM EST Images from the original note were not included. PRIMARY SERVICE: [facility] SUBJECTIVE: Patient is seen today for [...] needed for up to 10days. 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 DEXCOM G7 SENSOR eduin [...] of SERVICE: 10:52 AM documented in this encounterCincinnati [facility]02-05-2025 Telephone encounter Note * Telephone Encounter - Sean Mata DPM - 01/02/2025 12:36 PM EST Called patient at [phone] to return call regarding pain management. I spoke with the patient. Advised I sent a prescription over for her electronically for Toradol 10 mg tablets take 2 right away the 1 every 6 hours with food until gone in addition to the Percocet and the Phenergan. Recommend 2 Percocet every 4-6 hours due to her BMI. Sean Mata DPM [facility]02-05-[facility]25 Miscellaneous Notes* Telephone Encounter - Sean Mata DPM - 01/02/2025 12:36 PM EST Called patient at [phone] to return call regarding pain management. I spoke with the patient. Advised I sent a prescription over for her electronically for Toradol 10 mg tablets take 2 right away the 1 every 6 hours with food until gone in addition to the Percocet and the Phenergan. Recommend 2 Percocet every 4-6 hours due to her BMI. Sean Mata DPM documented in this encounterCincinnati Shrin[facility]02-03-2025 Miscellaneous Notes* Telephone Encounter - Sean Mata DPM - 12/31/2024 8:26 PM EST Called patient at her Lonnie's cell number at [phone] to check on postop progress. Received voicemail. [...] calling: self Call patient at: at home [phone] (home) [phone] (cell) Was an appointment scheduled: No Closing statement: Results or non-symptom based questions: Thank you for [facility], your call will be returned within the next business day. Marva Almeida documented in this encounterCincinnati Shrin[facility]02-03-2025 Telephone encounter Note * Telephone Encounter - Sean Mata DPM - 12/31/2024 8:26 PM EST Called patient at her Lonnie's cell number at [phone] to check on postop progress. Received voicemail. Left message that I called. Called patient back at 8:41 PM to same number. Spoke with who said she was doing well without any significant pain or problems at this time. Advised to call if any questions or problems between now and her first scheduled postop visit on December. Sean Mata DPM [facility] Work Phone: [phone] Telephone encounter Note* Telephone Encounter - Karissa Raman MA - 12/31/2024 3:25 PM EST Message has been sent directly to Dr Mata's phone. [facility]02-03-[facility] Telephone encounter Note* Telephone Encounter - Marva [...] calling: self Call patient at: at home [phone] (home) [phone] (cell) Was an appointment scheduled: No Closing statement: Results or non-symptom based questions: Thank you for calling [facility], your call will be returned within the next business day. Marva Almeida [facility]02-03-2025 NoteHNO ID: [id number] Author: ESTELLA GIBBONS AA Service: Anesthesiology Author Type: Drier Tender Naphthalene Type: Anesthesia Procedure Notes Filed: 12/31/2024 09:57 [...] December 31, 2024 TIME: 9:57 AM CSN: [id number]. Mary'S [facility]02-03-2025 NoteHNO ID: [id number] Author: ESTELLA GIBBONS AA Service: Anesthesiology Author Type: Drier Tender Naphthalene Type: Anesthesia Procedure Notes Filed: 12/31/2024 08:20 [...] December 31, 2024 TIME: 8:18 AM CSN: [id number]. Mary'S Medical Center01-31-2025 History and physical note* Ary Rocha APRN.CNP - 12/28/2024 10:10 AM EST Images from the original note were not included. [facility] HISTORY AND PHYSICAL EXAMINATION SERVICE DATE: 12/28/2024 SERVICE TIME: 10:08 AM PRIMARY CARE PHYSICIAN: Monique Emmanuel CNP, SUPERVISOR TUMBLING AND ROLLING REASON FOR VISIT: Noel Paul is a [...] STOP-Bang Score: STOP-Bang Score: 0 (Awaiting CPAP) [id number] Score: Age: <65 Sex: female [id number] Score: ARISCAT Score: Age: <=50 Preoperative SpO2: [...] chart review and guidance on proceeding at [place]. Per Stephanie, patient may proceed as scheduled at [place] CONSULTS: Anesthesia Consult chart review The Following [...] AT BEDTIME NEEDED Taking Yes DEXCOM G7 SHEET ROCK APPLIER misc as directed. DEXCOM G7 SENSOR eduin [...] fevers. Neuro: No history of TIA's, stroke, GLASS SANDER BELT tumor, impaired sensorium, hemiplegia, paraplegia or quadraplegia. No neurological symptoms or problems. Respiratory: No history of current cough or dyspnea, or pneumonia in the past 6 weeks. No history of respiratory/pulmonary symptoms or problems. Cardiovascular: No history of HTN requiring medication, no history of angina, CHF, CT, cardiac surgery or stents. Denies rest pain, [...] Noel Paul DATE: 12/28/2024 TIME: 10:21 AM [facility]01-[facility] History and physical note* Ary Rocha APRN.CNP - 12/28/2024 10:10 AM EST Images from the original note were not included. [facility] HISTORY AND PHYSICAL EXAMINATION SERVICE DATE: 12/28/2024 SERVICE TIME: 10:08 AM PRIMARY CARE PHYSICIAN: Monique Emmanuel, SUPERVISOR TUMBLING AND ROLLING, SUPERVISOR TUMBLING AND ROLLING REASON FOR VISIT: Noel Paul is a [...] STOP-Bang Score: STOP-Bang Score: 0 (Awaiting CPAP) [id number] Score: Age: <65 Sex: female [id number] Score: ARISCAT Score: Age: <=50 Preoperative SpO2: [...] chart review and guidance on proceeding at [place]. Per Stephanie, patient may proceed as scheduled at [place] CONSULTS: Anesthesia Consult chart review The Following [...] AT BEDTIME NEEDED Taking Yes DEXCOM G7 SHEET ROCK APPLIER misc as directed. DEXCOM G7 SENSOR eduin [...] fevers. Neuro: No history of TIA's, stroke, GLASS SANDER BELT tumor, impaired sensorium, hemiplegia, paraplegia or quadraplegia. No neurological symptoms or problems. Respiratory: No history of current cough or dyspnea, or pneumonia in the past 6 weeks. No history of respiratory/pulmonary symptoms or problems. Cardiovascular: No history of HTN requiring medication, no history of angina, CHF, CT, cardiac surgery or stents. Denies rest pain, [...] 12/28/2024 TIME: 10:21 AM documented in this encounterCincinnati Shrin[facility] Hospital01-29-2025 Instructions* Patient Instructions* Ary Rocha APRN.CNP - 12/26/2024 7:49 AM EST Images from the original note were not included. [facility] PATIENT PREOPERATIVE INSTRUCTIONS Sean Mata,* has scheduled you for your procedure at this surgery center: [facility]: [phone] --[phone] [facility] [facility] [place] [address]. Please read below carefully for your personalized [...] office. If you are currently using a iqqm-oyj-txfh injectable or oral medication for diabetes or [...] Procedures: - YOU MUST HAVE A RESPONSIBLE RELATIONS COORDINATOR TAKE YOU HOME. A JUNIOR BRAND MANAGER OR HEEL PACKER CANNOT BE MADE A RESPONSIBLE RELATIONS COORDINATOR. - We recommend that a responsible person [...] Advance Directive, please fax a copy to [phone] or email to for it to be [...] your chart that day. 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 documented in this encounterCincinnati Shriners Hospital01-15-2025 NoteHNO ID: [id number] Author: SEAN MATA DPM Service: ? Author Type: Physician Type: Progress Notes Filed: 12/12/2024 10:46 Note Text: [facility] Department of Orthopedics [facility] Name: Noel Paul Date of [...] Current Outpatient Medications Medication Sig DEXCOM G7 SHEET ROCK APPLIER misc as directed. DEXCOM G7 SENSOR eduin [...] We will complete scheduling. [facility] History of Present illness Narrative* Sean Mata DPM - 12/12/2024 10:39 AM EST [facility] Department of Orthopedics [facility] Name: Noel Paul Date of [...] Current Outpatient Medications Medication Sig DEXCOM G7 SHEET ROCK APPLIER misc as directed. DEXCOM G7 SENSOR eduin [...] scheduling. Sean Mata DPM documented in this encounterCincinnati Shriners Hospital01-15-2025 NoteHNO ID: [id number] Author: JAMAL REYNOSO RT(Misha) Service: ? Author Type: Technologist Type: [...] PATIENT PRESENTS WITH AN IMPLANTABLE OR ATTACHED AUTOMATIC THREAD WINDER: No RADIOLOGY DEPARTMENT: General X-ray: Exam(s) Completed: Lower Extremity X-Ray(s): Foot, Right PERIPHERAL IV DATA: Not applicable SIGNED BY: RT Manju(R) December 12, 2024 9:29 [facility]01-15-2025 History of Present illness Narrative* Jamal Reynoso RT(Misha) - 12/12/2024 9:29 AM EST Radiology Service [...] PATIENT PRESENTS WITH AN IMPLANTABLE OR ATTACHED AUTOMATIC THREAD WINDER: No RADIOLOGY DEPARTMENT: General X-ray: Exam(s) Completed: Lower Extremity X- Ray(s): Foot, Right PERIPHERAL IV DATA: Not applicable SIGNED BY: RT Manju(Misha) December 12, 2024 9:29 AM documented in this encounterCincinnati Shriners Hospital12-30-2024 NoteOrthopedic Surgery Subjective Pain of the Right [...] today as a referral from her previous water treatment technician for assistance with continued pain over the [...] from me. Matthias Her MD Orthopedic Surgery, Manager Sterile Processing [facility] 11/26/2024[facility]11-27-2024 History of Present illness Narrative* Pato Avelar DPM - 10/24/2024 2:40 PM EST Patient: Noel [...] today for follow-up of MRI results at [facility]. Allergies: Allergies Allergen Reactions Sulfa Antibiotics [...] stress reaction. ASSESSMENT 49 days s/p modified [facility] right foot 1. Stress fracture of right foot, initial encounter 2. Type 2 diabetes mellitus without complication, unspecified whether usp insulin use ([facility]) 3. Accessory navicular bone of right [...] need more invasive surgery. Will refer to [facility] Dr. [place] for referral and consultation at tertiary care center secondary to more advanced type procedure may be necessary. Will refer for consultation and possible further intervention Pato Avelar DPM documented in this encounterThree Rivers [id number] History of Present illness Narrative* Pato Avelar [...] History: Past Medical History: Diagnosis Date Diabetes ([facility]) Ear problems GERD (gastroesophageal reflux disease) [...] right Pato Avelar DPM documented in this encounterThree Rivers [id number] History of Present illness Narrative* Pato Avelar [...] diagnosis. Pato Avelar DPM documented in this encounterThree Rivers HealthcareUnpuyxfkew74-35-3126 Telephone encounter Note* Telephone Encounter - Pato Avelar DPM - 09/07/2024 8:26 AM EDT Has been called for possible increase in pain medication and will switch from hydrocodone to oxycodone and sent to [facility] and Ritika [facility] [id number] Miscellaneous Notes* Telephone Encounter - Pato Avelar DPM - 09/07/2024 8:26 AM EDT Has been called for possible increase in pain medication and will switch from hydrocodone to oxycodone and sent to [facility] and Ritika documented in this encounterThree Rivers [id number] History of Present illness Narrative* Pato Avelar [...] History: Past Medical History: Diagnosis Date Diabetes ([facility]) Ear problems GERD (gastroesophageal reflux disease) [...] cool tibia to toes b/l NEURO: 5.07 Madison Deyanira monofilament test positive to digits and [...] diabetes mellitus without complication, 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 supervisor insulin use ([facility]) 3. Heel spur, left 4. Plantar [...] alternatives, benefits, post op complications and terminal supervisor expectations were discussed including but not limited to: infection,bone infection,wound dehiscence hardware failure and irritation,wound dehiscence,delay union/mal union/non union of bone. RSDS,neuroma,duty limitations,DVT/PE, CT,nerve damage, scar, loss of sensation, swelling. Pt [...] 2024 Pato Avelar DPM documented in this encounterThree Rivers HealthcareXcxmbsufpq18-59-7078 History of Present illness Narrative* Pato Avelar [...] History: Past Medical History: Diagnosis Date Diabetes ([facility]) Ear problems GERD (gastroesophageal reflux disease) [...] diabetes mellitus without complication, 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 supervisor insulin use ([facility]) PLAN Patient to continue with oral [...] Patient may continue with conservative treatments including vcrx-fjb-rvmnyve anti- inflammatories and other treatments suggested today. Patient may want to be s cheduled for surgical intervention in the near future. Patient had a right modified Kidner procedure to the right foot with removal of accessory navicular with postoperative pain medicine of [place] and will see family Lien for preop clearance. This condition is unrelated to prior condition Pato Avelar DPM documented in this encounterThree Rivers HealthcareFkxszeqaxx41-73-5003 Telephone encounter Note* Telephone Encounter - GIOVANI MURRY - 07/31/2024 12:54 PM EDT Pt called back, would like scanned at next appt [facility] [id number] Miscellaneous Notes* Telephone Encounter - GIOVANI MURRY - 07/31/2024 12:54 PM EDT Pt called back, would like scanned at next appt * Telephone Encounter - GIOVANI MURRY - 07/31/2024 12:42 PM EDT Left vm to go over benefits * Telephone Encounter - Marti Murry MA - 07/27/2024 10:44 AM EDT Per call to Elda CHILDRESS @ [phone] with Denise Marroquin - I verified the policy is current and active with an effective date of 11/28/2020. L3020 is covered at 100% as both the ded and oop have been met. There are no frequency limits, no exclusions, and no prior authorizations needed. Ref#: [id number]. * Telephone Encounter - Pato Avelar DPM - 07/19/2024 4:56 PM EDT Please precertify for custom orthotics for the diagnosis of Posterior tibial tendinitis bilaterally documented in this encounterThree Rivers [id number] Telephone encounter Note* Telephone Encounter - GIOVANI MURRY - 07/31/2024 12:42 PM EDT Left vm to go over benefits [facility] HealthcareVrshufqivn19-85-2955 Telephone encounter Note* Telephone Encounter - Marti Murry MA - 07/27/2024 10:44 AM EDT Per call to Elda CHILDRESS @ [phone] with Denise Marroquin, - I verified the policy is current and active with an effective date of 11/28/2020. L3020 is covered at 100% as both the ded and oop have been met. There are no frequency limits, no exclusions, and no prior authorizations needed. Ref#: [id number]. [facility] HealthcareCpsmdypbij03-10-0795 History of Present illness Narrative* Jaime Woods DO - 07/24/2024 3:30 PM EDT Subjective [...] the next 7-10 days. Patient will use avsc-rux-zddhyju ibuprofen 3 times a day with food to help decrease inflammation. The patient may also benefit from a mouth guard. We will consider referral to Dr. Adali SALAZAR if there is no improvement documented in this encounterThree Rivers HealthcareCqruufhgio21-79-0520 Telephone encounter Note* Telephone Encounter - Pato Avelar DPM - 07/19/2024 4:56 PM EDT Please precertify for custom orthotics for the diagnosis of Posterior tibial tendinitis bilaterally [facility] [id number] History of Present illness Narrative* Pato Avelar DPM - 07/19/2024 4:10 PM EDT Patient: Noel Paul : 1990 PCP: Noms Provider MD Milad SUBJECTIVE This is a [...] History: Past Medical History: Diagnosis Date Diabetes ([facility]) Medications: Current Outpatient Medications: cholecalciferol (Vitamin [...] 2 diabetes mellitus without complication, unspecified whether usp insulin use ([facility]) 3. Accessory navicular bone of right [...] treatments Pato Avelar DPM documented in this encounterThree Rivers HealthcareEqcthjaxgb05-68-3876 Evaluation note* Encounter Date Diagnosis Assessment Notes [...] no improvement in 5 to 7 days. Original Other Evaluation + Plan note Future Appointments Appointment Date:05/09/2024 07:30:00 AM Scheduled Provider: Location[facility] assessment information available [facility] Work Phone: Evaluation note* Diagnosis 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 Type 2 diabetes mellitus without complication, 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 supervisor insulin use (CMS/HCC) Heel spur, left Plantar fasciitis Plantar fascial fibromatosis Contracture of left ankle Contracture of right ankle [facility]* Diagnosis 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 documented in this encounter [facility]* Diagnosis 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 Contracture of right ankle Type 2 diabetes mellitus without complication, 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 supervisor insulin use (CMS/HCC) documented in this encounter [facility]* Diagnosis 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 Contracture of right ankle documented in this encounter [facility]* Diagnosis 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 Contracture of right ankle Stress fracture of right foot, initial encounter documented in this encounter [facility]* Diagnosis Stress fracture of right foot, initial encounter- Primary Type 2 diabetes mellitus without complication, 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 supervisor insulin use (CMS/HCC) Accessory navicular bone of right foot documented in this encounter [facility]* Diagnosis Posterior tibial tendonitis of right leg- Primary Accessory navicular bone of left foot Type 2 diabetes mellitus without complication, 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 supervisor insulin use (CMS/HCC) Accessory navicular bone of right foot documented in this encounter [facility]* Diagnosis Arthralgia of left temporomandibular joint- Primary Left ear pain Unspecified otalgia Chronic rhinitis Fullness in ear, left documented in this encounter [facility]* Diagnosis 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 Posterior tibial tendonitis of right leg Type 2 diabetes mellitus without complication, unspecified whether usp insulin use (CMS/HCC) documented in this encounter [facility]* Diagnosis Accessory navicular bone of left foot- Primary documented in this encounter [facility]* Diagnosis Pain in right foot- Primary Pain in limb Accessory navicular bone of right foot [facility] Diagnosis Pain Generalized pain documented [facility] this encounter [facility]* Diagnosis 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 documented in this encounter [facility]Eval[facility] [place] [facility]* Diagnosis Pre-op evaluation- Primary Preoperative examination, unspecified Gastroesophageal reflux disease, unspecified whether esophagitis present Diabetes mellitus without complication ([facility]) Type II or unspecified type diabetes mellitus without mention of complication, not stated as uncontrolled BMI 60.0-69.9, adult (HCC) Body Mass Index 60.0-69.9, adult AQUILES (obstructive sleep apnea) Obstructive sleep apnea (adult) (pediatric) Accessory navicular bone of right foot * Assessment & Plan Note - Ary Rocha APRN.SUPERVISOR TUMBLING AND ROLLING - 12/28/2024 10:06 AM ESTAssociated Problem(s): AQUILES (obstructive sleep apnea) Assessment: does not have CPAP yet * Assessment & Plan Note - Ary Rocha APRN.CNP - 12/28/2024 10:05 AM ESTAssociated Problem(s): BMI 60.0-69.9, adult (HCC) Assessment: diet and [...] up with PCP documented in this encounter [facility] note* Diagnosis Pain- Primary Generalized pain Pain Generalized pain Pre-op evaluation- Primary Preoperative examination, unspecified Gastroesophageal reflux disease, unspecified whether esophagitis present Diabetes mellitus without complication (HCC) Type II or unspecified type diabetes mellitus without mention of complication, not stated as uncontrolled BMI 60.0-69.9, adult ([facility]) Body Mass Index 60.0-69.9, adult AQUILES (obstructive sleep apnea) Obstructive sleep apnea (adult) (pediatric) documented in this encounter [facility] note* Diagnosis Pre-op evaluation- Primary Preoperative [...] of right foot documented in this encounter [facility] note* Diagnosis Pre-op evaluation- Primary Preoperative examination, unspecified Gastroesophageal reflux disease, unspecified whether esophagitis present Diabetes mellitus without complication (HCC) Type II or unspecified type diabetes mellitus without mention of complication, not stated as uncontrolled BMI 60.0-69.9, adult ([facility]) Body Mass Index 60.0-69.9, adult AQUILES (obstructive sleep apnea) Obstructive sleep apnea (adult) (pediatric) S/P foot surgery, right- Primary documented in this encounter [facility] note* Diagnosis Pre-op evaluation- Primary Preoperative examination, unspecified Gastroesophageal reflux disease, unspecified whether esophagitis present Diabetes mellitus without complication (HCC) Type II or unspecified type diabetes mellitus without mention of complication, not stated as uncontrolled BMI 60.0-69.9, adult ([facility]) Body Mass Index 60.0-69.9, adult AQUILES (obstructive sleep apnea) Obstructive sleep apnea (adult) (pediatric) S/P foot surgery, right- Primary Accessory navicular bone of right foot documented in this encounter [facility] note* Diagnosis Pre-op evaluation- Primary Preoperative examination, unspecified Gastroesophageal reflux disease, unspecified whether esophagitis present Diabetes mellitus without complication (HCC) Type II or unspecified type diabetes mellitus without mention of complication, not stated as uncontrolled BMI 60.0-69.9, adult ([facility]) Body Mass Index 60.0-69.9, adult AQUILES (obstructive sleep apnea) Obstructive sleep apnea (adult) (pediatric) S/P foot surgery, right- Primary documented in this encounter [facility] note* Diagnosis Pre-op evaluation- Primary Preoperative examination, unspecified Gastroesophageal reflux disease, unspecified whether esophagitis present Diabetes mellitus without complication (HCC) Type II or unspecified type diabetes mellitus without mention of complication, not stated as uncontrolled BMI 60.0-69.9, adult ([facility]) Body Mass Index 60.0-69.9, adult AQUILES (obstructive sleep apnea) Obstructive sleep apnea (adult) (pediatric) S/P foot surgery, right- Primary S/P foot surgery, right documented in this encounter [facility] note* Diagnosis Pre-op evaluation- Primary Preoperative examination, unspecified Gastroesophageal reflux disease, unspecified whether esophagitis present Diabetes mellitus without complication (HCC) Type II or unspecified type diabetes mellitus without mention of complication, not stated as uncontrolled BMI 60.0-69.9, adult (HCC) Body Mass Index 60.0-69.9, adult AQUILES (obstructive sleep apnea) Obstructive sleep apnea (adult) (pediatric) S/P foot surgery, right- Primary documented in this encounter [facility] note* Diagnosis Pre-op evaluation- Primary Preoperative examination, unspecified Gastroesophageal reflux disease, unspecified whether esophagitis present Diabetes mellitus without complication (HCC) Type II or unspecified type diabetes mellitus without mention of complication, not stated as uncontrolled BMI 60.0-69.9, adult ([facility]) Body Mass Index 60.0-69.9, adult AQUILES (obstructive sleep apnea) Obstructive sleep apnea (adult) (pediatric) S/P foot surgery, right documented in this encounter [facility] note* Diagnosis Capsulitis of metatarsophalangeal (MTP) joint of right foot- Primary documented in this encounter [facility] note* Diagnosis Pre-op evaluation- Primary Preoperative examination, unspecified Gastroesophageal reflux disease, unspecified whether esophagitis present Diabetes mellitus without complication (HCC) Type II or unspecified type diabetes mellitus without mention of complication, not stated as uncontrolled BMI 60.0-69.9, adult ([facility]) Body Mass Index 60.0-69.9, adult AQUILES (obstructive sleep apnea) Obstructive sleep apnea (adult) (pediatric) S/P foot surgery, right- Primary S/P foot surgery, right documented in this encounter [facility] note* Diagnosis Pre-op evaluation- Primary Preoperative examination, unspecified Gastroesophageal reflux disease, unspecified whether esophagitis present Diabetes mellitus without complication (HCC) Type II or unspecified type diabetes mellitus without mention of complication, not stated as uncontrolled BMI 60.0-69.9, adult ([facility]) Body Mass Index 60.0-69.9, adult AQUILES (obstructive sleep apnea) Obstructive sleep apnea (adult) (pediatric) S/P foot surgery, right documented in this encounter [facility] note* Diagnosis Capsulitis of metatarsophalangeal (MTP) joint of right foot- Primary Type 2 diabetes mellitus without complication, 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 supervisor insulin use documented in this encounter [facility] note* Diagnosis Pre-op evaluation- Primary Preoperative examination, unspecified Gastroesophageal reflux disease, unspecified whether esophagitis present Diabetes mellitus without complication (HCC) Type II or unspecified type diabetes mellitus without mention of complication, not stated as uncontrolled BMI 60.0-69.9, adult (HCC) Body Mass Index 60.0-69.9, adult AQUILES (obstructive sleep apnea) Obstructive sleep apnea (adult) (pediatric) Sinus tarsitis, right- Primary documented in this encounter [facility] note* Diagnosis Pre-op evaluation- Primary Preoperative [...] of right ankle documented in this encounter [facility] note* Diagnosis Pre-op evaluation- Primary Preoperative examination, unspecified Gastroesophageal reflux disease, unspecified whether esophagitis present Diabetes mellitus without complication (HCC) Type II or unspecified type diabetes mellitus without mention of complication, not stated as uncontrolled BMI 60.0-69.9, adult ([facility]) Body Mass Index 60.0-69.9, adult AQUILES (obstructive sleep apnea) Obstructive sleep apnea (adult) (pediatric) Chronic pain of right ankle documented in this encounter [facility] note* Diagnosis Pre-op evaluation- Primary Preoperative examination, unspecified Gastroesophageal reflux disease, unspecified whether esophagitis present Diabetes mellitus without complication (HCC) Type II or unspecified type diabetes mellitus without mention of complication, not stated as uncontrolled BMI 60.0-69.9, adult ([facility]) Body Mass Index 60.0-69.9, adult AQUILES (obstructive sleep apnea) Obstructive sleep apnea (adult) (pediatric) S/P foot surgery, right- Primary Chronic pain of right ankle documented in this encounter [facility] note* Diagnosis Capsulitis of metatarsophalangeal (MTP) joint of right foot- Primary Contracture of right ankle Posterior tibial tendonitis of right leg [facility] - Reported* Type Description Date Medical History Acquired hypothyroidism Medical History vitamin D deficiency Surgical History cholecystectomy Hospitalization History No Hospitalization [employer] Other History of Present illness Narrative* Pato [...] History: Past Medical History: Diagnosis Date Diabetes ([facility]) Ear problems GERD (gastroesophageal reflux disease) [...] diabetes mellitus without complication, 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 supervisor insulin use ([facility]) PLAN Patient to keep dry sterile [...] patient Pato Avelar DPM [facility] Narrative * Pato Avelar DPM - 09/05/2025 10:40 AM EDT Patient: Noel Paul : 1990 PCP: Erich Garcia MD SUBJECTIVE This is a 35 y.o. female that presents today s/p right revisional modified Kidner right foot by Dr Mata at [facility]. Pt denies n/f/v/c and has negative pain to post op site. Patient had previous right EDL tendinitis with physical therapy and orthotics and states positive improvement Patient now presents today with pain to the right mid arch up to the medial aspect of her right ankle and has had this since her prior surgery. She had previous MRI which ruled out any posterior tibial tendon tear at that time but had surgical intervention in the past and continues has pain along the posterior tibial tendon of the right ankle and rates pain up to 5/10 Patient of large body habitus Allergies: Allergies Allergen Reactions Sulfa Antibiotics Rash and Hives Past Medical History: Past Medical History: Diagnosis Date Diabetes ([facility]) Ear problems GERD (gastroesophageal reflux disease) [...] ROS: General: denies fever, chills, fatigue, malaise GI: denies abdominal pain or ulcerations with anti-inflammatory medication OBJECTIVE LE EXAM: Derm: Skin intact to [...] of the navicular and 1st cuneiform region diminished pain on palpation to right EDL tendon complex along the 4th metatarsal and with extension of digits Positive palpation along right medial instep of foot along posterior tibial tendon and tracks to the medial malleolar region and slightly proximally with plain with resistance of the posterior tibialtendon right ASSESSMENT s/p modified Kidner right foot with revision 1. Capsulitis of metatarsophalangeal (MTP) joint of right foot 2. Contracture of right ankle 3. Posterior tibial tendonitis of right leg PLAN Prescription today for Medrol pack Patient is to receive a Morton style brace AFO to the right foot and ankle. Patient is to apply toankle and foot and wear daily to increase activities of daily living including walking and work related activities while weight-bearing. Patient is to have AFO for life time and may need further braces in future every 5 years. Prescription for device given to patient today. Patient to continue with oral anti - inflammatories as needed for pain and recommended OTC medications such as tylenol or Ibuprofen Pato Avelar DPM documented in this [facility] course Narrative No data available for this section [facility] No data available for this section [facility] Discharge instructions Additional Instructions DISCHARGE INSTRUCTIONS FOR [...] operative site FOLLOW UP Phone numbers: Office [phone] [ ][facility] Work Phone: Progress note No data available for this section [facility] Diagnostic Procedure Only (Routine) - Closed Specialty Diagnoses / Procedures Referred By Contac t Referred To Contact XR IMAGING Diagnoses Pain Procedures XR FOOT GENERAL 3V AP/LAT/OBL RIGHT RADEX FOOT COMPLETE MINIMUM 3 VIEWS Sean Mata DPM [address] [place] [address] [place] [address] Referral ID Status Reason Start Date Expiration Date V isits Requested Visits Authorized [id number] Closed Auto-Generate d Referral 12/05/2024 01/04/2026 1 1 [facility] for referral (narrative)* Diagnostic Procedure Only (Routine) - Closed Specialty Diagnoses / Procedures Referred By Contac t Referred To Contact XR IMAGING Diagnoses Pain Procedures XR FOOT GENERAL 3V AP/LAT/OBL RIGHT RADEX FOOT COMPLETE MINIMUM 3 VIEWS Sean Mata DPM [address] [place] [address] [place] [address] Referral ID Status Reason Start Date Expiration Date V isits Requested Visits Authorized [id number] Closed Auto-Generate d Referral 12/05/2024 01/04/2026 1 1 [facility] for referral (narrative)No reason for referral information [facility] Work Phone: [facility] Narrative* Diagnostic Procedure Only (Routine) - Closed Specialty Diagnoses / Procedures Referred By Contac t Referred To Contact XR IMAGING Diagnoses Pain Procedures XR FOOT GENERAL 3V AP/LAT/OBL RIGHT RADEX FOOT COMPLETE MINIMUM 3 VIEWS Sean Mata DPM [address] [place] [address] [place] [address] Referral ID Status Reason Start Date Expiration Date V isits Requested Visits Authorized [id number] Closed Auto-Generate d Referral 12/05/2024 01/04/2026 1 1 [facility] for visit Narrative* Diagnostic Procedure Only (Routine) - Closed Specialty Diagnoses / Procedures Referred By Contac t Referred To Contact XR IMAGING Diagnoses S/P foot surgery, right Procedures XR FOOT GENERAL 3V AP/LAT/OBL RIGHT RADEX FOOT COMPLETE MINIMUM 3 VIEWS Sean Mata, SHITAL [address] [place] [address] Phone: tel: fax: [place] [address] Referral ID Status Reason Start Date Expiration Date V isits Requested Visits Authorized [id number] Closed Auto-Generate d Referral 02/06/2025 03/07/2026 1 1 [facility] for visit Narrative* Diagnostic Procedure Only (Routine) - Closed Specialty Diagnoses / Procedures Referred By Alex gamboa Referred To Contact XR IMAGING Diagnoses S/P foot surgery, right Procedures XR FOOT GENERAL 3V AP/LAT/OBL RIGHT RADEX FOOT COMPLETE MINIMUM 3 VIEWS Sean Mata, SHITAL [address] [place] [address] Phone: tel: fax: [place] [address] Referral ID Status Reason Start Date Expiration Date V isits Requested Visits Authorized [id number] Closed Auto-Generate d Referral 03/07/2025 04/06/2026 1 1 [facility] for visit Narrative* MRI/CT (Routine) - Closed Specialty Diagnoses / Procedures Referred By Alex gamboa Referred To Contact MR IMAGING Diagnoses Chronic pain of right ankle Procedures MRI ANKLE WO IVCON RIGHT MRI ANY JT LOWER EXTREM W/O CONTRAST MATRL Sean Mata, DPM [address] [place] [address] Phone: tel: fax: [place] [address] Referral ID Status Reason Start Date Expiration Date V isits Requested Visits Authorized [id number] Closed Auto-Generate d Referral 05/22/2025 06/11/2025 1 1 [facility] Summary Purpose Family History No Family [...] Referred By Alex t Referred To Contact Diagnoses Accessory navicular bone of right foot Pato Avelar, DPM [address] [place] [address] Referral ID Status Reason Start Date Expiration Date V isits Requested Visits Authorized [id number] Pending Review 09/07/2024 03/06/2025 1 1 Additional [...] Follow-up Rt edl Reason Comments Post Op Reason Comments Ankle Pain INFORMATION SOURCE (unrecogn ized section and content) DATE CREATED AUTHOR 05/06/2023 [facility] DATE CREATED AUTHOR AUTHOR'S ORGANIZ ATION 04/26/2024 [facility] DATE CREATED AUTHOR AUTHOR'S ORGANIZ ATION 07/01/2024 [facility] DATE CREATED AUTHOR AUTHOR'S ORGANIZ ATION 09/12/2024 [facility] DATE CREATED AUTHOR AUTHOR'S ORGANIZ ATION 09/13/2024 [facility] DATE CREATED AUTHOR AUTHOR'S ORGANIZ ATION 09/15/2024 [facility] DATE CREATED AUTHOR AUTHOR'S ORGANIZ ATION 12/09/2024 [facility] DATE CREATED AUTHOR AUTHOR'S ORGANIZ ATION 07/15/2025 [facility] DATE CREATED AUTHOR AUTHOR'S ORGANIZ ATION 09/05/2025 [facility] DATE CREATED AUTHOR AUTHOR'S ORGANIZ ATION 09/07/2025 [facility] EPIC Care Teams (unrecognized sec tion and content) Team Status: Active Member Role Status Dates Monique Emmanuel NP-C Primary Care Provider Active Team Status: Active [...] May 16, 2024 End: May 16, 2024 Jacquard Loom Weaver Relationship Specialty Start Date End Date Erich Garcia MD [address] [place] [phone] PCP - General Family Medicine 07/24/24 Monique Emmanuel MD [address] [place] [address] Referring Physician Family Medicine 03/29/24 Monique Emmanuel MD [address] [place] [address] Referring Physician Family Medicine 07/24/24 Jaime Woods DO [address] [place] [address] Otolaryngology 07/24/24 Jacquard Loom Weaver Relationship Specialty Start Date End Date Erich Garcia MD [address] [place] [phone] PCP - General Family Medicine 07/24/24 Monique Emmanuel MD [address] [place] [address] Referring Physician Family Medicine 03/29/24 Monique Emmanuel MD [address] [place] [address] Referring Physician Family Medicine 07/24/24 Jaime Woods DO [address] [place] [address] Otolaryngology 07/24/24 Jacquard Loom Weaver Relationship Specialty Start Date End Date Erich Garcia MD [address] [place] [phone] PCP - General Family Medicine 07/24/24 Monique Emmanuel MD [address] [place] [phone] Referring Physician Family Medicine 03/29/24 Monique Emmanuel MD [address] [place] [address] Referring Physician Family Medicine 07/24/24 Jaime Woods DO [address] [place] [address] Otolaryngology 07/24/24 Jacquard Loom Weaver Relationship Specialty Start Date End Date Erich Garcia MD [address] [place] [phone] PCP - General Family Medicine 07/24/24 Monique Emmanuel MD [address] [place] [address] Referring Physician Family Medicine 03/29/24 Monique Emmanuel MD [address] [place] [address] Referring Physician Family Medicine 07/24/24 Jaime Woods DO [address] [place] [address] Otolaryngology 07/24/24 Jacquard Loom Weaver Relationship Specialty Start Date End Date Erich Garcia MD [address] [place] [address] [place] [phone] PCP - General Family Medicine 07/24/24 Monique Emmanuel MD [address] [place] [address] Referring Physician Family Medicine 03/29/24 Monique Emmanuel MD [address] [place] [address] Referring Physician Family Medicine 07/24/24 Jaime Woods DO [address] [place] [address] Otolaryngology 07/24/24 Jacquard Loom Weaver Relationship Specialty Start Date End Date Erich Garcia MD [address] [place] [phone] PCP - General Family Medicine 07/24/24 Monique Emmanuel MD [address] [place] [address] Referring Physician Family Medicine 03/29/24 Monique Emmanuel MD [address] [place] [address] Referring Physician Family Medicine 07/24/24 Jaime Woods DO [address] [place] [address] Otolaryngology 07/24/24 Jacquard Loom Weaver Relationship Specialty Start Date End Date Erich Garcia MD [address] [place] [phone] PCP - General Family Medicine 07/24/24 Monique Emmanuel MD [address] [place] [address] Referring Physician Family Medicine 03/29/24 Monique Emmanuel MD [address] [place] [address] Referring Physician Family Medicine 07/24/24 Jaime Woods DO [address] [place] [address] Otolaryngology 07/24/24 Jacquard Loom Weaver Relationship Specialty Start Date End Date Erich Garcia MD [address] [place] [phone] PCP - General Family Medicine 07/24/24 Monique Emmanuel MD [address] [place] [address] Referring Physician Family Medicine 03/29/24 Monique Emmanuel MD [address] [place] [phone] Referring Physician Family Medicine 07/24/24 Jaime Woods DO [address] [place] [address] Otolaryngology 07/24/24 Jacquard Loom Weaver Relationship Specialty Start Date End Date Unallocated, Yashira Romeo MD [address] [place] [address] PCP - General Family Medicine 03/29/24 Monique Emmanuel MD [address] [place] [address] Referring Physician Family Medicine 03/29/24 Jacquard Loom Weaver Relationship Specialty Start Date End Date Erich Garcia MD [address] [place] [address] PCP - General Family Medicine 07/24/24 Monique Emmanuel MD [address] [place] [address] Referring Physician Family Medicine 03/29/24 Monique Emmanuel MD [address] [place] [address] Referring Physician Family Medicine 07/24/24 Jaime Woods DO [address] [place] [address] Otolaryngology 07/24/24 Jacquard Loom Weaver Relationship Specialty Start Date End Date Unallocated, Noms MD Ousmane [address] [place] [address] PCP - General Family Medicine 03/29/24 [place] [address] [place] [address] Referring Physician Family Medicine 03/29/24 Jacquard Loom Weaver Relationship Specialty Start Date End Date Erich Garcia MD [address] [place] [phone] PCP - General Family Medicine 07/24/24 Monique Emmanuel MD [address] [place] [address] Referring Physician Family Medicine 03/29/24 Monique Emmanuel MD [address] [place] [address] Referring Physician Family Medicine 07/24/24 Jaime Woods DO [address] [place] [address] Otolaryngology 07/24/24 Jacquard Loom Weaver Relationship Specialty Start Date End Date Erich Garcia MD [address] [place] [phone] PCP - General Family Medicine 07/24/24 Monique Emmanuel MD [address] [place] [address] Referring Physician Family Medicine 03/29/24 Monique Emmanuel MD [address] [place] [address] Referring Physician Family Medicine 07/24/24 Jaime Woods DO [address] [place] [address] Otolaryngology 07/24/24 Jacquard Loom Weaver Relationship Specialty Start Date End Date Erich Garcia MD [address] [place] [phone] PCP - General Family Medicine 07/24/24 Monique Emmanuel MD [address] [place] [address] Referring Physician Family Medicine 03/29/24 Monique Emmanuel MD [address] [place] [address] Referring Physician Family Medicine 07/24/24 Jaime Woods DO [address] [place] [address] Otolaryngology 07/24/24 Jacquard Loom Weaver Relationship Specialty Start Date End Date Unallocated, Noms MD Ousmane [address] [place] [address] PCP - General Family Medicine 03/29/24 07/23/24 Erich Garcia MD [address] [place] [phone] PCP - General Family Medicine 07/24/24 Monique Emmanuel MD [address] [place] [address] Referring Physician Family Medicine 03/29/24 Monique Emmanuel MD [address] [place] [address] Referring Physician Family Medicine 07/24/24 Jaime Woods DO [address] [place] [address] Otolaryngology 07/24/24 Jacquard Loom Weaver Relationship Specialty Start Date End Date Monique Emmanuel CNP [address] [place] [address] PCP - General Internal Medicine 12/17/24 Jacquard Loom Weaver Relationship Specialty Start Date End Date Monique Emmanuel CNP [address] [place] [address] PCP - General Internal Medicine 12/17/24 Jacquard Loom Weaver Relationship Specialty Start Date End Date Monique Emmanuel CNP [address] [place] [address] PCP - General Internal Medicine 12/17/24 Jacquard Loom Weaver Relationship Specialty Start Date End Date Monique Emmanuel CNP [address] [facility] [place] [address] PCP - General Internal Medicine 12/17/24 Jacquard Loom Weaver Relationship Specialty Start Date End Date Monique Emmanuel CNP [address] [place] [address] PCP - General Internal Medicine 12/17/24 Jacquard Loom Weaver Relationship Specialty Start Date End Date Monique Emmanuel CNP [address] [place] [address] PCP - General Internal Medicine 12/17/24 Jacquard Loom Weaver Relationship Specialty Start Date End Date Monique Emmanuel CNP [address] [place] [address] PCP - General Internal Medicine 12/17/24 Jacquard Loom Weaver Relationship Specialty Start Date End Date Monique Emmanuel CNP [address] [place] [address] PCP - General Internal Medicine 12/17/24 Team Status: Inactive Member Role Status Dates LORI Alvarez Primary Care Provider Active Start: February 05, 2025 End: February 05, 2025 Radha Kong APRN Attending Provider Active Start: February 05, 2025 End: February 05, 2025 Jacquard Loom Weaver Relationship Specialty Start Date End Date Monique Emmanuel CNP [address] [place] [address] PCP - General Internal Medicine 12/17/24 Jacquard Loom Weaver Relationship Specialty Start Date End Date Monique Emmanuel CNP [address] [place] [address] PCP - General Internal Medicine 12/17/24 Jacquard Loom Weaver Relationship Specialty Start Date End Date Monique Emmanuel CNP [address] [place] [address] PCP - General Internal Medicine 12/17/24 Jacquard Loom Weaver Relationship Specialty Start Date End Date Erich Garcia MD [address] [place] [address] PCP - General Family Medicine 07/24/24 Monique Emmanuel MD [address] [place] [address] Referring Physician Family Medicine 03/29/24 Monique Emmanuel MD [address] [place] [address] Referring Physician Family Medicine 07/24/24 Jaime Woods DO [address] [place] [address] Otolaryngology 07/24/24 Jacquard Loom Weaver Relationship Specialty Start Date End Date Erich Garcia MD [address] [place] [address] PCP - General Family Medicine 07/24/24 Monique Emmanuel MD [address] [place] [address] Referring Physician Family Medicine 03/29/24 Monique Emmanuel MD [address] [place] [address] Referring Physician Family Medicine 07/24/24 Jaime Woods DO [address] [place] [address] Otolaryngology 07/24/24 Jacquard Loom Weaver Relationship Specialty Start Date End Date Monique Emmanuel CNP [address] [place] [id number] PCP - General Internal Medicine 12/17/24 Jacquard Loom Weaver Relationship Specialty Start Date End Date Monique Emmanuel CNP [address] [place] [id number] PCP - General Internal Medicine 12/17/24 Jacquard Loom Weaver Relationship Specialty Start Date End Date Monique Emmanuel CNP [address] [place] [id number] PCP - General Internal Medicine 12/17/24 Jacquard Loom Weaver Relationship Specialty Start Date End Date Monique Emmanuel CNP [address] [place] [id number] PCP - General Internal Medicine 12/17/24 Jacquard Loom Weaver Relationship Specialty Start Date End Date Monique Emmanuel CNP [address] [place] [phone] PCP - General Internal Medicine 12/17/24 Jacquard Loom Weaver Relationship Specialty Start Date End Date Monique Emmanuel CNP [address] [place] [id number] PCP - General Internal Medicine 12/17/24 Jacquard Loom Weaver Relationship Specialty Start Date End Date Monique Emmanuel CNP [address] [place], [place] [address], [place] [address] PCP - General Internal Medicine 12/17/24 Team [...] or prosecute any alcohol or drug abuse patient.[facility] the event this information is protected by the Federal Confidentiality of Alcohol and Drug Abuse Patient Records regulations: The Federal rules restrict any use of the information to criminally investigate or prosecute any alcohol or drug abuse patient.[facility] HospitalIn the event this information is protected by the Federal Confidentiality of Alcohol and Drug Abuse Patient Records regulations: The Federal rules restrict any use of the information to criminally investigate or prosecute any alcohol or drug abuse patient.[facility]In the event this information is protected by the Federal Confidentiality of Alcohol and Drug Abuse Patient Records regulations: The Federal rules restrict any use of the information to criminally investigate or prosecute any alcohol or drug abuse patient.[facility] HospitalIn the event this information is protected by the Federal Confidentiality of Alcohol and Drug Abuse Patient Records regulations: The Federal rules restrict any use of the information to criminally investigate or prosecute any alcohol or drug abuse patient.[facility] HospitalIn the event this information is protected by the Federal Confidentiality of Alcohol and Drug Abuse Patient Records regulations: The Federal rules restrict any use of the information to criminally investigate or prosecute any alcohol or drug abuse patient.[facility] HospitalIn the event this information is protected by the Federal Confidentiality of Alcohol and Drug Abuse Patient Records regulations: The Federal rules restrict any use of the information to criminally investigate or prosecute any alcohol or drug abuse patient.[facility] HospitalIn the event this information is protected by the Federal Confidentiality of Alcohol and Drug Abuse Patient Records regulations: The Federal rules restrict any use of the information to criminally investigate or prosecute any alcohol or drug abuse patient.[facility] HospitalIn the event this information is protected by the Federal Confidentiality of Alcohol and Drug Abuse Patient Records regulations: The Federal rules restrict any use of the information to criminally investigate or prosecute any alcohol or drug abuse patient.[facility] HospitalIn the event this information is protected by the Federal Confidentiality of Alcohol and Drug Abuse Patient Records regulations: The Federal rules restrict any use of the information to criminally investigate or prosecute any alcohol or drug abuse patient.[facility] HospitalIn the event this information is protected by the Federal Confidentiality of Alcohol and Drug Abuse Patient Records regulations: The Federal rules restrict any use of the information to criminally investigate or prosecute any alcohol or drug abuse patient.[facility] HospitalIn the event this information is protected by the Federal Confidentiality of Alcohol and Drug Abuse Patient Records regulations: The Federal rules restrict any use of the information to criminally investigate or prosecute any alcohol or drug abuse patient.[facility] HospitalIn the event this information is protected by the Federal Confidentiality of Alcohol and Drug Abuse Patient Records regulations: The Federal rules restrict any use of the information to criminally investigate or prosecute any alcohol or drug abuse patient.[facility] HospitalIn the event this information is protected by the Federal Confidentiality of Alcohol and Drug Abuse Patient Records regulations: The Federal rules restrict any use of the information to criminally investigate or prosecute any alcohol or drug abuse patient.[facility] HospitalIn the event this information is protected by the Federal Confidentiality of Alcohol and Drug Abuse Patient Records regulations: The Federal rules restrict any use of the information to criminally investigate or prosecute any alcohol or drug abuse patient.[facility] HospitalIn the event this information is protected by the Federal Confidentiality of Alcohol and Drug Abuse Patient Records regulations: The Federal rules restrict any use of the information to criminally investigate or prosecute any alcohol or drug abuse patient.[facility] HospitalIn the event this information is protected by the Federal Confidentiality of Alcohol and Drug Abuse Patient Records regulations: The Federal rules restrict any use of the information to criminally investigate or prosecute any alcohol or drug abuse patient.[facility] HospitalIn the event this information is protected by the Federal Confidentiality of Alcohol and Drug Abuse Patient Records regulations: The Federal rules restrict any use of the information to criminally investigate or prosecute any alcohol or drug abuse patient.[facility] HospitalIn the event this information is protected by the Federal Confidentiality of Alcohol and Drug Abuse Patient Records regulations: The Federal rules restrict any use of the information to criminally investigate or prosecute any alcohol or drug abuse patient.[facility] HospitalIn the event this information is protected by the Federal Confidentiality of Alcohol and Drug Abuse Patient Records regulations: The Federal rules restrict any use of the information to criminally investigate or prosecute any alcohol or drug abuse patient.[facility] HospitalIn the event this information is protected by the Federal Confidentiality of Alcohol and Drug Abuse Patient Records regulations: The Federal rules restrict any use of the information to criminally investigate or prosecute any alcohol or drug abuse patient.[facility] HospitalIn the event this information is protected by the Federal Confidentiality of Alcohol and Drug Abuse Patient Records regulations: The Federal rules restrict any use of the information to criminally investigate or prosecute any alcohol or drug abuse patient.[facility] HospitalIn the event this information is protected by the Federal Confidentiality of Alcohol and Drug Abuse Patient Records regulations: The Federal rules restrict any use of the information to criminally investigate or prosecute any alcohol or drug abuse patient.[facility] HospitalIn the event this information is protected by the Federal Confidentiality of Alcohol and Drug Abuse Patient Records regulations: The Federal rules restrict any use of the information to criminally investigate or prosecute any alcohol or drug abuse patient.[facility] HospitalIn the event this information is protected by the Federal Confidentiality of Alcohol and Drug Abuse Patient Records regulations: The Federal rules restrict any use of the information to criminally investigate or prosecute any alcohol or drug abuse patient.[facility] HospitalIn the event this information is protected by the Federal Confidentiality of Alcohol and Drug Abuse Patient Records regulations: The Federal rules restrict any use of the information to criminally investigate or prosecute any alcohol or drug abuse patient.[facility] HospitalIn the event this information is protected by the Federal Confidentiality of Alcohol and Drug Abuse Patient Records regulations: The Federal rules restrict any use of the information to criminally investigate or prosecute any alcohol or drug abuse patient.[facility] HospitalIn the event this information is protected by the Federal Confidentiality of Alcohol and Drug Abuse Patient Records regulations: The Federal rules restrict any use of the information to criminally investigate or prosecute any alcohol or drug abuse patient.[facility] HospitalIn the event this information is protected by the Federal Confidentiality of Alcohol and Drug Abuse Patient Records regulations: The Federal rules restrict any use of the information to criminally investigate or prosecute any alcohol or drug abuse patient.[facility] HospitalIn the event this information is protected by the Federal Confidentiality of Alcohol and Drug Abuse Patient Records regulations: The Federal rules restrict any use of the information to criminally investigate or prosecute any alcohol or drug abuse patient.[facility] FOR RECORDS PERTAINING TO PATIENTS WHO [...] BE BASED ON THE PRIMARY CLINICAL RECORDS. [facility]. provides no warranty or guarantee of the accuracy or completeness of information in this document.
--- NOTE | 2025-09-16 11:22 | XR_ITS ---
The [address] [address] Patient Name: NOEL ROCHE MRN: [id number] date: 1990 Sex: F Assigned Patient Location: [facility] Current Patient Location: [facility] Accession/Order Number: [id number] Exam Date: 09/16/2025 11:32 Report Date: 09/16/2025 14:34 At the request of: GUERRERO EMMANUEL Procedure: XR hip RT 2V w/ pelvis CLINICAL DATA: Right hip pain and burning for the past 2 months. No injury. LUMBAR SPINE - 3 views: COMPARISON: CT 03/05/2025 AP as well as lateral lumbar and lumbosacral views were obtained. There is no evidence of fracture. Alignment is maintained on the lateral view. The disc spaces are normal in height. There is no significant degenerative change. The sacroiliac joints are maintained. There are no paraspinal soft tissue abnormalities. XR/XR lumbar spine 2-3V IMPRESSION: NO ACUTE BONY FINDINGS. RIGHT HIP WITH AP PELVIS - 3 views COMPARISON: CT 03/05/2025 AP view of the pelvis as well as AP and frog-lateral views of the right hip were obtained. No fracture or dislocation is identified. The hip joint spaces are maintained. There is no significant arthritic disease. No soft tissue abnormalities are present. IMPRESSION: NO ACUTE BONY FINDINGS. Impression dictated by: Leisa Adames M.D. 09/16/2025 2:34 PM Dictation Location: [place] [address] Electronically authenticated by: [id number] Y Date: 09/16/2025 14:34
--- NOTE | 2025-09-16 11:22 | XR_ITS ---
The [address] [address] Patient Name: NOEL ROCHE MRN: [id number] date: 1990 Sex: F Assigned Patient Location: [facility] Current Patient Location: [facility] Accession/Order Number: [id number] Exam Date: 09/16/2025 11:32 Report Date: 09/16/2025 14:34 At the request of: GUERRERO EMMANUEL Procedure: XR hip RT 2V w/ pelvis CLINICAL DATA: Right hip pain and burning for the past 2 months. No injury. LUMBAR SPINE - 3 views: COMPARISON: CT 03/05/2025 AP as well as lateral lumbar and lumbosacral views were obtained. There is no evidence of fracture. Alignment is maintained on the lateral view. The disc spaces are normal in height. There is no significant degenerative change. The sacroiliac joints are maintained. There are no paraspinal soft tissue abnormalities. XR/XR hip RT 2V w/ pelvis IMPRESSION: NO ACUTE BONY FINDINGS. RIGHT HIP WITH AP PELVIS - 3 views COMPARISON: CT 03/05/2025 AP view of the pelvis as well as AP and frog-lateral views of the right hip were obtained. No fracture or dislocation is identified. The hip joint spaces are maintained. There is no significant arthritic disease. No soft tissue abnormalities are present. IMPRESSION: NO ACUTE BONY FINDINGS. Impression dictated by: Leisa Adames M.D. 09/16/2025 2:34 PM Dictation Location: [place] [address] Electronically authenticated by: [id number] Y Date: 09/16/2025 14:34
== END 2025-09-16 11:16 | disposition home or self-care (01) ==
LOC: RAD 11:17
PROVIDERS: PCP Nurse Practitioner Family; Visit Provider Nurse Practitioner Family
DX: M54.30 Sciatica, unspecified side (principal)
CPT/HCPCS: 72100; 73502

== ENCOUNTER 2025-10-01 08:38 | Outpatient (OUT) | payer BC, SELFPAY ==
--- OUTSIDE RECORDS SUMMARY | 2024-08-30 09:15 | XMS_ITS ---
Author Organization [facility] es Address [address] [place] [address] Care Team Providers Care Body Stylist Name Role Phone Erinjohnathan Reinaldo Primary Care Provider [phone] Lizzette Jones Unavailable Katrin Duran Unavailable [phone] REASON FOR VISIT PROPHY Encounters Encounter Location Date Provider Diagnosis [place] [address] [place] [address] 08/30/2024 Katrin Duran Plan Of Treatment Next Appt Details Provider Name:Tina Carrasco, 01/13/2026 08:30:00 AM, [address] [place], [address], Provider Name:Tina Carrasco, 01/20/2026 09:30:00 AM, [address] [place], [address], Provider Name:Ly Grace, 02/21/2026 08:30:00 AM, [address] [place], [address], Progress Notes * YEFRI ROCHE:1990 ([age] yo F)Acc No.[id number]:08/30/2024 Patient:?NOEL ROCHE :?Katrin Acosta:1990???Age:34 Y???Sex: FemaleDate:08/30/2024hone:[phone]:[address] [facility] [id number]:Reinaldo Burns Subjective: * Chief Complaints: * P ROPHY * Electronic signature of Katrin Duran on 10/01/2025 at 08:42 AM ESTSign off status: Pending * Provider: Rogers Chandler Date: Generated for Printing/Faxing/eTransmitting on:?10/01/2025 08:42 AM EST
--- OUTSIDE RECORDS SUMMARY | 2024-12-21 09:30 | XMS_ITS ---
Author Organization [facility] es Address [address] [place] [address] Care Team Providers Care Band Tacker Name Role Phone Josereinier Reinaldo Primary Care Provider Darin Jones Unavailable REASON FOR VISIT FILLING Encounters Encounter Location Date Provider Diagnosis [place] [address] [place] [address] 12/21/2024 Darin Montoya Plan Of Treatment Next Appt Details Provider Name:Tina Carrasco, 01/13/2026 08:30:00 AM, [address], [place], [address], Provider Name:Tina Carrasco, 01/20/2026 09:30:00 AM, [address], [place], [address], Provider Name:Ly Edwards, 02/21/2026 08:30:00 AM, [address], [place], [address], Progress Notes * HECTOR ROCHEB:1990 ([age] yo F)Acc No.[id number]:12/21/2024 Patient:?NOEL ROCHE :?DARIN MONTOYA DDSDOB:1990???Age: 34 Y???Sex:FemaleDate:12/21/2024Phone:[phone]:[address] [place] [address] RITIKA [place], [id number]:Reinaldo Burns Subjective: * Chief Complaints: * F ILLING Billing Information: * Procedure Codes: * Electronic signature of Darin Montoya DDS on 10/01/2025 at 08:44 AM ESTSign off status: Pending * Provider: Joseph MONTOYA DDS Date: 0 12/21/2024 Generated for Printing/Faxing/eTransmitting on:?10/01/2025 08:44 AM EST
--- OUTSIDE RECORDS SUMMARY | 2025-03-04 04:20 | XMS_ITS ---
Author Organization [facility] Address [address] [place] [address] Care Team Providers Care Ammonia Solution Preparer Name Role Phone Gaurav Snyder [facility] [phone] REASON FOR VISIT right shoulder recheck - dos 11/05 Encounters Encounter Location Date Provider Diagnosis [facility] [facility] [address] [facility] [place] [place] [address] 03/04/2025 Gaurav Snyder Plan Of Treatment No Information Progress Notes * IVAN ROCHEGABRIELB:1990 ([age] yo F)Acc No.[id number]:03/04/2025 Progress Notes Patient: NOEL PAZ :?FRANCESCO FaustOB:1990???Age:34 Y ???Sex:FemaleDate:03/04/2025Phone:[phone]:[address] [place], [place] [id number] Subjective: * Chief Complaints: * 1 . Right shoulder recheck - dos 11/05. * Medical History: Objective: * Vitals: Assessment: Plan: * Treatment: Forms: * Images: * Electronic signature of Gaurav Snyder MD on 10/01/2025 at 08:42 AM ESTSign off status: Pending * Provider: Spencer Snyder MD Date: 0 03/04/2025 Generated for Printing/Faxing/eTransmitting on:?10/01/2025 08:42 AM EST
--- OUTSIDE RECORDS SUMMARY | 2025-05-15 09:40 | XMS_ITS ---
Author Organization [facility] Address [address] [place] [address] Care Team Providers Care Drafter Geological Name Role Phone Erinjohnathan Reinaldo Primary Care Provider [phone] Lizzette Jones Unavailable Tina Carrasco Unavailable [phone] REASON FOR VISIT FILLING Encounters Encounter Location Date Provider Diagnosis [facility] [address] [place] [address] 05/15/2025 Tina Carrasco Plan Of Treatment Next Appt Details Provider Name:Tina Carrasco, 01/13/2026 08:30:00 AM, [address] [place], [address], Provider Name:Tina Carrasco, 01/20/2026 09:30:00 AM, [address] [place], [address], Provider Name:Ly Edwards, 02/21/2026 08:30:00 AM, [address], [address], Progress Notes * YEFRI ROCHE:1990 ([age] yo F)Acc No.[id number]:05/15/2025 Patient:?NOEL ROCHE :?Tina CarrascoDOB:1990???Age:34 Y???Sex: FemaleDate:05/15/2025Phone:[phone]:[address] [facility] [id number]:Reinaldo Burns Subjective: * Chief Complaints: * F ILLING * Electronic signature of Tina Carrasco DMD on 10/01/2025 at 08:44 AM ESTSign off status: Pending * Provider: Rogers Carrasco Date: 0 05/15/2025 Generated for Printing/Faxing/eTransmitting on:?10/01/2025 08:44 AM EST
--- OUTSIDE RECORDS SUMMARY | 2025-08-29 11:30 | XMS_ITS ---
Author Organization [facility] es Address [address] [place] [address] Care Team Providers Care Refining Still Operator Name Role Phone Tracey Burnselvin Primary Care Provider Lizzette Jones Unavailable [phone] Dr. Peter Ascencio Unavailable [phone] REASON FOR VISIT FILLING Encounters Encounter Location Date Provider Diagnosis [facility] [address] [place] [address] 2024 Peter Ascencio Plan Of Treatment Next Appt Details Provider Name:Tina Antoineadelina, 01/13/2026 08:30:00 AM, [address] [place], [address], Provider Name:Tina Antoineadelina, 01/20/2026 09:30:00 AM, [address], [place], [address], Provider Name:Ly Edwards, 02/21/2026 08:30:00 AM, [address] [place], [address], Progress Notes * YEFRI ROCHE:1990 ([age] yo F)Acc No.[id number]:08/29/2025 Patient:?NOEL ROCHE :?Peter Ascencio DDSDOB:1990???Age:35 Y???Sex: FemaleDate:08/29/2025Phone:[phone]:[address], [id number]:Reinaldo Burns Subjective: * Chief Complaints: * F ILLING * Electronic signature of Dr. Peter Ascencio , DMD, [id number] on 10/01/2025 at 08:44 AM ESTSign off status: Pending * Provider: Rogers Ascencio DDS Date: Generated for Printing/Faxing/eTransmitting on:?10/01/2025 08:44 AM EST
--- OUTSIDE RECORDS SUMMARY | 2025-08-30 11:30 | XMS_ITS ---
Author Organization [facility] Address [address] [place] [address] Care Team Providers Care Tripe Cooker Name Role Phone Grant Reinaldo Primary Care Provider [phone] Lizzette Jones Unavailable [phone] Dr. Peter Ascencio Unavailable [phone] REASON FOR VISIT FILLING Encounters Encounter Location Date Provider Diagnosis [facility] [address] [place] [address] 08/30/2025 Peter Ascencio Plan Of Treatment Next Appt Details Provider Name:Tina Antoineadelina, 01/13/2026 08:30:00 AM, [address] [place], [address], Provider Name:Tina Antoineadelina, 01/20/2026 09:30:00 AM, [address], [address], Provider Name:Ly Charlaprosper, 02/21/2026 08:30:00 AM, [address] [place], [address], Progress Notes * YEFRI ROCHE:1990 ([age] yo F)Acc No.[id number]:08/30/2025 Patient:?NOEL ROCHE :?Peter Ascencio DDSDOB:1990???Age:35 Y???Sex: FemaleDate:08/30/2025Phone:[phone]:[address], [id number]:Reinaldo Burns Subjective: * Chief Complaints: * F ILLING * Electronic signature of Dr. Peter Ascencio , DMD, [id number] on 10/01/2025 at 08:49 AM ESTSign off status: Pending * Provider: Rogers Ascencio DDS Date: Generated for Printing/Faxing/eTransmitting on:?10/01/2025 08:49 AM EST
--- OUTSIDE RECORDS SUMMARY | 2025-09-12 10:30 | XMS_ITS ---
Author Organization [facility] Address [address] [place] [address] Care Team Providers Care Chemicals Distiller Name Role Phone Erinjohnathan Reinaldo Primary Care Provider Lizzette Jones Unavailable Mey Duong Unavailable [phone] REASON FOR VISIT 6 MONTH BW EX Encounters Encounter Location Date Provider Diagnosis [facility] [address] [place] [address] 09/12/2025 Mey Duong Plan Of Treatment Next Appt Details Provider Name:Tina Carrasco, 01/13/2026 08:30:00 AM, [address] [place], [address], Provider Name:Tina Carrasco, 01/20/2026 09:30:00 AM, [place], [address], Provider Name:Ly Grace, 02/21/2026 08:30:00 AM, [facility] [place], [address], Progress Notes * YEFRI ROCHE:1990 ([age] yo F)Acc No.[id number]:09/12/2025 Patient:?NOEL ROCHE :?Mey DuongDOB:1990???Age:35 Y???Sex: FemaleDate:09/12/2025Phone:[phone]:[address] [facility] [id number]:Reinaldo Burns Subjective: * Chief Complaints: * 6 MONTH BW EX * Electronic signature of Meytia Duong on 10/01/2025 at 08:44 AM ESTSign off status: Pending * Provider: Magno Duong Date: 1 Generated for Printing/Faxing/eTransmitting on:?10/01/2025 08:44 AM EST
--- OUTSIDE RECORDS SUMMARY | 2025-10-01 08:43 | XMS_ITS | Patient Health Record ---
Author Organization [facility] Address [address] [address] Care Team Providers Care Scientific Diver Name Role Phone Grant Reinaldo Primary Care Provider Lizzette Jones Unavailable [phone] Dr. Peter Ascencio Unavailable [phone] Mey Duong Unavailable [phone] Tina Carrasco Unavailable [phone] Reason For Referral No Information Encounters Encounter Location Date Provider Diagnosis [facility] [address] [place] [address] 02/28/2025 Mey Duong Acute gingivitis, plaque induced K05.00 [address] [place] [address] 09/02/2025 Lizzette Paredes Dental caries on pit and fissure surface penetrating into dentin K02.52 [facility] [address] [place] [address] 09/17/2025 Tina Carrasco Dental caries on pit and fissure surface penetrating into dentin K02.52 Assessments Encounter Date Diagnosis (ICD Code) Assessment Notes Treatment Notes Treatment Clinical Notes Section Notes 02/28/2025 Acute gingivitis, plaque induced (ICD-10 - K05.00) 09/02/2025Dental caries on pit and fissure surface penetrating into dentin (ICD- 10 - K02.52)09/17/2025Dental caries on pit and fissure surface penetrating into dentin (ICD-10 - K02.52) Plan Of Treatment Next Appt Details Provider Name:Tina Carrasco, 01/13/2026 08:30:00 AM, [address], [place], [address], Provider Name:Tina Carrasco, 01/20/2026 09:30:00 AM, [address], [place], [address], Provider Name:Ly Edwards, 02/21/2026 08:30:00 AM, [address], [place], [address], Insurance Providers Payer Name Payer Address Payer Phone Subscriber Number Group Number Insured Name Patient Relationship to Insured Coverage Start Date Coverage End Date ANTHEM Primary [address] [place] [phone] [id number] NOEL ROCHE Self - patient is the insured 3 [employer] [address] [place] [id number] ROCHEuse - patient is the spouse of the [id number]
--- OUTSIDE RECORDS SUMMARY | 2025-10-01 08:44 | XMS_ITS | Patient Health Record ---
Author Organization [facility] in [place] Address [address] [place] [address] Care Team Providers Care Spoke Maker Name Role Phone Monique Emmanuel Primary Care Provider [phone] Mo Garcia [phone] Allergies Allergen (clinical drug ingredient) Drug/Non Drug Allergy documented on EMR Reaction Allergy Type Onset Date Status Substance with sulfonamide s tructure and antibacterial mechanism of action (substance) Sulfa Antibiotics rash/hives Drug Allergy Active Results Component Value Reference Range Notes XR lumbar spine 2-3V Reviewed date:09/18/2025 11:19:01 AM Interpretation: Performing Lab: Notes/Report: Source Facility: [place] [address] XRay Report Signed Patient: NOEL APUL MR#: [id number] : 1990 Acct:[id number] Age/Sex: 35 / F ADM Date: 09/16/25 Loc: RAD Attending Dr: MONIQUE EMMANUEL Ordering Physician: MONIQUE EMMANUEL Date of Service: 09/16/25 Procedure(s): XR lumbar spine 2-3V Accession Number(s): [id number] cc: MONIQUE EMMANUEL [place] [address] Patient Name: NOEL PAUL MRN: [id number] date: 1990 Sex: F Assigned Patient Location: RAD Current Patient Location: RAD Accession/Order Number: [id number] Exam Date: 09/16/2025 11:32 Report Date: 09/16/2025 14:34 At the request of: MONIQUE EMMANUEL Procedure: XR hip RT 2V w/ pelvis CLINICAL DATA: Right hip pain and burning for the past 2 months. No injury. LUMBAR SPINE - 3 views: COMPARISON: CT 03/05/2025 AP as well as lateral lumbar and lumbosacral views were obtained. There is no evidence of fracture. Alignment is maintained on the lateral view. The disc spaces are normal in height. There is no significant degenerative change. The sacroiliac joints are maintained. There are no paraspinal soft tissue abnormalities. XR/XR lumbar spine 2-3V IMPRESSION: NO ACUTE BONY FINDINGS. RIGHT HIP WITH AP PELVIS - 3 views COMPARISON: CT 03/05/2025 AP view of the pelvis as well as AP and frog-lateral views of the right hip were obtained. No fracture or dislocation is identified. The hip joint spaces are maintained. There is no significant arthritic disease. No soft tissue abnormalities are present. IMPRESSION: NO ACUTE BONY FINDINGS. Impression dictated by: Leisa Adames M.D. 09/16/2025 2:34 PM Dictation Location: [place] [address] Electronically authenticated by: [id number] Y Date: 09/16/2025 14:34 Dictated By: Leisa Adames M.D. Signed By: 09/16/25 1436 DD/ 1434 TD/TT: Campus Recruiting Intern: XR chest 2V Reviewed date:07/12/2025 09:29:39 AM Interpretation: Performing Lab: Notes/Report: Source Facility: [place] [address] [place] [address] XRay Report Signed Patient: NOEL PAUL MR#: [id number] : 1990 Acct:[id number] Age/Sex: 35 / F ADM Date: 07/11/25 Loc: ER Attending Dr: Ordering Physician: Cain Dee Date of Service: 07/12/25 Procedure(s): XR chest 2V Accession Number(s): [id number] cc: MONIQUE EMMANUEL ; Cain Dee [address] [address] Patient Name: NOEL PAUL MRN: [id number] date: 1990 Sex: F Assigned Patient Location: ER Current Patient Location: Accession/Order Number: [id number] Exam Date: 07/12/2025 08:40 Report Date: 07/12/2025 [...] STUDY. Impression dictated by: Peter White Jr., Aria 07/12/2025 8:42 AM Dictation Location: [place] [address] Electronically authenticated by: [id number] Y Date: 07/12/2025 08:42 Dictated By: Peter White M.D. Signed By: 07/12/25 0844 DD/ 0842 TD/TT: Campus Recruiting Intern: White Blood Cells Reviewed date:11/09/2024 03:15:37 PM Interpretation: Performing Lab: Notes/Report: [facility] , White Blood Cells See Below For Report White Blood Cells White Blood CellsMany White Blood Cells Performing Lab:see noteLC - [facility] LBEpithelial Cells Reviewed date:11/09/2024 03:15:37 PM Interpretation: Performing Lab: Notes/Report: [facility] ,Epithelial CellsSee Below For Report Epithelial Cells Few Performing Lab:see noteLC - [facility] LBResult 1 Reviewed date:11/09/2024 03:15:37 PM Interpretation: Performing Lab: Notes/Report: [facility] ,Result 1See Below For Report Result 1 Many gram positive cocci. Performing Lab:see noteLC - [facility] LBResult 2 Reviewed date:11/09/2024 03:15:38 PM Interpretation: Performing Lab: Notes/Report: [facility] ,Result 2See Below For Report Result 2 Few gram positive rods. Performing Lab:see noteLC - [facility] LBResult 3 Reviewed date:11/09/2024 03:15:38 PM Interpretation: Performing Lab: Notes/Report: [facility] ,Result 3See Below For Report Result 3 Few gram negative rods. Performing Lab:see noteLC - [facility] LBResult 4 Reviewed date:11/09/2024 03:15:38 PM Interpretation: Performing Lab: Notes/Report: [facility] ,Result 4See Below For Report Result 4 FINANCIAL ACCOUNTANT Performing Lab:see noteLC - [facility] LBGram Stain Evaluation Reviewed date:11/09/2024 03:15:38 PM Interpretation: Performing Lab: Notes/Report: [facility] ,Gram Stain EvaluationSee Below For Report Gram Stain Evaluation This specimen is of good quality and is acceptable for routine Gram Stain Evaluationbacterial culture. Gram Stain Evaluation This specimen is of good quality and is acceptable for routine Performing Lab:see noteLC - [facility] LBLower Respiratory Culture Reviewed date:11/09/2024 03:15:38 PM Interpretation: Performing Lab: Notes/Report: [facility] ,Lower Respiratory CultureSee Below For Report Lower Respiratory Culture WILL FOLLOW Lower Respiratory CultureRoutine respiratory scot Lower Respiratory Culture WILL FOLLOW Lower Respiratory CulturePerformed at: CB - [facility] [place] Lower Respiratory Culture WILL FOLLOW Lower Respiratory [address] [place], [place] [id number] Lower Respiratory Culture WILL FOLLOW Lower Respiratory CultureLab Director: Kevin Fuller PhD, Phone: [phone] Lower Respiratory Culture WILL FOLLOW Performing Lab:see note LC - [facility] LB SEE REPORT - Flame Planer Id information not found for OBX-specific education paraprofessional legend XR chest 1V Reviewed date:11/06/2024 03:02:08 PM Interpretation: Performing Lab: Notes/Report: Source Facility: [place] [address] [place] [address] XRay Report Signed Patient: NOEL PAUL MR#: [id number] : 1990 Acct:[id number] Age/Sex: 34 / F ADM Date: 11/05/24 Loc: MS 202-[address]: Shannon Garcia M.D. Ordering Physician: Shannon Garcia M.D. Date of Service: 11/05/24 Procedure(s): XR chest 1V Accession Number(s): [id number] cc: MONIQUE EMMANUEL ; Shannon Garcia M.D. The [place] [id number] Patient Name: NOEL PAUL MRN: [id number] date: 1990 Sex: F Assigned Patient Location: MS Current Patient Location: MS Accession/Order Number: [id number] Exam Date: 11/05/2024 19:25 Report Date: 11/05/2024 [...] M.D. Signed By: 11/05/242208 DD/ 06 TD/TT: Campus Recruiting Intern:Blood Culture 1 Reviewed date:11/26/2024 08:31:42 AM Interpretation: Performing Lab: Notes/Report: RIGHT AC IV START [facility] ,Blood Culture 1See Below For Report Blood Culture 1 NG5D NO GROWTH AT 5 DAYS. Performing Lab:see noteML - [facility] LBBlood Culture 2 Reviewed date:11/26/2024 08:31:42 AM Interpretation: Performing Lab: Notes/Report: LEFT AC [facility] ,Blood Culture 2See Below For Report Blood Culture 2 NG5D NO GROWTH AT 5 DAYS. Performing Lab:see noteML - [facility] LBCBC AUTO DIFF Reviewed date:11/26/2024 08:31:42 AM Interpretation: Performing Lab: Notes/Report: [facility] ,White Blood Count9.04.0-11.0 10 3/uLRed Blood Count4.684.20-5.40 10 6/uL Ayvfzwjoik36.812.0-16.0 g/yQRnvxzgvdld12.836.0-48.0 %Mean Corpuscular Wxcwia41.9 81.0-99.0 fLMean Corpuscular Asfdyisddz76.226.7-34.0 pgMean Corpuscular HGB Conc 30.429.9-35.2 g/dLRed Cell Distribution Width15.111.0-15.0 %Platelet Gknfu010 150-450 10 3/uLMean Platelet Volume9.69.5-13.5 fLNeutrophils Percent Auto62.6 43.0-75.0 %Lymphocytes Percent Auto27.220.5-60.0 %Monocytes Percent Auto5.71.7- 12.0 %Eosinophils Percent Auto3.20.9-7.0 %Basophils Percent Auto0.40.2-2.0 % Immature Granulocytes Pct Auto0.90.0-0.5 %Neutrophils Absolute Auto5.61.4-6.5 10 3/uLLymphocytes Absolute Auto2.51.2-3.8 10 3/uLMonocytes Absolute Auto0.50.3-0.8 10 3/uLEosinophils Absolute Auto0.30.0-0.7 10 3/uLBasophils Absolute Auto0.00.0- 0.1 10 3/uLImmature Granulocytes Abs Auto0.080.00-0.03 10 3/uLPerforming Lab:see noteML - [facility] LBPROF 14(COMP METB) Reviewed date:11/26/2024 08:31:42 AM Interpretation: Performing Lab: Notes/Report: [facility] ,Jkuqlr798545-571 mmol/LPotassium4.23.5-5.1 mmol/WPemgostp23642-910 mmol/LCarbon Ljaecmg88.821.0-32.0 mmol/LAnion Gap11.2Wmgmhho49853-442 mg/dLBlood Urea Mfwirkxw22.07.0-18.0 mg/dLCreatinine0.790.55-1.02 mg/dLEstimated GFR ( Rasheeda>60>=60 mL/min/1.73m 2Estimated GFR (Non- Yamel>60>=60 mL/min/1.73m 2BUN Creatinine Ratio20.7Rhascdy3.98.5-10.1 mg/dLBilirubin Total0.50.2-1.0 mg/dL Aspartate Amino Jomizbkmgnh4734-45 U/LAlanine Reydoyjmtrvwizfm7069-12 U/L Alkaline Mgqjnwhpnvp2226-399 U/LTotal Protein7.06.4-8.2 g/dLAlbumin Level2.93.4- 5.0 g/dLGlobulin4.1Albumin Globulin Ratio0.7Performing Lab:see noteML - [facility] LBCT soft tissue neck w con Reviewed date:11/26/2024 08:24:16 AM Interpretation: Performing Lab: Notes/Report: Source Facility: [facility]-[address] [place] [address] CT Scan Report Signed Patient: NOEL PAUL MR#: [id number] : 1990 Acct:[id number] Age/Sex: 34 / F ADM Date: 11/20/24 Loc: ER Attending Dr: Ordering Physician: Mickie Quijano D.O. Date of Service: 11/20/24 Procedure(s): CT soft tissue neck w con Accession Number(s): [id number] cc: MONIQUE EMMANUEL [place] [address] Patient Name: NOEL PAUL MRN: [id number] date: 1990 Sex: F Assigned Patient Location: ER Current Patient Location: ER Accession/Order Number: [id number] Exam Date: 11/20/2024 21:30 Report Date: 11/20/2024 [...] Pipo Gonzalez M.D. Signed By: 11/20/242331 DD/ 2330 TD/TT: Campus Recruiting Intern:XR chest 1V Reviewed date:07/12/2025 09:29:39 AM Interpretation: Performing Lab: Notes/Report: Source Facility: [place] [address] [address] [address] XRay Report Signed Patient: NOEL PAUL MR#: [id number] : 1990 Acct:[id number] Age/Sex: 35 / F ADM Date: 07/11/25 Loc: ER Attending Dr: Ordering Physician: Cain Dee Date of Service: 07/12/25 Procedure(s): XR chest 1V Accession Number(s): [id number] cc: MONIQUE EMMANUEL ; Cain Dee [place] [address] Patient Name: NOEL PAUL MRN: [id number] date: 1990 Sex: F Assigned Patient Location: ER Current Patient Location: Accession/Order Number: [id number] Exam Date: 07/12/2025 08:39 Report Date: 07/12/2025 [...] Jr., D.O. 07/12/2025 8:40 AM Dictation Location: [place] [address] Electronically authenticated by: [id number] Y Date: 07/12/2025 08:40 Dictated By: Peter White M.D. Signed By: 07/12/2543 DD/ 9 TD/TT: Campus Recruiting Intern:CBC AUTO DIFF Reviewed date:07/26/2025 10:20:28 AM Interpretation: Performing Lab: Notes/Report: [facility] ,White Blood Count14.34.0-11.0 10 3/uLRed Blood Count4.914.20-5.40 10 6/uL Qafycbsuup53.212.0-16.0 g/rTYahhgtrxtp17.036.0-48.0 %Mean Corpuscular Jldkpr56.5 81.0-99.0 fLMean Corpuscular Juhcgiadad26.826.7-34.0 pgMean Corpuscular HGB Conc 30.529.9-35.2 g/dLRed Cell Distribution Width15.411.0-15.0 %Platelet Lpras531 150-450 10 3/uLMean Platelet Volume9.39.5-13.5 fLNeutrophils Percent Auto76.6 43.0-75.0 %Lymphocytes Percent Auto15.020.5-60.0 %Monocytes Percent Auto4.91.7- 12.0 %Eosinophils Percent Auto2.70.9-7.0 %Basophils Percent Auto0.40.2-2.0 % Immature Granulocytes Pct Auto0.40.0-0.5 %Neutrophils Absolute Auto10.91.4-6.5 10 3/uLLymphocytes Absolute Auto2.11.2-3.8 10 3/uLMonocytes Absolute Auto0.70.3- 0.8 10 3/uLEosinophils Absolute Auto0.40.0-0.7 10 3/uLBasophils Absolute Auto0.1 0.0-0.1 10 3/uLImmature Granulocytes Abs Auto0.050.00-0.03 10 3/uLPerforming Lab:see noteML - [facility] LBPROF 14(COMP METB) Reviewed date:07/26/2025 10:20:28 AM Interpretation: Performing Lab: Notes/Report: [facility] ,Hhbdgn836314-826 mmol/LPotassium3.83.5-5.1 mmol/CKcdxsbtq94912-869 mmol/LCarbon Lyovfhf57.621.0-32.0 mmol/LAnion Gap14.7Wlilhvt6138-782 mg/dLBlood Urea Nitrogen 17.07.0-18.0 mg/dLCreatinine0.840.55-1.02 mg/dLEstimated GFR ( Rasheeda>60 >=60 mL/min/1.73m 2Estimated GFR (Non- Yamel>60>=60 mL/min/1.73m 2BUN Creatinine Ratio20.4Zyicybv1.08.5-10.1 mg/dLBilirubin Total0.80.2-1.0 mg/dL Aspartate Amino Fvqwbojbtdz9960-22 U/LAlanine Abhoutlyhisjzzcm5144-59 U/L Alkaline Pnggvguzerx8804-397 U/LTotal Protein8.36.4-8.2 g/dLAlbumin Level3.53.4- 5.0 g/dLGlobulin4.8Albumin Globulin Ratio0.7Performing Lab:see note - [facility] LBHCG Qualitative* Reviewed date:07/26/2025 10:20:28 AM Interpretation: Performing Lab: Notes/Report: [facility] ,[facility] QualitativeNEGATIVENEGATIVEPerforming Lab:see [facility] LBCT head/brain wo con Reviewed date:07/26/2025 10:20:28 AM Interpretation: Performing Lab: Notes/Report: Source Facility: [place] [address] CT Scan Report Signed Patient: NOEL PAUL MR#: [id number] : 1990 Acct:[id number] Age/Sex: 35 / F ADM Date: 07/25/25 Loc: ER Attending Dr: Ordering Physician: Margarita Vasquez Date of Service: 07/25/25 Procedure(s): CT head/brain wo con Accession Number(s): [id number] cc: MONIQUE EMMANUEL [place] [address] Patient Name: NOEL PAUL MRN: [id number] date: 1990 Sex: F Assigned Patient Location: ED.MAIN Current Patient Location: ED.MAIN Accession/Order Number: [id number] Exam Date: 07/25/2025 19:05 Report Date: 07/25/2025 [...] Wilks M.D. 07/25/2025 7:32 PM Dictation Location: [place] [address] Electronically authenticated by: [id number] Y Date: 07/25/2025 19:32 Dictated By: Fermín Wilks M.D. 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 Measurements Intervals [place] Rate: 81 P: 61 ID: [id number] QRS: 54 QRSD: 86 T: 37 QT: 346 QTc: 383 Interpretive Statements 1100 Sinus rhythm 9110 normal ECG Compared to ECG 10/26/2024 10:47:36 No significant changes Electronically Signed On 07-12-2025 20:49:34 EDT by PRADEEP ROLLINS M.D. Dictated By: PRADEEP ROLLINS Signed By: 07/12/252048 DD/ 45 TD/TT: Campus Recruiting Intern:Troponin I High Sensitivity Reviewed date:07/12/2025 09:29:39 AM Interpretation: Performing Lab: Notes/Report: [facility] ,Troponin I High Sensitivity4.44.0-51.3 pg/mL CUT-OFF POINTS HAVE BEEN ESTABLISHED BASED ON THE FOURTH UNIVERSAL DEFINITION OF MYOCARDIAL INFARCTION. THE UPPER REFERENCE LIMIT (URL) OF TROPONIN, DEFINED THE 99TH PERCENTILE OF cTnI DISTRIBUTION IN A REFERENCE POPULATION, HAS BEEN CONFIRMED THE DECISION THRESHOLD FOR [place] DIAGNOSIS. 99TH PERCENTILE = 51.4 PG/ML NOTE: HIGH-SENSITIVITY TROPONIN ASSAY IS NOT INTENDED TO BE USED IN ISOLATION BUT SHOULD BE INTERPRETED IN CONJUNCTION WITH OTHER DIAGNOSTIC AND CLINICAL INFORMATION. Performing Lab:see noteML - [facility] LBPROF 14(COMP METB) Reviewed date:07/12/2025 09:29:39 AM Interpretation: Performing Lab: Notes/Report: [facility] ,Ycakbc252187-565 mmol/LPotassium3.73.5-5.1 mmol/HJhwzdpgo07376-654 mmol/LCarbon Jycogsf65.721.0-32.0 mmol/LAnion Gap7.5Mycjymf13819-267 mg/dLBlood Urea Nitrogen 14.07.0-18.0 mg/dLCreatinine0.820.55-1.02 mg/dLEstimated GFR ( Rasheeda>60 >=60 mL/min/1.73m 2Estimated GFR (Non- Yamel>60>=60 mL/min/1.73m 2BUN Creatinine Ratio17.1Xakiczq1.18.5-10.1 mg/dLBilirubin Total0.60.2-1.0 mg/dL Aspartate Amino Vubfaqnkgdi0957-06 U/LAlanine Ojmekyktvaqsxrst3320-26 U/L Alkaline Ndoemovtcqn3112-014 U/LTotal Protein7.46.4-8.2 g/dLAlbumin Level3.33.4- 5.0 g/dLGlobulin4.1Albumin Globulin Ratio0.8Performing Lab:see noteML - [facility] LBD-DIMER Reviewed date:07/12/2025 09:29:39 AM Interpretation: Performing Lab: Notes/Report: [facility] ,D Dimer0.24<=0.59 mg/L FEU Increases in D-Dimer concentration observed [...] anticoagulant therapy, stress, and generalized hospitalization. Performing Lab:see noteML - [facility] LBCBC AUTO DIFF Reviewed date:07/12/2025 09:29:39 AM Interpretation: Performing Lab: Notes/Report: [facility] ,White Blood Count10.74.0-11.0 10 3/uLRed Blood Count4.584.20-5.40 10 6/uL Afxywylspw03.912.0-16.0 g/nZArgpshusyu16.536.0-48.0 %Mean Corpuscular Miwsxq87.9 81.0-99.0 fLMean Corpuscular Dbrtktlcsw73.026.7-34.0 pgMean Corpuscular HGB Conc 31.729.9-35.2 g/dLRed Cell Distribution Width15.411.0-15.0 %Platelet Lfnpm581 150-450 10 3/uLMean Platelet Volume9.29.5-13.5 fLNeutrophils Percent Auto68.8 43.0-75.0 %Lymphocytes Percent Auto22.020.5-60.0 %Monocytes Percent Auto4.11.7- 12.0 %Eosinophils Percent Auto4.00.9-7.0 %Basophils Percent Auto0.60.2-2.0 % Immature Granulocytes Pct Auto0.50.0-0.5 %Neutrophils Absolute Auto7.31.4-6.5 10 3/uLLymphocytes Absolute Auto2.31.2-3.8 10 3/uLMonocytes Absolute Auto0.40.3-0.8 10 3/uLEosinophils Absolute Auto0.40.0-0.7 10 3/uLBasophils Absolute Auto0.10.0- 0.1 10 3/uLImmature Granulocytes Abs Auto0.050.00-0.03 10 3/uLPerforming Lab:see noteML - [facility] LBXR ankle RT min 3V Reviewed date:06/14/2025 10:35:52 AM Interpretation: Performing Lab: Notes/Report: Source Facility: [facility]-[address] [place] [address] [place] [address] XRay Report Signed Patient: NOEL PAUL MR#: [id number] : 1990 Acct:[id number] Age/Sex: 34 / F ADM Date: 06/14/25 Loc: RAD Attending Dr: Enoch Burdick D.P.M. Ordering Physician: Enoch Burdick D.P.M. Date of Service: 06/14/25 Procedure(s): XR ankle RT min 3V Accession Number(s): [id number] cc: MONIQUE EMMANUEL ; Enoch Burdick D.P.M. The [place] [address] Patient Name: NOEL PAUL MRN: [id number] date: 1990 Sex: F Assigned Patient Location: RAD Current Patient Location: [facility] Accession/Order Number: [id number] Exam Date: 06/14/2025 10:19 Report Date: 06/14/2025 [...] Adames M.D. 06/14/2025 10:27 AM Dictation Location: [place] [address] Electronically authenticated by: [id number] Y Date: 06/14/2025 10:27 Dictated By: Leisa Adames M.D. Signed By: 06/14/25 1030 DD/ 1027 TD/TT: Campus Recruiting Intern:PROF Banerjee(COMP METB) Reviewed date:03/06/2025 11:14:33 AM Interpretation: Performing Lab: Notes/Report: [facility] ,Awzfqz389478-816 mmol/LPotassium4.13.5-5.1 mmol/DTngbnuon78585-393 mmol/LCarbon Iongkvc41.721.0-32.0 mmol/LAnion Gap10.4Mjfiimj2976-532 mg/dLBlood Urea Nitrogen 16.07.0-18.0 mg/dLCreatinine0.940.55-1.02 mg/dLEstimated GFR ( Rasheeda>60 >=60 mL/min/1.73m 2Estimated GFR (Non- Yamel>60>=60 mL/min/1.73m 2BUN Creatinine Ratio17.1Dzowbzx4.28.5-10.1 mg/dLBilirubin Total0.60.2-1.0 mg/dL Aspartate Amino Hbnplskyehq7493-09 U/LAlanine Bmbpjvpojpxjkmgx2269-44 U/L Alkaline Tbucfbnwpko1951-145 U/LTotal Protein7.36.4-8.2 g/dLAlbumin Level3.13.4- 5.0 g/dLGlobulin4.2Albumin Globulin Ratio0.7Performing Lab:see noteML - [facility] LBPREG QUANT HCG Reviewed date:03/06/2025 11:14:33 AM Interpretation: Performing Lab: Notes/Report: [facility] ,HCG Quantitative<1 5-50 0.2-1 WEEK 50-500 1-2 WEEKS 100-5,000 2-3 WEEKS 500-10,000 3-4 WEEKS 1,000-50,000 4-5 WEEKS 10,000-100,000 5-6 WEEKS 15,000-200,000 6-8 WEEKS 10,000-100,000 2-3 MONTHS Performing Lab:see noteML - [facility] LBLIPASE Reviewed date:03/06/2025 11:14:33 AM Interpretation: Performing Lab: Notes/Report: [facility] ,Yffpaq95.016.0-77.0 U/LPerforming Lab:see noteML - [facility] LB LACTATE or LACTIC ACID Reviewed date:03/06/2025 11:14:33 AM Interpretation: Performing Lab: Notes/Report: [facility] ,Lactate/Lactic Acid1.00.4-2.0 mmol/LPerforming Lab:see noteML - [facility] LBCBC AUTO DIFF Reviewed date:03/06/2025 11:14:33 AM Interpretation: Performing Lab: Notes/Report: [facility] ,White Blood Count12.34.0-11.0 10 3/uLRed Blood Count4.684.20-5.40 10 6/uL Tgvjbwqmii82.012.0-16.0 g/xQNvhjoqanjl94.736.0-48.0 %Mean Corpuscular Isxkvw43.7 81.0-99.0 fLMean Corpuscular Hriawampjd59.626.7-34.0 pgMean Corpuscular HGB Conc 31.029.9-35.2 g/dLRed Cell Distribution Width15.311.0-15.0 %Platelet Ffhnv775 150-450 10 3/uLMean Platelet Volume9.49.5-13.5 fLNeutrophils Percent Auto70.1 43.0-75.0 %Lymphocytes Percent Auto20.920.5-60.0 %Monocytes Percent Auto5.11.7- 12.0 %Eosinophils Percent Auto3.00.9-7.0 %Basophils Percent Auto0.50.2-2.0 % Immature Granulocytes Pct Auto0.40.0-0.5 %Neutrophils Absolute Auto8.61.4-6.5 10 3/uLLymphocytes Absolute Auto2.61.2-3.8 10 3/uLMonocytes Absolute Auto0.60.3-0.8 10 3/uLEosinophils Absolute Auto0.40.0-0.7 10 3/uLBasophils Absolute Auto0.10.0- 0.1 10 3/uLImmature Granulocytes Abs Auto0.050.00-0.03 10 3/uLPerforming Lab:see noteML - [facility] LBCBC AUTO DIFF Reviewed date:02/11/2025 04:35:45 PM Interpretation: Performing Lab: Notes/Report: [facility] ,White Blood Count10.94.0-11.0 10 3/uLRed Blood Count5.004.20-5.40 10 6/uL Lqzxlzlcyk91.612.0-16.0 g/aZCrgcfgnuts34.636.0-48.0 %Mean Corpuscular Tszbkh63.2 81.0-99.0 fLMean Corpuscular Qutveiklst25.226.7-34.0 pgMean Corpuscular HGB Conc 30.329.9-35.2 g/dLRed Cell Distribution Width15.111.0-15.0 %Platelet Jydqi219 150-450 10 3/uLMean Platelet Volume9.29.5-13.5 fLNeutrophils Percent Auto69.5 43.0-75.0 %Lymphocytes Percent Auto20.620.5-60.0 %Monocytes Percent Auto5.31.7- 12.0 %Eosinophils Percent Auto3.40.9-7.0 %Basophils Percent Auto0.70.2-2.0 % Immature Granulocytes Pct Auto0.50.0-0.5 %Neutrophils Absolute Auto7.61.4-6.5 10 3/uLLymphocytes Absolute Auto2.21.2-3.8 10 3/uLMonocytes Absolute Auto0.60.3-0.8 10 3/uLEosinophils Absolute Auto0.40.0-0.7 10 3/uLBasophils Absolute Auto0.10.0- 0.1 10 3/uLImmature Granulocytes Abs Auto0.050.00-0.03 10 3/uLPerforming Lab:see noteML - [facility] LBXR ankle LT min 3V Reviewed date:01/21/2025 08:55:44 AM Interpretation: Performing Lab: Notes/Report: Source Facility: [place] [address] [address] XRay Report Signed Patient: NOEL PAUL MR#: [id number] : 1990 Acct:[id number] Age/Sex: 34 / F ADM Date: 01/19/25 Loc: ER Attending Dr: Ordering Physician: Juanjo Weber D.O. Date of Service: 01/19/25 Procedure(s): XR ankle LT min 3V Accession Number(s): [id number] cc: MONIQUE EMMANUEL ; Juanjo Weber D.O. [place] [address] Patient Name: NOEL PAUL MRN: [id number] date: 1990 Sex: F Assigned Patient Location: ER Current Patient Location: ER Accession/Order Number: [id number] Exam Date: 01/19/2025 12:45 Report Date: 01/19/2025 12:47 At the request of: JUANJO WEBER Procedure: XR ankle LT min 3V [...] Fermín Wilks M.D.01/19/2025 12:47 PM Dictation Location: [place] [address] Electronically authenticated by: [id number] Y Date: 01/19/2025 12:47 Dictated By: Fermín Wilks M.D. Signed By: 01/19/25 1249 DD/ 1247 TD/TT: [facility] Recruiting Intern:CT facial bones w con Reviewed date:11/19/2024 08:28:29 AM Interpretation: Performing Lab: Notes/Report: Source Facility: [place] [address] CT Scan Report Signed Patient: NOEL PAUL MR#: [id number] : 1990 Acct:[id number] Age/Sex: 34 / F ADM Date: 11/17/24 Loc: ER Attending Dr: Ordering Physician: Vilma Goncalves Date of Service: 11/17/24 Procedure(s): CT facial bones w con Accession Number(s): [id number] cc: MONIQUE EMMANUEL [place] [address] Patient Name: NOEL PAUL MRN: [id number] date: 1990 Sex: F Assigned Patient Location: ER Current Patient Location: ER Accession/Order Number: [id number] Exam Date: 11/17/2024 16:00 Report Date: 11/17/2024 [...] M.D. Signed By: 11/17/241656 DD/ 53 TD/TT: Campus Recruiting Intern:SARS-CoV-2 Ag* Reviewed date:11/19/2024 08:28:29 AM Interpretation: Performing Lab: Notes/Report: [facility] ,SARS-CoV-2 AgNEGATIVENEGATIVE This test has not been FDA cleared [...] terminated or authorization is revoked sooner. Performing Lab:see noteML - [facility] LBPROF 14(COMP METB) Reviewed date:11/19/2024 08:28:29 AM Interpretation: Performing Lab: Notes/Report: [facility] ,Vbrrzc861723-506 mmol/LPotassium4.03.5-5.1 mmol/RAiodpmhl66311-014 mmol/LCarbon Wnqkght56.421.0-32.0 mmol/LAnion Gap12.5Yvrjcbx82259-610 mg/dLBlood Urea Acqqpbei77.07.0-18.0 mg/dLCreatinine0.910.55-1.02 mg/dLEstimated GFR ( Rasheeda>60>=60 mL/min/1.73m 2Estimated GFR (Non- Yamel>60>=60 mL/min/1.73m 2BUN Creatinine Ratio13.7Refuero8.98.5-10.1 mg/dLBilirubin Total0.40.2-1.0 mg/dL Aspartate Amino Shimvyuyakm7959-97 U/LAlanine Ytpoaqqulmnepxov9188-75 U/L Alkaline Adiptxxendc6752-182 U/LTotal Protein7.36.4-8.2 g/dLAlbumin Level3.13.4- 5.0 g/dLGlobulin4.2Albumin Globulin Ratio0.7Performing Lab:see noteML - [facility] LBCBC AUTO DIFF Reviewed date:11/19/2024 08:28:29 AM Interpretation: Performing Lab: Notes/Report: [facility] ,White Blood Count6.04.0-11.0 10 3/uLRed Blood Count4.654.20-5.40 10 6/uL Isdhepccve12.712.0-16.0 g/iXRmxnqlfhtd83.836.0-48.0 %Mean Corpuscular Hqvlut85.4 81.0-99.0 fLMean Corpuscular Vfvjzfrmdt85.226.7-34.0 pgMean Corpuscular HGB Conc 30.229.9-35.2 g/dLRed Cell Distribution Width15.211.0-15.0 %Platelet Pdpxu075 150-450 10 3/uLMean Platelet Volume9.59.5-13.5 fLNeutrophils Percent Auto59.9 43.0-75.0 %Lymphocytes Percent Auto26.720.5-60.0 %Monocytes Percent Auto8.11.7- 12.0 %Eosinophils Percent Auto4.30.9-7.0 %Basophils Percent Auto0.50.2-2.0 % Immature Granulocytes Pct Auto0.50.0-0.5 %Neutrophils Absolute Auto3.61.4-6.5 10 3/uLLymphocytes Absolute Auto1.61.2-3.8 10 3/uLMonocytes Absolute Auto0.50.3-0.8 10 3/uLEosinophils Absolute Auto0.30.0-0.7 10 3/uLBasophils Absolute Auto0.00.0- 0.1 10 3/uLImmature Granulocytes Abs Auto0.030.00-0.03 10 3/uLPerforming Lab:see noteML - [facility] LBPROF CHEM 8 (BAS METB) Reviewed date:11/06/2024 03:02:08 PM Interpretation: Performing Lab: Notes/Report: [facility] ,Axsjvt393161-976 mmol/LPotassium4.23.5-5.1 mmol/YFlaqyxdi98751-971 mmol/LCarbon Qzazxol74.221.0-32.0 mmol/LAnion Gap10.1Trwmect47721-629 mg/dLBlood Urea Pcnibjaj97.07.0-18.0 mg/dLCreatinine0.930.55-1.02 mg/dLEstimated GFR ( Rasheeda>60>=60 mL/min/1.73m 2Estimated GFR (Non- Yamel>60>=60 mL/min/1.73m 2BUN Creatinine Ratio18.8Bbnlnou0.98.5-10.1 mg/dLPerforming Lab:see noteML - [facility] LBCBC AUTO DIFF Reviewed date:11/06/2024 03:02:08 PM Interpretation: Performing Lab: Notes/Report: [facility] ,White Blood Count17.84.0-11.0 10 3/uLRed Blood Count4.564.20-5.40 10 6/uL Ucgndqmsfa16.712.0-16.0 g/kELjkpolfsky84.336.0-48.0 %Mean Corpuscular Ctffos77.0 81.0-99.0 fLMean Corpuscular Zqnebbhjgc86.726.7-34.0 pgMean Corpuscular HGB Conc 30.529.9-35.2 g/dLRed Cell Distribution Width14.911.0-15.0 %Platelet Mndzl941 150-450 10 3/uLMean Platelet Miwfir23.09.5-13.5 fLNeutrophils Percent Auto85.8 43.0-75.0 %Lymphocytes Percent Auto8.820.5-60.0 %Monocytes Percent Auto4.41.7- 12.0 %Eosinophils Percent Auto0.00.9-7.0 %Basophils Percent Auto0.20.2-2.0 % Immature Granulocytes Pct Auto0.80.0-0.5 %Neutrophils Absolute Auto15.31.4-6.5 10 3/uLLymphocytes Absolute Auto1.61.2-3.8 10 3/uLMonocytes Absolute Auto0.80.3- 0.8 10 3/uLEosinophils Absolute Auto0.00.0-0.7 10 3/uLBasophils Absolute Auto0.0 0.0-0.1 10 3/uLImmature Granulocytes Abs Auto0.140.00-0.03 10 3/uLPerforming Lab:see note - [facility] LBVenous Blood Gas Reviewed date:11/06/2024 11:41:03 AM Interpretation: Performing Lab: Notes/Report: [facility] ,pH VBG7.3267.330-7.861UQZ0 VBG51.840.0-52.0 mmHgPerforming Lab:[facility] LBPROF CHEM 8 (BAS METB) Reviewed date:11/06/2024 03:02:08 PM Interpretation: Performing Lab: Notes/Report: [facility] ,Zqgudn221657-640 mmol/LPotassium3.83.5-5.1 mmol/XNrdoferl31292-289 mmol/LCarbon Cflvefx78.621.0-32.0 mmol/LAnion Gap12.8Rhcpxru16259-686 mg/dLBlood Urea Xuetsavp85.07.0-18.0 mg/dLCreatinine1.190.55-1.02 mg/dLEstimated GFR ( Rasheeda>60>=60 mL/min/1.73m 2Estimated GFR (Non- Ame51>=60 mL/min/1.73m 2 BUN Creatinine Ratio12.5Qvfroxk1.88.5-10.1 mg/dLPerforming Lab:see [facility] LBCBC AUTO DIFF Reviewed date:11/06/2024 03:02:08 PM Interpretation: Performing Lab: Notes/Report: [facility] ,White Blood Count15.34.0-11.0 10 3/uLRed Blood Count4.924.20-5.40 10 6/uL Qdhtcopqsj34.512.0-16.0 g/jWLbrycywasl36.136.0-48.0 %Mean Corpuscular Cuskks19.5 81.0-99.0 fLMean Corpuscular Amlgdifbgw18.426.7-34.0 pgMean Corpuscular HGB Conc 30.429.9-35.2 g/dLRed Cell Distribution Width14.911.0-15.0 %Platelet Stacf945 150-450 10 3/uLMean Platelet Volume9.59.5-13.5 fLNeutrophils Percent Auto91.2 43.0-75.0 %Lymphocytes Percent Auto6.920.5-60.0 %Monocytes Percent Auto0.51.7- 12.0 %Eosinophils Percent Auto0.10.9-7.0 %Basophils Percent Auto0.30.2-2.0 % Immature Granulocytes Pct Auto1.00.0-0.5 %Neutrophils Absolute Auto14.01.4-6.5 10 3/uLLymphocytes Absolute Auto1.11.2-3.8 10 3/uLMonocytes Absolute Auto0.10.3- 0.8 10 3/uLEosinophils Absolute Auto0.00.0-0.7 10 3/uLBasophils Absolute Auto0.0 0.0-0.1 10 3/uLImmature Granulocytes Abs Auto0.150.00-0.03 10 3/uLPerforming Lab:see noteML - [facility] LBBNP Reviewed date:11/06/2024 03:02:08 PM Interpretation: Performing Lab: Notes/Report: [facility] , Pro B Type Natriuretic Pept78.0<=450.0 pg/mLPerforming Lab:see note - [facility] LBHCG Qualitative* Reviewed date:11/05/2024 12:33:13 PM Interpretation: Performing Lab: Notes/Report: [facility] QualitativeNEGATIVENEGATIVEPerforming Lab:see noteML - [facility] LBVenous Blood Gas Reviewed date:11/06/2024 11:41:03 AM Interpretation: Performing Lab: Notes/Report: [facility] ,pH VBG7.3877.330-7.815EEA1 VBG44.840.0-52.0 mmHgPerforming Lab:see noteML - [facility] LBCBC AUTO DIFF Reviewed date:11/05/2024 12:21:30 PM Interpretation: Performing Lab: Notes/Report: [facility] ,White Blood Count11.84.0-11.0 10 3/uLRed Blood Count4.804.20-5.40 10 6/uL Czzatujbob39.112.0-16.0 g/gTOddcizdata36.336.0-48.0 %Mean Corpuscular Neiayb00.0 81.0-99.0 fLMean Corpuscular Xashhgfnll67.226.7-34.0 pgMean Corpuscular HGB Conc 30.029.9-35.2 g/dLRed Cell Distribution Width15.011.0-15.0 %Platelet Lqbdm845 150-450 10 3/uLMean Platelet Volume9.39.5-13.5 fLNeutrophils Percent Auto71.3 43.0-75.0 %Lymphocytes Percent Auto19.520.5-60.0 %Monocytes Percent Auto4.91.7- 12.0 %Eosinophils Percent Auto3.30.9-7.0 %Basophils Percent Auto0.50.2-2.0 % Immature Granulocytes Pct Auto0.50.0-0.5 %Neutrophils Absolute Auto8.41.4-6.5 10 3/uLLymphocytes Absolute Auto2.31.2-3.8 10 3/uLMonocytes Absolute Auto0.60.3-0.8 10 3/uLEosinophils Absolute Auto0.40.0-0.7 10 3/uLBasophils Absolute Auto0.10.0- 0.1 10 3/uLImmature Granulocytes Abs Auto0.060.00-0.03 10 3/uLPerforming Lab:see noteML - [facility] LBECG 12 lead Reviewed date:10/29/2024 12:06:57 PM Interpretation: Performing Lab: Notes/Report: Source Facility: [facility]-[address] [place] [address] [place] [address] Electrocardiograph Report Signed Patient: NOEL PAUL MR#: [id number] : 1990 Acct:[id number] Age/Sex: 34 / F ADM Date: 10/26/24 Loc: PST Attending Dr: Gaurav Snyder M.D. Ordering Physician: Gaurav Snyder M.D. 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 Signed By: 10/28/24 0735 DD/ 1047 TD/TT: Campus Recruiting Intern:PROF INGE Haas ([facility]) Reviewed date:10/29/2024 12:06:57 PM Interpretation: Performing Lab: Notes/Report: [facility] ,Tqygtm979717-568 mmol/LPotassium4.03.5-5.1 mmol/XIhhhgkek18901-277 mmol/LCarbon Sazjcdr23.121.0-32.0 mmol/LAnion Gap11.4Yxmxuil06054-672 mg/dLBlood Urea Ymjzgpes68.07.0-18.0 mg/dLCreatinine0.940.55-1.02 mg/dLEstimated GFR ( Rasheeda>60>=60 mL/min/1.73m 2Estimated GFR (Non- Yamel>60>=60 mL/min/1.73m 2BUN Creatinine Ratio16.1Sdpptcu3.18.5-10.1 mg/dLPerforming Lab:see noteML - [facility] LBCBC AUTO DIFF Reviewed date:10/29/2024 12:06:57 PM Interpretation: Performing Lab: Notes/Report: [facility] ,White Blood Count11.14.0-11.0 10 3/uLRed Blood Count4.724.20-5.40 10 6/uL Jjamdpctqe49.912.0-16.0 g/xRTjcprfoomw14.136.0-48.0 %Mean Corpuscular Dxrmpn06.8 81.0-99.0 fLMean Corpuscular Fyeeoinosg94.226.7-34.0 pgMean Corpuscular HGB Conc 30.429.9-35.2 g/dLRed Cell Distribution Width14.611.0-15.0 %Platelet Yhjxq314 150-450 10 3/uLMean Platelet Volume9.69.5-13.5 fLNeutrophils Percent Auto74.9 43.0-75.0 %Lymphocytes Percent Auto17.120.5-60.0 %Monocytes Percent Auto4.01.7- 12.0 %Eosinophils Percent Auto3.00.9-7.0 %Basophils Percent Auto0.50.2-2.0 % Immature Granulocytes Pct Auto0.50.0-0.5 %Neutrophils Absolute Auto8.31.4-6.5 10 3/uLLymphocytes Absolute Auto1.91.2-3.8 10 3/uLMonocytes Absolute Auto0.40.3-0.8 10 3/uLEosinophils Absolute Auto0.30.0-0.7 10 3/uLBasophils Absolute Auto0.10.0- 0.1 10 3/uLImmature Granulocytes Abs Auto0.060.00-0.03 10 3/uLPerforming Lab:see noteML - [facility] LBErythrocyte Sedimentation Rate Reviewed date:10/23/2024 09:49:43 AM Interpretation: Performing Lab: Notes/Report: [facility] ,Erythrocyte Sedimentation Rate82<=20 mm/hrPerforming Lab:see noteML - [facility] LBPROF CHEM 8 (BAS METB) Reviewed date:10/23/2024 09:49:43 AM Interpretation: Performing Lab: Notes/Report: [facility] ,Qtknwz873650-872 mmol/LPotassium3.43.5-5.1 mmol/PDnmatlet54653-963 mmol/LCarbon Uqjcysz50.821.0-32.0 mmol/LAnion Gap15.2Ezxziqn43989-515 mg/dLBlood Urea Tndjeest40.07.0-18.0 mg/dLCreatinine0.920.55-1.02 mg/dLEstimated GFR ( Rasheeda>60>=60 mL/min/1.73m 2Estimated GFR (Non- Yamel>60>=60 mL/min/1.73m 2BUN Creatinine Ratio19.3Ivwbuhv9.48.5-10.1 mg/dLPerforming Lab:see noteML - [facility] LBCRP Reviewed date:10/23/2024 09:49:43 AM Interpretation: Performing Lab: Notes/Report: [facility] ,C Reactive Protein3.76<=0.50 mg/dLPerforming Lab:see noteML - [facility] LBCBC AUTO DIFF Reviewed date:10/23/2024 09:49:43 AM Interpretation: Performing Lab: Notes/Report: [facility] ,White Blood Count13.54.0-11.0 10 3/uLRed Blood Count4.974.20-5.40 10 6/uL Sgxzjyqikq47.712.0-16.0 g/uXUjmooztytc27.736.0-48.0 %Mean Corpuscular Ccqkyt34.9 81.0-99.0 fLMean Corpuscular Bnhjosvwmi69.626.7-34.0 pgMean Corpuscular HGB Conc 31.229.9-35.2 g/dLRed Cell Distribution Width14.811.0-15.0 %Platelet Lfrqm625 150-450 10 3/uLMean Platelet Volume9.49.5-13.5 fLNeutrophils Percent Auto71.6 43.0-75.0 %Lymphocytes Percent Auto19.920.5-60.0 %Monocytes Percent Auto4.91.7- 12.0 %Eosinophils Percent Auto2.60.9-7.0 %Basophils Percent Auto0.50.2-2.0 % Immature Granulocytes Pct Auto0.50.0-0.5 %Neutrophils Absolute Auto9.71.4-6.5 10 3/uLLymphocytes Absolute Auto2.71.2-3.8 10 3/uLMonocytes Absolute Auto0.70.3-0.8 10 3/uLEosinophils Absolute Auto0.40.0-0.7 10 3/uLBasophils Absolute Auto0.10.0- 0.1 10 3/uLImmature Granulocytes Abs Auto0.070.00-0.03 10 3/uLPerforming Lab:see noteML - [facility] LB foot RT wo con Reviewed date:10/18/2024 01:38:15 PM Interpretation: Performing Lab: Notes/Report: Source Facility: [facility]-[address] [place] [address] Magnetic Resonance Report Signed Patient: NOEL PAUL MR#: [id number] : 1990 Acct:[id number] Age/Sex: 34 / F ADM Date: 10/16/24 Loc: MRI Attending Dr: TIARA AVELAR Ordering Physician: TIARA AVELAR Date of Service: 10/16/24 Procedure(s): foot RT wo con Accession Number(s): [id number] cc: TIARA AVELAR ; MONIQUE EMMANUEL [place] [address] Patient Name: NOEL PAUL MRN: [facility]:[id number] date: 1990 Sex: F Assigned Patient Location: MRI Current Patient Location: MRI Accession/Order Number: [id number] Exam Date: 10/16/2024 09:54 Report Date: 10/18/2024 [...] appear intact on the edge of the pmejb-cp-mjta of the sagittal images. There is no [...] Signed By: 10/18/24 1106 DD/ 1104 TD/TT: Campus Recruiting Intern:TOÑO Reviewed date:02/11/2025 04:35:45 PM Interpretation: Performing Lab: Notes/Report: [facility] ,Toño39.050.0-170.0 ug/dLPerforming Lab:see noteML - [facility] LB GLYCOHEMOGLOBIN A1C Reviewed date:02/11/2025 04:35:45 PM Interpretation: Performing Lab: Notes/Report: [facility] ,Glycohemoglobin A1C6.94.5-6.2 % ADA RECOMMENDED LIMIT 4.0 - 6.0 ADA THERAPEUTIC TARGET < 7.0 ACTION SUGGESTED > 7.0 Estimated Average Fjnwrlc371Tfxzlkolrd Lab:see note - [facility] LB GLYCOHEMOGLOBIN A1C Reviewed date:10/15/2024 09:36:10 AM Interpretation: Performing Lab: Notes/Report: [facility] ,Glycohemoglobin A1C6.64.5-6.2 % ADA RECOMMENDED LIMIT 4.0 - 6.0 ADA THERAPEUTIC TARGET < 7.0 ACTION SUGGESTED > 7.0 Estimated Average Cousocz699Iokphzqltt [facility] hip RT 2V w/ pelvis Reviewed date:09/18/2025 11:16:33 AM Interpretation: Performing Lab: Notes/Report: Source Facility: [place] [address] XRay Report Signed Patient: NOEL PAUL MR#: [id number] : 1990 Acct:[id number] Age/Sex: 35 / F ADM Date: 09/16/25 Loc: [facility] Attending Dr: MONIQUE EMMANUEL Ordering Physician: MONIQUE EMMANUEL Date of Service: 09/16/25 Procedure(s): XR hip RT 2V w/ pelvis Accession Number(s): [id number] cc: MONIQUE EMMANUEL [place] [address] Patient Name: NOEL PAUL MRN: [id number] date: 1990 Sex: F Assigned Patient Location: RAD Current Patient Location: [facility] Accession/Order Number: [id number] Exam Date: 09/16/2025 11:32 Report Date: 09/16/2025 14:34 At the request of: MONIQUE EMMANUEL Procedure: XR hip RT 2V w/ pelvis CLINICAL DATA: Right hip pain and burning for the past 2 months. No injury. LUMBAR SPINE - 3 views: COMPARISON: CT 03/05/2025 AP as well as lateral lumbar and lumbosacral views were obtained. There is no evidence of fracture. Alignment is maintained on the lateral view. The disc spaces are normal in height. There is no significant degenerative change. The sacroiliac joints are maintained. There are no paraspinal soft tissue abnormalities. XR/XR hip RT 2V w/ pelvis IMPRESSION: NO ACUTE BONY FINDINGS. RIGHT HIP WITH AP PELVIS - 3 views COMPARISON: CT 03/05/2025 AP view of the pelvis as well as AP and frog-lateral views of the right hip were obtained. No fracture or dislocation is identified. The hip joint spaces are maintained. There is no significant arthritic disease. No soft tissue abnormalities are present. IMPRESSION: NO ACUTE BONY FINDINGS. Impression dictated by: Leisa Adames M.D. 09/16/2025 2:34 PM Dictation Location: [place] [address] Electronically authenticated by: [id number] Y Date: 09/16/2025 14:34 Dictated By: Leisa Adames M.D. Signed By: 09/16/25 1436 DD/ 1434 TD/TT: Campus Recruiting Intern:XR shoulder RT min 2V Reviewed date:09/05/2025 11:24:00 AM Interpretation: Performing Lab: Notes/Report: Source Facility: [place] [address] XRay Report Signed Patient: NOEL PAUL MR#: [id number] : 1990 Acct:[id number] Age/Sex: 35 / F ADM Date: 09/04/25 Loc: ER Attending Dr: Ordering Physician: Cain Dee Date of Service: 09/04/25 Procedure(s): XR shoulder RT min 2V Accession Number(s): [id number] cc: MONIQUE EMMANUEL ; Cain Dee [place] [address] Patient Name: NOEL PAUL MRN: [id number] date: 1990 Sex: F Assigned Patient Location: ER Current Patient Location: ED.MAIN Accession/Order Number: [id number] Exam Date: 09/04/2025 21:45 Report Date: 09/04/2025 22:12 At the request of: CAIN DEE MD Procedure: XR shoulder RT min 2V 3 views right shoulder CLINICAL HISTORY: right shoulder pain COMPARISON: None FINDINGS: No fractures or dislocation.. No significant degenerative change. Soft tissues unremarkable.. XR/XR shoulder RT min 2V IMPRESSION: No acute bony process. Impression dictated by: Joshua Prince M.D. 09/04/2025 10:12 PM Dictation Location: [place] [address] Electronically authenticated by: [id number] Y Date: 09/04/2025 22:12 Dictated By: Joshua Prince M.D. Signed By: 09/04/252213 DD/ 11 TD/TT: Campus Recruiting Intern:TOÑO Reviewed date:08/28/2025 09:42:48 AM Interpretation: Performing Lab: Notes/Report: [facility] ,Iron34.050.0-170.0 ug/dLPerforming Lab:see noteML - [facility] LBCBC AUTO DIFF Reviewed date:08/28/2025 09:42:48 AM Interpretation: Performing Lab: Notes/Report: [facility] ,White Blood Count9.94.0-11.0 10 3/uLRed Blood Count4.824.20-5.40 10 6/uL Ivrujyupua99.912.0-16.0 g/eAJsplojlxyh40.636.0-48.0 %Mean Corpuscular Ytelot85.2 81.0-99.0 fLMean Corpuscular Iocvmtueah31.726.7-34.0 pgMean Corpuscular HGB Conc 30.129.9-35.2 g/dLRed Cell Distribution Width15.511.0-15.0 %Platelet Vzowk067 150-450 10 3/uLMean Platelet Volume9.49.5-13.5 fLNeutrophils Percent Auto67.7 43.0-75.0 %Lymphocytes Percent Auto22.120.5-60.0 %Monocytes Percent Auto5.31.7- 12.0 %Eosinophils Percent Auto3.60.9-7.0 %Basophils Percent Auto0.80.2-2.0 % Immature Granulocytes Pct Auto0.50.0-0.5 %Neutrophils Absolute Auto6.71.4-6.5 10 3/uLLymphocytes Absolute Auto2.21.2-3.8 10 3/uLMonocytes Absolute Auto0.50.3-0.8 10 3/uLEosinophils Absolute Auto0.40.0-0.7 10 3/uLBasophils Absolute Auto0.10.0- 0.1 10 3/uLImmature Granulocytes Abs Auto0.050.00-0.03 10 3/uLPerforming Lab:see noteML - [facility] Reason For Referral Reason sleep study Diagnosis 1 Snoring (R06.83) Referral Organization [facility] Referring Provider First Name Monique Referring Provider Last Name Danni Referring Provider [facility] [place] Referred Provider [facility], [facility] Referred Provider Specialty Sleep Medici ne Referral Priority Routine Reason right thigh pain Diagnosis 1 Right leg pain (M79. 604) Referral Organization [facility] Referring Provider First Name Monique Referring Provider Last Name Danni Referring Provider [facility] icine Referred Provider [facility], Physical Therap y Referred Provider Specialty Physical The rapist Referral Priority Routine Diagnosis 1 Vision abnormalities (H53.9) Referral Organization [facility] Referring Provider First Name Monique Referring Provider Last Name Danni Referring Provider [facility] [place] Referred Provider Melvin Damon Referred Provider Specialty Neurology Referral Priority Routine Reason needs functional cap acity eval for paperwork Diagnosis 1 Sciatica (M54.30) Referral Organization [facility] Referring Provider First Name Monique Referring Provider Last Name Danni Referring Provider [facility] icine Referred Provider [facility], Physical Therap y Referred Provider Specialty Physical The rapist Referral Priority Routine Medications Medication SIG (Take, Route, Frequency, Duration) Notes Start Date End Date Status Mounjaro 5 MG/0.5ML as directed Subcutan eous weekly; Duration: 28 days call for next dose 06/20/2025 ActiveGabapentin 100 MG1 capsule prn Orally twice a day; Duration: 30 days 5ActiveOneTouch Ultra -USE 1 STRIP TO TEST FASTING BLOOD SUGAR ONCE EVERY MORNING; Duration: 90ActiveOneTouch Delica Plus Exeukm01F -USE TO TEST BLOOD SUGAR ONCE EVERY MORNING; Duration: 90ActiveOmeprazole 20 MGTAKE 1 CAPSULE BY MOUTH EVERY DAY; Duration: 90ActiveNatural Vitamin D-3 125 MCG (5000 UT)TAKE 1 TABLET BY MOUTH EVERY DAY FOR 30 DAYS; Duration: 90ActiveFerrous Sulfate 325 (65 Fe) MG1 tablet Orally Three times a Week; Duration: 30 daysActive Escitalopram Oxalate 20 MG1/2 tablet for the first week then 1 tablet Orally Once a day; Duration: 90 daysActiveDexcom G7 Sensor -as directed; Duration: 28 days09/20/2024ctiveDexcom G7 Business Strategist -USE DIRECTED; Duration: 30Active traZODone HCl 100 MGTAKE 1 TABLET BY MOUTH EVERYDAY AT BEDTIME NEEDED; Duration: 90 daysActivemetFORMIN HCl 500 MGTAKE 1 TABLET BY MOUTH TWICE A DAY WITH A MEAL FOR 30 DAYS; Duration: 90Active Immunizations Vaccine Route Administration Date Status Comme nts Tdap (Adacel) IM Intramuscular 07/06/2024 Administered Social History Tobacco Use: Social History Observation Description Date Details (start date - stop date) Never Smoker NA - NA Tobacco Use/Smoking Question Answer Notes Patient is a nonsmoker Alcohol Screen (Audit-C) Question Answer Notes Did you have a drink containing alcohol in the p ast year? Yes How often did you have 6 or more drinks on one occasion in the past year?Never (0 point)How many drinks did you have on a typical day when you were drinking in the past year?1 or 2 drinks (0 point)How often did you have a drink containing alcohol in the past year?Less than monthly (1 point)Dkdcpm5Ncvqehjpooapjc NegativeAUDIT-C (Standard) Question Answer Notes Did you have a drink containing alcohol in the p ast year? No Aniacf7HttitfgqgrsevtKgfetfmn Problems Problem Type SNOMED Code ICD Code Onset Dates Problem Status W/U Status Risk Notes Problem Hyperglycemia due to type 2 diabetes mellitus (822195070838912) Type 2 diabetes mellitus with hyperglycemia (E11.65) ActiveconfirmedProblemMorbid obesity (disorder) (723227959)Morbid (severe) obesity due to excess calories (E66.01)ActiveconfirmedProblemGout (66834208) Gout, unspecified (M10.9)ActiveconfirmedProblemContracture, unspecified foot (M24.576)ActiveconfirmedProblemTibialis tendinitis (44612248)Posterior tibial tendinitis, left leg (M76.822)ActiveconfirmedProblem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) (761274514)Other congenital malformations of lower limb(s), 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 ProblemGastroesophageal reflux disease (243948099)GERD (gastroesophageal reflux disease) (K21.9)ActiveconfirmedProblemAnxiety (81628509)Anxiety (F41.9)Active confirmedProblemObstructive sleep apnea syndrome (84264447)AQUILES (obstructive sleep apnea) (G47.33)ActiveconfirmedProblemInsomnia (557368097)Insomnia (G47.00) ActiveconfirmedProblemSciatica (47089329)Sciatica (M54.30)ActiveconfirmedProblem Otitis externa of left ear (7929130126381161)External otitis of left ear (H60.92)ActiveconfirmedProblemSialoadenitis (01626915)Salivary gland adenitis (K11.20)ActiveconfirmedProblemMorbid obesity (917299737)Class 3 obesity (E66.01) Activeconfirmed Vital Signs Temperature 98.1 degrees Fahrenheit 11/22/2024 Nhipeyvk60 %11/08/2024lood pressure cxjohlnyo69 mm Hg09/16/20256547Tklgwm97 in 09/16/2025lood pressure sizbfasc646 mm Hg09/16/20254686Fkjgqa382.4 lbs1MI 61.29 kg/m209/16/2025 Encounters Encounter Location Date Provider Diagnosis [address] [place] [address] 10/16/2024 Monique Emmanuel Class 3 obesity E66. 01 and Type 2 diabetes mellitus with hyperglycemia E11.[address] [address] 11/08/2024 Monique Emmanuel Snoring R06.83 and Hypoxia R09.02 [address] [place] [facility] [place] [address] 11/22/2024 Mo Hojonh Salivary gland adeni tis K11.20 [address] [place] [address] 12/06/2024 Monique Emmanuel Type 2 diabetes mellitus with hyperglycemia E11.65 and Fatigue R53.83 [facility] [address] [place] [address] 05/09/2025 Monique Emmanuel Class 3 obesity E66. [address] [address] 06/04/2025 Monique Emmanuel Class 3 obesity E66. [address] [place] [address] 07/02/2025 Monique Emmanuel Class 3 obesity E66. 01 and Type 2 diabetes mellitus with hyperglycemia E11.65 [address] [place] [address] 06/20/2025 Monique Emmanuel Type 2 diabetes mellitus with hyperglycemia E11.65 ; Class 3 obesity E66.01 and AQUILES (obstructive sleep apnea) G47.[address] [address] 07/22/2025 Monique Emmanuel Right hip pain M25.5 51 ; Morbid (severe) obesity due to excess calories E66.01 and Right leg pain M79.[address] [address] 08/01/2025 Monique Emmanuel Blurred vision, bilateral H53.8 and Right hip pain M25.[address] [place] [address] 09/16/2025 Monique Emmanuel Sciatica M54.[address] [address] 10/09/2024 Monique Emmanuel Type 2 diabetes mellitus with hyperglycemia E11.65 [address] [place] [address] 10/15/2024 Monique Emmanuel [facility] [facility] [place] [address] 4Doug HoyB[facility] [facility] [place] [address]/4Pamela CramerPneumonia J18.9BThe [facility] [facility] [place] [address]/Pamela CramerType 2 diabetes mellitus with hyperglycemia E11.65[facility] [facility] [place] [address]/10/2025Pamela CramerFatigue R53.83 [facility] [facility] [place] [address] 02/11/2025Pamela CramerLow iron E61.1B[facility] [facility] [place] [address]/Pamela CramerClass 3 obesity E66.01 [facility] [facility] [place] [address] 06/17/2025Pamela CramerVibra [facility] [facility] [place] [address]/Pamela CramerClass 3 obesity E66.01[facility] [place] [facility] [place] [address]/ Monique AngimerType 2 diabetes mellitus with hyperglycemia E11.65[facility] [facility] [place] [address]/Pamela CramerBVH [facility] [facility] [address] 08/06/2025Pamela CramerType 2 diabetes mellitus with hyperglycemia E11.65[facility] [facility] [address]/09/2025 Monique CramerVision abnormalities H53.9BThe [facility] [facility] [place] [address]/Pamela CramerLow iron E61.1 [address] [place] [facility] [place] [address] 08/28/2025Pamela CramerLow iron E61.1BThe [facility] [place] [facility] [place] [place] [address]/Pamela CramerSciatica M54.30[address] [place] [place] [place] [address]/ Monique Anastasiaciatica M54.30 Assessments Encounter Date Diagnosis (ICD Code) Assessment Notes Treatment Notes Treatment Clinical Notes Section Notes 10/16/2024 Class 3 obesity (ICD-10 - E66.01 ) work on diet fu one month CSA signed OARRS reviewed has taken in past 11/08/2024Snoring (ICD-10 - R06.83) recent surgery with hypoxia afterwards, admitted overnight morbid obesity 11/08/2024Hypoxia (ICD-10 - R09.02) continue abx sleep study fu xray 6 weeks 11/22/2024Salivary gland adenitis (ICD-10 - K11.20)12/06/2024Type 2 diabetes mellitus with hyperglycemia (ICD-10 - E11.65) increase dose of glipizide work on diet continue monitor, report if not coming down A1c 2 months 12/06/2024Fatigue (ICD-10 - R53.83) increase iron in diet, MVI with iron labs in 2 m watch for sleep study results 05/09/2025lass 3 obesity (ICD-10 - E66.01) work on diet fu 4 weeks 06/04/2025lass 3 obesity (ICD-10 - E66.01)work on diet07/02/2025lass 3 obesity (ICD-10 - E66.01) continue jacinto fu 3 m work on diet 06/20/2025Type 2 diabetes mellitus with hyperglycemia (ICD-10 - E11.65) 07/22/2025Morbid (severe) obesity due to excess calories (ICD-10 - E66.01) continue jacinto continue work on diet discussed referral to [facility] food diary, bring in one month to review 3 m fu for wt check 07/22/2025Right hip pain (ICD-10 - M25.551)kenalog [address]/01/2025Right hip pain (ICD-10 - M25.551) right thigh continue with PT 08/01/2025lurred vision, bilateral (ICD-10 - H53.8) comes and goes fu eye dr next week hold trazodone, newer med fu if not improving, neuro consult? 09/16/2025Sciatica (ICD-10 - M54.30) CSA signed, OARRS reviewed trial of emir PT didnt help 10/09/2024Type 2 diabetes mellitus with hyperglycemia (ICD-10 - E11.65) 11/08/2024neumonia (ICD-10 - J18.9)01/14/2025Type 2 diabetes mellitus with hyperglycemia (ICD-10 - E11.65)02/06/2025Fatigue (ICD-10 - R53.83)02/11/2025Low iron (ICD-10 - E61.1)04/09/2025lass 3 obesity (ICD-10 - E66.01)06/17/2025lass 3 obesity (ICD-10 - E66.01)07/15/2025Type 2 diabetes mellitus with hyperglycemia (ICD-10 - E11.65)08/06/2025Type 2 diabetes mellitus with hyperglycemia (ICD-10 - E11.65)08/08/2025Vision abnormalities (ICD-10 - H53.9)08/16/2025Low iron (ICD-10 - E61.1)08/28/2025Low iron (ICD-10 - E61.1)09/18/2025Sciatica (ICD-10 - M54.30) 09/26/2025Sciatica (ICD-10 - M54.30)06/20/2025lass 3 obesity (ICD-10 - E66.01) work on diet Mounjaro? 07/22/2025Right leg pain (ICD-10 - M79.604)PT toaiutpg27/19/2024Type 2 diabetes mellitus with hyperglycemia (ICD-10 - E11.65) reviewed labs repeat A1c 3m continue monitor 07/02/2025Type 2 diabetes mellitus with hyperglycemia (ICD-10 - E11.65) continue mounjaro fu 3m Patient educated on Diabetic diet... Reviewed Hypoglycemia / Hyperglycemia action plan: Instructed to call office if blood sugar above 350 or below 65 consecutively. Reviewed with patient the fci effects of Diabetes Mellitus on the body and organs. Instructed patient to check feet daily, wearsocks daily, wear proper fitting shoes, lotion feet [...] or testing, please call for dosing instructions. 06/20/2025OSA (obstructive sleep apnea) (ICD-10 - G47.33)Jacinto?06/20/2025 [facility] cardiology as rseddktqo70/04/2025Otheron Jacinto, down 5 lbs since last visit Plan Of Treatment Pending Test Test Name Order Date CMP (COMPLETE METABOLIC PANEL) 3 HEMOGLOBIN A1C (GLYCO) 11/15/2023 IRON, TOTAL 11/15/2023 LIPID PANEL (CHOL/TRIG/HDL/LDL) 11/15/20 23 CBC WITH DIFF 11/15/2023 VITAMIN D, 25 LEVEL (TOTAL) 11/15/2023 MRI Lumbar Spine w/o contrast 09/18/2025 Insulin Level 11/15/2023 CBC W/AUTO DIFF 08/28/2025 CBC W/AUTO DIFF 02/06/2025 CBC W/AUTO DIFF 08/16/2025 Covid-19 PCR (CVDTBH) 07/11/2024 GLYCOHEMOGLOBIN A1C 01/14/2025 IRON 08/16/2025 IRON 08/28/2025 XR HIP RT 2 3V W PELVIS 09/16/2025 THYROID PANEL (T4/TSH/FREE T3) 3 Next Appt Details Provider Name:Monique rutledge, 10/22/2025 04:15:00 PM, [address] [facility], [place], [address], Insurance Providers Payer Name Payer Address Payer Phone Subscriber Number Group Number Insured Name Patient Relationship to Insured Coverage Start Date Coverage End Date [employer] PPO PLUS LOCAL PLAN [address] [place] [address] [id number] Lonnie Paul Spouse - patient is the spouse of the insured 3 Medications Administered Medication Instructions Date of Administration Dosage Notes Triamcinolone 40 mg/ml mg Medical (General) History Medical History History ICD Code Vitamin D deficiency E55.9 Hypertriglyceridemia E78.1 Hypothyroid E03.9 Diabetes type 2, controlled E11.9 GERD (gastroesophageal reflux disease) K 21.9 Anxiety F41.9 Surgical History Surgery Date(Month/Year) Steroid injection in feet Lt foot modified Kidner procedure w/ posterior splint4Rt foot kidner mnifvhibl66/24Rt shoulder scope with partial removal of boneleft foot kidner procedureCHOLECYSTECTOMYHospitalization History Reason Date(Month/Year) Gallbladder
--- OUTSIDE RECORDS SUMMARY | 2025-10-01 08:44 | XMS_ITS | Clinical Summary ---
Author Organization [facility] Address [address] [place] [address] Care Team Providers Care Reconcilement Clerk Name Role Phone Unavailable Primary Care Provider Unavailabl e Allergies Active AllergyReactionsCriticalityNoted DateCommentsSulfa (Sulfonamide Antibiotics)Hives,RidvWlj1003/29/2024 Medications MedicationSigDispense QuantityRefillsLast FilledStart DateEnd DateStatus DEXCOM G7 MEDICAL OFFICER PSYCHIATRY See administration instructions.09/20/2024ctive escitalopram (Lexapro) 20 mg tablet TAKE 1/2 TABLET BY MOUTH DAILY FOR 1 WEEK THEN INCREASE TO 1 TABLET ONCE A DAY 09/06/2024ctive Lexapro 10 mg tablet 1 (one) time each day at the same time03/12/2024ctive meloxicam (Mobic) 15 mg tablet TAKE 1 TABLET BY MOUTH EVERY DAY FOR 20 DAYS04/04/2024ctive metFORMIN (Glucophage) 500 mg tablet TAKE 1 TABLET BY MOUTH TWICE A DAY WITH MEALActive omeprazole (PriLOSEC) [address] capsule TAKE 1 CAPSULE BY MOUTH EVERY DAY for 90Active oxyCODONE-acetaminophen (Percocet) 5-325 mg tablet TAKE 1 TABLET BY MOUTH EVERY 4 HOURS NEEDED FOR PAIN FOR 7 DAYS11/05/2024 Active traZODone (Desyrel) 100 mg tablet TAKE 1 TABLET BY MOUTH EVERYDAY AT BEDTIME EUPBBH3310/04/2024ctive Social History Tobacco UseTypesPacks/DayYears UsedDateSmoking Tobacco: NeverSmokeless Tobacco: NeverHumiliation, Afraid, Rape, and Kick questionnaireAnswerDate RecordedWithin the last year, have you been afraid of your partner or ex-partner?No11/26/2024 Within the last year, have you been humiliated or emotionally abused in other ways by your partner or ex-partner?No11/26/2024Within the last year, have you been kicked, hit, slapped, or otherwise physically hurt by your partner or ex-partner?No11/26/2024Within the last year, have you been raped or forced to have any kind of sexual activity by your partner or ex-partner?No11/26/2024HQ-2 AnswerDate RecordedPatient Health Questionnaire-2 Dpzyg351regnant CommentsUnknownSex and Gender InformationValueDate RecordedSex Assigned at Srufze7111/26/2024 1:21 PM ESTLegal MtcVjrwhl45/02/2024 2:56 PM ESTGender Identity Qmpgzd6611/26/2024 1:21 PM ESTSexual OrientationHeterosexual or Fvqwsfrp98/30/2024 1:21 PM EST Last Filed Vital Signs Vital SignReadingTime TakenCommentsBlood Pressure--Pulse--Temperature-- Respiratory Rate--Oxygen Saturation--Inhaled Oxygen Concentration--Wkbtuv860 kg (320 lb)11/26/2024 1:35 PM XHGQzvaxv407.5 cm (5' 2 )11/26/2024 1:35 PM ESTBody Mass Index58.5311/26/2024 1:35 PM EST Plan of Treatment Health MaintenanceDue DateLast DoneCommentsDiabetes: Hemoglobin A1C1988 Diabetes: Retinopathy Gpxczpgso60/11/1998Varicella Vaccines (1 of 2 - 13+ 2-dose series)2001Diabetes: Urine Protein Vsejtzpfl43/11/2007Pap Smear2009 Adult Lryweow3107/08/2010HPV Vaccines (1 - 3-dose SCDM series)2015Cervical Cancer Wbcvuuqmd76/11/2018HPV/Cofbam2807/08/2018Hepatitis B Vaccines (3 of 3 - 3- dose series)/, 07/19/2002COVID-19 Vaccine (2024- season)2025Influenza Vaccine (#1)2025Depression Ddevylbum72/30/2025 11/26/2024Zoster Vaccines (1 of 2)2038HIB RwccquwgBihbgemka63/21/1990IPV KvaeavfnDbeurifvj60/20/1993, 10/13/1989, 03/17/1989, Additional history exists Meningococcal B VaccineAged OutNo longer eligible based on patient's age to complete this topicMeningococcal VaccineAged OutNo longer eligible based on patient's age to complete this topicPneumococcal Vaccine: Pediatrics (0 to 5 Years) and At-Risk Patients (6 to 64 Years)Aged OutNo longer eligible based on patient's age to complete this topicRotavirus VaccinesAged OutNo longer eligible based on patient's age to complete this topic Insurance
--- OUTSIDE RECORDS SUMMARY | 2025-10-01 08:44 | XMS_ITS | Clinical Summary ---
Author Organization [facility] Address [address] [facility] [place] [address] Care Team Providers Care Marketing Database Analyst Name Role Phone Monique Razo MD Unavailable [phone] Monique Razo MD Unavailable [phone] Erich Garcia MD Primary Care Provider [phone] Jaime Woods DO Unavailable [phone] Allergies Active AllergyReactionsCriticalityNoted DateCommentsSulfa AntibioticsRash,Hives Low03/29/2024 Medications MedicationSigDispense QuantityRefillsLast FilledStart DateEnd DateStatus cholecalciferol (Vitamin D-3) 125 MCG (5000 UT) tablet 1 (one) time each day at the same time01/30/2024ctive Lexapro 10 MG tablet 1 (one) time each day at the same time03/12/2024ctive metFORMIN (Glucophage) 500 MG tablet 1 (one) time each day at the same time05/23/2023ctive omeprazole (PriLOSEC) [address] capsule TAKE 1 CAPSULE BY MOUTH EVERY DAY for 90Active traZODone (Desyrel) 50 MG tablet 1 (one) time each day at the same time03/12/2024ctive methylPREDNISolone (Medrol Dospak) 4 MG tablets Indications:Capsulitis of metatarsophalangeal (MTP) joint of right footFollow schedule on MEDROL PACK package instructions to be used as directed 21 tablet 5Active methylPREDNISolone (Medrol Dospak) 4 MG tablets Indications:Capsulitis of metatarsophalangeal (MTP) joint of right footFollow schedule on MEDROL PACK package instructions to be used as directed 21 tablet 51Discontinued(Therapy completed) Active Problems ProblemNoted DateDiagnosed DateAcid lrudrr5407/21/20243176Qpcgyda15/24/2024iabetes mellitus without apezlquopzpk49/24/9805Flapkdhb69/24/2024Vitamin D deficiency 07/21/2024 Encounters DateTypeDepartmentCare KiwqJywebnexgrj74/23/2025bstract [facility] [address] [place] [address] Pato Koehler DPM 09/10/2025bstract [facility] [address] [facility] [address] [place] [address] Pato Koehler DPM 09/05/2025 10:40 AM EDTOffice Visit [facility] [address] [address] Pato Koehler DPM Capsulitis of metatarsophalangeal (MTP) joint of right foot (Primary Dx); Contracture of right ankle; Posterior tibial tendonitis of right leg09/05/2025bstract [facility] [address] [address] Pato Koehler DPM 09/05/2025amboo flowsheet [facility] [address] [address] Pato Koehler DPM 09/05/20254881Ofslkz57/07/9316Hqsuxk53/21/2025Travelfrom Last 3 Months Immunizations ImmunizationAdministration DatesNext EnuWKX1304/16/1993,10/13/1989,05/11/1989, 03/17/1989,1988Hep B, Adolescent or Hpizbpacn84/22/2002HiB, unspecified 05/18/1990MMR07/19/2002,10/13/1989OPV04/16/1993,10/13/1989,03/17/1989,1988 Family History Medical HistoryRelationNameCommentsArthritisMotherKathyDiabetesMotherKathyHeart failureMotherKathyHypertensionMotherKathySeizuresSisterTiaRelationNameStatus CommentsFatherAliveMotherKathyDeceasedSisterTia Social History Tobacco UseTypesPacks/DayYears UsedDateSmoking Tobacco: NeverPassive Smoke Exposure: NeverSmokeless Tobacco: Never Tobacco Cessation:Counseling Given: Yes Alcohol UseStandard Drinks/WeekCommentsNever0 (1 standard drink = 0.6 oz pure alcohol)CommentsUnknownSex and Gender InformationValueDate RecordedSex Assigned at BirthNot on fileLegal CsaAgacaj49/15/2023 7:10 PM EDTGender Identity Not on fileSexual OrientationNot on file Last Filed Vital Signs Vital SignReadingTime TakenCommentsBlood Dicprwse432/7911 2:48 PM EST Izcwh4594 2:48 PM ESTTemperature--Respiratory Xwiv2427 9:58 AM EDTOxygen Saturation--Inhaled Oxygen Concentration--Wzxnbt587 kg (310 lb) 09/05/2025 9:58 AM RXTCrvprx929.5 cm (5' 2 )09/05/2025 9:58 AM EDTBody Mass Index56.710 9:58 AM EDT Plan of Treatment Not on file Insurance Care Teams Team MemberRelationshipSpecialtyStart DateEnd Erich Garcia MD [address] [place] [address] PCP - GeneralFamily Medicine07/24/24 [place] [address] [place] [address] Referring PhysicianFamily Medicine03/29/24 [place] [address] [place] [address] Referring PhysicianFamily Medicine07/24/24 Jaime Woods DO [address] [place] [address] Otolaryngology07/24/24
--- OUTSIDE RECORDS SUMMARY | 2025-10-01 08:44 | XMS_ITS | Patient Health Record ---
Author Organization [facility] Address [address] [place] [address] Care Team Providers Care General Adjuster Name Role Phone Gaurav Snyder Unavailable [phone] shadeLuisyoliGloria modi Unavailable [phone] Allergies Allergen (clinical drug ingredient) Drug/Non Drug Allergy documented on EMR Reaction Allergy Type Onset Date Status SULFA (uncoded)hivesAllergyActive Results Component Value Reference Range Notes HGB A1C Reviewed date:02/07/2025 11:57:30 AM Interpretation: Performing Lab: Notes/Report: Hgb A1c 6.6 SCC- PT/OT EVAL AND TREAT 3X/WEEK FOR 6 WEEKS Reviewed date:12/04/2024 03:27:33 PM Interpretation: Performing Lab: Notes/Report: Chem 8, Venous Reviewed date:12/04/2024 02:43:47 PM Interpretation: Performing Lab: Notes/Report: Hemoglobin Reviewed date:12/04/2024 02:43:30 PM Interpretation: Performing Lab: Notes/Report: Surgery Scheduling Reviewed date:12/04/2024 02:43:39 PM Interpretation: Performing Lab: Notes/Report: Social Sec number:[id number] Insurance Company:[employer] [facility] & Time: 11/05/24Surgery End Time:ONE HOURProcedure:RIGHT SHOULDER ARTHROSCOPIC DISTAL CLAVICLE EXCISION, POSSIBLE OPEN,Diagnosis:RIGHT AC JOINT ARTHRITISAdmission Type:OUTPATIENTAnesthesia Type/CPNB:GENERALPost-op Appointment Date:1 WEEKLatex AllergyNOLab [facility]uler:MONICACBC with diff, BMP, EKG Reviewed date:12/04/2024 02:43:58 PM Interpretation: Performing Lab: Notes/Report: Reason For Referral Reason APPROVED ........... .....PLEASE OBTAIN AUTHORIZATION FOR RIGHT SHOULDER ARTHROSCOPIC DISTAL CLAVICLE EXCISION, POSSIBLE OPEN Jose Martin 10/15/2024 11:33:47 AM >Cpt [place] 0[address]32 [place] [address] Diagnosis 1 Arthritis of right a cromioclavicular joint (M19.011) Referral Organization [facility] Referring Provider First Name Gaurav Referring Provider Last Name Lillian Referring Provider Speciality Orthopedic Surgery Referred Organization [facility] Referred Address [address] [place], [place],[address], General Notes Vilma Meléndez 024 11:19:13 AM >NEED SX CODE Mario TERRY Chad 10/15/2024 11:33:47 AM >Cpt [place] 07013 [place] [address], Vilma Meléndez 10/18/2024 11:53:48 AM >APPROVED PER [employer] AUTH #[id number] VALID 10/18/2024-01/18/2025 COPY IN CHART MA NOTIFIED REF [facility] Priority Routine Medications Medication SIG (Take, Route, Frequency, Duration) Notes Start Date End Date Status celecoxib 200 mg 1 cap(s) orally once a day for 30 days 5Active Social History Tobacco Use: Social History Observation Description Date Details (start date - stop date) Never Smoker NA - NA AUDIT-C (Standard) Question Answer Notes Did you have a drink containing alcohol in the p ast year? No Camazb5KmtmpqbkphtfhoMujqieinNhwckha Control (Standard) Question Answer Notes Tobacco use: Nonsmoker Problems Problem Type SNOMED Code ICD Code Onset Dates Problem Status W/U Status Risk Notes Problem [id number] Primary osteoarthritis of right shoulder (M19.011) JpmyqmflicsicrbVdirjlk271711886Itxemcjzk for other orthopedic aftercare (Z47.89) Activeconfirmed Vital Signs Height 5'1 in 03/18/2025 Rcijbv035 lbs5BMI61. Encounters Encounter Location Date Provider Diagnosis [facility] Office [address] [place] [address] [address] [place] [address] 10/15/2024 Gaurav Snyder Arthritis of right acromioclavicular joint M19.011 [facility] [address] [place] [address] 11/05/2024 Gaurav Lillian Arthritis of right acromioclavicular joint M19.011 [facility] [address] [place] [address] 11/12/2024 Gaurav Snyder Encounter for other orthopedic aftercare Z47.89 [facility] [address] [place] [address] [place] [address] 12/17/2024 Gloria [facility] Arthritis of right acromioclavicular joint M19.011 [facility] [address] [place] [address] 01/28/2025 [facility] Encounter for other orthopedic aftercare Z47.89 [facility] [address] [place] [address] 02/11/2025 [facility] Primary osteoarthritis of right shoulder M19.011 [facility] [address] [place] [address] [place] [address] 03/18/2025 Gloria [facility] Arthritis of right acromioclavicular joint M19.011 [facility] [address] [place] [address] 02/04/2025 Gloria [facility] Assessments Encounter Date Diagnosis (ICD Code) Assessment Notes Treatment Notes Treatment Clinical Notes Section Notes 10/15/2024 Arthritis of right acromioclavic ular joint (ICD-10 - M19.011) 11/05/2024rthritis of right acromioclavicular joint (ICD-10 - M19.011) 11/12/2024Encounter for other orthopedic aftercare (ICD-10 - Z47.89)12/17/2024 Arthritis of right acromioclavicular joint (ICD-10 - M19.011)01/28/2025Encounter for other orthopedic aftercare (ICD-10 - Z47.89)02/11/2025Primary osteoarthritis of right shoulder (ICD-10 - M19.011)03/18/2025rthritis of right acromioclavicular joint (ICD-10 - M19.011) Right rotator cuff tendinitis/bursitis 4+ months status post right distal clavicle excision 10/15/2024Other For her right shoulder AC joint arthritis that is failed extensive conservative treatment she wouldlike to proceed with right shoulder arthroscopic distal clavicle excision. We have discussed the possible need for this to be an open procedure. I discussed risks of surgery as being a 30 to 40% chance of persistent postoperative pain with no improvement in symptoms. We have gone through additionalrisks and the informed consent process which she understands and has elected to proceed with. Import medication 11/12/2024Other Patient is doing well after distal clavicle excision. I reviewed exercises with her to start working on range of motion. She will start therapy in 3 weeks. She will slowly wean out of the sling. She will follow-up in 4 weeks to reassess her progress. She will come in next week for a suture removal and Steri-Strip placement. Import medication 12/17/2024OtherPatient continues to improve postoperatively and will continue with physical therapy. She does workat [employer] and has to lift sometimes 50 pounds, we will revisit her return to work readiness at her next appointment. We discussed continuing to limit push/pull/lift activities as tolerated. We willsee her back in 6 weeks to reassess her progress.01/28/2025OtherThe patient is having some increased pain today that may be from relying more on her arm after having an accessory navicular removal from her right ankle that she is nonweightbearing on today. I willhave her take a break from physical therapy and have placed her on Celebrex. Medication precautionsreviewed. She states she did get fired from [employer] so is currently unemployed. We will see her back in 6 weeks for reevaluation.02/11/2025OtherToday we discussed risk/benefits of subacromial corticosteroid injection. Patient's A1c is 6.6. Patient wished to proceed and I did provide this for her today. We will see her back at her regularly scheduled follow-up appointment.03/18/2025OtherPatient is doing well after subacromial injection. We discussed activity modification as needed. I am going to give her a note to work without restrictions. We will see her back on a as needed basis. Right rotator cuff tendinitis/bursitis 4+ months status post right distal clavicle excision Plan Of Treatment Pending Test Test Name Order Date H A1C 04/16/2024 Insurance Providers Payer Name Payer Address Payer Phone Subscriber Number Group Number Insured Name Patient Relationship to Insured Coverage Start Date Coverage End Date [facility] [address] [place] [address] [id number] DELORES ROCHE Spouse - patient is the spouse of the insured Medications Administered Medication Instructions Date of Administration Dosage Notes BUPIVACAINE pSHIHLTUIUPNG90/21/20241 pCVHNEHIPBGAM82/17/20252 mLDepo-Medrol mLDepo-Yflqmj02 mLDepo-Izmocj48 mLlidocaine fObavzpdhuv17/21/20241 wGohltdcvip56/17/20252 mL Medical (General) History Surgical History Surgery Date(Month/Year) Arthroscopic right shoulder distal clavi david excision 11/05/2024
--- NOTE | 2025-10-01 08:46 | MR_ITS ---
The [address] [address] Patient Name: NOEL ROCHE MRN: [id number] date: 1990 Sex: F Assigned Patient Location: MRI Current Patient Location: MRI Accession/Order Number: [id number] Exam Date: 10/01/2025 08:52 Report Date: 10/01/2025 14:23 At the request of: GUERRERO EMMANUEL Procedure: MR lumbar spine wo con MR lumbar spine wo con 10/01/2025 9:37 AM SIGNS AND SYMPTOMS: Chronic low back pain radiating into right hip PROTOCOL: Multiplanar multisequence MR images of the lumbar spine without IV contrast COMPARISON: None. FINDINGS: The bones of the lumbar spine are in anatomic alignment. There is preservation of vertebral body heights and intervertebral disc spaces. The marrow signal is within normal limits. The conus terminates at the inferior endplate of the L1 vertebral body level. No epidural or paraspinous fluid collection is appreciated. At T12-L1: There is a normal disc, central canal, and neural foramen. At L1-L2: There is a normal disc, central canal, and neural foramen. At L2-L3: There is a normal disc, central canal, and neural foramen. At L3-L4: There is a normal disc, central canal, and neural foramen. At L4-L5: There is a mild broad-based disc bulge with facet hypertrophy. There is mild spinal canal stenosis with mild bilateral neural foraminal narrowing. At L5-S1: There is a mild broad-based disc bulge. There is mild spinal canal narrowing with mild bilateral neural foraminal narrowing. MR/MR lumbar spine wo con IMPRESSION: At L4-L5: There is a mild broad-based disc bulge with facet hypertrophy. There is mild spinal canal stenosis with mild bilateral neural foraminal narrowing. At L5-S1: There is a mild broad-based disc bulge. There is mild spinal canal narrowing with mild bilateral neural foraminal narrowing. Impression dictated by: Fermín Wilks M.D. 10/01/2025 2:23 PM Dictation Location: [place] [address] Electronically authenticated by: [id number] Y Date: 10/01/2025 14:23
--- OUTSIDE RECORDS SUMMARY | 2025-10-01 08:49 | XMS_ITS | Encounter Summary ---
Author Organization [facility] Address [address] [place] [address] Care Team Providers Care Precision Structural Metal Fitter Name Role Phone Monique Razo MD Unavailable [phone] Monique Razo MD Unavailable [phone] Erich Garcia MD Primary Care Provider [phone] Jaime Woods DO Unavailable [phone] Encounter Details DateTypeDepartmentCare Team (Latest Contact Info)Cxshybxkojp65/23/2025bstract [facility] [address] [place] [address] Pato Koehler, DPM [address] [address] Social History Tobacco UseTypesPacks/DayYears UsedDateSmoking Tobacco: NeverPassive Smoke Exposure: NeverSmokeless Tobacco: NeverAlcohol UseStandard Drinks/WeekComments Never0 (1 standard drink = 0.6 oz pure alcohol)CommentsUnknownSex and Gender InformationValueDate RecordedSex Assigned at BirthNot on fileLegal Sex Omllyj8502/09/2023 7:10 PM EDTGender IdentityNot on fileSexual OrientationNot on filedocumented as of this encounter Plan of Treatment Not on file documented as of this encounter Visit Diagnoses Not on filedocumented in this encounter Care Teams Team MemberRelationshipSpecialtyStart DateEnd Date Erich Garcia MD [address] [place] [address] PCP - GeneralFamily Medicine07/24/24 Monique Razo MD [address] [place] [address] Referring PhysicianFamily Medicine03/29/24 Monique Razo MD [address] [place] [address] Referring PhysicianFamily Medicine07/24/24 Jaime Woods DO [address] [place] [address] Otolaryngology07/24/24documented as of this encounter
--- OUTSIDE RECORDS SUMMARY | 2025-10-01 08:49 | XMS_ITS | Clinical Summary ---
Author Organization [facility] Address [address] [place] [address] Care Team Providers Care Drywall Worker Name Role Phone Monique Razo CNP Primary Care Provider [phone] Allergies Active AllergyReactionsCriticalityNoted DateCommentsSulfa (Sulfonamide Antibiotics)Hives,IewzRsi4103/29/2024 Medications MedicationSigDispense QuantityRefillsLast FilledStart DateEnd DateStatus DEXCOM G7 ALTERATIONS TAILOR misc as directed.09/20/2024ctive DEXCOM G7 SENSOR [place]uin 5Active DEXCOM G6 TRANSMITTER [place] as directed.09/03/2024ctive cholecalciferol (VITAMIN D3) 5,000 unit tab Take 5,000 Units by mouth once daily.Active escitalopram oxalate (LEXAPRO) 20 mg tablet TAKE 1/2 TABLET BY MOUTH ONCE A DAY FOR 1 WEEK THEN 1 TABLET ONCE A DAYActive glipiZIDE (GLUCOTROL) 5 mg tablet 5Active metFORMIN (GLUCOPHAGE) 500 mg tablet TAKE 1 TABLET BY MOUTH TWICE A DAY WITH MEAL08/28/2022ctive omeprazole (PRILOSEC) 20 mg capsule TAKE 1 CAPSULE BY MOUTH EVERY DAY for ctive oxyCODONE-acetaminophen (PERCOCET) 5-325 mg tablet Take 1 tablet by mouth every 6 hours as needed.Active traZODone (DESYREL) 100 mg tablet TAKE 1 TABLET BY MOUTH EVERYDAY AT BEDTIME NBXLNY4710/04/2024ctive aspirin 325 mg tablet Indications:Accessory navicular bone of right footTake 1 tablet by mouth once daily. 45 tablet 5Active keTORolac (TORADOL) 10 mg tablet Take 1 tablet by mouth every 6 hours as needed. with food. 20 tablet 01/02/2025tive Active Problems ProblemNoted DateDiagnosed DateArthritis of right acromioclavicular joint 5BMI 60.0-69.9, adult12/28/2024 Assessment & Plan (12/28/2024 10:05 AM EST): Assessment: diet and exercise encouraged BMI 62 AQUILES (obstructive sleep apnea)12/28/2024 Assessment & Plan (12/28/2024 10:06 AM EST): Assessment: does not have CPAP yet Acid hdybla0307/21/2024 Assessment & Plan (12/28/2024 10:04 AM EST): Assessment: managed with med, stable Follows up with PCP Eqodkmz5507/21/2024iabetes mellitus without whyqzbaqnkdv89/24/2024 Overview (12/26/2024): Type 2 Assessment & Plan (12/28/2024 10:08 AM EST): Assessment: managed with oral med, stable Follows up with PCP BG at home 120's HgbA1c 6.6% Vitamin D rbivmwosmu42/24/2024 Encounters DateTypeDepartmentCare VtyiCkxeyxxdbsm46/07/2025 8:30 AM EDTOffice Visit Orthopaedics [address] [place] [phone] Melvin June W, DPM S/P foot surgery, right (Primary Dx); Chronic pain of right ankle09/03/20254856Mduovc55/05/2025Travelfrom Last 3 Months Social History Tobacco UseTypesPacks/DayYears UsedDateSmoking Tobacco: NeverSmokeless Tobacco: Never Tobacco Cessation:Counseling Given: Not Answered Alcohol UseStandard Drinks/WeekCommentsNever0 (1 standard drink = 0.6 oz pure alcohol)PHQ-2AnswerDate RecordedPHQ-2 nwpxp349rea Deprivation Index AnswerDate RecordedNational Score (1-100), lower number is lower risk86 12/12/2024State Score (1-10), lower number is lower atqe64912/12/2024Data from: https://www.neighborhoodatlas.medicine.[facility].edu/. Last address used for ovzahiwrxxm535Farrukh Montez12/12/2024CommentsUnknownSex and Gender InformationValueDate RecordedSex Assigned at BirthNot on fileLegal SexFemale 02/24/2016 12:17 PM EDTGender IdentityNot on fileSexual OrientationNot on file Last Filed Vital Signs Vital SignReadingTime TakenCommentsBlood Lcbpepju221/66012/31/2024 10:10 AM EST Wprwq003612/31/2024 10:10 AM EAZRvlkwrjuqwk93.4 ??C (97.6 ??F)12/31/2024 11:07 AM ESTRespiratory Otcw732912/31/2024 11:00 AM ESTOxygen Whdvnxqeib18%12/31/2024 10:10 AM ESTInhaled Oxygen Concentration--Rlwqjp083.9 kg (339 lb 4.6 oz)12/28/2024 9:54 AM UYZFetzrg290.5 cm (5' 2 )12/28/2024 9:54 AM ESTBody Mass Index62.06 12/28/2024 9:54 AM EST Plan of Treatment Health MaintenanceDue DateLast RdvfRdobplxeQbH0E70/11/1993Diabetic Foot Exam 1998Dilated Retinal Exam1998Urine Albumin:Creatinine Ratio1998 DTaP,Tdap,Td Vaccine (6 - Tdap), 10/13/1989, 05/11/1989, Additional history existsAnnual PCP Team Chronic Disease Visit2006 Depression Txvaqbifw17/11/2006HIV Sslvbctpy57/11/2006Hepatitis C Screening 2006LDL Mpuhhlgquqf23/11/2006Pneumococcal Vaccine (1 of 2 - PCV)2007 Cervical Cancer Ynywpvxmd40/11/2009HPV Vaccine (1 - 3-dose SCDM series) 2015Covid-19 Vaccine ( - 2024- season)2025Influenza Vaccine (#1) 2025Hepatitis B WfqimmpWcydgzamd44/23/2025, 08/16/2024, 07/19/2002 Medical Devices ImplantedTypeAreaManufacturerDevice IdentifierShelf Expiration DateModel / Serial / LotAnchor Suturetak Fiberwire 1 .5 [place] 2 [employer] 26.2mm Suture - [id number] Implanted:Qty: 1 on 12/31[facility] AnchorRight: Bone - Foot [id number] / / [id number] Insurance Care Teams Team MemberRelationshipSpecialtyStart DateEnd Date Monique Razo CNP [address] [place] [id number] PCP - GeneralInternal Medicine1/20/25
--- OUTSIDE RECORDS SUMMARY | 2025-10-01 08:49 | XMS_ITS | Patient Health Record ---
Author Organization [facility] Address [address] [place] [address], [place] [address] Care Team Providers Care Occupational Health Nurse Manager Name Role Phone Monique Razo CNP Primary Care Provider Unavail able EldaRafy alberts Unavailable [phone] Allergies Allergen (clinical drug ingredient) Drug/Non Drug Allergy documented on EMR Reaction Allergy Type Onset Date Status Substance with sulfonamide s tructure and antibacterial mechanism of action (substance) Sulfa Antibiotics hives Drug Allergy Active Reason For Referral No Information Medications Medication SIG (Take, Route, Frequency, Duration) Notes Start Date End Date Status glipiZIDE 5 MG Tablet Oral; Duration: 90 Days ActivemetFORMIN HCl 500 MG TabletOral; Duration: 90 DaysActiveLexaproActive traZODone HCl 100 MG TabletOral; Duration: 90 DaysActive Social History Sex Assigned At : Social History Observation Description Sex Assigned At Female Section Notes: Patient is a nonsmoker. No alcohol use. Patient is a nonsmoker. No alcohol use. Encounters Encounter [facility] Date [facility] [address] [address] [facility]25 Rafy Burdick Posterior tibial tendon dysfunction, right M76.[address] [address] 08/19/2025 Rafy Burdick Posterior tibial tendon dysfunction, right M76.821 Assessments Encounter Date Diagnosis (ICD Code) Assessment Notes Treatment Notes Treatment Clinical Notes Section Notes 06/14/2025 Posterior tibial tendon dysfunct ion, right (ICD-10 - M76.821) Persistent pain, swelling, and weakness in the foot and ankle following two surgeries on the posterior tibial tendon. Recovery has been slower than expected compared to previous contralateral surgery. Patient has tried braces, casts, and nightly ibuprofen PM for pain with limited improvement. Physical therapy was previously stopped due to aggravation of symptoms[facility]. Patient is frustrated [...] over the next 6 to 8 weeks. 08/19/2025Posterior tibial tendon dysfunction, right (ICD-10 - M76.821) I had a lengthy discussion with Kyung today who again relates she is pursuing care home disability. I related to her after undergoing two surgeries for the same issue in a short period of time will increase her time of maximal medical benefit. I do not believe she is fully recovered nor do I believeat this moment in time she is permanently disabled. She or her family has stopped in the office since last apt asking for me to fill out paperwork for permanent disability and I again explained that I do not fill out paperwork for permanent disabilityespecially when I am not the treating surgeon. [...] needs to obtain her imaging records for [facility](ie MRI and xrays) if she wants to continue to follow with me. Plan Of Treatment Next Appt Details Provider Name:Rafy mitchell, 11/18/2025 09:00:00 AM, [address] [facility], [address], [address], [place], [address], Insurance Providers Payer Name Payer Address Payer Phone Subscriber Number Group Number Insured Name Patient Relationship to Insured Coverage Start Date Coverage End Date [facility] FEP [address] [place] [address] [id number] Paty Paul - patient is the spouse of the insured Medical (General) History Medical History History ICD Code Anemia DiabetesGERDSurgical History Surgery Date(Month/Year) Right Accessory navicular bone removed t hen revision surgery on it Left Foot Accessory navicular bone removalGallbladderShoulder SurgeryRight Accessory navicular bone removed then revision surgery on itLeft Foot Accessory navicular bone removalGallbladderShoulder SurgeryLeft excision of accessory navicular [address] KoehlerRight excision of accessory navicular September [address] Koehleright excision of accessory navicular December [address] June12/2024
--- OUTSIDE RECORDS SUMMARY | 2025-10-01 08:50 | XMS_ITS | CCD ---
Author Organization [facility] Care Team Providers Care Divorce Attorney Name Role Phone Monique Dudley Unavailable MONIQUE EMMANUEL Attending Unavailable LIEN, MONIQUE Primary Care Unavailable LIEN, MONIQUE Admitting Unavailable LIEN, MONIQUE Admitting Unavailable LIEN, MONIQUE Attending Unavailable LIEN, MONIQUE Consulting Unavailable LIEN, MONIQUE Primary Care Unavailable LIEN, MONIQUE Admitting Unavailable LIEN, MONIQUE Attending Unavailable ILEN, MONIQUE Consulting Unavailable LIEN, MONIQUE Primary Care [...] DR LEE LISTED Primary Care Unavaila ble ITA ., DR COPPOLA Attending Unavailable BRIDGETTE ., SUNIL FAITH Consulting Unavailsandra Dudley NP-C Monique Attending Provider [phone] LORI Emmanuel Primary Care Provider [phone] MONIQUE EMMANUEL Primary Care Physician [phone] Pato Avelar Referring Unavailable Pato Avelar Attending Unavailable Pato Avelar Admitting Unavailable SHITAL Avelar Attending Provider PATO AVELAR Attending Unavailable PATO AVELAR Attending Unavailable PATO AVELAR Attending Unavailable PATO AVELAR Attending Unavailable PATO AVELAR Attending Unavailable PATO AVELAR Attending Unavailable Lien LONG, Monique Unavailable Lien LONG, Monique Unavailable Jose LONG, Erich Barraza Primary Care Provider Jaime Woods DO Unavailable Rodo, DPMadi Johnson Attending Unavailabl e Brown, DPM Pato A Admitting Unavailabl e Brown, DPM Pato A Attending Unavailabl e Brown, DPM Pato A Referring Unavailabl e Brown, DPM Apto A Admitting Unavailabl e Unallocated MD, Noms Provider Primary Care Provi anna Unallocated MD, Noms Provider Primary Care Provi anna ELATTAR, OSAMA Referring Unavailable ELATTAR, OSAMA Referring Unavailable PATO AVELAR Referring Unavailable ELATTAR, OSAMA Attending Unavailable Unavailable Primary Care Provider Unavailsandra e Monique Emmanuel CNP S Primary Care Provider Lien MUD ANALYSIS OPERATOR-C, Monique Vargas Primary Care Provider Marek Dennis DO Emergency Provider Neo Mclaughlin MD Admit Provider Neo Mclaughlin MD Attending Provider Maryanne Unger RN Other Provider Unavailable Balaji Cohen MD Other Provider Kvng Carcamo MD Other Provider [phone] Inge Adler MD Attending Provider Inge Adler MD Other Provider Merry Nieves APRN Other Provider [phone] Mitch Galaviz MD Other Provider Monique Emmanuel Primary Care Unavailable Neo Mclaughlin Admitting Unavailable Maryanne Unger Consulting Unavailable Mitch Galaviz Attending Unavailab le Maryanne Unger Consulting Unavailable Balaji Cohen Consulting Unavailable Kvng Carcamo Consulting [place] Adler, Inge Consulting Unavailable [place] Consulting Unavailable LIEN, MONIQUE S Primary Care [...] Care Unavailable SEAN MATA Referring Unavailab le SEPERANZASEAN Attending Unavailab le ESPERANZASEAN Admitting Unavailab le ESPERANZASEAN Referring Unavailab le ESPERANZASEAN Attending Unavailab le LIEN, MONIQUE S Primary Care Unavailable SEAN MATA Referring Unavailab le LIEN, MONIQUE S Primary Care Unavailable SEAN MATA Attending Unavailab sera Garcia MD, Erich Barraza Primary Care Provider [phone] PATO AVELAR Attending Unavailable PATO AVELAR Attending Unavailable PATO AVELAR Attending Unavailable PATO AVELAR Referring Unavailable PATO AVELAR Attending Unavailable PATO AVELAR Attending Unavailable PATO AVELAR Attending Unavailable PATO AVELAR Attending Unavailable Allergies Allergy ClassificationReported Allergen(s)Allergy TypeDate of OnsetReaction(s) Facility (1 source)Egg proteinDrug allergyShorePoint Health Pun[facility] Feedlook[facility] Other (1 source)Sulf-10Drug allergyhiLake Regional Health System Feedlook[facility] Other (1 source)Sulfonamides (Antibiotic)Drug allergy (disorder)68-60-3189NcuSelect [facility] [place] [facility] (20 sources)Sulfonamides (Antibiotic); Translations: [SULFA (SULFONAMIDE ANTIBIOTICS)]Allergy to twhdwspfi08-98-9204[facility] (8 sources)Egg Derived; Translations: [Egg Derived]Allergy to substance 92-59-1449eikzlVrkkjkjfqSelect Medical [facility] [place] (5 sources)Sulfonamides (Antibiotic); Translations: [sulfa drugs]Drug allergy [facility] (20 sources)Sulfonamides (Antibiotic)Drug Owewwag48-42-0945TihtChristian [facility] Medications Current Medications MedicationDrug Class(es)DatesSig (Normalized)Sig (Original)acetaminophen 325 mg / HYDROcodone bitartrate 5 mg oral tablet (2 sources)Opioid AgonistStart: 08-30-2024 End: 72-27-2436hmiq 1 tablet by mouth every eight hours as needed for pain HYDROcodone-acetaminophen (Coker) 5-325 MG tablet Indications: Pain Take 1 tablet by mouth every 8 (eight) hours if needed for moderate pain (PRN pain) for up to 5 days 15 tablet 08/30/2024 09/04/2024 Activeacetaminophen 325 mg / oxyCODONE hydrochloride 5 mg oral tablet (20 sources)Opioid AgonistStart: 12-31-2024 End: 29-52-8855tlob 1 tablet by mouth every six hours as needed for pain oxyCODONE-acetaminophen (PERCOCET) 5-325 mg tablet Indications: Accessory navicular bone of right foot , Post-op pain Take 1 tablet by mouth every 6 hours as needed for pain for up to 5 days. 20 tablet 12/31/2024 01/05/2025 Active Start: 10-24-2024 End: 40-99-8887toga 1 tablet by mouth every eight hours for painoxyCODONE- acetaminophen (Percocet) 5-325 MG tablet Indications: Pain Take 1 tablet by mouth every 8(eight) hours if needed for severe pain for up to 5 days 15 tablet 10/24/2024 10/29/2024 ActiveStart: 09-07-2024 End: 86-89-0662lcoi 1 tablet by mouth every eight hours for painoxyCODONE- acetaminophen (Percocet) 5-325 MG tablet Indications: Pain Take 1 tablet by mouth every 8(eight) hours if needed for severe pain for up to 5 days 15 tablet 09/07/2024 09/12/2024 ActiveBlood-Glucose Sensor (Dexcom G7 Sensor) device (4 sources)Start: 81-48-6375Kaayk-Glucose Sensor (Dexcom G7 Sensor) device Active EACH .ROUTE .MEDSUPPLY February 05, 2025 12:00am As directedBlood- Glucose Transmitter (Dexcom G6 Transmitter) device (4 sources)Start: 18-44-3923Dzeqn-Glucose Transmitter (Dexcom G6 Transmitter) device Active EACH .ROUTE .MEDSUPPLY February 05, 2025 12:00am As directed cholecalciferol 0.125 mg oral tablet (20 sources)Vitamin DStart: 83-78-3452kpbjbgeefevlwav (Vitamin D-3) 125 MCG (5000 UT) tablet 1 (one) time each day at the same time 01/30/2024 Activetake 1 tablet by mouth once dailycholecalciferol (VITAMIN D3) 5,000 unit tab Take 5,000 Units by mouth once daily. ActiveDEXCOM G6 TRANSMITTER eduin (20 sources)Start: 42-65-7519SSMKBA G6 TRANSMITTER eduin as directed. 09/03/2024 ActiveDEXCOM G7 LEATHER CARTRIDGE BELT MAKER misc (20 sources)Start: 22-51-1748FOFTJT G7 LEATHER 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 09/20/2024 ActiveDEXCOM G7 SENSOR eduin (20 sources)Start: 50-80-1259NIJIEW G7 SENSOR eduin 12/12/2024 Activeescitalopram 20 mg oral tablet (20 sources)Serotonin Reuptake InhibitorStart: 90-96-1448rtcj 1 tablet by mouth once dailyEscitalopram Oxalate 20 mg tablet Active 20 MG PO Daily June 15, 2025 12:00am Complies with drug therapyStart: 04-25-2024 End: 49-27-1221fgwz 1 tablet by mouth once dailyEscitalopram Oxalate 20 mg tablet Discontinued 20 MG PO Daily May 16, 2024 12:00am February 05, 2025 4:47pmStart: 48-55-2291Axvwbnc 10 MG tablet 1 (one) time each day at the same time 03/12/2024 Activetake 0.5 tablet by mouth once daily, then take 1 tablet by mouth once dailyescitalopram oxalate (LEXAPRO) 20 mg tablet TAKE 1/2 TABLET BY MOUTH ONCE A DAY FOR 1 WEEK THEN 1 TABLET ONCE A DAY Activeferrous sulfate 325 mg oral tablet (3 sources)Start: 18-30-0919njcw 1 tablet by mouth three times weeklyFerrous Sulfate 325 mg (65 mg iron) tablet Active 325 MG PO .three times a week June 15, 2025 12:00am Complies with drug therapyglipiZIDE 5 mg oral tablet (20 sources)SulfonylureaStart: 58-05-6154ysdz 1 tablet by mouth once daily Glipizide 5 mg tablet Active 5 MG PO Daily February 05, 2025 12:00am Complies with drug therapyketorolac tromethamine 10 mg oral tablet (20 sources)Nonsteroidal Anti-inflammatory Drug, Cyclooxygenase InhibitorStart: 62-51-6439hkps 1 tablet by mouth every six hours as neededkeTORolac (TORADOL) 10 mg tablet Take 1 tablet by mouth every 6 hours as needed. with food. 20 tablet 01/02/2025 ActivemetFORMIN hydrochloride 500 mg oral tablet (20 sources)BiguanideStart: 29-04-2654dueRUERYM (Glucophage) 500 MG tablet 1 (one) time each day at the same time 05/23/2023 ActiveStart: 34-68-6042bbmp 1 tablet by mouth twice dailyMetformin 500 mg tablet Active 500 MG PO Twice daily February 27, 2024 12:00am Complies with drug therapymethylPREDNISolone (10 sources)CorticosteroidStart: 07-32-3304jaejzoCISISGPhtfuw (Medrol Dospak) 4 MG tablets Indications: Capsulitis of metatarsophalangeal (MTP) joint of right foot Follow schedule on MEDROL PACK package instructions to be used as directed 21 tablet 09/05/2025 ActiveStart: 03-07-2025 End: 98-73-7533xooqcvZWFXVSJpcveg (Medrol Dospak) 4 MG tablets Indications: Capsulitis of metatarsophalangeal (MTP) joint of right foot Follow schedule on MEDROL PACK package instructions to be used as directed 21 tablet 03/07/2025 09/05/2025 Discontinued (Therapy completed)Start: 56-48-5231xovlphMHSAROYkpaqc (Medrol Dospak) 4 MG tablets Indications: Capsulitis of metatarsophalangeal (MTP) joint of right foot Follow schedule on MEDROL PACK package instructions to be used as directed 21 tablet 03/07/2025 Activeomeprazole 20 mg delayed release oral capsule (20 sources)Proton Pump InhibitorStart: 64-68-5176sudu 1 capsule by mouth once dailyOmeprazole 20 mg capsule,delayed release(DR/EC) Active 20 MG PO Daily February 27, 2024 12:00am Complies with drug therapypromethazine hydrochloride 12.5 mg oral tablet (4 sources)PhenothiazineStart: 12-31-2024 End: 54-46-1202lomm 1 tablet by mouth every eight hours as neededpromethazine (PHENERGAN) 12.5 mg tablet Indications: Accessory navicular bone of right foot , Post-op pain Take 1 tablet by mouth every 8 hours as needed for up to 10 days. 30 tablet 12/31/2024 01/10/2025 ActiveTirzepatide (1 source)Start: 77-84-3361Peytbwypnla (Mounjaro) 2.5 mg/0.5 mL pen injector Active 2.5 MG SUBCUT every week July 082:00am Complies with drug therapytraZODone hydrochloride 100 mg oral tablet (20 sources)Serotonin Reuptake InhibitorStart: 53-47-3362aasr 1 tablet by mouth once daily at bedtimeTrazodone 100 mg tablet Active 100 MG PO Daily at bedtime February 05, 2025 12:00am Complies with drug therapyStart: 16-91-7971qskt 100 mg by mouth once daily at bedtimeTrazodone Active 100 MG PO Daily at bedtime May 16, 2024 12:00amStart: 04-25-2024 End: 68-89-4343yjyh 2 tablets by mouth once daily at bedtimeTrazodone 50 mg tablet Discontinued 100 MG PO Daily at bedtime May 16, 2024 12:00am February 05, 2025 4:46pmStart: 13-71-0515litZMTyrp (Desyrel) 50 MG tablet 1 (one) time each day at the same time 03/12/2024 ActiveUniversal Sling (3 sources)Start: 40-39-4241Nqjrcofti Sling Active 0 .Route 1 February 27, 2024 12:00am As directedUniversal Sling unit (4 sources)Start: 70-24-5028Rpgqbgrip Sling unit Active 0 .Route 1 February 27, 2024 12:00am As directedVitamin D (3 sources)Start: 00-54-4577Jhjsenn D Oral, Daily, Refills(s) 0, Prophylaxis Start Date: 04/25/24 Status: Ordered Completed/Discontinued Medications MedicationDrug Class(es)DatesSig (Normalized)Sig (Original)amoxicillin 875 mg / clavulanate 125 mg oral tablet (4 sources)Penicillin-class AntibacterialStart: 02-05-2025 End: 28-48-2975qgbd 1 tablet by mouth every twelve hoursAmoxicillin-Pot Clavulanate 875-125 mg tablet Discontinued 1 TAB PO Every 12 hours 20 February 05, 2025 12:00am June 15, 2025 2:24amaspirin 325 mg oral tablet (20 sources)Platelet Aggregation Inhibitor, Nonsteroidal Anti-inflammatory Drug Start: 12-31-2024 End: 02-27-8987Jazfpdt 325 mg tablet Discontinued MG PO February 05, 2025 12:00am June 15, 2025 2:24am30 ml bupivacaine hydrochloride 5 mg/ml injection (2 sources)Amide Local AnestheticStart: 04-25-2025 End: 23-68-0342ZVPkjrcafoe (PF) 0.5 % (5 mg/mL) 1 mL injectionStart: 04-25-2025 End: mL, Injection - FOR ORTHO USE ONLY, ONCE, 1 dose, Starting on Nadya 04/25/25 at 1411, Until Nadya 04/25/25 at 1411celecoxib 200 mg oral capsule (4 sources)Nonsteroidal Anti-inflammatory DrugStart: 02-05-2025 End: 03-65-9514Ojdzkzivg 200 mg capsule Discontinued MG PO February 05, 2025 12:00am June 15, 2025 2:24amphentermine hydrochloride 37.5 mg oral tablet (3 sources)Sympathomimetic Amine AnorecticStart: 06-15-2025 End: 17-94-9602sjsq 1 tablet by mouth once dailyPhentermine 37.5 mg tablet Discontinued 37.5 MG PO Daily June 15, 2025 12:00am June 16, 2025 12:28pm triamcinolone acetonide 10 mg/ml injectable suspension (2 sources)CorticosteroidStart: 04-25-2025 End: 50-47-6945woqjxdhcssuij acetonide 10 mg injection (KeNALog 10)Start: 04-25-2025 End: 17-24-761494 mg, Injection - FOR ORTHO USE ONLY, ONCE, 1 dose, Starting on Nadya 04/25/25 at 1411, Until Nadya 04/25/25 at 1411 Problems Active Problems Problem ClassificationProblemDateDocumented DateEpisodic/ChronicAnxiety disorders (20 sources)Anxiety; Translations: [Anxiety disorder, unspecified]Onset: 942236-26-1726MipbsegBdizehku mellitus without complication (20 sources)Type 2 diabetes mellitus without complications; Translations: [Diabetes mellitus]Onset: 89-33-6746UdsrserQqhwpijaz of lipid metabolism (4 sources)Pure hyperglyceridemia; Translations: [PURE HYPERGLYCERIDEMIA]Onset: 63-82-7050VoidhqmGqxgrpdsyb disorders (20 sources)Gastroesophageal reflux disease; Translations: [Gastro-esophageal reflux disease without esophagitis]Onset: 030101-41-1722MepqljhSgbkober of lower limb (4 sources)Stress fracture of right foot; Translations: [Stress fracture, right foot, initial encounter for fracture]82-14-1908SspxkfkmJdijgnsezwx chest pain (7 sources)Chest pain; Translations: [Chest pain, unspecified]Onset: 06-15-2025 57-41-9240HatzzpryDjxlohtmgbr deficiencies (20 sources)Vitamin D deficiency, unspecified; Translations: [Vitamin D deficiency]Onset: 090586-31-8245SxfswxrVnoyplwbleankg (20 sources)Arthritis of right acromioclavicular joint; Translations: [Primary osteoarthritis, right shoulder]Onset: 168240-24-7825FwecpdcWgyxq acquired deformities (2 sources)Contracture of joint of left ankle; Translations: [Contracture, left ankle]61-59-2584UocptcsBihtl acquired deformities (10 sources)Contracture of joint of right ankle; Translations: [Contracture, right ankle]65-64-9078OuravzgSrzmj congenital anomalies (20 sources)Accessory right tarsal navicular bone; 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), including pelvic girdle]08-27-2024 ChronicOther congenital anomalies (3 sources)Accessory left tarsal navicular bone; 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), including pelvic girdle]41-50-1628NkaobrtHhicd congenital anomalies (3 sources)Other congenital malformations of lower limb(s), including pelvic girdle; 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), including pelvic girdle]Onset: 98-60-9146QmfdvynLcvyr connective tissue disease (2 sources)Calcaneal spur of left foot; Translations: [Calcaneal spur, left foot]84-43-3110WkbpzkwpGbkry connective tissue disease (2 sources)Plantar fasciitis; Translations: [Plantar fascial fibromatosis] 45-75-1688CyrkyunqLyrqd connective tissue disease (6 sources)Tendinitis of right posterior tibial tendon; Translations: [Posterior tibial tendinitis, right leg]37-09-6950PpmtowiaZeypq connective tissue disease (2 sources)Posterior tibial tendinitis, right leg; Translations: [Posterior tibial tendinitis, right leg]Onset: 45-51-0817XjgyihekDbspt connective tissue disease (1 source)Pain in right foot; Translations: [Pain in right foot]12-12-2024 EpisodicOther connective tissue disease (6 sources)Capsulitis of metatarsophalangeal joint of right foot; Translations: [Other enthesopathy of right foot and ankle]61-04-0310EgskblamVqamu nervous system disorders (1 source)Other chronic pain; Translations: [Chronic pain of right ankle]Onset: 45-72-9419CpohsouSnoaj non-traumatic joint disorders (1 source)Sinus tarsi syndrome of right ankle; Translations: [Pain in right ankle and joints of right foot]17-57-1821IeozspzkWkfxo non-traumatic joint disorders (5 sources)Chronic ankle pain; Translations: [Pain in right ankle and joints of right foot]14-10-1681LzrvtgnoKvfhz nutritional; endocrine; and metabolic disorders (20 sources)Morbid obesity; Translations: [Body mass index (BMI) 60.0-69.9, adult]Onset: 105218-64-5234UmrzgxxUynac nutritional; endocrine; and metabolic disorders (2 sources)Body mass index 40+ - severely obese; Translations: [Morbid (severe) obesity due to excess calories]93-96-4529HgkqysyMnohw nutritional; endocrine; and metabolic disorders (1 source)Morbid (severe) obesity due to excess calories; Translations: [Morbid (severe) obesity due to excess calories]Onset: 13-45-0701YksniawIortp nutritional; endocrine; and metabolic disorders (1 source)Body mass index (BMI) 60.0-69.9, adult; Translations: [Body mass index [BMI] 60.0-69.9, adult]Onset: 70-06-1089ZsveovcGuszb upper respiratory disease (1 source)Allergic rhinitis due to pollen; Translations: [Allergic rhinitis due to pollen]ChronicOther upper respiratory disease (2 sources)Chronic rhinitis; Translations: [Chronic rhinitis]43-43-5632Qvenztq Other upper respiratory infections (4 sources)Chronic sinusitis, unspecified; Translations: [CHRONIC SINUSITIS UNSPECIFIED]Onset: 50-46-2251XvcoqxtEhomrwfdap disorders (not diabetes) (3 sources)Grrlipphuvca57-32-2245LpiaxfrqVqcxmctd codes; unclassified (20 sources)Obstructive sleep apnea syndrome; Translations: [Obstructive sleep apnea (adult) (pediatric)]Onset: 959660-94-0879NmlzhiqEysztsrn codes; unclassified (1 source)Obstructive sleep apnea (adult) (pediatric); Translations: [Obstructive sleep apnea (adult) (pediatric)]Onset: 44-76-9484KrynzxlNnfatutj codes; unclassified (2 sources)Pain; Translations: [Pain, unspecified]53-31-8701RviqrrriGqpdsdbh codes; unclassified (14 sources)History of operative procedure on foot; Translations: [Other specified postprocedural states]25-28-0778JgdjoyddAqmw and subcutaneous tissue infections (3 sources)Onychia of finger; Translations: [Cellulitis of right finger] 36-10-7729TvgprtqsRdhfrwlirdwj (1 source)CONTACT W/AND (SUSP) EXPOS COVID-19; Translations: [CONTACT W/AND (SUSP) EXPOS COVID-19]Onset: 18-58-6883Lkjjefkexzfz (4 sources)Call office on Tuesday to schedule follow-up with Cardiology. Unclassified (2 sources)Call office on Tuesday to schedule follow-up with your Primary Care Provider within 3-5 days of discharge. Past or Other Problems Problem ClassificationProblemDateDocumented DateEpisodic/ChronicAbdominal pain (4 sources)Lower abdominal pain, unspecified; Translations: [Unspecified abdominal pain]Onset: 27-44-9463EcyjqebyUxqezcdtamzwhh/social admission (1 source)Dietary counseling and surveillance; Translations: [DIETARY COUNSELING AND SURVEILLANCE]Onset: 88-14-7076LfhvlryiUalzqbtze of teeth and jaw (2 sources)Pain of left temporomandibular joint; Translations: [Arthralgia of left temporomandibular joint]55-58-0475LlngpzskUehbzw and vomiting (1 source)Nausea; Translations: [NAUSEA]Onset: 28-96-3589JgnntoceHywcm connective tissue disease (1 source)Pain in right finger(s)Onset: 03-22-2022 Resolved: 18-52-1823ExnwnxwvKqzvr connective tissue disease (3 sources)Pain in right foot; Translations: [Pain in right foot]Onset: 17-02-2832JjhyxshtXflwz ear and sense organ disorders (2 sources)Otalgia, left ear; Translations: [Otalgia, unspecified]07-26-2024 EpisodicOther ear and sense organ disorders (2 sources)Ear sensations - finding; Translations: [Other specified disorders of left ear]82-31-5049FsctfyfxOldas nervous system disorders (1 source)Other acute postprocedural pain; Translations: [Post-op pain]Onset: 30-90-2187NtmpsnriApspf non-traumatic joint disorders (2 sources)Pain in right ankle and joints of right foot; Translations: [Chronic pain of right ankle]Onset: 21-26-3842AttogrnmIkkbflkq codes; unclassified (1 source)Other specified postprocedural states; Translations: [S/P foot surgery, right]Onset: 38-95-1624FzhjvcepBvlbzont codes; unclassified (1 source)Pain, unspecified; Translations: [Pain]Onset: 57-40-3702Dzaizugw Spondylosis; intervertebral disc disorders; other back problems (4 sources)Sciatica, right side; Translations: [SCIATICA RIGHT SIDE]Onset: 86-89-7857VxeoxwugGltmnpj and strains (1 source)Unspecified sprain of right ring finger, initial encounterOnset: 03-22-2022 Resolved: 95-38-3267GvjugyhlEnmsmuvbnyvb (6 sources)Stress fracture of right ghuo40-51-1904Mfsehritynse (8 sources)History of operative procedure on ewvn42-06-5224 Results Test NameValueInterpretationReference RangeFacilityCNOVon 67-18-5252BGUDKjmabr Visit (RAYMONDORRM) NOEL PAUL ([id number]) 1990 F [place] Date Time Provider Department 09/03/25 8:30 AM SEAN MATA During your visit today, we recorded the following information about you: Sean Mata DPM 09/03/2025 8:56 AM Signed PRIMARY SERVICE: [facility] Pod[facility] SUBJECTIVE: Patient is seen today with [...] tablet by mouth once daily. 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 DEXCOM G7 SENSOR eduin [...] by mouth once daily. 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 - DEXCOM G7 SENSOR [...] [F41.9] 07/21/2024 Diabetes mellitus (more content not included)...[facility] chest PE protocolon 99-08-8590EI angio chest PE protocolKETTERING [place] [address] CT Scan Report Signed Patient: Noel Paul MR#: [id number] : 1990 Acct:[id number] Age/Sex: 34 / F ADM Date: 06/15/25 Loc: Room: [address] [place] [address] Type: ADM INOo Attending Dr: Mitch Galaviz [...] Prince M.D. 06/16/2025 12:11 PM Dictation Location: [place] [address] Transcribed By: [facility] 06/16/25 1211 Dictated By: Joshua Prince MD 06/16/25 1208 Signed By: 06/16/25 1211[facility] GroupECG 12 lead ECGon 73-09-9883GWA 12 lead ECGKETTERING HEALTH [facility]TON [place] [address] [place] [address] Electrocardiograph Report Signed Patient: Noel Paul MR#: [id number] : 1990 Acct:[id number] Age/Sex: 34 / F ADM Date: 06/15/25 Loc: Room: [address] [place] [address] Type: ADM INOo Attending Dr: Mitch Galaviz [...] rhythm Normal ECG Confirmed by Inge Adler ([id number]) on 06/16/2025 10:58:02 AM Referred By: Electronically Signed By: Inge Adler Transcribed By: MUS Signed By Inge Adler MD 5 1058[facility] Physician GroupGlucose Poct Glucometerson 06-16-2025 Glucose [Mass/Vol]106 mg/dLAdventHealth Winter Park Physician GroupComment on above: Result Comment: Random Glucose Reference Range is dependent on time and content of last meal. Glucose of more than 200 mg/dL in a nonstressed, ambulatory subject supports the diagnosis of Diabetes Mellitus. PERFORMED BY: [address] [address] PATHOLOGIST TRANSMISSION ENGINEER CHANEL ROMERO M.D.Performed By: #### GLULS #### Point of Care testing ,Nhohpin9Ake5: Cleaned MeterNoCape Fear Valley Hoke Hospital Physician GroupComment on above: Result Comment: PERFORMED BY: [address] [address] PATHOLOGIST TRANSMISSION ENGINEER CHANEL ROMERO M.D.Performed By: #### GLULS #### Point of Care testing ,Glucose [Mass/Vol]124 mg/dLAdventHealth Winter Park Physician GroupComment on above: Result Comment: Random Glucose Reference Range is dependent on time and content of last meal. Glucose of more than 200 mg/dL in a nonstressed, ambulatory subject supports the diagnosis of Diabetes Mellitus.Performed By: #### GLULS #### Point of Care testing ,Mlcyhvb2Lhj4: Cleaned MeterNoCape Fear Valley Hoke Hospital Physician GroupComment on above: Result Comment: PERFORMED BY: [place] [address] PATHOLOGIST TRANSMISSION ENGINEER CHANEL ROMERO M.D.Performed By: #### GLULS #### Point of Care testing ,Glucose [Mass/Vol]125 mg/dLAdventHealth Winter Park Physician GroupComment on above: Result Comment: Random Glucose Reference Range is dependent on time and content of last meal. Glucose of more than 200 mg/dL in a nonstressed, ambulatory subject supports the diagnosis of Diabetes Mellitus.Performed By: #### GLULS #### Point of Care testing ,Troponin I High Sensitivityon 00-99-5681Aowdpjat I High Xvhxxkjirky6Wajrab0-43 [facility] Physician GroupComment on above:Result Comment: The Troponin units of report have been changed to meet the Chest Pain Accreditation requirement, element EC5.M1l2. Troponin units are changed from pg/ml to ng/L. Also, the decimal is removed and results are in whole numbers. PERFORMED BY: [place] [address] PATHOLOGIST TRANSMISSION ENGINEER CHANEL ROMERO M.D.Performed By: #### GLULS #### Point of Care testing ,A1C with Estimated Average Gluon 94-36-1382Teeubkg [Mass/Vol]137 mg/dLAdventHealth Winter Park Physician GroupComment on above:Result Comment: PERFORMED BY: [place] [address] PATHOLOGIST TRANSMISSION ENGINEER CHANEL ROMERO M.D.Performed By: #### HS TROP #### [place] [address] AFEZwM2l (Bld) [Mass fraction]6.4 %High4.3-5.6The [facility] Physician GroupComment on above:Result Comment: Increased risk for diabetes: 5.7 - 6.4 diabetes: >6.4 glycemic control for adults with diabetes: <7.0Performed By: #### HS TROP #### [facility] [address] [place] [address] USABasic Metabolic Panelon 88-25-3480Rqsys gap [Moles/Vol] 10.1 mmol/LNormal6.0-15.0The [facility] Physician GroupComment on above:Performed By: #### HS TROP #### [facility] [address] [place] [address] USACalcium [Mass/Vol]8.7 mg/dLNormal8.6-10.3The [facility] Physician GroupComment on above:Performed By: #### HS TROP #### [facility] [address] [place] [address] USAChloride [Moles/Vol]103 mmol/KAejjys35-329Nmn [facility] Physician GroupComment on above:Performed By: #### HS TROP #### [facility] [address] [place] [address] USACO2 [Moles/Vol]30.9 mmol/PHvjpvm66.0-31.0The [facility] Physician GroupComment on above:Performed By: #### HS TROP #### [facility] [address] [place] [address] USACreatinine [Mass/Vol]0.86 mg/dLNormal0.60-1.20The [facility] Physician GroupComment on above:Performed By: #### HS TROP #### [facility] [address] [place] [address] USACreatinine Clr Calc Ssvdzdlj344.66NormalThe [facility] Physician GroupComment on above:Performed By: #### HS TROP #### [facility] [address] [place] [address] USAGFR/1.73 sq M.predicted MDRD (S/P/Bld) [Vol rate/Area] mL/min/{1.73_m2}NormalThe [facility] Physician GroupComment on above:Performed By: #### HS TROP #### [place] [address] USAGlucose [Mass/Vol]123 mg/qNNwxk20-191Kxq [facility] Physician GroupComment on above:Result Comment: Random Glucose Reference Range is dependent on time and content of last meal. Glucose of more than 200 mg/dL in a nonstressed, ambulatory subject supports the diagnosis of Diabetes Mellitus. ADA recommended reference rangePerformed By: #### HS TROP #### [place] [address] USAPotassium [Moles/Vol]4.0 mmol/LNormal3.5-5.1The [facility] Physician GroupComment on above:Performed By: #### HS TROP #### [place] [address] USASodium [Moles/Vol]140 mmol/DByxalv150-078Xgs [facility] Physician GroupComment on above:Performed By: #### HS TROP #### [place] [address] USAUrea nitrogen [Mass/Vol]17 mg/dLNormal7-25The [facility] Physician GroupComment on above:Performed By: #### HS TROP #### [place] [address] USAComplete Blood Count Auto Diffon 20-15-9413Twlseqmib (Bld) [#/Vol]0.1 10*3/uLNormal0.0-0.2The [facility] Physician GroupComment on above: Result Comment: PERFORMED BY: [place] [address] PATHOLOGIST TRANSMISSION ENGINEER CHANEL ROMERO M.D.Performed By: #### HS TROP #### [place] [address] USABasophils/100 WBC (Bld)0.7 %Normal.The [facility] Physician GroupComment on above:Performed By: #### HS TROP #### [place] [address] USAEosinophils (Bld) [#/Vol]0.3 10*3/uLNormal0.0-0.45The [facility] Physician GroupComment on above:Performed By: #### HS TROP #### [facility] [address] [place] [address] USAEosinophils/100 WBC (Bld)2.8 %Normal.The [facility] Physician GroupComment on above:Performed By: #### HS TROP #### [facility] [address] [place] [address] USAErythrocyte distribution width (RBC) [Ratio]17.1 %High 11.9-15.3The [facility] Physician GroupComment on above:Performed By: #### HS TROP #### [place] [address] USAHematocrit (Bld) [Volume fraction]36.5 %Oeyoqp19.0-46.4The [facility] Physician GroupComment on above:Performed By: #### HS TROP #### [place] [address] USAHemoglobin (Bld) [Mass/Vol]11.6 g/dLLow11.8-15.4The [facility] Physician GroupComment on above:Performed By: #### HS TROP #### [place] [address] USALymphocytes (Bld) [#/Vol]1.9 10*3/uLNormal1.00-4.8The [facility] Physician GroupComment on above:Performed By: #### HS TROP #### [place] [address] USALymphocytes/100 WBC (Bld)16.9 %Normal.The [facility] Physician GroupComment on above:Performed By: #### HS TROP #### [place] [address] USAMCH (RBC) [Entitic mass]25.0 jxFwyavi84.7-34.3The [facility] Physician GroupComment on above:Performed By: #### HS TROP #### [place] [address] USAMCV (RBC) [Entitic vol]78.4 zBAhu54-464Xfl [facility] Physician GroupComment on above:Performed By: #### HS TROP #### [place] [address] USAMean Corpuscular HGB Conc31.9 g/dLLow32.0-35.0The [facility] Physician GroupComment on above:Performed By: #### HS TROP #### [place] [address] USAMonocytes (Bld) [#/Vol]0.6 10*3/uLNormal0.0-0.8The [facility] Physician GroupComment on above:Performed By: #### HS TROP #### [place] [address] USAMonocytes/100 WBC (Bld)5.6 %Normal.The [facility] Physician GroupComment on above:Performed By: #### HS TROP #### [place] [address] USANeutrophils (Bld) [#/Vol]8.3 10*3/uLHigh1.8-7.7The [facility] Physician GroupComment on above:Performed By: #### HS TROP #### [place] [address] USANeutrophils/100 WBC (Bld)74.0 %Normal.The [facility] Physician GroupComment on above:Performed By: #### HS TROP #### [place] [address] USANRBC%0.1 /100{WBC}Normal0-0.5[facility] Comment on above:Performed By: #### HS TROP #### [place] [address] USAPlatelet mean volume (Bld) [Entitic vol]7.4 fLNormal 6.3-10.7The [facility] Physician GroupComment on above:Performed By: #### HS TROP #### [address] [place] [address] USAPlatelets (Bld) [#/Vol]349 10*3/kGLtriee524-102Rtx [facility] Physician GroupComment on above:Performed By: #### HS TROP #### [place] [address] USARBC (Bld) [#/Vol]4.65 10*6/uLNormal3.60-5.00The [facility] Physician GroupComment on above:Performed By: #### HS TROP #### [place] [address] USAWBC (Bld) [#/Vol]11.2 10*3/uLNormal3.8-11.6The [facility] Physician GroupComment on above:Performed By: #### HS TROP #### [place] [address] USAWhite Blood Count11.2 [CFU]/mLNormal3.8-11.6The [facility] Physician GroupComment on above:Performed By: #### HS TROP #### [place] [address] USAECG 12 lead ECGon 48-98-4363DTD 12 lead ECGKETTERING [facility] Main [place] [address] [place] [address] Electrocardiograph Report Signed Patient: Noel Paul MR#: [id number] : 1990 Acct:[id number] Age/Sex: 34 / F ADM Date: 06/15/25 Loc: Room: [address] [place] [address] Type: ADM INOo Attending Dr: Mitch Galaviz [...] rhythm Normal ECG Confirmed by Inge Adler ([id number]) on 06/15/2025 7:22:48 PM Referred By: Electronically Signed By: Inge Adler Transcribed By: MUS Signed By Inge Adler MD [address] [place] [address] Physician GroupECG 12 lead ECGKETTERING [facility] Main [place] [id number] Electrocardiograph Report Signed Patient: Noel Paul MR#: [id number] : 1990 Acct:[id number] Age/Sex: 34 / F ADM Date: 06/15/25 Loc: Room: [address] [place] [address] Type: ADM INOo Attending Dr: Mitch Galaviz [...] rhythm Normal ECG Confirmed by Inge Adler ([id number]) on 06/15/2025 7:22:44 PM Referred By: Electronically Signed By: Inge Adler Transcribed By: MUS Signed By Inge Adler MD [address] [place] [address] Physician GroupECH echo transthoracicon 41-02-1755DWM echo transthoracicKETTERING HEALTH [facility] Main [place] [id number] Echocardiogram Signed Patient: Noel Paul MR#: [id number] : 1990 Acct:[id number] Age/Sex: 34 / F ADM Date: 06/15/25 Loc: Room: [address] [place] [address] Type: ADM INOo Attending Dr: Mitch Galaviz MD Ordering Provider: Inge Adler MD Date of Service: 06/15/25 ECH/ECH echo transthoracic: Chest pain Copies to: Inge [...] 1243 Signed By: Inge Adler MD 06/15/25 1758[facility] Glucose Poct Glucometerson 28-17-5010Vmusqht9Ocd4: Cleaned MeterM Health Fairview Ridges HospitalComment on above:Result Comment: PERFORMED BY: [address] [place] [address] PATHOLOGIST TRANSMISSION ENGINEER CHANEL ROMERO M.D.Performed By: #### GLULS #### Point of Care testing ,Glucose [Mass/Vol]111 mg/dLAdventHealth Winter Park Physician [facility] CountyComment on above: Result Comment: Random Glucose Reference Range is dependent on time and content of last meal. Glucose of more than 200 mg/dL in a nonstressed, ambulatory subject supports the diagnosis of Diabetes Mellitus.Performed By: #### GLULS #### Point of Care testing ,Glucose [Mass/Vol]108 mg/dLAdventHealth Winter Park Physician [facility] Stone CountyComment on above: Result Comment: Random Glucose Reference Range is dependent on time and content of last meal. Glucose of more than 200 mg/dL in a nonstressed, ambulatory subject supports the diagnosis of Diabetes Mellitus. PERFORMED BY: [address] [place] [address] PATHOLOGIST TRANSMISSION ENGINEER CHANEL ROMERO M.D.Performed By: #### GLULS #### Point of Care testing ,Glucose [Mass/Vol]74 mg/dLAdventHealth Winter Park Physician [facility] CountyComment on above: Result Comment: Random Glucose Reference Range is dependent on time and content of last meal. Glucose of more than 200 mg/dL in a nonstressed, ambulatory subject supports the diagnosis of Diabetes Mellitus. PERFORMED BY: [address] [address] PATHOLOGIST TRANSMISSION ENGINEER CHANEL ROMERO M.D.Performed By: #### GLULS #### Point of Care testing ,Gyehbrd6Jwo1: Cleaned MeterAdventHealth Winter Park Physician GroupComment on above: Result Comment: PERFORMED BY: [address] [place] [address] PATHOLOGIST TRANSMISSION ENGINEER CHANEL ROMERO M.D.Performed By: #### GLULS #### Point of Care testing ,Glucose [Mass/Vol]88 mg/dLAdventHealth Winter Park Physician GroupComment on above: Result Comment: Random Glucose Reference Range is dependent on time and content of last meal. Glucose of more than 200 mg/dL in a nonstressed, ambulatory subject supports the diagnosis of Diabetes Mellitus.Performed By: #### GLULS #### Point of Care testing ,Khzpuod6Uux5: Cleaned MeterNoCape Fear Valley Hoke Hospital Physician GroupComment on above: Result Comment: PERFORMED BY: [address] [place] [address] PATHOLOGIST TRANSMISSION ENGINEER CHANEL ROMERO M.D.Performed By: #### GLULS #### Point of Care testing ,Glucose [Mass/Vol]79 mg/dLAdventHealth Winter Park Physician GroupComment on above: Result Comment: Random Glucose Reference Range is dependent on time and content of last meal. Glucose of more than 200 mg/dL in a nonstressed, ambulatory subject supports the diagnosis of Diabetes Mellitus.Performed By: #### GLULS #### Point of Care testing ,Glucose [Mass/Vol]64 mg/dLAdventHealth Winter Park Physician GroupComment on above: Result Comment: Random Glucose Reference Range is dependent on time and content of last meal. Glucose of more than 200 mg/dL in a nonstressed, ambulatory subject supports the diagnosis of Diabetes Mellitus. PERFORMED BY: [place] [address] PATHOLOGIST TRANSMISSION ENGINEER CHANEL ROMERO M.D.Performed By: #### GLULS #### Point of Care testing ,Glucose [Mass/Vol]94 mg/dLAdventHealth Winter Park Physician GroupComment on above: Result Comment: Random Glucose Reference Range is dependent on time and content of last meal. Glucose of more than 200 mg/dL in a nonstressed, ambulatory subject supports the diagnosis of Diabetes Mellitus. PERFORMED BY: [address] [place] [address] PATHOLOGIST TRANSMISSION ENGINEER CHANEL ROMERO M.D.Performed By: #### GLULS #### Point of Care testing ,Xyhsunu5Ele4: Cleaned MeterNoCape Fear Valley Hoke Hospital Physician GroupComment on above: Result Comment: PERFORMED BY: [place] [address] PATHOLOGIST TRANSMISSION ENGINEER CHANEL ROMERO M.D.Performed By: #### GLULS #### Point of Care testing ,Glucose [Mass/Vol]115 mg/dLAdventHealth Winter Park Physician GroupComment on above: Result Comment: Random Glucose Reference Range is dependent on time and content of last meal. Glucose of more than 200 mg/dL in a nonstressed, ambulatory subject supports the diagnosis of Diabetes Mellitus.Performed By: #### GLULS #### Point of Care testing ,Ykvvcwv7Iec1: Cleaned MeterAdventHealth Winter Park Physician GroupComment on above: Result Comment: PERFORMED BY: [place] [id number] PATHOLOGIST TRANSMISSION ENGINEER CHANEL ROMERO M.D.Performed By: #### GLULS #### Point of Care testing ,Glucose [Mass/Vol]135 mg/dLAdventHealth Winter Park Physician GroupComment on above: Result Comment: Random Glucose Reference Range is dependent on time and content of last meal. Glucose of more than 200 mg/dL in a nonstressed, ambulatory subject supports the diagnosis of Diabetes Mellitus.Performed By: #### GLULS #### Point of Care testing ,Lipid Panelon 21-30-0375Ikyrnlyfoeb [Mass/Vol]158 mg/bXFygnzs357-705Hqe [facility] Physician GroupComment on above:Result Comment: Chol less than 200 mg/dl low risk Chol 201-239 mg/dl borderline risk Chol 240 mg/dl and greater high riskPerformed By: #### HS TROP #### [place] [address] USACholesterol in HDL [Mass/Vol]31 mg/mNKorbqb14-96Iqr [facility] Physician GroupComment on above:Result Comment: HDL CHOL ATP-III CLASSIFICATION Cardiovascular Risk HDL > or equal to 60 mg/dL LOW HDL < 40 mg/dL HIGHPerformed By: #### HS TROP #### [place] [address] USACholesterol.total/Cholesterol in HDL [Mass ratio]5.1 {ratio}Normal<5.0The [facility] Physician GroupComment on above:Result Comment: PERFORMED BY: [place] [address] PATHOLOGIST TRANSMISSION ENGINEER CHANEL ROMERO M.D.Performed By: #### HS TROP #### [place] [address] USALDL Cholesterol,Osevwoebmv70 mg/dLNormal0-100The [facility] Physician GroupComment on above:Result Comment: LDL ATP III CLASSIFICATION LDL less than 100 mg/dL Optimal LDL 100-129 mg/dL Near or above optimal LDL 130-159 mg/dL Borderline high LDL 160-189 mg/dL High LDL greater than 189 mg/dL Very highPerformed By: #### HS TROP #### [place] [address] USATriglyceride w/Jayjpr470 mg/dLHigh0-149The [facility] Physician GroupComment on above:Result Comment: TRIG ATP III CLASSIFICATION TRIG less than 150 mg/dL Normal TRIG 150-199 mg/dL Borderline high TRIG 200-500 mg/dL High TRIG greater than 500 mg/dL Very high Standard traceable to the Center for Disease Conrtrol and Prevention (CDC) test method.Performed By: #### HS TROP #### [place] [address] USAVLDL FKHUIFIGGFY31 mg/dLNormalThe [facility] Physician GroupComment on above:Performed By: #### HS TROP #### [place] [address] USAMagnesiumon 49-10-3895Ejkdikxxt [Mass/Vol]1.8 mg/dLLow 1.9-2.7The [facility] Physician GroupComment on above:Performed By: #### HS TROP #### [place] [address] USATroponin I High Sensitivityon 55-52-2561Gmfynsek I High Xfrunjcgwnl4Sntnzt2-64Ucj [facility] Physician [facility] CountyComment on above:Result Comment: The Troponin units of report have been changed to meet the Chest Pain Accreditation requirement, element EC5.M1l2. Troponin units are changed from pg/ml to ng/L. Also, the decimal is removed and results are in whole numbers. PERFORMED BY: [place] [address] PATHOLOGIST TRANSMISSION ENGINEER CHANEL ROMERO M.D.Performed By: #### HS TROP #### [place] [address] USATroponin I High Wdgsixjcpgk8Zugdok9-74Cwv [facility] Physician [facility] CountyComment on above:Result Comment: The Troponin units of report have been changed to meet the Chest Pain Accreditation requirement, element EC5.M1l2. Troponin units are changed from pg/ml to ng/L. Also, the decimal is removed and results are in whole numbers. PERFORMED BY: [place] [address] PATHOLOGIST TRANSMISSION ENGINEER CHANEL ROMERO M.D.Performed By: #### HS TROP #### [place] [address] USATroponin I High Sceojrucgat6Obwvkx6-59Byk [facility] Physician [facility] CountyComment on above:Result Comment: The Troponin units of report have been changed to meet the Chest Pain Accreditation requirement, element EC5.M1l2. Troponin units are changed from pg/ml to ng/L. Also, the decimal is removed and results are in whole numbers. PERFORMED BY: [place] [address] PATHOLOGIST TRANSMISSION ENGINEER CHANEL S HEATHER M.D.Performed By: #### GLULS #### Point of Care testing ,Troponin I.cardiac [Mass/volume] in Serum or Plasma by Detection limit <= 0.01 ng/mLOrdered By: Marek Simran on 43-40-4424Uivrgzix I.cardiac DL <= 0.01 ng/mL [Mass/Vol]3 ng/L0-15[facility] Medical CenterComment on above:The Troponin units of report have been changed to meet the Chest Pain Accreditation requirement, element EC5.M1l2. Troponin units are changed from pg/ml to ng/L. Also, the decimal is removed and results are in whole numbers.BNP ser/plas Ordered By: Marek Dennis on 99-46-1092Tfvtxnrtmpb peptide B (Bld) [Mass/Vol]20.0 pg/mLNormal5-100[facility] Medical CenterComment on above:Result Comment: PERFORMED BY: [address] [place] [address] PATHOLOGIST TRANSMISSION ENGINEER CHANEL ROMERO M.D.Performed By: #### GLULS #### Point of Care testing ,Basic Metabolic Panelon 66-06-9283Kshhpcrlkx Clr Calc Uhnfxjjz696.28NoCape [facility] Hospital Physician GroupComment on above:Result Comment: PERFORMED BY: [address] [place] [address] PATHOLOGIST TRANSMISSION ENGINEER CHANEL ROMERO M.D.Performed By: #### GLULS #### Point of Care testing ,GFR/1.73 sq M.predicted MDRD (S/P/Bld) [Vol rate/Area]mL/min/{1.73_m2}NormalThe [facility] Physician [facility] CountyComment on above:Performed By: #### GLULS #### Point of Care testing ,Basophils [#/volume] in Blood by Automated countOrdered By: PROVIDER TEMP on 52-78-4590Vgrroojme (Bld) [#/Vol]0.2 10*3/uLNormal0.0-0.2FLicking Memorial HospitalComment on above:Result Comment: PERFORMED BY: [facility] [address] [place] [address] PATHOLOGIST TRANSMISSION ENGINEER CHANEL ROMERO M.D.Performed By: #### GLULS #### Point of Care testing ,Basophils/100 leukocytes in Blood by Automated countOrdered By: PROVIDER TEMP on 93-82-1065Lfhjujhez/100 WBC (Bld)1.4 %Normal.[facility]c Medical CenterComment on above:Performed By: #### GLULS #### Point of Care testing ,Calcium [Mass/volume] in Serum or PlasmaOrdered By: PROVIDER TEMP on 06-14-2025 Calcium [Mass/Vol]9.4 mg/dLNormal8.6-10.3FLicking Memorial Hospital Comment on above:Performed By: #### GLULS #### Point of Care testing ,Carbon dioxide, total [Moles/volume] in Serum or PlasmaOrdered By: PROVIDER TEMP on 13-02-4937GW9 [Moles/Vol]27.2 mmol/HTtzbmf77.0-31.0[facility] Medical CenterComment on above:Performed By: #### GLULS #### Point of Care testing ,Chloride [Moles/volume] in Serum or PlasmaOrdered By: PROVIDER TEMP on 70-42-7287Sovujcsy [Moles/Vol]105 mmol/GNxwcds94-986FmjvnvmjmUc Medical CenterComment on above:Performed By: #### GLULS #### Point of Care testing ,Complete Blood Count Auto Diffon 31-77-7211I[employer] Corpuscular HGB Conc32.2 g/dL Ayjynp38.0-35.0The [facility] Physician GroupComment on above:Performed By: #### GLULS #### Point of Care testing ,Monocytes/100 WBC (Bld)19.88 %Normal0.00-20.00The [facility] Comment on above:Performed By: #### GLULS #### Point of Care testing ,NRBC%0.1 /100{WBC}Normal0-0.5The [facility] Physician GroupComment on above: Performed By: #### GLULS #### Point of Care testing ,White Blood Count12.4 [CFU]/mLHigh3.8-11.6The [place] Physician GroupComment on above:Performed By: #### GLULS #### Point of Care testing ,Creatine kinase [Enzymatic activity/volume] in Serum or PlasmaOrdered By: PROVIDER TEMP on 86-33-1325SS [Catalytic activity/Vol]50 U/BVzgyqy62-349 [facility] Medical CenterComment on above:Performed By: #### GLULS #### Point of Care testing ,Creatinine [Mass/volume] in Serum or PlasmaOrdered By: PROVIDER TEMP on 99-24-4215Pgmxqhsais [Mass/Vol]0.99 mg/dLNormal0.60-1.20[facility] Medical CenterComment on above:Performed By: #### GLULS #### Point of Care testing ,D-Dimer High Sensitivityon 31-08-6511T-Dimer High Sensitivity<544Istbaq4-974Tyo Wayne Memorial HospitalComment on above:Result Comment: The reference range for D-dimer is [...] coagulation studies. Please contact the laboratory at [phone] for redraw instructions. PERFORMED BY: [address] [address] PATHOLOGIST TRANSMISSION ENGINEER CHANEL ROMERO M.D.Performed By: #### GLULS #### Point of Care testing ,ECG 12 lead ECGon 08-56-5866FBF 12 lead ECGKETTERING HEALTH [facility]TON Main [address] [address] Electrocardiograph Report Signed Patient: Noel Paul MR#: [id number] : 1990 Acct:[id number] Age/Sex: 34 / F ADM Date: 06/15/25 Loc: Room: [address] [place] [address] Type: ADM INOo Attending Dr: Neo Mclaughlin [...] By: MUS Signed By Marek Dennis DO 0300[facility] Physician GroupEosinophils [#/volume] in Blood by Automated countOrdered By: PROVIDER TEMP on 36-92-1690Qpgnqkvriya (Bld) [#/Vol] 0.3 10*3/uLNormal0.0-0.45[facility] Medical CenterComment on above: Performed By: #### GLULS #### Point of Care testing ,Eosinophils/100 leukocytes in Blood by Automated countOrdered By: PROVIDER TEMP on 17-92-6681Tgdhqtdnvbt/100 WBC (Bld)2.8 %Normal.[facility]c Medical CenterComment on above:Performed By: #### GLULS #### Point of Care testing ,Erythrocyte distribution width [Ratio] by Automated countOrdered By: PROVIDER TEMP on 70-16-6673Itfhxnfcuva distribution width (RBC) [Ratio]16.5 %High 11.9-15.3FLicking Memorial HospitalComment on above:Performed By: #### GLULS #### Point of Care testing ,Erythrocytes [#/volume] in Blood by Automated countOrdered By: PROVIDER TEMP on 74-46-7223ROJ (Bld) [#/Vol]4.98 10*6/uLNormal3.60-5.00[facility] Medical CenterComment on above:Performed By: #### GLULS #### Point of Care testing ,Glucose [Mass/volume] in Serum or PlasmaOrdered By: PROVIDER TEMP on 06-14-2025 Glucose [Mass/Vol]143 mg/gNNakw76-621HwcdcebjxUc Medical CenterComment on above:ADA recommended reference rangeRandom Glucose Reference Range is dependent on time and content of last meal. Glucose of more than 200 mg/dL in a nonstressed, ambulatory subject supports the diagnosisof Diabetes Mellitus. Result Comment: Random Glucose Reference Range is dependent on time and content of last meal. Glucose of more than 200 mg/dL in a nonstressed, ambulatory subject supports the diagnosis of Diabetes Mellitus. ADA recommended reference rangePerformed By: #### GLULS #### Point of Care testing ,Hematocrit [Volume Fraction] of Blood by Automated countOrdered By: PROVIDER TEMP on 27-68-7790Efkfbhlbeg (Bld) [Volume fraction]38.6 %Evjgeb22.0-46.4 [facility] Medical CenterComment on above:Performed By: #### GLULS #### Point of Care testing ,Hemoglobin [Mass/volume] in BloodOrdered By: PROVIDER TEMP on 06-14-2025 Hemoglobin (Bld) [Mass/Vol]12.4 g/dWCmmcqh16.8-15.4FLicking Memorial HospitalComment on above:Performed By: #### GLULS #### Point of Care testing ,INR in Platelet poor plasma by Coagulation assayOrdered By: Marek Dennis on 18-59-7482RHF Coag (PPP) [Relative time]1.0 {INR}[facility] St. Mary HospitalComment on above:INR Therapeutic Range A) Pre- and Peroperative OAT started two weeks before surgery. NOT HIP SURGERY: 1.5 - 2.5 HIP SURGERY: 2 - 3B) Primary and secondary prevention of venous THROMBOSIS: 2 - 3C) Active venous thrombosis, pulmonary embolismand prevention of recurrent venous thrombosis: 2 - 3D) Prevention of arterial thromboembolismincluding patients with mechanical heart valves: 3 - 4.5Result Comment: INR Therapeutic Range A) Pre- and [...] heart valves: 3 - 4.5 PERFORMED BY: [facility] [place] [address] PATHOLOGIST TRANSMISSION ENGINEER CHANEL ROMERO M.D.Performed By: #### GLULS #### Point of Care testing ,Leukocytes [#/volume] corrected for nucleated erythrocytes in Blood by Automated counOrdered By: PROVIDER TEMP on 71-79-5578VBV corrected for nucl RBC Auto (Bld) [#/Vol]12.4 10*3/uLHigh3.8-11.6FLicking [facility] Hospital Leukocytes [#/volume] in Blood by Automated countOrdered By: PROVIDER TEMP on 79-40-4684ASU (Bld) [#/Vol]12.4 10*3/uLHigh3.8-11.6FLicking Memorial HospitalComment on above:Performed By: #### GLULS #### Point of Care testing ,Lymphocytes [#/volume] in Blood by Automated countOrdered By: PROVIDER TEMP on 56-43-8968Nraocivytjj (Bld) [#/Vol]2.0 10*3/uLNormal1.00-4.8Uc Medical CenterComment on above:Performed By: #### GLULS #### Point of Care testing ,Lymphocytes/100 leukocytes in Blood by Automated countOrdered By: PROVIDER TEMP on 52-16-5978Hsxtvukzxwk/100 WBC (Bld)15.9 %Normal.Uc Medical CenterComment on above:Performed By: #### GLULS #### Point of Care testing ,MCH [Entitic mass] by Automated countOrdered By: PROVIDER TEMP on 83-03-4950MXO (RBC) [Entitic mass]25.0 zxGjnwxz62.7-34.3FLicking [facility] Comment on above:Performed By: #### GLULS #### Point of Care testing ,MCHC Auto (RBC) [Mass/Vol]Ordered By: PROVIDER TEMP on 26-36-6740PXJS (RBC) [Mass/Vol]32.2 g/dL32.0-35.0Uc Medical CenterMCV [Entitic volume] by Automated countOrdered By: PROVIDER TEMP on 40-16-3169VTS (RBC) [Entitic vol]77.6 xYGha39-539EtqytoyseUc Medical CenterComment on above: Performed By: #### GLULS #### Point of Care testing ,Monocyte distribution width [Entitic volume] in Blood by AutomatedOrdered By: PROVIDER TEMP on 55-21-7850Vblvlyzw distribution width Auto (Bld) [Entitic vol] 19.88 %0.00-20.00Uc Medical CenterMonocytes [#/volume] in Blood by Automated countOrdered By: PROVIDER TEMP on 64-58-5629Rlngunbjc (Bld) [#/Vol] 0.6 10*3/uLNormal0.0-0.8[facility] Medical CenterComment on above: Performed By: #### GLULS #### Point of Care testing ,Monocytes/100 leukocytes in Blood by Automated countOrdered By: PROVIDER TEMP on 79-74-1769Wkyjkkooq/100 WBC (Bld)5.2 %Normal.[facility]c Medical CenterComment on above:Performed By: #### GLULS #### Point of Care testing ,Neutrophils [#/volume] in Blood by Automated countOrdered By: PROVIDER TEMP on 1988Fxuhytswsgy (Bld) [#/Vol]9.3 10*3/uLHigh1.8-7.7FLicking Memorial HospitalComment on above:Performed By: #### GLULS #### Point of Care testing ,Neutrophils/100 leukocytes in Blood by Automated countOrdered By: PROVIDER TEMP on 08-15-0285Cpienqsocae/100 WBC (Bld)74.7 %Normal.[facility]c Medical CenterComment on above:Performed By: #### GLULS #### Point of Care testing ,No Panel InformationOrdered By: PROVIDER TEMP on 20-96-8085Oppzkmkhg GFR (CKD-EPI)> 60.0 mL/MinUc Medical CenterPharmacy Creatinine Clearance (Rlyr752.28Uc Medical CenterNucleated erythrocytes [Presence] in Blood by Automated countOrdered By: PROVIDER TEMP on 06-14-2025 Nucleated RBC Auto Ql (Bld)0.1 /100{WBC}0-0.5FL[facility] Platelet mean volume [Entitic volume] in Blood by Automated countOrdered By: PROVIDER TEMP on 33-18-5820Wczggpct mean volume (Bld) [Entitic vol]7.5 fLNormal 6.3-10.7FLicking Memorial HospitalComment on above:Performed By: #### GLULS #### Point of Care testing ,Platelets [#/volume] in Blood by Automated countOrdered By: PROVIDER TEMP on 79-72-2265Oumobdjna (Bld) [#/Vol]361 10*3/kDLyddgj451-814DxxmkehmiUc Medical CenterComment on above:Performed By: #### GLULS #### Point of Care testing ,Potassium [Moles/volume] in Serum or PlasmaOrdered By: PROVIDER TEMP on 97-20-1127Ijcbvihsp [Moles/Vol]3.7 mmol/LNormal3.5-5.1FLicking Memorial HospitalComment on above:Performed By: #### GLULS #### Point of Care testing ,Prothrombin time (PT)Ordered By: Marek Dennis on 71-03-1006FO Coag (PPP) [Time] 11.5 sNormal9.0-12.9Uc Medical CenterComment on above:A hematocrit value greater than 55% may lead to inaccurate results in coagulation testing. Patientshaving hematocrit values >55% require a special collection tube for coagulation studies. Please contact the laboratory at [phone] for redraw instructions.Result Comment: A hematocrit value greater than 55% may lead to inaccurate results in coagulation testing. Patients having hematocrit values >55% require a special collection tube for coagulation studies. Please contact the laboratory at [phone] for redraw instructions.Performed By: #### GLULS #### Point of Care testing ,Serum or plasma anion gap determinationOrdered By: PROVIDER TEMP on 06-14-2025 Anion gap [Moles/Vol]11.5 mmol/LNormal6.0-15.0[facility] Comment on above:Performed By: #### GLULS #### Point of Care testing ,Sodium [Moles/volume] in Serum or PlasmaOrdered By: PROVIDER TEMP on 06-14-2025 Sodium [Moles/Vol]140 mmol/AQwyxzz619-974WsetiijbqUc Medical Center Comment on above:Performed By: #### GLULS #### Point of Care testing ,Troponin I High Sensitivityon 74-04-7290Ljxgfogn I High Bbnsowaczff7Ezgywy6-44 [facility] Physician GroupComment on above:Result Comment: The Troponin units of report have been changed to meet the Chest Pain Accreditation requirement, element EC5.M1l2. Troponin units are changed from pg/ml to ng/L. Also, the decimal is removed and results are in whole numbers. PERFORMED BY: [place] [address] PATHOLOGIST TRANSMISSION ENGINEER CHANEL ROMERO M.D.Performed By: #### GLULS #### Point of Care testing ,Urea nitrogen [Mass/volume] in Serum or PlasmaOrdered By: PROVIDER TEMP on 65-58-9451Drhw nitrogen [Mass/Vol]16 mg/dLNormal7-25Uc Medical CenterComment on above:Performed By: #### GLULS #### Point of Care testing ,X-ray reportOrdered By: eFrmín Wilks on 75-22-5065Evhjf reportKETTERING [place] [address] XRay Report Signed Patient: Noel Paul MR#: [id number] : 1990 Acct:[id number] Age/Sex: 34 / F ADM Date: 5 Loc: ER Room: Type: PRE ER Attending Dr: Copies to: Marek Dennis, DO GAUTHIER, PROVIDER~ Ordering Provider: ABRAHAN PROVIDER Date of Service: 06/14/25 XR/XR chest [...] Wilks M.D. 06/14/2025 10:57 PM Dictation Location: RADIO-PC-17 Transcribed By: DANIELLE 06/14/252256 Dictated By: Fermín Wilks II, MD 06/14/252255 Signed By: 06/14/252256 [facility] Work Phone: XR chest 2V*on 93-58-1190VR chest 2V*[facility] [place] [place] [address] XRay Report Signed Patient: Noel Paul MR#: [id number] : 1990 Acct:[id number] Age/Sex: 34 / F ADM Date: 06/14/25 [...] Wilks M.D. 06/14/2025 10:57 PM Dictation Location: RADIO-PC-17 Transcribed By: DANIELLE 06/14/252256 Dictated By: Fermín Wilks II, MD 06/14/252255 Signed By: 06/14/[address] [place] [address] Physician GroupMR Ankle - right WO contraston 74-90-7120LNKQINDAFW: 1. Postoperative changes of posterior tibialis tendon reattachment with marked thickening of the distal tendon probably due to degeneration or postoperative scarring. No evidence of a complete tear. 2. Tenosynovitis at the master knot of Luis. 3. Chronic changes in the deltoid and spring ligaments as described. Industrial Paramedic: PSCB Transcribe Date/Time: Jun 06 2025 11:37A Dictated by : RADHA TYSON MD This examination was interpreted and the report reviewed and electronically signed by: KATIANA FLORES MD on Jun 06 2025 2:13PM [facility] DIVISION OF RADIOLOGY* * *Final Report* * * DATE OF EXAM: Jun 06 2025 8:43AM [facility] 0164 - MRI ANKLE WO IVCON RT [...] images: No significant additional findings. DIVISION OF RADIOLOGYProvider, [facility] [place] - 06/06/2025 * * *Final Report* * * DATE OF EXAM: Jun 06 2025 8:43AM [facility] 0164 - MRI ANKLE WO IVCON RT [...] the deltoid and spring ligaments as described. Industrial Paramedic: PSCB Transcribe Date/Time: Jun 06 2025 11:37A Dictated by : RADHA TYSON MD This examination was interpreted and the report reviewed and electronically signed by: KATIANA FLORES MD on Jun 06 2025 2:13PM [facility] HospitalRadiology Study observation (narrative)[facility] Ankle - right WO contrastOrdered By: Ccf Provider on 09-69-5063Vxupojoan ClinicMRI ANKLE WO IVCON RTon 44-35-7257IHV ANKLE WO IVCON RT* * *Final Report* * * DATE OF EXAM: Jun 06 2025 8:43AM [facility] 0164 - MRI ANKLE WO IVCON RT [...] the deltoid and spring ligaments as described. Industrial Paramedic: PSCB Transcribe Date/Time: Jun 06 2025 11:37A Dictated by : RADHA TYSON MD This examination was interpreted and the report reviewed and electronically signed by: KATIANA FLORES MD on Jun 06 2025 2:13PM EST [id number] Regional Medical Center [facility] Campus 17-88-2478GPGY Telephone (RAYMONDORRM) NOEL PAUL ([id number]) 1990 F [place] Date Time Provider Department 05/17/25 SEAN MATA During your visit today, we recorded the following information about you: Natalia Barrios CT 05/17/2025 12:02 PM Signed Patients boot in no longer inflating or button is broken. Her mother will be coming in this way next week. She will bring the boot to change it out. Patient lives in [place]. Allergies As of Date: 05/17/2025 Noted Allergy [...] by mouth once daily. 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 - DEXCOM G7 SENSOR [...] 12/28/2024 Encounter Status:Closed by NATALIA BARRIOS on 06/04/25[facility] 59-45-8223EVWMSfqrcr Visit (LOORRM) NOEL PAUL ([id number]) 1990 F [place] Date Time Provider Department 05/16/25 2:30 PM SEAN MATA LOORRMadi During your visit today, we recorded the following information about you: Sean Mata DPM 05/16/2025 2:44 PM Signed Medical intake sheet from May 16, 2025 , was updated by patient, reviewed, and was made part of the patient's chart. Sean Mata DPM PRIMARY SERVICE: [facility] Podiatry SUBJECTIVE: Patient is seen today [...] tablet by mouth once daily. 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 DEXCOM G7 SENSOR eduin [...] [M25.571, G89.29] Order(s):MRI ANKLE WO IVCON RIGHT [[id number]] Order #: [id number] FUTURE Prescriptions as of 05/16/2025 - keTORolac (TORADOL) 10 mg tablet Take 1 tablet by mouth every 6 hours as needed. with food. - aspirin 325 mg tablet Take 1 tablet by mouth once daily. 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 - DEXCOM G7 SENSOR [...] joint [M19*12/28/2024 BMI 60. (more content not included)...NormalBarney Children's Medical CenterOVCandler County Hospitalice Visit (LOORRM) NOEL PAUL ([id number]) 1990 F [place] Date Time Provider Department 05/16/25 2:00 PM CAST TECH JOI PATTIE During your [...] by mouth once daily. 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 - DEXCOM G7 SENSOR [...] 12/28/2024 Encounter Status:Closed by BEVERLY DOBSON on 05/16/25[facility] 64-24-6124QSQVIebijv Visit (LOORR) NOEL PAUL ([id number]) 1990 F [place] Date Time Provider Department 05/06/25 4:00 PM JAIRO BLANKENSHIP During your visit today, we recorded the following information about you: Beverly Dobosn Cast Tech 05/06/2025 4:02 PM Signed Ms. Paul has been informed that the supervising physician today is Dr. Meek. I am carrying out the treatment plan of Dr. Mata. Patient came in today c/o of loose cast heel rubbing. Cast was removed and skin inspected. Skin appeared normal. Cast was reapplied. Patient instructed follow-up with doctor during next scheduled appointment/prn. HAYES Johnson Allergies As of Date: 05/06/2025 Noted Allergy [...] by mouth once daily. 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 - DEXCOM G7 SENSOR [...] 12/28/2024 Encounter Status:Closed by BEVERLY DOBSON on [facility]/06/25[facility] Additional Injections: R subtalar jointon 44-76-6584CqxvrnrSean Mata DPM 04/25/2025 2:38 PM Additional Injections: [...] these instructions. Informed Consent Consent Obtained: Verbal Mather Protocol A moment to CARE was completed. [...] the bedside nurse for hospitalized patients) applicable. [facility] HospitalCNOVon 97-56-8225YMLYJcnnff Visit (LOORRM) NOEL PAUL ([id number]) 1990 F [place] Date Time Provider Department 04/25/25 3:00 PM CAST TECH JOI BLANKENSHIP During your visit today, we recorded the following information about you: Beverly Dobson Cast Tech 04/25/2025 3:14 PM Signed Applied A Short Leg Weightbearing Cast to the right leg. Instructions on cast care given. A medium Cast Shoe was dispensed. Will f/u as scheduled/prn. HAYES Johnson Allergies As of Date: 04/25/2025 Noted Allergy [...] by mouth once daily. 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 - DEXCOM G7 SENSOR [...] 12/28/2024 Encounter Status:Closed by BEVERLY DOBSON on 04/25/25[facility] Visit (LOORRM) NOEL PAUL ([id number]) 1990 F [place] Date Time Provider Department 04/25/25 2:00 PM SEAN MATA During your visit today, we recorded the following information about you: Sean Mata, SHITAL 04/25/2025 2:38 PM Signed PRIMARY SERVICE: [facility] Podiatry SUBJECTIVE: Patient is seen today [...] by mouth once daily. 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 - DEXCOM G7 SENSOR [...] these instructions. Informed Consent Consent Obtained: Verbal Mather Protocol A moment to CARE was completed. [...] right [M25.571] Order(s):Additional Injections: R subtalar joint [NLB747] Order #: [id number] CAST DAVID LEG, SHORT(WALKING) [[id number]] Order #: [id number] [] BUPivacaine (PF) 0.5 % (5 mg/mL) 1 mL injectionDisp: Rfl: [] triamcinolone acetonide (more content not included)...NormalOhiohealth Berger HospitalCNCOon 80-95-9848QDKOTfmlki TextNormalCBarney Children's Medical Center CNOVon 67-57-0480JRKSZzohnj Visit (LOORRM) NOEL PAUL ([id number]) 1990 F [place] Date Time Provider Department 03/14/25 3:45 PM SEAN MATA LOORRMadi During your visit today, we recorded the following information about you: Sean Mata, SHITAL 03/14/2025 4:01 PM Signed PRIMARY SERVICE: [facility] Podiatry SUBJECTIVE: Patient is seen today [...] for up to 10 days. 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 DEXCOM G7 SENSOR eduin [...] ankle brace today SIGNATURE: SHITAL Ward Melody, HAYES 03/14/2025 4:37 PM Signed Dispensed size Medium [...] [Z98.890] Order(s):XR FOOT GENERAL 3V AP/LAT/OBL RIGHT [[id number]] Order #: [id number] FUTURE XR FOOT GENERAL 3V AP/LAT/OBL RIGHT [[id number]] Order #: [id number] FUTURE Prescriptions as of 03/14/2025 - keTORolac (TORADOL) 10 mg tablet Take 1 tablet by mouth every 6 hours as needed. with food. - aspirin 325 mg tablet Take 1 tablet by mouth once daily. 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 - DEXCOM G7 SENSOR [...] joint [M19*12/28/2024 BMI 6 (more content not included)...NormalOhiohealth Berger HospitalXR FOOT 3V AP/LAT/OBL RTon 55-81-2242DA FOOT 3V AP/LAT/OBL RT* * *Final Report* * * DATE OF [...] interval change. IMPRESSION: No significant interval change. Industrial Paramedic: [facility]ITALRI[facility] Transcribe Date/Time: Mar 14 2025 4:01P Dictated by : NEO PERLA MD This examination was interpreted and the report reviewed and electronically signed by: NEO PERLA MD on Mar 14 2025 4:02PM EST [id number] Berger HospitalXR Foot - right AP and Lateral and obliqueon 61-03-9685ZXNOSPSNXD: No significant interval change. Industrial Paramedic: [employer] Transcribe Date/Time: Mar 14 2025 4:01P Dictated by : NEO PERLA MD This examination was interpreted and the report reviewed and electronically signed by: NEO PERLA MD on Mar 14 2025 4:02PM EST DIVISION OF RADIOLOGY* * *Final Report* * * DATE OF [...] or other significant interval change. DIVISION OF RADIOLOGYProvider, [facility] [place] - 03/14/2025 * * *Final Report* * [...] change. IMPRESSION IMPRESSION: No significant interval change. Industrial Paramedic: PSCB Transcribe Date/Time: Mar 14 2025 4:01P Dictated by : NEO PERLA MD This examination was interpreted and the report reviewed and electronically signed by: NEO PERLA MD on Mar 14 2025 4:02PM EST [facility] HospitalRadiology Study observation (narrative)[facility] HospitalXR Foot - right AP and Lateral and obliqueOrdered By: Ccf Provider on 55-88-9085Ntqvgmtjc ClinicCNPNon 84-91-4360UTPMBzyaiccks (ORQ) NOEL PAUL ([id number]) 1990 F [place] Date Time Provider Department 02/20/25 SENA MATA During your visit today, we recorded the following information about you: Marva Bhardwaj 02/20/2025 4:08 PM Signed Bonilla from [facility] PT Dept is calling Sean Mata DPM today to request weightbearing guide lines for patient PT CB [phone] ext [phone] FAX [phone] Patient has been identified by name and birthdate. Duration of symptoms: N/A Person calling: caregiver: Call patient at: [phone] (home) [phone] (cell) Was an appointment scheduled: No Closing statement: Results or non-symptom based questions: Thank you for calling [facility], your call will be returned within the next business day. Marva Brightford, Chris, RAIZA 02/20/2025 4:21 PM Signed Called and informed [...] ABA - Fully Assessed Reason for Visit: Patient Update [1234] Prescriptions as of 02/21/2025 - keTORolac (TORADOL) 10 mg tablet Take 1 tablet by mouth every 6 hours as needed. with food. - aspirin 325 mg tablet Take 1 tablet by mouth once daily. 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 - DEXCOM G7 SENSOR [...] 12/28/2024 Encounter Status:Closed by CHRIS BHATT on 02/20/25[facility]ma[facility]h 74-06-2473TCWOPytovu Visit (LOORRM) NOEL PAUL ([id number]) 1990 F [place] Date Time Provider Department 02/13/25 9:45 AM SEAN MATA LOORRMadi During your visit today, we recorded the following information about you: Sean Mata, Madi 02/13/2025 10:05 AM Signed PRIMARY SERVICE: [facility] Podiatry SUBJECTIVE: Patient is seen today [...] up to 10 days. 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 - DEXCOM G7 SENSOR [...] [Z98.890] Order(s):XR FOOT GENERAL 3V AP/LAT/OBL RIGHT [[id number]] Order #: [id number] FUTURE CONSULT TO PHYSICAL THERAPY [9032] Order #: [id number]: 1 FUTURE Prescriptions as of 02/13/2025 - keTORolac (TORADOL) 10 mg tablet Take 1 tablet by mouth every 6 hours as needed. with food. - aspirin 325 mg tablet Take 1 tablet by mouth once daily. 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 - DEXCOM G7 SENSOR [...] As Of Date 02/13 (more content not included)...NormalBarney Children's Medical CenterOVOffice Visit (LOORRM) NOEL PAUL ([id number]) 1990 F [place] Date Time Provider Department [...] by mouth once daily. 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 - DEXCOM G7 SENSOR [...] 12/28/2024 Encounter Status:Closed by BEVERLY DOBSON on 02/13/25NormalCBarney Children's Medical CenterXR FOOT 3V AP/LAT/OBL RTon 92-96-1147FD FOOT 3V AP/LAT/OBL RT* * *Final Report* * * DATE OF [...] interval change. IMPRESSION: Postoperative findings, as described. Industrial Paramedic: HERNÁN Transcribe Date/Time: Feb 13 2025 9:26A Dictated by : MONALISA HOLGUIN MD This examination was interpreted and the report reviewed and electronically signed by: ANGELA VEGAS MD on Feb 13 2025 10:19AM EST [id number] Berger HospitalXR Foot - right AP and Lateral and obliqueon 91-24-9916IALNIWVVFQ: Postoperative findings, as described. Industrial Paramedic: PSCB Transcribe Date/Time: Feb 13 2025 9:26A Dictated by : MONALISA HOLGUIN MD This examination was interpreted and the report reviewed and electronically signed by: ANGELA VEGAS MD on Feb 13 2025 10:19AM EST DIVISION OF RADIOLOGY* * *Final Report* * * DATE OF [...] or other significant interval change. DIVISION OF RADIOLOGYProvider, [facility] [place] - 02/13/2025 * * *Final Report* * [...] change. IMPRESSION IMPRESSION: Postoperative findings, as described. Industrial Paramedic: PSCB Transcribe Date/Time: Feb 13 2025 9:26A Dictated by : MONALISA HOLGUIN MD This examination was interpreted and the report reviewed and electronically signed by: ANGELA VEGAS MD on Feb 13 2025 10:19AM EST [facility] HospitalRadiology Study observation (narrative)[facility] HospitalXR Foot - right AP and Lateral and obliqueOrdered By: [facility] Provider on 12-93-6457Vxoxpbznq ClinicCNOVon 95-09-8758OFPERadzfv Visit (LOORRM) NOEL PAUL ([id number]) 1990 F [place] Date Time Provider Department [...] Will f/u as scheduled/prn. Beverly Dobson, CT Referring Provider: SELF [200] Allergies As [...] by mouth once daily. 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 - DEXCOM G7 SENSOR [...] 12/28/2024 Encounter Status:Closed by BEVERLY DOBSON on 01/23/25[facility] Visit (LOORRM) NOEL PAUL ([id number]) 1990 F [place] Date Time Provider Department 01/23/25 11:30 AM SEAN MATA During your visit today, we recorded the following information about you: Sean Mata DPM 01/23/2025 11:47 AM Signed PRIMARY SERVICE: [facility] Podiatry SUBJECTIVE: Patient is seen today [...] for up to 10 days. 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 DEXCOM G7 SENSOR eduin [...] [Q74.2] Order(s):XR FOOT GENERAL 3V AP/LAT/OBL RIGHT [[id number]] Order #: [id number] FUTURE PARKING FOR HANDICAPPED [[id number]] Order #: [id number] Prescriptions as of 01/23/2025 - keTORolac (TORADOL) 10 mg tablet Take 1 tablet by mouth every 6 hours as needed. with food. - aspirin 325 mg tablet Take 1 tablet by mouth once daily. 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 - DEXCOM G7 SENSOR [...] for 90 - oxyCOD (more content not included)...NormalMetroHealth [facility]ma [facility] Center 77-00-1560XPEGEajabf TextNormalCHolmes County Joel [facility] 91-81-2516ZKFZ Office Visit (LOORRM) NOEL PAUL ([id number]) 1990 F [place] Date Time Provider Department 01/09/25 10:15 AM SEAN MATA During your visit today, we recorded the following information about you: EsperanzaSean DPM 01/09/2025 10:55 AM Signed PRIMARY SERVICE: [facility] Podiatry SUBJECTIVE: Patient is seen today [...] for up to 10 days. 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 DEXCOM G7 SENSOR eduin [...] [Q74.2] Order(s):XR FOOT GENERAL 3V AP/LAT/OBL RIGHT [[id number]] Order #: [id number] FUTURE Prescriptions as of 01/09/2025 - keTORolac (TORADOL) 10 mg tablet Take 1 tablet by mouth every 6 hours as needed. with food. - aspirin 325 mg tablet Take 1 tablet by mouth once daily. - promethazine (PHENERGAN) 12.5 mg tablet Take 1 tablet by mouth every 8 hours as needed for up to 10 days. 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 - DEXCOM G7 SENSOR [...] Date 01/09/2025 Noted R (more content not included)...Normal [facility] Visit (LOORRM) NOEL PAUL ([id number]) 1990 F [place] Date Time Provider Department 01/09/25 9:30 AM CAST TECH JOI BLANKENSHIP During [...] up to 10 days. - DEXCOM G7 LEATHER CARTRIDGE BELT MAKER [facility] as directed. - DEXCOM G7 SENSOR eduin [...] 12/28/2024 Encounter Status:Closed by SHAYLEE CONCEPCION on 01/09/25[facility] 05-20-2995HGFBOkqwtvobh (LOORRM) NOEL PAUL ([id number]) 1990 F [place] Date Time Provider Department 01/02/25 SEAN MATA During your visit today, we recorded the following information about you: Sean Mata, SHITAL 01/02/2025 12:40 PM Signed Called patient at [phone] to return call regarding pain management. I [...] up to 5 days. 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 - DEXCOM G7 SENSOR [...] sleep apnea) [G47.33] 12/28/2024 Encounter Status:Closed by ESAN MATA on 01/02/25[facility] POSTPROC EVALon [id number] POSTPROC EVALHNO ID: [id number] Author: PETER BROWN MD Service: Anesthesiology Author Type: Anesthesiologist Type: Anesthesia Postprocedure Evaluation Filed: 12/31/2024 11:19 Note Text: POST ANESTHESIA EVALUATION NOTE : 1990 Procedure Summary Date: 12/31/24 Room / Location: [address] Anesthesia Start: 737 Anesthesia Stop: 1005 Procedure: RECONSTRUCTION POSTERIOR TIBIAL TENDON W/EXCISION OF [...] December 31, 2024 TIME: 11:19 AM CSN: [id number] Hospital PRE-OPon [id number] PRE-OPHNO ID: [id number] Author: PETER BROWN MD Service: Anesthesiology Author Type: Anesthesiologist Type: Anesthesia Preprocedure Evaluation Filed: 12/31/2024 07:32 Note Text: ANESTHESIOLOGY DAY OF SURGERY NOTE : 1990 Procedure Information Date/Time: 12/31/24729 Procedure: RECONSTRUCTION POSTERIOR TIBIAL TENDON W/EXCISION OF ACCESSORY TARSAL NAVICULAR BONE (Right: Foot) Location: [facility] LR02 / [facility] Surgeons: Sean Mata DPM Estimated [...] of 12/31/2024 Medication Sig - DEXCOM G7 LEATHER 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 - DEXCOM G7 SENSOR [...] December 31, 2024 TIME: 7:31 AM CSN: [id number] [facility] OP NOTon [id number] OP NOTHNO ID: [id number] Author: SEAN MATA DPM Service: Podiatry Author Type: Physician Type: Brief Op Note Filed: 12/31/2024 09:42 Note Text: BRIEF OPERATIVE / PROCEDURE NOTE LOG ID: [id number] SURGERY/PROCEDURE DATE: 12/31/2024 INCISION/PROCEDURE START TIME: 8:16 AM INCISION CLOSE/PROCEDURE END TIME: SURGEON(S)/PROCEDURALIST(S) AND MANAGEMENT DEVELOPER(S): Surgeons and Role: * Sean Mata DPM [...] Abadphilip DATE: December 31, 2024 TIME: 9:39 AMNormalBarney Children's Medical CenterPNon [id number] (ORQ) NOEL PAUL ([id number]) 1990 F [place] Date Time Provider Department [...] calling: self Call patient at: at home [phone] (home) [phone] (cell) Was an appointment scheduled: No Closing statement: Results or non-symptom based questions: Thank you for calling [facility], your call will be returned within the next business day. Karissa Torrez MA 12/31/2024 3:26 PM Signed Message has been sent directly to Dr Mata's phone. Sean Mata DPM 01/01/2025 3:53 PM Signed Called patient at her Lonnie's cell number at [phone] to check on postop progress. Received voicemail. [...] up to 5 days. 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 - DEXCOM G7 SENSOR [...] 12/28/2024 Encounter Status:Closed by SEAN MATA on 01/01/25NoKeenan Private HospitalOPERATIVE NOon [id number] NOHNO ID: [id number] Author: SEAN MATA DPM Service: Podiatry Author Type: Physician Type: Operative Report Filed: 01/24/2025 08:37 Note Text: [facility] - Operative Report [address] [address] [place] NOEL PAUL : 1990 AGE: 34. SEX: F PATIENT TYPE: OP HOSP SVC: ORTS LOCATION: [id number] ATTENDING PHYSICIAN: Sean Mata DPM CSN NUMBER: [id number] DATE OF SURGERY/PROCEDURE: 12/31/2024 INCISION/PROCEDURE START TIME: 8:16 a.m. INCISION CLOSE/PROCEDURE END TIME: 9:43 a.m. The procedure was performed in conjunction with the resident who was present in the operating room today under my direct supervision from skin to skin. PREOPERATIVE DIAGNOSIS: Painful remaining accessory navicular, right foot. POSTOPERATIVE DIAGNOSIS: Painful remaining accessory navicular, right foot. SURGEON: Sean Mata DPM MANAGEMENT DEVELOPER: Maurice Bernard D.P.M. SURGERY/PROCEDURE: Revisional modified Kidner procedure, right foot, CPT 87711. ANESTHESIA: General with a local field block consisting of 20 mL of 2% lidocaine plain. LOCATION: [facility]. HEMOSTASIS: Right pneumatic thigh tourniquet at 350 [...] with a SutureTak, we then used some meoe-bzv-rjid sutures distally to the distal (more content not included)...NormalOhiohealth Berger HospitalPathology biopsy report Joseph (Tiss)on [id number] REPORTNormal [facility] Berger HospitalComment on above:Order Comment: Specimen Type: TISSUE SPECIMENOrdering Facility: [facility] Address: [address] [place] [address]Osvhdn Comment: Surgical Pathology Report Case: [id number] Authorizing Provider: Sean Mata, Collected: 12/31/2024 09:51 AM DPM Ordering Location: Ambulatory Surgery Received: 12/31/2024 01:28 PM Pathologist: Shemar Pablo MD Specimen: Bone and Soft Tissue, right footPerformed By: #### 45807-7 ####[facility] [place] [id number] [place] [address] [facility] LABCLIA [id number] [address]CLINICAL HISTORYNormalCBarney Children's Medical CenterComhealthsource [place] on above:Order Comment: Specimen Type: TISSUE SPECIMENOrdering Facility: [facility] Address: [address] [place] [address]Byeyyl Comment: Pre-op diagnosis: 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 Bone, right foot, excision: - Osteocartilaginous tissue with degenerative changes and granulation tissue. Performed By: #### 59503-2 ####[facility] [place] [id number] [place] [address] [facility] LABCLIA [id number] [address] [address] [place] [facility] HOSPITALFINAL PERFORMING LABNoKettering Health on above: Order Comment: Specimen Type: TISSUE SPECIMENOrdering Facility: [facility] Address: [address] [place], [place] [address]Result Comment: Diagnostic interpretation performed at: [facility], [address] [facility] [address] CLIA# [id number] Ship Ceiler: SILVIO Talboterformed By: #### 72568-1 ####[facility] [place] [id number] [place] [id number] [facility] LABCLIA [id number] [address]ETGROSS DESCRIPTIONNoKettering Health on above:Order Comment: Specimen Type: TISSUE SPECIMENOrdering Facility: [facility] Address: [address] [place], [place] [address]Result Comment: A. Bone and Soft Tissue Received in formalin, labeled right foot are multiple irregular fragments of mccarthy, hard bone measuring 3 x 3 x 0.9 cm in aggregate. Sectioning reveals mccarthy, hard bone. No gross necrotic areas identified. Strike Warfare/Missile Systems Officer sections are submitted in A1 following formic decalcification. KSZ January 01, 2025 10:57 AM Gross examination performed at [facility], [address] [place], [place] [address]Performed By: #### 76518-9 ####[facility] [place] [id number] [place] [id number] [facility] LABIA [id number] [address] STREETHISTORY PHYSICALon 12-28-2024 HISTORY PHYSICALHNO ID: [id number] Author: ARY ROCHA APRN.CNP Service: ? Author Type: Nurse Practitioner Type: H&P Filed: 12/28/2024 10:56 Note Text: [facility] HISTORY AND PHYSICAL EXAMINATION SERVICE DATE: 12/28/2024 SERVICE TIME: 10:08 AM PRIMARY CARE PHYSICIAN: Monique Emmanuel CNP, ASSESSMENT MANAGER REASON FOR VISIT: Noel Paul is [...] STOP-Bang Score: STOP-Bang Score: 0 (Awaiting CPAP) [id number] Score: Age: <65 Sex: female [id number] Score: ARISCAT Score: Age: <=50 Preoperative SpO2: [...] chart review and guidance on proceeding at [place]. Per Dr Goetz, patient may proceed as scheduled at [place] CONSULTS: Anesthesia Consult chart review The Following [...] tablet Take 1 t (more content not included)...NormalMercy Health Clermont Hospital [id number] Visit (LOORRM) NOEL PAUL ([id number]) 1990 F [place] Date Time Provider Department 12/12/24 10:00 AM SEAN MATA LOORRMadi During your visit today, we recorded the following information about you: Sean Mata, SHITAL 12/12/2024 10:46 AM Signed [facility] Department of Orthopedics [facility] Orthopedic Surgery Name: Noel Paul Date [...] Current Outpatient Medications Medication Sig 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 - DEXCOM G7 SENSOR [...] (None) Encounter Status:Closed by CATHY SANTANA on 12/12/24[facility] HospitalXR FOOT 3V AP/LAT/OBL RTon [id number] FOOT 3V AP/LAT/OBL RT* * *Final Report* * * DATE OF [...] unremarkable. IMPRESSION: No fracture or joint dislocation. Industrial Paramedic: HERNÁN Transcribe Date/Time: Dec 12 2024 9:37A Dictated by : LUX WILLETT MD This examination was interpreted and the report reviewed and electronically signed by: LUC AVILES MD on Dec 12 2024 11:47AM EST [id number] Berger HospitalXR Foot - right AP and Lateral and obliqueon 32-03-6427RIKYJHMHNG: No fracture or joint dislocation. Industrial Paramedic: PSCB Transcribe Date/Time: Dec 12 2024 9:37A Dictated by : LUX WILLETT MD This examination was interpreted and the report reviewed and electronically signed by: LUC AVILES MD on Dec 12 2024 11:47AM EST DIVISION OF RADIOLOGY* * *Final Report* * * DATE OF [...] spurs. Soft tissues appear unremarkable. DIVISION OF RADIOLOGYProvider, [facility] [place] - 12/12/2024 * * *Final Report* * [...] IMPRESSION IMPRESSION: No fracture or joint dislocation. Industrial Paramedic: HERNÁN Transcribe Date/Time: Dec 12 2024 9:37A Dictated by : LUX WILLETT MD This examination was interpreted and the report reviewed and electronically signed by: LUC AVILES MD on Dec 12 2024 11:47AM EST [facility] HospitalRadiology Study observation (narrative)[facility] HospitalXR Foot - right AP and Lateral and obliqueOrdered By: Ccf Provider on 07-74-2588Wtexzsitd Vrvniq58nq [id number] with patient and let her know that per Dr. Her she can bring the disc in and he will take a look at the images and let her know.[facility]36on [id number] would like to know if she can get in earlier than her rescheduled appt since she had to cancel. Patient would like to drop off her MRI results sooner than her appt as well. Please advise at [phone] of [facility] Medical CenterTelephone on [phone] Noel Paul 1990 F Date Provider Department Center 12/03/2024 TIMBO LONG MP ORTHO MPORTHO No family history on file Reason for Visit and Comments: Appointment [375][facility]36on [id number] with patient that she will need to bring disc in. Scheduled patient for Tuesday12/03/24 at 10:30 amNWilson [facility]36Patient would like to know if she needs to make an appointment to bring in her MRI results or if you have received them? Weekend Receptionist does not see them in the chart. Please advise at [phone] of [facility] Medical CenterOffice Visiton 02-32-6959Angwib-up [id number] Noel Paul 1990 F Date Provider Department Center 11/26/2024 KAT VIGIL MP ORTHO MPORTHO No family history on file Level of Service:[address] [place] OFFICE/OUTPATIENT NEW LOW MDM 30 MINUTES (GC) Reason for Visit and Comments: Pain [136][facility]36on [id number] to confirm apptNormalUniversity of Brownfield Regional Medical Centerurgical Pathology Reporton [id number] Pathology ReportMercy Health Kings [facility] Hospital [address] [place] [address]- Surgical Pathology Report Collected Date/Time: 09/05/2024 08:32 [...] CHANGE IN DIAGNOSIS. Addition of clinical information only.TriHealthComment on above:Performed By: #### [id number] #### [facility] [address] [place], [place] [address]Mshjxoeq Pathology Reporton [id number] Pathology Report [facility] [address] [place] [address]- Surgical Pathology Report Collected Date/Time: 09/05/2024 08:32 [...] Description Microscopic examination performed unless gross only specified.TriHealthComment on above:Performed By: #### [id number] #### [facility] [address] [place] [address]Xzscdjs [Mass/volume] in Serum or PlasmaOrdered By: Sean Ruano on 68-48-1924Gzznegw [Mass/Vol]8.8 mg/dL8.6-10.3FLicking Memorial HospitalCarbon dioxide, total [Moles/volume] in Serum or PlasmaOrdered By: Sean Ruano on 16-75-0023HP4 [Moles/Vol]27.3 mmol/L21.0-31.0Uc Medical CenterChloride [Moles/volume] in Serum or PlasmaOrdered By: Sean Ruano on 59-18-2051Algerarf [Moles/Vol]105 mmol/C64-924EmooavwtzUc Medical CenterCreatinine [Mass/volume] in Serum or PlasmaOrdered By: Sean Ruano on 82-68-2018Larphpkbhw [Mass/Vol]0.66 mg/dL0.60-1.20[facility]c Medical CenterGlucose Glucometer (BldC) [Mass/Vol]Ordered By: Pato Avelar on 99-84-3614Fpldfuk [Mass/Vol]106 mg/dLUc Medical Center Comment on above:Random Glucose Reference Range is dependent on time and content of last meal. Glucose of more than 200 mg/dL in a nonstressed, ambulatory subject supports the diagnosis of Diabetes Mellitus.Glucose [Mass/volume] in Serum or PlasmaOrdered By: Sean Ruano on 25-41-7318Zqbssiq [Mass/Vol]107 mg/nY63-788WazobdoccUc Medical CenterComment on above:ADA recommended reference rangeRandom Glucose Reference Range is dependent on time and content of last meal. Glucose of more than 200 mg/dL in a nonstressed, ambulatory subject supports the diagnosisof Diabetes Mellitus.HCG ( test) IA.rapid Ql (U)Ordered By: Sean Ruano on 40-41-1572UUR ( test) Ql (U) NegativeUc Medical CenterNo Panel InformationOrdered By: Pato Avelar on 78-07-4523Dqhgonc Glucose CommentGlu2: cleaned meterUc Medical CenterNo Panel InformationOrdered By: Sean Ruano on 48-26-4340Apvctolst GFR (CKD-EPI)> 60.0 mL/MinUc Medical Center Pharmacy Creatinine Clearance (Actc235.75[facility] Potassium [Moles/volume] in Serum or PlasmaOrdered By: Sean Ruano on 61-86-0616Dmgbcddqp [Moles/Vol]3.8 mmol/L3.5-5.1FAdena Regional Medical Centererum or plasma anion gap determinationOrdered By: Sean Ruano on 70-58-6407Yoxey gap [Moles/Vol]9.5 mmol/L6.0-15.0[facility] Osteopathic Hospitalodium [Moles/volume] in Serum or PlasmaOrdered By: Sean Ruano on 30-80-1211Rrukvs [Moles/Vol]138 mmol/J433-106EckrhoqomUc Medical Center Urea nitrogen [Mass/volume] in Serum or PlasmaOrdered By: Sean Ruano on 18-84-4420Woad nitrogen [Mass/Vol]17 mg/dL7-25[facility] CBC w/ Auto Diffon 57-17-7893Ilmzvunis/100 WBC (Bld)0.5 %Normal0.0-2.0[facility] Va Medical CenterComment on above:Performed By: #### [id number] #### [facility] [address] [place] [address] 337[address]Fwpcsrlti/Leukocytes Auto (Bld) [Pure # fraction]0.1 E9/LNormal 0.0-0.2FLake County Memorial Hospital - WestComment on above:Performed By: #### [id number] #### [facility] [address] [place] [address] 90[address]Fazwdeecxqx (Bld) [#/Vol]0.3 E9/LNormal0.0-0.5FLake County Memorial Hospital - WestComment on above:Performed By: #### [id number] #### [facility] [address] [place] [address] 817[address]Ficzjqjjbus/100 WBC (Bld)2.9 %Normal0.0-8.0[facility] Va Medical CenterComment on above:Performed By: #### [id number] #### [facility] [address] [place] [address] 385[address]Jruzszlntgt distribution width (RBC) [Ratio]15.6 %High10.9-14.2 [facility] Medical CenterComment on above:Performed By: #### [id number] #### [facility] [address] [place] [address] 28751Xdmtsmdoui (Bld) [Volume fraction]39.9 %Ndvaro47.0-46.0[facility] Medical CenterComment on above:Performed By: #### [id number] #### [facility] [address] [place] [address] 18420Otcqhybmaf (Bld) [Mass/Vol]12.8 g/pQLkdkjx56.0-16.0[facility] Medical CenterComment on above:Performed By: #### [id number] #### [facility] [address] [place] [address] 96[address]Yqpdpxgwoje (Bld) [#/Vol]2.3 E9/LNormal1.0-4.0[facility] Medical CenterComment on above:Performed By: #### [id number] #### [facility] [address] [place] [address] 995[address]Dwumszuisju/100 WBC (Bld)20.9 %Xhbpmy24.0-50.0[facility] Medical CenterComment on above:Performed By: #### [id number] #### [facility] [address] [place] [address] 80508UNT (RBC) [Entitic mass]25.4 pgLow27.0-34.0[facility] Medical CenterComment on above:Performed By: #### [id number] #### [facility] [address] [place] [address] 64502BCZC (RBC) [Mass/Vol]32.2 g/oTSxobku07.4-36.0[facility] Medical CenterComment on above:Performed By: #### [id number] #### [facility] [address] [place] [address] 24570DOA (RBC) [Entitic vol]79.0 fLLow80.0-100.0[facility] Medical CenterComment on above:Performed By: #### [id number] #### [facility] [address] [place] [address] 356[address]Aswbbnnlx (Bld) [#/Vol]0.7 E9/LNormal0.2-1.0[facility] Medical CenterComment on above:Performed By: #### [id number] #### [facility] [address] [place] [address] 815[address]Betunzpfmkm (Bld) [#/Vol]7.7 E9/LHigh2.0-7.5FLake County Memorial Hospital - WestComment on above:Performed By: #### [id number] #### [facility] [address] [place] [address] 57908Mlxgnemyxxq/100 WBC (Bld)69.3 %Uhlfyy19.0-75.0[facility] Medical CenterComment on above:Performed By: #### [id number] #### [facility] [address] [place] [address] 24738Rfoxtnnu mean volume (Bld) [Entitic vol]8.3 fLNormal6.4-10.8 [facility] CenterComment on above:Performed By: #### [id number] #### [facility] [address] [place], [place] [address]Cvaoplsjm (Bld) [#/Vol]346.0 E9/MEpmebp675.0-500.0[facility] Medical CenterComment on above:Performed By: #### [id number] #### [facility] [address] [place] [address] 56948KQY (Bld) [#/Vol]5.1 E12/LNormal4.3-5.9[facility] Medical CenterComment on above:Performed By: #### [id number] #### [facility] [address] [place] [address] 015[address]IEY corrected for nucl RBC Auto (Bld) [#/Vol]11.1 E9/LHigh 4.0-11.0[facility] Medical CenterComment on above:Performed By: #### [id number] #### [facility] [address] [place] [address] 725[address]Cuzsytf for Treatmenton 23-44-5596Qyasaes for Treatment [id number]#1.00TIFFNormalDayton Va Medical CenterHEMATOLOGYOrdered By: SYSTEM SYSTEM on 60-65-1662Dbxvkrnoe/100 WBC (Bld) 0.5 %Normal0.0 - 2.0 %Remisol HemeBasophils/Leukocytes Auto (Bld) [Pure # fraction]0.1 E9/LNormal0.0 - 0.2 E9/LRemisol HemeEosinophils (Bld) [#/Vol]0.3 E9/LNormal0.0 - 0.5 E9/LRemisol HemeEosinophils/100 WBC (Bld)2.9 %Normal0.0 - 8.0 %Remisol HemeErythrocyte distribution width (RBC) [Ratio]15.6 %High10.9 - 14.2 %Remisol HemeHematocrit (Bld) [Volume fraction]39.9 %Wgozyf38.0 - 46.0 % Remisol HemeHemoglobin (Bld) [Mass/Vol]12.8 g/dNJrqxrx23.0 - 16.0 gm/dLRemisol HemeLymphocytes (Bld) [#/Vol]2.3 E9/LNormal1.0 - 4.0 E9/LRemisol Heme Lymphocytes/100 WBC (Bld)20.9 %Tauulh39.0 - 50.0 %Remisol HemeMCH (RBC) [Entitic mass]25.4 pgLow27.0 - 34.0 pgRemisol HemeMCHC (RBC) [Mass/Vol]32.2 g/dLNormal 31.4 - 36.0 gm/dLRemisol HemeMCV (RBC) [Entitic vol]79.0 fLLow80.0 - 100.0 fL Remisol HemeMonocytes (Bld) [#/Vol]0.7 E9/LNormal0.2 - 1.0 E9/LRemisol Heme Monocytes/100 WBC (Bld)6.4 %Normal4.0 - 14.0 %Remisol HemeNeutrophils (Bld) [#/Vol]7.7 E9/LHigh2.0 - 7.5 E9/LRemisol HemeNeutrophils/100 WBC (Bld)69.3 % Budayk85.0 - 75.0 %Remisol HemePlatelet mean volume (Bld) [Entitic vol]8.3 fL Normal6.4 - 10.8 fLRemisol HemePlatelets (Bld) [#/Vol]346.0 E9/UTkmsta318.0 - 500.0 E9/LRemisol HemeRBC (Bld) [#/Vol]5.1 E12/LNormal4.3 - 5.9 E12/LRemisol HemeWBC corrected for nucl RBC Auto (Bld) [#/Vol]11.1 E9/LHigh4.0 - 11.0 E9/L Remisol HemePhysician Orderon 85-25-4204Lxojpoodr Order [id number]#1.00[facility] Medical CenterGLYCOHEMOGLOBIN A1Con 30-70-7596YFE RECOMMENDATIONSEE BELOWNoDiley Ridge Medical CenterComment on above:Result Comment: ADA RECOMMENDED LIMIT 4.0 - 6.0 ADA THERAPEUTIC TARGET < 7.0 ACTION SUGGESTED > 7.0Performed By: #### A1C #### [facility] [address] [address] [address] Benito DupreeGlucose [Mass/Vol]105 mg/dLNoDiley Ridge Medical CenterComment on above:Performed By: #### A1C #### [facility] [address] [address] [address] Benito DupreeHbA1c (Bld) [Mass fraction]5.3 %Normal4.5-6.2The [facility] HospitalComment on above:Performed By: #### A1C #### [facility] [address] [place] [address] Dr. Benito Bartonvid-19 PCR (CVDTB)on 90-25-8520SRWD-CoV-2 (COVID-19) RNA MUKUND+probe Ql (Unsp spec)Not detectedNormalNOT DETECTEDThe [facility] Comment on above:Result Comment: This test is not yet approved or cleared by the [place] FDA. When there are no FDA-approved or cleared tests available, and other criteria are met, FDA can make tests available under an emergency access mechanism called an Emergency Use Authorization (EUA). The EUA for this test is supported by the Regional Telecommunications Specialist of Health and Human Service's (HHS's) declaration that circumstances exist to justify the emergency use of in vitro diagnostics for the detection and/or diagnosis of the virus that causes COVID- 19. This EUA will remain in effect (meaning [...] of clinical signs and symptoms consistent with SARS-CoV-2.Performed By: #### CVDTBH #### [facility] [address] [place] [address] Dr. Benito Johnson AND B AGon 68-73-9604XKCKTGCSCYJIH [facility] on above:Result Comment: Negative for Flu A protein angiten. Infection due to Flu A cannot be ruled out. FluA angiten in the sample may be below the detection limit of the test.Performed By: #### INFLUAB #### [facility] [address] [place] [address] Dr. Benito DupreeINFLUBNEGHSEE [facility] on above: Result Comment: Negative for Flu B protein antigen. Infection due to Flu B cannot be ruled out. FluB antigen in the sample may be below the detection limit of the test.Performed By: #### INFLUAB #### [facility] [address] [place] [address] Dr. Benito Johnson AGNegativeNormalNEGATIVE SEE COMMENTThe [facility] on above:Performed By: #### INFLUAB #### [facility] [address] [place] [address] Dr. Benito Saucedo AGNegativeNormalNEGATIVE SEE COMMENTThe [facility] on above:Performed By: #### INFLUAB #### [facility] [address] [place] [address] Dr. Benito DupreeGLYCOHEMOGLOBIN A1Con [id number] RECOMMENDATIONSEE BELOWSouthwest General Health Center on above:Result Comment: ADA RECOMMENDED LIMIT 4.0 - 6.0 ADA THERAPEUTIC TARGET < 7.0 ACTION SUGGESTED > 7.0Performed By: #### A1C #### [facility] [address] [place] [address] Dr. Benito DupreeGlucose [Mass/Vol]143 mg/dLSelect Medical Specialty [facility] on above:Performed By: #### A1C #### [facility] [address] [place] [address] Dr. Benito DupreeHbA1c (Bld) [Mass fraction]6.6 %Critically high4.5-6.2The Ankita HospitalComment on above:Performed By: #### A1C #### [facility] [address] [address] [address] Benito DupreeLIPID PROFILEon [id number]-HDL RATIO NORMSKindred Hospital DaytonComment on above:Result Comment: 3.3 - 4.4 LOW RISK 4.4 - 7.1 AVERAGE RISK 7.1 - 11.0 MODERATE RISK >11.0 HIGH RISKPerformed By: #### INFLUAB #### [facility] [address] [address] [address] Benito DupreeCholesterol [Mass/Vol]154 mg/dLNormal<=200[facility] Comment on above:Performed By: #### INFLUAB #### [facility] [address] [place] [address] Dr. Benito DupreeCholesterol in HDL [Mass/Vol]29 mg/dLCritically ito30-55TpkSelect Medical Cleveland Clinic Rehabilitation Hospital, AvonComment on above:Performed By: #### INFLUAB #### [facility] [address] [address] [address] Benito DupreeCholesterol in LDL [Mass/Vol]98.2 mg/dLOhio State University Wexner Medical CenterComment on above:Performed By: #### INFLUAB #### [facility] [address] [place] [address] Dr. Benito DupreeCholesterol.total/Cholesterol in HDL [Mass ratio]5.3 {ratio} NormalSelect Medical Cleveland Clinic Rehabilitation Hospital, AvonComment on above:Performed By: #### INFLUAB #### [facility] [address] [place] [address] Dr. Benito DupreeHDL NORMAL> or = 60 mg/dl - LOW CARDIOVASCULAR RISK <40 mg/dl - HIGH CARDIOVASCULAR RISKOhio State University Wexner Medical CenterComment on above:Performed By: #### INFLUAB #### [facility] [address] [place] [address] Dr. Benito DupreeLDL CALC NORMALSEE Kindred HealthcareComment on above:Result Comment: <100 mg/dl OPTIMAL 100 - 129 mg/dl NEAR OR ABOVE OPTIMAL 130 - 159 mg/dl BORDERLINE HIGH 160 - 189 mg/dl HIGH >190 mg/dl VERY HIGH Performed By: #### INFLUAB #### [facility] [address] [place] [address] Dr. Benito DupreeTriglyceride [Mass/Vol]134 mg/dLNormal<=150The [facility] Comment on above:Performed By: #### INFLUAB #### [facility] [address] [place] [address] Dr. Benito DupreeVLDL CALC26.8 mg/dLNormalThe [facility] HospitalComment on above: Performed By: #### INFLUAB #### [facility] [address] [place] [address] Dr. Benito DupreeINSULINon [id number] uIU/mLNormal2.6-24.9The [facility] HospitalComment on above:Performed By: #### INFLUAB #### [facility] [address] [place] [address] Dr. Benito DupreeT4, T3U, FTI LABCORPon [id number] Thyroxine Index2.6Normal 1.2-4.9The [facility] HospitalComment on above:Performed By: #### THYLC #### [facility] [address] [place] [address] Dr. Benito DupreeT3 Tuuetd38 %Uiyuls32-17Cwf [facility] HospitalComment on above: Performed By: #### THYLC #### [facility] [address] [place] [address] Dr. Benito DupreeT4 [Mass/Vol]8.8 ug/dLNormal4.5-12.0The [facility] HospitalComment on above:Performed By: #### THYLC #### [facility] [address] [place] [address] Dr. Benito DupreeCBC AUTO DIFFon [id number] #0.1 103/ulNormal0.0-0.1The [facility] HospitalComment on above:Performed By: #### INFLUAB #### [facility] [address] [place] [address] Dr. Benito DupreeBasophils/100 WBC (Bld)0.8 %Normal0.2-2.0The [facility] Comment on above:Performed By: #### INFLUAB #### [facility] [address] [place] [address] Dr. Benito Simon #0.3 103/ulNormal0.0-0.7The [facility] HospitalComment on above: Performed By: #### INFLUAB #### [facility] [address] [place] [address] Dr. Benito Buschosinophils/100 WBC (Bld)2.8 %Normal0.9-7.0The [facility] Comment on above:Performed By: #### INFLUAB #### [facility] [address] [place] [address] Dr. Benito Buschrythrocyte distribution width (RBC) [Ratio]15.4 %Critically high 11.0-15.0The [facility] HospitalComment on above:Performed By: #### INFLUAB #### [facility] [address] [place] [address] Dr. Benito DupreeHematocrit (Bld) [Volume fraction]43.7 %Ybasmk32.0-48.0The [facility] HospitalComment on above:Performed By: #### INFLUAB #### [facility] [address] [place] [address] Dr. Benito DupreeHemoglobin (Bld) [Mass/Vol]14.2 g/tIAqjktz38.0-16.0The [facility] HospitalComment on above:Performed By: #### INFLUAB #### [facility] [address] [place] [address] Dr. Benito Reyes #0.08 10e3/ulCritically high0.00-0.03The [facility] Comment on above:Performed By: #### INFLUAB #### [facility] [address] [place] [address] Dr. Benito Reyes %0.9 %Critically high0.0-0.5The [facility] HospitalComment on above:Performed By: #### INFLUAB #### [facility] [address] [place] [address] Dr. Benito Rasheed #2.3 103/ulNormal1.2-3.8The [facility] HospitalComment on above:Performed By: #### INFLUAB #### [facility] [address] [place] [address] Dr. Benito Alvarezhocytes/100 WBC (Bld)24.3 %Cjrfch55.5-60.0The [facility] HospitalComment on above:Performed By: #### INFLUAB #### [facility] [address] [place] [address] Dr. Benito Ordoñez DIFF REQNONormalThe [facility] HospitalComment on above: Performed By: #### INFLUAB #### [facility] [address] [place] [address] Dr. Benito Rowe (RBC) [Entitic mass]26.1 pgCritically low26.7-34.0The [facility] HospitalComment on above:Performed By: #### INFLUAB #### [facility] [address] [place] [address] Dr. Benito Rowe (RBC) [Mass/Vol]32.5 g/nQOoezbq43.9-35.2The [facility] HospitalComhealthsource [facility] on above:Performed By: #### INFLUAB #### [facility] [address] [place] [address] Dr. Benito Rowe (RBC) [Entitic vol]80.2 fLCritically low81.0-99.0The [facility] HospitalComment on above:Performed By: #### INFLUAB #### [facility] [address] [place] [address] Dr. Benito Guajardo #0.5 103/ulNormal0.3-0.8The [facility] HospitalComhealthsource [facility] on above:Performed By: #### INFLUAB #### [facility] [address] [place] [address] Dr. Benito Beverlyocytes/100 WBC (Bld)5.2 %Normal1.7-12.0The [facility] Comment on above:Performed By: #### INFLUAB #### [facility] [address] [place] [address] Dr. Benito Gotti #6.1 103/ulNormal1.4-6.5The [facility] HospitalComment on above:Performed By: #### INFLUAB #### [facility] [address] [place] [address] Dr. Benito Badilloutrophils/100 WBC (Bld)66.0 %Fwguzs05.0-75.0The [facility] HospitalComment on above:Performed By: #### INFLUAB #### [facility] [address] [place] [address] Dr. Benito Moralez mean volume (Bld) [Entitic vol]9.9 fLNormal9.5-13.5The [facility] HospitalComment on above:Performed By: #### INFLUAB #### [facility] [address] [place] [address] Dr. Benito DupreePLT291 103/ndHjmkch782-448Axu [facility] HospitalComment on above: Performed By: #### INFLUAB #### [facility] [address] [place] [address] Dr. Benito DupreeRBC5.45 106/ulCritically high4.20-5.40[facility] Comment on above:Performed By: #### INFLUAB #### [facility] [address] [place] [address] Dr. Benito DupreeWBC9.3 103/ulNormal4.0-11.0The [facility] HospitalComment on above: Performed By: #### INFLUAB #### [facility] [address] [place] [address] Dr. Benito Quick LDLon [id number] in LDL [Mass/Vol]50 mg/dL NormalThe [facility] HospitalComment on above:Performed By: #### THYLC #### [facility] [address] [place] [address] Dr. Benito SpiveyDL NORMALSEE Kindred HealthcareComhealthsource [facility] on above: Result Comment: <100 mg/dl OPTIMAL 100 - 129 mg/dl NEAR OR ABOVE OPTIMAL 130 - 159 mg/dl BORDERLINE HIGH 160 - 189 mg/dl HIGH >190 mg/dl VERY HIGHPerformed By: #### THYLC #### [facility] [address] [place] [address] Dr. Benito DupreeGLYCOHEMOGLOBIN A1Con [id number] RECOMMENDATIONSEE BELOWVeterans Health AdministrationComhealthsource saginaw on above:Result Comment: ADA RECOMMENDED LIMIT 4.0 - 6.0 ADA THERAPEUTIC TARGET < 7.0 ACTION SUGGESTED > 7.0Performed By: #### A1C #### [facility] [address] [place] [address] Dr. Benito DupreeGlucose [Mass/Vol]332 mg/dLOhio State University Wexner Medical CenterComhealthsource [place] on above:Performed By: #### A1C #### [facility] [address] [place] [address] Dr. Benito DupreeHbA1c (Bld) [Mass fraction]13.2 %Critically high4.5-6.2[facility] on above:Performed By: #### A1C #### [facility] [address] [place] [address] Dr. Benito Segovia [id number] [Mass/Vol]53.0 ug/tFJfiqgr89.0-170.0[facility] on above:Performed By: #### INFLUAB #### [facility] [address] [place] [address] Dr. Benito DupreeLIPID PROFILEon [id number]-HDL RATIO NORMSEE [facility] HealthcareComhealthsource [facility] on above:Result Comment: 3.3 - 4.4 LOW RISK 4.4 - 7.1 AVERAGE RISK 7.1 - 11.0 MODERATE RISK >11.0 HIGH RISKPerformed By: #### THYLC #### [facility] [address] [place] [address] Dr. Benito DupreeCholesterol [Mass/Vol]260 mg/dLCritically high<=200The [facility] HospitalComment on above:Performed By: #### THYLC #### [facility] [address] [place] [address] Dr. Benito DupreeCholesterol in HDL [Mass/Vol]23 mg/dLCritically itn36-49Vez [facility] HospitalComment on above:Performed By: #### THYLC #### [facility] [address] [place] [address] Dr. Benito Esquivelesterol.total/Cholesterol in HDL [Mass ratio]11.3 {ratio} NormalSelect Medical Cleveland Clinic Rehabilitation Hospital, AvonComment on above:Performed By: #### THYLC #### [facility] [address] [place] [address] Dr. Benito Hall NORMAL> or = 60 mg/dl - LOW CARDIOVASCULAR RISK <40 mg/dl - HIGH CARDIOVASCULAR RISKNoDiley Ridge Medical CenterComment on above:Performed By: #### THYLC #### [facility] [address] [place] [address] Dr. Benito DupreeTriglyceride [Mass/Vol]1711 mg/dLCritically high<=150The [facility] HospitalComment on above:Performed By: #### THYLC #### [facility] [address] [place] [address] Dr. Benito DupreeVLDL OTSZ940.2 mg/dLNoDiley Ridge Medical CenterComhealthsource saginaw on above: Performed By: #### THYLC #### [facility] [address] [place] [address] Dr. Benito DupreePROF 14(COMP METB)on [id number] [Mass/Vol]3.2 g/dL Critically low3.4-5.0[facility], AvonComment on above:Performed By: #### THYLC #### [facility] [address] [place] [address] Dr. Benito DupreeAlbumin/Globulin [Mass ratio]0.7 {ratio}NormalThe [facility] HospitalComment on above:Performed By: #### THYLC #### [facility] [address] [place] [address] Dr. Yilan ChangALP [Catalytic activity/Vol]92 U/ITofzdn89-064Kag [facility] HospitalComment on above:Performed By: #### THYLC #### [facility] [address] [place] [address] Dr. Benito BaxterT [Catalytic activity/Vol]41 U/POzwbsw32-16Ooz [facility] HospitalComment on above:Performed By: #### THYLC #### [facility] [address] [place] [address] Dr. Benito Ambroseon gap [Moles/Vol]14.1 mmol/LNormalSelect [facility] [place] Comment on above:Performed By: #### THYLC #### [facility] [address] [place] [address] Dr. Benito DupreeAST [Catalytic activity/Vol]16 U/GRleoci23-82Dgx [facility] HospitalComment on above:Performed By: #### THYLC #### [facility] [address] [place] [address] Dr. Benito DupreeBilirubin [Mass/Vol]0.9 mg/dLNormal0.2-1.0[facility] Comment on above:Performed By: #### THYLC #### [facility] [address] [place] [address] Dr. Benito DupreeCalcium [Mass/Vol]9.1 mg/dLNormal8.5-10.1[facility] Comment on above:Performed By: #### THYLC #### [facility] [address] [place] [address] Dr. Benito DupreeChloride [Moles/Vol]97 mmol/LCritically azk57-953FepSelect Medical Cleveland Clinic Rehabilitation Hospital, AvonComment on above:Performed By: #### THYLC #### [facility] [address] [place] [address] Dr. Benito DupreeCO2 [Moles/Vol]24.9 mmol/CUkmnha31.0-32.0The [facility] Comment on above:Performed By: #### THYLC #### [facility] [address] [place] [address] Dr. Benito DupreeCreatinine [Mass/Vol]0.67 mg/dLNormal0.55-1.02The [facility] HospitalComment on above:Performed By: #### THYLC #### [facility] [address] [place] [address] Dr. Benito BuschGFR-AF VINCENTIAN>60Normal>=60The [facility] HospitalComment on above:Performed By: #### THYLC #### [facility] [address] [place] [address] Dr. Benito BuschGFR-NON AF VINCENTIAN>60Normal>=60The [facility] HospitalComment on above:Performed By: #### THYLC #### [facility] [address] [place] [address] Dr. Benito DupreeGlobulin (S) [Mass/Vol]4.6 g/dLNormalThe [facility] HospitalComment on above:Performed By: #### THYLC #### [facility] [address] [place] [address] Dr. Benito DupreeGlucose [Mass/Vol]402 mg/dLCritically nljz27-074Mbb [facility] HospitalComment on above:Performed By: #### THYLC #### [facility] [address] [place] [address] Dr. Benito DupreePotassium [Moles/Vol]4.0 mmol/LNormal3.5-5.1The [facility] Comment on above:Performed By: #### THYLC #### [facility] [address] [place] [address] Dr. Benito DupreeProtein [Mass/Vol]7.8 g/dLNormal6.4-8.2The [facility] Comment on above:Performed By: #### THYLC #### [facility] [address] [place] [address] Dr. Benito DupreeSodium [Moles/Vol]132 mmol/LCritically lbn732-520Nnw [facility] HospitalComment on above:Performed By: #### THYLC #### [facility] [address] [place] [address] Dr. Benito DupreeUrea nitrogen [Mass/Vol]10.0 mg/dLNormal7.0-18.0The [facility] HospitalComment on above:Performed By: #### THYLC #### [facility] [address] [place] [address] Dr. Benito Belle nitrogen/Creatinine [Mass ratio]14.9 mg/mgNoDiley Ridge Medical CenterComment on above:Performed By: #### THYLC #### [facility] [address] [place] [address] Dr. Benito Butts 17-30-7809RVE0.676 uIU/mLNormal0.358-3.740The [facility] HospitalComment on above:Performed By: #### THYLC #### [facility] [address] [place] [address] Dr. Benito DupreeVITAMIN D 25 OHon [id number] D 25-OH13.9 ng/mLNormalThe [facility] HospitalComment on above:Performed By: #### INFLUAB #### [facility] [address] [place] [address] Dr. Benito Sanchez [place]ANGES[place] BELOWOhio State University Wexner Medical CenterComment on above: Result Comment: <20 ng/mL Vit D deficient 20 - <30 ng/mL Vit D insufficient 30 - 100 ng/mL Vit D sufficient >100 ng/mL Potential ToxicityPerformed By: #### INFLUAB #### [facility] [address] [place] [address] Dr. Benito DupreeAMYLASEon 09-02-9572Qxuikag [Catalytic activity/Vol]29 U/LNormal 25-115The [facility] HospitalComment on above:Performed By: #### INFLUAB #### [facility] [address] [place] [address] Dr. Benito Cerna AUTO DIFFon 25-00-7813VZPE #0.1 103/ulNormal0.0-0.1The [facility] HospitalComment on above:Performed By: #### INFLUAB #### [facility] [address] [place] [address] Dr. Benito DupreeBasophils/100 WBC (Bld)0.5 %Normal0.2-2.0The [facility] Comment on above:Performed By: #### INFLUAB #### [facility] [address] [place] [address] Dr. Benito Simon #0.3 103/ulNormal0.0-0.7The [facility] HospitalComment on above: Performed By: #### INFLUAB #### [facility] [address] [place] [address] Dr. Benito Buschosinophils/100 WBC (Bld)2.0 %Normal0.9-7.0The [facility] Comment on above:Performed By: #### INFLUAB #### [facility] [address] [place] [address] Dr. Benito Buschrythrocyte distribution width (RBC) [Ratio]15.3 %Critically high 11.0-15.0The [facility] HospitalComment on above:Performed By: #### INFLUAB #### [facility] [address] [place] [address] Dr. Benito DupreeHematocrit (Bld) [Volume fraction]41.5 %Webvxq57.0-48.0The [facility] HospitalComment on above:Performed By: #### INFLUAB #### [facility] [address] [place] [address] Dr. Benito DupreeHemoglobin (Bld) [Mass/Vol]12.7 g/wJBfevnv31.0-16.0The [facility] HospitalComment on above:Performed By: #### INFLUAB #### [facility] [address] [place] [address] Dr. Benito Reyes #0.06 10e3/ulCritically high0.00-0.03The [facility] Comment on above:Performed By: #### INFLUAB #### [facility] [address] [place] [address] Dr. Benito Reyes %0.4 %Normal0.0-0.5The [facility] HospitalComment on above: Performed By: #### INFLUAB #### [facility] [address] [address] [address] Benito Rasheed #1.9 103/ulNormal1.2-3.8The [facility] HospitalComment on above:Performed By: #### INFLUAB #### [facility] [address] [place] [address] Dr. Benito Hendersonmphocytes/100 WBC (Bld)13.9 %Critically low20.5-60.0The [facility] HospitalComment on above:Performed By: #### INFLUAB #### [facility] [address] [place] [address] Dr. Benito YusufUAL DIFF REQNONormalThe [facility] HospitalComment on above: Performed By: #### INFLUAB #### [facility] [address] [place] [address] Dr. Benito Escobar (RBC) [Entitic mass]24.7 pgCritically low26.7-34.0The [facility] HospitalComment on above:Performed By: #### INFLUAB #### [facility] [address] [place] [address] Dr. Benito Rowe (RBC) [Mass/Vol]30.6 g/sBFjxzfl27.9-35.2The [facility] HospitalComment on above:Performed By: #### INFLUAB #### [facility] [address] [place] [address] Dr. Benito Rowe (RBC) [Entitic vol]80.6 fLCritically low81.0-99.0The [facility] HospitalComment on above:Performed By: #### INFLUAB #### [facility] [address] [place] [address] Dr. Benito Guajardo #0.5 103/ulNormal0.3-0.8The [facility] HospitalComment on above:Performed By: #### INFLUAB #### [facility] [address] [place] [address] Dr. Benito Beverlyocytes/100 WBC (Bld)4.0 %Normal1.7-12.0The [facility] Comment on above:Performed By: #### INFLUAB #### [facility] [address] [place] [address] Dr. Benito BadilloUT #10.6 103/ulCritically high1.4-6.5The [facility] Comment on above:Performed By: #### INFLUAB #### [facility] [address] [place] [address] Dr. Benito Badilloutrophils/100 WBC (Bld)79.2 %Critically high43.0-75.0The [facility] HospitalComment on above:Performed By: #### INFLUAB #### [facility] [address] [place] [address] Dr. Benito DupreePlatelet mean volume (Bld) [Entitic vol]9.3 fLCritically low 9.5-13.5The [facility] HospitalComment on above:Performed By: #### INFLUAB #### [facility] [address] [place] [address] Dr. Benito DupreePLT391 103/zvQyvnhk235-727Cse [facility] HospitalComment on above: Performed By: #### INFLUAB #### [facility] [address] [place] [address] Dr. Benito DupreeRBC5.15 106/ulNormal4.20-5.40The [facility] HospitalComment on above:Performed By: #### INFLUAB #### [facility] [address] [place] [address] Dr. Benito DupreeWBC13.4 103/ulCritically high4.0-11.0The [facility] HospitalComment on above:Performed By: #### INFLUAB #### [facility] [address] [place] [address] Dr. Benito DupreeCT ABD/PELV W CONon [id number] ABD/PELV W CONEXAMINATION: CT ABD/PELV W CON HISTORY: GENERALIZED ABDOMINAL [...] Electronically authenticated by: WESTLEY JHA Date: 2022-06-01 14:59[facility] URINE PROFILEon [id number] Ql (U)NegativeNormal NEGATIVESelect Medical [facility], AvonComment on above:Performed By: #### MARYA VILLEGASR #### [facility] [address] [place] [address] Dr. Benito Reyna (U)SL CLOUDYAbnormalCLEARThGuernsey Memorial HospitalComment on above:Performed By: #### MARYA VILLEGASR #### [facility] [address] [address] [address] Benito Morales (U)YELLOWNormalYELLOWSelect Medical [facility] Hospital, AvonComment on above: Performed By: #### MARYA VILLEGASR #### [facility] [address] [address] [address] Benito Chambers micrscopic examination will be performed if indicated. NormalSelect Medical Cleveland Clinic Rehabilitation Hospital, AvonComment on above:Performed By: #### MARYA VILLEGASR #### [facility] [address] [address] [address] Benito DupreeGlucose Ql (U)NegativeNormalNEGATIVEThe [place] HospitalComment on above:Performed By: #### NELLY, ERUR #### [facility] [address] [address] [address] Benito DupreeHemoglobin Ql (U)LARGEAbnormalNEGATIVESelect Medical [facility] [place] Comment on above:Performed By: #### NELLY, ERUR #### [facility] [address] [address] [address] Benito Camones Ql (U)NegativeNormalNEGATIVEWvumedicine [facility] Hospital HospitalComment on above:Performed By: #### NELLY, ERUR #### [facility] [address] [address] [address] Benito DupreeLEUKOCYTESNegativeNormalNEGATIVEThe [place] HospitalComment on above:Performed By: #### NELLY, ERUR #### [facility] [address] [address] [address] Benito DupreeNitrite Ql (U)NegativeNormalNEGATIVESelect Medical [facility] Hospital, AvonComment on above:Performed By: #### NELLY ERUR #### [facility] [address] [address] [address] Benito DupreepH (U)5.5 [pH]Normal5-9The [facility] HospitalComment on above: Performed By: #### NELLY ERUR #### [facility] [address] [address] [address] Benito DupreeSPEC GRAVITY1.525Nqhpnh9.005-<=1.025The [place] HospitalComment on above:Performed By: #### NELLY, ERUR #### [facility] [address] [address] [address] Benito Reynolds PROTEINTRACENormalNEGATIVE/ TRACEThe [facility] HospitalComment on above:Performed By: #### NELLY, ERUR #### [facility] [address] [address] [address] Benito Mcdaniels MICRO INDINDICATEDNormalThe [place] HospitalComment on above: Performed By: #### MARYA VILLEGASR #### [facility] [address] [place] [address] Dr. Benito Espinozabilinogen Qn (U)1.0 {Tuyet'U}/dLNormal0.2 - 1.0The [facility] HospitalComment on above:Performed By: #### NELLY ERUR #### [facility] [address] [place] [address] Dr. Benito DupreeLACTATE/LACTIC ACIDon [id number] [Moles/Vol]1.1 mmol/L Normal0.4-1.9The [facility] HospitalComment on above:Performed By: #### LACT #### [facility] [address] [place] [address] Dr. Benito DupreeLIPASEon 72-04-1123Itjdpl [Catalytic activity/Vol]111.0 U/LNormal 73.0-393.0The [facility] HospitalComment on above:Performed By: #### INFLUAB #### [facility] [address] [place] [address] Dr. Benito DupreePREG HCG QUALon 62-40-6115BOVLYRXYE, QUALNegativeNormalNEGATIVE The [facility] HospitalComment on above:Performed By: #### PREG #### [facility] [address] [place] [address] Dr. Benito DupreePROF 14(COMP METB)on 52-21-6315Orwhrjq [Mass/Vol]3.6 g/dLNormal 3.4-5.0The [facility] HospitalComment on above:Performed By: #### INFLUAB #### [facility] [address] [place] [address] Dr. Benito DupreeAlbumin/Globulin [Mass ratio]0.7 {ratio}NormalThe [facility] HospitalComment on above:Performed By: #### INFLUAB #### [facility] [address] [place] [address] Dr. Benito DupreeALP [Catalytic activity/Vol]90 U/QJjgoow05-615Xwi [facility] HospitalComment on above:Performed By: #### INFLUAB #### [facility] [address] [address] [address] Benito Cuellar [Catalytic activity/Vol]39 U/DImrmkj74-83Hbq [facility] HospitalComment on above:Performed By: #### INFLUAB #### [facility] [address] [address] [address] Benito DupreeAnion gap [Moles/Vol]13.0 mmol/LNormalThe [facility] Comment on above:Performed By: #### INFLUAB #### [facility] [address] [address] [address] Benito DupreeAST [Catalytic activity/Vol]25 U/HLskksj96-63Iue [facility] HospitalComment on above:Performed By: #### INFLUAB #### [facility] [address] [place] [address] Dr. Benito DupreeBilirubin [Mass/Vol]1.1 mg/dLCritically high0.2-1.0The [facility] HospitalComment on above:Performed By: #### INFLUAB #### [facility] [address] [place] [address] Dr. Benito DupreeCalcium [Mass/Vol]9.4 mg/dLNormal8.5-10.1[facility] [place] Comment on above:Performed By: #### INFLUAB #### [facility] [address] [place] [address] Dr. Benito DupreeChloride [Moles/Vol]99 mmol/BKxavou13-766Lpc [facility] Comment on above:Performed By: #### INFLUAB #### [facility] [address] [place] [address] Dr. Benito DupreeCO2 [Moles/Vol]27.3 mmol/NBraxfc55.0-32.0The [facility] Comment on above:Performed By: #### INFLUAB #### [facility] [address] [place] [address] Dr. Benito DupreeCreatinine [Mass/Vol]0.87 mg/dLNormal0.55-1.02The [facility] HospitalComment on above:Performed By: #### INFLUAB #### [facility] [address] [address] [address] Benito BuschGFR-AF VINCENTIAN>60Normal>=60The [facility] HospitalComment on above:Performed By: #### INFLUAB #### [facility] [address] [address] [address] Benito BuschGFR-NON AF VINCENTIAN>60Normal>=60The [facility] HospitalComment on above:Performed By: #### INFLUAB #### [facility] [address] [address] [address] Benito DupreeGlobulin (S) [Mass/Vol]4.8 g/dLNormalThe [facility] HospitalComment on above:Performed By: #### INFLUAB #### [facility] [address] [place] [address] Dr. Benito DupreeGlucose [Mass/Vol]218 mg/dLCritically adre89-428Fzj [facility] HospitalComment on above:Performed By: #### INFLUAB #### [facility] [address] [place] [address] Dr. Benito DupreePotassium [Moles/Vol]4.1 mmol/LNormal3.5-5.1The [facility] Comment on above:Performed By: #### INFLUAB #### [facility] [address] [place] [address] Dr. Benito DupreeProtein [Mass/Vol]8.4 g/dLCritically high6.4-8.2The [facility] HospitalComment on above:Performed By: #### INFLUAB #### [facility] [address] [address] [address] Benito DupreeSodium [Moles/Vol]135 mmol/LCritically znk623-461Bun [facility] HospitalComment on above:Performed By: #### INFLUAB #### [facility] [address] [place] [address] Dr. Benito DupreeUrea nitrogen [Mass/Vol]15.0 mg/dLNormal7.0-18.0The [facility] HospitalComment on above:Performed By: #### INFLUAB #### [facility] [address] [address] [address] Benito DupreeUrea nitrogen/Creatinine [Mass ratio]17.2 mg/mgNoPeoples Hospital on above:Performed By: #### INFLUAB #### [facility] [address] [address] [address] Benito Bee MICROSCOPIC ONLYon [id number]G SEEN [facility] on above:Performed By: #### NELLY, ERUR #### [facility] [address] [address] [address] Benito Alvaradocttez identified Cx Nom (U)NOT INDICATEDSelect Medical Specialty [facility] on above:Performed By: #### NELLY, ERUR #### [facility] [address] [place] [address] Dr. Benito Camargo SEENNormalNONE SEENSelect [facility], [facility] on above:Performed By: #### NELLY, ERUR #### [facility] [address] [address] [address] Benito Kirbyystals LM Nom (Urine sed)NONE SEENNormalNONE SEENSelect [facility], [facility] on above:Performed By: #### NELLY, ERUR #### [facility] [address] [place] [address] Dr. Oliver ChangEpithelial cells LM Ql (Urine sed)MODERATEAbnormalNONE SEEN /RARE [facility] on above:Performed By: #### NELLY, ERUR #### [facility] [address] [place] [address] Dr. Benito RamirezCOUSTRACEAbnormalNONE SEENSelect [facility] on above:Performed By: #### NELLY, ERUR #### [facility] [address] [address] [address] Benito DupreeZzalsEAH2-2Seyctopz9-2PntSelect Medical Special[facility], [facility] on above:Performed By: #### NELLY, ERUR #### [facility] [address] [address] [address] Benito DupreeWBC0-2AbnormalNONE SEENSelect Medical [facility] Rehabilitation Hospital, AvonComment on above: Performed By: #### MARYA VILLEGASR #### [facility] [address] [place], [place] [address] Dr. Benito DupreeXR hand RT min 3V*on 78-48-1942YK hand RT min 3V*[facility] [employer] [facility] Other XR hand RT min 3V*[facility] [employer] [facility] Other XR hand RT min 3V*[address] [place] [address] [facility] Other XR hand RT min 3V*[place], [place] [address]M[facility]v [employer] Other XR hand RT min 3V*[facility] Other XR hand RT min 3V*[facility] [employer] Other XR hand RT min 3V*Patient: Noel Paul MR#: [id number] [employer] Other XR hand RT min 3V*: 1990 Acct:[id number] [employer] Other XR hand RT min 3V*Age/Sex: 31 / F ADM Date: 03/22/22 [place] [employer] Other XR hand RT min 3V*Loc: XDUCLY Room: Type: [facility] [employer] Other XR hand RT min 3V*Attending Dr: Monique SANDOVAL [place] [employer] Other XR hand RT min 3V*Ordering Provider: RIGOBERTO Diasst. [facility] [employer] Other XR hand RT min 3V*Date of Service: 03/22/22[place] [employer] Other XR hand RT min 3V* XR/XR hand RT min 3V*: Finger pain, rightParshall [employer] Other XR hand RT min 3V*Copies to: JOSEMANUEL DiasC [place] [employer] Other XR hand RT min 3V*3 viewsRIGHT hand plain filmParshall [employer] Other XR hand RT min 3V*COMPARISON:[facility] [employer] Other XR hand RT min 3V*HISTORY:Fell going upstairs. RIGHT ring finger injury.[facility] Other XR hand RT min 3V*No fracture, dislocation or focal soft tissue abnormality seen.[facility] Other XR hand RT min 3V* XR/XR hand RT min 3V*[facility] Other XR hand RT min 3V*IMPRESSION:No acute findingsParshall [employer] Other XR hand RT min 3V*Impression dictated by: Ta Galvan M.D.03/22/2022 4:42 [facility] [employer] Other XR hand RT min 3V*Dictation Location: [address] [employer] Other XR hand RT min 3V*Transcribed By: DANIELLE 03/22/22 [facility] [employer] Other XR hand RT min 3V*Dictated By: Ta Galvan DO 03/22/[address] [place] [address] [employer] Other XR hand RT min 3V*Signed By:[facility] Other XR hand RT min 3V*03/22/[address] [place] [address] [employer] Other Vital Signs Date TimeVital SignValuePerforming MxhzedtbdVjsdzzpj98-60-8852 09:58-0400Body mulsjs823.5 cmPato Avelar DPM Work Phone: [facility] HospitalSqwufafwrj57-20-9636 09:58-0400Body mass index (BMI) [Ratio]56.7 kg/a1Cmnfwwetantonio Avelar DPM Work Phone: [facility] HospitalMulacpxddw62-79-1607 09:58-0400Body .62 kgNicantonio Avelar DPM Work Phone: [facility] HospitalJytefpzvfm82-25-8930 09:58-0400Respiratory rate18 /minNicantonio Avelar DPM Work Phone: [facility] HospitalPigzmghtqp30-74-2836 14:15-0400Body virgam541.48 cmPamela Lien MUD ANALYSIS OPERATOR-C Work Phone: 1(357)392-[address] [place], [place] 1215408-11-2025 14:15-0400 Body mass index (BMI) [Ratio]62.4 kg/m7Xbwbgk Lien MUD ANALYSIS OPERATOR-C Work Phone: 1(824)832-[address] [place], [place] 1215408-11-2025 14:15-0400 Body emnrpt668.67 kgPamela Lien MUD ANALYSIS OPERATOR-C Work Phone: 1(172)119-[address] [place], [place] 1215408-11-2025 14:15-0400 Diastolic blood ywpurvik22 mm[Hg]Monique Emmanuel MUD ANALYSIS OPERATOR-C Work Phone: 1(635)438-[address] [place], [place] 1215408-11-2025 14:15-0400 Heart rate86 /minPamela Lien MUD ANALYSIS OPERATOR-C Work Phone: 1(962)886-[address] [place], [place] 1215408-11-2025 14:15-0400 Respiratory rate18 /minPamela Lien MUD ANALYSIS OPERATOR-C Work Phone: 1(911)053-[address] [place], [place] 1215408-11-2025 14:15-0400 SaO2% (BldA) [Mass fraction]97 %Moniquegisselle Whitleymer MUD ANALYSIS OPERATOR-C Work Phone: 1(878)993-[address] [place], [place] 1215408-11-2025 14:15-0400 Systolic blood yzxrvdjn172 mm[Hg]Monique Emmanuel MUD ANALYSIS OPERATOR-C Work Phone: [phone])[address] [place], [place] 6296507-20-2025 11:26-0400 Body fsdgozypzlz21 [degF]Monique Lien MUD ANALYSIS OPERATOR-C Work Phone: 1(962)[address] [place], [place] 6296507-20-2025 11:26-0400 Diastolic blood mm[Hg]Monique Lien MUD ANALYSIS OPERATOR-C Work Phone: 1(071)[address] [place], [place] 6296507-20-2025 11:26-0400 Heart rate78 /minPamela Lien MUD ANALYSIS OPERATOR-C Work Phone: 1(658)[address] [place], [place] 6296507-20-2025 11:26-0400 Respiratory rate20 /minPamela Lien MUD ANALYSIS OPERATOR-C Work Phone: 1(799)[address] [place], [place] 6296507-20-2025 11:26-0400 SaO2% (BldA) [Mass fraction]93 %Monique Lien MUD ANALYSIS OPERATOR-C Work Phone: 1(977)[address] [place], [place] 6296507-20-2025 11:26-0400 Systolic blood cgnsftxa001 mm[Hg]Monique Lien MUD ANALYSIS OPERATOR-C Work Phone: 1(344)[address] [place], [place] 6296507-20-2025 06:00-0400 Body uvnkid507 kgPamela Lien MUD ANALYSIS OPERATOR-C Work Phone: 1(856)[address] [place], [place] 6296507-19-2025 03:55-0400 Body bjuinq301.48 cmPamela Lien MUD ANALYSIS OPERATOR-C Work Phone: 1(315)[address] [place], [place] 6296507-19-2025 03:00-0400 Diastolic blood ohgcqieb09 mm[Hg]Monique Lien MUD ANALYSIS OPERATOR-C Work Phone: 1(431)[address] [place], [place] 6296507-19-2025 03:00-0400 Heart rate80 /minPamela Lien MUD ANALYSIS OPERATOR-C Work Phone: 1(698)[address] [place], [place] 6296507-19-2025 03:00-0400 Inhaled oxygen flow rate2 L/minPamela Lien MUD ANALYSIS OPERATOR-C Work Phone: [phone])[address]07-19-2025 03:00-0400 Respiratory rate18 /minMonique Whitleymer MUD ANALYSIS OPERATOR-C Work Phone: 1(412)095-[address] [place], [place] 1215407-19-2025 03:00-0400 SaO2% (BldA) [Mass fraction]98 %Monique Whitleymer MUD ANALYSIS OPERATOR-C Work Phone: 1(063)458-[address] [place], [place] 1215407-19-2025 03:00-0400 Systolic blood diopncgz189 mm[Hg]Monique Lien MUD ANALYSIS OPERATOR-C Work Phone: 1(009)592-[address] [place], [place] 1215407-18-2025 22:16-0400 Body .48 cmPlorene Whitleymer MUD ANALYSIS OPERATOR-C Work Phone: 1(039)514-[address] [place], [place] 1215407-18-2025 22:16-0400 Body yizagyomiom72.9 [degF]Monique Whitleymer MUD ANALYSIS OPERATOR-C Work Phone: 1(827)388-[address] [place], [place] 1215407-18-2025 22:16-0400 Body wwuanm046.14 kgMonique Whitleymer MUD ANALYSIS OPERATOR-C Work Phone: 1(638)213-[address] [place], [place] 1215404-24-2025 14:16-0400 Body pcovml181.5 cmNicholas Brown DPM Work Phone: 1(065)4-[address] [place], [place] [address]Feectmkhsz30-00-0837 14:16-0400Body mass index (BMI) [Ratio]56.7 kg/x5Wwexwfno Brown DPM Work Phone: 1(948)[address] [place], [place] [address]Pgfdrijaaz40-22-7367 14:16-0400Body .62 kgNicholas Brown DPM Work Phone: 1(667)0-[address] [place], [place] [address]Zjkkrashru58-07-8775 14:16-0400Respiratory rate16 /minNicholas Brown DPM Work Phone: 1(280)1-[address] [place], [place] [address]Knsdprkhfw15-53-1542 09:06-0400Body tkvebd592.5 cmNicholas Brown DPM Work Phone: [phone]-[facility] [address]Uzyjtpyzas72-55-6136 09:06-0400Body mass index (BMI) [Ratio]56.7 kg/l1Tskucfer Brown DPM Work Phone: 1(578)259-[address] [place], [place] [address]10-2025 09:06-0400Body lgtnzi409.62 kgPato Avelar DPM Work Phone: [facility] HospitalTdduyrnggk34-67-6473 09:06-0400Respiratory rate16 /Helen Avelar DPM Work Phone: [facility] HospitalCwljboocrx56-45-0122 17:00-0400Body yhftcd692.48 [facility]20[facility] 17:00-0400Body mass index (BMI) [Ratio]59.2 kg/t7IqudrojfkU[facility] Medical [facility]03-11-2025 17:00-0400Body cyilljsyslk19.2 [degF][facility]03-11-2025 17:00-0400Body .96 kg[facility]03-11-2025 17:00-0400Diastolic blood lyrbsxob57 mm[Hg][facility]03-11-2025 17:00-0400 Heart rate82 /[facility]03-11-2025 17:00-0400 Respiratory rate18 /[facility]03-11-2025 17:00-0400 SaO2% (BldA) [Mass fraction]98 %[facility]03-11-2025 17:00-0400Systolic blood asaqihuh485 mm[Hg][facility] 12-28-2024 09:54-0500Body amoggu512.5 cmPacc 3 Work Phone: [facility]01-31-2025 09:54-0500Body mass index (BMI) [Ratio]62.06 kg/m2Pacc 3 Work Phone: [phone]01-31-2025 09:54-0500Body temperature 97.39 [degF]Pacc 3 Work Phone: [facility]01-31-2025 09:54-0500Body biocks769.9 kgPacc 3 Work Phone: [facility]01-31-2025 09:54-0500Diastolic blood rqrepbps50 mm[Hg]Pacc 3 Work Phone: [facility]01-31-2025 09:54-0500Heart wjhp495 /minPacc 3 Work Phone: [facility]01-31-2025 09:54-0500Respiratory rate 16 /minPacc 3 Work Phone: [facility]01-31-2025 09:54-4533DfX0% (BldA) [Mass fraction]98 %Pacc 3 Work Phone: [facility]01-31-2025 09:54-0500Systolic blood hvsxvhbi612 mm[Hg]Pacc 3 Work Phone: [facility]11-27-2024 14:24-0500Body isjuxp274.5 cmNicholas Brown DPM Work Phone: [place] [address]Ocrsvddvjm81-87-6021 14:24-0500Body mass index (BMI) [Ratio]56.7 kg/e4Gxjrtxmq Brown DPM Work Phone: 1(704)872-[address] [place] [address]-27-2024 14:24-0500Body devsui018.62 kgNicholas Brown DPM Work Phone: [place] [address]Hllijlikbh60-59-2479 14:24-0500Respiratory rate18 /minNicholas Brown DPM Work Phone: [facility] HospitalTmotxjiyki70-10-1880 14:48-0500Body tnuwxu748.5 cmNicholas Brown DPM Work Phone: [address] [address]Rxpacxhjzd26-09-6904 14:48-0500Body mass index (BMI) [Ratio]56.7 kg/e6Bieqpjvs Brown DPM Work Phone: [place] [address]Npcmfczeie25-50-3164 14:48-0500Body cqfpuu303.62 kgNicholas Brown DPM Work Phone: [place] [address]Vxskihgufr07-20-2946 14:48-0500Diastolic blood msnpotau34 mm[Hg]Ptao Avelar DPM Work Phone: 1(419)[address]11-07-2024 14:48-0500Heart rate82 /min Pato Avelar DPM Work Phone: 1(102)[address] [place] [address]-07-2024 14:48-0500Systolic blood zuagmveu629 mm[Hg]Pato Avelar DPM Work Phone: [phone] [place], [place] [address]Fqtpvftxhc06-11-9610 14:37-0400Body wkrytj124.5 cmPato Avelar DPM Work Phone: 1(932)[address] [place], [place] 7702310-24-2024 14:37-0400Body mass index (BMI) [Ratio]56.7 kg/a3JxiqwhzaPtao Avelar DPM Work Phone: 1(127)[address] [place] [address]-24-2024 14:37-0400Body .62 kgPato Avelar DPM Work Phone: 1(716)[facility] [place], [place] [address]Aasalbtahw06-19-9472 14:37-0400Diastolic blood wliyhssv64 mm[Hg]Pato Avelar DPM Work Phone: 1(848)[address] [place] [address]-24-2024 14:37-0400Heart rate79 /min Pato Avelar DPM Work Phone: [phone] [place] [address]-24-2024 14:37-0400Systolic blood ykdfnccq543 mm[Hg]Pato Avelar DPM Work Phone: 1(912)[address] [place], [place] 7702310-17-2024 14:46-0400Body tpvath356.5 cmPato Avelar DPM Work Phone: 1(249)[address] [place] [address]-17-2024 14:46-0400Body mass index (BMI) [Ratio]56.7 kg/m8WsyqmhzjPato Avelar DPM Work Phone: 1(182)[address] [place] [address]-17-2024 14:46-0400Body pyngfw283.62 kgPato Avelar DPM Work Phone: 1(258)844-[address] [place] [address]-17-2024 14:46-0400Diastolic blood mm[Hg]Pato Avelar DPM Work Phone: 1(251)[address] [place], [place] [address]274417-2024 14:46-0400Heart rate85 /min Pato Avelar DPM Work Phone: 1(383)665-[address] [place] [address]-17-2024 14:46-0400Systolic blood dqyxltyn438 mm[Hg]Pato Rodo DPM Work Phone: 1(001)071-[address] [place], [place] [address]Wlobfudhei81-89-6837 14:58-0400Body mpxmia061.5 cmPato Rodo DPM Work Phone: 1(650)742-[address] [place], [place] [address]Ioldcczbmb35-64-3156 14:58-0400Body mass index (BMI) [Ratio]56.7 kg/s3MjufojbmPato Avelar DPM Work Phone: 1(408)218-[address] [place] [address]-03-2024 14:58-0400Body .62 kgPato Rodo DPM Work Phone: 1(003)110-[address] [place] [address]-03-2024 14:58-0400Diastolic blood amlrxwug79 mm[Hg]Pato Avelar DPM Work Phone: 1(259)3-[address] [place], [place] [address]Kqzksljkxz14-77-3321 14:58-0400Heart rate75 /min Pato Avelar DPM Work Phone: 1(995)907-[address] [place] [address]-03-2024 14:58-0400Respiratory rate18 /minPato Rodo DPM Work Phone: 1(704)647-[address] [place], [place] [address]Ogsighhbgt47-52-2933 14:58-0400Systolic blood ofiedqvv352 mm[Hg]Pato Avelar DPM Work Phone: 1(486)230-[address] [place], [place] [address]Iaurpackrl48-90-9549 14:52-0400Body .5 cmPato Avelar DPM Work Phone: 1(260)553-[address] [place] [address]-05-2024 14:52-0400Body mass index (BMI) [Ratio]56.7 kg/c4NiwuzvunPato Avelar DPM Work Phone: [place] [address]Bezvilkkyh55-16-8684 14:52-0400Body wirifg054.62 kgPato Avelar DPM Work Phone: 1(667)863-[address] [place] [address]-05-2024 14:52-0400Diastolic blood pkvfjeih42 mm[Hg]Patoanuj Avelar DPM Work Phone: [facility] HospitalDbfczouxls12-61-6323 14:52-0400Heart rate82 /min Pato Avelar DPM Work Phone: [facility] HospitalHncerutukn85-36-7091 14:52-0400Systolic blood nzxaawio971 mm[Hg]Pato Avelar DPM Work Phone: [facility] HospitalXppolnbrcq82-95-0964 14:58-0400Body ljfybz602.5 cmPaul Biedenbach DO Work Phone: [facility] HospitalCusjtwwkvt48-79-7876 14:58-0400Body mass index (BMI) [Ratio]56.7 kg/m2Paul Biedenbach DO Work Phone: [facility] HospitalStmsyzifky26-14-4909 14:58-0400Body .62 kgPaul Biedenbach DO Work Phone: [facility] HospitalIdnlgsbkrk30-45-3687 15:25-0400Diastolic blood acruvuwl77 mm[Hg]MUD ANALYSIS OPERATOR-C Monique Emmanuel Work Phone: 1(647)079-[address] [place], [place] 1215406-19-2024 15:25-0400 Heart rate80 /minNP-C Monique Emmanuel Work Phone: 1(280)147-[address] [place], [place] 1215406-19-2024 15:25-0400 Respiratory rate22 /minNP-C Monique Whitleymer Work Phone: 1(318)682-[address] [place], [place] 1215406-19-2024 15:25-0400 SaO2% (BldA) [Mass fraction]94 %MUD ANALYSIS OPERATOR-C Monique Whitleymer Work Phone: 1(013)611-[address] [place], [place] 1215406-19-2024 15:25-0400 Systolic blood mm[Hg]MUD ANALYSIS OPERATOR-C Monique Emmanuel Work Phone: 1(597)842-[address] [place], [place] 1215406-19-2024 12:57-0400 Body uvgwjnloeyz59.6 [degF]MUD ANALYSIS OPERATOR-C Monique Emmanuel Work Phone: [facility]06-19-2024 12:57-0400 Inhaled oxygen flow rate6 L/minNP-C Monique Emmanuel Work Phone: [facility]06-19-2024 10:38-0400 Body mass index (BMI) [Ratio]56.5 kg/m2NP-C Monique Emmanuel Work Phone: [facility]06-19-2024 10:31-0400 Body .48 cmNP-C Monique Emmanuel Work Phone: [facility]06-19-2024 10:31-0400 Body .16 kgNP-C Monique Emmanuel Work Phone: 1(374)880-[address] [place], [place] 1215405-29-2024 13:27-0400 Diastolic blood fmlhpavt32 mm[Hg]Pato Avelar [facility]05-29-2024 13:27-0400Heart rate64 /Helen Avelar [facility]05-29-2024 13:27-0400Mean blood usliuphf783 mm[Hg]Pato Avelar [facility]05-29-2024 13:27-0400 Systolic blood lyzkvprn504 mm[Hg]Pato Avelar [facility]05-29-2024 13:26-0400Heart rate65 /Helen Avelar [facility]05-29-2024 13:26-0400 Respiratory rate16 /Helen Avelar [facility]05-29-2024 13:26-4850WuA7% (BldA) [Mass fraction]93 %Pato Avelar [facility]05-29-2024 13:26-0400Blood Pressure Rupesh Avelar [facility]05-29-2024 13:26-0400Body yprjyvljrsl41.42 [degF]Pato Avelar [facility]05-29-2024 13:26-0400 Diastolic blood xcjonvwl65 mm[Hg]Pato Avelar [facility]05-29-2024 13:26-0400Mean blood lzpqgryn805 mm[Hg]Pato Avelar [facility]05-29-2024 13:26-0400 Systolic blood smtgdtne080 mm[Hg]Pato Avelar [facility]04-01-2024 17:36-0400Body igzxcr712.94 cmNP-C Monique Emmanuel Work Phone: 7(084)095-[address] [place], [place] 1215404-01-2024 17:36-0400 Body mass index (BMI) [Ratio]58.4 kg/m2NP-C Monique Emmanuel Work Phone: 1(940)264-[address] [place], [place] 1215404-01-2024 17:36-0400 Body lalfetvlnyi84.7 [degF]MUD ANALYSIS OPERATOR-C Monique Emmanuel Work Phone: 1(514)866-[address] [place], [place] 1215404-01-2024 17:36-0400 Body xdbujq819.38 kgNP-C Monique Emmanuel Work Phone: 1(362)816-[address] [place], [place] 1215404-01-2024 17:36-0400 Heart rate87 /minNP-C Monique Emmanuel Work Phone: 6(251)129-[address] [place], [place] 1215404-01-2024 17:36-0400 Respiratory rate18 /minNP-C Monique Whitleymer Work Phone: 2(864)307-[address] [place], [place] 1215404-01-2024 17:36-0400 SaO2% (BldA) [Mass fraction]97 %MUD ANALYSIS OPERATOR-C Monique Emmanuel Work Phone: 5(002)519-[address] [place], [place] 1215404-25-2022 16:45-0400 Body atabzh591.94 cmPlorene Dudley Other [facility] Other 04-25-2022 16:45-0400Body mass index (BMI) [Ratio] 58.38 kg/s0PwqlpeMonique Dudley Other [facility] Other 04-25-2022 16:45-0400Body rpprwcrymly66.9 [degF]Monique Dudley Other [facility] Other 04-25-2022 16:45-0400Body mgubnl144.16 kgMonique Dudley Other [facility] Other 04-25-2022 16:45-0400Diastolic blood avfikkiz10 mm[Hg] Monique Suemond Other [facility] Other 04-25-2022 16:45-0400Respiratory rate20 /minMonique Dudley Other [facility] Other 04-25-2022 16:45-2110AvP0% (BldA) [Mass fraction]98 % Monique Suemond Other [facility] Other 04-25-2022 16:45-0400Systolic blood wkmvjazh081 mm[Hg] Monique Suemond Other [facility] Other Encounters Encounter DateEncounter TypeCare ProviderFacilityStart: 09-05-2025 End: 63-44-7533Pevrgu flowsheetPato Avelar DPMadi Work Phone: [facility] PODIATRYStart: 09-05-2025 End: 98-74-0066Qamkcp flowsheetNicholas A Brown DPM Work Phone: [facility] CI PODIATRYStart: 09-05-2025 End: 97-41-4210Xqdizn outpatient visit 15 minutesPato Avelar DPM Work Phone: [facility] CI PODIATRYComment on above:Capsulitis of metatarsophalangeal (MTP) joint of right foot (Primary Dx); Contracture of right ankle; Posterior tibial tendonitis of right legStart: 09-05-2025 End: 72-43-1031dljpqmhcjsTMMDYYDM A BROWNNot AvailableStart: 09-03-2025 End: 99-67-8085nufshgdovwWWDINY S CRAMERFacility:[facility] Centertart: 2025 End: 95-75-0598nnbjddjfdoKardrq Sue Cramer MUD ANALYSIS OPERATOR-C Work Phone: [facility] Work Phone: Start: 2025 End: 29-69-8365Ccvoyrb encounter procedureInge Adler MD-[facility] Work Phone: Start: 06-15-2025 End: 10-83-9564lvqgqioazxYfzzmq Sue CramerFacility:[facility] Hospitaltart: 81-12-0802Umlecmxckd and management of inpatientDanuria Mclaughlin MD-[facility] [place] [facility] Work Phone: Start: 91-59-6957Peu-patient / Non-visitLinfranklin Adler MD-[facility] Work Phone: Start: 53-65-5846wajkebmgcjk encounterPabeverley Emmanuel MUD ANALYSIS OPERATOR-C Work Phone: [facility] Work Phone: Start: 06-11-2025 End: 34-68-2956uyqinywdhiVXNQFM S CRAMERFacility:[facility]ertart: 06-11-2025 End: 48-88-6429Vrntvfpdp to same day surgery centerSean Mata DPM Work Phone: OrthopaedicsComment on above:S/P foot surgery, right (Primary Dx); Chronic pain of right ankleStart: 06-11-2025 End: 70-16-5390Sqnrottszjcl consultation with patientChvonnie Mata DPMadi Work Phone: OrthopaedicsStart: 76-84-9011lvsuagafucNTMVUY Spencer EMMANUEL Facility:[facility]art: 06-06-2025 End: 61-11-2493Pqifjdviqc hospital visit by physiciani [facility] (Lg Bore/1.5t)Radiology MRIComment on above:Chronic pain of right ankle [M25.571, G89.29]Start: 05-17-2025 End: 22-54-3506Zwjfrhupz encounterChristop Henrry Mata DPM Work Phone: OrthopaedicsStart: 05-16-2025 End: 11-13-1305Swlhecj encounter procedureChristopher Henrry Mata DPM Work Phone: OrthopaedicsComment on above:S/P foot surgery, right (Primary Dx); Chronic pain of right ankleS/P foot surgery, right (Primary Dx)Start: 05-16-2025 End: 91-88-7964gsecomqztsQQJUWL S TRANMERFacility:[facility] Centertart: 05-06-2025 End: 23-58-4124Umlicbp encounter procedureCast Tech Joi Work Phone: OrthopaedicsComment on above:S/P foot surgery, right (Primary Dx)Start: 05-06-2025 End: 46-44-8637rlyoryrwlvIYFPRY S TRANMERFacility:[facility]ertart: 05-03-2025 End: 70-94-5024avnifgmpviWwgbtqxqmzw Henrry Esperanza DPM Work Phone: OrthopaedicsStart: 05-03-2025 End: 18-55-0537Iwspfqc encounter procedureChristopher W Esperanza DPM Work Phone: OrthopaedicsComment on above:CastStart: 04-25-2025 End: 67-39-5760Hhxwwnn encounter procedureChristopher Henrry Mata DPM Work Phone: OrthopaedicsComment on above:Sinus tarsitis, right (Primary Dx)S/P foot surgery, right (Primary Dx)Start: 04-25-2025 End: 95-82-3666fgfwdmorhwOOYNCE S CRAMERFacility:[facility]ertart: 04-16-2025 End: 54-57-9877vmanqwdngvWQNGIE S CRAMERFacility:[facility] Centertart: 03-21-2025 End: 77-79-0250Hpubsp outpatient visit 15 minutesPato Avelar DPM Work Phone: [facility] CI PODIATRYComment on above:Capsulitis of metatarsophalangeal (MTP) joint of right foot (Primary Dx); Type 2 diabetes mellitus without complication, unspecified whether mcfp insulin useStart: 03-21-2025 End: 00-33-9714semxwjixtcBGRQOQVT A BROWNNot AvailableStart: 03-21-2025 End: 26-47-5422Osiflv Mateo Avelar DPM Work Phone: [facility] PODIATRYStart: 03-21-2025 End: 86-94-9869Xllxkf Mateo Avelar DPM Work Phone: [facility] PODIATRYStart: 03-14-2025 End: 90-78-8412Hgxvrhdgsf hospital visit by physicianSaúl Martínez 1 Work Phone: RadiologyComment on above:S/P foot surgery, right [Z98.890]Start: 03-14-2025 End: 26-45-4502zyyliqegzoBvfz Ezra RT(R)RadiologyComment on above:Radiology XRStart: 03-14-2025 End: 66-69-5147Rsbpcnk encounter procedureSara Ezra RT(R)RadiologyComment on above:S/P foot surgery, right (Primary Dx)Start: 03-07-2025 End: 54-52-5686Mjaoyq flowsAlbert Elizabeth Rodo DPM Work Phone: [facility] CI PODIATRYStart: 03-07-2025 End: 21-35-1418Usevdy kingstonCleocornelius Johnson Rodo DPM Work Phone: [facility] CI PODIATRYStart: 03-07-2025 End: 22-31-6871Dniytd outpatient visit 15 minutesPato Elizabeth Rodo DPM Work Phone: [facility] CI PODIATRYComment on above:Capsulitis of metatarsophalangeal (MTP) joint of right foot (Primary Dx)Start: 03-07-2025 End: 78-87-6994rceczmyfvrDONTJQGG A BROWNNot AvailableStart: 02-20-2025 End: 81-77-2643Ufathucwd encounterChristopher Henrry Mata DPM Work Phone: [facility] Rheum InstituteComment on above:Patient UpdateStart: 02-13-2025 End: 28-36-4222Vutanmh encounter procedureMaura Shell RT(R)Radiology Comment on above:S/P foot surgery, right (Primary Dx)Start: 02-13-2025 End: 36-78-2318baubyqlxpyNmgrua M Shimrock RT(R)RadiologyComment on above:Radio Gen RMPStart: 02-13-2025 End: 00-17-8328Bwqpsmsjkd hospital visit by physicianSaúl Andrews Work Phone: RadiologyComment on above:S/P foot surgery, right [Z98.890]Start: 02-05-2025 End: 56-53-3800mwwvimbafjDlagrmwyxOhioHealth Doctors Hospital Work Phone: Start: 02-05-2025 End: 12-78-2934Ouyednt encounter procedureFirgavino Physician [facility] Work Phone: Start: 01-23-2025 End: 07-48-1504vooknagallNKHPGD S CRAMERFacility:[facility]ertart: 01-23-2025 End: 81-63-4961Jxpuaoo encounter procedureChristopher W Esperanza DPM Work Phone: OrthopaedicsComment on above:S/P foot surgery, right (Primary Dx); Accessory navicular bone of right footS/P foot surgery, right (Primary Dx)Start: 23-54-4899jswniamszlJJCUXN S CRAMERFacility:[facility]ertart: 01-09-2025 End: 61-64-8185zxgadlyxpuGFCKIS S CRAMERFacility:[facility]ertart: 01-09-2025 End: 12-75-8800Rebivvv encounter procedureChristopher W Esperanza DPM Work Phone: OrthopaedicsComment on above:S/P foot surgery, right (Primary Dx); Accessory navicular bone of right footS/P foot surgery, right (Primary Dx)Start: 01-02-2025 End: 02-82-9456Rjslameib encounterChristopher W Esperanza DPM Work Phone: OrthopaedicsStart: 12-31-2024 End: 73-80-4486Tzcpxzuxn encounterChristopher W Esperanza DPM Work Phone: Orth and Rheum InstituteComment on above:Surgical FollowupStart: 12-31-2024 End: 58-32-2203nhwdnnjdtfNNTWAEXSYAS W HERBERTFacility:[facility] Start: 12-28-2024 End: 98-17-0312Swcnrxqpp to [facility] 3 Work Phone: Pre AnesthesiaStart: 12-28-2024 End: 20-73-8464tlpgfizyikTQUKQN S TRANMERFacility:[facility] Centertart: 12-28-2024 End: 15-06-1211Phdeeqdppv [facility] 3 Work Phone: Pre AnesthesiaComment on above:Pre-op evaluation (Primary Dx); Gastroesophageal reflux disease, unspecified whether esophagitis present; Diabetes mellitus without complication (HCC); BMI 60.0-69.9, adult (HCC); AQUILES (obstructive sleep apnea)Start: 75-35-7089Fikiqvysi for other preprocedural examinationPAMELA [facility] ClevelandStart: 12-28-2024 End: 53-63-7571Cxzktqtgaozvd examination doneSt. 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)Start: 12-12-2024 End: 52-17-2301Umspaqztx encounterChvonnie Mata DPM Work Phone: OrthopaedicsComment on above:Surgical FollowupStart: 12-12-2024 End: 82-28-1205Omnnxfa encounter procedureDajacob Reynoso RT(R)RadiologyComment on above:Pain in right foot (Primary Dx); Accessory navicular bone of right footStart: 12-12-2024 End: 87-81-3155bhextsumkzRumsar Coleman RT(R)RadiologyComment on above:Radiology XRStart: 12-12-2024 End: 29-19-9239Cpzoletzua hospital visit by physicianSaúl Andrews Work Phone: RadiologyComment on above:Pain [R52]Start: 12-05-2024 End: 31-61-2076Uvqyzp OnlyChristopher Henrry LEDESMAM Work Phone: Orth and Rheum InstituteComment on above:Pain (Primary Dx)Start: 11-26-2024 End: 88-01-4297gmmsdtxnjxLUMOG ELOhioHealth Dublin Methodist Hospitaltart: 10-24-2024 End: 52-33-8415Cgpewf follow up visit related to original Jamilah Avelar DPM Work Phone: [facility] [place] PODComment on above:Stress fracture of right foot, initial encounter (Primary Dx); Type 2 diabetes mellitus without complication, unspecified whether mcfp insulin use (CMS/HCC); Accessory navicular bone of right footStart: 10-24-2024 End: 96-14-6253hdfiujpnryHYIWDJLI A BROWNNot AvailableStart: 10-24-2024 End: 36-86-3345Yfykrk flowsheetNicholas A Brown DPM Work Phone: [facility] [place] PODStart: 10-24-2024 End: 55-21-9815Monnsd flowsheetNicholas A Brown DPM Work Phone: [facility] [place] PODStart: 10-04-2024 End: 44-76-3103Xtbykq follow up visit related to original pxNicholas A Brown DPM Work Phone: [facility] CI PODIATRYComment on above: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); Contracture of right ankle; Stress fracture of right foot, initial encounterStart: 10-04-2024 End: 41-21-2023wvyfnfrpneXRLMFXIA A BROWNNot AvailableStart: 10-04-2024 End: 50-67-5473Ricojn flowsheetNicholas A Brown DPM Work Phone: [facility] PODIATRYStart: 10-04-2024 End: 39-38-5864Ygvqel flowsheetNicholas A Brown DPM Work Phone: [facility] PODIATRYStart: 09-20-2024 End: 94-01-6645Rhzmoc follow up visit related to original pxNicholas A Brown DPM Work Phone: [facility] CI PODIATRYComment on above: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); Contracture of right ankleStart: 09-20-2024 End: 70-50-9265mxpepszzpoJVIKWRML A BROWNNot AvailableStart: 09-20-2024 End: 78-10-2991Qphbli flowsheetNicholas A Brown DPM Work Phone: [facility] CI PODIATRYStart: 09-20-2024 End: 34-42-7918Ssvpgm flowsheetNicholas A Brown DPM Work Phone: [facility] CI PODIATRYStart: 09-13-2024 End: 76-87-9403Xvjscb follow up visit related to original pxPato Avelar DPM Work Phone: [facility]oms CI PODIATRYComment on above: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); Contracture of right ankle; Type 2 diabetes mellitus without complication, unspecified whether adjunct faculty for medical terminology insulin use ([facility])Start: 09-13-2024 End: 17-76-8117ptyoqrfzakWPXOEZKQ A BROWNNot AvailableStart: 09-07-2024 End: 41-91-3420Lhjrcafst encounterNicantonio Avelar DPM Work Phone: [facility] CI PODIATRYStart: 09-05-2024 End: 67-00-0056Fil Drop offPato Avelar [facility] Start: 09-05-2024 End: 20-45-0030zupkbvpaeaBDM Pato AvelarFacility:FTMCStart: 08-30-2024 End: 69-80-5592Qyqavj outpatient visit 25 minutesPato Avelar DPM Work Phone: [facility] CI PODIATRYComment on above: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); Type 2 diabetes mellitus without complication, unspecified whether adjunct faculty for medical terminology insulin use ([facility]); Heel spur, left; Plantar fasciitis; Contracture of left ankle; Contracture of right ankleStart: 08-30-2024 End: 55-59-6408Aewbrp flowsheetPato Avelar DPM Work Phone: [facility] CI PODIATRYStart: 08-30-2024 End: 12-17-0417Xjohuq flowsheetNicantonio Johnson Brown DPM Work Phone: [facility] CI PODIATRYStart: 08-02-2024 End: 58-03-0263Nxqcjh outpatient visit 15 minutesPato Avelar DPM Work Phone: [facility] CI PODIATRYComment on above: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); Posterior tibial tendonitis of right leg; Type 2 diabetes mellitus without complication, unspecified whether mcfp insulin use ([facility])Start: 08-02-2024 End: 41-04-0140Qbneol kingstonNicantonio A Brown DPM Work Phone: [facility] CI PODIATRYStart: 08-02-2024 End: 38-45-7354Bibiwa flowsheetNicholas A Brown DPM Work Phone: [facility] CI PODIATRYStart: 07-24-2024 End: 78-03-1383Lajovt outpatient new 45 minutesPaul S Biedenbach DO Work Phone: [facility] NORWALKComment on above:Arthralgia of left temporomandibular joint (Primary Dx); Left ear pain; Chronic rhinitis; Fullness in ear, leftStart: 07-24-2024 End: 85-84-9228Xtqpst flowsheetPaul S Biedenbach DO Work Phone: [facility] ENT NORWALKStart: 07-24-2024 End: 65-56-6824Dvvpuo flowsheetPaul S Biedenbach DO Work Phone: [facility] NORWALKStart: 07-19-2024 End: 70-99-8407Fikarn outpatient visit 15 minutesNicantonio A Brown DPM Work Phone: [facility] [place] PODComment on above:Posterior tibial tendonitis of right leg (Primary Dx); Accessory navicular bone of left foot; Type 2 diabetes mellitus without complication, unspecified whether adjunct faculty for medical terminology insulin use ([facility]); Accessory navicular bone of right footStart: 07-19-2024 End: 92-07-9190Rcfsnv dannyheetNicholas A Brown DPM Work Phone: [facility] [place] PODStart: 07-19-2024 End: 16-78-4257Hafcxd flowsheetNicholas A Brown DPM Work Phone: [facility] [place] PODStart: 07-19-2024 End: 38-13-1260Xnbmtyqab encounterNicantonio Avelar DPMadi Work Phone: [facility] CI PODIATRYComment on above:Casting For Braces Or OrthoticsStart: 06-28-2024 End: 74-69-3210cvsnmwtmskKPTPJXAX A BROWNNot AvailableStart: 06-07-2024 End: 60-65-5713eknvsqyvieLHVSHRLV A BROWNNot AvailableStart: 05-24-2024 End: 55-60-2552asuryoyfnrBBMTHQCH A BROWNNot AvailableStart: 05-16-2024 End: 89-18-7359Tymfufdiy to same day surgery centerLORI Emmanuel Work Phone: [facility] CampusStart: 05-16-2024 End: 67-96-5249ekhfzidwzcQJ-Teresa Emmanuel Work Phone: [facility] Work Phone: Start: 05-03-2024 End: 31-86-7059gfpjgbeiqaKOLJKUQP A BROWNNot AvailableStart: 04-25-2024 ambulatoryNicholas Elizabeth AvelarFacility:FTMCStart: 04-25-2024 End: 08-87-4175qhamimzzpvQFF Pato AvelarFacility:FTMCStart: 04-25-2024 End: 80-84-5004Hifvfwm encounter procedureNicjorge luisas Elizabeth Avelar [facility] Start: 04-16-2024 End: 52-95-3669Jff-admission assessmentNicjorge luisas A Rodo [facility] Start: 04-12-2024 End: 83-10-8055stvrgvnjhnTWFTPWRU A BROWNNot AvailableStart: 03-29-2024 End: 39-66-8917hlmygkvwvrNJFVACXP A BROWNNot AvailableStart: 02-27-2024 End: 87-85-3497hgmoyjfgsjNH-C Monique Emmanuel Work Phone: [facility] Work Phone: Start: 02-27-2024 End: 40-80-8910Drloldk encounter procedureNP-C Monique Emmanuel Work Phone: [facility] Work Phone: Start: 84-12-8157puteifxvuaHIAAXF CRAMERFacility:H1 Start: 01-05-2023 End: 79-93-0757sangpjummzZDFXFZ CRAMERFacility:H1Pwvvt: 11-28-2022 End: 25-84-0371weajdkowlvEKPOIT CRAMERFacility:O3Zniqm: 11-15-2022 End: 23-72-1417phipktpkphRCPKYT CRAMERFacility:V3Urrso: 10-25-2022 End: 92-11-7475dotzgirdlaRIUDYA CRAMERFacility:T7Dqxfa: 08-25-2022 End: 05-15-4339oksrszvswhOQZYBW CRAMERFacility:Y6Heros: 44-77-5208Unvpqmvgl for general adult medical examination without abnormal findingsMONIQUE [facility]iano HospitalStart: 08-18-2022 End: 22-02-7533fdcnnvtaasTZYCGV CRAMERFacility:R7Cfgkw: 08-18-2022 End: 15-47-0665Ueqhbuykk for general adult medical examination without abnormal findingsPAMELA LIENFacility:A8Oqbam: 06-01-2022 End: 92-65-8580yotsyjsgquFW WESTLEY JHAFacility:M8Rciwd: 03-22-2022 End: 49-04-5571qoxlbxydyyYabdxp Dymond Other [employer] Other Start: 24-11-1579Jccckk outpatient visit 15 minutes Monique DudleyFPG [facility] Procedures DateProcedureProcedure DetailPerforming ClinicianStart: 57-66-5237Nhlok chest X-rayPabeverley Emmanuel MUD ANALYSIS OPERATOR-C Work Phone: Start: 98-62-9643Lbc any jt lower extrem w/o contrast matrlChristopher W Esperanza DPM Work Phone: Start: 14-43-0773Ihobxvveceaboh aspir&/inj interm jt/burs w/o usChristopher W Esperanza DPM Work Phone: Start: 04-06-1548Bntfr foot complete minimum 3 views Brianophchristelle Mata DPM Work Phone: Start: 49-18-7283Grdbv foot complete minimum 3 views Sean Sales Esperanza DPM Work Phone: Start: 90-67-3624Dqaan foot complete minimum 3 views Sean Sales Esperanza DPM Work Phone: Start: 78-87-3540YuiuwwzvaznHE-C Monique Lien Work Phone: Start: 62-27-4460C-ray of left footNP-C Monique Lien Work Phone: Start: 11-16-0022Jkqap X-ray of right shoulderNP-C Monique Emmanuel Work Phone: [facility]ectomyNicSt. [facility] Plan of Treatment DateCare ActivityDetailAuthorStart: 68-49-6887Zezjh microalbumin profile DTaP,Tdap,Td Vaccine (7 - Td or Tdap)[facility]: 09-06-2025 End: 64-63-3123Zixpqjb encounter yxhqivtwd05/10/2025 9:30 AM EDT Office Visit [facility] [address] [place] [address] Katrin Molina, DPM [address] [place] [address] [facility] PodiatryStart: 09-05-2025 End: 98-14-5258Rssyhih encounter higchehjo09/09/2025 10:40 AM EDT Office Visit [facility] [address] [place] [address] Pato Avelar DPM [address] [facility] [address] [place] [address] ArrivedNOMS CI PODIATRYComment on above:ArrivedStart: 65-49-0598Gsaudwfvf vaccinationMercer County Community Hospitaltart: 07-57-7743HveucntrgDayton Osteopathic Hospitaltart: 64-74-1098Abfdn disorder assessmentDayton Osteopathic Hospitaltart: 06-15-2025 End: 83-70-7384WgukgimsgDayton Osteopathic Hospitaltart: 03-07-4542Qmhszbaf to cardiologistDayton Osteopathic Hospitaltart: 47-47-0137Aygzxzwb admission [facility]: 06-11-2025 End: 14-51-7437Lofvjig encounter njaasguih52/15/2025 9:45 AM EDT Office Visit Orthopaedics [address] [place] [address] Sean Mata, [place] [address] [place] [address] F/U, 3 weeksOrthopaedicsComment on above:F/U, 3 weeks Start: 06-06-2025 End: 32-90-8318Emhvldw encounter lrmsgmuzc55/10/2025 8:00 AM EDT Appointment Radiology MRI [address] [place] [address] right ankle Radiology MRIComment on above:right ankleStart: 05-16-2025 End: 37-04-6365Xynbolf encounter procedureOrthopaedicsComment on above:right footF/U, 3 weeksStart: 03-21-2025 End: 34-66-5825Bjhpqru encounter xkjdepqwr85/24/2025 2:20 PM EDT Office Visit [facility] [address] [place] [address] Pato Avelar DPM [address] [address] Capsulitis of metatarsophalangeal (MTP) joint of right foot (Primary Dx); Type 2 diabetes mellitus without complication, unspecified whether mcfp insulin useNOMS CI PODIATRYComment on above:Capsulitis of metatarsophalangeal (MTP) joint of right foot (Primary Dx); Type 2 diabetes mellitus without complication, unspecified whether mcfp insulin useStart: 03-14-2025 End: 55-81-4763Qkfppry encounter alqhmmnsi13/17/2025 3:45 PM EDT Office Visit Orthopaedics [address] [place] [address] Sean Mata, SHITAL [address] [place] [address] Post op right foot, SX 12/31/24OrthopaedicsComment on above:Post op right foot, SX 12/31/24Start: 03-07-2025 End: 62-23-3867Yzulbqz encounter szdebpkko71/10/2025 9:00 AM EDT Office Visit [facility] [address] [place] [phone] Pato Avelar DPM [address] [address] ArrivedNOMS CI PODIATRYComment on above:ArrivedStart: 02-13-2025 End: 63-62-4052Xjiuiah encounter procedureOrthopaedicsComment on above:Post op right foot, SX 12/31/24Start: 01-23-2025 End: 82-78-3508Qouhwty encounter procedureOrthopaedicsComment on above:Post op right foot, SX 12/31/24Right FootStart: 01-09-2025 End: 00-48-2748Cmqhhjj encounter sxqwhzxee51/12/2025 10:15 AM EST Office Visit Orthopaedics [address] [place] [address] Sean Mata DPM [address] [place] [address] Post op right foot, SX 12/31/24OrthopaedicsComment on above:Post op right foot, SX 12/31/24Start: 12-31-2024 End: 69-84-7526Soddnkruf to same day surgery yrnjhn8012/31/2024 1:30 PM EST - 12/31/2024 3:30 PM EST Surgery Ambulatory Surgery [address] [place] [address] Sean Mata, SHITAL [address] [place], [place] [phone] (Work) RECONSTRUCTION POSTERIOR TIBIAL TENDON W/EXCISION OF ACCESSORY TARSAL NAVICULAR BONEAmbulatory SurgeryComment on above:RECONSTRUCTION POSTERIOR TIBIAL TENDON W/EXCISION OF ACCESSORY TARSAL NAVICULAR BONEStart: 12-31-2024 End: 74-91-4386Pxubvk pst tibl tdn w/exc accessory tarsl navclrRECONSTRUCTION POSTERIOR TIBIAL TENDON W/EXCISION OF ACCESSORY TARSAL NAVICULAR BONE Accessory navicular bone of right foot 12/31/2024 1:30 PM [facility]: 29-18-6994Bamrimctad hospital visit by ongkicziy49/03/2025 1:30 PM EST Hospital Encounter Ambulatory Surgery [address] [place] [address] Sean Mata DPM [address] [place] [address] 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]Ambulatory SurgeryComment on above: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]Start: 12-31-2024 End: 37-43-1395Nnffjlvmj to same day surgery zptzjl0012/31/2024 7:30 AM EST - 12/31/2024 9:25 AM EST Surgery Ambulatory Surgery [address] [place] [address] Sean Mata, DPM [address] [place], [place] [phone] (Work) RECONSTRUCTION POSTERIOR TIBIAL TENDON W/EXCISION OF ACCESSORY TARSAL NAVICULAR BONEAmbulatory SurgeryComment on above:RECONSTRUCTION POSTERIOR TIBIAL TENDON W/EXCISION OF ACCESSORY TARSAL NAVICULAR BONEStart: 12-31-2024 End: 33-30-7953Rigroaczsx kuhpxvogpjee63/03/2025 7:30 AM EST Anesthesia Event Ambulatory Surgery [address] [place], [place] [phone] [place] [address] [place] [address] Ambulatory SurgeryStart: 12-31-2024 End: 58-03-0495Yhqcfv pst tibl tdn w/exc accessory tarsl navclrRECONSTRUCTION POSTERIOR TIBIAL TENDON W/EXCISION OF ACCESSORY TARSAL NAVICULAR BONE Accessory navicular bone of right foot 12/31/2024 7:30 AM [facility]Start: 89-10-1531Jfacznctjt hospital visit by zqhqsdlpo34/03/2025 7:30 AM EST Hospital Encounter Ambulatory Surgery [address] [place] [address] Sean Mata, DPM [address] [place] [address] 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]Ambulatory SurgeryComment on above: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]Start: 12-28-2024 End: 11-31-9787Eisvpktjza uyhpthzdyodi65/31/2025 10:10 AM EST PAT Pre Anesthesia [address] [place] [address] PACC right foot, SX 12/31/24Pre AnesthesiaComment on above:PACC right foot, SX 12/31/24Start: 11-01-2024 End: 01-77-2171Yjpavdz encounter ucolddybz67/05/2024 4:20 PM EST Office Visit [facility] [address] [address] Pato Avelar DPM [address] [address] [facility] CI PODIATRYStart: 10-24-2024 End: 61-03-7321Xsvkzst encounter hwjrngjug94/27/2024 2:40 PM EST Office Visit [facility] [address] [place] [phone] Pato Avelar, DPM [address] [address] Stress fracture of right foot, initial encounter (Primary Dx); Type 2 diabetes mellitus without complication, unspecified whether adjunct faculty for medical terminology insulin use (CMS/HCC)[facility] SC PODComment on above:Stress fracture of right foot, initial encounter (Primary Dx); Type 2 diabetes mellitus without complication, unspecified whether mcfp insulin use (CMS/HCC)Start: 61-54-8012Twwxlogks B Vaccine (3 of 3 - 3-dose series)Hepatitis B Vaccine (3 of 3 - 3-dose series)[facility]: 10-04-2024 End: 13-26-6469Lrpxkzc encounter gzctosurf59/07/2024 2:40 PM EST Office Visit [facility] [address] [facility] [address] [place] [address] Pato Avelar DPM [address] [address] 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); Contracture of right ankleNOMS CI PODIATRYComment on above: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); Contracture of right ankleStart: 09-20-2024 End: 13-77-4420Ctbashf encounter jfjvegtfh29/24/2024 2:40 PM EDT Office Visit [facility] [address] [facility] [address] [place] [address] Paot Avelar DPM [address] [address] 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); Contracture of right ankleNOMS CI PODIATRYComment on above: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); Contracture of right ankleStart: 09-13-2024 End: 06-59-8411Bwmyzgp encounter rgycjpmwo85/17/2024 3:20 PM EDT Office Visit [facility] [address] [phone] Pato Avelar, DPM [address] [address] [facility] CI PODIATRYStart: 09-12-2024 End: 73-05-6711Rcokzlx encounter gasyjrvps86/16/2024 3:00 PM EDT Office Visit [facility] [address] [place] [address] Pato Avelar, DPM [address] [address] [facility] SC PODStart: 09-05-2024 End: 07-04-6812Vhdhgqh encounter ouvmxptvx97/09/2024 7:30 AM EDT Procedure Visit [facility]P Pato Avelar, DPM [address] [address] [facility] EXT DEPStart: 08-30-2024 End: 30-70-4204Wmsuxpg encounter bkxoyxape98/03/2024 2:50 PM EDT Office Visit [facility] [address] [facility] [address] [place] [phone] Pato Avelar, DPM [address] [address] 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); Type 2 diabetes mellitus without complication, unspecified whether mcfp insulin use ([facility] CI PODIATRYComment on above: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); Type 2 diabetes mellitus without complication, unspecified whether adjunct faculty for medical terminology insulin use ([facility])Start: 08-02-2024 End: 50-69-8298Weyyqjf encounter procedureNOMS CI PODIATRYComment on above: 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); Posterior tibial tendonitis of right leg; Type 2 diabetes mellitus without complication, unspecified whether mcfp insulin use ([facility])Start: 47-99-4942Bkomf-19 Vaccine ( season) Covid-19 Vaccine ()[facility]tart: 43-02-1022Tfwbdfame vaccinationInfluenza Vaccine (#1)[facility] HealthcareStart: 07-24-2024 End: 77-08-2022Tkynoqs encounter procedureNOMS ENT NORWALKComment on above: ArrivedStart: 07-19-2024 End: 11-82-0221Wvmydsq encounter kwrsuibmx48/22/2024 4:00 PM EDT Office Visit [facility] [address] [place] [address] Pato Avelar DPM [address] [address] Accessory navicular bone of left foot (Primary Dx); Type 2 diabetes mellitus without complication, unspecified whether adjunct faculty for medical terminology insulin use ([facility] SC PODComment on above:Accessory navicular bone of left foot (Primary Dx); Type 2 diabetes mellitus without complication, unspecified whether adjunct faculty for medical terminology insulin use ([facility])Start: 93-34-0052VwijcwfpzDayton Osteopathic Hospitaltart: 71-62-5675NovhttmzuDayton Osteopathic Hospitaltart: 94-25-8467Lhmgughjh for malignant neoplasm of cervixNOMS HealthcareStart: 17-76-5606Mjwdckaxs for malignant neoplasm of cervixNOMS HealthcareStart: 67-13-0752Ghfcgfrzmmtr vaccinationPneumococcal Vaccine (1 of 2 - PCV)[facility]art: 2007 Urine screening for proteinDiabetes: Urine Protein ScreeningRanken Jordan Pediatric Specialty Hospital Start: 73-91-3627Qkpcry PCP Team Chronic Disease VisitAnnual PCP Team Chronic Disease VisitMercer County Community Hospitaltart: 49-87-9332Tckkrir ScreeningAnxiety Screening [facility]: 01-90-7490Uirzqmacqd ScreeningDepression Screening [facility]tart: 26-30-6307Byemstwah B surface antibody levelLDL CholesterolMercer County Community Hospitaltart: 06-26-9944Pnmvolrtw C screeningHepatitis C ScreeningMercer County Community Hospitaltart: 12-55-6130GJI screeningHIV ScreeningMercer County Community Hospitaltart: 74-69-9851Mfney microalbumin profileDTaP,Tdap,Td Vaccine (6 - Tdap) [facility]tart: 62-62-5573Dbkgzsgw foot examinationDiabetic Foot Exam [facility]tart: 44-45-8138Brvkpibl screeningRanken Jordan Pediatric Specialty HospitalStart: 68-89-7678Boxjvepow B screeningUrine Albumin:Creatinine RatioAultman Alliance Community Hospital Start: 60-86-3104Gsykbozrih A1c yegoqfhewcdTkU9TUhulfpgck ClinicStart: 88-27-2163Jiicjnxtcb A1c measurementDiabetes: Hemoglobin B0MQGCNRanken Jordan Pediatric Specialty HospitalAnion gap measurementUc Medical CenterApplication short leg cast walking/ambulatoryCAST DAVID LEG, SHORT(WALKING) Procedures Routine Sinus tarsitis, right Ordered: 04/25/2025[facility] Work Phone: comment on above:Ordered: 04/25/2025asophils [#/volume] in Blood by Automated [facility] Basophils/100 leukocytes in Blood by Automated [facility] PrebleCalculated LDL cholesterol levelUc Medical Center Cholesterol.total/Cholesterol in HDL [Mass Ratio] in Serum or PlasmaUc Medical CenterEosinophils/100 leukocytes in Blood by Automated count Uc Medical CenterErythrocyte distribution width [Ratio] by Automated [facility]bleErythrocytes [#/volume] in Blood Uc Medical CenterGlucose [Mass/volume] in Serum or Plasma Uc Medical CenterGlucose measurement estimated from glycated hemoglobinUc Medical CenterHematocrit [Volume Fraction] of Blood Uc Medical CenterHemoglobin [Mass/volume] in BloodUc Medical CenterHemoglobin A1c/Hemoglobin.total in BloodUc Medical CenterLeukocytes [#/volume] corrected for nucleated erythrocytes in Blood by Automated counUc Medical Center Leukocytes [#/volume] in BloodUc Medical CenterLymphocytes [#/volume] in Blood by Automated [facility] Lymphocytes/100 leukocytes in Blood by Automated [facility] PrebleMCH [Entitic mass] by Automated [facility] MCHC [Mass/volume] by Automated [facility] PrebleMCV [Entitic volume] by Automated [facility]bleMonocytes [#/volume] in Blood by Automated [facility] Monocytes/100 leukocytes in Blood by Automated [facility] End: 45-07-5224QZ Ankle - right WO contrastMRI ANKLE WO IVCON RIGHT Radiology Routine Chronic pain of right ankle 1 Occurrences starting 05/16/2025 until 06/15/2026[facility] Work Phone: comment on above:1 Occurrences starting 05/16/2025 until 06/15/2026MR Foot - right WO contrastMR foot right wo IV contrast Imaging Routine Stress fracture of right foot, initial encounter Ordered: 10/04/2024[facility] [employer] Work Phone: Comment on above:Ordered: 10/04/2024Neutrophils [#/volume] in Blood by Automated [facility] Neutrophils/100 leukocytes in Blood by Automated [facility] PrebleNucleated erythrocytes [Presence] in Blood by Automated [facility] PreblePatient EducationKnow your MedsSelect Medical [facility] Work Phone: Patient referralSelect Medical [facility] Work Phone: Platelet mean volume [Entitic volume] in Blood by Automated [facility] PreblePlatelets [#/volume] in Blood Uc Medical CenterVLDL cholesterol measurementUc Medical CenterXR Foot - right 3 ViewsXR foot 3+ views right Imaging Routine Accessory navicular bone of right foot 09/13/2024 3:04 PM EDTAMERICAN FORK HOSPITAL [employer] Work Phone: XR Foot - right 3 ViewsXR foot 3+ views right Imaging Routine Accessory navicular bone of right foot 08/02/2024 3:28 PM [facility] Work Phone: End: 88-47-1928UN Foot - right AP and Lateral and obliqueXR FOOT GENERAL 3V AP/LAT/OBL RIGHT Radiology Routine S/P foot surgery, right 1 Occurrences starting 01/03/[address] [place] [address] Work Phone: Comment on above:1 Occurrences starting 01/03/2025 until 02/02/2026 End: 71-44-0559QI Foot - right AP and Lateral and obliqueXR FOOT GENERAL 3V AP/LAT/OBL RIGHT Radiology Routine S/P foot surgery, right 1 Occurrences starting 01/16/[address] [place] [address] Work Phone: Comment on above:1 Occurrences starting 01/16/2025 until 02/10/2026 End: 31-48-7792TH Foot - right AP and Lateral and obliqueXR FOOT GENERAL 3V AP/LAT/OBL RIGHT Radiology Routine S/P foot surgery, right 1 Occurrences starting 03/14/[address] [place] [address] Work Phone: comment on above:1 Occurrences starting 03/14/2025 until 04/07/2026 Immunizations Immunization DateImmunizationNotesCare JvighnrwPstljchs02-72-6659uchpknvgd B vaccine, pediatric or pediatric/adolescent dosagePa [facility] DO Work Phone: [facility] HospitalWpxxkkjvwa71-48-8504eyazvzs, mumps and rubella virus vaccineDelano CreateTripsyak[facility] DO Work Phone: [facility] HospitalWvcjweyyof72-86-4420ekribwcunt, tetanus toxoids and pertussis vaccineDelano [facility] DO Work Phone: [facility] HospitalTqnjgmzjwh80-06-0246nfwmnmmbr poliovirus vaccine, live, oralPa [facility] DO Work Phone: [facility] HospitalOqlqxxnqsq00-70-1483qckjejqecru influenzae type b vaccine, conjugate unspecified formulationPa POINT [address] Basketballformerly [facility], [facility] DO Work Phone: [facility] HospitalApotdkdsrn54-56-9419provnpobse, tetanus toxoids and pertussis vaccinePaul Biedenbach DO Work Phone: [facility] HospitalXgtwodrefp29-13-0512bitlpcv, mumps and rubella virus vaccinePaul Biedenbach DO Work Phone: [facility]ty HospitalEckietoabo98-18-9327oivutbxbe poliovirus vaccine, live, oralPaul Biedenbach DO Work Phone: [phone] [place], [place] [address]Ahffgsildv36-46-1706qsixjrjnxe, tetanus toxoids and pertussis vaccinePaul Biedenbach DO Work Phone: [phone] [place], [place] [address]Pwqnejqwsm34-78-8600bopsdpesjz, tetanus toxoids and pertussis vaccinePaul Biedenbach DO Work Phone: [phone] [place], [place] [address]Kwcgofokgc55-07-2682tlbprgakc poliovirus vaccine, live, oralPaul Biedenbach DO Work Phone: [phone] [place], [place] [address]Mdukvimcar33-49-2327qcrnqbohhp, tetanus toxoids and pertussis vaccinePaul Biedenbach DO Work Phone: [phone] [place], [place] [address]Weepgepogh80-02-0261eexhnydhc poliovirus vaccine, live, oralPaul Biedenbach DO Work Phone: [phone] [place] [address] Payers DatePayer CategoryNyyerEncompass Healthy [id number]-tyb [id number] Cross Blue Shield1.2.840.752018.1.13.693.2.7.9.991846.978128.29133-45-3780 Unknown1.2.840.423758.1.13.693.2.7.3.918[id number] 2.16.840.1.839403.3.579.2.61408-76-8253Dfopntl1607215 2.16.840.1.547801.3.579.2.16183-03-2404Zgabijf5317954 2.16.840.1.935625.3.579.2.02142-50-4466Oejdhyg9287858 2.16.840.1.359868.3.579.2.90145-41-9661Mcocbca2321741 2.16.840.1.556151.3.579.2.70570-70-1996Jlsmkzg0205869 2.16.840.1.664143.3.579.2.32823-72-1604Uxyewlm8322212 2.840.1.734771.3.579.2.20697-71-5739Sjpdeco2510639 2.840.1.135640.3.579.2.83557-09-8924Taqbriw43162997 2.0.1.862694.3.579.2.66090-67-7207Yoabgge7059841 2.840.1.775779.3.579.2.569699-05-5384Hkhwpxo5314363 2.0.1.169092.3.579.2.535046-92-2623Uhizpdc7526132 2.840.1.710906.3.579.2.252306-26-1140Ydrusfs6620540 2.840.1.234160.3.579.2.375790-53-2443Efubtbk9902930 2.840.1.053198.3.579.2.227586-15-1459Jreujll9072357 2.840.1.316423.3.579.2.729577-85-7900Ojrqnju68872105 2.840.1.854287.3.579.2.44373-65-1597Xdfmgri99879676 2.840.1.393057.3.579.2.381317-22-0870Xeqlngf7014452 2.16.840.1.528497.3.579.2.573355-88-9695Fflntpz8717419 2.16.840.1.061405.3.579.2.531382-10-0599Rpdmedm4050983 2.16.840.1.215746.3.579.2.717101-35-1667Fawxqbz2062068 2.16.840.1.008001.3.579.2.805998-58-6186Onqvxsf2850134 2.16.840.1.158418.3.579.2.065243-65-8059Jockyps1186530 2..840.1.692184.3.579.2.263040-20-0601Gsmxtcr7777637 2.840.1.157293.3.579.2.578682-36-6507DoksFort Defiance Indian [id number] 2..840.1.116755.97Mzbfsyd37627187 2.840.1.658962.3.579.2.531 Social History DateTypeDetailFacilityUnknown if ever smokedNort Feedlooks Other Start: 08-02-2024 End: 21-38-1144Pih Assigned At [facility] Hospitaltart: 10-25-2018 End: 08-29-8831Tzskosd smoking status NHISNever smoked tobacco (finding) [facility] CenterStart: 33-14-4405Caf Assigned At [facility] Medical CenterTobacco smoking statusNo Smoking Status Entered [facility]ictart: 03-29-2024 End: 21-96-6924Hcnfszh use and exposureSmokeless tobacco non-userNOMS Healthcare Start: 08-02-2024 End: 65-53-9875Rtpvrztub beverage intakeLifetime non-drinker (finding)[facility] HealthcareStart: 08-02-2024 End: 65-74-8248Kocnkxz of Social functionFort Necessity ClinicStart: 95-70-3563Nhg assigned at birthNot on fileNOIN HealthcareTobacc smoking status NHISTobacco smoking consumption unknownAultman Alliance Community HospitalAdthree crosses regional hospital [[email or web address]] Depression Screening Assessment 2Clevelatrium health ClinicStart: 37-09-3049IzeVkrdzb (finding)Uc Medical CenterNEGATED: Highlighted rowStart: NINFHistory of tobacco usePassive smoker [facility] Medical Equipment Procedure CodeEquipment CodeEquipment Original TextEquipment IdentifierDates Wound debridementTendon/ligament bone anchor, non-bioabsorbable [id number] FDAStart: 82-35-1142Trzkrq Suturetak Fiberwire 1 .5 Ramona 2 Joselin Biocomposite 26.2mm Suture - [id number]: 20-36-9999Qrwln Sugar Diagnostic (Onetouch Ultra Test) strip Start: 48-86-1944Gnytz Sugar Diagnostic (Onetouch Ultra Test) stripStart: 87-38-5733Hwnwe Sugar Diagnostic (Onetouch Ultra Test) stripStart: 02-05-2025 Blood Sugar Diagnostic (Onetouch Ultra Test) stripStart: 02-05-2025 Goals DatePatient GoalDesired Activity/State Functional Status CmuvCensqodftwAqjlczUgtusxwr61-18-9288Blfnosvomv StatusOhioHealth [facility] Clinical Notes 03-22-2022 to 09-03-2025 Note Date & PsfxNowqUzaeweeh85-18-5667 NoteHNO ID: [id number] Author: SEAN MATA DPM Service: ? Author Type: Physician Type: Progress Notes Filed: 09/03/2025 08:56 Note Text: PRIMARY SERVICE: [facility] Podiatry SUBJECTIVE: Patient is seen today with [...] tablet by mouth once daily. 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 DEXCOM G7 SENSOR eduin [...] of SERVICE: 09/03/2025 TIME of SERVICE: 8:52 [facility]07-19-2025 Evaluation note* Diagnosis Onset Date Resolution Status Admit Date Chest pain acuteJuly 2024 1:59amDiabetes mellitusacuteJuly 2024 1:59am [facility] Work Phone: 1(387) 408-953307-19-2025 Evaluation note* Diagnosis Onset Date Resolution Status Admit Date Diabetes mellitus acuteJuly 2024 1:59amChest painresolvedJuly 2024 1:59am [facility] Work Phone: 1(174) 805-909907-15-2025 NoteHNO ID: [id number] Author: SEAN MATA DPM Service: ? Author Type: Physician Type: Progress Notes Filed: 06/11/2025 10:13 Note Text: PRIMARY SERVICE: [facility] Podiatry 9:48 AM through 10:18 AM [...] tablet by mouth once daily. 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 DEXCOM G7 SENSOR eduin [...] the deltoid and spring ligaments as described. Industrial Paramedic: PSCB Transcribe Date/Time: Jun 06 2025 11:37A Dictated by : RADHA TYSON MD This examination was interpreted and the report reviewed and electronically signed by: KATIANA FLORES MD on Jun 06 2025 2:13PM EST Results-Findings * * *Final Report* * * DATE OF EXAM: Jun 06 2025 8:43AM [facility] 0164 - MRI ANKLE WO IVCON RT [...] tibiofibular ligament: I (more content not included)... [facility]07-15-2025 History of Present illness Narrative* Sean Mata DPM - 06/11/2025 10:08 AM EDT Images from the original note were not included. PRIMARY SERVICE: [facility] Podiatry 9:48 AM through 10:18 AM [...] tablet by mouth once daily. 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 DEXCOM G7 SENSOR eduin [...] the deltoid and spring ligaments as described. Industrial Paramedic: PSCB Transcribe Date/Time: Jun 06 2025 11:37A Dictated by : RADHA TYSON MD This examination was interpreted and the report reviewed and electronically signed by: KATIANA FLORES MD on Jun 06 2025 2:13PM EST Results-Findings * * *Final Report* * * DATE OF EXAM: Jun 06 2025 8:43AM [facility] 0164 - MRI ANKLE WO IVCON RT [...] History MRI ANKLE WO IVCON RIGHT (Order #[id number]) on 06/06/2025 - Order Result History Report [...] of SERVICE: 10:08 AM documented in this encounterAultman Alliance Community Hospital07-10-2025 History of Present illness Narrative* Mary [...] PATIENT PRESENTS WITH AN IMPLANTABLE OR ATTACHED GRID CASTER: Yes [facility] RADIOLOGY DEPARTMENT: MR; Exam(s) Completed: Lower MSK: Ankle/Hind Foot, right . Aromatherapy Administered: No PERIPHERAL IV DATA: Not applicable SIGNED BY: MARIBELL Lomax) June 06, 2025 8:17 AM documented in this encounterAultman Alliance Community Hospital07-10-2025 NoteHNO ID: [id number] Author: MARY ALVAREZ RT(R) Service: ? Author [...] PATIENT PRESENTS WITH AN IMPLANTABLE OR ATTACHED GRID CASTER: Yes [facility] RADIOLOGY DEPARTMENT: MR; Exam(s) Completed: Lower MSK: Ankle/Hind Foot, right . Aromatherapy Administered: No PERIPHERAL IV DATA: Not applicable SIGNED BY: RT Dami(R) June 06, 2025 8:17 [facility]06-20-2025 Telephone encounter Note* Telephone Encounter - Natalia Barrios CT - 05/17/2025 12:00 PM EDT Patients boot in no longer inflating or button is broken. Her mother will be coming in this way next week. She will bring the boot to change it out. Patient lives in [place]. [facility]06-20-2025 Miscellaneous Notes* Telephone Encounter - Natalia Barrios CT - 05/17/2025 12:00 PM EDT Patients boot in no longer inflating or button is broken. Her mother will be coming in this way next week. She will bring the boot to change it out. [place]. documented in this encounterAultman Alliance Community Hospital06-19-2025 NoteHNO ID: [id number] Author: BEVERLY DOBSON Cast Tech Service: ? Author Type: Remelter Type: Progress Notes Filed: 05/16/2025 15:24 Note Text: Patient in today for scheduled appointment. Cast removed. Right leg cleansed with Wound wash, sea-clens and debrisoft. Examined by Dr. Mata. Patient to go int a boot she has at home. Beverly Dobson [facility]06-19-2025 History of Present illness Narrative* Beverly Dobson Cast Kerri - 05/16/2025 3:23 PM EDT Patient in today for scheduled appointment. Cast removed. Right leg cleansed with Wound wash, sea-clens and debrisoft. Examined by Dr. Mata. Patient to go int a boot she has at home. Beverly Dobson, CT documented in this encounterAultman Alliance Community Hospital06-19-2025 NoteHNO ID: [id number] Author: SEAN MATA DPM Service: ? Author Type: Physician Type: Progress Notes Filed: 05/16/2025 14:44 Note Text: Medical intake sheet from May 16, 2025 , was updated by patient, reviewed, and was made part of the patient's chart. Sean Mata DPM PRIMARY SERVICE: [facility] Podiatry SUBJECTIVE: Patient is seen today [...] tablet by mouth once daily. 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 DEXCOM G7 SENSOR eduin [...] and further discuss treatment options SIGNATURE: [facility] History of Present illness Narrative* Sean Mata DPM - 05/16/2025 2:41 PM EDT Medical intake sheet from May 16, 2025 , was updated by patient, reviewed, and was made part of the patient's chart. Sean Mata DPM PRIMARY SERVICE: [facility] Pod[facility] SUBJECTIVE: Patient is seen today [...] tablet by mouth once daily. 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 DEXCOM G7 SENSOR eduin [...] SIGNATURE: Sean Mata DPM documented in this encounterAultman Alliance Community Hospital06-09-2025 NoteHNO ID: [id number] Author: BEVERLY DOBSON Cast Tech Service: ? Author Type: Remelter Type: Progress Notes Filed: 05/06/2025 16:02 Note [...] doctor during next scheduled appointment/prn. Beverly Dobson [facility]06-09-2025 History of Present illness Narrative* Beverly [...] appointment/prn. Beverly Dobson, CT documented in this encounterAultman Alliance [facility]06-06-2025 Telephone encounter Note * Telephone Encounter - Staci Powers - 05/03/2025 2:59 PM EDT Patient called the office to schedule a cast change as suggested by Lashon. No order placed, unfortunately due to the time restraints we had to schedule for Tuesday. [facility]06-06-2025 Miscellaneous Notes* Telephone Encounter - Staci Powers - 05/03/2025 2:59 PM EDT Patient called the office to schedule a cast change as suggested by Lashon. No order placed, unfortunately due to the time restraints we had to schedule for Tuesday. documented in this encounterAultman Alliance Community Hospital05-29-2025 NoteHNO ID: [id number] Author: BEVERLY DOBSON Cast Tech Service: ? Author Type: Remelter Type: Progress Notes Filed: 04/25/2025 15:14 Note Text: Applied A Short Leg Weightbearing Cast to the right leg. Instructions on cast care given. A medium Cast Shoe was dispensed. Will f/u as scheduled/prn. [facility]05-29-20[facility] History of Present illness Narrative* Beverly Dobson Cast Tech - 04/25/2025 3:13 PM EDT Applied A Short Leg Weightbearing Cast to the right leg. Instructions on cast care given. A medium Cast Shoe was dispensed. Will f/u as scheduled/prn. HAYES Johnson documented in this encounterAultman Alliance Community Hospital05-29-2025 NoteHNO ID: [id number] Author: SEAN MATA DPM Service: ? Author Type: Physician Type: Progress Notes Filed: 04/25/2025 14:38 Note Text: PRIMARY SERVICE: [facility] Pod[facility] SUBJECTIVE: Patient is seen today [...] by mouth once daily. 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 - DEXCOM G7 SENSOR [...] these instructions. Informed Consent Consent Obtained: Verbal Mather Protocol A moment to CARE was completed. [...] of SERVICE: 04/25/2025 TIME of SERVICE: 2:09 [facility]05-29-2025 History of Present illness Narrative* Sean Mata DPM - 04/25/2025 2:09 PM EDT Associated Order(s): Additional Injections: R subtalar joint Post-Procedure Diagnose(s): Sinus tarsitis, right Images from the original note were not included. PRIMARY SERVICE: [facility] Pod[facility] SUBJECTIVE: Patient is seen today [...] tablet by mouth once daily. 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 DEXCOM G7 SENSOR eduin [...] these instructions. Informed Consent Consent Obtained: Verbal Mather Protocol A moment to CARE was completed. [...] of SERVICE: 2:09 PM documented in this encounterAultman Alliance Community Hospital05-20-2025 NoteHNO ID: [id number] Author: SEAN MATA DPM Service: ? Author Type: Physician Type: Progress Notes Filed: 04/16/2025 14:48 Note Text: PRIMARY SERVICE: [facility] Virtual visit with Zoom: 2:15 [...] tablet by mouth once daily. 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 DEXCOM G7 SENSOR eduin [...] week for evaluation. Explained I really cannot blog writer what is going on without examining her clinically to determine the best plan of care. Continue icing and oral ibuprofen in the meantime along with the return to her Aircast cam walker boot. SIGNATURE: Sean Mata DPM DATE of SERVICE: 04/16/2025 TIME of SERVICE: 2:42 [facility]04-24-2025 History of Present illness Narrative* Pato Avelar, SHITAL - 03/21/2025 2:20 PM EDT Patient: Noel Abadphilip : 1990 PCP: Erich Garcia MD SUBJECTIVE This is a 34 y.o. female that presents today s/p right revisional modified Kidner right foot by Dr Mata at [facility]. Pt denies n/f/v/c and has negative [...] History: Past Medical History: Diagnosis Date Diabetes ([facility]) Ear problems GERD [...] 2 diabetes mellitus without complication, unspecified whether mcfp insulin use PLAN Continue with physical therapy Patient to return to orthotics Patient to continue with oral anti - inflammatories as needed for pain and recommended OTC medications such as tylenol or Ibuprofen Pato Avelar DPM documented in this encounterRanken Jordan Pediatric Specialty HospitalGycjydaikz60-17-4718 NoteHNO ID: [id number] Author: NATALIA BARRIOS CT Service: ? Author Type: Clinical Remelter Type: Progress Notes Filed: 03/14/2025 16:37 Note Text: Dispensed size Medium ASO to right foot.[facility]04-17-2025 History of Present illness Narrative* Natalia Barrios CT - 03/14/2025 4:37 PM EDT Dispensed size Medium ASO to right foot. * Sean Mata DPM - 03/14/2025 3:41 PM EDT PRIMARY SERVICE: [facility] Pod[facility] SUBJECTIVE: Patient is seen today [...] needed for up to 10days. 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 DEXCOM G7 SENSOR eduin [...] SIGNATURE: Sean Mata DPM documented in this encounterAultman Alliance Community Hospital04-17-2025 NoteHNO ID: [id number] Author: SEAN MATA DPM Service: ? Author Type: Physician Type: Progress Notes Filed: 03/14/2025 16:01 Note Text: PRIMARY SERVICE: [facility] Pod[facility] SUBJECTIVE: Patient is seen today [...] for up to 10 days. 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 DEXCOM G7 SENSOR eduin [...] ASO ankle brace today SIGNATURE: Sean Mata [facility]04-17-2025 Note HNO ID: [id number] Author: JOYA DUBOIS RT(Misha) Service: ? Author [...] PATIENT PRESENTS WITH AN IMPLANTABLE OR ATTACHED GRID CASTER: No RADIOLOGY DEPARTMENT: General X-ray: Exam(s) Completed: Lower Extremity X-Ray(s): Foot, Right and Wt. Bearing PERIPHERAL IV DATA: Not applicable SIGNED BY: RT Ezequiel(Misha) March 14, 2025 3:32 [facility]04-17-2025 History of Present illness Narrative* Joya [...] PATIENT PRESENTS WITH AN IMPLANTABLE OR ATTACHED GRID CASTER: No RADIOLOGY DEPARTMENT: General X-ray: Exam(s) Completed: Lower Extremity X- Ray(s): Foot, Right and Wt. Bearing PERIPHERAL IV DATA: Not applicable SIGNED BY: RT Ezequiel(Misha) March 14, 2025 3:32 PM documented in this encounterAultman Alliance Community Hospital04-10-2025 History of Present illness Narrative* Pato Avelar DPM - 03/07/2025 9:00 AM EDT Patient: Noel Paul : 1990 PCP: Erich Garcia MD SUBJECTIVE This is a 34 y.o. female that presents today s/p right revisional modified Kidner right foot by Dr Mata at [facility]. Pt denies n/f/v/c and has negative [...] pack Pato Avelar DPM documented in this encounterRanken Jordan Pediatric Specialty HospitalCeiznelhds45-12-6311 Telephone encounter Note* Telephone Encounter - Chris Bhatt OCCA - 02/20/2025 4:21 PM EDT Called and informed staff she may being partial weight bearing. [facility]03-26-2025 Miscellaneous Notes* Telephone Encounter - Chris Bhatt OCCA - 02/20/2025 4:21 PM EDT Called and informed staff she may being partial weight bearing. * Telephone Encounter - Marva Bhardwaj - 02/20/2025 4:06 PM EDT Bonilla from [facility] PT Dept is calling Sean Mata DPM today to request weightbearing guide lines for patient PT CB [phone] ext [phone] FAX [phone] Patient has been identified by name and birthdate. Duration of symptoms: N/A Person calling: caregiver: Call patient at: [phone] (home) [phone] (cell) Was an appointment scheduled: No Closing statement: Results or non-symptom based questions: Thank you for calling [facility], your call will be returned within the next business day. Marva Almeida documented in this encounterAultman Alliance Community Hospital03-26-2025 Telephone encounter Note * Telephone Encounter - Marva Bhardwaj - 02/20/2025 4:06 PM EDT Bonilla from [facility] PT Dept is calling Sean Maat DPM today to request weightbearing guide lines for patient PT CB [phone] ext [phone] FAX [phone] Patient has been identified by name and birthdate. Duration of symptoms: N/A Person calling: caregiver: Call patient at: [phone] (home) [phone] (cell) Was an appointment scheduled: No Closing statement: Results or non-symptom based questions: Thank you for calling [facility], your call will be returned within the next business day. Marva Almeida [facility]03-19-2025 NoteHNO ID: [id number] Author: BEVERLY DOBSON Cast Tech Service: ? Author Type: Remelter Type: Progress Notes Filed: 02/13/2025 10:15 Note Text: Patient in today for scheduled appointment. Cast removed. Right leg cleansed with Cavilon. Examined by Dr. Mata. Fitted with a medium Short Pneumatic Walker for the right leg. Instructions on application, adjustments and care given. Will f/u as scheduled/prn. Beverly Dobson [facility]03-19-2025 History of Present illness Narrative* Beverly Dobson Cast Tech - 02/13/2025 10:14 AM EDT Patient in today for scheduled appointment. Cast removed. Right leg cleansed with Cavilon. Examinedby Dr. Mata. Fitted with a medium Short Pneumatic Walker for the right leg. Instructions on application, adjustments and care given. Will f/u as scheduled/prn. HAYES Johnson documented in this encounterAultman Alliance Community Hospital03-19-2025 NoteHNO ID: [id number] Author: SEAN MATA DPM Service: ? Author Type: Physician Type: Progress Notes Filed: 02/13/2025 10:05 Note Text: PRIMARY SERVICE: [facility] Pod[facility] SUBJECTIVE: Patient is seen today [...] up to 10 days. 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 - DEXCOM G7 SENSOR [...] was made part of the patient's chart. [facility]Bar[facility]03-19-2025 History of Present illness Narrative* Sean Mata DPM - 02/13/2025 9:44 AM EDT PRIMARY SERVICE: [facility] Pod[facility] SUBJECTIVE: Patient is seen today [...] needed for up to 10days. 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 DEXCOM G7 SENSOR eduin [...] chart. Sean Mata DPM documented in this encounterAultman Alliance Community Hospital03-19-2025 NoteHNO ID: [id number] Author: MAURA SHELL RT(Misha) Service: ? Author [...] PATIENT PRESENTS WITH AN IMPLANTABLE OR ATTACHED GRID CASTER: No RADIOLOGY DEPARTMENT: General X-ray: Exam(s) Completed: Lower Extremity X-Ray(s): Foot, Right PERIPHERAL IV DATA: Not applicable SIGNED BY: RT Rickie(Misha) February 13, 2025 9:23 [facility]03-19-2025 History of Present illness Narrative* Maura Shell [...] PATIENT PRESENTS WITH AN IMPLANTABLE OR ATTACHED GRID CASTER: No RADIOLOGY DEPARTMENT: General X-ray: Exam(s) Completed: Lower Extremity X- Ray(s): Foot, Right PERIPHERAL IV DATA: Not applicable SIGNED BY: RT Rickie(R) February 13, 2025 9:23 AM documented in this encounterAultman Alliance Community Hospital02-26-2025 Note* Addendum Note - Natalia Barrios CT - 01/23/2025 12:18 PM ESTAddended by: NATALIA BARRIOS on: 01/23/2025 12:18 PM Modules accepted: Orders [facility]02-26-2025 Miscellaneous Notes* Addendum Note - Natalia Barrios CT - 01/23/2025 12:18 PM ESTAddended by: NATALIA BARRIOS on: 01/23/2025 12:18 PM Modules accepted: Orders documented in this encounterAultman Alliance Community Hospital02-26-2025 NoteHNO ID: [id number] Author: BEVERLY DOBSON Cast Tech Service: ? Author Type: Remelter Type: Progress Notes Filed: 01/23/2025 11:52 Note Text: Patient in today for scheduled appointment. Cast removed. Right leg cleansed with sea-clens. Examined by Dr. Mata. Applied A Short Leg Nonweightbearing Cast to the right leg. Instructions on cast care given. Will f/u as scheduled/prn. Beverly Dobson [facility]02-26-2025 History of Present illness Narrative* Beverly Dobson Cast Tech - 01/23/2025 11:51 AM EST Patient in today for scheduled appointment. Cast removed. Right leg cleansed with sea-clens. Examined by Dr. Mata. Applied A Short Leg Nonweightbearing Cast to the right leg. Instructions on cast care given. Will f/u as scheduled/prn. HAYES Johnson documented in this encounterAultman Alliance Community Hospital02-26-2025 NoteHNO ID: [id number] Author: SEAN MATA DPM Service: ? Author Type: Physician Type: Progress Notes Filed: 01/23/2025 11:47 Note Text: PRIMARY SERVICE: [facility] Pod[facility] SUBJECTIVE: Patient is seen today [...] for up to 10 days. 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 DEXCOM G7 SENSOR eduin [...] and refer to physical therapy. SIGNATURE: CALLIE WardTri[facility]02-26-20[facility] History of Present illness Narrative* Sean Mata DPM - 01/23/2025 10:56 AM EST PRIMARY SERVICE: [facility] Pod[facility] SUBJECTIVE: Patient is seen today [...] needed for up to 10days. 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 DEXCOM G7 SENSOR eduin [...] SIGNATURE: Sean Mata DPM documented in this encounterAultman Alliance Community Hospital02-12-2025 NoteHNO ID: [id number] Author: SHAYLEE CONCEPCION MA Service: ? Author Type: Box Closing Machine Operator Type: Progress Notes Filed: 01/09/2025 [...] will follow up as scheduled or as needed.[facility]02-12-2025 History of Present illness Narrative* Shaylee [...] scheduled or as needed. documented in this encounterAultman Alliance Community Hospital02-12-2025 NoteHNO ID: [id number] Author: SEAN MATA DPM Service: ? Author Type: Physician Type: Progress Notes Filed: 01/09/2025 10:55 Note Text: PRIMARY SERVICE: [facility] Pod[facility] SUBJECTIVE: Patient is seen today [...] for up to 10 days. 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 DEXCOM G7 SENSOR eduin [...] of SERVICE: 01/09/2025 TIME of SERVICE: 10:52 [facility]02-12-2025 History of Present illness Narrative* Sean Mata, DPM - 01/09/2025 10:52 AM EST Images from the original note were not included. PRIMARY SERVICE: [facility] Pod[facility] SUBJECTIVE: Patient is seen today [...] needed for up to 10days. 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 DEXCOM G7 SENSOR eduin [...] of SERVICE: 10:52 AM documented in this encounterAultman Alliance Community Hospital02-05-2025 Telephone encounter Note * Telephone Encounter - Sean Mata DPM - 01/02/2025 12:36 PM EST Called patient at [phone] to return call regarding pain management. I spoke with the patient. Advised I sent a prescription over for her electronically for Toradol 10 mg tablets take 2 right away the 1 every 6 hours with food until gone in addition to the Percocet and the Phenergan. Recommend 2 Percocet every 4-6 hours due to her BMI. Sean Mata DPM [facility]02-05-2025 Miscellaneous Notes* Telephone Encounter - Sean Mata DPM - 01/02/2025 12:36 PM EST Called patient at [phone] to return call regarding pain management. I spoke with the patient. Advised I sent a prescription over for her electronically for Toradol 10 mg tablets take 2 right away the 1 every 6 hours with food until gone in addition to the Percocet and the Phenergan. Recommend 2 Percocet every 4-6 hours due to her BMI. Sean Mata DPM documented in this encounterAultman Alliance Community Hospital02-03-2025 Miscellaneous Notes* Telephone Encounter - Sean Mata DPM - 12/31/2024 8:26 PM EST Called patient at her Lonnie's cell number at [phone] to check on postop progress. Received voicemail. [...] calling: self Call patient at: at home [phone] (home) [phone] (cell) Was an appointment scheduled: No Closing statement: Results or non-symptom based questions: Thank you for calling [facility], your call will be returned within the next business day. Marva Almeida documented in this encounterAultman Alliance Community Hospital02-03-2025 Telephone encounter Note * Telephone Encounter - Sean Mata DPM - 12/31/2024 8:26 PM EST Called patient at her Lonnie's cell number at [phone] to check on postop progress. Received voicemail. Left message that I called. Called patient back at 8:41 PM to same number. Spoke with who said she was doing well without any significant pain or problems at this time. Advised to call if any questions or problems between now and her first scheduled postop visit on December. Sean Mata DPM [facility] Work Phone: 1(187) 926-226502-03-2025 Telephone encounter Note* Telephone Encounter - Karissa Raman MA - 12/31/2024 3:25 PM EST Message has been sent directly to Dr Mata's phone. [facility]02-03-2025 Telephone encounter Note* Telephone Encounter - [...] calling: self Call patient at: at home [phone] (home) [phone] (cell) Was an appointment scheduled: No Closing statement: Results or non-symptom based questions: Thank you for calling [facility], your call will be returned within the next business day. Marva Almeida [facility]02-03-2025 NoteHNO ID: [id number] Author: ESTELLA GIBBONS AA Service: Anesthesiology Author Type: Labor Delivery Rn Type: Anesthesia Procedure Notes Filed: 12/31/2024 09:57 [...] December 31, 2024 TIME: 9:57 AM CSN: [id number] [facility] Hospital02-03-2025 NoteHNO ID: [id number] Author: ESTELLA GIBBONS AA Service: Anesthesiology Author Type: Labor Delivery Rn Type: Anesthesia Procedure Notes Filed: 12/31/2024 08:20 [...] December 31, 2024 TIME: 8:18 AM CSN: [id number] Berger Hospital01-31-2025 History and physical note* Ary Rocha APRN.IRENE - 12/28/2024 10:10 AM EST Images from the original note were not included. [facility] HISTORY AND PHYSICAL EXAMINATION SERVICE DATE: 12/28/2024 SERVICE TIME: 10:08 AM PRIMARY CARE PHYSICIAN: Monique Emmanuel, IRENE, ASSESSMENT MANAGER REASON FOR VISIT: Noel Paul is [...] STOP-Bang Score: STOP-Bang Score: 0 (Awaiting CPAP) [id number] Score: Age: <65 Sex: female [id number] Score: ARISCAT Score: Age: <=50 Preoperative SpO2: [...] chart review and guidance on proceeding at [facility]. 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 DEXCOM G7 SENSOR eduin [...] fevers. Neuro: No history of TIA's, stroke, SPECIAL WEAPONS AND TACTICS OFFICER tumor, impaired sensorium, hemiplegia, paraplegia or quadraplegia. [...] date range. HgbA1c 10/15/[address]% CT Neck 1224/ 1. There is mild induration of the [...] voices comprehension and compliance. SIGNATURE: Ary Rocha APRN.ASSESSMENT MANAGER PATIENT NAME: Noel Paul DATE: 12/28/2024 TIME: 10:21 AM [facility]01-31-2025 History and physical note* Ary Rocha APRN.CNP - 12/28/2024 10:10 AM EST Images from the original note were not included. [facility] HISTORY AND PHYSICAL EXAMINATION SERVICE DATE: 12/28/2024 SERVICE TIME: 10:08 AM PRIMARY CARE PHYSICIAN: Monique Emmanuel CNP, ASSESSMENT MANAGER REASON FOR VISIT: Noel Paul is [...] STOP-Bang Score: STOP-Bang Score: 0 (Awaiting CPAP) [id number] Score: Age: <65 Sex: female [id number] Score: ARISCAT Score: Age: <=50 Preoperative SpO2: [...] chart review and guidance on proceeding at [facility]. 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 DEXCOM G7 SENSOR eduin [...] fevers. Neuro: No history of TIA's, stroke, SPECIAL WEAPONS AND TACTICS OFFICER tumor, impaired sensorium, hemiplegia, paraplegia or quadraplegia. [...] voices comprehension and compliance. SIGNATURE: Ary Rocha APRN.ASSESSMENT MANAGER PATIENT NAME: Noel Paul DATE: 12/28/2024 TIME: 10:21 AM documented in this encounterAultman Alliance Community Hospital01-29-2025 Instructions* Patient Instructions* Ary Rocha APRN.CNP - 12/26/2024 7:49 AM EST Images from the original note were not included. [facility] PATIENT PREOPERATIVE INSTRUCTIONS Sean Mata,* has scheduled you for your procedure at this surgery center: [facility]: [phone] --[phone] [facility] [address]. Please read below carefully for your personalized [...] office. If you are currently using a icgl-rhd-rviq injectable or oral medication for diabetes or [...] Procedures: - YOU MUST HAVE A RESPONSIBLE ELECTRIC SCOOP OPERATOR TAKE YOU HOME. A INTERNATIONAL MARKETING EXECUTIVE OR PLACEMENT INTERVIEWER CANNOT BE MADE A RESPONSIBLE ELECTRIC SCOOP OPERATOR. - We recommend that a responsible [...] Advance Directive, please fax a copy to [phone] or email to for it to be [...] your chart that day. 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 documented in this encounterAultman Alliance Community Hospital01-15-2025 NoteHNO ID: [id number] Author: SEAN MATA DPM Service: ? 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 DEXCOM G7 SENSOR eduin [...] to proceed. We will complete scheduling. CALLIE WardTri[facility]01-[facility] History of Present illness Narrative* Sean Mata DPM - 12/12/2024 10:39 AM EST [facility] Department of Orthopedics [facility] Orthopedic Surgery Name: Noel Paul Date of Service: December 12, 2024 CC/HPI: This 34 year old pleasant female patient presents to the clinic today with her present upon referral from Dr. Pato Aevlar. 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 DEXCOM G7 SENSOR eduin [...] scheduling. Sean Mata DPM documented in this encounterA[facility]-2025 NoteHNO ID: [id number] Author: JAMAL REYNOSO RT(Misha) Service: ? Author [...] PATIENT PRESENTS WITH AN IMPLANTABLE OR ATTACHED GRID CASTER: No RADIOLOGY DEPARTMENT: General X-ray: Exam(s) Completed: Lower Extremity X-Ray(s): Foot, Right PERIPHERAL IV DATA: Not applicable SIGNED BY: RT Manju(R) December 12, 2024 9:29 [facility]01-15-2025 History of Present illness Narrative* Jamal Reynoso RT(R) - 12/12/2024 9:29 AM EST Radiology Service Progress Note PATIENT NAME: oNel Paul DATE OF SERVICE: December 12, 2024 [...] PATIENT PRESENTS WITH AN IMPLANTABLE OR ATTACHED GRID CASTER: No RADIOLOGY DEPARTMENT: General X-ray: Exam(s) Completed: Lower Extremity X- Ray(s): Foot, Right PERIPHERAL IV DATA: Not applicable SIGNED BY: RT Manju(R) December 12, 2024 9:29 AM documented in this encounterAultman [facility] Hospital12-30-2024 NoteOrthopedic Surgery Subjective Pain of the [...] 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 Kat Her MD Orthopedic Surgery, Management Department Chair [facility] 11/26/2024[facility]11-27-2024 History of Present illness Narrative* Pato [...] today for follow-up of MRI results at [facility]. Allergies: Allergies Allergen Reactions Sulfa Antibiotics Rash and Hives Past Medical History: Past Medical History: Diagnosis Date Diabetes ([facility]) Ear problems GERD [...] 2 diabetes mellitus without complication, unspecified whether mcfp insulin use ([facility]) 3. Accessory navicular [...] need more invasive surgery. Will refer to [facility] Dr. [place] for referral and consultation at tertiary care center secondary to more advanced type procedure may be necessary. Will refer for consultation and possible further intervention Pato Avelar DPM documented in this encounterRanken Jordan Pediatric Specialty H[id number] History of Present illness Narrative* Pato Avelar [...] History: Past Medical History: Diagnosis Date Diabetes ([facility]) Ear problems GERD [...] right Pato Avelar DPM documented in this encounterRanken Jordan Pediatric Specialty HospitalEdrnnxzqhm79-93-7599 History of Present illness Narrative* Pato Avelar [...] diagnosis. Pato Avelar DPM documented in this [facility]10-11-2024 Telephone encounter Note* Telephone Encounter - Pato Avelar DPM - 09/07/2024 8:26 AM EDT Has been called for possible increase in pain medication and will switch from hydrocodone to oxycodone and sent to [facility] and [place] [facility] HospitalLyyoeafsmm10-75-1798 Miscellaneous Notes* Telephone Encounter - Pato Avelar DPM - 09/07/2024 8:26 AM EDT Has been called for possible increase in pain medication and will switch from hydrocodone to oxycodone and sent to [facility] documented in this [facility]10-03-2024 History of Present illness Narrative* Pato Avelar [...] History: Past Medical History: Diagnosis Date Diabetes ([facility]) Ear problems GERD [...] cool tibia to toes b/l NEURO: 5.07 [place] Deyanira monofilament test positive to digits and [...] 2 diabetes mellitus without complication, unspecified whether mcfp insulin use ([facility]) 3. Heel spur, [...] risks, alternatives, benefits, post op complications and adjunct faculty for medical terminology expectations were discussed including but not limited [...] 2024 Pato Avelar DPM documented in this encounterRanken Jordan Pediatric Specialty [id number] History of Present illness Narrative* Pato Avelar [...] History: Past Medical History: Diagnosis Date Diabetes ([facility]) Ear problems GERD [...] 2 diabetes mellitus without complication, unspecified whether adjunct faculty for medical terminology insulin use ([facility]) PLAN Patient to [...] Patient may continue with conservative treatments including jmha-opy-dqmblfr anti- inflammatories and other treatments suggested today. Patient may want to be s cheduled for surgical intervention in the near future. Patient had a right modified Kidner procedure to the right foot with removal of accessory navicular with postoperative pain medicine of [place] and will see family Lien for preop clearance. This condition is unrelated to prior condition Pato Avelar DPM documented in this encounterRanken Jordan Pediatric Specialty [id number] Telephone encounter Note* Telephone Encounter - GIOVANI MURRY - 07/31/2024 12:54 PM EDT Pt called back, would like scanned at next appt [facility] [id number] Miscellaneous Notes* Telephone Encounter - GIOVANI MURRY - 07/31/2024 12:54 PM EDT Pt called back, would like scanned at next appt * Telephone Encounter - GIOVANI MURRY - 07/31/2024 12:42 PM EDT Left vm to go over benefits * Telephone Encounter - Marti Murry MA - 07/27/2024 10:44 AM EDT Per call to Elda CHILDRESS @ [phone] with Denise Marroquin - I verified the policy is current and active with an effective date of 11/28/2020. L3020 is covered at 100% as both the ded and oop have been met. There are no frequency limits, no exclusions, and no prior authorizations needed. Ref#: [id number]. * Telephone Encounter - Pato Avelar DPM - 07/19/2024 4:56 PM EDT Please precertify for custom orthotics for the diagnosis of Posterior tibial tendinitis bilaterally documented in this encounterRanken Jordan Pediatric Specialty HospitalBjhklkheej55-34-8746 Telephone encounter Note* Telephone Encounter - GIOVANI MURRY - 07/31/2024 12:42 PM EDT Left vm to go over benefits [facility] HospitalUbgabmxbpq81-83-4213 Telephone encounter Note* Telephone Encounter - Marti Murry MA - 07/27/2024 10:44 AM EDT Per call to Elda CHILDRESS @ [phone] with Denise Marroquin - I verified the policy is current and active with an effective date of 11/28/2020. L3020 is covered at 100% as both the ded and oop have been met. There are no frequency limits, no exclusions, and no prior authorizations needed. Ref#: [id number]. [facility] [id number] History of Present illness Narrative* Jaime Woods [...] the next 7-10 days. Patient will use hmfn-bkt-bsnkugh ibuprofen 3 times a day with food to help decrease inflammation. The patient may also benefit from a mouth guard. We will consider referral to Dr. Adali SALAZAR if there is no improvement documented in this encounterRanken Jordan Pediatric Specialty HospitalSfyddifbou73-99-8909 Telephone encounter Note* Telephone Encounter - Pato Avelar DPM - 07/19/2024 4:56 PM EDT Please precertify for custom orthotics for the diagnosis of Posterior tibial tendinitis bilaterally [facility] HospitalXlwwcgxmna12-84-3915 History of Present illness Narrative* Pato Avelar DPM - 07/19/2024 4:10 PM EDT Patient: Nole Paul : 1990 PCP: [facility] Provider MD Milad SUBJECTIVE This is a [...] prior to procedure and rates pain a / Allergies: Allergies Allergen Reactions Sulfa Antibiotics Rash and Hives Past Medical History: Past Medical History: Diagnosis Date Diabetes ([facility]) Medications: Current Outpatient [...] 2 diabetes mellitus without complication, unspecified whether adjunct faculty for medical terminology insulin use ([facility]) 3. Accessory navicular [...] treatments Pato Avelar DPM documented in this encounterRanken Jordan Pediatric Specialty [id number] Evaluation note* Encounter Date Diagnosis Assessment Notes Treatment Notes Treatment Clinical Notes Feb, Finger pain, right (ICD-10 - M79 .644) Feb,prain of right ring finger, unspecified site of digit, initial encounter (ICD-10 - S63.614A)Keep your finger jacob taped for comfort and compression for the next week. You may remove the by taping for showering or if your pain improves. Take ibuprofen, 600 mg up to 3 times a day with food as needed for pain and swelling. Follow-up with your family physician if no improvement in 5 to 7 days. KO-SU Other Evaluation + Plan note Future Appointments Appointment Date:05/09/2024 07:30:00 AM Scheduled Provider: [facility] noteNo assessment information available [facility] Work Phone: Evaluation note* Diagnosis 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 Type 2 diabetes mellitus without complication, unspecified whether mcfp insulin use (CMS/HCC) Heel spur, left Plantar fasciitis Plantar fascial fibromatosis Contracture of left ankle Contracture of right ankle [facility]* Diagnosis 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 documented in this encounter [facility]* Diagnosis 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 Contracture of right ankle Type 2 diabetes mellitus without complication, unspecified whether adjunct faculty for medical terminology insulin use (CMS/HCC) documented in this encounter [facility]Evaluation note* Diagnosis 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 Contracture of right ankle documented in this encounter [facility]Evaluation note* Diagnosis 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 Contracture of right ankle Stress fracture of right foot, initial encounter documented in this encounter [facility]Evaluation note* Diagnosis Stress fracture of right foot, initial encounter- Primary Type 2 diabetes mellitus without complication, unspecified whether adjunct faculty for medical terminology insulin use (CMS/HCC) Accessory navicular bone of right foot documented in this encounter [facility] HealthcareEvaluation note* Diagnosis Posterior tibial tendonitis of right leg- Primary Accessory navicular bone of left foot Type 2 diabetes mellitus without complication, unspecified whether mcfp insulin use (CMS/HCC) Accessory navicular bone of right foot documented in this encounter [facility] HealthcareEvaluation note* Diagnosis Arthralgia of left temporomandibular joint- Primary Left ear pain Unspecified otalgia Chronic rhinitis Fullness in ear, left documented in this encounter [facility]Evaluation note* Diagnosis 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 Posterior tibial tendonitis of right leg Type 2 diabetes mellitus without complication, unspecified whether mcfp insulin use (CMS/HCC) documented in this encounter [facility] HealthcareEvaluation note* Diagnosis Accessory navicular bone of left foot- Primary documented in this encounter [facility]Evaluation note* Diagnosis Pain in right foot- Primary Pain in limb Accessory navicular bone of right foot [facility] Diagnosis Pain Generalized pain documented in this encounter [facility]* Diagnosis 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 documented in this encounter [facility]Evaluation [facility]* Diagnosis Pre-op evaluation- Primary Preoperative examination, [...] 10:05 AM ESTAssociated Problem(s): BMI 60.0-69.9, adult ([facility]) Assessment: diet and exercise encouraged BMI 62 * Assessment & Plan Note - Ary Rocha APRN.CNP - 12/28/2024 10:05 AM ESTAssociated Problem(s): Diabetes mellitus without complication ([facility]) Assessment: managed with oral med, stable Follows up with PCP BG at home 120's HgbA1c 6.6% * Assessment & Plan Note - Ary Rocha APRN.CNP - 12/28/2024 10:04 AM ESTAssociated Problem(s): Acid reflux Assessment: managed with med, stable Follows up with PCP documented in this encounter [facility]* Diagnosis Pain- Primary Generalized pain Pain Generalized pain Pre-op evaluation- Primary Preoperative examination, unspecified Gastroesophageal reflux disease, unspecified whether esophagitis present Diabetes mellitus without complication ([facility]) Type II or unspecified type diabetes mellitus without mention of complication, not stated as uncontrolled BMI 60.0-69.9, adult ([facility]) Body Mass Index 60.0-69.9, adult AQUILES (obstructive sleep apnea) Obstructive sleep apnea (adult) (pediatric) documented in this encounter [facility] note* Diagnosis Pre-op evaluation- Primary Preoperative examination, unspecified Gastroesophageal reflux disease, unspecified whether esophagitis present Diabetes mellitus without complication (HCC) Type II or unspecified type diabetes mellitus without mention of complication, not stated as uncontrolled BMI 60.0-69.9, adult ([facility]) Body Mass Index 60.0-69.9, adult AQUILES (obstructive [...] not stated as uncontrolled BMI 60.0-69.9, adult ([facility]) Body Mass Index 60.0-69.9, adult AQUILES (obstructive [...] not stated as uncontrolled BMI 60.0-69.9, adult ([facility]) Body Mass Index 60.0-69.9, adult AQUILES (obstructive [...] not stated as uncontrolled BMI 60.0-69.9, adult ([facility]) Body Mass Index 60.0-69.9, adult AQUILES (obstructive [...] not stated as uncontrolled BMI 60.0-69.9, adult ([facility]) Body Mass Index 60.0-69.9, adult AQUILES (obstructive [...] not stated as uncontrolled BMI 60.0-69.9, adult ([facility]) Body Mass Index 60.0-69.9, adult AQUILES (obstructive [...] not stated as uncontrolled BMI 60.0-69.9, adult ([facility]) Body Mass Index 60.0-69.9, adult AQUILES (obstructive sleep apnea) Obstructive sleep apnea (adult) (pediatric) S/P foot surgery, right documented in this encounter [facility] note* Diagnosis Capsulitis of metatarsophalangeal (MTP) joint of right foot- Primary documented in this encounter [facility] note* Diagnosis Pre-op evaluation- Primary Preoperative examination, unspecified Gastroesophageal reflux disease, unspecified whether esophagitis present Diabetes mellitus without complication (HCC) Type II or unspecified type diabetes mellitus without mention of complication, not stated as uncontrolled BMI 60.0-69.9, adult ([facility]) Body Mass Index 60.0-69.9, adult AQULIES (obstructive sleep apnea) Obstructive sleep apnea (adult) [...] [facility] note* Diagnosis Capsulitis of metatarsophalangeal (MTP) joint of right foot- Primary Type 2 diabetes mellitus without complication, unspecified whether adjunct faculty for medical terminology insulin use documented in this encounter [facility] note* Diagnosis Pre-op evaluation- Primary Preoperative examination, unspecified Gastroesophageal reflux disease, unspecified whether esophagitis present Diabetes mellitus without complication (HCC) Type II or unspecified type diabetes mellitus without mention of complication, not stated as uncontrolled BMI 60.0-69.9, adult ([facility]) Body Mass Index 60.0-69.9, adult AQUILES (obstructive sleep apnea) Obstructive sleep apnea (adult) (pediatric) Sinus tarsitis, right- Primary documented in this encounter [facility] note* Diagnosis Pre-op evaluation- Primary Preoperative examination, unspecified Gastroesophageal reflux disease, unspecified whether esophagitis present Diabetes mellitus without complication (HCC) Type II or unspecified type diabetes mellitus without mention of complication, not stated as uncontrolled BMI 60.0-69.9, adult ([facility]) Body Mass Index 60.0-69.9, adult AQUILES (obstructive sleep apnea) Obstructive sleep apnea (adult) (pediatric) S/P foot surgery, right- Primary Chronic pain of right ankle documented in this encounter [facility] note* Diagnosis Pre-op evaluation- Primary Preoperative examination, unspecified Gastroesophageal reflux disease, unspecified whether esophagitis present Diabetes mellitus without complication (HCC) Type II or unspecified type diabetes mellitus without mention of complication, not stated as uncontrolled BMI 60.0-69.9, adult ([facility]) Body Mass Index 60.0-69.9, adult AQUILES (obstructive sleep apnea) Obstructive sleep apnea (adult) (pediatric) Chronic pain of right ankle documented in this encounter [facility] note* Diagnosis Pre-op evaluation- Primary Preoperative examination, unspecified Gastroesophageal reflux disease, unspecified whether esophagitis present Diabetes mellitus without complication (HCC) Type II or unspecified type diabetes mellitus without mention of complication, not stated as uncontrolled BMI 60.0-69.9, adult ([facility]) Body Mass Index 60.0-69.9, adult AQUILES (obstructive sleep apnea) Obstructive sleep apnea (adult) (pediatric) S/P foot surgery, right- Primary Chronic pain of right ankle documented in this encounter [facility]* Diagnosis Capsulitis of metatarsophalangeal (MTP) joint of right foot- Primary Contracture of right ankle Posterior tibial tendonitis of right leg documented in this encounter [facility] Healthcare[facility] general Narrative - Reported* Type Description Date Medical History Acquired hypothyroidism Medical Historyvitamin D deficiencySurgical Historycholecystectomy Hospitalization HistoryNo Hospitalization history information KO-SU Other History of Present illness Narrative* Pato [...] History: Past Medical History: Diagnosis Date Diabetes ([facility]) Ear problems GERD [...] 2 diabetes mellitus without complication, unspecified whether mcfp insulin use ([facility]) PLAN Patient to [...] Kidner right foot by Dr Mata at [facility]. Pt denies n/f/v/c and has negative [...] History: Past Medical History: Diagnosis Date Diabetes (HCC) Ear problems GERD (gastroesophageal reflux disease) 2011 [...] Medrol pack Patient is to receive a [place] style brace AFO to the right foot [...] Ibuprofen Pato Avelar DPM documented in this [facility] course Narrative No data available for this section [facility] Discharge instructions No data available for this section [facility] Discharge instructions Additional Instructions DISCHARGE INSTRUCTIONS [...] operative site FOLLOW UP Phone numbers: Office [phone] [ ][facility] Work Phone: Progress note No data available for this section [facility] (narrative)* Diagnostic Procedure Only (Routine) - ClosedSpecialtyDiagnoses / ProceduresReferred By ContactReferred To ContactXR IMAGING Diagnoses Pain Procedures XR FOOT GENERAL 3V AP/LAT/OBL RIGHT RADEX FOOT COMPLETE MINIMUM 3 VIEWS Sean Mata DPM [address] [place] [address] [place] [address] Referral IDStaSamaritan Hospital DateExpiration DateVisits RequestedVisits [id number] Auto-Generated Referral [facility] for referral (narrative)* Diagnostic Procedure Only (Routine) - ClosedSpecialtyDiagnoses / ProceduresReferred By ContactReferred To ContactXR IMAGING Diagnoses Pain Procedures XR FOOT GENERAL 3V AP/LAT/OBL RIGHT RADEX FOOT COMPLETE MINIMUM 3 VIEWS Sean Mata DPM [address] [place] [address] [place] [address] Referral IDStatusasonStwarrenton DateExpiration DateVisits RequestedVisits [id number] Auto-Generated Referral [facility] for referral (narrative)No reason for referral information availableSelect Medical [facility] Work Phone: Reason for visit Narrative* Diagnostic Procedure Only (Routine) - ClosedSpecialtyDiagnoses / ProceduresReferred By ContactReferred To ContactXR IMAGING Diagnoses Pain Procedures XR FOOT GENERAL 3V AP/LAT/OBL RIGHT RADEX FOOT COMPLETE MINIMUM 3 VIEWS Sean Mata DPM [address] [place] [address] [place] [address] Referral IDStatusReasonStart DateExpiration DateVisits RequestedVisits [id number] Auto-Generated Referral [facility] for visit Narrative* Diagnostic Procedure Only (Routine) - ClosedSpecialtyDiagnoses / ProceduresReferred By ContactReferred To Contact XR IMAGING Diagnoses S/P foot surgery, right Procedures XR FOOT GENERAL 3V AP/LAT/OBL RIGHT RADEX FOOT COMPLETE MINIMUM 3 VIEWS Sean Mata DPM [address] [place] [address] Phone: tel: fax: [place] [address] Referral IDStatusReasonStwarrenton DateExpiration DateVisits RequestedVisits [id number] Auto-Generated Referral [facility] for visit Narrative* Diagnostic Procedure Only (Routine) - ClosedSpecialtyDiagnoses / ProceduresReferred By ContactReferred To Contact XR IMAGING Diagnoses S/P foot surgery, right Procedures XR FOOT GENERAL 3V AP/LAT/OBL RIGHT RADEX FOOT COMPLETE MINIMUM 3 VIEWS Sean Mata DPM [address] [place] [address] Phone: tel: fax: [place] [address] Referral IDStatusReasonStart DateExpiration DateVisits RequestedVisits [id number] Auto-Generated Referral [facility] for visit Narrative* MRI/CT (Routine) - ClosedSpecialty Diagnoses / ProceduresReferred By ContactReferred To ContactMR IMAGING Diagnoses Chronic pain of right ankle Procedures MRI ANKLE WO IVCON RIGHT MRI ANY JT LOWER EXTREM W/O CONTRAST MATRL Sean Mata DPM [address] [place] [address] Phone: tel: fax: [facility] [address] Referral IDStatusReasonStdaniela DateExpiration DateVisits RequestedVisits [id number] Auto-Generated Referral / [facility] Summary Purpose Family History No Family History Records Found Relationship Condition Age at Onset Recorded Date/T luis alfredo Not Specified Unknown Heart diseaseUnknown Relationship Condition Age at Onset Recorded Date/T luis alfredo mother Unknown Heart diseaseUnknown Relationship Condition Age at Onset Recorded Date/T luis alfredo mother Unknown Heart diseaseUnknownDiabetes mellitusUnknown Relationship Condition Age at Onset Recorded Date/T luis alfredo mother Unknown Heart diseaseUnknownDiabetes mellitusUnknownsisterCongenital anomaly of heart Unknown Advance Directives No [...] 15, 2025 1:59 am Reason for Referral SpecialtyDiagnoses / ProceduresReferred By ContactReferred To Contact Diagnoses Accessory navicular bone of right foot Pato Avelar DPM [address] [address] Referral IDStatusReasonStart DateExpiration DateVisits RequestedVisits [id number] [id number]/ Additional Source Comments REASON FOR VISIT (unrecogniz ed section and content) ReasonCommentsConsent Or InstructionsPre op- rt kidnerReasonCommentsPost-op1st post op rt ftReasonCommentsPost-op16 D post op rt ftReasonCommentsPost-op29 D rt ft F/UReasonCommentsFollow-upER FOLLOW UPReasonCommentsOtitis ExternaNew Patient : Otitis externa left earReasonCommentsFoot PainF/U rt ft painReasonOnset Date CommentsCasting For Braces Or Tvrexblpm08/22/2024easonCommentsRadiology XR ReasonCommentsPainReasonCommentsSurgical FollowupReasonCommentsPre-Op ExamReason CommentsRadio Gen RMPReasonCommentsPost OpReasonCommentsPatient UpdateReason CommentsFoot PainReasonCommentsPost OpPainReasonCommentsFollow-upRt edlReason CommentsPost OpReasonCommentsAnkle Pain INFORMATION SOURCE (unrecogn ized section and content) DATE CREATED AUTHOR 05/06/2023 [facility] [place] DATE CREATED AUTHOR AUTHOR'S ORGANIZ ATION 04/26/2024 [facility] DATE CREATED AUTHOR AUTHOR'S ORGANIZ ATION 07/01/2024 [facility] EPIC DATE CREATED AUTHOR AUTHOR'S ORGANIZ ATION 09/12/2024 [facility] DATE CREATED AUTHOR AUTHOR'S ORGANIZ ATION 09/13/2024 [facility] DATE CREATED AUTHOR AUTHOR'S ORGANIZ ATION 09/15/2024 [facility] DATE CREATED AUTHOR AUTHOR'S ORGANIZ ATION 12/09/2024 [facility] DATE CREATED AUTHOR AUTHOR'S ORGANIZ ATION 07/15/2025 [facility] DATE CREATED AUTHOR AUTHOR'S ORGANIZ ATION 09/05/2025 [facility] DATE CREATED AUTHOR AUTHOR'S ORGANIZ ATION 09/07/2025 [facility] EPIC Care Teams (unrecognized sec tion and content) Team Status: Active Member Role Status Dates LORI Alvarez Primary Care Provider Active Team Status: Active Member Role Status Dates Monique Alicia Lien , MUD ANALYSIS OPERATOR-C Primary Care Provider Active Start: June 15, 2025 Merline French ProviderActiveStart: June 15, 2025 Neo Mclaughlin MDAdmit ProviderActiveStart: June 15, 2025 Neo Mclaughlin MDAttending ProviderActiveStart: June 15, 2025 Team Status: Inactive Member Role Status Dates Monique Dudley NP-C Attending Provider Active S tart: February 27, 2024 End: February 26lorene Emmanuel , MUD ANALYSIS OPERATOR-CPrimary Care ProviderActiveStart: February 27, 2024 End: February 27, 2024 Team Status: Active Member Role Status Dates Monique Dudley NP-C Attending Provider Active S tart: February 27, 2024 Monique Emmanuel , MUD ANALYSIS OPERATOR-CPrimary Care ProviderActiveStart: February 27, 2024 Team Status: Inactive Member Role Status Dates Monique Emmanuel , MUD ANALYSIS OPERATOR-C Primary Care Provider Active Start: May 16, 2024 End: May 16, 2024ADAN Hernandezttending ProviderActiveStart: May 16, 2024 End: May 16, 2024Team MemberRelationshipSpecialtyStart DateEnd Date Erich Garcia MD [address] [place] [phone] PCP - GeneralFamily Medicine07/24/24 Monique Emmanuel MD [address] [place] [phone] Referring Physicianmily Medicine03/29/24 Monique Emmanuel MD [address] [place] [phone] Referring Physicianmily Medicine07/24/24 Jaime Woods DO [address] [place] [place] [address] Otolaryngology07/24/24Team MemberRelationshipSpecialtyStart DateEnd Erich Garcia MD [address] [place] [phone] PCP - GeneralFamily Medicine07/24/24 Monique Emmanuel MD [address] [place] [phone] Referring PhysicianFamily Medicine03/29/24 Monique Emmanuel MD [address] [place] [address]20 Referring PhysicianFami Medicine07/24/24 Jaime Woods DO [address] [place] [address] Otolaryngology07/24/24Team MemberRelationshipSpecialtyStart DateEnd Erich Garcia MD [address] [place] [phone] PCP - GeneralFamily Medicine07/24/24 Monique Emmanuel MD [address] [place] [address]69[address] Referring PhysicianFamily Medicine03/29/24 Monique Emmanuel MD [address] [place] [phone] Referring PhysicianFami Medicine07/24/24 Jaime Woods DO [address] [place] [address] Otolaryngology07/24/24Team MemberRelationshipSpecialtyStart End Erich Garcia MD [address] [place] [phone] PCP - GeneralFamily Medicine07/24/24 Monique Emmanuel MD [address] [place] [address]40 Referring PhysicianFamily Medicine03/29/24 Monique Emmanuel MD [address] [place] [address] Referring PhysicianFami Medicine07/24/24 Jaime Woods DO [address] [place] [address] Otolaryngology07/24/24Team MemberRelationshipSpecialtyStart DateEnd Erich Garcia MD [address] [place] [phone] PCP - GeneralFamily Medicine07/24/24 Monique Emmanuel MD [address] [place] [address] 35618 Referring PhysicianFamily Medicine03/29/24 Monique Emmanuel MD [address] [place] [address] Referring PhysicianFabristol [facility] Medicine07/24/24 Jaime Woods DO [address] [place] [address] Otolaryngology07/24/24Team MemberRelationshipSpecialtyStart End Erich Garcia MD [address] [place] [phone] PCP - GeneralFamily Medicine07/24/24 Monique Emmanuel MD [address] [place] [address] 57661 Referring PhysicianFamily Medicine03/29/24 Monique Emmanuel MD [address] [place] [address] [phone] Referring PhysicianFami Medicine07/24/24 Jaime Woods DO [address] [place] [place] [address] Otolaryngology07/24/24Team MemberRelationshipSpecialtyStart DateEnd Erich Garcia MD [address] [place] [phone] PCP - GeneralFamily Medicine07/24/24 Monique Emmanuel MD [address] [place] [phone] Referring PhysicianFamily Medicine03/29/24 Monique Emmanuel MD [address] [place] [address]3021 Referring PhysicianFami Medicine07/24/24 Jaime Woods DO [address] [place] [address] Otolaryngology07/24/24Team MemberRelationshipSpecialtyStart DateEnd Date Erich Garcia MD [address] [place] [phone] PCP - GeneralFamily Medicine07/24/24 Monique Emmanuel MD [address] [place] [address] Referring Physicianmily Medicine03/29/24 Monique Emmanuel MD [address] [place] [address] Referring PhysicianFamily Medicine07/24/24 Jaime Woods DO [address] [facility] [place] [address] Otolaryngology07/24/24Team MemberRelationshipSpecialtyStart DateEnd Date Unallocated, Noms MD Ousmane [address] [place] [address] PCP - GeneralFamily Medicine03/29/24 Monique Emmanuel MD [address] [place] [phone] Referring Physicianmi Medicine03/29/24Team MemberRelationshipSpecialtyStart DateEnd Date Erich Garcia MD [address] [place] [phone] PCP - Generalmily Medicine07/24/24 [place] [address] [place] [address] Referring Physicianmily Medicine03/29/24 Monique Emmanuel MD [address] [place] [address] Referring PhysicianFamily Medicine07/24/24 Jaime Woods DO [address] [place] [address] Otolaryngology07/24/24Team MemberRelationshipSpecialtyStart DateEnd Date Unallocated, Noms MD Ousmane [address] [place] [address] PCP - GeneralFamily Medicine03/29/24 Monique Emmanuel MD [address] [place] [phone] Referring Physicianmily Medicine03/29/24Team MemberRelationshipSpecialtyStart DateEnd Date Erich Garcia MD [address] [place] [phone] PCP - GeneralFamily Medicine07/24/24 Monique Emmanuel MD [address] [place] [phone] Referring PhysicianFamily Medicine03/29/24 Monique Emmanuel MD [address] [place] [address] [phone] Referring PhysicianFamily Medicine07/24/24 Jaime Woods DO [address] [place] [address] Otolaryngology07/24/24Team MemberRelationshipSpecialtyStart DateEnd Date Erich Garcia MD [address] [place] [phone] PCP - GeneralFamily Medicine07/24/24 Monique Emmanuel MD [address] [place] [address] 46[address] Referring PhysicianFamily Medicine03/29/24 Monique Emmanuel MD [address] [place] [address] 33772 Referring PhysicianFamily Medicine07/24/24 Jaime Woods DO [address] [place] [address] Otolaryngology07/24/24Team MemberRelationshipSpecialtyStart DateEnd Date Erich Garcia MD [address] [place] [phone] PCP - GeneralFamily Medicine07/24/24 Monique Emmanuel MD [address] [place] [address] 51780 Referring PhysicianFamily Medicine03/29/24 Monique Emmanuel MD [address] [place] [address]88 Referring PhysicianFamily Medicine07/24/24 Jaime Woods DO [address] [place] [address] Otolaryngology07/24/24Team MemberRelationshipSpecialtyStart DateEnd Date Unallocated, Keily Romeo MD [address] [place] [address] PCP - GeneralFamily Medicine/ Erich Garcia MD [address] [place] [phone] PCP - GeneralFamily Medicine07/24/24 Monique Emmanuel MD [address] [place] [address] 89613 Referring PhysicianFamily Medicine03/29/24 Monique Emmanuel MD [address] [place], [place] [phone] Referring PhysicianFamily Medicine07/24/24 Jaime Woods DO [address] [facility] [place] [address] Otolaryngology07/24/24Team MemberRelationshipSpecialtyStart DateEnd Date Monique Emmanuel CNP [address] [place] [address] PCP - GeneralInternal Medicine12/17/24Team MemberRelationshipSpecialtyStart Date End Date Monique Emmanuel CNP [address] [place] [address] PCP - GeneralInternal Medicine12/17/24Team MemberRelationshipSpecialtyStart Date End Date Monique Emmanuel CNP [address] [place] [address] PCP - GeneralInternal Medicine12/17/24Team MemberRelationshipSpecialtyStart Date End Date Monique Emmanuel CNP [address] [place] [facility] [place] [place] [address] PCP - GeneralInternal Medicine12/17/24Team MemberRelationshipSpecialtyStart Date End Date Monique Emmanuel CNP [address] [place] [facility] [place] [address] PCP - GeneralInternal Medicine12/17/24Team MemberRelationshipSpecialtyStart Date End Date Monique Emmanuel CNP [address] [place] [facility] [place] [place] [address] PCP - GeneralInternal Medicine12/17/24Team MemberRelationshipSpecialtyStart Date End Date Monique Emmanuel CNP [address] [place] [facility] [place] [address] PCP - GeneralInternal Medicine12/17/24Team MemberRelationshipSpecialtyStart Date End Date Monique Emmanuel CNP [address] [place] [facility] [place] [address] PCP - GeneralInternal Medicine12/17/24 Team Status: Inactive Member Role Status Dates Monique Emmanuel NP-C Primary Care Provider Active Start: February 05, 2025 End: February 05, 2025Nisreen Garcia ProviderActiveStart: February 05, 2025 End: February 05, 2025Team MemberRelationshipSpecialtyStart DateEnd Date Monique Emmanuel CNP [address] [place] [place] [place] [address] PCP - GeneralInternal Medicine12/17/24Team MemberRelationshipSpecialtyStart Date End Date Monique Emmanuel CNP [address] [place] [place] [place] [address] PCP - GeneralInternal Medicine12/17/24Team MemberRelationshipSpecialtyStart Date End Date Monique Emmanuel CNP [address] [place] [address] PCP - GeneralInternal Medicine12/17/24Team MemberRelationshipSpecialtyStart Date End Date Erich Garcia MD [address] [place] [phone] PCP - GeneralFamily Medicine07/24/24 Monique Emmanuel MD [address] [place] [address] 53588 Referring PhysicianFamily Medicine03/29/24 Monique Emmanuel MD [address] [place], [place] [phone] Referring PhysicianFamily Medicine07/24/24 Jaime Woods DO [address] [facility] [address] Otolaryngology07/24/24Team MemberRelationshipSpecialtyStart DateEnd Date Erich Garcia MD [address] [place] [phone] PCP - GeneralFamily Medicine07/24/24 Monique Emmanuel MD [address] [place] [address] 27102 Referring PhysicianFamily Medicine03/29/24 Monique Emmanuel MD [address] [place] [address] [phone] Referring PhysicianFamily Medicine07/24/24 Jaime Woods DO [address] [place] [address] Otolaryngology07/24/24Team MemberRelationshipSpecialtyStart DateEnd Date Monique Emmanuel, IRENE [address] [place] [place] [place] [address] PCP - GeneralInternal Medicine12/17/24Team MemberRelationshipSpecialtyStart Date End Date Monique Emmanuel, IRENE [address] [place] [address] PCP - GeneralInternal Medicine12/17/24Team MemberRelationshipSpecialtyStart Date End Date Monique Emmanuel, IRENE [address] [place] [place] [place] [address] PCP - GeneralInternal Medicine12/17/24Team MemberRelationshipSpecialtyStart Date End Date Monique Emmanuel, IRENE [address] [place] [place] [address] PCP - GeneralInternal Medicine12/17/24Team MemberRelationshipSpecialtyStart Date End Date Monique Emmanuel, IRENE [address] [place] [place] [place] [address] PCP - GeneralInternal Medicine12/17/24Team MemberRelationshipSpecialtyStart Date End Date Monique Emmanuel, IRENE [address] [place] [place] [address] PCP - GeneralInternal Medicine12/17/24Team MemberRelationshipSpecialtyStart Date End Date Monique Emmanuel IRENE [address] [place] [phone] PCP - GeneralInternal Medicine12/17/24 Team Status: Active Member Role Status Dates LORI Alvarez Primary Care Provider Active Start: June 15, 2025 Merline French ProviderActiveStart: June 15, 2025 Neo Mclaughlin MDAdmit ProviderActiveStart: June 15, 2025 Maryanne Unger RNOther ProviderActiveStart: June 15, 2025 Aleah Alexander ProviderActiveStart: June 15, 2025 Kvng Carcamo MDOther ProviderActiveStart: June 15, 2025 Suleman Pretty ProviderActiveStart: June 15, 2025 Aleah Pretty ProviderActiveStart: June 15, 2025 Queenie Harris ProviderActiveStart: June 15, 2025 Aleah Don ProviderActiveStart: June 15, 2025 Team Status: Inactive Member Role Status Dates LORI Alvarez Primary Care Provider Active Start: 2025 End: July 08, 2025Suleman Pretty ProviderActiveStart: 2025 End: 2025 Goals (unrecognized section and [...] or prosecute any alcohol or drug abuse patient.[facility] HospitalIn the event this information is protected by the Federal Confidentiality of Alcohol and Drug Abuse Patient Records regulations: The Federal rules restrict any use of the information to criminally investigate or prosecute any alcohol or drug abuse patient.[facility] HospitalIn the event this information is protected by the Federal Confidentiality of Alcohol and Drug Abuse Patient Records regulations: The Federal rules restrict any use of the information to criminally investigate or prosecute any alcohol or drug abuse patient.[facility] HospitalIn the event this information is protected by the Federal Confidentiality of Alcohol and Drug Abuse Patient Records regulations: The Federal rules restrict any use of the information to criminally investigate or prosecute any alcohol or drug abuse patient.[facility] HospitalIn the event this information is protected by the Federal Confidentiality of Alcohol and Drug Abuse Patient Records regulations: The Federal rules restrict any use of the information to criminally investigate or prosecute any alcohol or drug abuse patient.[facility] HospitalIn the event this information is protected by the Federal Confidentiality of Alcohol and Drug Abuse Patient Records regulations: The Federal rules restrict any use of the information to criminally investigate or prosecute any alcohol or drug abuse patient.[facility] HospitalIn the event this information is protected by the Federal Confidentiality of Alcohol and Drug Abuse Patient Records regulations: The Federal rules restrict any use of the information to criminally investigate or prosecute any alcohol or drug abuse patient.[facility] HospitalIn the event this information is protected by the Federal Confidentiality of Alcohol and Drug Abuse Patient Records regulations: The Federal rules restrict any use of the information to criminally investigate or prosecute any alcohol or drug abuse patient.[facility] HospitalIn the event this information is protected by the Federal Confidentiality of Alcohol and Drug Abuse Patient Records regulations: The Federal rules restrict any use of the information to criminally investigate or prosecute any alcohol or drug abuse patient.[facility] HospitalIn the event this information is protected by the Federal Confidentiality of Alcohol and Drug Abuse Patient Records regulations: The Federal rules restrict any use of the information to criminally investigate or prosecute any alcohol or drug abuse patient.[facility] HospitalIn the event this information is protected by the Federal Confidentiality of Alcohol and Drug Abuse Patient Records regulations: The Federal rules restrict any use of the information to criminally investigate or prosecute any alcohol or drug abuse patient.[facility] HospitalIn the event this information is protected by the Federal Confidentiality of Alcohol and Drug Abuse Patient Records regulations: The Federal rules restrict any use of the information to criminally investigate or prosecute any alcohol or drug abuse patient.[facility] HospitalIn the event this information is protected by the Federal Confidentiality of Alcohol and Drug Abuse Patient Records regulations: The Federal rules restrict any use of the information to criminally investigate or prosecute any alcohol or drug abuse patient.[facility] HospitalIn the event this information is protected by the Federal Confidentiality of Alcohol and Drug Abuse Patient Records regulations: The Federal rules restrict any use of the information to criminally investigate or prosecute any alcohol or drug abuse patient.[facility] HospitalIn the event this information is protected by the Federal Confidentiality of Alcohol and Drug Abuse Patient Records regulations: The Federal rules restrict any use of the information to criminally investigate or prosecute any alcohol or drug abuse patient.[facility] HospitalIn the event this information is protected by the Federal Confidentiality of Alcohol and Drug Abuse Patient Records regulations: The Federal rules restrict any use of the information to criminally investigate or prosecute any alcohol or drug abuse patient.[facility] HospitalIn the event this information is protected by the Federal Confidentiality of Alcohol and Drug Abuse Patient Records regulations: The Federal rules restrict any use of the information to criminally investigate or prosecute any alcohol or drug abuse patient.[facility] HospitalIn the event this information is protected by the Federal Confidentiality of Alcohol and Drug Abuse Patient Records regulations: The Federal rules restrict any use of the information to criminally investigate or prosecute any alcohol or drug abuse patient.[facility] HospitalIn the event this information is protected by the Federal Confidentiality of Alcohol and Drug Abuse Patient Records regulations: The Federal rules restrict any use of the information to criminally investigate or prosecute any alcohol or drug abuse patient.[facility] HospitalIn the event this information is protected by the Federal Confidentiality of Alcohol and Drug Abuse Patient Records regulations: The Federal rules restrict any use of the information to criminally investigate or prosecute any alcohol or drug abuse patient.[facility] HospitalIn the event this information is protected by the Federal Confidentiality of Alcohol and Drug Abuse Patient Records regulations: The Federal rules restrict any use of the information to criminally investigate or prosecute any alcohol or drug abuse patient.[facility] HospitalIn the event this information is protected by the Federal Confidentiality of Alcohol and Drug Abuse Patient Records regulations: The Federal rules restrict any use of the information to criminally investigate or prosecute any alcohol or drug abuse patient.[facility] HospitalIn the event this information is protected by the Federal Confidentiality of Alcohol and Drug Abuse Patient Records regulations: The Federal rules restrict any use of the information to criminally investigate or prosecute any alcohol or drug abuse patient.[facility] HospitalIn the event this information is protected by the Federal Confidentiality of Alcohol and Drug Abuse Patient Records regulations: The Federal rules restrict any use of the information to criminally investigate or prosecute any alcohol or drug abuse patient.[facility] HospitalIn the event this information is protected by the Federal Confidentiality of Alcohol and Drug Abuse Patient Records regulations: The Federal rules restrict any use of the information to criminally investigate or prosecute any alcohol or drug abuse patient.[facility] HospitalIn the event this information is protected by the Federal Confidentiality of Alcohol and Drug Abuse Patient Records regulations: The Federal rules restrict any use of the information to criminally investigate or prosecute any alcohol or drug abuse patient.[facility] HospitalIn the event this information is protected by the Federal Confidentiality of Alcohol and Drug Abuse Patient Records regulations: The Federal rules restrict any use of the information to criminally investigate or prosecute any alcohol or drug abuse patient.[facility] HospitalIn the event this information is protected by the Federal Confidentiality of Alcohol and Drug Abuse Patient Records regulations: The Federal rules restrict any use of the information to criminally investigate or prosecute any alcohol or drug abuse patient.[facility] HospitalIn the event this information is protected by the Federal Confidentiality of Alcohol and Drug Abuse Patient Records regulations: The Federal rules restrict any use of the information to criminally investigate or prosecute any alcohol or drug abuse patient.[facility] HospitalIn the event this information is protected by the Federal Confidentiality of Alcohol and Drug Abuse Patient Records regulations: The Federal rules restrict any use of the information to criminally investigate or prosecute any alcohol or drug abuse patient.[facility] FOR RECORDS PERTAINING TO PATIENTS WHO [...] BE BASED ON THE PRIMARY CLINICAL RECORDS. [facility] [employer] [facility]. provides no warranty or guarantee of the accuracy or completeness of information in this document.
== END 2025-10-01 08:39 | disposition home or self-care (01) ==
PROVIDERS: PCP Nurse Practitioner Family; Visit Provider Nurse Practitioner Family
DX: M54.30 Sciatica, unspecified side (principal); M51.369 Other intervertebral disc degeneration, lumbar region without mention of lumbar back pain or lower extremity pain
CPT/HCPCS: 72148

== ENCOUNTER 2025-10-20 14:56 | Emergency (ER) | payer BC, SELFPAY ==
--- OUTSIDE RECORDS SUMMARY | 2024-08-30 09:15 | XMS_ITS ---
Author Organization [facility] es Address [address] [place] [address] Care Team Providers Care Poultry Field Service Technician Name Role Phone Erinjohnathan Reinaldo Primary Care Provider Lizzette Jones Unavailable Katrin Duran Unavailable [phone] REASON FOR VISIT PROPHY Encounters Encounter Location Date Provider Diagnosis [place] [address] [place] [address] 08/30/2024 Katrin Duran Plan Of Treatment Next Appt Details Provider Name:Tina Carrasco, 01/13/2026 08:30:00 AM, [address] [place], [address], Provider Name:Tina Carrasco, 01/20/2026 09:30:00 AM, [address] [place], [address], Provider Name:Ly Grace, 02/21/2026 08:30:00 AM, [facility] [place], [address], Progress Notes * YEFRI ROCHE:1990 ([age] yo F)Acc No.[id number]:08/30/2024 Patient:?NOEL ROCHE :?Katrin Acosta:1990???Age:34 Y???Sex: FemaleDate:08/30/2024hone:[phone]:[address], [id number]:Reinaldo Burns Subjective: * Chief Complaints: * P ROPHY * Electronic signature of Katrin Duran on 10/20/2025 at 04:19 PM ESTSign off status: Pending * Provider: Rogers Chandler Date: 1 Generated for Printing/Faxing/eTransmitting on:?10/20/2025 04:19 PM EST
--- OUTSIDE RECORDS SUMMARY | 2024-12-21 09:30 | XMS_ITS ---
Author Organization [facility] es Address [address] [place] [address] Care Team Providers Care Health Services Manager Name Role Phone Josereinier Reinaldo Primary Care Provider Darin Jones Unavailable [phone] REASON FOR VISIT FILLING Encounters Encounter Location Date Provider Diagnosis [place] [address] [place] [address] 12/21/2024 Darin Montoya Plan Of Treatment Next Appt Details Provider Name:Tina Carrasco, 01/13/2026 08:30:00 AM, [address], [place], [address], Provider Name:Tina Carrasco, 01/20/2026 09:30:00 AM, [address], [place], [address], Provider Name:Ly Edwards, 02/21/2026 08:30:00 AM, [address], [place], [address], Progress Notes * HECTOR ROCHEB:1990 ([age] yo F)Acc No.[id number]:12/21/2024 Patient:?NOEL ROCHE :?DARIN MONTOYA DDSDOB:1990???Age: 34 Y???Sex:FemaleDate:12/21/2024Phone:[phone]:[address] [place], [place] [address], [id number]:Reinaldo Burns Subjective: * Chief Complaints: * F ILLING Billing Information: * Procedure Codes: * Electronic signature of Darin Montoya DDS on 10/20/2025 at 04:20 PM ESTSign off status: Pending * Provider: Joseph MONTOYA DDS Date: 0 12/21/2024 Generated for Printing/Faxing/eTransmitting on:?10/20/2025 04:20 PM EST
--- OUTSIDE RECORDS SUMMARY | 2025-03-04 04:20 | XMS_ITS ---
Author Organization [facility] Address [address] [place] [address] Care Team Providers Care Wet End Supervisor Name Role Phone Gaurav Snyder [facility] [phone] REASON FOR VISIT right shoulder recheck - dos 11/05 Encounters Encounter Location Date Provider Diagnosis [facility] [facility] [address] [facility] [place] [address] 03/04/2025 Gaurav Snyder Plan Of Treatment No Information Progress Notes * IVAN ROCHEGABRIELB:1990 ([age] yo F)Acc No.[id number]:03/04/2025 Progress Notes Patient: NOEL PAZ :?FRANCESCO FaustOB:1990???Age:34 Y ???Sex:FemaleDate:03/04/2025Phone:[phone]:[address] [place], [place] [id number] Subjective: * Chief Complaints: * 1 . Right shoulder recheck - dos 11/05. * Medical History: Objective: * Vitals: Assessment: Plan: * Treatment: Forms: * Images: * Electronic signature of Gaurav Snyder MD on 10/20/2025 at 04:19 PM ESTSign off status: Pending * Provider: Spencer Snyder MD Date: 0 03/04/2025 Generated for Printing/Faxing/eTransmitting on:?10/20/2025 04:19 PM EST
--- OUTSIDE RECORDS SUMMARY | 2025-05-15 09:40 | XMS_ITS ---
Author Organization [facility] Address [address] [place] [address] Care Team Providers Care Trapper Bird Name Role Phone Erinjohnathan Reinaldo Primary Care Provider Lizzette Jones Unavailable Tina Carrasco Unavailable [phone] REASON FOR VISIT FILLING Encounters Encounter Location Date Provider Diagnosis [facility] [address] [place] [address] 05/15/2025 Tina Carrasco Plan Of Treatment Next Appt Details Provider Name:Tina Carrasco, 01/13/2026 08:30:00 AM, [address] [place], [address], Provider Name:Tina Carrasco, 01/20/2026 09:30:00 AM, [address] [place], [address], Provider Name:Ly Edwards, 02/21/2026 08:30:00 AM, [place], [address], Progress Notes * YEFRI ROCHE:1990 ([age] yo F)Acc No.[id number]:05/15/2025 Patient:?NOEL ROCHE :?Tina CarrascoDOB:1990???Age:34 Y???Sex: FemaleDate:05/15/2025Phone:[phone]:[address] [facility], [id number]:Reinaldo Burns Subjective: * Chief Complaints: * F ILLING * Electronic signature of Tina Carrasco , DMD on 10/20/2025 at 04:20 PM ESTSign off status: Pending * Provider: Rogers Carrasco Date: 0 05/15/2025 Generated for Printing/Faxing/eTransmitting on:?10/20/2025 04:20 PM EST
--- OUTSIDE RECORDS SUMMARY | 2025-08-29 11:30 | XMS_ITS ---
Author Organization [facility] es Address [address] [place] [address] Care Team Providers Care Writer Producer Name Role Phone Tracey Burnselvin Primary Care Provider Lizzette Jones Unavailable [phone] Dr. Peter Ascencio Unavailable [phone] REASON FOR VISIT FILLING Encounters Encounter Location Date Provider Diagnosis [facility] [address] [place] [address] 2024 Peter Ascencio Plan Of Treatment Next Appt Details Provider Name:Tina Antoineadelina, 01/13/2026 08:30:00 AM, [address] [place], [address], Provider Name:Tina Antoineadelina, 01/20/2026 09:30:00 AM, [address], [place], [address], Provider Name:Ly Edwards, 02/21/2026 08:30:00 AM, [address] [place], [address], Progress Notes * YEFRI ROCHE:1990 ([age] yo F)Acc No.[id number]:08/29/2025 Patient:?NOEL ROCHE :?Peter Ascencio DDSDOB:1990???Age:35 Y???Sex: FemaleDate:08/29/2025Phone:[phone]:[address] [place], [id number]:Reinaldo Burns Subjective: * Chief Complaints: * F ILLING * Electronic signature of Dr. Peter Ascencio , DMD, [id number] on 10/20/2025 at 04:20 PM ESTSign off status: Pending * Provider: Rogers Ascencio DDS Date: Generated for Printing/Faxing/eTransmitting on:?10/20/2025 04:20 PM EST
--- OUTSIDE RECORDS SUMMARY | 2025-08-30 11:30 | XMS_ITS ---
Author Organization [facility] Address [address] [place] [address] Care Team Providers Care Industrial Roof Plumber Name Role Phone Grant Reinaldo Primary Care Provider Lizzette Jones Unavailable Dr. Peter Ascencio Unavailable [phone] REASON FOR VISIT FILLING Encounters Encounter Location Date Provider Diagnosis [facility] [address] [place] [address] 08/30/2025 Peter Ascencio Plan Of Treatment Next Appt Details Provider Name:Tina Antoineadelina, 01/13/2026 08:30:00 AM, [address] [place], [address], Provider Name:Tina Antoineadelina, 01/20/2026 09:30:00 AM, [address], [address], Provider Name:Ly Charlaprosper, 02/21/2026 08:30:00 AM, [facility] [place], [address], Progress Notes * HECTOR ROCHEB:1990 ([age] yo F)Acc No.[id number]:08/30/2025 Patient:?NOEL ROCHE :?Peter Ascencio DDSDOB:1990???Age:35 Y???Sex: FemaleDate:08/30/2025Phone:[phone]:[address] [place], [id number]:Reinaldo Burns Subjective: * Chief Complaints: * F ILLING * Electronic signature of Dr. Peter Ascencio , DMD, [id number] on 10/20/2025 at 04:20 PM ESTSign off status: Pending * Provider: Rogers Ascencio DDS Date: Generated for Printing/Faxing/eTransmitting on:?10/20/2025 04:20 PM EST
--- OUTSIDE RECORDS SUMMARY | 2025-09-12 10:30 | XMS_ITS ---
Author Organization [facility] [place] Address [address] [place] [address] Care Team Providers Care Manager Database Name Role Phone Erinjohnathan Reinaldo Primary Care Provider Lizzette Jones Unavailable [phone] Mey Duong Unavailable [phone] REASON FOR VISIT 6 MONTH BW EX Encounters Encounter Location Date Provider Diagnosis [facility] [place] [address] [place] [address] 09/12/2025 Mey Duong Plan Of Treatment Next Appt Details Provider Name:Tina Carrasco, 01/13/2026 08:30:00 AM, [address] [place], [address], Provider Name:Tina Carrasco, 01/20/2026 09:30:00 AM, [place], [address], Provider Name:Ly Grace, 02/21/2026 08:30:00 AM, [place], [address], Progress Notes * YEFRI ROCHE:1990 ([age] yo F)Acc No.[id number]:09/12/2025 Patient:?NOEL ROCHE :?Mey DuongDOB:1990???Age:35 Y???Sex: FemaleDate:09/12/2025Phone:[phone]:[address] [facility] [id number]:Reinaldo Burns Subjective: * Chief Complaints: * 6 MONTH BW EX * Electronic signature of Meytia Duong on 10/20/2025 at 04:20 PM ESTSign off status: Pending * Provider: Magno Duong Date: 1 Generated for Printing/Faxing/eTransmitting on:?10/20/2025 04:20 PM EST
--- OUTSIDE RECORDS SUMMARY | 2025-10-07 11:15 | XMS_ITS ---
Author Organization [facility] [place] Address [address] [place] [address] Care Team Providers Care Bank Messenger Name Role Phone Monique Razo Primary Care Provider REASON FOR VISIT 3mon Encounters Encounter Location Date Provider Diagnosis [facility] [address] [place] [phone] 10/07/2025 Monique Razo Plan Of Treatment Next Appt Details Provider Name:Monique rutledge, 10/22/2025 04:15:00 PM, [address] [place], [address], Progress Notes * Kyung ROCHE LDOB:1990 (35 yo F)Acc No.[id number]:10/07/2025 UNLOCKED PROGRESS NOTE Progress Note Patient: Kevin PAZdominique Piedra :?Monique Razo ([facility]), CNPDOB:1990 ???Age:35 Y???Sex:FemaleDate:10/07/2025Phone:[phone]:[address] [place] [id number] Subjective: * Chief Complaints: * 1 . 3mon. * Medical History: Objective: * Vitals: Assessment: Plan: * Treatment: * * Electronic signature of Monique Razo NP, OPERATIONAL REVIEW [email or web address] on 10/20/2025 at 04:19 PM ESTSign off status: PendingVisit Status:?CANC (Cancelled) * Provider: Cristine Razo (LAURITA), SPINNER FIXER Date: 1 12/07/2024 Generated for Printing/Faxing/eTransmitting on:?10/20/2025 04:19 PM EST
[2025-10-20 15:09] VITALS: BP 138/88; PULSE 78; TEMP 36.8; O2SAT 97; BMI 60.5
--- NOTE | 2025-10-20 15:40 | ED.SOB1 ---
HPI - SOB/Dyspnea General Chief Complaint: Shortness of Breath/Dyspnea Stated Complaint: SOB COUGH Time Seen by Provider: 10/20/25 15:27 Source: patient (Patient presents emergency department stating she has a cough productive of green sputum that started yesterday. She complains of chills but denies fevers or sweats. She denies any sick contacts.) Mode of arrival: walk-in Limitations: no limitations History of Present Illness MD elicited complaint: cough Pertinent past history: diabetes Onset (ago): day(s) (1 day) Timing: intermittent Severity: mild Exacerbating factors: coughing Relieving factors: nothing Known history of: diabetes Associated symptoms: other (Chills) Treatment prior to arrival: none Related Data Home oxygen amount: none Home Medications ?Medication ?Instructions ?Recorded ?Confirmed cholecalciferol (vitamin D3) 125 125 mcg PO QAM 10/26/24 10/20/25 mcg (5,000 unit) tablet escitalopram oxalate 20 mg tablet 20 mg PO QAM 10/26/24 10/20/25 glipizide 5 mg tablet 5 mg PO QAM 10/26/24 10/20/25 metformin 500 mg tablet 500 mg PO BID 10/26/24 10/20/25 trazodone 100 mg tablet 100 mg PO QPM PRN sleep 10/26/24 10/20/25 blood-glucose,retail consultant,cont 10/20/25 10/20/25 (Dexcom G7 Phlebotomy Director) ferrous sulfate 325 mg (65 mg mg 10/20/25 iron) tablet gabapentin 100 mg capsule mg 10/20/25 gabapentin 300 mg capsule mg 10/20/25 tirzepatide 5 mg/0.5 mL mg subcut 10/20/25 subcutaneous pen injector (Jacinto) Previous Rx's ?Medication ?Instructions ?Recorded amoxicillin 875 mg tablet 875 mg PO Q12H #20 tabs 10/20/25 dextromethorphan-guaifenesin 30 1 tab PO BID #30 tabs 10/20/25 mg-600 mg tablet extended [id number] hr Allergies Allergy/AdvReac Type Severity Reaction Status Date / Time Sulfa (Sulfonamide Allergy Severe Hives Verified 10/20/25 15:15 Antibiotics) Review of Systems ROS Constitutional Reports: chills PFSH PFSH Medical History Arthritis of right acromioclavicular joint ?M19.011 - Primary osteoarthritis, right shoulder (ICD-10) Acromioclavicular joint arthritis ?M19.019 - Primary osteoarthritis, unspecified shoulder (ICD-10) Accessory navicular bone of both feet ?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.2 - Other congenital malformations of lower limb(s), including pelvic girdle (ICD-10) Navicular fracture of ankle ?S92.253A - Displaced fracture of navicular [scaphoid] of unspecified foot, initial encounter for closed fracture (ICD-10) Osteoarthritis ?M19.90 - Unspecified osteoarthritis, unspecified site (ICD-10) Insomnia ?G47.00 - Insomnia, unspecified (ICD-10) Anxiety ?F41.9 - Anxiety disorder, unspecified (ICD-10) Restless leg ?G25.81 - Restless legs syndrome (ICD-10) GERD (gastroesophageal reflux disease) ?K21.9 - Gastro-esophageal reflux disease without esophagitis (ICD-10) Diabetes ?E11.9 - Type 2 diabetes mellitus without complications (ICD-10) Surgical History History of cholecystectomy ?Z90.49 - Acquired absence of other specified parts of digestive tract (ICD-10) Family History Other Family history of COPD (chronic obstructive pulmonary disease) Family history of coronary artery disease Family history of diabetes mellitus Family history of seizures Social History Within the past year, how often did you have a drink containing alcohol: never Score interpretation: A score less than 3 is consistent with normal alcohol consumption. 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 Highest level of school completed/degree received: high school graduate Little interest or pleasure in doing things: not at all Feeling down, depressed, or hopeless: not at all Exam Constitutional Vital Signs, click to edit/add: Last Vital Signs Temp 98.3 F 10/20/25 15:09 Pulse 78 10/20/25 15:09 Resp 18 10/20/25 15:09 BP 138/88 10/20/25 15:09 Pulse Ox 97 10/20/25 15:09 O2 Del Method Room Air 10/20/25 15:09 Documenting provider has reviewed patient's vital signs: yes Common normals: no apparent distress, oriented x3, healthy appearing, alert and well nourished (Obese) General appearance: cooperative, comfortable and well developed Nutritional appearance: obese morbidly obese Orientation/consciousness: Yes awake, Yes oriented to person, Yes oriented to place and Yes oriented to time HENWI Common normals: normocephalic, head/scalp atraumatic, external ears normal, EACs normal, TMs normal bilaterally, external nose normal, nasal mucous membranes and turbinates normal, moist oral mucous membranes, oropharynx normal, dentition normal and gingiva normal Head and scalp: normal to inspection, normocephalic and atraumatic Face and sinus: normal facial exam Nose: external nose normal, nares normal and no nasal discharge External ear: external ears normal External auditory canal: EACs normal Tympanic membrane: TMs normal bilaterally Mouth: oral and palatal mucosa normal Throat: posterior oropharynx normal Eye Common normals: PERRL General eye: normal appearance of both eyes Visual acuity: acuity normal Eyelid: eyelids normal Conjunctiva: conjunctiva(e) normal Sclera: sclerae normal Cornea: corneas normal Pupil: PERRL Neck & C-Spine Common normals: full ROM General: normal visual inspection Lymph Lymphatic: no lymphadenopathy noted and no lymphedema noted Chest Common normals: inspection of chest normal Respiratory Common normals: normal respiratory effort Effort & inspection: able to speak in complete sentences Auscultation: clear to auscultation bilaterally Cardio Common normals: no JVD, regular rhythm, S1 normal heart sound, S2 normal heart sound, no gallops, no clicks, no murmurs and no rub Palpation: normal PMI Rate: regular rate Rhythm: regular rhythm Heart sounds: S1 normal and S2 normal GI Common normals: Normal to inspection, nondistended, normoactive bowel sounds present, soft to palpation, non-tender, no hepatosplenomegaly, no masses and no bruits Inspection: normal to inspection and central obesity Auscultation: normoactive bowel sounds Palpation: soft and no hepatosplenomegaly Rectal Exam - Female: deferred Extremity Common normals: normal to inspection and full ROM Neuro Common normals: oriented x3, CN's II-XII intact bilaterally, moves all extremities and no focal motor deficits Speech: speech normal Gait (neuro): normal gait Psych Appearance: grossly normal and well kempt Attitude: calm and engaged Activity/motor behavior: appropriate eye contact Speech: normal speech Mood and affect: euthymic mood Thought process: normal thought process Thought content: normal thought content Attention/concentration: attention grossly intact Memory/cognition: memory grossly intact Insight: insight good Judgement: judgment good Course Course Hospital Course: Patient is given a dose of dextromethorphan/guaifenesin. Upon reevaluation, she has a more productive cough. She feels like things are starting to loosen up. I discussed the results of the workup with the patient and her son. I discussed the discharge diagnosis, plan of care, home-going prescriptions. The patient already has a follow-up appointment with her primary care physician this coming week. The patient will be discharged to home in stable condition. She is to return to the emergency department for any further problems or concerns. The patient and her son were in agreement with the plan of care. Vital Signs Vital signs: Vital Signs Temperature 98.3 F 10/20/25 15:09 Pulse Rate 78 10/20/25 15:09 Respiratory Rate 18 10/20/25 15:09 Blood Pressure 138/88 10/20/25 15:09 Pulse Oximetry 97 10/20/25 15:09 Oxygen Delivery Method Room Air 10/20/25 15:09 Temperature 98.3 F 10/20/25 15:09 Pulse Rate 78 10/20/25 15:09 Respiratory Rate 18 10/20/25 15:09 Blood Pressure 138/88 10/20/25 15:09 Pulse Oximetry 97 10/20/25 15:09 Oxygen Delivery Method Room Air 10/20/25 15:09 MDM - SOB/Dyspnea MDM Narrative Medical decision making narrative: Patient was interviewed and examined. The appropriate ER workup was initiated. Patient was given a dose of dextromethorphan/guaifenesin. Upon reevaluation, she has a more productive cough. I discussed the results of the workup with her. I discussed the discharge diagnosis, plan of care, home-going instructions and prescriptions. The patient was in agreement with the plan of care. She will follow-up with her primary care physician. The patient will be discharged to home in stable condition. She is to return to the emergency department for any further problems or concerns. Differential Diagnosis Differential diagnosis: Likely asthma with exacerbation (URI) and other (viral URI, strep pharyngitis, influenza, bacterial URI) Medical Records Attestation: I reviewed the patient's medical records. Lab Data Attestation: I reviewed the patient's lab results. Labs: Lab Results 10/20/25 Range/Units 15:47 Influenza Type A Ag Negative Influenza Type B Ag Negative Streptococcus Screen Negative Discharge Plan Discharge Chief Complaint: Shortness of Breath/Dyspnea Clinical Impression: Bacterial upper respiratory infection Patient Disposition: Home, Self-Care Time of Disposition Decision: 17:12 Condition: Good Mode of Transportation: Private Vehicle Prescriptions / Home Meds: New dextromethorphan-guaifenesin 30-600 mg tablet extended release 12 hr 1 tab PO BID Qty: 30 0RF amoxicillin 875 mg tablet 875 mg PO Q12H Qty: 20 0RF No Action ferrous sulfate 325 mg (65 mg iron) tablet gabapentin 300 mg capsule gabapentin 100 mg capsule (DME) Dexcom G7 Phlebotomy Director Misc MISCELLANEOUS Mounjaro 5 mg/0.5 mL pen injector SUBCUT cholecalciferol (vitamin D3) 125 mcg (5,000 unit) tablet 125 mcg PO QAM escitalopram oxalate 20 mg tablet 20 mg PO QAM glipizide 5 mg tablet 5 mg PO QAM trazodone 100 mg tablet 100 mg PO QPM PRN (Reason: sleep) metformin 500 mg tablet 500 mg PO BID Print Language: Indonesian Instructions: Upper Respiratory Infection (ED) Referrals: GUERRERO EMMANUEL [Primary Care Provider, Family Practice] - 1 week
--- OUTSIDE RECORDS SUMMARY | 2025-10-20 16:18 | XMS_ITS | CCD ---
Author Organization [facility] Care Team Providers Care Search Strategist Name Role Phone Monique Dudley Unavailable MONIQUE [...] Provider LORI Emmanuel Primary Care Provider [phone] MONIQUE EMMANUEL Primary Care Physician Pato Avelar [...] Emmanuel CNP S Primary Care Provider Lien LIBRARY CIRCULATION TECHNICIAN-C, Monique Vargas Primary Care Provider Marek Dennis DO Emergency Provider Neo Mclaughlin MD Admit Provider Neo Mclaughlin MD Attending Provider Maryanne Unger RN Other Provider Unavailable Balaji Cohen MD Other Provider Kvng Carcamo MD Other Provider [phone] Inge Adler MD Attending Provider Inge Adler MD Other Provider Merry Nieves APRN Other Provider [phone] Mitch Galaviz MD Other Provider Monique Emmanuel Primary Care Unavailable Neo Mclaughlin Admitting Unavailable Maryanne Unger Consulting Unavailable Mitch Galaviz Attending Unavailab le Maryanne Unger Consulting Unavailable Balaji Cohen Consulting Unavailable Kvng Carcamo Consulting [place] Adler, Inge Consulting Unavailable ArodaMerry Consulting Unavailable LIEN, MONIQUE S Primary Care [...] Attending Unavailab le ESPERANZASEAN Admitting Unavailab le ESPERANZASAEN Referring Unavailab le ESPERANZASEAN Attending Unavailab le LIEN, MONIQUE S Primary Care Unavailable SEAN MATA Referring Unavailab le LIEN, MONIQUE S Primary Care Unavailable SEAN MATA Attending Unavailab sera Garcia MD, Erich Barraza Primary Care Provider [phone] PATO AVELAR Attending Unavailable PATO AVELAR Attending Unavailable PATO AVELAR Attending Unavailable PATO AVELAR Referring Unavailable PATO AVELAR Attending Unavailable PATO AVELAR Attending Unavailable PATO AVELAR Attending Unavailable PATO AVELAR Attending Unavailable Allergies Allergy ClassificationReported Allergen(s)Allergy TypeDate of OnsetReaction(s) Facility (1 source)Egg proteinDrug allergyW[facility] Other (1 source)Sulf-10Drug allergyhiNortheast Regional Medical Center Vozeeme Other (1 source)Sulfonamides (Antibiotic)Drug allergy (disorder)48-71-0729[facility]Det[facility] (20 sources)Sulfonamides (Antibiotic); Translations: [SULFA (SULFONAMIDE ANTIBIOTICS)]Allergy to lgyekpozd74-79-1831IgfdtPremier Health [facility] (8 sources)Egg Derived; Translations: [Egg Derived]Allergy to substance 38-32-4914izeyyVaodjrugeProMedica Bay Park Hospital (5 sources)Sulfonamides (Antibiotic); Translations: [sulfa drugs]Drug allergy [facility] (20 sources)Sulfonamides (Antibiotic)Drug Bjceudz53-45-0041CzyfSamaritan Hospital Medications Current Medications MedicationDrug Class(es)DatesSig (Normalized)Sig (Original)acetaminophen 325 mg / HYDROcodone bitartrate 5 mg oral tablet (2 sources)Opioid AgonistStart: 08-30-2024 End: 68-18-0693xqjp 1 tablet by mouth every eight hours as needed for pain HYDROcodone-acetaminophen ([place]) 5-325 MG tablet Indications: Pain Take 1 tablet by mouth every 8 (eight) hours if needed for moderate pain (PRN pain) for up to 5 days 15 tablet 08/30/2024 09/04/2024 Activeacetaminophen 325 mg / oxyCODONE hydrochloride 5 mg oral tablet (20 sources)Opioid AgonistStart: 12-31-2024 End: 15-37-2950dpri 1 tablet by mouth every six hours as needed for pain oxyCODONE-acetaminophen (PERCOCET) 5-325 mg tablet Indications: Accessory navicular bone of right foot , Post-op pain Take 1 tablet by mouth every 6 hours as needed for pain for up to 5 days. 20 tablet 12/31/2024 01/05/2025 Active Start: 10-24-2024 End: 95-07-4133ajqq 1 tablet by mouth every eight hours for painoxyCODONE- acetaminophen (Percocet) 5-325 MG tablet Indications: Pain Take 1 tablet by mouth every 8(eight) hours if needed for severe pain for up to 5 days 15 tablet 10/24/2024 10/29/2024 ActiveStart: 09-07-2024 End: 21-14-8450rgud 1 tablet by mouth every eight hours for painoxyCODONE- acetaminophen (Percocet) 5-325 MG tablet Indications: Pain Take 1 tablet by mouth every 8(eight) hours if needed for severe pain for up to 5 days 15 tablet 09/07/2024 09/12/2024 ActiveBlood-Glucose Sensor (Dexcom G7 Sensor) device (4 sources)Start: 81-07-6333Oimzt-Glucose Sensor (Dexcom G7 Sensor) device Active EACH .ROUTE .MEDSUPPLY February 05, 2025 12:00am As directedBlood- Glucose Transmitter (Dexcom G6 Transmitter) device (4 sources)Start: 20-62-9664Rfnru-Glucose Transmitter (Dexcom G6 Transmitter) device Active EACH .ROUTE .MEDSUPPLY February 05, 2025 12:00am As directed cholecalciferol 0.125 mg oral tablet (20 sources)Vitamin DStart: 96-68-5193rhwygjucrvwnxuz (Vitamin D-3) 125 MCG (5000 UT) tablet 1 (one) time each day at the same time 01/30/2024 Activetake 1 tablet by mouth once dailycholecalciferol (VITAMIN D3) 5,000 unit tab Take 5,000 Units by mouth once daily. ActiveDEXCOM G6 TRANSMITTER eduin (20 sources)Start: 15-33-9586FNPNNM G6 TRANSMITTER eduin as directed. 09/03/2024 ActiveDEXCOM G7 RADIATION PROTECTION ENGINEER misc (20 sources)Start: 09-15-9741LFXMFP G7 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 09/20/2024 ActiveDEXCOM G7 SENSOR eduin (20 sources)Start: 16-50-9606LAJKQB G7 SENSOR eduin 12/12/2024 Activeescitalopram 20 mg oral tablet (20 sources)Serotonin Reuptake InhibitorStart: 24-38-9224echw 1 tablet by mouth once dailyEscitalopram Oxalate 20 mg tablet Active 20 MG PO Daily June 15, 2025 12:00am Complies with drug therapyStart: 04-25-2024 End: 75-02-2289caxx 1 tablet by mouth once dailyEscitalopram Oxalate 20 mg tablet Discontinued 20 MG PO Daily May 16, 2024 12:00am February 05, 2025 4:47pmStart: 49-98-4373Mtercbk 10 MG tablet 1 (one) time each day at the same time 03/12/2024 Activetake 0.5 tablet by mouth once daily, then take 1 tablet by mouth once dailyescitalopram oxalate (LEXAPRO) 20 mg tablet TAKE 1/2 TABLET BY MOUTH ONCE A DAY FOR 1 WEEK THEN 1 TABLET ONCE A DAY Activeferrous sulfate 325 mg oral tablet (3 sources)Start: 78-25-4619male 1 tablet by mouth three times weeklyFerrous Sulfate 325 mg (65 mg iron) tablet Active 325 MG PO .three times a week June 15, 2025 12:00am Complies with drug therapyglipiZIDE 5 mg oral tablet (20 sources)SulfonylureaStart: 09-53-5498jgpp 1 tablet by mouth once daily Glipizide 5 mg tablet Active 5 MG PO Daily February 05, 2025 12:00am Complies with drug therapyketorolac tromethamine 10 mg oral tablet (20 sources)Nonsteroidal Anti-inflammatory Drug, Cyclooxygenase InhibitorStart: 00-15-7606zusl 1 tablet by mouth every six hours as neededkeTORolac (TORADOL) 10 mg tablet Take 1 tablet by mouth every 6 hours as needed. with food. 20 tablet 01/02/2025 ActivemetFORMIN hydrochloride 500 mg oral tablet (20 sources)BiguanideStart: 01-54-4368ozuRCGTBT (Glucophage) 500 MG tablet 1 (one) time each day at the same time 05/23/2023 ActiveStart: 32-54-2814kviw 1 tablet by mouth twice dailyMetformin 500 mg tablet Active 500 MG PO Twice daily February 27, 2024 12:00am Complies with drug therapymethylPREDNISolone (10 sources)CorticosteroidStart: 43-84-3561fxsqzoLTKRBWCpwlof (Medrol Dospak) 4 MG tablets Indications: Capsulitis of metatarsophalangeal (MTP) joint of right foot Follow schedule on MEDROL PACK package instructions to be used as directed 21 tablet 09/05/2025 ActiveStart: 03-07-2025 End: 97-24-7473pygmyxYOWDWUQqlrtu (Medrol Dospak) 4 MG tablets Indications: Capsulitis of metatarsophalangeal (MTP) joint of right foot Follow schedule on MEDROL PACK package instructions to be used as directed 21 tablet 03/07/2025 09/05/2025 Discontinued (Therapy completed)Start: 42-56-1388qeuulnPMHXGQMslext (Medrol Dospak) 4 MG tablets Indications: Capsulitis of metatarsophalangeal (MTP) joint of right foot Follow schedule on MEDROL PACK package instructions to be used as directed 21 tablet 03/07/2025 Activeomeprazole 20 mg delayed release oral capsule (20 sources)Proton Pump InhibitorStart: 05-96-4537skau 1 capsule by mouth once dailyOmeprazole 20 mg capsule,delayed release(DR/EC) Active 20 MG PO Daily February 27, 2024 12:00am Complies with drug therapypromethazine hydrochloride 12.5 mg oral tablet (4 sources)PhenothiazineStart: 12-31-2024 End: 54-62-3061tmie 1 tablet by mouth every eight hours as neededpromethazine (PHENERGAN) 12.5 mg tablet Indications: Accessory navicular bone of right foot , Post-op pain Take 1 tablet by mouth every 8 hours as needed for up to 10 days. 30 tablet 12/31/2024 01/10/2025 ActiveTirzepatide (1 source)Start: 90-95-1326Knkrgqrfbwi (Mounjaro) 2.5 mg/0.5 mL pen injector Active 2.5 MG SUBCUT every week July 082:00am Complies with drug therapytraZODone hydrochloride 100 mg oral tablet (20 sources)Serotonin Reuptake InhibitorStart: 07-37-2911bodz 1 tablet by mouth once daily at bedtimeTrazodone 100 mg tablet Active 100 MG PO Daily at bedtime February 05, 2025 12:00am Complies with drug therapyStart: 38-28-4454ddvn 100 mg by mouth once daily at bedtimeTrazodone Active 100 MG PO Daily at bedtime May 16, 2024 12:00amStart: 04-25-2024 End: 88-23-1470wlmr 2 tablets by mouth once daily at bedtimeTrazodone 50 mg tablet Discontinued 100 MG PO Daily at bedtime May 16, 2024 12:00am February 05, 2025 4:46pmStart: 88-36-1711jaxRZNzma (Desyrel) 50 MG tablet 1 (one) time each day at the same time 03/12/2024 ActiveUniversal Sling (3 sources)Start: 85-92-0051Ghjwenprq Sling Active 0 .Route 1 February 27, 2024 12:00am As directedUniversal Sling unit (4 sources)Start: 35-97-8358Wetklwfbo Sling unit Active 0 .Route 1 February 27, 2024 12:00am As directedVitamin D (3 sources)Start: 77-75-4675Igvbugt D Oral, Daily, Refills(s) 0, Prophylaxis Start Date: 04/25/24 Status: Ordered Completed/Discontinued Medications MedicationDrug Class(es)DatesSig (Normalized)Sig (Original)amoxicillin 875 mg / clavulanate 125 mg oral tablet (4 sources)Penicillin-class AntibacterialStart: 02-05-2025 End: 37-29-8764tika 1 tablet by mouth every twelve hoursAmoxicillin-Pot Clavulanate 875-125 mg tablet Discontinued 1 TAB PO Every 12 hours 20 February 05, 2025 12:00am June 15, 2025 2:24amaspirin 325 mg oral tablet (20 sources)Platelet Aggregation Inhibitor, Nonsteroidal Anti-inflammatory Drug Start: 12-31-2024 End: 01-51-9610Rnwmohw 325 mg tablet Discontinued MG PO February 05, 2025 12:00am June 15, 2025 2:24am30 ml bupivacaine hydrochloride 5 mg/ml injection (2 sources)Amide Local AnestheticStart: 04-25-2025 End: 16-74-7944VHOdtwulcci (PF) 0.5 % (5 mg/mL) 1 mL injectionStart: 04-25-2025 End: mL, Injection - FOR ORTHO USE ONLY, ONCE, 1 dose, Starting on Nadya 04/25/25 at 1411, Until Nadya 04/25/25 at 1411celecoxib 200 mg oral capsule (4 sources)Nonsteroidal Anti-inflammatory DrugStart: 02-05-2025 End: 16-92-1766Slbumpmdy 200 mg capsule Discontinued MG PO February 05, 2025 12:00am June 15, 2025 2:24amphentermine hydrochloride 37.5 mg oral tablet (3 sources)Sympathomimetic Amine AnorecticStart: 06-15-2025 End: 76-56-1917iemp 1 tablet by mouth once dailyPhentermine 37.5 mg tablet Discontinued 37.5 MG PO Daily June 15, 2025 12:00am June 16, 2025 12:28pm triamcinolone acetonide 10 mg/ml injectable suspension (2 sources)CorticosteroidStart: 04-25-2025 End: 18-43-7448thpzsmiqdzcqs acetonide 10 mg injection (KeNALog 10)Start: 04-25-2025 End: 45-39-697961 mg, Injection - FOR ORTHO USE ONLY, ONCE, 1 dose, Starting on Nadya 04/25/25 at 1411, Until Nadya 04/25/25 at 1411 Problems Active Problems Problem ClassificationProblemDateDocumented DateEpisodic/ChronicAnxiety disorders (20 sources)Anxiety; Translations: [Anxiety disorder, unspecified]Onset: 456218-39-9153JjjlgzlKokprykp mellitus without complication (20 sources)Type 2 diabetes mellitus without complications; Translations: [Diabetes mellitus]Onset: 79-70-4594PnewsnkIpimfanin of lipid metabolism (4 sources)Pure hyperglyceridemia; Translations: [PURE HYPERGLYCERIDEMIA]Onset: 71-28-6670WfwtohpIuylezdgvg disorders (20 sources)Gastroesophageal reflux disease; Translations: [Gastro-esophageal reflux disease without esophagitis]Onset: 764630-80-3110XqfeiugMqeyyyir of lower limb (4 sources)Stress fracture of right foot; Translations: [Stress fracture, right foot, initial encounter for fracture]52-29-0946TwzinnjrRjmnrnyjdzr chest pain (7 sources)Chest pain; Translations: [Chest pain, unspecified]Onset: 06-15-2025 60-36-7963AeuqhhbxFxfualmgkto deficiencies (20 sources)Vitamin D deficiency, unspecified; Translations: [Vitamin D deficiency]Onset: 769101-97-7938GemvpkpGcvnmxszwrerus (20 sources)Arthritis of right acromioclavicular joint; Translations: [Primary osteoarthritis, right shoulder]Onset: 247276-69-7993VrodrzeKopmw acquired deformities (2 sources)Contracture of joint of left ankle; Translations: [Contracture, left ankle]55-50-3810WzllktzItezn acquired deformities (10 sources)Contracture of joint of right ankle; Translations: [Contracture, right ankle]54-90-6989EchquawQvzza congenital anomalies (20 sources)Accessory right tarsal navicular bone; 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), including pelvic girdle]08-27-2024 ChronicOther congenital anomalies (3 sources)Accessory left tarsal navicular bone; 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), including pelvic girdle]67-62-2838HkuffbbVbjys congenital anomalies (3 sources)Other congenital malformations of lower limb(s), including pelvic girdle; 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), including pelvic girdle]Onset: 32-83-8652DknjjjlNjzgh connective tissue disease (2 sources)Calcaneal spur of left foot; Translations: [Calcaneal spur, left foot]42-60-0878VgutfhfjOfccr connective tissue disease (2 sources)Plantar fasciitis; Translations: [Plantar fascial fibromatosis] 12-34-0455OlzkcxmhWmjij connective tissue disease (6 sources)Tendinitis of right posterior tibial tendon; Translations: [Posterior tibial tendinitis, right leg]56-77-6027XdywqqdhGnsva connective tissue disease (2 sources)Posterior tibial tendinitis, right leg; Translations: [Posterior tibial tendinitis, right leg]Onset: 18-50-1092LlfylwfqBrugf connective tissue disease (1 source)Pain in right foot; Translations: [Pain in right foot]12-12-2024 EpisodicOther connective tissue disease (6 sources)Capsulitis of metatarsophalangeal joint of right foot; Translations: [Other enthesopathy of right foot and ankle]42-63-5033VuwvutbvBojpf nervous system disorders (1 source)Other chronic pain; Translations: [Chronic pain of right ankle]Onset: 84-23-9060FdspuouHagkx non-traumatic joint disorders (1 source)Sinus tarsi syndrome of right ankle; Translations: [Pain in right ankle and joints of right foot]80-05-1190BuqatzkaFhmqg non-traumatic joint disorders (5 sources)Chronic ankle pain; Translations: [Pain in right ankle and joints of right foot]13-27-5187TpivbzvaXuidf nutritional; endocrine; and metabolic disorders (20 sources)Morbid obesity; Translations: [Body mass index (BMI) 60.0-69.9, adult]Onset: 389133-68-3105VuugkimSsykk nutritional; endocrine; and metabolic disorders (2 sources)Body mass index 40+ - severely obese; Translations: [Morbid (severe) obesity due to excess calories]51-85-4566FomanaoHgclm nutritional; endocrine; and metabolic disorders (1 source)Morbid (severe) obesity due to excess calories; Translations: [Morbid (severe) obesity due to excess calories]Onset: 56-46-7634QaynhveApexx nutritional; endocrine; and metabolic disorders (1 source)Body mass index (BMI) 60.0-69.9, adult; Translations: [Body mass index [BMI] 60.0-69.9, adult]Onset: 36-29-2084VafehwyVoody upper respiratory disease (1 source)Allergic rhinitis due to pollen; Translations: [Allergic rhinitis due to pollen]ChronicOther upper respiratory disease (2 sources)Chronic rhinitis; Translations: [Chronic rhinitis]22-97-8537Klgaron Other upper respiratory infections (4 sources)Chronic sinusitis, unspecified; Translations: [CHRONIC SINUSITIS UNSPECIFIED]Onset: 62-56-2949XdpnolsFsnnlovmxc disorders (not diabetes) (3 sources)Daczsjfyblgg39-74-9347RtjvbdehBgzaphvf codes; unclassified (20 sources)Obstructive sleep apnea syndrome; Translations: [Obstructive sleep apnea (adult) (pediatric)]Onset: 013745-49-6569TimtosiEetqegbo codes; unclassified (1 source)Obstructive sleep apnea (adult) (pediatric); Translations: [Obstructive sleep apnea (adult) (pediatric)]Onset: 15-91-6636PmqauzsYzkotqiw codes; unclassified (2 sources)Pain; Translations: [Pain, unspecified]54-65-9481EgpvvhadOldxtgas codes; unclassified (14 sources)History of operative procedure on foot; Translations: [Other specified postprocedural states]14-20-5542XhpqldbiYgxp and subcutaneous tissue infections (3 sources)Onychia of finger; Translations: [Cellulitis of right finger] 84-44-1086MqwhaqxcMigerzabuzvu (1 source)CONTACT W/AND (SUSP) EXPOS COVID-19; Translations: [CONTACT W/AND (SUSP) EXPOS COVID-19]Onset: 83-34-0084Pcduiblbccyc (4 sources)Call office on Tuesday to schedule follow-up with Cardiology. Unclassified (2 sources)Call office on Tuesday to schedule follow-up with your Primary Care Provider within 3-5 days of discharge. Past or Other Problems Problem ClassificationProblemDateDocumented DateEpisodic/ChronicAbdominal pain (4 sources)Lower abdominal pain, unspecified; Translations: [Unspecified abdominal pain]Onset: 94-16-9348JdaxwtycUvcmuybbtpruya/social admission (1 source)Dietary counseling and surveillance; Translations: [DIETARY COUNSELING AND SURVEILLANCE]Onset: 92-27-5511YpnfhoilRelehxyvg of teeth and jaw (2 sources)Pain of left temporomandibular joint; Translations: [Arthralgia of left temporomandibular joint]79-41-1103CphxluqfYwxpgo and vomiting (1 source)Nausea; Translations: [NAUSEA]Onset: 93-24-0638FmvjtnhlGkypd connective tissue disease (1 source)Pain in right finger(s)Onset: 03-22-2022 Resolved: 57-44-8565FetnvsnvOsuzk connective tissue disease (3 sources)Pain in right foot; Translations: [Pain in right foot]Onset: 09-21-3727WbbiyjdeRfund ear and sense organ disorders (2 sources)Otalgia, left ear; Translations: [Otalgia, unspecified]07-26-2024 EpisodicOther ear and sense organ disorders (2 sources)Ear sensations - finding; Translations: [Other specified disorders of left ear]78-97-9528ZmadmgeiVxvha nervous system disorders (1 source)Other acute postprocedural pain; Translations: [Post-op pain]Onset: 13-06-0816GspjoscrHvawn non-traumatic joint disorders (2 sources)Pain in right ankle and joints of right foot; Translations: [Chronic pain of right ankle]Onset: 34-06-9521ZeehzedpIijzzhba codes; unclassified (1 source)Other specified postprocedural states; Translations: [S/P foot surgery, right]Onset: 08-91-9584HbazhhdqKoogwtxh codes; unclassified (1 source)Pain, unspecified; Translations: [Pain]Onset: 12-56-2166Ptslhwgp Spondylosis; intervertebral disc disorders; other back problems (4 sources)Sciatica, right side; Translations: [SCIATICA RIGHT SIDE]Onset: 21-81-8001YsdvzwvxPzqwpax and strains (1 source)Unspecified sprain of right ring finger, initial encounterOnset: 03-22-2022 Resolved: 43-78-9738LaafedfkJldrhhyjigpq (6 sources)Stress fracture of right mauz09-97-9943Ingguisyutqr (8 sources)History of operative procedure on lbyj33-42-9841 Results Test NameValueInterpretationReference RangeFacilityCNOVon 81-68-6944ODQNRywgfe Visit (RAYMONDORRM) NOEL PAUL ([id number]) 1990 F [place] Date Time Provider Department 09/03/25 8:30 AM SEAN MATA During your visit today, we recorded the following information about you: Sean Mata DPM 09/03/2025 8:56 AM Signed PRIMARY SERVICE: [facility] Podiatry SUBJECTIVE: Patient is seen today with [...] tablet by mouth once daily. 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 DEXCOM G7 SENSOR eduin [...] by mouth once daily. - DEXCOM G7 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 - DEXCOM G7 SENSOR [...] [F41.9] 07/21/2024 Diabetes mellitus (more content not included)...[facility] PE protocolon 55-87-7969PL angio chest PE protocolLANCASTER M[facility] [address] CT Scan Report Signed Patient: Noel Paul MR#: [id number] : 1990 Acct:[id number] Age/Sex: 34 / F ADM Date: 06/15/25 Loc: Room: [address] [place] [address] Type: ADM INOo Attending Dr: Mitch Galaviz [...] Prince M.D. 06/16/2025 12:11 PM Dictation Location: [place] [address] Transcribed By: [facility] 06/16/25 1211 Dictated By: Joshua Prince MD 06/16/25 1208 Signed By: 06/16/25 1211[facility] Physician GroupECG 12 lead ECGon 23-40-1071IDG 12 lead ECGLANCASTER MUNICIPAL HOSP[facility] [place] [address] [place] [address] Electrocardiograph Report Signed Patient: Noel Paul MR#: [id number] : 1990 Acct:[id number] Age/Sex: 34 / F ADM Date: 06/15/25 Loc: Room: [address] [place] [address] Type: ADM INOo Attending Dr: Mitch Galaviz [...] rhythm Normal ECG Confirmed by Inge Adler ([id number]) on 06/16/2025 10:58:02 AM Referred By: Electronically Signed By: Inge Adler Transcribed By: MUS Signed By Inge Adler MD 5 1058[facility] Physician GroupGlucose Poct Glucometerson 06-16-2025 Glucose [Mass/Vol]106 mg/dLBaptist Health Doctors Hospital Physician GroupComment on above: Result Comment: Random Glucose Reference Range is dependent on time and content of last meal. Glucose of more than 200 mg/dL in a nonstressed, ambulatory subject supports the diagnosis of Diabetes Mellitus. PERFORMED BY: [address] [address] PATHOLOGIST BINDER OPERATOR CHANEL ROMERO M.D.Performed By: #### GLULS #### Point of Care testing ,Kmhubef4Fpx1: Cleaned MeterNoAtrium Health [facility] Physician GroupComment on above: Result Comment: PERFORMED BY: [address] [address] PATHOLOGIST BINDER OPERATOR CHANEL ROMERO M.D.Performed By: #### GLULS #### Point of Care testing ,Glucose [Mass/Vol]124 mg/dLBaptist Health Doctors Hospital Physician GroupComment on above: Result Comment: Random Glucose Reference Range is dependent on time and content of last meal. Glucose of more than 200 mg/dL in a nonstressed, ambulatory subject supports the diagnosis of Diabetes Mellitus.Performed By: #### GLULS #### Point of Care testing ,Zhyugdz7Hvg4: Cleaned MeterNoAt[facility] Physician GroupComment on above: Result Comment: PERFORMED BY: [place] [address] PATHOLOGIST BINDER OPERATOR CHANEL ROMERO M.D.Performed By: #### GLULS #### Point of Care testing ,Glucose [Mass/Vol]125 mg/dLBaptist Health Doctors Hospital Physician GroupComment on above: Result Comment: Random Glucose Reference Range is dependent on time and content of last meal. Glucose of more than 200 mg/dL in a nonstressed, ambulatory subject supports the diagnosis of Diabetes Mellitus.Performed By: #### GLULS #### Point of Care testing ,Troponin I High Sensitivityon 06-06-9714Rdbsbxnx I High Dufvtqdhdab4Brgiem2-07 [facility] Physician GroupComment on above:Result Comment: The Troponin units of report have been changed to meet the Chest Pain Accreditation requirement, element EC5.M1l2. Troponin units are changed from pg/ml to ng/L. Also, the decimal is removed and results are in whole numbers. PERFORMED BY: [place] [address] PATHOLOGIST BINDER OPERATOR CHANEL ROMERO M.D.Performed By: #### GLULS #### Point of Care testing ,A1C with Estimated Average Gluon 44-39-6173Bzberfm [Mass/Vol]137 mg/dLBaptist Health Doctors Hospital Physician GroupComment on above:Result Comment: PERFORMED BY: [place] [address] PATHOLOGIST BINDER OPERATOR CHANEL ROMERO M.D.Performed By: #### HS TROP #### [place] [address] YSUJsD5o (Bld) [Mass fraction]6.4 %High4.3-5.6[facility] Physician GroupComment on above:Result Comment: Increased risk for diabetes: 5.7 - 6.4 diabetes: >6.4 glycemic control for adults with diabetes: <7.0Performed By: #### HS TROP #### [facility] [address] [place] [address] USABasic Metabolic Panelon 76-33-3957Kckrp gap [Moles/Vol] 10.1 mmol/LNormal6.0-15.0[facility] Physician GroupComment on above:Performed By: #### HS TROP #### [facility] [address] [place] [address] USACalcium [Mass/Vol]8.7 mg/dLNormal8.6-10.3[facility] Physician GroupComment on above:Performed By: #### HS TROP #### [facility] [address] [place] [address] USAChloride [Moles/Vol]103 mmol/CEhjoez11-926Qhc [facility] Physician GroupComment on above:Performed By: #### HS TROP #### [facility] [address] [place] [address] USACO2 [Moles/Vol]30.9 mmol/UDoslnw24.0-31.0The [facility] Physician GroupComment on above:Performed By: #### HS TROP #### [facility] [address] [place] [address] USACreatinine [Mass/Vol]0.86 mg/dLNormal0.60-1.20The [facility] Physician GroupComment on above:Performed By: #### HS TROP #### [facility] [address] [place] [address] USACreatinine Clr Calc Mlbdfzce710.66NormalThe [facility] Physician GroupComment on above:Performed By: #### HS TROP #### [facility] [address] [place] [address] USAGFR/1.73 sq M.predicted MDRD (S/P/Bld) [Vol rate/Area] mL/min/{1.73_m2}NormalThe [facility] Physician GroupComment on above:Performed By: #### HS TROP #### [place] [address] USAGlucose [Mass/Vol]123 mg/lLEnml66-772Iek [facility] Physician GroupComment on above:Result Comment: Random Glucose Reference Range is dependent on time and content of last meal. Glucose of more than 200 mg/dL in a nonstressed, ambulatory subject supports the diagnosis of Diabetes Mellitus. ADA recommended reference rangePerformed By: #### HS TROP #### [place] [address] USAPotassium [Moles/Vol]4.0 mmol/LNormal3.5-5.1The [facility] Physician GroupComment on above:Performed By: #### HS TROP #### [place] [address] USASodium [Moles/Vol]140 mmol/ULtihsu892-427Hod [facility] Physician GroupComment on above:Performed By: #### HS TROP #### [place] [address] USAUrea nitrogen [Mass/Vol]17 mg/dLNormal7-25The [facility] Physician GroupComment on above:Performed By: #### HS TROP #### [place] [address] USAComplete Blood Count Auto Diffon 46-79-1145Zbeawvdft (Bld) [#/Vol]0.1 10*3/uLNormal0.0-0.2The [facility] Physician GroupComment on above: Result Comment: PERFORMED BY: [place] [address] PATHOLOGIST BINDER OPERATOR CHANEL ROMERO M.D.Performed By: #### HS TROP #### [place] [address] USABasophils/100 WBC (Bld)0.7 %Normal.The [facility] Physician GroupComment on above:Performed By: #### HS TROP #### [place] [address] USAEosinophils (Bld) [#/Vol]0.3 10*3/uLNormal0.0-0.45The [facility] Physician GroupComment on above:Performed By: #### HS TROP #### [facility] [address] [place] [address] USAEosinophils/100 WBC (Bld)2.8 %Normal.The [facility] Physician GroupComment on above:Performed By: #### HS TROP #### [facility] [address] [place] [address] USAErythrocyte distribution width (RBC) [Ratio]17.1 %High 11.9-15.3The [facility] Physician GroupComment on above:Performed By: #### HS TROP #### [place] [address] USAHematocrit (Bld) [Volume fraction]36.5 %Jnpgir80.0-46.4The [facility] Physician GroupComment on above:Performed By: #### HS TROP #### [place] [address] USAHemoglobin (Bld) [Mass/Vol]11.6 g/dLLow11.8-15.4The [facility] Physician GroupComment on above:Performed By: #### HS TROP #### [place] [address] USALymphocytes (Bld) [#/Vol]1.9 10*3/uLNormal1.00-4.8The [facility] Physician GroupComment on above:Performed By: #### HS TROP #### [place] [address] USALymphocytes/100 WBC (Bld)16.9 %Normal.The [facility] Physician GroupComment on above:Performed By: #### HS TROP #### [place] [address] USAMCH (RBC) [Entitic mass]25.0 plXyksde73.7-34.3The [facility] Physician GroupComment on above:Performed By: #### HS TROP #### [place] [address] USAMCV (RBC) [Entitic vol]78.4 tCZnp88-094Vul [facility] Physician GroupComment on above:Performed By: #### HS TROP #### [place] [address] USAMean Corpuscular HGB Conc31.9 g/dLLow32.0-35.0The [facility] Physician GroupComment on above:Performed By: #### HS TROP #### [place] [address] USAMonocytes (Bld) [#/Vol]0.6 10*3/uLNormal0.0-0.8The [facility] Physician GroupComment on above:Performed By: #### HS TROP #### [place] [address] USAMonocytes/100 WBC (Bld)5.6 %Normal.The [facility] Physician GroupComment on above:Performed By: #### HS TROP #### [place] [address] USANeutrophils (Bld) [#/Vol]8.3 10*3/uLHigh1.8-7.7The [facility] Physician GroupComment on above:Performed By: #### HS TROP #### [place] [address] USANeutrophils/100 WBC (Bld)74.0 %Normal.The [facility] Physician GroupComment on above:Performed By: #### HS TROP #### [place] [address] USANRBC%0.1 /100{WBC}Normal0-0.5The [facility] Physician Group Comment on above:Performed By: #### HS TROP #### [place] [address] USAPlatelet mean volume (Bld) [Entitic vol]7.4 fLNormal 6.3-10.7The [facility] Physician GroupComment on above:Performed By: #### HS TROP #### [address] [place] [address] USAPlatelets (Bld) [#/Vol]349 10*3/aFRrfacr342-855Ycu [facility] Physician GroupComment on above:Performed By: #### HS TROP #### [place] [address] USARBC (Bld) [#/Vol]4.65 10*6/uLNormal3.60-5.00The [facility] Physician GroupComment on above:Performed By: #### HS TROP #### [place] [address] USAWBC (Bld) [#/Vol]11.2 10*3/uLNormal3.8-11.6The [facility] Physician GroupComment on above:Performed By: #### HS TROP #### [place] [address] USAWhite Blood Count11.2 [CFU]/mLNormal3.8-11.6The [facility] Physician GroupComment on above:Performed By: #### HS TROP #### [place] [address] USAECG 12 lead ECGon 21-27-6724YPT 12 lead [facility] Main [place] [address] [place] [address] Electrocardiograph Report Signed Patient: Noel Paul MR#: [id number] : 1990 Acct:[id number] Age/Sex: 34 / F ADM Date: 06/15/25 Loc: Room: [address] [place] [address] Type: ADM INOo Attending Dr: Mitch Galaviz [...] rhythm Normal ECG Confirmed by Inge Adler ([id number]) on 06/15/2025 7:22:48 PM Referred By: Electronically Signed By: Inge Adler Transcribed By: MUS Signed By Inge Adler MD [address] [place] [address] Physician GroupECG 12 lead [facility] Main [place] [id number] Electrocardiograph Report Signed Patient: Noel Paul MR#: [id number] : 1990 Acct:[id number] Age/Sex: 34 / F ADM Date: 06/15/25 Loc: Room: [address] [place] [address] Type: ADM INOo Attending Dr: Mitch Galaviz [...] rhythm Normal ECG Confirmed by Inge Adler ([id number]) on 06/15/2025 7:22:44 PM Referred By: Electronically Signed By: Igne Adler Transcribed By: MUS Signed By Inge Adler MD [address] [place] [address] Physician GroupECH echo transthoracicon 04-26-2362ICN echo transthoracicLANCASTER M[facility] Main [place] [id number] Echocardiogram Signed Patient: Noel Paul MR#: [id number] : 1990 Acct:[id number] Age/Sex: 34 / F ADM Date: 06/15/25 Loc: Room: [address] [place] [address] Type: ADM INOo Attending Dr: Mitch Galaviz [...] 1243 Signed By: Inge Adler MD 06/15/25 1758[facility] Glucose Poct Glucometerson 02-61-4217Ipswmbu1Ezk6: Cleaned MeterMercy HospitalComment on above:Result Comment: PERFORMED BY: [address] [place] [address] PATHOLOGIST BINDER OPERATOR CHANEL ROMERO M.D.Performed By: #### GLULS #### Point of Care testing ,Glucose [Mass/Vol]111 mg/dLBaptist Health Doctors Hospital Physician [facility] CenterComment on above: Result Comment: Random Glucose Reference Range is dependent on time and content of last meal. Glucose of more than 200 mg/dL in a nonstressed, ambulatory subject supports the diagnosis of Diabetes Mellitus.Performed By: #### GLULS #### Point of Care testing ,Glucose [Mass/Vol]108 mg/dLBaptist Health Doctors Hospital Physician [facility] CenterComment on above: Result Comment: Random Glucose Reference Range is dependent on time and content of last meal. Glucose of more than 200 mg/dL in a nonstressed, ambulatory subject supports the diagnosis of Diabetes Mellitus. PERFORMED BY: [address] [place] [address] PATHOLOGIST BINDER OPERATOR CHANEL ROMERO M.D.Performed By: #### GLULS #### Point of Care testing ,Glucose [Mass/Vol]74 mg/dLBaptist Health Doctors Hospital Physician [facility] CenterComment on above: Result Comment: Random Glucose Reference Range is dependent on time and content of last meal. Glucose of more than 200 mg/dL in a nonstressed, ambulatory subject supports the diagnosis of Diabetes Mellitus. PERFORMED BY: [address] [address] PATHOLOGIST BINDER OPERATOR CHANEL ROMERO M.D.Performed By: #### GLULS #### Point of Care testing ,Jkovlsu5Bhn4: Cleaned MeterBaptist Health Doctors Hospital Physician GroupComment on above: Result Comment: PERFORMED BY: [address] [place] [address] PATHOLOGIST BINDER OPERATOR CHANEL ROMERO M.D.Performed By: #### GLULS #### Point of Care testing ,Glucose [Mass/Vol]88 mg/dLBaptist Health Doctors Hospital Physician GroupComment on above: Result Comment: Random Glucose Reference Range is dependent on time and content of last meal. Glucose of more than 200 mg/dL in a nonstressed, ambulatory subject supports the diagnosis of Diabetes Mellitus.Performed By: #### GLULS #### Point of Care testing ,Xevfxob6Tha1: Cleaned MeterNoAtrium Health [facility] Physician GroupComment on above: Result Comment: PERFORMED BY: [address] [place] [address] PATHOLOGIST BINDER OPERATOR CHANEL ROMERO M.D.Performed By: #### GLULS #### Point of Care testing ,Glucose [Mass/Vol]79 mg/dLBaptist Health Doctors Hospital Physician GroupComment on above: Result Comment: Random Glucose Reference Range is dependent on time and content of last meal. Glucose of more than 200 mg/dL in a nonstressed, ambulatory subject supports the diagnosis of Diabetes Mellitus.Performed By: #### GLULS #### Point of Care testing ,Glucose [Mass/Vol]64 mg/dLBaptist Health Doctors Hospital Physician GroupComment on above: Result Comment: Random Glucose Reference Range is dependent on time and content of last meal. Glucose of more than 200 mg/dL in a nonstressed, ambulatory subject supports the diagnosis of Diabetes Mellitus. PERFORMED BY: [place] [address] PATHOLOGIST BINDER OPERATOR CHANEL ROMERO M.D.Performed By: #### GLULS #### Point of Care testing ,Glucose [Mass/Vol]94 mg/dLBaptist Health Doctors Hospital Physician GroupComment on above: Result Comment: Random Glucose Reference Range is dependent on time and content of last meal. Glucose of more than 200 mg/dL in a nonstressed, ambulatory subject supports the diagnosis of Diabetes Mellitus. PERFORMED BY: [address] [place] [address] PATHOLOGIST BINDER OPERATOR CHANEL ROMERO M.D.Performed By: #### GLULS #### Point of Care testing ,Bcfzlzo8Gdz4: Cleaned MeterNoAtrium Health [facility] Hospital Physician GroupComment on above: Result Comment: PERFORMED BY: [place] [address] PATHOLOGIST BINDER OPERATOR CHANEL ROMERO M.D.Performed By: #### GLULS #### Point of Care testing ,Glucose [Mass/Vol]115 mg/dLBaptist Health Doctors Hospital Physician GroupComment on above: Result Comment: Random Glucose Reference Range is dependent on time and content of last meal. Glucose of more than 200 mg/dL in a nonstressed, ambulatory subject supports the diagnosis of Diabetes Mellitus.Performed By: #### GLULS #### Point of Care testing ,Whxplns5Rkt1: Cleaned MeterBaptist Health Doctors Hospital Physician GroupComment on above: Result Comment: PERFORMED BY: [place] [id number] PATHOLOGIST BINDER OPERATOR CHANEL ROMERO M.D.Performed By: #### GLULS #### Point of Care testing ,Glucose [Mass/Vol]135 mg/dLBaptist Health Doctors Hospital Physician GroupComment on above: Result Comment: Random Glucose Reference Range is dependent on time and content of last meal. Glucose of more than 200 mg/dL in a nonstressed, ambulatory subject supports the diagnosis of Diabetes Mellitus.Performed By: #### GLULS #### Point of Care testing ,Lipid Panelon 64-52-5480Fekbmstqlhf [Mass/Vol]158 mg/aHIsykmf396-479Vlt [facility] Physician GroupComment on above:Result Comment: Chol less than 200 mg/dl low risk Chol 201-239 mg/dl borderline risk Chol 240 mg/dl and greater high riskPerformed By: #### HS TROP #### [place] [address] USACholesterol in HDL [Mass/Vol]31 mg/uNYfygrd80-00Rgt [facility] Physician GroupComment on above:Result Comment: HDL CHOL ATP-III CLASSIFICATION Cardiovascular Risk HDL > or equal to 60 mg/dL LOW HDL < 40 mg/dL HIGHPerformed By: #### HS TROP #### [place] [address] USACholesterol.total/Cholesterol in HDL [Mass ratio]5.1 {ratio}Normal<5.0The [facility] Physician GroupComment on above:Result Comment: PERFORMED BY: [place] [address] PATHOLOGIST BINDER OPERATOR CHANEL ROMERO M.D.Performed By: #### HS TROP #### [place] [address] USALDL Cholesterol,Cxuufpxvwm33 mg/dLNormal0-100The [facility] Physician GroupComment on above:Result Comment: LDL ATP III CLASSIFICATION LDL less than 100 mg/dL Optimal LDL 100-129 mg/dL Near or above optimal LDL 130-159 mg/dL Borderline high LDL 160-189 mg/dL High LDL greater than 189 mg/dL Very highPerformed By: #### HS TROP #### [place] [address] USATriglyceride w/Zqlfrt463 mg/dLHigh0-149The [facility] Physician GroupComment on above:Result Comment: TRIG ATP III CLASSIFICATION TRIG less than 150 mg/dL Normal TRIG 150-199 mg/dL Borderline high TRIG 200-500 mg/dL High TRIG greater than 500 mg/dL Very high Standard traceable to the Center for Disease Conrtrol and Prevention (CDC) test method.Performed By: #### HS TROP #### [place] [address] USAVLDL HXNQVBBUWQX15 mg/dLNormalThe [facility] Physician GroupComment on above:Performed By: #### HS TROP #### [place] [address] USAMagnesiumon 51-85-0904Xkvuqxdwf [Mass/Vol]1.8 mg/dLLow 1.9-2.7The [facility] Physician GroupComment on above:Performed By: #### HS TROP #### [place] [address] USATroponin I High Sensitivityon 36-53-5985Jllkzvzg I High Jzjsgulzpbi3Uatqzn9-87Qcg [facility] Physician [facility] CenterComment on above:Result Comment: The Troponin units of report have been changed to meet the Chest Pain Accreditation requirement, element EC5.M1l2. Troponin units are changed from pg/ml to ng/L. Also, the decimal is removed and results are in whole numbers. PERFORMED BY: [place] [address] PATHOLOGIST BINDER OPERATOR CHANEL ROMERO M.D.Performed By: #### HS TROP #### [place] [address] USATroponin I High Azotspiuldk8Jpcqvc5-76Uhp [facility] Physician [facility] CenterComment on above:Result Comment: The Troponin units of report have been changed to meet the Chest Pain Accreditation requirement, element EC5.M1l2. Troponin units are changed from pg/ml to ng/L. Also, the decimal is removed and results are in whole numbers. PERFORMED BY: [place] [address] PATHOLOGIST BINDER OPERATOR CHANEL ROMERO M.D.Performed By: #### HS TROP #### [place] [address] USATroponin I High Ghzlvenntsx7Ixcvgr7-41Nds [facility] Physician [facility] CenterComment on above:Result Comment: The Troponin units of report have been changed to meet the Chest Pain Accreditation requirement, element EC5.M1l2. Troponin units are changed from pg/ml to ng/L. Also, the decimal is removed and results are in whole numbers. PERFORMED BY: [place] [address] PATHOLOGIST BINDER OPERATOR CHANEL S HEATHER M.D.Performed By: #### GLULS #### Point of Care testing ,Troponin I.cardiac [Mass/volume] in Serum or Plasma by Detection limit <= 0.01 ng/mLOrdered By: Marek Simran on 04-41-4343Llkyzphr I.cardiac DL <= 0.01 ng/mL [Mass/Vol]3 ng/L0-15[facility] CenterComment on above:The Troponin units of report have been changed to meet the Chest Pain Accreditation requirement, element EC5.M1l2. Troponin units are changed from pg/ml to ng/L. Also, the decimal is removed and results are in whole numbers.BNP ser/plas Ordered By: Marek Dennis on 82-23-0189Weqjbazrlvq peptide B (Bld) [Mass/Vol]20.0 pg/mLNormal5-100[facility] CenterComment on above:Result Comment: PERFORMED BY: [address] [place] [address] PATHOLOGIST BINDER OPERATOR CHANEL ROMERO M.D.Performed By: #### GLULS #### Point of Care testing ,Basic Metabolic Panelon 45-82-2016Suuzzfcsyk Clr Calc Riienqyk415.28NoAt[facility] Health [facility] Physician GroupComment on above:Result Comment: PERFORMED BY: [address] [address] PATHOLOGIST BINDER OPERATOR CHANEL ROMERO M.D.Performed By: #### GLULS #### Point of Care testing ,GFR/1.73 sq M.predicted MDRD (S/P/Bld) [Vol rate/Area]mL/min/{1.73_m2}NormalThe [facility] Physician [facility] CenterComment on above:Performed By: #### GLULS #### Point of Care testing ,Basophils [#/volume] in Blood by Automated countOrdered By: PROVIDER TEMP on 19-60-6211Aruvfcgia (Bld) [#/Vol]0.2 10*3/uLNormal0.0-0.2FAccess Hospital DaytonComment on above:Result Comment: PERFORMED BY: [facility] [address] [place] [address] PATHOLOGIST BINDER OPERATOR CHANEL ROMERO M.D.Performed By: #### GLULS #### Point of Care testing ,Basophils/100 leukocytes in Blood by Automated countOrdered By: PROVIDER TEMP on 57-39-1231Jpgjixobs/100 WBC (Bld)1.4 %Normal.[facility] CenterComment on above:Performed By: #### GLULS #### Point of Care testing ,Calcium [Mass/volume] in Serum or PlasmaOrdered By: PROVIDER TEMP on 06-14-2025 Calcium [Mass/Vol]9.4 mg/dLNormal8.6-10.3FAccess Hospital Dayton Comment on above:Performed By: #### GLULS #### Point of Care testing ,Carbon dioxide, total [Moles/volume] in Serum or PlasmaOrdered By: PROVIDER TEMP on 61-32-7308RA0 [Moles/Vol]27.2 mmol/NGmzoxv09.0-31.0[facility] CenterComment on above:Performed By: #### GLULS #### Point of Care testing ,Chloride [Moles/volume] in Serum or PlasmaOrdered By: PROVIDER TEMP on 64-69-8741Qxjruiaq [Moles/Vol]105 mmol/QOqrqvd91-922ZwlptnnweUniversity Hospitals Tripoint Medical CenterComment on above:Performed By: #### GLULS #### Point of Care testing ,Complete Blood Count Auto Diffon 34-67-8427Jjrx Corpuscular HGB Conc32.2 g/dL Zmsjun84.0-35.0The [facility] Physician GroupComment on above:Performed By: #### GLULS #### Point of Care testing ,Monocytes/100 WBC (Bld)19.88 %Normal0.00-20.00The [facility]ician Group Comment on above:Performed By: #### GLULS #### Point of Care testing ,NRBC%0.1 /100{WBC}Normal0-0.5The [facility] Physician GroupComment on above: Performed By: #### GLULS #### Point of Care testing ,White Blood Count12.4 [CFU]/mLHigh3.8-11.6The [place] Physician GroupComment on above:Performed By: #### GLULS #### Point of Care testing ,Creatine kinase [Enzymatic activity/volume] in Serum or PlasmaOrdered By: PROVIDER TEMP on 26-82-7995GH [Catalytic activity/Vol]50 U/YSawxon59-206 [facility] CenterComment on above:Performed By: #### GLULS #### Point of Care testing ,Creatinine [Mass/volume] in Serum or PlasmaOrdered By: PROVIDER TEMP on 85-19-0125Sizhtjuvfy [Mass/Vol]0.99 mg/dLNormal0.60-1.20[facility] CenterComment on above:Performed By: #### GLULS #### Point of Care testing ,D-Dimer High Sensitivityon 55-31-1365Y-Dimer High Sensitivity<230Lakdin1-039Kyc [facility] ReadingComment on above:Result Comment: The reference range for [...] coagulation studies. Please contact the laboratory at [phone] for redraw instructions. PERFORMED BY: [address] [address] PATHOLOGIST BINDER OPERATOR CHANEL ROMERO M.D.Performed By: #### GLULS #### Point of Care testing ,ECG 12 lead ECGon 29-73-2463NFE 12 lead [facility] Main [address] [address] Electrocardiograph Report Signed Patient: Noel Paul MR#: [id number] : 1990 Acct:[id number] Age/Sex: 34 / F ADM Date: 06/15/25 Loc: Room: [address] [place] [address] Type: ADM INOo Attending Dr: Neo Mclaughlin [...] By: MUS Signed By Marek Dennis DO [address] Physician GroupEosinophils [#/volume] in Blood by Automated countOrdered By: PROVIDER TEMP on 17-77-2357Lwsyyypqxgk (Bld) [#/Vol] 0.3 10*3/uLNormal0.0-0.45[facility] CenterComment on above: Performed By: #### GLULS #### Point of Care testing ,Eosinophils/100 leukocytes in Blood by Automated countOrdered By: PROVIDER TEMP on 22-15-3882Juvheibfyri/100 WBC (Bld)2.8 %Normal.[facility] CenterComment on above:Performed By: #### GLULS #### Point of Care testing ,Erythrocyte distribution width [Ratio] by Automated countOrdered By: PROVIDER TEMP on 26-85-9229Skigfpzpwwi distribution width (RBC) [Ratio]16.5 %High 11.9-15.3FAccess Hospital DaytonComment on above:Performed By: #### GLULS #### Point of Care testing ,Erythrocytes [#/volume] in Blood by Automated countOrdered By: PROVIDER TEMP on 37-37-2345KQY (Bld) [#/Vol]4.98 10*6/uLNormal3.60-5.00[facility] CenterComment on above:Performed By: #### GLULS #### Point of Care testing ,Glucose [Mass/volume] in Serum or PlasmaOrdered By: PROVIDER TEMP on 06-14-2025 Glucose [Mass/Vol]143 mg/eBUknq98-648GoopzjsywUniversity Hospitals Tripoint Medical CenterComment on above:ADA recommended reference rangeRandom [...] by Automated countOrdered By: PROVIDER TEMP on 21-76-4967Spiijbessf (Bld) [Volume fraction]38.6 %Iauvse62.0-46.4 [facility] CenterComment on above:Performed By: #### GLULS #### Point of Care testing ,Hemoglobin [Mass/volume] in BloodOrdered By: PROVIDER TEMP on 06-14-2025 Hemoglobin (Bld) [Mass/Vol]12.4 g/xLDnoqhf83.8-15.4FAccess Hospital DaytonComment on above:Performed By: #### GLULS #### Point of Care testing ,INR in Platelet poor plasma by Coagulation assayOrdered By: Marek Dennis on 89-88-2275VYN Coag (PPP) [Relative time]1.0 {INR}[facility] Rehabilitation HospitalComment on above:INR Therapeutic Range A) Pre- [...] heart valves: 3 - 4.5 PERFORMED BY: [facility] [place] [address] PATHOLOGIST BINDER OPERATOR CHANEL ROMERO M.D.Performed By: #### GLULS #### Point of Care testing ,Leukocytes [#/volume] corrected for nucleated erythrocytes in Blood by Automated counOrdered By: PROVIDER TEMP on 51-19-9260KZS corrected for nucl RBC Auto (Bld) [#/Vol]12.4 10*3/uLHigh3.8-11.6FAccess Hospital Dayton Leukocytes [#/volume] in Blood by Automated countOrdered By: PROVIDER TEMP on 08-58-8630MMN (Bld) [#/Vol]12.4 10*3/uLHigh3.8-11.6FAccess Hospital DaytonComment on above:Performed By: #### GLULS #### Point of Care testing ,Lymphocytes [#/volume] in Blood by Automated countOrdered By: PROVIDER TEMP on 04-75-2373Iayntdjhfxq (Bld) [#/Vol]2.0 10*3/uLNormal1.00-4.8[facility] CenterComment on above:Performed By: #### GLULS #### Point of Care testing ,Lymphocytes/100 leukocytes in Blood by Automated countOrdered By: PROVIDER TEMP on 31-57-7223Tqzxxfplxqh/100 WBC (Bld)15.9 %Normal.[facility] CenterComment on above:Performed By: #### GLULS #### Point of Care testing ,MCH [Entitic mass] by Automated countOrdered By: PROVIDER TEMP on 29-43-5658UMF (RBC) [Entitic mass]25.0 npBjxvbj50.7-34.3FAccess Hospital [facility] Comment on above:Performed By: #### GLULS #### Point of Care testing ,MCHC Auto (RBC) [Mass/Vol]Ordered By: PROVIDER TEMP on 11-40-7738FIMI (RBC) [Mass/Vol]32.2 g/dL32.0-35.0[facility] CenterMCV [Entitic volume] by Automated countOrdered By: PROVIDER TEMP on 30-34-6648NIC (RBC) [Entitic vol]77.6 hNWyj77-856VawtnntclUniversity Hospitals Tripoint Medical CenterComment on above: Performed By: #### GLULS #### Point of Care testing ,Monocyte distribution width [Entitic volume] in Blood by AutomatedOrdered By: PROVIDER TEMP on 52-44-2385Fasqjkoe distribution width Auto (Bld) [Entitic vol] 19.88 %0.00-20.00[facility] CenterMonocytes [#/volume] in Blood by Automated countOrdered By: PROVIDER TEMP on 67-56-4051Jgjntjorl (Bld) [#/Vol] 0.6 10*3/uLNormal0.0-0.8[facility] CenterComment on above: Performed By: #### GLULS #### Point of Care testing ,Monocytes/100 leukocytes in Blood by Automated countOrdered By: PROVIDER TEMP on 16-01-1480Biuodlknb/100 WBC (Bld)5.2 %Normal.[facility] CenterComment on above:Performed By: #### GLULS #### Point of Care testing ,Neutrophils [#/volume] in Blood by Automated countOrdered By: PROVIDER TEMP on 71-44-4893Okyiemmbyma (Bld) [#/Vol]9.3 10*3/uLHigh1.8-7.7FAccess Hospital DaytonComment on above:Performed By: #### GLULS #### Point of Care testing ,Neutrophils/100 leukocytes in Blood by Automated countOrdered By: PROVIDER TEMP on 95-52-4227Cczadiugjcq/100 WBC (Bld)74.7 %Normal.[facility] CenterComment on above:Performed By: #### GLULS #### Point of Care testing ,No Panel InformationOrdered By: PROVIDER TEMP on 97-83-6878Pibsfbjvk GFR (CKD-EPI)> 60.0 mL/MinUniversity Hospitals Tripoint Medical CenterPharmacy Creatinine Clearance (Osps734.28[facility] Medical CenterNucleated erythrocytes [Presence] in Blood by Automated countOrdered By: PROVIDER TEMP on 06-14-2025 Nucleated RBC Auto Ql (Bld)0.1 /100{WBC}0-0.5FAccess Hospital [facility] Platelet mean volume [Entitic volume] in Blood by Automated countOrdered By: PROVIDER TEMP on 24-03-8700Biamdslm mean volume (Bld) [Entitic vol]7.5 fLNormal 6.3-10.7FAccess Hospital DaytonComment on above:Performed By: #### GLULS #### Point of Care testing ,Platelets [#/volume] in Blood by Automated countOrdered By: PROVIDER TEMP on 75-76-9812Psyyyjhzn (Bld) [#/Vol]361 10*3/rXZklckt429-310OixrvoolqUniversity Hospitals Tripoint Medical CenterComment on above:Performed By: #### GLULS #### Point of Care testing ,Potassium [Moles/volume] in Serum or PlasmaOrdered By: PROVIDER TEMP on 47-17-6678Aqzybflos [Moles/Vol]3.7 mmol/LNormal3.5-5.1FAccess Hospital DaytonComment on above:Performed By: #### GLULS #### Point of Care testing ,Prothrombin time (PT)Ordered By: Marek Dennis on 16-70-5280GY Coag (PPP) [Time] 11.5 sNormal9.0-12.9[facility] CenterComment on above:A hematocrit value greater than 55% may lead to inaccurate results in coagulation testing. Patientshaving hematocrit values >55% require a special collection tube for coagulation studies. Please contact the laboratory at [phone] for redraw instructions.Result Comment: A hematocrit value greater than 55% may lead to inaccurate results in coagulation testing. Patients having hematocrit values >55% require a special collection tube for coagulation studies. Please contact the laboratory at [phone] for redraw instructions.Performed By: #### GLULS #### Point of Care testing ,Serum or plasma anion gap determinationOrdered By: PROVIDER TEMP on 06-14-2025 Anion gap [Moles/Vol]11.5 mmol/LNormal6.0-15.0[facility] Comment on above:Performed By: #### GLULS #### Point of Care testing ,Sodium [Moles/volume] in Serum or PlasmaOrdered By: PROVIDER TEMP on 06-14-2025 Sodium [Moles/Vol]140 mmol/SHbkabi259-381AvqgesxcnUniversity Hospitals Tripoint Medical Center Comment on above:Performed By: #### GLULS #### Point of Care testing ,Troponin I High Sensitivityon 64-54-6609Afopzyah I High Kflqomwmeky8Mvpwkz9-04 [facility] Physician GroupComment on above:Result Comment: The Troponin units of report have been changed to meet the Chest Pain Accreditation requirement, element EC5.M1l2. Troponin units are changed from pg/ml to ng/L. Also, the decimal is removed and results are in whole numbers. PERFORMED BY: [place] [address] PATHOLOGIST BINDER OPERATOR CHANEL ROMERO M.D.Performed By: #### GLULS #### Point of Care testing ,Urea nitrogen [Mass/volume] in Serum or PlasmaOrdered By: PROVIDER TEMP on 58-82-9586Uuat nitrogen [Mass/Vol]16 mg/dLNormal7-25[facility] CenterComment on above:Performed By: #### GLULS #### Point of Care testing ,X-ray reportOrdered By: Fermín Wilks on 14-53-6190Oxaxe reportLANCASTER [facility] [address] XRay Report Signed Patient: Noel Paul MR#: [id number] : 1990 Acct:[id number] Age/Sex: 34 / F ADM Date: 5 [...] Wilks II, MD 06/14/252255 Signed By: 06/14/252256 [facility] Work Phone: XR chest 2V*on 17-43-0113GF chest 2V*[facility] [place] [address] XRay Report Signed Patient: Noel Paul MR#: [id number] : 1990 Acct:[id number] Age/Sex: 34 / F ADM Date: 06/14/25 [...] Wilks II, MD 06/14/252255 Signed By: 06/14/[address] [place] [address] Physician GroupMR Ankle - right WO contraston 75-32-5815HWUEFZCAWR: 1. Postoperative changes of posterior tibialis tendon reattachment with marked thickening of the distal tendon probably due to degeneration or postoperative scarring. No evidence of a complete tear. 2. Tenosynovitis at the master knot of Luis. 3. Chronic changes in the deltoid and spring ligaments as described. Sales Facilitator: PSC[employer] Transcribe Date/Time: Jun 06 2025 11:37A Dictated by : RADHA TYSON MD This examination was interpreted and the report reviewed and electronically signed by: KATIANA FLORES MD on Jun 06 2025 2:13PM [facility] DIVISION OF RADIOLOGY* * *Final Report* * * DATE OF EXAM: Jun 06 2025 8:43AM [facility] 0164 - MRI ANKLE WO IVCON [...] No significant additional findings. DIVISION OF RADIOLOGYProvider, [facility] [place] - 06/06/2025 * * *Final Report* * * DATE OF EXAM: Jun 06 2025 8:43AM [facility] 0164 - MRI ANKLE WO IVCON [...] the deltoid and spring ligaments as described. Sales Facilitator: [employer]SC[employer] Transcribe Date/Time: Jun 06 2025 11:37A Dictated by : RADHA TYSON MD This examination was interpreted and the report reviewed and electronically signed by: KATIANA FLORES MD on Jun 06 2025 2:13PM [facility] CenterRadiology Study observation (narrative)[facility] Ankle - right WO contrastOrdered By: Ccf Provider on 37-50-2764Ythxnnpny ClinicMRI ANKLE WO IVCON RTon 94-90-4596DDI ANKLE WO IVCON RT* * *Final Report* * * DATE OF EXAM: Jun 06 2025 8:43AM [facility] 0164 - MRI ANKLE WO IVCON [...] the deltoid and spring ligaments as described. Sales Facilitator: PSCB Transcribe Date/Time: Jun 06 2025 11:37A Dictated by : RADHA TYSON MD This examination was interpreted and the report reviewed and electronically signed by: KATIANA FLORES MD on Jun 06 2025 2:13PM EST [id number] Hospitals Portage Medical Center 93-77-8798YPGT Telephone (RAYMONDORRM) NOEL PAUL ([id number]) 1990 F [place] Date Time Provider Department 05/17/25 SEAN MATA During your visit today, we recorded the following information about you: Natalia Barrios CT 05/17/2025 12:02 PM Signed Patients boot in no longer inflating or button is broken. Her mother will be coming in this way next week. She will bring the boot to change it out. Patient lives in [place]. Allergies As of Date: 05/17/2025 Noted Allergy [...] by mouth once daily. - DEXCOM G7 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 - DEXCOM G7 SENSOR [...] 12/28/2024 Encounter Status:Closed by NATALIA BARRIOS on 06/04/25[facility] 84-18-0493TMMOEdncgu Visit (LOORRM) NOEL PAUL ([id number]) 1990 F [place] Date Time Provider Department 05/16/25 2:30 PM SEAN MATA LOORRMadi During your visit today, we recorded the following information about you: Sean Mata DPM 05/16/2025 2:44 PM Signed Medical intake sheet from May 16, 2025 , was updated by patient, reviewed, and was made part of the patient's chart. Sean Mata DPM PRIMARY SERVICE: [facility] Podiatry SUBJECTIVE: Patient is seen [...] tablet by mouth once daily. 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 DEXCOM G7 SENSOR eduin [...] [M25.571, G89.29] Order(s):MRI ANKLE WO IVCON RIGHT [[id number]] Order #: [id number] FUTURE Prescriptions as of 05/16/2025 - keTORolac (TORADOL) 10 mg tablet Take 1 tablet by mouth every 6 hours as needed. with food. - aspirin 325 mg tablet Take 1 tablet by mouth once daily. - DEXCOM G7 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 - DEXCOM G7 SENSOR [...] joint [M19*12/28/2024 BMI 60. (more content not included)...NormalVan Wert County HospitalOVArchbold - Brooks County Hospitalice Visit (LOORRM) NOEL PAUL ([id number]) 1990 F [place] Date Time Provider Department [...] by mouth once daily. - DEXCOM G7 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 - DEXCOM G7 SENSOR [...] 12/28/2024 Encounter Status:Closed by BEVERLY DOBSON on 05/16/25[facility] 21-70-0801LJOBIhdntb Visit (LOORR) NOEL PAUL ([id number]) 1990 F [place] Date Time Provider Department [...] Rash Date Reviewed: 04/25/2025 Reviewed by: Racquel Nbole OCCA - Fully Assessed Primary Visit Diagnosis:S/P foot surgery, right [Z98.890] Prescriptions as of 05/06/2025 - keTORolac (TORADOL) 10 mg tablet Take 1 tablet by mouth every 6 hours as needed. with food. - aspirin 325 mg tablet Take 1 tablet by mouth once daily. - DEXCOM G7 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 - DEXCOM G7 SENSOR [...] 12/28/2024 Encounter Status:Closed by BEVERLY DOBSON on 05/06/25No[facility] Additional Injections: R subtalar jointon 29-90-1435GzcrwtdSean Mata DPM 04/25/2025 2:38 PM Additional Injections: [...] these instructions. Informed Consent Consent Obtained: Verbal Hext Protocol A moment to CARE was completed. [...] the bedside nurse for hospitalized patients) applicable. [facility] Medical CenterCNOVon 45-47-4611CYCAHkfrdg Visit (LOORRM) NOEL PAUL ([id number]) 1990 F [place] Date Time Provider Department [...] by mouth once daily. - DEXCOM G7 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 - DEXCOM G7 SENSOR [...] 12/28/2024 Encounter Status:Closed by BEVERLY DOBSON on 04/25/25[facility] Visit (LOORRM) NOEL PAUL ([id number]) 1990 F [place] Date Time Provider Department 04/25/25 2:00 PM SEAN MATA During your visit today, we recorded the following information about you: Sean Mata, SHITAL 04/25/2025 2:38 PM Signed PRIMARY SERVICE: [facility] Podiatry SUBJECTIVE: Patient is seen [...] by mouth once daily. - DEXCOM G7 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 - DEXCOM G7 SENSOR [...] these instructions. Informed Consent Consent Obtained: Verbal Hext Protocol A moment to CARE was completed. [...] right [M25.571] Order(s):Additional Injections: R subtalar joint [ASW272] Order #: [id number] CAST DAVID LEG, SHORT(WALKING) [85362EWR-DD] Order #: [id number] [] BUPivacaine (PF) 0.5 % (5 mg/mL) 1 mL injectionDisp: Rfl: [] triamcinolone acetonide (more content not included)...NormalGrand Lake Joint Township District Memorial HospitalCNCOon 10-70-4224DARXYiseta TextNormalCDetwiler Memorial Hospital CNOVon 16-44-0818MFJLZnqivl Visit (LOORRM) NOEL PAUL ([id number]) 1990 F [place] Date Time Provider Department 03/14/25 3:45 PM SEAN MATA LOORRMadi During your visit today, we recorded the following information about you: Sean Mata, SHITAL 03/14/2025 4:01 PM Signed PRIMARY SERVICE: [facility] Podiatry SUBJECTIVE: Patient is seen [...] for up to 10 days. 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 DEXCOM G7 SENSOR eduin [...] [Z98.890] Order(s):XR FOOT GENERAL 3V AP/LAT/OBL RIGHT [[id number]] Order #: [id number] FUTURE XR FOOT GENERAL 3V AP/LAT/OBL RIGHT [[id number]] Order #: [id number] FUTURE Prescriptions as of 03/14/2025 - keTORolac (TORADOL) 10 mg tablet Take 1 tablet by mouth every 6 hours as needed. with food. - aspirin 325 mg tablet Take 1 tablet by mouth once daily. - DEXCOM G7 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 - DEXCOM G7 SENSOR [...] joint [M19*12/28/2024 BMI 6 (more content not included)...NormalGrand Lake Joint Township District Memorial HospitalXR FOOT 3V AP/LAT/OBL RTon 41-21-8624VV FOOT 3V AP/LAT/OBL RT* * *Final Report* [...] interval change. IMPRESSION: No significant interval change. Sales Facilitator: [facility] GRANGESparkroom Transcribe Date/Time: Mar 14 2025 4:01P Dictated by : NEO PERLA MD This examination was interpreted and the report reviewed and electronically signed by: NEO PERLA MD on Mar 14 2025 4:02PM EST [id number] Lake Joint Township District Memorial HospitalXR Foot - right AP and Lateral and obliqueon 44-97-1743TWIKIBMMPL: No significant interval change. Sales Facilitator: [employer] Transcribe Date/Time: Mar 14 2025 4:01P Dictated [...] other significant interval change. DIVISION OF RADIOLOGYProvider, [facility] [place] - 03/14/2025 * * *Final Report* * [...] change. IMPRESSION IMPRESSION: No significant interval change. Sales Facilitator: PSCB Transcribe Date/Time: Mar 14 2025 4:01P Dictated by : NEO PERLA MD This examination was interpreted and the report reviewed and electronically signed by: NEO PERLA MD on Mar 14 2025 4:02PM EST [facility] HospitalRadiology Study observation (narrative)[facility] HospitalXR Foot - right AP and Lateral and obliqueOrdered By: Ccf Provider on 77-64-4853Prczqqcvj ClinicCNPNon 01-07-9702TDTKQaaeplgug (ORQ) NOEL PAUL ([id number]) 1990 F [place] Date Time Provider Department 02/20/25 SEAN MATA During your visit today, we recorded the following information about you: Marva Bhardwaj 02/20/2025 4:08 PM Signed Bonilla from [facility] PT Dept is calling Sean Mata DPM today to request weightbearing guide lines for patient PT CB [phone] ext [phone] FAX [phone] Patient has been identified by name and birthdate. Duration of symptoms: N/A Person calling: caregiver: Call patient at: [phone] (home) [phone] (cell) Was an appointment scheduled: No Closing statement: Results or non-symptom based questions: Thank you for calling [facility], your call will be returned within the next business day. Marva Brightford, Hcris, RAIZA 02/20/2025 4:21 PM Signed Called and [...] by mouth once daily. - DEXCOM G7 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 - DEXCOM G7 SENSOR [...] 12/28/2024 Encounter Status:Closed by CHRIS BHATT on 02/20/25[facility] Hospitalmahesh 54-65-3094WMWRNcrppj Visit (LOORRM) NOEL PAUL ([id number]) 1990 F [place] Date Time Provider Department 02/13/25 9:45 AM SEAN MATA LOORRMadi During your visit today, we recorded the following information about you: Sean Mata, Madi 02/13/2025 10:05 AM Signed PRIMARY SERVICE: [facility] Podiatry SUBJECTIVE: Patient is seen [...] up to 10 days. - DEXCOM G7 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 - DEXCOM G7 SENSOR [...] [Z98.890] Order(s):XR FOOT GENERAL 3V AP/LAT/OBL RIGHT [[id number]] Order #: [id number] FUTURE CONSULT TO PHYSICAL THERAPY [9032] Order #: [id number]: 1 FUTURE Prescriptions as of 02/13/2025 - keTORolac (TORADOL) 10 mg tablet Take 1 tablet by mouth every 6 hours as needed. with food. - aspirin 325 mg tablet Take 1 tablet by mouth once daily. - DEXCOM G7 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 - DEXCOM G7 SENSOR [...] As Of Date 02/13 (more content not included)...NormalVan Wert County HospitalOVOffice Visit (LOORRM) NOEL PAUL ([id number]) 1990 F [place] Date Time Provider Department [...] - Rash Date Reviewed: 12/31/2024 Reviewed by: Lorne Martinez RN - Fully Assessed Primary Visit Diagnosis:S/P foot surgery, right [Z98.890] Prescriptions as of 02/13/2025 - keTORolac (TORADOL) 10 mg tablet Take 1 tablet by mouth every 6 hours as needed. with food. - aspirin 325 mg tablet Take 1 tablet by mouth once daily. - DEXCOM G7 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 - DEXCOM G7 SENSOR [...] 12/28/2024 Encounter Status:Closed by BEVERLY DOBSON on 02/13/25NormalCDetwiler Memorial HospitalXR FOOT 3V AP/LAT/OBL RTon 84-50-7880SS FOOT 3V AP/LAT/OBL RT* * *Final Report* [...] interval change. IMPRESSION: Postoperative findings, as described. Sales Facilitator: [employer] Transcribe Date/Time: Feb 13 2025 9:26A Dictated by : MONALISA HOLGUIN MD This examination was interpreted and the report reviewed and electronically signed by: ANGELA VEGAS MD on Feb 13 2025 10:19AM EST [id number] Lake Joint Township District Memorial HospitalXR Foot - right AP and Lateral and obliqueon 37-73-5138LGUBPPREKV: Postoperative findings, as described. Sales Facilitator: PSC[employer] Transcribe Date/Time: Feb 13 2025 9:26A [...] other significant interval change. DIVISION OF RADIOLOGYProvider, [facility] [place] - 02/13/2025 * * *Final Report* * [...] change. IMPRESSION IMPRESSION: Postoperative findings, as described. Sales Facilitator: PSC[employer] Transcribe Date/Time: Feb 13 2025 9:26A Dictated by : MONALISA HOLGUIN MD This examination was interpreted and the report reviewed and electronically signed by: ANGELA VEGAS MD on Feb 13 2025 10:19AM EST [facility] HospitalRadiology Study observation (narrative)[facility] HospitalXR Foot - right AP and Lateral and obliqueOrdered By: [facility] Provider on 34-93-0853Sysysqknv ClinicCNOVon 85-46-8142OFEEHpimjs Visit (LOORRM) NOEL PAUL ([id number]) 1990 F [place] Date Time Provider Department [...] by mouth once daily. - DEXCOM G7 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 - DEXCOM G7 SENSOR [...] 12/28/2024 Encounter Status:Closed by BEVERLY DOBSON on 01/23/25[facility] Visit (LOORRM) NOEL PAUL ([id number]) 1990 F [place] Date Time Provider Department 01/23/25 11:30 AM SEAN MATA During your visit today, we recorded the following information about you: Sean Mata DPM 01/23/2025 11:47 AM Signed PRIMARY SERVICE: [facility] Podiatry SUBJECTIVE: Patient is seen [...] for up to 10 days. 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 DEXCOM G7 SENSOR eduin [...] [Q74.2] Order(s):XR FOOT GENERAL 3V AP/LAT/OBL RIGHT [[id number]] Order #: [id number] FUTURE PARKING FOR HANDICAPPED [[id number]] Order #: [id number] Prescriptions as of 01/23/2025 - keTORolac (TORADOL) 10 mg tablet Take 1 tablet by mouth every 6 hours as needed. with food. - aspirin 325 mg tablet Take 1 tablet by mouth once daily. - DEXCOM G7 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 - DEXCOM G7 SENSOR [...] for 90 - oxyCOD (more content not included)...NormalGreen [facility] Hospital 70-61-8607VHVGGjsxnl TextNormalCUniversity Hospitals Portage Medical Center 01-80-9754SZKE Office Visit (LOORRM) NOEL PAUL ([id number]) 1990 F [place] Date Time Provider Department 01/09/25 10:15 AM SEAN MATA During your visit today, we recorded the following information about you: EsperanzaSean DPM 01/09/2025 10:55 AM Signed PRIMARY SERVICE: [facility] Podiatry SUBJECTIVE: Patient is seen [...] for up to 10 days. 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 DEXCOM G7 SENSOR eduin [...] [Q74.2] Order(s):XR FOOT GENERAL 3V AP/LAT/OBL RIGHT [[id number]] Order #: [id number] FUTURE Prescriptions as of 01/09/2025 - keTORolac (TORADOL) 10 mg tablet Take 1 tablet by mouth every 6 hours as needed. with food. - aspirin 325 mg tablet Take 1 tablet by mouth once daily. - promethazine (PHENERGAN) 12.5 mg tablet Take 1 tablet by mouth every 8 hours as needed for up to 10 days. - DEXCOM G7 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 - DEXCOM G7 SENSOR [...] 01/09/2025 Noted R (more content not included)...Normal [facility] Visit (LOORRM) NOEL PAUL ([id number]) 1990 F [place] Date Time Provider Department [...] up to 10 days. - DEXCOM G7 RADIATION PROTECTION ENGINEER [facility] as directed. - DEXCOM G7 SENSOR [...] 12/28/2024 Encounter Status:Closed by SHAYLEE CONCEPCION on 01/09/25[facility] [id number] (LOORRM) NOEL PAUL ([id number]) 1990 F [place] Date Time Provider Department 01/02/25 SEAN MATA During your visit today, we recorded the following information about you: Sean Mata, SHITAL 01/02/2025 12:40 PM Signed Called patient at [phone] to return call regarding pain management. I [...] up to 5 days. - DEXCOM G7 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 - DEXCOM G7 SENSOR [...] 12/28/2024 Encounter Status:Closed by SEAN MATA on 01/02/25[facility] POSTPROC EVALon 54-34-6445UQNM POSTPROC EVALHNO ID: [id number] Author: PETER BROWN MD Service: Anesthesiology Author Type: Anesthesiologist Type: Anesthesia Postprocedure Evaluation Filed: 12/31/2024 11:19 Note Text: POST ANESTHESIA EVALUATION NOTE : 1990 Procedure Summary Date: 12/31/24 Room / Location: [address] Anesthesia Start: 737 Anesthesia Stop: 1005 [...] December 31, 2024 TIME: 11:19 AM CSN: [id number] [facility] PRE-OPon [id number] PRE-OPHNO ID: [id number] Author: PETER BROWN MD Service: Anesthesiology Author Type: Anesthesiologist Type: Anesthesia Preprocedure Evaluation Filed: 12/31/2024 07:32 Note Text: ANESTHESIOLOGY DAY OF SURGERY NOTE : 1990 Procedure Information Date/Time: 12/31/24729 Procedure: RECONSTRUCTION POSTERIOR TIBIAL TENDON W/EXCISION OF ACCESSORY TARSAL NAVICULAR BONE (Right: Foot) Location: [facility] LR02 / [facility] Surgeons: [...] of 12/31/2024 Medication Sig - DEXCOM G7 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 - DEXCOM G7 SENSOR [...] December 31, 2024 TIME: 7:31 AM CSN: [id number] Medical [facility] [place] [facility] NOTon [id number] OP NOTHNO ID: [id number] Author: SEAN AMTA DPM Service: Podiatry Author Type: Physician Type: Brief Op Note Filed: 12/31/2024 09:42 Note Text: BRIEF OPERATIVE / PROCEDURE NOTE LOG ID: [id number] SURGERY/PROCEDURE DATE: 12/31/2024 INCISION/PROCEDURE START TIME: 8:16 AM INCISION CLOSE/PROCEDURE END TIME: SURGEON(S)/PROCEDURALIST(S) AND SHROUDMAN(S): Surgeons and Role: * Sean Mata DPM [...] Abadphilip DATE: December 31, 2024 TIME: 9:39 AMNormalVan Wert County HospitalPNon 97-99-3612DBPDYjnnyutva (ORQ) NOEL PAUL ([id number]) 1990 F [place] Date Time Provider Department [...] calling: self Call patient at: at home [phone] (home) [phone] (cell) Was an appointment scheduled: No Closing statement: Results or non-symptom based questions: Thank you for calling [facility], your call will be returned within the next business day. Karissa Torrez MA 12/31/2024 3:26 PM Signed Message has been sent directly to Dr Mata's phone. Sean Mata DPM 01/01/2025 3:53 PM Signed Called patient at her Lonnie's cell number at [phone] to check on postop progress. Received voicemail. [...] up to 5 days. - DEXCOM G7 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 - DEXCOM G7 SENSOR [...] 12/28/2024 Encounter Status:Closed by SEAN MATA on 01/01/25NoKindred Hospital LimaOPERATIVE NOon [id number] NOHNO ID: [id number] Author: SEAN MATA DPM Service: Podiatry Author Type: Physician Type: Operative Report Filed: 01/24/2025 08:37 Note Text: [facility] - Operative Report [address] [address] [place] NOEL PAUL : 1990 AGE: 34. SEX: F PATIENT TYPE: OP HOSP SVC: ORTS LOCATION: [id number] ATTENDING PHYSICIAN: Sean Mata DPM CSN NUMBER: [id number] DATE OF SURGERY/PROCEDURE: 12/31/2024 INCISION/PROCEDURE START TIME: 8:16 a.m. INCISION CLOSE/PROCEDURE END TIME: 9:43 a.m. The procedure was performed in conjunction with the resident who was present in the operating room today under my direct supervision from skin to skin. PREOPERATIVE DIAGNOSIS: Painful remaining accessory navicular, right foot. POSTOPERATIVE DIAGNOSIS: Painful remaining accessory navicular, right foot. SURGEON: Sean Mata DPM SHROUDMAN: Maurice Bernard D.P.M. SURGERY/PROCEDURE: Revisional modified Kidner procedure, right foot, CPT 64193. ANESTHESIA: General with a local field block consisting of 20 mL of 2% lidocaine plain. LOCATION: [facility]. HEMOSTASIS: Right pneumatic thigh tourniquet at 350 [...] with a SutureTak, we then used some inxo-tow-cfmg sutures distally to the distal (more content not included)...NormalGrand Lake Joint Township District Memorial HospitalPathology biopsy report Joseph (Tiss)on [id number] REPORTNormal [facility] Memorial HospitalComment on above:Order Comment: Specimen Type: TISSUE SPECIMENOrdering Facility: [facility] Address: [address] [place] [address]Unmmxx Comment: Surgical Pathology Report Case: [id number] Authorizing Provider: Sean Mata, Collected: 12/31/2024 09:51 AM DPM Ordering Location: Ambulatory Surgery Received: 12/31/2024 01:28 PM Pathologist: Shemar Pablo MD Specimen: Bone and Soft Tissue, right footPerformed By: #### 80926-3 ####[facility]ENTERIA [id number] [place] [address] [facility] LABCLIA [id number] [address]ETCLINICAL HISTORYNormalCDetwiler Memorial HospitalComselect specialty hospital-[place] on above:Order Comment: Specimen Type: TISSUE SPECIMENOrdering Facility: [facility] Address: [address] [place] [address]Kybyuo Comment: Pre-op diagnosis: 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]Performed By: #### 32530-1 ####[facility]ENTERIA [id number] [place] [address] [facility] LABCLIA [id number] [address] OF [facility] FINAL DIAGNOSISNormTrinity Health SystemComselect specialty hospital-[place] on above:Order Comment: Specimen Type: TISSUE SPECIMENOrdering Facility: [facility] Address: [address] [place], [place] [address]Result Comment: A. Bone, right foot, excision: - Osteocartilaginous tissue with degenerative changes and granulation tissue. Performed By: #### 10253-2 ####[facility]ENTERIA [id number] [place] [address] [facility] LABCLIA [id number] [address] [address] [place] [facility]OSPITALFINAL PERFORMING LABNoDoctors Hospital on above: Order Comment: Specimen Type: TISSUE SPECIMENOrdering Facility: [facility] Address: [address] [place], [place] [address]Result Comment: Diagnostic interpretation performed at: [facility], [address] [facility] [address] CLIA# [id number] [employer] Counselor: SILVIO Talboterformed By: #### 44658-9 ####[facility]IA [id number] [place] [id number] [facility] LABCLIA [id number] [address]GROSS DESCRIPTIONNoDoctors Hospital on above:Order Comment: Specimen Type: TISSUE SPECIMENOrdering Facility: [facility] Address: [address] [place], [place] [address]Result Comment: A. Bone and Soft Tissue Received in formalin, labeled right foot are multiple irregular fragments of mccarthy, hard bone measuring 3 x 3 x 0.9 cm in aggregate. Sectioning reveals mccarthy, hard bone. No gross necrotic areas identified. Director Summer Sessions sections are submitted in A1 following formic decalcification. KSZ January 01, 2025 10:57 AM Gross examination performed at [facility], [address] [place], [place] [address]Performed By: #### 08444-1 ####[facility]ENTERIA [id number] [place] [address] [id number] [facility] LABIA [id number] [address] STREETHISTORY PHYSICALon 12-28-2024 HISTORY PHYSICALHNO ID: [id number] Author: ARY ROCHA APRN.CNP Service: ? Author Type: Nurse Practitioner Type: H&P Filed: 12/28/2024 10:56 Note Text: [facility] HISTORY AND PHYSICAL EXAMINATION SERVICE DATE: 12/28/2024 SERVICE TIME: 10:08 AM PRIMARY CARE PHYSICIAN: Monique Emmanuel CNP, SAW MAKER REASON FOR VISIT: Noel Paul is [...] STOP-Bang Score: STOP-Bang Score: 0 (Awaiting CPAP) [id number] Score: Age: <65 Sex: female [id number] Score: ARISCAT Score: Age: <=50 Preoperative SpO2: [...] chart review and guidance on proceeding at [facility]. Per Dr Goetz, patient may proceed as scheduled at [facility] CONSULTS: Anesthesia Consult chart review The Following [...] tablet Take 1 t (more content not included)...NormalWood [facility] 10-45-4003AAXBVbohdo Visit (LOORRM) NOEL PAUL ([id number]) 1990 F UPA Date Time Provider Department 12/12/24 10:00 AM SEAN MATA LOORRMadi During your visit today, we recorded the following information about you: Sean Mata, SHITAL 12/12/2024 10:46 AM Signed [facility] Department of Orthopedics [facility] Orthopedic Surgery Name: Noel Paul [...] Current Outpatient Medications Medication Sig 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 DEXCOM G7 SENSOR eduin [...] Prescriptions as of 12/12/2024 - DEXCOM G7 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 - DEXCOM G7 SENSOR [...] (None) Encounter Status:Closed by CATHY SANTANA on 12/12/24[facility]XR [facility] 3V AP/LAT/OBL RTon 13-36-5033UI FOOT 3V AP/LAT/OBL RT* * *Final Report* [...] unremarkable. IMPRESSION: No fracture or joint dislocation. Sales Facilitator: HERNÁN Transcribe Date/Time: Dec 12 2024 9:37A Dictated by : LUX WILLETT MD This examination was interpreted and the report reviewed and electronically signed by: LUC AVILES MD on Dec 12 2024 11:47AM EST [id number] Lake Joint Township District Memorial HospitalXR Foot - right AP and Lateral and obliqueon 75-68-8599DFTMBPINRG: No fracture or joint dislocation. Sales Facilitator: PSCB Transcribe Date/Time: Dec 12 2024 9:37A [...] Soft tissues appear unremarkable. DIVISION OF RADIOLOGYProvider, [facility] [place] - 12/12/2024 * * *Final Report* * [...] IMPRESSION IMPRESSION: No fracture or joint dislocation. Sales Facilitator: HERNÁN Transcribe Date/Time: Dec 12 2024 9:37A Dictated by : LUX WILLETT MD This examination was interpreted and the report reviewed and electronically signed by: LUC AVILES MD on Dec 12 2024 11:47AM EST [facility] HospitalRadiology Study observation (narrative)[facility] HospitalXR Foot - right AP and Lateral and obliqueOrdered By: Ccf Provider on 59-40-3838Zmrplrgiq Rnntqv35te 03-36-262106Jfitz with patient and let her know that per Dr. Her she can bring the disc in and he will take a look at the images and let her know.[facility]36on 58-66-567807Hiaxphi would like to know if she can get in earlier than her rescheduled appt since she had to cancel. Patient would like to drop off her MRI results sooner than her appt as well. Please advise at [phone] of [facility] Medical CenterTelephone on [phone] Noel Paul 1990 F Date Provider Department Center 12/03/2024 TIMBO LONG MP ORTHO MPORTHO No family history on file Reason for Visit and Comments: Appointment [375][facility]36on 95-44-551880AGE with patient that she will need to bring disc in. Scheduled patient for Tuesday12/03/24 at 10:30 amNCleveland Clinic Children's Hospital for Rehabilitation36Patient would like to know if she needs to make an appointment to bring in her MRI results or if you have received them? Rv Technician does not see them in the chart. Please advise at [phone] of [facility] Medical CenterOffice Visiton 48-55-9959Ssqsxy-up [id number] Noel Paul 1990 F Date Provider Department Center 11/26/2024 KAT VIGIL MP ORTHO MPORTHO No family history on file Level of Service:38961 [place] OFFICE/OUTPATIENT NEW LOW MDM 30 MINUTES (GC) Reason for Visit and Comments: Pain [136][facility]36on 37-84-951752PQJ to confirm apptNormalUniversity of OakBend Medical Centerurgical Pathology Reporton 08-32-6301Vhtpkymb Pathology ReportMercy Health – The Jewish Hospital [address] [place] [address]- Surgical Pathology Report Collected Date/Time: 09/05/2024 08:32 [...] CHANGE IN DIAGNOSIS. Addition of clinical information only.[facility] Fairview HospitalComment on above:Performed By: #### [id number] #### [facility] [address] [place], [place] [address]Fipngqlm Pathology Reporton 70-20-8128Quupgnfg Pathology Report [facility] [address] [place] [address]- Surgical Pathology Report Collected Date/Time: 09/05/2024 08:32 [...] Description Microscopic examination performed unless gross only specified.[facility] Fairview HospitalComment on above:Performed By: #### [id number] #### [facility] [address] [place] [address]Cokpchy [Mass/volume] in Serum or PlasmaOrdered By: Sean Ruano on 50-83-0092Mdtlmrf [Mass/Vol]8.8 mg/dL8.6-10.3FAccess Hospital DaytonCarbon dioxide, total [Moles/volume] in Serum or PlasmaOrdered By: Sean Ruano on 55-81-3328OS7 [Moles/Vol]27.3 mmol/L21.0-31.0[facility] Medical CenterChloride [Moles/volume] in Serum or PlasmaOrdered By: Sean Ruano on 20-06-9263Slawmctk [Moles/Vol]105 mmol/F99-035GkdiubljzUniversity Hospitals Tripoint Medical CenterCreatinine [Mass/volume] in Serum or PlasmaOrdered By: Sean Ruano on 15-27-5573Qymstaiwtr [Mass/Vol]0.66 mg/dL0.60-1.20[facility] Medical CenterGlucose Glucometer (BldC) [Mass/Vol]Ordered By: Pato Avelar on 98-44-7059Utkgxjt [Mass/Vol]106 mg/dLUniversity Hospitals Tripoint Medical Center Comment on above:Random Glucose Reference Range is dependent on time and content of last meal. Glucose of more than 200 mg/dL in a nonstressed, ambulatory subject supports the diagnosis of Diabetes Mellitus.Glucose [Mass/volume] in Serum or PlasmaOrdered By: Sean Ruano on 29-51-7513Mdeaksf [Mass/Vol]107 mg/bV05-625MzsfxsgjgUniversity Hospitals Tripoint Medical CenterComment on above:ADA recommended reference rangeRandom Glucose Reference Range is dependent on time and content of last meal. Glucose of more than 200 mg/dL in a nonstressed, ambulatory subject supports the diagnosisof Diabetes Mellitus.HCG ( test) IA.rapid Ql (U)Ordered By: Sean Runao on 30-00-1969XSN ( test) Ql (U) NegativeUniversity Hospitals Tripoint Medical CenterNo Panel InformationOrdered By: Pato Avelar on 39-84-7222Hvomdlj Glucose CommentGlu2: cleaned meterUniversity Hospitals Tripoint Medical CenterNo Panel InformationOrdered By: Sean Runao on 68-41-7121Ltxosrwru GFR (CKD-EPI)> 60.0 mL/MinUniversity Hospitals Tripoint Medical Center Pharmacy Creatinine Clearance (Xogl808.75[facility] Potassium [Moles/volume] in Serum or PlasmaOrdered By: Sean Ruano on 29-56-8476Ptwtqvojw [Moles/Vol]3.8 mmol/L3.5-5.1FMemorial Health System Marietta Memorial Hospitalerum or plasma anion gap determinationOrdered By: Sean Ruano on 98-18-1369Dhwfb gap [Moles/Vol]9.5 mmol/L6.0-15.0Wilson Healthodium [Moles/volume] in Serum or PlasmaOrdered By: Sean Ruano on 53-46-9113Lymnqc [Moles/Vol]138 mmol/Q720-012LdoifdmhoUniversity Hospitals Tripoint Medical Center Urea nitrogen [Mass/volume] in Serum or PlasmaOrdered By: Sean Ruano on 71-51-8760Gfrj nitrogen [Mass/Vol]17 mg/dL7-25[facility] CBC w/ Auto Diffon 40-87-0322Otapcyqru/100 WBC (Bld)0.5 %Normal0.0-2.0Medina HospitalComment on above:Performed By: #### [id number] #### [facility] [address] [place] [address]Nzlzgtwtp/Leukocytes Auto (Bld) [Pure # fraction]0.1 E9/LNormal 0.0-0.2FOur Lady of Mercy Hospital - AndersonComment on above:Performed By: #### [id number] #### [facility] [address] [place] [address]Yqmijnvwzlp (Bld) [#/Vol]0.3 E9/LNormal0.0-0.5FOur Lady of Mercy Hospital - AndersonComment on above:Performed By: #### [id number] #### [facility] [address] [place] [address]Epiiyfoubiz/100 WBC (Bld)2.9 %Normal0.0-8.0Medina HospitalComment on above:Performed By: #### [id number] #### [facility] [address] [place] [address]Yzlfjpowtpv distribution width (RBC) [Ratio]15.6 %High10.9-14.2 Medina HospitalComment on above:Performed By: #### [id number] #### [facility] [address] [place] [address]28[address]Udeamkeboy (Bld) [Volume fraction]39.9 %Udihdw38.0-46.0[facility]ina HospitalComment on above:Performed By: #### [id number] #### [facility] [address] [place] [address]Agpegiuaoa (Bld) [Mass/Vol]12.8 g/uJJelxlj44.0-16.0[facility]ina HospitalComment on above:Performed By: #### [id number] #### [facility] [address] [place] [address] 78[address]Erkxhhzgvbt (Bld) [#/Vol]2.3 E9/LNormal1.0-4.0[facility]ina HospitalComment on above:Performed By: #### [id number] #### [facility] [address] [place] [address]39[address]Jpnmqsomxcx/100 WBC (Bld)20.9 %Saorgq01.0-50.0Medina HospitalComment on above:Performed By: #### [id number] #### [facility] [address] [place] [address] 323[address]CPN (RBC) [Entitic mass]25.4 pgLow27.0-34.0Medina HospitalComment on above:Performed By: #### [id number] #### [facility] [address] [place] [address] 802[address]DWUC (RBC) [Mass/Vol]32.2 g/gRPifedy99.4-36.0[facility]ina HospitalComment on above:Performed By: #### [id number] #### [facility] [address] [place] [address] 541[address]CJL (RBC) [Entitic vol]79.0 fLLow80.0-100.0Medina HospitalComment on above:Performed By: #### [id number] #### [facility] [address] [place] [address] 270[address]Xwxedsajo (Bld) [#/Vol]0.7 E9/LNormal0.2-1.0[facility]ina HospitalComment on above:Performed By: #### [id number] #### [facility] [address] [place] [address]Wwckrfebyac (Bld) [#/Vol]7.7 E9/LHigh2.0-7.5FOur Lady of Mercy Hospital - AndersonComment on above:Performed By: #### [id number] #### [facility] [address] [place] [address] 680[address]Eepbjuevwhu/100 WBC (Bld)69.3 %Rbctro73.0-75.0Medina HospitalComment on above:Performed By: #### [id number] #### [facility] [address] [place] [address] 923[address]Fpyfdxme mean volume (Bld) [Entitic vol]8.3 fLNormal6.4-10.8 [facility] HospitalComment on above:Performed By: #### [id number] #### [facility] [address], [place] [address]Mxzbucdoo (Bld) [#/Vol]346.0 E9/VXyomox176.0-500.0Medina HospitalComment on above:Performed By: #### [id number] #### [facility] [address] [place] [address] 30[address]CXZ (Bld) [#/Vol]5.1 E12/LNormal4.3-5.9Medina HospitalComment on above:Performed By: #### [id number] #### [facility] [address] [place] [address] 25[address]MXW corrected for nucl RBC Auto (Bld) [#/Vol]11.1 E9/LHigh 4.0-11.0Medina HospitalComment on above:Performed By: #### [id number] #### [facility] [address] [place] [address]Igsccaz for Treatmenton 73-88-3595Gblwtvt for Treatment [id number]#1.00TIFFNormalMedina HospitalHEMATOLOGYOrdered By: SYSTEM SYSTEM on 16-77-0506Ewcekfslx/100 WBC (Bld) 0.5 %Normal0.0 - 2.0 %Remisol HemeBasophils/Leukocytes Auto (Bld) [Pure # fraction]0.1 E9/LNormal0.0 - 0.2 E9/LRemisol HemeEosinophils (Bld) [#/Vol]0.3 E9/LNormal0.0 - 0.5 E9/LRemisol HemeEosinophils/100 WBC (Bld)2.9 %Normal0.0 - 8.0 %Remisol HemeErythrocyte distribution width (RBC) [Ratio]15.6 %High10.9 - 14.2 %Remisol HemeHematocrit (Bld) [Volume fraction]39.9 %Mphiej49.0 - 46.0 % Remisol HemeHemoglobin (Bld) [Mass/Vol]12.8 g/qNQpiyfv25.0 - 16.0 gm/dLRemisol HemeLymphocytes (Bld) [#/Vol]2.3 E9/LNormal1.0 - 4.0 E9/LRemisol Heme Lymphocytes/100 WBC (Bld)20.9 %Vozgmx78.0 - 50.0 %Remisol HemeMCH (RBC) [Entitic mass]25.4 pgLow27.0 - 34.0 pgRemisol HemeMCHC (RBC) [Mass/Vol]32.2 g/dLNormal 31.4 - 36.0 gm/dLRemisol HemeMCV (RBC) [Entitic vol]79.0 fLLow80.0 - 100.0 fL Remisol HemeMonocytes (Bld) [#/Vol]0.7 E9/LNormal0.2 - 1.0 E9/LRemisol Heme Monocytes/100 WBC (Bld)6.4 %Normal4.0 - 14.0 %Remisol HemeNeutrophils (Bld) [#/Vol]7.7 E9/LHigh2.0 - 7.5 E9/LRemisol HemeNeutrophils/100 WBC (Bld)69.3 % Tqvqck85.0 - 75.0 %Remisol HemePlatelet mean volume (Bld) [Entitic vol]8.3 fL Normal6.4 - 10.8 fLRemisol HemePlatelets (Bld) [#/Vol]346.0 E9/SQbhxle038.0 - 500.0 E9/LRemisol HemeRBC (Bld) [#/Vol]5.1 E12/LNormal4.3 - 5.9 E12/LRemisol HemeWBC corrected for nucl RBC Auto (Bld) [#/Vol]11.1 E9/LHigh4.0 - 11.0 E9/L Remisol HemePhysician Orderon 05-39-9076Huqwhdjgg Order [id number]#1.00[facility] HospitalGLYCOHEMOGLOBIN A1Con 52-75-3117QTH RECOMMENDATIONSEE BELOWNoWooster Community HospitalComment on above:Result Comment: ADA RECOMMENDED LIMIT 4.0 - 6.0 ADA THERAPEUTIC TARGET < 7.0 ACTION SUGGESTED > 7.0Performed By: #### A1C #### [facility] [address] [address] [address] Benito DupreeGlucose [Mass/Vol]105 mg/dLNoWooster Community HospitalComment on above:Performed By: #### A1C #### [facility] [address] [address] [address] Benito DupreeHbA1c (Bld) [Mass fraction]5.3 %Normal4.5-6.2The [facility] - DublinComment on above:Performed By: #### A1C #### [facility] [address] [place] [address] Dr. Benito Bartonvid-19 PCR (CVDTB)on 48-41-2642GHFT-CoV-2 (COVID-19) RNA MUKUND+probe Ql (Unsp spec)Not detectedNormalNOT DETECTEDThe [facility] Comment on above:Result Comment: This test is not yet approved or cleared by the [place] FDA. When there are no FDA-approved or cleared tests available, and other criteria are met, FDA can make tests available under an emergency access mechanism called an Emergency Use Authorization (EUA). The EUA for this test is supported by the [place] of Health and Human Service's (HHS's) declaration [...] consistent with SARS-CoV-2.Performed By: #### CVDTBH #### [facility] [address] [place] [address] Dr. Benito Johnson AND B AGon 95-99-8779KMWCUCKFYMIGZ [facility] on above:Result Comment: Negative for Flu A protein angiten. Infection due to Flu A cannot be ruled out. FluA angiten in the sample may be below the detection limit of the test.Performed By: #### INFLUAB #### [facility] [address] [place] [address] Dr. Benito DupreeINFLUBNEGHSEE [facility] on above: Result Comment: Negative for Flu B protein antigen. Infection due to Flu B cannot be ruled out. FluB antigen in the sample may be below the detection limit of the test.Performed By: #### INFLUAB #### [facility] [address] [place] [address] Dr. Benito Johnson AGNegativeNormalNEGATIVE SEE COMMENTThe [facility] on above:Performed By: #### INFLUAB #### [facility] [address] [place] [address] Dr. Benito Saucedo AGNegativeNormalNEGATIVE SEE COMMENTThe [facility] on above:Performed By: #### INFLUAB #### [facility] [address] [place] [address] Dr. Benito DupreeGLYCOHEMOGLOBIN A1Con 84-02-4958LMN RECOMMENDATIONSEE BELOWMansfield Hospital on above:Result Comment: ADA RECOMMENDED LIMIT 4.0 - 6.0 ADA THERAPEUTIC TARGET < 7.0 ACTION SUGGESTED > 7.0Performed By: #### A1C #### [facility] [address] [place] [address] Dr. Benito DupreeGlucose [Mass/Vol]143 mg/dLDayton Osteopathic Hospital on above:Performed By: #### A1C #### [facility] [address] [place] [address] Dr. Benito DupreeHbA1c (Bld) [Mass fraction]6.6 %Critically high4.5-6.2The Ankita HospitalComment on above:Performed By: #### A1C #### [facility] [address] [address] [address] Benito DupreeLIPID PROFILEon 89-45-3833ACVS-HDL RATIO NORMSKing's Daughters Medical Center OhioComment on above:Result Comment: 3.3 - 4.4 LOW RISK 4.4 - 7.1 AVERAGE RISK 7.1 - 11.0 MODERATE RISK >11.0 HIGH RISKPerformed By: #### INFLUAB #### [facility] [address] [address] [address] Benito DupreeCholesterol [Mass/Vol]154 mg/dLNormal<=200[facility] Comment on above:Performed By: #### INFLUAB #### [facility] [address] [place] [address] Dr. Benito DupreeCholesterol in HDL [Mass/Vol]29 mg/dLCritically urn64-61AooDetwiler Memorial HospitalComment on above:Performed By: #### INFLUAB #### [facility] [address] [address] [address] Benito DupreeCholesterol in LDL [Mass/Vol]98.2 mg/dLChildren's Hospital for RehabilitationComment on above:Performed By: #### INFLUAB #### [facility] [address] [place] [address] Dr. Benito DupreeCholesterol.total/Cholesterol in HDL [Mass ratio]5.3 {ratio} NormalDetwiler Memorial HospitalComment on above:Performed By: #### INFLUAB #### [facility] [address] [place] [address] Dr. Benito DupreeHDL NORMAL> or = 60 mg/dl - LOW CARDIOVASCULAR RISK <40 mg/dl - HIGH CARDIOVASCULAR RISKChildren's Hospital for RehabilitationComment on above:Performed By: #### INFLUAB #### [facility] [address] [place] [address] Dr. Benito DupreeLDL CALC NORMALSEE Cleveland ClinicComment on above:Result Comment: <100 mg/dl OPTIMAL 100 - 129 mg/dl NEAR OR ABOVE OPTIMAL 130 - 159 mg/dl BORDERLINE HIGH 160 - 189 mg/dl HIGH >190 mg/dl VERY HIGH Performed By: #### INFLUAB #### [facility] [address] [place] [address] Dr. Benito DupreeTriglyceride [Mass/Vol]134 mg/dLNormal<=150The [facility] Comment on above:Performed By: #### INFLUAB #### [facility] [address] [place] [address] Dr. Benito DupreeVLDL CALC26.8 mg/dLNormalThe [facility] DublinComment on above: Performed By: #### INFLUAB #### [facility] [address] [place] [address] Dr. Benito DupreeINSULINon [id number] uIU/mLNormal2.6-24.9The [facility] DublinComment on above:Performed By: #### INFLUAB #### [facility] [address] [place] [address] Dr. Benito DupreeT4, T3U, FTI LABCORPon [id number] Thyroxine Index2.6Normal 1.2-4.9The [facility] DublinComment on above:Performed By: #### THYLC #### [facility] [address] [place] [address] Dr. Benito DupreeT3 Akbahi73 %Pxjbcm36-25Nsm [facility] DublinComment on above: Performed By: #### THYLC #### [facility] [address] [place] [address] Dr. Benito DupreeT4 [Mass/Vol]8.8 ug/dLNormal4.5-12.0The [facility] DublinComment on above:Performed By: #### THYLC #### [facility] [address] [place] [address] Dr. Benito DupreeCBC AUTO DIFFon [id number] #0.1 103/ulNormal0.0-0.1The [facility] DublinComment on above:Performed By: #### INFLUAB #### [facility] [address] [place] [address] Dr. Benito DupreeBasophils/100 WBC (Bld)0.8 %Normal0.2-2.0The [facility] Comment on above:Performed By: #### INFLUAB #### [facility] [address] [place] [address] Dr. Benito Simon #0.3 103/ulNormal0.0-0.7The [facility] DublinComment on above: Performed By: #### INFLUAB #### [facility] [address] [place] [address] Dr. Benito Buschosinophils/100 WBC (Bld)2.8 %Normal0.9-7.0The [facility] Comment on above:Performed By: #### INFLUAB #### [facility] [address] [place] [address] Dr. Benito Buschrythrocyte distribution width (RBC) [Ratio]15.4 %Critically high 11.0-15.0The [facility] DublinComment on above:Performed By: #### INFLUAB #### [facility] [address] [place] [address] Dr. Benito DupreeHematocrit (Bld) [Volume fraction]43.7 %Cavofv26.0-48.0The [facility] DublinComment on above:Performed By: #### INFLUAB #### [facility] [address] [place] [address] Dr. Benito DupreeHemoglobin (Bld) [Mass/Vol]14.2 g/gPCabkpl84.0-16.0The [facility] DublinComment on above:Performed By: #### INFLUAB #### [facility] [address] [place] [address] Dr. Benito Reyes #0.08 10e3/ulCritically high0.00-0.03The [facility] Comment on above:Performed By: #### INFLUAB #### [facility] [address] [place] [address] Dr. Benito Reyes %0.9 %Critically high0.0-0.5The [facility] DublinComment on above:Performed By: #### INFLUAB #### [facility] [address] [place] [address] Dr. Benito Rasheed #2.3 103/ulNormal1.2-3.8The [facility] DublinComment on above:Performed By: #### INFLUAB #### [facility] [address] [place] [address] Dr. Benito Alvarezhocytes/100 WBC (Bld)24.3 %Wlfeya17.5-60.0The [facility] DublinComment on above:Performed By: #### INFLUAB #### [facility] [address] [place] [address] Dr. Benito Ordoñez DIFF REQNONormalThe [facility] DublinComment on above: Performed By: #### INFLUAB #### [facility] [address] [place] [address] Dr. Benito Rowe (RBC) [Entitic mass]26.1 pgCritically low26.7-34.0The [facility] DublinComment on above:Performed By: #### INFLUAB #### [facility] [address] [place] [address] Dr. Benito Rowe (RBC) [Mass/Vol]32.5 g/kBVvkbja72.9-35.2The [facility] DublinComselect [facility] on above:Performed By: #### INFLUAB #### [facility] [address] [place] [address] Dr. Benito Rowe (RBC) [Entitic vol]80.2 fLCritically low81.0-99.0The [facility] DublinComment on above:Performed By: #### INFLUAB #### [facility] [address] [place] [address] Dr. Benito Guajardo #0.5 103/ulNormal0.3-0.8The [facility] DublinComselect [facility] on above:Performed By: #### INFLUAB #### [facility] [address] [place] [address] Dr. Benito Beverlyocytes/100 WBC (Bld)5.2 %Normal1.7-12.0The [facility] Comment on above:Performed By: #### INFLUAB #### [facility] [address] [place] [address] Dr. Benito Gotti #6.1 103/ulNormal1.4-6.5The [facility] DublinComment on above:Performed By: #### INFLUAB #### [facility] [address] [place] [address] Dr. Benito Badilloutrophils/100 WBC (Bld)66.0 %Ucrqph72.0-75.0The [facility] DublinComment on above:Performed By: #### INFLUAB #### [facility] [address] [place] [address] Dr. Benito Moralez mean volume (Bld) [Entitic vol]9.9 fLNormal9.5-13.5The [facility] DublinComment on above:Performed By: #### INFLUAB #### [facility] [address] [place] [address] Dr. Benito DupreePLT291 103/xeYuxsfe171-299Blw [facility] DublinComment on above: Performed By: #### INFLUAB #### [facility] [address] [place] [address] Dr. Benito DupreeRBC5.45 106/ulCritically high4.20-5.40[facility] Comment on above:Performed By: #### INFLUAB #### [facility] [address] [place] [address] Dr. Benito DupreeWBC9.3 103/ulNormal4.0-11.0The [facility] DublinComment on above: Performed By: #### INFLUAB #### [facility] [address] [place] [address] Dr. Benito Quick LDLon [id number] in LDL [Mass/Vol]50 mg/dL NormalThe [facility] DublinComment on above:Performed By: #### THYLC #### [facility] [address] [place] [address] Dr. Benito SpiveyDL NORMALSEE [facility]Com[facility] on above: Result Comment: <100 mg/dl OPTIMAL 100 - 129 mg/dl NEAR OR ABOVE OPTIMAL 130 - 159 mg/dl BORDERLINE HIGH 160 - 189 mg/dl HIGH >190 mg/dl VERY HIGHPerformed By: #### THYLC #### [facility] [address] [place] [address] Dr. Benito DupreeGLYCOHEMOGLOBIN A1Con [id number] RECOMMENDATIONSEE BELOWMercy Health Allen HospitalComselect specialty hospital-[facility] on above:Result Comment: ADA RECOMMENDED LIMIT 4.0 - 6.0 ADA THERAPEUTIC TARGET < 7.0 ACTION SUGGESTED > 7.0Performed By: #### A1C #### [facility] [address] [place] [address] Dr. Benito DupreeGlucose [Mass/Vol]332 mg/dLChildren's Hospital for RehabilitationComselect specialty hospital-[facility] on above:Performed By: #### A1C #### [facility] [address] [place] [address] Dr. Benito DupreeHbA1c (Bld) [Mass fraction]13.2 %Critically high4.5-6.2[facility] on above:Performed By: #### A1C #### [facility] [address] [place] [address] Dr. Benito Segovia [id number] [Mass/Vol]53.0 ug/fXGxwkno90.0-170.0[facility] on above:Performed By: #### INFLUAB #### [facility] [address] [place] [address] Dr. Benito DupreeLIPID PROFILEon [id number]-HDL RATIO NORMSEE [facility]Comselect [facility] on above:Result Comment: 3.3 - 4.4 LOW RISK 4.4 - 7.1 AVERAGE RISK 7.1 - 11.0 MODERATE RISK >11.0 HIGH RISKPerformed By: #### THYLC #### [facility] [address] [place] [address] Dr. Benito DupreeCholesterol [Mass/Vol]260 mg/dLCritically high<=200The [facility] HospitalComment on above:Performed By: #### THYLC #### [facility] [address] [place] [address] Dr. Benito DupreeCholesterol in HDL [Mass/Vol]23 mg/dLCritically eds76-89Chr [facility] DublinComment on above:Performed By: #### THYLC #### [facility] [address] [place] [address] Dr. Benito Esquivelesterol.total/Cholesterol in HDL [Mass ratio]11.3 {ratio} NormalDetwiler Memorial HospitalComment on above:Performed By: #### THYLC #### [facility] [address] [place] [address] Dr. Benito Hall NORMAL> or = 60 mg/dl - LOW CARDIOVASCULAR RISK <40 mg/dl - HIGH CARDIOVASCULAR RISKNoWooster Community HospitalComment on above:Performed By: #### THYLC #### [facility] [address] [place] [address] Dr. Benito DupreeTriglyceride [Mass/Vol]1711 mg/dLCritically high<=150The [facility] DublinComment on above:Performed By: #### THYLC #### [facility] [address] [place] [address] Dr. Benito DupreeVLDL KEPX196.2 mg/dLNoWooster Community HospitalComselect specialty hospital-[facility] on above: Performed By: #### THYLC #### [facility] [address] [place] [address] Dr. Benito DupreePROF 14(COMP METB)on [id number] [Mass/Vol]3.2 g/dL Critically low3.4-5.0[facility] HospitalComment on above:Performed By: #### THYLC #### [facility] [address] [place] [address] Dr. Benito DupreeAlbumin/Globulin [Mass ratio]0.7 {ratio}NormalThe [facility] DublinComment on above:Performed By: #### THYLC #### [facility] [address] [place] [address] Dr. Yilan ChangALP [Catalytic activity/Vol]92 U/FQefqti21-907Uwj [facility] DublinComment on above:Performed By: #### THYLC #### [facility] [address] [place] [address] Dr. Benito BaxterT [Catalytic activity/Vol]41 U/SUcodhf51-19Wuc [facility] DublinComment on above:Performed By: #### THYLC #### [facility] [address] [place] [address] Dr. Benito Ambroseon gap [Moles/Vol]14.1 mmol/LNormalDetwiler Memorial Hospital Comment on above:Performed By: #### THYLC #### [facility] [address] [place] [address] Dr. Benito DupreeAST [Catalytic activity/Vol]16 U/LGtyrqn73-76Sin [facility] DublinComment on above:Performed By: #### THYLC #### [facility] [address] [place] [address] Dr. Benito DupreeBilirubin [Mass/Vol]0.9 mg/dLNormal0.2-1.0[facility] Comment on above:Performed By: #### THYLC #### [facility] [address] [place] [address] Dr. Benito DupreeCalcium [Mass/Vol]9.1 mg/dLNormal8.5-10.1[facility] Comment on above:Performed By: #### THYLC #### [facility] [address] [place] [address] Dr. Benito DupreeChloride [Moles/Vol]97 mmol/LCritically wgq01-997EniDetwiler Memorial HospitalComment on above:Performed By: #### THYLC #### [facility] [address] [place] [address] Dr. Benito DupreeCO2 [Moles/Vol]24.9 mmol/DVyamzp43.0-32.0The [facility] Comment on above:Performed By: #### THYLC #### [facility] [address] [place] [address] Dr. Benito DupreeCreatinine [Mass/Vol]0.67 mg/dLNormal0.55-1.02The [facility] DublinComment on above:Performed By: #### THYLC #### [facility] [address] [place] [address] Dr. Benito BuschGFR-AF BENINESE>60Normal>=60The [facility] DublinComment on above:Performed By: #### THYLC #### [facility] [address] [place] [address] Dr. Benito BuschGFR-NON AF BENINESE>60Normal>=60The [facility] DublinComment on above:Performed By: #### THYLC #### [facility] [address] [place] [address] Dr. Benito DupreeGlobulin (S) [Mass/Vol]4.6 g/dLNormalThe [facility] DublinComment on above:Performed By: #### THYLC #### [facility] [address] [place] [address] Dr. Benito DupreeGlucose [Mass/Vol]402 mg/dLCritically yyez39-934Ozk [facility] DublinComment on above:Performed By: #### THYLC #### [facility] [address] [place] [address] Dr. Benito DupreePotassium [Moles/Vol]4.0 mmol/LNormal3.5-5.1The [facility] Comment on above:Performed By: #### THYLC #### [facility] [address] [place] [address] Dr. Benito DupreeProtein [Mass/Vol]7.8 g/dLNormal6.4-8.2The [facility] Comment on above:Performed By: #### THYLC #### [facility] [address] [place] [address] Dr. Benito DupreeSodium [Moles/Vol]132 mmol/LCritically zqj268-470Dhf [facility] DublinComment on above:Performed By: #### THYLC #### [facility] [address] [place] [address] Dr. Benito DupreeUrea nitrogen [Mass/Vol]10.0 mg/dLNormal7.0-18.0The [facility] DublinComment on above:Performed By: #### THYLC #### [facility] [address] [place] [address] Dr. Benito Belle nitrogen/Creatinine [Mass ratio]14.9 mg/mgNoWooster Community HospitalComment on above:Performed By: #### THYLC #### [facility] [address] [place] [address] Dr. Benito Butts 66-08-3691PXQ5.676 uIU/mLNormal0.358-3.740The [facility] DublinComment on above:Performed By: #### THYLC #### [facility] [address] [place] [address] Dr. Benito DupreeVITAMIN D 25 OHon 40-07-5916UBW D 25-OH13.9 ng/mLNormalThe [facility] DublinComment on above:Performed By: #### INFLUAB #### [facility] [address] [place] [address] Dr. Benito Sanchez RANGESSEE BELOWChildren's Hospital for RehabilitationComment on above: Result Comment: <20 ng/mL Vit D deficient 20 - <30 ng/mL Vit D insufficient 30 - 100 ng/mL Vit D sufficient >100 ng/mL Potential ToxicityPerformed By: #### INFLUAB #### [facility] [address] [place] [address] Dr. Benito DupreeAMYLASEon 99-53-4566Ghvsiaq [Catalytic activity/Vol]29 U/LNormal 25-115The [facility] DublinComment on above:Performed By: #### INFLUAB #### [facility] [address] [place] [address] Dr. Benito Cerna AUTO DIFFon [id number] #0.1 103/ulNormal0.0-0.1The [facility] DublinComment on above:Performed By: #### INFLUAB #### [facility] [address] [place] [address] Dr. Benito DupreeBasophils/100 WBC (Bld)0.5 %Normal0.2-2.0The [facility] Comment on above:Performed By: #### INFLUAB #### [facility] [address] [place] [address] Dr. Benito Simon #0.3 103/ulNormal0.0-0.7The [facility] DublinComment on above: Performed By: #### INFLUAB #### [facility] [address] [place] [address] Dr. Benito Buschosinophils/100 WBC (Bld)2.0 %Normal0.9-7.0The [facility] Comment on above:Performed By: #### INFLUAB #### [facility] [address] [place] [address] Dr. Benito Buschrythrocyte distribution width (RBC) [Ratio]15.3 %Critically high 11.0-15.0The [facility] DublinComment on above:Performed By: #### INFLUAB #### [facility] [address] [place] [address] Dr. Benito DupreeHematocrit (Bld) [Volume fraction]41.5 %Rgzprv02.0-48.0The [facility] DublinComment on above:Performed By: #### INFLUAB #### [facility] [address] [place] [address] Dr. Benito DupreeHemoglobin (Bld) [Mass/Vol]12.7 g/sFAtlkjr31.0-16.0The [facility] DublinComment on above:Performed By: #### INFLUAB #### [facility] [address] [place] [address] Dr. Benito Reyes #0.06 10e3/ulCritically high0.00-0.03The [facility] Comment on above:Performed By: #### INFLUAB #### [facility] [address] [place] [address] Dr. Benito Reyes %0.4 %Normal0.0-0.5The [facility] DublinComment on above: Performed By: #### INFLUAB #### [facility] [address] [address] [address] Benito Rasheed #1.9 103/ulNormal1.2-3.8The [facility] DublinComment on above:Performed By: #### INFLUAB #### [facility] [address] [place] [address] Dr. Benito Hendersonmphocytes/100 WBC (Bld)13.9 %Critically low20.5-60.0The [facility] DublinComment on above:Performed By: #### INFLUAB #### [facility] [address] [place] [address] Dr. Benito YusufUAL DIFF REQNONormalThe [facility] DublinComment on above: Performed By: #### INFLUAB #### [facility] [address] [place] [address] Dr. Benito Escobar (RBC) [Entitic mass]24.7 pgCritically low26.7-34.0The [facility] DublinComment on above:Performed By: #### INFLUAB #### [facility] [address] [place] [address] Dr. Benito Rowe (RBC) [Mass/Vol]30.6 g/iCDmkaub55.9-35.2The [facility] DublinComment on above:Performed By: #### INFLUAB #### [facility] [address] [place] [address] Dr. Benito Rowe (RBC) [Entitic vol]80.6 fLCritically low81.0-99.0The [facility] DublinComment on above:Performed By: #### INFLUAB #### [facility] [address] [place] [address] Dr. Benito Guajardo #0.5 103/ulNormal0.3-0.8The [facility] DublinComment on above:Performed By: #### INFLUAB #### [facility] [address] [place] [address] Dr. Benito Beverlyocytes/100 WBC (Bld)4.0 %Normal1.7-12.0The [facility] Comment on above:Performed By: #### INFLUAB #### [facility] [address] [place] [address] Dr. Benito BadilloUT #10.6 103/ulCritically high1.4-6.5The [facility] Comment on above:Performed By: #### INFLUAB #### [facility] [address] [place] [address] Dr. Benito Badilloutrophils/100 WBC (Bld)79.2 %Critically high43.0-75.0The [facility] DublinComment on above:Performed By: #### INFLUAB #### [facility] [address] [place] [address] Dr. Benito DupreePlatelet mean volume (Bld) [Entitic vol]9.3 fLCritically low 9.5-13.5The [facility] DublinComment on above:Performed By: #### INFLUAB #### [facility] [address] [place] [address] Dr. Benito DupreePLT391 103/azQrdwcf518-929Mmi [facility] DublinComment on above: Performed By: #### INFLUAB #### [facility] [address] [place] [address] Dr. Benito DupreeRBC5.15 106/ulNormal4.20-5.40The [facility] DublinComment on above:Performed By: #### INFLUAB #### [facility] [address] [place] [address] Dr. Benito DupreeWBC13.4 103/ulCritically high4.0-11.0The [facility] DublinComment on above:Performed By: #### INFLUAB #### [facility] [address] [place] [address] Dr. Benito DupreeCT ABD/PELV W CONon [id number] ABD/PELV W CONEXAMINATION: CT ABD/PELV W CON [...] Electronically authenticated by: WESTLEY JHA Date: 2022-06-01 14:59[facility] URINE PROFILEon [id number] Ql (U)NegativeNormal NEGATIVEDetwiler Memorial HospitalComment on above:Performed By: #### MARYA VILLEGASR #### [facility] [address] [place] [address] Dr. Benito Reyna (U)SL CLOUDYAbnormalCLEARThUpper Valley Medical CenterComment on above:Performed By: #### MARYA VILLEGASR #### [facility] [address] [address] [address] Benito Morales (U)YELLOWNormalYELLOWDetwiler Memorial HospitalComment on above: Performed By: #### MARYA VILLEGASR #### [facility] [address] [address] [address] Benito Chambers micrscopic examination will be performed if indicated. NormalDetwiler Memorial HospitalComment on above:Performed By: #### MARYA VILLEGASR #### [facility] [address] [address] [address] Benito DupreeGlucose Ql (U)NegativeNormalNEGATIVEThe Ankita HospitalComment on above:Performed By: #### NELLY, ERUR #### [facility] [address] [address] [address] Benito DupreeHemoglobin Ql (U)LARGEAbnormalNEGATIVEDetwiler Memorial Hospital Comment on above:Performed By: #### NELLY, ERUR #### [facility] [address] [address] [address] Benito Camones Ql (U)NegativeNormalNEGATIVEMetrohealth Main Campus Medical Center HospitalComment on above:Performed By: #### NELLY, ERUR #### [facility] [address] [address] [address] Benito DupreeLEUKOCYTESNegativeNormalNEGATIVEThe Mountain Top HospitalComment on above:Performed By: #### NELLY, ERUR #### [facility] [address] [address] [address] Benito DupreeNitrite Ql (U)NegativeNormalNEGATIVEDetwiler Memorial HospitalComment on above:Performed By: #### NELLY ERUR #### [facility] [address] [address] [address] Benito DupreepH (U)5.5 [pH]Normal5-9The [facility] DublinComment on above: Performed By: #### NELLY ERUR #### [facility] [address] [address] [address] Benito DupreeSPEC GRAVITY1.817Qkczmf0.005-<=1.025The [facility] HospitalComment on above:Performed By: #### NELLY, ERUR #### [facility] [address] [address] [address] Benito Reynolds PROTEINTRACENormalNEGATIVE/ TRACEThe Mountain Top HospitalComment on above:Performed By: #### NELLY, ERUR #### [facility] [address] [address] [address] Benito Mcdaniels MICRO INDINDICATEDNormalThe Mountain Top HospitalComment on above: Performed By: #### MARYA VILLEGASR #### [facility] [address] [place] [address] Dr. Benito Espinozabilinogen Qn (U)1.0 {Tuyet'U}/dLNormal0.2 - 1.0The [facility] DublinComment on above:Performed By: #### NELLY ERUR #### [facility] [address] [place] [address] Dr. Benito DupreeLACTATE/LACTIC ACIDon 78-16-8551Dwwwjnm [Moles/Vol]1.1 mmol/L Normal0.4-1.9The [facility] DublinComment on above:Performed By: #### LACT #### [facility] [address] [place] [address] Dr. Benito DupreeLIPASEon 52-77-8112Jdttxb [Catalytic activity/Vol]111.0 U/LNormal 73.0-393.0The [facility] DublinComment on above:Performed By: #### INFLUAB #### [facility] [address] [place] [address] Dr. Benito DupreePREG HCG QUALon 19-75-0738YUAPSIPYN, QUALNegativeNormalNEGATIVE The [facility] DublinComment on above:Performed By: #### PREG #### [facility] [address] [place] [address] Dr. Benito DupreePROF 14(COMP METB)on 15-93-9825Cskvvsw [Mass/Vol]3.6 g/dLNormal 3.4-5.0The [facility] DublinComment on above:Performed By: #### INFLUAB #### [facility] [address] [place] [address] Dr. Benito DupreeAlbumin/Globulin [Mass ratio]0.7 {ratio}NormalThe [facility] DublinComment on above:Performed By: #### INFLUAB #### [facility] [address] [place] [address] Dr. Benito DupreeALP [Catalytic activity/Vol]90 U/FKqiiye89-814Xwa [facility] DublinComment on above:Performed By: #### INFLUAB #### [facility] [address] [address] [address] Benito Cuellar [Catalytic activity/Vol]39 U/CFiwlbh34-97Nhk [facility] DublinComment on above:Performed By: #### INFLUAB #### [facility] [address] [address] [address] Benito DupreeAnion gap [Moles/Vol]13.0 mmol/LNormalThe [facility] Comment on above:Performed By: #### INFLUAB #### [facility] [address] [address] [address] Benito DupreeAST [Catalytic activity/Vol]25 U/BFqhyto95-76Cga [facility] DublinComment on above:Performed By: #### INFLUAB #### [facility] [address] [place] [address] Dr. Benito DupreeBilirubin [Mass/Vol]1.1 mg/dLCritically high0.2-1.0The [facility] DublinComment on above:Performed By: #### INFLUAB #### [facility] [address] [place] [address] Dr. Benito DupreeCalcium [Mass/Vol]9.4 mg/dLNormal8.5-10.1[facility] Comment on above:Performed By: #### INFLUAB #### [facility] [address] [place] [address] Dr. Benito DupreeChloride [Moles/Vol]99 mmol/URpzznb23-852Koo [facility] Comment on above:Performed By: #### INFLUAB #### [facility] [address] [place] [address] Dr. Benito DupreeCO2 [Moles/Vol]27.3 mmol/ERldkrn83.0-32.0The [facility] Comment on above:Performed By: #### INFLUAB #### [facility] [address] [place] [address] Dr. Benito DupreeCreatinine [Mass/Vol]0.87 mg/dLNormal0.55-1.02The [facility] DublinComment on above:Performed By: #### INFLUAB #### [facility] [address] [address] [address] Benito BuschGFR-AF BENINESE>60Normal>=60The [facility] DublinComment on above:Performed By: #### INFLUAB #### [facility] [address] [address] [address] Benito BuschGFR-NON AF BENINESE>60Normal>=60The [facility] DublinComment on above:Performed By: #### INFLUAB #### [facility] [address] [address] [address] Benito DupreeGlobulin (S) [Mass/Vol]4.8 g/dLNormalThe [facility] DublinComment on above:Performed By: #### INFLUAB #### [facility] [address] [place] [address] Dr. Benito DupreeGlucose [Mass/Vol]218 mg/dLCritically wuqf79-274Csx [facility] DublinComment on above:Performed By: #### INFLUAB #### [facility] [address] [place] [address] Dr. Benito DupreePotassium [Moles/Vol]4.1 mmol/LNormal3.5-5.1The [facility] Comment on above:Performed By: #### INFLUAB #### [facility] [address] [place] [address] Dr. Benito DupreeProtein [Mass/Vol]8.4 g/dLCritically high6.4-8.2The [facility] DublinComment on above:Performed By: #### INFLUAB #### [facility] [address] [address] [address] Benito DupreeSodium [Moles/Vol]135 mmol/LCritically prk195-750Coa [facility] DublinComment on above:Performed By: #### INFLUAB #### [facility] [address] [place] [address] Dr. Bentio DupreeUrea nitrogen [Mass/Vol]15.0 mg/dLNormal7.0-18.0The [facility] DublinComment on above:Performed By: #### INFLUAB #### [facility] [address] [address] [address] Benito DupreeUrea nitrogen/Creatinine [Mass ratio]17.2 mg/mgNoMarietta Osteopathic Clinic on above:Performed By: #### INFLUAB #### [facility] [address] [address] [address] Benito Bee MICROSCOPIC ONLYon 59-22-0516AYJIDHUNVWOGRNtbqddinGOCQ SEEN [facility] on above:Performed By: #### NELLY, ERUR #### [facility] [address] [address] [address] Benito Alvaradocttez identified Cx Nom (U)NOT INDICATEDDayton Osteopathic Hospital on above:Performed By: #### NELLY, ERUR #### [facility] [address] [place] [address] Dr. Benito Camargo SEENNormalNONE SEENWexner Medical Center on above:Performed By: #### NELLY, ERUR #### [facility] [address] [address] [address] Benito Kirbyystals LM Nom (Urine sed)NONE SEENNormalNONE SEENWexner Medical Center on above:Performed By: #### NELLY, ERUR #### [facility] [address] [place] [address] Dr. Oliver ChangEpithelial cells LM Ql (Urine sed)MODERATEAbnormalNONE SEEN /RARE [facility] on above:Performed By: #### NELLY, ERUR #### [facility] [address] [place] [address] Dr. Benito RamirezCOUSTRACEAbnormalNONE SEENWexner Medical Center on above:Performed By: #### NELLY, ERUR #### [facility] [address] [address] [address] Benito DupreeNpcixTVC6-8Aecvlzqh1-5NjjWexner Medical Center on above:Performed By: #### NELLY, ERUR #### [facility] [address] [address] [address] Benito DupreeWBC0-2AbnormalNONE SEENDetwiler Memorial HospitalComment on above: Performed By: #### MARYA VILLEGASR #### [facility] [address] [place], [place] [address] Dr. Benito DupreeXR hand RT min 3V*on 77-38-3282SW hand RT min 3V*[facility] [employer] Other XR hand RT min 3V*[facility] [employer] Other XR hand RT min 3V*[address] [place] [address] [employer] Other XR hand RT min 3V*[place], [place] [address]Ouqzw [employer] Other XR hand RT min 3V*[facility] [employer] Other XR hand RT min 3V*[facility] [employer] Other XR hand RT min 3V*Patient: Noel Paul MR#: [id number] [employer] Other XR hand RT min 3V*: 1990 Acct:[id number] [employer] Other XR hand RT min 3V*Age/Sex: 31 / F ADM Date: 03/22/22 [place] [employer] Other XR hand RT min 3V*Loc: XDUCLY Room: Type: [facility] [employer] Other XR hand RT min 3V*Attending Dr: Monique SANDOVAL [place] [employer] Other XR hand RT min 3V*[facility]ing Provider[facility] [employer] Other XR hand RT min 3V*Date of Service: 03/22/22[place] [employer] Other XR hand RT min 3V* XR/XR hand RT min 3V*: Finger pain, rightCincinnati [employer] Other XR hand RT min 3V*Copies to: JOSEMANUEL DiasC [place] [employer] Other XR hand RT min 3V*3 viewsRIGHT hand plain filmCinc[place] [employer] Other XR hand RT min 3V*COMPARISON:[facility] [employer] Other XR hand RT min 3V*HISTORY:Fell going upstairs. RIGHT ring finger injury.[employer] Other XR hand RT min 3V*No fracture, dislocation or focal soft tissue abnormality seen.[employer] Other XR hand RT min 3V* XR/XR hand RT min 3V*[employer] Other XR hand RT min 3V*IMPRESSION:No acute findingsCincinnati [employer] Other XR hand RT min 3V*Impression dictated by: Ta Galvan M.D.03/22/2022 4:[address] [facility] [employer] Other XR hand RT min 3V*Dictation Location: [address] [employer] Other XR hand RT min 3V*Transcribed By: DANIELLE 03/22/22 [facility] [employer] Other XR hand RT min 3V*Dictated By: aT Galvan DO 03/22/[address] [place] [address] [employer] Other XR hand RT min 3V*Signed By:[employer] Other XR hand RT min 3V*03/22/[address] [place] [address] [employer] Other Vital Signs Date TimeVital SignValuePerforming ByqmmakcbAljwktlb69-51-8256 09:58-0400Body ylmhfd882.5 cmPato Avelar DPM Work Phone: [facility] HospitalUlryjtpbcq81-32-8133 09:58-0400Body mass index (BMI) [Ratio]56.7 kg/x8Mwloeunvantonio Avelar DPM Work Phone: [facility] HospitalLmokmfunrx59-97-5941 09:58-0400Body cfmyez601.62 kgNicantonio Avelar DPM Work Phone: [facility] HospitalZkzjqzgxqd95-47-2023 09:58-0400Respiratory rate18 /minNicantonio Avelar DPM Work Phone: [facility] HospitalWkqkzowhps13-78-5931 14:15-0400Body aphjhy260.48 cmPamela Lien LIBRARY CIRCULATION TECHNICIAN-C Work Phone: [phone] [place], [place] 8384108-11-2025 14:15-0400 Body mass index (BMI) [Ratio]62.4 kg/u2Cscuap Lien LIBRARY CIRCULATION TECHNICIAN-C Work Phone: [phone])[phone] [place], [place] 8384108-11-2025 14:15-0400 Body wihuqa217.67 kgPamela Lien LIBRARY CIRCULATION TECHNICIAN-C Work Phone: [phone] [place], [place] 8384108-11-2025 14:15-0400 Diastolic blood ttppanfn46 mm[Hg]Monique Emmanuel LIBRARY CIRCULATION TECHNICIAN-C Work Phone: [phone] [place], [place] 8384108-11-2025 14:15-0400 Heart rate86 /minPamela Lien LIBRARY CIRCULATION TECHNICIAN-C Work Phone: [phone] [place], [place] 8384108-11-2025 14:15-0400 Respiratory rate18 /minPamela Lien LIBRARY CIRCULATION TECHNICIAN-C Work Phone: [phone] [place], [place] 8384108-11-2025 14:15-0400 SaO2% (BldA) [Mass fraction]97 %Moniquegisselle Whitleymer LIBRARY CIRCULATION TECHNICIAN-C Work Phone: 1(753)159-[address] [place], [place] 8384108-11-2025 14:15-0400 Systolic blood kydlyfxy205 mm[Hg]Monique Emmanuel LIBRARY CIRCULATION TECHNICIAN-C Work Phone: [phone])[address] [place], [place] 1568407-20-2025 11:26-0400 Body nsutdfsmcvo86 [degF]Monique Lien LIBRARY CIRCULATION TECHNICIAN-C Work Phone: [phone])[address] [place], [place] 1568407-20-2025 11:26-0400 Diastolic blood zkndmdzo41 mm[Hg]Monique Lien LIBRARY CIRCULATION TECHNICIAN-C Work Phone: [phone])[address] [place], [place] 1568407-20-2025 11:26-0400 Heart rate78 /minPamela Lien LIBRARY CIRCULATION TECHNICIAN-C Work Phone: [phone])[address] [place], [place] 1568407-20-2025 11:26-0400 Respiratory rate20 /minPamela Lien LIBRARY CIRCULATION TECHNICIAN-C Work Phone: [phone])[address] [place], [place] 1568407-20-2025 11:26-0400 SaO2% (BldA) [Mass fraction]93 %Monique Lien LIBRARY CIRCULATION TECHNICIAN-C Work Phone: [phone])[address] [place], [place] 1568407-20-2025 11:26-0400 Systolic blood qbajxuwi911 mm[Hg]Monique Lien LIBRARY CIRCULATION TECHNICIAN-C Work Phone: [phone])[address] [place], [place] 1568407-20-2025 06:00-0400 Body geqfmy396 kgPamela Lien LIBRARY CIRCULATION TECHNICIAN-C Work Phone: [phone] [place], [place] 1568407-19-2025 03:55-0400 Body ipikpc093.48 cmPamela Lien LIBRARY CIRCULATION TECHNICIAN-C Work Phone: [phone])[address] [place], [place] 1568407-19-2025 03:00-0400 Diastolic blood etcvbcfr37 mm[Hg]Monique Lien LIBRARY CIRCULATION TECHNICIAN-C Work Phone: [phone])[address] [place], [place] 1568407-19-2025 03:00-0400 Heart rate80 /minPamela Lien LIBRARY CIRCULATION TECHNICIAN-C Work Phone: [phone] [place], [place] 1568407-19-2025 03:00-0400 Inhaled oxygen flow rate2 L/minPamela Lien LIBRARY CIRCULATION TECHNICIAN-C Work Phone: [phone]07-19-2025 03:00-0400 Respiratory rate18 /minMonique Whitleymer LIBRARY CIRCULATION TECHNICIAN-C Work Phone: [phone] [place], [place] 8384107-19-2025 03:00-0400 SaO2% (BldA) [Mass fraction]98 %Monique Whitleymer LIBRARY CIRCULATION TECHNICIAN-C Work Phone: [phone])365-[address] [place], [place] 8384107-19-2025 03:00-0400 Systolic blood zqgdyrfd690 mm[Hg]Monique Lien LIBRARY CIRCULATION TECHNICIAN-C Work Phone: 1([phone] [place], [place] 8384107-18-2025 22:16-0400 Body taakdk571.48 cmPlorene Whitleymer LIBRARY CIRCULATION TECHNICIAN-C Work Phone: [phone] [place], [place] 8384107-18-2025 22:16-0400 Body myopheyncrs59.9 [degF]Monique Whitleymer LIBRARY CIRCULATION TECHNICIAN-C Work Phone: [phone] [place], [place] 8384107-18-2025 22:16-0400 Body .14 kgMonique Whitleymer LIBRARY CIRCULATION TECHNICIAN-C Work Phone: [phone] [place], [place] 8384104-24-2025 14:16-0400 Body ztrdqe503.5 cmNicholas Brown DPM Work Phone: [phone] [place], [place] [address]Bplqctcssh07-48-7127 14:16-0400Body mass index (BMI) [Ratio]56.7 kg/w1Ozizznsh Brown DPM Work Phone: 1([phone] [place], [place] [address]Xijcznacew87-86-6915 14:16-0400Body twvwbu730.62 kgNicholas Brown DPM Work Phone: [phone] [place], [place] [address]Ikfumncbjq31-62-7484 14:16-0400Respiratory rate16 /minNicholas Brown DPM Work Phone: 1([phone] [place], [place] [address]Uyqazkqznk18-47-4171 09:06-0400Body .5 cmNicholas Brown DPM Work Phone: [phone]-[facility] [address]Awtipwxotk30-79-4836 09:06-0400Body mass index (BMI) [Ratio]56.7 kg/p5Vmahfqsk Brown DPM Work Phone: 1(961)785-[address] [place], [place] [address] 09:06-0400Body zrfdaf272.62 kgPato Avelar DPM Work Phone: [facility] HospitalCkzytfbtor80-69-0949 09:06-0400Respiratory rate16 /Helen Avelar DPM Work Phone: [facility] HospitalShymghsrje41-67-6685 17:00-0400Body .48 cmUniversity [facility]03-11-2025 17:00-0400Body mass index (BMI) [Ratio]59.2 kg/n4KkadgxwraUniversity Hospitals [facility]03-11-2025 17:00-0400Body kwarsxpiosg22.2 [degF][facility]03-11-2025 17:00-0400Body nucfin364.96 kgUniversity Hospitals [facility]03-11-2025 17:00-0400Diastolic blood mm[Hg][facility]03-11-2025 17:00-0400 Heart rate82 /[facility]03-11-2025 17:00-0400 Respiratory rate18 /[facility]03-11-2025 17:00-0400 SaO2% (BldA) [Mass fraction]98 %[facility]03-11-2025 17:00-0400Systolic blood ucbphabp049 mm[Hg][facility] 12-28-2024 09:54-0500Body .5 cmPacc 3 Work Phone: [facility]01-31-2025 09:54-0500Body mass index (BMI) [Ratio]62.06 kg/m2Pacc 3 Work Phone: [phone]01-31-2025 09:54-0500Body temperature 97.39 [degF]Pacc 3 Work Phone: [facility]01-31-2025 09:54-0500Body .9 kgPacc 3 Work Phone: [facility]01-31-2025 09:54-0500Diastolic blood mm[Hg]Pacc 3 Work Phone: [facility]01-31-2025 09:54-0500Heart gpti843 /minPacc 3 Work Phone: [facility]01-31-2025 09:54-0500Respiratory rate 16 /minPacc 3 Work Phone: [facility]01-31-2025 09:54-4990CtT8% (BldA) [Mass fraction]98 %Pacc 3 Work Phone: [facility]01-31-2025 09:54-0500Systolic blood pgnlsigj201 mm[Hg]Pacc 3 Work Phone: [facility]11-27-2024 14:24-0500Body jsylil277.5 cmNicholas Brown DPM Work Phone: [address] [address]Wwirbftusk14-25-4264 14:24-0500Body mass index (BMI) [Ratio]56.7 kg/o6Nszzibff Brown DPM Work Phone: 1(769)187-[address] [place] [address]-27-2024 14:24-0500Body dqbwet320.62 kgNicholas Brown DPM Work Phone: [address] [address]Hqenizdhua78-07-8532 14:24-0500Respiratory rate18 /minNicholas Brown DPM Work Phone: [facility] HospitalXyflztjyrf59-36-7361 14:48-0500Body ksdolq443.5 cmNicholas Brown DPM Work Phone: [address] [address]Sfvalbqwwl33-69-9913 14:48-0500Body mass index (BMI) [Ratio]56.7 kg/u8Dpiucwet Brown DPM Work Phone: [address] [address]Jylyfpihki11-63-7793 14:48-0500Body .62 kgNicholas Brown DPM Work Phone: [address] [address]Bpjuceares63-83-8860 14:48-0500Diastolic blood agcltdfl47 mm[Hg]Pato Avelar DPM Work Phone: 1([phone] [place] [address]11-07-2024 14:48-0500Heart rate82 /min Pato Avelar DPM Work Phone: 1(837)[address] [place] [address]-07-2024 14:48-0500Systolic blood bvorsmlw631 mm[Hg]Pato Avelar DPM Work Phone: [phone] [place], [place] [address]Joixlbcdxk49-65-8699 14:37-0400Body urfgsx492.5 cmPato Avelar DPM Work Phone: 1(528)[address] [place], [place] 3547510-24-2024 14:37-0400Body mass index (BMI) [Ratio]56.7 kg/y1MwalpvkoPato Avelar DPM Work Phone: 1(800)[address] [place] [address]-24-2024 14:37-0400Body edhsbd470.62 kgPato Avelar DPM Work Phone: 1(985)[facility] [place], [place] [address]Ttmzhaeibq69-06-7752 14:37-0400Diastolic blood mm[Hg]Pato Avelar DPM Work Phone: 1(005)[address] [place] [address]-24-2024 14:37-0400Heart rate79 /min Pato Avelar DPM Work Phone: [phone] [place] [address]-24-2024 14:37-0400Systolic blood zvgoycwh272 mm[Hg]Pato Avelar DPM Work Phone: 1(870)[address] [place], [place] 3547510-17-2024 14:46-0400Body ihsihv716.5 cmPato Avelar DPM Work Phone: 1(372)[address] [place] [address]-17-2024 14:46-0400Body mass index (BMI) [Ratio]56.7 kg/q7RaxdupthPato Avelar DPM Work Phone: 1(701)[address] [place] [address]-17-2024 14:46-0400Body rgbuhk623.62 kgPato Avelar DPM Work Phone: 1(667)031-[address] [place] [address]-17-2024 14:46-0400Diastolic blood fgouxyfr13 mm[Hg]Pato Avelar DPM Work Phone: 1(814)[address] [place], [place] [address]24 14:46-0400Heart rate85 /min Pato Avelar DPM Work Phone: 1(048)338-[address] [place] [address]-17-2024 14:46-0400Systolic blood mm[Hg]Pato Rodo DPM Work Phone: 1(629)340-[address] [place], [place] [address]Sibyhpishz75-99-1863 14:58-0400Body cuxbae514.5 cmPato Rodo DPM Work Phone: 1([phone] [place], [place] [address]Qjafnsnflc60-05-0503 14:58-0400Body mass index (BMI) [Ratio]56.7 kg/a6RwlbaiomPato Avelar DPM Work Phone: 1(173)548-[address] [place] [address]-03-2024 14:58-0400Body jzxypk332.62 kgPato Rodo DPM Work Phone: 1(046)171-[address] [place] [address]-03-2024 14:58-0400Diastolic blood jinopklc31 mm[Hg]Pato Avelar DPM Work Phone: 1([phone] [place], [place] [address]Lnkvovxhjj15-34-7555 14:58-0400Heart rate75 /min Pato Avelar DPM Work Phone: 1(216)695-[address] [place] [address]-03-2024 14:58-0400Respiratory rate18 /minPato Rodo DPM Work Phone: 1(875)069-[address] [place], [place] [address]Waawimdedw65-79-6415 14:58-0400Systolic blood jyomdfxj817 mm[Hg]Pato Avelar DPM Work Phone: 1([phone])295-[address] [place], [place] [address]Ffyvpieevd17-14-8252 14:52-0400Body clteqs379.5 cmPato Avelar DPM Work Phone: [phone] [place] [address]-05-2024 14:52-0400Body mass index (BMI) [Ratio]56.7 kg/e2UumcwuouPato Avelar DPM Work Phone: [place] [address]Ppxlnrdscg10-45-6448 14:52-0400Body vgbfby547.62 kgPato Avelar DPM Work Phone: 1(355)194-[address] [place] [address]-05-2024 14:52-0400Diastolic blood kfvxlaqt17 mm[Hg]Patoanuj Avelar DPM Work Phone: [facility] HospitalBxjqycoydu17-25-4621 14:52-0400Heart rate82 /min Pato Avelar DPM Work Phone: [facility] HospitalFigctylesa99-32-6574 14:52-0400Systolic blood lsygsugz341 mm[Hg]Pato Avelar DPM Work Phone: [facility] HospitalNbpfxhnxkm31-61-7595 14:58-0400Body .5 cmPaul Biedenbach DO Work Phone: [facility] HospitalBxixhhwytn36-45-9181 14:58-0400Body mass index (BMI) [Ratio]56.7 kg/m2Paul Biedenbach DO Work Phone: [facility] HospitalFbmjwhitai72-55-0574 14:58-0400Body ewjfjz758.62 kgPaul Biedenbach DO Work Phone: [facility] HospitalIuegdrmqyq70-33-7662 15:25-0400Diastolic blood rrimstig40 mm[Hg]LIBRARY CIRCULATION TECHNICIAN-C Monique Emmanuel Work Phone: 1(060)519-[address] [place], [place] 8384106-19-2024 15:25-0400 Heart rate80 /minNP-C Monique Emmanuel Work Phone: [phone] [place], [place] 8384106-19-2024 15:25-0400 Respiratory rate22 /minNP-C Monique Whitleymer Work Phone: 1([phone])528-[address] [place], [place] 8384106-19-2024 15:25-0400 SaO2% (BldA) [Mass fraction]94 %LIBRARY CIRCULATION TECHNICIAN-C Monique Whitleymer Work Phone: 1(809)524-[address] [place], [place] 8384106-19-2024 15:25-0400 Systolic blood kukpufir911 mm[Hg]LIBRARY CIRCULATION TECHNICIAN-C Monique Emmanuel Work Phone: 1([phone])757-[address] [place], [place] 8384106-19-2024 12:57-0400 Body wcjbqzjntys12.6 [degF]LIBRARY CIRCULATION TECHNICIAN-C Monique Emmanuel Work Phone: [facility]06-19-2024 12:57-0400 Inhaled oxygen flow rate6 L/minNP-C Monique Emmanuel Work Phone: [facility]06-19-2024 10:38-0400 Body mass index (BMI) [Ratio]56.5 kg/m2NP-C Monique Emmanuel Work Phone: [facility]06-19-2024 10:31-0400 Body ejoigh890.48 cmNP-C Monique Emmanuel Work Phone: [facility]06-19-2024 10:31-0400 Body izhfsh103.16 kgNP-C Monique Emmanuel Work Phone: 1(493)776-[address] [place], [place] 8384105-29-2024 13:27-0400 Diastolic blood asriqjek47 mm[Hg]Pato Avelar [facility]05-29-2024 13:27-0400Heart rate64 /Helen Avelar [facility]05-29-2024 13:27-0400Mean blood wadvdgsu424 mm[Hg]Pato Avelar [facility]05-29-2024 13:27-0400 Systolic blood cqkespze362 mm[Hg]Pato Avelar [facility]05-29-2024 13:26-0400Heart rate65 /Helen Avelar [facility]05-29-2024 13:26-0400 Respiratory rate16 /Helen Avelar [facility]05-29-2024 13:26-6217MwN7% (BldA) [Mass fraction]93 %Pato Avelar [facility]05-29-2024 13:26-0400Blood Pressure Rupesh Avelar [facility]05-29-2024 13:26-0400Body wfjfuhjrjxk89.42 [degF]Pato Avelar [facility]05-29-2024 13:26-0400 Diastolic blood zuqgtklq28 mm[Hg]Pato Avelar [facility]05-29-2024 13:26-0400Mean blood itgojpgm088 mm[Hg]Pato Avelar [facility]05-29-2024 13:26-0400 Systolic blood ofgmaupw500 mm[Hg]Pato Avelar [facility]04-01-2024 17:36-0400Body qzaucv840.94 cmNP-C Monique Emmanuel Work Phone: 6(781)258-[address] [place], [place] 8384104-01-2024 17:36-0400 Body mass index (BMI) [Ratio]58.4 kg/m2NP-C Monique Emmanuel Work Phone: 1(470)247-[address] [place], [place] 8384104-01-2024 17:36-0400 Body ezvotnlwzdg77.7 [degF]LIBRARY CIRCULATION TECHNICIAN-C Monique Emmanuel Work Phone: 1(255)211-[address] [place], [place] 8384104-01-2024 17:36-0400 Body .38 kgNP-C Monique Emmanuel Work Phone: 1(048)475-[address] [place], [place] 8384104-01-2024 17:36-0400 Heart rate87 /minNP-C Monique Emmanuel Work Phone: 8(083)915-[address] [place], [place] 8384104-01-2024 17:36-0400 Respiratory rate18 /minNP-C Monique Whitleymer Work Phone: 4([phone])091-[address] [place], [place] 8384104-01-2024 17:36-0400 SaO2% (BldA) [Mass fraction]97 %LIBRARY CIRCULATION TECHNICIAN-C Monique Emmanuel Work Phone: 5(288)257-[address] [place], [place] 8384104-25-2022 16:45-0400 Body jmscot962.94 cmPlorene Dudley Other [facility] Other 04-25-2022 16:45-0400Body mass index (BMI) [Ratio] 58.38 kg/i6NxvyezMonique Dudley Other [facility] Other 04-25-2022 16:45-0400Body vlraugmfujp74.9 [degF]Monique Dudley Other [facility] Other 04-25-2022 16:45-0400Body itiyhc562.16 kgMonique Dudley Other [facility] Other 04-25-2022 16:45-0400Diastolic blood mm[Hg] Monique Suemond Other [facility] Other 04-25-2022 16:45-0400Respiratory rate20 /minMonique Dudley Other [facility] Other 04-25-2022 16:45-7773UoD2% (BldA) [Mass fraction]98 % Monique Suemond Other [facility] Other 04-25-2022 16:45-0400Systolic blood mm[Hg] Monique Suemond Other [facility] Other Encounters Encounter DateEncounter TypeCare ProviderFacilityStart: 09-05-2025 End: 26-15-2969Dohong flowsheetPato Avelar DPMadi Work Phone: [facility] PODIATRYStart: 09-05-2025 End: 15-74-1782Bwffbw flowsheetNicholas A Brown DPM Work Phone: [facility] CI PODIATRYStart: 09-05-2025 End: 37-24-7682Tuxmei outpatient visit 15 minutesPato Avelar DPM Work Phone: [facility] CI PODIATRYComment on above:Capsulitis of metatarsophalangeal (MTP) joint of right foot (Primary Dx); Contracture of right ankle; Posterior tibial tendonitis of right legStart: 09-05-2025 End: 73-86-5063oyynugyyvqGWDKCBIT A BROWNNot AvailableStart: 09-03-2025 End: 69-98-3463fyyrwehlmfZOWRIJ S CRAMERFacility:[facility]tart: 2025 End: 17-68-7398vtpjzarnaeXatopz Sue Cramer LIBRARY CIRCULATION TECHNICIAN-C Work Phone: [facility] Work Phone: Start: 2025 End: 71-07-5717Tzxcyst encounter procedureInge Adler MD-[facility] Work Phone: Start: 06-15-2025 End: 27-63-7083wrflvxdxjaFrctwu Sue CramerFacility:[facility] Healt[facility]art: 47-53-2577Bafyfnanjz and management of inpatientDanuria Mclaughlin MD-[facility] Work Phone: Start: 42-57-8555Zub-patient / Non-visitLinfranklin Adler MD-[facility] Work Phone: Start: 87-07-3807vrkheoixzni encounterPabeverley Emmanuel LIBRARY CIRCULATION TECHNICIAN-C Work Phone: [facility] Work Phone: Start: 06-11-2025 End: 30-58-6277iaggkwsvjeLWSSNP S CRAMERFacility:[facility]tart: 06-11-2025 End: 55-72-9755Hunwlpzyb to same day surgery centerSean Mata DPM Work Phone: OrthopaedicsComment on above:S/P foot surgery, right (Primary Dx); Chronic pain of right ankleStart: 06-11-2025 End: 00-99-1572Whgyxhrlxvdj consultation with patientChvonnie Mata DPMadi Work Phone: OrthopaedicsStart: 01-04-6939eetattmxitRRZAUP Spencer EMMANUEL [facility]art: 06-06-2025 End: 54-95-3994Kxteffnjjd hospital visit by physiciani [facility] (Lg Bore/1.5t)Radiology MRIComment on above:Chronic pain of right ankle [M25.571, G89.29]Start: 05-17-2025 End: 02-60-5413Innauosll encounterChristop Henrry Mata DPM Work Phone: OrthopaedicsStart: 05-16-2025 End: 40-44-9808Htsevac encounter procedureChristopher Henrry Mata DPM Work Phone: OrthopaedicsComment on above:S/P foot surgery, right (Primary Dx); Chronic pain of right ankleS/P foot surgery, right (Primary Dx)Start: 05-16-2025 End: 68-97-6673okzidpvtyiGXVWVJ S TRANMERFacility:[facility]tart: 05-06-2025 End: 95-24-9981Ckaqnfr encounter procedureCast Tech Joi Work Phone: OrthopaedicsComment on above:S/P foot surgery, right (Primary Dx)Start: 05-06-2025 End: 17-54-9372lerhgmlfguTGXSYO S TRANMERFacility:[facility]tart: 05-03-2025 End: 91-57-7710ihznbxohzlVlclqidsryo Henrry Esperanza DPM Work Phone: OrthopaedicsStart: 05-03-2025 End: 68-29-1575Wyjpiaw encounter procedureChristopher W Esperanza DPM Work Phone: OrthopaedicsComment on above:CastStart: 04-25-2025 End: 10-75-1023Nrmpwri encounter procedureChristopher Henrry Mata DPM Work Phone: OrthopaedicsComment on above:Sinus tarsitis, right (Primary Dx)S/P foot surgery, right (Primary Dx)Start: 04-25-2025 End: 50-06-0667asburvsjihAXRTWU S CRAMERFacility:[facility]tart: 04-16-2025 End: 76-33-8878pzjxvobuqpUIIOKW S CRAMERFacility:[facility]tart: 03-21-2025 End: 87-90-5904Tsqaxh outpatient visit 15 minutesPato Avelar DPM Work Phone: [facility] CI PODIATRYComment on above:Capsulitis of metatarsophalangeal (MTP) joint of right foot (Primary Dx); Type 2 diabetes mellitus without complication, unspecified whether long-term insulin useStart: 03-21-2025 End: 27-98-6378yhrcyvknllIFWYGKSG A BROWNNot AvailableStart: 03-21-2025 End: 81-78-5120Nzdyue Mateo Avelar DPM Work Phone: [facility] PODIATRYStart: 03-21-2025 End: 47-60-6422Uprsmq Mateo Avelar DPM Work Phone: [facility] PODIATRYStart: 03-14-2025 End: 84-65-2237Ibigwlstun hospital visit by physicianSaúl Martínez 1 Work Phone: RadiologyComment on above:S/P foot surgery, right [Z98.890]Start: 03-14-2025 End: 81-11-0721esgfgxfqasXlvy Ezra RT(R)RadiologyComment on above:Radiology XRStart: 03-14-2025 End: 48-73-5711Gzmtfsv encounter procedureSara Ezra RT(R)RadiologyComment on above:S/P foot surgery, right (Primary Dx)Start: 03-07-2025 End: 49-62-4000Vsmxyd flowsAlbert Elizabeth Rodo DPM Work Phone: [facility] CI PODIATRYStart: 03-07-2025 End: 17-97-2354Ouopfi kingstonCleocornelius Johnson Rodo DPM Work Phone: [facility] CI PODIATRYStart: 03-07-2025 End: 30-21-8664Jdbwud outpatient visit 15 minutesPato Elizabeth Rodo DPM Work Phone: [facility] CI PODIATRYComment on above:Capsulitis of metatarsophalangeal (MTP) joint of right foot (Primary Dx)Start: 03-07-2025 End: 90-17-1570hwhqphohbkHLMSEPJD A BROWNNot AvailableStart: 02-20-2025 End: 11-12-5301Cpjnlbnyy encounterChristopher Henrry Mata DPM Work Phone: [facility] Rheum InstituteComment on above:Patient UpdateStart: 02-13-2025 End: 08-23-3722Cvaxbdg encounter procedureMaura Shell RT(R)Radiology Comment on above:S/P foot surgery, right (Primary Dx)Start: 02-13-2025 End: 34-09-1148uzqjlsgtdiOnmblm M Shimrock RT(R)RadiologyComment on above:Radio Gen RMPStart: 02-13-2025 End: 19-23-2061Qfbfjcmraz hospital visit by physicianSaúl Andrews Work Phone: RadiologyComment on above:S/P foot surgery, right [Z98.890]Start: 02-05-2025 End: 79-65-2170tulzrwwfxfFsgvxaibpMansfield Hospital Work Phone: Start: 02-05-2025 End: 93-13-3988Txskdlp encounter procedureFirgavino [facility] Work Phone: Start: 01-23-2025 End: 49-06-5657muuautwbfnQCHQGO S CRAMERFacility:[facility]tart: 01-23-2025 End: 67-81-8183Jrpfypq encounter procedureChristopher W Esperanza DPM Work Phone: OrthopaedicsComment on above:S/P foot surgery, right (Primary Dx); Accessory navicular bone of right footS/P foot surgery, right (Primary Dx)Start: 45-72-4174trnwfbwdpdZGOUYI S CRAMERFacility:[facility]tart: 01-09-2025 End: 55-08-4275ohqkykhmveCBZERE S CRAMERFacility:[facility]tart: 01-09-2025 End: 63-71-7157Oqmyink encounter procedureChristopher W Esperanza DPM Work Phone: OrthopaedicsComment on above:S/P foot surgery, right (Primary Dx); Accessory navicular bone of right footS/P foot surgery, right (Primary Dx)Start: 01-02-2025 End: 09-55-1161Lwammibwh encounterChristopher W Esperanza DPM Work Phone: OrthopaedicsStart: 12-31-2024 End: 62-74-8417Ybschnoph encounterChristopher W Esperanza DPM Work Phone: Orth and Rheum InstituteComment on above:Surgical FollowupStart: 12-31-2024 End: 76-39-6077sphkttwqzmBKVAZGEACME W HERBERTFacility:[facility] Start: 12-28-2024 End: 59-29-0602Llzqgynob to [facility] 3 Work Phone: Pre AnesthesiaStart: 12-28-2024 End: 46-95-2431ojjrgpkhzmFRMAGD S TRANMERFacility:[facility] Memorialtart: 12-28-2024 End: 28-70-0183Jopwqzusyf [facility] 3 Work Phone: Pre AnesthesiaComment on above:Pre-op evaluation (Primary Dx); Gastroesophageal reflux disease, unspecified whether esophagitis present; Diabetes mellitus without complication (HCC); BMI 60.0-69.9, adult (HCC); AQUILES (obstructive sleep apnea)Start: 71-15-3111Sqsfsnhat for other preprocedural examinationPAMELA [facility] ClevelandStart: 12-28-2024 End: 00-08-4429Nwznxkqpxqlvn examination doneOver[facility] 3 Work Phone: [facility] Work Phone: Start: 12-14-2024 End: 03-62-6810Vkdoji OnlyChvonnie Mata DPM Work Phone: OrthopaedicsComment on above: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)Start: 12-12-2024 End: 81-96-4322Edlykmjwc encounterChvonnie Mata DPM Work Phone: OrthopaedicsComment on above:Surgical FollowupStart: 12-12-2024 End: 62-81-3224Dlkjyjn encounter procedureDajacob Reynoso RT(R)RadiologyComment on above:Pain in right foot (Primary Dx); Accessory navicular bone of right footStart: 12-12-2024 End: 75-73-7606vybdtpkzglYlveif Coleman RT(R)RadiologyComment on above:Radiology XRStart: 12-12-2024 End: 89-50-1834Fomnthhfjn hospital visit by physicianSaúl Andrews Work Phone: RadiologyComment on above:Pain [R52]Start: 12-05-2024 End: 47-53-1272Ogwitb OnlyChristopher Henrry LEDESMAM Work Phone: Orth and Rheum InstituteComment on above:Pain (Primary Dx)Start: 11-26-2024 End: 84-14-2084rtwaolafqkSNWYX ELAdena Pike Medical Centertart: 10-24-2024 End: 81-33-8984Ubmovf follow up visit related to original Jamilah Avelar DPM Work Phone: [facility] [place] PODComment on above:Stress fracture of right foot, initial encounter (Primary Dx); Type 2 diabetes mellitus without complication, 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 (CMS/HCC); Accessory navicular bone of right footStart: 10-24-2024 End: 64-82-0766ipqschpenyBCLJAMQE A BROWNNot AvailableStart: 10-24-2024 End: 15-23-2591Nqrckw flowsheetNicholas A Brown DPM Work Phone: [facility] [place] PODStart: 10-24-2024 End: 15-50-0497Qdmbkz flowsheetNicholas A Brown DPM Work Phone: [facility] [place] PODStart: 10-04-2024 End: 97-41-5995Ymhmlo follow up visit related to original pxNicholas A Brown DPM Work Phone: [facility] CI PODIATRYComment on above: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); Contracture of right ankle; Stress fracture of right foot, initial encounterStart: 10-04-2024 End: 29-58-9633ihdlpxuwjsHRZXWTJE A BROWNNot AvailableStart: 10-04-2024 End: 49-09-7143Amqrmy flowsheetNicholas A Brown DPM Work Phone: [facility] PODIATRYStart: 10-04-2024 End: 38-01-3462Blymxb flowsheetNicholas A Brown DPM Work Phone: [facility] PODIATRYStart: 09-20-2024 End: 69-05-9793Xhvvus follow up visit related to original pxNicholas A Brown DPM Work Phone: [facility] CI PODIATRYComment on above: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); Contracture of right ankleStart: 09-20-2024 End: 44-93-8352yjlwvpzkoiBDMMQPEB A BROWNNot AvailableStart: 09-20-2024 End: 70-94-6531Pqdtiw flowsheetNicholas A Brown DPM Work Phone: [facility] CI PODIATRYStart: 09-20-2024 End: 72-08-1220Renpay flowsheetNicholas A Brown DPM Work Phone: [facility] CI PODIATRYStart: 09-13-2024 End: 39-41-1021Jrgffi follow up visit related to original pxPato Avelar DPM Work Phone: [facility] CI PODIATRYComment on above: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); Contracture of right ankle; Type 2 diabetes mellitus without complication, unspecified whether long-term insulin use ([facility])Start: 09-13-2024 End: 06-14-7345mcgizqrrxnULAVDUNJ A BROWNNot AvailableStart: 09-07-2024 End: 40-68-3415Mdtighfuh encounterNicantonio Avelar DPM Work Phone: [facility] CI PODIATRYStart: 09-05-2024 End: 59-93-8151Jpd Drop offPato Avelar [facility] Start: 09-05-2024 End: 31-74-5608yjzworvkgfZYV Pato AvelarFacility:FTMCStart: 08-30-2024 End: 15-81-3589Yeylfs outpatient visit 25 minutesPato Avelar DPM Work Phone: [facility] CI PODIATRYComment on above: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); Type 2 diabetes mellitus without complication, 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 ([facility]); Heel spur, left; Plantar fasciitis; Contracture of left ankle; Contracture of right ankleStart: 08-30-2024 End: 74-48-5398Hszpku flowsheetPato Avelar DPM Work Phone: [facility] CI PODIATRYStart: 08-30-2024 End: 18-79-9476Dqrhpb flowsheetNicantonio Johnson Brown DPM Work Phone: [facility] CI PODIATRYStart: 08-02-2024 End: 64-62-2149Tlcshu outpatient visit 15 minutesPato Avelar DPM Work Phone: [facility] CI PODIATRYComment on above: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); Posterior tibial tendonitis of right leg; Type 2 diabetes mellitus without complication, 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 ([facility])Start: 08-02-2024 End: 24-61-2330Tboeme kingstonNicantnoio A Brown DPM Work Phone: [facility] CI PODIATRYStart: 08-02-2024 End: 56-43-7529Bjmgry flowsheetNicholas A Brown DPM Work Phone: [facility] CI PODIATRYStart: 07-24-2024 End: 32-21-9322Hemslk outpatient new 45 minutesPaul S Biedenbach DO Work Phone: [facility] NORWALKComment on above:Arthralgia of left temporomandibular joint (Primary Dx); Left ear pain; Chronic rhinitis; Fullness in ear, leftStart: 07-24-2024 End: 33-86-5840Xkmapj flowsheetPaul S Biedenbach DO Work Phone: [facility] NORWALKStart: 07-24-2024 End: 90-77-3974Idsbws flowsheetPaul S Biedenbach DO Work Phone: [facility] NORWALKStart: 07-19-2024 End: 47-52-2726Tgkwdq outpatient visit 15 minutesNicantonio A Brown DPM Work Phone: [facility] [place] PODComment on above:Posterior tibial tendonitis of right leg (Primary Dx); Accessory navicular bone of left foot; Type 2 diabetes mellitus without complication, 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 ([facility]); Accessory navicular bone of right footStart: 07-19-2024 End: 71-26-2819Mzytcv dannyheetNicholas A Brown DPM Work Phone: [facility] [place] PODStart: 07-19-2024 End: 92-23-7816Oxjehd flowsheetNicholas A Brown DPM Work Phone: [facility] [place] PODStart: 07-19-2024 End: 18-53-2186Xopnedrjk encounterNicantonio Avelar DPMadi Work Phone: [facility] CI PODIATRYComment on above:Casting For Braces Or OrthoticsStart: 06-28-2024 End: 64-25-5024rwogejwiwwPCPNSVOF A BROWNNot AvailableStart: 06-07-2024 End: 02-98-9585vquuzpnyhaAHIZUDNE A BROWNNot AvailableStart: 05-24-2024 End: 11-71-5779mhchlzefwoMKWOZJTZ A BROWNNot AvailableStart: 05-16-2024 End: 28-72-5590Ksxupxxqn to same day surgery centerLORI Emmanuel Work Phone: [facility] CampusStart: 05-16-2024 End: 73-07-6819hqqpplhjguZE-Teresa Emmanuel Work Phone: [facility] Work Phone: Start: 05-03-2024 End: 15-60-3785aapoufwvucWYUZDUQA A BROWNNot AvailableStart: 04-25-2024 ambulatoryNicholas Elizabeth AvelarFacility:FTMCStart: 04-25-2024 End: 28-17-0382fzddginzdyORG Pato AvelarFacility:FTMCStart: 04-25-2024 End: 25-84-3487Joijcqu encounter procedureNicjorge luisas Elizabeth Avelar [facility] Start: 04-16-2024 End: 65-02-1536Bdy-admission assessmentNicjorge luisas A Rodo [facility] Start: 04-12-2024 End: 22-59-9860ifjlwjenewZHEJGCAA A BROWNNot AvailableStart: 03-29-2024 End: 84-45-3944sbbpwizomvUJTRPYPW A BROWNNot AvailableStart: 02-27-2024 End: 10-03-9378tgktmnneuqWB-C Monique Emmanuel Work Phone: [facility] Work Phone: Start: 02-27-2024 End: 79-71-2057Dehivvt encounter procedureNP-C Monique Emmanuel Work Phone: [facility] Work Phone: Start: 03-32-0798bgesqactlvVAELES CRAMERFacility:H1 Start: 01-05-2023 End: 16-52-4342rvsgtfxvchDPILRS CRAMERFacility:A9Yplgr: 11-28-2022 End: 23-21-2550fqivmfgwojJALEMO CRAMERFacility:V5Bgtnx: 11-15-2022 End: 00-08-7864ltftmapcwqEELXFC CRAMERFacility:G9Gplvn: 10-25-2022 End: 98-16-3949owztucvysmVRNAHA CRAMERFacility:J4Hlrat: 08-25-2022 End: 85-93-6022twmuomaygnSDSPUQ CRAMERFacility:N9Joism: 14-63-2800Xydqxglmr for general adult medical examination without abnormal findingsMONIQUE Luciano HospitalStart: 08-18-2022 End: 77-33-7622teignnktrrEKPYYR CRAMERFacility:F1Schhq: 08-18-2022 End: 91-37-9523Hjmluuwxf for general adult medical examination without abnormal findingsPAMELA LIENFacility:G3Ametp: 06-01-2022 End: 30-16-3319cwltflbdxeUS WESTLEY JHAFacility:O9Knubq: 03-22-2022 End: 91-71-8719xiqqukcgtgJvhemn Dymond Other [place] [employer] Other Start: 18-52-8660Gubpwv outpatient visit 15 minutes Monique DudleyFPG [facility] Procedures DateProcedureProcedure DetailPerforming ClinicianStart: 77-22-2205Yktzu chest X-rayPabeverley Emmanuel LIBRARY CIRCULATION TECHNICIAN-C Work Phone: Start: 25-41-8227Qjv any jt lower extrem w/o contrast matrlChristopher W Esperanza DPM Work Phone: Start: 81-39-3271Wnfwwqtdsourur aspir&/inj interm jt/burs w/o usChristopher W Esperanza DPM Work Phone: Start: 50-08-3343Jsuor foot complete minimum 3 views Brianophchristelle Mata DPM Work Phone: Start: 38-45-7107Selqd foot complete minimum 3 views Sean Sales Esperanza DPM Work Phone: Start: 62-54-2925Awucc foot complete minimum 3 views Sean Sales Esperanza DPM Work Phone: Start: 60-72-8595WvdzadfvbqnOG-C Monique Lien Work Phone: Start: 48-82-2184O-ray of left footNP-C Monique Lien Work Phone: Start: 34-53-7999Lpdva X-ray of right shoulderNP-C Monique Emmanuel Work Phone: [facility]NicMad[facility] Plan of Treatment DateCare ActivityDetailAuthorStart: 02-22-6440Xqwqa microalbumin profile DTaP,Tdap,Td Vaccine (7 - Td or Tdap)[facility]: 09-06-2025 End: 39-86-3322Tjdmomi encounter phahptihx90/10/2025 9:30 AM EDT Office Visit [facility] [address] [place] [address] Katrin Molina, DPM [address] [place] [address] [facility] PodiatryStart: 09-05-2025 End: 58-41-2095Wypdnnm encounter lajaapxqf17/09/2025 10:40 AM EDT Office Visit [facility] [address] [place] [address] Pato Avelar DPM [address] [facility] [address] [place] [address] ArrivedNOMS CI PODIATRYComment on above:ArrivedStart: 47-49-9265Xbwcnalpf vaccinationOhioHealth Grove City Methodist Hospitaltart: 51-72-2529DluvuhqljWilson Healthtart: 75-14-8087Uwoti disorder assessmentWilson Healthtart: 06-15-2025 End: 41-48-4154JswkmtqucWilson Healthtart: 83-54-9317Zqyofyvs to cardiologistWilson Healthtart: 94-91-2529Sksgnwha admission [facility]: 06-11-2025 End: 50-28-1193Aayeivl encounter inlkrovxa95/15/2025 9:45 AM EDT Office Visit Orthopaedics [address] [place] [address] Sean Mata, [place] [address] [place] [address] F/U, 3 weeksOrthopaedicsComment on above:F/U, 3 weeks Start: 06-06-2025 End: 17-07-6774Zzdeliy encounter ffsptorlo20/10/2025 8:00 AM EDT Appointment Radiology MRI [address] [place] [address] right ankle Radiology MRIComment on above:right ankleStart: 05-16-2025 End: 49-48-7700Yuaoqan encounter procedureOrthopaedicsComment on above:right footF/U, 3 weeksStart: 03-21-2025 End: 82-83-8023Nrmohlz encounter wzkoaoalm57/24/2025 2:20 PM EDT Office Visit [facility] [address] [place] [address] Pato Avelar DPM [address] [address] Capsulitis of metatarsophalangeal (MTP) joint of right foot (Primary Dx); Type 2 diabetes mellitus without complication, unspecified whether long-term insulin useNOMS CI PODIATRYComment on above:Capsulitis of metatarsophalangeal (MTP) joint of right foot (Primary Dx); Type 2 diabetes mellitus without complication, 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Start: 03-14-2025 End: 35-97-1420Ocmrygf encounter vpnqygeuj51/17/2025 3:45 PM EDT Office Visit Orthopaedics [address] [place] [address] Sean Mata, SHITAL [address] [place] [address] Post op right foot, SX 12/31/24OrthopaedicsComment on above:Post op right foot, SX 12/31/24Start: 03-07-2025 End: 08-89-1188Yslsilo encounter snswvovdd38/10/2025 9:00 AM EDT Office Visit [facility] [address] [place] [phone] Pato Avelar DPM [address] [address] ArrivedNOMS CI PODIATRYComment on above:ArrivedStart: 02-13-2025 End: 93-10-5464Sqpqdzq encounter procedureOrthopaedicsComment on above:Post op right foot, SX 12/31/24Start: 01-23-2025 End: 58-15-5235Slclujr encounter procedureOrthopaedicsComment on above:Post op right foot, SX 12/31/24Right FootStart: 01-09-2025 End: 70-12-2074Sbeduqk encounter /12/2025 10:15 AM EST Office Visit Orthopaedics [address] [place] [address] Sean Mata DPM [address] [place] [address] Post op right foot, SX 12/31/24OrthopaedicsComment on above:Post op right foot, SX 12/31/24Start: 12-31-2024 End: 35-70-9016Wwozkpgrk to same day surgery fepjyo7412/31/2024 1:30 PM EST - 12/31/2024 3:30 PM EST Surgery Ambulatory Surgery [address] [place] [address] Sean Mata, SHITAL [address] [place], [place] [phone] (Work) RECONSTRUCTION POSTERIOR TIBIAL TENDON W/EXCISION OF ACCESSORY TARSAL NAVICULAR BONEAmbulatory SurgeryComment on above:RECONSTRUCTION POSTERIOR TIBIAL TENDON W/EXCISION OF ACCESSORY TARSAL NAVICULAR BONEStart: 12-31-2024 End: 74-97-9417Lspgdy pst tibl tdn w/exc accessory tarsl navclrRECONSTRUCTION POSTERIOR TIBIAL TENDON W/EXCISION OF ACCESSORY TARSAL NAVICULAR BONE Accessory navicular bone of right foot 12/31/2024 1:30 PM [facility] [place]: 28-64-8816Kpqzjoxsqk hospital visit by fjmkzvayd51/03/2025 1:30 PM EST Hospital Encounter Ambulatory Surgery [address] [place] [address] Sean Mata DPM [address] [place] [address] 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]Ambulatory SurgeryComment on above: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]Start: 12-31-2024 End: 82-89-7277Ylzfgxjsl to same day surgery qupmci8512/31/2024 7:30 AM EST - 12/31/2024 9:25 AM EST Surgery Ambulatory Surgery [address] [place] [address] Sean Mata, DPM [address] [place], [place] [phone] (Work) RECONSTRUCTION POSTERIOR TIBIAL TENDON W/EXCISION OF ACCESSORY TARSAL NAVICULAR BONEAmbulatory SurgeryComment on above:RECONSTRUCTION POSTERIOR TIBIAL TENDON W/EXCISION OF ACCESSORY TARSAL NAVICULAR BONEStart: 12-31-2024 End: 81-80-2326Rthvndcgnl jtaaysdjzhvv27/03/2025 7:30 AM EST Anesthesia Event Ambulatory Surgery [address] [place], [place] [phone] [place] [address] [place] [address] Ambulatory SurgeryStart: 12-31-2024 End: 35-62-6758Iwcbtz pst tibl tdn w/exc accessory tarsl navclrRECONSTRUCTION POSTERIOR TIBIAL TENDON W/EXCISION OF ACCESSORY TARSAL NAVICULAR BONE Accessory navicular bone of right foot 12/31/2024 7:30 AM [facility]Start: 25-74-4732Yhuqjblsun hospital visit by swkazavqp85/03/2025 7:30 AM EST Hospital Encounter Ambulatory Surgery [address] [place] [address] Sean Mata, DPM [address] [place] [address] 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]Ambulatory SurgeryComment on above: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]Start: 12-28-2024 End: 17-66-1980Cuwrxqrzlg koigcyotxedu89/31/2025 10:10 AM EST PAT Pre Anesthesia [address] [place] [address] PACC right foot, SX 12/31/24Pre AnesthesiaComment on above:PACC right foot, SX 12/31/24Start: 11-01-2024 End: 71-87-1244Yvrkkpj encounter apdohybgs95/05/2024 4:20 PM EST Office Visit [facility] [address] [address] Pato Avelar DPM [address] [address] [facility] CI PODIATRYStart: 10-24-2024 End: 87-91-4054Xkwjnoe encounter eocutrjzo29/27/2024 2:40 PM EST Office Visit [facility] [address] [place] [phone] Pato Avelar, DPM [address] [address] Stress fracture of right foot, initial encounter (Primary Dx); Type 2 diabetes mellitus without complication, 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 (CMS/HCC)[facility] SC PODComment on above:Stress fracture of right foot, initial encounter (Primary Dx); Type 2 diabetes mellitus without complication, unspecified whether long-term insulin use (CMS/HCC)Start: 19-66-0040Vyllcushg B Vaccine (3 of 3 - 3-dose series)Hepatitis B Vaccine (3 of 3 - 3-dose series)[facility]: 10-04-2024 End: 28-96-2958Pinxwtr encounter vdgnsazhy49/07/2024 2:40 PM EST Office Visit [facility] [address] [facility] [address] [place] [address] Pato Avelar DPM [address] [address] 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); Contracture of right ankleNOMS CI PODIATRYComment on above: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); Contracture of right ankleStart: 09-20-2024 End: 82-52-2065Jaeavsp encounter wsuvbsztq79/24/2024 2:40 PM EDT Office Visit [facility] [address] [facility] [address] [place] [address] Pato Avelar DPM [address] [address] 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); Contracture of right ankleNOMS CI PODIATRYComment on above: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); Contracture of right ankleStart: 09-13-2024 End: 22-92-8839Gepwmll encounter /17/2024 3:20 PM EDT Office Visit [facility] [address] [phone] Pato Avelar, DPM [address] [address] [facility] CI PODIATRYStart: 09-12-2024 End: 35-63-5310Bqfdclv encounter /16/2024 3:00 PM EDT Office Visit [facility] [address] [place] [address] Pato Avelar, DPM [address] [address] [facility] SC PODStart: 09-05-2024 End: 85-55-5144Uyieomx encounter vcmezehih82/09/2024 7:30 AM EDT Procedure Visit [facility] EXT DEP Pato Avelar, DPM [address] [address] [facility] EXT DEPStart: 08-30-2024 End: 21-65-2677Mqotezl encounter vmwtbowax02/03/2024 2:50 PM EDT Office Visit [facility] [address] [facility] [address] [place] [phone] Pato Avelar, DPM [address] [address] 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); Type 2 diabetes mellitus without complication, unspecified whether long-term insulin use ([facility])N[facility] CI PODIATRYComment on above: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); Type 2 diabetes mellitus without complication, 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 ([facility])Start: 08-02-2024 End: 47-16-9958Zlebmea encounter procedureNOMS CI PODIATRYComment on above: 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); Posterior tibial tendonitis of right leg; Type 2 diabetes mellitus without complication, unspecified whether long-term insulin use ([facility])Start: 46-32-8676Kdsgz-19 Vaccine ( season) Covid-19 Vaccine ()[facility]tart: 09-74-8603Cyiltbboz vaccinationInfluenza Vaccine (#1)[facility] HealthcareStart: 07-24-2024 End: 01-98-1381Mlllujy encounter procedureNOMS ENT NORWALKComment on above: ArrivedStart: 07-19-2024 End: 90-02-8901Fsahudm encounter ernisjurb35/22/2024 4:00 PM EDT Office Visit [facility] [address] [place] [address] Pato Avelar DPM [address] [address] Accessory navicular bone of left foot (Primary Dx); Type 2 diabetes mellitus without complication, unspecified whether long-term insulin use ([facility] SC PODComment on above:Accessory navicular bone of left foot (Primary Dx); Type 2 diabetes mellitus without complication, 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 ([facility])Start: 93-23-5920BydkuliooWilson Healthtart: 91-49-5858DdwwyvairWilson Healthtart: 23-16-1258Rmbvjpkhq for malignant neoplasm of cervixNOMS HealthcareStart: 86-64-6155Uihkyrzyp for malignant neoplasm of cervixNOMS HealthcareStart: 06-14-5133Hlrtrvrwsxme vaccinationPneumococcal Vaccine (1 of 2 - PCV)[facility]tart: 2007 Urine screening for proteinDiabetes: Urine Protein ScreeningWashington [facility] Memorial Hospital Start: 45-12-0437Djfgqk PCP Team Chronic Disease VisitAnnual PCP Team Chronic Disease VisitOhioHealth Grove City Methodist Hospitaltart: 91-74-0549Vhvfltf ScreeningAnxiety Screening [facility]tart: 39-65-7519Oylmnsnhyx ScreeningDepression Screening [facility]tart: 06-01-9356Cewbyetrr B surface antibody levelLDL CholesterolOhioHealth Grove City Methodist Hospitaltart: 91-13-5919Tmixznihy C screeningHepatitis C ScreeningOhioHealth Grove City Methodist Hospitaltart: 27-86-8178KUB screeningHIV ScreeningOhioHealth Grove City Methodist Hospitaltart: 01-12-1321Oetnz microalbumin profileDTaP,Tdap,Td Vaccine (6 - Tdap) [facility]: 04-41-8099Ihlyaciv foot examinationDiabetic Foot Exam [facility] Hospitaltart: 56-18-7652Ngoinjiw screeningWashington County Memorial HospitalStart: 08-55-6283Bbvdbeffq B screeningUrine Albumin:Creatinine RatioOhio State Harding Hospital Start: 56-75-0786Zriwwaeeup A1c vvsqmrayisjVyF0FLtknxanoh ClinicStart: 78-32-0818Hypepzjewq A1c measurementDiabetes: Hemoglobin H4RWULJWashington County Memorial HospitalAnion gap measurementUniversity Hospitals Tripoint Medical CenterApplication short leg cast walking/ambulatoryCAST DAVID LEG, SHORT(WALKING) Procedures Routine Sinus tarsitis, right Ordered: 04/25/2025[facility] Work Phone: comment on above:Ordered: 04/25/2025asophils [#/volume] in Blood by Automated [facility] Basophils/100 leukocytes in Blood by Automated [facility] HospitalCalculated LDL cholesterol levelUniversity Hospitals Tripoint Medical Center Cholesterol.total/Cholesterol in HDL [Mass Ratio] in Serum or PlasmaUniversity Hospitals Tripoint Medical CenterEosinophils/100 leukocytes in Blood by Automated count [facility] Tripoint Medical CenterErythrocyte distribution width [Ratio] by Automated [facility] HospitalErythrocytes [#/volume] in Blood [facility] Medical CenterGlucose [Mass/volume] in Serum or Plasma [facility] Medical CenterGlucose measurement estimated from glycated hemoglobinUniversity Hospitals Tripoint Medical CenterHematocrit [Volume Fraction] of Blood [facility] Medical CenterHemoglobin [Mass/volume] in BloodUniversity Hospitals Tripoint Medical CenterHemoglobin A1c/Hemoglobin.total in BloodUniversity Hospitals Tripoint Medical CenterLeukocytes [#/volume] corrected for nucleated erythrocytes in Blood by Automated counUniversity Hospitals Tripoint Medical Center Leukocytes [#/volume] in BloodUniversity Hospitals Tripoint Medical CenterLymphocytes [#/volume] in Blood by Automated [facility] Lymphocytes/100 leukocytes in Blood by Automated [facility] HospitalMCH [Entitic mass] by Automated [facility] MCHC [Mass/volume] by Automated [facility] HospitalMCV [Entitic volume] by Automated [facility] Brent[facility] HospitalMonocytes [#/volume] in Blood by Automated [facility] Monocytes/100 leukocytes in Blood by Automated [facility] End: 39-40-0185SV Ankle - right WO contrastMRI ANKLE WO IVCON RIGHT Radiology Routine Chronic pain of right ankle 1 Occurrences starting 05/16/2025 until 06/15/2026[facility] Work Phone: comment on above:1 Occurrences starting 05/16/2025 until 06/15/2026MR Foot - right WO contrastMR foot right wo IV contrast Imaging Routine Stress fracture of right foot, initial encounter Ordered: 10/04/2024[facility] Work Phone: Comment on above:Ordered: 10/04/2024Neutrophils [#/volume] in Blood by Automated [facility] Neutrophils/100 leukocytes in Blood by Automated [facility] HospitalNucleated erythrocytes [Presence] in Blood by Automated [facility] Brentwood HospitalPatient EducationKnow your MedsAshtabula General Hospital Ctr Work Phone: Patient referralAshtabula General Hospital Ctr Work Phone: Platelet mean volume [Entitic volume] in Blood by Automated [facility] Brent[facility] HospitalPlatelets [#/volume] in Blood [facility] Hospit[facility] Tripoint Medical CenterVLDL cholesterol measurementUniversity Hospitals Tripoint Medical CenterXR Foot - right 3 ViewsXR foot 3+ views right Imaging Routine Accessory navicular bone of right foot 09/13/2024 3:04 PM EDTMOUNTAINSTAR HEALTHCARE [facility] Work Phone: XR Foot - right 3 ViewsXR foot 3+ views right Imaging Routine Accessory navicular bone of right foot 08/02/2024 3:28 PM [facility] Work Phone: End: 50-48-4713OQ Foot - right AP and Lateral and obliqueXR FOOT GENERAL 3V AP/LAT/OBL RIGHT Radiology Routine S/P foot surgery, right 1 Occurrences starting 01/03/[address] [place] [address] Work Phone: Comment on above:1 Occurrences starting 01/03/2025 until 02/02/2026 End: 82-25-8714KI Foot - right AP and Lateral and obliqueXR FOOT GENERAL 3V AP/LAT/OBL RIGHT Radiology Routine S/P foot surgery, right 1 Occurrences starting 01/16/[address] [place] [address] Work Phone: Comment on above:1 Occurrences starting 01/16/2025 until 02/10/2026 End: 80-49-5245HM Foot - right AP and Lateral and obliqueXR FOOT GENERAL 3V AP/LAT/OBL RIGHT Radiology Routine S/P foot surgery, right 1 Occurrences starting 03/14/[address] [place] [address] Work Phone: comment on above:1 Occurrences starting 03/14/2025 until 04/07/2026 Immunizations Immunization DateImmunizationNotesCare GkfoumtnCncycwkk17-41-1188xyhjsrjqd B vaccine, pediatric or pediatric/adolescent dosagePa [employer] [facility]prov[facility] DO Work Phone: [facility] HospitalGzpcobnnot64-93-4156hahfmtc, mumps and rubella virus vaccineHesston [employer] [facility]prov[facility] DO Work Phone: [facility] HospitalKvsrhjubeb72-03-3925wtrhzupeyb, tetanus toxoids and pertussis vaccineHes[place] [employer] [facility]prov[facility] DO Work Phone: [facility] HospitalWzfvzjoxha60-25-8881urmzmvjgn poliovirus vaccine, live, oralPa [employer] [facility]prov[facility] DO Work Phone: [facility] HospitalVydzniwlbb49-65-7592vrmtyigeqie influenzae type b vaccine, conjugate unspecified formulationPa Work Marketwake forest [facility] DO Work Phone: [facility] HospitalKfvgvuyvtm25-17-7432lejghxkxce, tetanus toxoids and pertussis vaccinePaul Biedenbach DO Work Phone: [facility] HospitalEelmullbpn97-16-5702orfkzbe, mumps and rubella virus vaccinePaul Biedenbach DO Work Phone: [facility] HospitalYdzybbmzhf31-73-2612hmrdjckdy poliovirus vaccine, live, oralPaul Biedenbach DO Work Phone: [phone] [place], [place] [address]Wwxxwgytwl63-12-1880jrpyzgsiyf, tetanus toxoids and pertussis vaccinePaul Biedenbach DO Work Phone: [phone] [place], [place] [address]Cvfmftsopd15-14-0307bqxkijnywt, tetanus toxoids and pertussis vaccinePaul Biedenbach DO Work Phone: [phone] [place], [place] [address]Pguamsyuoo42-23-5381igxnmlbxk poliovirus vaccine, live, oralPaul Biedenbach DO Work Phone: [phone] [place], [place] [address]Qnlclgujfv21-80-6042vseplhdwzo, tetanus toxoids and pertussis vaccinePaul Biedenbach DO Work Phone: [phone] [place], [place] [address]Gaglllaedt61-87-8127pisvddhwo poliovirus vaccine, live, oralPaul Biedenbach DO Work Phone: [phone] [place] [address] Payers DatePayer CategoryAkyerEncompass Health Rehabilitation Hospital Of Sewickleyy [id number]-xrt [id number] Cross Blue Shield1.2.840.265594.1.13.693.2.7.9.499704.252895.40337-51-5819 Unknown1.2.840.896359.1.13.693.2.7.3.050[id number] 2.16.840.1.735127.3.579.[id number] 2.16.840.1.520237.3.579.[id number] 2.16.840.1.640629.3.579.2.62533-20-9267Afzsfyj2152330 2.16.840.1.838326.3.579.2.54915-91-0918Pbchbfn9617495 2.16.840.1.900531.3.579.2.90744-68-8287Oncdhxn5808660 2.16.840.1.291179.3.579.2.85416-82-5394Qoxxejf7723650 2.840.1.557031.3.579.2.59947-21-1948Rcmvrtq3284076 2.840.1.567555.3.579.2.93200-40-0584Ewmzoup02908535 2.0.1.360659.3.579.2.12128-31-9934Xpfudbm5457489 2.840.1.692487.3.579.2.922213-89-5746Ogxlhpx3059898 2.0.1.142720.3.579.2.796353-96-4658Zdzuskx8374753 2.840.1.596809.3.579.2.677075-04-9172Ubmalaf5249455 2.840.1.008585.3.579.2.808607-06-9780Rizhwns1676736 2.840.1.242811.3.579.2.606027-66-1365Uwmfzri3484520 2.840.1.145577.3.579.2.171406-78-7810Xsoqvfm18431057 2.840.1.498459.3.579.2.47358-90-7094Qmvlnvk95488204 2.840.1.602401.3.579.2.113692-05-7089Wrtzcnl5051909 2.16.840.1.107008.3.579.2.490250-67-1470Ihxlzor2995834 2.16.840.1.169619.3.579.2.623781-73-7018Kiutfdm8873009 2.16.840.1.641307.3.579.2.385552-79-1167Wtkptov9722356 2.16.840.1.895062.3.579.2.969991-75-0791Lmnjphr2909547 2.16.840.1.475635.3.579.2.651212-50-2314Bzwasxg8963880 2..840.1.482427.3.579.2.899969-26-9262Mjcirzv2503267 2.840.1.332500.3.579.2.352245-19-1067SdrbNew Sunrise Regional Treatment CenterL3H572046883 2..840.1.845450.74Mgujnbt03755169 2.840.1.437411.3.579.2.531 Social History DateTypeDetailFacilityUnknown if ever smokedNort Vozeeme Other Start: 08-02-2024 End: 81-59-7352Jpg [facility]igned At [facility]: 10-25-2018 End: 97-51-3771Hghasfd smoking status NHISNever smoked tobacco (finding) [facility] CenterStart: 27-31-1580Fxe Assigned At [facility] AndersonTobacco smoking statusNo Smoking Status Entered [facility]: 03-29-2024 End: 12-30-5683Mkuqjim use and exposureSmokeless tobacco non-userNOMS Healthcare Start: 08-02-2024 End: 43-17-0988Cnvmfbszk beverage intakeLifetime non-drinker (finding)[facility] HealthcareStart: 08-02-2024 End: 54-55-9021Zsbsogx of Social functionBellevue ClinicStart: 68-82-0480Abr assigned at birthNot on fileNOKY HealthcareTobacc smoking status NHISTobacco smoking consumption unknownOhio State Harding HospitalAdmemorial medical center Depression Screening Assessment 2Clevelatrium health anson ClinicStart: 08-97-2814JpwQobqje (finding)[facility] Medical CenterNEGATED: Highlighted rowStart: NINFHistory of tobacco usePassive smoker [facility] Medical Equipment Procedure CodeEquipment CodeEquipment Original TextEquipment IdentifierDates Wound debridementTendon/ligament bone anchor, non-bioabsorbable [id number] FDAStart: 33-95-5959Xxfjaz Suturetak Fiberwire 1 .5 Atkinson 2 Joselin Biocomposite 26.2mm Suture - [id number]: 15-58-0067Vqsvg Sugar Diagnostic (Onetouch Ultra Test) strip Start: 58-11-4856Myyba Sugar Diagnostic (Onetouch Ultra Test) stripStart: 80-72-4626Spket Sugar Diagnostic (Onetouch Ultra Test) stripStart: 02-05-2025 Blood Sugar Diagnostic (Onetouch Ultra Test) stripStart: 02-05-2025 Goals DatePatient GoalDesired Activity/State Functional Status GydbOfjbpmhoigGoexwdConoqgqt65-57-0540Aaaniaeqea StatusCommunity Regional Medical Center Clinical Notes 03-22-2022 to 09-03-2025 Note Date & TmnpHfjmMrexvpxc88-19-0433 NoteHNO ID: [id number] Author: SEAN MATA DPM Service: ? Author Type: Physician Type: Progress Notes Filed: 09/03/2025 08:56 Note Text: PRIMARY SERVICE: [facility] Podiatry SUBJECTIVE: Patient is seen today with [...] tablet by mouth once daily. 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 DEXCOM G7 SENSOR eduin [...] of SERVICE: 09/03/2025 TIME of SERVICE: 8:52 [facility]07-19-2025 Evaluation note* Diagnosis Onset Date Resolution Status Admit Date Chest pain acuteJuly 2024 1:59amDiabetes mellitusacuteJuly 2024 1:59am [facility] Work Phone: 1(195) 334-974007-19-2025 Evaluation note* Diagnosis Onset Date Resolution Status Admit Date Diabetes mellitus acuteJuly 2024 1:59amChest painresolvedJuly 2024 1:59am [facility] Work Phone: 1(296) 688-740607-15-2025 NoteHNO ID: [id number] Author: SEAN MATA DPM Service: ? Author Type: Physician Type: Progress Notes Filed: 06/11/2025 10:13 Note Text: PRIMARY SERVICE: [facility] Podiatry 9:48 AM through 10:18 [...] tablet by mouth once daily. 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 DEXCOM G7 SENSOR eduin [...] the deltoid and spring ligaments as described. Sales Facilitator: PSCB Transcribe Date/Time: Jun 06 2025 11:37A Dictated by : RADHA TYSON MD This examination was interpreted and the report reviewed and electronically signed by: KATIANA FLORES MD on Jun 06 2025 2:13PM EST Results-Findings * * *Final Report* * * DATE OF EXAM: Jun 06 2025 8:43AM [facility] 0164 - MRI ANKLE WO IVCON [...] tibiofibular ligament: I (more content not included)... [facility]07-15-2025 History of Present illness Narrative* Sean Mata DPM - 06/11/2025 10:08 AM EDT Images from the original note were not included. PRIMARY SERVICE: [facility] Podiatry 9:48 AM through 10:18 [...] tablet by mouth once daily. 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 DEXCOM G7 SENSOR eduin [...] the deltoid and spring ligaments as described. Sales Facilitator: PSCB Transcribe Date/Time: Jun 06 2025 11:37A Dictated by : RADHA TYSON MD This examination was interpreted and the report reviewed and electronically signed by: KATIANA FLORES MD on Jun 06 2025 2:13PM EST Results-Findings * * *Final Report* * * DATE OF EXAM: Jun 06 2025 8:43AM [facility] 0164 - MRI ANKLE WO IVCON [...] History MRI ANKLE WO IVCON RIGHT (Order #[id number]) on 06/06/2025 - Order Result History Report [...] of SERVICE: 10:08 AM documented in this encounterOhio State Harding Hospital07-10-2025 History of Present illness Narrative* Mary [...] PATIENT PRESENTS WITH AN IMPLANTABLE OR ATTACHED CATERING DRIVER: Yes [facility] RADIOLOGY DEPARTMENT: MR; Exam(s) Completed: Lower MSK: Ankle/Hind Foot, right . Aromatherapy Administered: No PERIPHERAL IV DATA: Not applicable SIGNED BY: MARIBELL Lomax) June 06, 2025 8:17 AM documented in this encounterOhio State Harding Hospital07-10-2025 NoteHNO ID: [id number] Author: MARY ALVAREZ RT(R) Service: ? Author [...] PATIENT PRESENTS WITH AN IMPLANTABLE OR ATTACHED CATERING DRIVER: Yes [facility] RADIOLOGY DEPARTMENT: MR; Exam(s) Completed: Lower MSK: Ankle/Hind Foot, right . Aromatherapy Administered: No PERIPHERAL IV DATA: Not applicable SIGNED BY: RT Dami(R) June 06, 2025 8:17 [facility]06-20-2025 Telephone encounter Note* Telephone Encounter - Natalia Barrios CT - 05/17/2025 12:00 PM EDT Patients boot in no longer inflating or button is broken. Her mother will be coming in this way next week. She will bring the boot to change it out. Patient lives in [place]. [facility]06-20-2025 Miscellaneous Notes* Telephone Encounter - Natalia Barrios CT - 05/17/2025 12:00 PM EDT Patients boot in no longer inflating or button is broken. Her mother will be coming in this way next week. She will bring the boot to change it out. [place]. documented in this encounterOhio State Harding [facility] NoteHNO ID: [id number] Author: BEVERLY DOBSON Cast Tech Service: ? Author Type: Machine Tool Technology Instructor Type: Progress Notes Filed: 05/16/2025 15:24 Note Text: Patient in today for scheduled appointment. Cast removed. Right leg cleansed with Wound wash, sea-clens and debrisoft. Examined by Dr. Mata. Patient to go int a boot she has at home. Beverly Dobson [facility]06-19-2025 History of Present illness Narrative* Bveerly Dobson Cast Kerri - 05/16/2025 3:23 PM EDT Patient in today for scheduled appointment. Cast removed. Right leg cleansed with Wound wash, sea-clens and debrisoft. Examined by Dr. Mata. Patient to go int a boot she has at home. Beverly Dobson, CT documented in this encounterOhio [facility]06-19-[facility]25 NoteHNO ID: [id number] Author: SEAN MATA DPM Service: ? Author Type: Physician Type: Progress Notes Filed: 05/16/2025 14:44 Note Text: Medical intake sheet from May 16, 2025 , was updated by patient, reviewed, and was made part of the patient's chart. Sean Mata DPM PRIMARY SERVICE: [facility] Podiatry SUBJECTIVE: Patient is seen [...] tablet by mouth once daily. 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 DEXCOM G7 SENSOR eduin [...] and further discuss treatment options SIGNATURE[facility] of Present illness Narrative* Sean Mata DPM - 05/16/2025 2:41 PM EDT Medical intake sheet from May 16, 2025 , was updated by patient, reviewed, and was made part of the patient's chart. Sean Mata DPM PRIMARY SERVICE: [facility] Podiatry SUBJECTIVE: Patient is seen [...] tablet by mouth once daily. 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 DEXCOM G7 SENSOR eduin [...] SIGNATURE: Sean Mata DPM documented in this encounterOhio State Harding Hospital06-09-2025 NoteHNO ID: [id number] Author: BEVERLY DOBSON Cast Tech Service: ? Author Type: Machine Tool Technology Instructor Type: Progress Notes Filed: 05/06/2025 16:02 Note [...] doctor during next scheduled appointment/prn. Beverly Dobson [facility]06-09-2025 History of Present illness Narrative* Beverly Dobson [...] appointment/prn. Beverly Dobson, CT documented in this encounterOhio [facility]ing [facility]06-06-[facility]25 Telephone encounter Note * Telephone Encounter - Staci Powers - 05/03/2025 2:59 PM EDT Patient called the office to schedule a cast change as suggested by Lashon. No order placed, unfortunately due to the time restraints we had to schedule for Tuesday. [facility]06-06-[facility] Miscellaneous Notes* Telephone Encounter - Staci Powers - 05/03/2025 2:59 PM EDT Patient called the office to schedule a cast change as suggested by Lashon. No order placed, unfortunately due to the time restraints we had to schedule for Tuesday. documented in this encounterOhio State Harding Hospital05-29-2025 NoteHNO ID: [id number] Author: BEVERLY DOBSON Cast Tech Service: ? Author Type: Machine Tool Technology Instructor Type: Progress Notes Filed: 04/25/2025 15:14 Note Text: Applied A Short Leg Weightbearing Cast to the right leg. Instructions on cast care given. A medium Cast Shoe was dispensed. Will f/u as scheduled/prn. [facility] History of Present illness Narrative* Beverly Dobson Cast Tech - 04/25/2025 3:13 PM EDT Applied A Short Leg Weightbearing Cast to the right leg. Instructions on cast care given. A medium Cast Shoe was dispensed. Will f/u as scheduled/prn. HAYES Johnson documented in this encounterOhio State Harding Hospital05-29-2025 NoteHNO ID: [id number] Author: SEAN MATA DPM Service: ? Author Type: Physician Type: Progress Notes Filed: 04/25/2025 14:38 Note Text: PRIMARY SERVICE: [facility] Podiatry SUBJECTIVE: Patient is seen [...] by mouth once daily. - DEXCOM G7 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 - DEXCOM G7 SENSOR [...] these instructions. Informed Consent Consent Obtained: Verbal Hext Protocol A moment to CARE was completed. [...] of SERVICE: 04/25/2025 TIME of SERVICE: 2:09 [facility]05-29-2025 History of Present illness Narrative* Sean Mata DPM - 04/25/2025 2:09 PM EDT Associated Order(s): Additional Injections: R subtalar joint Post-Procedure Diagnose(s): Sinus tarsitis, right Images from the original note were not included. PRIMARY SERVICE: [facility] Podiatry SUBJECTIVE: Patient is seen [...] tablet by mouth once daily. 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 DEXCOM G7 SENSOR eduin [...] these instructions. Informed Consent Consent Obtained: Verbal Hext Protocol A moment to CARE was completed. [...] of SERVICE: 2:09 PM documented in this encounterOhio State Harding Hospital05-20-2025 NoteHNO ID: [id number] Author: SEAN MATA DPM Service: ? Author Type: Physician Type: Progress Notes Filed: 04/16/2025 14:48 Note Text: PRIMARY SERVICE: [facility] Podiatry Virtual visit with Zoom: [...] tablet by mouth once daily. 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 DEXCOM G7 SENSOR eduin [...] week for evaluation. Explained I really cannot judge clerk what is going on without examining her clinically to determine the best plan of care. Continue icing and oral ibuprofen in the meantime along with the return to her Aircast cam walker boot. SIGNATURE: Sean Mata DPM DATE of SERVICE: 04/16/2025 TIME of SERVICE: 2:42 [facility]04-24-2025 History of Present illness Narrative* Pato Avelar, SHITAL - 03/21/2025 2:20 PM EDT Patient: Noel Abadphilip : 1990 PCP: Erich Garcia MD SUBJECTIVE This is a 34 y.o. female that presents today s/p right revisional modified Kidner right foot by Dr Mata at [facility]. 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 Author Type: Clinical Machine Tool Technology Instructor Type: Progress Notes Filed: 03/14/2025 16:37 Note Text: Dispensed size Medium ASO to right foot.[facility]04-17-2025 History of Present illness Narrative* Natalia Barrios CT - 03/14/2025 4:37 PM EDT Dispensed size Medium ASO to right foot. * Sean Mata DPM - 03/14/2025 3:41 PM EDT PRIMARY SERVICE: [facility] Podiatry SUBJECTIVE: Patient is seen [...] needed for up to 10days. 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 DEXCOM G7 SENSOR eduin [...] SIGNATURE: Sean Mata DPM documented in this encounterOhio State Harding Hospital04-17-2025 NoteHNO ID: [id number] Author: SEAN MATA DPM Service: ? Author Type: Physician Type: Progress Notes Filed: 03/14/2025 16:01 Note Text: PRIMARY SERVICE: [facility] Podiatry SUBJECTIVE: Patient is seen [...] for up to 10 days. 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 DEXCOM G7 SENSOR eduin [...] ASO ankle brace today SIGNATURE: Sean Mata [facility]04-17-2025 Note HNO ID: [id number] Author: JOYA DUBOIS RT(iMsha) Service: ? Author Type: Technologist Type: Progress [...] PATIENT PRESENTS WITH AN IMPLANTABLE OR ATTACHED CATERING DRIVER: No RADIOLOGY DEPARTMENT: General X-ray: Exam(s) Completed: Lower Extremity X-Ray(s): Foot, Right and Wt. Bearing PERIPHERAL IV DATA: Not applicable SIGNED BY: RT Ezequiel(Misha) March 14, 2025 3:32 [facility]04-17-2025 History of Present illness Narrative* Joya Dubois [...] PATIENT PRESENTS WITH AN IMPLANTABLE OR ATTACHED CATERING DRIVER: No RADIOLOGY DEPARTMENT: General X-ray: Exam(s) Completed: Lower Extremity X- Ray(s): Foot, Right and Wt. Bearing PERIPHERAL IV DATA: Not applicable SIGNED BY: RT Ezequiel(Misha) March 14, 2025 3:32 PM documented in this encounterOhio State Harding Hospital04-10-2025 History of Present illness Narrative* Pato Avelar DPM - 03/07/2025 9:00 AM EDT Patient: Noel Paul : 1990 PCP: Erich Garcia MD SUBJECTIVE This is a 34 y.o. female that presents today s/p right revisional modified Kidner right foot by Dr Mata at [facility]. Pt denies n/f/v/c and has negative pain [...] pack Pato Avelar DPM documented in this encounterWashington County Memorial [id number] Telephone encounter Note* Telephone Encounter - Chris Bhatt OCCA - 02/20/2025 4:21 PM EDT Called and informed staff she may being partial weight bearing. [facility]03-26-2025 Miscellaneous Notes* Telephone Encounter - Chris Bhatt OCCA - 02/20/2025 4:21 PM EDT Called and informed staff she may being partial weight bearing. * Telephone Encounter - Marva Bhardwaj - 02/20/2025 4:06 PM EDT Bonilla from [facility] PT Dept is calling Sean Mata DPM today to request weightbearing guide lines for patient PT CB [phone] ext [phone] FAX [phone] Patient has been identified by name and birthdate. Duration of symptoms: N/A Person calling: caregiver: Call patient at: [phone] (home) [phone] (cell) Was an appointment scheduled: No Closing statement: Results or non-symptom based questions: Thank you for calling [facility], your call will be returned within the next business day. Marva Almeida documented in this encounterOhio State Harding Hospital03-26-2025 Telephone encounter Note * Telephone Encounter - Marva Bhardwaj - 02/20/2025 4:06 PM EDT Bonilla from [facility] PT Dept is calling Sean Mata DPM today to request weightbearing guide lines for patient PT CB [phone] FAX [phone] Patient has been identified by name and birthdate. Duration of symptoms: N/A Person calling: caregiver: Call patient at: [phone] (home) [phone] (cell) Was an appointment scheduled: No Closing statement: Results or non-symptom based questions: Thank you for calling [facility], your call will be returned within the next business day. Marva Almeida [facility]03-19-2025 NoteHNO ID: [id number] Author: BEVERLY DOBSON Cast Tech Service: ? Author Type: Machine Tool Technology Instructor Type: Progress Notes Filed: 02/13/2025 10:15 Note Text: Patient in today for scheduled appointment. Cast removed. Right leg cleansed with Cavilon. Examined by Dr. Mata. Fitted with a medium Short Pneumatic Walker for the right leg. Instructions on application, adjustments and care given. Will f/u as scheduled/prn. Beverly Dobson [facility]03-19-2025 History of Present illness Narrative* Beverly Dobson Cast Tech - 02/13/2025 10:14 AM EDT Patient in today for scheduled appointment. Cast removed. Right leg cleansed with Cavilon. Examinedby Dr. Mata. Fitted with a medium Short Pneumatic Walker for the right leg. Instructions on application, adjustments and care given. Will f/u as scheduled/prn. HAYES Johnson documented in this encounterOhio State Harding Hospital03-19-2025 NoteHNO ID: [id number] Author: SEAN MATA DPM Service: ? Author Type: Physician Type: Progress Notes Filed: 02/13/2025 10:05 Note Text: PRIMARY SERVICE: [facility] Podiatry SUBJECTIVE: Patient is seen [...] up to 10 days. - DEXCOM G7 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 - DEXCOM G7 SENSOR [...] made part of the patient's chart. [facility]03-19-2025 History of Present illness Narrative* Sean Mata DPM - 02/13/2025 9:44 AM EDT PRIMARY SERVICE: [facility] Podiatry SUBJECTIVE: Patient is seen [...] needed for up to 10days. 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 DEXCOM G7 SENSOR eduin [...] chart. Sean Mata DPM documented in this encounterOhio State Harding Hospital03-19-2025 NoteHNO ID: [id number] Author: MAURA SHELL RT(Misha) Service: ? Author [...] PATIENT PRESENTS WITH AN IMPLANTABLE OR ATTACHED CATERING DRIVER: No RADIOLOGY DEPARTMENT: General X-ray: Exam(s) Completed: Lower Extremity X-Ray(s): Foot, Right PERIPHERAL IV DATA: Not applicable SIGNED BY: RT Rickie(Misha) February 13, 2025 9:23 [facility]03-19-2025 History of Present illness Narrative* Maura [...] PATIENT PRESENTS WITH AN IMPLANTABLE OR ATTACHED CATERING DRIVER: No RADIOLOGY DEPARTMENT: General X-ray: Exam(s) Completed: Lower Extremity X- Ray(s): Foot, Right PERIPHERAL IV DATA: Not applicable SIGNED BY: RT Rickie(R) February 13, 2025 9:23 AM documented in this encounterOhio State Harding Hospital02-26-2025 Note* Addendum Note - Natalia Barrios CT - 01/23/2025 12:18 PM ESTAddended by: NATALIA BARRIOS on: 01/23/2025 12:18 PM Modules accepted: Orders [facility]02-26-2025 Miscellaneous Notes* Addendum Note - Natalia Barrios CT - 01/23/2025 12:18 PM ESTAddended by: NATALIA BARRIOS on: 01/23/2025 12:18 PM Modules accepted: Orders documented in this encounterOhio State Harding Hospital02-26-2025 NoteHNO ID: [id number] Author: BEVERLY DOBSON Cast Tech Service: ? Author Type: Machine Tool Technology Instructor Type: Progress Notes Filed: 01/23/2025 11:52 Note Text: Patient in today for scheduled appointment. Cast removed. Right leg cleansed with sea-clens. Examined by Dr. Mata. Applied A Short Leg Nonweightbearing Cast to the right leg. Instructions on cast care given. Will f/u as scheduled/prn. Beverly Dobson [facility]02-26-2025 History of Present illness Narrative* Beverly Dobson Cast Tech - 01/23/2025 11:51 AM EST Patient in today for scheduled appointment. Cast removed. Right leg cleansed with sea-clens. Examined by Dr. Mata. Applied A Short Leg Nonweightbearing Cast to the right leg. Instructions on cast care given. Will f/u as scheduled/prn. HAYES Johnson documented in this encounterOhio State Harding Hospital02-26-2025 NoteHNO ID: [id number] Author: SEAN MATA DPM Service: ? Author Type: Physician Type: Progress Notes Filed: 01/23/2025 11:47 Note Text: PRIMARY SERVICE: [facility] Podiatry SUBJECTIVE: Patient is seen [...] for up to 10 days. 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 DEXCOM G7 SENSOR eduin [...] and refer to physical therapy. SIGNATURE: [facility]-20[facility] History of Present illness Narrative* Sean aMta DPM - 01/23/2025 10:56 AM EST PRIMARY SERVICE: [facility] Podiatry SUBJECTIVE: Patient is seen [...] needed for up to 10days. 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 DEXCOM G7 SENSOR eduin [...] SIGNATURE: Sean Mata DPM documented in this encounterOhio State Harding Hospital02-12-2025 NoteHNO ID: [id number] Author: SHAYLEE CONCEPCION MA Service: ? Author Type: Automotive Brake Technician Type: Progress Notes Filed: 01/09/2025 11:22 [...] will follow up as scheduled or as needed.[facility]02-12-2025 History of Present illness Narrative* Shaylee [...] scheduled or as needed. documented in this encounterOhio State Harding Hospital02-12-2025 NoteHNO ID: [id number] Author: SEAN MATA DPM Service: ? Author Type: Physician Type: Progress Notes Filed: 01/09/2025 10:55 Note Text: PRIMARY SERVICE: [facility] Podiatry SUBJECTIVE: Patient is seen [...] for up to 10 days. 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 DEXCOM G7 SENSOR eduin [...] of SERVICE: 01/09/2025 TIME of SERVICE: 10:52 [facility]02-12-2025 History of Present illness Narrative* Sean Mata, DPM - 01/09/2025 10:52 AM EST Images from the original note were not included. PRIMARY SERVICE: [facility] Podiatry SUBJECTIVE: Patient is seen [...] needed for up to 10days. 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 DEXCOM G7 SENSOR eduin [...] of SERVICE: 10:52 AM documented in this encounterOhio State Harding Hospital02-05-2025 Telephone encounter Note * Telephone Encounter - Sean Mata DPM - 01/02/2025 12:36 PM EST Called patient at [phone] to return call regarding pain management. I spoke with the patient. Advised I sent a prescription over for her electronically for Toradol 10 mg tablets take 2 right away the 1 every 6 hours with food until gone in addition to the Percocet and the Phenergan. Recommend 2 Percocet every 4-6 hours due to her BMI. Sean Mata DPM [facility]02-05-2025 Miscellaneous Notes* Telephone Encounter - Sean Mata DPM - 01/02/2025 12:36 PM EST Called patient at [phone] to return call regarding pain management. I spoke with the patient. Advised I sent a prescription over for her electronically for Toradol 10 mg tablets take 2 right away the 1 every 6 hours with food until gone in addition to the Percocet and the Phenergan. Recommend 2 Percocet every 4-6 hours due to her BMI. Sean Mata DPM documented in this encounterOhio State Harding Hospital02-03-2025 Miscellaneous Notes* Telephone Encounter - Sean Mata DPM - 12/31/2024 8:26 PM EST Called patient at her Lonnie's cell number at [phone] to check on postop progress. Received voicemail. [...] calling: self Call patient at: at home [phone] (home) [phone] (cell) Was an appointment scheduled: No Closing statement: Results or non-symptom based questions: Thank you for [facility], your call will be returned within the next business day. Marva Almeida documented in this encounterOhio State Harding Hospital02-03-2025 Telephone encounter Note * Telephone Encounter - Sean Mata DPM - 12/31/2024 8:26 PM EST Called patient at her Lonnie's cell number at [phone] to check on postop progress. Received voicemail. Left message that I called. Called patient back at 8:41 PM to same number. Spoke with who said she was doing well without any significant pain or problems at this time. Advised to call if any questions or problems between now and her first scheduled postop visit on December. Sean Mata DPM [facility] Work Phone: 1(329) 965-313402-03-2025 Telephone encounter Note* Telephone Encounter - Karissa Raman MA - 12/31/2024 3:25 PM EST Message has been sent directly to Dr Mata's phone. [facility]02-03-2025 Telephone encounter Note* Telephone Encounter - [...] calling: self Call patient at: at home [phone] (home) [phone] (cell) Was an appointment scheduled: No Closing statement: Results or non-symptom based questions: Thank you for calling [facility], your call will be returned within the next business day. Marva Almeida [facility]02-03-2025 NoteHNO ID: [id number] Author: ESTELLA GIBBONS AA Service: Anesthesiology Author Type: Nba Player Type: Anesthesia Procedure Notes Filed: 12/31/2024 09:57 [...] December 31, 2024 TIME: 9:57 AM CSN: [id number] Lake Joint [facility]02-03-2025 NoteHNO ID: [id number] Author: ESTELLA GIBBONS AA Service: Anesthesiology Author Type: Nba Player Type: Anesthesia Procedure Notes Filed: 12/31/2024 08:20 [...] December 31, 2024 TIME: 8:18 AM CSN: [id number] Lake Joint Township District [facility] Hospital01-31-2025 History and physical note* Ary Rocha APRN.IRENE - 12/28/2024 10:10 AM EST Images from the original note were not included. [facility] HISTORY AND PHYSICAL EXAMINATION SERVICE DATE: 12/28/2024 SERVICE TIME: 10:08 AM PRIMARY CARE PHYSICIAN: Monique Emmanuel, IRENE, SAW MAKER REASON FOR VISIT: Noel Paul is [...] STOP-Bang Score: STOP-Bang Score: 0 (Awaiting CPAP) [id number] Score: Age: <65 Sex: female [id number] Score: ARISCAT Score: Age: <=50 Preoperative SpO2: [...] chart review and guidance on proceeding at [facility]. Per Stephanie, patient may proceed as scheduled at [facility] CONSULTS: Anesthesia Consult chart review The Following [...] AT BEDTIME NEEDED Taking Yes DEXCOM G7 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 DEXCOM G7 SENSOR eduin [...] fevers. Neuro: No history of TIA's, stroke, BUSINESS PROCESS MANAGER tumor, impaired sensorium, hemiplegia, paraplegia or quadraplegia. No neurological symptoms or problems. Respiratory: No history of current cough or dyspnea, or pneumonia in the past 6 weeks. No history of respiratory/pulmonary symptoms or problems. Cardiovascular: No history of HTN requiring medication, no history of angina, CHF, MN, cardiac surgery or stents. Denies rest pain, [...] voices comprehension and compliance. SIGNATURE: Ary Rocha APRN.SAW MAKER PATIENT NAME: Noel Paul DATE: 12/28/2024 TIME: 10:21 AM [facility]01-31-[facility] History and physical note* Ary Rocha APRN.CNP - 12/28/2024 10:10 AM EST Images from the original note were not included. [facility] HISTORY AND PHYSICAL EXAMINATION SERVICE DATE: 12/28/2024 SERVICE TIME: 10:08 AM PRIMARY CARE PHYSICIAN: Monique Emmanuel CNP, SAW MAKER REASON FOR VISIT: Noel Paul is [...] STOP-Bang Score: STOP-Bang Score: 0 (Awaiting CPAP) [id number] Score: Age: <65 Sex: female [id number] Score: ARISCAT Score: Age: <=50 Preoperative SpO2: [...] chart review and guidance on proceeding at [facility]. Per Stephanie, patient may proceed as scheduled at [facility] CONSULTS: Anesthesia Consult chart review The Following [...] AT BEDTIME NEEDED Taking Yes DEXCOM G7 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 DEXCOM G7 SENSOR eduin [...] fevers. Neuro: No history of TIA's, stroke, BUSINESS PROCESS MANAGER tumor, impaired sensorium, hemiplegia, paraplegia or quadraplegia. No neurological symptoms or problems. Respiratory: No history of current cough or dyspnea, or pneumonia in the past 6 weeks. No history of respiratory/pulmonary symptoms or problems. Cardiovascular: No history of HTN requiring medication, no history of angina, CHF, MN, cardiac surgery or stents. Denies rest pain, [...] voices comprehension and compliance. SIGNATURE: Ary Rocha APRN.SAW MAKER PATIENT NAME: Noel Paul DATE: 12/28/2024 TIME: 10:21 AM documented in this encounterOhio State Harding Hospital01-29-2025 Instructions* Patient Instructions* Ary Rocha APRN.CNP - 12/26/2024 7:49 AM EST Images from the original note were not included. [facility] PATIENT PREOPERATIVE INSTRUCTIONS Sean Mata,* has scheduled you for your procedure at this surgery center: [facility]: [phone] --[address] [address]. Please read below carefully for your personalized [...] office. If you are currently using a [id number] injectable or oral medication for diabetes or [...] Procedures: - YOU MUST HAVE A RESPONSIBLE ELECTROMYOGRAPHIC TECHNICIAN TAKE YOU HOME. A CROZE MACHINE OPERATOR OR GASATERIA ATTENDANT CANNOT BE MADE A RESPONSIBLE ELECTROMYOGRAPHIC TECHNICIAN. - We recommend that a responsible person [...] Advance Directive, please fax a copy to [phone] or email to for it to be [...] your chart that day. 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 documented in [facility]25 NoteHNO ID: [id number] Author: SEAN MATA DPM Service: ? Author Type: Physician Type: Progress Notes Filed: 12/12/2024 10:46 Note Text: [facility] Department of [facility]opedics [facility] Orthopedic Surgery Name: Noel Paul [...] Current Outpatient Medications Medication Sig DEXCOM G7 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 DEXCOM G7 SENSOR eduin [...] to proceed. We will complete scheduling. [facility] History of Present illness Narrative* Sean Mata DPM - 12/12/2024 10:39 AM EST [facility] Department of Orthopedics [facility] Orthopedic Surgery Name: Noel Paul [...] Current Outpatient Medications Medication Sig DEXCOM G7 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 DEXCOM G7 SENSOR eduin [...] scheduling. Sean Mata DPM documented in this encounterOhio State [facility]ing Hospital01-15-2025 NoteHNO ID: [id number] Author: JAMAL REYNOSO RT(Misha) Service: ? Author [...] PATIENT PRESENTS WITH AN IMPLANTABLE OR ATTACHED CATERING DRIVER: No RADIOLOGY DEPARTMENT: General X-ray: Exam(s) Completed: Lower Extremity X-Ray(s): Foot, Right PERIPHERAL IV DATA: Not applicable SIGNED BY: RT Manju(R) December 12, 2024 9:29 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 Assessment/Plan Nole Paul is a 34 y.o. year old [...] from me. 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 Accessory navicular bone of [...] need more invasive surgery. Will refer to [facility] Dr. [place] for referral and consultation at tertiary care center secondary to more advanced type procedure may be necessary. Will refer for consultation and possible further intervention Pato Avelar DPM documented in this encounterWashington County Memorial HospitalAreyaxcvpl61-48-3147 History of Present illness Narrative* Pato Avelar [...] History: Past Medical History: Diagnosis Date Diabetes ([facility]) Ear problems GERD (gastroesophageal reflux [...] right Pato Avelar DPM documented in this encounterWashington County Memorial HospitalEhpjcpqwvu15-55-9401 History of Present illness Narrative* Pato Avelar [...] diagnosis. Pato Avelar DPM documented in this [facility]10-11-2024 Telephone encounter Note* Telephone Encounter - Pato Avelar DPM - 09/07/2024 8:26 AM EDT Has been called for possible increase in pain medication and will switch from hydrocodone to oxycodone and sent to [facility] and [place] [facility] HospitalJvemkmmaas20-82-3091 Miscellaneous Notes* Telephone Encounter - Pato Avelar DPM - 09/07/2024 8:26 AM EDT Has been called for possible increase in pain medication and will switch from hydrocodone to oxycodone and sent to [facility] documented in this [facility]10-03-2024 History of Present illness Narrative* Pato Avelar [...] History: Past Medical History: Diagnosis Date Diabetes ([facility]) Ear problems GERD (gastroesophageal reflux [...] cool tibia to toes b/l NEURO: 5.07 [place] Deyan[place] monofilament test positive to digits and [...] 2 diabetes mellitus without complication, unspecified whether long-term insulin use ([facility]) 3. Heel spur, left 4. [...] risks, alternatives, benefits, post op complications and long-term expectations were discussed including but not limited to: infection,bone infection,wound dehiscence hardware failure and irritation,wound dehiscence,delay union/mal union/non union of bone. RSDS,neuroma,duty limitations,DVT/PE, [place],nerve damage, scar, loss of sensation, swelling. Pt [...] 2024 Pato Avelar DPM documented in this encounterWashington County Memorial HospitalZixaauiyrh90-02-6234 History of Present illness Narrative* Pato Avelar [...] History: Past Medical History: Diagnosis Date Diabetes ([facility]) Ear problems GERD (gastroesophageal reflux [...] 2 diabetes mellitus without complication, unspecified whether long-term insulin use ([facility]) PLAN Patient to continue with [...] Patient may continue with conservative treatments including vifh-pwn-pqghwma anti- inflammatories and other treatments suggested today. Patient may want to be s cheduled for surgical intervention in the near future. Patient had a right modified Kidner procedure to the right foot with removal of accessory navicular with postoperative pain medicine of [place] and will see family Lien for preop clearance. This condition is unrelated to prior condition Pato Avelar DPM documented in this encounterWashington County Memorial HospitalAdqegmmbks30-21-9439 Telephone encounter Note* Telephone Encounter - GIOVANI MURRY - 07/31/2024 12:54 PM EDT Pt called back, would like scanned at next appt [facility] HospitalApyuphcmsi06-54-4472 Miscellaneous Notes* Telephone Encounter - GIOVANI MURRY - 07/31/2024 12:54 PM EDT Pt called back, would like scanned at next appt * Telephone Encounter - GIOVANI MURRY - 07/31/2024 12:42 PM EDT Left vm to go over benefits * Telephone Encounter - Marti Murry MA - 07/27/2024 10:44 AM EDT Per call to Elda CHILDRESS @ [phone] with Denise Marroquin - I verified the policy is current and active with an effective date of 11/28/2020. L3020 is covered at 100% as both the ded and oop have been met. There are no frequency limits, no exclusions, and no prior authorizations needed. Ref#: [id number]. * Telephone Encounter - Pato Avelar DPM - 07/19/2024 4:56 PM EDT Please precertify for custom orthotics for the diagnosis of Posterior tibial tendinitis bilaterally documented in this encounterWashington County Memorial HospitalAjdhppakpw75-60-9534 Telephone encounter Note* Telephone Encounter - GIOVANI MURRY - 07/31/2024 12:42 PM EDT Left vm to go over benefits [facility] HospitalGrusxhguee12-81-6458 Telephone encounter Note* Telephone Encounter - Marti Murry MA - 07/27/2024 10:44 AM EDT Per call to Elda CHILDRESS @ [phone] with Denise Marroquin - I verified the policy is current and active with an effective date of 11/28/2020. L3020 is covered at 100% as both the ded and oop have been met. There are no frequency limits, no exclusions, and no prior authorizations needed. Ref#: [id number]. [facility] HospitalUceiqrizof91-86-5733 History of Present illness Narrative* Jaime Woods [...] the next 7-10 days. Patient will use xglo-rcx-hdlrmuv ibuprofen 3 times a day with food to help decrease inflammation. The patient may also benefit from a mouth guard. We will consider referral to Dr. Adali SALAZAR if there is no improvement documented in this encounterWashington County Memorial HospitalQnfmjbhcyd55-62-3458 Telephone encounter Note* Telephone Encounter - Pato Avelar DPM - 07/19/2024 4:56 PM EDT Please precertify for custom orthotics for the diagnosis of Posterior tibial tendinitis bilaterally [facility] HospitalGtfesptneh76-15-6341 History of Present illness Narrative* Pato Avelar DPM - 07/19/2024 4:10 PM EDT Patient: Noel Paul : 1990 PCP: [facility] Provider MD Milad SUBJECTIVE This is a [...] History: Past Medical History: Diagnosis Date Diabetes ([facility]) Medications: Current Outpatient Medications: cholecalciferol [...] 2 diabetes mellitus without complication, 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 Accessory navicular bone of [...] treatments Pato Avelar DPM documented in this encounterWashington County Memorial HospitalCudfknxacd71-18-3213 Evaluation note* Encounter Date Diagnosis Assessment Notes [...] no improvement in 5 to 7 days. 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 Type 2 diabetes mellitus without complication, unspecified whether long-term insulin use (CMS/HCC) Heel spur, left Plantar fasciitis Plantar fascial fibromatosis Contracture of left ankle Contracture of right ankle [facility]* Diagnosis 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 documented in this encounter [facility]* Diagnosis 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 Contracture of right ankle Type 2 diabetes mellitus without complication, 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 (CMS/HCC) documented in this encounter [facility]* Diagnosis 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 Contracture of right ankle documented in this encounter [facility]* Diagnosis 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 Contracture of right ankle Stress fracture of right foot, initial encounter documented in this encounter [facility]* Diagnosis Stress fracture of right foot, initial encounter- Primary Type 2 diabetes mellitus without complication, unspecified whether long-term insulin use (CMS/HCC) Accessory navicular bone of right foot documented in this encounter [facility]* Diagnosis Posterior tibial tendonitis of right leg- Primary Accessory navicular bone of left foot Type 2 diabetes mellitus without complication, unspecified whether long-term insulin use (CMS/HCC) Accessory navicular bone of right foot documented in this encounter [facility]* Diagnosis Arthralgia of left temporomandibular joint- Primary Left ear pain Unspecified otalgia Chronic rhinitis Fullness in ear, left documented in this encounter [facility]* Diagnosis 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 Posterior tibial tendonitis of right leg Type 2 diabetes mellitus without complication, 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 (CMS/HCC) documented in this encounter [facility]* Diagnosis Accessory navicular bone of left foot- Primary documented in this encounter [facility]* Diagnosis Pain in right foot- Primary Pain in limb Accessory navicular bone of right foot [facility] Pain Generalized pain documented [facility]* Diagnosis 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 documented in this encounter [facility]* Diagnosis Pre-op evaluation- Primary Preoperative [...] 10:05 AM ESTAssociated Problem(s): BMI 60.0-69.9, adult ([facility]) Assessment: diet and exercise encouraged BMI 62 * Assessment & Plan Note - Ary Rocha APRN.CNP - 12/28/2024 10:05 AM ESTAssociated Problem(s): Diabetes mellitus without complication ([facility]) Assessment: managed with oral med, stable Follows up with PCP BG at home 120's HgbA1c 6.6% * Assessment & Plan Note - Ary Rocha APRN.CNP - 12/28/2024 10:04 AM ESTAssociated Problem(s): Acid reflux Assessment: managed with med, stable Follows up with PCP documented [facility] this encounter [facility]* Diagnosis Pain- Primary Generalized pain Pain Generalized pain Pre-op evaluation- Primary Preoperative examination, unspecified Gastroesophageal reflux disease, unspecified whether esophagitis present Diabetes mellitus without complication ([facility]) Type II or unspecified type diabetes mellitus without mention of complication, not stated as uncontrolled BMI 60.0-69.9, adult ([facility]) Body Mass Index 60.0-69.9, adult AQUILES (obstructive sleep apnea) Obstructive sleep apnea (adult) (pediatric) documented in this encounter [facility] note* Diagnosis Pre-op evaluation- Primary Preoperative examination, unspecified Gastroesophageal reflux disease, unspecified whether esophagitis present Diabetes mellitus without complication (HCC) Type II or unspecified type diabetes mellitus without mention of complication, not stated as uncontrolled BMI 60.0-69.9, adult ([facility]) Body Mass Index 60.0-69.9, adult AQUILES (obstructive sleep apnea) Obstructive sleep apnea (adult) (pediatric) S/P foot surgery, right- Primary Accessory navicular bone of right foot documented in this encounter [facility] note* Diagnosis Pre-op evaluation- Primary Preoperative examination, unspecified Gastroesophageal reflux disease, unspecified whether esophagitis present Diabetes mellitus without complication (HCC) Type II or unspecified type diabetes mellitus without mention of complication, not stated as uncontrolled BMI 60.0-69.9, adult ([facility]) Body Mass Index 60.0-69.9, adult AQUILES (obstructive sleep apnea) Obstructive sleep apnea (adult) (pediatric) S/P foot surgery, right- Primary documented in this encounter [facility] note* Diagnosis Pre-op evaluation- Primary Preoperative examination, unspecified Gastroesophageal reflux disease, unspecified whether esophagitis present Diabetes mellitus without complication (HCC) Type II or unspecified type diabetes mellitus without mention of complication, not stated as uncontrolled BMI 60.0-69.9, adult ([facility]) Body Mass Index 60.0-69.9, adult AQUILES (obstructive sleep apnea) Obstructive sleep apnea (adult) (pediatric) S/P foot surgery, right- Primary Accessory navicular bone of right foot documented in this encounter [facility] note* Diagnosis Pre-op evaluation- Primary Preoperative examination, unspecified Gastroesophageal reflux disease, unspecified whether esophagitis present Diabetes mellitus without complication (HCC) Type II or unspecified type diabetes mellitus without mention of complication, not stated as uncontrolled BMI 60.0-69.9, adult ([facility]) Body Mass Index 60.0-69.9, adult AQUILES (obstructive sleep apnea) Obstructive sleep apnea (adult) (pediatric) S/P foot surgery, right- Primary documented in this encounter [facility] note* Diagnosis Pre-op evaluation- Primary Preoperative examination, unspecified Gastroesophageal reflux disease, unspecified whether esophagitis present Diabetes mellitus without complication (HCC) Type II or unspecified type diabetes mellitus without mention of complication, not stated as uncontrolled BMI 60.0-69.9, adult ([facility]) Body Mass Index 60.0-69.9, adult AQUILES (obstructive sleep apnea) Obstructive sleep apnea (adult) (pediatric) S/P foot surgery, right- Primary S/P foot surgery, right documented in this encounter [facility] note* Diagnosis Pre-op evaluation- Primary Preoperative examination, unspecified Gastroesophageal reflux disease, unspecified whether esophagitis present Diabetes mellitus without complication (HCC) Type II or unspecified type diabetes mellitus without mention of complication, not stated as uncontrolled BMI 60.0-69.9, adult ([facility]) Body Mass Index 60.0-69.9, adult AQUILES (obstructive sleep apnea) Obstructive sleep apnea (adult) (pediatric) S/P foot surgery, right- Primary documented in this encounter [facility] note* Diagnosis Pre-op evaluation- Primary Preoperative examination, unspecified Gastroesophageal reflux disease, unspecified whether esophagitis present Diabetes mellitus without complication (HCC) Type II or unspecified type diabetes mellitus without mention of complication, not stated as uncontrolled BMI 60.0-69.9, adult ([facility]) Body Mass Index 60.0-69.9, adult AQUILES (obstructive sleep apnea) Obstructive sleep apnea (adult) (pediatric) S/P foot surgery, right documented in this encounter [facility] note* Diagnosis Capsulitis of metatarsophalangeal (MTP) joint of right foot- Primary documented in this encounter [facility] note* Diagnosis Pre-op evaluation- Primary Preoperative examination, unspecified Gastroesophageal reflux disease, unspecified whether esophagitis present Diabetes mellitus without complication (HCC) Type II or unspecified type diabetes mellitus without mention of complication, not stated as uncontrolled BMI 60.0-69.9, adult ([facility]) Body Mass Index 60.0-69.9, adult AQUILES (obstructive sleep apnea) Obstructive sleep apnea (adult) (pediatric) S/P foot surgery, right- Primary S/P foot surgery, right documented in this encounter [facility] note* Diagnosis Pre-op evaluation- Primary Preoperative examination, unspecified Gastroesophageal reflux disease, unspecified whether esophagitis present Diabetes mellitus without complication (HCC) Type II or unspecified type diabetes mellitus without mention of complication, not stated as uncontrolled BMI 60.0-69.9, adult (HCC) Body Mass Index 60.0-69.9, adult AQUILES (obstructive sleep apnea) Obstructive sleep apnea (adult) (pediatric) S/P foot surgery, right documented in this encounter [facility] note* Diagnosis Capsulitis of metatarsophalangeal (MTP) joint of right foot- Primary Type 2 diabetes mellitus without complication, unspecified whether long-term insulin use documented in this encounter [facility] note* Diagnosis Pre-op evaluation- Primary Preoperative examination, unspecified Gastroesophageal reflux disease, unspecified whether esophagitis present Diabetes mellitus without complication (HCC) Type II or unspecified type diabetes mellitus without mention of complication, not stated as uncontrolled BMI 60.0-69.9, adult ([facility]) Body Mass Index 60.0-69.9, adult AQUILES (obstructive sleep apnea) Obstructive sleep apnea (adult) (pediatric) Sinus tarsitis, right- Primary documented in this encounter [facility] note* Diagnosis Pre-op evaluation- Primary Preoperative examination, unspecified Gastroesophageal reflux disease, unspecified whether esophagitis present Diabetes mellitus without complication (HCC) Type II or unspecified type diabetes mellitus without mention of complication, not stated as uncontrolled BMI 60.0-69.9, adult ([facility]) Body Mass Index 60.0-69.9, adult AQUILES (obstructive sleep apnea) Obstructive sleep apnea (adult) (pediatric) S/P foot surgery, right- Primary Chronic pain of right ankle documented in this encounter [facility] note* Diagnosis Pre-op evaluation- Primary Preoperative examination, unspecified Gastroesophageal reflux disease, unspecified whether esophagitis present Diabetes mellitus without complication (HCC) Type II or unspecified type diabetes mellitus without mention of complication, not stated as uncontrolled BMI 60.0-69.9, adult ([facility]) Body Mass Index 60.0-69.9, adult AQUILES (obstructive sleep apnea) Obstructive sleep apnea (adult) (pediatric) Chronic pain of right ankle documented in this encounter [facility] note* Diagnosis Pre-op evaluation- Primary Preoperative examination, unspecified Gastroesophageal reflux disease, unspecified whether esophagitis present Diabetes mellitus without complication (HCC) Type II or unspecified type diabetes mellitus without mention of complication, not stated as uncontrolled BMI 60.0-69.9, adult ([facility]) Body Mass Index 60.0-69.9, adult AQUILES (obstructive sleep apnea) Obstructive sleep apnea (adult) (pediatric) S/P foot surgery, right- Primary Chronic pain of right ankle [facility] Diagnosis Capsulitis of metatarsophalangeal (MTP) joint of right foot- Primary Contracture of right ankle Posterior tibial tendonitis of right leg documented [facility] encounter [facility] Narrative - Reported* Type Description Date Medical History Acquired hypothyroidism Medical Historyvitamin D deficiencySurgical Historycholecystectomy Hospitalization HistoryNo Hospitalization history information [facility] Other History of Present illness Narrative* Pato [...] History: Past Medical History: Diagnosis Date Diabetes ([facility]) Ear problems GERD (gastroesophageal reflux [...] 2 diabetes mellitus without complication, 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 Pt denies n/f/v/c and has negative pain [...] Medrol pack Patient is to receive a [place] style brace AFO to the right foot [...] Ibuprofen Pato Avelar DPM documented in this [facility] course Narrative No data available for this section [facility] Discharge instructions No data available for this section [facility] Discharge instructions Additional Instructions DISCHARGE INSTRUCTIONS FOR [...] operative site FOLLOW UP Phone numbers: Office [phone] [ ][facility] Work Phone: Progress note No data available for this section [facility] (narrative)* Diagnostic Procedure Only (Routine) - ClosedSpecialtyDiagnoses / ProceduresReferred By ContactReferred To ContactXR IMAGING Diagnoses Pain Procedures XR FOOT GENERAL 3V AP/LAT/OBL RIGHT RADEX FOOT COMPLETE MINIMUM 3 VIEWS Sean Mata DPM [id number] [place] [address] [place] [address] Referral IDStaOhioHealth [facility] DateExpiration DateVisits RequestedVisits [id number] Auto-Generated Referral [facility] for referral (narrative)* Diagnostic Procedure Only (Routine) - ClosedSpecialtyDiagnoses / ProceduresReferred By ContactReferred To ContactXR IMAGING Diagnoses Pain Procedures XR FOOT GENERAL 3V AP/LAT/OBL RIGHT RADEX FOOT COMPLETE MINIMUM 3 VIEWS Sean Mata DPM [id number] [place] [address] [place] [address] Referral IDStatusasonStshepardsville DateExpiration DateVisits RequestedVisits [id number] Auto-Generated Referral [facility] for referral (narrative)No reason for referral information availableAshtab[facility] Work Phone: Reason for visit Narrative* Diagnostic Procedure Only (Routine) - ClosedSpecialtyDiagnoses / ProceduresReferred By ContactReferred To ContactXR IMAGING Diagnoses Pain Procedures XR FOOT GENERAL 3V AP/LAT/OBL RIGHT RADEX FOOT COMPLETE MINIMUM 3 VIEWS Sean Mata DPM [address] [place] [address] [place] [address] Referral IDStatusReasonStart DateExpiration DateVisits RequestedVisits [id number] Auto-Generated Referral [facility] for visit Narrative* Diagnostic Procedure Only (Routine) - ClosedSpecialtyDiagnoses / ProceduresReferred By ContactReferred To Contact XR IMAGING Diagnoses S/P foot surgery, right Procedures XR FOOT GENERAL 3V AP/LAT/OBL RIGHT RADEX FOOT COMPLETE MINIMUM 3 VIEWS Sean Mata DPM [address] [place] [address] Phone: tel: fax: [place] [address] Referral IDStatusReasonStshepardsville DateExpiration DateVisits RequestedVisits [id number] Auto-Generated Referral [facility] for visit Narrative* Diagnostic Procedure Only (Routine) - ClosedSpecialtyDiagnoses / ProceduresReferred By ContactReferred To Contact XR IMAGING Diagnoses S/P foot surgery, right Procedures XR FOOT GENERAL 3V AP/LAT/OBL RIGHT RADEX FOOT COMPLETE MINIMUM 3 VIEWS Sean Mata DPM [address] [place] [address] Phone: tel: fax: [place] [address] Referral IDStatusReasonStart DateExpiration DateVisits RequestedVisits [id number] Auto-Generated Referral [facility] for visit Narrative* MRI/CT (Routine) - ClosedSpecialty Diagnoses / ProceduresReferred By ContactReferred To ContactMR IMAGING Diagnoses Chronic pain of right ankle Procedures MRI ANKLE WO IVCON RIGHT MRI ANY JT LOWER EXTREM W/O CONTRAST MATRL Sean Mata DPM [address] [place] [address] Phone: tel: fax: [facility] [address] Referral IDStatusReasonStdaniela DateExpiration DateVisits RequestedVisits [id number] Auto-Generated Referral / [facility] Summary Purpose Family History No Family [...] bone of right foot Pato Avelar DPM [address] [address] Referral IDStatusReasonStart DateExpiration DateVisits RequestedVisits [id number]/ Additional Source Comments REASON FOR VISIT (unrecogniz ed section and content) ReasonCommentsConsent Or InstructionsPre op- rt kidnerReasonCommentsPost-op1st post op rt ftReasonCommentsPost-op16 D post op rt ftReasonCommentsPost-op29 D rt ft F/UReasonCommentsFollow-upER FOLLOW UPReasonCommentsOtitis ExternaNew Patient : Otitis externa left earReasonCommentsFoot PainF/U rt ft painReasonOnset Date CommentsCasting For Braces Or Loyrvwzpo88/22/2024easonCommentsRadiology XR ReasonCommentsPainReasonCommentsSurgical FollowupReasonCommentsPre-Op ExamReason CommentsRadio Gen RMPReasonCommentsPost OpReasonCommentsPatient UpdateReason CommentsFoot PainReasonCommentsPost OpPainReasonCommentsFollow-upRt edlReason CommentsPost OpReasonCommentsAnkle Pain INFORMATION SOURCE (unrecogn ized section and content) DATE CREATED AUTHOR 05/06/2023 [facility] DATE CREATED AUTHOR AUTHOR'S ORGANIZ ATION 04/26/2024 [facility] DATE CREATED AUTHOR AUTHOR'S ORGANIZ ATION 07/01/2024 [facility] EPIC DATE CREATED AUTHOR AUTHOR'S ORGANIZ ATION 09/12/2024 [facility] DATE CREATED AUTHOR AUTHOR'S ORGANIZ ATION 09/13/2024 [facility] DATE CREATED AUTHOR AUTHOR'S ORGANIZ ATION 09/15/2024 [facility] DATE CREATED AUTHOR AUTHOR'S ORGANIZ ATION 12/09/2024 [facility] DATE CREATED AUTHOR AUTHOR'S ORGANIZ ATION 07/15/2025 [facility] DATE CREATED AUTHOR AUTHOR'S ORGANIZ ATION 09/05/2025 [facility] DATE CREATED AUTHOR AUTHOR'S ORGANIZ ATION 09/07/2025 [facility] EPIC Care Teams (unrecognized sec tion and content) Team Status: Active Member Role Status Dates LORI Alvarez Primary Care Provider Active Team Status: Active Member Role Status Dates Monique Alicia Lien , LIBRARY CIRCULATION TECHNICIAN-C Primary Care Provider Active Start: June 15, 2025 Merline French ProviderActiveStart: June 15, 2025 Neo Mclaughlin MDAdmit ProviderActiveStart: June 15, 2025 Neo Mclaughlin MDAttending ProviderActiveStart: June 15, 2025 Team Status: Inactive Member Role Status Dates Monique Dudley NP-C Attending Provider Active S tart: February 27, 2024 End: February 26lorene Emmanuel , LIBRARY CIRCULATION TECHNICIAN-CPrimary Care ProviderActiveStart: February 27, 2024 End: February 27, 2024 Team Status: Active Member Role Status Dates Monique Dudley NP-C Attending Provider Active S tart: February 27, 2024 Monique Emmanuel , LIBRARY CIRCULATION TECHNICIAN-CPrimary Care ProviderActiveStart: February 27, 2024 Team Status: Inactive Member Role Status Dates Monique Emmanuel , LIBRARY CIRCULATION TECHNICIAN-C Primary Care Provider Active Start: May 16, 2024 End: May 16, 2024ADAN Hernandezttending ProviderActiveStart: May 16, 2024 End: May 16, 2024Team MemberRelationshipSpecialtyStart DateEnd Date Erich Garcia MD [address] [place] [phone] PCP - GeneralFamily Medicine07/24/24 Monique Emmanuel MD [address] [place] [address] Referring Physicianmily Medicine03/29/24 Monique Emmanuel MD [address] [place] [address] Referring Physicianmily Medicine07/24/24 Jaime Woods DO [address] [place] [address] Otolaryngology07/24/24Team MemberRelationshipSpecialtyStart DateEnd Erich Garcia MD [address] [place] [phone] PCP - GeneralFamily Medicine07/24/24 Monique Emmanuel MD [address] [place] [address] Referring PhysicianFamily Medicine03/29/24 Monique Emmanuel MD [address] [place] [address] Referring PhysicianFami Medicine07/24/24 Jaime Woods DO [address] [place] [address] Otolaryngology07/24/24Team MemberRelationshipSpecialtyStart DateEnd Erich Garcia MD [address] [place] [phone] PCP - GeneralFamily Medicine07/24/24 Monique Emmanuel MD [address] [place] [address] Referring PhysicianFamily Medicine03/29/24 Monique Emmanuel MD [address] [place] [address] Referring PhysicianFami Medicine07/24/24 Jaime Woods DO [address] [place] [address] Otolaryngology07/24/24Team MemberRelationshipSpecialtyStart End Erich Garcia MD [address] [place] [phone] PCP - GeneralFamily Medicine07/24/24 Monique Emmanuel MD [address] [place] [address] Referring PhysicianFamily Medicine03/29/24 Monique Emmanuel MD [address] [place] [address] Referring PhysicianFami Medicine07/24/24 Jaime Woods DO [address] [place] [address] Otolaryngology07/24/24Team MemberRelationshipSpecialtyStart DateEnd Erich Garcia MD [address] [place] [phone] PCP - GeneralFamily Medicine07/24/24 Monique Emmanuel MD [address] [place] [address] Referring PhysicianFamily Medicine03/29/24 Monique Emmanuel MD [address] [place] [address] Referring PhysicianFaquincy medical center Medicine07/24/24 Jaime Woods DO [address] [place] [address] Otolaryngology07/24/24Team MemberRelationshipSpecialtyStart End Erich Garcia MD [address] [place] [phone] PCP - GeneralFamily Medicine07/24/24 Monique Emmanuel MD [address] [place] [address] Referring PhysicianFamily Medicine03/29/24 Monique Emmanuel MD [address] [place] [address] Referring PhysicianFami Medicine07/24/24 Jaime Woods DO [address] [place] [address] Otolaryngology07/24/24Team MemberRelationshipSpecialtyStart DateEnd Erich Garcia MD [address] [place] [phone] PCP - GeneralFamily Medicine07/24/24 Monique Emmanuel MD [address] [place] [address] Referring PhysicianFamily Medicine03/29/24 Monique Emmanuel MD [address] [place] [address] Referring PhysicianFami Medicine07/24/24 Jaime Woods DO [address] [place] [address] Otolaryngology07/24/24Team MemberRelationshipSpecialtyStart DateEnd Date Erich Garcia MD [address] [place] [address] PCP - GeneralFamily Medicine07/24/24 Monique Emmanuel MD [address] [place] [address] Referring Physicianmily Medicine03/29/24 Monique Emmanuel MD [address] [place] [address] Referring PhysicianFamily Medicine07/24/24 Jaime Woods DO [address] [facility] [place] [address] Otolaryngology07/24/24Team MemberRelationshipSpecialtyStart DateEnd Date Unallocated, Noms MD Ousmane [address] [place] [address] PCP - GeneralFamily Medicine03/29/24 Monique Emmanuel MD [address] [place] [address] Referring Physicianmi Medicine03/29/24Team MemberRelationshipSpecialtyStart DateEnd Date Erich Garcia MD [address] [place] [phone] PCP - Generalmily Medicine07/24/24 [place] [address] [place] [address] Referring Physicianmily Medicine03/29/24 Monique Emmanuel MD [address] [place] [address] Referring PhysicianFamily Medicine07/24/24 Jaime Woods DO [address] [place] [address] Otolaryngology07/24/24Team MemberRelationshipSpecialtyStart DateEnd Date Unallocated, Noms MD Ousmane [address] [place] [address] PCP - GeneralFamily Medicine03/29/24 Monique Emmanuel MD [address] [place] [address] Referring Physicianmily Medicine03/29/24Team MemberRelationshipSpecialtyStart DateEnd Date Erich Garcia MD [address] [place] [phone] PCP - GeneralFamily Medicine07/24/24 Monique Emmanuel MD [address] [place] [address] Referring PhysicianFamily Medicine03/29/24 Monique Emmanuel MD [address] [place] [address] Referring PhysicianFamily Medicine07/24/24 Jaime Woods DO [address] [place] [address] Otolaryngology07/24/24Team MemberRelationshipSpecialtyStart DateEnd Date Erich Garcia MD [address] [place] [phone] PCP - GeneralFamily Medicine07/24/24 Monique Emmanuel MD [address] [place] [address] Referring PhysicianFamily Medicine03/29/24 Monique Emmanuel MD [address] [place] [address] Referring PhysicianFamily Medicine07/24/24 Jaime Woods DO [address] [place] [address] Otolaryngology07/24/24Team MemberRelationshipSpecialtyStart DateEnd Date Erich Garcia MD [address] [place] [phone] PCP - GeneralFamily Medicine07/24/24 Monique Emmanuel MD [address] [place] [address] Referring PhysicianFamily Medicine03/29/24 Monique Emmanuel MD [address] [place] [address] Referring PhysicianFamily Medicine07/24/24 Jaime Woods DO [address] [place] [address] Otolaryngology07/24/24Team MemberRelationshipSpecialtyStart DateEnd Date Unallocated, Keily Romeo MD [address] [place] [address] PCP - GeneralFamily Medicine/ Erich Garcia MD [address] [place] [phone] PCP - GeneralFamily Medicine07/24/24 Monique Emmanuel MD [address] [place] [address] Referring PhysicianFamily Medicine03/29/24 Monique Emmanuel MD [address] [place], [place] [phone] Referring PhysicianFamily Medicine07/24/24 Jaime Woods DO [address] [place] [address] Otolaryngology07/24/24Team MemberRelationshipSpecialtyStart DateEnd Date Monique Emmanuel CNP [address] [place] [address] PCP - GeneralInternal Medicine12/17/24Team MemberRelationshipSpecialtyStart Date End Date Monique Emmanuel CNP [address] [place] [address] PCP - GeneralInternal Medicine12/17/24Team MemberRelationshipSpecialtyStart Date End Date Monique Emmanuel CNP [address] [place] [address] PCP - GeneralInternal Medicine12/17/24Team MemberRelationshipSpecialtyStart Date End Date Monique Emmanuel CNP [address] [facility] [place] [address] PCP - GeneralInternal Medicine12/17/24Team MemberRelationshipSpecialtyStart Date End Date Monique Emmanuel CNP [address] [facility] [place] [address] PCP - GeneralInternal Medicine12/17/24Team MemberRelationshipSpecialtyStart Date End Date Monique Emmanuel CNP [address] [facility] [place] [address] PCP - GeneralInternal Medicine12/17/24Team MemberRelationshipSpecialtyStart Date End Date Monique Emmanuel CNP [address] [facility] [place] [address] PCP - GeneralInternal Medicine12/17/24Team MemberRelationshipSpecialtyStart Date End Date Monique Emmanuel CNP [address] [facility] [place] [address] PCP - GeneralInternal Medicine12/17/24 Team Status: Inactive Member Role Status Dates Monique Emmaneul NP-C Primary Care Provider Active Start: February 05, 2025 End: February 05, 2025Nisreen Garcia ProviderActiveStart: February 05, 2025 End: February 05, 2025Team MemberRelationshipSpecialtyStart DateEnd Date Monique Emmanuel CNP [address] [facility] [place] [address] PCP - GeneralInternal Medicine12/17/24Team MemberRelationshipSpecialtyStart Date End Date Monique Emmanuel CNP [address] [facility] [place] [address] PCP - GeneralInternal Medicine12/17/24Team MemberRelationshipSpecialtyStart Date End Date Monique Emmanuel CNP [address] [place] [address] PCP - GeneralInternal Medicine12/17/24Team MemberRelationshipSpecialtyStart Date End Date Erich Garcia MD [address] [place] [phone] PCP - GeneralFamily Medicine07/24/24 Monique Emmanuel MD [address] [place] [address] Referring PhysicianFamily Medicine03/29/24 Monique Emmanuel MD [address] [place], [place] [phone] Referring PhysicianFamily Medicine07/24/24 Jaime Woods DO [address] [facility] [place] [address] Otolaryngology07/24/24Team MemberRelationshipSpecialtyStart DateEnd Date Erich Garcia MD [address] [place] [phone] PCP - GeneralFamily Medicine07/24/24 Monique Emmanuel MD [address] [place] [address] Referring PhysicianFamily Medicine03/29/24 Monique Emmanuel MD [address] [place] [address] Referring PhysicianFamily Medicine07/24/24 Jaime Woods DO [address] [place] [address] Otolaryngology07/24/24Team MemberRelationshipSpecialtyStart DateEnd Date Monique Emmanuel, IRENE [address] [facility] [place] [address] PCP - GeneralInternal Medicine12/17/24Team MemberRelationshipSpecialtyStart Date End Date Monique Emmanuel, IRENE [address] [place] [address] PCP - GeneralInternal Medicine12/17/24Team MemberRelationshipSpecialtyStart Date End Date Monique Emmanuel, IRENE [address] [facility] [place] [address] PCP - GeneralInternal Medicine12/17/24Team MemberRelationshipSpecialtyStart Date End Date Monique Emmanuel, IRENE [address] [facility] [place] [address] PCP - GeneralInternal Medicine12/17/24Team MemberRelationshipSpecialtyStart Date End Date Monique Emmanuel, IRENE [address] [facility] [place] [address] PCP - GeneralInternal Medicine12/17/24Team MemberRelationshipSpecialtyStart Date End Date Monique Emmanuel, IRENE [address] [facility] [place] [address] PCP - GeneralInternal Medicine12/17/24Team MemberRelationshipSpecialtyStart Date End Date Monique Emmanuel IRENE [address] [place] [phone] PCP - GeneralInternal Medicine12/17/24 Team Status: Active [...] or prosecute any alcohol or drug abuse patient.[facility] HospitalIn the event this information is protected by the Federal Confidentiality of Alcohol and Drug Abuse Patient Records regulations: The Federal rules restrict any use of the information to criminally investigate or prosecute any alcohol or drug abuse patient.[facility] HospitalIn the event this information is protected by the Federal Confidentiality of Alcohol and Drug Abuse Patient Records regulations: The Federal rules restrict any use of the information to criminally investigate or prosecute any alcohol or drug abuse patient.[facility] HospitalIn the event this information is protected by the Federal Confidentiality of Alcohol and Drug Abuse Patient Records regulations: The Federal rules restrict any use of the information to criminally investigate or prosecute any alcohol or drug abuse patient.[facility] HospitalIn the event this information is protected by the Federal Confidentiality of Alcohol and Drug Abuse Patient Records regulations: The Federal rules restrict any use of the information to criminally investigate or prosecute any alcohol or drug abuse patient.[facility] HospitalIn the event this information is protected by the Federal Confidentiality of Alcohol and Drug Abuse Patient Records regulations: The Federal rules restrict any use of the information to criminally investigate or prosecute any alcohol or drug abuse patient.[facility] HospitalIn the event this information is protected by the Federal Confidentiality of Alcohol and Drug Abuse Patient Records regulations: The Federal rules restrict any use of the information to criminally investigate or prosecute any alcohol or drug abuse patient.[facility] HospitalIn the event this information is protected by the Federal Confidentiality of Alcohol and Drug Abuse Patient Records regulations: The Federal rules restrict any use of the information to criminally investigate or prosecute any alcohol or drug abuse patient.[facility] HospitalIn the event this information is protected by the Federal Confidentiality of Alcohol and Drug Abuse Patient Records regulations: The Federal rules restrict any use of the information to criminally investigate or prosecute any alcohol or drug abuse patient.[facility] HospitalIn the event this information is protected by the Federal Confidentiality of Alcohol and Drug Abuse Patient Records regulations: The Federal rules restrict any use of the information to criminally investigate or prosecute any alcohol or drug abuse patient.[facility] HospitalIn the event this information is protected by the Federal Confidentiality of Alcohol and Drug Abuse Patient Records regulations: The Federal rules restrict any use of the information to criminally investigate or prosecute any alcohol or drug abuse patient.[facility] HospitalIn the event this information is protected by the Federal Confidentiality of Alcohol and Drug Abuse Patient Records regulations: The Federal rules restrict any use of the information to criminally investigate or prosecute any alcohol or drug abuse patient.[facility] HospitalIn the event this information is protected by the Federal Confidentiality of Alcohol and Drug Abuse Patient Records regulations: The Federal rules restrict any use of the information to criminally investigate or prosecute any alcohol or drug abuse patient.[facility] HospitalIn the event this information is protected by the Federal Confidentiality of Alcohol and Drug Abuse Patient Records regulations: The Federal rules restrict any use of the information to criminally investigate or prosecute any alcohol or drug abuse patient.[facility] HospitalIn the event this information is protected by the Federal Confidentiality of Alcohol and Drug Abuse Patient Records regulations: The Federal rules restrict any use of the information to criminally investigate or prosecute any alcohol or drug abuse patient.[facility] HospitalIn the event this information is protected by the Federal Confidentiality of Alcohol and Drug Abuse Patient Records regulations: The Federal rules restrict any use of the information to criminally investigate or prosecute any alcohol or drug abuse patient.[facility] HospitalIn the event this information is protected by the Federal Confidentiality of Alcohol and Drug Abuse Patient Records regulations: The Federal rules restrict any use of the information to criminally investigate or prosecute any alcohol or drug abuse patient.[facility] HospitalIn the event this information is protected by the Federal Confidentiality of Alcohol and Drug Abuse Patient Records regulations: The Federal rules restrict any use of the information to criminally investigate or prosecute any alcohol or drug abuse patient.[facility] HospitalIn the event this information is protected by the Federal Confidentiality of Alcohol and Drug Abuse Patient Records regulations: The Federal rules restrict any use of the information to criminally investigate or prosecute any alcohol or drug abuse patient.[facility] HospitalIn the event this information is protected by the Federal Confidentiality of Alcohol and Drug Abuse Patient Records regulations: The Federal rules restrict any use of the information to criminally investigate or prosecute any alcohol or drug abuse patient.[facility] HospitalIn the event this information is protected by the Federal Confidentiality of Alcohol and Drug Abuse Patient Records regulations: The Federal rules restrict any use of the information to criminally investigate or prosecute any alcohol or drug abuse patient.[facility] HospitalIn the event this information is protected by the Federal Confidentiality of Alcohol and Drug Abuse Patient Records regulations: The Federal rules restrict any use of the information to criminally investigate or prosecute any alcohol or drug abuse patient.[facility] HospitalIn the event this information is protected by the Federal Confidentiality of Alcohol and Drug Abuse Patient Records regulations: The Federal rules restrict any use of the information to criminally investigate or prosecute any alcohol or drug abuse patient.[facility] HospitalIn the event this information is protected by the Federal Confidentiality of Alcohol and Drug Abuse Patient Records regulations: The Federal rules restrict any use of the information to criminally investigate or prosecute any alcohol or drug abuse patient.[facility] HospitalIn the event this information is protected by the Federal Confidentiality of Alcohol and Drug Abuse Patient Records regulations: The Federal rules restrict any use of the information to criminally investigate or prosecute any alcohol or drug abuse patient.[facility] HospitalIn the event this information is protected by the Federal Confidentiality of Alcohol and Drug Abuse Patient Records regulations: The Federal rules restrict any use of the information to criminally investigate or prosecute any alcohol or drug abuse patient.[facility] HospitalIn the event this information is protected by the Federal Confidentiality of Alcohol and Drug Abuse Patient Records regulations: The Federal rules restrict any use of the information to criminally investigate or prosecute any alcohol or drug abuse patient.[facility] HospitalIn the event this information is protected by the Federal Confidentiality of Alcohol and Drug Abuse Patient Records regulations: The Federal rules restrict any use of the information to criminally investigate or prosecute any alcohol or drug abuse patient.[facility] HospitalIn the event this information is protected by the Federal Confidentiality of Alcohol and Drug Abuse Patient Records regulations: The Federal rules restrict any use of the information to criminally investigate or prosecute any alcohol or drug abuse patient.[facility] HospitalIn the event this information is protected by the Federal Confidentiality of Alcohol and Drug Abuse Patient Records regulations: The Federal rules restrict any use of the information to criminally investigate or prosecute any alcohol or drug abuse patient.[facility] FOR RECORDS PERTAINING TO PATIENTS WHO [...] BE BASED ON THE PRIMARY CLINICAL RECORDS. [facility] date[facility]IT[facility]. provides no warranty or guarantee of the accuracy or completeness of information in this document.
--- OUTSIDE RECORDS SUMMARY | 2025-10-20 16:19 | XMS_ITS | Patient Health Record ---
Author Organization [facility] Address [address] [place] [address] Care Team Providers Care Wheel Lacer And Truer Name Role Phone Grant Reinaldo Primary Care Provider Lizzette Jones Unavailable Dr. Peter Ascencio Unavailable [phone] Mey Duong Unavailable [phone] Tina Carrasco Unavailable [phone] Reason For Referral No Information Encounters Encounter Location Date Provider Diagnosis [facility] [address] [place] [address] 02/28/2025 Mey Duong Acute gingivitis, plaque induced K05.00 [address] [place] [address] 09/02/2025 Lizzette Paredes Dental caries on pit and fissure surface penetrating into dentin K02.52 [facility] [address] [place] [address] 09/17/2025 Tina Carrasco Dental caries on pit [...] 08:30:00 AM, [address], [place], [address], Provider Name:Tina Carrasco, 01/20/2026 09:30:00 AM, [address], [place], [address], Provider Name:Ly Edwards, 02/21/2026 08:30:00 AM, [address], [place], [address], Insurance Providers Payer Name Payer Address Payer Phone Subscriber Number Group Number Insured Name Patient Relationship to Insured Coverage Start Date Coverage End Date ANTHEM Primary [address] [place] [address] [id number] NOEL ROCHE Self - patient is the insured 3 [employer] [address] [place] [id number] ROCHEuse - patient is the spouse of the [id number] 2022
--- OUTSIDE RECORDS SUMMARY | 2025-10-20 16:20 | XMS_ITS | Patient Health Record ---
Author Organization [facility] Address [address] [place] [address] Care Team Providers Care Eyelet Operator Name Role Phone Gaurav Snyder Unavailable [phone] Gloria Villafana Unavailable Allergies Allergen (clinical drug ingredient) Drug/Non Drug Allergy documented on EMR Reaction Allergy Type Onset Date Status SULFA (uncoded)hivesAllergyActive Results Component Value Reference Range Notes SCC- PT/OT EVAL AND TREAT 3X /WEEK FOR 6 WEEKS Reviewed date:12/04/2024 03:27:33 PM Interpretation: Performing Lab: Notes/Report: HGB A1C Reviewed date:02/07/2025 11:57:30 AM Interpretation: Performing Lab: Notes/Report: Hgb A1c 6.6 Reason For Referral No Information Medications Medication SIG (Take, Route, Frequency, Duration) Notes Start Date End Date Status celecoxib 200 mg 1 cap(s) orally once a day; Dur ation: 30 days 5Active Social History Tobacco Use: Social History Observation Description Date Details (start date - stop date) Never Smoker NA - NA AUDIT-C (Standard) Question Answer Notes Did you have a drink containing alcohol in the p ast year? No Ntrjbn6UtsurkplnepyavHkqzrjwfWccvnyx Control (Standard) Question Answer Notes Tobacco use: Nonsmoker Problems Problem Type SNOMED Code ICD Code Onset Dates Problem Status W/U Status Risk Notes Problem Localized, primary o steoarthritis of the shoulder region (230277213) Primary osteoarthritis of right shoulder (M19.011) ActiveconfirmedProblemEncounter for other orthopedic aftercare (Z47.89)Active confirmed Vital Signs Height 5'1 in 03/18/2025 Qphijn148 lbs04/8519GVM51. Encounters Encounter Location Date Provider Diagnosis [facility] [address] [place] [address] 11/05/2024 Gaurav Lillian Arthritis of right acromioclavicular joint M19.011 [facility] [address] [facility] [address] [place] [address] [place] [address] 11/12/2024 Gaurav Snyder Encounter for other orthopedic aftercare Z47.89 [facility] [address] [facility] [address] [place] [address] [place] [address] 12/17/2024 [facility] Arthritis of right acromioclavicular joint M19.011 [facility] [address] [facility] [place] [address] 01/28/2025 Gloria laguerreWiggins Encounter for other orthopedic aftercare Z47.89 [facility] [address] [facility] [place] [address] [place] [address] 02/11/2025 [facility] [place] Primary osteoarthritis of right shoulder M19.011 [facility] [address] [facility] [place] [address] [place] [address] 03/18/2025 [facility] Arthritis of right acromioclavicular joint M19.011 [facility] [address] [place] [address] 02/04/2025 [facility] [place] Assessments Encounter Date Diagnosis (ICD Code) Assessment Notes Treatment Notes Treatment Clinical Notes Section Notes 11/05/2024 Arthritis of right acromioclavic ular joint (ICD-10 - M19.011) 11/12/2024Encounter for other orthopedic aftercare (ICD-10 - Z47.89)12/17/2024 Arthritis of right acromioclavicular joint (ICD-10 - M19.011)01/28/2025Encounter for other orthopedic aftercare (ICD-10 - Z47.89)02/11/2025Primary osteoarthritis of right shoulder (ICD-10 - M19.011)03/18/2025rthritis of right acromioclavicular joint (ICD-10 - M19.011) Right rotator cuff tendinitis/bursitis 4+ months status post right distal clavicle excision 11/12/2024Other Patient is doing well after distal [...] continue with physical therapy. She does workat [employer] and has to lift sometimes 50 pounds, [...] She states she did get fired from [employer] so is currently unemployed. We will see [...] Coverage Start Date Coverage End Date [facility] [address] [place] [address] [id number] DELORES ROCHE Spouse - patient is the spouse of the insured Medications Administered Medication Instructions Date of Administration Dosage Notes BUPIVACAINE iUOKUJSZVGZIA12/21/20241 fANZOEYEYAHAL53/17/20252 mLDepo-Medrol mLDepo-Enpgzx43 mLDepo-Yzooan31 mLlidocaine iBzsmbalcpp25/21/20241 kTeefbywkjx44/17/20252 mL Medical (General) History Surgical History Surgery Date(Month/Year) Arthroscopic right shoulder distal clavi david excision 11/05/2024
--- OUTSIDE RECORDS SUMMARY | 2025-10-20 16:20 | XMS_ITS | Patient Health Record ---
Author Organization [facility] in [place] Address [address] [place] [address] Care Team Providers Care Aeronautical Project Engineer Name Role Phone Monique Emmanuel Primary Care Provider [phone] Mo Garcia [phone] Allergies Allergen (clinical drug ingredient) Drug/Non Drug Allergy documented on EMR Reaction Allergy Type Onset Date Status Substance with sulfonamide s tructure and antibacterial mechanism of action (substance) Sulfa Antibiotics rash/hives Drug Allergy Active Results Component Value Reference Range Notes XR lumbar spine 2-3V Reviewed date:09/18/2025 11:19:01 AM Interpretation: Performing Lab: Notes/Report: Source Facility: [place] [address] XRay Report Signed Patient: NOEL PAUL MR#: [id number] : 1990 Acct:[id number] Age/Sex: 35 / F ADM Date: 09/16/25 Loc: RAD Attending Dr: MONIQUE EMMANUEL Ordering Physician: MONIQUE EMMANUEL Date of Service: 09/16/25 Procedure(s): XR lumbar spine 2-3V Accession Number(s): [id number] cc: MONIQUE EMMANUEL [place] [address] Patient Name: NOEL PAUL MRN: [id number] date: 1990 Sex: F Assigned Patient Location: RAD Current Patient Location: RAD Accession/Order Number: [id number] Exam Date: 09/16/2025 11:32 Report Date: 09/16/2025 [...] Adames M.D. 09/16/2025 2:34 PM Dictation Location: [place] [address] Electronically authenticated by: [id number] Y Date: 09/16/2025 14:34 Dictated By: Leisa Adames M.D. Signed By: 09/16/25 1436 DD/ 1434 TD/TT: Cavity Pump Operator: CBC AUTO DIFF Reviewed date:10/23/2024 09:49:43 AM Interpretation: Performing Lab: Notes/Report: [facility] , White Blood Count 13.5 4.0-11.0 10 3/uL Red Blood Count4.974.20-5.40 10 6/wUDnpuvoobhw96.712.0-16.0 g/fKCxqsxjjgog92.7 36.0-48.0 %Mean Corpuscular Tveklj24.981.0-99.0 fLMean Corpuscular Hemoglobin 25.626.7-34.0 pgMean Corpuscular HGB Conc31.229.9-35.2 g/dLRed Cell Distribution Width14.811.0-15.0 %Platelet Aqvqy638499-830 10 3/uLMean Platelet Volume9.49.5- 13.5 fLNeutrophils Percent Auto71.643.0-75.0 %Lymphocytes Percent Auto19.920.5- 60.0 %Monocytes Percent Auto4.91.7-12.0 %Eosinophils Percent Auto2.60.9-7.0 % Basophils Percent Auto0.50.2-2.0 %Immature Granulocytes Pct Auto0.50.0-0.5 % Neutrophils Absolute Auto9.71.4-6.5 10 3/uLLymphocytes Absolute Auto2.71.2-3.8 10 3/uLMonocytes Absolute Auto0.70.3-0.8 10 3/uLEosinophils Absolute Auto0.40.0- 0.7 10 3/uLBasophils Absolute Auto0.10.0-0.1 10 3/uLImmature Granulocytes Abs Auto0.070.00-0.03 10 3/uLPerforming Lab:see noteML - [facility] LBCRP Reviewed date:10/23/2024 09:49:43 AM Interpretation: Performing Lab: Notes/Report: [facility] ,C Reactive Protein3.76<=0.50 mg/dLPerforming Lab:see noteML - [facility] LBPROF CHEM 8 (BAS METB) Reviewed date:10/23/2024 09:49:43 AM Interpretation: Performing Lab: Notes/Report: [facility] ,Ftunaf920729-904 mmol/LPotassium3.43.5-5.1 mmol/GAjidramb11291-292 mmol/LCarbon Hlkbzcz85.821.0-32.0 mmol/LAnion Gap15.0Ukeouxg83517-082 mg/dLBlood Urea Riulnbhq83.07.0-18.0 mg/dLCreatinine0.920.55-1.02 mg/dLEstimated GFR ( Rasheeda>60>=60 mL/min/1.73m 2Estimated GFR (Non- Yamel>60>=60 mL/min/1.73m 2BUN Creatinine Ratio19.4Krlawqb1.48.5-10.1 mg/dLPerforming Lab:see noteML - [facility] LBErythrocyte Sedimentation Rate Reviewed date:10/23/2024 09:49:43 AM Interpretation: Performing Lab: Notes/Report: [facility] ,Erythrocyte Sedimentation Rate82<=20 mm/hrPerforming Lab:see noteUniversity [facility] LBPROF CHEM 8 (BAS METB) Reviewed date:10/29/2024 12:06:57 PM Interpretation: Performing Lab: Notes/Report: [facility] ,Aseilt360518-178 mmol/LPotassium4.03.5-5.1 mmol/DVoawnhgo80914-838 mmol/LCarbon Uclbckm86.121.0-32.0 mmol/LAnion Gap11.9Wutrzok59999-535 mg/dLBlood Urea Bldjbqvk08.07.0-18.0 mg/dLCreatinine0.940.55-1.02 mg/dLEstimated GFR ( Rasheeda>60>=60 mL/min/1.73m 2Estimated GFR (Non- Yamel>60>=60 mL/min/1.73m 2BUN Creatinine Ratio16.7Nmjkewv5.18.5-10.1 mg/dLPerforming Lab:see note - [facility] LBVenous Blood Gas Reviewed date:11/06/2024 11:41:03 AM Interpretation: Performing Lab: Notes/Report: [facility] ,pH VBG7.3877.330-7.833GDI2 VBG44.840.0-52.0 mmHgPerforming Lab:see noteUniversity [facility] LBWhite Blood Cells Reviewed date:11/09/2024 03:15:37 PM Interpretation: Performing Lab: Notes/Report: [facility] ,White Blood CellsSee Below For Report White Blood Cells White [...] 1 Many gram positive cocci. Performing Lab:see note - [facility] LBResult 2 Reviewed date:11/09/2024 03:15:38 PM Interpretation: Performing Lab: Notes/Report: [facility] ,Result 2See Below For Report Result 2 Few gram positive rods. Performing Lab:see note - [facility] LBResult 3 Reviewed date:11/09/2024 03:15:38 PM Interpretation: Performing Lab: Notes/Report: [facility] ,Result 3See Below For Report Result 3 Few gram negative rods. Performing Lab:see note - [facility] LBResult 4 Reviewed date:11/09/2024 03:15:38 PM Interpretation: Performing Lab: Notes/Report: [facility] ,Result 4See Below For Report Result 4 CONTROL SUPERVISOR Performing Lab:see note - [facility] LBGram Stain Evaluation Reviewed date:11/09/2024 03:15:38 PM Interpretation: Performing Lab: Notes/Report: [facility] ,Gram Stain EvaluationSee Below For Report Gram Stain Evaluation This specimen is of good quality and is acceptable for routine Gram Stain Evaluationbacterial culture. Gram Stain Evaluation This specimen is of good quality and is acceptable for routine Performing Lab:see note - [facility] LBLower Respiratory Culture Reviewed date:11/09/2024 03:15:38 PM Interpretation: Performing Lab: Notes/Report: [facility] ,Lower Respiratory CultureSee Below For Report Lower Respiratory Culture WILL FOLLOW Lower Respiratory CultureRoutine respiratory scot Lower Respiratory Culture WILL FOLLOW Lower Respiratory CulturePerformed at: - [facility]Mc[facility] Lower Respiratory Culture WILL FOLLOW Lower Respiratory [address] [place], [place] [id number] Lower Respiratory Culture WILL FOLLOW Lower Respiratory CultureLab Director: Kevin Fuller PhD, Phone: [phone] Lower Respiratory Culture WILL FOLLOW Performing Lab:see note LC - [facility] LB SEE REPORT - Health Policy Analyst Id information not found for OBX-specific remote operations producer legend BNP Reviewed date:11/06/2024 03:02:08 PM Interpretation: Performing Lab: Notes/Report: [facility] ,NT Pro B Type Natriuretic Pept78.0<=450.0 pg/mLPerforming Lab:see noteML - [facility] LBCBC AUTO DIFF Reviewed date:11/06/2024 03:02:08 PM Interpretation: Performing Lab: Notes/Report: [facility] ,White Blood Count15.34.0-11.0 10 3/uLRed Blood Count4.924.20-5.40 10 6/uL Iaqtkednxu83.512.0-16.0 g/qRHieznqynag96.136.0-48.0 %Mean Corpuscular Woxnyl97.5 81.0-99.0 fLMean Corpuscular Yefkquaipm17.426.7-34.0 pgMean Corpuscular HGB Conc 30.429.9-35.2 g/dLRed Cell Distribution Width14.911.0-15.0 %Platelet Xnudo977 150-450 10 3/uLMean Platelet Volume9.59.5-13.5 fLNeutrophils Percent Auto91.2 43.0-75.0 %Lymphocytes Percent Auto6.920.5-60.0 %Monocytes Percent Auto0.51.7- 12.0 %Eosinophils Percent Auto0.10.9-7.0 %Basophils Percent Auto0.30.2-2.0 % Immature Granulocytes Pct Auto1.00.0-0.5 %Neutrophils Absolute Auto14.01.4-6.5 10 3/uLLymphocytes Absolute Auto1.11.2-3.8 10 3/uLMonocytes Absolute Auto0.10.3- 0.8 10 3/uLEosinophils Absolute Auto0.00.0-0.7 10 3/uLBasophils Absolute Auto0.0 0.0-0.1 10 3/uLImmature Granulocytes Abs Auto0.150.00-0.03 10 3/uLPerforming Lab:see noteML - [facility] LBPROF CHEM 8 (BAS METB) Reviewed date:11/06/2024 03:02:08 PM Interpretation: Performing Lab: Notes/Report: [facility] ,Lnuwmj976633-576 mmol/LPotassium3.83.5-5.1 mmol/LDidjsief71640-274 mmol/LCarbon Rpkiivq39.621.0-32.0 mmol/LAnion Gap12.7Prygyzx89042-922 mg/dLBlood Urea Qlmsdmep94.07.0-18.0 mg/dLCreatinine1.190.55-1.02 mg/dLEstimated GFR ( Rasheeda>60>=60 mL/min/1.73m 2Estimated GFR (Non- Ame51>=60 mL/min/1.73m 2 BUN Creatinine Ratio12.9Rzxuqah1.88.5-10.1 mg/dLPerforming Lab:see noteML - [facility] LBXR chest 1V Reviewed date:11/06/2024 03:02:08 PM Interpretation: Performing Lab: Notes/Report: Source Facility: [place] [address] XRay Report Signed Patient: NOEL PAUL MR#: [id number] : 1990 Acct:[id number] Age/Sex: 34 / F ADM Date: 11/05/24 Loc: MS 202-[address]: Shannon Garcia M.D. Ordering Physician: Shannon Garcia M.D. Date of Service: 11/05/24 Procedure(s): XR chest 1V Accession Number(s): [id number] cc: MONIQUE EMMANUEL ; Shannon Garcia M.D. [place] [address] Patient Name: NOEL PAUL MRN: [id number] date: 1990 Sex: F Assigned Patient Location: [place] Current Patient Location: [place] Accession/Order Number: [id number] Exam Date: 11/05/2024 19:25 Report Date: 11/05/2024 [...] M.D. Signed By: 11/05/242208 DD/ 06 TD/TT: Cavity Pump Operator:Venous Blood Gas Reviewed date:11/06/2024 11:41:03 AM Interpretation: Performing Lab: Notes/Report: [facility] ,pH VBG7.3267.330-7.976SRJ7 VBG51.840.0-52.0 mmHgPerforming Lab:see noteML - [facility] LBCBC AUTO DIFF Reviewed date:11/06/2024 03:02:08 PM Interpretation: Performing Lab: Notes/Report: [facility] ,White Blood Count17.84.0-11.0 10 3/uLRed Blood Count4.564.20-5.40 10 6/uL Iywzqamsmk36.712.0-16.0 g/eGCzyringorq86.336.0-48.0 %Mean Corpuscular Ipoiuj03.0 81.0-99.0 fLMean Corpuscular Piyynhdtkg14.726.7-34.0 pgMean Corpuscular HGB Conc 30.529.9-35.2 g/dLRed Cell Distribution Width14.911.0-15.0 %Platelet Sxllr600 150-450 10 3/uLMean Platelet Nfjegf38.09.5-13.5 fLNeutrophils Percent Auto85.8 43.0-75.0 %Lymphocytes Percent Auto8.820.5-60.0 %Monocytes Percent Auto4.41.7- 12.0 %Eosinophils Percent Auto0.00.9-7.0 %Basophils Percent Auto0.20.2-2.0 % Immature Granulocytes Pct Auto0.80.0-0.5 %Neutrophils Absolute Auto15.31.4-6.5 10 3/uLLymphocytes Absolute Auto1.61.2-3.8 10 3/uLMonocytes Absolute Auto0.80.3- 0.8 10 3/uLEosinophils Absolute Auto0.00.0-0.7 10 3/uLBasophils Absolute Auto0.0 0.0-0.1 10 3/uLImmature Granulocytes Abs Auto0.140.00-0.03 10 3/uLPerforming Lab:see noteML - [facility] LBCBC AUTO DIFF Reviewed date:11/19/2024 08:28:29 AM Interpretation: Performing Lab: Notes/Report: [facility] ,White Blood Count6.04.0-11.0 10 3/uLRed Blood Count4.654.20-5.40 10 6/uL Mvsbshaooy78.712.0-16.0 g/mHUkvrckzufc28.836.0-48.0 %Mean Corpuscular Xlwbbd73.4 81.0-99.0 fLMean Corpuscular Lonulwveoo73.226.7-34.0 pgMean Corpuscular HGB Conc 30.229.9-35.2 g/dLRed Cell Distribution Width15.211.0-15.0 %Platelet Bbbip956 150-450 10 3/uLMean Platelet Volume9.59.5-13.5 fLNeutrophils Percent Auto59.9 43.0-75.0 %Lymphocytes Percent Auto26.720.5-60.0 %Monocytes Percent Auto8.11.7- 12.0 %Eosinophils Percent Auto4.30.9-7.0 %Basophils Percent Auto0.50.2-2.0 % Immature Granulocytes Pct Auto0.50.0-0.5 %Neutrophils Absolute Auto3.61.4-6.5 10 3/uLLymphocytes Absolute Auto1.61.2-3.8 10 3/uLMonocytes Absolute Auto0.50.3-0.8 10 3/uLEosinophils Absolute Auto0.30.0-0.7 10 3/uLBasophils Absolute Auto0.00.0- 0.1 10 3/uLImmature Granulocytes Abs Auto0.030.00-0.03 10 3/uLPerforming Lab:see noteML - [facility] LBBlood Culture 1 Reviewed date:11/26/2024 08:31:42 AM Interpretation: Performing Lab: Notes/Report: RIGHT AC IV START [facility] ,Blood Culture 1See Below For Report Blood Culture 1 NG5D NO GROWTH AT 5 DAYS. Performing Lab:see noteML - [facility] LBBlood Culture 2 Reviewed date:11/26/2024 08:31:42 AM Interpretation: Performing Lab: Notes/Report: LEFT AC [facility] ,Blood Culture 2See Below For Report Blood Culture 2 NG5D NO GROWTH AT 5 DAYS. Performing Lab:see noteML - [facility] TMLLXV-AmM-4 Ag* Reviewed date:11/19/2024 08:28:29 AM Interpretation: Performing Lab: Notes/Report: [facility] ,SARS-CoV-2 AgNEGATIVENEGATIVE This test has not [...] revoked sooner. Performing Lab:see noteML - [facility] LBCBC AUTO DIFF Reviewed date:11/26/2024 08:31:42 AM Interpretation: Performing Lab: Notes/Report: [facility] ,White Blood Count9.04.0-11.0 10 3/uLRed Blood Count4.684.20-5.40 10 6/uL Hzwlkwsubl72.812.0-16.0 g/eWVevfmcxfsn85.836.0-48.0 %Mean Corpuscular Ykeyek88.9 81.0-99.0 fLMean Corpuscular Bhmmmhlkyb27.226.7-34.0 pgMean Corpuscular HGB Conc 30.429.9-35.2 g/dLRed Cell Distribution Width15.111.0-15.0 %Platelet Ajmvt087 150-450 10 3/uLMean Platelet Volume9.69.5-13.5 fLNeutrophils Percent Auto62.6 43.0-75.0 %Lymphocytes Percent Auto27.220.5-60.0 %Monocytes Percent Auto5.71.7- 12.0 %Eosinophils Percent Auto3.20.9-7.0 %Basophils Percent Auto0.40.2-2.0 % Immature Granulocytes Pct Auto0.90.0-0.5 %Neutrophils Absolute Auto5.61.4-6.5 10 3/uLLymphocytes Absolute Auto2.51.2-3.8 10 3/uLMonocytes Absolute Auto0.50.3-0.8 10 3/uLEosinophils Absolute Auto0.30.0-0.7 10 3/uLBasophils Absolute Auto0.00.0- 0.1 10 3/uLImmature Granulocytes Abs Auto0.080.00-0.03 10 3/uLPerforming Lab:see noteML - [facility] LBPROF 14(COMP METB) Reviewed date:11/26/2024 08:31:42 AM Interpretation: Performing Lab: Notes/Report: [facility] ,Kdldow209010-000 mmol/LPotassium4.23.5-5.1 mmol/EUuszvfss45095-796 mmol/LCarbon Cpqorsl09.821.0-32.0 mmol/LAnion Gap11.6Waditjn41084-041 mg/dLBlood Urea Bevzokhx92.07.0-18.0 mg/dLCreatinine0.790.55-1.02 mg/dLEstimated GFR ( Rasheeda>60>=60 mL/min/1.73m 2Estimated GFR (Non- Yamel>60>=60 mL/min/1.73m 2BUN Creatinine Ratio20.6Xylfwxn4.98.5-10.1 mg/dLBilirubin Total0.50.2-1.0 mg/dL Aspartate Amino Avrwngxkyev6298-54 U/LAlanine Qvpaxocjjwlkbppy0025-05 U/L Alkaline Xjvxwzpygbk8776-633 U/LTotal Protein7.06.4-8.2 g/dLAlbumin Level2.93.4- 5.0 g/dLGlobulin4.1Albumin Globulin Ratio0.7Performing Lab:see noteML - [facility] LBCT soft tissue neck w con Reviewed date:11/26/2024 08:24:16 AM Interpretation: Performing Lab: Notes/Report: Source Facility: [facility] [place] [address] CT Scan Report Signed Patient: NOEL PAUL MR#: [id number] : 1990 Acct:[id number] Age/Sex: 34 / F ADM Date: 11/20/24 Loc: ER Attending Dr: Ordering Physician: Mickie Quijano D.O. Date of Service: 11/20/24 Procedure(s): CT soft tissue neck w con Accession Number(s): [id number] cc: MONIQUE EMMANUEL [place] [address] Patient Name: NOEL PAUL MRN: [id number] date: 1990 Sex: F Assigned Patient Location: ER Current Patient Location: ER Accession/Order Number: [id number] Exam Date: 11/20/2024 21:30 Report Date: 11/20/2024 [...] contrast are recorded int he medical record. Q DOCUMENTATION: At least one of the following [...] M.D. Signed By: 11/20/242331 DD/ 29 TD/TT: Cavity Pump Operator:ALEXANDR jiménez 3V Reviewed date:01/21/2025 08:55:44 AM Interpretation: Performing Lab: Notes/Report: Source Facility: [place] [address] [place] [address] XRay Report Signed Patient: NOEL PAUL MR#: [id number] : 1990 Acct:[id number] Age/Sex: 34 / F ADM Date: 01/19/25 Loc: ER Attending Dr: Ordering Physician: Abdon Weber D.O. Date of Service: 01/19/25 Procedure(s): XR ankle LT min 3V Accession Number(s): [id number] cc: MONIQUE EMMANUEL ; Abdon Weber D.O. The [address] [address] Patient Name: NOEL PAUL MRN: [id number] date: 1990 Sex: F Assigned Patient Location: ER Current Patient Location: ER Accession/Order Number: [id number] Exam Date: 01/19/2025 12:45 Report Date: 01/19/2025 [...] Fermín Wilks M.D.01/19/2025 12:47 PM Dictation Location: [place] [address] Electronically authenticated by: [id number] Y Date: 01/19/2025 12:47 Dictated By: Fermín Wilks M.D. Signed By: 01/19/25 1249 DD/ 1247 TD/TT: Cavity Pump Operator:CBC AUTO DIFF Reviewed date:02/11/2025 04:35:45 PM Interpretation: Performing Lab: Notes/Report: [facility] ,White Blood Count10.94.0-11.0 10 3/uLRed Blood Count5.004.20-5.40 10 6/uL Fzvjymenkq46.612.0-16.0 g/gZDditeftslz87.636.0-48.0 %Mean Corpuscular Qlrxhm82.2 81.0-99.0 fLMean Corpuscular Qlncpxoqte19.226.7-34.0 pgMean Corpuscular HGB Conc 30.329.9-35.2 g/dLRed Cell Distribution Width15.111.0-15.0 %Platelet Bzukn830 150-450 10 3/uLMean Platelet Volume9.29.5-13.5 fLNeutrophils Percent Auto69.5 43.0-75.0 %Lymphocytes Percent Auto20.620.5-60.0 %Monocytes Percent Auto5.31.7- 12.0 %Eosinophils Percent Auto3.40.9-7.0 %Basophils Percent Auto0.70.2-2.0 % Immature Granulocytes Pct Auto0.50.0-0.5 %Neutrophils Absolute Auto7.61.4-6.5 10 3/uLLymphocytes Absolute Auto2.21.2-3.8 10 3/uLMonocytes Absolute Auto0.60.3-0.8 10 3/uLEosinophils Absolute Auto0.40.0-0.7 10 3/uLBasophils Absolute Auto0.10.0- 0.1 10 3/uLImmature Granulocytes Abs Auto0.050.00-0.03 10 3/uLPerforming Lab:see noteML - [facility] LBCBC AUTO DIFF Reviewed date:03/06/2025 11:14:33 AM Interpretation: Performing Lab: Notes/Report: [facility] ,White Blood Count12.34.0-11.0 10 3/uLRed Blood Count4.684.20-5.40 10 6/uL Ysxcrhmadi01.012.0-16.0 g/wJRnbmnkdysr06.736.0-48.0 %Mean Corpuscular Uhshzt00.7 81.0-99.0 fLMean Corpuscular Utmdvkkdrg13.626.7-34.0 pgMean Corpuscular HGB Conc 31.029.9-35.2 g/dLRed Cell Distribution Width15.311.0-15.0 %Platelet Ouzcl984 150-450 10 3/uLMean Platelet Volume9.49.5-13.5 fLNeutrophils Percent Auto70.1 43.0-75.0 %Lymphocytes Percent Auto20.920.5-60.0 %Monocytes Percent Auto5.11.7- 12.0 %Eosinophils Percent Auto3.00.9-7.0 %Basophils Percent Auto0.50.2-2.0 % Immature Granulocytes Pct Auto0.40.0-0.5 %Neutrophils Absolute Auto8.61.4-6.5 10 3/uLLymphocytes Absolute Auto2.61.2-3.8 10 3/uLMonocytes Absolute Auto0.60.3-0.8 10 3/uLEosinophils Absolute Auto0.40.0-0.7 10 3/uLBasophils Absolute Auto0.10.0- 0.1 10 3/uLImmature Granulocytes Abs Auto0.050.00-0.03 10 3/uLPerforming Lab:see noteML - [facility] LBLACTATE or LACTIC ACID Reviewed date:03/06/2025 11:14:33 AM Interpretation: Performing Lab: Notes/Report: [facility] ,Lactate/Lactic Acid1.00.4-2.0 mmol/LPerforming Lab:see noteML - [facility] LBLIPASE Reviewed date:03/06/2025 11:14:33 AM Interpretation: Performing Lab: Notes/Report: [facility] ,Xazrhw72.016.0-77.0 U/LPerforming Lab:see noteML - [facility] LBPREG QUANT HCG Reviewed date:03/06/2025 11:14:33 AM Interpretation: Performing Lab: Notes/Report: [facility] ,HCG Quantitative<1 5-50 0.2-1 WEEK 50-500 1-2 WEEKS 100-5,000 2-3 WEEKS 500-10,000 3-4 WEEKS 1,000-50,000 4-5 WEEKS 10,000-100,000 5-6 WEEKS 15,000-200,000 6-8 WEEKS 10,000-100,000 2-3 MONTHS Performing Lab:see noteML - [facility] LBPROF 14(COMP METB) Reviewed date:03/06/2025 11:14:33 AM Interpretation: Performing Lab: Notes/Report: [facility] ,Ukdzef326056-711 mmol/LPotassium4.13.5-5.1 mmol/OWjpqrpoh61875-761 mmol/LCarbon Kewcywu43.721.0-32.0 mmol/LAnion Gap10.9Vgxzvhn5227-752 mg/dLBlood Urea Nitrogen 16.07.0-18.0 mg/dLCreatinine0.940.55-1.02 mg/dLEstimated GFR ( Rasheeda>60 >=60 mL/min/1.73m 2Estimated GFR (Non- Yamel>60>=60 mL/min/1.73m 2BUN Creatinine Ratio17.9Kwdolrt0.28.5-10.1 mg/dLBilirubin Total0.60.2-1.0 mg/dL Aspartate Amino Iydxzugsvpa8464-51 U/LAlanine Aevaaadvnfqkzqpk5816-20 U/L Alkaline Gzmzwdtfshy0641-193 U/LTotal Protein7.36.4-8.2 g/dLAlbumin Level3.13.4- 5.0 g/dLGlobulin4.2Albumin Globulin Ratio0.7Performing Lab:see noteML - [facility] LBCBC AUTO DIFF Reviewed date:07/12/2025 09:29:39 AM Interpretation: Performing Lab: Notes/Report: [facility] ,White Blood Count10.74.0-11.0 10 3/uLRed Blood Count4.584.20-5.40 10 6/uL Mduhssscwv79.912.0-16.0 g/aLRezuprntdb49.536.0-48.0 %Mean Corpuscular Rsgnqx85.9 81.0-99.0 fLMean Corpuscular Oifycwqvxi92.026.7-34.0 pgMean Corpuscular HGB Conc 31.729.9-35.2 g/dLRed Cell Distribution Width15.411.0-15.0 %Platelet Fzuxe187 150-450 10 3/uLMean Platelet Volume9.29.5-13.5 fLNeutrophils Percent Auto68.8 43.0-75.0 %Lymphocytes Percent Auto22.020.5-60.0 %Monocytes Percent Auto4.11.7- 12.0 %Eosinophils Percent Auto4.00.9-7.0 %Basophils Percent Auto0.60.2-2.0 % Immature Granulocytes Pct Auto0.50.0-0.5 %Neutrophils Absolute Auto7.31.4-6.5 10 3/uLLymphocytes Absolute Auto2.31.2-3.8 10 3/uLMonocytes Absolute Auto0.40.3-0.8 10 3/uLEosinophils Absolute Auto0.40.0-0.7 10 3/uLBasophils Absolute Auto0.10.0- 0.1 10 3/uLImmature Granulocytes Abs Auto0.050.00-0.03 10 3/uLPerforming Lab:see noteML - [facility] LBD-DIMER Reviewed date:07/12/2025 09:29:39 AM Interpretation: Performing Lab: Notes/Report: [facility] ,D Dimer0.24<=0.59 mg/L FEU Increases in [...] and generalized hospitalization. Performing Lab:see noteML - [facility] LBPROF 14(COMP METB) Reviewed date:07/12/2025 09:29:39 AM Interpretation: Performing Lab: Notes/Report: [facility] ,Kfxwvu934839-037 mmol/LPotassium3.73.5-5.1 mmol/YBlgergwp90842-308 mmol/LCarbon Lpsgamo36.721.0-32.0 mmol/LAnion Gap7.1Ffkgznt13808-189 mg/dLBlood Urea Nitrogen 14.07.0-18.0 mg/dLCreatinine0.820.55-1.02 mg/dLEstimated GFR ( Rasheeda>60 >=60 mL/min/1.73m 2Estimated GFR (Non- Yamel>60>=60 mL/min/1.73m 2BUN Creatinine Ratio17.2Cdofqwx3.18.5-10.1 mg/dLBilirubin Total0.60.2-1.0 mg/dL Aspartate Amino Xsakrradede5070-77 U/LAlanine Oocrwfimyvlaetvu2685-90 U/L Alkaline Pxqvqxjezlf5991-316 U/LTotal Protein7.46.4-8.2 g/dLAlbumin Level3.33.4- 5.0 g/dLGlobulin4.1Albumin Globulin Ratio0.8Performing Lab:see noteML - [facility] LBTroponin I High Sensitivity Reviewed date:07/12/2025 09:29:39 AM Interpretation: Performing Lab: Notes/Report: [facility] ,Troponin I High Sensitivity4.44.0-51.3 pg/mL CUT-OFF POINTS HAVE BEEN ESTABLISHED BASED ON THE FOURTH UNIVERSAL DEFINITION OF MYOCARDIAL INFARCTION. THE UPPER REFERENCE LIMIT (URL) OF TROPONIN, DEFINED THE 99TH PERCENTILE OF cTnI DISTRIBUTION IN A REFERENCE POPULATION, HAS BEEN CONFIRMED THE DECISION THRESHOLD FOR IN DIAGNOSIS. 99TH PERCENTILE = 51.4 PG/ML NOTE: HIGH-SENSITIVITY TROPONIN ASSAY IS NOT INTENDED TO BE USED IN ISOLATION BUT SHOULD BE INTERPRETED IN CONJUNCTION WITH OTHER DIAGNOSTIC AND CLINICAL INFORMATION. 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 Measurements Intervals [place] Rate: 81 P: 61 OR: 172 QRS: 54 QRSD: 86 T: 37 QT: 346 QTc: 383 Interpretive Statements 1100 Sinus rhythm 9110 normal ECG Compared to ECG 10/26/2024 10:47:36 No significant changes Electronically Signed On 07-12-2025 20:49:34 EDT by PRADEEP ROLLINS M.D. Dictated By: PRADEEP ROLLINS Signed By: 07/12/252048 DD/ TD/TT: Cavity Pump Operator:XR chest 1V Reviewed date:07/12/2025 09:29:39 AM Interpretation: Performing Lab: Notes/Report: Source Facility: [place] [address] XRay Report Signed Patient: NOEL PAUL MR#: [id number] : 1990 Acct:[id number] Age/Sex: 35 / F ADM Date: 07/11/25 Loc: ER Attending Dr: Ordering Physician: Cain Dee Date of Service: 07/12/25 Procedure(s): XR chest 1V Accession Number(s): [id number] cc: MONIQUE EMMANUEL ; Cain Dee [place] [id number] Patient Name: NOEL PAUL MRN: [id number] date: 1990 Sex: F Assigned Patient Location: ER Current Patient Location: Accession/Order Number: [id number] Exam Date: 07/12/2025 08:39 Report Date: 07/12/2025 08:40 At the request of: CAIN DEE MD Procedure: XR chest 1V Single view chest: CLINICAL HISTORY: CP COMPARISON: Chest 11/05/2024 FINDINGS: Suboptimal due to body habitus. Cardiomegaly or vascular congestion. No consolidation pneumothorax large pleural effusion or free air. XR/XR chest 1V IMPRESSION: CHF FINDINGS. Impression dictated by: Peter White Jr., DCammieOCammie 07/12/2025 8:40 AM Dictation Location: [place] [address] Electronically authenticated by: [id number] Y Date: 07/12/2025 08:40 Dictated By: Peter White M.D. Signed By: 07/12/2543 DD/ TD/TT: Cavity Pump Operator:CBC AUTO DIFF Reviewed date:07/26/2025 10:20:28 AM Interpretation: Performing Lab: Notes/Report: [facility] ,White Blood Count14.34.0-11.0 10 3/uLRed Blood Count4.914.20-5.40 10 6/uL Qnkqojhkse36.212.0-16.0 g/cXGwewxifnks01.036.0-48.0 %Mean Corpuscular Vpjroz64.5 81.0-99.0 fLMean Corpuscular Zkoayxmroc32.826.7-34.0 pgMean Corpuscular HGB Conc 30.529.9-35.2 g/dLRed Cell Distribution Width15.411.0-15.0 %Platelet Obvyj492 150-450 10 3/uLMean Platelet Volume9.39.5-13.5 fLNeutrophils Percent Auto76.6 43.0-75.0 %Lymphocytes Percent Auto15.020.5-60.0 %Monocytes Percent Auto4.91.7- 12.0 %Eosinophils Percent Auto2.70.9-7.0 %Basophils Percent Auto0.40.2-2.0 % Immature Granulocytes Pct Auto0.40.0-0.5 %Neutrophils Absolute Auto10.91.4-6.5 10 3/uLLymphocytes Absolute Auto2.11.2-3.8 10 3/uLMonocytes Absolute Auto0.70.3- 0.8 10 3/uLEosinophils Absolute Auto0.40.0-0.7 10 3/uLBasophils Absolute Auto0.1 0.0-0.1 10 3/uLImmature Granulocytes Abs Auto0.050.00-0.03 10 3/uLPerforming Lab:see noteML - [facility] LBPROF 14(COMP METB) Reviewed date:07/26/2025 10:20:28 AM Interpretation: Performing Lab: Notes/Report: [facility] ,Bqpbnu990590-496 mmol/LPotassium3.83.5-5.1 mmol/VZvrridhl10333-689 mmol/LCarbon Exjtkmu52.621.0-32.0 mmol/LAnion Gap14.7Caveofk2676-058 mg/dLBlood Urea Nitrogen 17.07.0-18.0 mg/dLCreatinine0.840.55-1.02 mg/dLEstimated GFR ( Rasheeda>60 >=60 mL/min/1.73m 2Estimated GFR (Non- Yamel>60>=60 mL/min/1.73m 2BUN Creatinine Ratio20.1Yvkeyqu3.08.5-10.1 mg/dLBilirubin Total0.80.2-1.0 mg/dL Aspartate Amino Pbryzbajyvd6311-94 U/LAlanine Ejiiqtnsgizhxykj8421-06 U/L Alkaline Xaqlrffezwp7157-088 U/LTotal Protein8.36.4-8.2 g/dLAlbumin Level3.53.4- 5.0 g/dLGlobulin4.8Albumin Globulin Ratio0.7Performing Lab:see note - [facility] LBHCG Qualitative* Reviewed date:07/26/2025 10:20:28 AM Interpretation: Performing Lab: Notes/Report: [facility] ,HCG QualitativeNEGATIVENEGATIVEPerforming Lab:see [facility] LBCT head/brain wo con Reviewed date:07/26/2025 10:20:28 AM Interpretation: Performing Lab: Notes/Report: Source Facility: [facility] [place] [address] [place] [address] CT Scan Report Signed Patient: NOEL PAUL MR#: [id number] : 1990 Acct:[id number] Age/Sex: 35 / F ADM Date: 07/25/25 Loc: ER Attending Dr: Ordering Physician: Margarita Vasquez Date of Service: 07/25/25 Procedure(s): CT head/brain wo con Accession Number(s): [id number] cc: MONIQUE EMMANUEL [place] [address] Patient Name: NOEL PAUL MRN: [id number] date: 1990 Sex: F Assigned Patient Location: ED.MAIN Current Patient Location: ED.MAIN Accession/Order Number: [id number] Exam Date: 07/25/2025 19:05 Report Date: 07/25/2025 [...] Wilks M.D. 07/25/2025 7:32 PM Dictation Location: [place] [address] Electronically authenticated by: [id number] Y Date: 07/25/2025 19:32 Dictated By: Fermín Wilks M.D. Signed By: 07/25/251933 DD/ 31 TD/TT: Cavity Pump Operator:XR shoulder RT min 2V Reviewed date:09/05/2025 11:24:00 AM Interpretation: Performing Lab: Notes/Report: Source Facility: [place] [address] [place] [address] XRay Report Signed Patient: NOEL PAUL MR#: [id number] : 1990 Acct:[id number] Age/Sex: 35 / F ADM Date: 09/04/25 Loc: ER Attending Dr: Ordering Physician: Cain Dee Date of Service: 09/04/25 Procedure(s): XR shoulder RT min 2V Accession Number(s): [id number] cc: MONIQUE EMMANUEL ; Cain Dee [address] [id number] Patient Name: NOEL PAUL MRN: [id number] date: 1990 Sex: F Assigned Patient Location: ER Current Patient Location: ED.MAIN Accession/Order Number: [id number] Exam Date: 09/04/2025 21:45 Report Date: 09/04/2025 [...] Prince M.D. 09/04/2025 10:12 PM Dictation Location: [place] [address] Electronically authenticated by: [id number] Y Date: 09/04/2025 22:12 Dictated By: Joshua Prince M.D. Signed By: 09/04/252213 DD/ 11 TD/TT: Cavity Pump Operator:XR hip RT 2V w/ pelvis Reviewed date:09/18/2025 11:16:33 AM Interpretation: Performing Lab: Notes/Report: Source Facility: [place] [address] XRay Report Signed Patient: NOEL PAUL MR#: [id number] : 1990 Acct:[id number] Age/Sex: 35 / F ADM Date: 09/16/25 Loc: RAD Attending Dr: MONIQUE EMMANUEL Ordering Physician: MONIQUE EMMANUEL Date of Service: 09/16/25 Procedure(s): XR hip RT 2V w/ pelvis Accession Number(s): [id number] cc: MONIQUE EMMANUEL [place] [id number] Patient Name: NOEL PAUL MRN: [id number] date: 1990 Sex: F Assigned Patient Location: [facility] Current Patient Location: [facility] Accession/Order Number: [id number] Exam Date: 09/16/2025 11:32 Report Date: 09/16/2025 [...] Adames M.D. 09/16/2025 2:34 PM Dictation Location: [place] [address] Electronically authenticated by: [id number] Y Date: 09/16/2025 14:34 Dictated By: Leisa Adames M.D. Signed By: 09/16/25 1436 DD/ 1434 TD/TT: Cavity Pump Operator:MR lumbar spine wo con Reviewed date:10/02/2025 08:38:25 AM Interpretation: Performing Lab: Notes/Report: Source Facility: [place] [address] [place] [address] Magnetic Resonance Report Signed Patient: NOEL PAUL MR#: [id number] : 1990 Acct:[id number] Age/Sex: 35 / F ADM Date: 10/01/25 Loc: MRI Attending Dr: MONIQUE EMMANUEL Ordering Physician: MONIQUE EMMANUEL Date of Service: 10/01/25 Procedure(s): MR lumbar spine wo con Accession Number(s): [id number] cc: MONIQUE EMMANUEL [address] [address] Patient Name: NOEL PAUL MRN: [id number] date: 1990 Sex: F Assigned Patient Location: MRI Current Patient Location: MRI Accession/Order Number: [id number] Exam Date: 10/01/2025 08:52 Report Date: 10/01/2025 14:23 At the request of: MONIQUE EMMANUEL Procedure: MR lumbar spine wo con MR lumbar spine wo con 10/01/2025 9:37 AM SIGNS AND SYMPTOMS: Chronic low back pain radiating into right hip PROTOCOL: Multiplanar multisequence MR images of the lumbar spine without IV contrast COMPARISON: None. FINDINGS: The bones of the lumbar spine are in anatomic alignment. There is preservation of vertebral body heights and intervertebral disc spaces. The marrow signal is within normal limits. The conus terminates at the inferior endplate of the L1 vertebral body level. No epidural or paraspinous fluid collection is appreciated. At T12-L1: There is a normal disc, central canal, and neural foramen. At L1-L2: There is a normal disc, central canal, and neural foramen. At L2-L3: There is a normal disc, central canal, and neural foramen. At L3-L4: There is a normal disc, central canal, and neural foramen. At L4-L5: There is a mild broad-based disc bulge with facet hypertrophy. There is mild spinal canal stenosis with mild bilateral neural foraminal narrowing. At L5-S1: There is a mild broad-based disc bulge. There is mild spinal canal narrowing with mild bilateral neural foraminal narrowing. MR/MR lumbar spine wo con IMPRESSION: At L4-L5: There is a mild broad-based disc bulge with facet hypertrophy. There is mild spinal canal stenosis with mild bilateral neural foraminal narrowing. At L5-S1: There is a mild broad-based disc bulge. There is mild spinal canal narrowing with mild bilateral neural foraminal narrowing. Impression dictated by: Fermín Wilks M.D. 10/01/2025 2:23 PM Dictation Location: [place] [address] Electronically authenticated by: [id number] Y Date: 10/01/2025 14:23 Dictated By: Fermín Wilks M.D. Signed By: 10/01/25 1426 DD/ 1423 TD/TT: Cavity Pump Operator:INFLUENZA A AND B AG (Not yet reviewed by provider) Interpretation: Performing Lab: Notes/Report: [facility] ,Influenza Virus A AntigenNegative Negative for Flu A protein antigen. Infection due to Flu A cannot be ruled out. Flu A antigen in the sample may be below the detection limit of the test. Influenza Virus B AntigenNegative Negative for Flu B protein antigen. Infection due to Flu B cannot be ruled out. Flu B antigen in the sample may be below the detection limit of the test. Performing Lab:see noteML - [facility] LBSTREPT SCREEN (Not yet reviewed by provider) Interpretation: Performing Lab: Notes/Report: [facility] ,Strep A Antigen ScreenNegativePerforming Lab:see noteML - [facility] LBIRON Reviewed date:08/28/2025 09:42:48 AM Interpretation: Performing Lab: Notes/Report: [facility] ,Iron34.050.0-170.0 ug/dLPerforming Lab:see noteML - [facility] LBCBC AUTO DIFF Reviewed date:08/28/2025 09:42:48 AM Interpretation: Performing Lab: Notes/Report: [facility] ,White Blood Count9.94.0-11.0 10 3/uLRed Blood Count4.824.20-5.40 10 6/uL Xcbsotwryh63.912.0-16.0 g/cKQhgfljhfjh62.636.0-48.0 %Mean Corpuscular Jiheap35.2 81.0-99.0 fLMean Corpuscular Hrtmkqmhxx53.726.7-34.0 pgMean Corpuscular HGB Conc 30.129.9-35.2 g/dLRed Cell Distribution Width15.511.0-15.0 %Platelet Xstlb164 150-450 10 3/uLMean Platelet Volume9.49.5-13.5 fLNeutrophils Percent Auto67.7 43.0-75.0 %Lymphocytes Percent Auto22.120.5-60.0 %Monocytes Percent Auto5.31.7- 12.0 %Eosinophils Percent Auto3.60.9-7.0 %Basophils Percent Auto0.80.2-2.0 % Immature Granulocytes Pct Auto0.50.0-0.5 %Neutrophils Absolute Auto6.71.4-6.5 10 3/uLLymphocytes Absolute Auto2.21.2-3.8 10 3/uLMonocytes Absolute Auto0.50.3-0.8 10 3/uLEosinophils Absolute Auto0.40.0-0.7 10 3/uLBasophils Absolute Auto0.10.0- 0.1 10 3/uLImmature Granulocytes Abs Auto0.050.00-0.03 10 3/uLPerforming Lab:see noteML - [facility] LBXR ankle RT min 3V Reviewed date:06/14/2025 10:35:52 AM Interpretation: Performing Lab: Notes/Report: Source Facility: [place] [address] XRay Report Signed Patient: NOEL PAUL MR#: [id number] : 1990 Acct:[id number] Age/Sex: 34 / F ADM Date: 06/14/25 Loc: RAD Attending Dr: Enoch Burdick D.P.M. Ordering Physician: Enoch Burdick D.P.M. Date of Service: 06/14/25 Procedure(s): XR ankle RT min 3V Accession Number(s): [id number] cc: MONIQUE EMMANUEL ; Enoch Burdick D.P.M. The [place] [id number] Patient Name: NOEL PAUL MRN: [id number] date: 1990 Sex: F Assigned Patient Location: RAD Current Patient Location: RAD Accession/Order Number: [id number] Exam Date: 06/14/2025 10:19 Report Date: 06/14/2025 [...] Adames M.D. 06/14/2025 10:27 AM Dictation Location: [place] [address] Electronically authenticated by: [id number] Date: 06/14/2025 10:27 Dictated By: Leisa Adames M.D. Signed By: 06/14/25 1030 DD/ 1027 TD/TT: Cavity Pump Operator:CT facial bones w con Reviewed date:11/19/2024 08:28:29 AM Interpretation: Performing Lab: Notes/Report: Source Facility: [place] [address] CT Scan Report Signed Patient: NOEL PAUL MR#: [id number] : 1990 Acct:[id number] Age/Sex: 34 / F ADM Date: 11/17/24 Loc: ER Attending Dr: Ordering Physician: Vilma Goncalves Date of Service: 11/17/24 Procedure(s): CT facial bones w con Accession Number(s): [id number] cc: MONIQUE EMMANUEL [place] [id number] Patient Name: NOEL PAUL MRN: [id number] date: 1990 Sex: F Assigned Patient Location: ER Current Patient Location: ER Accession/Order Number: [id number] Exam Date: 11/17/2024 16:00 Report Date: 11/17/2024 [...] M.D. Signed By: 11/17/241656 DD/ 53 TD/TT: Cavity Pump Operator:PROF Banerjee(COMP METB) Reviewed date:11/19/2024 08:28:29 AM Interpretation: Performing Lab: Notes/Report: [facility] ,Mbofku179630-172 mmol/LPotassium4.03.5-5.1 mmol/TEogvubcy89022-109 mmol/LCarbon Pupgmeh30.421.0-32.0 mmol/LAnion Gap12.8Bqbhqpr16872-095 mg/dLBlood Urea Vnedqlur87.07.0-18.0 mg/dLCreatinine0.910.55-1.02 mg/dLEstimated GFR ( Rasheeda>60>=60 mL/min/1.73m 2Estimated GFR (Non- Yamel>60>=60 mL/min/1.73m 2BUN Creatinine Ratio13.2Ojfavfn3.98.5-10.1 mg/dLBilirubin Total0.40.2-1.0 mg/dL Aspartate Amino Esckolbenbz2531-02 U/LAlanine Pmjkwxiitgewkchg4895-18 U/L Alkaline Chlbxlzrazb2217-383 U/LTotal Protein7.36.4-8.2 g/dLAlbumin Level3.13.4- 5.0 g/dLGlobulin4.2Albumin Globulin Ratio0.7Performing Lab:see note - [facility] LBPROF CHEM 8 (BAS METB) Reviewed date:11/06/2024 03:02:08 PM Interpretation: Performing Lab: Notes/Report: [facility] ,Emusjp307781-429 mmol/LPotassium4.23.5-5.1 mmol/NUrlriqsj64051-174 mmol/LCarbon Iowvrms92.221.0-32.0 mmol/LAnion Gap10.9Tqzznwl62557-661 mg/dLBlood Urea Nehoayik65.07.0-18.0 mg/dLCreatinine0.930.55-1.02 mg/dLEstimated GFR ( Rasheeda>60>=60 mL/min/1.73m 2Estimated GFR (Non- Yamel>60>=60 mL/min/1.73m 2BUN Creatinine Ratio18.4Tjlhqlj9.98.5-10.1 mg/dLPerforming Lab:see [facility] LBHCG Qualitative* Reviewed date:11/05/2024 12:33:13 PM Interpretation: Performing Lab: Notes/Report: [facility] ,HCG QualitativeNEGATIVENEGATIVEPerforming Lab:see [facility] LBCBC AUTO DIFF Reviewed date:11/05/2024 12:21:30 PM Interpretation: Performing Lab: Notes/Report: [facility] ,White Blood Count11.84.0-11.0 10 3/uLRed Blood Count4.804.20-5.40 10 6/uL Ocbzfibtzz83.112.0-16.0 g/sPRtgpjsxnsz81.336.0-48.0 %Mean Corpuscular Eqltnn12.0 81.0-99.0 fLMean Corpuscular Pqvwctgomh06.226.7-34.0 pgMean Corpuscular HGB Conc 30.029.9-35.2 g/dLRed Cell Distribution Width15.011.0-15.0 %Platelet Aqogc892 150-450 10 3/uLMean Platelet Volume9.39.5-13.5 fLNeutrophils Percent Auto71.3 43.0-75.0 %Lymphocytes Percent Auto19.520.5-60.0 %Monocytes Percent Auto4.91.7- 12.0 %Eosinophils Percent Auto3.30.9-7.0 %Basophils Percent Auto0.50.2-2.0 % Immature Granulocytes Pct Auto0.50.0-0.5 %Neutrophils Absolute Auto8.41.4-6.5 10 3/uLLymphocytes Absolute Auto2.31.2-3.8 10 3/uLMonocytes Absolute Auto0.60.3-0.8 10 3/uLEosinophils Absolute Auto0.40.0-0.7 10 3/uLBasophils Absolute Auto0.10.0- 0.1 10 3/uLImmature Granulocytes Abs Auto0.060.00-0.03 10 3/uLPerforming Lab:see noteML - [facility] LBECG 12 lead Reviewed date:10/29/2024 12:06:57 PM Interpretation: Performing Lab: Notes/Report: Source Facility: [facility]-[address] [place] [address] [place] [address] Electrocardiograph Report Signed Patient: NOEL PAUL MR#: [id number] : 1990 Acct:[id number] Age/Sex: 34 / F ADM Date: 10/26/24 Loc: PST Attending Dr: Gaurav Snyder M.D. Ordering Physician: Gaurav Snyder M.D. 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 Signed By: 10/28/24 0735 DD/ 1047 TD/TT: Cavity Pump Operator:CBC AUTO DIFF Reviewed date:10/29/2024 12:06:57 PM Interpretation: Performing Lab: Notes/Report: [facility] ,White Blood Count11.14.0-11.0 10 3/uLRed Blood Count4.724.20-5.40 10 6/uL Nasrorrkqh19.912.0-16.0 g/eYIjfhjpzebl64.136.0-48.0 %Mean Corpuscular Svomva22.8 81.0-99.0 fLMean Corpuscular Zxttqgdcwu46.226.7-34.0 pgMean Corpuscular HGB Conc 30.429.9-35.2 g/dLRed Cell Distribution Width14.611.0-15.0 %Platelet Yqeja334 150-450 10 3/uLMean Platelet Volume9.69.5-13.5 fLNeutrophils Percent Auto74.9 43.0-75.0 %Lymphocytes Percent Auto17.120.5-60.0 %Monocytes Percent Auto4.01.7- 12.0 %Eosinophils Percent Auto3.00.9-7.0 %Basophils Percent Auto0.50.2-2.0 % Immature Granulocytes Pct Auto0.50.0-0.5 %Neutrophils Absolute Auto8.31.4-6.5 10 3/uLLymphocytes Absolute Auto1.91.2-3.8 10 3/uLMonocytes Absolute Auto0.40.3-0.8 10 3/uLEosinophils Absolute Auto0.30.0-0.7 10 3/uLBasophils Absolute Auto0.10.0- 0.1 10 3/uLImmature Granulocytes Abs Auto0.060.00-0.03 10 3/uLPerforming Lab:see note - [facility] LBIRON Reviewed date:02/11/2025 04:35:45 PM Interpretation: Performing Lab: Notes/Report: [facility] ,Iron39.050.0-170.0 ug/dLPerforming Lab:see note - [facility] LB GLYCOHEMOGLOBIN A1C Reviewed date:02/11/2025 04:35:45 PM Interpretation: Performing Lab: Notes/Report: [facility] ,Glycohemoglobin A1C6.94.5-6.2 % ADA RECOMMENDED LIMIT 4.0 - 6.0 ADA THERAPEUTIC TARGET < 7.0 ACTION SUGGESTED > 7.0 Estimated Average Blodujh059Csxxzcpdrh Lab:see note - [facility] LB XR chest 2V Reviewed date:07/12/2025 09:29:39 AM Interpretation: Performing Lab: Notes/Report: Source Facility: [place] [address] XRay Report Signed Patient: NOEL PAUL MR#: [id number] : 1990 Acct:[id number] Age/Sex: 35 / F ADM Date: 07/11/25 Loc: ER Attending Dr: Ordering Physician: Cain Dee Date of Service: 07/12/25 Procedure(s): XR chest 2V Accession Number(s): [id number] cc: MONIQUE EMMANUEL ; Cain Dee [place] [address] Patient Name: NOEL PAUL MRN: [id number] date: 1990 Sex: F Assigned Patient Location: ER Current Patient Location: Accession/Order Number: [id number] Exam Date: 07/12/2025 08:40 Report Date: 07/12/2025 [...] Jr., D.O. 07/12/2025 8:42 AM Dictation Location: [place] [address] Electronically authenticated by: [id number] Y Date: 07/12/2025 08:42 Dictated By: Peter White M.D. Signed By: 07/12/2544 DD/ TD/TT: Cavity Pump Operator: Reason For Referral Reason sleep study Diagnosis 1 Snoring (R06.83) Referral Organization [facility] Referring Provider First Name Monique Referring Provider Last Name Danni [facility]erred Provider [facility] Referred Provider Specialty Sleep Medici ne Referral Priority Routine Reason right thigh pain Diagnosis 1 Right leg pain (M79. 604) Referral Organization [facility] Referring Provider First Name Monique Referring Provider Last Name Danni Referring [facility] Referred Provider [facility], Physical Therap y Referred Provider Specialty Physical The rapist Referral Priority Routine Diagnosis 1 Vision abnormalities (H53.9) Referral Organization [facility] Referring Provider First Name Monique Referring Provider Last Name Danni Referring Provider [facility] Referred Provider Melvin Damon Referred Provider Specialty Neurology Referral Priority Routine Reason needs functional cap acity eval for paperwork Diagnosis 1 Sciatica (M54.30) Referral Organization [facility] Referring Provider First Name Monique Referring Provider Last Name Danni Referring Provider [facility] Referred Provider [facility], Physical Therap y Referred Provider Specialty Physical The rapist Referral Priority Routine Diagnosis 1 Abnormal MRI (R93.89 ) Referral Organization [facility] Referring Provider First Name Monique Referring Provider Last Name Danni Referring Provider [facility] Referred Provider NIC JOHNS Referred Provider Specialty Neurosurgery Referral Priority Routine Medications Medication SIG (Take, Route, Frequency, Duration) Notes Start Date End Date Status Mounjaro 5 MG/0.5ML as directed Subcutan eous weekly; Duration: 28 days call for next dose 06/20/2025 ActiveOneTouch Ultra -USE 1 STRIP TO TEST FASTING BLOOD SUGAR ONCE EVERY MORNING; Duration: 90ActiveOneTouch Delica Plus Adzccz45D -USE TO TEST BLOOD SUGAR ONCE EVERY MORNING; Duration: 90ActiveGabapentin 300 MG1 capsule prn Orally twice a day; Duration: 30 days5ActiveOmeprazole 20 MGTAKE 1 CAPSULE BY MOUTH EVERY DAY; Duration: 90ActiveNatural Vitamin D-3 125 MCG (5000 UT)TAKE 1 TABLET BY MOUTH EVERY DAY FOR 30 DAYS; Duration: 90ActiveFerrous Sulfate 325 (65 Fe) MG1 tablet Orally Three times a Week; Duration: 30 days ActiveEscitalopram Oxalate 20 MG1/2 tablet for the first week then 1 tablet Orally Once a day; Duration: 90 daysActiveDexcom G7 Manager Care -USE DIRECTED; Duration: 30ActivetraZODone HCl 100 MGTAKE 1 TABLET BY MOUTH EVERYDAY AT BEDTIME NEEDED; Duration: 90 daysActiveDexcom G7 Sensor -USE DIRECTED; Duration: 28ActivemetFORMIN HCl 500 MGTAKE 1 TABLET BY MOUTH [...] in the past year?Less than monthly (1 point)Jhymws4Zltpgndqbwndno NegativeAUDIT-C (Standard) Question Answer Notes Did you have a drink containing alcohol in the p ast year? No Kjapdt0GzfbnzxautpopqJfgqchjt Problems Problem Type SNOMED Code ICD Code Onset Dates Problem Status W/U Status Risk Notes Problem Hyperglycemia due to type 2 diabetes mellitus (112504074991774) Type 2 diabetes mellitus with hyperglycemia (E11.65) ActiveconfirmedProblemMorbid obesity (disorder) (861461224)Morbid (severe) obesity due to excess calories (E66.01)ActiveconfirmedProblemGout (25148317) Gout, unspecified (M10.9)ActiveconfirmedProblemContracture, unspecified foot (M24.576)ActiveconfirmedProblemTibialis tendinitis (08303646)Posterior tibial tendinitis, left leg (M76.822)ActiveconfirmedProblem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) (276801143)Other congenital malformations of lower limb(s), 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 ProblemGastroesophageal reflux disease (413268075)GERD (gastroesophageal reflux disease) (K21.9)ActiveconfirmedProblemAnxiety (10177902)Anxiety (F41.9)Active confirmedProblemObstructive sleep apnea syndrome (87007147)AQUILES (obstructive sleep apnea) (G47.33)ActiveconfirmedProblemInsomnia (101254080)Insomnia (G47.00) ActiveconfirmedProblemSciatica (06035974)Sciatica (M54.30)ActiveconfirmedProblem Otitis externa of left ear (5424488340607416)External otitis of left ear (H60.92)ActiveconfirmedProblemMRI Scan Abnormal (834408017)Abnormal MRI (R93.89) ActiveconfirmedProblemSialoadenitis (95003092)Salivary gland adenitis (K11.20) ActiveconfirmedProblemMorbid obesity (518987162)Class 3 obesity (E66.01)Active confirmed Vital Signs Temperature 98.1 degrees Fahrenheit 11/22/2024 Svmfgysf93 %11/08/2024lood pressure cifemgwnn67 mm Hg09/16/20254319Ognxmz03 in 09/16/2025lood pressure snqudllr760 mm Hg09/16/20250411Nduxbp937.4 lbs1MI 61.29 kg/m209/16/2025 Encounters Encounter Location Date Provider Diagnosis [place] [address] [place] [address] 06/20/2025 Monique Emmanuel Type 2 diabetes mellitus with hyperglycemia E11.65 ; Class 3 obesity E66.01 and AQUILES (obstructive sleep apnea) G47.33 [facility] [address] [place] [facility] [place] [place] [address] 07/02/2025 Monique Emmanuel Class 3 obesity E66. 01 and Type 2 diabetes mellitus with hyperglycemia E11.65 [facility] [address] [place] [facility] [address] 07/22/2025 Moniquegisselle Emmanuel Right hip pain M25.5 51 ; Morbid (severe) obesity due to excess calories E66.01 and Right leg pain M79.604 [facility] [address] [place] [facility] [place] [place] [address] 08/01/2025 Monique Emmanuel Blurred vision, bilateral H53.8 and Right hip pain M25.551 [place] [address] [place] [facility] [place] [place] [address] 09/16/2025 Monique Emmanuel Sciatica M54.30 [place] [address] [place] [facility] [place] [place] [address] 11/08/2024 Monique Emmanuel Snoring R06.83 and Hypoxia R09.02 [place] [address] [place] [address] 11/22/2024 Mo Garcia Salivary gland adeni tis K11.20 [place] [address] [place] [facility] [place] [place] [address] 12/06/2024 Monique Emmanuel Type 2 diabetes mellitus with hyperglycemia E11.65 and Fatigue R53.83 [place] [address] [place] [facility] [place] [place] [address] 05/09/2025 Monique Emmanuel Class 3 obesity E66. 01 [place] [address] [place] [address] 06/04/2025 Monique Emmanuel Class [address] [facility] [address] [place] [facility] [place] [place] [address] 11/06/[address] [facility] [place] [facility] [place] [address] 11/08/2024amela CramerPneumonia J18.9[facility] [place] [facility] [address]/Pamela CramerType 2 diabetes mellitus with hyperglycemia E11.65[facility] [place] [facility] [address]/10/2025Pamela CramerFatigue R53.83[facility] [place] [facility] [address]/Pamela CramerLow iron E61.1[facility] [place] [facility] [address]/Pamela CramerClass [address] [place] [facility] [place] [address]/ Monique DanniSt. Anthony North [facility] [place] [facility] [place] [address]/Pamela CramerClass [address] [place] [facility] [place] [place] [address]/Pamela CramerType 2 diabetes mellitus with hyperglycemia E11.65[facility] [place] [facility] [place] [place] [address]/Pamela CramerBVSt. Anthony [facility] [place] [place] [address]/07/2025Pamela CramerType 2 diabetes mellitus with hyperglycemia E11.65[facility] [place] [address]/09/2025Pamela CramerVision abnormalities H53.9[facility] [place] [facility] [place] [place] [address]/Pamela CramerLow iron E61.1[facility] [place] [facility] [place] [place] [address]/11/2024Pamela CramerLow iron E61.1[facility] [place] [facility] [place] [place] [address]/Pamela CramerSciatica M54.30[facility] [address] [place] [facility] [place] [place] [address]/Pamela CramerSciatica M54.30[facility] [place] [facility] [place] [address]/03/2025Pamela CramerAbnormal MRI R93.89[facility] [place] [facility] [place] [place] [address]/04/2025Pamela Danni Sciatica M54.30 Assessments Encounter Date Diagnosis (ICD Code) Assessment Notes Treatment Notes Treatment Clinical Notes Section Notes 11/08/2024 Snoring (ICD-10 - R06.83) recent surgery [...] 2 m watch for sleep study results 5Class 3 obesity (ICD-10 - E66.01) work on diet fu 4 weeks 06/04/2025lass 3 obesity (ICD-10 - E66.01)work on diet07/02/2025lass 3 obesity (ICD-10 - E66.01) continue mounjaro fu 3 m work on diet 06/20/2025Type 2 diabetes mellitus with hyperglycemia (ICD-10 - E11.65) 08/01/2025lurred vision, bilateral (ICD-10 - H53.8) comes and goes fu eye dr next week hold trazodone, newer med fu if not improving, neuro consult? 08/01/2025Right hip pain (ICD-10 - M25.551) right thigh continue with PT 09/16/2025Sciatica (ICD-10 - M54.30) CSA signed, OARRS reviewed trial of emir PT didnt help 11/08/2024neumonia (ICD-10 - J18.9)01/14/2025Type 2 diabetes mellitus with hyperglycemia (ICD-10 - E11.65)02/06/2025Fatigue (ICD-10 - R53.83)02/11/2025Low iron (ICD-10 - E61.1)04/09/2025lass 3 obesity (ICD-10 - E66.01)06/17/2025lass 3 obesity (ICD-10 - E66.01)07/15/2025Type 2 diabetes mellitus with hyperglycemia (ICD-10 - E11.65)08/06/2025Type 2 diabetes mellitus with hyperglycemia (ICD-10 - E11.65)08/08/2025Vision abnormalities (ICD-10 - H53.9)08/16/2025Low iron (ICD-10 - E61.1)08/28/2025Low iron (ICD-10 - E61.1)09/18/2025Sciatica (ICD-10 - M54.30) 09/26/2025Sciatica (ICD-10 - M54.30)10/02/2025bnormal MRI (ICD-10 - R93.89) 10/03/2025Sciatica (ICD-10 - M54.30)07/22/2025Right hip pain (ICD-10 - M25.551) kenalog 80007/22/2025Morbid (severe) obesity due to excess calories (ICD-10 - E66.01) continue mounjaro continue work on diet discussed referral to [facility] food diary, bring in one month to review 3 m fu for wt check 07/22/2025Right leg pain (ICD-10 - M79.604)PT vltidgvi77/24/2025lass 3 obesity (ICD-10 - E66.01) work on diet Mounjaro? 07/02/2025Type 2 diabetes mellitus with hyperglycemia (ICD-10 - E11.65) continue mounjaro fu 3m Patient educated on Diabetic diet... Reviewed Hypoglycemia / Hyperglycemia action plan: Instructed to call office if blood sugar above 350 or below 65 consecutively. 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 on the [...] apnea) (ICD-10 - G47.33)Jacinto?06/20/2025 Otherfu cardiology as isuapfsjn65/04/2025Otheron Jacinto, down 5 lbs since last visit [...] Covid-19 PCR (CVDTBH) 07/11/2024 GLYCOHEMOGLOBIN A1C 01/14/2025 INFLUENZA A AND B AG 10/20/2025 IRON 08/28/2025 IRON 08/16/2025 STREPT SCREEN 10/20/2025 XR HIP RT 2 3V W PELVIS 09/16/2025 THYROID PANEL (T4/TSH/FREE T3) 3 Next Appt Details Provider Name:Monique rutledge, 10/22/2025 04:15:00 PM, [address] [facility], [facility] [place], [place], [address], Insurance Providers Payer Name Payer Address Payer Phone Subscriber Number Group Number Insured Name Patient Relationship to Insured Coverage Start Date Coverage End Date [employer] ACC[employer] PPO PLUS LOCAL PLAN [address] [place] [address] [id number] Lonnie Paul Spouse - patient is the spouse of the insured 3 Medications Administered Medication Instructions Date of Administration Dosage Notes Triamcinolone 40 mg/ml mg Medical (General) History Medical History History ICD Code Vitamin D deficiency E55.9 Hypertriglyceridemia E78.1 Hypothyroid E03.9 Diabetes type 2, controlled E11.9 GERD (gastroesophageal reflux disease) K 21.9 Anxiety F41.9 Surgical History Surgery Date(Month/Year) CHOLECYSTECTOMY left foot kidner procedureRt shoulder scope with partial removal of boneRt foot kidner dmybbxnnl34/24Lt foot modified Kidner procedure w/ posterior splint 05/16/2024Steroid injection in feetHospitalization History Reason Date(Month/Year) Gallbladder
--- OUTSIDE RECORDS SUMMARY | 2025-10-20 16:21 | XMS_ITS | Encounter Summary ---
Author Organization [facility] Address [address] [place] [address] Care Team Providers Care Ssis Etl Developer Name Role Phone Monique Razo MD Unavailable [phone] Monique Razo MD Unavailable [phone] Erich Garcia MD Primary Care Provider [phone] Jaime Woods DO Unavailable [phone] Encounter Details DateTypeDepartmentCare Team (Latest Contact Info)Qbygkyznszk73/18/2025Travel Social History Tobacco UseTypesPacks/DayYears UsedDateSmoking Tobacco: NeverPassive Smoke Exposure: NeverSmokeless Tobacco: NeverAlcohol UseStandard Drinks/WeekComments Never0 (1 standard drink = 0.6 oz pure alcohol)CommentsUnknownSex and Gender InformationValueDate RecordedSex Assigned at BirthNot on fileLegal Sex Pfumec2102/09/2023 7:10 PM EDTGender IdentityNot on fileSexual OrientationNot on filedocumented as of this encounter Plan of Treatment DateTypeDepartmentCare Team (Latest Contact Info)Gmszzsxboww00/25/2025 4:40 PM ESTOffice Visit [facility] [address] [place] [address] Pato Koehler DPM [address] [address] documented as of this encounter Visit Diagnoses Not on filedocumented in this encounter Care Teams Team MemberRelationshipSpecialtyStart DateEnd Erich Garcia MD [address] [place] [address] [facility] - [facility]07/24/24 Monique Razo MD [address] [place] [address] Referring PhysicianP[facility] Medicine03/29/24 Monique Razo MD [facility] [place] [address] Referring PhysicianP[facility]sfield General Hospital Medicine07/24/24 Jaime Woods DO [address] [place] [address] Otolaryngology07/24/24documented as of this encounter
--- OUTSIDE RECORDS SUMMARY | 2025-10-20 16:21 | XMS_ITS | Clinical Summary ---
Author Organization [facility] Address [address] [place] [address] Care Team Providers Care Hydro Generation Supervisor Name Role Phone Unavailable Primary Care Provider Unavailabl e Allergies Active AllergyReactionsCriticalityNoted DateCommentsSulfa (Sulfonamide Antibiotics)Hives,NtrqDjx5203/29/2024 Medications MedicationSigDispense QuantityRefillsLast FilledStart DateEnd DateStatus DEXCOM G7 RN ENTEROSTOMAL See administration instructions.09/20/2024ctive escitalopram (Lexapro) 20 mg [...] 1 TABLET BY MOUTH EVERYDAY AT BEDTIME WZNQQE9410/04/2024ctive Social History Tobacco UseTypesPacks/DayYears UsedDateSmoking Tobacco: NeverSmokeless [...] partner or ex-partner?No11/26/2024HQ-2 AnswerDate RecordedPatient Health Questionnaire-2 Refld489regnant CommentsUnknownSex and Gender InformationValueDate RecordedSex Assigned at Zxgjzz5811/26/2024 1:21 PM ESTLegal KsnGxbpvs12/02/2024 2:56 PM ESTGender Identity Ametme2511/26/2024 1:21 PM ESTSexual OrientationHeterosexual or Syjfxxat49/30/2024 1:21 PM EST Last Filed Vital Signs Vital SignReadingTime TakenCommentsBlood Pressure--Pulse--Temperature-- Respiratory Rate--Oxygen Saturation--Inhaled Oxygen Concentration--Nbhrhy338 kg (320 lb)11/26/2024 1:35 PM IHEKxxsce612.5 cm (5' 2 )11/26/2024 1:35 PM ESTBody Mass Index58.5311/26/2024 1:35 PM EST Plan of Treatment Health MaintenanceDue DateLast DoneCommentsDiabetes: Hemoglobin A1C1988 Diabetes: Retinopathy Xjkrtgngu63/11/1998Varicella Vaccines (1 of 2 - 13+ 2-dose series)2001Diabetes: Urine Protein Lvwvcmbyh48/11/2007Pap Smear2009 Adult Rcwumdq3807/08/2010HPV Vaccines (1 - 3-dose SCDM series)2015Cervical Cancer Uaqltiizi07/11/2018HPV/Mkttrs1807/08/2018Hepatitis B Vaccines (3 of 3 - 3- dose series)/, 07/19/2002COVID-19 Vaccine (2024- season)2025Influenza Vaccine (#1)2025Depression Dtqqnlzot62/30/2025 11/26/2024Zoster Vaccines (1 of 2)2038HIB UhpntdjeRbagixbvl80/21/1990IPV KjrleiigApudfnqtj87/20/1993, 10/13/1989, 03/17/1989, Additional history exists Meningococcal B [...]
--- OUTSIDE RECORDS SUMMARY | 2025-10-20 16:21 | XMS_ITS | Clinical Summary ---
Author Organization [facility] Address [address] [facility] [facility], [address] [place] [address] Care Team Providers Care Seamer Panty Hose Name Role Phone Monique Razo APRN - OLIVE PICKER Primary Care Provide r Social History Tobacco UseTypesPacks/DayYears UsedDateSmoking Tobacco: Never Assessed CommentsUnknownSex and Gender InformationValueDate RecordedSex Assigned at Not on fileLegal NucQwirmh42/10/2013 12:42 PM ESTGender IdentityNot on file Sexual OrientationNot on file Plan of Treatment DateTypeDepartmentCare Team (Latest Contact Info)Dennqqchuuw18/30/2025 11:10 AM ESTOffice Visit [facility] [address] [place] [address], [address] [place] [phone] Gary Torres MD [address] [place] [address] [place], [place] [phone] abnormal mri, L4-L5 and L5-S1 bulging discsHealth MaintenanceDue DateLast Done CommentsDepression Rgkdmk8307/08/2000Varicella vaccine (1 of 2 - 13+ 2-dose series)2001HIV fyauyc6407/08/2003Hepatitis C iqksuc4707/08/2006DTaP/Tdap/Td vaccine (1 - Tdap)2007Hepatitis B vaccine (1 of 3 - 19+ 3-dose series) 2007Pap smear2009Cervical cancer syshvl0907/08/2018HPV (without or with Pap)2018Flu vaccine (#1)5COVID-19 Vaccine ( season)2025HPV vaccine (No Doses Required)CompletedHepatitis A vaccineAged OutNo longer eligible based on patient's age to complete this topicHib vaccine Aged OutNo longer eligible based on patient's age to complete this topic Meningococcal (ACWY) vaccineAged OutNo longer eligible based on patient's age to complete this topicMeningococcal B vaccineAged OutNo longer eligible based on patient's age to complete this topicPneumococcal 0-49 years VaccineAged OutNo longer eligible based on patient's age to complete this topicPolio vaccineAged OutNo longer eligible based on patient's age to complete this topic Insurance Care Teams Team MemberRelationshipSpecialtyStart DateEnd Date Monique Razo, REGISTERED DIETICIAN - OLIVE PICKER [facility] [place] [address] PCP - Sficaba63/6/25
--- OUTSIDE RECORDS SUMMARY | 2025-10-20 16:21 | XMS_ITS | Clinical Summary ---
Author Organization [facility] Address [address] [facility] [place] [address] Care Team Providers Care Motorized Squad Captain Name Role Phone Monique Razo MD Unavailable [phone] Monique Razo MD Unavailable [phone] Erich Garcia MD Primary Care Provider [phone] Jaime Woods DO Unavailable [phone] Allergies Active AllergyReactionsCriticalityNoted DateCommentsSulfa AntibioticsRash,Hives Low03/29/2024 Medications [...] be used as directed 21 tablet 5Active Active Problems ProblemNoted DateDiagnosed DateAcid qcetmn1207/21/20245714Cyckfip10/24/2024iabetes mellitus without lmyilchsyfoe65/24/9260Gduxjyee67/24/2024Vitamin D deficiency 07/21/2024 Encounters DateTypeDepartmentCare ZlawGrarstnmovy47/18/3608Voyvvf04/23/2025bstract [facility] [address] [place] [address] Pato Koehler DPM 09/10/2025bstract [facility] [address] [facility] [address] [place] [address] Pato Koehler DPM 09/05/2025 10:40 AM EDTOffice Visit [facility] [address] [facility] [address] [place] [address] Pato Koehler DPM Capsulitis of metatarsophalangeal (MTP) joint of right foot (Primary Dx); Contracture of right ankle; Posterior tibial tendonitis of right leg09/05/2025bstract [facility] [address] [facility] [address] [place] [address] Pato Koehler DPM 09/05/2025amboo flowsheet [facility] [address] [address] Pato Koehler DPM 09/05/20253636Jneleu09/07/2025Travelfrom Last 3 Months Immunizations ImmunizationAdministration DatesNext ZtaRCI8504/16/1993,10/13/1989,05/11/1989, 03/17/1989,1988Hep B, Adolescent or Fgzbirait53/22/2002HiB, unspecified 05/18/1990MMR07/19/2002,10/13/1989OPV04/16/1993,10/13/1989,03/17/1989,1988 Family History Medical HistoryRelationNameCommentsArthritisMotherKathyDiabetesMotherKathyHeart failureMotherKathyHypertensionMotherKathySeizuresSisterTiaRelationNameStatus CommentsFatherAliveMotherKathyDeceasedSisterTia Social History Tobacco UseTypesPacks/DayYears UsedDateSmoking Tobacco: NeverPassive Smoke Exposure: NeverSmokeless Tobacco: Never Tobacco Cessation:Counseling Given: Yes Alcohol UseStandard Drinks/WeekCommentsNever0 (1 standard drink = 0.6 oz pure alcohol)CommentsUnknownSex and Gender InformationValueDate RecordedSex Assigned at BirthNot on fileLegal CcaHdlzol64/15/2023 7:10 PM EDTGender Identity Not on fileSexual OrientationNot on file Last Filed Vital Signs Vital SignReadingTime TakenCommentsBlood Fkyxvfyy360/7911 2:48 PM EST Ucung9490 2:48 PM ESTTemperature--Respiratory Ursr8614 9:58 AM EDTOxygen Saturation--Inhaled Oxygen Concentration--Fqabmc775 kg (310 lb) 09/05/2025 9:58 AM LHSDpybzx000.5 cm (5' 2 )09/05/2025 9:58 AM EDTBody Mass Index56. 9:58 AM EDT Plan of Treatment DateTypeDepartmentCare Team (Latest Contact Info)Zaoykjybplx07/25/2025 4:40 PM ESTOffice Visit [facility] [address] [place] [address] Pato Koehler DPM [address] [address] Insurance Care Teams Team MemberRelationshipSpecialtyStart DateEnd Erich Garcia MD [address] [place] [phone] PCP - GeneralFamily Medicine07/24/24 Monique Razo MD [address] [place] [address] Referring PhysicianFamily Medicine03/29/24 Moniqeu Razo MD [address] [place] [address] Referring PhysicianFamily Medicine07/24/24 Jaime Woods DO [address] [place] [address] Otolaryngology07/24/24
--- OUTSIDE RECORDS SUMMARY | 2025-10-20 16:21 | XMS_ITS | Clinical Summary ---
Author Organization [facility] Address [address] [place] [address] Care Team Providers Care Healthcare Administrative Assistant Name Role Phone Monique Razo CNP Primary Care Provider [phone] Allergies Active AllergyReactionsCriticalityNoted DateCommentsSulfa (Sulfonamide Antibiotics)Hives,IppeKas6003/29/2024 Medications MedicationSigDispense QuantityRefillsLast FilledStart DateEnd DateStatus DEXCOM G7 BALANCE SCREWHEAD POLISHER misc as directed.09/20/2024ctive DEXCOM G7 SENSOR eduin [...] 1 TABLET BY MOUTH EVERYDAY AT BEDTIME ZTYNCM1110/04/2024ctive aspirin 325 mg tablet Indications:Accessory navicular bone [...] Assessment: does not have CPAP yet Acid fugjks4307/21/2024 Assessment & Plan (12/28/2024 10:04 AM EST): Assessment: managed with med, stable Follows up with PCP Tftewrr0507/21/2024iabetes mellitus without neshijdbjigg36/24/2024 Overview (12/26/2024): Type 2 Assessment & Plan (12/28/2024 10:08 AM EST): Assessment: managed with oral med, stable Follows up with PCP BG at home 120's HgbA1c 6.6% Vitamin D jsingnrtzx28/24/2024 Encounters DateTypeDepartmentCare UwpnJgeceoagcej70/07/2025 8:30 AM EDTOffice Visit Orthopaedics [address] [place] [phone] Melvin June W, DPM S/P foot surgery, right (Primary Dx); Chronic pain of right ankle09/03/20259906Dhvuil09/05/2025Travelfrom Last 3 Months Social History Tobacco UseTypesPacks/DayYears UsedDateSmoking Tobacco: NeverSmokeless Tobacco: Never Tobacco Cessation:Counseling Given: Not Answered Alcohol UseStandard Drinks/WeekCommentsNever0 (1 standard drink = 0.6 oz pure alcohol)PHQ-2AnswerDate RecordedPHQ-2 jknrw085rea Deprivation Index AnswerDate RecordedNational Score (1-100), lower number is lower risk86 12/12/2024State Score (1-10), lower number is lower cspv34612/12/2024Data from: https://www.neighborhoodatlas.medicine.[facility].edu/. Last address used for uvlxbtmetbm794Farrukh Montez12/12/2024CommentsUnknownSex and Gender InformationValueDate RecordedSex Assigned at BirthNot on fileLegal SexFemale 02/24/2016 12:17 PM EDTGender IdentityNot on fileSexual OrientationNot on file Last Filed Vital Signs Vital SignReadingTime TakenCommentsBlood Jfrpyhll331/66012/31/2024 10:10 AM EST Vqqjb558712/31/2024 10:10 AM JYJQwsmnqjvvpw17.4 ??C (97.6 ??F)12/31/2024 11:07 AM ESTRespiratory Ydod484412/31/2024 11:00 AM ESTOxygen Rmyvuielex54%12/31/2024 10:10 AM ESTInhaled Oxygen Concentration--Hkmbps772.9 kg (339 lb 4.6 oz)12/28/2024 9:54 AM WZGBtptvj577.5 cm (5' 2 )12/28/2024 9:54 AM ESTBody Mass Index62.06 12/28/2024 9:54 AM EST Plan of Treatment Health MaintenanceDue DateLast YpvcQgyvrffnJaC2A79/11/1993Diabetic Foot Exam 1998Dilated Retinal Exam1998Urine Albumin:Creatinine Ratio1998 DTaP,Tdap,Td Vaccine (6 - Tdap), 10/13/1989, 05/11/1989, Additional history existsAnnual PCP Team Chronic Disease Visit2006 Depression Lqgioefzd86/11/2006HIV Qubjyomfy76/11/2006Hepatitis C Screening 2006LDL Ufpsqvlknkx25/11/2006Pneumococcal Vaccine (1 of 2 - PCV)2007 Cervical Cancer Ayuiwlhqj19/11/2009HPV Vaccine (1 - 3-dose SCDM series) 2015Covid-19 Vaccine ( - 2024- season)2025Influenza Vaccine (#1) 2025Hepatitis B CtqcefuWozmuwvee43/23/2025, 08/16/2024, 07/19/2002 Medical Devices ImplantedTypeAreaManufacturerDevice IdentifierShelf Expiration DateModel / Serial / LotAnchor Suturetak Fiberwire 1 .5 [place] 2 [employer] 26.2mm Suture - [id number] Implanted:Qty: 1 [facility]31[facility] AnchorRight: Bone - Foot [id number] / / [id number] Insurance Care Teams Team MemberRelationshipSpecialtyStart DateEnd Date Monique Razo CNP [address] [place] [phone] PCP - GeneralInternal Medicine1/20/25
--- OUTSIDE RECORDS SUMMARY | 2025-10-20 16:21 | XMS_ITS | Patient Health Record ---
Author Organization [facility] Address [address] [place] [address], [place] [address] Care Team Providers Care Ships Equipment Engineer Name Role Phone Monique Razo CNP Primary Care Provider Unavail able EldaRafy alberts Unavailable [phone] Allergies Allergen (clinical drug ingredient) Drug/Non Drug [...] use. Encounters Encounter [facility] [address] [address] [facility]/14/2025 Rafy Burdick Posterior tibial tendon dysfunction, right M76.[address] [address] 08/19/2025 Rafy Burdick Posterior tibial tendon dysfunction, [...] to aggravation of symptoms[facility]. Patient [facility] [...] today who again relates she is pursuing custodial disability. I related to her after undergoing [...] Name:Rafy mitchell, 11/18/2025 09:00:00 AM, [address] [facility], [address], [address], [place], [address], Insurance Providers Payer Name Payer Address Payer Phone Subscriber Number Group Number Insured Name Patient Relationship to Insured Coverage Start Date Coverage End Date [facility] FEP [address] [place] [address] [id number] Paty Paul - patient is the spouse [...]
[2025-10-20] MEDS: GUAIFENESIN DM 600-30 MG 12 HR TAB 1 TAB PO (16:25)
[2025-10-20 17:26] VITALS: O2SAT 96
== END 2025-10-20 17:28 | disposition home or self-care (01) ==
PROVIDERS: Physician Assistant; Emergency Provider Emergency Medicine; PCP Nurse Practitioner Family
DX: J06.9 Acute upper respiratory infection, unspecified (principal); E11.9 Type 2 diabetes mellitus without complications; Z79.84 Long term (current) use of oral hypoglycemic drugs; Z79.85 Long-term (current) use of injectable non-insulin antidiabetic drugs; E66.01 Morbid (severe) obesity due to excess calories; Z68.44 Body mass index [BMI] 60.0-69.9, adult
CPT/HCPCS: 87070; 87804; 87880; 99284

== ENCOUNTER 2025-11-06 07:31 | Outpatient (OUT) | payer BC, SELFPAY ==
--- OUTSIDE RECORDS SUMMARY | 2025-11-06 07:36 | XMS_ITS | CCD ---
Author Organization [facility] Care Team Providers Care Thermoscrew Operator Name Role Phone Monique Dudley Unavailable [...] Provider LORI Emmanuel Primary Care Provider [phone] MONIQUE EMMANUEL Primary Care Physician Pato Avelar [...] Emmanuel CNP S Primary Care Provider Lien CEMENT CAR DUMPER-C, Monique Vargas Primary Care Provider Marek Dennis DO Emergency Provider Neo Mclaughlin MD Admit Provider Neo Mclaughlin MD Attending Provider [phone] Maryanne Unger RN Other Provider Unavailable Balaji Cohen MD Other Provider Kvng Carcamo MD Other Provider [phone] Inge Adler MD Attending Provider Inge Adler MD Other Provider Merry Nieves APRN Other Provider [phone] Mitch Galaviz MD Other Provider Monique Emmanuel Primary Care Unavailable Neo Mclaughlin Admitting Unavailable Maryanne Unger Consulting Unavailable Mitch Galaviz Attending Unavailab le Maryanne Unger Consulting Unavailable Balaji Cohen Consulting Unavailable Kvng Carcamo Consulting [place] Adler, Inge Consulting Unavailable [place] Consult[employer] Unavailable LIEN, MONIQUE S Primary Care [...] Garcia MD, Erich Barraza Primary Care Provider [phone] PATO AVELAR Attending Unavailable PATO AVELAR Attending Unavailable PATO AVELAR Attending Unavailable PATO AVELAR Referring Unavailable PATO AVELAR Attending Unavailable PATO AVELAR Attending Unavailable PATO AVELAR Attending Unavailable PATO AVELAR Attending Unavailable Allergies Allergy ClassificationReported Allergen(s)Allergy TypeDate of OnsetReaction(s) Facility (1 source)Egg proteinDrug allergyH[facility] [employer] Other (1 source)Sulf-10Drug allergyhiB[facility] [employer] Other (1 source)Sulfonamides (Antibiotic)Drug allergy (disorder)65-67-8525LbjOhio[facility] (20 sources)Sulfonamides (Antibiotic); Translations: [SULFA (SULFONAMIDE ANTIBIOTICS)]Allergy to lopbqgndr08-93-2937FgkjiSCCI Hospital [facility] (8 sources)Egg Derived; Translations: [Egg Derived]Allergy to substance 58-09-9101wnsrdJphvpdxjpOhioHealth [facility] (5 sources)Sulfonamides (Antibiotic); Translations: [sulfa drugs]Drug allergy [facility] (20 sources)Sulfonamides (Antibiotic)Drug Ookryxm15-79-0305ZsitCarondelet Health Medications Current Medications MedicationDrug Class(es)DatesSig (Normalized)Sig (Original)acetaminophen 325 mg / HYDROcodone bitartrate 5 mg oral tablet (2 sources)Opioid AgonistStart: 08-30-2024 End: 38-13-3644zzgi 1 tablet by mouth every eight hours as needed for pain HYDROcodone-acetaminophen ([place]) 5-325 MG tablet Indications: Pain Take 1 tablet by mouth every 8 (eight) hours if needed for moderate pain (PRN pain) for up to 5 days 15 tablet 08/30/2024 09/04/2024 Activeacetaminophen 325 mg / oxyCODONE hydrochloride 5 mg oral tablet (20 sources)Opioid AgonistStart: 12-31-2024 End: 01-47-8343hdrp 1 tablet by mouth every six hours as needed for pain oxyCODONE-acetaminophen (PERCOCET) 5-325 mg tablet Indications: Accessory navicular bone of right foot , Post-op pain Take 1 tablet by mouth every 6 hours as needed for pain for up to 5 days. 20 tablet 12/31/2024 01/05/2025 Active Start: 10-24-2024 End: 47-07-8829mhzo 1 tablet by mouth every eight hours for painoxyCODONE- acetaminophen (Percocet) 5-325 MG tablet Indications: Pain Take 1 tablet by mouth every 8(eight) hours if needed for severe pain for up to 5 days 15 tablet 10/24/2024 10/29/2024 ActiveStart: 09-07-2024 End: 85-46-6016mhrm 1 tablet by mouth every eight hours for painoxyCODONE- acetaminophen (Percocet) 5-325 MG tablet Indications: Pain Take 1 tablet by mouth every 8(eight) hours if needed for severe pain for up to 5 days 15 tablet 09/07/2024 09/12/2024 ActiveBlood-Glucose Sensor (Dexcom G7 Sensor) device (4 sources)Start: 78-36-6342Alnyc-Glucose Sensor (Dexcom G7 Sensor) device Active EACH .ROUTE .MEDSUPPLY February 05, 2025 12:00am As directedBlood- Glucose Transmitter (Dexcom G6 Transmitter) device (4 sources)Start: 79-90-7618Vqbir-Glucose Transmitter (Dexcom G6 Transmitter) device Active EACH .ROUTE .MEDSUPPLY February 05, 2025 12:00am As directed cholecalciferol 0.125 mg oral tablet (20 sources)Vitamin DStart: 88-10-6301dpazwgqbslfiyzf (Vitamin D-3) 125 MCG (5000 UT) tablet 1 (one) time each day at the same time 01/30/2024 Activetake 1 tablet by mouth once dailycholecalciferol (VITAMIN D3) 5,000 unit tab Take 5,000 Units by mouth once daily. ActiveDEXCOM G6 TRANSMITTER eduin (20 sources)Start: 07-09-7521EJWYDC G6 TRANSMITTER eduin as directed. 09/03/2024 ActiveDEXCOM G7 OPERATING ROOM TECHNICIAN misc (20 sources)Start: 13-47-2001RLWABO G7 OPERATING ROOM TECHNICIAN misc as directed. 09/20/2024 ActiveDEXCOM G7 SENSOR eduin (20 sources)Start: 07-93-6271JVCFGD G7 SENSOR eduin 12/12/2024 Activeescitalopram 20 mg oral tablet (20 sources)Serotonin Reuptake InhibitorStart: 62-96-1269ailr 1 tablet by mouth once dailyEscitalopram Oxalate 20 mg tablet Active 20 MG PO Daily June 15, 2025 12:00am Complies with drug therapyStart: 04-25-2024 End: 86-47-5016upgj 1 tablet by mouth once dailyEscitalopram Oxalate 20 mg tablet Discontinued 20 MG PO Daily May 16, 2024 12:00am February 05, 2025 4:47pmStart: 12-69-9437Psemtek 10 MG tablet 1 (one) time each day at the same time 03/12/2024 Activetake 0.5 tablet by mouth once daily, then take 1 tablet by mouth once dailyescitalopram oxalate (LEXAPRO) 20 mg tablet TAKE 1/2 TABLET BY MOUTH ONCE A DAY FOR 1 WEEK THEN 1 TABLET ONCE A DAY Activeferrous sulfate 325 mg oral tablet (3 sources)Start: 43-15-1630qyww 1 tablet by mouth three times weeklyFerrous Sulfate 325 mg (65 mg iron) tablet Active 325 MG PO .three times a week June 15, 2025 12:00am Complies with drug therapyglipiZIDE 5 mg oral tablet (20 sources)SulfonylureaStart: 28-70-3066lwtu 1 tablet by mouth once daily Glipizide 5 mg tablet Active 5 MG PO Daily February 05, 2025 12:00am Complies with drug therapyketorolac tromethamine 10 mg oral tablet (20 sources)Nonsteroidal Anti-inflammatory Drug, Cyclooxygenase InhibitorStart: 70-67-8645meao 1 tablet by mouth every six hours as neededkeTORolac (TORADOL) 10 mg tablet Take 1 tablet by mouth every 6 hours as needed. with food. 20 tablet 01/02/2025 ActivemetFORMIN hydrochloride 500 mg oral tablet (20 sources)BiguanideStart: 85-49-4315oteGRJVIK (Glucophage) 500 MG tablet 1 (one) time each day at the same time 05/23/2023 ActiveStart: 20-90-7990dskk 1 tablet by mouth twice dailyMetformin 500 mg tablet Active 500 MG PO Twice daily February 27, 2024 12:00am Complies with drug therapymethylPREDNISolone (10 sources)CorticosteroidStart: 06-77-4825dnqhrjZKFEFSHnlyej (Medrol Dospak) 4 MG tablets Indications: Capsulitis of metatarsophalangeal (MTP) joint of right foot Follow schedule on MEDROL PACK package instructions to be used as directed 21 tablet 09/05/2025 ActiveStart: 03-07-2025 End: 88-61-1222gbzrnhDHTJCQIgpajq (Medrol Dospak) 4 MG tablets Indications: Capsulitis of metatarsophalangeal (MTP) joint of right foot Follow schedule on MEDROL PACK package instructions to be used as directed 21 tablet 03/07/2025 09/05/2025 Discontinued (Therapy completed)Start: 01-31-5658kgdeotGXIBBWWgojmr (Medrol Dospak) 4 MG tablets Indications: Capsulitis of metatarsophalangeal (MTP) joint of right foot Follow schedule on MEDROL PACK package instructions to be used as directed 21 tablet 03/07/2025 Activeomeprazole 20 mg delayed release oral capsule (20 sources)Proton Pump InhibitorStart: 39-57-6384npxh 1 capsule by mouth once dailyOmeprazole 20 mg capsule,delayed release(DR/EC) Active 20 MG PO Daily February 27, 2024 12:00am Complies with drug therapypromethazine hydrochloride 12.5 mg oral tablet (4 sources)PhenothiazineStart: 12-31-2024 End: 40-02-4603vykt 1 tablet by mouth every eight hours as neededpromethazine (PHENERGAN) 12.5 mg tablet Indications: Accessory navicular bone of right foot , Post-op pain Take 1 tablet by mouth every 8 hours as needed for up to 10 days. 30 tablet 12/31/2024 01/10/2025 ActiveTirzepatide (1 source)Start: 39-50-2058Ctllboegpbh (Mounjaro) 2.5 mg/0.5 mL pen injector Active 2.5 MG SUBCUT every week July 082:00am Complies with drug therapytraZODone hydrochloride 100 mg oral tablet (20 sources)Serotonin Reuptake InhibitorStart: 13-50-1924hifr 1 tablet by mouth once daily at bedtimeTrazodone 100 mg tablet Active 100 MG PO Daily at bedtime February 05, 2025 12:00am Complies with drug therapyStart: 60-46-3342xitk 100 mg by mouth once daily at bedtimeTrazodone Active 100 MG PO Daily at bedtime May 16, 2024 12:00amStart: 04-25-2024 End: 11-45-0835bten 2 tablets by mouth once daily at bedtimeTrazodone 50 mg tablet Discontinued 100 MG PO Daily at bedtime May 16, 2024 12:00am February 05, 2025 4:46pmStart: 89-91-4847dwnCSLguf (Desyrel) 50 MG tablet 1 (one) time each day at the same time 03/12/2024 ActiveUniversal Sling (3 sources)Start: 24-14-7464Ilirxosld Sling Active 0 .Route 1 February 27, 2024 12:00am As directedUniversal Sling unit (4 sources)Start: 79-41-8054Ywjezlenl Sling unit Active 0 .Route 1 February 27, 2024 12:00am As directedVitamin D (3 sources)Start: 65-07-8798Tpyheym D Oral, Daily, Refills(s) 0, Prophylaxis Start Date: 04/25/24 Status: Ordered Completed/Discontinued Medications MedicationDrug Class(es)DatesSig (Normalized)Sig (Original)amoxicillin 875 mg / clavulanate 125 mg oral tablet (4 sources)Penicillin-class AntibacterialStart: 02-05-2025 End: 33-70-4625sicr 1 tablet by mouth every twelve hoursAmoxicillin-Pot Clavulanate 875-125 mg tablet Discontinued 1 TAB PO Every 12 hours 20 February 05, 2025 12:00am June 15, 2025 2:24amaspirin 325 mg oral tablet (20 sources)Platelet Aggregation Inhibitor, Nonsteroidal Anti-inflammatory Drug Start: 12-31-2024 End: 07-89-9700Hgtzoqn 325 mg tablet Discontinued MG PO February 05, 2025 12:00am June 15, 2025 2:24am30 ml bupivacaine hydrochloride 5 mg/ml injection (2 sources)Amide Local AnestheticStart: 04-25-2025 End: 15-92-6476IMIytszxsgv (PF) 0.5 % (5 mg/mL) 1 mL injectionStart: 04-25-2025 End: mL, Injection - FOR ORTHO USE ONLY, ONCE, 1 dose, Starting on Nadya 04/25/25 at 1411, Until Nadya 04/25/25 at 1411celecoxib 200 mg oral capsule (4 sources)Nonsteroidal Anti-inflammatory DrugStart: 02-05-2025 End: 85-34-6729Ygmnomxdj 200 mg capsule Discontinued MG PO February 05, 2025 12:00am June 15, 2025 2:24amphentermine hydrochloride 37.5 mg oral tablet (3 sources)Sympathomimetic Amine AnorecticStart: 06-15-2025 End: 92-57-9884gfip 1 tablet by mouth once dailyPhentermine 37.5 mg tablet Discontinued 37.5 MG PO Daily June 15, 2025 12:00am June 16, 2025 12:28pm triamcinolone acetonide 10 mg/ml injectable suspension (2 sources)CorticosteroidStart: 04-25-2025 End: 57-76-6669qokmugonwrupz acetonide 10 mg injection (KeNALog 10)Start: 04-25-2025 End: 83-71-485174 mg, Injection - FOR ORTHO USE ONLY, ONCE, 1 dose, Starting on Nadya 04/25/25 at 1411, Until Nadya 04/25/25 at 1411 Problems Active Problems Problem ClassificationProblemDateDocumented DateEpisodic/ChronicAnxiety disorders (20 sources)Anxiety; Translations: [Anxiety disorder, unspecified]Onset: 504285-84-0975BfbgpdiYkxqhmji mellitus without complication (20 sources)Type 2 diabetes mellitus without complications; Translations: [Diabetes mellitus]Onset: 46-36-0606YmzperhSbzgnnxla of lipid metabolism (4 sources)Pure hyperglyceridemia; Translations: [PURE HYPERGLYCERIDEMIA]Onset: 52-32-8595AplozymHuhggpfzzm disorders (20 sources)Gastroesophageal reflux disease; Translations: [Gastro-esophageal reflux disease without esophagitis]Onset: 520791-10-5010GmbzpybSmrcjsgv of lower limb (4 sources)Stress fracture of right foot; Translations: [Stress fracture, right foot, initial encounter for fracture]66-67-8267DnfezhegKwdnirnopfx chest pain (7 sources)Chest pain; Translations: [Chest pain, unspecified]Onset: 06-15-2025 44-08-3096CykatmidOykqkkxjuux deficiencies (20 sources)Vitamin D deficiency, unspecified; Translations: [Vitamin D deficiency]Onset: 294050-32-6928XigbizsGyccltqnamceex (20 sources)Arthritis of right acromioclavicular joint; Translations: [Primary osteoarthritis, right shoulder]Onset: 920124-76-3311YaxworjNvrga acquired deformities (2 sources)Contracture of joint of left ankle; Translations: [Contracture, left ankle]71-32-9240BlcpnjwGrinz acquired deformities (10 sources)Contracture of joint of right ankle; Translations: [Contracture, right ankle]13-39-7461XmvkzuaCyzqy congenital anomalies (20 sources)Accessory right tarsal navicular bone; 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), including pelvic girdle]08-27-2024 ChronicOther congenital anomalies (3 sources)Accessory left tarsal navicular bone; 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), including pelvic girdle]65-66-6346HkzeijoMbbfh congenital anomalies (3 sources)Other congenital malformations of lower limb(s), including pelvic girdle; 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), including pelvic girdle]Onset: 62-79-8300ZdjwdsgTrvvc connective tissue disease (2 sources)Calcaneal spur of left foot; Translations: [Calcaneal spur, left foot]83-36-2941ByglkrgoXtghq connective tissue disease (2 sources)Plantar fasciitis; Translations: [Plantar fascial fibromatosis] 21-62-1626NqfgjpiuQrjxa connective tissue disease (6 sources)Tendinitis of right posterior tibial tendon; Translations: [Posterior tibial tendinitis, right leg]53-51-7102AjbgdbrjMmwev connective tissue disease (2 sources)Posterior tibial tendinitis, right leg; Translations: [Posterior tibial tendinitis, right leg]Onset: 65-98-5339VzfxsbglQlgfw connective tissue disease (1 source)Pain in right foot; Translations: [Pain in right foot]12-12-2024 EpisodicOther connective tissue disease (6 sources)Capsulitis of metatarsophalangeal joint of right foot; Translations: [Other enthesopathy of right foot and ankle]44-10-2255RqcvegtgWrcqd nervous system disorders (1 source)Other chronic pain; Translations: [Chronic pain of right ankle]Onset: 74-87-4466IktqvrvJcdcp non-traumatic joint disorders (1 source)Sinus tarsi syndrome of right ankle; Translations: [Pain in right ankle and joints of right foot]38-43-8997RljzjbmsEzajo non-traumatic joint disorders (5 sources)Chronic ankle pain; Translations: [Pain in right ankle and joints of right foot]65-82-0253ElqswlxmPoyfr nutritional; endocrine; and metabolic disorders (20 sources)Morbid obesity; Translations: [Body mass index (BMI) 60.0-69.9, adult]Onset: 143002-15-0489RolytnkWzchi nutritional; endocrine; and metabolic disorders (2 sources)Body mass index 40+ - severely obese; Translations: [Morbid (severe) obesity due to excess calories]58-58-5097OvkzwolLkzvo nutritional; endocrine; and metabolic disorders (1 source)Morbid (severe) obesity due to excess calories; Translations: [Morbid (severe) obesity due to excess calories]Onset: 38-80-3662MktmxmtXwckp nutritional; endocrine; and metabolic disorders (1 source)Body mass index (BMI) 60.0-69.9, adult; Translations: [Body mass index [BMI] 60.0-69.9, adult]Onset: 89-50-8458FdlesyjEzcmd upper respiratory disease (1 source)Allergic rhinitis due to pollen; Translations: [Allergic rhinitis due to pollen]ChronicOther upper respiratory disease (2 sources)Chronic rhinitis; Translations: [Chronic rhinitis]56-23-1096Xezrmic Other upper respiratory infections (4 sources)Chronic sinusitis, unspecified; Translations: [CHRONIC SINUSITIS UNSPECIFIED]Onset: 49-30-5102RrzjcjxLrvbsjhzxr disorders (not diabetes) (3 sources)Hphufbplcmcf90-77-5521EfjemrvaFklyssfe codes; unclassified (20 sources)Obstructive sleep apnea syndrome; Translations: [Obstructive sleep apnea (adult) (pediatric)]Onset: 734987-46-1676NmuihhuJwbypavp codes; unclassified (1 source)Obstructive sleep apnea (adult) (pediatric); Translations: [Obstructive sleep apnea (adult) (pediatric)]Onset: 94-62-6332JjnvupwWdztkgsk codes; unclassified (2 sources)Pain; Translations: [Pain, unspecified]48-47-1800QxikfzloDcnxcmkc codes; unclassified (14 sources)History of operative procedure on foot; Translations: [Other specified postprocedural states]05-42-0481OezehwjfUowk and subcutaneous tissue infections (3 sources)Onychia of finger; Translations: [Cellulitis of right finger] 98-93-3875QyxmverfYrllbzgthwdx (1 source)CONTACT W/AND (SUSP) EXPOS COVID-19; Translations: [CONTACT W/AND (SUSP) EXPOS COVID-19]Onset: 41-08-0948Tzzrrhwmebof (4 sources)Call office on Tuesday to schedule follow-up with Cardiology. Unclassified (2 sources)Call office on Tuesday to schedule follow-up with your Primary Care Provider within 3-5 days of discharge. Past or Other Problems Problem ClassificationProblemDateDocumented DateEpisodic/ChronicAbdominal pain (4 sources)Lower abdominal pain, unspecified; Translations: [Unspecified abdominal pain]Onset: 38-58-1327AbrgxxpqWwyzlbpcxqelsk/social admission (1 source)Dietary counseling and surveillance; Translations: [DIETARY COUNSELING AND SURVEILLANCE]Onset: 96-65-2475LkmsstfoKpofwudik of teeth and jaw (2 sources)Pain of left temporomandibular joint; Translations: [Arthralgia of left temporomandibular joint]57-99-9601DyjptcvkPhntth and vomiting (1 source)Nausea; Translations: [NAUSEA]Onset: 25-15-4596BrkmdaeqRudys connective tissue disease (1 source)Pain in right finger(s)Onset: 03-22-2022 Resolved: 68-86-5448VgisvorvDbirz connective tissue disease (3 sources)Pain in right foot; Translations: [Pain in right foot]Onset: 67-44-2089SjktxnfgKqmsp ear and sense organ disorders (2 sources)Otalgia, left ear; Translations: [Otalgia, unspecified]07-26-2024 EpisodicOther ear and sense organ disorders (2 sources)Ear sensations - finding; Translations: [Other specified disorders of left ear]10-90-0308OmraekoiHlwqy nervous system disorders (1 source)Other acute postprocedural pain; Translations: [Post-op pain]Onset: 03-94-0640DukculcuAewlp non-traumatic joint disorders (2 sources)Pain in right ankle and joints of right foot; Translations: [Chronic pain of right ankle]Onset: 94-11-8503SqprgtvaMhbuanmk codes; unclassified (1 source)Other specified postprocedural states; Translations: [S/P foot surgery, right]Onset: 10-28-8361EewjubikSkutgoru codes; unclassified (1 source)Pain, unspecified; Translations: [Pain]Onset: 55-87-2358Uzauoogj Spondylosis; intervertebral disc disorders; other back problems (4 sources)Sciatica, right side; Translations: [SCIATICA RIGHT SIDE]Onset: 32-33-4028SaqlgghxZqotspo and strains (1 source)Unspecified sprain of right ring finger, initial encounterOnset: 03-22-2022 Resolved: 78-83-8127TvclfrkuWpdcbrqtsdzh (6 sources)Stress fracture of right lscb47-52-1634Uogmmkmtazdx (8 sources)History of operative procedure on ctzx00-18-2191 Results Test NameValueInterpretationReference RangeFacilityCNOVon 26-99-5486TZOHNtnulg Visit (RAYMONDORRM) NOEL PAUL ([id number]) 1990 F [place] Date Time Provider Department 09/03/25 8:30 AM SEAN MATA During your visit today, we recorded the following information about you: Sean Mata DPM 09/03/2025 8:56 AM Signed PRIMARY SERVICE: [facility] Podiatry SUBJECTIVE: Patient is seen today [...] tablet by mouth once daily. 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 DEXCOM G7 SENSOR eduin DEXCOM G6 TRANSMITTER eudin as directed. cholecalciferol (VITAMIN D3) 5,000 unit [...] by mouth once daily. - DEXCOM G7 OPERATING ROOM TECHNICIAN misc as directed. - DEXCOM G7 [...] [F41.9] 07/21/2024 Diabetes mellitus (more content not included)...[facility]io chest PE protocolon 72-88-2370MA angio chest PE protocolKETTERING [facility] [place] [address] [place] Scan Report Signed Patient: Noel Paul MR#: [id number] : 1990 Acct:[id number] Age/Sex: 34 / F ADM Date: 06/15/25 Loc: Room: [address] [place] [address] Type: ADM INOo Attending Dr: Mitch Galaviz [...] Prince M.D. 06/16/2025 12:11 PM Dictation Location: [place] [address] Transcribed By: [facility] 06/16/25 1211 Dictated By: Joshua Prince MD 06/16/25 1208 Signed By: 06/16/25 1211[facility] Physician GroupECG 12 lead ECGon 95-38-0306HUW 12 lead ECGKETTERING [facility]OR[facility] [place] [address] [place] [address] Electrocardiograph Report Signed Patient: Noel Paul MR#: [id number] : 1990 Acct:[id number] Age/Sex: 34 / F ADM Date: 06/15/25 Loc: Room: [address] [place] [address] Type: ADM INOo Attending Dr: Mitch Galaviz [...] rhythm Normal ECG Confirmed by Inge Adler ([id number]) on 06/16/2025 10:58:02 AM Referred By: Electronically Signed By: Inge Adler Transcribed By: MUS Signed By Inge Adler MD 5 1058[facility] Physician GroupGlucose Poct Glucometerson 06-16-2025 Glucose [Mass/Vol]106 mg/dLHolmes Regional Medical Center Physician GroupComment on above: Result Comment: Random Glucose Reference Range is dependent on time and content of last meal. Glucose of more than 200 mg/dL in a nonstressed, ambulatory subject supports the diagnosis of Diabetes Mellitus. PERFORMED BY: [address] [address] PATHOLOGIST HOME SERVICE DEMONSTRATOR CHANEL ROMERO M.D.Performed By: #### GLULS #### Point of Care testing ,Xjqlkhm2Gib7: Cleaned MeterNoNovant Health/NHRMC Physician GroupComment on above: Result Comment: PERFORMED BY: [address] [address] PATHOLOGIST HOME SERVICE DEMONSTRATOR CHANEL ROMERO M.D.Performed By: #### GLULS #### Point of Care testing ,Glucose [Mass/Vol]124 mg/dLHolmes Regional Medical Center Physician GroupComment on above: Result Comment: Random Glucose Reference Range is dependent on time and content of last meal. Glucose of more than 200 mg/dL in a nonstressed, ambulatory subject supports the diagnosis of Diabetes Mellitus.Performed By: #### GLULS #### Point of Care testing ,Tpdphqh4Rly1: Cleaned MeterNoNovant Health/NHRMC Physician GroupComment on above: Result Comment: PERFORMED BY: [place] [address] PATHOLOGIST HOME SERVICE DEMONSTRATOR CHANEL ROMERO M.D.Performed By: #### GLULS #### Point of Care testing ,Glucose [Mass/Vol]125 mg/dLHolmes Regional Medical Center Physician GroupComment on above: Result Comment: Random Glucose Reference Range is dependent on time and content of last meal. Glucose of more than 200 mg/dL in a nonstressed, ambulatory subject supports the diagnosis of Diabetes Mellitus.Performed By: #### GLULS #### Point of Care testing ,Troponin I High Sensitivityon 71-19-2764Yxyhnelx I High Ktidliwusnd2Iqufwt6-17 [facility] Physician GroupComment on above:Result Comment: The Troponin units of report have been changed to meet the Chest Pain Accreditation requirement, element EC5.M1l2. Troponin units are changed from pg/ml to ng/L. Also, the decimal is removed and results are in whole numbers. PERFORMED BY: [place] [address] PATHOLOGIST HOME SERVICE DEMONSTRATOR CHANEL ROMERO M.D.Performed By: #### GLULS #### Point of Care testing ,A1C with Estimated Average Gluon 47-46-0567Vbbjbxb [Mass/Vol]137 mg/dLHolmes Regional Medical Center Physician GroupComment on above:Result Comment: PERFORMED BY: [place] [address] PATHOLOGIST HOME SERVICE DEMONSTRATOR CHANEL ROMERO M.D.Performed By: #### HS TROP #### [place] [address] HULYeT7d (Bld) [Mass fraction]6.4 %High4.3-5.6The [facility] Physician GroupComment on above:Result Comment: Increased risk for diabetes: 5.7 - 6.4 diabetes: >6.4 glycemic control for adults with diabetes: <7.0Performed By: #### HS TROP #### [facility] [address] [place] [address] USABasic Metabolic Panelon 29-17-5843Vtlum gap [Moles/Vol] 10.1 mmol/LNormal6.0-15.0[facility] Physician GroupComment on above:Performed By: #### HS TROP #### [facility] [address] [place] [address] USACalcium [Mass/Vol]8.7 mg/dLNormal8.6-10.3[facility] Physician GroupComment on above:Performed By: #### HS TROP #### [facility] [address] [place] [address] USAChloride [Moles/Vol]103 mmol/SRhikjd52-909Pyu Formerly [facility], [facility] Physician GroupComment on above:Performed By: #### HS TROP #### [facility] [address] [place] [address] USACO2 [Moles/Vol]30.9 mmol/GGqohoi47.0-31.0The [facility], [facility] Physician GroupComment on above:Performed By: #### HS TROP #### [facility] [address] [place] [address] USACreatinine [Mass/Vol]0.86 mg/dLNormal0.60-1.20The [facility], [facility] Physician GroupComment on above:Performed By: #### HS TROP #### [facility] [address] [place] [address] USACreatinine Clr Calc Gkxcehgu667.66NormalThe [facility], [facility] Physician GroupComment on above:Performed By: #### HS TROP #### [facility] [address] [place] [address] USAGFR/1.73 sq M.predicted MDRD (S/P/Bld) [Vol rate/Area] mL/min/{1.73_m2}NormalThe [facility]ly [facility], [facility] Physician GroupComment on above:Performed By: #### HS TROP #### [place] [address] USAGlucose [Mass/Vol]123 mg/tTOuyj76-424Yeh [facility], [facility] Physician GroupComment on above:Result Comment: Random Glucose Reference Range is dependent on time and content of last meal. Glucose of more than 200 mg/dL in a nonstressed, ambulatory subject supports the diagnosis of Diabetes Mellitus. ADA recommended reference rangePerformed By: #### HS TROP #### [place] [address] USAPotassium [Moles/Vol]4.0 mmol/LNormal3.5-5.1The [facility], [facility] Physician GroupComment on above:Performed By: #### HS TROP #### [place] [address] USASodium [Moles/Vol]140 mmol/HPxxtzf429-259Lyp [facility], [facility] Physician GroupComment on above:Performed By: #### HS TROP #### [place] [address] USAUrea nitrogen [Mass/Vol]17 mg/dLNormal7-25The [facility], [facility] Physician GroupComment on above:Performed By: #### HS TROP #### [place] [address] USAComplete Blood Count Auto Diffon 03-64-3342Ghmoxxwsp (Bld) [#/Vol]0.1 10*3/uLNormal0.0-0.2The [facility], [facility] Physician GroupComment on above: Result Comment: PERFORMED BY: [place] [address] PATHOLOGIST HOME SERVICE DEMONSTRATOR CHANEL ROMERO M.D.Performed By: #### HS TROP #### [place] [address] USABasophils/100 WBC (Bld)0.7 %Normal.The [facility], [facility] Physician GroupComment on above:Performed By: #### HS TROP #### [place] [address] USAEosinophils (Bld) [#/Vol]0.3 10*3/uLNormal0.0-0.45The [facility], [facility] Physician GroupComment on above:Performed By: #### HS TROP #### [facility] [address] [place] [address] USAEosinophils/100 WBC (Bld)2.8 %Normal.The [facility], [facility] Physician GroupComment on above:Performed By: #### HS TROP #### [facility] [address] [place] [address] USAErythrocyte distribution width (RBC) [Ratio]17.1 %High 11.9-15.3The [facility], [facility] Physician GroupComment on above:Performed By: #### HS TROP #### [place] [address] USAHematocrit (Bld) [Volume fraction]36.5 %Oalrcv86.0-46.4The [facility], [facility] Physician GroupComment on above:Performed By: #### HS TROP #### [place] [address] USAHemoglobin (Bld) [Mass/Vol]11.6 g/dLLow11.8-15.4The [facility], [facility] Physician GroupComment on above:Performed By: #### HS TROP #### [place] [address] USALymphocytes (Bld) [#/Vol]1.9 10*3/uLNormal1.00-4.8The [facility], [facility] Physician GroupComment on above:Performed By: #### HS TROP #### [place] [address] USALymphocytes/100 WBC (Bld)16.9 %Normal.The [facility], [facility] Physician GroupComment on above:Performed By: #### HS TROP #### [place] [address] USAMCH (RBC) [Entitic mass]25.0 nmHeatvc19.7-34.3The [facility], [facility] Physician GroupComment on above:Performed By: #### HS TROP #### [place] [address] USAMCV (RBC) [Entitic vol]78.4 gXLdt32-979Sxx [facility], [facility] Physician GroupComment on above:Performed By: #### HS TROP #### [place] [address] USAMean Corpuscular HGB Conc31.9 g/dLLow32.0-35.0The [facility], [facility] Physician GroupComment on above:Performed By: #### HS TROP #### [place] [address] USAMonocytes (Bld) [#/Vol]0.6 10*3/uLNormal0.0-0.8The [facility], [facility] Physician GroupComment on above:Performed By: #### HS TROP #### [place] [address] USAMonocytes/100 WBC (Bld)5.6 %Normal.The [facility], [facility] Physician GroupComment on above:Performed By: #### HS TROP #### [place] [address] USANeutrophils (Bld) [#/Vol]8.3 10*3/uLHigh1.8-7.7The [facility], [facility] Physician GroupComment on above:Performed By: #### HS TROP #### [place] [address] USANeutrophils/100 WBC (Bld)74.0 %Normal.The [facility], [facility] Physician GroupComment on above:Performed By: #### HS TROP #### [place] [address] USANRBC%0.1 /100{WBC}Normal0-0.5The [facility]ician [facility] Comment on above:Performed By: #### HS TROP #### [place] [address] USAPlatelet mean volume (Bld) [Entitic vol]7.4 fLNormal 6.3-10.7The [facility], [facility] Physician GroupComment on above:Performed By: #### HS TROP #### [address] [place] [address] USAPlatelets (Bld) [#/Vol]349 10*3/nRQkfkgm323-243Pjw [facility], [facility] Physician GroupComment on above:Performed By: #### HS TROP #### [place] [address] USARBC (Bld) [#/Vol]4.65 10*6/uLNormal3.60-5.00The [facility], [facility] Physician GroupComment on above:Performed By: #### HS TROP #### [place] [address] USAWBC (Bld) [#/Vol]11.2 10*3/uLNormal3.8-11.6The [facility]ly [facility] Physician GroupComment on above:Performed By: #### HS TROP #### [place] [address] USAWhite Blood Count11.2 [CFU]/mLNormal3.8-11.6The [facility]ly [facility], [facility] Physician GroupComment on above:Performed By: #### HS TROP #### [place] [address] USAECG 12 lead ECGon 21-26-4612XOO 12 lead ECGKET[facility]ING [facility] Main [place] [address] [place] [address] Electrocardiograph Report Signed Patient: Noel Paul MR#: [id number] : 1990 Acct:[id number] Age/Sex: 34 / F ADM Date: 06/15/25 Loc: Room: [address] [place] [address] Type: ADM INOo Attending Dr: Mitch Galaviz [...] rhythm Normal ECG Confirmed by Inge Adler ([id number]) on 06/15/2025 7:22:48 PM Referred By: Electronically Signed By: Inge Adler Transcribed By: MUS Signed By Inge Adler MD [address] [place] [address] Physician GroupECG 12 lead ECGKETTERING [facility] Main [place] [id number] Electrocardiograph Report Signed Patient: Noel Paul MR#: [id number] : 1990 Acct:[id number] Age/Sex: 34 / F ADM Date: 06/15/25 Loc: Room: [address] [place] [address] Type: ADM INOo Attending Dr: Mitch Galaviz [...] rhythm Normal ECG Confirmed by Inge Adler ([id number]) on 06/15/2025 7:22:44 PM Referred By: Electronically Signed By: Inge Adler Transcribed By: MUS Signed By Inge Adler MD [address] [place] [address] Physician GroupECH echo transthoracicon 12-79-8999WVA echo transthoracicKETTERING MEMORIAL [facility]OSPITAL Main [place] [id number] Echocardiogram Signed Patient: Noel Paul MR#: [id number] : 1990 Acct:[id number] Age/Sex: 34 / F ADM Date: 06/15/25 Loc: Room: [address] [place] [address] Type: ADM INOo Attending Dr: Mitch Galaviz [...] 1243 Signed By: Inge Adler MD 06/15/25 1758[facility] Glucose Poct Glucometerson 97-75-6409Twmznkt7Vbl0: Cleaned MeterElbow Lake Medical CenterComment on above:Result Comment: PERFORMED BY: [address] [place] [address] PATHOLOGIST HOME SERVICE DEMONSTRATOR CHANEL ROMERO M.D.Performed By: #### GLULS #### Point of Care testing ,Glucose [Mass/Vol]111 mg/dLHolmes Regional Medical Center Physician [facility] Medical CenterComment on above: Result Comment: Random Glucose Reference Range is dependent on time and content of last meal. Glucose of more than 200 mg/dL in a nonstressed, ambulatory subject supports the diagnosis of Diabetes Mellitus.Performed By: #### GLULS #### Point of Care testing ,Glucose [Mass/Vol]108 mg/dLHolmes Regional Medical Center Physician [facility] Medical CenterComment on above: Result Comment: Random Glucose Reference Range is dependent on time and content of last meal. Glucose of more than 200 mg/dL in a nonstressed, ambulatory subject supports the diagnosis of Diabetes Mellitus. PERFORMED BY: [address] [place] [address] PATHOLOGIST HOME SERVICE DEMONSTRATOR CHANEL ROMERO M.D.Performed By: #### GLULS #### Point of Care testing ,Glucose [Mass/Vol]74 mg/dLHolmes Regional Medical Center Physician [facility] Medical CenterComment on above: Result Comment: Random Glucose Reference Range is dependent on time and content of last meal. Glucose of more than 200 mg/dL in a nonstressed, ambulatory subject supports the diagnosis of Diabetes Mellitus. PERFORMED BY: [address] [address] PATHOLOGIST HOME SERVICE DEMONSTRATOR CHANEL ROMERO M.D.Performed By: #### GLULS #### Point of Care testing ,Mqaeeie4Ile5: Cleaned MeterHolmes Regional Medical Center Physician GroupComment on above: Result Comment: PERFORMED BY: [address] [place] [address] PATHOLOGIST HOME SERVICE DEMONSTRATOR CHANEL ROMERO M.D.Performed By: #### GLULS #### Point of Care testing ,Glucose [Mass/Vol]88 mg/dLHolmes Regional Medical Center Physician GroupComment on above: Result Comment: Random Glucose Reference Range is dependent on time and content of last meal. Glucose of more than 200 mg/dL in a nonstressed, ambulatory subject supports the diagnosis of Diabetes Mellitus.Performed By: #### GLULS #### Point of Care testing ,Esvihyt7Fjf7: Cleaned MeterNoNovant Health/NHRMC Physician GroupComment on above: Result Comment: PERFORMED BY: [address] [address] PATHOLOGIST HOME SERVICE DEMONSTRATOR CHANEL ROMERO M.D.Performed By: #### GLULS #### Point of Care testing ,Glucose [Mass/Vol]79 mg/dLHolmes Regional Medical Center Physician GroupComment on above: Result Comment: Random Glucose Reference Range is dependent on time and content of last meal. Glucose of more than 200 mg/dL in a nonstressed, ambulatory subject supports the diagnosis of Diabetes Mellitus.Performed By: #### GLULS #### Point of Care testing ,Glucose [Mass/Vol]64 mg/dLHolmes Regional Medical Center Physician GroupComment on above: Result Comment: Random Glucose Reference Range is dependent on time and content of last meal. Glucose of more than 200 mg/dL in a nonstressed, ambulatory subject supports the diagnosis of Diabetes Mellitus. PERFORMED BY: [place] [address] PATHOLOGIST HOME SERVICE DEMONSTRATOR CHANEL ROMERO M.D.Performed By: #### GLULS #### Point of Care testing ,Glucose [Mass/Vol]94 mg/dLHolmes Regional Medical Center Physician GroupComment on above: Result Comment: Random Glucose Reference Range is dependent on time and content of last meal. Glucose of more than 200 mg/dL in a nonstressed, ambulatory subject supports the diagnosis of Diabetes Mellitus. PERFORMED BY: [address] [place] [address] PATHOLOGIST HOME SERVICE DEMONSTRATOR CHANEL ROMERO M.D.Performed By: #### GLULS #### Point of Care testing ,Jpokfrd8Vmg9: Cleaned MeterNoNovant Health/NHRMC Physician GroupComment on above: Result Comment: PERFORMED BY: [place] [address] PATHOLOGIST HOME SERVICE DEMONSTRATOR CHANEL ROMERO M.D.Performed By: #### GLULS #### Point of Care testing ,Glucose [Mass/Vol]115 mg/dLHolmes Regional Medical Center Physician GroupComment on above: Result Comment: Random Glucose Reference Range is dependent on time and content of last meal. Glucose of more than 200 mg/dL in a nonstressed, ambulatory subject supports the diagnosis of Diabetes Mellitus.Performed By: #### GLULS #### Point of Care testing ,Zjblpyq4Shs0: Cleaned MeterHolmes Regional Medical Center Physician GroupComment on above: Result Comment: PERFORMED BY: [place] [id number] PATHOLOGIST HOME SERVICE DEMONSTRATOR CHANEL ROMERO M.D.Performed By: #### GLULS #### Point of Care testing ,Glucose [Mass/Vol]135 mg/dLHolmes Regional Medical Center Physician GroupComment on above: Result Comment: Random Glucose Reference Range is dependent on time and content of last meal. Glucose of more than 200 mg/dL in a nonstressed, ambulatory subject supports the diagnosis of Diabetes Mellitus.Performed By: #### GLULS #### Point of Care testing ,Lipid Panelon 72-51-5968Ggbnktlmskh [Mass/Vol]158 mg/xCOtfuuo920-277Quv [facility] Physician GroupComment on above:Result Comment: Chol less than 200 mg/dl low risk Chol 201-239 mg/dl borderline risk Chol 240 mg/dl and greater high riskPerformed By: #### HS TROP #### [place] [address] USACholesterol in HDL [Mass/Vol]31 mg/fRXwuwdk66-74Cdt [facility], [facility] Physician GroupComment on above:Result Comment: HDL CHOL ATP-III CLASSIFICATION Cardiovascular Risk HDL > or equal to 60 mg/dL LOW HDL < 40 mg/dL HIGHPerformed By: #### HS TROP #### [place] [address] USACholesterol.total/Cholesterol in HDL [Mass ratio]5.1 {ratio}Normal<5.0The [facility] Physician GroupComment on above:Result Comment: PERFORMED BY: [place] [address] PATHOLOGIST HOME SERVICE DEMONSTRATOR CHANEL ROMERO M.D.Performed By: #### HS TROP #### [place] [address] USALDL Cholesterol,Kedvvejsok29 mg/dLNormal0-100The [facility] Physician GroupComment on above:Result Comment: LDL ATP III CLASSIFICATION LDL less than 100 mg/dL Optimal LDL 100-129 mg/dL Near or above optimal LDL 130-159 mg/dL Borderline high LDL 160-189 mg/dL High LDL greater than 189 mg/dL Very highPerformed By: #### HS TROP #### [place] [address] USATriglyceride w/Mbcxkp622 mg/dLHigh0-149The [facility] Physician GroupComment on above:Result Comment: TRIG ATP III CLASSIFICATION TRIG less than 150 mg/dL Normal TRIG 150-199 mg/dL Borderline high TRIG 200-500 mg/dL High TRIG greater than 500 mg/dL Very high Standard traceable to the Center for Disease Conrtrol and Prevention (CDC) test method.Performed By: #### HS TROP #### [place] [address] USAVLDL ONODEIYWEMF04 mg/dLNormalThe [facility], [facility] Physician GroupComment on above:Performed By: #### HS TROP #### [place] [address] USAMagnesiumon 00-98-2596Prrtgrlgw [Mass/Vol]1.8 mg/dLLow 1.9-2.7The [facility] Physician GroupComment on above:Performed By: #### HS TROP #### [place] [address] USATroponin I High Sensitivityon 59-98-0391Ckqrotlq I High Pwegacqrmqc9Agcqlr1-31Vvo [facility] Physician [facility] Medical CenterComment on above:Result Comment: The Troponin units of report have been changed to meet the Chest Pain Accreditation requirement, element EC5.M1l2. Troponin units are changed from pg/ml to ng/L. Also, the decimal is removed and results are in whole numbers. PERFORMED BY: [place] [address] PATHOLOGIST HOME SERVICE DEMONSTRATOR CHANEL ROMERO M.D.Performed By: #### HS TROP #### [place] [address] USATroponin I High Vbkjceqhcmq2Thbrbn8-37Pth [facility] Physician [facility] Medical CenterComment on above:Result Comment: The Troponin units of report have been changed to meet the Chest Pain Accreditation requirement, element EC5.M1l2. Troponin units are changed from pg/ml to ng/L. Also, the decimal is removed and results are in whole numbers. PERFORMED BY: [place] [address] PATHOLOGIST HOME SERVICE DEMONSTRATOR CHANEL ROMERO M.D.Performed By: #### HS TROP #### [place] [address] USATroponin I High Beveseargqc8Ryjrzy1-89Mjs [facility] Physician [facility] Medical CenterComment on above:Result Comment: The Troponin units of report have been changed to meet the Chest Pain Accreditation requirement, element EC5.M1l2. Troponin units are changed from pg/ml to ng/L. Also, the decimal is removed and results are in whole numbers. PERFORMED BY: [place] [address] PATHOLOGIST HOME SERVICE DEMONSTRATOR CHANEL S HEATHER M.D.Performed By: #### GLULS #### Point of Care testing ,Troponin I.cardiac [Mass/volume] in Serum or Plasma by Detection limit <= 0.01 ng/mLOrdered By: Marek Simran on 67-20-1259Zrgfgwzr I.cardiac DL <= 0.01 ng/mL [Mass/Vol]3 ng/L0-15[facility] - TrumbullComment on above:The Troponin units of report have been changed to meet the Chest Pain Accreditation requirement, element EC5.M1l2. Troponin units are changed from pg/ml to ng/L. Also, the decimal is removed and results are in whole numbers.BNP ser/plas Ordered By: Marek Dennis on 76-14-8104Roqlibaawys peptide B (Bld) [Mass/Vol]20.0 pg/mLNormal5-100[facility] - TrumbullComment on above:Result Comment: PERFORMED BY: [address] [place] [address] PATHOLOGIST HOME SERVICE DEMONSTRATOR CHANEL ROMERO M.D.Performed By: #### GLULS #### Point of Care testing ,Basic Metabolic Panelon 87-77-8978Unfspfehth Clr Calc Wynbdnjx919.28NoNovant Health/NHRMC Physician GroupComment on above:Result Comment: PERFORMED BY: [address] [place] [address] PATHOLOGIST HOME SERVICE DEMONSTRATOR CHANEL ROMERO M.D.Performed By: #### GLULS #### Point of Care testing ,GFR/1.73 sq M.predicted MDRD (S/P/Bld) [Vol rate/Area]mL/min/{1.73_m2}NormalThe [facility] Physician [facility] CenterComment on above:Performed By: #### GLULS #### Point of Care testing ,Basophils [#/volume] in Blood by Automated countOrdered By: PROVIDER TEMP on 51-09-2686Mqlxraoew (Bld) [#/Vol]0.2 10*3/uLNormal0.0-0.2FOhio Valley Surgical HospitalComment on above:Result Comment: PERFORMED BY: [facility] [address] [place] [address] PATHOLOGIST HOME SERVICE DEMONSTRATOR CHANEL ROMERO M.D.Performed By: #### GLULS #### Point of Care testing ,Basophils/100 leukocytes in Blood by Automated countOrdered By: PROVIDER TEMP on 12-90-8021Qoompgprk/100 WBC (Bld)1.4 %Normal.[facility] - TrumbullComment on above:Performed By: #### GLULS #### Point of Care testing ,Calcium [Mass/volume] in Serum or PlasmaOrdered By: PROVIDER TEMP on 06-14-2025 Calcium [Mass/Vol]9.4 mg/dLNormal8.6-10.3FOhio Valley Surgical Hospital Comment on above:Performed By: #### GLULS #### Point of Care testing ,Carbon dioxide, total [Moles/volume] in Serum or PlasmaOrdered By: PROVIDER TEMP on 64-97-5096UH6 [Moles/Vol]27.2 mmol/JRdnbvk23.0-31.0[facility] - TrumbullComment on above:Performed By: #### GLULS #### Point of Care testing ,Chloride [Moles/volume] in Serum or PlasmaOrdered By: PROVIDER TEMP on 53-72-7775Fcxczjih [Moles/Vol]105 mmol/EDdhhxj26-483JtguexrawSelect Medical Specialty Hospital - TrumbullComment on above:Performed By: #### GLULS #### Point of Care testing ,Complete Blood Count Auto Diffon 17-96-8885Akly Corpuscular HGB Conc32.2 g/dL Ngyreg89.0-35.0The [facility] Physician GroupComment on above:Performed By: #### GLULS #### Point of Care testing ,Monocytes/100 WBC (Bld)19.88 %Normal0.00-20.00The [facility] Physician Group Comment on above:Performed By: #### GLULS #### Point of Care testing ,NRBC%0.1 /100{WBC}Normal0-0.5The [facility] Physician GroupComment on above: Performed By: #### GLULS #### Point of Care testing ,White Blood Count12.4 [CFU]/mLHigh3.8-11.6[facility] [place] Physician GroupComment on above:Performed By: #### GLULS #### Point of Care testing ,Creatine kinase [Enzymatic activity/volume] in Serum or PlasmaOrdered By: PROVIDER TEMP on 37-71-2164AT [Catalytic activity/Vol]50 U/TOnnpdi26-444 [facility] - TrumbullComment on above:Performed By: #### GLULS #### Point of Care testing ,Creatinine [Mass/volume] in Serum or PlasmaOrdered By: PROVIDER TEMP on 87-33-0520Rzgcildntd [Mass/Vol]0.99 mg/dLNormal0.60-1.20[facility] - TrumbullComment on above:Performed By: #### GLULS #### Point of Care testing ,D-Dimer High Sensitivityon 86-53-9772G-Dimer High Sensitivity<210Apsfpi6-965[facility]-Coordinated HlthComment on above:Result Comment: The reference range for [...] coagulation studies. Please contact the laboratory at [phone] for redraw instructions. PERFORMED BY: [address] [address] PATHOLOGIST HOME SERVICE DEMONSTRATOR CHANEL ROMERO M.D.Performed By: #### GLULS #### Point of Care testing ,ECG 12 lead ECGon 19-15-1234XQH 12 lead ECGKETTERING [facility] Main [address] [address] Electrocardiograph Report Signed Patient: Noel Paul MR#: [id number] : 1990 Acct:[id number] Age/Sex: 34 / F ADM Date: 06/15/25 Loc: Room: [address] [place] [address] Type: ADM INOo Attending Dr: Neo Mclaughlin [...] By: MUS Signed By Marek Dennis DO [address] Physician GroupEosinophils [#/volume] in Blood by Automated countOrdered By: PROVIDER TEMP on 55-64-7874Gmhqeweltbp (Bld) [#/Vol] 0.3 10*3/uLNormal0.0-0.45[facility] - TrumbullComment on above: Performed By: #### GLULS #### Point of Care testing ,Eosinophils/100 leukocytes in Blood by Automated countOrdered By: PROVIDER TEMP on 89-15-0845Ztfgcpwwhpw/100 WBC (Bld)2.8 %Normal.[facility] - TrumbullComment on above:Performed By: #### GLULS #### Point of Care testing ,Erythrocyte distribution width [Ratio] by Automated countOrdered By: PROVIDER TEMP on 52-75-1984Vqnqvqcetot distribution width (RBC) [Ratio]16.5 %High 11.9-15.3FOhio Valley Surgical HospitalComment on above:Performed By: #### GLULS #### Point of Care testing ,Erythrocytes [#/volume] in Blood by Automated countOrdered By: PROVIDER TEMP on 12-61-5742AWE (Bld) [#/Vol]4.98 10*6/uLNormal3.60-5.00[facility] - TrumbullComment on above:Performed By: #### GLULS #### Point of Care testing ,Glucose [Mass/volume] in Serum or PlasmaOrdered By: PROVIDER TEMP on 06-14-2025 Glucose [Mass/Vol]143 mg/xJAyby49-344RdkzhjfvdSelect Medical Specialty Hospital - TrumbullComment on above:ADA recommended reference rangeRandom Glucose Reference [...] by Automated countOrdered By: PROVIDER TEMP on 51-77-0581Mgczijoyul (Bld) [Volume fraction]38.6 %Yssmnh54.0-46.4 [facility] - TrumbullComment on above:Performed By: #### GLULS #### Point of Care testing ,Hemoglobin [Mass/volume] in BloodOrdered By: PROVIDER TEMP on 06-14-2025 Hemoglobin (Bld) [Mass/Vol]12.4 g/qEXrudan31.8-15.4FOhio Valley Surgical HospitalComment on above:Performed By: #### GLULS #### Point of Care testing ,INR in Platelet poor plasma by Coagulation assayOrdered By: Marek Dennis on 79-28-5379CPD Coag (PPP) [Relative time]1.0 {INR}OhioHealth Pickerington Methodist HospitalComment on above:INR Therapeutic Range A) Pre- [...] heart valves: 3 - 4.5 PERFORMED BY: [facility] [address] PATHOLOGIST HOME SERVICE DEMONSTRATOR CHANEL ROMERO M.D.Performed By: #### GLULS #### Point of Care testing ,Leukocytes [#/volume] corrected for nucleated erythrocytes in Blood by Automated counOrdered By: PROVIDER TEMP on 93-77-8138LLO corrected for nucl RBC Auto (Bld) [#/Vol]12.4 10*3/uLHigh3.8-11.6FOhio Valley Surgical Hospital Leukocytes [#/volume] in Blood by Automated countOrdered By: PROVIDER TEMP on 43-85-4569CRU (Bld) [#/Vol]12.4 10*3/uLHigh3.8-11.6FOhio Valley Surgical HospitalComment on above:Performed By: #### GLULS #### Point of Care testing ,Lymphocytes [#/volume] in Blood by Automated countOrdered By: PROVIDER TEMP on 85-76-9657Pivzcradufl (Bld) [#/Vol]2.0 10*3/uLNormal1.00-4.8[facility] - TrumbullComment on above:Performed By: #### GLULS #### Point of Care testing ,Lymphocytes/100 leukocytes in Blood by Automated countOrdered By: PROVIDER TEMP on 96-29-8444Gcplkdezbvz/100 WBC (Bld)15.9 %Normal.[facility] - TrumbullComment on above:Performed By: #### GLULS #### Point of Care testing ,MCH [Entitic mass] by Automated countOrdered By: PROVIDER TEMP on 63-49-1009HYA (RBC) [Entitic mass]25.0 bgSujceh09.7-34.3FOhio Valley Surgical Hospital Comment on above:Performed By: #### GLULS #### Point of Care testing ,MCHC Auto (RBC) [Mass/Vol]Ordered By: PROVIDER TEMP on 31-18-2920VBVD (RBC) [Mass/Vol]32.2 g/dL32.0-35.0[facility] - TrumbullMCV [Entitic volume] by Automated countOrdered By: PROVIDER TEMP on 48-26-2234DYK (RBC) [Entitic vol]77.6 mZEpd40-216UpjbausmiSelect Medical Specialty Hospital - TrumbullComment on above: Performed By: #### GLULS #### Point of Care testing ,Monocyte distribution width [Entitic volume] in Blood by AutomatedOrdered By: PROVIDER TEMP on 71-43-6538Jwaphkuo distribution width Auto (Bld) [Entitic vol] 19.88 %0.00-20.00[facility] - TrumbullMonocytes [#/volume] in Blood by Automated countOrdered By: PROVIDER TEMP on 62-55-5066Qjhbcviji (Bld) [#/Vol] 0.6 10*3/uLNormal0.0-0.8[facility] - TrumbullComment on above: Performed By: #### GLULS #### Point of Care testing ,Monocytes/100 leukocytes in Blood by Automated countOrdered By: PROVIDER TEMP on 41-90-9481Eokwslzvz/100 WBC (Bld)5.2 %Normal.[facility] - TrumbullComment on above:Performed By: #### GLULS #### Point of Care testing ,Neutrophils [#/volume] in Blood by Automated countOrdered By: PROVIDER TEMP on 36-53-8313Qrwxizwdqej (Bld) [#/Vol]9.3 10*3/uLHigh1.8-7.7FOhio Valley Surgical HospitalComment on above:Performed By: #### GLULS #### Point of Care testing ,Neutrophils/100 leukocytes in Blood by Automated countOrdered By: PROVIDER TEMP on 90-15-0057Mpyughqxcsj/100 WBC (Bld)74.7 %Normal.[facility] - TrumbullComment on above:Performed By: #### GLULS #### Point of Care testing ,No Panel InformationOrdered By: PROVIDER TEMP on 86-21-9393Kmtfljuka GFR (CKD-EPI)> 60.0 mL/MinSelect Medical Specialty Hospital - TrumbullPharmacy Creatinine Clearance (Merd123.28[facility] Hospital - TrumbullNucleated erythrocytes [Presence] in Blood by Automated countOrdered By: PROVIDER TEMP on 06-14-2025 Nucleated RBC Auto Ql (Bld)0.1 /100{WBC}0-0.5FOhio Valley Surgical Hospital Platelet mean volume [Entitic volume] in Blood by Automated countOrdered By: PROVIDER TEMP on 92-84-0576Hlecqayn mean volume (Bld) [Entitic vol]7.5 fLNormal 6.3-10.7FOhio Valley Surgical HospitalComment on above:Performed By: #### GLULS #### Point of Care testing ,Platelets [#/volume] in Blood by Automated countOrdered By: PROVIDER TEMP on 65-55-4818Xezgbbfah (Bld) [#/Vol]361 10*3/pVQxegbo855-781RwrymnscjSelect Medical Specialty Hospital - TrumbullComment on above:Performed By: #### GLULS #### Point of Care testing ,Potassium [Moles/volume] in Serum or PlasmaOrdered By: PROVIDER TEMP on 40-97-3423Hflhhwwfw [Moles/Vol]3.7 mmol/LNormal3.5-5.1FOhio Valley Surgical HospitalComment on above:Performed By: #### GLULS #### Point of Care testing ,Prothrombin time (PT)Ordered By: Marek eDnnis on 24-03-0074VX Coag (PPP) [Time] 11.5 sNormal9.0-12.9[facility] Hospital - TrumbullComment on above:A hematocrit value greater than 55% may lead to inaccurate results in coagulation testing. Patientshaving hematocrit values >55% require a special collection tube for coagulation studies. Please contact the laboratory at [phone] for redraw instructions.Result Comment: A hematocrit value greater than 55% may lead to inaccurate results in coagulation testing. Patients having hematocrit values >55% require a special collection tube for coagulation studies. Please contact the laboratory at [phone] for redraw instructions.Performed By: #### GLULS #### Point of Care testing ,Serum or plasma anion gap determinationOrdered By: PROVIDER TEMP on 06-14-2025 Anion gap [Moles/Vol]11.5 mmol/LNormal6.0-15.0[facility] Comment on above:Performed By: #### GLULS #### Point of Care testing ,Sodium [Moles/volume] in Serum or PlasmaOrdered By: PROVIDER TEMP on 06-14-2025 Sodium [Moles/Vol]140 mmol/YCgrbsj587-408GjmxavedfSelect Medical Specialty Hospital - Trumbull Comment on above:Performed By: #### GLULS #### Point of Care testing ,Troponin I High Sensitivityon 52-12-8718Xnglrauw I High Hvyqqaxioxo7Bldcpk1-97 [facility] Physician GroupComment on above:Result Comment: The Troponin units of report have been changed to meet the Chest Pain Accreditation requirement, element EC5.M1l2. Troponin units are changed from pg/ml to ng/L. Also, the decimal is removed and results are in whole numbers. PERFORMED BY: [place] [address] PATHOLOGIST HOME SERVICE DEMONSTRATOR CHANEL ROMERO M.D.Performed By: #### GLULS #### Point of Care testing ,Urea nitrogen [Mass/volume] in Serum or PlasmaOrdered By: PROVIDER TEMP on 88-38-8607Iipb nitrogen [Mass/Vol]16 mg/dLNormal7-25[facility] - TrumbullComment on above:Performed By: #### GLULS #### Point of Care testing ,X-ray reportOrdered By: Fermín Wilks on 82-79-0581Xwbjn reportKETTERING [facility] [place] [address] XRay Report Signed Patient: Nole Paul MR#: [id number] : 1990 Acct:[id number] Age/Sex: 34 / F ADM Date: 5 [...] Wilks II, MD 06/14/252255 Signed By: 06/14/252256 [facility] Work Phone: XR chest 2V*on 02-58-5826UD chest 2V*[facility] [place] [address] XRay Report Signed Patient: Noel Paul MR#: [id number] : 1990 Acct:[id number] Age/Sex: 34 / F ADM Date: 06/14/25 [...] Wilks II, MD 06/14/252255 Signed By: 06/14/[address] [place] [address] Physician GroupMR Ankle - right WO contraston 49-99-8554OJFNAULHJS: 1. Postoperative changes of posterior tibialis tendon reattachment with marked thickening of the distal tendon probably due to degeneration or postoperative scarring. No evidence of a complete tear. 2. Tenosynovitis at the master knot of Luis. 3. Chronic changes in the deltoid and spring ligaments as described. Seat Builder: PSCB Transcribe Date/Time: Jun 06 2025 11:37A Dictated by : RADHA TYSON MD This examination was interpreted and the report reviewed and electronically signed by: KATIANA FLORES MD on Jun 06 2025 2:13PM [facility]* * *Final Report* * * DATE OF EXAM: Jun 06 2025 8:43AM [facility] 0164 - MRI ANKLE WO IVCON [...] No significant additional findings. DIVISION OF RADIOLOGYProvider, [facility] [place] - 06/06/2025 * * *Final Report* * * DATE OF EXAM: Jun 06 2025 8:43AM [facility] 0164 - MRI ANKLE WO IVCON [...] the deltoid and spring ligaments as described. Seat Builder: PSCB Transcribe Date/Time: Jun 06 2025 11:37A Dictated by : RADHA TYSON MD This examination was interpreted and the report reviewed and electronically signed by: KATIANA FLORES MD on Jun 06 2025 2:13PM [facility] HospitalRadiology Study observation (narrative)[facility] Ankle - right WO contrastOrdered By: Ccf Provider on 45-13-0796Yjoamewli ClinicMRI ANKLE WO IVCON RTon 74-09-4580CRM ANKLE WO IVCON RT* * *Final Report* * * DATE OF EXAM: Jun 06 2025 8:43AM [facility] 0164 - MRI ANKLE WO IVCON [...] the deltoid and spring ligaments as described. Seat Builder: PSCB Transcribe Date/Time: Jun 06 2025 11:37A Dictated by : RADHA TYSON MD This examination was interpreted and the report reviewed and electronically signed by: KATIANA FLORES MD on Jun 06 2025 2:13PM EST [id number] Health St. Anne Hospital 43-06-1985VEAM Telephone (RAYMONDORRM) NOEL PAUL ([id number]) 1990 F [place] Date Time Provider Department 05/17/25 SEAN MATA During your visit today, we recorded the following information about you: Natalai Barrios CT 05/17/2025 12:02 PM Signed Patients boot in no longer inflating or button is broken. Her mother will be coming in this way next week. She will bring the boot to change it out. Patient lives in [place]. Allergies As of Date: 05/17/2025 Noted Allergy [...] by mouth once daily. - DEXCOM G7 OPERATING ROOM TECHNICIAN misc as directed. - DEXCOM G7 [...] 12/28/2024 Encounter Status:Closed by NATALIA BARRIOS on 06/04/25[facility] 11-92-6426VWTTVsftlp Visit (LOORRM) NOEL PAUL ([id number]) 1990 F [place] Date Time Provider Department 05/16/25 2:30 PM SEAN MATA LOORRMadi During your visit today, we recorded the following information about you: Sean Mata DPM 05/16/2025 2:44 PM Signed Medical intake sheet from May 16, 2025 , was updated by patient, reviewed, and was made part of the patient's chart. Sean Mata DPM PRIMARY SERVICE: [facility] Podiatry SUBJECTIVE: Patient is seen today [...] tablet by mouth once daily. 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 DEXCOM G7 SENSOR [...] [M25.571, G89.29] Order(s):MRI ANKLE WO IVCON RIGHT [[id number]] Order #: [id number] FUTURE Prescriptions as of 05/16/2025 - keTORolac (TORADOL) 10 mg tablet Take 1 tablet by mouth every 6 hours as needed. with food. - aspirin 325 mg tablet Take 1 tablet by mouth once daily. - DEXCOM G7 OPERATING ROOM TECHNICIAN misc as directed. - DEXCOM G7 [...] joint [M19*12/28/2024 BMI 60. (more content not included)...NormalOhioHealth Berger HospitalOVAtrium Health Levine Children'S [facility] Children’S Hospitalice Visit (LOORRM) NOEL PAUL ([id number]) 1990 F [place] Date Time Provider Department [...] by mouth once daily. - DEXCOM G7 OPERATING ROOM TECHNICIAN misc as directed. - DEXCOM G7 [...] 12/28/2024 Encounter Status:Closed by BEVERLY DOBSON on 05/16/25[facility] 13-06-9056NZXMFyievl Visit (LOORR) NOEL PAUL ([id number]) 1990 F [place] Date Time Provider Department [...] by mouth once daily. - DEXCOM G7 OPERATING ROOM TECHNICIAN misc as directed. - DEXCOM G7 [...] 12/28/2024 Encounter Status:Closed by BEVERLY DOBSON on 05/06/25NoSelect Medical [facility] Hospital Additional Injections: R subtalar jointon 69-65-6942ElxaynsSean Mata DPM 04/25/2025 2:38 PM Additional Injections: [...] these instructions. Informed Consent Consent Obtained: Verbal [place] Protocol A moment to CARE was completed. [...] the bedside nurse for hospitalized patients) applicable. [facility] Medical CenterCNOVon 57-73-5425QIKMEapxly Visit (LOORRM) NOEL PAUL ([id number]) 1990 F [place] Date Time Provider Department [...] by mouth once daily. - DEXCOM G7 OPERATING ROOM TECHNICIAN misc as directed. - DEXCOM G7 [...] Encounter Status:Closed by BEVERLY DOBSON on 04/25/25[facility] Visit (LOORRM) NOEL PAUL ([id number]) 1990 F [place] Date Time Provider Department 04/25/25 2:00 PM SEAN MATA During your visit today, we recorded the following information about you: Sean Mata, SHITAL 04/25/2025 2:38 PM Signed PRIMARY SERVICE: [facility] Podiatry SUBJECTIVE: Patient is seen today [...] by mouth once daily. - DEXCOM G7 OPERATING ROOM TECHNICIAN misc as directed. - DEXCOM G7 [...] these instructions. Informed Consent Consent Obtained: Verbal [place] Protocol A moment to CARE was completed. [...] right [M25.571] Order(s):Additional Injections: R subtalar joint [YIL649] Order #: [id number] CAST DAVID LEG, SHORT(WALKING) [72319DOA-CM] Order #: [id number] [] BUPivacaine (PF) 0.5 % (5 mg/mL) 1 mL injectionDisp: Rfl: [] triamcinolone acetonide (more content not included)...NormalBarnesville HospitalCNCOon 89-77-7087PRZNCoyiky TextNormalCTriHealth McCullough-[facility] CNOVon 32-86-3190DACYEaffrt Visit (LOORRM) NOEL PAUL ([id number]) 1990 F [place] Date Time Provider Department 03/14/25 3:45 PM SEAN MATA LOORRMadi During your visit today, we recorded the following information about you: Sean Mata, SHITAL 03/14/2025 4:01 PM Signed PRIMARY SERVICE: [facility] Podiatry SUBJECTIVE: Patient is seen today [...] for up to 10 days. 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 DEXCOM G7 SENSOR [...] [Z98.890] Order(s):XR FOOT GENERAL 3V AP/LAT/OBL RIGHT [[id number]] Order #: [id number] FUTURE XR FOOT GENERAL 3V AP/LAT/OBL RIGHT [[id number]] Order #: [id number] FUTURE Prescriptions as of 03/14/2025 - keTORolac (TORADOL) 10 mg tablet Take 1 tablet by mouth every 6 hours as needed. with food. - aspirin 325 mg tablet Take 1 tablet by mouth once daily. - DEXCOM G7 OPERATING ROOM TECHNICIAN misc as directed. - DEXCOM G7 [...] joint [M19*12/28/2024 BMI 6 (more content not included)...NormalBarnesville HospitalXR FOOT 3V AP/LAT/OBL RTon 68-27-4189EG FOOT 3V AP/LAT/OBL RT* * *Final Report* [...] interval change. IMPRESSION: No significant interval change. Seat Builder: [facility]Mag[facility] [employer] Transcribe Date/Time: Mar 14 2025 4:01P Dictated by : NOE PERLA MD This examination was interpreted and the report reviewed and electronically signed by: NEO PERLA MD on Mar 14 2025 4:02PM EST [id number] HospitalXR Foot - right AP and Lateral and obliqueon 04-81-7780WRHOWPGZGI: No significant interval change. Seat Builder: [employer] Transcribe Date/Time: Mar 14 2025 4:01P Dictated [...] other significant interval change. DIVISION OF RADIOLOGYProvider, [facility] [place] - 03/14/2025 * * *Final Report* * [...] change. IMPRESSION IMPRESSION: No significant interval change. Seat Builder: PSCB Transcribe Date/Time: Mar 14 2025 4:01P Dictated by : NEO PERLA MD This examination was interpreted and the report reviewed and electronically signed by: NEO PERLA MD on Mar 14 2025 4:02PM EST [facility] HospitalRadiology Study observation (narrative)[facility] HospitalXR Foot - right AP and Lateral and obliqueOrdered By: Ccf Provider on 92-14-3049Smgraalqt ClinicCNPNon 77-92-6952OQEFOqmvlmhvv (ORQ) NOEL PAUL ([id number]) 1990 F [place] Date Time Provider Department 02/20/25 SEAN MATA During your visit today, we recorded the following information about you: Marva Bhardwaj 02/20/2025 4:08 PM Signed Bonilla from [facility] PT Dept is calling Sean Mata DPM today to request weightbearing guide lines for patient PT CB [phone] FAX [phone] Patient has been identified by name and birthdate. Duration of symptoms: N/A Person calling: caregiver: Call patient at: [phone] (home) [phone] (cell) Was an appointment scheduled: No Closing statement: Results or non-symptom based questions: Thank you for calling [facility], your call will be returned within [...] by mouth once daily. - DEXCOM G7 OPERATING ROOM TECHNICIAN misc as directed. - DEXCOM G7 [...] 12/28/2024 Encounter Status:Closed by CHRIS BHATT on 02/20/25[facility]ermahesh 86-25-9018NQILRaeykl Visit (LOORRM) NOEL PAUL ([id number]) 1990 F [place] Date Time Provider Department 02/13/25 9:45 AM SEAN MATA LOORRMadi During your visit today, we recorded the following information about you: Sean Mata, Madi 02/13/2025 10:05 AM Signed PRIMARY SERVICE: [facility] Podiatry SUBJECTIVE: Patient is seen today [...] up to 10 days. - DEXCOM G7 OPERATING ROOM TECHNICIAN misc as directed. - DEXCOM G7 [...] [Z98.890] Order(s):XR FOOT GENERAL 3V AP/LAT/OBL RIGHT [[id number]] Order #: [id number] FUTURE CONSULT TO PHYSICAL THERAPY [9032] Order #: [id number]: 1 FUTURE Prescriptions as of 02/13/2025 - keTORolac (TORADOL) 10 mg tablet Take 1 tablet by mouth every 6 hours as needed. with food. - aspirin 325 mg tablet Take 1 tablet by mouth once daily. - DEXCOM G7 OPERATING ROOM TECHNICIAN misc as directed. - DEXCOM G7 [...] As Of Date 02/13 (more content not included)...NormalOhioHealth Berger HospitalOVOffice Visit (LOORRM) NOEL PAUL ([id number]) 1990 F [place] Date Time Provider Department [...] by mouth once daily. - DEXCOM G7 OPERATING ROOM TECHNICIAN misc as directed. - DEXCOM G7 [...] 12/28/2024 Encounter Status:Closed by BEVERLY DOBSON on 02/13/25NormalCTriHealth McCullough-Hyde Memorial HospitalXR FOOT 3V AP/LAT/OBL RTon 51-46-4989LF FOOT 3V AP/LAT/OBL RT* * *Final Report* [...] interval change. IMPRESSION: Postoperative findings, as described. Seat Builder: HERNÁN Transcribe Date/Time: Feb 13 2025 9:26A Dictated by : MONALISA HOLGUIN MD This examination was interpreted and the report reviewed and electronically signed by: ANGELA VEGAS MD on Feb 13 2025 10:19AM EST [id number] HospitalXR Foot - right AP and Lateral and obliqueon 96-42-6768HOFTSZCLNG: Postoperative findings, as described. Seat Builder: PSCB Transcribe Date/Time: Feb 13 2025 9:26A [...] other significant interval change. DIVISION OF RADIOLOGYProvider, [facility] [place] - 02/13/2025 * * *Final Report* * [...] change. IMPRESSION IMPRESSION: Postoperative findings, as described. Seat Builder: PSCB Transcribe Date/Time: Feb 13 2025 9:26A Dictated by : MONALISA HOLGUIN MD This examination was interpreted and the report reviewed and electronically signed by: ANGELA VEGAS MD on Feb 13 2025 10:19AM EST [facility] HospitalRadiology Study observation (narrative)[facility] HospitalXR Foot - right AP and Lateral and obliqueOrdered By: [facility] Provider on 90-43-0207Jyxgbyxun ClinicCNOVon 75-18-8286OCUHMryxin Visit (LOORRM) NOEL PAUL ([id number]) 1990 F [place] Date Time Provider Department [...] by mouth once daily. - DEXCOM G7 OPERATING ROOM TECHNICIAN misc as directed. - DEXCOM G7 [...] Encounter Status:Closed by BEVERLY DOBSON on 01/23/25[facility] Visit (LOORRM) NOEL PAUL ([id number]) 1990 F [place] Date Time Provider Department 01/23/25 11:30 AM SEAN MATA During your visit today, we recorded the following information about you: Sean Mata DPM 01/23/2025 11:47 AM Signed PRIMARY SERVICE: [facility] Podiatry SUBJECTIVE: Patient is seen today [...] for up to 10 days. 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 DEXCOM G7 SENSOR [...] [Q74.2] Order(s):XR FOOT GENERAL 3V AP/LAT/OBL RIGHT [[id number]] Order #: [id number] FUTURE PARKING FOR HANDICAPPED [[id number]] Order #: [id number] Prescriptions as of 01/23/2025 - keTORolac (TORADOL) 10 mg tablet Take 1 tablet by mouth every 6 hours as needed. with food. - aspirin 325 mg tablet Take 1 tablet by mouth once daily. - DEXCOM G7 OPERATING ROOM TECHNICIAN misc as directed. - DEXCOM G7 [...] for 90 - oxyCOD (more content not included)...NormalSelect Medical [facility]Health Rehabilitation Hospital - [facility] 83-92-6870BWPNAxtvvd TextNormalCDiley Ridge Medical Center 15-21-2402WDWF Office Visit (LOORRM) NOEL PAUL ([id number]) 1990 F [place] Date Time Provider Department 01/09/25 10:15 AM SEAN MATA During your visit today, we recorded the following information about you: EsperanzaSean DPM 01/09/2025 10:55 AM Signed PRIMARY SERVICE: [facility] Podiatry SUBJECTIVE: Patient is seen today [...] for up to 10 days. 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 DEXCOM G7 SENSOR [...] [Q74.2] Order(s):XR FOOT GENERAL 3V AP/LAT/OBL RIGHT [[id number]] Order #: [id number] FUTURE Prescriptions as of 01/09/2025 - keTORolac (TORADOL) 10 mg tablet Take 1 tablet by mouth every 6 hours as needed. with food. - aspirin 325 mg tablet Take 1 tablet by mouth once daily. - promethazine (PHENERGAN) 12.5 mg tablet Take 1 tablet by mouth every 8 hours as needed for up to 10 days. - DEXCOM G7 OPERATING ROOM TECHNICIAN misc as directed. - DEXCOM G7 [...] 01/09/2025 Noted R (more content not included)...Normal [facility] Visit (LOORRM) NOEL PAUL ([id number]) 1990 F [place] Date Time Provider Department [...] up to 10 days. - DEXCOM G7 OPERATING ROOM TECHNICIAN [facility] as directed. - DEXCOM G7 SENSOR [place] [...] 12/28/2024 Encounter Status:Closed by SHAYLEE CONCEPCION on 01/09/25[facility] 42-48-9440YNXLYhwccatxw (LOORRM) NOEL PAUL ([id number]) 1990 F [place] Date Time Provider Department 01/02/25 SEAN MATA During your visit today, we recorded the following information about you: Sean Mata, SHITAL 01/02/2025 12:40 PM Signed Called patient at [phone] to return call regarding pain management. I [...] up to 5 days. - DEXCOM G7 OPERATING ROOM TECHNICIAN misc as directed. - DEXCOM G7 [...] 12/28/2024 Encounter Status:Closed by SEAN MATA on 01/02/25[facility] POSTPROC EVALon 99-61-9927PSYF POSTPROC EVALHNO ID: [id number] Author: PETER BROWN MD Service: Anesthesiology Author Type: Anesthesiologist Type: Anesthesia Postprocedure Evaluation Filed: 12/31/2024 11:19 Note Text: POST ANESTHESIA EVALUATION NOTE : 1990 Procedure Summary Date: 12/31/24 Room / Location: [address] Anesthesia Start: 737 Anesthesia Stop: 1005 [...] December 31, 2024 TIME: 11:19 AM CSN: [id number] Samaritan Hospital PRE-OPon 59-53-1004DSLH PRE-OPHNO ID: [id number] Author: PETER BROWN MD Service: Anesthesiology Author Type: Anesthesiologist Type: Anesthesia Preprocedure Evaluation Filed: 12/31/2024 07:32 Note Text: ANESTHESIOLOGY DAY OF SURGERY NOTE : 1990 Procedure Information Date/Time: 12/31/24729 Procedure: RECONSTRUCTION POSTERIOR TIBIAL TENDON W/EXCISION OF ACCESSORY TARSAL NAVICULAR BONE (Right: Foot) Location: [facility] LR02 / [facility] Surgeons: Sean Mata DPM Estimated body [...] of 12/31/2024 Medication Sig - DEXCOM G7 OPERATING ROOM TECHNICIAN misc as directed. - DEXCOM G7 [...] December 31, 2024 TIME: 7:31 AM CSN: [id number] Reserve Hospital OP NOTon 58-61-1912LYUTP OP NOTHNO ID: [id number] Author: SEAN MATA DPM Service: Podiatry Author Type: Physician Type: Brief Op Note Filed: 12/31/2024 09:42 Note Text: BRIEF OPERATIVE / PROCEDURE NOTE LOG ID: [id number] SURGERY/PROCEDURE DATE: 12/31/2024 INCISION/PROCEDURE START TIME: 8:16 AM INCISION CLOSE/PROCEDURE END TIME: SURGEON(S)/PROCEDURALIST(S) AND MORTGAGE MANAGER(S): Surgeons and Role: * Sean Mata [...] Abadphilip DATE: December 31, 2024 TIME: 9:39 AMNormalOhioHealth Berger HospitalPNon 47-46-8426VFOCGsoyriqib (ORQ) NOEL PAUL ([id number]) 1990 F [place] Date Time Provider Department [...] calling: self Call patient at: at home [phone] (home) [phone] (cell) Was an appointment scheduled: No Closing statement: Results or non-symptom based questions: Thank you for calling [facility], your call will be returned within the next business day. Karissa Torrez MA 12/31/2024 3:26 PM Signed Message has been sent directly to Dr Mata's phone. Sean Mata DPM 01/01/2025 3:53 PM Signed Called patient at her Lonnie's cell number at [phone] to check on postop progress. Received voicemail. [...] up to 5 days. - DEXCOM G7 OPERATING ROOM TECHNICIAN misc as directed. - DEXCOM G7 [...] 12/28/2024 Encounter Status:Closed by SEAN MATA on 01/01/25NoSelect Medical OhioHealth Rehabilitation HospitalOPERATIVE NOon [id number] NOHNO ID: [id number] Author: SEAN MATA DPM Service: Podiatry Author Type: Physician Type: Operative Report Filed: 01/24/2025 08:37 Note Text: [facility] - Operative Report [id number] [address] [place] NOEL PAUL : 1990 AGE: 34. SEX: F PATIENT TYPE: OP HOSP SVC: ORTS LOCATION: [id number] ATTENDING PHYSICIAN: Sean Mata DPM CSN NUMBER: [id number] DATE OF SURGERY/PROCEDURE: 12/31/2024 INCISION/PROCEDURE START TIME: 8:16 a.m. INCISION CLOSE/PROCEDURE END TIME: 9:43 a.m. The procedure was performed in conjunction with the resident who was present in the operating room today under my direct supervision from skin to skin. PREOPERATIVE DIAGNOSIS: Painful remaining accessory navicular, right foot. POSTOPERATIVE DIAGNOSIS: Painful remaining accessory navicular, right foot. SURGEON: Sean Mata DPM MORTGAGE MANAGER: Maurice Bernard D.P.M. SURGERY/PROCEDURE: Revisional modified Kidner procedure, right foot, CPT 54654. ANESTHESIA: General with a local field block consisting of 20 mL of 2% lidocaine plain. LOCATION: [facility]. HEMOSTASIS: Right pneumatic thigh tourniquet at 350 [...] with a SutureTak, we then used some eofj-dal-uaqw sutures distally to the distal (more content not included)...NormalBarnesville HospitalPathology biopsy report Joseph (Tiss)on [id number] REPORTNormal Barnesville HospitalComment on above:Order Comment: Specimen Type: TISSUE SPECIMENOrdering Facility: [facility] Address: [address] [place] [address]Rcakke Comment: Surgical Pathology Report Case: [id number] Authorizing Provider: Sean Mata, Collected: 12/31/2024 09:51 AM DPM Ordering Location: Ambulatory Surgery Received: 12/31/2024 01:28 PM Pathologist: Shemar Pablo MD Specimen: Bone and Soft Tissue, right footPerformed By: #### 91254-3 ####[facility]OS[facility]ITALIA [id number] [place] [address] [facility] LABCLIA [id number] [address]CLINICAL HISTORYNormalCTriHealth McCullough-Hyde Memorial HospitalCompromedica mon[facility] on above:Order Comment: Specimen Type: TISSUE SPECIMENOrdering Facility: [facility] Address: [address] [place] [address]Wuyokl Comment: Pre-op diagnosis: 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]Performed By: #### 82037-7 ####[facility]ITALIA [id number] [place] [address] [facility] LABCLIA [id number] [address] OF [facility] FINAL DIAGNOSISNormLima City HospitalCompromedica monroe regional hospital on above:Order Comment: Specimen Type: TISSUE SPECIMENOrdering Facility: [facility] Address: [address] [place], [place] [id number] Comment: A. Bone, right foot, excision: - Osteocartilaginous tissue with degenerative changes and granulation tissue. Performed By: #### 93459-0 ####[facility]IA [id number] [place] [address] [facility] LABCLIA [id number] [address] [address] [place] [facility]ITALFINAL PERFORMING LABNoSumma Health [facility]ron Campus on above: Order Comment: Specimen Type: TISSUE SPECIMENOrdering Facility: [facility] Address: [address] [place], [place] [address]Result Comment: Diagnostic interpretation performed at: [facility], [address] [facility] [address] CLIA# [id number] Wood Casket Assembler: SILVIO Talboterformed By: #### 42597-3 ####[facility] [id number] [place] [id number] [facility] LABCLIA [id number] [address]GROSS DESCRIPTIONNoSumma Health Akron Campus on above:Order Comment: Specimen Type: TISSUE SPECIMENOrdering Facility: [facility] Address: [address] [place], [place] [address]Result Comment: A. Bone and Soft Tissue Received in formalin, labeled right foot are multiple irregular fragments of mccarthy, hard bone measuring 3 x 3 x 0.9 cm in aggregate. Sectioning reveals mccarthy, hard bone. No gross necrotic areas identified. Field Service Manager sections are submitted in A1 following formic decalcification. KSZ January 01, 2025 10:57 AM Gross examination performed at [facility], [address] [place], [place] [address]Performed By: #### 65115-1 ####[facility] [id number] [place] [id number] [facility] LABIA [id number] [address]ETHISTORY PHYSICALon 12-28-2024 HISTORY PHYSICALHNO ID: [id number] Author: ARY ROCHA APRN.CNP Service: ? Author Type: Nurse Practitioner Type: H&P Filed: 12/28/2024 10:56 Note Text: [facility] HISTORY AND PHYSICAL EXAMINATION SERVICE DATE: 12/28/2024 SERVICE TIME: 10:08 AM PRIMARY CARE PHYSICIAN: Monique Emmanuel CNP, BULLET SWAGING MACHINE ADJUSTER REASON FOR VISIT: Noel Paul is a [...] STOP-Bang Score: STOP-Bang Score: 0 (Awaiting CPAP) [id number] Score: Age: <65 Sex: female [id number] Score: ARISCAT Score: Age: <=50 Preoperative SpO2: [...] chart review and guidance on proceeding at [place]. Per Dr Goetz, patient may proceed as scheduled at [place] CONSULTS: Anesthesia Consult chart review The Following [...] tablet Take 1 t (more content not included)...NormalTriHealth McCullough-Hyde Memorial [facility] 05-60-8680VCYHKgvjdv Visit (LOORRM) NOEL PAUL ([id number]) 1990 F UPA Date Time Provider Department 12/12/24 10:00 AM SEAN MATA LOORRMadi During your visit today, we recorded the following information about you: Sean Mata, SHITAL 12/12/2024 10:46 AM Signed [facility] Department of Orthopedics [facility] Orthopedic Surgery Name: Noel Paul Date [...] Current Outpatient Medications Medication Sig 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 DEXCOM G7 SENSOR [...] Prescriptions as of 12/12/2024 - DEXCOM G7 OPERATING ROOM TECHNICIAN misc as directed. 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 - DEXCOM G7 [...] (None) Encounter Status:Closed by CATHY SANTANA on 12/12/24[facility] CenterXR FOOT 3V AP/LAT/OBL RTon [id number] FOOT 3V AP/LAT/OBL RT* * *Final Report* [...] unremarkable. IMPRESSION: No fracture or joint dislocation. Seat Builder: HERNÁN Transcribe Date/Time: Dec 12 2024 9:37A Dictated by : LUX WILLETT MD This examination was interpreted and the report reviewed and electronically signed by: LUC AVILES MD on Dec 12 2024 11:47AM EST [id number] HospitalXR Foot - right AP and Lateral and obliqueon 96-32-6984AANLNQUSGR: No fracture or joint dislocation. Seat Builder: PSCB Transcribe Date/Time: Dec 12 2024 9:37A [...] Soft tissues appear unremarkable. DIVISION OF RADIOLOGYProvider, [facility] [place] - 12/12/2024 * * *Final Report* * [...] IMPRESSION IMPRESSION: No fracture or joint dislocation. Seat Builder: HERNÁN Transcribe Date/Time: Dec 12 2024 9:37A Dictated by : LUX WILLETT MD This examination was interpreted and the report reviewed and electronically signed by: LUC AVILES MD on Dec 12 2024 11:47AM EST [facility] HospitalRadiology Study observation (narrative)[facility] HospitalXR Foot - right AP and Lateral and obliqueOrdered By: Ccf Provider on 29-68-5641Ffikumpza Fvphik48nm 99-51-989356Ywxmh with patient and let her know that per Dr. Her she can bring the disc in and he will take a look at the images and let her know.[facility]36on 81-69-019248Ewqwqsm would like to know if she can get in earlier than her rescheduled appt since she had to cancel. Patient would like to drop off her MRI results sooner than her appt as well. Please advise at [phone] of [facility] Medical CenterTelephone on [phone] Noel Paul 1990 F Date Provider Department Center 12/03/2024 TIMBO LONG MP ORTHO MPORTHO No family history on file Reason for Visit and Comments: Appointment [375][facility]36on [id number] with patient that she will need to bring disc in. Scheduled patient for Tuesday12/03/24 at 10:30 amNAshtabula County Medical Center36Patient would like to know if she needs to make an appointment to bring in her MRI results or if you have received them? Boomboat Operator does not see them in the chart. Please advise at [phone] of [facility] Medical CenterOffice Visiton 90-21-5026Cmiixv-up [id number] Noel Paul 1990 F Date Provider Department Center 11/26/2024 KAT VIGIL MP ORTHO MPORTHO No family history on file Level of Service:00056 MI OFFICE/OUTPATIENT NEW LOW MDM 30 MINUTES (GC) Reason for Visit and Comments: Pain [136][facility]36on [id number] to confirm apptNormalUniversity of Texas Health Friscourgical Pathology Reporton 09-05-5127Pjtvbsvf Pathology ReportMarion Hospital [address] [place] [address]- Surgical Pathology Report Collected Date/Time: 09/05/2024 08:32 [...] CHANGE IN DIAGNOSIS. Addition of clinical information only.[facility] Butler HospitalComment on above:Performed By: #### [id number] #### [facility] [address] [place], [place] [address]Oiibqoyo Pathology Reporton [id number] Pathology Report [facility] [address] [place] [address]- Surgical Pathology Report Collected Date/Time: 09/05/2024 08:32 [...] Description Microscopic examination performed unless gross only specified.[facility] Butler HospitalComment on above:Performed By: #### [id number] #### [facility] [address] [place] [address]Mjwkvqg [Mass/volume] in Serum or PlasmaOrdered By: Sean Ruano on 03-02-9131Xijlcxm [Mass/Vol]8.8 mg/dL8.6-10.3FOhio Valley Surgical HospitalCarbon dioxide, total [Moles/volume] in Serum or PlasmaOrdered By: Sean Ruano on 22-05-0196EE3 [Moles/Vol]27.3 mmol/L21.0-31.0[facility] TrumbullChloride [Moles/volume] in Serum or PlasmaOrdered By: Sean Ruano on 98-45-3051Tmcaotbc [Moles/Vol]105 mmol/K05-405VntguvhetSelect Medical Specialty Hospital - TrumbullCreatinine [Mass/volume] in Serum or PlasmaOrdered By: Sean Ruano on 33-99-1985Kxgrhufxle [Mass/Vol]0.66 mg/dL0.60-1.20[facility] - TrumbullGlucose Glucometer (BldC) [Mass/Vol]Ordered By: Pato Avelar on 00-51-6706Qjwvdjo [Mass/Vol]106 mg/dLSelect Medical Specialty Hospital - Trumbull Comment on above:Random Glucose Reference Range is dependent on time and content of last meal. Glucose of more than 200 mg/dL in a nonstressed, ambulatory subject supports the diagnosis of Diabetes Mellitus.Glucose [Mass/volume] in Serum or PlasmaOrdered By: Sean Ruano on 81-78-2171Crfyhlv [Mass/Vol]107 mg/oG38-585XfhdpmcvuSelect Medical Specialty Hospital - TrumbullComment on above:ADA recommended reference rangeRandom Glucose Reference Range is dependent on time and content of last meal. Glucose of more than 200 mg/dL in a nonstressed, ambulatory subject supports the diagnosisof Diabetes Mellitus.HCG ( test) IA.rapid Ql (U)Ordered By: Sean Ruano on 34-72-0796VUZ ( test) Ql (U) NegativeSelect Medical Specialty Hospital - TrumbullNo Panel InformationOrdered By: Pato Avelar on 71-52-3846Ghkjxly Glucose CommentGlu2: cleaned meterSelect Medical Specialty Hospital - TrumbullNo Panel InformationOrdered By: Sean Ruano on 09-44-9818Ituuwlzed GFR (CKD-EPI)> 60.0 mL/MinSelect Medical Specialty Hospital - Trumbull Pharmacy Creatinine Clearance (Qycb820.75[facility] Potassium [Moles/volume] in Serum or PlasmaOrdered By: Sean Ruano on 93-16-0057Gecuastef [Moles/Vol]3.8 mmol/L3.5-5.1FCentervilleerum or plasma anion gap determinationOrdered By: Sean Ruano on 32-31-7422Usjjt gap [Moles/Vol]9.5 mmol/L6.0-15.0[facility] Memorial Hospitalodium [Moles/volume] in Serum or PlasmaOrdered By: Sean Ruano on 59-77-6215Vtsacn [Moles/Vol]138 mmol/N038-345BfdmbvivtSelect Medical Specialty Hospital - Trumbull Urea nitrogen [Mass/volume] in Serum or PlasmaOrdered By: Sean Ruano on 68-35-5611Xvvj nitrogen [Mass/Vol]17 mg/dL7-25[facility] CBC w/ Auto Diffon 40-76-5695Omrtavwad/100 WBC (Bld)0.5 %Normal0.0-2.0[facility] HospitalComment on above:Performed By: #### [id number] #### [facility] [address] [place] [address] 477[address]Lmksgpife/Leukocytes Auto (Bld) [Pure # fraction]0.1 E9/LNormal 0.0-0.2FSouthern Ohio Medical CenterComment on above:Performed By: #### [id number] #### [facility] [address] [place] [address] 47[address]Ggxvncunfxh (Bld) [#/Vol]0.3 E9/LNormal0.0-0.5FSouthern Ohio Medical CenterComment on above:Performed By: #### [id number] #### [facility] [address] [place] [address] 915[address]Nguzzvbmpdp/100 WBC (Bld)2.9 %Normal0.0-8.0[facility] HospitalComment on above:Performed By: #### [id number] #### [facility] [address] [place] [address] 608[address]Mdtlyvfffrp distribution width (RBC) [Ratio]15.6 %High10.9-14.2 [facility] HospitalComment on above:Performed By: #### [id number] #### [facility] [address] [place] [address] 167[address]Qztyagggvc (Bld) [Volume fraction]39.9 %Jiktvm78.0-46.0[facility] HospitalComment on above:Performed By: #### [id number] #### [facility] [address] [place] [address] 048[address]Jplteracep (Bld) [Mass/Vol]12.8 g/nQRgqbeg38.0-16.0[facility] HospitalComment on above:Performed By: #### [id number] #### [facility] [address] [place] [address] 386[address]Texfgwasgth (Bld) [#/Vol]2.3 E9/LNormal1.0-4.0[facility] HospitalComment on above:Performed By: #### [id number] #### [facility] [address] [place] [address] 50212Zgslqaaohcj/100 WBC (Bld)20.9 %Gkwiqn38.0-50.0[facility] HospitalComment on above:Performed By: #### [id number] #### [facility] [address] [place] [address] 21491VOV (RBC) [Entitic mass]25.4 pgLow27.0-34.0[facility] HospitalComment on above:Performed By: #### [id number] #### [facility] [address] [place] [address] 885[address]QCOG (RBC) [Mass/Vol]32.2 g/fXNpvalm53.4-36.0[facility] HospitalComment on above:Performed By: #### [id number] #### [facility] [address] [place] [address] 21271TYW (RBC) [Entitic vol]79.0 fLLow80.0-100.0[facility] HospitalComment on above:Performed By: #### [id number] #### [facility] [address] [place] [address] 787[address]Uflgmenqv (Bld) [#/Vol]0.7 E9/LNormal0.2-1.0[facility] HospitalComment on above:Performed By: #### [id number] #### [facility] [address] [place] [address] 369[address]Inpcoykkrtx (Bld) [#/Vol]7.7 E9/LHigh2.0-7.5FSouthern Ohio Medical CenterComment on above:Performed By: #### [id number] #### [facility] [address] [place] [address] 29563Twjkxrcerzg/100 WBC (Bld)69.3 %Lhjvmd05.0-75.0[facility] HospitalComment on above:Performed By: #### [id number] #### [facility] [address] [place] [address] 34951Lrhqhubz mean volume (Bld) [Entitic vol]8.3 fLNormal6.4-10.8 [facility] HospitalComment on above:Performed By: #### [id number] #### [facility] [address] [place], [place] [address]Nuijrickj (Bld) [#/Vol]346.0 E9/APruqzm196.0-500.0[facility] HospitalComment on above:Performed By: #### [id number] #### [facility] [address] [place] [address] 70642EGN (Bld) [#/Vol]5.1 E12/LNormal4.3-5.9[facility] HospitalComment on above:Performed By: #### [id number] #### [facility] [address] [place] [address] 09462CHR corrected for nucl RBC Auto (Bld) [#/Vol]11.1 E9/LHigh 4.0-11.0[facility] HospitalComment on above:Performed By: #### [id number] #### [facility] [address] [place] [address]Jjfvfjx for Treatmenton 81-79-0401Fhbwgcc for Treatment [id number]#1.00TIFFNormalMercy Health Perrysburg HospitalHEMATOLOGYOrdered By: SYSTEM SYSTEM on 20-01-9814Elvskqquu/100 WBC (Bld) 0.5 %Normal0.0 - 2.0 %Remisol HemeBasophils/Leukocytes Auto (Bld) [Pure # fraction]0.1 E9/LNormal0.0 - 0.2 E9/LRemisol HemeEosinophils (Bld) [#/Vol]0.3 E9/LNormal0.0 - 0.5 E9/LRemisol HemeEosinophils/100 WBC (Bld)2.9 %Normal0.0 - 8.0 %Remisol HemeErythrocyte distribution width (RBC) [Ratio]15.6 %High10.9 - 14.2 %Remisol HemeHematocrit (Bld) [Volume fraction]39.9 %Fjxoww57.0 - 46.0 % Remisol HemeHemoglobin (Bld) [Mass/Vol]12.8 g/aWZyaywy47.0 - 16.0 gm/dLRemisol HemeLymphocytes (Bld) [#/Vol]2.3 E9/LNormal1.0 - 4.0 E9/LRemisol Heme Lymphocytes/100 WBC (Bld)20.9 %Lenpkc55.0 - 50.0 %Remisol HemeMCH (RBC) [Entitic mass]25.4 pgLow27.0 - 34.0 pgRemisol HemeMCHC (RBC) [Mass/Vol]32.2 g/dLNormal 31.4 - 36.0 gm/dLRemisol HemeMCV (RBC) [Entitic vol]79.0 fLLow80.0 - 100.0 fL Remisol HemeMonocytes (Bld) [#/Vol]0.7 E9/LNormal0.2 - 1.0 E9/LRemisol Heme Monocytes/100 WBC (Bld)6.4 %Normal4.0 - 14.0 %Remisol HemeNeutrophils (Bld) [#/Vol]7.7 E9/LHigh2.0 - 7.5 E9/LRemisol HemeNeutrophils/100 WBC (Bld)69.3 % Xjyshv41.0 - 75.0 %Remisol HemePlatelet mean volume (Bld) [Entitic vol]8.3 fL Normal6.4 - 10.8 fLRemisol HemePlatelets (Bld) [#/Vol]346.0 E9/MHmsadx477.0 - 500.0 E9/LRemisol HemeRBC (Bld) [#/Vol]5.1 E12/LNormal4.3 - 5.9 E12/LRemisol HemeWBC corrected for nucl RBC Auto (Bld) [#/Vol]11.1 E9/LHigh4.0 - 11.0 E9/L Remisol HemePhysician Orderon 41-20-7766Yluuhfzfm Order [id number]#1.00[facility] CampusGLYCOHEMOGLOBIN A1Con 82-73-0534VAL RECOMMENDATIONSEE BELOWNoMorrow County HospitalComment on above:Result Comment: ADA RECOMMENDED LIMIT 4.0 - 6.0 ADA THERAPEUTIC TARGET < 7.0 ACTION SUGGESTED > 7.0Performed By: #### A1C #### [facility] [address] [address] [address] Benito DupreeGlucose [Mass/Vol]105 mg/dLNoMorrow County HospitalComment on above:Performed By: #### A1C #### [facility] [address] [address] [address] Benito DupreeHbA1c (Bld) [Mass fraction]5.3 %Normal4.5-6.2The [facility] Rittman Medical CenterComment on above:Performed By: #### A1C #### [facility] [address] [place] [address] Dr. Benito Bartonvid-19 PCR (CVDTB)on 45-60-5159OFMZ-CoV-2 (COVID-19) RNA MUKUND+probe Ql (Unsp spec)Not detectedNormalNOT DETECTEDThe [facility] Comment on above:Result Comment: This test is not yet approved or cleared by the [place] FDA. When there are no FDA-approved or cleared tests available, and other criteria are met, FDA can make tests available under an emergency access mechanism called an Emergency Use Authorization (EUA). The EUA for this test is supported by the [place] of Health and Human Service's (HHS's) declaration [...] consistent with SARS-CoV-2.Performed By: #### CVDTBH #### [facility] [address] [place] [address] Dr. Benito Johnson AND B AGon [id number] [facility] on above:Result Comment: Negative for Flu A protein angiten. Infection due to Flu A cannot be ruled out. FluA angiten in the sample may be below the detection limit of the test.Performed By: #### INFLUAB #### [facility] [address] [place] [address] Dr. Benito DupreeINFLUBNEGHSEE [facility] on above: Result Comment: Negative for Flu B protein antigen. Infection due to Flu B cannot be ruled out. FluB antigen in the sample may be below the detection limit of the test.Performed By: #### INFLUAB #### [facility] [address] [place] [address] Dr. Benito Johnson AGNegativeNormalNEGATIVE SEE COMMENTThe [facility] on above:Performed By: #### INFLUAB #### [facility] [address] [place] [address] Dr. Benito Saucedo AGNegativeNormalNEGATIVE SEE COMMENTThe [facility] on above:Performed By: #### INFLUAB #### [facility] [address] [place] [address] Dr. Benito DupreeGLYCOHEMOGLOBIN A1Con 71-81-2886BUV RECOMMENDATIONSEE BELOWUniversity Hospitals [facility] on above:Result Comment: ADA RECOMMENDED LIMIT 4.0 - 6.0 ADA THERAPEUTIC TARGET < 7.0 ACTION SUGGESTED > 7.0Performed By: #### A1C #### [facility] [address] [place] [address] Dr. Benito DupreeGlucose [Mass/Vol]143 mg/dLSelect Medical Specialty Hospital - [facility] on above:Performed By: #### A1C #### [facility] [address] [place] [address] Dr. Benito DupreeHbA1c (Bld) [Mass fraction]6.6 %Critically high4.5-6.2The [facility]ita HospitalComment on above:Performed By: #### A1C #### [facility] [address] [address] [address] Benito DupreeLIPID PROFILEon 42-15-3165DDIO-HDL RATIO NORMSFulton County Health CenterComment on above:Result Comment: 3.3 - 4.4 LOW RISK 4.4 - 7.1 AVERAGE RISK 7.1 - 11.0 MODERATE RISK >11.0 HIGH RISKPerformed By: #### INFLUAB #### [facility] [address] [address] [address] Benito DupreeCholesterol [Mass/Vol]154 mg/dLNormal<=200[facility] Comment on above:Performed By: #### INFLUAB #### [facility] [address] [place] [address] Dr. Benito DupreeCholesterol in HDL [Mass/Vol]29 mg/dLCritically mwz85-35JflOhiohealthComment on above:Performed By: #### INFLUAB #### [facility] [address] [address] [address] Benito DupreeCholesterol in LDL [Mass/Vol]98.2 mg/dLFirelands Regional Medical Center South CampusComment on above:Performed By: #### INFLUAB #### [facility] [address] [place] [address] Dr. Benito DupreeCholesterol.total/Cholesterol in HDL [Mass ratio]5.3 {ratio} NormalOhiohealthComment on above:Performed By: #### INFLUAB #### [facility] [address] [place] [address] Dr. Benito DupreeHDL NORMAL> or = 60 mg/dl - LOW CARDIOVASCULAR RISK <40 mg/dl - HIGH CARDIOVASCULAR RISKFirelands Regional Medical Center South CampusComment on above:Performed By: #### INFLUAB #### [facility] [address] [place] [address] Dr. Benito DupreeLDL CALC NORMALSEE [facility] HospitalComment on above:Result Comment: <100 mg/dl OPTIMAL 100 - 129 mg/dl NEAR OR ABOVE OPTIMAL 130 - 159 mg/dl BORDERLINE HIGH 160 - 189 mg/dl HIGH >190 mg/dl VERY HIGH Performed By: #### INFLUAB #### [facility] [address] [place] [address] Dr. Benito DupreeTriglyceride [Mass/Vol]134 mg/dLNormal<=150The [facility] Comment on above:Performed By: #### INFLUAB #### [facility] [address] [place] [address] Dr. Benito DupreeVLDL CALC26.8 mg/dLNormalThe [facility]itt[facility] Medical CenterComment on above: Performed By: #### INFLUAB #### [facility] [address] [place] [address] Dr. Benito DupreeINSULINon [id number] uIU/mLNormal2.6-24.9The [facility] Medical CenterComment on above:Performed By: #### INFLUAB #### [facility] [address] [place] [address] Dr. Benito DupreeT4, T3U, FTI LABCORPon [id number] Thyroxine Index2.6Normal 1.2-4.9The [facility] Medical CenterComment on above:Performed By: #### THYLC #### [facility] [address] [place] [address] Dr. Benito DupreeT3 Jkbkmq26 %Uxclde94-07Wpi [facility] CenterComment on above: Performed By: #### THYLC #### [facility] [address] [place] [address] Dr. Benito DupreeT4 [Mass/Vol]8.8 ug/dLNormal4.5-12.0The [facility]itt[facility] Medical CenterComment on above:Performed By: #### THYLC #### [facility] [address] [place] [address] Dr. Benito DupreeCBC AUTO DIFFon [id number] #0.1 103/ulNormal0.0-0.1The [facility] CenterComment on above:Performed By: #### INFLUAB #### [facility] [address] [place] [address] Dr. Benito DupreeBasophils/100 WBC (Bld)0.8 %Normal0.2-2.0The [facility] Comment on above:Performed By: #### INFLUAB #### [facility] [address] [place] [address] Dr. Benito Simon #0.3 103/ulNormal0.0-0.7The [facility] CenterComment on above: Performed By: #### INFLUAB #### [facility] [address] [place] [address] Dr. Benito Buschosinophils/100 WBC (Bld)2.8 %Normal0.9-7.0The [facility] Comment on above:Performed By: #### INFLUAB #### [facility] [address] [place] [address] Dr. Benito Buschrythrocyte distribution width (RBC) [Ratio]15.4 %Critically high 11.0-15.0The [facility] Medical CenterComment on above:Performed By: #### INFLUAB #### [facility] [address] [place] [address] Dr. Benito DupreeHematocrit (Bld) [Volume fraction]43.7 %Turgck65.0-48.0The [facility] CenterComment on above:Performed By: #### INFLUAB #### [facility] [address] [place] [address] Dr. Benito DupreeHemoglobin (Bld) [Mass/Vol]14.2 g/sPIxxuqj17.0-16.0The [facility] CenterComment on above:Performed By: #### INFLUAB #### [facility] [address] [place] [address] Dr. Benito Reyes #0.08 10e3/ulCritically high0.00-0.03The [facility] Comment on above:Performed By: #### INFLUAB #### [facility] [address] [place] [address] Dr. Benito Reyes %0.9 %Critically high0.0-0.5The [facility] Medical CenterComment on above:Performed By: #### INFLUAB #### [facility] [address] [place] [address] Dr. Benito Rasheed #2.3 103/ulNormal1.2-3.8The [facility] CenterComment on above:Performed By: #### INFLUAB #### [facility] [address] [place] [address] Dr. Benito Alvarezhocytes/100 WBC (Bld)24.3 %Ydqfir94.5-60.0The [facility] CenterComment on above:Performed By: #### INFLUAB #### [facility] [address] [place] [address] Dr. Benito Ordoñez DIFF REQNONormalThe [facility] CenterComment on above: Performed By: #### INFLUAB #### [facility] [address] [place] [address] Dr. Benito Rowe (RBC) [Entitic mass]26.1 pgCritically low26.7-34.0The [facility] Medical CenterComment on above:Performed By: #### INFLUAB #### [facility] [address] [place] [address] Dr. Benito Rowe (RBC) [Mass/Vol]32.5 g/kPMovmnz31.9-35.2The [facility] CenterCompromedica [facility] on above:Performed By: #### INFLUAB #### [facility] [address] [place] [address] Dr. Benito Rowe (RBC) [Entitic vol]80.2 fLCritically low81.0-99.0The [facility] Medical CenterComment on above:Performed By: #### INFLUAB #### [facility] [address] [place] [address] Dr. Benito Guajardo #0.5 103/ulNormal0.3-0.8The [facility] CenterCompromedica [facility] on above:Performed By: #### INFLUAB #### [facility] [address] [place] [address] Dr. Benito Beverlyocytes/100 WBC (Bld)5.2 %Normal1.7-12.0The [facility] Comment on above:Performed By: #### INFLUAB #### [facility] [address] [place] [address] Dr. Benito Gotti #6.1 103/ulNormal1.4-6.5The [facility] Medical CenterComment on above:Performed By: #### INFLUAB #### [facility] [address] [place] [address] Dr. Benito Badilloutrophils/100 WBC (Bld)66.0 %Egechf82.0-75.0The [facility] CenterComment on above:Performed By: #### INFLUAB #### [facility] [address] [place] [address] Dr. Benito Moralez mean volume (Bld) [Entitic vol]9.9 fLNormal9.5-13.5The [facility] Medical CenterComment on above:Performed By: #### INFLUAB #### [facility] [address] [place] [address] Dr. Benito DupreePLT291 103/zgDvvmeq259-889Bbc [facility] CenterComment on above: Performed By: #### INFLUAB #### [facility] [address] [place] [address] Dr. Benito DupreeRBC5.45 106/ulCritically high4.20-5.40[facility] Comment on above:Performed By: #### INFLUAB #### [facility] [address] [place] [address] Dr. Benito DupreeWBC9.3 103/ulNormal4.0-11.0The [facility] CenterComment on above: Performed By: #### INFLUAB #### [facility] [address] [place] [address] Dr. Benito Quick LDLon [id number] in LDL [Mass/Vol]50 mg/dL NormalThe [facility] Medical CenterComment on above:Performed By: #### THYLC #### [facility] [address] [place] [address] Dr. Benito SpiveyDL NORMALSEE [facility] HospitalComp[facility] on above: Result Comment: <100 mg/dl OPTIMAL 100 - 129 mg/dl NEAR OR ABOVE OPTIMAL 130 - 159 mg/dl BORDERLINE HIGH 160 - 189 mg/dl HIGH >190 mg/dl VERY HIGHPerformed By: #### THYLC #### [facility] [address] [place] [address] Dr. Benito DupreeGLYCOHEMOGLOBIN A1Con [id number] RECOMMENDATIONSEE BELOWLicking Memorial HospitalCompromedica monroe regional hospital on above:Result Comment: ADA RECOMMENDED LIMIT 4.0 - 6.0 ADA THERAPEUTIC TARGET < 7.0 ACTION SUGGESTED > 7.0Performed By: #### A1C #### [facility] [address] [place] [address] Dr. Benito DupreeGlucose [Mass/Vol]332 mg/dLFirelands Regional Medical Center South CampusCompromedica [facility] on above:Performed By: #### A1C #### [facility] [address] [place] [address] Dr. Benito DupreeHbA1c (Bld) [Mass fraction]13.2 %Critically high4.5-6.2[facility] on above:Performed By: #### A1C #### [facility] [address] [place] [address] Dr. Benito Segovia [id number] [Mass/Vol]53.0 ug/xKFxoxbv72.0-170.0[facility] on above:Performed By: #### INFLUAB #### [facility] [address] [place] [address] Dr. Benito DupreeLIPID PROFILEon [id number]-HDL RATIO NORMSEE [facility] HospitalComprom[facility] on above:Result Comment: 3.3 - 4.4 LOW RISK 4.4 - 7.1 AVERAGE RISK 7.1 - 11.0 MODERATE RISK >11.0 HIGH RISKPerformed By: #### THYLC #### [facility] [address] [place] [address] Dr. Benito DupreeCholesterol [Mass/Vol]260 mg/dLCritically high<=200The [facility]ita HospitalComment on above:Performed By: #### THYLC #### [facility] [address] [place] [address] Dr. Benito DupreeCholesterol in HDL [Mass/Vol]23 mg/dLCritically fuq42-30Jlc [facility] CenterComment on above:Performed By: #### THYLC #### [facility] [address] [place] [address] Dr. Benito Esquivelesterol.total/Cholesterol in HDL [Mass ratio]11.3 {ratio} NormalOhiohealthComment on above:Performed By: #### THYLC #### [facility] [address] [place] [address] Dr. Benito Hall NORMAL> or = 60 mg/dl - LOW CARDIOVASCULAR RISK <40 mg/dl - HIGH CARDIOVASCULAR RISKNoMorrow County HospitalComment on above:Performed By: #### THYLC #### [facility] [address] [place] [address] Dr. Benito DupreeTriglyceride [Mass/Vol]1711 mg/dLCritically high<=150The [facility] CenterComment on above:Performed By: #### THYLC #### [facility] [address] [place] [address] Dr. Benito DupreeVLDL HSNJ409.2 mg/dLNoMorrow County HospitalCompromedica mon[facility] on above: Performed By: #### THYLC #### [facility] [address] [place] [address] Dr. Benito DupreePROF 14(COMP METB)on [id number] [Mass/Vol]3.2 g/dL Critically low3.4-5.0OhiohealthComment on above:Performed By: #### THYLC #### [facility] [address] [place] [address] Dr. Benito DupreeAlbumin/Globulin [Mass ratio]0.7 {ratio}NormalThe [facility] CenterComment on above:Performed By: #### THYLC #### [facility] [address] [place] [address] Dr. Yilan ChangALP [Catalytic activity/Vol]92 U/QVripyu06-565Bjd [facility] CenterComment on above:Performed By: #### THYLC #### [facility] [address] [place] [address] Dr. Benito BaxterT [Catalytic activity/Vol]41 U/LSntglp85-30Ppa [facility] CenterComment on above:Performed By: #### THYLC #### [facility] [address] [place] [address] Dr. Benito Ambroseon gap [Moles/Vol]14.1 mmol/LNormalOhiohealth Comment on above:Performed By: #### THYLC #### [facility] [address] [place] [address] Dr. Benito DupreeAST [Catalytic activity/Vol]16 U/ZEvlsmg31-40Ecb [facility] CenterComment on above:Performed By: #### THYLC #### [facility] [address] [place] [address] Dr. Benito DupreeBilirubin [Mass/Vol]0.9 mg/dLNormal0.2-1.0[facility] Comment on above:Performed By: #### THYLC #### [facility] [address] [place] [address] Dr. Benito DupreeCalcium [Mass/Vol]9.1 mg/dLNormal8.5-10.1[facility] Comment on above:Performed By: #### THYLC #### [facility] [address] [place] [address] Dr. Benito DupreeChloride [Moles/Vol]97 mmol/LCritically uyo34-115CkzOhiohealthComment on above:Performed By: #### THYLC #### [facility] [address] [place] [address] Dr. Benito DupreeCO2 [Moles/Vol]24.9 mmol/AGkyhyi84.0-32.0The [facility] Comment on above:Performed By: #### THYLC #### [facility] [address] [place] [address] Dr. Benito DupreeCreatinine [Mass/Vol]0.67 mg/dLNormal0.55-1.02The [facility] CenterComment on above:Performed By: #### THYLC #### [facility] [address] [place] [address] Dr. Benito BuschGFR-AF CITIZEN [place]>60Normal>=60The [facility] Medical CenterComment on above:Performed By: #### THYLC #### [facility] [address] [place] [address] Dr. Benito BuschGFR-NON AF CITIZEN [place]>60Normal>=60The [facility] CenterComment on above:Performed By: #### THYLC #### [facility] [address] [place] [address] Dr. Benito DupreeGlobulin (S) [Mass/Vol]4.6 g/dLNormalThe [facility] CenterComment on above:Performed By: #### THYLC #### [facility] [address] [place] [address] Dr. Benito DupreeGlucose [Mass/Vol]402 mg/dLCritically lotg13-055Omc [facility] CenterComment on above:Performed By: #### THYLC #### [facility] [address] [place] [address] Dr. Benito DupreePotassium [Moles/Vol]4.0 mmol/LNormal3.5-5.1The [facility] Comment on above:Performed By: #### THYLC #### [facility] [address] [place] [address] Dr. Benito DupreeProtein [Mass/Vol]7.8 g/dLNormal6.4-8.2The [facility] Comment on above:Performed By: #### THYLC #### [facility] [address] [place] [address] Dr. Benito DupreeSodium [Moles/Vol]132 mmol/LCritically djy802-035Tkv [facility] CenterComment on above:Performed By: #### THYLC #### [facility] [address] [place] [address] Dr. Benito DupreeUrea nitrogen [Mass/Vol]10.0 mg/dLNormal7.0-18.0The [facility] CenterComment on above:Performed By: #### THYLC #### [facility] [address] [place] [address] Dr. Benito Belle nitrogen/Creatinine [Mass ratio]14.9 mg/mgNoMorrow County HospitalComment on above:Performed By: #### THYLC #### [facility] [address] [place] [address] Dr. Benito Butts 16-42-9772NEX6.676 uIU/mLNormal0.358-3.740The [facility] CenterComment on above:Performed By: #### THYLC #### [facility] [address] [place] [address] Dr. Benito DupreeVITAMIN D 25 OHon [id number] D 25-OH13.9 ng/mLNormalThe [facility] CenterComment on above:Performed By: #### INFLUAB #### [facility] [address] [place] [address] Dr. Benito Sanchez [place]ANGES[place] BELOWFirelands Regional Medical Center South CampusComment on above: Result Comment: <20 ng/mL Vit D deficient 20 - <30 ng/mL Vit D insufficient 30 - 100 ng/mL Vit D sufficient >100 ng/mL Potential ToxicityPerformed By: #### INFLUAB #### [facility] [address] [place] [address] Dr. Benito DupreeAMYLASEon [id number] [Catalytic activity/Vol]29 U/LNormal 25-115The [facility] CenterComment on above:Performed By: #### INFLUAB #### [facility] [address] [place] [address] Dr. Benito Cerna AUTO DIFFon [id number] #0.1 103/ulNormal0.0-0.1The [facility] CenterComment on above:Performed By: #### INFLUAB #### [facility] [address] [place] [address] Dr. Benito DupreeBasophils/100 WBC (Bld)0.5 %Normal0.2-2.0The [facility] Comment on above:Performed By: #### INFLUAB #### [facility] [address] [place] [address] Dr. Benito Simon #0.3 103/ulNormal0.0-0.7The [facility] CenterComment on above: Performed By: #### INFLUAB #### [facility] [address] [place] [address] Dr. Benito Buschosinophils/100 WBC (Bld)2.0 %Normal0.9-7.0The [facility] Comment on above:Performed By: #### INFLUAB #### [facility] [address] [place] [address] Dr. Benito Buschrythrocyte distribution width (RBC) [Ratio]15.3 %Critically high 11.0-15.0The [facility] CenterComment on above:Performed By: #### INFLUAB #### [facility] [address] [place] [address] Dr. Benito DupreeHematocrit (Bld) [Volume fraction]41.5 %Konszf37.0-48.0The [facility] CenterComment on above:Performed By: #### INFLUAB #### [facility] [address] [place] [address] Dr. Benito DupreeHemoglobin (Bld) [Mass/Vol]12.7 g/fOOpofxh83.0-16.0The [facility] CenterComment on above:Performed By: #### INFLUAB #### [facility] [address] [place] [address] Dr. Benito Reyes #0.06 10e3/ulCritically high0.00-0.03The [facility] Comment on above:Performed By: #### INFLUAB #### [facility] [address] [place] [address] Dr. Benito Reyes %0.4 %Normal0.0-0.5The [facility] CenterComment on above: Performed By: #### INFLUAB #### [facility] [address] [address] [address] Benito Rasheed #1.9 103/ulNormal1.2-3.8The [facility] CenterComment on above:Performed By: #### INFLUAB #### [facility] [address] [place] [address] Dr. Benito Hendersonmphocytes/100 WBC (Bld)13.9 %Critically low20.5-60.0The [facility] CenterComment on above:Performed By: #### INFLUAB #### [facility] [address] [place] [address] Dr. Benito YusufUAL DIFF REQNONormalThe [facility] CenterComment on above: Performed By: #### INFLUAB #### [facility] [address] [place] [address] Dr. Benito Escobar (RBC) [Entitic mass]24.7 pgCritically low26.7-34.0The [facility] CenterComment on above:Performed By: #### INFLUAB #### [facility] [address] [place] [address] Dr. Benito Rowe (RBC) [Mass/Vol]30.6 g/lWJqnxfm22.9-35.2The [facility] CenterComment on above:Performed By: #### INFLUAB #### [facility] [address] [place] [address] Dr. Benito Rowe (RBC) [Entitic vol]80.6 fLCritically low81.0-99.0The [facility] CenterComment on above:Performed By: #### INFLUAB #### [facility] [address] [place] [address] Dr. Benito Guajardo #0.5 103/ulNormal0.3-0.8The [facility] CenterComment on above:Performed By: #### INFLUAB #### [facility] [address] [place] [address] Dr. Benito Beverlyocytes/100 WBC (Bld)4.0 %Normal1.7-12.0The [facility] Comment on above:Performed By: #### INFLUAB #### [facility] [address] [place] [address] Dr. Benito BadilloUT #10.6 103/ulCritically high1.4-6.5The [facility] Comment on above:Performed By: #### INFLUAB #### [facility] [address] [place] [address] Dr. Benito Badilloutrophils/100 WBC (Bld)79.2 %Critically high43.0-75.0The [facility] CenterComment on above:Performed By: #### INFLUAB #### [facility] [address] [place] [address] Dr. Benito DupreePlatelet mean volume (Bld) [Entitic vol]9.3 fLCritically low 9.5-13.5The [facility] CenterComment on above:Performed By: #### INFLUAB #### [facility] [address] [place] [address] Dr. Benito DupreePLT391 103/cvEicycp086-784Fqy [facility] CenterComment on above: Performed By: #### INFLUAB #### [facility] [address] [place] [address] Dr. Benito DupreeRBC5.15 106/ulNormal4.20-5.40The [facility] CenterComment on above:Performed By: #### INFLUAB #### [facility] [address] [place] [address] Dr. Benito DupreeWBC13.4 103/ulCritically high4.0-11.0The [facility] CenterComment on above:Performed By: #### INFLUAB #### [facility] [address] [place] [address] Dr. Benito DupreeCT ABD/PELV W CONon [id number] ABD/PELV W CONEXAMINATION: CT ABD/PELV W CON [...] Electronically authenticated by: WESTLEY JHA Date: 2022-06-01 14:59[facility] URINE PROFILEon [id number] Ql (U)NegativeNormal NEGATIVEOhiohealthComment on above:Performed By: #### MARYA VILLEGASR #### [facility] [address] [place] [address] Dr. Benito Reyna (U)SL CLOUDYAbnormalCLEARThGrand Lake Joint Township District Memorial HospitalComment on above:Performed By: #### MARYA VILLEGASR #### [facility] [address] [address] [address] Benito Morales (U)YELLOWNormalYELLOWOhiohealthComment on above: Performed By: #### MARYA VILLEGASR #### [facility] [address] [address] [address] Benito Chambers micrscopic examination will be performed if indicated. NormalOhiohealthComment on above:Performed By: #### MARYA VILLEGASR #### [facility] [address] [address] [address] Benito DupreeGlucose Ql (U)NegativeNormalNEGATIVEThe Ankita HospitalComment on above:Performed By: #### NELLY, ERUR #### [facility] [address] [address] [address] Benito DupreeHemoglobin Ql (U)LARGEAbnormalNEGATIVEOhiohealth Comment on above:Performed By: #### NELLY, ERUR #### [facility] [address] [address] [address] Benito Camones Ql (U)NegativeNormalNEGATIVECincinnati Va Medical Center HospitalComment on above:Performed By: #### NELLY, ERUR #### [facility] [address] [address] [address] Benito DupreeLEUKOCYTESNegativeNormalNEGATIVEThe Saint Louis HospitalComment on above:Performed By: #### NELLY, ERUR #### [facility] [address] [address] [address] Benito DupreeNitrite Ql (U)NegativeNormalNEGATIVEOhiohealthComment on above:Performed By: #### NELLY ERUR #### [facility] [address] [address] [address] Benito DupreepH (U)5.5 [pH]Normal5-9The [facility] Medical CenterComment on above: Performed By: #### NELLY ERUR #### [facility] [address] [address] [address] Benito DupreeSPEC GRAVITY1.162Lrdeyk5.005-<=1.025The [facility] HospitalComment on above:Performed By: #### NELLY, ERUR #### [facility] [address] [address] [address] Benito Reynolds PROTEINTRACENormalNEGATIVE/ TRACEThe Saint Louis HospitalComment on above:Performed By: #### NELLY, ERUR #### [facility] [address] [address] [address] Benito Mcdaniels MICRO INDINDICATEDNormalThe Saint Louis HospitalComment on above: Performed By: #### MARYA VILLEGASR #### [facility] [address] [place] [address] Dr. Benito Espinozabilinogen Qn (U)1.0 {Tuyet'U}/dLNormal0.2 - 1.0The [facility] Medical CenterComment on above:Performed By: #### NELLY ERUR #### [facility] [address] [place] [address] Dr. Benito DupreeLACTATE/LACTIC ACIDon [id number] [Moles/Vol]1.1 mmol/L Normal0.4-1.9The [facility] CenterComment on above:Performed By: #### LACT #### [facility] [address] [place] [address] Dr. Benito DupreeLIPASEon 84-85-9097Wpwnst [Catalytic activity/Vol]111.0 U/LNormal 73.0-393.0The [facility] Medical CenterComment on above:Performed By: #### INFLUAB #### [facility] [address] [place] [address] Dr. Benito DupreePREG HCG QUALon [id number], QUALNegativeNormalNEGATIVE The [facility] CenterComment on above:Performed By: #### PREG #### [facility] [address] [place] [address] Dr. Benito DupreePROF 14(COMP METB)on 71-90-8589Rjofwic [Mass/Vol]3.6 g/dLNormal 3.4-5.0The [facility] Medical CenterComment on above:Performed By: #### INFLUAB #### [facility] [address] [place] [address] Dr. Benito DupreeAlbumin/Globulin [Mass ratio]0.7 {ratio}NormalThe [facility] CenterComment on above:Performed By: #### INFLUAB #### [facility] [address] [place] [address] Dr. Benito DupreeALP [Catalytic activity/Vol]90 U/TFsbcwn03-701Zlu [facility] CenterComment on above:Performed By: #### INFLUAB #### [facility] [address] [address] [address] Benito Cuellar [Catalytic activity/Vol]39 U/PDceire90-72Uns [facility] CenterComment on above:Performed By: #### INFLUAB #### [facility] [address] [address] [address] Benito DupreeAnion gap [Moles/Vol]13.0 mmol/LNormalThe [facility] Comment on above:Performed By: #### INFLUAB #### [facility] [address] [address] [address] Benito DupreeAST [Catalytic activity/Vol]25 U/EBrokhr05-18Qle [facility] CenterComment on above:Performed By: #### INFLUAB #### [facility] [address] [place] [address] Dr. Benito DupreeBilirubin [Mass/Vol]1.1 mg/dLCritically high0.2-1.0The [facility] CenterComment on above:Performed By: #### INFLUAB #### [facility] [address] [place] [address] Dr. Benito DupreeCalcium [Mass/Vol]9.4 mg/dLNormal8.5-10.1[facility] Comment on above:Performed By: #### INFLUAB #### [facility] [address] [place] [address] Dr. Benito DupreeChloride [Moles/Vol]99 mmol/TPbhnvu20-308Bgq [facility] Comment on above:Performed By: #### INFLUAB #### [facility] [address] [place] [address] Dr. Benito DupreeCO2 [Moles/Vol]27.3 mmol/ZSqnnlv20.0-32.0The [facility] Comment on above:Performed By: #### INFLUAB #### [facility] [address] [place] [address] Dr. Benito DupreeCreatinine [Mass/Vol]0.87 mg/dLNormal0.55-1.02The [facility] CenterComment on above:Performed By: #### INFLUAB #### [facility] [address] [address] [address] Benito BuschGFR-AF CITIZEN [place]>60Normal>=60The [facility] CenterComment on above:Performed By: #### INFLUAB #### [facility] [address] [address] [address] Benito BuschGFR-NON AF CITIZEN OF [place]>60Normal>=60The [facility] CenterComment on above:Performed By: #### INFLUAB #### [facility] [address] [address] [address] Benito DupreeGlobulin (S) [Mass/Vol]4.8 g/dLNormalThe [facility] CenterComment on above:Performed By: #### INFLUAB #### [facility] [address] [place] [address] Dr. Benito DupreeGlucose [Mass/Vol]218 mg/dLCritically wjpo21-557Pci [facility] CenterComment on above:Performed By: #### INFLUAB #### [facility] [address] [place] [address] Dr. Benito DupreePotassium [Moles/Vol]4.1 mmol/LNormal3.5-5.1The [facility] Comment on above:Performed By: #### INFLUAB #### [facility] [address] [place] [address] Dr. Benito DupreeProtein [Mass/Vol]8.4 g/dLCritically high6.4-8.2The [facility] CenterComment on above:Performed By: #### INFLUAB #### [facility] [address] [address] [address] Benito DupreeSodium [Moles/Vol]135 mmol/LCritically mgy636-080Qvw [facility] CenterComment on above:Performed By: #### INFLUAB #### [facility] [address] [place] [address] Dr. Benito DupreeUrea nitrogen [Mass/Vol]15.0 mg/dLNormal7.0-18.0The [facility] CenterComment on above:Performed By: #### INFLUAB #### [facility] [address] [address] [address] Benito DupreeUrea nitrogen/Creatinine [Mass ratio]17.2 mg/mgNoMedina Hospital on above:Performed By: #### INFLUAB #### [facility] [address] [address] [address] Benito Bee MICROSCOPIC ONLYon [id number]G SEEN [facility] on above:Performed By: #### NELLY, ERUR #### [facility] [address] [address] [address] Benito Alvaradocttez identified Cx Nom (U)NOT INDICATEDSelect Medical Specialty Hospital [facility] on above:Performed By: #### NELLY, ERUR #### [facility] [address] [place] [address] Dr. Benito Camargo SEENNormalNONE SEENAdena Pike Medical Center on above:Performed By: #### NELLY, ERUR #### [facility] [address] [address] [address] Benito Kirbyystals LM Nom (Urine sed)NONE SEENNormalNONE SEENAdena Pike Medical Center on above:Performed By: #### NELLY, ERUR #### [facility] [address] [place] [address] Dr. Oliver ChangEpithelial cells LM Ql (Urine sed)MODERATEAbnormalNONE SEEN /RARE [facility] on above:Performed By: #### NELLY, ERUR #### [facility] [address] [place] [address] Dr. Benito RamirezCOUSTRACEAbnormalNONE SEENAdena Pike Medical Center on above:Performed By: #### NELLY, ERUR #### [facility] [address] [address] [address] Benito DupreeAuwudLNX7-8Emdametn4-9PbyAdena Pike Medical Center on above:Performed By: #### NELLY, ERUR #### [facility] [address] [address] [address] Benito DupreeWBC0-2AbnormalNONE SEENOhiohealthComment on above: Performed By: #### MARYA VILLEGASR #### [facility] [address] [place], [place] [address] Dr. Benito DupreeXR hand RT min 3V*on [id number] hand RT min 3V*[facility] [employer] Other XR hand RT min 3V*[facility] [employer] Other XR hand RT min 3V*[address] [place] [address] [employer] Other XR hand RT min 3V*[place], [place] [address]Q[employer]xb [employer] Other XR hand RT min 3V*[facility] [employer] Other XR hand RT min 3V*[facility] [employer] Other XR hand RT min 3V*Patient: Noel Paul MR#: [id number] [employer] Other XR hand RT min 3V*: 1990 Acct:[id number] [employer] Other XR hand RT min 3V*Age/Sex: 31 / F ADM Date: 03/22/22 [place] [employer] Other XR hand RT min 3V*Loc: XDUCLY Room: Type: [facility] [employer] Other XR hand RT min 3V*Attending Dr: Monique SANDOVAL [place] [employer] Other XR hand RT min 3V*Ordering Provider: RIGOBERTO [facility] [employer] Other XR hand RT min 3V*Date of Service: 03/22/22[place] [employer] Other XR hand RT min 3V* XR/XR hand RT min 3V*: Finger pain, rightP[place]pano [place] [employer] Other XR hand RT min 3V*Copies to: JOSEMANUEL DiasC [place] [employer] Other XR hand RT min 3V*3 viewsRIGHT hand plain filmP[place]pano [place] [employer] Other XR hand RT min 3V*COMPARISON:[facility] [employer] Other XR hand RT min 3V*HISTORY:Fell going upstairs. RIGHT ring finger injury.[employer] Other XR hand RT min 3V*No fracture, dislocation or focal soft tissue abnormality seen.[employer] Other XR hand RT min 3V* XR/XR hand RT min 3V*[employer] Other XR hand RT min 3V*IMPRESSION:No acute findingsPompano Beach [employer] Other XR hand RT min 3V*Impression dictated by: Ta Galvan M.D.03/22/2022 4:42 [facility] [employer] Other XR hand RT min 3V*Dictation Location: [address] [employer] Other XR hand RT min 3V*Transcribed By: DANIELLE 03/22/22 [facility] [employer] Other XR hand RT min 3V*Dictated By: Ta Galvan DO 03/22/[address] [place] [address] [employer] Other XR hand RT min 3V*Signed By:[employer] Other XR hand RT min 3V*03/22/[address] [place] [address] [employer] Other Vital Signs Date TimeVital SignValuePerforming VreudxvvbWgmikpig20-75-9256 09:58-0400Body ihhekc385.5 cmPato Avelar DPM Work Phone: [facility] HospitalXetuxbuduz67-83-1998 09:58-0400Body mass index (BMI) [Ratio]56.7 kg/k3Yhnbsrebantonio Avelar DPM Work Phone: [facility] HospitalIjzmccbftv51-13-1525 09:58-0400Body zeuzjr050.62 kgNicantonio Avelar DPM Work Phone: [facility] HospitalJyhttfrakv54-22-5010 09:58-0400Respiratory rate18 /minNicantonio Avelar DPM Work Phone: [facility] HospitalMciwqqohxo94-51-1995 14:15-0400Body dpdofq695.48 cmPamela Lien 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 Phone: 1(474)037-[address] [place], [place] 5561308-11-2025 14:15-0400 Body mass index (BMI) [Ratio]62.4 kg/b8Vixoqt Lien 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 Phone: 1(669)522-[address] [place], [place] 5561308-11-2025 14:15-0400 Body ejiwaa145.67 kgPamela Lien 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 Phone: 1(246)216-[address] [place], [place] 5561308-11-2025 14:15-0400 Diastolic blood bcihrrqw24 mm[Hg]Monique Emmanuel 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 Phone: 1(747)832-[address] [place], [place] 5561308-11-2025 14:15-0400 Heart rate86 /minPamela Lien 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 Phone: 1(843)755-[address] [place], [place] 5561308-11-2025 14:15-0400 Respiratory rate18 /minPamela Lien 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 Phone: 1(554)000-[address] [place], [place] 5561308-11-2025 14:15-0400 SaO2% (BldA) [Mass fraction]97 %Moniquegisselle Whitleymer 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 Phone: 1(816)217-[address] [place], [place] 5561308-11-2025 14:15-0400 Systolic blood mm[Hg]Monique Emmanuel 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 Phone: 1(085)[address] [place], [place] 6810607-20-2025 11:26-0400 Body unarfwmxigh08 [degF]Monique Lien 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 Phone: 1(877)[address] [place], [place] 6810607-20-2025 11:26-0400 Diastolic blood qwannnzd01 mm[Hg]Monique Lien 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 Phone: 1(505)[address] [place], [place] 6810607-20-2025 11:26-0400 Heart rate78 /minPamela Lien 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 Phone: 1(310)[address] [place], [place] 6810607-20-2025 11:26-0400 Respiratory rate20 /minPamela Lien 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 Phone: 1(834)[address] [place], [place] 6810607-20-2025 11:26-0400 SaO2% (BldA) [Mass fraction]93 %Monique Lien 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 Phone: 1(172)[address] [place], [place] 6810607-20-2025 11:26-0400 Systolic blood okugsonl631 mm[Hg]Monique Lien 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 Phone: 1(690)[address] [place], [place] 6810607-20-2025 06:00-0400 Body kgPamela Lien 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 Phone: 1(018)[address] [place], [place] 6810607-19-2025 03:55-0400 Body gbekgl909.48 cmPamela Lien 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 Phone: 1(307)[address] [place], [place] 6810607-19-2025 03:00-0400 Diastolic blood chtatpnn22 mm[Hg]Monique Lien 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 Phone: 1(565)[address] [place], [place] 6810607-19-2025 03:00-0400 Heart rate80 /minPamela Lien 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 Phone: 1(616)[address] [place], [place] 6810607-19-2025 03:00-0400 Inhaled oxygen flow rate2 L/minPamela Lien 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 Phone: 1(296)[address]07-19-2025 03:00-0400 Respiratory rate18 /minMonique Whitleymer 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 Phone: 1(475)039-[address] [place], [place] 5561307-19-2025 03:00-0400 SaO2% (BldA) [Mass fraction]98 %Monique Whitleymer 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 Phone: 1(371)824-[address] [place], [place] 5561307-19-2025 03:00-0400 Systolic blood feyymyzs768 mm[Hg]Monique Lien 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 Phone: 1(395)347-[address] [place], [place] 5561307-18-2025 22:16-0400 Body qqlxzy369.48 cmPlorene Whitleymer 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 Phone: 1(796)194-[address] [place], [place] 5561307-18-2025 22:16-0400 Body yrnfwljvzxi58.9 [degF]Monique Whitleymer 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 Phone: 1(525)279-[address] [place], [place] 5561307-18-2025 22:16-0400 Body rcekyi602.14 kgMonique Whitleymer 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 Phone: 1(104)519-[address] [place], [place] 5561304-24-2025 14:16-0400 Body .5 cmNicholas Brown DPM Work Phone: 1(552)[address] [place], [place] [address]Atsgxsstby97-93-0343 14:16-0400Body mass index (BMI) [Ratio]56.7 kg/v8Dmsqlxsp Brown DPM Work Phone: 1(295)8-[address] [place], [place] [address]Fytmrzaoyy40-51-4053 14:16-0400Body yzharr461.62 kgNicholas Brown DPM Work Phone: 1(377)0-[address] [place], [place] [address]Gahlofgxkz66-35-7882 14:16-0400Respiratory rate16 /minNicholas Brown DPM Work Phone: 1(330)4-[address] [place], [place] [address]Pqdzralmcd43-73-2159 09:06-0400Body guxwtq764.5 cmNicholas Brown DPM Work Phone: [phone]-[facility] [address]Oichhulczh97-28-5878 09:06-0400Body mass index (BMI) [Ratio]56.7 kg/p2Nidbmuig Brown DPM Work Phone: 1(952)180-[address] [place], [place] [address]25 09:06-0400Body ulkxlc103.62 kgPato Avelar DPM Work Phone: [facility] HospitalUtkhhzuciz98-42-3698 09:06-0400Respiratory rate16 /Helen Avelar DPM Work Phone: [facility] HospitalZfpbglexix65-91-7743 17:00-0400Body avbgtm131.48 cmSelect [facility]03-11-2025 17:00-0400Body mass index (BMI) [Ratio]59.2 kg/e6WokpqihxoSelect Medical Specialty Hospital [facility]03-11-2025 17:00-0400Body .2 [degF][facility]03-11-2025 17:00-0400Body cjupih646.96 kgSelect Medical Specialty [facility]03-11-2025 17:00-0400Diastolic blood okwcckfh56 mm[Hg][facility]03-11-2025 17:00-0400 Heart rate82 /[facility]03-11-2025 17:00-0400 Respiratory rate18 /[facility]03-11-2025 17:00-0400 SaO2% (BldA) [Mass fraction]98 %[facility]03-11-2025 17:00-0400Systolic blood kcctowpn542 mm[Hg][facility] 12-28-2024 09:54-0500Body emzgit783.5 cmPacc 3 Work Phone: [facility]01-31-2025 09:54-0500Body mass index (BMI) [Ratio]62.06 kg/m2Pacc 3 Work Phone: [phone]01-31-2025 09:54-0500Body temperature 97.39 [degF]Pacc 3 Work Phone: [facility]01-31-2025 09:54-0500Body omeytz675.9 kgPacc 3 Work Phone: [facility]01-31-2025 09:54-0500Diastolic blood pqaixebx96 mm[Hg]Pacc 3 Work Phone: [facility]01-31-2025 09:54-0500Heart gbbm640 /minPacc 3 Work Phone: [facility]01-31-2025 09:54-0500Respiratory rate 16 /minPacc 3 Work Phone: [facility]01-31-2025 09:54-6480OxI9% (BldA) [Mass fraction]98 %Pacc 3 Work Phone: [facility]01-31-2025 09:54-0500Systolic blood qvhuckwb597 mm[Hg]Pacc 3 Work Phone: [facility]11-27-2024 14:24-0500Body jibhfm272.5 cmNicholas Brown DPM Work Phone: [address] [address]Jdegsrcxxw51-87-0740 14:24-0500Body mass index (BMI) [Ratio]56.7 kg/v9Nmpykocb Brown DPM Work Phone: 1(229)545-[address] [place] [address]-27-2024 14:24-0500Body uddreb895.62 kgNicholas Brown DPM Work Phone: [address] [address]Hhyonfhdqq97-67-6473 14:24-0500Respiratory rate18 /minNicholas Brown DPM Work Phone: [facility] HospitalBlrxtkvrhr81-99-5183 14:48-0500Body uscdlo162.5 cmNicholas Brown DPM Work Phone: [address] [address]Ripsvqzrhj63-34-4683 14:48-0500Body mass index (BMI) [Ratio]56.7 kg/g4Fkjfrsjy Brown DPM Work Phone: [address] [address]Nezfxeksnf36-28-1342 14:48-0500Body .62 kgNicholas Brown DPM Work Phone: [address] [address]Ucjielofhb09-13-5684 14:48-0500Diastolic blood khtttuwr55 mm[Hg]Pato Avelar DPM Work Phone: 1([phone])[address]11-07-2024 14:48-0500Heart rate82 /min Pato Avelar DPM Work Phone: 1(523)[address] [place] [address]-07-2024 14:48-0500Systolic blood yzbbhqnl491 mm[Hg]Pato Avelar DPM Work Phone: [phone] [place], [place] [address]Yrxgjmfanu07-98-1966 14:37-0400Body qcwyye124.5 cmPato Avelar DPM Work Phone: 1(836)[address] [place], [place] [address]80410-24-2024 14:37-0400Body mass index (BMI) [Ratio]56.7 kg/v9ZxuptdshPato Avelar DPM Work Phone: 1(192)[address] [place] [address]-24-2024 14:37-0400Body wqnyur724.62 kgPato Avelar DPM Work Phone: 1(533)[facility] [place], [place] [address]Alqrhhyrqd84-75-3075 14:37-0400Diastolic blood msrlakql36 mm[Hg]Pato Avelar DPM Work Phone: 1(175)[address] [place] [address]-24-2024 14:37-0400Heart rate79 /min Pato Avelar DPM Work Phone: 1(973)[address] [place] [address]-24-2024 14:37-0400Systolic blood atyxnwxe404 mm[Hg]Pato Avelar DPM Work Phone: 1(318)[address] [place], [place] 2880410-17-2024 14:46-0400Body hmfekt798.5 cmPato Avelar DPM Work Phone: 1(845)[address] [place] [address]-17-2024 14:46-0400Body mass index (BMI) [Ratio]56.7 kg/c9FpbxuhhkPato Avelar DPM Work Phone: 1(974)[address] [place] [address]-17-2024 14:46-0400Body zuvsuv150.62 kgPato Avelar DPM Work Phone: 1(903)889-[address] [place] [address]-17-2024 14:46-0400Diastolic blood eojkwaly91 mm[Hg]Pato Avelar DPM Work Phone: 1(926)[address] [place], [place] [address]017-2024 14:46-0400Heart rate85 /min Pato Avelar DPM Work Phone: 1(281)655-[address] [place] [address]-17-2024 14:46-0400Systolic blood onvxodlu647 mm[Hg]Pato Rodo DPM Work Phone: 1(160)389-[address] [place], [place] [address]Snvypduthg45-17-6108 14:58-0400Body .5 cmPato Rodo DPM Work Phone: 1(989)919-[address] [place], [place] [address]Jqbvzbtqzc31-55-2270 14:58-0400Body mass index (BMI) [Ratio]56.7 kg/y4CgjlsffzPato Avelar DPM Work Phone: 1(690)667-[address] [place] [address]-03-2024 14:58-0400Body izulcb840.62 kgPato Rodo DPM Work Phone: 1(774)857-[address] [place] [address]-03-2024 14:58-0400Diastolic blood rsuvqxvd46 mm[Hg]Pato Avelar DPM Work Phone: 1(433)8-[address] [place], [place] [address]Xnbjrikavm68-63-4102 14:58-0400Heart rate75 /min Pato Avelar DPM Work Phone: 1(432)778-[address] [place] [address]-03-2024 14:58-0400Respiratory rate18 /minPato Rodo DPM Work Phone: 1(667)487-[address] [place], [place] [address]Qoctffwwve60-90-5765 14:58-0400Systolic blood xvanfuvq614 mm[Hg]Pato Avelar DPM Work Phone: 1(598)835-[address] [place], [place] [address]Csotngbgnp76-25-7231 14:52-0400Body wsllgu481.5 cmPato Avelar DPM Work Phone: 1(221)928-[address] [place] [address]-05-2024 14:52-0400Body mass index (BMI) [Ratio]56.7 kg/x8ZjvwdqeqPato Avelar DPM Work Phone: [place] [address]Ilmmzddcms00-54-8143 14:52-0400Body ehbzhf669.62 kgPato Avelar DPM Work Phone: 1(520)384-[address] [place] [address]-05-2024 14:52-0400Diastolic blood mm[Hg]Patoanuj Avelar DPM Work Phone: [facility] HospitalAgbxoxicry84-18-8831 14:52-0400Heart rate82 /min Pato Avelar DPM Work Phone: [facility] HospitalFnyrvrwbln96-76-4863 14:52-0400Systolic blood zpjfikjk636 mm[Hg]Pato Avelar DPM Work Phone: [facility] HospitalPesuvtvpib06-83-2395 14:58-0400Body ugrrwh610.5 cmPaul Biedenbach DO Work Phone: [facility] HospitalAtepmzlnzy62-06-4078 14:58-0400Body mass index (BMI) [Ratio]56.7 kg/m2Paul Biedenbach DO Work Phone: [facility] HospitalSmxpgmrnju51-12-4089 14:58-0400Body pazjcr059.62 kgPaul Biedenbach DO Work Phone: [facility] HospitalYutzgwccpz60-52-9059 15:25-0400Diastolic blood mm[Hg][employer] Monique Emmanuel Work Phone: 1(262)898-[address] [place], [place] 5561306-19-2024 15:25-0400 Heart rate80 /minNP-C Monique Emmanuel Work Phone: 1(723)724-[address] [place], [place] 5561306-19-2024 15:25-0400 Respiratory rate22 /minNP-C Monique Whitleymer Work Phone: 1([phone])506-[address] [place], [place] 5561306-19-2024 15:25-0400 SaO2% (BldA) [Mass fraction]94 %[employer] Monique Whitleymer Work Phone: 1([phone])825-[address] [place], [place] 5561306-19-2024 15:25-0400 Systolic blood mm[Hg][employer] Monique Emmanuel Work Phone: 1([phone])586-[address] [place], [place] 5561306-19-2024 12:57-0400 Body byeporwdrbw81.6 [degF][employer] Monique Emmanuel Work Phone: [facility]06-19-2024 12:57-0400 Inhaled oxygen flow rate6 L/minNP-C Monique Emmanuel Work Phone: [facility]06-19-2024 10:38-0400 Body mass index (BMI) [Ratio]56.5 kg/m2NP-C Monique Emmanuel Work Phone: [facility] [place]06-19-2024 10:31-0400 Body unmkxc878.48 cmNP-C Monique Emmanuel Work Phone: [facility] [place]06-19-2024 10:31-0400 Body yznfoa444.16 kgNP-C Monique Emmanuel Work Phone: 1(132)195-[address] [place], [place] 5561305-29-2024 13:27-0400 Diastolic blood traalujm03 mm[Hg]Pato [facility]05-29-2024 13:27-0400Heart rate64 /Helen [facility]05-29-2024 13:27-0400Mean blood tpcdifxm894 mm[Hg]Pato [facility]05-29-2024 13:27-0400 Systolic blood povfipch553 mm[Hg]Pato [facility]05-29-2024 13:26-0400Heart rate65 /Helen [facility]05-29-2024 13:26-0400 Respiratory rate16 /Helen [facility]05-29-2024 13:26-4914QvD9% (BldA) [Mass fraction]93 %Pato [facility]05-29-2024 13:26-0400Blood Pressure Rupesh [facility]05-29-2024 13:26-0400Body jnehokqichk38.42 [degF][facility]ato [facility]05-29-2024 13:26-0400 Diastolic blood lpcvyzih47 mm[Hg]Pato [facility]05-29-2024 13:26-0400Mean blood iccvialw438 mm[Hg]Pato [facility]05-29-2024 13:26-0400 Systolic blood pctrawrh951 mm[Hg][facility]ato [facility]04-01-2024 17:36-0400Body zqcnit157.94 cmNP-C Monique Emmanuel Work Phone: [phone] [place], [place] 5561304-01-2024 17:36-0400 Body mass index (BMI) [Ratio]58.4 kg/m2NP-C Monique Emmanuel Work Phone: 1(679)125-[address] [place], [place] 5561304-01-2024 17:36-0400 Body wetdxehzmzt86.7 [degF]C[employer]ER-C Monique Emmanuel Work Phone: 1(870)874-[address] [place], [place] 5561304-01-2024 17:36-0400 Body ypsexc010.38 kgNP-C Monique Emmanuel Work Phone: 1(530)409-[address] [place], [place] 5561304-01-2024 17:36-0400 Heart rate87 /minNP-C Monique Emmanuel Work Phone: 3([phone])373-[address] [place], [place] 5561304-01-2024 17:36-0400 Respiratory rate18 /minNP-C Monique Whitleymer Work Phone: 9([phone])824-[address] [place], [place] 5561304-01-2024 17:36-0400 SaO2% (BldA) [Mass fraction]97 %[employer] Monique Emmanuel Work Phone: 1(335)130-[address] [place], [place] 5561304-25-2022 16:45-0400 Body .94 cmPlorene Dudley Other [employer] Other 04-25-2022 16:45-0400Body mass index (BMI) [Ratio] 58.38 kg/o9DzuudfMonique Dudley Other [employer] Other 04-25-2022 16:45-0400Body ktdoyszipuc49.9 [degF]Monique Dudley Other [employer] Other 04-25-2022 16:45-0400Body yctsic933.16 kgMonique Dudley Other [employer] Other 04-25-2022 16:45-0400Diastolic blood ebqjgcce72 mm[Hg] Monique Suemond Other [employer] Other 04-25-2022 16:45-0400Respiratory rate20 /minMonique Dudley Other [employer] Other 04-25-2022 16:45-2338LlY1% (BldA) [Mass fraction]98 % Monique Suemond Other [employer] Other 04-25-2022 16:45-0400Systolic blood pkzjheqx387 mm[Hg] Monique Suemond Other [employer] Other Encounters Encounter DateEncounter TypeCare ProviderFacilityStart: 09-05-2025 End: 12-64-3033Pirunh flowsheetPato Avelar DPMadi Work Phone: [facility] PODIATRYStart: 09-05-2025 End: 72-05-7544Uvenji flowsheetNicholas A Brown DPM Work Phone: [facility] CI PODIATRYStart: 09-05-2025 End: 95-12-6772Nbulwn outpatient visit 15 minutesPato Avelar DPM Work Phone: n[facility] CI PODIATRYComment on above:Capsulitis of metatarsophalangeal (MTP) joint of right foot (Primary Dx); Contracture of right ankle; Posterior tibial tendonitis of right legStart: 09-05-2025 End: 00-17-4685mgelnrushnIKCADKUJ A BROWNNot AvailableStart: 09-03-2025 End: 96-82-4712qkvvqagsmtMQNHZN S CRAMERFacility:[facility]tart: 2025 End: 00-91-3251ymygrxorzoTchscm Sue Cramer 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 Phone: [facility] Work Phone: Start: 2025 End: 39-34-2144Rpdguyw encounter procedureInge Adler MD-[facility] Work Phone: Start: 06-15-2025 End: 53-69-3805gkwxcqzyfqTvydan Sue CramerFacility:[facility]tart: 89-62-4110Uxyoybunkp and management of inpatientDanuria Mclaughlin MD-[facility] Work Phone: Start: 86-05-2811Fzf-patient / Non-visitLinfranklin Adler MD-[facility] Work Phone: Start: 85-29-4160jwrgoqovzjt encounterPabeverley Emmanuel 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 Phone: [facility] Work Phone: Start: 06-11-2025 End: 64-26-1259avdsqlzmmvVVMMGZ S CRAMERFacility:[facility]tart: 06-11-2025 End: 55-13-1729Xiivocubm to same day surgery centerSean Mata DPM Work Phone: OrthopaedicsComment on above:S/P foot surgery, right (Primary Dx); Chronic pain of right ankleStart: 06-11-2025 End: 41-74-8105Ptwigzurqyiy consultation with patientChvonnie Mata DPMadi Work Phone: OrthopaedicsStart: 79-70-0817boxzkmitgnPOCJTK Spencer EMMANUEL [facility]: 06-06-2025 End: 20-02-2502Roxhstizpi hospital visit by physiciani [facility] (Lg Bore/1.5t)Radiology MRIComment on above:Chronic pain of right ankle [M25.571, G89.29]Start: 05-17-2025 End: 16-50-4099Mxnpcbiyv encounterChristop Henrry Mata DPM Work Phone: OrthopaedicsStart: 05-16-2025 End: 02-25-7651Ancitei encounter procedureChristopher Henrry Mata DPM Work Phone: OrthopaedicsComment on above:S/P foot surgery, right (Primary Dx); Chronic pain of right ankleS/P foot surgery, right (Primary Dx)Start: 05-16-2025 End: 24-32-4274xkuwbseemzAJNFGK S TRANMERFacility:[facility] Hospitaltart: 05-06-2025 End: 87-44-0643Msqpygu encounter procedureCast Tech Joi Work Phone: OrthopaedicsComment on above:S/P foot surgery, right (Primary Dx)Start: 05-06-2025 End: 07-27-5814jykaoltknoWQCMAN S TRANMERFacility:[facility] Hospitaltart: 05-03-2025 End: 42-58-9563yqhwuywumhCsjvscoyznp Henrry Esperanza DPM Work Phone: OrthopaedicsStart: 05-03-2025 End: 02-22-2235Ljrbkrz encounter procedureChristopher W Esperanza DPM Work Phone: OrthopaedicsComment on above:CastStart: 04-25-2025 End: 45-89-1140Ilemaud encounter procedureChristopher Henrry Mata DPM Work Phone: OrthopaedicsComment on above:Sinus tarsitis, right (Primary Dx)S/P foot surgery, right (Primary Dx)Start: 04-25-2025 End: 34-97-9569rtwaxmmfurNKYRIA S CRAMERFacility:[facility] Hospitaltart: 04-16-2025 End: 10-78-3825mvotqwqbguFIEEUU S CRAMERFacility:[facility]tart: 03-21-2025 End: 97-88-1198Nyenvy outpatient visit 15 minutesPato Avelar DPM Work Phone: noms CI PODIATRYComment on above:Capsulitis of metatarsophalangeal (MTP) joint of right foot (Primary Dx); Type 2 diabetes mellitus without complication, unspecified whether nursing home insulin useStart: 03-21-2025 End: 64-84-4545qmswvcrjhtQFQSHFGR A BROWNNot AvailableStart: 03-21-2025 End: 80-62-5832Tpnkju Mateo Avelar DPM Work Phone: [facility] CI PODIATRYStart: 03-21-2025 End: 72-14-3046Aklzfd Mateo Avelar DPM Work Phone: [facility] CI PODIATRYStart: 03-14-2025 End: 31-96-9763Rouyeohfij hospital visit by physicianSaúl Martínez 1 Work Phone: RadiologyComment on above:S/P foot surgery, right [Z98.890]Start: 03-14-2025 End: 67-00-4205hrcrwxmhzgNjiy Ezra RT(R)RadiologyComment on above:Radiology XRStart: 03-14-2025 End: 12-68-5373Nmoqxfd encounter procedureSara Ezra RT(R)RadiologyComment on above:S/P foot surgery, right (Primary Dx)Start: 03-07-2025 End: 35-87-4480Oqzyxw flowsAlbert Elizabeth Rodo DPM Work Phone: [facility] CI PODIATRYStart: 03-07-2025 End: 19-11-8552Xqftsr kingstonCleocornelius Johnson Rodo DPM Work Phone: [facility] CI PODIATRYStart: 03-07-2025 End: 34-49-0973Ckmepn outpatient visit 15 minutesaPto Elizabeth Rodo DPM Work Phone: noms CI PODIATRYComment on above:Capsulitis of metatarsophalangeal (MTP) joint of right foot (Primary Dx)Start: 03-07-2025 End: 63-69-8604axrxhmlzrvRTZMMYLW A BROWNNot AvailableStart: 02-20-2025 End: 01-16-5385Xdselubvh encounterChristopher Henrry Mata DPM Work Phone: [facility] and Rheum InstituteComment on above:Patient UpdateStart: 02-13-2025 End: 02-41-6447Sdtriwu encounter procedureMaura Shell RT(R)Radiology Comment on above:S/P foot surgery, right (Primary Dx)Start: 02-13-2025 End: 25-90-9895dyppuwtfcqKxhuxv M Shimrock RT(R)RadiologyComment on above:Radio Gen RMPStart: 02-13-2025 End: 37-18-5926Wrqjmdjqkq hospital visit by physicianSaúl Andrews Work Phone: RadiologyComment on above:S/P foot surgery, right [Z98.890]Start: 02-05-2025 End: 00-74-7448jfeemkvoccMwgikegxdCenterville Work Phone: Start: 02-05-2025 End: 53-04-7404Upbqoah encounter procedureFirgavino Physician Group-[facility] Work Phone: Start: 01-23-2025 End: 30-46-1479syyehjjjuxVQNBYS S CRAMERFacility:[facility]tart: 01-23-2025 End: 84-86-3180Txdenuk encounter procedureChristopher W Esperanza DPM Work Phone: OrthopaedicsComment on above:S/P foot surgery, right (Primary Dx); Accessory navicular bone of right footS/P foot surgery, right (Primary Dx)Start: 05-24-0083kbzxxrplwnGPQJVN S CRAMERFacility:[facility] Hospitaltart: 01-09-2025 End: 33-65-2018fwayrtheogLIUUDG S CRAMERFacility:[facility]tart: 01-09-2025 End: 83-09-6312Emdweoc encounter procedureChristopher W Esperanza DPM Work Phone: OrthopaedicsComment on above:S/P foot surgery, right (Primary Dx); Accessory navicular bone of right footS/P foot surgery, right (Primary Dx)Start: 01-02-2025 End: 68-81-6068Mnyemxbie encounterChristopher W Esperanza DPM Work Phone: OrthopaedicsStart: 12-31-2024 End: 68-84-5711Hhyebovrw encounterChristopher W Esperanza DPM Work Phone: Orth and Rheum InstituteComment on above:Surgical FollowupStart: 12-31-2024 End: 38-04-3824gxgihaixgoMKNCWEYNVGH W HERBERTFacility:[facility] Start: 12-28-2024 End: 38-55-3888Mhvlqpbqk to [facility] 3 Work Phone: Pre AnesthesiaStart: 12-28-2024 End: 42-71-1221dgbdogvjnmKZNGNY S TRANMERFacility:[facility] Hospitaltart: 12-28-2024 End: 35-98-5052Lwkltipqnh [facility] 3 Work Phone: Pre AnesthesiaComment on above:Pre-op evaluation (Primary Dx); Gastroesophageal reflux disease, unspecified whether esophagitis present; Diabetes mellitus without complication (HCC); BMI 60.0-69.9, adult (HCC); AQUILES (obstructive sleep apnea)Start: 66-80-9274Tqlhwoscj for other preprocedural examinationPAMELA [facility] ClevelandStart: 12-28-2024 End: 17-55-8948Xzyqgobghnjjm examination doneProvidence St. [facility] 3 Work Phone: [facility] Work Phone: Start: 12-14-2024 End: 92-63-4802Hzqrzw OnlyChvonnie Mata DPM Work Phone: OrthopaedicsComment on above: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)Start: 12-12-2024 End: 69-67-4399Zkmocalaw encounterChvonnie Mata DPM Work Phone: OrthopaedicsComment on above:Surgical FollowupStart: 12-12-2024 End: 93-15-7735Jhqafqo encounter procedureDajacob Reynoso RT(R)RadiologyComment on above:Pain in right foot (Primary Dx); Accessory navicular bone of right footStart: 12-12-2024 End: 05-06-1013tzyvoegvqrPbhjkh Coleman RT(R)RadiologyComment on above:Radiology XRStart: 12-12-2024 End: 05-11-5378Bniwmolleq hospital visit by physicianSaúl Andrews Work Phone: RadiologyComment on above:Pain [R52]Start: 12-05-2024 End: 52-88-1726Pqykcq OnlyChristopher Henrry LEDESMAM Work Phone: Orth and Rheum InstituteComment on above:Pain (Primary Dx)Start: 11-26-2024 End: 70-70-9618mkzxqrvsoyATHTA ELOhioHealth Doctors Hospitaltart: 10-24-2024 End: 11-01-0378Jveqbp follow up visit related to original Jamilah Avelar DPM Work Phone: [facility] SC PODComment on above:Stress fracture of right foot, initial encounter (Primary Dx); Type 2 diabetes mellitus without complication, 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 (CMS/HCC); Accessory navicular bone of right footStart: 10-24-2024 End: 59-16-1315zhvdtikfffOQGQAGXU A BROWNNot AvailableStart: 10-24-2024 End: 31-53-3978Qijfsg flowsheetNicholas A Brown DPM Work Phone: [facility] CO PODStart: 10-24-2024 End: 99-33-4627Ocfrsm flowsheetNicholas A Brown DPM Work Phone: [facility] CO PODStart: 10-04-2024 End: 91-34-7191Pvfqyr follow up visit related to original pxNicholas A Brown DPM Work Phone: [facility] CI PODIATRYComment on above: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); Contracture of right ankle; Stress fracture of right foot, initial encounterStart: 10-04-2024 End: 01-71-8020dnrzmychqtRYYQZNJY A BROWNNot AvailableStart: 10-04-2024 End: 65-34-7547Ygmgtb flowsheetNicholas A Brown DPM Work Phone: [facility] PODIATRYStart: 10-04-2024 End: 29-71-4299Aipgpd flowsheetNicholas A Brown DPM Work Phone: [facility] PODIATRYStart: 09-20-2024 End: 70-64-1788Icvcww follow up visit related to original pxNicholas A Brown DPM Work Phone: [facility] CI PODIATRYComment on above: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); Contracture of right ankleStart: 09-20-2024 End: 74-40-2579ffdhsgtcypKHRTBJPV A BROWNNot AvailableStart: 09-20-2024 End: 94-83-2036Dymfrv flowsheetNicholas A Brown DPM Work Phone: [facility] CI PODIATRYStart: 09-20-2024 End: 35-99-2399Xakkmy flowsheetNicholas A Brown DPM Work Phone: [facility] CI PODIATRYStart: 09-13-2024 End: 92-67-3980Uykgvm follow up visit related to original pxPato Avelar DPM Work Phone: noms CI PODIATRYComment on above: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); Contracture of right ankle; Type 2 diabetes mellitus without complication, unspecified whether nursing home insulin use ([facility])Start: 09-13-2024 End: 56-46-7167fmrfhkzrgaFWOOCUIK A BROWNNot AvailableStart: 09-07-2024 End: 96-56-3678Agrbblesk encounterNicantonio Avelar DPM Work Phone: [facility] CI PODIATRYStart: 09-05-2024 End: 75-93-7583Mih Drop offPato Avelar [facility] Start: 09-05-2024 End: 96-58-2717uureqlruovCQT Pato AvelarFacility:FTMCStart: 08-30-2024 End: 60-50-7336Xhjqmm outpatient visit 25 minutesPato Avelar DPM Work Phone: noms CI PODIATRYComment on above: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); Type 2 diabetes mellitus without complication, 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 ([facility]); Heel spur, left; Plantar fasciitis; Contracture of left ankle; Contracture of right ankleStart: 08-30-2024 End: 11-57-2650Shxnyl flowsheetPato Avelar DPM Work Phone: [facility] CI PODIATRYStart: 08-30-2024 End: 95-91-6127Tdyhrg flowsheetNicantonio Johnson Brown DPM Work Phone: [facility] CI PODIATRYStart: 08-02-2024 End: 41-33-0583Mcfdrn outpatient visit 15 minutesPato Avelar DPM Work Phone: noms CI PODIATRYComment on above: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); Posterior tibial tendonitis of right leg; Type 2 diabetes mellitus without complication, 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 ([facility])Start: 08-02-2024 End: 66-54-4131Tvhbjr kingstonNicantonio A Brown DPM Work Phone: [facility] CI PODIATRYStart: 08-02-2024 End: 29-74-7864Fhbaam flowsheetNicholas A Brown DPM Work Phone: [facility] CI PODIATRYStart: 07-24-2024 End: 80-51-2143Nxnvop outpatient new 45 minutesPaul S Biedenbach DO Work Phone: [facility] NORWALKComment on above:Arthralgia of left temporomandibular joint (Primary Dx); Left ear pain; Chronic rhinitis; Fullness in ear, leftStart: 07-24-2024 End: 92-45-5147Zxxwiy flowsheetPaul S Biedenbach DO Work Phone: [facility]NT NORWALKStart: 07-24-2024 End: 81-74-0475Ypjpkj flowsheetPaul S Biedenbach DO Work Phone: [facility] NORWALKStart: 07-19-2024 End: 06-01-4253Vgmotx outpatient visit 15 minutesNicantonio A Brown DPM Work Phone: noms CO PODComment on above:Posterior tibial tendonitis of right leg (Primary Dx); Accessory navicular bone of left foot; Type 2 diabetes mellitus without complication, 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 ([facility]); Accessory navicular bone of right footStart: 07-19-2024 End: 54-14-4647Epklaf dannyheetNicholas A Brown DPM Work Phone: noms CO PODStart: 07-19-2024 End: 36-65-6853Hraqjm flowsheetNicholas A Brown DPM Work Phone: noms CO PODStart: 07-19-2024 End: 60-18-8167Jlsfrhsvk encounterNicantonio Avelar DPMadi Work Phone: [facility] CI PODIATRYComment on above:Casting For Braces Or OrthoticsStart: 06-28-2024 End: 24-82-7856lyszmxdzqtYJAVGOHI A BROWNNot AvailableStart: 06-07-2024 End: 66-08-6982msmcbljqqlBPQECKYM A BROWNNot AvailableStart: 05-24-2024 End: 52-76-8792btvgqjofssWTLJJNDC A BROWNNot AvailableStart: 05-16-2024 End: 63-38-6340Myngajjoj to same day surgery centerLORI Emmanuel Work Phone: [facility] Main CampusStart: 05-16-2024 End: 89-64-9071honnupdirlJZ-Teresa Emmanuel Work Phone: [facility] Work Phone: Start: 05-03-2024 End: 94-54-1915iokitefqvuWGTWDTXT A BROWNNot AvailableStart: 04-25-2024 ambulatoryNicholas Elizabeth AvelarFacility:FTMCStart: 04-25-2024 End: 38-67-1741zefcfsukirTAX Pato AvelarFacility:FTMCStart: 04-25-2024 End: 27-43-5878Ziiwdav encounter procedureNicjorge luisas Elizabeth [facility]velar [facility] Start: 04-16-2024 End: 82-19-1078Job-admission assessmentNicjorge luisas A Rodo [facility] Start: 04-12-2024 End: 31-34-7483airunwgnubZWFYUKXM A BROWNNot AvailableStart: 03-29-2024 End: 69-77-8236gjhgdzbmkrJMDMMRRC A BROWNNot AvailableStart: 02-27-2024 End: 52-78-0048vhcrdmvdobSM-C Monique Emmanuel Work Phone: [facility] Work Phone: Start: 02-27-2024 End: 75-24-4062Mqqqwdp encounter procedureNP-C Monique Emmanuel Work Phone: [facility] Work Phone: Start: 47-66-9526lautzkpbwcNBPEWI CRAMERFacility:H1 Start: 01-05-2023 End: 76-46-6564gbfqyyaujhHOGBST CRAMERFacility:Z9Ixdlf: 11-28-2022 End: 54-03-2112grkkqunmfxBSQBMO CRAMERFacility:Q8Uwrki: 11-15-2022 End: 12-74-2490baypizxhblHHWQBX CRAMERFacility:A4Ltmcm: 10-25-2022 End: 92-14-3296jeqrsdrjiiSZPVNS CRAMERFacility:T5Athvl: 08-25-2022 End: 04-80-5344jeandtxbyaUNXUKL CRAMERFacility:P8Eksqs: 61-91-9690Bfnbwmyzy for general adult medical examination without abnormal findingsMONIQUE Luciano HospitalStart: 08-18-2022 End: 68-20-2807pnaserjcfzTMCCJN CRAMERFacility:D6Kmuqv: 08-18-2022 End: 38-64-5779Bvgnefawb for general adult medical examination without abnormal findingsPAMELA LIENFacility:U2Llmpb: 06-01-2022 End: 84-40-1075nvxnzaqsjzYL WESTLEY JHAFacility:M5Usmpo: 03-22-2022 End: 26-01-6895gvfkjwvbmpYzgnsr Dymond Other [employer] Other Start: 28-91-2850Lbxujk outpatient visit 15 minutes Monique DudleyFPG [facility] Procedures DateProcedureProcedure DetailPerforming ClinicianStart: 66-48-0052Jvvtm chest X-rayPabeverley Emmanuel 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 Phone: Start: 30-30-8476Qxd any jt lower extrem w/o contrast matrlChristopher W Esperanza DPM Work Phone: Start: 95-62-8045Iwtzxgoufuxvyp aspir&/inj interm jt/burs w/o usChristopher W Esperanza DPM Work Phone: Start: 34-49-5199Tivbr foot complete minimum 3 views Brianophchristelle Mata DPM Work Phone: Start: 62-95-8848Ojhkp foot complete minimum 3 views Sean Sales Esperanza DPM Work Phone: Start: 51-17-8650Tzzuj foot complete minimum 3 views Sean Sales Esperanza DPM Work Phone: Start: 53-18-3992AcusrzhxavpCI-C Monique Lien Work Phone: Start: 97-28-1741W-ray of left footNP-C Monique Lien Work Phone: Start: 68-67-9265Rpzcb X-ray of right shoulderNP-C Monique Emmanuel Work Phone: [facility]olecystectomyNicEllis [facility] Plan of Treatment DateCare ActivityDetailAuthorStart: 26-28-9115Ensyw microalbumin profile DTaP,Tdap,Td Vaccine (7 - Td or Tdap)[facility]: 09-06-2025 End: 37-09-3886Jxlilcj encounter kvibgvxmz04/10/2025 9:30 AM EDT Office Visit [facility] [address] [place] [address] Katrin Molina, DPM [address] [place] [address] [facility] PodiatryStart: 09-05-2025 End: 61-58-4613Qcylmak encounter /09/2025 10:40 AM EDT Office Visit [facility] [address] [place] [address] Pato Avelar DPM [address] [facility] [address] [place] [address] ArrivedNOMS CI PODIATRYComment on above:ArrivedStart: 74-50-2602Mavnxoizd vaccinationOhioHealth O'Bleness Hospitaltart: 08-52-9120TawktcvimClinton Memorial Hospitaltart: 14-37-7088Mcxek disorder assessmentClinton Memorial Hospitaltart: 06-15-2025 End: 40-02-5455VlsnclqitClinton Memorial Hospitaltart: 81-77-6607Pqtygfri to cardiologistClinton Memorial Hospitaltart: 99-98-2163Cgsbcztg admission [facility]: 06-11-2025 End: 26-97-9357Plltbrf encounter roysbteml82/15/2025 9:45 AM EDT Office Visit Orthopaedics [address] [place] [address] Sean Mata, CALLIEM [address] [place] [address] F/U, 3 weeksOrthopaedicsComment on above:F/U, 3 weeks Start: 06-06-2025 End: 34-09-4379Nfqaysu encounter edvxykcev24/10/2025 8:00 AM EDT Appointment Radiology MRI [address] [place] [address] right ankle Radiology MRIComment on above:right ankleStart: 05-16-2025 End: 89-68-6317Omuwxlx encounter procedureOrthopaedicsComment on above:right footF/U, 3 weeksStart: 03-21-2025 End: 94-21-4859Tylcuwb encounter cxkipllry58/24/2025 2:20 PM EDT Office Visit [facility] [address] [place] [address] Pato Avelar DPM [address] [address] Capsulitis of metatarsophalangeal (MTP) joint of right foot (Primary Dx); Type 2 diabetes mellitus without complication, unspecified whether nursing home insulin useNOMS CI PODIATRYComment on above:Capsulitis of metatarsophalangeal (MTP) joint of right foot (Primary Dx); Type 2 diabetes mellitus without complication, 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Start: 03-14-2025 End: 76-11-1058Wqawlnv encounter hytajcnjz99/17/2025 3:45 PM EDT Office Visit Orthopaedics [address] [place] [address] Sean Mata, SHITAL [address] [place] [address] Post op right foot, SX 12/31/24OrthopaedicsComment on above:Post op right foot, SX 12/31/24Start: 03-07-2025 End: 64-97-6015Kubfaxa encounter hislgvwfw82/10/2025 9:00 AM EDT Office Visit [facility] [address] [place] [address] Pato Avelar DPM [address] [address] ArrivedNOMS CI PODIATRYComment on above:ArrivedStart: 02-13-2025 End: 66-38-2494Wbooyyr encounter procedureOrthopaedicsComment on above:Post op right foot, SX 12/31/24Start: 01-23-2025 End: 59-43-7183Ofbsfuk encounter procedureOrthopaedicsComment on above:Post op right foot, SX 12/31/24Right FootStart: 01-09-2025 End: 14-95-2157Nkvavkb encounter vmbipiopw89/12/2025 10:15 AM EST Office Visit Orthopaedics [address] [place] [address] Sean Mata DPM [address] [place] [address] Post op right foot, SX 12/31/24OrthopaedicsComment on above:Post op right foot, SX 12/31/24Start: 12-31-2024 End: 49-60-7640Poluqjfvt to same day surgery gxypwj3112/31/2024 1:30 PM EST - 12/31/2024 3:30 PM EST Surgery Ambulatory Surgery [address] [place] [address] Sean Mata, SHITAL [address] [place], [place] [phone] (Work) RECONSTRUCTION POSTERIOR TIBIAL TENDON W/EXCISION OF ACCESSORY TARSAL NAVICULAR BONEAmbulatory SurgeryComment on above:RECONSTRUCTION POSTERIOR TIBIAL TENDON W/EXCISION OF ACCESSORY TARSAL NAVICULAR BONEStart: 12-31-2024 End: 09-67-0053Hcvcxq pst tibl tdn w/exc accessory tarsl navclrRECONSTRUCTION POSTERIOR TIBIAL TENDON W/EXCISION OF ACCESSORY TARSAL NAVICULAR BONE Accessory navicular bone of right foot 12/31/2024 1:30 PM [facility] [place]Start: 51-08-1443Xoizodhvye hospital visit by hsixxjvdf31/03/2025 1:30 PM EST Hospital Encounter Ambulatory Surgery [address] [place] [address] Sean Mata DPM [address] [place] [address] 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]Ambulatory SurgeryComment on above: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]Start: 12-31-2024 End: 36-26-5979Zkqutnkwx to same day surgery rzvltr2812/31/2024 7:30 AM EST - 12/31/2024 9:25 AM EST Surgery Ambulatory Surgery [address] [place] [address] Sean Mata, DPM [address] [place], [place] [phone] (Work) RECONSTRUCTION POSTERIOR TIBIAL TENDON W/EXCISION OF ACCESSORY TARSAL NAVICULAR BONEAmbulatory SurgeryComment on above:RECONSTRUCTION POSTERIOR TIBIAL TENDON W/EXCISION OF ACCESSORY TARSAL NAVICULAR BONEStart: 12-31-2024 End: 58-82-6453Bnpaltuwqa jetesvovguat59/03/2025 7:30 AM EST Anesthesia Event Ambulatory Surgery [address] [place], [place] [phone] [place] [address] [place] [address] Ambulatory SurgeryStart: 12-31-2024 End: 16-95-1971Wbjmno pst tibl tdn w/exc accessory tarsl navclrRECONSTRUCTION POSTERIOR TIBIAL TENDON W/EXCISION OF ACCESSORY TARSAL NAVICULAR BONE Accessory navicular bone of right foot 12/31/2024 7:30 AM [facility] [place]Start: 42-45-7350Npnsdnskbr hospital visit by qknicehlo13/03/2025 7:30 AM EST Hospital Encounter Ambulatory Surgery [address] [place] [address] Sean Mata, DPM [address] [place] [address] 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]Ambulatory SurgeryComment on above: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]Start: 12-28-2024 End: 38-32-1938Gmdpuehvyh hbagqbfhfiol18/31/2025 10:10 AM EST PAT Pre Anesthesia [address] [place] [address] PACC right foot, SX 12/31/24Pre AnesthesiaComment on above:PACC right foot, SX 12/31/24Start: 11-01-2024 End: 37-80-3989Yjzkhvg encounter muwmfqkhc51/05/2024 4:20 PM EST Office Visit [facility] [address] [address] Pato Avelar DPM [address] [address] [facility] CI PODIATRYStart: 10-24-2024 End: 26-27-8374Tnyticl encounter xouzfakjs15/27/2024 2:40 PM EST Office Visit [facility] [address] [place] [id number] Pato Avelar, DPM [address] [address] Stress fracture of right foot, initial encounter (Primary Dx); Type 2 diabetes mellitus without complication, 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 (CMS/HCC)[facility] SC PODComment on above:Stress fracture of right foot, initial encounter (Primary Dx); Type 2 diabetes mellitus without complication, unspecified whether nursing home insulin use (CMS/HCC)Start: 34-30-4624Lnhpydqsb B Vaccine (3 of 3 - 3-dose series)Hepatitis B Vaccine (3 of 3 - 3-dose series)[facility]: 10-04-2024 End: 58-64-9167Tkjstjp encounter hlglowppj44/07/2024 2:40 PM EST Office Visit [facility] [address] [facility] [address] [place] [address] Pato Avelar DPM [address] [address] 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); Contracture of right ankleNOMS CI PODIATRYComment on above: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); Contracture of right ankleStart: 09-20-2024 End: 63-66-6046Fpnlfki encounter ebnkouflh23/24/2024 2:40 PM EDT Office Visit [facility] [address] [facility] [address] [place] [address] Pato Avelar DPM [address] [address] 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); Contracture of right ankleNOMS CI PODIATRYComment on above: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); Contracture of right ankleStart: 09-13-2024 End: 43-09-7198Epdyafa encounter xgughuvgv36/17/2024 3:20 PM EDT Office Visit [facility] [address] [phone] Pato Avelar, DPM [address] [address] [facility] CI PODIATRYStart: 09-12-2024 End: 28-51-2169Aqnmcuz encounter inlarlckc36/16/2024 3:00 PM EDT Office Visit [facility] [address] [place] [address] Pato Avelar, DPM [address] [address] [facility] SC PODStart: 09-05-2024 End: 31-85-8516Ghteyhl encounter zzusdfdph03/09/2024 7:30 AM EDT Procedure Visit [facility]P Pato Avelar, DPM [address] [address] [facility] EXT DEPStart: 08-30-2024 End: 90-04-9149Liwllys encounter /03/2024 2:50 PM EDT Office Visit [facility] [address] [facility] [address] [place] [phone] Pato Avelar, DPM [address] [address] 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); Type 2 diabetes mellitus without complication, unspecified whether nursing home insulin use ([facility] CI PODIATRYComment on above: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); Type 2 diabetes mellitus without complication, 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 ([facility])Start: 08-02-2024 End: 71-84-5361Cuerlxo encounter procedureNOMS CI PODIATRYComment on above: 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); Posterior tibial tendonitis of right leg; Type 2 diabetes mellitus without complication, unspecified whether nursing home insulin use ([facility])Start: 09-91-0893Rywhn-19 Vaccine ( season) Covid-19 Vaccine ()[facility]: 68-28-9046Jicssamqh vaccinationInfluenza Vaccine (#1)[facility] HealthcareStart: 07-24-2024 End: 12-17-8065Ksydcyd encounter procedureNOMS ENT NORWALKComment on above: ArrivedStart: 07-19-2024 End: 87-31-9968Hrgfrig encounter /22/2024 4:00 PM EDT Office Visit [facility] [address] [place] [address] Pato Avelar DPM [address] [address] Accessory navicular bone of left foot (Primary Dx); Type 2 diabetes mellitus without complication, unspecified whether nursing home insulin use ([facility] SC PODComment on above:Accessory navicular bone of left foot (Primary Dx); Type 2 diabetes mellitus without complication, 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 ([facility])Start: 55-24-8358HmhcrqxaqClinton Memorial Hospitaltart: 94-54-1664BihsjnnfkClinton Memorial Hospitaltart: 01-38-3635Ybuugadug for malignant neoplasm of cervixNOMS HealthcareStart: 24-11-5635Vmvtbbqxm for malignant neoplasm of cervixNOMS HealthcareStart: 03-19-2243Vruvdcjhrjft vaccinationPneumococcal Vaccine (1 of 2 - PCV)[facility]: 2007 Urine screening for proteinDiabetes: Urine Protein ScreeningFreeman [facility]osho Hospital Start: 39-90-3495Rhphat PCP Team Chronic Disease VisitAnnual PCP Team Chronic Disease VisitOhioHealth O'Bleness Hospitaltart: 75-53-2677Sojgrci ScreeningAnxiety Screening [facility]: 50-82-3927Spkisujpyy ScreeningDepression Screening [facility]: 68-62-2031Dcocpucub B surface antibody levelLDL CholesterolOhioHealth O'Bleness Hospitaltart: 52-49-4787Uittxmucc C screeningHepatitis C ScreeningOhioHealth O'Bleness Hospitaltart: 07-27-9468CTL screeningHIV ScreeningOhioHealth O'Bleness Hospitaltart: 55-87-4231Zkanc microalbumin profileDTaP,Tdap,Td Vaccine (6 - Tdap) [facility]: 23-61-0700Ppronyyi foot examinationDiabetic Foot Exam [facility]: 86-44-0854Cuqgaqpc screeningFreeman Neosho HospitalStart: 01-63-5779Gpebkmumx B screeningUrine Albumin:Creatinine RatioParkwood Hospital Start: 08-33-9874Bwdkeizkwr A1c refrqaucryaXnO0GSpsdvgxbq ClinicStart: 91-18-1666Yiqqbizyok A1c measurementDiabetes: Hemoglobin D1DMUYJFreeman Neosho HospitalAnion gap measurementSelect Medical Specialty Hospital - TrumbullApplication short leg cast walking/ambulatoryCAST DAVID LEG, SHORT(WALKING) Procedures Routine Sinus tarsitis, right Ordered: 04/25/2025[facility] Work Phone: comment on above:Ordered: 04/25/2025asophils [#/volume] in Blood by Automated [facility] Basophils/100 leukocytes in Blood by Automated [facility] CampusCalculated LDL cholesterol levelSelect Medical Specialty Hospital - Trumbull Cholesterol.total/Cholesterol in HDL [Mass Ratio] in Serum or PlasmaSelect Medical Specialty Hospital - TrumbullEosinophils/100 leukocytes in Blood by Automated count [facility] - TrumbullErythrocyte distribution width [Ratio] by Automated [facility] CampusErythrocytes [#/volume] in Blood [facility] - TrumbullGlucose [Mass/volume] in Serum or Plasma [facility] TrumbullGlucose measurement estimated from glycated hemoglobinSelect Medical Specialty Hospital - TrumbullHematocrit [Volume Fraction] of Blood [facility] - TrumbullHemoglobin [Mass/volume] in BloodSelect Medical Specialty Hospital - TrumbullHemoglobin A1c/Hemoglobin.total in BloodSelect Medical Specialty Hospital - TrumbullLeukocytes [#/volume] corrected for nucleated erythrocytes in Blood by Automated counSelect Medical Specialty Hospital - Trumbull Leukocytes [#/volume] in BloodSelect Medical Specialty Hospital - TrumbullLymphocytes [#/volume] in Blood by Automated [facility] Lymphocytes/100 leukocytes in Blood by Automated [facility] CampusMCH [Entitic mass] by Automated [facility] MCHC [Mass/volume] by Automated [facility] CampusMCV [Entitic volume] by Automated [facility] CampusMonocytes [#/volume] in Blood by Automated [facility] Monocytes/100 leukocytes in Blood by Automated [facility] End: 86-34-9448XT Ankle - right WO contrastMRI ANKLE WO IVCON RIGHT Radiology Routine Chronic pain of right ankle 1 Occurrences starting 05/16/2025 until 06/15/2026[facility] Work Phone: comment on above:1 Occurrences starting 05/16/2025 until 06/15/2026MR Foot - right WO contrastMR foot right wo IV contrast Imaging Routine Stress fracture of right foot, initial encounter Ordered: 10/04/2024[facility] Work Phone: Comment on above:Ordered: 10/04/2024Neutrophils [#/volume] in Blood by Automated [facility] Neutrophils/100 leukocytes in Blood by Automated [facility] CampusNucleated erythrocytes [Presence] in Blood by Automated [facility] CampusPatient EducationKnow your MedsUniversity Hospitals St. [facility] Ctr Work Phone: Patient referralUniversity Hospitals St. [facility] Work Phone: Platelet mean volume [Entitic volume] in Blood by Automated [facility] CampusPlatelets [#/volume] in Blood [facility] Hospital - TrumbullVLDL cholesterol measurementSelect Medical Specialty Hospital - TrumbullXR Foot - right 3 ViewsXR foot 3+ views right Imaging Routine Accessory navicular bone of right foot 09/13/2024 3:04 PM [facility]TSAN[facility] Work Phone: XR Foot - right 3 ViewsXR foot 3+ views right Imaging Routine Accessory navicular bone of right foot 08/02/2024 3:28 PM [facility] Work Phone: End: 88-51-8249QZ Foot - right AP and Lateral and obliqueXR FOOT GENERAL 3V AP/LAT/OBL RIGHT Radiology Routine S/P foot surgery, right 1 Occurrences starting 01/03/[address] [place] [address] Work Phone: Comment on above:1 Occurrences starting 01/03/2025 until 02/02/2026 End: 40-76-1627GX Foot - right AP and Lateral and obliqueXR FOOT GENERAL 3V AP/LAT/OBL RIGHT Radiology Routine S/P foot surgery, right 1 Occurrences starting 01/16/[address] [place] [address] Work Phone: Comment on above:1 Occurrences starting 01/16/2025 until 02/10/2026 End: 69-59-4082ZS Foot - right AP and Lateral and obliqueXR FOOT GENERAL 3V AP/LAT/OBL RIGHT Radiology Routine S/P foot surgery, right 1 Occurrences starting 03/14/[address] [place] [address] Work Phone: comment on above:1 Occurrences starting 03/14/2025 until 04/07/2026 Immunizations Immunization DateImmunizationNotesCare GvrjvzcnEyecelan47-23-6535cimcezuss B vaccine, pediatric or pediatric/adolescent dosagePa [employer] [facility] DO Work Phone: [facility] HospitalPfqnaktnee35-92-5830nuisrlh, mumps and rubella virus vaccineMelrose [employer] [facility] DO Work Phone: [facility] HospitalKubgsjnvgv96-91-2777tihrfpkfqv, tetanus toxoids and pertussis vaccineMelrose [employer] [facility] DO Work Phone: [facility] HospitalQgflpapgaf49-51-4964amdrfirbn poliovirus vaccine, live, oralPa [employer] [facility] DO Work Phone: [facility] HospitalJhzofhqkkt47-93-6153mkmlpkvnqom influenzae type b vaccine, conjugate unspecified formulationPa [facility] DO Work Phone: [facility] HospitalKnbylctukq42-32-7886lblxdhwdei, tetanus toxoids and pertussis vaccinePaul Biedenbach DO Work Phone: [facility] HospitalCjmwdtepur30-15-6804yahbtcl, mumps and rubella virus vaccinePaul Biedenbach DO Work Phone: [facility] HospitalOpwhjkarpl91-00-1623gbpeztvsq poliovirus vaccine, live, oralPaul Biedenbach DO Work Phone: [phone] [place], [place] [address]Wfvfrjglqq99-26-9216dpalnmrmlt, tetanus toxoids and pertussis vaccinePaul Biedenbach DO Work Phone: [phone] [place], [place] [address]Gqnqyhofcf81-73-5541elpwcewsvc, tetanus toxoids and pertussis vaccinePaul Biedenbach DO Work Phone: [phone] [place], [place] [address]Xxttwqatwl23-06-3076rtyatkwht poliovirus vaccine, live, oralPaul Biedenbach DO Work Phone: [phone] [place], [place] [address]Cjixjkqvld85-64-9280yawrjyobpa, tetanus toxoids and pertussis vaccinePaul Biedenbach DO Work Phone: [phone] [place], [place] [address]Zooptanxxg18-42-4144sqscrtqow poliovirus vaccine, live, oralPaul Biedenbach DO Work Phone: [phone] [place] [address] Payers DatePayer CategorySdyerSuburban Community Hospitaly [id number]-fut [id number] Blue [id number]4.098094.34455-82-4474 Unknown1.2.840.486851.1.13.693.2.7.3.081[id number] 2.16.840.1.539685.3.57[id number] 2.16.840.1.428656.3.579.[id number] 2.16.840.1.665522.3.579.2.9[id number] 2.16.840.1.900286.3.579.2.09285-18-8034Xpgflhj0232592 2.16.840.1.224403.3.579.2.80176-87-6171Erowamw0762614 2.16.840.1.870671.3.579.2.12287-20-3389Ipaqeoj3921903 2.840.1.516519.3.579.2.89772-43-1237Zfvykex7262465 2.840.1.909624.3.579.2.05539-65-2297Bclbfet59665002 2.0.1.527206.3.579.2.98295-88-3017Nlipkbf8302567 2.840.1.173207.3.579.2.646456-40-3656Fduwsex9865028 2.0.1.511038.3.579.2.301322-79-8757Zfhgxrl4894055 2.840.1.905393.3.579.2.147991-80-4757Skshdes0193957 2.840.1.226973.3.579.2.926345-41-3560Jwybexz4267568 2.840.1.882609.3.579.2.551624-68-3724Lkhzopo3159112 2.840.1.197833.3.579.2.379549-43-2093Mtgymzh69108043 2.840.1.078779.3.579.[id number] 2.840.1.171202.3.579.2.342879-46-7410Essjviq0302459 2.16.840.1.296215.3.579.2.865890-84-8753Eymegif6764299 2.16.840.1.343270.3.579.2.326224-54-3213Chhtjag8146908 2.16.840.1.196998.3.579.2.140369-17-1402Qpxnbxf3957804 2.16.840.1.161592.3.579.2.770347-10-4662Ybxjkst0805302 2.16.840.1.824708.3.579.2.906691-18-9558Iondztd9382061 2..840.1.410121.3.579.2.514557-32-7109Hnldeuu4693367 2.840.1.322894.3.579.2.963368-08-3057KibkCrownpoint Healthcare [id number] 2..840.1.798449.12Eryjfdq51086741 2.840.1.303733.3.579.2.531 Social History DateTypeDetailFacilityUnknown if ever smokedNort Liaison Technologies Other Start: 08-02-2024 End: 93-90-5939Zqu Assigned At [facility]tart: 10-25-2018 End: 82-26-8139Jnacnqg smoking status NHISNever smoked tobacco (finding) [facility] CenterStart: 88-79-9118Qtk Assigned At [facility] HospitalTobacco smoking statusNo Smoking Status Entered [facility] Avontart: 03-29-2024 End: 72-74-4933Hmyrkqx use and exposureSmokeless tobacco non-userN[facility] Healthcare Start: 08-02-2024 End: 04-98-0533Hphjnmdqb beverage intakeLifetime non-drinker (finding)[facility] HealthcareStart: 08-02-2024 End: 86-68-5528Njyxvrp of Social functionSmithfield ClinicStart: 74-05-1805Vfs assigned at birthNot on fileNOAL HealthcareTobacc smoking status NHISTobacco smoking consumption unknownParkwood HospitalAdgerald [facility] Depression Screening Assessment 2Clevelcentral harnett hospital ClinicStart: 35-05-4518GdhVryueu (finding)[facility] TrumbullNEGATED: Highlighted rowStart: NINFHistory of tobacco usePassive smoker [facility] Medical Equipment Procedure CodeEquipment CodeEquipment Original TextEquipment IdentifierDates Wound debridementTendon/ligament bone anchor, non-bioabsorbable [id number] FDAStart: 18-14-7364Rndhdw Suturetak Fiberwire 1 .5 Zuni 2 Joselin Biocomposite 26.2mm Suture - [id number]: 79-87-7484Xxrqv Sugar Diagnostic (Onetouch Ultra Test) strip Start: 09-56-3212Vpmmy Sugar Diagnostic (Onetouch Ultra Test) stripStart: 53-74-0118Cjrde Sugar Diagnostic (Onetouch Ultra Test) stripStart: 02-05-2025 Blood Sugar Diagnostic (Onetouch Ultra Test) stripStart: 02-05-2025 Goals DatePatient GoalDesired Activity/State Functional Status BvicUkgqiivaavKebvakBcqlynlk97-02-4716Setgmdjtrx StatusMer[facility] Notes 03-22-2022 to 09-03-2025 Note Date & LcmdSencGjyakptb35-55-6459 NoteHNO ID: [id number] Author: SEAN MATA DPM Service: ? Author Type: Physician Type: Progress Notes Filed: 09/03/2025 08:56 Note Text: PRIMARY SERVICE: [facility] Podiatry SUBJECTIVE: Patient is seen today [...] tablet by mouth once daily. 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 DEXCOM G7 SENSOR [...] of SERVICE: 09/03/2025 TIME of SERVICE: 8:52 [facility]07-19-2025 Evaluation note* Diagnosis Onset Date Resolution Status Admit Date Chest pain acuteJuly 2024 1:59amDiabetes mellitusacuteJuly 2024 1:59am [facility] Work Phone: 1(675) 997-174907-19-2025 Evaluation note* Diagnosis Onset Date Resolution Status Admit Date Diabetes mellitus acuteJuly 2024 1:59amChest painresolvedJuly 2024 1:59am [facility] Work Phone: 1(345) 546-507407-15-2025 NoteHNO ID: [id number] Author: SEAN MATA DPM Service: ? Author Type: Physician Type: Progress Notes Filed: 06/11/2025 10:13 Note Text: PRIMARY SERVICE: [facility] Podiatry 9:48 AM through 10:18 AM [...] tablet by mouth once daily. 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 DEXCOM G7 SENSOR [...] the deltoid and spring ligaments as described. Seat Builder: PSCB Transcribe Date/Time: Jun 06 2025 11:37A Dictated by : RADHA TYSON MD This examination was interpreted and the report reviewed and electronically signed by: KATIANA FLORES MD on Jun 06 2025 2:13PM EST Results-Findings * * *Final Report* * * DATE OF EXAM: Jun 06 2025 8:43AM [facility] 0164 - MRI ANKLE WO IVCON [...] tibiofibular ligament: I (more content not included)... [facility]07-15-2025 History of Present illness Narrative* Sean Mata DPM - 06/11/2025 10:08 AM EDT Images from the original note were not included. PRIMARY SERVICE: [facility] Podiatry 9:48 AM through 10:18 AM [...] tablet by mouth once daily. 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 DEXCOM G7 SENSOR [...] the deltoid and spring ligaments as described. Seat Builder: PSCB Transcribe Date/Time: Jun 06 2025 11:37A Dictated by : RADHA TYSON MD This examination was interpreted and the report reviewed and electronically signed by: KATIANA FLORES MD on Jun 06 2025 2:13PM EST Results-Findings * * *Final Report* * * DATE OF EXAM: Jun 06 2025 8:43AM [facility] 0164 - MRI ANKLE WO IVCON [...] History MRI ANKLE WO IVCON RIGHT (Order #[id number]) on 06/06/2025 - Order Result History Report [...] of SERVICE: 10:08 AM documented in this encounterParkwood Hospital07-10-2025 History of Present illness Narrative* Mary [...] PATIENT PRESENTS WITH AN IMPLANTABLE OR ATTACHED MARKETING TRAINEE: Yes [facility] RADIOLOGY DEPARTMENT: MR; Exam(s) Completed: Lower MSK: Ankle/Hind Foot, right . Aromatherapy Administered: No PERIPHERAL IV DATA: Not applicable SIGNED BY: MARIBELL Lomax) June 06, 2025 8:17 AM documented in this encounterParkwood Hospital07-10-2025 NoteHNO ID: [id number] Author: MARY ALVAREZ RT(R) Service: ? Author [...] PATIENT PRESENTS WITH AN IMPLANTABLE OR ATTACHED MARKETING TRAINEE: Yes [facility] RADIOLOGY DEPARTMENT: MR; Exam(s) Completed: Lower MSK: Ankle/Hind Foot, right . Aromatherapy Administered: No PERIPHERAL IV DATA: Not applicable SIGNED BY: RT Dami(R) June 06, 2025 8:17 [facility]06-20-2025 Telephone encounter Note* Telephone Encounter - Natalia Barrios CT - 05/17/2025 12:00 PM EDT Patients boot in no longer inflating or button is broken. Her mother will be coming in this way next week. She will bring the boot to change it out. Patient lives in [place]. [facility]06-20-20[facility] Miscellaneous Notes* Telephone Encounter - Natalia Barrios CT - 05/17/2025 12:00 PM EDT Patients boot in no longer inflating or button is broken. Her mother will be coming in this way next week. She will bring the boot to change it out. [place]. documented in this encounterParkwood Hospital06-19-2025 NoteHNO ID: [id number] Author: BEVERLY DOBSON Cast Tech Service: ? Author Type: Hearing Aid Assembly Supervisor Type: Progress Notes Filed: 05/16/2025 15:24 Note Text: Patient in today for scheduled appointment. Cast removed. Right leg cleansed with Wound wash, sea-clens and debrisoft. Examined by Dr. Mata. Patient to go int a boot she has at home. Beverly Dobson [facility]06-19-2025 History of Present illness Narrative* Beverly Dobson Cast Kerri - 05/16/2025 3:23 PM EDT Patient in today for scheduled appointment. Cast removed. Right leg cleansed with Wound wash, sea-clens and debrisoft. Examined by Dr. Mata. Patient to go int a boot she has at home. Beverly Dobson, CT documented in this encounterParkwood Hospital06-19-2025 NoteHNO ID: [id number] Author: SEAN MATA DPM Service: ? Author Type: Physician Type: Progress Notes Filed: 05/16/2025 14:44 Note Text: Medical intake sheet from May 16, 2025 , was updated by patient, reviewed, and was made part of the patient's chart. Sean Mata DPM PRIMARY SERVICE: [facility] Podiatry SUBJECTIVE: Patient is seen today [...] tablet by mouth once daily. 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 DEXCOM G7 SENSOR [...] and further discuss treatment options SIGNATURE: GURU WardTriHealth McCull[facility]06-19-20[facility] History of Present illness Narrative* Sean Mata DPM - 05/16/2025 2:41 PM EDT Medical intake sheet from May 16, 2025 , was updated by patient, reviewed, and was made part of the patient's chart. Sean Mata DPM PRIMARY SERVICE: [facility] Podiatry SUBJECTIVE: Patient is seen today [...] tablet by mouth once daily. 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 DEXCOM G7 SENSOR [...] SIGNATURE: Sean Mata DPM documented in this encounterParkwood Hospital06-09-2025 NoteHNO ID: [id number] Author: BEVERLY DOBSON Cast Tech Service: ? Author Type: Hearing Aid Assembly Supervisor Type: Progress Notes Filed: 05/06/2025 16:02 Note [...] doctor during next scheduled appointment/prn. Beverly Dobson [facility]06-09-2025 History of Present illness Narrative* Beverly [...] appointment/prn. Beverly Dobson, CT documented in this encounterParkwood Hospital06-06-2025 Telephone encounter Note * Telephone Encounter - Staci Powers - 05/03/2025 2:59 PM EDT Patient called the office to schedule a cast change as suggested by Lashon. No order placed, unfortunately due to the time restraints we had to schedule for Tuesday. [facility]06-06-2025 Miscellaneous Notes* Telephone Encounter - Staci Powers - 05/03/2025 2:59 PM EDT Patient called the office to schedule a cast change as suggested by Lashon. No order placed, unfortunately due to the time restraints we had to schedule for Tuesday. documented in this encounterParkwood Hospital05-29-2025 NoteHNO ID: [id number] Author: BEVERLY DOBSON Cast Tech Service: ? Author Type: Hearing Aid Assembly Supervisor Type: Progress Notes Filed: 04/25/2025 15:14 Note Text: Applied A Short Leg Weightbearing Cast to the right leg. Instructions on cast care given. A medium Cast Shoe was dispensed. Will f/u as scheduled/prn. MEE JohnsonTriHealth McCullough-Hyde [facility]05-29-2025 History of Present illness Narrative* Beverly Dobson Cast Tech - 04/25/2025 3:13 PM EDT Applied A Short Leg Weightbearing Cast to the right leg. Instructions on cast care given. A medium Cast Shoe was dispensed. Will f/u as scheduled/prn. HAYES Johnson documented in this encounterParkwood Hospital05-29-2025 NoteHNO ID: [id number] Author: SEAN MATA DPM Service: ? Author Type: Physician Type: Progress Notes Filed: 04/25/2025 14:38 Note Text: PRIMARY SERVICE: [facility] Podiatry SUBJECTIVE: Patient is seen today [...] by mouth once daily. - DEXCOM G7 OPERATING ROOM TECHNICIAN misc as directed. - DEXCOM G7 [...] these instructions. Informed Consent Consent Obtained: Verbal [place] Protocol A moment to CARE was completed. [...] of SERVICE: 04/25/2025 TIME of SERVICE: 2:09 [facility]05-29-2025 History of Present illness Narrative* Sean Mata DPM - 04/25/2025 2:09 PM EDT Associated Order(s): Additional Injections: R subtalar joint Post-Procedure Diagnose(s): Sinus tarsitis, right Images from the original note were not included. PRIMARY SERVICE: [facility] Podiatry SUBJECTIVE: Patient is seen today [...] tablet by mouth once daily. 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 DEXCOM G7 SENSOR [...] these instructions. Informed Consent Consent Obtained: Verbal [place] Protocol A moment to CARE was completed. [...] of SERVICE: 2:09 PM documented in this encounterParkwood Hospital05-20-2025 NoteHNO ID: [id number] Author: SEAN MATA DPM Service: ? Author Type: Physician Type: Progress Notes Filed: 04/16/2025 14:48 Note Text: PRIMARY SERVICE: [facility] Podiatry Virtual visit with Zoom: 2:15 [...] tablet by mouth once daily. 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 DEXCOM G7 SENSOR [...] week for evaluation. Explained I really cannot white washer what is going on without examining her clinically to determine the best plan of care. Continue icing and oral ibuprofen in the meantime along with the return to her Aircast cam walker boot. SIGNATURE: Sean Mata DPM DATE of SERVICE: 04/16/2025 TIME of SERVICE: 2:42 [facility]04-24-2025 History of Present illness Narrative* Pato Avelar, SHITAL - 03/21/2025 2:20 PM EDT Patient: Noel Abadphilip : 1990 PCP: Erich Garcia MD SUBJECTIVE This is a 34 y.o. female that presents today s/p right revisional modified Kidner right foot [facility]. Pt denies n/f/v/c and has [...] Diagnosis Date Diabetes ([facility]) Ear problems GERD (gastroesophageal reflux [...] 2 diabetes mellitus without complication, 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 PLAN Continue with physical therapy Patient to return to orthotics Patient to continue with oral anti - inflammatories as needed for pain and recommended OTC medications such as tylenol or Ibuprofen Pato Avelar DPM documented in this encounterFreeman Neosho HospitalTsphxgrywe19-36-0511 NoteHNO ID: [id number] Author: NATALIA BARRIOS CT Service: ? Author Type: Clinical Hearing Aid Assembly Supervisor Type: Progress Notes Filed: 03/14/2025 16:37 Note Text: Dispensed size Medium ASO to right foot.[facility]04-17-2025 History of Present illness Narrative* Natalia Barrios CT - 03/14/2025 4:37 PM EDT Dispensed size Medium ASO to right foot. * Sean Mata DPM - 03/14/2025 3:41 PM EDT PRIMARY SERVICE: [facility] Podiatry SUBJECTIVE: Patient is seen today [...] needed for up to 10days. 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 DEXCOM G7 SENSOR [...] SIGNATURE: Sean Mata DPM documented in this encounterParkwood Hospital04-17-2025 NoteHNO ID: [id number] Author: SEAN MATA DPM Service: ? Author Type: Physician Type: Progress Notes Filed: 03/14/2025 16:01 Note Text: PRIMARY SERVICE: [facility] Podiatry SUBJECTIVE: Patient is seen today [...] for up to 10 days. 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 DEXCOM G7 SENSOR [...] ASO ankle brace today SIGNATURE: Sean Mata [facility]04-17-2025 Note HNO ID: [id number] Author: JOYA DUBOIS RT(Misha) Service: ? Author [...] PATIENT PRESENTS WITH AN IMPLANTABLE OR ATTACHED MARKETING TRAINEE: No RADIOLOGY DEPARTMENT: General X-ray: Exam(s) Completed: Lower Extremity X-Ray(s): Foot, Right and Wt. Bearing PERIPHERAL IV DATA: Not applicable SIGNED BY: RT Ezequiel(Misha) March 14, 2025 3:32 [facility]04-17-2025 History of Present illness Narrative* Joya [...] PATIENT PRESENTS WITH AN IMPLANTABLE OR ATTACHED MARKETING TRAINEE: No RADIOLOGY DEPARTMENT: General X-ray: Exam(s) Completed: Lower Extremity X- Ray(s): Foot, Right and Wt. Bearing PERIPHERAL IV DATA: Not applicable SIGNED BY: RT Ezequiel(Misha) March 14, 2025 3:32 PM documented in this encounterParkwood Hospital04-10-2025 History of Present illness Narrative* Pato Avelar DPM - 03/07/2025 9:00 AM EDT Patient: Noel Paul : 1990 PCP: Erich Garcia MD SUBJECTIVE This is a 34 y.o. female that presents today s/p right revisional modified Kidner right foot by Dr [facility]. Pt denies n/f/v/c and has [...] pack Pato Avelar DPM documented in this encounterFreeman Neosho [id number] Telephone encounter Note* Telephone Encounter - Chris Bhatt OCCA - 02/20/2025 4:21 PM EDT Called and informed staff she may being partial weight bearing. [facility]03-26-2025 Miscellaneous Notes* Telephone Encounter - Chris Bhatt OCCA - 02/20/2025 4:21 PM EDT Called and informed staff she may being partial weight bearing. * Telephone Encounter - Marva Bhardwaj - 02/20/2025 4:06 PM EDT Bonilla from [facility] PT Dept is calling Sean Mata DPM today to request weightbearing guide lines for patient PT CB [phone] ext [phone] FAX [phone] Patient has been identified by name and birthdate. Duration of symptoms: N/A Person calling: caregiver: Call patient at: [phone] (home) [phone] (cell) Was an appointment scheduled: No Closing statement: Results or non-symptom based questions: Thank you for calling [facility], your call will be returned within the next business day. Marva Almeida documented in this encounterParkwood Hospital03-26-2025 Telephone encounter Note * Telephone Encounter - Marva Bhardwaj - 02/20/2025 4:06 PM EDT Bonilla from [facility] PT Dept is calling Sean Mata DPM today to request weightbearing guide lines for patient PT CB [phone] ext [phone] FAX [phone] Patient has been identified by name and birthdate. Duration of symptoms: N/A Person calling: caregiver: Call patient at: [phone] (home) [phone] (cell) Was an appointment scheduled: No Closing statement: Results or non-symptom based questions: Thank you for calling [facility], your call will be returned within the next business day. Marva Almeida [facility]03-19-2025 NoteHNO ID: [id number] Author: BEVERLY DOBSON Cast Tech Service: ? Author Type: Hearing Aid Assembly Supervisor Type: Progress Notes Filed: 02/13/2025 10:15 Note Text: Patient in today for scheduled appointment. Cast removed. Right leg cleansed with Cavilon. Examined by Dr. Mata. Fitted with a medium Short Pneumatic Walker for the right leg. Instructions on application, adjustments and care given. Will f/u as scheduled/prn. Beverly Dobson [facility]03-19-2025 History of Present illness Narrative* Beverly Dobson Cast Tech - 02/13/2025 10:14 AM EDT Patient in today for scheduled appointment. Cast removed. Right leg cleansed with Cavilon. Examinedby Dr. Mata. Fitted with a medium Short Pneumatic Walker for the right leg. Instructions on application, adjustments and care given. Will f/u as scheduled/prn. HAYES Johnson documented in this encounterParkwood Hospital03-19-2025 NoteHNO ID: [id number] Author: SEAN MATA DPM Service: ? Author Type: Physician Type: Progress Notes Filed: 02/13/2025 10:05 Note Text: PRIMARY SERVICE: [facility] Podiat[facility] SUBJECTIVE: Patient is seen today [...] up to 10 days. - DEXCOM G7 OPERATING ROOM TECHNICIAN misc as directed. - DEXCOM G7 [...] was made part of the patient's chart. [facility] History of Present illness Narrative* Sean Mata DPM - 02/13/2025 9:44 AM EDT PRIMARY SERVICE: [facility] Podiatry SUBJECTIVE: Patient is seen today [...] needed for up to 10days. 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 DEXCOM G7 SENSOR [...] chart. Sean Mata DPM documented in this encounterParkwood Hospital03-19-2025 NoteHNO ID: [id number] Author: MAURA SHELL RT(Misha) Service: ? Author [...] PATIENT PRESENTS WITH AN IMPLANTABLE OR ATTACHED MARKETING TRAINEE: No RADIOLOGY DEPARTMENT: General X-ray: Exam(s) Completed: Lower Extremity X-Ray(s): Foot, Right PERIPHERAL IV DATA: Not applicable SIGNED BY: RT Rickie(Misha) February 13, 2025 9:23 [facility]03-19-2025 History of Present illness Narrative* Maura [...] PATIENT PRESENTS WITH AN IMPLANTABLE OR ATTACHED MARKETING TRAINEE: No RADIOLOGY DEPARTMENT: General X-ray: Exam(s) Completed: Lower Extremity X- Ray(s): Foot, Right PERIPHERAL IV DATA: Not applicable SIGNED BY: RT Rickie(R) February 13, 2025 9:23 AM documented in this encounterParkwood Hospital02-26-2025 Note* Addendum Note - Natalia Barrios CT - 01/23/2025 12:18 PM ESTAddended by: NATALIA BARRIOS on: 01/23/2025 12:18 PM Modules accepted: Orders [facility]02-26-2025 Miscellaneous Notes* Addendum Note - Natalia Barrios CT - 01/23/2025 12:18 PM ESTAddended by: NATALIA BARRIOS on: 01/23/2025 12:18 PM Modules accepted: Orders documented in this encounterParkwood Hospital02-26-2025 NoteHNO ID: [id number] Author: BEVERLY DOBSON Cast Tech Service: ? Author Type: Hearing Aid Assembly Supervisor Type: Progress Notes Filed: 01/23/2025 11:52 Note Text: Patient in today for scheduled appointment. Cast removed. Right leg cleansed with sea-clens. Examined by Dr. Mata. Applied A Short Leg Nonweightbearing Cast to the right leg. Instructions on cast care given. Will f/u as scheduled/prn. Beverly Dobson [facility]02-26-2025 History of Present illness Narrative* Beverly Dobson Cast Tech - 01/23/2025 11:51 AM EST Patient in today for scheduled appointment. Cast removed. Right leg cleansed with sea-clens. Examined by Dr. Mata. Applied A Short Leg Nonweightbearing Cast to the right leg. Instructions on cast care given. Will f/u as scheduled/prn. HAYES Johnson documented in this encounterParkwood Hospital02-26-2025 NoteHNO ID: [id number] Author: SEAN MATA DPM Service: ? Author Type: Physician Type: Progress Notes Filed: 01/23/2025 11:47 Note Text: PRIMARY SERVICE: [facility] Podiat[facility] SUBJECTIVE: Patient is seen today [...] for up to 10 days. 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 DEXCOM G7 SENSOR [...] and refer to physical therapy. SIGNATURE: [facility]26[facility] History of Present illness Narrative* Sean Mata DPM - 01/23/2025 10:56 AM EST PRIMARY SERVICE: [facility] Podiatry SUBJECTIVE: Patient is seen today [...] needed for up to 10days. 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 DEXCOM G7 SENSOR [...] SIGNATURE: Sean Mata DPM documented in this encounterParkwood Hospital02-12-2025 NoteHNO ID: [id number] Author: SHAYLEE CONCEPCION MA Service: ? Author Type: Black Leather Trimmer Type: Progress Notes Filed: 01/09/2025 11:22 Note [...] will follow up as scheduled or as needed.[facility]02-12-2025 History of Present illness Narrative* Shaylee [...] scheduled or as needed. documented in this encounterParkwood Hospital02-12-2025 NoteHNO ID: [id number] Author: SEAN MATA DPM Service: ? Author Type: Physician Type: Progress Notes Filed: 01/09/2025 10:55 Note Text: PRIMARY SERVICE: [facility] Podiatry SUBJECTIVE: Patient is seen today [...] for up to 10 days. 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 DEXCOM G7 SENSOR [...] of SERVICE: 01/09/2025 TIME of SERVICE: 10:52 [facility]02-12-2025 History of Present illness Narrative* Sean Mata, DPM - 01/09/2025 10:52 AM EST Images from the original note were not included. PRIMARY SERVICE: [facility] Podiatry SUBJECTIVE: Patient is seen today [...] needed for up to 10days. 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 DEXCOM G7 SENSOR [...] of SERVICE: 10:52 AM documented in this encounterParkwood Hospital02-05-2025 Telephone encounter Note * Telephone Encounter - Sean Mata DPM - 01/02/2025 12:36 PM EST Called patient at [phone] to return call regarding pain management. I spoke with the patient. Advised I sent a prescription over for her electronically for Toradol 10 mg tablets take 2 right away the 1 every 6 hours with food until gone in addition to the Percocet and the Phenergan. Recommend 2 Percocet every 4-6 hours due to her BMI. Sean Mata DPM [facility]02-05-2025 Miscellaneous Notes* Telephone Encounter - Sean Mata DPM - 01/02/2025 12:36 PM EST Called patient at [phone] to return call regarding pain management. I spoke with the patient. Advised I sent a prescription over for her electronically for Toradol 10 mg tablets take 2 right away the 1 every 6 hours with food until gone in addition to the Percocet and the Phenergan. Recommend 2 Percocet every 4-6 hours due to her BMI. Sean Mata DPM documented in this encounterParkwood Hospital02-03-2025 Miscellaneous Notes* Telephone Encounter - Sean Mata DPM - 12/31/2024 8:26 PM EST Called patient at her Lonnie's cell number at [phone] to check on postop progress. Received voicemail. [...] calling: self Call patient at: at home [phone] (home) [phone] (cell) Was an appointment scheduled: No Closing statement: Results or non-symptom based questions: Thank you for [facility], your call will be returned within the next business day. Marva Almeida documented in this encounterParkwood Hospital02-03-2025 Telephone encounter Note * Telephone Encounter - Sean Mata DPM - 12/31/2024 8:26 PM EST Called patient at her Lonnie's cell number at [phone] to check on postop progress. Received voicemail. Left message that I called. Called patient back at 8:41 PM to same number. Spoke with who said she was doing well without any significant pain or problems at this time. Advised to call if any questions or problems between now and her first scheduled postop visit on December. Sean Mata DPM [facility] Work Phone: 1(737) 105-788702-03-2025 Telephone encounter Note* Telephone Encounter - Karissa Raman MA - 12/31/2024 3:25 PM EST Message has been sent directly to Dr Mata's phone. [facility]02-03-2025 Telephone encounter Note* Telephone Encounter - [...] calling: self Call patient at: at home [phone] (home) [phone] (cell) Was an appointment scheduled: No Closing statement: Results or non-symptom based questions: Thank you for calling [facility], your call will be returned within the next business day. Marva Almeida [facility]02-03-2025 NoteHNO ID: [id number] Author: ESTELLA GIBBONS AA Service: Anesthesiology Author Type: Structural Engineering Project Manager Type: Anesthesia Procedure Notes Filed: 12/31/2024 09:57 [...] December 31, 2024 TIME: 9:57 AM CSN: [id number] Hospital02-03-2025 NoteHNO ID: [id number] Author: ESTELLA GIBBONS AA Service: Anesthesiology Author Type: Structural Engineering Project Manager Type: Anesthesia Procedure Notes Filed: 12/31/2024 08:20 [...] December 31, 2024 TIME: 8:18 AM CSN: [id number] Hospital01-31-2025 History and physical note* Ary Rocha APRN.IRENE - 12/28/2024 10:10 AM EST Images from the original note were not included. [place] [facility] HISTORY AND PHYSICAL EXAMINATION SERVICE DATE: 12/28/2024 SERVICE TIME: 10:08 AM PRIMARY CARE PHYSICIAN: Monique Emmanuel, IRENE, BULLET SWAGING MACHINE ADJUSTER REASON FOR VISIT: Noel Paul is a [...] STOP-Bang Score: STOP-Bang Score: 0 (Awaiting CPAP) [id number] Score: Age: <65 Sex: female [id number] Score: ARISCAT Score: Age: <=50 Preoperative SpO2: [...] chart review and guidance on proceeding at [place]. Per Stephanie, patient may proceed as scheduled at [place] CONSULTS: Anesthesia Consult chart review The Following [...] AT BEDTIME NEEDED Taking Yes DEXCOM G7 OPERATING ROOM TECHNICIAN misc as directed. DEXCOM G7 SENSOR [...] fevers. Neuro: No history of TIA's, stroke, MORTGAGE UNDERWRITER tumor, impaired sensorium, hemiplegia, paraplegia or quadraplegia. No neurological symptoms or problems. Respiratory: No history of current cough or dyspnea, or pneumonia in the past 6 weeks. No history of respiratory/pulmonary symptoms or problems. Cardiovascular: No history of HTN requiring medication, no history of angina, CHF, SC, cardiac surgery or stents. Denies rest pain, [...] voices comprehension and compliance. SIGNATURE: Ary Rocha APRN.BULLET SWAGING MACHINE ADJUSTER PATIENT NAME: Noel Paul DATE: 12/28/2024 TIME: 10:21 AM [facility]01-31-2025 History and physical note* Ary Rocha APRN.CNP - 12/28/2024 10:10 AM EST Images from the original note were not included. [place] [facility] HISTORY AND PHYSICAL EXAMINATION SERVICE DATE: 12/28/2024 SERVICE TIME: 10:08 AM PRIMARY CARE PHYSICIAN: Monique Emmanuel CNP, BULLET SWAGING MACHINE ADJUSTER REASON FOR VISIT: Noel Paul is a [...] STOP-Bang Score: STOP-Bang Score: 0 (Awaiting CPAP) [id number] Score: Age: <65 Sex: female [id number] Score: ARISCAT Score: Age: <=50 Preoperative SpO2: [...] chart review and guidance on proceeding at [place]. Per Stephanie, patient may proceed as scheduled at [place] CONSULTS: Anesthesia Consult chart review The Following [...] AT BEDTIME NEEDED Taking Yes DEXCOM G7 OPERATING ROOM TECHNICIAN misc as directed. DEXCOM G7 SENSOR [...] fevers. Neuro: No history of TIA's, stroke, MORTGAGE UNDERWRITER tumor, impaired sensorium, hemiplegia, paraplegia or quadraplegia. No neurological symptoms or problems. Respiratory: No history of current cough or dyspnea, or pneumonia in the past 6 weeks. No history of respiratory/pulmonary symptoms or problems. Cardiovascular: No history of HTN requiring medication, no history of angina, CHF, SC, cardiac surgery or stents. Denies rest pain, [...] voices comprehension and compliance. SIGNATURE: Ary Rocha APRN.BULLET SWAGING MACHINE ADJUSTER PATIENT NAME: Noel Paul DATE: 12/28/2024 TIME: 10:21 AM documented in this encounterParkwood Hospital01-29-2025 Instructions* Patient Instructions* Ary Rocha APRN.CNP - 12/26/2024 7:49 AM EST Images from the original note were not included. [facility] PATIENT PREOPERATIVE INSTRUCTIONS Sean Mata,* has scheduled you for your procedure at this surgery center: [facility]: [phone] --[address], [facility] [facility] [address]. Please read below carefully for your personalized [...] office. If you are currently using a [id number]-[id number] injectable or oral medication for diabetes or [...] Procedures: - YOU MUST HAVE A RESPONSIBLE FORKLIFT DRIVER TAKE YOU HOME. A TEAM SPORTS SALES ASSOCIATE OR ETHANOL OPERATOR CANNOT BE MADE A RESPONSIBLE FORKLIFT DRIVER. - We recommend that a responsible person [...] Advance Directive, please fax a copy to [phone] or email to for it to be [...] your chart that day. 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 documented in this encounterParkwood Hospital01-15-2025 NoteHNO ID: [id number] Author: SEAN MATA DPM Service: ? Author Type: Physician Type: Progress Notes Filed: 12/12/2024 10:46 Note Text: [facility] Department of Orthopedics [facility] Orthopedic Surgery Name: Noel Paul Date [...] Current Outpatient Medications Medication Sig DEXCOM G7 OPERATING ROOM TECHNICIAN misc as directed. DEXCOM G7 SENSOR [...] to proceed. We will complete scheduling. [facility]01-15-2025 History of Present illness Narrative* Sean Mata DPM - 12/12/2024 10:39 AM EST [facility] Department of Orthopedics [facility] Orthopedic Surgery Name: Noel Paul Date [...] Current Outpatient Medications Medication Sig DEXCOM G7 OPERATING ROOM TECHNICIAN misc as directed. DEXCOM G7 SENSOR [...] scheduling. Sean Mata DPM documented in this encounterParkwood Hospital01-15-2025 NoteHNO ID: [id number] Author: JAMAL REYNOSO RT(Misha) Service: ? Author [...] PATIENT PRESENTS WITH AN IMPLANTABLE OR ATTACHED MARKETING TRAINEE: No RADIOLOGY DEPARTMENT: General X-ray: Exam(s) Completed: Lower Extremity X-Ray(s): Foot, Right PERIPHERAL IV DATA: Not applicable SIGNED BY: RT Manju(R) December 12, 2024 9:29 [facility]01-15-2025 History of Present illness Narrative* Jamal [...] PATIENT PRESENTS WITH AN IMPLANTABLE OR ATTACHED MARKETING TRAINEE: No RADIOLOGY DEPARTMENT: General X-ray: Exam(s) Completed: Lower Extremity X- Ray(s): Foot, Right PERIPHERAL IV DATA: Not applicable SIGNED BY: RT Manju(R) December 12, 2024 9:29 AM documented in this encounterParkwood Hospital12-30-2024 NoteOrthopedic Surgery Subjective Pain of the [...] today as a referral from her previous freezing machine operator for assistance with continued pain over the [...] from me. Kat Her MD Orthopedic Surgery, Tower Excavator Operator [facility] 11/26/2024[facility]11-27-2024 History of Present illness Narrative* Pato [...] today for follow-up of MRI results at [facility]. Allergies: Allergies Allergen Reactions Sulfa Antibiotics Rash and Hives Past Medical History: Past Medical History: Diagnosis Date Diabetes ([facility]) Ear problems GERD (gastroesophageal reflux [...] 2 diabetes mellitus without complication, 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 Accessory navicular bone of right [...] need more invasive surgery. Will refer to [facility] Dr. Phoenix for referral and consultation at tertiary care center secondary to more advanced type procedure may be necessary. Will refer for consultation and possible further intervention Pato Avelar DPM documented in this encounterFreeman Neosho [id number] History of Present illness Narrative* Pato Avelar [...] Diagnosis Date Diabetes ([facility]) Ear problems GERD (gastroesophageal reflux [...] right Pato Avelar DPM documented in this encounterFreeman Neosho HospitalHkncxxbxkp22-93-1590 History of Present illness Narrative* Pato Avelar [...] diagnosis. Pato Avelar DPM documented in this [facility]10-11-2024 Telephone encounter Note* Telephone Encounter - Pato Avelar DPM - 09/07/2024 8:26 AM EDT Has been called for possible increase in pain medication and will switch from hydrocodone to oxycodone and sent to [facility] and [place] [facility]osho [id number] Miscellaneous Notes* Telephone Encounter - Pato Avelar DPM - 09/07/2024 8:26 AM EDT Has been called for possible increase in pain medication and will switch from hydrocodone to oxycodone and sent to [facility] documented in this [facility]10-03-2024 History of Present illness Narrative* Pato [...] Diagnosis Date Diabetes ([facility]) Ear problems GERD (gastroesophageal reflux [...] cool tibia to toes b/l NEURO: 5.07 [place] Deyanira monofilament test positive to digits and [...] 2 diabetes mellitus without complication, unspecified whether nursing home insulin use ([facility]) 3. Heel spur, left 4. [...] risks, alternatives, benefits, post op complications and nursing home expectations were discussed including but not limited to: infection,bone infection,wound dehiscence hardware failure and irritation,wound dehiscence,delay union/mal union/non union of bone. RSDS,neuroma,duty limitations,DVT/PE, SC,nerve damage, scar, loss of sensation, swelling. Pt [...] 2024 Pato Avelar DPM documented in this encounterFreeman Neosho [id number] History of Present illness Narrative* Pato Avelar [...] Diagnosis Date Diabetes ([facility]) Ear problems GERD (gastroesophageal reflux [...] 2 diabetes mellitus without complication, unspecified whether nursing home insulin use ([facility]) PLAN Patient to continue with oral [...] Patient may continue with conservative treatments including exif-gcp-jyeshrj anti- inflammatories and other treatments suggested today. Patient may want to be s cheduled for surgical intervention in the near future. Patient had a right modified Kidner procedure to the right foot with removal of accessory navicular with postoperative pain medicine of [place] and will see family Lien for preop clearance. This condition is unrelated to prior condition Pato Avelar DPM documented in this encounterFreeman Neosho [id number] Telephone encounter Note* Telephone Encounter - GIOVANI MURRY - 07/31/2024 12:54 PM EDT Pt called back, would like scanned at next appt [facility] [id number] Miscellaneous Notes* Telephone Encounter - GIOVANI MURRY - 07/31/2024 12:54 PM EDT Pt called back, would like scanned at next appt * Telephone Encounter - GIOVANI MURRY - 07/31/2024 12:42 PM EDT Left vm to go over benefits * Telephone Encounter - Marti Murry MA - 07/27/2024 10:44 AM EDT Per call to Elda CHILDRESS @ [phone] with Denise Marroquin - I verified the policy is current and active with an effective date of 11/28/2020. L3020 is covered at 100% as both the ded and oop have been met. There are no frequency limits, no exclusions, and no prior authorizations needed. Ref#: [id number]. * Telephone Encounter - Pato Avelar DPM - 07/19/2024 4:56 PM EDT Please precertify for custom orthotics for the diagnosis of Posterior tibial tendinitis bilaterally documented in this encounterFreeman Neosho [id number] Telephone encounter Note* Telephone Encounter - GIOVANI MURRY - 07/31/2024 12:42 PM EDT Left vm to go over benefits [facility] [id number] Telephone encounter Note* Telephone Encounter - Marti Murry MA - 07/27/2024 10:44 AM EDT Per call to Elda CHILDRESS @ [phone] with Denise Marroquin - I verified the policy is current and active with an effective date of 11/28/2020. L3020 is covered at 100% as both the ded and oop have been met. There are no frequency limits, no exclusions, and no prior authorizations needed. Ref#: [id number]. [facility] HospitalXjfinkfmzb63-28-3021 History of Present illness Narrative* Jaime Woods [...] the next 7-10 days. Patient will use juil-jof-nvmcjvy ibuprofen 3 times a day with food to help decrease inflammation. The patient may also benefit from a mouth guard. We will consider referral to Dr. Adali SALAZAR if there is no improvement documented in this encounterFreeman Neosho [id number] Telephone encounter Note* Telephone Encounter - Pato Avelar DPM - 07/19/2024 4:56 PM EDT Please precertify for custom orthotics for the diagnosis of Posterior tibial tendinitis bilaterally [facility] [id number] History of Present illness Narrative* Pato Avelar DPM - 07/19/2024 4:10 PM EDT Patient: Noel Paul : 1990 PCP: [facility] Provider MD Milad SUBJECTIVE This is [...] Diagnosis Date Diabetes ([facility]) Medications: Current Outpatient Medications: cholecalciferol (Vitamin [...] 2 diabetes mellitus without complication, 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 Accessory navicular bone of right [...] treatments Pato Avelar DPM documented in this encounterFreeman Neosho [id number] Evaluation note* Encounter Date Diagnosis Assessment Notes [...] no improvement in 5 to 7 days. 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 Type 2 diabetes mellitus without complication, unspecified whether nursing home insulin use (CMS/HCC) Heel spur, left Plantar fasciitis Plantar fascial fibromatosis Contracture of left ankle Contracture of right ankle [facility]* Diagnosis 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 documented in this encounter [facility]* Diagnosis 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 Contracture of right ankle Type 2 diabetes mellitus without complication, 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 (CMS/HCC) documented in this encounter [facility]* Diagnosis 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 Contracture of right ankle documented in this encounter [facility]* Diagnosis 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 Contracture of right ankle Stress fracture of right foot, initial encounter documented in this encounter [facility]* Diagnosis Stress fracture of right foot, initial encounter- Primary Type 2 diabetes mellitus without complication, unspecified whether nursing home insulin use (CMS/HCC) Accessory navicular bone of right foot documented in this encounter [facility]* Diagnosis Posterior tibial tendonitis of right leg- Primary Accessory navicular bone of left foot Type 2 diabetes mellitus without complication, unspecified whether nursing home insulin use (CMS/HCC) Accessory navicular bone of right foot documented in this encounter [facility]* Diagnosis Arthralgia of left temporomandibular joint- Primary Left ear pain Unspecified otalgia Chronic rhinitis Fullness in ear, left documented in this encounter [facility]* Diagnosis 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 Posterior tibial tendonitis of right leg Type 2 diabetes mellitus without complication, 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 (CMS/HCC) documented in this encounter [facility]* Diagnosis Accessory navicular bone of left foot- Primary documented in this encounter [facility]* Diagnosis Pain in right foot- Primary Pain in limb Accessory navicular bone of right foot [facility] Pain Generalized pain [facility] Diagnosis 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 [facility]* Diagnosis Pre-op evaluation- Primary Preoperative [...] 10:05 AM ESTAssociated Problem(s): BMI 60.0-69.9, adult ([facility]) Assessment: diet and exercise encouraged BMI 62 * Assessment & Plan Note - Ary Rocah APRN.CNP - 12/28/2024 10:05 AM ESTAssociated Problem(s): Diabetes mellitus without complication ([facility]) Assessment: managed with oral med, stable Follows up with PCP BG at home 120's HgbA1c 6.6% * Assessment & Plan Note - Ary Rocha APRN.CNP - 12/28/2024 10:04 AM ESTAssociated Problem(s): Acid reflux Assessment: managed with med, stable Follows up with PCP [facility]* Diagnosis Pain- Primary Generalized pain Pain Generalized pain Pre-op evaluation- Primary Preoperative examination, unspecified Gastroesophageal reflux disease, unspecified whether esophagitis present Diabetes mellitus without complication ([facility]) Type II or unspecified type diabetes mellitus without mention of complication, not stated as uncontrolled BMI 60.0-69.9, adult ([facility]) Body Mass Index 60.0-69.9, adult AQUILES (obstructive sleep apnea) Obstructive sleep apnea (adult) (pediatric) documented in this encounter [facility] note* Diagnosis Pre-op evaluation- Primary Preoperative examination, unspecified Gastroesophageal reflux disease, unspecified whether esophagitis present Diabetes mellitus without complication (HCC) Type II or unspecified type diabetes mellitus without mention of complication, not stated as uncontrolled BMI 60.0-69.9, adult ([facility]) Body Mass Index 60.0-69.9, adult AQUILES (obstructive sleep apnea) Obstructive sleep apnea (adult) (pediatric) S/P foot surgery, right- Primary Accessory navicular bone of right foot documented in this encounter [facility] note* Diagnosis Pre-op evaluation- Primary Preoperative examination, unspecified Gastroesophageal reflux disease, unspecified whether esophagitis present Diabetes mellitus without complication (HCC) Type II or unspecified type diabetes mellitus without mention of complication, not stated as uncontrolled BMI 60.0-69.9, adult ([facility]) Body Mass Index 60.0-69.9, adult AQUILES (obstructive sleep apnea) Obstructive sleep apnea (adult) (pediatric) S/P foot surgery, right- Primary documented in this encounter [facility] note* Diagnosis Pre-op evaluation- Primary Preoperative examination, unspecified Gastroesophageal reflux disease, unspecified whether esophagitis present Diabetes mellitus without complication (HCC) Type II or unspecified type diabetes mellitus without mention of complication, not stated as uncontrolled BMI 60.0-69.9, adult ([facility]) Body Mass Index 60.0-69.9, adult AQUILES (obstructive sleep apnea) Obstructive sleep apnea (adult) (pediatric) S/P foot surgery, right- Primary Accessory navicular bone of right foot documented in this encounter [facility] note* Diagnosis Pre-op evaluation- Primary Preoperative examination, unspecified Gastroesophageal reflux disease, unspecified whether esophagitis present Diabetes mellitus without complication (HCC) Type II or unspecified type diabetes mellitus without mention of complication, not stated as uncontrolled BMI 60.0-69.9, adult ([facility]) Body Mass Index 60.0-69.9, adult AQUILES (obstructive sleep apnea) Obstructive sleep apnea (adult) (pediatric) S/P foot surgery, right- Primary documented in this encounter [facility] note* Diagnosis Pre-op evaluation- Primary Preoperative examination, unspecified Gastroesophageal reflux disease, unspecified whether esophagitis present Diabetes mellitus without complication (HCC) Type II or unspecified type diabetes mellitus without mention of complication, not stated as uncontrolled BMI 60.0-69.9, adult ([facility]) Body Mass Index 60.0-69.9, adult AQUILES (obstructive sleep apnea) Obstructive sleep apnea (adult) (pediatric) S/P foot surgery, right- Primary S/P foot surgery, right documented in this encounter [facility] note* Diagnosis Pre-op evaluation- Primary Preoperative examination, unspecified Gastroesophageal reflux disease, unspecified whether esophagitis present Diabetes mellitus without complication (HCC) Type II or unspecified type diabetes mellitus without mention of complication, not stated as uncontrolled BMI 60.0-69.9, adult ([facility]) Body Mass Index 60.0-69.9, adult AQUILES (obstructive sleep apnea) Obstructive sleep apnea (adult) (pediatric) S/P foot surgery, right- Primary documented in this encounter [facility] note* Diagnosis Pre-op evaluation- Primary Preoperative examination, unspecified Gastroesophageal reflux disease, unspecified whether esophagitis present Diabetes mellitus without complication (HCC) Type II or unspecified type diabetes mellitus without mention of complication, not stated as uncontrolled BMI 60.0-69.9, adult ([facility]) Body Mass Index 60.0-69.9, adult AQUILES (obstructive sleep apnea) Obstructive sleep apnea (adult) (pediatric) S/P foot surgery, right documented in this encounter [facility] note* Diagnosis Capsulitis of metatarsophalangeal (MTP) joint of right foot- Primary documented in this encounter [facility] note* Diagnosis Pre-op evaluation- Primary Preoperative examination, unspecified Gastroesophageal reflux disease, unspecified whether esophagitis present Diabetes mellitus without complication (HCC) Type II or unspecified type diabetes mellitus without mention of complication, not stated as uncontrolled BMI 60.0-69.9, adult ([facility]) Body Mass Index 60.0-69.9, adult AQUILES (obstructive sleep apnea) Obstructive sleep apnea (adult) (pediatric) S/P foot surgery, right- Primary S/P foot surgery, right documented in this encounter [facility] note* Diagnosis Pre-op evaluation- Primary Preoperative examination, unspecified Gastroesophageal reflux disease, unspecified whether esophagitis present Diabetes mellitus without complication (HCC) Type II or unspecified type diabetes mellitus without mention of complication, not stated as uncontrolled BMI 60.0-69.9, adult (HCC) Body Mass Index 60.0-69.9, adult AQUILES (obstructive sleep apnea) Obstructive sleep apnea (adult) (pediatric) S/P foot surgery, right documented in this encounter [facility] note* Diagnosis Capsulitis of metatarsophalangeal (MTP) joint of right foot- Primary Type 2 diabetes mellitus without complication, unspecified whether nursing home insulin use documented in this encounter [facility] note* Diagnosis Pre-op evaluation- Primary Preoperative examination, unspecified Gastroesophageal reflux disease, unspecified whether esophagitis present Diabetes mellitus without complication (HCC) Type II or unspecified type diabetes mellitus without mention of complication, not stated as uncontrolled BMI 60.0-69.9, adult ([facility]) Body Mass Index 60.0-69.9, adult AQUILES (obstructive sleep apnea) Obstructive sleep apnea (adult) (pediatric) Sinus tarsitis, right- Primary documented in this encounter [facility] note* Diagnosis Pre-op evaluation- Primary Preoperative examination, unspecified Gastroesophageal reflux disease, unspecified whether esophagitis present Diabetes mellitus without complication (HCC) Type II or unspecified type diabetes mellitus without mention of complication, not stated as uncontrolled BMI 60.0-69.9, adult ([facility]) Body Mass Index 60.0-69.9, adult AQUILES (obstructive sleep apnea) Obstructive sleep apnea (adult) (pediatric) S/P foot surgery, right- Primary Chronic pain of right ankle documented in this encounter [facility] note* Diagnosis Pre-op evaluation- Primary Preoperative examination, unspecified Gastroesophageal reflux disease, unspecified whether esophagitis present Diabetes mellitus without complication (HCC) Type II or unspecified type diabetes mellitus without mention of complication, not stated as uncontrolled BMI 60.0-69.9, adult ([facility]) Body Mass Index 60.0-69.9, adult AQUILES (obstructive sleep apnea) Obstructive sleep apnea (adult) (pediatric) Chronic pain of right ankle documented in this encounter [facility] note* Diagnosis Pre-op evaluation- Primary Preoperative examination, unspecified Gastroesophageal reflux disease, unspecified whether esophagitis present Diabetes mellitus without complication (HCC) Type II or unspecified type diabetes mellitus without mention of complication, not stated as uncontrolled BMI 60.0-69.9, adult ([facility]) Body Mass Index 60.0-69.9, adult AQUILES (obstructive sleep apnea) Obstructive sleep apnea (adult) (pediatric) S/P foot surgery, right- Primary Chronic pain of right ankle [facility] Diagnosis Capsulitis of metatarsophalangeal (MTP) joint of right foot- Primary Contracture of right ankle Posterior tibial tendonitis of right leg documented [facility] encounter [facility] Narrative - Reported* Type Description Date Medical History Acquired hypothyroidism Medical Historyvitamin D deficiencySurgical Historycholecystectomy Hospitalization HistoryNo Hospitalization history information Accruent Other History of Present illness Narrative* Pato [...] Diagnosis Date Diabetes ([facility]) Ear problems GERD (gastroesophageal reflux [...] 2 diabetes mellitus without complication, 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 ([facility]) PLAN Patient to keep dry [...] Kidner right foot [facility]. Pt denies n/f/v/c and has [...] Medrol pack Patient is to receive a [place] style brace AFO to the right foot [...] Ibuprofen Pato Avelar DPM documented in this [facility] course Narrative No data available for this section [facility] Discharge instructions No data available for this section [facility] Discharge instructions Additional Instructions DISCHARGE INSTRUCTIONS FOR [...] operative site FOLLOW UP Phone numbers: Office [phone] [ ][facility] Work Phone: Progress note No data available for this section [facility] (narrative)* Diagnostic Procedure Only (Routine) - ClosedSpecialtyDiagnoses / ProceduresReferred By ContactReferred To ContactXR IMAGING Diagnoses Pain Procedures XR FOOT GENERAL 3V AP/LAT/OBL RIGHT RADEX FOOT COMPLETE MINIMUM 3 VIEWS Sean Mata DPM [address] [place] [address] [place] [address] Referral IDStaUniversity [facility]als [facility] DateExpiration DateVisits RequestedVisits [id number] Auto-Generated Referral [facility] for referral (narrative)* Diagnostic Procedure Only (Routine) - ClosedSpecialtyDiagnoses / ProceduresReferred By ContactReferred To ContactXR IMAGING Diagnoses Pain Procedures XR FOOT GENERAL 3V AP/LAT/OBL RIGHT RADEX FOOT COMPLETE MINIMUM 3 VIEWS Sean Mata DPM [address] [place] [address] [place] [address] Referral IDStatusasonStmapleville DateExpiration DateVisits RequestedVisits [id number] Auto-Generated Referral [facility] for referral (narrative)No reason for referral information availableUniversity Hospitals St. [facility] Work Phone: Reason for visit Narrative* Diagnostic Procedure Only (Routine) - ClosedSpecialtyDiagnoses / ProceduresReferred By ContactReferred To ContactXR IMAGING Diagnoses Pain Procedures XR FOOT GENERAL 3V AP/LAT/OBL RIGHT RADEX FOOT COMPLETE MINIMUM 3 VIEWS Sean Mata DPM [address] [place] [address] [place] [address] Referral IDStatusReasonStart DateExpiration DateVisits RequestedVisits [id number] Auto-Generated Referral [facility] for visit Narrative* Diagnostic Procedure Only (Routine) - ClosedSpecialtyDiagnoses / ProceduresReferred By ContactReferred To Contact XR IMAGING Diagnoses S/P foot surgery, right Procedures XR FOOT GENERAL 3V AP/LAT/OBL RIGHT RADEX FOOT COMPLETE MINIMUM 3 VIEWS Sean Mata DPM [address] [place] [address] Phone: tel: fax: [place] [address] Referral IDStatusReasonStmapleville DateExpiration DateVisits RequestedVisits [id number] Auto-Generated Referral [facility] [place] for visit Narrative* Diagnostic Procedure Only (Routine) - ClosedSpecialtyDiagnoses / ProceduresReferred By ContactReferred To Contact XR IMAGING Diagnoses S/P foot surgery, right Procedures XR FOOT GENERAL 3V AP/LAT/OBL RIGHT RADEX FOOT COMPLETE MINIMUM 3 VIEWS Sean Mata DPM [address] [place] [address] Phone: tel: fax: [place] [address] Referral IDStatusReasonStart DateExpiration DateVisits RequestedVisits [id number] Auto-Generated Referral [facility] [place] for visit Narrative* MRI/CT (Routine) - ClosedSpecialty Diagnoses / ProceduresReferred By ContactReferred To ContactMR IMAGING Diagnoses Chronic pain of right ankle Procedures MRI ANKLE WO IVCON RIGHT MRI ANY JT LOWER EXTREM W/O CONTRAST MATRL Sean Mata DPM [address] [place] [address] Phone: tel: fax: [facility] [address] Referral IDStatusReasonStdaniela DateExpiration DateVisits RequestedVisits [id number] Auto-Generated Referral / [facility] Summary Purpose Family History No Family [...] bone of right foot Pato Avelar DPM [address] [address] Referral IDStatusReasonStart DateExpiration DateVisits RequestedVisits [id number]/ Additional Source Comments REASON FOR VISIT (unrecogniz ed section and content) ReasonCommentsConsent Or InstructionsPre op- rt kidnerReasonCommentsPost-op1st post op rt ftReasonCommentsPost-op16 D post op rt ftReasonCommentsPost-op29 D rt ft F/UReasonCommentsFollow-upER FOLLOW UPReasonCommentsOtitis ExternaNew Patient : Otitis externa left earReasonCommentsFoot PainF/U rt ft painReasonOnset Date CommentsCasting For Braces Or Jimigydiv86/22/2024easonCommentsRadiology XR ReasonCommentsPainReasonCommentsSurgical FollowupReasonCommentsPre-Op ExamReason CommentsRadio Gen RMPReasonCommentsPost OpReasonCommentsPatient UpdateReason CommentsFoot PainReasonCommentsPost OpPainReasonCommentsFollow-upRt edlReason CommentsPost OpReasonCommentsAnkle Pain INFORMATION SOURCE (unrecogn ized section and content) DATE CREATED AUTHOR 05/06/2023 [facility] DATE CREATED AUTHOR AUTHOR'S ORGANIZ ATION 04/26/2024 [facility] DATE CREATED AUTHOR AUTHOR'S ORGANIZ ATION 07/01/2024 [facility] DATE CREATED AUTHOR AUTHOR'S ORGANIZ ATION 09/12/2024 [facility] DATE CREATED AUTHOR AUTHOR'S ORGANIZ ATION 09/13/2024 [facility] DATE CREATED AUTHOR AUTHOR'S ORGANIZ ATION 09/15/2024 [facility] DATE CREATED AUTHOR AUTHOR'S ORGANIZ ATION 12/09/2024 [facility] DATE CREATED AUTHOR AUTHOR'S ORGANIZ ATION 07/15/2025 [facility] DATE CREATED AUTHOR AUTHOR'S ORGANIZ ATION 09/05/2025 [facility] DATE CREATED AUTHOR AUTHOR'S ORGANIZ ATION 09/07/2025 [facility] EPIC Care Teams (unrecognized sec tion and content) Team Status: Active Member Role Status Dates LORI Alvarez Primary Care Provider Active Team Status: Active Member Role Status Dates Monique Alicia Lien , CEMENT CAR DUMPER-C Primary Care Provider Active Start: June 15, 2025 Merline French ProviderActiveStart: June 15, 2025 Neo Mclaughlin MDAdmit ProviderActiveStart: June 15, 2025 Neo Mclaughlin MDAttending ProviderActiveStart: June 15, 2025 Team Status: Inactive Member Role Status Dates Monique Dudley NP-C Attending Provider Active S tart: February 27, 2024 End: February 26lorene Emmanuel , [employer]-CPrimary Care ProviderActiveStart: February 27, 2024 End: February 27, 2024 Team Status: Active Member Role Status Dates Monique Dudley NP-C Attending Provider Active S tart: February 27, 2024 Monique Emmanuel , [employer]MP[employer]-CPrimary Care ProviderActiveStart: February 27, 2024 Team Status: Inactive Member Role Status Dates Monique Emmanuel , [employer]-C Primary Care Provider Active Start: May 16, 2024 End: May 16, 2024ADAN Hernandezttending ProviderActiveStart: May 16, 2024 End: May 16, 2024Team MemberRelationshipSpecialtyStart DateEnd Date Erich Garcia MD [address] [place] [phone] PCP - GeneralFamily Medicine07/24/24 Monique Emmanuel MD [address] [place] [address] Referring Physicianmily Medicine03/29/24 Monique Emmanuel MD [address] [place] [address] Referring Physicianmily Medicine07/24/24 Jaime Woods DO [address] [place] [address] Otolaryngology07/24/24Team MemberRelationshipSpecialtyStart DateEnd Erich Garcia MD [address] [place] [phone] PCP - GeneralFamily Medicine07/24/24 Monique Emmanuel MD [address] [place] [phone] Referring PhysicianFamily Medicine03/29/24 Monique Emmanuel MD [address] [place] [address] 288[address] Referring PhysicianFami Medicine07/24/24 Jaime Woods DO [address] [place] [address] Otolaryngology07/24/24Team MemberRelationshipSpecialtyStart DateEnd Erich Garcia MD [address] [place] [phone] PCP - GeneralFamily Medicine07/24/24 Monique Emmanuel MD [address] [place] [address] Referring PhysicianFamily Medicine03/29/24 Monique Emmanuel MD [address] [place] [address] Referring PhysicianFami Medicine07/24/24 Jaime Woods DO [address] [place] [address] Otolaryngology07/24/24Team MemberRelationshipSpecialtyStart End Erich Garcia MD [address] [place] [phone] PCP - GeneralFamily Medicine07/24/24 Monique Emmanuel MD [address] [place] [address] Referring PhysicianFamily Medicine03/29/24 Monique Emmanuel MD [address] [place] [phone] Referring PhysicianFami Medicine07/24/24 Jaime Woods DO [address] [address] Otolaryngology07/24/24Team MemberRelationshipSpecialtyStart DateEnd Erich Garcia MD [address] [place] [phone] PCP - GeneralFamily Medicine07/24/24 Monique Emmanuel MD [address] [place] [address] Referring PhysicianFamily Medicine03/29/24 Monique Emmanuel MD [address] [place] [address] Referring PhysicianFalongwood hospital Medicine07/24/24 Jaime Woods DO [address] [place] [address] Otolaryngology07/24/24Team MemberRelationshipSpecialtyStart End Erich Garcia MD [address] [place] [phone] PCP - GeneralFamily Medicine07/24/24 Monique Emmanuel MD [address] [place] [address] Referring PhysicianFamily Medicine03/29/24 Monique Emmanuel MD [address] [place] [address]39 Referring PhysicianFami Medicine07/24/24 Jaime Woods DO [address] [place] [address] Otolaryngology07/24/24Team MemberRelationshipSpecialtyStart DateEnd Erich Garcia MD [address] [place] [phone] PCP - GeneralFamily Medicine07/24/24 Monique Emmanuel MD [address] [place] [address] Referring PhysicianFamily Medicine03/29/24 Monique Emmanuel MD [address] [place] [address]58 Referring PhysicianFami Medicine07/24/24 Jaime Woods DO [address] [place] [address] Otolaryngology07/24/24Team MemberRelationshipSpecialtyStart DateEnd Date Erich Garcia MD [address] [place] [address] PCP - GeneralFamily Medicine07/24/24 Monique Emmanuel MD [address] [place] [address] Referring Physicianmily Medicine03/29/24 Monique Emmanuel MD [address] [place] [address] Referring PhysicianFamily Medicine07/24/24 Jaime Woods DO [address] [facility] [address] Otolaryngology07/24/24Team MemberRelationshipSpecialtyStart DateEnd Date Unallocated, Noms MD Ousmane [address] [place] [address] PCP - GeneralFamily Medicine03/29/24 Monique Emmanuel MD [address] [place] [address] Referring Physicianmi Medicine03/29/24Team MemberRelationshipSpecialtyStart DateEnd Date Erich Garcia MD [address] [place] [phone] PCP - Generalmily Medicine07/24/24 [place] [address] [place] [phone] Referring Physicianmily Medicine03/29/24 Monique Emmanuel MD [address] [place] [address] Referring PhysicianFamily Medicine07/24/24 Jaime Woods DO [address] [place] [address] Otolaryngology07/24/24Team MemberRelationshipSpecialtyStart DateEnd Date Unallocated, Noms MD Ousmane [address] [place] [address] PCP - GeneralFamily Medicine03/29/24 Monique Emmanuel MD [address] [place] [address] Referring Physicianmily Medicine03/29/24Team MemberRelationshipSpecialtyStart DateEnd Date Erich Garcia MD [address] [place] [phone] PCP - GeneralFamily Medicine07/24/24 Monique Emmanuel MD [address] [place] [address]96 Referring PhysicianFamily Medicine03/29/24 Monique Emmanuel MD [address] [place] [address] 61468 Referring PhysicianFamily Medicine07/24/24 Jaime Woods DO [address] [place] [address] Otolaryngology07/24/24Team MemberRelationshipSpecialtyStart DateEnd Date Erich Garcia MD [address] [place] [phone] PCP - GeneralFamily Medicine07/24/24 Monique Emmanuel MD [address] [place] [address] 569[address] Referring PhysicianFamily Medicine03/29/24 Monique Emmanuel MD [address] [place] [address]68 Referring PhysicianFamily Medicine07/24/24 Jaime Woods DO [address] [place] [address] Otolaryngology07/24/24Team MemberRelationshipSpecialtyStart DateEnd Date Erich Garcia MD [address] [place] [phone] PCP - GeneralFamily Medicine07/24/24 Monique Emmanuel MD [address] [place] [address]646 Referring PhysicianFamily Medicine03/29/24 Monique Emmanuel MD [address] [place] [address] 50098 Referring PhysicianFamily Medicine07/24/24 Jaime Woods DO [address] [place] [address] Otolaryngology07/24/24Team MemberRelationshipSpecialtyStart DateEnd Date Unallocated, Keily Romeo MD [address] [place] [address] PCP - GeneralFamily Medicine/ Erich Garcia MD [address] [place] [phone] PCP - GeneralFamily Medicine07/24/24 Monique Emmanuel MD [address] [place] [address] Referring PhysicianFamily Medicine03/29/24 Monique Emmanuel MD [address] [place], [place] [phone] Referring PhysicianFamily Medicine07/24/24 Jaime Woods DO [address] [facility] [place] [address] Otolaryngology07/24/24Team MemberRelationshipSpecialtyStart DateEnd Date Monique Emmanuel CNP [address] [place] [address] PCP - GeneralInternal Medicine12/17/24Team MemberRelationshipSpecialtyStart Date End Date Monique Emmanuel CNP [address] [place] [address] PCP - GeneralInternal Medicine12/17/24Team MemberRelationshipSpecialtyStart Date End Date Monique Emmanuel CNP [address] [place] [address] PCP - GeneralInternal Medicine12/17/24Team MemberRelationshipSpecialtyStart Date End Date Monique Emmanuel CNP [address] [facility] [place] [address] PCP - GeneralInternal Medicine12/17/24Team MemberRelationshipSpecialtyStart Date End Date Monique Emmanuel CNP [address] [facility] [place] [address] PCP - GeneralInternal Medicine12/17/24Team MemberRelationshipSpecialtyStart Date End Date Monique Emmanuel CNP [address] [facility] [place] [address] PCP - GeneralInternal Medicine12/17/24Team MemberRelationshipSpecialtyStart Date End Date Monique Emmanuel CNP [address] [facility] [place] [address] PCP - GeneralInternal Medicine12/17/24Team MemberRelationshipSpecialtyStart Date End Date Monique Emmanuel CNP [address] [facility] [place] [address] PCP - GeneralInternal Medicine12/17/24 Team Status: Inactive Member Role Status Dates Monique Emmanuel NP-C Primary Care Provider Active Start: February 05, 2025 End: February 05, 2025Nisreen Garcia ProviderActiveStart: February 05, 2025 End: February 05, 2025Team MemberRelationshipSpecialtyStart DateEnd Date Monique Emmanuel CNP [address] [facility] [place] [address] PCP - GeneralInternal Medicine12/17/24Team MemberRelationshipSpecialtyStart Date End Date Monique Emmanuel CNP [address] [facility] [place] [address] PCP - GeneralInternal Medicine12/17/24Team MemberRelationshipSpecialtyStart Date End Date Monique Emmanuel CNP [address] [place] [address] PCP - GeneralInternal Medicine12/17/24Team MemberRelationshipSpecialtyStart Date End Date Erich Garcia MD [address] [place] [phone] PCP - GeneralFamily Medicine07/24/24 Monique Emmanuel MD [address] [place] [address] 19601 Referring PhysicianFamily Medicine03/29/24 Monique Emmanuel MD [address] [place], [place] [phone] Referring PhysicianFamily Medicine07/24/24 Jaime Woods DO [address] [facility] [address] Otolaryngology07/24/24Team MemberRelationshipSpecialtyStart DateEnd Date Erich Garcia MD [address] [place] [phone] PCP - GeneralFamily Medicine07/24/24 Monique Emmanuel MD [address] [place] [address] 53919 Referring PhysicianFamily Medicine03/29/24 Monique Emmanuel MD [address] [place] [address]7986 Referring PhysicianFamily Medicine07/24/24 Jaime Woods DO [address] [place] [address] Otolaryngology07/24/24Team MemberRelationshipSpecialtyStart DateEnd Date Monique Emmanuel, IRENE [address] [facility] [place] [address] PCP - GeneralInternal Medicine12/17/24Team MemberRelationshipSpecialtyStart Date End Date Monique Emmanuel, IRENE [address] [place] [address] PCP - GeneralInternal Medicine12/17/24Team MemberRelationshipSpecialtyStart Date End Date Monique Emmanuel, IRENE [address] [facility] [place] [address] PCP - GeneralInternal Medicine12/17/24Team MemberRelationshipSpecialtyStart Date End Date Monique Emmanuel, IRENE [address] [facility] [place] [address] PCP - GeneralInternal Medicine12/17/24Team MemberRelationshipSpecialtyStart Date End Date Monique Emmanuel, IRENE [address] [facility] [place] [address] PCP - GeneralInternal Medicine12/17/24Team MemberRelationshipSpecialtyStart Date End Date Monique Emmanuel, IRENE [address] [facility] [place] [address] PCP - GeneralInternal Medicine12/17/24Team MemberRelationshipSpecialtyStart Date End Date Monique Emmanuel IRENE [address] [place] [phone] PCP - GeneralInternal Medicine12/17/24 Team Status: Active [...] or prosecute any alcohol or drug abuse patient.[facility] HospitalIn the event this information is protected by the Federal Confidentiality of Alcohol and Drug Abuse Patient Records regulations: The Federal rules restrict any use of the information to criminally investigate or prosecute any alcohol or drug abuse patient.[facility] HospitalIn the event this information is protected by the Federal Confidentiality of Alcohol and Drug Abuse Patient Records regulations: The Federal rules restrict any use of the information to criminally investigate or prosecute any alcohol or drug abuse patient.[facility] HospitalIn the event this information is protected by the Federal Confidentiality of Alcohol and Drug Abuse Patient Records regulations: The Federal rules restrict any use of the information to criminally investigate or prosecute any alcohol or drug abuse patient.[facility] HospitalIn the event this information is protected by the Federal Confidentiality of Alcohol and Drug Abuse Patient Records regulations: The Federal rules restrict any use of the information to criminally investigate or prosecute any alcohol or drug abuse patient.[facility] HospitalIn the event this information is protected by the Federal Confidentiality of Alcohol and Drug Abuse Patient Records regulations: The Federal rules restrict any use of the information to criminally investigate or prosecute any alcohol or drug abuse patient.[facility] HospitalIn the event this information is protected by the Federal Confidentiality of Alcohol and Drug Abuse Patient Records regulations: The Federal rules restrict any use of the information to criminally investigate or prosecute any alcohol or drug abuse patient.[facility] HospitalIn the event this information is protected by the Federal Confidentiality of Alcohol and Drug Abuse Patient Records regulations: The Federal rules restrict any use of the information to criminally investigate or prosecute any alcohol or drug abuse patient.[facility] HospitalIn the event this information is protected by the Federal Confidentiality of Alcohol and Drug Abuse Patient Records regulations: The Federal rules restrict any use of the information to criminally investigate or prosecute any alcohol or drug abuse patient.[facility] HospitalIn the event this information is protected by the Federal Confidentiality of Alcohol and Drug Abuse Patient Records regulations: The Federal rules restrict any use of the information to criminally investigate or prosecute any alcohol or drug abuse patient.[facility] HospitalIn the event this information is protected by the Federal Confidentiality of Alcohol and Drug Abuse Patient Records regulations: The Federal rules restrict any use of the information to criminally investigate or prosecute any alcohol or drug abuse patient.[facility] HospitalIn the event this information is protected by the Federal Confidentiality of Alcohol and Drug Abuse Patient Records regulations: The Federal rules restrict any use of the information to criminally investigate or prosecute any alcohol or drug abuse patient.[facility] HospitalIn the event this information is protected by the Federal Confidentiality of Alcohol and Drug Abuse Patient Records regulations: The Federal rules restrict any use of the information to criminally investigate or prosecute any alcohol or drug abuse patient.[facility] HospitalIn the event this information is protected by the Federal Confidentiality of Alcohol and Drug Abuse Patient Records regulations: The Federal rules restrict any use of the information to criminally investigate or prosecute any alcohol or drug abuse patient.[facility] HospitalIn the event this information is protected by the Federal Confidentiality of Alcohol and Drug Abuse Patient Records regulations: The Federal rules restrict any use of the information to criminally investigate or prosecute any alcohol or drug abuse patient.[facility] HospitalIn the event this information is protected by the Federal Confidentiality of Alcohol and Drug Abuse Patient Records regulations: The Federal rules restrict any use of the information to criminally investigate or prosecute any alcohol or drug abuse patient.[facility] HospitalIn the event this information is protected by the Federal Confidentiality of Alcohol and Drug Abuse Patient Records regulations: The Federal rules restrict any use of the information to criminally investigate or prosecute any alcohol or drug abuse patient.[facility] HospitalIn the event this information is protected by the Federal Confidentiality of Alcohol and Drug Abuse Patient Records regulations: The Federal rules restrict any use of the information to criminally investigate or prosecute any alcohol or drug abuse patient.[facility] HospitalIn the event this information is protected by the Federal Confidentiality of Alcohol and Drug Abuse Patient Records regulations: The Federal rules restrict any use of the information to criminally investigate or prosecute any alcohol or drug abuse patient.[facility] HospitalIn the event this information is protected by the Federal Confidentiality of Alcohol and Drug Abuse Patient Records regulations: The Federal rules restrict any use of the information to criminally investigate or prosecute any alcohol or drug abuse patient.[facility] HospitalIn the event this information is protected by the Federal Confidentiality of Alcohol and Drug Abuse Patient Records regulations: The Federal rules restrict any use of the information to criminally investigate or prosecute any alcohol or drug abuse patient.[facility] HospitalIn the event this information is protected by the Federal Confidentiality of Alcohol and Drug Abuse Patient Records regulations: The Federal rules restrict any use of the information to criminally investigate or prosecute any alcohol or drug abuse patient.[facility] HospitalIn the event this information is protected by the Federal Confidentiality of Alcohol and Drug Abuse Patient Records regulations: The Federal rules restrict any use of the information to criminally investigate or prosecute any alcohol or drug abuse patient.[facility] HospitalIn the event this information is protected by the Federal Confidentiality of Alcohol and Drug Abuse Patient Records regulations: The Federal rules restrict any use of the information to criminally investigate or prosecute any alcohol or drug abuse patient.[facility] HospitalIn the event this information is protected by the Federal Confidentiality of Alcohol and Drug Abuse Patient Records regulations: The Federal rules restrict any use of the information to criminally investigate or prosecute any alcohol or drug abuse patient.[facility] HospitalIn the event this information is protected by the Federal Confidentiality of Alcohol and Drug Abuse Patient Records regulations: The Federal rules restrict any use of the information to criminally investigate or prosecute any alcohol or drug abuse patient.[facility] HospitalIn the event this information is protected by the Federal Confidentiality of Alcohol and Drug Abuse Patient Records regulations: The Federal rules restrict any use of the information to criminally investigate or prosecute any alcohol or drug abuse patient.[facility] HospitalIn the event this information is protected by the Federal Confidentiality of Alcohol and Drug Abuse Patient Records regulations: The Federal rules restrict any use of the information to criminally investigate or prosecute any alcohol or drug abuse patient.[facility] HospitalIn the event this information is protected by the Federal Confidentiality of Alcohol and Drug Abuse Patient Records regulations: The Federal rules restrict any use of the information to criminally investigate or prosecute any alcohol or drug abuse patient.[facility] HospitalIn the event this information is protected by the Federal Confidentiality of Alcohol and Drug Abuse Patient Records regulations: The Federal rules restrict any use of the information to criminally investigate or prosecute any alcohol or drug abuse patient.[facility] FOR RECORDS PERTAINING TO PATIENTS WHO [...] BE BASED ON THE PRIMARY CLINICAL RECORDS. [facility] [employer] [facility]. provides no warranty or guarantee of the accuracy or completeness of information in this document.
--- NOTE | 2025-11-06 07:37 | MR_ITS ---
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 PROTOCOL: Multiplanar multisequence MR images of the right ankle without IV contrast COMPARISON: None FINDINGS: Alignment: Normal. Fluid: Tibiotalar: There is a small joint effusion which is of uncertain significance and talar joint. Subtalar: No joint effusion. Medial: Medial malleolus: Intact. Tendons: Posterior tibial tendon: Postsurgical changes are noted along the posterior tibial tendon beneath the medial malleolus adjacent to the anterior process of talus/talonavicular joint with thickening along its insertion, irregular signal intensity, and areas of susceptibility which are presumably postoperative in nature. The tendon is otherwise intact and normal in signal possible to this. Flexor digitorum longus: Intact. Flexor hallucis longus: Fluid is noted along the tendon sheath of the flexor hallucis longus tendon suggesting tenosynovitis. Ligaments: Deltoid ligament complex - superficial: Intact. Deltoid ligament complex - deep: Intact. Spring (plantar calcaneo-navicular) ligament: Intact. Lateral: Lateral malleolus: Normal. Retromalleolar groove: Normal. Tendons: Peroneus longus: There is a small amount of fluid along the tendon sheath suggesting tenosynovitis. Peroneus brevis: There is a small amount of fluid along the tendon sheath suggesting tenosynovitis. Peroneal retinaculum: Intact. Ligaments: Anterior inferior tibiofibular (syndesmosis): Intact. Posterior inferior tibiofibular (syndesmosis): Intact. Anterior talofibular ligament: Intact. Calcaneofibular ligament: Intact. Posterior talofibular ligament: Intact. Posterior: Posterior talus: Normal. Intermalleolar ligament: Intact. Achilles tendon: Intact. Plantar fascia: Intact. Anterior: Tendons: Anterior tibial tendon: Intact. Extensor hallucis longus: Intact. Extensor digitorum longus: Intact. Tibiotalar joint: Intact. Subtalar joint: Intact. Bones (other than subarticular marrow): Normal Muscles: Normal Tarsal tunnel: Normal Sinus tarsi: Normal. MR/MR ankle RT wo con IMPRESSION: Postsurgical changes are noted along the posterior tibial tendon beneath the medial malleolus adjacent to the anterior process of talus/talonavicular joint with thickening along its insertion, irregular signal intensity, and areas of susceptibility which are presumably postoperative in nature. The tendon is otherwise intact and normal in signal possible to this. Fluid is noted along the tendon sheath of the flexor hallucis longus tendon suggesting tenosynovitis. There is a small amount of fluid along the peroneal tendon sheaths suggesting tenosynovitis. Impression dictated by: Fermín Wilks M.D. 11/06/2025 9:01 AM Dictation Location: [place] [address] Electronically authenticated by: [id number] Date: 11/06/2025 09:01
== END 2025-11-06 07:32 | disposition home or self-care (01) ==
LOC: MRI 07:32
PROVIDERS: PCP Nurse Practitioner Family
DX: M66.871 Spontaneous rupture of other tendons, right ankle and foot (principal); Z98.890 Other specified postprocedural states
CPT/HCPCS: 73721